=== PATIENT | male | born 1955 | race Caucasian/White ===

== ENCOUNTER 2017-07-17 09:45 | Emergency (ER) | payer SELFPAY ==
--- NOTE | 2017-07-17 11:35 | ER ---
Nurse's Notes [facility] Name: Fred Hardy Age: 61 yrs Sex: Male : 1955 Arrival Date: 07/17/2017 Time: 09:52 Bed Waiting Private MD: Diagnosis: ED Course: 07/17 09:52 Patient arrived in ED. sb2 10:06 Patient's name was called from ER lobby. No response. ph 10:40 Patient's name was called from ER lobby. No response. Unable to locate patient. Will ph disposition as left without being seen by a provider. Administered Medications: No medications were administered Outcome: 11:34 Patient left the ED. ph Signatures: Rhoda Moreno RN RN ph Saumya Boles sb2 Corrections: (The following items were deleted from the chart) 10:23 10:06 Method Of Arrival: Ambulatory ph ph
== END 2017-07-17 11:34 | disposition left against medical advice (07) ==
LOC: ER 09:45
DX: Z53.21 Procedure and treatment not carried out due to patient leaving prior to being seen by health care provider (principal)

== ENCOUNTER 2017-11-13 18:41 | Emergency (ER) | payer BC ==
[2017-11-13 19:32] LABS: Absolute Monocytes 0.9 K/uL (0.1-1.3); Absolute Neutrophil 9.7 K/uL (1.8-8.0); Basophils % 0.7 % (0-1.3); Eosinophils % 0.7 % (0-4.4); Hematocrit 25.8 % (39.6-49.0); Lymphocytes % 15.7 % (15.3-44.8); MCH 31.8 pg (27.0-35.0); MCV 94.9 fL (80-100); Monocytes % 7.1 % (3.3-12.3); RBC Red Blood Cell Count 2.72 M/uL (4.33-5.43)
[2017-11-13 19:33] LABS: Protime INR 1.29
[2017-11-13 19:49] LABS: ALT/SGPT 17 U/L (12-78); AST/SGOT 10 U/L (15-37); Albumin 2.1 g/dL (3.4-5.0); Alkaline Phosphatase 82 U/L (45-117); BUN Blood Urea Nitrogen 19 mg/dL (7-18); Bicarbonate 27 mmol/L (21-32); Bilirubin Direct 0.2 mg/dL (0-0.2); Bilirubin Total 0.5 mg/dL (0.2-1.0); CKMB Creatine Kinase MB < 1.0 ng/mL (0.3-3.6); Creatine Phosphokinase 34 U/L (39-308); Glucose Level 89 mg/dL (74-106); Magnesium 2.2 mg/dL (1.8-2.4); NT PRO-BNP 1406 pg/mL (<125); Potassium 3.3 mmol/L (3.5-5.1); Protein, Total 6.2 g/dL (6.4-8.2); Sodium Level 140 mmol/L (136-145); Troponin (Emerg Dept Use Only) 0.04 ng/mL (0.0-0.045)
[2017-11-13] MEDS ORDERED: ASPIRIN 81 MG CHEWABLE TABLET ONE (21:11)
[2017-11-13] MEDS ORDERED: LORazepam 2 MG/ML VIAL ONE (21:12)
[2017-11-13] MEDS ORDERED: POTASSIUM CL SA 10 MEQ TAB PO ONE (21:12)
[2017-11-13] MEDS ORDERED: PANTOPRAZOLE 40 MG INJ ONE (21:12)
--- NOTE | 2017-11-13 21:23 | RAD REPORT ---
EXAM DESCRIPTION: Hari Single View11/13/2017 7:49 pm CLINICAL HISTORY: Chest pain COMPARISON: 2016 FINDINGS: The lungs appear clear of acute infiltrate. The heart is mildly enlarged. Postsurgical ch anges involve the chest IMPRESSION: No acute abnormalities displayed
[2017-11-13 21:45] LABS: Arterial Blood Carboxyhemoglob 2.3 % (0-1.5); Blood O2 Saturation 92.5 % (92-98.5)
--- NOTE | 2017-11-13 22:01 | ER ---
Nurse's Notes [facility] Name: Fred Hardy Age: 62 yrs Sex: Male : 1955 Arrival Date: 11/13/2017 Time: 18:44 Bed 26 Private MD: Diagnosis: Chest pain. S/P CABG Presentation: 11/13 18:44 Presenting complaint: Patient states: Chest and shoulder pressure that started today at aj 1700, S/P CABG on 11/02. Patient discharged from [facility] today at 1500. Transition of care: patient was not received from another setting of care. Onset of symptoms was November 13, 2017. Risk Assessment: Do you want to hurt yourself or someone else? Patient reports no desire to harm self or others. Initial Sepsis Screen: Does the patient meet any 2 criteria? No. Patient's initial sepsis screen is negative. Does the patient have a suspected source of infection? No. Patient's initial sepsis screen is negative. Care prior to arrival: IV initiated. 18 GA, in the left antecubital area. 18:44 Method Of Arrival: EMS: [facility] 18:44 Acuity: JOSÉ MIGUEL 3 aj Triage Assessment: 18:55 General: Appears in no apparent distress. comfortable, Behavior is cooperative, aj anxious. Pain: Complains of pain in chest. Neuro: Level of Consciousness is awake, alert, obeys commands, Oriented to person, place, time, situation, Appropriate for age. Cardiovascular: Reports chest pain, shortness of breath, Capillary refill < 3 seconds in bilateral fingers Patient's skin is warm and dry. Respiratory: Airway is patent Respiratory effort is even, unlabored, Respiratory pattern is hyperventilation Breath sounds are clear bilaterally. the patient has mild shortness of breath. Derm: Skin is intact, is healthy with good turgor, Skin is pink, warm \\T\\ dry. normal, Bruising that is dark purple, on right upper thigh and right quadriceps. Historical: - Allergies: 18:55 PENICILLINS; aj 18:55 IV contrast; aj - Home Meds: 18:55 aspirin 81 mg Oral TbEC 1 tab once daily [Active]; buspirone 10 mg Oral tab 1 tab 2 aj times per day [Active]; clopidogrel 75 mg oral tab 1 tab once daily [Active]; docusate sodium 100 mg Oral cap 1 cap 2 times per day [Active]; ferrous sulfate 325 mg (65 mg iron) Oral TbEC [Active]; furosemide 40 mg Oral tab 1 tab once daily [Active]; potassium chloride 20 mEq Oral TbER 1 tab once daily [Active]; lisinopril 20 mg Oral tab 1 tab once daily [Active]; metoprolol tartrate 25 mg Oral tab 1 tab 2 times per day [Active]; pantoprazole 40 mg oral TbEC 1 tab once daily [Active]; Senokot 8.6 mg Oral tab 2 tabs once daily [Active]; simvastatin 20 mg Oral tab 1 tab once daily [Active]; Chantix Starting Month Box 0.5 mg (11)- 1 mg (42) oral DsPk [Active]; zolpidem 10 mg Oral tab 1 tab once daily [Active]; - PMHx: 18:55 Hypertension; Hyperlipidemia; aj - PSHx: 18:55 CABG; aj - Immunization history:: Adult Immunizations up to date. - Social history:: Smoking status: Patient/guardian denies using tobacco. - Ebola Screening: : Patient negative for fever greater than or equal to 101.5 degrees Fahrenheit, and additional compatible Ebola Virus Disease symptoms Patient denies exposure to infectious person Patient denies travel to an Ebola-affected area in the 21 days before illness onset No symptoms or risks identified at this time. Screenin:01 Abuse screen: Denies threats or abuse. Denies injuries from another. Nutritional aj screening: No deficits noted. Tuberculosis screening: No symptoms or risk factors identified. Fall Risk None identified. Assessment: 19:29 Reassessment: Patient appears in no apparent distress at this time. No changes from aj previously documented assessment. Patient and/or family updated on plan of care and expected duration. Pain level reassessed. Patient is alert, oriented x 3, equal unlabored respirations, skin warm/dry/pink. Patient is resting in bed with eyes closed. Patient stated that he was trying to sleep. Rated pain at 2/10. Family at bedside. 20:56 Reassessment: Patient is in lobby with family per patient request. Gilmar Benson and Dr keri Alvarado aware and told patient he could go to lobby. Patient not on monitors with IV in place. Patient made aware of risks of going to lobby with no monitoring. Patient states "I just have anxiety and I have got to get out of this room and walk around, but they told me I had to sit in a wheelchair." Lynnette Walsh notified of this nurses concern. 21:00 Pain: Pain does not radiate. Pain began suddenly. mg2 21:12 Reassessment: Patient returned to room and remains seated in wheelchair per patient aj request. Placed on school lunch monitor, BP cuff, and pulse oximeter. Lynnette Walsh speaking to patient's daughter on phone. Vital Signs: 18:55 BP 103 / 62; Pulse 82; Resp 20; Temp 97.7; Pulse Ox 98% on R/A; Weight 107.5 kg; Height aj 6 ft. 4 in. (193.04 cm); 19:15 BP 109 / 64; Pulse 73; Resp 20; Pulse Ox 100% on 2 lpm NC; aj 19:30 BP 99 / 60; Pulse 78; Resp 17; Pulse Ox 98% on R/A; aj 19:47 BP 114 / 66; Pulse 79; Resp 20; Pulse Ox 99% on R/A; aj 20:15 BP 108 / 66; Pulse 81; Resp 17; Pulse Ox 99% on R/A; aj 20:30 BP 122 / 67; Pulse 83; Resp 17; Pulse Ox 99% on R/A; aj 20:45 BP 110 / 69; Pulse 86; Resp 20; Pulse Ox 99% on R/A; aj 21:09 BP 116 / 76; Pulse 87; Resp 19; Pulse Ox 95% on R/A; aj 21:30 BP 110 / 78; Pulse 90; Resp 22; Pulse Ox 99% on R/A; aj 18:55 Body Mass Index 28.85 (107.50 kg, 193.04 cm) aj 19:30 Patient resting comfortably in bed with eyes closed. aj ED Course: 18:44 Patient arrived in ED. aj 18:47 Gilmar Benson PA is PHCP. cp 18:47 Gilmar Miranda MD is Attending Physician. cp 18:47 Triage completed. aj 18:55 Arm band placed on left wrist. Patient placed in an exam room, on a stretcher. aj 19:01 Patient has correct armband on for positive identification. Bed in low position. Side aj rails up X2. Adult w/ patient. cafeteria monitor on. Pulse ox on. NIBP on. 19:01 Maintain EMS IV. Gauge \\T\\ site: 18 to left AC. Patient maintains SpO2 saturation greater aj than 95% on room air. 19:27 Shandra Buchanan, RN is Primary Nurse. aj 19:50 XRAY Chest (1 view) In Process Unspecified. EDMS 20:11 Dami Alvarado MD is Attending Physician. cp 22:05 No provider procedures requiring assistance completed. mg2 22:17 IV discontinued, intact, bleeding controlled, No redness/swelling at site. Pressure mg2 dressing applied. Administered Medications: 21:21 Drug: ProTONIX 40 mg Route: IVP; Site: left antecubital; aj 22:01 Follow up: Response: No adverse reaction mg2 21:21 Drug: Aspirin Chewable Tablet 324 mg Route: PO; aj 22:01 Follow up: Response: No adverse reaction mg2 21:21 Drug: Ativan 0.5 mg Route: IVP; Site: left antecubital; aj 22:01 Follow up: Response: No adverse reaction mg2 21:21 Drug: Potassium Chloride 40 mEq Route: PO; aj 22:00 Follow up: Response: No adverse reaction mg2 Outcome: 22:00 Discharge ordered by . iesha 22:17 Discharged to home via wheelchair. mg2 22:17 Condition: stable 22:17 Discharge instructions given to patient, family, Instructed on discharge instructions, follow up and referral plans. medication usage, Demonstrated understanding of instructions, follow-up care, medications, Prescriptions given X 2. 22:18 Patient left the ED. mg2 Signatures: Dispatcher [employer] EDAZ Shandra Buchanan, RN Dami Lomeli MD MD pkl Page, Corey, PA PA cp Gardose, Michele, RN RN mg2
--- NOTE | 2017-11-13 22:01 | EDPHYS ---
Physician Documentation [facility] Name: Fred Hardy Age: 62 yrs Sex: Male : 1955 Arrival Date: 11/13/2017 Time: 18:44 Bed 26 Private MD: ED Physician Dami Alvarado HPI: 11/13 19:00 This 62 yrs old Male presents to ER via EMS with complaints of Chest Pain. cp 19:00 The patient or guardian reports chest pain that is located primarily in the anterior cp chest wall. 19:00 Onset: today, at 17:00. Associated signs and symptoms: Pertinent positives: shortness cp of breath, Pertinent negatives: cough, diaphoresis, dizziness, lower extremity pain, lower extremity swelling, syncope. Duration: The patient or guardian reports a single episode, that is now resolved. Patient reports recent quadruple bypass surgery on 11-02-2017 by photoengraving sketch maker at [facility]. Patient reports having episode of chest pain yesterday, being evaluated at [place] [facility] and transferred to [facility]. Patient reports he was released this afternoon. Historical: - Allergies: 18:55 PENICILLINS; aj 18:55 IV contrast; aj - Home Meds: 18:55 aspirin 81 mg Oral TbEC 1 tab once daily [Active]; buspirone 10 mg Oral tab 1 tab 2 aj times per day [Active]; clopidogrel 75 mg oral tab 1 tab once daily [Active]; docusate sodium 100 mg Oral cap 1 cap 2 times per day [Active]; ferrous sulfate 325 mg (65 mg iron) Oral TbEC [Active]; furosemide 40 mg Oral tab 1 tab once daily [Active]; potassium chloride 20 mEq Oral TbER 1 tab once daily [Active]; lisinopril 20 mg Oral tab 1 tab once daily [Active]; metoprolol tartrate 25 mg Oral tab 1 tab 2 times per day [Active]; pantoprazole 40 mg oral TbEC 1 tab once daily [Active]; Senokot 8.6 mg Oral tab 2 tabs once daily [Active]; simvastatin 20 mg Oral tab 1 tab once daily [Active]; Chantix Starting Month Box 0.5 mg (11)- 1 mg (42) oral DsPk [Active]; zolpidem 10 mg Oral tab 1 tab once daily [Active]; - PMHx: 18:55 Hypertension; Hyperlipidemia; aj - PSHx: 18:55 CABG; aj - Immunization history:: Adult Immunizations up to date. - Social history:: Smoking status: Patient/guardian denies using tobacco. - Ebola Screening: : Patient negative for fever greater than or equal to 101.5 degrees Fahrenheit, and additional compatible Ebola Virus Disease symptoms Patient denies exposure to infectious person Patient denies travel to an Ebola-affected area in the 21 days before illness onset No symptoms or risks identified at this time. ROS: 19:05 Constitutional: Negative for body aches, chills, fever, poor PO intake. cp 19:05 Eyes: Negative for injury, pain, redness, and discharge. cp 19:05 ENT: Negative for drainage from ear(s), ear pain, sore throat, difficulty swallowing, difficulty handling secretions. 19:05 Cardiovascular: Positive for chest pain, Negative for edema, palpitations. 19:05 Respiratory: Negative for cough, shortness of breath, wheezing. 19:05 Abdomen/GI: Negative for abdominal pain, nausea, vomiting, and diarrhea, constipation, black/tarry stool, rectal bleeding. 19:05 : Negative for urinary symptoms. 19:05 Skin: Negative for cellulitis, rash. 19:05 Neuro: Negative for altered mental status, headache, weakness. 19:05 All other systems are negative. Exam: 18:10 Constitutional: The patient appears in no acute distress, alert, awake, cp non-diaphoretic, non-toxic, well developed, well nourished. 18:10 Head/Face: Normocephalic, atraumatic. Eyes: Pupils equal round and reactive to light, cp extra-ocular motions intact. Lids and lashes normal. Conjunctiva and sclera are non-icteric and not injected. Cornea within normal limits. Periorbital areas with no swelling, redness, or edema. 18:10 ENT: External ear(s): are unremarkable, Nose: is normal, Mouth: Lips: moist, Oral mucosa: moist, Posterior pharynx: is normal, airway is patent, no erythema, no exudate. 18:10 Neck: ROM/movement: is normal, is supple, without pain, no range of motions limitations, no nuchal rigidity. 18:10 Chest/axilla: Palpation: is normal, no crepitus, no tenderness. 18:10 Cardiovascular: Rate: normal, Rhythm: regular, Pulses: Pulses are 2+ in right radial artery and left radial artery. Edema: is not appreciated. 18:10 Respiratory: the patient does not display signs of respiratory distress, Respirations: labored breathing, is not present, intercostal retractions, are absent, shallow respirations, are not present, splinting, is not noted, Breath sounds: decreased breath sounds, that are mild, are located in both bases, stridor, is not appreciated, wheezing: is not appreciated. 18:10 Abdomen/GI: Inspection: distension, is not seen, scar(s), Bowel sounds: active, all quadrants, Palpation: soft, in all quadrants, mild abdominal tenderness, in all quadrants. 18:10 Back: pain, is absent, ROM is normal. 18:10 Skin: cellulitis, is not appreciated, no rash present. 18:10 Neuro: Orientation: to person, place \T\ time. Mentation: lucid, able to follow commands, Cerebellar function: is grossly normal, Motor: moves all fours, strength is normal, Sensation: no obvious gross deficits. 18:45 ECG was reviewed by the Attending Physician. cp Vital Signs: 18:55 BP 103 / 62; Pulse 82; Resp 20; Temp 97.7; Pulse Ox 98% on R/A; Weight 107.5 kg; Height aj 6 ft. 4 in. (193.04 cm); 19:15 BP 109 / 64; Pulse 73; Resp 20; Pulse Ox 100% on 2 lpm NC; aj 19:30 BP 99 / 60; Pulse 78; Resp 17; Pulse Ox 98% on R/A; aj 19:47 BP 114 / 66; Pulse 79; Resp 20; Pulse Ox 99% on R/A; aj 20:15 BP 108 / 66; Pulse 81; Resp 17; Pulse Ox 99% on R/A; aj 20:30 BP 122 / 67; Pulse 83; Resp 17; Pulse Ox 99% on R/A; aj 20:45 BP 110 / 69; Pulse 86; Resp 20; Pulse Ox 99% on R/A; aj 21:09 BP 116 / 76; Pulse 87; Resp 19; Pulse Ox 95% on R/A; aj 21:30 BP 110 / 78; Pulse 90; Resp 22; Pulse Ox 99% on R/A; aj 18:55 Body Mass Index 28.85 (107.50 kg, 193.04 cm) aj 19:30 Patient resting comfortably in bed with eyes closed. aj MDM: 18:47 Patient medically screened. 19:30 Differential diagnosis: pneumonia pulmonary embolism, acute OR, pericarditis, cp esophagitis, GERD. 20:05 Physician consultation: DR Robins, cardiothoracic surgery \T\[facility], does not feel patient cp needs to be transferred at this time and is safe for f/u in clinic. 20:46 Data reviewed: vital signs, nurses notes, lab test result(s), EKG, radiologic studies, cp plain films. Test interpretation: by ED physician or midlevel provider: ECG, plain radiologic studies. 21:14 ED course: VSS. Pain resolved. Patient seen and evaluated by DR Alvarado who requests repeat cp EKG and troponin. Will discharge to home if repeat EKG and troponin level negative. 22:01 ED course: Patient feeling better. Discussed EKG, lab and X' rays with patient and iesha Raman ( [facility] ) No indication for transfer or admission.. 11/13 18:59 Order name: Basic Metabolic Panel; Complete Time: 19:52 11/13 20:44 Interpretation: Normal except: K 3.3; BUN 19; GFR 68; CA 7.7. 11/13 18:59 Order name: CBC with Diff; Complete Time: 19:52 11/13 19:53 Interpretation: Normal except: WBC 12.7; RBC 2.72; HGB 8.7; HCT 25.8; MCV 94.9; PLT cp 469; RDW 15.5; TD% 75.8; NEUT A 9.7. 11/13 18:59 Order name: Ckmb; Complete Time: 19:52 11/13 18:59 Order name: CPK; Complete Time: 19:52 11/13 20:45 Interpretation: CPK 34; Reviewed. 11/13 18:59 Order name: LFT's; Complete Time: 19:52 11/13 19:53 Interpretation: Normal except: AST 10; TP 6.2; ALB 2.1; GLOB 4.1; A/G 0.5. 11/13 18:59 Order name: Magnesium; Complete Time: 19:52 11/13 18:59 Order name: NT PRO-BNP; Complete Time: 19:52 cp 11 19:53 Interpretation: Abnormal: NT PRO-BNP 1406. 11/13 18:59 Order name: PT-INR; Complete Time: 19:52 cp 11 20:45 Interpretation: Abnormal: PT 15.3. cp / 18:59 Order name: Ptt, Activated; Complete Time: 19:52 11/13 18:59 Order name: Troponin (emerg Dept Use Only); Complete Time: 19:52 11/13 19:54 Interpretation: TROPED 0.04; Reviewed. 11/13 19:31 Order name: Lipase; Complete Time: 20:44 cp 11/13 20:45 Interpretation: Within normal limits: LIP 131. 11/13 19:31 Order name: LAB Add On 11/13 20:56 Order name: ABG; Complete Time: 21:57 11/13 21:11 Order name: Troponin I; Complete Time: 21:57 11/13 18:59 Order name: XRAY Chest (1 view); Complete Time: 21:57 cp 11/13 18:59 Order name: EKG; Complete Time: 18:59 cp 11/13 18:59 Order name: Cardiac monitoring; Complete Time: 19:27 cp 11/13 18:59 Order name: EKG - Nurse/Tech; Complete Time: 19:27 cp 11/13 18:59 Order name: IV Saline Lock; Complete Time: 19:27 11/13 18:59 Order name: Labs collected and sent; Complete Time: 19:28 11/13 18:59 Order name: O2 Per Protocol; Complete Time: 19:28 11/13 18:59 Order name: O2 Sat Monitoring; Complete Time: 19:28 11/13 21:11 Order name: EKG; Complete Time: 21:12 cp EC:45 Rate is 83 beats/min. Rhythm is regular. DC interval is normal. QRS interval is normal. cp QT interval is normal. T waves are Flattened in lead aVL. Interpreted by me. Reviewed by me. Administered Medications: 21:21 Drug: ProTONIX 40 mg Route: IVP; Site: left antecubital; aj 22:01 Follow up: Response: No adverse reaction mg2 21:21 Drug: Aspirin Chewable Tablet 324 mg Route: PO; aj 22:01 Follow up: Response: No adverse reaction mg2 21:21 Drug: Ativan 0.5 mg Route: IVP; Site: left antecubital; aj 22: Follow up: Response: No adverse reaction mg2 21:21 Drug: Potassium Chloride 40 mEq Route: PO; aj 22:00 Follow up: Response: No adverse reaction mg2 Disposition: 21:59 Co-signature as Attending Physician, Dami Alvarado MD. pkl Disposition: 11/13/17 22:00 Discharged to Home. Impression: Chest pain. S/P CABG. - Condition is Stable. - Prescriptions for Ativan 1 mg Oral Tablet - take 1 tablet by ORAL route every 8 hours As needed; 20 tablet. Tylenol- Codeine #3 300-30 mg Oral Tablet - take 1 tablet by ORAL route every 6 hours As needed; 30 tablet. - Medication Reconciliation Form, Thank You Letter, Antibiotic Education, Prescription Opioid Use form. - Follow up: Private Physician; When: 1 - 2 days; Reason: Re-evaluation by your physician. - Problem is new. - Symptoms have improved. Signatures: Dispatcher [employer] EDShandra Duque, RN RN Dami Lin MD MD pkl Gilmar Benson PA PA Ab Vaz RN RN mg2 Corrections: (The following items were deleted from the chart) 20:45 19:52 Normal except: K 3.3; BUN 19; GFR 68. cp cp 22:18 22:00 11/13/2017 22:00 Discharged to Home. Impression: Chest pain. S/P CABG. Condition mg2 is Stable. Forms are Medication Reconciliation Form, Thank You Letter, Antibiotic Education, Prescription Opioid Use. Follow up: Private Physician; When: 1 - 2 days; Reason: Re-evaluation by your physician. Problem is new. Symptoms have improved. pkl
--- OUTSIDE RECORDS SUMMARY | 2017-11-14 08:11 | XMS REPORT | Clinical Summary ---
:1955 Author Organization [facility] Address [address] [place] [address] Phone Care Team Providers Name Role Phone Unavailable Primary Care Provider Unavailable Allergies No Known Allergies Current Medications No known medications Active Problems Problem Noted Date CVA (cerebral vascular accident) ([facility]) 08/28/2015 Essential hypertension with goal blood pressure less than 140/90 08/28/2015 Cocaine abuse 08/28/2015 Tobacco abuse 08/28/2015 Left hemiparesis ([facility]) 08/27/2015 Family History Medical History Relation Name Comments Diabetes Father Hypertension Father Stroke Father Diabetes Mother Hypertension Mother Relation Name Status Comments Father Mother Social History Tobacco Use Types Packs/Day Years Used Date Current Every Day Smoker Cigarettes 0.5 Alcohol Use Drinks/Week oz/Week Comments No Sex Assigned at Date Recorded Not on file Last Filed Vital Signs Not on file Plan of Treatment Not on file Results Not on fileafter 11/12/2016
--- NOTE | 2017-11-14 12:10 | EKG ---
Test Date: 2017-11-13 Test Time: 21:52:01 Metal Stamping Machine Operator: MEASUREMENT RESULTS: Intervals: Rate: 84 FL: 160 QRSD: 76 QT: 372 QTc: 439 [place]: P: 43 FL: 160 QRS: 73 T: 76 INTERPRETIVE STATEMENTS: Normal sinus rhythm Nonspecific ST abnormality Abnormal ECG Compared to ECG 08/27/2015 14:44:11 ST (T wave) deviation now present Myocardial infarct finding no longer present Electronically Signed On 11-14-17 12:08:44 CDT by Lonny Ascencio
--- NOTE | 2017-11-14 12:12 | EKG ---
Test Date: 2017-11-13 Test Time: 18:39:07 Health Policy Analyst: MEASUREMENT RESULTS: Intervals: Rate: 83 NE: 158 QRSD: 84 QT: 398 QTc: 467 [place]: P: 50 NE: 158 QRS: 62 T: 65 INTERPRETIVE STATEMENTS: Normal sinus rhythm Normal ECG Compared to ECG 08/27/2015 14:44:11 Myocardial infarct finding no longer present Electronically Signed On 11-14-17 12:08:52 CDT by Lonny Ascencio
== END 2017-11-13 22:18 | disposition home or self-care (01) ==
LOC: ER 18:41
DX: R07.9 Chest pain, unspecified (principal); Z95.1 Presence of aortocoronary bypass graft; I10 Essential (primary) hypertension; E78.5 Hyperlipidemia, unspecified; Z79.82 Long term (current) use of aspirin; Z88.0 Allergy status to penicillin; Z91.041 Radiographic dye allergy status
CPT/HCPCS: 36415; 71045; 80048; 80076; 82550; 82553; 82805; 83690; 83735; 83880; 84484; 85025; 85610; 85730; 93005; 96374; 96375; 99285; C9113

== ENCOUNTER 2018-01-09 14:59 | Emergency (ER) | payer BC ==
--- OUTSIDE RECORDS SUMMARY | 2018-01-09 15:02 | XMS REPORT | Clinical Summary ---
:1955 Author Organization [facility] Address [address] [place], [place] [address] [address] Care Team Providers Name Role Phone Connor Primary Care Provider Allergies No Known Allergies Medications No known medications Active Problems Problem Noted Date CVA (cerebral vascular accident) 08/28/2015 Essential hypertension with goal blood pressure less than 140/90 08/28/2015 Cocaine abuse 08/28/2015 Tobacco abuse 08/28/2015 Left hemiparesis 08/27/2015 Family History Medical History Relation Name Comments Diabetes Father Hypertension Father Stroke Father Diabetes Mother Hypertension Mother Relation Name Status Comments Father Mother Social History Tobacco Use Types Packs/Day Years Used Date Current Every Day Smoker Cigarettes 0.5 Alcohol Use Drinks/Week oz/Week Comments No Sex Assigned at Date Recorded Not on file Job Start Date Occupation Industry Not on file Not on file Not on file Travel History Travel Start Travel End No recent travel history available. Last Filed Vital Signs Not on file Plan of Treatment Not on file Results Not on fileafter 01/08/2017 Insurance Payer Benefit Plan / Subscriber ID Type Phone Address Group BLUE CROSS/BLUE BCBS PPO POS EPO xxxxxxxxxxxx PPO [phone] [address] [place] [address] Advance Directives For more information, please contact:[address], [place] [phone] Code Status Date Activated Date Inactivated Comments Full Code 08/27/2015 10:05 PM 08/31/2015 1:59 PM This code status was determined by: Patient
[2018-01-09] MEDS ORDERED: ONDANSETRON 4 MG/2 ML VIAL ONE (15:58)
[2018-01-09 16:07] LABS: Absolute Lymphocytes (CBC) 1.5 K/uL (0.7-4.9); Absolute Monocytes 0.7 K/uL (0.1-1.3); Absolute Neutrophil 6.5 K/uL (1.8-8.0); Lymphocytes % 16.8 % (15.3-44.8); MCH 27.4 pg (27.0-35.0); MPV 8.1 fL (7.6-11.3); Monocytes % 7.8 % (3.3-12.3); RBC Red Blood Cell Count 4.05 M/uL (4.33-5.43)
[2018-01-09 16:11] LABS: Protime INR 1.28
[2018-01-09] MEDS ORDERED: NA CHLORIDE 0.9% 1,000 ML ONE (16:20)
[2018-01-09 16:25] LABS: ALT/SGPT 12 U/L (12-78); AST/SGOT 13 U/L (15-37); Albumin 2.9 g/dL (3.4-5.0); Alkaline Phosphatase 97 U/L (45-117); BUN Blood Urea Nitrogen 13 mg/dL (7-18); Bicarbonate 22 mmol/L (21-32); Bilirubin Direct 0.1 mg/dL (0-0.2); Bilirubin Total 0.4 mg/dL (0.2-1.0); Glucose Level 95 mg/dL (74-106); Lipase 89 U/L (73-393); Magnesium 1.9 mg/dL (1.8-2.4); NT PRO-BNP 403 pg/mL (<125); Potassium 3.6 mmol/L (3.5-5.1); Protein, Total 8.1 g/dL (6.4-8.2); Sodium Level 134 mmol/L (136-145); Troponin (Emerg Dept Use Only) < 0.02 ng/mL (0.0-0.045)
[2018-01-09] MEDS ORDERED: CLINDAMYCIN 600MG/D5W 600 MG/50 ML BAG IV ONE (17:13)
--- NOTE | 2018-01-09 17:29 | RAD REPORT ---
EXAM DESCRIPTION: Hari Single View01/09/2018 4:27 pm CLINICAL HISTORY: sob COMPARISON: 11/13/2017 FINDINGS: The lungs appear clear of acute infiltrate. The heart is mildly enlarged. Postsurgical changes involve the chest. IMPRESSION: No acute abnormalities displayed
--- NOTE | 2018-01-09 17:46 | P.CNS ---
Date of Consult: 01/09/18 Reason for Consult: ER consultation Requesting Physician: Nick Roberts Primary Care Provider: Dr. Solano; Cardiology-Dr. Castle([facility]); Cardiovascular surgery([facility]) Chief Complaint: Nausea, vomiting and cellulitis History of Present Illness: 62-year-old male presented to emergency room with nausea, vomiting and cellulitis to the sternal region. Patient reported nausea and vomiting over last several days. Patient is getting cardiac rehab. Today at cardiac rehab he was found to be tachycardic. Patient also reported increasing erythema and swelling to the sternal region. Patient had CABG x4 vessels done about 1-2 months ago. He has not followed up with his cardiovascular surgeon since that time. Warmth, erythema noted to the sternal region. In the ER patient evaluated. Patient appeared to be dehydrated with possible early sepsis. White count 8.9, pro calcitonin and lactic acid pending at this time. I was asked to evaluate the patient for possible need for admission for transfer to his cardiovascular surgeon. Patient reports history of hypertension, hyperlipidemia, pre diabetes, former tobacco use, and CAD with CABG x4 vessels recently. Patient also currently being evaluated by oncology for possible if protein abnormality. Patient reports some erythema to the sternal region from the prior scars. He comes and goes. This week there was more edema, swelling and mild exudate. Allergies No Known Allergies Allergy (Unverified 08/27/15 17:54) Home medications list reviewed: Yes - Past Medical/Surgical History Diabetic: Yes -: Pre diabetes -: Hypertension -: Hyperlipidemia -: CAD with prior CABG x4 vessel -: Former tobacco use -: CABG x4 vessels -: Hernia repair Psychosocial/ Personal History: Patient is single. He has 1 child. - Family History Father Family History: Reviewed- Non-Contributory - Social History Smoking Status: Current every day smoker Counseled patient to stop smoking for: less than 10 minutes Smoking therapy provided: Yes Patient receptive to therapy: Yes Alcohol use: No CD- Drugs: No Caffeine use: No Place of Residence: Home Review of Systems General: Weakness, As per HPI Eyes: Unremarkable ENT: Unremarkable Respiratory: Unremarkable Cardiovascular: Unremarkable Gastrointestinal: Unremarkable Genitourinary: Unremarkable Musculoskeletal: Unremarkable Integumentary: As per HPI Neurological: As per HPI Lymphatics: Unremarkable Physical Examination General: Alert, In no apparent distress, Oriented x3, Cooperative, Other (Mild tachycardia noted but improved with IV fluid hydration) HEENT: Atraumatic, Normocephalic, PERRLA, Other (Dry mucous membranes) Neck: Supple Respiratory: Clear to auscultation bilaterally, Normal air movement Cardiovascular: Other (Erythema, edema, mild fluctuance noted to the sternal region. There are some areas of fluctuance along the line of the scars from prior CABG. There is dried exudate noted to some areas. Area of erythema covers a large area of the upper chest.), Abnormal pulses (Sinus tachycardia) Gastrointestinal: Normal bowel sounds, Soft and benign, Non-distended, No tenderness, No masses, No rebound, No guarding Integumentary: Skin breakdown (Some exudate noted too scarred areas from sternal ), Erythema (To the sternal region), Warmth (2 sternal region), Other (As above) Neurological: Normal speech, Normal strength at 5/5 x4 extr, Normal tone, Normal affect Laboratory Data (last 24 hrs) 01/09/18 15:47: PT 15.1 H, INR 1.28 01/09/18 15:47: WBC 8.9, Hgb 11.1 L, Hct 34.0 L, Plt Count 381 01/09/18 15:47: Sodium 134 L, Potassium 3.6, BUN 13, Creatinine 1.00, Glucose 95 , Magnesium 1.9, Total Bilirubin 0.4, AST 13 L, ALT 12, Alkaline Phosphatase 97 , Lipase 89 Conclusions/Impression: Impression: Nausea, vomiting, tachycardia secondary to cellulitis with possible abscess/ seroma to sternal region with history of CABG x4 vessel complicated with possible early sepsis Hypertension Hyperlipidemia CAD with prior CABG Pre diabetes Former tobacco use Plan: Patient appears to have cellulitis to the sternal region. This is complicated with prior CABG x4 vessel probably 1-2 months ago. Early sepsis is likely. There are areas of dried exudate, erythema, and warmth. There are noted areas of fluctuance to the sternal region. Suspicious for seroma versus abscess. Patient with nausea and vomiting and tachycardia likely early sepsis. Pro calcitonin and lactic acid pending at this time. Case discussed at length with patient about the possible need for further intervention and IV antibiotic therapy. Patient may require irrigation and debridement. Further analysis will be required. MRSA is part of the differential. Case discussed at length with patient. Patient wishes to be transferred to his cardiovascular surgeon for further treatment. Case discussed at length with ER provider. ER provider will try to transfer patient to [facility] for continuity of care at the request of the patient. I agree with current plan. Patient will need to continue with his medications for hypertension, hyperlipidemia, and CAD. Please note patient is currently being evaluated by oncology for protein abnormality. Time Spent Managing Pts care (In Minutes): 55
--- NOTE | 2018-01-09 18:40 | ER ---
Nurse's Notes [facility] Name: Fred Hardy Age: 62 yrs Sex: Male : 1955 Arrival Date: 01/09/2018 Time: 15:04 Bed 15 Private MD: Diagnosis: Dehydration;Tachycardia, unspecified;Dyspnea, unspecified;Weakness Presentation: 01/09 15:07 Presenting complaint: Patient states: He went to cardiac rehab today and his heart rate aj1 was 131. Reports that he has been vomiting for the past 3 days, poor appetite, reports chronic shoulder left shoulder pain that is worse today than usual. Reports he has been having intermittent chest pains that last about 30 seconds for the past week along with shortness of breath. Denies fever, cough. Transition of care: patient was not received from another setting of care. Onset of symptoms was January 09, 2018. Risk Assessment: Do you want to hurt yourself or someone else? Patient reports no desire to harm self or others. Initial Sepsis Screen: Does the patient meet any 2 criteria? RR > 20 per min. HR > 90 bpm. Care prior to arrival: None. 15:07 Method Of Arrival: Ambulatory aj1 15:07 Acuity: JOSÉ MIGUEL 2 aj1 20:41 Initial Sepsis Screen: Does the patient have a suspected source of infection? Yes:. tl3 Triage Assessment: 15:13 General: Appears uncomfortable, Behavior is calm, cooperative. Pain: Complains of pain aj1 in anterior aspect of left shoulder and posterior aspect of left shoulder Pain currently is 5 out of 10 on a pain scale. Neuro: Level of Consciousness is awake, alert, obeys commands. Cardiovascular: Patient's skin is warm and dry. Respiratory: Airway is patent Respiratory effort is even, unlabored, Respiratory pattern is regular, symmetrical. Historical: - Allergies: 15:13 IV contrast; aj1 15:13 PENICILLINS; aj1 - Home Meds: 15:13 aspirin 81 mg Oral TbEC 1 tab once daily [Active]; buspirone 10 mg Oral tab 1 tab 2 aj1 times per day [Active]; Chantix Starting Month Box 0.5 mg (11)- 1 mg (42) Oral DsPk [Active]; clopidogrel 75 mg Oral tab 1 tab once daily [Active]; docusate sodium 100 mg Oral cap 1 cap 2 times per day [Active]; ferrous sulfate 325 mg (65 mg iron) Oral TbEC [Active]; furosemide 40 mg Oral tab 1 tab once daily [Active]; lisinopril 20 mg Oral tab 1 tab once daily [Active]; metoprolol tartrate 25 mg Oral tab 1 tab 2 times per day [Active]; pantoprazole 40 mg Oral TbEC 1 tab once daily [Active]; potassium chloride 20 mEq Oral TbER 1 tab once daily [Active]; Senokot 8.6 mg Oral tab 2 tabs once daily [Active]; simvastatin 20 mg Oral tab 1 tab once daily [Active]; zolpidem 10 mg Oral tab 1 tab once daily [Active]; - PMHx: 15:13 Hyperlipidemia; Hypertension; aj1 - PSHx: 15:13 quadruple bypass; Hernia repair; aj1 - Immunization history:: Flu vaccine is not up to date. - Social history:: Smoking status: Patient/guardian denies using tobacco. - Ebola Screening: : Patient denies travel to an Ebola-affected area in the 21 days before illness onset. Screenin:06 Abuse screen: Denies threats or abuse. Denies injuries from another. Nutritional hb screening: No deficits noted. Tuberculosis screening: No symptoms or risk factors identified. Fall Risk None identified. Assessment: 15:40 General: Appears in no apparent distress. Behavior is calm, cooperative. Pain: Denies hb pain. Neuro: Level of Consciousness is awake, alert, obeys commands, Oriented to person, place, time, situation. Cardiovascular: Heart tones S1 S2 present Capillary refill < 3 seconds Patient's skin is warm and dry. Rhythm is sinus tachycardia. Respiratory: Airway is patent Trachea midline Respiratory effort is even, unlabored, Respiratory pattern is regular, symmetrical, Breath sounds are clear bilaterally. GI: Reports nausea. : No signs and/or symptoms were reported regarding the genitourinary system. EENT: No signs and/or symptoms were reported regarding the EENT system. Derm: Skin is intact, is healthy with good turgor, Skin is pink, warm \T\ dry. Musculoskeletal: No signs and/or symptoms reported regarding the musculoskeletal system. 16:05 Reassessment: Pt dry heaving, PA Yamil notified, Zofran administered as ordered. at hb bedside. VSS. 17:00 Reassessment: Patient appears in no apparent distress at this time. No changes from hb previously documented assessment. Patient and/or family updated on plan of care and expected duration. Pain level reassessed. Patient is alert, oriented x 3, equal unlabored respirations, skin warm/dry/pink. 17:30 Reassessment: initiated transfer with [facility] for cellulitis/ continuity of ss care. Awaiting for call back from transfer center. 18:30 Reassessment: Patient appears in no apparent distress at this time. No changes from hb previously documented assessment. Patient and/or family updated on plan of care and expected duration. Pain level reassessed. Patient is alert, oriented x 3, equal unlabored respirations, skin warm/dry/pink. 20:37 Reassessment: Patient appears in no apparent distress at this time. No changes from tl3 previously documented assessment. Patient and/or family updated on plan of care and expected duration. Pain level reassessed. Patient is alert, oriented x 3, equal unlabored respirations, skin warm/dry/pink. awaiting ambulance for transport. Vital Signs: 15:13 BP 123 / 54; Pulse 124; Resp 24; Temp 97.6; Pulse Ox 93% on R/A; Weight 90.26 kg (R); aj1 Height 6 ft. 0 in. (182.88 cm) (R); 16:42 BP 110 / 78 Supine; Pulse 102; Resp 20; Pulse Ox 100% on 2 lpm NC; hb 16:49 BP 105 / 75 Supine; Pulse 105; Resp 26; Pulse Ox 93% on 2 lpm NC; mh5 16:50 BP 105 / 75 Sitting; Pulse 111; Resp 18; Pulse Ox 100% on 2 lpm NC; hb 16:51 BP 96 / 60 Sitting; Pulse 111; Resp 30; Pulse Ox 93% on 2 lpm NC; mh5 16:55 BP 98 / 77 Standing; Pulse 123; Resp 22; Pulse Ox 94% on 2 lpm NC; mh5 17:05 BP 98 / 77 Standing; Pulse 122; Resp 22; Pulse Ox 100% on 2 lpm NC; hb 18:00 BP 109 / 82; Pulse 98; Resp 22; Pulse Ox 96% on 2 lpm NC; hb 19:03 BP 110 / 77; Pulse 96; Resp 24; Pulse Ox 95% on 3 lpm NC; hb 20:37 BP 126 / 64; Pulse 102; Resp 16; Pulse Ox 100% on 2 lpm NC; tl3 15:13 Body Mass Index 26.99 (90.26 kg, 182.88 cm) aj1 ED Course: 15:04 Patient arrived in ED. sb2 15:11 Triage completed. aj1 15:13 Arm band placed on Patient placed in an exam room. aj1 15:19 Jannet Vasquez, IZABELLA is Primary Nurse. hb 15:20 Yamil Roberts PA is PHCP. jr8 15:20 Ulisses Hinton MD is Attending Physician. jr8 15:50 Inserted saline lock: 22 gauge in right wrist, using aseptic technique. Blood collected.hb 15:51 EKG done, by deployment technician. reviewed by Yamil QUIROS. dt2 16:06 Patient has correct armband on for positive identification. Placed in gown. Bed in low hb position. Call light in reach. Side rails up X 1. 16:28 XRAY Chest (1 view) In Process Unspecified. EDMS 20:37 No provider procedures requiring assistance completed. tl3 20:37 Patient transferred, IV remains in place. tl3 Administered Medications: 16:00 Drug: Zofran 4 mg Route: IVP; Site: right wrist; hb 16:21 Follow up: Response: No adverse reaction; Nausea is decreased hb 16:10 Drug: NS 0.9% 1000 ml Route: IV; Rate: 1000 ml; Site: right wrist; hb 20:39 Follow up: IV Status: Completed infusion; IV Intake: 1000ml tl3 18:15 Drug: Clindamycin 600 mg Route: IVPB; Infused Over: 30 mins; Site: right wrist; hb 20:38 Follow up: IV Status: Completed infusion; IV Intake: 50ml tl3 Intake: 20:38 IV: 50ml; Total: 50ml. tl3 20:39 IV: 1000ml; Total: 1050ml. tl3 Outcome: 18:39 ER care complete, transfer ordered by . rn 20:37 Transferred by ground EMS to [facility], Transfer form tl3 completed. 20:40 Condition: stable tl3 20:40 Instructed on the need for transfer, Demonstrated understanding of instructions, Report called to Isadora Ballard RN at [facility] 21:14 Patient left the ED. tl3 Signatures: Dispatcher [employer] Hermelinda Winchester, IZABELLA RN aj1 Ulisses Hinton MD MD rn Smirch, Shelby, RN RN ss Yamil Roberts PA PA jr8 Jannet Vasquez RN RN Radha Sharp [facility] Saumya Boles 2 Madeleine Mares RN RN tl3 Rossi Allison dt2 Corrections: (The following items were deleted from the chart) 17:11 17:08 Clindamycin 600 mg IVPB in right wrist over 30 mins hb hb 18:33 16:42 BP 110 / 78 Supine; Pulse 102bpm; Resp 20bpm; Pulse Ox 100% RA; hb hb 18:33 16:50 BP 105 / 75 Sitting; Pulse 111bpm; Resp 18bpm; Pulse Ox 100% RA; hb hb 18:33 17:05 BP 98 / 77 Standing; Pulse 122bpm; Resp 22bpm; Pulse Ox 100% RA; hb hb
--- NOTE | 2018-01-09 18:40 | EDPHYS ---
Physician Documentation [facility] Name: Fred Hardy Age: 62 yrs Sex: Male : 1955 Arrival Date: 01/09/2018 Time: 15:04 Bed 15 Private MD: ED Physician Ulisses Hinton HPI: 01/09 16:06 This 62 yrs old Male presents to ER via Ambulatory with complaints of jr8 Palpitations. 16:06 The patient presents with a history of heart racing. Onset: The symptoms/episode jr8 began/occurred acutely, today. Duration: The patient or guardian reports a single episode, that is still ongoing. Modifying factors: The symptoms are aggravated by nothing. The symptoms are alleviated by nothing. Associated signs and symptoms: Pertinent positives: SOB, vomiting. Severity of symptoms: At their worst the symptoms were moderate in the emergency department the symptoms are unchanged. The patient has not experienced similar symptoms in the past. The patient has not recently seen a physician. Stated that he has been vomiting for the past 3 days on/off. Denies diarrhea or fevers. Stated that while he was at cardiac rehab noticed that he was feeling differently. HR there was in the 130s. Historical: - Allergies: 15:13 IV contrast; aj1 15:13 PENICILLINS; aj1 - Home Meds: 15:13 aspirin 81 mg Oral TbEC 1 tab once daily [Active]; buspirone 10 mg Oral tab 1 tab 2 aj1 times per day [Active]; Chantix Starting Month Box 0.5 mg (11)- 1 mg (42) Oral DsPk [Active]; clopidogrel 75 mg Oral tab 1 tab once daily [Active]; docusate sodium 100 mg Oral cap 1 cap 2 times per day [Active]; ferrous sulfate 325 mg (65 mg iron) Oral TbEC [Active]; furosemide 40 mg Oral tab 1 tab once daily [Active]; lisinopril 20 mg Oral tab 1 tab once daily [Active]; metoprolol tartrate 25 mg Oral tab 1 tab 2 times per day [Active]; pantoprazole 40 mg Oral TbEC 1 tab once daily [Active]; potassium chloride 20 mEq Oral TbER 1 tab once daily [Active]; Senokot 8.6 mg Oral tab 2 tabs once daily [Active]; simvastatin 20 mg Oral tab 1 tab once daily [Active]; zolpidem 10 mg Oral tab 1 tab once daily [Active]; - PMHx: 15:13 Hyperlipidemia; Hypertension; aj1 - PSHx: 15:13 quadruple bypass; Hernia repair; aj1 - Immunization history:: Flu vaccine is not up to date. - Social history:: Smoking status: Patient/guardian denies using tobacco. - Ebola Screening: : Patient denies travel to an Ebola-affected area in the 21 days before illness onset. ROS: 16:06 Eyes: Negative for injury, pain, redness, and discharge, ENT: Negative for injury, jr8 pain, and discharge, Neck: Negative for injury, pain, and swelling, Back: Negative for injury and pain, MS/Extremity: Negative for injury and deformity, Skin: Negative for injury, rash, and discoloration, Neuro: Negative for headache, weakness, numbness, tingling, and seizure. 16:06 Cardiovascular: Positive for palpitations, Negative for chest pain. 16:06 Respiratory: Positive for dyspnea on exertion, shortness of breath, Negative for cough, hemoptysis, orthopnea, pleurisy, sputum production, wheezing. 16:06 Abdomen/GI: Positive for nausea and vomiting, Negative for abdominal pain, diarrhea, constipation, abdominal cramps, abdominal distension, anorexia, dysphagia, hematemesis, black/tarry stool, rectal pain, rectal bleeding, bowel incontinence, flatulence. Exam: 16:06 Eyes: Pupils equal round and reactive to light, extra-ocular motions intact. Lids and jr8 lashes normal. Conjunctiva and sclera are non-icteric and not injected. Cornea within normal limits. Periorbital areas with no swelling, redness, or edema. ENT: Nares patent. No nasal discharge, no septal abnormalities noted. Tympanic membranes are normal and external auditory canals are clear. Oropharynx with no redness, swelling, or masses, exudates, or evidence of obstruction, uvula midline. Mucous membranes moist. Neck: Trachea midline, no thyromegaly or masses palpated, and no cervical lymphadenopathy. Supple, full range of motion without nuchal rigidity, or vertebral point tenderness. No Meningismus. Respiratory: Lungs have equal breath sounds bilaterally, clear to auscultation and percussion. No rales, rhonchi or wheezes noted. No increased work of breathing, no retractions or nasal flaring. Abdomen/GI: Soft, non-tender, with normal bowel sounds. No distension or tympany. No guarding or rebound. No evidence of tenderness throughout. Back: No spinal tenderness. No costovertebral tenderness. Full range of motion. Skin: Warm, dry with normal turgor. Normal color with no rashes, no lesions MS/ Extremity: Pulses equal, no cyanosis. Neurovascular intact. Full, normal range of motion. Neuro: Awake and alert, GCS 15, oriented to person, place, time, and situation. Cranial nerves II-XII grossly intact. Motor strength 5/5 in all extremities. Sensory grossly intact. Cerebellar exam normal. Normal gait. 16:06 Chest/axilla: Inspection: cellulitis, CABG incision noted with surrounding cellulitis present . 16:06 Cardiovascular: Rate: tachycardic, Rhythm: regular, Pulses: Pulses are 2+ in right radial artery and left radial artery. Heart sounds: normal, normal S1and S2, no S3 or S4, no murmur, no rub, no gallop, Edema: is not appreciated, JVD: is not appreciated. Vital Signs: 15:13 BP 123 / 54; Pulse 124; Resp 24; Temp 97.6; Pulse Ox 93% on R/A; Weight 90.26 kg (R); aj1 Height 6 ft. 0 in. (182.88 cm) (R); 16:42 BP 110 / 78 Supine; Pulse 102; Resp 20; Pulse Ox 100% on 2 lpm NC; hb 16:49 BP 105 / 75 Supine; Pulse 105; Resp 26; Pulse Ox 93% on 2 lpm NC; mh5 16:50 BP 105 / 75 Sitting; Pulse 111; Resp 18; Pulse Ox 100% on 2 lpm NC; hb 16:51 BP 96 / 60 Sitting; Pulse 111; Resp 30; Pulse Ox 93% on 2 lpm NC; mh5 16:55 BP 98 / 77 Standing; Pulse 123; Resp 22; Pulse Ox 94% on 2 lpm NC; mh5 17:05 BP 98 / 77 Standing; Pulse 122; Resp 22; Pulse Ox 100% on 2 lpm NC; hb 18:00 BP 109 / 82; Pulse 98; Resp 22; Pulse Ox 96% on 2 lpm NC; hb 19:03 BP 110 / 77; Pulse 96; Resp 24; Pulse Ox 95% on 3 lpm NC; hb 20:37 BP 126 / 64; Pulse 102; Resp 16; Pulse Ox 100% on 2 lpm NC; tl3 15:13 Body Mass Index 26.99 (90.26 kg, 182.88 cm) aj1 MDM: 15:20 Patient medically screened. 17:28 Data reviewed: vital signs, nurses notes, lab test result(s), EKG, radiologic studies, 8 plain films. Data interpreted: Pulse oximetry: on room air is 100 %. Interpretation: normal. Counseling: I had a detailed discussion with the patient and/or guardian regarding: the historical points, exam findings, and any diagnostic results supporting the discharge/admit diagnosis, lab results, radiology results, the need for further work-up and treatment in the hospital. ED course: After discussing case with Dr. Allen for admission. Patient would rather go back to [facility] since he had his surgery there . 01/09 15:20 Order name: Basic Metabolic Panel; Complete Time: 16:28 01/09 15:20 Order name: CBC with Diff; Complete Time: 16:28 01/09 15:20 Order name: LFT's; Complete Time: 16:28 01/09 15:20 Order name: Magnesium; Complete Time: 16:28 01/09 15:20 Order name: NT PRO-BNP; Complete Time: 16:28 01/09 15:20 Order name: PT-INR; Complete Time: 16:28 01/09 15:20 Order name: Troponin (emerg Dept Use Only); Complete Time: 16:28 01/09 15:20 Order name: XRAY Chest (1 view); Complete Time: 17:32 01/09 15:20 Order name: Lipase; Complete Time: 16:28 01/09 16:50 Order name: Blood Culture Adult (2) 01/09 17:09 Order name: Procalcitonin; Complete Time: 12:58 01/09 17:09 Order name: Lactate; Complete Time: 18:16 01/09 15:20 Order name: EKG; Complete Time: 15:21 01/09 15:20 Order name: Cardiac monitoring; Complete Time: 16:04 01/09 15:20 Order name: EKG - Nurse/Tech; Complete Time: 16:04 01/09 15:20 Order name: IV Saline Lock; Complete Time: 16:04 01/09 15:20 Order name: Labs collected and sent; Complete Time: 16:04 01/09 15:20 Order name: O2 Per Protocol; Complete Time: 16:04 01/09 15:20 Order name: O2 Sat Monitoring; Complete Time: 16:04 01/09 16:50 Order name: Orthostatics; Complete Time: 17:04 Administered Medications: 16:00 Drug: Zofran 4 mg Route: IVP; Site: right wrist; hb 16:21 Follow up: Response: No adverse reaction; Nausea is decreased hb 16:10 Drug: NS 0.9% 1000 ml Route: IV; Rate: 1000 ml; Site: right wrist; hb 20:39 Follow up: IV Status: Completed infusion; IV Intake: 1000ml tl3 18:15 Drug: Clindamycin 600 mg Route: IVPB; Infused Over: 30 mins; Site: right wrist; hb 20:38 Follow up: IV Status: Completed infusion; IV Intake: 50ml tl3 Disposition: 18:36 Co-signature as Attending Physician, Ulisses Hinton MD I agree with the assessment and rn plan of care. Attestation: The patient's history, exam findings, diagnostics, and a summary of any interventions or procedures was reviewed in detail with Yamil QUIROS Pt accepted for transfer to [facility] for ECHO, V/Q scan, and further evaluation.. Disposition: 01/09/18 18:[address] [facility]. Diagnosis are Dehydration, Tachycardia, unspecified, Dyspnea, unspecified, Weakness. - Reason for transfer: Higher level of care. - Accepting physician is Dr. High. - Condition is Stable. - Problem is new. - Symptoms have improved. Signatures: Dispatcher [employer] [facility] Hermelinda Winters RN RN aj1 Ulisses Hinton MD MD rn Roszak, Josh, PA PA jr8 Jannet Vasquez RN RN hb Lowrey, Tammy RN RN tl3 Corrections: (The following items were deleted from the chart) 16:49 16:31 Chest For PE Angio+CT.RAD.BRZ ordered. EDMS EDMS 18:07 16:06 Eyes: Pupils equal round and reactive to light, extra-ocular motions intact. Lids jr8 and lashes normal. Conjunctiva and sclera are non-icteric and not injected. Cornea within normal limits. Periorbital areas with no swelling, redness, or edema. ENT: Nares patent. No nasal discharge, no septal abnormalities noted. Tympanic membranes are normal and external auditory canals are clear. Oropharynx with no redness, swelling, or masses, exudates, or evidence of obstruction, uvula midline. Mucous membranes moist. Neck: Trachea midline, no thyromegaly or masses palpated, and no cervical lymphadenopathy. Supple, full range of motion without nuchal rigidity, or vertebral point tenderness. No Meningismus. Respiratory: Lungs have equal breath sounds bilaterally, clear to auscultation and percussion. No rales, rhonchi or wheezes noted. No increased work of breathing, no retractions or nasal flaring. Abdomen/GI: Soft, non-tender, with normal bowel sounds. No distension or tympany. No guarding or rebound. No evidence of tenderness throughout. Back: No spinal tenderness. No costovertebral tenderness. Full range of motion. Skin: Warm, dry with normal turgor. Normal color with no rashes, no lesions MS/ Extremity: Pulses equal, no cyanosis. Neurovascular intact. Full, normal range of motion. Neuro: Awake and alert, GCS 15, oriented to person, place, time, and situation. Cranial nerves II-XII grossly intact. Motor strength 5/5 in all extremities. Sensory grossly intact. Cerebellar exam normal. Normal gait. jr8 21:14 18:39 01/09/2018 18:[address] [facility]. Diagnosis is Dehydration; tl3 Tachycardia, unspecified; Dyspnea, unspecified; Weakness. Reason for transfer: Higher level of care. Accepting physician is Dr. High. Condition is Stable. Problem is new. Symptoms have improved. rn
--- NOTE | 2018-01-09 22:17 | EKG ---
Test Date: 2018-01-09 Test Time: 15:41:15 Supervisor [employer]: AN[place]IETTA MEASUREMENT RESULTS: Intervals: Rate: 107 HI: 168 QRSD: 88 QT: 364 QTc: 485 [place]: P: 50 HI: 168 QRS: 87 T: 34 INTERPRETIVE STATEMENTS: Sinus tachycardia ST & T wave abnormality, consider anterior ischemia Abnormal ECG Compared to ECG 11/13/2017 21:52:01 Possible ischemia now present Sinus rhythm no longer present ST (T wave) deviation still present Electronically Signed On 01-09-18 22:16:40 SECURITY DIRECTOR by Rolan Aguila
== END 2018-01-09 21:14 | disposition short-term general hospital (02) ==
LOC: ER 14:59
DX: E86.0 Dehydration (principal); R00.0 Tachycardia, unspecified; R53.1 Weakness; I10 Essential (primary) hypertension; E78.5 Hyperlipidemia, unspecified; Z79.82 Long term (current) use of aspirin; Z88.0 Allergy status to penicillin; Z95.1 Presence of aortocoronary bypass graft; Z91.041 Radiographic dye allergy status
CPT/HCPCS: 36415; 71045; 80048; 80076; 83605; 83690; 83735; 83880; 84145; 84484; 85025; 85610; 87040; 93005; 96361; 96365; 96366; 96375; 99285; J2405; J7030

== ENCOUNTER 2018-01-14 14:43 | Emergency (ER) | payer BC ==
--- OUTSIDE RECORDS SUMMARY | 2018-01-14 14:45 | XMS REPORT | Clinical Summary ---
:1955 Author Organization [facility] Address [address] [place], [place] [address] [place] [address] Care Team Providers Name Role Phone Connor [...] Not on file Results Not on fileafter 01/13/2017 Insurance Payer Benefit Plan / Subscriber ID Type Phone Address Group BLUE CROSS/BLUE BCBS PPO POS EPO xxxxxxxxxxxx PPO [phone] [address] [place] [address] Advance Directives For more information, please contact:[address], [place] [phone] Code Status Date Activated Date Inactivated Comments Full Code 08/27/2015 10:05 PM 08/31/2015 1:59 PM This code status was determined by: Patient
--- NOTE | 2018-01-14 15:57 | EKG ---
Test Date: 2018-01-14 Test Time: 15:08:02 Processor Helper: MARLON MEASUREMENT RESULTS: Intervals: Rate: 117 NM: 164 QRSD: 86 QT: 328 QTc: 457 [place]: P: -5 NM: 164 QRS: -35 T: 7 INTERPRETIVE STATEMENTS: Sinus tachycardia Left axis deviation Abnormal ECG Compared to ECG 01/09/2018 15:41:15 Left-axis deviation now present ST (T wave) deviation no longer present Electronically Signed On 01-14-18 15:57:03 EMBOSSER OPERATOR by Rolan Aguila
--- NOTE | 2018-01-14 16:13 | ER ---
Nurse's Notes [facility] Name: Fred Hardy Age: 62 yrs Sex: Male : 1955 Arrival Date: 01/14/2018 Time: 14:44 Bed 5 Private MD: Willie Solano Diagnosis: Tachycardia, unspecified;Dyspnea, unspecified Presentation: 01/14 14:54 Presenting complaint: Patient states: was getting a stress test and did not exercise sv d/t his HR-150, sent here to the ER. Transition of care: patient was not received from another setting of care. Onset of symptoms was January 14, 2018. Care prior to arrival: None. 14:54 Method Of Arrival: Wheelchair sv 14:54 Acuity: JOSÉ MIGUEL 2 sv 15:15 Risk Assessment: Do you want to hurt yourself or someone else? Patient reports no hb desire to harm self or others. Initial Sepsis Screen: Does the patient meet any 2 criteria? HR > 90 bpm. Does the patient have a suspected source of infection? No. Patient's initial sepsis screen is negative. Historical: - Allergies: 14:55 IV contrast; sv 14:55 PENICILLINS; sv - Home Meds: 16:24 aspirin 81 mg Oral TbEC 1 tab once daily [Active]; buspirone 10 mg Oral tab 1 tab 2 hb times per day [Active]; Chantix Starting Month Box 0.5 mg (11)- 1 mg (42) Oral DsPk [Active]; clopidogrel 75 mg Oral tab 1 tab once daily [Active]; docusate sodium 100 mg Oral cap 1 cap 2 times per day [Active]; ferrous sulfate 325 mg (65 mg iron) Oral TbEC [Active]; furosemide 40 mg Oral tab 1 tab once daily [Active]; lisinopril 20 mg Oral tab 1 tab once daily [Active]; metoprolol tartrate 25 mg Oral tab 1 tab 2 times per day [Active]; pantoprazole 40 mg Oral TbEC 1 tab once daily [Active]; potassium chloride 20 mEq Oral TbER 1 tab once daily [Active]; Senokot 8.6 mg Oral tab 2 tabs once daily [Active]; simvastatin 20 mg Oral tab 1 tab once daily [Active]; zolpidem 10 mg Oral tab 1 tab once daily [Active]; - PMHx: 14:55 Hyperlipidemia; Hypertension; sv - PSHx: 14:55 quadruple bypass; Hernia repair; sv - Immunization history:: Adult Immunizations up to date. - Social history:: Smoking status: Patient/guardian denies using tobacco. - Ebola Screening: : No symptoms or risks identified at this time. - Family history:: not pertinent. Screenin:50 Abuse screen: Denies threats or abuse. Denies injuries from another. Nutritional hb screening: No deficits noted. Tuberculosis screening: No symptoms or risk factors identified. Fall Risk None identified. Assessment: 15:15 General: Appears in no apparent distress. Behavior is calm, cooperative. Pain: Denies hb pain. Neuro: Level of Consciousness is awake, alert, obeys commands, Oriented to person, place, time, situation. Cardiovascular: Heart tones S1 S2 present Capillary refill < 3 seconds Patient's skin is warm and dry. Rhythm is tachy. Respiratory: Airway is patent Trachea midline Respiratory effort is even, unlabored, Respiratory pattern is regular, symmetrical, Breath sounds are clear bilaterally. GI: No signs and/or symptoms were reported involving the gastrointestinal system. : No signs and/or symptoms were reported regarding the genitourinary system. EENT: No signs and/or symptoms were reported regarding the EENT system. Derm: No signs and/or symptoms reported regarding the dermatologic system. Skin is pink, warm \T\ dry. Musculoskeletal: No signs and/or symptoms reported regarding the musculoskeletal system. 16:00 Reassessment: Patient appears in no apparent distress at this time. Patient and/or hb family updated on plan of care and expected duration. Pain level reassessed. Patient is alert, oriented x 3, equal unlabored respirations, skin warm/dry/pink. 17:00 Reassessment: Patient appears in no apparent distress at this time. Patient and/or hb family updated on plan of care and expected duration. Pain level reassessed. Patient is alert, oriented x 3, equal unlabored respirations, skin warm/dry/pink. Vital Signs: 14:55 BP 150 / 113; Pulse 124; Resp 24; Temp 98.7; Pain 0/10; sv 15:45 BP 134 / 83; Pulse 121; Resp 20; Pulse Ox 96% on R/A; Pain 0/10; hb 16:45 BP 128 / 88; Pulse 106; Resp 16; Pulse Ox 95% on R/A; Pain 0/10; hb 16:57 Weight 90 kg (R); hb 17:14 BP 142 / 95; Pulse 103; Resp 15; Pulse Ox 97% on R/A; hb 18:02 BP 133 / 92; Pulse 92; Resp 16; Pulse Ox 91% ; bp ED Course: 14:44 Patient arrived in ED. sb2 14:45 Willie Solano MD is Private Physician. sb2 14:47 Nilay Pineda, IZABELLA is Primary Nurse. bp 14:55 Triage completed. sv 14:56 Gilmar Miranda MD is Attending Physician. samantha 14:56 Arm band placed on. sv 15:25 EKG done, by orthotics technician. tc 15:30 Patient has correct armband on for positive identification. Placed in gown. Bed in low hb position. Call light in reach. Side rails up X 1. 16:05 Inserted saline lock: 22 gauge in right antecubital area, using aseptic technique. hb Blood collected. 16:17 X-ray completed. Portable x-ray completed in exam room. Patient tolerated procedure jb2 well. 16:18 XRAY Chest (1 view) In Process Unspecified. EDMS 16:54 Urine collected: clean catch specimen, zan colored. dh3 18:11 No provider procedures requiring assistance completed. Patient transferred, IV remains ss in place. Patient maintains SpO2 saturation greater than 95% on room air. Administered Medications: 16:20 Drug: NS 0.9% 500 ml Route: IV; Rate: bolus; Site: right antecubital; hb 17:03 Follow up: Response: No adverse reaction; IV Status: Completed infusion hb 17:03 Drug: NS 0.9% 1000 ml Route: IV; Rate: 125 ml/hr; Site: right antecubital; hb 17:03 Drug: Lovenox 1 mg/kg Route: Sub-Q; Site: abdomen; hb 17:04 Drug: Lopressor 25 mg Route: PO; hb Outcome: 16:12 ER care complete, transfer ordered by . samantha 18:11 Transferred by ground EMS to [facility], Transfer form ss completed. X-rays sent w/ patient. 18:11 Condition: good 18:11 Instructed on the need for transfer. 18:12 Patient left the ED. ss Signatures: Dispatcher [employer] EDNicci Prater RN RN Gilmar Zambrano MD MD cha Buechter, Yovani jb2 Surekha Ureña, IZABELLA PAREKH Layla [place], [facility] Jannet Vasquez RN RN Nikolai, Tila [facility] Nilay Pineda RN RN bp Boles, Saumya sb2
--- NOTE | 2018-01-14 16:14 | EDPHYS ---
Physician Documentation [facility] Name: Fred Hardy Age: 62 yrs Sex: Male : 1955 Arrival Date: 01/14/2018 Time: 14:44 Bed 5 Private MD: Willie Solano ED Physician Gilmar Miranda HPI: 01/14 15:57 This 62 yrs old Male presents to ER via Wheelchair with complaints of samantha Abnormal EKG. 15:57 The patient presents with a history of heart racing. Context: The symptoms occur at samantha rest. Onset: The symptoms/episode began/occurred 2 day(s) ago. Duration: The patient or guardian reports a single episode, that is still ongoing. Modifying factors: The symptoms are aggravated by light activity, The symptoms are alleviated by nothing. Associated signs and symptoms: Pertinent positives: lightheadedness. Severity of symptoms: At their worst the symptoms were mild in the emergency department the symptoms are unchanged. The patient has not experienced similar symptoms in the past. Historical: - Allergies: 14:55 IV contrast; sv 14:55 PENICILLINS; sv - Home Meds: 16:24 aspirin 81 mg Oral TbEC 1 tab once daily [Active]; buspirone 10 mg Oral tab 1 tab 2 hb times per day [Active]; Chantix Starting Month Box 0.5 mg (11)- 1 mg (42) Oral DsPk [Active]; clopidogrel 75 mg Oral tab 1 tab once daily [Active]; docusate sodium 100 mg Oral cap 1 cap 2 times per day [Active]; ferrous sulfate 325 mg (65 mg iron) Oral TbEC [Active]; furosemide 40 mg Oral tab 1 tab once daily [Active]; lisinopril 20 mg Oral tab 1 tab once daily [Active]; metoprolol tartrate 25 mg Oral tab 1 tab 2 times per day [Active]; pantoprazole 40 mg Oral TbEC 1 tab once daily [Active]; potassium chloride 20 mEq Oral TbER 1 tab once daily [Active]; Senokot 8.6 mg Oral tab 2 tabs once daily [Active]; simvastatin 20 mg Oral tab 1 tab once daily [Active]; zolpidem 10 mg Oral tab 1 tab once daily [Active]; - PMHx: 14:55 Hyperlipidemia; Hypertension; sv - PSHx: 14:55 quadruple bypass; Hernia repair; sv - Immunization history:: Adult Immunizations up to date. - Social history:: Smoking status: Patient/guardian denies using tobacco. - Ebola Screening: : No symptoms or risks identified at this time. - Family history:: not pertinent. ROS: 15:57 Constitutional: Negative for fever, chills, and weight loss, Eyes: Negative for injury, samantha pain, redness, and discharge, ENT: Negative for injury, pain, and discharge, Neck: Negative for injury, pain, and swelling, Abdomen/GI: Negative for abdominal pain, nausea, vomiting, diarrhea, and constipation, Back: Negative for injury and pain, : Negative for injury, bleeding, discharge, and swelling, MS/Extremity: Negative for injury and deformity, Skin: Negative for injury, rash, and discoloration, Neuro: Negative for headache, weakness, numbness, tingling, and seizure, Psych: Negative for depression, anxiety, suicide ideation, homicidal ideation, and hallucinations, Allergy/Immunology: Negative for hives, rash, and allergies, Endocrine: Negative for neck swelling, polydipsia, polyuria, polyphagia, and marked weight changes, Hematologic/Lymphatic: Negative for swollen nodes, abnormal bleeding, and unusual bruising. 15:57 Cardiovascular: Positive for palpitations. 15:57 Respiratory: Positive for shortness of breath, at rest. Exam: 15:57 Constitutional: This is a well developed, well nourished patient who is awake, alert, samantha and in no acute distress. Head/Face: Normocephalic, atraumatic. Eyes: Pupils equal round and reactive to light, extra-ocular motions intact. Lids and lashes normal. Conjunctiva and sclera are non-icteric and not injected. Cornea within normal limits. Periorbital areas with no swelling, redness, or edema. ENT: Nares patent. No nasal discharge, no septal abnormalities noted. Tympanic membranes are normal and external auditory canals are clear. Oropharynx with no redness, swelling, or masses, exudates, or evidence of obstruction, uvula midline. Mucous membranes moist. Neck: Trachea midline, no thyromegaly or masses palpated, and no cervical lymphadenopathy. Supple, full range of motion without nuchal rigidity, or vertebral point tenderness. No Meningismus. Chest/axilla: Normal chest wall appearance and motion. Nontender with no deformity. No lesions are appreciated. Respiratory: Lungs have equal breath sounds bilaterally, clear to auscultation and percussion. No rales, rhonchi or wheezes noted. No increased work of breathing, no retractions or nasal flaring. Abdomen/GI: Soft, non-tender, with normal bowel sounds. No distension or tympany. No guarding or rebound. No evidence of tenderness throughout. Back: No spinal tenderness. No costovertebral tenderness. Full range of motion. Male : Normal genitalia with no discharge or lesions. Skin: Warm, dry with normal turgor. Normal color with no rashes, no lesions, and no evidence of cellulitis. MS/ Extremity: Pulses equal, no cyanosis. Neurovascular intact. Full, normal range of motion. Neuro: Awake and alert, GCS 15, oriented to person, place, time, and situation. Cranial nerves II-XII grossly intact. Motor strength 5/5 in all extremities. Sensory grossly intact. Cerebellar exam normal. Normal gait. Psych: Awake, alert, with orientation to person, place and time. Behavior, mood, and affect are within normal limits. 15:57 Cardiovascular: Rate: tachycardic, Rhythm: regular, Pulses: no pulse deficits are appreciated, Heart sounds: normal, Edema: is not appreciated, JVD: is not appreciated. Vital Signs: 14:55 BP 150 / 113; Pulse 124; Resp 24; Temp 98.7; Pain 0/10; sv 15:45 BP 134 / 83; Pulse 121; Resp 20; Pulse Ox 96% on R/A; Pain 0/10; hb 16:45 BP 128 / 88; Pulse 106; Resp 16; Pulse Ox 95% on R/A; Pain 0/10; hb 16:57 Weight 90 kg (R); hb 17:14 BP 142 / 95; Pulse 103; Resp 15; Pulse Ox 97% on R/A; hb 18:02 BP 133 / 92; Pulse 92; Resp 16; Pulse Ox 91% ; bp MDM: 14:57 Patient medically screened. [facility] 15:59 Data reviewed: vital signs, nurses notes, lab test result(s), EKG, radiologic studies, samantha plain films. 01/14 15:56 Order name: Basic Metabolic Panel; Complete Time: 16:53 [facility] 01/14 15:56 Order name: CBC with Diff; Complete Time: 16:36 [facility] 01/14 15:56 Order name: LFT's; Complete Time: 16:53 [facility] 01/14 15:56 Order name: Magnesium; Complete Time: 16:53 [facility] 01/14 15:56 Order name: NT PRO-BNP; Complete Time: 16:53 [facility] 01/14 15:56 Order name: PT-INR; Complete Time: 17:17 [facility] 01/14 15:56 Order name: Troponin (emerg Dept Use Only); Complete Time: 16:53 [facility] 01/14 15:56 Order name: XRAY Chest (1 view); Complete Time: 16:43 [facility] 01/14 15:56 Order name: Urine Culture [facility] 01/14 15:56 Order name: D-Dimer; Complete Time: 17:17 [facility] 01/14 14:56 Order name: EKG; Complete Time: 15:04 01/14 14:56 Order name: EKG - Nurse/Tech; Complete Time: 15:31 sv 01/14 15:56 Order name: Cardiac monitoring; Complete Time: 16:04 [facility] 01/14 15:56 Order name: IV Saline Lock; Complete Time: 16:04 [facility] 01/14 15:56 Order name: Labs collected and sent; Complete Time: 16:04 [facility] 01/14 15:56 Order name: O2 Per Protocol; Complete Time: 16:04 [facility] 01/14 15:56 Order name: O2 Sat Monitoring; Complete Time: 16:05 [facility] 01/14 15:56 Order name: Urine Dipstick-Ancillary (obtain specimen); Complete Time: 16:55 [facility] Administered Medications: 16:20 Drug: NS 0.9% 500 ml Route: IV; Rate: bolus; Site: right antecubital; hb 17:03 Follow up: Response: No adverse reaction; IV Status: Completed infusion hb 17:03 Drug: NS 0.9% 1000 ml Route: IV; Rate: 125 ml/hr; Site: right antecubital; hb 17:03 Drug: Lovenox 1 mg/kg Route: Sub-Q; Site: abdomen; hb 17:04 Drug: Lopressor 25 mg Route: PO; hb Disposition: 01/14/18 16:12 Transfer ordered to [facility]. Diagnosis are Tachycardia, unspecified, Dyspnea, unspecified. - Reason for transfer: Higher level of care. - Accepting physician is to [facility]. - Condition is Fair. - Problem is new. - Symptoms have improved. Signatures: Dispatcher [employer] Nicci Brizuela RN RN Gilmar Zambrano MD MD cha Smirch, Shelby, RN RN ss Baxter, Heather, RN RN Corrections: (The following items were deleted from the chart) 18:12 16:12 01/14/2018 16:12 Transfer ordered to [facility]. Diagnosis is Tachycardia, ss unspecified; Dyspnea, unspecified. Reason for transfer: Higher level of care. Accepting physician is to [facility]. Condition is Fair. Problem is new. Symptoms have improved. samantha
[2018-01-14] MEDS ORDERED: NA CHLORIDE 0.9% 1,000 ML ONE (16:21)
[2018-01-14 16:23] LABS: Absolute Monocytes 0.6 K/uL (0.1-1.3); Absolute Neutrophil 6.7 K/uL (1.8-8.0); Basophils % 1.1 % (0-1.3); Eosinophils % 0.8 % (0-4.4); Hematocrit 36.6 % (39.6-49.0); Lymphocytes % 11.7 % (15.3-44.8); MCH 27.3 pg (27.0-35.0); MCV 83.1 fL (80-100); MPV 7.9 fL (7.6-11.3); Monocytes % 6.7 % (3.3-12.3); RBC Red Blood Cell Count 4.41 M/uL (4.33-5.43)
[2018-01-14 16:35] LABS: Protime INR 1.24
--- NOTE | 2018-01-14 16:37 | RAD REPORT ---
EXAM DESCRIPTION: RAD - Chest Single View - 01/14/2018 4:21 pm CLINICAL HISTORY: Chest pain COMPARISON: January 09 TECHNIQUE: AP portable chest image was obtained 1606 hours . FINDINGS: Lungs are clear. Heart and vasculature are normal. No measurable pleural effusion and no p neumothorax. No acute bony abnormality seen. No acute aortic findings suspected. IMPRESSION: No acute cardiopulmonary process. No significant change from comparison.
[2018-01-14 16:51] LABS: ALT/SGPT 14 U/L (12-78); AST/SGOT 10 U/L (15-37); Albumin 2.9 g/dL (3.4-5.0); Alkaline Phosphatase 101 U/L (45-117); BUN Blood Urea Nitrogen 12 mg/dL (7-18); Bicarbonate 26 mmol/L (21-32); Bilirubin Direct 0.1 mg/dL (0-0.2); Bilirubin Total 0.3 mg/dL (0.2-1.0); Glucose Level 90 mg/dL (74-106); Magnesium 2.2 mg/dL (1.8-2.4); NT PRO-BNP 311 pg/mL (<125); Protein, Total 8.5 g/dL (6.4-8.2); Sodium Level 137 mmol/L (136-145); Troponin (Emerg Dept Use Only) < 0.02 ng/mL (0.0-0.045)
[2018-01-14] MEDS ORDERED: METOPROLOL TAR 25 MG TAB ONE (17:08)
[2018-01-14] MEDS ORDERED: ENOXAPARIN 100 MG/ML SYR SQ ONE (17:08)
== END 2018-01-14 18:12 | disposition short-term general hospital (02) ==
LOC: ER 14:43
DX: R00.0 Tachycardia, unspecified (principal); R06.00 Dyspnea, unspecified; R94.31 Abnormal electrocardiogram [ECG] [EKG]; E78.5 Hyperlipidemia, unspecified; I10 Essential (primary) hypertension; Z79.82 Long term (current) use of aspirin; Z79.899 Other long term (current) drug therapy; Z95.1 Presence of aortocoronary bypass graft
CPT/HCPCS: 36415; 71045; 80048; 80076; 83735; 83880; 84484; 85025; 85379; 85610; 87086; 87088; 93005; 96360; 96372; 99285; J1650; J7030

== ENCOUNTER 2018-08-15 15:57 | Emergency (ER) | payer BC ==
--- OUTSIDE RECORDS SUMMARY | 2018-08-15 16:00 | XMS REPORT | Clinical Summary ---
:1955 Author Organization [facility] Address [address] [place], [place] [address] [place] [address] Care Team Providers Name Role Phone Connor [...] Not on file Results Not on fileafter 08/14/2017 Insurance Payer Benefit Plan / Subscriber ID Type Phone Address Group BLUE CROSS/BLUE BCBS PPO POS EPO xxxxxxxxxxxx PPO [phone] [address] [place] [address] Advance Directives For more information, please contact:[address], [place] [phone] Code Status Date Activated Date Inactivated Comments Full Code 08/27/2015 10:05 PM 08/31/2015 1:59 PM This code status was determined by: Patient
--- OUTSIDE RECORDS SUMMARY | 2018-08-15 16:00 | XMS REPORT ---
:1955 [facility] Address [address] [place] [address] Care Team Providers Name Role Phone Unavailable Unavailable Unavailable Problems This patient has no known problems. Allergies, Adverse Reactions, Alerts This patient has no known allergies or adverse reactions. Medications This patient has no known medications. Encounters Start End Encounter Admission Attending Care Care Encounter Date/Time Date/Time Type Type Clinicians Facility Department ID 2018-06-02 Inpatient E [facility] MED [id number] 16:35:00 2018-06-21 2018-06-21 Outpatient [facility] [id number] 10:57:00 10:57:00
--- OUTSIDE RECORDS SUMMARY | 2018-08-15 16:00 | XMS REPORT | Continuity of Care Document ---
:1955 Author Organization Interface Problems Problem Status Onset Date Classification Date Comments Source Reported Medications Medication Details Route Status Patient Ordering Order Source Instructions Provider Date Allergies, Adverse Reactions, Alerts Substance Category Reaction Severity Reaction Status Date Comments Source type Reported Immunizations Immunization Date Given Site Status Last Updated Comments Source Results Order Results Value Reference Date Interpretation Comments Source Name Range Vital Signs Vital Sign Value Date Comments Source Encounters Location Location Encounter Encounter Reason Attending ADM DC Status Source Details Type Number For Provider Date Date Visit Outpatient [id number] SNOW 02/13 [facility] Outpatient [id number] SNOW 04/29 [facility] Outpatient [id number] SNOW 05/08 [facility] Procedures Procedure Code Date Perfomer Comments Source
[2018-08-15 16:33] LABS: Absolute Lymphocytes (CBC) 1.1 K/uL (0.7-4.9); Absolute Monocytes 0.5 K/uL (0.1-1.3); Basophils % 2.9 % (0-1.3); Eosinophils % 5.1 % (0-4.4); Hematocrit 32.4 % (39.6-49.0); MPV 8.1 fL (7.6-11.3); RBC Red Blood Cell Count 4.17 M/uL (4.33-5.43)
[2018-08-15 16:38] LABS: Protime INR 1.01
--- NOTE | 2018-08-15 16:48 | RAD REPORT ---
EXAM DESCRIPTION: RAD - Chest Single View - 08/15/2018 4:42 pm CLINICAL HISTORY: ABDOMINAL DISTENTION Chest pain. COMPARISON: Chest Single View dated 01/14/2018; Chest Single View dated 01/09/2018; Chest Single View dated 11/13/2017; Chest Single View dated 08/27/2015 FINDINGS: Portable technique limits examination quality. The lungs are grossly clear. The heart is normal in size. No displaced fractures. IMPRESSION: No acute intrathoracic process suspected.
[2018-08-15 16:52] LABS: ALT/SGPT 28 U/L (12-78); AST/SGOT 42 U/L (15-37); Albumin 3.1 g/dL (3.4-5.0); Alkaline Phosphatase 140 U/L (45-117); BUN Blood Urea Nitrogen 20 mg/dL (7-18); Bicarbonate 25 mmol/L (21-32); Bilirubin Direct 0.1 mg/dL (0-0.2); Bilirubin Total 0.3 mg/dL (0.2-1.0); Glucose Level 90 mg/dL (74-106); Magnesium 2.1 mg/dL (1.8-2.4); NT PRO-BNP 137 pg/mL (<125); Potassium 3.9 mmol/L (3.5-5.1); Protein, Total 7.1 g/dL (6.4-8.2); Sodium Level 140 mmol/L (136-145); Troponin (Emerg Dept Use Only) < 0.02 ng/mL (0.0-0.045)
--- NOTE | 2018-08-15 16:56 | RAD REPORT ---
EXAM DESCRIPTION: CT - Stone Protocol - 08/15/2018 4:49 pm CLINICAL HISTORY: Flank pain. ABD PAIN COMPARISON: No comparisons TECHNIQUE: Axial images were obtained without oral or IV contrast. Lack of contrast limits solid org an and vascular assessment. The [id number] spans the entirety of the system partially obscuring uppermost abdomen and lung bases. Coronal reformatted images were obtained and reviewed. All CT scans are performed using dose optimization technique as appropriate and may include automated exposure control or mA/KV adjustment according to patient size. FINDINGS: The lower lung sommers are clear. Small stones are present in the gallbladder. Imaged portions of the liver and spleen show no suspicious findings on non-contrast imaging. The panc reas and adrenal glands are normal. No pathologic lymphadenopathy in the abdomen or pelvis. No urinary tract stones or obstructive uropathy. No bowel obstruction, free air, free fluid or abscess. Normal appendix noted.Prominent stool in the c olon. Mild to moderate lower lumbar spondylosis. IMPRESSION: No urinary tract stones or obstructive uropathy. Cholelithiasis.
[2018-08-15] MEDS ORDERED: FENTANYL CITR 100 MCG/2 ML ONE ×2 (17:09→19:12)
[2018-08-15] MEDS ORDERED: ONDANSETRON 4 MG/2 ML VIAL ONE (17:09)
--- NOTE | 2018-08-15 18:29 | RAD REPORT ---
EXAM DESCRIPTION: US - Abdomen Exam Limited - 08/15/2018 6:22 pm CLINICAL HISTORY: ABD PAIN COMPARISON: <Comparisons> FINDINGS: The gallbladder demonstrates significant contraction which limits the quality of the study . A 7 mm stone is likely present in the gallbladder neck. No pericholecystic fluid or gallbladder wal l thickening. The common bile duct is normal measuring 3 mm. The liver demonstrates no findings of intrahepatic biliary dilatation. IMPRESSION: 7 mm stone is suspected in the gallbladder neck. The gallbladder is significantly contr acted, however, limiting full assessment.
--- NOTE | 2018-08-15 18:39 | ER ---
Nurse's Notes [facility] Name: Fred Hardy Age: 62 yrs Sex: Male : 1955 Arrival Date: 08/15/2018 Time: 15:59 Bed 13 Private MD: Willie Solano Diagnosis: Cholelithiasis;Cholecystitis Presentation: 08/15 15:59 Presenting complaint: EMS states: ABD pain, upper and lower, reports pain as sharp and sg stabbing but non radiating at this time, reports a pain level 10/10 that began this morning worsening prior to EMS arrival, denies Fever/Diarrhea/Vomiting, reports nausea as well, denies CP. Transition of care: patient was not received from another setting of care. Onset of symptoms was August 15, 2018. Risk Assessment: Do you want to hurt yourself or someone else? Patient reports no desire to harm self or others. Initial Sepsis Screen: Does the patient meet any 2 criteria? No. Patient's initial sepsis screen is negative. Does the patient have a suspected source of infection? No. Patient's initial sepsis screen is negative. Care prior to arrival: IV initiated. 20 GA, in the left antecubital area. 15:59 Method Of Arrival: EMS: [facility] sg 15:59 Acuity: JOSÉ MIGUEL 3 sg Historical: - Allergies: 16:01 IV contrast; sg 16:01 PENICILLINS; sg - Home Meds: 17:13 aspirin 81 mg Oral TbEC 1 tab once daily [Active]; buspirone 10 mg Oral tab 1 tab 2 sg times per day [Active]; simvastatin 20 mg Oral tab 1 tab once daily [Active]; trazodone Oral [Active]; Fluoxetine Oral [Active]; Lisinopril Oral [Active]; - PMHx: 16:01 Hyperlipidemia; Hypertension; sg - PSHx: 16:01 quadruple bypass; Hernia repair; sg - Immunization history:: Adult Immunizations not up to date. - Social history:: Smoking status: Patient uses tobacco products. - Ebola Screening: : Patient negative for fever greater than or equal to 101.5 degrees Fahrenheit, and additional compatible Ebola Virus Disease symptoms Patient denies exposure to infectious person Patient denies travel to an Ebola-affected area in the 21 days before illness onset No symptoms or risks identified at this time. Screenin:06 Abuse screen: Denies threats or abuse. Denies injuries from another. Nutritional sg screening: No deficits noted. Tuberculosis screening: No symptoms or risk factors identified. Never had TB. Fall Risk None identified. Assessment: 16:00 General: Appears in no apparent distress. well groomed, well developed, well nourished, sg Behavior is calm, cooperative, appropriate for age. Pain: Complains of pain in abdomen Quality of pain is described as aching, tender. Neuro: Level of Consciousness is awake, alert, obeys commands, Oriented to person, place, time, situation, Plate Worker Helper are equal bilaterally Moves all extremities. Full function Gait is steady, Speech is normal, Facial symmetry appears normal, Pupils are PERRLA, Denies weakness blurred vision dizziness, numbness headache. Cardiovascular: Capillary refill is brisk in bilateral fingers Patient's skin is warm and dry. Chest pain is denied. Respiratory: Airway is patent Respiratory effort is even, unlabored, Respiratory pattern is regular, symmetrical. GI: Bowel sounds present X 4 quads. Abd is soft X 4 quads Abdomen is tender to palpation in right upper quadrant, left upper quadrant, right lower quadrant and left lower quadrant. : No signs and/or symptoms were reported regarding the genitourinary system. EENT: No signs and/or symptoms were reported regarding the EENT system. Derm: Skin is pink, warm \T\ dry. Musculoskeletal: No signs and/or symptoms reported regarding the musculoskeletal system. 16:46 Reassessment: pt transported back from CT scan, reports having severe abd pain, sg Demetrius ELIGIBILITY ANALYST notified, awaiting new orders at this time. 18:25 Reassessment: Patient appears in no apparent distress at this time. Patient and/or sg family updated on plan of care and expected duration. Pain level reassessed. Patient is alert, oriented x 3, equal unlabored respirations, skin warm/dry/pink. awaiting radiology results at this time, pt stated understanding, no new orders received will continue to monitor. Vital Signs: 16:15 BP 119 / 76; Pulse 77; Resp 18; Temp 97.2; Pulse Ox 98% on R/A; Pain 10/10; sg 17:02 BP 112 / 72; Pulse 75; Resp 17; Pulse Ox 99% on R/A; Pain 10/10; sg 18:02 BP 112 / 70; Pulse 72; Resp 17; Pulse Ox 99% on R/A; Pain 0/10; sg 19:05 BP 110 / 70; Pulse 77; Resp 17 S; Pulse Ox 98% on R/A; Pain 3/10; sg [place] Coma Score: 18:02 Eye Response: spontaneous(4). Verbal Response: oriented(5). Motor Response: obeys sg commands(6). Total: 15. ED Course: 15:59 Patient arrived in ED. sg 15:59 Willie Solano MD is Private Physician. sg 16:00 Triage completed. sg 16:00 Arm band placed on. sg 16:00 Patient has correct armband on for positive identification. Placed in gown. Bed in low sg position. Side rails up X2. monitoring specialist on. Pulse ox on. NIBP on. Warm blanket given. Pillow given. Verbal reassurance given. Head of bed elevated. 16:01 Mila Saini FNP-C [facility]. snw 16:01 Gilmar Miranda MD is Attending Physician. snw 16:01 Tien Fitch RN is Primary Nurse. sg 16:25 Initial lab(s) drawn, by nv, sent to lab. Maintain EMS IV. Dressing intact. Site clean sg \T\ dry. Gauge \T\ site: 20 G LAC. 16:44 XRAY Chest (1 view) In Process Unspecified. EDMS 16:50 CT Stone Protocol In Process Unspecified. EDMS 17:00 Rectal exam and occult blood testing, negative for occult blood at this time per ERP sg S.Parveen ERICKSON. 18:21 Abdomen Exam Limited In Process Unspecified. EDMS 19:10 Patient transferred, IV remains in place. intact, bleeding controlled, No sg redness/swelling at site. Pressure dressing applied. Administered Medications: 17:01 Drug: fentaNYL (PF) 50 mcg Route: IVP; Site: left antecubital; sg 19:02 Drug: fentaNYL (PF) 50 mcg Route: IVP; Site: left antecubital; sg Outcome: 18:38 ER care complete, transfer ordered by . snw 18:40 Transferred Note: report called to IZABELLA Castillo sg 18:40 Condition: stable 18:40 Instructed on the need for transfer. 19:08 Patient left the ED. sg Signatures: Dispatcher [employer] Tien Denise, RN RN sg Mila Saini, ELIGIBILITY ANALYST-C ELIGIBILITY ANALYST-Csnw
--- NOTE | 2018-08-15 18:39 | EDPHYS ---
Physician Documentation [facility] Name: Fred Hardy Age: 62 yrs Sex: Male : 1955 Arrival Date: 08/15/2018 Time: 15:59 Bed 13 Private MD: Willie Solano ED Physician Gilmar Miranda HPI: 08/15 17:43 This 62 yrs old Male presents to ER via EMS with complaints of Abd Pain > 50 snw y/o. 17:43 The patient presents with abdominal pain in the upper abdomen. Onset: The snw symptoms/episode began/occurred suddenly, today, and became worse and became persistent. The symptoms do not radiate. Associated signs and symptoms: Pertinent positives: nausea. The symptoms are described as constant, shooting. Severity of pain: At its worst the pain was severe in the emergency department the pain is unchanged. The patient has not experienced similar symptoms in the past. Pt had quadruple bypass 7 mo ago, area became infected. Multiple surgeries, long-term antibiotics, 90# wt loss. Pt seeing ID MD at [facility]. Dr. Nghia Oneal.. Historical: - Allergies: 16:01 IV contrast; sg 16:01 PENICILLINS; sg - Home Meds: 17:13 aspirin 81 mg Oral TbEC 1 tab once daily [Active]; buspirone 10 mg Oral tab 1 tab 2 sg times per day [Active]; simvastatin 20 mg Oral tab 1 tab once daily [Active]; trazodone Oral [Active]; Fluoxetine Oral [Active]; Lisinopril Oral [Active]; - PMHx: 16:01 Hyperlipidemia; Hypertension; sg - PSHx: 16:01 quadruple bypass; Hernia repair; sg - Immunization history:: Adult Immunizations not up to date. - Social history:: Smoking status: Patient uses tobacco products. - Ebola Screening: : Patient negative for fever greater than or equal to 101.5 degrees Fahrenheit, and additional compatible Ebola Virus Disease symptoms Patient denies exposure to infectious person Patient denies travel to an Ebola-affected area in the 21 days before illness onset No symptoms or risks identified at this time. ROS: 17:45 Constitutional: Negative for fever, chills, and weight loss, Eyes: Negative for injury, snw pain, redness, and discharge, ENT: Negative for injury, pain, and discharge, Neck: Negative for injury, pain, and swelling, Cardiovascular: Negative for chest pain, palpitations, and edema, Respiratory: Negative for shortness of breath, cough, wheezing, and pleuritic chest pain, Back: Negative for injury and pain, : Negative for injury, bleeding, discharge, and swelling, MS/Extremity: Negative for injury and deformity, Skin: Negative for injury, rash, and discoloration, Neuro: Negative for headache, weakness, numbness, tingling, and seizure. 17:45 Abdomen/GI: Positive for abdominal pain, nausea, of the epigastric area and right upper quadrant. Exam: 17:41 Head/Face: Normocephalic, atraumatic. Eyes: Pupils equal round and reactive to light, snw extra-ocular motions intact. Lids and lashes normal. Conjunctiva and sclera are non-icteric and not injected. Cornea within normal limits. Periorbital areas with no swelling, redness, or edema. ENT: Nares patent. No nasal discharge, no septal abnormalities noted. Tympanic membranes are normal and external auditory canals are clear. Oropharynx with no redness, swelling, or masses, exudates, or evidence of obstruction, uvula midline. Mucous membranes moist. Neck: Trachea midline, no thyromegaly or masses palpated, and no cervical lymphadenopathy. Supple, full range of motion without nuchal rigidity, or vertebral point tenderness. No Meningismus. Chest/axilla: Normal chest wall appearance and motion. Nontender with no deformity. No lesions are appreciated. + midline chest incision and drain scars. No erythema, no evidence of infection Cardiovascular: Regular rate and rhythm with a normal S1 and S2. No gallops, murmurs, or rubs. Normal PMI, no JVD. No pulse deficits. Respiratory: Lungs have equal breath sounds bilaterally, clear to auscultation and percussion. No rales, rhonchi or wheezes noted. No increased work of breathing, no retractions or nasal flaring. Back: No spinal tenderness. No costovertebral tenderness. Full range of motion. Skin: Warm, dry with normal turgor. Normal color with no rashes, no lesions, and no evidence of cellulitis. MS/ Extremity: Pulses equal, no cyanosis. Neurovascular intact. Full, normal range of motion. Neuro: Awake and alert, GCS 15, oriented to person, place, time, and situation. Cranial nerves II-XII grossly intact. Motor strength 5/5 in all extremities. Sensory grossly intact. Cerebellar exam normal. Normal gait. Psych: Awake, alert, with orientation to person, place and time. Behavior, mood, and affect are within normal limits. 17:41 Constitutional: The patient appears alert, awake, anxious. 17:41 Abdomen/GI: Inspection: abdomen appears normal, Bowel sounds: normal, Palpation: moderate abdominal tenderness, in the epigastric area and right upper quadrant, Rectal exam: is unremarkable, Prostate: normal, rectal tone normal, Stool: guaiac negative, hemorrhoid(s), are not appreciated, the exam is chaperoned by the nurse. Vital Signs: 16:15 BP 119 / 76; Pulse 77; Resp 18; Temp 97.2; Pulse Ox 98% on R/A; Pain 10/10; sg 17:02 BP 112 / 72; Pulse 75; Resp 17; Pulse Ox 99% on R/A; Pain 10/10; sg 18:02 BP 112 / 70; Pulse 72; Resp 17; Pulse Ox 99% on R/A; Pain 0/10; sg 19:05 BP 110 / 70; Pulse 77; Resp 17 S; Pulse Ox 98% on R/A; Pain 3/10; sg [place] Coma Score: 18:02 Eye Response: spontaneous(4). Verbal Response: oriented(5). Motor Response: obeys sg commands(6). Total: 15. MDM: 16:05 Patient medically screened. snw 17:30 Data reviewed: vital signs, nurses notes. Data interpreted: Pulse oximetry: on room air snw is 99 %. Interpretation: normal. Counseling: I had a detailed discussion with the patient and/or guardian regarding: the historical points, exam findings, and any diagnostic results supporting the discharge/admit diagnosis, lab results, radiology results, the need to transfer to another facility, pt request. Physician consultation: Dr. Nghia Oneal was called at 17:31, was contacted at 17:31, regarding consult, patient's condition, Dr. Oneal is Mr. Hardy's ID MD. 18:36 Physician consultation: Dr. Gladys Land was called at 18:30, was contacted at 18:30, snw regarding regarding transfer, to [facility]. Dr. aLnd kindly accepts pt in transfer as he refuses care at any other facility. 08/15 16:06 Order name: Basic Metabolic Panel; Complete Time: 17:10 snw 08/15 16:06 Order name: CBC with Diff; Complete Time: 16:49 snw 08/15 16:06 Order name: LFT's; Complete Time: 17:10 snw 08/15 16:06 Order name: Magnesium; Complete Time: 17:10 snw 08/15 16:06 Order name: NT PRO-BNP; Complete Time: 17:10 snw 08/15 16:06 Order name: PT-INR; Complete Time: 16:49 snw 08/15 16:06 Order name: Troponin (emerg Dept Use Only); Complete Time: 17:10 snw 08/15 16:06 Order name: XRAY Chest (1 view); Complete Time: 16:50 snw 08/15 16:06 Order name: CT Stone Protocol; Complete Time: 17:10 snw 08/15 17:10 Order name: Guiac; Complete Time: 18:11 snw 08/15 17:45 Order name: Abdomen Exam Limited; Complete Time: 18:40 EDMS 08/15 16:06 Order name: EKG; Complete Time: 16:09 snw 08/15 16:06 Order name: Cardiac monitoring; Complete Time: 16:34 snw 08/15 16:06 Order name: EKG - Nurse/Tech; Complete Time: 16:34 snw 08/15 16:06 Order name: IV Saline Lock; Complete Time: 16:34 snw 08/15 16:06 Order name: Labs collected and sent; Complete Time: 16:34 snw 08/15 16:06 Order name: O2 Per Protocol; Complete Time: 16:34 snw 08/15 16:06 Order name: O2 Sat Monitoring; Complete Time: 16:35 snw 08/15 18:39 Order name: NPO; Complete Time: 19:01 snw Administered Medications: 17:01 Drug: fentaNYL (PF) 50 mcg Route: IVP; Site: left antecubital; sg 19:02 Drug: fentaNYL (PF) 50 mcg Route: IVP; Site: left antecubital; sg Disposition: 08/15/18 18:38 Transfer ordered to [facility]. Diagnosis are Cholelithiasis, Cholecystitis. - Reason for transfer: Higher level of care. - Accepting physician is Dr. Dinah Land. - Condition is Stable. - Problem is new. - Symptoms are unchanged. Addendum: 08/19/2018 09:55 Co-signature as Attending Physician, Gilmar Miranda MD I agree with the assessment and c jones plan of care. Signatures: Dispatcher [employer] EDWV Tien Fitch RN RN sg Anderson, Corey, MD MD cha Therrien, Shelly, ENTRY LEVEL PROJECT ENGINEER-C ENTRY LEVEL PROJECT ENGINEER-Csnw Corrections: (The following items were deleted from the chart) 08/15 18:17 17:58 Abdomen Limited+US.RAD.BRZ ordered. [facility] EDWV 19:08 18:38 08/15/2018 18:38 Transfer ordered to [facility]. sg Diagnosis is Cholelithiasis; Cholecystitis. Reason for transfer: Higher level of care. Accepting physician is Dr. Dinah Land. Condition is Stable. Problem is new. Symptoms are unchanged. snw
--- NOTE | 2018-08-16 08:04 | EKG ---
Test Date: 2018-08-15 Test Time: 16:28:20 Retail Product Demo Specialist: SHERIF MEASUREMENT RESULTS: Intervals: Rate: 74 OK: 164 QRSD: 86 QT: 388 QTc: 430 Webster: P: -17 OK: 164 QRS: 67 T: 45 INTERPRETIVE STATEMENTS: Normal sinus rhythm Normal ECG Compared to ECG 01/14/2018 15:08:02 Sinus tachycardia no longer present Left-axis deviation no longer present Electronically Signed On 08-16-18 08:03:18 CDT by Rolan Aguila
== END 2018-08-15 19:08 | disposition short-term general hospital (02) ==
LOC: ER 15:57
DX: K80.20 Calculus of gallbladder without cholecystitis without obstruction (principal); K81.9 Cholecystitis, unspecified; E78.5 Hyperlipidemia, unspecified; I10 Essential (primary) hypertension; Z72.0 Tobacco use; Z88.0 Allergy status to penicillin; Z91.041 Radiographic dye allergy status; Z79.82 Long term (current) use of aspirin; Z79.51 Long term (current) use of inhaled steroids
CPT/HCPCS: 36415; 71045; 74176; 76377; 76705; 80048; 80076; 82272; 83735; 83880; 84484; 85025; 85610; 93005; 96374; 99285; J2405; J3010

== ENCOUNTER 2018-09-24 23:01 | Emergency (ER) | payer BC ==
--- OUTSIDE RECORDS SUMMARY | 2018-09-24 23:03 | XMS REPORT | Clinical Summary ---
:1955 Author Organization [facility] Address [address] [place], [place] [address] [address] Care Team Providers Name Role Phone Connor [...] Not on file Results Not on fileafter 09/23/2017 Insurance Payer Benefit Plan / Subscriber ID Type Phone Address Group BLUE CROSS/BLUE BCBS PPO POS EPO xxxxxxxxxxxx PPO [phone] [address] [place] [address] Advance Directives For more information, please contact:[address], [place] [phone] Code Status Date Activated Date Inactivated Comments Full Code 08/27/2015 10:05 PM 08/31/2015 1:59 PM This code status was determined by: Patient
--- OUTSIDE RECORDS SUMMARY | 2018-09-24 23:12 | XMS REPORT | Summary of Care ---
:1955 Author Organization [facility] Cardiology [facility] Address [address] [place] [address]- Encounter HQ Encntr_alias(FIN) [id number] Date(s): 02/11/18 - 02/11/18 [facility] Cardiology [facility] [address] [place] [address] [phone] Attending Physician: Hector Ahuja MD Vital Signs No data available for this section Problem List Condition Effective Dates Status Health Status Informant CAD (coronary artery Active disease)(Confirmed) HLD (hyperlipidemia)(Confirmed) Active HTN (hypertension)(Confirmed) Active Allergies, Adverse Reactions, Alerts Substance Reaction Severity Status penicillins Active NKFA Active iodine1 contrast dye Active 1hives Medications No data available for this section Results No data available for this section Immunizations No data available for this section Procedures Procedure Date Related Diagnosis Body Site Status CABG x 4 - Coronary artery bypass 11/02/17 Completed grafts x 4 Repair of umbilical hernia 2016 Completed Social History Social History Type Response Substance Abuse Use: None. Alcohol Past Smoking Status Former smoker; Exposure to Tobacco Smoke None; Cigarette Smoking Last 365 Days No; Reg Smoking Cessation Counseling No; Stopped at age: 61; entered on: 08/16/18 Assessment and Plan No data available for this section
--- OUTSIDE RECORDS SUMMARY | 2018-09-24 23:12 | XMS REPORT | Summary of Care ---
:1955 Author Organization [facility] Cardiology [facility] Address [address] [place] [address]- Encounter HQ Encntr_alias(FIN) [id number] Date(s): 04/29/18 - 04/29/18 [facility] [address] [facility] [address] [place] [address] [phone] Attending Physician: Hector Ahuja MD Vital Signs No data available for this section Problem List No data available for this section Allergies, Adverse Reactions, Alerts Substance Reaction Severity Status penicillins Active penicillin1 Active iodine2 Active [id number] Medications No data available for this section Results No data available for this section Immunizations No data available for this section Procedures Procedure Date Related Diagnosis Body Site Status CABG - Coronary artery bypass graft 11/02/17 Completed CABG x 4 - Coronary artery bypass Completed grafts x 4 Repair of umbilical hernia Completed Social History Social History Type Response Alcohol Past Smoking Status Former smoker; Exposure to Tobacco Smoke None; Cigarette Smoking Last 365 Days No; Reg Smoking Cessation Counseling No entered on: 02/27/18 Assessment and Plan No data available for this section
--- OUTSIDE RECORDS SUMMARY | 2018-09-24 23:12 | XMS REPORT | Summary of Care ---
:1955 Author Organization [facility] Cardiology [facility] Address [address] [place] [address]- Encounter HQ Radhar_vikash(FIN) [id number] Date(s): 02/13/18 - 02/13/18 [facility] [address] [place] [address]- [phone] Discharge Disposition: Home or Self Care Attending Physician: Hector Ahuja MD Vital Signs Most recent to oldest [Reference Range]: 1 Height 185.42 cm (02/13/18 12:42 PM) Blood Pressure [90-140/60-90 mmHg] 120/82 mmHg (02/13/18 12:42 PM) Weight 85.455 kg (02/13/18 12:42 PM) Body Mass Index 24.86 m2 (02/13/18 12:42 PM) Problem List Condition Effective Dates Status Health Status Informant CAD (coronary artery Active disease)(Confirmed) HLD (hyperlipidemia)(Confirmed) Active HTN (hypertension)(Confirmed) Active Allergies, Adverse Reactions, Alerts Substance Reaction Severity Status penicillins Active NKFA Active iodine1 contrast dye Active 1hives Medications aspirin 81 mg tablet, enteric coated 162 mg=2 tab, PO, Daily, # 90 tab, 3 Refill(s) Start Date: 02/13/18 Stop Date: 02/21/18 Status: Discontinuedatorvastatin 80 mg oral tablet 80 mg=1 tab, PO, Bedtime, 0 Refill(s) Start Date: 02/13/18 Status: OrderedbusPIRone 10 mg oral tablet 10 mg=1 tab, PO, BID, 0 Refill(s) Start Date: 02/13/18 Status: Orderedclopidogrel 75 mg oral tablet 75 mg=1 tab, PO, Daily, 0 Refill(s) Start Date: 02/13/18 Status: OrderedDULoxetine 30 mg oral delayed release capsule 30 mg=1 cap, PO, Daily, # 30 cap, 0 Refill(s) Start Date: 02/13/18 Stop Date: 02/21/18 Status: Discontinuedmetoprolol succinate 25 mg oral capsule, extended release 25 mg=1 cap, PO, Daily, 0 Refill(s) Start Date: 02/13/18 Stop Date: 06/02/18 Status: Completedmidodrine 2.5 mg oral tablet 5 mg=2 tab, PO, Daily, # 180 tab, 0 Refill(s) Start Date: 02/13/18 Stop Date: 02/21/18 Status: Discontinuedpantoprazole 40 mg oral enteric coated tablet 40 mg=1 tab, PO, Daily, # 30 tab, 0 Refill(s) Start Date: 02/13/18 Stop Date: 02/21/18 Status: DiscontinuedSennosides Sennosides, 8.6 mg=, PO, Daily, Refill(s) 0 Start Date: 02/13/18 Stop Date: 02/21/18 Status: Discontinuedtramadol 50 mg oral tablet 50 mg=1 tab, PO, Q4H, PRN Pain, # 60 tab, 0 Refill(s) Start Date: 02/13/18 Stop Date: 02/21/18 Status: Discontinuedtrazodone 50 mg oral tablet 50 mg=1 tab, PO, TID, # 90 tab, 0 Refill(s) Start Date: 02/13/18 Stop Date: 02/21/18 Status: Discontinued Results No data available for this section Immunizations No data available for this section Procedures Procedure Date Related Diagnosis Body Site Status CABG x 4 - Coronary artery bypass 11/02/17 Completed grafts x 4 Repair of umbilical hernia 2017 Completed Social History Social History Type Response Substance Abuse Use: None. Alcohol Past Smoking Status Former smoker; Exposure to Tobacco Smoke None; Cigarette Smoking Last 365 Days No; Reg Smoking Cessation Counseling No; Stopped at age: 61; entered on: 08/16/18 Assessment and Plan No data available for this section
--- OUTSIDE RECORDS SUMMARY | 2018-09-24 23:13 | XMS REPORT | Summary of Care ---
:1955 Author Organization [facility] Address [address] [place] [id number]- Encounter [facility](FIN) [id number] Date(s): 02/13/18 - 02/21/[address] [address]- Encounter Diagnosis Infection following a procedure, other surgical site, initial encounter (Final) - 02/28/18 Unspecified severe protein-calorie malnutrition (Final) - Acute posthemorrhagic anemia (Final) - Osteomyelitis, unspecified (Final) - Presence of aortocoronary bypass graft (Final) - Atherosclerotic heart disease of [place] coronary artery without angina pectoris (Final) - Essential (primary) hypertension (Final) - Hyperlipidemia, unspecified (Final) - Personal history of nicotine dependence (Final) - Major depressive disorder, single episode, unspecified (Final) - Anxiety disorder, unspecified (Final) - Insomnia, unspecified (Final) - Ischemic cardiomyopathy (Final) - Constipation, unspecified (Final) - Radiographic dye allergy status (Final) - Discharge Disposition: Home Care with Home Health Attending Physician: Chi Hastings MD Admitting Physician: Chi Hastings MD Vital Signs Most recent to oldest 1 2 3 [Reference Range]: Height 185.42 cm (02/13/18 2:53 PM) Current Weight 89.003 kg 89.5 kg 89.6 kg (02/21/18 4:00 AM) (02/20/18 4:52 AM) (02/19/18 6:34 AM) Temperature Oral [96.4-99.1 98.3 DegF 97.7 DegF 98.3 DegF DegF] (02/21/18 10:48 AM) (02/21/18 7:47 AM) (02/21/18 4:00 AM) Blood Pressure 117/72 mmHg 134/86 mmHg 115/76 mmHg [90-140/60-90 mmHg] (02/21/18 10:48 AM) (02/21/18 7:47 AM) (02/21/18 4:00 AM ) Respiratory Rate [14-20 18 BRMIN 18 BRMIN 18 BRMIN BRMIN] (02/21/18 10:48 AM) (02/21/18 7:47 AM) (02/21/18 4:00 AM) Peripheral Pulse Rate 68 bpm 76 bpm 78 bpm [60-100 bpm] (02/21/18 10:48 AM) (02/21/18 7:47 AM) (02/21/18 4:00 AM) Weight 85 kg (02/13/18 2:53 PM) Body Mass Index 24.72 m2 (02/13/18 2:53 PM) Problem List Condition Effective Dates Status Health Status Informant CAD (coronary artery Active disease)(Confirmed) HLD (hyperlipidemia)(Confirmed) Active HTN (hypertension)(Confirmed) Active Allergies, Adverse Reactions, Alerts Substance Reaction Severity Status penicillins Active NKFA Active iodine1 contrast dye Active 1hives Medications acetaminophen 650 mg, 1 supp, Route: LA, Drug form: SUPP, Q4H, Dosing Weight 85, kg, PRN Pain 1-3/Temp > 100.4 F, Start date: 02/14/18 17:46:00 J2EE DEVELOPER, 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, Stop date: 03/16/18 17:45:00 J2EE DEVELOPER Notes: Max vcttqhisbqbzj=1123 mg/day (4 gm/day). (Same as: Tylenol) Start Date: 02/14/18 Stop Date: 02/15/18 Status: Discontinuedacetaminophen 650 mg, 2 tab, Route: PO, Drug form: TAB, Q4H, kg, PRN For Temp > 100.4 F, Start date: 02/13/18 14:53:00 J2EE DEVELOPER, 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, Stop date: 03/15/18 14:52: 00 J2EE DEVELOPER Notes: Do not exceed 4 gm/day. (Same as: Tylenol) Start Date: 02/13/18 Stop Date: 02/21/18 Status: Discontinuedacetaminophen-hydrocodone 325 mg-5 mg oral tablet 1 tab, Route: PO, Drug Form: TAB, Dosing Weight 85, kg, Q4H, PRN Pain Score 4-6 , Start date: 02/14/18 17:46:00 J2EE DEVELOPER, 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, Stop date: 03/16/18 17:45 :00 J2EE DEVELOPER Notes: (Same as: [place] 325/5) Do not exceed 4gm/day of acetaminophen. Start Date: 02/14/18 Stop Date: 02/21/18 Status: DiscontinuedANES flumazenil 0.2 mg, 2 mL, Route: IVP, Drug form: INJ, PRN, Dosing Weight 85, kg, PRN Benzodiazepine Reversal, Initial dose, Start date: 02/14/18 15:47:00 J2EE DEVELOPER, 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, Stop date: 03/16/18 15:46:00 J2EE DEVELOPER Notes: (Same as: Romazicon) Start Date: 02/14/18 Stop Date: 02/14/18 Status: DiscontinuedANES HYDROmorphone 0.5 mg, 0.25 mL, Route: IVP, Drug form: INJ, Q5Min, Dosing Weight 85, kg, PRN Pain Score 7-10, Startdate: 02/14/18 15:47:00 J2EE DEVELOPER, Duration: 4 doses or times, Stop date: Limited # of times Notes: Same as Dilaudid Start Date: 02/14/18 Stop Date: 02/14/18 Status: DiscontinuedANES ketOROLAC 30 mg, 1 mL, Route: IVP, Drug form: INJ, ONCE, Dosing Weight 85, kg, Start date : 02/14/18 15:47:00 J2EE DEVELOPER, 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/14/18 15:47:00 J2EE DEVELOPER Notes: (Same as:Toradol) IV bolus must be given >15 seconds. Give IM administration slowly and deeply into the muscle.Not for use > 4 days MEDICATION WASTE Product Size: 30 mgProduct Wasted: ___ mg Start Date: 02/14/18 Stop Date: 02/14/18 Status: DiscontinuedANES labetalol 10 mg, 2 mL, Route: IVP, Drug form: INJ, Q5Min, Dosing Weight 85, kg, PRN Elevated BP, Start date: 02/14/18 15:47:00 J2EE DEVELOPER, Duration: 5 doses or times, Stop date: Limited # of times Notes: (Same as: Normodyne, Trandate)Push over 2 minutes Give bolus over 2-3 minutes. Start Date: 02/14/18 Stop Date: 02/14/18 Status: DiscontinuedANES metoprolol 1 mg, 1 mL, Route: IVP, Drug form: INJ, Q5Min, Dosing Weight 85, kg, PRN Other - See Comment, Start date: 02/14/18 15:47:00 J2EE DEVELOPER, Duration: 5 doses or times, Stop date: Limited # of times Notes: (Same as: Lopressor)Push over 2 minutes Start Date: 02/14/18 Stop Date: 02/14/18 Status: DiscontinuedANES morphine Sulfate 4 mg, 1 mL, Route: IVP, Drug form: SOLN, Q10Min, Dosing Weight 85, kg, PRN Pain Score 7-10, Start date: 02/14/18 15:47:00 J2EE DEVELOPER, Duration: 3 doses or times, Stop date: Limited # of times Notes: (Same as:MORPhine Sulfate) Start Date: 02/14/18 Stop Date: 02/14/18 Status: DiscontinuedANES naloxone 0.4 mg, 1 mL, Route: IVP, Drug form: INJ, Q2MIN, Dosing Weight 85, kg, PRN Narcotic Reversal, Start date: 02/14/18 15:47:00 J2EE DEVELOPER, Duration: 8 doses or times , Stop date: Limited # of times Notes: Same as Narcan Start Date: 02/14/18 Stop Date: 02/14/18 Status: DiscontinuedANES ondansetron 4 mg, 2 mL, Route: IVP, Drug form: INJ, ONCE, Dosing Weight 85, kg, PRN Nausea & amp; Vomiting, Startdate: 02/14/18 15:47:00 J2EE DEVELOPER Notes: (Same as: Zofran) MEDICATION WASTE Product Size: 4 mgProduct Wasted: ___ mg Start Date: 02/14/18 Stop Date: 02/14/18 Status: DiscontinuedANES promethazine + Sodium Chloride 0.9% IV 50 mL 6.25 mg, 0.25 mL, Route: IVPB, ONCE, Dosing Weight 85, kg, PRN Nausea & Vomiting, Start date: 02/14/18 15:47:00 J2EE DEVELOPER Notes: Do not give IV push. (Same as: Phenergan) Start Date: 02/14/18 Stop Date: 02/14/18 Status: DiscontinuedAtivan 1 mg, 1 tab, Route: PO, Drug form: TAB, Bedtime, Dosing Weight 85, kg, PRN Sleep , Start date: 02/14/18 12:24:00 J2EE DEVELOPER, 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, Stop date: 03/16/18 12:23 :00 J2EE DEVELOPER Notes: (Same as: Ativan) Start Date: 02/14/18 Stop Date: 02/21/18 Status: Discontinuedatorvastatin 80 mg, 2 tab, Route: PO, Drug form: TAB, Bedtime, Dosing Weight 85, kg, Start date: 02/13/18 21:00:00 J2EE DEVELOPER, 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, Stop date: 03/14/18 21:00:00 J2EE DEVELOPER Notes: (Same as: Lipitor) Start Date: 02/13/18 Stop Date: 02/21/18 Status: Discontinuedatorvastatin 80 mg oral tablet 80 mg=1 tab, PO, Bedtime, # 30 tab, 0 Refill(s) Start Date: 02/13/18 Stop Date: 02/18/18 Status: DiscontinuedBD Normal Saline Flush 10 mL, Route: IV, Drug Form: INJ, PRN, PRN Line Flush, Start date: 02/19/18 8:04 :00 J2EE DEVELOPER, 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, Stop date: 03/21/18 8:03:00 J2EE DEVELOPER Notes: (Same as: BD Posiflush) Start Date: 02/19/18 Stop Date: 02/21/18 Status: DiscontinuedBD Normal Saline Flush 5 mL, Route: IV, Drug Form: INJ, PRN, PRN Line Flush, Start date: 02/19/18 8:04: 00 J2EE DEVELOPER, Duration: 30day, Stop date: 03/21/18 8:03:00 J2EE DEVELOPER Notes: (Same as: BD Posiflush) Start Date: 02/19/18 Stop Date: 02/21/18 Status: DiscontinuedBeneprotein 7 gm pkt 1 pkt, Route: PO, Drug Form: PWDR, Dosing Weight 85, kg, BID-Meals, Start date: 02/18/18 12:38:00 J2EE DEVELOPER, 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, Stop date: 03/20/18 8:00:00 J2EE DEVELOPER Notes: (Same as: Beneprotein) Start Date: 02/18/18 Stop Date: 02/21/18 Status: DiscontinuedbusPIRone 10 mg, 1 tab, Route: PO, Drug form: TAB, BID, Dosing Weight 85, kg, Start date: 02/13/18 17:00:00 J2EE DEVELOPER, 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, Stop date: 03/15/18 9:00:00 J2EE DEVELOPER Notes: (Same As: BuSpar) Start Date: 02/13/18 Stop Date: 02/21/18 Status: DiscontinuedbusPIRone 10 mg oral tablet 10 mg=1 tab, PO, BID, 0 Refill(s) Start Date: 02/13/18 Stop Date: 02/21/18 Status: Discontinueddexamethasone (ANES) Route: IV, Drug form: INJ, ONCE, 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/14/18 16:02:00 J2EE DEVELOPER Start Date: 02/14/18 Stop Date: 02/14/18 Status: CompletedDextrose 50% Syringe 25 gm, 50 mL, Route: IVP, Drug Form: INJ, kg, PRN, PRN Blood Glucose Results, Start date: 02/13/18 14:53:00 J2EE DEVELOPER, 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, Stop date: 03/15/18 14:52: 00 J2EE DEVELOPER Start Date: 02/13/18 Stop Date: 02/21/18 Status: DiscontinuedDextrose 50% Syringe 12.5 gm, 25 mL, Route: IVP, Drug Form: INJ, kg, PRN, PRN Blood Glucose Results, Start date: 02/13/1814:53:00 J2EE DEVELOPER, 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, Stop date: 03/15/18 14:52: 00 J2EE DEVELOPER Start Date: 02/13/18 Stop Date: 02/21/18 Status: DiscontinueddiphenhydrAMINE 25 mg, 1 cap, Route: PO, Drug form: CAP, Bedtime, Dosing Weight 85, kg, PRN Insomnia, Start date: 02/14/18 17:46:00 J2EE DEVELOPER, 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, Stop date: 17:45:00 J2EE DEVELOPER Notes: (Same as: Benadryl) Start Date: 02/14/18 Stop Date: 02/15/18 Status: Discontinueddocusate sodium 100 mg oral capsule 100 mg, 1 cap, Route: PO, Drug form: CAP, BID, Dosing Weight 85, kg, Start date : 02/15/18 9:00:00 J2EE DEVELOPER, 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, Stop date: 03/16/18 17:00:00 J2EE DEVELOPER Notes: (Same as: Colace) (Do Not Crush) Start Date: 02/15/18 Stop Date: 02/21/18 Status: Discontinueddocusate sodium 100 mg oral capsule 100 mg, 1 cap, Route: PO, Drug form: CAP, Bedtime, Dosing Weight 85, kg, Start date: 02/17/18 21:00:00 J2EE DEVELOPER, 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, Stop date: 03/18/18 21:00:00 J2EE DEVELOPER Notes: (Same as: Colace) (Do Not Crush) Start Date: 02/17/18 Stop Date: 02/19/18 Status: DiscontinuedDulcolax Laxative 5 mg, 1 tab, Route: PO, Drug form: ECTAB, Q24H, Dosing Weight 85, kg, PRN Constipation, Start date: 02/14/18 17:46:00 J2EE DEVELOPER, 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, Stop date: 17:45:00 J2EE DEVELOPER Notes: (Same As: Dulcolax, Correctol) (Do Not Crush) "Do Not Crush" Start Date: 02/14/18 Stop Date: 02/15/18 Status: DiscontinuedDULoxetine 30 mg, PO, Daily, 0 Refill(s) Start Date: 02/13/18 Stop Date: 06/02/18 Status: CompletedDULoxetine 30 mg, 1 cap, Route: PO, Drug form: DRC, Daily, Dosing Weight 85, kg, Start date : 02/14/18 9:00:00 J2EE DEVELOPER, 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, Stop date: 03/15/18 9:00:00 J2EE DEVELOPER Notes: (Same as: Cymbalta) (Do Not Crush) Start Date: 02/14/18 Stop Date: 02/21/18 Status: Discontinuedenoxaparin 40 mg, 0.4 mL, Route: SUB-Q, Drug form: INJ, [id number], Dosing Weight 85, kg, Start date: 02/15/18 9:00:00 J2EE DEVELOPER, 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, Stop date: 03/16/18 9:00:00 J2EE DEVELOPER Notes: (Same as: Lovenox) Start Date: 02/15/18 Stop Date: 02/21/18 Status: DiscontinuedePHEDrine (ANES) Route: IV, Drug form: INJ, ONCE, 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/14/18 16:07:00 J2EE DEVELOPER Start Date: 02/14/18 Stop Date: 02/14/18 Status: CompletedfentaNYL (ANES) Route: IV, Drug form: INJ, ONCE, 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/14/18 15:57:00 J2EE DEVELOPER Start Date: 02/14/18 Stop Date: 02/14/18 Status: Completedferrous sulfate 325 mg, 1 tab, Route: PO, Drug form: TAB, Daily, Dosing Weight 85, kg, Start date: 02/18/18 10:37:00CST, 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, Stop date: 03/20/18 9:00:00 J2EE DEVELOPER Notes: Give with food.iron elemental [id number] as ferrous sulfateDose=___mg elemental iron Start Date: 02/18/18 Stop Date: 02/21/18 Status: DiscontinuedFleet Enema 133 mL, Route: LA, Drug Form: CARLOZ, Dosing Weight 85, kg, ONCE, Start date: 11:47:00 J2EE DEVELOPER, 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/20/18 11:47:00 J2EE DEVELOPER, For Constipation > 12 years, Pediatric Dosing Start Date: 02/20/18 Stop Date: 02/20/18 Status: Completedglucagon 1 mg, Route: IM, Drug form: PDR/INJ, PRN, kg, PRN Blood Glucose Results, Start date: 02/13/18 14:53:00 J2EE DEVELOPER, 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, Stop date: 03/15/18 14:52:00 J2EE DEVELOPER Start Date: 02/13/18 Stop Date: 02/21/18 Status: Discontinuediron sulfate (ferrous sulfate) 325 mg oral tablet 325 mg=1 tab, PO, Daily, 0 Refill(s) Start Date: 02/21/18 Stop Date: 06/02/18 Status: Completedlidocaine (ANES) Route: IV, Drug form: INJ, ONCE, 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/14/18 15:57:00 J2EE DEVELOPER Start Date: 02/14/18 Stop Date: 02/14/18 Status: Completedlisinopril 5 mg, 1 tab, Route: PO, Drug form: TAB, Daily, Dosing Weight 85, kg, Start date : 02/20/18 9:18:00 J2EE DEVELOPER, 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, Stop date: 03/22/18 9:00:00 J2EE DEVELOPER Notes: (Same as: Prinivil, Zestril) Start Date: 02/20/18 Stop Date: 02/21/18 Status: Discontinuedlisinopril 5 mg oral tablet 5 mg=1 tab, PO, Daily, 0 Refill(s) Start Date: 02/21/18 Stop Date: 05/21/18 Status: Discontinuedmetoprolol succinate 25 mg oral capsule, extended release 25 mg=1 cap, PO, Daily, 0 Refill(s) Start Date: 02/13/18 Stop Date: 02/21/18 Status: Discontinuedmidazolam (ANES) Route: IV, Drug form: SOLN, ONCE, 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/14/18 15:57:00 J2EE DEVELOPER Start Date: 02/14/18 Stop Date: 02/14/18 Status: Completedmidodrine 2.5 mg oral tablet 2.5 mg=1 tab, PO, BID, 0 Refill(s) Start Date: 02/13/18 Stop Date: 02/18/18 Status: DiscontinuedMiraLax 17 gm, 1 pkt, Route: PO, Drug form: PWDR, Daily, Dosing Weight 85, kg, PRN Constipation, Start date:02/17/18 9:49:00 J2EE DEVELOPER, 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, Stop date: 9:48:00 J2EE DEVELOPER Notes: Dissolve in 8 oz of water or juice.(Same as: Miralax) Start Date: 02/17/18 Stop Date: 02/21/18 Status: Discontinuedmirtazapine 15 mg, 1 tab, Route: PO, Drug form: TAB, Bedtime, Dosing Weight 85, kg, Start date: 02/14/18 21:00:00 J2EE DEVELOPER, 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, Stop date: 03/15/18 21:00:00 J2EE DEVELOPER Notes: (Same as:Remeron) Start Date: 02/14/18 Stop Date: 02/21/18 Status: Discontinuedmirtazapine 15 mg oral tablet 15 mg=1 tab, PO, Bedtime, 0 Refill(s) Start Date: 02/21/18 Stop Date: 06/21/18 Status: Deletedmorphine 0.5 mg/mL preservative-free injectable solution 2 mg, 0.5 mL, Route: IVP, Drug form: SOLN, ONCE, Dosing Weight 85, kg, Start date: 02/15/18 7:38:00 J2EE DEVELOPER, 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/15/18 7:38:00 J2EE DEVELOPER Notes: (Same as:MORPhine Sulfate) Start Date: 02/15/18 Stop Date: 02/15/18 Status: Completedmorphine Sulfate 2 mg, 0.5 mL, Route: IVP, Drug form: SOLN, ONCE, Dosing Weight 85, kg, Start date: 02/15/18 9:35:00 J2EE DEVELOPER, 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/15/18 9:35:00 J2EE DEVELOPER Notes: (Same as:MORPhine Sulfate) Start Date: 02/15/18 Stop Date: 02/15/18 Status: Completedmultivitamin with minerals 1 tab, Route: PO, Drug Form: TAB, Dosing Weight 85, kg, Daily, Start date: 02/14 10:00:00 J2EE DEVELOPER, 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, Stop date: 03/16/18 9:00:00 J2EE DEVELOPER Notes: (Same as:Thera-M, Theragran-M)WASTE: F/P - Black; E - Municipal Trash Bin Give with food. Start Date: 02/14/18 Stop Date: 02/21/18 Status: DiscontinuedNS 1,000 mL 1,000 mL, Rate: 75 ml/hr, Infuse over: 13.3 hr, Route: IV, Dosing Weight 85 kg, Total Volume: 1,000,Start date: 02/13/18 16:01:00 J2EE DEVELOPER, 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, Stop date: 03/15/18 16:00:00 J2EE DEVELOPER, 2.1, m2 Start Date: 02/13/18 Stop Date: 02/18/18 Status: Discontinuedondansetron 4 mg, 1 tab, Route: SL, Drug form: TABDIS, Q6H, Dosing Weight 85, kg, PRN Nausea & Vomiting, Start date: 02/14/18 17:46:00 J2EE DEVELOPER, 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, Stop date: 03/16/18 17:45:00 J2EE DEVELOPER Notes: (Same as: Zofran ODT) Start Date: 02/14/18 Stop Date: 02/21/18 Status: Discontinuedondansetron 4 mg, 2 mL, Route: IVP, Drug form: INJ, Q8H, kg, PRN Nausea & Vomiting, Start date: 02/13/18 14:53:00 J2EE DEVELOPER, 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, Stop date: 03/15/18 14:52: 00 J2EE DEVELOPER Notes: (Same as: Zofran) MEDICATION WASTE Product Size: 4 mgProduct Wasted: ___ mg Start Date: 02/13/18 Stop Date: 02/18/18 Status: Discontinuedondansetron (ANES) Route: IV, Drug form: INJ, ONCE, 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/14/18 16:02:00 J2EE DEVELOPER Start Date: 02/14/18 Stop Date: 02/14/18 Status: Completedphenylephrine (ANES) Route: IV, Drug form: INJ, ONCE, 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/14/18 16:02:00 J2EE DEVELOPER Start Date: 02/14/18 Stop Date: 02/14/18 Status: CompletedPlavix 75 mg, 1 tab, Route: PO, Drug form: TAB, Daily, Dosing Weight 85, kg, Start date : 02/14/18 9:00:00 J2EE DEVELOPER, 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, Stop date: 03/15/18 9:00:00 J2EE DEVELOPER Notes: (Same As: Plavix) Start Date: 02/14/18 Stop Date: 02/21/18 Status: DiscontinuedPlavix 75 mg oral tablet 75 mg=1 tab, PO, Daily, # 90 tab, 1 Refill(s) Start Date: 02/13/18 Stop Date: 02/21/18 Status: Discontinuedpotassium chloride 20 mEq oral tablet, extended release 40 mEq, 2 tab, Route: PO, Drug form: ERTAB, ONCE, Dosing Weight 85, kg, Start date: 02/13/18 17:28:00 J2EE DEVELOPER, 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/13/18 17:28:00 J2EE DEVELOPER Notes: (Same as: K-Dur 20)"Do Not Crush" Give with food and full glass of waterFor patients unable to swallow tablet, dissolve in one half glass of water. Allow about 2 minutes for the tablets to disintegrate. Stir before giving to prepare slurry and administer.Please exclude Patients with feedingtube less than 14 [place] ([place]obhoff, J-tube etc) and pediatric and patients. Start Date: 02/13/18 Stop Date: 02/13/18 Status: Completedpropofol (ANES) Route: IV, Drug form: INJ, ONCE, 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/14/18 15:57:00 J2EE DEVELOPER Start Date: 02/14/18 Stop Date: 02/14/18 Status: CompletedRocephin + Sodium Chloride 0.9% IV 100 mL 1 gm, Route: IVPB, [id number], Dosing Weight 85, kg, Start date: 02/13/18 16:00:00 J2EE DEVELOPER, Duration: 7 day, 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/19/18 16:00:00 J2EE DEVELOPER, ABX Indication: Skin/ Soft Tissue Infection Notes: (Same As: Rocephin).Use with 100 mL NS and infuse over 30 min MEDICATION WASTE Product Size: 1000 mgProduct Wasted: ___ mg Start Date: 02/13/18 Stop Date: 02/19/18 Status: Completedrocuronium (ANES) Route: IV, Drug form: INJ, ONCE, 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/14/18 15:57:00 J2EE DEVELOPER Start Date: 02/14/18 Stop Date: 02/14/18 Status: CompletedSaline Flush 0.9% 10 ml, Route: IVP, Drug Form: INJ, Dosing Weight 85, kg, PRN, PRN Line Flush, Start date: 02/14/18 17:46:00 J2EE DEVELOPER, 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, Stop date: 03/16/18 17:45: 00 J2EE DEVELOPER Notes: (Same as: BD Posiflush) Start Date: 02/14/18 Stop Date: 02/15/18 Status: DiscontinuedSaline Flush 0.9% 10 mL, Route: IVP, Drug Form: INJ, Dosing Weight 85, kg, Q8H, Start date: 16:00:00 J2EE DEVELOPER, 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, Stop date: 03/17/18 8:00:00 J2EE DEVELOPER Notes: (Same as: BD Posiflush) Start Date: 02/15/18 Stop Date: 02/19/18 Status: Voided With ResultsSaline Flush 0.9% 10 mL, Route: IVP, Drug Form: INJ, Dosing Weight 85, kg, PRN, PRN Line Flush, Start date: 02/15/18 11:44:00 J2EE DEVELOPER, 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, Stop date: 03/17/18 11:43: 00 J2EE DEVELOPER Notes: (Same as: BD Posiflush) Start Date: 02/15/18 Stop Date: 02/19/18 Status: DeletedSodium Chloride 0.45% IV 1,000 mL 1,000 mL, Rate: 100 ml/hr, Infuse over: 10 hr, Route: IV, Dosing Weight 85 kg, Total Volume: 1,000, Start date: 02/14/18 17:46:00 J2EE DEVELOPER, 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, Stop date: 03/16/18 17:45:00 J2EE DEVELOPER, 2.1, m2 Start Date: 02/14/18 Stop Date: 02/15/18 Status: DiscontinuedSodium Chloride 0.9% (Bolus) IV 500 mL, 1500 ml/hr, Infuse Over: 20 minutes, Route: IV, 500, Drug form: INJ, ONCE, Dosing Weight 85 kg, Start date: 02/14/18 15:47:00 J2EE DEVELOPER, Stop date: 15:47:00 J2EE DEVELOPER Start Date: 02/14/18 Stop Date: 02/14/18 Status: DiscontinuedSodium Chloride 0.9% (titrate) 250 mL 250 mL, Rate: To prime line and flush remaining blood products., Dosing Weight 85, kg, Route: IV, Total Volume: 250, Priority: Routine, Start Date: 02/13/18 19 :24:00 J2EE DEVELOPER, 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, Stop date: 03/15/18 19:23:00 J2EE DEVELOPER, Replace Every: 24 hr Start Date: 02/13/18 Stop Date: 02/18/18 Status: DiscontinuedSodium Chloride 0.9% IV 25 mL, Route: IV, Start date: 02/19/18 8:04:00 J2EE DEVELOPER, 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, Stop date : 03/21/18 8:03:00 J2EE DEVELOPER, PRN Line Flush Start Date: 02/19/18 Stop Date: 02/21/18 Status: DiscontinuedSodium Chloride 0.9% IV (ANES) 1000 mL Route: IV, Total Volume: 1,000, Start date: 02/14/18 15:08:00 J2EE DEVELOPER, Stop date: 16:08:00 J2EE DEVELOPER Start Date: 02/14/18 Stop Date: 02/14/18 Status: Completedsuccinylcholine (ANES) Route: IV, Drug form: INJ, ONCE, 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/14/18 16:02:00 J2EE DEVELOPER Start Date: 02/14/18 Stop Date: 02/14/18 Status: Completedsugammadex (ANES) Route: IV, Drug form: SOLN, ONCE, 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/14/18 16:11:00 J2EE DEVELOPER Start Date: 02/14/18 Stop Date: 02/14/18 Status: Completedsulfamethoxazole-trimethoprim DS 800 mg-160 mg oral tablet 1 tab, PO, BID, # 14 tab, 0 Refill(s) Start Date: 02/13/18 Stop Date: 02/17/18 Status: Discontinuedthiamine 100 mg, 1 tab, Route: PO, Drug form: TAB, Daily, Dosing Weight 85, kg, Start date: 02/14/18 10:00:00CST, 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, Stop date: 03/16/18 9:00:00 J2EE DEVELOPER Notes: (Same As: Vitamin B1) Start Date: 02/14/18 Stop Date: 02/21/18 Status: DiscontinuedToprol-XL 25 mg oral tablet, extended release 25 mg, 1 tab, Route: PO, Drug form: ERTAB, Daily, Start date: 02/14/18 9:00:00 J2EE DEVELOPER, 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, Stop date: 03/15/18 9:00:00 J2EE DEVELOPER Notes: (Same as: Toprol XL) Do Not Crush Start Date: 02/14/18 Stop Date: 02/21/18 Status: Discontinuedtramadol 50 mg, PO, Q4-6H, PRN Pain, # 20 tab, 0 Refill(s) Start Date: 02/13/18 Stop Date: 02/21/18 Status: Discontinuedtramadol 50 mg oral tablet 50 mg=1 tab, PO, Q8H, PRN Pain, X 3 day, # 7 tab, 0 Refill(s) Start Date: 02/21/18 Stop Date: 02/24/18 Status: Completedtrazodone 50 mg oral tablet 100 mg=2 tab, PO, Bedtime, 0 Refill(s) Start Date: 02/13/18 Stop Date: 05/09/18 Status: Deletedtrazodone 50 mg oral tablet 100 mg, 2 tab, Route: PO, Drug form: TAB, Bedtime, Dosing Weight 85, kg, Start date: 02/13/18 21:00:00 J2EE DEVELOPER, 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, Stop date: 03/14/18 21:00:00 J2EE DEVELOPER Notes: (Same As: Alessandra) Start Date: 02/13/18 Stop Date: 02/21/18 Status: Discontinuedvancomycin 1.5 gm, 250 mL, Route: IVPB, Drug form: INJ, [id number], Dosing Weight 85, kg, Start date: 02/16/18 15:00:00 J2EE DEVELOPER, 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, Stop date: 03/18/18 5:00: 00 J2EE DEVELOPER, ABX Indication: Bone/Joint Infection Notes: TIME CRITICAL MEDICATIONSame as: Vancocin-NS (premixed)Infusion rate< 1000 mg: infuse over1 [id number] - 1500 mg: infuse over 1.5 [id number] - 2000 mg: infuse over 2 hours> 2001 mg: infuse over 2.5 hours Start Date: 02/16/18 Stop Date: 02/20/18 Status: Discontinuedvancomycin 1.25 gm, 250 mL, Route: IVPB, Drug form: INJ, Q12H, Dosing Weight 85, kg, Start date: 02/20/18 21:00:00 [employer]ELOPER, 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, Stop date: 03/22/18 9:00:00 [employer] DEVELOPER, ABX Indication: Bone/Joint Infection Notes: TIME CRITICAL MEDICATIONSame as: Vancocin-NS (premixed)Infusion rate< 1000 mg: infuse over1 [id number] - 1500 mg: infuse over 1.5 [id number] - 2000 mg: infuse over 2 hours> 2001 mg: infuse over 2.5 hours Start Date: 02/20/18 Stop Date: 02/21/18 Status: Discontinuedvancomycin (ANES) 1000 mg Route: IV, Drug form: INJ, Start date: 02/14/18 15:45:00 [employer] DEVELOPER, Stop date: 16:45:00 [employer] DEVELOPER Start Date: 02/14/18 Stop Date: 02/14/18 Status: Completedvancomycin + Sodium Chloride 0.9% IV 250 mL 1,000 mg, Route: IVPB, [id number], Dosing Weight 85, kg, Start date: 02/13/18 18:00 :00 [employer] DEVELOPER, Duration: 14 day, 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/27/18 6:00:00 [employer] DEVELOPER, ABX Indication: Other (specify in Comments) Notes: TIME CRITICAL MEDICATION(Same As: Vancocin)Infusion rate< 1000 mg: infuse over 1 [id number] - 1500 mg: infuse over 1.5 [id number] - 2000 mg: infuse over 2 hours> 2001 mg: infuse over 2.5 hoursFor adult patients only: Round to nearest 250 mg per Medical Staff approval MEDICATION WASTE Product Size: 1000 mgProduct Wasted: ___ mg Start Date: 02/13/18 Stop Date: 02/16/18 Status: Discontinuedvancomycin 1.25 g/250 mL-NaCl 0.9% intravenous solution 1.25 ri=604 mL, IVPB, Q12H, 0 Refill(s) Start Date: 02/21/18 Stop Date: 05/11/18 Status: Discontinuedzinc sulfate 220 mg, 1 cap, Route: PO, Drug form: CAP, Daily, Dosing Weight 85, kg, Start date: 02/18/18 13:30:00CST, Duration: 14 day, Stop date: 03/04/18 9:00:00 [employer] DEVELOPER Notes: (Zinc sulfate capsule) - 220 mg Zinc sulfate=50 mg elemental zinc Same as Zinc Sulfate Start Date: 02/18/18 Stop Date: 02/21/18 Status: Discontinued Results Most recent to oldest 1 2 3 [Reference Range]: Neutrophils # [1.5-8.1 4.5 K/CMM 4.6 K/CMM 4.2 K/CMM K/CMM] (02/21/18 6:27 AM) (02/20/18 4:35 AM) (02/18/18 4:29 AM) Lymphocytes # [1.0-5.5 1.4 K/CMM 1.3 K/CMM 1.6 K/CMM K/CMM] (02/21/18 6:27 AM) (02/20/18 4:35 AM) (02/18/18 4:29 AM) Monocytes # [0.0-0.8 K/CMM] 0.6 K/CMM 0.7 K/CMM 0.7 K/CMM (02/21/18 6:27 AM) (02/20/18 4:35 AM) (02/18/18 4:29 AM) Eosinophils # [0.0-0.5 0.3 K/CMM 0.3 K/CMM 0.3 K/CMM K/CMM] (02/21/18 6:27 AM) (02/20/18 4:35 AM) (02/18/18 4:29 AM) Basophils # [0.0-0.2 K/CMM] 0.1 K/CMM 0.1 K/CMM 0.1 K/CMM (02/21/18 6:27 AM) (02/20/18 4:35 AM) (02/17/18 5:52 AM) BNP [<=100 pg/mL] 81 pg/mL (02/13/18 4:30 PM) Vanco Tr TND 0500 0530 *NA* *NA* (02/20/18 4:35 AM) (02/16/18 6:00 AM) Vanco Tr 21.8 ug/ml 6.7 ug/ml *NA* *NA* (02/20/18 4:35 AM) (02/16/18 6:00 AM) MRSA by PCR Negative (02/16/18 5:42 PM) eGFR 104 mL/min/1.73m2 1 112 mL/min/1.73m2 2 114 mL/min/1.73m2 3 *NA* *NA* *NA* (02/21/18 6:27 AM) (02/20/18 4:35 AM) (02/18/18 4:29 AM) RBC product Product available 4 (02/13/18 7:24 PM) ABO/Rh A POS *Unknown* (02/14/18 3:55 AM) A/G Ratio [0.7-1.6] 0.5 0.6 *LOW* *LOW* (02/14/18 3:55 AM) (02/13/18 4:30 PM) Antibody Scrn Negative (02/14/18 3:55 AM) Albumin Lvl [3.5-5.0 g/dL] 2.1 g/dL 2.8 g/dL 2.9 g/dL *LOW* *LOW* *LOW* (02/20/18 4:35 AM) (02/14/18 3:55 AM) (02/13/18 4:30 PM) Alk Phos [39-136 unit/L] 92 unit/L 95 unit/L (02/14/18 3:55 AM) (02/13/18 4:30 PM) ALT [0-65 unit/L] 21 unit/L 18 unit/L (02/14/18 3:55 AM) (02/13/18 4:30 PM) AGAP [10.0-20.0 mEq/L] 12.7 mEq/L 11.6 mEq/L 11.4 mEq/L (02/21/18 6:27 AM) (02/20/18 4:35 AM) (02/18/18 4:29 AM) AST [0-37 unit/L] 15 unit/L 13 unit/L (02/14/18 3:55 AM) (02/13/18 4:30 PM) B/C Ratio [6-25] 14 10 (02/14/18 3:55 AM) (02/13/18 4:30 PM) Basophils [0.0-1.0 %] 1.0 % 1.0 % 0.7 % (02/21/18 6:27 AM) (02/20/18 4:35 AM) (02/18/18 4:29 AM) BUN [7-22 mg/dL] 9 mg/dL 9 mg/dL 8 mg/dL (02/21/18 6:27 AM) (02/20/18 4:35 AM) (02/18/18 4:29 AM) Calcium Lvl [8.5-10.5 8.2 mg/dL 7.8 mg/dL 7.6 mg/dL mg/dL] *LOW* *LOW* *LOW* (02/21/18 6:27 AM) (02/20/18 4:35 AM) (02/18/18 4:29 AM) Total CK [12-191 unit/L] 26 unit/L (02/13/18 4:30 PM) Chloride Lvl [95-109 mEq/L] 109 mEq/L 111 mEq/L 111 mEq/L (02/21/18 6:27 AM) *HI* *HI* (02/20/18 4:35 AM) (02/18/18 4:29 AM) CO2 [24-32 mEq/L] 26 mEq/L 25 mEq/L 25 mEq/L (02/21/18 6:27 AM) (02/20/18 4:35 AM) (02/18/18 4:29 AM) Creatinine Lvl [0.50-1.40 0.68 mg/dL 0.56 mg/dL 0.54 mg/dL mg/dL] (02/21/18 6:27 AM) (02/20/18 4:35 AM) (02/18/18 4:29 AM) CRP [<=2.9 mg/L] 48.5 mg/L *HI* (02/13/18 4:30 PM) D-Dimer 0.55 ug/mL FEU *NA* (02/13/18 4:30 PM) Eosinophils [0.0-4.0 %] 3.9 % 3.7 % 3.9 % (02/21/18 6:27 AM) (02/20/18 4:35 AM) (02/18/18 4:29 AM) Globulin [2.7-4.2 g/dL] 5.3 g/dL 4.7 g/dL *HI* *HI* (02/14/18 3:55 AM) (02/13/18 4:30 PM) Glucose Lvl [70-99 mg/dL] 79 mg/dL 89 mg/dL 85 mg/dL (02/21/18 6:27 AM) (02/20/18 4:35 AM) (02/18/18 4:29 AM) Hct [42.0-54.0 %] 29.3 % 28.6 % 27.5 % *LOW* *LOW* *LOW* (02/21/18 6:27 AM) (02/20/18 4:35 AM) (02/18/18 4:29 AM) Hgb [14.0-18.0 g/dL] 9.4 g/dL 9.0 g/dL 8.9 g/dL *LOW* *LOW* *LOW* (02/21/18 6:27 AM) (02/20/18 4:35 AM) (02/18/18 4:29 AM) INR [0.85-1.17] 1.04 (02/14/18 3:55 AM) Potassium Lvl [3.5-5.1 3.7 mEq/L 3.6 mEq/L 3.4 mEq/L mEq/L] (02/21/18 6:27 AM) (02/20/18 4:35 AM) *LOW* (02/18/18 4:29 AM) Lactic Acid Lvl [0.5-2.2 1.3 mMol/L 2.1 mMol/L mMol/L] (02/13/18 9:06 PM) (02/13/18 4:30 PM) Lymphocytes [20.0-40.0 %] 19.9 % 18.5 % 23.6 % *LOW* *LOW* (02/18/18 4:29 AM) (02/21/18 6:27 AM) (02/20/18 4:35 AM) MCH [27.0-31.0 pg] 25.7 pg 25.7 pg 26.1 pg *LOW* *LOW* *LOW* (02/21/18 6:27 AM) (02/20/18 4:35 AM) (02/18/18 4:29 AM) MCHC [32.0-36.0 g/dL] 32.0 g/dL 31.7 g/dL 32.4 g/dL (02/21/18 6:27 AM) *LOW* (02/18/18 4:29 AM) (02/20/18 4:35 AM) MCV [80.0-94.0 fL] 80.4 fL 81.1 fL 80.5 fL (02/21/18 6:27 AM) (02/20/18 4:35 AM) (02/18/18 4:29 AM) Monocytes [2.0-12.0 %] 8.8 % 9.8 % 10.1 % (02/21/18 6:27 AM) (02/20/18 4:35 AM) (02/18/18 4:29 AM) MPV [7.4-10.4 fL] 8.2 fL 7.8 fL 8.0 fL (02/21/18 6:27 AM) (02/20/18 4:35 AM) (02/18/18 4:29 AM) Sodium Lvl [135-145 mEq/L] 144 mEq/L 144 mEq/L 144 mEq/L (02/21/18 6:27 AM) (02/20/18 4:35 AM) (02/18/18 4:29 AM) Phosphorus [2.5-4.5 mg/dL] 2.9 mg/dL (02/20/18 4:35 AM) Platelet [133-450 K/CMM] 336 K/CMM 294 K/CMM 275 K/CMM (02/21/18 6:27 AM) (02/20/18 4:35 AM) (02/18/18 4:29 AM) Segs [45.0-75.0 %] 66.4 % 67.0 % 61.7 % (02/21/18 6:27 AM) (02/20/18 4:35 AM) (02/18/18 4:29 AM) Total Protein [6.4-8.4 8.1 g/dL 7.6 g/dL g/dL] (02/14/18 3:55 AM) (02/13/18 4:30 PM) PT [12.0-14.7 seconds] 13.4 seconds (02/14/18 3:55 AM) PTT [22.9-35.8 seconds] 38.4 seconds 35.4 seconds *HI* (02/14/18 3:55 AM) (02/15/18 4:11 PM) RBC [4.70-6.10 M/CMM] 3.65 M/CMM 3.53 M/CMM 3.42 M/CMM *LOW* *LOW* *LOW* (02/21/18 6:27 AM) (02/20/18 4:35 AM) (02/18/18 4:29 AM) RDW [11.5-14.5 %] 17.6 % 17.5 % 17.0 % *HI* *HI* *HI* (02/21/18 6:27 AM) (02/20/18 4:35 AM) (02/18/18 4:29 AM) Sed Rate [0-15 mm/hr] 60 mm/hr *HI* (02/13/18 9:06 PM) Bili Total [0.2-1.3 mg/dL] 0.2 mg/dL 0.4 mg/dL (02/14/18 3:55 AM) (02/13/18 4:30 PM) Troponin-I [0.00-0.40 <0.02 ng/mL ng/mL] (02/13/18 4:30 PM) UA Bili [Negative] Negative *NA* (02/13/18 7:00 PM) UA Blood [Negative] Negative (02/13/18 7:00 PM) UA Color [Yellow] Yellow *NA* (02/13/18 7:00 PM) UA Glucose [Negative] Negative *NA* (02/13/18 7:00 PM) UA Hyal Cast [0-2 /LPF] 4 /LPF *HI* (02/13/18 7:00 PM) UA Ketones Negative *NA* (02/13/18 7:00 PM) UA Leuk Est [Negative] Negative (02/13/18 7:00 PM) UA Mucus [None Seen /LPF] Many /LPF *ABN* (02/13/18 7:00 PM) UA Nitrite [Negative] Negative (02/13/18 7:00 PM) UA pH [5.0-8.0] 6.0 (02/13/18 7:00 PM) UA Protein [Negative] Negative (02/13/18 7:00 PM) UA Spec Grav [<=1.030] 1.013 (02/13/18 7:00 PM) UA Sq Epi [Few /LPF] Occasional /LPF *NA* (02/13/18 7:00 PM) UA Turbidity [Clear] Clear (02/13/18 7:00 PM) UA Urobilinogen [0.1-1.0 <=1.0 mg/dL mg/dL] *NA* (02/13/18 7:00 PM) UA WBC [0-5 /HPF] 1 /HPF (02/13/18 7:00 PM) WBC [3.7-10.4 K/CMM] 6.8 K/CMM 6.9 K/CMM 6.9 K/CMM (02/21/18 6:27 AM) (02/20/18 4:35 AM) (02/18/18 4:29 AM) 1Result Comment: The eGFR is calculated using the CKD-EPI formula. In most young , healthy individualsthe eGFR will be >90 mL/min/1.73m2. The eGFR declines with age. An eGFR of 60-89 may be normal insome populations, particularly the elderly, for whom the CKD-EPI formula has not been extensively validated. Use of the eGFR is not recommended in the following populations: Individuals with unstable creatinine concentrations, including patients and those with serious co-morbid conditions. Patients with extremes in muscle mass or diet. The data above are obtained from the National Kidney Disease Education Program ( NKDEP) which additionally recommends that when the eGFR is used in patients with extremes of body mass index for purposesof drug dosing, the eGFR should be multiplied by the estimated BMI.2Result Comment: The eGFR is calculated using the CKD-EPI formula. In most young, healthy individualsthe eGFR will be >90 mL/min/1.73m2. The eGFR declines with age. An eGFR of 60-89 may be normal insome populations, particularly the elderly, for whom the CKD-EPI formula has not been extensively validated. Use of the eGFR is not recommended in the following populations: Individuals with unstable creatinine concentrations, including patients and those with serious co-morbid conditions. Patients with extremes in muscle mass or diet. The data above are obtained from the National Kidney Disease Education Program ( NKDEP) which additionally recommends that when the eGFR is used in patients with extremes of body mass index for purposesof drug dosing, the eGFR should be multiplied by the estimated BMI.3Result Comment: The eGFR is calculated using the CKD-EPI formula. In most young, healthy individualsthe eGFR will be >90 mL/min/1.73m2. The eGFR declines with age. An eGFR of 60-89 may be normal insome populations, particularly the elderly, for whom the CKD-EPI formula has not been extensively validated. Use of the eGFR is not recommended in the following populations: Individuals with unstable creatinine concentrations, including patients and those with serious co-morbid conditions. Patients with extremes in muscle mass or diet. The data above are obtained from the National Kidney Disease Education Program ( NKDEP) which additionally recommends that when the eGFR is used in patients with extremes of body mass index for purposesof drug dosing, the eGFR should be multiplied by the estimated BMI.4Result Comment: 02/14/2018 04:40 [id number] Blood available, notified HOPE VALENTINA at 02/14/2018 04:40 by RAFA.Microbiology Reports TEST:Culture: Anaerobic STATUS:Auth (Verified) BODY SITE:Chest SOURCE:Abscess COLLECTED DATE/TIME:02/14/18 4:47 PMFINAL REPORTNo Anaerobes IsolatedTEST: Culture: Aspirate/Body Fluid/Tissue STATUS:Auth (Verified) BODY SITE:Chest SOURCE:Drainage COLLECTED DATE/TIME:02/14/18 4:47 PMFINAL REPORTNo GrowthSTAIN REPORT *Rare WBC's No Organisms SeenTEST:Culture: Anaerobic STATUS:Auth (Verified) BODY SITE:Chest SOURCE:Tissue COLLECTED DATE/TIME:02/14/18 4:40 PMFINAL REPORTNo Anaerobes IsolatedTEST: Culture: Aspirate/Body Fluid/Tissue STATUS:Auth (Verified) BODY SITE:Chest SOURCE:Tissue COLLECTED DATE/TIME:02/14/18 4:40 PMFINAL REPORTNo GrowthSTAIN REPORT *Rare WBC's No Organisms Seen Immunizations No data available for this section [...] 59; entered on: 08/16/18 Assessment and Plan Extracted from: Title: Clinical Document Author: Nghia Oneal MD Date: 02/21/18 INFECTIOUS DISEASES PROGRESS NOTE Attending: Milton Mcfarland MD Service: Internal Medicine Code status: Full Code Reason for Admission: SOB, TACHYCARDIA Working DRG: Isolation: No Isolation/Standard Precautions Consulting Physicians: Chicho Sullivan MD Office: Service: Thoracic/Cardiac Surgery, General Surgery Hector Ahuja MD Office: Service: Cardiology Nghia Oneal MD Office: Service: Infectious Disease HISTORY OF PRESENT ILLNESS 62-year-old male with past medical history of hypertemnsion, hyperlipidemia, multi-vessel CAD s/p CABG X 4 (at [facility]) who was admitted to [facility] on 02/13/2018 with serosanguinous drainage from his sternal suture line, shortness of breath, anorexia, tachycardia, requirimng multiple post surgery hospitalizations. He had developed in recent days prior to admission , increaded edema and erythema associated with his suture line. HOSPITAL COURSE Blood cultures were collected, CXR revealed no acute cardiopulmonary disease, CT chest revealed findings consistent with osteomyelitis. He was started on intravenous ceftriaxone and vancomycin. On the wound was debrided and wound vac applied by Dr Sullivan (at which time purulence was encountered). REVIEW OF SYSTEMS Constitutional: fever, chills, sweats, Weakness, Fatigue. Eye: No known recent visual problem, No icterus, No double vision, No visual disturbances. Nose/Mouth/Throat: No nasal congestion, No sore throat. Respiratory: shortness of breath, no cough, No sputum production, No hemoptysis. Cardiovascular: chest pain, No palpitations, no tachycardia.post op CASBG with suture line drainage and associated edema/erythema Gastrointestinal: no abdominal pain, no nausea, no Vomiting, no Diarrhea, no Gastroparesis Genitourinary: no CVA tenderness Hematology/Lymphatics: No bruising tendency, No bleeding tendency, No swollen lymph glands. Endocrine: No excessive thirst, No cold intolerance, No heat intolerance. Musculoskeletal: no peripheral vascular disease. leg abscess Integumentary: No rash, No pruritus, No abrasions, No breakdown. Neurologic: no headache, no numbness, weakness. PERFORMANCE MEASURES: 1. Influenza vaccine not needed, as vaccination already received 2. Pneumococcal vaccine already received. No vaccination needed. 3. Tobacco use negative. No counseling or intervention needed. 4. Body Mass Index: 24.72 m2 Counseling, nutritional evaluation not necessary 5. Care plan reviewed. The patient is full code, without advance directive, and wishes no changes. 6. Medications reviewed daily. PAST MEDICAL HISTORY Hypertension Hyperlipidemia Coronary artery disease PAST SURGICAL HISTORY CABG x 4 - Coronary artery bypass grafts x 4 FAMILY HISTORY Mother: Heart failure Brother: Cancer, Lung SOCIAL HISTORY Alcohol Details: Past Tobacco Details: Use: Former smoker. ALLERGIES Allergies: iodine, penicillins MEDICATIONS Scheduled Meds (16): 02/14/18 DULoxetine 30 mg PO Daily 02/13/18 atorvastatin 80 mg PO Bedtime 02/13/18 busPIRone 10 mg PO BID 02/18/18 clopidogrel (Plavix) 75 mg PO Daily 02/15/18 docusate (docusate sodium 100 mg oral capsule) 100 mg PO BID 02/15/18 enoxaparin 40 mg SUB-Q [id number] 02/18/18 ferrous sulfate 325 mg PO Daily 02/20/18 lisinopril 5 mg PO Daily 02/14/18 metoprolol (Toprol-XL 25 mg oral tablet, extended release) 25 mg PO Daily 02/14/18 mirtazapine 15 mg PO Bedtime 02/14/18 multivitamin with minerals 1 tab PO Daily 02/18/18 nutritional supplement (Beneprotein 7 gm pkt) 1 pkt PO BID-Meals 02/14/18 thiamine 100 mg PO Daily 02/13/18 trazodone (trazodone 50 mg oral tablet) 100 mg PO Bedtime 02/16/18 vancomycin 1.5 gm IVPB [id number] 166.67 ml/hr 02/18/18 zinc sulfate 220 mg PO Daily PHYSICAL EXAM Vitals Tmp(F) Pulse BP RR SpO2 FIO2 02/21 10:48 98.3 68 117/72 18 90 --- 02/21 07:47 97.7 76 134/86 18 94 --- 02/21 04:00 98.3 78 115/76 18 96 21% 02/21 00:00 98.0 73 102/65 18 95 21% 02/20 20:00 98.5 79 131/81 20 95 21% 24 Hr Tmax: 98.5F (36.94c) at 02/20 20:00 Vital Signs are the last 5 in the past 48 hours. General: awake and responsive to question Eye: Normal conjunctiva (No injection) HEENT: Normocephalic, atraumatic dry mucosa Neck: Supple, Non-tender, No carotid bruit, No lymphadenopathy, No thyromegaly. Respiratory: Lungs decreased breath sounds bases Cardiovascular: Distant, Normal rate, Regular rhythm, No murmur, No gallop Sternum stable wound vac operational Gastrointestinal: Soft, Non-tender, Distended, Normal bowel sounds, Genitourinary: No CVA tenderness Lymphatics: No lymphadenopathy neck, axilla, groin. Musculoskeletal Normal passive range of motion Integumentary: Warm, Dry, [place], No rash Neurologic: CN 2-12 intact, awake and alert [facility] BUN: 9 mg/dL (02/20/18) Hct: 28.6 % Low (02/20/18) Hgb: 9 g/dL Low (02/20/18) MCH: 25.7 pg Low (02/20/18) MCHC: 31.7 g/dL Low (02/20/18) MCV: 81.1 fL (02/20/18) MPV: 7.8 fL (02/20/18) Platelet: 294 K/CMM (02/20/18) RBC: 3.53 M/CMM Low (02/20/18) RDW: 17.5 % High (02/20/18) WBC: 6.9 K/CMM (02/20/18) WBC: 6.9 K/CMM (02/18/18) WBC: 6.9 K/CMM (02/18/18) WBC: 7.1 K/CMM (02/17/18) WBC: 9 K/CMM (02/16/18) WBC: 5.5 K/CMM (02/15/18) WBC: 8.9 K/CMM (02/14/18) WBC: 9 K/CMM (02/13/18) IMAGING CXR 02/13/2018 no acute cardiopulmonary disease CT CHEST 02/13/2018 findings consistent with osteomyelitis of the sternum MICROBIOLOGY BLOOD 02/13/2018 negative BODY FLUID (STERNAL WOUND) 02/14/2018 negative IMPRESSION Sternal wound Osteomyelitis sternum Hypertension CAD s/p CABG Hyperlipidemia RECOMMENDATIONS Intravenous vancomycin day 9, dosing adjusted Intravenous ceftriaxone day 9 Follow up blood cultures as well as wound cultures Wound care with wound vac Post op removal of infected sternal wires, debridement, wound vac per Dr Sullivan on 02/14/2018 Will need a prolonged courase of IV antibiotics (6 weeks), outpatient IV antibiotics can begin anytime CBC BMP ESR CRP LFTs Extracted from: Title: Discharge Summary * Author: Beth Jama MD Date: 02/21/18 Discharge Plan Discharge Summary Plan Discharge Status: improved. Extracted from: Title: Cardiology Consultation Author: Hector Ahuja MD Date: 02/14/18 [facility] Cardiology Elisha Hendrix Schutt, [place], [place] [address] [place] [address] Initial Cardiology Consultation Referring physician: Dr. Mcfarland CC: SOB, fatigue, tachycardia HPI: is a very pleasant man who is seen on 7E. He was admitted directly from clinic yesterday. His sister is not here with him today. He is actually from [place], [place]. He is single and has a brigida wn daughter that lives in [place]. He has 5 sisters and one brother that all live in the [facility] area. He works in [employer] and previously worked for [employer]. He has ana lly had a rough year. He has had progressive fatigue and dyspnea. He was diagnosed with severe multivessel coronary disease in the summer of this year. He also tells me that he had some kind of "hole in his heart". He underwent four-vessel CABG at the end of October 2017 at [facility]. He has failed to thrive since that time. His breathing is continued to decline. He has been admitted several times to other hospitals since his CABG. Apparently, workup has been relatively negative. He is concerned about his sternotomy being infected. It is not healing well. His energy levels are terrible. He bec omes breathless simply with talking. He is anorexic and has lost 70 pounds. He does have some discomfort in his chest with exertion. Blood pressures have been on the lower side. We directly admitted him and he has undergone CT Chest and CT Surgery evaluation. He has been found to have sternal wound infection and is being scheduled for the OR later today for wire removal. He is compliant with his cardiac program without apparent medication intolerance. He previously used tobacco products but quit in the summer 2017. Past Medical History: See problem list Surgical History:CABG x 4 - Coronary artery bypass grafts x 4 Family History: Mother: Heart failure Brother: Cancer, Lung Social History: Alcohol Details: Past Tobacco Details: Use: Former smoker. Tobacco smoke exposure: None. Did the Patient Smoke Cigarettes Anytime During the Last 365 Days? No. Cessation Counseling Provided? No. Review of Systems: all systems reviewed and negative except as mentioned in the HPI. Objective:Allergies: iodine, penicillins Home Meds: reviewed Vitals Tmp(F) Pulse BP RR SpO2 FIO2 02/14 08:05 97.5 84 112/72 18 94 --- 02/14 06:40 97.7 80 128/78 -- 95 --- 02/14 01:26 98.7 83 100/71 -- 98 --- 02/13 21:32 98.5 84 102/67 -- 97 --- 02/13 16:00 98 85 106/72 18 94 --- 24 Hr Tmax: 98.7F (37.06c) at 02/14 01:26 Vital Signs are the last 5 in the past 48 hours. GENERAL: Pleasant, becomes dyspneic with talking. EYES: Extra ocular movements are intact. There is no lid lag. Sclera is anicteric. ENT: Oropharynx is clear. Dentition is within normal limits. NECK: JVP <8 cm H20. No carotid bruits. HEART: Purulent drainage from sternotomy. The heart is distant. Borderline tachycardia. No overt murmurs. The PMI is nonpalpable. LUNGS: Coarse breath sounds. ABDOMEN: The abdomen is soft, nontender, and nondistended. The abdominal aorta is nonpalpable. EXTREMITIES: No clubbing, cyanosis, or edema. PULSES: Right radial pulse is significantly diminished. Left radial pulse 2+. NEUROLOGIC: The patient was oriented to person, place, and time. No overt neurologic deficits were detected. PSYCH: Normal judgment and insight, mood is appropriate. Scheduled Meds (10): 02/14/18 DULoxetine 30 mg PO Daily 02/13/18 atorvastatin 80 mg PO Bedtime 02/13/18 busPIRone 10 mg PO BID 02/13/18 cefTRIAXone + Sodium Chloride 0.9% IV 100 mL (Rocephin + Sodium Chloride 0.9% IV 100 mL) 1 gm IVPB [id number] 200 ml/hr 02/13/18 (Suspended) clopidogrel (Plavix) 75 mg PO Daily 02/14/18 metoprolol (Toprol-XL 25 mg oral tablet, extended release) 25 mg PO Daily 02/14/18 multivitamin with minerals 1 tab PO Daily 02/14/18 thiamine 100 mg PO Daily 02/13/18 trazodone (trazodone 50 mg oral tablet) 100 mg PO Bedtime 02/13/18 vancomycin + Sodium Chloride 0.9% IV 250 mL 1,000 mg IVPB [id number] 250 ml/hr Continuous Infusions (2): 02/13/18 Sodium Chloride 0.9% IV 1,000 mL (NS 1,000 mL) 1,000 mL 75 ml/hr 02/13/18 Sodium Chloride 0.9% IV 250 mL (Sodium Chloride 0.9% (titrate) 250 mL ) 250 mL To prime line and flush remaining blood products. I&O Record In Out Bal 02/14 24hr Tot 229 0 229 02/13 24hr Tot 440 0 440 Labs (Last four charted values) WBC 8.9 (FEB 14) 9.0 (FEB 13) Hgb L 11.9 (FEB 14) L 11.4 (FEB 13) Hct L 36.0 (FEB 14) L 35.5 (FEB 13) Plt 415 (FEB 14) 397 (FEB 13) Na 141 (FEB 14) 139 (FEB 13) K 3.9 (FEB 14) L 3.3 (FEB 13) CO2 25 (FEB 14) 26 (FEB 13) Cl 106 (FEB 14) 104 (FEB 13) Cr 0.88 (FEB 14) 1.01 (FEB 13) BUN 12 (FEB 14) 10 (FEB 13) Glucose Random 88 (FEB 14) 97 (FEB 13) Ca 8.8 (FEB 14) 8.7 (FEB 13) PT 13.4 (FEB 14) INR 1.04 (FEB 14) PTT 35.4 (FEB 14) Troponin <0.02 (FEB 13) Total CK 26 (FEB 13) CT Chest: reviewed Assessment: 1. Sternal wound infection 2. Malnourished/deconditioned status 3. History of four-vessel CABG on November 02, 2017. Performed at [facility]. 4. Hypertension 5. Hyperlipidemia 6. Extensive prior tobacco abuse Plan: Patient is tentatively being scheduled for sternal wire removal later today by Dr. Sullivan. Can hold clopidogrel for surgery. Otherwise, c/w home cardiac program. Will follow up echo. Thank you for involving me in the care of this very nice patient. Please call with any questions or concerns. Sincerely, Hector Ahuja M.D. Interventional Cardiology [email or web address] Extracted from: Title: History and Physical Author: Milton Mcfarland MD Date: 02/13/18 #Sternal wound infection #CAD s/p 4v CABG 10/2017 #SOB #Malnutrition #Deconditioning #HTN #HLD - start vanc, rocephin - blood cultures - CV surgery consult to assess wound - CT chest to assess lung parenchyma, assess for abscess/medistinitis - reportedly had recent V/Q which was negative for PE - will check D-dimer - request records from [facility] - Dr. Ahuja consulted - TTE ordered - resumehome meds - nutrition consult, PT/OT eval DVT prophylaxis: heparin Disposition:>2 midnights Local infection of wound(T14.8XXA) Ordered: Admit/Condition, 02/13/18 14:53:00 [employer] DEV[employer], Status: Inpatient, Telemetry Capable Location, Expected LOS: 2 Midnights, Milton Mcfarland MD, it Review/ Approve Yes, Isolation: No Isolation/Standard Precautions, Shortness of breath | Local infection of wound Shortness of breath(R06.02) Ordered: Admit/Condition, 02/13/18 14:53:00 [employer] DEVELOPER, Status: Inpatient, Telemetry Capable Location, Expected LOS: 2 Midnights, Milton Mcfarland MD, Admit Review/ Approve Yes, Isolation: No Isolation/Standard Precautions, Shortness of breath | Local infection of wound
--- OUTSIDE RECORDS SUMMARY | 2018-09-24 23:13 | XMS REPORT | Summary of Care ---
:1955 Author Organization 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) - Personal history of nicotine dependence (Final) - Family history of ischemic heart disease and other diseases of the circulatory system (Final) - Discharge Disposition: Acute Care Attending Physician: Brigido Medina MD Vital Signs Most recent to oldest 1 2 3 [Reference Range]: Height 185.42 cm (02/27/18 9:15 PM) Temperature Oral [96.4-99.1 98.0 DegF 98.0 DegF 97.9 DegF DegF] (02/28/18 2:15 AM) (02/28/18 1:27 AM) (02/27/18 11:30 PM) Blood Pressure 146/91 mmHg 131/89 mmHg 136/92 mmHg [90-140/60-90 mmHg] *HI* (02/28/18 1:45 AM) (02/28/18 1:27 AM) (02/28/18 2:15 AM) Respiratory Rate [14-20 15 BRMIN 11 BRMIN 13 BRMIN BRMIN] (02/28/18 2:15 AM) *LOW* *LOW* (02/28/18 1:45 AM) (02/28/18 1:27 AM) Peripheral Pulse Rate 77 bpm [60-100 bpm] (02/27/18 9:15 PM) Weight 83.182 kg (02/27/18 9:15 PM) Body Mass Index 24.19 m2 (02/27/18 9:15 PM) Problem List Condition Effective Dates Status Health Status Informant CAD (coronary artery Active disease)(Confirmed) HLD (hyperlipidemia)(Confirmed) Active HTN (hypertension)(Confirmed) Active Allergies, Adverse Reactions, Alerts Substance Reaction Severity Status penicillins Active NKFA Active iodine1 contrast dye Active 1hives Medications Benadryl 25 mg, 0.5 mL, Route: IVP, Drug form: INJ, ONCE, Dosing Weight 83.182, kg, Priority: STAT, 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, 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/28/18 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3 K/CMM (02/27/18 10:37 PM) Basophils # [0.0-0.2 K/CMM] 0.1 K/CMM (02/27/18 10:37 PM) UA Gran Cast [None Seen /LPF] 6-10 /LPF *ABN* (02/27/18 10:37 PM) proBNP [0-125 pg/mL] 2678 pg/mL *HI* (02/27/18 10:37 PM) eGFR 97 mL/min/1.73m2 1 *NA* (02/27/18 10:37 PM) Influ A [Negative] Negative (02/27/18 10:37 PM) Influ B [Negative] Negative (02/27/18 10:37 PM) AGAP [10.0-20.0 mEq/L] 12.6 mEq/L (02/27/18 10:37 PM) Basophils [0.0-1.0 %] 1.2 % *HI* (02/27/18 10:37 PM) BUN [7-22 mg/dL] 8 mg/dL (02/27/18 10:37 PM) Calcium Lvl [8.5-10.5 mg/dL] 8.1 mg/dL *LOW* (02/27/18 10:37 PM) Chloride Lvl [95-109 mEq/L] 108 mEq/L (02/27/18 10:37 PM) CO2 [24-32 mEq/L] 25 mEq/L (02/27/18 10:37 PM) Creatinine Lvl [0.50-1.40 mg/dL] 0.80 mg/dL (02/27/18 10:37 PM) Eosinophils [0.0-4.0 %] 4.0 % (02/27/18 10:37 PM) Glucose Lvl [70-99 mg/dL] 88 mg/dL (02/27/18 10:37 PM) Hct [42.0-54.0 %] 27.5 % *LOW* (02/27/18 10:37 PM) Hgb [14.0-18.0 g/dL] 9.0 g/dL *LOW* (02/27/18 10:37 PM) Potassium Lvl [3.5-5.1 mEq/L] 3.6 mEq/L (02/27/18 10:37 PM) Lymphocytes [20.0-40.0 %] 23.7 % (02/27/18 10:37 PM) MCH [27.0-31.0 pg] 25.4 pg *LOW* (02/27/18 10:37 PM) MCHC [32.0-36.0 g/dL] 32.5 g/dL (02/27/18 10:37 PM) MCV [80.0-94.0 fL] 78.1 fL *LOW* (02/27/18 10:37 PM) Microcyte [None Seen] 1+ *ABN* (02/27/18 10:37 PM) Monocytes [2.0-12.0 %] 8.8 % (02/27/18 10:37 PM) MPV [7.4-10.4 fL] 8.2 fL (02/27/18 10:37 PM) Sodium Lvl [135-145 mEq/L] 142 mEq/L (02/27/18 10:37 PM) Platelet [133-450 K/CMM] 400 K/CMM (02/27/18 10:37 PM) Segs [45.0-75.0 %] 62.3 % (02/27/18 10:37 PM) RBC [4.70-6.10 M/CMM] 3.53 M/CMM *LOW* (02/27/18 10:37 PM) RDW [11.5-14.5 %] 17.8 % *HI* (02/27/18 10:37 PM) Troponin-I [0.00-0.40 ng/mL] <0.02 ng/mL (02/27/18 10:37 PM) UA Amorph Atiya [None Seen /HPF] Occasional /HPF *NA* (02/27/18 10:37 PM) UA Bacteria [None Seen /HPF] Occasional /HPF *NA* (02/27/18 10:37 PM) UA Bili [Negative] Negative *NA* (02/27/18 10:37 PM) UA Blood [Negative] Negative (02/27/18 10:37 PM) UA Color [Yellow] Yellow *NA* (02/27/18 10:37 PM) UA Glucose [Negative] Negative *NA* (02/27/18 10:37 PM) UA Ketones [Negative] Negative *NA* (02/27/18 10:37 PM) UA Leuk Est [Negative] Negative (02/27/18 10:37 PM) UA Mucus [None Seen /LPF] Few /LPF *NA* (02/27/18 10:37 PM) UA Nitrite [Negative] Negative (02/27/18 10:37 PM) UA pH [5.0-8.0] 6.0 (02/27/18 10:37 PM) UA Protein [Negative] Negative (02/27/18 10:37 PM) UA RBC [0-2 /HPF] 1 /HPF (02/27/18 10:37 PM) UA Spec Grav [<=1.030] 1.009 (02/27/18 10:37 PM) UA Sq Epi [Few /LPF] Occasional /LPF *NA* (02/27/18 10:37 PM) UA Turbidity [Clear] Moderate *ABN* (02/27/18 10:37 PM) UA Urobilinogen [0.1-1.0 mg/dL] <=1.0 mg/dL *NA* (02/27/18 10:37 PM) UA WBC [0-5 /HPF] 1 /HPF (02/27/18 10:37 PM) WBC [3.7-10.4 K/CMM] 7.8 K/CMM (02/27/18 10:37 PM) 1Result Comment: The eGFR is calculated using [...] eGFR should be multiplied by the estimated BMI. Immunizations No data available for this section [...]
--- OUTSIDE RECORDS SUMMARY | 2018-09-24 23:13 | XMS REPORT | Summary of Care ---
:1955 Author Organization [facility] Address [address] [place] [phone]- Encounter HQ Anson_vikash(RICARDO) [id number] Date(s): 06/02/18 - 06/03/[address] [address]- Discharge Disposition: Home or Self Care Attending Physician: Timothy Kam DO Admitting Physician: Timothy Kam DO Vital Signs Most recent to oldest [Reference 1 2 3 Range]: Height 185.4 cm 185.42 cm (06/03/18 9:00 AM) (06/02/18 6:24 PM) Temperature Oral [96.4-99.1 98.2 DegF 97.8 DegF 98.1 DegF DegF] (06/03/18 3:45 PM) (06/03/18 1:45 PM) (06/03/18 7:15 AM) Blood Pressure [90-140/60-90 127/84 mmHg 137/80 mmHg 140/90 mmHg mmHg] (06/03/18 3:45 PM) (06/03/18 2:45 PM) (06/03/18 2:15 PM) Respiratory Rate [14-20 BRMIN] 18 BRMIN 16 BRMIN 16 BRMIN (06/03/18 3:45 PM) (06/03/18 2:45 PM) (06/03/18 2:15 PM) Peripheral Pulse Rate [60-100 64 bpm 69 bpm 64 bpm bpm] (06/03/18 3:45 PM) (06/03/18 2:45 PM) (06/03/18 2:15 PM) Weight 95.909 kg 96.108 kg 96.8 kg (06/03/18 9:00 AM) (06/02/18 6:24 PM) (06/02/18 3:36 PM) Body Mass Index 27.9 m2 27.95 m2 (06/03/18 9:00 AM) (06/02/18 6:24 PM) Problem List Condition Effective Dates Status Health Status Informant CAD (coronary artery Active disease)(Confirmed) HLD (hyperlipidemia)(Confirmed) Active HTN (hypertension)(Confirmed) Active Allergies, Adverse Reactions, Alerts Substance Reaction Severity Status penicillins Active penicillin1 Active iodine2 Active [id number] Medications acetaminophen 650 mg, 2 tab, Route: PO, Drug form: TAB, Q4H, Dosing Weight 96.8, kg, PRN Pain 1-3/Temp > 100.4 F, Start date: 06/02/18 17:10:00 CDT, 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, Stop date: 07/02/18 17:09:00 CDT Notes: Do not exceed 4 gm/day. (Same as: Tylenol) Start Date: 06/02/18 Stop Date: 06/03/18 Status: Discontinuedaspirin 81 mg tablet, enteric coated 81 mg=1 tab, PO, Daily Start Date: 06/02/18 Status: Orderedaspirin 81 mg tablet, enteric coated 81 mg, 1 tab, Route: PO, Drug form: ECTAB, Daily, Dosing Weight 96.108, kg, Start date: 06/03/18 9:00:00 CDT, 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, Stop date: 07/02/18 9:00:00 CDT Notes: Do not crush or chew.(Same As: Ecotrin) Start Date: 06/03/18 Stop Date: 06/03/18 Status: Discontinuedatorvastatin 80 mg, 2 tab, Route: PO, Drug form: TAB, Bedtime, Dosing Weight 96.108, kg, Start date: 06/03/18 21:00:00 CDT, 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, Stop date: 07/02/18 21:00: 00 CDT Notes: (Same as: Lipitor) Start Date: 06/03/18 Stop Date: 06/03/18 Status: CanceledbusPIRone 10 mg, 1 tab, Route: PO, Drug form: TAB, BID, Dosing Weight 96.108, kg, Start date: 06/03/18 9:00:00CDT, 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, Stop date: 07/02/18 17:00:00 CDT Notes: (Same As: BuSpar) Start Date: 06/03/18 Stop Date: 06/03/18 Status: Discontinuedcefepime + Sodium Chloride 0.9% IV 100 mL 1 gm, Route: IVPB, ABXQ8H, Dosing Weight 96.108, kg, (CrCl >/=50 ml/min), Start date: 06/02/18 19:00:00 CDT, Duration: 14 day, Stop date: 06/16/18 11:00: 00 CDT, ABX Indication: Bone/Joint Infection Notes: (Same As: Maxipime) MEDICATION WASTE Product Size: 1000 mgProduct Wasted: ___ mg Start Date: 06/02/18 Stop Date: 06/03/18 Status: Discontinuedclopidogrel 75 mg, 1 tab, Route: PO, Drug form: TAB, Daily, Dosing Weight 96.108, kg, Start date: 06/03/18 9:00:00 CDT, 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, Stop date: 07/02/18 9:00:00 CDT Notes: (Same As: Plavix) Start Date: 06/03/18 Stop Date: 06/03/18 Status: DiscontinuedColace 100 mg oral capsule 100 mg, 1 cap, Route: PO, Drug form: CAP, Daily, Dosing Weight 96.108, kg, Start date: 06/03/18 9:00:00 CDT, 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, Stop date: 07/02/18 9:00:00 CDT Notes: (Same as: Colace) (Do Not Crush) Start Date: 06/03/18 Stop Date: 06/03/18 Status: DiscontinuedColace 100 mg oral capsule 100 mg=1 cap, PO, Daily Start Date: 06/02/18 Status: OrderedDextrose 50% Syringe 25 gm, 50 mL, Route: IVP, Drug Form: INJ, Dosing Weight 96.8, kg, PRN, PRN Blood Glucose Results, Start date: 06/02/18 17:10:00 CDT, 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, Stop date: 07/02/18 17:09:00 CDT Start Date: 06/02/18 Stop Date: 06/03/18 Status: DiscontinuedDextrose 50% Syringe 12.5 gm, 25 mL, Route: IVP, Drug Form: INJ, Dosing Weight 96.8, kg, PRN, PRN Blood Glucose Results, Start date: 06/02/18 17:10:00 CDT, 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, Stop date: 07/02/18 17:09:00 CDT Start Date: 06/02/18 Stop Date: 06/03/18 Status: Discontinueddoxycycline + Sodium Chloride 0.9% IV 25 mL 500 mg, Route: INTRAPLEURAL, Drug form: PDR/INJ, ONCE, Dosing Weight 96.108, kg , Start date: 06/03/18 10:10:00 CDT, Stop date: 06/03/18 10:10:00 CDT Notes: (Same as: Vibramycin) Start Date: 06/03/18 Stop Date: 06/03/18 Status: Completeddoxycycline hyclate 100 mg oral tablet 100 mg=1 tab, PO, Q12H, X 14 day, # 28 tab, 0 Refill(s), Pharmacy: [facility] [id number] Start Date: 06/03/18 Stop Date: 06/17/18 Status: OrderedDULoxetine 30 mg, 1 cap, Route: PO, Drug form: DRC, Daily, Dosing Weight 96.108, kg, Start date: 06/03/18 9:00:00 CDT, 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, Stop date: 07/02/18 9:00:00 CDT Notes: (Same as: Cymbalta) (Do Not Crush) Start Date: 06/03/18 Stop Date: 06/03/18 Status: DiscontinuedDULoxetine 30 mg oral delayed release capsule 30 mg=1 cap, PO, Daily Start Date: 06/02/18 Status: Orderedglucagon 1 mg, Route: IM, Drug form: PDR/INJ, PRN, Dosing Weight 96.8, kg, PRN Blood Glucose Results, Start date: 06/02/18 17:10:00 CDT, 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, Stop date : 07/02/18 17:09:00 CDT Start Date: 06/02/18 Stop Date: 06/03/18 Status: Discontinuedheparin 5,000 unit, 1 mL, Route: SUB-Q, Drug form: INJ, Q12H, Dosing Weight 96.108, kg, Start date: 199:00:00 CDT, 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, Stop date: 07/02/18 21:00:00 CDT Notes: porcine heparin Start Date: 06/03/18 Stop Date: 06/03/18 Status: DiscontinuedhydrALAZINE 10 mg, 0.5 mL, Route: IVP, Drug form: INJ, Q4H, Dosing Weight 96.108, kg, PRN Other -See Comment, Start date: 06/02/18 21:32:00 CDT, 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, Stop date: 07/02/18 21:31:00 CDT, SBP>160 Notes: (Same as: Apresoline)Push over 5 minutes Start Date: 06/02/18 Stop Date: 06/03/18 Status: Discontinuedlisinopril 2.5 mg, 0.5 tab, Route: PO, Drug form: TAB, Daily, Dosing Weight 96.108, kg, Start date: 06/03/18 9:00:00 CDT, 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, Stop date: 07/02/18 9:00:00 CDT Notes: (Same as: Prinivil, Zestril) Start Date: 06/03/18 Stop Date: 06/03/18 Status: Discontinuedmelatonin 3 mg, 1 tab, Route: PO, Drug form: TAB, Bedtime, Dosing Weight 96.8, kg, PRN Insomnia, Start date: 06/02/18 17:10:00 CDT, 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, Stop date: 17:09:00 CDT Notes: (Same as: Melatonin) Start Date: 06/02/18 Stop Date: 06/02/18 Status: Discontinuedmeropenem + Sodium Chloride 0.9% IV 100 mL 500 mg, Route: IVPB, ABXQ8H, Dosing Weight 96.108, kg, Start date: 06/03/18 13: 00:00 CDT, 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, Stop date: 07/03/18 5:00:00 CDT, ABX Indication: Bone/Joint Infection Notes: Same as Merrem MEDICATION WASTE Product Size: 500 mgProduct Wasted: ___ mg Start Date: 06/03/18 Stop Date: 06/03/18 Status: Discontinuedmetoprolol extended release 25 mg, 1 tab, Route: PO, Drug form: ERTAB, Daily, Start date: 06/03/18 9:00:00 CDT, 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, Stop date: 07/02/18 9:00:00 CDT Notes: (Same as: Toprol XL) Do Not Crush Start Date: 06/03/18 Stop Date: 06/03/18 Status: DiscontinuedMetoprolol Succinate ER 25 mg oral tablet, extended release 25 mg=1 tab, PO, Daily Start Date: 06/02/18 Status: Orderedmidodrine 2.5 mg, 1 tab, Route: PO, Drug form: TAB, Daily, Dosing Weight 96.108, kg, Start date: 06/03/18 9:00:00 CDT, 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, Stop date: 07/02/18 9:00:00 CDT Notes: (Same as:Proamatine) Start Date: 06/03/18 Stop Date: 06/03/18 Status: Discontinuedmidodrine 2.5 mg oral tablet 2.5 mg=1 tab, PO, Daily Start Date: 06/02/18 Status: Orderedondansetron 4 mg, 2 mL, Route: IVP, Drug form: INJ, Q8H, Dosing Weight 96.8, kg, PRN Nausea & Vomiting, Start date: 06/02/18 17:10:00 CDT, 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, Stop date: 07/02/18 17:09:00 CDT Notes: (Same as: Janes) MEDICATION WASTE Product Size: 4 mgProduct Wasted: ___ mg Start Date: 06/02/18 Stop Date: 06/03/18 Status: Discontinuedtramadol 50 mg oral tablet 100 mg=2 tab, PO, Bedtime Start Date: 06/02/18 Status: Orderedtramadol 50 mg oral tablet 50 mg=1 tab, PO, After Lunch Start Date: 06/02/18 Status: Orderedtramadol 50 mg oral tablet 50 mg, 1 tab, Route: PO, Drug form: TAB, QAM, Dosing Weight 96.108, kg, Start date: 06/03/18 9:00:00CDT, 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, Stop date: 07/02/18 9:00:00 CDT Notes: Not to exceed 400mg/day. (Same As: Ultram) Start Date: 06/03/18 Stop Date: 06/03/18 Status: Discontinuedtramadol 50 mg oral tablet 100 mg, 2 tab, Route: PO, Drug form: TAB, Bedtime, Dosing Weight 96.108, kg, Start date: 06/02/18 23:45:00 CDT, 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, Stop date: 07/02/18 21:00: 00 CDT Notes: Not to exceed 400mg/day. (Same As: Román) Start Date: 06/02/18 Stop Date: 06/03/18 Status: Discontinuedtramadol 50 mg oral tablet 50 mg, 1 tab, Route: PO, Drug form: TAB, After Lunch, Dosing Weight 96.108, kg, Start date: 06/04/1911:30:00 CDT, 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, Stop date: 07/02/18 12:30: 00 CDT Notes: Not to exceed 400mg/day. (Same As: Cruzm) Start Date: 06/03/18 Stop Date: 06/03/18 Status: Discontinuedtrazodone 25 mg, 0.5 tab, Route: PO, Drug form: TAB, ONCE, Dosing Weight 96.108, kg, Start date: 06/02/18 21:19:00 CDT, Stop date: 06/02/18 21:19:00 CDT Notes: (Same As: Alessandra) Start Date: 06/02/18 Stop Date: 06/02/18 Status: Completedtrazodone 50 mg oral tablet 50 mg=1 tab, PO, Bedtime Start Date: 06/02/18 Status: Orderedtrazodone 50 mg oral tablet 50 mg, 1 tab, Route: PO, Drug form: TAB, Bedtime, Dosing Weight 96.108, kg, Start date: 06/03/18 21:00:00 CDT, 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, Stop date: 07/02/18 21:00: 00 CDT Notes: (Same As: Alessandra) Start Date: 06/03/18 Stop Date: 06/03/18 Status: Canceledvancomycin + Sodium Chloride 0.9% IV 250 mL 1,000 mg, Route: IVPB, [id number], Dosing Weight 96.108, kg, Start date: 06/02/18 19:00:00 CDT, Duration: 14 day, Stop date: 06/16/18 0:00:00 CDT, ABX Indication : Bone/Joint Infection Notes: TIME CRITICAL MEDICATION(Same As: Vancocin)Infusion rate< 1000 mg: infuse over 1 [id number] - 1500 mg: infuse over 1.5 [id number] - 2000 mg: infuse over 2 hours> 2001 mg: infuse over 2.5 hoursFor adult patients only: Round to nearest 250 mg per Medical Staff approval MEDICATION WASTE Product Size: 1000 mgProduct Wasted: ___ mg Start Date: 06/02/18 Stop Date: 06/03/18 Status: Discontinued Results ELECTROLYTES Most recent to oldest [Reference Range]: 1 2 Sodium Lvl [135-145 mEq/L] 144 mEq/L 145 mEq/L (06/03/18 5:50 AM) (06/02/18 3:59 PM) Potassium Lvl [3.5-5.1 mEq/L] 3.6 mEq/L 3.7 mEq/L (06/03/18 5:50 AM) (06/02/18 3:59 PM) Chloride Lvl [95-109 mEq/L] 113 mEq/L 113 mEq/L *HI* *HI* (06/03/18 5:50 AM) (06/02/18 3:59 PM) CO2 [24-32 mEq/L] 22 mEq/L 26 mEq/L *LOW* (06/02/18 3:59 PM) (06/03/18 5:50 AM) AGAP [10.0-20.0 mEq/L] 12.6 mEq/L 9.7 mEq/L (06/03/18 5:50 AM) *LOW* (06/02/18 3:59 PM) CHEM PANEL Most recent to oldest [Reference Range]: 1 2 Creatinine Lvl [0.50-1.40 mg/dL] 0.86 mg/dL 1.00 mg/dL (06/03/18 5:50 AM) (06/02/18 3:59 PM) eGFR 94 mL/min/1.73m2 1 82 mL/min/1.73m2 2 *NA* *NA* (06/03/18 5:50 AM) (06/02/18 3:59 PM) BUN [7-22 mg/dL] 10 mg/dL 11 mg/dL (06/03/18 5:50 AM) (06/02/18 3:59 PM) B/C Ratio [6-25] 11 (06/02/18 3:59 PM) Glucose Lvl [70-99 mg/dL] 89 mg/dL 98 mg/dL (06/03/18 5:50 AM) (06/02/18 3:59 PM) Total Protein [6.4-8.4 g/dL] 6.9 g/dL (06/02/18 3:59 PM) Albumin Lvl [3.5-5.0 g/dL] 2.7 g/dL *LOW* (06/02/18 3:59 PM) Globulin [2.7-4.2 g/dL] 4.2 g/dL (06/02/18 3:59 PM) A/G Ratio [0.7-1.6] 0.6 *LOW* (06/02/18 3:59 PM) Calcium Lvl [8.5-10.5 mg/dL] 7.7 mg/dL 8.2 mg/dL *LOW* *LOW* (06/03/18 5:50 AM) (06/02/18 3:59 PM) ALT [0-65 unit/L] 13 unit/L (06/02/18 3:59 PM) AST [0-37 unit/L] 6 unit/L (06/02/18 3:59 PM) Alk Phos [39-136 unit/L] 122 unit/L (06/02/18 3:59 PM) Bili Total [0.2-1.3 mg/dL] 0.1 mg/dL *LOW* (06/02/18 3:59 PM) 1Result Comment: The eGFR is calculated [...] eGFR should be multiplied by the estimated BMI.CARDIAC ENZYMES Most recent to oldest [Reference Range]: 1 2 Total CK [12-191 unit/L] 38 unit/L (06/02/18 3:59 PM) Troponin-I [0.00-0.40 ng/mL] <0.02 ng/mL (06/02/18 3:59 PM) BNP [<=100 pg/mL] 454 pg/mL *HI* (06/02/18 3:59 PM) HEMATOLOGY Most recent to oldest [Reference Range]: 1 2 WBC [3.7-10.4 K/CMM] 6.0 K/CMM (06/02/18 3:59 PM) RBC [4.70-6.10 M/CMM] 3.52 M/CMM *LOW* (06/02/18 3:59 PM) Hgb [14.0-18.0 g/dL] 8.8 g/dL *LOW* (06/02/18 3:59 PM) Hct [42.0-54.0 %] 28.6 % *LOW* (06/02/18 3:59 PM) MCV [80.0-94.0 fL] 81.3 fL (06/02/18 3:59 PM) MCH [27.0-31.0 pg] 25.1 pg *LOW* (06/02/18 3:59 PM) MCHC [32.0-36.0 g/dL] 30.8 g/dL *LOW* (06/02/18 3:59 PM) RDW [11.5-14.5 %] 18.6 % *HI* (06/02/18 3:59 PM) MPV [7.4-10.4 fL] 8.1 fL (06/02/18 3:59 PM) Platelet [133-450 K/CMM] 390 K/CMM (06/02/18 3:59 PM) Segs [45.0-75.0 %] 68.7 % (06/02/18 3:59 PM) Lymphocytes [20.0-40.0 %] 16.4 % *LOW* (06/02/18 3:59 PM) Monocytes [2.0-12.0 %] 10.1 % (06/02/18 3:59 PM) Eosinophils [0.0-4.0 %] 4.0 % (06/02/18 3:59 PM) Basophils [0.0-1.0 %] 0.8 % (06/02/18 3:59 PM) Neutrophils # [1.5-8.1 K/CMM] 4.1 K/CMM (06/02/18 3:59 PM) Lymphocytes # [1.0-5.5 K/CMM] 1.0 K/CMM (06/02/18 3:59 PM) Monocytes # [0.0-0.8 K/CMM] 0.6 K/CMM (06/02/18 3:59 PM) Eosinophils # [0.0-0.5 K/CMM] 0.2 K/CMM (06/02/18 3:59 PM) Anisocyte [None Seen] 1+ *ABN* (06/02/18 3:59 PM) Hypochrom [None Seen] 2+ (06/02/18 3:59 PM) Large Plt [None Seen] Moderate *ABN* (06/02/18 3:59 PM) PT [12.0-14.7 seconds] 13.3 seconds (06/02/18 3:59 PM) INR [0.85-1.17] 1.03 (06/02/18 3:59 PM) PTT [22.9-35.8 seconds] 31.9 seconds (06/02/18 3:59 PM) Microbiology Reports TEST:Culture: Anaerobic STATUS:Order in Progress BODY SITE:Chest SOURCE:Abscess COLLECTED DATE/TIME:06/03/18 10:00 AMPRELIMINARY REPORTNo Anaerobes Isolated After 2 DaysTEST:Culture: Aspirate/Body Fluid/Tissue STATUS:Order in Progress BODY SITE:Chest SOURCE:Aspirate COLLECTED DATE/TIME:06/03/18 10:00 AMPRELIMINARY REPORT48 Hour Report - No Growth, HoldingSTAIN REPORTNo Wbc'S Or Organisms Seen Immunizations No data available for [...] Reg Smoking Cessation Counseling No entered on: 05/09/18 Assessment and Plan Extracted from: Title: Clinical Document Author: Woody Rivera MD Date: 06/03/18 Progress Daily [facility] Completed: Jun, 10:51 by Woody Rivera MD RM: [id number], [id number] PATITO LUNA 62y (: 1955) M Attending: Timothy Kam DO Service: Internal Medicine Reason for Admission: CHEST PAIN Working DRG: Code status: Full Code Current diet: Isolation: No Isolation/Standard Precautions Allergies: iodine, penicillin, penicillins SUBJECTIVE See after placement of drian. 300+cc serosanguinous fluid withdrawn OBJECTIVE Afebrile Area over sternum flatter but still can express some fluid ASSESSMENT & EXAM PLAN & TREATMENT IR going to place some sclerosing agent Binder in chest. Await cultures but fluid did not look infected per IR DIAGNOSES & PROBLEMS Ready for Discharge (Yes/No)? Mcdowell still necessary (Yes/No): Line still necessary (Yes/No): 24hr Labs 06/03 0550 Glucose Lvl 89 BUN 10 Creatinine Lvl 0.86 Sodium Lvl 144 Potassium Lvl 3.6 Chloride Lvl 113 H CO2 22 L AGAP 12.6 Calcium Lvl 7.7 L eGFR 94 06/02 1559 Sodium Lvl 145 Potassium Lvl 3.7 Chloride Lvl 113 H CO2 26 AGAP 9.7 L Glucose Lvl 98 Creatinine Lvl 1.00 BUN 11 B/C Ratio 11 Total Protein 6.9 Albumin Lvl 2.7 L Globulin 4.2 A/G Ratio 0.6 L Calcium Lvl 8.2 L ALT 13 AST 6 Bili Total 0.1 L Alk Phos 122 eGFR 82 Total CK 38 Troponin-I <0.02 BNP 454 H WBC 6.0 RBC 3.52 L Hgb 8.8 L Hct 28.6 L MCV 81.3 MCH 25.1 L MCHC 30.8 L RDW 18.6 H Platelet 390 MPV 8.1 PT 13.3 INR 1.03 PTT 31.9 Segs 68.7 Monocytes 10.1 Lymphocytes 16.4 L Eosinophils 4.0 Basophils 0.8 Neutrophils # 4.1 Lymphocytes # 1.0 Monocytes # 0.6 Eosinophils # 0.2 Anisocyte 1+ Hypochrom 2+ Large Plt Moderate Vitals Tmp(F) Pulse BP RR SpO2 FIO2 06/03 07:15 98.1 77 151/81 17 93 --- 06/03 05:00 98.2 72 137/81 16 96 --- 06/03 01:00 97.6 68 159/86 16 97 --- 06/02 20:00 97.9 64 145/82 16 96 --- 06/02 18:47 98.2 85 173/80 16 98 --- 24 Hr Tmax: 98.2F (36.78c) at 06/03 05:00 Vital Signs are the last 5 in the past 48 hours. Date Wt(kg) Wt(lb) Ht(cm) Ht(in) Method 06/02 (initial) 96.11 211.44 Measured 06/02 185.42 73.00 Stated I&O Record In Out Bal 06/03 24hr Tot 19 0 19 06/02 24hr Tot 331 450 -119 Medications (24) Active Scheduled Meds (16): 06/03/18 DULoxetine 30 mg PO Daily 06/03/18 aspirin (aspirin 81 mg tablet, enteric coated) 81 mg PO Daily 06/03/18 atorvastatin 80 mg PO Bedtime 06/03/18 busPIRone 10 mg PO BID 06/02/18 cefepime + Sodium Chloride 0.9% IV 100 mL 1 gm IVPB [id number] 25 ml/hr 06/03/18 clopidogrel 75 mg PO Daily 06/03/18 docusate (Colace 100 mg oral capsule) 100 mg PO Daily 06/03/18 heparin 5,000 unit SUB-Q Q12H 06/03/18 lisinopril 2.5 mg PO Daily 06/03/18 metoprolol (metoprolol extended release) 25 mg PO Daily 06/03/18 midodrine 2.5 mg PO Daily 06/03/18 tramadol (tramadol 50 mg oral tablet) 50 mg PO After Lunch 06/02/18 tramadol (tramadol 50 mg oral tablet) 100 mg PO Bedtime 06/03/18 tramadol (tramadol 50 mg oral tablet) 50 mg PO QAM 06/03/18 trazodone (trazodone 50 mg oral tablet) 50 mg PO Bedtime 06/02/18 vancomycin + Sodium Chloride 0.9% IV 250 mL 1,000 mg IVPB [id number] 250 ml/hr Unscheduled Meds: None PRN Meds (6): 06/02/18 Dextrose 50% in Water IV (Dextrose 50% Syringe) 12.5 gm IVP PRN 06/02/18 Dextrose 50% in Water IV (Dextrose 50% Syringe) 25 gm IVP PRN 06/02/18 acetaminophen 650 mg PO Q4H 06/02/18 glucagon 1 mg IM PRN 06/02/18 hydrALAZINE 10 mg IVP Q4H 06/02/18 ondansetron 4 mg IVP Q8H One Time Meds (2): 06/03/18 (Ordered) doxycycline + Sodium Chloride 0.9% IV 25 mL 500 mg INTRAPLEURAL ONCE 0 ml/hr 06/02/18 (Completed) trazodone 25 mg PO ONCE Continuous Infusions: None Extracted from: Title: General Admission H&P * Author: Herman Lewis MD Date: Impression and Plan 1. 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 Consult interventional radiology for drainage. Continue IV antibiotics as per Dr. Oneal's recommendation. 2. CAD s/p CABG - continue Aspirin and Plavix. 3. Hypertension - adjust BP regimen necessary. I will order prn hydralazine. 4. Anemia of chronic disease - no transfusion for now. 5. DVT prophylaxis - I will order SC heparin.
--- OUTSIDE RECORDS SUMMARY | 2018-09-24 23:14 | XMS REPORT ---
:1955 [facility] Address [address] [place] [address] Care Team Providers Name Role Phone Unavailable Unavailable Unavailable Problems This patient has no known problems. Allergies, Adverse Reactions, Alerts This patient has no known allergies or adverse reactions. Medications This patient has no known medications. Encounters Start End Encounter Admission Attending Care Care Encounter Date/Time Date/Time Type Type Clinicians Facility Department ID 2018-06-02 Inpatient E [facility] MED [id number] 16:35:00 2018-08-16 2018-08-16 Outpatient E [facility] [id number] 01:28:00 01:28:00 2018-06-21 2018-06-21 Outpatient [facility] [id number] 10:57:00 10:57:00
--- OUTSIDE RECORDS SUMMARY | 2018-09-24 23:14 | XMS REPORT | Summary of Care ---
:1955 Author Organization [facility] Address [address], [place] [address]- Encounter HQ Anson_vikash(FIN) [id number] Date(s): 08/15/18 - 08/16/[address] Professional Services provided by [facility] [place] [address]- Discharge Disposition: Home or Self Care Attending Physician: Gldays Land MD Admitting Physician: Gladys Land MD Referring Physician: Gilmar Miranda MD Vital Signs Most recent to oldest 1 2 3 [Reference Range]: Height 185.42 cm 185.42 cm (08/16/18 2:46 AM) (08/15/18 8:17 PM) Temperature Oral [96.4-99.1 96.9 DegF 98.2 DegF 98.3 DegF DegF] (08/16/18 8:25 AM) (08/16/18 2:44 AM) (08/16/18 1:58 AM) Blood Pressure [90-140/60-90 95/60 mmHg 100/59 mmHg 114/75 mmHg mmHg] (08/16/18 11:55 AM) (08/16/18 8:25 AM) (08/16/18 2:44 AM) Respiratory Rate [14-20 BRMIN] 18 BRMIN 18 BRMIN 18 BRMIN (08/16/18 11:55 AM) (08/16/18 8:25 AM) (08/16/18 2:44 AM) Peripheral Pulse Rate [60-100 64 bpm 73 bpm 56 bpm bpm] (08/16/18 11:55 AM) (08/16/18 8:25 AM) *LOW* (08/16/18 2:44 AM) Weight 81.818 kg 81.818 kg (08/16/18 2:46 AM) (08/15/18 8:17 PM) Body Mass Index 23.8 m2 23.8 m2 (08/16/18 2:46 AM) (08/15/18 8:17 PM) Problem List Condition Effective Dates Status Health Status Informant CAD (coronary artery Active disease)(Confirmed) HLD (hyperlipidemia)(Confirmed) Active HTN (hypertension)(Confirmed) Active Allergies, Adverse Reactions, Alerts Substance Reaction Severity Status penicillins Active NKFA Active iodine1 contrast dye Active 1hives Medications Dextrose 50% Syringe 12.5 gm, 25 mL, Route: IVP, Drug Form: INJ, Dosing Weight 81.818, kg, PRN, PRN Blood Glucose Results, Start date: 08/16/18 3:13:00 CDT, 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, Stop date: 09/15/18 3:12:00 CDT Start Date: 08/16/18 Stop Date: 08/16/18 Status: DiscontinuedDextrose 50% Syringe 25 gm, 50 mL, Route: IVP, Drug Form: INJ, Dosing Weight 81.818, kg, PRN, PRN Blood Glucose Results, Start date: 08/16/18 3:13:00 CDT, 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, Stop date: 09/15/18 3:12:00 CDT Start Date: 08/16/18 Stop Date: 08/16/18 Status: Discontinueddocusate 100 mg, 1 cap, Route: PO, Drug form: CAP, BID, Dosing Weight 81.818, kg, Start date: 08/16/18 9:00:00 CDT, 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, Stop date: 09/14/18 17:00:00 CDT Notes: (Same as: Colace) (Do Not Crush) Start Date: 08/16/18 Stop Date: 08/16/18 Status: Discontinuedgabapentin 300 mg oral capsule 300 mg, 1 cap, Route: PO, Drug form: CAP, Q8H, Dosing Weight 81.818, kg, (CrCl & gt; 60 ml/min), Start date: 08/16/18 8:00:00 CDT, 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, Stop date: 09/15/18 0:00:00 CDT Notes: (Same as: Neurontin) Start Date: 08/16/18 Stop Date: 08/16/18 Status: Discontinuedglucagon 1 mg, Route: IM, Drug form: PDR/INJ, PRN, Dosing Weight 81.818, kg, PRN Blood Glucose Results, Startdate: 08/16/18 3:13:00 CDT, 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, Stop date: 09/15/18 3:12:00 CDT Start Date: 08/16/18 Stop Date: 08/16/18 Status: DiscontinuedIsolyte S PH 7.4 1,000 mL 1,000 mL, Rate: 125 ml/hr, Infuse over: 8 hr, Route: IV, Dosing Weight 81.818 kg , Total Volume: 1,000, Start date: 08/16/18 3:15:00 CDT, 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, Stop date: 09/15/18 3:14:00 CDT, 2.06, m2 Notes: (Same as: Isolyte S PH 7.4) Start Date: 08/16/18 Stop Date: 08/16/18 Status: DiscontinuedLovenox 40 mg, 0.4 mL, Route: SUB-Q, Drug form: INJ, [id number], Dosing Weight 81.818, kg , Start date: 08/16/18 4:00:00 CDT, 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, Stop date: 09/14/18 4:00: 00 CDT Notes: (Same as: Lovenox) Start Date: 08/16/18 Stop Date: 08/16/18 Status: Discontinuedmorphine Sulfate 4 mg, Route: IVP, ONCE, Dosing Weight 81.818, kg, Priority: STAT, Start date: 2:11:00 CDT, Stop date: 08/16/18 2:11:00 CDT Start Date: 08/16/18 Stop Date: 08/16/18 Status: Completedondansetron 4 mg, 2 mL, Route: IVP, Drug form: INJ, Q8H, Dosing Weight 81.818, kg, PRN Nausea & Vomiting, Start date: 08/16/18 3:13:00 CDT, 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, Stop date: 09/15/18 3:12:00 CDT Notes: (Same as: Zofran) MEDICATION WASTE Product Size: 4 mgProduct Wasted: _0__ mg Start Date: 08/16/18 Stop Date: 08/16/18 Status: Discontinuedtramadol 50 mg oral tablet 50 mg, 1 tab, Route: PO, Drug form: TAB, Q4H, Dosing Weight 81.818, kg, PRN Pain Score 6-10, Start date: 08/16/18 3:14:00 CDT, 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, Stop date: 09/15/18 3:13:00 CDT Notes: Not to exceed 400mg/day. (Same As: Ultram) Start Date: 08/16/18 Stop Date: 08/16/18 Status: DiscontinuedTylenol 1,000 mg, 2 tab, Route: PO, Drug form: TAB, Q6H, Dosing Weight 81.818, kg, Start date: 08/16/18 6:00:00 CDT, 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, Stop date: 09/15/18 0:00:00 CDT Notes: Max acetaminophen 4000 mg/day (4 gm/day). (Same as: Tylenol Extra Strength) Start Date: 08/16/18 Stop Date: 08/16/18 Status: DiscontinuedZofran 4 mg, Route: IVP, Drug form: INJ, ONCE, Dosing Weight 81.818, kg, Priority: STAT , Start date: 08/16/18 2:11:00 CDT, Stop date: 08/16/18 2:11:00 CDT Start Date: 08/16/18 Stop Date: 08/16/18 Status: Completed Results Most recent to oldest [Reference Range]: 1 2 CDC HIV 4th GEN [Negative] Negative *NA* (08/15/18 9:46 PM) Neutrophils # [1.5-8.1 K/CMM] 2.7 K/CMM 4.0 K/CMM (08/16/18 4:13 AM) (08/15/18 9:42 PM) Lymphocytes # [1.0-5.5 K/CMM] 1.3 K/CMM 1.3 K/CMM (08/16/18 4:13 AM) (08/15/18 9:42 PM) Monocytes # [0.0-0.8 K/CMM] 0.4 K/CMM 0.4 K/CMM (08/16/18 4:13 AM) (08/15/18 9:42 PM) Eosinophils # [0.0-0.5 K/CMM] 0.3 K/CMM 0.2 K/CMM (08/16/18 4:13 AM) (08/15/18 9:42 PM) Basophils # [0.0-0.2 K/CMM] 0.1 K/CMM 0.1 K/CMM (08/16/18 4:13 AM) (08/15/18 9:42 PM) Bili Indirect [0.0-1.0] Unable to Calculate *NA* (08/16/18 4:13 AM) Bili Indirect [0.0-1.0 mg/dL] 0.2 mg/dL (08/15/18 9:42 PM) eGFR 85 mL/min/1.73m2 1 68 mL/min/1.73m2 2 *NA* *NA* (08/16/18 4:13 AM) (08/15/18 9:42 PM) ABO/Rh A POS *Unknown* (08/15/18 9:44 PM) A/G Ratio [0.7-1.6] 0.8 0.8 (08/16/18 4:13 AM) (08/15/18 9:42 PM) Antibody Scrn Negative (08/15/18 9:44 PM) Albumin Lvl [3.5-5.0 g/dL] 3.0 g/dL 3.0 g/dL *LOW* *LOW* (08/16/18 4:13 AM) (08/15/18 9:42 PM) Alk Phos [39-136 unit/L] 214 unit/L 203 unit/L *HI* *HI* (08/16/18 4:13 AM) (08/15/18 9:42 PM) ALT [0-65 unit/L] 148 unit/L 109 unit/L *HI* *HI* (08/16/18 4:13 AM) (08/15/18 9:42 PM) AGAP [10.0-20.0 mEq/L] 11.2 mEq/L 12.9 mEq/L (08/16/18 4:13 AM) (08/15/18 9:42 PM) AST [0-37 unit/L] 207 unit/L 194 unit/L *HI* *HI* (08/16/18 4:13 AM) (08/15/18 9:42 PM) Basophils [0.0-1.0 %] 2.1 % 1.4 % *HI* *HI* (08/16/18 4:13 AM) (08/15/18 9:42 PM) BUN [7-22 mg/dL] 19 mg/dL 21 mg/dL (08/16/18:13 AM) (08/15/18 9:42 PM) Calcium Lvl [8.5-10.5 mg/dL] 9.0 mg/dL 8.6 mg/dL (08/16/18:13 AM) (08/15/18 9:42 PM) Chloride Lvl [95-109 mEq/L] 110 mEq/L 105 mEq/L *HI* (08/15/18 9:42 PM) (08/16/18 4:13 AM) CO2 [24-32 mEq/L] 24 mEq/L 25 mEq/L (08/16/18:13 AM) (08/15/18 9:42 PM) Creatinine Lvl [0.50-1.40 mg/dL] 0.96 mg/dL 1.16 mg/dL (08/16/18:13 AM) (08/15/18 9:42 PM) Bili Direct [0.0-0.3 mg/dL] <0.1 mg/dL 0.1 mg/dL (08/16/18 4:13 AM) (08/15/18 9:42 PM) Eosinophils [0.0-4.0 %] 6.2 % 3.5 % *HI* (08/15/18 9:42 PM) (08/16/18 4:13 AM) Globulin [2.7-4.2 g/dL] 3.9 g/dL 3.9 g/dL (08/16/18:13 AM) (08/15/18 9:42 PM) Glucose Lvl [70-99 mg/dL] 86 mg/dL 88 mg/dL (08/16/18 4:13 AM) (08/15/18 9:42 PM) Hct [42.0-54.0 %] 33.2 % 33.3 % *LOW* *LOW* (08/16/18 4:13 AM) (08/15/18 9:42 PM) Hgb [14.0-18.0 g/dL] 10.5 g/dL 10.4 g/dL *LOW* *LOW* (08/16/18 4:13 AM) (08/15/18 9:42 PM) INR [0.85-1.17] 1.05 (08/15/18 9:42 PM) Potassium Lvl [3.5-5.1 mEq/L] 4.2 mEq/L 3.9 mEq/L (08/16/18 4:13 AM) (08/15/18 9:42 PM) Lipase Lvl [73-393 unit/L] 165 unit/L (08/15/18 9:42 PM) Lymphocytes [20.0-40.0 %] 26.8 % 21.4 % (08/16/18 4:13 AM) (08/15/18 9:42 PM) MCH [27.0-31.0 pg] 24.5 pg 24.4 pg *LOW* *LOW* (08/16/18 4:13 AM) (08/15/18 9:42 PM) MCHC [32.0-36.0 g/dL] 31.5 g/dL 31.2 g/dL *LOW* *LOW* (08/16/18 4:13 AM) (08/15/18 9:42 PM) MCV [80.0-94.0 fL] 77.7 fL 78.2 fL *LOW* *LOW* (08/16/18 4:13 AM) (08/15/18 9:42 PM) Microcyte [None Seen] 1+ 1+ *ABN* *ABN* (08/16/18 4:13 AM) (08/15/18 9:42 PM) Monocytes [2.0-12.0 %] 8.7 % 7.3 % (08/16/18 4:13 AM) (08/15/18 9:42 PM) MPV [7.4-10.4 fL] 7.8 fL 8.0 fL (08/16/18 4:13 AM) (08/15/18 9:42 PM) Sodium Lvl [135-145 mEq/L] 141 mEq/L 139 mEq/L (08/16/18 4:13 AM) (08/15/18 9:42 PM) Platelet [133-450 K/CMM] 267 K/CMM 259 K/CMM (08/16/18 4:13 AM) (08/15/18 9:42 PM) Segs [45.0-75.0 %] 56.2 % 66.4 % (08/16/18:13 AM) (08/15/18 9:42 PM) Total Protein [6.4-8.4 g/dL] 6.9 g/dL 6.9 g/dL (08/16/18:13 AM) (08/15/18 9:42 PM) PT [12.0-14.7 seconds] 13.5 seconds (08/15/18 9:42 PM) PTT [22.9-35.8 seconds] 28.8 seconds (08/15/18 9:42 PM) RBC [4.70-6.10 M/CMM] 4.27 M/CMM 4.26 M/CMM *LOW* *LOW* (08/16/18:13 AM) (08/15/18 9:42 PM) RDW [11.5-14.5 %] 19.2 % 19.1 % *HI* *HI* (08/16/18:13 AM) (08/15/18 9:42 PM) Bili Total [0.2-1.3 mg/dL] 0.3 mg/dL 0.3 mg/dL (08/16/18 4:13 AM) (08/15/18 9:42 PM) Troponin-I [0.00-0.40 ng/mL] <0.02 ng/mL (08/15/18 9:42 PM) WBC [3.7-10.4 K/CMM] 4.7 K/CMM 6.0 K/CMM (08/16/18 4:13 AM) (08/15/18 9:42 PM) 1Result Comment: The eGFR is calculated [...] 08/16/18 Assessment and Plan Extracted from: Title: EGS History and Physical Author: Enrike Maya DO Date: Emergency General Surgery H&P Admission Surgeon: Gladys Land MD Date of Admission: 08/16/2018 03:01 Admission Diagnosis: Symptomatic Cholelithiasis Chief Complaint: "Abdominal pain" History of present Illness: Mr. Luna is a 62 year old male with a past medical history of CAD and HTN s/p CABG that presents with 1 day of abdominal pain and nausea. He reports no previous abdominal s ymptoms but he awoke morning, ate a bagel, and shortly after had increasing abdominal pain. He reports nothing made the pain better and even mild movement made the pain worse. He described the pain as a sharp stabbing pain in the upper abdominal quadrants with mild associated nausea. He denies any known sick contacts. He denies any diarrhea or constipation. Past Medical History: HTN, CAD with x5 surgeries for surgical site infection that required 6 months of home IV antibiotics Past Surgical History: CABG x 4 - Coronary artery bypass grafts x 4: 11/02/17 Repair of umbilical hernia: 2017 Allergies: iodine; NKFA; penicillins Medications: ASA and Plavix per EMR, multiple more per patient but unable to recall Family History: Mother: Heart failure Brother: Cancer, Lung Social History: Mr. Luna reports he quit smoking 10/2017 after his CABG. He denies alcohol or street drugs. ROS: General: Denies fever, fatigue, night sweats HEENT: Denies headache, ear pain, eye discharge, sore throat, tooth pain, visual changes Cardiovascular: Denies palpitations or chest pain Respiratory: Denies cough, wheezing, or shortness of breath Gastrointestinal: Reports abdominal pain and mild nausea Genitourinary: Denies difficulty or painful urinating, denies increased or decreased urine output Musculoskeletal: Denies arthralgias or myalgias, normal habitus Skin: Denies birthmarks, rashes, dryness, or itching Endocrine: Denies recent weight loss or gain Psychiatric: Denies mood changes or sleep problems Hematologic/Lymphatic: Denies bleeding, jaundice, or swollen gums Physical Exam Vital Signs: Vitals Tmp(F) Pulse BP RR SpO2 FIO2 08/16 02:44 98.2 56 114/75 18 98 --- 08/16 01:58 98.3 63 109/63 18 96 --- 08/15 20:17 97.5 64 114/70 19 97 --- 24 Hr Tmax: 98.3F (36.83c) at 08/16 01:58 Vital Signs are the last 5 in the past 48 hours. General Appearance: Well developed, well nourished, appropriate for age, no acute distress Skin: Integument intact without rashes or erythema HEENT: Normocephalic, pupils equal, neck without masses, trachea midline Heart: Normal rate, good capillary refill < 2 seconds, well healing midline sternotomy incision Lungs: Clear to auscultation bilaterally without wheezing or rales Abdomen: Soft, non-distended, without masses, mildly tender to palpation RUQ Genitourinary: Anatomy normal for age, patent anus Musculoskeletal: Limbs of equal length without deficit Neurologic: No focal deficit Pertinent Labs/Imaging Labs (Last four charted values) WBC 6.0 (AUG 15) Hgb L 10.4 (AUG 15) Hct L 33.3 (AUG 15) Plt 259 (AUG 15) Na 139 (AUG 15) K 3.9 (AUG 15) CO2 25 (AUG 15) Cl 105 (AUG 15) Cr 1.16 (AUG 15) BUN 21 (AUG 15) Glucose Random 88 (AUG 15) Ca 8.6 (AUG 15) PT 13.5 (AUG 15) INR 1.05 (AUG 15) PTT 28.8 (AUG 15) Troponin <0.02 (AUG 15) Imaging Studies (last 36 hours) Chest 1view DX 08/15/2018 21:44 Impression: No acute cardiopulmonary abnormality is observed. Stable platelike atelectasis and/or scarring in the left lung base. Assessment: Mr. Luna is a 62 year old male with a past medical history of HTN and CAD that presents with symptomatic cholelithiasis. Plan: -Admit for observation to [facility] -NPO -Hold [facility] -MMP -LVX Enrike Maya DO General Surgery PGY1 ATTENDING ATTESTATION: I have seen and examined the patient with the above provider (resident/fellow) . Futhermore, I concur with their findings and plan as noted above. Addendum by Gladys Land MD on Emergency General Surgery Faculty Addendum 08/16/2018 15:58 I have seen and examined the patient with the resident. I have reviewed the pertinent laboratory values and imaging studies. I agree with the assessment and plan as documented in the attached note and as detailed below: Symptomatic cholelithiasis -- I saw and examined the patient this am (~6:00 am). His symptoms and work-up are consistent with symptomatic cholelithiasis; his pain resolved. PO challenge. Recommend outpa tient surgery in next few weeks if no medical contraindications. Admitted to observation. Gladys Land MD
--- OUTSIDE RECORDS SUMMARY | 2018-09-24 23:14 | XMS REPORT | Summary of Care ---
:1955 Author Organization [facility] Address [address] [place] [id number]- Encounter HQ Radhar_vikash(FIN) [id number] Date(s): 05/09/18 - 05/21/18 [place] [address]- Discharge Disposition: Home or Self Care Attending Physician: Mimi Bernal MD Admitting Physician: Mimi Bernal MD Vital Signs Most recent to oldest 1 2 3 [Reference Range]: Height 185.42 cm (05/09/18 12:49 PM) Current Weight 89.004 kg 90.2 kg 88.4 kg (05/21/18 4:00 AM) (05/20/18 5:00 AM) (05/19/18 5:07 AM) Temperature Oral [96.4-99.1 98.3 DegF 97.8 DegF 98.0 DegF DegF] (05/21/18 7:44 AM) (05/21/18 4:00 AM) (05/21/18 12:00 AM) Blood Pressure [90-140/60-90 116/75 mmHg 102/67 mmHg 92/54 mmHg mmHg] (05/21/18 7:44 AM) (05/21/18 4:00 AM) (05/21/18 12:00 AM) Respiratory Rate [14-20 BRMIN] 18 BRMIN 18 BRMIN 18 BRMIN (05/21/18 7:44 AM) (05/21/18 4:00 AM) (05/21/18 12:00 AM) Peripheral Pulse Rate [60-100 74 bpm 71 bpm 71 bpm bpm] (05/21/18 7:44 AM) (05/21/18 4:00 AM) (05/21/18 12:00 AM) Weight 80.909 kg (05/09/18 12:49 PM) Body Mass Index 23.53 m2 (05/09/18 12:49 PM) Problem List No data available for this section Allergies, Adverse Reactions, Alerts Substance Reaction Severity Status penicillins Active penicillin1 Active iodine2 Active [id number] Medications acetaminophen 650 mg, 2 tab, Route: PO, Drug form: TAB, Q4H, Dosing Weight 80.909, kg, PRN For Temp > 100.4 F, Start date: 05/09/18 13:09:00 GIVER, 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, Stop date: 06/08/18 13:08:00 CDT Notes: Do not exceed 4 gm/day. (Same as: Tylenol) Start Date: 05/09/18 Stop Date: 05/21/18 Status: Discontinuedacetaminophen (ANES) Route: IV, Drug form: INJ, ONCE, Stop date: 05/13/18 9:05:00 CDT Start Date: 05/13/18 Stop Date: 05/13/18 Status: Completedacetaminophen (ANES) 10 mg Route: IV, Drug form: INJ, Start date: 05/17/18 10:17:00 CDT, Stop date: 11:17:00 CDT Start Date: 05/17/18 Stop Date: 05/17/18 Status: Completedalbumin human 5% intravenous solution 250 mL, Route: IV, Dosing Weight 80.909, kg, ONCE, NOW, Start date: 05/13/18 12: 52:00 CDT, Stop date: 05/13/18 12:52:00 CDT, Indication: Other see comments Start Date: 05/13/18 Stop Date: 05/13/18 Status: Completedalteplase 2 mg injection 1 mg, 1 mL, Route: IV Lock, Drug form: INJ, ONCE, Dosing Weight 80.909, kg, 1mg/ ml, Start date: 05/16/18 17:49:00 CDT, Stop date: 05/16/18 17:49:00 CDT, Occluded Central IV Catheter; Dosing Notes: "Syringe for catheter clearance or interventional radiology use.Reconstitute each vial of Cathflo Activase with 2.2 ml Sterile Water resulting in a 1 mg/ml solution. (Same as: Activase) MEDICATION WASTE Product Size: 2 mgProduct Wasted: ___ mg Start Date: 05/16/18 Stop Date: 05/16/18 Status: Completedalteplase 2 mg injection 1 mg, 1 mL, Route: INJ, Drug form: SOLN, ONCE, Dosing Weight 80.909, kg, Start date: 05/09/18 13:28:00 GIVER, Stop date: 05/09/18 13:28:00 GIVER, Occluded CVAD &lt ; 7 [place] Start Date: 05/09/18 Stop Date: 05/09/18 Status: Completedalteplase 2 mg injection 1 mg, 1 mL, Route: IV Lock, Drug form: INJ, ONCE, Dosing Weight 80.909, kg, 1mg/ ml, Start date: 05/16/18 17:48:00 CDT, Stop date: 05/16/18 17:48:00 CDT, Occluded Central IV Catheter; Dosing Notes: "Syringe for catheter clearance or interventional radiology use.Reconstitute each vial of Cathflo Activase with 2.2 ml Sterile Water resulting in a 1 mg/ml solution. (Same as: Activase) MEDICATION WASTE Product Size: 2 mgProduct Wasted: ___ mg Start Date: 05/16/18 Stop Date: 05/16/18 Status: CompletedANES acetaminophen 1,000 mg, 2 tab, Route: PO, Drug form: TAB, ONCE, Dosing Weight 80.909, kg, PRN Pain Score 1-3, Start date: 05/17/18 10:35:00 CDT Notes: Max acetaminophen 4000 mg/day (4 gm/day). (Same as: Tylenol Extra Strength) Start Date: 05/17/18 Stop Date: 05/21/18 Status: DiscontinuedANES albuterol 0.083% inhalation solution 2.49 mg, 3 mL, Route: NEB, Drug form: SOLN, PRN, Dosing Weight 80.909, kg, PRN Respiratory Pathway, Start date: 05/13/18 8:39:00 CDT, 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, Stop date: 06/12/18 8:38:00 CDT Notes: SEE RT DOCUMENTATION (Same as: Proventil) Start Date: 05/13/18 Stop Date: 05/13/18 Status: DiscontinuedANES dexamethasone 4 mg, 1 mL, Route: IVP, Drug form: INJ, ONCE, Dosing Weight 80.909, kg, PRN Nausea & Vomiting, Start date: 05/13/18 8:39:00 CDT Notes: Concentration: 4mg/ml Start Date: 05/13/18 Stop Date: 05/13/18 Status: DiscontinuedANES flumazenil 0.2 mg, 2 mL, Route: IVP, Drug form: INJ, PRN, Dosing Weight 80.909, kg, PRN Benzodiazepine Reversal, Initial dose, Start date: 05/13/18 8:39:00 CDT, 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, Stop date: 06/12/18 8:38:00 CDT Notes: (Same as: Romazicon) Start Date: 05/13/18 Stop Date: 05/13/18 Status: DiscontinuedANES flumazenil 0.2 mg, 2 mL, Route: IVP, Drug form: INJ, PRN, Dosing Weight 80.909, kg, PRN Benzodiazepine Reversal, Initial dose, Start date: 05/17/18 10:35:00 CDT, 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, Stop date: 06/16/18 10:34:00 CDT Notes: (Same as: Romazicon) Start Date: 05/17/18 Stop Date: 05/21/18 Status: DiscontinuedANES glycopyrrolate 0.2 mg, 1 mL, Route: IVP, Drug form: INJ, Q5Min, Dosing Weight 80.909, kg, PRN Bradycardia, Start date: 05/17/18 10:35:00 CDT, Duration: 3 doses or times, Stop date: Limited # of times Notes: (Same as: Aurora) Start Date: 05/17/18 Stop Date: 05/21/18 Status: DiscontinuedANES hydrALAZINE 10 mg, 0.5 mL, Route: IVP, Drug form: INJ, Q20Min, Dosing Weight 80.909, kg, PRN Elevated BP, Start date: 05/13/18 8:39:00 CDT, Duration: 2 doses or times, Stop date: Limited # of times Notes: (Same as: Apresoline)Push over 5 minutes Start Date: 05/13/18 Stop Date: 05/13/18 Status: DiscontinuedANES HYDROmorphone 0.5 mg, 0.25 mL, Route: IVP, Drug form: INJ, Q5Min, Dosing Weight 80.909, kg, PRN Pain Score 7-10, Start date: 05/13/18 8:39:00 CDT, Duration: 4 doses or times, Stop date: Limited # of times Notes: Same as Dilaudid Start Date: 05/13/18 Stop Date: 05/13/18 Status: DiscontinuedANES HYDROmorphone 0.5 mg, 0.25 mL, Route: IVP, Drug form: INJ, Q5Min, Dosing Weight 80.909, kg, PRN Pain Score 7-10, Start date: 05/17/18 10:35:00 CDT, Duration: 4 doses or times, Stop date: Limited # of times Notes: Same as Dilaudid Start Date: 05/17/18 Stop Date: 05/21/18 Status: DiscontinuedANES meperidine 12.5 mg, 0.5 mL, Route: IVP, Drug form: INJ, Q30Min, Dosing Weight 80.909, kg, PRN Other -See Comment, For shivering, Start date: 05/17/18 10:35:00 CDT, Duration: 2 doses or times, Stop date: Limited #of times Notes: (Same as: Demerol) "Use Precaution in Elderly, Seizure disorders, and Renal impairment" Start Date: 05/17/18 Stop Date: 05/21/18 Status: DiscontinuedANES morphine Sulfate 2 mg, 0.5 mL, Route: IVP, Drug form: SOLN, Q5Min, Dosing Weight 80.909, kg, PRN Pain Score 4-6, Start date: 05/13/18 8:39:00 CDT, Duration: 5 doses or times, Stop date: Limited # of times Notes: (Same as:MORPhine Sulfate) Start Date: 05/13/18 Stop Date: 05/13/18 Status: DiscontinuedANES morphine Sulfate 2 mg, 0.5 mL, Route: IVP, Drug form: SOLN, Q5Min, Dosing Weight 80.909, kg, PRN Pain Score 4-6, Start date: 05/17/18 10:35:00 CDT, Duration: 5 doses or times, Stop date: Limited # of times Notes: (Same as:MORPhine Sulfate) Start Date: 05/17/18 Stop Date: 05/21/18 Status: DiscontinuedANES naloxone 0.4 mg, 1 mL, Route: IVP, Drug form: INJ, Q2MIN, Dosing Weight 80.909, kg, PRN Narcotic Reversal, Start date: 05/13/18 8:39:00 CDT, Duration: 8 doses or times , Stop date: Limited # of times Notes: Same as Narcan Start Date: 05/13/18 Stop Date: 05/13/18 Status: DiscontinuedANES naloxone 0.4 mg, 1 mL, Route: IVP, Drug form: INJ, Q2MIN, Dosing Weight 80.909, kg, PRN Narcotic Reversal, Start date: 05/17/18 10:35:00 CDT, Duration: 8 doses or times , Stop date: Limited # of times Notes: Same as Narcan Start Date: 05/17/18 Stop Date: 05/21/18 Status: DiscontinuedANES ondansetron 4 mg, 2 mL, Route: IVP, Drug form: INJ, ONCE, Dosing Weight 80.909, kg, PRN Nausea & Vomiting, Start date: 05/13/18 8:39:00 CDT Notes: (Same as: Janes) MEDICATION WASTE Product Size: 4 mgProduct Wasted: ___ mg Start Date: 05/13/18 Stop Date: 05/13/18 Status: DiscontinuedANES ondansetron 4 mg, 2 mL, Route: IVP, Drug form: INJ, ONCE, Dosing Weight 80.909, kg, PRN Nausea & Vomiting, Start date: 05/17/18 10:35:00 CDT Notes: (Same as: Janes) MEDICATION WASTE Product Size: 4 mgProduct Wasted: ___ mg Start Date: 05/17/18 Stop Date: 05/21/18 Status: DiscontinuedANES promethazine + Sodium Chloride 0.9% IV 50 mL 6.25 mg, 0.25 mL, Route: IVPB, ONCE, Dosing Weight 80.909, kg, PRN Nausea & Vomiting, Start date: 05/17/18 10:35:00 CDT Notes: Do not give IV push. (Same as: Phenergan) Start Date: 05/17/18 Stop Date: 05/21/18 Status: Discontinuedatorvastatin 80 mg, 2 tab, Route: PO, Drug form: TAB, Bedtime, Dosing Weight 80.909, kg, Start date: 05/09/18 21:00:00 GIVER, 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, Stop date: 06/07/18 21:00: 00 CDT Notes: (Same as: Lipitor) Start Date: 05/09/18 Stop Date: 05/21/18 Status: DiscontinuedBD Normal Saline Flush 10 mL, Route: IV, Drug Form: INJ, Q8H, Start date: 05/09/18 16:00:00 GIVER, 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, Stop date: 06/08/18 8:00:00 CDT Notes: (Same as: BD Posiflush) Start Date: 05/09/18 Stop Date: 05/13/18 Status: DiscontinuedBD Normal Saline Flush 10 mL, Route: IV, Drug Form: INJ, PRN, PRN Line Flush, Start date: 05/09/18 13: 59:00 GIVER, 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, Stop date: 06/08/18 14:58:00 CDT Notes: (Same as: BD Posiflush) Start Date: 05/09/18 Stop Date: 05/21/18 Status: DiscontinuedBD Normal Saline Flush 5 mL, Route: IV, Drug Form: INJ, PRN, PRN Line Flush, Start date: 05/09/18 13:58 :00 GIVER, 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, Stop date: 06/08/18 14:57:00 CDT Notes: (Same as: BD Posiflush) Start Date: 05/09/18 Stop Date: 05/21/18 Status: DiscontinuedbusPIRone 10 mg, 1 tab, Route: PO, Drug form: TAB, BID, Dosing Weight 80.909, kg, Start date: 05/09/18 17:00:00 GIVER, 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, Stop date: 06/08/18 9:00:00 CDT Notes: (Same As: BuSpar) Start Date: 05/09/18 Stop Date: 05/21/18 Status: DiscontinuedCathflo Activase 2 mg injection 1 mg, 1 mL, Route: INJ, Drug form: SOLN, ONCE, Dosing Weight 80.909, kg, Start date: 05/09/18 13:28:00 GIVER, Stop date: 05/09/18 13:28:00 GIVER, Occluded CVAD &lt ; 7 [place] Start Date: 05/09/18 Stop Date: 05/09/18 Status: Completedcefepime (ANES) 1000 mg Route: IV, Drug form: INJ, Start date: 05/17/18 10:59:00 CDT, Stop date: 11:59:00 CDT Start Date: 05/17/18 Stop Date: 05/17/18 Status: Completedcefepime + Sodium Chloride 0.9% IV 100 mL 1 gm, Route: IVPB, [id number], Dosing Weight 80.909, kg, (CrCl 30 - 49 ml/min), Start date: 05/09/18 17:00:00 GIVER, Duration: 5 day, Stop date: 05/14/18 5:00:00 CDT, ABX Indication: Skin/Soft Tissue Infection Notes: (Same As: Maxipime) MEDICATION WASTE Product Size: 1000 mgProduct Wasted: ___ mg Start Date: 05/09/18 Stop Date: 05/14/18 Status: Completedcefepime + Sodium Chloride 0.9% IV 100 mL 1 gm, Route: IVPB, Q8H, Dosing Weight 80.909, kg, (CrCl >/=50 ml/min), Start date: 05/14/18 15:00:00 CDT, Duration: 7 day, Stop date: 05/21/18 8:00:00 CDT, ABX Indication: Bone/Joint Infection Notes: (Same As: Maxipime) MEDICATION WASTE Product Size: 1000 mgProduct Wasted: _0__ mg Start Date: 05/14/18 Stop Date: 05/21/18 Status: Pending CompletechlorproMAZINE 25 mg, 1 tab, Route: PO, Drug form: TAB, TID, Dosing Weight 80.909, kg, Start date: 05/14/18 18:30:00 CDT, Duration: 5 day, Stop date: 05/19/18 17:00:00 CDT Notes: (Same As: Thorazine) Start Date: 05/14/18 Stop Date: 05/18/18 Status: DiscontinuedchlorproMAZINE 25 mg, 1 tab, Route: PO, Drug form: TAB, ONCE, Dosing Weight 80.909, kg, Start date: 05/15/18 22:48:00 CDT, Stop date: 05/15/18 22:48:00 CDT Notes: (Same As: Thorazine) Start Date: 05/15/18 Stop Date: 05/15/18 Status: Completedclopidogrel 75 mg, 1 tab, Route: PO, Drug form: TAB, Daily, Dosing Weight 80.909, kg, Start date: 05/10/18 9:00:00 GIVER, 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, Stop date: 06/08/18 9:00:00 CDT Notes: (Same As: Plavix) Start Date: 05/10/18 Stop Date: 05/21/18 Status: DiscontinuedColace 100 mg oral capsule 100 mg, 1 cap, Route: PO, Drug form: CAP, BID, Dosing Weight 80.909, kg, Start date: 05/15/18 10:11:00 CDT, 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, Stop date: 06/14/18 9:00:00 CDT Notes: (Same as: Colace) (Do Not Crush) Start Date: 05/15/18 Stop Date: 05/21/18 Status: Discontinueddexamethasone (ANES) Route: IV, Drug form: INJ, ONCE, Stop date: 05/17/18 10:48:00 CDT Start Date: 05/17/18 Stop Date: 05/17/18 Status: CompletedDextrose 50% Syringe 12.5 gm, 25 mL, Route: IVP, Drug Form: INJ, Dosing Weight 80.909, kg, PRN, PRN Blood Glucose Results, Start date: 05/09/18 13:09:00 GIVER, 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, Stop date: 06/08/18 14:08:00 CDT Start Date: 05/09/18 Stop Date: 05/21/18 Status: DiscontinuedDextrose 50% Syringe 25 gm, 50 mL, Route: IVP, Drug Form: INJ, Dosing Weight 80.909, kg, PRN, PRN Blood Glucose Results, Start date: 05/09/18 13:09:00 GIVER, 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, Stop date: 06/08/18 14:08:00 CDT Start Date: 05/09/18 Stop Date: 05/21/18 Status: DiscontinuedDULoxetine 30 mg, 1 cap, Route: PO, Drug form: DRC, Daily, Dosing Weight 80.909, kg, Start date: 05/10/18 9:00:00 GIVER, 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, Stop date: 06/08/18 9:00:00 CDT Start Date: 05/10/18 Stop Date: 05/21/18 Status: DiscontinuedePHEDrine (ANES) Route: IV, Drug form: INJ, ONCE, Stop date: 05/13/18 8:08:00 CDT Start Date: 05/13/18 Stop Date: 05/13/18 Status: Completedesmolol (ANES) Route: IV, Drug form: INJ, ONCE, Stop date: 05/13/18 8:38:00 CDT Start Date: 05/13/18 Stop Date: 05/13/18 Status: CompletedfentaNYL (ANES) Route: IV, Drug form: INJ, ONCE, Stop date: 05/17/18 10:53:00 CDT Start Date: 05/17/18 Stop Date: 05/17/18 Status: CompletedfentaNYL (ANES) Route: IV, Drug form: INJ, ONCE, Stop date: 05/13/18 8:28:00 CDT Start Date: 05/13/18 Stop Date: 05/13/18 Status: CompletedfentaNYL - one time ICU bolus dose 25 microgram, 0.5 mL, Route: IVP, Drug form: INJ, ONCE, Dosing Weight 80.909, kg , Start date: 05/14/18 11:56:00 CDT, Stop date: 05/14/18 11:56:00 CDT Notes: (Same as: Sublimaze) Preservative free. Start Date: 05/14/18 Stop Date: 05/14/18 Status: Completedferrous sulfate 325 mg, 1 tab, Route: PO, Drug form: TAB, Daily, Dosing Weight 80.909, kg, Start date: 05/10/18 9:00:00 GIVER, 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, Stop date: 06/08/18 9:00:00 CDT Notes: Dose=___mg elemental iron Start Date: 05/10/18 Stop Date: 05/21/18 Status: DiscontinuedFleet Enema 133 mL, Route: OK, Drug Form: CARLOZ, Dosing Weight 80.909, kg, ONCE, Start date: 05/19/18 17:12:00 CDT, Stop date: 05/19/18 17:12:00 CDT Start Date: 05/19/18 Stop Date: 05/19/18 Status: Completedglucagon 1 mg, Route: IM, Drug form: PDR/INJ, PRN, Dosing Weight 80.909, kg, PRN Blood Glucose Results, Startdate: 05/09/18 13:09:00 GIVER, 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, Stop date: 06/08/18 14:08:00 CDT Start Date: 05/09/18 Stop Date: 05/21/18 Status: Discontinuedglycopyrrolate (ANES) Route: IV, Drug form: INJ, ONCE, Stop date: 05/17/18 11:39:00 CDT Start Date: 05/17/18 Stop Date: 05/17/18 Status: Completedheparin 5,000 unit, 1 mL, Route: SUB-Q, Drug form: INJ, Q12H, Dosing Weight 80.909, kg, Start date: 199:00:00 GIVER, 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, Stop date: 06/09/18 21:00:00 CDT Notes: porcine heparin Start Date: 05/11/18 Stop Date: 05/21/18 Status: DiscontinuedLactated Ringers Injection IV (ANES) 1000 mL Route: IV, Total Volume: 1,000, Start date: 05/13/18 7:09:00 CDT, Stop date: 01/21 8:09:00 CDT Start Date: 05/13/18 Stop Date: 05/13/18 Status: CompletedLactated Ringers Injection IV (ANES) 1000 mL Route: IV, Total Volume: 1,000, Start date: 05/17/18 9:30:00 CDT, Stop date: 10:30:00 CDT Start Date: 05/17/18 Stop Date: 05/17/18 Status: Completedlidocaine Route: INJ, Drug form: INJ, ONCALL, Start date: 05/14/18 0:00:00 CDT, Stop date : 05/14/18 2:00:00 CDT Notes: Preservative free. (Same as: Xylocaine MPF) Start Date: 05/14/18 Stop Date: 05/13/18 Status: Completedlidocaine (ANES) Route: IV, Drug form: INJ, ONCE, Stop date: 05/17/18 10:48:00 CDT Start Date: 05/17/18 Stop Date: 05/17/18 Status: Completedlidocaine (ANES) Route: IV, Drug form: INJ, ONCE, Stop date: 05/13/18 8:23:00 CDT Start Date: 05/13/18 Stop Date: 05/13/18 Status: Completedlisinopril 2.5 mg, 0.5 tab, Route: PO, Drug form: TAB, Daily, Dosing Weight 80.909, kg, Start date: 05/17/18 9:00:00 CDT, 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, Stop date: 06/15/18 9:00:00 CDT Notes: (Same as: Prinivil, Zestril) Start Date: 05/17/18 Stop Date: 05/21/18 Status: Discontinuedlisinopril 5 mg, 1 tab, Route: PO, Drug form: TAB, Daily, Dosing Weight 80.909, kg, Start date: 05/10/18 9:00:00 GIVER, 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, Stop date: 06/08/18 9:00:00 CDT Notes: (Same as: Prinivil, Zestril) Start Date: 05/10/18 Stop Date: 05/16/18 Status: Discontinuedlisinopril 5 mg oral tablet 2.5 mg=0.5 tab, PO, Daily, # 30 tab, 0 Refill(s), Pharmacy: [facility] [id number] Start Date: 05/21/18 Status: Orderedmetoclopramide 10 mg, Route: IVP, ONCE, Dosing Weight 80.909, kg, Start date: 05/15/18 12:13: 00 CDT, Stop date: 05/15/18 12:13:00 CDT Start Date: 05/15/18 Stop Date: 05/15/18 Status: Completedmidazolam (ANES) Route: IV, Drug form: SOLN, ONCE, Stop date: 05/17/18 10:43:00 CDT Start Date: 05/17/18 Stop Date: 05/17/18 Status: Completedmidazolam (ANES) Route: IV, Drug form: SOLN, ONCE, Stop date: 05/13/18 8:23:00 CDT Start Date: 05/13/18 Stop Date: 05/13/18 Status: Completedmirtazapine 15 mg, 1 tab, Route: PO, Drug form: TAB, Bedtime, Dosing Weight 80.909, kg, Start date: 05/09/18 21:00:00 GIVER, 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, Stop date: 06/07/18 21:00: 00 CDT Notes: (Same as:Remeron) Start Date: 05/09/18 Stop Date: 05/21/18 Status: Discontinuedmorphine Sulfate 1 mg, 0.25 mL, Route: IV, Drug form: SOLN, Q6H, Dosing Weight 80.909, kg, PRN Pain Score 6-10, Startdate: 05/09/18 13:09:00 GIVER, 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, Stop date: 06/08/18 13:08:00 CDT Notes: (Same as:MORPhine Sulfate) Start Date: 05/09/18 Stop Date: 05/15/18 Status: Discontinuedmorphine Sulfate 2 mg, 0.5 mL, Route: IVP, Drug form: SOLN, ONCE, Dosing Weight 80.909, kg, Start date: 05/13/18 17:48:00 CDT, Stop date: 05/13/18 17:48:00 CDT Notes: (Same as:MORPhine Sulfate) Start Date: 05/13/18 Stop Date: 05/13/18 Status: Completedmorphine Sulfate (ANES) Route: IV, Drug form: INJ, ONCE, Stop date: 05/13/18 10:36:00 CDT Start Date: 05/13/18 Stop Date: 05/13/18 Status: Completedmorphine Sulfate (ANES) Route: IV, Drug form: INJ, ONCE, Stop date: 05/17/18 11:39:00 CDT Start Date: 05/17/18 Stop Date: 05/17/18 Status: CompletedNarcan 0.2 mg, 0.5 mL, Route: IVP, Drug form: INJ, PRN, Dosing Weight 80.909, kg, PRN Narcotic Reversal, Start date: 05/17/18 14:11:00 CDT, 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, Stop date: 06/16/18 14:10:00 CDT Notes: Same as Narcan Start Date: 05/17/18 Stop Date: 05/21/18 Status: Discontinuedneostigmine (ANES) Route: IV, Drug form: INJ, ONCE, Stop date: 05/17/18 11:39:00 CDT Start Date: 05/17/18 Stop Date: 05/17/18 Status: CompletedNorco 5/325 oral tablet 2 tab, Route: PO, Drug Form: TAB, Dosing Weight 80.909, kg, Q4H, PRN Pain Score 6-10, Start date: 05/10/18 19:40:00 GIVER, 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, Stop date: 06/09/18 19:39:00 CDT Notes: (Same as: Powersite 325/5) Do not exceed 4gm/day of acetaminophen. Start Date: 05/10/18 Stop Date: 05/21/18 Status: DiscontinuedNorco 5/325 oral tablet 1 tab, Route: PO, Drug Form: TAB, Dosing Weight 80.909, kg, Q4H, PRN Pain Score 4-6, Start date: 05/10/18 19:40:00 GIVER, 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, Stop date: 06/09/18 19 :39:00 CDT Notes: (Same as: Powersite 325/5) Do not exceed 4gm/day of acetaminophen. Start Date: 05/10/18 Stop Date: 05/21/18 Status: Discontinuednormal saline 0.9% IV 1,000 mL 1,000 mL, Rate: 75 ml/hr, Infuse over: 13.3 hr, Route: IV, Dosing Weight 80.909 kg, Total Volume: 1,000, Start date: 05/13/18 20:21:00 CDT, 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, Stop date: 06/12/18 20:20:00 CDT, 2.05, m2 Start Date: 05/13/18 Stop Date: 05/15/18 Status: Discontinuedondansetron 4 mg, 1 tab, Route: SL, Drug form: TABDIS, Q8H, Dosing Weight 80.909, kg, PRN Nausea & Vomiting,Start date: 05/09/18 13:09:00 GIVER, 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, Stop date: 06/08/18 13:08:00 CDT Notes: (Same as: Zofran ODT) Start Date: 05/09/18 Stop Date: 05/21/18 Status: Discontinuedondansetron (ANES) Route: IV, Drug form: INJ, ONCE, Stop date: 05/17/18 11:39:00 CDT Start Date: 05/17/18 Stop Date: 05/17/18 Status: Completedphenylephrine (ANES) Route: IV, Drug form: INJ, ONCE, Stop date: 05/17/18 10:53:00 CDT Start Date: 05/17/18 Stop Date: 05/17/18 Status: Completedphenylephrine (ANES) Route: IV, Drug form: INJ, ONCE, Stop date: 05/13/18 8:18:00 CDT Start Date: 05/13/18 Stop Date: 05/13/18 Status: Completedphenylephrine (ANES) 100 microgram Route: IV, Drug form: INJ, Start date: 05/17/18 9:50:00 CDT, Stop date: 10:50:00 CDT Start Date: 05/17/18 Stop Date: 05/17/18 Status: Completedpropofol (ANES) Route: IV, Drug form: INJ, ONCE, Stop date: 05/17/18 10:48:00 CDT Start Date: 05/17/18 Stop Date: 05/17/18 Status: Completedpropofol (ANES) Route: IV, Drug form: INJ, ONCE, Stop date: 05/13/18 8:23:00 CDT Start Date: 05/13/18 Stop Date: 05/13/18 Status: CompletedReglan 10 mg, 2 mL, Route: IVP, Drug form: INJ, ONCE, Dosing Weight 80.909, kg, Start date: 05/14/18 16:45:00 CDT, Stop date: 05/14/18 16:45:00 CDT Notes: (Same as: Reglan) Start Date: 05/14/18 Stop Date: 05/14/18 Status: Completedrocuronium (ANES) Route: IV, Drug form: INJ, ONCE, Stop date: 05/17/18 10:48:00 CDT Start Date: 05/17/18 Stop Date: 05/17/18 Status: Completedrocuronium (ANES) Route: IV, Drug form: INJ, ONCE, Stop date: 05/13/18 8:23:00 CDT Start Date: 05/13/18 Stop Date: 05/13/18 Status: CompletedRomazicon 0.2 mg, 2 mL, Route: IV, Drug form: INJ, ONCE, Dosing Weight 80.909, kg, Start date: 05/17/18 14:01:00 CDT, Stop date: 05/17/18 14:01:00 CDT Notes: (Same as: Romazicon) Start Date: 05/17/18 Stop Date: 05/17/18 Status: OrderedSaline Flush 0.9% 10 mL, Route: IVP, Drug Form: INJ, Dosing Weight 80.909, kg, Q8H, Start date: 0:00:00 GIVER, 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, Stop date: 06/08/18 16:00:00 CDT Start Date: 05/10/18 Stop Date: 05/09/18 Status: DeletedSaline Flush 0.9% 10 mL, Route: IVP, Drug Form: INJ, Dosing Weight 80.909, kg, PRN, PRN Line Flush , Start date: 05/09/18 17:54:00 GIVER, 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, Stop date: 06/08/18 18:53 :00 CDT Start Date: 05/09/18 Stop Date: 05/09/18 Status: DeletedSodium Chloride 0.9% (titrate) 250 mL 250 mL, Rate: To prime line and flush remaining blood products., Dosing Weight 80.909, kg, Route: IV, Total Volume: 250, Priority: Routine, Start Date: 21:42:00 CDT, 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, Stop date: 06/12/18 21:41:00 CDT, Replace Every: 24 hr Start Date: 05/13/18 Stop Date: 05/15/18 Status: DiscontinuedSodium Chloride 0.9% IV 25 mL, Route: IV, Start date: 05/09/18 13:59:00 GIVER, 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, Stop date : 06/08/18 14:58:00 CDT, PRN Line Flush Start Date: 05/09/18 Stop Date: 05/21/18 Status: Discontinuedsuccinylcholine (ANES) Route: IV, Drug form: INJ, ONCE, Stop date: 05/17/18 10:43:00 CDT Start Date: 05/17/18 Stop Date: 05/17/18 Status: Completedsugammadex (ANES) Route: IV, Drug form: SOLN, ONCE, Stop date: 05/13/18 9:05:00 CDT Start Date: 05/13/18 Stop Date: 05/13/18 Status: CompletedToprol-XL 25 mg oral tablet, extended release 25 mg, 1 tab, Route: PO, Drug form: ERTAB, Daily, Start date: 05/10/18 9:00:00 GIVER, 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, Stop date: 06/08/18 9:00:00 CDT Start Date: 05/10/18 Stop Date: 05/21/18 Status: Discontinuedtramadol 50 mg oral tablet 100 mg=2 tab, PO, Bedtime, 0 Refill(s) Start Date: 05/09/18 Status: Orderedtrazodone 50 mg oral tablet 100 mg, 2 tab, Route: PO, Drug form: TAB, Bedtime, Dosing Weight 80.909, kg, Start date: 05/09/18 21:00:00 GIVER, 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, Stop date: 06/07/18 21:00: 00 CDT Notes: (Same As: Alessandra) Start Date: 05/09/18 Stop Date: 05/21/18 Status: Discontinuedvancomycin 1.5 gm, 250 mL, Route: IVPB, Drug form: INJ, [id number], Dosing Weight 80.909, kg, Start date: 05/11/1913:00:00 GIVER, 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, Stop date: 06/09/18 17:30: 00 CDT, ABX Indication: Bone/Joint Infection Notes: TIME CRITICAL MEDICATIONSame as: Vancocin-NS (premixed)Infusion rate< 1000 mg: infuse over1 [id number] - 1500 mg: infuse over 1.5 [id number] - 2000 mg: infuse over 2 hours> 2001 mg: infuse over 2.5 hours Start Date: 05/11/18 Stop Date: 05/15/18 Status: Discontinuedvancomycin + Sodium Chloride 0.9% IV 250 mL 1 gm, Route: IVPB, [id number], Dosing Weight 80.909, kg, Start date: 05/17/18 1:00: 00 CDT, Duration: 30day, Stop date: 06/15/18 1:00:00 CDT, ABX Indication: Bone/ Joint Infection Notes: TIME CRITICAL MEDICATION(Same As: Vancocin)Infusion rate< 1000 mg: infuse over 1 [id number] - 1500 mg: infuse over 1.5 [id number] - 2000 mg: infuse over 2 hours> 2001 mg: infuse over 2.5 hoursFor adult patients only: Round to nearest 250 mg per Medical Staff approval MEDICATION WASTE Product Size: 1000 mgProduct Wasted: ___ mg Start Date: 05/17/18 Stop Date: 05/20/18 Status: Discontinuedvancomycin + Sodium Chloride 0.9% IV 250 mL 1,000 mg, Route: IVPB, [id number], Dosing Weight 80.909, kg, Start date: 05/09/18 16:00:00 GIVER, Duration: 3 day, Stop date: 05/12/18 4:00:00 CDT, ABX Indication: Skin/Soft Tissue Infection Notes: For adult patients only: Round to nearest 250 mg per Medical Staff approval MEDICATION WASTE Product Size: 1000 mgProduct Wasted: ___ mg Start Date: 05/09/18 Stop Date: 05/11/18 Status: Discontinuedvancomycin + Sodium Chloride 0.9% IV 250 mL 1 gm, Route: IVPB, [id number], Dosing Weight 80.909, kg, Start date: 05/20/18 18:00 :00 CDT, 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, Stop date: 06/18/18 18:00:00 CDT, ABX Indication: Bone/Joint Infection Notes: TIME CRITICAL MEDICATION(Same As: Vancocin)Infusion rate< 1000 mg: infuse over 1 [id number] - 1500 mg: infuse over 1.5 [id number] - 2000 mg: infuse over 2 hours> 2001 mg: infuse over 2.5 hoursFor adult patients only: Round to nearest 250 mg per Medical Staff approval MEDICATION WASTE Product Size: 1000 mgProduct Wasted: ___ mg Start Date: 05/20/18 Stop Date: 05/21/18 Status: DiscontinuedXanax 0.25 mg oral tablet 0.25 mg, 1 tab, Route: PO, Drug form: TAB, TID, Dosing Weight 80.909, kg, PRN Anxiety, Start date: 05/09/18 16:24:00 GIVER, 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, Stop date: 16:23:00 CDT Notes: With food or milk(Same as: Xanax) Start Date: 05/09/18 Stop Date: 05/21/18 Status: Discontinued Results BLOOD BANK RESULTS Most recent to oldest 1 2 3 [Reference Range]: ABO/Rh A POS A POS *Unknown* *Unknown* (05/17/18 8:26 AM) (05/12/18 8:00 PM) Antibody Scrn Negative Negative (05/17/18 8:26 AM) (05/12/18 8:00 PM) RBC product Product available 1 Product available 2 Product available 3 (05/17/18 10:16 AM) (05/13/18 11:19 PM) (05/13/18 9:42 PM) 1Result Comment: 05/19/2018 00:30 [id number] Product was ordered for 05/17/18 surgery.2Result Comment: 05/13/2018 23:30 [id number] Blood available, notified Amber Harris at 05/13/2018 23:30 by REGIS.3Result Comment: 21:55 [id number] Blood available, notified Antonia Bay at 05/13/2018 21:55 by [email or web address] Most recent to oldest 1 2 3 [Reference Range]: Sodium Lvl [135-145 mEq/L] 143 mEq/L 144 mEq/L 143 mEq/L (05/21/18 6:30 AM) (05/20/18 1:11 AM) (05/19/18 5:50 AM) Potassium Lvl [3.5-5.1 4.3 mEq/L 4.1 mEq/L 3.9 mEq/L mEq/L] (05/21/18 6:30 AM) (05/20/18 1:11 AM) (05/19/18 5:50 AM) Chloride Lvl [95-109 mEq/L] 108 mEq/L 108 mEq/L 109 mEq/L (05/21/18 6:30 AM) (05/20/18 1:11 AM) (05/19/18 5:50 AM) CO2 [24-32 mEq/L] 29 mEq/L 31 mEq/L 28 mEq/L (05/21/18 6:30 AM) (05/20/18 1:11 AM) (05/19/18 5:50 AM) AGAP [10.0-20.0 mEq/L] 10.3 mEq/L 9.1 mEq/L 9.9 mEq/L (05/21/18 6:30 AM) *LOW* *LOW* (05/20/18 1:11 AM) (05/19/18 5:50 AM) CHEM PANEL Most recent to oldest 1 2 3 [Reference Range]: Creatinine Lvl [0.50-1.40 0.66 mg/dL 0.72 mg/dL 0.72 mg/dL mg/dL] (05/21/18 6:30 AM) (05/20/18 1:11 AM) (05/19/18 5:50 AM) eGFR 105 mL/min/1.73m2 1 102 mL/min/1.73m2 2 101 mL/min/1.73m2 3 *NA* *NA* *NA* (05/21/18 6:30 AM) (05/20/18 1:11 AM) (05/19/18 5:50 AM) BUN [7-22 mg/dL] 14 mg/dL 15 mg/dL 15 mg/dL (05/21/18 6:30 AM) (05/20/18 1:11 AM) (05/19/18 5:50 AM) B/C Ratio [6-25] (05/18/18 4:08 AM) (05/17/18 4:48 AM) (05/16/18 5:21 AM) Glucose Lvl [70-99 mg/dL] 79 mg/dL 96 mg/dL 121 mg/dL (05/21/18 6:30 AM) (05/20/18 1:11 AM) *HI* (05/19/18 5:50 AM) Total Protein [6.4-8.4 6.5 g/dL 5.9 g/dL 5.8 g/dL g/dL] (05/18/18 4:08 AM) *LOW* *LOW* (05/17/18 4:48 AM) (05/16/18 5:21 AM) Albumin Lvl [3.5-5.0 g/dL] 2.5 g/dL 2.5 g/dL 2.4 g/dL *LOW* *LOW* *LOW* (05/18/18 4:08 AM) (05/17/18 4:48 AM) (05/16/18 5:21 AM) Globulin [2.7-4.2 g/dL] 4.0 g/dL 3.4 g/dL 3.4 g/dL (05/18/18 4:08 AM) (05/17/18 4:48 AM) (05/16/18 5:21 AM) A/G Ratio [0.7-1.6] 0.6 0.7 0.7 *LOW* (05/17/18 4:48 AM) (05/16/18 5:21 AM) (05/18/18 4:08 AM) Calcium Lvl [8.5-10.5 8.3 mg/dL 8.3 mg/dL 7.9 mg/dL mg/dL] *LOW* *LOW* *LOW* (05/21/18 6:30 AM) (05/20/18 1:11 AM) (05/19/18 5:50 AM) Phosphorus [2.5-4.5 mg/dL] 3.3 mg/dL 3.2 mg/dL 3.0 mg/dL (05/19/18 5:50 AM) (05/17/18 4:48 AM) (05/16/18 5:21 AM) Magnesium Lvl [1.8-2.4 1.8 mg/dL 1.8 mg/dL 1.8 mg/dL mg/dL] (05/19/18 5:50 AM) (05/17/18 4:48 AM) (05/16/18 5:21 AM) ALT [0-65 unit/L] 12 unit/L 12 unit/L 11 unit/L (05/18/18 4:08 AM) (05/17/18 4:48 AM) (05/16/18 5:21 AM) AST [0-37 unit/L] 12 unit/L 8 unit/L 6 unit/L (05/18/18 4:08 AM) (05/17/18 4:48 AM) (05/16/18 5:21 AM) Alk Phos [39-136 unit/L] 71 unit/L 80 unit/L 75 unit/L (05/18/18 4:08 AM) (05/17/18 4:48 AM) (05/16/18 5:21 AM) Bili Total [0.2-1.3 mg/dL] 0.6 mg/dL 0.7 mg/dL 1.6 mg/dL (05/18/18 4:08 AM) (05/17/18 4:48 AM) *HI* (05/16/18 5:21 AM) Bili Direct [0.0-0.3 mg/dL] <0.1 mg/dL <0.1 mg/dL (05/12/18 4:58 AM) (05/11/18 4:50 AM) Bili Indirect [0.0-1.0] Unable to Calculate Unable to Calculate *NA* *NA* (05/12/18 4:58 AM) (05/11/18 4:50 AM) Lactic Acid Lvl [0.5-2.2 0.9 mMol/L mMol/L] (05/13/18 8:42 PM) Procalcitonin Lvl <0.05 ng/mL [0.00-0.10 ng/mL] (05/10/18 11:06 AM) 1Result Comment: The eGFR is calculated [...] recent to oldest [Reference Range]: 1 2 3 Total CK [12-191 unit/L] 33 unit/L 33 unit/L (05/20/18 12:35 PM) (05/20/18 7:45 AM) Troponin-I [0.00-0.40 ng/mL] <0.02 ng/mL <0.02 ng/mL (05/20/18 12:35 PM) (05/20/18 7:45 AM) PARATHYROID PROFILE Most recent to oldest [Reference Range]: 1 2 3 Ca Ion WB [1.05-1.25 mMol/L] 1.15 mMol/L 1.09 mMol/L (05/15/18 3:07 AM) (05/14/18 3:41 AM) Ca Norm WB [1.05-1.25 mMol/L] 1.15 mMol/L 1.11 mMol/L (05/15/18 3:07 AM) (05/14/18 3:41 AM) TOXICOLOGY Most recent to oldest 1 2 3 [Reference Range]: Vanco Tr TND unk 0030 unk *NA* *NA* *NA* (05/21/18 6:30 AM) (05/20/18 1:11 AM) (05/19/18 5:50 AM) Vanco Lvl 16.6 ug/ml *NA* (05/16/18 5:21 AM) Vanco Tr 12.8 ug/ml 7.3 ug/ml 21.8 ug/ml *NA* *NA* *NA* (05/21/18 6:30 AM) (05/20/18 1:11 AM) (05/19/18 5:50 AM) IMMUNOLOGY Most recent to oldest 1 2 3 [Reference Range]: CRP [<=2.9 mg/L] 12.4 mg/L 9.8 mg/L 8.7 mg/L *HI* *HI* *HI* (05/13/18 5:03 AM) (05/12/18 4:58 AM) (05/11/18 4:50 AM) HEMATOLOGY Most recent to oldest 1 2 3 [Reference Range]: WBC [3.7-10.4 K/CMM] 7.3 K/CMM 7.5 K/CMM 7.0 K/CMM (05/21/18 9:40 AM) (05/20/18 1:11 AM) (05/19/18 5:50 AM) RBC [4.70-6.10 M/CMM] 3.40 M/CMM 3.16 M/CMM 2.96 M/CMM *LOW* *LOW* *LOW* (05/21/18 9:40 AM) (05/20/18 1:11 AM) (05/19/18 5:50 AM) Hgb [14.0-18.0 g/dL] 8.8 g/dL 8.2 g/dL 7.8 g/dL *LOW* *LOW* *LOW* (05/21/18 9:40 AM) (05/20/18 1:11 AM) (05/19/18 5:50 AM) Hct [42.0-54.0 %] 27.3 % 25.8 % 24.2 % *LOW* *LOW* *LOW* (05/21/18 9:40 AM) (05/20/18 1:11 AM) (05/19/18 5:50 AM) MCV [80.0-94.0 fL] 80.1 fL 81.5 fL 81.7 fL (05/21/18 9:40 AM) (05/20/18 1:11 AM) (05/19/18 5:50 AM) MCH [27.0-31.0 pg] 25.8 pg 26.0 pg 26.3 pg *LOW* *LOW* *LOW* (05/21/18 9:40 AM) (05/20/18 1:11 AM) (05/19/18 5:50 AM) MCHC [32.0-36.0 g/dL] 32.2 g/dL 31.9 g/dL 32.2 g/dL (05/21/18 9:40 AM) *LOW* (05/19/18 5:50 AM) (05/20/18 1:11 AM) RDW [11.5-14.5 %] 19.0 % 18.6 % 18.4 % *HI* *HI* *HI* (05/21/18 9:40 AM) (05/20/18 1:11 AM) (05/19/18 5:50 AM) MPV [7.4-10.4 fL] 8.3 fL 8.0 fL 8.2 fL (05/21/18 9:40 AM) (05/20/18 1:11 AM) (05/19/18 5:50 AM) Platelet [133-450 K/CMM] 233 K/CMM 217 K/CMM 200 K/CMM (05/21/18 9:40 AM) (05/20/18 1:11 AM) (05/19/18 5:50 AM) Segs [45.0-75.0 %] 63.4 % 63.4 % 65.9 % (05/21/18 9:40 AM) (05/20/18 1:11 AM) (05/19/18 5:50 AM) Lymphocytes [20.0-40.0 %] 19.0 % 21.2 % 22.0 % *LOW* (05/20/18 1:11 AM) (05/19/18 5:50 AM) (05/21/18 9:40 AM) Monocytes [2.0-12.0 %] 8.8 % 9.1 % 6.9 % (05/21/18 9:40 AM) (05/20/18 1:11 AM) (05/19/18 5:50 AM) Eosinophils [0.0-4.0 %] 7.5 % 5.2 % 4.5 % *HI* *HI* *HI* (05/21/18 9:40 AM) (05/20/18 1:11 AM) (05/19/18 5:50 AM) Basophils [0.0-1.0 %] 1.3 % 1.1 % 0.7 % *HI* *HI* (05/19/18 5:50 AM) (05/21/18 9:40 AM) (05/20/18 1:11 AM) Neutrophils # [1.5-8.1 4.6 K/CMM 4.8 K/CMM 4.6 K/CMM K/CMM] (05/21/18 9:40 AM) (05/20/18 1:11 AM) (05/19/18 5:50 AM) Lymphocytes # [1.0-5.5 1.4 K/CMM 1.6 K/CMM 1.5 K/CMM K/CMM] (05/21/18 9:40 AM) (05/20/18 1:11 AM) (05/19/18 5:50 AM) Monocytes # [0.0-0.8 K/CMM] 0.6 K/CMM 0.7 K/CMM 0.5 K/CMM (05/21/18 9:40 AM) (05/20/18 1:11 AM) (05/19/18 5:50 AM) Eosinophils # [0.0-0.5 0.5 K/CMM 0.4 K/CMM 0.3 K/CMM K/CMM] (05/21/18 9:40 AM) (05/20/18 1:11 AM) (05/19/18 5:50 AM) Basophils # [0.0-0.2 K/CMM] 0.1 K/CMM 0.1 K/CMM 0.1 K/CMM (05/21/18 9:40 AM) (05/20/18 1:11 AM) (05/19/18 5:50 AM) Microcyte [None Seen] 1+ 1+ 1+ *ABN* *ABN* *ABN* (05/12/18 4:58 AM) (05/11/18 4:50 AM) (05/10/18 3:26 AM) Plt Morph Normal (05/09/18 2:34 PM) Sed Rate [0-15 mm/hr] 33 mm/hr 30 mm/hr 34 mm/hr *HI* *HI* *HI* (05/13/18 5:03 AM) (05/12/18 4:58 AM) (05/11/18 4:50 AM) PT [12.0-14.7 seconds] 11.9 seconds 14.5 seconds 13.9 seconds *LOW* (05/17/18 4:48 AM) (05/13/18 8:42 PM) (05/17/18 3:56 PM) INR [0.85-1.17] 0.89 1.15 1.09 (05/17/18 3:56 PM) (05/17/18 4:48 AM) (05/13/18 8:42 PM) PTT [22.9-35.8 seconds] 43.8 seconds 29.8 seconds 32.6 seconds *HI* (05/13/18 8:42 PM) (05/13/18 5:03 AM) (05/17/18 4:48 AM) Microbiology Reports TEST:Culture: Anaerobic STATUS:Auth (Verified) BODY SITE: SOURCE:Bone COLLECTED DATE/TIME:05/13/18 8:11 AMFINAL REPORTNo Anaerobes IsolatedTEST: Culture: Aspirate/Body Fluid/Tissue STATUS:Auth (Verified) BODY SITE: SOURCE:Bone COLLECTED DATE/TIME:05/13/18 8:11 AMFINAL REPORTNo GrowthSTAIN REPORT No Wbc'S Or Organisms SeenTEST:Culture: Wound/Abscess w/Gram Stain STATUS:Auth (Verified) BODY SITE:Chest SOURCE:Wound, Surgical COLLECTED DATE/TIME:05/10/18 5:28 PMFINAL REPORTGrowth In Subculture Broth Only : Staphylococcus Species, Not S. aureusSTAIN REPORTRare WBC's No Organisms Seen ORGANISM:Staphylococcus Species, Not S. aureus Immunizations No data available for this section [...] Clinical Document Author: Nghia Oneal MD Date: 05/21/18 INFECTIOUS DISEASES PROGRESS NOTE Attending: Faina Mccormick MD Service: Internal Medicine Code status: None Specified=FULL CODE Reason for Admission: STERNAL OSTEOMYELITIS Working DRG: Isolation: No Isolation/Standard Precautions Consulting Physicians: Woody Rivera MD Office: Service: Plastic Surgery Chicho Sullivan MD Office: Service: Thoracic/Cardiac Surgery, General Surgery Nghia Oneal MD Office: Service: Infectious Disease HISTORY OF PRESENT ILLNESS 62-year-old male with past medical history of hypertemnsion, hyperlipidemia, multi-vessel CAD s/p CABG X 4 (at [facility]) who was admitted to [facility] on 05/09/2017 with progressive sternal wound. He had been admitted from02/13/2018-02/21/2018 with osteomyelitis of the sternum. CXR at that time revealed no acute cardiopulmonary disease, CT chest revealed findings consistent with osteomyelitis. He was started on intravenous ceftriaxone and vancomycin. On 02/14/2018 the wound was debride d and wound vac applied by Dr Sullivan (at which time purulence was encountered) . He was discharged on intravenous antibiotics but required admnission to [facility] in early March when he refused to proceed w [facility] outpatiuent IV antibiotics. After three weeks on intravenous antibiotics at [facility], I re-evaluated him in my office and noted persistent infection. Repeat CT on 04/05/2018 revealed progressive osteomyelitis and he was placed back on intravenous antibiotics with which he was compliant over several weeks. He then failed to keep his appointment on 05/02/2018, failed to follow up [facility] surgery re-evaluation as he was instructed by me. Numerous phone calls were generated by my office in efforts to reach him, which for several days he ignored. Finally, on 05/09/2018 he responded, martha lundy into the office and it was noted that he had developed renewed scant amount of drainage from the suture line of his sternum. He thus was directed to the hospital. REVIEW OF SYSTEMS Constitutional: fever, chills, sweats, [...] ALLERGIES Allergies: iodine, penicillins MEDICATIONS Scheduled Meds (13): 05/10/18 DULoxetine 30 mg PO Daily 05/09/18 atorvastatin 80 mg PO Bedtime 05/09/18 busPIRone 10 mg PO BID 05/14/18 cefepime + Sodium Chloride 0.9% IV 100 mL 1 gm IVPB Q8H 25 ml/hr 05/10/18 (Suspended) clopidogrel 75 mg PO Daily 05/15/18 docusate (Colace 100 mg oral capsule) 100 mg PO BID 05/10/18 ferrous sulfate 325 mg PO Daily 05/17/18 (Suspended) heparin 5,000 unit SUB-Q Q12H 05/17/18 lisinopril 2.5 mg PO Daily 05/10/18 metoprolol (Toprol-XL 25 mg oral tablet, extended release) 25 mg PO Daily 05/09/18 mirtazapine 15 mg PO Bedtime 05/09/18 trazodone (trazodone 50 mg oral tablet) 100 mg PO Bedtime 05/17/18 vancomycin + Sodium Chloride 0.9% IV 250 mL 1 gm IVPB [id number] 250 ml/ hr PHYSICAL EXAM Vitals Tmp(F) Pulse BP RR SpO2 FIO2 05/21 07:44 98.3 74 116/75 18 98 --- 05/21 07:40 ---- --- ----- -- 98 21% 05/21 04:00 97.8 71 102/67 18 98 21% 05/21 00:00 98.0 71 92/54 18 97 21% 05/20 22:09 ---- --- ----- -- 97 21% 24 Hr Tmax: 98.3F (36.83c) at 05/21 07:44 Vital Signs are the last 5 in the past 48 hours. General: awake and responsive Eye: Normal conjunctiva (No injection) HEENT: Normocephalic, atraumatic dry mucosa Neck: Supple, Non-tender, No carotid bruit, No lymphadenopathy, No thyromegaly. Respiratory: Lungs decreased breath sounds bases Cardiovascular: Distant, Normal rate, Regular rhythm, No murmur, No gallop Sternum suture line nodular with surrounding erythema and with yellow crusts Gastrointestinal: Soft, Non-tender, Distended, Normal bowel sounds, Genitourinary: No CVA tenderness Lymphatics: No lymphadenopathy neck, axilla, groin. Musculoskeletal Normal passive range of motion Integumentary: Warm, Dry, [place], No rash Neurologic: CN 2-12 intact, awake and alert [facility] BUN: 15 mg/dL (05/19/18) Hct: 24.2 % Low (05/19/18) Hgb: 7.8 g/dL Low (05/19/18) MCH: 26.3 pg Low (05/19/18) MCHC: 32.2 g/dL (05/19/18) MCV: 81.7 fL (05/19/18) MPV: 8.2 fL (05/19/18) Platelet: 200 K/CMM (05/19/18) RBC: 2.96 M/CMM Low (05/19/18) RDW: 18.4 % High (05/19/18) WBC: 7 K/CMM (05/19/18) WBC: 8.7 K/CMM (05/18/18) WBC: 6.3 K/CMM (05/15/18) WBC: 6.3 K/CMM (05/14/18) WBC: 5.6 K/CMM (05/12/18) WBC: 5.4 K/CMM (05/11/18) WBC: 6.3 K/CMM (05/10/18) WBC: 6.7 K/CMM (05/09/18) WBC: 6.9 K/CMM (02/20/18) WBC: 6.9 K/CMM (02/18/18) WBC: 6.9 K/CMM (02/18/18) WBC: 7.1 K/CMM (02/17/18) WBC: 9 K/CMM (02/16/18) WBC: 5.5 K/CMM (02/15/18) WBC: 8.9 K/CMM (02/14/18) WBC: 9 K/CMM (02/13/18) IMAGING CXR 02/13/2018 no acute cardiopulmonary disease CT CHEST 02/13/2018 findings consistent with osteomyelitis of the sternum CT CHEST 04/05/2018 progressive osteomyelitis MICROBIOLOGY BLOOD 02/13/2018 utcmfbjd62/07/2018 negative BODY FLUID (STERNAL WOUND) 02/14/2018 negative 05/10/2018 negative IMPRESSION Sternal wound Osteomyelitis sternum Hypertension CAD s/p CABG Hyperlipidemia RECOMMENDATIONS Intravenous vancomycin day 13 Intravenous cefepime day 13 Post op removal of infected sternal wires, debridement, wound vac per Dr Sullivan on 02/14/2018 Post op surgical debridement per Dr Rivera/Nate 05/13/2018 and 05/17/2018 CBC BMP ESR CRP LFTs Disposition: Long discussion with Mr Luna regarding outpatient IV antibiotics which will work only if he is compliant (he had compliance issues last round). He adamantly agrees to make all appointment s, take all meds as instructed, to answer phone calls, be in close communication with my office. I advised that the alternatives would be a bad results and possibly even his demise. He expressed his understanding Extracted from: Title: History and Physical Author: Beth Jama MD Date: 05/09/18 Sternal osteomyelitiswith worsening skin cellulitisand pain. History of recentcardiac bypass surgery with a sternal wound infection. History of hypertension. History ofdepression History of hyperlipidemia Plan. Start IV antibiotics, start other home medications, will hold Lasix for now. We will follow-up withcardiovascular surgery andplastic surgery, will consult patient'sinfectious disease. Starth eart healthy diet for now, will do labs and the imagings. Discussed with patient and his and with Dr. Oneal. Sternal osteomyelitis(M86.9) Ordered: Admit/Condition, 05/09/18 13:14:00 GIVER, Status: Inpatient, Telemetry Capable Location, Expected LOS: 2 Midnights, Beth Jama MD, Admit MD Review/ Approve Yes, Isolation: No Isolation/Standard Precautions, Sternal osteomyelitis
--- OUTSIDE RECORDS SUMMARY | 2018-09-24 23:14 | XMS REPORT | Summary of Care ---
:1955 Author Organization [facility] Address [address] [place] [id number]- Encounter HQ Lucas(FIN) [phone] Date(s): 02/28/18 - 03/01/[address] [address]- Encounter Diagnosis Shortness of breath (Final) - Hypertensive heart disease with heart failure (Final) - 06/26/18 Unspecified severe protein-calorie malnutrition (Final) - Atelectasis (Final) - Infection following a procedure, other surgical site, initial encounter (Final) - Osteomyelitis, unspecified (Final) - Cellulitis of chest wall (Final) - Acute on chronic combined systolic (congestive) and diastolic (congestive) heart failure (Final) - Frequency of micturition (Final) - Atherosclerotic heart disease of [place] coronary artery without angina pectoris (Final) - Localized edema (Final) - Hyperlipidemia, unspecified (Final) - Ischemic cardiomyopathy (Final) - Personal history of nicotine dependence (Final) - Presence of aortocoronary bypass graft (Final) - Radiographic dye allergy status (Final) - Body mass index (BMI) 27.0-27.9, adult (Final) - Discharge Disposition: Home Care with Home Health Attending Physician: Jamie Rush MD Admitting Physician: Jamie Rush MD Vital Signs Most recent to oldest 1 2 3 [Reference Range]: Height 185.42 cm 185.42 cm (02/28/18 4:03 AM) (02/28/18 4:01 AM) Temperature Oral 98.0 DegF 98.1 DegF 98 DegF [96.4-99.1 DegF] (03/01/18 12:00 PM) (03/01/18 8:00 AM) (03/01/18 5:42 AM) Blood Pressure 125/81 mmHg 115/68 mmHg 103/78 mmHg [90-140/60-90 mmHg] (03/01/18 1:00 PM) (03/01/18 12:00 PM) (03/01/18 11:00 AM) Respiratory Rate [14-20 27 BRMIN 9 BRMIN 15 BRMIN BRMIN] *HI* *LOW* (02/28/18 6:00 AM) (02/28/18 8:00 AM) (02/28/18 7:00 AM) Weight 95.004 kg 95.4 kg (02/28/18 4:03 AM) (02/28/18 4:01 AM) Body Mass Index 27.63 m2 27.75 m2 (02/28/18 4:03 AM) (02/28/18 4:01 AM) Problem List Condition Effective Dates Status Health Status Informant CAD (coronary artery Active disease)(Confirmed) HLD (hyperlipidemia)(Confirmed) Active HTN (hypertension)(Confirmed) Active Allergies, Adverse Reactions, Alerts Substance Reaction Severity Status penicillins Active NKFA Active iodine1 contrast dye Active 1hives Medications atorvastatin 80 mg, 2 tab, Route: PO, Drug form: TAB, Bedtime, Dosing Weight 95.004, kg, Start date: 02/28/18 21:00:00 GROUNDMAN, 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, Stop date: 03/29/18 21:00: 00 GROUNDMAN Notes: (Same as: Lipitor) Start Date: 02/28/18 Stop Date: 03/01/18 Status: DiscontinuedBenadryl 50 mg, 1 mL, Route: IVP, Drug form: INJ, ONCE, Dosing Weight 83.182, kg, PRN Allergic reaction, Start date: 02/28/18 2:25:00 GROUNDMAN Notes: (Same as: Benadryl) Start Date: 02/28/18 Stop Date: 02/28/18 Status: CompletedBeneprotein 7 gm pkt 1 pkt, Route: PO, Drug Form: PWDR, Dosing Weight 95.004, kg, BID-Before Meals, Start date: 02/28/18 16:30:00 GROUNDMAN, 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, Stop date: 03/30/18 7:30: 00 GROUNDMAN Notes: (Same as: Beneprotein) Start Date: 02/28/18 Stop Date: 03/01/18 Status: DiscontinuedbusPIRone 10 mg, 1 tab, Route: PO, Drug form: TAB, BID, Dosing Weight 95.004, kg, Priority : NOW, Start date: 02/28/18 9:24:00 GROUNDMAN, 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, Stop date: 03/30/18 9 :00:00 GROUNDMAN Notes: (Same As: BuSpar) Start Date: 02/28/18 Stop Date: 03/01/18 Status: DiscontinuedcefTRIAXone + Sodium Chloride 0.9% IV 100 mL 2 gm, Route: IVPB, [id number], Dosing Weight 95.004, kg, Start date: 02/28/18 13:00 :00 GROUNDMAN, 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, Stop date: 03/29/18 13:00:00 GROUNDMAN, ABX Indication: Bone/Joint Infection Notes: (Same As: Rocephin).Use with 100 mL NS and infuse over 30 min MEDICATION WASTE Product Size: 2000 mgProduct Wasted: ___ mg Start Date: 02/28/18 Stop Date: 03/01/18 Status: Discontinuedclopidogrel 75 mg, 1 tab, Route: PO, Drug form: TAB, Daily, Dosing Weight 95.004, kg, Priority: NOW, Start date:02/28/18 9:24:00 GROUNDMAN, 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, Stop date: 9:00:00 GROUNDMAN Notes: (Same As: Plavix) Start Date: 02/28/18 Stop Date: 03/01/18 Status: Discontinueddexamethasone 7.5 mg, 1.88 mL, Route: IVP, Drug form: INJ, ONCE, Dosing Weight 83.182, kg, Start date: 02/28/18 3:59:00 GROUNDMAN, 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/28/18 3:59:00 GROUNDMAN Notes: Concentration: 4mg/ml Start Date: 02/28/18 Stop Date: 02/28/18 Status: CompletedDULoxetine 30 mg, 1 cap, Route: PO, Drug form: DRC, Daily, Dosing Weight 95.004, kg, Priority: NOW, Start date:02/28/18 9:24:00 GROUNDMAN, 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, Stop date: 9:00:00 GROUNDMAN Notes: (Same as: Cymbalta) (Do Not Crush) Start Date: 02/28/18 Stop Date: 03/01/18 Status: Discontinuedenoxaparin 40 mg, 0.4 mL, Route: SUB-Q, Drug form: INJ, Daily, Dosing Weight 83.182, kg, Start date: 02/28/18 9:00:00 GROUNDMAN, 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, Stop date: 03/29/18 9:00:00 GROUNDMAN Notes: (Same as: Lovenox) Start Date: 02/28/18 Stop Date: 03/01/18 Status: Discontinuedferrous sulfate 325 mg, 1 tab, Route: PO, Drug form: TAB, Daily, Dosing Weight 95.004, kg, Priority: NOW, Start date: 02/28/18 9:24:00 GROUNDMAN, 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, Stop date: 9:00:00 GROUNDMAN Notes: Give with food.iron elemental [id number] as ferrous sulfateDose=___mg elemental iron Start Date: 02/28/18 Stop Date: 03/01/18 Status: Discontinuedfurosemide 40 mg, 4 mL, Route: IVP, Drug form: INJ, Q12H, Dosing Weight 83.182, kg, Start date: 02/28/18 9:00:00 GROUNDMAN, 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, Stop date: 03/29/18 21:00:00 GROUNDMAN Notes: (Same as: Lasix) MEDICATION WASTE Product Size: 40 mgProduct Wasted: ___ mg Start Date: 02/28/18 Stop Date: 03/01/18 Status: Discontinuedfurosemide 20 mg oral tablet 20 mg=1 tab, PO, Daily, # 30 tab, 0 Refill(s), Pharmacy: [facility] [id number] Start Date: 03/01/18 Stop Date: 05/21/18 Status: DiscontinuedLasix 20 mg, 1 tab, Route: PO, Drug form: TAB, Daily, Dosing Weight 95.004, kg, Start date: 03/02/18 9:00:00 GROUNDMAN, 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, Stop date: 03/31/18 9:00:00 GROUNDMAN Notes: (Same as: Lasix) May cause GI upset. Give with food or milk. Start Date: 03/02/18 Stop Date: 03/01/18 Status: Canceledlisinopril 5 mg, 1 tab, Route: PO, Drug form: TAB, Daily, Dosing Weight 95.004, kg, Priority: NOW, Start date: 02/28/18 9:24:00 GROUNDMAN, 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, Stop date: 9:00:00 GROUNDMAN Notes: (Same as: Prinivil, Zestril) Start Date: 02/28/18 Stop Date: 03/01/18 Status: Discontinuedmetoprolol extended release 25 mg, 1 tab, Route: PO, Drug form: ERTAB, Daily, Priority: NOW, Start date: 9:24:00 GROUNDMAN, 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, Stop date: 03/30/18 9:00:00 GROUNDMAN Notes: (Same as: Toprol XL) Do Not Crush Start Date: 02/28/18 Stop Date: 03/01/18 Status: Discontinuedmirtazapine 15 mg, 1 tab, Route: PO, Drug form: TAB, Bedtime, Dosing Weight 95.004, kg, Start date: 02/28/18 21:00:00 GROUNDMAN, 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, Stop date: 03/29/18 21:00: 00 GROUNDMAN Notes: (Same as:Remeron) Start Date: 02/28/18 Stop Date: 03/01/18 Status: Discontinuedmultivitamin with minerals 1 tab, Route: PO, Drug Form: TAB, Dosing Weight 95.004, kg, Daily, Start date: 03/01/18 9:00:00 GROUNDMAN,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, Stop date: 03/30/18 9:00:00 GROUNDMAN Notes: (Same as:Thera-M, Theragran-M)WASTE: F/P - Black; E - Municipal Trash Bin Give with food. Start Date: 03/01/18 Stop Date: 03/01/18 Status: Discontinuedpotassium chloride 20 mEq, 1 tab, Route: PO, Drug form: ERTAB, ONCE, Dosing Weight 95.004, kg, Start date: 03/01/18 12:32:00 GROUNDMAN, Stop date: 03/01/18 12:32:00 GROUNDMAN Notes: (Same as: K-Dur 20)"Do Not Crush" Give with food and full glass of waterFor patients unable to swallow tablet, dissolve in one half glass of water. Allow about 2 minutes for the tablets to disintegrate. Stir before giving to prepare slurry and administer.Please exclude Patients with feedingtube less than 14 Czech (Dobhoff, J-tube etc) and pediatric and patients. Start Date: 03/01/18 Stop Date: 03/01/18 Status: Completedpotassium chloride 20 mEq, 1 tab, Route: PO, Drug form: ERTAB, ONCE, Dosing Weight 95.004, kg, Start date: 03/01/18 10:19:00 GROUNDMAN, Stop date: 03/01/18 10:19:00 GROUNDMAN Notes: (Same as: K-Dur 20)"Do Not Crush" Give with food and full glass of waterFor patients unable to swallow tablet, dissolve in one half glass of water. Allow about 2 minutes for the tablets to disintegrate. Stir before giving to prepare slurry and administer.Please exclude Patients with feedingtube less than 14 Czech (Dobhoff, J-tube etc) and pediatric and patients. Start Date: 03/01/18 Stop Date: 03/01/18 Status: CompletedRocephin 1 g injection 2 gm, IV, Q24H, X 14 day, # 14 ea, 0 Refill(s), other Start Date: 03/01/18 Stop Date: 03/15/18 Status: CompletedSaline Flush 0.9% 10 ml, Route: IVP, Drug Form: INJ, Dosing Weight 83.182, kg, PRN, PRN Line Flush , Start date: 02/28/18 2:24:00 GROUNDMAN, 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, Stop date: 03/30/18 2:23: 00 GROUNDMAN Notes: (Same as: BD Posiflush) Start Date: 02/28/18 Stop Date: 03/01/18 Status: DiscontinuedSaline Flush 0.9% 10 ml, Route: IVP, Drug Form: INJ, Dosing Weight 83.182, kg, Q12H, Start date: 02/28/18 9:00:00 GROUNDMAN,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, Stop date: 03/29/18 21:00:00 GROUNDMAN Notes: (Same as: BD Posiflush) Start Date: 02/28/18 Stop Date: 03/01/18 Status: Discontinuedtrazodone 50 mg oral tablet 150 mg, 3 tab, Route: PO, Drug form: TAB, Bedtime, Dosing Weight 95.004, kg, Start date: 02/28/18 21:00:00 GROUNDMAN, 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, Stop date: 03/29/18 21:00: 00 GROUNDMAN Notes: (Same As: Vikasyrel) Start Date: 02/28/18 Stop Date: 03/01/18 Status: Discontinuedvancomycin 1.25 gm, 250 mL, Route: IVPB, Drug form: INJ, Q12H, Dosing Weight 95.004, kg, Priority: NOW, Start date: 02/28/18 9:24:00 GROUNDMAN, 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, Stop date: 9:00:00 GROUNDMAN, ABX Indication: Skin/Soft Tissue Infection Notes: TIME CRITICAL MEDICATIONSame as: Vancocin-NS (premixed)Infusion rate< 1000 mg: infuse over1 [id number] - 1500 mg: infuse over 1.5 [id number] - 2000 mg: infuse over 2 hours> 2001 mg: infuse over 2.5 hours Start Date: 02/28/18 Stop Date: 03/01/18 Status: Discontinued Results Most recent to oldest [Reference Range]: 1 2 Neutrophils # [1.5-8.1 K/CMM] 8.1 K/CMM (03/01/18 4:47 AM) Lymphocytes # [1.0-5.5 K/CMM] 1.4 K/CMM (03/01/18 4:47 AM) Monocytes # [0.0-0.8 K/CMM] 0.8 K/CMM (03/01/18 4:47 AM) BNP [<=100 pg/mL] 288 pg/mL *HI* (03/01/18 4:47 AM) eGFR 97 mL/min/1.73m2 1 96 mL/min/1.73m2 2 *NA* *NA* (03/01/18 4:47 AM) (02/28/18 10:12 AM) A/G Ratio [0.7-1.6] 0.5 0.5 *LOW* *LOW* (03/01/18 4:47 AM) (02/28/18 10:12 AM) Albumin Lvl [3.5-5.0 g/dL] 2.3 g/dL 2.5 g/dL *LOW* *LOW* (03/01/18 4:47 AM) (02/28/18 10:12 AM) Alk Phos [39-136 unit/L] 100 unit/L 132 unit/L (03/01/18 4:47 AM) (02/28/18 10:12 AM) ALT [0-65 unit/L] 14 unit/L 20 unit/L (03/01/18 4:47 AM) (02/28/18 10:12 AM) AGAP [10.0-20.0 mEq/L] 10.3 mEq/L 13.8 mEq/L (03/01/18 4:47 AM) (02/28/18 10:12 AM) AST [0-37 unit/L] 9 unit/L 15 unit/L (03/01/18 4:47 AM) (02/28/18 10:12 AM) B/C Ratio [6-25] 17 7 (03/01/18 4:47 AM) (02/28/18 10:12 AM) Basophils [0.0-1.0 %] 0.4 % (03/01/18 4:47 AM) BUN [7-22 mg/dL] 14 mg/dL 6 mg/dL (03/01/18 4:47 AM) *LOW* (02/28/18 10:12 AM) Calcium Lvl [8.5-10.5 mg/dL] 8.3 mg/dL 8.8 mg/dL *LOW* (02/28/18 10:12 AM) (03/01/18 4:47 AM) Chloride Lvl [95-109 mEq/L] 107 mEq/L 108 mEq/L (03/01/18 4:47 AM) (02/28/18 10:12 AM) CO2 [24-32 mEq/L] 29 mEq/L 23 mEq/L (03/01/18 4:47 AM) *LOW* (02/28/18 10:12 AM) Creatinine Lvl [0.50-1.40 mg/dL] 0.81 mg/dL 0.83 mg/dL (03/01/18 4:47 AM) (02/28/18 10:12 AM) Globulin [2.7-4.2 g/dL] 4.4 g/dL 5.0 g/dL *HI* *HI* (03/01/18 4:47 AM) (02/28/18 10:12 AM) Glucose Lvl [70-99 mg/dL] 128 mg/dL 153 mg/dL *HI* *HI* (03/01/18 4:47 AM) (02/28/18 10:12 AM) Hct [42.0-54.0 %] 27.0 % *LOW* (03/01/18 4:47 AM) Hgb [14.0-18.0 g/dL] 8.8 g/dL *LOW* (03/01/18 4:47 AM) Potassium Lvl [3.5-5.1 mEq/L] 3.3 mEq/L 3.8 mEq/L *LOW* (02/28/18 10:12 AM) (03/01/18 4:47 AM) Lymphocytes [20.0-40.0 %] 13.4 % *LOW* (03/01/18 4:47 AM) MCH [27.0-31.0 pg] 25.8 pg *LOW* (03/01/18 4:47 AM) MCHC [32.0-36.0 g/dL] 32.7 g/dL (03/01/18 4:47 AM) MCV [80.0-94.0 fL] 78.7 fL *LOW* (03/01/18 4:47 AM) Magnesium Lvl [1.8-2.4 mg/dL] 2.2 mg/dL 2.1 mg/dL (03/01/18 4:47 AM) (02/28/18 10:12 AM) Microcyte [None Seen] 1+ *ABN* (03/01/18 4:47 AM) Monocytes [2.0-12.0 %] 7.9 % (03/01/18 4:47 AM) MPV [7.4-10.4 fL] 8.2 fL (03/01/18 4:47 AM) Sodium Lvl [135-145 mEq/L] 143 mEq/L 141 mEq/L (03/01/18 4:47 AM) (02/28/18 10:12 AM) Phosphorus [2.5-4.5 mg/dL] 3.3 mg/dL 2.9 mg/dL (03/01/18 4:47 AM) (02/28/18 10:12 AM) Platelet [133-450 K/CMM] 475 K/CMM *HI* (03/01/18 4:47 AM) Segs [45.0-75.0 %] 78.3 % *HI* (03/01/18 4:47 AM) Total Protein [6.4-8.4 g/dL] 6.7 g/dL 7.5 g/dL (03/01/18 4:47 AM) (02/28/18 10:12 AM) RBC [4.70-6.10 M/CMM] 3.42 M/CMM *LOW* (03/01/18 4:47 AM) RDW [11.5-14.5 %] 17.9 % *HI* (03/01/18 4:47 AM) Bili Total [0.2-1.3 mg/dL] 0.7 mg/dL 0.2 mg/dL (03/01/18 4:47 AM) (02/28/18 10:12 AM) Troponin-I [0.00-0.40 ng/mL] <0.02 ng/mL (02/28/18 10:12 AM) WBC [3.7-10.4 K/CMM] 10.3 K/CMM (03/01/18 4:47 AM) 1Result Comment: The eGFR is calculated [...] 08/16/18 Assessment and Plan Extracted from: Title: Cardiology Progress Author: Hector Ahuja MD Date: 03/01/18 [facility] Cardiology Elisha Hendrix Schutt, [place], [place] [address] [place] [address] Progress Note Cardiology Subjective: No acute events overnight. Sleeping very soundly this AM on my rounds. No reports of angina or breathing trouble. Objective:Vitals Tmp(F) Pulse BP RR SpO2 FIO2 03/01 10:00 ---- 70 109/62 -- 95 --- 03/01 09:00 ---- 68 103/69 -- 93 --- 03/01 08:00 98.1 70 ----- -- 94 --- 03/01 07:00 ---- 71 91/58 -- 92 --- 03/01 05:42 98 --- ----- -- --- --- 24 Hr Tmax: 98.2F (36.78c) at 02/28 22:35 Vital Signs are the last 5 in the past 48 hours. GENERAL: Pleasant, comfortable EYES: Extra ocular movements are intact. There is no lid lag. Sclera is anicteric. ENT: Oropharynx is clear. Dentition is within normal limits. NECK: JVP <8 cm H20. No carotid bruits. HEART: RRR. No overt murmurs. LUNGS: Coarse breath sounds. ABDOMEN: The abdomen is soft, nontender, and nondistended. The abdominal aorta is nonpalpable. EXTREMITIES: No clubbing, cyanosis, or edema. PULSES: Right radial pulse is significantly diminished. Left radial pulse 2+. NEUROLOGIC: The patient was oriented to person, place, and time. No overt neurologic deficits were detected. PSYCH: Normal judgment and insight, mood is appropriate. Scheduled Meds (16): 02/28/18 DULoxetine 30 mg PO Daily 02/28/18 atorvastatin 80 mg PO Bedtime 02/28/18 busPIRone 10 mg PO BID 02/28/18 cefTRIAXone + Sodium Chloride 0.9% IV 100 mL 2 gm IVPB [id number] 200 ml/ hr 02/28/18 clopidogrel 75 mg PO Daily 02/28/18 enoxaparin 40 mg SUB-Q Daily 02/28/18 ferrous sulfate 325 mg PO Daily 03/02/18 furosemide (Lasix) 20 mg PO Daily 02/28/18 lisinopril 5 mg PO Daily 02/28/18 metoprolol (metoprolol extended release) 25 mg PO Daily 02/28/18 mirtazapine 15 mg PO Bedtime 03/01/18 multivitamin with minerals 1 tab PO Daily 02/28/18 nutritional supplement (Beneprotein 7 gm pkt) 1 pkt PO BID-Before Meals 02/28/18 sodium chloride (Saline Flush 0.9%) 10 ml IVP Q12H 02/28/18 trazodone (trazodone 50 mg oral tablet) 150 mg PO Bedtime 02/28/18 vancomycin 1.25 gm IVPB Q12H 166.67 ml/hr Continuous Infusions: None I&O Record In Out Bal 03/01 24hr Tot [id number] 02/28 24hr Tot [id number] Labs (Last four charted values) WBC 10.3 (MAR 01) Hgb L 8.8 (MAR 01) Hct L 27.0 (MAR 01) Plt H 475 (MAR 01) Na 143 (MAR 01) 141 (FEB 28) K L 3.3 (MAR 01) 3.8 (FEB 28) CO2 29 (MAR 01) L 23 (FEB 28) Cl 107 (MAR 01) 108 (FEB 28) Cr 0.81 (MAR 01) 0.83 (FEB 28) BUN 14 (MAR 01) L 6 (FEB 28) Glucose Random H 128 (MAR 01) H 153 (FEB 28) Mg 2.2 (MAR 01) 2.1 (FEB 28) Phos 3.3 (MAR 01) 2.9 (FEB 28) Ca L 8.3 (MAR 01) 8.8 (FEB 28) Troponin <0.02 (FEB 28) Assessment: 1. Acute on chronic systolic and diastolic CHF 2. Hx of sternal wound infection (Fall 2017) - s/p sternal wire removal by Dr. Evan Sullivan in February 2018 3. Ischemic cardiomyopathy - EF 40-45% with apical hypokinesis 4. History of four-vessel CABG on November 02, 2017. Performed at [facility]. 5. Hypertension 6. Hyperlipidemia 7. Extensive prior tobacco abuse Plan: Mr. Luna is much improved. I think his presentation was due to volume overload from fluid and sodium in IV antibiotics. Will transition to PO Lasix. Follow up repeat CXR. If he can ambulate and is fee ling well, could be considered for discharge on PO Lasix from my standpoint. He would need to follow up in my Clinic in about 2-3 weeks time. Please call with any questions or concerns. Hector Ahuja M.D. Interventional Cardiology [email or web address] Extracted from: Title: Cardiology Consultation Author: Hector Ahuja MD Date: 02/28/18 [facility] Cardiology Elisha Hendrix Schutt, [place], [place] [address] [place] [address] Initial Cardiology Consultation Referring physician: Dr. Gage CC: SOB HPI: is a very pleasant man who is seen in the [facility]. His sister is not here with him today. He is actually from [place], [place]. He is single and has a grown daughter that lives in [place]. He jones s 5 sisters and one brother that all live in the [facility] area. He works in [employer] and previously worked for [employer]. He has really had a rough year. He has had progressiv e fatigue and dyspnea. He was diagnosed with severe multivessel coronary disease in the summer of this year. He also tells me that he had some kind of "hole in his heart". He underwent four-vessel CA BG at the end of October 2017 at [facility]. He failed to thrive since that time. His breathing is continued to decline. He has been admitted several times to other hospitals since his CABG with "negative" work-ups. 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 Dr. Sullivan debrided his sternum and removed his sternal wires. He was hospitaliz ed for about 10 days and was discharged home with IV abx. He felt much improved after sternal washout and removal of sternal wires. Over the last several days, he has had progressive SOB. His appetite has been good but he was quite breathless. His breathing became short at rest and he was eventually taken to local ED. He was found t o have evidence of volume overload with bilateral pleural effusions and pulmonary edema. He was started on IV Lasix and transferred here. This AM, he is feeling better. He denies any active chest pain o r breathing trouble. He specifically denies LE edema, syncope or palpitations. He is compliant with his cardiac program without apparent medication intolerance. He previously used tobacco products but quit in the summer 2017. Past Medical History: No qualifying data available Surgical History:CABG - Coronary artery bypass graft: 11/02/17 Repair of umbilical hernia CABG x 4 - Coronary artery bypass grafts x 4 Family History: Mother: Heart failure Brother: Cancer, Lung Social History: Alcohol Details: Past Tobacco Details: Use: Former smoker. Tobacco smoke exposure: None. Did the Patient Smoke Cigarettes Anytime During the Last 365 Days? No. Cessation Counseling Provided? No. Details: Use: Former smoker. Tobacco smoke exposure: None. Did the Patient Smoke Cigarettes Anytime During the Last 365 Days? No. Cessation Counseling Provided? No. Review of Systems: all systems reviewed and negative except as mentioned in the HPI. Objective:Allergies: iodine, penicillin, penicillins Home Meds: Vitals Tmp(F) Pulse BP RR SpO2 FIO2 02/28 16:00 97.6 --- ----- -- --- --- 02/28 15:02 ---- --- ----- -- 93 --- 02/28 14:00 ---- 82 126/85 -- 92 --- 02/28 12:00 98.0 83 128/92 -- 94 --- 02/28 10:00 ---- 81 145/94 -- 92 --- 24 Hr Tmax: 98.4F (36.89c) at 02/28 04:30 Vital Signs are the last 5 in the past 48 hours. GENERAL: Pleasant, comfortable EYES: Extra ocular movements are intact. There is no lid lag. Sclera is anicteric. ENT: Oropharynx is clear. Dentition is within normal limits. NECK: JVP <8 cm H20. No carotid bruits. HEART: RRR. No overt murmurs. LUNGS: Coarse breath sounds. ABDOMEN: The abdomen is soft, nontender, and nondistended. The abdominal aorta is nonpalpable. EXTREMITIES: No clubbing, cyanosis, or edema. PULSES: Right radial pulse is significantly diminished. Left radial pulse 2+. NEUROLOGIC: The patient was oriented to person, place, and time. No overt neurologic deficits were detected. PSYCH: Normal judgment and insight, mood is appropriate. Scheduled Meds (16): 02/28/18 DULoxetine 30 mg PO Daily 02/28/18 atorvastatin 80 mg PO Bedtime 02/28/18 busPIRone 10 mg PO BID 02/28/18 cefTRIAXone + Sodium Chloride 0.9% IV 100 mL 2 gm IVPB [id number] 200 ml/ hr 02/28/18 clopidogrel 75 mg PO Daily 02/28/18 enoxaparin 40 mg SUB-Q Daily 02/28/18 ferrous sulfate 325 mg PO Daily 02/28/18 furosemide 40 mg IVP Q12H 02/28/18 lisinopril 5 mg PO Daily 02/28/18 metoprolol (metoprolol extended release) 25 mg PO Daily 02/28/18 mirtazapine 15 mg PO Bedtime 03/01/18 multivitamin with minerals 1 tab PO Daily 02/28/18 nutritional supplement (Beneprotein 7 gm pkt) 1 pkt PO BID-Before Meals 02/28/18 sodium chloride (Saline Flush 0.9%) 10 ml IVP Q12H 02/28/18 trazodone (trazodone 50 mg oral tablet) 150 mg PO Bedtime 02/28/18 vancomycin 1.25 gm IVPB Q12H 166.67 ml/hr Continuous Infusions: None I&O Record In Out Bal 02/28 24hr Tot 364 0 364 02/27 24hr Tot 3 0 3 Labs (Last four charted values) Na 141 (FEB 28) K 3.8 (FEB 28) CO2 L 23 (FEB 28) Cl 108 (FEB 28) Cr 0.83 (FEB 28) BUN L 6 (FEB 28) Glucose Random H 153 (FEB 28) Mg 2.1 (FEB 28) Phos 2.9 (FEB 28) Ca 8.8 (FEB 28) Troponin <0.02 (FEB 28) ECG: reviewed CXR: reviewed CTA Chest: reviewed Assessment: 1. Acute on chronic systolic and diastolic CHF 2. Hx of sternal wound infection (Fall 2017) - s/p sternal wire removal by Dr. Evan Sullivan in February 2018 3. Ischemic cardiomyopathy - EF 40-45% with apical hypokinesis 4. History of four-vessel CABG on November 02, 2017. Performed at [facility]. 5. Hypertension 6. Hyperlipidemia 7. Extensive prior tobacco abuse Plan: - C/w IV diuresis overnight. - Ok to transfer to . - Repeat CXR in AM - Will follow with you. Thank you for involving me in the care of this very nice patient. Please call with any questions or concerns. Sincerely, Hector Ahuja M.D. Interventional Cardiology [email or web address] Extracted from: Title: [id number] Author: Concetta Gage MD Date: 02/28/18 Impression and Plan Recurrent shortness of breath, possible CHF exacerbation Possible exacerbation of CHF, versus possible pulmonary embolism Recent chest wall surgical site infection, status post wound VAC, on antibiotics History of coronary artery disease Admit to IMCU for now Patient being premedicated for CT scan Follow-up on CT scan results ID consultation for continued antibiotics secondary to wound infection Surgical assistance for wound VAC Cardiology consultation for possible CHF Trend cardiac enzymes Monitor daily weights, strict I's and O's Continue with Lasix at 40 mg IV push daily Follow-up on repeat chest x-ray post IV diuresis Incentive spirometry DVT prophylaxis Lovenox
--- OUTSIDE RECORDS SUMMARY | 2018-09-24 23:14 | XMS REPORT | Summary of Care ---
:1955 Author Organization [facility] Address [address] [place] [id number]- Encounter [facility] [place]([place]) [phone] Date(s): 06/21/18 - 06/21/[address] [address]- Discharge Disposition: Home or Self Care Attending Physician: Pepito Vasquez MD Referring Physician: Pepito Vasquez MD Vital Signs Most recent to oldest [Reference Range]: 1 Height 185.42 cm (06/19/18 5:53 AM) Weight 79.545 kg (06/19/18 5:53 AM) Body Mass Index 23.14 m2 (06/19/18 5:53 AM) Problem List Condition Effective Dates Status Health Status Informant CAD (coronary artery Active disease)(Confirmed) HLD (hyperlipidemia)(Confirmed) Active HTN (hypertension)(Confirmed) Active Allergies, Adverse Reactions, Alerts Substance Reaction Severity Status penicillins Active NKFA Active iodine1 contrast dye Active 1hives Medications doxycycline + Sodium Chloride 0.9% IV 25 mL 500 mg, Route: INTRAPLEURAL, Drug form: PDR/INJ, ONCE, Dosing Weight 79.545, kg , Start date: 06/21/18 13:35:00 CDT, Stop date: 06/21/18 13:35:00 CDT Notes: (Same as: Vibramycin) Start Date: 06/21/18 Stop Date: 06/21/18 Status: Ordered Results Microbiology Reports TEST:Culture: Anaerobic STATUS:Order in Progress BODY SITE:Chest SOURCE:Drainage COLLECTED DATE/TIME:06/21/18 3:00 PMPRELIMINARY REPORTCulture In ProgressTEST:Culture: Aspirate/Body Fluid/Tissue STATUS:Order in Progress BODY SITE:Chest SOURCE:Drainage COLLECTED DATE/TIME:06/21/18 3:00 PMPRELIMINARY REPORTNo Growth; Holding STAIN REPORTRare WBC's No Organisms Seen Immunizations No data [...] Reg Smoking Cessation Counseling No entered on: 06/20/18 Assessment and Plan No data available for this section
--- NOTE | 2018-09-25 13:26 | ER ---
Nurse's Notes [facility] Name: Fred Hardy Age: 62 yrs Sex: Male : 1955 Arrival Date: 09/24/2018 Time: 23:06 Bed External Waiting Private MD: Diagnosis: Presentation: 09/25 13:26 Note Pt stated he felt better and left the ED within 5 minutes of signing in to be seen enoch per registration staff Shivani Luna. ED Course: 09/24 23:06 Patient arrived in ED. ds1 Administered Medications: No medications were administered Outcome: 09/25 13:27 Patient left the ED. [email or web address] Signatures: Juilenne Acuña RN RN Shivani Segura
== END 2018-09-25 13:27 | disposition left against medical advice (07) ==
LOC: ER 23:01
DX: Z53.21 Procedure and treatment not carried out due to patient leaving prior to being seen by health care provider (principal)

== ENCOUNTER 2020-09-11 00:58 | Emergency (ER) | payer BC, OTHER ==
--- OUTSIDE RECORDS SUMMARY | 2020-09-11 01:11 | XMS REPORT | Continuity of Care Document ---
:1955 Author Organization [facility] t Address [address] [place] [address] Care Team Providers Name Role Phone Sharpless Primary Care Physician Arian Gallardo DO Attending Clinician Tin KNUTSON Attending Clinician Ivett Land Attending Clinician Willie Vasquez Attending Clinician Eddy Attending Clinician Bradley Bernal Attending Clinician Guilherme Ahuja Attending Clinician Bradley Oneal Attending Clinician Dre Rush Attending Clinician Dick Medina Attending Clinician Gia Hastings Attending Clinician Ivett Land Admitting Clinician Eddy Admitting Clinician Bradley Bernal Admitting Clinician Dre Rush Admitting Clinician Gia Hastings Admitting Clinician Problems Condition Condition Condition Status Onset Resolution Last Treating Co mments Source Name Details Category Date Date Treatment Clinician Date CHOLECYSTI Diagnosis Active 2018-08-17 Memoria TIS 6-13 09:57:00 l 00:00: [place] CHOLECYSTI 00 TIS Active 08/15/2018 [facility] ABDOMINAL Diagnosis Active 2018-08-16 Memoria PAIN 6-13 02:35:00 l 00:00: [place] ABDOMINAL 00 PAIN Active 08/15/2018 [facility] BLAYNE-SEROMA Diagnosis Active 2018-06-21 Memoria 4-16 10:59:00 l 00:00: [place] BLAYNE-SEROMA 00 Active 06/18/2018 [facility] CHEST PAIN Diagnosis Active 2018-06-03 Memoria 3-31 15:02:00 l CHEST 00:00: [place] PAIN 00 Active 06/02/2018 [facility] STERNAL Diagnosis Active 2018-05-19 Me moria OSTEOMYELI 3-07 06:57:00 l TIS STERNAL 00:00: [place] OSTEOMYELI 00 TIS Active 05/09/2018 [facility] M86.61 - Diagnosis Active 2018-04-08 M emoria OTHER 2-01 13:48:00 l CHRONIC M86.61 - 00:01: Marcia nn OSTEOMYELI OTHER 00 TIS, S CHRONIC OSTEOMYELI TIS, S Active 04/05/2018 [facility] SHORTNESS Diagnosis Active 2017-032018-02-28 Memoria OF BREATH 2- 03:46:00 l 00:00: [place] SHORTNESS 00 OF BREATH Active 02/27/2018 [facility] ACUTE Diagnosis Active 2017-032018-03-07 Mem oria EXACERBATI 2- 22:14:00 l ON OF ACUTE 00:00: [place] CONGESTIVE EXACERBATI 00 HEART F ON OF CONGESTIVE HEART F Active 02/27/2018 [facility] DIFFICULTY Diagnosis Active 2017-032018-02-27 Memoria BREATHING 2- 23:09:00 l 00:00: [place] DIFFICULTY 00 BREATHING Active [facility], Diagnosis Active 2017-2018-02-28 Mem oria TACHYCARDI 04-16 22:16:00 l A SOB, 00:00: [place] TACHYCARDI 00 A Active 02/13/2018 [facility] CVA CVA Disease Active [facility] ([facility]rebral ([facility]rebral [facility] - vascular vascular 00:00: Medica l accident) accident) 00 Cent [facility] Essential Essential Disease Active [facility] hypertensi hypertensi 6-25 Trena kes - on with on with 00:00: Medical goal blood goal blood 00 Ce nter pressure pressure less than less than 140/90 140/90 Cocaine Cocaine Disease Active [facility] abuse abuse 6[facility] 00 [place] Tobacco Tobacco Disease Active [facility] abuse abuse 6-25 [facility] 00 [place] Left Left Disease Active [facility] hemiparesi hemiparesi 6-24 [facility] - s s 00:00: Medical 00 [place] Other Problem 2018-10-24 Memor ia nonspecifi 11:25:49 l c abnormal Other Marcia nn finding of nonspecifi lung field c abnormal finding of lung field 10/24/2018 [facility] Infection Problem 2018-10-24 Me moria following 11:25:49 l a [place] procedure, Infection other following surgical a site, procedure, initial other encounter surgical site, initial encounter 10/24/2018 [facility] Localized Problem 2018-10-24 Me moria enlarged 11:25:49 l lymph [place] nodes Localized enlarged lymph nodes 10/24/2018 [facility] Other Problem 2018-10-24 Memor ia specified 11:25:49 l postproced Other Marcia nn ural specified states postproced ural states 10/24/2018 [facility] Presence Problem 2018-10-24 Mem oria of 11:25:49 l aortocoron Presence He rmann juana bypass of graft aortocoron juana bypass graft 10/24/2018 Bradley Oliveros [facility] Fluid Problem 2018-09-17 Memor ia overload, 12:21:37 l unspecifie Fluid Marcia nn d overload, unspecifie d 09/17/2018 [facility] Erythemato Problem 2018-09-17 M emoria us 12:21:37 l condition, Arsenio n unspecifie Erythemato d us condition, unspecifie d 09/17/2018 [facility] Allergy Problem 2018-09-17 Kuldeep teto status to 12:21:37 l penicillin Allergy Her fernandes status to penicillin 09/17/2018 [facility] Other long Problem 2018-09-17 M emoria term 12:21:37 l (current) Other Arsenio n drug intermediate manager therapy (current) drug therapy 09/17/2018 [facility] Family Problem 2018-09-17 Memor ia history of 12:21:37 l ischemic Family Arsenio n heart history of disease ischemic and other heart diseases disease of the and other irs agent diseases y system of the irs agent y system 09/17/2018 [facility] 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 09/18/2018 [facility] Acute Problem 2018-09-10 Memor ia posthemorr 14:31:25 l hagic Acute [place] anemia posthemorr hagic anemia 09/10/2018 [facility] Osteomyeli Problem 2018-09-18 M emoria tis, 14:04:56 l unspecifie Arsenio n d Osteomyeli tis, unspecifie d 09/18/2018 [facility] 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 Essential Problem 2018-09-10 Me moria (primary) 14:31:25 l hypertensi Arsenio n on Essential (primary) hypertensi on 09/10/2018 [facility] Hyperlipid Problem 2018-09-18 M emoria emia, 14:04:56 l unspecifie Arsenio n d Hyperlipid emia, unspecifie d 09/18/2018 [facility] Personal Problem 2018-09-18 Mem oria history of 14:04:56 l nicotine Personal Herm ladi dependence history of nicotine dependence 09/18/2018 Bradley Drew [facility] Major Problem 2018-09-10 Memor ia depressive 14:31:25 l disorder, Major Arsenio n single depressive episode, disorder, unspecifie single d episode, unspecifie d 09/10/2018 [facility] Anxiety Problem 2018-09-10 Kuldeep teto disorder, 14:31:25 l unspecifie Anxiety Her fernandes d disorder, unspecifie d 09/10/2018 [facility] Insomnia, Problem 2018-09-10 Me moria unspecifie 14:31:25 l d [place] Insomnia, unspecifie d 09/10/2018 [facility] Ischemic Problem 2018-09-18 Mem oria cardiomyop 14:04:56 l athy Ischemic Arsenio n cardiomyop athy 9 [facility] Constipati Problem 2018-09-10 M emoria on, 14:31:25 l unspecifie Arsenio n d Constipati on, unspecifie d 09/10/2018 [facility] Radiograph Problem 2018-09-18 M emoria ic dye 14:04:56 l allergy [place] status Radiograph ic dye allergy status [facility] Shortness Problem 2018-09-18 Me moria of breath 14:04:56 l [place] Shortness of breath 09/18/2018 Bradley Drew [facility] Atelectasi Problem 2018-09-18 M emoria s 14:04:56 l [place] Atelectasi s 09/18/2018 [facility] Cellulitis Problem 2018-09-18 M emoria of chest 14:04:56 l wall [place] Cellulitis of chest wall 9 [facility] Acute on Problem 2018-09-18 Mem oria chronic 14:04:56 l combined Acute on Herm ladi systolic chronic (congestiv combined e) and systolic diastolic (congestiv (congestiv e) and e) heart diastolic failure (congestiv e) heart failure 09/18/2018 [facility] Frequency Problem 2018-09-18 Me moria of 14:04:56 l micturitio Arsenio n n Frequency of micturitio n 09/18/2018 [facility] Localized Problem 2018-09-18 Me moria edema 14:04:56 l [place] Localized edema 09/18/2018 [facility] Body mass Problem 2018-09-18 Me moria index 14:04:56 l (BMI) Body [place] 27.0-27.9, mass index adult (BMI) 27.0-27.9, adult 09/18/2018 [facility] Coronary Problem Active 2018-10-24 Mem oria arterioscl 11:25:49 l erosis Coronary Arsenio n (disorder) arterioscl erosis (disorder) Active Problem 10/24/2018 [facility] Hyperlipid Problem Active 2018-10-24 M emoria emia 11:25:49 l (disorder) Arsenio n Hyperlipid emia (disorder) Active Problem 10/24/2018 [facility] Hypertensi Problem Active 2018-10-24 M emoria ve 11:25:49 l disorder, Se[place] systemic Hypertensi arterial ve (disorder) disorder, systemic arterial (disorder) Active Problem 10/24/2018 [facility] ILLNESS, Diagnosis Active 2018-05-19 M emoria UNSPECIFIE 06:57:00 l D ILLNESS, Arsenio n UNSPECIFIE D Active [facility] POSTPROC Diagnosis Active 2018-06-03 M emoria SEROMA OF 15:02:00 l SKIN, POSTPROC Arsenio n SUBCU SEROMA OF FOLLOWING SKIN, SUBCU FOLLOWING Active [facility] ACUTE Diagnosis Active 2018-08-17 Mem oria CHOLECYSTI 09:57:00 l TIS ACUTE [place] CHOLECYSTI TIS Active [facility] HEART Diagnosis Active 2018-03-07 Mem oria FAILURE, 22:14:00 l UNSPECIFIE HEART Marcia nn D FAILURE, UNSPECIFIE D Active [facility] History of Past Illness Condition Condition Condition Status Onset Resolution Last Treating Co mments Source Name Details Category Date Date Treatment Clinician Date Other Problem 2018-2018-10-24 2018-10-24 M emoria acute 2-06 11:25:49 11:25:49 l osteomyeli Other 06:03: Marcia nn tis, other acute 01 site osteomyeli tis, other site 04/10/2018 10/24/2018 [facility] Hypertensi Problem 2018-09-18 2018-09-18 Memoria ve heart 06-26 14:04:56 14:04:56 l disease 05:04: Seymour with heart Hypertensi 24 failure ve heart disease with heart failure 06/26/2018 09/18/2018 [facility] Allergies, Adverse Reactions, Alerts Allergy Allergy Status Severity Reaction(s) Onset Inactive Treating Comm ents Source Name Type Date Date Clinician penicill penicill Active Memori a ins ins l [place] penicill penicill Active Memori a in<sup>1 in<sup>1 l </sup> </sup> [place] iodine<s iodine<s Active Memori a up>2</montoya up>2</montoya l p> p> [place] NKFA NKFA Active Memoria l [place] Family History Family Member Diagnosis Comments Start Date Stop Date Source Natural father Diabetes [facility] Natural father Hypertension [facility] Natural father Stroke [facility] Natural mother Diabetes [facility] Natural mother Hypertension [facility] Social History Social Habit Start Date Stop Date Quantity Comments Source Sex Assigned At [facility] History of tobacco Cigarette Smoker [facility] Social History 2018-08-16 2018-08-16 [facility] ermladi 07:52:22 07:52:22 Cigarettes smoked 2015-08-28 2015-08-28 [facility] - current (pack per 00:00:00 00:00:00 [facility] day) - Reported Alcohol intake 2015-08-28 2015-08-28 Current [facility] 00:00:00 00:00:00 non-drinker of Medical Ce nter alcohol (finding) Smoking Status Start Date Stop Date Source Current every day smoker 2015-08-28 00:00:00 [facility] Medications Ordered Filled Start Stop Current Ordering Indication Dosage Frequency Signature Comments Components Source Medication Medication Date Date Medication? Clinician (SIG) Name Name Docusate No Notes: Memoria -14 (Same as: l 14:00: Colace) Se[place]our 00 (Do Not Crush) gabapentin No Notes: Memor ia 300 MG Oral 6-14 (Same as: l Capsule 13:00: Neurontin) Herm ladi 00 Tylenol No Notes: Max Kuldeep teto 6-14 acetaminop l 11:00: hen 4000 [place] 00 mg/day (4 gm/day). (Same as: Tylenol Extra Strength) Lovenox No Notes: Memoria 6-14 (Same as: l 09:00: Lovenox) [place] 00 Isolyte S No Notes: Memori a PH 7.4 -14 (Same as: l 1,000 mL 08:15: Isolyte S Herm ladi 00 PH 7.4) tramadol No Notes: Not Mem oria hydrochlori 08-16 to exceed l de 50 MG 08:14: 400mg/day. Her fernandes Oral Tablet 00 (Same As: Ultram) Ondansetron No Notes: Kuldeep teto -14 (Same as: l 08:13: Zofran) [place] 00 MEDICATION WASTE Product Size: 4 mg Product Wasted: _0__ mg Glucagon No 1 mg, Memoria 08-16 Route: IM, l 08:13: Drug form: [place] 00 PDR/INJ, PRN, Dosing Weight 81.818, kg, PRN Blood Glucose Results, Start date: 08/16/18 3:13:00 CDT, 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, Stop date: 09/15/18 3:12:00 CDT Dextrose 2018-0 No 12.5 gm, Memor ia 50% Syringe 08-16 25 mL, l 08:13: Route: [place] 00 IVP, Drug Form: INJ, Dosing Weight 81.818, kg, PRN, PRN Blood Glucose Results, Start date: 08/16/18 3:13:00 CDT, 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, Stop date: 09/15/18 3:12:00 CDT Zofran 2018-0 No 4 mg, Memoria 08-16 Route: l 07:11: IVP, Drug [place] 00 form: INJ, ONCE, Dosing Weight 81.818, kg, Priority: STAT, Start date: 08/16/18 2:11:00 CDT, Stop date: 08/16/18 2:11:00 CDT Morphine 2019-0 No 4 mg, Memoria 6-14 Route: l 07:11: IVP, ONCE, Se[place]our Dosing Weight 81.818, kg, Priority: STAT, Start date: 08/16/18 2:11:00 CDT, Stop date: 08/16/18 2:11:00 CDT Doxycycline Yes Notes: Kuldeep teto 06-21 (Same as: l 18:35: Vibramycin Seymour ) Trazodone No Notes: Memori a Hydrochlori 06-04 (Same As: l de 50 MG 02:00: Desyrel) Marcia nn Oral Tablet atorvastati No Notes: Kuldeep teto n 06-04 (Same as: l 02:00: Lipitor) [place] doxycycline Yes 100 mg = 1 Memoria hyclate 100 06-03 tab, PO, l MG Oral 20:58: Q12H, X 14 Herm ladi Tablet 00 day, # 28 tab, 0 Refill(s), Pharmacy: [place] [id number] meropenem No Notes: Memori a 06-03 Same as l 18:00: Merrem [place] MEDICATION WASTE Product Size: 500 mg Product Wasted: ___ mg tramadol No Notes: Not Mem oria hydrochlori 06-03 to exceed l de 50 MG 17:30: 400mg/day. Her fernandes Oral Tablet 00 (Same As: Ultram) Doxycycline No Notes: Kuldeep teto 06-03 (Same as: l 15:10: Vibramycin [place] ) tramadol No Notes: Not Mem oria hydrochlori 06-03 to exceed l de 50 MG 14:00: 400mg/day. Her fernandes Oral Tablet 00 (Same As: Ultram) Aspirin 81 No Notes: Do Me moria MG Enteric 06-03 not crush l Coated 14:00: or chew. [place] Tablet (Same As: Ecotrin) Midodrine No Notes: Memori a 06-03 (Same l 14:00: as:Proamat [place] 00 ine) metoprolol No Notes: Memor ia extended 06-03 (Same as: l release 14:00: Toprol XL) Herm ladi 00 Do Not Crush Lisinopril No Notes: Memor ia - (Same as: l 14:00: Prinivil, [place]our 00 Zestril) duloxetine No Notes: Memor ia - (Same as: l 14:00: Cymbalta) Se[place]our (Do Not Crush) Docusate No Notes: Memoria Sodium 100 06-03 (Same as: l MG Oral 14:00: Colace) Se[place]our Capsule 00 (Do Not [Colace] Crush) clopidogrel No Notes: Kuldeep teto 06-03 (Same As: l 14:00: Plavix) [place] heparin No Notes: Memoria 06-03 porcine l 14:00: heparin Se[place]our 00 Buspirone No Notes: Memori a 06-03 (Same As: l 14:00: BuSpar) [place] tramadol No Notes: Not Mem oria hydrochlori 06-03 to exceed l de 50 MG 04:45: 400mg/day. Her fernandes Oral Tablet 00 (Same As: Ultram) Hydralazine No Notes: Kuldeep teto 06-03 (Same as: l 02:32: Apresoline [place] ) Push over 5 minutes Trazodone No Notes: Memori a 06-03 (Same As: l 02:19: Desyrel) [place] 00 Vancomycin No 2001 mg: Me moria 4- infuse l 00:00: over 2.5 [place] 00 hours For adult patients only: Round to nearest 250 mg per Medical Staff approval MEDICATION WASTE Product Size: 1000 mg Product Wasted: ___ mg cefepime No Notes: Memoria 06-03 (Same As: l 00:00: Maxipime) [place] MEDICATION WASTE Product Size: 1000 mg Product Wasted: ___ mg Docusate Yes 100 mg = 1 Mem oria Sodium 100 3-31 cap, PO, l MG Oral 23:50: Daily [place] Capsule 00 [Colace] Aspirin 81 Yes 81 mg = 1 Me moria MG Enteric 3-31 tab, PO, l Coated 23:49: Daily [place] Tablet 00 midodrine Yes 2.5 mg = 1 Me moria 2.5 mg oral 3-31 tab, PO, l tablet 23:49: Daily Glucagon No 1 mg, Memoria 06-02 Route: IM, l 22:10: Drug form: [place] 00 PDR/INJ, PRN, Dosing Weight 96.8, kg, PRN Blood Glucose Results, Start date: 06/02/18 17:10:00 CDT, 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, Stop date: 07/02/18 17:09:00 CDT Dextrose No 25 gm, 50 Kuldeep teto 50% Syringe 3-31 mL, Route: l 22:10: IVP, Drug Form: INJ, Dosing Weight 96.8, kg, PRN, PRN Blood Glucose Results, Start date: 06/02/18 17:10:00 CDT, 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, Stop date: 07/02/18 17:09:00 CDT Acetaminoph No Notes: Do M emoria en 06-02 not exceed l 22:10: 4 gm/day. (Same as: Tylenol) Melatonin No Notes: Memori a - (Same as: l 22:10: Melatonin) Ondansetron No Notes: Kuldeep teto -31 (Same as: l 22:10: Zofran) MEDICATION WASTE Product Size: 4 mg Product Wasted: ___ mg Trazodone Yes 50 mg = 1 Mem oria Hydrochlori 3-31 tab, PO, l de 50 MG 22:08: Bedtime Arsenio n Oral Tablet 00 tramadol Yes 100 mg = 2 Mem oria hydrochlori 3-31 tab, PO, l de 50 MG 22:08: Bedtime Arsenio n Oral Tablet 00 Metoprolol Yes 25 mg = 1 Me moria Succinate 3-31 tab, PO, l ER 25 mg 22:06: Daily [place] oral 00 tablet, extended release DULoxetine Yes 30 mg = 1 Me moria 30 mg oral 3-31 cap, PO, l delayed 22:06: Daily [place] release 00 capsule lisinopril Yes 2.5 mg = Mem oria 5 mg oral 3-19 0.5 tab, l tablet 15:58: PO, Daily, Marcia # 30 tab, 0 Refill(s), Pharmacy: [place] [id number] Vancomycin No 2000 mg: Me moria 3-18 infuse l 23:00: over 2.5 hours For adult patients only: Round to nearest 250 mg per Medical Staff approval MEDICATION WASTE Product Size: 1000 mg Product Wasted: ___ mg Fleet Enema No 133 mL, Mem oria 3-17 Route: LA, l 22:12: Drug Form: CARLOZ, Dosing Weight 80.909, kg, ONCE, Start date: 05/19/18 17:12:00 CDT, Stop date: 05/19/18 17:12:00 CDT Naloxone No Notes: Memoria 3-15 Same as l 19:11: Narcan Romazicon Yes Notes: Memori a 3-15 (Same as: l 19:01: Romazicon) glycopyrrol No Route: IV, Memoria ate (ANES) 3-15 Drug form: l 16:39: INJ, ONCE, Stop date: 05/17/18 11:39:00 CDT neostigmine No Route: IV, Memoria (ANES) 3-15 Drug form: l 16:39: INJ, ONCE, Stop date: 05/17/18 11:39:00 CDT morphine No Route: IV, Mem oria Sulfate 3-15 Drug form: l (ANES) 16:39: INJ, ONCE, Marcia Stop date: 05/17/18 11:39:00 CDT ondansetron No Route: IV, Memoria (ANES) 3-15 Drug form: l 16:39: INJ, ONCE, Stop date: 05/17/18 11:39:00 CDT cefepime No Route: IV, Mem oria (ANES) 1000 3-15 Drug form: l mg 15:59: INJ, Start date: 05/17/18 10:59:00 CDT, Stop date: 05/17/18 11:59:00 CDT fentaNYL 2019-0 No Route: IV, Mem oria (ANES) 3-15 Drug form: l 15:53: INJ, ONCE, Stop date: 05/17/18 10:53:00 CDT phenylephri 2019-0 No Route: IV, Memoria ne (ANES) 3-15 Drug form: l 15:53: INJ, ONCE, Stop date: 05/17/18 10:53:00 CDT lidocaine 2019-0 No Route: IV, Me moria (ANES) 3-15 Drug form: l 15:48: INJ, ONCE, Stop date: 05/17/18 10:48:00 CDT dexamethaso 2019-0 No Route: IV, Memoria ne (ANES) 3-15 Drug form: l 15:48: INJ, ONCE, Stop date: 05/17/18 10:48:00 CDT rocuronium 2019-0 No Route: IV, M emoria (ANES) 3-15 Drug form: l 15:48: INJ, ONCE, Stop date: 05/17/18 10:48:00 CDT propofol 2019-0 No Route: IV, Mem oria (ANES) 3-15 Drug form: l 15:48: INJ, ONCE, Stop date: 05/17/18 10:48:00 CDT succinylcho 2018-0 No Route: IV, Memoria line (ANES) 3-15 Drug form: l 15:43: INJ, ONCE, Stop date: 05/17/18 10:43:00 CDT midazolam 2019-0 No Route: IV, Me moria (ANES) 3-15 Drug form: l 15:43: SOLN, ONCE, Stop date: 05/17/18 10:43:00 CDT Flumazenil 2018-0 No Notes: Memor ia 3-15 (Same as: l 15:35: Romazicon) Morphine 2019-0 No Notes: Memoria 3-15 (Same l 15:35: as:MORPhin e Sulfate) Hydromorpho 2018-0 No Notes: Kuldeep teto ne 3-15 Same as l 15:35: Dilaudid Acetaminoph No Notes: Max Memoria en 3-15 acetaminop l 15:35: hen 4000 [place] 00 mg/day (4 gm/day). (Same as: Tylenol Extra Strength) Promethazin No Notes: Do M emoria e 3-15 not give l 15:35: IV push. (Same as: Phenergan) Ondansetron No Notes: Kuldeep teto 3-15 (Same as: l 15:35: Zofran) MEDICATION WASTE Product Size: 4 mg Product Wasted: ___ mg Meperidine No Notes: Memor ia 3-15 (Same as: l 15:35: Demerol) "Use Precaution in Elderly, Seizure disorders, and Renal impairment " Glycopyrrol No Notes: Kuldeep teto ate 3-15 (Same as: l 15:35: Robinul) Naloxone No Notes: Memoria 3-15 Same as l 15:35: Narcan acetaminoph No Route: IV, Memoria en (ANES) 3-15 Drug form: l 10 mg 15:17: INJ, Start Arsenio n date: 05/17/18 10:17:00 CDT, Stop date: 05/17/18 11:17:00 CDT phenylephri No Route: IV, Memoria ne (ANES) 3-15 Drug form: l 100 14:50: INJ, Start [place] microgram 00 date: 05/17/18 9:50:00 CDT, Stop date: 05/17/18 10:50:00 CDT Lactated No Route: IV, Mem oria Ringers 3-15 Total l Injection 14:30: Volume: Marcia nn IV (ANES) 00 1,000, 1000 mL Start date: 05/17/18 9:30:00 CDT, Stop date: 05/17/18 10:30:00 CDT Lisinopril No Notes: Memor ia 3-15 (Same as: l 14:00: Prinivil, Zestril) Vancomycin No 2001 mg: Me moria 3-15 infuse l 06:00: over 2.5 [place] 00 hours For adult patients only: Round to nearest 250 mg per Medical Staff approval MEDICATION WASTE Product Size: 1000 mg Product Wasted: ___ mg alteplase 2 No Notes: Kuldeep teto mg 3-14 "Syringe l injection 22:49: for [place] 00 catheter clearance or interventi onal radiology use. Reconstitu te each vial of Cathflo Activase with 2.2 ml Sterile Water resulting in a 1 mg/ml solution. (Same as: Activase) MEDICATION WASTE Product Size: 2 mg Product Wasted: ___ mg alteplase 2 No Notes: Kuldeep teto mg 3-14 "Syringe l injection 22:48: for [place] 00 catheter clearance or interventi onal radiology use. Reconstitu te each vial of Cathflo Activase with 2.2 ml Sterile Water resulting in a 1 mg/ml solution. (Same as: Activase) MEDICATION WASTE Product Size: 2 mg Product Wasted: ___ mg Chlorpromaz No Notes: Kuldeep teto ine 3-14 (Same As: l 03:48: Thorazine) Metoclopram No 10 mg, Kuldeep teto thor 3-13 Route: l 17:13: IVP, ONCE, Dosing Weight 80.909, kg, Start date: 05/15/18 12:13:00 CDT, Stop date: 05/15/18 12:13:00 CDT Docusate No Notes: Memoria Sodium 100 3-13 (Same as: l MG Oral 15:11: Colace) (Do Not [Colace] Crush) Chlorpromaz No Notes: Kuldeep teto ine 3-12 (Same As: l 23:30: Thorazine) Reglan No Notes: Memoria 3-12 (Same as: l 21:45: Reglan) cefepime Yes Notes: Memoria 3-12 (Same As: l 20:00: Maxipime) MEDICATION WASTE Product Size: 1000 mg Product Wasted: _0__ mg Fentanyl No Notes: Memoria 3-12 (Same as: l 16:56: Sublimaze) [place] 00 Preservat bryan free. lidocaine No Notes: Memori a 3-12 Preservati l 05:00: ve free. [place] 00 (Same as: Xylocaine MPF) Sodium No 250 mL, Memoria Chloride 3-12 Rate: To l 0.9% 02:42: prime line [place] (titrate) 00 and flush 250 mL remaining blood products., Dosing Weight 80.909, kg, Route: IV, Total Volume: 250, Priority: Routine, Start Date: 05/13/18 21:42:00 CDT, 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, Stop date: 06/12/18 21:41:00 CDT, Replace Every: 24 hr normal No 1,000 mL, Memori a saline 0.9% 05-14 Rate: 75 l IV 1,000 mL 01:21: ml/hr, Herm ladi Infuse over: 13.3 hr, Route: IV, Dosing Weight 80.909 kg, Total Volume: 1,000, Start date: 05/13/18 20:21:00 CDT, 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, Stop date: 06/12/18 20:20:00 CDT, 2.05, m2 Morphine No Notes: Memoria 3-11 (Same l 22:48: as:MORPhin [place] 00 e Sulfate) albumin No 250 mL, Memoria human 5% 3-11 Route: IV, l intravenous 17:52: Dosing Herm ladi solution Weight 80.909, kg, ONCE, NOW, Start date: 05/13/18 12:52:00 CDT, Stop date: 05/13/18 12:52:00 CDT, Indication : Other see comments morphine No Route: IV, Mem oria Sulfate 3-11 Drug form: l (ANES) 15:36: INJ, ONCE, Marcia nn 00 Stop date: 05/13/18 10:36:00 CDT sugammadex No Route: IV, M emoria (ANES) 3-11 Drug form: l 14:05: SOLN, [place] 00 ONCE, Stop date: 05/13/18 9:05:00 CDT acetaminoph 2018- No Route: IV, Memoria en (ANES) 3-11 Drug form: l 14:05: INJ, ONCE, Stop date: 05/13/18 9:05:00 CDT Albuterol No Notes: SEE Me moria 0.83 MG/ML 3-11 RT l Inhalant 13:39: DOCUMENTAT Her fernandes Solution 00 ION (Same as: Proventil) Hydralazine No Notes: Kuldeep teto 3-11 (Same as: l 13:39: Apresoline ) Push over 5 minutes Hydromorpho No Notes: Kuldeep teto ne 3-11 Same as l 13:39: Dilaudid Morphine No Notes: Memoria 3-11 (Same l 13:39: as:MORPhin e Sulfate) Naloxone No Notes: Memoria 3-11 Same as l 13:39: Narcan Flumazenil No Notes: Memor ia 3-11 (Same as: l 13:39: Romazicon) Dexamethaso No Notes: Kuldeep teto ne 3-11 Concentrat l 13:39: ion: 4mg/ml Ondansetron No Notes: Kuldeep teto 3-11 (Same as: l 13:39: Zofran) MEDICATION WASTE Product Size: 4 mg Product Wasted: ___ mg esmolol No Route: IV, Kuldeep teto (ANES) 3-11 Drug form: l 13:38: INJ, ONCE, Stop date: 05/13/18 8:38:00 CDT fentaNYL No Route: IV, Mem oria (ANES) 3-11 Drug form: l 13:28: INJ, ONCE, Stop date: 05/13/18 8:28:00 CDT midazolam No Route: IV, Me moria (ANES) 3-11 Drug form: l 13:23: SOLN, ONCE, Stop date: 05/13/18 8:23:00 CDT rocuronium No Route: IV, M emoria (ANES) 05-13 Drug form: l 13:23: INJ, ONCE, Stop date: 05/13/18 8:23:00 CDT lidocaine No Route: IV, moria (ANES) 05-13 Drug form: l 13:23: INJ, ONCE, Stop date: 05/13/18 8:23:00 CDT propofol No Route: IV, Mem oria (ANES) 05-13 Drug form: l 13:23: INJ, ONCE, Stop date: 05/13/18 8:23:00 CDT phenylephri No Route: IV, Memoria ne (ANES) 05-13 Drug form: l 13:18: INJ, ONCE, Stop date: 05/13/18 8:18:00 CDT ePHEDrine No Route: IV, moria (ANES) 05-13 Drug form: l 13:08: INJ, ONCE, Stop date: 05/13/18 8:08:00 CDT Lactated No Route: IV, Mem oria Ringers 05-13 Total l Injection 12:09: Volume: Marcia nn IV (ANES) 00 1,000, 1000 mL Start date: 05/13/18 7:09:00 CDT, Stop date: 05/13/18 8:09:00 CDT Vancomycin No 2001 mg: moria 3- infuse l 20:00: over 2.5 00 hours heparin No Notes: Memoria - porcine l 15:00: heparin Acetaminoph No Notes: Kuldeep teto en 325 MG / 05-11 (Same as: l Hydrocodone 01:40: [place] Marcia nn Bitartrate 00 325/5) Do 5 MG Oral not exceed Tablet 4gm/day of [[place] acetaminop 5/325] hen. 24 HR No 25 mg, 1 Memoria Metoprolol 3-08 tab, l Tartrate 25 15:00: Route: PO, [place] MG Extended 00 Drug form: Release ERTAB, Tablet Daily, [Toprol] Start date: 05/10/18 9:00:00 HOT BOX CHECKER, 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, Stop date: 06/08/18 9:00:00 CDT ferrous No Notes: Memoria sulfate 3-08 Dose=___mg l 15:00: elemental iron duloxetine No 30 mg, 1 Mem oria 3-08 cap, l 15:00: Route: PO, Drug form: DRC, Daily, Dosing Weight 80.909, kg, Start date: 05/10/18 9:00:00 HOT BOX CHECKER, 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, Stop date: 06/08/18 9:00:00 CDT clopidogrel No Notes: Kuldeep teto 3-08 (Same As: l 15:00: Plavix) Lisinopril No Notes: Memor ia 3-08 (Same as: l 15:00: Prinivil, Zestril) Saline No 10 mL, Memoria Flush 0.9% 308 Route: l 06:00: IVP, Drug Form: INJ, Dosing Weight 80.909, kg, Q8H, Start date: 05/10/18 0:00:00 HOT BOX CHECKER, 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, Stop date: 06/08/18 16:00:00 CDT Mirtazapine No Notes: Kuldeep teto 3-08 (Same l 03:00: as:Remeron ) Trazodone No Notes: Memori a Hydrochlori 3-08 (Same As: l de 50 MG 03:00: Desyrel) Marcia nn Oral Tablet atorvastati No Notes: Kuldeep teto n 3-08 (Same as: l 03:00: Lipitor) Saline No 10 mL, Memoria Flush 0.9% 307 Route: l 23:54: IVP, Drug Form: INJ, Dosing Weight 80.909, kg, PRN, PRN Line Flush, Start date: 05/09/18 17:54:00 HOT BOX CHECKER, 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, Stop date: 06/08/18 18:53:00 CDT cefepime No Notes: Memoria 3-07 (Same As: l 23:00: Maxipime) MEDICATION WASTE Product Size: 1000 mg Product Wasted: ___ mg Buspirone No Notes: Memori a 3-07 (Same As: l 23:00: BuSpar) [place] Alprazolam No Notes: Memor ia 0.25 MG 05-09 With food l Oral Tablet 22:24: or milk Her fernandes [Xanax] 00 (Same as: Xanax) BD Normal No Notes: Memori a Saline - (Same as: l Flush 22:00: BD [place] 00 Posiflush) Vancomycin No Notes: For M emoria - adult l 22:00: patients [place] only: Round to nearest 250 mg per Medical Staff approval MEDICATION WASTE Product Size: 1000 mg Product Wasted: ___ mg Sodium No 25 mL, Memoria Chloride 05-09 Route: IV, l 0.9% IV 19:59: Start [place] date: 05/09/18 13:59:00 HOT BOX CHECKER, 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, Stop date: 06/08/18 14:58:00 CDT, PRN Line Flush BD Normal No Notes: Memori a Saline -07 (Same as: l Flush 19:59: BD Posiflush) BD Normal No Notes: Memori a Saline -07 (Same as: l Flush 19:58: BD [place] 00 Posiflush) tramadol Yes 100 mg = 2 Mem oria hydrochlori -07 tab, PO, l de 50 MG 19:54: Bedtime, 0 Her fernandes Oral Tablet 00 Refill(s) Cathflo No 1 mg, 1 Memoria Activase 2 3-07 mL, Route: l mg 19:28: INJ, Drug [place] injection form: SOLN, ONCE, Dosing Weight 80.909, kg, Start date: 05/09/18 13:28:00 HOT BOX CHECKER, Stop date: 05/09/18 13:28:00 HOT BOX CHECKER, [place] CVAD < 7 American alteplase 2 No 1 mg, 1 Mem oria mg 3-07 mL, Route: l injection 19:28: INJ, Drug Her fernandes form: SOLN, ONCE, Dosing Weight 80.909, kg, Start date: 05/09/18 13:28:00 HOT BOX CHECKER, Stop date: 05/09/18 13:28:00 HOT BOX CHECKER, [place] CVAD < 7 American Morphine No Notes: Memoria 3 (Same l 19:09: as:MORPhin [place] 00 e Sulfate) Acetaminoph No Notes: Do M emoria en 05-09 not exceed l 19:09: 4 gm/day. [place] (Same as: Tylenol) Ondansetron No Notes: Kuldeep teto 05-09 (Same as: l 19:09: Zofran [place] 00 ODT) Glucagon No 1 mg, Memoria 05-09 Route: IM, l 19:09: Drug form: [place] PDR/INJ, PRN, Dosing Weight 80.909, kg, PRN Blood Glucose Results, Start date: 05/09/18 13:09:00 HOT BOX CHECKER, 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, Stop date: 06/08/18 14:08:00 CDT Dextrose No 12.5 gm, Memor ia 50% Syringe 05-09 25 mL, l 19:09: Route: [place] 00 IVP, Drug Form: INJ, Dosing Weight 80.909, kg, PRN, PRN Blood Glucose Results, Start date: 05/09/18 13:09:00 HOT BOX CHECKER, 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, Stop date: 06/08/18 14:08:00 CDT Lasix 2017-03 No Notes: Memoria 2 (Same as: l 15:00: Lasix) [place] 00 May cause GI upset. Give with food or milk. Potassium 2017-03 No Notes: Memori a Chloride 2- (Same as: l 18:32: K-Dur 20) [place] 00 "Do Not Crush" Give with food and full glass of water For patients unable to swallow tablet, dissolve in one half glass of water. Allow about 2 minutes for the tablets to disintegra te. Stir before giving to prepare slurry and administer . Please exclude Patient s with feeding tube less than 14 American (Dobhoff, J-tube etc) and pediatric and patients. Rocephin 1 2017-03 No 2 gm, IV, Me moria g injection 05-02 Q24H, X 14 l 18:26: day, # 14 00 ea, 0 Refill(s), other Furosemide 2017-03 No 20 mg = 1 Me moria 20 MG Oral 2-28 tab, PO, l Tablet 18:26: Daily, # [place] 00 30 tab, 0 Refill(s), Pharmacy: [facility] [id number] Potassium 2017-03 No Notes: Memori a Chloride - (Same as: l 16:19: K-Dur 20) [place] 00 "Do Not Crush" Give with food and full glass of water For patients unable to swallow tablet, dissolve in one half glass of water. Allow about 2 minutes for the tablets to disintegra te. Stir before giving to prepare slurry and administer . Please exclude Patient s with feeding tube less than 14 American (Dobhoff, J-tube etc) and pediatric and patients. multivitami 2017-03 No Notes: Kuldeep teto n with 05-02 (Same l minerals 15:00: as:Thera-M Her fernandes 00 , Theragran- M) WASTE: F/P - Black; E - Municipal Trash Bin Give with food. atorvastati 2017-03 No Notes: Kuldeep teto n - (Same as: l 03:00: Lipitor) [place] Trazodone 2017-03 No Notes: Memori a Hydrochlori - (Same As: l de 50 MG 03:00: Desyrel) Marcia nn Oral Tablet 00 Mirtazapine 2017-03 No Notes: Kuldeep teto 2-28 (Same l 03:00: as:Remeron ) Beneprotein 2017-03 No Notes: Kuldeep teto 7 gm pkt - (Same as: l 22:30: Beneprotei [place] 00 n) Ceftriaxone 2017-03 No Notes: Kuldeep teto 2-27 (Same As: l 19:00: Rocephin). Use with 100 mL NS and infuse over 30 min MEDICATION WASTE Product Size: 2000 mg Product Wasted: ___ mg ferrous 2017-03 No Notes: Memoria sulfate - Give with l 15:24: food. iron elemental [id number] as ferrous sulfate Dose=___mg elemental iron duloxetine 2017-03 No Notes: Memor ia 2-27 (Same as: l 15:24: Cymbalta) [place] 00 (Do Not Crush) clopidogrel 2017-03 No Notes: Kuldeep teto 2-27 (Same As: l 15:24: Plavix) Buspirone 2017-03 No Notes: Memori a 2-27 (Same As: l 15:24: BuSpar) Vancomycin 2017-03 No 2001 mg: Me moria 2-27 infuse l 15:24: over 2.5 [place] 00 hours metoprolol 2017-03 No Notes: Memor ia extended 2-27 (Same as: l release 15:24: Toprol XL) Do Not Crush Lisinopril 2017-03 No Notes: Memor ia 2-27 (Same as: l 15:24: Prinivil, [place] 00 Zestril) Enoxaparin 2017-03 No Notes: Memor ia 2-27 (Same as: l 15:00: Lovenox) Saline 2017-03 No Notes: Memoria Flush 0.9% 2-27 (Same as: l 15:00: BD Posiflush) Furosemide 2017-03 No Notes: Memor ia 2-27 (Same as: l 15:00: Lasix) MEDICATION WASTE Product Size: 40 mg Product Wasted: ___ mg Dexamethaso 2017-03 No Notes: Kuldeep teto ne 2-27 Concentrat l 09:59: ion: [place] 00 4mg/ml Benadryl 2017-03 No Notes: Memoria 2-27 (Same as: l 08:25: Benadryl) Saline 2017-03 No Notes: Memoria Flush 0.9% 2-27 (Same as: l 08:24: BD Posiflush) Benadryl 2017-03 No Notes: Memoria 2-27 (Same as: l 06:45: Benadryl) Dexamethaso 2017-03 No 12 mg, 3 Me moria ne 2-27 mL, Route: l 06:45: IVP, Drug form: INJ, ONCE, Dosing Weight 83.182, kg, Priority: STAT, Start date: 02/28/18 0:45:00 HOT BOX CHECKER, 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/28/18 0:45:00 HOT BOX CHECKER tramadol 2017-03 No 50 mg = 1 Kuldeep teto hydrochlori 2-20 tab, PO, l de 50 MG 18:02: Q8H, PRN Marcia nn Oral Tablet 00 Pain, X 3 day, # 7 tab, 0 Refill(s) vancomycin 2017-03 No 1.25 gm = Me moria 1.25 g/250 2-20 250 mL, l mL-NaCl 17:58: IVPB, [place] 0.9% 00 Q12H, 0 intravenous Refill(s) solution Mirtazapine 2017-03 No 15 mg = 1 M emoria 15 MG Oral 2-20 tab, PO, l Tablet 17:58: Bedtime, 0 Marcia nn 00 Refill(s) lisinopril 2017-03 No 5 mg = 1 Mem oria 5 mg oral 2-20 tab, PO, l tablet 17:58: Daily, 0 [place] 00 Refill(s) ferrous 2017-03 No 325 mg = 1 Kuldeep teto sulfate 325 2-20 tab, PO, l MG Oral 17:58: Daily, 0 Arsenio n Tablet 00 Refill(s) Vancomycin 2017-03 No 2001 mg: Me moria 2-20 infuse l 03:00: over 2.5 [place] 00 hours [place] Enema 2017-03 No 12 years, Memoria 2-19 Pediatric l 17:47: Dosing [place] Lisinopril 2017-03 No Notes: Memor ia 2-19 (Same as: l 15:18: Prinivil, [place] Zestril) Sodium 2017-03 No 25 mL, Memoria Chloride 2-18 Route: IV, l 0.9% IV 14:04: Start [place] date: 02/19/18 8:04:00 HOT BOX CHECKER, 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, Stop date: 03/21/18 8:03:00 HOT BOX CHECKER, PRN Line Flush BD Normal 2017-03 No Notes: Memori a Saline 2-18 (Same as: l Flush 14:04: BD [place] Posiflush) Zinc 2017-03 No Notes: Memoria Sulfate 2-17 (Zinc l 19:30: sulfate [place] capsule) - 220 mg Zinc sulfate = 50 mg elemental zinc Same as Zinc Sulfate Beneprotein 2018-1 No Notes: Kuldeep teto 7 gm pkt 2-17 (Same as: l 18:38: Beneprotei [place] 00 n) ferrous 2017-03 No Notes: Memoria sulfate 2-17 Give with l 16:37: food. iron elemental [id number] as ferrous sulfate Dose=___mg elemental iron Docusate 2017-03 No Notes: Memoria Sodium 100 2-17 (Same as: l MG Oral 03:00: Colace) [place] Capsule 00 (Do Not Crush) Miralax 2017-03 No Notes: Memoria 2-16 Dissolve l 15:49: in 8 oz of [place] 00 water or juice. (Same as: Miralax) Vancomycin 2017-03 No 2001 mg: Me moria 2-15 infuse l 21:00: over 2.5 [place] 00 hours Saline 2017-03 No Notes: Memoria Flush 0.9% 2-14 (Same as: l 22:00: BD [place] Posiflush) Saline 2017-03 No Notes: Memoria Flush 0.9% 2-14 (Same as: l 17:44: BD [place] Posiflush) morphine 2017-03 No Notes: Memoria Sulfate 2-14 (Same l 15:35: as:MORPhin [place] 00 e Sulfate) Docusate 2017-03 No Notes: Memoria Sodium 100 2-14 (Same as: l MG Oral 15:00: Colace) [place] Capsule 00 (Do Not Crush) Enoxaparin 2017-03 No Notes: Memor ia 2-14 (Same as: l 15:00: Lovenox) [place] 00 morphine 2017-03 No Notes: Memoria 0.5 mg/mL 2-14 (Same l preservativ 13:38: as:MORPhin [place] e-free 00 e Sulfate) injectable solution Mirtazapine 2017-03 No Notes: Kuldeep teto 2-14 (Same l 03:00: as:Remeron [place] 00 ) Saline 2017-03 No Notes: Memoria Flush 0.9% 2-13 (Same as: l 23:46: BD [place] 00 Posiflush) Sodium 2017-03 No 1,000 mL, Memori a Chloride 2-13 Rate: 100 l 0.45% IV 23:46: ml/hr, [place] 1,000 mL 00 Infuse over: 10 hr, Route: IV, Dosing Weight 85 kg, Total Volume: 1,000, Start date: 02/14/18 17:46:00 HOT BOX CHECKER, 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, Stop date: 03/16/18 17:45:00 HOT BOX CHECKER, 2.1, m2 Dulcolax 2017-03 No Notes: Memoria Laxative 2-13 (Same As: l 23:46: Dulcolax, [place] 00 Correctol) (Do Not Crush) "Do Not Crush" Ondansetron 2017-03 No Notes: Kuldeep teto 2-13 (Same as: l 23:46: Zofran [place] 00 ODT) Diphenhydra 2017-03 No Notes: Kuldeep teto mine 2-13 (Same as: l 23:46: Benadryl) [place] 00 Acetaminoph 2017-03 No Notes: Max Memoria en 2-13 acetaminop l 23:46: hen = 4000 [place] 00 mg/day (4 gm/day). (Same as: Tylenol) Acetaminoph 2017-03 No Notes: Kuldeep teto en 325 MG / 2-13 (Same as: l Hydrocodone 23:46: [place] Marcia nn Bitartrate 00 325/5) Do 5 MG Oral not exceed Tablet 4gm/day of acetaminop hen. sugammadex 2017-03 No Route: IV, M emoria (ANES) 2-13 Drug form: l 22:11: SOLN, ONCE, 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/14/18 16:11:00 HOT BOX CHECKER ePHEDrine 2017-03 No Route: IV, Me moria (ANES) 2-13 Drug form: l 22:07: INJ, ONCE, 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/14/18 16:07:00 HOT BOX CHECKER succinylcho 2017-03 No Route: IV, Memoria line (ANES) 2-13 Drug form: l 22:02: INJ, ONCE, 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/14/18 16:02:00 HOT BOX CHECKER phenylephri 2017-03 No Route: IV, Memoria ne (ANES) 2-13 Drug form: l 22:02: INJ, ONCE, 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/14/18 16:02:00 HOT BOX CHECKER dexamethaso 2017-03 No Route: IV, Memoria ne (ANES) 2-13 Drug form: l 22:02: INJ, ONCE, 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/14/18 16:02:00 HOT BOX CHECKER ondansetron 2017-03 No Route: IV, Memoria (ANES) 2-13 Drug form: l 22:02: INJ, ONCE, 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/14/18 16:02:00 HOT BOX CHECKER fentaNYL 2017-03 No Route: IV, Mem oria (ANES) 2-13 Drug form: l 21:57: INJ, ONCE, 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/14/18 15:57:00 HOT BOX CHECKER lidocaine 2017-03 No Route: IV, Me moria (ANES) 2-13 Drug form: l 21:57: INJ, ONCE, 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/14/18 15:57:00 HOT BOX CHECKER propofol 2017-03 No Route: IV, Mem oria (ANES) 2-13 Drug form: l 21:57: INJ, ONCE, 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/14/18 15:57:00 HOT BOX CHECKER rocuronium 2017-03 No Route: IV, M emoria (ANES) 2-13 Drug form: l 21:57: INJ, ONCE, 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/14/18 15:57:00 HOT BOX CHECKER midazolam 2017-03 No Route: IV, Me moria (ANES) 2-13 Drug form: l 21:57: SOLN, ONCE, 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/14/18 15:57:00 HOT BOX CHECKER Promethazin 2017-03 No Notes: Do M emoria e 2-13 not give l 21:47: IV push. (Same as: Phenergan) Ondansetron 2017-03 No Notes: Kuldeep teto 2-13 (Same as: l 21:47: Zofran) MEDICATION WASTE Product Size: 4 mg Product Wasted: ___ mg Metoprolol 2017-03 No Notes: Memor ia 2-13 (Same as: l 21:47: Lopressor) Push over 2 minutes Ketorolac 2017-03 No 4 days Memor ia 2-13 l 21:47: MEDICATION WASTE Product Size: 30 mg Product Wasted: ___ mg Labetalol 2017-03 No Notes: Memori a 2-13 (Same as: l 21:47: Normodyne, [place] 00 Trandate) Push over 2 minutes Give bolus over 2-3 minutes. Sodium 2017-03 No 500 mL, Memoria Chloride 2-13 1500 l 0.9% 21:47: ml/hr, [place] (Bolus) IV 00 Infuse Over: 20 minutes, Route: IV, 500, Drug form: INJ, ONCE, Dosing Weight 85 kg, Start date: 02/14/18 15:47:00 HOT BOX CHECKER, 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/14/18 15:47:00 HOT BOX CHECKER Naloxone 2017-03 No Notes: Memoria 2-13 Same as l 21:47: Narcan [place] 00 Flumazenil 2017-03 No Notes: Memor ia 2-13 (Same as: l 21:47: Romazicon) Morphine 2017-03 No Notes: Memoria 2-13 (Same l 21:47: as:MORPhin [place] 00 e Sulfate) Hydromorpho 2017-03 No Notes: Kuldeep teto ne 2-13 Same as l 21:47: Dilaudid vancomycin 2017-03 No Route: IV, M emoria (ANES) 1000 2-13 Drug form: l mg 21:45: INJ, Start [place] 00 date: 02/14/18 15:45:00 HOT BOX CHECKER, 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/14/18 16:45:00 HOT BOX CHECKER Sodium 2017-03 No Route: IV, Memor ia Chloride 2-13 Total l 0.9% IV 21:08: Volume: [place] (ANES) 1000 00 1,000, mL Start date: 02/14/18 15:08:00 HOT BOX CHECKER, 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/14/18 16:08:00 HOT BOX CHECKER Ativan 2017-03 No Notes: Memoria 2-13 (Same as: l 18:24: Ativan) [place] Thiamine 2017-03 No Notes: Memoria 2-13 (Same As: l 16:00: Vitamin [place] B1) multivitami 2017-03 No Notes: Kuldeep teto n with 2-13 (Same l minerals 16:00: as:Thera-M Her fernandes 00 , Theragran- M) WASTE: F/P - Black; E - Municipal Trash Bin Give with food. 24 HR 2017-03 No Notes: Memoria Metoprolol 2-13 (Same as: l Tartrate 25 15:00: Toprol XL) [place] MG Extended 00 Do Not Release Crush Tablet [Toprol] duloxetine 2017-03 No Notes: Memor ia 2-13 (Same as: l 15:00: Cymbalta) [place] 00 (Do Not Crush) Plavix 2017-03 No Notes: Memoria 2-13 (Same As: l 15:00: Plavix) [place] 00 atorvastati 2017-03 No Notes: Kuldeep teto n 2-13 (Same as: l 03:00: Lipitor) [place] 00 Trazodone 2017-03 No Notes: Memori a Hydrochlori 2-13 (Same As: l de 50 MG 03:00: Desyrel) Marcia nn Oral Tablet 00 Sodium 2017-03 No 250 mL, Memoria Chloride 2-13 Rate: To l 0.9% 01:24: prime line [place] (titrate) 00 and flush 250 mL remaining blood products., Dosing Weight 85, kg, Route: IV, Total Volume: 250, Priority: Routine, Start Date: 02/13/18 19:24:00 HOT BOX CHECKER, 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, Stop date: 03/15/18 19:23:00 HOT BOX CHECKER, Replace Every: 24 hr Vancomycin 2017-03 No 2000 mg: Me moria 2-13 infuse l 00:00: over 2.5 [place] 00 hours For adult patients only: Round to nearest 250 mg per Medical Staff approval MEDICATION WASTE Product Size: 1000 mg Product Wasted: ___ mg potassium 2017-03 No Notes: Memori a chloride 20 2-12 (Same as: l mEq oral 23:28: K-Dur 20) Herm ladi tablet, 00 "Do Not extended Crush" release Give with food and full glass of water For patients unable to swallow tablet, dissolve in one half glass of water. Allow about 2 minutes for the tablets to disintegra te. Stir before giving to prepare slurry and administer . Please exclude Patient s with feeding tube less than 14 American (Dobhoff, J-tube etc) and pediatric and patients. Buspirone 2017-03 No Notes: Memori a 2-12 (Same As: l 23:00: BuSpar) [place] 00 NS 1,000 mL 2017-03 No 1,000 mL, M emoria 12 Rate: 75 l 22:01: ml/hr, [place] 00 Infuse over: 13.3 hr, Route: IV, Dosing Weight 85 kg, Total Volume: 1,000, Start date: 02/13/18 16:01:00 HOT BOX CHECKER, 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, Stop date: 03/15/18 16:00:00 HOT BOX CHECKER, 2.1, m2 Rocephin + 2017-03 No Notes: Memor ia Sodium 04-16 (Same As: l Chloride 22:00: Rocephin). Her fernandes 0.9% IV 100 00 Use with mL 100 mL NS and infuse over 30 min MEDICATION WASTE Product Size: 1000 mg Product Wasted: ___ mg clopidogrel 2017-03 No 75 mg = 1 M emoria 75 MG Oral 2-12 tab, PO, l Tablet 21:11: Daily, # [place] [Plavix] 00 90 tab, 1 Refill(s) duloxetine 2017-03 No 30 mg, PO, M emoria 2-12 Daily, 0 l 21:11: Refill(s) [place] 00 metoprolol 2017-03 No 25 mg = 1 Me moria succinate 2-12 cap, PO, l 25 mg oral 21:11: Daily, 0 Her fernandes capsule, 00 Refill(s) extended release Trazodone 2017-03 No 100 mg = 2 Me moria Hydrochlori 2-12 tab, PO, l de 50 MG 21:11: Bedtime, 0 Her fernandes Oral Tablet 00 Refill(s) atorvastati 2017-03 No 80 mg = 1 M emoria n 80 mg 2-12 tab, PO, l oral tablet 21:11: Bedtime, # [place] 00 30 tab, 0 Refill(s) busPIRone 2017-03 No 10 mg = 1 Mem oria 10 mg oral 2-12 tab, PO, l tablet 21:11: BID, 0 [place] 00 Refill(s) Sulfamethox 2017-03 No 1 tab, PO, Memoria azole 800 2-12 BID, # 14 l MG / 21:11: tab, 0 [place] Trimethopri 00 Refill(s) m 160 MG Oral Tablet Tramadol 2017-03 No 50 mg, PO, Mem oria 2-12 Q4-6H, PRN l 21:11: Pain, # 20 [place] 00 tab, 0 Refill(s) midodrine 2017-03 No 2.5 mg = 1 Me moria 2.5 mg oral 2-12 tab, PO, l tablet 21:11: BID, 0 [place] 00 Refill(s) Acetaminoph 2017-03 No Notes: Do M emoria en 12 not exceed l 20:53: 4 gm/day. [place] 00 (Same as: Tylenol) Ondansetron 2017-03 No Notes: Kuldeep teto 2-12 (Same as: l 20:53: Zofran) MEDICATION WASTE Product Size: 4 mg Product Wasted: ___ mg Glucagon 2017-03 No 1 mg, Memoria 12 Route: IM, l 20:53: Drug form: [place] 00 PDR/INJ, PRN, kg, PRN Blood Glucose Results, Start date: 02/13/18 14:53:00 HOT BOX CHECKER, 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, Stop date: 03/15/18 14:52:00 HOT BOX CHECKER Dextrose 2017-03 No 25 gm, 50 Kuldeep teto 50% Syringe 2-12 mL, Route: l 20:53: IVP, Drug Form: INJ, kg, PRN, PRN Blood Glucose Results, Start date: 02/13/18 14:53:00 HOT BOX CHECKER, 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, Stop date: 03/15/18 14:52:00 HOT BOX CHECKER DULoxetine 2017-03 No 30 mg = 1 Me moria 30 mg oral 2-12 cap, PO, l delayed 18:48: Daily, # Arsenio n release 00 30 cap, 0 capsule Refill(s) tramadol 2017-03 No 50 mg = 1 Kuldeep teto hydrochlori 2-12 tab, PO, l de 50 MG 18:48: Q4H, PRN Marcia nn Oral Tablet 00 Pain, # 60 tab, 0 Refill(s) pantoprazol 2017-03 No 40 mg = 1 M emoria e 40 mg 2-12 tab, PO, l oral 18:48: Daily, Dana Ahuja enteric 00 30 tab, 0 coated Refill(s) tablet clopidogrel 2017-03 Yes 75 mg = 1 M emoria 75 mg oral 2-12 tab, PO, l tablet 18:48: Daily, 0 [place] 00 Refill(s) Aspirin 81 2017-03 No 162 mg = 2 M emoria MG Enteric 2-12 tab, PO, l Coated 18:48: Daily, # [place] Tablet 00 90 tab, 3 Refill(s) metoprolol 2017-03 No 25 mg = 1 Me moria succinate 2-12 cap, PO, l 25 mg oral 18:48: Daily, 0 Her fernandes capsule, 00 Refill(s) extended release Sennosides 2017-03 No Sennosides M emoria 2-12 , 8.6 mg l 18:48: =, PO, [place] 00 Daily, Refill(s) 0 atorvastati 2017-03 Yes 80 mg = 1 M emoria n 80 mg 2-12 tab, PO, l oral tablet 18:48: Bedtime, 0 [place] 00 Refill(s) midodrine 2017-03 No 5 mg = 2 Kuldeep teto 2.5 mg oral 2-12 tab, PO, l tablet 18:48: Daily, # [place] 00 180 tab, 0 Refill(s) busPIRone 2017-03 Yes 10 mg = 1 [facility] 10 mg oral 2-12 tab, PO, l tablet 18:48: BID, 0 [place] 00 Refill(s) Trazodone 2017-03 No 50 mg = 1 [facility] Hydrochlori 2-12 tab, PO, l de 50 MG 18:48: TID, # 90 [facility] ladi Oral Tablet 00 tab, 0 Refill(s) Vital Signs Vital Name Observation Time Observation Value Comments Source Respitory Rate 2018-08-16 16:55:00 [facility] [place] Systolic (mm Hg) 2018-08-16 16:55:00 Kuldeep rial [place] Diastolic (mm Hg) 2018-08-16 16:55:00 [facility] [place] Heart Rate 2018-08-16 16:55:00 [facility] [place] Temperature Oral (F) 2018-08-16 13:25:[address] [facility] Respitory Rate 2018-08-16 13:25:00 [facility] [place] Systolic (mm Hg) 2018-08-16 13:25:00 Kuldeep rial [place] Diastolic (mm Hg) 2018-08-16 13:25:00 [facility] [place] Heart Rate 2018-08-16 13:25:00 [facility] [place] BMI Calculated 2018-08-16 07:46:00 [facility] [place] Height 2018-08-16 07:46:00 185.42 cm [facility] [place] Weight 2018-08-16 07:46:00 [facility] [place] Systolic (mm Hg) 2018-08-16 07:44:00 Kuldeep rial [place] Diastolic (mm Hg) 2018-08-16 07:44:00 [facility] [place] Heart Rate 2018-08-16 07:44:00 [facility] [place] Respitory Rate 2018-08-16 07:44:00 [facility] [place] Temperature Oral (F) 2018-08-16 07:44:00 98.2 F [facility] [place] Temperature Oral (F) 2018-08-16 06:58:00 98.3 F [facility] [place] Weight 2018-08-16 01:17:00 [facility] [place] Height 2018-08-16 01:17:00 185.42 cm [facility] [place] BMI Calculated 2018-08-16 01:17:00 [facility] [place] Height 2018-06-19 10:53:00 185.42 cm [facility] [place] BMI Calculated 2018-06-19 10:53:00 [facility] [place] Weight 2018-06-19 10:53:00 [facility] [place] Temperature Oral (F) 2018-06-03 20:45:00 98.2 F [facility] [place] Systolic (mm Hg) 2018-06-03 20:45:00 Kuldeep rial [place] Diastolic (mm Hg) 2018-06-03 20:45:00 [facility] [place] Respitory Rate 2018-06-03 20:45:00 [facility] [place] Heart Rate 2018-06-03 20:45:00 [facility] [place] Systolic (mm Hg) 2018-06-03 19:45:00 Kuldeep rial [place] Diastolic (mm Hg) 2018-06-03 19:45:00 [facility] [place] Respitory Rate 2018-06-03 19:45:00 [facility] [place] Heart Rate 2018-06-03 19:45:00 [facility] [place] Diastolic (mm Hg) 2018-06-03 19:15:00 [facility] [place] Respitory Rate 2018-06-03 19:15:00 [facility] [place] Heart Rate 2018-06-03 19:15:00 [facility] [facility] Systolic (mm Hg) 2018-06-03 19:15:00 Kuldeep [facility] Temperature Oral (F) 2018-06-03 18:45:00 97.8 F [facility] BMI Calculated 2018-06-03 14:00:00 [facility] Weight 2018-06-03 14:00:00 [facility] Height 2018-06-03 14:00:00 185.4 cm [facility] Temperature Oral (F) 2018-06-03 12:15:00 98.1 F [facility] BMI Calculated 2018-06-02 23:24:00 [facility] Weight 2018-06-02 23:24:00 [facility] Height 2018-06-02 23:24:00 185.42 cm [facility] Weight 2018-06-02 20:36:00 [facility] Respitory Rate 2018-05-21 12:44:00 [facility] Systolic (mm Hg) 2018-05-21 12:44:00 Kuldeep rial [facility] Diastolic (mm Hg) 2018-05-21 12:44:00 [facility] Temperature Oral (F) 2018-05-21 12:44:00 98.3 F [facility] Heart Rate 2018-05-21 12:44:00 [facility] Systolic (mm Hg) 2018-05-21 09:00:00 Kuldeep rial [facility] Diastolic (mm Hg) 2018-05-21 09:00:00 [facility] Heart Rate 2018-05-21 09:00:00 [facility] Respitory Rate 2018-05-21 09:00:00 [facility] Temperature Oral (F) 2018-05-21 09:00:00 97.8 F [facility] Systolic (mm Hg) 2018-05-21 05:00:00 Kuldeep rial [facility] Diastolic (mm Hg) 2018-05-21 05:00:00 [facility] Temperature Oral (F) 2018-05-21 05:00:00 98.0 F [facility] Respitory Rate 2018-05-21 05:00:00 [facility] Heart Rate 2018-05-21 05:00:00 [facility] Weight 2018-05-09 18:49:00 [facility] BMI Calculated 2018-05-09 18:49:00 [facility] Height 2018-05-09 18:49:00 185.42 cm [facility] Systolic (mm Hg) 2018-03-01 19:00:00 Kuldeep [facility] Diastolic (mm Hg) 2018-03-01 19:00:00 [facility] Systolic (mm Hg) 2018-03-01 18:00:00 Kuldeep rial [facility] Diastolic (mm Hg) 2018-03-01 18:00:00 [facility] Temperature Oral (F) 2018-03-01 18:00:00 98.0 F [facility] Systolic (mm Hg) 2018-03-01 17:00:00 Kuldeep [facility] Diastolic (mm Hg) 2018-03-01 17:00:00 [facility] Temperature Oral (F) 2018-03-01 14:00:00 98.1 F [facility] Temperature Oral (F) 2018-03-01 11:42:00 98 F [facility] Respitory Rate 2018-02-28 14:00:00 [facility] Respitory Rate 2018-02-28 13:00:00 [facility] Respitory Rate 2018-02-28 12:00:00 [facility] BMI Calculated 2018-02-28 10:03:00 [facility] Height 2018-02-28 10:03:00 185.42 cm [facility] Weight 2018-02-28 10:03:00 [facility] Weight 2018-02-28 10:01:00 [facility] BMI Calculated 2018-02-28 10:01:00 [facility] Height 2018-02-28 10:01:00 185.42 cm [facility] Temperature Oral (F) 2018-02-28 08:15:00 98.0 F [facility] Systolic (mm Hg) 2018-02-28 08:15:00 Kuldeep rial [facility] Diastolic (mm Hg) 2018-02-28 08:15:00 [facility] Respitory Rate 2018-02-28 08:15:00 [facility] Systolic (mm Hg) 2018-02-28 07:45:00 Kuldeep rial [facility] Diastolic (mm Hg) 2018-02-28 07:45:00 [facility] Respitory Rate 2018-02-28 07:45:00 [facility] Systolic (mm Hg) 2018-02-28 07:27:00 Kuldeep [facility] Diastolic (mm Hg) 2018-02-28 07:27:00 [facility] Temperature Oral (F) 2018-02-28 07:27:00 98.0 F [facility] Respitory Rate 2018-02-28 07:27:00 [facility] Temperature Oral (F) 2018-02-28 05:30:00 97.9 F [facility] Height 2018-02-28 03:15:00 185.42 cm [facility] Heart Rate 2018-02-28 03:15:00 [facility] BMI Calculated 2018-02-28 03:15:00 [facility] Weight 2018-02-28 03:15:00 [facility] Systolic (mm Hg) 2018-02-21 16:48:00 Kuldeep rial [facility] Diastolic (mm Hg) 2018-02-21 16:48:00 [facility] Temperature Oral (F) 2018-02-21 16:48:00 98.3 F [facility] Respitory Rate 2018-02-21 16:48:00 [facility] Heart Rate 2018-02-21 16:48:00 [facility] Heart Rate 2018-02-21 13:47:00 [facility] Temperature Oral (F) 2018-02-21 13:47:00 97.7 F [facility] Systolic (mm Hg) 2018-02-21 13:47:00 Kuldeep rial [facility] Diastolic (mm Hg) 2018-02-21 13:47:00 [facility] Respitory Rate 2018-02-21 13:47:00 [facility] Temperature Oral (F) 2018-02-21 10:00:00 98.3 F [facility] Systolic (mm Hg) 2018-02-21 10:00:00 Kuldeep rial [facility] Diastolic (mm Hg) 2018-02-21 10:00:00 [facility] Heart Rate 2018-02-21 10:00:00 [facility] Respitory Rate 2018-02-21 10:00:00 [facility] BMI Calculated 2018-02-13 20:53:00 [facility] Height 2018-02-13 20:53:00 185.42 cm [facility] Weight 2018-02-13 20:53:00 [facility] Height 2018-02-13 18:42:00 185.42 cm [facility] Weight 2018-02-13 18:42:00 [facility] BMI Calculated 2018-02-13 18:42:00 Carol al [facility] Systolic (mm Hg) 2018-02-13 18:42:00 Kuldeep christine [facility] Diastolic (mm Hg) 2018-02-13 18:42:00 [facility] Procedures Procedure Date / Time Performed Performing Clinician [facility] e CABG x 4 - Coronary 2017-11-02 05:00:00 [facility] artery bypass grafts x 4 CABG - Coronary artery 2017-11-02 05:00:00 Doc ial [facility] bypass graft Repair of umbilical 2016-03-05 00:00:00 [facility] hernia Encounters Start End Encounter Admission Attending Care Care Encounter Source Date/Time Date/Time Type Type Clinicians Facility Department ID 2018-06-02 Inpatient E [facility] MED [id number] Mem oria 16:35:00 l [facility] Mem[facility] l [facility] 2020-05-11 2020-05-11 Patient [facility] [id number] 00:00:00 00:00:00 Outreach Mahesh SCRUGGS [id number] [facility] [id number] PAVILLION [id number] [facility] 2020-01-19 2020-01-19 Telephone [facility] [id number] 00:00:00 00:00:00 Jd Fierro 350.1.13.10 [place] [id number] Professio [id number] [address] 2020-01-12 2020-01-12 Office [place] [id number] 12:41:56 13:52:29 Visit Jd Fierro 350.1.13.10 Emma 4.2.7.2.686 Professio [id number] [facility] 2018-08-15 2018-08-16 Outpatient ONEIL Land [facility] [id number] 20:10:48 13:24:00 Gladys 03 Shiow-2018-08-16 2018-08-16 Outpatient E [facility] [id number] HH 01:28:00 01:28:00 2018-06-21 2018-06-21 Outpatient Pedro, [facility] [id number] 10:57:00 16:41:00 Pepito Tapia 2018-06-21 2018-06-21 Outpatient [facility] [id number] Memoria 10:57:00 10:57:00 l [facility] Mark[place] l [facility] l 2018-06-02 2018-06-03 Outpatient Eddy, [facility] [id number] 15:34:00 18:50:00 Timothy 2018-05-09 2018-05-21 Outpatient Gabe, [facility] [id number] 12:05:00 12:09:00 Mimi 68 M 2018-05-08 2018-05-08 Outpatient [facility] [id number] 13:30:00 13:30:00 Hector Vanegas 2018-04-29 2018-04-29 Outpatient [facility] [id number] 10:30:00 10:30:00 Hecotr Vanegas 2018-04-05 2018-04-05 Outpatient Nghia Oneal [id number]. [id number] 1. [id number] 16:00:00 23:59:00 M [id number]. [id number] 3.615.30 5.30 2018-02-28 2018-03-01 Outpatient Jamie Rush [facility] [id number] 03:45:00 14:05:00 Dre 63 2018-02-27 2018-02-28 Outpatient [place], [id number] 21:10:00 02:14:00 Brigido Jennings 00 2018-02-13 2018-02-21 Outpatient Venkata [facility] [id number] 14:01:00 14:00:00 Chi Nielsen 2018-02-13 2018-02-13 Outpatient [facility] [id number] 12:30:00 23:59:59 Hector Vanegas 2018-02-11 2018-02-11 Outpatient [facility] [id number] 11:00:00 11:00:00 Hector Gene 00 Results Test Description Test Time Test Comments Results Result Comments Source CHEM PANEL 2018-08-16 <0.1 [facility] 09:13:00 CHEM PANEL 2018-08-16 6.9 [facility] 09:13:00 CHEM PANEL 2018-08-16 3.0 [facility] 09:13:00 CHEM PANEL 2018-08-16 3.9 [facility] 09:13:00 CHEM PANEL 2018-08-16 214 [facility] 09:13:00 CHEM PANEL 2018-08-16 0.3 [facility] 09:13:00 CHEM PANEL 2018-08-16 207 [facility] 09:13:00 CHEM PANEL 2018-08-16 09:13:00 Test Item Value Reference Range Interpretation Comme nts A/G Ratio (test code = A/G Ratio) 0.8 1 0.7-1.6 [facility]CHE[facility] YCVEA1975-38-93 09:13:29002Mwaqtvli HermannELECTROLYTES 2018-08-16 09:13:0011.2[facility] DidffflMTZPVLAQWAEM0978-25-75 09:13:0085[facility] ZpqctaxWLDMAQPEEDGD0999-61-46 09:13:000.96[facility] HermannELECTROLYTES 2018-08-16 09:13:004.2[facility] QurtxmkRPPYASETIUMO5630-26-64 09:13:25114Mqwrtguv PgomxouWDFNQOXRWQWK3117-36-42 09:13:68316Vhpztvts QsyjdnoKAKXJQHQJYJL7122-02-71 09:13:0024[facility] LxzqcobMHNIGOKENZKF2854-28-49 09:13:0019[facility] SQAYEMECVTXO8234-06-20 09:13:0086[facility] MvysbvsSYRVYXEJSKYS0932-39-81 09:13:00 9.0[facility] RgimcmpDXFDNFDQPH1127-26-01 09:13:001+ *ABN*(08/16/18 4:13 AM) [facility] CknpzlzALZENUUJRC2633-31-75 09:13:002.7[facility] HermannHEMATOLOGY 2018-08-16 09:13:001.3[facility] PlkarssJCTVYOELRZ2140-82-77 09:13:0056.2[facility] GndhredXHSOFICNMC3253-33-93 09:13:000.4[facility] XarwqxoXLFOVKKIFH0541-58-34 09:13:0026.8[facility] QabiylaTYYRPIGYNR0342-85-96 09:13:008.7[facility] SPXETKYMYA8787-04-45 09:13:002.1[facility] PifxfenBLEUNXIVEA2958-25-86 09:13:006.2 [facility] ZmyziwxQWYPOEEEGW2415-47-77 09:13:000.1[facility] HermannHEMATOLOGY 2018-08-16 09:13:000.3[facility] SjsjuubMMKSBISRQF7618-25-33 09:13:0077.7[facility] BhdvjlyDTRLLKFQCY7444-39-85 09:13:0010.5[facility] FhnqkulEJXMPOURXT4468-61-52 09:13:0033.2[facility] PunkbxxLIJVULKFUB9405-62-34 09:13:004.7[facility] QFROWKTNHE6886-59-80 09:13:004.27[facility] BkvuhqjSVNUVEPIOX4783-33-39 09:13:00 Test Item Value Reference Range Interpretation Comments MCH (test code = MCH) 24.5 pg 27.0-31.0 [facility] KsyafxyVXEOIFMQOD5765-95-20 09:13:52500Zlwqdpfm HermannHEMATOLOGY 2018-08-16 09:13:007.8[facility] XwwkdnySUEKDLYWRN6937-37-85 09:13:0031.5[facility] FhgfcqvHCTPPVXHIS2896-80-82 09:13:0019.2[facility] GxjcgglSXLHBKWPJG1077-64-22 02:46:00Negative *NA*(08/15/18 9:46 PM)[facility]annBLOOD BANK RESULTS 2018-08-16 02:44:00Negative (08/15/18 9:44 PM)[facility] HermannCARDIAC ENZYMES 2018-08-16 02:42:00<0.02[facility] HermannCHEM UMUWK3170-69-44 02:42:19737 [facility]annCHEM SFFGR0512-45-45 02:42:000.2[facility] HermannCHEM PANEL 2018-08-16 02:42:000.3[facility] HermannCHEM OOQGH7792-53-96 02:42:87221Arzlswmt HermannCHEM HPRYS5068-90-93 02:42:52994Shgfphnk HermannCHEM UYFPF9117-61-70 02:42:10082Fasayvzh HermannCHEM WGUCK0165-86-81 02:42:000.1[facility]annCHEM AXCVH9248-31-28 02:42:003.0[facility]annCHEM ABJUR8775-09-95 02:42:006.9 [facility]annCHE[facility] BLAQI1275-92-97 02:42:003.9[facility] HermannCHEM PANEL 2018-08-16 02:42:00 Test Item Value Reference Range Interpretation Comments A/G Ratio (test code = A/G Ratio) 0.8 1 0.7-1.6 [facility]CHE[facility] VTIHK2239-46-41 02:42:0068[facility] HermannCHEM PANEL 2018-08-16 02:42:003.9[facility]annCHEM YHZJI7454-05-96 02:42:63508Flpwcynl HermannCHEM NOXJS1193-46-00 02:42:008.6[facility] HermannCHEM XXIHF4847-53-72 02:42:0025[facility] HermannCHEM DZZYT1086-25-04 02:42:76748Ispsuhmx HermannCHEM FUYEO3106-26-19 02:42:001.16[facility] HermannCHEM XDBQY0098-42-91 02:42:0021 [facility]annCHEM AHFVC3575-50-05 02:42:0088[facility] HermannCHEM PANEL 2018-08-16 02:42:0012.9[facility] KuvjflnMIEZPCJOCW1581-95-25 02:42:0019.1[facility] YmmxfbpNUGZKDYEKX9540-32-62 02:42:008.0[facility] ZkripinAOBRQIEXYG8548-19-00 02:42:76661Usvhknpe IhcgwgjAHHARYCDKP6535-29-37 02:42:0031.2[facility] ACZBSYNUIO8301-33-16 02:42:0033.3[facility] HsmilneARNCWLEYRR4881-55-96 02:42:00 10.4[facility] UedjdgkPXXYJHXQZM2812-65-05 02:42:004.26[facility] HermannHEMATOLOGY 2018-08-16 02:42:0078.2[facility] BwpdjblHHXAFUYTVM3158-90-27 02:42:00 Test Item Value Reference Range Interpretation Comments MCH (test code = MCH) 24.4 pg 27.0-31.0 [facility] EpbgyquQGEBHCWOSH6794-80-42 02:42:006.0[facility] HermannHEMATOLOGY 2018-08-16 02:42:004.0[facility] DswwkkwKGOJZWAVWV5737-49-19 02:42:001.3[facility] UkmqzqvBSIOAXCEYI1903-64-93 02:42:001.4[facility] LspymwgZKUCMISEOW0433-04-74 02:42:003.5[facility] ZqthuhkBVHRJPXTGE1814-68-51 02:42:0021.4[facility] MDWLLRDVVV7768-28-77 02:42:007.3[facility] ApxtjriNYSWZUQZLE3343-76-06 02:42:000.1 [facility] JquecxeWOLVRRPXSW9831-42-04 02:42:001+ *ABN*(08/15/18 9:42 PM)[facility] JszezpuWNGXFNBIKN6087-67-66 02:42:000.4[facility] ZphhuvpPZCUYBOXGG3414-06-93 02:42:000.2[facility] OkjhhlpWWIFHKVCIX0150-92-28 02:42:0066.4[facility] QGZVEVORTQ0544-24-20 02:42:00 Test Item Value Reference Range Interpretation Comments PT (test code = PT) 13.5 s 12.0-14.7 [facility] HkckshhJEEXSDHHUP0978-20-97 02:42:00 Test Item Value Reference Range Interpretation Comments PTT (test code = PTT) 28.8 s 22.9-35.8 [facility] SvovquyDIVEGYKUOW9225-11-53 02:42:00 Test Item Value Reference Range Interpretation Comments INR (test code = INR) 1.05 1 0.85-1.17 [facility] YSZKW2588-26-64 10:50:007.7[facility] HermannCHEM PANEL 2018-06-03 10:50:003.6[facility] HermannCHEM JVVWX6202-78-14 10:50:83469Dkmvrgpa HermannCHEM YPCFK0448-99-82 10:50:77964Zbsaichn HermannCHEM HBROS3994-55-45 10:50:000.86[facility] HermannCHEM XXLZE3107-94-19 10:50:0094[facility] HermannCHEM MSUFA6654-38-44 10:50:0022[facility] HermannCHEM KQQEC2206-32-79 10:50:0089 [facility]annCHEM HRKJS7035-76-22 10:50:0010[facility] HermannCHEM PANEL 2018-06-03 10:50:0012.6[facility] HermannCARDIAC AMQBWNC3460-14-68 20:59:23694 [facility]annCARDIAC ZZCKZSS4183-66-60 20:59:00<0.02[facility] CARDIAC EWBNFVW7439-75-73 20:59:0038[facility] IljzrlzCQBVVUAJWYNO1919-32-47 20:59:009.7[facility] OpjcojjXUAWXUUEYTVN4046-69-37 20:59:00 Test Item Value Reference Range Interpretation Comments B/C Ratio (test code = B/C Ratio) 11 1 6-25 [facility] OthkmkzOXFPWULBGWZH2736-10-03 20:59:00 Test Item Value Reference Range Interpretation Comments A/G Ratio (test code = A/G Ratio) 0.6 1 0.7-1.6 [facility] NbmmkiwDUJIJCHQBDOH0577-36-04 20:59:004.2[facility] HermannELECTROLYTES 2018-06-02 20:59:002.7[facility] JbwbyklPNVCPOIEYUAP8168-76-32 20:59:0098[facility] MuzupljINKKPBDSTAQM6320-39-73 20:59:0026[facility] GvmjffmZTZIZJSLYVUL5127-39-51 20:59:0011[facility] JfximvoZYHDELZZYUWI2231-91-25 20:59:0082[facility] YPCPHTGQSAWR7420-99-38 20:59:006[facility] GuhyxctZURPABFSIXVZ2933-25-83 20:59:00 13[facility] EhujkyzEICHUXYMPVCW2201-81-54 20:59:001.00[facility] SUXXZHLWYOOO0946-20-03 20:59:000.1[facility] BaeeholJMPCJMDNLDCE5170-07-62 20:59:006.9[facility] PdensigUIZHOYWBHXST0529-34-86 20:59:008.2[facility] NAAECJMERZDQ9868-00-39 20:59:85370Mrufqgup GjgdddeFTFGWSUWMCLY6472-48-80 20:59:62290Bwozumim DpyinsqRBEVHFEZKSBO2034-70-67 20:59:10865Ddtdbbnp [facility] OFJSMFZEQFDS5163-93-74 20:59:003.7[facility] IzwqpjcYGSNIKHRIM5519-66-56 20:59:00 Test Item Value Reference Range Interpretation Comments PT (test code = PT) 13.3 s 12.0-14.7 [facility] XyiwamlKBYWFSHHJR8847-23-55 20:59:00 Test Item Value Reference Range Interpretation Comments INR (test code = INR) 1.03 1 0.85-1.17 [facility] HyccujkVCUDRQPCKH7812-76-66 20:59:00 Test Item Value Reference Range Interpretation Comments PTT (test code = PTT) 31.9 s 22.9-35.8 [facility] QhphuqmJMLRJETHMR4769-60-58 20:59:008.1[facility] HermannHEMATOLOGY 2018-06-02 20:59:0030.8[facility] AoduaopQCPUUTFKYL0458-92-49 20:59:0081.3[facility] YkzqluyXXWWWYYIOA6884-73-22 20:59:00 Test Item Value Reference Range Interpretation Comments MCH (test code = MCH) 25.1 pg 27.0-31.0 [facility] GemdmlzBKMMZKOHCG3262-02-87 20:59:0018.6[facility] HermannHEMATOLOGY 2018-06-02 20:59:003.52[facility] LeropzdILNVBWOTJU1600-90-77 20:59:008.8[facility] JcbjwoxOQOGOYEROL3422-56-33 20:59:006.0[facility] VyycpemNGQFVWLLCO1434-90-59 20:59:0028.6[facility] WviqwpfKWGQKUIPAP5134-48-44 20:59:51512Thiqczha [facility] GBSFWIGAGA3773-42-92 20:59:0010.1[facility] OircffvALPFDBQNJQ2824-51-64 20:59:00 16.4[facility] SvhadshADVHYSBTYP0582-07-65 20:59:001+ *ABN*(06/02/18 3:59 PM) [facility] GvwnjdrHAKKDBVKLA6798-85-18 20:59:000.2[facility] HermannHEMATOLOGY 2018-06-02 20:59:004.1[facility] YzyyhfiOZSZOMUKGE4626-13-89 20:59:000.8[facility] KtsewzwKVTRKBCUVK2485-09-31 20:59:004.0[facility] EkerussXCBFMWWLKC1811-40-86 20:59:0068.7[facility] NsdwqkbPGBPSFYAMH5992-28-00 20:59:002+ (06/02/18 3:59 PM) [facility] AiolubyYOVCQSOHLO8448-16-85 20:59:00Moderate *ABN*(06/02/18 3:59 PM) [facility] TqwtwxiXSHGEKTOWK8280-97-43 20:59:001.0[facility] HermannHEMATOLOGY 2018-06-02 20:59:000.6[facility] IccewdeHMSIPILWLB8010-35-71 14:40:26649Ebajjbut AngnlkfADLJWMKHIK1036-56-53 14:40:008.3[facility] HcdghkdQNOJHPFGGB8145-76-49 14:40:0032.2[facility] ZawbbxvXEICOLVQHA5903-67-71 14:40:0019.0[facility] QSBJMWHZEY6176-61-84 14:40:008.8[facility] KuwqhtsESFISOCZCT0769-56-27 14:40:00 3.40[facility] PvlzsznCKHWOJDWMH1575-72-99 14:40:0080.1[facility] HermannHEMATOLOGY 2018-05-21 14:40:00 Test Item Value Reference Range Interpretation Comments MCH (test code = MCH) 25.8 pg 27.0-31.0 [facility] TejmhfwDAROWRBEXF7221-38-86 14:40:0027.3[facility] HermannHEMATOLOGY 2018-05-21 14:40:007.3[facility] GblvknjDGODLWUWQB9236-04-22 14:40:001.3[facility] XdxchenYHYVEHLYFI4667-38-35 14:40:004.6[facility] EhmehqgOXJZLPATKA6704-10-33 14:40:007.5[facility] YrxsblqTQSSEZZGFV2137-32-31 14:40:008.8[facility] FIGRPATDCF0249-83-08 14:40:0063.4[facility] QtfvtpoRQEQWJVTBV8019-35-09 14:40:00 19.0[facility] GdzbklgXUXEYRAHPY8405-34-81 14:40:000.5[facility] HermannHEMATOLOGY 2018-05-21 14:40:000.1[facility] BefgiapHGLBIZBMKY0493-64-15 14:40:000.6[facility] EfmzphkJGPDKCNIAA9686-70-20 14:40:001.4[facility] HermannCHEM EUAYQ9376-07-17 11:30:008.3[facility] HermannCHEM YDLJO6695-07-52 11:30:004.3[facility] HermannCHEM PEJDE7129-77-66 11:30:53429Btwahydt HermannCHEM MTAQF5238-15-47 11:30:97155 [facility]annCHEM SVFIF3151-37-98 11:30:60827Mmhzhvur HermannCHEM PANEL 2018-05-21 11:30:000.66[facility] HermannCHEM CYMNZ8572-88-42 11:30:0029[facility] HermannCHEM JIMWL4176-31-52 11:30:0014[facility] HermannCHEM TGKPJ9551-76-17 11:30:0079[facility] HermannCHEM NXQKP9575-39-13 11:30:0010.3[facility] FVUPNFSXOX9184-08-42 11:30:0012.8[facility] HermannCARDIAC AXEVCHM9781-25-55 17:35:00<0.02[facility] HermannCARDIAC LEMPHTR5691-93-26 17:35:0033[facility] HermannCARDIAC RWJUVTV1653-68-45 12:45:00<0.02[facility] HermannCARDIAC ENZYMES 2018-05-20 12:45:0033[facility] JzaqlcmRMNMGTGPCOFI7498-14-40 06:11:009.1[facility] UvluinxZACQCLZDFDKE4294-70-99 06:11:46340Ylewituk TxiwfnrETTFZDAXIGVH2342-60-77 06:11:72425Qbeustrp NchjzaaDITFUZXINBWO6697-90-43 06:11:004.1[facility] WYRSKORBKRHH3757-75-53 06:11:0031[facility] XeqwbzuEVVBCUYDSPHX6424-23-55 06:11:00 15[facility] KvbglurJZFQLBJKQHZE6259-51-28 06:11:0096[facility] HermannELECTROLYTES 2018-05-20 06:11:000.72[facility] MrdejzeFPGLTXWRXAHZ8323-03-26 06:11:50740 [facility] VofrerrQXFGMPSTDYWF9720-62-01 06:11:008.3[facility] HermannHEMATOLOGY 2018-05-20 06:11:008.0[facility] OpywhskVDSUNOLJRP5705-36-69 06:11:19266Rcaknvmr WfgtecvFPOBOGAGRA7230-48-63 06:11:0018.6[facility] VkascsvWUDNWUFWMX4491-08-54 06:11:00 Test Item Value Reference Range Interpretation Comments MCH (test code = MCH) 26.0 pg 27.0-31.0 [facility] TysujduDSYRLUFJBN4096-31-24 06:11:0081.5[facility] HermannHEMATOLOGY 2018-05-20 06:11:0031.9[facility] QoragaiSXTBAEYOWJ7005-49-92 06:11:003.16[facility] KaofukwYUQFOMXFKZ0156-32-24 06:11:0025.8[facility] ZjsetcjZSEADLNPOK2121-34-29 06:11:008.2[facility] GnsghqvCIVNYVDYYP1548-39-73 06:11:007.5[facility] YSDCOOEBXI2432-48-12 06:11:000.7[facility] ItjfarmMTXYIPQYKO6641-57-01 06:11:000.1 [facility] MexdkowGLXHCKCCHA5716-41-45 06:11:000.4[facility]annHEMATOLOGY 2018-05-20 06:11:001.6[facility] IannyhkKNIZCCKOMD8299-25-50 06:11:004.8[facility] UckcxzdLVZKOXLVMK4511-55-36 06:11:001.1[facility] AwyalqnFUAHEVJWNS8516-63-01 06:11:005.2[facility] EkqttyvUOMWTTKGSZ0173-74-82 06:11:009.1[facility] BFEGKGYLEX2819-86-90 06:11:0021.2[facility] KmwurcrPCHVFOPFPT6160-18-16 06:11:00 63.4[facility] YyakwjgZSGNEWZGBM2069-21-05 06:11:00 Test Item Value Reference Range Interpretation Comments Daly GOMESD (test code = Daly Thompson 0030 1 TND) [facility] VddrogbVWYMWZGZJT3600-95-92 06:11:007.3[facility]annCHEM PANEL 2018-05-19 10:50:001.8[facility]annCHEM MOGEK2417-63-41 10:50:003.3[facility] LhqfqrhIJLDXXPRKZSU4576-02-62 10:50:009.9[facility] TfqhbleQCBPIJCDBWPD9859-02-13 10:50:007.9[facility] LpfaxxgLCFHUWKORKZE0367-65-98 10:50:71032Kidlibcb [place] TGSFCKSKZJRR2648-43-49 10:50:000.72[facility] UgmhfdtQVUSQOZNRWGR5801-28-77 10:50:95678Gjuiavga GzmmmyxXVXLNRGSWSNV2415-82-60 10:50:003.9[facility] NOXOQAVXITYJ1888-65-60 10:50:28604Jgvmmttf TkfwrnlNMTFEHJXZLSY9237-06-33 10:50:0015[facility] XgihwnrEKAVJTIBELVC8058-37-26 10:50:0028[facility] NIZDPVAFDJYK5947-94-94 10:50:30237Pxditpyl JvxkesbXDIREBZAYU1255-45-25 10:50:00 0.1[facility] QllirctUVWTHTTKOZ6128-27-50 10:50:004.6[facility]annHEMATOLOGY 2018-05-19 10:50:001.5[facility] KaaoqbuVBBZCXIFQN0300-89-32 10:50:0022.0[facility] UgzxituZYDJFMDLAI4398-49-51 10:50:006.9[facility] WfepgpsGSMGPPVXED9544-16-73 10:50:000.7[facility] SvncfvmCYFBDOSBXM3172-26-18 10:50:004.5[facility] OPVYCURSRK7504-86-96 10:50:000.5[facility] TctlkrxHSCBVZSRAC7109-60-80 10:50:000.3 [facility] UcrawbxXXIQPPRUSQ4618-03-13 10:50:0065.9[facility]annHEMATOLOGY 2018-05-19 10:50:00 Test Item Value Reference Range Interpretation Comments MCH (test code = MCH) 26.3 pg 27.0-31.0 [facility] DnsctwaELRXMLZUBC7057-36-57 10:50:0032.2[facility]annHEMATOLOGY 2018-05-19 10:50:0024.2[facility] WeyzanuIPZPWACHJL2749-88-73 10:50:0081.7[facility] BymubtyMLLSCXIWGA7579-00-50 10:50:73423Qagfnyre ElvehwjWWWANGFAIE2321-71-56 10:50:0018.4[facility] UdjpeyuMIWUJVSUCS7272-10-10 10:50:008.2[facility] GVDMDUKJVQ9864-80-37 10:50:002.96[facility] YkurekkVDLRTTVVXU4554-88-10 10:50:00 7.8[facility] SgfzgfdBCOSHJKBSA6476-37-78 10:50:007.0[facility] HermannTOXICOLOGY 2018-05-19 10:50:0021.8[facility]annCHEM XGVOD4571-58-61 09:08:000.6[facility]annCHEM NSFWR1071-92-20 09:08:006.5[facility]annCHEM XPROY2786-52-84 09:08:0071[facility]annCHEM ISYRP9170-98-07 09:08:0012[facility] QXMOH8692-77-10 09:08:0012[facility] RetargetlyannCHEM ZOLQD3671-17-65 09:08:002.5 [facility] FLIEH1999-46-25 09:08:00 Test Item Value Reference Range Interpretation Comments A/G Ratio (test code = A/G Ratio) 0.6 1 0.7-1.6 [facility]CHE[facility] GYZNY9972-84-50 09:08:004.0[facility] RetargetlyannCHEM PANEL 2018-05-18 09:08:00 Test Item Value Reference Range Interpretation Comments B/C Ratio (test code = B/C Ratio) 19 1 6-[address] [facility]KCTXZBOUFS5628-16-02 20:56:00 Test Item Value Reference Range Interpretation Comments INR (test code = INR) 0.89 1 0.85-1.17 [facility]TZKSBASCW3213-31-58 20:56:00 Test Item Value Reference Range Interpretation Comments PT (test code = PT) 11.9 s 12.0-14.[address] [facility] PNILHHG3940-79-91 15:16:00Product available 1(05/17/18 10:16 AM)[facility] HJQCQUX2846-97-29 13:26:00Negative (05/17/18 8:26 AM)[facility] [employer] XHNKQ3173-57-05 09:48:003.2[facility]CHE[facility] VJHLG3914-48-32 09:48:000.7[facility]argetlyannCHEM REQBJ5136-84-32 09:48:005.9 [facility] YNFBG4940-51-64 09:48:002.5[facility] RetargetlyannCHEM PANEL 2018-05-17 09:48:0080[facility] RetargetlyannCHEM JAPHC1858-72-38 09:48:0012[facility]annCHE[facility] BOPME2424-47-30 09:48:008[facility]annCHEM AXJIS5912-20-12 09:48:00 Test Item Value Reference Range Interpretation Comments A/G Ratio (test code = A/G Ratio) 0.7 1 0.7-1.6 [facility]CHE[facility] SPYTI9827-26-12 09:48:003.4[facility]annCHEM PANEL 2018-05-17 09:48:00 Test Item Value Reference Range Interpretation Comments B/C Ratio (test code = B/C Ratio) 14 1 -25 [facility]annCHEM ZDFBW1737-65-15 09:48:001.8[facility]annHEMATOLOGY 2018-05-17 09:48:00 Test Item Value Reference Range Interpretation Comments INR (test code = INR) 1.15 1 0.85-1.17 [facility] GjigiivFRQVIDBHGY6906-81-49 09:48:00 Test Item Value Reference Range Interpretation Comments PT (test code = PT) 14.5 s 12.0-14.7 [facility] KukiyeoVQYYZQDYYK2348-66-30 09:48:00 Test Item Value Reference Range Interpretation Comments PTT (test code = PTT) 43.8 s 22.9-35.8 [facility] BEYPA0546-73-88 10:21:006[facility]CHE[facility] PANEL 2018-05-16 10:21:00 Test Item Value Reference Range Interpretation Comments A/G Ratio (test code = A/G Ratio) 0.7 1 0.7-1.6 [facility] GLAAH0171-15-00 10:21:005.8[facility]annCHE[facility] PANEL 2018-05-16 10:21:003.4[facility]CHE[facility] WNBJG4489-82-21 10:21:00 Test Item Value Reference Range Interpretation Comments B/C Ratio (test code = B/C Ratio) 15 1 08-27 [facility] DNYDI0963-01-25 10:21:0011[facility]annCHE[facility] PANEL 2018-05-16 10:21:001.6[facility]annCHE[facility] ISLOR5283-94-51 10:21:002.4[facility]annCHE[facility] DXMQZ7410-00-95 10:21:0075[facility] HYCPP9860-97-95 10:21:001.8[facility]CHE[facility] WFQAR9779-75-37 10:21:003.0[facility] QYQEAYHWGI0721-90-45 10:21:0016.6[facility]annPARATHYROID RRWCQEW0667-67-17 08:07:001.15[facility]annPARATHYROID KUGULKL1675-31-60 08:07:001.15[facility]annPARATHYROID LXOVFRN0776-88-46 08:41:001.11[facility]annPARATHYROID PMMGFUN3529-86-93 08:41:001.09[facility]BL[facility] BANK WPRGQSW9023-82-37 04:19:00Product available 2(05/13/18 11:19 PM)[facility] RESULTS 2018-05-14 02:42:00Product available 3(05/13/18 9:42 PM)[facility]annCHE[facility] WGGYL7408-70-95 01:42:000.9[facility] LnpavgmGAXUHALOUH8156-69-02 01:42:00 Test Item Value Reference Range Interpretation Comments PT (test code = PT) 13.9 s 12.0-14.7 [facility] PxggkriVVPJJCMHRA0717-67-49 01:42:00 Test Item Value Reference Range Interpretation Comments INR (test code = INR) 1.09 1 0.85-1.17 [facility] McpguirZUJZIWQEXT1052-21-43 01:42:00 Test Item Value Reference Range Interpretation Comments PTT (test code = PTT) 29.8 s 22.9-35.8 [facility] PfoebopKYBZLYTZPX4205-97-76 10:03:0033[facility]annHEMATOLOGY 2018-05-13 10:03:00 Test Item Value Reference Range Interpretation Comments PTT (test code = PTT) 32.6 s 22.9-35.8 [facility]FjdnbcxJCFVEOCVLM8101-16-66 10:03:0012.4[facility] UFFLILO8183-43-52 01:00:00Negative (05/12/18 8:00 PM)[facility]annCHEM PANEL 2018-05-12 09:58:00<0.1[facility] VggqjnkBAQBUSJBBH5542-59-27 09:58:0030 [facility] XzyjpfnUBXWQCJZYT6342-42-36 09:58:001+ *ABN*(05/12/18 4:58 AM)[facility] DcxqtjzPHFTEYVICI1664-98-93 09:58:009.8[facility]annCHEM PTSDN3178-31-32 10:50:00<0.1[facility] GtcqkegJERQLDIZFY4096-34-09 10:50:0034[facility] EHRZQYURPU3039-23-36 10:50:001+ *ABN*(05/11/18 4:50 AM)[facility]annIMMUNOLOGY 2018-05-11 10:50:008.7[facility]annMEROPENEM:SUSC:PT:ISOLATE:ORDQN:ALFREDITO 2018-05-10 23:28:00Staphylococcus Species, Not S. aureusMemorial HermannCHEM OEMNS9821-20-03 17:06:00<0.05[facility] XxuqhjqDWIACBGQYD8850-39-56 09:26:001+ *ABN*(05/10/18 3:26 AM)[facility] BizdhyrEEDTKTGBWV2802-53-39 20:34:00Normal (05/09/18 2:34 PM)[facility]annCARDIAC KXPCWLN8213-44-81 10:47:01493Vybjzfkt [facility] CHEM CQUHF1682-32-38 10:47:003.3[facility]CHE[facility] ZUGFA0946-40-48 10:47:002.2 [facility]CHE[facility] DSECV7935-40-24 10:47:002.3[facility]annCHEM PANEL 2018-03-01 10:47:000.81[facility]annCHE[facility] YWQQG0743-97-99 10:47:0014[facility]annCHE[facility] PCDTT3298-31-03 10:47:009[facility]annCHE[facility] YIETM2784-67-59 10:47:0097[facility]annCHE[facility] KFION7611-72-05 10:47:13813Ptaeivel HermannCHEM XTWJF3966-53-39 10:47:003.3[facility]annCHE[facility] QEKVB9298-91-17 10:47:32209 [facility]CHE[facility] KNGIH9371-75-73 10:47:006.7[facility]annCHEM PANEL 2018-03-01 10:47:000.7[facility]annCHEM AGAWV5067-89-81 10:47:008.3[facility]annCHEM IROFY2622-14-33 10:47:0029[facility]annCHEM BBCFT1592-81-36 10:47:0014[facility]annCHEM VAXIM2220-64-81 10:47:58647Eayvtpdu HermannCHEM DGLWE9956-96-05 10:47:27924Ibwznujp HermannCHEM GAWVD0356-44-36 10:47:00 Test Item Value Reference Range Interpretation Comments B/C Ratio (test code = B/C Ratio) 17 1 6-25 [facility]CHE[facility] FNYHU4744-22-73 10:47:004.4[facility]annCHEM PANEL 2018-03-01 10:47:00 Test Item Value Reference Range Interpretation Comments A/G Ratio (test code = A/G Ratio) 0.5 1 0.7-1.6 [facility]CHE[facility] IJONB3436-58-59 10:47:0010.3[facility]annHEMATOLOGY 2018-03-01 10:47:001+ *ABN*(03/01/18 4:47 AM)[facility]annHEMATOLOGY 2018-03-01 10:47:001.4[facility] EnutpxlEGNIMMALUB6668-50-88 10:47:000.8[facility] KwqvjezSZLHDZPGVQ6903-56-80 10:47:0078.3[facility] VhzgxxsUNRBINERIK2029-96-05 10:47:000.4[facility] YjhrucuAICNMHPCFV5421-61-57 10:47:008.1[facility] SDWPFDQEOM8150-14-46 10:47:007.9[facility] EhiifphTLOMEEESYF4747-30-32 10:47:00 13.4[facility] MouwlngBCBOZRXOSH1535-66-75 10:47:0027.0[facility]annHEMATOLOGY 2018-03-01 10:47:0078.7[facility] ZanciqvUOMJFGWOYY4851-70-89 10:47:0032.7[facility] AftjvnjONXFFWHMRY9381-47-28 10:47:00 Test Item Value Reference Range Interpretation Comments MCH (test code = MCH) 25.8 pg 27.0-31.0 [facility] HdmfswcRHYKQMIIAQ6629-06-21 10:47:008.2[facility]annHEMATOLOGY 2018-03-01 10:47:16359Jltahbnj NkbowzjBYQQWGGRGM9317-89-36 10:47:0017.9[facility] RrvwshwKFEWWIURMA4019-68-41 10:47:003.42[facility] TwqyookUWMMNPEGDH4721-80-54 10:47:008.8[facility] UzsoufnOZNVSCUHGD7462-84-61 10:47:0010.3[facility] CARDIAC GLMBHOH7659-58-93 16:12:00<0.02[facility]annCHEM NVNZT5760-41-59 16:12:002.1[facility]annCHEM OUMVY0962-54-99 16:12:10120Ioeyswig HermannCHEM NZGUB5945-48-75 16:12:003.8[facility]annCHEM TLHJW8924-56-07 16:12:47807 [facility]annCHE[facility] MCLBP5307-98-31 16:12:05248Qxhvwhoy HermannCHEM PANEL 2018-02-28 16:12:0096[facility]annCHEM QYCYP8041-95-42 16:12:00 Test Item Value Reference Range Interpretation Comments B/C Ratio (test code = B/C Ratio) 7 1 6- [facility]annCHE[facility] CYUZN2779-31-51 16:12:0015[facility]annCHEM PANEL 2018-02-28 16:12:000.83[facility]annCHEM WWEUM8691-88-68 16:12:0020[facility]annCHE[facility] IGXSL0729-18-44 16:12:0013.8[facility]annCHEM IZFBA2926-00-20 16:12:002.5[facility]annCHEM MRYIN7759-09-05 16:12:75670Mvrirohg HermannCHEM XJCXN4218-58-58 16:12:006[facility]annCHEM PEEDP8276-24-46 16:12:0023[facility]annCHEM THNEN7414-94-18 16:12:008.8[facility]annCHEM MLIWT6415-23-54 16:12:000.2[facility]annCHEM KDMFK1792-51-18 16:12:007.5[facility]annCHEM JCLZN1959-84-42 16:12:005.0[facility]annCHEM HTITH5620-88-25 16:12:00 Test Item Value Reference Range Interpretation Comments A/G Ratio (test code = A/G Ratio) 0.5 1 0.7-1.6 [facility] HermannCHEM BJEGU3427-64-07 16:12:002.9[facility]annCARDIAC ENZYMES 2018-02-28 04:37:00<0.02[facility]annCARDIAC OZZKUVV0032-30-21 04:37:00 2678[facility] GttxjaqHJPQOEQFZNSN3154-85-32 04:37:0025[facility] MZYFDETGVBJI2573-66-27 04:37:008.1[facility] KqtdqjsFKDIDBAJFLMG0596-65-05 04:37:003.6[facility] JqxfxwmUUHOZBLPKOGD1702-51-67 04:37:72290Tzdtsuqg [facility] DNZOZBDVITYD3811-54-59 04:37:78227Brfdwwxk NeiajrtTYEWSLMAWLIA4799-75-24 04:37:000.80[facility] BomahiyCKZHSERPEQRQ6182-45-71 04:37:008[facility] JKJRVIABKVAQ6403-92-24 04:37:0088[facility] HcspeovQGDXDHIMOXTQ2485-23-13 04:37:00 97[facility] YserugrKSDYPEYDFWYB8897-54-16 04:37:0012.6[facility]annHEMATOLOGY 2018-02-28 04:37:007.8[facility] HlxgxwnGZPMDBOJLS3136-99-99 04:37:003.53[facility] UhdzziqWDWWPKJKDB9457-21-89 04:37:009.0[facility] QqyevqeCPIRGNVQMU7355-05-05 04:37:00 Test Item Value Reference Range Interpretation Comments MCH (test code = MCH) 25.4 pg 27.0-31.0 [facility] MuisgwgGSLJVXRHJZ1863-18-64 04:37:0027.5[facility]annHEMATOLOGY 2018-02-28 04:37:0078.1[facility] QdmeffkEXIQEKNJRW2895-91-13 04:37:61245Sikkopws MbkohakXTNWBGUMEC3265-04-80 04:37:0032.5[facility] JpmwiekJQFETFEFMP2008-58-41 04:37:008.2[facility] ZqmewqfRCWIXEFYIG2888-27-62 04:37:0017.8[facility] NWSUHURWFZ4390-77-77 04:37:001+ *ABN*(02/27/18 10:37 PM)[facility] RZFLMDLMAP6132-38-28 04:37:004.0[facility] AzkkkpfPIOBOYFMOG3938-22-24 04:37:004.8 [facility] NpylxjfDLJUALNLZO4809-64-53 04:37:001.2[facility]annHEMATOLOGY 2018-02-28 04:37:001.8[facility] KvwdldoDJZNFYJAVL9469-68-08 04:37:000.7[facility] YvxkeuxMMKWHXOAJQ3943-81-42 04:37:000.1[facility] EnnthmbUQHSCJPAJQ9879-18-09 04:37:000.3[facility] RookcseGGTZRFBNFC5900-97-70 04:37:0023.7[facility] RCNIFPLKGG5169-12-53 04:37:008.8[facility] OclfmggLMCMSOFASH2762-01-88 04:37:00 62.3[facility]annURINE AND BEULS9694-09-27 04:37:00Yellow *NA*(02/27/18 10:37 PM)[facility] SDCAD9587-30-24 04:37:00Moderate *ABN*(02/27/18 10:37 PM)[facility] BCREN8094-75-63 04:37:001[facility] URINE AND ERBWM5230-55-27 04:37:00Negative (02/27/18 10:37 PM)[facility] URINE AND VAETV9763-27-39 04:37:00Negative (02/27/18 10:37 PM)[facility] URINE AND ZIRTH6572-21-55 04:37:001[facility] IDAEX0789-46-18 04:37:00Negative (02/27/18 10:37 PM)[facility] PVQOP4934-81-49 04:37:00 Test Item Value Reference Range Interpretation Comments UA Spec Grav (test code = UA Spec 1.009 1 Grav) [facility] BPJCJ3738-46-86 04:37:00 Test Item Value Reference Range Interpretation Comments UA pH (test code = UA pH) 6.0 1 5.0-8.0 [facility] PTDTQ7869-00-22 04:37:00Negative *NA*(02/27/18 10:37 PM)[facility] KSRCX8019-61-24 04:37:00Negative (02/27/18 10:37 PM)[facility] DLDRP6689-10-12 04:37:00Negative *NA*(02/27/18 10:37 PM)[facility] XNOOL7419-75-87 04:37:00Negative *NA*(02/27/18 10:37 PM)[facility]annVIRAL - ULWGACAI7193-17-22 04:37:00 Negative (02/27/18 10:37 PM)[facility]annVIRAL - FMAXDBWA2294-74-88 04:37:00 Negative (02/27/18 10:37 PM)[facility] YqmzhdaIJFCDTPXQRDG1886-42-07 12:27:0012.7 [facility] WmkvvyvTOZWONPPUZVX0347-80-49 12:27:0079[facility] HermannELECTROLYTES 2018-02-21 12:27:003.7[facility] IowprakFBNVXBGUCHLB3073-69-08 12:27:78552Wpegooip EnorqbvZJSOWMUBGZAS1447-62-05 12:27:33109Zqphuqqq UucixuyIWAZMUEXEIDO2991-68-01 12:27:40812Fddtgcdk MmlxjdzBEOMWHPKKXEQ5314-85-39 12:27:000.68[facility] KYUTLONPXVXW0660-92-53 12:27:008.2[facility] ZfgtlxeOXGSTYXZTJWF6930-20-10 12:27:0026[facility] DhrfgmdGRQSZOEEYAXZ7529-76-67 12:27:009[facility] ZBCSSFORBY8849-39-49 12:27:008.2[facility] AtwvgwtGCYLZGRQSW6330-30-68 12:27:00 17.6[facility] CytofwxBOMQDVZIBU6893-43-52 12:27:97585Hacqqvbb HermannHEMATOLOGY 2018-02-21 12:27:0080.4[facility] EpknweuFOLVZQQJIT8409-67-96 12:27:00 Test Item Value Reference Range Interpretation Comments MCH (test code = MCH) 25.7 pg 27.0-31.0 [facility] LuehdkiITWWLFJVXR8552-64-15 12:27:0032.0[facility] HermannHEMATOLOGY 2018-02-21 12:27:003.65[facility] YxedfvxTNQOUSTVTA4957-27-83 12:27:006.8[facility] PjlrhhqNTMCWAVRYM6513-69-50 12:27:009.4[facility] OiufkquSEOIOMLZIL7751-40-00 12:27:0029.3[facility] ZpxyogvNJGRWMPVMW4201-74-71 12:27:001.4[facility] ARGSKWDGGQ1502-86-04 12:27:000.6[facility] UxeqjedFZICMYABXW8755-64-25 12:27:000.1 [facility] BimddplNBDOWQSWCT8976-68-80 12:27:004.5[facility] HermannHEMATOLOGY 2018-02-21 12:27:0019.9[facility] SygdcsnYQCOBELTVF8309-31-42 12:27:008.8[facility] XetkzqnSZHIWVCNHH0355-64-05 12:27:0066.4[facility] PozzohzKNRRDWUAYZ7098-59-91 12:27:000.3[facility] GfffcjsVMHGMBOPXC3707-62-21 12:27:001.0[facility] FPFOXYGBJU0069-68-70 12:27:003.9[facility] HermannCHEM DRSEN8597-40-80 10:35:007.8 [facility]annCHEM YSERG5134-25-18 10:35:18540Vnabnydw HermannCHEM PANEL 2018-02-20 10:35:000.56[facility]annCHEM ZVPAO8160-50-43 10:35:002.9[facility]annCHEM AIQIU9021-79-09 10:35:0089[facility]annCHEM MJAWH0770-07-11 10:35:0025[facility]annCHEM MVQDQ1624-22-87 10:35:009[facility]annCHEM WEDCX7024-47-17 10:35:002.1[facility]annCHEM XAQBH9318-47-04 10:35:39552 [facility]annCHE[facility] FCIFO6755-92-28 10:35:12702Hyjlpfys HermannCHEM PANEL 2018-02-20 10:35:003.6[facility]annCHEM EIAZU7870-42-16 10:35:0011.6[facility] LcljsskXKBZTSRJNW2643-71-84 10:35:009.0[facility] ZpaseezCGWNUHAQOO0850-68-66 10:35:003.53[facility] TdawdscEMIVGBVXXA8360-41-45 10:35:0081.1[facility] TWHHFMPOJB9817-08-02 10:35:0028.6[facility] LajktkdISLABGXXFL2842-03-52 10:35:00 6.9[facility] BntyvcuREHPLIHEAV4275-63-02 10:35:007.8[facility] HermannHEMATOLOGY 2018-02-20 10:35:67047Dnttxngu FyzjmsjGXWDCENARI3600-60-51 10:35:0017.5[facility] KdwyelhMIHACZFRYX9529-56-49 10:35:0031.7[facility] RontajqNTFUOEWZHR2985-24-42 10:35:00 Test Item Value Reference Range Interpretation Comments MCH (test code = MCH) 25.7 pg 27.0-31.0 [facility] RxmzelsXPXDVATMRY6379-43-49 10:35:0018.5[facility] HermannHEMATOLOGY 2018-02-20 10:35:0067.0[facility] PjnbihfPGIBRJKUDJ5701-14-79 10:35:009.8[facility] PtsgyxhCYQPSTHCGK8845-00-44 10:35:001.0[facility] CinlzriJOGNTVEWEJ9608-95-07 10:35:003.7[facility] YlzngmqEABSJHXXQO8028-91-70 10:35:000.7[facility] UCAVWEKGKW5060-46-40 10:35:001.3[facility] MrkgqzqGLFZLPFVGO1891-40-58 10:35:004.6 [facility] CxrunpsMSKUXKHHVZ0723-25-92 10:35:000.1[facility] HermannHEMATOLOGY 2018-02-20 10:35:000.3[facility] UnswzfoFDEELZMWIC6764-44-17 10:35:0021.8[facility] DchmulgSWJUSJHEUS3005-06-37 10:35:00 Test Item Value Reference Range Interpretation Comments Daly Thompson TND (test code = Daly Tr 0500 1 TND) [facility] FqzkttaXVCEWFPELHWK3389-64-77 10:29:0011.4[facility] HermannELECTROLYTES 2018-02-18 10:29:47266Igbkpcro RkazfxjHUWGBYHNSCNH0866-77-79 10:29:58461Bbbxjkrv EercpnwQSMZDDELPJKY3699-29-39 10:29:003.4[facility] NmmxwpaPEJNQRAMQRVZ4792-64-40 10:29:007.6[facility] OgnsogiGJPUZTJZTJAT5476-05-21 10:29:0085[facility] FMFHYFHUOUCI2127-07-11 10:29:67685Skfqtccb ZyttdpiYHGPHULEQSQO4240-87-13 10:29:000.54[facility] EsivrydCXVDETRDJUDY0637-91-33 10:29:008[facility] GEZBTSUAQBBE2458-46-32 10:29:0025[facility] LcmatsgKANUDBYUPW6207-64-23 10:29:00 275[facility] MbkjsloYHTMPUXLIE9571-01-15 10:29:0017.0[facility]annHEMATOLOGY 2018-02-18 10:29:0032.4[facility] KylmjhbSSYWTUGKJW0726-22-50 10:29:00 Test Item Value Reference Range Interpretation Comments MCH (test code = MCH) 26.1 pg 27.0-31.0 [facility] XsedglbUBJEOSSZLI2150-85-94 10:29:0080.5[facility] HermannHEMATOLOGY 2018-02-18 10:29:0027.5[facility] XnvfmdlBHLVGEBGTQ0311-46-88 10:29:003.42[facility] StldtynLUBXBPQHXP6980-19-20 10:29:008.9[facility] CqcwpqrMCKZOTYWIG9502-52-16 10:29:006.9[facility] AdawawgDUAQUFGPJQ9496-04-38 10:29:008.0[facility] NSORUQTPDU3994-39-41 10:29:000.7[facility] OlpefyiJXRLZUUCGF4333-05-83 10:29:001.6 [facility] QxwegcyECQYDXLMEL7121-81-11 10:29:000.3[facility] HermannHEMATOLOGY 2018-02-18 10:29:0023.6[facility] IdpthmfDHQRWIJTSC9644-80-21 10:29:0010.1[facility] ZfagnbzNUQBERYYNR8054-00-70 10:29:003.9[facility] EotwisuZHCKNTISYM8167-22-65 10:29:000.7[facility] JcoljqsGFSJQVBORE3144-01-40 10:29:004.2[facility] SDRKJUHXJP1251-06-97 10:29:0061.7[facility] CvriybvSSUMKUARZC6244-61-93 11:52:00 0.1[facility] HermannBACTERIAL - TGNZCSVU7724-35-19 23:42:00Negative (02/16/18 5:42 PM)[facility] QuqsmbkVPIVXRNJEW0484-89-40 12:00:00 Test Item Value Reference Range Interpretation Comments Daly Thompson TND (test code = Vanco Tr 0530 1 TND) [facility] CwuliycTOLGVFTOJI8888-36-06 12:00:006.7[facility] HermannHEMATOLOGY 2018-02-15 22:11:00 Test Item Value Reference Range Interpretation Comments PTT (test code = PTT) 38.4 s 22.9-35.8 [facility]annBLOOD BANK WKHNNKG1770-44-09 09:55:00Negative (02/14/18 3:55 AM) [facility]annCHEM VVTXT7207-39-09 09:55:00 Test Item Value Reference Range Interpretation Comments B/C Ratio (test code = B/C Ratio) 14 1 6-25 [facility]annCHEM BSOAD9858-03-71 09:55:005.3[facility] HermannCHEM PANEL 2018-02-14 09:55:00 Test Item Value Reference Range Interpretation Comments A/G Ratio (test code = A/G Ratio) 0.5 1 0.7-1.6 [facility]annCHEM DSKPB0404-23-12 09:55:002.8[facility] HermannCHEM PANEL 2018-02-14 09:55:0092[facility] HermannCHEM BPQZC1272-46-58 09:55:0021[facility] HermannCHEM WCVZQ0501-15-46 09:55:0015[facility] HermannCHEM HXCGS1082-39-15 09:55:008.1[facility] HermannCHEM JMBGI4357-12-11 09:55:000.2[facility] LYJWWODTWO3852-29-15 09:55:00 Test Item Value Reference Range Interpretation Comments PTT (test code = PTT) 35.4 s 22.9-35.8 [facility] CkrmfwfFIWBODTLYT0457-95-67 09:55:00 Test Item Value Reference Range Interpretation Comments PT (test code = PT) 13.4 s 12.0-14.7 [facility] BdjonxwZQJPZLPBEK6720-00-93 09:55:00 Test Item Value Reference Range Interpretation Comments INR (test code = INR) 1.04 1 0.85-1.17 [facility] HermannCHEM FPRJA2071-05-22 03:06:001.3[facility] HermannHEMATOLOGY 2018-02-14 03:06:0060[facility]annBLOOD BANK ARUPDJB6815-56-53 01:24:00 Product available 4(02/13/18 7:24 PM)[facility] RPKUN5913-08-02 01:00:004[facility]UR[facility] AND XEPAS5025-14-37 01:00:001[facility] URINE AND JUBJC5134-43-60 01:00:00Negative (02/13/18 7:00 PM)[facility] URINE AND ZWIIQ0212-85-76 01:00:00 Test Item Value Reference Range Interpretation Comments UA Spec Grav (test code = UA Spec 1.013 1 Grav) [facility] XNSGV0993-65-96 01:00:00 Test Item Value Reference Range Interpretation Comments UA pH (test code = UA pH) 6.0 1 5.0-8.0 [facility] PNJDT4744-17-05 01:00:00Negative (02/13/18 7:00 PM) [facility] TSQMN9110-46-57 01:00:00Negative (02/13/18 7:00 PM) [facility] GJMXR1432-87-76 01:00:00Negative *NA*(02/13/18 7:00 PM)[facility] LQBCD8835-11-07 01:00:00Negative *NA*(02/13/18 7:00 PM)[facility] WLXXE6981-76-59 01:00:00Negative (02/13/18 7:00 PM)[facility] ABIND8871-70-82 01:00:00Yellow *NA*(02/13/18 7:00 PM)[facility] CFGHJ9737-16-95 01:00:00Clear (02/13/18 7:00 PM) [facility]annCARDIAC DURFBGD8006-09-22 22:30:0026[facility]annCARDIAC VJWQNDL9067-93-15 22:30:0081[facility]annCARDIAC COPMVLS4545-12-00 22:30:00 <0.02[facility] HermannCHEM GULAS5924-62-39 22:30:002.1[facility] HermannCHEM MPPFP1167-99-22 22:30:00 Test Item Value Reference Range Interpretation Comments B/C Ratio (test code = B/C Ratio) 10 1 6-25 [facility]annCHEM QDVDT9124-40-12 22:30:004.7[facility] HermannCHEM PANEL 2018-02-13 22:30:00 Test Item Value Reference Range Interpretation Comments A/G Ratio (test code = A/G Ratio) 0.6 1 0.7-1.6 [facility]annCHEM NZXIG0049-72-54 22:30:007.6[facility] HermannCHEM PANEL 2018-02-13 22:30:000.4[facility] HermannCHEM RXKLR5824-96-31 22:30:0013[facility] HermannCHEM HTMDL0327-87-11 22:30:0095[facility] HermannCHEM IAIPE4114-08-18 22:30:0018[facility] HermannCHEM PKRRT3524-57-12 22:30:002.9[facility] BIVJIQXQIR4034-93-55 22:30:000.55[facility] ZmxophhXUSMSVVXRW3279-69-14 22:30:00 48.5[facility]
--- NOTE | 2020-09-11 02:59 | ER ---
Nurse's Notes [facility] Name: Fred Hardy Age: 64 yrs Sex: Male : 1955 Arrival Date: 09/11/2020 Time: 01:07 Bed 13 Private MD: Diagnosis: Presentation: 09/11 01:41 Ebola Screen: No symptoms or risks identified at this time. Risk Assessment: Do you ea want to hurt yourself or someone else? Patient reports no desire to harm self or others. Onset of symptoms was September 11, 2020. 01:41 Acuity: JOSÉ MIGUEL 3 ea 01:42 Chief complaint: Patient states: Reports having sores all over states it has been going ea on for a month. Reports right lower leg swelling that started about 6 weeks. 01:46 Coronavirus screen: At this time, the client does not indicate any symptoms associated ea with coronavirus-19. Initial Sepsis Screen: Does the patient meet any 2 criteria? No. Patient's initial sepsis screen is negative. Does the patient have a suspected source of infection? No. Patient's initial sepsis screen is negative. 01:46 Method Of Arrival: Ambulatory ea Historical: - Allergies: 01:51 IV contrast; jm8 01:51 PENICILLINS; jm8 - Home Meds: 01:51 aspirin 81 mg Oral TbEC 1 tab once daily [Active]; buspirone 10 mg Oral tab 1 tab 2 jm8 times per day [Active]; Chantix Starting Month Box 0.5 mg (11)- 1 mg (42) Oral DsPk [Active]; clopidogrel 75 mg Oral tab 1 tab once daily [Active]; docusate sodium 100 mg Oral cap 1 cap 2 times per day [Active]; ferrous sulfate 325 mg (65 mg iron) Oral TbEC [Active]; Fluoxetine Oral [Active]; simvastatin 20 mg Oral tab 1 tab once daily [Active]; pantoprazole 40 mg Oral TbEC 1 tab once daily [Active]; furosemide 40 mg Oral tab 1 tab once daily [Active]; lisinopril Oral [Active]; lisinopril 20 mg Oral tab 1 tab once daily [Active]; metoprolol tartrate 25 mg Oral tab 1 tab 2 times per day [Active]; potassium chloride 20 mEq Oral TbER 1 tab once daily [Active]; Senokot 8.6 mg Oral tab 2 tabs once daily [Active]; Trazodone Oral [Active]; zolpidem 10 mg Oral tab 1 tab once daily [Active]; - PMHx: 01:51 Hyperlipidemia; Hypertension; jm8 - PSHx: 01:51 None; 8 - Immunization history:: Adult Immunizations up to date. - Social history:: Smoking status: unknown. Screenin:40 Abuse screen: Denies threats or abuse. Nutritional screening: No deficits noted. ea Tuberculosis screening: No symptoms or risk factors identified. Fall Risk None identified. Vital Signs: 01:50 BP 140 / 101; Pulse 90; Resp 16; Temp 98.5; Pulse Ox 99% ; Weight 99.79 kg; Height 6 jm8 ft. (182.88 cm); 01:50 Body Mass Index 29.84 (99.79 kg, 182.88 cm) [facility] ED Course: 01:07 Patient arrived in ED. am4 01:41 Triage completed. ea 01:41 Patient has correct armband on for positive identification. Bed in low position. Call ea light in reach. 01:48 Jaspal Jones MD is Attending Physician. [facility] 01:53 Arm band placed on right wrist. Patient placed in an exam room, on a stretcher, on ea pulse oximetry. Administered Medications: No medications were administered Outcome: 02:58 Patient left the ED. 8 Signatures: Mary Ontiveros, RN Jaspal Gaona ea, MD MD [facility] Keara Sharp [facility] Demetrius Morataya RN RN [facility]
[2020-09-11 03:37] VITALS: BP 140/101; TEMP 98.5; O2SAT 99
== END 2020-09-11 02:58 | disposition left against medical advice (07) ==
LOC: ER 00:58
DX: Z53.21 Procedure and treatment not carried out due to patient leaving prior to being seen by health care provider (principal)
CPT/HCPCS: 99282

== ENCOUNTER 2021-11-20 16:35 | Emergency (ER) | payer OTHER ==
--- OUTSIDE RECORDS SUMMARY | 2021-11-20 16:47 | XMS REPORT | Continuity of Care Document ---
:1955 Author Organization [facility] t Address [address] [place] [place] [address] Care Team Providers Name Role Phone Verito Bailey MD Primary Care Physician [phone] PABLO ALLEN Attending Clinician Unavailable VERITO BAILEY Attending Clinician Unavailable Pablo Allen DO Attending Clinician LAB90 Attending Clinician Unavailable KEYONA SUAZO Attending Clinician Unavailable KEYONA SUAZO Attending Clinician Unavailable Doctor Unassigned, [place] Attending Clinician Unavailable JD HINES Attending Clinician Unavailable Mahesh Gallardo DO Attending Clinician LUCITA CARBAJAL Attending Clinician Unavailable Jd Hines MD Attending Clinician Care, Denny Primary Attending Clinician Unavailable Arsen Vora Attending Clinician ARSEN DIXON Attending Clinician Unavailable Sofia Gatica Attending Clinician [phone] Salome KNUTSON, Edin Ovalles Attending Clinician Gladys Land Attending Clinician Pepito Vasquez Attending Clinician Timothy Kam Attending Clinician Mimi Bernal Attending Clinician Hector Ahuja Attending Clinician Nghia Oneal Attending Clinician Jamie Rush Attending Clinician Brigido Medina Attending Clinician Chi Hastings Attending Clinician Gladys Land Admitting Clinician Timothy Kam Admitting Clinician Mimi Bernal Admitting Clinician Jamie Rush Admitting Clinician Chi Hastings Admitting Clinician Payers Payer Name Policy Type Policy Number Effective Date Expiration Date S ource [employer] MEDICARE 7 [id number] 2021 [id number] GOLD 00:00:00 [facility] 2021 HUMANA 3 [id number] 2021 00:00:00 MED[place]ID OF [place] [id number] 2021 00:00:00 [place] [facility] [id number] 2019 CARE 00:00:00 Problems Condition Condition Condition Status Onset Resolution Last Treating Co mments Source Name Details Category Date Date Treatment Clinician Date Mild major Mild major Disease Active Danette vega depression depression 3 Se ybold 00:00: 00 PTSD PTSD Disease Active Kaela (post-trau (post-trau 3 Se ybold matic matic 00:00: stress stress 00 disorder) disorder) History of History of Disease Active K silvia four four 3-01 Seybold vessel vessel 00:00: coronary coronary 00 artery artery bypass bypass graft graft Primary Primary Disease Active Kaela hypertensi hypertensi 3-01 Se ybold on on 00:00: 00 Chronic Chronic Disease Active Kaela pain due pain due 3- Seybol d to trauma to trauma 00:00: 00 History of History of Disease Active Danette vega TIAs TIAs 3- Seybold 00:00: 00 CHOLECYSTI CHOLECYST Diagnosis Active 2018-08-17 Memoria TIS ITIS 6-13 09:57:00 l Active 00:00: Seymour 08/15/2018 [facility] ABDOMINAL ABDOMINAL Diagnosis Active 2018-08-16 Memoria PAIN PAIN 6-13 02:35:00 l Active 00:00: Celina 08/15/2018 [facility] BLAYNE-SEROMA Diagnosis Active 2018-06-21 Memoria BLAYNE-SEROMA 4-16 10:59:00 l Active 00:00: Celina 06/18/2018 [facility] CHEST PAIN CHEST Diagnosis Active 2018-06-03 Memoria PAIN 3-31 15:02:00 l Active 00:00: Seymour 06/02/2018 [facility] STERNAL STERNAL Diagnosis Active 2018-05-19 Memoria OSTEOMYELI OSTEOMYELI 3-07 06:57:00 l TIS TIS Active 00:00: Arsenio n 05/09/2018 [facility] M86.61 - M86.61 - Diagnosis Active 2018-04-08 Memoria OTHER OTHER 2-01 13:48:00 l CHRONIC CHRONIC 00:01: [place] OSTEOMYELI OSTEOMYELI 00 TIS, S TIS, S Active 04/05/2018 [facility] ACUTE ACUTE Diagnosis Active 2017-032018-03-07 Mem oria EXACERBATI EXACERBATI 2- 22:14:00 l ON OF ON OF 00:00: [place]our CONGESTIVE CONGESTIVE 00 HEART F HEART F Active 02/27/2018 [facility] SHORTNESS Diagnosis Active 2017-032018-02-28 Memoria OF BREATH SHORTNESS 2- 03:46:00 l OF BREATH 00:00: Celina Active 00 02/27/2018 [facility] DIFFICULTY DIFFICULT Diagnosis Active 2017-032018-02-27 Memoria BREATHING Y 04-30 23:09:00 l BREATHING 00:00: [place]our Active 02[facility]27[facility]2018 [facility] SO[facility], SOB, Diagnosis Active 2017-032018-02-28 [facility] oria TACHYCARDI TACHYCARDI 04-16 22:16:00 l A A Active 00:00: [place]ina 02/13/2018 00 [facility] Dyspnea Dyspnea Disease Active 2017-03 Univers 1-12 ity of 00:00: [place] 00 [facility] Branch Other Other Disease Active 2017-03 Univers chest pain chest pain 1-08 it y of 00:00: [place] 00 Medical Branch Cellulitis Cellulitis Disease Active 2017-03 U nivers of chest of chest 1-07 ity of wall wall 00:00: [place] 00 Medical Branch Elevated Elevated Disease Active 2017-03 Unive rs total total 0-10 ity of protein protein 00:00: [place] 00 Medical Branch GELY GELY Disease Active Univers (obstructi (obstructi 9-17 it y of ve sleep ve sleep 00:00: [place] apnea) apnea) 00 Medical Branch Acute on Acute on Disease Active Unive rs chronic chronic 9-17 [place]y of diastolic diastolic [place] congest[place]ive 00 Me dical heart heart Branch failure failure Weakness Weakness Disease Active Unive rs 9-16 ity of 00:00: [place] 00 Medical Branch SOB SOB Disease Active Univers (shortness (shortness 9-10 it y of of breath[place] breath[place] Patent Patent Disease Active Univers foramen foramen 9-06 ity of ovale ovale 00:00: [place] 00 Medical Branch S/P CABG x S/P CABG x Disease Active U nivers 4 4 8-31 ity of 00:00: [place] 00 Medical Branch Coronary Coronary Disease Active Overview: Un jody artery artery 8-30 Added ity of disease of disease of 00:00: automatic [place] council council 00 ally from Medical artery of artery of request [facility] council council for heart with heart with surgery stable stable [id number] angina angina pectoris pectoris Coronary Coronary Disease Active Overview: Un jody artery artery 8-30 Formattin ity of disease of disease of 00:00: g of this [place] council council 00 note Medical artery of artery of might be Br anch council council different heart with heart with from the stable stable original. angina angina Added pectoris pectoris automatic ally from request for surgery [id number] Coronary Coronary Disease Active Overview: Un jody artery artery 8-24 Added ity of disease disease 00:00: automatic [place] involving involving 00 ally from M edical council council request Branch coronary coronary for artery of artery of surgery council council [id number] heart with heart with other form other form of angina of angina pectoris pectoris Coronary Coronary Disease Active Overview: Un joyd artery artery 8-24 Formattin ity of disease disease 00:00: g of this [place] involving involving 00 note Medi tenzin council council might be Branch coronary coronary different artery of artery of from the council council original. heart with heart with Added other form other form automatic of angina of angina ally from pectoris pectoris request for surgery [id number] Umbilical Umbilical Disease Active Overview: Univers hernia hernia 6-05 Formattin ity of without without 00:00: g of this [place] obstructio obstructio 00 note Me dical n and n and might be Branch without without different gangrene gangrene from the original. Added automatic ally from request for surgery [id number] Prediabete Prediabete Disease Active U nivers s s 4-16 ity of 00:00: [place] 00 Medical Branch Obesity Obesity Disease Active Univers (BMI (BMI 4-16 ity of 30.0-34.9) 30.0-34.9) [place] Dizziness Dizziness Disease Active Uni vers 4-10 ity of 00:00: [place] 00 Medical Branch Chest Chest Disease Active Univers tightness tightness 4-10 ity of 00:00: [place] 00 Medical Branch History of History of Disease Active U nivers CVA CVA 4-10 ity of (cerebrova (cerebrova 00:00: [place] scular scular 00 Medical accident) accident) Bran ch Hypertensi Hypertensi Disease Active U nivers on, on, 4-10 ity of unspecifie unspecifie [place] d type d type 00 Medical [place] Hyperlipid Hyperlipid Disease Active 2018-0 U nivers emia, emia, 4-10 ity of unspecifie unspecifie 00:[place] d 00 Medical hyperlipid hyperlipid Br anch emia type emia type Tobacco Tobacco Disease Active Univers use use 4-10 ity of disorder disorder 00:00: [place] 00 Medical Branch Sleep Sleep Disease Active Univers disorder disorder 4-10 ity of breathing breathing [place] 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 (dyspnea (dyspnea 4-10 ity of on on 00:00: [place] exertion) exertion) 00 Medi tenzin Branch CVA CVA Disease Active [facility] (cerebral (cerebral 6-25 [facility] vascular vascular 00:00: Medica l accident) accident) 00 Cent er Essential Essential Disease Active [facility] hypertensi hypertensi 6-25 Trena kes on with on with 00:00: Medical goal blood goal blood 00 Ce nter pressure pressure less than less than 140/90 140/90 Cocaine Cocaine Disease Active [facility] abuse abuse 6[facility]25 [facility] Tobacco Tobacco Disease Active [facility] abuse abuse 6-25 [facility] Left Left Disease Active [facility] hemiparesi hemiparesi 6-24 Trena kes s s 00:00: Medical 00 Center Other Other Problem 2018-10-24 Memor ia nonspecifi nonspecifi 11:25:49 l c abnormal c abnormal He rmann finding of finding of lung field lung field 9 [facility] Infection Infection Problem 2018-10-24 Memoria following following 11:25:49 l a a [place] procedure, procedure, other other surgical surgical site, site, initial initial encounter encounter 10/24/2018 [facility] Localized Localized Problem 2018-10-24 Memoria enlarged enlarged 11:25:49 l lymph lymph [place] nodes nodes 10/24/2018 [facility] Other Other Problem 2018-10-24 Memor ia specified specified 11:25:49 l postproced postproced He rmann ural ural states states 10/24/2018 [facility] Presence Presence Problem 2018-10-24 Memoria of of 11:25:49 l aortocoron aortocoron He rmann juana bypass juana bypass graft graft 10/24/2018 [facility] Fluid Fluid Problem 2018-09-17 Memor ia overload, overload, 12:21:37 l unspecifie unspecifie He rmann d d 09/17/2018 [facility] Erythemato Problem 2018-09-17 M emoria us Erythemato 12:21:37 l condition, us Arsenio freedman unspecifie condition, d unspecifie d 09/17/2018 [facility] Allergy Allergy Problem 2018-09-17 Me moria status to status to 12:21:37 l penicillin penicillin He rmann 9 [facility] Other long Other Problem 2018-09-17 M emoria term care home 12:21:37 l (current) (current) Sotero bledsoe drug drug therapy therapy 09/17/2018 [facility] Family Family Problem 2018-09-17 Kuldeep teto history of history of 12:21:37 l ischemic ischemic Arsenio freedman heart heart disease disease and other and other diseases diseases of the of the 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 09/17/2018 [facility] Shortness Shortness Problem 2018-09-18 Memoria of breath of breath 14:04:56 l 09/18/2018 Arsenio freedman Rajendra,[facility] Unspecifie Unspecifi Problem 2018-09-18 Memoria d severe ed severe 14:04:56 l protein-ca protein-ca He antonio geiger malnutriti malnutriti on on 09/18/2018 [facility] Atelectasi Atelectas Problem 2018-09-18 Memoria s is 14:04:56 l 09/18/2018 Arsenio freedman [facility] Osteomyeli Problem 2018-09-18 M emoria tis, Osteomyeli 14:04:56 l unspecifie Arsenio dumont n d unspecifie d 09/18/2018 [facility] Cellulitis Celluliti Problem 2018-09-18 Memoria of chest s of chest 14:04:56 l wall wall Seymour 09/18/2018 [facility] Acute on Acute on Problem 2018-09-18 Memoria chronic chronic 14:04:56 l combined combined Arsenio freedman systolic systolic (congestiv (congestiv e) and e) and diastolic diastolic (congestiv (congestiv e) heart e) heart failure failure 09/18/2018 [facility] Frequency Frequency Problem 2018-09-18 Memoria of of 14:04:56 l micturitio micturitio He antonio n n 09/18/2018 [facility] 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-18 Memoria rotic erotic 14:04:56 l heart heart Celina disease of disease of council council coronary coronary artery artery without without angina angina pectoris pectoris 09/18/2018 Bradley Drew [facility] Localized Localized Problem 2018-09-18 Memoria edema edema 14:04:56 l 09/18/2018 Arsenio freedman [facility] Hyperlipid Hyperlipi Problem 2018-09-18 Memoria emia, demia, 14:04:56 l unspecifie unspecifie He antonio d d 09/18/2018 [facility] Ischemic Ischemic Problem 2018-09-18 Memoria cardiomyop cardiomyop 14:04:56 l athy athy Seymour 09/18/2018 [facility] Personal Personal Problem 2018-09-18 Memoria history of history of 14:04:56 l nicotine nicotine Arsenio freedman dependence [facility] [place] Radiograph Radiograp Problem 2018-09-18 Memoria ic dye hic dye 14:04:56 l allergy allergy [place] status status 09/18/2018 [facility] [place] Body mass Body mass Problem 2018-09-18 Memoria index index 14:04:56 l (BMI) (BMI) Seymour 27.0-27.9, 27.0-27.9, adult adult 09/18/2018 [facility] Acute Acute Problem 2018-09-10 Kuldeep teto posthemorr posthemorr 14:31:25 l hagic hagic [place] anemia anemia 09/10/2018 [facility] Essential Essential Problem 2018-09-10 Memoria (primary) (primary) 14:31:25 l hypertensi hypertensi Cosme alvarez on on 09/10/2018 [facility] Major Major Problem 2018-09-10 Memor ia depressive depressive 14:31:25 l disorder, disorder, Herm ladi single single episode, episode, unspecifie unspecifie d d 09/10/2018 [facility] Anxiety Anxiety Problem 2018-09-10 Me moria disorder, disorder, 14:31:25 l unspecifie unspecifie He antonio d d 09/10/2018 [facility] Insomnia, Insomnia, Problem 2018-09-10 Memoria unspecifie unspecifie 14:31:25 l d d Seymour 09/10/2018 [facility] Constipati Constipat Problem 2018-09-10 Memoria on, ion, 14:31:25 l unspecifie unspecifie He rmladi d d 09/10/2018 [facility] Coronary Coronary Problem Active 2018-10-24 Memoria arterioscl arterioscl 11:25:49 l erosis erosis [place] (disorder) (disorder) Active Problem 10/24/2018 [facility] ILLNESS, ILLNESS, Diagnosis Active 2018-05-19 Memoria UNSPECIFIE UNSPECIFIE 06:57:00 l D D Active Seymour [facility] POSTPROC POSTPROC Diagnosis Active 2018-06-03 Memoria SEROMA OF SEROMA OF 15:02:00 l SKIN, SKIN, Se[place]our SUBCU SUBCU FOLLOWING FOLLOWING Active [facility] ACUTE ACUTE Diagnosis Active 2018-08-17 Mem oria CHOLECYSTI CHOLECYSTI 09:57:00 l TIS TIS Active Arsenio freedman [facility] HEART HEART Diagnosis Active 2018-03-07 Mem oria FAILURE, FAILURE, 22:14:00 l UNSPECIFIE UNSPECIFIE He antonio Randall Active [facility] History of Past Illness Condition Condition Condition Status Onset Resolution Last Treating Co mments Source Name Details Category Date Date Treatment Clinician Date Other Other Problem 2018-2018-10-24 2018-10-24 M emoria acute acute 2-06 11:25:49 11:25:49 l osteomyeli osteomyeli 06:03: He antonio tis, other tis, other 01 site site 04/10/2018 10/24/2018 [facility] Hypertensi Hypertens Problem 2019-2018-09-18 2018-09-18 Memoria ve heart bryan heart 06-26 14:04:56 14:04:56 l disease disease 05:04: Celina with heart with heart 24 failure failure 06/26/2018 09/18/2018 [facility] Allergies, Adverse Reactions, Alerts Allergy Allergy Status Severity Reaction(s) Onset Inactive Treating Comm ents Source Name Type Date Date Clinician Iodine Propensi Active Itching Kaela ty to 05-03 Seybold adverse 00:00: reaction 00 s Penicill Propensi Active anaphylax Abilio sey ins ty to 05-03 is Seybold adverse 00:00: reaction 00 s IODINE Drug Active Hives 2017-03 Univers AND Class 1-09 ity of IODIDE 00:00: [place] CONTAINI 00 Medical NG Branch PRODUCTS Iodine Propensi Active Hives 2017-03 Hives and Unive rs And ty to 109 whole ity of Iodide adverse 00:00: body rash [place] Containi reaction 00 after Medica l ng s contrast Branch Products for radiograp hic procedure s/ images PENICILL DRUG Active Anaphylaxis 2018-0 Uni vers IN INGREDI 4-10 ity of 00:00: [place] 00 Medical Branch Penicill Propensi Active Anaphylaxis 2018-0 U nivers in ty to 4-10 ity of adverse 00:00: [place] reaction 00 Medical s Branch Penicill Propensi Active Anaphylaxis 2018-0 U nivers in ty to 4-10 ity of adverse 00:00: [place] reaction 00 Medical s Branch penicill penicill Active Memori a ins ins l [place] iodine<s iodine<s Active Memori a up>1</montoya up>1</montoya l p> p> [place] penicill penicill Active Memori a in<sup>1 in<sup>1 l </sup> </sup> [place] Family History Family Member Diagnosis Comments Start Date Stop Date Source Natural mother Hypertension [facility] Natural mother Diabetes [facility] Natural father Diabetes [facility] Natural father Hypertension [facility] Natural father Stroke [facility] Social History Social Habit Start Date Stop Date Quantity Comments Source Exposure to Not sure University of SARS-CoV-2 (event) [facility] History of tobacco Cigarette Smoker [facility] History SDOH Kaela tavera Alcohol Frequency History SDOH Kaela Avila ld Alcohol Std Drinks History DOUGOH Kaela Avila ld Alcohol Binge Tobacco use and 2021-05-03 2021-05-03 Smokeless Kaela Se ybold exposure 00:00:00 00:00:00 tobacco non-user Alcohol Comment 2021-05-03 2021-05-03 rarely Kaela Se ybold 00:00:00 00:00:00 Education 2021-05-03 2021-05-03 15 Kaela Johnson 00:00:00 00:00:00 Cigarettes smoked 2021-05-03 2021-05-03 Kaela Martinfernjessica current (pack per 00:00:00 00:00:00 day) - Reported Cigarette 2021-05-03 2021-05-03 Kaela Johnson pack-years 00:00:00 00:00:00 Social History 2018-08-16 2018-08-16 Sonu mckeon 07:52:22 07:52:22 Alcohol intake 2015-08-28 2015-08-28 Current BETH Ybarra es 00:00:00 00:00:00 non-drinker of Medical Ce nter alcohol (finding) Sex [birth year] At [birth year] B[facility] Tolliver 00:00:00 [facility] Smoking Status Start Date Stop Date Source Current every day B[facility] Barrios [facility] Ex-smoker 2021-05-03 00:00:00 2021-05-03 00:00:00 Kaela echols Medications Ordered Filled Start Stop Current Ordering Indication Dosage Frequency Signature Comments Components Source Medication Medication Date Date Medication? Clinician (SIG) Name Name Lisinopril 2021- No 10mg Take 10 mg Kaela 10 MG oral 3-30 03-30 by mouth Seyb old Tablet 10:39: 00:00 daily 21 :00 Tramadol 2021- Yes [id number] 50mg QD Take 1 Vasile morrisey HCl 50 MG 3-30 tablet (50 Seyb old oral Tablet 00:00: mg total) 00 by mouth daily as needed for pain Lisinopril Yes 10mg Take 10 mg K elsey 10 MG oral 3-01 by mouth Seybo ld Tablet 14:00: daily 07 Escitalopra Yes [id number] 10mg Take 1 Kaela m Oxalate 3-01 tablet (10 Seyb old (Lexapro) 00:00: mg total) 10 MG oral 00 by mouth Tablet daily Aspirin 81 2021-0 Yes [id number] 81mg Take 1 Kaela MG oral 3-01 tablet (81 Seybol d Chewable 00:00: mg total) Tablet 00 by mouth daily Tramadol Yes [id number] 50mg Q24H Take 1 Ke lsey HCl 50 MG 3-01 tablet (50 Seyb old oral Tablet 00:00: mg total) 00 by mouth daily as needed for pain Escitalopra Yes [id number] 10mg Take 1 Kaela m Oxalate 3-01 tablet (10 Seyb old (Lexapro) 00:00: mg total) 10 MG oral 00 by mouth Tablet daily Aspirin 81 Yes [id number] 81mg Take 1 Kaela MG oral 3-01 tablet (81 Seybol d Chewable 00:00: mg total) Tablet 00 by mouth daily Tramadol 2021- No [id number] 50mg QD Take 1 K elsey HCl 50 MG 3-01 03-30 tablet (50 Sey bold oral Tablet 00:00: 00:00 mg total) 00 :00 by mouth daily as needed for pain lisinopriL 2019-03 Yes 10mg Take 10 mg U nivers 10 mg 1-09 by mouth ity of tablet 19:16: daily. [address] lisinopriL 2019-03 Yes 10mg Take 10 mg U nivers 10 mg 1-09 by mouth ity of tablet 19:16: daily. [address] lisinopriL 2019-03 Yes 10mg Take 10 mg U nivers 10 mg 1-09 by mouth ity of tablet 19:16: daily. [address] lisinopriL 2019-03 Yes 10mg Take 10 mg U nivers 10 mg 1-09 by mouth ity of tablet 19:16: daily. [address] lisinopriL 2019-03 Yes 10mg Take 10 mg U nivers 10 mg 1-09 by mouth ity of tablet 19:16: daily. [address] lisinopriL 2019-03 Yes 10mg Take 10 mg U nivers 10 mg 1-09 by mouth ity of tablet 13:16: daily. [address] atorvastati 2019-03 Yes [id number] 40mg Take 1 Univers n 40 mg 1-09 tablet by ity of tablet 00:00: mouth [place] 00 daily. [facility] aspirin 81 2019-03 Yes [id number] 81mg Take 1 Univers mg EC 1-09 tablet by ity of tablet 00:00: mouth [place] 00 daily. [facility] atorvastati 2019- Yes [id number] 40mg Take 1 Univers n 40 mg 1-09 tablet by ity of tablet 00:00: mouth [place] 00 daily. Medical Branch aspirin 81 2019-03 Yes [id number] 81mg Take 1 Univers mg EC 1-09 tablet by ity of tablet 00:00: mouth [place] 00 daily. Medical Branch atorvastati 2019- Yes [id number] 40mg Take 1 Univers n 40 mg 1-09 tablet by ity of tablet 00:00: mouth [place] 00 daily. Medical Branch aspirin 81 2019-03 Yes [id number] 81mg Take 1 Univers mg EC 1-09 tablet by ity of tablet 00:00: mouth [place] 00 daily. Medical Branch atorvastati 2019-03 Yes [id number] 40mg Take 1 Univers n 40 mg 1-09 tablet by ity of tablet 00:00: mouth [place] 00 daily. Medical Branch aspirin 81 2019-03 Yes [id number] 81mg Take 1 Univers mg EC 1-09 tablet by ity of tablet 00:00: mouth [place] 00 daily. Medical Branch atorvastati 2019-03 Yes [id number] 40mg Take 1 Univers n 40 mg 1-09 tablet by ity of tablet 00:00: mouth [place] 00 daily. Medical Branch aspirin 81 2019-03 Yes [id number] 81mg Take 1 Univers mg EC 1-09 tablet by ity of tablet 00:00: mouth [place] 00 daily. Medical Branch atorvastati 2019-03 Yes [id number] 40mg Take 1 Univers n 40 mg 1-09 tablet by ity of tablet 00:00: mouth [place] 00 daily. Medical Branch aspirin 81 2019-03 Yes [id number] 81mg Take 1 Univers mg EC 1-09 tablet by ity of tablet 00:00: mouth [place] 00 daily. Medical Branch metoprolol 2020-0 Yes [id number] 25mg Take 1 U nivers succinate 9-10 tablet by ity o f XL 25 mg 24 00:00: mouth [place] hr tablet 00 daily. Medical Branch traZODone 2020-0 Yes [id number] 50mg Take 1 Un jody 50 mg 9-10 tablet by ity of tablet 00:00: mouth at [place] 00 bedtime. Medical Branch cyclobenzap 2019-0 Yes [id number] 10mg Take 1 Univers rine 10 mg 9-10 tablet by ity of tablet 00:00: mouth 3 (three) Medical times Branch daily as needed for Muscle Spasms. naproxen 2020-0 Yes [id number] 500mg Take 1 U nivers 500 mg 9-10 tablet by ity of tablet 00:00: mouth 2 (two) Medical times Branch daily with meals. buPROPion 2020-0 Yes [id number] 150mg Take 1 U nivers SR 9-10 tablet by ity of (WELLBUTRIN 00:00: mouth 2 Oni as SR) 150 mg 00 (two) Medical SR tablet times Branch daily. metoprolol 2020-0 Yes [id number] 25mg Take 1 U nivers succinate 9-10 tablet by ity o f XL 25 mg 24 00:00: mouth [place] hr tablet 00 daily. Medical Branch traZODone 2020-0 Yes [id number] 50mg Take 1 Un jody 50 mg 9-10 tablet by ity of tablet 00:00: mouth at [place] 00 bedtime. Medical Branch cyclobenzap 2020-0 Yes [id number] 10mg Take 1 Univers rine 10 mg 9-10 tablet by ity of tablet 00:00: mouth 3 (three) Medical times Branch daily as needed for Muscle Spasms. naproxen 2020-0 Yes [id number] 500mg Take 1 U nivers 500 mg 9-10 tablet by ity of tablet 00:00: mouth 2 (two) Medical times Branch daily with meals. buPROPion 2020-0 Yes [id number] 150mg Take 1 U nivers SR 9-10 tablet by ity of (WELLBUTRIN 00:00: mouth 2 Oni as SR) 150 mg 00 (two) Medical SR tablet times Branch daily. metoprolol 2020-0 Yes [id number] 25mg Take 1 U nivers succinate 9-10 tablet by ity o f XL 25 mg 24 00:00: mouth [place] hr tablet 00 daily. Medical Branch traZODone 2020-0 Yes [id number] 50mg Take 1 Un jody 50 mg 9-10 tablet by ity of tablet 00:00: mouth at [place] 00 bedtime. Medical Branch cyclobenzap 2020-0 Yes [id number] 10mg Take 1 [facility] rine 10 mg 9-10 tablet by [facility] of tablet 00:00: mouth 3 (three) Medical times Branch daily as needed for Muscle Spasms. naproxen 2020-0 Yes [id number] 500mg Take 1 [facility] nivers 500 mg 9-10 tablet by ity of tablet 00:00: mouth 2 00 (two) Medical times Branch daily with meals. buPROPion 2020-0 Yes [id number] 150mg Take 1 U nivers SR 9-10 tablet by ity of (WELLBUTRIN 00:00: mouth 2 [place] SR) 150 mg 00 (two) Medical SR tablet times Branch daily. traZODone 2020-0 Yes [id number] 50mg Take 1 [facility] jody 50 mg 9-10 tablet by ity of tablet 00:00: mouth at [place] bedtime. Medical Branch cyclobenzap 2020-0 Yes [id number] 10mg Take 1 [facility] rine 10 mg 9-10 tablet by ity of tablet 00:00: mouth 3 [place] (three) Medical times Branch daily as needed for Muscle Spasms. traZODone 2020-0 Yes [id number] 50mg Take 1 Un jody 50 mg 9-10 tablet by ity of tablet 00:00: mouth at [place] [address] bedtime. Medical Branch cyclobenzap 2020-0 Yes [id number] 10mg Take 1 [facility] rine 10 mg 9-10 tablet by ity of tablet 00:00: mouth 3 [place] (three) Medical times Branch daily as needed for Muscle Spasms. traZODone 2020-0 Yes [id number] 50mg Take 1 Un jody 50 mg 9-10 tablet by ity of tablet 00:00: mouth at [place] bedtime. Medical Branch cyclobenzap 2020-0 Yes [id number] 10mg Take 1 [facility] rine 10 mg 9-10 tablet by ity of tablet 00:00: mouth 3 [place] (three) Medical times Branch daily as needed for Muscle Spasms. traZODone 2020-0 Yes [id number] 50mg Take 1 [facility] j[place] 50 mg 9-10 tablet by ity of tablet 00:00: mouth at [place] bedtime. Medical Branch cyclobenzap 2020-0 Yes [id number] 10mg Take 1 [facility] rine 10 mg 9-10 tablet by ity of tablet 00:00: mouth 3 [place] (three) Medical times Branch daily as needed for Muscle Spasms. traZODone 2020-0 Yes [id number] 50mg Take 1 [facility] j[facility] 50 mg 9-10 tablet by ity of tablet 00:00: mouth at [place] [address] bedtime. Medical Branch cyclobenzap 2020-0 Yes [id number] 10mg Take 1 [facility] rine 10 mg 9-10 tablet by ity of tablet 00:00: mouth 3 (three) Medical times Branch daily as needed for Muscle Spasms. traZODone 2020-0 Yes [id number] 50mg Take 1 [facility] j[place] 50 mg 9-10 tablet by ity of tablet 00:00: mouth at [place] bedtime. Medical Branch cyclobenzap 2020-0 Yes [id number] 10mg Take 1 [facility] rine 10 mg 9-10 tablet by ity of tablet 00:00: mouth 3 (three) Medical times Branch daily as needed for Muscle Spasms. metoprolol 2020-0 Yes [id number] 25mg Take 1 [facility] nivers succinate 9-10 tablet by ity o f XL 25 mg 24 00:00: mouth [place] hr tablet 00 daily. Medical Branch traZODone 2020-0 Yes [id number] 50mg Take 1 [facility] jody 50 mg 9-10 tablet by [facility] of tablet 00:00: mouth at [place] bedtime. Medical Branch cyclobenzap 2019-0 Yes [id number] 10mg Take 1 [facility] rine 10 mg 9-10 tablet by ity of tablet 00:00: mouth 3 (three) Medical times Branch daily as needed for Muscle Spasms. naproxen 2019-0 Yes [id number] 500mg Take 1 [facility] nivers 500 mg 9-10 tablet by ity of tablet 00:00: mouth 2 00 (two) Medical times Branch daily with meals. buPROPion 2020-0 Yes [id number] 150mg Take 1 [facility] nivers SR 9-10 tablet by ity of (WELLBUTRIN 00:00: mouth 2 [place] SR) 150 mg 00 (two) Medical SR tablet times Branch daily. metoprolol 2020-0 Yes [id number] 25mg Take 1 [facility] nivers succinate 9-10 tablet by ity o f XL 25 mg 24 00:00: mouth [place] hr tablet 00 daily. Medical Branch traZODone 2020-0 Yes [id number] 50mg Take 1 [facility] j[facility] 50 mg 9-10 tablet by ity of tablet 00:00: mouth at [place] bedtime. Medical Branch cyclobenzap 2020-0 Yes [id number] 10mg Take 1 [facility] rine 10 mg 9-10 tablet by ity of tablet 00:00: mouth 3 [place] 00 (three) Medical times Branch daily as needed for Muscle Spasms. naproxen 2019-0 Yes [id number] 500mg Take 1 [facility] nivers 500 mg 9-10 tablet by ity of tablet 00:00: mouth 2 [place] 00 (two) Medical times Branch daily with meals. buPROPion 2019-0 Yes [id number] 150mg Take 1 [facility] nivers SR 9-10 tablet by ity of (WELLBUTRIN 00:00: mouth 2 [place] SR) 150 mg 00 (two) Medical SR tablet times Branch daily. metoprolol 2019- No [id number] 25mg Take 1 [facility] succinate 9-10 11-09 tablet by it[facility] of XL 25 mg 24 00:00: 00:00 mouth [place] hr tablet 00 :00 daily. [facility] naproxen 2019- No [id number] 500mg Take 1 [facility] 500 mg 9-10 11-09 tablet by ity of tablet 00:00: 00:00 mouth 2 [place] 00 :00 (two) Medical times Branch daily with meals. buPROPion 2019-2019- No [id number] 150mg Take 1 [facility] SR 9-10 11-09 tablet by ity of (WELLBUTRIN 00:00: 00:00 mouth 2 [place] SR) 150 mg 00 :00 (two) Medical SR tablet times Branch daily. metoprolol 2019-2019- No [id number] 25mg Take 1 [facility] succinate 9-10 11-09 tablet by ity of XL 25 mg 24 00:00: 00:00 mouth [place] hr tablet 00 :00 daily. [facility] naproxen 2019- 2020- No [id number] 500mg Take 1 [facility] 500 mg 9-10 11-09 tablet by ity of tablet 00:00: 00:00 mouth 2 [place] 00 :00 (two) Medical times Branch daily with meals. buPROPion 2019-0 2020- No [id number] 150mg Take 1 [facility] SR 9-10 11-09 tablet by ity of (WELLBUTRIN 00:00: 00:00 mouth 2 [place] SR) 150 mg 00 :00 (two) Medical SR tablet times Branch daily. metoprolol 2019- 2020- No [id number] 25mg Take 1 [facility] succinate 9-10 11-09 tablet by ity of XL 25 mg 24 00:00: 00:00 mouth [place] hr tablet 00 :00 daily. [facility] naproxen 2020- No [id number] 500mg Take 1 [facility] 500 mg -12 13- tablet by ity of tablet 00:00: 00:00 mouth 2 [place] 00 :00 (two) Medical times Branch daily with meals. buPROPion 2020- No [id number] 150mg Take 1 [facility] SR -12 13- tablet by ity of (WELLBUTRIN 00:00: 00:00 mouth 2 [place] SR) 150 mg 00 :00 (two) Medical SR tablet times Branch daily. TRAZODONE 2018-03 Yes [id number] TAKE THREE [facility] 50 mg 1-18 TABLETS BY ity of tablet 00:00: MOUTH AT [place] [address] BEDTIME Medical Branch TRAZODONE 2018-03 Yes [id number] TAKE THREE [facility] 50 mg 1-18 TABLETS BY ity of tablet 00:00: MOUTH AT [place] 00 BEDTIME Medical Branch TRAZODONE 2018-03 2020- No [id number] TAKE THREE [facility] 50 mg 1-18 09-10 TABLETS BY ity of tablet 00:00: 00:00 MOUTH AT [place] 00 :00 BEDTIME Medical Branch TRAZODONE 2018-03 2020- No [id number] TAKE THREE [facility] 50 mg 1-18 09-10 TABLETS BY ity of tablet 00:00: 00:00 MOUTH AT [place] 00 :00 BEDTIME Medical Branch metoprolol Yes 25mg Take 1 Unive rs succinate 7-02 tablet by ity o f XL 25 mg 24 00:00: mouth [place] hr tablet 00 daily. Medical Branch metoprolol Yes 25mg Take 1 Unive rs succinate 7-02 tablet by ity o f XL 25 mg 24 00:00: mouth [place] hr tablet 00 daily. Medical Branch metoprolol 2020- No 25mg Take 1 [facility] ers succinate 7-02 09-10 tablet by ity of XL 25 mg 24 00:00: 00:00 mouth [place] hr tablet 00 :00 daily. [facility] metoprolol 2020- No 25mg Take 1 [facility] ers succinate 7-02 09-10 tablet by ity of XL 25 mg 24 00:00: 00:00 mouth [place] hr tablet 00 :00 daily. [facility] Docusate No Notes: Memoria 6-14 (Same as: l 14:00: Coleen) [place] 00 (Do Not Crush) gabapentin No Notes: Memor ia 300 MG Oral 14 (Same as: l Capsule 13:00: Neurontin) Herm ladi Tylenol No Notes: Max Kuldeep teto 6-14 acetaminop l 11:00: hen 4000 [place] 00 mg/day (4 gm/day). (Same as: Tylenol Extra Strength) Lovenox No Notes: Memoria -14 (Same as: l 09:00: Lovenox) [place] Isolyte S No Notes: Memori a PH 7.4 14 (Same as: l 1,000 mL 08:15: Isolyte S Herm ladi 00 PH 7.4) tramadol No Notes: Not Mem oria hydrochlori 08-16 to exceed l de 50 MG 08:14: 400mg/day. Her fernandes Oral Tablet 00 (Same As: Ultram) Ondansetron No Notes: Kuldeep teto 14 (Same as: l 08:13: Zofran) [place] 00 MEDICATION WASTE Product Size: 4 mg Product Wasted: _0__ mg Glucagon No 1 mg, Memoria 08-16 Route: IM, l 08:13: Drug form: [place] PDR/INJ, PRN, Dosing Weight 81.818, kg, PRN Blood Glucose Results, Start date: 08/16/18 3:13:00 CDT, 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, Stop date: 09/15/18 3:12:00 CDT Dextrose No 12.5 gm, Memor ia 50% Syringe 08-16 25 mL, l 08:13: Route: [place] IVP, Drug Form: INJ, Dosing Weight 81.818, kg, PRN, PRN Blood Glucose Results, Start date: 08/16/18 3:13:00 CDT, 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, Stop date: 09/15/18 3:12:00 CDT Zofran No 4 mg, Memoria 08-16 Route: l 07:11: IVP, Drug form: INJ, ONCE, Dosing Weight 81.818, kg, Priority: STAT, Start date: 08/16/18 2:11:00 CDT, Stop date: 08/16/18 2:11:00 CDT Morphine No 4 mg, Memoria 6-14 Route: l 07:11: IVP, ONCE, Dosing Weight 81.818, kg, Priority: STAT, Start date: 08/16/18 2:11:00 CDT, Stop date: 08/16/18 2:11:00 CDT Doxycycline Yes Notes: Kuldeep teto 06-21 (Same as: l 18:35: Vibramycin [place] 00 ) Trazodone No Notes: Memori a Hydrochlori 06-04 (Same As: l de 50 MG 02:00: Desyrel) Marcia nn Oral Tablet atorvastati No Notes: Kuldeep teto n 06-04 (Same as: l 02:00: Lipitor) [place] 00 doxycycline Yes 100 mg = 1 Memoria hyclate 100 06-03 tab, PO, l MG Oral 20:58: Q12H, X 14 Herm ladi Tablet 00 day, # 28 tab, 0 Refill(s), Pharmacy: [place] [id number] meropenem No Notes: Memori a 06-03 Same as l 18:00: Merrem [place] 00 MEDICATION WASTE Product Size: 500 mg Product Wasted: ___ mg tramadol No Notes: Not Mem oria hydrochlori 06-03 to exceed l de 50 MG 17:30: 400mg/day. Her fernandes Oral Tablet (Same As: Ultram) Doxycycline No Notes: Kuldeep teto 06-03 (Same as: l 15:10: Vibramycin [place] ) Aspirin 81 No Notes: Do Me moria MG Enteric 06-03 not crush l Coated 14:00: or chew. [place] Tablet (Same As: Ecotrin) Midodrine No Notes: Memori a 06-03 (Same l 14:00: as:Proamat [place] ine) metoprolol No Notes: Memor ia extended 06-03 (Same as: l release 14:00: Toprol XL) Herm ladi Do Not Crush Lisinopril No Notes: Memor ia 06-03 (Same as: l 14:00: Prinivil, [place] 00 Zestril) duloxetine No Notes: Memor ia - (Same as: l 14:00: Cymbalta) [place] (Do Not Crush) Docusate No Notes: Memoria Sodium 100 06-03 (Same as: l MG Oral 14:00: Colace) [place] Capsule 00 (Do Not [Colace] Crush) clopidogrel No Notes: Kuldeep teto 06-03 (Same As: l 14:00: Plavix) [place] 00 heparin No Notes: Memoria 06-03 porcine l 14:00: heparin Buspirone No Notes: Memori a 06-03 (Same As: l 14:00: BuSpar) tramadol No Notes: Not Mem oria hydrochlori 06-03 to exceed l de 50 MG 14:00: 400mg/day. Her fernandes Oral Tablet 00 (Same As: Ultram) tramadol No Notes: Not Mem oria hydrochlori 06-03 to exceed l de 50 MG 04:45: 400mg/day. Her fernandes Oral Tablet 00 (Same As: Ultram) Hydralazine No Notes: Kuldeep teto 06-03 (Same as: l 02:32: Apresoline ) Push over 5 minutes Trazodone No Notes: Memori a 06-03 (Same As: l 02:19: Desyrel) Vancomycin No 2001 mg: Me moria 06-03 infuse l 00:00: over 2.5 [place] hours For adult patients only: Round to nearest 250 mg per Medical Staff approval MEDICATION WASTE Product Size: 1000 mg Product Wasted: ___ mg cefepime No Notes: Memoria 4 (Same As: l 00:00: Maxipime) MEDICATION WASTE Product Size: 1000 mg Product Wasted: ___ mg Docusate Yes 100 mg = 1 Mem oria Sodium 100 3-31 cap, PO, l MG Oral 23:50: Daily [place] Capsule 00 [Colace] Aspirin 81 Yes 81 mg = 1 Me moria MG Enteric 3-31 tab, PO, l Coated 23:49: Daily [place] Tablet 00 midodrine Yes 2.5 mg = 1 Me moria 2.5 mg oral 3-31 tab, PO, l tablet 23:49: Daily [place] Glucagon No 1 mg, Memoria 06-02 Route: IM, l 22:10: Drug form: [place] 00 PDR/INJ, PRN, Dosing Weight 96.8, kg, [...] 06-02 not exceed l 22:10: 4 gm/day. [place] 00 (Same as: Tylenol) Melatonin No Notes: Memori a - (Same as: l 22:10: Melatonin) Ondansetron No Notes: Kuldeep teto 31 (Same as: l 22:10: Zofran) MEDICATION WASTE [...] PO, l ER 25 mg 22:06: Daily [place] oral 00 tablet, extended release DULoxetine Yes 30 mg = 1 Me moria 30 mg oral 3-31 cap, PO, l delayed 22:06: Daily [place] release 00 capsule lisinopril Yes 2.5 mg = Mem oria 5 mg oral 19 0.5 tab, l tablet 15:58: PO, Daily, # 30 tab, 0 Refill(s), Pharmacy: [place] [id number] Vancomycin No 2000 mg: Me moria 3-18 infuse l 23:00: over 2.5 hours For adult patients only: Round to nearest 250 mg per Medical Staff approval MEDICATION WASTE Product Size: 1000 mg Product Wasted: ___ mg Fleet Enema No 133 mL, Mem oria 3-17 Route: OH, l 22:12: Drug Form: CARLOZ, Dosing Weight [...] ONCE, Stop date: 05/17/18 11:39:00 CDT morphine 2018- No Route: IV, Mem oria Sulfate 3-15 Drug form: l (ANES) 16:39: INJ, ONCE, Marcia nn Stop date: 05/17/18 11:39:00 CDT ondansetron No [...] ONCE, Stop date: 05/17/18 10:48:00 CDT dexamethaso 2018-0 No Route: IV, Memoria ne (ANES) 3-15 Drug form: l 15:48: INJ, ONCE, Stop date: 05/17/18 10:48:00 CDT rocuronium 2018-0 No Route: IV, M emoria (ANES) 3-15 Drug form: l 15:48: INJ, ONCE, Stop date: 05/17/18 10:48:00 CDT propofol 2019-0 No Route: IV, Mem oria (ANES) 3-15 Drug form: l 15:48: INJ, ONCE, Stop date: 05/17/18 10:48:00 CDT succinylcho 2019-0 No Route: IV, Memoria line (ANES) 3-15 Drug form: l 15:43: INJ, ONCE, Stop date: 05/17/18 10:43:00 CDT midazolam 2019-0 No Route: IV, Me moria (ANES) 3-15 Drug form: l 15:43: SOLN, 00 ONCE, Stop date: 05/17/18 10:43:00 CDT Flumazenil 2019-0 No Notes: Memor ia 3-15 (Same as: l 15:35: Romazicon) Morphine 2019-0 No Notes: Memoria 3-15 (Same l 15:35: as:MORPhin e Sulfate) Hydromorpho 2019-0 No Notes: Kuldeep teto ne 3-15 Same as l 15:35: Dilaudid [place] 00 Acetaminoph No Notes: Max Memoria en 3-15 acetaminop l 15:35: hen 4000 [place] mg/day (4 gm/day). (Same as: Tylenol Extra Strength) Promethazin No Notes: Do M emoria e 3-15 not give l 15:35: IV push. [place] 00 (Same as: Phenergan) Ondansetron No Notes: Kuldeep teto 3-15 (Same as: l 15:35: Zofran) MEDICATION WASTE Product Size: 4 mg Product Wasted: ___ mg Meperidine No Notes: Memor ia 3-15 (Same as: l 15:35: Demerol) "Use Precaution in Elderly, Seizure disorders, and Renal impairment " Glycopyrrol No Notes: Kuldeep tteo ate 3-15 (Same as: l 15:35: Robinul) Naloxone No Notes: Memoria 3-15 Same as l 15:35: Narcan [place] 00 acetaminoph No Route: IV, Memoria en (ANES) 3-15 Drug form: l 10 mg 15:17: INJ, Start Arsenio n date: 05/17/18 10:17:00 CDT, Stop date: 05/17/18 11:17:00 CDT phenylephri No Route: IV, Memoria ne (ANES) 3-15 Drug form: l 100 14:50: INJ, Start [place] microgram 00 date: 05/17/18 9:50:00 CDT, Stop date: 05/17/18 10:50:00 CDT Lactated No Route: IV, Mem oria Ringers 3-15 Total l Injection 14:30: Volume: Marcia nn IV (ANES) 00 1,000, 1000 mL Start date: 05/17/18 9:30:00 CDT, Stop date: 05/17/18 10:30:00 CDT Lisinopril No Notes: Memor ia 3-15 (Same as: l 14:00: Prinivil, [place] 00 Zestril) Vancomycin No 2001 mg: Me moria 3-15 infuse l 06:00: over 2.5 hours For adult patients only: Round to nearest 250 mg per Medical Staff approval MEDICATION WASTE Product Size: 1000 mg Product Wasted: ___ mg alteplase 2 No Notes: Kuldeep teto mg 3-14 "Syringe l injection 22:49: for catheter clearance or interventi onal radiology use. Reconstitu te each vial of Cathflo Activase with 2.2 ml Sterile Water resulting in a 1 mg/ml solution. (Same as: Activase) MEDICATION WASTE Product Size: 2 mg Product Wasted: ___ mg alteplase 2 No Notes: Kuldeep teto mg 3-14 "Syringe l injection 22:48: for catheter clearance or interventi onal radiology use. [...] Memoria 3-12 (Same As: l 20:00: Maxipime) [place] 00 MEDICATION WASTE Product Size: 1000 mg Product Wasted: _0__ mg Fentanyl No Notes: Memoria 3-12 (Same as: l 16:56: Sublimaze) [place] 00 Preservati ve free. lidocaine No Notes: Memori a 3-12 Preservati l 05:00: ve free. [place] (Same as: Xylocaine MPF) Sodium No 250 mL, Memoria Chloride -12 Rate: To l 0.9% 02:42: prime line [place] (titrate) 00 and flush 250 mL remaining [...] Notes: Memoria 3-11 (Same l 22:48: as:MORPhin [place] 00 e Sulfate) albumin No 250 mL, Memoria human 5% 05-13 Route: IV, l intravenous 17:52: Dosing Herm ladi solution 00 Weight 80.909, kg, ONCE, NOW, Start date: 05/13/18 12:52:00 CDT, Stop date: 05/13/18 12:52:00 CDT, Indication : Other see comments morphine No Route: IV, Mem oria Sulfate 05-13 Drug form: l (ANES) 15:36: INJ, ONCE, Marcia nn 00 Stop date: 05/13/18 10:36:00 CDT sugammadex No Route: IV, M emoria (ANES) 3-11 Drug form: l 14:05: SOLN, [place] 00 ONCE, Stop date: 05/13/18 9:05:00 CDT acetaminoph No Route: IV, Memoria en (ANES) 3- Drug form: l 14:05: INJ, ONCE, [place] 00 Stop date: 05/13/18 9:05:00 CDT Albuterol No Notes: SEE Me moria 0.83 MG/ML 3- RT l Inhalant 13:39: DOCUMENTAT Her fernandes Solution 00 ION (Same as: Proventil) Hydralazine No Notes: Kuldeep teto 3-11 (Same as: l 13:39: Apresoline ) Push over 5 minutes Hydromorpho No Notes: Kuldeep teto ne 3- Same as l 13:39: Dilaudid Morphine No Notes: Memoria 3-11 (Same l 13:39: as:MORPhin e Sulfate) Naloxone No Notes: Memoria 3-11 Same as l 13:39: Narcan Flumazenil No Notes: Memor ia - (Same as: l 13:39: Romazicon) Dexamethaso No Notes: Kuldeep teto ne 3- Concentrat l 13:39: ion: 4mg/ml Ondansetron No Notes: Kudleep teto 3-11 (Same as: l 13:39: Zofran) MEDICATION WASTE Product Size: 4 mg Product Wasted: ___ mg esmolol No Route: IV, Kuldeep teto (ANES) 3-11 Drug form: l 13:38: INJ, ONCE, Stop date: 05/13/18 8:38:00 CDT fentaNYL No Route: IV, Mem oria (ANES) 3-11 Drug form: l 13:28: INJ, ONCE, [place] Stop date: 05/13/18 8:28:00 CDT midazolam No Route: IV, Me moria (ANES) 3-11 Drug form: l 13:23: SOLN, [place] 00 ONCE, Stop date: 05/13/18 8:23:00 CDT rocuronium 2018-0 No Route: IV, [place] emoria (ANES) 05-13 Drug form: l 13:23: [...] 05/13/18 8:09:00 CDT Vancomycin No 2001 mg: Me moria 3- infuse l 20:00: over 2.5 hours heparin 2018-0 No Notes: Memoria 3-09 porcine l 15:00: heparin Acetaminoph No Notes: Kuldeep teto en 325 MG / 3- (Same as: l Hydrocodone 01:40: [place] Marcia nn Bitartrate 00 325/5) Do 5 MG Oral not exceed Tablet 4gm/day of [[place] acetaminop 5/325] hen. 24 HR 0 No 25 mg, 1 Memoria Metoprolol 3-08 tab, l Tartrate 25 15:00: Route: PO, [place] MG Extended Drug form: Release ERTAB, Tablet Daily, [Toprol] Start date: 05/10/18 9:00:00 OVERHEAD CLEANER, 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, Stop date: 06/08/18 9:00:00 CDT ferrous No Notes: Memoria sulfate 3-08 Dose=___mg l 15:00: elemental iron duloxetine No 30 mg, 1 Mem oria 3-08 cap, l 15:00: Route: PO, Drug form: DRC, Daily, Dosing Weight 80.909, kg, Start date: 05/10/18 9:00:00 OVERHEAD CLEANER, 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, Stop date: 06/08/18 9:00:00 CDT clopidogrel No Notes: Kuldeep teto 3-08 (Same As: l 15:00: Plavix) Lisinopril No Notes: Memor ia 3-08 (Same as: l 15:00: Prinivil, Zestril) Saline No 10 mL, Memoria Flush 0.9% 08 Route: l 06:00: IVP, Drug Form: INJ, Dosing Weight 80.909, kg, Q8H, Start date: 05/10/18 0:00:00 OVERHEAD CLEANER, 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, Stop date: 06/08/18 16:00:00 [...] PRN Line Flush, Start date: 05/09/18 17:54:00 OVERHEAD CLEANER, 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, Stop date: 06/08/18 18:53:00 CDT cefepime 2019-0 No Notes: Memoria 3-07 (Same As: l 23:00: Maxipime) [place] MEDICATION WASTE Product Size: 1000 mg Product Wasted: ___ mg Buspirone No Notes: Memori a 3-07 (Same As: l 23:00: BuSpar) [place] Alprazolam No Notes: Memor ia 0.25 MG 05-09 With food l Oral Tablet 22:24: or milk Her fernandes [Xanax] 00 (Same as: Xanax) BD Normal No Notes: Memori a Saline 05-09 (Same as: l Flush 22:00: BD [place] 00 Posiflush) Vancomycin No Notes: For [place] cleaning 05-09 adult l 22:00: patients [place] 00 only: Round to nearest 250 mg per Medical Staff approval MEDICATION WASTE Product Size: 1000 mg Product Wasted: ___ mg Sodium No 25 mL, Memoria Chloride 05-09 Route: IV, l 0.9% IV 19:59: Start [place] date: 05/09/18 13:59:00 OVERHEAD CLEANER, 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, Stop date: 06/08/18 14:58:00 CDT, PRN Line Flush BD Normal No Notes: Memori a Saline 05-09 (Same as: l Flush 19:59: BD [place] 00 Posiflush) BD Normal No Notes: Memori a Saline 05-09 (Same as: l Flush 19:58: BD Posiflush) tramadol Yes 100 mg = 2 Mem oria hydrochlori -07 tab, PO, l de 50 MG 19:54: Bedtime, 0 Her fernandes Oral Tablet 00 Refill(s) Cathflo No 1 mg, 1 Memoria Activase 2 3-07 mL, Route: l mg 19:28: INJ, Drug [place] injection form: SOLN, ONCE, Dosing Weight 80.909, kg, Start date: 05/09/18 13:28:00 OVERHEAD CLEANER, Stop date: 05/09/18 13:28:00 OVERHEAD CLEANER, [place] CVAD < 7 [place] alteplase 2 No 1 mg, 1 Mem oria mg 3-07 mL, Route: l injection 19:28: INJ, Drug Her fernandes form: SOLN, ONCE, Dosing Weight 80.909, kg, Start date: 05/09/18 13:28:00 OVERHEAD CLEANER, Stop date: 05/09/18 13:28:00 OVERHEAD CLEANER, [place] CVAD < 7 [place] Morphine No Notes: Memoria 05-09 (Same l 19:09: as:MORPhin [place] 00 e Sulfate) Acetaminoph No Notes: Do M emoria en 05-09 not exceed l 19:09: 4 gm/day. [place] (Same as: Tylenol) Ondansetron No Notes: Kuldeep teto 05-09 (Same as: l 19:09: Zofran [place] 00 ODT) Glucagon No 1 mg, Memoria 05-09 Route: IM, l 19:09: Drug form: [place] PDR/INJ, PRN, Dosing Weight 80.909, kg, PRN Blood Glucose Results, Start date: 05/09/18 13:09:00 OVERHEAD CLEANER, 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, Stop date: 06/08/18 14:08:00 CDT Dextrose No 12.5 gm, Memor ia 50% Syringe 05-09 25 mL, l 19:09: Route: [place] 00 IVP, Drug Form: INJ, Dosing Weight 80.909, kg, PRN, PRN Blood Glucose Results, Start date: 05/09/18 13:09:00 OVERHEAD CLEANER, 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, Stop date: 06/08/18 14:08:00 CDT TRAMADOL 50 2019- Yes [id number] TAKE ONE [facility] mg tablet 3-07 TABLET BY ity o f 00:00: MOUTH FOUR 00 TIMES A Medical DAY Branch TRAMADOL 50 2018- Yes [id number] TAKE ONE [facility] mg tablet 3-07 TABLET BY ity o f 00:00: MOUTH FOUR 00 TIMES A Medical DAY Branch TRAMADOL 50 2020- No [id number] TAKE ONE [facility] mg tablet -09 10- TABLET BY ity of 00:00: 00:00 MOUTH FOUR [place] 00 :00 TIMES A Medical DAY Branch TRAMADOL 50 2018- 2020- No [id number] TAKE ONE [facility] mg tablet 3-07 09-10 TABLET BY ity of 00:00: 00:00 MOUTH FOUR [place] 00 :00 TIMES A Medical DAY Branch midodrine Yes 2.5mg Take 1 [facility] rs 2.5 mg 2-08 tablet by ity of tablet 00:00: mouth 2 [place] 00 (two) Medical times Branch daily. midodrine Yes 2.5mg Take 1 [facility] rs 2.5 mg 2-08 tablet by ity of tablet 00:00: mouth 2 00 (two) Medical times Branch daily. midodrine 2019- No 2.5mg Take 1 [facility] ers 2.5 mg 2-08 09-10 tablet by ity of tablet 00:00: 00:00 mouth 2 [place] 00 :00 (two) Medical times Branch daily. midodrine 2019- No 2.5mg Take 1 Univ ers 2.5 mg 2-08 09-10 tablet by ity of tablet 00:00: 00:00 mouth 2 [place] 00 :00 (two) Medical times Branch daily. Lasix 2017-03 No Notes: Memoria 2-29 (Same as: l 15:00: Lasix) July cause GI upset. Give with food or milk. Potassium 2017-03 No Notes: Memori a Chloride 2-28 (Same as: l 18:32: K-Dur 20) "Do Not Crush" Give with food and full glass of water For patients unable to swallow tablet, dissolve in one half glass of water. Allow about 2 minutes for the tablets to disintegra te. Stir before giving to prepare slurry and administer . Please exclude Patient s with feeding tube less than 14 [place] (Dobhoff, J-tube etc) and pediatric and patients. Rocephin 1 2017-03 No 2 gm, IV, Me moria g injection 2-28 Q24H, X 14 l 18:26: day, # 14 00 ea, 0 Refill(s), other Furosemide 2017-03 No 20 mg = 1 Me moria 20 MG Oral 2-28 tab, PO, l Tablet 18:26: Daily, # 00 30 tab, 0 Refill(s), Pharmacy: [place] [id number] Potassium 2017-03 No Notes: Memori a Chloride 2-28 (Same as: l 16:19: K-Dur 20) "Do Not Crush" Give with food and full glass of water For patients unable to swallow tablet, dissolve in one half glass of water. Allow about 2 minutes for the tablets to disintegra te. Stir before giving to prepare slurry and administer . Please exclude Patient s with feeding tube less than 14 [place] (Dobhoff, J-tube etc) and pediatric and patients. multivitami 2017-03 No Notes: Kuldeep teto n with 05-02 (Same l minerals 15:00: as:Thera-M Her fernandes 00 , Theragran- M) WASTE: F/P - Black; E - Municipal Trash Bin Give with food. atorvastati 2017-03 No Notes: Kuldeep teto n - (Same as: l 03:00: Lipitor) Trazodone 2017-03 No Notes: Memori a Hydrochlori 05-02 (Same As: l de 50 MG 03:00: Desyrel) Marcia Oral Tablet Mirtazapine 2017-03 No Notes: Kuldeep teto 05-02 (Same l 03:00: as:Remeron Celina 00 ) Beneprotein 2017-03 No Notes: Kuldeep teto 7 gm pkt 05-01 (Same as: l 22:30: Beneprotei n) Ceftriaxone 2017-03 No Notes: Kuldeep teto - (Same As: l 19:00: Rocephin). Use with 100 mL NS and infuse over 30 min MEDICATION WASTE Product Size: 2000 mg Product Wasted: ___ mg ferrous 2017-03 No Notes: Memoria sulfate 05-01 Give with l 15:24: food. iron elemental [id number] as ferrous sulfate Dose=___mg elemental iron duloxetine 2017-03 No Notes: Memor ia 2- (Same as: l 15:24: Cymbalta) (Do Not Crush) clopidogrel 2017-03 No Notes: Kuldeep teto - (Same As: l 15:24: Plavix) Buspirone 2017-03 No Notes: Memori a - (Same As: l 15:24: BuSpar) [place] 00 Vancomycin 2017-03 No 2001 mg: Me moria 2- infuse l 15:24: over 2.5 [place] 00 hours metoprolol 2017-03 No Notes: Memor ia extended 2-27 (Same as: l release 15:24: Toprol XL) Do Not Crush Lisinopril 2017-03 No Notes: Memor ia 2-27 (Same as: l 15:24: Prinivil, Zestril) Enoxaparin 2017-03 No Notes: Memor ia 2-27 (Same as: l 15:00: Lovenox) Saline 2017-03 No Notes: Memoria Flush 0.9% 2-27 (Same as: l 15:00: BD Posiflush) Furosemide 2017-03 No Notes: Memor ia 2-27 (Same as: l 15:00: Lasix) MEDICATION WASTE Product Size: 40 mg Product Wasted: ___ mg Dexamethaso 2017-03 No Notes: Kuldeep teto ne 2-27 Concentrat l 09:59: ion: [place] 00 4mg/ml Benadryl 2017-03 No Notes: Memoria [...] kg, Priority: STAT, Start date: 02/28/18 0:45:00 OVERHEAD CLE[employer]ER, 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/28/18 0:45:00 OVERHEAD CLE[employer]ER tramadol 2017-03 No 50 mg = 1 Kuldeep teto hydrochlori 2-20 tab, PO, l de 50 MG 18:02: Q8H, PRN Marcia nn Oral Tablet 00 Pain, X 3 day, # 7 tab, 0 Refill(s) vancomycin 2017-03 No 1.25 gm = Me moria 1.25 g/250 2-20 250 mL, l mL-NaCl 17:58: IVPB, [place] 0.9% 00 Q12H, 0 intravenous Refill(s) solution [...] moria 2-20 infuse l 03:00: over 2.5 [place] 00 hours [place] Enema 2017-03 No 12 years, Memoria 2-19 Pediatric l 17:47: Dosing [place] Lisinopril 2017-03 No Notes: Memor ia 2-19 (Same as: l 15:18: Prinivil, [place] 00 Zestril) Sodium 2017-03 No 25 mL, Memoria Chloride 2-18 Route: IV, l 0.9% IV 14:04: Start [place] date: 02/19/18 8:04:00 OVERHEAD CLE[employer]ER, 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, Stop date: 03/21/18 8:03:00 OVERHEAD CLEANER, PRN Line Flush BD Normal 2017-03 No Notes: Memori a Saline 2-18 (Same as: l Flush 14:04: BD [place] 00 Posiflush) Zinc 2017-03 No Notes: Memoria Sulfate 2-17 (Zinc l 19:30: sulfate [place] capsule) - 220 mg Zinc sulfate = 50 mg elemental zinc Same as Zinc Sulfate Beneprotein 2017-03 No Notes: Kuldeep teto 7 gm pkt 2-17 (Same as: l 18:38: Beneprotei [place] n) ferrous 2017-03 No Notes: Memoria sulfate 2-17 Give with l 16:37: food. iron elemental 89mt=249bs as ferrous sulfate Dose=___mg elemental iron Docusate 2017-03 No Notes: Memoria Sodium 100 2-17 (Same as: l MG Oral 03:00: Colace) [place] Capsule 00 (Do Not Crush) Miralax 2017-03 No Notes: Memoria 2-16 Dissolve l 15:49: in 8 oz of [place] 00 water or juice. (Same as: Miralax) Vancomycin 2017-03 No 2001 mg: Me moria 2-15 infuse l 21:00: over 2.5 [place] 00 hours Saline 2017-03 No Notes: Memoria Flush 0.9% 2-14 (Same as: l 22:00: BD [place] 00 Posiflush) Saline 2017-03 No Notes: [facility]oria Flush 0.9% 2-14 (Same as: l 17:44: BD [place] 00 Posiflush) morphine 2017-03 No Notes: Memoria Sulfate [...] mg/mL 2-14 (Same l preservativ 13:38: as:MORPhin [place] e-free 00 e Sulfate) injectable solution Mirtazapine 2017-03 No Notes: Kuldeep teto 2-14 (Same l 03:00: as:Remeron [place] 00 ) Saline 2017-03 No Notes: Memoria Flush 0.9% 2-13 (Same as: l 23:46: BD [place] 00 Posiflush) Sodium 2017-03 No 1,000 mL, Memori a Chloride 2-13 Rate: 100 l 0.45% IV 23:46: ml/hr, [place] 1,000 mL 00 Infuse over: 10 hr, Route: IV, Dosing Weight 85 kg, Total Volume: 1,000, Start date: 02/14/18 17:46:00 OVERHEAD CLE[employer]ER, 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, Stop date: 03/16/18 17:45:00 OVERHEAD CLEANER, 2.1, m2 Dulcolax 2017-03 No Notes: Memoria Laxative 2-13 (Same As: l 23:46: Dulcolax, [place] 00 Correctol) (Do Not Crush) "Do Not Crush" Ondansetron 2017-03 No Notes: Kuldeep teto 2-13 (Same as: l 23:46: Zofran ODT) Diphenhydra 2017-03 No Notes: Kuldeep teto mine 2-13 (Same as: l 23:46: Benadryl) Acetaminoph 2017-03 No Notes: Max Memoria en 2-13 acetaminop l 23:46: hen = 4000 [place] mg/day (4 gm/day). (Same as: Tylenol) Acetaminoph 2017-03 No Notes: Kuldeep teto en 325 MG / 2-13 (Same as: l Hydrocodone 23:46: [place] Marcia nn Bitartrate 00 325/5) Do 5 MG Oral not exceed Tablet 4gm/day of acetaminop hen. sugammadex 2017-03 No Route: IV, M emoria (ANES) 2-13 Drug form: l 22:11: SOLN, ONCE, 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/14/18 16:11:00 OVERHEAD CLE[employer]ER ePHEDrine 2017-03 No Route: IV, Me moria (ANES) 2-13 Drug form: l 22:07: INJ, ONCE, 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/14/18 16:07:00 OVERHEAD CLE[employer]ER succinylcho 2017-03 No Route: IV, Memoria line (ANES) 2-13 Drug form: l 22:02: INJ, ONCE, 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/14/18 16:02:00 OVERHEAD CLE[employer]ER phenylephri 2017-03 No Route: IV, Memoria ne (ANES) 2-13 Drug form: l 22:02: INJ, ONCE, 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/14/18 16:02:00 OVERHEAD CLEANER dexamethaso 2017-03 No Route: IV, Memoria ne (ANES) 2-13 Drug form: l 22:02: INJ, ONCE, 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/14/18 16:02:00 OVERHEAD CLE[employer]ER ondansetron 2017-03 No Route: IV, Memoria (ANES) 2-13 Drug form: l 22:02: INJ, ONCE, 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/14/18 16:02:00 OVERHEAD CLE[employer]ER fentaNYL 2017-03 No Route: IV, Mem oria (ANES) 2-13 Drug form: l 21:57: INJ, ONCE, [place] 00 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/14/18 15:57:00 OVERHEAD CLE[employer]ER lidocaine 2017-03 No Route: IV, Me moria (ANES) 2-13 Drug form: l 21:57: INJ, ONCE, [place] 00 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/14/18 15:57:00 OVERHEAD CLE[employer]ER propofol 2017-03 No Route: IV, Mem oria (ANES) 2-13 Drug form: l 21:57: INJ, ONCE, [place] 00 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/14/18 15:57:00 OVERHEAD CLE[employer]ER rocuronium 2017-03 No Route: IV, M emoria (ANES) 2-13 Drug form: l 21:57: INJ, ONCE, 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/14/18 15:57:00 OVERHEAD CLE[employer]ER midazolam 2017-03 No Route: IV, Me moria (ANES) 2-13 Drug form: l 21:57: SOLN, [place] 00 ONCE, 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/14/18 15:57:00 OVERHEAD CLE[employer]ER Promethazin 2017-03 No Notes: Do M emoria e 2-13 not give l 21:47: IV push. [place] 00 (Same as: Phenergan) Ondansetron 2017-03 No Notes: Kuldeep teto 2-13 (Same as: l 21:47: Zofran) [place] 00 MEDICATION WASTE Product Size: 4 mg Product Wasted: ___ mg Metoprolol 2017-03 No Notes: Memor ia 2-13 (Same as: l 21:47: Lopressor) [place] Push over 2 minutes Ketorolac 2017-03 No 4 days Memor ia 2-13 l 21:47: MEDICATION [place] 00 WASTE Product Size: 30 mg Product Wasted: ___ mg Labetalol 2017-03 No Notes: Memori a 2-13 (Same as: l 21:47: Normodyne, [place] 00 Trandate) Push over 2 minutes Give bolus over 2-3 minutes. Sodium 2017-03 No 500 mL, Memoria Chloride 2-13 1500 l 0.9% 21:47: ml/hr, [place] (Bolus) IV 00 Infuse Over: 20 minutes, Route: IV, 500, Drug form: INJ, ONCE, Dosing Weight 85 kg, Start date: 02/14/18 15:47:00 OVERHEAD CLE[employer]ER, 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/14/18 15:47:00 OVERHEAD CLEANER Naloxone 2017-03 No Notes: Memoria 2-13 Same as l 21:47: Narcan [place] 00 Flumazenil 2017-03 No Notes: Memor ia 2-13 (Same as: l 21:47: Romazicon) [place] 00 Morphine 2017-03 No Notes: Memoria 2-13 (Same l 21:47: as:MORPhin e Sulfate) Hydromorpho 2017-03 No Notes: Kuldeep teto ne 2-13 Same as l 21:47: Dilaudid vancomycin 2017-03 No Route: IV, M emoria (ANES) 1000 2-13 Drug form: l mg 21:45: INJ, Start date: 02/14/18 15:45:00 OVERHEAD CLEANER, 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/14/18 16:45:00 OVERHEAD CLEANER Sodium 2017-03 No Route: IV, Memor ia Chloride 2-13 Total l 0.9% IV 21:08: Volume: [place] (ANES) 1000 00 1,000, mL Start date: 02/14/18 15:08:00 OVERHEAD CLEANER, 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/14/18 16:08:00 OVERHEAD CLEANER Ativan 2017-03 No Notes: Memoria 2-13 (Same as: l 18:24: Ativan) [place] Thiamine 2017-03 No Notes: Memoria 2-13 (Same As: l 16:00: Vitamin [place] 00 B1) multivitami 2017-03 No Notes: Kuldeep teto n with 2-13 (Same l minerals 16:00: as:Thera-M Her fernandes 00 , Theragran- M) WASTE: F/P - Black; E - Municipal Trash Bin Give with food. 24 HR 2017-03 No Notes: Memoria Metoprolol 2-13 (Same as: l Tartrate 25 15:00: Toprol XL) Semyour MG Extended 00 Do Not Release Crush Tablet [Toprol] duloxetine 2017-03 No Notes: Memor ia 2-13 (Same as: l 15:00: Cymbalta) [place] 00 (Do Not Crush) Plavix 2017-03 No Notes: Memoria 2-13 (Same As: l 15:00: Plavix) [place] 00 atorvastati 2017-03 No Notes: Kuldeep teto n 2-13 (Same as: l 03:00: Lipitor) [place] Trazodone 2017-03 No Notes: Memori a Hydrochlori 2-13 (Same As: l de 50 MG 03:00: Desyrel) Marcia nn Oral Tablet 00 Sodium 2017-03 No 250 mL, Memoria Chloride 2-13 Rate: To l 0.9% 01:24: prime line [place] (titrate) 00 and flush 250 mL remaining blood products., Dosing Weight 85, kg, Route: IV, Total Volume: 250, Priority: Routine, Start Date: 02/13/18 19:24:00 OVERHEAD CLEANER, 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, Stop date: 03/15/18 19:23:00 OVERHEAD CLEANER, Replace Every: 24 hr Vancomycin 2017-03 No 2000 mg: Me moria 2-13 infuse l 00:00: over 2.5 [place] 00 hours For adult patients only: Round [...] s with feeding tube less than 14 [place] (Dobhoff, J-tube etc) and pediatric and patients. Buspirone 2017-03 No Notes: Memori a 2-12 (Same As: l 23:00: BuSpar) [place] NS 1,000 mL 2017-03 No 1,000 mL, M emoria 2-12 Rate: 75 l 22:01: ml/hr, [place] 00 Infuse over: 13.3 hr, Route: IV, Dosing Weight 85 kg, Total Volume: 1,000, Start date: 02/13/18 16:01:00 OVERHEAD CLEANER, 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, Stop date: 03/15/18 16:00:00 OVERHEAD CLEANER, 2.1, m2 Rocephin + 2017-03 No Notes: Memor ia Sodium 12 (Same As: l Chloride 22:00: Rocephin). Her fernandes 0.9% IV 100 00 Use with mL 100 mL NS and infuse over 30 min MEDICATION WASTE Product Size: 1000 mg Product Wasted: ___ mg clopidogrel 2017-03 No 75 mg = 1 M emoria 75 MG Oral 2-12 tab, PO, l Tablet 21:11: Daily, # [place] [Plavix] 00 90 tab, 1 Refill(s) duloxetine 2017-03 No 30 mg, PO, M emoria 2-12 Daily, 0 l 21:11: Refill(s) [place] 00 metoprolol 2017-03 No 25 mg = [...] PO, l oral tablet 21:11: Bedtime, # [place] 00 30 tab, 0 Refill(s) busPIRone 2017-03 No 10 mg = 1 Mem oria 10 mg oral 2-12 tab, PO, l tablet 21:11: BID, 0 [place] 00 Refill(s) Sulfamethox 2017-03 No 1 tab, PO, Memoria azole 800 2-12 BID, # 14 l MG / 21:11: tab, 0 [place] Trimethopri 00 Refill(s) m 160 MG Oral Tablet Tramadol 2017-03 No 50 mg, PO, Mem oria 2-12 Q4-6H, PRN l 21:11: Pain, # 20 [place] 00 tab, 0 Refill(s) midodrine 2017-03 No 2.5 mg = 1 Me moria 2.5 mg oral 2-12 tab, PO, l tablet 21:11: BID, 0 [place] 00 Refill(s) Acetaminoph 2017-03 No Notes: Do M emoria en 2-12 not exceed l 20:53: 4 gm/day. (Same as: Tylenol) Ondansetron 2017-03 No Notes: Kuldeep teto -12 (Same as: l 20:53: Zofran) MEDICATION WASTE Product Size: 4 mg Product Wasted: ___ mg Glucagon 2017-03 No 1 mg, Memoria 12 Route: IM, l 20:53: Drug form: [place] 00 PDR/INJ, PRN, kg, PRN Blood Glucose Results, Start date: 02/13/18 14:53:00 OVERHEAD CLEANER, 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, Stop date: 03/15/18 14:52:00 OVERHEAD CLEANER Dextrose 2017-03 No 25 gm, 50 Kuldeep teto 50% Syringe 2-12 mL, Route: l 20:53: IVP, Drug Form: INJ, kg, PRN, PRN Blood Glucose Results, Start date: 02/13/18 14:53:00 OVERHEAD CLEANER, 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, Stop date: 03/15/18 14:52:00 OVERHEAD CLEANER DULoxetine 2017-03 No 30 mg = 1 [...] 2-12 tab, PO, l oral 18:48: Daily, # [place] enteric 00 30 tab, 0 coated Refill(s) tablet clopidogrel 2017-03 Yes 75 mg = 1 M emoria 75 mg oral 2-12 tab, PO, l tablet 18:48: Daily, 0 [place] 00 Refill(s) Aspirin 81 2017-03 No 162 mg = 2 M emoria MG Enteric 2-12 tab, PO, l Coated 18:48: Daily, # [place] Tablet 00 90 tab, 3 Refill(s) metoprolol [...] PO, l oral tablet 18:48: Bedtime, 0 [place] 00 Refill(s) midodrine 2017-03 No 5 mg = 2 Kuldeep teto 2.5 mg oral 2-12 tab, PO, l tablet 18:48: Daily, # [place] 00 180 tab, 0 Refill(s) busPIRone 2017-03 Yes 10 mg = 1 Mem oria 10 mg oral 2-12 tab, PO, l tablet 18:48: BID, 0 [place] 00 Refill(s) Trazodone 2017-03 No 50 mg = 1 Mem oria Hydrochlori 2-12 tab, PO, l de 50 MG 18:48: TID, # 90 Herm ladi Oral Tablet 00 tab, 0 Refill(s) clopidogrel 2017-03 Yes [id number] 75mg Take 1 [facility] 75 mg 1-14 07 tablet by ity of tablet 00:00: mouth [place] 00 daily. [facility] clopidogrel 2017-03 Yes [id number] 75mg Take 1 [facility] 75 mg 1-14 07 tablet by ity of tablet 00:00: mouth [place] 00 daily. [facility] clopidogrel 2017-03 2020- No [id number] 75mg Take 1 [facility] 75 mg 1-14 09-10 tablet by ity of tablet 00:00: 00:00 mouth [place] 00 :00 daily. [facility] clopidogrel 2017-03 2020- No [id number] 75mg Take 1 [facility] 75 mg 1-14 09-10 tablet by ity of tablet 00:00: 00:00 mouth [place] 00 :00 daily. [facility] DULoxetine 2017-03 Yes [id number] 30mg Take 1 [facility] 30 mg 0-22 capsule by ity of capsule 00:00: mouth [place] 00 daily. [facility] busPIRone 2017-03 Yes [id number] 10mg Take 1 Un jody 10 mg 0-22 tablet by ity of tablet 00:00: mouth 2 [place] 00 (two) Medical times Branch daily. DULoxetine 2017-03 Yes [id number] 30mg Take 1 [facility] 30 mg 0-22 capsule by ity of capsule 00:00: mouth [place] 00 daily. [facility] busPIRone 2017-03 Yes [id number] 10mg Take 1 Un jody 10 mg 0-22 tablet by ity of tablet 00:00: mouth 2 [place] 00 (two) Medical times Branch daily. DULoxetine 2017-03- No [id number] 30mg Take 1 [facility] 30 mg 0-22 09-10 capsule by ity of capsule 00:00: 00:00 mouth [place] 00 :00 daily. [facility] busPIRone 2017-03 2020- No [id number] 10mg Take 1 U nivers 10 mg 0-22 09-10 tablet by ity of tablet 00:00: 00:00 mouth 2 [place] 00 :00 (two) Medical times Branch daily. DULoxetine 2017-03- No [id number] 30mg Take 1 [facility] 30 mg 0-22 09-10 capsule by ity of capsule 00:00: 00:00 mouth [place] 00 :00 daily. [facility] busPIRone 2017-03- No [id number] 10mg Take 1 U nivers 10 mg 0-22 09-10 tablet by ity of tablet 00:00: 00:00 mouth 2 [place] 00 :00 (two) Medical times Branch daily. pantoprazol 2018-0 Yes 40mg Take 1 Univ ers e 40 mg EC 9-08 tablet by ity of tablet 00:00: mouth [place] 00 daily. [facility] pantoprazol 2018-0 Yes 40mg Take 1 Univ ers e 40 mg EC 9-08 tablet by ity of tablet 00:00: mouth [place] 00 daily. [facility] pantoprazol 2018-0 Yes 40mg Take 1 Univ ers e 40 mg EC 9-08 tablet by ity of tablet 00:00: mouth [place] 00 daily. [facility] sennosides 2018-0 Yes 8.6mg Take 1 Univ ers 8.6 mg 9-08 tablet by ity of tablet 00:00: mouth [place] 00 daily. [facility] pantoprazol 2018-0 Yes 40mg Take 1 Univ ers e 40 mg EC 9-08 tablet by ity of tablet 00:00: mouth [place] 00 daily. [facility] sennosides 2018-0 Yes 8.6mg Take 1 Univ ers 8.6 mg 9-08 tablet by ity of tablet 00:00: mouth [place] 00 daily. [facility] pantoprazol 2018- Yes 40mg Take 1 Univ ers e 40 mg EC 9-08 tablet by ity of tablet 00:00: mouth [place] 00 daily. [facility] pantoprazol 2018 Yes 40mg Take 1 Univ ers e 40 mg EC 9-08 tablet by ity of tablet 00:00: mouth [place] 00 daily. [facility] pantoprazol 2017- Yes 40mg Take 1 Univ ers e 40 mg EC 9-08 tablet by ity of tablet 00:00: mouth [place] 00 daily. [facility] pantoprazol 2017- 2020- No 40mg Take 1 Uni vers e 40 mg EC 9-08 11-09 tablet by ity of tablet 00:00: 00:00 mouth [place] 00 :00 daily. [facility] pantoprazol 2017- 2020- No 40mg Take 1 Uni vers e 40 mg EC 9-08 11-09 tablet by ity of tablet 00:00: 00:00 mouth [place] 00 :00 daily. [facility] pantoprazol 2017- 2020- No 40mg Take 1 Uni vers e 40 mg EC -08 11-09 tablet by ity of tablet 00:00: 00:00 mouth [place] 00 :00 daily. Medical Branch sennosides 2018-0 2020- No 8.6mg Take 1 Uni vers 8.6 mg 9-08 09-10 tablet by ity of tablet 00:00: 00:00 mouth [place] 00 :00 daily. Medical Branch sennosides 2018-0 2020- No 8.6mg Take 1 Uni vers 8.6 mg 9-08 09-10 tablet by ity of tablet 00:00: 00:00 mouth [place] 00 :00 daily. [facility] Vital Signs Vital Name Observation Time Observation Value Comments Source Systolic blood 2021-06-01 15:26:00 136 mm[Hg] Kaela Johnson pressure Diastolic blood 2021-06-01 15:26:00 90 mm[Hg] Nellie Johnson pressure Heart rate 2021-06-01 15:26:00 82 /min Kaela echols Body temperature 2021-06-01 15:26:00 36 Aretha Kaycee Johnson Respiratory rate 2021-06-01 15:26:00 16 /min Kaycee Johnson Body height 2021-06-01 15:26:00 177.8 cm Kaela echols Body weight 2021-06-01 15:26:00 101.152 kg Kaela tenorioboliang BMI 2021-06-01 15:26:00 32.00 kg/m2 Kaela tenorioboliang Systolic blood 2021-05-03 19:49:00 130 mm[Hg] Kaela Martinybjessica pressure Diastolic blood 2021-05-03 19:49:00 78 mm[Hg] Kelse y Seybold pressure Heart rate 2021-05-03 19:49:00 109 /min Kaela tenorioboliang Body temperature 2021-05-03 19:49:00 36.67 Aretha Kaycee tenorio Seybjessica Respiratory rate 2021-05-03 19:49:00 21 /min Kaycee Johnson Body height 2021-05-03 19:49:00 177.8 cm Kaela tenorioboliang Body weight 2021-05-03 19:49:00 102.059 kg Kaela tenorioboliang BMI 2021-05-03 19:49:00 32.28 kg/m2 Kaela tenorioboliang Systolic blood 2020-01-12 19:23:00 145 mm[Hg] [facility] Diastolic blood 2020-01-12 19:23:00 93 mm[Hg] [facility] Heart rate 2020-01-12 19:12:00 91 /min Universi ty [facility] Respiratory rate 2020-01-12 19:12:00 17 /min [facility] 2020-01-12 19:12:00 180.3 cm Universi ty [facility] Body weight 2020-01-12 19:12:00 108.5 kg Universi [facility] [place] [facility] BMI 2020-01-12 19:12:00 33.36 kg/m2 [facility] Oxygen saturation in 2020-01-12 19:12:00 92 /min [facility] Arterial blood by [facility] Pulse oximetry Branch Systolic blood 2020-01-12 19:23:00 145 mm[Hg] Univer sity of pressure [facility] Diastolic blood 2020-01-12 19:23:00 93 mm[Hg] Unive rsity of pressure [facility] Heart rate 2020-01-12 19:12:00 91 /min Universi ty [facility] Respiratory rate 2020-01-12 19:12:00 17 /min [facility] height 2020-01-12 19:12:00 180.3 cm Universi ty [facility] Body weight 2020-01-12 19:12:00 108.5 kg Universi ty [facility] BMI 2020-01-12 19:12:00 33.36 kg/m2 Universi ty [facility] Oxygen saturation in 2020-01-12 19:12:00 92 /min University Arterial blood by [facility] Pulse oximetry Branch Oxygen saturation in 2019-11-13 19:01:00 96 /min University Arterial blood by [facility] Pulse oximetry Branch Systolic blood 2019-11-13 19:01:00 131 mm[Hg] Univer sity of pressure [facility] Diastolic blood 2019-11-13 19:01:00 73 mm[Hg] Unive rsity of pressure [facility] Heart rate 2019-11-13 19:01:00 79 [facility] [place] [facility] Body temperature 2019-11-13 19:01:[address] [facility] Res[facility] rate 2019-11-13 19:01:00 24 /min [facility] Body height 2019-11-13 19:01:00 180.3 cm [facility] [place] [facility] Body weight 2019-11-13 19:01:00 109[facility]317 [facility] [place] [facility] BMI 2019-11-13 19:01:00 33.61 kg/m2 [facility] Respitory Rate 2018-08-16 16:55:00 Memori al [place] Systolic (mm Hg) 2018-08-16 16:55:00 Kuldeep rial [place] Diastolic (mm Hg) 2018-08-16 16:55:00 Mem orial [place] Heart Rate 2018-08-16 16:55:00 [facility] [place] Temperature Oral (F) 2018-08-16 13:25:00 96.9 F [facility] [place] Respitory Rate 2018-08-16 13:25:00 Memori al [place] Systolic (mm Hg) 2018-08-16 13:25:00 Kuldeep rial [place] Diastolic (mm Hg) 2018-08-16 13:25:00 Mem orial [place] Heart Rate 2018-08-16 13:25:00 [facility] [place] BMI Calculated 2018-08-16 07:46:00 Memori al [place] Height 2018-08-16 07:46:00 185.42 cm [facility] [place] Weight 2018-08-16 07:46:00 [facility] [place] Systolic (mm Hg) 2018-08-16 07:44:00 Kuldeep rial [place] Diastolic (mm Hg) 2018-08-16 07:44:00 Mem orial [place] Heart Rate 2018-08-16 07:44:00 [facility] [place] Respitory Rate 2018-08-16 07:44:00 Memori al [place] Temperature Oral (F) 2018-08-16 07:44:00 98.2 F [facility] [place] Temperature Oral (F) 2018-08-16 06:58:00 98.3 F [facility] [place] Weight 2018-08-16 01:17:00 [facility] [place] Height 2018-08-16 01:17:00 185.42 cm [facility] [place] BMI Calculated 2018-08-16 01:17:00 Memori al [place] Height 2018-06-19 10:53:00 185.42 cm [facility] [place] BMI Calculated 2018-06-19 10:53:00 Memori al [place] Weight 2018-06-19 10:53:00 [facility] [place] Temperature Oral (F) 2018-06-03 20:45:00 98.2 F [facility] [place] Systolic (mm Hg) 2018-06-03 20:45:00 Kuldeep rial [place] Diastolic (mm Hg) 2018-06-03 20:45:00 Mem orial [place] Respitory Rate 2018-06-03 20:45:00 Memori al [place] Heart Rate 2018-06-03 20:45:00 [facility] [place] Systolic (mm Hg) 2018-06-03 19:45:00 Kuldeep rial [place] Diastolic (mm Hg) 2018-06-03 19:45:00 Mem orial [place] Respitory Rate 2018-06-03 19:45:00 Memori al [place] Heart Rate 2018-06-03 19:45:00 [facility] [place] Systolic (mm Hg) 2018-06-03 19:15:00 Kuldeep rial [place] Diastolic (mm Hg) 2018-06-03 19:15:00 Mem orial [place] Respitory Rate 2018-06-03 19:15:00 Memori al [place] Heart Rate 2018-06-03 19:15:00 [facility] [place] Temperature Oral (F) 2018-06-03 18:45:00 97.8 F [facility] [place] BMI Calculated 2018-06-03 14:00:00 Memori al [place] Weight 2018-06-03 14:00:00 [facility] [place] Height 2018-06-03 14:00:00 185.4 cm [facility] [place] Temperature Oral (F) 2018-06-03 12:15:00 98.1 F [facility] [place] BMI Calculated 2018-06-02 23:24:00 Memori al [place] Weight 2018-06-02 23:24:00 [facility] [place] Height 2018-06-02 23:24:00 185.42 cm [facility] [place] Weight 2018-06-02 20:36:00 [facility] [place] Respitory Rate 2018-05-21 12:44:00 Memori al [place] Systolic (mm Hg) 2018-05-21 12:44:00 Kuldeep rial [place] Diastolic (mm Hg) 2018-05-21 12:44:00 Mem orial [place] Temperature Oral (F) 2018-05-21 12:44:00 98.3 F [facility] [place] Heart Rate 2018-05-21 12:44:00 [facility] [place] Systolic (mm Hg) 2018-05-21 09:00:00 Kuldeep rial [place] Diastolic (mm Hg) 2018-05-21 09:00:00 Mem orial [place] Heart Rate 2018-05-21 09:00:00 [facility] [place] Respitory Rate 2018-05-21 09:00:00 Memori al [place] Temperature Oral (F) 2018-05-21 09:00:00 97.8 F [facility] [place] Systolic (mm Hg) 2018-05-21 05:00:00 Kuldeep rial [place] Diastolic (mm Hg) 2018-05-21 05:00:00 Mem orial [place] Temperature Oral (F) 2018-05-21 05:00:00 98.0 F [facility] [place] Respitory Rate 2018-05-21 05:00:00 Memori al [place] Heart Rate 2018-05-21 05:00:00 [facility] [place] Weight 2018-05-09 18:49:00 [facility] [place] BMI Calculated 2018-05-09 18:49:00 Memori al [place] Height 2018-05-09 18:49:00 185.42 cm [facility] [place] Systolic (mm Hg) 2018-03-01 19:00:00 Kuldeep rial [place] Diastolic (mm Hg) 2018-03-01 19:00:00 Mem orial [place] Systolic (mm Hg) 2018-03-01 18:00:00 Kuldeep rial [place] Diastolic (mm Hg) 2018-03-01 18:00:00 Mem orial [place] Temperature Oral (F) 2018-03-01 18:00:00 98.0 F [facility] [place] Diastolic (mm Hg) 2018-03-01 17:00:00 Mem orial [place] Systolic (mm Hg) 2018-03-01 17:00:00 Kuldeep rial [place] Temperature Oral (F) 2018-03-01 14:00:00 98.1 F [facility] [place] Temperature Oral (F) 2018-03-01 11:42:00 98 F [facility] Respitory Rate 2018-02-28 14:00:00 [facility] Respitory Rate 2018-02-28 13:00:00 [facility] Respitory Rate 2018-02-28 12:00:00 [facility] BMI Calculated 2018-02-28 10:03:00 [facility] Height 2018-02-28 10:03:00 185.42 cm [facility] Weight 2018-02-28 10:03:00 [facility] Weight 2018-02-28 10:01:00 [facility] BMI Calculated 2018-02-28 10:01:00 [facility] Height 2018-02-28 10:01:00 185.42 cm [facility] Temperature Oral (F) 2018-02-28 08:15:00 98.0 F [facility] Systolic (mm Hg) 2018-02-28 08:15:00 [facility]uldeep [facility] [place] Diastolic (mm Hg) 2018-02-28 08:15:00 [facility] Respitory Rate 2018-02-28 08:15:00 [facility] Systolic (mm Hg) 2018-02-28 07:45:00 Kuldeep [facility] [place] Diastolic (mm Hg) 2018-02-28 07:45:00 [facility] Respitory Rate 2018-02-28 07:45:00 [facility] Systolic (mm Hg) 2018-02-28 07:27:00 [facility]uldeep [facility] [place] Diastolic (mm Hg) 2018-02-28 07:27:00 [facility] Temperature Oral (F) 2018-02-28 07:27:00 98.0 F [facility] Respitory Rate 2018-02-28 07:27:00 [facility] Temperature Oral (F) 2018-02-28 05:30:00 97.9 F [facility] Height 2018-02-28 03:15:00 185.42 cm [facility] Heart Rate 2018-02-28 03:15:00 [facility] BMI Calculated 2018-02-28 03:15:00 [facility] Weight 2018-02-28 03:15:00 [facility] Systolic (mm Hg) 2018-02-21 16:48:00 Kuldeep rial [facility] Diastolic (mm Hg) 2018-02-21 16:48:00 [facility] Temperature Oral (F) 2018-02-21 16:48:00 98.3 F [facility] Respitory Rate 2018-02-21 16:48:00 [facility] Heart Rate 2018-02-21 16:48:00 [facility] Heart Rate 2018-02-21 13:47:00 [facility] Temperature Oral (F) 2018-02-21 13:47:00 97.7 F [facility] Systolic (mm Hg) 2018-02-21 13:47:00 Kuldeep rial [facility] Diastolic (mm Hg) 2018-02-21 13:47:00 Mem [facility] Respitory Rate 2018-02-21 13:47:00 [facility] Temperature Oral (F) 2018-02-21 10:00:00 98.3 F [facility] Systolic (mm Hg) 2018-02-21 10:00:00 Kuldeep rial [facility] Diastolic (mm Hg) 2018-02-21 10:00:00 Mem o[facility] Heart Rate 2018-02-21 10:00:00 [facility] Respitory Rate 2018-02-21 10:00:00 [facility] BMI Calculated 2018-02-13 20:53:00 [facility] Height 2018-02-13 20:53:00 185.42 cm [facility] Weight 2018-02-13 20:53:00 [facility] Height 2018-02-13 18:42:00 185.42 cm Sonu Ahuja Weight 2018-02-13 18:42:00 Sonu Ahuja BMI Calculated 2018-02-13 18:42:00 Carol montoya [facility] Systolic (mm Hg) 2018-02-13 18:42:00 Kuldeep king [facility] Diastolic (mm Hg) 2018-02-13 18:42:00 Mem o[facility] Procedures Procedure Date / Time Performing Clinician Source Performed EXTERNAL PROVIDER - ADC 2020-11-03 05:01:00 Doctor Unassigned, [facility] REFERRAL [facility] AGREEMENTS AUTHORIZATIONS 2019-11-11 05:01:00 Doctor Unassigned, [facility] AND IRREVOCABLE [facility] ASSIGNMENTS (FORM 2001) CABG x 4 - Coronary 2017-11-02 05:00:00 Sonu Ahuja artery bypass grafts x 4 CABG - Coronary artery 2017-11-02 05:00:00 Doc vasquez [facility] bypass graft Repair of umbilical 2016-03-05 00:00:00 Sonu Ahuja hernia Encounters Start End Encounter Admission Attending Care Care Encounter Source Date/Time Date/Time Type Type Clinicians Facility Department ID 2018-06-02 Inpatient E [facility] [id number] Mem oria 16:35:00 l Cel[facility] l [facility] 2021-06-17 2021-06-17 Outpatient KAELA ALLEN [id number] Kaela 00:00:00 00:00:00 PABLO randall 2021-06-13 2021-06-13 Outpatient KAELA BAILEY [id number] Kaela 00:00:00 00:00:00 VERITO randall 2021-06-01 2021-06-01 Office Garfield Allen 1.2.840.114 [id number] Kaela 11:00:00 11:15:00 Visit Pablo Méndez 350.1.13.13 Se schaffer 1Reema2.7.2.686 [id number] 2021-05-31 2021-05-31 Outpatient KAELA ALLEN [id number] Kaela 10:30:00 10:30:00 PABLO randall 2021-05-04 2021-05-04 Outpatient LAB90 KAELA BRICE [id number] Kaeal 09:45:00 09:45:00 Seybol d 2021-05-04 2021-05-04 Outpatient KAELA ALLEN KAELA [id number] Kaela 00:00:00 00:00:00 PABLO Seybol d 2021-05-03 2021-05-03 Office Garfield Allen 1.2.840.114 [id number] Kaela 14:15:00 15:00:00 Visit Pablo Dev 350.1.13.13 Se schaffer 1.2.7.2.686 [id number] 2021-05-03 2021-05-03 Outpatient KAELA ALLEN KAELA [id number] Kaela 00:00:00 00:00:00 PABLO Martinybol tonia 2021-01-13 2021-01-13 Outpatient R KEYONA SUAZO [facility] [id number] Univers 15:00:00 15:00:00 KEYONA SUAZO [id number] i ty [facility] 2021-01-13 2021-01-13 Outpatient R KEYONA SUAZO [facility] [id number] Univers 15:00:00 15:00:00 KEYONA SUAZO i ty [facility] 2020-11-03 2020-11-03 Orders Doctor TERRY 1.2.840.114 [id number] Univers 00:00:00 00:00:00 Only Unassigned, EMMA 350.1.13.10 [place]y of [place] [facility] 4.2.7.2.686 Oni as [id number] [address] 2020-07-12 2020-07-12 Outpatient R TIN [facility] [id number] Univers 13:00:00 13:00:00 JD [id number] ity o [facility] 2020-07-12 2020-07-12 [facility] [id number] Univers 13:00:00 13:00:00 JD ity o [facility] 2020-05-11 2020-05-11 [facility] 1.2.840.114 [id number] 00:00:00 00:00:00 Outreach [facility] 350.1.13.10 [facility] 4.2.7.2.686 PAVILLION [id number] 2020-05-11 2020-05-11 Patient [facility] 1.2.840.114 [id number] Univers 00:00:00 00:00:00 Outreach Mahesh PRIMARY 350.1.13.10 i ty of [facility] [place] [id number] In dical [address] [place] 2020-02-06 2020-02-06 Outpatient Sue RAVEN [facility] [id number] Univers 13:00:00 13:00:00 [facility] [id number] [facility] 2020-02-06 2020-02-06 Outpatient [facility] [id number] Univers 13:00:00 13:00:00 [facility] 2020-01-19 2020-01-19 Telephone [facility] [id number] Univers 00:00:00 00:00:00 Jd Fierro 350.1.13.10 it[place] of [place] [id number] In dical [place] [address] [place] [address] 2020-01-19 2020-01-19 Telephone [facility] [id number] 00:00:00 00:00:00 Jd Fierro 350.1.13.10 [place] 4.2.7.2.686 Professio [id number] [address] 2020-01-14 2020-01-14 Outpatient R TIN, [facility] [id number] Univers 11:40:00 11:40:00 JD [id number] joceliney o f [facility] 2020-01-14 2020-01-14 [facility] [id number] Univers 11:40:00 11:40:00 JD smith o f [facility] 2020-01-12 2020-01-12 [facility] 1.2.840.114 [id number] Univers 12:41:56 13:52:29 Visit Jd Fierro 350.1.13.10 [place] [id number] In dical [address] 2020-01-12 2020-01-12 Office [facility] 1.2.840.114 [id number] 12:41:56 13:52:29 Visit Jd Knowleston 350.1.13.10 [place] 4.2.7.2.686 Professio [id number] [address] 2020-01-12 2020-01-12 [facility] [id number] Univers 13:00:00 13:00:00 JD [id number] ity o f [facility] 2020-01-12 2020-01-12 [facility] [id number] Univers 13:00:00 13:00:00 JD cary o [facility] 2019-11-13 2019-11-13 Office Care, Denny Daniel DAVIDSON 1.2.840 .114 [id number] Univers 13:03:27 14:10:15 Visit Arsen Dixon [facility] 350.1.13.10 [place] [id number] [address] 2019-11-13 2019-11-13 Telephone Arsen Dixon YESSIRHONDA 1.2.840.114 [id number] Univers 00:00:00 00:00:00 [facility] 350.1.13.10 it y of [place] [id number] [address] 2019-11-11 2019-11-11 Outpatient R [facility] [id number] Univers 10:30:00 10:30:00 ity of [facility] 2019-11-11 2019-11-11 Outpatient R ARSEN DIXON [facility] [id number] Univers 10:30:00 10:30:00 ity of [facility] 2019-11-11 2019-11-11 Orders Doctor STEWART 1.2.840.114 [id number] Univers 00:00:00 00:00:00 Only Unassigned, EMMA 350.1.13.10 ity of [place] [facility] 4.2.7.2.686 Oni as [phone] [facility] 009 Branch 2019-05-27 2019-05-27 Telephone TERRY Roa 1.2.840.114 [id number] Univers 00:00:00 00:00:00 Sofia CARTER 350.1.13.10 it y of [facility] [place] [id number] [facility] 037 Branch 2019-03-28 2019-03-28 Telephone HUMPHREY Mcmahon 1.2.840.114 [id number] Univers 00:00:00 00:00:00 Edin Larson [facility] 350.1.13.10 ity of [facility] [place].2.[place] [id number] [facility] 059 Branch 2018-08-16 2018-08-16 Observatio nullFlavo [facility] 3477 [id number] Memoria 01:10:48 18:24:00 jasmina Ahuja 03 [facility] 2018-08-15 2018-08-16 Outpatient Emery [facility] [id number] 20:10:48 13:24:00 Gladys [facility]ogesh [facility] 2018-08-16 2018-08-16 Outpatient E [facility] A[facility]AN [id number] [facility] 01:28:00 01:28:00 2018-06-21 2018-06-21 Bedded nullFlavo [facility] [id number] Memoria 15:57:00 21:41:00 Outpatient sue Ahuja 02 [facility] 2018-06-21 2018-06-21 Outpatient Pedro [facility] [id number] 10:57:00 16:41:00 Pepito Tapia 2018-06-21 2018-06-21 Outpatient [facility] [id number] Memoria 10:57:00 10:57:00 [facility] 2018-06-02 2018-06-03 Inpatient nullFlavo [facility] [id number] Memoria 20:34:00 23:50:00 sue Ahuja 01 [facility] 2018-06-02 2018-06-03 Outpatient Eddy [facility] [id number] 15:34:00 18:50:00 Timothy 2018-05-09 2018-05-21 Inpatient nullFlavo [facility] [id number] Memoria 18:05:00 17:09:00 r [facility] 66 l [facility] 2018-05-09 2018-05-21 Outpatient Gabe [facility] [id number] 12:05:00 12:09:00 Olaorogerpo 68 M 2018-05-08 2018-05-08 Ambulatory nullFlavo [facility] [id number] Memoria 19:30:00 19:30:00 Pre-Reg r Cardiology 03 l [facility] 2018-05-08 2018-05-08 Outpatient MHIE IE [id number] Memoria 13:30:00 13:30:00 03 l Celina 2018-05-08 2018-05-08 Outpatient Seymour [facility] [id number] 13:30:00 13:30:00 Hector Vanegas 03 2018-04-29 2018-04-29 Ambulatory nullFlavo [facility] [id number] Memoria 16:30:00 16:30:00 Pre-Reg r Cardiology 02 l [facility] 2018-04-29 2018-04-29 Outpatient MHIE IE [id number] Memoria 10:30:00 10:30:00 02 l [facility] 2018-04-29 2018-04-29 Outpatient Seymour, [facility] [id number] 10:30:00 10:30:00 Hector Vanegas 2018-04-05 2018-04-06 Outpt Diag nullFlavo [facility] [id number] Memoria 22:00:00 05:59:00 Services r Outpatient 00 l [facility] 2018-04-05 2018-04-05 Outpatient Nghai Oneal 2.16.840. 2.16.840. 1. [id number] 16:00:00 23:59:00 M [id number] 3.615.30 5.30 2018-02-28 2018-03-01 Inpatient nullFlavo [facility] 22917 [id number] Memoria 09:45:00 20:05:00 r Seymour 63 l [facility] 2018-02-28 2018-03-01 Outpatient Jamie Rush [facility] [id number] 03:45:00 14:05:00 A 63 2018-02-28 2018-02-28 Emergency nullFlavo [facility] [id number] Memoria 03:10:00 08:14:00 r Seymour 00 l [facility] 2018-02-27 2018-02-28 Outpatient Adam GLENDA [facility] [id number] 21:10:00 02:14:00 rBigido Jennings 2018-02-13 2018-02-21 Inpatient nullFlavo [facility] 06420 [id number] Memoria 20:01:00 20:00:00 r Celina 46 l [facility] 2018-02-13 2018-02-21 Outpatient Venkata [facility] [id number] 14:01:00 14:00:00 Chi 46 Gia 2018-02-13 2018-02-14 Outpatient nullFlavo [facility] [id number] Memoria 18:30:00 05:59:59 r Cardiology 01 [facility] 2018-02-13 2018-02-13 Outpatient Seymour [facility] [id number] 12:30:00 23:59:59 Hector Gene 2018-02-13 2018-02-13 Outpatient IE IE [id number] Memoria 12:30:00 12:30:00 01 [facility] 2018-02-11 2018-02-11 Ambulatory nullFlavo [facility] [id number] Memoria 17:00:00 17:00:00 Pre-Reg r Cardiology 00 l [facility] 2018-02-11 2018-02-11 Outpatient [employer] [id number] 11:00:00 11:00:00 Hector Gene 00 Results Test Description Test Time Test Comments Results Result Comments Source CHEM PANEL 2018-08-16 09:13:00 Test Item Value Reference Range Interpretation Comme nts Bili Indirect (test Unable to Calculate See_Comment [Automated message] The code = Bili Indirect) system which generated this result transmit garrett reference range: <=1.0. T he reference range was not u sed to interpret this result as normal/abnormal . [facility] [id number] 09:13:00 Test Item Value Reference Range Interpretation Comments Bili Direct (test code no gt See_Comment [Aut omated message] The = Bili Direct) system which generated this result tra nsmitted reference range : <=0.3. The reference r ondina was not used to int erpret this result as cassie l/abnormal. [facility]2019-06-14 09:13:00 Test Item Value Reference Range Interpretation Comments Total Protein (test code = Total 6.9 6.4-8.4 Protein) [facility]2019-06-14 09:13:00 Test Item Value Reference Range Interpretation Comments Albumin Lvl (test code = Albumin Lvl) 3.0 3.5-5.0 [facility]2019-06-14 09:13:00 Test Item Value Reference Range Interpretation Comments Globulin (test code = Globulin) 3.9 2.7-4.2 [facility]2019-06-14 09:13:00 Test Item Value Reference Range Interpretation Comments Alk Phos (test code = Alk Phos) 214 39-136 [facility]2019-06-14 09:13:00 Test Item Value Reference Range Interpretation Comments Bili Total (test code = Bili Total) 0.3 0.2-1.3 [facility]2019-06-14 09:13:00 Test Item Value Reference Range Interpretation Comments AST (test code = AST) 207 See_Comment [Auto mated message] The system which ge nerated this result transmit garrett reference range : <=37. The reference range was not used to interpr et this result as cassie l/abnormal. [facility]2019-06-14 09:13:00 Test Item Value Reference Range Interpretation Comments A/G Ratio (test code = A/G Ratio) 0.8 1 0.7-1.6 [facility]2019-06-14 09:13:00 Test Item Value Reference Range Interpretation Comments ALT (test code = ALT) 148 See_Comment [Auto mated message] The system which ge nerated this result transmit garrett reference range : <=65. The reference range was not used to interpr et this result as cassie l/abnormal. [facility]jvuxskIFJMAAXJYNWW9268-76-33 09:13:00 Test Item Value Reference Range Interpretation Comments AGAP (test code = AGAP) 11.2 10.0-20.0 [place] [id number] 09:13:00 Test Item Value Reference Range Interpretation Comments eGFR (test code = eGFR) 85 [place] 420189-06-14 09:13:00 Test Item Value Reference Range Interpretation Comments Creatinine Lvl (test code = Creatinine 0.96 0.50-1.40 Lvl) [facility] HospitalHinyqqiNTJEOFDIVXRB2300-08-62 09:13:00 Test Item Value Reference Range Interpretation Comments Potassium Lvl (test code = Potassium 4.2 3.5-5.1 Lvl) [facility] HospitalSjsfuicPIANERCELLMX9666-67-35 09:13:00 Test Item Value Reference Range Interpretation Comments Sodium Lvl (test code = Sodium Lvl) 141 135-145 [facility] HospitalKgsqaipVNGMETFRMKEB9726-16-46 09:13:00 Test Item Value Reference Range Interpretation Comments Chloride Lvl (test code = Chloride Lvl) 110 95-109 [facility] HospitalSozdbhuNEBLCASPLNEW1213-37-83 09:13:00 Test Item Value Reference Range Interpretation Comments CO2 (test code = CO2) 24 24-32 [facility] HospitalAqcyrefQQJZDOGYVOIN2918-44-49 09:13:00 Test Item Value Reference Range Interpretation Comments BUN (test code = BUN) 19 7-22 [facility] HospitalBnelqjqUEZVXSZBHDTW9442-37-21 09:13:00 Test Item Value Reference Range Interpretation Comments Glucose Lvl (test code = Glucose Lvl) 86 70-99 [facility] HospitalPgnxatnXAISAGMNUGZN8699-05-32 09:13:00 Test Item Value Reference Range Interpretation Comments Calcium Lvl (test code = Calcium Lvl) 9.0 8.5-10.5 [facility] StationAnavumnEPDTZGYJKP0923-64-64 09:13:00 Test Item Value Reference Range Interpretation Comments Microcyte (test code = 1+ *ABN*(08/16/18 Microcyte) 4:13 AM) [facility] StationUaedetmTFGCKHEZFD8399-15-40 09:13:00 Test Item Value Reference Range Interpretation Comments Neutrophils # (test code = Neutrophils 2.7 1.5-8.1 #) [facility] StationPbbppiqBVKBWJGXJG5646-96-44 09:13:00 Test Item Value Reference Range Interpretation Comments Lymphocytes # (test code = Lymphocytes 1.3 1.0-5.5 #) [facility] StationTtyyhlqZWDHUILEDC8279-85-25 09:13:00 Test Item Value Reference Range Interpretation Comments Segs (test code = Segs) 56.2 45.0-75.0 [facility] StationPzvcuawJWPQIBZACD6696-38-38 09:13:00 Test Item Value Reference Range Interpretation Comments Monocytes # (test code 0.4 See_Comment [Aut omated message] The = Monocytes #) system which generated this result tra nsmitted reference range : <=0.8. The reference r ondina was not used to int erpret this result as normal/abnormal . [facility] StationDbhcxtdVXUFLODSYA5458-88-05 09:13:00 Test Item Value Reference Range Interpretation Comments Lymphocytes (test code = Lymphocytes) 26.8 20.0-40.0 [facility] StationCdkuhexJLXODAFQDS1518-67-36 09:13:00 Test Item Value Reference Range Interpretation Comments Monocytes (test code = Monocytes) 8.7 2.0-12.0 [facility] StationQewdznxXTEQGVPCMP3376-55-17 09:13:00 Test Item Value Reference Range Interpretation Comments Basophils (test code = 2.1 See_Comment [Aut omated message] The Basophils) system which ge nerated this result tra nsmitted reference range : <=1.0. The reference r ondina was not used to int erpret this result as normal/abnormal . [facility] StationSgbhuhkJBZGZZIWPC2450-74-25 09:13:00 Test Item Value Reference Range Interpretation Comments Eosinophils (test code = 6.2 See_Comment [A utomated message] The Eosinophils) system which ge nerated this result tra nsmitted reference range : <=4.0. The reference r ondina was not used to int erpret this result as normal/abnormal . [facility] StationTnlktkzGWLRKJHRUG3649-64-02 09:13:00 Test Item Value Reference Range Interpretation Comments Basophils # (test code 0.1 See_Comment [Aut omated message] The = Basophils #) system which generated this result tra nsmitted reference range : <=0.2. The reference r ondina was not used to int erpret this result as normal/abnormal . [facility] StationAaosrmaIZWIAJMIUD1754-96-83 09:13:00 Test Item Value Reference Range Interpretation Comments Eosinophils # (test code 0.3 See_Comment [A utomated message] The = Eosinophils #) system whic h generated this result tra nsmitted reference range : <=0.5. The reference r ondina was not used to int erpret this result as normal/abnormal . [facility] StationGwnyojeLWGDKVCTHD7591-75-70 09:13:00 Test Item Value Reference Range Interpretation Comments MCV (test code = MCV) 77.7 80.0-94.0 [facility]XcvsbvaRPLNBDYADY1999-25-29 09:13:00 Test Item Value Reference Range Interpretation Comments Hgb (test code = Hgb) 10.5 14.0-18.0 [facility]borTcwzlwrDMEOLZTNDF7568-42-08 09:13:00 Test Item Value Reference Range Interpretation Comments Hct (test code = Hct) 33.2 42.0-54.0 [facility]borPowcsikQTJHICCMTE4664-00-04 09:13:00 Test Item Value Reference Range Interpretation Comments WBC (test code = WBC) 4.7 3.7-10.4 [facility] StationIhjrfilLBWRIIYGSP6066-91-83 09:13:00 Test Item Value Reference Range Interpretation Comments RBC (test code = RBC) 4.27 4.70-6.10 [facility] StationJbkluzjXNHVLIWHSE1112-32-21 09:13:00 Test Item Value Reference Range Interpretation Comments MCH (test code = MCH) 24.5 pg 27.0-31.0 [facility]borRbviwshHDFMUGRWVH6179-44-78 09:13:00 Test Item Value Reference Range Interpretation Comments Platelet (test code = Platelet) 267 133-450 [facility] NpxktotULDZYHICAD8087-45-90 09:13:00 Test Item Value Reference Range Interpretation Comments MPV (test code = MPV) 7.8 7.4-10.4 [facility] StationNfdvgovKIOXJHSHLW9292-84-50 09:13:00 Test Item Value Reference Range Interpretation Comments MCHC (test code = MCHC) 31.5 32.0-36.0 [facility] StationBosxkhvPLAERZTVTL5180-64-36 09:13:00 Test Item Value Reference Range Interpretation Comments RDW (test code = RDW) 19.2 11.5-14.5 [facility] RockLgvuebnCOGDSYEVQD4746-90-53 02:46:00 Test Item Value Reference Range Interpretation Comments [facility] HIV 4th GEN (test Negative *NA*(08/15/18 code = CDC HIV 4th 9:46 PM) GEN) [facility] [employer] SKCJAOV2839-63-00 02:44:00 Test Item Value Reference Range Interpretation Comments ABO/Rh (test code = ABO/Rh) A POS [facility] [employer] ZBEFOPC6795-16-58 02:44:00 Test Item Value Reference Range Interpretation Comments Antibody Scrn (test Negative (08/15/18 9:44 code = Antibody Scrn) PM) [facility] RockCARDIAC JFVQQJS7070-89-25 02:42:00 Test Item Value Reference Range Interpretation Comments Troponin-I (test code no gt See_Comment [Auto mated message] The = Troponin-I) system which g enerated this result transmit garrett reference range : <=0.40. The reference r ondina was not used to interpr et this result as cassie l/abnormal. [facility] [id number] 02:42:00 Test Item Value Reference Range Interpretation Comments Lipase Lvl (test code = Lipase Lvl) 165 73-393 [facility] [id number] 02:42:00 Test Item Value Reference Range Interpretation Comments Bili Indirect (test 0.2 See_Comment [Automa garrett message] The code = Bili Indirect) system which generated this result tra nsmitted reference range : <=1.0. The reference r ondina was not used to int erpret this result as normal/abnormal . [facility] [id number] 02:42:00 Test Item Value Reference Range Interpretation Comments Bili Total (test code = Bili Total) 0.3 0.2-1.3 [facility] [id number] 02:42:00 Test Item Value Reference Range Interpretation Comments Alk Phos (test code = Alk Phos) 203 39-136 [facility] [id number] 02:42:00 Test Item Value Reference Range Interpretation Comments AST (test code = AST) 194 See_Comment [Auto mated message] The system which ge nerated this result transmit garrett reference range : <=37. The reference range was not used to interpr et this result as cassie l/abnormal. [facility] [employer] [id number] 02:42:00 Test Item Value Reference Range Interpretation Comments ALT (test code = ALT) 109 See_Comment [Auto mated message] The system which ge nerated this result transmit garrett reference range : <=65. The reference range was not used to interpr et this result as cassie l/abnormal. [facility] [employer] PJATB6736-03-19 02:42:00 Test Item Value Reference Range Interpretation Comments Bili Direct (test code 0.1 See_Comment [Aut omated message] The = Bili Direct) system which generated this result tra nsmitted reference range : <=0.3. The reference r ondina was not used to int erpret this result as cassie l/abnormal. [facility]2019-06-14 02:42:00 Test Item Value Reference Range Interpretation Comments Albumin Lvl (test code = Albumin Lvl) 3.0 3.5-5.0 [facility]2019-06-14 02:42:00 Test Item Value Reference Range Interpretation Comments Total Protein (test code = Total 6.9 6.4-8.4 Protein) [facility]2019-06-14 02:42:00 Test Item Value Reference Range Interpretation Comments Globulin (test code = Globulin) 3.9 2.7-4.2 [facility]2019-06-14 02:42:00 Test Item Value Reference Range Interpretation Comments A/G Ratio (test code = A/G Ratio) 0.8 1 0.7-1.6 [facility]2019-06-14 02:42:00 Test Item Value Reference Range Interpretation Comments eGFR (test code = eGFR) 68 [facility]2019-06-14 02:42:00 Test Item Value Reference Range Interpretation Comments Potassium Lvl (test code = Potassium 3.9 3.5-5.1 Lvl) [facility]2019-06-14 02:42:00 Test Item Value Reference Range Interpretation Comments Sodium Lvl (test code = Sodium Lvl) 139 135-145 [facility]2019-06-14 02:42:00 Test Item Value Reference Range Interpretation Comments Calcium Lvl (test code = Calcium Lvl) 8.6 8.5-10.5 [facility]2019-06-14 02:42:00 Test Item Value Reference Range Interpretation Comments CO2 (test code = CO2) 25 24-32 [facility]2019-06-14 02:42:00 Test Item Value Reference Range Interpretation Comments Chloride Lvl (test code = Chloride Lvl) 105 95-109 [facility]2019-06-14 02:42:00 Test Item Value Reference Range Interpretation Comments Creatinine Lvl (test code = Creatinine 1.16 0.50-1.40 Lvl) [facility]2019-06-14 02:42:00 Test Item Value Reference Range Interpretation Comments BUN (test code = BUN) 21 7-22 [facility]2019-06-14 02:42:00 Test Item Value Reference Range Interpretation Comments Glucose Lvl (test code = Glucose Lvl) 88 70-99 [facility]2019-06-14 02:42:00 Test Item Value Reference Range Interpretation Comments AGAP (test code = AGAP) 12.9 10.0-20.0 [facility] StationLljwjbmLHNVGNPTEL6453-26-88 02:42:00 Test Item Value Reference Range Interpretation Comments RDW (test code = RDW) 19.1 11.5-14.5 [facility] StationAdqkocfSBSRVPOVUU5695-99-95 02:42:00 Test Item Value Reference Range Interpretation Comments MPV (test code = MPV) 8.0 7.4-10.4 [facility] StationCqnpzvgZFIILAJNGT1254-98-30 02:42:00 Test Item Value Reference Range Interpretation Comments Platelet (test code = Platelet) 259 133-450 [facility] StationPanhjktSWTBZCJRNY3026-72-64 02:42:00 Test Item Value Reference Range Interpretation Comments MCHC (test code = MCHC) 31.2 32.0-36.0 [facility] StationLytyqavQIMRFUPGFP2727-04-71 02:42:00 Test Item Value Reference Range Interpretation Comments Hct (test code = Hct) 33.3 42.0-54.0 [facility] StationQiuklfqHBYOTYQPTO6688-77-23 02:42:00 Test Item Value Reference Range Interpretation Comments Hgb (test code = Hgb) 10.4 14.0-18.0 [facility] StationNcpxzaiYKVULOBIDE8586-09-13 02:42:00 Test Item Value Reference Range Interpretation Comments RBC (test code = RBC) 4.26 4.70-6.10 [facility] StationDgubznoNMCDXGCZNP5070-74-01 02:42:00 Test Item Value Reference Range Interpretation Comments MCV (test code = MCV) 78.2 80.0-94.0 [facility] StationCepewwdACYVAMHSME8058-62-79 02:42:00 Test Item Value Reference Range Interpretation Comments MCH (test code = MCH) 24.4 pg 27.0-31.0 [facility] StationKexthfsOTPPURLRWT5078-23-65 02:42:00 Test Item Value Reference Range Interpretation Comments WBC (test code = WBC) 6.0 3.7-10.4 [facility] StationXpyzqvaJEYORMCAYU2515-44-72 02:42:00 Test Item Value Reference Range Interpretation Comments Neutrophils # (test code = Neutrophils 4.0 1.5-8.1 #) [facility] StationStvtyxpIORWHMEBBW4171-72-69 02:42:00 Test Item Value Reference Range Interpretation Comments Lymphocytes # (test code = Lymphocytes 1.3 1.0-5.5 #) [facility] StationBwuzkpaQLOCUHXCWV4545-68-89 02:42:00 Test Item Value Reference Range Interpretation Comments Basophils (test code = 1.4 See_Comment [Aut omated message] The Basophils) system which ge nerated this result tra nsmitted reference range : <=1.0. The reference r ondina was not used to int erpret this result as normal/abnormal . [facility] StationBuncktxRYTSAEQDUH3864-83-44 02:42:00 Test Item Value Reference Range Interpretation Comments Eosinophils (test code = 3.5 See_Comment [A utomated message] The Eosinophils) system which ge nerated this result tra nsmitted reference range : <=4.0. The reference r ondina was not used to int erpret this result as normal/abnormal . [facility] StationXrbihinOKRBSWGGEV1134-76-81 02:42:00 Test Item Value Reference Range Interpretation Comments Lymphocytes (test code = Lymphocytes) 21.4 20.0-40.0 [facility] StationUhkgfbpCWEHHIUIYZ3975-85-17 02:42:00 Test Item Value Reference Range Interpretation Comments Monocytes (test code = Monocytes) 7.3 2.0-12.0 [facility] StationOiuurnbIHNZYEGSYJ6543-39-47 02:42:00 Test Item Value Reference Range Interpretation Comments Basophils # (test code 0.1 See_Comment [Aut omated message] The = Basophils #) system which generated this result tra nsmitted reference range : <=0.2. The reference r ondina was not used to int erpret this result as normal/abnormal . [facility] StationTqwjricOZCNWNBXRR5626-39-43 02:42:00 Test Item Value Reference Range Interpretation Comments Microcyte (test code = 1+ *ABN*(08/15/18 Microcyte) 9:42 PM) [facility] StationJcshwrjEOHVERQUSU1569-13-20 02:42:00 Test Item Value Reference Range Interpretation Comments Monocytes # (test code 0.4 See_Comment [Aut omated message] The = Monocytes #) system which generated this result tra nsmitted reference range : <=0.8. The reference r ondina was not used to int erpret this result as normal/abnormal . [facility] StationLebrwuzGFTFCIFKRY1697-39-04 02:42:00 Test Item Value Reference Range Interpretation Comments Eosinophils # (test code 0.2 See_Comment [A utomated message] The = Eosinophils #) system whic h generated this result tra nsmitted reference range : <=0.5. The reference r ondina was not used to int erpret this result as normal/abnormal . [facility] StationVlbpwyqHDHQSODAQD8822-64-25 02:42:00 Test Item Value Reference Range Interpretation Comments Segs (test code = Segs) 66.4 45.0-75.0 [facility] StationJulznbcQGTBUTGCPJ0530-74-64 02:42:00 Test Item Value Reference Range Interpretation Comments PT (test code = PT) 13.5 s 12.0-14.7 [facility] StationGidgcqwYMTCIMMCNN5812-92-10 02:42:00 Test Item Value Reference Range Interpretation Comments PTT (test code = PTT) 28.8 s 22.9-35.8 [facility] StationRyqhvdoUIAJMHSSIZ7118-42-58 02:42:00 Test Item Value Reference Range Interpretation Comments INR (test code = INR) 1.05 1 0.85-1.17 [facility] RockCulture: Otkimdfbl3733-57-27 20:00:00 Test Item Value Reference Range Interpretation Comments Culture: Anaerobic (test Culture In Progress code = Culture: Anaerobic) [facility] RockAventones Stain Wdywqp2144-74-87 20:00:00 Test Item Value Reference Range Interpretation Comments Gram Stain Report Rare WBC's No Organisms (test code = Gram Seen Stain Report) [facility] RockCulture: Aspirate/Body Fluid/Ohatzw0658-81-04 20:00:00 Test Item Value Reference Range Interpretation Comments Culture: Aspirate/Body No Growth; Holding Fluid/Tissue (test code = Culture: Aspirate/Body Fluid/Tissue) [facility] RockCulture: Buasqjcgu7473-82-64 15:00:00 Test Item Value Reference Range Interpretation Comments Culture: Anaerobic No Anaerobes Isolated (test code = Culture: After 2 Days Anaerobic) [facility] RockGram Stain Ylfenq5303-17-38 15:00:00 Test Item Value Reference Range Interpretation Comments Gram Stain Report No Wbc'S Or Organisms (test code = Gram Seen Stain Report) [facility] RockCulture: Aspirate/Body Fluid/Dkolqd3325-85-01 15:00:00 Test Item Value Reference Range Interpretation Comments Culture: 48 Hour Report - No Aspirate/Body Growth, Holding Fluid/Tissue (test code = Culture: Aspirate/Body Fluid/Tissue) [facility]2019-04-01 10:50:00 Test Item Value Reference Range Interpretation Comments Calcium Lvl (test code = Calcium Lvl) 7.7 8.5-10.5 [facility]2019-04-01 10:50:00 Test Item Value Reference Range Interpretation Comments Potassium Lvl (test code = Potassium 3.6 3.5-5.1 Lvl) [facility]2019-04-01 10:50:00 Test Item Value Reference Range Interpretation Comments Chloride Lvl (test code = Chloride Lvl) 113 95-109 [facility]2019-04-01 10:50:00 Test Item Value Reference Range Interpretation Comments Sodium Lvl (test code = Sodium Lvl) 144 135-145 [facility]2019-04-01 10:50:00 Test Item Value Reference Range Interpretation Comments Creatinine Lvl (test code = Creatinine 0.86 0.50-1.40 Lvl) [facility]2019-04-01 10:50:00 Test Item Value Reference Range Interpretation Comments eGFR (test code = eGFR) 94 [facility]2019-04-01 10:50:00 Test Item Value Reference Range Interpretation Comments CO2 (test code = CO2) 22 24-32 [facility]2019-04-01 10:50:00 Test Item Value Reference Range Interpretation Comments Glucose Lvl (test code = Glucose Lvl) 89 70-99 [facility]2019-04-01 10:50:00 Test Item Value Reference Range Interpretation Comments BUN (test code = BUN) 10 7-22 [facility]2019-04-01 10:50:00 Test Item Value Reference Range Interpretation Comments AGAP (test code = AGAP) 12.6 10.0-20.0 [facility] RockCARDIAC NXHOWQG0789-14-59 20:59:00 Test Item Value Reference Range Interpretation Comments BNP (test code = BNP) 454 [facility] RockCARTAY[facility] WQEGGQJ6600-42-46 20:59:00 Test Item Value Reference Range Interpretation Comments Troponin-I (test code no gt See_Comment [Auto mated message] The = Troponin-I) system which g enerated this result transmit garrett reference range : <=0.40. The reference r ondina was not used to interpr et this result as cassie l/abnormal. [facility] QKMKVOU7478-26-72 20:59:00 Test Item Value Reference Range Interpretation Comments Total CK (test code = Total CK) 38 12-191 [facility]GyiuzejWGHJCFOMUPNV1983-44-05 20:59:00 Test Item Value Reference Range Interpretation Comments AGAP (test code = AGAP) 9.7 10.0-20.0 [facility] HospitalGmqurobQSPLGURIQXNK8821-53-77 20:59:00 Test Item Value Reference Range Interpretation Comments B/C Ratio (test code = B/C Ratio) 11 1 6-25 [facility] HospitalLspgmuuXFSSKKAAPMQA8496-07-65 20:59:00 Test Item Value Reference Range Interpretation Comments A/G Ratio (test code = A/G Ratio) 0.6 1 0.7-1.6 [facility] HospitalEhpuwhvWMGWGIWIHZGI5170-14-46 20:59:00 Test Item Value Reference Range Interpretation Comments Globulin (test code = Globulin) 4.2 2.7-4.2 [facility] HospitalLdsxnseBWZTXTFATCDB5847-03-01 20:59:00 Test Item Value Reference Range Interpretation Comments Albumin Lvl (test code = Albumin Lvl) 2.7 3.5-5.0 [facility] HospitalNdlskyaDRXIHFWJNKJI1211-05-14 20:59:00 Test Item Value Reference Range Interpretation Comments Glucose Lvl (test code = Glucose Lvl) 98 70-99 [facility] HospitalHjntlphANWAJIWPHOIR1384-60-41 20:59:00 Test Item Value Reference Range Interpretation Comments CO2 (test code = CO2) 26 24-32 [facility] HospitalUcscnyxAXYWWQTICKLY7605-37-35 20:59:00 Test Item Value Reference Range Interpretation Comments BUN (test code = BUN) 11 7-22 [facility] HospitalEqqyckcBDTXTHLQNIRL0107-31-62 20:59:00 Test Item Value Reference Range Interpretation Comments eGFR (test code = eGFR) 82 [facility] HospitalEobqdxfDTFBCITOJEUL1836-15-60 20:59:00 Test Item Value Reference Range Interpretation Comments AST (test code = AST) 6 See_Comment [Auto mated message] The system which ge nerated this result transmit garrett reference range : <=37. The reference range was not used to interpr et this result as cassie l/abnormal. [facility] HospitalGkiayvhREALCOWKGHPW4319-02-98 20:59:00 Test Item Value Reference Range Interpretation Comments ALT (test code = ALT) 13 See_Comment [Auto mated message] The system which ge nerated this result transmit garrett reference range : <=65. The reference range was not used to interpr et this result as cassie l/abnormal. [facility] HospitalVpcqqalIYYIBOIDKQKP7981-60-11 20:59:00 Test Item Value Reference Range Interpretation Comments Creatinine Lvl (test code = Creatinine 1.00 0.50-1.40 Lvl) [facility] HospitalQunsoziPCHPRYFQGJNT1997-89-19 20:59:00 Test Item Value Reference Range Interpretation Comments Bili Total (test code = Bili Total) 0.1 0.2-1.3 [facility] HospitalCedctpsVDUFJLIUZIMT0243-81-60 20:59:00 Test Item Value Reference Range Interpretation Comments Total Protein (test code = Total 6.9 6.4-8.4 Protein) [facility] HospitalBoxwwfmBVTFNJTLUEZU7926-93-40 20:59:00 Test Item Value Reference Range Interpretation Comments Calcium Lvl (test code = Calcium Lvl) 8.2 8.5-10.5 [facility] HospitalRofqswvMXVMSAXWLOAH7348-96-61 20:59:00 Test Item Value Reference Range Interpretation Comments Alk Phos (test code = Alk Phos) 122 39-136 [facility] HospitalRahpvboWSSILWTZQUEV9409-25-48 20:59:00 Test Item Value Reference Range Interpretation Comments Sodium Lvl (test code = Sodium Lvl) 145 135-145 [facility] HospitalHskznnrURNXMESXTBLC9629-78-11 20:59:00 Test Item Value Reference Range Interpretation Comments Chloride Lvl (test code = Chloride Lvl) 113 95-109 [facility] HospitalThfsyvwJBXXSFSJQPSZ4166-05-25 20:59:00 Test Item Value Reference Range Interpretation Comments Potassium Lvl (test code = Potassium 3.7 3.5-5.1 Lvl) [facility] RockAcydguyKULKGOESJJ5040-73-53 20:59:00 Test Item Value Reference Range Interpretation Comments PT (test code = PT) 13.3 s 12.0-14.7 [facility] StationQaninkhUMSFQWDQAK2273-08-49 20:59:00 Test Item Value Reference Range Interpretation Comments INR (test code = INR) 1.03 1 0.85-1.17 [facility] StationIkgwxztVSVGQWKSGX7109-51-63 20:59:00 Test Item Value Reference Range Interpretation Comments PTT (test code = PTT) 31.9 s 22.9-35.8 [facility] StationKwhqkkkPXDJXAGLWO0354-24-24 20:59:00 Test Item Value Reference Range Interpretation Comments MPV (test code = MPV) 8.1 7.4-10.4 [facility] StationExqmillNXHTOJUQLO1134-58-69 20:59:00 Test Item Value Reference Range Interpretation Comments MCHC (test code = MCHC) 30.8 32.0-36.0 [facility] StationFkkgizfSQFOCCLROI6841-55-98 20:59:00 Test Item Value Reference Range Interpretation Comments MCV (test code = MCV) 81.3 80.0-94.0 [facility] StationVmwescjQNQUOSBUGV8043-88-60 20:59:00 Test Item Value Reference Range Interpretation Comments MCH (test code = MCH) 25.1 pg 27.0-31.0 [facility] StationQgyuowrIRIBKTBCBF9163-07-90 20:59:00 Test Item Value Reference Range Interpretation Comments RDW (test code = RDW) 18.6 11.5-14.5 [facility] StationRkiacffRIHOXECPIL3404-16-80 20:59:00 Test Item Value Reference Range Interpretation Comments RBC (test code = RBC) 3.52 4.70-6.10 [facility] StationUhntlsxKJTFYFUQQX1631-45-78 20:59:00 Test Item Value Reference Range Interpretation Comments Hgb (test code = Hgb) 8.8 14.0-18.0 [facility] StationCeceejaRNIXWYPCCT6783-22-20 20:59:00 Test Item Value Reference Range Interpretation Comments WBC (test code = WBC) 6.0 3.7-10.4 [facility] StationMxrmgvgEKXDYDIFER9364-59-16 20:59:00 Test Item Value Reference Range Interpretation Comments Hct (test code = Hct) 28.6 42.0-54.0 [facility] StationMpxursrFGPPBXKLPZ6005-55-10 20:59:00 Test Item Value Reference Range Interpretation Comments Platelet (test code = Platelet) 390 133-450 [facility] StationXtbvmtvUVOLKAKBRT3876-33-93 20:59:00 Test Item Value Reference Range Interpretation Comments Monocytes (test code = Monocytes) 10.1 2.0-12.0 [facility] StationWqcnyouRKVBEVYIDJ6267-13-72 20:59:00 Test Item Value Reference Range Interpretation Comments Lymphocytes (test code = Lymphocytes) 16.4 20.0-40.0 [facility] StationWymcadjKOQSLICBXL7889-09-52 20:59:00 Test Item Value Reference Range Interpretation Comments Anisocyte (test code = 1+ *ABN*(06/02/18 Anisocyte) 3:59 PM) [facility] StationNboqmhaRXYLZLLNON0205-27-98 20:59:00 Test Item Value Reference Range Interpretation Comments Eosinophils # (test code 0.2 See_Comment [A utomated message] The = Eosinophils #) system wh h generated this result tra nsmitted reference range : <=0.5. The reference r ondina was not used to int erpret this result as normal/abnormal . [facility] StationDnpfpusSXKVPGUBTA8468-30-29 20:59:00 Test Item Value Reference Range Interpretation Comments Neutrophils # (test code = Neutrophils 4.1 1.5-8.1 #) [facility] StationGcdlgnlAWDUSZHBOJ1706-82-73 20:59:00 Test Item Value Reference Range Interpretation Comments Basophils (test code = 0.8 See_Comment [Aut omated message] The Basophils) system which ge nerated this result tra nsmitted reference range : <=1.0. The reference r ondina was not used to int erpret this result as normal/abnormal . [facility] StationIvvcpebMZVJGHRVEC4284-69-80 20:59:00 Test Item Value Reference Range Interpretation Comments Eosinophils (test code = 4.0 See_Comment [A utomated message] The Eosinophils) system which ge nerated this result tra nsmitted reference range : <=4.0. The reference r ondina was not used to int erpret this result as normal/abnormal . [facility] StationEdkvwqvHMVGMFKNRW8049-19-76 20:59:00 Test Item Value Reference Range Interpretation Comments Segs (test code = Segs) 68.7 45.0-75.0 [facility] StationEibhsuiLSSZNUDVLA6737-04-38 20:59:00 Test Item Value Reference Range Interpretation Comments Hypochrom (test code = 2+ (06/02/18 3:59 PM) Hypochrom) [facility] StationOtokjlrQZTTOSNNZD4163-63-18 20:59:00 Test Item Value Reference Range Interpretation Comments Large Plt (test code Moderate *ABN*(06/02/18 = Large Plt) 3:59 PM) [facility] StationVcswbbaVTOFKSERVF6340-36-86 20:59:00 Test Item Value Reference Range Interpretation Comments Lymphocytes # (test code = Lymphocytes 1.0 1.0-5.5 #) [facility] StationWtngyxcIZIKGVRMGC2503-82-73 20:59:00 Test Item Value Reference Range Interpretation Comments Monocytes # (test code 0.6 See_Comment [Aut omated message] The = Monocytes #) system which generated this result tra nsmitted reference range : <=0.8. The reference r ondina was not used to int erpret this result as normal/abnormal . [facility] StationHwsqewpNWRRRPUSWD0477-84-68 14:40:00 Test Item Value Reference Range Interpretation Comments Platelet (test code = Platelet) 233 133-450 [facility] StationTzrlqvnUSLDZEIEMC8074-55-95 14:40:00 Test Item Value Reference Range Interpretation Comments MPV (test code = MPV) 8.3 7.4-10.4 [facility] StationGaszcipZNSHZLSVNR0251-93-33 14:40:00 Test Item Value Reference Range Interpretation Comments MCHC (test code = MCHC) 32.2 32.0-36.0 [facility] StationRxbenxiSYMMJSOKTK5819-82-21 14:40:00 Test Item Value Reference Range Interpretation Comments RDW (test code = RDW) 19.0 11.5-14.5 [facility] StationQvkdartUQWAYZHABL8952-19-32 14:40:00 Test Item Value Reference Range Interpretation Comments Hgb (test code = Hgb) 8.8 14.0-18.0 [facility] StationSrpzzukUVLVYEZJHE1596-25-30 14:40:00 Test Item Value Reference Range Interpretation Comments RBC (test code = RBC) 3.40 4.70-6.10 [facility] StationTpfyyjrSTSBSGNPCC6006-48-24 14:40:00 Test Item Value Reference Range Interpretation Comments MCV (test code = MCV) 80.1 80.0-94.0 [facility] StationQjarhtlGIUSAMAFZT1972-40-86 14:40:00 Test Item Value Reference Range Interpretation Comments MCH (test code = MCH) 25.8 pg 27.0-31.0 [facility] StationQxbirbiXBHURKEPCV7881-34-34 14:40:00 Test Item Value Reference Range Interpretation Comments Hct (test code = Hct) 27.3 42.0-54.0 [facility] StationLzdobazKRRFVKSKZZ4861-07-99 14:40:00 Test Item Value Reference Range Interpretation Comments WBC (test code = WBC) 7.3 3.7-10.4 [facility] StationRsuolreDLBIAJTKXD2427-33-73 14:40:00 Test Item Value Reference Range Interpretation Comments Basophils (test code = 1.3 See_Comment [Aut omated message] The Basophils) system which ge nerated this result tra nsmitted reference range : <=1.0. The reference r ondina was not used to int erpret this result as normal/abnormal . [facility] StationQfawnifJSTOYWVZXS4345-54-82 14:40:00 Test Item Value Reference Range Interpretation Comments Neutrophils # (test code = Neutrophils 4.6 1.5-8.1 #) [facility] StationHpgkzmzXYBYUELDCD5837-12-19 14:40:00 Test Item Value Reference Range Interpretation Comments Eosinophils (test code = 7.5 See_Comment [A utomated message] The Eosinophils) system which ge nerated this result tra nsmitted reference range : <=4.0. The reference r ondina was not used to int erpret this result as normal/abnormal . [facility] StationOiskuyhMTADIOVYKQ4710-24-30 14:40:00 Test Item Value Reference Range Interpretation Comments Monocytes (test code = Monocytes) 8.8 2.0-12.0 [facility] StationIxhblkcCBWQDUEKGC9749-82-17 14:40:00 Test Item Value Reference Range Interpretation Comments Segs (test code = Segs) 63.4 45.0-75.0 [facility] StationIxaoughTQWWRHXFHN8661-51-25 14:40:00 Test Item Value Reference Range Interpretation Comments Lymphocytes (test code = Lymphocytes) 19.0 20.0-40.0 [facility] StationTqufnvlORZMYVFMVH2628-31-06 14:40:00 Test Item Value Reference Range Interpretation Comments Eosinophils # (test code 0.5 See_Comment [A utomated message] The = Eosinophils #) system whic h generated this result tra nsmitted reference range : <=0.5. The reference r ondina was not used to int erpret this result as normal/abnormal . [place] 445409-03-19 14:40:00 Test Item Value Reference Range Interpretation Comments Basophils # (test code 0.1 See_Comment [Aut omated message] The = Basophils #) system which generated this result tra nsmitted reference range : <=0.2. The reference r ondina was not used to int erpret this result as normal/abnormal . [facility] StationWdnbbcmUPFXCCYTMC5824-78-22 14:40:00 Test Item Value Reference Range Interpretation Comments Monocytes # (test code 0.6 See_Comment [Aut omated message] The = Monocytes #) system which generated this result tra nsmitted reference range : <=0.8. The reference r ondina was not used to int erpret this result as normal/abnormal . [facility] StationDmneyhcWAHAHUETMX1159-02-71 14:40:00 Test Item Value Reference Range Interpretation Comments Lymphocytes # (test code = Lymphocytes 1.4 1.0-5.5 #) [facility]2019-03-19 11:30:00 Test Item Value Reference Range Interpretation Comments Calcium Lvl (test code = Calcium Lvl) 8.3 8.5-10.5 [place] [id number] 11:30:00 Test Item Value Reference Range Interpretation Comments Potassium Lvl (test code = Potassium 4.3 3.5-5.1 Lvl) [facility]2019-03-19 11:30:00 Test Item Value Reference Range Interpretation Comments Sodium Lvl (test code = Sodium Lvl) 143 135-145 [facility]2019-03-19 11:30:00 Test Item Value Reference Range Interpretation Comments Chloride Lvl (test code = Chloride Lvl) 108 95-109 [facility]2019-03-19 11:30:00 Test Item Value Reference Range Interpretation Comments eGFR (test code = eGFR) 105 [facility]2019-03-19 11:30:00 Test Item Value Reference Range Interpretation Comments Creatinine Lvl (test code = Creatinine 0.66 0.50-1.40 Lvl) [facility]2019-03-19 11:30:00 Test Item Value Reference Range Interpretation Comments CO2 (test code = CO2) 29 24-32 [facility]2019-03-19 11:30:00 Test Item Value Reference Range Interpretation Comments BUN (test code = BUN) 14 7-22 [facility] CallYourPriceCHEM [id number] 11:30:00 Test Item Value Reference Range Interpretation Comments Glucose Lvl (test code = Glucose Lvl) 79 70-99 [facility] [employer]YourPriceCHEM [id number] 11:30:00 Test Item Value Reference Range Interpretation Comments AGAP (test code = AGAP) 10.3 10.0-20.0 [facility] CampusEmpqswrXGJSRRPYYC2669-92-70 11:30:00 Test Item Value Reference Range Interpretation Comments Vanco Tr TND (test code = Vanco Tr TND) unk [facility] CampusNqhbsqxKBYDDBXLKL7331-49-81 11:30:00 Test Item Value Reference Range Interpretation Comments Vanco Tr (test code = Vanco Tr) 12.8 [facility] [employer]annCARahoyDocAC [id number] 17:35:00 Test Item Value Reference Range Interpretation Comments Troponin-I (test code no gt See_Comment [Auto mated message] The = Troponin-I) system which g enerated this result transmit garrett reference range : <=0.40. The reference r ondina was not used to interpr et this result as cassie l/abnormal. [facility] CallYourPriceCARahoyDocAC [id number] 17:35:00 Test Item Value Reference Range Interpretation Comments Total CK (test code = Total CK) 33 -191 [facility] [employer]AC SOJRLQL1051-58-50 12:45:00 Test Item Value Reference Range Interpretation Comments Troponin-I (test code no gt See_Comment [Auto mated message] The = Troponin-I) system which g enerated this result transmit garrett reference range : <=0.40. The reference r ondina was not used to interpr et this result as cassie l/abnormal. [facility] [employer]annCARDIAC [id number] 12:45:00 Test Item Value Reference Range Interpretation Comments Total CK (test code = Total CK) 33 12-191 [facility] SnvudhvZDWRRBDAPSRC2387-36-85 06:11:00 Test Item Value Reference Range Interpretation Comments AGAP (test code = AGAP) 9.1 10.0-20.0 [facility] FcqazyySHTQSHQMWDMX0987-42-27 06:11:00 Test Item Value Reference Range Interpretation Comments Sodium Lvl (test code = Sodium Lvl) 144 135-145 [facility] HospitalYicvvxvBYMWXXCOOOSW3986-63-53 06:11:00 Test Item Value Reference Range Interpretation Comments Chloride Lvl (test code = Chloride Lvl) 108 95-109 [facility] HospitalZkofdqzEFWDEKOZMRSN3118-77-93 06:11:00 Test Item Value Reference Range Interpretation Comments Potassium Lvl (test code = Potassium 4.1 3.5-5.1 Lvl) [facility] HospitalImcrgemBJQRSQCPLCPR6165-55-76 06:11:00 Test Item Value Reference Range Interpretation Comments CO2 (test code = CO2) 31 24-32 [facility] HospitalPwmmtflKRUYLIBGNVTV5871-79-01 06:11:00 Test Item Value Reference Range Interpretation Comments BUN (test code = BUN) 15 7-22 [facility] HospitalLxljrefCPXEQOLMKDES6458-70-51 06:11:00 Test Item Value Reference Range Interpretation Comments Glucose Lvl (test code = Glucose Lvl) 96 70-99 [facility] HospitalOoggaurGHQYDXHHIXRR4303-18-22 06:11:00 Test Item Value Reference Range Interpretation Comments Creatinine Lvl (test code = Creatinine 0.72 0.50-1.40 Lvl) [facility] HospitalInkqjkrQFOXSYFBQVDA1479-37-31 06:11:00 Test Item Value Reference Range Interpretation Comments eGFR (test code = eGFR) 102 [facility] HospitalAgencydNNPAXZYECMZZ8310-66-13 06:11:00 Test Item Value Reference Range Interpretation Comments Calcium Lvl (test code = Calcium Lvl) 8.3 8.5-10.5 [facility] StationOaremmgBLMZPTYJZG6668-70-26 06:11:00 Test Item Value Reference Range Interpretation Comments MPV (test code = MPV) 8.0 7.4-10.4 [facility] StationUaudumhBIQAUUVUEZ9781-76-58 06:11:00 Test Item Value Reference Range Interpretation Comments Platelet (test code = Platelet) 217 133-450 [facility] StationKokyujvVIHUWPTMRA5484-76-95 06:11:00 Test Item Value Reference Range Interpretation Comments RDW (test code = RDW) 18.6 11.5-14.5 [facility] StationAkqofnkDPNQFDCKRI5511-85-59 06:11:00 Test Item Value Reference Range Interpretation Comments MCH (test code = MCH) 26.0 pg 27.0-31.0 [facility] StationCueevgmNTDOUXSTYM1583-76-64 06:11:00 Test Item Value Reference Range Interpretation Comments MCV (test code = MCV) 81.5 80.0-94.0 [facility] StationBydjhqtHORTGKTZMK5452-40-39 06:11:00 Test Item Value Reference Range Interpretation Comments MCHC (test code = MCHC) 31.9 32.0-36.0 [facility] StationDpjxzjrTNMHZTOEOF6910-18-34 06:11:00 Test Item Value Reference Range Interpretation Comments RBC (test code = RBC) 3.16 4.70-6.10 [facility] StationNsrjqyaEXONOEXCXF6549-69-65 06:11:00 Test Item Value Reference Range Interpretation Comments Hct (test code = Hct) 25.8 42.0-54.0 [facility] StationOngsffaWEOGOVABJQ8696-55-47 06:11:00 Test Item Value Reference Range Interpretation Comments Hgb (test code = Hgb) 8.2 14.0-18.0 [facility] StationMowatmxTZXQMNMCXZ5276-23-10 06:11:00 Test Item Value Reference Range Interpretation Comments WBC (test code = WBC) 7.5 3.7-10.4 [facility] StationRxbmfqaVYHEKWRIGJ9621-03-31 06:11:00 Test Item Value Reference Range Interpretation Comments Monocytes # (test code 0.7 See_Comment [Aut omated message] The = Monocytes #) system which generated this result tra nsmitted reference range : <=0.8. The reference r ondina was not used to int erpret this result as normal/abnormal . [facility] StationFxldnltPTBKQUJGVI1198-06-92 06:11:00 Test Item Value Reference Range Interpretation Comments Basophils # (test code 0.1 See_Comment [Aut omated message] The = Basophils #) system which generated this result tra nsmitted reference range : <=0.2. The reference r ondina was not used to int erpret this result as normal/abnormal . [facility] StationPsdxqosYWKYJZGHII8002-25-59 06:11:00 Test Item Value Reference Range Interpretation Comments Eosinophils # (test code 0.4 See_Comment [A utomated message] The = Eosinophils #) system whic h generated this result tra nsmitted reference range : <=0.5. The reference r ondina was not used to int erpret this result as normal/abnormal . [facility] StationFgfmjdjOZRZSIEQGL1764-50-30 06:11:00 Test Item Value Reference Range Interpretation Comments Lymphocytes # (test code = Lymphocytes 1.6 1.0-5.5 #) [facility] StationNvpnxiyYRVLVMXKJG7674-72-32 06:11:00 Test Item Value Reference Range Interpretation Comments Neutrophils # (test code = Neutrophils 4.8 1.5-8.1 #) [facility] StationHnbuxdeMOPZNPLBJJ8332-28-57 06:11:00 Test Item Value Reference Range Interpretation Comments Basophils (test code = 1.1 See_Comment [Aut omated message] The Basophils) system which ge nerated this result tra nsmitted reference range : <=1.0. The reference r ondina was not used to int erpret this result as normal/abnormal . [facility] StationLuznbfpMCORATDJDD2211-42-70 06:11:00 Test Item Value Reference Range Interpretation Comments Eosinophils (test code = 5.2 See_Comment [A utomated message] The Eosinophils) system which ge nerated this result tra nsmitted reference range : <=4.0. The reference r ondina was not used to int erpret this result as normal/abnormal . [facility] StationHawumgdKSDKMQXDMX4087-50-83 06:11:00 Test Item Value Reference Range Interpretation Comments Monocytes (test code = Monocytes) 9.1 2.0-12.0 [facility] StationHtsinaaLAGTQXUKQW3820-21-84 06:11:00 Test Item Value Reference Range Interpretation Comments Lymphocytes (test code = Lymphocytes) 21.2 20.0-40.0 [facility] StationVsfiqijNWETKBHKXA1209-67-08 06:11:00 Test Item Value Reference Range Interpretation Comments Segs (test code = Segs) 63.4 45.0-75.0 [place] [id number] 06:11:00 Test Item Value Reference Range Interpretation Comments Vanco Tr TND (test code = Vanco Tr 0030 1 TND) [place] [id number] 06:11:00 Test Item Value Reference Range Interpretation Comments Vanco Tr (test code = Vanco Tr) 7.3 [facility]2019-03-17 10:50:00 Test Item Value Reference Range Interpretation Comments Magnesium Lvl (test code = Magnesium 1.8 1.8-2.4 Lvl) [facility]2019-03-17 10:50:00 Test Item Value Reference Range Interpretation Comments Phosphorus (test code = Phosphorus) 3.3 2.5-4.5 [facility] HospitalFmnlaulFNLDAAZJNBWQ4397-99-03 10:50:00 Test Item Value Reference Range Interpretation Comments AGAP (test code = AGAP) 9.9 10.0-20.0 [facility] HospitalAfiisweAAKJQNZYZYIR8878-33-76 10:50:00 Test Item Value Reference Range Interpretation Comments Calcium Lvl (test code = Calcium Lvl) 7.9 8.5-10.5 [facility] HospitalYfxswfsORYUJZYIXEPL2960-09-54 10:50:00 Test Item Value Reference Range Interpretation Comments eGFR (test code = eGFR) 101 [facility] HospitalRioucghJAOZZNKAAWJO0329-34-80 10:50:00 Test Item Value Reference Range Interpretation Comments Creatinine Lvl (test code = Creatinine 0.72 0.50-1.40 Lvl) [facility] HospitalKzkvmmpTEDBAEHSSLUN8037-38-86 10:50:00 Test Item Value Reference Range Interpretation Comments Sodium Lvl (test code = Sodium Lvl) 143 135-145 [facility] HospitalBnqgdfaDZGCRDDSAFRT5986-90-70 10:50:00 Test Item Value Reference Range Interpretation Comments Potassium Lvl (test code = Potassium 3.9 3.5-5.1 Lvl) [facility] HospitalCcsdzfzVGNVBWPCEIAB1166-44-12 10:50:00 Test Item Value Reference Range Interpretation Comments Chloride Lvl (test code = Chloride Lvl) 109 95-109 [facility] HospitalIvumldwRNAJVSZSIKYI0204-28-79 10:50:00 Test Item Value Reference Range Interpretation Comments BUN (test code = BUN) 15 7-22 [facility] HospitalFfvqpxdJHLXJZPAIHUK5257-99-54 10:50:00 Test Item Value Reference Range Interpretation Comments CO2 (test code = CO2) 28 24-32 [facility] HospitalGhcaiuzHJDJIYMUSVPA0173-27-41 10:50:00 Test Item Value Reference Range Interpretation Comments Glucose Lvl (test code = Glucose Lvl) 121 70-99 [facility] StationQqnkirfKTMRHBSBWP5403-07-33 10:50:00 Test Item Value Reference Range Interpretation Comments Basophils # (test code 0.1 See_Comment [Aut omated message] The = Basophils #) system which generated this result tra nsmitted reference range : <=0.2. The reference r ondina was not used to int erpret this result as normal/abnormal . [facility] StationHpsugicYLGOGPOOGX3825-71-00 10:50:00 Test Item Value Reference Range Interpretation Comments Neutrophils # (test code = Neutrophils 4.6 1.5-8.1 #) [facility] StationEckzmslTDQUACGBFJ0741-47-30 10:50:00 Test Item Value Reference Range Interpretation Comments Lymphocytes # (test code = Lymphocytes 1.5 1.0-5.5 #) [facility] StationXtswouvQNHLYMFUBP8385-67-74 10:50:00 Test Item Value Reference Range Interpretation Comments Lymphocytes (test code = Lymphocytes) 22.0 20.0-40.0 [facility] StationHhlxvawFYBURPKPWS9746-67-66 10:50:00 Test Item Value Reference Range Interpretation Comments Monocytes (test code = Monocytes) 6.9 2.0-12.0 [facility] StationGgjhldlWJQDSOSSTO1959-31-05 10:50:00 Test Item Value Reference Range Interpretation Comments Basophils (test code = 0.7 See_Comment [Aut omated message] The Basophils) system which ge nerated this result tra nsmitted reference range : <=1.0. The reference r ondina was not used to int erpret this result as normal/abnormal . [facility] StationEmazdxqJGDCOHTOCN5563-74-01 10:50:00 Test Item Value Reference Range Interpretation Comments Eosinophils (test code = 4.5 See_Comment [A utomated message] The Eosinophils) system which ge nerated this result tra nsmitted reference range : <=4.0. The reference r ondina was not used to int erpret this result as normal/abnormal . [facility] StationHwklizuXQWDSTCPSN1927-52-55 10:50:00 Test Item Value Reference Range Interpretation Comments Monocytes # (test code 0.5 See_Comment [Aut omated message] The = Monocytes #) system which generated this result tra nsmitted reference range : <=0.8. The reference r ondina was not used to int erpret this result as normal/abnormal . [facility] StationElzeitrEXZVXPVEMY4137-63-72 10:50:00 Test Item Value Reference Range Interpretation Comments Eosinophils # (test code 0.3 See_Comment [A utomated message] The = Eosinophils #) system whic h generated this result tra nsmitted reference range : <=0.5. The reference r ondina was not used to int erpret this result as normal/abnormal . [facility] StationIxfalkuWHRANVPGYD8612-80-78 10:50:00 Test Item Value Reference Range Interpretation Comments Segs (test code = Segs) 65.9 45.0-75.0 [facility] StationMblekhkVWYWRJGMZJ5864-14-03 10:50:00 Test Item Value Reference Range Interpretation Comments MCH (test code = MCH) 26.3 pg 27.0-31.0 [facility] StationRavwybcWWLXAKDLXH5428-70-79 10:50:00 Test Item Value Reference Range Interpretation Comments MCHC (test code = MCHC) 32.2 32.0-36.0 [facility] StationAcpzysoUWKENARZKS2860-91-42 10:50:00 Test Item Value Reference Range Interpretation Comments Hct (test code = Hct) 24.2 42.0-54.0 [facility] StationZmaorvkOKOORXHHWG9341-65-13 10:50:00 Test Item Value Reference Range Interpretation Comments MCV (test code = MCV) 81.7 80.0-94.0 [facility] StationEvxfvwsPCYZBJVVHE4002-58-98 10:50:00 Test Item Value Reference Range Interpretation Comments Platelet (test code = Platelet) 200 133-450 [facility] StationZkadomeGFRTCEXYWM2885-87-96 10:50:00 Test Item Value Reference Range Interpretation Comments RDW (test code = RDW) 18.4 11.5-14.5 [facility] StationDiealosBMWXAXBOJG5145-30-97 10:50:00 Test Item Value Reference Range Interpretation Comments MPV (test code = MPV) 8.2 7.4-10.4 [facility] StationScfmlnkVGBTDHTYNT6813-44-51 10:50:00 Test Item Value Reference Range Interpretation Comments RBC (test code = RBC) 2.96 4.70-6.10 [facility] StationVklvvkoCKMMTSKUBZ9562-49-00 10:50:00 Test Item Value Reference Range Interpretation Comments Hgb (test code = Hgb) 7.8 14.0-18.0 [facility] StationXedsxbjSGLSOZVRGK2754-08-92 10:50:00 Test Item Value Reference Range Interpretation Comments WBC (test code = WBC) 7.0 3.7-10.4 [facility]KwrohgjTRIAGDVMDS1687-15-36 10:50:00 Test Item Value Reference Range Interpretation Comments Vanco Tr (test code = Vanco Tr) 21.8 [facility] RockQtlagreEPUOQNGMBX8188-04-18 10:50:00 Test Item Value Reference Range Interpretation Comments Vanco Tr TND (test code = Vanco Tr TND) unk [facility]2019-03-16 09:08:00 Test Item Value Reference Range Interpretation Comments Bili Total (test code = Bili Total) 0.6 0.2-1.3 [facility]2019-03-16 09:08:00 Test Item Value Reference Range Interpretation Comments Total Protein (test code = Total 6.5 6.4-8.4 Protein) [facility]2019-03-16 09:08:00 Test Item Value Reference Range Interpretation Comments Alk Phos (test code = Alk Phos) 71 39-136 [place] 991199-03-16 09:08:00 Test Item Value Reference Range Interpretation Comments ALT (test code = ALT) 12 See_Comment [Auto mated message] The system which ge nerated this result transmit garrett reference range : <=65. The reference range was not used to interpr et this result as cassie l/abnormal. [facility]2019-03-16 09:08:00 Test Item Value Reference Range Interpretation Comments AST (test code = AST) 12 See_Comment [Auto mated message] The system which ge nerated this result transmit garrett reference range : <=37. The reference range was not used to interpr et this result as cassie l/abnormal. [facility]2019-03-16 09:08:00 Test Item Value Reference Range Interpretation Comments Albumin Lvl (test code = Albumin Lvl) 2.5 3.5-5.0 [facility]2019-03-16 09:08:00 Test Item Value Reference Range Interpretation Comments A/G Ratio (test code = A/G Ratio) 0.6 1 0.7-1.6 [facility]2019-03-16 09:08:00 Test Item Value Reference Range Interpretation Comments Globulin (test code = Globulin) 4.0 2.7-4.2 [facility]2019-03-16 09:08:00 Test Item Value Reference Range Interpretation Comments B/C Ratio (test code = B/C Ratio) 19 1 6-25 [facility] StationQtnukqxKVSNACVDEL3826-05-21 20:56:00 Test Item Value Reference Range Interpretation Comments INR (test code = INR) 0.89 1 0.85-1.17 [facility] StationOlvmrdfNPULCJZLHL0402-16-75 20:56:00 Test Item Value Reference Range Interpretation Comments PT (test code = PT) 11.9 s 12.0-14.7 [facility] RockCell>Point YAFTVRV7095-68-95 15:16:00 Test Item Value Reference Range Interpretation Comments RBC product (test code Product available = RBC product) 1(05/17/18 10:16 AM) [facility] Campusv[facility] SOZUDTC4619-87-12 13:26:00 Test Item Value Reference Range Interpretation Comments Antibody Scrn (test Negative (05/17/18 8:26 code = Antibody Scrn) AM) [facility] CampusMycoTechnology OEYDZHV3277-06-80 13:26:00 Test Item Value Reference Range Interpretation Comments ABO/Rh (test code = ABO/Rh) A POS [facility] [employer] [id number] 09:48:00 Test Item Value Reference Range Interpretation Comments Phosphorus (test code = Phosphorus) 3.2 2.5-4.5 [facility] [employer] ABGCF1883-10-17 09:48:00 Test Item Value Reference Range Interpretation Comments Bili Total (test code = Bili Total) 0.7 0.2-1.3 [facility] [employer] LNQSG2469-52-07 09:48:00 Test Item Value Reference Range Interpretation Comments Total Protein (test code = Total 5.9 6.4-8.4 Protein) [facility] [employer] EFPMX5355-51-03 09:48:00 Test Item Value Reference Range Interpretation Comments Albumin Lvl (test code = Albumin Lvl) 2.5 3.5-5.0 [facility] [employer] [id number] 09:48:00 Test Item Value Reference Range Interpretation Comments Alk Phos (test code = Alk Phos) 80 39-136 [facility] [employer] UOGJR5803-78-01 09:48:00 Test Item Value Reference Range Interpretation Comments ALT (test code = ALT) 12 See_Comment [Auto mated message] The system which ge nerated this result transmit garrett reference range : <=65. The reference range was not used to interpr et this result as cassie l/abnormal. [facility] [employer] LQQIO7943-55-42 09:48:00 Test Item Value Reference Range Interpretation Comments AST (test code = AST) 8 See_Comment [Auto mated message] The system which ge nerated this result transmit garrett reference range : <=37. The reference range was not used to interpr et this result as cassie l/abnormal. [facility]2019-03-15 09:48:00 Test Item Value Reference Range Interpretation Comments A/G Ratio (test code = A/G Ratio) 0.7 1 0.7-1.6 [facility]2019-03-15 09:48:00 Test Item Value Reference Range Interpretation Comments Globulin (test code = Globulin) 3.4 2.7-4.2 [facility]2019-03-15 09:48:00 Test Item Value Reference Range Interpretation Comments B/C Ratio (test code = B/C Ratio) 14 1 6-25 [facility]2019-03-15 09:48:00 Test Item Value Reference Range Interpretation Comments Magnesium Lvl (test code = Magnesium 1.8 1.8-2.4 Lvl) [facility] StationFlckhfrQYMOOIOJXI4392-61-34 09:48:00 Test Item Value Reference Range Interpretation Comments INR (test code = INR) 1.15 1 0.85-1.17 [facility] StationOdnysiyZGHLUFMSUY3253-00-87 09:48:00 Test Item Value Reference Range Interpretation Comments PT (test code = PT) 14.5 s 12.0-14.7 [facility] StationXtqwlatECYGBAYQPP6269-84-76 09:48:00 Test Item Value Reference Range Interpretation Comments PTT (test code = PTT) 43.8 s 22.9-35.8 [facility]2019-03-14 10:21:00 Test Item Value Reference Range Interpretation Comments AST (test code = AST) 6 See_Comment [Auto mated message] The system which ge nerated this result transmit garrett reference range : <=37. The reference range was not used to interpr et this result as cassie l/abnormal. [facility]2019-03-14 10:21:00 Test Item Value Reference Range Interpretation Comments A/G Ratio (test code = A/G Ratio) 0.7 1 0.7-1.6 [facility]2019-03-14 10:21:00 Test Item Value Reference Range Interpretation Comments Total Protein (test code = Total 5.8 6.4-8.4 Protein) [facility]2019-03-14 10:21:00 Test Item Value Reference Range Interpretation Comments Globulin (test code = Globulin) 3.4 2.7-4.2 [facility]2019-03-14 10:21:00 Test Item Value Reference Range Interpretation Comments B/C Ratio (test code = B/C Ratio) 15 1 6-25 [facility]2019-03-14 10:21:00 Test Item Value Reference Range Interpretation Comments ALT (test code = ALT) 11 See_Comment [Auto mated message] The system which ge nerated this result transmit garrett reference range : <=65. The reference range was not used to interpr et this result as cassie l/abnormal. [facility]2019-03-14 10:21:00 Test Item Value Reference Range Interpretation Comments Bili Total (test code = Bili Total) 1.6 0.2-1.3 [facility]2019-03-14 10:21:00 Test Item Value Reference Range Interpretation Comments Albumin Lvl (test code = Albumin Lvl) 2.4 3.5-5.0 [facility]2019-03-14 10:21:00 Test Item Value Reference Range Interpretation Comments Alk Phos (test code = Alk Phos) 75 39-136 [facility]2019-03-14 10:21:00 Test Item Value Reference Range Interpretation Comments Magnesium Lvl (test code = Magnesium 1.8 1.8-2.4 Lvl) [facility]2019-03-14 10:21:00 Test Item Value Reference Range Interpretation Comments Phosphorus (test code = Phosphorus) 3.0 2.5-4.5 [facility] RockHraiccaXXQWOJXHUM5945-73-29 10:21:00 Test Item Value Reference Range Interpretation Comments Vanco Lvl (test code = Vanco Lvl) 16.6 [facility] RockPARATHYROID [id number] 08:07:00 Test Item Value Reference Range Interpretation Comments Ca Norm WB (test code = Ca Norm WB) 1.15 1.05-1.25 [facility] ClubROID [id number] 08:07:00 Test Item Value Reference Range Interpretation Comments Ca Ion WB (test code = Ca Ion WB) 1.15 1.05-1.25 [facility]2019-03-12 08:41:00 Test Item Value Reference Range Interpretation Comments Ca Norm WB (test code = Ca Norm WB) 1.11 1.05-1.25 [facility] RockPARATHYROID [id number] 08:41:00 Test Item Value Reference Range Interpretation Comments Ca Ion WB (test code = Ca Ion WB) 1.09 1.05-1.25 [facility] BANK [id number] 04:19:00 Test Item Value Reference Range Interpretation Comments RBC product (test code Product available = RBC product) 2(05/13/18 11:19 PM) [facility] BANK [id number] 02:42:00 Test Item Value Reference Range Interpretation Comments RBC product (test code Product available = RBC product) 3(05/13/18 9:42 PM) [facility] RockCHEM [id number] 01:42:00 Test Item Value Reference Range Interpretation Comments Lactic Acid Lvl (test code = Lactic 0.9 0.5-2.2 Acid Lvl) [facility] StationPbkrmyoJERRAYGRJL1400-12-01 01:42:00 Test Item Value Reference Range Interpretation Comments PT (test code = PT) 13.9 s 12.0-14.7 [facility] StationQidwrooJIBKWNMVYI2692-70-55 01:42:00 Test Item Value Reference Range Interpretation Comments INR (test code = INR) 1.09 1 0.85-1.17 [facility] StationCqcpxhnOGDNGOFECD2158-32-03 01:42:00 Test Item Value Reference Range Interpretation Comments PTT (test code = PTT) 29.8 s 22.9-35.8 [facility] RockCulture: [id number] 13:11:00 Test Item Value Reference Range Interpretation Comments Culture: Anaerobic No Anaerobes Isolated (test code = Culture: Anaerobic) [facility] RockGram Stain Iucqzs0310-01-23 13:11:00 Test Item Value Reference Range Interpretation Comments Gram Stain Report No Wbc'S Or Organisms (test code = Gram Seen Stain Report) [facility] RockCulture: Aspirate/Body Fluid/Fdrjuh8501-77-67 13:11:00 Test Item Value Reference Range Interpretation Comments Culture: Aspirate/Body Fluid/Tissue No Growth (test code = Culture: Aspirate/Body Fluid/Tissue) [facility]AxapwsaHFOTFSMDPZ0346-68-08 10:03:00 Test Item Value Reference Range Interpretation Comments Sed Rate (test code = 33 See_Comment [Auto mated message] The Sed Rate) system which ge nerated this result transmit garrett reference range : <=15. The reference range was not used to interpr et this result as cassie l/abnormal. [facility] RockUpjevbjXEUSOBAMYO8820-57-70 10:03:00 Test Item Value Reference Range Interpretation Comments PTT (test code = PTT) 32.6 s 22.9-35.8 [facility] RockGrswjxzCBCLCGPWXI4056-85-76 10:03:00 Test Item Value Reference Range Interpretation Comments C-REACTIVE PROTEIN (test code = 12.4 C-REACTIVE PROTEIN) [facility]MycoTechnology [id number] 01:00:00 Test Item Value Reference Range Interpretation Comments Antibody Scrn (test Negative (05/12/18 8:00 code = Antibody Scrn) PM) [facility] CampusMy[facility] [id number] 01:00:00 Test Item Value Reference Range Interpretation Comments ABO/Rh (test code = ABO/Rh) A POS [facility] [employer] [id number] 09:58:00 Test Item Value Reference Range Interpretation Comments Bili Direct (test code no gt See_Comment [Aut omated message] The = Bili Direct) system which generated this result tra nsmitted reference range : <=0.3. The reference r ondina was not used to int erpret this result as cassie l/abnormal. [facility] CampusAs It Is [id number] 09:58:00 Test Item Value Reference Range Interpretation Comments Bili Indirect Unable to See_Comment [Automated (test code = Bili Calculate message] T he system Indirect) which generated this result transmitted reference range : <=1.0. The reference range was not used to interpret this result as normal/abnormal . [facility] RockDdsxwmnCYNGNLUXKS7113-10-66 09:58:00 Test Item Value Reference Range Interpretation Comments Sed Rate (test code = 30 See_Comment [Auto mated message] The Sed Rate) system which ge nerated this result transmit garrett reference range : <=15. The reference range was not used to interpr et this result as cassie l/abnormal. [facility] RockWufxfawHBCAMJZBOM4476-92-79 09:58:00 Test Item Value Reference Range Interpretation Comments Microcyte (test code = 1+ *ABN*(05/12/18 Microcyte) 4:58 AM) [facility]WjgqtopPEYMDIIZSQ8577-26-39 09:58:00 Test Item Value Reference Range Interpretation Comments C-REACTIVE PROTEIN (test code = 9.8 C-REACTIVE PROTEIN) [facility]2019-03-09 10:50:00 Test Item Value Reference Range Interpretation Comments Bili Indirect Unable to See_Comment [Automated (test code = Bili Calculate message] T he system Indirect) which generated this result transmitted reference range : <=1.0. The reference range was not used to interpret this result as normal/abnormal . [facility]2019-03-09 10:50:00 Test Item Value Reference Range Interpretation Comments Bili Direct (test code no gt See_Comment [Aut omated message] The = Bili Direct) system which generated this result tra nsmitted reference range : <=0.3. The reference r ondina was not used to int erpret this result as cassie l/abnormal. [facility] StationXjrusgmTBGETXXQSK7872-71-29 10:50:00 Test Item Value Reference Range Interpretation Comments Sed Rate (test code = 34 See_Comment [Auto mated message] The Sed Rate) system which ge nerated this result transmit garrett reference range : <=15. The reference range was not used to interpr et this result as cassie l/abnormal. [facility] StationSqzccsuBVGVPRFRKE5604-48-63 10:50:00 Test Item Value Reference Range Interpretation Comments Microcyte (test code = 1+ *ABN*(05/11/18 4:50 Microcyte) AM) [facility] CenterCyksjxmCRWQELPSAP5213-39-51 10:50:00 Test Item Value Reference Range Interpretation Comments C-REACTIVE PROTEIN (test code = 8.7 C-REACTIVE PROTEIN) Sonu BautistaNEM:SUSC:PT:ISOLATE:ORDQN:[id number] 23:28:00 Test Item Value Reference Range Interpretation Comments Gram Stain Report Rare WBC's No Organisms (test code = Gram Seen Stain Report) [facility] SoteroannMEROPENEM:SUSC:PT:ISOLATE:ORDQN:[id number] 23:28:00 Test Item Value Reference Range Interpretation Comments Culture: Growth In Subculture Broth Wound/Abscess Only : Staphylococcus w/Gram Stain (test Species, Not S. aureus code = Culture: Wound/Abscess w/Gram Stain) Sonu KellyOPENEM:SUSC:PT:ISOLATE:ORDQN:[id number] 23:28:00 Test Item Value Reference Range Interpretation Comments Staphylococcus Species, Staphylococcus Not S. aureus (test Species, Not S. aureus code = Staphylococcus Species, Not S. aureus) [facility] [id number] 17:06:00 Test Item Value Reference Range Interpretation Comments Procalcitonin Lvl (test no gt See_Comment [Au tomated message] code = Procalcitonin Lvl) Th e system which generated this result transmitted ref erence range: <=0.10. The reference range was not used to interpr et this result as normal/abnormal . [facility] ArborYzsybakCZLIKDECLJ3464-46-38 09:26:00 Test Item Value Reference Range Interpretation Comments Microcyte (test code = 1+ *ABN*(05/10/18 3:26 Microcyte) AM) [id number] 20:34:00 Test Item Value Reference Range Interpretation Comments Plt Morph (test code = Normal (05/09/18 2:34 PM) Plt Morph) [facility] RockCARDIAC [id number] 10:47:00 Test Item Value Reference Range Interpretation Comments BNP (test code = BNP) 288 [facility] [id number] 10:47:00 Test Item Value Reference Range Interpretation Comments Phosphorus (test code = Phosphorus) 3.3 2.5-4.5 [facility] [id number] 10:47:00 Test Item Value Reference Range Interpretation Comments Magnesium Lvl (test code = Magnesium 2.2 1.8-2.4 Lvl) [facility] [id number] 10:47:00 Test Item Value Reference Range Interpretation Comments Albumin Lvl (test code = Albumin Lvl) 2.3 3.5-5.0 [facility] [id number] 10:47:00 Test Item Value Reference Range Interpretation Comments Creatinine Lvl (test code = Creatinine 0.81 0.50-1.40 Lvl) [facility] [id number] 10:47:00 Test Item Value Reference Range Interpretation Comments ALT (test code = ALT) 14 See_Comment [Auto mated message] The system which ge nerated this result transmit garrett reference range : <=65. The reference range was not used to interpr et this result as cassie l/abnormal. [facility]2018-12-28 10:47:00 Test Item Value Reference Range Interpretation Comments AST (test code = AST) 9 See_Comment [Auto mated message] The system which ge nerated this result transmit garrett reference range : <=37. The reference range was not used to interpr et this result as cassie l/abnormal. [facility]2018-12-28 10:47:00 Test Item Value Reference Range Interpretation Comments eGFR (test code = eGFR) 97 [facility]2018-12-28 10:47:00 Test Item Value Reference Range Interpretation Comments Sodium Lvl (test code = Sodium Lvl) 143 135-145 [facility]2018-12-28 10:47:00 Test Item Value Reference Range Interpretation Comments Potassium Lvl (test code = Potassium 3.3 3.5-5.1 Lvl) [facility]2018-12-28 10:47:00 Test Item Value Reference Range Interpretation Comments Chloride Lvl (test code = Chloride Lvl) 107 95-109 [facility]2018-12-28 10:47:00 Test Item Value Reference Range Interpretation Comments Total Protein (test code = Total 6.7 6.4-8.4 Protein) [facility]2018-12-28 10:47:00 Test Item Value Reference Range Interpretation Comments Bili Total (test code = Bili Total) 0.7 0.2-1.3 [facility]2018-12-28 10:47:00 Test Item Value Reference Range Interpretation Comments Calcium Lvl (test code = Calcium Lvl) 8.3 8.5-10.5 [facility]2018-12-28 10:47:00 Test Item Value Reference Range Interpretation Comments CO2 (test code = CO2) 29 24-32 [facility]2018-12-28 10:47:00 Test Item Value Reference Range Interpretation Comments BUN (test code = BUN) 14 7-22 [facility]2018-12-28 10:47:00 Test Item Value Reference Range Interpretation Comments Glucose Lvl (test code = Glucose Lvl) 128 70-99 [facility]2018-12-28 10:47:00 Test Item Value Reference Range Interpretation Comments Alk Phos (test code = Alk Phos) 100 39-136 [facility]2018-12-28 10:47:00 Test Item Value Reference Range Interpretation Comments B/C Ratio (test code = B/C Ratio) 17 1 6-25 [facility]2018-12-28 10:47:00 Test Item Value Reference Range Interpretation Comments Globulin (test code = Globulin) 4.4 2.7-4.2 [facility]2018-12-28 10:47:00 Test Item Value Reference Range Interpretation Comments A/G Ratio (test code = A/G Ratio) 0.5 1 0.7-1.6 [facility]2018-12-28 10:47:00 Test Item Value Reference Range Interpretation Comments AGAP (test code = AGAP) 10.3 10.0-20.0 [facility] StationMpxkuqaINWTTSSMSX0111-27-27 10:47:00 Test Item Value Reference Range Interpretation Comments Microcyte (test code = 1+ *ABN*(03/01/18 Microcyte) 4:47 AM) [facility] StationSwabrzuEDGMSDYSKB2813-08-19 10:47:00 Test Item Value Reference Range Interpretation Comments Lymphocytes # (test code = Lymphocytes 1.4 1.0-5.5 #) [facility] StationCeflghlMWQOBLOANI9287-54-70 10:47:00 Test Item Value Reference Range Interpretation Comments Monocytes # (test code 0.8 See_Comment [Aut omated message] The = Monocytes #) system which generated this result tra nsmitted reference range : <=0.8. The reference r ondina was not used to int erpret this result as normal/abnormal . [facility] StationRuphysjKZFDMOCDKX4664-42-45 10:47:00 Test Item Value Reference Range Interpretation Comments Segs (test code = Segs) 78.3 45.0-75.0 [facility] StationKhxqgijYKLOUFHRIY6334-37-67 10:47:00 Test Item Value Reference Range Interpretation Comments Basophils (test code = 0.4 See_Comment [Aut omated message] The Basophils) system which ge nerated this result tra nsmitted reference range : <=1.0. The reference r ondina was not used to int erpret this result as normal/abnormal . [facility] StationPizuequTVTTPXGNSJ7169-02-10 10:47:00 Test Item Value Reference Range Interpretation Comments Neutrophils # (test code = Neutrophils 8.1 1.5-8.1 #) [facility] StationFumijtdAPVDBTGZBD3886-98-27 10:47:00 Test Item Value Reference Range Interpretation Comments Monocytes (test code = Monocytes) 7.9 2.0-12.0 [facility] StationWabqbgzUREPWNSFPM9927-59-27 10:47:00 Test Item Value Reference Range Interpretation Comments Lymphocytes (test code = Lymphocytes) 13.4 20.0-40.0 [facility] StationQcvqqkjGDAWMOJOPB8415-15-67 10:47:00 Test Item Value Reference Range Interpretation Comments Hct (test code = Hct) 27.0 42.0-54.0 [facility] StationUuonkizUBGZPBZOTO0211-17-82 10:47:00 Test Item Value Reference Range Interpretation Comments MCV (test code = MCV) 78.7 80.0-94.0 [facility] StationRivzczuKUSKEAZRVM3555-86-45 10:47:00 Test Item Value Reference Range Interpretation Comments MCHC (test code = MCHC) 32.7 32.0-36.0 [facility] StationHisyvxfYFDMLPMHGE2740-24-24 10:47:00 Test Item Value Reference Range Interpretation Comments MCH (test code = MCH) 25.8 pg 27.0-31.0 [facility] StationLbiuhnaESSHSLLFRS0031-92-56 10:47:00 Test Item Value Reference Range Interpretation Comments MPV (test code = MPV) 8.2 7.4-10.4 [facility] StationElxkkjcRGYGXFNWPG0793-87-08 10:47:00 Test Item Value Reference Range Interpretation Comments Platelet (test code = Platelet) 475 133-450 [facility] StationDecdvejJPINLGNSIQ3001-18-90 10:47:00 Test Item Value Reference Range Interpretation Comments RDW (test code = RDW) 17.9 11.5-14.5 [facility] StationBpumywkJFZHMJOYPV7471-02-17 10:47:00 Test Item Value Reference Range Interpretation Comments RBC (test code = RBC) 3.42 4.70-6.10 [facility] StationNbdkrusNIDDGIGMMI4830-45-97 10:47:00 Test Item Value Reference Range Interpretation Comments Hgb (test code = Hgb) 8.8 14.0-18.0 [facility] StationLimqkulTUIISWBTKD1236-04-36 10:47:00 Test Item Value Reference Range Interpretation Comments WBC (test code = WBC) 10.3 3.7-10.4 [facility] RockCARDIAC [id number] 16:12:00 Test Item Value Reference Range Interpretation Comments Troponin-I (test code no gt See_Comment [Auto mated message] The = Troponin-I) system which g enerated this result transmit garrett reference range : <=0.40. The reference r ondina was not used to interpr et this result as cassie l/abnormal. [facility]2018-12-27 16:12:00 Test Item Value Reference Range Interpretation Comments Magnesium Lvl (test code = Magnesium 2.1 1.8-2.4 Lvl) [facility]2018-12-27 16:12:00 Test Item Value Reference Range Interpretation Comments Alk Phos (test code = Alk Phos) 132 39-136 [facility]2018-12-27 16:12:00 Test Item Value Reference Range Interpretation Comments Potassium Lvl (test code = Potassium 3.8 3.5-5.1 Lvl) [facility]2018-12-27 16:12:00 Test Item Value Reference Range Interpretation Comments Chloride Lvl (test code = Chloride Lvl) 108 95-109 [facility]2018-12-27 16:12:00 Test Item Value Reference Range Interpretation Comments Sodium Lvl (test code = Sodium Lvl) 141 135-145 [facility]2018-12-27 16:12:00 Test Item Value Reference Range Interpretation Comments eGFR (test code = eGFR) 96 [facility]2018-12-27 16:12:00 Test Item Value Reference Range Interpretation Comments B/C Ratio (test code = B/C Ratio) 7 1 6-25 [facility]2018-12-27 16:12:00 Test Item Value Reference Range Interpretation Comments AST (test code = AST) 15 See_Comment [Auto mated message] The system which ge nerated this result transmit garrett reference range : <=37. The reference range was not used to interpr et this result as cassie l/abnormal. [facility]2018-12-27 16:12:00 Test Item Value Reference Range Interpretation Comments Creatinine Lvl (test code = Creatinine 0.83 0.50-1.40 Lvl) [facility]2018-12-27 16:12:00 Test Item Value Reference Range Interpretation Comments ALT (test code = ALT) 20 See_Comment [Auto mated message] The system which ge nerated this result transmit garrett reference range : <=65. The reference range was not used to interpr et this result as cassie l/abnormal. [facility]2018-12-27 16:12:00 Test Item Value Reference Range Interpretation Comments AGAP (test code = AGAP) 13.8 10.0-20.0 [facility]2018-12-27 16:12:00 Test Item Value Reference Range Interpretation Comments Albumin Lvl (test code = Albumin Lvl) 2.5 3.5-5.0 [facility]2018-12-27 16:12:00 Test Item Value Reference Range Interpretation Comments Glucose Lvl (test code = Glucose Lvl) 153 70-99 [facility]2018-12-27 16:12:00 Test Item Value Reference Range Interpretation Comments BUN (test code = BUN) 6 7-22 [facility]2018-12-27 16:12:00 Test Item Value Reference Range Interpretation Comments CO2 (test code = CO2) 23 24-32 [facility]2018-12-27 16:12:00 Test Item Value Reference Range Interpretation Comments Calcium Lvl (test code = Calcium Lvl) 8.8 8.5-10.5 [facility]2018-12-27 16:12:00 Test Item Value Reference Range Interpretation Comments Bili Total (test code = Bili Total) 0.2 0.2-1.3 [facility]2018-12-27 16:12:00 Test Item Value Reference Range Interpretation Comments Total Protein (test code = Total 7.5 6.4-8.4 Protein) [facility]2018-12-27 16:12:00 Test Item Value Reference Range Interpretation Comments Globulin (test code = Globulin) 5.0 2.7-4.2 [facility]2018-12-27 16:12:00 Test Item Value Reference Range Interpretation Comments A/G Ratio (test code = A/G Ratio) 0.5 1 0.7-1.6 [facility]2018-12-27 16:12:00 Test Item Value Reference Range Interpretation Comments Phosphorus (test code = Phosphorus) 2.9 2.5-4.5 [facility] RockCARFitwall SNMQCCH2421-18-26 04:37:00 Test Item Value Reference Range Interpretation Comments Troponin-I (test code no gt See_Comment [Auto mated message] The = Troponin-I) system which g enerated this result transmit garrett reference range : <=0.40. The reference r ondina was not used to interpr et this result as cassie l/abnormal. [facility] Round RockLiveWire Mobile [id number] 04:37:00 Test Item Value Reference Range Interpretation Comments proBNP (test code = 2678 See_Comment [Automa garrett message] The proBNP) system which ge nerated this result tra nsmitted reference range : <=125. The reference r ondina was not used to int erpret this result as cassie l/abnormal. [facility] CampusZmxuzhqNXNFOZQJBULU8142-90-19 04:37:00 Test Item Value Reference Range Interpretation Comments CO2 (test code = CO2) 25 24-32 [facility]NvjiaftUBKUWCZEVVBZ1734-08-63 04:37:00 Test Item Value Reference Range Interpretation Comments Calcium Lvl (test code = Calcium Lvl) 8.1 8.5-10.5 [facility]PcgbnxtZKAZLMLZLNKQ7252-52-09 04:37:00 Test Item Value Reference Range Interpretation Comments Potassium Lvl (test code = Potassium 3.6 3.5-5.1 Lvl) [facility] CenterBocotzyFWSOSYXKYKZW7403-41-13 04:37:00 Test Item Value Reference Range Interpretation Comments Chloride Lvl (test code = Chloride Lvl) 108 95-109 [facility] CenterMtssxelDSSEAFGSZRXW6456-99-10 04:37:00 Test Item Value Reference Range Interpretation Comments Sodium Lvl (test code = Sodium Lvl) 142 135-145 [facility] CenterXjklfsyUZWRJWMIXIRN3105-82-22 04:37:00 Test Item Value Reference Range Interpretation Comments Creatinine Lvl (test code = Creatinine 0.80 0.50-1.40 Lvl) [facility] HospitalZotztmjMRXPBAZONKLQ0225-52-78 04:37:00 Test Item Value Reference Range Interpretation Comments BUN (test code = BUN) 8 7-22 [facility] CenterNufjdbeQJUTADUKMSFZ9811-41-55 04:37:00 Test Item Value Reference Range Interpretation Comments Glucose Lvl (test code = Glucose Lvl) 88 70-99 [facility] HospitalAbhfgbyHSCFZIGRSFGI5712-16-43 04:37:00 Test Item Value Reference Range Interpretation Comments eGFR (test code = eGFR) 97 [facility] HospitalIwdbybkDWVPFQCEVBYI4376-26-82 04:37:00 Test Item Value Reference Range Interpretation Comments AGAP (test code = AGAP) 12.6 10.0-20.0 [facility] StationQpjfnviZKOYVJCITM3781-23-24 04:37:00 Test Item Value Reference Range Interpretation Comments WBC (test code = WBC) 7.8 3.7-10.4 [facility] StationBqbwnulRXBLWDIIVN4242-35-77 04:37:00 Test Item Value Reference Range Interpretation Comments RBC (test code = RBC) 3.53 4.70-6.10 [facility] StationMghufefOGMKEZIYVG0678-88-56 04:37:00 Test Item Value Reference Range Interpretation Comments Hgb (test code = Hgb) 9.0 14.0-18.0 [facility] StationXjlthjmVIQHSBOKIY0816-79-32 04:37:00 Test Item Value Reference Range Interpretation Comments MCH (test code = MCH) 25.4 pg 27.0-31.0 [facility] StationAlwpmftXRVHMDALYE6176-07-46 04:37:00 Test Item Value Reference Range Interpretation Comments Hct (test code = Hct) 27.5 42.0-54.0 [facility] StationAxekxtwZWBKTXGMTB9907-11-59 04:37:00 Test Item Value Reference Range Interpretation Comments MCV (test code = MCV) 78.1 80.0-94.0 [facility] StationTutghboIOZYLZCVEK9366-23-18 04:37:00 Test Item Value Reference Range Interpretation Comments Platelet (test code = Platelet) 400 133-450 [facility] StationUcrrbswJAEIQFVYGG2933-92-45 04:37:00 Test Item Value Reference Range Interpretation Comments MCHC (test code = MCHC) 32.5 32.0-36.0 [facility] StationIehgkidZYVVOPOZLH5666-56-94 04:37:00 Test Item Value Reference Range Interpretation Comments MPV (test code = MPV) 8.2 7.4-10.4 [facility] StationUqckkglAZVNEOAERQ9802-44-31 04:37:00 Test Item Value Reference Range Interpretation Comments RDW (test code = RDW) 17.8 11.5-14.5 [facility] StationCvvxhjqZAASYRBWBY6911-06-47 04:37:00 Test Item Value Reference Range Interpretation Comments Microcyte (test code = 1+ *ABN*(02/27/18 Microcyte) 10:37 PM) [facility] StationWecwzbsCGCBSEDFTP7413-57-19 04:37:00 Test Item Value Reference Range Interpretation Comments Eosinophils (test code = 4.0 See_Comment [A utomated message] The Eosinophils) system which ge nerated this result tra nsmitted reference range : <=4.0. The reference r ondina was not used to int erpret this result as normal/abnormal . [facility] StationTbzbdqbJKEMFQCIWJ8233-59-74 04:37:00 Test Item Value Reference Range Interpretation Comments Neutrophils # (test code = Neutrophils 4.8 1.5-8.1 #) [facility] StationOhsgmczOUVXBKYSXM0398-54-42 04:37:00 Test Item Value Reference Range Interpretation Comments Basophils (test code = 1.2 See_Comment [Aut omated message] The Basophils) system which ge nerated this result tra nsmitted reference range : <=1.0. The reference r ondina was not used to int erpret this result as normal/abnormal . [facility] StationEghpmnpJWIEZPJJCD7800-88-14 04:37:00 Test Item Value Reference Range Interpretation Comments Lymphocytes # (test code = Lymphocytes 1.8 1.0-5.5 #) [facility] StationYzlubstRCXBPKQBON6895-71-29 04:37:00 Test Item Value Reference Range Interpretation Comments Monocytes # (test code 0.7 See_Comment [Aut omated message] The = Monocytes #) system which generated this result tra nsmitted reference range : <=0.8. The reference r ondina was not used to int erpret this result as normal/abnormal . [facility] StationQwnpdnvOBASKBZZVG1339-78-88 04:37:00 Test Item Value Reference Range Interpretation Comments Basophils # (test code 0.1 See_Comment [Aut omated message] The = Basophils #) system which generated this result tra nsmitted reference range : <=0.2. The reference r ondina was not used to int erpret this result as normal/abnormal . [facility] StationOyjhqssDEKKEHGGTG9592-89-16 04:37:00 Test Item Value Reference Range Interpretation Comments Eosinophils # (test code 0.3 See_Comment [A utomated message] The = Eosinophils #) system whic h generated this result tra nsmitted reference range : <=0.5. The reference r ondina was not used to int erpret this result as normal/abnormal . [facility] StationNbjtorzYEPMOFLQEK1768-18-80 04:37:00 Test Item Value Reference Range Interpretation Comments Lymphocytes (test code = Lymphocytes) 23.7 20.0-40.0 [facility] StationXfprmwsYGQEMZWWHG5972-14-24 04:37:00 Test Item Value Reference Range Interpretation Comments Monocytes (test code = Monocytes) 8.8 2.0-12.0 [facility] StationCnwqwaxEWZRQINFVQ2455-20-65 04:37:00 Test Item Value Reference Range Interpretation Comments Segs (test code = Segs) 62.3 45.0-75.0 [facility] [id number] 04:37:00 Test Item Value Reference Range Interpretation Comments UA Gran Cast (test code = UA Gran 6-10 /LPF Cast) [facility] [id number] 04:37:00 Test Item Value Reference Range Interpretation Comments UA Color (test code = Yellow *NA*(02/27/18 UA Color) 10:37 PM) [facility] [id number] 04:37:00 Test Item Value Reference Range Interpretation Comments UA Turbidity (test code Moderate = UA Turbidity) *ABN*(02/27/18 10:37 PM) [facility] [id number] 04:37:00 Test Item Value Reference Range Interpretation Comments UA Amorph Atiya (test code = Occasional /HPF UA Amorph Atiya) [facility] [id number] 04:37:00 Test Item Value Reference Range Interpretation Comments UA Bacteria (test code = UA Occasional /HPF Bacteria) [facility] [id number] 04:37:00 Test Item Value Reference Range Interpretation Comments UA Mucus (test code = UA Mucus) Few /LPF [facility] [id number] 04:37:00 Test Item Value Reference Range Interpretation Comments UA RBC (test code = 1 See_Comment [Automa garrett message] The UA RBC) system which ge nerated this result transmit garrett reference range : <=2. The reference range was not used to interpr et this result as cassie l/abnormal. [facility] [id number] 04:37:00 Test Item Value Reference Range Interpretation Comments UA Leuk Est (test Negative (02/27/18 10:37 code = UA Leuk Est) PM) [facility] [id number] 04:37:00 Test Item Value Reference Range Interpretation Comments UA Nitrite (test code Negative (02/27/18 = UA Nitrite) 10:37 PM) [facility] [id number] 04:37:00 Test Item Value Reference Range Interpretation Comments UA WBC (test code = 1 See_Comment [Automa garrett message] The UA WBC) system which ge nerated this result transmit garrett reference range : <=5. The reference range was not used to interpr et this result as cassie l/abnormal. [facility] [id number] 04:37:00 Test Item Value Reference Range Interpretation Comments UA Sq Epi (test code = UA Sq Occasional /LPF Epi) [facility] [id number] 04:37:00 Test Item Value Reference Range Interpretation Comments UA Protein (test code Negative (02/27/18 = UA Protein) 10:37 PM) [facility] [id number] 04:37:00 Test Item Value Reference Range Interpretation Comments UA Spec Grav (test code = UA Spec 1.009 1 Grav) [facility] [id number] 04:37:00 Test Item Value Reference Range Interpretation Comments UA pH (test code = UA pH) 6.0 1 5.0-8.0 [facility] [id number] 04:37:00 Test Item Value Reference Range Interpretation Comments UA Ketones (test code Negative *NA*(02/27/18 = UA Ketones) 10:37 PM) [facility] [id number] 04:37:00 Test Item Value Reference Range Interpretation Comments UA Urobilinogen (test code = UA <=1.0 mg/dL 0.1-1.0 Urobilinogen) [facility] [id number] 04:37:00 Test Item Value Reference Range Interpretation Comments UA Blood (test code = Negative (02/27/18 10:37 UA Blood) PM) [facility] [id number] 04:37:00 Test Item Value Reference Range Interpretation Comments UA Glucose (test code Negative *NA*(02/27/18 = UA Glucose) 10:37 PM) [facility] [id number] 04:37:00 Test Item Value Reference Range Interpretation Comments UA Bili (test code = Negative *NA*(02/27/18 UA Bili) 10:37 PM) [facility] - [id number] 04:37:00 Test Item Value Reference Range Interpretation Comments Influ A (test code = Negative (02/27/18 10:37 Influ A) PM) [facility] [id number] 04:37:00 Test Item Value Reference Range Interpretation Comments Influ B (test code = Negative (02/27/18 10:37 Influ B) PM) [facility]HfhtlphXZZDYQRYVPCG8714-40-50 12:27:00 Test Item Value Reference Range Interpretation Comments AGAP (test code = AGAP) 12.7 10.0-20.0 [facility] HospitalGbezfffMFWVCBBZOXDS8135-30-58 12:27:00 Test Item Value Reference Range Interpretation Comments Glucose Lvl (test code = Glucose Lvl) 79 70-99 [facility] HospitalNatwaegVMEHUKYQFSJM3199-91-58 12:27:00 Test Item Value Reference Range Interpretation Comments Potassium Lvl (test code = Potassium 3.7 3.5-5.1 Lvl) [facility] HospitalOkbfpxnRPYYBGQBQGTD1656-66-97 12:27:00 Test Item Value Reference Range Interpretation Comments Sodium Lvl (test code = Sodium Lvl) 144 135-145 [facility] HospitalMpnytxzQMNMRUQCLHCR6970-91-17 12:27:00 Test Item Value Reference Range Interpretation Comments Chloride Lvl (test code = Chloride Lvl) 109 95-109 [facility] HospitalDostfdzLVTTDAUUMNRD5210-87-88 12:27:00 Test Item Value Reference Range Interpretation Comments eGFR (test code = eGFR) 104 [facility] HospitalYnzewoyGABWFKGFXAHX2023-42-74 12:27:00 Test Item Value Reference Range Interpretation Comments Creatinine Lvl (test code = Creatinine 0.68 0.50-1.40 Lvl) [facility] HospitalZpnlmprXTCDXZDOPKMJ8724-22-04 12:27:00 Test Item Value Reference Range Interpretation Comments Calcium Lvl (test code = Calcium Lvl) 8.2 8.5-10.5 [facility] HospitalRudpwdvSAHJGNEOCZEX6358-01-52 12:27:00 Test Item Value Reference Range Interpretation Comments CO2 (test code = CO2) 26 24-32 [facility]MdyatbpVWMSFMWQXKDJ1320-56-07 12:27:00 Test Item Value Reference Range Interpretation Comments BUN (test code = BUN) 9 7-22 [facility]JrndjosQJPBIUFEKK7163-58-76 12:27:00 Test Item Value Reference Range Interpretation Comments MPV (test code = MPV) 8.2 7.4-10.4 [facility] StationHdkhbyhOJBNMTDXSA9373-68-82 12:27:00 Test Item Value Reference Range Interpretation Comments RDW (test code = RDW) 17.6 11.5-14.5 [facility] StationZudxhqqYPVADBDVWC5866-36-25 12:27:00 Test Item Value Reference Range Interpretation Comments Platelet (test code = Platelet) 336 133-450 [facility] StationRmnakuiOTAFJONDJZ0686-99-28 12:27:00 Test Item Value Reference Range Interpretation Comments MCV (test code = MCV) 80.4 80.0-94.0 [facility] StationHiugszcKDSOFEEBJK3743-11-33 12:27:00 Test Item Value Reference Range Interpretation Comments MCH (test code = MCH) 25.7 pg 27.0-31.0 [facility] StationKxuhagyUFAZIUGMGH3735-93-34 12:27:00 Test Item Value Reference Range Interpretation Comments MCHC (test code = MCHC) 32.0 32.0-36.0 [facility] StationYafgrjkFUTAIUESTX2010-39-10 12:27:00 Test Item Value Reference Range Interpretation Comments RBC (test code = RBC) 3.65 4.70-6.10 [facility] StationYvkdhzpMUQSAIXPBY5975-49-60 12:27:00 Test Item Value Reference Range Interpretation Comments WBC (test code = WBC) 6.8 3.7-10.4 [facility] StationVmxqzdrKZUYHRDOQH5838-96-09 12:27:00 Test Item Value Reference Range Interpretation Comments Hgb (test code = Hgb) 9.4 14.0-18.0 [facility] StationHbhwzjtLIWVUDUCHU7333-91-03 12:27:00 Test Item Value Reference Range Interpretation Comments Hct (test code = Hct) 29.3 42.0-54.0 [facility] StationKrpmkdmCLIXHTVUVK8802-03-60 12:27:00 Test Item Value Reference Range Interpretation Comments Lymphocytes # (test code = Lymphocytes 1.4 1.0-5.5 #) [facility] StationEesljqoMCXWQGIVFL7946-57-84 12:27:00 Test Item Value Reference Range Interpretation Comments Monocytes # (test code 0.6 See_Comment [Aut omated message] The = Monocytes #) system which generated this result tra nsmitted reference range : <=0.8. The reference r ondina was not used to int erpret this result as normal/abnormal . [facility] StationDkdgvvnUZBJITUTRF4146-27-45 12:27:00 Test Item Value Reference Range Interpretation Comments Basophils # (test code 0.1 See_Comment [Aut omated message] The = Basophils #) system which generated this result tra nsmitted reference range : <=0.2. The reference r ondina was not used to int erpret this result as normal/abnormal . [facility] StationYffynapOXENEVOHUS2663-40-80 12:27:00 Test Item Value Reference Range Interpretation Comments Neutrophils # (test code = Neutrophils 4.5 1.5-8.1 #) [facility] StationDerhxdsGBJFPBWHXB4338-75-76 12:27:00 Test Item Value Reference Range Interpretation Comments Lymphocytes (test code = Lymphocytes) 19.9 20.0-40.0 [facility] StationPejsnxtEZUHBDTPRV1388-34-56 12:27:00 Test Item Value Reference Range Interpretation Comments Monocytes (test code = Monocytes) 8.8 2.0-12.0 [facility] StationOgcwksbOQZRQWPFTG6721-81-88 12:27:00 Test Item Value Reference Range Interpretation Comments Segs (test code = Segs) 66.4 45.0-75.0 [facility] StationLtfpledWJAYHELOPJ3548-13-67 12:27:00 Test Item Value Reference Range Interpretation Comments Eosinophils # (test code 0.3 See_Comment [A utomated message] The = Eosinophils #) system whic h generated this result tra nsmitted reference range : <=0.5. The reference r ondina was not used to int erpret this result as normal/abnormal . [facility] StationXezhqwhTEJWSOMPCY2560-54-80 12:27:00 Test Item Value Reference Range Interpretation Comments Basophils (test code = 1.0 See_Comment [Aut omated message] The Basophils) system which ge nerated this result tra nsmitted reference range : <=1.0. The reference r ondina was not used to int erpret this result as normal/abnormal . [facility] StationWdlzxrsMXMZVKLYGB3520-81-60 12:27:00 Test Item Value Reference Range Interpretation Comments Eosinophils (test code = 3.9 See_Comment [A utomated message] The Eosinophils) system which ge nerated this result tra nsmitted reference range : <=4.0. The reference r ondina was not used to int erpret this result as normal/abnormal . [facility]2018-12-19 10:35:00 Test Item Value Reference Range Interpretation Comments Calcium Lvl (test code = Calcium Lvl) 7.8 8.5-10.5 [facility]2018-12-19 10:35:00 Test Item Value Reference Range Interpretation Comments eGFR (test code = eGFR) 112 [facility]2018-12-19 10:35:00 Test Item Value Reference Range Interpretation Comments Creatinine Lvl (test code = Creatinine 0.56 0.50-1.40 Lvl) [facility]2018-12-19 10:35:00 Test Item Value Reference Range Interpretation Comments Phosphorus (test code = Phosphorus) 2.9 2.5-4.5 [facility]2018-12-19 10:35:00 Test Item Value Reference Range Interpretation Comments Glucose Lvl (test code = Glucose Lvl) 89 70-99 [facility]2018-12-19 10:35:00 Test Item Value Reference Range Interpretation Comments CO2 (test code = CO2) 25 24-32 [facility]2018-12-19 10:35:00 Test Item Value Reference Range Interpretation Comments BUN (test code = BUN) 9 7-22 [facility]2018-12-19 10:35:00 Test Item Value Reference Range Interpretation Comments Albumin Lvl (test code = Albumin Lvl) 2.1 3.5-5.0 [facility]2018-12-19 10:35:00 Test Item Value Reference Range Interpretation Comments Chloride Lvl (test code = Chloride Lvl) 111 95-109 [facility]2018-12-19 10:35:00 Test Item Value Reference Range Interpretation Comments Sodium Lvl (test code = Sodium Lvl) 144 135-145 [facility]2018-12-19 10:35:00 Test Item Value Reference Range Interpretation Comments Potassium Lvl (test code = Potassium 3.6 3.5-5.1 Lvl) [facility]2018-12-19 10:35:00 Test Item Value Reference Range Interpretation Comments AGAP (test code = AGAP) 11.6 10.0-20.0 [facility] StationXrynkxkVIKAGYRHUF1940-76-11 10:35:00 Test Item Value Reference Range Interpretation Comments Hgb (test code = Hgb) 9.0 14.0-18.0 [facility] StationOzegewiUTHCWCJADM2539-79-42 10:35:00 Test Item Value Reference Range Interpretation Comments RBC (test code = RBC) 3.53 4.70-6.10 [facility] StationGacznfdUVBNNEVBRT4589-43-14 10:35:00 Test Item Value Reference Range Interpretation Comments MCV (test code = MCV) 81.1 80.0-94.0 [facility] StationRuilyhnSKXJIGFQEA7125-26-17 10:35:00 Test Item Value Reference Range Interpretation Comments Hct (test code = Hct) 28.6 42.0-54.0 [facility] StationUqpseinDHPDHRFHOF6122-62-94 10:35:00 Test Item Value Reference Range Interpretation Comments WBC (test code = WBC) 6.9 3.7-10.4 [facility] StationAkonjdqAHKUHAIXFF0319-99-13 10:35:00 Test Item Value Reference Range Interpretation Comments MPV (test code = MPV) 7.8 7.4-10.4 [facility] StationBxljejhALMVMBTRDS6436-70-98 10:35:00 Test Item Value Reference Range Interpretation Comments Platelet (test code = Platelet) 294 133-450 [facility] StationXzvvtwhQCNJPEZFDH6931-73-07 10:35:00 Test Item Value Reference Range Interpretation Comments RDW (test code = RDW) 17.5 11.5-14.5 [facility] StationSlnizylOYJNORCFWJ2147-10-82 10:35:00 Test Item Value Reference Range Interpretation Comments MCHC (test code = MCHC) 31.7 32.0-36.0 [facility] StationIjhexaaHPMAAYPLOE8044-14-25 10:35:00 Test Item Value Reference Range Interpretation Comments MCH (test code = MCH) 25.7 pg 27.0-31.0 [facility] StationCksmqswQVKENMAXCB5896-81-35 10:35:00 Test Item Value Reference Range Interpretation Comments Lymphocytes (test code = Lymphocytes) 18.5 20.0-40.0 [facility] StationSjskafpDQMCUKOANJ7038-02-46 10:35:00 Test Item Value Reference Range Interpretation Comments Segs (test code = Segs) 67.0 45.0-75.0 [facility] StationBskvblaDMWOFPCYXQ7641-87-01 10:35:00 Test Item Value Reference Range Interpretation Comments Monocytes (test code = Monocytes) 9.8 2.0-12.0 [facility] StationXjiivcuOTECVRTLFM3415-16-43 10:35:00 Test Item Value Reference Range Interpretation Comments Basophils (test code = 1.0 See_Comment [Aut omated message] The Basophils) system which ge nerated this result tra nsmitted reference range : <=1.0. The reference r ondina was not used to int erpret this result as normal/abnormal . [facility] StationKzfyfuuLFYNMGLDDN3481-89-74 10:35:00 Test Item Value Reference Range Interpretation Comments Eosinophils (test code = 3.7 See_Comment [A utomated message] The Eosinophils) system which ge nerated this result tra nsmitted reference range : <=4.0. The reference r ondina was not used to int erpret this result as normal/abnormal . [facility] StationFabfbajMACIEVYMIB9871-47-62 10:35:00 Test Item Value Reference Range Interpretation Comments Monocytes # (test code 0.7 See_Comment [Aut omated message] The = Monocytes #) system which generated this result tra nsmitted reference range : <=0.8. The reference r ondina was not used to int erpret this result as normal/abnormal . [facility] StationLterysfHWIJTAKALU4263-37-12 10:35:00 Test Item Value Reference Range Interpretation Comments Lymphocytes # (test code = Lymphocytes 1.3 1.0-5.5 #) [facility] StationFpoeqjpVCYOFOSFOS9191-87-43 10:35:00 Test Item Value Reference Range Interpretation Comments Neutrophils # (test code = Neutrophils 4.6 1.5-8.1 #) [facility] StationQpvewdvEXMRFOFDFS0084-75-83 10:35:00 Test Item Value Reference Range Interpretation Comments Basophils # (test code 0.1 See_Comment [Aut omated message] The = Basophils #) system which generated this result tra nsmitted reference range : <=0.2. The reference r ondina was not used to int erpret this result as normal/abnormal . [facility] StationTodwzdsPZUWSWFOEE1552-55-15 10:35:00 Test Item Value Reference Range Interpretation Comments Eosinophils # (test code 0.3 See_Comment [A utomated message] The = Eosinophils #) system whic h generated this result tra nsmitted reference range : <=0.5. The reference r ondina was not used to int erpret this result as normal/abnormal . [place] [id number] 10:35:00 Test Item Value Reference Range Interpretation Comments Vanco Tr (test code = Vanco Tr) 21.8 [place] [id number] 10:35:00 Test Item Value Reference Range Interpretation Comments Vanco Tr TND (test code = Vanco Tr 0500 1 TND) [facility]XjzuyfkNTVLYRORONNU9833-50-72 10:29:00 Test Item Value Reference Range Interpretation Comments AGAP (test code = AGAP) 11.4 10.0-20.0 [facility] HospitalHpoiupgTIJIKSDNWMGM5008-93-78 10:29:00 Test Item Value Reference Range Interpretation Comments Chloride Lvl (test code = Chloride Lvl) 111 95-109 [facility] HospitalNfhdvzdNNBQMRFCJZDS1625-42-21 10:29:00 Test Item Value Reference Range Interpretation Comments Sodium Lvl (test code = Sodium Lvl) 144 135-145 [facility] HospitalOvcyontYEZYUJAJRXEN2325-76-10 10:29:00 Test Item Value Reference Range Interpretation Comments Potassium Lvl (test code = Potassium 3.4 3.5-5.1 Lvl) [facility]ps[facility]ZHVFSIKUMVEV2455[facility] 10:29:00 Test Item Value Reference Range Interpretation Comments Calcium Lvl (test code = Calcium Lvl) 7.6 8.5-10.5 [facility] HospitalGtmvgxrJRLSWNGSJNLP3798-07-06 10:29:00 Test Item Value Reference Range Interpretation Comments Glucose Lvl (test code = Glucose Lvl) 85 70-99 [facility] HospitalIwfctgoWVKGYYIFQLFL9021-48-63 10:29:00 Test Item Value Reference Range Interpretation Comments eGFR (test code = eGFR) 114 [facility] HospitalLoowdtdIPDJDQJXAQQG6191-80-25 10:29:00 Test Item Value Reference Range Interpretation Comments Creatinine Lvl (test code = Creatinine 0.54 0.50-1.40 Lvl) [facility] HospitalKoolhksSYJJUVMNJXLJ2026-20-69 10:29:00 Test Item Value Reference Range Interpretation Comments BUN (test code = BUN) 8 7-22 [facility] HospitalEhxogqaXWNGFWOWBZXR4192-31-47 10:29:00 Test Item Value Reference Range Interpretation Comments CO2 (test code = CO2) 25 24-32 [facility]KgefpurMABXPSPBCX2507-71-32 10:29:00 Test Item Value Reference Range Interpretation Comments Platelet (test code = Platelet) 275 133-450 [facility]borUvomzhfLHDNYRIESD8630-32-55 10:29:00 Test Item Value Reference Range Interpretation Comments RDW (test code = RDW) 17.0 11.5-14.5 [facility] StationKnvhdvdPQEBNKWBNG2957-20-73 10:29:00 Test Item Value Reference Range Interpretation Comments MCHC (test code = MCHC) 32.4 32.0-36.0 [facility]ZwojhodMEIILCSPWJ1683-41-95 10:29:00 Test Item Value Reference Range Interpretation Comments MCH (test code = MCH) 26.1 pg 27.0-31.0 [facility] StationYcuwjdhOEJKNWTJNU4921-88-72 10:29:00 Test Item Value Reference Range Interpretation Comments MCV (test code = MCV) 80.5 80.0-94.0 [facility] StationEhpqgljCTZNXSTBLR1253-63-05 10:29:00 Test Item Value Reference Range Interpretation Comments Hct (test code = Hct) 27.5 42.0-54.0 [facility] StationCpcvncmBLVKSVZCLG1889-59-77 10:29:00 Test Item Value Reference Range Interpretation Comments RBC (test code = RBC) 3.42 4.70-6.10 [facility] StationIkwcehvFNWYGUBUZV5433-25-23 10:29:00 Test Item Value Reference Range Interpretation Comments Hgb (test code = Hgb) 8.9 14.0-18.0 [facility] StationQhqazjyCHLFBTPHYX7866-01-63 10:29:00 Test Item Value Reference Range Interpretation Comments WBC (test code = WBC) 6.9 3.7-10.4 [facility] StationOhdhndmSGTTYQAKIM5505-11-30 10:29:00 Test Item Value Reference Range Interpretation Comments MPV (test code = MPV) 8.0 7.4-10.4 [facility] StationBdgfhxmYTBAMTPTLB0872-39-32 10:29:00 Test Item Value Reference Range Interpretation Comments Monocytes # (test code 0.7 See_Comment [Aut omated message] The = Monocytes #) system which generated this result tra nsmitted reference range : <=0.8. The reference r ondina was not used to int erpret this result as normal/abnormal . [facility] StationHirzxvaEWJCQSCMAM2092-05-72 10:29:00 Test Item Value Reference Range Interpretation Comments Lymphocytes # (test code = Lymphocytes 1.6 1.0-5.5 #) [facility] Stati[id number] 10:29:00 Test Item Value Reference Range Interpretation Comments Eosinophils # (test code 0.3 See_Comment [A utomated message] The = Eosinophils #) system [facility] h generated this result tra nsmitted reference range : <=0.5. The reference r ondina was not used to int erpret this result as normal/abnormal . [facility] StationWwsrrfeGOQVNTIIYC6840-68-17 10:29:00 Test Item Value Reference Range Interpretation Comments Lymphocytes (test code = Lymphocytes) 23.6 20.0-40.0 [facility] StationXpsnzimQNAVLDOGNK9835-14-69 10:29:00 Test Item Value Reference Range Interpretation Comments Monocytes (test code = Monocytes) 10.1 2.0-12.0 [facility] StationFhavdlzEYJYOIHJTI1280-84-73 10:29:00 Test Item Value Reference Range Interpretation Comments Eosinophils (test code = 3.9 See_Comment [A utomated message] The Eosinophils) system which ge nerated this result tra nsmitted reference range : <=4.0. The reference r ondina was not used to int erpret this result as normal/abnormal . [facility] StationSlbwjzsLCDVRZRGEV1700-84-47 10:29:00 Test Item Value Reference Range Interpretation Comments Basophils (test code = 0.7 See_Comment [Aut omated message] The Basophils) system which ge nerated this result tra nsmitted reference range : <=1.0. The reference r ondina was not used to int erpret this result as normal/abnormal . [facility] StationDvkrnedNGJUGNSCVN6568-13-53 10:29:00 Test Item Value Reference Range Interpretation Comments Neutrophils # (test code = Neutrophils 4.2 1.5-8.1 #) [facility] StationIwlgkthKXTCSKKYLD0162-51-79 10:29:00 Test Item Value Reference Range Interpretation Comments Segs (test code = Segs) 61.7 45.0-75.0 [facility] StationVtsguewZZKNZDUYQM6083-45-56 11:52:00 Test Item Value Reference Range Interpretation Comments Basophils # (test code 0.1 See_Comment [Aut omated message] The = Basophils #) system which generated this result tra nsmitted reference range : <=0.2. The reference r ondina was not used to int erpret this result as normal/abnormal . [facility] CampusannBACTERIAL - [id number] 23:42:00 Test Item Value Reference Range Interpretation Comments MRSA by PCR (test Negative (02/16/18 5:42 code = MRSA by PCR) PM) [facility] RockVkstmtfQHEOLRPQVP6462-36-68 12:00:00 Test Item Value Reference Range Interpretation Comments Vanco Tr TND (test code = Vanco Tr 0530 1 TND) [facility] RockEdbscmmOGARENCJHS5071-55-34 12:00:00 Test Item Value Reference Range Interpretation Comments Vanco Tr (test code = Vanco Tr) 6.7 [facility] RockFespulsUMEBECXBMI4210-90-71 22:11:00 Test Item Value Reference Range Interpretation Comments PTT (test code = PTT) 38.4 s 22.9-35.8 [facility] CampusannCulture: Yakalbbcp2742-59-41 22:47:00 Test Item Value Reference Range Interpretation Comments Culture: Anaerobic No Anaerobes Isolated (test code = Culture: Anaerobic) [facility] RockGram Stain [id number] 22:47:00 Test Item Value Reference Range Interpretation Comments Gram Stain Report Rare WBC's No Organisms (test code = Gram Seen Stain Report) [facility]annCulture: Aspirate/Body Fluid/[id number] 22:47:00 Test Item Value Reference Range Interpretation Comments Culture: Aspirate/Body Fluid/Tissue No Growth (test code = Culture: Aspirate/Body Fluid/Tissue) [facility]annCulture: Kscodaxpf6547-01-72 22:40:00 Test Item Value Reference Range Interpretation Comments Culture: Anaerobic No Anaerobes Isolated (test code = Culture: Anaerobic) [facility] CampusannGram Stain [id number] 22:40:00 Test Item Value Reference Range Interpretation Comments Gram Stain Report Rare WBC's No Organisms (test code = Gram Seen Stain Report) [facility]annCulture: Aspirate/Body Fluid/[id number] 22:40:00 Test Item Value Reference Range Interpretation Comments Culture: Aspirate/Body Fluid/Tissue No Growth (test code = Culture: Aspirate/Body Fluid/Tissue) [facility] CampusMycoTechnology [id number] 09:55:00 Test Item Value Reference Range Interpretation Comments Antibody Scrn (test Negative (02/14/18 code = Antibody Scrn) 3:55 AM) [facility] [employer] [id number] 09:55:00 Test Item Value Reference Range Interpretation Comments ABO/Rh (test code = ABO/Rh) A POS [facility] [employer] [id number] 09:55:00 Test Item Value Reference Range Interpretation Comments B/C Ratio (test code = B/C Ratio) 14 1 6-25 [facility] [employer] [id number] 09:55:00 Test Item Value Reference Range Interpretation Comments Globulin (test code = Globulin) 5.3 2.7-4.2 [facility] [employer] [id number] 09:55:00 Test Item Value Reference Range Interpretation Comments A/G Ratio (test code = A/G Ratio) 0.5 1 0.7-1.6 [facility] [employer] [id number] 09:55:00 Test Item Value Reference Range Interpretation Comments Albumin Lvl (test code = Albumin Lvl) 2.8 3.5-5.0 [facility] [employer] [id number] 09:55:00 Test Item Value Reference Range Interpretation Comments Alk Phos (test code = Alk Phos) 92 39-136 [facility] [employer] [id number] 09:55:00 Test Item Value Reference Range Interpretation Comments ALT (test code = ALT) 21 See_Comment [Auto mated message] The system which ge nerated this result transmit garrett reference range : <=65. The reference range was not used to interpr et this result as cassie l/abnormal. [facility] [employer] [id number] 09:55:00 Test Item Value Reference Range Interpretation Comments AST (test code = AST) 15 See_Comment [Auto mated message] The system which ge nerated this result transmit garrett reference range : <=37. The reference range was not used to interpr et this result as cassie l/abnormal. [facility] [employer] [id number] 09:55:00 Test Item Value Reference Range Interpretation Comments Total Protein (test code = Total 8.1 6.4-8.4 Protein) [facility] HermAtrium [id number] 09:55:00 Test Item Value Reference Range Interpretation Comments Bili Total (test code = Bili Total) 0.2 0.2-1.3 [facility] StationXwjceeaYNDPAAYVOR1903-07-83 09:55:00 Test Item Value Reference Range Interpretation Comments PTT (test code = PTT) 35.4 s 22.9-35.8 [facility] StationDvwlrlePCDRRFFVIA4150-37-25 09:55:00 Test Item Value Reference Range Interpretation Comments PT (test code = PT) 13.4 s 12.0-14.7 [facility] StationLuitktwMJHJVYYFQR7497-85-98 09:55:00 Test Item Value Reference Range Interpretation Comments INR (test code = INR) 1.04 1 0.85-1.17 [facility]2018-12-13 03:06:00 Test Item Value Reference Range Interpretation Comments Lactic Acid Lvl (test code = Lactic 1.3 0.5-2.2 Acid Lvl) [facility] StationQucqlnxWZCWCHQMQJ8173-04-16 03:06:00 Test Item Value Reference Range Interpretation Comments Sed Rate (test code = 60 See_Comment [Auto mated message] The Sed Rate) system which ge nerated this result transmit garrett reference range : <=15. The reference range was not used to interpr et this result as cassie l/abnormal. [facility]ANK [id number] 01:24:00 Test Item Value Reference Range Interpretation Comments RBC product (test code Product available = RBC product) 4(02/13/18 7:24 PM) [facility] [id number] 01:00:00 Test Item Value Reference Range Interpretation Comments UA Hyal Cast (test 4 See_Comment [Automat ed message] The code = UA Hyal Cast) system which generated this result transmit garrett reference range : <=2. The reference range was not used to interpr et this result as cassie l/abnormal. [facility] AND [id number] 01:00:00 Test Item Value Reference Range Interpretation Comments UA Mucus (test code = UA Mucus) Many /LPF [facility] AND [id number] 01:00:00 Test Item Value Reference Range Interpretation Comments UA WBC (test code = 1 See_Comment [Automa garrett message] The UA WBC) system which ge nerated this result transmit garrett reference range : <=5. The reference range was not used to interpr et this result as cassie l/abnormal. [facility] AND [id number] 01:00:00 Test Item Value Reference Range Interpretation Comments UA Protein (test code Negative (02/13/18 7:00 = UA Protein) PM) [facility] [id number] 01:00:00 Test Item Value Reference Range Interpretation Comments UA Spec Grav (test code = UA Spec 1.013 1 Grav) [facility] [id number] 01:00:00 Test Item Value Reference Range Interpretation Comments UA pH (test code = UA pH) 6.0 1 5.0-8.0 [facility] AND [id number] 01:00:00 Test Item Value Reference Range Interpretation Comments UA Nitrite (test code Negative (02/13/18 7:00 = UA Nitrite) PM) [facility] [id number] 01:00:00 Test Item Value Reference Range Interpretation Comments UA Blood (test code = Negative (02/13/18 7:00 UA Blood) PM) [facility] AND [id number] 01:00:00 Test Item Value Reference Range Interpretation Comments UA Bili (test code = Negative *NA*(02/13/18 UA Bili) 7:00 PM) [facility] [id number] 01:00:00 Test Item Value Reference Range Interpretation Comments UA Ketones (test code = UA Ketones) Negative [facility] [id number] 01:00:00 Test Item Value Reference Range Interpretation Comments UA Glucose (test code Negative *NA*(02/13/18 = UA Glucose) 7:00 PM) [facility] [id number] 01:00:00 Test Item Value Reference Range Interpretation Comments UA Sq Epi (test code = UA Sq Occasional /LPF Epi) [facility] [id number] 01:00:00 Test Item Value Reference Range Interpretation Comments UA Leuk Est (test Negative (02/13/18 7:00 code = UA Leuk Est) PM) [facility] AND [id number] 01:00:00 Test Item Value Reference Range Interpretation Comments UA Urobilinogen (test code = UA <=1.0 mg/dL 0.1-1.0 Urobilinogen) [facility] [id number] 01:00:00 Test Item Value Reference Range Interpretation Comments UA Color (test code = Yellow *NA*(02/13/18 UA Color) 7:00 PM) [facility] [id number] 01:00:00 Test Item Value Reference Range Interpretation Comments UA Turbidity (test code = Clear (02/13/18 7:00 UA Turbidity) PM) [facility] [id number] 22:30:00 Test Item Value Reference Range Interpretation Comments D-Dimer (test code = D-Dimer) 0.55 [facility] OnxkrtcFQPASTZDSH1720-93-85 22:30:00 Test Item Value Reference Range Interpretation Comments C-REACTIVE PROTEIN (test code = 48.5 C-REACTIVE PROTEIN) [facility]annCARDIAC [id number] 22:30:00 Test Item Value Reference Range Interpretation Comments Total CK (test code = Total CK) 26 12-191 [facility]annCARD[facility]AC [id number] 22:30:00 Test Item Value Reference Range Interpretation Comments BNP (test code = BNP) 81 [facility]annC[facility] [id number] 22:30:00 Test Item Value Reference Range Interpretation Comments Troponin-I (test code no gt See_Comment [Auto mated message] The = Troponin-I) system which g enerated this result transmit garrett reference range : <=0.40. The reference r ondina was not used to interpr et this result as cassie l/abnormal. [facility] [employer]CHEM [id number] 22:30:00 Test Item Value Reference Range Interpretation Comments Lactic Acid Lvl (test code = Lactic 2.1 0.5-2.2 Acid Lvl) [facility]annCHE[facility] [id number] 22:30:00 Test Item Value Reference Range Interpretation Comments B/C Ratio (test code = B/C Ratio) 10 1 6-25 [facility] [employer]ann[facility] [id number] 22:30:00 Test Item Value Reference Range Interpretation Comments Globulin (test code = Globulin) 4.7 2.7-4.2 [facility]annCHE[facility] [id number] 22:30:00 Test Item Value Reference Range Interpretation Comments A/G Ratio (test code = A/G Ratio) 0.6 1 0.7-1.6 [facility]2018-12-12 22:30:00 Test Item Value Reference Range Interpretation Comments Total Protein (test code = Total 7.6 6.4-8.4 Protein) [facility]2018-12-12 22:30:00 Test Item Value Reference Range Interpretation Comments Bili Total (test code = Bili Total) 0.4 0.2-1.3 [facility]2018-12-12 22:30:00 Test Item Value Reference Range Interpretation Comments AST (test code = AST) 13 See_Comment [Auto mated message] The system which ge nerated this result transmit garrett reference range : <=37. The reference range was not used to interpr et this result as cassie l/abnormal. [facility]2018-12-12 22:30:00 Test Item Value Reference Range Interpretation Comments Alk Phos (test code = Alk Phos) 95 39-136 [facility]2018-12-12 22:30:00 Test Item Value Reference Range Interpretation Comments ALT (test code = ALT) 18 See_Comment [Auto mated message] The system which ge nerated this result transmit garrett reference range : <=65. The reference range was not used to interpr et this result as cassie l/abnormal. [place] [id number] 22:30:00 Test Item Value Reference Range Interpretation Comments Albumin Lvl (test code = Albumin Lvl) 2.9 3.5-5.0 [facility]
[2021-11-20 17:11] LABS: Absolute Lymphocytes (CBC) 1.4 K/uL (0.7-4.9); Hematocrit 45.5 % (39.6-49.0); Lymphocytes % 21.9 % (15.3-44.8); MCV 91.9 fL (80-100); MPV 8.7 fL (7.6-11.3); RBC Red Blood Cell Count 4.95 M/uL (4.33-5.43)
[2021-11-20 17:31] LABS: Potassium 3.6 mmol/L (3.5-5.1); Troponin High Sensitivity 9.9 pg/mL (<58.9)
--- NOTE | 2021-11-20 17:54 | RAD REPORT ---
EXAM DESCRIPTION: RAD - Chest Single View - 11/20/2021 5:25 pm CLINICAL HISTORY: DYSPNEA COMPARISON: Portable 08/15/2018 TECHNIQUE: AP portable chest image was obtained 11/20/2021 5:25 pm . FINDINGS: Lungs are clear. Interstitial pattern matches comparison. Heart and vasculature are normal . No measurable pleural effusion and no pneumothorax. No acute bony abnormality seen. No acute aortic findings suspected. IMPRESSION: No acute cardiopulmonary process. No significant change from comparison study.
--- NOTE | 2021-11-20 18:29 | ER ---
Nurse's Notes [facility] Name: Fred Hardy Age: 66 yrs Sex: Male : 1955 Arrival Date: 11/20/2021 Time: 16:38 Bed 19 Private MD: Diagnosis: Dyspnea Presentation: 11/20 16:42 Chief complaint: Patient states: "patient states being SOB and feeling weak and tired. em6 NSR BP systolic 190's. no chest pain patient just states "feeling lost.". Coronavirus screen: At this time, the client does not indicate any symptoms associated with coronavirus-19. Ebola Screen: Patient negative for fever greater than or equal to 101.5 degrees Fahrenheit, and additional compatible Ebola Virus Disease symptoms. Initial Sepsis Screen: Does the patient meet any 2 criteria? No. Patient's initial sepsis screen is negative. Does the patient have a suspected source of infection? No. Patient's initial sepsis screen is negative. Risk Assessment: Do you want to hurt yourself or someone else? Patient reports no desire to harm self or others. Onset of symptoms was November 20, 2021. 16:42 Method Of Arrival: EMS: [facility] em6 16:42 Acuity: JOSÉ MIGUEL 3 em6 Triage Assessment: 16:45 General: Appears in no apparent distress. Behavior is calm, cooperative. Pain: Denies em6 pain. Historical: - Allergies: 16:46 IV contrast; em6 16:46 PENICILLINS; em6 - PMHx: 16:46 Hyperlipidemia; Hypertension; em6 - Immunization history:: Adult Immunizations unknown. - Social history:: Smoking status: unknown. Screenin:45 Abuse screen: Denies threats or abuse. Nutritional screening: No deficits noted. em6 Tuberculosis screening: No symptoms or risk factors identified. Fall Risk IV access (20 points). Total Kee Fall Scale indicates No Risk (0-24 pts). Assessment: 16:42 General: Appears in no apparent distress. Behavior is calm, cooperative. Pain: Denies em6 pain. Neuro: Britt Agitation-Sedation Scale (RASS): 0 - Alert and Calm Level of Consciousness is awake, alert, obeys commands, Oriented to person, place, time, situation. Cardiovascular: Heart tones present Patient's skin is warm and dry. Rhythm is sinus rhythm. Respiratory: Reports shortness of breath Airway is patent Respiratory effort is even, unlabored, Respiratory pattern is regular, symmetrical, Breath sounds are clear bilaterally. GI: : No signs and/or symptoms were reported regarding the genitourinary system. EENT: No signs and/or symptoms were reported regarding the EENT system. Derm: No signs and/or symptoms reported regarding the dermatologic system. Musculoskeletal: Circulation, motion, and sensation intact. Range of motion: intact in all extremities. 17:51 Reassessment: Patient appears in no apparent distress at this time. No changes from em6 previously documented assessment. Patient is alert, oriented x 3, equal unlabored respirations, skin warm/dry/pink. Vital Signs: 16:42 BP 153 / 98; Pulse 81; Resp 18; Temp 98.2; Pulse Ox 95% on R/A; Weight 95.71 kg; Height em6 5 ft. 11 in. (180.34 cm); Pain 0/10; 18:39 BP 159 / 99; Pulse 76; Resp 17; Pulse Ox 100% on R/A; em6 16:42 Body Mass Index 29.43 (95.71 kg, 180.34 cm) em6 ED Course: 16:38 Patient arrived in ED. kb 16:38 Nayeli Méndez FNP-C is PHCP. kb 16:38 Joel Shah DO is Attending Physician. kb 16:45 Triage completed. em6 16:45 Arm band placed on. em6 16:46 Patient has correct armband on for positive identification. Bed in low position. Call em6 light in reach. Side rails up X2. monitoring analyst on. Pulse ox on. NIBP on. Warm blanket given. 17:02 COVID-19 SARS RT PCR (Document "Date of Onset" if Symptomatic) Sent. em6 18:40 No provider procedures requiring assistance completed. IV discontinued, intact, em6 bleeding controlled, No redness/swelling at site. Pressure dressing applied. Administered Medications: No medications were administered Medication: 18:40 VIS not applicable for this client. em6 Outcome: 18:29 Discharge ordered by . kb 18:40 Discharged to home ambulatory, with significant other. em6 18:40 Condition: stable 18:40 Discharge instructions given to patient, significant other, Instructed on discharge instructions, follow up and referral plans. Demonstrated understanding of instructions, follow-up care. 18:40 Patient left the ED. em6 Signatures: Nayeli Méndez, CATIEC GEORGINA-Yun Ramirez, RN RN em6
--- NOTE | 2021-11-20 18:29 | EDPHYS ---
Physician Documentation [facility] [place] Name: Fred Hardy Age: 66 yrs Sex: Male : 1955 Arrival Date: 11/20/2021 Time: 16:38 Bed 19 Private MD: ED Physician Joel Shah HPI: 11/20 23:41 This 66 yrs old Male presents to ER via EMS with complaints of Shortness Of Breath. kb 23:41 The patient has shortness of breath at rest. Onset: The symptoms/episode began/occurred kb this morning. Duration: The symptoms are continuous. The patient's shortness of breath is aggravated by nothing, is alleviated by nothing. Associated signs and symptoms: The patient has no apparent associated signs or symptoms, Pertinent negatives: chest pain, non-productive cough, productive cough. Severity of symptoms: At their worst the symptoms were mild in the emergency department the symptoms are unchanged. The patient has not experienced similar symptoms in the past. The patient has not recently seen a physician. Pt reports shortness of breath that started this morning. States he had a couple of instances of confusion this morning such as he needed to go to the restroom but walked into the kitchen. Pt awake, alert and oriented at this time. . Historical: - Allergies: 16:46 IV contrast; em6 16:46 PENICILLINS; em6 - PMHx: 16:46 Hyperlipidemia; Hypertension; em6 - Immunization history:: Adult Immunizations unknown. - Social history:: Smoking status: unknown. ROS: 23:40 Constitutional: Negative for fever, chills, and weight loss. kb 23:40 Respiratory: Positive for shortness of breath, Negative for cough, dyspnea on exertion, hemoptysis, orthopnea, pleurisy, sputum production, wheezing. 23:40 All other systems are negative. Exam: 17:03 Constitutional: This is a well developed, well nourished patient who is awake, alert, kb and in no acute distress. Head/Face: Normocephalic, atraumatic. ENT: Moist Mucous membranes Cardiovascular: Regular rate and rhythm with a normal S1 and S2. No gallops, murmurs, or rubs. No pulse deficits. Respiratory: Respirations even and unlabored. No increased work of breathing. Talking in full sentences Abdomen/GI: Soft, non-tender. No distention Skin: Warm, dry with normal turgor. Normal color. MS/ Extremity: Pulses equal, no cyanosis. Neurovascular intact. Full, normal range of motion. Neuro: Awake and alert, GCS 15, oriented to person, place, time, and situation. Moves all extremities. Normal gait. Psych: Awake, alert, with orientation to person, place and time. Behavior, mood, and affect are within normal limits. 17:03 ECG was reviewed by the Attending Physician. Vital Signs: 16:42 BP 153 / 98; Pulse 81; Resp 18; Temp 98.2; Pulse Ox 95% on R/A; Weight 95.71 kg; Height em6 5 ft. 11 in. (180.34 cm); Pain 0/10; 18:39 BP 159 / 99; Pulse 76; Resp 17; Pulse Ox 100% on R/A; em6 16:42 Body Mass Index 29.43 (95.71 kg, 180.34 cm) em6 MDM: 16:38 Patient medically screened. kb 23:39 Data reviewed: vital signs, nurses notes. Data interpreted: Pulse oximetry: on room air kb is 100 %. Interpretation: normal. Counseling: I had a detailed discussion with the patient and/or guardian regarding: the historical points, exam findings, and any diagnostic results supporting the discharge/admit diagnosis, lab results, radiology results, the need for outpatient follow up, a family practitioner, to return to the emergency department if symptoms worsen or persist or if there are any questions or concerns that arise at home. ED course: Pt nontoxic in appearance. Resp even and unlabored, lungs clear throughout, O2 sat maintained above 96% on room air. Pt educated on diagnostic results and he wants to go home. Educated to return for worsening symptoms or new symptoms including chest pain. . 11/20 16:39 Order name: Basic Metabolic Panel; Complete Time: 17:32 kb 11/20 16:39 Order name: CBC with Diff; Complete Time: 17:16 kb 11/20 16:39 Order name: D-Dimer; Complete Time: 17:21 kb 11/20 16:39 Order name: Magnesium; Complete Time: 17:32 kb 11/20 16:39 Order name: NT PRO-BNP; Complete Time: 17:32 kb 11/20 16:39 Order name: Troponin HS; Complete Time: 17:32 kb 11/20 16:39 Order name: XRAY Chest (1 view) kb 11/20 16:39 Order name: EKG; Complete Time: 16:40 kb 11/20 16:39 Order name: Cardiac monitoring; Complete Time: 17:02 kb 11/20 16:39 Order name: EKG - Nurse/Tech; Complete Time: 17:02 kb 11/20 16:39 Order name: IV Saline Lock; Complete Time: 17:02 kb 11/20 16:39 Order name: Labs collected and sent; Complete Time: 17:02 kb 11/20 16:39 Order name: COVID-19 SARS RT PCR (Document "Date of Onset" if Symptomatic); Complete kb Time: 17:27 11/20 17:55 Order name: RAD; Complete Time: 18:02 EDMS 11/20 16:39 Order name: O2 Per Protocol; Complete Time: 17:02 kb 11/20 16:39 Order name: O2 Sat Monitoring; Complete Time: 17:02 kb EC:03 Rate is 82 beats/min. Rhythm is regular. QRS [place] is Normal. [place] interval is normal at kb 146 msec. QRS interval is normal at 88 msec. QT interval is normal at 443 msec. Administered Medications: No medications were administered Disposition: 17:25 Co-signature as Attending Physician, Joel Shah DO I was immediately available onsite ms3 in the emergency department for consultation in the care of the patient. Disposition Summary: 11/20/21 18:29 Discharge Ordered Location: Home kb Condition: Stable kb Diagnosis - Dyspnea kb Followup: kb - With: Emergency Department - When: As needed - Reason: Worsening of condition Followup: kb - With: Private Physician - When: 2 - 3 days - Reason: Recheck today's complaints, Continuance of care, Re-evaluation by your physician Discharge Instructions: - Discharge Summary Sheet kb - Shortness of Breath, Adult, [id number] kb - Panic Attack, [id number] kb Forms: - Medication Reconciliation Form kb - Thank You Letter kb - Antibiotic Education kb - Prescription Opioid Use kb Signatures: Dispatcher [employer] EDMS Nayeli Méndez, MOLD HOLDER-C GEORGINA-Joel Sharp DO DO ms3 Yun Sharp, RN RN em6
[2021-11-22 03:52] VITALS: TEMP 98.2
[2021-11-22 03:54] VITALS: BP 159/99; O2SAT 100
--- NOTE | 2021-11-23 06:40 | EKG ---
Test Date: 2021-11-20 Test Time: 16:54:16 Foundation Relations Manager: MEASUREMENT RESULTS: Intervals: Rate: 82 SD: 146 QRSD: 88 QT: 380 QTc: 443 [place]: P: -2 SD: 146 QRS: 58 T: 49 INTERPRETIVE STATEMENTS: Normal sinus rhythm Minimal voltage criteria for LVH, may be normal variant Inferior infarct, age undetermined Abnormal ECG Compared to ECG 08/15/2018 16:28:20 Left ventricular hypertrophy now present Myocardial infarct finding now present Electronically Signed On 11-23-21 06:32:33 CDT by Lonny Ascencio
== END 2021-11-20 18:40 | disposition home or self-care (01) ==
LOC: ER 16:35
DX: R06.00 Dyspnea, unspecified (principal); Z20.822 Contact with and (suspected) exposure to COVID-19
CPT/HCPCS: 93005; 85025; 80048; 36415; 83735; 85379; 84484; 83880; 71045; 99284; U0003

== ENCOUNTER 2022-08-31 13:01 | Emergency (ER) | payer OTHER ==
--- OUTSIDE RECORDS SUMMARY | 2022-08-31 13:26 | XMS REPORT | Continuity of Care Document ---
:1955 Author Organization [facility] t Address [address] [place] [address] Care Team Providers Name Role Phone Sharpless Primary Care Physician Jamal Red Attending Clinician Unavailable PABLO ALLEN Attending Clinician Unavailable VERITO BAILEY Attending Clinician Unavailable Pablo Allen DO Attending Clinician LAB90 Attending Clinician Unavailable KEYONA SUAZO Attending Clinician Unavailable KEYONA SUAZO Attending Clinician Unavailable Doctor Unassigned, [place] Attending Clinician Unavailable JD HINES Attending Clinician Unavailable Sami RUSSO Mahesheva Don Attending Clinician LUCITA CARBAJAL Attending Clinician Unavailable Tin KNUTOSN, Jd Attending Clinician Denny Del Real Primary Attending Clinician Unavailable Amrik ERICKSON, Arsen Attending Clinician ARSEN DIXON Attending Clinician Unavailable Sofia Gatica Attending Clinician [phone] Salome KNUTSON, Edin Ovalles Attending Clinician Gladys Land Attending Clinician Pepito Vasquez Attending Clinician Timothy Kam Attending Clinician Mimi Bernal Attending Clinician Hector Ahuja Attending Clinician Nghia Oneal Attending Clinician Jamie Rush Attending Clinician Brigido Medina Attending Clinician Chi Hastings Attending Clinician Jamal Red Admitting Clinician Unavailable Tyler Morocho Admitting Clinician Unavailable Gladys Land Admitting Clinician Timothy Kam Admitting Clinician Mimi Bernal Admitting Clinician Jamie Rush Admitting Clinician Chi Hastings Admitting Clinician Payers Payer Name Policy Type Policy Number Effective Date Expiration Date Eva FERREIRA MA DUAL 7 [id number] 2022 COMPLETE CAP(HMO 00:00:00 D-SNP OA) HU[employer] MEDICARE 7 [id number] 2021 [id number] GOLD 00:00:00 PLUS 2021 HUMANA 3 [id number] 2021 00:00:00 MEDICAID OF [place] [id number] 2021 00:00:00 [place] [facility]IMARY [id number] 2019 CARE 00:00:00 Problems Condition Condition Condition Status Onset Resolution Last Treating Co mments Source Name Details Category Date Date Treatment Clinician Date Mild major Mild major Disease Active Danette silvia depression depression 3-30 Se ybold 00:00: 00 PTSD PTSD Disease Active Kaela (post-trau (post-trau 3 Se ybold matic matic 00:00: stress stress 00 disorder) disorder) History of History of Disease Active Danette silvia four four 3 Seybold vessel vessel 00:00: coronary coronary 00 artery artery bypass bypass graft graft Primary Primary Disease Active Kaela hypertensi hypertensi 3- Se ybold on on 00:00: 00 Chronic Chronic Disease Active Kaela pain due pain due 3 Seybol d to trauma to trauma 00:00: 00 History of History of Disease Active Danette nabeelalcides TIAs TIAs 3- Seybold 00:00: 00 CHOLECYSTI Diagnosis Active 2018-08-17 Memoria TIS CHOLECYSTI 6-13 09:57:00 l TIS Active 00:00: Arsenio freedman 08/15/2018 00 [facility] ABDOMINAL ABDOMINAL Diagnosis Active 2018-08-16 Memoria PAIN PAIN 6-13 02:35:00 l Active 00:00: [place] 08/15/2018 00 [facility] BLAYNE-SEROMA BLAYNE-SEROMA Diagnosis Active 2018-06-21 Memoria Active 4-16 10:59:00 l 06/18/2018 00:00: Arsenio freedman [address] CHEST PAIN CHEST Diagnosis Active 2018-06-03 Memoria PAIN 3-31 15:02:00 l Active 00:00: [place] 06/02/[address] [facility] STERNAL STERNAL Diagnosis Active 2018-05-19 Memoria OSTEOMYELI OSTEOMYELI 3-07 06:57:00 l TIS TIS 00:00: [place] Active 00 05/09/[address] [facility] M86.61 - M86.61 - Diagnosis Active 2018-04-08 Memoria OTHER OTHER 2- 13:48:00 l CHRONIC CHRONIC 00:01: [place] OSTEOMYELI OSTEOMYELI 00 TIS, S TIS, S Active 04/05/2018 OPID [facility] ACUTE ACUTE Diagnosis Active 2017-032018-03-07 Mem oria EXACERBATI EXACERBATI 04-30 22:14:00 l ON OF ON OF 00:00: [place] CONGESTIVE CONGESTIVE 00 HEART F HEART F Active 02/27/[address] [facility] SHORTNESS SHORTNESS Diagnosis Active 2017-032018-02-28 Memoria OF BREATH OF BREATH 04-30 03:46:00 l Active 00:00: Arsenio n [address] DIFFICULTY DIFFICULT Diagnosis Active 2017-032018-02-27 Memoria BREATHING Y 04-30 23:09:00 l BREATHING 00:00: [place] Active 02/27/2018 [place] [facility] SOB, SOB, Diagnosis Active 2017-032018-02-28 Mem oria TACHYCARDI TACHYCARDI 04-16 22:16:00 l A A Active 00:00: [place] 02/13/[address] [place] [address] Dyspnea Dyspnea Disease Active 2017-03 Univers 1-12 ity of 00:00: [place] [address] Medical Branch Other Other Disease Active 2017-03 Univers chest pain chest pain 1-08 it y of 00:00: [place] [address] Medical Branch Cellulitis Cellulitis Disease Active 2017-03 U nivers of chest of chest 1-07 ity of wall wall 00:00: [place] [address] Medical Branch Elevated Elevated Disease Active 2017-03 Unive rs total total 0-10 ity of protein protein 00:00: [place] [address] Medical Branch GELY EGLY Disease Active Univers (obstructi (obstructi 9-17 it y of ve sleep ve sleep 00:00: [place] apnea) apnea) 00 Medical Branch Acute on Acute on Disease Active Unive rs chronic chronic 9-17 [place] of diastolic diastolic [place] congest[place]ive 00 Me dical heart heart Branch failure failure Weakness Weakness Disease Active Unive rs 9-16 ity of 00:00: [place] [address] Medical Branch SOB SOB Disease Active Univers (shortness (shortness 9-10 it y of of breath[place] of breath[place] [facility] [place] Patent Patent Disease Active Univers foramen foramen 9-06 ity of ovale ovale 00:00: [place] 00 Medical Branch S/P CABG x S/P CABG x Disease Active U nivers 4 4 8-31 ity of 00:00: [place] 00 Medical Branch Coronary Coronary Disease Active Overview: Un jody artery artery 8-30 Added ity of disease of disease of 00:00: automatic [place] 00 ally from Medical artery of artery of request [facility] [place] for heart with heart with surgery stable stable [id number] angina angina pectoris pectoris Coronary Coronary Disease Active Overview: Un jody artery artery 8-30 Formattin ity of disease of disease of 00:00: g of this [place] 00 note Medical artery of artery of might be Br anch [place] different heart with heart with from the stable stable original. angina angina Added pectoris pectoris automatic ally from request for surgery [id number] Coronary Coronary Disease Active Overview: Un jody artery artery 8-24 Added ity of disease disease 00:00: automatic [place] involving involving 00 ally from M edical [place] request Branch coronary coronary for artery of artery of surgery [place] [id number] heart with heart with other form other form of angina of angina pectoris pectoris Coronary Coronary Disease Active Overview: Un jody artery artery 8-24 Formattin ity of disease disease 00:00: g of this [place] involving involving 00 note Medi tenzin [place] might be Branch coronary coronary different artery of artery of from the [place] original. heart with heart with Added other form other form automatic of angina of angina ally from pectoris pectoris request for surgery [id number] Umbilical Umbilical Disease Active Overview: Univers hernia hernia 6-05 Formattin ity of without without 00:00: g of this [place] obstructio obstructio 00 note Me dical n and n and might be Branch without without different gangrene gangrene from the original. Added automatic ally from request for surgery [id number] Prediabete Prediabete Disease Active U nivers s s 4-16 ity of 00:00: [place] 00 Medical Branch Obesity Obesity Disease Active Univers (BMI (BMI 4-16 ity of 30.0-34.9) 30.0-34.9) [place]: [place] Dizziness Dizziness Disease Active Uni vers 4-10 ity of 00:00: [place] 00 Medical Branch Chest Chest Disease Active Univers tightness tightness 4-10 ity of 00:00: [place] 00 Medical Branch History of History of Disease Active U nivers CVA CVA 4-10 ity of (cerebrova (cerebrova 00:00: [place] scular scular 00 Medical accident) accident) Bran ch Hypertensi Hypertensi Disease Active U nivers on, on, 4-10 ity of unspecifie unspecifie 00:[place] d type d type 00 Medical [facility] Hyperlipid Hyperlipid Disease Active U nivers emia, emia, 4-10 ity of unspecifie unspecifie 00:00[place] d d 00 Medical hyperlipid hyperlipid Br anch emia type emia type Tobacco Tobacco Disease Active Univers use use 4-10 ity of disorder disorder 00:00: [place] 00 Medical Branch Sleep Sleep Disease Active Univers disorder disorder 4-10 ity of breathing breathing 00:00[place] 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 (dyspnea (dyspnea 4-10 ity of on on 00:00: [place] exertion) exertion) 00 [facility] tenzin Branch CVA CVA Disease Active [facility] [...] finding of lung field lung field 9 [facility] Infection Infection Problem 2018-10-24 Memoria following following 11:25:49 l a a [place] procedure, procedure, other other surgical surgical site, site, initial initial encounter encounter 10/24/2018 [facility] Localized Localized Problem 2018-10-24 Memoria enlarged enlarged 11:25:49 l lymph lymph [place] nodes nodes 10/24/2018 [facility] Other Other Problem 2018-10-24 Memor ia specified specified 11:25:49 l postproced postproced He rmann ural ural states states 10/24/2018 [facility] Presence Presence Problem 2018-10-24 Memoria of of 11:25:49 l aortocoron aortocoron He rmann juana bypass juana bypass graft graft 10/24/2018 Bradley Drew [facility] Fluid Fluid Problem 2018-09-17 Memor ia overload, overload, 12:21:37 l unspecifie unspecifie He rmann d d 09/17/2018 [facility] Erythemato Erythemat Problem 2018-09-17 Memoria us ous 12:21:37 l condition, condition, He rmann unspecifie unspecifie d d 09/17/2018 [facility] Allergy Allergy Problem 2018-09-17 Me moria status to status to 12:21:37 l penicillin penicillin He rmann 09/17/2018 [facility] Other long Other Problem 2018-09-17 M emoria term intermediate 12:21:37 l (current) (current) Herm ladi drug drug therapy therapy 09/17/2018 [facility] Family Family Problem 2018-09-17 Kuldeep teto history of history of 12:21:37 l ischemic ischemic Arsenio freedman heart heart disease disease and other and other diseases diseases of the of the director payer director payer y system y system 09/17/2018 [facility] Shortness Shortness Problem 2018-09-18 Memoria of breath of breath 14:04:56 l 09/18/[address] [facility] Unspecifie Unspecifi Problem 2018-09-18 Memoria d severe ed severe 14:04:56 l protein-ca protein-ca He rmladi fely geiger malnutriti malnutriti on on 09/18/[address] [facility] Atelectasi Atelectas Problem 2018-09-18 Memoria s is 14:04:56 l 09/18/[address] [facility] Osteomyeli Osteomyel Problem 2018-09-18 Memoria tis, itis, 14:04:56 l unspecifie unspecifie He rmann d d 09/18/[address] [facility] Cellulitis Celluliti Problem 2018-09-18 Memoria of chest s of chest 14:04:56 l wall wall [place] 09/18/[address] [facility] Acute on Acute on Problem 2018-09-18 Memoria chronic chronic 14:04:56 l combined combined Arsenio n systolic systolic (congestiv (congestiv e) and e) and diastolic diastolic (congestiv (congestiv e) heart e) heart failure failure 09/18/[address] [facility] Frequency Frequency Problem 2018-09-18 Memoria of of 14:04:56 l micturitio micturitio He rmann n n 09/18/[address] [facility] 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-18 Memoria rotic erotic 14:04:56 l heart heart [place] disease of disease of [place] coronary coronary artery artery without without angina angina pectoris pectoris 09/18/2018 Bradley Oliveros [facility] Localized Localized Problem 2018-09-18 Memoria edema edema 14:04:56 l 09/18/[address] [facility] Hyperlipid Hyperlipi Problem 2018-09-18 Memoria emia, demia, 14:04:56 l unspecifie unspecifie He rmann d d 09/18/[address] [facility] Ischemic Ischemic Problem 2018-09-18 Memoria cardiomyop cardiomyop 14:04:56 l athy athy [place] 09/18/[address] [facility] Personal Personal Problem 2018-09-18 Memoria history of history of 14:04:56 l nicotine nicotine Arsenio n dependence dependence 09/18/2018 Bradley Oliveros [facility] Radiograph Radiograp Problem 2018-09-18 Memoria ic dye hic dye 14:04:56 l allergy allergy [place] status status 09/18/2018 Bradley Oliveros [facility] Body mass Body mass Problem 2018-09-18 Memoria index index 14:04:56 l (BMI) (BMI) [place] 27.0-27.9, 27.0-27.9, adult adult 09/18/[address] [facility] Acute Acute Problem 2018-09-10 Memor ia posthemorr posthemorr 14:31:25 l pranay pires [place] anemia anemia 09/10/[address] [facility] Essential Problem 2018-09-10 Me moria (primary) Essential 14:31:25 l hypertensi (primary) Her fernandes on hypertensi on 09/10/[address] [facility] Major Major Problem 2018-09-10 Memor ia depressive depressive 14:31:25 l disorder, disorder, Herm ladi single single episode, episode, unspecifie unspecifie d d 09/10/[address] [facility] Anxiety Anxiety Problem 2018-09-10 Me moria disorder, disorder, 14:31:25 l unspecifie unspecifie He rmann d d 09/10/[address] [facility] Insomnia, Insomnia, Problem 2018-09-10 Memoria unspecifie unspecifie 14:31:25 l d d [place] 09/10/[address] [facility] Constipati Constipat Problem 2018-09-10 Memoria on, ion, 14:31:25 l unspecifie unspecifie He rmann d d 09/10/[address] [facility] Coronary Coronary Problem Active 2018-10-24 Memoria arterioscl arterioscl 11:25:49 l erosis erosis [place] (disorder) (disorder) Active Problem 10/24/2018 [facility], [facility] ILLNESS, ILLNESS, Diagnosis Active 2018-05-19 Memoria UNSPECIFIE UNSPECIFIE 06:57:00 l D D Active Seymour [facility] POSTPROC POSTPROC Diagnosis Active 2018-06-03 Memoria SEROMA OF SEROMA OF 15:02:00 l SKIN, SKIN, [place] SUBCU SUBCU FOLLOWING FOLLOWING Active [facility] ACUTE ACUTE Diagnosis Active 2018-08-17 Mem oria CHOLECYSTI CHOLECYSTI 09:57:00 l TIS TIS [place] Active [facility] HEART HEART Diagnosis Active 2018-03-07 Mem oria FAILURE, FAILURE, 22:14:00 l UNSPECIFIE UNSPECIFIE He rmann D D Active [facility] History of Past Illness Condition Condition Condition Status Onset Resolution Last Treating Co mments Source Name Details Category Date Date Treatment Clinician Date Other Other Problem 2018-2018-10-24 2018-10-24 M emoria acute acute 2-06 11:25:49 11:25:49 l osteomyeli osteomyeli 06:03: He antonio tis, other tis, other 01 site site 04/10/2018 10/24/2018 ZAHRA [facility] Hypertensi Hypertens Problem 2018-0 2018-09-18 2018-09-18 Memoria ve heart shelia heart 06-26 14:04:56 14:04:56 l disease disease 05:04: [place] with heart with heart 24 failure failure 06/26/2018 09/18/[address] [facility] Allergies, Adverse Reactions, Alerts Allergy Allergy Status Severity Reaction(s) Onset Inactive Treating Comm ents Source Name Type Date Date Clinician Penicill DA Active [facility] ins 06-24 Clear 00:00: [place] 00 [facility] iodine DA Active [facility] 06-24 Clear 00:00: [place] 00 [facility] Iodine Propensi Active Itching Kaela ty to 3 Seybold adverse 00:00: reaction 00 s Penicill Propensi Active anaphylax Abilio sey ins ty to 05-03 is [place] adverse 00:00: reaction 00 s IODINE Drug Active Hives 2017-03 Univers AND Class 1-09 ity of IODIDE 00:00: [place] CONTAINI 00 Medical NG Branch PRODUCTS Iodine Propensi Active Hives 2017-03 Hives and Unive rs And ty to 1-09 whole ity of Iodide adverse 00:00: body [...] p> [place] NKFA NKFA Active Memoria l [place] Family History Family Member Diagnosis Comments Start Date Stop Date Source Natural father Stroke [facility] Natural father Diabetes [facility] Natural father Hypertension [facility] Natural mother Diabetes [facility] Natural mother Hypertension [facility] Social History Social Habit Start Date Stop Date Quantity Comments Source History SDOH Kaela tavera Alcohol Frequency History SDOH Kaela taevra Alcohol Std Drinks History SDOH Kaela Avila ld Alcohol Binge History of tobacco Cigarette Smoker [facility] Exposure to Not sure University of SARS-CoV-2 (event) [facility] [place] Tobacco use and 2021-05-03 2021-05-03 Smokeless Kaela Martin ybold exposure 00:00:00 00:00:00 tobacco non-user Alcohol Comment 2021-05-03 2021-05-03 rarely Kaela ybjessica 00:00:00 00:00:00 Education 2021-05-03 2021-05-03 15 Kaela Johnson 00:00:00 00:00:00 Cigarette 2021-05-03 2021-05-03 Kaela Johnson pack-years 00:00:00 00:00:00 Social History 2018-08-16 2018-08-[address] [facility] Cintia mike 07:52:22 07:52:22 Alcohol intake 2015-08-28 2015-08-28 Current [facility] 00:00:00 00:00:00 non-drinker of Medical Ce nter alcohol (finding) Cigarettes smoked 2015-08-27 2015-08-27 [facility] current (pack per 00:00:00 00:00:00 [facility] ) - Reported Sex Ass[birth year] At [birth year] [facility] 00:00:00 00:00:00 [facility] Smoking Status Start Date Stop Date Source Ex-smoker 2021-05-03 00:00:00 2021-05-03 00:00:00 Kaela echols Smokes tobacco daily 2015-08-27 00:00:00 [facility] Medications Ordered Filled Start Stop Current Ordering Indication Dosage Frequency Signature Comments Components Source Medication Medication Date Date Medication? Clinician (SIG) Name Name Lisinopril 2021- No 10mg Take 10 mg Kaela 10 MG oral 3-30 03-30 by mouth Seyb old Tablet 10:39: 00:00 daily 21 :00 Tramadol 2021-0 Yes [id number] 50mg QD Take 1 Ke lsey HCl 50 MG 3-30 tablet (50 Seyb old oral Tablet 00:00: mg total) 00 by mouth daily as needed for pain Lisinopril 2021-0 Yes 10mg Take 10 mg K elsey 10 MG oral 3-01 by mouth Seybo ld Tablet 14:00: daily 07 Escitalopra 0 Yes [id number] 10mg Take 1 Kaela m Oxalate 3-01 tablet (10 Seyb old (Lexapro) 00:00: mg total) 10 MG oral 00 by mouth Tablet daily Aspirin 81 0 Yes [id number] 81mg Take 1 Kaela MG oral 3-01 tablet (81 Seybol d Chewable 00:00: mg total) Tablet 00 by mouth daily Tramadol 2021-0 Yes [id number] 50mg Q24H Take 1 Ke lsey HCl 50 MG 3-01 tablet (50 Seyb old oral Tablet 00:00: mg total) 00 by mouth daily as needed for pain Escitalopra Yes [id number] 10mg Take 1 Kaela m Oxalate 3-01 tablet (10 Seyb old (Lexapro) 00:00: mg total) 10 MG oral 00 by mouth Tablet daily Aspirin 81 0 Yes [id number] 81mg Take 1 Kaela MG oral 3-01 tablet (81 Seybol d Chewable 00:00: mg total) Tablet 00 by mouth daily Tramadol 2021- No [id number] 50mg QD Take 1 K elsey HCl 50 MG 3-01 03-30 tablet (50 Sey bold oral Tablet 00:00: 00:00 mg total) 00 :00 by mouth daily as needed for pain lisinopriL 2019-03 Yes 10mg Take 10 mg U nivers 10 mg 1-09 by mouth ity of tablet 19:16: daily. [address] lisinopriL 2019-03 Yes 10mg Take 10 mg U nivers 10 mg 1-09 by mouth ity of tablet 19:16: daily. [address] lisinopriL 2019-03 Yes 10mg Take 10 mg U nivers 10 mg 1-09 by mouth ity of tablet 19:16: daily. [place] [address] Medical Branch lisinopriL 2019- Yes 10mg Take 10 mg U nivers 10 mg 1-09 by mouth ity of tablet 19:16: daily. [place] [address] Medical Branch lisinopriL 2019- Yes 10mg Take 10 mg U nivers 10 mg 1-09 by mouth ity of tablet 19:16: daily. [place] [address] Medical Branch lisinopriL 2019- Yes 10mg Take 10 mg U nivers 10 mg 1-09 by mouth ity of tablet 13:16: daily. [place] [address] Medical Branch atorvastati 2019-03 Yes [id number] 40mg Take 1 Univers n 40 mg 1-09 tablet by ity of tablet 00:00: mouth [place] 00 daily. Medical Branch aspirin 81 2019-03 Yes [id number] 81mg Take 1 Univers mg EC 1-09 tablet by ity of tablet 00:00: mouth [place] 00 daily. Medical Branch atorvastati 2019-03 Yes [id number] 40mg Take 1 Univers n 40 mg 1-09 tablet by ity of tablet 00:00: mouth [place] 00 daily. Medical Branch aspirin 81 2019-03 Yes [id number] 81mg Take 1 Univers mg EC 1-09 tablet by ity of tablet 00:00: mouth [place] 00 daily. Medical Branch atorvastati 2019-03 Yes [id number] 40mg Take 1 Univers n 40 mg 1-09 tablet by ity of tablet 00:00: mouth [place] 00 daily. Medical Branch aspirin 81 2019-03 Yes [id number] 81mg Take 1 Univers mg EC 1-09 tablet by ity of tablet 00:00: mouth [place] 00 daily. Medical Branch atorvastati 2019-03 Yes [id number] 40mg Take 1 Univers n 40 mg 1-09 tablet by ity of tablet 00:00: mouth [place] 00 daily. Medical Branch aspirin 81 2019-03 Yes [id number] 81mg Take 1 Univers mg EC 1-09 tablet by ity of tablet 00:00: mouth [place] 00 daily. Medical Branch atorvastati 2019-03 Yes [id number] 40mg Take 1 Univers n 40 mg 1-09 tablet by ity of tablet 00:00: mouth [place] 00 daily. Medical Branch aspirin 81 2019-03 Yes [id number] 81mg Take 1 Univers mg EC 1-09 tablet by ity of tablet 00:00: mouth [place] 00 daily. Medical Branch atorvastati 2020-1 Yes [id number] 40mg Take 1 Univers n 40 mg 1-09 tablet by ity of tablet 00:00: mouth [place] 00 daily. Medical Branch aspirin 81 2020-1 Yes [id number] 81mg Take 1 Univers mg EC 1-09 tablet by ity of tablet 00:00: mouth [place] 00 daily. Medical Branch metoprolol 2020-0 Yes [id number] 25mg Take 1 U nivers succinate 9-10 tablet by ity o f XL 25 mg 24 00:00: mouth [place] hr tablet 00 daily. Medical Branch traZODone 2020-0 Yes [id number] 50mg Take 1 Un jody 50 mg 9-10 tablet by ity of tablet 00:00: mouth at [place] 00 bedtime. Medical Branch cyclobenzap 2019-0 Yes [id number] 10mg Take 1 Univers rine 10 mg 9-10 tablet by ity of tablet 00:00: mouth 3 (three) Medical times Branch daily as needed for Muscle Spasms. naproxen 2020-0 Yes [id number] 500mg Take 1 U nivers 500 mg 9-10 tablet by ity of tablet 00:00: mouth 2 (two) Medical times Branch daily with meals. buPROPion 2020-0 Yes [id number] 150mg Take 1 U nivers SR 9-10 tablet by ity of (WELLBUTRIN 00:00: mouth 2 Oni as SR) 150 mg 00 (two) Medical SR tablet times Branch daily. metoprolol 2020-0 Yes [id number] 25mg Take 1 U nivers succinate 9-10 tablet by ity o f XL 25 mg 24 00:00: mouth [place] hr tablet 00 daily. Medical Branch traZODone 2020-0 Yes [id number] 50mg Take 1 Un jody 50 mg 9-10 tablet by ity of tablet 00:00: mouth at [place] 00 bedtime. Medical Branch cyclobenzap 2020-0 Yes [id number] 10mg Take 1 Univers rine 10 mg 9-10 tablet by ity of tablet 00:00: mouth 3 00 (three) Medical times Branch daily as needed for Muscle Spasms. naproxen 2020-0 Yes [id number] 500mg Take 1 U nivers 500 mg 9-10 tablet by ity of tablet 00:00: mouth 2 00 (two) Medical times Branch daily with meals. buPROPion 2020-0 Yes [id number] 150mg Take 1 U nivers SR 9-10 tablet by ity of (WELLBUTRIN 00:00: mouth 2 Oni as SR) 150 mg 00 (two) Medical SR tablet times Branch daily. metoprolol 2020-0 Yes [id number] 25mg Take 1 U nivers succinate 9-10 tablet by ity o f XL 25 mg 24 00:00: mouth [place] hr tablet 00 daily. Medical Branch traZODone 2020-0 Yes [id number] 50mg Take 1 Un jody 50 mg 9-10 tablet by ity of tablet 00:00: mouth at [place] 00 bedtime. Medical Branch cyclobenzap 2020-0 Yes [id number] 10mg Take 1 Univers rine 10 mg 9-10 tablet by ity of tablet 00:00: mouth 3 [place] 00 (three) Medical times Branch daily as needed for Muscle Spasms. naproxen 2020-0 Yes [id number] 500mg Take 1 U nivers 500 mg 9-10 tablet by ity of tablet 00:00: mouth 2 [place] 00 (two) Medical times Branch daily with meals. buPROPion 2020-0 Yes [id number] 150mg Take 1 U nivers SR 9-10 tablet by ity of (WELLBUTRIN 00:00: mouth 2 Oni as SR) 150 mg 00 (two) Medical SR tablet times Branch daily. traZODone 2020-0 Yes [id number] 50mg Take 1 Un jody 50 mg 9-10 tablet by ity of tablet 00:00: mouth at [place] 00 bedtime. Medical Branch cyclobenzap 2020-0 Yes [id number] 10mg Take 1 [facility] rine 10 mg 9-10 tablet by ity of tablet 00:00: mouth 3 [place] (three) Medical times Branch daily as needed for Muscle Spasms. traZODone 2020-0 Yes [id number] 50mg Take 1 [facility] 50 mg 9-10 tablet by ity of tablet 00:00: mouth at [place] 00 bedtime. Medical Branch cyclobenzap 2020-0 Yes [id number] 10mg Take 1 [facility] rine 10 mg 9-10 tablet by ity of tablet 00:00: mouth 3 [place] 00 (three) Medical times Branch daily as needed for Muscle Spasms. traZODone 2020-0 Yes [id number] 50mg Take 1 [facility] [place] 50 mg 9-10 tablet by ity of tablet 00:00: mouth at [place] [address] bedtime. Medical Branch cyclobenzap 2020-0 Yes [id number] 10mg Take 1 [facility] rine 10 mg 9-10 tablet by ity of tablet 00:00: mouth 3 [place] (three) Medical times [place] daily as needed for Muscle Spasms. traZODone 2020-0 Yes [id number] 50mg Take 1 Un j[facility] 50 mg 9-10 tablet by ity of tablet 00:00: mouth at [place] 00 bedtime. Medical Branch cyclobenzap 2020-0 Yes [id number] 10mg Take 1 [facility] rine 10 mg 9-10 tablet by ity of tablet 00:00: mouth 3 [place] (three) Medical times [place] daily as needed for Muscle Spasms. traZODone 2020-0 Yes [id number] 50mg Take 1 [facility] [place] 50 mg 9-10 tablet by ity of tablet 00:00: mouth at [place] [address] bedtime. Medical Branch cyclobenzap 2020-0 Yes [id number] 10mg Take 1 [facility] rine 10 mg 9-10 tablet by ity of tablet 00:00: mouth 3 [place] (three) Medical times [place] daily as needed for Muscle Spasms. traZODone 2020-0 Yes [id number] 50mg Take 1 [facility] [place] 50 mg 9-10 tablet by ity of tablet 00:00: mouth at [place] [address] bedtime. Medical Branch cyclobenzap 2020-0 Yes [id number] 10mg Take 1 [facility] rine 10 mg 9-10 tablet by ity of tablet 00:00: mouth 3 [place] (three) Medical times [place] daily as needed for Muscle Spasms. metoprolol 2020-0 Yes [id number] 25mg Take 1 [facility] nivers succinate 9-10 tablet by ity o f XL 25 mg 24 00:00: mouth [place] hr tablet 00 daily. Medical Branch traZODone 2020-0 Yes [id number] 50mg Take 1 [facility] j[facility] 50 mg 9-10 tablet by ity of tablet 00:00: mouth at [place] [address] bedtime. Medical [facility] cyclobenzap 2020-0 Yes [id number] 10mg Take 1 [facility] rine 10 mg 9-10 tablet by ity of tablet 00:00: mouth 3 [place] 00 (three) Medical times Branch daily as needed for Muscle Spasms. naproxen 2020-0 Yes [id number] 500mg Take 1 [facility] nivers 500 mg 9-10 tablet by ity of tablet 00:00: mouth 2 [place] 00 (two) Medical times Branch daily with meals. buPROPion 2020-0 Yes [id number] 150mg Take 1 U nivers SR 9-10 tablet by ity of (WELLBUTRIN 00:00: mouth 2 [place] SR) 150 mg 00 (two) Medical SR tablet times Branch daily. metoprolol 2019-0 Yes [id number] 25mg Take 1 [facility] nivers succinate 9-10 tablet by ity o f XL 25 mg 24 00:00: mouth [place] hr tablet 00 daily. Medical Branch traZODone 2019-0 Yes [id number] 50mg Take 1 [facility] 50 mg 9-10 tablet by ity of tablet 00:00: mouth at [place] 00 bedtime. Medical [facility] cyclobenzap 2019-0 Yes [id number] 10mg Take 1 [facility] rine 10 mg 9-10 tablet by ity of tablet 00:00: mouth 3 [place] 00 (three) Medical times Branch daily as needed for Muscle Spasms. naproxen 2019-0 Yes [id number] 500mg Take 1 [facility] nivers 500 mg 9-10 tablet by ity of tablet 00:00: mouth 2 [place] 00 (two) Medical times Branch daily with meals. buPROPion 2019-0 Yes [id number] 150mg Take 1 [facility] nivers SR 9-10 tablet by ity of (WELLBUTRIN 00:00: mouth 2 [place] SR) 150 mg 00 (two) Medical SR tablet times Branch daily. metoprolol 2020- No [id number] 25mg Take 1 [facility] succinate 9-10 11-09 tablet by ity of XL 25 mg 24 00:00: 00:00 mouth [place] hr tablet 00 :00 daily. [facility] naproxen 0 2020- No [id number] 500mg Take 1 [facility] 500 mg 9-10 11-09 tablet by ity of tablet 00:00: 00:00 mouth 2 [place] 00 :00 (two) Medical times Branch daily with meals. buPROPion 2019-0 2020- No [id number] 150mg Take 1 [facility] SR 9-10 11-09 tablet by ity of (WELLBUTRIN 00:00: 00:00 mouth 2 [place] SR) 150 mg 00 :00 (two) Medical SR tablet times Branch daily. metoprolol 2020- No [id number] 25mg Take 1 [facility] succinate 9-10 11-09 tablet by ity of XL 25 mg 24 00:00: 00:00 mouth [place] hr tablet 00 :00 daily. [facility] naproxen 2019- No [id number] 500mg Take 1 [facility] 500 mg 9-10 11-09 tablet by ity of tablet 00:00: 00:00 mouth 2 [place] 00 :00 (two) Medical times Branch daily with meals. buPROPion 2019- No [id number] 150mg Take 1 [facility] SR 9-10 11-09 tablet by ity of (WELLBUTRIN 00:00: 00:00 mouth 2 [place] SR) 150 mg 00 :00 (two) Medical SR tablet times Branch daily. metoprolol 2020- No [id number] 25mg Take 1 [facility] succinate 9-10 11- tablet by ity of XL 25 mg 24 00:00: 00:00 mouth [place] hr tablet 00 :00 daily. [facility] naproxen 2019- No [id number] 500mg Take 1 [facility] 500 mg 9-10 - tablet by ity of tablet 00:00: 00:00 mouth 2 [place] 00 :00 (two) Medical times Branch daily with meals. buPROPion 2019- No [id number] 150mg Take 1 [facility] SR 9-10 11-09 tablet by ity of (WELLBUTRIN 00:00: 00:00 mouth 2 [place] SR) 150 mg 00 :00 (two) Medical SR tablet times Branch daily. TRAZODONE 2018-03 Yes [id number] TAKE THREE [facility] 50 mg 1-18 TABLETS BY ity of tablet 00:00: MOUTH AT [address] Branch TRAZODONE 2018-03 Yes [id number] TAKE THREE [facility] 50 mg 1-18 TABLETS BY ity of tablet 00:00: [facility] AT [place] [facility] 2018-03 2020- No [id number] TAKE THREE [facility] 50 mg 1-18 09-10 TABLETS BY ity of tablet 00:00: 00:00 MOUTH AT [place] 00 :[facility] TRAZ[facility]ONE 2018-03 2020- No [id number] TAKE THREE [facility] 50 mg 1-18 09-10 TABLETS BY ity of tablet 00:00: 00:00 MOUTH AT [place] 00 :[facility] metoprolol Yes 25mg Take 1 [...] No 25mg Take 1 [facility] ers succinate 7- 09-10 tablet by ity of XL 25 mg 24 00:00: 00:00 mouth [place] hr tablet 00 :00 daily. [facility] metoprolol 2020- No 25mg Take 1 [facility] ers succinate 7- 09-10 tablet by ity of XL 25 mg 24 00:00: 00:00 mouth [place] hr tablet 00 :00 daily. [facility] Docusate No Notes: [facility] 6-14 (Same as: l 14:00: Colace) [place] (Do Not Crush) Docusate No Notes: [facility] 6-14 (Same as: l 14:00: Colace) [place] (Do Not Crush) Docusate No Notes: [facility] 6-14 (Same as: l 14:00: Colace) [place] (Do Not Crush) gabapentin No Notes: Memor ia 300 MG Oral 6-14 (Same as: l Capsule 13:00: Neurontin) [facility] lad[place] gabapentin No Notes: Memor ia 300 MG Oral 6-14 (Same as: l Capsule 13:00: Neurontin) [facility] gabapentin No Notes: Memor ia 300 MG Oral 6-14 (Same as: l Capsule 13:00: Neurontin) [facility] Tylenol No Notes: Max Kuldeep teto 6-14 acetaminop l 11:00: hen 4000 [place] 00 mg/day (4 gm/day). (Same as: Tylenol Extra Strength) Tylenol No Notes: Max Kuldeep teto 6-14 acetaminop l 11:00: hen 4000 [place] 00 mg/day (4 gm/day). (Same as: Tylenol Extra Strength) Tylenol No Notes: Max Kuldeep teto 6-14 acetaminop l 11:00: hen 4000 [place] 00 mg/day (4 gm/day). (Same as: Tylenol Extra Strength) Lovenox No Notes: [facility] 6-14 (Same as: l 09:00: Lovenox) Lovenox No Notes: [facility] 6-14 (Same as: l 09:00: Lovenox) Lovenox No Notes: [facility] 6-14 (Same as: l 09:00: Lovenox) Isolyte S No Notes: Memori a PH 7.4 6-14 (Same as: l 1,000 mL 08:15: Isolyte S [facility] lad[place] 00 PH 7.4) Isolyte S No Notes: Memori a PH 7.4 6-14 (Same as: l 1,000 mL 08:15: Isolyte S [facility] lad[place] 00 PH 7.4) Isolyte S No Notes: Memori a PH 7.4 6-14 (Same as: l 1,000 mL 08:15: Isolyte S Herm lad[facility] 00 PH 7.4) tramadol No Notes: Not Mem oria hydrochlori -14 to exceed l de 50 MG 08:14: 400mg/day. [place] Oral Tablet 00 (Same As: Ultram) tramadol No Notes: Not Mem oria hydrochlori 6-14 to exceed l de 50 MG 08:14: 400mg/day. [place] Oral Tablet 00 (Same As: Ultram) tramadol No Notes: Not Mem oria hydrochlori 6-14 to exceed l de 50 MG 08:14: 400mg/day. [place] Oral Tablet 00 (Same As: Ultram) Ondansetron No Notes: Kuldeep teto -14 (Same as: l 08:13: Zofran) MEDICATION WASTE Product Size: 4 mg Product Wasted: _0__ mg Glucagon No 1 mg, [facility]oria 08-16 Route: IM, l 08:13: Drug form: PDR/INJ, PRN, Dosing Weight 81.818, kg, PRN Blood Glucose Results, Start date: 08/16/18 3:13:00 CDT, 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, Stop date: 09/15/18 3:12:00 CDT Dextrose 2019-0 No 12.5 gm, Memor ia 50% Syringe 6-14 25 mL, l 08:13: Route: [place] 00 IVP, Drug Form: INJ, Dosing Weight 81.818, kg, PRN, PRN Blood Glucose Results, Start date: 08/16/18 3:13:00 CDT, 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, Stop date: 09/15/18 3:12:00 CDT Ondansetron 2019-0 No Notes: Kuldeep teto 6-14 (Same as: l 08:13: Janes) [place] 00 MEDICATION WASTE Product Size: 4 mg Product Wasted: _0__ mg Glucagon 2019-0 No 1 mg, Memoria 6-14 Route: IM, l 08:13: Drug form: [place] 00 PDR/INJ, PRN, Dosing Weight 81.818, kg, PRN Blood Glucose Results, Start date: 08/16/18 3:13:00 CDT, 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, Stop date: 09/15/18 3:12:00 CDT Dextrose 2019-0 No 12.5 gm, Memor ia 50% Syringe 6-14 25 mL, l 08:13: Route: [place] 00 IVP, Drug Form: INJ, Dosing Weight 81.818, kg, PRN, PRN Blood Glucose Results, Start date: 08/16/18 3:13:00 CDT, 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, Stop date: 09/15/18 3:12:00 CDT Ondansetron 2019-0 No Notes: Kuldeep teto 6-14 (Same as: l 08:13: Janes) [place] 00 MEDICATION WASTE Product Size: 4 mg Product Wasted: _0__ mg Glucagon 2019-0 No 1 mg, Memoria 6-14 Route: IM, l 08:13: Drug form: [place] 00 PDR/INJ, PRN, Dosing Weight 81.818, kg, PRN Blood Glucose Results, Start date: 08/16/18 3:13:00 CDT, 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, Stop date: 09/15/18 3:12:00 CDT Dextrose 2019-0 No 12.5 gm, Memor ia 50% Syringe 6-14 25 mL, l 08:13: Route: [place] 00 IVP, Drug Form: INJ, Dosing Weight 81.818, kg, PRN, PRN Blood Glucose Results, Start date: 08/16/18 3:13:00 CDT, 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, Stop date: 09/15/18 3:12:00 CDT Zofran 2019-0 No 4 mg, [facility] 6-14 Route: l 07:11: IVP, Drug [place] 00 form: INJ, ONCE, Dosing Weight 81.818, kg, Priority: STAT, Start date: 08/16/18 2:11:00 CDT, Stop date: 08/16/18 2:11:00 CDT Morphine 2019-0 No 4 mg, [facility] 6-14 Route: l 07:11: IVP, ONCE, [place] 00 Dosing Weight 81.818, kg, Priority: STAT, Start date: 08/16/18 2:11:00 CDT, Stop date: 08/16/18 2:11:00 CDT Zofran 2019-0 No 4 mg, [facility] 6-14 Route: l 07:11: IVP, Drug [place] 00 form: INJ, ONCE, Dosing Weight 81.818, kg, Priority: STAT, Start date: 08/16/18 2:11:00 CDT, Stop date: 08/16/18 2:11:00 CDT Morphine 2019-0 No 4 mg, [facility] 6-14 Route: l 07:11: IVP, ONCE, [place] 00 Dosing Weight 81.818, kg, Priority: STAT, Start date: 08/16/18 2:11:00 CDT, Stop date: 08/16/18 2:11:00 CDT Zofran 2019-0 No 4 mg, [facility] 6-14 Route: l 07:11: IVP, Drug [place] 00 form: INJ, ONCE, Dosing Weight 81.818, kg, Priority: STAT, Start date: 08/16/18 2:11:00 CDT, Stop date: 08/16/18 2:11:00 CDT Morphine 2019-0 No 4 mg, [facility] 6-14 Route: l 07:11: IVP, ONCE, [place] 00 Dosing Weight 81.818, kg, Priority: STAT, Start date: 08/16/18 2:11:00 CDT, Stop date: 08/16/18 2:11:00 CDT Doxycycline Yes Notes: Kuldeep teto 4-19 (Same as: l 18:35: Vibramycin [place] ) Doxycycline Yes Notes: Kuldeep teto 4-19 (Same as: l 18:35: Vibramycin [place] ) Doxycycline Yes Notes: Kuldeep teto 4-19 (Same as: l 18:35: Vibramycin [place] ) Trazodone No Notes: Memori a Hydrochlori 4-02 (Same As: l de 50 MG 02:00: Desyrel) [place] nn Oral Tablet atorvastati No Notes: Kuldeep etto n 4-02 (Same as: l 02:00: Lipitor) [place] Trazodone No Notes: Memori a Hydrochlori 4-02 (Same As: l de 50 MG 02:00: Desyrel) [place] nn Oral Tablet atorvastati No Notes: Kuldepe teto n 4-02 (Same as: l 02:00: Lipitor) [place] Trazodone No Notes: Memori a Hydrochlori 4-02 (Same As: l de 50 MG 02:00: Desyrel) [place] nn Oral Tablet 00 atorvastati No Notes: Kuldeep teto n 4-02 (Same as: l 02:00: Lipitor) [place] doxycycline Yes 100 mg = 1 [facility] hyclate 100 4-01 tab, PO, l MG Oral 20:58: Q12H, X 14 [facility] lad[facility] Tablet 00 day, # 28 tab, 0 Refill(s), Pharmacy: [place] [id number] doxycycline Yes 100 mg = 1 [facility] hyclate 100 4-01 tab, PO, l MG Oral 20:58: Q12H, X 14 [facility] lad[place] Tablet 00 day, # 28 tab, 0 Refill(s), Pharmacy: [place] [id number] doxycycline Yes 100 mg = 1 [facility] hyclate 100 4-01 tab, PO, l MG Oral 20:58: Q12H, X 14 [facility] lad[place] Tablet 00 day, # 28 tab, 0 Refill(s), Pharmacy: [place] [id number] meropenem No Notes: Memori a 06-03 Same as l 18:00: Merrem [place] 00 MEDICATION WASTE Product Size: 500 mg Product Wasted: ___ mg meropenem No Notes: Memori a 06-03 Same as l 18:00: Merrem [place] 00 MEDICATION WASTE Product Size: 500 mg Product Wasted: ___ mg meropenem No Notes: Memori a 06-03 Same as l 18:00: Merrem [place] MEDICATION WASTE Product Size: 500 mg Product [...] As: Ultram) Doxycycline No Notes: Kuldeep teto - (Same as: l 15:10: Vibramycin [place] 00 ) Doxycycline No Notes: Kuldeep teto 06-03 (Same as: l 15:10: Vibramycin [place] 00 ) Doxycycline No Notes: Kuldeep teto 06-03 (Same as: l 15:10: Vibramycin [place] 00 ) duloxetine No Notes: Memor ia - (Same as: l 14:00: Cymbalta) [place] 00 (Do Not Crush) Docusate No Notes: [facility] Sodium 100 - (Same as: l MG Oral 14:00: Colace) [place] Capsule 00 (Do Not [Colace] Crush) clopidogrel No Notes: Kuldeep teto - (Same As: l 14:00: Plavix) [place] 00 heparin No Notes: [facility]oria 4- porcine l 14:00: heparin [place] 00 Buspirone No Notes: Memori a 06-03 (Same As: l 14:00: BuSpar) [place] 00 tramadol 2018- No Notes: Not Mem oria hydrochlori 4- to exceed l de 50 MG 14:00: 400mg/day. [place] Oral Tablet 00 (Same As: Ultram) Aspirin 81 No Notes: Do Me moria MG Enteric 4- not crush l Coated 14:00: or chew. [place] Tablet 00 (Same As: Ecotrin) Midodrine No Notes: Memori a 4- (Same l 14:00: as:Proamat [place] 00 ine) metoprolol No Notes: Memor ia extended 4- (Same as: l release 14:00: Toprol XL) [place] lad[place] Do Not Crush Lisinopril No Notes: Memor ia 4- (Same as: l 14:00: Prinivil, [place] 00 Zestril) duloxetine No Notes: Memor ia 4- (Same as: l 14:00: Cymbalta) [place] 00 (Do Not Crush) Docusate No Notes: [facility] Sodium 100 4- (Same as: l MG Oral 14:00: Colace) [place] Capsule 00 (Do Not [Colace] Crush) clopidogrel No Notes: Kuldeep teto 4- (Same As: l 14:00: Plavix) [place] 00 heparin No Notes: [facility] 4- porcine l 14:00: heparin [place] 00 Buspirone No Notes: Memori a 4- (Same As: l 14:00: BuSpar) [place] 00 tramadol No Notes: Not Mem oria hydrochlori 4- to exceed l de 50 MG 14:00: 400mg/day. [place] Oral Tablet 00 (Same As: Ultram) Aspirin 81 No Notes: Do Me moria MG Enteric 4- not crush l Coated 14:00: or chew. [place] Tablet 00 (Same As: Ecotrin) Midodrine No Notes: Memori a 4-01 (Same l 14:00: as:Proamat [place] 00 ine) metoprolol No Notes: Memor ia extended 4- (Same as: l release 14:00: Toprol XL) [place] 00 Do Not Crush Lisinopril No Notes: Memor ia 4- (Same as: l 14:00: Prinivil, [place] 00 Zestril) tramadol No Notes: Not Mem oria hydrochlori - to exceed l de 50 MG 14:00: 400mg/day. [place] Oral Tablet 00 (Same As: Ultram) Aspirin 81 No Notes: Do Me moria MG Enteric - not crush l Coated 14:00: or chew. [place] Tablet 00 (Same As: Ecotrin) Midodrine No Notes: Memori a 4- (Same l 14:00: as:Proamat [place] 00 ine) metoprolol No Notes: Memor ia extended - (Same as: l release 14:00: Toprol XL) [place] 00 Do Not Crush Lisinopril No Notes: Memor ia 4- (Same as: l 14:00: Prinivil, [place] 00 Zestril) duloxetine No Notes: Memor ia 4- (Same as: l 14:00: Cymbalta) [place] 00 (Do Not Crush) Docusate No Notes: [facility] Sodium 100 - (Same as: l MG Oral 14:00: Colace) [place] Capsule 00 (Do Not [Colace] Crush) clopidogrel No Notes: Kuldeep teto 4- (Same As: l 14:00: Plavix) [place] 00 heparin No Notes: [facility] 4-01 porcine l 14:00: heparin [place] 00 Buspirone No Notes: Memori a 4-01 (Same As: l 14:00: BuSpar) [place] 00 tramadol No Notes: Not Mem oria hydrochlori 4- to exceed l de 50 MG 04:45: 400mg/day. [place] Oral Tablet 00 (Same As: Ultram) tramadol No Notes: Not Mem oria hydrochlori 4- to exceed l de 50 MG 04:45: 400mg/day. [place] Oral Tablet 00 (Same As: Ultram) tramadol No Notes: Not Mem oria hydrochlori 06-03 to exceed l de 50 MG 04:45: 400mg/day. [place] Oral Tablet 00 (Same As: Ultram) Hydralazine No Notes: Kuldeep teto - (Same as: l 02:32: Apresoline [place] 00 ) Push over 5 minutes Hydralazine No Notes: Kuldeep teto 4- (Same as: l 02:32: Apresoline [place] 00 ) Push over 5 minutes Hydralazine No Notes: Kuldeep teto 4- (Same as: l 02:32: Apresoline [place] 00 ) Push over 5 minutes Trazodone No Notes: Memori a 06-03 (Same As: l 02:19: Desyrel) [place] Trazodone No Notes: Memori a 06-03 (Same As: l 02:19: Desyrel) [place] Trazodone No Notes: Memori a 06-03 (Same As: l 02:19: Desyrel) [place] Vancomycin No 2000 mg: Me moria 4- infuse l 00:00: over 2.5 [place] 00 hours For adult patients only: Round to nearest 250 mg per Medical Staff approval MEDICATION WASTE Product Size: 1000 mg Product Wasted: ___ mg cefepime No Notes: [facility] 06-03 (Same As: l 00:00: Maxipime) [place] 00 MEDICATION WASTE Product Size: 1000 mg Product Wasted: ___ mg Vancomycin No 2001 mg: Me moria 4-01 infuse l 00:00: over 2.5 [place] 00 hours For adult patients only: Round to nearest 250 mg per Medical Staff approval MEDICATION WASTE Product Size: 1000 mg Product Wasted: ___ mg cefepime No Notes: [facility] 06-03 (Same As: l 00:00: Maxipime) [place] 00 MEDICATION WASTE Product Size: 1000 mg Product Wasted: ___ mg Vancomycin No 2000 mg: Me moria 4-01 infuse l 00:00: over 2.5 [place] 00 hours For adult patients only: Round to nearest 250 mg per Medical Staff approval MEDICATION WASTE Product Size: 1000 mg Product Wasted: ___ mg cefepime No Notes: [facility] 4-01 (Same As: l 00:00: Maxipime) MEDICATION WASTE Product Size: 1000 mg Product Wasted: ___ mg Docusate Yes 100 mg = 1 [facility] oria Sodium 100 3-31 cap, PO, l MG Oral 23:50: Daily [place] Capsule [Colace] Docusate Yes 100 mg = 1 [facility] Sodium 100 3-31 cap, PO, l MG Oral 23:50: Daily [place] Capsule [Colace] Docusate Yes 100 mg = 1 [facility] Sodium 100 3-31 cap, PO, l MG Oral 23:50: Daily [place] Capsule [Colace] Aspirin 81 Yes 81 mg = 1 Me moria MG Enteric 3-31 tab, PO, l Coated 23:49: Daily [place] Tablet midodrine Yes 2.5 mg = 1 Me moria 2.5 mg oral 3-31 tab, PO, l tablet 23:49: Daily [place] Aspirin 81 Yes 81 mg = 1 Me moria MG Enteric 3-31 tab, PO, l Coated 23:49: Daily [place] Tablet midodrine Yes 2.5 mg = 1 Me moria 2.5 mg oral 3-31 tab, PO, l tablet 23:49: Daily [place] Aspirin 81 0 Yes 81 mg = 1 Me moria MG Enteric 3-31 tab, PO, l Coated 23:49: Daily [place] Tablet midodrine 0 Yes 2.5 mg = 1 Me moria 2.5 mg oral 3-31 tab, PO, l tablet 23:49: Daily Glucagon 2018-0 No 1 mg, [facility] 3-31 Route: IM, l 22:10: Drug form: PDR/INJ, PRN, Dosing Weight 96.8, kg, PRN Blood Glucose Results, Start date: 06/02/18 17:10:00 CDT, 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, Stop date: 07/02/18 17:09:00 CDT Dextrose 0 No 25 gm, 50 Kuldeep teto 50% Syringe 3-31 mL, Route: l 22:10: IVP, Drug Form: INJ, Dosing Weight 96.8, kg, PRN, PRN Blood Glucose Results, Start date: 06/02/18 17:10:00 CDT, 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, Stop date: 07/02/18 17:09:00 CDT Acetaminoph No Notes: Do M emoria en 06-02 not exceed l 22:10: 4 gm/day. [place] 00 (Same as: Tylenol) Melatonin No Notes: Memori a 3- (Same as: l 22:10: Melatonin) Ondansetron No Notes: Kuldeep teto 3- (Same as: l 22:10: Zofran) MEDICATION WASTE Product Size: 4 mg Product Wasted: ___ mg Glucagon No 1 mg, [facility]oria 06-02 Route: IM, l 22:10: Drug form: [place] PDR/INJ, PRN, Dosing Weight 96.8, kg, PRN [...] 06-02 not exceed l 22:10: 4 gm/day. [place] 00 (Same as: Tylenol) Melatonin No Notes: Memori a 3-31 (Same as: l 22:10: Melatonin) Ondansetron No Notes: Kuldeep teto 3-31 (Same as: l 22:10: Zofran) [place] 00 MEDICATION WASTE Product Size: 4 mg Product Wasted: ___ mg Glucagon No 1 mg, Memoria 06-02 Route: IM, l 22:10: Drug form: PDR/INJ, PRN, Dosing Weight 96.8, [...] as: Tylenol) Melatonin No Notes: Memori a 06-02 (Same as: l 22:10: Melatonin) Ondansetron No Notes: Kuldeep teto 31 (Same as: l 22:10: Zofran) MEDICATION WASTE Product Size: 4 mg Product Wasted: ___ mg Trazodone Yes 50 mg = 1 Mem oria Hydrochlori 3-31 tab, PO, l de 50 MG 22:08: Bedtime [place] n Oral Tablet tramadol Yes 100 mg = 2 Mem oria hydrochlori 3-31 tab, PO, l de 50 MG 22:08: Bedtime [place] Oral Tablet Trazodone Yes 50 mg = 1 [facility] o[facility] Hydrochlori 3-31 tab, PO, l de 50 MG 22:08: Bedtime [place] Oral Tablet 00 tramadol Yes 100 mg = 2 Mem oria hydrochlori 3-31 tab, PO, l de 50 MG 22:08: Bedtime [place] Oral Tablet Trazodone Yes 50 mg = 1 [facility] o[facility] Hydrochlori 3-31 tab, PO, l de 50 MG 22:08: Bedtime [place] Oral Tablet tramadol 2019- Yes 100 mg = 2 Mem oria hydrochlori 3-31 tab, PO, l de 50 MG 22:08: Bedtime [place] n Oral Tablet 00 Metoprolol 2019- Yes 25 mg = 1 Me moria Succinate 3-31 tab, PO, l ER 25 mg 22:06: Daily [place] oral 00 tablet, extended release DULoxetine 2019- Yes 30 mg = 1 Me moria 30 mg oral 3-31 cap, PO, l delayed 22:06: Daily [place] release 00 capsule Metoprolol 2019-0 Yes 25 mg = 1 Me moria Succinate 3-31 tab, PO, l ER 25 mg 22:06: Daily [place] oral 00 tablet, extended release DULoxetine 2019- Yes 30 mg = 1 Me moria 30 mg oral 3-31 cap, PO, l delayed 22:06: Daily [place] release 00 capsule Metoprolol 2018-0 Yes 25 mg = 1 Me moria Succinate 3-31 tab, PO, l ER 25 mg 22:06: Daily [place] oral 00 tablet, extended release DULoxetine Yes 30 mg = 1 Me moria 30 mg oral 3-31 cap, PO, l delayed 22:06: Daily [place] release 00 capsule lisinopril Yes 2.5 mg = Mem oria 5 mg oral 3-19 0.5 tab, l tablet 15:58: PO, Daily, Marcia nn 00 # 30 tab, 0 Refill(s), Pharmacy: [place] [id number] lisinopril 2018- Yes 2.5 mg = Mem oria 5 mg oral 3-19 0.5 tab, l tablet 15:58: PO, Daily, Marcia nn 00 # 30 tab, 0 Refill(s), Pharmacy: [place] [id number] lisinopril 2018- Yes 2.5 mg = Mem oria 5 mg oral 3-19 0.5 tab, l tablet 15:58: PO, Daily, Marcia nn 00 # 30 tab, 0 Refill(s), Pharmacy: [place] [id number] Vancomycin 2018-0 No 2001 mg: Me moria 3-18 infuse l 23:00: over 2.5 [place] 00 hours For adult patients only: Round to nearest 250 mg per Medical Staff approval MEDICATION WASTE Product Size: 1000 mg Product Wasted: ___ mg Vancomycin 2019- No 2001 mg: Me moria 3-18 infuse l 23:00: over 2.5 [place] 00 hours For adult patients only: Round to nearest 250 mg per Medical Staff approval MEDICATION WASTE Product Size: 1000 mg Product Wasted: ___ mg Vancomycin 2019- No 2001 mg: Me moria 3-18 infuse l 23:00: over 2.5 [place] 00 hours For adult patients only: Round to nearest 250 mg per Medical Staff approval MEDICATION WASTE Product Size: 1000 mg Product Wasted: ___ mg Fleet Enema No 133 mL, Mem oria 3-17 Route: MO, l 22:12: Drug Form: [place] 00 CARLOZ, Dosing Weight 80.909, kg, ONCE, Start date: 05/19/18 17:12:00 CDT, Stop date: 05/19/18 17:12:00 CDT Fleet Enema No 133 mL, Mem oria 3-17 Route: MO, l 22:12: Drug Form: [place] 00 CARLOZ, Dosing Weight 80.909, kg, ONCE, Start date: 05/19/18 17:12:00 CDT, Stop date: 05/19/18 17:12:00 CDT Fleet Enema No 133 mL, Mem oria 3-17 Route: MO, l 22:12: Drug Form: [place] 00 CARLOZ, Dosing Weight 80.909, kg, ONCE, Start date: 05/19/18 17:12:00 CDT, Stop date: 05/19/18 17:12:00 CDT Naloxone No Notes: [facility] 3-15 Same as l 19:11: Narcan [place] Naloxone No Notes: [facility] 3-15 Same as l 19:11: Narcan [place] Naloxone No Notes: [facility] 3-15 Same as l 19:11: Narcan [place] Romazicon Yes Notes: Memori a 3-15 (Same as: l 19:01: Romazicon) [place] Romazicon Yes Notes: Memori a 3-15 (Same as: l 19:01: Romazicon) [place] Romazicon 2019-0 Yes Notes: Memori a 3-15 (Same as: l 19:01: Romazicon) glycopyrrol 2019-0 No Route: IV, Memoria ate (ANES) 3-15 Drug form: l 16:39: INJ, ONCE, [place] 00 Stop date: 05/17/18 11:39:00 CDT neostigmine 2019-0 No Route: IV, [facility] (ANES) 3-15 Drug form: l 16:39: INJ, ONCE, Stop date: 05/17/18 11:39:00 CDT morphine 2019-0 No Route: IV, Mem oria Sulfate 3-15 Drug form: l (ANES) 16:39: INJ, ONCE, Marcia nn Stop date: 05/17/18 11:39:00 CDT ondansetron 2019-0 No Route: IV, [facility] (ANES) 3-15 Drug form: l 16:39: INJ, ONCE, Stop date: 05/17/18 11:39:00 CDT glycopyrrol 2019-0 No Route: IV, Memoria ate (ANES) 3-15 Drug form: l 16:39: INJ, ONCE, Stop date: 05/17/18 11:39:00 CDT neostigmine 2019-0 No Route: IV, [facility] (ANES) 3-15 Drug form: l 16:39: INJ, ONCE, Stop date: 05/17/18 11:39:00 CDT morphine 2019-0 No Route: IV, Mem oria Sulfate 3-15 Drug form: l (ANES) 16:39: INJ, ONCE, Marcia nn Stop date: 05/17/18 11:39:00 CDT ondansetron 2019-0 No Route: IV, Memoria (ANES) 3-15 Drug form: l 16:39: INJ, ONCE, Stop date: 05/17/18 11:39:00 CDT glycopyrrol 2019-0 No Route: IV, Memoria ate (ANES) 3-15 Drug form: l 16:39: INJ, ONCE, Stop date: 05/17/18 11:39:00 CDT neostigmine 2019-0 No Route: IV, Memoria (ANES) 3-15 Drug form: l 16:39: INJ, ONCE, Stop date: 05/17/18 11:39:00 CDT morphine 2019-0 No Route: IV, Mem oria Sulfate 3-15 Drug form: l (ANES) 16:39: INJ, ONCE, Stop date: 05/17/18 11:39:00 CDT ondansetron 2019-0 No Route: IV, Memoria (ANES) 3-15 Drug form: l 16:39: INJ, ONCE, Stop date: 05/17/18 11:39:00 CDT cefepime 2019-0 No Route: IV, Mem oria (ANES) 1000 3-15 Drug form: l mg 15:59: INJ, Start date: 05/17/18 10:59:00 CDT, Stop date: 05/17/18 11:59:00 CDT cefepime 2019-0 No Route: IV, Mem oria (ANES) 1000 3-15 Drug form: l mg 15:59: INJ, date: 05/17/18 10:59:00 CDT, Stop date: 05/17/18 11:59:00 CDT cefepime [id number] No Route: IV, Mem oria (ANES) 1000 [...] INJ, ONCE, Stop date: 05/17/18 10:53:00 CDT fentaNYL 2019-0 No Route: IV, Mem oria (ANES) 3-15 Drug form: l 15:53: INJ, ONCE Stop date: 05/17/18 10:53:00 CDT phenylephri 2019-0 No Route: IV, Memoria ne (ANES) 3-15 Drug form: l 15:53: INJ, ONCE, Stop date: 05/17/18 10:53:00 CDT fentaNYL 2019-0 No Route: IV, Mem [...] INJ, ONCE, Stop date: 05/17/18 10:48:00 CDT lidocaine 2019-0 No Route: IV, Me [...] INJ, ONCE, Stop date: 05/17/18 10:48:00 CDT lidocaine 2019-0 No Route: IV, Me [...] (ANES) 3-15 Drug form: l 15:43: SOLN, [place] ONCE, Stop date: 05/17/18 10:43:00 CDT succinylcho 2019-0 No Route: IV, Memoria line (ANES) 3-15 Drug form: l 15:43: INJ, ONCE, Stop date: 05/17/18 10:43:00 CDT midazolam 2019-0 No Route: IV, Me moria (ANES) 3-15 Drug form: l 15:43: SOLN, [place] ONCE, Stop date: 05/17/18 10:43:00 CDT succinylcho 2019-0 No Route: IV, Memoria line (ANES) 3-15 Drug form: l 15:43: INJ, ONCE, Stop date: 05/17/18 10:43:00 CDT midazolam 2019-0 No Route: IV, Me moria (ANES) 3-15 Drug form: l 15:43: SOLN, [place] 00 ONCE, Stop date: 05/17/18 10:43:00 CDT Flumazenil No Notes: Memor ia 3-15 (Same as: l 15:35: Romazicon) Morphine No Notes: Memoria 3-15 (Same l 15:35: as:MORPhin [place] 00 e Sulfate) Hydromorpho No Notes: Kuldeep teto ne 3-15 Same as l 15:35: Dilaudid [place] 00 Acetaminoph No Notes: Max Memoria en 3-15 acetaminop l 15:35: hen 4000 [place] 00 mg/day (4 gm/day). (Same as: Tylenol Extra Strength) Promethazin No Notes: Do M emoria e 3-15 not give l 15:35: IV push. [place] 00 (Same as: Phenergan) Ondansetron No Notes: [...] Memoria 3-15 Same as l 15:35: Narcan Flumazenil No Notes: Memor ia 3-15 (Same as: l 15:35: Romazicon) Morphine No Notes: Memoria 3-15 (Same l 15:35: as:MORPhin [place] 00 e Sulfate) Hydromorpho No Notes: Kuldeep teto ne 3-15 Same as l 15:35: Dilaudid [place] 00 Acetaminoph No Notes: Max Memoria en 3-15 acetaminop l 15:35: hen 4000 [place] 00 mg/day (4 gm/day). (Same as: Tylenol Extra Strength) Promethazin No Notes: Do M emoria e 3-15 not give l 15:35: IV push. [place] 00 (Same as: Phenergan) Ondansetron No Notes: Kuldeep tteo 3-15 (Same as: l 15:35: Zofran) [place] 00 MEDICATION WASTE Product Size: 4 mg Product Wasted: ___ mg Meperidine No Notes: Memor ia 3-15 (Same as: l 15:35: Demerol) "Use Precaution in Elderly, Seizure disorders, and Renal impairment " Glycopyrrol No Notes: Kuldeep teto ate 3-15 (Same as: l 15:35: Robinul) [place] 00 Naloxone No Notes: Memoria 3-15 Same as l 15:35: Narcan Flumazenil No Notes: Memor ia 3-15 (Same as: l 15:35: Romazicon) Morphine No Notes: Memoria 3-15 (Same l 15:35: as:MORPhin [place] 00 e Sulfate) Hydromorpho No Notes: Kuldeep teto ne 3-15 Same as l 15:35: Dilaudid Acetaminoph No Notes: Max Memoria en 3-15 acetaminop l 15:35: hen 4000 [place] 00 mg/day (4 gm/day). (Same as: Tylenol Extra Strength) Promethazin No Notes: Do M emoria e 3-15 not give l 15:35: IV push. [place] 00 (Same as: Phenergan) Ondansetron No Notes: Kuldeep teto 3-15 (Same as: l 15:35: Zofran) MEDICATION WASTE Product Size: 4 mg Product Wasted: ___ mg Meperidine No Notes: Memor ia 3-15 (Same as: l 15:35: Demerol) [place] 00 "Use Precaution in Elderly, Seizure disorders, and Renal impairment " Glycopyrrol No Notes: Kuldeep teto ate 3-15 (Same as: l 15:35: Robinul) [place] 00 Naloxone 2018- No Notes: Memoria 3-15 Same as l 15:35: Narcan [place] acetaminoph No Route: IV, Memoria en (ANES) 3-15 Drug form: l 10 mg 15:17: INJ, Start Arsenio n date: 05/17/18 10:17:00 CDT, Stop date: 05/17/18 11:17:00 CDT acetaminoph No Route: IV, Memoria en (ANES) 3-15 Drug form: l 10 mg 15:17: INJ, Start Arsenio n date: 05/17/18 10:17:00 CDT, Stop date: 05/17/18 11:17:00 CDT acetaminoph No Route: IV, Memoria en (ANES) 3-15 Drug form: l 10 mg 15:17: INJ, Start Arsenio n date: 05/17/18 10:17:00 CDT, Stop date: 05/17/18 11:17:00 CDT phenylephri No Route: IV, Memoria ne (ANES) 3-15 Drug form: l 100 14:50: INJ, Start [place] microgram date: 05/17/18 9:50:00 CDT, Stop date: 05/17/18 10:50:00 CDT phenylephri No Route: IV, Memoria ne (ANES) 3-15 Drug form: l 100 14:50: INJ, Start [place] microgram date: 05/17/18 9:50:00 CDT, Stop date: 05/17/18 10:50:00 CDT phenylephri No Route: IV, Memoria ne (ANES) 3-15 Drug form: l 100 14:50: INJ, Start [place] microgram date: 05/17/18 9:50:00 CDT, Stop date: 05/17/18 10:50:00 CDT Lactated No Route: IV, Mem oria Ringers 3-15 Total l Injection 14:30: Volume: Marcia nn IV (ANES) 00 1,000, 1000 mL Start date: 05/17/18 9:30:00 CDT, Stop date: 05/17/18 10:30:00 CDT Lactated 0 No Route: IV, Mem oria Ringers 3-15 Total l Injection 14:30: Volume: Marcia nn IV (ANES) 00 1,000, 1000 mL Start date: 05/17/18 9:30:00 CDT, Stop date: 05/17/18 10:30:00 CDT Lactated 0 No Route: IV, Mem oria Ringers 3-15 Total l Injection 14:30: Volume: Marcia nn IV (ANES) 00 1,000, 1000 mL Start date: 05/17/18 9:30:00 CDT, Stop date: 05/17/18 10:30:00 CDT Lisinopril No Notes: Memor ia 3-15 (Same as: l 14:00: Prinivil, [place] 00 Zestril) Lisinopril No Notes: Memor ia 3-15 (Same as: l 14:00: Prinivil, [place] 00 Zestril) Lisinopril 0 No Notes: Memor ia 3-15 (Same as: l 14:00: Prinivil, [place] 00 Zestril) Vancomycin 2018- No 2000 mg: Me moria 3-15 infuse l 06:00: over 2.5 [place] 00 hours For adult patients only: Round to nearest 250 mg per Medical Staff approval MEDICATION WASTE Product Size: 1000 mg Product Wasted: ___ mg Vancomycin 2018- No 2000 mg: Me moria 3-15 infuse l 06:00: over 2.5 [place] 00 hours For adult patients only: Round to nearest 250 mg per Medical Staff approval MEDICATION WASTE Product Size: 1000 mg Product Wasted: ___ mg Vancomycin 2018-0 No 2000 mg: Me moria 3-15 infuse l 06:00: over 2.5 [place] 00 hours For adult patients only: Round to nearest 250 mg per Medical Staff approval MEDICATION WASTE Product Size: 1000 mg Product Wasted: ___ mg alteplase 2 2018- No Notes: Kuldeep teto mg 3-14 "Syringe l injection 22:49: for [place] 00 catheter clearance or interventi onal radiology [...] mg 3-14 "Syringe l injection 22:49: for [place] 00 catheter clearance or interventi onal radiology [...] mg 3-14 "Syringe l injection 22:48: for [place] 00 catheter clearance or interventi onal radiology use. Reconstitu te each vial of Cathflo Activase with 2.2 ml Sterile Water resulting in a 1 mg/ml solution. (Same as: Activase) MEDICATION WASTE Product Size: 2 mg Product Wasted: ___ mg alteplase 2 No Notes: Kuldeep teto mg 3-14 "Syringe l injection 22:48: for [place] 00 catheter clearance or interventi onal radiology use. Reconstitu te each vial of Cathflo Activase with 2.2 ml Sterile Water resulting in a 1 mg/ml solution. (Same as: Activase) MEDICATION WASTE Product Size: 2 mg Product Wasted: ___ mg Chlorpromaz No Notes: Kuldeep teto ine 3-14 (Same As: l 03:48: Thorazine) Chlorpromaz No Notes: Kuldeep teto ine 3-14 (Same As: l 03:48: Thorazine) Chlorpromaz No Notes: Kuldeep teto ine 3-14 (Same As: l 03:48: Thorazine) Metoclopram No 10 mg, Kuldeep teto thor 3-13 Route: l 17:13: IVP, ONCE, [place] 00 Dosing Weight 80.909, kg, Start date: 05/15/18 12:13:00 CDT, Stop date: 05/15/18 12:13:00 CDT Metoclopram No 10 mg, Kuldeep teto thor 3-13 Route: l 17:13: IVP, ONCE, Dosing Weight 80.909, kg, Start date: 05/15/18 12:13:00 CDT, Stop date: 05/15/18 12:13:00 CDT Metoclopram No 10 mg, Kuldeep teto thor 3-13 Route: l 17:13: IVP, ONCE, Dosing Weight 80.909, kg, Start date: 05/15/18 12:13:00 CDT, Stop date: 05/15/18 12:13:00 CDT Docusate No Notes: Memoria Sodium 100 3-13 (Same as: l MG Oral 15:11: Colace) [place] Capsule 00 (Do Not [Colace] Crush) Docusate No Notes: Memoria Sodium 100 3-13 (Same as: l MG Oral 15:11: Colace) [place] Capsule 00 (Do Not [Colace] Crush) Docusate No Notes: Memoria Sodium 100 3-13 (Same as: l MG Oral 15:11: Colace) [place] Capsule 00 (Do Not [Colace] Crush) Chlorpromaz No Notes: Kuldeep teto ine 3-12 (Same As: l 23:30: Thorazine) Chlorpromaz 2018- No Notes: Kuldeep teto ine 3-12 (Same As: l 23:30: Thorazine) Chlorpromaz No Notes: Kuldeep teto ine 3-12 (Same As: l 23:30: Thorazine) Reglan No Notes: Memoria 3-12 (Same as: l 21:45: Reglan) Reglan No Notes: Memoria 3-12 (Same as: l 21:45: Reglan) Reglan No Notes: Memoria 3-12 (Same as: l 21:45: Reglan) cefepime Yes Notes: Memoria 3-12 (Same As: l 20:00: Maxipime) MEDICATION WASTE Product Size: 1000 mg Product Wasted: _0__ mg cefepime Yes Notes: Memoria 3-12 (Same As: l 20:00: Maxipime) MEDICATION WASTE Product Size: 1000 mg Product Wasted: _0__ mg cefepime 2018- Yes Notes: Memoria 3-12 (Same As: l 20:00: Maxipime) MEDICATION WASTE Product Size: 1000 mg Product Wasted: _0__ mg Fentanyl 2018- No Notes: Memoria 3-12 (Same as: l 16:56: Sublimaze) Preservati ve free. Fentanyl No Notes: Memoria 3-12 (Same as: l 16:56: Sublimaze) Preservati ve free. Fentanyl 2018- No Notes: Memoria 3-12 (Same as: l 16:56: Sublimaze) Preservati ve free. lidocaine No Notes: Memori a 3-12 Preservati l 05:00: ve free. (Same as: Xylocaine MPF) lidocaine No Notes: Memori a 3-12 Preservati l 05:00: ve free. (Same as: Xylocaine MPF) lidocaine 2019-0 No Notes: Memori a 3-12 Preservati l 05:00: ve free. [place] 00 (Same as: Xylocaine MPF) Sodium 2019-0 No 250 mL, Memoria Chloride 3-12 Rate: To l 0.9% 02:42: prime line [place] (titrate) 00 and flush 250 mL remaining blood products., Dosing Weight 80.909, kg, Route: IV, Total Volume: 250, Priority: Routine, Start Date: 05/13/18 21:42:00 CDT, 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, Stop date: 06/12/18 21:41:00 CDT, Replace Every: 24 hr Sodium 2019-0 No 250 mL, Memoria Chloride 3-12 Rate: To l 0.9% 02:42: prime line [place] (titrate) 00 and flush 250 mL remaining blood products., Dosing Weight 80.909, kg, Route: IV, Total Volume: 250, Priority: Routine, Start Date: 05/13/18 21:42:00 CDT, 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, Stop date: 06/12/18 21:41:00 CDT, Replace Every: 24 hr Sodium 2019-0 No 250 mL, Memoria Chloride 3-12 Rate: To l 0.9% 02:42: prime line [place] (titrate) 00 and flush 250 mL remaining blood products., Dosing Weight 80.909, kg, Route: IV, Total Volume: 250, Priority: Routine, Start Date: 05/13/18 21:42:00 CDT, 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, Stop date: 06/12/18 21:41:00 CDT, Replace Every: 24 hr normal 2019-0 No 1,000 mL, Memori a saline 0.9% 3-12 Rate: 75 l IV 1,000 mL 01:21: ml/hr, Herm ladi 00 Infuse over: 13.3 hr, Route: IV, Dosing Weight 80.909 kg, Total Volume: 1,000, Start date: 05/13/18 20:21:00 CDT, 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, Stop date: 06/12/18 20:20:00 CDT, 2.05, m2 normal 2019-0 No 1,000 mL, Memori a saline 0.9% 3-12 Rate: 75 l IV 1,000 mL 01:21: ml/hr, Herm ladi 00 Infuse over: 13.3 hr, Route: IV, Dosing Weight 80.909 kg, Total Volume: 1,000, Start date: 05/13/18 20:21:00 CDT, 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, Stop date: 06/12/18 20:20:00 CDT, 2.05, m2 normal No 1,000 mL, Memori a saline 0.9% 3-12 Rate: 75 l IV 1,000 mL 01:21: ml/hr, Herm ladi 00 Infuse over: 13.3 hr, Route: IV, Dosing Weight 80.909 kg, Total Volume: 1,000, Start date: 05/13/18 20:21:00 CDT, 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, Stop date: 06/12/18 20:20:00 CDT, 2.05, m2 Morphine 2018- No Notes: Memoria 3-11 (Same l 22:48: as:MORPhin [place] 00 e Sulfate) Morphine No Notes: Memoria 3-11 (Same l 22:48: as:MORPhin [place] 00 e Sulfate) Morphine No Notes: Memoria 3-11 (Same l 22:48: as:MORPhin [place] 00 e Sulfate) albumin No 250 mL, Memoria human 5% 3-11 Route: IV, l intravenous 17:52: Dosing Herm ladi solution 00 Weight 80.909, kg, ONCE, NOW, Start date: 05/13/18 12:52:00 CDT, Stop date: 05/13/18 12:52:00 CDT, Indication : Other see comments albumin No 250 mL, Memoria human 5% 3-11 Route: IV, l intravenous 17:52: Dosing Herm ladi solution 00 Weight 80.909, kg, ONCE, NOW, Start date: 05/13/18 12:52:00 CDT, Stop date: 05/13/18 12:52:00 CDT, Indication : Other see comments albumin No 250 mL, Memoria human 5% 3-11 Route: IV, l intravenous 17:52: Dosing Herm ladi solution 00 Weight 80.909, kg, ONCE, NOW, Start date: 05/13/18 12:52:00 CDT, Stop date: 05/13/18 12:52:00 CDT, Indication : Other see comments morphine 20190 No Route: IV, Mem oria Sulfate 3-11 Drug form: l (ANES) 15:36: INJ, ONCE, Marcia nn Stop date: 05/13/18 10:36:00 CDT morphine 2019-0 No Route: IV, Mem oria Sulfate 3-11 Drug form: l (ANES) 15:36: INJ, ONCE, [place] nn Stop date: 05/13/18 10:36:00 CDT morphine 2018-0 No Route: IV, Mem oria Sulfate 3-11 Drug form: l (ANES) 15:36: INJ, ONCE, [place] nn Stop date: 05/13/18 10:36:00 CDT sugammadex 2019-0 No Route: IV, M emoria (ANES) 3-11 Drug form: l 14:05: SOLN, [place] ONCE, Stop date: 05/13/18 9:05:00 CDT acetaminoph 0 No Route: IV, Memoria en (ANES) 3-11 Drug form: l 14:05: INJ, ONCE, [place] Stop date: 05/13/18 9:05:00 CDT sugammadex 2018-0 No Route: IV, M emoria (ANES) 3-11 Drug form: l 14:05: SOLN, [place] 00 ONCE, Stop date: 05/13/18 9:05:00 CDT acetaminoph 0 No Route: IV, Memoria en (ANES) 3-11 Drug form: l 14:05: INJ, ONCE, [place] 00 Stop date: 05/13/18 9:05:00 CDT sugammadex 2018-0 No Route: IV, M emoria (ANES) 3-11 Drug form: l 14:05: SOLN, [place] 00 ONCE, Stop date: 05/13/18 9:05:00 CDT acetaminoph 2018-0 No Route: IV, Memoria en (ANES) 3-11 Drug form: l 14:05: INJ, ONCE, [place] 00 Stop date: 05/13/18 9:05:00 CDT Albuterol 2019-0 No Notes: SEE Me moria 0.83 MG/ML 3-11 RT l Inhalant 13:39: DOCUMENTAT Her fernandes Solution 00 ION (Same as: Proventil) Hydralazine 2019- No Notes: Kuldeep teto 3-11 (Same as: l 13:39: Apresoline [place] 00 ) Push over 5 minutes Hydromorpho 2018- No Notes: Kuldeep teto ne 3-11 Same as l 13:39: Dilaudid [place] 00 Morphine 2019-0 No Notes: Memoria 3-11 (Same l 13:39: as:MORPhin [place] 00 e Sulfate) Naloxone 2018- No Notes: Memoria 3-11 Same as l 13:39: Narcan [place] 00 Flumazenil 2019- No Notes: Memor ia 3-11 (Same as: l 13:39: Romazicon) [place] Dexamethaso 2018- No Notes: Kuldeep teto ne 3-11 Concentrat l 13:39: ion: [place] 00 4mg/ml Ondansetron 2019- No Notes: Kuldeep teto 3-11 (Same as: l 13:39: Zofran) [place] 00 MEDICATION WASTE Product Size: 4 mg Product Wasted: ___ mg Albuterol 2019- No Notes: SEE Me moria 0.83 MG/ML 3-11 RT l Inhalant 13:39: DOCUMENTAT Her [place] Solution 00 ION (Same as: Proventil) Hydralazine 2019- No Notes: Kuldeep teto 3-11 (Same as: l 13:39: Apresoline [place] 00 ) Push over 5 minutes Hydromorpho 2019- No Notes: Kuldeep teto ne 3-11 Same as l 13:39: Dilaudid [place] 00 Morphine 2019-0 No Notes: Memoria 3-11 (Same l 13:39: as:MORPhin [place] 00 e Sulfate) Naloxone 2019-0 No Notes: Memoria 3-11 Same as l 13:39: Narcan [place] 00 Flumazenil 2019-0 No Notes: Memor ia 3-11 (Same as: l 13:39: Romazicon) [place] 00 Dexamethaso 2018- No Notes: Kuldeep teto ne 3-11 Concentrat l 13:39: ion: [place] 00 4mg/ml Ondansetron 2019-0 No Notes: Kuldeep teto 3-11 (Same as: l 13:39: Zofran) MEDICATION WASTE Product Size: 4 mg Product Wasted: ___ mg Albuterol No Notes: SEE Me moria 0.83 [...] teto ne 3-11 Concentrat l 13:39: ion: [place] 00 4mg/ml Ondansetron No Notes: Kuldeep teto 3-11 (Same as: l 13:39: Zofran) MEDICATION WASTE Product Size: 4 mg Product Wasted: ___ mg esmolol No Route: IV, Kuldeep teto (ANES) 3-11 Drug form: l 13:38: INJ, ONCE, [place] Stop date: 05/13/18 8:38:00 CDT esmolol No Route: IV, Kuldeep teto (ANES) 3-11 Drug form: l 13:38: INJ, ONCE, [place] Stop date: 05/13/18 8:38:00 CDT esmolol No Route: IV, Kuldeep teto (ANES) 3-11 Drug form: l 13:38: INJ, ONCE, [place] Stop date: 05/13/18 8:38:00 CDT fentaNYL No Route: IV, Mem oria (ANES) 3-11 Drug form: l 13:28: INJ, ONCE, [place] 00 Stop date: 05/13/18 8:28:00 CDT fentaNYL 2019-0 No Route: IV, Mem oria (ANES) 3-11 Drug form: l 13:28: INJ, ONCE, Stop date: 05/13/18 8:28:00 CDT fentaNYL 2019-0 No Route: IV, Mem oria (ANES) 3-11 Drug form: l 13:28: INJ, ONCE, Stop date: 05/13/18 8:28:00 CDT midazolam 2019-0 No Route: IV, Me moria (ANES) 3-11 Drug form: l 13:23: SOLN, [place] ONCE, Stop date: 05/13/18 8:23:00 CDT rocuronium 2019-0 No Route: IV, M emoria (ANES) 3-11 Drug form: l 13:23: INJ, ONCE, Stop date: 05/13/18 8:23:00 CDT lidocaine 2019-0 No Route: IV, Me moria (ANES) 3-11 Drug form: l 13:23: INJ, ONCE, Stop date: 05/13/18 8:23:00 CDT propofol 2019-0 No Route: IV, Mem oria (ANES) 3-11 Drug form: l 13:23: INJ, ONCE, Stop date: 05/13/18 8:23:00 CDT midazolam 2019-0 No Route: IV, Me moria (ANES) 3-11 Drug form: l 13:23: SOLN, [place] 00 ONCE, Stop date: 05/13/18 8:23:00 CDT rocuronium 2019-0 No Route: IV, M emoria (ANES) 3-11 Drug form: l 13:23: INJ, ONCE, Stop date: 05/13/18 8:23:00 CDT lidocaine 2019-0 No Route: IV, Me moria (ANES) 3-11 Drug form: l 13:23: INJ, ONCE, Stop date: 05/13/18 8:23:00 CDT propofol 2019-0 No Route: IV, Mem oria (ANES) 3-11 Drug form: l 13:23: INJ, ONCE, Stop date: 05/13/18 8:23:00 CDT midazolam 2019-0 No Route: IV, Me moria (ANES) 3-11 Drug form: l 13:23: SOLN, 00 ONCE, Stop date: 05/13/18 8:23:00 CDT rocuronium 2019-0 No Route: IV, M emoria (ANES) 3-11 Drug form: l 13:23: INJ, ONCE, Stop date: 05/13/18 8:23:00 CDT lidocaine 2019-0 No Route: IV, Me moria (ANES) 3-11 Drug form: l 13:23: INJ, ONCE, Stop date: 05/13/18 8:23:00 CDT propofol 2019-0 No Route: IV, Mem oria (ANES) 3- Drug form: l 13:23: INJ, ONCE, Stop date: 05/13/18 8:23:00 CDT phenylephri 2019-0 No Route: IV, Memoria ne (ANES) 3-11 Drug form: l 13:18: INJ, ONCE, Stop date: 05/13/18 8:18:00 CDT phenylephri 2019-0 No Route: IV, Memoria ne (ANES) 3-11 Drug form: l 13:18: INJ, ONCE, Stop date: 05/13/18 8:18:00 CDT phenylephri 2019-0 No Route: IV, Memoria ne (ANES) 3-11 Drug form: l 13:18: INJ, ONCE, Stop date: 05/13/18 8:18:00 CDT ePHEDrine 2019-0 No Route: IV, Me moria (ANES) 3-11 Drug form: l 13:08: INJ, ONCE, Stop date: 05/13/18 8:08:00 CDT ePHEDrine 2019-0 No Route: IV, Me moria (ANES) 3-11 Drug form: l 13:08: INJ, ONCE, Stop date: 05/13/18 8:08:00 CDT ePHEDrine 2019-0 No Route: IV, Me moria (ANES) 3-11 Drug form: l 13:08: INJ, ONCE, [place] 00 Stop date: 05/13/18 8:08:00 CDT Lactated No Route: IV, Mem oria Ringers 3-11 Total l Injection 12:09: Volume: Marcia nn IV (ANES) 00 1,000, 1000 mL Start date: 05/13/18 7:09:00 CDT, Stop date: 05/13/18 8:09:00 CDT Lactated No Route: IV, Mem oria Ringers 3-11 Total l Injection 12:09: Volume: Marcia nn IV (ANES) 00 1,000, 1000 mL Start date: 05/13/18 7:09:00 CDT, Stop date: 05/13/18 8:09:00 CDT Lactated No Route: IV, Mem oria Ringers 3-11 Total l Injection 12:09: Volume: Marcia nn IV (ANES) 00 1,000, 1000 mL Start date: 05/13/18 7:09:00 CDT, Stop date: 05/13/18 8:09:00 CDT Vancomycin 2018- No 2001 mg: Me moria 3-09 infuse l 20:00: over 2.5 [place] 00 hours Vancomycin 2018- No 2001 mg: Me moria 3-09 infuse l 20:00: over 2.5 [place] 00 hours Vancomycin 2018- No 2001 mg: Me moria 3-09 infuse l 20:00: over 2.5 [place] 00 hours heparin 2018- No Notes: Memoria 3-09 porcine l 15:00: heparin [place] 00 heparin No Notes: Memoria 3-09 porcine l 15:00: heparin [place] 00 heparin 2018- No Notes: Memoria 3-09 porcine l 15:00: heparin [place] 00 Acetaminoph No Notes: Kuldeep teto en 325 MG / 05-11 (Same as: l Hydrocodone 01:40: [place] Marcia nn Bitartrate 00 325/5) Do 5 MG Oral not exceed Tablet 4gm/day of [[place] acetaminop 5/325] hen. Acetaminoph No Notes: Kuldeep teto en 325 MG / 05-11 (Same as: l Hydrocodone 01:40: [place] Marcia nn Bitartrate 00 325/5) Do 5 MG Oral not exceed Tablet 4gm/day of [[place] acetaminop 5/325] hen. Acetaminoph No Notes: Kuldeep teto en 325 MG / 3-09 (Same as: l Hydrocodone 01:40: [place] Marcia nn Bitartrate 00 325/5) Do 5 MG Oral not exceed Tablet 4gm/day of [[place] acetaminop 5/325] hen. 24 HR No 25 mg, 1 Memoria Metoprolol 3-08 tab, l Tartrate 25 15:00: Route: PO, [place] MG Extended 00 Drug form: Release ERTAB, Tablet Daily, [Toprol] Start date: 05/10/18 9:00:00 [employer], 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, Stop date: 06/08/18 9:00:00 CDT ferrous No Notes: Memoria sulfate 3-08 Dose=___mg l 15:00: elemental [place] iron duloxetine No 30 mg, 1 Mem oria 3-08 cap, l 15:00: Route: PO, [place] 00 Drug form: DRC, Daily, Dosing Weight 80.909, kg, Start date: 05/10/18 9:00:00 [employer], 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, Stop date: 06/08/18 9:00:00 CDT clopidogrel 0 No Notes: Kuldeep teto 3-08 (Same As: l 15:00: Plavix) [place] 00 Lisinopril No Notes: Memor ia 3-08 (Same as: l 15:00: Prinivil, [place] 00 Zestril) 24 HR No 25 mg, 1 Memoria Metoprolol 3-08 tab, l Tartrate 25 15:00: Route: PO, [place] MG Extended 00 Drug form: Release ERTAB, Tablet Daily, [Toprol] Start date: 05/10/18 9:00:00 [employer], 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, Stop date: 06/08/18 9:00:00 CDT ferrous No Notes: Memoria sulfate 3-08 Dose=___mg l 15:00: elemental [place] iron duloxetine 0 No 30 mg, 1 Mem oria 3-08 cap, l 15:00: Route: PO, [place] 00 Drug form: DRC, Daily, Dosing Weight 80.909, kg, Start date: 05/10/18 9:00:00 [employer], 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, Stop date: 06/08/18 9:00:00 CDT clopidogrel 2018-0 No Notes: Kuldeep teto 3-08 (Same As: l 15:00: Plavix) Lisinopril 2018-0 No Notes: Memor ia 3-08 (Same as: l 15:00: Prinivil, [place] 00 Zestril) 24 HR 0 No 25 mg, 1 [facility] Metoprolol 3-08 tab, l Tartrate 25 15:00: Route: PO, [place] MG Extended 00 Drug form: Release ERTAB, Tablet Daily, [Toprol] Start date: 05/10/18 9:00:00 [employer], 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, Stop date: 06/08/18 9:00:00 CDT ferrous 2019-0 No Notes: Memoria sulfate 3-08 Dose=___mg l 15:00: elemental [place] 00 iron duloxetine 0 No 30 mg, 1 Mem oria 3-08 cap, l 15:00: Route: PO, [place] 00 Drug form: DRC, Daily, Dosing Weight 80.909, kg, Start date: 05/10/18 9:00:00 [employer], 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, Stop date: 06/08/18 9:00:00 CDT clopidogrel 2018-0 No Notes: Kuldeep teto 3-08 (Same As: l 15:00: Plavix) Lisinopril 2018-0 No Notes: Memor ia 3-08 (Same as: l 15:00: Prinivil, [place] 00 Zestril) Saline 0 No 10 mL, [facility]oria Flush 0.9% 3-08 Route: l 06:00: IVP, Drug Form: INJ, Dosing Weight 80.909, kg, Q8H, Start date: 05/10/18 0:00:00 [employer], 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, Stop date: 06/08/18 16:00:00 CDT Saline 20190 No 10 mL, [facility] Flush 0.9% 3-08 Route: l 06:00: IVP, Drug [place] Form: INJ, Dosing Weight 80.909, kg, Q8H, Start date: 05/10/18 0:00:00 [employer], 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, Stop date: 06/08/18 16:00:00 CDT Saline No 10 mL, [facility] Flush 0.9% 3-08 Route: l 06:00: IVP, Drug [place] 00 Form: INJ, Dosing Weight 80.909, kg, Q8H, Start date: 05/10/18 0:00:00 [employer], 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, Stop date: 06/08/18 16:00:00 CDT Mirtazapine No Notes: Kuldeep teto 3-08 (Same l 03:00: as:Remeron [place] ) Trazodone No Notes: Memori a Hydrochlori 3-08 (Same As: l de 50 MG 03:00: Desyrel) Marcia nn Oral Tablet atorvastati No Notes: Kuldeep teto n 3-08 (Same as: l 03:00: Lipitor) [place] Mirtazapine No Notes: Kuldeep teto 3-08 (Same l 03:00: as:Remeron [place] ) Trazodone No Notes: Memori a Hydrochlori 3-08 (Same As: l de 50 MG 03:00: Desyrel) Marcia nn Oral Tablet atorvastati No Notes: Kuldeep teto n 3-08 (Same as: l 03:00: Lipitor) [place] Mirtazapine No Notes: Kuldeep teto 3-08 (Same l 03:00: as:Remeron [place] ) Trazodone No Notes: Memori a Hydrochlori 3-08 (Same As: l de 50 MG 03:00: Desyrel) Marcia nn Oral Tablet atorvastati No Notes: Kuldeep teto n 3-08 (Same as: l 03:00: Lipitor) [place] Saline No 10 mL, [facility] Flush 0.9% 3-07 Route: l 23:54: IVP, Drug [place] 00 Form: INJ, Dosing Weight 80.909, kg, PRN, PRN Line Flush, Start date: 05/09/18 17:54:00 [employer]OR REPRESENTATIVES, 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, Stop date: 06/08/18 18:53:00 CDT Saline 2018-0 No 10 mL, [facility] Flush 0.9% 3-07 Route: l 23:54: IVP, Drug [place] 00 Form: INJ, Dosing Weight 80.909, kg, PRN, PRN Line Flush, Start date: 05/09/18 17:54:00 [employer]OR REPRESENTATIVES, 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, Stop date: 06/08/18 18:53:00 CDT Saline 2018- No 10 mL, Memoria Flush 0.9% 3- Route: l 23:54: IVP, Drug [place] 00 Form: INJ, Dosing Weight 80.909, kg, PRN, PRN Line Flush, Start date: 05/09/18 17:54:00 [employer]OR REPRESENTATIVES, 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, Stop date: 06/08/18 18:53:00 CDT cefepime No Notes: Memoria 3-07 (Same As: l 23:00: Maxipime) 00 MEDICATION WASTE Product Size: 1000 mg Product Wasted: ___ mg Buspirone No Notes: Memori a 3-07 (Same As: l 23:00: BuSpar) cefepime No Notes: [facility]oria 3-07 (Same As: l 23:00: Maxipime) [place] 00 MEDICATION WASTE Product Size: 1000 mg Product Wasted: ___ mg Buspirone No Notes: Memori a 3-07 (Same As: l 23:00: BuSpar) cefepime No Notes: [facility]oria 3-07 (Same As: l 23:00: Maxipime) [place] 00 MEDICATION WASTE Product Size: 1000 mg Product Wasted: ___ mg Buspirone No Notes: Memori a 3-07 (Same As: l 23:00: BuSpar) Alprazolam No Notes: Memor ia 0.25 MG -07 With food l Oral Tablet 22:24: or milk Her fernandes [Xanax] 00 (Same as: Xanax) Alprazolam No Notes: Memor ia 0.25 MG 3-07 With food l Oral Tablet 22:24: or milk Her fernandes [Xanax] 00 (Same as: Xanax) Alprazolam No Notes: Memor ia 0.25 MG 3-07 With food l Oral Tablet 22:24: or milk Her fernandes [Xanax] 00 (Same as: Xanax) BD Normal No Notes: Memori a Saline 3-07 (Same as: l Flush 22:00: BD [place] Posiflush) Vancomycin No Notes: For Bradley freitasria 3-07 adult l 22:00: patients [place] 00 only: Round to nearest 250 mg per Medical Staff approval MEDICATION WASTE Product Size: 1000 mg Product Wasted: ___ mg BD Normal No Notes: Memori a Saline -07 (Same as: l Flush 22:00: BD [place] Posiflush) Vancomycin No Notes: For Bradley freitasria 3-07 adult l 22:00: patients [place] 00 only: Round to nearest 250 mg per Medical Staff approval MEDICATION WASTE Product Size: 1000 mg Product Wasted: ___ mg BD Normal No Notes: Memori a Saline 3-07 (Same as: l Flush 22:00: BD [place] Posiflush) Vancomycin No Notes: For Bradley freitasria 3-07 adult l 22:00: patients [place] 00 only: Round to nearest 250 mg per Medical Staff approval MEDICATION WASTE Product Size: 1000 mg Product Wasted: ___ mg Sodium No 25 mL, [facility] Chloride 05-09 Route: IV, l 0.9% IV 19:59: Start [place] date: 05/09/18 13:59:00 [employer]OR REPRESENTATIVES, 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, Stop date: 06/08/18 14:58:00 CDT, PRN Line Flush BD Normal No Notes: Memori a Saline 3-07 (Same as: l Flush 19:59: BD [place] Posiflush) Sodium No 25 mL, [facility] Chloride 3-07 Route: IV, l 0.9% IV 19:59: Start [place] 00 date: 05/09/18 13:59:00 VENDOR REPRESENTATIVES, 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, Stop date: 06/08/18 14:58:00 CDT, PRN Line Flush BD Normal No Notes: Memori a Saline 3-07 (Same as: l Flush 19:59: BD [place] 00 Posiflush) Sodium No 25 mL, [facility] Chloride 3-07 Route: IV, l 0.9% IV 19:59: Start [place] 00 date: 05/09/18 13:59:00 VENDOR REPRESENTATIVES, 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, Stop date: 06/08/18 14:58:00 CDT, PRN Line Flush BD Normal No Notes: Memori a Saline 3-07 (Same as: l Flush 19:59: BD [place] 00 Posiflush) BD Normal No Notes: Memori a Saline 3-07 (Same as: l Flush 19:58: BD [place] 00 Posiflush) BD Normal No Notes: Memori a Saline 3-07 (Same as: l Flush 19:58: BD [place] 00 Posiflush) BD Normal No Notes: Memori a Saline 3-07 (Same as: l Flush 19:58: BD [place] 00 Posiflush) tramadol Yes 100 mg = 2 Mem oria hydrochlori 3-07 tab, PO, l de 50 MG 19:54: Bedtime, 0 Her fernandes Oral Tablet 00 Refill(s) tramadol Yes 100 mg = 2 Mem oria hydrochlori 3-07 tab, PO, l de 50 MG 19:54: Bedtime, 0 Her fernandes Oral Tablet 00 Refill(s) tramadol Yes 100 mg = 2 Mem oria hydrochlori 3-07 tab, PO, l de 50 MG 19:54: Bedtime, 0 Her fernandes Oral Tablet 00 Refill(s) Cathflo No 1 mg, 1 Memoria Activase 2 3-07 mL, Route: l mg 19:28: INJ, Drug [place] injection 00 form: SOLN, ONCE, Dosing Weight 80.909, kg, Start date: 05/09/18 13:28:00 VENDOR REPRESENTATIVES, Stop date: 05/09/18 13:28:00 VENDOR REPRESENTATIVES, [place] CVAD < 7 [place] alteplase 2 2019-0 No 1 mg, 1 Mem oria mg 3-07 mL, Route: l injection 19:28: INJ, Drug [place] 00 form: SOLN, ONCE, Dosing Weight 80.909, kg, Start date: 05/09/18 13:28:00 VENDOR REPRESENTATIVES, Stop date: 05/09/18 13:28:00 VENDOR REPRESENTATIVES, [place] CVAD < 7 [place] Cathflo 2019-0 No 1 mg, 1 [facility] Activase 2 3-07 mL, Route: l mg 19:28: INJ, Drug [place] injection 00 form: SOLN, ONCE, Dosing Weight 80.909, kg, Start date: 05/09/18 13:28:00 VENDOR REPRESENTATIVES, Stop date: 05/09/18 13:28:00 VENDOR REPRESENTATIVES, [place] CVAD < 7 [place] alteplase 2 2019-0 No 1 mg, 1 Mem oria mg 3-07 mL, Route: l injection 19:28: INJ, Drug [place] 00 form: SOLN, ONCE, Dosing Weight 80.909, kg, Start date: 05/09/18 13:28:00 VENDOR REPRESENTATIVES, Stop date: 05/09/18 13:28:00 VENDOR REPRESENTATIVES, [place] CVAD < 7 [place] Cathflo 2019-0 No 1 mg, 1 [facility] Activase 2 3-07 mL, Route: l mg 19:28: INJ, Drug [place] injection 00 form: SOLN, ONCE, Dosing Weight 80.909, kg, Start date: 05/09/18 13:28:00 VENDOR REPRESENTATIVES, Stop date: 05/09/18 13:28:00 VENDOR REPRESENTATIVES, [place] CVAD < 7 [place] alteplase 2 2019-0 No 1 mg, 1 Mem oria mg 3-07 mL, Route: l injection 19:28: INJ, Drug [place] 00 form: SOLN, ONCE, Dosing Weight 80.909, kg, Start date: 05/09/18 13:28:00 VENDOR REPRESENTATIVES, Stop date: 05/09/18 13:28:00 VENDOR REPRESENTATIVES, [place] CVAD < 7 [place] Morphine 2019-0 No Notes: [facility]oria 3-07 (Same l 19:09: as:MORPhin [place] 00 e Sulfate) Acetaminoph 2019-0 No Notes: Do Bradley emoria en 3-07 not exceed l 19:09: 4 gm/day. [place] 00 (Same as: Tylenol) Ondansetron 2018-0 No Notes: Kuldeep teto 3-07 (Same as: l 19:09: Zofran [place] 00 ODT) Glucagon 2019-0 No 1 mg, Memoria 3-07 Route: IM, l 19:09: Drug form: [place] 00 PDR/INJ, PRN, Dosing Weight 80.909, kg, PRN Blood Glucose Results, Start date: 05/09/18 13:09:00 VENDOR REPRESENTATIVES, 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, Stop date: 06/08/18 14:08:00 CDT Dextrose 2019-0 No 12.5 gm, Memor ia 50% Syringe 3-07 25 mL, l 19:09: Route: [place] 00 IVP, Drug Form: INJ, Dosing Weight 80.909, kg, PRN, PRN Blood Glucose Results, Start date: 05/09/18 13:09:00 VENDOR REPRESENTATIVES, 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, Stop date: 06/08/18 14:08:00 CDT Morphine 2019-0 No Notes: [facility] 3-07 (Same l 19:09: as:MORPhin [place] 00 e Sulfate) Acetaminoph No Notes: Do Bradley landersa en 3- not exceed l 19:09: 4 gm/day. [place] 00 (Same as: Tylenol) Ondansetron 2018- No Notes: Kuldeep teto 3-07 (Same as: l 19:09: Zofran [place] 00 ODT) Glucagon 2019-0 No 1 mg, Memoria 3-07 Route: IM, l 19:09: Drug form: [place] 00 PDR/INJ, PRN, Dosing Weight 80.909, kg, PRN Blood Glucose Results, Start date: 05/09/18 13:09:00 VENDOR REPRESENTATIVES, 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, Stop date: 06/08/18 14:08:00 CDT Dextrose 2019-0 No 12.5 gm, Memor ia 50% Syringe 3-07 25 mL, l 19:09: Route: [place] 00 IVP, Drug Form: INJ, Dosing Weight 80.909, kg, PRN, PRN Blood Glucose Results, Start date: 05/09/18 13:09:00 VENDOR REPRESENTATIVES, 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, Stop date: 06/08/18 14:08:00 CDT Morphine 2018-0 No Notes: [facility] - (Same l 19:09: as:MORPhin e Sulfate) Acetaminoph No Notes: Do M emoria en 05-09 not exceed l 19:09: 4 gm/day. [place] 00 (Same as: Tylenol) Ondansetron No Notes: Kuldeep teto 05-09 (Same as: l 19:09: Zofran ODT) Glucagon No 1 mg, Memoria 05-09 Route: IM, l 19:09: Drug form: [place] 00 PDR/INJ, PRN, Dosing Weight 80.909, kg, PRN Blood Glucose Results, Start date: 05/09/18 13:09:00 VENDOR REPRESENTATIVES, 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, Stop date: 06/08/18 14:08:00 CDT Dextrose No 12.5 gm, Memor ia 50% Syringe 05-09 25 mL, l 19:09: Route: [place] 00 IVP, Drug Form: INJ, Dosing Weight 80.909, kg, PRN, PRN Blood Glucose Results, Start date: 05/09/18 13:09:00 VENDOR REPRESENTATIVES, 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, Stop date: 06/08/18 14:08:00 CDT TRAMADOL 50 2018-0 Yes [id number] TAKE ONE [facility] mg tablet 3- TABLET BY [facility] o f 00:00: MOUTH FOUR 00 TIMES A [facility] DAY [facility] TRAMADOL 50 2018- Yes [id number] TAKE ONE [facility] mg tablet 3- TABLET BY [facility]y o f 00:00: MOUTH FOUR 00 TIMES A [facility] DAY [facility] TRAMADOL 50 2018-0 2020- No [id number] TAKE ONE [facility] mg tablet 05-09- TABLET BY ity of 00:00: 00:00 MOUTH FOUR 00 :00 TIMES A Medical DAY [facility] TRAMADOL 50 2018-0 2020- No [id number] TAKE ONE [facility] mg tablet 05-09- TABLET BY ity of 00:00: 00:00 MOUTH FOUR 00 :00 TIMES A Medical DAY Branch midodrine 2018-0 Yes 2.5mg Take 1 [facility] rs 2.5 mg 2-08 tablet by [facility] of tablet 00:00: mouth 2 00 (two) Medical times Branch daily. midodrine Yes 2.5mg Take 1 [facility] rs 2.5 mg 2-08 tablet by [facility] of tablet 00:00: mouth 2 [place] 00 (two) Medical times Branch daily. midodrine 2020- No 2.5mg Take 1 [facility] ers 2.5 mg 2-08 09-10 tablet by ity of tablet 00:00: 00:00 mouth 2 [place] 00 :00 (two) Medical times Branch daily. midodrine 2020- No 2.5mg Take 1 Univ ers 2.5 mg 2-08 09-10 tablet by ity of tablet 00:00: 00:00 mouth 2 [place] 00 :00 (two) Medical times Branch daily. Lasix 2017-03 No Notes: [facility] 2-29 (Same as: l 15:00: Lasix) May [place] 00 cause GI upset. Give with food or milk. Lasix 2017-03 No Notes: [facility] 2-29 (Same as: l 15:00: Lasix) May [place] 00 cause GI upset. Give with food or milk. Lasix 2017-03 No Notes: [facility] 2-29 (Same as: l 15:00: Lasix) May [place] 00 cause GI upset. Give with food or milk. Potassium 2017-03 No Notes: Memori a Chloride 2-28 (Same as: l 18:32: K-Dur 20) [place] 00 "Do Not Crush" Give with food and full glass of water For patients unable to swallow tablet, dissolve in one half glass of water. Allow about 2 minutes for the tablets to disintegra te. Stir before giving to prepare slurry and administer . Please exclude Patient s with feeding tube less than 14 [place] (Dobhoff, J-tube etc) and pediatric and patients. Potassium 2017-03 No Notes: Memori a Chloride 2-28 (Same as: l 18:32: K-Dur 20) [place] 00 "Do Not Crush" Give with food and full glass of water For patients unable to swallow tablet, dissolve in one half glass of water. Allow about 2 minutes for the tablets to disintegra te. Stir before giving to prepare slurry and administer . Please exclude Patient s with feeding tube less than 14 [place] (Dobhoff, J-tube etc) and pediatric and patients. Potassium 2017-03 No Notes: Memori a Chloride 2-28 (Same as: l 18:32: K-Dur 20) [place] 00 "Do Not Crush" Give with food and full glass of water For patients unable to swallow tablet, dissolve in one half glass of water. Allow about 2 minutes for the tablets to disintegra te. Stir before giving to prepare slurry and administer . Please exclude Patient s with feeding tube less than 14 [place] (Dobhoff, J-tube etc) and pediatric and patients. Rocephin 1 2017-03 No 2 gm, IV, Me moria g injection 2-28 Q24H, X 14 l 18:26: day, # 14 [place] 00 ea, 0 Refill(s), other Furosemide 2017-03 No 20 mg = 1 Me moria 20 MG Oral 2-28 tab, PO, l Tablet 18:26: Daily, # [place] 00 30 tab, 0 Refill(s), Pharmacy: [facility] [id number] Rocephin 1 2017-03 No 2 gm, IV, Me moria g injection 2-28 Q24H, X 14 l 18:26: day, # 14 [place] 00 ea, 0 Refill(s), other Furosemide 2017-03 No 20 mg = 1 Me moria 20 MG Oral 2-28 tab, PO, l Tablet 18:26: Daily, # [place] 00 30 tab, 0 Refill(s), Pharmacy: [facility] [id number] Rocephin 1 2017-03 No 2 gm, IV, Me moria g injection 2-28 Q24H, X 14 l 18:26: day, # 14 [place] 00 ea, 0 Refill(s), other Furosemide 2017-03 No 20 mg = 1 Me moria 20 MG Oral 2-28 tab, PO, l Tablet 18:26: Daily, # [place] 00 30 tab, 0 Refill(s), Pharmacy: [facility] [id number] Potassium 2017-03 No Notes: Memori a Chloride 2-28 (Same as: l 16:19: K-Dur 20) [place] 00 "Do Not Crush" Give with food and full glass of water For patients unable to swallow tablet, dissolve in one half glass of water. Allow about 2 minutes for the tablets to disintegra te. Stir before giving to prepare slurry and administer . Please exclude Patient s with feeding tube less than 14 [place] (Dobhoff, J-tube etc) and pediatric and patients. Potassium 2017-03 No Notes: Memori a Chloride 2-28 (Same as: l 16:19: K-Dur 20) [place] 00 "Do Not Crush" Give with food and full glass of water For patients unable to swallow tablet, dissolve in one half glass of water. Allow about 2 minutes for the tablets to disintegra te. Stir before giving to prepare slurry and administer . Please exclude Patient s with feeding tube less than 14 [place] (Dobhoff, J-tube etc) and pediatric and patients. Potassium 2017-03 No Notes: Memori a Chloride 2-28 (Same as: l 16:19: K-Dur 20) [place] 00 "Do Not Crush" Give with food and full glass of water For patients unable to swallow tablet, dissolve in one half glass of water. Allow about 2 minutes for the tablets to disintegra te. Stir before giving to prepare slurry and administer . Please exclude Patient s with feeding tube less than 14 [place] (Dobhoff, J-tube etc) and pediatric and patients. multivitami 2017-03 No Notes: Kuldeep teto n with 2-28 (Same l minerals 15:00: as:Thera-M [place] f[place]and[place] 00 , Theragran- M) WASTE: F/P - Black; E - Municipal Trash Bin Give with food. multivitami 2017-03 No Notes: Kuldeep teto n with 2-28 (Same l minerals 15:00: as:Thera-M [place] 00 , Theragran- M) WASTE: F/P - Black; E - Municipal Trash Bin Give with food. multivitami 2017-03 No Notes: Kuldeep teto n with 2-28 (Same l minerals 15:00: as:Thera-M [place] 00 , Theragran- M) WASTE: F/P - Black; E - Municipal Trash Bin Give with food. atorvastati 2017-03 No Notes: Kuldeep teto n 2-28 (Same as: l 03:00: Lipitor) [place] 00 Trazodone 2017-03 No Notes: Memori a Hydrochlori 2-28 (Same As: l de 50 MG 03:00: Desyrel) Marcia nn Oral Tablet 00 Mirtazapine 2017-03 No Notes: Kuldeep teto 2-28 (Same l 03:00: as:Remeron [place] 00 ) atorvastati 2017-03 No Notes: Kuldeep teto n 2-28 (Same as: l 03:00: Lipitor) [place] Trazodone 2017-03 No Notes: Memori a Hydrochlori 2-28 (Same As: l de 50 MG 03:00: Desyrel) Marcia nn Oral Tablet 00 Mirtazapine 2017-03 No Notes: Kuldeep teto 2-28 (Same l 03:00: as:Remeron [place] 00 ) atorvastati 2017-03 No Notes: Kuldeep teto n 2-28 (Same as: l 03:00: Lipitor) [place] Trazodone 2017-03 No Notes: Memori a Hydrochlori 2-28 (Same As: l de 50 MG 03:00: Desyrel) Marcia nn Oral Tablet 00 Mirtazapine 2017-03 No Notes: Kuldeep teto 2-28 (Same l 03:00: as:Remeron [place] ) Beneprotein 2017-03 No Notes: Kuldeep teto 7 gm pkt 2-27 (Same as: l 22:30: Beneprotei [place] 00 n) Beneprotein 2017-03 No Notes: Kuldeep teto 7 gm pkt 2-27 (Same as: l 22:30: Beneprotei [place] 00 n) Beneprotein 2017-03 No Notes: Kuldeep teto 7 gm pkt 2-27 (Same as: l 22:30: Beneprotei [place] 00 n) Ceftriaxone 2017-03 No Notes: Kuldeep teto 2-27 (Same As: l 19:00: Rocephin). Use with 100 mL NS and infuse over 30 min MEDICATION WASTE Product Size: 2000 mg Product Wasted: ___ mg Ceftriaxone 2017-03 No Notes: Kuldeep teto 2-27 (Same As: l 19:00: Rocephin). [place] 00 Use with 100 mL NS and infuse over 30 min MEDICATION WASTE Product Size: 2000 mg Product Wasted: ___ mg Ceftriaxone 2017-03 No Notes: Kuldeep teto 2-27 (Same As: l 19:00: Rocephin). Use with 100 mL NS and infuse over 30 min MEDICATION WASTE Product Size: 2000 mg Product Wasted: ___ mg ferrous 2017-03 No Notes: Memoria sulfate 2-27 Give with l 15:24: food. iron [place] 00 elemental [id number] as ferrous sulfate Dose=___mg elemental iron duloxetine 2017-03 No Notes: Memor ia 2-27 (Same as: l 15:24: Cymbalta) [place] (Do Not Crush) clopidogrel 2017-03 No Notes: Kuldeep teto 2-27 (Same As: l 15:24: Plavix) [place] Buspirone 2017-03 No Notes: Memori a 2-27 (Same As: l 15:24: BuSpar) [place] Vancomycin 2017-03 No 2001 mg: Me moria 2-27 infuse l 15:24: over 2.5 [place] 00 hours metoprolol 2017-03 No Notes: Memor ia extended 2-27 (Same as: l release 15:24: Toprol XL) Herm ladi Do Not Crush Lisinopril 2017-03 No Notes: Memor ia 2-27 (Same as: l 15:24: Prinivil, [place] 00 Zestril) ferrous 2017-03 No Notes: Memoria sulfate 2-27 Give with l 15:24: food. iron [place] 00 elemental [id number] as ferrous sulfate Dose=___mg elemental iron duloxetine 2017-03 No Notes: Memor ia 2-27 (Same as: l 15:24: Cymbalta) [place] (Do Not Crush) clopidogrel 2017-03 No Notes: Kuldeep teto 2-27 (Same As: l 15:24: Plavix) [place] Buspirone 2017-03 No Notes: Memori a 2-27 (Same As: l 15:24: BuSpar) [place] Vancomycin 2017-03 No 2001 mg: Me moria 2-27 infuse l 15:24: over 2.5 [place] 00 hours metoprolol 2017-03 No Notes: Memor ia extended 2-27 (Same as: l release 15:24: Toprol XL) Herm ladi 00 Do Not Crush Lisinopril 2017-03 No Notes: Memor ia 2-27 (Same as: l 15:24: Prinivil, [place] 00 Zestril) ferrous 2017-03 No Notes: Memoria sulfate 2-27 Give with l 15:24: food. iron elemental [id number] as ferrous sulfate Dose=___mg elemental iron duloxetine 2017-03 No Notes: Memor ia 2-27 (Same as: l 15:24: Cymbalta) [place] 00 (Do Not Crush) clopidogrel 2017-03 No Notes: Kuldeep teto 2-27 (Same As: l 15:24: Plavix) [place] 00 Buspirone 2017-03 No Notes: Memori a 2-27 (Same As: l 15:24: BuSpar) Vancomycin 2017-03 No 2001 mg: Me moria 2-27 infuse l 15:24: over 2.5 [place] 00 hours metoprolol 2017-03 No Notes: Memor ia extended 2- (Same as: l release 15:24: Toprol XL) Do Not Crush Lisinopril 2017-03 No Notes: Memor ia 2-27 (Same as: l 15:24: Prinivil, [place] Zestril) Enoxaparin 2017-03 No Notes: Memor ia 2-27 (Same as: l 15:00: Lovenox) [place] 00 Saline 2017-03 No Notes: [facility] Flush 0.9% 2-27 (Same as: l 15:00: BD [place] 00 Posiflush) Furosemide 2017-03 No Notes: Memor ia 2-27 (Same as: l 15:00: Lasix) [place] MEDICATION WASTE Product Size: 40 mg Product Wasted: ___ mg Enoxaparin 2017-03 No Notes: Memor ia 2-27 (Same as: l 15:00: Lovenox) [place] 00 Saline 2017-03 No Notes: [facility] Flush 0.9% 2-27 (Same as: l 15:00: BD [place] Posiflush) Furosemide 2017-03 No Notes: Memor ia 2-27 (Same as: l 15:00: Lasix) [place] 00 MEDICATION WASTE Product Size: 40 mg Product Wasted: ___ mg Enoxaparin 2017-03 No Notes: Memor ia 2-27 (Same as: l 15:00: Lovenox) [place] Saline 2017-03 No Notes: [facility] Flush 0.9% 2-27 (Same as: l 15:00: BD [place] 00 Posiflush) Furosemide 2017-03 No Notes: Memor ia 2-27 (Same as: l 15:00: Lasix) MEDICATION WASTE Product Size: 40 mg Product Wasted: ___ mg Dexamethaso 2017-03 No Notes: Kuldeep teto ne 2-27 Concentrat l 09:59: ion: [place] 00 4mg/ml Dexamethaso 2017-03 No Notes: Kuldeep teto ne 2-27 Concentrat l 09:59: ion: [place] 00 4mg/ml Dexamethaso 2017-03 No Notes: Kuldeep teto ne 2-27 Concentrat l 09:59: ion: [place] 00 4mg/ml Benadryl 2017-03 No Notes: Memoria 2-27 (Same as: l 08:25: Benadryl) [place] 00 Benadryl 2017-03 No Notes: [facility] 2-27 (Same as: l 08:25: Benadryl) [place] 00 Benadryl 2017-03 No Notes: Memoria 2-27 (Same as: l 08:25: Benadryl) [place] 00 Saline 2017-03 No Notes: [facility] Flush 0.9% 2-27 (Same as: l 08:24: BD [place] 00 Posiflush) Saline 2017-03 No Notes: [facility] Flush 0.9% 2-27 (Same as: l 08:24: BD [place] 00 Posiflush) Saline 2017-03 No Notes: Mem[facility] Flush 0.9% 2-27 (Same as: l 08:24: BD [place] 00 Posiflush) Benadryl 2017-03 No Notes: Memoria 2-27 (Same as: l 06:45: Benadryl) Dexamethaso 2017-03 No 12 mg, 3 Me moria ne 2-27 mL, Route: l 06:45: IVP, Drug form: INJ, ONCE, Dosing Weight 83.182, kg, Priority: STAT, Start date: 02/28/18 0:45:00 VENDOR REPRESENTATIVES, 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/28/18 0:45:00 VENDOR REPRESENTATIVES Benadryl 2017-03 No Notes: [facility] 2-27 (Same as: l 06:45: Benadryl) [place] Dexamethaso 2017-03 No 12 mg, 3 Me moria ne 2-27 mL, Route: l 06:45: IVP, Drug [place] 00 form: INJ, ONCE, Dosing Weight 83.182, kg, Priority: STAT, Start date: 02/28/18 0:45:00 VENDOR REPRESENTATIVES, 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/28/18 0:45:00 VENDOR REPRESENTATIVES Benadryl 2017-03 No Notes: Mem[facility] 2-27 (Same as: l 06:45: Benadryl) [place] Dexamethaso 2017-03 No 12 mg, 3 Me moria ne 2-27 mL, Route: l 06:45: IVP, Drug [place] 00 form: INJ, ONCE, Dosing Weight 83.182, kg, Priority: STAT, Start date: 02/28/18 0:45:00 VENDOR REPRESENTATIVES, 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/28/18 0:45:00 VENDOR REPRESENTATIVES tramadol 2017-03 No 50 mg = 1 Kuldeep teto hydrochlori 2-20 tab, PO, l de 50 MG 18:02: Q8H, PRN Marcia nn Oral Tablet 00 Pain, X 3 day, # 7 tab, 0 Refill(s) tramadol 2017-03 No 50 mg = 1 Kuldeep teto hydrochlori 2-20 tab, PO, l de 50 MG 18:02: Q8H, PRN [place]cia nn Oral Tablet 00 Pain, X 3 day, # 7 tab, 0 Refill(s) tramadol 2017-03 No 50 mg = 1 Kuldeep teto hydrochlori 2-20 tab, PO, l de 50 MG 18:02: Q8H, PRN [place]cia nn Oral Tablet 00 Pain, X 3 day, # 7 tab, 0 Refill(s) vancomycin 2017-03 No 1.25 gm = Me moria 1.25 g/250 2-20 250 mL, l mL-NaCl 17:58: IVPB, [place] 0.9% 00 Q12H, 0 intravenous Refill(s) solution [...] Daily, 0 Arsenio n Tablet 00 Refill(s) vancomycin 2017-03 No 1.25 gm = Me moria 1.25 g/250 2-20 250 mL, l mL-NaCl 17:58: IVPB, [place] 0.9% 00 Q12H, 0 intravenous Refill(s) solution Mirtazapine 2017-03 No 15 mg = 1 M emoria 15 MG Oral 2-20 tab, PO, l Tablet 17:58: Bedtime, 0 Marcia nn 00 Refill(s) lisinopril 2017-03 No 5 mg = 1 Mem oria 5 mg oral 2-20 tab, PO, l tablet 17:58: Daily, 0 [place] 00 Refill(s) ferrous 2017-03 No 325 mg = 1 Kuldeep teto sulfate 325 2-20 tab, PO, l MG Oral 17:58: Daily, 0 Arsenio n Tablet 00 Refill(s) vancomycin 2017-03 No 1.25 gm = Me moria 1.25 g/250 2-20 250 mL, l mL-NaCl 17:58: IVPB, [place] 0.9% 00 Q12H, 0 intravenous Refill(s) solution [...] l 03:00: over 2.5 [place] 00 hours Vancomycin 2017-03 No 2000 mg: Me moria 2-20 infuse l 03:00: over 2.5 [place] 00 hours Vancomycin 2017- No 2001 mg: Me moria 2-20 infuse l 03:00: over 2.5 [place] 00 hours Fleet Enema 2017-03 No 12 years, Memoria 2-19 Pediatric l 17:47: Dosing [place] 00 Fleet Enema 2017- No 12 years, Memoria 2-19 Pediatric l 17:47: Dosing [place] 00 Fleet Enema 2017- No 12 years, Memoria 2-19 Pediatric l 17:47: Dosing [place] 00 Lisinopril 2017-03 No Notes: Memor ia 2-19 (Same as: l 15:18: Prinivil, [place] 00 Zestril) Lisinopril 2017-03 No Notes: Memor ia 2-19 (Same as: l 15:18: Prinivil, [place] 00 Zestril) Lisinopril 2017-03 No Notes: Memor ia 2-19 (Same as: l 15:18: Prinivil, [place] 00 Zestril) Sodium 2017-03 No 25 mL, [facility] Chloride 2-18 Route: IV, l 0.9% IV 14:04: Start date: 02/19/18 8:04:00 [employer], 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, Stop date: 03/21/18 8:03:00 [employer], PRN Line Flush BD Normal 2017-03 No Notes: [facility]ori a Saline 2-18 (Same as: l Flush 14:04: BD [place] Posiflush) Sodium 2017-03 No 25 mL, [facility] Chloride 2-18 Route: IV, l 0.9% IV 14:04: Start date: 02/19/18 8:04:00 [employer], 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, Stop date: 03/21/18 8:03:00 [employer], PRN Line Flush BD Normal 2017-03 No Notes: [facility] a Saline 2-18 (Same as: l Flush 14:04: BD [place] 00 Posiflush) Sodium 2017-03 No 25 mL, [facility] Chloride 2-18 Route: IV, l 0.9% IV 14:04: Start date: 02/19/18 8:04:00 [employer], 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, Stop date: 03/21/18 8:03:00 [employer], PRN Line Flush BD Normal 2017-03 No Notes: [facility]ori a Saline -18 (Same as: l Flush 14:04: BD [place] 00 Posiflush) Zinc 2017-03 No Notes: [facility] Sulfate 2-17 (Zinc l 19:30: sulfate [place] 00 capsule) - 220 mg Zinc sulfate = 50 mg elemental zinc Same as Zinc Sulfate Zinc 2017-03 No Notes: [facility] Sulfate 2-17 (Zinc l 19:30: sulfate [place] 00 capsule) - 220 mg Zinc sulfate = 50 mg elemental zinc Same as Zinc Sulfate Zinc 2017-03 No Notes: [facility] Sulfate 2-17 (Zinc l 19:30: sulfate [place] 00 capsule) - 220 mg Zinc sulfate = 50 mg elemental zinc Same as Zinc Sulfate Beneprotein 2017-03 No Notes: Kuldeep teto 7 gm pkt 2-17 (Same as: l 18:38: Beneprotei [place] 00 n) Beneprotein 2017-03 No Notes: Kuldeep teto 7 gm pkt 2-17 (Same as: l 18:38: Beneprotei [place] 00 n) Beneprotein 2017-03 No Notes: Kuldeep teto 7 gm pkt 2-17 (Same as: l 18:38: Beneprotei [place] 00 n) ferrous 2017-03 No Notes: Memoria sulfate 2-17 Give with l 16:37: food. iron [place] 00 elemental 28mg=255qh as ferrous sulfate Dose=___mg elemental iron ferrous 2017-03 No Notes: Memoria sulfate 2-17 Give with l 16:37: food. iron [place] 00 elemental [id number]=[id number] as ferrous sulfate Dose=___mg elemental iron ferrous 2017-03 No Notes: Memoria sulfate 2-17 Give with l 16:37: food. iron [place] 00 elemental [id number]=[id number] as ferrous sulfate Dose=___mg elemental iron Docusate 2017-03 No Notes: Memoria Sodium 100 2-17 (Same as: l MG Oral 03:00: Colace) [place] Capsule 00 (Do Not Crush) Docusate 2017-03 No Notes: Memoria Sodium 100 2-17 (Same as: l MG Oral 03:00: Colace) [place] Capsule 00 (Do Not Crush) Docusate 2017-03 No Notes: Memoria Sodium 100 2-17 (Same as: l MG Oral 03:00: Colace) [place] Capsule 00 (Do Not Crush) Miralax 2017-03 No Notes: Memoria 2-16 Dissolve l 15:49: in 8 oz of [place] 00 water or juice. (Same as: Miralax) Miralax 2017-03 No Notes: Memoria 2-16 Dissolve l 15:49: in 8 oz of [place] 00 water or juice. (Same as: Miralax) Miralax 2017-03 No Notes: Memoria 2-16 Dissolve l 15:49: in 8 oz of [place] 00 water or juice. (Same as: Miralax) Vancomycin 2017-03 No 2000 mg: Me moria 2-15 infuse l 21:00: over 2.5 [place] 00 hours Vancomycin 2017-03 No 2000 mg: Me moria 2-15 infuse l 21:00: over 2.5 [place] 00 hours Vancomycin 2017-03 No 2000 mg: Me moria 2-15 infuse l 21:00: over 2.5 [place] 00 hours Saline 2017-03 No Notes: Memoria Flush 0.9% 2-14 (Same as: l 22:00: BD [place] 00 Posiflush) Saline 2017-03 No Notes: Memoria Flush 0.9% 2-14 (Same as: l 22:00: BD [place] 00 Posiflush) Saline 2017-03 No Notes: Memoria Flush 0.9% 2-14 (Same as: l 22:00: BD [place] 00 Posiflush) Saline 2017-03 No Notes: Memoria Flush 0.9% 2-14 (Same as: l 17:44: BD [place] 00 Posiflush) Saline 2017-03 No Notes: Memoria Flush 0.9% 2-14 (Same as: l 17:44: BD [place] 00 Posiflush) Saline 2017-03 No Notes: Memoria Flush 0.9% 2-14 (Same as: l 17:44: BD [place] 00 Posiflush) morphine 2017-03 No Notes: Memoria Sulfate 2-14 (Same l 15:35: as:MORPhin [place] 00 e Sulfate) morphine 2017-03 No Notes: Memoria Sulfate 2-14 (Same l 15:35: as:MORPhin [place] 00 e Sulfate) morphine 2017-03 No Notes: Memoria Sulfate 2-14 (Same l 15:35: as:MORPhin [place] 00 e Sulfate) Docusate 2017-03 No Notes: Memoria Sodium 100 2-14 (Same as: l MG Oral 15:00: Colace) [place] Capsule 00 (Do Not Crush) Enoxaparin 2017-03 No Notes: Memor ia 2-14 (Same as: l 15:00: Lovenox) [place] 00 Docusate 2017-03 No Notes: Memoria Sodium 100 2-14 (Same as: l MG Oral 15:00: Colace) [place] Capsule 00 (Do Not Crush) Enoxaparin 2017-03 No Notes: Memor ia 2-14 (Same as: l 15:00: Lovenox) [place] 00 Docusate 2017-03 No Notes: Memoria Sodium 100 2-14 (Same as: l MG Oral 15:00: Colace) [place] Capsule 00 (Do Not Crush) Enoxaparin 2017-03 No Notes: Memor ia 2-14 (Same as: l 15:00: Lovenox) [place] 00 morphine 2017-03 No Notes: Memoria 0.5 mg/mL 2-14 (Same l preservativ 13:38: as:MORPhin [place] e-free 00 e Sulfate) injectable solution morphine 2017-03 No Notes: Memoria 0.5 mg/mL 2-14 (Same l preservativ 13:38: as:MORPhin [place] e-free 00 e Sulfate) injectable solution morphine 2017-03 No Notes: Memoria 0.5 mg/mL 2-14 (Same l preservativ 13:38: as:MORPhin [place] e-free 00 e Sulfate) injectable solution Mirtazapine 2017-03 No Notes: Kuldeep teto 2-14 (Same l 03:00: as:Remeron [place] 00 ) Mirtazapine 2017-03 No Notes: Kuldeep teto 2-14 (Same l 03:00: as:Remeron [place] 00 ) Mirtazapine 2017-03 No Notes: Kuldeep teto 2-14 (Same l 03:00: as:Remeron [place] 00 ) Saline 2017-03 No Notes: Memoria Flush 0.9% 2-13 (Same as: l 23:46: BD [place] 00 Posiflush) Sodium 2017-03 No 1,000 mL, Memori a Chloride 2-13 Rate: 100 l 0.45% IV 23:46: ml/hr, [place] 1,000 mL 00 Infuse over: 10 hr, Route: IV, Dosing Weight 85 kg, Total Volume: 1,000, Start date: 02/14/18 17:46:00 [employer]PRES[employer], 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, Stop date: 03/16/18 17:45:00 VEND[employer] REPRESENTATIVES, 2.1, m2 Dulcolax 2017-03 No Notes: [facility] Laxative 2-13 (Same As: l 23:46: Dulcolax, [place] 00 Correctol) (Do Not Crush) "Do Not Crush" Ondansetron 2017-03 No Notes: Kuldeep teto 2-13 (Same as: l 23:46: Zofran [place] 00 ODT) Diphenhydra 2017-03 No Notes: Kuldeep teto mine 2-13 (Same as: l 23:46: Benadryl) [place] 00 Acetaminoph 2017-03 No Notes: Max Memoria en 2-13 acetaminop l 23:46: hen = 4000 [place] 00 mg/day (4 gm/day). (Same as: Tylenol) Acetaminoph 2017-03 No Notes: Kuldeep teto en 325 MG / 2-13 (Same as: l Hydrocodone 23:46: [place]cia nn Bitartrate 00 325/5) Do 5 MG Oral not exceed Tablet 4gm/day of acetaminop hen. Saline 2017-03 No Notes: Memoria Flush 0.9% 2-13 (Same as: l 23:46: BD [place] 00 Posiflush) Sodium 2017-03 No 1,000 mL, Memori a Chloride 2-13 Rate: 100 l 0.45% IV 23:46: ml/hr, [place] 1,000 mL 00 Infuse over: 10 hr, Route: IV, Dosing Weight 85 kg, Total Volume: 1,000, Start date: 02/14/18 17:46:00 [employer]PRES[employer], 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, Stop date: 03/16/18 17:45:00 VEND[employer] REPRESENTATIVES, 2.1, m2 Dulcolax 2017-03 No Notes: [facility] Laxative 2-13 (Same As: l 23:46: Dulcolax, [place] 00 Correctol) (Do Not Crush) "Do Not Crush" Ondansetron 2017-03 No Notes: Kuldeep teto 2-13 (Same as: l 23:46: Zofran [place] 00 ODT) Diphenhydra 2017-03 No Notes: Kuldeep teto mine 2-13 (Same as: l 23:46: Benadryl) [place] 00 Acetaminoph 2017-03 No Notes: Max Memoria en 2-13 acetaminop l 23:46: hen = 4000 [place] 00 mg/day (4 gm/day). (Same as: Tylenol) Acetaminoph 2017-03 No Notes: Kuldeep teto en 325 MG / 2-13 (Same as: l Hydrocodone 23:46: [place]cia nn Bitartrate 00 325/5) Do 5 MG Oral not exceed Tablet 4gm/day of acetaminop hen. Saline 2017-03 No Notes: Memoria Flush 0.9% 2-13 (Same as: l 23:46: BD [place] 00 Posiflush) Sodium 2017-03 No 1,000 mL, Memori a Chloride 2-13 Rate: 100 l 0.45% IV 23:46: ml/hr, [place] 1,000 mL 00 Infuse over: 10 hr, Route: IV, Dosing Weight 85 kg, Total Volume: 1,000, Start date: 02/14/18 17:46:00 [employer] REPRESENT[employer]ES, 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, Stop date: 03/16/18 17:45:00 VENDOR REPRESENTATIVES, 2.1, m2 Dulcolax 2017-03 No Notes: [facility] Laxative 2-13 (Same As: l 23:46: Dulcolax, [place] 00 Correctol) (Do Not Crush) "Do Not Crush" Ondansetron 2017-03 No Notes: Kuldeep teto 2-13 (Same as: l 23:46: Zofran [place] 00 ODT) Diphenhydra 2017-03 No Notes: Kuldeep teto mine 2-13 (Same as: l 23:46: Benadryl) [place] 00 Acetaminoph 2017-03 No Notes: Max Memoria en 2-13 acetaminop l 23:46: hen = 4000 [place] 00 mg/day (4 gm/day). (Same as: Tylenol) Acetaminoph 2017-03 No Notes: Kuldeep teto en 325 MG / 2-13 (Same as: l Hydrocodone 23:46: [place]cia nn Bitartrate 00 325/5) Do 5 MG Oral not exceed Tablet 4gm/day of acetaminop hen. sugammadex 2017-03 No Route: IV, M emoria (ANES) 2-13 Drug form: l 22:11: SOLN, [place] 00 ONCE, 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/14/18 16:11:00 [employer]PRESENT[employer]ES sugammadex 2017-03 No Route: IV, M emoria (ANES) 2-13 Drug form: l 22:11: SOLN, [place] ONCE, 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/14/18 16:11:00 [employer]PRESENT[employer]ES sugammadex 2017-03 No Route: IV, M emoria (ANES) 2-13 Drug form: l 22:11: SOLN, [place] ONCE, 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/14/18 16:11:00 [employer] REPRESENT[employer]ES ePHEDrine 2017-03 No Route: IV, Me moria (ANES) 2-13 Drug form: l 22:07: INJ, ONCE, [place] 00 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/14/18 16:07:00 V[employer] REPRESENTATIVES ePHEDrine 2017-03 No Route: IV, Me moria (ANES) 2-13 Drug form: l 22:07: INJ, ONCE, [place] 00 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/14/18 16:07:00 V[employer]OR REPRESENTATIVES ePHEDrine 2017-03 No Route: IV, Me moria (ANES) 2-13 Drug form: l 22:07: INJ, ONCE, [place] 00 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/14/18 16:07:00 V[employer] REPRESENT[employer]IVES succinylcho 2017-03 No Route: IV, Memoria line (ANES) 2-13 Drug form: l 22:02: INJ, ONCE, [place] 00 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/14/18 16:02:00 [employer]PRES[employer]ES phenylephri 2017-03 No Route: IV, Memoria ne (ANES) 2-13 Drug form: l 22:02: INJ, ONCE, [place] 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/14/18 16:02:00 [employer] REPRESENT[employer]IVES dexamethaso 2017-03 No Route: IV, Memoria ne (ANES) 2-13 Drug form: l 22:02: INJ, ONCE, 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/14/18 16:02:00 V[employer] REPRESENT[employer]IVES ondansetron 2018 No Route: IV, Memoria (ANES) 2-13 Drug form: l 22:02: INJ, ONCE, 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/14/18 16:02:00 V[employer]OR REPRESENTATIVES succinylcho 2017-03 No Route: IV, Memoria line (ANES) 2-13 Drug form: l 22:02: INJ, ONCE, 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/14/18 16:02:00 [employer] REPRESENT[employer]IVES phenylephri 2017-03 No Route: IV, Memoria ne (ANES) 2-13 Drug form: l 22:02: INJ, ONCE, 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/14/18 16:02:00 V[employer] REPRESENTATIVES dexamethaso 2017-03 No Route: IV, Memoria ne (ANES) 2-13 Drug form: l 22:02: INJ, ONCE, 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/14/18 16:02:00 V[employer]OR REPRESENT[employer]IVES ondansetron 2017-03 No Route: IV, Memoria (ANES) 2-13 Drug form: l 22:02: INJ, ONCE, 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/14/18 16:02:00 V[employer]OR REPRESENTATIVES succinylcho 2017-03 No Route: IV, Memoria line (ANES) 2-13 Drug form: l 22:02: INJ, ONCE, 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/14/18 16:02:00 V[employer]OR REPRESENTATIVES phenylephri 2017-03 No Route: IV, Memoria ne (ANES) 2-13 Drug form: l 22:02: INJ, ONCE, 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/14/18 16:02:00 V[employer]OR REPRESENTATIVES dexamethaso 2017-03 No Route: IV, Memoria ne (ANES) 2-13 Drug form: l 22:02: INJ, ONCE, 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/14/18 16:02:00 V[employer]OR REPRESENTATIVES ondansetron 2017-03 No Route: IV, Memoria (ANES) 2-13 Drug form: l 22:02: INJ, ONCE, 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/14/18 16:02:00 VENDOR REPRESENTATIVES fentaNYL 2018- No Route: IV, Mem oria (ANES) 2-13 Drug form: l 21:57: INJ, ONCE, [place] 00 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/14/18 15:57:00 [employer]PRESENT[employer]IVES lidocaine 2017-03 No Route: IV, Me moria (ANES) 2-13 Drug form: l 21:57: INJ, ONCE, [place] 00 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/14/18 15:57:00 V[employer]OR REPRESENT[employer]IVES propofol 2017-03 No Route: IV, Mem oria (ANES) 2-13 Drug form: l 21:57: INJ, ONCE, 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/14/18 15:57:00 [employer] REPRESENTATIVES rocuronium 2017-03 No Route: IV, M emoria (ANES) 2-13 Drug form: l 21:57: INJ, ONCE, 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/14/18 15:57:00 [employer] REPRESENT[employer]IVES midazolam 2017-03 No Route: IV, Me moria (ANES) 2-13 Drug form: l 21:57: SOLN, ONCE, 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/14/18 15:57:00 VENDOR REPRESENTATIVES fentaNYL 2017-03 No Route: IV, Mem oria (ANES) 2-13 Drug form: l 21:57: INJ, ONCE, 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/14/18 15:57:00 V[employer] REPRESENTATIVES lidocaine 2017-03 No Route: IV, Me moria (ANES) 2-13 Drug form: l 21:57: INJ, ONCE, 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/14/18 15:57:00 V[employer]OR REPRESENTATIVES propofol 2017-03 No Route: IV, Mem oria (ANES) 2-13 Drug form: l 21:57: INJ, ONCE, 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/14/18 15:57:00 V[employer]OR REPRESENTATIVES rocuronium 2017-03 No Route: IV, M emoria (ANES) 2-13 Drug form: l 21:57: INJ, ONCE, 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/14/18 15:57:00 VENDOR REPRESENTATIVES midazolam 2017-03 No Route: IV, Me moria (ANES) 2-13 Drug form: l 21:57: SOLN, [place] 00 ONCE, 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/14/18 15:57:00 VENDOR REPRESENTATIVES fentaNYL 2017-03 No Route: IV, Mem oria (ANES) 2-13 Drug form: l 21:57: INJ, ONCE, [place] 00 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/14/18 15:57:00 VENDOR REPRESENTATIVES lidocaine 2017-03 No Route: IV, Me moria (ANES) 2-13 Drug form: l 21:57: INJ, ONCE, [place] 00 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/14/18 15:57:00 VENDOR REPRESENTATIVES propofol 2017-03 No Route: IV, Mem oria (ANES) 2-13 Drug form: l 21:57: INJ, ONCE, [place] 00 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/14/18 15:57:00 VENDOR REPRESENTATIVES rocuronium 2017-03 No Route: IV, M emoria (ANES) 2-13 Drug form: l 21:57: INJ, ONCE, [place] 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/14/18 15:57:00 V[employer]OR REPRESENTATIVES midazolam 2017-03 No Route: IV, Me moria (ANES) 2-13 Drug form: l 21:57: SOLN, [place] 00 ONCE, 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/14/18 15:57:00 [employer]OR REPRESENTATIVES Promethazin 2017-03 No Notes: Do M emoria e 2-13 not give l 21:47: IV push. [place] 00 (Same as: Phenergan) Ondansetron 2017-03 No Notes: Kuldeep teto 2-13 (Same as: l 21:47: Zofran) [place] 00 MEDICATION WASTE Product Size: 4 mg Product Wasted: ___ mg Metoprolol 2017-03 No Notes: Memor ia 2-13 (Same as: l 21:47: Lopressor) [place] 00 Push over 2 minutes Ketorolac 2017-03 No 4 days Memor ia 2-13 l 21:47: MEDICATION [place] 00 WASTE Product Size: 30 mg Product Wasted: ___ mg Labetalol 2017-03 No Notes: Memori a 2-13 (Same as: l 21:47: Normodyne, [place] 00 Trandate) Push over 2 minutes Give bolus over 2-3 minutes. Sodium 2018 No 500 mL, Memoria Chloride 2-13 1500 l 0.9% 21:47: ml/hr, [place] (Bolus) IV 00 Infuse Over: 20 minutes, Route: IV, 500, Drug form: INJ, ONCE, Dosing Weight 85 kg, Start date: 02/14/18 15:47:00 [employer] REPRESENT[employer]IVES, 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/14/18 15:47:00 V[employer]OR REPRESENTATIVES Naloxone 2017-03 No Notes: Memoria 2-13 Same as l 21:47: Narcan [place] Flumazenil 2017-03 No Notes: Memor ia 2-13 (Same as: l 21:47: Romazicon) [place] 00 Morphine 2017-03 No Notes: Memoria 2-13 (Same l 21:47: as:MORPhin [place] 00 e Sulfate) Hydromorpho 2017-03 No Notes: Kuldeep teto ne 2-13 Same as l 21:47: Dilaudid [place] 00 Promethazin 2017-03 No Notes: Do M emoria e 2-13 not give l 21:47: IV push. [place] 00 (Same as: Phenergan) Ondansetron 2017-03 No Notes: Kuldeep teto 2-13 (Same as: l 21:47: Zofran) [place] 00 MEDICATION WASTE Product Size: 4 mg Product Wasted: ___ mg Metoprolol 2017-03 No Notes: Memor ia 2-13 (Same as: l 21:47: Lopressor) [place] 00 Push over 2 minutes Ketorolac 2017-03 No 4 days Memor ia 2-13 l 21:47: MEDICATION [place] 00 WASTE Product Size: 30 mg Product Wasted: ___ mg Labetalol 2017-03 No Notes: Memori a 2-13 (Same as: l 21:47: Normodyne, [place] 00 Trandate) Push over 2 minutes Give bolus over 2-3 minutes. Sodium 2017-03 No 500 mL, [facility] Chloride 2-13 1500 l 0.9% 21:47: ml/hr, [place] (Bolus) IV 00 Infuse Over: 20 minutes, Route: IV, 500, Drug form: INJ, ONCE, Dosing Weight 85 kg, Start date: 02/14/18 15:47:00 [employer] REPRESENTATIVES, 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/14/18 15:47:00 VENDOR REPRESENTATIVES Naloxone 2017-03 No Notes: Memoria 2-13 Same as l 21:47: Narcan [place] Flumazenil 2017-03 No Notes: Memor ia 2-13 (Same as: l 21:47: Romazicon) [place] 00 Morphine 2017-03 No Notes: Memoria 2-13 (Same l 21:47: as:MORPhin [place] 00 e Sulfate) Hydromorpho 2017-03 No Notes: Kuldeep teto ne 2-13 Same as l 21:47: Dilaudid [place] 00 Promethazin 2017-03 No Notes: Do M emoria e 2-13 not give l 21:47: IV push. [place] 00 (Same as: Phenergan) Ondansetron 2017-03 No Notes: Kuldeep teto 2-13 (Same as: l 21:47: Zofran) [place] 00 MEDICATION WASTE Product Size: 4 mg Product Wasted: ___ mg Metoprolol 2017-03 No Notes: Memor ia 2-13 (Same as: l 21:47: Lopressor) [place] 00 Push over 2 minutes Ketorolac 2017-03 No 4 days Memor ia 2-13 l 21:47: MEDICATION [place] WASTE Product Size: 30 mg Product Wasted: ___ mg Labetalol 2017-03 No Notes: Memori a 2-13 (Same as: l 21:47: Normodyne, [place] 00 Trandate) Push over 2 minutes Give bolus over 2-3 minutes. Sodium 2017-03 No 500 mL, [facility] Chloride 2-13 1500 l 0.9% 21:47: ml/hr, [place] (Bolus) IV 00 Infuse Over: 20 minutes, Route: IV, 500, Drug form: INJ, ONCE, Dosing Weight 85 kg, Start date: 02/14/18 15:47:00 [employer] REPRESENTATIVES, 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/14/18 15:47:00 VENDOR REPRESENTATIVES Naloxone 2017-03 No Notes: Memoria 2-13 Same as l 21:47: Narcan [place] 00 Flumazenil 2017-03 No Notes: Memor ia 2-13 (Same as: l 21:47: Romazicon) [place] 00 Morphine 2017-03 No Notes: Memoria 2-13 (Same l 21:47: as:MORPhin [place] 00 e Sulfate) Hydromorpho 2017-03 No Notes: Kuldeep teto ne 2-13 Same as l 21:47: Dilaudid [place] 00 vancomycin 2017-03 No Route: IV, M emoria (ANES) 1000 2-13 Drug form: l mg 21:45: INJ, Start date: 02/14/18 15:45:00 [employer] REPRESENTATIVES, 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/14/18 16:45:00 V[employer]OR REPRESENTATIVES vancomycin 2017-03 No Route: IV, [place] emoria (ANES) 1000 2 Drug form: l mg 21:45: INJ, Start date: 02/14/18 15:45:00 V[employer] REPRESENTATIVES, 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/14/18 16:45:00 VENDOR REPRESENTATIVES vancomycin 2017-03 No Route: IV, [place] freitasria (ANES) 1000 04-17 Drug form: l mg 21:45: INJ, Start date: 02/14/18 15:45:00 V[employer] REPRESENTATIVES, 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/14/18 16:45:00 VENDOR REPRESENTATIVES Sodium 2017-03 No Route: IV, Memor ia Chloride 2-13 Total l 0.9% IV 21:08: Volume: [place] (ANES) 1000 00 1,000, mL Start date: 02/14/18 15:08:00 V[employer] REPRESENTATIVES, 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/14/18 16:08:00 VENDOR REPRESENTATIVES Sodium 2017-03 No Route: IV, Memor ia Chloride 2-13 Total l 0.9% IV 21:08: Volume: [place] (ANES) 1000 00 1,000, mL Start date: 02/14/18 15:08:00 V[employer]OR REPRESENTATIVES, 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/14/18 16:08:00 VENDOR REPRESENTATIVES Sodium 2017-03 No Route: IV, Memor ia Chloride 2-13 Total l 0.9% IV 21:08: Volume: [place] (ANES) 1000 00 1,000, mL Start date: 02/14/18 15:08:00 V[employer]OR REPRESENTATIVES, 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/14/18 16:08:00 VENDOR REPRESENTATIVES Ativan 2017-03 No Notes: Memoria 2-13 (Same as: l 18:24: Ativan) [place] Ativan 2017-03 No Notes: Memoria 2-13 (Same as: l 18:24: Ativan) [place] 00 Ativan 2017-03 No Notes: Memoria 2-13 (Same as: l 18:24: Ativan) [place] 00 Thiamine 2017-03 No Notes: Memoria 2-13 (Same As: l 16:00: Vitamin [place] 00 B1) multivitami 2017-03 No Notes: Kuldeep teto n with 2-13 (Same l minerals 16:00: as:Thera-M [place] f[place]and[place] 00 , Theragran- M) WASTE: F/P - Black; E - Municipal Trash Bin Give with food. Thiamine 2017-03 No Notes: Memoria 2-13 (Same As: l 16:00: Vitamin [place] 00 B1) multivitami 2017-03 No Notes: Kuldeep teto n with 2-13 (Same l minerals 16:00: as:Thera-M [place] 00 , Theragran- M) WASTE: F/P - Black; E - Municipal Trash Bin Give with food. Thiamine 2017-03 No Notes: Memoria 2-13 (Same As: l 16:00: Vitamin [place] 00 B1) multivitami 2017-03 No Notes: Kuldeep teto n with 2-13 (Same l minerals 16:00: as:Thera-M [place] 00 , Theragran- M) WASTE: F/P - Black; E - Municipal Trash Bin Give with food. 24 HR 2017-03 No Notes: Memoria Metoprolol 2-13 (Same as: l Tartrate 25 15:00: Toprol XL) [place] MG Extended 00 Do Not Release Crush Tablet [Toprol] duloxetine 2017-03 No Notes: Memor ia 2-13 (Same as: l 15:00: Cymbalta) [place] 00 (Do Not Crush) Plavix 2017-03 No Notes: Memoria 2-13 (Same As: l 15:00: Plavix) [place] 00 24 HR 2017-03 No Notes: Memoria Metoprolol 2-13 (Same as: l Tartrate 25 15:00: Toprol XL) [place] MG Extended 00 Do Not Release Crush Tablet [Toprol] duloxetine 2017-03 No Notes: Memor ia 2-13 (Same as: l 15:00: Cymbalta) [place] 00 (Do Not Crush) Plavix 2017-03 No Notes: Memoria 2-13 (Same As: l 15:00: Plavix) [place] 00 24 HR 2017-03 No Notes: Memoria Metoprolol 2-13 (Same as: l Tartrate 25 15:00: Toprol XL) [place] MG Extended 00 Do Not Release Crush Tablet [Toprol] duloxetine 2017-03 No Notes: Memor ia 2-13 (Same as: l 15:00: Cymbalta) [place] (Do Not Crush) Plavix 2017-03 No Notes: Memoria 2-13 (Same As: l 15:00: Plavix) [place] atorvastati 2017-03 No Notes: Kuldeep teto n 2-13 (Same as: l 03:00: Lipitor) [place] Trazodone 2017-03 No Notes: Memori a Hydrochlori 2-13 (Same As: l de 50 MG 03:00: Desyrel) [place] nn Oral Tablet 00 atorvastati 2017-03 No Notes: Kuldeep teto n 2-13 (Same as: l 03:00: Lipitor) [place] Trazodone 2017-03 No Notes: Memori a Hydrochlori 2-13 (Same As: l de 50 MG 03:00: Desyrel) [place] nn Oral Tablet 00 atorvastati 2017-03 No Notes: Kuldeep teto n 2-13 (Same as: l 03:00: Lipitor) [place] Trazodone 2017-03 No Notes: Memori a Hydrochlori 2-13 (Same As: l de 50 MG 03:00: Desyrel) [place] nn Oral Tablet 00 Sodium 2017-03 No 250 mL, Memoria Chloride 2-13 Rate: To l 0.9% 01:24: prime line [place] (titrate) 00 and flush 250 mL remaining blood products., Dosing Weight 85, kg, Route: IV, Total Volume: 250, Priority: Routine, Start Date: 02/13/18 19:24:00 [employer] REPRESENTATIVES, 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, Stop date: 03/15/18 19:23:00 VENDOR REPRESENTATIVES, Replace Every: 24 hr Sodium 2017-03 No 250 mL, Memoria Chloride 2-13 Rate: To l 0.9% 01:24: prime line [place] (titrate) 00 and flush 250 mL remaining blood products., Dosing Weight 85, kg, Route: IV, Total Volume: 250, Priority: Routine, Start Date: 02/13/18 19:24:00 VENDOR REPRESENTATIVES, 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, Stop date: 03/15/18 19:23:00 VENDOR REPRESENTATIVES, Replace Every: 24 hr Sodium 2017-03 No 250 mL, Memoria Chloride 2-13 Rate: To l 0.9% 01:24: prime line [place] (titrate) 00 and flush 250 mL remaining blood products., Dosing Weight 85, kg, Route: IV, Total Volume: 250, Priority: Routine, Start Date: 02/13/18 19:24:00 VENDOR REPRESENTATIVES, Duration: 30 day, Stop date: 03/15/18 19:23:00 VENDOR REPRESENTATIVES, Replace Every: 24 hr Vancomycin 2017- No 2000 mg: Me moria 2-13 infuse l 00:00: over 2.5 [place] 00 hours For adult patients only: Round to nearest 250 mg per Medical Staff approval MEDICATION WASTE Product Size: 1000 mg Product Wasted: ___ mg Vancomycin 2017- No 2000 mg: Me moria 2-13 infuse l 00:00: over 2.5 [place] 00 hours For adult patients only: Round to nearest 250 mg per Medical Staff approval MEDICATION WASTE Product Size: 1000 mg Product Wasted: ___ mg Vancomycin 2017- No 2000 mg: Me moria 2-13 infuse l 00:00: over 2.5 [place] 00 hours For adult patients only: Round to nearest 250 mg per Medical Staff approval MEDICATION WASTE Product Size: 1000 mg Product Wasted: ___ mg potassium 2018- No Notes: Memori a chloride 20 2-12 [...] s with feeding tube less than 14 [place] (Dobhoff, J-tube etc) and pediatric and patients. potassium 2017- No Notes: Memori a chloride 20 2-12 [...] s with feeding tube less than 14 [place] (Dobhoff, J-tube etc) and pediatric and patients. potassium 2017-03 No Notes: Memori a chloride 20 2-12 (Same as: l mEq oral 23:28: K-Dur 20) Herm ladi , 00 "Do Not extended Crush" release Give with food and full glass of water For patients unable to swallow tablet, dissolve in one half glass of water. Allow about 2 minutes for the tablets to disintegra te. Stir before giving to prepare slurry and administer . Please exclude Patient s with feeding tube less than 14 [place] (Dobhoff, J-tube etc) and pediatric and patients. Buspirone 2017-03 No Notes: Memori a 2-12 (Same As: l 23:00: BuSpar) Buspirone 2017-03 No Notes: Memori a 2-12 (Same As: l 23:00: BuSpar) Buspirone 2017-03 No Notes: Memori a 2-12 (Same As: l 23:00: BuSpar) 00 NS 1,000 mL 2017-03 No 1,000 mL, M emoria 212 Rate: 75 l 22:01: ml/hr, [place] 00 Infuse over: 13.3 hr, Route: IV, Dosing Weight 85 kg, Total Volume: 1,000, Start date: 02/13/18 16:01:00 [employer], Duration: 30 day, Stop date: 03/15/18 16:00:00 [employer], 2.1, m2 NS 1,000 mL 2017-03 No 1,000 mL, M emoria 212 Rate: 75 l 22:01: ml/hr, [place] 00 Infuse over: 13.3 hr, Route: IV, Dosing Weight 85 kg, Total Volume: 1,000, Start date: 02/13/18 16:01:00 [employer], Duration: 30 day, Stop date: 03/15/18 16:00:00 [employer], 2.1, m2 NS 1,000 mL 2017-03 No 1,000 mL, M emoria 212 Rate: 75 l 22:01: ml/hr, [place] 00 Infuse over: 13.3 hr, Route: IV, Dosing Weight 85 kg, Total Volume: 1,000, Start date: 02/13/18 16:01:00 [employer], Duration: 30 day, Stop date: 03/15/18 16:00:00 [employer], 2.1, m2 Rocephin + 2017-03 No Notes: Memor ia Sodium 2-12 (Same As: l Chloride 22:00: Rocephin). Her fernandes 0.9% IV 100 00 Use with mL 100 mL NS and infuse over 30 min MEDICATION WASTE Product Size: 1000 mg Product Wasted: ___ mg Rocephin + 2017-03 No Notes: Memor ia Sodium 2-12 (Same As: l Chloride 22:00: Rocephin). Her fernandes 0.9% IV 100 00 Use with mL 100 mL NS and infuse over 30 min MEDICATION WASTE Product Size: 1000 mg Product Wasted: ___ mg Rocephin + 2017-03 No Notes: Memor ia Sodium 2-12 (Same As: l Chloride 22:00: Rocephin). Her [...] emoria 2-12 Daily, 0 l 21:11: Refill(s) [place] 00 metoprolol 2017-03 No 25 mg = [...] tab, PO, l tablet 21:11: BID, 0 [place] 00 Refill(s) Sulfamethox 2017-03 No 1 tab, PO, Memoria azole 800 2-12 BID, # 14 l MG / 21:11: tab, 0 [place] Trimethopri 00 Refill(s) m 160 MG Oral Tablet Tramadol 2017-03 No 50 mg, PO, Mem oria 2-12 Q4-6H, PRN l 21:11: Pain, # 20 [place] 00 tab, 0 Refill(s) midodrine 2017-03 No 2.5 mg = 1 Me moria 2.5 mg oral 2-12 tab, PO, l tablet 21:11: BID, 0 [place] 00 Refill(s) clopidogrel 2017-03 No 75 mg = 1 [...] PO, l oral tablet 21:11: Bedtime, # [place] 00 30 tab, 0 Refill(s) busPIRone 2017-03 No 10 mg = 1 Mem oria 10 mg oral 2-12 tab, PO, l tablet 21:11: BID, 0 [place] 00 Refill(s) Sulfamethox 2017-03 No 1 tab, PO, Memoria azole 800 2-12 BID, # 14 l MG / 21:11: tab, 0 [place] Trimethopri 00 Refill(s) m 160 MG Oral Tablet Tramadol 2017-03 No 50 mg, PO, Mem oria 2-12 Q4-6H, PRN l 21:11: Pain, # 20 [place] 00 tab, 0 Refill(s) midodrine 2017-03 No 2.5 mg = 1 Me moria 2.5 mg oral 2-12 tab, PO, l tablet 21:11: BID, 0 [place] 00 Refill(s) clopidogrel 2017-03 No 75 mg = 1 M emoria 75 MG Oral 2-12 tab, PO, l Tablet 21:11: Daily, # [place] [Plavix] 00 90 tab, 1 Refill(s) duloxetine 2017-03 No 30 mg, PO, M emoria 2-12 Daily, 0 l 21:11: Refill(s) [place] 00 metoprolol 2017-03 No 25 mg = [...] PO, l oral tablet 21:11: Bedtime, # [place] 00 30 tab, 0 Refill(s) busPIRone 2017-03 No 10 mg = 1 Mem oria 10 mg oral 2-12 tab, PO, l tablet 21:11: BID, 0 [place] 00 Refill(s) Sulfamethox 2017-03 No 1 tab, PO, Memoria azole 800 2-12 BID, # 14 l MG / 21:11: tab, 0 [place] Trimethopri 00 Refill(s) m 160 MG Oral Tablet Tramadol 2017-03 No 50 mg, PO, Mem oria 2-12 Q4-6H, PRN l 21:11: Pain, # 20 [place] 00 tab, 0 Refill(s) midodrine 2017-03 No 2.5 mg = 1 Me moria 2.5 mg oral 2-12 tab, PO, l tablet 21:11: BID, 0 [place] 00 Refill(s) Acetaminoph 2017-03 No Notes: Do M emoria en 2-12 not exceed l 20:53: 4 gm/day. [place] 00 (Same as: Tylenol) Ondansetron 2017-03 No Notes: Kuldeep teto 2-12 (Same as: l 20:53: Zofran) [place] 00 MEDICATION WASTE Product Size: 4 mg Product Wasted: ___ mg Glucagon 2018- No 1 mg, Memoria 2-12 Route: IM, l 20:53: Drug form: [place] PDR/INJ, PRN, kg, PRN Blood Glucose Results, Start date: 02/13/18 14:53:00 VENDOR REPRESENTATIVES, Duration: 30 day, Stop date: 03/15/18 14:52:00 VENDOR REPRESENTATIVES Dextrose 2017-03 No 25 gm, 50 Kuldeep teto 50% Syringe 2-12 mL, Route: l 20:53: IVP, Drug Form: INJ, kg, PRN, PRN Blood Glucose Results, Start date: 02/13/18 14:53:00 VENDOR REPRESENTATIVES, Duration: 30 day, Stop date: 03/15/18 14:52:00 VENDOR REPRESENTATIVES Acetaminoph 2017-03 No Notes: Do M emoria en 2-12 not exceed l 20:53: 4 gm/day. [place] 00 (Same as: Tylenol) Ondansetron 2017-03 No Notes: Kuldeep teto 2-12 (Same as: l 20:53: Zofran) MEDICATION WASTE Product Size: 4 mg Product Wasted: ___ mg Glucagon 2017-03 No 1 mg, Memoria 2-12 Route: IM, l 20:53: Drug form: [place] 00 PDR/INJ, PRN, kg, PRN Blood Glucose Results, Start date: 02/13/18 14:53:00 VENDOR REPRESENTATIVES, Duration: 30 day, Stop date: 03/15/18 14:52:00 VENDOR REPRESENTATIVES Dextrose 2017-03 No 25 gm, 50 Kuldeep teto 50% Syringe 2-12 mL, Route: l 20:53: IVP, Drug Form: INJ, kg, PRN, PRN Blood Glucose Results, Start date: 02/13/18 14:53:00 VENDOR REPRESENTATIVES, Duration: 30 day, Stop date: 03/15/18 14:52:00 VENDOR REPRESENTATIVES Acetaminoph 2017-03 No Notes: Do M emoria en 2-12 not exceed l 20:53: 4 gm/day. [place] (Same as: Tylenol) Ondansetron 2017-03 No Notes: Kuldeep teto 2-12 (Same as: l 20:53: Zofran) MEDICATION WASTE Product Size: 4 mg Product Wasted: ___ mg Glucagon 2017-03 No 1 mg, Memoria 2-12 Route: IM, l 20:53: Drug form: [place] 00 PDR/INJ, PRN, kg, PRN Blood Glucose Results, Start date: 02/13/18 14:53:00 VENDOR REPRESENTATIVES, Duration: 30 day, Stop date: 03/15/18 14:52:00 VENDOR REPRESENTATIVES Dextrose 2017-03 No 25 gm, 50 Kuldeep teto 50% Syringe 2-12 mL, Route: l 20:53: IVP, Drug Form: INJ, kg, PRN, PRN Blood Glucose Results, Start date: 02/13/18 14:53:00 VENDOR REPRESENTATIVES, Duration: 30 day, Stop date: 03/15/18 14:52:00 VENDOR REPRESENTATIVES DULoxetine 2017-03 No 30 mg = 1 [...] tab, PO, l oral 18:48: Daily, # [place] enteric 00 30 tab, 0 coated Refill(s) tablet clopidogrel 2017-03 Yes 75 mg = 1 M emoria 75 mg oral 2-12 tab, PO, l tablet 18:48: Daily, 0 [place] 00 Refill(s) Aspirin 81 2017-03 No 162 [...] PO, l oral tablet 18:48: Bedtime, 0 [place] 00 Refill(s) midodrine 2017-03 No 5 mg = 2 Kuldeep teto 2.5 mg oral 2-12 tab, PO, l tablet 18:48: Daily, # [place] 00 180 tab, 0 Refill(s) busPIRone 2017-03 Yes 10 mg = 1 Mem oria 10 mg oral 2-12 tab, PO, l tablet 18:48: BID, 0 [place] 00 Refill(s) Trazodone 2017-03 No 50 mg = 1 Mem oria Hydrochlori 2-12 tab, PO, l de 50 MG 18:48: TID, # 90 Herm ladi Oral Tablet 00 tab, 0 Refill(s) DULoxetine 2017-03 No 30 mg = 1 [...] tab, PO, l oral 18:48: Daily, # [place] enteric 00 30 tab, 0 coated Refill(s) tablet clopidogrel 2017-03 Yes 75 mg = 1 M emoria 75 mg oral 2-12 tab, PO, l tablet 18:48: Daily, 0 [place] 00 Refill(s) Aspirin 81 2017-03 No 162 mg = 2 M emoria MG Enteric 2-12 tab, PO, l Coated 18:48: Daily, # [place] Tablet 00 90 tab, 3 Refill(s) metoprolol 2017-03 No 25 mg = 1 Me moria succinate 2-12 cap, PO, l 25 mg oral 18:48: Daily, 0 Her fernandes capsule, 00 Refill(s) extended release Sennosides 2017-03 No Sennosides M emoria 2-12 , 8.6 mg l 18:48: =, PO, [place] 00 Daily, Refill(s) 0 atorvastati 2017-03 Yes 80 mg = 1 M emoria n 80 mg 2-12 tab, PO, l oral tablet 18:48: Bedtime, 0 [place] 00 Refill(s) midodrine 2017-03 No 5 mg = 2 Kuldeep teto 2.5 mg oral 2-12 tab, PO, l tablet 18:48: Daily, # [place] 00 180 tab, 0 Refill(s) busPIRone 2017-03 Yes 10 mg = 1 Mem oria 10 mg oral 2-12 tab, PO, l tablet 18:48: BID, 0 [place] 00 Refill(s) Trazodone 2017-03 No 50 mg = 1 Mem oria Hydrochlori 2-12 tab, PO, l de 50 MG 18:48: TID, # 90 Herm ladi Oral Tablet 00 tab, 0 Refill(s) DULoxetine 2017-03 No 30 mg = 1 [...] tab, PO, l oral 18:48: Daily, # [place] enteric 00 30 tab, 0 coated Refill(s) tablet clopidogrel 2017-03 Yes 75 mg = 1 M emoria 75 mg oral 2-12 tab, PO, l tablet 18:48: Daily, 0 [place] 00 Refill(s) Aspirin 81 2017-03 No 162 [...] , 8.6 mg l 18:48: =, PO, [place] 00 Daily, Refill(s) 0 atorvastati 2017-03 Yes 80 mg = 1 M emoria n 80 mg 2-12 tab, PO, l oral tablet 18:48: Bedtime, 0 [place] 00 Refill(s) midodrine 2017-03 No 5 mg = 2 Kuldeep teto 2.5 mg oral 2-12 tab, PO, l tablet 18:48: Daily, # [place] 00 180 tab, 0 Refill(s) busPIRone 2017-03 Yes 10 mg = 1 Mem oria 10 mg oral 2-12 tab, PO, l tablet 18:48: BID, 0 [place] 00 Refill(s) Trazodone 2017-03 No 50 mg = 1 Mem [facility] Hydrochlori 2-12 tab, PO, l de 50 MG 18:48: TID, # 90 Herm ladi Oral Tablet 00 tab, 0 Refill(s) clopidogrel 2017-03 Yes [id number] 75mg Take 1 Univers 75 mg 1-14 07 tablet by ity of tablet 00:00: mouth [place] 00 daily. [facility] clopidogrel 2017-03 Yes [id number] 75mg Take 1 Univers 75 mg 1-14 07 tablet by ity of tablet 00:00: mouth [place] 00 daily. [facility] clopidogrel 2017-03 2020- No [id number] 75mg Take 1 Univers 75 mg 1-14 09-10 tablet by ity of tablet 00:00: 00:00 mouth [place] 00 :00 daily. [facility] clopidogrel 2017-03 2020- No [id number] 75mg Take 1 Univers 75 mg 1-14 09-10 tablet by ity of tablet 00:00: 00:00 mouth [place] 00 :00 daily. [facility] DULoxetine 2017-03 Yes [id number] 30mg Take 1 Univers 30 mg 0-22 capsule by ity of capsule 00:00: mouth [place] 00 daily. [facility] busPIRone 2017-03 Yes [id number] 10mg Take 1 Un jody 10 mg 0-22 tablet by ity of tablet 00:00: mouth 2 [place] 00 (two) Medical times Branch daily. DULoxetine 2017-03 Yes [id number] 30mg Take 1 Univers 30 mg 0-22 capsule by ity of capsule 00:00: mouth [place] 00 daily. [facility] busPIRone 2017-03 Yes [id number] 10mg Take 1 Un jody 10 mg 0-22 tablet by ity of tablet 00:00: mouth 2 [place] 00 (two) Medical times Branch daily. DULoxetine 2017-03- No [id number] 30mg Take 1 Univers 30 mg 0-22 09-10 capsule by ity of capsule 00:00: 00:00 mouth [place] 00 :00 daily. [facility] busPIRone 2017-03- No [id number] 10mg Take 1 U nivers 10 mg 0-22 09-10 tablet by ity of tablet 00:00: 00:00 mouth 2 [place] 00 :00 (two) Medical times Branch daily. DULoxetine 2017-03- No [id number] 30mg Take 1 Univers 30 mg 0-22 09-10 capsule by ity of capsule 00:00: 00:00 mouth [place] 00 :00 daily. [facility] busPIRone 2017-03- No [id number] 10mg Take 1 U nivers 10 mg 0-22 09-10 tablet by ity of tablet 00:00: 00:00 mouth 2 [place] 00 :00 (two) Medical times Branch daily. pantoprazol 2018-0 Yes 40mg Take 1 Univ ers e 40 mg EC 9-08 tablet by ity of tablet 00:00: mouth [place] 00 daily. [facility] pantoprazol Yes 40mg Take 1 Univ ers e 40 mg EC 9-08 tablet by ity of tablet 00:00: mouth [place] 00 daily. [facility] pantoprazol 0 Yes 40mg Take 1 Univ ers e 40 mg EC 9-08 tablet by ity of tablet 00:00: mouth [place] 00 daily. [facility] sennosides 2018- Yes 8.6mg Take 1 Univ ers 8.6 mg 9-08 tablet by ity of tablet 00:00: mouth [place] 00 daily. [facility] pantoprazol 0 Yes 40mg Take 1 Univ ers e 40 mg EC 9-08 tablet by ity of tablet 00:00: mouth [place] 00 daily. [facility] sennosides 2017- Yes 8.6mg Take 1 Univ ers 8.6 mg 9-08 tablet by ity of tablet 00:00: mouth [place] 00 daily. [facility] pantoprazol 2018- Yes 40mg Take 1 Univ ers e 40 mg EC 9-08 tablet by ity of tablet 00:00: mouth [place] 00 daily. [facility] pantoprazol Yes 40mg Take 1 Univ ers e 40 mg EC 9-08 tablet by ity of tablet 00:00: mouth [place] 00 daily. [facility] Branch pantoprazol 2017- Yes 40mg Take 1 Univ ers e 40 mg EC 9-08 tablet by ity of tablet 00:00: mouth [place] 00 daily. [facility] Branch pantoprazol 2017- 2020- No 40mg Take 1 Uni vers e 40 mg EC 9-08 11-09 tablet by ity of tablet 00:00: 00:00 mouth [place] 00 :00 daily. [facility] Branch pantoprazol 2017- 2020- No 40mg Take 1 Uni vers e 40 mg EC 9-08 11-09 tablet by ity of tablet 00:00: 00:00 mouth [place] 00 :00 daily. [facility] pantoprazol 2017- 2020- No 40mg Take 1 Uni vers e 40 mg EC -08 -09 tablet by ity of tablet 00:00: 00:00 mouth [place] 00 :00 daily. [facility] Branch sennosides 2018- 2020- No 8.6mg Take 1 Uni vers 8.6 mg 9-08 09-10 tablet by ity of tablet 00:00: 00:00 mouth [place] 00 :00 daily. [facility] sennosides 2017- 2020- No 8.6mg Take 1 Uni vers 8.6 mg 9-08 09-10 tablet by ity of tablet 00:00: 00:00 mouth [place] 00 :00 daily. [facility] Branch Vital Signs Vital Name Observation Time Observation Value Comments Source Diastolic blood 2021-06-01 15:26:00 90 mm[Hg] Nellie Johnson pressure Heart rate 2021-06-01 15:26:00 82 /min Kaela echols Body temperature 2021-06-01 15:26:00 36 Aretha Kaycee jona Raymondjessica Respiratory rate 2021-06-01 15:26:00 16 /min Kaycee Johnson Body height 2021-06-01 15:26:00 177.8 cm Kaela echols Body weight 2021-06-01 15:26:00 101.152 kg Kaela de la cruzliang BMI 2021-06-01 15:26:00 32.00 kg/m2 Kaela tenorioboliang Systolic blood 2021-06-01 15:26:00 136 mm[Hg] Kaela Martinybjessica pressure Systolic blood 2021-05-03 19:49:00 130 mm[Hg] Kaela Martinybold pressure Diastolic blood 2021-05-03 19:49:00 78 mm[Hg] [...] 2020-01-12 19:23:00 145 mm[Hg] [facility] Diastolic blood 2020-01-12 19:23:00 93 mm[Hg] [facility]ive [facility] Heart rate 2020-01-12 19:12:00 91 /min Universi ty [facility] [place] [facility] Respiratory rate 2020-01-12 19:12:00 17 /min [facility] height 2020-01-12 19:12:00 180.3 cm Universi ty [facility] [place] [facility] Body weight 2020-01-12 19:12:00 108.5 kg Universi ty [facility] [place] [facility] BMI 2020-01-12 19:12:00 33.36 kg/m2 Universi ty [facility] [place] [facility] Oxygen saturation in 2020-01-12 19:12:00 92 /min [facility] Arterial blood by [facility] Pulse oximetry Branch Systolic blood 2020-01-12 19:23:00 145 mm[Hg] Univer sity of pressure [facility] [place] Diastolic blood 2020-01-12 19:23:00 93 mm[Hg] Unive rsity of pressure [facility] [place] Heart rate 2020-01-12 19:12:00 91 /min Universi ty [facility] [place] [facility] Respiratory rate 2020-01-12 19:12:00 17 /min [facility] Body height 2020-01-12 19:12:00 180.3 cm Universi ty [facility] [place] [facility] Body weight 2020-01-12 19:12:00 108.5 kg Universi ty [facility] [place] [facility] BMI 2020-01-12 19:12:00 33.36 kg/m2 Universi ty [facility] [place] [facility] Oxygen saturation in 2020-01-12 19:12:00 92 /min University of Arterial blood by [facility] Pulse oximetry Branch Oxygen saturation in 2019-11-13 19:01:00 96 /min University Arterial blood by [facility] Pulse oximetry Branch Systolic blood 2019-11-13 19:01:00 131 mm[Hg] Univer sity of pressure [facility] [place] Diastolic blood 2019-11-13 19:01:00 73 mm[Hg] Unive rsity of pressure [facility] [place] Heart rate 2019-11-13 19:01:00 79 /min [facility] [place] [facility] [place] [facility] Body temperature 2019-11-13 19:01:00 36.17 Aretha [facility] Respiratory rate 2019-11-13 19:01:00 24 /min [facility] Body height 2019-11-13 19:01:00 180.3 cm [facility] [place] [facility] [place] [facility] Body weight 2019-11-13 19:01:00 109.317 kg Universi ty [facility] [place] [facility] BMI 2019-11-13 19:01:00 33.61 kg/m2 [facility] [place] [facility] Respitory Rate 2018-08-16 16:55:00 Memori al [place] Systolic (mm Hg) 2018-08-16 16:55:00 Kuldeep rial [place] Diastolic (mm Hg) 2018-08-16 16:55:00 Mem orial [place] Heart Rate 2018-08-16 16:55:00 [facility] [place] Temperature Oral (F) 2018-08-16 13:25:00 96.9 F [facility] [place] Respitory Rate 2018-08-16 13:25:00 Memori al [place] Systolic (mm Hg) 2018-08-16 13:25:00 Kuldeep rial [place] Diastolic (mm Hg) 2018-08-16 13:25:00 Mem orial [place] Heart Rate 2018-08-16 13:25:00 [facility] [place] BMI Calculated 2018-08-16 07:46:00 Memori al [place] Height 2018-08-16 07:46:00 185.42 cm [facility] [place] Weight 2018-08-16 07:46:00 [facility] [place] Systolic (mm Hg) 2018-08-16 07:44:00 Kuldeep rial [place] Diastolic (mm Hg) 2018-08-16 07:44:00 Mem orial [place] Heart Rate 2018-08-16 07:44:00 [facility] [place] Respitory Rate 2018-08-16 07:44:00 Memori al [place] Temperature Oral (F) 2018-08-16 07:44:00 98.2 F [facility] [place] Temperature Oral (F) 2018-08-16 06:58:00 98.3 F [facility] [place] Weight 2018-08-16 01:17:00 [facility] [place] Height 2018-08-16 01:17:00 185.42 cm [facility] [place] BMI Calculated 2018-08-16 01:17:00 Memori al [place] Height 2018-06-19 10:53:00 185.42 cm [facility] [place] BMI Calculated 2018-06-19 10:53:00 Memori al [place] Weight 2018-06-19 10:53:00 [facility] [place] Temperature Oral (F) 2018-06-03 20:45:00 98.2 F [facility] [place] Systolic (mm Hg) 2018-06-03 20:45:00 Kuldeep rial [place] Diastolic (mm Hg) 2018-06-03 20:45:00 Mem orial [place] Respitory Rate 2018-06-03 20:45:00 Memori al [place] Heart Rate 2018-06-03 20:45:00 [facility] [place] Systolic (mm Hg) 2018-06-03 19:45:00 Kuldeep rial [place] Diastolic (mm Hg) 2018-06-03 19:45:00 Mem orial [place] Respitory Rate 2018-06-03 19:45:00 Memori al [place] Heart Rate 2018-06-03 19:45:00 [facility] [place] Systolic (mm Hg) 2018-06-03 19:15:00 Kuldeep rial [place] Diastolic (mm Hg) 2018-06-03 19:15:00 Mem orial [place] Respitory Rate 2018-06-03 19:15:00 Memori al [place] Heart Rate 2018-06-03 19:15:00 [facility] [place] Temperature Oral (F) 2018-06-03 18:45:00 97.8 F [facility] [place] BMI Calculated 2018-06-03 14:00:00 Mem[facility] al [place] Weight 2018-06-03 14:00:00 [facility] [place] Height 2018-06-03 14:00:00 185.4 cm [facility] [place] Temperature Oral (F) 2018-06-03 12:15:00 98.1 F [facility] [place] BMI Calculated 2018-06-02 23:24:00 Memori al [place] Weight 2018-06-02 23:24:00 [facility] [place] Height 2018-06-02 23:24:00 185.42 cm [facility] [place] Weight 2018-06-02 20:36:00 [facility] [place] Respitory Rate 2018-05-21 12:44:00 Memori al [place] Systolic (mm Hg) 2018-05-21 12:44:00 Kuldeep rial [place] Diastolic (mm Hg) 2018-05-21 12:44:00 Mem orial [place] Temperature Oral (F) 2018-05-21 12:44:00 98.3 F [facility] [place] Heart Rate 2018-05-21 12:44:00 [facility] [place] Systolic (mm Hg) 2018-05-21 09:00:00 Kuldeep rial [place] Diastolic (mm Hg) 2018-05-21 09:00:00 Mem orial [place] Heart Rate 2018-05-21 09:00:00 [facility] [place] Respitory Rate 2018-05-21 09:00:00 Memori al [place] Temperature Oral (F) 2018-05-21 09:00:00 97.8 F [facility] [place] Systolic (mm Hg) 2018-05-21 05:00:00 Kuldeep rial [place] Diastolic (mm Hg) 2018-05-21 05:00:00 Mem orial [place] Temperature Oral (F) 2018-05-21 05:00:00 98.0 F [facility] [place] Respitory Rate 2018-05-21 05:00:00 Memori al [place] Heart Rate 2018-05-21 05:00:00 [facility] [place] Weight 2018-05-09 18:49:00 [facility] [place] BMI Calculated 2018-05-09 18:49:00 [facility] [place] Height 2018-05-09 18:49:00 185.42 cm [facility] [place] Systolic (mm Hg) 2018-03-01 19:00:00 Kuldeep rial [place] Diastolic (mm Hg) 2018-03-01 19:00:00 Mem orial [place] Systolic (mm Hg) 2018-03-01 18:00:00 Kuldeep rial [place] Diastolic (mm Hg) 2018-03-01 18:00:00 Mem orial [place] Temperature Oral (F) 2018-03-01 18:00:00 98.0 F [facility] [place] Systolic (mm Hg) 2018-03-01 17:00:00 Kuldeep rial [place] Diastolic (mm Hg) 2018-03-01 17:00:00 Mem orial [place] Temperature Oral (F) 2018-03-01 14:00:00 98.1 F [facility] [place] Temperature Oral (F) 2018-03-01 11:42:00 98 F [facility] [place] Respitory Rate 2018-02-28 14:00:00 [facility] [place] Respitory Rate 2018-02-28 13:00:00 [facility] [place] Respitory Rate 2018-02-28 12:00:00 [facility] [place] BMI Calculated 2018-02-28 10:03:00 [facility] [place] Height 2018-02-28 10:03:00 185.42 cm [facility] [place] Weight 2018-02-28 10:03:00 [facility] [place] BMI Calculated 2018-02-28 10:01:00 [facility] [place] Height 2018-02-28 10:01:00 185.42 cm [facility] [place] Weight 2018-02-28 10:01:00 [facility] [place] Temperature Oral (F) 2018-02-28 08:15:00 98.0 F [facility] [place] Systolic (mm Hg) 2018-02-28 08:15:00 Kuldeep rial [place] Diastolic (mm Hg) 2018-02-28 08:15:00 Mem orial [place] Respitory Rate 2018-02-28 08:15:00 Memori al [place] Systolic (mm Hg) 2018-02-28 07:45:00 Kuldeep rial [place] Diastolic (mm Hg) 2018-02-28 07:45:00 Mem orial [place] Respitory Rate 2018-02-28 07:45:00 Memori [facility] [place] Systolic (mm Hg) 2018-02-28 07:27:00 Kuldeep rial [place] Diastolic (mm Hg) 2018-02-28 07:27:00 Mem orial [place] Temperature Oral (F) 2018-02-28 07:27:00 98.0 F [facility] [place] Respitory Rate 2018-02-28 07:27:00 Memori al [place] Temperature Oral (F) 2018-02-28 05:30:00 97.9 F [facility] [place] Height 2018-02-28 03:15:00 185.42 cm [facility] [place] Heart Rate 2018-02-28 03:15:00 [facility] [place] BMI Calculated 2018-02-28 03:15:00 Memori al [place] Weight 2018-02-28 03:15:00 [facility] [place] Systolic (mm Hg) 2018-02-21 16:48:00 Kuldeep rial [place] Diastolic (mm Hg) 2018-02-21 16:48:00 Mem orial [place] Temperature Oral (F) 2018-02-21 16:48:00 98.3 F [facility] [place] Respitory Rate 2018-02-21 16:48:00 Memori al [place] Heart Rate 2018-02-21 16:48:00 [facility] [place] Heart Rate 2018-02-21 13:47:00 [facility] [place] Temperature Oral (F) 2018-02-21 13:47:00 97.7 F [facility] [place] Systolic (mm Hg) 2018-02-21 13:47:00 Kuldeep rial [place] Diastolic (mm Hg) 2018-02-21 13:47:00 Mem orial [place] Respitory Rate 2018-02-21 13:47:00 [facility]ori [facility] [place] Temperature Oral (F) 2018-02-21 10:00:00 98.3 F [facility] [place] Systolic (mm Hg) 2018-02-21 10:00:00 Kuldeep rial [place] Diastolic (mm Hg) 2018-02-21 10:00:00 Mem orial [place] Heart Rate 2018-02-21 10:00:00 [facility] [place] Respitory Rate 2018-02-21 10:00:00 [facility] [place] BMI Calculated 2018-02-13 20:53:00 [facility] [place] Height 2018-02-13 20:53:00 185.42 cm [facility] [place] Weight 2018-02-13 20:53:00 [facility] [place] Height 2018-02-13 18:42:00 [facility]42 [facility] 2018-02-13 18:42:[address] [facility] [place] BMI Calculated 2018-02-13 18:42:00 Patriciomaria luisa montoya [place] Systolic (mm Hg) 2018-02-13 18:42:00 Kuldeepjudith king [place] Diastolic (mm Hg) 2018-02-13 18:42:00 Mem orial [place] Procedures Procedure Date / Time Performing Clinician Source Performed [id number] 2022-06-24 00:00:00 NGUCH.08 [facility] [id number] 2022-06-24 00:00:00 NGUCH.08 [facility] [id number] 2022-06-24 00:00:00 NGUCH.08 [facility] [id number] 2022-06-24 00:00:00 NGUCH.08 [facility] [id number] 2022-06-24 00:00:00 NGUCH.08 [facility] [id number] 2022-06-24 00:00:00 NGUCH.08 [facility] EXTERNAL PROVIDER - ADC 2020-11-03 05:01:00 Doctor Unassigned, [facility] REFERRAL [facility] AGREEMENTS AUTHORIZATIONS 2019-11-11 05:01:00 Doctor Unassigned, [facility] AND IRREVOCABLE [facility] ASSIGNMENTS (FORM 2001) CABG x 4 - Coronary 2017-11-02 05:00:[address] [facility] [place] artery bypass grafts x 4 CABG - Coronary artery 2017-11-02 05:00:00 Doc vasquez [place] bypass graft Repair of umbilical 2016-03-05 00:00:00 [facility] En[facility] Start End Encounter Admission Attending Care Care Encounter Source Date/Time Date/Time Type Type Clinicians Facility Department ID 2018-06-02 Inpatient E [facility] [id number] Mem [facility] 16:35:[address] [place] [facility] 2022-06-24 2022-06-25 Inpatient EM NICHOLAS Red INTE.02 [id number] [facility] 02:18:00 11:01:[address] 2022-06-24 2022-06-24 Outpatient ELSA Red LABO [id number] [facility] 06:25:00 06:25:00 Jamal 77 [facility] 2022-05-11 2022-05-11 Outpatient MARIELKIMBERLEY KAELA BRICE [id number] Kaela 00:00:00 00:00:00 PABLO Seybol d 2021-06-17 2021-06-17 Outpatient TOSHIA KAELA BRICE [id number] Kaela 00:00:00 00:00:00 PABLO Seybol d 2021-06-13 2021-06-13 Outpatient KAELA BAILEY [id number] Kaela 00:00:00 00:00:00 VERITO Seybol d 2021-06-01 2021-06-01 Office Garfield Allen [id number] Kaela 11:00:00 11:15:00 Visit Pablo Méndez [id number] Se ybold [id number] 2021-05-31 2021-05-31 Outpatient KAEAL ALLEN [id number] Kaela 10:30:00 10:30:00 PABLO Seybol d 2021-05-04 2021-05-04 Outpatient LAB90 KAELA BRICE [id number] Kaela 09:45:00 09:45:00 Seybol d 2021-05-04 2021-05-04 Outpatient TOSHIA KAELA BRICE [id number] Kaela 00:00:00 00:00:00 PABLO Seybol d 2021-05-03 2021-05-03 Office Garfield Allen [id number] Kaela 14:15:00 15:00:00 Visit Pablo Méndez [id number] Se ybold [id number] 2021-05-03 2021-05-03 Outpatient KAELA ALLEN [id number] Kaela 00:00:00 00:00:00 PABLO Seybol d 2021-01-13 2021-01-13 Outpatient R KEYONA SUAZO [facility] 10 [id number] Univers 15:00:00 15:00:00 KEYONA SUAZO i [facility] 2020-11-03 2020-11-03 Orders Doctor TERRY [id number] Univers 00:00:00 00:00:00 Only Unassigned, [facility] [id number] [facility] [id number] Oni as [id number] [facility] [address] [place] [address] 2020-07-12 2020-07-12 [facility] [id number] Univers 13:00:00 13:00:00 JD smith o f [facility] 2020-05-11 2020-05-11 [facility] [id number] Univers 00:00:00 00:00:00 Outreach Mahesh PRIMARY [id number] i ty of [facility] [id number] [id number] [facility] [address] 2020-05-11 2020-05-11 Patient [facility] [id number] 00:00:00 00:00:00 Outreach Mahesh PRIMARY [id number] [facility] [id number] PAVILLION [id number] 2020-02-06 2020-02-06 Outpatient R [facility] [id number] Univers 13:00:00 13:00:00 LUCITA smith [facility] 2020-01-19 2020-01-19 [facility] 1.2.483.684 [id number] Univers 00:00:00 00:00:00 Jd Fierro 350.1.13.10 ity [facility] [place] [phone] [place] dicnv nal 059 [facility] 2020-01-19 2020-01-19 [facility] 1.2.463.780 [id number] 00:00:00 00:00:00 Jd Fierro 350.1.13.10 [place] 4.2.7.2.686 Professio [phone] nal [address] [place] [address] 2020-01-14 2020-01-14 Outpatient R [facility] [id number] Univers 11:40:00 11:40:00 JD smith o f [facility] [place] 2020-01-12 2020-01-12 Office [facility] 1.2.840.114 [id number] Univers 12:41:56 13:52:29 Visit Jd Fierro 350.1.13.10 ity of [place] [phone] Ga dical [address] 2020-01-12 2020-01-12 Office [facility] 1.2.840.114 [id number] 12:41:56 13:52:29 Visit Jd Knowleston 350.1.13.10 [place] 4.2.7.2.686 Professio [phone] [address] 2020-01-12 2020-01-12 Outpatient R [facility] [id number] Univers 13:00:00 13:00:00 JD jocelinealcides ta [facility] [place] 2019-11-13 2019-11-13 Office Care, Denny DAVIDSON 1.2.840 .114 [id number] Univers 13:03:27 14:10:15 Visit Arsen Dixon [facility] 350.1.13.10 ity of [facility] [place].2.[place].2.[place] [phone] [address] 2019-11-13 2019-11-13 Telephone Arsen Dixon 1.2.840.114 [id number] Univers 00:00:00 00:00:00 [facility] 350.1.13.10 it y [place] [phone] [facility] [address] 2019-11-11 2019-11-11 Outpatient R ARSEN DIXON [facility] [id number] Univers 10:30:00 10:30:00 ity of [facility] [place] 2019-11-11 2019-11-11 Orders Doctor STEWART 1.2.840.114 [id number] Univers 00:00:00 00:00:00 Only Unassigned, EMMA 350.1.13.10 ity of [place] [facility] 4.2.7.2.686 Oni as [phone] [facility] [address] 2019-05-27 2019-05-27 Telephone TERRY Roa 1.2.840.114 [id number] Univers 00:00:00 00:00:00 Sofia CARTER 350.1.13.10 it y of [facility] [place].2.[place] [phone] [facility] [address] 2019-03-28 2019-03-28 Telephone HUMPHREY Mcmahon 1.2.840.114 [id number] Univers 00:00:00 00:00:00 Edin Larson [facility] 350.1.13.10 ity of [facility] [place].2.[place] [phone] [facility] [address] 2018-08-16 2018-08-16 Observatio [facility] [id number] Memoria 01:10:48 18:24:00 jasmina Ahuaj 03 [facility] 2018-08-16 2018-08-16 Observatio nullFlavo [facility] [id number] Memoria 01:10:48 18:24:00 jasmina Ahuja [address] [place] [address] 2018-08-15 2018-08-16 Outpatient Emery [facility] [id number] 20:10:48 13:24:00 Gladys Yogesh MandujanoKeys 2018-08-16 2018-08-16 Outpatient E [facility] [id number] [facility] 01:28:00 01:28:00 2018-06-21 2018-06-21 [address] [facility] [id number] Memoria 15:57:00 21:41:00 Outpatient r Seymour 02 [facility] 2018-06-21 2018-06-21 [address] [facility] [id number] Memoria 15:57:00 21:41:00 Outpatient r Seymour Hui l [facility] 2018-06-21 2018-06-21 Outpatient Pedro [facility] [id number] 10:57:00 16:41:00 Pepito Tapia 2018-06-21 2018-06-21 Outpatient [facility] [id number] Memoria 10:57:00 10:57:00 [facility] 2018-06-03 Inpatient nullFlavo [facility] [id number] Memoria 20:34:00 23:50:00 r Seymour 01 l [facility] 2018-06-02 2018-06-03 Inpatient [facility]Fl[facility] [id number] Memoria 20:34:00 23:50:00 r Seymour 01 l [facility] 2018-06-02 2018-06-03 Outpatient Eddy [facility] [id number] 15:34:00 18:50:00 Timothy 2018-05-09 2018-05-21 Inpatient [facility] [id number] Memoria 18:05:00 17:09:00 r Seymour 66 [facility] 2018-05-09 2018-05-21 Inpatient nullFlavo [facility] [id number] Memoria 18:05:00 17:09:00 r Seymour 66 [facility] 2018-05-09 2018-05-21 Outpatient Gigiivett [facility] [id number] 12:05:00 12:09:00 Olaosuzanna 68 M 2018-05-08 2018-05-08 [place] [id number] Memoria 19:30:00 19:30:00 Pre-Reg r Cardiology 03 [facility] 2018-05-08 2018-05-08 [place] [id number] Memoria 19:30:00 19:30:00 Pre-Reg r Cardiology 03 [facility] 2018-05-08 2018-05-08 Outpatient [place] [id number] Memoria 13:30:00 13:30:00 03 [facility] 2018-05-08 2018-05-08 Outpatient Seymour [facility] [id number] 13:30:00 13:30:00 Hectorracquel Vanegas 03 2018-04-29 2018-04-29 [place] [id number] Memoria 16:30:00 16:30:00 Pre-Reg r Cardiology 02 [facility] 2018-04-29 2018-04-29 [place] [id number] Memoria 16:30:00 16:30:00 Pre-Reg r Cardiology 02 [facility] 2018-04-29 2018-04-29 Outpatient MHIE IE [id number] Memoria 10:30:00 10:30:00 02 [facility] 2018-04-29 2018-04-29 Outpatient Seymour [facility] [id number] 10:30:00 10:30:00 Hector Vanegas 2018-04-05 2018-04-06 Outpt Diag nullFlavo [facility] [id number] Memoria 22:00:00 05:59:00 Services r Outpatient 00 l [facility] 2018-04-05 2018-04-06 Outpt Diag nullFlavo [facility] [id number] Memoria 22:00:00 05:59:00 Services r Outpatient 00 l [facility] 2018-04-05 2018-04-05 Outpatient Nghia Oneal 2.16.840. 2.16.840. 1. [id number] 16:00:00 23:59:00 M [id number]. [id number] 00 3.615.30 5.30 2018-02-28 2018-03-01 Inpatient [facility] [id number] Memoria 09:45:00 20:05:00 r Seymour 61 [facility] 2018-02-28 2018-03-01 Inpatient [facility]Fl[facility] [id number] Memoria 09:45:00 20:05:00 r [place] 61 [facility] 2018-02-28 2018-03-01 Outpatient Jamie Rush [facility] [id number] 03:45:00 14:05:00 A 63 2018-02-28 2018-02-28 Emergency [facility]Fl[facility] [id number] Memoria 03:10:00 08:14:00 r Seymour 00 [facility] 2018-02-28 2018-02-28 Emergency nullFlavo [facility] [id number] Memoria 03:10:00 08:14:00 r [place] 00 [facility] 2018-02-27 2018-02-28 Outpatient JACKIE Medina [facility] [id number] 21:10:00 02:14:00 Brigido Jennings 2018-02-13 2018-02-21 Inpatient [facility]Fl[facility] [id number] Memoria 20:01:00 20:00:00 r [place] 46 [facility] 2018-02-13 2018-02-21 Inpatient nullFlavo [facility] [id number] Memoria 20:01:00 20:00:00 r [place] 46 [facility] 2018-02-13 2018-02-21 Outpatient Venkata [facility] [id number] 14:01:00 14:00:00 Chi Camilla Nielsen 2018-02-13 2018-02-14 Outpatient nullFlavo [facility] [id number] Memoria 18:30:00 05:59:59 r Cardiology 01 [facility] 2018-02-13 2018-02-14 Outpatient nullFlavo [facility] [id number] Memoria 18:30:00 05:59:59 r Cardiology 01 [facility] 2018-02-13 2018-02-13 [facility] [id number] 12:30:00 23:59:59 Hector Guilherme 2018-02-13 2018-02-13 Outpatient [facility] [id number] Memoria 12:30:00 12:30:00 01 [facility] 2018-02-11 2018-02-11 Ambulatory nullFlavo [facility] [id number] Memoria 17:00:00 17:00:00 Pre-Reg r Cardiology 00 [facility] 2018-02-11 2018-02-11 Ambulatory nullFlavo [facility] [id number] Memoria 17:00:00 17:00:00 Pre-Reg r Cardiology 00 [facility] 2018-02-11 2018-02-11 Outpatient Seymour [facility] [id number] 11:00:00 11:00:00 Hector Gene 00 Results Test Description Test Time Test Comments Results Result Comments Source GLUCOSE BEDSIDE TESTING 2022-06-24 21:02:00 Test Item Value Reference Range Interpretation Comme nts GLUCOSE BEDSIDE TESTING (test code = GLUBED) 97 mg/dL 70-110 N GLYCOSYLATED HEMOGLOBIN (HA1C)2022-06-24 07:19:00 Test Item Value Reference Range Interpretation Comments GLYCOSYLATED HEMOGLOBIN (HA1C) 5.3 % A1C 0.0-5.7 N (test code = GLYHGB) LIPID PROFILE (CORONARY RISK)2022-06-24 07:17:00 Test Item Value Reference Range Interpretation Comments TRIGLYCERIDES (test 51 MG/DL 0-150 N code = TRIG) CHOLESTEROL (test 136 MG/DL 133-200 N code = CHOL) CHOLESTEROL/HDL 2.89 RATIO See_Comment RISK ASSOCIA GARRETT WITH RATIO (test code = CHOL/HDL RATIOS: RISK CHOLHDL) MALE FEMALE1/2 AVERAGE 3.43 3.27AVERAG E 4.97 4.442X AVERAGE 9.55 7.053X AVERAGE 23.39 11.04 NOTE THAT THE REFERENCE VALUE IS RELATED TO RISK LEVELS ASRECOMMENDED B Y THE [facility]ATIONAL [facility], L[facility]G, [facility]OD [facility] . [Automated mess age] The system which mobiManage nerated this result tra nsmitted reference range : 0-. The reference range was not used to interpr et this result as normal/abnormal . HDL CHOLESTEROL 47 MG/DL 40-59 N (test code = HDL) NON-HDL CHOLESTEROL 89 mg/dL <130 (test code = NHDL) LIPOPROTEIN LDL 82 MG/DL 0-129 N <100 OPTIMAL 100 - 129 (test code = LDL) NEAR OPTIM AL/ABOVE [id number] - 15 9 [id number] - 189 HIGH>OR= 190 VE RY HIGHNOTE THAT G UIDELINES ARE PROVIDED BY NATIONAL CHOLESTEROLEDUC ATION PROGRAM ADULT T REATMENT PANEL III LDL/HDL (test code 1.74 Ratio See_Comment N [Automat ed message] The = LDL/HDL) system which mobiManage nerated this result tra nsmitted reference range : 1.48-3.22 Avg. The reference range was not used to interpr et this result as normal/abnormal . BASIC METABOLIC [id number] 05:35:00 Test Item Value Reference Range Interpretation Comments SODIUM (test code 136 mmol/L 134-147 N = NA) POTASSIUM (test 4.3 mmol/L 3.4-5.0 N code = K) CHLORIDE (test 108 mmol/L 100-108 N code = CL) CARBON DIOXIDE 27 mmol/L 21-32 N (test code = CO2) ANION GAP (test 1.0 GAP calc 4.0-15.0 L code = GAP) GLUCOSE (test code 132 MG/DL 70-110 H = GLU) BLOOD UREA 22 MG/DL 7-18 H NITROGEN (test code = BUN) GLOMERULAR >=60 max >60 The Glomerular FILTRATION RATE estimate estGFR Filtratio n Rate is a (test code = GFR) calculated parameterbased on serum Creatinin e, patient age and sex. GFR valuesless than 60 mL/min/1.73 square meters are alta cative ofChronic Kidne y Disease. Values less than 15 mL/min/1.73squa re meters indicate Kidney failure. The calculation for GFR is based on the CK D-EPI (2020) calculat ion. This formulais race indifferent and is the recommended formula for GFR by the National Kidney Foundation for Adults.The GFR will not calculate i f the sex is unknown or if thepatient's ag e is <18 years. CREATININE (test 1.1 MG/DL 0.8-1.3 N code = CREAT) CALCIUM (test code 8.2 MG/DL 8.5-10.1 L = CA) CBC W/AUTO [id number] 05:34:00 Test Item Value Reference Range Interpretation Comments WHITE BLOOD CELL 9.9 K/mm3 3.5-11.0 N (test code = WBC) RED BLOOD CELL (test 4.69 M/mm3 4.70-6.10 L code = RBC) HEMOGLOBIN (test code 14.7 G/DL 12.3-15.9 N = HGB) HEMATOCRIT (test code 43.5 % 35.8-46.7 N = HCT) MEAN CELL VOLUME 92.8 Fl 86.3-98.9 N (test code = MCV) MEAN CELL HGB (test 31.3 pg 28.9-34.4 N code = MCH) MEAN CELL HGB 33.8 G/DL 32.1-34.5 N CONCETRATION (test code = MCHC) RED CELL DISTRIBUTION 12.8 SD 11.5-14.5 N WIDTH (test code = RDW) PLATELET COUNT (test 216 K/mm3 150-450 N code = PLT) MEAN PLATELET VOLUME 10.00 fL 7.0-9.6 H (test code = MPV) NEUTROPHIL % (test 93.4 % 40-76 H code = NT%) IMMATURE GRANULOCYTE 0.3 % 0.0-5.0 N % (test code = IG%) LYMPHOCYTE % (test 4.1 % 20.5-51.1 L code = LY%) MONOCYTE % (test code 1.5 % 1.7-9.3 L = MO%) EOSINOPHIL % (test 0.1 % 0.0-6.0 N code = EO%) BASOPHIL % (test code 0.6 % 0.0-2.0 N = BA%) NUCLEATED RBC % (test 0.0 /100WBC% 0.0-1.0 N code = NRBC%) NEUTROPHIL # (test 9.2 K/mm3 1.8-7.6 H code = NT#) IMMATURE GRANULOCYTE 0.03 x10 3/uL 0.00-0.03 N # (test code = IG#) LYMPHOCYTE # (test 0.4 K/mm3 0.6-3.0 L code = LY#) MONOCYTE # (test code 0.2 K/mm3 0.2-1.5 N = MO#) EOSINOPHIL # (test 0.0 K/mm3 0.0-0.4 N code = EO#) BASOPHIL # (test code 0.1 K/mm3 0.0-0.2 N = BA#) NUCLEATED RBC # (test 0.0 K/mm3 0.00-0.01 N code = NRBC#) MANUAL DIFF REQUIRED NO DIFF/SCN CRITERIA SLIDE R WAQASW (test code = MDIFF) CONSISTA NT WITH AUTO DIFFERENTI AL. COAGULATION TIME [id number] 02:25:00 Test Item Value Reference Range Interpretation Comments COAGULATION TIME ACTIVATED (test code 267 SEC 74-125 H = ACT) - XR CHEST 1 [id number] 01:41:00 [facility] 1955 Sex: M Name: PATITO LUNA [facility] : 1955 Age/S: 66 / M [id number] [address] [place] Unit #: [id number] Loc: [place] [address] Phys: Sydney De Leon MD Acct: [id number] Dis Date: Status: REG ER PHONE #: [phone] Exam Date: 06/24/2022138 FAX #: Reason: chest pain EXAMS: CPT: [id number] XR CHEST 1 V 37170 Fluoro Time: DAP (Gy m2): Air Kerma (mGy): AP Portable Chest Location Code M12 HISTORY: chest painFINDINGS: The left lung base and costophrenic angle are not fully included in the fucmi-cv-ilhs. Mild atelectatic changes are present in the left lower lobe. Right lung is clear. There is no pneumothorax. Cardiac silhouette and mediastinum appear within normal limits. IMPRESSION: Mild left basilar sub segmental atelectasis. Limited study. at 0141 Reported and signed by: Janet Queen M.D. CC: Sydney De Leon MD PAGE 1 Signed Report Name: PATITO LUNA [facility] : 1955 Age/S: 66 / M [id number] [address] [place] Unit #: [id number] Loc: [place] [address] Phys: Sydney De Leon MD Acct: [id number] Dis Date: Status:REG ER PHONE #: [phone] Exam Date: 06/24/2022138 FAX #: Reason: chest pain EXAMS: CPT: [id number] XR CHEST 1 V 38728 Fluoro Time: DAP (Gy m2): Air Kerma (mGy): (Continued) Technologist: Alice Posada, RT(R)(CT) Trnscb Date/Time: 06/24/2022 (014) [email or web address] Orig Print D/T: S: 06/24/2022 (014) PAGE 2 Signed ReportTROP-I HIGH [id number] 01:38:00 Test Item Value Reference Range Interpretation Comments TROP-I HIGH 5.9 ng/L 0-78 N CAUTION: Units of the SENSITIVITY (test current te st methodology code = TROPIHS) (ng/L) diffe rfrom the prior test meth odology (ng/mL) by a fa ctor of 1000. 99t h Percentile Uppe r Reference Limit (URL):Fem ales: 54 ng/LMales: 79 n g/L In order to distin guish acute elevations of h igh sensitivitytrop onin from other clinical conditions, the FourthUnive rsal Definition of M yocardial Infarction stressesclinica l assessment and the demonstration o f a rise and/orfall in s erial troponin result s above the URL. Results fr om different metho dologies should not be c omparedto one another as quantitative re sults and URLs may varyby method. Completed by Nursing: [id number] 01:38:00 Test Item Value Reference Range Interpretation Comments D-DIMER (test 261 ng/mLFEU 215-500 N THROMBOSIS AND /OR PULMONARY code = EMBOLISM AND TH E CLINICAL DDIMER) CUT-OFF VALUE F OR EXCLUSION (500 ng/mL FEU) OF THESE CONDITIONSIS VA LIDATED BY THE MANUFACTURE R OF THE METHOD. A NEGAT SHELIA D-DIMER RESULT WHEN COM BINED WITH A CLINICALASSESSM ENT OF LOW PRETEST PROBABI LITY HAS BEEN SHOWN TO HAVEA HIGH NEGATIVE PREDICTIVE VALU E OF DVT OR PE. D-DIMER KRYSTAL UES >500 ng/mL FEU ARE N OT DIAGNOSTIC FOR DVT, PEor D IC WITHOUT OTHER CONFIRMAT ORY TESTS AND APPROPRIATECLIN ICAL EUALUATIONS. BASIC METABOLIC [id number] 01:38:00 Test Item Value Reference Range Interpretation Comments SODIUM (test code = 138 mmol/L 134-147 N NA) POTASSIUM (test 4.4 mmol/L 3.4-5.0 N code = K) CHLORIDE (test code 105 mmol/L 100-108 N = CL) CARBON DIOXIDE 31 mmol/L 21-32 N (test code = CO2) ANION GAP (test 2.0 GAP calc 4.0-15.0 L code = GAP) GLUCOSE (test code 122 MG/DL 70-110 H = GLU) BLOOD UREA NITROGEN 27 MG/DL 7-18 H (test code = BUN) GLOMERULAR 48 estGFR >60 L The Glomerular FILTRATION RATE Filtration R ate is a (test code = GFR) calculated parameterbased on serum Creatinin e, patient age and sex. GFR valuesless than 60 mL/min/1.73 squ are meters are alta cative ofChronic Kidne y Disease. Values less than 15 mL/min/1.73squa re meters indicate Kidney failure. The calculation for GFR is based on the CK D-EPI (2020) calculat ion. This formulais race indifferent and is the recommended for nadja for GFRby the N ational Kidney Foundati on for Adults.The GFR will not calculate i f the sex is unknown or if thepatient's ag e is <18 years. CREATININE (test 1.6 MG/DL 0.8-1.3 H code = CREAT) CALCIUM (test code 9.0 MG/DL 8.5-10.1 N = CA) Completed by Nursing: NOCREATINE KINASE (CK)2022-06-24 01:38:00 Test Item Value Reference Range Interpretation Comments CREATINE KINASE (CK) (test code = 58 Unit/L 26-192 N CK) Completed by Nursing: NONT PRO-BRAIN NATRIURETIC [id number] 01:38:00 Test Item Value Reference Range Interpretation Comments NT PRO-BRAIN NATRIURETIC PEPTI 127 PG/ML 0-100 H (test code = PROBNP) Completed by Nursing: NOCBC W/O [id number] 01:19:00 Test Item Value Reference Range Interpretation Comments WHITE BLOOD CELL (test code = WBC) 9.5 K/mm3 3.5-11.0 N RED BLOOD CELL (test code = RBC) 5.09 M/mm3 4.70-6.10 N HEMOGLOBIN (test code = HGB) 16.0 G/DL 12.3-15.9 H HEMATOCRIT (test code = HCT) 47.9 % 35.8-46.7 H MEAN CELL VOLUME (test code = MCV) 94.1 Fl 86.3-98.9 N MEAN CELL HGB (test code = MCH) 31.4 pg 28.9-34.4 N MEAN CELL HGB CONCETRATION (test 33.4 G/DL 32.1-34.5 N code = MCHC) RED CELL DISTRIBUTION WIDTH (test 12.6 SD 11.5-14.5 N code = RDW) PLATELET COUNT (test code = PLT) 237 K/mm3 150-450 N MEAN PLATELET VOLUME (test code = 9.90 fL 7.0-9.6 H MPV) [id number] 09:13:00 Test Item Value Reference Range Interpretation Comments Bili Indirect Unable to See_Comment [Automated (test code = Bili Calculate message] T he system Indirect) which generated this result transmitted reference range : <=1.0. The reference range was not used to interpret this result as normal/abnormal . [facility]2019-06-14 09:13:00 Test Item Value Reference Range Interpretation Comments Bili Direct (test code no gt See_Comment [Aut omated message] The = Bili Direct) system which generated this result tra nsmitted reference range : <=0.3. The reference r ondina was not used to int erpret this result as cassie l/abnormal. [facility]2019-06-14 09:13:00 Test Item Value Reference Range Interpretation Comments Total Protein (test code = Total 6.9 6.4-8.4 Protein) [facility]2019-06-14 09:13:00 Test Item Value Reference Range Interpretation Comments Albumin Lvl (test code = Albumin Lvl) 3.0 3.5-5.0 [facility]2019-06-14 09:13:00 Test Item Value Reference Range Interpretation Comments Globulin (test code = Globulin) 3.9 2.7-4.2 [facility]2019-06-14 09:13:00 Test Item Value Reference Range Interpretation Comments Alk Phos (test code = Alk Phos) 214 39-136 [facility]2019-06-14 09:13:00 Test Item Value Reference Range Interpretation Comments Bili Total (test code = Bili Total) 0.3 0.2-1.3 [place] [id number] 09:13:00 Test Item Value Reference Range Interpretation Comments AST (test code = AST) 207 See_Comment [Auto mated message] The system which ge nerated this result transmit garrett reference range : <=37. The reference range was not used to interpr et this result as cassie l/abnormal. [facility]2019-06-14 09:13:00 Test Item Value Reference Range Interpretation Comments A/G Ratio (test code = A/G Ratio) 0.8 1 0.7-1.6 [facility]2019-06-14 09:13:00 Test Item Value Reference Range Interpretation Comments ALT (test code = ALT) 148 See_Comment [Auto mated message] The system which ge nerated this result transmit garrett reference range : <=65. The reference range was not used to interpr et this result as cassie l/abnormal. [facility] Hos[id number] 09:13:00 Test Item Value Reference Range Interpretation Comments AGAP (test code = AGAP) 11.2 10.0-20.0 [facility] HospitalInzfozdLSOYZZDHMGKZ6797-54-26 09:13:00 Test Item Value Reference Range Interpretation Comments eGFR (test code = eGFR) 85 [facility] HospitalZqldzffUZCHYHNUCHLG7747-85-99 09:13:00 Test Item Value Reference Range Interpretation Comments Creatinine Lvl (test code = Creatinine 0.96 0.50-1.40 Lvl) [facility] HospitalSclonzqTVSNSSNVPLAF4191-89-77 09:13:00 Test Item Value Reference Range Interpretation Comments Potassium Lvl (test code = Potassium 4.2 3.5-5.1 Lvl) [facility] HospitalYobhqknWDBPNGFZALSJ5678-85-73 09:13:00 Test Item Value Reference Range Interpretation Comments Sodium Lvl (test code = Sodium Lvl) 141 135-145 [facility] HospitalYcpaznvCZJOITTYANMY4819-63-49 09:13:00 Test Item Value Reference Range Interpretation Comments Chloride Lvl (test code = Chloride Lvl) 110 95-109 [facility] HospitalZmazhgnFKKOBGHHYIHY6019-33-97 09:13:00 Test Item Value Reference Range Interpretation Comments CO2 (test code = CO2) 24 24-32 [facility] HospitalZyelxhdUPGCKRJURGSD3433-76-02 09:13:00 Test Item Value Reference Range Interpretation Comments BUN (test code = BUN) 19 7-22 [facility] HospitalZqywqknJFJLUBIZPMUN7392-33-44 09:13:00 Test Item Value Reference Range Interpretation Comments Glucose Lvl (test code = Glucose Lvl) 86 70-99 [facility] HospitalGglxrogIJTBWNDNYUNY2567-81-49 09:13:00 Test Item Value Reference Range Interpretation Comments Calcium Lvl (test code = Calcium Lvl) 9.0 8.5-10.5 [facility]NcthrkvLCZRPIMZEU7814-54-19 09:13:00 Test Item Value Reference Range Interpretation Comments Microcyte (test code = 1+ *ABN*(08/16/18 Microcyte) 4:13 AM) [facility] HospitalFczdmdjRTQZVBKPXY7159-97-49 09:13:00 Test Item Value Reference Range Interpretation Comments Neutrophils # (test code = Neutrophils 2.7 1.5-8.1 #) [facility] HospitalLnbjxcuLHUVLTXTBH7214-40-85 09:13:00 Test Item Value Reference Range Interpretation Comments Lymphocytes # (test code = Lymphocytes 1.3 1.0-5.5 #) [facility] HospitalBtmhqguIBNSAXXAOK2363-10-18 09:13:00 Test Item Value Reference Range Interpretation Comments Segs (test code = Segs) 56.2 45.0-75.0 [facility] HospitalMorhtvjZJSTSWJQYX1689-82-51 09:13:00 Test Item Value Reference Range Interpretation Comments Monocytes # (test code 0.4 See_Comment [Aut omated message] The = Monocytes #) system which generated this result tra nsmitted reference range : <=0.8. The reference r ondina was not used to int erpret this result as normal/abnormal . [facility] HospitalMaxqsqrDJVGPRJACS3197-61-37 09:13:00 Test Item Value Reference Range Interpretation Comments Lymphocytes (test code = Lymphocytes) 26.8 20.0-40.0 [facility] HospitalHjfwoymBOJOIYACDG4817-41-34 09:13:00 Test Item Value Reference Range Interpretation Comments Monocytes (test code = Monocytes) 8.7 2.0-12.0 [facility] HospitalQszlqljWTUWSFDOMR1861-83-53 09:13:00 Test Item Value Reference Range Interpretation Comments Basophils (test code = 2.1 See_Comment [Aut omated message] The Basophils) system which ge nerated this result tra nsmitted reference range : <=1.0. The reference r ondina was not used to int erpret this result as normal/abnormal . [facility] HospitalOspmginZGARHBLNAJ2513-53-69 09:13:00 Test Item Value Reference Range Interpretation Comments Eosinophils (test code = 6.2 See_Comment [A utomated message] The Eosinophils) system which ge nerated this result tra nsmitted reference range : <=4.0. The reference r ondina was not used to int erpret this result as normal/abnormal . [facility] HospitalLedaevvKYPAHJSJFP5483-62-82 09:13:00 Test Item Value Reference Range Interpretation Comments Basophils # (test code 0.1 See_Comment [Aut omated message] The = Basophils #) system which generated this result tra nsmitted reference range : <=0.2. The reference r ondina was not used to int erpret this result as normal/abnormal . [facility] HospitalSefepqcRWVUHXUKNV2840-78-90 09:13:00 Test Item Value Reference Range Interpretation Comments Eosinophils # (test code 0.3 See_Comment [A utomated message] The = Eosinophils #) system whic h generated this result tra nsmitted reference range : <=0.5. The reference r ondina was not used to int erpret this result as normal/abnormal . [facility] HospitalYtewpmuDZRYYQFMOV6988-11-66 09:13:00 Test Item Value Reference Range Interpretation Comments MCV (test code = MCV) 77.7 80.0-94.0 [facility] HospitalIfafafyGGBUCNZJFR8884-75-63 09:13:00 Test Item Value Reference Range Interpretation Comments Hgb (test code = Hgb) 10.5 14.0-18.0 [facility] HospitalUfnkhawTLHPMCTPIF6233-21-71 09:13:00 Test Item Value Reference Range Interpretation Comments Hct (test code = Hct) 33.2 42.0-54.0 [facility] HospitalUiyfhmtBPYHUDNTEY7813-34-24 09:13:00 Test Item Value Reference Range Interpretation Comments WBC (test code = WBC) 4.7 3.7-10.4 [facility] HospitalQngfqtqHAIYOYZDVG5364-14-15 09:13:00 Test Item Value Reference Range Interpretation Comments RBC (test code = RBC) 4.27 4.70-6.10 [facility] HospitalBrlrfymKWBTDIPOPH4988-42-63 09:13:00 Test Item Value Reference Range Interpretation Comments MCH (test code = MCH) 24.5 pg 27.0-31.0 [facility] HospitalSyihsrbBOTLVXBYOT8994-33-08 09:13:00 Test Item Value Reference Range Interpretation Comments Platelet (test code = Platelet) 267 133-450 [facility] HospitalYmecvjzDNLETWTHRO0643-84-48 09:13:00 Test Item Value Reference Range Interpretation Comments MPV (test code = MPV) 7.8 7.4-10.4 [facility] HospitalBtuuhyfVKGTMFQBBE0348-42-85 09:13:00 Test Item Value Reference Range Interpretation Comments MCHC (test code = MCHC) 31.5 32.0-36.0 [facility] HospitalGolmjgwGEOHNTTKLO8102-56-58 09:13:00 Test Item Value Reference Range Interpretation Comments RDW (test code = RDW) 19.2 11.5-14.5 [facility]2019-06-14 09:13:00 Test Item Value Reference Range Interpretation Comments Bili Indirect Unable to See_Comment [Automated (test code = Bili Calculate message] T he system Indirect) which generated this result transmitted reference range : <=1.0. The reference range was not used to interpret this result as normal/abnormal . [facility]2019-06-14 09:13:00 Test Item Value Reference Range Interpretation Comments Bili Direct (test code no gt See_Comment [Aut omated message] The = Bili Direct) system which generated this result tra nsmitted reference range : <=0.3. The reference r ondina was not used to int erpret this result as cassie l/abnormal. [facility]2019-06-14 09:13:00 Test Item Value Reference Range Interpretation Comments Total Protein (test code = Total 6.9 6.4-8.4 Protein) [facility]2019-06-14 09:13:00 Test Item Value Reference Range Interpretation Comments Albumin Lvl (test code = Albumin Lvl) 3.0 3.5-5.0 [facility]2019-06-14 09:13:00 Test Item Value Reference Range Interpretation Comments Globulin (test code = Globulin) 3.9 2.7-4.2 [facility]2019-06-14 09:13:00 Test Item Value Reference Range Interpretation Comments Alk Phos (test code = Alk Phos) 214 39-136 [facility]2019-06-14 09:13:00 Test Item Value Reference Range Interpretation Comments Bili Total (test code = Bili Total) 0.3 0.2-1.3 [facility]2019-06-14 09:13:00 Test Item Value Reference Range Interpretation Comments AST (test code = AST) 207 See_Comment [Auto mated message] The system which ge nerated this result transmit garrett reference range : <=37. The reference range was not used to interpr et this result as cassie l/abnormal. [facility] [employer] System ([place] [id number] 09:13:00 Test Item Value Reference Range Interpretation Comments A/G Ratio (test code = A/G Ratio) 0.8 1 0.7-1.6 [facility] System [place] [id number] 09:13:00 Test Item Value Reference Range Interpretation Comments ALT (test code = ALT) 148 See_Comment [Auto mated message] The system which ge nerated this result transmit garrett reference range : <=65. The reference range was not used to interpr et this result as cassie l/abnormal. [facility]LmxoywpCLSJGBJFWSYY6948-21-43 09:13:00 Test Item Value Reference Range Interpretation Comments AGAP (test code = AGAP) 11.2 10.0-20.0 [facility] HospitalJvqmjpoZJXIGPUAVIJS8973-82-67 09:13:00 Test Item Value Reference Range Interpretation Comments eGFR (test code = eGFR) 85 [facility] HospitalDqkxfvjVGMKRFDFNYWJ5529-55-35 09:13:00 Test Item Value Reference Range Interpretation Comments Creatinine Lvl (test code = Creatinine 0.96 0.50-1.40 Lvl) [facility] HospitalJujciuuUOGNGMKPNXAF0051-11-99 09:13:00 Test Item Value Reference Range Interpretation Comments Potassium Lvl (test code = Potassium 4.2 3.5-5.1 Lvl) [facility] HospitalJnbntwbOVRXDUHFMWYZ3266-66-73 09:13:00 Test Item Value Reference Range Interpretation Comments Sodium Lvl (test code = Sodium Lvl) 141 135-145 [facility] HospitalPnogzpxHNNPBWQUTWAV2327-06-02 09:13:00 Test Item Value Reference Range Interpretation Comments Chloride Lvl (test code = Chloride Lvl) 110 95-109 [facility] HospitalNcdkhxqBLJVTMMGHFGT2751-41-56 09:13:00 Test Item Value Reference Range Interpretation Comments CO2 (test code = CO2) 24 24-32 [facility] HospitalUqtdxvzCGFKBRENLOOJ5047-85-34 09:13:00 Test Item Value Reference Range Interpretation Comments BUN (test code = BUN) 19 7-22 [facility] HospitalHvryiqqTABLMTIPBBPA6083-00-91 09:13:00 Test Item Value Reference Range Interpretation Comments Glucose Lvl (test code = Glucose Lvl) 86 70-99 [facility] HospitalYqeejctWJNFPQZYKEJI5324-88-28 09:13:00 Test Item Value Reference Range Interpretation Comments Calcium Lvl (test code = Calcium Lvl) 9.0 8.5-10.5 [facility] HospitalMfeokroUZOOWZGGEO8960-41-01 09:13:00 Test Item Value Reference Range Interpretation Comments Microcyte (test code = 1+ *ABN*(08/16/18 Microcyte) 4:13 AM) [facility] HospitalArecnecSMVQYBPPTP7934-93-07 09:13:00 Test Item Value Reference Range Interpretation Comments Neutrophils # (test code = Neutrophils 2.7 1.5-8.1 #) [facility] HospitalKzoohhoELTCIGKEVO6681-31-19 09:13:00 Test Item Value Reference Range Interpretation Comments Lymphocytes # (test code = Lymphocytes 1.3 1.0-5.5 #) [facility] HospitalTkjuipkWVPSIKUNIQ9866-93-26 09:13:00 Test Item Value Reference Range Interpretation Comments Segs (test code = Segs) 56.2 45.0-75.0 [facility] HospitalEvvcekvEQGIQCTJVE9395-20-45 09:13:00 Test Item Value Reference Range Interpretation Comments Monocytes # (test code 0.4 See_Comment [Aut omated message] The = Monocytes #) system which generated this result tra nsmitted reference range : <=0.8. The reference r ondina was not used to int erpret this result as normal/abnormal . [facility] HospitalLyowesdBTOVLIPFIF6601-60-31 09:13:00 Test Item Value Reference Range Interpretation Comments Lymphocytes (test code = Lymphocytes) 26.8 20.0-40.0 [facility] HospitalRahhbwmZZIYFTXKDP7297-80-38 09:13:00 Test Item Value Reference Range Interpretation Comments Monocytes (test code = Monocytes) 8.7 2.0-12.0 [facility] HospitalKgtpfjjHBSHNMKWVM1509-15-61 09:13:00 Test Item Value Reference Range Interpretation Comments Basophils (test code = 2.1 See_Comment [Aut omated message] The Basophils) system which ge nerated this result tra nsmitted reference range : <=1.0. The reference r ondina was not used to int erpret this result as normal/abnormal . [facility] HospitalEvqcrvnPXGDLIFUHH7833-27-91 09:13:00 Test Item Value Reference Range Interpretation Comments Eosinophils (test code = 6.2 See_Comment [A utomated message] The Eosinophils) system which ge nerated this result tra nsmitted reference range : <=4.0. The reference r ondina was not used to int erpret this result as normal/abnormal . [facility] HospitalBqoehiiCMUUGJYVQI6263-30-36 09:13:00 Test Item Value Reference Range Interpretation Comments Basophils # (test code 0.1 See_Comment [Aut omated message] The = Basophils #) system which generated this result tra nsmitted reference range : <=0.2. The reference r ondina was not used to int erpret this result as normal/abnormal . [facility] HospitalCptnsltJUIHGTZLQS6800-71-33 09:13:00 Test Item Value Reference Range Interpretation Comments Eosinophils # (test code 0.3 See_Comment [A utomated message] The = Eosinophils #) system whic h generated this result tra nsmitted reference range : <=0.5. The reference r ondina was not used to int erpret this result as normal/abnormal . [facility] HospitalWcscelsAZDSCVHUEE2190-38-88 09:13:00 Test Item Value Reference Range Interpretation Comments MCV (test code = MCV) 77.7 80.0-94.0 [facility] HospitalAghbmyvUKGGAGUFUY4515-60-22 09:13:00 Test Item Value Reference Range Interpretation Comments Hgb (test code = Hgb) 10.5 14.0-18.0 [facility] HospitalRbbduvmNQINRFOJLO7810-84-39 09:13:00 Test Item Value Reference Range Interpretation Comments Hct (test code = Hct) 33.2 42.0-54.0 [facility] HospitalLrnipdcCMHCTDHTDL5356-85-19 09:13:00 Test Item Value Reference Range Interpretation Comments WBC (test code = WBC) 4.7 3.7-10.4 [facility] HospitalOayrvazDDVNXEGOJZ0494-45-32 09:13:00 Test Item Value Reference Range Interpretation Comments RBC (test code = RBC) 4.27 4.70-6.10 [facility] HospitalPqemqrkVSAZSOQNYE6661-48-54 09:13:00 Test Item Value Reference Range Interpretation Comments MCH (test code = MCH) 24.5 pg 27.0-31.0 [facility] HospitalNcojinsSCUJCZVIVA9867-10-75 09:13:00 Test Item Value Reference Range Interpretation Comments Platelet (test code = Platelet) 267 133-450 [facility] HospitalBbqrhjkNYAHEMRMVR7708-54-14 09:13:00 Test Item Value Reference Range Interpretation Comments MPV (test code = MPV) 7.8 7.4-10.4 [facility] HospitalKcdwtfcNIAUIBRBAD5702-63-83 09:13:00 Test Item Value Reference Range Interpretation Comments MCHC (test code = MCHC) 31.5 32.0-36.0 [facility] HospitalYgllhbgNERLNZPQRK2405-01-55 09:13:00 Test Item Value Reference Range Interpretation Comments RDW (test code = RDW) 19.2 11.5-14.5 [facility]2019-06-14 09:13:00 Test Item Value Reference Range Interpretation Comments Bili Indirect Unable to See_Comment [Automated (test code = Bili Calculate message] T he system Indirect) which generated this result transmitted reference range : <=1.0. The reference range was not used to interpret this result as normal/abnormal . [facility]2019-06-14 09:13:00 Test Item Value Reference Range Interpretation Comments Bili Direct (test code no gt See_Comment [Aut omated message] The = Bili Direct) system which generated this result tra nsmitted reference range : <=0.3. The reference r ondina was not used to int erpret this result as cassie l/abnormal. [facility]2019-06-14 09:13:00 Test Item Value Reference Range Interpretation Comments Total Protein (test code = Total 6.9 6.4-8.4 Protein) [facility]2019-06-14 09:13:00 Test Item Value Reference Range Interpretation Comments Albumin Lvl (test code = Albumin Lvl) 3.0 3.5-5.0 [facility]2019-06-14 09:13:00 Test Item Value Reference Range Interpretation Comments Globulin (test code = Globulin) 3.9 2.7-4.2 [facility]2019-06-14 09:13:00 Test Item Value Reference Range Interpretation Comments Alk Phos (test code = Alk Phos) 214 39-136 [facility]2019-06-14 09:13:00 Test Item Value Reference Range Interpretation Comments Bili Total (test code = Bili Total) 0.3 0.2-1.3 [place] 969579-06-14 09:13:00 Test Item Value Reference Range Interpretation Comments AST (test code = AST) 207 See_Comment [Auto mated message] The system which ge nerated this result transmit garrett reference range : <=37. The reference range was not used to interpr et this result as cassie l/abnormal. [facility] ([place] [id number] 09:13:00 Test Item Value Reference Range Interpretation Comments A/G Ratio (test code = A/G Ratio) 0.8 1 0.7-1.6 [facility] ([place] [id number] 09:13:00 Test Item Value Reference Range Interpretation Comments ALT (test code = ALT) 148 See_Comment [Auto mated message] The system which ge nerated this result transmit garrett reference range : <=65. The reference range was not used to interpr et this result as cassie l/abnormal. [facility] HospitalZykgbmuYILZIKXMVLUO3407-66-89 09:13:00 Test Item Value Reference Range Interpretation Comments AGAP (test code = AGAP) 11.2 10.0-20.0 [facility] HospitalChcziabCVRYFXZJMCWK2585-24-81 09:13:00 Test Item Value Reference Range Interpretation Comments eGFR (test code = eGFR) 85 [facility] HospitalRftafsyQQDAWFHOKYJQ8713-60-11 09:13:00 Test Item Value Reference Range Interpretation Comments Creatinine Lvl (test code = Creatinine 0.96 0.50-1.40 Lvl) [facility] HospitalYpkgzlhFWJZYNBWTFRK0737-81-37 09:13:00 Test Item Value Reference Range Interpretation Comments Potassium Lvl (test code = Potassium 4.2 3.5-5.1 Lvl) [facility] HospitalLzoyubiFXIULMCGQHPB2928-20-33 09:13:00 Test Item Value Reference Range Interpretation Comments Sodium Lvl (test code = Sodium Lvl) 141 135-145 [facility] HospitalDuscpzkZYFXSURFMNVZ1756-70-16 09:13:00 Test Item Value Reference Range Interpretation Comments Chloride Lvl (test code = Chloride Lvl) 110 95-109 [facility] HospitalPcftpdjVCLFSNZKPNPF4404-13-80 09:13:00 Test Item Value Reference Range Interpretation Comments CO2 (test code = CO2) 24 24-32 [facility] HospitalBxetipfKTWEKZVPHVAF2505-89-72 09:13:00 Test Item Value Reference Range Interpretation Comments BUN (test code = BUN) 19 7-22 [facility] HospitalNxmrxvkITKZIEBXEPNT7699-87-08 09:13:00 Test Item Value Reference Range Interpretation Comments Glucose Lvl (test code = Glucose Lvl) 86 70-99 [facility]GokmrwiICSJPIECJRIX7818-24-70 09:13:00 Test Item Value Reference Range Interpretation Comments Calcium Lvl (test code = Calcium Lvl) 9.0 8.5-10.5 [facility] HospitalRxuccjcRFNZIKCFNT0988-87-29 09:13:00 Test Item Value Reference Range Interpretation Comments Microcyte (test code = 1+ *ABN*(08/16/18 Microcyte) 4:13 AM) [facility] HospitalIlgyzpmUCJZGYLFTK0018-19-30 09:13:00 Test Item Value Reference Range Interpretation Comments Neutrophils # (test code = Neutrophils 2.7 1.5-8.1 #) [facility] HospitalJwedyfzXMYESFXZJZ9933-28-32 09:13:00 Test Item Value Reference Range Interpretation Comments Lymphocytes # (test code = Lymphocytes 1.3 1.0-5.5 #) [facility] HospitalQedxbnrDFYOTLKZQP8441-56-99 09:13:00 Test Item Value Reference Range Interpretation Comments Segs (test code = Segs) 56.2 45.0-75.0 [facility] HospitalHtiujrhBQFMPBITHH9548-19-81 09:13:00 Test Item Value Reference Range Interpretation Comments Monocytes # (test code 0.4 See_Comment [Aut omated message] The = Monocytes #) system which generated this result tra nsmitted reference range : <=0.8. The reference r ondina was not used to int erpret this result as normal/abnormal . [facility] HospitalBvvdvgwJHOCRRZDGX9339-80-45 09:13:00 Test Item Value Reference Range Interpretation Comments Lymphocytes (test code = Lymphocytes) 26.8 20.0-40.0 [facility] HospitalYyxdgiiNUPELPAEBN4183-68-60 09:13:00 Test Item Value Reference Range Interpretation Comments Monocytes (test code = Monocytes) 8.7 2.0-12.0 [facility] HospitalKvwidcxBWPWSHOVJF2080-87-26 09:13:00 Test Item Value Reference Range Interpretation Comments Basophils (test code = 2.1 See_Comment [Aut omated message] The Basophils) system which ge nerated this result tra nsmitted reference range : <=1.0. The reference r ondina was not used to int erpret this result as normal/abnormal . [facility] HospitalLlsnwtlCMRCAWIBCW3737-91-77 09:13:00 Test Item Value Reference Range Interpretation Comments Eosinophils (test code = 6.2 See_Comment [A utomated message] The Eosinophils) system which ge nerated this result tra nsmitted reference range : <=4.0. The reference r ondina was not used to int erpret this result as normal/abnormal . [facility] HospitalTbfztptYSQFPHHWZU5136-69-83 09:13:00 Test Item Value Reference Range Interpretation Comments Basophils # (test code 0.1 See_Comment [Aut omated message] The = Basophils #) system which generated this result tra nsmitted reference range : <=0.2. The reference r ondina was not used to int erpret this result as normal/abnormal . [facility] HospitalHusvfxsCGVYJWIBBM1317-46-58 09:13:00 Test Item Value Reference Range Interpretation Comments Eosinophils # (test code 0.3 See_Comment [A utomated message] The = Eosinophils #) system whic h generated this result tra nsmitted reference range : <=0.5. The reference r ondina was not used to int erpret this result as normal/abnormal . [facility] HospitalJoixzcpALEBQVMHST4320-54-02 09:13:00 Test Item Value Reference Range Interpretation Comments MCV (test code = MCV) 77.7 80.0-94.0 [facility] HospitalRlsixfkXCSZQZZEJI6374-87-82 09:13:00 Test Item Value Reference Range Interpretation Comments Hgb (test code = Hgb) 10.5 14.0-18.0 [facility] HospitalHwuqyzqAVMMUQZDRZ2646-45-05 09:13:00 Test Item Value Reference Range Interpretation Comments Hct (test code = Hct) 33.2 42.0-54.0 [facility] HospitalLkykxtdYPTRDYMKKR9294-52-20 09:13:00 Test Item Value Reference Range Interpretation Comments WBC (test code = WBC) 4.7 3.7-10.4 [facility] HospitalTtkllztYCBYTJKCQS0441-23-93 09:13:00 Test Item Value Reference Range Interpretation Comments RBC (test code = RBC) 4.27 4.70-6.10 [facility] HospitalKnsgcbpMYMOZGCKXA3985-16-87 09:13:00 Test Item Value Reference Range Interpretation Comments MCH (test code = MCH) 24.5 pg 27.0-31.0 [facility] HospitalPbxwzvgWBGKNKPRDL9003-28-29 09:13:00 Test Item Value Reference Range Interpretation Comments Platelet (test code = Platelet) 267 133-450 [facility] HospitalFnohnvjOTKJLVFZBC4279-69-21 09:13:00 Test Item Value Reference Range Interpretation Comments MPV (test code = MPV) 7.8 7.4-10.4 [facility] FrxgvfwLWHXSZXVLO4904-49-77 09:13:00 Test Item Value Reference Range Interpretation Comments MCHC (test code = MCHC) 31.5 32.0-36.0 [facility] IlrbhmrRVWTMYSQTH7478-23-86 09:13:00 Test Item Value Reference Range Interpretation Comments RDW (test code = RDW) 19.2 11.5-14.5 [facility] PsaavldZXOZLWBMSO9012-96-53 02:46:00 Test Item Value Reference Range Interpretation Comments [facility] HIV 4th GEN (test Negative *NA*(08/15/18 code = CDC HIV 4th 9:46 PM) GEN) [facility]landsUgbdefiPDQJLVYHHP6202-56-78 02:46:00 Test Item Value Reference Range Interpretation Comments [facility] HIV 4th GEN (test Negative *NA*(08/15/18 code = CDC HIV 4th 9:46 PM) GEN) [facility]landsKfiwrggNFVYFAEADX2135-77-50 02:46:00 Test Item Value Reference Range Interpretation Comments [facility] HIV 4th GEN (test Negative *NA*(08/15/18 code = CDC HIV 4th 9:46 PM) GEN) [facility] [employer] [id number] 02:44:00 Test Item Value Reference Range Interpretation Comments ABO/Rh (test code = ABO/Rh) A POS [facility] [employer] DYPUEEJ0198-67-71 02:44:00 Test Item Value Reference Range Interpretation Comments Antibody Scrn (test Negative (08/15/18 9:44 code = Antibody Scrn) PM) [facility] [employer] KMZKINV7851-29-99 02:44:00 Test Item Value Reference Range Interpretation Comments ABO/Rh (test code = ABO/Rh) A POS [facility] [employer] [id number] 02:44:00 Test Item Value Reference Range Interpretation Comments Antibody Scrn (test Negative (08/15/18 9:44 code = Antibody Scrn) PM) [facility] [employer] IBORWEZ6165-85-70 02:44:00 Test Item Value Reference Range Interpretation Comments ABO/Rh (test code = ABO/Rh) A POS [facility] [employer] BANK [id number] 02:44:00 Test Item Value Reference Range Interpretation Comments Antibody Scrn (test Negative (08/15/18 9:44 code = Antibody Scrn) PM) [facility] COLJULM1396-11-69 02:42:00 Test Item Value Reference Range Interpretation Comments Troponin-I (test code no gt See_Comment [Auto mated message] The = Troponin-I) system which g enerated this result transmit garrett reference range : <=0.40. The reference r ondina was not used to interpr et this result as cassie l/abnormal. [facility] [id number] 02:42:00 Test Item Value Reference Range Interpretation Comments Lipase Lvl (test code = Lipase Lvl) 165 73-393 [facility] [id number] 02:42:00 Test Item Value Reference Range Interpretation Comments Bili Indirect (test 0.2 See_Comment [Automa garrett message] The code = Bili Indirect) system which generated this result tra nsmitted reference range : <=1.0. The reference r ondina was not used to int erpret this result as normal/abnormal . [facility] [id number] 02:42:00 Test Item Value Reference Range Interpretation Comments Bili Total (test code = Bili Total) 0.3 0.2-1.3 [facility] [id number] 02:42:00 Test Item Value Reference Range Interpretation Comments Alk Phos (test code = Alk Phos) 203 39-136 [facility] [id number] 02:42:00 Test Item Value Reference Range Interpretation Comments AST (test code = AST) 194 See_Comment [Auto mated message] The system which ge nerated this result transmit garrett reference range : <=37. The reference range was not used to interpr et this result as cassie l/abnormal. [facility] [employer] [id number] 02:42:00 Test Item Value Reference Range Interpretation Comments ALT (test code = ALT) 109 See_Comment [Auto mated message] The system which ge nerated this result transmit garrett reference range : <=65. The reference range was not used to interpr et this result as cassie l/abnormal. [facility] [employer] [id number] 02:42:00 Test Item Value Reference Range Interpretation Comments Bili Direct (test code 0.1 See_Comment [Aut omated message] The = Bili Direct) system which generated this result tra nsmitted reference range : <=0.3. The reference r ondina was not used to int erpret this result as cassie l/abnormal. [facility]2019-06-14 02:42:00 Test Item Value Reference Range Interpretation Comments Albumin Lvl (test code = Albumin Lvl) 3.0 3.5-5.0 [facility]2019-06-14 02:42:00 Test Item Value Reference Range Interpretation Comments Total Protein (test code = Total 6.9 6.4-8.4 Protein) [facility]2019-06-14 02:42:00 Test Item Value Reference Range Interpretation Comments Globulin (test code = Globulin) 3.9 2.7-4.2 [facility]2019-06-14 02:42:00 Test Item Value Reference Range Interpretation Comments A/G Ratio (test code = A/G Ratio) 0.8 1 0.7-1.6 [facility]2019-06-14 02:42:00 Test Item Value Reference Range Interpretation Comments eGFR (test code = eGFR) 68 [facility]2019-06-14 02:42:00 Test Item Value Reference Range Interpretation Comments Potassium Lvl (test code = Potassium 3.9 3.5-5.1 Lvl) [facility]2019-06-14 02:42:00 Test Item Value Reference Range Interpretation Comments Sodium Lvl (test code = Sodium Lvl) 139 135-145 [facility]2019-06-14 02:42:00 Test Item Value Reference Range Interpretation Comments Calcium Lvl (test code = Calcium Lvl) 8.6 8.5-10.5 [facility]2019-06-14 02:42:00 Test Item Value Reference Range Interpretation Comments CO2 (test code = CO2) 25 24-32 [facility]2019-06-14 02:42:00 Test Item Value Reference Range Interpretation Comments Chloride Lvl (test code = Chloride Lvl) 105 95-109 [facility]2019-06-14 02:42:00 Test Item Value Reference Range Interpretation Comments Creatinine Lvl (test code = Creatinine 1.16 0.50-1.40 Lvl) [facility]2019-06-14 02:42:00 Test Item Value Reference Range Interpretation Comments BUN (test code = BUN) 21 7-22 [facility]2019-06-14 02:42:00 Test Item Value Reference Range Interpretation Comments Glucose Lvl (test code = Glucose Lvl) 88 70-99 [facility]2019-06-14 02:42:00 Test Item Value Reference Range Interpretation Comments AGAP (test code = AGAP) 12.9 10.0-20.0 [facility]AyvafddEMBXSAPABV3595-68-16 02:42:00 Test Item Value Reference Range Interpretation Comments RDW (test code = RDW) 19.1 11.5-14.5 [facility] HospitalSckctucONAIFTWFKX8131-27-48 02:42:00 Test Item Value Reference Range Interpretation Comments MPV (test code = MPV) 8.0 7.4-10.4 [facility] HospitalIwhpkalOTLHYNXZHL5358-10-92 02:42:00 Test Item Value Reference Range Interpretation Comments Platelet (test code = Platelet) 259 133-450 [facility] HospitalYfmqaazYVABWOCFIK0969-35-90 02:42:00 Test Item Value Reference Range Interpretation Comments MCHC (test code = MCHC) 31.2 32.0-36.0 [facility] HospitalGrylfbgICFDMFGGJQ9921-78-26 02:42:00 Test Item Value Reference Range Interpretation Comments Hct (test code = Hct) 33.3 42.0-54.0 [facility] HospitalTdrwfqbRQVIDUQIFH9178-33-68 02:42:00 Test Item Value Reference Range Interpretation Comments Hgb (test code = Hgb) 10.4 14.0-18.0 [facility] HospitalAfnbdphUOJGHPBCYU5562-64-12 02:42:00 Test Item Value Reference Range Interpretation Comments RBC (test code = RBC) 4.26 4.70-6.10 [facility] HospitalIdvdamzGGLMLCMMLY2414-75-25 02:42:00 Test Item Value Reference Range Interpretation Comments MCV (test code = MCV) 78.2 80.0-94.0 [facility] HospitalCzcbvguFQZWKLDUFJ9156-97-63 02:42:00 Test Item Value Reference Range Interpretation Comments MCH (test code = MCH) 24.4 pg 27.0-31.0 [facility] HospitalKzrdmwsVUDGXYIZVE8577-13-74 02:42:00 Test Item Value Reference Range Interpretation Comments WBC (test code = WBC) 6.0 3.7-10.4 [facility] HospitalZjlkqldMTHETCVTZN8884-61-52 02:42:00 Test Item Value Reference Range Interpretation Comments Neutrophils # (test code = Neutrophils 4.0 1.5-8.1 #) [facility] HospitalCmbxuryXBNIMVITJV8171-70-55 02:42:00 Test Item Value Reference Range Interpretation Comments Lymphocytes # (test code = Lymphocytes 1.3 1.0-5.5 #) [facility] HospitalBdiaqnbERFTMBVHJY4549-56-08 02:42:00 Test Item Value Reference Range Interpretation Comments Basophils (test code = 1.4 See_Comment [Aut omated message] The Basophils) system which ge nerated this result tra nsmitted reference range : <=1.0. The reference r ondina was not used to int erpret this result as normal/abnormal . [facility] HospitalStoipgcNKWZMSADQW3128-20-35 02:42:00 Test Item Value Reference Range Interpretation Comments Eosinophils (test code = 3.5 See_Comment [A utomated message] The Eosinophils) system which ge nerated this result tra nsmitted reference range : <=4.0. The reference r ondina was not used to int erpret this result as normal/abnormal . [facility] HospitalFazkmhuWGCKQZCNXP2154-94-37 02:42:00 Test Item Value Reference Range Interpretation Comments Lymphocytes (test code = Lymphocytes) 21.4 20.0-40.0 [facility] HospitalGbtkztrCAHLXPCJNY8648-77-59 02:42:00 Test Item Value Reference Range Interpretation Comments Monocytes (test code = Monocytes) 7.3 2.0-12.0 [facility] HospitalPozriekPQLNVMLFNI6466-57-33 02:42:00 Test Item Value Reference Range Interpretation Comments Basophils # (test code 0.1 See_Comment [Aut omated message] The = Basophils #) system which generated this result tra nsmitted reference range : <=0.2. The reference r ondina was not used to int erpret this result as normal/abnormal . [facility] HospitalBfupkqoPCMLWNEHUZ9798-32-03 02:42:00 Test Item Value Reference Range Interpretation Comments Microcyte (test code = 1+ *ABN*(08/15/18 Microcyte) 9:42 PM) [facility] HospitalUnhfmpuMSLRIBUARV5501-25-51 02:42:00 Test Item Value Reference Range Interpretation Comments Monocytes # (test code 0.4 See_Comment [Aut omated message] The = Monocytes #) system which generated this result tra nsmitted reference range : <=0.8. The reference r ondina was not used to int erpret this result as normal/abnormal . [facility]YlecpytQTPYCICEDH9877-63-02 02:42:00 Test Item Value Reference Range Interpretation Comments Eosinophils # (test code 0.2 See_Comment [A utomated message] The = Eosinophils #) system whic h generated this result tra nsmitted reference range : <=0.5. The reference r ondina was not used to int erpret this result as normal/abnormal . [facility] CenterNqmkyrxNYERWLZJDV2912-79-81 02:42:00 Test Item Value Reference Range Interpretation Comments Segs (test code = Segs) 66.4 45.0-75.0 [facility] HospitalXwlqjflRCCBSRSCQT9775-37-31 02:42:00 Test Item Value Reference Range Interpretation Comments PT (test code = PT) 13.5 s 12.0-14.7 [facility] HospitalVwdapaeDOXWXXIXPT1510-02-94 02:42:00 Test Item Value Reference Range Interpretation Comments PTT (test code = PTT) 28.8 s 22.9-35.8 [facility] CenterAayanzvYZSYGQYCFE6806-64-44 02:42:00 Test Item Value Reference Range Interpretation Comments INR (test code = INR) 1.05 1 0.85-1.17 [facility] MPQCZQB4680-86-68 02:42:00 Test Item Value Reference Range Interpretation Comments Troponin-I (test code no gt See_Comment [Auto mated message] The = Troponin-I) system which g enerated this result transmit garrett reference range : <=0.40. The reference r ondina was not used to interpr et this result as cassie l/abnormal. [facility] [employer] ([place] [id number] 02:42:00 Test Item Value Reference Range Interpretation Comments Lipase Lvl (test code = Lipase Lvl) 165 73-393 [facility] [id number] 02:42:00 Test Item Value Reference Range Interpretation Comments Bili Indirect (test 0.2 See_Comment [Automa garrett message] The code = Bili Indirect) system which generated this result tra nsmitted reference range : <=1.0. The reference r ondina was not used to int erpret this result as normal/abnormal . [facility]2019-06-14 02:42:00 Test Item Value Reference Range Interpretation Comments Bili Total (test code = Bili Total) 0.3 0.2-1.3 [facility]2019-06-14 02:42:00 Test Item Value Reference Range Interpretation Comments Alk Phos (test code = Alk Phos) 203 39-136 [facility]2019-06-14 02:42:00 Test Item Value Reference Range Interpretation Comments AST (test code = AST) 194 See_Comment [Auto mated message] The system which ge nerated this result transmit garrett reference range : <=37. The reference range was not used to interpr et this result as cassie l/abnormal. [facility]2019-06-14 02:42:00 Test Item Value Reference Range Interpretation Comments ALT (test code = ALT) 109 See_Comment [Auto mated message] The system which ge nerated this result transmit garrett reference range : <=65. The reference range was not used to interpr et this result as cassie l/abnormal. [facility]2019-06-14 02:42:00 Test Item Value Reference Range Interpretation Comments Bili Direct (test code 0.1 See_Comment [Aut omated message] The = Bili Direct) system which generated this result tra nsmitted reference range : <=0.3. The reference r ondina was not used to int erpret this result as cassie l/abnormal. [facility]2019-06-14 02:42:00 Test Item Value Reference Range Interpretation Comments Albumin Lvl (test code = Albumin Lvl) 3.0 3.5-5.0 [place] 969579-06-14 02:42:00 Test Item Value Reference Range Interpretation Comments Total Protein (test code = Total 6.9 6.4-8.4 Protein) [facility]2019-06-14 02:42:00 Test Item Value Reference Range Interpretation Comments Globulin (test code = Globulin) 3.9 2.7-4.2 [place] 969579-06-14 02:42:00 Test Item Value Reference Range Interpretation Comments A/G Ratio (test code = A/G Ratio) 0.8 1 0.7-1.6 [facility]2019-06-14 02:42:00 Test Item Value Reference Range Interpretation Comments eGFR (test code = eGFR) 68 [facility]2019-06-14 02:42:00 Test Item Value Reference Range Interpretation Comments Potassium Lvl (test code = Potassium 3.9 3.5-5.1 Lvl) [facility]2019-06-14 02:42:00 Test Item Value Reference Range Interpretation Comments Sodium Lvl (test code = Sodium Lvl) 139 135-145 [facility]2019-06-14 02:42:00 Test Item Value Reference Range Interpretation Comments Calcium Lvl (test code = Calcium Lvl) 8.6 8.5-10.5 [facility]2019-06-14 02:42:00 Test Item Value Reference Range Interpretation Comments CO2 (test code = CO2) 25 24-32 [facility]2019-06-14 02:42:00 Test Item Value Reference Range Interpretation Comments Chloride Lvl (test code = Chloride Lvl) 105 95-109 [facility]2019-06-14 02:42:00 Test Item Value Reference Range Interpretation Comments Creatinine Lvl (test code = Creatinine 1.16 0.50-1.40 Lvl) [facility]2019-06-14 02:42:00 Test Item Value Reference Range Interpretation Comments BUN (test code = BUN) 21 7-22 [place] 969579-06-14 02:42:00 Test Item Value Reference Range Interpretation Comments Glucose Lvl (test code = Glucose Lvl) 88 70-99 [facility]2019-06-14 02:42:00 Test Item Value Reference Range Interpretation Comments AGAP (test code = AGAP) 12.9 10.0-20.0 [facility] HospitalVvzwombRHJKIIGXRY6068-72-01 02:42:00 Test Item Value Reference Range Interpretation Comments RDW (test code = RDW) 19.1 11.5-14.5 [facility] HospitalJsonyquXBSYQUAESQ2561-21-24 02:42:00 Test Item Value Reference Range Interpretation Comments MPV (test code = MPV) 8.0 7.4-10.4 [facility] HospitalGcukiujMPHSGWIRWJ1696-54-95 02:42:00 Test Item Value Reference Range Interpretation Comments Platelet (test code = Platelet) 259 133-450 [facility] HospitalUvdkvpbLWNPRPPMVQ0391-59-37 02:42:00 Test Item Value Reference Range Interpretation Comments MCHC (test code = MCHC) 31.2 32.0-36.0 [facility] HospitalVwdbxamZBNOUYROXF3008-61-50 02:42:00 Test Item Value Reference Range Interpretation Comments Hct (test code = Hct) 33.3 42.0-54.0 [facility] HospitalEcdswkeTLRUHECXJE7159-18-28 02:42:00 Test Item Value Reference Range Interpretation Comments Hgb (test code = Hgb) 10.4 14.0-18.0 [facility] HospitalLvnufafQUYHUMGJWE6942-53-14 02:42:00 Test Item Value Reference Range Interpretation Comments RBC (test code = RBC) 4.26 4.70-6.10 [facility] HospitalVgcqharYNJSFOZAFU7475-85-88 02:42:00 Test Item Value Reference Range Interpretation Comments MCV (test code = MCV) 78.2 80.0-94.0 [facility] HospitalRxpiahoRNUJDYMWLW3362-15-00 02:42:00 Test Item Value Reference Range Interpretation Comments MCH (test code = MCH) 24.4 pg 27.0-31.0 [facility] HospitalBjxbfpbQTDWGIOZPC0761-82-54 02:42:00 Test Item Value Reference Range Interpretation Comments WBC (test code = WBC) 6.0 3.7-10.4 [facility] HospitalFxiloudTCRLROZVDV0358-26-41 02:42:00 Test Item Value Reference Range Interpretation Comments Neutrophils # (test code = Neutrophils 4.0 1.5-8.1 #) [facility] HospitalYshsfuaEQCFLNASCI8859-68-60 02:42:00 Test Item Value Reference Range Interpretation Comments Lymphocytes # (test code = Lymphocytes 1.3 1.0-5.5 #) [facility] HospitalLwkdlaoELFAEUUZUU8033-41-47 02:42:00 Test Item Value Reference Range Interpretation Comments Basophils (test code = 1.4 See_Comment [Aut omated message] The Basophils) system which ge nerated this result tra nsmitted reference range : <=1.0. The reference r ondina was not used to int erpret this result as normal/abnormal . [facility] HospitalAuvdevsSZLAFMOMRS1459-90-99 02:42:00 Test Item Value Reference Range Interpretation Comments Eosinophils (test code = 3.5 See_Comment [A utomated message] The Eosinophils) system which ge nerated this result tra nsmitted reference range : <=4.0. The reference r ondina was not used to int erpret this result as normal/abnormal . [facility] HospitalCcqkpxoATJNSLKRBF1100-62-64 02:42:00 Test Item Value Reference Range Interpretation Comments Lymphocytes (test code = Lymphocytes) 21.4 20.0-40.0 [facility] HospitalFilfzyoNIZLUXCXCC4365-45-47 02:42:00 Test Item Value Reference Range Interpretation Comments Monocytes (test code = Monocytes) 7.3 2.0-12.0 [facility] HospitalUpzwcjlMZXXPALECT5840-58-34 02:42:00 Test Item Value Reference Range Interpretation Comments Basophils # (test code 0.1 See_Comment [Aut omated message] The = Basophils #) system which generated this result tra nsmitted reference range : <=0.2. The reference r ondina was not used to int erpret this result as normal/abnormal . [facility] HospitalHjlwseaNKNQVXCXDU6225-95-86 02:42:00 Test Item Value Reference Range Interpretation Comments Microcyte (test code = 1+ *ABN*(08/15/18 Microcyte) 9:42 PM) [facility] HospitalSqrwyvdVBZRSLCTSW4248-00-83 02:42:00 Test Item Value Reference Range Interpretation Comments Monocytes # (test code 0.4 See_Comment [Aut omated message] The = Monocytes #) system which generated this result tra nsmitted reference range : <=0.8. The reference r ondina was not used to int erpret this result as normal/abnormal . [facility] HospitalUyffnyrSPFGILRUFA3048-27-30 02:42:00 Test Item Value Reference Range Interpretation Comments Eosinophils # (test code 0.2 See_Comment [A utomated message] The = Eosinophils #) system whic h generated this result tra nsmitted reference range : <=0.5. The reference r ondina was not used to int erpret this result as normal/abnormal . [facility] HospitalPlglqlfUUPRBNLSES3964-31-87 02:42:00 Test Item Value Reference Range Interpretation Comments Segs (test code = Segs) 66.4 45.0-75.0 [facility] HospitalIawjeqxAFDVUPDNJN5041-06-59 02:42:00 Test Item Value Reference Range Interpretation Comments PT (test code = PT) 13.5 s 12.0-14.7 [facility] HospitalDqwryojURFIWVZBZE4231-74-15 02:42:00 Test Item Value Reference Range Interpretation Comments PTT (test code = PTT) 28.8 s 22.9-35.8 [facility] CenterAvowliuAJUFDIXACM4930-73-38 02:42:00 Test Item Value Reference Range Interpretation Comments INR (test code = INR) 1.05 1 0.85-1.17 [facility]ARD[facility] [id number] 02:42:00 Test Item Value Reference Range Interpretation Comments Troponin-I (test code no gt See_Comment [Auto mated message] The = Troponin-I) system which g enerated this result transmit garrett reference range : <=0.40. The reference r ondina was not used to interpr et this result as cassie l/abnormal. [facility]2019-06-14 02:42:00 Test Item Value Reference Range Interpretation Comments Lipase Lvl (test code = Lipase Lvl) 165 73-393 [facility]2019-06-14 02:42:00 Test Item Value Reference Range Interpretation Comments Bili Indirect (test 0.2 See_Comment [Automa garrett message] The code = Bili Indirect) system which generated this result tra nsmitted reference range : <=1.0. The reference r ondina was not used to int erpret this result as normal/abnormal . [facility]2019-06-14 02:42:00 Test Item Value Reference Range Interpretation Comments Bili Total (test code = Bili Total) 0.3 0.2-1.3 [facility]2019-06-14 02:42:00 Test Item Value Reference Range Interpretation Comments Alk Phos (test code = Alk Phos) 203 39-136 [facility]2019-06-14 02:42:00 Test Item Value Reference Range Interpretation Comments AST (test code = AST) 194 See_Comment [Auto mated message] The system which ge nerated this result transmit garrett reference range : <=37. The reference range was not used to interpr et this result as cassie l/abnormal. [facility]2019-06-14 02:42:00 Test Item Value Reference Range Interpretation Comments ALT (test code = ALT) 109 See_Comment [Auto mated message] The system which ge nerated this result transmit garrett reference range : <=65. The reference range was not used to interpr et this result as cassie l/abnormal. [facility]2019-06-14 02:42:00 Test Item Value Reference Range Interpretation Comments Bili Direct (test code 0.1 See_Comment [Aut omated message] The = Bili Direct) system which generated this result tra nsmitted reference range : <=0.3. The reference r ondina was not used to int erpret this result as cassie l/abnormal. [facility]2019-06-14 02:42:00 Test Item Value Reference Range Interpretation Comments Albumin Lvl (test code = Albumin Lvl) 3.0 3.5-5.0 [facility]2019-06-14 02:42:00 Test Item Value Reference Range Interpretation Comments Total Protein (test code = Total 6.9 6.4-8.4 Protein) [facility]2019-06-14 02:42:00 Test Item Value Reference Range Interpretation Comments Globulin (test code = Globulin) 3.9 2.7-4.2 [facility]2019-06-14 02:42:00 Test Item Value Reference Range Interpretation Comments A/G Ratio (test code = A/G Ratio) 0.8 1 0.7-1.6 [facility]2019-06-14 02:42:00 Test Item Value Reference Range Interpretation Comments eGFR (test code = eGFR) 68 [facility]2019-06-14 02:42:00 Test Item Value Reference Range Interpretation Comments Potassium Lvl (test code = Potassium 3.9 3.5-5.1 Lvl) [facility]2019-06-14 02:42:00 Test Item Value Reference Range Interpretation Comments Sodium Lvl (test code = Sodium Lvl) 139 135-145 [facility]2019-06-14 02:42:00 Test Item Value Reference Range Interpretation Comments Calcium Lvl (test code = Calcium Lvl) 8.6 8.5-10.5 [facility]2019-06-14 02:42:00 Test Item Value Reference Range Interpretation Comments CO2 (test code = CO2) 25 24-32 [facility]2019-06-14 02:42:00 Test Item Value Reference Range Interpretation Comments Chloride Lvl (test code = Chloride Lvl) 105 95-109 [facility]2019-06-14 02:42:00 Test Item Value Reference Range Interpretation Comments Creatinine Lvl (test code = Creatinine 1.16 0.50-1.40 Lvl) [facility]2019-06-14 02:42:00 Test Item Value Reference Range Interpretation Comments BUN (test code = BUN) 21 7-22 [facility]2019-06-14 02:42:00 Test Item Value Reference Range Interpretation Comments Glucose Lvl (test code = Glucose Lvl) 88 70-99 [facility]2019-06-14 02:42:00 Test Item Value Reference Range Interpretation Comments AGAP (test code = AGAP) 12.9 10.0-20.0 [facility] HospitalWgbddgaECCDIZRMRK6209-58-79 02:42:00 Test Item Value Reference Range Interpretation Comments RDW (test code = RDW) 19.1 11.5-14.5 [facility] HospitalCnxssakJAFMXOJDPF8224-36-83 02:42:00 Test Item Value Reference Range Interpretation Comments MPV (test code = MPV) 8.0 7.4-10.4 [facility] HospitalUipwuocLZEJDFKSHS8902-23-77 02:42:00 Test Item Value Reference Range Interpretation Comments Platelet (test code = Platelet) 259 133-450 [facility] HospitalYjwegabVEMNHLCPBS9408-84-30 02:42:00 Test Item Value Reference Range Interpretation Comments MCHC (test code = MCHC) 31.2 32.0-36.0 [facility] HospitalViprodeNPMVUJMKYA3641-97-47 02:42:00 Test Item Value Reference Range Interpretation Comments Hct (test code = Hct) 33.3 42.0-54.0 [facility] HospitalQcnnalvUUTTCQPYYE8774-38-42 02:42:00 Test Item Value Reference Range Interpretation Comments Hgb (test code = Hgb) 10.4 14.0-18.0 [facility] HospitalGmhuzikSQJLMUUGED9158-17-80 02:42:00 Test Item Value Reference Range Interpretation Comments RBC (test code = RBC) 4.26 4.70-6.10 [facility] HospitalHlspzojRGEEVGYSKB6007-41-98 02:42:00 Test Item Value Reference Range Interpretation Comments MCV (test code = MCV) 78.2 80.0-94.0 [facility] HospitalQtmbbbbOYHTRWWNES1369-74-42 02:42:00 Test Item Value Reference Range Interpretation Comments MCH (test code = MCH) 24.4 pg 27.0-31.0 [facility] HospitalWsgxxytLBTMCCEBZE5416-77-90 02:42:00 Test Item Value Reference Range Interpretation Comments WBC (test code = WBC) 6.0 3.7-10.4 [facility] HospitalRyegeamUDPVCMPDVW5231-11-33 02:42:00 Test Item Value Reference Range Interpretation Comments Neutrophils # (test code = Neutrophils 4.0 1.5-8.1 #) [facility] HospitalQsvwbrrHWGSRFPGSV8467-41-19 02:42:00 Test Item Value Reference Range Interpretation Comments Lymphocytes # (test code = Lymphocytes 1.3 1.0-5.5 #) [facility] HospitalEhjlejxMTBARCWNXK8220-62-48 02:42:00 Test Item Value Reference Range Interpretation Comments Basophils (test code = 1.4 See_Comment [Aut omated message] The Basophils) system which ge nerated this result tra nsmitted reference range : <=1.0. The reference r ondina was not used to int erpret this result as normal/abnormal . [facility] HospitalWwwjdqqAPUKORPJMA0618-04-32 02:42:00 Test Item Value Reference Range Interpretation Comments Eosinophils (test code = 3.5 See_Comment [A utomated message] The Eosinophils) system which ge nerated this result tra nsmitted reference range : <=4.0. The reference r ondina was not used to int erpret this result as normal/abnormal . [facility]CsadrifRWIZHYKJDJ9748-[facility]-14 02:42:00 Test Item Value Reference Range Interpretation Comments Lymphocytes (test code = Lymphocytes) 21.4 20.0-40.0 [facility] HospitalHrbejwnRWAZWQQSDW3244-01-54 02:42:00 Test Item Value Reference Range Interpretation Comments Monocytes (test code = Monocytes) 7.3 2.0-12.0 [facility] HospitalIvdwuptBHLJXSJKEE2990-81-36 02:42:00 Test Item Value Reference Range Interpretation Comments Basophils # (test code 0.1 See_Comment [Aut omated message] The = Basophils #) system which generated this result tra nsmitted reference range : <=0.2. The reference r ondina was not used to int erpret this result as normal/abnormal . [facility] HospitalAwsntvjRXUJIDKPID8780-00-42 02:42:00 Test Item Value Reference Range Interpretation Comments Microcyte (test code = 1+ *ABN*(08/15/18 Microcyte) 9:42 PM) [facility] HospitalMueoujtJULOPLPPUP1625-08-83 02:42:00 Test Item Value Reference Range Interpretation Comments Monocytes # (test code 0.4 See_Comment [Aut omated message] The = Monocytes #) system which generated this result tra nsmitted reference range : <=0.8. The reference r ondina was not used to int erpret this result as normal/abnormal . [facility] HospitalUsotzrbGHDJKHCNGV3267-76-22 02:42:00 Test Item Value Reference Range Interpretation Comments Eosinophils # (test code 0.2 See_Comment [A utomated message] The = Eosinophils #) system whic h generated this result tra nsmitted reference range : <=0.5. The reference r ondina was not used to int erpret this result as normal/abnormal . [facility] HospitalCckcyggMKUCEVXQOM6278-31-02 02:42:00 Test Item Value Reference Range Interpretation Comments Segs (test code = Segs) 66.4 45.0-75.0 [facility] HospitalMsjkhcmTHXBWXVXBH7445-43-09 02:42:00 Test Item Value Reference Range Interpretation Comments PT (test code = PT) 13.5 s 12.0-14.7 [facility] HospitalAhshnzrQAOPIBDKSZ4153-32-46 02:42:00 Test Item Value Reference Range Interpretation Comments PTT (test code = PTT) 28.8 s 22.9-35.8 [facility] HospitalNgydpxpDCJYBBIIOM6917-30-01 02:42:00 Test Item Value Reference Range Interpretation Comments INR (test code = INR) 1.05 1 0.85-1.17 [facility] Gixhwgwgw1644-04-72 20:00:00 Test Item Value Reference Range Interpretation Comments Culture: Anaerobic (test Culture In Progress code = Culture: Anaerobic) [facility]lands[facility]ram Stain Fxefdu8041-50-17 20:00:00 Test Item Value Reference Range Interpretation Comments Gram Stain Report Rare WBC's No Organisms (test code = Gram Seen Stain Report) [facility]lands[facility]: Aspirate/Body Fluid/Xlrkew1486-55-69 20:00:00 Test Item Value Reference Range Interpretation Comments Culture: Aspirate/Body No Growth; Holding Fluid/Tissue (test code = Culture: Aspirate/Body Fluid/Tissue) [facility]lands[facility]: Hpaoqjjba5272-59-58 20:00:00 Test Item Value Reference Range Interpretation Comments Culture: Anaerobic (test Culture In Progress code = Culture: Anaerobic) [facility] Iitbfe5907-70-19 20:00:00 Test Item Value Reference Range Interpretation Comments Gram Stain Report Rare WBC's No Organisms (test code = Gram Seen Stain Report) [facility]Culture[facility] Aspirate/Body Fluid/Hxcwac7543-65-98 20:00:00 Test Item Value Reference Range Interpretation Comments Culture: Aspirate/Body No Growth; Holding Fluid/Tissue (test code = Culture: Aspirate/Body Fluid/Tissue) [facility]Culture: Oxwhmwskl1017-91-73 20:00:00 Test Item Value Reference Range Interpretation Comments Culture: Anaerobic (test Culture In Progress code = Culture: Anaerobic) [facility]landsGram [facility] Mqldow5160-61-35 20:00:00 Test Item Value Reference Range Interpretation Comments Gram Stain Report Rare WBC's No Organisms (test code = Gram Seen Stain Report) [facility]lands[facility]: Aspirate/Body Fluid/Qmalxz8422-17-26 20:00:00 Test Item Value Reference Range Interpretation Comments Culture: Aspirate/Body No Growth; Holding Fluid/Tissue (test code = Culture: Aspirate/Body Fluid/Tissue) [facility]Culture: Mlolhcgok4539-49-40 15:00:00 Test Item Value Reference Range Interpretation Comments Culture: Anaerobic No Anaerobes Isolated (test code = Culture: After 2 Days Anaerobic) [facility]landsGram Stain Mdupdx2988-19-54 15:00:00 Test Item Value Reference Range Interpretation Comments Gram Stain Report No Wbc'S Or Organisms (test code = Gram Seen Stain Report) [facility]Culture: Aspirate/Body Fluid/Glltuo7026-56-99 15:00:00 Test Item Value Reference Range Interpretation Comments Culture: 48 Hour Report - No Aspirate/Body Growth, Holding Fluid/Tissue (test code = Culture: Aspirate/Body Fluid/Tissue) [facility]Culture: Toqymrbzw9677-36-44 15:00:00 Test Item Value Reference Range Interpretation Comments Culture: Anaerobic No Anaerobes Isolated (test code = Culture: After 2 Days Anaerobic) [facility]annG[facility] Bksgsk8063-88-70 15:00:00 Test Item Value Reference Range Interpretation Comments Gram Stain Report No Wbc'S Or Organisms (test code = Gram Seen Stain Report) [facility]: Aspirate/Body Fluid/Ktgwbp4472-62-55 15:00:00 Test Item Value Reference Range Interpretation Comments Culture: 48 Hour Report - No Aspirate/Body Growth, Holding Fluid/Tissue (test code = Culture: Aspirate/Body Fluid/Tissue) [facility]lands[facility]: Xjsztdgjn4641-15-27 15:00:00 Test Item Value Reference Range Interpretation Comments Culture: Anaerobic No Anaerobes Isolated (test code = Culture: After 2 Days Anaerobic) [facility]landsGram Stain Nrgcvr7913-65-01 15:00:00 Test Item Value Reference Range Interpretation Comments Gram Stain Report No Wbc'S Or Organisms (test code = Gram Seen Stain Report) [facility]lands[facility]: Aspirate/Body Fluid/Dfblbw0430-08-06 15:00:00 Test Item Value Reference Range Interpretation Comments Culture: 48 Hour Report - No Aspirate/Body Growth, Holding Fluid/Tissue (test code = Culture: Aspirate/Body Fluid/Tissue) [facility]2019-04-01 10:50:00 Test Item Value Reference Range Interpretation Comments Calcium Lvl (test code = Calcium Lvl) 7.7 8.5-10.5 [facility]2019-04-01 10:50:00 Test Item Value Reference Range Interpretation Comments Potassium Lvl (test code = Potassium 3.6 3.5-5.1 Lvl) [facility]2019-04-01 10:50:00 Test Item Value Reference Range Interpretation Comments Chloride Lvl (test code = Chloride Lvl) 113 95-109 [facility]2019-04-01 10:50:00 Test Item Value Reference Range Interpretation Comments Sodium Lvl (test code = Sodium Lvl) 144 135-145 [facility]2019-04-01 10:50:00 Test Item Value Reference Range Interpretation Comments Creatinine Lvl (test code = Creatinine 0.86 0.50-1.40 Lvl) [facility]2019-04-01 10:50:00 Test Item Value Reference Range Interpretation Comments eGFR (test code = eGFR) 94 [facility]2019-04-01 10:50:00 Test Item Value Reference Range Interpretation Comments CO2 (test code = CO2) 22 24-32 [facility]2019-04-01 10:50:00 Test Item Value Reference Range Interpretation Comments Glucose Lvl (test code = Glucose Lvl) 89 70-99 [facility]2019-04-01 10:50:00 Test Item Value Reference Range Interpretation Comments BUN (test code = BUN) 10 7-22 [facility]2019-04-01 10:50:00 Test Item Value Reference Range Interpretation Comments AGAP (test code = AGAP) 12.6 10.0-20.0 [facility]2019-04-01 10:50:00 Test Item Value Reference Range Interpretation Comments Calcium Lvl (test code = Calcium Lvl) 7.7 8.5-10.5 [facility]2019-04-01 10:50:00 Test Item Value Reference Range Interpretation Comments Potassium Lvl (test code = Potassium 3.6 3.5-5.1 Lvl) [facility]2019-04-01 10:50:00 Test Item Value Reference Range Interpretation Comments Chloride Lvl (test code = Chloride Lvl) 113 95-109 [facility]2019-04-01 10:50:00 Test Item Value Reference Range Interpretation Comments Sodium Lvl (test code = Sodium Lvl) 144 135-145 [facility]2019-04-01 10:50:00 Test Item Value Reference Range Interpretation Comments Creatinine Lvl (test code = Creatinine 0.86 0.50-1.40 Lvl) [facility]2019-04-01 10:50:00 Test Item Value Reference Range Interpretation Comments eGFR (test code = eGFR) 94 [facility]2019-04-01 10:50:00 Test Item Value Reference Range Interpretation Comments CO2 (test code = CO2) 22 24-32 [facility]2019-04-01 10:50:00 Test Item Value Reference Range Interpretation Comments Glucose Lvl (test code = Glucose Lvl) 89 70-99 [facility]2019-04-01 10:50:00 Test Item Value Reference Range Interpretation Comments BUN (test code = BUN) 10 7- [facility]2019-04-01 10:50:00 Test Item Value Reference Range Interpretation Comments AGAP (test code = AGAP) 12.6 10.0-20.0 [facility]2019-04-01 10:50:00 Test Item Value Reference Range Interpretation Comments Calcium Lvl (test code = Calcium Lvl) 7.7 8.5-10.5 [facility]2019-04-01 10:50:00 Test Item Value Reference Range Interpretation Comments Potassium Lvl (test code = Potassium 3.6 3.5-5.1 Lvl) [facility]2019-04-01 10:50:00 Test Item Value Reference Range Interpretation Comments Chloride Lvl (test code = Chloride Lvl) 113 95-109 [facility]2019-04-01 10:50:00 Test Item Value Reference Range Interpretation Comments Sodium Lvl (test code = Sodium Lvl) 144 135-145 [facility]2019-04-01 10:50:00 Test Item Value Reference Range Interpretation Comments Creatinine Lvl (test code = Creatinine 0.86 0.50-1.40 Lvl) [facility]2019-04-01 10:50:00 Test Item Value Reference Range Interpretation Comments eGFR (test code = eGFR) 94 [facility]2019-04-01 10:50:00 Test Item Value Reference Range Interpretation Comments CO2 (test code = CO2) 22 24-32 [facility]2019-04-01 10:50:00 Test Item Value Reference Range Interpretation Comments Glucose Lvl (test code = Glucose Lvl) 89 70-99 [facility]2019-04-01 10:50:00 Test Item Value Reference Range Interpretation Comments BUN (test code = BUN) 10 7-22 [facility]2019-04-01 10:50:00 Test Item Value Reference Range Interpretation Comments AGAP (test code = AGAP) 12.6 10.0-20.0 [facility]landsDigby TXXIJHD2258-11-89 20:59:00 Test Item Value Reference Range Interpretation Comments BNP (test code = BNP) 454 [facility] TBLKXRH8905-19-83 20:59:00 Test Item Value Reference Range Interpretation Comments Troponin-I (test code no gt See_Comment [Auto mated message] The = Troponin-I) system which g enerated this result transmit garrett reference range : <=0.40. The reference r ondina was not used to interpr et this result as cassie l/abnormal. [facility] URWTJLK8815[facility]34 20:59:00 Test Item Value Reference Range Interpretation Comments Total CK (test code = Total CK) 38 12-191 [facility] HospitalKlmsqwmGKDOXQUFVWZN6115-67-43 20:59:00 Test Item Value Reference Range Interpretation Comments AGAP (test code = AGAP) 9.7 10.0-20.0 [facility] HospitalJufgryvULEAFQCKDCAG4128-12-99 20:59:00 Test Item Value Reference Range Interpretation Comments B/C Ratio (test code = B/C Ratio) 11 1 6-25 [facility] HospitalAmatqoiOADLCRHBJHAB2975-66-13 20:59:00 Test Item Value Reference Range Interpretation Comments A/G Ratio (test code = A/G Ratio) 0.6 1 0.7-1.6 [facility] HospitalSnsizchPZJJXUZQSTDD8858-76-10 20:59:00 Test Item Value Reference Range Interpretation Comments Globulin (test code = Globulin) 4.2 2.7-4.2 [facility] HospitalOhyktwhRZSGYKTHAHCW8986-58-60 20:59:00 Test Item Value Reference Range Interpretation Comments Albumin Lvl (test code = Albumin Lvl) 2.7 3.5-5.0 [facility] HospitalZbjnlkkZFVIXWOWSXIR6626-68-68 20:59:00 Test Item Value Reference Range Interpretation Comments Glucose Lvl (test code = Glucose Lvl) 98 70-99 [facility] HospitalGezmckwBGQPDJKEEHQF2732-19-28 20:59:00 Test Item Value Reference Range Interpretation Comments CO2 (test code = CO2) 26 24-32 [facility] HospitalQsbrgzkBSZNISANBSMJ4611-33-80 20:59:00 Test Item Value Reference Range Interpretation Comments BUN (test code = BUN) 11 7-22 [facility] HospitalLrpfiguGPEPEBYSZFYY7646-92-18 20:59:00 Test Item Value Reference Range Interpretation Comments eGFR (test code = eGFR) 82 [facility] HospitalBnewpqqTGNIFIMPMBKA5384-61-72 20:59:00 Test Item Value Reference Range Interpretation Comments AST (test code = AST) 6 See_Comment [Auto mated message] The system which ge nerated this result transmit garrett reference range : <=37. The reference range was not used to interpr et this result as cassie l/abnormal. [facility] HospitalPupsisfQIITHCVVNKBC1325-08-29 20:59:00 Test Item Value Reference Range Interpretation Comments ALT (test code = ALT) 13 See_Comment [Auto mated message] The system which ge nerated this result transmit garrett reference range : <=65. The reference range was not used to interpr et this result as cassie l/abnormal. [facility] HospitalUaizzieYDBFMFXQXUVE3958-34-71 20:59:00 Test Item Value Reference Range Interpretation Comments Creatinine Lvl (test code = Creatinine 1.00 0.50-1.40 Lvl) [facility] HospitalGogygogQEDRPUMGLHZB9957-86-60 20:59:00 Test Item Value Reference Range Interpretation Comments Bili Total (test code = Bili Total) 0.1 0.2-1.3 [facility] HospitalPsxrtxqBZSODFKWVQQG9641-91-07 20:59:00 Test Item Value Reference Range Interpretation Comments Total Protein (test code = Total 6.9 6.4-8.4 Protein) [facility] HospitalVeryclnJIJMWFFJURHJ6255-76-76 20:59:00 Test Item Value Reference Range Interpretation Comments Calcium Lvl (test code = Calcium Lvl) 8.2 8.5-10.5 [facility] HospitalGjlwnodTWCEQZZVCAIM8795-63-01 20:59:00 Test Item Value Reference Range Interpretation Comments Alk Phos (test code = Alk Phos) 122 39-136 [facility] HospitalOdntbqjMXAOIBCIUOMF2512-10-31 20:59:00 Test Item Value Reference Range Interpretation Comments Sodium Lvl (test code = Sodium Lvl) 145 135-145 [facility] HospitalVvfamjjSJMCNSYBQLMZ3592-67-03 20:59:00 Test Item Value Reference Range Interpretation Comments Chloride Lvl (test code = Chloride Lvl) 113 95-109 [facility] HospitalXcjtcmnVBSTCPCLRCGX0893-18-63 20:59:00 Test Item Value Reference Range Interpretation Comments Potassium Lvl (test code = Potassium 3.7 3.5-5.1 Lvl) [facility] HospitalUqsyxmhBUPEZMZIAQ0972-03-21 20:59:00 Test Item Value Reference Range Interpretation Comments PT (test code = PT) 13.3 s 12.0-14.7 [facility] HospitalVtrqkjgUDUTVJURGU9897-74-75 20:59:00 Test Item Value Reference Range Interpretation Comments INR (test code = INR) 1.03 1 0.85-1.17 [facility] HospitalHcftffgBFCNGHPTQO7860-83-17 20:59:00 Test Item Value Reference Range Interpretation Comments PTT (test code = PTT) 31.9 s 22.9-35.8 [facility] HospitalWyxwehyROEWZMGIIH8462-00-04 20:59:00 Test Item Value Reference Range Interpretation Comments MPV (test code = MPV) 8.1 7.4-10.4 [facility] HospitalHhgpvzdEYWJGDZKPC4440-22-65 20:59:00 Test Item Value Reference Range Interpretation Comments MCHC (test code = MCHC) 30.8 32.0-36.0 [facility] HospitalEgnzrefASJQBAIBFY9458-19-98 20:59:00 Test Item Value Reference Range Interpretation Comments MCV (test code = MCV) 81.3 80.0-94.0 [facility] HospitalHcnxflpQNZWXSCPAO7490-98-90 20:59:00 Test Item Value Reference Range Interpretation Comments MCH (test code = MCH) 25.1 pg 27.0-31.0 [facility] HospitalUkhoxydKYHFIRWDKH4029-10-58 20:59:00 Test Item Value Reference Range Interpretation Comments RDW (test code = RDW) 18.6 11.5-14.5 [facility] HospitalTjqafplCNDMVCKHTQ3009-69-69 20:59:00 Test Item Value Reference Range Interpretation Comments RBC (test code = RBC) 3.52 4.70-6.10 [facility] HospitalEnhgdhxRYZJFVYEMC4779-07-65 20:59:00 Test Item Value Reference Range Interpretation Comments Hgb (test code = Hgb) 8.8 14.0-18.0 [facility] HospitalJpwqercTLBHMGMLJQ8294-77-56 20:59:00 Test Item Value Reference Range Interpretation Comments WBC (test code = WBC) 6.0 3.7-10.4 [facility] HospitalYmgoncxSNETWPPHVC1136-72-63 20:59:00 Test Item Value Reference Range Interpretation Comments Hct (test code = Hct) 28.6 42.0-54.0 [facility] HospitalFfwpzjwRJEUEZVOKB0409-08-69 20:59:00 Test Item Value Reference Range Interpretation Comments Platelet (test code = Platelet) 390 133-450 [facility] HospitalPrdtnxxTPRQYWLEPN2392-89-42 20:59:00 Test Item Value Reference Range Interpretation Comments Monocytes (test code = Monocytes) 10.1 2.0-12.0 [facility] HospitalXitlgecPMZGJSREHI6417-88-54 20:59:00 Test Item Value Reference Range Interpretation Comments Lymphocytes (test code = Lymphocytes) 16.4 20.0-40.0 [facility] HospitalKhsbyxwAOQJNSZOBV0144-38-23 20:59:00 Test Item Value Reference Range Interpretation Comments Anisocyte (test code = 1+ *ABN*(06/02/18 Anisocyte) 3:59 PM) [facility] HospitalAzjdgtbGHIKVRTDQP0764-70-66 20:59:00 Test Item Value Reference Range Interpretation Comments Eosinophils # (test code 0.2 See_Comment [A utomated message] The = Eosinophils #) system [facility] generated this result tra nsmitted reference range : <=0.5. The reference r ondina was not used to int erpret this result as normal/abnormal . [facility] HospitalQvbueaoUMJWTBULUN2134-09-97 20:59:00 Test Item Value Reference Range Interpretation Comments Neutrophils # (test code = Neutrophils 4.1 1.5-8.1 #) [facility] HospitalGdllebbYAHTTFAMNF3987-43-29 20:59:00 Test Item Value Reference Range Interpretation Comments Basophils (test code = 0.8 See_Comment [Aut omated message] The Basophils) system which ge nerated this result tra nsmitted reference range : <=1.0. The reference r ondina was not used to int erpret this result as normal/abnormal . [facility] HospitalZpabyipSGNUQUXNIR4096-97-21 20:59:00 Test Item Value Reference Range Interpretation Comments Eosinophils (test code = 4.0 See_Comment [A utomated message] The Eosinophils) system which ge nerated this result tra nsmitted reference range : <=4.0. The reference r ondina was not used to int erpret this result as normal/abnormal . [facility] HospitalOmploziCXHCVPSPBX3495-54-41 20:59:00 Test Item Value Reference Range Interpretation Comments Segs (test code = Segs) 68.7 45.0-75.0 [facility] HospitalOhsmneeBEQWMZBRBA7663-82-25 20:59:00 Test Item Value Reference Range Interpretation Comments Hypochrom (test code = 2+ (06/02/18 3:59 PM) Hypochrom) [facility] HospitalJkwqcypDVRAXANKMP2437-22-46 20:59:00 Test Item Value Reference Range Interpretation Comments Large Plt (test code Moderate *ABN*(06/02/18 = Large Plt) 3:59 PM) [facility] HospitalGpcslixERDCCVCFUD5498-95-41 20:59:00 Test Item Value Reference Range Interpretation Comments Lymphocytes # (test code = Lymphocytes 1.0 1.0-5.5 #) [facility]landsOcewihsWIPIHDRYJD4379-61-22 20:59:00 Test Item Value Reference Range Interpretation Comments Monocytes # (test code 0.6 See_Comment [Aut omated message] The = Monocytes #) system which generated this result tra nsmitted reference range : <=0.8. The reference r ondina was not used to int erpret this result as normal/abnormal . [facility] HospitalBloglovinCARiLogonAC CNVLGFY7092-77-30 20:59:00 Test Item Value Reference Range Interpretation Comments BNP (test code = BNP) 454 [facility] NKNZOWD0187-99-37 20:59:00 Test Item Value Reference Range Interpretation Comments Troponin-I (test code no gt See_Comment [Auto mated message] The = Troponin-I) system which g enerated this result transmit garrett reference range : <=0.40. The reference r ondina was not used to interpr et this result as cassie l/abnormal. [facility]landsDigby DWZAZYR9020-78-05 20:59:00 Test Item Value Reference Range Interpretation Comments Total CK (test code = Total CK) 38 12-191 [facility] HospitalVqkpsxmCIEUDZWBJLHD8396-10-12 20:59:00 Test Item Value Reference Range Interpretation Comments AGAP (test code = AGAP) 9.7 10.0-20.0 [facility] HospitalUshbhhyVJPGVIKCMAHE1981-55-84 20:59:00 Test Item Value Reference Range Interpretation Comments B/C Ratio (test code = B/C Ratio) 11 1 6-25 [facility] HospitalStnannhQBOQZKBXRDNN5677-82-92 20:59:00 Test Item Value Reference Range Interpretation Comments A/G Ratio (test code = A/G Ratio) 0.6 1 0.7-1.6 [facility] HospitalTbatuhaLMNNJYHEXQMK6789-69-88 20:59:00 Test Item Value Reference Range Interpretation Comments Globulin (test code = Globulin) 4.2 2.7-4.2 [facility] HospitalIvwvqywZGMQADRFESMX4892-51-29 20:59:00 Test Item Value Reference Range Interpretation Comments Albumin Lvl (test code = Albumin Lvl) 2.7 3.5-5.0 [facility] HospitalGdipevkZCTZDFHGTALN3034-29-00 20:59:00 Test Item Value Reference Range Interpretation Comments Glucose Lvl (test code = Glucose Lvl) 98 70-99 [facility] HospitalJodiqffLXUFEDHPVAPD2080-02-66 20:59:00 Test Item Value Reference Range Interpretation Comments CO2 (test code = CO2) 26 24-32 [facility] HospitalWmypzylXNJEYMBDKMHB3893-50-62 20:59:00 Test Item Value Reference Range Interpretation Comments BUN (test code = BUN) 11 7-22 [facility] HospitalNtseqgdEIGZSOZERKVP7374-28-05 20:59:00 Test Item Value Reference Range Interpretation Comments eGFR (test code = eGFR) 82 [facility] HospitalBozoghdJUBRZVZIVXZD5256-32-71 20:59:00 Test Item Value Reference Range Interpretation Comments AST (test code = AST) 6 See_Comment [Auto mated message] The system which ge nerated this result transmit garrett reference range : <=37. The reference range was not used to interpr et this result as cassie l/abnormal. [facility] HospitalIohvipuAQLWHAEPHNLR6746-64-94 20:59:00 Test Item Value Reference Range Interpretation Comments ALT (test code = ALT) 13 See_Comment [Auto mated message] The system which ge nerated this result transmit garrett reference range : <=65. The reference range was not used to interpr et this result as cassie l/abnormal. [facility] HospitalLbjjvkuSSIOMTRONHDQ4922-33-51 20:59:00 Test Item Value Reference Range Interpretation Comments Creatinine Lvl (test code = Creatinine 1.00 0.50-1.40 Lvl) [facility] HospitalYkojptiDKRTHVGZJDDV6066-14-33 20:59:00 Test Item Value Reference Range Interpretation Comments Bili Total (test code = Bili Total) 0.1 0.2-1.3 [facility] [facility]QcedtszBBHOKOTIDJBE2452-08-35 20:59:00 Test Item Value Reference Range Interpretation Comments Total Protein (test code = Total 6.9 6.4-8.4 Protein) [facility]MyffuieTQNBKVPMCXUT8847-98-48 20:59:00 Test Item Value Reference Range Interpretation Comments Calcium Lvl (test code = Calcium Lvl) 8.2 8.5-10.5 [facility] HospitalPdgaigeUDIIDDCYZPQA0598-17-28 20:59:00 Test Item Value Reference Range Interpretation Comments Alk Phos (test code = Alk Phos) 122 39-136 [facility] HospitalNrjadljJGDZNCPLMQYP3198-43-81 20:59:00 Test Item Value Reference Range Interpretation Comments Sodium Lvl (test code = Sodium Lvl) 145 135-145 [facility] HospitalDsqdxscLQEGCPOVSIVE3295-82-86 20:59:00 Test Item Value Reference Range Interpretation Comments Chloride Lvl (test code = Chloride Lvl) 113 95-109 [facility] HospitalBwnsqguXOOJKMNWXQUH7257-47-93 20:59:00 Test Item Value Reference Range Interpretation Comments Potassium Lvl (test code = Potassium 3.7 3.5-5.1 Lvl) [facility] HospitalHvugdgyKBRUOGZYRD7863-06-57 20:59:00 Test Item Value Reference Range Interpretation Comments PT (test code = PT) 13.3 s 12.0-14.7 [facility] HospitalYrkbccrUKLBKSPXYP1259-43-50 20:59:00 Test Item Value Reference Range Interpretation Comments INR (test code = INR) 1.03 1 0.85-1.17 [facility] HospitalKkcxzmbPWGVXKLRMJ7588-84-93 20:59:00 Test Item Value Reference Range Interpretation Comments PTT (test code = PTT) 31.9 s 22.9-35.8 [facility] HospitalWqygqklWDYJRUETXV5667-40-96 20:59:00 Test Item Value Reference Range Interpretation Comments MPV (test code = MPV) 8.1 7.4-10.4 [facility] HospitalLzspokrUCAMFHEAAM5696-30-59 20:59:00 Test Item Value Reference Range Interpretation Comments MCHC (test code = MCHC) 30.8 32.0-36.0 [facility] HospitalXrqcfruRPQVTQKVHN6399-82-30 20:59:00 Test Item Value Reference Range Interpretation Comments MCV (test code = MCV) 81.3 80.0-94.0 [facility] HospitalAsruxsfVAIKSUVLHT1956-58-36 20:59:00 Test Item Value Reference Range Interpretation Comments MCH (test code = MCH) 25.1 pg 27.0-31.0 [facility] HospitalIboohmrRNVVYDVHLT4933-08-49 20:59:00 Test Item Value Reference Range Interpretation Comments RDW (test code = RDW) 18.6 11.5-14.5 [facility] HospitalGegquayODHNTNINXA8151-41-51 20:59:00 Test Item Value Reference Range Interpretation Comments RBC (test code = RBC) 3.52 4.70-6.10 [facility] HospitalXgwnzozVKWPNCRJQE2256-88-74 20:59:00 Test Item Value Reference Range Interpretation Comments Hgb (test code = Hgb) 8.8 14.0-18.0 [facility] HospitalSyylaqiBOFITCXJHY3053-81-75 20:59:00 Test Item Value Reference Range Interpretation Comments WBC (test code = WBC) 6.0 3.7-10.4 [facility] HospitalAzijspiXVBWDISBJJ5836-25-35 20:59:00 Test Item Value Reference Range Interpretation Comments Hct (test code = Hct) 28.6 42.0-54.0 [facility] HospitalCekmeznDYIULYGDVG0350-58-59 20:59:00 Test Item Value Reference Range Interpretation Comments Platelet (test code = Platelet) 390 133-450 [facility] HospitalIyfqkthQQZYOUGVCW6650-78-34 20:59:00 Test Item Value Reference Range Interpretation Comments Monocytes (test code = Monocytes) 10.1 2.0-12.0 [facility] HospitalPzmkkcwFZEHIMMCMV8746-62-51 20:59:00 Test Item Value Reference Range Interpretation Comments Lymphocytes (test code = Lymphocytes) 16.4 20.0-40.0 [facility] HospitalHubxgilFGUPRCMUXR1658-91-24 20:59:00 Test Item Value Reference Range Interpretation Comments Anisocyte (test code = 1+ *ABN*(06/02/18 Anisocyte) 3:59 PM) [facility] HospitalPnjjtauZPRMUUWUUK2580-25-71 20:59:00 Test Item Value Reference Range Interpretation Comments Eosinophils # (test code 0.2 See_Comment [A utomated message] The = Eosinophils #) system whic h generated this result tra nsmitted reference range : <=0.5. The reference r ondina was not used to int erpret this result as normal/abnormal . [facility] HospitalYgmbqriYFNFDTLHMC4834-68-46 20:59:00 Test Item Value Reference Range Interpretation Comments Neutrophils # (test code = Neutrophils 4.1 1.5-8.1 #) [facility] HospitalXhunelnDUWEOKDEPE6525-52-64 20:59:00 Test Item Value Reference Range Interpretation Comments Basophils (test code = 0.8 See_Comment [Aut omated message] The Basophils) system which ge nerated this result tra nsmitted reference range : <=1.0. The reference r ondina was not used to int erpret this result as normal/abnormal . [facility] HospitalLkcafwvVVRKENHEYB0655-12-84 20:59:00 Test Item Value Reference Range Interpretation Comments Eosinophils (test code = 4.0 See_Comment [A utomated message] The Eosinophils) system which ge nerated this result tra nsmitted reference range : <=4.0. The reference r ondina was not used to int erpret this result as normal/abnormal . [facility] HospitalFqgsandZSGEJOSGSU6544-02-72 20:59:00 Test Item Value Reference Range Interpretation Comments Segs (test code = Segs) 68.7 45.0-75.0 [facility] HospitalAcocdpnQIPYAFVCYE9722-51-36 20:59:00 Test Item Value Reference Range Interpretation Comments Hypochrom (test code = 2+ (06/02/18 3:59 PM) Hypochrom) [facility] HospitalZwwuwrwGRHUGCOXNZ3140-37-22 20:59:00 Test Item Value Reference Range Interpretation Comments Large Plt (test code Moderate *ABN*(06/02/18 = Large Plt) 3:59 PM) [facility] HospitalZsruremYNNVKUZRDR3671-07-53 20:59:00 Test Item Value Reference Range Interpretation Comments Lymphocytes # (test code = Lymphocytes 1.0 1.0-5.5 #) [facility] HospitalLcnngucQGPASGONDI7910-26-90 20:59:00 Test Item Value Reference Range Interpretation Comments Monocytes # (test code 0.6 See_Comment [Aut omated message] The = Monocytes #) system which generated this result tra nsmitted reference range : <=0.8. The reference r ondina was not used to int erpret this result as normal/abnormal . [facility] MHQHRRM9880-56-67 20:59:00 Test Item Value Reference Range Interpretation Comments BNP (test code = BNP) 454 [facility] UXYRFWR5528-02-65 20:59:00 Test Item Value Reference Range Interpretation Comments Troponin-I (test code no gt See_Comment [Auto mated message] The = Troponin-I) system which g enerated this result transmit garrett reference range : <=0.40. The reference r ondina was not used to interpr et this result as cassie l/abnormal. [facility] BYLXWJM2305-91-97 20:59:00 Test Item Value Reference Range Interpretation Comments Total CK (test code = Total CK) 38 12-191 [facility]MgatnpnHUHKSEMUGYQO0193-72-92 20:59:00 Test Item Value Reference Range Interpretation Comments AGAP (test code = AGAP) 9.7 10.0-20.0 [facility] HospitalZurwwfqBBAINHXUTMZU3492-06-67 20:59:00 Test Item Value Reference Range Interpretation Comments B/C Ratio (test code = B/C Ratio) 11 1 6-25 [facility] HospitalNvioafmRDCPNOPEIMJX8948-83-40 20:59:00 Test Item Value Reference Range Interpretation Comments A/G Ratio (test code = A/G Ratio) 0.6 1 0.7-1.6 [facility] HospitalStpodyhESVLRAEHGJTG5484-84-69 20:59:00 Test Item Value Reference Range Interpretation Comments Globulin (test code = Globulin) 4.2 2.7-4.2 [facility] HospitalBhrovjxLCPVAKVPILZT6354-45-79 20:59:00 Test Item Value Reference Range Interpretation Comments Albumin Lvl (test code = Albumin Lvl) 2.7 3.5-5.0 [facility] HospitalInhfzfdNAVFHOFIMGPK2032-93-28 20:59:00 Test Item Value Reference Range Interpretation Comments Glucose Lvl (test code = Glucose Lvl) 98 70-99 [facility] HospitalOokbxltLSZUKOIXZTFG7485-85-24 20:59:00 Test Item Value Reference Range Interpretation Comments CO2 (test code = CO2) 26 24-32 [facility] HospitalQeczsxuYJTLVGBHJGWT1552-05-80 20:59:00 Test Item Value Reference Range Interpretation Comments BUN (test code = BUN) 11 7-22 [facility] HospitalIkdtobsOZBSNSBNDWMZ1687-65-83 20:59:00 Test Item Value Reference Range Interpretation Comments eGFR (test code = eGFR) 82 [facility] HospitalBxmvlbbZILGOMZXHURV4624-51-39 20:59:00 Test Item Value Reference Range Interpretation Comments AST (test code = AST) 6 See_Comment [Auto mated message] The system which ge nerated this result transmit garrett reference range : <=37. The reference range was not used to interpr et this result as cassie l/abnormal. [facility] HospitalXdfkaatBTVDDUDLMNAQ3621-44-96 20:59:00 Test Item Value Reference Range Interpretation Comments ALT (test code = ALT) 13 See_Comment [Auto mated message] The system which ge nerated this result transmit garrett reference range : <=65. The reference range was not used to interpr et this result as cassie l/abnormal. [facility] HospitalMvxgovoBZGWQDRIYWDW1538-23-92 20:59:00 Test Item Value Reference Range Interpretation Comments Creatinine Lvl (test code = Creatinine 1.00 0.50-1.40 Lvl) [facility] HospitalVcnwtktRFYYROSILAZB3054-95-69 20:59:00 Test Item Value Reference Range Interpretation Comments Bili Total (test code = Bili Total) 0.1 0.2-1.3 [facility] HospitalOjhdytoRJLCMZABCHQR9368-37-83 20:59:00 Test Item Value Reference Range Interpretation Comments Total Protein (test code = Total 6.9 6.4-8.4 Protein) [facility] HospitalDjzmfqrYXETPXCNSVST3700-34-83 20:59:00 Test Item Value Reference Range Interpretation Comments Calcium Lvl (test code = Calcium Lvl) 8.2 8.5-10.5 [facility] HospitalFhjsbcsPRDVZMHGWPWZ7571-64-43 20:59:00 Test Item Value Reference Range Interpretation Comments Alk Phos (test code = Alk Phos) 122 39-136 [facility] HospitalHmyusthYBMDOMURWYJI4128-06-39 20:59:00 Test Item Value Reference Range Interpretation Comments Sodium Lvl (test code = Sodium Lvl) 145 135-145 [facility] HospitalPsikkukSZIIVSFHZZZC3281-49-17 20:59:00 Test Item Value Reference Range Interpretation Comments Chloride Lvl (test code = Chloride Lvl) 113 95-109 [facility] HospitalOhljcmcSMOTZEDDJYSO7731-33-23 20:59:00 Test Item Value Reference Range Interpretation Comments Potassium Lvl (test code = Potassium 3.7 3.5-5.1 Lvl) [facility] HospitalCfhnvhlSQMYIPIGNK7843-01-35 20:59:00 Test Item Value Reference Range Interpretation Comments PT (test code = PT) 13.3 s 12.0-14.7 [facility] HospitalPhjfrciATXAECLHOH5744-82-93 20:59:00 Test Item Value Reference Range Interpretation Comments INR (test code = INR) 1.03 1 0.85-1.17 [facility] HospitalMcthnxlTCCFWDOSTH0647-02-79 20:59:00 Test Item Value Reference Range Interpretation Comments PTT (test code = PTT) 31.9 s 22.9-35.8 [facility] HospitalLnyjyesASBWQQXLRX2526-47-91 20:59:00 Test Item Value Reference Range Interpretation Comments MPV (test code = MPV) 8.1 7.4-10.4 [facility] HospitalYcgbsorYYMTTUUJNB9564-01-87 20:59:00 Test Item Value Reference Range Interpretation Comments MCHC (test code = MCHC) 30.8 32.0-36.0 [facility] HospitalOdugxvcTKWPFPSIHR1683-27-13 20:59:00 Test Item Value Reference Range Interpretation Comments MCV (test code = MCV) 81.3 80.0-94.0 [facility] HospitalTrzucltMCPQZSBZCB7050-00-54 20:59:00 Test Item Value Reference Range Interpretation Comments MCH (test code = MCH) 25.1 pg 27.0-31.0 [facility] HospitalLygkgabFQIICUWCIZ6679-51-92 20:59:00 Test Item Value Reference Range Interpretation Comments RDW (test code = RDW) 18.6 11.5-14.5 [facility] HospitalPghazptYUVGHVDINU8560-24-68 20:59:00 Test Item Value Reference Range Interpretation Comments RBC (test code = RBC) 3.52 4.70-6.10 [facility] HospitalJlnlyzbCXOVEAUNGH8814-36-34 20:59:00 Test Item Value Reference Range Interpretation Comments Hgb (test code = Hgb) 8.8 14.0-18.0 [facility] HospitalBvzbcykIFIDXCOMZQ0554-03-97 20:59:00 Test Item Value Reference Range Interpretation Comments WBC (test code = WBC) 6.0 3.7-10.4 [facility] HospitalZvarznzBJGYTYHZDK0378-24-20 20:59:00 Test Item Value Reference Range Interpretation Comments Hct (test code = Hct) 28.6 42.0-54.0 [facility] HospitalZzhnlxtMCBVVXKQYT2543-57-86 20:59:00 Test Item Value Reference Range Interpretation Comments Platelet (test code = Platelet) 390 133-450 [facility] HospitalOikwonmTMPAETVNYH2083-21-55 20:59:00 Test Item Value Reference Range Interpretation Comments Monocytes (test code = Monocytes) 10.1 2.0-12.0 [facility] HospitalXlzzatcOEOAJWOTVV5869-96-80 20:59:00 Test Item Value Reference Range Interpretation Comments Lymphocytes (test code = Lymphocytes) 16.4 20.0-40.0 [facility] HospitalLxiwytcZJDJDQBCOQ8577-63-44 20:59:00 Test Item Value Reference Range Interpretation Comments Anisocyte (test code = 1+ *ABN*(06/02/18 Anisocyte) 3:59 PM) [facility] HospitalNwlrqrzGIZKOOZSRC2065-19-98 20:59:00 Test Item Value Reference Range Interpretation Comments Eosinophils # (test code 0.2 See_Comment [A utomated message] The = Eosinophils #) system whic h generated this result tra nsmitted reference range : <=0.5. The reference r ondina was not used to int erpret this result as normal/abnormal . [facility] HospitalHbcprhjMPSBQWPEMN3102-10-62 20:59:00 Test Item Value Reference Range Interpretation Comments Neutrophils # (test code = Neutrophils 4.1 1.5-8.1 #) [facility] HospitalKzftjezQBNRLKCOOO4040-23-49 20:59:00 Test Item Value Reference Range Interpretation Comments Basophils (test code = 0.8 See_Comment [Aut omated message] The Basophils) system which ge nerated this result tra nsmitted reference range : <=1.0. The reference r ondina was not used to int erpret this result as normal/abnormal . [facility] HospitalYvohvtlBVFYCBDWUR9828-04-71 20:59:00 Test Item Value Reference Range Interpretation Comments Eosinophils (test code = 4.0 See_Comment [A utomated message] The Eosinophils) system which ge nerated this result tra nsmitted reference range : <=4.0. The reference r ondina was not used to int erpret this result as normal/abnormal . [facility] HospitalZzeiwqgJSNZWNVFMU4960-80-56 20:59:00 Test Item Value Reference Range Interpretation Comments Segs (test code = Segs) 68.7 45.0-75.0 [facility] HospitalSjoloosFCPXUOQCGY1273-25-49 20:59:00 Test Item Value Reference Range Interpretation Comments Hypochrom (test code = 2+ (06/02/18 3:59 PM) Hypochrom) [facility] HospitalXpfmxenQNULZQQFRS5916-56-17 20:59:00 Test Item Value Reference Range Interpretation Comments Large Plt (test code Moderate *ABN*(06/02/18 = Large Plt) 3:59 PM) [facility] HospitalGfnzugaACEEPKPISX6998-22-77 20:59:00 Test Item Value Reference Range Interpretation Comments Lymphocytes # (test code = Lymphocytes 1.0 1.0-5.5 #) [facility] HospitalWkdhdxsAEZVEMFCBG5917-64-91 20:59:00 Test Item Value Reference Range Interpretation Comments Monocytes # (test code 0.6 See_Comment [Aut omated message] The = Monocytes #) system which generated this result tra nsmitted reference range : <=0.8. The reference r ondina was not used to int erpret this result as normal/abnormal . [facility] HospitalAnnxpieIVIBPVHLCU2233-92-12 14:40:00 Test Item Value Reference Range Interpretation Comments Platelet (test code = Platelet) 233 133-450 [facility] HospitalZclfaqiGZMOMVBISN2133-36-17 14:40:00 Test Item Value Reference Range Interpretation Comments MPV (test code = MPV) 8.3 7.4-10.4 [facility] HospitalIksmijcYDRONNYRUD6243-99-15 14:40:00 Test Item Value Reference Range Interpretation Comments MCHC (test code = MCHC) 32.2 32.0-36.0 [facility] HospitalAfxpyqkRJQBREIQJK6142-25-30 14:40:00 Test Item Value Reference Range Interpretation Comments RDW (test code = RDW) 19.0 11.5-14.5 [facility] HospitalZpqslcvFZBHNMRJCC1083-34-04 14:40:00 Test Item Value Reference Range Interpretation Comments Hgb (test code = Hgb) 8.8 14.0-18.0 [facility] HospitalChekuhvLMWNWWYDZP4983-24-02 14:40:00 Test Item Value Reference Range Interpretation Comments RBC (test code = RBC) 3.40 4.70-6.10 [facility] HospitalAwiwucjDJKKHSKNQM5266-22-46 14:40:00 Test Item Value Reference Range Interpretation Comments MCV (test code = MCV) 80.1 80.0-94.0 [facility] HospitalXjsmlyhPXPRVCAZXY0507-38-57 14:40:00 Test Item Value Reference Range Interpretation Comments MCH (test code = MCH) 25.8 pg 27.0-31.0 [facility] HospitalWfhdvfmHLCGJZSVUT4144-55-90 14:40:00 Test Item Value Reference Range Interpretation Comments Hct (test code = Hct) 27.3 42.0-54.0 [facility] HospitalVxwbnlbURJBVCFPPO6086-53-45 14:40:00 Test Item Value Reference Range Interpretation Comments WBC (test code = WBC) 7.3 3.7-10.4 [facility] HospitalQhsjjspYZZDUPQTMG0192-92-84 14:40:00 Test Item Value Reference Range Interpretation Comments Basophils (test code = 1.3 See_Comment [Aut omated message] The Basophils) system which ge nerated this result tra nsmitted reference range : <=1.0. The reference r ondina was not used to int erpret this result as normal/abnormal . [place] 098479-03-19 14:40:00 Test Item Value Reference Range Interpretation Comments Neutrophils # (test code = Neutrophils 4.6 1.5-8.1 #) [facility] HospitalMwfxgfpRWBPTYDOXB5571-10-37 14:40:00 Test Item Value Reference Range Interpretation Comments Eosinophils (test code = 7.5 See_Comment [A utomated message] The Eosinophils) system which ge nerated this result tra nsmitted reference range : <=4.0. The reference r ondina was not used to int erpret this result as normal/abnormal . [facility] HospitalSkvbgfeGMEWIMGMQS6460-67-68 14:40:00 Test Item Value Reference Range Interpretation Comments Monocytes (test code = Monocytes) 8.8 2.0-12.0 [facility] HospitalKpoqspzYIIMRWWESG4405-42-44 14:40:00 Test Item Value Reference Range Interpretation Comments Segs (test code = Segs) 63.4 45.0-75.0 [facility] HospitalWwpuzjkYQPVJZUBCR6857-56-51 14:40:00 Test Item Value Reference Range Interpretation Comments Lymphocytes (test code = Lymphocytes) 19.0 20.0-40.0 [facility] HospitalTgxasvySMRBQEQXXP3271-60-76 14:40:00 Test Item Value Reference Range Interpretation Comments Eosinophils # (test code 0.5 See_Comment [A utomated message] The = Eosinophils #) system whic h generated this result tra nsmitted reference range : <=0.5. The reference r ondina was not used to int erpret this result as normal/abnormal . [facility] HospitalAybjytbRZGKREQFTJ9318-84-27 14:40:00 Test Item Value Reference Range Interpretation Comments Basophils # (test code 0.1 See_Comment [Aut omated message] The = Basophils #) system which generated this result tra nsmitted reference range : <=0.2. The reference r ondina was not used to int erpret this result as normal/abnormal . [facility] HospitalWunkwlpZDIKIHNNEH0546-54-30 14:40:00 Test Item Value Reference Range Interpretation Comments Monocytes # (test code 0.6 See_Comment [Aut omated message] The = Monocytes #) system which generated this result tra nsmitted reference range : <=0.8. The reference r ondina was not used to int erpret this result as normal/abnormal . [facility] HospitalMxktqddMTTVNFTFFP6270-45-64 14:40:00 Test Item Value Reference Range Interpretation Comments Lymphocytes # (test code = Lymphocytes 1.4 1.0-5.5 #) [facility] HospitalBajsmpwRZXTMDBYRV0060-45-97 14:40:00 Test Item Value Reference Range Interpretation Comments Platelet (test code = Platelet) 233 133-450 [facility] HospitalYxpyfolDHLVCEIOSM6471-37-20 14:40:00 Test Item Value Reference Range Interpretation Comments MPV (test code = MPV) 8.3 7.4-10.4 [facility] HospitalJvszrxeCDFYPZMKYR8556-93-78 14:40:00 Test Item Value Reference Range Interpretation Comments MCHC (test code = MCHC) 32.2 32.0-36.0 [facility] HospitalVcdhwvsMAJNHZFOYN0554-50-81 14:40:00 Test Item Value Reference Range Interpretation Comments RDW (test code = RDW) 19.0 11.5-14.5 [facility] HospitalTxigodcYLUBABCKML4122-54-72 14:40:00 Test Item Value Reference Range Interpretation Comments Hgb (test code = Hgb) 8.8 14.0-18.0 [facility] HospitalOwdmzqdHNZCWVJBNQ8733-39-33 14:40:00 Test Item Value Reference Range Interpretation Comments RBC (test code = RBC) 3.40 4.70-6.10 [facility] HospitalKafxrmxAFHFWPNOVJ1619-86-37 14:40:00 Test Item Value Reference Range Interpretation Comments MCV (test code = MCV) 80.1 80.0-94.0 [facility] HospitalNzpzhuuSHNNIUGOYT1333-39-16 14:40:00 Test Item Value Reference Range Interpretation Comments MCH (test code = MCH) 25.8 pg 27.0-31.0 [facility] HospitalRzbcosoGWERPUZZLR3015-89-43 14:40:00 Test Item Value Reference Range Interpretation Comments Hct (test code = Hct) 27.3 42.0-54.0 [facility] HospitalLghytuuLHIXRXUEOL4104-34-59 14:40:00 Test Item Value Reference Range Interpretation Comments WBC (test code = WBC) 7.3 3.7-10.4 [facility] HospitalOnuwdtjZQHXIEFNPL6584-20-14 14:40:00 Test Item Value Reference Range Interpretation Comments Basophils (test code = 1.3 See_Comment [Aut omated message] The Basophils) system which ge nerated this result tra nsmitted reference range : <=1.0. The reference r ondina was not used to int erpret this result as normal/abnormal . [facility] HospitalYadvbobLGVBCJUXFW8572-01-93 14:40:00 Test Item Value Reference Range Interpretation Comments Neutrophils # (test code = Neutrophils 4.6 1.5-8.1 #) [facility] HospitalSsxaljrCLXFRBEMCT5034-57-00 14:40:00 Test Item Value Reference Range Interpretation Comments Eosinophils (test code = 7.5 See_Comment [A utomated message] The Eosinophils) system which ge nerated this result tra nsmitted reference range : <=4.0. The reference r ondina was not used to int erpret this result as normal/abnormal . [facility] HospitalDubpprnUCNLZNZARK2375-06-02 14:40:00 Test Item Value Reference Range Interpretation Comments Monocytes (test code = Monocytes) 8.8 2.0-12.0 [facility] HospitalHnkbyjyFYCOAJDNHE4008-22-19 14:40:00 Test Item Value Reference Range Interpretation Comments Segs (test code = Segs) 63.4 45.0-75.0 [facility] HospitalQlclegzEVTKCTTJBD7823-13-05 14:40:00 Test Item Value Reference Range Interpretation Comments Lymphocytes (test code = Lymphocytes) 19.0 20.0-40.0 [facility] HospitalVylcfyfQJSPXCBZXV1104-77-24 14:40:00 Test Item Value Reference Range Interpretation Comments Eosinophils # (test code 0.5 See_Comment [A utomated message] The = Eosinophils #) system whic h generated this result tra nsmitted reference range : <=0.5. The reference r ondina was not used to int erpret this result as normal/abnormal . [facility] HospitalSlsmnlnPTYPTZSHSD3809-10-83 14:40:00 Test Item Value Reference Range Interpretation Comments Basophils # (test code 0.1 See_Comment [Aut omated message] The = Basophils #) system which generated this result tra nsmitted reference range : <=0.2. The reference r ondina was not used to int erpret this result as normal/abnormal . [facility] HospitalGbqmyvwSBLQNJXGCR5927-96-82 14:40:00 Test Item Value Reference Range Interpretation Comments Monocytes # (test code 0.6 See_Comment [Aut omated message] The = Monocytes #) system which generated this result tra nsmitted reference range : <=0.8. The reference r ondina was not used to int erpret this result as normal/abnormal . [facility] HospitalNlvelftSJADWQKXQY4994-62-72 14:40:00 Test Item Value Reference Range Interpretation Comments Lymphocytes # (test code = Lymphocytes 1.4 1.0-5.5 #) [facility] HospitalRawdjxoUQWTRHWNSF7374-80-83 14:40:00 Test Item Value Reference Range Interpretation Comments Platelet (test code = Platelet) 233 133-450 [facility] HospitalCkgbkmgQXRWTKLHTJ6908-63-33 14:40:00 Test Item Value Reference Range Interpretation Comments MPV (test code = MPV) 8.3 7.4-10.4 [facility] HospitalZsyhaqjHDGNZUKNCZ0821-15-34 14:40:00 Test Item Value Reference Range Interpretation Comments MCHC (test code = MCHC) 32.2 32.0-36.0 [facility] HospitalPtnuvnpNOAYBJUPOP3002-95-47 14:40:00 Test Item Value Reference Range Interpretation Comments RDW (test code = RDW) 19.0 11.5-14.5 [facility] HospitalArakcmpVCRKKPNHIL0459-74-05 14:40:00 Test Item Value Reference Range Interpretation Comments Hgb (test code = Hgb) 8.8 14.0-18.0 [facility] HospitalOxkursyKKTDEGQFDB5642-64-11 14:40:00 Test Item Value Reference Range Interpretation Comments RBC (test code = RBC) 3.40 4.70-6.10 [facility] HospitalRrwrhmiTIKPWAXXJI1422-16-56 14:40:00 Test Item Value Reference Range Interpretation Comments MCV (test code = MCV) 80.1 80.0-94.0 [place] 098479-03-19 14:40:00 Test Item Value Reference Range Interpretation Comments MCH (test code = MCH) 25.8 pg 27.0-31.0 [facility] HospitalAyvukxaDNWKPJOYVN4168-30-10 14:40:00 Test Item Value Reference Range Interpretation Comments Hct (test code = Hct) 27.3 42.0-54.0 [facility] HospitalCuzgyuuFERDDAQQXH6149-69-98 14:40:00 Test Item Value Reference Range Interpretation Comments WBC (test code = WBC) 7.3 3.7-10.4 [facility] HospitalQwtifyxIZNPLPRQCT0005-73-86 14:40:00 Test Item Value Reference Range Interpretation Comments Basophils (test code = 1.3 See_Comment [Aut omated message] The Basophils) system which ge nerated this result tra nsmitted reference range : <=1.0. The reference r ondina was not used to int erpret this result as normal/abnormal . [facility] HospitalOcyedreCSHCMUFJRN3372-96-94 14:40:00 Test Item Value Reference Range Interpretation Comments Neutrophils # (test code = Neutrophils 4.6 1.5-8.1 #) [facility] HospitalUcmerlhIHVEOZTWRX0397-03-93 14:40:00 Test Item Value Reference Range Interpretation Comments Eosinophils (test code = 7.5 See_Comment [A utomated message] The Eosinophils) system which ge nerated this result tra nsmitted reference range : <=4.0. The reference r ondina was not used to int erpret this result as normal/abnormal . [facility] HospitalMrloonkQYXUEMCRZG8517-01-03 14:40:00 Test Item Value Reference Range Interpretation Comments Monocytes (test code = Monocytes) 8.8 2.0-12.0 [facility] HospitalMcoxhagQYEHYCFMDY6424-42-14 14:40:00 Test Item Value Reference Range Interpretation Comments Segs (test code = Segs) 63.4 45.0-75.0 [facility] HospitalYmjrcibDBBWRHUPOM2610-11-03 14:40:00 Test Item Value Reference Range Interpretation Comments Lymphocytes (test code = Lymphocytes) 19.0 20.0-40.0 [facility] HospitalNhqvsoeNSMPWUFJFF8150-23-73 14:40:00 Test Item Value Reference Range Interpretation Comments Eosinophils # (test code 0.5 See_Comment [A utomated message] The = Eosinophils #) system wh h generated this result tra nsmitted reference range : <=0.5. The reference r ondina was not used to int erpret this result as normal/abnormal . [facility] HospitalHjtinpgWGPMVHODTT3688-79-65 14:40:00 Test Item Value Reference Range Interpretation Comments Basophils # (test code 0.1 See_Comment [Aut omated message] The = Basophils #) system which generated this result tra nsmitted reference range : <=0.2. The reference r ondina was not used to int erpret this result as normal/abnormal . [facility] HospitalIxgpstoYDWFAHGVNQ0154-62-18 14:40:00 Test Item Value Reference Range Interpretation Comments Monocytes # (test code 0.6 See_Comment [Aut omated message] The = Monocytes #) system which generated this result tra nsmitted reference range : <=0.8. The reference r ondina was not used to int erpret this result as normal/abnormal . [facility]VRAKKQHWNZ9031-[facility] 14:40:00 Test Item Value Reference Range Interpretation Comments Lymphocytes # (test code = Lymphocytes 1.4 1.0-5.5 #) [facility]2019-03-19 11:30:00 Test Item Value Reference Range Interpretation Comments Calcium Lvl (test code = Calcium Lvl) 8.3 8.5-10.5 [facility]2019-03-19 11:30:00 Test Item Value Reference Range Interpretation Comments Potassium Lvl (test code = Potassium 4.3 3.5-5.1 Lvl) [facility]2019-03-19 11:30:00 Test Item Value Reference Range Interpretation Comments Sodium Lvl (test code = Sodium Lvl) 143 135-145 [facility]2019-03-19 11:30:00 Test Item Value Reference Range Interpretation Comments Chloride Lvl (test code = Chloride Lvl) 108 95-109 [facility]2019-03-19 11:30:00 Test Item Value Reference Range Interpretation Comments eGFR (test code = eGFR) 105 [facility]2019-03-19 11:30:00 Test Item Value Reference Range Interpretation Comments Creatinine Lvl (test code = Creatinine 0.66 0.50-1.40 Lvl) [facility]2019-03-19 11:30:00 Test Item Value Reference Range Interpretation Comments CO2 (test code = CO2) 29 24-32 [facility]2019-03-19 11:30:00 Test Item Value Reference Range Interpretation Comments BUN (test code = BUN) 14 7-22 [facility]2019-03-19 11:30:00 Test Item Value Reference Range Interpretation Comments Glucose Lvl (test code = Glucose Lvl) 79 70-99 [facility]2019-03-19 11:30:00 Test Item Value Reference Range Interpretation Comments AGAP (test code = AGAP) 10.3 10.0-20.0 [facility]ocwhuzYNHAAEMEZY2818-57-15 11:30:00 Test Item Value Reference Range Interpretation Comments Vanco Tr TND (test code = Vanco Tr TND) unk [place] [id number] 11:30:00 Test Item Value Reference Range Interpretation Comments Vanco Tr (test code = Vanco Tr) 12.8 [facility]2019-03-19 11:30:00 Test Item Value Reference Range Interpretation Comments Calcium Lvl (test code = Calcium Lvl) 8.3 8.5-10.5 [facility]2019-03-19 11:30:00 Test Item Value Reference Range Interpretation Comments Potassium Lvl (test code = Potassium 4.3 3.5-5.1 Lvl) [facility]2019-03-19 11:30:00 Test Item Value Reference Range Interpretation Comments Sodium Lvl (test code = Sodium Lvl) 143 135-145 [facility]2019-03-19 11:30:00 Test Item Value Reference Range Interpretation Comments Chloride Lvl (test code = Chloride Lvl) 108 95-109 [facility]2019-03-19 11:30:00 Test Item Value Reference Range Interpretation Comments eGFR (test code = eGFR) 105 [facility]2019-03-19 11:30:00 Test Item Value Reference Range Interpretation Comments Creatinine Lvl (test code = Creatinine 0.66 0.50-1.40 Lvl) [facility]2019-03-19 11:30:00 Test Item Value Reference Range Interpretation Comments CO2 (test code = CO2) 29 24-32 [facility]2019-03-19 11:30:00 Test Item Value Reference Range Interpretation Comments BUN (test code = BUN) 14 7-22 [facility]2019-03-19 11:30:00 Test Item Value Reference Range Interpretation Comments Glucose Lvl (test code = Glucose Lvl) 79 70-99 [facility]2019-03-19 11:30:00 Test Item Value Reference Range Interpretation Comments AGAP (test code = AGAP) 10.3 10.0-20.0 [place] [id number] 11:30:00 Test Item Value Reference Range Interpretation Comments Vanco Tr TND (test code = Vanco Tr TND) unk [place] [address]2019-03-19 11:30:00 Test Item Value Reference Range Interpretation Comments Vanco Tr (test code = Vanco Tr) 12.8 [facility] OMIOK6295-13-05 11:30:00 Test Item Value Reference Range Interpretation Comments Calcium Lvl (test code = Calcium Lvl) 8.3 8.5-10.5 [facility]annCHE[facility] [id number] 11:30:00 Test Item Value Reference Range Interpretation Comments Potassium Lvl (test code = Potassium 4.3 3.5-5.1 Lvl) [facility] XYVVK0701-99-36 11:30:00 Test Item Value Reference Range Interpretation Comments Sodium Lvl (test code = Sodium Lvl) 143 135-145 [facility] [id number] 11:30:00 Test Item Value Reference Range Interpretation Comments Chloride Lvl (test code = Chloride Lvl) 108 95-109 [facility] NGXHI7814-54-92 11:30:00 Test Item Value Reference Range Interpretation Comments eGFR (test code = eGFR) 105 [facility] XVAUZ4815-62-26 11:30:00 Test Item Value Reference Range Interpretation Comments Creatinine Lvl (test code = Creatinine 0.66 0.50-1.40 Lvl) [facility] FGIIT4359-49-19 11:30:00 Test Item Value Reference Range Interpretation Comments CO2 (test code = CO2) 29 24-32 [facility] WHKRI8823-24-23 11:30:00 Test Item Value Reference Range Interpretation Comments BUN (test code = BUN) 14 7-22 [facility] [id number] 11:30:00 Test Item Value Reference Range Interpretation Comments Glucose Lvl (test code = Glucose Lvl) 79 70-99 [facility] [id number] 11:30:00 Test Item Value Reference Range Interpretation Comments AGAP (test code = AGAP) 10.3 10.0-20.0 [facility] HospitalTecfenxTNHOMSUGUW0948-42-99 11:30:00 Test Item Value Reference Range Interpretation Comments Vanco Tr TND (test code = Vanco Tr TND) unk [facility] HospitalVnuirjhZQXSFOKZWE1193-79-97 11:30:00 Test Item Value Reference Range Interpretation Comments Vanco Tr (test code = Vanco Tr) 12.8 [facility]annCARDIAC GIBFYNR8953-17-58 17:35:00 Test Item Value Reference Range Interpretation Comments Troponin-I (test code no gt See_Comment [Auto mated message] The = Troponin-I) system which g enerated this result transmit garrett reference range : <=0.40. The reference r ondina was not used to interpr et this result as cassie l/abnormal. [facility] Tekmi2019-03-18 17:35:00 Test Item Value Reference Range Interpretation Comments Total CK (test code = Total CK) [address] [facility] Tekmi2019-03-18 17:35:00 Test Item Value Reference Range Interpretation Comments Troponin-I (test code no gt See_Comment [Auto mated message] The = Troponin-I) system which g enerated this result transmit garrett reference range : <=0.40. The reference r ondina was not used to interpr et this result as cassie l/abnormal. [facility] Tekmi2019-03-18 17:35:00 Test Item Value Reference Range Interpretation Comments Total CK (test code = Total CK) 33 [facility] 17:35:00 Test Item Value Reference Range Interpretation Comments Troponin-I (test code no gt See_Comment [Auto mated message] The = Troponin-I) system which g enerated this result transmit garrett reference range : <=0.40. The reference r ondina was not used to interpr et this result as cassie l/abnormal. [facility] Tekmi2019-03-18 17:35:00 Test Item Value Reference Range Interpretation Comments Total CK (test code = Total CK) [address] [facility] Tekmi2019-03-18 12:45:00 Test Item Value Reference Range Interpretation Comments Troponin-I (test code no gt See_Comment [Auto mated message] The = Troponin-I) system which g enerated this result transmit garrett reference range : <=0.40. The reference r ondina was not used to interpr et this result as cassie l/abnormal. [facility] Tekmi2019-03-18 12:45:00 Test Item Value Reference Range Interpretation Comments Total CK (test code = Total CK) [address] [facility] Tekmi2019-03-18 12:45:00 Test Item Value Reference Range Interpretation Comments Troponin-I (test code no gt See_Comment [Auto mated message] The = Troponin-I) system which g enerated this result transmit garrett reference range : <=0.40. The reference r ondina was not used to interpr et this result as cassie l/abnormal. [facility] HospitalMed[facility] [id number] 12:45:00 Test Item Value Reference Range Interpretation Comments Total CK (test code = Total CK) 33 [address] [facility] VDDREAZ3259-76-34 12:45:00 Test Item Value Reference Range Interpretation Comments Troponin-I (test code no gt See_Comment [Auto mated message] The = Troponin-I) system which g enerated this result transmit garrett reference range : <=0.40. The reference r ondina was not used to interpr et this result as cassie l/abnormal. [facility] HospitalZenbox DNYXFBQ3842-64-08 12:45:00 Test Item Value Reference Range Interpretation Comments Total CK (test code = Total CK) 33 12-191 [facility] HospitalPouqjuhFLNUGUWGNCEE0048-04-11 06:11:00 Test Item Value Reference Range Interpretation Comments AGAP (test code = AGAP) 9.1 10.0-20.0 [facility] HospitalRfllwqyOMQRJLVQKFEJ0651-57-82 06:11:00 Test Item Value Reference Range Interpretation Comments Sodium Lvl (test code = Sodium Lvl) 144 135-145 [facility] HospitalNfebvlhZXTKXHOEJWGZ8614-82-15 06:11:00 Test Item Value Reference Range Interpretation Comments Chloride Lvl (test code = Chloride Lvl) 108 95-109 [facility] HospitalLypdlmiTRPVOBCAELHI3512-51-90 06:11:00 Test Item Value Reference Range Interpretation Comments Potassium Lvl (test code = Potassium 4.1 3.5-5.1 Lvl) [facility] HospitalCusqhwuNORIYXJJYXAN1186-07-20 06:11:00 Test Item Value Reference Range Interpretation Comments CO2 (test code = CO2) 31 24-32 [facility] HospitalNfaljyhXWIJBABZXTXN3771-79-35 06:11:00 Test Item Value Reference Range Interpretation Comments BUN (test code = BUN) 15 7-22 [facility] HospitalWylciisJALQUIRIJYZL1220-60-28 06:11:00 Test Item Value Reference Range Interpretation Comments Glucose Lvl (test code = Glucose Lvl) 96 70-99 [facility]FxptdncTDYFIYFTVZUJ2063-82-98 06:11:00 Test Item Value Reference Range Interpretation Comments Creatinine Lvl (test code = Creatinine 0.72 0.50-1.40 Lvl) [facility] HospitalNsymbppLEIWMHCWDMQD3362-09-37 06:11:00 Test Item Value Reference Range Interpretation Comments eGFR (test code = eGFR) 102 [facility] HospitalUycldnvRGGWIOLCZJIY5637-11-09 06:11:00 Test Item Value Reference Range Interpretation Comments Calcium Lvl (test code = Calcium Lvl) 8.3 8.5-10.5 [facility] HospitalPdmfjhxIBOLUQIMHO9061-53-71 06:11:00 Test Item Value Reference Range Interpretation Comments MPV (test code = MPV) 8.0 7.4-10.4 [facility] HospitalUfnpgkuUWIKYQRLNB6827-28-08 06:11:00 Test Item Value Reference Range Interpretation Comments Platelet (test code = Platelet) 217 133-450 [facility] HospitalWxwetjeINJGLMMMSY3039-20-50 06:11:00 Test Item Value Reference Range Interpretation Comments RDW (test code = RDW) 18.6 11.5-14.5 [facility] HospitalWoxgwcjSSJJZGMLYW6900-64-14 06:11:00 Test Item Value Reference Range Interpretation Comments MCH (test code = MCH) 26.0 pg 27.0-31.0 [facility] HospitalEndcmnbXRHSRPGWQH3106-20-10 06:11:00 Test Item Value Reference Range Interpretation Comments MCV (test code = MCV) 81.5 80.0-94.0 [facility] HospitalYdezrbgZCUTQMNLIF2923-06-02 06:11:00 Test Item Value Reference Range Interpretation Comments MCHC (test code = MCHC) 31.9 32.0-36.0 [facility] HospitalGfwfqrmCZVNYNDXRH2162-88-67 06:11:00 Test Item Value Reference Range Interpretation Comments RBC (test code = RBC) 3.16 4.70-6.10 [facility] HospitalGqevzpsEIPMXVWFFB3817-89-46 06:11:00 Test Item Value Reference Range Interpretation Comments Hct (test code = Hct) 25.8 42.0-54.0 [facility] HospitalFkxkbiqLCKOIGDZPP7070-04-31 06:11:00 Test Item Value Reference Range Interpretation Comments Hgb (test code = Hgb) 8.2 14.0-18.0 [facility] HospitalBoskxipQIEYMZGZER5604-66-76 06:11:00 Test Item Value Reference Range Interpretation Comments WBC (test code = WBC) 7.5 3.7-10.4 [facility] HospitalSdkqlvnWECNMHOHNQ7645-82-89 06:11:00 Test Item Value Reference Range Interpretation Comments Monocytes # (test code 0.7 See_Comment [Aut omated message] The = Monocytes #) system which generated this result tra nsmitted reference range : <=0.8. The reference r ondina was not used to int erpret this result as normal/abnormal . [facility] HospitalTmxywaoLNRZDYIIWI5120-37-52 06:11:00 Test Item Value Reference Range Interpretation Comments Basophils # (test code 0.1 See_Comment [Aut omated message] The = Basophils #) system which generated this result tra nsmitted reference range : <=0.2. The reference r ondina was not used to int erpret this result as normal/abnormal . [facility] HospitalIowbuojDFMNECBHFE5229-64-27 06:11:00 Test Item Value Reference Range Interpretation Comments Eosinophils # (test code 0.4 See_Comment [A utomated message] The = Eosinophils #) system whic h generated this result tra nsmitted reference range : <=0.5. The reference r ondina was not used to int erpret this result as normal/abnormal . [facility] HospitalTjufvohIFWOUPYKBC5120-70-31 06:11:00 Test Item Value Reference Range Interpretation Comments Lymphocytes # (test code = Lymphocytes 1.6 1.0-5.5 #) [facility] HospitalDjdtrjbMAOVHOUBPU5391-70-83 06:11:00 Test Item Value Reference Range Interpretation Comments Neutrophils # (test code = Neutrophils 4.8 1.5-8.1 #) [facility] HospitalXdexgueFJZIHQIFPL1195-80-68 06:11:00 Test Item Value Reference Range Interpretation Comments Basophils (test code = 1.1 See_Comment [Aut omated message] The Basophils) system which ge nerated this result tra nsmitted reference range : <=1.0. The reference r ondina was not used to int erpret this result as normal/abnormal . [facility] HospitalFngcimjNNGBERJPSM0969-89-69 06:11:00 Test Item Value Reference Range Interpretation Comments Eosinophils (test code = 5.2 See_Comment [A utomated message] The Eosinophils) system which ge nerated this result tra nsmitted reference range : <=4.0. The reference r ondina was not used to int erpret this result as normal/abnormal . [facility] HospitalLxhybynXHIAJKFPKM9812-27-99 06:11:00 Test Item Value Reference Range Interpretation Comments Monocytes (test code = Monocytes) 9.1 2.0-12.0 [facility] HospitalGzhidopDKHADSOCLQ7698-29-59 06:11:00 Test Item Value Reference Range Interpretation Comments Lymphocytes (test code = Lymphocytes) 21.2 20.0-40.0 [facility] HospitalZefloaxPUUOLRJORZ6427-42-71 06:11:00 Test Item Value Reference Range Interpretation Comments Segs (test code = Segs) 63.4 45.0-75.0 [place] [address]2019-03-18 06:11:00 Test Item Value Reference Range Interpretation Comments Vanco Tr TND (test code = Vanco Tr 0030 1 TND) [place] [address]2019-03-18 06:11:00 Test Item Value Reference Range Interpretation Comments Vanco Tr (test code = Vanco Tr) 7.3 [facility] HospitalYlsvodeQUVYMNHAUJDU8803-36-97 06:11:00 Test Item Value Reference Range Interpretation Comments AGAP (test code = AGAP) 9.1 10.0-20.0 [facility] HospitalYeuwnkgIHXNKIPONPEU0699-65-05 06:11:00 Test Item Value Reference Range Interpretation Comments Sodium Lvl (test code = Sodium Lvl) 144 135-145 [facility] HospitalSwerahnQJKWHMFFLQUS3564-06-83 06:11:00 Test Item Value Reference Range Interpretation Comments Chloride Lvl (test code = Chloride Lvl) 108 95-109 [facility] HospitalXnvvksyKLTYPHKSYFQJ3135-97-49 06:11:00 Test Item Value Reference Range Interpretation Comments Potassium Lvl (test code = Potassium 4.1 3.5-5.1 Lvl) [facility] HospitalJnjsuvtIDKMGEMEQRKI4591-79-44 06:11:00 Test Item Value Reference Range Interpretation Comments CO2 (test code = CO2) 31 24-32 [facility] HospitalVlejkooFYUQJPWJQSIH7193-70-66 06:11:00 Test Item Value Reference Range Interpretation Comments BUN (test code = BUN) 15 7-22 [facility] HospitalQopiyoiFQYFRYXTWXUW9019-21-18 06:11:00 Test Item Value Reference Range Interpretation Comments Glucose Lvl (test code = Glucose Lvl) 96 70-99 [facility] HospitalTtoeylqQFKYZWEIPWUV9908-62-62 06:11:00 Test Item Value Reference Range Interpretation Comments Creatinine Lvl (test code = Creatinine 0.72 0.50-1.40 Lvl) [facility] HospitalJqaluycNODHNJYUSAFC5293-90-26 06:11:00 Test Item Value Reference Range Interpretation Comments eGFR (test code = eGFR) 102 [facility] HospitalSiqvgicOIBZTKYKWRUX8942-46-36 06:11:00 Test Item Value Reference Range Interpretation Comments Calcium Lvl (test code = Calcium Lvl) 8.3 8.5-10.5 [facility] HospitalCoewujmYIGRXQVDHR1569-61-58 06:11:00 Test Item Value Reference Range Interpretation Comments MPV (test code = MPV) 8.0 7.4-10.4 [facility] HospitalViilfuqBRCSXUCOAN9809-46-99 06:11:00 Test Item Value Reference Range Interpretation Comments Platelet (test code = Platelet) 217 133-450 [facility] HospitalFyjwryjTLEXUGOEHD6569-96-48 06:11:00 Test Item Value Reference Range Interpretation Comments RDW (test code = RDW) 18.6 11.5-14.5 [facility] HospitalFzrojohPXQDBMENFW3053-75-88 06:11:00 Test Item Value Reference Range Interpretation Comments MCH (test code = MCH) 26.0 pg 27.0-31.0 [facility] HospitalBkavzboJTPJXRQPRQ0407-04-88 06:11:00 Test Item Value Reference Range Interpretation Comments MCV (test code = MCV) 81.5 80.0-94.0 [facility] HospitalFkivrgbSNPIARFHVW3497-21-77 06:11:00 Test Item Value Reference Range Interpretation Comments MCHC (test code = MCHC) 31.9 32.0-36.0 [facility] HospitalHgfeyquUPSHRIASFU4966-47-95 06:11:00 Test Item Value Reference Range Interpretation Comments RBC (test code = RBC) 3.16 4.70-6.10 [facility] HospitalHsjkfgyWFJNJTCMSY6995-84-88 06:11:00 Test Item Value Reference Range Interpretation Comments Hct (test code = Hct) 25.8 42.0-54.0 [facility] HospitalVigactbZNINUONIKT4026-73-18 06:11:00 Test Item Value Reference Range Interpretation Comments Hgb (test code = Hgb) 8.2 14.0-18.0 [facility] HospitalCsfibfyYDEAVHXSUY9679-82-93 06:11:00 Test Item Value Reference Range Interpretation Comments WBC (test code = WBC) 7.5 3.7-10.4 [facility] HospitalPvtvkjaAWDPKYOKKC4613-15-42 06:11:00 Test Item Value Reference Range Interpretation Comments Monocytes # (test code 0.7 See_Comment [Aut omated message] The = Monocytes #) system which generated this result tra nsmitted reference range : <=0.8. The reference r ondina was not used to int erpret this result as normal/abnormal . [facility] HospitalAlzsxfhCSGXGBPCKH4868-18-00 06:11:00 Test Item Value Reference Range Interpretation Comments Basophils # (test code 0.1 See_Comment [Aut omated message] The = Basophils #) system which generated this result tra nsmitted reference range : <=0.2. The reference r ondina was not used to int erpret this result as normal/abnormal . [facility] HospitalKiqgaewCRZHVRJMGP7959-37-85 06:11:00 Test Item Value Reference Range Interpretation Comments Eosinophils # (test code 0.4 See_Comment [A utomated message] The = Eosinophils #) system whic h generated this result tra nsmitted reference range : <=0.5. The reference r ondina was not used to int erpret this result as normal/abnormal . [facility]KgqkaphBIKTIWMMLC4596-54-17 06:11:00 Test Item Value Reference Range Interpretation Comments Lymphocytes # (test code = Lymphocytes 1.6 1.0-5.5 #) [facility] HospitalOvgarohLPUXATCRPN6581-89-83 06:11:00 Test Item Value Reference Range Interpretation Comments Neutrophils # (test code = Neutrophils 4.8 1.5-8.1 #) [facility] HospitalBogtzjqAVSBIMAOAN3885-40-85 06:11:00 Test Item Value Reference Range Interpretation Comments Basophils (test code = 1.1 See_Comment [Aut omated message] The Basophils) system which ge nerated this result tra nsmitted reference range : <=1.0. The reference r ondina was not used to int erpret this result as normal/abnormal . [facility] HospitalNloquxzCGYIMGDNQM0518-18-08 06:11:00 Test Item Value Reference Range Interpretation Comments Eosinophils (test code = 5.2 See_Comment [A utomated message] The Eosinophils) system which ge nerated this result tra nsmitted reference range : <=4.0. The reference r ondina was not used to int erpret this result as normal/abnormal . [facility] HospitalAlscysmKGQFKMBJBC7323-92-29 06:11:00 Test Item Value Reference Range Interpretation Comments Monocytes (test code = Monocytes) 9.1 2.0-12.0 [facility] HospitalLlgohxzKKLSFUTQJT6612-88-94 06:11:00 Test Item Value Reference Range Interpretation Comments Lymphocytes (test code = Lymphocytes) 21.2 20.0-40.0 [facility] HospitalOhtkrlfUXUSMETGAG1505-78-54 06:11:00 Test Item Value Reference Range Interpretation Comments Segs (test code = Segs) 63.4 45.0-75.0 [place] [id number] 06:11:00 Test Item Value Reference Range Interpretation Comments Vanco Tr TND (test code = Vanco Tr 0030 1 TND) [place] [id number] 06:11:00 Test Item Value Reference Range Interpretation Comments Vanco Tr (test code = Vanco Tr) 7.3 [facility] HospitalIojynksQTPIBIUWBMOY3001-03-55 06:11:00 Test Item Value Reference Range Interpretation Comments AGAP (test code = AGAP) 9.1 10.0-20.0 [facility] HospitalDlqazegYEAXEZXJADCQ0981-64-78 06:11:00 Test Item Value Reference Range Interpretation Comments Sodium Lvl (test code = Sodium Lvl) 144 135-145 [facility] HospitalRohrdtzEJFFWBWFHXML9363-42-93 06:11:00 Test Item Value Reference Range Interpretation Comments Chloride Lvl (test code = Chloride Lvl) 108 95-109 [facility] HospitalImfoopgICFELIXWWXPJ8251-54-75 06:11:00 Test Item Value Reference Range Interpretation Comments Potassium Lvl (test code = Potassium 4.1 3.5-5.1 Lvl) [facility] HospitalAqvkrqqYEESMVHHCSTK0943-16-19 06:11:00 Test Item Value Reference Range Interpretation Comments CO2 (test code = CO2) 31 24-32 [facility] HospitalGlhcaqxEVPPMGEYRGTW8937-48-44 06:11:00 Test Item Value Reference Range Interpretation Comments BUN (test code = BUN) 15 7-22 [facility] HospitalBfgnamqWYZLBNDYCLUC0717-60-87 06:11:00 Test Item Value Reference Range Interpretation Comments Glucose Lvl (test code = Glucose Lvl) 96 70-99 [facility] HospitalRshmnqyGRXKANLJXVBI0293-44-07 06:11:00 Test Item Value Reference Range Interpretation Comments Creatinine Lvl (test code = Creatinine 0.72 0.50-1.40 Lvl) [facility] HospitalWekskmxBLTPKLEQONVL4475-36-13 06:11:00 Test Item Value Reference Range Interpretation Comments eGFR (test code = eGFR) 102 [facility] HospitalEjhpfklAHXJYINCPBLO8329-94-99 06:11:00 Test Item Value Reference Range Interpretation Comments Calcium Lvl (test code = Calcium Lvl) 8.3 8.5-10.5 [facility] HospitalShsgsarMHRRSECOBQ1889-74-58 06:11:00 Test Item Value Reference Range Interpretation Comments MPV (test code = MPV) 8.0 7.4-10.4 [facility] HospitalHigquhwUYBJIILQAX9266-54-18 06:11:00 Test Item Value Reference Range Interpretation Comments Platelet (test code = Platelet) 217 133-450 [facility] HospitalUflfvleCANZWIZTTC9894-11-41 06:11:00 Test Item Value Reference Range Interpretation Comments RDW (test code = RDW) 18.6 11.5-14.5 [facility] HospitalUyfjijoCLNOSPYLOQ1762-21-99 06:11:00 Test Item Value Reference Range Interpretation Comments MCH (test code = MCH) 26.0 pg 27.0-31.0 [facility] HospitalCfxrmawSJMXKJQZEP0736-76-71 06:11:00 Test Item Value Reference Range Interpretation Comments MCV (test code = MCV) 81.5 80.0-94.0 [facility] HospitalQevsxqqTJISFSEZDB1025-96-21 06:11:00 Test Item Value Reference Range Interpretation Comments MCHC (test code = MCHC) 31.9 32.0-36.0 [facility] HospitalEnsyuaeCVDPOSCKNI1188-60-86 06:11:00 Test Item Value Reference Range Interpretation Comments RBC (test code = RBC) 3.16 4.70-6.10 [facility] HospitalOlmrtdtSYNNLRSMVN9231-22-08 06:11:00 Test Item Value Reference Range Interpretation Comments Hct (test code = Hct) 25.8 42.0-54.0 [facility] HospitalBgraxasIRJKISHQGP1591-66-63 06:11:00 Test Item Value Reference Range Interpretation Comments Hgb (test code = Hgb) 8.2 14.0-18.0 [facility] HospitalIlufbizEMVLQFCAUC6078-38-59 06:11:00 Test Item Value Reference Range Interpretation Comments WBC (test code = WBC) 7.5 3.7-10.4 [facility] HospitalIfzgjxnEEGOXEEHNV4445-44-00 06:11:00 Test Item Value Reference Range Interpretation Comments Monocytes # (test code 0.7 See_Comment [Aut omated message] The = Monocytes #) system which generated this result tra nsmitted reference range : <=0.8. The reference r ondina was not used to int erpret this result as normal/abnormal . [facility] HospitalJchmwwqJEZVQOADQI5478-76-93 06:11:00 Test Item Value Reference Range Interpretation Comments Basophils # (test code 0.1 See_Comment [Aut omated message] The = Basophils #) system which generated this result tra nsmitted reference range : <=0.2. The reference r ondina was not used to int erpret this result as normal/abnormal . [facility] HospitalCornarfPVRSMQDUMV2796-23-89 06:11:00 Test Item Value Reference Range Interpretation Comments Eosinophils # (test code 0.4 See_Comment [A utomated message] The = Eosinophils #) system whic h generated this result tra nsmitted reference range : <=0.5. The reference r ondina was not used to int erpret this result as normal/abnormal . [facility] HospitalKiccwgtMFXLEYCPYJ4745-02-28 06:11:00 Test Item Value Reference Range Interpretation Comments Lymphocytes # (test code = Lymphocytes 1.6 1.0-5.5 #) [facility] HospitalBgtjerdCTBYJLMPVY4184-97-49 06:11:00 Test Item Value Reference Range Interpretation Comments Neutrophils # (test code = Neutrophils 4.8 1.5-8.1 #) [facility] HospitalDcekvaeJIWXZFWLUO9206-72-35 06:11:00 Test Item Value Reference Range Interpretation Comments Basophils (test code = 1.1 See_Comment [Aut omated message] The Basophils) system which ge nerated this result tra nsmitted reference range : <=1.0. The reference r ondina was not used to int erpret this result as normal/abnormal . [facility] HospitalOhcvpwnNVPNTAMVGS6291-87-49 06:11:00 Test Item Value Reference Range Interpretation Comments Eosinophils (test code = 5.2 See_Comment [A utomated message] The Eosinophils) system which ge nerated this result tra nsmitted reference range : <=4.0. The reference r ondina was not used to int erpret this result as normal/abnormal . [facility] HospitalCjzraerSRWTVFJVXV5768-86-05 06:11:00 Test Item Value Reference Range Interpretation Comments Monocytes (test code = Monocytes) 9.1 2.0-12.0 [facility] HospitalTjxlyosSIOBKTAGKS0575-87-65 06:11:00 Test Item Value Reference Range Interpretation Comments Lymphocytes (test code = Lymphocytes) 21.2 20.0-40.0 [facility] HospitalPhkuipeCZTPHZDPNL3809-93-18 06:11:00 Test Item Value Reference Range Interpretation Comments Segs (test code = Segs) 63.4 45.0-75.0 [place] [address]2019-03-18 06:11:00 Test Item Value Reference Range Interpretation Comments Vanco Tr TND (test code = Vanco Tr 0030 1 TND) [place] [address]2019-03-18 06:11:00 Test Item Value Reference Range Interpretation Comments Vanco Tr (test code = Vanco Tr) 7.3 [facility]2019-03-17 10:50:00 Test Item Value Reference Range Interpretation Comments Magnesium Lvl (test code = Magnesium 1.8 1.8-2.4 Lvl) [facility]2019-03-17 10:50:00 Test Item Value Reference Range Interpretation Comments Phosphorus (test code = Phosphorus) 3.3 2.5-4.5 [facility] HospitalSuhecfrRSMPUWPQXJKW1822-31-62 10:50:00 Test Item Value Reference Range Interpretation Comments AGAP (test code = AGAP) 9.9 10.0-20.0 [facility] HospitalWqzvlqbFMNCFVJQORLY6802-33-49 10:50:00 Test Item Value Reference Range Interpretation Comments Calcium Lvl (test code = Calcium Lvl) 7.9 8.5-10.5 [facility] HospitalSrgfczsCGMLRKDFMIHT2596-22-23 10:50:00 Test Item Value Reference Range Interpretation Comments eGFR (test code = eGFR) 101 [facility] HospitalGeiyodxPQDVMDONMITU5585-28-34 10:50:00 Test Item Value Reference Range Interpretation Comments Creatinine Lvl (test code = Creatinine 0.72 0.50-1.40 Lvl) [facility] HospitalYwxsupfPIPBHMXTMXLJ1236-62-18 10:50:00 Test Item Value Reference Range Interpretation Comments Sodium Lvl (test code = Sodium Lvl) 143 135-145 [facility] HospitalMuuvcijOODFCPLPWTJD1844-77-49 10:50:00 Test Item Value Reference Range Interpretation Comments Potassium Lvl (test code = Potassium 3.9 3.5-5.1 Lvl) [facility] HospitalTfqbmabKGZFXDKUYTEN9114-92-20 10:50:00 Test Item Value Reference Range Interpretation Comments Chloride Lvl (test code = Chloride Lvl) 109 95-109 [facility] HospitalTupjseiZQWSPKIBEHMF7093-20-39 10:50:00 Test Item Value Reference Range Interpretation Comments BUN (test code = BUN) 15 7-22 [facility] HospitalDxouimhDBGQRPMMVLSX9063-71-28 10:50:00 Test Item Value Reference Range Interpretation Comments CO2 (test code = CO2) 28 24-32 [facility] HospitalAqwtwpfYCEEALDZUGID5917-70-65 10:50:00 Test Item Value Reference Range Interpretation Comments Glucose Lvl (test code = Glucose Lvl) 121 70-99 [facility] HospitalYfljilwLSXLSZDNBV4505-82-26 10:50:00 Test Item Value Reference Range Interpretation Comments Basophils # (test code 0.1 See_Comment [Aut omated message] The = Basophils #) system which generated this result tra nsmitted reference range : <=0.2. The reference r ondina was not used to int erpret this result as normal/abnormal . [facility] HospitalXqzsfqhCQONOUZICH7942-80-32 10:50:00 Test Item Value Reference Range Interpretation Comments Neutrophils # (test code = Neutrophils 4.6 1.5-8.1 #) [facility] HospitalMrapiycRBVBFWAYGQ5675-67-33 10:50:00 Test Item Value Reference Range Interpretation Comments Lymphocytes # (test code = Lymphocytes 1.5 1.0-5.5 #) [facility] HospitalFqhxmwkGZLYUXYKRC2080-69-76 10:50:00 Test Item Value Reference Range Interpretation Comments Lymphocytes (test code = Lymphocytes) 22.0 20.0-40.0 [facility] HospitalKohxhffTLKZAADDMP0030-89-23 10:50:00 Test Item Value Reference Range Interpretation Comments Monocytes (test code = Monocytes) 6.9 2.0-12.0 [facility] HospitalXlyvjeyHFTLYZOWWJ1166-01-89 10:50:00 Test Item Value Reference Range Interpretation Comments Basophils (test code = 0.7 See_Comment [Aut omated message] The Basophils) system which ge nerated this result tra nsmitted reference range : <=1.0. The reference r ondina was not used to int erpret this result as normal/abnormal . [facility] HospitalKnjhocsEMECAYLTPJ8510-31-29 10:50:00 Test Item Value Reference Range Interpretation Comments Eosinophils (test code = 4.5 See_Comment [A utomated message] The Eosinophils) system which ge nerated this result tra nsmitted reference range : <=4.0. The reference r ondina was not used to int erpret this result as normal/abnormal . [facility] HospitalZgygfdvHAOCYXRHXQ7703-41-17 10:50:00 Test Item Value Reference Range Interpretation Comments Monocytes # (test code 0.5 See_Comment [Aut omated message] The = Monocytes #) system which generated this result tra nsmitted reference range : <=0.8. The reference r ondina was not used to int erpret this result as normal/abnormal . [facility] HospitalLmlzigeIENQZZZRCB4978-94-68 10:50:00 Test Item Value Reference Range Interpretation Comments Eosinophils # (test code 0.3 See_Comment [A utomated message] The = Eosinophils #) system whic h generated this result tra nsmitted reference range : <=0.5. The reference r ondina was not used to int erpret this result as normal/abnormal . [facility] HospitalPqiryqhLXDOCHCZYQ1798-27-96 10:50:00 Test Item Value Reference Range Interpretation Comments Segs (test code = Segs) 65.9 45.0-75.0 [facility] HospitalSoisqnuTYOLQAJEVC4706-11-34 10:50:00 Test Item Value Reference Range Interpretation Comments MCH (test code = MCH) 26.3 pg 27.0-31.0 [facility] HospitalSesrxvxEDUWULUNZL3056-20-17 10:50:00 Test Item Value Reference Range Interpretation Comments MCHC (test code = MCHC) 32.2 32.0-36.0 [facility] HospitalKgfzuafVXTEXHKWLE4115-71-88 10:50:00 Test Item Value Reference Range Interpretation Comments Hct (test code = Hct) 24.2 42.0-54.0 [facility] HospitalJaieidjRQICKRYOBO6746-77-55 10:50:00 Test Item Value Reference Range Interpretation Comments MCV (test code = MCV) 81.7 80.0-94.0 [facility] HospitalTofbhifZMOARUAGPN5129-29-10 10:50:00 Test Item Value Reference Range Interpretation Comments Platelet (test code = Platelet) 200 133-450 [facility] HospitalHsvveogGIJSCNXEQR9574-10-34 10:50:00 Test Item Value Reference Range Interpretation Comments RDW (test code = RDW) 18.4 11.5-14.5 [facility] HospitalXgaqyguABPXVOWVLG9292-05-04 10:50:00 Test Item Value Reference Range Interpretation Comments MPV (test code = MPV) 8.2 7.4-10.4 [facility] HospitalGeywzywAPZDBXABGF9113-75-73 10:50:00 Test Item Value Reference Range Interpretation Comments RBC (test code = RBC) 2.96 4.70-6.10 [facility] HospitalRlspbzeOHKFQNLKXE0119-63-06 10:50:00 Test Item Value Reference Range Interpretation Comments Hgb (test code = Hgb) 7.8 14.0-18.0 [facility] HospitalOiciqteQNAZPSGNEB4663-23-21 10:50:00 Test Item Value Reference Range Interpretation Comments WBC (test code = WBC) 7.0 3.7-10.4 [facility]QskzuzrWBSMYXQCQI0939-80-13 10:50:00 Test Item Value Reference Range Interpretation Comments Vanco Tr (test code = Vanco Tr) 21.8 [facility] CenterYbmtecuHMGGGTMVQY0503-10-07 10:50:00 Test Item Value Reference Range Interpretation Comments Vanco Tr TND (test code = Vanco Tr TND) unk [facility]2019-03-17 10:50:00 Test Item Value Reference Range Interpretation Comments Magnesium Lvl (test code = Magnesium 1.8 1.8-2.4 Lvl) [facility]CHE[facility] RWXCP8451-97-17 10:50:00 Test Item Value Reference Range Interpretation Comments Phosphorus (test code = Phosphorus) 3.3 2.5-4.5 [facility] HospitalAjearxuYWZDMNCLNDGH7492-55-54 10:50:00 Test Item Value Reference Range Interpretation Comments AGAP (test code = AGAP) 9.9 10.0-20.0 [facility] HospitalYfyuncpTGEPDUGIOLTP4298-32-48 10:50:00 Test Item Value Reference Range Interpretation Comments Calcium Lvl (test code = Calcium Lvl) 7.9 8.5-10.5 [facility] HospitalWgikvstNQPBDRBZVWZB9499-79-91 10:50:00 Test Item Value Reference Range Interpretation Comments eGFR (test code = eGFR) 101 [facility] HospitalXwldeljKBCIQCMIYPZF1592-49-79 10:50:00 Test Item Value Reference Range Interpretation Comments Creatinine Lvl (test code = Creatinine 0.72 0.50-1.40 Lvl) [facility] HospitalMqznzslMPOOGPZOKMWP2243-66-76 10:50:00 Test Item Value Reference Range Interpretation Comments Sodium Lvl (test code = Sodium Lvl) 143 135-145 [facility] HospitalUfzxwuwYEZOUPATRZCJ5122-07-72 10:50:00 Test Item Value Reference Range Interpretation Comments Potassium Lvl (test code = Potassium 3.9 3.5-5.1 Lvl) [facility] HospitalOvtmrwpEEZXQMDMYGBR1726-70-23 10:50:00 Test Item Value Reference Range Interpretation Comments Chloride Lvl (test code = Chloride Lvl) 109 95-109 [facility] HospitalVebwlblSQCTBQDJAUKS7520-80-95 10:50:00 Test Item Value Reference Range Interpretation Comments BUN (test code = BUN) 15 7-22 [facility] HospitalUkcxunqENFDWLEPSCHK5039-46-71 10:50:00 Test Item Value Reference Range Interpretation Comments CO2 (test code = CO2) 28 24-32 [facility] HospitalFhevizxIGYQKGDBLQZD7475-57-63 10:50:00 Test Item Value Reference Range Interpretation Comments Glucose Lvl (test code = Glucose Lvl) 121 70-99 [facility] HospitalBbrduorIHXARZPWUN4057-76-69 10:50:00 Test Item Value Reference Range Interpretation Comments Basophils # (test code 0.1 See_Comment [Aut omated message] The = Basophils #) system which generated this result tra nsmitted reference range : <=0.2. The reference r ondina was not used to int erpret this result as normal/abnormal . [facility] HospitalApjxbilJLQQZSSBIS7514-45-75 10:50:00 Test Item Value Reference Range Interpretation Comments Neutrophils # (test code = Neutrophils 4.6 1.5-8.1 #) [facility] HospitalPpujxrzOLQXPGAYTB0051-51-46 10:50:00 Test Item Value Reference Range Interpretation Comments Lymphocytes # (test code = Lymphocytes 1.5 1.0-5.5 #) [facility] HospitalEeljmnlHXGNYRPISJ4183-32-86 10:50:00 Test Item Value Reference Range Interpretation Comments Lymphocytes (test code = Lymphocytes) 22.0 20.0-40.0 [facility] HospitalGjevtvnPRFBGLTKMK4008-16-59 10:50:00 Test Item Value Reference Range Interpretation Comments Monocytes (test code = Monocytes) 6.9 2.0-12.0 [facility] HospitalMxyceuaITTIQUMARH7654-73-65 10:50:00 Test Item Value Reference Range Interpretation Comments Basophils (test code = 0.7 See_Comment [Aut omated message] The Basophils) system which ge nerated this result tra nsmitted reference range : <=1.0. The reference r ondina was not used to int erpret this result as normal/abnormal . [facility] HospitalPasfwjaSBCKPVQUNJ9643-68-36 10:50:00 Test Item Value Reference Range Interpretation Comments Eosinophils (test code = 4.5 See_Comment [A utomated message] The Eosinophils) system which ge nerated this result tra nsmitted reference range : <=4.0. The reference r ondina was not used to int erpret this result as normal/abnormal . [facility] HospitalGxzziliBAMKAIULTH4575-54-27 10:50:00 Test Item Value Reference Range Interpretation Comments Monocytes # (test code 0.5 See_Comment [Aut omated message] The = Monocytes #) system which generated this result tra nsmitted reference range : <=0.8. The reference r ondina was not used to int erpret this result as normal/abnormal . [facility] HospitalBmehmusHVTKKTDVNY8643-42-51 10:50:00 Test Item Value Reference Range Interpretation Comments Eosinophils # (test code 0.3 See_Comment [A utomated message] The = Eosinophils #) system whic h generated this result tra nsmitted reference range : <=0.5. The reference r ondina was not used to int erpret this result as normal/abnormal . [facility] HospitalYkgygyqJKEZIRIWTP9580-44-79 10:50:00 Test Item Value Reference Range Interpretation Comments Segs (test code = Segs) 65.9 45.0-75.0 [facility] HospitalJprajyyGGIAAZYPOF1516-42-04 10:50:00 Test Item Value Reference Range Interpretation Comments MCH (test code = MCH) 26.3 pg 27.0-31.0 [facility] HospitalZcsnpigFSEIDAEWRM5801-06-26 10:50:00 Test Item Value Reference Range Interpretation Comments MCHC (test code = MCHC) 32.2 32.0-36.0 [facility] HospitalWyvgkraORYZACFXUD4081-85-33 10:50:00 Test Item Value Reference Range Interpretation Comments Hct (test code = Hct) 24.2 42.0-54.0 [facility]YtmhcznTKYAUJPOOE6145-71-12 10:50:00 Test Item Value Reference Range Interpretation Comments MCV (test code = MCV) 81.7 80.0-94.0 [facility]SldgagrBDDVPUPPOS1685-87-32 10:50:00 Test Item Value Reference Range Interpretation Comments Platelet (test code = Platelet) 200 133-450 [facility]ErxlrnuBOQELHEBIW0845-96-32 10:50:00 Test Item Value Reference Range Interpretation Comments RDW (test code = RDW) 18.4 11.5-14.5 [facility]PvupqafTHZZZUTATM3307-57-51 10:50:00 Test Item Value Reference Range Interpretation Comments MPV (test code = MPV) 8.2 7.4-10.4 [facility] CenterTmjxocdCNRSUSHCMQ7710-47-91 10:50:00 Test Item Value Reference Range Interpretation Comments RBC (test code = RBC) 2.96 4.70-6.10 [facility] CenterHxyjllaCMCSVKNYXH5342-68-84 10:50:00 Test Item Value Reference Range Interpretation Comments Hgb (test code = Hgb) 7.8 14.0-18.0 [facility] HospitalXyjchykTUVPFSVLNC3925-02-02 10:50:00 Test Item Value Reference Range Interpretation Comments WBC (test code = WBC) 7.0 3.7-10.4 [facility]MowhmwgXBIDYLEIEA6494-51-74 10:50:00 Test Item Value Reference Range Interpretation Comments Vanco Tr (test code = Vanco Tr) 21.8 [facility] CenterArdwiinPHHUSJCXAS4103-52-22 10:50:00 Test Item Value Reference Range Interpretation Comments Vanco Tr TND (test code = Vanco Tr TND) unk [facility]landsCHEM NDLPJ1442-36-02 10:50:00 Test Item Value Reference Range Interpretation Comments Magnesium Lvl (test code = Magnesium 1.8 1.8-2.4 Lvl) [facility]CHE[facility] FMGPY3888-57-58 10:50:00 Test Item Value Reference Range Interpretation Comments Phosphorus (test code = Phosphorus) 3.3 2.5-4.5 [facility] HospitalEzyffehLMMMUGJXFGCD6884-36-87 10:50:00 Test Item Value Reference Range Interpretation Comments AGAP (test code = AGAP) 9.9 10.0-20.0 [facility] HospitalUqktdqpYLDXDKLQJNMZ3116-99-25 10:50:00 Test Item Value Reference Range Interpretation Comments Calcium Lvl (test code = Calcium Lvl) 7.9 8.5-10.5 [facility] HospitalWxcgxvoKCSWIGEUDVOR5910-80-71 10:50:00 Test Item Value Reference Range Interpretation Comments eGFR (test code = eGFR) 101 [facility] HospitalMunehydLELEMIOVALGC1685-30-54 10:50:00 Test Item Value Reference Range Interpretation Comments Creatinine Lvl (test code = Creatinine 0.72 0.50-1.40 Lvl) [facility] HospitalYibnfmiQWRTLMVRSXVQ5299-50-75 10:50:00 Test Item Value Reference Range Interpretation Comments Sodium Lvl (test code = Sodium Lvl) 143 135-145 [facility] HospitalUrchjmuBXRIARQNWWNP7902-34-86 10:50:00 Test Item Value Reference Range Interpretation Comments Potassium Lvl (test code = Potassium 3.9 3.5-5.1 Lvl) [facility] HospitalHppetiwVRSBERPZYPAK7542-72-89 10:50:00 Test Item Value Reference Range Interpretation Comments Chloride Lvl (test code = Chloride Lvl) 109 95-109 [facility] HospitalVtpbfvbVOUDLZJCACAB3566-89-58 10:50:00 Test Item Value Reference Range Interpretation Comments BUN (test code = BUN) 15 7-22 [facility] HospitalKrstbusMONEGIQCFUZO1461-38-82 10:50:00 Test Item Value Reference Range Interpretation Comments CO2 (test code = CO2) 28 24-32 [facility] HospitalYgnqpqnIRNVPKPQOZVI4761-59-53 10:50:00 Test Item Value Reference Range Interpretation Comments Glucose Lvl (test code = Glucose Lvl) 121 70-99 [facility]PenbttkBGGCWJEHCU0176-45-48 10:50:00 Test Item Value Reference Range Interpretation Comments Basophils # (test code 0.1 See_Comment [Aut omated message] The = Basophils #) system which generated this result tra nsmitted reference range : <=0.2. The reference r ondina was not used to int erpret this result as normal/abnormal . [facility]MfxwdpjGMYPGZDPZE8856-33-89 10:50:00 Test Item Value Reference Range Interpretation Comments Neutrophils # (test code = Neutrophils 4.6 1.5-8.1 #) [facility] HospitalQdcvzypDEQIKTSIVD3998-85-52 10:50:00 Test Item Value Reference Range Interpretation Comments Lymphocytes # (test code = Lymphocytes 1.5 1.0-5.5 #) [facility] HospitalVbpikflRGHWJKCVFP5903-75-97 10:50:00 Test Item Value Reference Range Interpretation Comments Lymphocytes (test code = Lymphocytes) 22.0 20.0-40.0 [facility] HospitalSlyyfqmCJOASDAVYX2499-37-07 10:50:00 Test Item Value Reference Range Interpretation Comments Monocytes (test code = Monocytes) 6.9 2.0-12.0 [facility] HospitalHltyndgOKNCXRNOJW3453-31-21 10:50:00 Test Item Value Reference Range Interpretation Comments Basophils (test code = 0.7 See_Comment [Aut omated message] The Basophils) system which ge nerated this result tra nsmitted reference range : <=1.0. The reference r ondina was not used to int erpret this result as normal/abnormal . [facility] HospitalLelldjzHWSCHFVDMZ6869-62-26 10:50:00 Test Item Value Reference Range Interpretation Comments Eosinophils (test code = 4.5 See_Comment [A utomated message] The Eosinophils) system which ge nerated this result tra nsmitted reference range : <=4.0. The reference r ondina was not used to int erpret this result as normal/abnormal . [facility] HospitalHpwjwapOELHIGJXGC3612-21-13 10:50:00 Test Item Value Reference Range Interpretation Comments Monocytes # (test code 0.5 See_Comment [Aut omated message] The = Monocytes #) system which generated this result tra nsmitted reference range : <=0.8. The reference r ondina was not used to int erpret this result as normal/abnormal . [facility] HospitalEzhwlzaUHGGDMLHZH6754-15-47 10:50:00 Test Item Value Reference Range Interpretation Comments Eosinophils # (test code 0.3 See_Comment [A utomated message] The = Eosinophils #) system whic h generated this result tra nsmitted reference range : <=0.5. The reference r ondina was not used to int erpret this result as normal/abnormal . [facility] HospitalKstwyuiMDLSKKUMOQ9243-81-60 10:50:00 Test Item Value Reference Range Interpretation Comments Segs (test code = Segs) 65.9 45.0-75.0 [facility] HospitalKytpnbuUQGPNTSOLE5685-32-46 10:50:00 Test Item Value Reference Range Interpretation Comments MCH (test code = MCH) 26.3 pg 27.0-31.0 [facility]PcwjtaqMQZNFYYEDY6712-14-75 10:50:00 Test Item Value Reference Range Interpretation Comments MCHC (test code = MCHC) 32.2 32.0-36.0 [facility]landsRburbbaVWZKDIFLHC6412-33-36 10:50:00 Test Item Value Reference Range Interpretation Comments Hct (test code = Hct) 24.2 42.0-54.0 [facility]landsScqxdrjTULSLNYUKL1859-37-55 10:50:00 Test Item Value Reference Range Interpretation Comments MCV (test code = MCV) 81.7 80.0-94.0 [facility]landsJsowefaDAEUPPCYJB4724-24-66 10:50:00 Test Item Value Reference Range Interpretation Comments Platelet (test code = Platelet) 200 133-450 [facility] HospitalCvmlbodELDQNNHNRA9458-33-66 10:50:00 Test Item Value Reference Range Interpretation Comments RDW (test code = RDW) 18.4 11.5-14.5 [facility] HospitalKmcrbimTDZKTQBXUK9846-17-64 10:50:00 Test Item Value Reference Range Interpretation Comments MPV (test code = MPV) 8.2 7.4-10.4 [facility]MdocvtvPPNBPQDTZU1585-42-81 10:50:00 Test Item Value Reference Range Interpretation Comments RBC (test code = RBC) 2.96 4.70-6.10 [facility]landsYtyewsaINSDMRJRUZ5338-86-62 10:50:00 Test Item Value Reference Range Interpretation Comments Hgb (test code = Hgb) 7.8 14.0-18.0 [facility] HospitalQbtrzpoGBIFNQVKAP0115-49-92 10:50:00 Test Item Value Reference Range Interpretation Comments WBC (test code = WBC) 7.0 3.7-10.4 [facility]PRSPSFRDXE1634-65-43 10:50:00 Test Item Value Reference Range Interpretation Comments Vanco Tr (test code = Vanco Tr) 21.8 [facility]landsJoojczmMEUASBIPBD0180-92-93 10:50:00 Test Item Value Reference Range Interpretation Comments Vanco Tr TND (test code = Vanco Tr TND) unk [facility]2019-03-16 09:08:00 Test Item Value Reference Range Interpretation Comments Bili Total (test code = Bili Total) 0.6 0.2-1.3 [facility]2019-03-16 09:08:00 Test Item Value Reference Range Interpretation Comments Total Protein (test code = Total 6.5 6.4-8.4 Protein) [facility]2019-03-16 09:08:00 Test Item Value Reference Range Interpretation Comments Alk Phos (test code = Alk Phos) 71 39-136 [facility]2019-03-16 09:08:00 Test Item Value Reference Range Interpretation Comments ALT (test code = ALT) 12 See_Comment [Auto mated message] The system which ge nerated this result transmit garrett reference range : <=65. The reference range was not used to interpr et this result as cassie l/abnormal. [facility]2019-03-16 09:08:00 Test Item Value Reference Range Interpretation Comments AST (test code = AST) 12 See_Comment [Auto mated message] The system which ge nerated this result transmit garrett reference range : <=37. The reference range was not used to interpr et this result as cassie l/abnormal. [facility]2019-03-16 09:08:00 Test Item Value Reference Range Interpretation Comments Albumin Lvl (test code = Albumin Lvl) 2.5 3.5-5.0 [facility]2019-03-16 09:08:00 Test Item Value Reference Range Interpretation Comments A/G Ratio (test code = A/G Ratio) 0.6 1 0.7-1.6 [facility]2019-03-16 09:08:00 Test Item Value Reference Range Interpretation Comments Globulin (test code = Globulin) 4.0 2.7-4.2 [facility]2019-03-16 09:08:00 Test Item Value Reference Range Interpretation Comments B/C Ratio (test code = B/C Ratio) 19 1 6-25 [facility]2019-03-16 09:08:00 Test Item Value Reference Range Interpretation Comments Bili Total (test code = Bili Total) 0.6 0.2-1.3 [facility]2019-03-16 09:08:00 Test Item Value Reference Range Interpretation Comments Total Protein (test code = Total 6.5 6.4-8.4 Protein) [place] 969579-03-16 09:08:00 Test Item Value Reference Range Interpretation Comments Alk Phos (test code = Alk Phos) 71 39-136 [facility]2019-03-16 09:08:00 Test Item Value Reference Range Interpretation Comments ALT (test code = ALT) 12 See_Comment [Auto mated message] The system which ge nerated this result transmit garrett reference range : <=65. The reference range was not used to interpr et this result as cassie l/abnormal. [facility]2019-03-16 09:08:00 Test Item Value Reference Range Interpretation Comments AST (test code = AST) 12 See_Comment [Auto mated message] The system which ge nerated this result transmit garrett reference range : <=37. The reference range was not used to interpr et this result as cassie l/abnormal. [place] 969579-03-16 09:08:00 Test Item Value Reference Range Interpretation Comments Albumin Lvl (test code = Albumin Lvl) 2.5 3.5-5.0 [facility]2019-03-16 09:08:00 Test Item Value Reference Range Interpretation Comments A/G Ratio (test code = A/G Ratio) 0.6 1 0.7-1.6 [facility]2019-03-16 09:08:00 Test Item Value Reference Range Interpretation Comments Globulin (test code = Globulin) 4.0 2.7-4.2 [facility]2019-03-16 09:08:00 Test Item Value Reference Range Interpretation Comments B/C Ratio (test code = B/C Ratio) 19 1 6-25 [facility]2019-03-16 09:08:00 Test Item Value Reference Range Interpretation Comments Bili Total (test code = Bili Total) 0.6 0.2-1.3 [place] 969579-03-16 09:08:00 Test Item Value Reference Range Interpretation Comments Total Protein (test code = Total 6.5 6.4-8.4 Protein) [place] 969579-03-16 09:08:00 Test Item Value Reference Range Interpretation Comments Alk Phos (test code = Alk Phos) 71 39-136 [facility]2019-03-16 09:08:00 Test Item Value Reference Range Interpretation Comments ALT (test code = ALT) 12 See_Comment [Auto mated message] The system which ge nerated this result transmit garrett reference range : <=65. The reference range was not used to interpr et this result as cassie l/abnormal. [facility]2019-03-16 09:08:00 Test Item Value Reference Range Interpretation Comments AST (test code = AST) 12 See_Comment [Auto mated message] The system which ge nerated this result transmit garrett reference range : <=37. The reference range was not used to interpr et this result as cassie l/abnormal. [place] 969579-03-16 09:08:00 Test Item Value Reference Range Interpretation Comments Albumin Lvl (test code = Albumin Lvl) 2.5 3.5-5.0 [place] 969579-03-16 09:08:00 Test Item Value Reference Range Interpretation Comments A/G Ratio (test code = A/G Ratio) 0.6 1 0.7-1.6 [place] 969579-03-16 09:08:00 Test Item Value Reference Range Interpretation Comments Globulin (test code = Globulin) 4.0 2.7-4.2 [place] 969579-03-16 09:08:00 Test Item Value Reference Range Interpretation Comments B/C Ratio (test code = B/C Ratio) 19 1 6-25 [place] 098479-03-15 20:56:00 Test Item Value Reference Range Interpretation Comments INR (test code = INR) 0.89 1 0.85-1.17 [facility] HospitalKgzgcbaOIDPSVYUGV6216-76-89 20:56:00 Test Item Value Reference Range Interpretation Comments PT (test code = PT) 11.9 s 12.0-14.7 [place] [address]-03-15 20:56:00 Test Item Value Reference Range Interpretation Comments INR (test code = INR) 0.89 1 0.85-1.17 [place] 098479-03-15 20:56:00 Test Item Value Reference Range Interpretation Comments PT (test code = PT) 11.9 s 12.0-14.7 [place] 098479-03-15 20:56:00 Test Item Value Reference Range Interpretation Comments INR (test code = INR) 0.89 1 0.85-1.17 [facility]landsWcvwatxTAGGGEIKFW3041-00-20 20:56:00 Test Item Value Reference Range Interpretation Comments PT (test code = PT) 11.9 s 12.0-14.7 [facility] [id number] 15:16:00 Test Item Value Reference Range Interpretation Comments RBC product (test code Product available = RBC product) 1(05/17/18 10:16 AM) [facility] [id number] 15:16:00 Test Item Value Reference Range Interpretation Comments RBC product (test code Product available = RBC product) 1(05/17/18 10:16 AM) [facility] [id number] 15:16:00 Test Item Value Reference Range Interpretation Comments RBC product (test code Product available = RBC product) 1(05/17/18 10:16 AM) [facility] [employer] [id number] 13:26:00 Test Item Value Reference Range Interpretation Comments Antibody Scrn (test Negative (05/17/18 8:26 code = Antibody Scrn) AM) [facility] [id number] 13:26:00 Test Item Value Reference Range Interpretation Comments ABO/Rh (test code = ABO/Rh) A POS [facility] [employer] BANK [id number] 13:26:00 Test Item Value Reference Range Interpretation Comments Antibody Scrn (test Negative (05/17/18 8:26 code = Antibody Scrn) AM) [facility] [id number] 13:26:00 Test Item Value Reference Range Interpretation Comments ABO/Rh (test code = ABO/Rh) A POS [facility] [employer] BANK [id number] 13:26:00 Test Item Value Reference Range Interpretation Comments Antibody Scrn (test Negative (05/17/18 8:26 code = Antibody Scrn) AM) [facility] BANK [id number] 13:26:00 Test Item Value Reference Range Interpretation Comments ABO/Rh (test code = ABO/Rh) A POS [facility] [employer] [id number] 09:48:00 Test Item Value Reference Range Interpretation Comments Phosphorus (test code = Phosphorus) 3.2 2.5-4.[address] [id number] 09:48:00 Test Item Value Reference Range Interpretation Comments Bili Total (test code = Bili Total) 0.7 0.2-1.3 [place] 969579-03-15 09:48:00 Test Item Value Reference Range Interpretation Comments Total Protein (test code = Total 5.9 6.4-8.4 Protein) [facility]2019-03-15 09:48:00 Test Item Value Reference Range Interpretation Comments Albumin Lvl (test code = Albumin Lvl) 2.5 3.5-5.0 [place] [address]-03-15 09:48:00 Test Item Value Reference Range Interpretation Comments Alk Phos (test code = Alk Phos) 80 39-136 [facility]2019-03-15 09:48:00 Test Item Value Reference Range Interpretation Comments ALT (test code = ALT) 12 See_Comment [Auto mated message] The system which ge nerated this result transmit garrett reference range : <=65. The reference range was not used to interpr et this result as cassie l/abnormal. [facility]2019-03-15 09:48:00 Test Item Value Reference Range Interpretation Comments AST (test code = AST) 8 See_Comment [Auto mated message] The system which ge nerated this result transmit garrett reference range : <=37. The reference range was not used to interpr et this result as cassie l/abnormal. [place] 969579-03-15 09:48:00 Test Item Value Reference Range Interpretation Comments A/G Ratio (test code = A/G Ratio) 0.7 1 0.7-1.6 [place] 969579-03-15 09:48:00 Test Item Value Reference Range Interpretation Comments Globulin (test code = Globulin) 3.4 2.7-4.2 [facility]2019-03-15 09:48:00 Test Item Value Reference Range Interpretation Comments B/C Ratio (test code = B/C Ratio) 14 1 6-25 [place] 969579-03-15 09:48:00 Test Item Value Reference Range Interpretation Comments Magnesium Lvl (test code = Magnesium 1.8 1.8-2.4 Lvl) [facility] HospitalFzjbxwoSNWKVJVCUL8804-78-34 09:48:00 Test Item Value Reference Range Interpretation Comments INR (test code = INR) 1.15 1 0.85-1.17 [place] 098479-03-15 09:48:00 Test Item Value Reference Range Interpretation Comments PT (test code = PT) 14.5 s 12.0-14.7 [place] [address]-03-15 09:48:00 Test Item Value Reference Range Interpretation Comments PTT (test code = PTT) 43.8 s 22.9-35.8 [place] [address]-03-15 09:48:00 Test Item Value Reference Range Interpretation Comments Phosphorus (test code = Phosphorus) 3.2 2.5-4.5 [place] [address]-03-15 09:48:00 Test Item Value Reference Range Interpretation Comments Bili Total (test code = Bili Total) 0.7 0.2-1.3 [place] [address]-03-15 09:48:00 Test Item Value Reference Range Interpretation Comments Total Protein (test code = Total 5.9 6.4-8.4 Protein) [place] 969579-03-15 09:48:00 Test Item Value Reference Range Interpretation Comments Albumin Lvl (test code = Albumin Lvl) 2.5 3.5-5.0 [place] 969579-03-15 09:48:00 Test Item Value Reference Range Interpretation Comments Alk Phos (test code = Alk Phos) 80 39-136 [facility]2019-03-15 09:48:00 Test Item Value Reference Range Interpretation Comments ALT (test code = ALT) 12 See_Comment [Auto mated message] The system which ge nerated this result transmit garrett reference range : <=65. The reference range was not used to interpr et this result as cassie l/abnormal. [facility]2019-03-15 09:48:00 Test Item Value Reference Range Interpretation Comments AST (test code = AST) 8 See_Comment [Auto mated message] The system which ge nerated this result transmit garrett reference range : <=37. The reference range was not used to interpr et this result as cassie l/abnormal. [place] 969579-03-15 09:48:00 Test Item Value Reference Range Interpretation Comments A/G Ratio (test code = A/G Ratio) 0.7 1 0.7-1.6 [facility]2019-03-15 09:48:00 Test Item Value Reference Range Interpretation Comments Globulin (test code = Globulin) 3.4 2.7-4.2 [facility]2019-03-15 09:48:00 Test Item Value Reference Range Interpretation Comments B/C Ratio (test code = B/C Ratio) 14 1 6-25 [place] 969579-03-15 09:48:00 Test Item Value Reference Range Interpretation Comments Magnesium Lvl (test code = Magnesium 1.8 1.8-2.4 Lvl) [facility] HospitalUdgcrvqPBCAGHPXXG3363-58-14 09:48:00 Test Item Value Reference Range Interpretation Comments INR (test code = INR) 1.15 1 0.85-1.17 [facility] HospitalMlpssbnLCLCGNMWJM6732-43-75 09:48:00 Test Item Value Reference Range Interpretation Comments PT (test code = PT) 14.5 s 12.0-14.7 [place] 098479-03-15 09:48:00 Test Item Value Reference Range Interpretation Comments PTT (test code = PTT) 43.8 s 22.9-35.8 [facility]2019-03-15 09:48:00 Test Item Value Reference Range Interpretation Comments Phosphorus (test code = Phosphorus) 3.2 2.5-4.5 [facility]2019-03-15 09:48:00 Test Item Value Reference Range Interpretation Comments Bili Total (test code = Bili Total) 0.7 0.2-1.3 [facility]2019-03-15 09:48:00 Test Item Value Reference Range Interpretation Comments Total Protein (test code = Total 5.9 6.4-8.4 Protein) [facility]2019-03-15 09:48:00 Test Item Value Reference Range Interpretation Comments Albumin Lvl (test code = Albumin Lvl) 2.5 3.5-5.0 [facility]2019-03-15 09:48:00 Test Item Value Reference Range Interpretation Comments Alk Phos (test code = Alk Phos) 80 39-136 [facility]2019-03-15 09:48:00 Test Item Value Reference Range Interpretation Comments ALT (test code = ALT) 12 See_Comment [Auto mated message] The system which ge nerated this result transmit garrett reference range : <=65. The reference range was not used to interpr et this result as cassie l/abnormal. [facility]2019-03-15 09:48:00 Test Item Value Reference Range Interpretation Comments AST (test code = AST) 8 See_Comment [Auto mated message] The system which ge nerated this result transmit garrett reference range : <=37. The reference range was not used to interpr et this result as cassie l/abnormal. [facility]2019-03-15 09:48:00 Test Item Value Reference Range Interpretation Comments A/G Ratio (test code = A/G Ratio) 0.7 1 0.7-1.6 [place] 969579-03-15 09:48:00 Test Item Value Reference Range Interpretation Comments Globulin (test code = Globulin) 3.4 2.7-4.2 [facility]2019-03-15 09:48:00 Test Item Value Reference Range Interpretation Comments B/C Ratio (test code = B/C Ratio) 14 1 6-25 [place] 969579-03-15 09:48:00 Test Item Value Reference Range Interpretation Comments Magnesium Lvl (test code = Magnesium 1.8 1.8-2.4 Lvl) [facility] HospitalQcbatkqWNOYFOOLSG8741-17-27 09:48:00 Test Item Value Reference Range Interpretation Comments INR (test code = INR) 1.15 1 0.85-1.17 [facility] HospitalJltncoiFZUZLQUTPP1621-37-37 09:48:00 Test Item Value Reference Range Interpretation Comments PT (test code = PT) 14.5 s 12.0-14.7 [place] 098479-03-15 09:48:00 Test Item Value Reference Range Interpretation Comments PTT (test code = PTT) 43.8 s 22.9-35.8 [facility]2019-03-14 10:21:00 Test Item Value Reference Range Interpretation Comments AST (test code = AST) 6 See_Comment [Auto mated message] The system which ge nerated this result transmit garrett reference range : <=37. The reference range was not used to interpr et this result as cassie l/abnormal. [facility]2019-03-14 10:21:00 Test Item Value Reference Range Interpretation Comments A/G Ratio (test code = A/G Ratio) 0.7 1 0.7-1.6 [facility]2019-03-14 10:21:00 Test Item Value Reference Range Interpretation Comments Total Protein (test code = Total 5.8 6.4-8.4 Protein) [facility]2019-03-14 10:21:00 Test Item Value Reference Range Interpretation Comments Globulin (test code = Globulin) 3.4 2.7-4.2 [facility]2019-03-14 10:21:00 Test Item Value Reference Range Interpretation Comments B/C Ratio (test code = B/C Ratio) 15 1 6-25 [facility]2019-03-14 10:21:00 Test Item Value Reference Range Interpretation Comments ALT (test code = ALT) 11 See_Comment [Auto mated message] The system which ge nerated this result transmit garrett reference range : <=65. The reference range was not used to interpr et this result as cassie l/abnormal. [facility]2019-03-14 10:21:00 Test Item Value Reference Range Interpretation Comments Bili Total (test code = Bili Total) 1.6 0.2-1.3 [facility]2019-03-14 10:21:00 Test Item Value Reference Range Interpretation Comments Albumin Lvl (test code = Albumin Lvl) 2.4 3.5-5.0 [facility]2019-03-14 10:21:00 Test Item Value Reference Range Interpretation Comments Alk Phos (test code = Alk Phos) 75 39-136 [facility]2019-03-14 10:21:00 Test Item Value Reference Range Interpretation Comments Magnesium Lvl (test code = Magnesium 1.8 1.8-2.4 Lvl) [facility]2019-03-14 10:21:00 Test Item Value Reference Range Interpretation Comments Phosphorus (test code = Phosphorus) 3.0 2.5-4.5 [id number] 10:21:00 Test Item Value Reference Range Interpretation Comments Vanco Lvl (test code = Vanco Lvl) 16.6 [facility]2019-03-14 10:21:00 Test Item Value Reference Range Interpretation Comments AST (test code = AST) 6 See_Comment [Auto mated message] The system which ge nerated this result transmit garrett reference range : <=37. The reference range was not used to interpr et this result as cassie l/abnormal. [facility]2019-03-14 10:21:00 Test Item Value Reference Range Interpretation Comments A/G Ratio (test code = A/G Ratio) 0.7 1 0.7-1.6 [facility]2019-03-14 10:21:00 Test Item Value Reference Range Interpretation Comments Total Protein (test code = Total 5.8 6.4-8.4 Protein) [facility]2019-03-14 10:21:00 Test Item Value Reference Range Interpretation Comments Globulin (test code = Globulin) 3.4 2.7-4.2 [facility]2019-03-14 10:21:00 Test Item Value Reference Range Interpretation Comments B/C Ratio (test code = B/C Ratio) 15 1 6-25 [facility]2019-03-14 10:21:00 Test Item Value Reference Range Interpretation Comments ALT (test code = ALT) 11 See_Comment [Auto mated message] The system which ge nerated this result transmit garrett reference range : <=65. The reference range was not used to interpr et this result as cassie l/abnormal. [facility]2019-03-14 10:21:00 Test Item Value Reference Range Interpretation Comments Bili Total (test code = Bili Total) 1.6 0.2-1.3 [facility]2019-03-14 10:21:00 Test Item Value Reference Range Interpretation Comments Albumin Lvl (test code = Albumin Lvl) 2.4 3.5-5.0 [facility]2019-03-14 10:21:00 Test Item Value Reference Range Interpretation Comments Alk Phos (test code = Alk Phos) 75 39-136 [facility]2019-03-14 10:21:00 Test Item Value Reference Range Interpretation Comments Magnesium Lvl (test code = Magnesium 1.8 1.8-2.4 Lvl) [facility]2019-03-14 10:21:00 Test Item Value Reference Range Interpretation Comments Phosphorus (test code = Phosphorus) 3.0 2.5-4.5 [id number] 10:21:00 Test Item Value Reference Range Interpretation Comments Vanco Lvl (test code = Vanco Lvl) 16.6 [facility] Computer System ([place] [id number] 10:21:00 Test Item Value Reference Range Interpretation Comments AST (test code = AST) 6 See_Comment [Auto mated message] The system which ge nerated this result transmit garrett reference range : <=37. The reference range was not used to interpr et this result as cassie l/abnormal. [facility] ([place] [id number] 10:21:00 Test Item Value Reference Range Interpretation Comments A/G Ratio (test code = A/G Ratio) 0.7 1 0.7-1.6 [facility]2019-03-14 10:21:00 Test Item Value Reference Range Interpretation Comments Total Protein (test code = Total 5.8 6.4-8.4 Protein) [facility]2019-03-14 10:21:00 Test Item Value Reference Range Interpretation Comments Globulin (test code = Globulin) 3.4 2.7-4.2 [facility] [id number] 10:21:00 Test Item Value Reference Range Interpretation Comments B/C Ratio (test code = B/C Ratio) 15 1 6-25 [facility] [id number] 10:21:00 Test Item Value Reference Range Interpretation Comments ALT (test code = ALT) 11 See_Comment [Auto mated message] The system which ge nerated this result transmit garrett reference range : <=65. The reference range was not used to interpr et this result as cassie l/abnormal. [facility] [id number] 10:21:00 Test Item Value Reference Range Interpretation Comments Bili Total (test code = Bili Total) 1.6 0.2-1.3 [facility] [id number] 10:21:00 Test Item Value Reference Range Interpretation Comments Albumin Lvl (test code = Albumin Lvl) 2.4 3.5-5.0 [facility] [id number] 10:21:00 Test Item Value Reference Range Interpretation Comments Alk Phos (test code = Alk Phos) 75 39-136 [facility] ([place] [id number] 10:21:00 Test Item Value Reference Range Interpretation Comments Magnesium Lvl (test code = Magnesium 1.8 1.8-2.4 Lvl) [facility]CHE[facility] [id number] 10:21:00 Test Item Value Reference Range Interpretation Comments Phosphorus (test code = Phosphorus) 3.0 2.5-4.5 [facility] Hospit[id number] 10:21:00 Test Item Value Reference Range Interpretation Comments Vanco Lvl (test code = Vanco Lvl) 16.6 [facility]annPARATHYROID [id number] 08:07:00 Test Item Value Reference Range Interpretation Comments Ca Norm WB (test code = Ca Norm WB) 1.15 1.05-1.25 [facility]annPARATHYROID [id number] 08:07:00 Test Item Value Reference Range Interpretation Comments Ca Ion WB (test code = Ca Ion WB) 1.15 1.05-1.25 [facility]annPARATHYROID [id number] 08:07:00 Test Item Value Reference Range Interpretation Comments Ca Norm WB (test code = Ca Norm WB) 1.15 1.05-1.25 [facility]annPARATHYROID [id number] 08:07:00 Test Item Value Reference Range Interpretation Comments Ca Ion WB (test code = Ca Ion WB) 1.15 1.05-1.25 [facility]annPARATHYROID [id number] 08:07:00 Test Item Value Reference Range Interpretation Comments Ca Norm WB (test code = Ca Norm WB) 1.15 1.05-1.25 [facility]annPARATHYROID [id number] 08:07:00 Test Item Value Reference Range Interpretation Comments Ca Ion WB (test code = Ca Ion WB) 1.15 1.05-1.25 [facility]annPARATHYROID [id number] 08:41:00 Test Item Value Reference Range Interpretation Comments Ca Norm WB (test code = Ca Norm WB) 1.11 1.05-1.25 [facility]annPARATHYROID [id number] 08:41:00 Test Item Value Reference Range Interpretation Comments Ca Ion WB (test code = Ca Ion WB) 1.09 1.05-1.25 [facility] [id number] 08:41:00 Test Item Value Reference Range Interpretation Comments Ca Norm WB (test code = Ca Norm WB) 1.11 1.05-1.25 [facility] [id number] 08:41:00 Test Item Value Reference Range Interpretation Comments Ca Ion WB (test code = Ca Ion WB) 1.09 1.05-1.25 [facility] [id number] 08:41:00 Test Item Value Reference Range Interpretation Comments Ca Norm WB (test code = Ca Norm WB) 1.11 1.05-1.25 [facility] [id number] 08:41:00 Test Item Value Reference Range Interpretation Comments Ca Ion WB (test code = Ca Ion WB) 1.09 1.05-1.25 [facility] [id number] 04:19:00 Test Item Value Reference Range Interpretation Comments RBC product (test code Product available = RBC product) 2(05/13/18 11:19 PM) [facility] [id number] 04:19:00 Test Item Value Reference Range Interpretation Comments RBC product (test code Product available = RBC product) 2(05/13/18 11:19 PM) [facility] [id number] 04:19:00 Test Item Value Reference Range Interpretation Comments RBC product (test code Product available = RBC product) 2(05/13/18 11:19 PM) [facility] [id number] 02:42:00 Test Item Value Reference Range Interpretation Comments RBC product (test code Product available = RBC product) 3(05/13/18 9:42 PM) [facility] [id number] 02:42:00 Test Item Value Reference Range Interpretation Comments RBC product (test code Product available = RBC product) 3(05/13/18 9:42 PM) [facility] [id number] 02:42:00 Test Item Value Reference Range Interpretation Comments RBC product (test code Product available = RBC product) 3(05/13/18 9:42 PM) [facility] [id number] 01:42:00 Test Item Value Reference Range Interpretation Comments Lactic Acid Lvl (test code = Lactic 0.9 0.5-2.2 Acid Lvl) [facility] [id number] 01:42:00 Test Item Value Reference Range Interpretation Comments PT (test code = PT) 13.9 s 12.0-14.7 [facility] H[id number] 01:42:00 Test Item Value Reference Range Interpretation Comments INR (test code = INR) 1.09 1 0.85-1.17 [facility] H[id number] 01:42:00 Test Item Value Reference Range Interpretation Comments PTT (test code = PTT) 29.8 s 22.9-35.8 [facility]2019-03-12 01:42:00 Test Item Value Reference Range Interpretation Comments Lactic Acid Lvl (test code = Lactic 0.9 0.5-2.2 Acid Lvl) [facility] [id number] 01:42:00 Test Item Value Reference Range Interpretation Comments PT (test code = PT) 13.9 s 12.0-14.7 [facility] H[id number] 01:42:00 Test Item Value Reference Range Interpretation Comments INR (test code = INR) 1.09 1 0.85-1.17 [facility] H[id number] 01:42:00 Test Item Value Reference Range Interpretation Comments PTT (test code = PTT) 29.8 s 22.9-35.8 [facility]2019-03-12 01:42:00 Test Item Value Reference Range Interpretation Comments Lactic Acid Lvl (test code = Lactic 0.9 0.5-2.2 Acid Lvl) [facility] Hospit[id number] 01:42:00 Test Item Value Reference Range Interpretation Comments PT (test code = PT) 13.9 s 12.0-14.7 [facility] H[id number] 01:42:00 Test Item Value Reference Range Interpretation Comments INR (test code = INR) 1.09 1 0.85-1.17 [facility] Hos[id number] 01:42:00 Test Item Value Reference Range Interpretation Comments PTT (test code = PTT) 29.8 s 22.9-35.8 [facility]: [id number] 13:11:00 Test Item Value Reference Range Interpretation Comments Culture: Anaerobic No Anaerobes Isolated (test code = Culture: Anaerobic) [facility] Stain [id number] 13:11:00 Test Item Value Reference Range Interpretation Comments Gram Stain Report No Wbc'S Or Organisms (test code = Gram Seen Stain Report) [facility] Fl[facility]/[id number] 13:11:00 Test Item Value Reference Range Interpretation Comments Culture: Aspirate/Body Fluid/Tissue No Growth (test code = Culture: Aspirate/Body Fluid/Tissue) [facility] [id number] 13:11:00 Test Item Value Reference Range Interpretation Comments Culture: Anaerobic No Anaerobes Isolated (test code = Culture: Anaerobic) [facility] Stain [id number] 13:11:00 Test Item Value Reference Range Interpretation Comments Gram Stain Report No Wbc'S Or Organisms (test code = Gram Seen Stain Report) [facility]irate/Body Fluid/[id number] 13:11:00 Test Item Value Reference Range Interpretation Comments Culture: Aspirate/Body Fluid/Tissue No Growth (test code = Culture: Aspirate/Body Fluid/Tissue) [facility]: [id number] 13:11:00 Test Item Value Reference Range Interpretation Comments Culture: Anaerobic No Anaerobes Isolated (test code = Culture: Anaerobic) [facility] Stain [id number] 13:11:00 Test Item Value Reference Range Interpretation Comments Gram Stain Report No Wbc'S Or Organisms (test code = Gram Seen Stain Report) [facility]irate/Body Fluid/Gewquu9929-12-27 13:11:00 Test Item Value Reference Range Interpretation Comments Culture: Aspirate/Body Fluid/Tissue No Growth (test code = Culture: Aspirate/Body Fluid/Tissue) [facility] Ho[id number] 10:03:00 Test Item Value Reference Range Interpretation Comments Sed Rate (test code = 33 See_Comment [Auto mated message] The Sed Rate) system which ge nerated this result transmit garrett reference range : <=15. The reference range was not used to interpr et this result as cassie l/abnormal. [facility] HospitalGqkcsgrZFUSHMTGGQ6387-95-15 10:03:00 Test Item Value Reference Range Interpretation Comments PTT (test code = PTT) 32.6 s 22.9-35.8 [id number] 10:03:00 Test Item Value Reference Range Interpretation Comments C-REACTIVE PROTEIN (test code = 12.4 C-REACTIVE PROTEIN) [facility] Hospit[id number] 10:03:00 Test Item Value Reference Range Interpretation Comments Sed Rate (test code = 33 See_Comment [Auto mated message] The Sed Rate) system which ge nerated this result transmit garrett reference range : <=15. The reference range was not used to interpr et this result as cassie l/abnormal. [facility] HospitalXcwmupwVHIKMMNXBJ7577-41-69 10:03:00 Test Item Value Reference Range Interpretation Comments PTT (test code = PTT) 32.6 s 22.9-35.8 [facility] CenterJwatysoEKCTGAJYAR7716-18-94 10:03:00 Test Item Value Reference Range Interpretation Comments C-REACTIVE PROTEIN (test code = 12.4 C-REACTIVE PROTEIN) [facility] HospitalYpdgrvqKGRHFKFISI1892-16-60 10:03:00 Test Item Value Reference Range Interpretation Comments Sed Rate (test code = 33 See_Comment [Auto mated message] The Sed Rate) system which ge nerated this result transmit garrett reference range : <=15. The reference range was not used to interpr et this result as cassie l/abnormal. [facility] HospitalFoodfztCGDTIRJIVG2623-33-14 10:03:00 Test Item Value Reference Range Interpretation Comments PTT (test code = PTT) 32.6 s 22.9-35.8 [facility] CenterDclgjkyWNDWWGTZTM2005-73-19 10:03:00 Test Item Value Reference Range Interpretation Comments C-REACTIVE PROTEIN (test code = 12.4 C-REACTIVE PROTEIN) [facility] [id number] 01:00:00 Test Item Value Reference Range Interpretation Comments Antibody Scrn (test Negative (05/12/18 8:00 code = Antibody Scrn) PM) [facility] [id number] 01:00:00 Test Item Value Reference Range Interpretation Comments ABO/Rh (test code = ABO/Rh) A POS [facility] [employer] [id number] 01:00:00 Test Item Value Reference Range Interpretation Comments Antibody Scrn (test Negative (05/12/18 8:00 code = Antibody Scrn) PM) [facility] [employer] [id number] 01:00:00 Test Item Value Reference Range Interpretation Comments ABO/Rh (test code = ABO/Rh) A POS [facility] [id number] 01:00:00 Test Item Value Reference Range Interpretation Comments Antibody Scrn (test Negative (05/12/18 8:00 code = Antibody Scrn) PM) [facility] [id number] 01:00:00 Test Item Value Reference Range Interpretation Comments ABO/Rh (test code = ABO/Rh) A POS [facility] [employer] [id number] 09:58:00 Test Item Value Reference Range Interpretation Comments Bili Direct (test code no gt See_Comment [Aut omated message] The = Bili Direct) system which generated this result tra nsmitted reference range : <=0.3. The reference r ondina was not used to int erpret this result as cassie l/abnormal. [facility] [employer] [id number] 09:58:00 Test Item Value Reference Range Interpretation Comments Bili Indirect Unable to See_Comment [Automated (test code = Bili Calculate message] T he system Indirect) which generated this result transmitted reference range : <=1.0. The reference range was not used to interpret this result as normal/abnormal . [facility] HospitalDlqeemlINAZJBKWPI1896-10-52 09:58:00 Test Item Value Reference Range Interpretation Comments Sed Rate (test code = 30 See_Comment [Auto mated message] The Sed Rate) system which ge nerated this result transmit garrett reference range : <=15. The reference range was not used to interpr et this result as cassie l/abnormal. [facility] GugowkgTEFCNQPHJZ5768-45-07 09:58:00 Test Item Value Reference Range Interpretation Comments Microcyte (test code = 1+ *ABN*(05/12/18 Microcyte) 4:58 AM) [facility] HospitalXjthiycPPGOIDJCSK0467-35-04 09:58:00 Test Item Value Reference Range Interpretation Comments C-REACTIVE PROTEIN (test code = 9.8 C-REACTIVE PROTEIN) [facility] [employer] [id number] 09:58:00 Test Item Value Reference Range Interpretation Comments Bili Direct (test code no gt See_Comment [Aut omated message] The = Bili Direct) system which generated this result tra nsmitted reference range : <=0.3. The reference r ondina was not used to int erpret this result as cassie l/abnormal. [facility]2019-03-10 09:58:00 Test Item Value Reference Range Interpretation Comments Bili Indirect Unable to See_Comment [Automated (test code = Bili Calculate message] T he system Indirect) which generated this result transmitted reference range : <=1.0. The reference range was not used to interpret this result as normal/abnormal . [facility] Hospit[id number] 09:58:00 Test Item Value Reference Range Interpretation Comments Sed Rate (test code = 30 See_Comment [Auto mated message] The Sed Rate) system which ge nerated this result transmit garrett reference range : <=15. The reference range was not used to interpr et this result as cassie l/abnormal. [facility] Ho[id number] 09:58:00 Test Item Value Reference Range Interpretation Comments Microcyte (test code = 1+ *ABN*(05/12/18 Microcyte) 4:58 AM) [id number] 09:58:00 Test Item Value Reference Range Interpretation Comments C-REACTIVE PROTEIN (test code = 9.8 C-REACTIVE PROTEIN) [facility]2019-03-10 09:58:00 Test Item Value Reference Range Interpretation Comments Bili Direct (test code no gt See_Comment [Aut omated message] The = Bili Direct) system which generated this result tra nsmitted reference range : <=0.3. The reference r ondina was not used to int erpret this result as cassie l/abnormal. [facility]2019-03-10 09:58:00 Test Item Value Reference Range Interpretation Comments Bili Indirect Unable to See_Comment [Automated (test code = Bili Calculate message] T he system Indirect) which generated this result transmitted reference range : <=1.0. The reference range was not used to interpret this result as normal/abnormal . [facility] HospitalWrsslprDFETVZNNLQ0599-62-30 09:58:00 Test Item Value Reference Range Interpretation Comments Sed Rate (test code = 30 See_Comment [Auto mated message] The Sed Rate) system which ge nerated this result transmit garrett reference range : <=15. The reference range was not used to interpr et this result as cassie l/abnormal. [facility] HospitalLgnnkobNTLGODGKVF0931-04-09 09:58:00 Test Item Value Reference Range Interpretation Comments Microcyte (test code = 1+ *ABN*(05/12/18 Microcyte) 4:58 AM) [facility] CenterPatbxqpJRTPZJYSDK2050-55-10 09:58:00 Test Item Value Reference Range Interpretation Comments C-REACTIVE PROTEIN (test code = 9.8 C-REACTIVE PROTEIN) [facility]2019-03-09 10:50:00 Test Item Value Reference Range Interpretation Comments Bili Indirect Unable to See_Comment [Automated (test code = Bili Calculate message] T he system Indirect) which generated this result transmitted reference range : <=1.0. The reference range was not used to interpret this result as normal/abnormal . [facility]2019-03-09 10:50:00 Test Item Value Reference Range Interpretation Comments Bili Direct (test code no gt See_Comment [Aut omated message] The = Bili Direct) system which generated this result tra nsmitted reference range : <=0.3. The reference r onidna was not used to int erpret this result as cassie l/abnormal. [facility] HospitalZdiumocTGXCSHXASA9591-40-31 10:50:00 Test Item Value Reference Range Interpretation Comments Sed Rate (test code = 34 See_Comment [Auto mated message] The Sed Rate) system which ge nerated this result transmit garrett reference range : <=15. The reference range was not used to interpr et this result as cassie l/abnormal. [facility] HospitalKehplnnUCVVXOTNUB0182-23-48 10:50:00 Test Item Value Reference Range Interpretation Comments Microcyte (test code = 1+ *ABN*(05/11/18 4:50 Microcyte) AM) [facility] CenterRnuvlhxLIGSRQICVN1808-65-33 10:50:00 Test Item Value Reference Range Interpretation Comments C-REACTIVE PROTEIN (test code = 8.7 C-REACTIVE PROTEIN) [facility]2019-03-09 10:50:00 Test Item Value Reference Range Interpretation Comments Bili Indirect Unable to See_Comment [Automated (test code = Bili Calculate message] T he system Indirect) which generated this result transmitted reference range : <=1.0. The reference range was not used to interpret this result as normal/abnormal . [facility]2019-03-09 10:50:00 Test Item Value Reference Range Interpretation Comments Bili Direct (test code no gt See_Comment [Aut omated message] The = Bili Direct) system which generated this result tra nsmitted reference range : <=0.3. The reference r ondina was not used to int erpret this result as cassie l/abnormal. [facility] HospitalPtmhimcLBELVSFWJC3503-57-72 10:50:00 Test Item Value Reference Range Interpretation Comments Sed Rate (test code = 34 See_Comment [Auto mated message] The Sed Rate) system which ge nerated this result transmit garrett reference range : <=15. The reference range was not used to interpr et this result as cassie l/abnormal. [facility] HospitalZbajslqCAONQZRUKK4707-27-56 10:50:00 Test Item Value Reference Range Interpretation Comments Microcyte (test code = 1+ *ABN*(05/11/18 4:50 Microcyte) AM) [facility]landsAmhpzowKFSSXOSRQI8282-19-09 10:50:00 Test Item Value Reference Range Interpretation Comments C-REACTIVE PROTEIN (test code = 8.7 C-REACTIVE PROTEIN) [facility]2019-03-09 10:50:00 Test Item Value Reference Range Interpretation Comments Bili Indirect Unable to See_Comment [Automated (test code = Bili Calculate message] T he system Indirect) which generated this result transmitted reference range : <=1.0. The reference range was not used to interpret this result as normal/abnormal . [facility]2019-03-09 10:50:00 Test Item Value Reference Range Interpretation Comments Bili Direct (test code no gt See_Comment [Aut omated message] The = Bili Direct) system which generated this result tra nsmitted reference range : <=0.3. The reference r ondina was not used to int erpret this result as cassie l/abnormal. [facility] HospitalMgdvfmbISWLDSXZCQ7078-90-97 10:50:00 Test Item Value Reference Range Interpretation Comments Sed Rate (test code = 34 See_Comment [Auto mated message] The Sed Rate) system which ge nerated this result transmit garrett reference range : <=15. The reference range was not used to interpr et this result as cassie l/abnormal. [facility] HospitalOzcefnhCJWJEVICLT5970-27-77 10:50:00 Test Item Value Reference Range Interpretation Comments Microcyte (test code = 1+ *ABN*(05/11/18 4:50 Microcyte) AM) [facility] HospitalMcsexckKLOOVUKZEO7423-45-28 10:50:00 Test Item Value Reference Range Interpretation Comments C-REACTIVE PROTEIN (test code = 8.7 C-REACTIVE PROTEIN) [facility]annMEROPENEM:SUSC:PT:ISOLATE:ORDQN:[id number] 23:28:00 Test Item Value Reference Range Interpretation Comments Gram Stain Report Rare WBC's No Organisms (test code = Gram Seen Stain Report) [facility]annMEROPENEM:SUSC:PT:ISOLATE:ORDQN:[id number] 23:28:00 Test Item Value Reference Range Interpretation Comments Culture: Growth In Subculture Broth Wound/Abscess Only : Staphylococcus w/Gram Stain (test Species, Not S. aureus code = Culture: Wound/Abscess w/Gram Stain) [facility]annMEROPENEM:SUSC:PT:ISOLATE:ORDQN:[id number] 23:28:00 Test Item Value Reference Range Interpretation Comments Staphylococcus Species, Staphylococcus Not S. aureus (test Species, Not S. aureus code = Staphylococcus Species, Not S. aureus) [facility]annMEROPENEM:SUSC:PT:ISOLATE:ORDQN:[id number] 23:28:00 Test Item Value Reference Range Interpretation Comments Gram Stain Report Rare WBC's No Organisms (test code = Gram Seen Stain Report) [facility]annMEROPENEM:SUSC:PT:ISOLATE:ORDQN:[id number] 23:28:00 Test Item Value Reference Range Interpretation Comments Culture: Growth In Subculture Broth Wound/Abscess Only : Staphylococcus w/Gram Stain (test Species, Not S. aureus code = Culture: Wound/Abscess w/Gram Stain) [facility]annMEROPENEM:SUSC:PT:ISOLATE:ORDQN:[id number] 23:28:00 Test Item Value Reference Range Interpretation Comments Staphylococcus Species, Staphylococcus Not S. aureus (test Species, Not S. aureus code = Staphylococcus Species, Not S. aureus) [facility]:PT:ISOLATE:ORDQN:[id number] 23:28:00 Test Item Value Reference Range Interpretation Comments Gram Stain Report Rare WBC's No Organisms (test code = Gram Seen Stain Report) [facility]PT:ISOLATE:ORDQN:[id number] 23:28:00 Test Item Value Reference Range Interpretation Comments Culture: Growth In Subculture Broth Wound/Abscess Only : Staphylococcus w/Gram Stain (test Species, Not S. aureus code = Culture: Wound/Abscess w/Gram Stain) [facility]PT:ISOLATE:ORDQN:[id number] 23:28:00 Test Item Value Reference Range Interpretation Comments Staphylococcus Species, Staphylococcus Not S. aureus (test Species, Not S. aureus code = Staphylococcus Species, Not S. aureus) [facility]2019-03-08 17:06:00 Test Item Value Reference Range Interpretation Comments Procalcitonin Lvl (test no gt See_Comment [Au tomated message] code = Procalcitonin Lvl) Th e system which generated this result transmitted ref erence range: <=0.10. The reference range was not used to interpr et this result as normal/abnormal . [facility]2019-03-08 17:06:00 Test Item Value Reference Range Interpretation Comments Procalcitonin Lvl (test no gt See_Comment [Au tomated message] code = Procalcitonin Lvl) Th e system which generated this result transmitted ref erence range: <=0.10. The reference range was not used to interpr et this result as normal/abnormal . [facility]2019-03-08 17:06:00 Test Item Value Reference Range Interpretation Comments Procalcitonin Lvl (test no gt See_Comment [Au tomated message] code = Procalcitonin Lvl) Th e system which generated this result transmitted ref erence range: <=0.10. The reference range was not used to interpr et this result as normal/abnormal . [facility]ZkncssbJHMZIVEYMW0802-[facility]-20 09:26:00 Test Item Value Reference Range Interpretation Comments Microcyte (test code = 1+ *ABN*(05/10/18 3:26 Microcyte) AM) [facility] HospitalAhuekuvBMLJBSYMGT6043-17-14 09:26:00 Test Item Value Reference Range Interpretation Comments Microcyte (test code = 1+ *ABN*(05/10/18 3:26 Microcyte) AM) [facility] HospitalOdqamllBDZCLYXRWU5176-44-03 09:26:00 Test Item Value Reference Range Interpretation Comments Microcyte (test code = 1+ *ABN*(05/10/18 3:26 Microcyte) AM) [facility] HospitalPtgzggeSBHSXPJYFV5816-19-71 20:34:00 Test Item Value Reference Range Interpretation Comments Plt Morph (test code = Normal (05/09/18 2:34 PM) Plt Morph) [facility] HospitalNfypzpoZJBVTWKWHI1652-21-24 20:34:00 Test Item Value Reference Range Interpretation Comments Plt Morph (test code = Normal (05/09/18 2:34 PM) Plt Morph) [facility] HospitalXchidnoJQBSYMFWDS4853-83-22 20:34:00 Test Item Value Reference Range Interpretation Comments Plt Morph (test code = Normal (05/09/18 2:34 PM) Plt Morph) [facility]ARD[facility] [id number] 10:47:00 Test Item Value Reference Range Interpretation Comments BNP (test code = BNP) 288 [facility] [id number] 10:47:00 Test Item Value Reference Range Interpretation Comments Phosphorus (test code = Phosphorus) 3.3 2.5-4.5 [facility]2018-12-28 10:47:00 Test Item Value Reference Range Interpretation Comments Magnesium Lvl (test code = Magnesium 2.2 1.8-2.4 Lvl) [facility]2018-12-28 10:47:00 Test Item Value Reference Range Interpretation Comments Albumin Lvl (test code = Albumin Lvl) 2.3 3.5-5.0 [facility] [id number] 10:47:00 Test Item Value Reference Range Interpretation Comments Creatinine Lvl (test code = Creatinine 0.81 0.50-1.40 Lvl) [facility] [id number] 10:47:00 Test Item Value Reference Range Interpretation Comments ALT (test code = ALT) 14 See_Comment [Auto mated message] The system which ge nerated this result transmit garrett reference range : <=65. The reference range was not used to interpr et this result as cassie l/abnormal. [facility]2018-12-28 10:47:00 Test Item Value Reference Range Interpretation Comments AST (test code = AST) 9 See_Comment [Auto mated message] The system which ge nerated this result transmit garrett reference range : <=37. The reference range was not used to interpr et this result as cassie l/abnormal. [facility]2018-12-28 10:47:00 Test Item Value Reference Range Interpretation Comments eGFR (test code = eGFR) 97 [facility]2018-12-28 10:47:00 Test Item Value Reference Range Interpretation Comments Sodium Lvl (test code = Sodium Lvl) 143 135-145 [facility]2018-12-28 10:47:00 Test Item Value Reference Range Interpretation Comments Potassium Lvl (test code = Potassium 3.3 3.5-5.1 Lvl) [facility]2018-12-28 10:47:00 Test Item Value Reference Range Interpretation Comments Chloride Lvl (test code = Chloride Lvl) 107 95-109 [facility]2018-12-28 10:47:00 Test Item Value Reference Range Interpretation Comments Total Protein (test code = Total 6.7 6.4-8.4 Protein) [facility]2018-12-28 10:47:00 Test Item Value Reference Range Interpretation Comments Bili Total (test code = Bili Total) 0.7 0.2-1.3 [facility]2018-12-28 10:47:00 Test Item Value Reference Range Interpretation Comments Calcium Lvl (test code = Calcium Lvl) 8.3 8.5-10.5 [facility]2018-12-28 10:47:00 Test Item Value Reference Range Interpretation Comments CO2 (test code = CO2) 29 24-32 [facility]2018-12-28 10:47:00 Test Item Value Reference Range Interpretation Comments BUN (test code = BUN) 14 7-22 [facility]2018-12-28 10:47:00 Test Item Value Reference Range Interpretation Comments Glucose Lvl (test code = Glucose Lvl) 128 70-99 [facility]2018-12-28 10:47:00 Test Item Value Reference Range Interpretation Comments Alk Phos (test code = Alk Phos) 100 39-136 [facility]2018-12-28 10:47:00 Test Item Value Reference Range Interpretation Comments B/C Ratio (test code = B/C Ratio) 17 1 6-25 [facility]2018-12-28 10:47:00 Test Item Value Reference Range Interpretation Comments Globulin (test code = Globulin) 4.4 2.7-4.2 [facility]2018-12-28 10:47:00 Test Item Value Reference Range Interpretation Comments A/G Ratio (test code = A/G Ratio) 0.5 1 0.7-1.6 [facility]2018-12-28 10:47:00 Test Item Value Reference Range Interpretation Comments AGAP (test code = AGAP) 10.3 10.0-20.0 [facility] H[id number] 10:47:00 Test Item Value Reference Range Interpretation Comments Microcyte (test code = 1+ *ABN*(03/01/18 Microcyte) 4:47 AM) [facility] HospitalKocwdbeNLBGRTWOAS0213-28-47 10:47:00 Test Item Value Reference Range Interpretation Comments Lymphocytes # (test code = Lymphocytes 1.4 1.0-5.5 #) [facility] HospitalNvjrpjhBNXVSLKKFP6351-46-43 10:47:00 Test Item Value Reference Range Interpretation Comments Monocytes # (test code 0.8 See_Comment [Aut omated message] The = Monocytes #) system which generated this result tra nsmitted reference range : <=0.8. The reference r ondina was not used to int erpret this result as normal/abnormal . [facility] HospitalAmrbfmrTQOWIMLCJD4228-83-29 10:47:00 Test Item Value Reference Range Interpretation Comments Segs (test code = Segs) 78.3 45.0-75.0 [facility] HospitalWjekmbtLKIUTXDXHV3436-65-56 10:47:00 Test Item Value Reference Range Interpretation Comments Basophils (test code = 0.4 See_Comment [Aut omated message] The Basophils) system which ge nerated this result tra nsmitted reference range : <=1.0. The reference r ondina was not used to int erpret this result as normal/abnormal . [facility] HospitalMuyhhunWBDDSUYJKG7833-24-57 10:47:00 Test Item Value Reference Range Interpretation Comments Neutrophils # (test code = Neutrophils 8.1 1.5-8.1 #) [facility] HospitalXxuwxrxTDTZIJWURQ9622-18-72 10:47:00 Test Item Value Reference Range Interpretation Comments Monocytes (test code = Monocytes) 7.9 2.0-12.0 [facility]OfvwmxzSKLBVUPALY4863-52-02 10:47:00 Test Item Value Reference Range Interpretation Comments Lymphocytes (test code = Lymphocytes) 13.4 20.0-40.0 [facility] HospitalBsasftjPWUSIBCHNM3508-69-21 10:47:00 Test Item Value Reference Range Interpretation Comments Hct (test code = Hct) 27.0 42.0-54.0 [facility] HospitalBzstcxoTVGSMNXUEA6968-59-67 10:47:00 Test Item Value Reference Range Interpretation Comments MCV (test code = MCV) 78.7 80.0-94.0 [facility] HospitalWtghjmtGKPUAANDLW7489-97-34 10:47:00 Test Item Value Reference Range Interpretation Comments MCHC (test code = MCHC) 32.7 32.0-36.0 [facility] HospitalBkjkepwKBLNFACKPM6993-91-53 10:47:00 Test Item Value Reference Range Interpretation Comments MCH (test code = MCH) 25.8 pg 27.0-31.0 [facility] HospitalWfkqrcqHTFSRMYZVE1069-62-73 10:47:00 Test Item Value Reference Range Interpretation Comments MPV (test code = MPV) 8.2 7.4-10.4 [facility] HospitalUjofueaJKOPHUXWAI7408-09-51 10:47:00 Test Item Value Reference Range Interpretation Comments Platelet (test code = Platelet) 475 133-450 [facility]landsVvvpkxqWJZVYOCZFF8116-39-42 10:47:00 Test Item Value Reference Range Interpretation Comments RDW (test code = RDW) 17.9 11.5-14.5 [facility] HospitalNcfpcrhIWXCNVQJLZ5484-92-65 10:47:00 Test Item Value Reference Range Interpretation Comments RBC (test code = RBC) 3.42 4.70-6.10 [facility] HospitalWctljbzNVHUANLOUQ7951-29-21 10:47:00 Test Item Value Reference Range Interpretation Comments Hgb (test code = Hgb) 8.8 14.0-18.0 [facility] HospitalFqlussoBKSWKOXTSZ7321-91-42 10:47:00 Test Item Value Reference Range Interpretation Comments WBC (test code = WBC) 10.3 3.7-10.4 [facility]annCARD[facility]AC [id number] 10:47:00 Test Item Value Reference Range Interpretation Comments BNP (test code = BNP) 288 [facility]annCHEM [id number] 10:47:00 Test Item Value Reference Range Interpretation Comments Phosphorus (test code = Phosphorus) 3.3 2.5-4.5 [facility]2018-12-28 10:47:00 Test Item Value Reference Range Interpretation Comments Magnesium Lvl (test code = Magnesium 2.2 1.8-2.4 Lvl) [facility]2018-12-28 10:47:00 Test Item Value Reference Range Interpretation Comments Albumin Lvl (test code = Albumin Lvl) 2.3 3.5-5.0 [facility]2018-12-28 10:47:00 Test Item Value Reference Range Interpretation Comments Creatinine Lvl (test code = Creatinine 0.81 0.50-1.40 Lvl) [facility]2018-12-28 10:47:00 Test Item Value Reference Range Interpretation Comments ALT (test code = ALT) 14 See_Comment [Auto mated message] The system which ge nerated this result transmit garrett reference range : <=65. The reference range was not used to interpr et this result as cassie l/abnormal. [facility]2018-12-28 10:47:00 Test Item Value Reference Range Interpretation Comments AST (test code = AST) 9 See_Comment [Auto mated message] The system which ge nerated this result transmit garrett reference range : <=37. The reference range was not used to interpr et this result as cassie l/abnormal. [facility]2018-12-28 10:47:00 Test Item Value Reference Range Interpretation Comments eGFR (test code = eGFR) 97 [facility]2018-12-28 10:47:00 Test Item Value Reference Range Interpretation Comments Sodium Lvl (test code = Sodium Lvl) 143 135-145 [facility]2018-12-28 10:47:00 Test Item Value Reference Range Interpretation Comments Potassium Lvl (test code = Potassium 3.3 3.5-5.1 Lvl) [facility]2018-12-28 10:47:00 Test Item Value Reference Range Interpretation Comments Chloride Lvl (test code = Chloride Lvl) 107 95-109 [facility]2018-12-28 10:47:00 Test Item Value Reference Range Interpretation Comments Total Protein (test code = Total 6.7 6.4-8.4 Protein) [facility]2018-12-28 10:47:00 Test Item Value Reference Range Interpretation Comments Bili Total (test code = Bili Total) 0.7 0.2-1.3 [facility]2018-12-28 10:47:00 Test Item Value Reference Range Interpretation Comments Calcium Lvl (test code = Calcium Lvl) 8.3 8.5-10.5 [facility]2018-12-28 10:47:00 Test Item Value Reference Range Interpretation Comments CO2 (test code = CO2) 29 24-32 [facility]2018-12-28 10:47:00 Test Item Value Reference Range Interpretation Comments BUN (test code = BUN) 14 7-22 [facility]2018-12-28 10:47:00 Test Item Value Reference Range Interpretation Comments Glucose Lvl (test code = Glucose Lvl) 128 70-99 [facility]2018-12-28 10:47:00 Test Item Value Reference Range Interpretation Comments Alk Phos (test code = Alk Phos) 100 39-136 [facility]2018-12-28 10:47:00 Test Item Value Reference Range Interpretation Comments B/C Ratio (test code = B/C Ratio) 17 1 6-25 [facility]2018-12-28 10:47:00 Test Item Value Reference Range Interpretation Comments Globulin (test code = Globulin) 4.4 2.7-4.2 [facility]2018-12-28 10:47:00 Test Item Value Reference Range Interpretation Comments A/G Ratio (test code = A/G Ratio) 0.5 1 0.7-1.6 [facility]2018-12-28 10:47:00 Test Item Value Reference Range Interpretation Comments AGAP (test code = AGAP) 10.3 10.0-20.0 [facility] HospitalQdjcfegCRPTHATPWE7556-23-98 10:47:00 Test Item Value Reference Range Interpretation Comments Microcyte (test code = 1+ *ABN*(03/01/18 Microcyte) 4:47 AM) [facility] HospitalAbyswdkYFOJHIVIEY2250-27-44 10:47:00 Test Item Value Reference Range Interpretation Comments Lymphocytes # (test code = Lymphocytes 1.4 1.0-5.5 #) [facility] HospitalXbptorfHZYQFMHUDC5557-24-69 10:47:00 Test Item Value Reference Range Interpretation Comments Monocytes # (test code 0.8 See_Comment [Aut omated message] The = Monocytes #) system which generated this result tra nsmitted reference range : <=0.8. The reference r ondina was not used to int erpret this result as normal/abnormal . [facility] HospitalWbblkveVZFQZLHHSL2833-25-81 10:47:00 Test Item Value Reference Range Interpretation Comments Segs (test code = Segs) 78.3 45.0-75.0 [facility] HospitalVltmtuqLSUNZJPSVT4508-98-93 10:47:00 Test Item Value Reference Range Interpretation Comments Basophils (test code = 0.4 See_Comment [Aut omated message] The Basophils) system which ge nerated this result tra nsmitted reference range : <=1.0. The reference r ondina was not used to int erpret this result as normal/abnormal . [facility] HospitalJevdiwwVTPNKUZKKI1888-20-59 10:47:00 Test Item Value Reference Range Interpretation Comments Neutrophils # (test code = Neutrophils 8.1 1.5-8.1 #) [facility] HospitalKsvckasLPJSULUAST4495-01-94 10:47:00 Test Item Value Reference Range Interpretation Comments Monocytes (test code = Monocytes) 7.9 2.0-12.0 [facility] HospitalMuyyagmHUXYSUAERR5531-44-18 10:47:00 Test Item Value Reference Range Interpretation Comments Lymphocytes (test code = Lymphocytes) 13.4 20.0-40.0 [facility] HospitalDhjzdqzVSKECSEEJG2480-64-13 10:47:00 Test Item Value Reference Range Interpretation Comments Hct (test code = Hct) 27.0 42.0-54.0 [facility] HospitalDvinretQHXXSAUKHL2739-65-18 10:47:00 Test Item Value Reference Range Interpretation Comments MCV (test code = MCV) 78.7 80.0-94.0 [facility] HospitalFouzdrtIBYIQEOBXY0874-15-29 10:47:00 Test Item Value Reference Range Interpretation Comments MCHC (test code = MCHC) 32.7 32.0-36.0 [facility] HospitalChaxjjlQAYTUUCTCF3909-24-70 10:47:00 Test Item Value Reference Range Interpretation Comments MCH (test code = MCH) 25.8 pg 27.0-31.0 [facility] HospitalAitfzenAKUJFOPZVT3351-02-44 10:47:00 Test Item Value Reference Range Interpretation Comments MPV (test code = MPV) 8.2 7.4-10.4 [facility] HospitalBfhfhipWTPGEPCERL7974-26-80 10:47:00 Test Item Value Reference Range Interpretation Comments Platelet (test code = Platelet) 475 133-450 [facility]landsHkngdxyRQOXWCDYGA9901-85-81 10:47:00 Test Item Value Reference Range Interpretation Comments RDW (test code = RDW) 17.9 11.5-14.5 [facility]OajfxgmAZHRSTASAJ0700-90-40 10:47:00 Test Item Value Reference Range Interpretation Comments RBC (test code = RBC) 3.42 4.70-6.10 [facility]landsHgwowwqASMZIOEMTX7737-61-84 10:47:00 Test Item Value Reference Range Interpretation Comments Hgb (test code = Hgb) 8.8 14.0-18.0 [facility] CenterKturarvHOWGVRMQLZ6073-73-52 10:47:00 Test Item Value Reference Range Interpretation Comments WBC (test code = WBC) 10.3 3.7-10.4 [facility]landsCARDIAC SNCFSZH6091-32-77 10:47:00 Test Item Value Reference Range Interpretation Comments BNP (test code = BNP) 288 [facility]landsCHE[facility] LNBHV8989-18-90 10:47:00 Test Item Value Reference Range Interpretation Comments Phosphorus (test code = Phosphorus) 3.3 2.5-4.5 [facility]landsCHE[facility] YYFCP0489-58-94 10:47:00 Test Item Value Reference Range Interpretation Comments Magnesium Lvl (test code = Magnesium 2.2 1.8-2.4 Lvl) [facility] [id number] 10:47:00 Test Item Value Reference Range Interpretation Comments Albumin Lvl (test code = Albumin Lvl) 2.3 3.5-5.0 [facility]landsCHEM [id number] 10:47:00 Test Item Value Reference Range Interpretation Comments Creatinine Lvl (test code = Creatinine 0.81 0.50-1.40 Lvl) [facility] [id number] 10:47:00 Test Item Value Reference Range Interpretation Comments ALT (test code = ALT) 14 See_Comment [Auto mated message] The system which ge nerated this result transmit garrett reference range : <=65. The reference range was not used to interpr et this result as cassie l/abnormal. [facility]2018-12-28 10:47:00 Test Item Value Reference Range Interpretation Comments AST (test code = AST) 9 See_Comment [Auto mated message] The system which ge nerated this result transmit garrett reference range : <=37. The reference range was not used to interpr et this result as cassie l/abnormal. [facility]2018-12-28 10:47:00 Test Item Value Reference Range Interpretation Comments eGFR (test code = eGFR) 97 [facility]2018-12-28 10:47:00 Test Item Value Reference Range Interpretation Comments Sodium Lvl (test code = Sodium Lvl) 143 135-145 [facility]2018-12-28 10:47:00 Test Item Value Reference Range Interpretation Comments Potassium Lvl (test code = Potassium 3.3 3.5-5.1 Lvl) [facility]2018-12-28 10:47:00 Test Item Value Reference Range Interpretation Comments Chloride Lvl (test code = Chloride Lvl) 107 95-109 [facility]2018-12-28 10:47:00 Test Item Value Reference Range Interpretation Comments Total Protein (test code = Total 6.7 6.4-8.4 Protein) [facility]2018-12-28 10:47:00 Test Item Value Reference Range Interpretation Comments Bili Total (test code = Bili Total) 0.7 0.2-1.3 [facility]2018-12-28 10:47:00 Test Item Value Reference Range Interpretation Comments Calcium Lvl (test code = Calcium Lvl) 8.3 8.5-10.5 [facility]2018-12-28 10:47:00 Test Item Value Reference Range Interpretation Comments CO2 (test code = CO2) 29 24-32 [facility]2018-12-28 10:47:00 Test Item Value Reference Range Interpretation Comments BUN (test code = BUN) 14 7-22 [facility]2018-12-28 10:47:00 Test Item Value Reference Range Interpretation Comments Glucose Lvl (test code = Glucose Lvl) 128 70-99 [facility]2018-12-28 10:47:00 Test Item Value Reference Range Interpretation Comments Alk Phos (test code = Alk Phos) 100 39-136 [facility]2018-12-28 10:47:00 Test Item Value Reference Range Interpretation Comments B/C Ratio (test code = B/C Ratio) 17 1 6-25 [facility]2018-12-28 10:47:00 Test Item Value Reference Range Interpretation Comments Globulin (test code = Globulin) 4.4 2.7-4.2 [facility]2018-12-28 10:47:00 Test Item Value Reference Range Interpretation Comments A/G Ratio (test code = A/G Ratio) 0.5 1 0.7-1.6 [facility]2018-12-28 10:47:00 Test Item Value Reference Range Interpretation Comments AGAP (test code = AGAP) 10.3 10.0-20.0 [facility] HospitalTjtxucaEPPNRFCDIT4973-89-97 10:47:00 Test Item Value Reference Range Interpretation Comments Microcyte (test code = 1+ *ABN*(03/01/18 Microcyte) 4:47 AM) [facility] HospitalGxdpppyEGNVGSVWQQ9946-61-74 10:47:00 Test Item Value Reference Range Interpretation Comments Lymphocytes # (test code = Lymphocytes 1.4 1.0-5.5 #) [facility] HospitalWktomohNJMCOZONOS0549-77-61 10:47:00 Test Item Value Reference Range Interpretation Comments Monocytes # (test code 0.8 See_Comment [Aut omated message] The = Monocytes #) system which generated this result tra nsmitted reference range : <=0.8. The reference r ondina was not used to int erpret this result as normal/abnormal . [facility] HospitalWwqaxpeTKPCIXKVRA3030-21-47 10:47:00 Test Item Value Reference Range Interpretation Comments Segs (test code = Segs) 78.3 45.0-75.0 [facility] HospitalPfgydoiGDOKWSGSQU2117-50-39 10:47:00 Test Item Value Reference Range Interpretation Comments Basophils (test code = 0.4 See_Comment [Aut omated message] The Basophils) system which ge nerated this result tra nsmitted reference range : <=1.0. The reference r ondina was not used to int erpret this result as normal/abnormal . [facility] HospitalYniqcawIODLCDCPRD3195-59-95 10:47:00 Test Item Value Reference Range Interpretation Comments Neutrophils # (test code = Neutrophils 8.1 1.5-8.1 #) [facility] HospitalLcnoehaPNEKMHXRUC3435-05-39 10:47:00 Test Item Value Reference Range Interpretation Comments Monocytes (test code = Monocytes) 7.9 2.0-12.0 [facility] HospitalXpctfcfYFWGEFQXWV5759-29-68 10:47:00 Test Item Value Reference Range Interpretation Comments Lymphocytes (test code = Lymphocytes) 13.4 20.0-40.0 [facility] HospitalXkpigkdTUSIYGFQEO0510-42-31 10:47:00 Test Item Value Reference Range Interpretation Comments Hct (test code = Hct) 27.0 42.0-54.0 [facility] HospitalMwlhfhnKGYZMGTHPB3286-59-35 10:47:00 Test Item Value Reference Range Interpretation Comments MCV (test code = MCV) 78.7 80.0-94.0 [facility] HospitalPzcxjzyOYLXDNIUEW0613-43-03 10:47:00 Test Item Value Reference Range Interpretation Comments MCHC (test code = MCHC) 32.7 32.0-36.0 [facility] HospitalNisdhazQVZWJUHVCA5596-56-84 10:47:00 Test Item Value Reference Range Interpretation Comments MCH (test code = MCH) 25.8 pg 27.0-31.0 [id number] 10:47:00 Test Item Value Reference Range Interpretation Comments MPV (test code = MPV) 8.2 7.4-10.4 [facility] H[id number] 10:47:00 Test Item Value Reference Range Interpretation Comments Platelet (test code = Platelet) 475 133-450 [facility] HospitalXomfabpYRSLWIORRM2615-98-86 10:47:00 Test Item Value Reference Range Interpretation Comments RDW (test code = RDW) 17.9 11.5-14.5 [facility] H[id number] 10:47:00 Test Item Value Reference Range Interpretation Comments RBC (test code = RBC) 3.42 4.70-6.10 [facility] HospitalNhyelwmXCCUUNCKEL7094-94-68 10:47:00 Test Item Value Reference Range Interpretation Comments Hgb (test code = Hgb) 8.8 14.0-18.0 [facility] HospitalWelzbczEKVOLBRMGS6209-86-03 10:47:00 Test Item Value Reference Range Interpretation Comments WBC (test code = WBC) 10.3 3.7-10.4 [facility] [id number] 16:12:00 Test Item Value Reference Range Interpretation Comments Troponin-I (test code no gt See_Comment [Auto mated message] The = Troponin-I) system which g enerated this result transmit garrett reference range : <=0.40. The reference r ondina was not used to interpr et this result as cassie l/abnormal. [facility]2018-12-27 16:12:00 Test Item Value Reference Range Interpretation Comments Magnesium Lvl (test code = Magnesium 2.1 1.8-2.4 Lvl) [facility]2018-12-27 16:12:00 Test Item Value Reference Range Interpretation Comments Alk Phos (test code = Alk Phos) 132 39-136 [facility]2018-12-27 16:12:00 Test Item Value Reference Range Interpretation Comments Potassium Lvl (test code = Potassium 3.8 3.5-5.1 Lvl) [facility]2018-12-27 16:12:00 Test Item Value Reference Range Interpretation Comments Chloride Lvl (test code = Chloride Lvl) 108 95-109 [facility]2018-12-27 16:12:00 Test Item Value Reference Range Interpretation Comments Sodium Lvl (test code = Sodium Lvl) 141 135-145 [facility]2018-12-27 16:12:00 Test Item Value Reference Range Interpretation Comments eGFR (test code = eGFR) 96 [facility]2018-12-27 16:12:00 Test Item Value Reference Range Interpretation Comments B/C Ratio (test code = B/C Ratio) 7 1 6-25 [facility]2018-12-27 16:12:00 Test Item Value Reference Range Interpretation Comments AST (test code = AST) 15 See_Comment [Auto mated message] The system which ge nerated this result transmit garrett reference range : <=37. The reference range was not used to interpr et this result as cassie l/abnormal. [facility]2018-12-27 16:12:00 Test Item Value Reference Range Interpretation Comments Creatinine Lvl (test code = Creatinine 0.83 0.50-1.40 Lvl) [facility]2018-12-27 16:12:00 Test Item Value Reference Range Interpretation Comments ALT (test code = ALT) 20 See_Comment [Auto mated message] The system which ge nerated this result transmit garrett reference range : <=65. The reference range was not used to interpr et this result as cassie l/abnormal. [facility] [employer] [id number] 16:12:00 Test Item Value Reference Range Interpretation Comments AGAP (test code = AGAP) 13.8 10.0-20.0 [facility] [id number] 16:12:00 Test Item Value Reference Range Interpretation Comments Albumin Lvl (test code = Albumin Lvl) 2.5 3.5-5.0 [facility] [id number] 16:12:00 Test Item Value Reference Range Interpretation Comments Glucose Lvl (test code = Glucose Lvl) 153 70-[address] [facility] [employer] [id number] 16:12:00 Test Item Value Reference Range Interpretation Comments BUN (test code = BUN) 6 7-22 [facility] [id number] 16:12:00 Test Item Value Reference Range Interpretation Comments CO2 (test code = CO2) 23 24-[address] [facility] [employer] [id number] 16:12:00 Test Item Value Reference Range Interpretation Comments Calcium Lvl (test code = Calcium Lvl) 8.8 8.5-10.[address] [facility] [employer] [id number] 16:12:00 Test Item Value Reference Range Interpretation Comments Bili Total (test code = Bili Total) 0.2 0.2-1.3 [facility] [id number] 16:12:00 Test Item Value Reference Range Interpretation Comments Total Protein (test code = Total 7.5 6.4-8.4 Protein) [facility] [id number] 16:12:00 Test Item Value Reference Range Interpretation Comments Globulin (test code = Globulin) 5.0 2.7-4.[address] [facility] [employer] [id number] 16:12:00 Test Item Value Reference Range Interpretation Comments A/G Ratio (test code = A/G Ratio) 0.5 1 0.7-1.6 [facility] [id number] 16:12:00 Test Item Value Reference Range Interpretation Comments Phosphorus (test code = Phosphorus) 2.9 2.5-4.5 [facility] [id number] 16:12:00 Test Item Value Reference Range Interpretation Comments Troponin-I (test code no gt See_Comment [Auto mated message] The = Troponin-I) system which g enerated this result transmit garrett reference range : <=0.40. The reference r ondina was not used to interpr et this result as cassie l/abnormal. [facility] [employer] [facility] [id number] 16:12:00 Test Item Value Reference Range Interpretation Comments Magnesium Lvl (test code = Magnesium 2.1 1.8-2.4 Lvl) [facility] [id number] 16:12:00 Test Item Value Reference Range Interpretation Comments Alk Phos (test code = Alk Phos) 132 39-136 [facility] [id number] 16:12:00 Test Item Value Reference Range Interpretation Comments Potassium Lvl (test code = Potassium 3.8 3.5-5.1 Lvl) [facility] [id number] 16:12:00 Test Item Value Reference Range Interpretation Comments Chloride Lvl (test code = Chloride Lvl) 108 95-109 [facility] [id number] 16:12:00 Test Item Value Reference Range Interpretation Comments Sodium Lvl (test code = Sodium Lvl) 141 135-145 [facility] [id number] 16:12:00 Test Item Value Reference Range Interpretation Comments eGFR (test code = eGFR) 96 [facility]2018-12-27 16:12:00 Test Item Value Reference Range Interpretation Comments B/C Ratio (test code = B/C Ratio) 7 1 6-25 [facility]2018-12-27 16:12:00 Test Item Value Reference Range Interpretation Comments AST (test code = AST) 15 See_Comment [Auto mated message] The system which ge nerated this result transmit garrett reference range : <=37. The reference range was not used to interpr et this result as cassie l/abnormal. [facility] [id number] 16:12:00 Test Item Value Reference Range Interpretation Comments Creatinine Lvl (test code = Creatinine 0.83 0.50-1.40 Lvl) [facility]2018-12-27 16:12:00 Test Item Value Reference Range Interpretation Comments ALT (test code = ALT) 20 See_Comment [Auto mated message] The system which ge nerated this result transmit garrett reference range : <=65. The reference range was not used to interpr et this result as cassie l/abnormal. [facility] [employer] [id number] 16:12:00 Test Item Value Reference Range Interpretation Comments AGAP (test code = AGAP) 13.8 10.0-20.[address] [facility] [employer] [id number] 16:12:00 Test Item Value Reference Range Interpretation Comments Albumin Lvl (test code = Albumin Lvl) 2.5 3.5-5.[address] [facility] [employer] [id number] 16:12:00 Test Item Value Reference Range Interpretation Comments Glucose Lvl (test code = Glucose Lvl) 153 70-[address] [facility] [employer] [id number] 16:12:00 Test Item Value Reference Range Interpretation Comments BUN (test code = BUN) 6 7-[address] [facility] [employer] [id number] 16:12:00 Test Item Value Reference Range Interpretation Comments CO2 (test code = CO2) 23 24-32 [facility] [id number] 16:12:00 Test Item Value Reference Range Interpretation Comments Calcium Lvl (test code = Calcium Lvl) 8.8 8.5-10.[address] [facility] [employer] [id number] 16:12:00 Test Item Value Reference Range Interpretation Comments Bili Total (test code = Bili Total) 0.2 0.2-1.[address] [facility] [employer] [id number] 16:12:00 Test Item Value Reference Range Interpretation Comments Total Protein (test code = Total 7.5 6.4-8.4 Protein) [facility] [id number] 16:12:00 Test Item Value Reference Range Interpretation Comments Globulin (test code = Globulin) 5.0 2.7-4.[address] [facility] [employer] [id number] 16:12:00 Test Item Value Reference Range Interpretation Comments A/G Ratio (test code = A/G Ratio) 0.5 1 0.7-1.[address] [facility] [employer] [id number] 16:12:00 Test Item Value Reference Range Interpretation Comments Phosphorus (test code = Phosphorus) 2.9 2.5-4.5 [facility] [id number] 16:12:00 Test Item Value Reference Range Interpretation Comments Troponin-I (test code no gt See_Comment [Auto mated message] The = Troponin-I) system which g enerated this result transmit garrett reference range : <=0.40. The reference r ondina was not used to interpr et this result as cassie l/abnormal. [facility] [employer] [facility] ([place] [id number] 16:12:00 Test Item Value Reference Range Interpretation Comments Magnesium Lvl (test code = Magnesium 2.1 1.8-2.4 Lvl) [facility]2018-12-27 16:12:00 Test Item Value Reference Range Interpretation Comments Alk Phos (test code = Alk Phos) 132 39-136 [facility]2018-12-27 16:12:00 Test Item Value Reference Range Interpretation Comments Potassium Lvl (test code = Potassium 3.8 3.5-5.1 Lvl) [facility]2018-12-27 16:12:00 Test Item Value Reference Range Interpretation Comments Chloride Lvl (test code = Chloride Lvl) 108 95-109 [facility]2018-12-27 16:12:00 Test Item Value Reference Range Interpretation Comments Sodium Lvl (test code = Sodium Lvl) 141 135-145 [facility]2018-12-27 16:12:00 Test Item Value Reference Range Interpretation Comments eGFR (test code = eGFR) 96 [facility]2018-12-27 16:12:00 Test Item Value Reference Range Interpretation Comments B/C Ratio (test code = B/C Ratio) 7 1 6-25 [facility]2018-12-27 16:12:00 Test Item Value Reference Range Interpretation Comments AST (test code = AST) 15 See_Comment [Auto mated message] The system which ge nerated this result transmit garrett reference range : <=37. The reference range was not used to interpr et this result as cassie l/abnormal. [facility]2018-12-27 16:12:00 Test Item Value Reference Range Interpretation Comments Creatinine Lvl (test code = Creatinine 0.83 0.50-1.40 Lvl) [facility]2018-12-27 16:12:00 Test Item Value Reference Range Interpretation Comments ALT (test code = ALT) 20 See_Comment [Auto mated message] The system which ge nerated this result transmit garrett reference range : <=65. The reference range was not used to interpr et this result as cassie l/abnormal. [facility]2018-12-27 16:12:00 Test Item Value Reference Range Interpretation Comments AGAP (test code = AGAP) 13.8 10.0-20.0 [facility]2018-12-27 16:12:00 Test Item Value Reference Range Interpretation Comments Albumin Lvl (test code = Albumin Lvl) 2.5 3.5-5.0 [facility]2018-12-27 16:12:00 Test Item Value Reference Range Interpretation Comments Glucose Lvl (test code = Glucose Lvl) 153 70-99 [facility]2018-12-27 16:12:00 Test Item Value Reference Range Interpretation Comments BUN (test code = BUN) 6 7-22 [facility]2018-12-27 16:12:00 Test Item Value Reference Range Interpretation Comments CO2 (test code = CO2) 23 24-32 [facility]2018-12-27 16:12:00 Test Item Value Reference Range Interpretation Comments Calcium Lvl (test code = Calcium Lvl) 8.8 8.5-10.5 [facility]2018-12-27 16:12:00 Test Item Value Reference Range Interpretation Comments Bili Total (test code = Bili Total) 0.2 0.2-1.3 [facility]2018-12-27 16:12:00 Test Item Value Reference Range Interpretation Comments Total Protein (test code = Total 7.5 6.4-8.4 Protein) [facility]2018-12-27 16:12:00 Test Item Value Reference Range Interpretation Comments Globulin (test code = Globulin) 5.0 2.7-4.2 [facility]2018-12-27 16:12:00 Test Item Value Reference Range Interpretation Comments A/G Ratio (test code = A/G Ratio) 0.5 1 0.7-1.6 [facility]2018-12-27 16:12:00 Test Item Value Reference Range Interpretation Comments Phosphorus (test code = Phosphorus) 2.9 2.5-4.5 [facility] [id number] 04:37:00 Test Item Value Reference Range Interpretation Comments Troponin-I (test code no gt See_Comment [Auto mated message] The = Troponin-I) system which g enerated this result transmit garrett reference range : <=0.40. The reference r ondina was not used to interpr et this result as cassie l/abnormal. [facility] HospitalBloglovinCARDIAC [id number] 04:37:00 Test Item Value Reference Range Interpretation Comments proBNP (test code = 2678 See_Comment [Automa garrett message] The proBNP) system which ge nerated this result tra nsmitted reference range : <=125. The reference r ondina was not used to int erpret this result as cassie l/abnormal. [facility] [id number] 04:37:00 Test Item Value Reference Range Interpretation Comments CO2 (test code = CO2) 25 24-32 [facility] Hos[id number] 04:37:00 Test Item Value Reference Range Interpretation Comments Calcium Lvl (test code = Calcium Lvl) 8.1 8.5-10.5 [facility] Hosp[id number] 04:37:00 Test Item Value Reference Range Interpretation Comments Potassium Lvl (test code = Potassium 3.6 3.5-5.1 Lvl) [facility] Hos[id number] 04:37:00 Test Item Value Reference Range Interpretation Comments Chloride Lvl (test code = Chloride Lvl) 108 95-109 [facility] HospitalYhxttbwAFMNECMOHGSX6951-18-34 04:37:00 Test Item Value Reference Range Interpretation Comments Sodium Lvl (test code = Sodium Lvl) 142 135-145 [facility] HospitalDnlyorlPLHYOEHWNFFB0560-21-77 04:37:00 Test Item Value Reference Range Interpretation Comments Creatinine Lvl (test code = Creatinine 0.80 0.50-1.40 Lvl) [facility] HospitalYpbrtuaPKSUBSWBNSDB4155-05-09 04:37:00 Test Item Value Reference Range Interpretation Comments BUN (test code = BUN) 8 7-22 [facility] HospitalHvgsndtGTYMUPHWGGCF6078-09-01 04:37:00 Test Item Value Reference Range Interpretation Comments Glucose Lvl (test code = Glucose Lvl) 88 70-99 [facility]IjdlrdvIBEHXHCJDUUZ7427-76-19 04:37:00 Test Item Value Reference Range Interpretation Comments eGFR (test code = eGFR) 97 [facility] HospitalKhizktfQSAHWAUGGLUH8893-95-83 04:37:00 Test Item Value Reference Range Interpretation Comments AGAP (test code = AGAP) 12.6 10.0-20.0 [facility]HjrwowdGVQBQVPHGQ3455-05-63 04:37:00 Test Item Value Reference Range Interpretation Comments WBC (test code = WBC) 7.8 3.7-10.4 [facility] HospitalPkpcppcKBYDHRJFGJ3582-79-88 04:37:00 Test Item Value Reference Range Interpretation Comments RBC (test code = RBC) 3.53 4.70-6.10 [facility] HospitalXeuimnaVHYAEIKHVN5361-64-75 04:37:00 Test Item Value Reference Range Interpretation Comments Hgb (test code = Hgb) 9.0 14.0-18.0 [facility] HospitalSdfaoslAMSPNNMTWH7769-75-26 04:37:00 Test Item Value Reference Range Interpretation Comments MCH (test code = MCH) 25.4 pg 27.0-31.0 [facility] HospitalAthqndsPOIIFJGJMG4341-75-11 04:37:00 Test Item Value Reference Range Interpretation Comments Hct (test code = Hct) 27.5 42.0-54.0 [facility] HospitalMzshlivNUAPLWURUP6470-94-04 04:37:00 Test Item Value Reference Range Interpretation Comments MCV (test code = MCV) 78.1 80.0-94.0 [facility] HospitalQynqyjbMHQQSMDPKL7641-96-64 04:37:00 Test Item Value Reference Range Interpretation Comments Platelet (test code = Platelet) 400 133-450 [facility] HospitalRmbfbrkQHYJWLOLBA5128-85-84 04:37:00 Test Item Value Reference Range Interpretation Comments MCHC (test code = MCHC) 32.5 32.0-36.0 [facility] HospitalKqwslzxMHALXIKQWJ3466-65-06 04:37:00 Test Item Value Reference Range Interpretation Comments MPV (test code = MPV) 8.2 7.4-10.4 [facility] HospitalKlwfucpYNQNAPMYIK2812-57-62 04:37:00 Test Item Value Reference Range Interpretation Comments RDW (test code = RDW) 17.8 11.5-14.5 [facility] HospitalNvlyrrqVXGVEKCZAG2699-22-29 04:37:00 Test Item Value Reference Range Interpretation Comments Microcyte (test code = 1+ *ABN*(02/27/18 Microcyte) 10:37 PM) [facility] Hospit[id number] 04:37:00 Test Item Value Reference Range Interpretation Comments Eosinophils (test code = 4.0 See_Comment [A utomated message] The Eosinophils) system which ge nerated this result tra nsmitted reference range : <=4.0. The reference r ondina was not used to int erpret this result as normal/abnormal . [facility] HospitalIjbxfjzDXYNBELCKP8175-78-69 04:37:00 Test Item Value Reference Range Interpretation Comments Neutrophils # (test code = Neutrophils 4.8 1.5-8.1 #) [facility] HospitalWxgryrtNVQWWHQCSJ8864-11-78 04:37:00 Test Item Value Reference Range Interpretation Comments Basophils (test code = 1.2 See_Comment [Aut omated message] The Basophils) system which ge nerated this result tra nsmitted reference range : <=1.0. The reference r ondina was not used to int erpret this result as normal/abnormal . [facility] HospitalKxtlwtePPSWPBVKXV4548-35-63 04:37:00 Test Item Value Reference Range Interpretation Comments Lymphocytes # (test code = Lymphocytes 1.8 1.0-5.5 #) [facility] HospitalZyxtetuOSXXYFYIFV1316-22-00 04:37:00 Test Item Value Reference Range Interpretation Comments Monocytes # (test code 0.7 See_Comment [Aut omated message] The = Monocytes #) system which generated this result tra nsmitted reference range : <=0.8. The reference r ondina was not used to int erpret this result as normal/abnormal . [facility] HospitalBssrqlwPUHOPPSWDG0743-07-87 04:37:00 Test Item Value Reference Range Interpretation Comments Basophils # (test code 0.1 See_Comment [Aut omated message] The = Basophils #) system which generated this result tra nsmitted reference range : <=0.2. The reference r ondina was not used to int erpret this result as normal/abnormal . [facility] HospitalOzhjffkXSGPAQRFNT6396-97-89 04:37:00 Test Item Value Reference Range Interpretation Comments Eosinophils # (test code 0.3 See_Comment [A utomated message] The = Eosinophils #) system whic h generated this result tra nsmitted reference range : <=0.5. The reference r ondina was not used to int erpret this result as normal/abnormal . [facility]QwtukzsVIOBVWSBIS2219-68-08 04:37:00 Test Item Value Reference Range Interpretation Comments Lymphocytes (test code = Lymphocytes) 23.7 20.0-40.0 [facility] HospitalPwpapvdFHUYAZZUYA7782-55-65 04:37:00 Test Item Value Reference Range Interpretation Comments Monocytes (test code = Monocytes) 8.8 2.0-12.0 [facility] HospitalPpfpahcHITYRCOBIC5209-50-26 04:37:00 Test Item Value Reference Range Interpretation Comments Segs (test code = Segs) 62.3 45.0-75.0 [facility] AND [id number] 04:37:00 Test Item Value Reference Range Interpretation Comments UA Gran Cast (test code = UA Gran 6-10 /LPF Cast) [facility] AND [id number] 04:37:00 Test Item Value Reference Range Interpretation Comments UA Color (test code = Yellow *NA*(02/27/18 UA Color) 10:37 PM) [facility] AND [id number] 04:37:00 Test Item Value Reference Range Interpretation Comments UA Turbidity (test code Moderate = UA Turbidity) *ABN*(02/27/18 10:37 PM) [facility] AND [id number] 04:37:00 Test Item Value Reference Range Interpretation Comments UA Amorph Atiya (test code = Occasional /HPF UA Amorph Atiya) [facility] AND [id number] 04:37:00 Test Item Value Reference Range Interpretation Comments UA Bacteria (test code = UA Occasional /HPF Bacteria) [facility] AND [id number] 04:37:00 Test Item Value Reference Range Interpretation Comments UA Mucus (test code = UA Mucus) Few /LPF [facility] AND [id number] 04:37:00 Test Item Value Reference Range Interpretation Comments UA RBC (test code = 1 See_Comment [Automa garrett message] The UA RBC) system which ge nerated this result transmit garrett reference range : <=2. The reference range was not used to interpr et this result as cassie l/abnormal. [facility] AND [id number] 04:37:00 Test Item Value Reference Range Interpretation Comments UA Leuk Est (test Negative (02/27/18 10:37 code = UA Leuk Est) PM) [facility] AND [id number] 04:37:00 Test Item Value Reference Range Interpretation Comments UA Nitrite (test code Negative (02/27/18 = UA Nitrite) 10:37 PM) [facility] AND [id number] 04:37:00 Test Item Value Reference Range Interpretation Comments UA WBC (test code = 1 See_Comment [Automa garrett message] The UA WBC) system which ge nerated this result transmit garrett reference range : <=5. The reference range was not used to interpr et this result as cassie l/abnormal. [facility] AND [id number] 04:37:00 Test Item Value Reference Range Interpretation Comments UA Sq Epi (test code = UA Sq Occasional /LPF Epi) [facility] AND [id number] 04:37:00 Test Item Value Reference Range Interpretation Comments UA Protein (test code Negative (02/27/18 = UA Protein) 10:37 PM) [facility] AND [id number] 04:37:00 Test Item Value Reference Range Interpretation Comments UA Spec Grav (test code = UA Spec 1.009 1 Grav) [facility] AND [id number] 04:37:00 Test Item Value Reference Range Interpretation Comments UA pH (test code = UA pH) 6.0 1 5.0-8.0 [facility] AND [id number] 04:37:00 Test Item Value Reference Range Interpretation Comments UA Ketones (test code Negative *NA*(02/27/18 = UA Ketones) 10:37 PM) [facility] [facility] AND [id number] 04:37:00 Test Item Value Reference Range Interpretation Comments UA Urobilinogen (test code = UA <=1.0 mg/dL 0.1-1.0 Urobilinogen) [facility] AND [id number] 04:37:00 Test Item Value Reference Range Interpretation Comments UA Blood (test code = Negative (02/27/18 10:37 UA Blood) PM) [facility] AND [id number] 04:37:00 Test Item Value Reference Range Interpretation Comments UA Glucose (test code Negative *NA*(02/27/18 = UA Glucose) 10:37 PM) [facility] [id number] 04:37:00 Test Item Value Reference Range Interpretation Comments UA Bili (test code = Negative *NA*(02/27/18 UA Bili) 10:37 PM) [facility] [id number] 04:37:00 Test Item Value Reference Range Interpretation Comments Influ A (test code = Negative (02/27/18 10:37 Influ A) PM) [facility] [id number] 04:37:00 Test Item Value Reference Range Interpretation Comments Influ B (test code = Negative (02/27/18 10:37 Influ B) PM) [facility] [id number] 04:37:00 Test Item Value Reference Range Interpretation Comments Troponin-I (test code no gt See_Comment [Auto mated message] The = Troponin-I) system which g enerated this result transmit garrett reference range : <=0.40. The reference r ondina was not used to interpr et this result as cassie l/abnormal. [facility] [id number] 04:37:00 Test Item Value Reference Range Interpretation Comments proBNP (test code = 2678 See_Comment [Automa garrett message] The proBNP) system which ge nerated this result tra nsmitted reference range : <=125. The reference r ondina was not used to int erpret this result as cassie l/abnormal. [facility]yanyklSLEMDBLAYNEP6914-94-54 04:37:00 Test Item Value Reference Range Interpretation Comments CO2 (test code = CO2) 25 24-32 [facility]MnlhswoJKBAJZJKFNLH0671-29-09 04:37:00 Test Item Value Reference Range Interpretation Comments Calcium Lvl (test code = Calcium Lvl) 8.1 8.5-10.5 [facility] HospitalYbhdygwILXKUNVJHSQV0568-02-05 04:37:00 Test Item Value Reference Range Interpretation Comments Potassium Lvl (test code = Potassium 3.6 3.5-5.1 Lvl) [facility] HospitalBnkllegGLLEVWTUUNPU5953-33-61 04:37:00 Test Item Value Reference Range Interpretation Comments Chloride Lvl (test code = Chloride Lvl) 108 95-109 [facility] HospitalJuqsszbYWNZPYLFVEBU0975-13-40 04:37:00 Test Item Value Reference Range Interpretation Comments Sodium Lvl (test code = Sodium Lvl) 142 135-145 [facility]ZsdhnwlSWPUNTZRYZHT3966-86-83 04:37:00 Test Item Value Reference Range Interpretation Comments Creatinine Lvl (test code = Creatinine 0.80 0.50-1.40 Lvl) [facility] HospitalZpsmfouHFAOBWCHMJWE5216-29-41 04:37:00 Test Item Value Reference Range Interpretation Comments BUN (test code = BUN) 8 7-22 [facility] HospitalDyvepowLOXZABBDJHRF3936-72-72 04:37:00 Test Item Value Reference Range Interpretation Comments Glucose Lvl (test code = Glucose Lvl) 88 70-99 [facility] HospitalWyudralLLPQHTPBQATZ0129-09-99 04:37:00 Test Item Value Reference Range Interpretation Comments eGFR (test code = eGFR) 97 [facility] HospitalQtlwlkjBJTBATZATUMR8874-08-51 04:37:00 Test Item Value Reference Range Interpretation Comments AGAP (test code = AGAP) 12.6 10.0-20.0 [facility] HospitalUsdngtiUNEKYJZGUE3047-29-44 04:37:00 Test Item Value Reference Range Interpretation Comments WBC (test code = WBC) 7.8 3.7-10.4 [facility] HospitalXqyslwwCVOGZRGKSM5895-05-87 04:37:00 Test Item Value Reference Range Interpretation Comments RBC (test code = RBC) 3.53 4.70-6.10 [facility] HospitalWchlqqdYSDZHDFORN5417-69-41 04:37:00 Test Item Value Reference Range Interpretation Comments Hgb (test code = Hgb) 9.0 14.0-18.0 [facility] HospitalCqzyeceQQQRRFDSDW8454-98-11 04:37:00 Test Item Value Reference Range Interpretation Comments MCH (test code = MCH) 25.4 pg 27.0-31.0 [facility] HospitalNiysunhQPEMKANCCG4884-21-21 04:37:00 Test Item Value Reference Range Interpretation Comments Hct (test code = Hct) 27.5 42.0-54.0 [facility] HospitalLromjebSQQXNBWPXE9965-03-02 04:37:00 Test Item Value Reference Range Interpretation Comments MCV (test code = MCV) 78.1 80.0-94.0 [facility] HospitalDcruhtiOSBEZEFJYG8775-92-13 04:37:00 Test Item Value Reference Range Interpretation Comments Platelet (test code = Platelet) 400 133-450 [facility] HospitalYlmsrkjDSNKOAKBWY0024-85-09 04:37:00 Test Item Value Reference Range Interpretation Comments MCHC (test code = MCHC) 32.5 32.0-36.0 [facility] HospitalZdjhmtcYXHRFRSYCR4673-96-61 04:37:00 Test Item Value Reference Range Interpretation Comments MPV (test code = MPV) 8.2 7.4-10.4 [facility] HospitalVbjhjebCVEKNENOVO6067-33-69 04:37:00 Test Item Value Reference Range Interpretation Comments RDW (test code = RDW) 17.8 11.5-14.5 [facility] HospitalPjbzajuHJXLAFHRUH1114-15-13 04:37:00 Test Item Value Reference Range Interpretation Comments Microcyte (test code = 1+ *ABN*(02/27/18 Microcyte) 10:37 PM) [facility] HospitalNbempdjDTUSOKYFCQ0687-37-12 04:37:00 Test Item Value Reference Range Interpretation Comments Eosinophils (test code = 4.0 See_Comment [A utomated message] The Eosinophils) system which ge nerated this result tra nsmitted reference range : <=4.0. The reference r ondina was not used to int erpret this result as normal/abnormal . [facility] HospitalCfzypuuAIVYWXUZLM3887-86-97 04:37:00 Test Item Value Reference Range Interpretation Comments Neutrophils # (test code = Neutrophils 4.8 1.5-8.1 #) [facility] HospitalYiwgwxyWSMUPNYRNT1515-05-00 04:37:00 Test Item Value Reference Range Interpretation Comments Basophils (test code = 1.2 See_Comment [Aut omated message] The Basophils) system which ge nerated this result tra nsmitted reference range : <=1.0. The reference r ondina was not used to int erpret this result as normal/abnormal . [facility] HospitalOwsqkssZFUGDIXDSR0911-03-38 04:37:00 Test Item Value Reference Range Interpretation Comments Lymphocytes # (test code = Lymphocytes 1.8 1.0-5.5 #) [facility] HospitalIjdxhvuIFWETWUGUM0875-29-50 04:37:00 Test Item Value Reference Range Interpretation Comments Monocytes # (test code 0.7 See_Comment [Aut omated message] The = Monocytes #) system which generated this result tra nsmitted reference range : <=0.8. The reference r ondina was not used to int erpret this result as normal/abnormal . [facility] HospitalCkryenuRGXFSZMQDK2544-15-08 04:37:00 Test Item Value Reference Range Interpretation Comments Basophils # (test code 0.1 See_Comment [Aut omated message] The = Basophils #) system which generated this result tra nsmitted reference range : <=0.2. The reference r ondina was not used to int erpret this result as normal/abnormal . [facility] HospitalYgsskvcQXSDKFJZBD1665-74-35 04:37:00 Test Item Value Reference Range Interpretation Comments Eosinophils # (test code 0.3 See_Comment [A utomated message] The = Eosinophils #) system whic h generated this result tra nsmitted reference range : <=0.5. The reference r ondina was not used to int erpret this result as normal/abnormal . [facility] HospitalVsunbbzMPCEJSGONB5976-32-61 04:37:00 Test Item Value Reference Range Interpretation Comments Lymphocytes (test code = Lymphocytes) 23.7 20.0-40.0 [facility] HospitalFolcxyfTTITIAMTOX5239-40-20 04:37:00 Test Item Value Reference Range Interpretation Comments Monocytes (test code = Monocytes) 8.8 2.0-12.0 [facility] HospitalCpnzsktUDYFIVCRUE9081-46-50 04:37:00 Test Item Value Reference Range Interpretation Comments Segs (test code = Segs) 62.3 45.0-75.0 [facility] AND [id number] 04:37:00 Test Item Value Reference Range Interpretation Comments UA Gran Cast (test code = UA Gran 6-10 /LPF Cast) [facility] AND [id number] 04:37:00 Test Item Value Reference Range Interpretation Comments UA Color (test code = Yellow *NA*(02/27/18 UA Color) 10:37 PM) [facility] AND [id number] 04:37:00 Test Item Value Reference Range Interpretation Comments UA Turbidity (test code Moderate = UA Turbidity) *ABN*(02/27/18 10:37 PM) [facility] AND [id number] 04:37:00 Test Item Value Reference Range Interpretation Comments UA Amorph Atiya (test code = Occasional /HPF UA Amorph Atiya) [facility] AND [id number] 04:37:00 Test Item Value Reference Range Interpretation Comments UA Bacteria (test code = UA Occasional /HPF Bacteria) [facility] AND [id number] 04:37:00 Test Item Value Reference Range Interpretation Comments UA Mucus (test code = UA Mucus) Few /LPF [facility] AND [id number] 04:37:00 Test Item Value Reference Range Interpretation Comments UA RBC (test code = 1 See_Comment [Automa garrett message] The UA RBC) system which ge nerated this result transmit garrett reference range : <=2. The reference range was not used to interpr et this result as cassie l/abnormal. [facility] AND [id number] 04:37:00 Test Item Value Reference Range Interpretation Comments UA Leuk Est (test Negative (02/27/18 10:37 code = UA Leuk Est) PM) [facility] AND [id number] 04:37:00 Test Item Value Reference Range Interpretation Comments UA Nitrite (test code Negative (02/27/18 = UA Nitrite) 10:37 PM) [facility] AND [id number] 04:37:00 Test Item Value Reference Range Interpretation Comments UA WBC (test code = 1 See_Comment [Automa garrett message] The UA WBC) system which ge nerated this result transmit garrett reference range : <=5. The reference range was not used to interpr et this result as cassie l/abnormal. [facility] AND [id number] 04:37:00 Test Item Value Reference Range Interpretation Comments UA Sq Epi (test code = UA Sq Occasional /LPF Epi) [facility] AND [id number] 04:37:00 Test Item Value Reference Range Interpretation Comments UA Protein (test code Negative (02/27/18 = UA Protein) 10:37 PM) [facility] AND [id number] 04:37:00 Test Item Value Reference Range Interpretation Comments UA Spec Grav (test code = UA Spec 1.009 1 Grav) [facility] AND [id number] 04:37:00 Test Item Value Reference Range Interpretation Comments UA pH (test code = UA pH) 6.0 1 5.0-8.0 [facility] AND [id number] 04:37:00 Test Item Value Reference Range Interpretation Comments UA Ketones (test code Negative *NA*(02/27/18 = UA Ketones) 10:37 PM) [facility] AND [id number] 04:37:00 Test Item Value Reference Range Interpretation Comments UA Urobilinogen (test code = UA <=1.0 mg/dL 0.1-1.0 Urobilinogen) [facility] [id number] 04:37:00 Test Item Value Reference Range Interpretation Comments UA Blood (test code = Negative (02/27/18 10:37 UA Blood) PM) [facility] [id number] 04:37:00 Test Item Value Reference Range Interpretation Comments UA Glucose (test code Negative *NA*(02/27/18 = UA Glucose) 10:37 PM) [facility] AND [id number] 04:37:00 Test Item Value Reference Range Interpretation Comments UA Bili (test code = Negative *NA*(02/27/18 UA Bili) 10:37 PM) [facility] [id number] 04:37:00 Test Item Value Reference Range Interpretation Comments Influ A (test code = Negative (02/27/18 10:37 Influ A) PM) [facility] [id number] 04:37:00 Test Item Value Reference Range Interpretation Comments Influ B (test code = Negative (02/27/18 10:37 Influ B) PM) [facility] NQHLDYY3569-45-00 04:37:00 Test Item Value Reference Range Interpretation Comments Troponin-I (test code no gt See_Comment [Auto mated message] The = Troponin-I) system which g enerated this result transmit garrett reference range : <=0.40. The reference r ondina was not used to interpr et this result as cassie l/abnormal. [facility] VHYNJFT1986-05-78 04:37:00 Test Item Value Reference Range Interpretation Comments proBNP (test code = 2678 See_Comment [Automa garrett message] The proBNP) system which ge nerated this result tra nsmitted reference range : <=125. The reference r ondina was not used to int erpret this result as cassie l/abnormal. [facility] FfvaovdVBAGOKYPWQNM4297-85-32 04:37:00 Test Item Value Reference Range Interpretation Comments CO2 (test code = CO2) 24-32 [facility] HospitalHqoiexlIZDVZYCYIQLZ6804-57-09 04:37:00 Test Item Value Reference Range Interpretation Comments Calcium Lvl (test code = Calcium Lvl) 8.1 8.5-10.5 [facility] HospitalTfpfxawXIDONKVVYCZO0039-10-18 04:37:00 Test Item Value Reference Range Interpretation Comments Potassium Lvl (test code = Potassium 3.6 3.5-5.1 Lvl) [facility] HospitalWkjswldRCRCRVIDWTMW8608-87-43 04:37:00 Test Item Value Reference Range Interpretation Comments Chloride Lvl (test code = Chloride Lvl) 108 95-109 [facility] HospitalSzcqckdULBROHEKQFCG1689-60-65 04:37:00 Test Item Value Reference Range Interpretation Comments Sodium Lvl (test code = Sodium Lvl) 142 135-145 [facility] HospitalCgwakbbPQVRBOQULPTL9282-00-25 04:37:00 Test Item Value Reference Range Interpretation Comments Creatinine Lvl (test code = Creatinine 0.80 0.50-1.40 Lvl) [facility] HospitalJjqnhudPJSLQGWKZPIB3175-58-33 04:37:00 Test Item Value Reference Range Interpretation Comments BUN (test code = BUN) 8 7-22 [facility] HospitalYuwnujuHBPOWYCWVOKO0782-30-52 04:37:00 Test Item Value Reference Range Interpretation Comments Glucose Lvl (test code = Glucose Lvl) 88 70-99 [facility] HospitalEggecdmFUWFOWWQSVAO6438-96-51 04:37:00 Test Item Value Reference Range Interpretation Comments eGFR (test code = eGFR) 97 [facility] HospitalEejcekrKAEHSIHXUIQV4013-44-99 04:37:00 Test Item Value Reference Range Interpretation Comments AGAP (test code = AGAP) 12.6 10.0-20.0 [facility] HospitalZvjrrbzALVZXUWJTF7116-59-97 04:37:00 Test Item Value Reference Range Interpretation Comments WBC (test code = WBC) 7.8 3.7-10.4 [facility] HospitalIpbtxbiRHSKVKINHX9732-15-21 04:37:00 Test Item Value Reference Range Interpretation Comments RBC (test code = RBC) 3.53 4.70-6.10 [facility] HospitalOunnhvuTSMEFSXFHC5042-74-05 04:37:00 Test Item Value Reference Range Interpretation Comments Hgb (test code = Hgb) 9.0 14.0-18.0 [facility] HospitalSsrteleQSLTSZHLWU7191-08-35 04:37:00 Test Item Value Reference Range Interpretation Comments MCH (test code = MCH) 25.4 pg 27.0-31.0 [facility] HospitalMcrppmxPPXJQUDEEQ7583-73-17 04:37:00 Test Item Value Reference Range Interpretation Comments Hct (test code = Hct) 27.5 42.0-54.0 [facility] HospitalWstgjmwRPMRZCWPDB3911-15-54 04:37:00 Test Item Value Reference Range Interpretation Comments MCV (test code = MCV) 78.1 80.0-94.0 [facility] HospitalLkibtllLHEAMIVXPC8904-03-37 04:37:00 Test Item Value Reference Range Interpretation Comments Platelet (test code = Platelet) 400 133-450 [facility] HospitalSnfnmjmEKCWNLCZKF8075-63-31 04:37:00 Test Item Value Reference Range Interpretation Comments MCHC (test code = MCHC) 32.5 32.0-36.0 [facility] HospitalGnzoajvUJVODTVCKM9145-10-82 04:37:00 Test Item Value Reference Range Interpretation Comments MPV (test code = MPV) 8.2 7.4-10.4 [facility] HospitalKuslvxgZYJBJIWPRL5898-79-00 04:37:00 Test Item Value Reference Range Interpretation Comments RDW (test code = RDW) 17.8 11.5-14.5 [facility] HospitalNhyuomtKNPICWBHIM4433-77-12 04:37:00 Test Item Value Reference Range Interpretation Comments Microcyte (test code = 1+ *ABN*(02/27/18 Microcyte) 10:37 PM) [facility] HospitalPtbclzuWRUATEYIOQ9728-13-19 04:37:00 Test Item Value Reference Range Interpretation Comments Eosinophils (test code = 4.0 See_Comment [A utomated message] The Eosinophils) system which ge nerated this result tra nsmitted reference range : <=4.0. The reference r ondina was not used to int erpret this result as normal/abnormal . [facility] HospitalCbnexznMJBQVWCUMU7490-20-54 04:37:00 Test Item Value Reference Range Interpretation Comments Neutrophils # (test code = Neutrophils 4.8 1.5-8.1 #) [facility] HospitalEkrwhoxNQOSZSNCYQ9282-41-79 04:37:00 Test Item Value Reference Range Interpretation Comments Basophils (test code = 1.2 See_Comment [Aut omated message] The Basophils) system which ge nerated this result tra nsmitted reference range : <=1.0. The reference r ondina was not used to int erpret this result as normal/abnormal . [facility] HospitalJbxquwwUAQCGZROKM3015-01-78 04:37:00 Test Item Value Reference Range Interpretation Comments Lymphocytes # (test code = Lymphocytes 1.8 1.0-5.5 #) [facility] HospitalNhdhgfuROXHNQSASO6387-85-66 04:37:00 Test Item Value Reference Range Interpretation Comments Monocytes # (test code 0.7 See_Comment [Aut omated message] The = Monocytes #) system which generated this result tra nsmitted reference range : <=0.8. The reference r ondina was not used to int erpret this result as normal/abnormal . [facility] HospitalQnzlczxCCCFPROOUF7289-51-03 04:37:00 Test Item Value Reference Range Interpretation Comments Basophils # (test code 0.1 See_Comment [Aut omated message] The = Basophils #) system which generated this result tra nsmitted reference range : <=0.2. The reference r ondina was not used to int erpret this result as normal/abnormal . [facility] HospitalFyqtlxfZMLGJNYTJT9329-04-30 04:37:00 Test Item Value Reference Range Interpretation Comments Eosinophils # (test code 0.3 See_Comment [A utomated message] The = Eosinophils #) system whic h generated this result tra nsmitted reference range : <=0.5. The reference r ondina was not used to int erpret this result as normal/abnormal . [facility] HospitalDkcnhpjEVHLUTDQBO0908-52-90 04:37:00 Test Item Value Reference Range Interpretation Comments Lymphocytes (test code = Lymphocytes) 23.7 20.0-40.0 [facility] HospitalHllhmecSZVYDDSPYU8057-32-78 04:37:00 Test Item Value Reference Range Interpretation Comments Monocytes (test code = Monocytes) 8.8 2.0-12.0 [facility] HospitalOdgdnaxMSFBYJNTCL2649-43-81 04:37:00 Test Item Value Reference Range Interpretation Comments Segs (test code = Segs) 62.3 45.0-75.0 [facility] AND [id number] 04:37:00 Test Item Value Reference Range Interpretation Comments UA Gran Cast (test code = UA Gran 6-10 /LPF Cast) [facility] AND [id number] 04:37:00 Test Item Value Reference Range Interpretation Comments UA Color (test code = Yellow *NA*(02/27/18 UA Color) 10:37 PM) [facility] AND [id number] 04:37:00 Test Item Value Reference Range Interpretation Comments UA Turbidity (test code Moderate = UA Turbidity) *ABN*(02/27/18 10:37 PM) [facility] AND [id number] 04:37:00 Test Item Value Reference Range Interpretation Comments UA Amorph Atiya (test code = Occasional /HPF UA Amorph Atiya) [facility] AND [id number] 04:37:00 Test Item Value Reference Range Interpretation Comments UA Bacteria (test code = UA Occasional /HPF Bacteria) [facility] AND [id number] 04:37:00 Test Item Value Reference Range Interpretation Comments UA Mucus (test code = UA Mucus) Few /LPF [facility] AND [id number] 04:37:00 Test Item Value Reference Range Interpretation Comments UA RBC (test code = 1 See_Comment [Automa garrett message] The UA RBC) system which ge nerated this result transmit garrett reference range : <=2. The reference range was not used to interpr et this result as cassie l/abnormal. [facility] AND [id number] 04:37:00 Test Item Value Reference Range Interpretation Comments UA Leuk Est (test Negative (02/27/18 10:37 code = UA Leuk Est) PM) [facility] AND [id number] 04:37:00 Test Item Value Reference Range Interpretation Comments UA Nitrite (test code Negative (02/27/18 = UA Nitrite) 10:37 PM) [facility] AND [id number] 04:37:00 Test Item Value Reference Range Interpretation Comments UA WBC (test code = 1 See_Comment [Automa garrett message] The UA WBC) system which ge nerated this result transmit garrett reference range : <=5. The reference range was not used to interpr et this result as cassie l/abnormal. [facility] AND [id number] 04:37:00 Test Item Value Reference Range Interpretation Comments UA Sq Epi (test code = UA Sq Occasional /LPF Epi) [facility] AND [id number] 04:37:00 Test Item Value Reference Range Interpretation Comments UA Protein (test code Negative (02/27/18 = UA Protein) 10:37 PM) [facility] AND [id number] 04:37:00 Test Item Value Reference Range Interpretation Comments UA Spec Grav (test code = UA Spec 1.009 1 Grav) [facility] AND [id number] 04:37:00 Test Item Value Reference Range Interpretation Comments UA pH (test code = UA pH) 6.0 1 5.0-8.0 [facility] AND [id number] 04:37:00 Test Item Value Reference Range Interpretation Comments UA Ketones (test code Negative *NA*(02/27/18 = UA Ketones) 10:37 PM) [facility] AND [id number] 04:37:00 Test Item Value Reference Range Interpretation Comments UA Urobilinogen (test code = UA <=1.0 mg/dL 0.1-1.0 Urobilinogen) [facility] AND [id number] 04:37:00 Test Item Value Reference Range Interpretation Comments UA Blood (test code = Negative (02/27/18 10:37 UA Blood) PM) [facility] AND [id number] 04:37:00 Test Item Value Reference Range Interpretation Comments UA Glucose (test code Negative *NA*(02/27/18 = UA Glucose) 10:37 PM) [facility] AND [id number] 04:37:00 Test Item Value Reference Range Interpretation Comments UA Bili (test code = Negative *NA*(02/27/18 UA Bili) 10:37 PM) [facility] [id number] 04:37:00 Test Item Value Reference Range Interpretation Comments Influ A (test code = Negative (02/27/18 10:37 Influ A) PM) [facility] [id number] 04:37:00 Test Item Value Reference Range Interpretation Comments Influ B (test code = Negative (02/27/18 10:37 Influ B) PM) [facility] HospitalPxgxolmILTMQZOKGRNB5100-57-02 12:27:00 Test Item Value Reference Range Interpretation Comments AGAP (test code = AGAP) 12.7 10.0-20.0 [facility] HospitalQanepeiAMXTSFPPNNIZ9739-39-38 12:27:00 Test Item Value Reference Range Interpretation Comments Glucose Lvl (test code = Glucose Lvl) 79 70-99 [facility] HospitalQjhboukXLPJOZFSISKB3737-54-18 12:27:00 Test Item Value Reference Range Interpretation Comments Potassium Lvl (test code = Potassium 3.7 3.5-5.1 Lvl) [facility]HgdmryiWUJDFSYYOSLF6128-00-40 12:27:00 Test Item Value Reference Range Interpretation Comments Sodium Lvl (test code = Sodium Lvl) 144 135-145 [facility] HospitalOwylavwMUAJWGMNRUEO8604-33-27 12:27:00 Test Item Value Reference Range Interpretation Comments Chloride Lvl (test code = Chloride Lvl) 109 95-109 [facility] HospitalOrocvpyKOPQUVNFNGOM1101-02-44 12:27:00 Test Item Value Reference Range Interpretation Comments eGFR (test code = eGFR) 104 [facility] HospitalFzruqwiVIZLVQGJJOWJ1828-92-55 12:27:00 Test Item Value Reference Range Interpretation Comments Creatinine Lvl (test code = Creatinine 0.68 0.50-1.40 Lvl) [facility] HospitalCdtvcveZSTLCLVSZISD9925-61-44 12:27:00 Test Item Value Reference Range Interpretation Comments Calcium Lvl (test code = Calcium Lvl) 8.2 8.5-10.5 [facility] HospitalMggrdsrRRHNITQPBEEJ8843-24-01 12:27:00 Test Item Value Reference Range Interpretation Comments CO2 (test code = CO2) 26 24-32 [facility] HospitalGwzcxfiRGMIEIBBVGEV7295-39-17 12:27:00 Test Item Value Reference Range Interpretation Comments BUN (test code = BUN) 9 7-22 [facility] HospitalCtygbciWIMVBFCXJX7724-41-59 12:27:00 Test Item Value Reference Range Interpretation Comments MPV (test code = MPV) 8.2 7.4-10.4 [facility] HospitalPifamflZSWLSEJQZX1939-39-34 12:27:00 Test Item Value Reference Range Interpretation Comments RDW (test code = RDW) 17.6 11.5-14.5 [facility] HospitalBxvsbhcUPERAAGKZF0620-91-14 12:27:00 Test Item Value Reference Range Interpretation Comments Platelet (test code = Platelet) 336 133-450 [facility] HospitalBtdvqqiMXDCHJOJOB6304-34-96 12:27:00 Test Item Value Reference Range Interpretation Comments MCV (test code = MCV) 80.4 80.0-94.0 [facility] HospitalPbqhweoUCYZNULRSM3594-43-07 12:27:00 Test Item Value Reference Range Interpretation Comments MCH (test code = MCH) 25.7 pg 27.0-31.0 [facility] HospitalXgypcvzCASSNQXDPT6343-97-92 12:27:00 Test Item Value Reference Range Interpretation Comments MCHC (test code = MCHC) 32.0 32.0-36.0 [facility] HospitalCccuuxgSJXLTZMNSJ7199-75-27 12:27:00 Test Item Value Reference Range Interpretation Comments RBC (test code = RBC) 3.65 4.70-6.10 [facility] HospitalMkhxreyWUPPOXKMTF7292-38-65 12:27:00 Test Item Value Reference Range Interpretation Comments WBC (test code = WBC) 6.8 3.7-10.4 [facility] HospitalMqrtyfzKULMZWBKPH4784-40-28 12:27:00 Test Item Value Reference Range Interpretation Comments Hgb (test code = Hgb) 9.4 14.0-18.0 [facility] HospitalQbhvgxpMICXLJQOAZ1235-54-97 12:27:00 Test Item Value Reference Range Interpretation Comments Hct (test code = Hct) 29.3 42.0-54.0 [facility] HospitalSmpisfiVHTFMXGDLX9050-52-97 12:27:00 Test Item Value Reference Range Interpretation Comments Lymphocytes # (test code = Lymphocytes 1.4 1.0-5.5 #) [facility] HospitalXerqzzgFQHCPYRPTS4842-78-64 12:27:00 Test Item Value Reference Range Interpretation Comments Monocytes # (test code 0.6 See_Comment [Aut omated message] The = Monocytes #) system which generated this result tra nsmitted reference range : <=0.8. The reference r ondina was not used to int erpret this result as normal/abnormal . [facility] HospitalKvdrxapMPJHVDKXUF0801-60-41 12:27:00 Test Item Value Reference Range Interpretation Comments Basophils # (test code 0.1 See_Comment [Aut omated message] The = Basophils #) system which generated this result tra nsmitted reference range : <=0.2. The reference r ondina was not used to int erpret this result as normal/abnormal . [facility] HospitalArakgogLWGWHFTKAX9171-21-46 12:27:00 Test Item Value Reference Range Interpretation Comments Neutrophils # (test code = Neutrophils 4.5 1.5-8.1 #) [facility] HospitalSwvpfmfSZPWJKNNPL5393-49-37 12:27:00 Test Item Value Reference Range Interpretation Comments Lymphocytes (test code = Lymphocytes) 19.9 20.0-40.0 [facility] HospitalIbwvnbzBONSGGDHIG9924-06-42 12:27:00 Test Item Value Reference Range Interpretation Comments Monocytes (test code = Monocytes) 8.8 2.0-12.0 [facility] HospitalAljtgfgGVBAHAOVLG7044-56-11 12:27:00 Test Item Value Reference Range Interpretation Comments Segs (test code = Segs) 66.4 45.0-75.0 [facility] HospitalDmyvtdwNZURPICZYX6027-27-70 12:27:00 Test Item Value Reference Range Interpretation Comments Eosinophils # (test code 0.3 See_Comment [A utomated message] The = Eosinophils #) system whic h generated this result tra nsmitted reference range : <=0.5. The reference r ondina was not used to int erpret this result as normal/abnormal . [facility] HospitalTnhuibxVXQYTQOOMI0437-80-67 12:27:00 Test Item Value Reference Range Interpretation Comments Basophils (test code = 1.0 See_Comment [Aut omated message] The Basophils) system which ge nerated this result tra nsmitted reference range : <=1.0. The reference r ondina was not used to int erpret this result as normal/abnormal . [facility] HospitalOgjcgxhZFFTQNXVSV9064-68-61 12:27:00 Test Item Value Reference Range Interpretation Comments Eosinophils (test code = 3.9 See_Comment [A utomated message] The Eosinophils) system which ge nerated this result tra nsmitted reference range : <=4.0. The reference r ondina was not used to int erpret this result as normal/abnormal . [facility] HospitalCoryhloCJFOEXXFWKFW2032-15-79 12:27:00 Test Item Value Reference Range Interpretation Comments AGAP (test code = AGAP) 12.7 10.0-20.0 [facility] HospitalNhfqrsoIXNFKNJHUGGF9867-51-51 12:27:00 Test Item Value Reference Range Interpretation Comments Glucose Lvl (test code = Glucose Lvl) 79 70-99 [facility] HospitalJjzsxiuVETZHMHEGGUZ9652-53-94 12:27:00 Test Item Value Reference Range Interpretation Comments Potassium Lvl (test code = Potassium 3.7 3.5-5.1 Lvl) [facility] HospitalFgntialJEFZLPYDORGZ9357-90-30 12:27:00 Test Item Value Reference Range Interpretation Comments Sodium Lvl (test code = Sodium Lvl) 144 135-145 [facility] HospitalPusgkfjBFWUAYVXSCWC2170-39-62 12:27:00 Test Item Value Reference Range Interpretation Comments Chloride Lvl (test code = Chloride Lvl) 109 95-109 [facility] HospitalRncmntmXTXLLESOKYGS6472-68-52 12:27:00 Test Item Value Reference Range Interpretation Comments eGFR (test code = eGFR) 104 [facility] HospitalNrmcynkGETAQEIPEEVG1151-28-25 12:27:00 Test Item Value Reference Range Interpretation Comments Creatinine Lvl (test code = Creatinine 0.68 0.50-1.40 Lvl) [facility] HospitalSobgpafRURBKJOCLRVN6193-93-72 12:27:00 Test Item Value Reference Range Interpretation Comments Calcium Lvl (test code = Calcium Lvl) 8.2 8.5-10.5 [facility] HospitalRrtojnwEDFQSZEHDIGN1004-79-62 12:27:00 Test Item Value Reference Range Interpretation Comments CO2 (test code = CO2) 26 24-32 [facility] HospitalLljjzjhOUYJMBHWRYYP2106-57-83 12:27:00 Test Item Value Reference Range Interpretation Comments BUN (test code = BUN) 9 7-22 [facility] HospitalAiostwyUJOSZBWJQQ7581-93-82 12:27:00 Test Item Value Reference Range Interpretation Comments MPV (test code = MPV) 8.2 7.4-10.4 [facility] HospitalCpnexdnXMAIJMRMYL2836-74-04 12:27:00 Test Item Value Reference Range Interpretation Comments RDW (test code = RDW) 17.6 11.5-14.5 [facility] HospitalCtvnmweKYSWPNJOSB4398-24-60 12:27:00 Test Item Value Reference Range Interpretation Comments Platelet (test code = Platelet) 336 133-450 [facility] HospitalLojwknoGAJNDFGAAI7141-08-84 12:27:00 Test Item Value Reference Range Interpretation Comments MCV (test code = MCV) 80.4 80.0-94.0 [facility] HospitalCunzmxcTRNRGSQUXY7641-17-86 12:27:00 Test Item Value Reference Range Interpretation Comments MCH (test code = MCH) 25.7 pg 27.0-31.0 [facility] HospitalEvjusbxFAIBOODEBT3066-24-01 12:27:00 Test Item Value Reference Range Interpretation Comments MCHC (test code = MCHC) 32.0 32.0-36.0 [facility] HospitalSachzglZFBXSKFDUT4138-28-03 12:27:00 Test Item Value Reference Range Interpretation Comments RBC (test code = RBC) 3.65 4.70-6.10 [facility] HospitalCauwwncPGXXJTVXMS3635-77-00 12:27:00 Test Item Value Reference Range Interpretation Comments WBC (test code = WBC) 6.8 3.7-10.4 [facility] HospitalDtlkxboUIXKVRNPYB8480-26-50 12:27:00 Test Item Value Reference Range Interpretation Comments Hgb (test code = Hgb) 9.4 14.0-18.0 [facility] HospitalMejeauhPJBVEIMGCS4183-44-31 12:27:00 Test Item Value Reference Range Interpretation Comments Hct (test code = Hct) 29.3 42.0-54.0 [facility] HospitalIjitfjrVJKVFINKUB9897-80-18 12:27:00 Test Item Value Reference Range Interpretation Comments Lymphocytes # (test code = Lymphocytes 1.4 1.0-5.5 #) [facility] HospitalJaykaxqPSBHESEAHW6901-98-69 12:27:00 Test Item Value Reference Range Interpretation Comments Monocytes # (test code 0.6 See_Comment [Aut omated message] The = Monocytes #) system which generated this result tra nsmitted reference range : <=0.8. The reference r ondina was not used to int erpret this result as normal/abnormal . [facility] HospitalNzmeduvHIFXNJWBOJ1593-90-71 12:27:00 Test Item Value Reference Range Interpretation Comments Basophils # (test code 0.1 See_Comment [Aut omated message] The = Basophils #) system which generated this result tra nsmitted reference range : <=0.2. The reference r ondina was not used to int erpret this result as normal/abnormal . [facility] HospitalUqchkdqBVHLSKXUOE0280-51-56 12:27:00 Test Item Value Reference Range Interpretation Comments Neutrophils # (test code = Neutrophils 4.5 1.5-8.1 #) [facility] HospitalXbosiowBNONGVVUHH8192-17-23 12:27:00 Test Item Value Reference Range Interpretation Comments Lymphocytes (test code = Lymphocytes) 19.9 20.0-40.0 [facility] HospitalHajyaghDAPPJAUVCC1280-59-77 12:27:00 Test Item Value Reference Range Interpretation Comments Monocytes (test code = Monocytes) 8.8 2.0-12.0 [facility] HospitalAmjgwmqJEZUNPVPDY1916-61-71 12:27:00 Test Item Value Reference Range Interpretation Comments Segs (test code = Segs) 66.4 45.0-75.0 [facility] HospitalAcwhfgpRMFYSSKVUE7683-70-70 12:27:00 Test Item Value Reference Range Interpretation Comments Eosinophils # (test code 0.3 See_Comment [A utomated message] The = Eosinophils #) system whic h generated this result tra nsmitted reference range : <=0.5. The reference r ondina was not used to int erpret this result as normal/abnormal . [facility] HospitalUaklmrtFQQDUGNDBC5323-23-23 12:27:00 Test Item Value Reference Range Interpretation Comments Basophils (test code = 1.0 See_Comment [Aut omated message] The Basophils) system which ge nerated this result tra nsmitted reference range : <=1.0. The reference r ondina was not used to int erpret this result as normal/abnormal . [facility] HospitalAgrpbdlKATXGIIUUQ4923-94-41 12:27:00 Test Item Value Reference Range Interpretation Comments Eosinophils (test code = 3.9 See_Comment [A utomated message] The Eosinophils) system which ge nerated this result tra nsmitted reference range : <=4.0. The reference r ondina was not used to int erpret this result as normal/abnormal . [facility] HospitalTuayjkwDSPTALHUOCHQ3039-02-73 12:27:00 Test Item Value Reference Range Interpretation Comments AGAP (test code = AGAP) 12.7 10.0-20.0 [facility] HospitalDqluiuaBEWDEZRLQMAK5040-95-03 12:27:00 Test Item Value Reference Range Interpretation Comments Glucose Lvl (test code = Glucose Lvl) 79 70-99 [facility] HospitalZpqkdmjFLSPVTTEHNRN7410-46-34 12:27:00 Test Item Value Reference Range Interpretation Comments Potassium Lvl (test code = Potassium 3.7 3.5-5.1 Lvl) [facility] HospitalOfxjlhoTUMKVBDAPDBL4409-16-94 12:27:00 Test Item Value Reference Range Interpretation Comments Sodium Lvl (test code = Sodium Lvl) 144 135-145 [facility] HospitalIdyrbpsKXUGOWWZBCLW0595-96-30 12:27:00 Test Item Value Reference Range Interpretation Comments Chloride Lvl (test code = Chloride Lvl) 109 95-109 [facility] HospitalAaskzcrDFIOTZTPWLUI6496-20-83 12:27:00 Test Item Value Reference Range Interpretation Comments eGFR (test code = eGFR) 104 [facility] HospitalSddfbglYLZLCMOBGOVB2899-30-69 12:27:00 Test Item Value Reference Range Interpretation Comments Creatinine Lvl (test code = Creatinine 0.68 0.50-1.40 Lvl) [facility] HospitalDsmqiilLUAGBTMZNFXZ7197-59-91 12:27:00 Test Item Value Reference Range Interpretation Comments Calcium Lvl (test code = Calcium Lvl) 8.2 8.5-10.5 [facility] HospitalQltkcbdFLFEFDGOVXVB3518-80-01 12:27:00 Test Item Value Reference Range Interpretation Comments CO2 (test code = CO2) 26 24-32 [facility] HospitalSqgrduqRNBBEAWIHYXS1012-65-34 12:27:00 Test Item Value Reference Range Interpretation Comments BUN (test code = BUN) 9 7-22 [facility] HospitalUqisoawIRRDRPWLAI4438-54-12 12:27:00 Test Item Value Reference Range Interpretation Comments MPV (test code = MPV) 8.2 7.4-10.4 [facility] HospitalCxcuvauTDBUAWHBXE9595-32-61 12:27:00 Test Item Value Reference Range Interpretation Comments RDW (test code = RDW) 17.6 11.5-14.5 [facility] HospitalWpsgxljLSYJOGMMRJ7493-64-40 12:27:00 Test Item Value Reference Range Interpretation Comments Platelet (test code = Platelet) 336 133-450 [facility] HospitalLbhchieBEZGAERRZA0038-71-13 12:27:00 Test Item Value Reference Range Interpretation Comments MCV (test code = MCV) 80.4 80.0-94.0 [facility] HospitalVbtohgdIDSXCCIOBY7280-25-96 12:27:00 Test Item Value Reference Range Interpretation Comments MCH (test code = MCH) 25.7 pg 27.0-31.0 [facility] HospitalThwjtltLGALIWGLKI2721-16-09 12:27:00 Test Item Value Reference Range Interpretation Comments MCHC (test code = MCHC) 32.0 32.0-36.0 [facility] HospitalCjxqbmwGMHBGXVDOK6966-36-93 12:27:00 Test Item Value Reference Range Interpretation Comments RBC (test code = RBC) 3.65 4.70-6.10 [facility] HospitalUtcbwitMCQPOYTWTM7923-35-56 12:27:00 Test Item Value Reference Range Interpretation Comments WBC (test code = WBC) 6.8 3.7-10.4 [facility] HospitalImqpivtBADWXQENKA2669-60-19 12:27:00 Test Item Value Reference Range Interpretation Comments Hgb (test code = Hgb) 9.4 14.0-18.0 [facility] HospitalFqggqxbCCWCJNOXBL9531-01-51 12:27:00 Test Item Value Reference Range Interpretation Comments Hct (test code = Hct) 29.3 42.0-54.0 [facility] HospitalWvfrndcNJEYHGKRXB7432-83-04 12:27:00 Test Item Value Reference Range Interpretation Comments Lymphocytes # (test code = Lymphocytes 1.4 1.0-5.5 #) [facility] HospitalKtmrnrzIRMCJTNPLV3038-15-76 12:27:00 Test Item Value Reference Range Interpretation Comments Monocytes # (test code 0.6 See_Comment [Aut omated message] The = Monocytes #) system which generated this result tra nsmitted reference range : <=0.8. The reference r ondina was not used to int erpret this result as normal/abnormal . [facility] HospitalTaijyygYGJMSWLCKC4118-11-33 12:27:00 Test Item Value Reference Range Interpretation Comments Basophils # (test code 0.1 See_Comment [Aut omated message] The = Basophils #) system which generated this result tra nsmitted reference range : <=0.2. The reference r ondina was not used to int erpret this result as normal/abnormal . [facility] HospitalHaijpxnGSDKUAUFHD4785-14-87 12:27:00 Test Item Value Reference Range Interpretation Comments Neutrophils # (test code = Neutrophils 4.5 1.5-8.1 #) [facility] HospitalUgnjgvfQEYMVACYPY7607-21-32 12:27:00 Test Item Value Reference Range Interpretation Comments Lymphocytes (test code = Lymphocytes) 19.9 20.0-40.0 [facility] HospitalPfgqxevUBYYCMQTHF4502-07-50 12:27:00 Test Item Value Reference Range Interpretation Comments Monocytes (test code = Monocytes) 8.8 2.0-12.0 [facility] HospitalEbkzojdATFLPWSRAN4325-42-88 12:27:00 Test Item Value Reference Range Interpretation Comments Segs (test code = Segs) 66.4 45.0-75.0 [facility] HospitalBipnvsgAWQBCZLZDS2141-36-34 12:27:00 Test Item Value Reference Range Interpretation Comments Eosinophils # (test code 0.3 See_Comment [A utomated message] The = Eosinophils #) system whic h generated this result tra nsmitted reference range : <=0.5. The reference r ondina was not used to int erpret this result as normal/abnormal . [facility] HospitalEebqxkiTWCXTWQCPB1528-54-86 12:27:00 Test Item Value Reference Range Interpretation Comments Basophils (test code = 1.0 See_Comment [Aut omated message] The Basophils) system which ge nerated this result tra nsmitted reference range : <=1.0. The reference r ondina was not used to int erpret this result as normal/abnormal . [facility] HospitalVfiigjgKKKEMMWMSI0663-80-14 12:27:00 Test Item Value Reference Range Interpretation Comments Eosinophils (test code = 3.9 See_Comment [A utomated message] The Eosinophils) system which ge nerated this result tra nsmitted reference range : <=4.0. The reference r ondina was not used to int erpret this result as normal/abnormal . [facility]2018-12-19 10:35:00 Test Item Value Reference Range Interpretation Comments Calcium Lvl (test code = Calcium Lvl) 7.8 8.5-10.5 [facility]2018-12-19 10:35:00 Test Item Value Reference Range Interpretation Comments eGFR (test code = eGFR) 112 [facility]2018-12-19 10:35:00 Test Item Value Reference Range Interpretation Comments Creatinine Lvl (test code = Creatinine 0.56 0.50-1.40 Lvl) [facility]2018-12-19 10:35:00 Test Item Value Reference Range Interpretation Comments Phosphorus (test code = Phosphorus) 2.9 2.5-4.5 [facility]2018-12-19 10:35:00 Test Item Value Reference Range Interpretation Comments Glucose Lvl (test code = Glucose Lvl) 89 70-99 [facility]2018-12-19 10:35:00 Test Item Value Reference Range Interpretation Comments CO2 (test code = CO2) 25 24-32 [facility]2018-12-19 10:35:00 Test Item Value Reference Range Interpretation Comments BUN (test code = BUN) 9 7-22 [facility]2018-12-19 10:35:00 Test Item Value Reference Range Interpretation Comments Albumin Lvl (test code = Albumin Lvl) 2.1 3.5-5.0 [facility]2018-12-19 10:35:00 Test Item Value Reference Range Interpretation Comments Chloride Lvl (test code = Chloride Lvl) 111 95-109 [place] 969578-12-19 10:35:00 Test Item Value Reference Range Interpretation Comments Sodium Lvl (test code = Sodium Lvl) 144 135-145 [facility]2018-12-19 10:35:00 Test Item Value Reference Range Interpretation Comments Potassium Lvl (test code = Potassium 3.6 3.5-5.1 Lvl) [facility]2018-12-19 10:35:00 Test Item Value Reference Range Interpretation Comments AGAP (test code = AGAP) 11.6 10.0-20.0 [facility] HospitalQlynqonZAEPELHPNG5866-08-54 10:35:00 Test Item Value Reference Range Interpretation Comments Hgb (test code = Hgb) 9.0 14.0-18.0 [facility] HospitalFivleegJPJABJDFHT8160-82-04 10:35:00 Test Item Value Reference Range Interpretation Comments RBC (test code = RBC) 3.53 4.70-6.10 [facility] HospitalZxntjveUJPVXLCVDW4717-53-93 10:35:00 Test Item Value Reference Range Interpretation Comments MCV (test code = MCV) 81.1 80.0-94.0 [facility] HospitalFjurmefHUSNHZUWFT2568-95-46 10:35:00 Test Item Value Reference Range Interpretation Comments Hct (test code = Hct) 28.6 42.0-54.0 [facility] HospitalQndqgozZOHWPNKMTL1036-76-09 10:35:00 Test Item Value Reference Range Interpretation Comments WBC (test code = WBC) 6.9 3.7-10.4 [facility] HospitalYvbvrqbRBOJJTVFZD7055-55-25 10:35:00 Test Item Value Reference Range Interpretation Comments MPV (test code = MPV) 7.8 7.4-10.4 [facility] HospitalUbhofboHUQZGBLVMS2203-88-96 10:35:00 Test Item Value Reference Range Interpretation Comments Platelet (test code = Platelet) 294 133-450 [facility] HospitalCqnezzcSPPUCNZITC1095-98-42 10:35:00 Test Item Value Reference Range Interpretation Comments RDW (test code = RDW) 17.5 11.5-14.5 [facility] HospitalFcacqcoSVUSBLKRGD0405-31-67 10:35:00 Test Item Value Reference Range Interpretation Comments MCHC (test code = MCHC) 31.7 32.0-36.0 [facility] HospitalSfqrwohXSNOHEOOIC4717-03-62 10:35:00 Test Item Value Reference Range Interpretation Comments MCH (test code = MCH) 25.7 pg 27.0-31.0 [facility] HospitalFofhjmqSMEYSJQWIE9923-20-35 10:35:00 Test Item Value Reference Range Interpretation Comments Lymphocytes (test code = Lymphocytes) 18.5 20.0-40.0 [facility] HospitalCetpfryDIPWKDDCLA5171-92-79 10:35:00 Test Item Value Reference Range Interpretation Comments Segs (test code = Segs) 67.0 45.0-75.0 [facility] HospitalMmlrizbJEHHRKKXQS0144-38-56 10:35:00 Test Item Value Reference Range Interpretation Comments Monocytes (test code = Monocytes) 9.8 2.0-12.0 [facility] HospitalBnukqhvFBAJEOKWHF0151-01-35 10:35:00 Test Item Value Reference Range Interpretation Comments Basophils (test code = 1.0 See_Comment [Aut omated message] The Basophils) system which ge nerated this result tra nsmitted reference range : <=1.0. The reference r ondina was not used to int erpret this result as normal/abnormal . [facility] HospitalTosziwfWWAXTPYTOP2300-46-00 10:35:00 Test Item Value Reference Range Interpretation Comments Eosinophils (test code = 3.7 See_Comment [A utomated message] The Eosinophils) system which ge nerated this result tra nsmitted reference range : <=4.0. The reference r ondina was not used to int erpret this result as normal/abnormal . [facility] HospitalBvqcgmvFMMXWWNMJD5546-87-64 10:35:00 Test Item Value Reference Range Interpretation Comments Monocytes # (test code 0.7 See_Comment [Aut omated message] The = Monocytes #) system which generated this result tra nsmitted reference range : <=0.8. The reference r ondina was not used to int erpret this result as normal/abnormal . [facility] HospitalQvzqcprRMULGRUPZW5180-48-32 10:35:00 Test Item Value Reference Range Interpretation Comments Lymphocytes # (test code = Lymphocytes 1.3 1.0-5.5 #) [facility] HospitalYggqiaiVICRMBESRD7526-46-09 10:35:00 Test Item Value Reference Range Interpretation Comments Neutrophils # (test code = Neutrophils 4.6 1.5-8.1 #) [facility] HospitalMthposyAMZRKIKVCY0675-95-81 10:35:00 Test Item Value Reference Range Interpretation Comments Basophils # (test code 0.1 See_Comment [Aut omated message] The = Basophils #) system which generated this result tra nsmitted reference range : <=0.2. The reference r ondina was not used to int erpret this result as normal/abnormal . [facility] HospitalVueksxeDCMEUNUGEV0605-68-69 10:35:00 Test Item Value Reference Range Interpretation Comments Eosinophils # (test code 0.3 See_Comment [A utomated message] The = Eosinophils #) system whic h generated this result tra nsmitted reference range : <=0.5. The reference r ondina was not used to int erpret this result as normal/abnormal . [place] [address]2018-12-19 10:35:00 Test Item Value Reference Range Interpretation Comments Vanco Tr (test code = Vanco Tr) 21.8 [place] [address]2018-12-19 10:35:00 Test Item Value Reference Range Interpretation Comments Vanco Tr TND (test code = Vanco Tr 0500 1 TND) [facility]2018-12-19 10:35:00 Test Item Value Reference Range Interpretation Comments Calcium Lvl (test code = Calcium Lvl) 7.8 8.5-10.5 [facility]2018-12-19 10:35:00 Test Item Value Reference Range Interpretation Comments eGFR (test code = eGFR) 112 [facility]2018-12-19 10:35:00 Test Item Value Reference Range Interpretation Comments Creatinine Lvl (test code = Creatinine 0.56 0.50-1.40 Lvl) [facility]2018-12-19 10:35:00 Test Item Value Reference Range Interpretation Comments Phosphorus (test code = Phosphorus) 2.9 2.5-4.5 [facility]2018-12-19 10:35:00 Test Item Value Reference Range Interpretation Comments Glucose Lvl (test code = Glucose Lvl) 89 70-99 [facility]2018-12-19 10:35:00 Test Item Value Reference Range Interpretation Comments CO2 (test code = CO2) 25 24-32 [facility]2018-12-19 10:35:00 Test Item Value Reference Range Interpretation Comments BUN (test code = BUN) 9 7-22 [facility]2018-12-19 10:35:00 Test Item Value Reference Range Interpretation Comments Albumin Lvl (test code = Albumin Lvl) 2.1 3.5-5.0 [facility]2018-12-19 10:35:00 Test Item Value Reference Range Interpretation Comments Chloride Lvl (test code = Chloride Lvl) 111 95-109 [facility]2018-12-19 10:35:00 Test Item Value Reference Range Interpretation Comments Sodium Lvl (test code = Sodium Lvl) 144 135-145 [facility]2018-12-19 10:35:00 Test Item Value Reference Range Interpretation Comments Potassium Lvl (test code = Potassium 3.6 3.5-5.1 Lvl) [facility]2018-12-19 10:35:00 Test Item Value Reference Range Interpretation Comments AGAP (test code = AGAP) 11.6 10.0-20.0 [facility] HospitalOljjwzfUDPNYYDSBE1078-84-91 10:35:00 Test Item Value Reference Range Interpretation Comments Hgb (test code = Hgb) 9.0 14.0-18.0 [facility] HospitalKggaxsyBJRADLNRRU2268-49-79 10:35:00 Test Item Value Reference Range Interpretation Comments RBC (test code = RBC) 3.53 4.70-6.10 [facility] HospitalUoggwbxYQMANUTLOO9289-89-73 10:35:00 Test Item Value Reference Range Interpretation Comments MCV (test code = MCV) 81.1 80.0-94.0 [facility] HospitalAeegfukBVNDRYRAUB9834-40-98 10:35:00 Test Item Value Reference Range Interpretation Comments Hct (test code = Hct) 28.6 42.0-54.0 [facility] HospitalMymkgndOWWQSMOYNB5338-57-59 10:35:00 Test Item Value Reference Range Interpretation Comments WBC (test code = WBC) 6.9 3.7-10.4 [facility] HospitalSslxesuHWXDITOCXJ5850-96-70 10:35:00 Test Item Value Reference Range Interpretation Comments MPV (test code = MPV) 7.8 7.4-10.4 [facility] HospitalFvdxlloRNWBVSYDPJ8563-10-90 10:35:00 Test Item Value Reference Range Interpretation Comments Platelet (test code = Platelet) 294 133-450 [facility] HospitalIeqrytxEMRDIQVTLA9816-81-28 10:35:00 Test Item Value Reference Range Interpretation Comments RDW (test code = RDW) 17.5 11.5-14.5 [facility] HospitalAjrwbbrCHLDEOMRKU2234-06-98 10:35:00 Test Item Value Reference Range Interpretation Comments MCHC (test code = MCHC) 31.7 32.0-36.0 [facility] HospitalAqyjcsiKAJUOTLQVB9457-25-92 10:35:00 Test Item Value Reference Range Interpretation Comments MCH (test code = MCH) 25.7 pg 27.0-31.0 [facility] HospitalSpecsdeFDVTICCXRC6494-72-09 10:35:00 Test Item Value Reference Range Interpretation Comments Lymphocytes (test code = Lymphocytes) 18.5 20.0-40.0 [facility] HospitalPkllnakVSNDFDCEHS1089-75-58 10:35:00 Test Item Value Reference Range Interpretation Comments Segs (test code = Segs) 67.0 45.0-75.0 [facility] HospitalIkwfpyrTJIPXHUCEA6893-95-18 10:35:00 Test Item Value Reference Range Interpretation Comments Monocytes (test code = Monocytes) 9.8 2.0-12.0 [facility] HospitalZvqpywiFRDDGJOSFV3034-37-32 10:35:00 Test Item Value Reference Range Interpretation Comments Basophils (test code = 1.0 See_Comment [Aut omated message] The Basophils) system which ge nerated this result tra nsmitted reference range : <=1.0. The reference r ondina was not used to int erpret this result as normal/abnormal . [facility] HospitalQqlacqgDTPXOQKDFI7980-61-41 10:35:00 Test Item Value Reference Range Interpretation Comments Eosinophils (test code = 3.7 See_Comment [A utomated message] The Eosinophils) system which ge nerated this result tra nsmitted reference range : <=4.0. The reference r ondina was not used to int erpret this result as normal/abnormal . [facility] HospitalMtnfuwyDUNKXCNERN3285-79-41 10:35:00 Test Item Value Reference Range Interpretation Comments Monocytes # (test code 0.7 See_Comment [Aut omated message] The = Monocytes #) system which generated this result tra nsmitted reference range : <=0.8. The reference r ondina was not used to int erpret this result as normal/abnormal . [facility] HospitalZkvwoyaCFFLXRKERP9572-62-37 10:35:00 Test Item Value Reference Range Interpretation Comments Lymphocytes # (test code = Lymphocytes 1.3 1.0-5.5 #) [facility] HospitalZgybhjaNJLZNWIQZP2257-66-31 10:35:00 Test Item Value Reference Range Interpretation Comments Neutrophils # (test code = Neutrophils 4.6 1.5-8.1 #) [facility] HospitalAkvknanETQEOCYZNF2840-81-02 10:35:00 Test Item Value Reference Range Interpretation Comments Basophils # (test code 0.1 See_Comment [Aut omated message] The = Basophils #) system which generated this result tra nsmitted reference range : <=0.2. The reference r ondina was not used to int erpret this result as normal/abnormal . [facility] HospitalFjysdefLCWVOKZXZS4302-99-44 10:35:00 Test Item Value Reference Range Interpretation Comments Eosinophils # (test code 0.3 See_Comment [A utomated message] The = Eosinophils #) system whic h generated this result tra nsmitted reference range : <=0.5. The reference r ondina was not used to int erpret this result as normal/abnormal . [place] [address]2018-12-19 10:35:00 Test Item Value Reference Range Interpretation Comments Vanco Tr (test code = Vanco Tr) 21.8 [place] [address]2018-12-19 10:35:00 Test Item Value Reference Range Interpretation Comments Vanco Tr TND (test code = Vanco Tr 0500 1 TND) [facility]2018-12-19 10:35:00 Test Item Value Reference Range Interpretation Comments Calcium Lvl (test code = Calcium Lvl) 7.8 8.5-10.5 [facility]2018-12-19 10:35:00 Test Item Value Reference Range Interpretation Comments eGFR (test code = eGFR) 112 [facility]2018-12-19 10:35:00 Test Item Value Reference Range Interpretation Comments Creatinine Lvl (test code = Creatinine 0.56 0.50-1.40 Lvl) [facility]2018-12-19 10:35:00 Test Item Value Reference Range Interpretation Comments Phosphorus (test code = Phosphorus) 2.9 2.5-4.5 [facility]2018-12-19 10:35:00 Test Item Value Reference Range Interpretation Comments Glucose Lvl (test code = Glucose Lvl) 89 70-99 [facility]2018-12-19 10:35:00 Test Item Value Reference Range Interpretation Comments CO2 (test code = CO2) 25 24-32 [facility]2018-12-19 10:35:00 Test Item Value Reference Range Interpretation Comments BUN (test code = BUN) 9 7-22 [facility]2018-12-19 10:35:00 Test Item Value Reference Range Interpretation Comments Albumin Lvl (test code = Albumin Lvl) 2.1 3.5-5.0 [facility]2018-12-19 10:35:00 Test Item Value Reference Range Interpretation Comments Chloride Lvl (test code = Chloride Lvl) 111 95-109 [facility]2018-12-19 10:35:00 Test Item Value Reference Range Interpretation Comments Sodium Lvl (test code = Sodium Lvl) 144 135-145 [facility]2018-12-19 10:35:00 Test Item Value Reference Range Interpretation Comments Potassium Lvl (test code = Potassium 3.6 3.5-5.1 Lvl) [facility]2018-12-19 10:35:00 Test Item Value Reference Range Interpretation Comments AGAP (test code = AGAP) 11.6 10.0-20.0 [place] [address]98478-12-19 10:35:00 Test Item Value Reference Range Interpretation Comments Hgb (test code = Hgb) 9.0 14.0-18.0 [place] [address]98478-12-19 10:35:00 Test Item Value Reference Range Interpretation Comments RBC (test code = RBC) 3.53 4.70-6.10 [place] [address]98478-12-19 10:35:00 Test Item Value Reference Range Interpretation Comments MCV (test code = MCV) 81.1 80.0-94.0 [place] [address]-12-19 10:35:00 Test Item Value Reference Range Interpretation Comments Hct (test code = Hct) 28.6 42.0-54.0 [place] 098478-12-19 10:35:00 Test Item Value Reference Range Interpretation Comments WBC (test code = WBC) 6.9 3.7-10.4 [place] [address]478-12-19 10:35:00 Test Item Value Reference Range Interpretation Comments MPV (test code = MPV) 7.8 7.4-10.4 [facility] HospitalYgmlpsvHCGHYGYIKU3732-50-68 10:35:00 Test Item Value Reference Range Interpretation Comments Platelet (test code = Platelet) 294 133-450 [facility] HospitalGovzdyxEOVZGVLCHT2504-17-23 10:35:00 Test Item Value Reference Range Interpretation Comments RDW (test code = RDW) 17.5 11.5-14.5 [facility] HospitalUhnkoyfNZSBFFHVSY5764-96-13 10:35:00 Test Item Value Reference Range Interpretation Comments MCHC (test code = MCHC) 31.7 32.0-36.0 [facility] HospitalQlstjedPNVVMDFDOC6261-80-09 10:35:00 Test Item Value Reference Range Interpretation Comments MCH (test code = MCH) 25.7 pg 27.0-31.0 [facility] HospitalTteemdxPKFGNJKNNA2853-95-04 10:35:00 Test Item Value Reference Range Interpretation Comments Lymphocytes (test code = Lymphocytes) 18.5 20.0-40.0 [facility] HospitalJmqzxyjHOMXICEBRT0508-49-05 10:35:00 Test Item Value Reference Range Interpretation Comments Segs (test code = Segs) 67.0 45.0-75.0 [facility] HospitalBgkafvsMNTYRIEXZZ3139-30-68 10:35:00 Test Item Value Reference Range Interpretation Comments Monocytes (test code = Monocytes) 9.8 2.0-12.0 [facility] HospitalBnpibzsJZBVFFOJWZ7728-36-92 10:35:00 Test Item Value Reference Range Interpretation Comments Basophils (test code = 1.0 See_Comment [Aut omated message] The Basophils) system which ge nerated this result tra nsmitted reference range : <=1.0. The reference r ondina was not used to int erpret this result as normal/abnormal . [facility] HospitalPkgsewjGVBHVQFLPA6702-72-14 10:35:00 Test Item Value Reference Range Interpretation Comments Eosinophils (test code = 3.7 See_Comment [A utomated message] The Eosinophils) system which ge nerated this result tra nsmitted reference range : <=4.0. The reference r ondina was not used to int erpret this result as normal/abnormal . [facility] HospitalEhodsjbSQGFVGKKNP9526-42-61 10:35:00 Test Item Value Reference Range Interpretation Comments Monocytes # (test code 0.7 See_Comment [Aut omated message] The = Monocytes #) system which generated this result tra nsmitted reference range : <=0.8. The reference r ondina was not used to int erpret this result as normal/abnormal . [facility] HospitalHpavicaIVXUIXBPWY7269-21-31 10:35:00 Test Item Value Reference Range Interpretation Comments Lymphocytes # (test code = Lymphocytes 1.3 1.0-5.5 #) [facility] HospitalHtlcayrCMGXYETNRG9663-44-42 10:35:00 Test Item Value Reference Range Interpretation Comments Neutrophils # (test code = Neutrophils 4.6 1.5-8.1 #) [facility] HospitalShsdthrKQJVSHLKIJ1638-77-23 10:35:00 Test Item Value Reference Range Interpretation Comments Basophils # (test code 0.1 See_Comment [Aut omated message] The = Basophils #) system which generated this result tra nsmitted reference range : <=0.2. The reference r ondina was not used to int erpret this result as normal/abnormal . [facility] HospitalUdvcyukUIFYPNLGHK2821-00-09 10:35:00 Test Item Value Reference Range Interpretation Comments Eosinophils # (test code 0.3 See_Comment [A utomated message] The = Eosinophils #) system whic h generated this result tra nsmitted reference range : <=0.5. The reference r ondina was not used to int erpret this result as normal/abnormal . [place] [address]-12-19 10:35:00 Test Item Value Reference Range Interpretation Comments Vanco Tr (test code = Vanco Tr) 21.8 [place] [address]-12-19 10:35:00 Test Item Value Reference Range Interpretation Comments Vanco Tr TND (test code = Vanco Tr 0500 1 TND) [facility]VmgifiuZBYBCCHHLNRJ9235-81-11 10:29:00 Test Item Value Reference Range Interpretation Comments AGAP (test code = AGAP) 11.4 10.0-20.0 [facility] HospitalEutvcknXBCUYZUPVARS4310-90-71 10:29:00 Test Item Value Reference Range Interpretation Comments Chloride Lvl (test code = Chloride Lvl) 111 95-109 [facility] HospitalGrohpbkQJJMHCVVUPNY2913-32-26 10:29:00 Test Item Value Reference Range Interpretation Comments Sodium Lvl (test code = Sodium Lvl) 144 135-145 [facility] HospitalRckjpiyXJLPMCBSLBRV7357-01-27 10:29:00 Test Item Value Reference Range Interpretation Comments Potassium Lvl (test code = Potassium 3.4 3.5-5.1 Lvl) [facility] HospitalRgegdcxNOXIIUKLEPXF8526-76-83 10:29:00 Test Item Value Reference Range Interpretation Comments Calcium Lvl (test code = Calcium Lvl) 7.6 8.5-10.5 [facility] HospitalRkxwuazLOJYPLHWXWUA4337-08-10 10:29:00 Test Item Value Reference Range Interpretation Comments Glucose Lvl (test code = Glucose Lvl) 85 70-99 [facility] HospitalHqnuabsLRSMMKEGUHRC7014-66-23 10:29:00 Test Item Value Reference Range Interpretation Comments eGFR (test code = eGFR) 114 [facility] HospitalEwldwqmEVELVKMRUMUV2181-66-82 10:29:00 Test Item Value Reference Range Interpretation Comments Creatinine Lvl (test code = Creatinine 0.54 0.50-1.40 Lvl) [facility] HospitalWtoybeuXKYHKUROWKCM8689-66-76 10:29:00 Test Item Value Reference Range Interpretation Comments BUN (test code = BUN) 8 7-22 [facility] HospitalPuggkeaULIJIDHOEQUH0999-72-45 10:29:00 Test Item Value Reference Range Interpretation Comments CO2 (test code = CO2) 25 24-32 [facility] HospitalJeeguiwGWIXCGOHYD6695-43-41 10:29:00 Test Item Value Reference Range Interpretation Comments Platelet (test code = Platelet) 275 133-450 [facility] HospitalBeeodupIFIENNHSQW6213-03-18 10:29:00 Test Item Value Reference Range Interpretation Comments RDW (test code = RDW) 17.0 11.5-14.5 [facility] HospitalQhdfqjiRLRNHCJTSK3602-37-15 10:29:00 Test Item Value Reference Range Interpretation Comments MCHC (test code = MCHC) 32.4 32.0-36.0 [facility] HospitalCdmyjibHSCWTPVNYV9238-63-15 10:29:00 Test Item Value Reference Range Interpretation Comments MCH (test code = MCH) 26.1 pg 27.0-31.0 [facility] HospitalTcubfgaOHJLDBHKHE5482-75-07 10:29:00 Test Item Value Reference Range Interpretation Comments MCV (test code = MCV) 80.5 80.0-94.0 [facility] HospitalJsewdptSZINWBMZOO2697-68-56 10:29:00 Test Item Value Reference Range Interpretation Comments Hct (test code = Hct) 27.5 42.0-54.0 [facility] HospitalJsnrbocSMZSZRRYJN2291-30-68 10:29:00 Test Item Value Reference Range Interpretation Comments RBC (test code = RBC) 3.42 4.70-6.10 [facility] HospitalIcwylyjYADZYGHVAS4368-18-67 10:29:00 Test Item Value Reference Range Interpretation Comments Hgb (test code = Hgb) 8.9 14.0-18.0 [facility] HospitalRllurplGKDSLYDUOY4791-79-33 10:29:00 Test Item Value Reference Range Interpretation Comments WBC (test code = WBC) 6.9 3.7-10.4 [facility] HospitalGeatletTQZBDTJOCC8726-11-59 10:29:00 Test Item Value Reference Range Interpretation Comments MPV (test code = MPV) 8.0 7.4-10.4 [facility] HospitalPdtewnaAYBKNLFNQQ0816-51-21 10:29:00 Test Item Value Reference Range Interpretation Comments Monocytes # (test code 0.7 See_Comment [Aut omated message] The = Monocytes #) system which generated this result tra nsmitted reference range : <=0.8. The reference r ondina was not used to int erpret this result as normal/abnormal . [facility] HospitalFntnmhhFSLAQSZKRJ4858-56-02 10:29:00 Test Item Value Reference Range Interpretation Comments Lymphocytes # (test code = Lymphocytes 1.6 1.0-5.5 #) [facility] HospitalFkodrafSIFUJQJPYY1999-61-59 10:29:00 Test Item Value Reference Range Interpretation Comments Eosinophils # (test code 0.3 See_Comment [A utomated message] The = Eosinophils #) system ic h generated this result tra nsmitted reference range : <=0.5. The reference r ondina was not used to int erpret this result as normal/abnormal . [facility] HospitalApzhytjCDBNEMJGQF9069-16-50 10:29:00 Test Item Value Reference Range Interpretation Comments Lymphocytes (test code = Lymphocytes) 23.6 20.0-40.0 [facility] HospitalXdiksacSXWTWJQWCS2056-59-16 10:29:00 Test Item Value Reference Range Interpretation Comments Monocytes (test code = Monocytes) 10.1 2.0-12.0 [facility] HospitalErujtwyECKTMWTNYN8297-73-72 10:29:00 Test Item Value Reference Range Interpretation Comments Eosinophils (test code = 3.9 See_Comment [A utomated message] The Eosinophils) system which ge nerated this result tra nsmitted reference range : <=4.0. The reference r ondina was not used to int erpret this result as normal/abnormal . [facility] HospitalTlmniwsTRFTAUVSAI7822-07-60 10:29:00 Test Item Value Reference Range Interpretation Comments Basophils (test code = 0.7 See_Comment [Aut omated message] The Basophils) system which ge nerated this result tra nsmitted reference range : <=1.0. The reference r ondina was not used to int erpret this result as normal/abnormal . [facility] HospitalMvngzaiHWZWQHDGBB3777-06-08 10:29:00 Test Item Value Reference Range Interpretation Comments Neutrophils # (test code = Neutrophils 4.2 1.5-8.1 #) [facility] HospitalCikgkuiKKXNQCKVUQ2492-93-49 10:29:00 Test Item Value Reference Range Interpretation Comments Segs (test code = Segs) 61.7 45.0-75.0 [facility] HospitalAsdtxagDSQICSOUWGXC6394-10-84 10:29:00 Test Item Value Reference Range Interpretation Comments AGAP (test code = AGAP) 11.4 10.0-20.0 [facility] HospitalWboicciITLKCGUFXULU3676-88-47 10:29:00 Test Item Value Reference Range Interpretation Comments Chloride Lvl (test code = Chloride Lvl) 111 95-109 [facility] HospitalOwfdcczRJQLCWCQLWNM6426-51-64 10:29:00 Test Item Value Reference Range Interpretation Comments Sodium Lvl (test code = Sodium Lvl) 144 135-145 [facility] HospitalYhwmgmoTJDUUNGSNXPL4691-11-07 10:29:00 Test Item Value Reference Range Interpretation Comments Potassium Lvl (test code = Potassium 3.4 3.5-5.1 Lvl) [facility] HospitalPsowtylYENLZRMIECOT8937-80-87 10:29:00 Test Item Value Reference Range Interpretation Comments Calcium Lvl (test code = Calcium Lvl) 7.6 8.5-10.5 [facility] HospitalVvnwtbdKBPTWGOIOVKN0204-58-82 10:29:00 Test Item Value Reference Range Interpretation Comments Glucose Lvl (test code = Glucose Lvl) 85 70-99 [facility] HospitalSyyumutGYXLNJQCVYXP1594-10-68 10:29:00 Test Item Value Reference Range Interpretation Comments eGFR (test code = eGFR) 114 [facility] HospitalDivpotxFTRLHUPZJPFG4578-55-09 10:29:00 Test Item Value Reference Range Interpretation Comments Creatinine Lvl (test code = Creatinine 0.54 0.50-1.40 Lvl) [facility] HospitalJikgomcOOGXOGHRABOJ4617-54-73 10:29:00 Test Item Value Reference Range Interpretation Comments BUN (test code = BUN) 8 7-22 [facility] HospitalYyramweMGIRXRAWUCLJ0558-69-71 10:29:00 Test Item Value Reference Range Interpretation Comments CO2 (test code = CO2) 25 24-32 [facility] HospitalSyqhkayINMOMIJMEH0954-03-08 10:29:00 Test Item Value Reference Range Interpretation Comments Platelet (test code = Platelet) 275 133-450 [facility] HospitalAksijylMYTTGBAIKI6038-20-78 10:29:00 Test Item Value Reference Range Interpretation Comments RDW (test code = RDW) 17.0 11.5-14.5 [facility] HospitalDjkmpbpWLBXNWYEWE8078-25-59 10:29:00 Test Item Value Reference Range Interpretation Comments MCHC (test code = MCHC) 32.4 32.0-36.0 [facility] HospitalPpivkgpQRNAPGMSPB7336-21-20 10:29:00 Test Item Value Reference Range Interpretation Comments MCH (test code = MCH) 26.1 pg 27.0-31.0 [facility] HospitalPggswqqKYRZURSGHZ7612-19-57 10:29:00 Test Item Value Reference Range Interpretation Comments MCV (test code = MCV) 80.5 80.0-94.0 [facility] HospitalLfwczcwQJSVUUMNZZ7866-90-12 10:29:00 Test Item Value Reference Range Interpretation Comments Hct (test code = Hct) 27.5 42.0-54.0 [facility] HospitalRyalicrSVDEDIURYX8145-00-19 10:29:00 Test Item Value Reference Range Interpretation Comments RBC (test code = RBC) 3.42 4.70-6.10 [facility] HospitalEnhcvunRWVFSTKVRE0670-47-44 10:29:00 Test Item Value Reference Range Interpretation Comments Hgb (test code = Hgb) 8.9 14.0-18.0 [facility] HospitalEacxoaiNUYUEFNJJB6123-29-00 10:29:00 Test Item Value Reference Range Interpretation Comments WBC (test code = WBC) 6.9 3.7-10.4 [facility] HospitalJxewyjlFXLHOJUXDZ3789-06-74 10:29:00 Test Item Value Reference Range Interpretation Comments MPV (test code = MPV) 8.0 7.4-10.4 [facility] HospitalUtvgwbcDZHSIALGKD6101-82-83 10:29:00 Test Item Value Reference Range Interpretation Comments Monocytes # (test code 0.7 See_Comment [Aut omated message] The = Monocytes #) system which generated this result tra nsmitted reference range : <=0.8. The reference r ondina was not used to int erpret this result as normal/abnormal . [facility] HospitalSszloahARLQEKKDIB6639-96-04 10:29:00 Test Item Value Reference Range Interpretation Comments Lymphocytes # (test code = Lymphocytes 1.6 1.0-5.5 #) [facility] HospitalUxsnblbNULJBEHITK9653-16-55 10:29:00 Test Item Value Reference Range Interpretation Comments Eosinophils # (test code 0.3 See_Comment [A utomated message] The = Eosinophils #) system whic h generated this result tra nsmitted reference range : <=0.5. The reference r ondina was not used to int erpret this result as normal/abnormal . [facility] HospitalOipikapKGHHWRYMUB4875-75-57 10:29:00 Test Item Value Reference Range Interpretation Comments Lymphocytes (test code = Lymphocytes) 23.6 20.0-40.0 [facility] HospitalAoipotiWKUZDZEZFH4566-42-91 10:29:00 Test Item Value Reference Range Interpretation Comments Monocytes (test code = Monocytes) 10.1 2.0-12.0 [facility] HospitalYcpawkdLBKZWCDIDZ4169-46-57 10:29:00 Test Item Value Reference Range Interpretation Comments Eosinophils (test code = 3.9 See_Comment [A utomated message] The Eosinophils) system which ge nerated this result tra nsmitted reference range : <=4.0. The reference r ondina was not used to int erpret this result as normal/abnormal . [facility] HospitalLgtvndfPYTHMLPKQL0888-04-17 10:29:00 Test Item Value Reference Range Interpretation Comments Basophils (test code = 0.7 See_Comment [Aut omated message] The Basophils) system which ge nerated this result tra nsmitted reference range : <=1.0. The reference r ondina was not used to int erpret this result as normal/abnormal . [facility] HospitalQbtabrnWADSTLASWH3981-55-65 10:29:00 Test Item Value Reference Range Interpretation Comments Neutrophils # (test code = Neutrophils 4.2 1.5-8.1 #) [facility] HospitalPxoeshnYDXVVJRGAF2269-84-55 10:29:00 Test Item Value Reference Range Interpretation Comments Segs (test code = Segs) 61.7 45.0-75.0 [facility]KeqwzxgZMPPZZAHSEJA4853-93-32 10:29:00 Test Item Value Reference Range Interpretation Comments AGAP (test code = AGAP) 11.4 10.0-20.0 [facility] HospitalShbdppsRFXJWAUEHSPV0287-49-17 10:29:00 Test Item Value Reference Range Interpretation Comments Chloride Lvl (test code = Chloride Lvl) 111 95-109 [facility] HospitalPzvwiapRBVBYJGTUGXG7249-67-28 10:29:00 Test Item Value Reference Range Interpretation Comments Sodium Lvl (test code = Sodium Lvl) 144 135-145 [facility] HospitalXfryutfAMPBSGKRFEXW1829-52-27 10:29:00 Test Item Value Reference Range Interpretation Comments Potassium Lvl (test code = Potassium 3.4 3.5-5.1 Lvl) [facility] HospitalIjuqugzSRGRHHNHSWQB9628-62-03 10:29:00 Test Item Value Reference Range Interpretation Comments Calcium Lvl (test code = Calcium Lvl) 7.6 8.5-10.5 [facility] HospitalKorfpbiJKVDOOQMNQCE8844-59-96 10:29:00 Test Item Value Reference Range Interpretation Comments Glucose Lvl (test code = Glucose Lvl) 85 70-99 [facility] HospitalJjvvhwbIUHQJAFHLALM5371-45-51 10:29:00 Test Item Value Reference Range Interpretation Comments eGFR (test code = eGFR) 114 [facility] HospitalRmeizzgBOIAQBYWWCZU6900-63-48 10:29:00 Test Item Value Reference Range Interpretation Comments Creatinine Lvl (test code = Creatinine 0.54 0.50-1.40 Lvl) [facility] HospitalVasxkncFSUDRYFPODGG9404-69-19 10:29:00 Test Item Value Reference Range Interpretation Comments BUN (test code = BUN) 8 7-22 [facility] HospitalMezkvlvZREVPHXPRFZT8725-31-45 10:29:00 Test Item Value Reference Range Interpretation Comments CO2 (test code = CO2) 25 24-32 [facility] HospitalOthsnreTVKTKMCJLW8449-70-14 10:29:00 Test Item Value Reference Range Interpretation Comments Platelet (test code = Platelet) 275 133-450 [facility] HospitalOofaoorYSFGGDCTPY6178-73-42 10:29:00 Test Item Value Reference Range Interpretation Comments RDW (test code = RDW) 17.0 11.5-14.5 [facility] HospitalUxiajqbNTHEWXBSXZ9502-12-04 10:29:00 Test Item Value Reference Range Interpretation Comments MCHC (test code = MCHC) 32.4 32.0-36.0 [facility] HospitalDmuilmaJTBDXVWPPM3571-79-58 10:29:00 Test Item Value Reference Range Interpretation Comments MCH (test code = MCH) 26.1 pg 27.0-31.0 [facility] HospitalOwctqbeTKOSKGVKKR8132-29-48 10:29:00 Test Item Value Reference Range Interpretation Comments MCV (test code = MCV) 80.5 80.0-94.0 [facility] HospitalHwarljtEMEQKYWKMZ1520-79-12 10:29:00 Test Item Value Reference Range Interpretation Comments Hct (test code = Hct) 27.5 42.0-54.0 [facility] HospitalErkopiaFPRWYAKPRP2661-15-55 10:29:00 Test Item Value Reference Range Interpretation Comments RBC (test code = RBC) 3.42 4.70-6.10 [facility] HospitalAgltixuHPYWNLRSMH4369-99-39 10:29:00 Test Item Value Reference Range Interpretation Comments Hgb (test code = Hgb) 8.9 14.0-18.0 [facility] HospitalWcnjhupGDYUWHPSTS9313-28-71 10:29:00 Test Item Value Reference Range Interpretation Comments WBC (test code = WBC) 6.9 3.7-10.4 [facility] HospitalHayuwrdWJYQYMFLLL4794-46-93 10:29:00 Test Item Value Reference Range Interpretation Comments MPV (test code = MPV) 8.0 7.4-10.4 [facility] HospitalZhvdwffFOGPOQJSSS3180-10-50 10:29:00 Test Item Value Reference Range Interpretation Comments Monocytes # (test code 0.7 See_Comment [Aut omated message] The = Monocytes #) system which generated this result tra nsmitted reference range : <=0.8. The reference r ondina was not used to int erpret this result as normal/abnormal . [facility] HospitalElgtsmfZZUSFBBZOJ0819-81-38 10:29:00 Test Item Value Reference Range Interpretation Comments Lymphocytes # (test code = Lymphocytes 1.6 1.0-5.5 #) [facility] HospitalWcacycmUFQJIGOMJT1034-34-51 10:29:00 Test Item Value Reference Range Interpretation Comments Eosinophils # (test code 0.3 See_Comment [A utomated message] The = Eosinophils #) system whic h generated this result tra nsmitted reference range : <=0.5. The reference r ondina was not used to int erpret this result as normal/abnormal . [facility] HospitalWsmvbepKYIQBIPZGS3589-63-99 10:29:00 Test Item Value Reference Range Interpretation Comments Lymphocytes (test code = Lymphocytes) 23.6 20.0-40.0 [facility] HospitalKnaepakFXASFFKEYW9141-72-81 10:29:00 Test Item Value Reference Range Interpretation Comments Monocytes (test code = Monocytes) 10.1 2.0-12.0 [facility] HospitalVkpyhctBAOTGRLVUU2000-11-13 10:29:00 Test Item Value Reference Range Interpretation Comments Eosinophils (test code = 3.9 See_Comment [A utomated message] The Eosinophils) system which ge nerated this result tra nsmitted reference range : <=4.0. The reference r ondina was not used to int erpret this result as normal/abnormal . [facility] HospitalYjpvdotMYPQYAABHB3151-53-57 10:29:00 Test Item Value Reference Range Interpretation Comments Basophils (test code = 0.7 See_Comment [Aut omated message] The Basophils) system which ge nerated this result tra nsmitted reference range : <=1.0. The reference r ondina was not used to int erpret this result as normal/abnormal . [facility] HospitalJgdrqlvZNFWIPWWJU2506-75-15 10:29:00 Test Item Value Reference Range Interpretation Comments Neutrophils # (test code = Neutrophils 4.2 1.5-8.1 #) [facility] HospitalOdabzcyUNZGTMWBVY4662-32-11 10:29:00 Test Item Value Reference Range Interpretation Comments Segs (test code = Segs) 61.7 45.0-75.0 [place] 098478-12-16 11:52:00 Test Item Value Reference Range Interpretation Comments Basophils # (test code 0.1 See_Comment [Aut omated message] The = Basophils #) system which generated this result tra nsmitted reference range : <=0.2. The reference r ondina was not used to int erpret this result as normal/abnormal . [facility] HospitalJyrpveyMEIFUNDBWB6842-40-35 11:52:00 Test Item Value Reference Range Interpretation Comments Basophils # (test code 0.1 See_Comment [Aut omated message] The = Basophils #) system which generated this result tra nsmitted reference range : <=0.2. The reference r ondina was not used to int erpret this result as normal/abnormal . [facility]zlhqthTLEMRWWHXK0041-25-[facility] 11:52:00 Test Item Value Reference Range Interpretation Comments Basophils # (test code 0.1 See_Comment [Aut omated message] The = Basophils #) system which generated this result tra nsmitted reference range : <=0.2. The reference r ondina was not used to int erpret this result as normal/abnormal . [facility]BA[facility] - [id number] 23:42:00 Test Item Value Reference Range Interpretation Comments MRSA by PCR (test Negative (02/16/18 5:42 code = MRSA by PCR) PM) [facility]BA[facility] - [id number] 23:42:00 Test Item Value Reference Range Interpretation Comments MRSA by PCR (test Negative (02/16/18 5:42 code = MRSA by PCR) PM) [facility]BA[facility] - [id number] 23:42:00 Test Item Value Reference Range Interpretation Comments MRSA by PCR (test Negative (02/16/18 5:42 code = MRSA by PCR) PM) [facility]UrbqncxWVKYHFYSAP6481-79-49 12:00:00 Test Item Value Reference Range Interpretation Comments Vanco Tr TND (test code = Vanco Tr 0530 1 TND) [facility]JreoueiWHXXHUDNIF2487-10-67 12:00:00 Test Item Value Reference Range Interpretation Comments Vanco Tr (test code = Vanco Tr) 6.7 [facility]landsUefsjbuTWRVXQKHPG5124-89-86 12:00:00 Test Item Value Reference Range Interpretation Comments Vanco Tr TND (test code = Vanco Tr 0530 1 TND) [facility]NncjphcQQQWQNWLOW1313-84-07 12:00:00 Test Item Value Reference Range Interpretation Comments Vanco Tr (test code = Vanco Tr) 6.7 [facility]landsPlcrbhtFDBWCPEKKL7503-76-41 12:00:00 Test Item Value Reference Range Interpretation Comments Vanco Tr TND (test code = Vanco Tr 0530 1 TND) [facility] CenterOxxvkjnCVAUSQNFSD9624-41-32 12:00:00 Test Item Value Reference Range Interpretation Comments Vanco Tr (test code = Vanco Tr) 6.7 [facility] HospitalHixikbgHWWDEEERUI7222-79-65 22:11:00 Test Item Value Reference Range Interpretation Comments PTT (test code = PTT) 38.4 s 22.9-35.8 [facility]HqnklgvHHFJZPTQKI1345-34-88 22:11:00 Test Item Value Reference Range Interpretation Comments PTT (test code = PTT) 38.4 s 22.9-35.8 [facility] CenterFnjiyroDBDCUSZLWV8342-10-78 22:11:00 Test Item Value Reference Range Interpretation Comments PTT (test code = PTT) 38.4 s 22.9-35.8 [facility] Nazpogwhl4025-66-42 22:47:00 Test Item Value Reference Range Interpretation Comments Culture: Anaerobic No Anaerobes Isolated (test code = Culture: Anaerobic) [facility] Stain Qdffbj0939-21-81 22:47:00 Test Item Value Reference Range Interpretation Comments Gram Stain Report Rare WBC's No Organisms (test code = Gram Seen Stain Report) [facility] Aspirate/Body Fluid/Zyoipx7462-20-25 22:47:00 Test Item Value Reference Range Interpretation Comments Culture: Aspirate/Body Fluid/Tissue No Growth (test code = Culture: Aspirate/Body Fluid/Tissue) [facility] Cypztrdwr0075-20-60 22:47:00 Test Item Value Reference Range Interpretation Comments Culture: Anaerobic No Anaerobes Isolated (test code = Culture: Anaerobic) [facility] Stain Jyttdo6924-80-85 22:47:00 Test Item Value Reference Range Interpretation Comments Gram Stain Report Rare WBC's No Organisms (test code = Gram Seen Stain Report) [facility] Aspirate/Body Fluid/Neuxhm8075-19-51 22:47:00 Test Item Value Reference Range Interpretation Comments Culture: Aspirate/Body Fluid/Tissue No Growth (test code = Culture: Aspirate/Body Fluid/Tissue) [facility]: Evkhlusae9616-19-48 22:47:00 Test Item Value Reference Range Interpretation Comments Culture: Anaerobic No Anaerobes Isolated (test code = Culture: Anaerobic) [facility] Stain Qecyhv7727-86-02 22:47:00 Test Item Value Reference Range Interpretation Comments Gram Stain Report Rare WBC's No Organisms (test code = Gram Seen Stain Report) [facility] Aspirate/Body Fluid/Vlnvjf5969-58-88 22:47:00 Test Item Value Reference Range Interpretation Comments Culture: Aspirate/Body Fluid/Tissue No Growth (test code = Culture: Aspirate/Body Fluid/Tissue) [facility]landsCulture: Iivjvoeqr0594-87-70 22:40:00 Test Item Value Reference Range Interpretation Comments Culture: Anaerobic No Anaerobes Isolated (test code = Culture: Anaerobic) [facility] Stain Zrwqlr6578-12-62 22:40:00 Test Item Value Reference Range Interpretation Comments Gram Stain Report Rare WBC's No Organisms (test code = Gram Seen Stain Report) [facility] Aspirate/Body Fluid/Jxtlby2705-91-60 22:40:00 Test Item Value Reference Range Interpretation Comments Culture: Aspirate/Body Fluid/Tissue No Growth (test code = Culture: Aspirate/Body Fluid/Tissue) [facility] Buiycdwbh7940-82-68 22:40:00 Test Item Value Reference Range Interpretation Comments Culture: Anaerobic No Anaerobes Isolated (test code = Culture: Anaerobic) [facility] Stain Wphtfy8827-75-28 22:40:00 Test Item Value Reference Range Interpretation Comments Gram Stain Report Rare WBC's No Organisms (test code = Gram Seen Stain Report) [facility] Aspirate/Body Fluid/Nnmknz6648-34-16 22:40:00 Test Item Value Reference Range Interpretation Comments Culture: Aspirate/Body Fluid/Tissue No Growth (test code = Culture: Aspirate/Body Fluid/Tissue) [facility]: Bierjqzew9788-76-41 22:40:00 Test Item Value Reference Range Interpretation Comments Culture: Anaerobic No Anaerobes Isolated (test code = Culture: Anaerobic) [facility] Stain Hddyyi1991-59-92 22:40:00 Test Item Value Reference Range Interpretation Comments Gram Stain Report Rare WBC's No Organisms (test code = Gram Seen Stain Report) [facility] Aspirate/Body Fluid/Myanok6548-93-97 22:40:00 Test Item Value Reference Range Interpretation Comments Culture: Aspirate/Body Fluid/Tissue No Growth (test code = Culture: Aspirate/Body Fluid/Tissue) [facility] [id number] 09:55:00 Test Item Value Reference Range Interpretation Comments Antibody Scrn (test Negative (02/14/18 code = Antibody Scrn) 3:55 AM) [facility] [id number] 09:55:00 Test Item Value Reference Range Interpretation Comments ABO/Rh (test code = ABO/Rh) A POS [facility] [id number] 09:55:00 Test Item Value Reference Range Interpretation Comments B/C Ratio (test code = B/C Ratio) 14 1 6-25 [facility]landsTransfer [facility] [employer] ([place] [id number] 09:55:00 Test Item Value Reference Range Interpretation Comments Globulin (test code = Globulin) 5.3 2.7-4.2 [facility] [id number] 09:55:00 Test Item Value Reference Range Interpretation Comments A/G Ratio (test code = A/G Ratio) 0.5 1 0.7-1.6 [facility] ([place] [id number] 09:55:00 Test Item Value Reference Range Interpretation Comments Albumin Lvl (test code = Albumin Lvl) 2.8 3.5-5.0 [facility] [id number] 09:55:00 Test Item Value Reference Range Interpretation Comments Alk Phos (test code = Alk Phos) 92 39-136 [facility] TLJOD0976-17-40 09:55:00 Test Item Value Reference Range Interpretation Comments ALT (test code = ALT) 21 See_Comment [Auto mated message] The system which ge nerated this result transmit garrett reference range : <=65. The reference range was not used to interpr et this result as cassie l/abnormal. [facility] MKSGU5929-48-33 09:55:00 Test Item Value Reference Range Interpretation Comments AST (test code = AST) 15 See_Comment [Auto mated message] The system which ge nerated this result transmit garrett reference range : <=37. The reference range was not used to interpr et this result as cassie l/abnormal. [facility] ([place] [id number] 09:55:00 Test Item Value Reference Range Interpretation Comments Total Protein (test code = Total 8.1 6.4-8.4 Protein) [facility] ([place] [id number] 09:55:00 Test Item Value Reference Range Interpretation Comments Bili Total (test code = Bili Total) 0.2 0.2-1.3 [facility]landsEfipobzMFEGHSZQNE3659-64-31 09:55:00 Test Item Value Reference Range Interpretation Comments PTT (test code = PTT) 35.4 s 22.9-35.8 [facility] HospitalWlmqsifJXRUVMHGMU9814-38-86 09:55:00 Test Item Value Reference Range Interpretation Comments PT (test code = PT) 13.4 s 12.0-14.7 [facility] HospitalInqqaerNJZSCXEXDM1652-71-71 09:55:00 Test Item Value Reference Range Interpretation Comments INR (test code = INR) 1.04 1 0.85-1.17 [facility]landsSolulink [id number] 09:55:00 Test Item Value Reference Range Interpretation Comments Antibody Scrn (test Negative (02/14/18 code = Antibody Scrn) 3:55 AM) [facility]landsSol[facility] [id number] 09:55:00 Test Item Value Reference Range Interpretation Comments ABO/Rh (test code = ABO/Rh) A POS [facility] [employer] ([place] [id number] 09:55:00 Test Item Value Reference Range Interpretation Comments B/C Ratio (test code = B/C Ratio) 14 1 6-25 [facility] ([place] [id number] 09:55:00 Test Item Value Reference Range Interpretation Comments Globulin (test code = Globulin) 5.3 2.7-4.2 [facility] ([place] [id number] 09:55:00 Test Item Value Reference Range Interpretation Comments A/G Ratio (test code = A/G Ratio) 0.5 1 0.7-1.6 [facility] ([place] [id number] 09:55:00 Test Item Value Reference Range Interpretation Comments Albumin Lvl (test code = Albumin Lvl) 2.8 3.5-5.0 [facility] ([place] [id number] 09:55:00 Test Item Value Reference Range Interpretation Comments Alk Phos (test code = Alk Phos) 92 39-136 [facility]landsTransfer [facility] Computer System ([place]) [id number] 09:55:00 Test Item Value Reference Range Interpretation Comments ALT (test code = ALT) 21 See_Comment [Auto mated message] The system which ge nerated this result transmit garrett reference range : <=65. The reference range was not used to interpr et this result as cassie l/abnormal. [employer]2018-12-13 09:55:00 Test Item Value Reference Range Interpretation Comments AST (test code = AST) 15 See_Comment [Auto mated message] The system which ge nerated this result transmit garrett reference range : <=37. The reference range was not used to interpr et this result as cassie l/abnormal. [employer] [id number] 09:55:00 Test Item Value Reference Range Interpretation Comments Total Protein (test code = Total 8.1 6.4-8.4 Protein) [employer] [id number] 09:55:00 Test Item Value Reference Range Interpretation Comments Bili Total (test code = Bili Total) 0.2 0.2-1.3 InfluitiveDnygudyWCFWHGMBCN3557-66-13 09:55:00 Test Item Value Reference Range Interpretation Comments PTT (test code = PTT) 35.4 s 22.9-35.[address] [facility] EkhwimpTVDZPEFBYJ6427-96-40 09:55:00 Test Item Value Reference Range Interpretation Comments PT (test code = PT) 13.4 s 12.0-14.[address] [facility] GcgeyloTLDYEQBREI6182-94-32 09:55:00 Test Item Value Reference Range Interpretation Comments INR (test code = INR) 1.04 1 0.85-1.17 [employer] [id number] 09:55:00 Test Item Value Reference Range Interpretation Comments Antibody Scrn (test Negative (02/14/18 code = Antibody Scrn) 3:55 AM) [employer] [id number] 09:55:00 Test Item Value Reference Range Interpretation Comments ABO/Rh (test code = ABO/Rh) A POS [employer]2018-12-13 09:55:00 Test Item Value Reference Range Interpretation Comments B/C Ratio (test code = B/C Ratio) 14 1 6-25 [employer]2018-12-13 09:55:00 Test Item Value Reference Range Interpretation Comments Globulin (test code = Globulin) 5.3 2.7-4.2 [employer]2018-12-13 09:55:00 Test Item Value Reference Range Interpretation Comments A/G Ratio (test code = A/G Ratio) 0.5 1 0.7-1.[address]12-13 09:55:00 Test Item Value Reference Range Interpretation Comments Albumin Lvl (test code = Albumin Lvl) 2.8 3.5-5.0 [place] [address]-12-13 09:55:00 Test Item Value Reference Range Interpretation Comments Alk Phos (test code = Alk Phos) 92 39-136 [place] 969578-12-13 09:55:00 Test Item Value Reference Range Interpretation Comments ALT (test code = ALT) 21 See_Comment [Auto mated message] The system which ge nerated this result transmit garrett reference range : <=65. The reference range was not used to interpr et this result as cassie l/abnormal. [place] [address]-12-13 09:55:00 Test Item Value Reference Range Interpretation Comments AST (test code = AST) 15 See_Comment [Auto mated message] The system which ge nerated this result transmit garrett reference range : <=37. The reference range was not used to interpr et this result as cassie l/abnormal. [place] [id number] 09:55:00 Test Item Value Reference Range Interpretation Comments Total Protein (test code = Total 8.1 6.4-8.4 Protein) [place] 969578-12-13 09:55:00 Test Item Value Reference Range Interpretation Comments Bili Total (test code = Bili Total) 0.2 0.2-1.3 [place] [address]-12-13 09:55:00 Test Item Value Reference Range Interpretation Comments PTT (test code = PTT) 35.4 s 22.9-35.8 [place] [address]-12-13 09:55:00 Test Item Value Reference Range Interpretation Comments PT (test code = PT) 13.4 s 12.0-14.[address]12-13 09:55:00 Test Item Value Reference Range Interpretation Comments INR (test code = INR) 1.04 1 0.85-1.[address]12-13 03:06:00 Test Item Value Reference Range Interpretation Comments Lactic Acid Lvl (test code = Lactic 1.3 0.5-2.2 Acid Lvl) [address]12-13 03:06:00 Test Item Value Reference Range Interpretation Comments Sed Rate (test code = 60 See_Comment [Auto mated message] The Sed Rate) system which ge nerated this result transmit garrett reference range : <=15. The reference range was not used to interpr et this result as cassie l/abnormal. [facility] [id number] 03:06:00 Test Item Value Reference Range Interpretation Comments Lactic Acid Lvl (test code = Lactic 1.3 0.5-2.2 Acid Lvl) [facility] HospitalRbkdcoqKSBDJDAUWR1047-68-52 03:06:00 Test Item Value Reference Range Interpretation Comments Sed Rate (test code = 60 See_Comment [Auto mated message] The Sed Rate) system which ge nerated this result transmit garrett reference range : <=15. The reference range was not used to interpr et this result as cassie l/abnormal. [facility] [id number] 03:06:00 Test Item Value Reference Range Interpretation Comments Lactic Acid Lvl (test code = Lactic 1.3 0.5-2.2 Acid Lvl) [facility] HospitalYtjncvnBXZWOZJTVJ4153-68-45 03:06:00 Test Item Value Reference Range Interpretation Comments Sed Rate (test code = 60 See_Comment [Auto mated message] The Sed Rate) system which ge nerated this result transmit garrett reference range : <=15. The reference range was not used to interpr et this result as cassie l/abnormal. [facility] [id number] 01:24:00 Test Item Value Reference Range Interpretation Comments RBC product (test code Product available = RBC product) 4(02/13/18 7:24 PM) [facility] BANK [id number] 01:24:00 Test Item Value Reference Range Interpretation Comments RBC product (test code Product available = RBC product) 4(02/13/18 7:24 PM) [facility] BANK [id number] 01:24:00 Test Item Value Reference Range Interpretation Comments RBC product (test code Product available = RBC product) 4(02/13/18 7:24 PM) [facility] AND [id number] 01:00:00 Test Item Value Reference Range Interpretation Comments UA Hyal Cast (test 4 See_Comment [Automat ed message] The code = UA Hyal Cast) system which generated this result transmit garrett reference range : <=2. The reference range was not used to interpr et this result as cassie l/abnormal. [facility] AND [id number] 01:00:00 Test Item Value Reference Range Interpretation Comments UA Mucus (test code = UA Mucus) Many /LPF [facility] AND [id number] 01:00:00 Test Item Value Reference Range Interpretation Comments UA WBC (test code = 1 See_Comment [Automa garrett message] The UA WBC) system which ge nerated this result transmit garrett reference range : <=5. The reference range was not used to interpr et this result as cassie l/abnormal. [facility] AND [id number] 01:00:00 Test Item Value Reference Range Interpretation Comments UA Protein (test code Negative (02/13/18 7:00 = UA Protein) PM) [facility] AND [id number] 01:00:00 Test Item Value Reference Range Interpretation Comments UA Spec Grav (test code = UA Spec 1.013 1 Grav) [facility] AND [id number] 01:00:00 Test Item Value Reference Range Interpretation Comments UA pH (test code = UA pH) 6.0 1 5.0-8.0 [facility] AND [id number] 01:00:00 Test Item Value Reference Range Interpretation Comments UA Nitrite (test code Negative (02/13/18 7:00 = UA Nitrite) PM) [facility] AND [id number] 01:00:00 Test Item Value Reference Range Interpretation Comments UA Blood (test code = Negative (02/13/18 7:00 UA Blood) PM) [facility] AND [id number] 01:00:00 Test Item Value Reference Range Interpretation Comments UA Bili (test code = Negative *NA*(02/13/18 UA Bili) 7:00 PM) [facility] AND [id number] 01:00:00 Test Item Value Reference Range Interpretation Comments UA Ketones (test code = UA Ketones) Negative [facility] AND [id number] 01:00:00 Test Item Value Reference Range Interpretation Comments UA Glucose (test code Negative *NA*(02/13/18 = UA Glucose) 7:00 PM) [facility] AND [id number] 01:00:00 Test Item Value Reference Range Interpretation Comments UA Sq Epi (test code = UA Sq Occasional /LPF Epi) [facility] AND [id number] 01:00:00 Test Item Value Reference Range Interpretation Comments UA Leuk Est (test Negative (02/13/18 7:00 code = UA Leuk Est) PM) [facility] AND [id number] 01:00:00 Test Item Value Reference Range Interpretation Comments UA Urobilinogen (test code = UA <=1.0 mg/dL 0.1-1.0 Urobilinogen) [facility] AND [id number] 01:00:00 Test Item Value Reference Range Interpretation Comments UA Color (test code = Yellow *NA*(02/13/18 UA Color) 7:00 PM) [facility] AND [id number] 01:00:00 Test Item Value Reference Range Interpretation Comments UA Turbidity (test code = Clear (02/13/18 7:00 UA Turbidity) PM) [facility] AND [id number] 01:00:00 Test Item Value Reference Range Interpretation Comments UA Hyal Cast (test 4 See_Comment [Automat ed message] The code = UA Hyal Cast) system which generated this result transmit garrett reference range : <=2. The reference range was not used to interpr et this result as cassie l/abnormal. [facility] AND [id number] 01:00:00 Test Item Value Reference Range Interpretation Comments UA Mucus (test code = UA Mucus) Many /LPF [facility] AND [id number] 01:00:00 Test Item Value Reference Range Interpretation Comments UA WBC (test code = 1 See_Comment [Automa garrett message] The UA WBC) system which ge nerated this result transmit garrett reference range : <=5. The reference range was not used to interpr et this result as cassie l/abnormal. [facility] AND [id number] 01:00:00 Test Item Value Reference Range Interpretation Comments UA Protein (test code Negative (02/13/18 7:00 = UA Protein) PM) [facility] AND [id number] 01:00:00 Test Item Value Reference Range Interpretation Comments UA Spec Grav (test code = UA Spec 1.013 1 Grav) [facility] AND [id number] 01:00:00 Test Item Value Reference Range Interpretation Comments UA pH (test code = UA pH) 6.0 1 5.0-8.0 [facility] AND [id number] 01:00:00 Test Item Value Reference Range Interpretation Comments UA Nitrite (test code Negative (02/13/18 7:00 = UA Nitrite) PM) [facility] AND [id number] 01:00:00 Test Item Value Reference Range Interpretation Comments UA Blood (test code = Negative (02/13/18 7:00 UA Blood) PM) [facility] AND [id number] 01:00:00 Test Item Value Reference Range Interpretation Comments UA Bili (test code = Negative *NA*(02/13/18 UA Bili) 7:00 PM) [facility] AND [id number] 01:00:00 Test Item Value Reference Range Interpretation Comments UA Ketones (test code = UA Ketones) Negative [facility] AND [id number] 01:00:00 Test Item Value Reference Range Interpretation Comments UA Glucose (test code Negative *NA*(02/13/18 = UA Glucose) 7:00 PM) [facility] AND [id number] 01:00:00 Test Item Value Reference Range Interpretation Comments UA Sq Epi (test code = UA Sq Occasional /LPF Epi) [facility] AND [id number] 01:00:00 Test Item Value Reference Range Interpretation Comments UA Leuk Est (test Negative (02/13/18 7:00 code = UA Leuk Est) PM) [facility] AND [id number] 01:00:00 Test Item Value Reference Range Interpretation Comments UA Urobilinogen (test code = UA <=1.0 mg/dL 0.1-1.0 Urobilinogen) [facility] AND [id number] 01:00:00 Test Item Value Reference Range Interpretation Comments UA Color (test code = Yellow *NA*(02/13/18 UA Color) 7:00 PM) [facility] AND [id number] 01:00:00 Test Item Value Reference Range Interpretation Comments UA Turbidity (test code = Clear (02/13/18 7:00 UA Turbidity) PM) [facility] AND [id number] 01:00:00 Test Item Value Reference Range Interpretation Comments UA Hyal Cast (test 4 See_Comment [Automat ed message] The code = UA Hyal Cast) system which generated this result transmit garrett reference range : <=2. The reference range was not used to interpr et this result as cassie l/abnormal. [facility] AND [id number] 01:00:00 Test Item Value Reference Range Interpretation Comments UA Mucus (test code = UA Mucus) Many /LPF [facility] AND [id number] 01:00:00 Test Item Value Reference Range Interpretation Comments UA WBC (test code = 1 See_Comment [Automa garrett message] The UA WBC) system which ge nerated this result transmit garrett reference range : <=5. The reference range was not used to interpr et this result as cassie l/abnormal. [facility] AND [id number] 01:00:00 Test Item Value Reference Range Interpretation Comments UA Protein (test code Negative (02/13/18 7:00 = UA Protein) PM) [facility] AND [id number] 01:00:00 Test Item Value Reference Range Interpretation Comments UA Spec Grav (test code = UA Spec 1.013 1 Grav) [facility] AND [id number] 01:00:00 Test Item Value Reference Range Interpretation Comments UA pH (test code = UA pH) 6.0 1 5.0-8.0 [facility] AND [id number] 01:00:00 Test Item Value Reference Range Interpretation Comments UA Nitrite (test code Negative (02/13/18 7:00 = UA Nitrite) PM) [facility] AND [id number] 01:00:00 Test Item Value Reference Range Interpretation Comments UA Blood (test code = Negative (02/13/18 7:00 UA Blood) PM) [facility] AND [id number] 01:00:00 Test Item Value Reference Range Interpretation Comments UA Bili (test code = Negative *NA*(02/13/18 UA Bili) 7:00 PM) [facility] AND [id number] 01:00:00 Test Item Value Reference Range Interpretation Comments UA Ketones (test code = UA Ketones) Negative [facility] AND [id number] 01:00:00 Test Item Value Reference Range Interpretation Comments UA Glucose (test code Negative *NA*(02/13/18 = UA Glucose) 7:00 PM) [facility] AND [id number] 01:00:00 Test Item Value Reference Range Interpretation Comments UA Sq Epi (test code = UA Sq Occasional /LPF Epi) [facility] AND [id number] 01:00:00 Test Item Value Reference Range Interpretation Comments UA Leuk Est (test Negative (02/13/18 7:00 code = UA Leuk Est) PM) [facility] AND [id number] 01:00:00 Test Item Value Reference Range Interpretation Comments UA Urobilinogen (test code = UA <=1.0 mg/dL 0.1-1.0 Urobilinogen) [facility] AND [id number] 01:00:00 Test Item Value Reference Range Interpretation Comments UA Color (test code = Yellow *NA*(02/13/18 UA Color) 7:00 PM) [facility] AND [id number] 01:00:00 Test Item Value Reference Range Interpretation Comments UA Turbidity (test code = Clear (02/13/18 7:00 UA Turbidity) PM) [facility] [id number] 22:30:00 Test Item Value Reference Range Interpretation Comments Total CK (test code = Total CK) 26 12-191 [facility] [id number] 22:30:00 Test Item Value Reference Range Interpretation Comments BNP (test code = BNP) 81 [facility] [id number] 22:30:00 Test Item Value Reference Range Interpretation Comments Troponin-I (test code no gt See_Comment [Auto mated message] The = Troponin-I) system which g enerated this result transmit garrett reference range : <=0.40. The reference r ondina was not used to interpr et this result as cassie l/abnormal. [facility] [employer] [id number] 22:30:00 Test Item Value Reference Range Interpretation Comments Lactic Acid Lvl (test code = Lactic 2.1 0.5-2.2 Acid Lvl) [facility]2018-12-12 22:30:00 Test Item Value Reference Range Interpretation Comments B/C Ratio (test code = B/C Ratio) 10 1 6-25 [place] [id number] 22:30:00 Test Item Value Reference Range Interpretation Comments Globulin (test code = Globulin) 4.7 2.7-4.2 [facility]2018-12-12 22:30:00 Test Item Value Reference Range Interpretation Comments A/G Ratio (test code = A/G Ratio) 0.6 1 0.7-1.6 [facility]2018-12-12 22:30:00 Test Item Value Reference Range Interpretation Comments Total Protein (test code = Total 7.6 6.4-8.4 Protein) [facility]2018-12-12 22:30:00 Test Item Value Reference Range Interpretation Comments Bili Total (test code = Bili Total) 0.4 0.2-1.3 [facility]2018-12-12 22:30:00 Test Item Value Reference Range Interpretation Comments AST (test code = AST) 13 See_Comment [Auto mated message] The system which ge nerated this result transmit garrett reference range : <=37. The reference range was not used to interpr et this result as cassie l/abnormal. [facility]2018-12-12 22:30:00 Test Item Value Reference Range Interpretation Comments Alk Phos (test code = Alk Phos) 95 39-136 [facility]2018-12-12 22:30:00 Test Item Value Reference Range Interpretation Comments ALT (test code = ALT) 18 See_Comment [Auto mated message] The system which ge nerated this result transmit garrett reference range : <=65. The reference range was not used to interpr et this result as cassie l/abnormal. [facility]2018-12-12 22:30:00 Test Item Value Reference Range Interpretation Comments Albumin Lvl (test code = Albumin Lvl) 2.9 3.5-5.0 [id number] 22:30:00 Test Item Value Reference Range Interpretation Comments D-Dimer (test code = D-Dimer) 0.55 [id number] 22:30:00 Test Item Value Reference Range Interpretation Comments C-REACTIVE PROTEIN (test code = 48.5 C-REACTIVE PROTEIN) [facility] [employer]2018-12-12 22:30:00 Test Item Value Reference Range Interpretation Comments Total CK (test code = Total CK) 26 12-191 [facility] [id number] 22:30:00 Test Item Value Reference Range Interpretation Comments BNP (test code = BNP) 81 [facility] [id number] 22:30:00 Test Item Value Reference Range Interpretation Comments Troponin-I (test code no gt See_Comment [Auto mated message] The = Troponin-I) system which g enerated this result transmit garrett reference range : <=0.40. The reference r ondina was not used to interpr et this result as cassie l/abnormal. [facility] [employer]2018-12-12 22:30:00 Test Item Value Reference Range Interpretation Comments Lactic Acid Lvl (test code = Lactic 2.1 0.5-2.2 Acid Lvl) [facility] [employer]2018-12-12 22:30:00 Test Item Value Reference Range Interpretation Comments B/C Ratio (test code = B/C Ratio) 10 1 6-[address] [facility] [employer]2018-12-12 22:30:00 Test Item Value Reference Range Interpretation Comments Globulin (test code = Globulin) 4.7 2.7-4.[address] [facility] [employer]2018-12-12 22:30:00 Test Item Value Reference Range Interpretation Comments A/G Ratio (test code = A/G Ratio) 0.6 1 0.7-1.[address] [facility] [employer]2018-12-12 22:30:00 Test Item Value Reference Range Interpretation Comments Total Protein (test code = Total 7.6 6.4-8.4 Protein) [facility] [employer]2018-12-12 22:30:00 Test Item Value Reference Range Interpretation Comments Bili Total (test code = Bili Total) 0.4 0.2-1.[address] [facility] [employer]2018-12-12 22:30:00 Test Item Value Reference Range Interpretation Comments AST (test code = AST) 13 See_Comment [Auto mated message] The system which ge nerated this result transmit garrett reference range : <=37. The reference range was not used to interpr et this result as cassie l/abnormal. [employer] [id number] 22:30:00 Test Item Value Reference Range Interpretation Comments Alk Phos (test code = Alk Phos) 95 39-[address] [facility] [employer] [id number] 22:30:00 Test Item Value Reference Range Interpretation Comments ALT (test code = ALT) 18 See_Comment [Auto mated message] The system which ge nerated this result transmit garrett reference range : <=65. The reference range was not used to interpr et this result as cassie l/abnormal. [employer] [id number] 22:30:00 Test Item Value Reference Range Interpretation Comments Albumin Lvl (test code = Albumin Lvl) 2.9 3.5-5.[address] [facility] [id number] 22:30:00 Test Item Value Reference Range Interpretation Comments D-Dimer (test code = D-Dimer) 0.[address] [facility] [id number] 22:30:00 Test Item Value Reference Range Interpretation Comments C-REACTIVE PROTEIN (test code = 48.5 C-REACTIVE PROTEIN) [facility] [employer] [id number] 22:30:00 Test Item Value Reference Range Interpretation Comments Total CK (test code = Total CK) 26 12-[address] [facility] [employer] [id number] 22:30:00 Test Item Value Reference Range Interpretation Comments BNP (test code = BNP) [address] [facility] [employer]2018-12-12 22:30:00 Test Item Value Reference Range Interpretation Comments Troponin-I (test code no gt See_Comment [Auto mated message] The = Troponin-I) system which g enerated this result transmit garrett reference range : <=0.40. The reference r ondina was not used to interpr et this result as cassie l/abnormal. [employer] [id number] 22:30:00 Test Item Value Reference Range Interpretation Comments Lactic Acid Lvl (test code = Lactic 2.1 0.5-2.2 Acid Lvl) [facility] [employer]2018-12-12 22:30:00 Test Item Value Reference Range Interpretation Comments B/C Ratio (test code = B/C Ratio) 10 1 6-[address] [facility] [employer] [id number] 22:30:00 Test Item Value Reference Range Interpretation Comments Globulin (test code = Globulin) 4.7 2.7-4.2 [facility]2018-12-12 22:30:00 Test Item Value Reference Range Interpretation Comments A/G Ratio (test code = A/G Ratio) 0.6 1 0.7-1.6 [facility]2018-12-12 22:30:00 Test Item Value Reference Range Interpretation Comments Total Protein (test code = Total 7.6 6.4-8.4 Protein) [facility]2018-12-12 22:30:00 Test Item Value Reference Range Interpretation Comments Bili Total (test code = Bili Total) 0.4 0.2-1.3 [facility]2018-12-12 22:30:00 Test Item Value Reference Range Interpretation Comments AST (test code = AST) 13 See_Comment [Auto mated message] The system which ge nerated this result transmit garrett reference range : <=37. The reference range was not used to interpr et this result as cassie l/abnormal. [facility]2018-12-12 22:30:00 Test Item Value Reference Range Interpretation Comments Alk Phos (test code = Alk Phos) 95 39-136 [facility]2018-12-12 22:30:00 Test Item Value Reference Range Interpretation Comments ALT (test code = ALT) 18 See_Comment [Auto mated message] The system which ge nerated this result transmit garrett reference range : <=65. The reference range was not used to interpr et this result as cassie l/abnormal. [facility]2018-12-12 22:30:00 Test Item Value Reference Range Interpretation Comments Albumin Lvl (test code = Albumin Lvl) 2.9 3.5-5.0 [id number] 22:30:00 Test Item Value Reference Range Interpretation Comments D-Dimer (test code = D-Dimer) 0.55 [id number] 22:30:00 Test Item Value Reference Range Interpretation Comments C-REACTIVE PROTEIN (test code = 48.5 C-REACTIVE PROTEIN) [facility] Notes Date/Time Note Provider Source 2022-06-25 [facility] 11:01:00-00:00 [facility] Cardiology Progress Note REPORT#:[id number] REPORT STATUS: Signed DATE:06/25/22 TIME:1101 PATIENT: PATITO LUNA UNIT #: [id number] ROOM/BED: 306-1 : 57 AGE: 66 SEX: M ATTEND: Yumiko Red MD ADM AUTHOR: Neno Augustin MD * ALL edits or amendments must be made on the [employer]/computer document * Subjective HPI: 66-year-old gentleman with significant PMH PSH and comorbidties including premature CAD s/p CABG x 4 in 2018 who experienced severe cp / angina sob diaphoresis upper epigastric pain. H e states his symptoms started around 5 PM and he woke up and drenched with sweat. This incident occurred again at 11 PM. He also complains of moderate, achy, sharp epigastric pain. He states this sensation is similar to his cardiac issues. Serial EKG's suggested acute STEMI involving the inferior distribution. Code STEMI was activated Free Text Subj Notes Free Text Subj Notes: NO recurrent angina Objective General VS/I O: 24 hour I O ending at 0700: 06/25 0700 06/24 1900 Intake Total 1250.00 450.00 Output Total 400 300 Balance 850.00 150.00 Intake, IV 1200.00 200.00 Intake, Oral 50 250 Number 0 Bowel Movements Number Voids 3 Output, Stool 0 Output, Urine 400 300 Vital Signs: Date Time Temp Pulse Resp B/P B/P Pulse O2 O2 F low FiO2 Mean Ox Delivery Rate 06/25 0900 79 96 06/25 0800 60 119/62 85 95 06/25 0747 36.5 06/25 0705 94 Room air 06/25 0700 63 139/64 92 97 06/25 0600 58 135/68 96 95 06/25 0530 68 119/63 85 93 06/25 0400 36.8 06/25 0400 72 125/67 90 94 06/25 0330 72 101/58 74 93 06/25 0300 65 137/60 87 94 06/25 0200 76 89/56 66 94 06/25 0100 79 116/59 80 92 06/25 0000 36.8 80 14 120/66 84 06/25 0000 80 120/66 86 94 06/24 2300 90 109/57 78 93 06/24 2200 93 83/52 63 95 06/24 2130 89 101/54 73 95 06/24 2100 82 129/58 84 93 06/25 1999 36.4 84 15 104/52 69 96 06/25 1999 84 104/52 75 91 06/24 1944 97 Room air 21 06/24 1915 94 105/56 73 93 06/24 1820 37.2 15 06/24 1800 93 114/65 83 93 06/24 1700 100 127/82 97 93 06/24 1600 90 116/71 89 93 06/24 1402 65 16 115/59 83 95 06/24 1300 85 18 99/56 75 96 06/24 1201 101 29 125/103 111 97 PATIENT WEIGHT: Weight (lb): Weight (oz): Weight (kg): 77.273 Medications: Active Meds + DC'd Last 24 Hrs Atorvastatin Calcium (LIPITOR) 80 MG DAILY 1700 PO Sodium Chloride (0.9% Sodium Chloride) 1,000 ML .Q10H IV Aspirin (ECOTRIN) 81 MG DAILY PO Carvedilol (COREG) 6.25 MG Q12HR PO Clopidogrel Bisulfate (Plavix) 75 MG DAILY PO Isosorbide Mononitrate (IMDUR) 60 MG DAILY PO Mupirocin (BACTROBAN NASAL-ADULT ICU/ISSA MRSA PATIENTS) 1 APPLIC 0900,1700 NASAL Physical Exam General appearance: alert, awake, oriented, no a cute distress, pleasant, conversational, mental status normal, no respira tory distress Head/Eyes: atraumatic, EOMI, normocephalic, PERR LA ENT: moist mucosal membranes Neck: carotid bruit, JVD present, full range of motion, non-tender Cardiovascular: CV assessment: abnormal S1/S2, ectopy, gallop, S3 present, S4 present Murmur assessment: I/ HSM Respiratory: crackles, rales, shortness of breat h Abdomen: no distention, no mass/organomegaly, no pulsatile mass, no rebound Lower extremity: LE assessment: edema, abnormal peripheral pulse Neuro/HOSPITAL MEDICINE DIRECTOR: alert, oriented X 3, normal speech, n o motor deficits Diagnosis, Assessment Plan Consultants: cardiology Free Text DxA P Notes Free Text DxA P Notes: ASSESSMENT: Acute STEMI - inferior distribution - s/p succes sful primary PCI with PTCA of [place] RCA and DEStenting of the SVG to the RPDA Acute on chronic systolic and diastolic congesti ve heart failure - HFrEF 45% Coronary atherosclerotic disease - s/p CABG x 4 in 2018 Ischemic cardiomyopathy Metabolic syndrome with HHD dyslipdemia insulin resistance PLAN: Otimize cardiac medical management s/p successfu l primary PCI with PTCA of [place] RCA and DEStenting of the SVG to the RPDA Continue DAPT Discharge planning Staged PCI of the LAD can be pusued subsequently pending clinical course as outpatient Electronically Signed by Neno Augustin MD on at 1103 RPT #: [id number] END OF REPORT 2022-06-25 [facility] 09:54:00-00:00 [facility] ([facility]) Hospitalist Discharge Summary REPORT#:[id number] REPORT STATUS: Signed DATE:06/25/22 TIME:953 PATIENT: PATITO LUNA UNIT #: [id number] ROOM/BED: [place] [id number] : 57 AGE: 66 SEX: M ATTEND: Yumiko Red MD ADM AUTHOR: Jamal Red MD * ALL edits or amendments must be made on the el [employer]/computer document * General Information Discharge date: 06/25/22 Discharge diagnosis: Acute STEMI (ST elevation myocardial infarction) Status post [facility] , S/p PCI PCI with PTCA of [place] RCA and DEStenti ng of the SVG to the RPDA by Dr Augustin on 06/24/22 CAD with quadrupple CABG 2018 Acute on chronic systolic and diastolic congesti ve heart failure Ischemic cardiomyopathy Coronary atherosclerotic disease - s/p CABG x 4 in 2018 Metabolic syndrome with HHD dyslipdemia insulin resistance JOAN(acute kidney injury) Hospital course: 66-year-old male with history of CAD with quadru ple bypass 2018 who presented to the ED with diaphoresis and upper epi gastric pain/chest discomfort. Patient reports that his neighbour had noticed a bout 2 days ago that he wasn't looking well and mentioned to him. But his sympt oms started around 5 PM yesterday when he woke up and drenched with sweat. This inciden t occurred again at 11 PM. He also complains of moderate, achy, sharp epigastr ic pain. He states this sensation is similar to his cardiac issues. Denies any fever, chills, shortness of breath, nausea or vomiting. Brought in by EMS with concerns for STEMI. Serial EKG's suggested acute STEMI involving the inferior distribution. Code STEMI was activated and he was taken to the [facility] and Dr. Augustin perfomed heart cath with PCI with PTCA of [place] RCA and DEStenting of the SVG to the RPDA by Dr Augustin on 06/24/22 Patient was monitored on telemetry and continued on our antiplatelet therapy with pain medications and home medicatio ns titrated. Patient responded well to treatment and is being discharged home today in a stable condition with and advised to follow-up with PC P in 1 week and also with cardiology in 1 to 2 weeks Consultants: cardiology Med Rec Med Rec Discharge meds: Start taking the following new medications: CLOPIDOGREL (PLAVIX) 75 MG TAB 75 MILLIGRAM ORAL DAILY. Qty = 30 No Refills ASPIRIN (ASPIRIN) 81 MG TAB.CHEW 81 MILLIGRAM ORAL DAILY. Qty = 30 No Refills CARVEDILOL (COREG) 6.25 MG TAB 6.25 MILLIGRAM ORAL TWICE DAILY WITH MEALS. Qty = 60 No Refills ATORVASTATIN (LIPITOR) 80 MG TAB 80 MILLIGRAM ORAL DAILY. Qty = 30 No Refills ISOSORBIDE MONONITRATE SR (IMDUR) 60 MG TAB.SR.2 4H 60 MILLIGRAM ORAL DAILY. Qty = 30 No Refills Objective VS/I O Last Documented: Result Date Time Pulse Ox 96 06/25 0900 Pulse 79 06/25 0900 B/P 119/62 06/25 0800 B/P Mean 85 06/25 0800 Temp 97.7 06/25 0747 O2 Delivery Room air 06/25 0705 Resp 14 06/25 0000 FiO2 21 06/24 1944 O2 Flow Rate 1 06/24 1100 24 hour I O ending at 0700: 06/25 0700 06/24 1900 Intake Total 1250.00 450.00 Output Total 400 300 Balance 850.00 150.00 Intake, IV 1200.00 200.00 Intake, Oral 50 250 Number 0 Bowel Movements Number Voids 3 Output, Stool 0 Output, Urine 400 300 General appearance: alert, awake Head/Eyes: atraumatic, normocephalic, PERRL ENT: moist mucosal membranes Neck: full range of motion, no JVD Cardiovascular: normal capillary refill, normal heart sounds, regular rate rhythm, no heave, no murmur Respiratory: aerating well, clear to auscultatio n, symmetric expansion, no distress Abdomen: non-tender, normal bowel sounds, soft, no distention Genitourinary: no bladder distention Musculoskeletal: normal inspection, no CVA tende rness Neuro/HOSPITAL MEDICINE DIRECTOR: alert, oriented X 3, CNII-XII intact, no motor deficits, no sensory deficits Skin: dry, intact, normal color, normal temperat ure, no rash, access site to right grion intact. Pressure dressing C/D/I. Psychiatry: normal affect, normal mood Discharge Instructions PCP Discharge to: Home/Self Care Additional Discharge Routines: PCP Follow-Up, Co nsultant Follow-Up Diet: Diabetic, Cardiac Discharge management: greater than 30 mins Follow-up Appointments PCP follow-up: PCP: Tyler Morocho Jr, MD PCP follow up timeframe: In 1-2 weeks Attending Physician: Attending Physician: Jamal Red MD Consulting provider 1: Provider 1: Neno Augustin MD Specialty: CardiologyInterventional Consult follow up timeframe: In 1-2 weeks Electronically Signed by Jamal Red MD on at 1231 RPT #: [id number] END OF REPORT 2022-06-24 [facility] 15:01:00-00:00 [facility] ([facility] Cardiology Progress Note REPORT#:[id number] REPORT STATUS: Signed DATE:06/24/22 TIME:1501 PATIENT: PATITO LUNA UNIT #: [id number] ROOM/BED: [facility] : 57 AGE: 66 SEX: M ATTEND: Yumiko Red MD ADM AUTHOR: Neno Augustin MD * ALL edits or amendments must be made on the el ectronic/computer document * Subjective HPI: 66-year-old gentleman with significant PMH PSH and comorbidties including premature CAD s/p CABG x 4 in 2018 who experienced severe cp / angina sob diaphoresis upper epigastric pain. H e states his symptoms started around 5 PM and he woke up and drenched with sweat. This incident occurred again at 11 PM. He also complains of moderate, achy, sharp epigastric pain. He states this sensation is similar to his cardiac issues. Serial EKG's suggested acute STEMI involving the inferior distribution. Code STEMI was activated Free Text Subj Notes Free Text Subj Notes: Feeling better Less cp angina Objective General VS/I O: 24 hour I O ending at 0700: 06/24 0700 06/23 1900 Intake Total 1300.00 Output Total Balance 1300.00 Intake, IV 1300.00 Patient 77.273 kg Weight Weight Estimated Measurement Method Vital Signs: Date Time Temp Pulse Resp B/P B/P Pulse O2 O2 F low FiO2 Mean Ox Delivery Rate 06/24 1402 65 16 115/59 83 95 06/24 1300 85 18 99/56 75 96 06/24 1201 101 29 125/103 111 97 06/24 1100 36.4 Nasal 1 cannula 06/24 1100 65 16 105/58 76 95 06/24 1000 61 11 86/49 65 96 06/24 0942 98 Nasal 2 28 cannula 06/24 0900 81 28 156/83 115 98 06/24 0800 64 14 146/87 110 97 06/24 0700 36.1 Nasal 2 cannula 06/24 0700 72 34 146/91 111 97 06/24 0630 66 11 167/96 125 98 06/24 0615 69 13 150/90 113 98 06/24 0600 63 14 153/88 115 99 06/24 0545 64 10 133/74 93 98 06/24 0531 64 13 131/71 96 97 06/24 0509 65 12 119/73 91 96 06/24 0445 66 11 112/66 84 06/24 0430 83 12 113/70 84 06/24 0415 82 13 116/72 89 06/24 0406 96 Nasal 2 28 cannula 06/24 0400 Nasal 2 cannula 06/24 0400 71 11 123/68 89 06/24 0345 80 15 128/63 88 06/24 0337 36.3 06/24 0330 84 33 152/79 106 06/24 0315 69 16 162/96 122 06/24 0130 70 19 168/90 116 98 Nasal 2 cannula 06/24 0125 Nasal 2 cannula 06/24 0123 98 Nasal 2 cannula 06/24 0111 36.7 85 20 177/98 124 97 Room air PATIENT WEIGHT: Weight (lb): Weight (oz): Weight (kg): 77.273 Medications: Active Meds + DC'd Last 24 Hrs Atorvastatin Calcium (LIPITOR) 80 MG DAILY 1700 PO Aspirin (ECOTRIN) 81 MG DAILY PO Carvedilol (COREG) 6.25 MG Q12HR PO Clopidogrel Bisulfate (Plavix) 75 MG DAILY PO Isosorbide Mononitrate (IMDUR) 60 MG DAILY PO Mupirocin (BACTROBAN NASAL-ADULT ICU/ISSA MRSA PATIENTS) 1 APPLIC 0900,1700 NASAL Ticagrelor (BRILINTA) 0 .STK-MED ONE .ROUTE (DC) Iopamidol (ISOVUE-300) 0 .STK-MED ONE .ROUTE (DC ) Diphenhydramine HCl (BENADRYL) 0 .STK-MED ONE .R OUTE (DC) Famotidine (PEPCID) 0 .STK-MED ONE .ROUTE (DC) Methylprednisolone Sodium Succinate (Solu-MEDROL ) 0 .STK-MED ONE .ROUTE (DC) Heparin Sodium (Porcine) (HEPARIN SODIUM) 0 .STK -MED ONE .ROUTE (DC) Heparin Sodium (Porcine) (HEPARIN 1,000 UNITS/NS 500 ML) 1,500 ML .STK-MED ONE IV (DC) Iopamidol (ISOVUE-300) 0 .STK-MED ONE .ROUTE (DC ) Lidocaine HCl (lidocaine HCL) 0 .STK-MED ONE .RO [place] (DC) Midazolam HCl (VERSED) 0 .STK-MED ONE .ROUTE (DC ) Nitroglycerin/Dextrose (NITROGLYCERIN 100 MCG/ML DRIP) 250 ML .STK-MED ONE IV (DC) Fentanyl Citrate (SUBLIMAZE) 0 .STK-MED ONE .ROU TE (DC) Aspirin (ASPIRIN CHEWABLE) 324 MG X1ED STA PO (D C) Physical Exam General appearance: alert, a wake, oriented, conversational, mental status normal Head/Eyes: atraumatic, EOMI, normocephalic, PERR LA ENT: moist mucosal membranes Neck: carotid bruit, JVD present, full range of motion, non-tender Cardiovascular: CV assessment: abnormal S1/S2, ectopy, gallop, S3 present, S4 present Murmur assessment: I/ HSM Respiratory: crackles, rales, shortness of breat h Abdomen: no distention, no mass/organomegaly, no pulsatile mass, no rebound Lower extremity: LE assessment: edema, abnormal peripheral pulse Neuro/HOSPITAL MEDICINE DIRECTOR: alert, oriented X 3, normal speech, n o motor deficits Results Findings/Data: Laboratory Tests 06/24 06/24 06/24 06/24 0650 0650 0444 0111 Chemistry Sodium (134 - 147 mmol/L) 136 138 Potassium (3.4 - 5.0 mmol/L) 4.3 4.4 Chloride (100 - 108 mmol/L) 108 105 Carbon Dioxide (21 - 32 mmol/L) 27 31 Anion Gap (4.0 - 15.0 GAP calc) 1.0 L 2.0 L BUN (7 - 18 MG/DL) 22 H 27 H Creatinine (0.8 - 1.3 MG/DL) 1.1 1.6 H Glomerular Filtr Rate (>60 estGFR) >=60 max est imate 48 L Glucose (70 - 110 MG/DL) 132 H 122 H Hemoglobin A1c (0.0 - 5.7 % A1C) 5.3 Calcium (8.5 - 10.1 MG/DL) 8.2 L 9.0 Total Creatine Kinase (26 - 192 58 Unit/L) Troponin I High Sens (0 - 78 ng/L) 5.9 NT-Pro-B Natriuret Pep (0 - 100 PG/ML) 127 H Triglycerides (0 - 150 MG/DL) 51 Cholesterol (133 - 200 MG/DL) 136 LDL Cholesterol Measurd (0 - 129 82 MG/DL) Non-HDL Cholesterol (<130 mg/dL) 89 HDL Cholesterol (40 - 59 MG/DL) 47 LDL/HDL Ratio (1.48 - 3.22 Avg Ratio) 1.74 Cholesterol/HDL Ratio (0 RATIO) 2.89 Laboratory Tests 06/24 06/24 0217 0111 Coagulation Activated Coag Time (74 - 125 SEC) 267 H D-Dimer (215 - 500 ng/mLFEU) 261 Laboratory Tests 06/24 06/24 0444 0111 Hematology WBC (3.5 - 11.0 K/mm3) 9.9 9.5 RBC (4.70 - 6.10 M/mm3) 4.69 L 5.09 Hgb (12.3 - 15.9 G/DL) 14.7 16.0 H Hct (35.8 - 46.7 %) 43.5 47.9 H MCV (86.3 - 98.9 Fl) 92.8 94.1 MCH (28.9 - 34.4 pg) 31.3 31.4 MCHC (32.1 - 34.5 G/DL) 33.8 33.4 RDW (11.5 - 14.5 SD) 12.8 12.6 Plt Count (150 - 450 K/mm3) 216 237 MPV (7.0 - 9.6 fL) 10.00 H 9.90 H Neut % (Auto) (40 - 76 %) 93.4 H Lymph % (Auto) (20.5 - 51.1 %) 4.1 L Alcorn % (Auto) (1.7 - 9.3 %) 1.5 L Eos % (Auto) (0.0 - 6.0 %) 0.1 Baso % (Auto) (0.0 - 2.0 %) 0.6 Neut # (Auto) (1.8 - 7.6 K/mm3) 9.2 H Lymph # (Auto) (0.6 - 3.0 K/mm3) 0.4 L Alcorn # (Auto) (0.2 - 1.5 K/mm3) 0.2 Eos # (Auto) (0.0 - 0.4 K/mm3) 0.0 Baso # (Auto) (0.0 - 0.2 K/mm3) 0.1 Abs Immat Gran (auto) (0.00 - 0.03 x10 3/uL) 0. 03 Add Manual Diff (CRITERIA DIFF/SCN) NO Immature Gran % (0.0 - 5.0 %) 0.3 Nucleated RBC % (0.0 - 1.0 /100WBC%) 0.0 Radiology data: Recent Impressions: RADIOLOGY - XR CHEST 1 V 06/24 134 Report Impression - Status: SIGNED Entered: 06/24/2022143 IMPRESSION: Mild left basilar subsegmental atelectasis. Limi garrett study. Impression By: [email or web address] - Bradley Tapia Diagnosis, Assessment Plan Consultants: cardiology Free Text DxA P Notes Free Text DxA P Notes: ASSESSMENT: Acute STEMI - inferior distribution - s/p succes sful primary PCI with PTCA of [place] RCA and DEStenting of the SVG to the RPDA Acute on chronic systolic and diastolic congesti ve heart failure - HFrEF 45% Coronary atherosclerotic disease - s/p CABG x 4 in 2018 Ischemic cardiomyopathy Metabolic syndrome with HHD dyslipdemia insulin resistance PLAN: Otimize cardiac medical management s/p successfu l primary PCI with PTCA of [place] RCA and DEStenting of the SVG to the RPDA Electronically Signed by Neno Augustin MD on at 1101 RPT #: [id number] END OF REPORT 2022-06-24 [facility] 08:43:00-00:00 [facility] ([facility]) Pulmonary Consultation Note REPORT#:[id number] REPORT STATUS: Signed DATE:06/24/22 TIME:08 PATIENT: PATITO LUNA UNIT #: [id number] ROOM/BED: [place] [id number] : 57 AGE: 66 SEX: M ATTEND: Yumiko Red MD ADM AUTHOR: Arnie Candelario MD * ALL edits or amendments must be made on the el [employer]/computer document * History of Present Illness HPI HPI: 66-year-old with history of coronary disease sta tus post CABG in 2018 Presented with chest pain, EKG showed STEMI, STEMI code activated, status post cardiac cath w ith PCI In the ICU overnight, accept able hemodynamic profile, minimal oxygen requirement No chest pain No fever or chills History - Adult longitudinal Additional medical history: Coronary artery disease Additional surgical history: CABG Additional family history: Not contributory to this problem Smoking status for patients 13 years old or olde r: Unknown,if ever smoked Medications: Current Hospital Medications: Antihistamine Drugs Sig/Jenniffer Start time Last Medication Dose Route Stop Time Status Admin Diphenhydramine HCl 0 .STK-MED ONE 06/24 0149 D C (BENADRYL) .ROUTE Blood Formation,Coagulation Sig/Jenniffer Start time Last Medication Dose Route Stop Time Status Admin Clopidogrel Bisulfate 75 MG DAILY 06/24 899 AC (Plavix) PO 07/24 08 Ticagrelor 0 .STK-MED ONE 06/24 0243 DC (BRILINTA) .ROUTE Heparin Sodium 0 .STK-MED ONE 06/24 145 DC (Porcine) .ROUTE (HEPARIN SODIUM) Heparin Sodium 1,500 ML .STK-MED ONE 06/24 145 DC (Porcine) IV (HEPARIN 1,000 UNITS/ NS 500 ML) Cardiovascular Drugs Sig/Jenniffer Start time Last Medication Dose Route Stop Time Status Admin Atorvastatin Calcium 80 MG DAILY 1700 06/24 170 0 AC (LIPITOR) PO 07/24 165 Carvedilol 6.25 MG Q12HR 06/24 899 AC (COREG) PO 07/24 0859 Isosorbide 60 MG DAILY 06/24 899 AC Mononitrate PO 07/24 08 (IMDUR) Lidocaine HCl 0 .STK-MED ONE 06/24 145 DC (lidocaine HCL) .ROUTE Nitroglycerin/ 250 ML .STK-MED ONE 06/24 145 D C Dextrose IV (NITROGLYCERIN 100 MCG/ML DRIP) Central Nervous System Agents Sig/Jenniffer Start time Last Medication Dose Route Stop Time Status Admin Aspirin 81 MG DAILY 06/24 899 AC (ECOTRIN) PO 07/24 0859 Midazolam HCl 0 .STK-MED ONE 06/24 145 DC (VERSED) .ROUTE Fentanyl Citrate 0 .STK-MED ONE 06/24 0145 DC (SUBLIMAZE) .ROUTE Aspirin 324 MG X1ED STA 06/24 0110 DC 06/24 (ASPIRIN CHEWABLE) PO 06/24 0111 0118 Diagnostic Agents Sig/Jenniffer Start time Last Medication Dose Route Stop Time Status Admin Iopamidol 0 .STK-MED ONE 06/24 0233 DC (ISOVUE-300) .ROUTE Iopamidol 0 .STK-MED ONE 06/24 145 DC (ISOVUE-300) .ROUTE Gastrointestinal Drugs Sig/Jenniffer Start time Last Medication Dose Route Stop Time Status Admin Famotidine 0 .STK-MED ONE 06/24 148 DC (PEPCID) .ROUTE Hormones And Synthetic Substit Sig/Jenniffer Start time Last Medication Dose Route Stop Time Status Admin Methylprednisolone 0 .STK-MED ONE 04/22 0149 D C Sodium Succinate .ROUTE (Solu-MEDROL) Skin And Mucous Membrane Agent Sig/Jenniffer Start time Last Medication Dose Route Stop Time Status Admin Mupirocin 1 APPLIC 0900,1700 06/24 0900 AC (BACTROBAN NASAL- NASAL 06/28 1701 ADULT ICU/ISSA MRSA PATIENTS) Allergies: Coded Allergies: Penicillins (Severe, SWELLING 06/24/22) iodine (Severe, SWELLING 06/24/22) Review of Systems All systems rev neg: except as marked Objective Physical Exam Vitals: Last Documented: Result Date Time Pulse Ox 98 06/24 629 B/P 167/96 06/24 0630 B/P Mean 125 06/24 0630 Pulse 66 06/24 0630 Resp 11 06/24 06 FiO2 28 06/24 0406 O2 Delivery Nasal cannula 06/24 040 O2 Flow Rate 2 06/24 0406 Temp 36.3 06/24 0337 Vascular pulse assessment: palpated: R dorsalis pedis, L dorsalis pedis, R radial, L radial. Results Results: x-ray personally reviewed Free Text Obj Notes Free Text Obj Notes: General appearance: alert, awake, oriented Head/Eyes: atraumatic, normocephalic, PERRLA Neck: full range of motion, non-tender, normal t hyroid Cardiovascular: normal heart sounds, normal S1/S 2, regular rate rhythm Respiratory/chest: aerating well, clear to auscu ltation, symmetric expansion Abdomen: soft, non-tender, normal bowel sounds Genitourinary: no bladder distention, no flank p ain Extremities: No edema, moves all, normal capilla ry refill, no calf tenderness Musculoskeletal: full range of motion, normal in spection, painless range of motion, straight leg raise neg Skin: dry, intact, normal color Diagnosis, Assessment Plan Diagnosis, Assessment Plan Problem List/A P: 1. STEMI (ST elevation myocardial infarction) 2. Acute on chronic diastolic CHF (congestive h eart failure) 3. Metabolic syndrome 4. JOAN (acute kidney injury) Consultants: cardiology Free Text DxA P Notes Free Text DxA P Notes: Status post PCI Acceptable hemodynamic profile On coronary artery disease regimen Transfer to telemetry Discharge planning Electronically Signed by Arnie Candelario MD on 06/04 04/27 at 0844 RPT #: [id number] END OF REPORT 2022-06-24 [facility] 04:48:00-00:00 [facility] ([facility]) Hospitalist History Physical REPORT#:[id number] REPORT STATUS: Signed DATE:06/24/22 TIME:447 PATIENT: PATITO LUNA UNIT #: [id number] ROOM/BED: [place] [id number] : 57 AGE: 66 SEX: M ATTEND: Yumiko Red MD ADM AUTHOR: Anisha Pendleton I APRNNP * ALL edits or amendments must be made on the el [employer]/computer document * Anisha Pendleton I 06/24/22447: History of Present Illness HPI Chief complaint: s/p Heart Cath PCP: PCP: Tyler Morocho Jr, MD HPI: Patito Luna is a 66-year-old male with history of CAD with quadruple bypass 2018 who presented to the ED with diaphoresis an d upper epigastric pain/chest discomfort. Patient reports that his neighbour had noticed about 2 days ago that he wasn't looking well and mentioned to him. But his symptoms started around 5 PM yesterday when he woke up and drenched with s weat. This incident occurred again at 11 PM. He also complains of mod erate, achy, sharp epigastric pain. He states this sensation is similar to his cardiac issues. Denies any fever, chills, shortness of breath, nausea or vomiting. Brought in by EMS with concerns for STEMI. Serial EKG's suggested acute STEMI involving the inferior distribution. Code STEMI was activated and he was taken to the [facility] and Dr. Augustin perfomed heart cath with PCI with PTCA of [place] RCA and DEStenting of the SVG to the RPDA by Dr Augustin on 06/24/22 Informant/historian: patient History Social History Smoking status for patients 13 years old or olde r: Unknown,if ever smoked Medication/Allergy-Vaccine Hx Allergies: Coded Allergies: Penicillins (Severe, SWELLING 06/24/22) iodine (Severe, SWELLING 06/24/22) Review of Systems Musculoskeletal: Reports: other (generalized weakness). All systems rev neg: except as noted OBJECTIVE VS/I O: Vital Signs Date Temp Pulse Resp B/P B/P Mean Pulse Ox FiO 2 06/24 97.3-98.0 64-85 10-33 112-177/63-98 84-12 4 96-98 28 Last Documented: Result Date Time Pulse Ox 98 06/24 0545 B/P 133/74 06/24 0545 B/P Mean 93 06/24 0545 Pulse 64 06/24 0545 Resp 10 06/24 0545 FiO2 28 06/24 0406 O2 Delivery Nasal cannula 06/24 0406 O2 Flow Rate 2 06/24 0406 Temp 97.3 06/24 0337 24 hour I O ending at 0700: 06/24 0700 06/23 1900 Intake Total Output Total Balance Patient 77.273 kg Weight Weight Estimated Measurement Method Patient Weight and BMI Weight (kg): 77.273 BMI: 23.1 Medications: Active Meds + DC'd Last 24 Hrs Atorvastatin Calcium (LIPITOR) 80 MG DAILY 1700 PO Aspirin (ECOTRIN) 81 MG DAILY PO Carvedilol (COREG) 6.25 MG Q12HR PO Clopidogrel Bisulfate (Plavix) 75 MG DAILY PO Isosorbide Mononitrate (IMDUR) 60 MG DAILY PO Mupirocin (BACTROBAN NASAL-ADULT ICU/ISSA MRSA PATIENTS) 1 APPLIC 0900,1700 NASAL Ticagrelor (BRILINTA) 0 .STK-MED ONE .ROUTE (DC ) Iopamidol (ISOVUE-300) 0 .STK-MED ONE .ROUTE (DC ) Diphenhydramine HCl (BENADRYL) 0 .STK-MED ONE .R OUTE (DC) Famotidine (PEPCID) 0 .STK-MED ONE .ROUTE (DC) Methylprednisolone Sodium Succinate (Solu-MEDROL ) 0 .STK-MED ONE .ROUTE (DC) Heparin Sodium (Porcine) (HEPARIN SODIUM) 0 .STK -MED ONE .ROUTE (DC) Heparin Sodium (Porcine) (HEPARIN 1,000 UNITS/NS 500 ML) 1,500 ML .STK-MED ONE IV (DC) Iopamidol (ISOVUE-300) 0 .STK-MED ONE .ROUTE (DC ) Lidocaine HCl (lidocaine HCL) 0 .STK-MED ONE .R OUTE (DC) Midazolam HCl (VERSED) 0 .STK-MED ONE .ROUTE (DC ) Nitroglycerin/Dextrose (NITROGLYCERIN 100 MCG/ML DRIP) 250 ML .STK-MED ONE IV (DC) Fentanyl Citrate (SUBLIMAZE) 0 .STK-MED ONE .ROU TE (DC) Aspirin (ASPIRIN CHEWABLE) 324 MG X1ED STA PO (D C) General appearance: alert, awake, oriented, no a cute distress, no respiratory distress Head/Eyes: atraumatic, normocephalic, PERRL ENT: moist mucosal membranes Neck: full range of motion, no JVD Cardiovascular: normal capillary refill, normal heart sounds, regular rate rhythm, no heave, no murmur Respiratory: aerating well, clear to auscultatio n, symmetric expansion, no distress Abdomen: non-tender, normal bowel sounds, soft, no distention Genitourinary: no bladder distention Vascular pulse assessment: palpated: R dorsalis pedis, L dorsalis pedis, R radial, L radial. Musculoskeletal: normal inspection, no CVA tende rness Neuro/HOSPITAL MEDICINE DIRECTOR: alert, oriented X 3, CNII-XII intact, no motor deficits, no sensory deficits Skin: dry, intact, normal color, normal temperat ure, no rash, access site to right grion intact. Pressure dressing C/D/I. Psychiatry: normal affect, normal mood Results Findings/Data: Laboratory Tests: 06/24 06/24 06/24 0444 0217 0111 Chemistry Sodium (134 - 147 mmol/L) 136 138 Potassium (3.4 - 5.0 mmol/L) 4.3 4.4 Chloride (100 - 108 mmol/L) 108 105 Carbon Dioxide (21 - 32 mmol/L) 27 31 Anion Gap (4.0 - 15.0 GAP calc) 1.0 L 2.0 L BUN (7 - 18 MG/DL) 22 H 27 H Creatinine (0.8 - 1.3 MG/DL) 1.1 1.6 H Glomerular Filtr Rate (>60 estGFR) >=60 max es timate 48 L Glucose (70 - 110 MG/DL) 132 H 122 H Calcium (8.5 - 10.1 MG/DL) 8.2 L 9.0 Total Creatine Kinase (26 - 192 Unit/L) 58 Troponin I High Sens (0 - 78 ng/L) 5.9 NT-Pro-B Natriuret Pep (0 - 100 PG/ML) 127 H Coagulation Activated Coag Time (74 - 125 SEC) 267 H D-Dimer (215 - 500 ng/mLFEU) 261 Hematology WBC (3.5 - 11.0 K/mm3) 9.9 9.5 RBC (4.70 - 6.10 M/mm3) 4.69 L 5.09 Hgb (12.3 - 15.9 G/DL) 14.7 16.0 H Hct (35.8 - 46.7 %) 43.5 47.9 H MCV (86.3 - 98.9 Fl) 92.8 94.1 MCH (28.9 - 34.4 pg) 31.3 31.4 MCHC (32.1 - 34.5 G/DL) 33.8 33.4 RDW (11.5 - 14.5 SD) 12.8 12.6 Plt Count (150 - 450 K/mm3) 216 237 MPV (7.0 - 9.6 fL) 10.00 H 9.90 H Neut % (Auto) (40 - 76 %) 93.4 H Lymph % (Auto) (20.5 - 51.1 %) 4.1 L Alcorn % (Auto) (1.7 - 9.3 %) 1.5 L Eos % (Auto) (0.0 - 6.0 %) 0.1 Baso % (Auto) (0.0 - 2.0 %) 0.6 Neut # (Auto) (1.8 - 7.6 K/mm3) 9.2 H Lymph # (Auto) (0.6 - 3.0 K/mm3) 0.4 L Alcorn # (Auto) (0.2 - 1.5 K/mm3) 0.2 Eos # (Auto) (0.0 - 0.4 K/mm3) 0.0 Baso # (Auto) (0.0 - 0.2 K/mm3) 0.1 Abs Immat Gran (auto) (0.00 - 0.03 x10 3/uL) 0. 03 Add Manual Diff (CRITERIA DIFF/SCN) NO Immature Gran % (0.0 - 5.0 %) 0.3 Nucleated RBC % (0.0 - 1.0 /100WBC%) 0.0 Laboratory Tests 06/24/22 0444: [Embedded Image Not Available] 06/24/22 0111: [Embedded Image Not Available] Radiology data: Recent Impressions: RADIOLOGY - XR CHEST 1 V 06/24 134 Report Impression - Status: SIGNED Entered: 06/24/2022143 IMPRESSION: Mild left basilar subsegmental atelectasis. Pierre garrett study. Impression By: Angel - Bradley Tapia Results: labs reviewed, vital signs reviewed, vi monique signs stable Diagnosis, Assessment Plan Problem List/A P: 1. STEMI (ST elevation myocardial infarction) 2. Status post left heart catheterization by pe rcutaneous approach 3. Acute on chronic diastolic CHF (congestive h eart failure) 4. Metabolic syndrome 5. JOAN (acute kidney injury) Free Text A P: Acute STEMI (ST elevation myocardial infarction) Status post left heart catheterization by percut aneous approach Hx of CAD with quadrupple CABG 2018 - PCI with PTCA of [place] RC A and DEStenting of the SVG to the RPDA by Dr Augustin on 06/24/22 - monitor under continuous telemetry - start DAPT with ASA + Plavix per cardiology. s tart statin, and BB. Add low dose Imdur due to refractory atypical chest/back pain. -obtain echo - Cardiology following -Telemetry monitoring Acute on chronic systolic and diastolic congesti ve heart failure Ischemic cardiomyopathy - HFrEF 45% - further managment same as above - optimize cardiac medical management Coronary atherosclerotic disease - s/p CABG x 4 in 2017 - DEStenting of the SVG to the RPDA by Dr Augustin on 06/24/22 - DAPT with ASA + Plavix Metabolic syndrome with HHD dyslipdemia insulin resistance - borderline elevated glucose level - check A1C and lipid panel at AM - resume statin - lifestyle modification JOAN (acute kidney injury) (HCC) - admitted with Cr 1.6, BUN 27, EGFR 28, improvi ng - Likely due to prerenal state; cardiorenal, hyp oxia, hypoperfusion. - continue 1L NS at 100cc/h - avoid nephrotoxin where possible - monitor renal function with daily labs - renally dose meds DVT prophylaxis: SCDs, Plavix + ASA GI prophylaxis: pepcid Disposition Anticipated: Home with family suppor t vs rehab Time Spent on Patient Care, Coordination and Cou nselin min. Code Status: Full code. Anisha Asamah, [employer] Consultants: cardiology Plan discussed with: patient Time spent: Time spent on patient care (minutes): 45 Code status: full code Jamal Red 06/24/22 1741: Attestations Physician Attestation Agree w/findings plan: Appreciate note from FREIGHT HUSTLER Agree with the history and physical findings Lab works noted Imaging noted as well Findings were discussed with the DAMION and Staff Electronically Signed by Anisha Pendleton n 06/24/22 at 0753 Electronically Signed by Jamal Red MD on at 1742 RPT #: [id number] END OF REPORT 2022-06-24 [facility] 03:02:00-00:00 [facility] ([facility]) Cardiology Consultation REPORT#:[id number] REPORT STATUS: Signed DATE:06/24/22 TIME:0302 PATIENT: PATITO LUNA UNIT #: [id number] ROOM/BED: [place] [id number] : 57 AGE: 66 SEX: M ATTEND: Yumiko Red MD ADM AUTHOR: Neno Augustin MD * ALL edits or amendments must be made on the [employer]/computer document * History of Present Illness HPI HPI: 66-year-old gentleman with significant PMH PSH and comorbidties including premature CAD s/p CABG x 4 in 2018 who experienced severe cp / angina sob diaphoresis upper epigastric pain. H e states his symptoms started around 5 PM and he woke up and drenched with sweat. This incident occurred again at 11 PM. He also complains of moderate, achy, sharp epigastric pain. He states this sensation is similar to his cardiac issues. Serial EKG's suggested acute STEMI involving the inferior distribution. Code STEMI was activated History - Adult longitudinal Smoking status for patients 13 years old or olde r: Unknown,if ever smoked Allergies: Coded Allergies: Penicillins (Severe, SWELLING 06/24/22) iodine (Severe, SWELLING 06/24/22) Review of Systems Constitutional: fatigue, generalized weakness, malaise. Skin: diaphoresis, ecchymosis, itching, swelling. Allergy/Immun: allergic reaction, hives, rhinorrhea, sneezing. Eyes: Denies: redness, discharge, visual loss/blurred, itching, diplopia, eye pain, photophobia, swelling. ENT: nasal congestion, sinus problem, sore throat. Respiratory: Reports: FRIEDMAN (dyspnea on exertion), non producti ve cough, SOB. Cardiovascular: Reports: chest pain, dyspnea on exertion, edema, orthopnea, parox noctural dyspnea, unstable angina. GI: Reports: abdominal pain, GERD. : Denies: dysuria, flank pain, frequency, hematuria, nocturia, penile discharge, penile lesion, testicular pa in, testicular swelling, urgency, urinary retention. Musculoskeletal: arthritis, joint pain. Heme: petechiae. Endocrine: Denies: cold intolerance, heat intolerance, poly dipsia, polyphagia, polyuria, weight gain, weight loss. Neuro: Denies: confusion, seizure, slurred speech, sync ope, unable to speak. Psych: anxiety, stress. Objective General VS/I O: Vital Signs: Date Time Temp Pulse Resp B/P B/P Pulse O2 O2 F low FiO2 Mean Ox Delivery Rate 06/24 0130 70 19 168/90 116 98 Nasal 2 cannula 06/24 0125 Nasal 2 cannula 06/24 0123 98 Nasal 2 cannula 06/24 0111 36.7 85 20 177/98 124 97 Room air 24 hour I O ending at 0700: 06/24 0700 06/23 1900 Intake Total Output Total Balance Patient 77.273 kg Weight Weight Estimated Measurement Method PATIENT WEIGHT: Weight (lb): Weight (oz): Weight (kg): 77.273 Physical Exam General appearance: alert, a wake, oriented, conversational, mental status normal Head/Eyes: atraumatic, EOMI, normocephalic, PERR LA ENT: moist mucosal membranes Neck: carotid bruit, JVD present, full range of motion, non-tender Cardiovascular: CV assessment: abnormal S1/S2, ectopy, gallop, S3 present, S4 present Murmur assessment: I/ HSM Respiratory: crackles, rales, shortness of breat h Abdomen: no distention, no mass/organomegaly, no pulsatile mass, no rebound Lower extremity: LE assessment: edema, abnormal peripheral pulse Neuro/HOSPITAL MEDICINE DIRECTOR: alert, oriented X 3, normal speech, n o motor deficits Results Findings/Data: Laboratory Tests 06/24 011 Chemistry Sodium (134 - 147 mmol/L) 138 Potassium (3.4 - 5.0 mmol/L) 4.4 Chloride (100 - 108 mmol/L) 105 Carbon Dioxide (21 - 32 mmol/L) 31 Anion Gap (4.0 - 15.0 GAP calc) 2.0 L BUN (7 - 18 MG/DL) 27 H Creatinine (0.8 - 1.3 MG/DL) 1.6 H Glomerular Filtr Rate (>60 estGFR) 48 L Glucose (70 - 110 MG/DL) 122 H Calcium (8.5 - 10.1 MG/DL) 9.0 Total Creatine Kinase (26 - 192 Unit/L) 58 Troponin I High Sens (0 - 78 ng/L) 5.9 NT-Pro-B Natriuret Pep (0 - 100 PG/ML) 127 H Laboratory Tests 06/247 0111 Coagulation Activated Coag Time (74 - 125 SEC) 267 H D-Dimer (215 - 500 ng/mLFEU) 261 Laboratory Tests 06/24 110 Hematology WBC (3.5 - 11.0 K/mm3) 9.5 RBC (4.70 - 6.10 M/mm3) 5.09 Hgb (12.3 - 15.9 G/DL) 16.0 H Hct (35.8 - 46.7 %) 47.9 H MCV (86.3 - 98.9 Fl) 94.1 MCH (28.9 - 34.4 pg) 31.4 MCHC (32.1 - 34.5 G/DL) 33.4 RDW (11.5 - 14.5 SD) 12.6 Plt Count (150 - 450 K/mm3) 237 MPV (7.0 - 9.6 fL) 9.90 H Radiology Data: Recent Impressions: RADIOLOGY - XR CHEST 1 V 06/24 134 Report Impression - Status: SIGNED Entered: 06/24/2022143 IMPRESSION: Mild left basilar subsegmental atelectasis. Pierre garrett study. Impression By: Angel - Bradley Tapia Diagnosis, Assessment Plan Free Text DxA P Notes Free Text DxA P Notes: ASSESSMENT: Acute STEMI - inferior distribution - s/p succes sful primary PCI with PTCA of [place] RCA and DEStenting of the SVG to the RPDA Acute on chronic systolic and diastolic congesti ve heart failure - HFrEF 45% Coronary atherosclerotic disease - s/p CABG x 4 in 2018 Ischemic cardiomyopathy Metabolic syndrome with HHD dyslipdemia insulin resistance PLAN: s/p successful primary PCI w ith PTCA of [place] RCA and DEStenting of the SVG to the RPDA optimize cardiac medical management Electronically Signed by Neno Augustin MD on at 1058 RPT #: [id number] END OF REPORT 2022-06-24 [facility] 02:57:00-00:00 [facility] ([facility]) DT Operative Note REPORT#:[id number] REPORT STATUS: Signed DATE:06/24/22 TIME:256 PATIENT: PATITO LUNA UNIT #: [id number] ROOM/BED: [place] [id number] : 57 AGE: 66 SEX: M ATTEND: Yumiko Red MD ADM AUTHOR: Neno Augustin MD * ALL edits or amendments must be made on the el [employer]/computer document * Operative Report Operative Note Note: Procedure Date: 06/24/2022 Procedures performed: 1. Left heart / cardiac catheterization, selecti ve diagnostic coronary angiograms, and left ventriculogram, LEF T INTERNAL MAMMARY ARTERY (JOHNSON) graft and SAPHENOUS VEIN BYPASS GRAFT (SVG) angiograms 2. Percutaneous coronary revascularization of th e [place] RIGHT POSTERIOR DESCENDING ARTERY (RPDA)) di stribution by primary PTCA and drug-eluting stenting of the distal portion of the SVG to the RPDA across the distal anastomosis into the mid RPDA using a 2.5 x 18 mm Xience stent Indication: Acute inferior STEMI with known significant CAD s/p CABG x 4 in 2018 with progressive unstable angina Procedure details: Following informed consent and detailed discussi on of procedural risks and benefits with the patient that preceded time-out session as per protocal then followed by adequate moderate sedation induction and local anesthesia administration, diagnostic cardiac catheterizati on with selective coronary angiograms, bypass graft angiograms, and left ventriculogram performed via the right femoral arterial approach through a 5 Fr sheath using 5 Fr JL4 and XB3.5 guding catheters were successfully obtained. Following diagnostic angiogr ams, decision was made to proceed with percutaneous coronary revascularization of the [place] RIGHT C ORONARY ARTERY distribution. The proximal to mid portions of the previously o cclude RCA was successfully crossed using a 0.014" Whisp er wire. Serial PTCA was performed using a 2.5 x 15 mm Emerge balloon. After yin w was restored, the distal RCA was also noted to be occluded at the distal anastomosis of the SVG to the RPDA. Attention was then turned to SVG to the RPDA. T he Whisper wire was then redirected to successfully crossed the distal anastomos is into the RPDA. Follolwing predilatation perfomed using the 2.5 x 15 mm Emerge balloon, a 2.5 x 18 mm Xience stent was successfully deployed covering the dista l anastomosis spanning from the distal SVG into the mid RPDA. Follow-up angiograms demo nstrated an excellent angiographic results and no residual marcy nosis within the stented segment. KASIE 3 flow was restored from KASIE 1 flow The procedure was completed with no complication and minimal blood loss (EBL < 5 ml) afterwhich the catheter and the arterial she ah were removed with satisfactory hemostasis achi eved using AngioSeal vascular closure device before the patient, who tolerated w ell the procedure, was discharged from the [facility] in stable condition. Results: I. Diagnostic angiography demonstrated moderate to severe diifuse coronary calcification with significant [place] three vess el coronary artery and bypass grafts atherosclerotic disease in a right domina nt coronary distribution 1. LMCA -- 20-30% scattered plaques 2. LAD -- diffusely diseased with scattered more focal 70-95% stenoses throughout extending beyond the bypass graft dis monique anastomosis. 3. LCX -- 100% total chronic occlusion in the pr oximal portion. All obtuse marginal branches (OMB) were small in ca liber with diffuse disease was diffuse disease in The SVG bypass to a proximal OMB was patent but the [place] OMB was atretic with diffuse disease beyond the distal a nastomosis. In addition, The JOHNSON bypass appeared to jocelyn ch to another OMB was patent but the [place] OMB was also atretic and subtottally occluded beyond the distal anastomosis. 4 RCA -- 100% chronic total occlusion in the dis monique portion. The SVG bypass to the RIGHT POSTERIOR DESCENDING ARTERY (RPDA) was patent with subtotal occlusion at the distal anastomosis. II. Left ventriculography Left ventriculogram demonstrated mild left vent ricular systolic dysfunction. Estimated LVEF was 45%. LVEDP was 18-20 mmHg. III. Percutaneous coronary intervention and dillan scularization: Primary percutaneous coronary revascularization of the RIGHT CORONARY ARTERY proximal and mid distributio n was performed using a 2.5 x 15 mm Emerge balloon. Primary percutaneous coronary revascularization of the RIGHT POSTERIOR DESCENDING ARTERY (RPDA) dis tribution was successfully achieved by primary PTCA followed by drug-eluting stenting of the distal portion of the SVG to the RPDA across the distal anastomosi s into the mid RPDA using a 2.5 x 18 mm Xience stent with excellent angiographic results as described above. KASIE 3 flow was successfully restored from KASIE 2 flow. The result was discussed and presented i n details with the patient and family. All questions and concerns were addressed satisf actorily. Electronically Signed by Neno Augustin MD on at 1104 RPT #: [id number] END OF REPORT 2022-06-24 [facility] 01:25:00-00:00 [facility] ([facility]) EMERGENCY PROVIDER REPORT REPORT#:[id number] REPORT STATUS: Signed DATE:06/24/22 TIME:012 PATIENT: PATITO LUNA UNIT #: [id number] ROOM/BED: [place] [id number] : 57 AGE: 66 SEX: M PCP PHYS: Horace Morocho Jr, MD SERVICE AUTHOR: Sydney De Leon MD * ALL edits or amendments must be made on the el [employer]/computer document * HPI-Chest Pain 40 and Over Free Text HPI Notes Free Text HPI Notes 66-year-old male with histor y of quadruple bypass presents with diaphoresis and upper epigastric pain/chest discomfort. He states his symptoms started around 5 PM and he woke up and drenched with sweat. This incident occurred again at 11 PM. He also complains of moderate, achy, sharp epigastric pain. He states this sensation is similar to his cardiac issues. Denies any fever, chills, shortness of breath, nausea or vomiting. Brought in by EMS with concerns for STEMI General Confirmed Patient Yes Initial Greet Date/Time 06/24/22108 Presentation Chief Complaint Chest pain, Diaphoresis, Shortne ss of breath Sudden in Onset? Yes Onset Occurred Today, Hours ago Symptom Duration Since onset, Waxes and wanes, L asting hours Progression since Onset Gradually worsening )( Migration/Movement None Risk-Chest Pain 40 and Over Risk Stratification )( Coronary Artery Disease Risk factors reviewed, Hyperlipidemia, Hypertension )( Thoracic Aortic Dissection Risk factors revie wed, Hypertension )( Pulmonary Embolism Risk factors reviewed )( AMI-Aspirin Aspirin Last 24 Hrs 324 mg, By EMS )( HEART for MACE )( HEART for MACE Response Value History Mod index of suspicion [address]-depression 2 Age Age 45 - 65 1 Risk Factors for CAD 3+ CAD risk factors 2 Troponin < or = to NL troponin 0 Total 6 Review of Systems ROS Statements All systems rev neg except as marked. Basic Review of Systems Basic ROS EYES: No redness, ENT: No sore throat, : No dysuria/frequency, HEM: No bleeding/bruising Focused Review of Systems Neurologic Reports: Numbness (L arm), Tingling. Past Medical History - Adult Stated Complaint CHEST PAIN Allergies Coded Allergies: Penicillins (Severe, SWELLING 06/24/22) iodine (Severe, SWELLING 06/24/22) Calculated Suicide Risk (nurs) No risk Smoking status for patients 13 years old or olde r: Unknown,if ever smoked Physical Exam Vital Signs Vital Signs First Documented: Result Date Time Pulse Ox 97 06/24 110 B/P 177/98 06/24 110 B/P Mean 124 06/24 110 O2 Delivery Room air 06/24 110 Temp 36.7 06/24 110 Pulse 85 06/24 110 Resp 20 06/24 110 O2 Flow Rate 2 06/24 122 Last Documented: Result Date Time Pulse Ox 98 06/240 B/P 168/90 06/24 129 B/P Mean 116 06/24 129 O2 Delivery Nasal cannula 06/24 129 O2 Flow Rate 2 06/24 129 Pulse 70 06/24 129 Resp 19 06/24 129 Temp 36.7 06/24 110 Review of Vital Signs Unavailable Focused PE General/Const General/Const Awake, Alert Distress/Hydration Distress mild. Resp/Chest Respiratory/Chest Atraumatic, Breath sounds NL, Breath sounds = bilat, No respiratory distress Cardiovascular Cardiovascular Heart rate NL, Regular rhythm, H eart sounds NL Abdomen/GI Abdomen/GI Atraumatic, Soft, Non-tender Interpretation Diagnostics Lab Results Interpretation Results Laboratory Tests 06/24/22 0111: [Embedded Image Not Available] Laboratory Tests: 06/24 06/24 0217 0111 Chemistry Sodium (134 - 147 mmol/L) 138 Potassium (3.4 - 5.0 mmol/L) 4.4 Chloride (100 - 108 mmol/L) 105 Carbon Dioxide (21 - 32 mmol/L) 31 Anion Gap (4.0 - 15.0 GAP calc) 2.0 L BUN (7 - 18 MG/DL) 27 H Creatinine (0.8 - 1.3 MG/DL) 1.6 H Glomerular Filtr Rate (>60 estGFR) 48 L Glucose (70 - 110 MG/DL) 122 H Calcium (8.5 - 10.1 MG/DL) 9.0 Total Creatine Kinase (26 - 192 Unit/L) 58 Troponin I High Sens (0 - 78 ng/L) 5.9 NT-Pro-B Natriuret Pep (0 - 100 PG/ML) 127 H Coagulation Activated Coag Time (74 - 125 SEC) 267 H D-Dimer (215 - 500 ng/mLFEU) 261 Hematology WBC (3.5 - 11.0 K/mm3) 9.5 RBC (4.70 - 6.10 M/mm3) 5.09 Hgb (12.3 - 15.9 G/DL) 16.0 H Hct (35.8 - 46.7 %) 47.9 H MCV (86.3 - 98.9 Fl) 94.1 MCH (28.9 - 34.4 pg) 31.4 MCHC (32.1 - 34.5 G/DL) 33.4 RDW (11.5 - 14.5 SD) 12.6 Plt Count (150 - 450 K/mm3) 237 MPV (7.0 - 9.6 fL) 9.90 H Recent Impressions: RADIOLOGY - XR CHEST 1 V 06/24 134 Report Impression - Status: SIGNED Entered: 06/24/2022143 IMPRESSION: Mild left basilar subsegmental atelectasis. Limi garrett study. Impression By: [email or web address] Bradley Salinas Lab Imaging Statement Laboratory radiographic studies reviewed and con sidered in the medical decision-making. ECG #1 Interpretation Date 06/24/22 Time 0107 Interpreted by and reviewed by me, Independently interpreted Rate 69 ECG Q-T-ST - AR STEMI inferior wall, ST depressi on - lat Re-Evaluation MDM Free Text MDM Notes Free Text MDM Notes Code STEMI activated Differential diagnosis: NSTE AR, STEMI, pneumonia, angina, ACS, costochondritis, asthma exacerbation, pulmonary embolism, GERD/ga stritis Final diagnoses: STEMI Comorbidities/restratification: Quadruple bypass , hypertension, CAD --Acuity of presenting problems: Acute severe ch est pain History obtained from independent source: EMS External records reviewed: EKG Discussion of management/consultants: -- Discussed [facility] with hospitalist and they agree and will admit patient -- Discussed case with Parmjiti cliff: They agree with management plan and will see patient-spoke to sap administrator and will present for cardiac catheterization Independent interpretation of studies by Dr. De Leon: EKG independently reviewed and interpreted Diagnostic testing/prescription medication consi dered (not performed): None Social determinants of health that affect care: None Shared decision making: Disc ussion with patient on work-up and disposition based on presenting symptoms/complaints. Admitted to [facility] ICU after catheterization ED Course Medication(s) Ordered Medication(s) Ordered: Antihistamine Drugs Sig/Jenniffer Start time Last Medication Dose Route Stop Time Status Admin Diphenhydramine HCl 0 .STK-MED ONE 06/24 0149 D C .ROUTE Blood Formation,Coagulation Sig/Jenniffer Start time Last Medication Dose Route Stop Time Status Admin Heparin Sodium 0 .STK-MED ONE 06/24 145 DC (Porcine) .ROUTE Heparin Sodium 1,500 ML .STK-MED ONE 06/24 145 DC (Porcine) IV Cardiovascular Drugs Sig/Jenniffer Start time Last Medication Dose Route Stop Time Status Admin Lidocaine HCl 0 .STK-MED ONE 06/24 145 DC .ROUTE Nitroglycerin/ 250 ML .STK-MED ONE 06/24 014 D C Dextrose IV Central Nervous System Agents Sig/Jenniffer Start time Last Medication Dose Route Stop Time Status Admin Midazolam HCl 0 .STK-MED ONE 06/24 014 DC .ROUTE Fentanyl Citrate 0 .STK-MED ONE 06/24 014 DC .ROUTE Aspirin 324 MG X1ED STA 06/24 0110 DC / PO 06/24 011 0118 Diagnostic Agents Sig/Jenniffer Start time Last Medication Dose Route Stop Time Status Admin Iopamidol 0 .STK-MED ONE 06/24 145 DC .ROUTE Gastrointestinal Drugs Sig/Jenniffer Start time Last Medication Dose Route Stop Time Status Admin Famotidine 0 .STK-MED ONE 06/24 148 DC .ROUTE Hormones And Synthetic Substit Sig/Jenniffer Start time Last Medication Dose Route Stop Time Status Admin Methylprednisolone 0 .STK-MED ONE 06/24 148 DC Sodium Succinate .ROUTE Skin And Mucous Membrane Agent Sig/Jenniffer Start time Last Medication Dose Route Stop Time Status Admin Mupirocin 1 APPLIC 0900,1700 06/24 0900 AC NASAL 06/28 170 Patient Discharge Departure Vital Signs/Condition Vital Signs First Documented: Result Date Time Pulse Ox 97 06/24 0111 B/P 177/98 06/24 0111 B/P Mean 124 06/24 0111 O2 Delivery Room air 06/24 011 Temp 36.7 06/24 0111 Pulse 85 06/24 0111 Resp 20 06/24 0111 O2 Flow Rate 2 06/24 0123 Last Documented: Result Date Time Pulse Ox 98 06/24 0130 B/P 168/90 06/24 0130 B/P Mean 116 06/24 0130 O2 Delivery Nasal cannula 06/24 0130 O2 Flow Rate 2 06/24 0130 Pulse 70 06/24 0130 Resp 19 06/24 0130 Temp 36.7 06/24 0111 All vital signs available at the time of this en try have been reviewed. Clinical Impression Clinical Impression Primary Impression: STEMI (ST elevation myocardi al infarction) Disposition Decision Admit Admit Physician Name Jamal Red MD Admit Physician Hospitalist Request Time 213 Request Date 06/24/22 )( Admission Accepts Yes )( Accepted Time 213 )( Accepted Date 06/24/22 Call Information will see patient Discharge/Care Plan Admit Note I have spoken with the patie nt and/or caregivers. I have explained the patient's condition, diagnoses and william atment plan based on the information available to me at this time. I have answered the patient's and/ or caregiver's questions and addressed any concerns. The patient and/or careg jody have as good an understanding of the patient 's diagnosis, condition and treatment plan as can be expected at this point. The patient has been stabilized within the capability of the emergency department. The patient wi ll be transported for further care and management or will be moved to an observation or inpatient service. I have communicated with the staff or medical p ractitioner taking over this patient's care. at 0410 RPT #: [id number] END OF REPORT 2018-08-15 EXAM: XR CHEST AP 1 VIEW RAMIRO velasquez [facility] 21:33:00-00:00 DATE: 08/15/2018 2137 hours CDT C enter INDICATION: - chest pain COMPARISON: 1606 hours TECHNIQUE: Chest AP -- 1 View FINDINGS: Cardiac silhouette size is normal. Central pulmonary vascularity is within normal l imits. Mediastinal and hilar contours are normal. No airspace consolidation, pleural effusion, or pneumothorax present. Unchanged platelike atelectasis and/or scarring in the left lung base noted. Skeletal structures demonstrate no acute finding s. Surgical clips project over the lower chest abou t the midline. Diffuse osteopenia noted. IMPRESSION: No acute cardiopulmonary abnormality is observed . Stable platelike atelectasis and/or scarring in the left lung base. 2018-08-15 EXAM: US ABDOMEN LIMITED RAMIRO velasquez [facility] 21:33:00-00:00 DATE: 08/15/2018 2212 hours Cente r INDICATION: - epigastric/RUQ pain, hx of gallsto daly ADDITIONAL INFORMATION: None. COMPARISON: None. TECHNIQUE: Multiplanar mireya elma and color Doppler ultrasound of the right upper quadrant. Study quality is optimal. UT SECTION: Body FINDINGS: Liver: Craniocaudal length: 17 cm. Echogenicity: Increased Surface: Normal. Mass (size and location): None. Main portal vein: Caliber: 1 cm. Flow: Hepatopetal. Bile ducts: Common bile duct diameter: 0.32 cm. Intrahepatic ducts: Normal. Gallbladder: Well-distended Gallstones: Impacted gallstone in the gallbladde r neck region. Gallbladder sludge: None. Gallbladder wall: 0.18 cm. There is trace edema in the gallbladder wall. Polyps/masses: None. Pericholecystic fluid: None. Sonographic Napier sign: Absent. Pancreas: Partially obscured. No focal lesions. Spleen: Size: 13.28 x 3.85 x 4.15 cm. Mass or focal lesion (size and location): None. Right kidney: Size: 11.71 x 5.39 x 5.11 cm. Cortical thickness: Normal. Hydronephrosis: None. Echogenicity: Normal. Calculi: None. Cysts/Masses: None. Free fluid: None. Other: None. IMPRESSION: 1. Impacted gallstone in the gallbladder neck region. No evidence of cholecystitis. If clinical suspicion of acute cholecystitis remains high then a HIDA scan may be helpful for further evaluation. 2. Hepatosteatosis. 2018-06-21 PROCEDURE: [facility] 12:01:00-00:00 1. US-guided placement of 10 -Turkmen percutaneous drainage catheter in anterior chest wall fluid collection. 2. Doxycycline sclerotherapy of anterior chest w all seroma. 3. Removal of previously placed anterior chest w all drain. DATE OF PROCEDURE: 06/21/2018 INDICATION: 62-year-old male status post coronary artery bypass graft at outside hospital October 2017. 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 The patient had surgical debridemen t with surgical drains place d in early May 2018. The drains were recently removed. The patient presents with anterior chest wall fluid collection concerning for seroma. Anterior chest wall drain and d oxycycline sclerotherapy was performed on 06/03/2018. The patient is here for drain evaluation. PHYSICIANS: Dr. Pepito Vasquez , the attending physician, was present for the procedure and its imaging. MEDICATIONS: Moderate sedati on was achieved with fentanyl IV and Versed IV administered by the radiology nurse under the supervision of Dr. Vasquez. Sedation time was 30 minutes, monitored all times by radiology nursing staff. TECHNIQUE AND FINDINGS: Informed written consent was obtained. The patient was then brought to the procedure suite, placed in the supine position, and a timeout was performed. Ultrasound images demonstrated a small amount of f luid remaining in the seroma with several loculations. The patient was then prepped and draped in standard sterile fashion. Maximal sterile barrier precautions were used. Lidocaine 1% was infiltrated in to the subcutaneous soft tis sues for local anesthesia. Under ultrasound guidance, a 5-Turkmen 19-gauge sheath needle was advanced into the fluid collection. A small amount of serosanguineous fluid was re moved. A 0.035 inch short Am maxim wire was advanced. The tract was dilated with 8 and 10-Turkmen dilators. A 10-Turkmen locking loop catheter was advanced over the wire, locking loop formed in the fluid c ollection. A total of approx imately 70 mL of serosanguineous fluid was aspirated, with a sample sent for analysis. The catheter was secured to the skin with 2-0 Prolene suture. A sterile dressing was ap plied. A bag was attached fo r gravity drainage. The patient appeared to tolerate the procedure well. IMPRESSION: Ultrasound-guided placement of 10-Turkmen percutaneous drainage catheter in anterior chest wall fluid collection. Removal of approximately 70 mL of serosanguineous fluid, with a sample sent for analysis. PLAN: 1. Cannot perform sclerother apy with Betadine as the patient has an iodine allergy. We will proceed with doxycycline sclerotherapy as discussed with Dr. Rivera (500 mg in 25 mL, dwell time of 1 hour). 2. Previously placed percuta neous drainage catheter will be removed following one hour of doxycycline sclerotherapy. 3. ENEDINA bulb was placed onto the drain for negativ e pressure. 2018-06-03 PROCEDURE: CT-guided placeme nt of 10-Turkmen percutaneous drainage catheter in anterior chest wall fluid collection. [facility] [place] 08:58:00-00:00 DATE OF PROCEDURE: 06/03/2018 INDICATION: 62-year-old male status post coronary artery bypass graft at outside hospital October 2017. 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 The patient had surgical debridemen t with surgical drains place d in early May 2018. The drains were recently removed. The patient presents with anterior chest wall fluid collection concerning for seroma. PHYSICIANS: Dr. Pepito Vasquez , the attending physician, was present for the procedure and its imaging. MEDICATIONS: Moderate sedati on was achieved with fentanyl IV and Versed IV administered by the radiology nurse under the supervision of Dr. Vasquez. Sedation time was 30 minutes, monitored all times by radiology nursing staff. AEC, mA/Kv adjustment by pat ient size, and/or iterative reconstructive technique were used, per departmental dose-optimization program. TECHNIQUE AND FINDINGS: Informed written consent was obtained. The patient was then brought to the procedure suite, placed in the supine position, and a timeout was performed. Preliminary CT images were obtained with a grid ma rker in place. A safe needle entry pathway was determined. The skin was marked. The patient was then prepped and draped in standard sterile fashion. Maximal sterile barrier precautions were used. Lidoca ine 1% was infiltrated into the subcutaneous soft tissues for local anesthesia. Under CT guidance, a 5-Turkmen 19-gauge sheath needle was advanced into the fluid collection. A small amount of serosanguin eous fluid was removed. A 0. 035 inch short Amplatz wire was advanced. The tract was dilated with 8 and 10-Turkmen dilators. A 10-Turkmen locking loop catheter was advanced over the wire, locking loop form ed in the fluid collection. A total of approximately 300 mL of serosanguineous fluid was aspirated, with a sample sent for analysis. The catheter was secured to the skin with 2-0 Prolene suture. A steri le dressing was applied. A b ag was attached for gravity drainage. The patient appeared to tolerate the procedure well. IMPRESSION: CT-guided placement of 10-Fr ench percutaneous drainage catheter in anterior chest wall fluid collection. Removal of approximately 300 mL of serosanguineous fluid, with a sample sent for analysis. PLAN: Cannot perform sclerotherapy with Betadine as the patient has an iodine allergy. We will proceed with doxycycline sclerotherapy as discussed with Dr. Rivera (500 mg in 25 mL, dwell time of 1 hour). 2018-06-02 EXAM: Chest wo contrast CT [facility] 16:34:00-00:00 DATE: 06/02/2018 16:34 CDT. INDICATION: Chest wall seroma. COMPARISON: CT chest without contrast on 019. TECHNIQUE: Volumetric CT acq uisition of the chest without intravenous contrast. Axial, coronal and sagittal reconstructions. AEC, mA/kV adjustment by pat ient size, and/or iterative reconstruction technique were used, per departmental dose-optimization program. IV contrast: None. DLP: 273 mGy-cm. FINDINGS: Lines and Tubes: Left PICC. Lower Neck: The visible port ions of the lower neck and thyroid are unremarkable. Heart and Great Vessels: The heart size is normal. There is no pericardial effusion. Post-CABG changes are again seen. Lymph Nodes: There is no med iastinal or axillary lymphadenopathy. Evaluation for hilar lymphadenopathy is limited without intravenous contrast. Lungs: The trachea and major bronchi are patent. Small bilateral pleural effusions, right more than left. No focal consolidation or pneumothorax is identified. Upper Abdomen: The visible portions are unremark able. Bones/soft tissues: Interval development of a large, ovoid fluid collection about the midline anterior chest which abuts the sternum. It measures 19.0 cm craniocaudal by 3.7 cm AP by 10.4 cm transverse (sagittal image 99, axial im age 19). There is minimal enhancement along the periphery. The internal fluid is of low attenuation. No significant internal complexity is identified. The degree of sclerosis, pos tsurgical, and destructive change about the sternum is overall similar to 04/05/2018. The remaining visible bones are unremarkable. IMPRESSION: 1. Since 04/05/2018, there h as been interval development of a large, ovoid fluid collection about the anterior chest wall at midline which abuts the sternum. It measures 19.0 x 3.7 x 10.4 cm and demonst rates minimal rim enhancemen t. Findings could represent a seroma, phlegmonous change, or early abscess formation. Further evaluation can be obtained with a US if clinically warranted. 2. Unchanged, markedly irreg ular appearance of the sternum is again concerning for osteomyelitis. Further evaluation can be obtained with a chest MRI if clinically warranted. 3. Since 04/05/2018, there h as been interval development of small BILATERAL pleural effusions, right more than left. 2018-06-02 EXAMINATION: Chest, 2 view, frontal and lateral [facility] 15:55:00-00:00 HISTORY: Shortness of breath; possible presterna l abscess FINDINGS: Frontal and latera l views of the chest are submitted for interpretation without comparison. There is a left-sided periph erally inserted central catheter which terminates near the superior cavoatrial junction. The heart size is normal for There are no pleural effusions or pneumothorax. There is minimal discoid atelectasis within the left lower lung. The lungs are otherwise clear. There is possible anterior soft tissue swelling. Surgical clips project within the inferior anterior mediastinum. IMPRESSION: 1. Minimal discoid atelectas is within the left lower lung with otherwise clear lungs. 2. Possible anterior soft tissue swelling. 3. Left-sided PICC in place, terminating near the superior cavoatrial junction. 2018-05-21 EXAM: Chest 1view DX [facility] 03:00:00-00:00 HISTORY: - Post sternal I\\T\\D w/ ENEDINA COMPARISON: 05/20/2018 IMPRESSION: During overlies the midline. The cardiac silhouette is nonenlarged for portable technique. There are linear atelectatic changes in the lungs. No dense consolidation or effusion. There appears to be a skinfold on the left witho ut definitive pneumothorax. 2018-05-20 EXAM: Chest 1view DX [facility] 07:39:00-00:00 DATE: 05/20/2018 7:39 CDT. INDICATION: Chest pain. COMPARISON: 05/19/2018. TECHNIQUE: AP chest. FINDINGS: Lines, Tubes and Hardware: * Left PICC. * Bilateral mediastinal drains. Lungs and Pleura: * No pneumothorax is identified. * Linear atelectasis about the left lower lobe a nd decrease in the interim. * Mild blunting of the left costophrenic angle. Heart and Mediastinum: The cardiomediastinal laura houette is unchanged. Bones: No acute skeletal abnormality is identifi ed. IMPRESSION: 1. Small LEFT pleural effusion. 2. Decreasing left lower lobe atelectasis. 2018-05-19 Frontal chest radiograph [facility] 03:00:00-00:00 INDICATION: Sternal wound debridement COMPARISON: 05/18/2018 FINDINGS: Heart/mediastinum: normal size no masses LUNGS: Left lower lobe atele ctasis is mildly increased. There is no definite effusion. Support lines/tubes: Unchanged Bone structures: no acute changes Upper Abdomen: unremarkable Impression: Increased left lower lobe atelectasis 2018-05-18 Frontal chest radiograph [facility] 03:00:00-00:00 INDICATION: Sternal wound debridement COMPARISON: 05/17/2018 FINDINGS: Heart/mediastinum: Heart is normal size. LUNGS: Left lower lobe atele ctasis is mildly improved. There may be a trace left effusion. Support lines/tubes: Left PICC line and sternal drains are stable. Bone structures: no acute changes Upper Abdomen: unremarkable Impression: Improved left lower lobe atelectasis 2018-05-17 EXAM: AP CHEST X-RAY [facility] 15:27:00-00:00 DATE: 05/17/2018 15:27 CDT . ORDERING PHYSICIAN: Paige Anand CLINICAL INDICATION: - Post I\\T\\D of chest; TECHNIQUE: SINGLE FRONTAL VIEW OF THE CHEST COMPARISON: 05/16/2017 chest x-ray FINDINGS: Left arm PICC line is in place overlying the upper SVC. There are bilateral paramedian drains overlying the mediastinum. There is linear atelectasis in left lower lobe. This slight blunting of the costophrenic sulci bila terally.. Heart and mediastinal contours are normal.There is no acute bony abnormality. IMPRESSION: No pneumothorax identified status post chest graciela n the Small pleural effusions and left basal atelectas is 2018-05-17 EXAMINATION: Facialseries [facility] 15:27:00-00:00 Indication:62 years Male - s/p fall at midnight COMPARISON: None. FINDINGS:4 views of the face are submitted for interpretation. There is no fracture or dislocation. The bones are well-mineralized. There appears to be opacity in the right maxillary sinus, without defi nite air-fluid level. Mild/m oderate mid cervical degenerative changes are noted. There is leftward nasal septal deviation and spurring, likely nontraumatic. IMPRESSION: 1. Slight density is noted i n the right maxillary sinus, so that opacification cannot be excluded, without evidence of air-fluid level or displaced fracture. If there is further clinical concern, consider face or sinus CT. 2018-05-16 Study: Chest 1view DX 05/16/2018 3:[address] [facility] 03:00:00-00:00 Clinical Indication:62 years Male dyspnea - eval uate for lung sommers ; Comparison: Yesterday Findings: Low lung volumes m ay limit evaluation and accentuates pulmonary vasculature. Left PICC catheter tip overlies the atrial caval junction. Heart size is within normal limits. Interval streaky opa [place] in the left lung base, probably due to subsegmental atelectasis. There is no evidence of pneumothorax, effusion, or mercedes consolidation. No acute osseus pathology. Impression: Interval left basilar subsegmental atelectasis w ith low lung volumes. 2018-05-15 Frontal chest radiograph [facility] 03:00:00-00:00 INDICATION: Dyspnea COMPARISON: 05/14/2018 FINDINGS: Heart/mediastinum: normal size no masses LUNGS: There is improving left basal atelectasis . There is no effusion. Support lines/tubes: Left PICC line is stable. Bone structures: no acute changes Upper Abdomen: unremarkable Impression: Improving left basal atelectasis 2018-05-14 Frontal chest radiograph [facility] 03:00:00-00:00 INDICATION: Sternal wound debridement COMPARISON: 05/13/2018 FINDINGS: Heart/mediastinum: normal size no masses LUNGS: Platelike atelectasis is again seen in the lower left lung field. There is no effusion or consolidation. Support lines/tubes: Left PICC line is stable Bone structures: no acute changes Upper Abdomen: unremarkable Impression: No interval change 2018-05-13 EXAM: XR CHEST 1 VIEW [facility] 03:00:00-00:00 DATE: 05/13/2018 3:00 CDT INDICATION: pre op testing - evaluate lung field s COMPARISON: 05/09/2018 TECHNIQUE: Frontal chest radiograph FINDINGS/IMPRESSION: Platelike atelectasis is again seen in the left lower lung. The lungs are otherwise clear. A left-sided PICC line remains in place. There is no new abnormality. 2018-05-09 CLINICAL HISTORY: Line Place ment - Chest 1 view for Picc line placement [facility] 17:53:00-00:00 AGE: 62 years GENDER: Male TECHNIQUE: Single AP, portable chest radiograph, 1 view. COMPARISON: 03/01/2018 FINDINGS: Rotated exam. The cardiomediastinal silhouette demonstrates no rmal heart size. No focal airspace or interst itial opacities are seen. No pleural effusions. No pneumothorax. LeftPICC line with its tip in the cavoatrial katiuska ction. No significant osseous abnormalities are identif ied. IMPRESSION: Left PICC line with its tip in the cavoatrial ju nction. No acute cardiopulmonary disease. 2018-04-05 Indication: Lung nodules. Osteomyelitis [facility] 15:20:00-00:00 COMPARISON: Radiograph 03/01 and computed tomography scan 02/28/2018 and 02/13/2018 [facility] Contrast: None Radiation dose: DLP 579 mGy/cm TECHNIQUE: Helical acquisiti on of the chest was obtained from the lung apices to the diaphragm. Axial, sagittal and coronal images MPR were interpreted. This exam was performed according to our departme nt dose optimization [facility], which includes automated exposure control, adjustment of the mA and/or kV according to patient size and/or use of iterative reconstruction technique. FINDINGS: HEART: Postoperative changes again seen from coronary artery bypass graft with removal of the sternal wires. There is minor pericardial thickening is unchanged. There is no pericardial effusion. LUNGS: A trace left pleural effusion is present. There is minor atelectasis in the posterior sulcus bilaterally. Scarring is again seen within the lingula. There are calcified granulomas. No active infiltrates or suspicious masses are seen. Mediastinal vessels: Grossly unremarkable Airway: Unremarkable Esophagus: Unremarkable Adenopathy: There are a few prominent precarinal lymph nodes. There is some prominence of the axillary lymph nodes as well. These are probably reactive related to the inflammatory changes of the sternum. Upper abdominal organs: No acute findings Bone structures: Soft tissue induration is identified of the sternotomy. There is osteolytic change of the sternotomy which is progressed in the interval. There is no focal chest wall abscess identified. IMPRESSION: 1. Sternal wound infection w ith progressive osteomyelitis of the sternum compared to the prior exam. There is no soft tissue abscess appreciated. Mild reactive adenopathy is seen within the mediastinum and axillary regions. 2. Postoperative changes fro m coronary artery bypass graft. There is stable mild pericardial thickening could represent reactive pericarditis. 2018-03-01 EXAM: PA AND LATERAL CHEST X RAY [facility] 07:19:00-00:00 DATE:- 03/01/2018 7:19 [employer] . ORDERING PHYSICIAN: Hector Ahuja MD CLINICAL INDICATION: - follow up film; TECHNIQUE: PA and lateral views of chest COMPARISON: 02/28/2018 chest x-ray, chest CT of 02/28/2018 FINDINGS: Left arm PICC line tip remains in good position. The lungs are well inflated. There are linear opacities in the left lower lobe. There is blunting of the posterior costophrenic sulci bilateral ly.. Heart size and mediasti nal contours are normal. There is no acute bony abnormality. Osteopenic, kyphotic thoracic spine with multiple chronic compression deformities is again noted. IMPRESSION: Stable bilateral pleural effusions Linear atelectasis or scarring in the lingula 2018-02-28 EXAM: [facility] 02:26:00-00:00 CT chest angiogram with contrast. INDICATION: Shortness of breath. TECHNIQUE: Helical acquisiti on of the chest was obtained from the lung apices to the diaphragm following intravenous contrast Omnipaque 300 90 cc using the pulmonary embolism protocol. Axial, sagittal a nd coronal images MPR were i nterpreted. Three-dimensional rotational MIP images of the pulmonary vessels were created. This exam was performed according to our department dose optimization protocol, [facility] ch includes automated exposu re control, adjustment of the mA and/or kV according to patient size and/or use of iterative reconstruction technique. DLP 726 mGy/cm COMPARISON: 02/13/2018 FINDINGS: Pulmonary arteries: Normal c ontrast opacification without evidence for pulmonary embolism. Thoracic aorta: Normal caliber without evidence for obvious dissection Heart: There is postoperativ e change from coronary artery bypass graft. Heart is normal in size and appearance otherwise. Mediastinum: There is no yaneli nopathy. The sternal wires been removed in the interval. There is a calcified tubular structure in the anterior mediastinum possibly a severely calcified bypass graft. Tracheobronchial tree: Unremarkable Lungs: There are moderate bi lateral effusions. Atelectasis is present within the lower lobes and lingula. Esophagus: Unremarkable Upper abdomen: No acute findings Bones: No acute findings IMPRESSION: 1. No evidence for pulmonary embolism. 2. Moderate bilateral pleura l effusions with lingular and lower lobe atelectasis. 3. Postoperative changes fro m coronary artery bypass graft with interval removal of the sternal wires. 2018-02-28 Indication: Dyspnea [facility] 02:24:00-00:00 COMPARISON: 02/27/2018 Findings/impression: Portabl e chest radiograph demonstrates prominent heart size although is stable. Lungs are clear. Left PICC line is stable. 2018-02-27 Clinical Indication: - dyspn ea 'gurgling', on abx for osteomyelitis to sternum, on IV vanco; shortness of breath, back pain. [facility] 21:24:00-00:00 Comparison: Prior radiograph dated 02/15/2018. FINDINGS: The portable AP single view radiograph provided for review. Left arm PICC line with its tip terminating in the region of superior vena cava. The exam demonstrates limite d decreased lung volumes without dense airspace consolidation, large pleural effusion or detectable pneumothorax. Near-complete resolution of left basilar atelectasis. The heart size and pulmonary vasculature are nor mal. The trachea is midline. There are no clinically significant osseous abno rmalities noted. IMPRESSION: No chest radiographic evidence of acute cardiopu lmonary disease. SL: NANCY 2018-02-15 HISTORY: Line Placement - Chest 1 view for line placement [facility] 11:36:00-00:00 TECHNIQUE: Single AP view of the chest at 11:43. COMPARISON: Study dated 02/14/2018. FINDINGS/IMPRESSION: Evaluat ion is somewhat limited secondary to exclusion of the right costophrenic angle. 1. Interval placement of lef t PICC with the catheter tip projecting over the SVC. 2. Linear airspace opacities are again seen at the left lung base which are favored to represent atelectasis. There is no focal consolidation, pleural effusion, or evidence of pneumothorax. [id number] 2018-02-14 EXAM: [facility] 17:46:00-00:00 Chest x-ray, 1 view(s). CLINICAL HX: post op - evaluate for lung sommers. Known infect ion. Age: 62 years. Gender: Male. COMPARISON: Chest x-ray: Yesterday. IMPRESSION: 1. Support apparatus: Interval removal of sterno jose wires. 2. Mild left basilar, retroc ardiac airspace opacity which may represent atelectasis or atypical infectious process/pneumonia. 3. No pneumothorax. 2018-02-13 CLINICAL HISTORY: Shortness of Breath - sternal wound infection [facility] 16:35:00-00:00 AGE: 62 years GENDER: Male TECHNIQUE: Noncontrast CT of the chest was performed. Multiplanar reconstructions were reviewed. Please note lack of IV contrast limits evaluation of solid organ pathology and lymphadenopathy. AEC, mA / kV adjustment by patient siz e, and/or iterative reconstructive technique were used, per departmental dose-optimization program. DLP: 474.2 mGy-cm COMPARISON: Chest radiograph 02/13/2018 FINDINGS: Postoperative changes from m edian sternotomy and coronary artery bypass graft with vascular stent in the anterior mediastinum. There is no significant osseous bridging between sternotomy fracture line. Mild cortical irregularity a nd indistinctness of the sternum at the level of the 3rd rib is noted. In addition, mild cortical indistinctness is noted in the manubrium at the sternomanubrial junction. Fi ndings raise the question of acute osteomyelitis. Alternatively, this may represent subchondral cyst formation and reactive marrow change from nonunion of median sternotomy and resultant abnormal motion , particularly if sternotomy was performed remotely.Moderate inflammatory change in the anterior mediastinum without discrete CT evidence of loculated fluid collection on this noncontrast examination. Limited views of the upper abdomen are unremarka ble. Scarring in the lingular. Ca lcified granuloma in the left upper lobe. No pleural effusions. No suspicious pulmonary nodules or masses are identified. The visualized osseous structures are unremarkab le. IMPRESSION: No significant osseous bridg ing between the sternum at the sternotomy site. There is mild cortical irregularity and indistinctness of the sternum at the level of the 3rd rib. Mild cortical indistinctnes s is also noted in the manub rium at the sternomanubrial junction. A component of this erosive change may be secondary to sternal nonunion, pseudoarthrosis and intraosseous cyst formation. Given underlyi ng inflammatory change in th e anterior mediastinum, superimposed acute osteomyelitis cannot be entirely excluded. Consider further evaluation with pre and postcontrast magnetic resonance imaging or three-phase bone scan for further characterization. No discrete CT evidence of a nterior mediastinal abscess on this noncontrast examination. 2018-02-13 HISTORY: shortness of breath - evaluate for lung sommers [facility] 15:59:00-00:00 TECHNIQUE: Single AP view of the chest at 16:32. COMPARISON: None available. FINDINGS/IMPRESSION: Changes from prior sternotomy are seen. No radiographic evidence of acute cardiopulmonary disease. [id number]
[2022-08-31 13:40] LABS: Hematocrit 47.6 % (39.6-49.0); Lymphocytes % 16.8 % (15.3-44.8); MCV 94.3 fL (80-100); MPV 8.7 fL (7.6-11.3); RBC Red Blood Cell Count 5.05 M/uL (4.33-5.43)
[2022-08-31 13:46] LABS: Protime INR 0.82
[2022-08-31 14:01] LABS: Albumin 3.4 g/dL (3.4-5.0); Bilirubin Direct 0.1 mg/dL (0-0.2); Bilirubin Indirect, Calculated 0.4 mg/dL (0.2-0.8); Bilirubin Total 0.5 mg/dL (0.2-1.0); Potassium 4.1 mEq/L (3.5-5.1); Protein, Total 7.4 g/dL (6.4-8.2); Troponin High Sensitivity 5.5 pg/mL (<58.9)
--- NOTE | 2022-08-31 14:31 | RAD REPORT ---
EXAM DESCRIPTION: US - Upper Ext Artery Bilateral - 08/31/2022 2:01 pm CLINICAL HISTORY: arms COMPARISON: Extremity [facility]ous [facility] dated 10/25/2020 TECHNIQUE: Bilateral upper extremity arterial Doppler examination was performed with jhoana lerner FINDINGS: [id number] atherosclerotic calcific plaque most pronounced along the radial arteries bilaterall y. Triphasic waveforms are seen throughout both upper extremity arterial systems to the level of the bra chial arteries. Biphasic to monophasic flow seen along the right ulnar and radial arteries. Triphasic to biphasic yin w seen along the left ulnar and radial arteries. IMPRESSION: Mild peripheral vascular disease along the distal upper extremities, worse on the right.
--- NOTE | 2022-08-31 14:58 | RAD REPORT ---
EXAM DESCRIPTION: CT - Chest Abd Pelvis Wo Con - 08/31/2022 2:04 pm CLINICAL HISTORY: Blood pressure discrepancy between the upper extremities. DISSECTION COMPARISON: [facility] Protocol dated 08/15/2018 TECHNIQUE: Thin axial CT images of the chest, abdomen, pelvis, performed without IV contrast. Multip lanar reformats were generated and reviewed. All CT scans are performed using dose optimization technique as appropriate and may include automated exposure control or mA/KV adjustment according to patient size. FINDINGS: Aorta is normal in caliber throughout. Normal three-vessel arch configuration. Mild athero sclerotic calcifications at the aortic annulus, arch, and throughout the abdominal aorta. No hyperatt enuating mural hematoma or aneurysmal dilation. Left lingular atelectasis. 4 millimeter calcified granuloma in the left lingula may be new since 2019 .Mild reticular peripheral opacities in the anterior right basal lower lobe and right middle lobe. Th benson are likely related to atelectasis, possibly mild bronchiolitis.No pleural or pericardial effusion .No intrathoracic adenopathy. Sequelae of prior median sternotomy and probable CABG. The liver, spleen, pancreas, adrenal glands and kidneys are within normal limits. Small calcified st ones present dependently in the gallbladder neck. No bowel obstruction, free air, free fluid or abscess. Nonspecific fluid filling within small-bowel l oops in the left flank, may relate to mild enteritis or diarrheal state Normal appendix. No patholog ic lymphadenopathy in the abdomen or pelvis. No worrisome osseous finding. IMPRESSION: No acute or suspicious abnormalities of the aorta on noncontrast CT. Mild reticular peripheral opacities in the right basal lower lobe and right middle lobe, may relate t o atelectasis or mild bronchiolitis. Cholelithiasis. Nonspecific fluid filling within small bowel loops in the left flank, may relate to mild enteritis or diarrheal state.
--- NOTE | 2022-08-31 15:37 | RAD REPORT ---
EXAM DESCRIPTION: Erint Single View08/31/2022 2:13 pm CLINICAL HISTORY: CHEST PAIN COMPARISON: Chest Single View dated 11/20/2021; Chest Single View dated 08/15/2018; Chest Single View dated 01/14/2018; Chest Single View dated 01/09/2018 TECHNIQUE: Portable AP view of the chest. FINDINGS: The lungs are clear. Stable left basilar atelectasis. No pneumothorax or effusion. The ca rdiomediastinal contours are unremarkable. IMPRESSION: No acute cardiopulmonary process.
--- NOTE | 2022-08-31 15:46 | EDPHYS ---
Physician Documentation [facility] Name: Fred Hardy Age: 66 yrs Sex: Male : 1955 Arrival Date: 08/31/2022 Time: 13:01 Bed 8 Private MD: ED Physician Ulisses Hinton HPI: 08/31 14:18 This 66 yrs old Male presents to ER via Ambulatory with complaints of BLOOD PRESSURE rn ISSUE. 14:18 The patient has elevated blood pressure and discovered this at home. Onset: The rn symptoms/episode began/occurred at an unknown time. Modifying factors:. Severity of symptoms: At its worst the blood pressure was moderate. The patient has not experienced similar symptoms in the past. Pt told to come here by his PCP after he called them and told them he was getting 2 different BP readings in his arms. Pt denies chest pain. REports intermittent sob. No cough. No fever. NO abd pain. BP here equal bilaterally. . Historical: - Allergies: 13:19 IV contrast; nj1 13:19 PENICILLINS; nj1 - PMHx: 13:19 Hyperlipidemia; Hypertension; Myocardial infarction; Transient cerebral ischemia; nj1 Coronary atherosclerosis; - PSHx: 13:19 Coronary artery bypass graft; Coronary Angioplasty; Umbilical hernia repair; nj1 - Immunization history:: Client reports having NOT received the Covid vaccine. - Social history:: Smoking status: Patient/guardian denies using tobacco, the patient reports quitting approximately 5 years ago. - Family history:: not pertinent. - Hospitalizations: : No recent hospitalization is reported. ROS: 14:18 Constitutional: Negative for fever, chills, and weight loss, Neck: Negative for injury, rn pain, and swelling, Cardiovascular: Negative for chest pain, palpitations, and edema, Respiratory: Negative for cough, wheezing, and pleuritic chest pain, Abdomen/GI: Negative for abdominal pain, nausea, vomiting, diarrhea, and constipation, Back: Negative for injury and pain, MS/Extremity: Negative for injury and deformity, Skin: Negative for injury, rash, and discoloration, Neuro: Negative for headache, weakness, numbness, tingling, and seizure. Exam: 14:18 Constitutional: This is a well developed, well nourished patient who is awake, alert, rn and in no acute distress. Sitting comfortably with legs crossed Head/Face: Normocephalic, atraumatic. Neck: Trachea midline, no masses palpated, and no cervical lymphadenopathy. Supple, full range of motion without nuchal rigidity, or vertebral point tenderness. No Meningismus. Cardiovascular: Regular rate and rhythm. No pulse deficits. Respiratory: No increased work of breathing, no retractions or nasal flaring. Abdomen/GI: Soft, non-tender Skin: Warm, dry MS/ Extremity: Pulses equal, no cyanosis. Neuro: Awake and alert, GCS 15, oriented to person, place, time, and situation. Cranial nerves II-XII grossly intact. Motor strength 5/5 in all extremities. Sensory grossly intact. Cerebellar exam normal. Normal gait. 14:23 ECG was reviewed by the Attending Physician. rn Vital Signs: 13:11 BP 135 / 87 RA; Pulse 73; Resp 18; Temp 98.1(O); Pulse Ox 97% on R/A; Weight 88.9 kg; nj1 Height 6 ft. 0 in. ; Pain 1/10; 14:33 BP 114 / 80; Pulse 63; Resp 16; Pulse Ox 96% on R/A; iw 15:13 BP 100 / 80; Pulse 63; Resp 16; Pulse Ox 98% on R/A; iw 13:11 Body Mass Index 26.58 (88.90 kg, 182.88 cm) nj1 13:11 Pain Scale: Adult nj1 MDM: 13:06 Patient medically screened. rn 15:43 Differential diagnosis: hypertensive crisis, aortic dissection, PAD, AMI. Data rn reviewed: vital signs, nurses notes, lab test result(s), radiologic studies, CT scan, plain films, and as a result, I will discharge patient. Counseling: I had a detailed discussion with the patient and/or guardian regarding: the historical points, exam findings, and any diagnostic results supporting the discharge/admit diagnosis, lab results, radiology results, the need for outpatient follow up, to return to the emergency department if symptoms worsen or persist or if there are any questions or concerns that arise at home. Special discussion: I discussed with the patient/guardian in detail that at this point there is no indication for admission to the hospital. It is understood, however, that if the symptoms persist or worsen the patient needs to return immediately for re-evaluation. ED course: CT CAP neg for acute aortic problems, stable vitals, neg trop, will dc home with return precautions. Pt reports cough and possible interstitial process on CT chest, will dc home with abx. . 08/31 13:19 Order name: Basic Metabolic Panel; Complete Time: 14:16 rn 08/31 13:19 Order name: CBC with Diff; Complete Time: 14:16 rn 08/31 13:19 Order name: LFT's; Complete Time: 14:16 rn 08/31 13:19 Order name: NT PRO-BNP; Complete Time: 14:16 rn 08/31 13:19 Order name: PT-INR; Complete Time: 14:16 rn 08/31 13:19 Order name: Troponin HS; Complete Time: 14:16 rn 08/31 13:19 Order name: XRAY Chest (1 view); Complete Time: 15:39 rn 08/31 13:19 Order name: CT Chest Abdomen Pelvis W/O Contrast; Complete Time: 15:37 rn 08/31 13:29 Order name: Upper Ext Artery Bilateral; Complete Time: 14:48 EDMS 08/31 13:19 Order name: EKG; Complete Time: 13:19 rn 08/31 13:19 Order name: Cardiac monitoring; Complete Time: 13:35 rn 08/31 13:19 Order name: EKG - Nurse/Tech; Complete Time: 13:35 rn 08/31 13:19 Order name: IV Saline Lock; Complete Time: 13:35 rn 08/31 13:19 Order name: Labs collected and sent; Complete Time: 13:35 rn 08/31 13:19 Order name: O2 Per Protocol; Complete Time: 13:35 rn 08/31 13:19 Order name: O2 Sat Monitoring; Complete Time: 13:35 rn EC:23 Rate is 63 beats/min. Rhythm is regular. QRS [place] is Normal. OR interval is normal. QRS rn interval is normal. QT interval is normal. No Q waves. T waves are Normal. No ST changes noted. Clinical impression: NSR w/ Non-specific ST/T Changes. Interpreted by me. Reviewed by me. Administered Medications: No medications were administered Disposition Summary: 08/31/22 15:45 Discharge Ordered Location: Home rn Problem: new rn Symptoms: have improved rn Condition: Stable rn Diagnosis - Essential (primary) hypertension rn - Cough rn - Peripheral vascular disease, unspecified rn Followup: rn - With: Private Physician - When: As needed - Reason: Recheck today's complaints, Re-evaluation by your physician Discharge Instructions: - Discharge Summary Sheet rn - Hypertension, Adult rn - How to Take Your Blood Pressure, [place] rn - Managing Your Hypertension rn Forms: - Medication Reconciliation Form rn - Thank You Letter rn - Antibiotic patent prosecution attorney - Prescription Opioid Use rn - [email or web address] rn Prescriptions: - Zithromax Z-Elio 250 mg Oral Tablet - take 1 tablet by ORAL route as directed for 5 days Day 1 - take two (2) tablets rn one time. Day 2, 3, 4 , 5 take one (1) tablet once daily.; 6 tablet; Refills: 0, Product Selection Permitted Signatures: Dispatcher [employer] Ulisses Goode MD MD rn Jaco, Norma, RN RN nj1 Corrections: (The following items were deleted from the chart) 13:29 13:19 Lower Extremity Arterial Bilat+[email or web address].RAD.BRZ ordered. EDPR EDMS
--- NOTE | 2022-08-31 15:46 | ER ---
Nurse's Notes [facility] Name: Fred Hardy Age: 66 yrs Sex: Male : 1955 Arrival Date: 08/31/2022 Time: 13:01 Bed 8 Private MD: Diagnosis: Essential (primary) hypertension;Cough;Peripheral vascular disease, unspecified Presentation: 08/31 13:11 Chief complaint: Chief complaint: Patient states: Blood pressure readings nj1 discrepancies, left arm lower than right arm. Today, right arm reading was lower to left one. Coronavirus screen: Vaccine status: Patient reports being unvaccinated. Ebola Screen: Patient denies travel to an Ebola-affected area in the 21 days before illness onset. Initial Sepsis Screen: Does the patient meet any 2 criteria? No. Patient's initial sepsis screen is negative. Does the patient have a suspected source of infection? No. Patient's initial sepsis screen is negative. Risk Assessment: Do you want to hurt yourself or someone else? Patient reports no desire to harm self or others. Onset of symptoms was August 21, 2022. 13:11 Method Of Arrival: Ambulatory nj1 13:11 Acuity: JOSÉ MIGUEL 3 nj1 Historical: - Allergies: 13:19 IV contrast; nj1 13:19 PENICILLINS; nj1 - PMHx: 13:19 Hyperlipidemia; Hypertension; Myocardial infarction; Transient cerebral ischemia; nj1 Coronary atherosclerosis; - PSHx: 13:19 Coronary artery bypass graft; Coronary Angioplasty; Umbilical hernia repair; nj1 - Immunization history:: Client reports having NOT received the Covid vaccine. - Social history:: Smoking status: Patient/guardian denies using tobacco, the patient reports quitting approximately 5 years ago. - Family history:: not pertinent. - Hospitalizations: : No recent hospitalization is reported. Screenin:35 [facility] ED Fall Risk Assessment (Adult) Score/Fall Risk Level 0 - 2 = Low Risk. Abuse iw screen: Denies threats or abuse. Denies injuries from another. Nutritional screening: No deficits noted. Tuberculosis screening: No symptoms or risk factors identified. Assessment: 13:34 General: Appears in no apparent distress. Behavior is calm, cooperative. Pain: Denies iw pain. Neuro: Level of Consciousness is awake, alert, obeys commands. Cardiovascular: Reports palpitations, shortness of breath, Capillary refill < 3 seconds in bilateral fingers Patient's skin is warm and dry. Respiratory: Reports shortness of breath Respiratory effort is even, unlabored, Respiratory pattern is regular. Derm: Skin is intact, is healthy with good turgor. 14:33 Reassessment: Patient appears in no apparent distress at this time. Patient and/or iw family updated on plan of care and expected duration. Pain level reassessed. Patient is alert, oriented x 3, equal unlabored respirations, skin warm/dry/pink. 15:38 Reassessment: Patient appears in no apparent distress at this time. Patient and/or iw family updated on plan of care and expected duration. Pain level reassessed. Patient is alert, oriented x 3, equal unlabored respirations, skin warm/dry/pink. Vital Signs: 13:11 BP 135 / 87 RA; Pulse 73; Resp 18; Temp 98.1(O); Pulse Ox 97% on R/A; Weight 88.9 kg; nj1 Height 6 ft. 0 in. ; Pain 1/10; 14:33 BP 114 / 80; Pulse 63; Resp 16; Pulse Ox 96% on R/A; iw 15:13 BP 100 / 80; Pulse 63; Resp 16; Pulse Ox 98% on R/A; iw 13:11 Body Mass Index 26.58 (88.90 kg, 182.88 cm) nj1 13:11 Pain Scale: Adult nj ED Course: 13:05 Patient arrived in ED. im 13:06 Ulisses Hinton MD is Attending Physician. rn 13:18 Triage completed. nj1 13:20 Arm band placed on right wrist. nj1 13:35 Initial lab(s) drawn, by wa, sent to lab. Inserted saline lock: 20 gauge in right iw forearm, using aseptic technique. Blood collected. 13:42 Danielle Reddy, RN is Primary Nurse. iw 14:03 Upper Ext Artery Bilateral In Process Unspecified. EDMS 14:06 CT Chest Abdomen Pelvis W/O Contrast In Process Unspecified. EDMS 14:15 XRAY Chest (1 view) In Process Unspecified. EDMS 16:01 Patient has correct armband on for positive identification. iw 16:01 No provider procedures requiring assistance completed. IV discontinued, intact, iw bleeding controlled, No redness/swelling at site. Pressure dressing applied. Administered Medications: No medications were administered Medication: 13:35 VIS not applicable for this client. iw Outcome: 15:45 Discharge ordered by . rn 16:01 Discharged to home ambulatory. iw 16:01 Condition: good 16:01 Discharge instructions given to patient, Instructed on discharge instructions, follow up and referral plans. medication usage, Demonstrated understanding of instructions, follow-up care, medications, Prescriptions given X 1. 16:01 Patient left the ED. iw Signatures: Dispatcher [employer] EDMS Danielle Reddy RN RN Ulisses Hinton MD MD rn Calderon, Audri, RN RN aa5 Cassie Monterroso RN RN nj1 Christine Deluna Corrections: (The following items were deleted from the chart) 13:42 13:23 Arleth Peck, RN is Primary Nurse. aa5 aa5
[2022-08-31 16:06] VITALS: TEMP 98.1
[2022-08-31 16:10] VITALS: BP 100/80; O2SAT 98
--- NOTE | 2022-09-01 08:50 | EKG ---
Test Date: 2022-08-31 Test Time: 13:30:38 [employer]: [employer]AL[place] MEASUREMENT RESULTS: Intervals: Rate: 63 ND: 184 QRSD: 78 QT: 404 QTc: 413 [place]: P: 46 ND: 184 QRS: 62 T: 60 INTERPRETIVE STATEMENTS: Normal sinus rhythm with sinus arrhythmia Inferior infarct, age undetermined Abnormal ECG Compared to ECG 11/20/2021 16:54:16 Left ventricular hypertrophy no longer present Myocardial infarct finding still present Electronically Signed On 09-01-22 08:47:56 CDT by Nishant Perez
== END 2022-08-31 16:01 | disposition home or self-care (01) ==
LOC: ER 13:01
DX: I10 Essential (primary) hypertension (principal); R05.9 Cough, unspecified; I73.9 Peripheral vascular disease, unspecified; I25.2 Old myocardial infarction; Z95.1 Presence of aortocoronary bypass graft; Z88.0 Allergy status to penicillin; Z91.041 Radiographic dye allergy status
CPT/HCPCS: 36415; 71045; 71250; 74176; 80048; 80076; 83880; 84484; 85025; 85610; 93005; 93930; 99284

== ENCOUNTER 2022-10-19 19:53 | Emergency (ER) | payer OTHER ==
--- OUTSIDE RECORDS SUMMARY | 2022-10-19 20:21 | XMS REPORT | Continuity of Care Document ---
:1955 Author Organization [facility] t Address [address] [facility] [address] [place] [address] Care Team Providers Name Role Phone Sharpless Primary Care Physician Jamal Red Attending Clinician Unavailable PABLO ALLEN Attending Clinician Unavailable VERITO BAILEY Attending Clinician Unavailable Pablo Allen DO Attending Clinician LAB90 Attending Clinician Unavailable KEYONA SUAZO Attending Clinician Unavailable KEYONA SUAZO Attending Clinician Unavailable Doctor Unassigned, [place] Attending Clinician Unavailable JD HINES Attending Clinician Unavailable Sami RUSSO Mahesheva Don Attending Clinician LUCITA CARBAJAL Attending Clinician Unavailable Tin KNUTSON, Jd Attending Clinician Denny Del Real Primary Attending Clinician Unavailable Amrik ERICKSON, Arsen Attending Clinician ARSEN DIXON Attending Clinician Unavailable Sofia Gatica Attending Clinician [phone] Salome KNUTSON, Edin Ovalles Attending Clinician [...] Expiration Date Eva FERREIRA MA DUAL 7 [id number] 2022 COMPLETE CAP(HMO 00:00:00 D-SNP OA) HU[employer] MEDICARE 7 [id number] 2021 [id number] GOLD 00:00:00 PLUS 2021 HUMANA 3 [id number] 2021 00:00:00 MEDICAID OF [place] [id number] 2021 00:00:00 [place] [facility] [id number] 2019 CARE 00:00:00 Problems Condition Condition Condition [...] TIS Active 00:00: Arsenio freedman 08/15/2018 00 [facility] ABDOMINAL ABDOMINAL Diagnosis Active 2018-08-16 Memoria PAIN PAIN 6-13 02:35:00 l Active 00:00: [place] 08/15/2018 00 [facility] BLAYNE-SEROMA BLAYNE-SEROMA Diagnosis Active 2018-06-21 Memoria Active 4-16 10:59:00 l 06/18/2018 00:00: Arsenio freedman [address] CHEST PAIN CHEST Diagnosis Active 2018-06-03 Memoria PAIN 3-31 15:02:00 l Active 00:00: [place] 06/02/2018 00 [facility] STERNAL STERNAL Diagnosis Active 2018-05-19 Memoria OSTEOMYELI OSTEOMYELI 3-07 06:57:00 l TIS TIS 00:00: [place] Active 00 05/09/2018 [facility] M86.61 - M86.61 - Diagnosis Active 2018-04-08 Memoria OTHER OTHER 2- 13:48:00 l CHRONIC CHRONIC 00:01: [place] OSTEOMYELI OSTEOMYELI 00 TIS, S TIS, S Active 04/05/2018 [facility] ACUTE ACUTE Diagnosis Active 2017-032018-03-07 Mem oria EXACERBATI EXACERBATI 04-30 22:14:00 l ON OF ON OF 00:00: [place] CONGESTIVE CONGESTIVE 00 HEART F HEART F Active 02/27/2018 [facility] SHORTNESS SHORTNESS Diagnosis Active 2017-032018-02-28 Memoria OF BREATH OF BREATH 04-30 03:46:00 l Active 00:00: Arsenio n [address] DIFFICULTY DIFFICULT Diagnosis Active 2017-032018-02-27 Memoria BREATHING Y 04-30 23:09:00 l BREATHING 00:00: [place] Active 02/27/2018 [facility] SOB, SOB, Diagnosis Active 2017-032018-02-28 Mem oria TACHYCARDI TACHYCARDI 04-16 22:16:00 l A A Active 00:00: Seymour 02/13/[address] [place] [address] Dyspnea Dyspnea Disease Active 2017-03 Univers 1-12 ity of 00:00: [place] [address] Medical Branch Other Other Disease Active 2017-03 Univers chest pain chest pain 1-08 it y of 00:00: [place] [address] Medical Branch Cellulitis Cellulitis Disease Active 2017-03 U nivers of chest of chest 1-07 ity of wall wall 00:00: [place] [address] Medical Branch Elevated Elevated Disease Active 2017-03 Unive rs total total 0-10 ity of protein protein 00:00: [place] [address] Medical Branch GELY GELY Disease Active Univers (obstructi (obstructi 9-17 it y of ve sleep ve sleep 00:00: [place] apnea) apnea) 00 Medical Branch Acute on Acute on Disease Active Unive rs chronic chronic 9-17 [place] of diastolic diastolic [place] congest[place] congestive 00 Me dical heart heart Branch failure failure Weakness Weakness Disease Active Unive rs 9-16 ity of 00:00: [place] [address] Medical Branch SOB SOB Disease Active Univers [...] disease of disease of 00:00: automatic [place] wiyot wiyot 00 ally from Medical artery of artery of request [facility] wiyot wiyot for heart with heart with surgery stable stable [id number] 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 angina angina Added pectoris pectoris automatic ally from request for surgery [id number] Coronary Coronary Disease Active Overview: Un jody artery artery 8-24 Added ity of disease disease 00:00: automatic [place] involving involving 00 ally from M edical wiyot wiyot request Branch coronary coronary for artery of artery of surgery wiyot wiyot [id number] heart with heart with other form other form of angina of angina pectoris pectoris Coronary Coronary Disease Active Overview: Un jody artery artery 8-24 Formattin ity of disease disease 00:00: g of this [place] involving involving 00 note Medi tenzin wiyot wiyot might be Branch coronary coronary different artery of artery of from the wiyot wiyot original. heart with heart with Added other form other form automatic of angina of angina ally from pectoris pectoris request for surgery [id number] Umbilical Umbilical Disease Active Overview: Univers hernia hernia 6-05 Formattin ity of without without 00:00: g of this [place] obstructio obstructio 00 note Me dical n and n and might be Branch without without different gangrene gangrene from the original. Added automatic ally from request for surgery [id number] Prediabete Prediabete Disease Active U nivers s [...] use 4-10 ity of disorder disorder 00:00: [place] 00 Medical Branch Sleep Sleep Disease Active Univers disorder disorder 4-10 it[place] of breathing breathing 00:[place] 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 (dyspnea (dyspnea 4-10 ity of on on 00:00: [place] exertion) exertion) 00 [facility] tenzin Branch CVA CVA Disease Active [facility] [...] of lung field lung field 9 [facility] Infection Infection Problem 2018-10-24 Memoria following following 11:25:49 l a a [place] procedure, procedure, other other surgical surgical site, site, initial initial encounter encounter 10/24/2018 [facility] Localized Localized Problem 2018-10-24 Memoria enlarged enlarged 11:25:49 l lymph lymph [place] nodes nodes 10/24/2018 [facility] Other Other Problem 2018-10-24 Memor ia specified specified 11:25:49 l postproced postproced He rmann ural ural states states 10/24/2018 [facility] Presence Presence Problem 2018-10-24 Memoria of of 11:25:49 l aortocoron aortocoron He rmann juana bypass juana bypass graft graft 10/24/2018 Bradley Drew [facility] Fluid Fluid Problem 2018-09-17 Memor ia overload, overload, 12:21:37 l unspecifie unspecifie He rmann d d 09/17/2018 [facility] Erythemato Erythemat Problem 2018-09-17 Memoria us ous 12:21:37 l condition, condition, He rmann unspecifie unspecifie d d 09/17/2018 [facility] Allergy Allergy Problem 2018-09-17 Me moria status to status to 12:21:37 l penicillin penicillin He rmann 09/17/2018 [facility] 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) (current) Herm ladi drug drug therapy therapy 09/17/2018 [facility] Family Family Problem 2018-09-17 Kuldeep teto history of history of 12:21:37 l ischemic ischemic Arsenio freedman heart heart disease disease and other and other diseases diseases 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 09/17/2018 [facility] Shortness Shortness Problem 2018-09-18 Memoria of breath of breath 14:04:56 l 09/18/2018 Arsenio freedman [facility] Unspecifie Unspecifi Problem 2018-09-18 Memoria d severe ed severe 14:04:56 l protein-ca protein-ca He rmladi fely geiger malnutriti malnutriti on on 09/18/2018 [facility] Atelectasi Atelectas Problem 2018-09-18 Memoria s is 14:04:56 l 09/18/2018 Arsenio freedman [facility] Osteomyeli Osteomyel Problem 2018-09-18 Memoria tis, itis, 14:04:56 l unspecifie unspecifie He rmann d d 09/18/2018 [facility] Cellulitis Celluliti Problem 2018-09-18 Memoria of chest s of chest 14:04:56 l wall wall [place] 09/18/2018 [facility] Acute on Acute on Problem 2018-09-18 Memoria chronic chronic 14:04:56 l combined combined Arsenio n systolic systolic (congestiv (congestiv e) and e) and diastolic diastolic (congestiv (congestiv e) heart e) heart failure failure 09/18/2018 [facility] Frequency Frequency Problem 2018-09-18 Memoria of of 14:04:56 l micturitio micturitio He rmann n n 09/18/2018 [facility] 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-18 Memoria rotic erotic 14:04:56 l heart heart [place] disease of disease of wiyot wiyot coronary coronary artery artery without without angina angina pectoris pectoris 09/18/2018 Bradley Oliveros [facility] Localized Localized Problem 2018-09-18 Memoria edema edema 14:04:56 l 09/18/2018 Arsenio freedman [facility] Hyperlipid Hyperlipi Problem 2018-09-18 Memoria emia, demia, 14:04:56 l unspecifie unspecifie He rmann d d 09/18/2018 [facility] Ischemic Ischemic Problem 2018-09-18 Memoria cardiomyop cardiomyop 14:04:56 l athy athy [place] 09/18/2018 [facility] Personal Personal Problem 2018-09-18 Memoria history of history of 14:04:56 l nicotine nicotine Arsenio n dependence dependence 09/18/2018 Bradley Oliveros [facility] Radiograph Radiograp Problem 2018-09-18 Memoria ic dye hic dye 14:04:56 l allergy allergy [place] status status 09/18/2018 Bradley Oliveros [facility] Body mass Body mass Problem 2018-09-18 Memoria index index 14:04:56 l (BMI) (BMI) [place] 27.0-27.9, 27.0-27.9, adult adult 09/18/2018 [facility] Acute Acute Problem 2018-09-10 Memor ia posthemorr posthemorr 14:31:25 l pranay pires [place] anemia anemia 09/10/2018 [facility] Essential Problem 2018-09-10 Me moria (primary) Essential 14:31:25 l hypertensi (primary) Her fernandes on hypertensi on 09/10/2018 [facility] Major Major Problem 2018-09-10 Memor ia depressive depressive 14:31:25 l disorder, disorder, Herm ladi single single episode, episode, unspecifie unspecifie d d 09/10/2018 [facility] Anxiety Anxiety Problem 2018-09-10 Me moria disorder, disorder, 14:31:25 l unspecifie unspecifie He rmann d d 09/10/2018 [facility] Insomnia, Insomnia, Problem 2018-09-10 Memoria unspecifie unspecifie 14:31:25 l d d Seymour 09/10/2018 [facility] Constipati Constipat Problem 2018-09-10 Memoria on, ion, 14:31:25 l unspecifie unspecifie He rmann d d 09/10/2018 [facility] Coronary Coronary Problem Active 2018-10-24 Memoria arterioscl arterioscl 11:25:49 l erosis erosis [place] (disorder) (disorder) Active Problem 10/24/2018 [facility], [facility] ILLNESS, ILLNESS, Diagnosis Active 2018-05-19 Memoria UNSPECIFIE UNSPECIFIE 06:57:00 l D D Active Seymour [facility] POSTPROC POSTPROC Diagnosis Active 2018-06-03 Memoria SEROMA OF SEROMA OF 15:02:00 l SKIN, SKIN, [place]our SUBCU SUBCU FOLLOWING FOLLOWING Active [facility] ACUTE ACUTE Diagnosis Active 2018-08-17 Mem oria CHOLECYSTI CHOLECYSTI 09:57:00 l TIS TIS [place] Active [facility] HEART HEART Diagnosis Active 2018-03-07 Mem oria FAILURE, FAILURE, 22:14:00 l UNSPECIFIE UNSPECIFIE He rmann D D Active [facility] History of Past Illness Condition Condition Condition Status Onset Resolution Last Treating Co mments Source Name Details Category Date Date Treatment Clinician Date Other Other Problem 2018-2018-10-24 2018-10-24 M emoria acute acute 2-06 11:25:49 11:25:49 l osteomyeli osteomyeli 06:03: He antonio tis, other tis, other 01 site site 04/10/2018 10/24/2018 [facility] Hypertensi Hypertens Problem 2018-0 2018-09-18 2018-09-18 Memoria ve heart shelia heart 06-26 14:04:56 14:04:56 l disease disease 05:04: [place] with heart with heart 24 failure failure 06/26/2018 09/18/2018 [facility] Allergies, Adverse Reactions, Alerts Allergy Allergy Status Severity Reaction(s) Onset Inactive Treating Comm ents Source Name Type Date Date Clinician Penicill DA Active [facility] ins 06-24 Clear 00:00: Merrill 00 [facility] iodine DA Active [facility] 06-24 Clear 00:00: [place] 00 [facility] Iodine Propensi Active Itching Kaela ty [...] penicill Active Memori a ins ins l [place] penicill penicill Active Memori a in<sup>1 in<sup>1 l </sup> </sup> [place] iodine<s iodine<s Active Memori a up>2</montoya up>2</montoya l p> p> [place] NKFA NKFA Active Memoria l [place] Family History Family Member Diagnosis Comments Start Date Stop Date Source Natural father Stroke [facility] Natural father Diabetes [facility] Natural father Hypertension [facility] Natural mother Diabetes [facility] Natural mother Hypertension [facility] Social History Social Habit Start Date Stop Date Quantity Comments Source History of tobacco Cigarette Smoker [facility] Exposure to Not sure University of SARS-CoV-2 (event) [place] [facility] History SDOH Kaela Raymondo ld Alcohol Frequency History SDOH Kaela Seybo ld Alcohol Std Drinks History SDOH Kaela Seybo ld Alcohol Binge Tobacco use and 2021-05-03 2021-05-03 Smokeless Kaela Se ybold exposure 00:00:00 00:00:00 tobacco non-user Alcohol Comment 2021-05-03 2021-05-03 rarely Kaela Se ybold 00:00:00 00:00:00 Education 2021-05-03 2021-05-03 15 Kaela Johnson 00:00:00 00:00:00 Cigarette 2021-05-03 2021-05-03 Kaela Seybjessica pack-years 00:00:00 00:00:00 Social History 2018-08-16 2018-08-16 [facility] Cintia youssefladi 07:52:22 07:52:22 Alcohol intake 2015-08-28 2015-08-28 Current [facility] 00:00:00 00:00:00 non-drinker of Medical Ce nter alcohol (finding) Cigarettes smoked 2015-08-27 2015-08-27 [facility] current (pack per 00:00:00 00:00:00 Medical Center ) - Reported Sex [birth year] [facility] 00:00:00 00:00:00 [facility] Smoking Status Start Date Stop Date Source Ex-smoker 2021-05-03 00:00:00 2021-05-03 00:00:00 Kaela echols Smokes tobacco daily 2015-08-27 00:00:00 [facility] Medications Ordered Filled Start Stop Current Ordering Indication Dosage Frequency Signature Comments Components Source Medication Medication Date Date Medication? Clinician (SIG) Name Name Lisinopril 2021- No 10mg Take 10 mg Kaela 10 MG oral 3-30 03-30 by mouth Seyb old Tablet 10:39: 00:00 daily 21 :00 Tramadol 2021-0 Yes [id number] 50mg QD Take 1 Ke lsey HCl 50 MG 3-30 tablet (50 Seyb old oral Tablet 00:00: mg total) 00 by mouth daily as needed for pain Lisinopril 2021-0 Yes 10mg Take 10 mg K elsey 10 MG oral 3-01 by mouth Seybo ld Tablet 14:00: daily 07 Escitalopra 0 Yes [id number] 10mg Take 1 Kaela m Oxalate 3-01 tablet (10 Seyb old (Lexapro) 00:00: mg total) 10 MG oral 00 by mouth Tablet daily Aspirin 81 0 Yes [id number] 81mg Take 1 Kaela MG oral 3-01 tablet (81 Seybol d Chewable 00:00: mg total) Tablet 00 by mouth daily Tramadol 2021-0 Yes [id number] 50mg Q24H Take 1 Ke lsey HCl 50 MG 3-01 tablet (50 Seyb old oral Tablet 00:00: mg total) 00 by mouth daily as needed for pain Escitalopra Yes [id number] 10mg Take 1 Kaela m Oxalate 3-01 tablet (10 Seyb old (Lexapro) 00:00: mg total) 10 MG oral 00 by mouth Tablet daily Aspirin 81 0 Yes [id number] 81mg Take 1 Kaela MG oral 3-01 tablet (81 Seybol d Chewable 00:00: mg total) Tablet 00 by mouth daily Tramadol 2021- No [id number] 50mg QD Take 1 K elsey HCl 50 MG 3-01 03-30 tablet (50 Sey bold oral Tablet 00:00: 00:00 mg total) 00 :00 by mouth daily as needed for pain lisinopriL 2019-03 Yes 10mg Take 10 mg U nivers 10 mg 1-09 by mouth ity of tablet 19:16: daily. [address] lisinopriL 2019-03 Yes 10mg Take 10 mg U nivers 10 mg 1-09 by mouth ity of tablet 19:16: daily. [address] lisinopriL 2019-03 Yes 10mg Take 10 mg U nivers 10 mg 1-09 by mouth ity of tablet 19:16: daily. [place] [address] Medical Branch lisinopriL 2019- Yes 10mg Take 10 mg U nivers 10 mg 1-09 by mouth ity of tablet 19:16: daily. [place] [address] Medical Branch lisinopriL 2019- Yes 10mg Take 10 mg U nivers 10 mg 1-09 by mouth ity of tablet 19:16: daily. [place] [address] Medical Branch lisinopriL 2019- Yes 10mg Take 10 mg U nivers 10 mg 1-09 by mouth ity of tablet 13:16: daily. [place] [address] Medical Branch atorvastati 2019-03 Yes [id number] 40mg Take 1 Univers n 40 mg 1-09 tablet by ity of tablet 00:00: mouth [place] 00 daily. Medical Branch aspirin 81 2019-03 Yes [id number] 81mg Take 1 Univers mg EC 1-09 tablet by ity of tablet 00:00: mouth [place] 00 daily. Medical Branch atorvastati 2019-03 Yes [id number] 40mg Take 1 Univers n 40 mg 1-09 tablet by ity of tablet 00:00: mouth [place] 00 daily. Medical Branch aspirin 81 2019-03 Yes [id number] 81mg Take 1 Univers mg EC 1-09 tablet by ity of tablet 00:00: mouth [place] 00 daily. Medical Branch atorvastati 2019-03 Yes [id number] 40mg Take 1 Univers n 40 mg 1-09 tablet by ity of tablet 00:00: mouth [place] 00 daily. Medical Branch aspirin 81 2019-03 Yes [id number] 81mg Take 1 Univers mg EC 1-09 tablet by ity of tablet 00:00: mouth [place] 00 daily. Medical Branch atorvastati 2019-03 Yes [id number] 40mg Take 1 Univers n 40 mg 1-09 tablet by ity of tablet 00:00: mouth [place] 00 daily. Medical Branch aspirin 81 2019-03 Yes [id number] 81mg Take 1 Univers mg EC 1-09 tablet by ity of tablet 00:00: mouth [place] 00 daily. Medical Branch atorvastati 2019-03 Yes [id number] 40mg Take 1 Univers n 40 mg 1-09 tablet by ity of tablet 00:00: mouth [place] 00 daily. Medical Branch aspirin 81 2019-03 Yes [id number] 81mg Take 1 Univers mg EC 1-09 tablet by ity of tablet 00:00: mouth [place] 00 daily. Medical Branch atorvastati 2020-1 Yes [id number] 40mg Take 1 Univers n 40 mg 1-09 tablet by ity of tablet 00:00: mouth [place] 00 daily. Medical Branch aspirin 81 2020-1 Yes [id number] 81mg Take 1 Univers mg EC 1-09 tablet by ity of tablet 00:00: mouth [place] 00 daily. Medical Branch metoprolol 2020-0 Yes [id number] 25mg Take 1 U nivers succinate 9-10 tablet by ity o f XL 25 mg 24 00:00: mouth [place] hr tablet 00 daily. Medical Branch traZODone 2020-0 Yes [id number] 50mg Take 1 Un jody 50 mg 9-10 tablet by ity of tablet 00:00: mouth at [place] 00 bedtime. Medical Branch cyclobenzap 2019-0 Yes [id number] 10mg Take 1 Univers rine 10 mg 9-10 tablet by ity of tablet 00:00: mouth 3 (three) Medical times Branch daily as needed for Muscle Spasms. naproxen 2020-0 Yes [id number] 500mg Take 1 U nivers 500 mg 9-10 tablet by ity of tablet 00:00: mouth 2 (two) Medical times Branch daily with meals. buPROPion 2020-0 Yes [id number] 150mg Take 1 U nivers SR 9-10 tablet by ity of (WELLBUTRIN 00:00: mouth 2 Oni as SR) 150 mg 00 (two) Medical SR tablet times Branch daily. metoprolol 2020-0 Yes [id number] 25mg Take 1 U nivers succinate 9-10 tablet by ity o f XL 25 mg 24 00:00: mouth [place] hr tablet 00 daily. Medical Branch traZODone 2020-0 Yes [id number] 50mg Take 1 Un jody 50 mg 9-10 tablet by ity of tablet 00:00: mouth at [place] 00 bedtime. Medical Branch cyclobenzap 2020-0 Yes [id number] 10mg Take 1 Univers rine 10 mg 9-10 tablet by ity of tablet 00:00: mouth 3 00 (three) Medical times Branch daily as needed for Muscle Spasms. naproxen 2020-0 Yes [id number] 500mg Take 1 U nivers 500 mg 9-10 tablet by ity of tablet 00:00: mouth 2 00 (two) Medical times Branch daily with meals. buPROPion 2020-0 Yes [id number] 150mg Take 1 U nivers SR 9-10 tablet by ity of (WELLBUTRIN 00:00: mouth 2 Oni as SR) 150 mg 00 (two) Medical SR tablet times Branch daily. metoprolol 2020-0 Yes [id number] 25mg Take 1 U nivers succinate 9-10 tablet by ity o f XL 25 mg 24 00:00: mouth [place] hr tablet 00 daily. Medical Branch traZODone 2020-0 Yes [id number] 50mg Take 1 Un jody 50 mg 9-10 tablet by ity of tablet 00:00: mouth at [place] 00 bedtime. Medical Branch cyclobenzap 2020-0 Yes [id number] 10mg Take 1 Univers rine 10 mg 9-10 tablet by ity of tablet 00:00: mouth 3 [place] 00 (three) Medical times Branch daily as needed for Muscle Spasms. naproxen 2020-0 Yes [id number] 500mg Take 1 U nivers 500 mg 9-10 tablet by ity of tablet 00:00: mouth 2 [place] 00 (two) Medical times Branch daily with meals. buPROPion 2020-0 Yes [id number] 150mg Take 1 U nivers SR 9-10 tablet by ity of (WELLBUTRIN 00:00: mouth 2 Oni as SR) 150 mg 00 (two) Medical SR tablet times Branch daily. traZODone 2020-0 Yes [id number] 50mg Take 1 Un jody 50 mg 9-10 tablet by ity of tablet 00:00: mouth at [place] 00 bedtime. Medical Branch cyclobenzap 2020-0 Yes [id number] 10mg Take 1 Univers rine 10 mg 9-10 tablet by ity of tablet 00:00: mouth 3 [place] (three) Medical times Branch daily as needed for Muscle Spasms. traZODone 2020-0 Yes [id number] 50mg Take 1 Un jody 50 mg 9-10 tablet by ity of tablet 00:00: mouth at [place] 00 bedtime. Medical Branch cyclobenzap 2020-0 Yes [id number] 10mg Take 1 Univers rine 10 mg 9-10 tablet by ity of tablet 00:00: mouth 3 [place] 00 (three) Medical times Branch daily as needed for Muscle Spasms. traZODone 2020-0 Yes [id number] 50mg Take 1 Un jody 50 mg 9-10 tablet by ity of tablet 00:00: mouth at [place] [address] bedtime. Medical Branch cyclobenzap 2020-0 Yes [id number] 10mg Take 1 Univers rine 10 mg 9-10 tablet by ity of tablet 00:00: mouth 3 [place] (three) Medical times [place] daily as needed for Muscle Spasms. traZODone 2020-0 Yes [id number] 50mg Take 1 Un jody 50 mg 9-10 tablet by ity of tablet 00:00: mouth at [place] 00 bedtime. Medical Branch cyclobenzap 2020-0 Yes [id number] 10mg Take 1 Univers rine 10 mg 9-10 tablet by ity of tablet 00:00: mouth 3 [place] (three) Medical times [place] daily as needed for Muscle Spasms. traZODone 2020-0 Yes [id number] 50mg Take 1 Un jody 50 mg 9-10 tablet by ity of tablet 00:00: mouth at [place] [address] bedtime. Medical Branch cyclobenzap 2020-0 Yes [id number] 10mg Take 1 Univers rine 10 mg 9-10 tablet by ity of tablet 00:00: mouth 3 [place] (three) Medical times [place] daily as needed for Muscle Spasms. traZODone 2020-0 Yes [id number] 50mg Take 1 Un jody 50 mg 9-10 tablet by ity of tablet 00:00: mouth at [place] [address] bedtime. Medical Branch cyclobenzap 2020-0 Yes [id number] 10mg Take 1 Univers rine 10 mg 9-10 tablet by ity of tablet 00:00: mouth 3 [place] (three) Medical times [place] daily as needed for Muscle Spasms. metoprolol 2020-0 Yes [id number] 25mg Take 1 U nivers succinate 9-10 tablet by ity o f XL 25 mg 24 00:00: mouth [place] hr tablet 00 daily. Medical Branch traZODone 2020-0 Yes [id number] 50mg Take 1 Un jody 50 mg 9-10 tablet by ity of tablet 00:00: mouth at [place] [address] bedtime. Medical Branch cyclobenzap 2020-0 Yes [id number] 10mg Take 1 Univers rine 10 mg 9-10 tablet by ity of tablet 00:00: mouth 3 [place] 00 (three) Medical times Branch daily as needed for Muscle Spasms. naproxen 2020-0 Yes [id number] 500mg Take 1 U nivers 500 mg 9-10 tablet by ity of tablet 00:00: mouth 2 [place] 00 (two) Medical times Branch daily with meals. buPROPion 2020-0 Yes [id number] 150mg Take 1 U nivers SR 9-10 tablet by ity of (WELLBUTRIN 00:00: mouth 2 Oni as SR) 150 mg 00 (two) Medical SR tablet times Branch daily. metoprolol 2019-0 Yes [id number] 25mg Take 1 U nivers succinate 9-10 tablet by ity o f XL 25 mg 24 00:00: mouth [place] hr tablet 00 daily. Medical Branch traZODone 2019-0 Yes [id number] 50mg Take 1 Un jody 50 mg 9-10 tablet by ity of tablet 00:00: mouth at [place] 00 bedtime. Medical Branch cyclobenzap 2019-0 Yes [id number] 10mg Take 1 [facility] rine 10 mg 9-10 tablet by ity of tablet 00:00: mouth 3 [place] 00 (three) Medical times Branch daily as needed for Muscle Spasms. naproxen 2019-0 Yes [id number] 500mg Take 1 U nivers 500 mg 9-10 tablet by ity of tablet 00:00: mouth 2 [place] 00 (two) Medical times Branch daily with meals. buPROPion 2019-0 Yes [id number] 150mg Take 1 U nivers SR 9-10 tablet by ity of (WELLBUTRIN 00:00: mouth 2 [place] SR) 150 mg 00 (two) Medical SR tablet times Branch daily. metoprolol 2020- No [id number] 25mg Take 1 [facility] succinate 9-10 11-09 tablet by ity of XL 25 mg 24 00:00: 00:[place] tablet 00 :00 daily. [facility] naproxen 0 2020- No [id number] 500mg Take 1 [facility] 500 mg 9-10 11-09 tablet by ity of tablet 00:00: 00:00 mouth 2 [place] 00 :00 (two) Medical times Branch daily with meals. buPROPion 2019-0 2020- No [id number] 150mg Take 1 [facility] SR 9-10 11-09 tablet by ity of (WELLBUTRIN 00:00: 00:00 mouth 2 [place] SR) 150 mg 00 :00 (two) Medical SR tablet times Branch daily. metoprolol 2020- No [id number] 25mg Take 1 [facility] succinate 9-10 11-09 tablet by ity of XL 25 mg 24 00:00: 00:[place] tablet 00 :00 daily. [facility] naproxen 2019- No [id number] 500mg Take 1 [facility] 500 mg 9-10 11-09 tablet by ity of tablet 00:00: 00:00 mouth 2 [place] 00 :00 (two) Medical times Branch daily with meals. buPROPion 2019- No [id number] 150mg Take 1 [facility] SR 9-10 11-09 tablet by ity of (WELLBUTRIN 00:00: 00:00 mouth 2 [place] SR) 150 mg 00 :00 (two) Medical SR tablet times Branch daily. metoprolol 2020- No [id number] 25mg Take 1 [facility] succinate 9-10 11- tablet by ity of XL 25 mg 24 00:00: 00:[place] tablet 00 :00 daily. [facility] naproxen 2019- No [id number] 500mg Take 1 [facility] 500 mg 9-10 - tablet by ity of tablet 00:00: 00:00 mouth 2 [place] 00 :00 (two) Medical times Branch daily with meals. buPROPion 2019- No [id number] 150mg Take 1 [facility] SR 9-10 11-09 tablet by ity of (WELLBUTRIN 00:00: 00:00 mouth 2 [place] SR) 150 mg 00 :00 (two) Medical SR tablet times Branch daily. TRAZODONE 2018-03 Yes [id number] TAKE THREE [facility] 50 mg 1-18 TABLETS BY ity of tablet 00:00: MOUTH AT [address] Branch TRAZODONE 2018-03 Yes [id number] TAKE THREE [facility] 50 mg 1-18 TABLETS BY ity of tablet 00:00: [facility] [place] [facility] 2018-03 2020- No [id number] TAKE THREE [facility] 50 mg 1-18 09-10 TABLETS BY ity of tablet 00:00: 00:00 MOUTH AT [place] 00 [facility] TRA[facility] 2018-03 2020- No [id number] TAKE THREE [facility] 50 mg 1-18 09-10 TABLETS BY ity of tablet 00:00: 00:00 MOUTH AT [place] [facility] metoprolol Yes 25mg Take 1 [...] 6-14 (Same as: l 14:00: Colace) [place] 00 (Do Not Crush) Docusate No Notes: [facility] 6-14 (Same as: l 14:00: Colace) [place] 00 (Do Not Crush) Docusate No Notes: [facility] 6-14 (Same as: l 14:00: Colace) [place] 00 (Do Not Crush) Docusate No Notes: [facility] 6-14 (Same as: l 14:00: Colace) [place] 00 (Do Not Crush) gabapentin No Notes: [...] teto 6-14 acetaminop l 11:00: hen 4000 [place] 00 mg/day (4 gm/day). (Same as: Tylenol Extra Strength) Tylenol No Notes: Max Kuldeep teto 6-14 acetaminop l 11:00: hen 4000 [place] 00 mg/day (4 gm/day). (Same as: Tylenol Extra Strength) Tylenol No Notes: Max Kuldeep teto 6-14 acetaminop l 11:00: hen 4000 [place] 00 mg/day (4 gm/day). (Same as: Tylenol Extra Strength) Lovenox No Notes: [facility] 6-14 (Same as: l 09:00: Lovenox) [place] Lovenox No Notes: [facility] 6-14 (Same as: l 09:00: Lovenox) [place] Lovenox No Notes: [facility] 6-14 (Same as: l 09:00: Lovenox) [place] Lovenox No Notes: [facility] 6-14 (Same as: l 09:00: Lovenox) [place] Isolyte S No Notes: Memori a PH [...] Oral Tablet 00 (Same As: Ultram) tramadol 2019-0 No Notes: Not Mem oria hydrochlori 6-14 to exceed l de 50 MG 08:14: 400mg/day. Her [place]and[place] Oral Tablet 00 (Same As: Ultram) tramadol 2018- No Notes: Not [facility] o[facility] hydrochlori 6-14 to exceed l de 50 MG 08:14: 400mg/day. [place] Oral Tablet 00 (Same As: Ultram) Ondansetron 2018-0 No Notes: Kuldeep teto 6-14 (Same as: l 08:13: Zofran) [place] 00 MEDICATION WASTE Product Size: 4 mg Product Wasted: _0__ mg Glucagon 2019-0 No 1 mg, [facility] 614 Route: IM, l 08:13: Drug form: [place] 00 PDR/INJ, PRN, Dosing Weight 81.818, kg, PRN Blood Glucose Results, Start date: 08/16/18 3:13:00 CDT, Duration: 30 day, Stop date: 09/15/18 3:12:00 CDT Dextrose 2019-0 No 12.5 gm, [facility] ia 50% Syringe 6-14 25 mL, l 08:13: Route: [place] 00 IVP, Drug Form: INJ, Dosing Weight 81.818, kg, PRN, PRN Blood Glucose Results, Start date: 08/16/18 3:13:00 CDT, Duration: 30 day, Stop date: 09/15/18 3:12:00 CDT Ondansetron No Notes: Kuldeep teto -14 (Same as: l 08:13: Janes) [place] 00 MEDICATION WASTE Product Size: 4 mg Product Wasted: _0__ mg Glucagon 2019-0 No 1 mg, [facility] 614 Route: IM, l 08:13: Drug form: [place] 00 PDR/INJ, PRN, Dosing Weight 81.818, kg, PRN Blood Glucose Results, Start date: 08/16/18 3:13:00 CDT, Duration: 30 day, Stop date: 09/15/18 3:12:00 CDT Dextrose 2019-0 No 12.5 gm, [facility] ia 50% Syringe 6-14 25 mL, l 08:13: Route: [place] 00 IVP, Drug Form: INJ, Dosing Weight 81.818, kg, PRN, PRN Blood Glucose Results, Start date: 08/16/18 3:13:00 CDT, Duration: 30 day, Stop date: 09/15/18 3:12:00 CDT Ondansetron 2019-0 No Notes: Kuldeep teto 6-14 (Same as: l 08:13: Lienan) [place] 00 MEDICATION WASTE Product Size: 4 mg Product Wasted: _0__ mg Glucagon 2019-0 No 1 mg, [facility] 6-14 Route: IM, l 08:13: Drug form: [place] PDR/INJ, PRN, Dosing Weight 81.818, kg, PRN Blood Glucose Results, Start date: 08/16/18 3:13:00 CDT, Duration: 30 day, Stop date: 09/15/18 3:12:00 CDT Dextrose 2019-0 No 12.5 gm, [facility] 50% Syringe 6-14 25 mL, l 08:13: Route: [place] IVP, Drug Form: INJ, Dosing Weight 81.818, kg, PRN, PRN Blood Glucose Results, Start date: 08/16/18 3:13:00 CDT, Duration: 30 day, Stop date: 09/15/18 3:12:00 CDT Ondansetron 2019-0 No Notes: Kuldeep teto 6-14 (Same as: l 08:13: Janes) [place] MEDICATION WASTE Product Size: 4 mg Product Wasted: _0__ mg Glucagon 2019-0 No 1 mg, [facility] 6-14 Route: IM, l 08:13: Drug form: [place] 00 PDR/INJ, PRN, Dosing Weight 81.818, kg, PRN Blood Glucose Results, Start date: 08/16/18 3:13:00 CDT, Duration: 30 day, Stop date: 09/15/18 3:12:00 CDT Dextrose 2019-0 No 12.5 gm, [facility] ia 50% Syringe 6-14 25 mL, l 08:13: Route: [place] 00 IVP, Drug Form: INJ, Dosing Weight 81.818, kg, PRN, PRN Blood Glucose Results, Start date: 08/16/18 3:13:00 CDT, Duration: 30 day, Stop date: 09/15/18 3:12:00 CDT Zofran 2019-0 No 4 mg, [facility] 6-14 Route: l 07:11: IVP, Drug [place] 00 form: INJ, ONCE, Dosing Weight 81.818, kg, Priority: STAT, Start date: 08/16/18 2:11:00 CDT, Stop date: 08/16/18 2:11:00 CDT Morphine 2019-0 No 4 mg, [facility] 6-14 Route: l 07:11: IVP, ONCE, [place] 00 Dosing Weight 81.818, kg, Priority: STAT, Start date: 08/16/18 2:11:00 CDT, Stop date: 08/16/18 2:11:00 CDT Zofran 2019-0 No 4 mg, [facility] 6-14 Route: l 07:11: IVP, Drug [place] form: INJ, ONCE, Dosing Weight 81.818, kg, Priority: STAT, Start date: 08/16/18 2:11:00 CDT, Stop date: 08/16/18 2:11:00 CDT Morphine 2019-0 No 4 mg, [facility] 6-14 Route: l 07:11: IVP, ONCE, [place] 00 Dosing Weight 81.818, kg, Priority: STAT, Start date: 08/16/18 2:11:00 CDT, Stop date: 08/16/18 2:11:00 CDT Zofran 2019-0 No 4 mg, [facility] 6-14 Route: l 07:11: IVP, Drug [place] 00 form: INJ, ONCE, Dosing Weight 81.818, kg, Priority: STAT, Start date: 08/16/18 2:11:00 CDT, Stop date: 08/16/18 2:11:00 CDT Morphine 2019-0 No 4 mg, [facility] 6-14 Route: l 07:11: IVP, ONCE, [place] 00 Dosing Weight 81.818, kg, Priority: STAT, Start date: 08/16/18 2:11:00 CDT, Stop date: 08/16/18 2:11:00 CDT Zofran 2019-0 No 4 mg, [facility] 6-14 Route: l 07:11: IVP, Drug form: INJ, ONCE, Dosing Weight 81.818, kg, Priority: STAT, Start date: 08/16/18 2:11:00 CDT, Stop date: 08/16/18 2:11:00 CDT Morphine No 4 mg, [facility] 14 Route: l 07:11: IVP, ONCE, Dosing Weight 81.818, kg, Priority: STAT, Start date: 08/16/18 2:11:00 CDT, Stop date: 08/16/18 2:11:00 CDT Doxycycline Yes Notes: Kuldeep teto 4-19 (Same as: l 18:35: Vibramycin [place] 00 ) Doxycycline Yes Notes: Kuldeep teto 4-19 (Same as: l 18:35: Vibramycin [place] 00 ) Doxycycline Yes Notes: Kuldeep teto 4-19 (Same as: l 18:35: Vibramycin [place] 00 ) Doxycycline Yes Notes: Kuldeep teto 4-19 (Same as: l 18:35: Vibramycin [place] ) Trazodone No Notes: Memori a Hydrochlori 4-02 (Same As: l de 50 MG 02:00: Desyrel) [place] nn Oral Tablet atorvastati No Notes: Kuldeep teto n 4-02 [...] 00 atorvastati No Notes: Kuldeep teto n 06-04 (Same as: l 02:00: Lipitor) [place] doxycycline Yes 100 mg = 1 [facility] hyclate 100 4-01 tab, PO, l MG Oral 20:58: Q12H, X 14 Herm ladi Tablet 00 day, # 28 tab, 0 Refill(s), Pharmacy: [facility] [id number] doxycycline Yes 100 mg = 1 [facility] hyclate 100 4-01 tab, PO, l MG Oral 20:58: Q12H, X 14 [place] Tablet 00 day, # 28 tab, 0 Refill(s), Pharmacy: [facility] [id number] doxycycline Yes 100 mg = 1 [facility] hyclate 100 - tab, PO, l MG Oral 20:58: Q12H, X 14 [place] lad[place] Tablet 00 day, # 28 tab, 0 Refill(s), Pharmacy: [facility] [id number] doxycycline Yes 100 mg = 1 [facility] hyclate 100 06-03 tab, PO, l MG Oral 20:58: Q12H, X 14 [place] lad[place] Tablet 00 day, # 28 tab, 0 Refill(s), Pharmacy: [facility] [id number] meropenem No Notes: Memori a 06-03 Same as l 18:00: Merrem [place] MEDICATION WASTE Product Size: 500 mg Product Wasted: ___ mg meropenem No Notes: Memori a 06-03 Same as l 18:00: Merrem [place] 00 MEDICATION WASTE Product Size: 500 mg Product Wasted: ___ mg meropenem No Notes: Memori a 06-03 Same as l 18:00: Merrem [place] 00 MEDICATION WASTE Product Size: 500 mg Product Wasted: ___ mg meropenem No Notes: Memori a 06-03 Same as l 18:00: Merrem [place] 00 MEDICATION WASTE Product Size: 500 mg Product Wasted: ___ mg tramadol No Notes: Not Mem oria hydrochlori 06-03 to exceed l de 50 MG 17:30: 400mg/day. Her [place] Oral Tablet (Same As: Ultram) tramadol No Notes: Not [facility] hydrochlori 4- to exceed l de 50 MG 17:30: 400mg/day. [place] Oral Tablet 00 (Same As: Ultram) tramadol No Notes: Not Mem [facility] hydrochlori 4- to exceed l de 50 MG 17:30: 400mg/day. [place] Oral Tablet 00 (Same As: Ultram) tramadol No Notes: Not [facility] hydrochlori 4- to exceed l de 50 MG 17:30: 400mg/day. [place] Oral Tablet 00 (Same As: Ultram) Doxycycline No Notes: Kuldeep teto 4- (Same as: l 15:10: Vibramycin [place] 00 ) Doxycycline No Notes: Kuldeep teto 4- (Same as: l 15:10: Vibramycin [place] 00 ) Doxycycline No Notes: Kuldeep teto 4- (Same as: l 15:10: Vibramycin [place] 00 ) Doxycycline No Notes: Kuldeep teto 4- (Same as: l 15:10: Vibramycin [place] 00 ) duloxetine No Notes: Memor ia - (Same as: l 14:00: Cymbalta) [place] 00 (Do Not Crush) Docusate No Notes: [facility] Sodium 100 - (Same as: l MG Oral 14:00: Colace) [place] Capsule 00 (Do Not [Colace] Crush) clopidogrel No Notes: Kuldeep teto 4- (Same As: l 14:00: Plavix) [place] 00 heparin No Notes: [facility] 4-01 porcine l 14:00: heparin [place] 00 Buspirone No Notes: Memori a 4- (Same As: l 14:00: BuSpar) [place] 00 tramadol No Notes: Not Mem oria hydrochlori - to exceed l de 50 MG 14:00: 400mg/day. Her [place] Oral Tablet 00 (Same As: Ultram) Aspirin 81 No Notes: Do Me moria MG Enteric 4- not crush l Coated 14:00: or chew. [place] Tablet 00 (Same As: Ecotrin) Midodrine No Notes: Memori a 4- (Same l 14:00: as:Proamat [place] 00 ine) metoprolol No Notes: Memor ia extended 4- (Same as: l release 14:00: Toprol XL) [place] 00 Do Not Crush Lisinopril No Notes: Memor ia 4- (Same as: l 14:00: Prinivil, [place] 00 Zestril) duloxetine No Notes: Memor ia 4- (Same as: l 14:00: Cymbalta) [place] 00 (Do Not Crush) Docusate No Notes: [facility] Sodium 100 4- (Same as: l MG Oral 14:00: Colace) [place] Capsule 00 (Do Not [Colace] Crush) clopidogrel No Notes: Kuldeep teto 4- (Same As: l 14:00: Plavix) [place] 00 heparin No Notes: [facility] 4- porcine l 14:00: heparin [place] 00 Buspirone No Notes: Memori a 4- (Same As: l 14:00: BuSpar) [place] 00 tramadol No Notes: Not Mem oria hydrochlori 06-03 to exceed l de 50 MG 14:00: 400mg/day. [place] Oral Tablet 00 (Same As: Ultram) Aspirin 81 No Notes: Do Me moria MG Enteric - not crush l Coated 14:00: or chew. [place] Tablet 00 (Same As: Ecotrin) Midodrine No Notes: Memori a 4- (Same l 14:00: as:Proamat [place] 00 ine) metoprolol No Notes: [facility]or ia extended 4- (Same as: l release 14:00: Toprol XL) [place] 00 Do Not Crush Lisinopril No Notes: Memor ia 4-01 (Same as: l 14:00: Prinivil, [place] 00 Zestril) duloxetine No Notes: Memor ia 4-01 (Same as: l 14:00: Cymbalta) [place] 00 (Do Not Crush) Docusate No Notes: [facility] Sodium 100 4- (Same as: l MG Oral 14:00: Colace) [place] Capsule 00 (Do Not [Colace] Crush) clopidogrel No Notes: Kuldeep teto 4- (Same As: l 14:00: Plavix) [place] 00 heparin No Notes: [facility] 4-01 porcine l 14:00: heparin [place] 00 Buspirone No Notes: Memori a 4- (Same As: l 14:00: BuSpar) [place] 00 [...] [facility]ori a 4- (Same l 14:00: as:Proamat [place] 00 ine) metoprolol No Notes: [facility]or ia extended 4- (Same as: l release 14:00: Toprol XL) [place] 00 Do Not Crush Lisinopril No Notes: Memor ia 4- (Same as: l 14:00: Prinivil, [place] 00 Zestril) tramadol No Notes: Not Mem oria hydrochlori 4- to exceed l de 50 MG 14:00: 400mg/day. [place] Oral Tablet 00 (Same As: Ultram) Aspirin 81 No Notes: Do Me moria MG Enteric 4- not crush l Coated 14:00: or chew. [place] Tablet 00 (Same As: Ecotrin) Midodrine No Notes: Memori a 4-01 (Same l 14:00: as:Proamat [place] 00 ine) metoprolol No Notes: Memor ia extended 4-01 (Same as: l release 14:00: Toprol XL) [place] 00 Do Not Crush Lisinopril No Notes: Memor ia 4-01 (Same as: l 14:00: Prinivil, [place] 00 Zestril) duloxetine No Notes: Memor ia 4-01 (Same as: l 14:00: Cymbalta) [place] 00 (Do Not Crush) Docusate No Notes: [facility] Sodium 100 4- (Same as: l MG Oral 14:00: Colace) [place] Capsule 00 (Do Not [Colace] Crush) clopidogrel No Notes: Kuldeep teto 4-01 (Same As: l 14:00: Plavix) [place] 00 heparin No Notes: [facility] 4-01 porcine l 14:00: heparin [place] 00 Buspirone No Notes: Memori a 4-01 (Same As: l 14:00: BuSpar) [place] 00 tramadol No Notes: Not Mem oria [...] tramadol No Notes: Not Mem oria hydrochlori 4-01 to exceed l de 50 MG 04:45: 400mg/day. [place] Oral Tablet 00 (Same As: Ultram) Hydralazine No Notes: Kuldeep teto 4-01 (Same as: l 02:32: Apresoline [place] 00 ) Push over 5 minutes Hydralazine No Notes: Kuldeep teto 4-01 (Same as: l 02:32: Apresoline [place] 00 ) Push over 5 minutes Hydralazine No Notes: Kuldeep teto 4-01 (Same as: l 02:32: Apresoline [place] 00 ) Push over 5 minutes Hydralazine No Notes: Kuldeep teto 4-01 (Same as: l 02:32: Apresoline [place] 00 ) Push over 5 minutes Trazodone No Notes: Memori a 4-01 (Same As: l 02:19: Desyrel) [place] 00 Trazodone 2018-0 No Notes: Memori a 06-03 (Same As: l 02:19: Desyrel) [place] 00 Trazodone 2018-0 No Notes: Memori a 06-03 (Same As: l 02:19: Desyrel) [place] 00 Trazodone 2018-0 No Notes: Memori a 06-03 (Same As: l 02:19: Desyrel) [place] 00 Vancomycin 0 No 2001 mg: Me moria 4- infuse l 00:00: over 2.5 [place] 00 hours For adult patients only: Round to nearest 250 mg per Medical Staff approval MEDICATION WASTE Product Size: 1000 mg Product Wasted: ___ mg cefepime 2018-0 No Notes: [facility] 06-03 (Same As: l 00:00: Maxipime) [place] 00 MEDICATION WASTE Product Size: 1000 mg Product Wasted: ___ mg Vancomycin 2018-0 No 2001 mg: Me moria 4- infuse l 00:00: over 2.5 [place] 00 hours For adult patients only: Round to nearest 250 mg per Medical Staff approval MEDICATION WASTE Product Size: 1000 mg Product Wasted: ___ mg cefepime 2018-0 No Notes: [facility] 06-03 (Same As: l 00:00: Maxipime) [place] 00 MEDICATION WASTE Product Size: 1000 mg Product Wasted: ___ mg Vancomycin 2019-0 No 2001 mg: Me moria 4- infuse l 00:00: over 2.5 [place] 00 hours For adult patients only: Round to nearest 250 mg per Medical Staff approval MEDICATION WASTE Product Size: 1000 mg Product Wasted: ___ mg cefepime 2018-0 No Notes: [facility] 06-03 (Same As: l 00:00: Maxipime) [place] 00 MEDICATION WASTE Product Size: 1000 mg Product Wasted: ___ mg Vancomycin 2019-0 No 2001 mg: Me moria 4- infuse l 00:00: over 2.5 [place] 00 hours For adult patients only: Round to nearest 250 mg per Medical Staff approval MEDICATION WASTE Product Size: 1000 mg Product Wasted: ___ mg cefepime No Notes: [facility] 4-01 (Same As: l 00:00: Maxipime) [place] MEDICATION WASTE Product Size: 1000 mg Product Wasted: ___ mg Docusate Yes 100 mg = 1 Mem oria Sodium 100 3-31 cap, PO, l MG Oral 23:50: Daily [place] Capsule 00 [Colace] Docusate Yes 100 mg = 1 [facility] o[facility] Sodium 100 3-31 cap, PO, l MG Oral 23:50: Daily [place] Capsule 00 [Colace] Docusate Yes 100 mg = 1 [...] 3-31 tab, PO, l tablet 23:49: Daily [place] Aspirin 81 Yes 81 mg = 1 Me moria MG Enteric 3-31 tab, PO, l Coated 23:49: Daily [place] Tablet midodrine Yes 2.5 mg = 1 Me moria 2.5 mg oral 3-31 tab, PO, l tablet 23:49: Daily [place] Aspirin 81 Yes 81 mg = 1 Me moria MG Enteric 3-31 tab, PO, l Coated 23:49: Daily [place] Tablet midodrine Yes 2.5 mg = 1 Me moria 2.5 mg oral 3-31 tab, PO, l tablet 23:49: Daily [place] 00 Aspirin 81 0 Yes 81 mg = 1 Me moria MG Enteric 3-31 tab, PO, l Coated 23:49: Daily [place] Tablet midodrine Yes 2.5 mg = 1 Me moria 2.5 mg oral 3-31 tab, PO, l tablet 23:49: Daily [place] 00 Glucagon 0 No 1 mg, Mem[facility] 06-02 Route: IM, l 22:10: Drug form: [place] 00 PDR/INJ, PRN, Dosing Weight 96.8, kg, PRN Blood Glucose Results, Start date: 06/02/18 17:10:00 CDT, Duration: 30 day, Stop date: 07/02/18 17:09:00 CDT Dextrose 2018-0 No 25 gm, 50 Kuldeep teto 50% [...] 22:10: Melatonin) Ondansetron No Notes: Kuldeep teto 06-02 (Same as: l 22:10: Zofran) MEDICATION WASTE Product Size: 4 mg Product Wasted: ___ mg Glucagon No 1 mg, [facility] 06-02 Route: IM, l 22:10: Drug form: PDR/INJ, PRN, Dosing Weight 96.8, kg, PRN Blood Glucose Results, Start date: 06/02/18 17:10:00 CDT, Duration: 30 day, Stop date: 07/02/18 17:09:00 CDT Dextrose 2018-0 No 25 gm, 50 Kuldeep teto 50% [...] teto 3-31 (Same as: l 22:10: Zofran) MEDICATION WASTE Product Size: 4 mg Product Wasted: ___ mg Glucagon No 1 mg, Memoria 06-02 Route: IM, l 22:10: Drug form: [place] PDR/INJ, PRN, Dosing Weight 96.8, kg, PRN Blood Glucose Results, Start date: 06/02/18 17:10:00 CDT, Duration: 30 day, Stop date: 07/02/18 17:09:00 CDT Dextrose 2018-0 No 25 gm, 50 Kuldeep teto 50% Syringe 3-31 mL, Route: l 22:10: IVP, Drug Form: INJ, Dosing Weight 96.8, kg, PRN, PRN Blood Glucose Results, Start date: 06/02/18 17:10:00 CDT, Duration: 30 day, Stop date: 07/02/18 17:09:00 CDT Acetaminoph No Notes: Do [place] cleaning en 06-02 not exceed l 22:10: 4 gm/day. (Same as: Tylenol) Melatonin No Notes: Memori a 3-31 (Same as: l 22:10: Melatonin) Ondansetron No Notes: Kuldeep teto 3-31 (Same as: l 22:10: Zofran) MEDICATION WASTE Product Size: 4 mg Product Wasted: ___ mg Glucagon No 1 mg, Memoria 331 Route: IM, l 22:10: Drug form: [place] PDR/INJ, PRN, Dosing Weight 96.8, kg, PRN Blood Glucose Results, Start date: 06/02/18 17:10:00 CDT, Duration: 30 day, Stop date: 07/02/18 17:09:00 CDT Dextrose 2018-0 No 25 gm, 50 Kuldeep teto 50% [...] 22:10: Melatonin) Ondansetron No Notes: Kuldeep teto 06-02 (Same as: l 22:10: Zofran) MEDICATION WASTE [...] Bedtime Arsenio n Oral Tablet 00 Metoprolol 2019-0 Yes 25 mg = 1 Me moria Succinate 3-31 tab, PO, l ER 25 mg 22:06: Daily [place] oral 00 tablet, extended release DULoxetine 2019-0 Yes 30 mg = 1 Me moria 30 mg oral 3-31 cap, PO, l delayed 22:06: Daily [place] release 00 capsule Metoprolol 2019-0 Yes 25 mg = 1 Me moria Succinate 3-31 tab, PO, l ER 25 mg 22:06: Daily [place] oral 00 tablet, extended release DULoxetine 2019-0 Yes 30 mg = 1 Me moria 30 mg oral 3-31 cap, PO, l delayed 22:06: Daily [place] release 00 capsule Metoprolol 2019-0 Yes 25 mg = 1 Me moria Succinate 3-31 tab, PO, l ER 25 mg 22:06: Daily [place] oral 00 tablet, extended release DULoxetine 2019-0 Yes 30 mg = 1 Me moria 30 mg oral 3-31 cap, PO, l delayed 22:06: Daily [place] release 00 capsule Metoprolol 2019-0 Yes 25 mg = 1 Me moria Succinate 3-31 tab, PO, l ER 25 mg 22:06: Daily [place] oral 00 tablet, extended release DULoxetine 2019-0 Yes 30 mg = 1 Me moria 30 mg oral 3-31 cap, PO, l delayed 22:06: Daily [place] release 00 capsule lisinopril 2019-0 Yes 2.5 mg = Mem oria 5 mg oral 3-19 0.5 tab, l tablet 15:58: PO, Daily, Marcia nn 00 # 30 tab, 0 Refill(s), Pharmacy: [facility] [id number] lisinopril 2019-0 Yes 2.5 mg = Mem oria 5 mg oral 3-19 0.5 tab, l tablet 15:58: PO, Daily, Marcia nn 00 # 30 tab, 0 Refill(s), Pharmacy: [facility] [id number] lisinopril 2019-0 Yes 2.5 mg = Mem oria 5 mg oral 3-19 0.5 tab, l tablet 15:58: PO, Daily, Marcia nn 00 # 30 tab, 0 Refill(s), Pharmacy: [facility] [id number] lisinopril 2019-0 Yes 2.5 mg = Mem oria 5 mg oral 3-19 0.5 tab, l tablet 15:58: PO, Daily, Marcia nn 00 # 30 tab, 0 Refill(s), Pharmacy: [facility] [id number] Vancomycin 2018-0 No 2000 mg: Me moria 3-18 infuse l 23:00: over 2.5 [place] 00 hours For adult patients only: Round to nearest 250 mg per Medical Staff approval MEDICATION WASTE Product Size: 1000 mg Product Wasted: ___ mg Vancomycin 2019-0 No 2000 mg: Me moria 3-18 infuse l 23:00: over 2.5 [place] 00 hours For adult patients only: Round to nearest 250 mg per Medical Staff approval MEDICATION WASTE Product Size: 1000 mg Product Wasted: ___ mg Vancomycin 2019-0 No 2000 mg: Me moria 3-18 infuse l 23:00: over 2.5 [place] 00 hours For adult patients only: Round to nearest 250 mg per Medical Staff approval MEDICATION WASTE Product Size: 1000 mg Product Wasted: ___ mg Vancomycin 2019-0 No 2000 mg: Me moria 3-18 infuse l 23:00: over 2.5 [place] 00 hours For adult patients only: Round to nearest 250 mg per Medical Staff approval MEDICATION WASTE Product Size: 1000 mg Product Wasted: ___ mg Fleet Enema 2019-0 No 133 mL, Mem oria 3-17 Route: [place], l 22:12: Drug Form: [place] 00 CARLOZ, Dosing Weight 80.909, kg, ONCE, Start date: 05/19/18 17:12:00 CDT, Stop date: 05/19/18 17:12:00 CDT Fleet Enema 2019-0 No 133 mL, Mem oria 3-17 Route: [place], l 22:12: Drug Form: [place] 00 CARLOZ, Dosing Weight 80.909, kg, ONCE, Start date: 05/19/18 17:12:00 CDT, Stop date: 05/19/18 17:12:00 CDT Fleet Enema 2019-0 No 133 mL, Mem oria 3-17 Route: [place], l 22:12: Drug Form: [place] 00 CARLOZ, Dosing Weight 80.909, kg, ONCE, Start date: 05/19/18 17:12:00 CDT, Stop date: 05/19/18 17:12:00 CDT Fleet Enema No 133 mL, Mem oria 3-17 Route: [place], l 22:12: Drug Form: [place] CARLOZ, Dosing Weight 80.909, kg, ONCE, Start date: 05/19/18 17:12:00 CDT, Stop date: 05/19/18 17:12:00 CDT Naloxone No Notes: [facility] 3-15 Same as l 19:11: Narcan [place] Naloxone No Notes: [facility] 3-15 Same as l 19:11: Narcan Naloxone No Notes: [facility]oria 3-15 Same as l 19:11: Narcan [place] Naloxone No Notes: [facility]oria 3-15 Same as l 19:11: Narcan Romazicon Yes Notes: Memori a 3-15 (Same as: l 19:01: Romazicon) Romazicon Yes Notes: Memori a 3-15 (Same as: l 19:01: Romazicon) Romazicon Yes Notes: Memori a 3-15 (Same as: l 19:01: Romazicon) Romazicon Yes Notes: Memori a 3-15 (Same as: l 19:01: Romazicon) glycopyrrol No Route: IV, Memoria ate (ANES) 3-15 Drug form: l 16:39: INJ, ONCE, [place] Stop date: 05/17/18 11:39:00 CDT neostigmine No Route: IV, Memoria (ANES) 3-15 Drug form: l 16:39: INJ, ONCE, [place] Stop date: 05/17/18 11:39:00 CDT morphine No Route: IV, Mem oria Sulfate 3-15 Drug form: l (ANES) 16:39: INJ, ONCE, Marcia nn Stop date: 05/17/18 11:39:00 CDT ondansetron No Route: IV, Memoria (ANES) 3-15 Drug form: l 16:39: INJ, ONCE, [place] 00 Stop date: 05/17/18 11:39:00 CDT glycopyrrol 2019-0 No Route: IV, Memoria ate (ANES) 3-15 Drug form: l 16:39: INJ, ONCE, [place] 00 Stop date: 05/17/18 11:39:00 CDT neostigmine [...] 3-15 Drug form: l 16:39: INJ, ONCE, [place] 00 Stop date: 05/17/18 11:39:00 CDT glycopyrrol 2019-0 No Route: IV, Memoria ate (ANES) 3-15 Drug form: l 16:39: INJ, ONCE, [place] 00 Stop date: 05/17/18 11:39:00 CDT neostigmine [...] INJ, ONCE Stop date: 05/17/18 10:53:00 CDT fentaNYL 2019-0 [...] 3-15 Drug form: l 15:48: INJ, ONCE, [place] 00 Stop date: 05/17/18 10:48:00 CDT propofol 2019-0 No Route: IV, Mem oria (ANES) 3-15 Drug form: l 15:48: INJ, ONCE, [place] Stop date: 05/17/18 10:48:00 CDT succinylcho 2019-0 No Route: IV, Memoria line (ANES) 3-15 Drug form: l 15:43: INJ, ONCE, [place] Stop date: 05/17/18 10:43:00 CDT midazolam 2019-0 No Route: IV, Me moria (ANES) 3-15 Drug form: l 15:43: SOLN, [place] 00 ONCE, Stop date: 05/17/18 10:43:00 CDT succinylcho 2019-0 No Route: IV, Memoria line (ANES) 3-15 Drug form: l 15:43: INJ, ONCE, [place] Stop date: 05/17/18 10:43:00 CDT midazolam 2019-0 No Route: IV, Me moria (ANES) 3-15 Drug form: l 15:43: SOLN, [place] 00 ONCE, Stop date: 05/17/18 10:43:00 CDT succinylcho 2019-0 No Route: IV, Memoria line (ANES) 3-15 Drug form: l 15:43: INJ, ONCE, [place] Stop date: 05/17/18 10:43:00 CDT midazolam 2019-0 No Route: IV, Me moria (ANES) 3-15 Drug form: l 15:43: SOLN, [place] 00 ONCE, Stop date: 05/17/18 10:43:00 CDT succinylcho 2019-0 No Route: IV, Memoria line (ANES) 3-15 Drug form: l 15:43: INJ, ONCE, [place] Stop date: 05/17/18 10:43:00 CDT midazolam 2019-0 No Route: IV, Me moria (ANES) 3-15 Drug form: l 15:43: SOLN, [place] 00 ONCE, Stop date: 05/17/18 10:43:00 CDT Flumazenil No Notes: Memor ia 3-15 (Same as: l 15:35: Romazicon) Morphine No Notes: Memoria 3-15 (Same l 15:35: as:MORPhin [place] 00 e Sulfate) Hydromorpho No Notes: Kuldeep teto ne 3-15 Same as l 15:35: Dilaudid [place] Acetaminoph No Notes: Max Memoria en 3-15 acetaminop l 15:35: hen 4000 [place] 00 mg/day (4 gm/day). (Same as: Tylenol [...] ne 3-15 Same as l 15:35: Dilaudid [place] Acetaminoph No Notes: Max Memoria en 3-15 acetaminop l 15:35: hen 4000 [place] 00 mg/day (4 gm/day). (Same as: Tylenol Extra Strength) Promethazin No Notes: Do M emoria e 3-15 not give l 15:35: IV push. [place] 00 (Same as: Phenergan) Ondansetron No Notes: Kuldeep teto 3-15 (Same as: l 15:35: Zofran) [place] 00 MEDICATION WASTE Product Size: [...] Notes: Memoria 3-15 (Same l 15:35: as:MORPhin [place] 00 e Sulfate) Hydromorpho No Notes: Kuldeep teto ne 3-15 Same as l 15:35: Dilaudid [place] 00 Acetaminoph No Notes: Max Memoria en 3-15 acetaminop l 15:35: hen 4000 [place] 00 mg/day (4 gm/day). (Same as: Tylenol Extra Strength) Promethazin No Notes: Do M emoria e 3-15 not give l 15:35: IV push. [place] 00 (Same as: Phenergan) Ondansetron No Notes: Kuldeep etto 3-15 (Same as: l 15:35: Zofran) [place] 00 MEDICATION WASTE Product Size: 4 mg Product Wasted: ___ mg Meperidine No Notes: Memor ia 3-15 (Same as: l 15:35: Demerol) "Use Precaution in Elderly, Seizure disorders, and Renal impairment " Glycopyrrol No Notes: Kuldeep teto ate 3-15 (Same as: l 15:35: Robinul) [place] 00 Naloxone No Notes: Memoria 3-15 Same as l 15:35: Narcan Flumazenil No Notes: Memor ia 3-15 (Same as: l 15:35: Romazicon) Morphine No Notes: Memoria 3-15 (Same l 15:35: as:MORPhin e Sulfate) Hydromorpho No Notes: Kuldeep teto ne 3-15 Same as l 15:35: Dilaudid Acetaminoph No Notes: Max Memoria en 3-15 acetaminop l 15:35: hen 4000 [place] 00 mg/day (4 gm/day). (Same as: Tylenol [...] 10 mg 15:17: INJ, Start Arsenio n 00 date: 05/17/18 10:17:00 CDT, Stop date: 05/17/18 11:17:00 CDT acetaminoph 2019-0 No Route: IV, Memoria en (ANES) 3-15 Drug form: l 10 mg 15:17: INJ, Start Arsenio n 00 date: 05/17/18 10:17:00 CDT, Stop date: 05/17/18 11:17:00 CDT phenylephri 2019-0 No Route: IV, Memoria ne (ANES) 3-15 Drug form: l 100 14:50: INJ, Start [place] microgram date: 05/17/18 9:50:00 CDT, Stop date: 05/17/18 10:50:00 CDT phenylephri 2018-0 No Route: IV, Memoria ne (ANES) 3-15 Drug form: l 100 14:50: INJ, Start [place] microgram date: 05/17/18 9:50:00 CDT, Stop date: 05/17/18 10:50:00 CDT phenylephri 2018-0 No Route: IV, Memoria ne (ANES) 3-15 Drug form: l 100 14:50: INJ, Start [place] microgram 00 date: 05/17/18 9:50:00 CDT, Stop date: 05/17/18 10:50:00 CDT phenylephri 2018-0 No Route: IV, Memoria ne (ANES) 3-15 Drug form: l 100 14:50: INJ, Start [place] microgram 00 date: 05/17/18 9:50:00 CDT, Stop date: 05/17/18 10:50:00 CDT Lactated 2018-0 No Route: IV, Mem oria Ringers 3-15 Total l Injection 14:30: Volume: Marcia nn IV (ANES) 00 1,000, 1000 mL Start date: 05/17/18 9:30:00 CDT, Stop date: 05/17/18 10:30:00 CDT Lactated 2018-0 No Route: IV, Mem oria Ringers 3-15 Total l Injection 14:30: Volume: Marcia nn IV (ANES) 00 1,000, 1000 mL Start date: 05/17/18 9:30:00 CDT, Stop date: 05/17/18 10:30:00 CDT Lactated 2018-0 No Route: IV, Mem oria Ringers 3-15 Total l Injection 14:30: Volume: Marcia nn IV (ANES) 00 1,000, 1000 mL Start date: 05/17/18 9:30:00 CDT, Stop date: 05/17/18 10:30:00 CDT Lactated 2018-0 No Route: IV, Mem oria Ringers 3-15 Total l Injection 14:30: Volume: Marcia nn IV (ANES) 00 1,000, 1000 mL Start date: 05/17/18 9:30:00 CDT, Stop date: 05/17/18 10:30:00 CDT Lisinopril 2018-0 No Notes: Memor ia 3-15 (Same as: l 14:00: Prinivil, [place] 00 Zestril) Lisinopril 2018-0 No Notes: Memor ia 3-15 (Same as: l 14:00: Prinivil, [place] 00 Zestril) Lisinopril 2018-0 No Notes: Memor ia 3-15 (Same as: l 14:00: Prinivil, [place] 00 Zestril) Lisinopril 2018-0 No Notes: Memor ia 3-15 (Same as: l 14:00: Prinivil, [place] 00 Zestril) Vancomycin 2018-0 No 2000 mg: Me moria 3-15 infuse l 06:00: over 2.5 [place] 00 hours For adult patients only: Round to nearest 250 mg per Medical Staff approval MEDICATION WASTE Product Size: 1000 mg Product Wasted: ___ mg Vancomycin 2019-0 No 2001 mg: Me moria 3-15 infuse l 06:00: over 2.5 [place] 00 hours For adult patients only: Round to nearest 250 mg per Medical Staff approval MEDICATION WASTE Product Size: 1000 mg Product Wasted: ___ mg Vancomycin 2019-0 No 2001 mg: Me moria 3-15 infuse l 06:00: over 2.5 [place] 00 hours For adult patients only: Round to nearest 250 mg per Medical Staff approval MEDICATION WASTE Product Size: 1000 mg Product Wasted: ___ mg Vancomycin No 2001 mg: Me moria 3-15 infuse l 06:00: over 2.5 [place] 00 hours For adult patients only: Round to nearest 250 mg per Medical Staff approval MEDICATION WASTE Product Size: 1000 mg Product Wasted: ___ mg alteplase 2 No Notes: Kuldeep teto mg 3-14 "Syringe l injection 22:49: for [place] 00 catheter clearance or interventi onal radiology [...] mg 3-14 "Syringe l injection 22:49: for [place] 00 catheter clearance or interventi onal radiology use. Reconstitu te each vial of Cathflo Activase with 2.2 ml Sterile Water resulting in a 1 mg/ml solution. (Same as: Activase) MEDICATION WASTE Product Size: 2 mg Product Wasted: ___ mg alteplase 2 No Notes: Kuldeep teto mg 3-14 "Syringe l injection 22:48: for [place] 00 catheter clearance or interventi onal radiology [...] CDT, Stop date: 05/15/18 12:13:00 CDT Metoclopram 2018-0 No 10 mg, Kuldeep teto thor 3-13 Route: l 17:13: IVP, ONCE, [place] Dosing Weight 80.909, kg, Start date: 05/15/18 12:13:00 CDT, Stop date: 05/15/18 12:13:00 CDT Metoclopram 0 No 10 mg, Kuldeep teto thor 3-13 Route: l 17:13: IVP, ONCE, [place] 00 Dosing Weight 80.909, kg, Start date: 05/15/18 12:13:00 CDT, Stop date: 05/15/18 12:13:00 CDT Metoclopram 0 No 10 mg, Kuldeep teto thor 3-13 Route: l 17:13: IVP, ONCE, Dosing Weight 80.909, kg, Start date: 05/15/18 12:13:00 CDT, Stop date: 05/15/18 12:13:00 CDT Docusate No Notes: Memoria Sodium 100 3-13 (Same as: l MG Oral 15:11: Colace) [place] Capsule 00 (Do Not [Colace] Crush) Docusate No Notes: Memoria Sodium 100 3-13 (Same as: l MG Oral 15:11: Colace) [place] Capsule 00 (Do Not [Colace] Crush) Docusate No Notes: Memoria Sodium 100 3-13 (Same as: l MG Oral 15:11: Colace) [place] Capsule 00 (Do Not [Colace] Crush) Docusate No Notes: Memoria Sodium 100 3-13 (Same as: l MG Oral 15:11: Colace) [place] Capsule 00 (Do Not [Colace] Crush) Chlorpromaz No Notes: Kuldeep teto ine 3-12 (Same As: l 23:30: Thorazine) [place] Chlorpromaz No Notes: Kuldeep teto ine 3-12 (Same As: l 23:30: Thorazine) [place] Chlorpromaz 2019-0 No Notes: Kuldeep teto ine 3-12 (Same As: l 23:30: Thorazine) Chlorpromaz 2019- No Notes: Kuldeep teto ine 3-12 (Same As: l 23:30: Thorazine) [place] 00 Reglan No Notes: Memoria 3-12 (Same as: l 21:45: Reglan) [place] 00 Reglan No Notes: Memoria 3-12 (Same as: l 21:45: Reglan) [place] 00 Reglan No Notes: Memoria 3-12 (Same as: l 21:45: Reglan) [place] 00 Reglan No Notes: Memoria 3-12 (Same as: l 21:45: Reglan) cefepime Yes Notes: Memoria 3-12 (Same As: l 20:00: Maxipime) [place] 00 MEDICATION WASTE Product Size: 1000 mg Product Wasted: _0__ mg cefepime 2019 Yes Notes: Memoria 3-12 (Same As: l 20:00: Maxipime) [place] 00 MEDICATION WASTE Product Size: 1000 mg Product Wasted: _0__ mg cefepime 2018- Yes Notes: Memoria 3-12 (Same As: l 20:00: Maxipime) [place] 00 MEDICATION WASTE Product Size: 1000 mg Product Wasted: _0__ mg cefepime Yes Notes: Memoria 3-12 (Same As: l 20:00: Maxipime) [place] 00 MEDICATION WASTE Product Size: 1000 mg Product Wasted: _0__ mg Fentanyl 2018- No Notes: Memoria 3-12 (Same as: l 16:56: Sublimaze) Preservati ve free. Fentanyl 2019- No Notes: Memoria 3-12 (Same as: l 16:56: Sublimaze) Preservat shelia free. Fentanyl 2018- No Notes: Memoria 3-12 (Same as: l 16:56: Sublimaze) [place] 00 Preservati ve free. Fentanyl 2019- No Notes: Memoria 3-12 (Same as: l 16:56: Sublimaze) [place] 00 Preservati ve free. lidocaine 2019-0 No Notes: Memori a 3-12 Preservati l 05:00: ve free. [place] 00 (Same as: Xylocaine MPF) lidocaine 2019-0 No Notes: Memori a 3-12 Preservati l 05:00: ve free. [place] 00 (Same as: Xylocaine MPF) lidocaine 2019-0 No Notes: Memori a 3-12 Preservati l 05:00: ve free. [place] 00 (Same as: Xylocaine MPF) lidocaine 2019-0 No Notes: Memori a 3-12 Preservati l 05:00: ve free. [place] 00 (Same as: Xylocaine MPF) Sodium 2019-0 [...] Rate: To l 0.9% 02:42: prime line [place] (titrate) 00 and flush 250 mL remaining blood products., Dosing Weight 80.909, kg, Route: IV, Total Volume: 250, Priority: Routine, Start Date: 05/13/18 21:42:00 CDT, Duration: 30 day, Stop date: 06/12/18 21:41:00 CDT, Replace Every: 24 hr Sodium 2019-0 No 250 mL, Memoria Chloride 3-12 Rate: To l 0.9% 02:42: prime line [place] (titrate) 00 and flush 250 mL remaining [...] Notes: Memoria 3-11 (Same l 22:48: as:MORPhin [place] 00 e Sulfate) Morphine No Notes: Memoria 3-11 (Same l 22:48: as:MORPhin [place] 00 e Sulfate) Morphine No Notes: Memoria 3-11 (Same l 22:48: as:MORPhin [place] 00 e Sulfate) Morphine No Notes: Memoria 3-11 (Same l 22:48: as:MORPhin [place] 00 e Sulfate) albumin No 250 mL, [...] (ANES) 3-11 Drug form: l 14:05: SOLN, [place] ONCE, Stop date: 05/13/18 9:05:00 CDT acetaminoph 2019-0 No Route: IV, Memoria en (ANES) 3-11 Drug form: l 14:05: INJ, ONCE, [place] Stop date: 05/13/18 9:05:00 CDT sugammadex 2019-0 No Route: IV, M emoria (ANES) 3-11 Drug form: l 14:05: SOLN, [place] 00 ONCE, Stop date: 05/13/18 9:05:00 CDT acetaminoph 2019-0 No Route: IV, Memoria en (ANES) 3-11 Drug form: l 14:05: INJ, ONCE, [place] 00 Stop date: 05/13/18 9:05:00 CDT sugammadex 2019-0 No Route: IV, M emoria (ANES) 3-11 Drug form: l 14:05: SOLN, [place] 00 ONCE, Stop date: 05/13/18 9:05:00 CDT acetaminoph 2019-0 No Route: IV, Memoria en (ANES) 3-11 Drug form: l 14:05: INJ, ONCE, [place] Stop date: 05/13/18 9:05:00 CDT sugammadex 2019-0 No Route: IV, M emoria (ANES) 3- Drug form: l 14:05: SOLN, [place] 00 ONCE, Stop date: 05/13/18 9:05:00 CDT acetaminoph No Route: IV, Shahrzad en (ANES) 3- Drug form: l 14:05: INJ, ONCE, [place] 00 Stop date: 05/13/18 9:05:00 CDT Albuterol No Notes: SEE Me moria 0.83 MG/ML 3-11 RT l Inhalant 13:39: DOCUMENTAT Her fernandes Solution 00 ION (Same as: Proventil) Hydralazine No Notes: Kuldeep teto 3-11 (Same as: l 13:39: Apresoline [place] 00 ) Push over 5 minutes Hydromorpho No Notes: Kuldeep teto ne 3-11 Same as l 13:39: Dilaudid [place] 00 Morphine 2018- No Notes: Memoria 3-11 (Same l 13:39: as:MORPhin [place] 00 e Sulfate) Naloxone No Notes: Memoria 3-11 Same as l 13:39: Narcan [place] 00 Flumazenil No Notes: Memor ia 3-11 (Same as: l 13:39: Romazicon) Dexamethaso No Notes: Kuldeep tteo ne 3-11 Concentrat l 13:39: ion: [place] 00 4mg/ml Ondansetron No Notes: Kuldeep teto 3-11 (Same as: l 13:39: Zofran) [place] 00 MEDICATION WASTE Product Size: 4 mg Product Wasted: ___ mg Albuterol 2019- No Notes: SEE Me moria 0.83 MG/ML 3-11 RT l Inhalant 13:39: DOCUMENTAT Her f[place]and[place] Solution 00 ION (Same as: Proventil) Hydralazine No Notes: Kuldeep teto 3-11 (Same as: l 13:39: Apresoline [place] 00 ) Push over 5 minutes Hydromorpho No Notes: Kuldeep teto ne 3-11 Same as l 13:39: Dilaudid [place] 00 Morphine 2018- No Notes: Memoria 3-11 (Same l 13:39: as:MORPhin [place] 00 e Sulfate) Naloxone 2019-0 No Notes: Memoria 3-11 Same as l 13:39: Narcan [place] 00 Flumazenil 2019- No Notes: Memor ia 3-11 (Same as: l 13:39: Romazicon) [place] Dexamethaso 2018- No Notes: Kuldeep teto ne 3-11 Concentrat l 13:39: ion: [place] 00 4mg/ml Ondansetron 2019-0 No Notes: Kuldeep teto 3-11 (Same as: l 13:39: Zofran) [place] 00 MEDICATION WASTE Product Size: 4 mg Product Wasted: ___ mg Albuterol 2019- No Notes: SEE Me moria 0.83 MG/ML 3-11 RT l Inhalant 13:39: DOCUMENTAT Her f[place]and[place] Solution 00 ION (Same as: Proventil) Hydralazine 2018- No Notes: Kuldeep teto 3-11 (Same as: l 13:39: Apresoline [place] 00 ) Push over 5 minutes Hydromorpho 2018- No Notes: Kuldeep teto ne 3-11 Same as l 13:39: Dilaudid [place] 00 Morphine 2019-0 No Notes: Memoria 3-11 (Same l 13:39: as:MORPhin [place] 00 e Sulfate) Naloxone 2018-0 No Notes: Memoria 3-11 Same as l 13:39: Narcan [place] 00 Flumazenil 2018- No Notes: Memor ia 3-11 (Same as: l 13:39: Romazicon) [place] Dexamethaso 2019- No Notes: Kuldeep teto ne 3-11 Concentrat l 13:39: ion: [place] 00 4mg/ml Ondansetron 2019-0 No Notes: Kuldeep teto 3-11 (Same as: l 13:39: Zofran) [place] 00 MEDICATION WASTE Product Size: 4 mg Product Wasted: ___ mg Albuterol 2019-0 No Notes: SEE Me moria 0.83 MG/ML 3-11 RT l Inhalant 13:39: DOCUMENTAT Her fernand[place] Solution 00 ION (Same as: Proventil) Hydralazine 2019-0 No Notes: Kuldeep teto 3-11 (Same [...] INJ, ONCE, Stop date: 05/13/18 8:38:00 CDT esmolol No Route: IV, Kuldeep teto (ANES) 3-11 Drug form: l 13:38: INJ, ONCE, Stop date: 05/13/18 8:38:00 CDT esmolol No Route: IV, Kuldeep teto (ANES) 3-11 Drug form: l 13:38: INJ, ONCE, Stop date: 05/13/18 8:38:00 CDT esmolol No Route: IV, Kuldeep teto (ANES) 3-11 Drug form: l 13:38: INJ, ONCE, Stop date: 05/13/18 8:38:00 CDT fentaNYL No Route: IV, Mem oria (ANES) 3-11 Drug form: l 13:28: INJ, ONCE, Stop date: 05/13/18 8:28:00 CDT fentaNYL No Route: IV, Mem oria [...] 3-11 Drug form: l 13:23: SOLN, [place] ONCE, Stop date: 05/13/18 8:23:00 CDT rocuronium [...] 3-11 Drug form: l 13:23: SOLN, [place] ONCE, Stop date: 05/13/18 8:23:00 CDT rocuronium [...] 8:23:00 CDT rocuronium 2019-0 No Route: IV, Bradley emoria (ANES) 3-11 Drug form: l 13:23: INJ, ONCE, [place] 00 Stop date: 05/13/18 8:23:00 CDT lidocaine 2019-0 No Route: IV, Me moria (ANES) 3-11 Drug form: l 13:23: INJ, ONCE, Stop date: 05/13/18 8:23:00 CDT propofol 2019-0 No Route: IV, Mem oria (ANES) 3-11 Drug form: l 13:23: INJ, ONCE, Stop date: 05/13/18 8:23:00 CDT midazolam 2019-0 No Route: IV, Me moria (ANES) 3-11 Drug form: l 13:23: SOLN, [place] ONCE, Stop date: 05/13/18 8:23:00 CDT rocuronium 2019-0 No Route: IV, M emoria (ANES) 3-11 Drug form: l 13:23: INJ, ONCE, Stop date: 05/13/18 8:23:00 CDT lidocaine 2019-0 No Route: IV, Me moria (ANES) 3-11 Drug form: l 13:23: INJ, ONCE, Stop date: 05/13/18 8:23:00 CDT propofol 2019-0 No Route: IV, Mem oria (ANES) 3-11 Drug form: l 13:23: INJ, ONCE, [place] 00 Stop date: 05/13/18 8:23:00 CDT phenylephri 2019-0 No Route: IV, Memoria ne (ANES) 3-11 Drug form: l 13:18: INJ, ONCE, [place] 00 Stop date: 05/13/18 8:18:00 CDT phenylephri 2019-0 No Route: IV, Memoria ne (ANES) 3-11 Drug form: l 13:18: INJ, ONCE, [place] 00 Stop date: 05/13/18 8:18:00 CDT phenylephri 2019-0 [...] ONCE, Stop date: 05/13/18 8:08:00 CDT Lactated 2019-0 No Route: IV, Mem oria Ringers 3-11 Total l Injection 12:09: Volume: Marcia nn IV (ANES) 00 1,000, 1000 mL Start date: 05/13/18 7:09:00 CDT, Stop date: 05/13/18 8:09:00 CDT Lactated 2019-0 No Route: IV, Mem oria Ringers 3-11 Total l Injection 12:09: Volume: Marcia nn IV (ANES) 00 1,000, 1000 mL Start date: 05/13/18 7:09:00 CDT, Stop date: 05/13/18 8:09:00 CDT Lactated 2019-0 No Route: IV, Mem oria Ringers 3-11 [...] moria 3- infuse l 20:00: over 2.5 [place] 00 hours Vancomycin No 2001 mg: Me moria 3- infuse l 20:00: over 2.5 [place] 00 hours Vancomycin No 2001 mg: Me moria 3- infuse l 20:00: over 2.5 [place] 00 hours Vancomycin No 2001 mg: Me moria 3 infuse l 20:00: over 2.5 [place] 00 hours heparin No Notes: Memoria 3-09 porcine l 15:00: heparin [place] 00 heparin No Notes: Memoria 3-09 porcine l 15:00: heparin [place] 00 heparin No Notes: Memoria 3-09 porcine l 15:00: heparin [place] 00 heparin No Notes: Memoria 3-09 porcine l 15:00: heparin [place] 00 Acetaminoph No Notes: Kuldeep teto en 325 MG / 05-11 (Same as: l Hydrocodone 01:40: [place] Marcia nn Bitartrate 00 325/5) Do 5 MG Oral not exceed Tablet 4gm/day of [[place] acetaminop 5/325] hen. Acetaminoph No Notes: Kuldeep teto en 325 MG / 05-11 (Same as: l Hydrocodone 01:40: [place] Marcia nn Bitartrate 00 325/5) Do 5 MG Oral not exceed Tablet 4gm/day of [[place] acetaminop 5/325] hen. Acetaminoph No Notes: Kuldeep teto en 325 MG / 05-11 (Same as: l Hydrocodone 01:40: [place] Marcia nn Bitartrate 00 325/5) Do 5 MG Oral not exceed Tablet 4gm/day of [[place] acetaminop 5/325] hen. Acetaminoph No Notes: Kuldeep teto en 325 MG / 3-09 (Same as: l Hydrocodone 01:40: [place] Marcia nn Bitartrate 00 325/5) Do 5 MG Oral not exceed Tablet 4gm/day of [[place] acetaminop 5/325] hen. 24 HR No 25 mg, 1 Memoria Metoprolol 3-08 tab, l Tartrate 25 15:00: Route: PO, [place] MG Extended 00 Drug form: Release ERTAB, Tablet Daily, [Toprol] Start date: 05/10/18 9:00:00 HOUSE MANAGER, Duration: 30 day, Stop date: 06/08/18 9:00:00 CDT ferrous No Notes: Memoria sulfate 3-08 Dose=___mg l 15:00: elemental [place] 00 iron duloxetine No 30 mg, 1 Mem oria 3-08 cap, l 15:00: Route: PO, [place] 00 Drug form: DRC, Daily, Dosing Weight 80.909, kg, Start date: 05/10/18 9:00:00 HOUSE MANAGER, Duration: 30 day, Stop date: 06/08/18 9:00:00 CDT clopidogrel No Notes: Kuldeep teto 3-08 (Same As: l 15:00: Plavix) [place] 00 Lisinopril No Notes: Memor ia 3-08 (Same as: l 15:00: Prinivil, [place] 00 Zestril) 24 HR No 25 mg, 1 Memoria Metoprolol 3-08 tab, l Tartrate 25 15:00: Route: PO, [place] MG Extended 00 Drug form: Release ERTAB, Tablet Daily, [Toprol] Start date: 05/10/18 9:00:00 HOUSE MANAGER, Duration: 30 day, Stop date: 06/08/18 9:00:00 CDT ferrous No Notes: Memoria sulfate 3-08 Dose=___mg l 15:00: elemental [place] 00 iron duloxetine No 30 mg, 1 Mem oria 3-08 cap, l 15:00: Route: PO, [place] 00 Drug form: DRC, Daily, Dosing Weight 80.909, kg, Start date: 05/10/18 9:00:00 HOUSE MANAGER, Duration: 30 day, Stop date: 06/08/18 9:00:00 CDT clopidogrel 2018-0 No Notes: Kuldeep teto 3-08 (Same As: l 15:00: Plavix) Lisinopril 2018-0 No Notes: Memor ia 3-08 (Same as: l 15:00: Prinivil, [place] 00 Zestril) 24 HR No 25 mg, 1 Memoria Metoprolol 3-08 tab, l Tartrate 25 15:00: Route: PO, [place] MG Extended 00 Drug form: Release ERTAB, Tablet Daily, [Toprol] Start date: 05/10/18 9:00:00 HOUSE MANAGER, Duration: 30 day, Stop date: 06/08/18 9:00:00 CDT ferrous 2018-0 No Notes: Memoria sulfate 3-08 Dose=___mg l 15:00: elemental [place] iron duloxetine 0 No 30 mg, 1 Mem oria 3-08 cap, l 15:00: Route: PO, [place] 00 Drug form: DRC, Daily, Dosing Weight 80.909, kg, Start date: 05/10/18 9:00:00 HOUSE MANAGER, Duration: 30 day, Stop date: 06/08/18 9:00:00 CDT clopidogrel 2018-0 No Notes: Kuldeep teto 3-08 (Same As: l 15:00: Plavix) Lisinopril 2018-0 No Notes: Memor ia 3-08 (Same as: l 15:00: Prinivil, [place] 00 Zestril) 24 HR No 25 mg, 1 Memoria Metoprolol 3-08 tab, l Tartrate 25 15:00: Route: PO, [place] MG Extended 00 Drug form: Release ERTAB, Tablet Daily, [Toprol] Start date: 05/10/18 9:00:00 HOUSE MANAGER, Duration: 30 day, Stop date: 06/08/18 9:00:00 CDT ferrous 2019-0 No Notes: Memoria sulfate 3-08 Dose=___mg l 15:00: elemental [place] 00 iron duloxetine 2018-0 No 30 mg, 1 Mem oria 3-08 cap, l 15:00: Route: PO, [place] 00 Drug form: DRC, Daily, Dosing Weight 80.909, kg, Start date: 05/10/18 9:00:00 HOUSE MANAGER, Duration: 30 day, Stop date: 06/08/18 9:00:00 CDT clopidogrel 2019-0 No Notes: Kuldeep teto 3-08 (Same As: l 15:00: Plavix) [place] 00 Lisinopril 2018-0 No Notes: Memor ia 3-08 (Same as: l 15:00: Prinivil, [place] 00 Zestril) Saline 2018-0 No 10 mL, Memoria Flush 0.9% 3-08 Route: l 06:00: IVP, Drug Form: INJ, Dosing Weight 80.909, kg, Q8H, Start date: 05/10/18 0:00:00 HOUSE MANAGER, Duration: 30 day, Stop date: 06/08/18 16:00:00 CDT Saline 2018-0 No 10 mL, Memoria Flush 0.9% 3-08 Route: l 06:00: IVP, Drug Form: INJ, Dosing Weight 80.909, kg, Q8H, Start date: 05/10/18 0:00:00 HOUSE MANAGER, Duration: 30 day, Stop date: 06/08/18 16:00:00 CDT Saline 2018-0 No 10 mL, Memoria Flush 0.9% 3-08 Route: l 06:00: IVP, Drug Form: INJ, Dosing Weight 80.909, kg, Q8H, Start date: 05/10/18 0:00:00 HOUSE MANAGER, Duration: 30 day, Stop date: 06/08/18 16:00:00 CDT Saline 2018-0 No 10 mL, Memoria Flush 0.9% 3-08 Route: l 06:00: IVP, Drug Form: INJ, Dosing Weight 80.909, kg, Q8H, Start date: 05/10/18 0:00:00 HOUSE MANAGER, Duration: 30 day, Stop date: 06/08/18 16:00:00 CDT Mirtazapine 2018-0 No Notes: Kuldeep teto 3-08 (Same l 03:00: as:Remeron Seymour 00 ) Trazodone No Notes: Memori a Hydrochlori 3-08 (Same As: l de 50 MG 03:00: Desyrel) Marcia nn Oral Tablet atorvastati No Notes: Kuldeep teto n 3-08 (Same as: l 03:00: Lipitor) [place] Mirtazapine No Notes: Kuldeep teto 3-08 (Same l 03:00: as:Remeron [place] 00 ) Trazodone No Notes: Memori a Hydrochlori 3-08 (Same As: l de 50 MG 03:00: Desyrel) Marcia nn Oral Tablet atorvastati No Notes: Kuldeep teto n 3-08 (Same as: l 03:00: Lipitor) [place] Mirtazapine No Notes: Kuldeep teto 3-08 (Same l 03:00: as:Remeron [place] 00 ) Trazodone No Notes: Memori a Hydrochlori 3-08 (Same As: l de 50 MG 03:00: Desyrel) Marcia nn Oral Tablet atorvastati No Notes: Kuldeep teto n 3-08 (Same as: l 03:00: Lipitor) [place] Mirtazapine No Notes: Kuldeep teto 3-08 (Same l 03:00: as:Remeron ) Trazodone No Notes: Memori a Hydrochlori 3-08 (Same As: l de 50 MG 03:00: Desyrel) Marcia nn Oral Tablet atorvastati No Notes: Kuldeep teto n 3-08 (Same as: l 03:00: Lipitor) Saline No 10 mL, Memoria Flush 0.9% 3-07 Route: l 23:54: IVP, Drug Form: INJ, Dosing Weight 80.909, kg, PRN, PRN Line Flush, Start date: 05/09/18 17:54:00 HOUSE MANAGER, Duration: 30 day, Stop date: 06/08/18 18:53:00 CDT Saline No 10 mL, Memoria Flush 0.9% 3-07 Route: l 23:54: IVP, Drug Se[place] 00 Form: INJ, Dosing Weight 80.909, kg, PRN, PRN Line Flush, Start date: 05/09/18 17:54:00 HOUSE MANAGER, Duration: 30 day, Stop date: 06/08/18 18:53:00 CDT Saline 2018-0 No 10 mL, Memoria Flush 0.9% 3-07 Route: l 23:54: IVP, Drug Seymour 00 Form: INJ, Dosing Weight 80.909, kg, PRN, PRN Line Flush, Start date: 05/09/18 17:54:00 HOUSE MANAGER, Duration: 30 day, Stop date: 06/08/18 18:53:00 CDT Saline 2018-0 No 10 mL, Memoria Flush 0.9% 3- Route: l 23:54: IVP, Drug Seymour 00 Form: INJ, Dosing Weight 80.909, kg, PRN, PRN Line Flush, Start date: 05/09/18 17:54:00 HOUSE MANAGER, Duration: 30 day, Stop date: 06/08/18 18:53:00 CDT cefepime No Notes: Memoria 3-07 (Same As: l 23:00: Maxipime) [place] 00 MEDICATION WASTE Product Size: 1000 mg Product Wasted: ___ mg Buspirone No Notes: Memori a 3-07 (Same As: l 23:00: BuSpar) Seymour 00 cefepime No Notes: Memoria 3-07 (Same As: l 23:00: Maxipime) [place] 00 MEDICATION WASTE Product Size: 1000 mg Product Wasted: ___ mg Buspirone 2018- No Notes: Memori a 3-07 (Same As: l 23:00: BuSpar) Seymour cefepime No Notes: Memoria 3-07 (Same As: l 23:00: Maxipime) Seymour 00 MEDICATION WASTE Product Size: 1000 mg Product Wasted: ___ mg Buspirone 2018-0 No Notes: Memori a 3-07 (Same As: l 23:00: BuSpar) [place] 00 cefepime No Notes: Memoria 3-07 (Same As: l 23:00: Maxipime) [place] 00 MEDICATION WASTE Product Size: 1000 mg Product Wasted: ___ mg Buspirone No Notes: Memori a 3-07 (Same As: l 23:00: BuSpar) [place] 00 Alprazolam No Notes: Memor ia 0.25 MG [...] 3-07 (Same as: l Flush 22:00: BD [place] Posiflush) Vancomycin No Notes: For M emoria 3-07 adult l 22:00: patients [place] 00 only: Round to nearest 250 mg per Medical Staff approval MEDICATION WASTE Product Size: 1000 mg Product Wasted: ___ mg BD Normal No Notes: Memori a Saline 3-07 (Same as: l Flush 22:00: BD [place] Posiflush) Vancomycin No Notes: For M emoria 3-07 adult l 22:00: patients [place] 00 only: Round to nearest 250 mg per Medical Staff approval MEDICATION WASTE Product Size: 1000 mg Product Wasted: ___ mg BD Normal No Notes: Memori a Saline 3-07 (Same as: l Flush 22:00: BD [place] Posiflush) Vancomycin No Notes: For M emoria 3-07 adult l 22:00: patients [place] 00 only: Round to nearest 250 mg per Medical Staff approval MEDICATION WASTE Product Size: 1000 mg Product Wasted: ___ mg BD Normal No Notes: Memori a Saline 3-07 (Same as: l Flush 22:00: BD [place] Posiflush) Vancomycin No Notes: For Bradley cleaning 3 adult l 22:00: patients [place] 00 only: Round to nearest 250 mg per Medical Staff approval MEDICATION WASTE Product Size: 1000 mg Product Wasted: ___ mg Sodium No 25 mL, Memoria Chloride 3-07 Route: IV, l 0.9% IV 19:59: Start [place] 00 date: 05/09/18 13:59:00 HOUSE MANAGER, Duration: 30 day, Stop date: 06/08/18 14:58:00 CDT, PRN Line Flush BD Normal No Notes: Memori a Saline 3-07 (Same as: l Flush 19:59: BD [place] 00 Posiflush) Sodium No 25 mL, [facility] Chloride 3-07 Route: IV, l 0.9% IV 19:59: Start date: 05/09/18 13:59:00 HOUSE MANAGER, Duration: 30 day, Stop date: 06/08/18 14:58:00 CDT, PRN Line Flush BD Normal No Notes: Memori a Saline 3-07 (Same as: l Flush 19:59: BD [place] 00 Posiflush) Sodium No 25 mL, [facility] Chloride 3-07 Route: IV, l 0.9% IV 19:59: Start [place] 00 date: 05/09/18 13:59:00 HOUSE MANAGER, Duration: 30 day, Stop date: 06/08/18 14:58:00 CDT, PRN Line Flush BD Normal No Notes: Memori a Saline 3-07 (Same as: l Flush 19:59: BD [place] Posiflush) Sodium No 25 mL, [facility] Chloride 3-07 Route: IV, l 0.9% IV 19:59: Start [place] 00 date: 05/09/18 13:59:00 HOUSE MANAGER, Duration: 30 day, Stop date: 06/08/18 14:58:00 CDT, PRN Line Flush BD Normal No Notes: Memori a Saline 3-07 (Same as: l Flush 19:59: BD [place] 00 Posiflush) BD Normal No Notes: Memori a Saline 3-07 (Same as: l Flush 19:58: BD [place] 00 Posiflush) BD Normal No Notes: Memori a Saline 3-07 (Same as: l Flush 19:58: BD [place] 00 Posiflush) BD Normal No Notes: [facility]ori a Saline 3-07 (Same as: l Flush 19:58: BD [place] 00 Posiflush) BD Normal No Notes: Memori a Saline 3-07 (Same as: l Flush 19:58: BD [place] 00 Posiflush) tramadol Yes 100 mg = [...] mL, Route: l mg 19:28: INJ, Drug [place] injection 00 form: SOLN, ONCE, Dosing Weight 80.909, kg, Start date: 05/09/18 13:28:00 HOUSE MANAGER, Stop date: 05/09/18 13:28:00 HOUSE MANAGER, [place] CVAD < 7 [place] alteplase 2 No 1 mg, 1 Mem oria mg 3-07 mL, Route: l injection 19:28: INJ, Drug Her fernandes 00 form: SOLN, ONCE, Dosing Weight 80.909, kg, Start date: 05/09/18 13:28:00 HOUSE MANAGER, Stop date: 05/09/18 13:28:00 HOUSE MANAGER, [place] CVAD < 7 [place] Cathflo 2019-0 No 1 mg, 1 Memoria Activase 2 3-07 mL, Route: l mg 19:28: INJ, Drug [place] injection 00 form: SOLN, ONCE, Dosing Weight 80.909, kg, Start date: 05/09/18 13:28:00 HOUSE MANAGER, Stop date: 05/09/18 13:28:00 HOUSE MANAGER, [place] CVAD < 7 [place] alteplase 2 2019-0 No 1 mg, 1 Mem oria mg 3-07 mL, Route: l injection 19:28: INJ, Drug Her fernand[place] 00 form: SOLN, ONCE, Dosing Weight 80.909, kg, Start date: 05/09/18 13:28:00 HOUSE MANAGER, Stop date: 05/09/18 13:28:00 HOUSE MANAGER, [place] CVAD < 7 [place] Cathflo 2019-0 No 1 mg, 1 [facility] Activase 2 3-07 mL, Route: l mg 19:28: INJ, Drug [place] injection 00 form: SOLN, ONCE, Dosing Weight 80.909, kg, Start date: 05/09/18 13:28:00 HOUSE MANAGER, Stop date: 05/09/18 13:28:00 HOUSE MANAGER, [place] CVAD < 7 [place] alteplase 2 2019-0 No 1 mg, 1 Mem oria mg 3-07 mL, Route: l injection 19:28: INJ, Drug Her fernandes 00 form: SOLN, ONCE, Dosing Weight 80.909, kg, Start date: 05/09/18 13:28:00 HOUSE MANAGER, Stop date: 05/09/18 13:28:00 HOUSE MANAGER, [place] CVAD < 7 [place] Cathflo 2019-0 No 1 mg, 1 [facility] Activase 2 3-07 mL, Route: l mg 19:28: INJ, Drug [place] injection 00 form: SOLN, ONCE, Dosing Weight 80.909, kg, Start date: 05/09/18 13:28:00 HOUSE MANAGER, Stop date: 05/09/18 13:28:00 HOUSE MANAGER, [place] CVAD < 7 [place] alteplase 2 2019-0 No 1 mg, 1 Mem oria mg 3-07 mL, Route: l injection 19:28: INJ, Drug Her fernand[place] 00 form: SOLN, ONCE, Dosing Weight 80.909, kg, Start date: 05/09/18 13:28:00 HOUSE MANAGER, Stop date: 05/09/18 13:28:00 HOUSE MANAGER, [place] CVAD < 7 [place] Morphine 2019-0 No Notes: Memoria 3-07 (Same l 19:09: as:MORPhin [place] 00 e Sulfate) Acetaminoph No Notes: Do M emoria en 3-07 not exceed l 19:09: 4 gm/day. [place] 00 (Same as: Tylenol) Ondansetron No Notes: Kuldeep teto 3-07 (Same as: l 19:09: Zofran [place] 00 ODT) Glucagon No 1 mg, Memoria 3-07 Route: IM, l 19:09: Drug form: [place] 00 PDR/INJ, PRN, Dosing Weight 80.909, kg, PRN Blood Glucose Results, Start date: 05/09/18 13:09:00 HOUSE MANAGER, Duration: 30 day, Stop date: 06/08/18 14:08:00 CDT Dextrose 2019- No 12.5 gm, Memor ia 50% Syringe 3-07 25 mL, l 19:09: Route: [place] 00 IVP, Drug Form: INJ, Dosing Weight 80.909, kg, PRN, PRN Blood Glucose Results, Start date: 05/09/18 13:09:00 HOUSE MANAGER, Duration: 30 day, Stop date: 06/08/18 14:08:00 CDT Morphine 2018-0 No Notes: [facility] 3-07 (Same l 19:09: as:MORPhin [place] 00 e Sulfate) Acetaminoph No Notes: Do M emoria en 3-07 not exceed l 19:09: 4 gm/day. [place] 00 (Same as: Tylenol) Ondansetron 2018-0 No Notes: Kuldeep teto 3-07 (Same as: l 19:09: Zofran [place] 00 ODT) Morphine 2018-0 No Notes: [facility]oria 3-07 (Same l 19:09: as:MORPhin [place] 00 e Sulfate) Acetaminoph 0 No Notes: Do M emoria en 3-07 not exceed l 19:09: 4 gm/day. [place] 00 (Same as: Tylenol) Ondansetron 0 No Notes: Kuldeep teto 3-07 (Same as: l 19:09: Zofran [place] 00 ODT) Glucagon 2019-0 No 1 mg, Memoria 3- Route: IM, l 19:09: Drug form: [place] 00 PDR/INJ, PRN, Dosing Weight 80.909, kg, PRN Blood Glucose Results, Start date: 05/09/18 13:09:00 HOUSE MANAGER, Duration: 30 day, Stop date: 06/08/18 14:08:00 CDT Dextrose 2018-0 No 12.5 gm, Memor ia 50% Syringe 3-07 25 mL, l 19:09: Route: [place] 00 IVP, Drug Form: INJ, Dosing Weight 80.909, kg, PRN, PRN Blood Glucose Results, Start date: 05/09/18 13:09:00 HOUSE MANAGER, Duration: 30 day, Stop date: 06/08/18 14:08:00 CDT Glucagon 2018-0 No 1 mg, Memoria 05-09 Route: IM, l 19:09: Drug form: [place] 00 PDR/INJ, PRN, Dosing Weight 80.909, kg, PRN Blood Glucose Results, Start date: 05/09/18 13:09:00 HOUSE MANAGER, Duration: 30 day, Stop date: 06/08/18 14:08:00 CDT Dextrose 2019-0 No 12.5 gm, Memor ia 50% Syringe 3-07 25 mL, l 19:09: Route: [place] 00 IVP, Drug Form: INJ, Dosing Weight 80.909, kg, PRN, PRN Blood Glucose Results, Start date: 05/09/18 13:09:00 HOUSE MANAGER, Duration: 30 day, Stop date: 06/08/18 14:08:00 CDT Morphine 2018-0 No Notes: [facility] 3-07 (Same l 19:09: as:MORPhin [place] 00 e Sulfate) Acetaminoph No Notes: Do M emoria en - not exceed l 19:09: 4 gm/day. [place] 00 (Same as: Tylenol) Ondansetron 0 No Notes: Kuldeep teto 3-07 (Same as: l 19:09: Janes Ahuja ODT) Glucagon 2019-0 No 1 mg, Memoria 3-07 Route: IM, l 19:09: Drug form: [place] 00 PDR/INJ, PRN, Dosing Weight 80.909, kg, PRN Blood Glucose Results, Start date: 05/09/18 13:09:00 HOUSE MANAGER, Duration: 30 day, Stop date: 06/08/18 14:08:00 CDT Dextrose 2019-0 No 12.5 gm, Memor ia 50% Syringe 05-09 25 mL, l 19:09: Route: [place] 00 IVP, Drug Form: INJ, Dosing Weight 80.909, kg, PRN, PRN Blood Glucose Results, Start date: 05/09/18 13:09:00 HOUSE MANAGER, Duration: 30 day, Stop date: 06/08/18 14:08:00 CDT TRAMADOL 50 2019-0 Yes [id number] TAKE ONE [facility] mg tablet 3-07 TABLET BY ity o f 00:00: MOUTH FOUR 00 TIMES A Medical DAY Branch TRAMADOL 50 2019-0 Yes [id number] TAKE ONE [facility] mg tablet 3-07 TABLET BY ity o f 00:00: MOUTH FOUR 00 TIMES A Medical DAY Branch TRAMADOL 50 2019-0 2020- No [id number] TAKE ONE [facility] mg tablet 3-09 10-10 TABLET BY ity of 00:00: 00:00 MOUTH FOUR 00 :00 TIMES A Medical DAY Branch TRAMADOL 50 2019-0 2020- No [id number] TAKE ONE [facility] mg tablet 3-09 10-10 TABLET BY ity of 00:00: 00:00 MOUTH FOUR [place] 00 :00 TIMES A Medical DAY Branch midodrine 2019-0 Yes 2.5mg Take 1 Un[facility] rs 2.5 mg 2-08 tablet by ity of tablet 00:00: mouth 2 00 (two) Medical times Branch daily. midodrine 2019-0 Yes 2.5mg Take 1 [facility] rs 2.5 mg 2-08 tablet by ity of tablet 00:00: mouth 2 00 (two) Medical times Branch daily. midodrine 2019-0 2020- No 2.5mg Take 1 Univ ers 2.5 mg 2-08 09-10 tablet by ity of tablet 00:00: 00:00 mouth 2 [place] 00 :00 (two) Medical times Branch daily. midodrine 2020- No 2.5mg Take 1 Univ ers 2.5 mg 04-12 09-10 tablet by ity of tablet 00:00: 00:00 mouth 2 [place] 00 :00 (two) Medical times Branch daily. Lasix 2017-03 No Notes: Memoria 2-29 (Same as: l 15:00: Lasix) May [place] 00 cause GI upset. Give with food or milk. Lasix 2017-03 No Notes: Memoria 2-29 (Same as: l 15:00: Lasix) May [place] 00 cause GI upset. Give with food or milk. Lasix 2017-03 No Notes: Memoria 2-29 (Same as: l 15:00: Lasix) May [place] 00 cause GI upset. Give with food or milk. Lasix 2017-03 No Notes: Memoria 2-29 (Same as: l 15:00: Lasix) May [place] 00 cause GI upset. Give with food [...] s with feeding tube less than 14 [place] (Dobhoff, J-tube etc) and pediatric and patients. Potassium 2017-03 No Notes: Memori a Chloride 2-28 (Same as: l 18:32: K-Dur 20) [place] 00 "Do Not Crush" Give with food and full glass of water For patients unable to swallow tablet, dissolve in one half glass of water. Allow about 2 minutes for the tablets to disintegra te. Stir before giving to prepare slurry and administer . Please exclude Patient s with feeding tube less than 14 [place] (Dobhoff, J-tube etc) and pediatric and patients. Potassium 2017-03 No Notes: Memori a Chloride 2-28 (Same as: l 18:32: K-Dur 20) [place] 00 "Do Not Crush" Give with food and full glass of water For patients unable to swallow tablet, dissolve in one half glass of water. Allow about 2 minutes for the tablets to disintegra te. Stir before giving to prepare slurry and administer . Please exclude Patient s with feeding tube less than 14 [place] (Dobhoff, J-tube etc) and pediatric and patients. Potassium 2017- No Notes: Memori a Chloride 2-28 (Same as: l 18:32: K-Dur 20) [place] 00 "Do Not Crush" Give with food and full glass of water For patients unable to swallow tablet, dissolve in one half glass of water. Allow about 2 minutes for the tablets to disintegra te. Stir before giving to prepare slurry and administer . Please exclude Patient s with feeding tube less than 14 [place] (Dobhoff, J-tube etc) and pediatric and patients. Rocephin 1 2017-03 No 2 gm, IV, Me moria g injection 2-28 Q24H, X 14 l 18:26: day, # 14 [place] 00 ea, 0 Refill(s), other Furosemide 2017-03 No 20 mg = 1 Me moria 20 MG Oral 2-28 tab, PO, l Tablet 18:26: Daily, # [place] 00 30 tab, 0 Refill(s), Pharmacy: [facility] [id number] Rocephin 1 2017-03 No 2 gm, IV, Me moria g injection 2-28 Q24H, X 14 l 18:26: day, # 14 [place] 00 ea, 0 Refill(s), other Furosemide 2017-03 No 20 mg = 1 Me moria 20 MG Oral 2-28 tab, PO, l Tablet 18:26: Daily, # [place] 00 30 tab, 0 Refill(s), Pharmacy: [facility] [id number] Rocephin 1 2017-03 No 2 gm, IV, Me moria g injection 2-28 Q24H, X 14 l 18:26: day, # 14 [place] 00 ea, 0 Refill(s), other Furosemide 2017-03 No 20 mg = 1 Me moria 20 MG Oral 2-28 tab, PO, l Tablet 18:26: Daily, # [place] 00 30 tab, 0 Refill(s), Pharmacy: [facility] [id number] Rocephin 1 2017-03 No 2 gm, IV, Me moria g injection 2-28 Q24H, X 14 l 18:26: day, # 14 [place] 00 ea, 0 Refill(s), other Furosemide 2017-03 No 20 mg = 1 Me moria 20 MG Oral 2-28 tab, PO, l Tablet 18:26: Daily, # [place] 00 30 tab, 0 Refill(s), Pharmacy: [facility] [id number] Potassium 2017-03 No Notes: Memori a Chloride [...] s with feeding tube less than 14 [place] (Dobhoff, J-tube etc) and pediatric and patients. Potassium 2017-03 No Notes: Memori a Chloride 2-28 (Same as: l 16:19: K-Dur 20) [place] 00 "Do Not Crush" Give with food and full glass of water For patients unable to swallow tablet, dissolve in one half glass of water. Allow about 2 minutes for the tablets to disintegra te. Stir before giving to prepare slurry and administer . Please exclude Patient s with feeding tube less than 14 [place] (Dobhoff, J-tube etc) and pediatric and patients. Potassium 2017-03 No Notes: Memori a Chloride 2-28 (Same as: l 16:19: K-Dur 20) [place] 00 "Do Not Crush" Give with food and full glass of water For patients unable to swallow tablet, dissolve in one half glass of water. Allow about 2 minutes for the tablets to disintegra te. Stir before giving to prepare slurry and administer . Please exclude Patient s with feeding tube less than 14 [place] (Dobhoff, J-tube etc) and pediatric and patients. Potassium 2017-03 No Notes: Memori a Chloride 2-28 (Same as: l 16:19: K-Dur 20) [place] 00 "Do Not Crush" Give with food and full glass of water For patients unable to swallow tablet, dissolve in one half glass of water. Allow about 2 minutes for the tablets to disintegra te. Stir before giving to prepare slurry and administer . Please exclude Patient s with feeding tube less than 14 [place] (Dobhoff, J-tube etc) and pediatric and patients. [...] Kuldeep teto 2-28 (Same l 03:00: as:Remeron [place] ) atorvastati 2017-03 No Notes: Kuldeep teto n 2-28 (Same as: l 03:00: Lipitor) [place] Trazodone 2017-03 No Notes: Memori a Hydrochlori 2-28 (Same As: l de 50 MG 03:00: Desyrel) Marcia nn Oral Tablet 00 Mirtazapine 2017-03 No Notes: Kuldeep teto 2-28 (Same l 03:00: as:Remeron [place] ) atorvastati 2017-03 No Notes: Kuldeep teto n 2-28 (Same as: l 03:00: Lipitor) [place] Trazodone 2017-03 No Notes: Memori a Hydrochlori 2-28 (Same As: l de 50 MG 03:00: Desyrel) Marcia nn Oral Tablet 00 Mirtazapine 2017-03 No Notes: Kuldeep teto 2-28 (Same l 03:00: as:Remeron [place] 00 ) atorvastati 2017-03 No Notes: Kuldeep teto n 2-28 (Same as: l 03:00: Lipitor) [place] Trazodone 2017-03 No Notes: Memori a Hydrochlori 2-28 (Same As: l de 50 MG 03:00: Desyrel) Marcia nn Oral Tablet 00 Mirtazapine 2017-03 No Notes: Kuldeep teto 2-28 (Same l 03:00: as:Remeron [place] 00 ) Beneprotein 2017-03 No Notes: Kuldeep teto 7 gm pkt 2-27 (Same as: l 22:30: Beneprotei [place] 00 n) Beneprotein 2017-03 No Notes: Kuldeep teto 7 gm pkt 2-27 (Same as: l 22:30: Beneprotei [place] 00 n) Beneprotein 2017-03 No Notes: Kuldeep teto 7 gm pkt 2-27 (Same as: l 22:30: Beneprotei [place] 00 n) Beneprotein 2017-03 No Notes: Kuldeep teto 7 gm pkt 2-27 (Same as: l 22:30: Beneprotei [place] 00 n) Ceftriaxone 2017-03 No Notes: Kuldeep teto 2-27 (Same As: l 19:00: Rocephin). [place] 00 Use with 100 mL NS and infuse over 30 min MEDICATION WASTE Product Size: 2000 mg Product Wasted: ___ mg Ceftriaxone 2017-03 No Notes: Kuldeep teto 2-27 (Same As: l 19:00: Rocephin). [place] 00 Use with 100 mL NS and infuse over 30 min MEDICATION WASTE Product Size: 2000 mg Product Wasted: ___ mg Ceftriaxone 2017-03 No Notes: Kuldeep teto 2-27 (Same As: l 19:00: Rocephin). [place] Use with 100 mL NS and infuse over 30 min MEDICATION WASTE Product Size: 2000 mg Product Wasted: ___ mg Ceftriaxone 2017-03 No Notes: Kuldeep teto 2-27 (Same As: l 19:00: Rocephin). [place] Use with 100 mL NS and infuse over 30 min MEDICATION WASTE Product Size: 2000 mg Product Wasted: ___ mg ferrous 2017-03 No Notes: Memoria sulfate 2-27 Give with l 15:24: food. iron [place] 00 elemental [id number] as ferrous sulfate Dose=___mg elemental iron duloxetine 2017-03 No Notes: Memor ia 2-27 (Same as: l 15:24: Cymbalta) [place] (Do Not Crush) clopidogrel 2017-03 No Notes: Kuldeep teto 2-27 (Same As: l 15:24: Plavix) [place] Buspirone 2017-03 No Notes: Memori a 2-27 (Same As: l 15:24: BuSpar) [place] Vancomycin 2017-03 No 2001 mg: Me moria 2-27 infuse l 15:24: over 2.5 [place] 00 hours metoprolol 2017-03 No Notes: Memor ia extended 2-27 (Same as: l release 15:24: Toprol XL) Herm ladi Do Not Crush Lisinopril 2017-03 No Notes: Memor ia 2-27 (Same as: l 15:24: Prinivil, [place] 00 Zestril) ferrous 2017-03 No Notes: Memoria sulfate 2-27 Give with l 15:24: food. iron [place] 00 elemental [id number] as ferrous sulfate Dose=___mg elemental iron duloxetine 2017-03 No Notes: Memor ia 2-27 (Same as: l 15:24: Cymbalta) [place] (Do Not Crush) clopidogrel 2017-03 No Notes: Kuldeep teto 2-27 (Same As: l 15:24: Plavix) [place] Buspirone 2017-03 No Notes: Memori a 2-27 (Same As: l 15:24: BuSpar) [place] Vancomycin 2017-03 No 2001 mg: Me moria 2-27 infuse l 15:24: over 2.5 [place] 00 hours metoprolol 2017-03 No Notes: Memor ia extended 2-27 (Same as: l release 15:24: Toprol XL) Herm ladi 00 Do Not Crush Lisinopril 2017-03 No Notes: Memor ia 2-27 (Same as: l 15:24: Prinivil, [place] 00 Zestril) ferrous 2017-03 No Notes: Memoria sulfate 2-27 Give with l 15:24: food. iron [place] 00 elemental [id number] as ferrous sulfate Dose=___mg elemental iron duloxetine 2017-03 No Notes: Memor ia 2-27 (Same as: l 15:24: Cymbalta) [place] 00 (Do Not Crush) clopidogrel 2017-03 No Notes: Kuldeep teto 2-27 (Same As: l 15:24: Plavix) [place] 00 Buspirone 2017-03 No Notes: Memori a 2-27 (Same As: l 15:24: BuSpar) [place] 00 Vancomycin 2017-03 No 2001 mg: Me moria 2-27 infuse l 15:24: over 2.5 [place] 00 hours metoprolol 2017-03 No Notes: Memor ia extended 2- (Same as: l release 15:24: Toprol XL) Herm ladi 00 Do Not Crush Lisinopril 2017-03 No Notes: Memor ia 2-27 (Same as: l 15:24: Prinivil, [place] 00 Zestril) ferrous 2017-03 No Notes: Memoria sulfate 2-27 Give with l 15:24: food. iron elemental [id number] as ferrous sulfate Dose=___mg elemental iron duloxetine 2017-03 No Notes: Memor ia 2-27 (Same as: l 15:24: Cymbalta) [place] 00 (Do Not Crush) clopidogrel 2017-03 No Notes: Kuldeep teto 2-27 (Same As: l 15:24: Plavix) [place] 00 Buspirone 2017-03 No Notes: Memori a 2-27 (Same As: l 15:24: BuSpar) [place] 00 Vancomycin 2017-03 No 2001 mg: Me moria 2-27 infuse l 15:24: over 2.5 [place] 00 hours metoprolol 2017-03 No Notes: Memor ia extended 2-27 (Same as: l release 15:24: Toprol XL) Herm ladi 00 Do Not Crush Lisinopril 2017-03 No Notes: Memor ia 2-27 (Same as: l 15:24: Prinivil, [place] 00 Zestril) Enoxaparin 2017-03 No Notes: Memor ia 2-27 (Same as: l 15:00: Lovenox) [place] Saline 2017-03 No Notes: Memoria Flush 0.9% 2-27 (Same as: l 15:00: BD [place] Posiflush) Furosemide 2017-03 No Notes: Memor ia 2-27 (Same as: l 15:00: Lasix) [place] 00 MEDICATION WASTE Product Size: 40 mg Product Wasted: ___ mg Enoxaparin 2017-03 No Notes: Memor ia 2-27 (Same as: l 15:00: Lovenox) [place] Saline 2017-03 No Notes: Memoria Flush 0.9% 2-27 (Same as: l 15:00: BD [place] Posiflush) Furosemide 2017-03 No Notes: Memor ia 2-27 (Same as: l 15:00: Lasix) [place] 00 MEDICATION WASTE Product Size: 40 mg Product Wasted: ___ mg Enoxaparin 2017-03 No Notes: Memor ia 2-27 (Same as: l 15:00: Lovenox) [place] 00 Saline 2017-03 No Notes: Memoria Flush 0.9% 2-27 (Same as: l 15:00: BD [place] Posiflush) Furosemide 2017-03 No Notes: Memor ia 2-27 (Same as: l 15:00: Lasix) [place] 00 MEDICATION WASTE Product Size: 40 mg Product Wasted: ___ mg Enoxaparin 2017-03 No Notes: Memor ia 2-27 (Same as: l 15:00: Lovenox) [place] Saline 2017-03 No Notes: Memoria Flush 0.9% 2-27 (Same as: l 15:00: BD [place] Posiflush) Furosemide 2017-03 No Notes: Memor ia 2-27 (Same as: l 15:00: Lasix) [place] 00 MEDICATION WASTE Product Size: 40 mg Product Wasted: ___ mg Dexamethaso 2017-03 No Notes: Kuldeep teto ne 2- Concentrat l 09:59: ion: [place] 4mg/ml Dexamethaso 2017-03 No Notes: Kuldeep teto ne 2-27 Concentrat l 09:59: ion: [place] 00 4mg/ml Dexamethaso 2017-03 No Notes: Kuldeep teto ne 2-27 Concentrat l 09:59: ion: [place] 00 4mg/ml Dexamethaso 2017-03 No Notes: Kuldeep teto ne 2-27 Concentrat l 09:59: ion: [place] 00 4mg/ml Benadryl 2017-03 No Notes: Memoria 2-27 (Same as: l 08:25: Benadryl) [place] 00 Benadryl 2017-03 No Notes: Memoria 2-27 (Same as: l 08:25: Benadryl) [place] 00 Benadryl 2017-03 No Notes: Memoria 2-27 (Same as: l 08:25: Benadryl) [place] 00 Benadryl 2017-03 No Notes: Memoria 2-27 (Same as: l 08:25: Benadryl) [place] 00 Saline 2017-03 No Notes: Memoria Flush 0.9% 2-27 (Same as: l 08:24: BD [place] 00 Posiflush) Saline 2017-03 No Notes: Memoria Flush 0.9% 2-27 (Same as: l 08:24: BD [place] 00 Posiflush) Saline 2017-03 No Notes: Memoria Flush 0.9% 2-27 (Same as: l 08:24: BD [place] 00 Posiflush) Saline 2017-03 No Notes: Memoria Flush 0.9% 2-27 (Same as: l 08:24: BD [place] Posiflush) Benadryl 2017-03 No Notes: Memoria 2-27 (Same as: l 06:45: Benadryl) Dexamethaso 2017-03 No 12 mg, 3 Me moria ne 2-27 mL, Route: l 06:45: IVP, Drug form: INJ, ONCE, Dosing Weight 83.182, kg, Priority: STAT, Start date: 02/28/18 0:45:00 HOUSE MANAGER, 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/28/18 0:45:00 HOUSE MANAGER Benadryl 2017-03 No Notes: Memoria 2-27 (Same as: l 06:45: Benadryl) [place] 00 Dexamethaso 2017-03 No 12 mg, 3 Me moria ne 2-27 mL, Route: l 06:45: IVP, Drug [place] 00 form: INJ, ONCE, Dosing Weight 83.182, kg, Priority: STAT, Start date: 02/28/18 0:45:00 HOUSE MANAGER, 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/28/18 0:45:00 HOUSE MANAGER Benadryl 2017-03 No Notes: Memoria 2-27 (Same as: l 06:45: Benadryl) [place] 00 Dexamethaso 2017-03 No 12 mg, 3 Me moria ne 2-27 mL, Route: l 06:45: IVP, Drug [place] 00 form: INJ, ONCE, Dosing Weight 83.182, kg, Priority: STAT, Start date: 02/28/18 0:45:00 HOUSE MANAGER, 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/28/18 0:45:00 HOUSE MANAGER Benadryl 2017-03 No Notes: Memoria 2-27 (Same as: l 06:45: Benadryl) [place] 00 Dexamethaso 2017-03 No 12 mg, 3 Me moria ne 2-27 mL, Route: l 06:45: IVP, Drug [place] 00 form: INJ, ONCE, Dosing Weight 83.182, kg, Priority: STAT, Start date: 02/28/18 0:45:00 HOUSE MANAGER, 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/28/18 0:45:00 HOUSE MANAGER tramadol 2017-03 No 50 mg = 1 [...] l de 50 MG 18:02: Q8H, PRN Amrcia nn Oral Tablet 00 Pain, X 3 day, # 7 tab, 0 Refill(s) vancomycin 2017-03 No 1.25 gm = Me moria 1.25 g/250 2-20 250 mL, l mL-NaCl 17:58: IVPB, [place] 0.9% 00 Q12H, 0 intravenous Refill(s) solution [...] tab, PO, l tablet 17:58: Daily, 0 [place] 00 Refill(s) ferrous 2017-03 No 325 mg [...] tab, PO, l tablet 17:58: Daily, 0 [place] 00 Refill(s) ferrous 2017-03 No 325 mg = 1 Kuldeep teto sulfate 325 2-20 tab, PO, l MG Oral 17:58: Daily, 0 Arsenio n Tablet 00 Refill(s) Vancomycin 2017-03 No 2001 mg: Me moria 2-20 infuse l 03:00: over 2.5 [place] 00 hours Vancomycin 2017-03 No 2001 mg: Me moria 2-20 infuse l 03:00: over 2.5 [place] 00 hours Vancomycin 2017-03 No 2001 mg: Me moria 2-20 infuse l 03:00: over 2.5 [place] 00 hours Vancomycin 2017-03 No 2001 mg: Me moria 2-20 infuse l 03:00: over 2.5 [place] 00 hours Fleet Enema 2017-03 No 12 years, Memoria 2-19 Pediatric l 17:47: Dosing [place] 00 Fleet Enema 2017-03 No 12 years, Memoria 2-19 Pediatric l 17:47: Dosing [place] 00 Fleet Enema 2017-03 No 14 years, Memoria 2-19 Pediatric l 17:47: Dosing [place] 00 Fleet Enema 2017-03 No 14 years, Memoria 2-19 Pediatric l 17:47: Dosing [place] 00 Lisinopril 2017-03 No Notes: Memor ia 2-19 (Same as: l 15:18: Prinivil, [place] 00 Zestril) Lisinopril 2017-03 No Notes: Memor ia 2-19 (Same as: l 15:18: Prinivil, [place] 00 Zestril) Lisinopril 2017-03 No Notes: Memor ia 2-19 (Same as: l 15:18: Prinivil, [place] 00 Zestril) Lisinopril 2017-03 No Notes: Memor ia 2-19 (Same as: l 15:18: Prinivil, [place] 00 Zestril) Sodium 2017-03 No 25 mL, Memoria Chloride 2-18 Route: IV, l 0.9% IV 14:04: Start date: 02/19/18 8:04:00 HOUSE MANAGER, Duration: 30 day, Stop date: 03/21/18 8:03:00 HOUSE MANAGER, PRN Line Flush BD Normal 2017-03 No Notes: Memori a Saline 2-18 (Same as: l Flush 14:04: BD [place] 00 Posiflush) Sodium 2017-03 No 25 mL, Memoria Chloride 2-18 Route: IV, l 0.9% IV 14:04: Start date: 02/19/18 8:04:00 HOUSE MANAGER, Duration: 30 day, Stop date: 03/21/18 8:03:00 HOUSE MANAGER, PRN Line Flush BD Normal 2017-03 No Notes: Memori a Saline 2-18 (Same as: l Flush 14:04: BD [place] 00 Posiflush) Sodium 2017-03 No 25 mL, Memoria Chloride 2-18 Route: IV, l 0.9% IV 14:04: Start date: 02/19/18 8:04:00 HOUSE MANAGER, Duration: 30 day, Stop date: 03/21/18 8:03:00 HOUSE MANAGER, PRN Line Flush BD Normal 2017-03 No Notes: Memori a Saline 2-18 (Same as: l Flush 14:04: BD [place] 00 Posiflush) Sodium 2017-03 No 25 mL, Memoria Chloride 2-18 Route: IV, l 0.9% IV 14:04: Start date: 02/19/18 8:04:00 HOUSE MANAGER, Duration: 30 day, Stop date: 03/21/18 8:03:00 HOUSE MANAGER, PRN Line Flush BD Normal 2017-03 No [...] Memoria Sulfate 2-17 (Zinc l 19:30: sulfate [place] 00 capsule) - 220 mg Zinc sulfate = 50 mg elemental zinc Same as Zinc Sulfate Beneprotein 2017-03 No Notes: Kuldeep teto 7 gm pkt 2-17 (Same as: l 18:38: Beneprotei [place] 00 n) Beneprotein 2017-03 No Notes: Kuldeep teto 7 gm pkt 2-17 (Same as: l 18:38: Beneprotei [place] 00 n) Beneprotein 2017-03 No Notes: Kuldeep teto 7 gm pkt 2-17 (Same as: l 18:38: Beneprotei [place] 00 n) Beneprotein 2017-03 No Notes: Kuldeep teto 7 gm pkt 2-17 (Same as: l 18:38: Beneprotei [place] 00 n) ferrous 2017-03 No Notes: Memoria sulfate 2-17 Give with l 16:37: food. iron [place] 00 elemental [id number] as ferrous sulfate Dose=___mg elemental iron ferrous 2017-03 No Notes: Memoria sulfate 2-17 Give with l 16:37: food. iron [place] 00 elemental [id number] as ferrous sulfate Dose=___mg elemental iron ferrous 2017-03 No Notes: Memoria sulfate 2-17 Give with l 16:37: food. iron [place] 00 elemental [id number] as ferrous sulfate Dose=___mg elemental iron ferrous 2017-03 No Notes: Memoria sulfate 2-17 Give with l 16:37: food. iron [place] 00 elemental [id number] as ferrous sulfate Dose=___mg elemental iron Docusate 2017-03 No Notes: Memoria Sodium 100 2-17 (Same as: l MG Oral 03:00: Colace) [place] Capsule 00 (Do Not Crush) Docusate 2017-03 No Notes: Memoria Sodium 100 2-17 (Same as: l MG Oral 03:00: Colace) [place] Capsule 00 (Do Not Crush) Docusate 2017-03 No Notes: Memoria Sodium 100 2-17 (Same as: l MG Oral 03:00: Colace) [place] Capsule 00 (Do Not Crush) Docusate 2017-03 No Notes: Memoria Sodium 100 2-17 (Same as: l MG Oral 03:00: Colace) [place] Capsule 00 (Do Not Crush) Miralax 2017-03 No Notes: Memoria 2-16 Dissolve l 15:49: in 8 oz of [place] 00 water or juice. (Same as: Miralax) Miralax 2017-03 No Notes: Memoria 2-16 Dissolve l 15:49: in 8 oz of [place] 00 water or juice. (Same as: Miralax) Miralax 2017-03 No Notes: Memoria 2-16 Dissolve l 15:49: in 8 oz of [place] 00 water or juice. (Same as: Miralax) Miralax 2017-03 No Notes: Memoria 2-16 Dissolve l 15:49: in 8 oz of [place] 00 water or juice. (Same as: Miralax) Vancomycin 2017-03 No 2001 mg: Me moria 2-15 infuse l 21:00: over 2.5 [place] 00 hours Vancomycin 2017-03 No 2001 mg: Me moria 2-15 infuse l 21:00: over 2.5 [place] 00 hours Vancomycin 2017-03 No 2001 mg: Me moria 2-15 infuse l 21:00: over 2.5 [place] 00 hours Vancomycin 2017-03 No 2001 mg: Me moria 2-15 infuse l 21:00: over 2.5 [place] 00 hours Saline 2017-03 No Notes: Memoria Flush 0.9% 2-14 (Same as: l 22:00: BD [place] 00 Posiflush) Saline 2017-03 No Notes: Memoria Flush 0.9% 2-14 (Same as: l 22:00: BD [place] 00 Posiflush) Saline 2017-03 No Notes: Memoria Flush 0.9% 2-14 (Same as: l 22:00: BD [place] 00 Posiflush) Saline 2017-03 No Notes: Memoria Flush 0.9% 2-14 (Same as: l 22:00: BD [place] 00 Posiflush) Saline 2017-03 No Notes: Memoria Flush 0.9% 2-14 (Same as: l 17:44: BD [place] 00 Posiflush) Saline 2017-03 No Notes: Memoria Flush 0.9% 2-14 (Same as: l 17:44: BD [place] 00 Posiflush) Saline 2017-03 No Notes: Memoria Flush 0.9% 2-14 (Same as: l 17:44: BD [place] 00 Posiflush) Saline 2017-03 No Notes: Memoria Flush 0.9% 2-14 (Same as: l 17:44: BD [place] 00 Posiflush) morphine 2017-03 No Notes: Memoria Sulfate 2-14 (Same l 15:35: as:MORPhin [place] 00 e Sulfate) morphine 2017-03 No Notes: [facility] Sulfate 2-14 (Same l 15:35: as:MORPhin [place] 00 e Sulfate) morphine 2017-03 No Notes: [facility]oria Sulfate 2-14 (Same l 15:35: as:MORPhin [place] 00 e Sulfate) morphine 2017-03 No Notes: [facility]oria Sulfate 2-14 (Same l 15:35: as:MORPhin [place] 00 e Sulfate) Docusate 2017-03 No Notes: Memoria Sodium 100 2-14 (Same as: l MG Oral 15:00: Colace) [place] Capsule 00 (Do Not Crush) Enoxaparin 2017-03 No Notes: Memor ia 2-14 (Same as: l 15:00: Lovenox) [place] 00 Docusate 2017-03 No Notes: Memoria Sodium 100 2-14 (Same as: l MG Oral 15:00: Colace) [place] Capsule 00 (Do Not Crush) Enoxaparin 2017-03 No Notes: Memor ia 2-14 (Same as: l 15:00: Lovenox) [place] 00 Docusate 2017-03 No Notes: Memoria Sodium 100 2-14 (Same as: l MG Oral 15:00: Colace) [place] Capsule 00 (Do Not Crush) Enoxaparin 2017-03 No Notes: Memor ia 2-14 (Same as: l 15:00: Lovenox) [place] 00 Docusate 2017-03 No Notes: Memoria Sodium 100 2-14 (Same as: l MG Oral 15:00: Colace) [place] Capsule 00 (Do Not Crush) Enoxaparin 2017-03 No Notes: Memor ia 2-14 (Same as: l 15:00: Lovenox) [place] morphine 2017-03 No Notes: Memoria 0.5 mg/mL 2-14 (Same l preservativ 13:38: as:MORPhin [place] e-free 00 e Sulfate) injectable solution morphine 2017-03 No Notes: Memoria 0.5 mg/mL 2-14 (Same l preservativ 13:38: as:MORPhin [place] e-free 00 e Sulfate) injectable solution morphine 2017-03 No Notes: Memoria 0.5 mg/mL 2-14 (Same l preservativ 13:38: as:MORPhin [place] e-free 00 e Sulfate) injectable solution morphine 2017-03 No Notes: Memoria 0.5 mg/mL 2-14 (Same l preservativ 13:38: as:MORPhin [place] e-free 00 e Sulfate) injectable solution Mirtazapine 2017-03 No Notes: Kuledep teto 2-14 (Same l 03:00: as:Remeron [place] 00 ) Mirtazapine 2017-03 No Notes: Kuldeep teto 2-14 (Same l 03:00: as:Remeron [place] ) Mirtazapine 2017-03 No Notes: Kuldeep teto 2-14 (Same l 03:00: as:Remeron [place] 00 ) Mirtazapine 2017-03 No Notes: Kuldeep teto 2-14 (Same l 03:00: as:Remeron [place] 00 ) Saline 2017-03 No Notes: Memoria Flush 0.9% 2-13 (Same as: l 23:46: BD [place] Posiflush) Sodium 2017-03 No 1,000 mL, Memori a Chloride 2-13 Rate: 100 l 0.45% IV 23:46: ml/hr, [place] 1,000 mL 00 Infuse over: 10 hr, Route: IV, Dosing Weight 85 kg, Total Volume: 1,000, Start date: 02/14/18 17:46:00 HOUSE MANAGER, Duration: 30 day, Stop date: 03/16/18 17:45:00 HOUSE MANAGER, 2.1, m2 Dulcolax 2017-03 No Notes: Memoria Laxative 2-13 (Same As: l 23:46: Dulcolax, [place] 00 Correctol) (Do Not Crush) "Do Not Crush" Ondansetron 2017-03 No Notes: Kuldepe teto 2-13 (Same as: l 23:46: Zofran [place] 00 ODT) Diphenhydra 2017-03 No Notes: Kuldeep teto mine 2-13 (Same as: l 23:46: Benadryl) [place] 00 Acetaminoph 2017-03 No Notes: Max Memoria en 2-13 acetaminop l 23:46: hen = 4000 [place] 00 mg/day (4 gm/day). (Same as: Tylenol) Acetaminoph 2017-03 No Notes: Kuldeep teto en 325 MG / 2-13 (Same as: l Hydrocodone 23:46: [place] Marcia nn Bitartrate 00 325/5) Do 5 MG Oral not exceed Tablet 4gm/day of acetaminop hen. Saline 2017-03 No Notes: Memoria Flush 0.9% 2-13 (Same as: l 23:46: BD [place] 00 Posiflush) Sodium 2017-03 No 1,000 mL, Memori a Chloride 2-13 Rate: 100 l 0.45% IV 23:46: ml/hr, [place] 1,000 mL 00 Infuse over: 10 hr, Route: IV, Dosing Weight 85 kg, Total Volume: 1,000, Start date: 02/14/18 17:46:00 HOUSE MANAGER, Duration: 30 day, Stop date: 03/16/18 17:45:00 HOUSE MANAGER, 2.1, m2 Dulcolax 2017-03 No Notes: Mem[facility] Laxative 2-13 (Same As: l 23:46: Dulcolax, [place] 00 Correctol) (Do Not Crush) "Do Not Crush" Ondansetron 2017-03 No Notes: Kuldeep teto 2-13 (Same as: l 23:46: Zofran [place] 00 ODT) Diphenhydra 2017-03 No Notes: Kuldeep teto mine 2-13 (Same as: l 23:46: Benadryl) [place] 00 Acetaminoph 2017-03 No Notes: Max Memoria en 2-13 acetaminop l 23:46: hen = 4000 [place] 00 mg/day (4 gm/day). (Same as: Tylenol) Acetaminoph 2017-03 No Notes: Kuldeep teto en 325 MG / 2-13 (Same as: l Hydrocodone 23:46: [place] Marcia nn Bitartrate 00 325/5) Do 5 MG Oral not exceed Tablet 4gm/day of acetaminop hen. Saline 2017-03 No Notes: Memoria Flush 0.9% 2-13 (Same as: l 23:46: BD [place] 00 Posiflush) Sodium 2017-03 No 1,000 mL, Memori a Chloride 2-13 Rate: 100 l 0.45% IV 23:46: ml/hr, [place] 1,000 mL 00 Infuse over: 10 hr, Route: IV, Dosing Weight 85 kg, Total Volume: 1,000, Start date: 02/14/18 17:46:00 HOUSE MANAGER, Duration: 30 day, Stop date: 03/16/18 17:45:00 HOUSE MANAGER, 2.1, m2 Dulcolax 2017-03 No Notes: [facility]oria Laxative 2-13 (Same As: l 23:46: Dulcolax, [place] 00 Correctol) (Do Not Crush) "Do Not Crush" Ondansetron 2017-03 No Notes: Kuldeep teto 2-13 (Same as: l 23:46: Zofran [place] 00 ODT) Diphenhydra 2017-03 No Notes: Kuldeep teto mine 2-13 (Same as: l 23:46: Benadryl) [place] 00 Acetaminoph 2017-03 No Notes: Max Memoria en 2-13 acetaminop l 23:46: hen = 4000 [place] 00 mg/day (4 gm/day). (Same as: Tylenol) Acetaminoph 2017-03 No Notes: Kuldeep teto en 325 MG / 2-13 (Same as: l Hydrocodone 23:46: [place] Marcia nn Bitartrate 00 325/5) Do 5 MG Oral not exceed Tablet 4gm/day of acetaminop hen. Saline 2017-03 No Notes: Memoria Flush 0.9% 2-13 (Same as: l 23:46: BD [place] 00 Posiflush) Sodium 2017-03 No 1,000 mL, Memori a Chloride 2-13 Rate: 100 l 0.45% IV 23:46: ml/hr, [place] 1,000 mL 00 Infuse over: 10 hr, Route: IV, Dosing Weight 85 kg, Total Volume: 1,000, Start date: 02/14/18 17:46:00 HOUSE MANAGER, Duration: 30 day, Stop date: 03/16/18 17:45:00 HOUSE MANAGER, 2.1, m2 Dulcolax 2017-03 No Notes: Memoria Laxative 2-13 (Same As: l 23:46: Dulcolax, [place] 00 Correctol) (Do Not Crush) "Do Not Crush" Ondansetron 2017-03 No Notes: Kuldeep teto 2-13 (Same as: l 23:46: Zofran [place] 00 ODT) Diphenhydra 2017-03 No Notes: Kuldeep teto mine 2-13 (Same as: l 23:46: Benadryl) [place] 00 Acetaminoph 2017-03 No Notes: Max Memoria en 2-13 acetaminop l 23:46: hen = 4000 [place] 00 mg/day (4 gm/day). (Same as: Tylenol) Acetaminoph 2017-03 No Notes: Kuldeep teto en 325 MG / 2-13 (Same as: l Hydrocodone 23:46: [place] Marcia nn Bitartrate 00 325/5) Do 5 MG Oral not exceed Tablet 4gm/day of acetaminop hen. sugammadex 2017-03 No Route: IV, M emoria (ANES) 2-13 Drug form: l 22:11: SOLN, [place] 00 ONCE, 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/14/18 16:11:00 HOUSE MANAGER sugammadex 2017-03 No Route: IV, M emoria (ANES) 2-13 Drug form: l 22:11: SOLN, [place] 00 ONCE, 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/14/18 16:11:00 HOUSE MANAGER sugammadex 2017- No Route: IV, M emoria (ANES) 2-13 Drug form: l 22:11: SOLN, [place] 00 ONCE, 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/14/18 16:11:00 HOUSE MANAGER sugammadex 2017-03 No Route: IV, M emoria (ANES) 2-13 Drug form: l 22:11: SOLN, [place] ONCE, 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/14/18 16:11:00 HOUSE MANAGER ePHEDrine 2017-03 No Route: IV, Me moria (ANES) 2-13 Drug form: l 22:07: INJ, ONCE, 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/14/18 16:07:00 HOUSE MANAGER ePHEDrine 2017-03 No Route: IV, Me moria (ANES) 2-13 Drug form: l 22:07: INJ, ONCE, 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/14/18 16:07:00 HOUSE MANAGER ePHEDrine 2017-03 No Route: IV, Me moria (ANES) 2-13 Drug form: l 22:07: INJ, ONCE, 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/14/18 16:07:00 HOUSE MANAGER ePHEDrine 2017-03 No Route: IV, Me moria (ANES) 2-13 Drug form: l 22:07: INJ, ONCE, 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/14/18 16:07:00 HOUSE MANAGER succinylcho 2017-03 No Route: IV, Memoria line (ANES) 2-13 Drug form: l 22:02: INJ, ONCE, 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/14/18 16:02:00 HOUSE MANAGER phenylephri 2017-03 No Route: IV, Memoria ne (ANES) 2-13 Drug form: l 22:02: INJ, ONCE, 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/14/18 16:02:00 HOUSE MANAGER dexamethaso 2017-03 No Route: IV, Memoria ne (ANES) 2-13 Drug form: l 22:02: INJ, ONCE, 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/14/18 16:02:00 HOUSE MANAGER ondansetron 2017-03 No Route: IV, Memoria (ANES) 2-13 Drug form: l 22:02: INJ, ONCE, 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/14/18 16:02:00 HOUSE MANAGER succinylcho 2018- No Route: IV, Memoria line (ANES) 2-13 Drug form: l 22:02: INJ, ONCE, 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/14/18 16:02:00 HOUSE MANAGER phenylephri 2018- No Route: IV, Memoria ne (ANES) 2-13 Drug form: l 22:02: INJ, ONCE, 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/14/18 16:02:00 HOUSE MANAGER dexamethaso 2018- No Route: IV, Memoria ne (ANES) 2-13 Drug form: l 22:02: INJ, ONCE, 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/14/18 16:02:00 HOUSE MANAGER ondansetron 2018- No Route: IV, Memoria (ANES) 2-13 Drug form: l 22:02: INJ, ONCE, 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/14/18 16:02:00 HOUSE MANAGER succinylcho 2018 No Route: IV, Memoria line (ANES) 2-13 Drug form: l 22:02: INJ, ONCE, 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/14/18 16:02:00 HOUSE MANAGER phenylephri 2018- No Route: IV, Memoria ne (ANES) 2-13 Drug form: l 22:02: INJ, ONCE, 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/14/18 16:02:00 HOUSE MANAGER dexamethaso 2018- No Route: IV, Memoria ne (ANES) 2-13 Drug form: l 22:02: INJ, ONCE, 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/14/18 16:02:00 HOUSE MANAGER ondansetron 2018 No Route: IV, Memoria (ANES) 2-13 Drug form: l 22:02: INJ, ONCE, 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/14/18 16:02:00 HOUSE MANAGER succinylcho 2018- No Route: IV, Memoria line (ANES) 2-13 Drug form: l 22:02: INJ, ONCE, 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/14/18 16:02:00 HOUSE MANAGER phenylephri 2018- No Route: IV, Memoria ne (ANES) 2-13 Drug form: l 22:02: INJ, ONCE, 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/14/18 16:02:00 HOUSE MANAGER dexamethaso 2017-03 No Route: IV, Memoria ne (ANES) 2-13 Drug form: l 22:02: INJ, ONCE, 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/14/18 16:02:00 HOUSE MANAGER ondansetron 2017-03 No Route: IV, Memoria (ANES) 2-13 Drug form: l 22:02: INJ, ONCE, 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/14/18 16:02:00 HOUSE MANAGER fentaNYL 2017-03 No Route: IV, Mem oria (ANES) 2-13 Drug form: l 21:57: INJ, ONCE, 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/14/18 15:57:00 HOUSE MANAGER lidocaine 2017-03 No Route: IV, Me moria (ANES) 2-13 Drug form: l 21:57: INJ, ONCE, 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/14/18 15:57:00 HOUSE MANAGER propofol 2017-03 No Route: IV, Mem oria (ANES) 2-13 Drug form: l 21:57: INJ, ONCE, 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/14/18 15:57:00 HOUSE MANAGER rocuronium 2017-03 No Route: IV, M emoria (ANES) 2-13 Drug form: l 21:57: INJ, ONCE, 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/14/18 15:57:00 HOUSE MANAGER midazolam 2017-03 No Route: IV, Me moria (ANES) 2-13 Drug form: l 21:57: SOLN, 00 ONCE, 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/14/18 15:57:00 HOUSE MANAGER fentaNYL 2017-03 No Route: IV, Mem oria (ANES) 2-13 Drug form: l 21:57: INJ, ONCE, 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/14/18 15:57:00 HOUSE MANAGER lidocaine 2017-03 No Route: IV, Me moria (ANES) 2-13 Drug form: l 21:57: INJ, ONCE, 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/14/18 15:57:00 HOUSE MANAGER propofol 2017-03 No Route: IV, Mem oria (ANES) 2-13 Drug form: l 21:57: INJ, ONCE, 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/14/18 15:57:00 HOUSE MANAGER rocuronium 2018 No Route: IV, M emoria (ANES) 2-13 Drug form: l 21:57: INJ, ONCE, [place] 00 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/14/18 15:57:00 HOUSE MANAGER midazolam 2017-03 No Route: IV, Me moria (ANES) 2-13 Drug form: l 21:57: SOLN, [place] ONCE, 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/14/18 15:57:00 HOUSE MANAGER fentaNYL 2017-03 No Route: IV, Mem oria (ANES) 2-13 Drug form: l 21:57: INJ, ONCE, 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/14/18 15:57:00 HOUSE MANAGER lidocaine 2017-03 No Route: IV, Me moria (ANES) 2-13 Drug form: l 21:57: INJ, ONCE, 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/14/18 15:57:00 HOUSE MANAGER propofol 2017-03 No Route: IV, Mem oria (ANES) 2-13 Drug form: l 21:57: INJ, ONCE, 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/14/18 15:57:00 HOUSE MANAGER rocuronium 2017-03 No Route: IV, M emoria (ANES) 2-13 Drug form: l 21:57: INJ, ONCE, 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/14/18 15:57:00 HOUSE MANAGER midazolam 2017-03 No Route: IV, Me moria (ANES) 2-13 Drug form: l 21:57: SOLN, [place] 00 ONCE, 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/14/18 15:57:00 HOUSE MANAGER fentaNYL 2017-03 No Route: IV, Mem oria (ANES) 2-13 Drug form: l 21:57: INJ, ONCE, 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/14/18 15:57:00 HOUSE MANAGER lidocaine 2017-03 No Route: IV, Me moria (ANES) 2-13 Drug form: l 21:57: INJ, ONCE, [place] 00 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/14/18 15:57:00 HOUSE MANAGER propofol 2017-03 No Route: IV, Mem oria (ANES) 2-13 Drug form: l 21:57: INJ, ONCE, [place] 00 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/14/18 15:57:00 HOUSE MANAGER rocuronium 2017-03 No Route: IV, M emoria (ANES) 2-13 Drug form: l 21:57: INJ, ONCE, [place] 00 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/14/18 15:57:00 HOUSE MANAGER midazolam 2017-03 No Route: IV, Me moria (ANES) 2-13 Drug form: l 21:57: SOLN, [place] 00 ONCE, 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/14/18 15:57:00 HOUSE MANAGER Promethazin 2017-03 No Notes: Do M emoria e 2-13 not give l 21:47: IV push. [place] 00 (Same as: Phenergan) Ondansetron 2017-03 No Notes: Kuldeep teto 2-13 (Same as: l 21:47: Zofran) [place] 00 MEDICATION WASTE Product Size: 4 mg Product Wasted: ___ mg Metoprolol 2017-03 No Notes: Memor ia 2-13 (Same as: l 21:47: Lopressor) Push over 2 minutes Ketorolac 2017-03 No 4 days Memor ia 2-13 l 21:47: MEDICATION [place] 00 WASTE Product Size: 30 mg Product [...] Weight 85 kg, Start date: 02/14/18 15:47:00 HOUSE MANAGER, 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/14/18 15:47:00 HOUSE MANAGER Naloxone 2017-03 No Notes: Memoria 2-13 Same as l 21:47: Narcan [place] 00 Flumazenil 2017-03 No Notes: Memor ia 2-13 (Same as: l 21:47: Romazicon) [place] 00 Morphine 2017-03 No Notes: Memoria 2-13 (Same l 21:47: as:MORPhin [place] 00 e Sulfate) Hydromorpho 2017-03 No Notes: Kuldeep teto ne 2-13 Same as l 21:47: Dilaudid [place] Promethazin 2017-03 No Notes: Do M emoria e 2-13 not give l 21:47: IV push. [place] 00 (Same as: Phenergan) Ondansetron 2017-03 No Notes: Kuldeep teto 2-13 (Same as: l 21:47: Zofran) [place] 00 MEDICATION WASTE Product Size: 4 mg Product Wasted: ___ mg Metoprolol 2017-03 No Notes: Memor ia 2-13 (Same as: l 21:47: Lopressor) [place] 00 Push over 2 minutes Ketorolac 2017-03 No 4 days Memor ia 2-13 l 21:47: MEDICATION [place] 00 WASTE Product Size: 30 mg Product Wasted: ___ mg Labetalol 2017-03 No Notes: Memori a 2-13 (Same as: l 21:47: Normodyne, [place] 00 Trandate) Push over 2 minutes Give bolus over 2-3 minutes. Sodium 2017-03 No 500 mL, Memoria Chloride 2-13 1500 l 0.9% 21:47: ml/hr, [place] (Bolus) IV 00 Infuse Over: 20 minutes, Route: IV, 500, Drug form: INJ, ONCE, Dosing Weight 85 kg, Start date: 02/14/18 15:47:00 HOUSE MANAGER, 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/14/18 15:47:00 HOUSE MANAGER Naloxone 2017-03 No Notes: Memoria 2-13 Same as l 21:47: Narcan [place] 00 Flumazenil 2017-03 No Notes: Memor ia 2-13 (Same as: l 21:47: Romazicon) [place] 00 Morphine 2017-03 No Notes: Memoria 2-13 (Same l 21:47: as:MORPhin [place] 00 e Sulfate) Hydromorpho 2017-03 No Notes: [...] days Memor ia 2-13 l 21:47: MEDICATION [place] 00 WASTE Product Size: 30 mg Product Wasted: ___ mg Labetalol 2017-03 No Notes: Memori a 2-13 (Same as: l 21:47: Normodyne, [place] 00 Trandate) Push over 2 minutes Give bolus over 2-3 minutes. Sodium 2017-03 No 500 mL, Memoria Chloride 2-13 1500 l 0.9% 21:47: ml/hr, [place] (Bolus) IV 00 Infuse Over: 20 minutes, Route: IV, 500, Drug form: INJ, ONCE, Dosing Weight 85 kg, Start date: 02/14/18 15:47:00 HOUSE MANAGER, 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/14/18 15:47:00 HOUSE MANAGER Naloxone 2017-03 No Notes: Memoria 2-13 Same as l 21:47: Narcan [place] 00 Flumazenil 2017-03 No Notes: Memor ia 2-13 (Same as: l 21:47: Romazicon) [place] Morphine 2017-03 No Notes: Memoria 2-13 (Same l 21:47: as:MORPhin [place] 00 e Sulfate) Hydromorpho 2017-03 No Notes: Kuldeep teto ne 2-13 Same as l 21:47: Dilaudid [place] Promethazin 2017-03 No Notes: Do M emoria [...] days Memor ia 2-13 l 21:47: MEDICATION [place] 00 WASTE Product Size: 30 mg Product Wasted: ___ mg Labetalol 2017-03 No Notes: Memori a 2-13 (Same as: l 21:47: Normodyne, [place] 00 Trandate) Push over 2 minutes Give bolus over 2-3 minutes. Sodium 2017-03 No 500 mL, Memoria Chloride 2-13 1500 l 0.9% 21:47: ml/hr, [place] (Bolus) IV 00 Infuse Over: 20 minutes, Route: IV, 500, Drug form: INJ, ONCE, Dosing Weight 85 kg, Start date: 02/14/18 15:47:00 HOUSE MANAGER, 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/14/18 15:47:00 HOUSE MANAGER Naloxone 2017-03 No Notes: Memoria 2-13 Same as l 21:47: Narcan Flumazenil 2017-03 No Notes: Memor ia 2-13 (Same as: l 21:47: Romazicon) [place] 00 Morphine 2017-03 No Notes: Memoria 2-13 (Same l 21:47: as:MORPhin [place] e Sulfate) Hydromorpho 2017-03 No Notes: Kuldeep teto ne 2-13 Same as l 21:47: Dilaudid vancomycin 2017-03 No Route: IV, M emoria (ANES) 1000 2-13 Drug form: l mg 21:45: INJ, Start date: 02/14/18 15:45:00 HOUSE MANAGER, 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/14/18 16:45:00 HOUSE MANAGER vancomycin 2017-03 No Route: IV, M emoria (ANES) 1000 2-13 Drug form: l mg 21:45: INJ, Start date: 02/14/18 15:45:00 HOUSE MANAGER, 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/14/18 16:45:00 HOUSE MANAGER vancomycin 2017-03 No Route: IV, M emoria (ANES) 1000 2-13 Drug form: l mg 21:45: INJ, Start date: 02/14/18 15:45:00 HOUSE MANAGER, 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/14/18 16:45:00 HOUSE MANAGER vancomycin 2017-03 No Route: IV, M emoria (ANES) 1000 2-13 Drug form: l mg 21:45: INJ, Start 00 date: 02/14/18 15:45:00 HOUSE MANAGER, 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/14/18 16:45:00 HOUSE MANAGER Sodium 2017-03 No Route: IV, Memor ia Chloride 2-13 Total l 0.9% IV 21:08: Volume: [place] (ANES) 1000 00 1,000, mL Start date: 02/14/18 15:08:00 HOUSE MANAGER, 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/14/18 16:08:00 HOUSE MANAGER Sodium 2017-03 No Route: IV, Memor ia Chloride 2-13 Total l 0.9% IV 21:08: Volume: [place] (ANES) 1000 00 1,000, mL Start date: 02/14/18 15:08:00 HOUSE MANAGER, 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/14/18 16:08:00 HOUSE MANAGER Sodium 2017-03 No Route: IV, [facility] Chloride 2-13 Total l 0.9% IV 21:08: Volume: [place] (ANES) 1000 00 1,000, mL Start date: 02/14/18 15:08:00 HOUSE MANAGER, 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/14/18 16:08:00 HOUSE MANAGER Sodium 2017-03 No Route: IV, [facility] Chloride 2-13 Total l 0.9% IV 21:08: Volume: [place] (ANES) 1000 00 1,000, mL Start date: 02/14/18 15:08:00 HOUSE MANAGER, 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/14/18 16:08:00 HOUSE MANAGER Ativan 2017-03 No Notes: [facility] 2-13 (Same as: l 18:24: Ativan) [place] Ativan 2017-03 No Notes: [facility] 2-13 (Same as: l 18:24: Ativan) [place] Ativan 2017-03 No Notes: [facility] 2-13 (Same as: l 18:24: Ativan) [place] Ativan 2017-03 No Notes: [facility] 2-13 (Same as: l 18:24: Ativan) [place] 00 Thiamine 2017-03 No Notes: [facility] 2-13 (Same As: l 16:00: Vitamin [place] 00 B1) multivitami 2017-03 No Notes: Kuldeep teto n with 2-13 (Same l minerals 16:00: as:Thera-M Her fernandes 00 , Theragran- M) WASTE: F/P - Black; E - Municipal Trash Bin Give with food. Thiamine 2017-03 No Notes: [facility] 2-13 (Same As: l 16:00: Vitamin [place] 00 B1) multivitami 2017-03 No Notes: Kuldeep teto n with 2-13 (Same l minerals 16:00: as:Thera-Bradley Dale fernandes 00 , Theragran- M) WASTE: F/P - Black; E - Municipal Trash Bin Give with food. Thiamine 2017-03 No Notes: [facility] 2-13 (Same As: l 16:00: Vitamin [place] 00 B1) multivitami 2017-03 No Notes: Kuldeep teto n with 2-13 (Same l minerals 16:00: as:Thera-Bradley Dale fernandes 00 , Theragran- M) WASTE: F/P - Black; E - Municipal Trash Bin Give with food. Thiamine 2017-03 No Notes: [facility] 2-13 (Same As: l 16:00: Vitamin [place] 00 B1) multivitami 2017-03 No Notes: Kuldeep teto n with 2-13 (Same l minerals 16:00: as:Thera-Bradley Her fernandes 00 , Theragran- M) WASTE: F/P - Black; E - Municipal Trash Bin Give with food. 24 HR 2017-03 No Notes: [facility] Metoprolol 2-13 (Same as: l Tartrate 25 15:00: Toprol XL) [place] MG Extended 00 Do Not Release Crush Tablet [Toprol] duloxetine 2017-03 No Notes: [facility] 2-13 (Same as: l 15:00: Cymbalta) [place] 00 (Do Not Crush) Plavix 2017-03 No Notes: [facility] 2-13 (Same As: l 15:00: Plavix) [place] 00 24 HR 2017-03 No Notes: [facility] [...] as: l Tartrate 25 15:00: Toprol XL) [place] MG Extended 00 Do Not Release Crush Tablet [Toprol] duloxetine 2017-03 No Notes: [facility] 2-13 (Same as: l 15:00: Cymbalta) [place] 00 (Do Not Crush) Plavix 2017-03 No Notes: [facility] 2-13 (Same As: l 15:00: Plavix) [place] 00 24 HR 2017-03 No Notes: [facility] Metoprolol 2-13 (Same as: l Tartrate 25 15:00: Toprol XL) [place] MG Extended 00 Do Not Release Crush Tablet [Toprol] duloxetine 2017-03 No Notes: [facility] 2-13 (Same as: l 15:00: Cymbalta) [place] 00 (Do Not Crush) Plavix 2017-03 No Notes: [facility] 2-13 (Same As: l 15:00: Plavix) [place] 00 atorvastati 2017-03 No Notes: Kuldeep teto n 2-13 (Same as: l 03:00: Lipitor) [place] 00 Trazodone 2017-03 No Notes: [facility]ori a Hydrochlori 2-13 (Same As: l de 50 MG 03:00: Desyrel) Marcia nn Oral Tablet 00 atorvastati 2017-03 No Notes: Kuldeep teto n 2-13 (Same as: l 03:00: Lipitor) [place] 00 Trazodone 2017-03 No Notes: [facility] a Hydrochlori 2-13 (Same As: l de 50 MG 03:00: Desyrel) Marcia nn Oral Tablet 00 atorvastati 2017-03 No Notes: Kuldeep teto n 2-13 (Same as: l 03:00: Lipitor) [place] 00 Trazodone 2017-03 No Notes: Memori a Hydrochlori 2-13 (Same As: l de 50 MG 03:00: Desyrel) Marcia nn Oral Tablet 00 atorvastati 2017-03 No Notes: Kuldeep teto n 2-13 (Same as: l 03:00: Lipitor) [place] 00 Trazodone 2017-03 No Notes: Memori a Hydrochlori 2-13 (Same As: l de 50 MG 03:00: Desyrel) [place]cia nn Oral Tablet 00 Sodium 2017-03 No 250 mL, Memoria Chloride 2-13 Rate: To l 0.9% 01:24: prime line [place] (titrate) 00 and flush 250 mL remaining blood products., Dosing Weight 85, kg, Route: IV, Total Volume: 250, Priority: Routine, Start Date: 02/13/18 19:24:00 HOUSE MANAGER, Duration: 30 day, Stop date: 03/15/18 19:23:00 HOUSE MANAGER, Replace Every: 24 hr Sodium 2017-03 No 250 mL, [facility] Chloride 2-13 Rate: To l 0.9% 01:24: prime line [place] (titrate) 00 and flush 250 mL remaining blood products., Dosing Weight 85, kg, Route: IV, Total Volume: 250, Priority: Routine, Start Date: 02/13/18 19:24:00 HOUSE MANAGER, Duration: 30 day, Stop date: 03/15/18 19:23:00 HOUSE MANAGER, Replace Every: 24 hr Sodium 2017-03 No 250 mL, [facility] Chloride 2-13 Rate: To l 0.9% 01:24: prime line [place] (titrate) 00 and flush 250 mL remaining blood products., Dosing Weight 85, kg, Route: IV, Total Volume: 250, Priority: Routine, Start Date: 02/13/18 19:24:00 HOUSE MANAGER, Duration: 30 day, Stop date: 03/15/18 19:23:00 HOUSE MANAGER, Replace Every: 24 hr Sodium 2017-03 No 250 mL, [facility] Chloride 2-13 Rate: To l 0.9% 01:24: prime line [place] (titrate) 00 and flush 250 mL remaining blood products., Dosing Weight 85, kg, Route: IV, Total Volume: 250, Priority: Routine, Start Date: 02/13/18 19:24:00 HOUSE MANAGER, Duration: 30 day, Stop date: 03/15/18 19:23:00 HOUSE MANAGER, Replace Every: 24 hr Vancomycin 2017-03 No 2001 mg: Me moria 2-13 infuse l 00:00: over 2.5 [place] 00 hours For adult patients only: Round to nearest 250 mg per Medical Staff approval MEDICATION WASTE Product Size: 1000 mg Product Wasted: ___ mg Vancomycin 2017- No 2001 mg: moria 2-13 infuse l 00:00: over 2.5 [place] 00 hours For adult patients only: Round to nearest 250 mg per Medical Staff approval MEDICATION WASTE Product Size: 1000 mg Product Wasted: ___ mg Vancomycin 2017- No 2001 mg: moria 2-13 infuse l 00:00: over 2.5 [place] 00 hours For adult patients only: Round to nearest 250 mg per Medical Staff approval MEDICATION WASTE Product Size: 1000 mg Product Wasted: ___ mg Vancomycin 2018- No 2001 mg: moria 2-13 infuse l 00:00: over 2.5 [...] s with feeding tube less than 14 [place] (Dobhoff, J-tube etc) and pediatric and patients. [...] s with feeding tube less than 14 [place] (Dobhoff, J-tube etc) and pediatric and patients. [...] s with feeding tube less than 14 [place] (Dobhoff, J-tube etc) and pediatric and patients. [...] s with feeding tube less than 14 [place] (Dobhoff, J-tube etc) and pediatric and patients. Buspirone 2017-03 No Notes: Memori a 2-12 (Same As: l 23:00: BuSpar) Buspirone 2017-03 No Notes: Memori a 2-12 (Same As: l 23:00: BuSpar) Buspirone 2017-03 No Notes: Memori a 2-12 (Same As: l 23:00: BuSpar) [place] 00 Buspirone 2017-03 No Notes: Memori a 2-12 (Same As: l 23:00: BuSpar) [place] 00 NS 1,000 mL 2017-03 No 1,000 mL, M emoria 212 Rate: 75 l 22:01: ml/hr, [place] 00 Infuse over: 13.3 hr, Route: IV, Dosing Weight 85 kg, Total Volume: 1,000, Start date: 02/13/18 16:01:00 HOUSE MANAGER, Duration: 30 day, Stop date: 03/15/18 16:00:00 HOUSE MANAGER, 2.1, m2 NS 1,000 mL 2017-03 No 1,000 mL, M emoria 212 Rate: 75 l 22:01: ml/hr, [place] 00 Infuse over: 13.3 hr, Route: IV, Dosing Weight 85 kg, Total Volume: 1,000, Start date: 02/13/18 16:01:00 HOUSE MANAGER, Duration: 30 day, Stop date: 03/15/18 16:00:00 HOUSE MANAGER, 2.1, m2 NS 1,000 mL 2018-1 No 1,000 mL, M emoria 2-12 Rate: 75 l 22:01: ml/hr, [place] Infuse over: 13.3 hr, Route: IV, Dosing Weight 85 kg, Total Volume: 1,000, Start date: 02/13/18 16:01:00 HOUSE MANAGER, Duration: 30 day, Stop date: 03/15/18 16:00:00 HOUSE MANAGER, 2.1, m2 NS 1,000 mL 2017-03 No 1,000 mL, Bradley freitasria 2-12 Rate: 75 l 22:01: ml/hr, [place] Infuse over: 13.3 hr, Route: IV, Dosing Weight 85 kg, Total Volume: 1,000, Start date: 02/13/18 16:01:00 HOUSE MANAGER, Duration: 30 day, Stop date: 03/15/18 16:00:00 HOUSE MANAGER, 2.1, m2 Rocephin + 2017-03 No Notes: [...] emoria 2-12 Daily, 0 l 21:11: Refill(s) [place] 00 metoprolol 2017-03 No 25 mg = [...] tab, PO, l tablet 21:11: BID, 0 [place] 00 Refill(s) Sulfamethox 2017-03 No 1 tab, PO, Memoria azole 800 2-12 BID, # 14 l MG / 21:11: tab, 0 [place] Trimethopri 00 Refill(s) m 160 MG Oral Tablet Tramadol 2017-03 No 50 mg, PO, Mem oria 2-12 Q4-6H, PRN l 21:11: Pain, # 20 [place] 00 tab, 0 Refill(s) midodrine 2017-03 No 2.5 mg = 1 Me moria 2.5 mg oral 2-12 tab, PO, l tablet 21:11: BID, 0 [place] 00 Refill(s) clopidogrel 2017-03 No 75 mg [...] PO, l oral tablet 21:11: Bedtime, # [place] 00 30 tab, 0 Refill(s) busPIRone 2017-03 [...] tab, PO, l tablet 21:11: BID, 0 [place] 00 Refill(s) clopidogrel 2017-03 No 75 mg = 1 M emoria 75 MG Oral 2-12 tab, PO, l Tablet 21:11: Daily, # [place] [Plavix] 00 90 tab, 1 Refill(s) duloxetine 2017-03 No 30 mg, PO, M emoria 2-12 Daily, 0 l 21:11: Refill(s) [place] 00 metoprolol 2017-03 No 25 mg = [...] tab, PO, l tablet 21:11: BID, 0 [place] 00 Refill(s) Sulfamethox 2017-03 No 1 tab, PO, Memoria azole 800 2-12 BID, # 14 l MG / 21:11: tab, 0 [place] Trimethopri 00 Refill(s) m 160 MG Oral Tablet Tramadol 2017-03 No 50 mg, PO, Mem oria 2-12 Q4-6H, PRN l 21:11: Pain, # 20 [place] 00 tab, 0 Refill(s) midodrine 2017-03 No 2.5 mg = 1 Me moria 2.5 mg oral 2-12 tab, PO, l tablet 21:11: BID, 0 [place] 00 Refill(s) clopidogrel 2017-03 No 75 mg [...] 14 l MG / 21:11: tab, 0 [place] Trimethopri 00 Refill(s) m 160 MG Oral Tablet Tramadol 2017-03 No 50 mg, PO, Mem oria 2-12 Q4-6H, PRN l 21:11: Pain, # 20 [place] 00 tab, 0 Refill(s) midodrine 2017-03 No 2.5 mg = 1 Me moria 2.5 mg oral 2-12 tab, PO, l tablet 21:11: BID, 0 [place] 00 Refill(s) Acetaminoph 2017-03 No Notes: Do M emoria en 2-12 not exceed l 20:53: 4 gm/day. [place] 00 (Same as: Tylenol) Ondansetron 2017-03 No Notes: Kuldeep teto 2-12 (Same as: l 20:53: Zofran) [place] 00 MEDICATION WASTE Product Size: 4 mg Product Wasted: ___ mg Glucagon 2017-03 No 1 mg, Memoria 12 Route: IM, l 20:53: Drug form: [place] 00 PDR/INJ, PRN, kg, PRN Blood Glucose Results, Start date: 02/13/18 14:53:00 HOUSE MANAGER, Duration: 30 day, Stop date: 03/15/18 14:52:00 HOUSE MANAGER Dextrose 2017-03 No 25 gm, 50 Kuldeep teto 50% Syringe 2-12 mL, Route: l 20:53: IVP, Drug Form: INJ, kg, PRN, PRN Blood Glucose Results, Start date: 02/13/18 14:53:00 HOUSE MANAGER, Duration: 30 day, Stop date: 03/15/18 14:52:00 HOUSE MANAGER Acetaminoph 2017-03 No Notes: Do M emoria en 12 not exceed l 20:53: 4 gm/day. [place] 00 (Same as: Tylenol) Ondansetron 2017-03 No Notes: Kuldeep teto 2-12 (Same as: l 20:53: Zofran) MEDICATION WASTE Product Size: 4 mg Product Wasted: ___ mg Glucagon 2017-03 No 1 mg, Memoria 212 Route: IM, l 20:53: Drug form: [place] 00 PDR/INJ, PRN, kg, PRN Blood Glucose Results, Start date: 02/13/18 14:53:00 HOUSE MANAGER, Duration: 30 day, Stop date: 03/15/18 14:52:00 HOUSE MANAGER Dextrose 2017-03 No 25 gm, 50 Kuldeep teto 50% Syringe 2-12 mL, Route: l 20:53: IVP, Drug Form: INJ, kg, PRN, PRN Blood Glucose Results, Start date: 02/13/18 14:53:00 HOUSE MANAGER, Duration: 30 day, Stop date: 03/15/18 14:52:00 HOUSE MANAGER Acetaminoph 2017-03 No Notes: Do M emoria en 212 not exceed l 20:53: 4 gm/day. [place] 00 (Same as: Tylenol) Ondansetron 2017-03 No Notes: Kuldeep teto 2-12 (Same as: l 20:53: Zofran) MEDICATION WASTE Product Size: 4 mg Product Wasted: ___ mg Glucagon 2017-03 No 1 mg, Memoria 212 Route: IM, l 20:53: Drug form: [place] 00 PDR/INJ, PRN, kg, PRN Blood Glucose Results, Start date: 02/13/18 14:53:00 HOUSE MANAGER, Duration: 30 day, Stop date: 03/15/18 14:52:00 HOUSE MANAGER Dextrose 2017-03 No 25 gm, 50 Kuldeep teto 50% Syringe 2-12 mL, Route: l 20:53: IVP, Drug Form: INJ, kg, PRN, PRN Blood Glucose Results, Start date: 02/13/18 14:53:00 HOUSE MANAGER, Duration: 30 day, Stop date: 03/15/18 14:52:00 HOUSE MANAGER Acetaminoph 2017-03 No Notes: Do M emoria en 12 not exceed l 20:53: 4 gm/day. [place] 00 (Same as: Tylenol) Ondansetron 2017-03 No Notes: Kuldeep teto 2-12 (Same as: l 20:53: Zofran) MEDICATION WASTE Product Size: 4 mg Product Wasted: ___ mg Glucagon 2017-03 No 1 mg, Memoria 2-12 Route: IM, l 20:53: Drug form: [place] 00 PDR/INJ, PRN, kg, PRN Blood Glucose Results, Start date: 02/13/18 14:53:00 HOUSE MANAGER, Duration: 30 day, Stop date: 03/15/18 14:52:00 HOUSE MANAGER Dextrose 2017-03 No 25 gm, 50 Kludeep teto 50% Syringe 2-12 mL, Route: l 20:53: IVP, Drug [place] 00 Form: INJ, kg, PRN, PRN Blood Glucose Results, Start date: 02/13/18 14:53:00 HOUSE MANAGER, Duration: 30 day, Stop date: 03/15/18 14:52:00 HOUSE MANAGER DULoxetine 2017-03 No 30 mg = 1 Me moria 30 mg oral 2-12 cap, PO, l delayed 18:48: Daily, # Arsenio n release 00 30 cap, 0 capsule Refill(s) tramadol 2017-03 No 50 mg = 1 Kuldeep etto hydrochlori 2-12 tab, PO, l de 50 [...] tab, PO, l tablet 18:48: Daily, 0 [place] 00 Refill(s) Aspirin 81 2017-03 No 162 [...] tab, PO, l tablet 18:48: Daily, # [place] 00 180 tab, 0 Refill(s) busPIRone 2017-03 Yes 10 mg = 1 Mem oria 10 mg oral 2-12 tab, PO, l tablet 18:48: BID, 0 [place] 00 Refill(s) Trazodone 2017-03 No 50 mg [...] tab, PO, l oral 18:48: Daily, # [place] enteric 00 30 tab, 0 coated Refill(s) [...] , 8.6 mg l 18:48: =, PO, [place] 00 Daily, Refill(s) 0 atorvastati 2017-03 Yes 80 mg = 1 M emoria n 80 mg 2-12 tab, PO, l oral tablet 18:48: Bedtime, 0 [place] 00 Refill(s) midodrine 2017-03 No 5 mg = 2 Kuldeep teto 2.5 mg oral 2-12 tab, PO, l tablet 18:48: Daily, # [place] 00 180 tab, 0 Refill(s) busPIRone 2017-03 [...] tab, PO, l oral 18:48: Daily, # [place] enteric 00 30 tab, 0 coated Refill(s) tablet clopidogrel 2017-03 Yes 75 mg = 1 M emoria 75 mg oral 2-12 tab, PO, l tablet 18:48: Daily, 0 [place] 00 Refill(s) Aspirin 81 2017-03 No 162 mg = 2 M emoria MG Enteric 2-12 tab, PO, l Coated 18:48: Daily, # [place] Tablet 00 90 tab, 3 Refill(s) metoprolol 2017-03 No 25 mg = 1 Me moria succinate 2-12 cap, PO, l 25 mg oral 18:48: Daily, 0 Her fernandes capsule, 00 Refill(s) extended release Sennosides 2017-03 No Sennosides M emoria 2-12 , 8.6 mg l 18:48: =, PO, [place] 00 Daily, Refill(s) 0 atorvastati 2017-03 Yes 80 mg = 1 M emoria n 80 mg 2-12 tab, PO, l oral tablet 18:48: Bedtime, 0 [place] 00 Refill(s) midodrine 2017-03 No 5 mg = 2 Kuldeep teto 2.5 mg oral 2-12 tab, PO, l tablet 18:48: Daily, # [place] 00 180 tab, 0 Refill(s) busPIRone 2017-03 Yes 10 mg = 1 Mem oria 10 mg oral 2-12 tab, PO, l tablet 18:48: BID, 0 [place] 00 Refill(s) Trazodone 2017-03 No 50 mg [...] tab, PO, l oral 18:48: Daily, # [place] enteric 00 30 tab, 0 coated Refill(s) tablet clopidogrel 2017-03 Yes 75 mg = 1 M emoria 75 mg oral 2-12 tab, PO, l tablet 18:48: Daily, 0 [place] 00 Refill(s) Aspirin 81 2017-03 No 162 [...] , 8.6 mg l 18:48: =, PO, [place] 00 Daily, Refill(s) 0 atorvastati 2017-03 Yes [...] tab, PO, l tablet 18:48: BID, 0 [place] 00 Refill(s) Trazodone 2017-03 No 50 mg = 1 Mem oria Hydrochlori 2-12 tab, PO, l de 50 MG 18:48: TID, # 90 Herm ladi Oral Tablet 00 tab, 0 Refill(s) clopidogrel 2017-03 Yes [id number] 75mg Take 1 [facility] 75 mg 1-14 07 tablet by ity of tablet 00:00: mouth [place] 00 daily. [facility] clopidogrel 2017-03 Yes [id number] 75mg Take 1 [facility] 75 mg 1-14 07 tablet by ity of tablet 00:00: mouth [place] 00 daily. [facility] clopidogrel 2017-03 2020- No [id number] 75mg Take 1 [facility] 75 mg 1-14 09-10 tablet by ity of tablet 00:00: 00:00 mouth [place] 00 :00 daily. [facility] clopidogrel 2017-03 2020- No [id number] 75mg Take 1 [facility] 75 mg 1-14 09-10 tablet by ity of tablet 00:00: 00:00 mouth [place] 00 :00 daily. [facility] DULoxetine 2017-03 Yes [id number] 30mg Take 1 [facility] 30 mg 0-22 capsule by ity of capsule 00:00: mouth [place] 00 daily. [facility] busPIRone 2017-03 Yes [id number] 10mg Take 1 Un jody 10 mg 0-22 tablet by ity of tablet 00:00: mouth 2 [place] 00 (two) Medical times Branch daily. DULoxetine 2017-03 Yes [id number] 30mg Take 1 [facility] 30 mg 0-22 capsule by ity of capsule 00:00: mouth [place] 00 daily. [facility] busPIRone 2017-03 Yes [id number] 10mg Take 1 Un jody 10 mg 0-22 tablet by ity of tablet 00:00: mouth 2 [place] 00 (two) Medical times Branch daily. DULoxetine 2017-03 2020- No [id number] 30mg Take 1 [facility] 30 mg 0-22 09-10 capsule by ity of capsule 00:00: 00:00 mouth [place] 00 :00 daily. [facility] busPIRone 2017-03 2020- No [id number] 10mg Take 1 U nivers 10 mg 0-22 09-10 tablet by ity of tablet 00:00: 00:00 mouth 2 [place] 00 :00 (two) Medical times Branch daily. DULoxetine 2017-03- No [id number] 30mg Take 1 [facility] 30 mg 0-22 09-10 capsule by ity of capsule 00:00: 00:00 mouth [place] 00 :00 daily. [facility] busPIRone 2017-03- No [id number] 10mg Take 1 U nivers 10 mg [...] mouth [place] 00 daily. [facility] pantoprazol 2019- No 40mg Take 1 Uni vers e 40 mg EC 11-10 tablet by ity of tablet 00:00: 00:00 mouth [place] 00 :00 daily. [facility] pantoprazol 2019- No 40mg Take 1 Uni vers e 40 mg EC 11-10 tablet by ity of tablet 00:00: 00:00 mouth [place] 00 :00 daily. [facility] pantoprazol 2019- No 40mg Take 1 Uni vers e 40 mg EC 11-10 tablet by ity of tablet 00:00: 00:00 mouth [place] 00 :00 daily. [facility] sennosides 2020- No 8.6mg Take 1 Uni vers 8.6 mg 11-10-10 tablet by ity of tablet 00:00: 00:00 mouth [place] 00 :00 daily. [facility] sennosides 2019- No 8.6mg Take 1 Uni vers 8.6 mg 11-1010 tablet by ity of tablet 00:00: 00:00 mouth [place] 00 :00 daily. [facility] Vital Signs Vital Name Observation Time Observation Value Comments Source Systolic blood 2021-06-01 15:26:00 136 mm[Hg] Kaela Martinybjessica pressure Diastolic blood 2021-06-01 15:26:00 90 mm[Hg] Nellie mcgrath Seybjessica pressure Heart rate 2021-06-01 15:26:00 82 /min Kaela echols Body temperature 2021-06-01 15:26:00 36 Aretha Kaycee jona Seybold Respiratory rate 2021-06-01 15:26:00 16 /min Kaycee Raymondold Body height 2021-06-01 15:26:00 177.8 cm Kaela echols Body weight 2021-06-01 15:26:00 101.152 kg Kaela echols BMI 2021-06-01 15:26:00 32.00 kg/m2 Kaela echols Systolic blood 2021-05-03 19:49:00 130 mm[Hg] Kaela Johnson pressure Diastolic blood 2021-05-03 19:49:00 78 mm[Hg] Kelse y Seybold pressure Heart rate 2021-05-03 19:49:00 109 /min Kaela echols Body temperature 2021-05-03 19:49:00 36.67 Aretha Kaycee Johnson Respiratory rate 2021-05-03 19:49:00 21 /min Kaycee Johnson Body height 2021-05-03 19:49:00 177.8 cm Kaela echols Body weight 2021-05-03 19:49:00 102.059 kg Kaela echols BMI 2021-05-03 19:49:00 32.28 kg/m2 Kaela echols Systolic blood 2020-01-12 19:23:00 145 mm[Hg] Univer sity of pressure [facility] Diastolic blood 2020-01-12 19:23:00 93 mm[Hg] [facility] Heart rate 2020-01-12 19:12:00 91 /min [facility] Respiratory rate 2020-01-12 19:12:00 17 /min [facility] ers[facility] Body height 2020-01-12 19:12:00 180.3 cm [facility] [place] [facility] Body weight 2020-01-12 19:12:00 108.5 kg [facility] BMI 2020-01-12 19:12:00 33.36 kg/m2 [facility] Oxygen saturation in 2020-01-12 19:12:00 92 /min [facility] of Arterial blood by [facility] Pulse oximetry Branch Systolic blood 2020-01-12 19:23:00 145 mm[Hg] Univer sity of pressure [facility] Diastolic blood 2020-01-12 19:23:00 93 mm[Hg] [facility]ive rsity of [facility] Heart rate 2020-01-12 19:12:00 91 /min Universi ty of [facility] Respiratory rate 2020-01-12 19:12:00 17 /min Univ ersity of [facility] Body height 2020-01-12 19:12:00 180.3 cm [facility] Body weight 2020-01-12 19:12:00 108.5 kg [facility] BMI 2020-01-12 19:12:00 33.36 kg/m2 [facility] Oxygen saturation in 2020-01-12 19:12:00 92 /min [facility] Arterial blood by [facility] Pulse oximetry Branch Oxygen saturation in 2019-11-13 19:01:00 96 /min [facility] Arterial blood by [facility] Pulse oximetry Branch Systolic blood 2019-11-13 19:01:00 131 mm[Hg] Univer sity of [facility] Diastolic blood 2019-11-13 19:01:00 73 mm[Hg] Unive rsity of [facility] Heart rate 2019-11-13 19:01:00 79 /[facility] 2019-11-13 19:01:00 36.17 Aretha [facility] 2019-11-13 19:01:00 24 /min [facility] [place] [facility] Body height 2019-11-13 19:01:00 180.3 cm [facility] Body weight 2019-11-13 19:01:00 109.317 kg [facility] BMI 2019-11-13 19:01:00 33.61 kg/m2 [facility] Respitory Rate 2018-08-16 16:55:00 Memori al [place] Systolic (mm Hg) 2018-08-16 16:55:00 Kuldeep rial [place] Diastolic (mm Hg) 2018-08-16 16:55:00 Mem orial [place] Heart Rate 2018-08-16 16:55:00 [facility] [place] Temperature Oral (F) 2018-08-16 13:25:00 96.9 F [facility] [place] Respitory Rate 2018-08-16 13:25:00 Memori al [place] Systolic (mm Hg) 2018-08-16 13:25:00 Kuldeep rial [place] Diastolic (mm Hg) 2018-08-16 13:25:00 Mem orial [place] Heart Rate 2018-08-16 13:25:00 [facility] [place] BMI Calculated 2018-08-16 07:46:00 Memori al [place] Height 2018-08-16 07:46:00 185.42 cm [facility] [place] Weight 2018-08-16 07:46:00 [facility] [place] Systolic (mm Hg) 2018-08-16 07:44:00 Kuldeep rial [place] Diastolic (mm Hg) 2018-08-16 07:44:00 Mem orial [place] Heart Rate 2018-08-16 07:44:00 [facility] [place] Respitory Rate 2018-08-16 07:44:00 Memori al [place] Temperature Oral (F) 2018-08-16 07:44:00 98.2 F [facility] [place] Temperature Oral (F) 2018-08-16 06:58:00 98.3 F [facility] [place] Weight 2018-08-16 01:17:00 [facility] [place] Height 2018-08-16 01:17:00 185.42 cm [facility] [place] BMI Calculated 2018-08-16 01:17:00 Memori al [place] Height 2018-06-19 10:53:00 185.42 cm [facility] [place] BMI Calculated 2018-06-19 10:53:00 Memori al [place] Weight 2018-06-19 10:53:00 [facility] [place] Temperature Oral (F) 2018-06-03 20:45:00 98.2 F [facility] [place] Systolic (mm Hg) 2018-06-03 20:45:00 Kuldeep rial [place] Diastolic (mm Hg) 2018-06-03 20:45:00 Mem orial [place] Respitory Rate 2018-06-03 20:45:00 Memori al [place] Heart Rate 2018-06-03 20:45:00 [facility] [place] Systolic (mm Hg) 2018-06-03 19:45:00 Kuldeep rial [place] Diastolic (mm Hg) 2018-06-03 19:45:00 Mem orial [place] Respitory Rate 2018-06-03 19:45:00 Memori al [place] Heart Rate 2018-06-03 19:45:00 [facility] [place] Systolic (mm Hg) 2018-06-03 19:15:00 Kuldeep rial [place] Diastolic (mm Hg) 2018-06-03 19:15:00 Mem orial [place] Respitory Rate 2018-06-03 19:15:00 Memori al [place] Heart Rate 2018-06-03 19:15:00 [facility] [place] Temperature Oral (F) 2018-06-03 18:45:00 97.8 F [facility] [place] BMI Calculated 2018-06-03 14:00:00 Memori al [place] Weight 2018-06-03 14:00:00 [facility] [place] Height 2018-06-03 14:00:00 185.4 cm [facility] [place] Temperature Oral (F) 2018-06-03 12:15:00 98.1 F [facility] [place] BMI Calculated 2018-06-02 23:24:00 Memori al [place] Weight 2018-06-02 23:24:00 [facility] [place] Height 2018-06-02 23:24:00 185.42 cm [facility] [place] Weight 2018-06-02 20:36:00 [facility] [place] Respitory Rate 2018-05-21 12:44:00 Memori al [place] Systolic (mm Hg) 2018-05-21 12:44:00 Kuldeep rial [place] Diastolic (mm Hg) 2018-05-21 12:44:00 Mem orial [place] Temperature Oral (F) 2018-05-21 12:44:00 98.3 F [facility] [place] Heart Rate 2018-05-21 12:44:00 [facility] [place] Systolic (mm Hg) 2018-05-21 09:00:00 Kuldeep rial [place] Diastolic (mm Hg) 2018-05-21 09:00:00 Mem orial [place] Heart Rate 2018-05-21 09:00:00 [facility] [place] Respitory Rate 2018-05-21 09:00:00 Memori al [place] Temperature Oral (F) 2018-05-21 09:00:00 97.8 F [facility] [place] Systolic (mm Hg) 2018-05-21 05:00:00 Kuldeep rial [place] Diastolic (mm Hg) 2018-05-21 05:00:00 Mem orial [place] Temperature Oral (F) 2018-05-21 05:00:00 98.0 F [facility] [place] Respitory Rate 2018-05-21 05:00:00 Memori al [place] Heart Rate 2018-05-21 05:00:00 [facility] [place] Weight 2018-05-09 18:49:00 [facility] [place] BMI Calculated 2018-05-09 18:49:00 Memori al [place] Height 2018-05-09 18:49:00 185.42 cm [facility] [place] Systolic (mm Hg) 2018-03-01 19:00:00 Kuldeep rial [place] Diastolic (mm Hg) 2018-03-01 19:00:00 Mem orial [place] Systolic (mm Hg) 2018-03-01 18:00:00 Kuldeep rial [place] Diastolic (mm Hg) 2018-03-01 18:00:00 Mem orial [place] Temperature Oral (F) 2018-03-01 18:00:00 98.0 F [facility] [place] Systolic (mm Hg) 2018-03-01 17:00:00 Kuldeep rial [place] Diastolic (mm Hg) 2018-03-01 17:00:00 Mem orial [place] Temperature Oral (F) 2018-03-01 14:00:00 98.1 F [facility] [place] Temperature Oral (F) 2018-03-01 11:42:00 98 F [facility] [place] Respitory Rate 2018-02-28 14:00:00 Memori al [place] Respitory Rate 2018-02-28 13:00:00 Memori al [place] Respitory Rate 2018-02-28 12:00:00 Mem[facility] al [place] BMI Calculated 2018-02-28 10:03:00 Mem[facility] al [place] Height 2018-02-28 10:03:00 185.42 cm [facility] [place] Weight 2018-02-28 10:03:00 [facility] [place] BMI Calculated 2018-02-28 10:01:00 Memori al [place] Height 2018-02-28 10:01:00 185.42 cm [facility] [place] Weight 2018-02-28 10:01:00 [facility] [place] Temperature Oral (F) 2018-02-28 08:15:00 98.0 F [facility] [place] Systolic (mm Hg) 2018-02-28 08:15:00 Kuldeep rial [place] Diastolic (mm Hg) 2018-02-28 08:15:00 Mem orial [place] Respitory Rate 2018-02-28 08:15:00 Memori al [place] Systolic (mm Hg) 2018-02-28 07:45:00 Kuldeep rial [place] Diastolic (mm Hg) 2018-02-28 07:45:00 Mem orial [place] Respitory Rate 2018-02-28 07:45:00 Memori al [place] Systolic (mm Hg) 2018-02-28 07:27:00 Kuldeep rial [place] Diastolic (mm Hg) 2018-02-28 07:27:00 Mem orial [place] Temperature Oral (F) 2018-02-28 07:27:00 98.0 F [facility] [place] Respitory Rate 2018-02-28 07:27:00 Memori al [place] Temperature Oral (F) 2018-02-28 05:30:00 97.9 F [facility] [place] Height 2018-02-28 03:15:00 185.42 cm [facility] [place] Heart Rate 2018-02-28 03:15:00 [facility] [place] BMI Calculated 2018-02-28 03:15:00 Memori al [place] Weight 2018-02-28 03:15:00 [facility] [place] Systolic (mm Hg) 2018-02-21 16:48:00 Kuldeep rial [place] Diastolic (mm Hg) 2018-02-21 16:48:00 Mem orial [place] Temperature Oral (F) 2018-02-21 16:48:00 98.3 F [facility] [place] Respitory Rate 2018-02-21 16:48:00 Memori al [place] Heart Rate 2018-02-21 16:48:00 [facility] [place] Heart Rate 2018-02-21 13:47:00 [facility] [place] Temperature Oral (F) 2018-02-21 13:47:00 97.7 F [facility] Systolic (mm Hg) 2018-02-21 13:47:00 [facility] Diastolic (mm Hg) 2018-02-21 13:47:00 [facility] Respitory Rate 2018-02-21 13:47:00 [facility] Temperature Oral (F) 2018-02-21 10:00:00 98.3 F [facility] Systolic (mm Hg) 2018-02-21 10:00:00 [facility] Diastolic (mm Hg) 2018-02-21 10:00:00 [facility] Heart Rate 2018-02-21 10:00:00 [facility] Respitory Rate 2018-02-21 10:00:00 [facility] BMI Calculated 2018-02-13 20:53:00 [facility] Height 2018-02-13 20:53:00 185.42 cm [facility] Weight 2018-02-13 20:53:00 [facility] Height 2018-02-13 18:42:00 185.42 cm [facility] Weight 2018-02-13 18:42:00 [facility] BMI Calculated 2018-02-13 18:42:00 [facility] Systolic (mm Hg) 2018-02-13 18:42:00 [facility]uldeep [facility] Diastolic (mm Hg) 2018-02-13 18:42:00 [facility] Procedures Procedure Date / Time Performing Clinician Source Performed [id number] 2022-06-24 00:00:00 [facility].[email or web address] [facility] [id number] 2022-06-24 00:00:00 [email or web address] [facility] [id number] 2022-06-24 00:00:00 [facility] [facility] [id number] 2022-06-24 00:00:00 NGUCH.08 [facility] [id number] 2022-06-24 00:00:00 NGUCH.08 [facility] [id number] 2022-06-24 00:00:00 NGUCH.08 [facility] EXTERNAL PROVIDER - ADC 2020-11-03 05:01:00 Doctor Unassigned, [place] [facility] REFERRAL [facility] AGREEMENTS AUTHORIZATIONS 2019-11-11 05:01:00 Doctor Unassigned, [facility] AND IRREVOCABLE [facility] ASSIGNMENTS (FORM 2001) CABG x 4 - Coronary 2017-11-02 05:00:00 [facility] artery bypass grafts x 4 CABG - Coronary artery 2017-11-02 05:00:00 Doc vasquez Seymour bypass graft Repair of umbilical 2016-03-05 00:00:00 [facility] hernia Encounters Start End Encounter Admission Attending Care Care Encounter Source Date/Time Date/Time Type Type Clinicians Facility Department ID 2018-06-02 Inpatient E [facility] MED [id number] [facility] oria 16:35:00 l [facility] 2022-06-24 2022-06-25 Inpatient EM NICHOLAS Red INTE.02 [id number] [facility] 02:18:00 11:01:00 Jamal 55 [facility] 2022-06-24 2022-06-24 Outpatient ELSA Red LABO [id number] [facility] 06:25:00 06:25:00 Jamal 77 [facility] 2022-05-11 2022-05-11 Outpatient KAELA ALLEN [id number] Kaela 00:00:00 00:00:00 PABLO Seybol d 2021-06-17 2021-06-17 Outpatient KAELA ALLEN [id number] Kaela 00:00:00 00:00:00 PABLO Seybol d 2021-06-13 2021-06-13 Outpatient LEO KAELA BRICE [id number] [place]ael[place] 00:00:00 00:00:00 VERITO Seybol d 2021-06-01 2021-06-01 Office Garfield Allen 1.2.840.114 [id number] [place] 11:00:00 11:15:00 Visit Pablo Méndez 350.1.13.13 Se ybold 1.2.7.2.686 [id number] 2021-05-31 2021-05-31 Outpatient TOSHIA KAELA BRICE [id number] [place]ael[place] 10:30:00 10:30:00 PABLO Seybol d 2021-05-04 2021-05-04 Outpatient LAB90 KAELA BRICE [id number] Kaela 09:45:00 09:45:00 Seybol d 2021-05-04 2021-05-04 Outpatient TOSHIA KAELA BRICE [id number] [place]aela 00:00:00 00:00:00 PABLO Seybol d 2021-05-03 2021-05-03 Office Garfield Allen 1.2.840.114 [id number] [place]aela 14:15:00 15:00:00 Visit Pablo Méndez 350.1.13.13 Se ybold 1.2.7.2.686 [id number] 2021-05-03 2021-05-03 Outpatient TOSHIA KAELA BRICE [id number] [place]ael[place] 00:00:00 00:00:00 PABLO Seybol d 2021-01-13 2021-01-13 Outpatient R KEYONA SUAZO [facility] [id number] Univers 15:00:00 15:00:00 KEYONA SUAZO i [facility] 2020-11-03 2020-11-03 Orders Doctor STEWART 1.2.840.114 [id number] Univers 00:00:00 00:00:00 Only Unassigned, EMMA 350.1.13.10 ity of [place] [facility] 4.2.7.2.686 Oni as [phone] [address] 2020-07-12 2020-07-12 [facility] [id number] Univers 13:00:00 13:00:00 JD [facility]ides [facility] 2020-05-11 2020-05-11 [facility] 1.2.840.114 [id number] 00:00:00 00:00:00 Outreach Mahesh PRIMARY 350.1.13.10 [facility] 4.2.7.2.686 PAVILLION [id number] 2020-05-11 2020-05-11 [facility] 1.2.840.114 [id number] Univers 00:00:00 00:00:00 Outreach Mahesh PRIMARY 350.1.13.10 i ty of [place] [id number] [address] 2020-02-06 2020-02-06 [facility] [id number] Univers 13:00:00 13:00:00 LUCITA smith [facility] 2020-01-19 2020-01-19 Telephone [facility] 1.2.270.576 [id number] 00:00:00 00:00:00 Jd Fierro 350.1.13.10 [place] 4.2.7.2.686 Professio [phone] [address] 2020-01-19 2020-01-19 [facility] 1.2.768.750 [id number] Univers 00:00:00 00:00:00 Jd Fierro 350.1.13.10 [place] [phone] Wy dic[address] 2020-01-14 2020-01-14 Outpatient [facility] [id number] Univers 11:40:00 11:40:00 [facility] 2020-01-12 2020-01-12 Office [facility] 1.2.840.114 [id number] 12:41:56 13:52:29 Visit Jd Fierro 350.1.13.10 [place] 4.2.7.2.686 Professio [phone] [address] 2020-01-12 2020-01-12 Office [facility] 1.2.840.114 [id number] Univers 12:41:56 13:52:29 Visit Jd Fierro 350.1.13.10 [place] [phone] Wy dical [address] 2020-01-12 2020-01-12 [facility] [id number] Univers 13:00:00 13:00:00 JD [facility] 2019-11-13 2019-11-13 Office Care, Denny Primary LETY 1.2.840 .114 [id number] Univers 13:03:27 14:10:15 Visit Arsen Dixon [facility] 350.1.13.10 ity of [facility] 4.2.7.2.[place] [phone] [facility] - [address] [place] [address] 2019-11-13 2019-11-13 Telephone Arsen Dixon LETY 1.2.840.114 [id number] Univers 00:00:00 00:00:00 [facility] 350.1.13.10 it y of [place] [phone] [facility] [address] 2019-11-11 2019-11-11 Outpatient R ARSEN DIXON [facility] [id number] Univers 10:30:00 10:30:00 [facility] 2019-11-11 2019-11-11 Orders Doctor STEWART 1.2.840.114 [id number] Univers 00:00:00 00:00:00 Only Unassigned, EMMA 350.1.13.10 ity of [place] [facility] 4.2.7.2.686 Oni as [phone] [facility] 009 Branch 2019-05-27 2019-05-27 Telephone TERRY Roa 1.2.840.114 [id number] Univers 00:00:00 00:00:00 Sofia CARTER 350.1.13.10 it y of [facility] [place].2.[place] [id number] [facility] 037 Branch 2019-03-28 2019-03-28 Telephone HUMPHREY Mcmahon 1.2.840.114 [id number] Univers 00:00:00 00:00:00 [facility] 350.1.13.10 [facility] 4.2.7.2.686 Alec velasquez [phone] [place] [id number] [place] 2018-08-16 2018-08-16 Observatio nullFlavo [facility] [id number] Memoria 01:10:48 18:24:00 n r Seymour 03 [facility] 2018-08-16 2018-08-16 Observatio nullFlavo [facility] 3477 [id number] Memoria 01:10:48 18:24:00 n r Seymour 03 [facility] 2018-08-15 2018-08-16 Outpatient Emery [facility] [id number] 20:10:48 13:24:00 Gladys Yogesh Root 2018-08-16 2018-08-16 Outpatient E [facility] [id number] [facility] 01:28:00 01:28:00 2018-06-21 2018-06-21 Bedded nullFlavo [facility] [id number] Memoria 15:57:00 21:41:00 Outpatient r [place] 02 [facility] 2018-06-21 2018-06-21 Bedded nullFlavo [facility] [id number] Memoria 15:57:00 21:41:00 Outpatient r Seymour 02 [facility] 2018-06-21 2018-06-21 Outpatient Pedro [facility] [id number] 10:57:00 16:41:00 Pepito Tapia 2018-06-21 2018-06-21 Outpatient [facility] [id number] Memoria 10:57:00 10:57:00 [facility] 2018-06-02 2018-06-03 Inpatient nullFlavo [facility] [id number] Memoria 20:34:00 23:50:00 r Roselle 01 [facility] 2018-06-02 2018-06-03 Inpatient nullFlavo [facility] [id number] Memoria 20:34:00 23:50:00 r Seymour 01 [facility] 2018-06-02 2018-06-03 Outpatient Eddy [facility] [id number] 15:34:00 18:50:00 Timothy 2018-05-09 2018-05-21 Inpatient nullFlavo [facility] [id number] Memoria 18:05:00 17:09:00 r Seymour 66 [facility] 2018-05-09 2018-05-21 Inpatient nullFlavo [facility] [id number] Memoria 18:05:00 17:09:00 r Seymour 66 [facility] 2018-05-09 2018-05-21 Outpatient Gabe [facility] [id number] 12:05:00 12:09:00 Olaoluwapo 66 M 2018-05-08 2018-05-08 [place] [id number] Memoria 19:30:00 19:30:00 Pre-Reg r Cardiology 03 [facility] 2018-05-08 2018-05-08 [place] [id number] Memoria 19:30:00 19:30:00 Pre-Reg r Cardiology 03 [facility] 2018-05-08 2018-05-08 Outpatient MHIE [place] [id number] Memoria 13:30:00 13:30:00 03 [facility] 2018-05-08 2018-05-08 Outpatient Seymour [facility] [id number] 13:30:00 13:30:00 Hectorracquel Vanegas 03 2018-04-29 2018-04-29 Ambulatory nullFlavo [facility] [id number] Memoria 16:30:00 16:30:00 Pre-Reg r Cardiology 02 [facility] 2018-04-29 2018-04-29 [place] [id number] Memoria 16:30:00 16:30:00 Pre-Reg r Cardiology 02 [facility] 2018-04-29 2018-04-29 Outpatient MHIE MHIE [id number] Memoria 10:30:00 10:30:00 02 [facility] 2018-04-29 2018-04-29 [id number] 10:30:00 10:30:00 Hector Vanegas 02 2018-04-05 2018-04-06 Outpt Diag nullFlavo [facility] [id number] Memoria 22:00:00 05:59:00 Services r Outpatient 00 [facility] 2018-04-05 2018-04-06 Outpt Diag nullFlavo [facility] [id number] Memoria 22:00:00 05:59:00 Services r Outpatient 00 l [facility] 2018-04-05 2018-04-05 Outpatient Nghia Oneal 2.16.840. 2.16.840. 1. [id number] 16:00:00 23:59:00 M [id number]. [id number] 00 3.615.30 5.30 2018-02-28 2018-03-01 Inpatient nullFlavo [facility] [id number] Memoria 09:45:00 20:05:00 r Roselle 61 l [facility] 2018-02-28 2018-03-01 Inpatient nullFlavo [facility] [id number] Memoria 09:45:00 20:05:00 r Roselle 63 l [facility] 2018-02-28 2018-03-01 Outpatient Victor Manuel Jamie Ayala [facility] [id number] 03:45:00 14:05:00 A 63 2018-02-28 2018-02-28 Emergency nullFlavo [facility] [id number] Memoria 03:10:00 08:14:00 r Roselle 00 l [facility] 2018-02-28 2018-02-28 Emergency nullFlavo [facility] [id number] Memoria 03:10:00 08:14:00 r Seymour 00 l [facility] 2018-02-27 2018-02-28 Outpatient JACKIE Medina [facility] [id number] 21:10:00 02:14:00 Brigido Lyle 2018-02-13 2018-02-21 Inpatient nullFlavo [facility] [id number] Memoria 20:01:00 20:00:00 r Roselle 46 [facility] 2018-02-13 2018-02-21 Inpatient nullFlavo [facility] [id number] Memoria 20:01:00 20:00:00 r Roselle 46 [facility] 2018-02-13 2018-02-21 Outpatient Venkata [facility] [id number] 14:01:00 14:00:00 Chi Camilla Gia 2018-02-13 2018-02-14 Outpatient nullFlavo [facility] [id number] Memoria 18:30:00 05:59:59 r Cardiology 01 [facility] 2018-02-13 2018-02-14 Outpatient nullFlavo [facility] [id number] Memoria 18:30:00 05:59:59 r Cardiology 01 [facility] 2018-02-13 2018-02-13 Outpatient Seymour [facility] [id number] 12:30:00 23:59:59 Hector Gene 2018-02-13 2018-02-13 Outpatient RAMYA [facility] [id number] Memoria 12:30:00 12:30:00 01 [facility] 2018-02-11 2018-02-11 Ambulatory nullFlavo [facility] [id number] Memoria 17:00:00 17:00:00 Pre-Reg r Cardiology 00 [facility] 2018-02-11 2018-02-11 Ambulatory nullFlavo [facility] [id number] Memoria 17:00:00 17:00:00 Pre-Reg r Cardiology 00 [facility] 2018-02-11 2018-02-11 Outpatient Roselle, [facility] [id number] 11:00:00 11:00:00 Hector Gene Results Test Description Test Time Test Comments [...] . [Automated mess age] The system which [employer] nerated this result tra nsmitted reference range : 0-. The reference range was not used to interpr et this result as normal/abnormal . HDL CHOLESTEROL 47 MG/DL 40-59 N (test code = HDL) NON-HDL CHOLESTEROL 89 mg/dL <130 (test code = NHDL) LIPOPROTEIN LDL 82 MG/DL 0-129 N <100 OPTIMAL 100 - 129 (test code = LDL) NEAR OPTIM AL/ABOVE DAOMCHA733 - 15 9 RRWFPMOVKJ566 - 189 HIGH>OR= 190 VE RY HIGHNOTE THAT G UIDELINES ARE PROVIDED BY NATIONAL CHOLESTEROLEDUC ATION PROGRAM ADULT T REATMENT PANEL III LDL/HDL (test code 1.74 Ratio See_Comment N [Automat ed message] The = LDL/HDL) system which [employer] nerated this result tra nsmitted reference range : 1.48-3.22 Avg. The reference range was not used to interpr et this result as normal/abnormal . BASIC METABOLIC [id number] 05:35:00 Test Item Value Reference Range Interpretation [...] MG/DL 8.5-10.1 L = CA) CBC W/AUTO [id number] 05:34:00 Test Item Value Reference Range Interpretation [...] MANUAL DIFF REQUIRED NO DIFF/SCN CRITERIA SLIDE Sue JONES (test code = MDIFF) CONSISTA NT WITH AUTO DIFFERENTI AL. COAGULATION TIME [id number] 02:25:00 Test Item Value Reference Range Interpretation Comments COAGULATION TIME ACTIVATED (test code 267 SEC 74-125 H = ACT) - XR CHEST 1 [id number] 01:41:00 [facility] : 1955 Sex: M Name: PATITO LUNA [facility] : 1955 Age/S: 66 / M [address] Unit #: [id number] Loc: [place] [address] Phys: Sydney De Leon MD Acct: [id number] Dis Date: Status: REG ER PHONE #: [phone] Exam Date: 06/24/2022 0139 FAX #: Reason: chest pain EXAMS: CPT: [id number] XR CHEST 1 V 63562 Fluoro Time: DAP (Gy m2): Air Kerma (mGy): AP Portable Chest Location Code M12 HISTORY: chest pain F INDINGS: The left lung base and costophrenic angle are not fully included in the cnkjo-lt-yhwi. Mild atelectatic changes are present in the left lower lobe. Right lung is clear. There is no pneumothorax. Cardiac silhouette and mediastinum appear within normal limits. IMPRESSION: Mild left basilar subs egmental atelectasis. Limited study. at 0141 Reported and signed by: Janet Queen M.D. CC: Sydney De Leon MD PAGE 1 Signed Report Name: PATITO LUNA [facility] : 1955 Age/S: 66 / M [address] Unit #:[id number] Loc: [place] [address] Phys: Sydney De Leon MD Acct: [id number] Dis Date: Status: REG ER PHONE #: [phone] Exam Date: 06/24/2022 0139 FAX #: Reason: chest pain EXAMS: CPT: [id number] XR CHEST 1 V 60461 Fluoro Time: DAP (Gy m2): Air Kerma (mGy): (Continued) Technologist: Alice Posada, RT(R)(CT) Trnscb Date/Time: 06/24/2022 (140) DelaneyMA50 Orig Print D/T: S: 06/24/2022 (143) PAGE 2 Signed ReportTROP-I HIGH [id number] 01:38:00 Test Item Value Reference Range Interpretation [...] URLs may varyby method. Completed by Nursing: [id number]-[id number] 01:38:00 Test Item Value Reference Range Interpretation [...] TESTS AND APPROPRIATECLIN ICAL EUALUATIONS. BASIC METABOLIC [id number] 01:38:00 Test Item Value Reference Range Interpretation [...] the recommended for nadja for GFRby the [facility] on for Adults.The GFR will [...] CK) Completed by Nursing: NONT PRO-BRAIN NATRIURETIC [id number] 01:38:00 Test Item Value Reference Range Interpretation Comments NT PRO-BRAIN NATRIURETIC PEPTI 127 PG/ML 0-100 H (test code = PROBNP) Completed by Nursing: NOCBC W/O [id number] 01:19:00 Test Item Value Reference Range Interpretation [...] code = 9.90 fL 7.0-9.6 H MPV) CHEM [id number] 09:13:00 Test Item Value Reference Range Interpretation Comments Bili Indirect Unable to See_Comment [Automated (test code = Bili Calculate message] T he system Indirect) which generated this result transmitted reference range : <=1.0. The reference range was not used to interpret this result as normal/abnormal . [facility]2019-06-14 09:13:00 Test Item Value Reference Range Interpretation Comments Bili Direct (test code no gt See_Comment [Aut omated message] The = Bili Direct) system which generated this result tra nsmitted reference range : <=0.3. The reference r ondina was not used to int erpret this result as cassie l/abnormal. [facility]2019-06-14 09:13:00 Test Item Value Reference Range Interpretation Comments Total Protein (test code = Total 6.9 6.4-8.4 Protein) [facility]2019-06-14 09:13:00 Test Item Value Reference Range Interpretation Comments Albumin Lvl (test code = Albumin Lvl) 3.0 3.5-5.0 [facility]2019-06-14 09:13:00 Test Item Value Reference Range Interpretation Comments Globulin (test code = Globulin) 3.9 2.7-4.2 [facility]2019-06-14 09:13:00 Test Item Value Reference Range Interpretation Comments Alk Phos (test code = Alk Phos) 214 39-136 [facility]2019-06-14 09:13:00 Test Item Value Reference Range Interpretation Comments Bili Total (test code = Bili Total) 0.3 0.2-1.3 [place] [id number] 09:13:00 Test Item Value Reference Range Interpretation Comments AST (test code = AST) 207 See_Comment [Auto mated message] The system which ge nerated this result transmit garrett reference range : <=37. The reference range was not used to interpr et this result as cassie l/abnormal. [facility]RQEGW4704-49-64 09:13:00 Test Item Value Reference Range Interpretation Comments A/G Ratio (test code = A/G Ratio) 0.8 1 0.7-1.6 [facility]2019-06-14 09:13:00 Test Item Value Reference Range Interpretation Comments ALT (test code = ALT) 148 See_Comment [Auto mated message] The system which ge nerated this result transmit garrett reference range : <=65. The reference range was not used to interpr et this result as cassie l/abnormal. [facility]algliwHHQSPYULDHIR0896-82-41 09:13:00 Test Item Value Reference Range Interpretation Comments AGAP (test code = AGAP) 11.2 10.0-20.0 [facility]aBlkngchQMQZPKSFXBAQ5115-12-98 09:13:00 Test Item Value Reference Range Interpretation Comments eGFR (test code = eGFR) 85 [facility]aGtvgauuCHKTRFLGFEZP6349-91-70 09:13:00 Test Item Value Reference Range Interpretation Comments Creatinine Lvl (test code = Creatinine 0.96 0.50-1.40 Lvl) [facility]aDqlcmaeNOEMNQCBUXVF7930-61-12 09:13:00 Test Item Value Reference Range Interpretation Comments Potassium Lvl (test code = Potassium 4.2 3.5-5.1 Lvl) [facility]aLgkynfxZTVLMLGEBPFD7441-74-57 09:13:00 Test Item Value Reference Range Interpretation Comments Sodium Lvl (test code = Sodium Lvl) 141 135-145 [facility]aCyhhhpvJXMTAPGAOALO3475-45-26 09:13:00 Test Item Value Reference Range Interpretation Comments Chloride Lvl (test code = Chloride Lvl) 110 95-109 [facility]aUbtjxooFRDLUDFENJUV8378-76-47 09:13:00 Test Item Value Reference Range Interpretation Comments CO2 (test code = CO2) 24 24-32 [facility]aDisqnupLYYTVCLYHERH5922-89-12 09:13:00 Test Item Value Reference Range Interpretation Comments BUN (test code = BUN) 19 7-22 [facility]aPrqexvlPMSDQHIIEYTN9946-23-06 09:13:00 Test Item Value Reference Range Interpretation Comments Glucose Lvl (test code = Glucose Lvl) 86 70-99 [facility]aHbbhrmnFVUKIDTQIMBR0791-86-04 09:13:00 Test Item Value Reference Range Interpretation Comments Calcium Lvl (test code = Calcium Lvl) 9.0 8.5-10.5 [facility]tfdivcZFCAUTPZYY3946-06-14 09:13:00 Test Item Value Reference Range Interpretation Comments Microcyte (test code = 1+ *ABN*(08/16/18 Microcyte) 4:13 AM) [facility] CenterSshxzyaDBTNMTWOOO6891-23-22 09:13:00 Test Item Value Reference Range Interpretation Comments Neutrophils # (test code = Neutrophils 2.7 1.5-8.1 #) [facility] CenterCemgzlyKUCUILDARI8474-48-23 09:13:00 Test Item Value Reference Range Interpretation Comments Lymphocytes # (test code = Lymphocytes 1.3 1.0-5.5 #) [facility] CenterOaiggntUIFJOFLDOL7263-51-09 09:13:00 Test Item Value Reference Range Interpretation Comments Segs (test code = Segs) 56.2 45.0-75.0 [facility] CenterXuyaqwxNCQUMTQGTW5426-80-25 09:13:00 Test Item Value Reference Range Interpretation Comments Monocytes # (test code 0.4 See_Comment [Aut omated message] The = Monocytes #) system which generated this result tra nsmitted reference range : <=0.8. The reference r ondina was not used to int erpret this result as normal/abnormal . [facility] CenterYvhysduCHIREIJDPY1511-72-99 09:13:00 Test Item Value Reference Range Interpretation Comments Lymphocytes (test code = Lymphocytes) 26.8 20.0-40.0 [facility] CenterKziwyhoGLJMTZASFC2872-16-29 09:13:00 Test Item Value Reference Range Interpretation Comments Monocytes (test code = Monocytes) 8.7 2.0-12.0 [facility] CenterYlxesaiVUJXEEDJRK1326-44-52 09:13:00 Test Item Value Reference Range Interpretation Comments Basophils (test code = 2.1 See_Comment [Aut omated message] The Basophils) system which ge nerated this result tra nsmitted reference range : <=1.0. The reference r ondina was not used to int erpret this result as normal/abnormal . [facility] CenterGyipiqlRGYQQLHGIV7840-57-43 09:13:00 Test Item Value Reference Range Interpretation Comments Eosinophils (test code = 6.2 See_Comment [A utomated message] The Eosinophils) system which ge nerated this result tra nsmitted reference range : <=4.0. The reference r ondina was not used to int erpret this result as normal/abnormal . [facility] CenterDicdtsvOVMOYNJUHF5572-87-26 09:13:00 Test Item Value Reference Range Interpretation Comments Basophils # (test code 0.1 See_Comment [Aut omated message] The = Basophils #) system which generated this result tra nsmitted reference range : <=0.2. The reference r ondina was not used to int erpret this result as normal/abnormal . [facility] CenterRisoesuLWTVXFQGEM1634-73-40 09:13:00 Test Item Value Reference Range Interpretation Comments Eosinophils # (test code 0.3 See_Comment [A utomated message] The = Eosinophils #) system whic h generated this result tra nsmitted reference range : <=0.5. The reference r ondina was not used to int erpret this result as normal/abnormal . [facility] CenterDwakyaxQTGVLXZTBH0363-13-83 09:13:00 Test Item Value Reference Range Interpretation Comments MCV (test code = MCV) 77.7 80.0-94.0 [facility] CenterXoohbzcDDXNUIHRIF9164-70-50 09:13:00 Test Item Value Reference Range Interpretation Comments Hgb (test code = Hgb) 10.5 14.0-18.0 [facility] CenterNyrzbdjAECDURKSLS5627-99-24 09:13:00 Test Item Value Reference Range Interpretation Comments Hct (test code = Hct) 33.2 42.0-54.0 [facility] CenterQweuitzEEANYKHNUU3732-73-09 09:13:00 Test Item Value Reference Range Interpretation Comments WBC (test code = WBC) 4.7 3.7-10.4 [facility] CenterZggkxnpPCGPKBPQOE8826-53-97 09:13:00 Test Item Value Reference Range Interpretation Comments RBC (test code = RBC) 4.27 4.70-6.10 [facility] CenterQundnlpMZJAMULYXV1366-54-21 09:13:00 Test Item Value Reference Range Interpretation Comments MCH (test code = MCH) 24.5 pg 27.0-31.0 [facility] CenterQbuhdebNTSQAZBDQI6101-37-74 09:13:00 Test Item Value Reference Range Interpretation Comments Platelet (test code = Platelet) 267 133-450 [facility] CenterQtjyokmRTKWKQWYHL5530-86-73 09:13:00 Test Item Value Reference Range Interpretation Comments MPV (test code = MPV) 7.8 7.4-10.4 [facility] CenterXrmlzalUUIBLEVKQX0043-09-85 09:13:00 Test Item Value Reference Range Interpretation Comments MCHC (test code = MCHC) 31.5 32.0-36.0 [facility] CenterSdfmobiPKRFSDRYRW2340-74-98 09:13:00 Test Item Value Reference Range Interpretation Comments RDW (test code = RDW) 19.2 11.5-14.5 [facility]2019-06-14 09:13:00 Test Item Value Reference Range Interpretation Comments Bili Indirect Unable to See_Comment [Automated (test code = Bili Calculate message] T he system Indirect) which generated this result transmitted reference range : <=1.0. The reference range was not used to interpret this result as normal/abnormal . [facility]2019-06-14 09:13:00 Test Item Value Reference Range Interpretation Comments Bili Direct (test code no gt See_Comment [Aut omated message] The = Bili Direct) system which generated this result tra nsmitted reference range : <=0.3. The reference r ondina was not used to int erpret this result as cassie l/abnormal. [facility]2019-06-14 09:13:00 Test Item Value Reference Range Interpretation Comments Total Protein (test code = Total 6.9 6.4-8.4 Protein) [facility]2019-06-14 09:13:00 Test Item Value Reference Range Interpretation Comments Albumin Lvl (test code = Albumin Lvl) 3.0 3.5-5.0 [facility]2019-06-14 09:13:00 Test Item Value Reference Range Interpretation Comments Globulin (test code = Globulin) 3.9 2.7-4.2 [facility]2019-06-14 09:13:00 Test Item Value Reference Range Interpretation Comments Alk Phos (test code = Alk Phos) 214 39-136 [facility]2019-06-14 09:13:00 Test Item Value Reference Range Interpretation Comments Bili Total (test code = Bili Total) 0.3 0.2-1.3 [facility]2019-06-14 09:13:00 Test Item Value Reference Range Interpretation Comments AST (test code = AST) 207 See_Comment [Auto mated message] The system which ge nerated this result transmit garrett reference range : <=37. The reference range was not used to interpr et this result as cassie l/abnormal. [facility]2019-06-14 09:13:00 Test Item Value Reference Range Interpretation Comments A/G Ratio (test code = A/G Ratio) 0.8 1 0.7-1.6 [facility]2019-06-14 09:13:00 Test Item Value Reference Range Interpretation Comments ALT (test code = ALT) 148 See_Comment [Auto mated message] The system which ge nerated this result transmit garrett reference range : <=65. The reference range was not used to interpr et this result as cassie l/abnormal. [facility]yxRSNGTNXMWESD2568-79-29 09:13:00 Test Item Value Reference Range Interpretation Comments AGAP (test code = AGAP) 11.2 10.0-20.0 [facility]aRmciqcdTMISBCTFMBUD8823-25-90 09:13:00 Test Item Value Reference Range Interpretation Comments eGFR (test code = eGFR) 85 [facility]aSyssybiGTHBYTZMVCAH8477-49-75 09:13:00 Test Item Value Reference Range Interpretation Comments Creatinine Lvl (test code = Creatinine 0.96 0.50-1.40 Lvl) [facility]aEkxevknKWPEZWEAUBNP0172-11-20 09:13:00 Test Item Value Reference Range Interpretation Comments Potassium Lvl (test code = Potassium 4.2 3.5-5.1 Lvl) [facility]aGxoxfonTYFAHOYXUWYX2043-35-27 09:13:00 Test Item Value Reference Range Interpretation Comments Sodium Lvl (test code = Sodium Lvl) 141 135-145 [facility]aKmpzeyaXFVQRVWKGLZW3883-93-73 09:13:00 Test Item Value Reference Range Interpretation Comments Chloride Lvl (test code = Chloride Lvl) 110 95-109 [facility]aEmsrcehHTAQHIAWRABG7594-87-28 09:13:00 Test Item Value Reference Range Interpretation Comments CO2 (test code = CO2) 24 24-32 [facility]aXheyfvmEURCGLAPNWGR0918-20-94 09:13:00 Test Item Value Reference Range Interpretation Comments BUN (test code = BUN) 19 7-22 [facility]aCcedtruLOUBWULURKAL0370-35-86 09:13:00 Test Item Value Reference Range Interpretation Comments Glucose Lvl (test code = Glucose Lvl) 86 70-99 [facility]aDwspdvqJAGYCJAEVYOC2542-96-66 09:13:00 Test Item Value Reference Range Interpretation Comments Calcium Lvl (test code = Calcium Lvl) 9.0 8.5-10.5 [facility]HcfyktxKCBGVYIWWE3249-46-93 09:13:00 Test Item Value Reference Range Interpretation Comments Microcyte (test code = 1+ *ABN*(08/16/18 Microcyte) 4:13 AM) [facility] CenterHncfymkQLHDTBVBHJ7513-03-01 09:13:00 Test Item Value Reference Range Interpretation Comments Neutrophils # (test code = Neutrophils 2.7 1.5-8.1 #) [facility] CenterYdcerxhFYTVTJNFNU3196-28-60 09:13:00 Test Item Value Reference Range Interpretation Comments Lymphocytes # (test code = Lymphocytes 1.3 1.0-5.5 #) [facility] CenterAiveexiLQLXSZQBWJ1037-00-10 09:13:00 Test Item Value Reference Range Interpretation Comments Segs (test code = Segs) 56.2 45.0-75.0 [facility] CenterBihrkslIWCJGAJVGE5464-82-31 09:13:00 Test Item Value Reference Range Interpretation Comments Monocytes # (test code 0.4 See_Comment [Aut omated message] The = Monocytes #) system which generated this result tra nsmitted reference range : <=0.8. The reference r ondina was not used to int erpret this result as normal/abnormal . [facility] CenterVkvtgbbVOEVYZCBYX9660-40-66 09:13:00 Test Item Value Reference Range Interpretation Comments Lymphocytes (test code = Lymphocytes) 26.8 20.0-40.0 [facility] CenterTjbkberNRZZGOZHAD3900-82-16 09:13:00 Test Item Value Reference Range Interpretation Comments Monocytes (test code = Monocytes) 8.7 2.0-12.0 [facility] CenterUcbrentNRQZAOZVVW4941-12-23 09:13:00 Test Item Value Reference Range Interpretation Comments Basophils (test code = 2.1 See_Comment [Aut omated message] The Basophils) system which ge nerated this result tra nsmitted reference range : <=1.0. The reference r ondina was not used to int erpret this result as normal/abnormal . [facility] CenterDfmtdqjINPEYYKFWZ8086-73-16 09:13:00 Test Item Value Reference Range Interpretation Comments Eosinophils (test code = 6.2 See_Comment [A utomated message] The Eosinophils) system which ge nerated this result tra nsmitted reference range : <=4.0. The reference r ondina was not used to int erpret this result as normal/abnormal . [facility] CenterNjltsriOSQYZZHCWV3765-83-84 09:13:00 Test Item Value Reference Range Interpretation Comments Basophils # (test code 0.1 See_Comment [Aut omated message] The = Basophils #) system which generated this result tra nsmitted reference range : <=0.2. The reference r ondina was not used to int erpret this result as normal/abnormal . [facility] CenterKqgoflwVKWUPPGGMY6126-93-97 09:13:00 Test Item Value Reference Range Interpretation Comments Eosinophils # (test code 0.3 See_Comment [A utomated message] The = Eosinophils #) system whic h generated this result tra nsmitted reference range : <=0.5. The reference r ondina was not used to int erpret this result as normal/abnormal . [facility] CenterRwdmlwoIPTQEFZKOY4742-26-61 09:13:00 Test Item Value Reference Range Interpretation Comments MCV (test code = MCV) 77.7 80.0-94.0 [facility] CenterEwgtixpFXUYPHVSUC7656-17-77 09:13:00 Test Item Value Reference Range Interpretation Comments Hgb (test code = Hgb) 10.5 14.0-18.0 [facility] CenterDlabfcaDIEIARAFRK6441-22-35 09:13:00 Test Item Value Reference Range Interpretation Comments Hct (test code = Hct) 33.2 42.0-54.0 [facility] CenterOpysuenYCMFQQJHFR0891-64-53 09:13:00 Test Item Value Reference Range Interpretation Comments WBC (test code = WBC) 4.7 3.7-10.4 [facility] CenterPfcyyavYDBRPFLPJF0588-35-96 09:13:00 Test Item Value Reference Range Interpretation Comments RBC (test code = RBC) 4.27 4.70-6.10 [facility] CenterDxiciqyZGJVCBLGWE2518-31-89 09:13:00 Test Item Value Reference Range Interpretation Comments MCH (test code = MCH) 24.5 pg 27.0-31.0 [facility] CenterQiuhmljEDCPGBDIZE5662-93-16 09:13:00 Test Item Value Reference Range Interpretation Comments Platelet (test code = Platelet) 267 133-450 [facility] CenterJssvetiVVUPVTDYYW6268-32-63 09:13:00 Test Item Value Reference Range Interpretation Comments MPV (test code = MPV) 7.8 7.4-10.4 [facility] CenterCmcigbaLLGUOMJGJC2258-70-71 09:13:00 Test Item Value Reference Range Interpretation Comments MCHC (test code = MCHC) 31.5 32.0-36.0 [facility] CenterAfjjoqrPRAFOXHUHU0912-36-67 09:13:00 Test Item Value Reference Range Interpretation Comments RDW (test code = RDW) 19.2 11.5-14.5 [facility]2019-06-14 09:13:00 Test Item Value Reference Range Interpretation Comments Bili Indirect Unable to See_Comment [Automated (test code = Bili Calculate message] T he system Indirect) which generated this result transmitted reference range : <=1.0. The reference range was not used to interpret this result as normal/abnormal . [facility]2019-06-14 09:13:00 Test Item Value Reference Range Interpretation Comments Bili Direct (test code no gt See_Comment [Aut omated message] The = Bili Direct) system which generated this result tra nsmitted reference range : <=0.3. The reference r ondina was not used to int erpret this result as cassie l/abnormal. [facility]2019-06-14 09:13:00 Test Item Value Reference Range Interpretation Comments Total Protein (test code = Total 6.9 6.4-8.4 Protein) [facility]2019-06-14 09:13:00 Test Item Value Reference Range Interpretation Comments Albumin Lvl (test code = Albumin Lvl) 3.0 3.5-5.0 [facility]2019-06-14 09:13:00 Test Item Value Reference Range Interpretation Comments Globulin (test code = Globulin) 3.9 2.7-4.2 [facility]2019-06-14 09:13:00 Test Item Value Reference Range Interpretation Comments Alk Phos (test code = Alk Phos) 214 39-136 [facility]2019-06-14 09:13:00 Test Item Value Reference Range Interpretation Comments Bili Total (test code = Bili Total) 0.3 0.2-1.3 [place]1749-06-14 09:13:00 Test Item Value Reference Range Interpretation Comments AST (test code = AST) 207 See_Comment [Auto mated message] The system which ge nerated this result transmit garrett reference range : <=37. The reference range was not used to interpr et this result as cassie l/abnormal. [place]1749-06-14 09:13:00 Test Item Value Reference Range Interpretation Comments A/G Ratio (test code = A/G Ratio) 0.8 1 0.7-1.6 [facility]2019-06-14 09:13:00 Test Item Value Reference Range Interpretation Comments ALT (test code = ALT) 148 See_Comment [Auto mated message] The system which ge nerated this result transmit garrett reference range : <=65. The reference range was not used to interpr et this result as cassie l/abnormal. [facility]aPmukxjgHPJSHCNFMPKD1938-22-42 09:13:00 Test Item Value Reference Range Interpretation Comments AGAP (test code = AGAP) 11.2 10.0-20.0 [facility]aRfacejqQACTLJKSYXCA1166-25-55 09:13:00 Test Item Value Reference Range Interpretation Comments eGFR (test code = eGFR) 85 [facility]aZfbxswnZNFYQCGTSQXU7102-70-60 09:13:00 Test Item Value Reference Range Interpretation Comments Creatinine Lvl (test code = Creatinine 0.96 0.50-1.40 Lvl) [facility]aTwlmepnZBDVPTBCWEIR2496-40-71 09:13:00 Test Item Value Reference Range Interpretation Comments Potassium Lvl (test code = Potassium 4.2 3.5-5.1 Lvl) [facility]aHusxtflRDLISEXSLQJS8137-96-68 09:13:00 Test Item Value Reference Range Interpretation Comments Sodium Lvl (test code = Sodium Lvl) 141 135-145 [facility]aSpymiiiEMIQCRHCYWUA9975-97-38 09:13:00 Test Item Value Reference Range Interpretation Comments Chloride Lvl (test code = Chloride Lvl) 110 95-109 [facility]aWafybnwNHJYEVUNFXAB9950-32-44 09:13:00 Test Item Value Reference Range Interpretation Comments CO2 (test code = CO2) 24 24-32 [facility]aVghrydiIGGCXXWCQAMV8336-46-13 09:13:00 Test Item Value Reference Range Interpretation Comments BUN (test code = BUN) 19 7-22 [facility]aZgeyabwCTIHZRRSIWAO1458-91-61 09:13:00 Test Item Value Reference Range Interpretation Comments Glucose Lvl (test code = Glucose Lvl) 86 70-99 [facility]aXlujshyWFXWDFNGFIJH4064-66-99 09:13:00 Test Item Value Reference Range Interpretation Comments Calcium Lvl (test code = Calcium Lvl) 9.0 8.5-10.5 [facility]AakiayjKCRVJLLZZN8936-18-47 09:13:00 Test Item Value Reference Range Interpretation Comments Microcyte (test code = 1+ *ABN*(08/16/18 Microcyte) 4:13 AM) [facility] CenterYuhrxcaGGIJOAVKPE4501-79-84 09:13:00 Test Item Value Reference Range Interpretation Comments Neutrophils # (test code = Neutrophils 2.7 1.5-8.1 #) [facility] CenterIdcxkthJJPSKHQAYF5566-76-23 09:13:00 Test Item Value Reference Range Interpretation Comments Lymphocytes # (test code = Lymphocytes 1.3 1.0-5.5 #) [facility] CenterLpkdafeGQUJHOOSMY5096-86-59 09:13:00 Test Item Value Reference Range Interpretation Comments Segs (test code = Segs) 56.2 45.0-75.0 [facility] CenterJnczgtdVTHPJLJKVO4660-34-60 09:13:00 Test Item Value Reference Range Interpretation Comments Monocytes # (test code 0.4 See_Comment [Aut omated message] The = Monocytes #) system which generated this result tra nsmitted reference range : <=0.8. The reference r ondina was not used to int erpret this result as normal/abnormal . [facility] CenterGerowwuAKVWUBRIGM3896-73-68 09:13:00 Test Item Value Reference Range Interpretation Comments Lymphocytes (test code = Lymphocytes) 26.8 20.0-40.0 [facility] CenterEwlabxhADPXKGKBGW9249-29-39 09:13:00 Test Item Value Reference Range Interpretation Comments Monocytes (test code = Monocytes) 8.7 2.0-12.0 [facility] CenterKwlurbaNUSYBHUGEZ3881-58-44 09:13:00 Test Item Value Reference Range Interpretation Comments Basophils (test code = 2.1 See_Comment [Aut omated message] The Basophils) system which ge nerated this result tra nsmitted reference range : <=1.0. The reference r ondina was not used to int erpret this result as normal/abnormal . [facility] CenterPiwgusjDMAHWEQTFD3933-29-54 09:13:00 Test Item Value Reference Range Interpretation Comments Eosinophils (test code = 6.2 See_Comment [A utomated message] The Eosinophils) system which ge nerated this result tra nsmitted reference range : <=4.0. The reference r ondina was not used to int erpret this result as normal/abnormal . [facility] CenterMuczppnNIQVQJLZIU8719-47-01 09:13:00 Test Item Value Reference Range Interpretation Comments Basophils # (test code 0.1 See_Comment [Aut omated message] The = Basophils #) system which generated this result tra nsmitted reference range : <=0.2. The reference r ondina was not used to int erpret this result as normal/abnormal . [facility] CenterGbzfjknJFZFPQPAAR5331-91-79 09:13:00 Test Item Value Reference Range Interpretation Comments Eosinophils # (test code 0.3 See_Comment [A utomated message] The = Eosinophils #) system whic h generated this result tra nsmitted reference range : <=0.5. The reference r ondina was not used to int erpret this result as normal/abnormal . [facility] CenterEggeyhdYYLBXVCGFY2615-19-53 09:13:00 Test Item Value Reference Range Interpretation Comments MCV (test code = MCV) 77.7 80.0-94.0 [facility] CenterPnekvqjNYEBFZYDMG6004-26-35 09:13:00 Test Item Value Reference Range Interpretation Comments Hgb (test code = Hgb) 10.5 14.0-18.0 [facility] CenterDympqoeRSQJHAEKET4479-84-66 09:13:00 Test Item Value Reference Range Interpretation Comments Hct (test code = Hct) 33.2 42.0-54.0 [facility] CenterFfkbescGXWJXLHERR4476-25-86 09:13:00 Test Item Value Reference Range Interpretation Comments WBC (test code = WBC) 4.7 3.7-10.4 [facility] CenterVdtruhzGTMUDDNPEM2021-17-56 09:13:00 Test Item Value Reference Range Interpretation Comments RBC (test code = RBC) 4.27 4.70-6.10 [facility] CenterXrisnotAJUYWHRQLM2381-05-35 09:13:00 Test Item Value Reference Range Interpretation Comments MCH (test code = MCH) 24.5 pg 27.0-31.0 [facility] CenterCbwdkwiCNZKYACXJM2302-47-59 09:13:00 Test Item Value Reference Range Interpretation Comments Platelet (test code = Platelet) 267 133-450 [facility] CenterJaojlofNQUDCVDRRV7634-61-04 09:13:00 Test Item Value Reference Range Interpretation Comments MPV (test code = MPV) 7.8 7.4-10.4 [facility] CenterZztofopOIVQJSFBMU3671-96-58 09:13:00 Test Item Value Reference Range Interpretation Comments MCHC (test code = MCHC) 31.5 32.0-36.0 [facility] CenterPnhsfwyPSWWQUEUMN7522-12-52 09:13:00 Test Item Value Reference Range Interpretation Comments RDW (test code = RDW) 19.2 11.5-14.5 [facility]2019-06-14 09:13:00 Test Item Value Reference Range Interpretation Comments Bili Indirect Unable to See_Comment [Automated (test code = Bili Calculate message] T he system Indirect) which generated this result transmitted reference range : <=1.0. The reference range was not used to interpret this result as normal/abnormal . [facility]2019-06-14 09:13:00 Test Item Value Reference Range Interpretation Comments Bili Direct (test code no gt See_Comment [Aut omated message] The = Bili Direct) system which generated this result tra nsmitted reference range : <=0.3. The reference r ondina was not used to int erpret this result as cassie l/abnormal. [facility]2019-06-14 09:13:00 Test Item Value Reference Range Interpretation Comments Total Protein (test code = Total 6.9 6.4-8.4 Protein) [facility]2019-06-14 09:13:00 Test Item Value Reference Range Interpretation Comments Albumin Lvl (test code = Albumin Lvl) 3.0 3.5-5.0 [facility]2019-06-14 09:13:00 Test Item Value Reference Range Interpretation Comments Globulin (test code = Globulin) 3.9 2.7-4.2 [facility]2019-06-14 09:13:00 Test Item Value Reference Range Interpretation Comments Alk Phos (test code = Alk Phos) 214 39-136 [facility]2019-06-14 09:13:00 Test Item Value Reference Range Interpretation Comments Bili Total (test code = Bili Total) 0.3 0.2-1.3 [place] 751749-06-14 09:13:00 Test Item Value Reference Range Interpretation Comments AST (test code = AST) 207 See_Comment [Auto mated message] The system which ge nerated this result transmit garrett reference range : <=37. The reference range was not used to interpr et this result as cassie l/abnormal. [facility]2019-06-14 09:13:00 Test Item Value Reference Range Interpretation Comments A/G Ratio (test code = A/G Ratio) 0.8 1 0.7-1.6 [facility]CHEM NKUTK2189-60-21 09:13:00 Test Item Value Reference Range Interpretation Comments ALT (test code = ALT) 148 See_Comment [Auto mated message] The system which ge nerated this result transmit garrett reference range : <=65. The reference range was not used to interpr et this result as cassie l/abnormal. [facility]aLwjejxyEBNHGWSBDWRK9497-81-89 09:13:00 Test Item Value Reference Range Interpretation Comments AGAP (test code = AGAP) 11.2 10.0-20.0 [facility]aMiezlnkIITRECDUYWKA7570-84-14 09:13:00 Test Item Value Reference Range Interpretation Comments eGFR (test code = eGFR) 85 [facility]aUgpkitoVYXHXXCKMMJQ0286-35-17 09:13:00 Test Item Value Reference Range Interpretation Comments Creatinine Lvl (test code = Creatinine 0.96 0.50-1.40 Lvl) [facility]aEekyoapYIVQWAQHBMJG0942-53-78 09:13:00 Test Item Value Reference Range Interpretation Comments Potassium Lvl (test code = Potassium 4.2 3.5-5.1 Lvl) [facility]aUtsyxymKGJHRZGWPJTU8189-98-50 09:13:00 Test Item Value Reference Range Interpretation Comments Sodium Lvl (test code = Sodium Lvl) 141 135-145 [facility]aYollmutWQIYAVZHOUNK4715-25-23 09:13:00 Test Item Value Reference Range Interpretation Comments Chloride Lvl (test code = Chloride Lvl) 110 95-109 [facility]aCltezbdPDOJCCZKAFGI0011-29-74 09:13:00 Test Item Value Reference Range Interpretation Comments CO2 (test code = CO2) 24 24-32 [facility]aClxjljqVEVBAIQGQNVN0996-01-12 09:13:00 Test Item Value Reference Range Interpretation Comments BUN (test code = BUN) 19 7-22 [facility]aLkzvtkqNCALUJDXERKX0277-75-66 09:13:00 Test Item Value Reference Range Interpretation Comments Glucose Lvl (test code = Glucose Lvl) 86 70-99 [facility]aOdkbofbYASSLPMZZDSP8152-88-24 09:13:00 Test Item Value Reference Range Interpretation Comments Calcium Lvl (test code = Calcium Lvl) 9.0 8.5-10.5 [facility] HospitalZjhwbfgLKVCAKRGQL8066-03-02 09:13:00 Test Item Value Reference Range Interpretation Comments Microcyte (test code = 1+ *ABN*(08/16/18 Microcyte) 4:13 AM) [facility] CenterKissqpxQZPXODKMTA1424-08-10 09:13:00 Test Item Value Reference Range Interpretation Comments Neutrophils # (test code = Neutrophils 2.7 1.5-8.1 #) [facility] CenterSzwramoLOAIIPIBCC7528-56-35 09:13:00 Test Item Value Reference Range Interpretation Comments Lymphocytes # (test code = Lymphocytes 1.3 1.0-5.5 #) [facility] CenterWnydeygPOFGYZFKWE0521-19-21 09:13:00 Test Item Value Reference Range Interpretation Comments Segs (test code = Segs) 56.2 45.0-75.0 [facility] CenterTnxwsmsDHRYLZGOBO9351-02-37 09:13:00 Test Item Value Reference Range Interpretation Comments Monocytes # (test code 0.4 See_Comment [Aut omated message] The = Monocytes #) system which generated this result tra nsmitted reference range : <=0.8. The reference r ondina was not used to int erpret this result as normal/abnormal . [facility] CenterQkrbvywFCIEDWTTNI6716-27-00 09:13:00 Test Item Value Reference Range Interpretation Comments Lymphocytes (test code = Lymphocytes) 26.8 20.0-40.0 [facility] CenterOiravsaBCHWKEIPVG7078-67-69 09:13:00 Test Item Value Reference Range Interpretation Comments Monocytes (test code = Monocytes) 8.7 2.0-12.0 [facility] CenterDdavslvTCPYVGGCYS5534-95-80 09:13:00 Test Item Value Reference Range Interpretation Comments Basophils (test code = 2.1 See_Comment [Aut omated message] The Basophils) system which ge nerated this result tra nsmitted reference range : <=1.0. The reference r ondina was not used to int erpret this result as normal/abnormal . [facility] CenterEfxincvDBSYCHZWOX3121-61-53 09:13:00 Test Item Value Reference Range Interpretation Comments Eosinophils (test code = 6.2 See_Comment [A utomated message] The Eosinophils) system which ge nerated this result tra nsmitted reference range : <=4.0. The reference r ondina was not used to int erpret this result as normal/abnormal . [facility] CenterGyzqucuEJEBYCIHPE7236-45-69 09:13:00 Test Item Value Reference Range Interpretation Comments Basophils # (test code 0.1 See_Comment [Aut omated message] The = Basophils #) system which generated this result tra nsmitted reference range : <=0.2. The reference r ondina was not used to int erpret this result as normal/abnormal . [facility] CenterTurgwqaNNDQJRUYEE0735-11-42 09:13:00 Test Item Value Reference Range Interpretation Comments Eosinophils # (test code 0.3 See_Comment [A utomated message] The = Eosinophils #) system whic h generated this result tra nsmitted reference range : <=0.5. The reference r ondina was not used to int erpret this result as normal/abnormal . [facility] CenterIszrwjcJPQHMRTEPV8613-04-83 09:13:00 Test Item Value Reference Range Interpretation Comments MCV (test code = MCV) 77.7 80.0-94.0 [facility]QpyhjboIEBNAVCPSA7554-63-48 09:13:00 Test Item Value Reference Range Interpretation Comments Hgb (test code = Hgb) 10.5 14.0-18.0 [facility] CenterMfyakjaPJQXOZMQLT2709-10-92 09:13:00 Test Item Value Reference Range Interpretation Comments Hct (test code = Hct) 33.2 42.0-54.0 [facility] CenterRgwcjbjDIEOXZEUBF9911-96-86 09:13:00 Test Item Value Reference Range Interpretation Comments WBC (test code = WBC) 4.7 3.7-10.4 [facility] CenterAsvxjitOAQSKIBNGT9571-13-41 09:13:00 Test Item Value Reference Range Interpretation Comments RBC (test code = RBC) 4.27 4.70-6.10 [facility] CenterDaqtxqvBOJLKOFJSR1088-54-80 09:13:00 Test Item Value Reference Range Interpretation Comments MCH (test code = MCH) 24.5 pg 27.0-31.0 [facility] CenterEdqenscUTJISHMCMB1067-71-57 09:13:00 Test Item Value Reference Range Interpretation Comments Platelet (test code = Platelet) 267 133-450 [facility] CenterAtupdqoUACEYUNSON2220-81-87 09:13:00 Test Item Value Reference Range Interpretation Comments MPV (test code = MPV) 7.8 7.4-10.4 [facility] CenterPtqgoswRWLAJWJZFV5989-59-30 09:13:00 Test Item Value Reference Range Interpretation Comments MCHC (test code = MCHC) 31.5 32.0-36.0 [facility]mxEISCIVTLZC7363-77-06 09:13:00 Test Item Value Reference Range Interpretation Comments RDW (test code = RDW) 19.2 11.5-14.5 [facility] OabytveEZNNCQMKHW9484-58-86 02:46:00 Test Item Value Reference Range Interpretation Comments [facility] HIV 4th GEN (test Negative *NA*(08/15/18 code = CDC HIV 4th 9:46 PM) GEN) [facility] XqdvqfsISJTLBFZNA9144-78-53 02:46:00 Test Item Value Reference Range Interpretation Comments [facility] HIV 4th GEN (test Negative *NA*(08/15/18 code = CDC HIV 4th 9:46 PM) GEN) [facility] HqpogwgEFWEQXAQJS1241-41-82 02:46:00 Test Item Value Reference Range Interpretation Comments [facility] HIV 4th GEN (test Negative *NA*(08/15/18 code = CDC HIV 4th 9:46 PM) GEN) [facility] LtehtqmZTOZEYVYGR5320-06-47 02:46:00 Test Item Value Reference Range Interpretation Comments [facility] HIV 4th GEN (test Negative *NA*(08/15/18 code = CDC HIV 4th 9:46 PM) GEN) [employer] [id number] 02:44:00 Test Item Value Reference Range Interpretation Comments ABO/Rh (test code = ABO/Rh) A POS [facility] [id number] 02:44:00 Test Item Value Reference Range Interpretation Comments Antibody Scrn (test Negative (08/15/18 9:44 code = Antibody Scrn) PM) [facility] [id number] 02:44:00 Test Item Value Reference Range Interpretation Comments ABO/Rh (test code = ABO/Rh) A [facility] [id number] 02:44:00 Test Item Value Reference Range Interpretation Comments Antibody Scrn (test Negative (08/15/18 9:44 code = Antibody Scrn) PM) [facility] [id number] 02:44:00 Test Item Value Reference Range Interpretation Comments ABO/Rh (test code = ABO/Rh) A POS [facility] [id number] 02:44:00 Test Item Value Reference Range Interpretation Comments Antibody Scrn (test Negative (08/15/18 9:44 code = Antibody Scrn) PM) [facility] [id number] 02:44:00 Test Item Value Reference Range Interpretation Comments ABO/Rh (test code = ABO/Rh) A POS [facility] [employer] [id number] 02:44:00 Test Item Value Reference Range Interpretation Comments Antibody Scrn (test Negative (08/15/18 9:44 code = Antibody Scrn) PM) [facility]ARD[facility] [id number] 02:42:00 Test Item Value Reference Range Interpretation Comments Troponin-I (test code no gt See_Comment [Auto mated message] The = Troponin-I) system which g enerated this result transmit garrett reference range : <=0.40. The reference r ondina was not used to interpr et this result as cassie l/abnormal. [facility] [employer] [place] [id number] 02:42:00 Test Item Value Reference Range Interpretation Comments Lipase Lvl (test code = Lipase Lvl) 165 73-393 [facility] [employer] [place] [id number] 02:42:00 Test Item Value Reference Range Interpretation Comments Bili Indirect (test 0.2 See_Comment [Automa garrett message] The code = Bili Indirect) system which generated this result tra nsmitted reference range : <=1.0. The reference r ondina was not used to int erpret this result as normal/abnormal . [facility] [employer]2019-06-14 02:42:00 Test Item Value Reference Range Interpretation Comments Bili Total (test code = Bili Total) 0.3 0.2-1.3 [facility] [employer] [place] [id number] 02:42:00 Test Item Value Reference Range Interpretation Comments Alk Phos (test code = Alk Phos) 203 39-136 [facility] [employer] [place] [id number] 02:42:00 Test Item Value Reference Range Interpretation Comments AST (test code = AST) 194 See_Comment [Auto mated message] The system which ge nerated this result transmit garrett reference range : <=37. The reference range was not used to interpr et this result as cassie l/abnormal. [facility] [employer]2019-06-14 02:42:00 Test Item Value Reference Range Interpretation Comments ALT (test code = ALT) 109 See_Comment [Auto mated message] The system which ge nerated this result transmit garrett reference range : <=65. The reference range was not used to interpr et this result as cassie l/abnormal. [facility]2019-06-14 02:42:00 Test Item Value Reference Range Interpretation Comments Bili Direct (test code 0.1 See_Comment [Aut omated message] The = Bili Direct) system which generated this result tra nsmitted reference range : <=0.3. The reference r ondina was not used to int erpret this result as cassie l/abnormal. [facility]2019-06-14 02:42:00 Test Item Value Reference Range Interpretation Comments Albumin Lvl (test code = Albumin Lvl) 3.0 3.5-5.0 [facility]2019-06-14 02:42:00 Test Item Value Reference Range Interpretation Comments Total Protein (test code = Total 6.9 6.4-8.4 Protein) [facility]2019-06-14 02:42:00 Test Item Value Reference Range Interpretation Comments Globulin (test code = Globulin) 3.9 2.7-4.2 [facility]2019-06-14 02:42:00 Test Item Value Reference Range Interpretation Comments A/G Ratio (test code = A/G Ratio) 0.8 1 0.7-1.6 [facility]2019-06-14 02:42:00 Test Item Value Reference Range Interpretation Comments eGFR (test code = eGFR) 68 [facility]2019-06-14 02:42:00 Test Item Value Reference Range Interpretation Comments Potassium Lvl (test code = Potassium 3.9 3.5-5.1 Lvl) [facility]2019-06-14 02:42:00 Test Item Value Reference Range Interpretation Comments Sodium Lvl (test code = Sodium Lvl) 139 135-145 [facility]2019-06-14 02:42:00 Test Item Value Reference Range Interpretation Comments Calcium Lvl (test code = Calcium Lvl) 8.6 8.5-10.5 [facility]2019-06-14 02:42:00 Test Item Value Reference Range Interpretation Comments CO2 (test code = CO2) 25 24-32 [facility]2019-06-14 02:42:00 Test Item Value Reference Range Interpretation Comments Chloride Lvl (test code = Chloride Lvl) 105 95-109 [facility]2019-06-14 02:42:00 Test Item Value Reference Range Interpretation Comments Creatinine Lvl (test code = Creatinine 1.16 0.50-1.40 Lvl) [facility]2019-06-14 02:42:00 Test Item Value Reference Range Interpretation Comments BUN (test code = BUN) 21 7-22 [facility]2019-06-14 02:42:00 Test Item Value Reference Range Interpretation Comments Glucose Lvl (test code = Glucose Lvl) 88 70-99 [facility]2019-06-14 02:42:00 Test Item Value Reference Range Interpretation Comments AGAP (test code = AGAP) 12.9 10.0-20.0 [facility] CenterZdkrdisOAZHDFMSON8385-17-78 02:42:00 Test Item Value Reference Range Interpretation Comments RDW (test code = RDW) 19.1 11.5-14.5 [facility] CenterYwgxgvxFRHTJDMDZX0917-62-86 02:42:00 Test Item Value Reference Range Interpretation Comments MPV (test code = MPV) 8.0 7.4-10.4 [facility] CenterWcxwvqgGJPCBJXCZJ7704-47-54 02:42:00 Test Item Value Reference Range Interpretation Comments Platelet (test code = Platelet) 259 133-450 [facility] CenterIdenisaGXRRXFGFQR8806-79-88 02:42:00 Test Item Value Reference Range Interpretation Comments MCHC (test code = MCHC) 31.2 32.0-36.0 [facility] CenterPcrskqkUXLYUQLTUC7733-13-34 02:42:00 Test Item Value Reference Range Interpretation Comments Hct (test code = Hct) 33.3 42.0-54.0 [facility] CenterNcdgdmlIUHLWRBTBN8121-45-87 02:42:00 Test Item Value Reference Range Interpretation Comments Hgb (test code = Hgb) 10.4 14.0-18.0 [facility] CenterXopwjuyBYLRJZGSWZ9232-99-70 02:42:00 Test Item Value Reference Range Interpretation Comments RBC (test code = RBC) 4.26 4.70-6.10 [facility] CenterGsbekehIXIDWEOCSW9510-91-35 02:42:00 Test Item Value Reference Range Interpretation Comments MCV (test code = MCV) 78.2 80.0-94.0 [facility] CenterMfmkmqqVCPTFEEAZD3770-39-71 02:42:00 Test Item Value Reference Range Interpretation Comments MCH (test code = MCH) 24.4 pg 27.0-31.0 [facility] CenterTtqajmbHGQDDLDJTI0843-89-83 02:42:00 Test Item Value Reference Range Interpretation Comments WBC (test code = WBC) 6.0 3.7-10.4 [facility] CenterLhtwcgcRMDXNRYXLZ8308-61-47 02:42:00 Test Item Value Reference Range Interpretation Comments Neutrophils # (test code = Neutrophils 4.0 1.5-8.1 #) [facility] CenterKsmivddBHWLUBSZIH8828-69-08 02:42:00 Test Item Value Reference Range Interpretation Comments Lymphocytes # (test code = Lymphocytes 1.3 1.0-5.5 #) [facility] CenterXuirkhcTWSMPCOTWG9359-64-51 02:42:00 Test Item Value Reference Range Interpretation Comments Basophils (test code = 1.4 See_Comment [Aut omated message] The Basophils) system which ge nerated this result tra nsmitted reference range : <=1.0. The reference r ondina was not used to int erpret this result as normal/abnormal . [facility] CenterPefegbdXBHRNFZAQN3468-82-90 02:42:00 Test Item Value Reference Range Interpretation Comments Eosinophils (test code = 3.5 See_Comment [A utomated message] The Eosinophils) system which ge nerated this result tra nsmitted reference range : <=4.0. The reference r ondina was not used to int erpret this result as normal/abnormal . [facility] CenterHifedasIJQWXNNEOU6554-79-31 02:42:00 Test Item Value Reference Range Interpretation Comments Lymphocytes (test code = Lymphocytes) 21.4 20.0-40.0 [facility] CenterLknvnffLJGARIGHCT0773-06-09 02:42:00 Test Item Value Reference Range Interpretation Comments Monocytes (test code = Monocytes) 7.3 2.0-12.0 [facility] CenterBdiaghfXEUISIDHAE7613-24-03 02:42:00 Test Item Value Reference Range Interpretation Comments Basophils # (test code 0.1 See_Comment [Aut omated message] The = Basophils #) system which generated this result tra nsmitted reference range : <=0.2. The reference r ondina was not used to int erpret this result as normal/abnormal . [facility] CenterKvgyzmdPQOADQYJVS1952-42-57 02:42:00 Test Item Value Reference Range Interpretation Comments Microcyte (test code = 1+ *ABN*(08/15/18 Microcyte) 9:42 PM) [facility] CenterYygnmyvNPIOBKGWQA5059-49-86 02:42:00 Test Item Value Reference Range Interpretation Comments Monocytes # (test code 0.4 See_Comment [Aut omated message] The = Monocytes #) system which generated this result tra nsmitted reference range : <=0.8. The reference r ondina was not used to int erpret this result as normal/abnormal . [facility] CenterJelwlgiUASMBGMTBS3461-51-92 02:42:00 Test Item Value Reference Range Interpretation Comments Eosinophils # (test code 0.2 See_Comment [A utomated message] The = Eosinophils #) system whic h generated this result tra nsmitted reference range : <=0.5. The reference r ondina was not used to int erpret this result as normal/abnormal . [facility] CenterFcduejbMWYEMQWEZP7814-56-65 02:42:00 Test Item Value Reference Range Interpretation Comments Segs (test code = Segs) 66.4 45.0-75.0 [facility] CenterGrnrnpeZIKNXPJQAK5656-18-99 02:42:00 Test Item Value Reference Range Interpretation Comments PT (test code = PT) 13.5 s 12.0-14.7 [facility] CenterBloxcwcVUSMSGVNNF5473-11-30 02:42:00 Test Item Value Reference Range Interpretation Comments PTT (test code = PTT) 28.8 s 22.9-35.8 [facility] CenterUgciyxkRNVJTLXIHT3781-48-31 02:42:00 Test Item Value Reference Range Interpretation Comments INR (test code = INR) 1.05 1 0.85-1.17 [facility] ZYAYXCG8819-36-23 02:42:00 Test Item Value Reference Range Interpretation Comments Troponin-I (test code no gt See_Comment [Auto mated message] The = Troponin-I) system which g enerated this result transmit garrett reference range : <=0.40. The reference r ondina was not used to interpr et this result as cassie l/abnormal. [facility] HospitalConcept In[facility] [id number] 02:42:00 Test Item Value Reference Range Interpretation Comments Lipase Lvl (test code = Lipase Lvl) 165 73-393 [place] 751749-06-14 02:42:00 Test Item Value Reference Range Interpretation Comments Bili Indirect (test 0.2 See_Comment [Automa garrett message] The code = Bili Indirect) system which generated this result tra nsmitted reference range : <=1.0. The reference r ondina was not used to int erpret this result as normal/abnormal . [facility]2019-06-14 02:42:00 Test Item Value Reference Range Interpretation Comments Bili Total (test code = Bili Total) 0.3 0.2-1.3 [facility]2019-06-14 02:42:00 Test Item Value Reference Range Interpretation Comments Alk Phos (test code = Alk Phos) 203 39-136 [facility]2019-06-14 02:42:00 Test Item Value Reference Range Interpretation Comments AST (test code = AST) 194 See_Comment [Auto mated message] The system which ge nerated this result transmit garrett reference range : <=37. The reference range was not used to interpr et this result as cassie l/abnormal. [facility]2019-06-14 02:42:00 Test Item Value Reference Range Interpretation Comments ALT (test code = ALT) 109 See_Comment [Auto mated message] The system which ge nerated this result transmit garrett reference range : <=65. The reference range was not used to interpr et this result as cassie l/abnormal. [facility]2019-06-14 02:42:00 Test Item Value Reference Range Interpretation Comments Bili Direct (test code 0.1 See_Comment [Aut omated message] The = Bili Direct) system which generated this result tra nsmitted reference range : <=0.3. The reference r ondina was not used to int erpret this result as cassie l/abnormal. [facility]2019-06-14 02:42:00 Test Item Value Reference Range Interpretation Comments Albumin Lvl (test code = Albumin Lvl) 3.0 3.5-5.0 [place] 751749-06-14 02:42:00 Test Item Value Reference Range Interpretation Comments Total Protein (test code = Total 6.9 6.4-8.4 Protein) [facility]2019-06-14 02:42:00 Test Item Value Reference Range Interpretation Comments Globulin (test code = Globulin) 3.9 2.7-4.2 [facility]2019-06-14 02:42:00 Test Item Value Reference Range Interpretation Comments A/G Ratio (test code = A/G Ratio) 0.8 1 0.7-1.6 [facility]2019-06-14 02:42:00 Test Item Value Reference Range Interpretation Comments eGFR (test code = eGFR) 68 [facility]2019-06-14 02:42:00 Test Item Value Reference Range Interpretation Comments Potassium Lvl (test code = Potassium 3.9 3.5-5.1 Lvl) [facility]2019-06-14 02:42:00 Test Item Value Reference Range Interpretation Comments Sodium Lvl (test code = Sodium Lvl) 139 135-145 [facility]2019-06-14 02:42:00 Test Item Value Reference Range Interpretation Comments Calcium Lvl (test code = Calcium Lvl) 8.6 8.5-10.5 [facility]2019-06-14 02:42:00 Test Item Value Reference Range Interpretation Comments CO2 (test code = CO2) 25 24-32 [facility]2019-06-14 02:42:00 Test Item Value Reference Range Interpretation Comments Chloride Lvl (test code = Chloride Lvl) 105 95-109 [facility]2019-06-14 02:42:00 Test Item Value Reference Range Interpretation Comments Creatinine Lvl (test code = Creatinine 1.16 0.50-1.40 Lvl) [facility]2019-06-14 02:42:00 Test Item Value Reference Range Interpretation Comments BUN (test code = BUN) 21 7-22 [facility]2019-06-14 02:42:00 Test Item Value Reference Range Interpretation Comments Glucose Lvl (test code = Glucose Lvl) 88 70-99 [facility]2019-06-14 02:42:00 Test Item Value Reference Range Interpretation Comments AGAP (test code = AGAP) 12.9 10.0-20.0 [facility] CenterIbwwcyxSLEUVKDKLF4819-54-36 02:42:00 Test Item Value Reference Range Interpretation Comments RDW (test code = RDW) 19.1 11.5-14.5 [facility] CenterSqmbzelETZNMAQRGV9236-82-64 02:42:00 Test Item Value Reference Range Interpretation Comments MPV (test code = MPV) 8.0 7.4-10.4 [facility] CenterFnpzifuPNRGONEITE3828-41-70 02:42:00 Test Item Value Reference Range Interpretation Comments Platelet (test code = Platelet) 259 133-450 [facility] CenterRzayibyEENZUJHMMD6792-48-47 02:42:00 Test Item Value Reference Range Interpretation Comments MCHC (test code = MCHC) 31.2 32.0-36.0 [facility] CenterXmeaqgiYWUAMPTFFM4395-17-49 02:42:00 Test Item Value Reference Range Interpretation Comments Hct (test code = Hct) 33.3 42.0-54.0 [facility] CenterZthcmrnVJWULBFMXJ0997-90-14 02:42:00 Test Item Value Reference Range Interpretation Comments Hgb (test code = Hgb) 10.4 14.0-18.0 [facility] CenterDjsupyeRAMREIRAJD8551-91-50 02:42:00 Test Item Value Reference Range Interpretation Comments RBC (test code = RBC) 4.26 4.70-6.10 [facility] CenterEujlowoHIHHHJGWVR0084-59-77 02:42:00 Test Item Value Reference Range Interpretation Comments MCV (test code = MCV) 78.2 80.0-94.0 [facility] CenterFesepshKNEXVJZERT0753-60-20 02:42:00 Test Item Value Reference Range Interpretation Comments MCH (test code = MCH) 24.4 pg 27.0-31.0 [facility] CenterWenggriAXZHNVVIQV8653-92-02 02:42:00 Test Item Value Reference Range Interpretation Comments WBC (test code = WBC) 6.0 3.7-10.4 [facility] CenterGhcwvfxQSREYUSTAW9038-27-39 02:42:00 Test Item Value Reference Range Interpretation Comments Neutrophils # (test code = Neutrophils 4.0 1.5-8.1 #) [facility] CenterBhyzacoGTQPBVCJUH8815-42-91 02:42:00 Test Item Value Reference Range Interpretation Comments Lymphocytes # (test code = Lymphocytes 1.3 1.0-5.5 #) [facility] CenterQsyojddZUVVCHTPMX6222-50-70 02:42:00 Test Item Value Reference Range Interpretation Comments Basophils (test code = 1.4 See_Comment [Aut omated message] The Basophils) system which ge nerated this result tra nsmitted reference range : <=1.0. The reference r ondina was not used to int erpret this result as normal/abnormal . [facility] CenterVfqcsynLTXSNTRZUJ6124-90-13 02:42:00 Test Item Value Reference Range Interpretation Comments Eosinophils (test code = 3.5 See_Comment [A utomated message] The Eosinophils) system which ge nerated this result tra nsmitted reference range : <=4.0. The reference r ondina was not used to int erpret this result as normal/abnormal . [facility] CenterLdzuuliAAYZRHDSEF6493-08-79 02:42:00 Test Item Value Reference Range Interpretation Comments Lymphocytes (test code = Lymphocytes) 21.4 20.0-40.0 [facility] CenterLkkbxlbSPARLKUBCW5965-90-32 02:42:00 Test Item Value Reference Range Interpretation Comments Monocytes (test code = Monocytes) 7.3 2.0-12.0 [facility] CenterJwimfjwIXNXABHYSO7987-26-33 02:42:00 Test Item Value Reference Range Interpretation Comments Basophils # (test code 0.1 See_Comment [Aut omated message] The = Basophils #) system which generated this result tra nsmitted reference range : <=0.2. The reference r ondina was not used to int erpret this result as normal/abnormal . [facility] CenterXgrmemgJXXEYQFUNH8099-40-93 02:42:00 Test Item Value Reference Range Interpretation Comments Microcyte (test code = 1+ *ABN*(08/15/18 Microcyte) 9:42 PM) [facility] CenterGzpvutgSEEUSITDJZ5293-13-78 02:42:00 Test Item Value Reference Range Interpretation Comments Monocytes # (test code 0.4 See_Comment [Aut omated message] The = Monocytes #) system which generated this result tra nsmitted reference range : <=0.8. The reference r ondina was not used to int erpret this result as normal/abnormal . [facility] CenterHdzfnreTBZSLKRAPS0398-90-37 02:42:00 Test Item Value Reference Range Interpretation Comments Eosinophils # (test code 0.2 See_Comment [A utomated message] The = Eosinophils #) system whic h generated this result tra nsmitted reference range : <=0.5. The reference r ondina was not used to int erpret this result as normal/abnormal . [facility] CenterWtzfrxkYQPOAUWGNW1650-25-84 02:42:00 Test Item Value Reference Range Interpretation Comments Segs (test code = Segs) 66.4 45.0-75.0 [facility]LrhlanzUGTQAZEJMH6864-26-99 02:42:00 Test Item Value Reference Range Interpretation Comments PT (test code = PT) 13.5 s 12.0-14.7 [facility]LlxiuodFRBIOWETJL4055-65-76 02:42:00 Test Item Value Reference Range Interpretation Comments PTT (test code = PTT) 28.8 s 22.9-35.8 [facility] HospitalVnsauixETAFUNGUTD2992-65-24 02:42:00 Test Item Value Reference Range Interpretation Comments INR (test code = INR) 1.05 1 0.85-1.17 [facility] PFNFVVR3792-06-74 02:42:00 Test Item Value Reference Range Interpretation Comments Troponin-I (test code no gt See_Comment [Auto mated message] The = Troponin-I) system which g enerated this result transmit garrett reference range : <=0.40. The reference r ondina was not used to interpr et this result as cassie l/abnormal. [facility] HospitalConcept [facility] [id number] 02:42:00 Test Item Value Reference Range Interpretation Comments Lipase Lvl (test code = Lipase Lvl) 165 73-393 [facility]2019-06-14 02:42:00 Test Item Value Reference Range Interpretation Comments Bili Indirect (test 0.2 See_Comment [Automa garrett message] The code = Bili Indirect) system which generated this result tra nsmitted reference range : <=1.0. The reference r ondina was not used to int erpret this result as normal/abnormal . [facility] HospitalCon[facility] [id number] 02:42:00 Test Item Value Reference Range Interpretation Comments Bili Total (test code = Bili Total) 0.3 0.2-1.3 [facility]2019-06-14 02:42:00 Test Item Value Reference Range Interpretation Comments Alk Phos (test code = Alk Phos) 203 39-136 [facility]2019-06-14 02:42:00 Test Item Value Reference Range Interpretation Comments AST (test code = AST) 194 See_Comment [Auto mated message] The system which ge nerated this result transmit garrett reference range : <=37. The reference range was not used to interpr et this result as cassie l/abnormal. [facility] [facility]2019-06-14 02:42:00 Test Item Value Reference Range Interpretation Comments ALT (test code = ALT) 109 See_Comment [Auto mated message] The system which ge nerated this result transmit garrett reference range : <=65. The reference range was not used to interpr et this result as cassie l/abnormal. [facility]2019-06-14 02:42:00 Test Item Value Reference Range Interpretation Comments Bili Direct (test code 0.1 See_Comment [Aut omated message] The = Bili Direct) system which generated this result tra nsmitted reference range : <=0.3. The reference r ondina was not used to int erpret this result as cassie l/abnormal. [facility]2019-06-14 02:42:00 Test Item Value Reference Range Interpretation Comments Albumin Lvl (test code = Albumin Lvl) 3.0 3.5-5.0 [facility]2019-06-14 02:42:00 Test Item Value Reference Range Interpretation Comments Total Protein (test code = Total 6.9 6.4-8.4 Protein) [facility]2019-06-14 02:42:00 Test Item Value Reference Range Interpretation Comments Globulin (test code = Globulin) 3.9 2.7-4.2 [facility]2019-06-14 02:42:00 Test Item Value Reference Range Interpretation Comments A/G Ratio (test code = A/G Ratio) 0.8 1 0.7-1.6 [facility]2019-06-14 02:42:00 Test Item Value Reference Range Interpretation Comments eGFR (test code = eGFR) 68 [facility]2019-06-14 02:42:00 Test Item Value Reference Range Interpretation Comments Potassium Lvl (test code = Potassium 3.9 3.5-5.1 Lvl) [facility]2019-06-14 02:42:00 Test Item Value Reference Range Interpretation Comments Sodium Lvl (test code = Sodium Lvl) 139 135-145 [facility]2019-06-14 02:42:00 Test Item Value Reference Range Interpretation Comments Calcium Lvl (test code = Calcium Lvl) 8.6 8.5-10.5 [facility]2019-06-14 02:42:00 Test Item Value Reference Range Interpretation Comments CO2 (test code = CO2) 25 24-32 [facility]2019-06-14 02:42:00 Test Item Value Reference Range Interpretation Comments Chloride Lvl (test code = Chloride Lvl) 105 95-109 [facility]2019-06-14 02:42:00 Test Item Value Reference Range Interpretation Comments Creatinine Lvl (test code = Creatinine 1.16 0.50-1.40 Lvl) [facility]2019-06-14 02:42:00 Test Item Value Reference Range Interpretation Comments BUN (test code = BUN) 21 7-22 [facility]2019-06-14 02:42:00 Test Item Value Reference Range Interpretation Comments Glucose Lvl (test code = Glucose Lvl) 88 70-99 [facility]2019-06-14 02:42:00 Test Item Value Reference Range Interpretation Comments AGAP (test code = AGAP) 12.9 10.0-20.0 [facility]AezbutvNJZCHHWZAT0903-42-51 02:42:00 Test Item Value Reference Range Interpretation Comments RDW (test code = RDW) 19.1 11.5-14.5 [facility] CenterNhtxiauGHDMOOSLJC9774-12-20 02:42:00 Test Item Value Reference Range Interpretation Comments MPV (test code = MPV) 8.0 7.4-10.4 [facility] CenterGpcqfqcGJMQXHDMYX8027-30-56 02:42:00 Test Item Value Reference Range Interpretation Comments Platelet (test code = Platelet) 259 133-450 [facility] CenterPdaznjeKTPFODLGVY1742-93-10 02:42:00 Test Item Value Reference Range Interpretation Comments MCHC (test code = MCHC) 31.2 32.0-36.0 [facility] CenterSfynzvlLZAFILXJUO2302-93-14 02:42:00 Test Item Value Reference Range Interpretation Comments Hct (test code = Hct) 33.3 42.0-54.0 [facility] CenterVwizjfkVCJKXADLYR2080-73-98 02:42:00 Test Item Value Reference Range Interpretation Comments Hgb (test code = Hgb) 10.4 14.0-18.0 [facility] CenterGzmoesbZHVEWODGRT8756-98-22 02:42:00 Test Item Value Reference Range Interpretation Comments RBC (test code = RBC) 4.26 4.70-6.10 [facility] CenterRjnpjrdANVMKDQNEB5223-50-57 02:42:00 Test Item Value Reference Range Interpretation Comments MCV (test code = MCV) 78.2 80.0-94.0 [facility] CenterHirztpfXMZSPOTCBU3314-14-40 02:42:00 Test Item Value Reference Range Interpretation Comments MCH (test code = MCH) 24.4 pg 27.0-31.0 [facility] CenterZahixvtITKUGXUENA5637-35-16 02:42:00 Test Item Value Reference Range Interpretation Comments WBC (test code = WBC) 6.0 3.7-10.4 [facility] CenterXkefrwzWWYHLGKUZH2261-50-74 02:42:00 Test Item Value Reference Range Interpretation Comments Neutrophils # (test code = Neutrophils 4.0 1.5-8.1 #) [facility] CenterQposxbfSIMFHTZKXT6938-97-36 02:42:00 Test Item Value Reference Range Interpretation Comments Lymphocytes # (test code = Lymphocytes 1.3 1.0-5.5 #) [facility] CenterSojumjaHNVSTWXMYP0592-47-59 02:42:00 Test Item Value Reference Range Interpretation Comments Basophils (test code = 1.4 See_Comment [Aut omated message] The Basophils) system which ge nerated this result tra nsmitted reference range : <=1.0. The reference r ondina was not used to int erpret this result as normal/abnormal . [facility] CenterXqeshqdRYHQTTMJAV1440-43-60 02:42:00 Test Item Value Reference Range Interpretation Comments Eosinophils (test code = 3.5 See_Comment [A utomated message] The Eosinophils) system which ge nerated this result tra nsmitted reference range : <=4.0. The reference r ondina was not used to int erpret this result as normal/abnormal . [facility] CenterJbravgzUISSHTCVVX5244-05-10 02:42:00 Test Item Value Reference Range Interpretation Comments Lymphocytes (test code = Lymphocytes) 21.4 20.0-40.0 [facility] CenterBbbcdugFWBHCAEFOK9951-92-26 02:42:00 Test Item Value Reference Range Interpretation Comments Monocytes (test code = Monocytes) 7.3 2.0-12.0 [facility] CenterLsxmtnoNIIJNDYEJQ2283-99-29 02:42:00 Test Item Value Reference Range Interpretation Comments Basophils # (test code 0.1 See_Comment [Aut omated message] The = Basophils #) system which generated this result tra nsmitted reference range : <=0.2. The reference r ondina was not used to int erpret this result as normal/abnormal . [facility] CenterPqqexieXNZCORIAJM6689-18-74 02:42:00 Test Item Value Reference Range Interpretation Comments Microcyte (test code = 1+ *ABN*(08/15/18 Microcyte) 9:42 PM) [facility] CenterFpgyyilSNSOANKBFR7610-79-99 02:42:00 Test Item Value Reference Range Interpretation Comments Monocytes # (test code 0.4 See_Comment [Aut omated message] The = Monocytes #) system which generated this result tra nsmitted reference range : <=0.8. The reference r ondina was not used to int erpret this result as normal/abnormal . [facility] CenterItmpcpnKAFREMLEEE5232-65-24 02:42:00 Test Item Value Reference Range Interpretation Comments Eosinophils # (test code 0.2 See_Comment [A utomated message] The = Eosinophils #) system whic h generated this result tra nsmitted reference range : <=0.5. The reference r ondina was not used to int erpret this result as normal/abnormal . [facility] CenterTawgluqKLIIBREGSG5688-15-64 02:42:00 Test Item Value Reference Range Interpretation Comments Segs (test code = Segs) 66.4 45.0-75.0 [facility] CenterBdkflyzCJCTDLMBXV8143-70-78 02:42:00 Test Item Value Reference Range Interpretation Comments PT (test code = PT) 13.5 s 12.0-14.7 [facility] CenterJqlxoqwNNISSOIZNQ6480-87-99 02:42:00 Test Item Value Reference Range Interpretation Comments PTT (test code = PTT) 28.8 s 22.9-35.8 [facility] CenterCgzybxkVPKIMWIYTL7718-42-43 02:42:00 Test Item Value Reference Range Interpretation Comments INR (test code = INR) 1.05 1 0.85-1.17 [facility]ARD[facility] SDFBQRR0258-09-26 02:42:00 Test Item Value Reference Range Interpretation Comments Troponin-I (test code no gt See_Comment [Auto mated message] The = Troponin-I) system which g enerated this result transmit garrett reference range : <=0.40. The reference r ondina was not used to interpr et this result as cassie l/abnormal. [facility]2019-06-14 02:42:00 Test Item Value Reference Range Interpretation Comments Lipase Lvl (test code = Lipase Lvl) 165 73-393 [facility]2019-06-14 02:42:00 Test Item Value Reference Range Interpretation Comments Bili Indirect (test 0.2 See_Comment [Automa garrett message] The code = Bili Indirect) system which generated this result tra nsmitted reference range : <=1.0. The reference r ondina was not used to int erpret this result as normal/abnormal . [facility]2019-06-14 02:42:00 Test Item Value Reference Range Interpretation Comments Bili Total (test code = Bili Total) 0.3 0.2-1.3 [facility]2019-06-14 02:42:00 Test Item Value Reference Range Interpretation Comments Alk Phos (test code = Alk Phos) 203 39-136 [facility]2019-06-14 02:42:00 Test Item Value Reference Range Interpretation Comments AST (test code = AST) 194 See_Comment [Auto mated message] The system which ge nerated this result transmit garrett reference range : <=37. The reference range was not used to interpr et this result as cassie l/abnormal. [facility]2019-06-14 02:42:00 Test Item Value Reference Range Interpretation Comments ALT (test code = ALT) 109 See_Comment [Auto mated message] The system which ge nerated this result transmit garrett reference range : <=65. The reference range was not used to interpr et this result as cassie l/abnormal. [facility]2019-06-14 02:42:00 Test Item Value Reference Range Interpretation Comments Bili Direct (test code 0.1 See_Comment [Aut omated message] The = Bili Direct) system which generated this result tra nsmitted reference range : <=0.3. The reference r ondina was not used to int erpret this result as cassie l/abnormal. [place]1749-06-14 02:42:00 Test Item Value Reference Range Interpretation Comments Albumin Lvl (test code = Albumin Lvl) 3.0 3.5-5.0 [facility]2019-06-14 02:42:00 Test Item Value Reference Range Interpretation Comments Total Protein (test code = Total 6.9 6.4-8.4 Protein) [facility]2019-06-14 02:42:00 Test Item Value Reference Range Interpretation Comments Globulin (test code = Globulin) 3.9 2.7-4.2 [facility]2019-06-14 02:42:00 Test Item Value Reference Range Interpretation Comments A/G Ratio (test code = A/G Ratio) 0.8 1 0.7-1.6 [facility]2019-06-14 02:42:00 Test Item Value Reference Range Interpretation Comments eGFR (test code = eGFR) 68 [facility]2019-06-14 02:42:00 Test Item Value Reference Range Interpretation Comments Potassium Lvl (test code = Potassium 3.9 3.5-5.1 Lvl) [facility]2019-06-14 02:42:00 Test Item Value Reference Range Interpretation Comments Sodium Lvl (test code = Sodium Lvl) 139 135-145 [facility]2019-06-14 02:42:00 Test Item Value Reference Range Interpretation Comments Calcium Lvl (test code = Calcium Lvl) 8.6 8.5-10.5 [facility]2019-06-14 02:42:00 Test Item Value Reference Range Interpretation Comments CO2 (test code = CO2) 25 24-32 [facility]2019-06-14 02:42:00 Test Item Value Reference Range Interpretation Comments Chloride Lvl (test code = Chloride Lvl) 105 95-109 [facility]2019-06-14 02:42:00 Test Item Value Reference Range Interpretation Comments Creatinine Lvl (test code = Creatinine 1.16 0.50-1.40 Lvl) [facility]2019-06-14 02:42:00 Test Item Value Reference Range Interpretation Comments BUN (test code = BUN) 21 7-22 [facility]2019-06-14 02:42:00 Test Item Value Reference Range Interpretation Comments Glucose Lvl (test code = Glucose Lvl) 88 70-99 [facility]2019-06-14 02:42:00 Test Item Value Reference Range Interpretation Comments AGAP (test code = AGAP) 12.9 10.0-20.0 [facility] CenterYyyzzzdFYFGLUSYHI9946-07-24 02:42:00 Test Item Value Reference Range Interpretation Comments RDW (test code = RDW) 19.1 11.5-14.5 [facility] CenterOprrpuoECDTPDWYDP4190-68-88 02:42:00 Test Item Value Reference Range Interpretation Comments MPV (test code = MPV) 8.0 7.4-10.4 [facility] CenterByhirxlTQXEKOVYMI7410-04-43 02:42:00 Test Item Value Reference Range Interpretation Comments Platelet (test code = Platelet) 259 133-450 [facility] CenterCjzfqpoLUAILFFDNX9874-27-26 02:42:00 Test Item Value Reference Range Interpretation Comments MCHC (test code = MCHC) 31.2 32.0-36.0 [facility] CenterIcgaakvSKKTURUKBO0497-14-78 02:42:00 Test Item Value Reference Range Interpretation Comments Hct (test code = Hct) 33.3 42.0-54.0 [facility] CenterSrbyotuMBZKZCXTNX3927-06-22 02:42:00 Test Item Value Reference Range Interpretation Comments Hgb (test code = Hgb) 10.4 14.0-18.0 [facility] CenterLanmxetRISZTPFBFL0323-19-62 02:42:00 Test Item Value Reference Range Interpretation Comments RBC (test code = RBC) 4.26 4.70-6.10 [facility] CenterLycsoqaWYGPBEWKVF9838-76-87 02:42:00 Test Item Value Reference Range Interpretation Comments MCV (test code = MCV) 78.2 80.0-94.0 [facility] CenterZonfsxfYJVRJTTTOI3298-14-96 02:42:00 Test Item Value Reference Range Interpretation Comments MCH (test code = MCH) 24.4 pg 27.0-31.0 [facility] CenterQbbdhbkVUELCMGKVB4236-88-58 02:42:00 Test Item Value Reference Range Interpretation Comments WBC (test code = WBC) 6.0 3.7-10.4 [facility] CenterKnlzgqoYMWCUTSYJM8571-34-23 02:42:00 Test Item Value Reference Range Interpretation Comments Neutrophils # (test code = Neutrophils 4.0 1.5-8.1 #) [facility] CenterEchlvaxXUDZLMGYEG2412-73-41 02:42:00 Test Item Value Reference Range Interpretation Comments Lymphocytes # (test code = Lymphocytes 1.3 1.0-5.5 #) [facility] CenterLgrdmdrHGVTCSQARA5381-57-79 02:42:00 Test Item Value Reference Range Interpretation Comments Basophils (test code = 1.4 See_Comment [Aut omated message] The Basophils) system which ge nerated this result tra nsmitted reference range : <=1.0. The reference r ondina was not used to int erpret this result as normal/abnormal . [facility] CenterPnpucfqEADADJXFIN0294-53-97 02:42:00 Test Item Value Reference Range Interpretation Comments Eosinophils (test code = 3.5 See_Comment [A utomated message] The Eosinophils) system which ge nerated this result tra nsmitted reference range : <=4.0. The reference r ondina was not used to int erpret this result as normal/abnormal . [facility] CenterYucvmxsEWXGBZFAWA7997-31-06 02:42:00 Test Item Value Reference Range Interpretation Comments Lymphocytes (test code = Lymphocytes) 21.4 20.0-40.0 [facility] CenterGpjpycvVJMDOCRQMB6070-40-44 02:42:00 Test Item Value Reference Range Interpretation Comments Monocytes (test code = Monocytes) 7.3 2.0-12.0 [facility] CenterKoulerwYJMFLCWZMD2196-11-90 02:42:00 Test Item Value Reference Range Interpretation Comments Basophils # (test code 0.1 See_Comment [Aut omated message] The = Basophils #) system which generated this result tra nsmitted reference range : <=0.2. The reference r ondina was not used to int erpret this result as normal/abnormal . [facility] CenterEzwdozbLZIZRYKSEK2536-83-05 02:42:00 Test Item Value Reference Range Interpretation Comments Microcyte (test code = 1+ *ABN*(08/15/18 Microcyte) 9:42 PM) [facility] CenterGnvipqnLHUQTLPYWK7149-33-30 02:42:00 Test Item Value Reference Range Interpretation Comments Monocytes # (test code 0.4 See_Comment [Aut omated message] The = Monocytes #) system which generated this result tra nsmitted reference range : <=0.8. The reference r ondina was not used to int erpret this result as normal/abnormal . [facility] CenterSbgbbxwQORQBXJQKN7498-88-43 02:42:00 Test Item Value Reference Range Interpretation Comments Eosinophils # (test code 0.2 See_Comment [A utomated message] The = Eosinophils #) system whic h generated this result tra nsmitted reference range : <=0.5. The reference r ondina was not used to int erpret this result as normal/abnormal . [facility] CenterVcfxqymSRVHAYIYCT7558-31-64 02:42:00 Test Item Value Reference Range Interpretation Comments Segs (test code = Segs) 66.4 45.0-75.0 [facility] CenterTrpwyaeSZOKGYNMPY8975-43-32 02:42:00 Test Item Value Reference Range Interpretation Comments PT (test code = PT) 13.5 s 12.0-14.7 [facility]EscgafdHFGKRQNARW5801-79-31 02:42:00 Test Item Value Reference Range Interpretation Comments PTT (test code = PTT) 28.8 s 22.9-35.8 [facility] CenterGkozcgqASJEBPHOZZ3900-79-06 02:42:00 Test Item Value Reference Range Interpretation Comments INR (test code = INR) 1.05 1 0.85-1.17 [facility]Culture: Trhhcsbmc7458-91-12 20:00:00 Test Item Value Reference Range Interpretation Comments Culture: Anaerobic (test Culture In Progress code = Culture: Anaerobic) [facility] Stain Fohaup9783-15-29 20:00:00 Test Item Value Reference Range Interpretation Comments Gram Stain Report Rare WBC's No Organisms (test code = Gram Seen Stain Report) [facility]Culture: Aspirate/Body Fluid/Nvdilr6583-65-45 20:00:00 Test Item Value Reference Range Interpretation Comments Culture: Aspirate/Body No Growth; Holding Fluid/Tissue (test code = Culture: Aspirate/Body Fluid/Tissue) [facility] HospitalCulture: Yvvnovihh3595-05-77 20:00:00 Test Item Value Reference Range Interpretation Comments Culture: Anaerobic (test Culture In Progress code = Culture: Anaerobic) [facility] Stain Ntgryg0084-89-11 20:00:00 Test Item Value Reference Range Interpretation Comments Gram Stain Report Rare WBC's No Organisms (test code = Gram Seen Stain Report) [facility]ir[facility]/Body Fluid/Grmfky7946-01-67 20:00:00 Test Item Value Reference Range Interpretation Comments Culture: Aspirate/Body No Growth; Holding Fluid/Tissue (test code = Culture: Aspirate/Body Fluid/Tissue) [facility] HospitalCulture: Axcqjikoq1625-78-56 20:00:00 Test Item Value Reference Range Interpretation Comments Culture: Anaerobic (test Culture In Progress code = Culture: Anaerobic) [facility]annGram Stain Csgyjq5585-47-89 20:00:00 Test Item Value Reference Range Interpretation Comments Gram Stain Report Rare WBC's No Organisms (test code = Gram Seen Stain Report) [facility]annCulture: Aspirate/Body Fluid/Gzgbev7972-59-28 20:00:00 Test Item Value Reference Range Interpretation Comments Culture: Aspirate/Body No Growth; Holding Fluid/Tissue (test code = Culture: Aspirate/Body Fluid/Tissue) [facility]annCulture: Varxoemlr0123-97-16 20:00:00 Test Item Value Reference Range Interpretation Comments Culture: Anaerobic (test Culture In Progress code = Culture: Anaerobic) [facility] HospitalG[facility] Stain Ptliyf8082-09-61 20:00:00 Test Item Value Reference Range Interpretation Comments Gram Stain Report Rare WBC's No Organisms (test code = Gram Seen Stain Report) [facility]annlture: Aspirate/Body Fluid/Dqirdp4576-18-89 20:00:00 Test Item Value Reference Range Interpretation Comments Culture: Aspirate/Body No Growth; Holding Fluid/Tissue (test code = Culture: Aspirate/Body Fluid/Tissue) [facility]annCulture: Lgfvxyztf8935-09-72 15:00:00 Test Item Value Reference Range Interpretation Comments Culture: Anaerobic No Anaerobes Isolated (test code = Culture: After 2 Days Anaerobic) [facility] Stain Ljuagl6175-43-86 15:00:00 Test Item Value Reference Range Interpretation Comments Gram Stain Report No Wbc'S Or Organisms (test code = Gram Seen Stain Report) [facility]annCulture: Aspirate/Body Fluid/Gjqhoi5868-69-08 15:00:00 Test Item Value Reference Range Interpretation Comments Culture: 48 Hour Report - No Aspirate/Body Growth, Holding Fluid/Tissue (test code = Culture: Aspirate/Body Fluid/Tissue) [facility]Culture: Jydgscutd4632-02-21 15:00:00 Test Item Value Reference Range Interpretation Comments Culture: Anaerobic No Anaerobes Isolated (test code = Culture: After 2 Days Anaerobic) [facility] HospitalG[facility] Stain Wgubas5528-75-06 15:00:00 Test Item Value Reference Range Interpretation Comments Gram Stain Report No Wbc'S Or Organisms (test code = Gram Seen Stain Report) [facility]annCulture: Aspirate/Body Fluid/Xzfshy3965-47-14 15:00:00 Test Item Value Reference Range Interpretation Comments Culture: 48 Hour Report - No Aspirate/Body Growth, Holding Fluid/Tissue (test code = Culture: Aspirate/Body Fluid/Tissue) [facility] Ypnjvvxyv6697-89-99 15:00:00 Test Item Value Reference Range Interpretation Comments Culture: Anaerobic No Anaerobes Isolated (test code = Culture: After 2 Days Anaerobic) [facility] HospitalGram Stain Juxoad2007-41-27 15:00:00 Test Item Value Reference Range Interpretation Comments Gram Stain Report No Wbc'S Or Organisms (test code = Gram Seen Stain Report) [facility]: Aspirate/Body Fluid/Skiysl4100-04-64 15:00:00 Test Item Value Reference Range Interpretation Comments Culture: 48 Hour Report - No Aspirate/Body Growth, Holding Fluid/Tissue (test code = Culture: Aspirate/Body Fluid/Tissue) [facility]: Anbdoqydy2215-08-33 15:00:00 Test Item Value Reference Range Interpretation Comments Culture: Anaerobic No Anaerobes Isolated (test code = Culture: After 2 Days Anaerobic) [facility] Stain Wrloxb1680-92-76 15:00:00 Test Item Value Reference Range Interpretation Comments Gram Stain Report No Wbc'S Or Organisms (test code = Gram Seen Stain Report) [facility]: Aspirate/Body Fluid/Mswesm0825-43-53 15:00:00 Test Item Value Reference Range Interpretation Comments Culture: 48 Hour Report - No Aspirate/Body Growth, Holding Fluid/Tissue (test code = Culture: Aspirate/Body Fluid/Tissue) [facility] HospitalConcept Inbox [id number] 10:50:00 Test Item Value Reference Range Interpretation Comments Calcium Lvl (test code = Calcium Lvl) 7.7 8.5-10.5 [facility]annCon[facility] Inbox [id number] 10:50:00 Test Item Value Reference Range Interpretation Comments Potassium Lvl (test code = Potassium 3.6 3.5-5.1 Lvl) [facility] HospitalCon[facility] Inbox [id number] 10:50:00 Test Item Value Reference Range Interpretation Comments Chloride Lvl (test code = Chloride Lvl) 113 95-109 [facility] HospitalConcept Inbox [id number] 10:50:00 Test Item Value Reference Range Interpretation Comments Sodium Lvl (test code = Sodium Lvl) 144 135-145 [facility]2019-04-01 10:50:00 Test Item Value Reference Range Interpretation Comments Creatinine Lvl (test code = Creatinine 0.86 0.50-1.40 Lvl) [facility]2019-04-01 10:50:00 Test Item Value Reference Range Interpretation Comments eGFR (test code = eGFR) 94 [facility]2019-04-01 10:50:00 Test Item Value Reference Range Interpretation Comments CO2 (test code = CO2) 22 24-32 [facility]2019-04-01 10:50:00 Test Item Value Reference Range Interpretation Comments Glucose Lvl (test code = Glucose Lvl) 89 70-99 [facility]2019-04-01 10:50:00 Test Item Value Reference Range Interpretation Comments BUN (test code = BUN) 10 7- [facility]2019-04-01 10:50:00 Test Item Value Reference Range Interpretation Comments AGAP (test code = AGAP) 12.6 10.0-20.0 [facility]2019-04-01 10:50:00 Test Item Value Reference Range Interpretation Comments Calcium Lvl (test code = Calcium Lvl) 7.7 8.5-10.5 [facility]2019-04-01 10:50:00 Test Item Value Reference Range Interpretation Comments Potassium Lvl (test code = Potassium 3.6 3.5-5.1 Lvl) [facility]2019-04-01 10:50:00 Test Item Value Reference Range Interpretation Comments Chloride Lvl (test code = Chloride Lvl) 113 95-109 [facility]2019-04-01 10:50:00 Test Item Value Reference Range Interpretation Comments Sodium Lvl (test code = Sodium Lvl) 144 135-145 [facility]2019-04-01 10:50:00 Test Item Value Reference Range Interpretation Comments Creatinine Lvl (test code = Creatinine 0.86 0.50-1.40 Lvl) [facility]2019-04-01 10:50:00 Test Item Value Reference Range Interpretation Comments eGFR (test code = eGFR) 94 [facility]2019-04-01 10:50:00 Test Item Value Reference Range Interpretation Comments CO2 (test code = CO2) 22 -32 [facility]2019-04-01 10:50:00 Test Item Value Reference Range Interpretation Comments Glucose Lvl (test code = Glucose Lvl) 89 70 [facility]2019-04-01 10:50:00 Test Item Value Reference Range Interpretation Comments BUN (test code = BUN) 10 09-23 [facility]2019-04-01 10:50:00 Test Item Value Reference Range Interpretation Comments AGAP (test code = AGAP) 12.6 10.0-20.0 [facility]2019-04-01 10:50:00 Test Item Value Reference Range Interpretation Comments Calcium Lvl (test code = Calcium Lvl) 7.7 8.5-10.5 [facility]2019-04-01 10:50:00 Test Item Value Reference Range Interpretation Comments Potassium Lvl (test code = Potassium 3.6 3.5-5.1 Lvl) [facility]2019-04-01 10:50:00 Test Item Value Reference Range Interpretation Comments Chloride Lvl (test code = Chloride Lvl) 113 95-109 [facility]2019-04-01 10:50:00 Test Item Value Reference Range Interpretation Comments Sodium Lvl (test code = Sodium Lvl) 144 135-145 [facility]2019-04-01 10:50:00 Test Item Value Reference Range Interpretation Comments Creatinine Lvl (test code = Creatinine 0.86 0.50-1.40 Lvl) [facility]2019-04-01 10:50:00 Test Item Value Reference Range Interpretation Comments eGFR (test code = eGFR) 94 [facility]2019-04-01 10:50:00 Test Item Value Reference Range Interpretation Comments CO2 (test code = CO2) - [facility]2019-04-01 10:50:00 Test Item Value Reference Range Interpretation Comments Glucose Lvl (test code = Glucose Lvl) 89 [facility]2019-04-01 10:50:00 Test Item Value Reference Range Interpretation Comments BUN (test code = BUN) 10 09-23 [facility]2019-04-01 10:50:00 Test Item Value Reference Range Interpretation Comments AGAP (test code = AGAP) 12.6 10.0-20.0 [facility]2019-04-01 10:50:00 Test Item Value Reference Range Interpretation Comments Calcium Lvl (test code = Calcium Lvl) 7.7 8.5-10.5 [facility]2019-04-01 10:50:00 Test Item Value Reference Range Interpretation Comments Potassium Lvl (test code = Potassium 3.6 3.5-5.1 Lvl) [facility]2019-04-01 10:50:00 Test Item Value Reference Range Interpretation Comments Chloride Lvl (test code = Chloride Lvl) 113 95-109 [facility]2019-04-01 10:50:00 Test Item Value Reference Range Interpretation Comments Sodium Lvl (test code = Sodium Lvl) 144 135-145 [facility]2019-04-01 10:50:00 Test Item Value Reference Range Interpretation Comments Creatinine Lvl (test code = Creatinine 0.86 0.50-1.40 Lvl) [facility]2019-04-01 10:50:00 Test Item Value Reference Range Interpretation Comments eGFR (test code = eGFR) 94 [facility]2019-04-01 10:50:00 Test Item Value Reference Range Interpretation Comments CO2 (test code = CO2) 22 24-32 [facility]2019-04-01 10:50:00 Test Item Value Reference Range Interpretation Comments Glucose Lvl (test code = Glucose Lvl) 89 70-99 [facility]2019-04-01 10:50:00 Test Item Value Reference Range Interpretation Comments BUN (test code = BUN) 10 7-22 [facility]2019-04-01 10:50:00 Test Item Value Reference Range Interpretation Comments AGAP (test code = AGAP) 12.6 10.0-20.0 [facility]QuuCARTrifactaAC EOULZWE3884-64-79 20:59:00 Test Item Value Reference Range Interpretation Comments BNP (test code = BNP) [address] [facility] UVMSLTW0494-35-75 20:59:00 Test Item Value Reference Range Interpretation Comments Troponin-I (test code no gt See_Comment [Auto mated message] The = Troponin-I) system which g enerated this result transmit garrett reference range : <=0.40. The reference r ondina was not used to interpr et this result as cassie l/abnormal. [facility] CenterannCARDIAC CUQXGTT7648-23-63 20:59:00 Test Item Value Reference Range Interpretation Comments Total CK (test code = Total CK) 38 12-191 [facility] CenterTrbfgjbIVRGNMSVBGBN9634-19-72 20:59:00 Test Item Value Reference Range Interpretation Comments AGAP (test code = AGAP) 9.7 10.0-20.0 [facility] CenterQlovbagLTINALTWQGWC2192-68-39 20:59:00 Test Item Value Reference Range Interpretation Comments B/C Ratio (test code = B/C Ratio) 11 1 6-25 [facility]RssbjqcRRUQLQIDSQXL3112-32-49 20:59:00 Test Item Value Reference Range Interpretation Comments A/G Ratio (test code = A/G Ratio) 0.6 1 0.7-1.6 [facility]aXznwybaACKQFGOQLYGG6436-23-81 20:59:00 Test Item Value Reference Range Interpretation Comments Globulin (test code = Globulin) 4.2 2.7-4.2 [facility]aBabhqfsGFGGQIYKTGNE3742-97-75 20:59:00 Test Item Value Reference Range Interpretation Comments Albumin Lvl (test code = Albumin Lvl) 2.7 3.5-5.0 [facility]aSkbfnnyRWUBJWJEZCQI7116-58-95 20:59:00 Test Item Value Reference Range Interpretation Comments Glucose Lvl (test code = Glucose Lvl) 98 70-99 [facility]aIssezadTXUIMARBXTKM5764-09-04 20:59:00 Test Item Value Reference Range Interpretation Comments CO2 (test code = CO2) 26 24-32 [facility] CenterYoilqpaYUEPDMWXGUDC3667-91-45 20:59:00 Test Item Value Reference Range Interpretation Comments BUN (test code = BUN) 11 7-22 [facility]aUlfmzisEXNVYQURZZNM1183-61-61 20:59:00 Test Item Value Reference Range Interpretation Comments eGFR (test code = eGFR) 82 [facility]aYdzdwsfEKIFHNIKMPAV0222-86-44 20:59:00 Test Item Value Reference Range Interpretation Comments AST (test code = AST) 6 See_Comment [Auto mated message] The system which ge nerated this result transmit garrett reference range : <=37. The reference range was not used to interpr et this result as cassie l/abnormal. [facility]aDgwzoqtNIWZLVRAGXYW9103-76-08 20:59:00 Test Item Value Reference Range Interpretation Comments ALT (test code = ALT) 13 See_Comment [Auto mated message] The system which ge nerated this result transmit garrett reference range : <=65. The reference range was not used to interpr et this result as cassie l/abnormal. [facility]aKppujfxDAOSQVJCFOZD1854-43-04 20:59:00 Test Item Value Reference Range Interpretation Comments Creatinine Lvl (test code = Creatinine 1.00 0.50-1.40 Lvl) [facility]aNmysvjrFGAPOBWVSBWL6059-32-51 20:59:00 Test Item Value Reference Range Interpretation Comments Bili Total (test code = Bili Total) 0.1 0.2-1.3 [facility]aCvhgkwkYAIHFSRFAQFB4751-99-45 20:59:00 Test Item Value Reference Range Interpretation Comments Total Protein (test code = Total 6.9 6.4-8.4 Protein) [facility]penaIuxjqutEOJJBSPDRHGV4894-64-08 20:59:00 Test Item Value Reference Range Interpretation Comments Calcium Lvl (test code = Calcium Lvl) 8.2 8.5-10.5 [facility]aDbzmxjfXKBNLTREOESK3652-24-81 20:59:00 Test Item Value Reference Range Interpretation Comments Alk Phos (test code = Alk Phos) 122 39-136 [facility]aLfcjawyACRRIGNIFTLL9120-25-30 20:59:00 Test Item Value Reference Range Interpretation Comments Sodium Lvl (test code = Sodium Lvl) 145 135-145 [facility]aXbfsyjgYGYKCMQOMHAU5646-73-67 20:59:00 Test Item Value Reference Range Interpretation Comments Chloride Lvl (test code = Chloride Lvl) 113 95-109 [facility]aPwxoavxPZFMXZQOPPTV4925-35-91 20:59:00 Test Item Value Reference Range Interpretation Comments Potassium Lvl (test code = Potassium 3.7 3.5-5.1 Lvl) [facility]JxxvukwEXDCGCSDHQ9792-26-73 20:59:00 Test Item Value Reference Range Interpretation Comments PT (test code = PT) 13.3 s 12.0-14.7 [facility] CenterRszuoncJJBFHEWYEX2447-48-50 20:59:00 Test Item Value Reference Range Interpretation Comments INR (test code = INR) 1.03 1 0.85-1.17 [facility] CenterIupjiaeUQDLFQSJIF2802-78-98 20:59:00 Test Item Value Reference Range Interpretation Comments PTT (test code = PTT) 31.9 s 22.9-35.8 [facility] CenterPvbjzngNHDANFSEZE8027-31-32 20:59:00 Test Item Value Reference Range Interpretation Comments MPV (test code = MPV) 8.1 7.4-10.4 [facility] CenterWdnluvoKSAMJHGKQO4938-06-25 20:59:00 Test Item Value Reference Range Interpretation Comments MCHC (test code = MCHC) 30.8 32.0-36.0 [facility] CenterVntwmdtTQJOVXCRKW6339-76-63 20:59:00 Test Item Value Reference Range Interpretation Comments MCV (test code = MCV) 81.3 80.0-94.0 [facility] CenterMkhkucvWFTRSRAHMH4368-84-68 20:59:00 Test Item Value Reference Range Interpretation Comments MCH (test code = MCH) 25.1 pg 27.0-31.0 [facility] CenterJetherqCDLBUVIFMA6186-80-33 20:59:00 Test Item Value Reference Range Interpretation Comments RDW (test code = RDW) 18.6 11.5-14.5 [facility] CenterPaalmqzSPYADNDRYK0872-71-18 20:59:00 Test Item Value Reference Range Interpretation Comments RBC (test code = RBC) 3.52 4.70-6.10 [facility] CenterTwltcweUNWXKBTLRA1153-65-13 20:59:00 Test Item Value Reference Range Interpretation Comments Hgb (test code = Hgb) 8.8 14.0-18.0 [facility] CenterRyvwlxcNJRZMNIAZS2696-54-63 20:59:00 Test Item Value Reference Range Interpretation Comments WBC (test code = WBC) 6.0 3.7-10.4 [facility] CenterGteetxiVYLPVAPOCY8820-47-23 20:59:00 Test Item Value Reference Range Interpretation Comments Hct (test code = Hct) 28.6 42.0-54.0 [facility] CenterKtqpnxsSUWDAKYKBO0604-83-73 20:59:00 Test Item Value Reference Range Interpretation Comments Platelet (test code = Platelet) 390 133-450 [facility] CenterJmwygsqTCISWTTXAZ4380-73-04 20:59:00 Test Item Value Reference Range Interpretation Comments Monocytes (test code = Monocytes) 10.1 2.0-12.0 [facility] CenterZdtujnbTPEWWSQKQX2244-79-54 20:59:00 Test Item Value Reference Range Interpretation Comments Lymphocytes (test code = Lymphocytes) 16.4 20.0-40.0 [facility] CenterErvdykdNKNMTZXWTX8159-01-37 20:59:00 Test Item Value Reference Range Interpretation Comments Anisocyte (test code = 1+ *ABN*(06/02/18 Anisocyte) 3:59 PM) [facility] CenterNwlkrchKBIODGDMNY5138-06-01 20:59:00 Test Item Value Reference Range Interpretation Comments Eosinophils # (test code 0.2 See_Comment [A utomated message] The = Eosinophils #) system whic h generated this result tra nsmitted reference range : <=0.5. The reference r ondina was not used to int erpret this result as normal/abnormal . [facility] CenterSznvzvlLTUQQPCYIF0377-51-07 20:59:00 Test Item Value Reference Range Interpretation Comments Neutrophils # (test code = Neutrophils 4.1 1.5-8.1 #) [facility] CenterBlrzxhgKEAPMICXID6460-25-39 20:59:00 Test Item Value Reference Range Interpretation Comments Basophils (test code = 0.8 See_Comment [Aut omated message] The Basophils) system which ge nerated this result tra nsmitted reference range : <=1.0. The reference r ondina was not used to int erpret this result as normal/abnormal . [facility] CenterMhhfwapBWUTTDNRMA8066-31-61 20:59:00 Test Item Value Reference Range Interpretation Comments Eosinophils (test code = 4.0 See_Comment [A utomated message] The Eosinophils) system which ge nerated this result tra nsmitted reference range : <=4.0. The reference r ondina was not used to int erpret this result as normal/abnormal . [facility] CenterTaeppnbOWWEGAJSUC2064-27-49 20:59:00 Test Item Value Reference Range Interpretation Comments Segs (test code = Segs) 68.7 45.0-75.0 [facility] CenterEsgytklIHBASDWGDF6267-32-41 20:59:00 Test Item Value Reference Range Interpretation Comments Hypochrom (test code = 2+ (06/02/18 3:59 PM) Hypochrom) [facility] CenterPvttipaAMZWYKULTG5789-18-83 20:59:00 Test Item Value Reference Range Interpretation Comments Large Plt (test code Moderate *ABN*(06/02/18 = Large Plt) 3:59 PM) [facility] CenterCpoibogHXVIBBCBKJ8563-49-50 20:59:00 Test Item Value Reference Range Interpretation Comments Lymphocytes # (test code = Lymphocytes 1.0 1.0-5.5 #) [facility] HospitalArbrvwlXDDGJJEDCV5621-38-11 20:59:00 Test Item Value Reference Range Interpretation Comments Monocytes # (test code 0.6 See_Comment [Aut omated message] The = Monocytes #) system which generated this result tra nsmitted reference range : <=0.8. The reference r ondina was not used to int erpret this result as normal/abnormal . [facility] HospitalCARTrifactaAC FPLFOXB7418-35-54 20:59:00 Test Item Value Reference Range Interpretation Comments BNP (test code = BNP) 454 [facility] GXGAVMP9825-42-16 20:59:00 Test Item Value Reference Range Interpretation Comments Troponin-I (test code no gt See_Comment [Auto mated message] The = Troponin-I) system which g enerated this result transmit garrett reference range : <=0.40. The reference r ondina was not used to interpr et this result as cassie l/abnormal. [facility] HospitalPulpWorks SLDNNRO4149-24-69 20:59:00 Test Item Value Reference Range Interpretation Comments Total CK (test code = Total CK) 38 12-191 [facility]aStxbjynAQEREZPRVWRF9322-03-32 20:59:00 Test Item Value Reference Range Interpretation Comments AGAP (test code = AGAP) 9.7 10.0-20.0 [facility]aCnjupzoLNCZTHTWGKZZ7360-37-14 20:59:00 Test Item Value Reference Range Interpretation Comments B/C Ratio (test code = B/C Ratio) 11 1 6-25 [facility]aJeblxlbQJRNJKWTXGEY5981-74-02 20:59:00 Test Item Value Reference Range Interpretation Comments A/G Ratio (test code = A/G Ratio) 0.6 1 0.7-1.6 [facility]aAsknaqqLOCFRBWFLFUM9178-09-31 20:59:00 Test Item Value Reference Range Interpretation Comments Globulin (test code = Globulin) 4.2 2.7-4.2 [facility]aMjaxmqeOUBJKKPEIPJG7799-74-14 20:59:00 Test Item Value Reference Range Interpretation Comments Albumin Lvl (test code = Albumin Lvl) 2.7 3.5-5.0 [facility]aXcrnydeWXYXNYUJPICJ1078-88-45 20:59:00 Test Item Value Reference Range Interpretation Comments Glucose Lvl (test code = Glucose Lvl) 98 70-99 [facility]aBskunldPEROJFTTCBSA3008-72-02 20:59:00 Test Item Value Reference Range Interpretation Comments CO2 (test code = CO2) 26 24-32 [facility]aAmbrbckCSUXVMHRGTLT2968-51-92 20:59:00 Test Item Value Reference Range Interpretation Comments BUN (test code = BUN) 11 7-22 [facility]aNvkjmdpCDCNRWKOKNYB3154-33-53 20:59:00 Test Item Value Reference Range Interpretation Comments eGFR (test code = eGFR) 82 [facility]aDmfjvtzFTXKCUJNMAGF8788-18-68 20:59:00 Test Item Value Reference Range Interpretation Comments AST (test code = AST) 6 See_Comment [Auto mated message] The system which ge nerated this result transmit garrett reference range : <=37. The reference range was not used to interpr et this result as cassie l/abnormal. [facility]penaLaycgewSBTLOMQKLPJY2728-06-39 20:59:00 Test Item Value Reference Range Interpretation Comments ALT (test code = ALT) 13 See_Comment [Auto mated message] The system which ge nerated this result transmit garrett reference range : <=65. The reference range was not used to interpr et this result as cassie l/abnormal. [facility]aQeqqdigEKZUEWQPAWCL8919-60-68 20:59:00 Test Item Value Reference Range Interpretation Comments Creatinine Lvl (test code = Creatinine 1.00 0.50-1.40 Lvl) [facility]aQlqbnrwWCEJHRFWPUEA5391-62-77 20:59:00 Test Item Value Reference Range Interpretation Comments Bili Total (test code = Bili Total) 0.1 0.2-1.3 [facility]aKjquggoMQAZVCDCCHXZ6742-43-80 20:59:00 Test Item Value Reference Range Interpretation Comments Total Protein (test code = Total 6.9 6.4-8.4 Protein) [facility]aBcmsqoyOSAMISSGDCIV8040-56-24 20:59:00 Test Item Value Reference Range Interpretation Comments Calcium Lvl (test code = Calcium Lvl) 8.2 8.5-10.5 [facility]aBkcqgwvOTZXCGUMCEFP0303-15-40 20:59:00 Test Item Value Reference Range Interpretation Comments Alk Phos (test code = Alk Phos) 122 39-136 [facility]aWecevxhCJWFCQVBFFXT9807-06-04 20:59:00 Test Item Value Reference Range Interpretation Comments Sodium Lvl (test code = Sodium Lvl) 145 135-145 [facility]penaLdoskmhUUGDHADPYYKP3957-95-64 20:59:00 Test Item Value Reference Range Interpretation Comments Chloride Lvl (test code = Chloride Lvl) 113 95-109 [facility]aLmtqylpPFNXEGXTUIQO7955-61-23 20:59:00 Test Item Value Reference Range Interpretation Comments Potassium Lvl (test code = Potassium 3.7 3.5-5.1 Lvl) [facility] CenterCucdvhxFQYRNQFCCY5566-44-58 20:59:00 Test Item Value Reference Range Interpretation Comments PT (test code = PT) 13.3 s 12.0-14.7 [facility] CenterGucturcRNHHNGQNXM1415-50-53 20:59:00 Test Item Value Reference Range Interpretation Comments INR (test code = INR) 1.03 1 0.85-1.17 [facility] CenterBsyjqkoKSCMIOQKEK0306-91-58 20:59:00 Test Item Value Reference Range Interpretation Comments PTT (test code = PTT) 31.9 s 22.9-35.8 [facility] CenterIybyzsxPTMZILQLWM8682-72-45 20:59:00 Test Item Value Reference Range Interpretation Comments MPV (test code = MPV) 8.1 7.4-10.4 [facility] CenterEmuisgvFFIJXOZRRX1986-15-65 20:59:00 Test Item Value Reference Range Interpretation Comments MCHC (test code = MCHC) 30.8 32.0-36.0 [facility] CenterErodfpyXYHPPVDING1229-34-81 20:59:00 Test Item Value Reference Range Interpretation Comments MCV (test code = MCV) 81.3 80.0-94.0 [facility] CenterZjvmwypNPPPHDILGV8303-66-47 20:59:00 Test Item Value Reference Range Interpretation Comments MCH (test code = MCH) 25.1 pg 27.0-31.0 [facility] CenterCteqglxYGBYZSODRA1166-35-56 20:59:00 Test Item Value Reference Range Interpretation Comments RDW (test code = RDW) 18.6 11.5-14.5 [facility] CenterLdckhtxSFQKEBTPFH9636-51-79 20:59:00 Test Item Value Reference Range Interpretation Comments RBC (test code = RBC) 3.52 4.70-6.10 [facility] CenterJqqsbyzVDIKDDCBFE2262-67-94 20:59:00 Test Item Value Reference Range Interpretation Comments Hgb (test code = Hgb) 8.8 14.0-18.0 [facility] CenterIufgcjnXMTCCFAPSC0265-61-82 20:59:00 Test Item Value Reference Range Interpretation Comments WBC (test code = WBC) 6.0 3.7-10.4 [facility] CenterQwylgqmKYODDTGUQT9331-41-31 20:59:00 Test Item Value Reference Range Interpretation Comments Hct (test code = Hct) 28.6 42.0-54.0 [facility] CenterZkjdnbeXNIVWFJISI8651-82-87 20:59:00 Test Item Value Reference Range Interpretation Comments Platelet (test code = Platelet) 390 133-450 [facility] CenterTmjlqqsKJCKEFNJPY3033-84-20 20:59:00 Test Item Value Reference Range Interpretation Comments Monocytes (test code = Monocytes) 10.1 2.0-12.0 [facility] CenterUcosotrQFEMTBVLKQ2141-99-82 20:59:00 Test Item Value Reference Range Interpretation Comments Lymphocytes (test code = Lymphocytes) 16.4 20.0-40.0 [facility] CenterRfkkoleWNPNCYZZZU9973-34-78 20:59:00 Test Item Value Reference Range Interpretation Comments Anisocyte (test code = 1+ *ABN*(06/02/18 Anisocyte) 3:59 PM) [facility] CenterFkhyfssKQRISRDAOD8931-62-60 20:59:00 Test Item Value Reference Range Interpretation Comments Eosinophils # (test code 0.2 See_Comment [A utomated message] The = Eosinophils #) system whic h generated this result tra nsmitted reference range : <=0.5. The reference r ondina was not used to int erpret this result as normal/abnormal . [facility] CenterQcxvhqaKJJZWSWBTJ9915-01-71 20:59:00 Test Item Value Reference Range Interpretation Comments Neutrophils # (test code = Neutrophils 4.1 1.5-8.1 #) [facility] CenterMkoqeitRBUCMIBEJA3840-57-49 20:59:00 Test Item Value Reference Range Interpretation Comments Basophils (test code = 0.8 See_Comment [Aut omated message] The Basophils) system which ge nerated this result tra nsmitted reference range : <=1.0. The reference r ondina was not used to int erpret this result as normal/abnormal . [facility] CenterLbqliapOWJJSESUVL9865-73-47 20:59:00 Test Item Value Reference Range Interpretation Comments Eosinophils (test code = 4.0 See_Comment [A utomated message] The Eosinophils) system which ge nerated this result tra nsmitted reference range : <=4.0. The reference r ondina was not used to int erpret this result as normal/abnormal . [facility] CenterRqjfmqkDEPAYZQMXZ7276-67-92 20:59:00 Test Item Value Reference Range Interpretation Comments Segs (test code = Segs) 68.7 45.0-75.0 [facility] CenterGhqtkrrWRJOXGIOLO2383-64-47 20:59:00 Test Item Value Reference Range Interpretation Comments Hypochrom (test code = 2+ (06/02/18 3:59 PM) Hypochrom) [facility] CenterQlpeyjnDIULOHZHCD8577-35-03 20:59:00 Test Item Value Reference Range Interpretation Comments Large Plt (test code Moderate *ABN*(06/02/18 = Large Plt) 3:59 PM) [facility] CenterJszdbzaFKWIJMNMRJ6944-70-14 20:59:00 Test Item Value Reference Range Interpretation Comments Lymphocytes # (test code = Lymphocytes 1.0 1.0-5.5 #) [facility] CenterFhyitfkZLJRJDXIAR8856-05-47 20:59:00 Test Item Value Reference Range Interpretation Comments Monocytes # (test code 0.6 See_Comment [Aut omated message] The = Monocytes #) system which generated this result tra nsmitted reference range : <=0.8. The reference r ondina was not used to int erpret this result as normal/abnormal . [facility] HospitalVys[facility] OQTFKDO0445-11-68 20:59:00 Test Item Value Reference Range Interpretation Comments BNP (test code = BNP) 454 [facility] HospitalCARBazinga FXLLKGF3917-59-23 20:59:00 Test Item Value Reference Range Interpretation Comments Troponin-I (test code no gt See_Comment [Auto mated message] The = Troponin-I) system which g enerated this result transmit garrett reference range : <=0.40. The reference r ondina was not used to interpr et this result as cassie l/abnormal. [facility] HospitalBloom StudioSOU[facility] PYGVYKX1959-41-00 20:59:00 Test Item Value Reference Range Interpretation Comments Total CK (test code = Total CK) 38 12-191 [facility] CenterFqieofvTYMFIOJGFUPK2381-46-41 20:59:00 Test Item Value Reference Range Interpretation Comments AGAP (test code = AGAP) 9.7 10.0-20.0 [facility]aMooosqsUFQKNGSIJGWK1036-92-43 20:59:00 Test Item Value Reference Range Interpretation Comments B/C Ratio (test code = B/C Ratio) 11 1 6-25 [facility]aArubeihQJBCREAYOYHO1833-98-51 20:59:00 Test Item Value Reference Range Interpretation Comments A/G Ratio (test code = A/G Ratio) 0.6 1 0.7-1.6 [facility]aHsnxcthJNMGJWYPPHGS1734-85-25 20:59:00 Test Item Value Reference Range Interpretation Comments Globulin (test code = Globulin) 4.2 2.7-4.2 [facility]aLhxffvtJADBSGYLQWOR7501-72-25 20:59:00 Test Item Value Reference Range Interpretation Comments Albumin Lvl (test code = Albumin Lvl) 2.7 3.5-5.0 [facility]penaIzqbtnxGAAYPUMTDTOD2786-60-82 20:59:00 Test Item Value Reference Range Interpretation Comments Glucose Lvl (test code = Glucose Lvl) 98 70-99 [facility]penaLebrqiaQPCVLYYLDXKB1000-78-05 20:59:00 Test Item Value Reference Range Interpretation Comments CO2 (test code = CO2) 26 24-32 [facility]aVsbvjyfQDPLHXJEFGMS0377-78-47 20:59:00 Test Item Value Reference Range Interpretation Comments BUN (test code = BUN) 11 7-22 [facility]aPbhgxaaWTFSSJLCNBWF0047-69-01 20:59:00 Test Item Value Reference Range Interpretation Comments eGFR (test code = eGFR) 82 [facility]aHebeufbZZPMZKKVCRXR9933-30-42 20:59:00 Test Item Value Reference Range Interpretation Comments AST (test code = AST) 6 See_Comment [Auto mated message] The system which ge nerated this result transmit garrett reference range : <=37. The reference range was not used to interpr et this result as cassie l/abnormal. [facility]aPswryojRHMDACJNJCFX9873-27-22 20:59:00 Test Item Value Reference Range Interpretation Comments ALT (test code = ALT) 13 See_Comment [Auto mated message] The system which ge nerated this result transmit garrett reference range : <=65. The reference range was not used to interpr et this result as cassie l/abnormal. [facility]penaQqpjhagLIESBSOSCMLH8197-22-45 20:59:00 Test Item Value Reference Range Interpretation Comments Creatinine Lvl (test code = Creatinine 1.00 0.50-1.40 Lvl) [facility]aXeryqjxMNEHXDAZPXNZ7146-97-92 20:59:00 Test Item Value Reference Range Interpretation Comments Bili Total (test code = Bili Total) 0.1 0.2-1.3 [facility]aJjjdgdfVXECAUUIMCNL3729-32-00 20:59:00 Test Item Value Reference Range Interpretation Comments Total Protein (test code = Total 6.9 6.4-8.4 Protein) [facility]aOferjnsXBJLNWULRBOP0736-01-11 20:59:00 Test Item Value Reference Range Interpretation Comments Calcium Lvl (test code = Calcium Lvl) 8.2 8.5-10.5 [facility]aPvtjjqzXGOBTLIAZMDF3476-91-47 20:59:00 Test Item Value Reference Range Interpretation Comments Alk Phos (test code = Alk Phos) 122 39-136 [facility]penaWbyibruSBJFQSABKLJM0227-62-62 20:59:00 Test Item Value Reference Range Interpretation Comments Sodium Lvl (test code = Sodium Lvl) 145 135-145 [facility]penaUrbhfyiDQOEEOMHIUCG0435-96-77 20:59:00 Test Item Value Reference Range Interpretation Comments Chloride Lvl (test code = Chloride Lvl) 113 95-109 [facility]penaGrkpjcdDMKRZRQCXXLP9358-33-97 20:59:00 Test Item Value Reference Range Interpretation Comments Potassium Lvl (test code = Potassium 3.7 3.5-5.1 Lvl) [facility] CenterHahdlkeZTRRDTGNSR4379-59-11 20:59:00 Test Item Value Reference Range Interpretation Comments PT (test code = PT) 13.3 s 12.0-14.7 [facility] CenterVopydnuJHQBDOMHHR7446-24-51 20:59:00 Test Item Value Reference Range Interpretation Comments INR (test code = INR) 1.03 1 0.85-1.17 [facility] CenterWdbodboRSNDIDZJMS3454-41-53 20:59:00 Test Item Value Reference Range Interpretation Comments PTT (test code = PTT) 31.9 s 22.9-35.8 [facility] CenterSzdgnxwILQLSDNAJF3567-03-14 20:59:00 Test Item Value Reference Range Interpretation Comments MPV (test code = MPV) 8.1 7.4-10.4 [place] [address]-03-31 20:59:00 Test Item Value Reference Range Interpretation Comments MCHC (test code = MCHC) 30.8 32.0-36.0 [facility] CenterMwcjqxjOOLGMARFVG9480-67-26 20:59:00 Test Item Value Reference Range Interpretation Comments MCV (test code = MCV) 81.3 80.0-94.0 [facility] CenterJaqbfwpTFXNNCROYB4158-87-02 20:59:00 Test Item Value Reference Range Interpretation Comments MCH (test code = MCH) 25.1 pg 27.0-31.0 [facility] CenterFdxqmohNESLLMGQAB4109-47-17 20:59:00 Test Item Value Reference Range Interpretation Comments RDW (test code = RDW) 18.6 11.5-14.5 [facility] CenterHdzejtqPJRDXCXXDM6767-76-51 20:59:00 Test Item Value Reference Range Interpretation Comments RBC (test code = RBC) 3.52 4.70-6.10 [facility] CenterBudyzisBAPBUBIYDL0459-04-81 20:59:00 Test Item Value Reference Range Interpretation Comments Hgb (test code = Hgb) 8.8 14.0-18.0 [facility] CenterIssyxafTHYCAAFEKM4320-67-77 20:59:00 Test Item Value Reference Range Interpretation Comments WBC (test code = WBC) 6.0 3.7-10.4 [facility] CenterEvebuxeQEEWFODWVS9222-39-54 20:59:00 Test Item Value Reference Range Interpretation Comments Hct (test code = Hct) 28.6 42.0-54.0 [facility] CenterAepakblVRYOWVTILF4926-68-90 20:59:00 Test Item Value Reference Range Interpretation Comments Platelet (test code = Platelet) 390 133-450 [facility] CenterJwamyjeSCCJTUGAPE3168-52-50 20:59:00 Test Item Value Reference Range Interpretation Comments Monocytes (test code = Monocytes) 10.1 2.0-12.0 [facility] CenterRmezvmtTJAGJAYRNJ5992-35-53 20:59:00 Test Item Value Reference Range Interpretation Comments Lymphocytes (test code = Lymphocytes) 16.4 20.0-40.0 [facility] CenterHjbpgemLKATBOCMQO6012-22-32 20:59:00 Test Item Value Reference Range Interpretation Comments Anisocyte (test code = 1+ *ABN*(06/02/18 Anisocyte) 3:59 PM) [facility] CenterGeqdavkDGCCGRFHEL1346-65-40 20:59:00 Test Item Value Reference Range Interpretation Comments Eosinophils # (test code 0.2 See_Comment [A utomated message] The = Eosinophils #) system ic h generated this result tra nsmitted reference range : <=0.5. The reference r ondina was not used to int erpret this result as normal/abnormal . [facility] CenterMbqkxmyXVEEYYZEAL8344-46-59 20:59:00 Test Item Value Reference Range Interpretation Comments Neutrophils # (test code = Neutrophils 4.1 1.5-8.1 #) [facility] CenterIeawqxdNZHWNTVMMG6938-49-78 20:59:00 Test Item Value Reference Range Interpretation Comments Basophils (test code = 0.8 See_Comment [Aut omated message] The Basophils) system which ge nerated this result tra nsmitted reference range : <=1.0. The reference r ondina was not used to int erpret this result as normal/abnormal . [facility] CenterUmbrlcxNPFZWYYWPH6054-29-07 20:59:00 Test Item Value Reference Range Interpretation Comments Eosinophils (test code = 4.0 See_Comment [A utomated message] The Eosinophils) system which ge nerated this result tra nsmitted reference range : <=4.0. The reference r ondina was not used to int erpret this result as normal/abnormal . [facility] CenterCvubsftWSMQTIPUYI0723-20-86 20:59:00 Test Item Value Reference Range Interpretation Comments Segs (test code = Segs) 68.7 45.0-75.0 [facility] CenterSzvlujpFOGYSSQIBA3759-42-84 20:59:00 Test Item Value Reference Range Interpretation Comments Hypochrom (test code = 2+ (06/02/18 3:59 PM) Hypochrom) [facility] CenterIfhrclsFMCCHRSCYM2634-41-84 20:59:00 Test Item Value Reference Range Interpretation Comments Large Plt (test code Moderate *ABN*(06/02/18 = Large Plt) 3:59 PM) [facility] CenterCblehxqNOVSNYEEYP9861-84-19 20:59:00 Test Item Value Reference Range Interpretation Comments Lymphocytes # (test code = Lymphocytes 1.0 1.0-5.5 #) [facility] CenterDzrzgczEAKXOVTCZA5027-17-06 20:59:00 Test Item Value Reference Range Interpretation Comments Monocytes # (test code 0.6 See_Comment [Aut omated message] The = Monocytes #) system which generated this result tra nsmitted reference range : <=0.8. The reference r ondina was not used to int erpret this result as normal/abnormal . [facility] CenterQuuCARDIAC MVOTKQK9028-83-17 20:59:00 Test Item Value Reference Range Interpretation Comments BNP (test code = BNP) 454 [facility] YTSEAFS6905-22-35 20:59:00 Test Item Value Reference Range Interpretation Comments Troponin-I (test code no gt See_Comment [Auto mated message] The = Troponin-I) system which g enerated this result transmit garrett reference range : <=0.40. The reference r ondina was not used to interpr et this result as cassie l/abnormal. [facility] CenterLingohub HKMUQUD2079-38-39 20:59:00 Test Item Value Reference Range Interpretation Comments Total CK (test code = Total CK) 38 12-191 [facility]aTybeivvWTMXRDVNEGHB4005-47-88 20:59:00 Test Item Value Reference Range Interpretation Comments AGAP (test code = AGAP) 9.7 10.0-20.0 [facility]RepkuyhFSBTCQIOYFHM8456-87-12 20:59:00 Test Item Value Reference Range Interpretation Comments B/C Ratio (test code = B/C Ratio) 11 1 6-25 [facility] CampusQvvjhhtSVFFFIVBXVXG9260-35-45 20:59:00 Test Item Value Reference Range Interpretation Comments A/G Ratio (test code = A/G Ratio) 0.6 1 0.7-1.6 [facility] CampusPuhbbcqERLLAGOWSDFY7221-23-42 20:59:00 Test Item Value Reference Range Interpretation Comments Globulin (test code = Globulin) 4.2 2.7-4.2 [facility] CampusCcvjhkhHPHETQIBBTTA5599-19-78 20:59:00 Test Item Value Reference Range Interpretation Comments Albumin Lvl (test code = Albumin Lvl) 2.7 3.5-5.0 [facility] CampusKygebjnTLPQJBSFPBTL9445-10-65 20:59:00 Test Item Value Reference Range Interpretation Comments Glucose Lvl (test code = Glucose Lvl) 98 70-99 [facility] CampusAblazwdWFYKQQJZWKYY5538-00-12 20:59:00 Test Item Value Reference Range Interpretation Comments CO2 (test code = CO2) 26 24-32 [facility] CampusKlvhexjEKAHVXGPYKZD7905-99-44 20:59:00 Test Item Value Reference Range Interpretation Comments BUN (test code = BUN) 11 7-22 [facility]aLgjfjkmHJRUKJWUKBQB4532-99-59 20:59:00 Test Item Value Reference Range Interpretation Comments eGFR (test code = eGFR) 82 [facility]aHjivuijPFHDNKHLKJNH1962-25-99 20:59:00 Test Item Value Reference Range Interpretation Comments AST (test code = AST) 6 See_Comment [Auto mated message] The system which ge nerated this result transmit garrett reference range : <=37. The reference range was not used to interpr et this result as cassie l/abnormal. [facility]penaIyhguguACZPAPWVAOTI4236-68-75 20:59:00 Test Item Value Reference Range Interpretation Comments ALT (test code = ALT) 13 See_Comment [Auto mated message] The system which ge nerated this result transmit garrett reference range : <=65. The reference range was not used to interpr et this result as cassie l/abnormal. [facility]aDmwzcnvPWJOCWUYDDTQ7302-29-11 20:59:00 Test Item Value Reference Range Interpretation Comments Creatinine Lvl (test code = Creatinine 1.00 0.50-1.40 Lvl) [facility]aNzjenvoVDYHQDDQMJRR2549-34-22 20:59:00 Test Item Value Reference Range Interpretation Comments Bili Total (test code = Bili Total) 0.1 0.2-1.3 [facility]aChgezjyDOJPCPYBJXWJ4598-39-80 20:59:00 Test Item Value Reference Range Interpretation Comments Total Protein (test code = Total 6.9 6.4-8.4 Protein) [facility]aAvkdoxxEIGPUQTIGMHI2333-43-97 20:59:00 Test Item Value Reference Range Interpretation Comments Calcium Lvl (test code = Calcium Lvl) 8.2 8.5-10.5 [facility]aAragtflJSVYACBAJJIP8412-32-03 20:59:00 Test Item Value Reference Range Interpretation Comments Alk Phos (test code = Alk Phos) 122 39-136 [facility]aTplrmazZQSWCLLHYQPC0569-14-28 20:59:00 Test Item Value Reference Range Interpretation Comments Sodium Lvl (test code = Sodium Lvl) 145 135-145 [facility]aFuyjcgcVKCPWGKXRFLB4739-25-80 20:59:00 Test Item Value Reference Range Interpretation Comments Chloride Lvl (test code = Chloride Lvl) 113 95-109 [facility]aOnltxwnZUISAMKLLCRO5166-65-65 20:59:00 Test Item Value Reference Range Interpretation Comments Potassium Lvl (test code = Potassium 3.7 3.5-5.1 Lvl) [facility] CenterNaxkxbmUGRKIMWBZX7217-76-90 20:59:00 Test Item Value Reference Range Interpretation Comments PT (test code = PT) 13.3 s 12.0-14.7 [facility] CenterXrfltpeQMXHWPEXSL9360-10-70 20:59:00 Test Item Value Reference Range Interpretation Comments INR (test code = INR) 1.03 1 0.85-1.17 [facility] CenterYvluadkWAYERRDEQY5782-25-06 20:59:00 Test Item Value Reference Range Interpretation Comments PTT (test code = PTT) 31.9 s 22.9-35.8 [facility] CenterHccywhvIBMBVAGVRW2545-24-84 20:59:00 Test Item Value Reference Range Interpretation Comments MPV (test code = MPV) 8.1 7.4-10.4 [facility] CenterXueigxiRDXCOQEPQG2243-35-33 20:59:00 Test Item Value Reference Range Interpretation Comments MCHC (test code = MCHC) 30.8 32.0-36.0 [facility] CenterQjftkmfKPPWMIJNIN0650-39-13 20:59:00 Test Item Value Reference Range Interpretation Comments MCV (test code = MCV) 81.3 80.0-94.0 [facility] CenterBnqdqczPABZOBARFX6424-64-34 20:59:00 Test Item Value Reference Range Interpretation Comments MCH (test code = MCH) 25.1 pg 27.0-31.0 [facility] CenterKzklbbiUHUHHDZTRE8625-48-59 20:59:00 Test Item Value Reference Range Interpretation Comments RDW (test code = RDW) 18.6 11.5-14.5 [facility] CenterTescwbiBNPTQQCPXU8658-24-77 20:59:00 Test Item Value Reference Range Interpretation Comments RBC (test code = RBC) 3.52 4.70-6.10 [facility] CenterNdsjpqbVNOWOJYVNS5225-66-16 20:59:00 Test Item Value Reference Range Interpretation Comments Hgb (test code = Hgb) 8.8 14.0-18.0 [facility] CenterXxfxsodQGPNLVHASE8519-91-65 20:59:00 Test Item Value Reference Range Interpretation Comments WBC (test code = WBC) 6.0 3.7-10.4 [place] 539439-03-31 20:59:00 Test Item Value Reference Range Interpretation Comments Hct (test code = Hct) 28.6 42.0-54.0 [facility] CenterPioafunBOMIBIYIEN1748-64-45 20:59:00 Test Item Value Reference Range Interpretation Comments Platelet (test code = Platelet) 390 133-450 [place] 539439-03-31 20:59:00 Test Item Value Reference Range Interpretation Comments Monocytes (test code = Monocytes) 10.1 2.0-12.0 [facility] CenterLirwnmiNQSFLIPXUA7829-80-69 20:59:00 Test Item Value Reference Range Interpretation Comments Lymphocytes (test code = Lymphocytes) 16.4 20.0-40.0 [facility] CenterBtbhlmrYKMPSUVPEC6015-92-27 20:59:00 Test Item Value Reference Range Interpretation Comments Anisocyte (test code = 1+ *ABN*(06/02/18 Anisocyte) 3:59 PM) [facility] CenterMmyqiqzJSFOSNRIQF8252-70-19 20:59:00 Test Item Value Reference Range Interpretation Comments Eosinophils # (test code 0.2 See_Comment [A utomated message] The = Eosinophils #) system [facility] h generated this result tra nsmitted reference range : <=0.5. The reference r ondina was not used to int erpret this result as normal/abnormal . [facility] CenterQlaqtggJNGEVDDGDP7443-04-67 20:59:00 Test Item Value Reference Range Interpretation Comments Neutrophils # (test code = Neutrophils 4.1 1.5-8.1 #) [facility] CenterDsgdtufHHKALMCAAC4235-22-96 20:59:00 Test Item Value Reference Range Interpretation Comments Basophils (test code = 0.8 See_Comment [Aut omated message] The Basophils) system which ge nerated this result tra nsmitted reference range : <=1.0. The reference r ondina was not used to int erpret this result as normal/abnormal . [facility] CenterRcrzbnhQHNLFMUUIB2160-91-31 20:59:00 Test Item Value Reference Range Interpretation Comments Eosinophils (test code = 4.0 See_Comment [A utomated message] The Eosinophils) system which ge nerated this result tra nsmitted reference range : <=4.0. The reference r ondina was not used to int erpret this result as normal/abnormal . [facility] CenterVysofbmRMUXOQDOSN6852-84-55 20:59:00 Test Item Value Reference Range Interpretation Comments Segs (test code = Segs) 68.7 45.0-75.0 [facility] CenterJlkrvqyULKSRUVHYJ3305-36-77 20:59:00 Test Item Value Reference Range Interpretation Comments Hypochrom (test code = 2+ (06/02/18 3:59 PM) Hypochrom) [facility] CenterVpxemrvOFPNOWNYAZ8584-43-83 20:59:00 Test Item Value Reference Range Interpretation Comments Large Plt (test code Moderate *ABN*(06/02/18 = Large Plt) 3:59 PM) [facility] CenterRqegnswKTZXPULDTU4706-80-63 20:59:00 Test Item Value Reference Range Interpretation Comments Lymphocytes # (test code = Lymphocytes 1.0 1.0-5.5 #) [facility] CenterOkvlpegFMFZHSSHWW9044-09-28 20:59:00 Test Item Value Reference Range Interpretation Comments Monocytes # (test code 0.6 See_Comment [Aut omated message] The = Monocytes #) system which generated this result tra nsmitted reference range : <=0.8. The reference r ondina was not used to int erpret this result as normal/abnormal . [facility] CenterVeqfwacDLGFBSFCIO0454-60-51 14:40:00 Test Item Value Reference Range Interpretation Comments Platelet (test code = Platelet) 233 133-450 [facility] CenterMeodmtsPLKVXAIUQS0834-07-29 14:40:00 Test Item Value Reference Range Interpretation Comments MPV (test code = MPV) 8.3 7.4-10.4 [facility] CenterEqtaqjqVOVRLKIOPP4262-24-02 14:40:00 Test Item Value Reference Range Interpretation Comments MCHC (test code = MCHC) 32.2 32.0-36.0 [facility] CenterNdvodbeUUCFAYZOJU1486-58-27 14:40:00 Test Item Value Reference Range Interpretation Comments RDW (test code = RDW) 19.0 11.5-14.5 [facility] CenterZwkvobcKOOCQPSLLK3726-40-28 14:40:00 Test Item Value Reference Range Interpretation Comments Hgb (test code = Hgb) 8.8 14.0-18.0 [facility] CenterVhpzbakKOWPLXKPBI0218-17-76 14:40:00 Test Item Value Reference Range Interpretation Comments RBC (test code = RBC) 3.40 4.70-6.10 [facility] CenterYbzgbxfIQIQCVPHGT2252-96-28 14:40:00 Test Item Value Reference Range Interpretation Comments MCV (test code = MCV) 80.1 80.0-94.0 [facility] CenterJyttmhqCZKPQZIFKG6991-12-95 14:40:00 Test Item Value Reference Range Interpretation Comments MCH (test code = MCH) 25.8 pg 27.0-31.0 [facility] CenterBlrpvdqLXNYQGDSFA2886-72-26 14:40:00 Test Item Value Reference Range Interpretation Comments Hct (test code = Hct) 27.3 42.0-54.0 [facility] CenterZykexwoMWDYMVKMKZ8638-38-59 14:40:00 Test Item Value Reference Range Interpretation Comments WBC (test code = WBC) 7.3 3.7-10.4 [facility] CenterVhkqbsbKDXMNMLQUQ8221-79-01 14:40:00 Test Item Value Reference Range Interpretation Comments Basophils (test code = 1.3 See_Comment [Aut omated message] The Basophils) system which ge nerated this result tra nsmitted reference range : <=1.0. The reference r ondina was not used to int erpret this result as normal/abnormal . [facility] CenterJmneekfYXMOKNFEFR3568-11-44 14:40:00 Test Item Value Reference Range Interpretation Comments Neutrophils # (test code = Neutrophils 4.6 1.5-8.1 #) [facility] CenterPnseikfOYBFCXMWXS6168-01-51 14:40:00 Test Item Value Reference Range Interpretation Comments Eosinophils (test code = 7.5 See_Comment [A utomated message] The Eosinophils) system which ge nerated this result tra nsmitted reference range : <=4.0. The reference r ondina was not used to int erpret this result as normal/abnormal . [facility] CenterIekkqefPGTUUTFHDV5046-58-92 14:40:00 Test Item Value Reference Range Interpretation Comments Monocytes (test code = Monocytes) 8.8 2.0-12.0 [facility] CenterOxusedyIDFLQUBXVO8588-21-75 14:40:00 Test Item Value Reference Range Interpretation Comments Segs (test code = Segs) 63.4 45.0-75.0 [facility] CenterYwaqirgFTBWGQGMOA4770-38-82 14:40:00 Test Item Value Reference Range Interpretation Comments Lymphocytes (test code = Lymphocytes) 19.0 20.0-40.0 [facility] CenterYwzzemzNGRGFPVZSK8213-66-23 14:40:00 Test Item Value Reference Range Interpretation Comments Eosinophils # (test code 0.5 See_Comment [A utomated message] The = Eosinophils #) system whic h generated this result tra nsmitted reference range : <=0.5. The reference r ondina was not used to int erpret this result as normal/abnormal . [facility] CenterQtdjednTKCXJBAAII6046-04-35 14:40:00 Test Item Value Reference Range Interpretation Comments Basophils # (test code 0.1 See_Comment [Aut omated message] The = Basophils #) system which generated this result tra nsmitted reference range : <=0.2. The reference r ondina was not used to int erpret this result as normal/abnormal . [facility] CenterXpteffwFDUPJLPAAM6433-53-19 14:40:00 Test Item Value Reference Range Interpretation Comments Monocytes # (test code 0.6 See_Comment [Aut omated message] The = Monocytes #) system which generated this result tra nsmitted reference range : <=0.8. The reference r ondina was not used to int erpret this result as normal/abnormal . [facility] CenterAwokpuwBEDHVUMSEU3051-52-83 14:40:00 Test Item Value Reference Range Interpretation Comments Lymphocytes # (test code = Lymphocytes 1.4 1.0-5.5 #) [facility] CenterNnhzvmoESYOAQTETS7315-95-00 14:40:00 Test Item Value Reference Range Interpretation Comments Platelet (test code = Platelet) 233 133-450 [facility] CenterAhmbwcfLCJPKOIFVB6867-71-66 14:40:00 Test Item Value Reference Range Interpretation Comments MPV (test code = MPV) 8.3 7.4-10.4 [facility] CenterUdgavymPVRPAGPZMR9422-65-36 14:40:00 Test Item Value Reference Range Interpretation Comments MCHC (test code = MCHC) 32.2 32.0-36.0 [facility] CenterTkshocdCVLVWLQCIC7346-87-23 14:40:00 Test Item Value Reference Range Interpretation Comments RDW (test code = RDW) 19.0 11.5-14.5 [facility] CenterUykuxjiUBUYCMFZLR9980-39-14 14:40:00 Test Item Value Reference Range Interpretation Comments Hgb (test code = Hgb) 8.8 14.0-18.0 [facility] CenterMwljopqRUBRMPKYTZ2660-06-83 14:40:00 Test Item Value Reference Range Interpretation Comments RBC (test code = RBC) 3.40 4.70-6.10 [facility] CenterYmwbxqnWDXZGYCHLW6839-24-07 14:40:00 Test Item Value Reference Range Interpretation Comments MCV (test code = MCV) 80.1 80.0-94.0 [facility] CenterWkhlsarOJRZXDGZZK8650-26-80 14:40:00 Test Item Value Reference Range Interpretation Comments MCH (test code = MCH) 25.8 pg 27.0-31.0 [facility] CenterXjtpvbqBEGEPXERMO1955-91-71 14:40:00 Test Item Value Reference Range Interpretation Comments Hct (test code = Hct) 27.3 42.0-54.0 [facility]IxhlasvXGOBLVFIVM7153-15-06 14:40:00 Test Item Value Reference Range Interpretation Comments WBC (test code = WBC) 7.3 3.7-10.4 [facility] CenterQazeswvCFLFQBYSQV7052-38-39 14:40:00 Test Item Value Reference Range Interpretation Comments Basophils (test code = 1.3 See_Comment [Aut omated message] The Basophils) system which ge nerated this result tra nsmitted reference range : <=1.0. The reference r ondina was not used to int erpret this result as normal/abnormal . [facility] CenterTetfxryQIOPJMKHWQ3929-41-73 14:40:00 Test Item Value Reference Range Interpretation Comments Neutrophils # (test code = Neutrophils 4.6 1.5-8.1 #) [facility] CenterFbtvptiLQNGCPTXIQ8314-61-79 14:40:00 Test Item Value Reference Range Interpretation Comments Eosinophils (test code = 7.5 See_Comment [A utomated message] The Eosinophils) system which ge nerated this result tra nsmitted reference range : <=4.0. The reference r ondina was not used to int erpret this result as normal/abnormal . [facility] CenterRgipvygQCCINYMYQR7024-19-29 14:40:00 Test Item Value Reference Range Interpretation Comments Monocytes (test code = Monocytes) 8.8 2.0-12.0 [facility] CenterYwpdrfnAZUDCZNGWK6854-22-43 14:40:00 Test Item Value Reference Range Interpretation Comments Segs (test code = Segs) 63.4 45.0-75.0 [facility] CenterYkvrgabQCCBLKJBWR7234-28-19 14:40:00 Test Item Value Reference Range Interpretation Comments Lymphocytes (test code = Lymphocytes) 19.0 20.0-40.0 [facility] CenterRtocdfjOJSSLXMPUB0524-59-65 14:40:00 Test Item Value Reference Range Interpretation Comments Eosinophils # (test code 0.5 See_Comment [A utomated message] The = Eosinophils #) system whic h generated this result tra nsmitted reference range : <=0.5. The reference r ondina was not used to int erpret this result as normal/abnormal . [facility] CenterSpzveqpDDOTHNOQKB1804-82-32 14:40:00 Test Item Value Reference Range Interpretation Comments Basophils # (test code 0.1 See_Comment [Aut omated message] The = Basophils #) system which generated this result tra nsmitted reference range : <=0.2. The reference r ondina was not used to int erpret this result as normal/abnormal . [facility] CenterCafccsnZYEBTLWAVT0013-98-35 14:40:00 Test Item Value Reference Range Interpretation Comments Monocytes # (test code 0.6 See_Comment [Aut omated message] The = Monocytes #) system which generated this result tra nsmitted reference range : <=0.8. The reference r ondina was not used to int erpret this result as normal/abnormal . [facility] CenterNaitqtiKJUOWCIFWB7701-66-89 14:40:00 Test Item Value Reference Range Interpretation Comments Lymphocytes # (test code = Lymphocytes 1.4 1.0-5.5 #) [facility] CenterVpbslsaGCHEGWUWDV4507-40-83 14:40:00 Test Item Value Reference Range Interpretation Comments Platelet (test code = Platelet) 233 133-450 [facility] CenterRkafxjlVQWYUTGYSP4715-38-26 14:40:00 Test Item Value Reference Range Interpretation Comments MPV (test code = MPV) 8.3 7.4-10.4 [facility] CenterDgcrlliOZCCEIAPLJ5610-90-31 14:40:00 Test Item Value Reference Range Interpretation Comments MCHC (test code = MCHC) 32.2 32.0-36.0 [facility] CenterCmpawfgACLZRZAKWM0010-60-53 14:40:00 Test Item Value Reference Range Interpretation Comments RDW (test code = RDW) 19.0 11.5-14.5 [facility] CenterRtttweqVWWKJOVSXF4578-72-08 14:40:00 Test Item Value Reference Range Interpretation Comments Hgb (test code = Hgb) 8.8 14.0-18.0 [facility] CenterTmfvrlgIUZJBDVWZC2027-94-86 14:40:00 Test Item Value Reference Range Interpretation Comments RBC (test code = RBC) 3.40 4.70-6.10 [facility] CenterFrctjmuNMSOOXQEIU3940-25-21 14:40:00 Test Item Value Reference Range Interpretation Comments MCV (test code = MCV) 80.1 80.0-94.0 [facility] CenterAnmjmbiLBTFAWXHNF6612-52-27 14:40:00 Test Item Value Reference Range Interpretation Comments MCH (test code = MCH) 25.8 pg 27.0-31.0 [facility] CenterDsbxridUHBRIEFCQG7597-01-76 14:40:00 Test Item Value Reference Range Interpretation Comments Hct (test code = Hct) 27.3 42.0-54.0 [facility] CenterXedkrrmEJSISBSENB5353-71-34 14:40:00 Test Item Value Reference Range Interpretation Comments WBC (test code = WBC) 7.3 3.7-10.4 [facility] CenterWjcceimWNFVQKPWFF4477-61-28 14:40:00 Test Item Value Reference Range Interpretation Comments Basophils (test code = 1.3 See_Comment [Aut omated message] The Basophils) system which ge nerated this result tra nsmitted reference range : <=1.0. The reference r ondina was not used to int erpret this result as normal/abnormal . [facility] CenterUqhxjumJMCERUEYDS6996-95-14 14:40:00 Test Item Value Reference Range Interpretation Comments Neutrophils # (test code = Neutrophils 4.6 1.5-8.1 #) [facility] CenterFzzpxteLIENBBAOQF7239-08-63 14:40:00 Test Item Value Reference Range Interpretation Comments Eosinophils (test code = 7.5 See_Comment [A utomated message] The Eosinophils) system which ge nerated this result tra nsmitted reference range : <=4.0. The reference r ondina was not used to int erpret this result as normal/abnormal . [facility] CenterJnmxoebPABBGPIGHF0509-04-44 14:40:00 Test Item Value Reference Range Interpretation Comments Monocytes (test code = Monocytes) 8.8 2.0-12.0 [facility] CenterZfwoblkASAOKUNQRA1647-86-10 14:40:00 Test Item Value Reference Range Interpretation Comments Segs (test code = Segs) 63.4 45.0-75.0 [facility] CenterTccddssJGATEECPMO6885-63-03 14:40:00 Test Item Value Reference Range Interpretation Comments Lymphocytes (test code = Lymphocytes) 19.0 20.0-40.0 [facility] CenterUuvhmrnXYDMIXEZFC1221-46-34 14:40:00 Test Item Value Reference Range Interpretation Comments Eosinophils # (test code 0.5 See_Comment [A utomated message] The = Eosinophils #) system whic h generated this result tra nsmitted reference range : <=0.5. The reference r ondina was not used to int erpret this result as normal/abnormal . [facility] CenterChjivhpIYJPKSFFZO0904-67-79 14:40:00 Test Item Value Reference Range Interpretation Comments Basophils # (test code 0.1 See_Comment [Aut omated message] The = Basophils #) system which generated this result tra nsmitted reference range : <=0.2. The reference r ondina was not used to int erpret this result as normal/abnormal . [facility] CenterZmacajtHGMCVQHBHO5937-20-66 14:40:00 Test Item Value Reference Range Interpretation Comments Monocytes # (test code 0.6 See_Comment [Aut omated message] The = Monocytes #) system which generated this result tra nsmitted reference range : <=0.8. The reference r ondina was not used to int erpret this result as normal/abnormal . [facility] CenterItmcjhcCBEYBLMTFA9015-45-81 14:40:00 Test Item Value Reference Range Interpretation Comments Lymphocytes # (test code = Lymphocytes 1.4 1.0-5.5 #) [facility] CenterVidxuwdLIFSTLNIZR3453-03-25 14:40:00 Test Item Value Reference Range Interpretation Comments Platelet (test code = Platelet) 233 133-450 [facility] CenterSxnpevoBIWNREGMMV3869-50-71 14:40:00 Test Item Value Reference Range Interpretation Comments MPV (test code = MPV) 8.3 7.4-10.4 [facility] CenterDwytqqnESWHOAFSKW3982-28-93 14:40:00 Test Item Value Reference Range Interpretation Comments MCHC (test code = MCHC) 32.2 32.0-36.0 [facility] CenterJaylpnyPYLBZIHWYZ6400-39-89 14:40:00 Test Item Value Reference Range Interpretation Comments RDW (test code = RDW) 19.0 11.5-14.5 [facility] CenterKjzfdocRKWIXDKURC9423-61-43 14:40:00 Test Item Value Reference Range Interpretation Comments Hgb (test code = Hgb) 8.8 14.0-18.0 [facility] CenterTzvksdgWZRPLCIVWL4854-37-14 14:40:00 Test Item Value Reference Range Interpretation Comments RBC (test code = RBC) 3.40 4.70-6.10 [facility] CenterPgzddiePSJTNWCQTG6838-50-08 14:40:00 Test Item Value Reference Range Interpretation Comments MCV (test code = MCV) 80.1 80.0-94.0 [facility] CenterMfmuhxpUKZSMQQSMG8337-23-56 14:40:00 Test Item Value Reference Range Interpretation Comments MCH (test code = MCH) 25.8 pg 27.0-31.0 [facility] CenterFagogylRSZACXJBRL9262-93-42 14:40:00 Test Item Value Reference Range Interpretation Comments Hct (test code = Hct) 27.3 42.0-54.0 [facility] CenterAnkoiyrXXWTGXJWNC8165-50-30 14:40:00 Test Item Value Reference Range Interpretation Comments WBC (test code = WBC) 7.3 3.7-10.4 [facility] CenterOcyutuySCTMPLRNGR6823-31-14 14:40:00 Test Item Value Reference Range Interpretation Comments Basophils (test code = 1.3 See_Comment [Aut omated message] The Basophils) system which ge nerated this result tra nsmitted reference range : <=1.0. The reference r ondina was not used to int erpret this result as normal/abnormal . [facility] CenterTaiinjqWRWWTZJXMV1992-26-27 14:40:00 Test Item Value Reference Range Interpretation Comments Neutrophils # (test code = Neutrophils 4.6 1.5-8.1 #) [facility] CenterSrphyapPMIRWEGCXQ7867-09-19 14:40:00 Test Item Value Reference Range Interpretation Comments Eosinophils (test code = 7.5 See_Comment [A utomated message] The Eosinophils) system which ge nerated this result tra nsmitted reference range : <=4.0. The reference r ondina was not used to int erpret this result as normal/abnormal . [facility] CenterErjgnlgQXWJESTUMZ1005-05-20 14:40:00 Test Item Value Reference Range Interpretation Comments Monocytes (test code = Monocytes) 8.8 2.0-12.0 [facility] CenterGzsdjdpEBDJHINFOB5191-26-68 14:40:00 Test Item Value Reference Range Interpretation Comments Segs (test code = Segs) 63.4 45.0-75.0 [facility] CenterMtavoknBRLHTWGADJ0891-43-40 14:40:00 Test Item Value Reference Range Interpretation Comments Lymphocytes (test code = Lymphocytes) 19.0 20.0-40.0 [facility] CenterLwsecpcACXSUSYZIM4198-63-61 14:40:00 Test Item Value Reference Range Interpretation Comments Eosinophils # (test code 0.5 See_Comment [A utomated message] The = Eosinophils #) system whic h generated this result tra nsmitted reference range : <=0.5. The reference r ondina was not used to int erpret this result as normal/abnormal . [facility] CenterBblgbnmUKEVSJDTXB2686-71-33 14:40:00 Test Item Value Reference Range Interpretation Comments Basophils # (test code 0.1 See_Comment [Aut omated message] The = Basophils #) system which generated this result tra nsmitted reference range : <=0.2. The reference r ondina was not used to int erpret this result as normal/abnormal . [facility] CenterKcyhcnfGUYZEHWXRK8045-24-84 14:40:00 Test Item Value Reference Range Interpretation Comments Monocytes # (test code 0.6 See_Comment [Aut omated message] The = Monocytes #) system which generated this result tra nsmitted reference range : <=0.8. The reference r ondina was not used to int erpret this result as normal/abnormal . [facility] CenterCobprqsDGFJUSGSAR3591-87-32 14:40:00 Test Item Value Reference Range Interpretation Comments Lymphocytes # (test code = Lymphocytes 1.4 1.0-5.5 #) [facility]2019-03-19 11:30:00 Test Item Value Reference Range Interpretation Comments Calcium Lvl (test code = Calcium Lvl) 8.3 8.5-10.5 [facility]2019-03-19 11:30:00 Test Item Value Reference Range Interpretation Comments Potassium Lvl (test code = Potassium 4.3 3.5-5.1 Lvl) [facility]2019-03-19 11:30:00 Test Item Value Reference Range Interpretation Comments Sodium Lvl (test code = Sodium Lvl) 143 135-145 [facility]2019-03-19 11:30:00 Test Item Value Reference Range Interpretation Comments Chloride Lvl (test code = Chloride Lvl) 108 95-109 [facility]2019-03-19 11:30:00 Test Item Value Reference Range Interpretation Comments eGFR (test code = eGFR) 105 [facility]2019-03-19 11:30:00 Test Item Value Reference Range Interpretation Comments Creatinine Lvl (test code = Creatinine 0.66 0.50-1.40 Lvl) [facility]2019-03-19 11:30:00 Test Item Value Reference Range Interpretation Comments CO2 (test code = CO2) 29 24-32 [facility]2019-03-19 11:30:00 Test Item Value Reference Range Interpretation Comments BUN (test code = BUN) 14 7-22 [facility]2019-03-19 11:30:00 Test Item Value Reference Range Interpretation Comments Glucose Lvl (test code = Glucose Lvl) 79 70-99 [facility]2019-03-19 11:30:00 Test Item Value Reference Range Interpretation Comments AGAP (test code = AGAP) 10.3 10.0-20.0 [place] 19651019-03-19 11:30:00 Test Item Value Reference Range Interpretation Comments Vanco Tr TND (test code = Vanco Tr TND) unk [place] 19651019-03-19 11:30:00 Test Item Value Reference Range Interpretation Comments Vanco Tr (test code = Vanco Tr) 12.8 [facility]2019-03-19 11:30:00 Test Item Value Reference Range Interpretation Comments Calcium Lvl (test code = Calcium Lvl) 8.3 8.5-10.5 [facility]2019-03-19 11:30:00 Test Item Value Reference Range Interpretation Comments Potassium Lvl (test code = Potassium 4.3 3.5-5.1 Lvl) [facility]2019-03-19 11:30:00 Test Item Value Reference Range Interpretation Comments Sodium Lvl (test code = Sodium Lvl) 143 135-145 [facility]2019-03-19 11:30:00 Test Item Value Reference Range Interpretation Comments Chloride Lvl (test code = Chloride Lvl) 108 95-109 [facility]2019-03-19 11:30:00 Test Item Value Reference Range Interpretation Comments eGFR (test code = eGFR) 105 [facility]2019-03-19 11:30:00 Test Item Value Reference Range Interpretation Comments Creatinine Lvl (test code = Creatinine 0.66 0.50-1.40 Lvl) [facility]2019-03-19 11:30:00 Test Item Value Reference Range Interpretation Comments CO2 (test code = CO2) 29 24-32 [facility]2019-03-19 11:30:00 Test Item Value Reference Range Interpretation Comments BUN (test code = BUN) 14 7-22 [facility]2019-03-19 11:30:00 Test Item Value Reference Range Interpretation Comments Glucose Lvl (test code = Glucose Lvl) 79 70-99 [facility]2019-03-19 11:30:00 Test Item Value Reference Range Interpretation Comments AGAP (test code = AGAP) 10.3 10.0-20.0 [place] 19651019-03-19 11:30:00 Test Item Value Reference Range Interpretation Comments Vanco Tr TND (test code = Vanco Tr TND) unk [place] 19651019-03-19 11:30:00 Test Item Value Reference Range Interpretation Comments Vanco Tr (test code = Vanco Tr) 12.8 [facility]2019-03-19 11:30:00 Test Item Value Reference Range Interpretation Comments Calcium Lvl (test code = Calcium Lvl) 8.3 8.5-10.5 [facility]2019-03-19 11:30:00 Test Item Value Reference Range Interpretation Comments Potassium Lvl (test code = Potassium 4.3 3.5-5.1 Lvl) [facility]2019-03-19 11:30:00 Test Item Value Reference Range Interpretation Comments Sodium Lvl (test code = Sodium Lvl) 143 135-145 [facility]2019-03-19 11:30:00 Test Item Value Reference Range Interpretation Comments Chloride Lvl (test code = Chloride Lvl) 108 95-109 [facility]2019-03-19 11:30:00 Test Item Value Reference Range Interpretation Comments eGFR (test code = eGFR) 105 [facility]2019-03-19 11:30:00 Test Item Value Reference Range Interpretation Comments Creatinine Lvl (test code = Creatinine 0.66 0.50-1.40 Lvl) [facility]2019-03-19 11:30:00 Test Item Value Reference Range Interpretation Comments CO2 (test code = CO2) 29 -32 [facility]2019-03-19 11:30:00 Test Item Value Reference Range Interpretation Comments BUN (test code = BUN) 14 7-22 [facility]2019-03-19 11:30:00 Test Item Value Reference Range Interpretation Comments Glucose Lvl (test code = Glucose Lvl) 79 70-99 [facility]2019-03-19 11:30:00 Test Item Value Reference Range Interpretation Comments AGAP (test code = AGAP) 10.3 10.0-20.0 [place] 19651019-03-19 11:30:00 Test Item Value Reference Range Interpretation Comments Vanco Tr TND (test code = Vanco Tr TND) unk [place] 19651019-03-19 11:30:00 Test Item Value Reference Range Interpretation Comments Vanco Tr (test code = Vanco Tr) 12.8 [facility]2019-03-19 11:30:00 Test Item Value Reference Range Interpretation Comments Calcium Lvl (test code = Calcium Lvl) 8.3 8.5-10.5 [facility]2019-03-19 11:30:00 Test Item Value Reference Range Interpretation Comments Potassium Lvl (test code = Potassium 4.3 3.5-5.1 Lvl) [facility]2019-03-19 11:30:00 Test Item Value Reference Range Interpretation Comments Sodium Lvl (test code = Sodium Lvl) 143 135-145 [facility]2019-03-19 11:30:00 Test Item Value Reference Range Interpretation Comments Chloride Lvl (test code = Chloride Lvl) 108 95-109 [facility]2019-03-19 11:30:00 Test Item Value Reference Range Interpretation Comments eGFR (test code = eGFR) 105 [facility]2019-03-19 11:30:00 Test Item Value Reference Range Interpretation Comments Creatinine Lvl (test code = Creatinine 0.66 0.50-1.40 Lvl) [facility]2019-03-19 11:30:00 Test Item Value Reference Range Interpretation Comments CO2 (test code = CO2) 29 -32 [facility] [id number] 11:30:00 Test Item Value Reference Range Interpretation Comments BUN (test code = BUN) 14 7-22 [facility] [employer] LtdannCHEM [id number] 11:30:00 Test Item Value Reference Range Interpretation Comments Glucose Lvl (test code = Glucose Lvl) 79 70-99 [facility] USJRW3519-89-19 11:30:00 Test Item Value Reference Range Interpretation Comments AGAP (test code = AGAP) 10.3 10.0-20.0 [facility] CenterTtmcocsATGYQSHHYM3429-93-56 11:30:00 Test Item Value Reference Range Interpretation Comments Vanco Tr TND (test code = Vanco Tr TND) unk [facility] CenterCfarwouQPCAKVNRPZ1228-60-65 11:30:00 Test Item Value Reference Range Interpretation Comments Vanco Tr (test code = Vanco Tr) 12.8 [facility] [employer]2019-03-18 17:35:00 Test Item Value Reference Range Interpretation Comments Troponin-I (test code no gt See_Comment [Auto mated message] The = Troponin-I) system which g enerated this result transmit garrett reference range : <=0.40. The reference r ondina was not used to interpr et this result as cassie l/abnormal. [facility] [email or web address] [id number] 17:35:00 Test Item Value Reference Range Interpretation Comments Total CK (test code = Total CK) 33 191 [facility] [email or web address] [id number] 17:35:00 Test Item Value Reference Range Interpretation Comments Troponin-I (test code no gt See_Comment [Auto mated message] The = Troponin-I) system which g enerated this result transmit garrett reference range : <=0.40. The reference r ondina was not used to interpr et this result as cassie l/abnormal. [facility] [email or web address] [id number] 17:35:00 Test Item Value Reference Range Interpretation Comments Total CK (test code = Total CK) 33 191 [facility] [email or web address] [id number] 17:35:00 Test Item Value Reference Range Interpretation Comments Troponin-I (test code no gt See_Comment [Auto mated message] The = Troponin-I) system which g enerated this result transmit garrett reference range : <=0.40. The reference r ondina was not used to interpr et this result as cassie l/abnormal. [facility] [email or web address] [id number] 17:35:00 Test Item Value Reference Range Interpretation Comments Total CK (test code = Total CK) [facility] [id number] 17:35:00 Test Item Value Reference Range Interpretation Comments Troponin-I (test code no gt See_Comment [Auto mated message] The = Troponin-I) system which g enerated this result transmit garrett reference range : <=0.40. The reference r ondina was not used to interpr et this result as cassie l/abnormal. [facility] [employer]2019-03-18 17:35:00 Test Item Value Reference Range Interpretation Comments Total CK (test code = Total CK) [facility] 12:45:00 Test Item Value Reference Range Interpretation Comments Troponin-I (test code no gt See_Comment [Auto mated message] The = Troponin-I) system which g enerated this result transmit garrett reference range : <=0.40. The reference r ondina was not used to interpr et this result as cassie l/abnormal. [facility] [employer]2019-03-18 12:45:00 Test Item Value Reference Range Interpretation Comments Total CK (test code = Total CK) [facility]esh[facility] 12:45:00 Test Item Value Reference Range Interpretation Comments Troponin-I (test code no gt See_Comment [Auto mated message] The = Troponin-I) system which g enerated this result transmit garrett reference range : <=0.40. The reference r ondina was not used to interpr et this result as cassie l/abnormal. [facility] [email or web address] [id number] 12:45:00 Test Item Value Reference Range Interpretation Comments Total CK (test code = Total CK) [facility] [id number] 12:45:00 Test Item Value Reference Range Interpretation Comments Troponin-I (test code no gt See_Comment [Auto mated message] The = Troponin-I) system which g enerated this result transmit garrett reference range : <=0.40. The reference r ondina was not used to interpr et this result as cassie l/abnormal. [facility] [id number] 12:45:00 Test Item Value Reference Range Interpretation Comments Total CK (test code = Total CK) 33 12-191 [facility] [id number] 12:45:00 Test Item Value Reference Range Interpretation Comments Troponin-I (test code no gt See_Comment [Auto mated message] The = Troponin-I) system which g enerated this result transmit garrett reference range : <=0.40. The reference r ondina was not used to interpr et this result as cassie l/abnormal. [facility] [id number] 12:45:00 Test Item Value Reference Range Interpretation Comments Total CK (test code = Total CK) 33 12-191 [facility] CenterUkgmpdgBCJRVOZQHL5921-72-52 06:11:00 Test Item Value Reference Range Interpretation Comments Platelet (test code = Platelet) 217 133-450 [facility] CenterYbjvxccWAPQODIATE8474-64-24 06:11:00 Test Item Value Reference Range Interpretation Comments RDW (test code = RDW) 18.6 11.5-14.5 [facility] CenterLjcyjyzMGDMLSVILA7329-21-08 06:11:00 Test Item Value Reference Range Interpretation Comments MCH (test code = MCH) 26.0 pg 27.0-31.0 [facility] CenterWkpwdguCKVFMDVHTP6328-98-78 06:11:00 Test Item Value Reference Range Interpretation Comments MCV (test code = MCV) 81.5 80.0-94.0 [facility] CenterLrpwgwjGMDOIOIGER8734-13-30 06:11:00 Test Item Value Reference Range Interpretation Comments MCHC (test code = MCHC) 31.9 32.0-36.0 [facility] CenterCikmsswVXZEYVQDMO4234-67-97 06:11:00 Test Item Value Reference Range Interpretation Comments RBC (test code = RBC) 3.16 4.70-6.10 [facility] CenterQwtsnkmWDJBCHGEEB4191-43-31 06:11:00 Test Item Value Reference Range Interpretation Comments Hct (test code = Hct) 25.8 42.0-54.0 [facility] CenterBrbicjxPTTHGZYWQE1651-13-85 06:11:00 Test Item Value Reference Range Interpretation Comments Hgb (test code = Hgb) 8.2 14.0-18.0 [facility] CenterNtpuytgXVSWAZFBVQ1297-67-73 06:11:00 Test Item Value Reference Range Interpretation Comments WBC (test code = WBC) 7.5 3.7-10.4 [facility] CenterNpqrtxaYLPBTBBSAM3598-55-77 06:11:00 Test Item Value Reference Range Interpretation Comments Monocytes # (test code 0.7 See_Comment [Aut omated message] The = Monocytes #) system which generated this result tra nsmitted reference range : <=0.8. The reference r ondina was not used to int erpret this result as normal/abnormal . [facility] CenterUumnurrQFBOFKJLTJ3761-14-80 06:11:00 Test Item Value Reference Range Interpretation Comments Basophils # (test code 0.1 See_Comment [Aut omated message] The = Basophils #) system which generated this result tra nsmitted reference range : <=0.2. The reference r ondina was not used to int erpret this result as normal/abnormal . [facility] CenterCjemnrgBJBZDRDIJC5151-49-11 06:11:00 Test Item Value Reference Range Interpretation Comments Eosinophils # (test code 0.4 See_Comment [A utomated message] The = Eosinophils #) system whic h generated this result tra nsmitted reference range : <=0.5. The reference r ondina was not used to int erpret this result as normal/abnormal . [facility] CenterGqqhsbhSPMOGGWLDP5402-00-12 06:11:00 Test Item Value Reference Range Interpretation Comments Lymphocytes # (test code = Lymphocytes 1.6 1.0-5.5 #) [facility] CenterCjlzkwxMZPMBNGNSX4845-47-79 06:11:00 Test Item Value Reference Range Interpretation Comments Neutrophils # (test code = Neutrophils 4.8 1.5-8.1 #) [facility] CenterMssrkasOFTQJMCJYG4656-97-56 06:11:00 Test Item Value Reference Range Interpretation Comments Basophils (test code = 1.1 See_Comment [Aut omated message] The Basophils) system which ge nerated this result tra nsmitted reference range : <=1.0. The reference r ondina was not used to int erpret this result as normal/abnormal . [facility] CenterLsvzxubSJGIHSBYLZ0667-28-05 06:11:00 Test Item Value Reference Range Interpretation Comments Eosinophils (test code = 5.2 See_Comment [A utomated message] The Eosinophils) system which ge nerated this result tra nsmitted reference range : <=4.0. The reference r ondina was not used to int erpret this result as normal/abnormal . [facility] CenterChrvvqzQDMHUKPUOM4940-60-52 06:11:00 Test Item Value Reference Range Interpretation Comments Monocytes (test code = Monocytes) 9.1 2.0-12.0 [facility] CenterXhiufhfGVEXFDFQTD6436-79-48 06:11:00 Test Item Value Reference Range Interpretation Comments Lymphocytes (test code = Lymphocytes) 21.2 20.0-40.0 [facility] CenterPmqxwypLCGJMQWBLE4035-13-36 06:11:00 Test Item Value Reference Range Interpretation Comments Segs (test code = Segs) 63.4 45.0-75.0 [place] 19651019-03-18 06:11:00 Test Item Value Reference Range Interpretation Comments Vanco Tr TND (test code = Vanco Tr 0030 1 TND) [place] 19651019-03-18 06:11:00 Test Item Value Reference Range Interpretation Comments Vanco Tr (test code = Vanco Tr) 7.3 [facility]DvmlbkqOCULAAIBFMDN2012-25-68 06:11:00 Test Item Value Reference Range Interpretation Comments AGAP (test code = AGAP) 9.1 10.0-20.0 [facility]aYcqlgdrKFIWKIXYNISU6814-09-35 06:11:00 Test Item Value Reference Range Interpretation Comments Sodium Lvl (test code = Sodium Lvl) 144 135-145 [facility]aKunumgcGSCKDOEXRAPA7317-14-15 06:11:00 Test Item Value Reference Range Interpretation Comments Chloride Lvl (test code = Chloride Lvl) 108 95-109 [facility]aWxhbaziNJXJROOEBDRF4039-70-93 06:11:00 Test Item Value Reference Range Interpretation Comments Potassium Lvl (test code = Potassium 4.1 3.5-5.1 Lvl) [facility]aNuawikbMMRXSQMHGBEP5352-38-47 06:11:00 Test Item Value Reference Range Interpretation Comments CO2 (test code = CO2) 31 24-32 [facility]aPzvrrsdQJBFNMXAFPCG2159-02-36 06:11:00 Test Item Value Reference Range Interpretation Comments BUN (test code = BUN) 15 7-22 [facility]aGwtsqlkNMOWVHXREOLS0534-30-13 06:11:00 Test Item Value Reference Range Interpretation Comments Glucose Lvl (test code = Glucose Lvl) 96 70-99 [facility]aQvzbfhzYAJKHRJVSCJO9498-12-11 06:11:00 Test Item Value Reference Range Interpretation Comments Creatinine Lvl (test code = Creatinine 0.72 0.50-1.40 Lvl) [facility]aCfznkkjGLOFABLQMTKK8723-75-48 06:11:00 Test Item Value Reference Range Interpretation Comments eGFR (test code = eGFR) 102 [facility]aTxlkijgEFNVGZEYJMRH7446-87-64 06:11:00 Test Item Value Reference Range Interpretation Comments Calcium Lvl (test code = Calcium Lvl) 8.3 8.5-10.5 [facility] CenterXcgiajmFMVQAENDFE0255-02-58 06:11:00 Test Item Value Reference Range Interpretation Comments MPV (test code = MPV) 8.0 7.4-10.4 [facility] CenterTvqwicyDDEKNUKAKS9723-19-96 06:11:00 Test Item Value Reference Range Interpretation Comments Platelet (test code = Platelet) 217 133-450 [facility] CenterVezcugwBPAKPXKIWE3109-15-54 06:11:00 Test Item Value Reference Range Interpretation Comments RDW (test code = RDW) 18.6 11.5-14.5 [facility] CenterFldqalpRWRIYTJHOA6264-51-26 06:11:00 Test Item Value Reference Range Interpretation Comments MCH (test code = MCH) 26.0 pg 27.0-31.0 [facility] CenterPdrhwgeQQICDBJRAL8730-82-86 06:11:00 Test Item Value Reference Range Interpretation Comments MCV (test code = MCV) 81.5 80.0-94.0 [facility] CenterUcalcnrMPYDCIFRSI4613-23-47 06:11:00 Test Item Value Reference Range Interpretation Comments MCHC (test code = MCHC) 31.9 32.0-36.0 [facility] CenterCnizdigJSXNBEKISX7703-76-98 06:11:00 Test Item Value Reference Range Interpretation Comments RBC (test code = RBC) 3.16 4.70-6.10 [facility] CenterNmionlyHMZFUAHAAB2775-72-85 06:11:00 Test Item Value Reference Range Interpretation Comments Hct (test code = Hct) 25.8 42.0-54.0 [facility] CenterXbxelcvVDXIMEQGIA9174-68-11 06:11:00 Test Item Value Reference Range Interpretation Comments Hgb (test code = Hgb) 8.2 14.0-18.0 [facility] CenterJfufxyxUHITKLWSJK8701-87-36 06:11:00 Test Item Value Reference Range Interpretation Comments WBC (test code = WBC) 7.5 3.7-10.4 [facility] CenterIjmftidUQLORGOBZQ2830-64-07 06:11:00 Test Item Value Reference Range Interpretation Comments Monocytes # (test code 0.7 See_Comment [Aut omated message] The = Monocytes #) system which generated this result tra nsmitted reference range : <=0.8. The reference r ondina was not used to int erpret this result as normal/abnormal . [facility] CenterKicveekLRMUQUIQRS2491-51-92 06:11:00 Test Item Value Reference Range Interpretation Comments Basophils # (test code 0.1 See_Comment [Aut omated message] The = Basophils #) system which generated this result tra nsmitted reference range : <=0.2. The reference r ondina was not used to int erpret this result as normal/abnormal . [facility] CenterFhuzernNGBQOTUSLL5624-94-43 06:11:00 Test Item Value Reference Range Interpretation Comments Eosinophils # (test code 0.4 See_Comment [A utomated message] The = Eosinophils #) system whic h generated this result tra nsmitted reference range : <=0.5. The reference r ondina was not used to int erpret this result as normal/abnormal . [facility] CenterWaalkfsLTFZTVLKWP5540-70-47 06:11:00 Test Item Value Reference Range Interpretation Comments Lymphocytes # (test code = Lymphocytes 1.6 1.0-5.5 #) [facility] CenterMozeavvLOSMYNMYIF1126-93-02 06:11:00 Test Item Value Reference Range Interpretation Comments Neutrophils # (test code = Neutrophils 4.8 1.5-8.1 #) [facility] CenterUufrlhqILXSRLGPFU0103-91-07 06:11:00 Test Item Value Reference Range Interpretation Comments Basophils (test code = 1.1 See_Comment [Aut omated message] The Basophils) system which ge nerated this result tra nsmitted reference range : <=1.0. The reference r ondina was not used to int erpret this result as normal/abnormal . [facility] CenterLgyrwwhHZLIFTXDGK6765-90-31 06:11:00 Test Item Value Reference Range Interpretation Comments Eosinophils (test code = 5.2 See_Comment [A utomated message] The Eosinophils) system which ge nerated this result tra nsmitted reference range : <=4.0. The reference r ondina was not used to int erpret this result as normal/abnormal . [facility] CenterFajalapGBWHHFMUEJ8647-16-83 06:11:00 Test Item Value Reference Range Interpretation Comments Monocytes (test code = Monocytes) 9.1 2.0-12.0 [facility] CenterCkxhfopFAQUKYEXMG2104-48-38 06:11:00 Test Item Value Reference Range Interpretation Comments Lymphocytes (test code = Lymphocytes) 21.2 20.0-40.0 [facility] CenterHyhschgLMMOGRTAIX8167-54-72 06:11:00 Test Item Value Reference Range Interpretation Comments Segs (test code = Segs) 63.4 45.0-75.0 [place] 19651019-03-18 06:11:00 Test Item Value Reference Range Interpretation Comments Vanco Tr TND (test code = Vanco Tr 0030 1 TND) [place] 19651019-03-18 06:11:00 Test Item Value Reference Range Interpretation Comments Vanco Tr (test code = Vanco Tr) 7.3 [facility]aBughckgOWREGPEOEQYK4324-69-49 06:11:00 Test Item Value Reference Range Interpretation Comments AGAP (test code = AGAP) 9.1 10.0-20.0 [facility]aYvfkbqdQGNLMZGXPQFG5495-65-96 06:11:00 Test Item Value Reference Range Interpretation Comments Sodium Lvl (test code = Sodium Lvl) 144 135-145 [facility]penaHfojtmlCHBSYQBFNAXZ4075-76-05 06:11:00 Test Item Value Reference Range Interpretation Comments Chloride Lvl (test code = Chloride Lvl) 108 95-109 [facility]aEjhgafnHNBTQCCZTWUQ9880-85-13 06:11:00 Test Item Value Reference Range Interpretation Comments Potassium Lvl (test code = Potassium 4.1 3.5-5.1 Lvl) [facility]aCmtflwlCGHARSCGWQZM8126-32-39 06:11:00 Test Item Value Reference Range Interpretation Comments CO2 (test code = CO2) 31 24-32 [facility]aXwpgqroJRBWUCYFGYIE8507-87-64 06:11:00 Test Item Value Reference Range Interpretation Comments BUN (test code = BUN) 15 7-22 [facility]penaWmlcrtwHGMVBLDTONNM3907-29-36 06:11:00 Test Item Value Reference Range Interpretation Comments Glucose Lvl (test code = Glucose Lvl) 96 70-99 [facility]penaSzjtwoqNMALFUFATZST6997-55-23 06:11:00 Test Item Value Reference Range Interpretation Comments Creatinine Lvl (test code = Creatinine 0.72 0.50-1.40 Lvl) [facility]penaItrsyfeJFCJONWIPXXM7571-81-35 06:11:00 Test Item Value Reference Range Interpretation Comments eGFR (test code = eGFR) 102 [facility]penaBvrdzvjSNMQDVGYWSYG3414-82-61 06:11:00 Test Item Value Reference Range Interpretation Comments Calcium Lvl (test code = Calcium Lvl) 8.3 8.5-10.5 [facility] CenterUcjfhtrWCJFNGZFDX6526-12-47 06:11:00 Test Item Value Reference Range Interpretation Comments MPV (test code = MPV) 8.0 7.4-10.4 [facility] CenterYzixnutLBGXRHXIWF2384-16-67 06:11:00 Test Item Value Reference Range Interpretation Comments Platelet (test code = Platelet) 217 133-450 [facility] CenterDgajhpxQPDBOHVWRU0934-08-81 06:11:00 Test Item Value Reference Range Interpretation Comments RDW (test code = RDW) 18.6 11.5-14.5 [facility] CenterIkorfikVUWFNXKODJ1492-02-43 06:11:00 Test Item Value Reference Range Interpretation Comments MCH (test code = MCH) 26.0 pg 27.0-31.0 [facility] CenterQyxmcjbFERUKVOFMD9317-24-09 06:11:00 Test Item Value Reference Range Interpretation Comments MCV (test code = MCV) 81.5 80.0-94.0 [facility] CenterEwuffzuVKJDMCVTIC7769-51-42 06:11:00 Test Item Value Reference Range Interpretation Comments MCHC (test code = MCHC) 31.9 32.0-36.0 [facility] CenterGbozymnFSDLTOTTMZ4920-72-27 06:11:00 Test Item Value Reference Range Interpretation Comments RBC (test code = RBC) 3.16 4.70-6.10 [facility] CenterOljsamqFBNVLWESIP3382-13-84 06:11:00 Test Item Value Reference Range Interpretation Comments Hct (test code = Hct) 25.8 42.0-54.0 [facility] CenterNhfkilnPHWLOCGIFC0889-46-32 06:11:00 Test Item Value Reference Range Interpretation Comments Hgb (test code = Hgb) 8.2 14.0-18.0 [facility] CenterFkvitynQMGFLNKCOW8807-60-61 06:11:00 Test Item Value Reference Range Interpretation Comments WBC (test code = WBC) 7.5 3.7-10.4 [facility] CenterTbgfauuBFEPHGPESL4976-06-58 06:11:00 Test Item Value Reference Range Interpretation Comments Monocytes # (test code 0.7 See_Comment [Aut omated message] The = Monocytes #) system which generated this result tra nsmitted reference range : <=0.8. The reference r ondina was not used to int erpret this result as normal/abnormal . [facility] CenterFmncmsmBZIPYLPUUH3369-82-93 06:11:00 Test Item Value Reference Range Interpretation Comments Basophils # (test code 0.1 See_Comment [Aut omated message] The = Basophils #) system which generated this result tra nsmitted reference range : <=0.2. The reference r ondina was not used to int erpret this result as normal/abnormal . [facility] CenterEeuqhgmPJFNRJKXLE0521-07-98 06:11:00 Test Item Value Reference Range Interpretation Comments Eosinophils # (test code 0.4 See_Comment [A utomated message] The = Eosinophils #) system whic h generated this result tra nsmitted reference range : <=0.5. The reference r ondina was not used to int erpret this result as normal/abnormal . [facility] CenterDaswlkgGZKGTFINHJ7950-93-32 06:11:00 Test Item Value Reference Range Interpretation Comments Lymphocytes # (test code = Lymphocytes 1.6 1.0-5.5 #) [facility] CenterUnwzrsqZOPGICBTEY8988-60-18 06:11:00 Test Item Value Reference Range Interpretation Comments Neutrophils # (test code = Neutrophils 4.8 1.5-8.1 #) [facility] CenterVoaotkmUFXCAUJWTU1380-26-36 06:11:00 Test Item Value Reference Range Interpretation Comments Basophils (test code = 1.1 See_Comment [Aut omated message] The Basophils) system which ge nerated this result tra nsmitted reference range : <=1.0. The reference r ondina was not used to int erpret this result as normal/abnormal . [facility] CenterOqgyedaQRPYUZEFFT5752-59-56 06:11:00 Test Item Value Reference Range Interpretation Comments Eosinophils (test code = 5.2 See_Comment [A utomated message] The Eosinophils) system which ge nerated this result tra nsmitted reference range : <=4.0. The reference r ondina was not used to int erpret this result as normal/abnormal . [facility] CenterGcsssxnJEZJJBGJVH1376-89-15 06:11:00 Test Item Value Reference Range Interpretation Comments Monocytes (test code = Monocytes) 9.1 2.0-12.0 [facility] CenterPtotjxeUUHRDKBAYB6353-88-04 06:11:00 Test Item Value Reference Range Interpretation Comments Lymphocytes (test code = Lymphocytes) 21.2 20.0-40.0 [facility] CenterXaadqqoZSFGUNGHKY6292-13-69 06:11:00 Test Item Value Reference Range Interpretation Comments Segs (test code = Segs) 63.4 45.0-75.0 [place] 19651019-03-18 06:11:00 Test Item Value Reference Range Interpretation Comments Vanco Tr TND (test code = Vanco Tr 0030 1 TND) [place] 19651019-03-18 06:11:00 Test Item Value Reference Range Interpretation Comments Vanco Tr (test code = Vanco Tr) 7.3 [facility]aFxgqsxqRLLVIVZMFXYC8465-63-16 06:11:00 Test Item Value Reference Range Interpretation Comments AGAP (test code = AGAP) 9.1 10.0-20.0 [facility]aSulwavuEHSMGVHHTCCJ3336-94-45 06:11:00 Test Item Value Reference Range Interpretation Comments Sodium Lvl (test code = Sodium Lvl) 144 135-145 [facility]aMfvrqriFUJWRHQWGRZO5528-60-72 06:11:00 Test Item Value Reference Range Interpretation Comments Chloride Lvl (test code = Chloride Lvl) 108 95-109 [facility]penaDriadytFKRFXQIRIZWR6422-40-35 06:11:00 Test Item Value Reference Range Interpretation Comments Potassium Lvl (test code = Potassium 4.1 3.5-5.1 Lvl) [facility]penaNizvgurPBNSOILCAUMR9409-00-30 06:11:00 Test Item Value Reference Range Interpretation Comments CO2 (test code = CO2) 31 24-32 [facility]aFfjsqenHYGPAUSSGIQT6087-43-80 06:11:00 Test Item Value Reference Range Interpretation Comments BUN (test code = BUN) 15 7-22 [facility]aGegjqjjZOLXJRSUZAMS1329-38-34 06:11:00 Test Item Value Reference Range Interpretation Comments Glucose Lvl (test code = Glucose Lvl) 96 70-99 [facility]aVzqqmlgSIKVKCJXJBIP6478-82-09 06:11:00 Test Item Value Reference Range Interpretation Comments Creatinine Lvl (test code = Creatinine 0.72 0.50-1.40 Lvl) [facility]aUbbtsfaHWUXIGIWCYGE0442-54-41 06:11:00 Test Item Value Reference Range Interpretation Comments eGFR (test code = eGFR) 102 [facility]penaHymshkgNSKUDWOJRPPM4067-91-41 06:11:00 Test Item Value Reference Range Interpretation Comments Calcium Lvl (test code = Calcium Lvl) 8.3 8.5-10.5 [facility] CenterMvewkaqEHYOVZQPUW1660-67-00 06:11:00 Test Item Value Reference Range Interpretation Comments MPV (test code = MPV) 8.0 7.4-10.4 [facility] CenterRkizmmsPCPGFTKDPK9954-40-76 06:11:00 Test Item Value Reference Range Interpretation Comments Platelet (test code = Platelet) 217 133-450 [facility] CenterCexxfhvOWGQSBGOYC8421-64-35 06:11:00 Test Item Value Reference Range Interpretation Comments RDW (test code = RDW) 18.6 11.5-14.5 [facility] CenterYmzokxpIUUBLQSWUZ0465-97-28 06:11:00 Test Item Value Reference Range Interpretation Comments MCH (test code = MCH) 26.0 pg 27.0-31.0 [facility] CenterNanihcuKATOZBUCFG2762-31-20 06:11:00 Test Item Value Reference Range Interpretation Comments MCV (test code = MCV) 81.5 80.0-94.0 [facility] CenterFtbqweoXTKBCHWBLX4000-05-67 06:11:00 Test Item Value Reference Range Interpretation Comments MCHC (test code = MCHC) 31.9 32.0-36.0 [facility] CenterEremetwQTVRCXWRSG6256-55-25 06:11:00 Test Item Value Reference Range Interpretation Comments RBC (test code = RBC) 3.16 4.70-6.10 [facility] CenterWqgbyidSKXEXOTSQR5624-10-29 06:11:00 Test Item Value Reference Range Interpretation Comments Hct (test code = Hct) 25.8 42.0-54.0 [facility] CenterHedfdrrBSRKUHXOTS2849-86-37 06:11:00 Test Item Value Reference Range Interpretation Comments Hgb (test code = Hgb) 8.2 14.0-18.0 [facility] CenterJeivtdpMOEGNIYHOB1772-69-17 06:11:00 Test Item Value Reference Range Interpretation Comments WBC (test code = WBC) 7.5 3.7-10.4 [facility] CenterFybhxfuPPMHKWIWVP6682-40-79 06:11:00 Test Item Value Reference Range Interpretation Comments Monocytes # (test code 0.7 See_Comment [Aut omated message] The = Monocytes #) system which generated this result tra nsmitted reference range : <=0.8. The reference r ondina was not used to int erpret this result as normal/abnormal . [facility] CenterUbvsyokSQJKFMKYHQ2674-28-22 06:11:00 Test Item Value Reference Range Interpretation Comments Basophils # (test code 0.1 See_Comment [Aut omated message] The = Basophils #) system which generated this result tra nsmitted reference range : <=0.2. The reference r ondina was not used to int erpret this result as normal/abnormal . [facility] CenterMomnbjsYZBSYUMIIB5396-38-38 06:11:00 Test Item Value Reference Range Interpretation Comments Eosinophils # (test code 0.4 See_Comment [A utomated message] The = Eosinophils #) system whic h generated this result tra nsmitted reference range : <=0.5. The reference r ondina was not used to int erpret this result as normal/abnormal . [facility] CenterJgsrjsePMTATZNBZR0884-92-38 06:11:00 Test Item Value Reference Range Interpretation Comments Lymphocytes # (test code = Lymphocytes 1.6 1.0-5.5 #) [facility] CenterNuttvipSCAWHODGFP0680-47-58 06:11:00 Test Item Value Reference Range Interpretation Comments Neutrophils # (test code = Neutrophils 4.8 1.5-8.1 #) [facility] CenterCourbvmTWDWHBKBQT6806-45-85 06:11:00 Test Item Value Reference Range Interpretation Comments Basophils (test code = 1.1 See_Comment [Aut omated message] The Basophils) system which ge nerated this result tra nsmitted reference range : <=1.0. The reference r ondina was not used to int erpret this result as normal/abnormal . [facility] CenterVnfmyeoWMRCOQRKJD5123-41-99 06:11:00 Test Item Value Reference Range Interpretation Comments Eosinophils (test code = 5.2 See_Comment [A utomated message] The Eosinophils) system which ge nerated this result tra nsmitted reference range : <=4.0. The reference r ondina was not used to int erpret this result as normal/abnormal . [facility] CenterGigtsqcXRBHYDVBRR8961-85-95 06:11:00 Test Item Value Reference Range Interpretation Comments Monocytes (test code = Monocytes) 9.1 2.0-12.0 [facility] CenterHhkkrxzSZEIICWQNC4749-71-23 06:11:00 Test Item Value Reference Range Interpretation Comments Lymphocytes (test code = Lymphocytes) 21.2 20.0-40.0 [facility] CenterKfkrbnrZBVVNAJGZQ3455-46-39 06:11:00 Test Item Value Reference Range Interpretation Comments Segs (test code = Segs) 63.4 45.0-75.0 [place] 19651019-03-18 06:11:00 Test Item Value Reference Range Interpretation Comments Vanco Tr TND (test code = Vanco Tr 0030 1 TND) [place] 19651019-03-18 06:11:00 Test Item Value Reference Range Interpretation Comments Vanco Tr (test code = Vanco Tr) 7.3 [facility]aWbzfaptQDAISQLJPXDI6658-86-13 06:11:00 Test Item Value Reference Range Interpretation Comments AGAP (test code = AGAP) 9.1 10.0-20.0 [facility]aXozxtycPKQKJXGIKOPX3699-86-63 06:11:00 Test Item Value Reference Range Interpretation Comments Sodium Lvl (test code = Sodium Lvl) 144 135-145 [facility]penaJlkjevbTTIKNTBBJBVS1817-89-30 06:11:00 Test Item Value Reference Range Interpretation Comments Chloride Lvl (test code = Chloride Lvl) 108 95-109 [facility]aNsjcrqpQTAXHMKWKPUL7040-14-19 06:11:00 Test Item Value Reference Range Interpretation Comments Potassium Lvl (test code = Potassium 4.1 3.5-5.1 Lvl) [facility]aPscbxlwLBFCSQWZOYPX7229-70-90 06:11:00 Test Item Value Reference Range Interpretation Comments CO2 (test code = CO2) 31 24-32 [facility]aDqqmkefAUDHXFSJHNCT1831-62-74 06:11:00 Test Item Value Reference Range Interpretation Comments BUN (test code = BUN) 15 7-22 [facility]aQcriylwBRRWDVKXSVNP2806-34-07 06:11:00 Test Item Value Reference Range Interpretation Comments Glucose Lvl (test code = Glucose Lvl) 96 70-99 [facility]penaDugljbiWTCUBVZNKSYU3999-17-33 06:11:00 Test Item Value Reference Range Interpretation Comments Creatinine Lvl (test code = Creatinine 0.72 0.50-1.40 Lvl) [facility]aScpqdvsGKHDTZOXFDXV1837-10-84 06:11:00 Test Item Value Reference Range Interpretation Comments eGFR (test code = eGFR) 102 [facility]penaKjzfgniFIKHUFPVQEHV5882-70-44 06:11:00 Test Item Value Reference Range Interpretation Comments Calcium Lvl (test code = Calcium Lvl) 8.3 8.5-10.5 [facility]LorliaaRVCLEVECCT5710-76-01 06:11:00 Test Item Value Reference Range Interpretation Comments MPV (test code = MPV) 8.0 7.4-10.4 [facility]2019-03-17 10:50:00 Test Item Value Reference Range Interpretation Comments Magnesium Lvl (test code = Magnesium 1.8 1.8-2.4 Lvl) [facility]2019-03-17 10:50:00 Test Item Value Reference Range Interpretation Comments Phosphorus (test code = Phosphorus) 3.3 2.5-4.5 [facility]DunggcsTISSWDMSZDRD5820-71-45 10:50:00 Test Item Value Reference Range Interpretation Comments AGAP (test code = AGAP) 9.9 10.0-20.0 [facility]aIavlsnhWJJYPQMCEGZE7639-56-70 10:50:00 Test Item Value Reference Range Interpretation Comments Calcium Lvl (test code = Calcium Lvl) 7.9 8.5-10.5 [facility]aJidckmeKQADCFTWTOQY8368-16-74 10:50:00 Test Item Value Reference Range Interpretation Comments eGFR (test code = eGFR) 101 [facility]aPhegzdlFVNVKAOUGTMA8248-19-50 10:50:00 Test Item Value Reference Range Interpretation Comments Creatinine Lvl (test code = Creatinine 0.72 0.50-1.40 Lvl) [facility]aHtuxtkfCRZPXYYHYWNL6252-50-24 10:50:00 Test Item Value Reference Range Interpretation Comments Sodium Lvl (test code = Sodium Lvl) 143 135-145 [facility]aBvskuecHQZTHKCXYUDI6859-78-35 10:50:00 Test Item Value Reference Range Interpretation Comments Potassium Lvl (test code = Potassium 3.9 3.5-5.1 Lvl) [facility]aClkurxpIOOUKUQNKPIH0059-34-80 10:50:00 Test Item Value Reference Range Interpretation Comments Chloride Lvl (test code = Chloride Lvl) 109 95-109 [facility]aHsalihiPLVFZEYBFYNB4419-67-03 10:50:00 Test Item Value Reference Range Interpretation Comments BUN (test code = BUN) 15 7-22 [facility]aJmemupgAZNWCLJHPAUU0539-63-65 10:50:00 Test Item Value Reference Range Interpretation Comments CO2 (test code = CO2) 28 24-32 [facility]aLrszszgECHVECKULBGU1305-86-93 10:50:00 Test Item Value Reference Range Interpretation Comments Glucose Lvl (test code = Glucose Lvl) 121 70-99 [facility] CenterXrguzqsAMZDVLGSEW2282-77-32 10:50:00 Test Item Value Reference Range Interpretation Comments Basophils # (test code 0.1 See_Comment [Aut omated message] The = Basophils #) system which generated this result tra nsmitted reference range : <=0.2. The reference r ondina was not used to int erpret this result as normal/abnormal . [facility] CenterBcmwsxsVGBOJQDFKZ9340-19-71 10:50:00 Test Item Value Reference Range Interpretation Comments Neutrophils # (test code = Neutrophils 4.6 1.5-8.1 #) [facility] CenterDaxbuqkTTXFGNGBDJ9628-19-70 10:50:00 Test Item Value Reference Range Interpretation Comments Lymphocytes # (test code = Lymphocytes 1.5 1.0-5.5 #) [facility] CenterLzvyvreLZTFELMUVG5685-72-66 10:50:00 Test Item Value Reference Range Interpretation Comments Lymphocytes (test code = Lymphocytes) 22.0 20.0-40.0 [facility] CenterSfsryjvPJZDJYNOGD9535-47-52 10:50:00 Test Item Value Reference Range Interpretation Comments Monocytes (test code = Monocytes) 6.9 2.0-12.0 [facility] CenterQmmmwjoJAJLQXHFSP6083-11-75 10:50:00 Test Item Value Reference Range Interpretation Comments Basophils (test code = 0.7 See_Comment [Aut omated message] The Basophils) system which ge nerated this result tra nsmitted reference range : <=1.0. The reference r ondina was not used to int erpret this result as normal/abnormal . [facility] CenterYlatfzpZNDSUFAGVX3341-92-14 10:50:00 Test Item Value Reference Range Interpretation Comments Eosinophils (test code = 4.5 See_Comment [A utomated message] The Eosinophils) system which ge nerated this result tra nsmitted reference range : <=4.0. The reference r ondina was not used to int erpret this result as normal/abnormal . [facility] CenterGqjadvdEWTIRFMRGF2640-77-35 10:50:00 Test Item Value Reference Range Interpretation Comments Monocytes # (test code 0.5 See_Comment [Aut omated message] The = Monocytes #) system which generated this result tra nsmitted reference range : <=0.8. The reference r ondina was not used to int erpret this result as normal/abnormal . [facility] CenterTnwjakcVNNLWKSHPF9774-97-94 10:50:00 Test Item Value Reference Range Interpretation Comments Eosinophils # (test code 0.3 See_Comment [A utomated message] The = Eosinophils #) system whic h generated this result tra nsmitted reference range : <=0.5. The reference r ondina was not used to int erpret this result as normal/abnormal . [facility] CenterLigoqgdXRZMCVZRYY8268-67-58 10:50:00 Test Item Value Reference Range Interpretation Comments Segs (test code = Segs) 65.9 45.0-75.0 [facility] CenterJiqwuegSGWKVFBMVS5520-41-84 10:50:00 Test Item Value Reference Range Interpretation Comments MCH (test code = MCH) 26.3 pg 27.0-31.0 [facility] CenterPfojeflPNQFYLTPWZ8450-29-17 10:50:00 Test Item Value Reference Range Interpretation Comments MCHC (test code = MCHC) 32.2 32.0-36.0 [facility] CenterSqifvwsODWNQKXJTA2755-02-88 10:50:00 Test Item Value Reference Range Interpretation Comments Hct (test code = Hct) 24.2 42.0-54.0 [facility] CenterBrgdkblLXPLNYNRSN2679-46-83 10:50:00 Test Item Value Reference Range Interpretation Comments MCV (test code = MCV) 81.7 80.0-94.0 [facility] CenterFetvjyoBVGKXJXTQC4910-23-92 10:50:00 Test Item Value Reference Range Interpretation Comments Platelet (test code = Platelet) 200 133-450 [facility] CenterKtvejnsPMPSRXEDFG0938-93-38 10:50:00 Test Item Value Reference Range Interpretation Comments RDW (test code = RDW) 18.4 11.5-14.5 [facility] CenterJhojwreSPYCRFWSBH3793-87-46 10:50:00 Test Item Value Reference Range Interpretation Comments MPV (test code = MPV) 8.2 7.4-10.4 [facility] CenterAtcqahgVEVFFOBEYI1193-63-01 10:50:00 Test Item Value Reference Range Interpretation Comments RBC (test code = RBC) 2.96 4.70-6.10 [facility] CenterUvqpjbtDNZXHWPMFG6321-72-38 10:50:00 Test Item Value Reference Range Interpretation Comments Hgb (test code = Hgb) 7.8 14.0-18.0 [facility] CenterNxnlzgyDQFKATYKCP1742-94-49 10:50:00 Test Item Value Reference Range Interpretation Comments WBC (test code = WBC) 7.0 3.7-10.4 [place] 19651019-03-17 10:50:00 Test Item Value Reference Range Interpretation Comments Vanco Tr (test code = Vanco Tr) 21.8 [place] 19651019-03-17 10:50:00 Test Item Value Reference Range Interpretation Comments Vanco Tr TND (test code = Vanco Tr TND) [facility] KHROO6218-39-39 10:50:00 Test Item Value Reference Range Interpretation Comments Magnesium Lvl (test code = Magnesium 1.8 1.8-2.4 Lvl) [facility]CHE[facility] IBJMC2462-98-72 10:50:00 Test Item Value Reference Range Interpretation Comments Phosphorus (test code = Phosphorus) 3.3 2.5-4.5 [facility]penaIwiughhAOAQLLTWZWJM7442-33-85 10:50:00 Test Item Value Reference Range Interpretation Comments AGAP (test code = AGAP) 9.9 10.0-20.0 [facility]aHfrifssZLRGFAHNCSIY8000-28-19 10:50:00 Test Item Value Reference Range Interpretation Comments Calcium Lvl (test code = Calcium Lvl) 7.9 8.5-10.5 [facility]aSpkxeplXUNMRWFLYGMB3366-08-55 10:50:00 Test Item Value Reference Range Interpretation Comments eGFR (test code = eGFR) 101 [facility]aHgfshzrAEZJDXPYBPFE0244-26-35 10:50:00 Test Item Value Reference Range Interpretation Comments Creatinine Lvl (test code = Creatinine 0.72 0.50-1.40 Lvl) [facility]aGvnezyqOFTJYAGLDXFE3717-14-68 10:50:00 Test Item Value Reference Range Interpretation Comments Sodium Lvl (test code = Sodium Lvl) 143 135-145 [facility]aPplzzzeEPDRXCWEEITO0947-82-23 10:50:00 Test Item Value Reference Range Interpretation Comments Potassium Lvl (test code = Potassium 3.9 3.5-5.1 Lvl) [facility]aBwwojbuUBDXHSDCWGYR7591-06-07 10:50:00 Test Item Value Reference Range Interpretation Comments Chloride Lvl (test code = Chloride Lvl) 109 95-109 [facility]aVaaaxcxXWDLPXOHDULV8660-84-51 10:50:00 Test Item Value Reference Range Interpretation Comments BUN (test code = BUN) 15 7-22 [facility]aBmbaelzBENJDOQPTUWS1258-57-46 10:50:00 Test Item Value Reference Range Interpretation Comments CO2 (test code = CO2) 28 24-32 [facility]penaZgdremhYFDYQLQKCABC1006-27-38 10:50:00 Test Item Value Reference Range Interpretation Comments Glucose Lvl (test code = Glucose Lvl) 121 70-99 [facility] CenterSqwbryoDDVLHGEYPE5049-10-69 10:50:00 Test Item Value Reference Range Interpretation Comments Basophils # (test code 0.1 See_Comment [Aut omated message] The = Basophils #) system which generated this result tra nsmitted reference range : <=0.2. The reference r ondina was not used to int erpret this result as normal/abnormal . [facility] CenterOliurqxJIZPOCNSIH9702-12-42 10:50:00 Test Item Value Reference Range Interpretation Comments Neutrophils # (test code = Neutrophils 4.6 1.5-8.1 #) [facility] CenterIalxijcMIRTUIPKNM3511-42-64 10:50:00 Test Item Value Reference Range Interpretation Comments Lymphocytes # (test code = Lymphocytes 1.5 1.0-5.5 #) [facility] CenterNntmncwYABUHQYKXF2940-34-86 10:50:00 Test Item Value Reference Range Interpretation Comments Lymphocytes (test code = Lymphocytes) 22.0 20.0-40.0 [facility] CenterYeedcxyEWQRFDYTTD8769-22-94 10:50:00 Test Item Value Reference Range Interpretation Comments Monocytes (test code = Monocytes) 6.9 2.0-12.0 [facility] CenterXsbzcqsNSDJWZONEQ2135-67-45 10:50:00 Test Item Value Reference Range Interpretation Comments Basophils (test code = 0.7 See_Comment [Aut omated message] The Basophils) system which ge nerated this result tra nsmitted reference range : <=1.0. The reference r ondina was not used to int erpret this result as normal/abnormal . [facility] CenterCjmnvtoYKJPJCECRQ9523-22-11 10:50:00 Test Item Value Reference Range Interpretation Comments Eosinophils (test code = 4.5 See_Comment [A utomated message] The Eosinophils) system which ge nerated this result tra nsmitted reference range : <=4.0. The reference r ondina was not used to int erpret this result as normal/abnormal . [facility] CenterPekerrkJUANJVXHWJ3458-50-00 10:50:00 Test Item Value Reference Range Interpretation Comments Monocytes # (test code 0.5 See_Comment [Aut omated message] The = Monocytes #) system which generated this result tra nsmitted reference range : <=0.8. The reference r ondina was not used to int erpret this result as normal/abnormal . [facility] CenterHhkokqbFHKHNZKXCV3102-31-39 10:50:00 Test Item Value Reference Range Interpretation Comments Eosinophils # (test code 0.3 See_Comment [A utomated message] The = Eosinophils #) system whic h generated this result tra nsmitted reference range : <=0.5. The reference r ondina was not used to int erpret this result as normal/abnormal . [facility] CenterEjcnbrlYNWZNFORRW0192-86-94 10:50:00 Test Item Value Reference Range Interpretation Comments Segs (test code = Segs) 65.9 45.0-75.0 [facility] CenterFzgmsumXTABHSOZZZ0428-68-42 10:50:00 Test Item Value Reference Range Interpretation Comments MCH (test code = MCH) 26.3 pg 27.0-31.0 [facility] CenterAkmxujyIPQPOMKAYR3099-54-12 10:50:00 Test Item Value Reference Range Interpretation Comments MCHC (test code = MCHC) 32.2 32.0-36.0 [facility] CenterKqdsiksDPCPJLBSUD4541-94-15 10:50:00 Test Item Value Reference Range Interpretation Comments Hct (test code = Hct) 24.2 42.0-54.0 [facility] CenterOxoqxxyKQATMQGHJC0285-37-38 10:50:00 Test Item Value Reference Range Interpretation Comments MCV (test code = MCV) 81.7 80.0-94.0 [facility]VurqpjvKYTKLVPPXF6127-22-87 10:50:00 Test Item Value Reference Range Interpretation Comments Platelet (test code = Platelet) 200 133-450 [facility] CenterBdbuzoeKSFQMDSLFN7764-91-23 10:50:00 Test Item Value Reference Range Interpretation Comments RDW (test code = RDW) 18.4 11.5-14.5 [facility] CenterVcmpndjKHYPUHSJXJ9209-18-35 10:50:00 Test Item Value Reference Range Interpretation Comments MPV (test code = MPV) 8.2 7.4-10.4 [facility] CenterDpilsdoEGKGCSEKAB7033-70-21 10:50:00 Test Item Value Reference Range Interpretation Comments RBC (test code = RBC) 2.96 4.70-6.10 [facility] CenterAcxrfhxXTINANDGGG9461-20-01 10:50:00 Test Item Value Reference Range Interpretation Comments Hgb (test code = Hgb) 7.8 14.0-18.0 [facility] HospitalKapzlsxAPPGWAMBJK1661-03-05 10:50:00 Test Item Value Reference Range Interpretation Comments WBC (test code = WBC) 7.0 3.7-10.4 [facility] HospitalFfkgimlPGPYAKGMFW2208-87-81 10:50:00 Test Item Value Reference Range Interpretation Comments Vanco Tr (test code = Vanco Tr) 21.8 [facility] HospitalUyrctmkOACJIMMREM8235-08-62 10:50:00 Test Item Value Reference Range Interpretation Comments Vanco Tr TND (test code = Vanco Tr TND) [facility]annCHEM YFEAM7804-84-61 10:50:00 Test Item Value Reference Range Interpretation Comments Magnesium Lvl (test code = Magnesium 1.8 1.8-2.4 Lvl) [facility]annCHEM QBWDK4818-33-71 10:50:00 Test Item Value Reference Range Interpretation Comments Phosphorus (test code = Phosphorus) 3.3 2.5-4.5 [facility] CenterYhwymstTCTJSLUEKFEZ4954-33-53 10:50:00 Test Item Value Reference Range Interpretation Comments AGAP (test code = AGAP) 9.9 10.0-20.0 [facility] CenterAxmifnsTWIGAEJMTPXJ3528-06-25 10:50:00 Test Item Value Reference Range Interpretation Comments Calcium Lvl (test code = Calcium Lvl) 7.9 8.5-10.5 [facility]aXevqvaoPFAGDPOVGHAM5865-37-60 10:50:00 Test Item Value Reference Range Interpretation Comments eGFR (test code = eGFR) 101 [facility]aFvprgcgNFXZUQVJYEMU0047-60-63 10:50:00 Test Item Value Reference Range Interpretation Comments Creatinine Lvl (test code = Creatinine 0.72 0.50-1.40 Lvl) [facility]aEeovfizMDNNPGRMNYXL5848-77-26 10:50:00 Test Item Value Reference Range Interpretation Comments Sodium Lvl (test code = Sodium Lvl) 143 135-145 [facility]penaJaatnohYLUYSODUAAVX2619-68-94 10:50:00 Test Item Value Reference Range Interpretation Comments Potassium Lvl (test code = Potassium 3.9 3.5-5.1 Lvl) [facility]aVywihpfHSVZEYHTJMKN5923-30-04 10:50:00 Test Item Value Reference Range Interpretation Comments Chloride Lvl (test code = Chloride Lvl) 109 95-109 [facility]aXugtnorOVBTSNFKREOK0580-48-64 10:50:00 Test Item Value Reference Range Interpretation Comments BUN (test code = BUN) 15 7-22 [facility]aFfcbuaiCOLRZWHHKKMW1294-99-30 10:50:00 Test Item Value Reference Range Interpretation Comments CO2 (test code = CO2) 28 24-32 [facility]aHnuqbwcYNLVLHJETXNE5574-84-82 10:50:00 Test Item Value Reference Range Interpretation Comments Glucose Lvl (test code = Glucose Lvl) 121 70-99 [facility] CenterAudalgiMTQMSVINNZ9438-66-31 10:50:00 Test Item Value Reference Range Interpretation Comments Basophils # (test code 0.1 See_Comment [Aut omated message] The = Basophils #) system which generated this result tra nsmitted reference range : <=0.2. The reference r ondina was not used to int erpret this result as normal/abnormal . [facility] CenterDkvmicpCLHDWPSBIV8778-53-29 10:50:00 Test Item Value Reference Range Interpretation Comments Neutrophils # (test code = Neutrophils 4.6 1.5-8.1 #) [facility] CenterFbvzwgwEEMYGTJINN8779-93-65 10:50:00 Test Item Value Reference Range Interpretation Comments Lymphocytes # (test code = Lymphocytes 1.5 1.0-5.5 #) [facility] CenterYqndolyKRIDBRSTDZ3731-30-19 10:50:00 Test Item Value Reference Range Interpretation Comments Lymphocytes (test code = Lymphocytes) 22.0 20.0-40.0 [facility] CenterUcoktksIWMAXMVMCP0925-65-61 10:50:00 Test Item Value Reference Range Interpretation Comments Monocytes (test code = Monocytes) 6.9 2.0-12.0 [facility] CenterDbcluqsSQMCPMDEXJ3038-80-92 10:50:00 Test Item Value Reference Range Interpretation Comments Basophils (test code = 0.7 See_Comment [Aut omated message] The Basophils) system which ge nerated this result tra nsmitted reference range : <=1.0. The reference r ondina was not used to int erpret this result as normal/abnormal . [facility] CenterAaioeoxSILOYKGLJX5623-08-88 10:50:00 Test Item Value Reference Range Interpretation Comments Eosinophils (test code = 4.5 See_Comment [A utomated message] The Eosinophils) system which ge nerated this result tra nsmitted reference range : <=4.0. The reference r ondina was not used to int erpret this result as normal/abnormal . [facility] CenterGdiwxcjJHUUTOMRBS0631-13-64 10:50:00 Test Item Value Reference Range Interpretation Comments Monocytes # (test code 0.5 See_Comment [Aut omated message] The = Monocytes #) system which generated this result tra nsmitted reference range : <=0.8. The reference r ondina was not used to int erpret this result as normal/abnormal . [facility] CenterVzbshtjOTOZKQNVKC5576-16-43 10:50:00 Test Item Value Reference Range Interpretation Comments Eosinophils # (test code 0.3 See_Comment [A utomated message] The = Eosinophils #) system whic h generated this result tra nsmitted reference range : <=0.5. The reference r ondina was not used to int erpret this result as normal/abnormal . [facility] CenterZfafbndDZJLBNABAH1669-83-77 10:50:00 Test Item Value Reference Range Interpretation Comments Segs (test code = Segs) 65.9 45.0-75.0 [facility] CenterDskrhnyITEFZAKDBA7035-22-90 10:50:00 Test Item Value Reference Range Interpretation Comments MCH (test code = MCH) 26.3 pg 27.0-31.0 [facility] CenterOzghjewLSFFKQIRAA1889-65-65 10:50:00 Test Item Value Reference Range Interpretation Comments MCHC (test code = MCHC) 32.2 32.0-36.0 [facility] CenterOjnjpiiZIKUITQXNQ1416-00-74 10:50:00 Test Item Value Reference Range Interpretation Comments Hct (test code = Hct) 24.2 42.0-54.0 [facility] CenterYvbypqyPAPDHAMTWX1663-04-72 10:50:00 Test Item Value Reference Range Interpretation Comments MCV (test code = MCV) 81.7 80.0-94.0 [facility] CenterSvtjfdxRANZOJAFWZ7718-83-98 10:50:00 Test Item Value Reference Range Interpretation Comments Platelet (test code = Platelet) 200 133-450 [facility] CenterAdeavdmFOFYXCLUKW5002-24-52 10:50:00 Test Item Value Reference Range Interpretation Comments RDW (test code = RDW) 18.4 11.5-14.5 [facility] CenterVgtcbgrLVKVTXCGCB3215-14-53 10:50:00 Test Item Value Reference Range Interpretation Comments MPV (test code = MPV) 8.2 7.4-10.4 [facility] CenterDpcfdraQILMYJGWWV6441-85-36 10:50:00 Test Item Value Reference Range Interpretation Comments RBC (test code = RBC) 2.96 4.70-6.10 [facility] CenterYrwtfyxLBWSPPWQGV7376-17-92 10:50:00 Test Item Value Reference Range Interpretation Comments Hgb (test code = Hgb) 7.8 14.0-18.0 [facility] CenterKpeqznzFRMSTXJTJR2532-67-25 10:50:00 Test Item Value Reference Range Interpretation Comments WBC (test code = WBC) 7.0 3.7-10.4 [facility]PswargeXKCDKOMRRH5701-69-23 10:50:00 Test Item Value Reference Range Interpretation Comments Vanco Tr (test code = Vanco Tr) 21.8 [facility] HospitalLnzypdjCUWKAPRUEO6190-17-67 10:50:00 Test Item Value Reference Range Interpretation Comments Vanco Tr TND (test code = Vanco Tr TND) unk [facility]2019-03-17 10:50:00 Test Item Value Reference Range Interpretation Comments Magnesium Lvl (test code = Magnesium 1.8 1.8-2.4 Lvl) [facility]2019-03-17 10:50:00 Test Item Value Reference Range Interpretation Comments Phosphorus (test code = Phosphorus) 3.3 2.5-4.5 [facility]aMtoasxzHAGEWPRYCHJY2671-40-92 10:50:00 Test Item Value Reference Range Interpretation Comments AGAP (test code = AGAP) 9.9 10.0-20.0 [facility]aGtbuupwUVXJIYEBWXBT6922-59-34 10:50:00 Test Item Value Reference Range Interpretation Comments Calcium Lvl (test code = Calcium Lvl) 7.9 8.5-10.5 [facility]aKsdnrivDWEHJXMZXQGZ7321-99-30 10:50:00 Test Item Value Reference Range Interpretation Comments eGFR (test code = eGFR) 101 [facility]aNsdvvyaRJGNWFBMOTQF0335-28-18 10:50:00 Test Item Value Reference Range Interpretation Comments Creatinine Lvl (test code = Creatinine 0.72 0.50-1.40 Lvl) [facility]aBaisaodRYYARRNKUGWA3236-59-01 10:50:00 Test Item Value Reference Range Interpretation Comments Sodium Lvl (test code = Sodium Lvl) 143 135-145 [facility]aEiqpdhiAPMNUBXHMESI4630-44-82 10:50:00 Test Item Value Reference Range Interpretation Comments Potassium Lvl (test code = Potassium 3.9 3.5-5.1 Lvl) [facility]aEpxhvurKQUGQCHDSQLN7776-45-89 10:50:00 Test Item Value Reference Range Interpretation Comments Chloride Lvl (test code = Chloride Lvl) 109 95-109 [facility]aWmwoytiEBZXRPGMRYTK6434-08-86 10:50:00 Test Item Value Reference Range Interpretation Comments BUN (test code = BUN) 15 7-22 [facility]aAckxnbrHRQRNUTFOLWR5598-31-20 10:50:00 Test Item Value Reference Range Interpretation Comments CO2 (test code = CO2) 28 24-32 [facility]penaVjrkbekBWDXLRWKSVRP0831-80-59 10:50:00 Test Item Value Reference Range Interpretation Comments Glucose Lvl (test code = Glucose Lvl) 121 70-99 [facility] CenterIhnoxdkBBTMJNREMI3710-44-64 10:50:00 Test Item Value Reference Range Interpretation Comments Basophils # (test code 0.1 See_Comment [Aut omated message] The = Basophils #) system which generated this result tra nsmitted reference range : <=0.2. The reference r ondina was not used to int erpret this result as normal/abnormal . [facility] CenterWdxlccuCTSNPCAQIO5629-80-25 10:50:00 Test Item Value Reference Range Interpretation Comments Neutrophils # (test code = Neutrophils 4.6 1.5-8.1 #) [facility] CenterCuhsrucIVLESSMRXF8971-11-30 10:50:00 Test Item Value Reference Range Interpretation Comments Lymphocytes # (test code = Lymphocytes 1.5 1.0-5.5 #) [facility] CenterUcswawdZUMFWSATMI8642-73-41 10:50:00 Test Item Value Reference Range Interpretation Comments Lymphocytes (test code = Lymphocytes) 22.0 20.0-40.0 [facility] CenterVzzeftsIPOQDGGXWY9889-48-25 10:50:00 Test Item Value Reference Range Interpretation Comments Monocytes (test code = Monocytes) 6.9 2.0-12.0 [facility] CenterPemekevOGIZQMIETO9506-92-56 10:50:00 Test Item Value Reference Range Interpretation Comments Basophils (test code = 0.7 See_Comment [Aut omated message] The Basophils) system which ge nerated this result tra nsmitted reference range : <=1.0. The reference r ondina was not used to int erpret this result as normal/abnormal . [facility] CenterCcmvnhbOJUHWJIDBJ1301-64-10 10:50:00 Test Item Value Reference Range Interpretation Comments Eosinophils (test code = 4.5 See_Comment [A utomated message] The Eosinophils) system which ge nerated this result tra nsmitted reference range : <=4.0. The reference r ondina was not used to int erpret this result as normal/abnormal . [facility] CenterPxfoewcYNNRIKNSCX6306-47-55 10:50:00 Test Item Value Reference Range Interpretation Comments Monocytes # (test code 0.5 See_Comment [Aut omated message] The = Monocytes #) system which generated this result tra nsmitted reference range : <=0.8. The reference r ondina was not used to int erpret this result as normal/abnormal . [facility]xbwlrjSIOXQSXSJS7941-86-22 10:50:00 Test Item Value Reference Range Interpretation Comments Eosinophils # (test code 0.3 See_Comment [A utomated message] The = Eosinophils #) system [facility] generated this result tra nsmitted reference range : <=0.5. The reference r ondina was not used to int erpret this result as normal/abnormal . [facility] CenterIplikudAHWJPODHWO1172-16-47 10:50:00 Test Item Value Reference Range Interpretation Comments Segs (test code = Segs) 65.9 45.0-75.0 [facility] CenterMquuthkNWKKRWOYRB1716-82-35 10:50:00 Test Item Value Reference Range Interpretation Comments MCH (test code = MCH) 26.3 pg 27.0-31.0 [facility] CenterPhyxqhnDWCKLIZYFL5066-82-81 10:50:00 Test Item Value Reference Range Interpretation Comments MCHC (test code = MCHC) 32.2 32.0-36.0 [facility] CenterMtyizioLRNOBQMZAN3970-93-40 10:50:00 Test Item Value Reference Range Interpretation Comments Hct (test code = Hct) 24.2 42.0-54.0 [facility] CenterWknffwmXWDFFQRAUL8721-79-77 10:50:00 Test Item Value Reference Range Interpretation Comments MCV (test code = MCV) 81.7 80.0-94.0 [facility] CenterEbokuxsWKEOTVHHCG4551-89-35 10:50:00 Test Item Value Reference Range Interpretation Comments Platelet (test code = Platelet) 200 133-450 [facility] CenterMchanaoKEMNZQIHGY7449-44-15 10:50:00 Test Item Value Reference Range Interpretation Comments RDW (test code = RDW) 18.4 11.5-14.5 [facility] CenterXzrezvpNOSSLFGBQN5621-12-08 10:50:00 Test Item Value Reference Range Interpretation Comments MPV (test code = MPV) 8.2 7.4-10.4 [facility] CenterLdohjgsCWCJSKICOQ6148-98-58 10:50:00 Test Item Value Reference Range Interpretation Comments RBC (test code = RBC) 2.96 4.70-6.10 [facility] CenterKoeckciIBRFFJLLTH7521-10-30 10:50:00 Test Item Value Reference Range Interpretation Comments Hgb (test code = Hgb) 7.8 14.0-18.0 [facility] CenterTyxohaaOCDAFWSZHB2335-44-79 10:50:00 Test Item Value Reference Range Interpretation Comments WBC (test code = WBC) 7.0 3.7-10.4 [facility]jhmofzMLJNISHZXL2261-61-71 10:50:00 Test Item Value Reference Range Interpretation Comments Vanco Tr (test code = Vanco Tr) 21.8 [facility]SS2927-65-50 10:50:00 Test Item Value Reference Range Interpretation Comments Vanco Tr TND (test code = Vanco Tr TND) unk [facility]2019-03-16 09:08:00 Test Item Value Reference Range Interpretation Comments Bili Total (test code = Bili Total) 0.6 0.2-1.3 [facility]2019-03-16 09:08:00 Test Item Value Reference Range Interpretation Comments Total Protein (test code = Total 6.5 6.4-8.4 Protein) [facility]2019-03-16 09:08:00 Test Item Value Reference Range Interpretation Comments Alk Phos (test code = Alk Phos) 71 39-136 [facility]2019-03-16 09:08:00 Test Item Value Reference Range Interpretation Comments ALT (test code = ALT) 12 See_Comment [Auto mated message] The system which ge nerated this result transmit garrett reference range : <=65. The reference range was not used to interpr et this result as cassie l/abnormal. [facility]2019-03-16 09:08:00 Test Item Value Reference Range Interpretation Comments AST (test code = AST) 12 See_Comment [Auto mated message] The system which ge nerated this result transmit garrett reference range : <=37. The reference range was not used to interpr et this result as cassie l/abnormal. [facility]2019-03-16 09:08:00 Test Item Value Reference Range Interpretation Comments Albumin Lvl (test code = Albumin Lvl) 2.5 3.5-5.0 [facility]2019-03-16 09:08:00 Test Item Value Reference Range Interpretation Comments A/G Ratio (test code = A/G Ratio) 0.6 1 0.7-1.6 [facility]2019-03-16 09:08:00 Test Item Value Reference Range Interpretation Comments Globulin (test code = Globulin) 4.0 2.7-4.2 [place] [id number] 09:08:00 Test Item Value Reference Range Interpretation Comments B/C Ratio (test code = B/C Ratio) 19 1 6-25 [place] 751749-03-16 09:08:00 Test Item Value Reference Range Interpretation Comments Bili Total (test code = Bili Total) 0.6 0.2-1.3 [place] 751749-03-16 09:08:00 Test Item Value Reference Range Interpretation Comments Total Protein (test code = Total 6.5 6.4-8.4 Protein) [facility]2019-03-16 09:08:00 Test Item Value Reference Range Interpretation Comments Alk Phos (test code = Alk Phos) 71 39-136 [facility]2019-03-16 09:08:00 Test Item Value Reference Range Interpretation Comments ALT (test code = ALT) 12 See_Comment [Auto mated message] The system which ge nerated this result transmit garrett reference range : <=65. The reference range was not used to interpr et this result as cassie l/abnormal. [facility]2019-03-16 09:08:00 Test Item Value Reference Range Interpretation Comments AST (test code = AST) 12 See_Comment [Auto mated message] The system which ge nerated this result transmit garrett reference range : <=37. The reference range was not used to interpr et this result as cassie l/abnormal. [facility]2019-03-16 09:08:00 Test Item Value Reference Range Interpretation Comments Albumin Lvl (test code = Albumin Lvl) 2.5 3.5-5.0 [facility]2019-03-16 09:08:00 Test Item Value Reference Range Interpretation Comments A/G Ratio (test code = A/G Ratio) 0.6 1 0.7-1.6 [facility]2019-03-16 09:08:00 Test Item Value Reference Range Interpretation Comments Globulin (test code = Globulin) 4.0 2.7-4.2 [facility]2019-03-16 09:08:00 Test Item Value Reference Range Interpretation Comments B/C Ratio (test code = B/C Ratio) 19 1 6-25 [facility]2019-03-16 09:08:00 Test Item Value Reference Range Interpretation Comments Bili Total (test code = Bili Total) 0.6 0.2-1.3 [facility]2019-03-16 09:08:00 Test Item Value Reference Range Interpretation Comments Total Protein (test code = Total 6.5 6.4-8.4 Protein) [place] 751749-03-16 09:08:00 Test Item Value Reference Range Interpretation Comments Alk Phos (test code = Alk Phos) 71 39-136 [facility] [id number] 09:08:00 Test Item Value Reference Range Interpretation Comments ALT (test code = ALT) 12 See_Comment [Auto mated message] The system which ge nerated this result transmit garrett reference range : <=65. The reference range was not used to interpr et this result as cassie l/abnormal. [facility] [id number] 09:08:00 Test Item Value Reference Range Interpretation Comments AST (test code = AST) 12 See_Comment [Auto mated message] The system which ge nerated this result transmit garrett reference range : <=37. The reference range was not used to interpr et this result as cassie l/abnormal. [facility] [id number] 09:08:00 Test Item Value Reference Range Interpretation Comments Albumin Lvl (test code = Albumin Lvl) 2.5 3.5-5.0 [facility] [id number] 09:08:00 Test Item Value Reference Range Interpretation Comments A/G Ratio (test code = A/G Ratio) 0.6 1 0.7-1.6 [facility] [id number] 09:08:00 Test Item Value Reference Range Interpretation Comments Globulin (test code = Globulin) 4.0 2.7-4.2 [facility] [id number] 09:08:00 Test Item Value Reference Range Interpretation Comments B/C Ratio (test code = B/C Ratio) 19 1 6-25 [facility] [id number] 09:08:00 Test Item Value Reference Range Interpretation Comments Bili Total (test code = Bili Total) 0.6 0.2-1.3 [facility] [id number] 09:08:00 Test Item Value Reference Range Interpretation Comments Total Protein (test code = Total 6.5 6.4-8.4 Protein) [facility] [id number] 09:08:00 Test Item Value Reference Range Interpretation Comments Alk Phos (test code = Alk Phos) 71 39-136 [facility] [id number] 09:08:00 Test Item Value Reference Range Interpretation Comments ALT (test code = ALT) 12 See_Comment [Auto mated message] The system which ge nerated this result transmit garrett reference range : <=65. The reference range was not used to interpr et this result as cassie l/abnormal. [facility]2019-03-16 09:08:00 Test Item Value Reference Range Interpretation Comments AST (test code = AST) 12 See_Comment [Auto mated message] The system which ge nerated this result transmit garrett reference range : <=37. The reference range was not used to interpr et this result as cassie l/abnormal. [facility]2019-03-16 09:08:00 Test Item Value Reference Range Interpretation Comments Albumin Lvl (test code = Albumin Lvl) 2.5 3.5-5.0 [place] 751749-03-16 09:08:00 Test Item Value Reference Range Interpretation Comments A/G Ratio (test code = A/G Ratio) 0.6 1 0.7-1.6 [place]1749-03-16 09:08:00 Test Item Value Reference Range Interpretation Comments Globulin (test code = Globulin) 4.0 2.7-4.2 [place] 751749-03-16 09:08:00 Test Item Value Reference Range Interpretation Comments B/C Ratio (test code = B/C Ratio) 19 1 6-25 [facility] CenterSslgigbCVIMAZOBKO3420-11-20 20:56:00 Test Item Value Reference Range Interpretation Comments INR (test code = INR) 0.89 1 0.85-1.17 [facility] CenterOtnlpgcYCOHPKQEDT1890-52-15 20:56:00 Test Item Value Reference Range Interpretation Comments PT (test code = PT) 11.9 s 12.0-14.7 [place] [id number] 20:56:00 Test Item Value Reference Range Interpretation Comments INR (test code = INR) 0.89 1 0.85-1.17 [place] [id number] 20:56:00 Test Item Value Reference Range Interpretation Comments PT (test code = PT) 11.9 s 12.0-14.7 [place] [id number] 20:56:00 Test Item Value Reference Range Interpretation Comments INR (test code = INR) 0.89 1 0.85-1.17 [facility] CenterJipdrvkKCVQTAJVIX9732-29-29 20:56:00 Test Item Value Reference Range Interpretation Comments PT (test code = PT) 11.9 s 12.0-14.7 [facility] CenterResnnboNAATGYPOOO6258-22-83 20:56:00 Test Item Value Reference Range Interpretation Comments INR (test code = INR) 0.89 1 0.85-1.17 [facility] CenterZslxoibPZHJBHOGMF1738-85-44 20:56:00 Test Item Value Reference Range Interpretation Comments PT (test code = PT) 11.9 s 12.0-14.7 [facility] [id number] 15:16:00 Test Item Value Reference Range Interpretation Comments RBC product (test code Product available = RBC product) 1(05/17/18 10:16 AM) [facility] [id number] 15:16:00 Test Item Value Reference Range Interpretation Comments RBC product (test code Product available = RBC product) 1(05/17/18 10:16 AM) [facility] [id number] 15:16:00 Test Item Value Reference Range Interpretation Comments RBC product (test code Product available = RBC product) 1(05/17/18 10:16 AM) [facility] BANK [id number] 15:16:00 Test Item Value Reference Range Interpretation Comments RBC product (test code Product available = RBC product) 1(05/17/18 10:16 AM) [facility] [id number] 13:26:00 Test Item Value Reference Range Interpretation Comments Antibody Scrn (test Negative (05/17/18 8:26 code = Antibody Scrn) AM) [facility] BANK [id number] 13:26:00 Test Item Value Reference Range Interpretation Comments ABO/Rh (test code = ABO/Rh) A POS [facility] BANK [id number] 13:26:00 Test Item Value Reference Range Interpretation Comments Antibody Scrn (test Negative (05/17/18 8:26 code = Antibody Scrn) AM) [facility] BANK [id number] 13:26:00 Test Item Value Reference Range Interpretation Comments ABO/Rh (test code = ABO/Rh) A POS [facility] BANK [id number] 13:26:00 Test Item Value Reference Range Interpretation Comments Antibody Scrn (test Negative (05/17/18 8:26 code = Antibody Scrn) AM) [facility] [employer] [id number] 13:26:00 Test Item Value Reference Range Interpretation Comments ABO/Rh (test code = ABO/Rh) A POS [facility] [employer] [id number] 13:26:00 Test Item Value Reference Range Interpretation Comments Antibody Scrn (test Negative (05/17/18 8:26 code = Antibody Scrn) AM) [facility] [employer] [id number] 13:26:00 Test Item Value Reference Range Interpretation Comments ABO/Rh (test code = ABO/Rh) A POS [facility] [employer] [place] [id number] 09:48:00 Test Item Value Reference Range Interpretation Comments Phosphorus (test code = Phosphorus) 3.2 2.5-4.5 [facility] [employer] [place] [id number] 09:48:00 Test Item Value Reference Range Interpretation Comments Bili Total (test code = Bili Total) 0.7 0.2-1.3 [facility] [employer] [place] [id number] 09:48:00 Test Item Value Reference Range Interpretation Comments Total Protein (test code = Total 5.9 6.4-8.4 Protein) [facility] [employer] [place] [id number] 09:48:00 Test Item Value Reference Range Interpretation Comments Albumin Lvl (test code = Albumin Lvl) 2.5 3.5-5.0 [facility] [employer] [place] [id number] 09:48:00 Test Item Value Reference Range Interpretation Comments Alk Phos (test code = Alk Phos) 80 39-136 [facility] [employer] [place] [id number] 09:48:00 Test Item Value Reference Range Interpretation Comments ALT (test code = ALT) 12 See_Comment [Auto mated message] The system which ge nerated this result transmit garrett reference range : <=65. The reference range was not used to interpr et this result as cassie l/abnormal. [employer] [id number] 09:48:00 Test Item Value Reference Range Interpretation Comments AST (test code = AST) 8 See_Comment [Auto mated message] The system which ge nerated this result transmit garrett reference range : <=37. The reference range was not used to interpr et this result as cassie l/abnormal. [facility]2019-03-15 09:48:00 Test Item Value Reference Range Interpretation Comments A/G Ratio (test code = A/G Ratio) 0.7 1 0.7-1.6 [facility]2019-03-15 09:48:00 Test Item Value Reference Range Interpretation Comments Globulin (test code = Globulin) 3.4 2.7-4.2 [facility]2019-03-15 09:48:00 Test Item Value Reference Range Interpretation Comments B/C Ratio (test code = B/C Ratio) 14 1 6-25 [facility]2019-03-15 09:48:00 Test Item Value Reference Range Interpretation Comments Magnesium Lvl (test code = Magnesium 1.8 1.8-2.4 Lvl) [facility] [id number] 09:48:00 Test Item Value Reference Range Interpretation Comments INR (test code = INR) 1.15 1 0.85-1.17 [facility] C[id number] 09:48:00 Test Item Value Reference Range Interpretation Comments PT (test code = PT) 14.5 s 12.0-14.7 [facility] CenterYedqumfCFIOFOWTOB7247-03-20 09:48:00 Test Item Value Reference Range Interpretation Comments PTT (test code = PTT) 43.8 s 22.9-35.8 [facility]2019-03-15 09:48:00 Test Item Value Reference Range Interpretation Comments Phosphorus (test code = Phosphorus) 3.2 2.5-4.5 [facility]2019-03-15 09:48:00 Test Item Value Reference Range Interpretation Comments Bili Total (test code = Bili Total) 0.7 0.2-1.3 [facility]2019-03-15 09:48:00 Test Item Value Reference Range Interpretation Comments Total Protein (test code = Total 5.9 6.4-8.4 Protein) [facility]2019-03-15 09:48:00 Test Item Value Reference Range Interpretation Comments Albumin Lvl (test code = Albumin Lvl) 2.5 3.5-5.0 [facility]2019-03-15 09:48:00 Test Item Value Reference Range Interpretation Comments Alk Phos (test code = Alk Phos) 80 39-136 [facility]2019-03-15 09:48:00 Test Item Value Reference Range Interpretation Comments ALT (test code = ALT) 12 See_Comment [Auto mated message] The system which ge nerated this result transmit garrett reference range : <=65. The reference range was not used to interpr et this result as cassie l/abnormal. [facility]2019-03-15 09:48:00 Test Item Value Reference Range Interpretation Comments AST (test code = AST) 8 See_Comment [Auto mated message] The system which ge nerated this result transmit garrett reference range : <=37. The reference range was not used to interpr et this result as cassie l/abnormal. [place] 751749-03-15 09:48:00 Test Item Value Reference Range Interpretation Comments A/G Ratio (test code = A/G Ratio) 0.7 1 0.7-1.6 [place] 751749-03-15 09:48:00 Test Item Value Reference Range Interpretation Comments Globulin (test code = Globulin) 3.4 2.7-4.2 [place] 751749-03-15 09:48:00 Test Item Value Reference Range Interpretation Comments B/C Ratio (test code = B/C Ratio) 14 1 6-25 [place] 751749-03-15 09:48:00 Test Item Value Reference Range Interpretation Comments Magnesium Lvl (test code = Magnesium 1.8 1.8-2.4 Lvl) [facility] [id number] 09:48:00 Test Item Value Reference Range Interpretation Comments INR (test code = INR) 1.15 1 0.85-1.17 [place] [address]-03-15 09:48:00 Test Item Value Reference Range Interpretation Comments PT (test code = PT) 14.5 s 12.0-14.7 [place] 539439-03-15 09:48:00 Test Item Value Reference Range Interpretation Comments PTT (test code = PTT) 43.8 s 22.9-35.8 [place] 751749-03-15 09:48:00 Test Item Value Reference Range Interpretation Comments Phosphorus (test code = Phosphorus) 3.2 2.5-4.5 [facility]2019-03-15 09:48:00 Test Item Value Reference Range Interpretation Comments Bili Total (test code = Bili Total) 0.7 0.2-1.3 [facility]2019-03-15 09:48:00 Test Item Value Reference Range Interpretation Comments Total Protein (test code = Total 5.9 6.4-8.4 Protein) [facility]2019-03-15 09:48:00 Test Item Value Reference Range Interpretation Comments Albumin Lvl (test code = Albumin Lvl) 2.5 3.5-5.0 [facility]2019-03-15 09:48:00 Test Item Value Reference Range Interpretation Comments Alk Phos (test code = Alk Phos) 80 39-136 [facility]2019-03-15 09:48:00 Test Item Value Reference Range Interpretation Comments ALT (test code = ALT) 12 See_Comment [Auto mated message] The system which ge nerated this result transmit garrett reference range : <=65. The reference range was not used to interpr et this result as cassie l/abnormal. [facility]2019-03-15 09:48:00 Test Item Value Reference Range Interpretation Comments AST (test code = AST) 8 See_Comment [Auto mated message] The system which ge nerated this result transmit garrett reference range : <=37. The reference range was not used to interpr et this result as cassie l/abnormal. [facility]2019-03-15 09:48:00 Test Item Value Reference Range Interpretation Comments A/G Ratio (test code = A/G Ratio) 0.7 1 0.7-1.6 [facility]2019-03-15 09:48:00 Test Item Value Reference Range Interpretation Comments Globulin (test code = Globulin) 3.4 2.7-4.2 [facility]2019-03-15 09:48:00 Test Item Value Reference Range Interpretation Comments B/C Ratio (test code = B/C Ratio) 14 1 6-25 [place] 751749-03-15 09:48:00 Test Item Value Reference Range Interpretation Comments Magnesium Lvl (test code = Magnesium 1.8 1.8-2.4 Lvl) [place] 539439-03-15 09:48:00 Test Item Value Reference Range Interpretation Comments INR (test code = INR) 1.15 1 0.85-1.17 [place] 539439-03-15 09:48:00 Test Item Value Reference Range Interpretation Comments PT (test code = PT) 14.5 s 12.0-14.7 [place] [address]-03-15 09:48:00 Test Item Value Reference Range Interpretation Comments PTT (test code = PTT) 43.8 s 22.9-35.8 [place] [address]-03-15 09:48:00 Test Item Value Reference Range Interpretation Comments Phosphorus (test code = Phosphorus) 3.2 2.5-4.5 [place] 751749-03-15 09:48:00 Test Item Value Reference Range Interpretation Comments Bili Total (test code = Bili Total) 0.7 0.2-1.3 [place] 751749-03-15 09:48:00 Test Item Value Reference Range Interpretation Comments Total Protein (test code = Total 5.9 6.4-8.4 Protein) [place] 751749-03-15 09:48:00 Test Item Value Reference Range Interpretation Comments Albumin Lvl (test code = Albumin Lvl) 2.5 3.5-5.0 [place] 751749-03-15 09:48:00 Test Item Value Reference Range Interpretation Comments Alk Phos (test code = Alk Phos) 80 39-136 [facility]2019-03-15 09:48:00 Test Item Value Reference Range Interpretation Comments ALT (test code = ALT) 12 See_Comment [Auto mated message] The system which ge nerated this result transmit garrett reference range : <=65. The reference range was not used to interpr et this result as cassie l/abnormal. [place] 751749-03-15 09:48:00 Test Item Value Reference Range Interpretation Comments AST (test code = AST) 8 See_Comment [Auto mated message] The system which ge nerated this result transmit garrett reference range : <=37. The reference range was not used to interpr et this result as cassie l/abnormal. [place] 751749-03-15 09:48:00 Test Item Value Reference Range Interpretation Comments A/G Ratio (test code = A/G Ratio) 0.7 1 0.7-1.6 [facility]2019-03-15 09:48:00 Test Item Value Reference Range Interpretation Comments Globulin (test code = Globulin) 3.4 2.7-4.2 [facility]2019-03-15 09:48:00 Test Item Value Reference Range Interpretation Comments B/C Ratio (test code = B/C Ratio) 14 1 6-25 [facility]2019-03-15 09:48:00 Test Item Value Reference Range Interpretation Comments Magnesium Lvl (test code = Magnesium 1.8 1.8-2.4 Lvl) [facility] [id number] 09:48:00 Test Item Value Reference Range Interpretation Comments INR (test code = INR) 1.15 1 0.85-1.17 [facility] CenterGszoqhqRGKNKTXHSZ0597-97-21 09:48:00 Test Item Value Reference Range Interpretation Comments PT (test code = PT) 14.5 s 12.0-14.7 [facility] CenterYkcexocBAFMNRUALA5211-60-16 09:48:00 Test Item Value Reference Range Interpretation Comments PTT (test code = PTT) 43.8 s 22.9-35.8 [facility]2019-03-14 10:21:00 Test Item Value Reference Range Interpretation Comments AST (test code = AST) 6 See_Comment [Auto mated message] The system which ge nerated this result transmit garrett reference range : <=37. The reference range was not used to interpr et this result as cassie l/abnormal. [facility]2019-03-14 10:21:00 Test Item Value Reference Range Interpretation Comments A/G Ratio (test code = A/G Ratio) 0.7 1 0.7-1.6 [facility]2019-03-14 10:21:00 Test Item Value Reference Range Interpretation Comments Total Protein (test code = Total 5.8 6.4-8.4 Protein) [facility]2019-03-14 10:21:00 Test Item Value Reference Range Interpretation Comments Globulin (test code = Globulin) 3.4 2.7-4.2 [facility]2019-03-14 10:21:00 Test Item Value Reference Range Interpretation Comments B/C Ratio (test code = B/C Ratio) 15 1 6-25 [facility]2019-03-14 10:21:00 Test Item Value Reference Range Interpretation Comments ALT (test code = ALT) 11 See_Comment [Auto mated message] The system which ge nerated this result transmit garrett reference range : <=65. The reference range was not used to interpr et this result as cassie l/abnormal. [facility]2019-03-14 10:21:00 Test Item Value Reference Range Interpretation Comments Bili Total (test code = Bili Total) 1.6 0.2-1.3 [facility]2019-03-14 10:21:00 Test Item Value Reference Range Interpretation Comments Albumin Lvl (test code = Albumin Lvl) 2.4 3.5-5.0 [facility]2019-03-14 10:21:00 Test Item Value Reference Range Interpretation Comments Alk Phos (test code = Alk Phos) 75 39-136 [facility]2019-03-14 10:21:00 Test Item Value Reference Range Interpretation Comments Magnesium Lvl (test code = Magnesium 1.8 1.8-2.4 Lvl) [facility]2019-03-14 10:21:00 Test Item Value Reference Range Interpretation Comments Phosphorus (test code = Phosphorus) 3.0 2.5-4.5 [id number] 10:21:00 Test Item Value Reference Range Interpretation Comments Vanco Lvl (test code = Vanco Lvl) 16.6 [facility]2019-03-14 10:21:00 Test Item Value Reference Range Interpretation Comments AST (test code = AST) 6 See_Comment [Auto mated message] The system which ge nerated this result transmit garrett reference range : <=37. The reference range was not used to interpr et this result as cassie l/abnormal. [facility]2019-03-14 10:21:00 Test Item Value Reference Range Interpretation Comments A/G Ratio (test code = A/G Ratio) 0.7 1 0.7-1.6 [facility]2019-03-14 10:21:00 Test Item Value Reference Range Interpretation Comments Total Protein (test code = Total 5.8 6.4-8.4 Protein) [facility]2019-03-14 10:21:00 Test Item Value Reference Range Interpretation Comments Globulin (test code = Globulin) 3.4 2.7-4.2 [facility]2019-03-14 10:21:00 Test Item Value Reference Range Interpretation Comments B/C Ratio (test code = B/C Ratio) 15 1 6-25 [facility]2019-03-14 10:21:00 Test Item Value Reference Range Interpretation Comments ALT (test code = ALT) 11 See_Comment [Auto mated message] The system which ge nerated this result transmit garrett reference range : <=65. The reference range was not used to interpr et this result as cassie l/abnormal. [facility]2019-03-14 10:21:00 Test Item Value Reference Range Interpretation Comments Bili Total (test code = Bili Total) 1.6 0.2-1.3 [facility]2019-03-14 10:21:00 Test Item Value Reference Range Interpretation Comments Albumin Lvl (test code = Albumin Lvl) 2.4 3.5-5.0 [facility]2019-03-14 10:21:00 Test Item Value Reference Range Interpretation Comments Alk Phos (test code = Alk Phos) 75 39-136 [facility]2019-03-14 10:21:00 Test Item Value Reference Range Interpretation Comments Magnesium Lvl (test code = Magnesium 1.8 1.8-2.4 Lvl) [facility]2019-03-14 10:21:00 Test Item Value Reference Range Interpretation Comments Phosphorus (test code = Phosphorus) 3.0 2.5-4.5 [facility] H[id number] 10:21:00 Test Item Value Reference Range Interpretation Comments Vanco Lvl (test code = Vanco Lvl) 16.6 [facility]2019-03-14 10:21:00 Test Item Value Reference Range Interpretation Comments AST (test code = AST) 6 See_Comment [Auto mated message] The system which ge nerated this result transmit garrett reference range : <=37. The reference range was not used to interpr et this result as cassie l/abnormal. [facility]2019-03-14 10:21:00 Test Item Value Reference Range Interpretation Comments A/G Ratio (test code = A/G Ratio) 0.7 1 0.7-1.6 [facility]2019-03-14 10:21:00 Test Item Value Reference Range Interpretation Comments Total Protein (test code = Total 5.8 6.4-8.4 Protein) [facility]2019-03-14 10:21:00 Test Item Value Reference Range Interpretation Comments Globulin (test code = Globulin) 3.4 2.7-4.2 [facility]2019-03-14 10:21:00 Test Item Value Reference Range Interpretation Comments B/C Ratio (test code = B/C Ratio) 15 1 6-25 [facility]2019-03-14 10:21:00 Test Item Value Reference Range Interpretation Comments ALT (test code = ALT) 11 See_Comment [Auto mated message] The system which ge nerated this result transmit garrett reference range : <=65. The reference range was not used to interpr et this result as cassie l/abnormal. [facility]2019-03-14 10:21:00 Test Item Value Reference Range Interpretation Comments Bili Total (test code = Bili Total) 1.6 0.2-1.3 [facility]2019-03-14 10:21:00 Test Item Value Reference Range Interpretation Comments Albumin Lvl (test code = Albumin Lvl) 2.4 3.5-5.0 [facility]2019-03-14 10:21:00 Test Item Value Reference Range Interpretation Comments Alk Phos (test code = Alk Phos) 75 39-136 [facility]2019-03-14 10:21:00 Test Item Value Reference Range Interpretation Comments Magnesium Lvl (test code = Magnesium 1.8 1.8-2.4 Lvl) [facility]2019-03-14 10:21:00 Test Item Value Reference Range Interpretation Comments Phosphorus (test code = Phosphorus) 3.0 2.5-4.5 [facility] H[id number] 10:21:00 Test Item Value Reference Range Interpretation Comments Vanco Lvl (test code = Vanco Lvl) 16.6 [facility]2019-03-14 10:21:00 Test Item Value Reference Range Interpretation Comments AST (test code = AST) 6 See_Comment [Auto mated message] The system which ge nerated this result transmit garrett reference range : <=37. The reference range was not used to interpr et this result as cassie l/abnormal. [facility]2019-03-14 10:21:00 Test Item Value Reference Range Interpretation Comments A/G Ratio (test code = A/G Ratio) 0.7 1 0.7-1.6 [facility]2019-03-14 10:21:00 Test Item Value Reference Range Interpretation Comments Total Protein (test code = Total 5.8 6.4-8.4 Protein) [facility]2019-03-14 10:21:00 Test Item Value Reference Range Interpretation Comments Globulin (test code = Globulin) 3.4 2.7-4.2 [facility]2019-03-14 10:21:00 Test Item Value Reference Range Interpretation Comments B/C Ratio (test code = B/C Ratio) 15 1 6-25 [facility]2019-03-14 10:21:00 Test Item Value Reference Range Interpretation Comments ALT (test code = ALT) 11 See_Comment [Auto mated message] The system which ge nerated this result transmit garrett reference range : <=65. The reference range was not used to interpr et this result as cassie l/abnormal. [facility]2019-03-14 10:21:00 Test Item Value Reference Range Interpretation Comments Bili Total (test code = Bili Total) 1.6 0.2-1.3 [facility]2019-03-14 10:21:00 Test Item Value Reference Range Interpretation Comments Albumin Lvl (test code = Albumin Lvl) 2.4 3.5-5.0 [facility]2019-03-14 10:21:00 Test Item Value Reference Range Interpretation Comments Alk Phos (test code = Alk Phos) 75 39-136 [facility]2019-03-14 10:21:00 Test Item Value Reference Range Interpretation Comments Magnesium Lvl (test code = Magnesium 1.8 1.8-2.4 Lvl) [facility]2019-03-14 10:21:00 Test Item Value Reference Range Interpretation Comments Phosphorus (test code = Phosphorus) 3.0 2.5-4.5 [id number] 10:21:00 Test Item Value Reference Range Interpretation Comments Vanco Lvl (test code = Vanco Lvl) 16.6 [facility] CenterannPARATHYROID [id number] 08:07:00 Test Item Value Reference Range Interpretation Comments Ca Norm WB (test code = Ca Norm WB) 1.15 1.05-1.25 [facility] HermannPARATHYROID [id number] 08:07:00 Test Item Value Reference Range Interpretation Comments Ca Ion WB (test code = Ca Ion WB) 1.15 1.05-1.25 [facility] HermannPARATHYROID [id number] 08:07:00 Test Item Value Reference Range Interpretation Comments Ca Norm WB (test code = Ca Norm WB) 1.15 1.05-1.25 [facility] CenterannPARATHYROID [id number] 08:07:00 Test Item Value Reference Range Interpretation Comments Ca Ion WB (test code = Ca Ion WB) 1.15 1.05-1.25 [facility] HermannPARATHYROID [id number] 08:07:00 Test Item Value Reference Range Interpretation Comments Ca Norm WB (test code = Ca Norm WB) 1.15 1.05-1.25 [facility] HermannPARATHYROID [id number] 08:07:00 Test Item Value Reference Range Interpretation Comments Ca Ion WB (test code = Ca Ion WB) 1.15 1.05-1.25 [facility] CenterannPARATHYROID [id number] 08:07:00 Test Item Value Reference Range Interpretation Comments Ca Norm WB (test code = Ca Norm WB) 1.15 1.05-1.25 [facility] CenterannPARATHYROID [id number] 08:07:00 Test Item Value Reference Range Interpretation Comments Ca Ion WB (test code = Ca Ion WB) 1.15 1.05-1.25 [facility] CenterannPARATHYROID [id number] 08:41:00 Test Item Value Reference Range Interpretation Comments Ca Norm WB (test code = Ca Norm WB) 1.11 1.05-1.25 [facility] CenterannPARATHYROID [id number] 08:41:00 Test Item Value Reference Range Interpretation Comments Ca Ion WB (test code = Ca Ion WB) 1.09 1.05-1.25 [facility] [id number] 08:41:00 Test Item Value Reference Range Interpretation Comments Ca Norm WB (test code = Ca Norm WB) 1.11 1.05-1.25 [facility] [id number] 08:41:00 Test Item Value Reference Range Interpretation Comments Ca Ion WB (test code = Ca Ion WB) 1.09 1.05-1.25 [facility] [id number] 08:41:00 Test Item Value Reference Range Interpretation Comments Ca Norm WB (test code = Ca Norm WB) 1.11 1.05-1.25 [facility] [id number] 08:41:00 Test Item Value Reference Range Interpretation Comments Ca Ion WB (test code = Ca Ion WB) 1.09 1.05-1.25 [facility] [id number] 08:41:00 Test Item Value Reference Range Interpretation Comments Ca Norm WB (test code = Ca Norm WB) 1.11 1.05-1.25 [facility] [id number] 08:41:00 Test Item Value Reference Range Interpretation Comments Ca Ion WB (test code = Ca Ion WB) 1.09 1.05-1.25 [facility] [id number] 04:19:00 Test Item Value Reference Range Interpretation Comments RBC product (test code Product available = RBC product) 2(05/13/18 11:19 PM) [facility] BANK [id number] 04:19:00 Test Item Value Reference Range Interpretation Comments RBC product (test code Product available = RBC product) 2(05/13/18 11:19 PM) [facility] [id number] 04:19:00 Test Item Value Reference Range Interpretation Comments RBC product (test code Product available = RBC product) 2(05/13/18 11:19 PM) [facility] BANK [id number] 04:19:00 Test Item Value Reference Range Interpretation Comments RBC product (test code Product available = RBC product) 2(05/13/18 11:19 PM) [facility] BANK [id number] 02:42:00 Test Item Value Reference Range Interpretation Comments RBC product (test code Product available = RBC product) 3(05/13/18 9:42 PM) [facility] BANK [id number] 02:42:00 Test Item Value Reference Range Interpretation Comments RBC product (test code Product available = RBC product) 3(05/13/18 9:42 PM) [facility] [id number] 02:42:00 Test Item Value Reference Range Interpretation Comments RBC product (test code Product available = RBC product) 3(05/13/18 9:42 PM) [facility] [id number] 02:42:00 Test Item Value Reference Range Interpretation Comments RBC product (test code Product available = RBC product) 3(05/13/18 9:42 PM) [facility] [id number] 01:42:00 Test Item Value Reference Range Interpretation Comments Lactic Acid Lvl (test code = Lactic 0.9 0.5-2.2 Acid Lvl) [facility] CenterIcttldcYOUHTCBYJR8901-53-42 01:42:00 Test Item Value Reference Range Interpretation Comments PT (test code = PT) 13.9 s 12.0-14.7 [facility] [id number] 01:42:00 Test Item Value Reference Range Interpretation Comments INR (test code = INR) 1.09 1 0.85-1.17 [facility] CenterRzmrgpjOZUDVMSCNU7735-93-26 01:42:00 Test Item Value Reference Range Interpretation Comments PTT (test code = PTT) 29.8 s 22.9-35.8 [facility] [id number] 01:42:00 Test Item Value Reference Range Interpretation Comments Lactic Acid Lvl (test code = Lactic 0.9 0.5-2.2 Acid Lvl) [facility] C[id number] 01:42:00 Test Item Value Reference Range Interpretation Comments PT (test code = PT) 13.9 s 12.0-14.7 [facility] CenterQihuskiOHIFOURCWI8598-49-43 01:42:00 Test Item Value Reference Range Interpretation Comments INR (test code = INR) 1.09 1 0.85-1.17 [facility] [id number] 01:42:00 Test Item Value Reference Range Interpretation Comments PTT (test code = PTT) 29.8 s 22.9-35.8 [facility]2019-03-12 01:42:00 Test Item Value Reference Range Interpretation Comments Lactic Acid Lvl (test code = Lactic 0.9 0.5-2.2 Acid Lvl) [facility] C[id number] 01:42:00 Test Item Value Reference Range Interpretation Comments PT (test code = PT) 13.9 s 12.0-14.7 [facility] CenterZxtyfrwMTTDCTJUNQ6378-89-54 01:42:00 Test Item Value Reference Range Interpretation Comments INR (test code = INR) 1.09 1 0.85-1.17 [facility] CenterWjnqueyRVBHZLPWJQ8870-55-58 01:42:00 Test Item Value Reference Range Interpretation Comments PTT (test code = PTT) 29.8 s 22.9-35.8 [facility] [id number] 01:42:00 Test Item Value Reference Range Interpretation Comments Lactic Acid Lvl (test code = Lactic 0.9 0.5-2.2 Acid Lvl) [facility] CenterPoyvtizURAVGBAMQN0980-27-19 01:42:00 Test Item Value Reference Range Interpretation Comments PT (test code = PT) 13.9 s 12.0-14.7 [facility] CenterZbbgtktFHTCKSDTSO1582-00-84 01:42:00 Test Item Value Reference Range Interpretation Comments INR (test code = INR) 1.09 1 0.85-1.17 [facility] Cent[id number] 01:42:00 Test Item Value Reference Range Interpretation Comments PTT (test code = PTT) 29.8 s 22.9-35.8 [facility] HospitalCulture: [id number] 13:11:00 Test Item Value Reference Range Interpretation Comments Culture: Anaerobic No Anaerobes Isolated (test code = Culture: Anaerobic) [facility] HospitalGram Stain [id number] 13:11:00 Test Item Value Reference Range Interpretation Comments Gram Stain Report No Wbc'S Or Organisms (test code = Gram Seen Stain Report) [facility] Fluid/Clajfl4947-14-21 13:11:00 Test Item Value Reference Range Interpretation Comments Culture: Aspirate/Body Fluid/Tissue No Growth (test code = Culture: Aspirate/Body Fluid/Tissue) [facility] [id number] 13:11:00 Test Item Value Reference Range Interpretation Comments Culture: Anaerobic No Anaerobes Isolated (test code = Culture: Anaerobic) [facility] Stain [id number] 13:11:00 Test Item Value Reference Range Interpretation Comments Gram Stain Report No Wbc'S Or Organisms (test code = Gram Seen Stain Report) [facility] Fluid/[id number] 13:11:00 Test Item Value Reference Range Interpretation Comments Culture: Aspirate/Body Fluid/Tissue No Growth (test code = Culture: Aspirate/Body Fluid/Tissue) [facility]: Dtlrniyvq6361-20-41 13:11:00 Test Item Value Reference Range Interpretation Comments Culture: Anaerobic No Anaerobes Isolated (test code = Culture: Anaerobic) [facility] Stain [id number] 13:11:00 Test Item Value Reference Range Interpretation Comments Gram Stain Report No Wbc'S Or Organisms (test code = Gram Seen Stain Report) [facility]irate/Body Fluid/[id number] 13:11:00 Test Item Value Reference Range Interpretation Comments Culture: Aspirate/Body Fluid/Tissue No Growth (test code = Culture: Aspirate/Body Fluid/Tissue) [facility]: [id number] 13:11:00 Test Item Value Reference Range Interpretation Comments Culture: Anaerobic No Anaerobes Isolated (test code = Culture: Anaerobic) [facility] Stain [id number] 13:11:00 Test Item Value Reference Range Interpretation Comments Gram Stain Report No Wbc'S Or Organisms (test code = Gram Seen Stain Report) [facility]irate/Body Fluid/[id number] 13:11:00 Test Item Value Reference Range Interpretation Comments Culture: Aspirate/Body Fluid/Tissue No Growth (test code = Culture: Aspirate/Body Fluid/Tissue) [facility] CenterDvcnxxgOMPZEDACFA5008-95-78 10:03:00 Test Item Value Reference Range Interpretation Comments Sed Rate (test code = 33 See_Comment [Auto mated message] The Sed Rate) system which ge nerated this result transmit garrett reference range : <=15. The reference range was not used to interpr et this result as cassie l/abnormal. [facility] CenterEuismoxTDWAZVCHMB6136-72-60 10:03:00 Test Item Value Reference Range Interpretation Comments PTT (test code = PTT) 32.6 s 22.9-35.8 [facility]fcQPNXRLXTEJ0649-99-68 10:03:00 Test Item Value Reference Range Interpretation Comments C-REACTIVE PROTEIN (test code = 12.4 C-REACTIVE PROTEIN) [facility] CenterHrlctdiOFXRIGJTFY6661-76-75 10:03:00 Test Item Value Reference Range Interpretation Comments Sed Rate (test code = 33 See_Comment [Auto mated message] The Sed Rate) system which ge nerated this result transmit garrett reference range : <=15. The reference range was not used to interpr et this result as cassie l/abnormal. [facility] Cent[id number] 10:03:00 Test Item Value Reference Range Interpretation Comments PTT (test code = PTT) 32.6 s 22.9-35.8 [facility]HzobaqdWPBMPSWANN7093-49-02 10:03:00 Test Item Value Reference Range Interpretation Comments C-REACTIVE PROTEIN (test code = 12.4 C-REACTIVE PROTEIN) [facility] CenterFceobwxOEJKSDBPZB1400-13-80 10:03:00 Test Item Value Reference Range Interpretation Comments Sed Rate (test code = 33 See_Comment [Auto mated message] The Sed Rate) system which ge nerated this result transmit garrett reference range : <=15. The reference range was not used to interpr et this result as cassie l/abnormal. [facility] CenterKnfbhytBHAEPUVAGV8831-72-22 10:03:00 Test Item Value Reference Range Interpretation Comments PTT (test code = PTT) 32.6 s 22.9-35.8 [facility]AwzhzoxJUBIVOVCIB0873-51-05 10:03:00 Test Item Value Reference Range Interpretation Comments C-REACTIVE PROTEIN (test code = 12.4 C-REACTIVE PROTEIN) [facility] CenterSgwaihtXOVCIHVIJV3658-84-30 10:03:00 Test Item Value Reference Range Interpretation Comments Sed Rate (test code = 33 See_Comment [Auto mated message] The Sed Rate) system which ge nerated this result transmit garrett reference range : <=15. The reference range was not used to interpr et this result as cassie l/abnormal. [facility] CenterIyhuyitQSKANCIEQT2441-64-64 10:03:00 Test Item Value Reference Range Interpretation Comments PTT (test code = PTT) 32.6 s 22.9-35.8 [facility] HospitalCbjheotTJPPRTTKVD7772-35-18 10:03:00 Test Item Value Reference Range Interpretation Comments C-REACTIVE PROTEIN (test code = 12.4 C-REACTIVE PROTEIN) [facility] [id number] 01:00:00 Test Item Value Reference Range Interpretation Comments Antibody Scrn (test Negative (05/12/18 8:00 code = Antibody Scrn) PM) [facility] [employer] [id number] 01:00:00 Test Item Value Reference Range Interpretation Comments ABO/Rh (test code = ABO/Rh) A POS [facility] [employer] [id number] 01:00:00 Test Item Value Reference Range Interpretation Comments Antibody Scrn (test Negative (05/12/18 8:00 code = Antibody Scrn) PM) [facility] [id number] 01:00:00 Test Item Value Reference Range Interpretation Comments ABO/Rh (test code = ABO/Rh) A POS [facility] [employer] [id number] 01:00:00 Test Item Value Reference Range Interpretation Comments Antibody Scrn (test Negative (05/12/18 8:00 code = Antibody Scrn) PM) [facility] [employer] [id number] 01:00:00 Test Item Value Reference Range Interpretation Comments ABO/Rh (test code = ABO/Rh) A POS [facility] [employer] [id number] 01:00:00 Test Item Value Reference Range Interpretation Comments Antibody Scrn (test Negative (05/12/18 8:00 code = Antibody Scrn) PM) [facility] [employer] [id number] 01:00:00 Test Item Value Reference Range Interpretation Comments ABO/Rh (test code = ABO/Rh) A POS [facility] [employer] [place] [id number] 09:58:00 Test Item Value Reference Range Interpretation Comments Bili Direct (test code no gt See_Comment [Aut omated message] The = Bili Direct) system which generated this result tra nsmitted reference range : <=0.3. The reference r ondina was not used to int erpret this result as cassie l/abnormal. [employer] [id number] 09:58:00 Test Item Value Reference Range Interpretation Comments Bili Indirect Unable to See_Comment [Automated (test code = Bili Calculate message] T he system Indirect) which generated this result transmitted reference range : <=1.0. The reference range was not used to interpret this result as normal/abnormal . [facility] Cent[id number] 09:58:00 Test Item Value Reference Range Interpretation Comments Sed Rate (test code = 30 See_Comment [Auto mated message] The Sed Rate) system which ge nerated this result transmit garrett reference range : <=15. The reference range was not used to interpr et this result as cassie l/abnormal. [facility] CenterCeqeforFGTESZHVSC9389-02-17 09:58:00 Test Item Value Reference Range Interpretation Comments Microcyte (test code = 1+ *ABN*(05/12/18 Microcyte) 4:58 AM) [id number] 09:58:00 Test Item Value Reference Range Interpretation Comments C-REACTIVE PROTEIN (test code = 9.8 C-REACTIVE PROTEIN) [facility]2019-03-10 09:58:00 Test Item Value Reference Range Interpretation Comments Bili Direct (test code no gt See_Comment [Aut omated message] The = Bili Direct) system which generated this result tra nsmitted reference range : <=0.3. The reference r ondina was not used to int erpret this result as cassie l/abnormal. [facility]2019-03-10 09:58:00 Test Item Value Reference Range Interpretation Comments Bili Indirect Unable to See_Comment [Automated (test code = Bili Calculate message] T system Indirect) which generated this result transmitted reference range : <=1.0. The reference range was not used to interpret this result as normal/abnormal . [facility]GqtvccdBIAACATIVZ9123-91-02 09:58:00 Test Item Value Reference Range Interpretation Comments Sed Rate (test code = 30 See_Comment [Auto mated message] The Sed Rate) system which ge nerated this result transmit garrett reference range : <=15. The reference range was not used to interpr et this result as cassie l/abnormal. [facility] CenterRhwxgqzWSHTLKFOSA9315-03-59 09:58:00 Test Item Value Reference Range Interpretation Comments Microcyte (test code = 1+ *ABN*(05/12/18 Microcyte) 4:58 AM) [place] [id number] 09:58:00 Test Item Value Reference Range Interpretation Comments C-REACTIVE PROTEIN (test code = 9.8 C-REACTIVE PROTEIN) [facility]2019-03-10 09:58:00 Test Item Value Reference Range Interpretation Comments Bili Direct (test code no gt See_Comment [Aut omated message] The = Bili Direct) system which generated this result tra nsmitted reference range : <=0.3. The reference r ondina was not used to int erpret this result as cassie l/abnormal. [facility]2019-03-10 09:58:00 Test Item Value Reference Range Interpretation Comments Bili Indirect Unable to See_Comment [Automated (test code = Bili Calculate message] T he system Indirect) which generated this result transmitted reference range : <=1.0. The reference range was not used to interpret this result as normal/abnormal . [facility] CenterNujlygxOBXNQTIPEJ7512-76-75 09:58:00 Test Item Value Reference Range Interpretation Comments Sed Rate (test code = 30 See_Comment [Auto mated message] The Sed Rate) system which ge nerated this result transmit garrett reference range : <=15. The reference range was not used to interpr et this result as cassie l/abnormal. [facility] CenterUzqwriaTKDHIADGPF4981-25-39 09:58:00 Test Item Value Reference Range Interpretation Comments Microcyte (test code = 1+ *ABN*(05/12/18 Microcyte) 4:58 AM) [facility] 09:58:00 Test Item Value Reference Range Interpretation Comments C-REACTIVE PROTEIN (test code = 9.8 C-REACTIVE PROTEIN) [facility]2019-03-10 09:58:00 Test Item Value Reference Range Interpretation Comments Bili Direct (test code no gt See_Comment [Aut omated message] The = Bili Direct) system which generated this result tra nsmitted reference range : <=0.3. The reference r ondina was not used to int erpret this result as cassie l/abnormal. [facility]2019-03-10 09:58:00 Test Item Value Reference Range Interpretation Comments Bili Indirect Unable to See_Comment [Automated (test code = Bili Calculate message] T he system Indirect) which generated this result transmitted reference range : <=1.0. The reference range was not used to interpret this result as normal/abnormal . [facility] CenterFojjjrpNOPINUVVZO8228-24-44 09:58:00 Test Item Value Reference Range Interpretation Comments Sed Rate (test code = 30 See_Comment [Auto mated message] The Sed Rate) system which ge nerated this result transmit garrett reference range : <=15. The reference range was not used to interpr et this result as cassie l/abnormal. [facility] CenterLoojhggQRJUWZMQWJ9577-63-20 09:58:00 Test Item Value Reference Range Interpretation Comments Microcyte (test code = 1+ *ABN*(05/12/18 Microcyte) 4:58 AM) [facility]QsrwhubCSFGAQCPIM9591-93-43 09:58:00 Test Item Value Reference Range Interpretation Comments C-REACTIVE PROTEIN (test code = 9.8 C-REACTIVE PROTEIN) [facility]2019-03-09 10:50:00 Test Item Value Reference Range Interpretation Comments Bili Indirect Unable to See_Comment [Automated (test code = Bili Calculate message] T he system Indirect) which generated this result transmitted reference range : <=1.0. The reference range was not used to interpret this result as normal/abnormal . [facility]2019-03-09 10:50:00 Test Item Value Reference Range Interpretation Comments Bili Direct (test code no gt See_Comment [Aut omated message] The = Bili Direct) system which generated this result tra nsmitted reference range : <=0.3. The reference r ondina was not used to int erpret this result as cassie l/abnormal. [facility] CenterTlwkeyvXTCTBAMDMB6718-08-93 10:50:00 Test Item Value Reference Range Interpretation Comments Sed Rate (test code = 34 See_Comment [Auto mated message] The Sed Rate) system which ge nerated this result transmit garrett reference range : <=15. The reference range was not used to interpr et this result as cassie l/abnormal. [facility] CenterOcbpxreDJJGADPAGT1759-75-63 10:50:00 Test Item Value Reference Range Interpretation Comments Microcyte (test code = 1+ *ABN*(05/11/18 4:50 Microcyte) AM) [facility]zgxmmzCPKPVODUTM9807-78-23 10:50:00 Test Item Value Reference Range Interpretation Comments C-REACTIVE PROTEIN (test code = 8.7 C-REACTIVE PROTEIN) [facility]2019-03-09 10:50:00 Test Item Value Reference Range Interpretation Comments Bili Indirect Unable to See_Comment [Automated (test code = Bili Calculate message] T he system Indirect) which generated this result transmitted reference range : <=1.0. The reference range was not used to interpret this result as normal/abnormal . [facility]2019-03-09 10:50:00 Test Item Value Reference Range Interpretation Comments Bili Direct (test code no gt See_Comment [Aut omated message] The = Bili Direct) system which generated this result tra nsmitted reference range : <=0.3. The reference r ondina was not used to int erpret this result as cassie l/abnormal. [facility] CenterFgqwkieWTCRDSCNOJ0032-35-81 10:50:00 Test Item Value Reference Range Interpretation Comments Sed Rate (test code = 34 See_Comment [Auto mated message] The Sed Rate) system which ge nerated this result transmit garrett reference range : <=15. The reference range was not used to interpr et this result as cassie l/abnormal. [facility] CenterZwywlijWYYCZHZFPP8511-82-38 10:50:00 Test Item Value Reference Range Interpretation Comments Microcyte (test code = 1+ *ABN*(05/11/18 4:50 Microcyte) AM) [facility] HospitalBmusilbIUVVLKVHNC4488-47-01 10:50:00 Test Item Value Reference Range Interpretation Comments C-REACTIVE PROTEIN (test code = 8.7 C-REACTIVE PROTEIN) [facility]2019-03-09 10:50:00 Test Item Value Reference Range Interpretation Comments Bili Indirect Unable to See_Comment [Automated (test code = Bili Calculate message] T he system Indirect) which generated this result transmitted reference range : <=1.0. The reference range was not used to interpret this result as normal/abnormal . [facility]2019-03-09 10:50:00 Test Item Value Reference Range Interpretation Comments Bili Direct (test code no gt See_Comment [Aut omated message] The = Bili Direct) system which generated this result tra nsmitted reference range : <=0.3. The reference r ondina was not used to int erpret this result as cassie l/abnormal. [facility] CenterDztrichRTZEHXDZYB7167-70-21 10:50:00 Test Item Value Reference Range Interpretation Comments Sed Rate (test code = 34 See_Comment [Auto mated message] The Sed Rate) system which ge nerated this result transmit garrett reference range : <=15. The reference range was not used to interpr et this result as cassie l/abnormal. [facility] CenterTjzeqrbANGZBEGMQK6147-64-89 10:50:00 Test Item Value Reference Range Interpretation Comments Microcyte (test code = 1+ *ABN*(05/11/18 4:50 Microcyte) AM) [facility]peahqwRGQPAGVRUW1086-49-47 10:50:00 Test Item Value Reference Range Interpretation Comments C-REACTIVE PROTEIN (test code = 8.7 C-REACTIVE PROTEIN) [facility] [id number] 10:50:00 Test Item Value Reference Range Interpretation Comments Bili Indirect Unable to See_Comment [Automated (test code = Bili Calculate message] T he system Indirect) which generated this result transmitted reference range : <=1.0. The reference range was not used to interpret this result as normal/abnormal . [facility]2019-03-09 10:50:00 Test Item Value Reference Range Interpretation Comments Bili Direct (test code no gt See_Comment [Aut omated message] The = Bili Direct) system which generated this result tra nsmitted reference range : <=0.3. The reference r ondina was not used to int erpret this result as cassie l/abnormal. [facility] CenterUudnicoZHIAYGSAZT7875-25-98 10:50:00 Test Item Value Reference Range Interpretation Comments Sed Rate (test code = 34 See_Comment [Auto mated message] The Sed Rate) system which ge nerated this result transmit garrett reference range : <=15. The reference range was not used to interpr et this result as cassie l/abnormal. [facility] CenterEvkynqcPFOYDVXAMO3022-54-88 10:50:00 Test Item Value Reference Range Interpretation Comments Microcyte (test code = 1+ *ABN*(05/11/18 4:50 Microcyte) AM) [facility]AfjxwpnXNXFMDAJVX2704-70-38 10:50:00 Test Item Value Reference Range Interpretation Comments C-REACTIVE PROTEIN (test code = 8.7 C-REACTIVE PROTEIN) [facility] HospitalJASBIR:SUSC:PT:ISOLATE:ORDQN:[id number] 23:28:00 Test Item Value Reference Range Interpretation Comments Gram Stain Report Rare WBC's No Organisms (test code = Gram Seen Stain Report) Sonu BeyannMEROPENEM:SUSC:PT:ISOLATE:ORDQN:[id number] 23:28:00 Test Item Value Reference Range Interpretation Comments Culture: Growth In Subculture Broth Wound/Abscess Only : Staphylococcus w/Gram Stain (test Species, Not S. aureus code = Culture: Wound/Abscess w/Gram Stain) [facility] SoteroannMEROPENEM:SUSC:PT:ISOLATE:ORDQN:[id number] 23:28:00 Test Item Value Reference Range Interpretation Comments Staphylococcus Species, Staphylococcus Not S. aureus (test Species, Not S. aureus code = Staphylococcus Species, Not S. aureus) Sonu BeyannMEROPENEM:SUSC:PT:ISOLATE:ORDQN:[id number] 23:28:00 Test Item Value Reference Range Interpretation Comments Gram Stain Report Rare WBC's No Organisms (test code = Gram Seen Stain Report) Sonu eByannMEROPENEM:SUSC:PT:ISOLATE:ORDQN:[id number] 23:28:00 Test Item Value Reference Range Interpretation Comments Culture: Growth In Subculture Broth Wound/Abscess Only : Staphylococcus w/Gram Stain (test Species, Not S. aureus code = Culture: Wound/Abscess w/Gram Stain) [facility] SoteroannMEROPENEM:SUSC:PT:ISOLATE:ORDQN:[id number] 23:28:00 Test Item Value Reference Range Interpretation Comments Staphylococcus Species, Staphylococcus Not S. aureus (test Species, Not S. aureus code = Staphylococcus Species, Not S. aureus) Sonu BeyannMEROPENEM:SUSC:PT:ISOLATE:ORDQN:[id number] 23:28:00 Test Item Value Reference Range Interpretation Comments Gram Stain Report Rare WBC's No Organisms (test code = Gram Seen Stain Report) [facility] SoteroannMEROPENEM:SUSC:PT:ISOLATE:ORDQN:[id number] 23:28:00 Test Item Value Reference Range Interpretation Comments Culture: Growth In Subculture Broth Wound/Abscess Only : Staphylococcus w/Gram Stain (test Species, Not S. aureus code = Culture: Wound/Abscess w/Gram Stain) Sonu BautistaNEM:SUSC:PT:ISOLATE:ORDQN:[id number] 23:28:00 Test Item Value Reference Range Interpretation Comments Staphylococcus Species, Staphylococcus Not S. aureus (test Species, Not S. aureus code = Staphylococcus Species, Not S. aureus) Sonu BeyMimaNEM:SUSC:PT:ISOLATE:ORDQN:[id number] 23:28:00 Test Item Value Reference Range Interpretation Comments Gram Stain Report Rare WBC's No Organisms (test code = Gram Seen Stain Report) oSnu SoteroYuly:SUSC:PT:ISOLATE:ORDQN:[id number] 23:28:00 Test Item Value Reference Range Interpretation Comments Culture: Growth In Subculture Broth Wound/Abscess Only : Staphylococcus w/Gram Stain (test Species, Not S. aureus code = Culture: Wound/Abscess w/Gram Stain) Sonu SoteroYuly:ODALYSC:PT:ISOLATE:ORDQN:[id number] 23:28:00 Test Item Value Reference Range Interpretation Comments Staphylococcus Species, Staphylococcus Not S. aureus (test Species, Not S. aureus code = Staphylococcus Species, Not S. aureus) [facility] [id number] 17:06:00 Test Item Value Reference Range Interpretation Comments Procalcitonin Lvl (test no gt See_Comment [Au tomated message] code = Procalcitonin Lvl) Th e system which generated this result transmitted ref erence range: <=0.10. The reference range was not used to interpr et this result as normal/abnormal . [facility] [id number] 17:06:00 Test Item Value Reference Range Interpretation Comments Procalcitonin Lvl (test no gt See_Comment [Au tomated message] code = Procalcitonin Lvl) Th e system which generated this result transmitted ref erence range: <=0.10. The reference range was not used to interpr et this result as normal/abnormal . [facility] [id number] 17:06:00 Test Item Value Reference Range Interpretation Comments Procalcitonin Lvl (test no gt See_Comment [Au tomated message] code = Procalcitonin Lvl) Th e system which generated this result transmitted ref erence range: <=0.10. The reference range was not used to interpr et this result as normal/abnormal . [facility]2019-03-08 17:06:00 Test Item Value Reference Range Interpretation Comments Procalcitonin Lvl (test no gt See_Comment [Au tomated message] code = Procalcitonin Lvl) Th e system which generated this result transmitted ref erence range: <=0.10. The reference range was not used to interpr et this result as normal/abnormal . [facility] CenterMrbsutbHEDKRVAQLH7556-67-06 09:26:00 Test Item Value Reference Range Interpretation Comments Microcyte (test code = 1+ *ABN*(05/10/18 3:26 Microcyte) AM) [facility] CenterQcyhmbjEDIQAVTXRB5402-63-25 09:26:00 Test Item Value Reference Range Interpretation Comments Microcyte (test code = 1+ *ABN*(05/10/18 3:26 Microcyte) AM) [facility] CenterBwrjpbmXFMYSHTOAZ9597-66-14 09:26:00 Test Item Value Reference Range Interpretation Comments Microcyte (test code = 1+ *ABN*(05/10/18 3:26 Microcyte) AM) [facility] CenterMpsacxaYQLARLRJFK0388-77-57 09:26:00 Test Item Value Reference Range Interpretation Comments Microcyte (test code = 1+ *ABN*(05/10/18 3:26 Microcyte) AM) [facility] CenterRnjooyxKSRFELTJSP5490-38-58 20:34:00 Test Item Value Reference Range Interpretation Comments Plt Morph (test code = Normal (05/09/18 2:34 PM) Plt Morph) [facility] CenterWhjugmiYEJSPCALHS4863-33-69 20:34:00 Test Item Value Reference Range Interpretation Comments Plt Morph (test code = Normal (05/09/18 2:34 PM) Plt Morph) [facility] CenterLallrtnNUHOIVIZJZ0868-92-02 20:34:00 Test Item Value Reference Range Interpretation Comments Plt Morph (test code = Normal (05/09/18 2:34 PM) Plt Morph) [facility] CenterHgmsbbjZKZQHGZSTW1731-80-08 20:34:00 Test Item Value Reference Range Interpretation Comments Plt Morph (test code = Normal (05/09/18 2:34 PM) Plt Morph) [facility] HospitalCARDIMARSHFIELD MED[facility] CENTERDBBCDHL1488-29-65 10:47:00 Test Item Value Reference Range Interpretation Comments BNP (test code = BNP) 288 [facility]2018-12-28 10:47:00 Test Item Value Reference Range Interpretation Comments Phosphorus (test code = Phosphorus) 3.3 2.5-4.5 [facility]2018-12-28 10:47:00 Test Item Value Reference Range Interpretation Comments Magnesium Lvl (test code = Magnesium 2.2 1.8-2.4 Lvl) [facility]2018-12-28 10:47:00 Test Item Value Reference Range Interpretation Comments Albumin Lvl (test code = Albumin Lvl) 2.3 3.5-5.0 [facility]2018-12-28 10:47:00 Test Item Value Reference Range Interpretation Comments Creatinine Lvl (test code = Creatinine 0.81 0.50-1.40 Lvl) [facility]2018-12-28 10:47:00 Test Item Value Reference Range Interpretation Comments ALT (test code = ALT) 14 See_Comment [Auto mated message] The system which ge nerated this result transmit garrett reference range : <=65. The reference range was not used to interpr et this result as cassie l/abnormal. [facility]2018-12-28 10:47:00 Test Item Value Reference Range Interpretation Comments AST (test code = AST) 9 See_Comment [Auto mated message] The system which ge nerated this result transmit garrett reference range : <=37. The reference range was not used to interpr et this result as cassie l/abnormal. [facility]2018-12-28 10:47:00 Test Item Value Reference Range Interpretation Comments eGFR (test code = eGFR) 97 [facility]2018-12-28 10:47:00 Test Item Value Reference Range Interpretation Comments Sodium Lvl (test code = Sodium Lvl) 143 135-145 [facility]2018-12-28 10:47:00 Test Item Value Reference Range Interpretation Comments Potassium Lvl (test code = Potassium 3.3 3.5-5.1 Lvl) [facility]2018-12-28 10:47:00 Test Item Value Reference Range Interpretation Comments Chloride Lvl (test code = Chloride Lvl) 107 95-109 [facility]2018-12-28 10:47:00 Test Item Value Reference Range Interpretation Comments Total Protein (test code = Total 6.7 6.4-8.4 Protein) [facility]2018-12-28 10:47:00 Test Item Value Reference Range Interpretation Comments Bili Total (test code = Bili Total) 0.7 0.2-1.3 [facility]2018-12-28 10:47:00 Test Item Value Reference Range Interpretation Comments Calcium Lvl (test code = Calcium Lvl) 8.3 8.5-10.5 [facility]2018-12-28 10:47:00 Test Item Value Reference Range Interpretation Comments CO2 (test code = CO2) 29 24-32 [facility]2018-12-28 10:47:00 Test Item Value Reference Range Interpretation Comments BUN (test code = BUN) 14 7-22 [facility]2018-12-28 10:47:00 Test Item Value Reference Range Interpretation Comments Glucose Lvl (test code = Glucose Lvl) 128 70-99 [facility]2018-12-28 10:47:00 Test Item Value Reference Range Interpretation Comments Alk Phos (test code = Alk Phos) 100 39-136 [facility]2018-12-28 10:47:00 Test Item Value Reference Range Interpretation Comments B/C Ratio (test code = B/C Ratio) 17 1 6-25 [facility]2018-12-28 10:47:00 Test Item Value Reference Range Interpretation Comments Globulin (test code = Globulin) 4.4 2.7-4.2 [facility]2018-12-28 10:47:00 Test Item Value Reference Range Interpretation Comments A/G Ratio (test code = A/G Ratio) 0.5 1 0.7-1.6 [facility]2018-12-28 10:47:00 Test Item Value Reference Range Interpretation Comments AGAP (test code = AGAP) 10.3 10.0-20.0 [facility] CenterMkmrnvaNMZAKVWUSE7135-73-04 10:47:00 Test Item Value Reference Range Interpretation Comments Microcyte (test code = 1+ *ABN*(03/01/18 Microcyte) 4:47 AM) [facility] CenterYmgoyqdNYHFYRYJMT4466-86-11 10:47:00 Test Item Value Reference Range Interpretation Comments Lymphocytes # (test code = Lymphocytes 1.4 1.0-5.5 #) [facility] CenterMftnntbEWLKDKHLDJ1339-87-42 10:47:00 Test Item Value Reference Range Interpretation Comments Monocytes # (test code 0.8 See_Comment [Aut omated message] The = Monocytes #) system which generated this result tra nsmitted reference range : <=0.8. The reference r ondina was not used to int erpret this result as normal/abnormal . [facility] CenterZdiqpshGOQXXMYICN4354-03-67 10:47:00 Test Item Value Reference Range Interpretation Comments Segs (test code = Segs) 78.3 45.0-75.0 [facility] CenterRapmazmFFAUZSNSIH5679-03-87 10:47:00 Test Item Value Reference Range Interpretation Comments Basophils (test code = 0.4 See_Comment [Aut omated message] The Basophils) system which ge nerated this result tra nsmitted reference range : <=1.0. The reference r ondina was not used to int erpret this result as normal/abnormal . [facility] CenterRcokosiLCMLBGKFPY5753-62-25 10:47:00 Test Item Value Reference Range Interpretation Comments Neutrophils # (test code = Neutrophils 8.1 1.5-8.1 #) [facility] CenterMazqlyeLASBOABVZU8787-02-94 10:47:00 Test Item Value Reference Range Interpretation Comments Monocytes (test code = Monocytes) 7.9 2.0-12.0 [facility] CenterRvtbzmnWCKXXGBRSK7371-31-84 10:47:00 Test Item Value Reference Range Interpretation Comments Lymphocytes (test code = Lymphocytes) 13.4 20.0-40.0 [facility] CenterSibsjawBMPUCRGSDR5158-25-33 10:47:00 Test Item Value Reference Range Interpretation Comments Hct (test code = Hct) 27.0 42.0-54.0 [facility] CenterDfcizsqZYHQUOLFTL4368-31-53 10:47:00 Test Item Value Reference Range Interpretation Comments MCV (test code = MCV) 78.7 80.0-94.0 [facility] CenterPrimkrrVYXPUVXWOH4283-84-80 10:47:00 Test Item Value Reference Range Interpretation Comments MCHC (test code = MCHC) 32.7 32.0-36.0 [facility] CenterKtnzdhoHWGZHSOBEV8455-12-17 10:47:00 Test Item Value Reference Range Interpretation Comments MCH (test code = MCH) 25.8 pg 27.0-31.0 [facility] CenterJcsprfjDMGYEQEART8527-48-08 10:47:00 Test Item Value Reference Range Interpretation Comments MPV (test code = MPV) 8.2 7.4-10.4 [facility]CvlslbcOJLUITNKPI4053-04-90 10:47:00 Test Item Value Reference Range Interpretation Comments Platelet (test code = Platelet) 475 133-450 [facility] HospitalJhhduziTIRUDPSDYR4964-51-59 10:47:00 Test Item Value Reference Range Interpretation Comments RDW (test code = RDW) 17.9 11.5-14.5 [facility] HospitalCyzqqyoFDLXXWSNWP5676-18-65 10:47:00 Test Item Value Reference Range Interpretation Comments RBC (test code = RBC) 3.42 4.70-6.10 [facility] HospitalHtwnhbeEIVJEDTASD7135-91-60 10:47:00 Test Item Value Reference Range Interpretation Comments Hgb (test code = Hgb) 8.8 14.0-18.0 [facility] HospitalIgymdbgIRALFJCXGT3740-62-21 10:47:00 Test Item Value Reference Range Interpretation Comments WBC (test code = WBC) 10.3 3.7-10.4 [facility]CARDIAC [id number] 10:47:00 Test Item Value Reference Range Interpretation Comments BNP (test code = BNP) 288 [facility] HospitalCHEM [id number] 10:47:00 Test Item Value Reference Range Interpretation Comments Phosphorus (test code = Phosphorus) 3.3 2.5-4.5 [facility] HospitalCHEM [id number] 10:47:00 Test Item Value Reference Range Interpretation Comments Magnesium Lvl (test code = Magnesium 2.2 1.8-2.4 Lvl) [facility] [id number] 10:47:00 Test Item Value Reference Range Interpretation Comments Albumin Lvl (test code = Albumin Lvl) 2.3 3.5-5.0 [facility] [id number] 10:47:00 Test Item Value Reference Range Interpretation Comments Creatinine Lvl (test code = Creatinine 0.81 0.50-1.40 Lvl) [facility] [id number] 10:47:00 Test Item Value Reference Range Interpretation Comments ALT (test code = ALT) 14 See_Comment [Auto mated message] The system which ge nerated this result transmit garrett reference range : <=65. The reference range was not used to interpr et this result as cassie l/abnormal. [facility]2018-12-28 10:47:00 Test Item Value Reference Range Interpretation Comments AST (test code = AST) 9 See_Comment [Auto mated message] The system which ge nerated this result transmit garrett reference range : <=37. The reference range was not used to interpr et this result as cassie l/abnormal. [facility]2018-12-28 10:47:00 Test Item Value Reference Range Interpretation Comments eGFR (test code = eGFR) 97 [facility]2018-12-28 10:47:00 Test Item Value Reference Range Interpretation Comments Sodium Lvl (test code = Sodium Lvl) 143 135-145 [facility]2018-12-28 10:47:00 Test Item Value Reference Range Interpretation Comments Potassium Lvl (test code = Potassium 3.3 3.5-5.1 Lvl) [facility]2018-12-28 10:47:00 Test Item Value Reference Range Interpretation Comments Chloride Lvl (test code = Chloride Lvl) 107 95-109 [facility]2018-12-28 10:47:00 Test Item Value Reference Range Interpretation Comments Total Protein (test code = Total 6.7 6.4-8.4 Protein) [facility]2018-12-28 10:47:00 Test Item Value Reference Range Interpretation Comments Bili Total (test code = Bili Total) 0.7 0.2-1.3 [facility]2018-12-28 10:47:00 Test Item Value Reference Range Interpretation Comments Calcium Lvl (test code = Calcium Lvl) 8.3 8.5-10.5 [facility]2018-12-28 10:47:00 Test Item Value Reference Range Interpretation Comments CO2 (test code = CO2) 29 24-32 [facility]2018-12-28 10:47:00 Test Item Value Reference Range Interpretation Comments BUN (test code = BUN) 14 7-22 [facility]2018-12-28 10:47:00 Test Item Value Reference Range Interpretation Comments Glucose Lvl (test code = Glucose Lvl) 128 70-99 [facility]2018-12-28 10:47:00 Test Item Value Reference Range Interpretation Comments Alk Phos (test code = Alk Phos) 100 39-136 [facility]2018-12-28 10:47:00 Test Item Value Reference Range Interpretation Comments B/C Ratio (test code = B/C Ratio) 17 1 6-25 [facility]2018-12-28 10:47:00 Test Item Value Reference Range Interpretation Comments Globulin (test code = Globulin) 4.4 2.7-4.2 [facility]2018-12-28 10:47:00 Test Item Value Reference Range Interpretation Comments A/G Ratio (test code = A/G Ratio) 0.5 1 0.7-1.6 [facility]2018-12-28 10:47:00 Test Item Value Reference Range Interpretation Comments AGAP (test code = AGAP) 10.3 10.0-20.0 [facility]kwdkviLXOIKQXCBI4484-46-15 10:47:00 Test Item Value Reference Range Interpretation Comments Microcyte (test code = 1+ *ABN*(03/01/18 Microcyte) 4:47 AM) [facility] CenterYjelcfoVSAKGIMOGB9572-17-55 10:47:00 Test Item Value Reference Range Interpretation Comments Lymphocytes # (test code = Lymphocytes 1.4 1.0-5.5 #) [facility] CenterHoyikglQOTZRNOGDG2156-49-53 10:47:00 Test Item Value Reference Range Interpretation Comments Monocytes # (test code 0.8 See_Comment [Aut omated message] The = Monocytes #) system which generated this result tra nsmitted reference range : <=0.8. The reference r ondina was not used to int erpret this result as normal/abnormal . [facility] CenterSdbvmyyDPCLTEFNSF7719-33-13 10:47:00 Test Item Value Reference Range Interpretation Comments Segs (test code = Segs) 78.3 45.0-75.0 [facility] CenterWepmbpzAPDOSVSAUR0845-60-34 10:47:00 Test Item Value Reference Range Interpretation Comments Basophils (test code = 0.4 See_Comment [Aut omated message] The Basophils) system which ge nerated this result tra nsmitted reference range : <=1.0. The reference r ondina was not used to int erpret this result as normal/abnormal . [facility] CenterGflwtqwDHLZKUBJKX7277-06-10 10:47:00 Test Item Value Reference Range Interpretation Comments Neutrophils # (test code = Neutrophils 8.1 1.5-8.1 #) [facility] CenterYjhssfcBNYCBFOTAV2434-59-44 10:47:00 Test Item Value Reference Range Interpretation Comments Monocytes (test code = Monocytes) 7.9 2.0-12.0 [facility] CenterPgbzcvpHGWAIBTMEI8298-74-40 10:47:00 Test Item Value Reference Range Interpretation Comments Lymphocytes (test code = Lymphocytes) 13.4 20.0-40.0 [facility] CenterIetiokqFRVWTTZTET4583-74-93 10:47:00 Test Item Value Reference Range Interpretation Comments Hct (test code = Hct) 27.0 42.0-54.0 [facility] CenterZdcuvsmWGBECMCMTJ0713-69-28 10:47:00 Test Item Value Reference Range Interpretation Comments MCV (test code = MCV) 78.7 80.0-94.0 [facility] CenterAerddnbHCNHXSRONV8145-84-70 10:47:00 Test Item Value Reference Range Interpretation Comments MCHC (test code = MCHC) 32.7 32.0-36.0 [facility] CenterScyhrflRWVIZCCEHR6746-75-49 10:47:00 Test Item Value Reference Range Interpretation Comments MCH (test code = MCH) 25.8 pg 27.0-31.0 [facility] CenterIbpbsnjIKXOLHTCCQ0555-17-97 10:47:00 Test Item Value Reference Range Interpretation Comments MPV (test code = MPV) 8.2 7.4-10.4 [facility] CenterGigkpdrLBFRXFEDSW9819-67-67 10:47:00 Test Item Value Reference Range Interpretation Comments Platelet (test code = Platelet) 475 133-450 [facility] CenterNiaikmuAWAJFXOUKH0637-74-91 10:47:00 Test Item Value Reference Range Interpretation Comments RDW (test code = RDW) 17.9 11.5-14.5 [facility] CenterOrcyyozCILRODJESP6465-81-78 10:47:00 Test Item Value Reference Range Interpretation Comments RBC (test code = RBC) 3.42 4.70-6.10 [facility] CenterQwlkuapSXXOICHWLV7890-99-29 10:47:00 Test Item Value Reference Range Interpretation Comments Hgb (test code = Hgb) 8.8 14.0-18.0 [facility] CenterIrzrpfeTFWWSVKIJG2417-43-33 10:47:00 Test Item Value Reference Range Interpretation Comments WBC (test code = WBC) 10.3 3.7-10.4 [facility] [id number] 10:47:00 Test Item Value Reference Range Interpretation Comments BNP (test code = BNP) 288 [facility]2018-12-28 10:47:00 Test Item Value Reference Range Interpretation Comments Phosphorus (test code = Phosphorus) 3.3 2.5-4.5 [facility]2018-12-28 10:47:00 Test Item Value Reference Range Interpretation Comments Magnesium Lvl (test code = Magnesium 2.2 1.8-2.4 Lvl) [facility]2018-12-28 10:47:00 Test Item Value Reference Range Interpretation Comments Albumin Lvl (test code = Albumin Lvl) 2.3 3.5-5.0 [facility]2018-12-28 10:47:00 Test Item Value Reference Range Interpretation Comments Creatinine Lvl (test code = Creatinine 0.81 0.50-1.40 Lvl) [facility]2018-12-28 10:47:00 Test Item Value Reference Range Interpretation Comments ALT (test code = ALT) 14 See_Comment [Auto mated message] The system which ge nerated this result transmit garrett reference range : <=65. The reference range was not used to interpr et this result as cassie l/abnormal. [facility]2018-12-28 10:47:00 Test Item Value Reference Range Interpretation Comments AST (test code = AST) 9 See_Comment [Auto mated message] The system which ge nerated this result transmit garrett reference range : <=37. The reference range was not used to interpr et this result as cassie l/abnormal. [facility]2018-12-28 10:47:00 Test Item Value Reference Range Interpretation Comments eGFR (test code = eGFR) 97 [facility]2018-12-28 10:47:00 Test Item Value Reference Range Interpretation Comments Sodium Lvl (test code = Sodium Lvl) 143 135-145 [facility]2018-12-28 10:47:00 Test Item Value Reference Range Interpretation Comments Potassium Lvl (test code = Potassium 3.3 3.5-5.1 Lvl) [facility]2018-12-28 10:47:00 Test Item Value Reference Range Interpretation Comments Chloride Lvl (test code = Chloride Lvl) 107 95-109 [facility]2018-12-28 10:47:00 Test Item Value Reference Range Interpretation Comments Total Protein (test code = Total 6.7 6.4-8.4 Protein) [facility]2018-12-28 10:47:00 Test Item Value Reference Range Interpretation Comments Bili Total (test code = Bili Total) 0.7 0.2-1.3 [facility]2018-12-28 10:47:00 Test Item Value Reference Range Interpretation Comments Calcium Lvl (test code = Calcium Lvl) 8.3 8.5-10.5 [facility]2018-12-28 10:47:00 Test Item Value Reference Range Interpretation Comments CO2 (test code = CO2) 29 24-32 [facility]2018-12-28 10:47:00 Test Item Value Reference Range Interpretation Comments BUN (test code = BUN) 14 7-22 [facility]2018-12-28 10:47:00 Test Item Value Reference Range Interpretation Comments Glucose Lvl (test code = Glucose Lvl) 128 70-99 [facility]2018-12-28 10:47:00 Test Item Value Reference Range Interpretation Comments Alk Phos (test code = Alk Phos) 100 39-136 [facility]2018-12-28 10:47:00 Test Item Value Reference Range Interpretation Comments B/C Ratio (test code = B/C Ratio) 17 1 6-25 [facility]2018-12-28 10:47:00 Test Item Value Reference Range Interpretation Comments Globulin (test code = Globulin) 4.4 2.7-4.2 [facility]2018-12-28 10:47:00 Test Item Value Reference Range Interpretation Comments A/G Ratio (test code = A/G Ratio) 0.5 1 0.7-1.6 [facility]2018-12-28 10:47:00 Test Item Value Reference Range Interpretation Comments AGAP (test code = AGAP) 10.3 10.0-20.0 [id number] 10:47:00 Test Item Value Reference Range Interpretation Comments Microcyte (test code = 1+ *ABN*(03/01/18 Microcyte) 4:47 AM) [facility] CenterLhgnnjfPVLDNESGET0460-06-53 10:47:00 Test Item Value Reference Range Interpretation Comments Lymphocytes # (test code = Lymphocytes 1.4 1.0-5.5 #) [facility] CenterDderfzlAJYKZOAZAT3015-39-38 10:47:00 Test Item Value Reference Range Interpretation Comments Monocytes # (test code 0.8 See_Comment [Aut omated message] The = Monocytes #) system which generated this result tra nsmitted reference range : <=0.8. The reference r ondina was not used to int erpret this result as normal/abnormal . [facility] CenterTfayldoQJBTAPOROI6141-01-60 10:47:00 Test Item Value Reference Range Interpretation Comments Segs (test code = Segs) 78.3 45.0-75.0 [facility] CenterSitkkoyKOIKRGLARB3658-44-67 10:47:00 Test Item Value Reference Range Interpretation Comments Basophils (test code = 0.4 See_Comment [Aut omated message] The Basophils) system which ge nerated this result tra nsmitted reference range : <=1.0. The reference r ondina was not used to int erpret this result as normal/abnormal . [facility] CenterHcdxrswVOQDXYXVMF0496-02-14 10:47:00 Test Item Value Reference Range Interpretation Comments Neutrophils # (test code = Neutrophils 8.1 1.5-8.1 #) [facility] CenterJmpualhHWSZUTKLYC7067-75-04 10:47:00 Test Item Value Reference Range Interpretation Comments Monocytes (test code = Monocytes) 7.9 2.0-12.0 [facility] CenterHvmufuuOCPXCDHJVB8668-95-71 10:47:00 Test Item Value Reference Range Interpretation Comments Lymphocytes (test code = Lymphocytes) 13.4 20.0-40.0 [facility] CenterOndoihjQUKFUDQKVA0218-07-14 10:47:00 Test Item Value Reference Range Interpretation Comments Hct (test code = Hct) 27.0 42.0-54.0 [facility] CenterQksvshrGXYGYEDMXW8931-05-51 10:47:00 Test Item Value Reference Range Interpretation Comments MCV (test code = MCV) 78.7 80.0-94.0 [facility] CenterInshoycCOKIWQSQSS3392-40-97 10:47:00 Test Item Value Reference Range Interpretation Comments MCHC (test code = MCHC) 32.7 32.0-36.0 [facility] CenterWkrpirmXMXHEYBSDD6838-10-65 10:47:00 Test Item Value Reference Range Interpretation Comments MCH (test code = MCH) 25.8 pg 27.0-31.0 [facility] HospitalWramrzqIMJSTCDTCF2779-60-14 10:47:00 Test Item Value Reference Range Interpretation Comments MPV (test code = MPV) 8.2 7.4-10.4 [facility] HospitalGmrwljjKEKZMMQLBA1684-24-34 10:47:00 Test Item Value Reference Range Interpretation Comments Platelet (test code = Platelet) 475 133-450 [facility] HospitalIvpnzsuPHQQXLZXAU9210-59-12 10:47:00 Test Item Value Reference Range Interpretation Comments RDW (test code = RDW) 17.9 11.5-14.5 [facility] CenterKmzgbyoVHBGCCQNVI1487-45-36 10:47:00 Test Item Value Reference Range Interpretation Comments RBC (test code = RBC) 3.42 4.70-6.10 [facility] HospitalHntkuhnFEJGURYDVI2574-08-65 10:47:00 Test Item Value Reference Range Interpretation Comments Hgb (test code = Hgb) 8.8 14.0-18.0 [facility] HospitalMsalefcCUTHUYOFTD3569-54-32 10:47:00 Test Item Value Reference Range Interpretation Comments WBC (test code = WBC) 10.3 3.7-10.4 [facility] UNPVOQF0671-65-02 10:47:00 Test Item Value Reference Range Interpretation Comments BNP (test code = BNP) 288 [facility] [id number] 10:47:00 Test Item Value Reference Range Interpretation Comments Phosphorus (test code = Phosphorus) 3.3 2.5-4.5 [facility] HospitalCHEM [id number] 10:47:00 Test Item Value Reference Range Interpretation Comments Magnesium Lvl (test code = Magnesium 2.2 1.8-2.4 Lvl) [facility] [id number] 10:47:00 Test Item Value Reference Range Interpretation Comments Albumin Lvl (test code = Albumin Lvl) 2.3 3.5-5.0 [facility] [id number] 10:47:00 Test Item Value Reference Range Interpretation Comments Creatinine Lvl (test code = Creatinine 0.81 0.50-1.40 Lvl) [facility] [id number] 10:47:00 Test Item Value Reference Range Interpretation Comments ALT (test code = ALT) 14 See_Comment [Auto mated message] The system which ge nerated this result transmit garrett reference range : <=65. The reference range was not used to interpr et this result as cassie l/abnormal. [facility]2018-12-28 10:47:00 Test Item Value Reference Range Interpretation Comments AST (test code = AST) 9 See_Comment [Auto mated message] The system which ge nerated this result transmit garrett reference range : <=37. The reference range was not used to interpr et this result as cassie l/abnormal. [facility]2018-12-28 10:47:00 Test Item Value Reference Range Interpretation Comments eGFR (test code = eGFR) 97 [facility]2018-12-28 10:47:00 Test Item Value Reference Range Interpretation Comments Sodium Lvl (test code = Sodium Lvl) 143 135-145 [facility]2018-12-28 10:47:00 Test Item Value Reference Range Interpretation Comments Potassium Lvl (test code = Potassium 3.3 3.5-5.1 Lvl) [facility]2018-12-28 10:47:00 Test Item Value Reference Range Interpretation Comments Chloride Lvl (test code = Chloride Lvl) 107 95-109 [facility]2018-12-28 10:47:00 Test Item Value Reference Range Interpretation Comments Total Protein (test code = Total 6.7 6.4-8.4 Protein) [facility]2018-12-28 10:47:00 Test Item Value Reference Range Interpretation Comments Bili Total (test code = Bili Total) 0.7 0.2-1.3 [facility]2018-12-28 10:47:00 Test Item Value Reference Range Interpretation Comments Calcium Lvl (test code = Calcium Lvl) 8.3 8.5-10.5 [facility]2018-12-28 10:47:00 Test Item Value Reference Range Interpretation Comments CO2 (test code = CO2) 29 -32 [facility]2018-12-28 10:47:00 Test Item Value Reference Range Interpretation Comments BUN (test code = BUN) 14 7-22 [facility]2018-12-28 10:47:00 Test Item Value Reference Range Interpretation Comments Glucose Lvl (test code = Glucose Lvl) 128 70-99 [facility]2018-12-28 10:47:00 Test Item Value Reference Range Interpretation Comments Alk Phos (test code = Alk Phos) 100 39-136 [facility]2018-12-28 10:47:00 Test Item Value Reference Range Interpretation Comments B/C Ratio (test code = B/C Ratio) 17 1 6-25 [facility]2018-12-28 10:47:00 Test Item Value Reference Range Interpretation Comments Globulin (test code = Globulin) 4.4 2.7-4.2 [facility]2018-12-28 10:47:00 Test Item Value Reference Range Interpretation Comments A/G Ratio (test code = A/G Ratio) 0.5 1 0.7-1.6 [facility]2018-12-28 10:47:00 Test Item Value Reference Range Interpretation Comments AGAP (test code = AGAP) 10.3 10.0-20.0 [facility] CenterKkbjpiyDKGOGSKZMI1232-12-61 10:47:00 Test Item Value Reference Range Interpretation Comments Microcyte (test code = 1+ *ABN*(03/01/18 Microcyte) 4:47 AM) [facility] CenterJtzvycuVJXSZKGLOR8404-22-83 10:47:00 Test Item Value Reference Range Interpretation Comments Lymphocytes # (test code = Lymphocytes 1.4 1.0-5.5 #) [facility] CenterSuvwieePTEKVSMQSX6816-41-99 10:47:00 Test Item Value Reference Range Interpretation Comments Monocytes # (test code 0.8 See_Comment [Aut omated message] The = Monocytes #) system which generated this result tra nsmitted reference range : <=0.8. The reference r ondina was not used to int erpret this result as normal/abnormal . [facility] CenterFuzkeefETPIQJICWX7723-64-65 10:47:00 Test Item Value Reference Range Interpretation Comments Segs (test code = Segs) 78.3 45.0-75.0 [facility] CenterPtywbvzGUACWZHJKY5405-73-76 10:47:00 Test Item Value Reference Range Interpretation Comments Basophils (test code = 0.4 See_Comment [Aut omated message] The Basophils) system which ge nerated this result tra nsmitted reference range : <=1.0. The reference r ondina was not used to int erpret this result as normal/abnormal . [facility] CenterHhjnnbmLAIWHACPBG2457-32-16 10:47:00 Test Item Value Reference Range Interpretation Comments Neutrophils # (test code = Neutrophils 8.1 1.5-8.1 #) [facility] CenterHfmvdveMZAIRAMHZX8224-80-75 10:47:00 Test Item Value Reference Range Interpretation Comments Monocytes (test code = Monocytes) 7.9 2.0-12.0 [facility] CenterIephjrgPXWFVQJKSV9725-54-02 10:47:00 Test Item Value Reference Range Interpretation Comments Lymphocytes (test code = Lymphocytes) 13.4 20.0-40.0 [facility] CenterTljejqeAQMMQRREQG3069-10-50 10:47:00 Test Item Value Reference Range Interpretation Comments Hct (test code = Hct) 27.0 42.0-54.0 [facility] CenterLeyisihYNGEORHOFT1289-86-78 10:47:00 Test Item Value Reference Range Interpretation Comments MCV (test code = MCV) 78.7 80.0-94.0 [facility] CenterIdgmtdiILCDEXAUJZ9166-22-37 10:47:00 Test Item Value Reference Range Interpretation Comments MCHC (test code = MCHC) 32.7 32.0-36.0 [facility] CenterNvtycghGOSXYIVZZP1916-23-82 10:47:00 Test Item Value Reference Range Interpretation Comments MCH (test code = MCH) 25.8 pg 27.0-31.0 [facility] CenterWhvizfnZHRUPNGTXU4941-59-00 10:47:00 Test Item Value Reference Range Interpretation Comments MPV (test code = MPV) 8.2 7.4-10.4 [facility] CenterFhkdphlWXVQCTYIMM1671-84-55 10:47:00 Test Item Value Reference Range Interpretation Comments Platelet (test code = Platelet) 558 280-450 [facility] CenterBzjmuanRBJQBQICVL3706-01-63 10:47:00 Test Item Value Reference Range Interpretation Comments RDW (test code = RDW) 17.9 11.5-14.5 [facility] CenterIzmymbuMEPMDXLNTM6842-54-55 10:47:00 Test Item Value Reference Range Interpretation Comments RBC (test code = RBC) 3.42 4.70-6.10 [facility] CenterImkclnuEFBKBUIALY4074-17-21 10:47:00 Test Item Value Reference Range Interpretation Comments Hgb (test code = Hgb) 8.8 14.0-18.0 [facility] HospitalPqaltzpWWLSDCMULW3873-20-43 10:47:00 Test Item Value Reference Range Interpretation Comments WBC (test code = WBC) 10.3 3.7-10.4 [facility] HospitalCARD[facility]AC [id number] 16:12:00 Test Item Value Reference Range Interpretation Comments Troponin-I (test code no gt See_Comment [Auto mated message] The = Troponin-I) system which g enerated this result transmit garrett reference range : <=0.40. The reference r ondina was not used to interpr et this result as cassie l/abnormal. [facility] [id number] 16:12:00 Test Item Value Reference Range Interpretation Comments Magnesium Lvl (test code = Magnesium 2.1 1.8-2.4 Lvl) [facility]2018-12-27 16:12:00 Test Item Value Reference Range Interpretation Comments Alk Phos (test code = Alk Phos) 132 39-136 [facility]2018-12-27 16:12:00 Test Item Value Reference Range Interpretation Comments Potassium Lvl (test code = Potassium 3.8 3.5-5.1 Lvl) [facility] [id number] 16:12:00 Test Item Value Reference Range Interpretation Comments Chloride Lvl (test code = Chloride Lvl) 108 95-109 [facility]2018-12-27 16:12:00 Test Item Value Reference Range Interpretation Comments Sodium Lvl (test code = Sodium Lvl) 141 135-145 [facility]2018-12-27 16:12:00 Test Item Value Reference Range Interpretation Comments eGFR (test code = eGFR) 96 [facility]2018-12-27 16:12:00 Test Item Value Reference Range Interpretation Comments B/C Ratio (test code = B/C Ratio) 7 1 6-25 [facility]2018-12-27 16:12:00 Test Item Value Reference Range Interpretation Comments AST (test code = AST) 15 See_Comment [Auto mated message] The system which ge nerated this result transmit garrett reference range : <=37. The reference range was not used to interpr et this result as cassie l/abnormal. [facility] HospitalConcept Inbox [id number] 16:12:00 Test Item Value Reference Range Interpretation Comments Creatinine Lvl (test code = Creatinine 0.83 0.50-1.40 Lvl) [facility]2018-12-27 16:12:00 Test Item Value Reference Range Interpretation Comments ALT (test code = ALT) 20 See_Comment [Auto mated message] The system which ge nerated this result transmit garrett reference range : <=65. The reference range was not used to interpr et this result as cassie l/abnormal. [facility]2018-12-27 16:12:00 Test Item Value Reference Range Interpretation Comments AGAP (test code = AGAP) 13.8 10.0-20.0 [place] [id number] 16:12:00 Test Item Value Reference Range Interpretation Comments Albumin Lvl (test code = Albumin Lvl) 2.5 3.5-5.0 [place] [id number] 16:12:00 Test Item Value Reference Range Interpretation Comments Glucose Lvl (test code = Glucose Lvl) 153 70-99 [facility]2018-12-27 16:12:00 Test Item Value Reference Range Interpretation Comments BUN (test code = BUN) 6 7-22 [place] [id number] 16:12:00 Test Item Value Reference Range Interpretation Comments CO2 (test code = CO2) 23 24-32 [facility]2018-12-27 16:12:00 Test Item Value Reference Range Interpretation Comments Calcium Lvl (test code = Calcium Lvl) 8.8 8.5-10.5 [facility]2018-12-27 16:12:00 Test Item Value Reference Range Interpretation Comments Bili Total (test code = Bili Total) 0.2 0.2-1.3 [facility]2018-12-27 16:12:00 Test Item Value Reference Range Interpretation Comments Total Protein (test code = Total 7.5 6.4-8.4 Protein) [facility]2018-12-27 16:12:00 Test Item Value Reference Range Interpretation Comments Globulin (test code = Globulin) 5.0 2.7-4.2 [place] [id number] 16:12:00 Test Item Value Reference Range Interpretation Comments A/G Ratio (test code = A/G Ratio) 0.5 1 0.7-1.6 [facility] [id number] 16:12:00 Test Item Value Reference Range Interpretation Comments Phosphorus (test code = Phosphorus) 2.9 2.5-4.5 [facility] [id number] 16:12:00 Test Item Value Reference Range Interpretation Comments Troponin-I (test code no gt See_Comment [Auto mated message] The = Troponin-I) system which g enerated this result transmit garrett reference range : <=0.40. The reference r ondina was not used to interpr et this result as cassie l/abnormal. [facility] IPM [place] [id number] 16:12:00 Test Item Value Reference Range Interpretation Comments Magnesium Lvl (test code = Magnesium 2.1 1.8-2.4 Lvl) [facility] [id number] 16:12:00 Test Item Value Reference Range Interpretation Comments Alk Phos (test code = Alk Phos) 132 39-136 [facility] [id number] 16:12:00 Test Item Value Reference Range Interpretation Comments Potassium Lvl (test code = Potassium 3.8 3.5-5.1 Lvl) [facility] [id number] 16:12:00 Test Item Value Reference Range Interpretation Comments Chloride Lvl (test code = Chloride Lvl) 108 95-109 [facility] [id number] 16:12:00 Test Item Value Reference Range Interpretation Comments Sodium Lvl (test code = Sodium Lvl) 141 135-145 [facility] [id number] 16:12:00 Test Item Value Reference Range Interpretation Comments eGFR (test code = eGFR) 96 [facility] [id number] 16:12:00 Test Item Value Reference Range Interpretation Comments B/C Ratio (test code = B/C Ratio) 7 1 6-25 [facility] [id number] 16:12:00 Test Item Value Reference Range Interpretation Comments AST (test code = AST) 15 See_Comment [Auto mated message] The system which ge nerated this result transmit garrett reference range : <=37. The reference range was not used to interpr et this result as cassie l/abnormal. [facility] IP[facility] [place] [id number] 16:12:00 Test Item Value Reference Range Interpretation Comments Creatinine Lvl (test code = Creatinine 0.83 0.50-1.40 Lvl) [facility]2018-12-27 16:12:00 Test Item Value Reference Range Interpretation Comments ALT (test code = ALT) 20 See_Comment [Auto mated message] The system which ge nerated this result transmit garrett reference range : <=65. The reference range was not used to interpr et this result as cassie l/abnormal. [facility]2018-12-27 16:12:00 Test Item Value Reference Range Interpretation Comments AGAP (test code = AGAP) 13.8 10.0-20.0 [facility]2018-12-27 16:12:00 Test Item Value Reference Range Interpretation Comments Albumin Lvl (test code = Albumin Lvl) 2.5 3.5-5.0 [facility]2018-12-27 16:12:00 Test Item Value Reference Range Interpretation Comments Glucose Lvl (test code = Glucose Lvl) 153 70-99 [facility]2018-12-27 16:12:00 Test Item Value Reference Range Interpretation Comments BUN (test code = BUN) 6 7-22 [facility]2018-12-27 16:12:00 Test Item Value Reference Range Interpretation Comments CO2 (test code = CO2) 23 24-32 [facility]2018-12-27 16:12:00 Test Item Value Reference Range Interpretation Comments Calcium Lvl (test code = Calcium Lvl) 8.8 8.5-10.5 [facility]2018-12-27 16:12:00 Test Item Value Reference Range Interpretation Comments Bili Total (test code = Bili Total) 0.2 0.2-1.3 [facility]2018-12-27 16:12:00 Test Item Value Reference Range Interpretation Comments Total Protein (test code = Total 7.5 6.4-8.4 Protein) [facility]2018-12-27 16:12:00 Test Item Value Reference Range Interpretation Comments Globulin (test code = Globulin) 5.0 2.7-4.2 [facility]2018-12-27 16:12:00 Test Item Value Reference Range Interpretation Comments A/G Ratio (test code = A/G Ratio) 0.5 1 0.7-1.6 [facility] [id number] 16:12:00 Test Item Value Reference Range Interpretation Comments Phosphorus (test code = Phosphorus) 2.9 2.5-4.5 [facility] [id number] 16:12:00 Test Item Value Reference Range Interpretation Comments Troponin-I (test code no gt See_Comment [Auto mated message] The = Troponin-I) system which g enerated this result transmit garrett reference range : <=0.40. The reference r ondina was not used to interpr et this result as cassie l/abnormal. [facility] [id number] 16:12:00 Test Item Value Reference Range Interpretation Comments Magnesium Lvl (test code = Magnesium 2.1 1.8-2.4 Lvl) [facility]2018-12-27 16:12:00 Test Item Value Reference Range Interpretation Comments Alk Phos (test code = Alk Phos) 132 39-136 [facility] [id number] 16:12:00 Test Item Value Reference Range Interpretation Comments Potassium Lvl (test code = Potassium 3.8 3.5-5.1 Lvl) [facility] [id number] 16:12:00 Test Item Value Reference Range Interpretation Comments Chloride Lvl (test code = Chloride Lvl) 108 95-109 [facility] [id number] 16:12:00 Test Item Value Reference Range Interpretation Comments Sodium Lvl (test code = Sodium Lvl) 141 135-145 [facility] [id number] 16:12:00 Test Item Value Reference Range Interpretation Comments eGFR (test code = eGFR) 96 [facility] [id number] 16:12:00 Test Item Value Reference Range Interpretation Comments B/C Ratio (test code = B/C Ratio) 7 1 6-25 [facility] [id number] 16:12:00 Test Item Value Reference Range Interpretation Comments AST (test code = AST) 15 See_Comment [Auto mated message] The system which ge nerated this result transmit garrett reference range : <=37. The reference range was not used to interpr et this result as cassie l/abnormal. [facility] [id number] 16:12:00 Test Item Value Reference Range Interpretation Comments Creatinine Lvl (test code = Creatinine 0.83 0.50-1.40 Lvl) [facility]2018-12-27 16:12:00 Test Item Value Reference Range Interpretation Comments ALT (test code = ALT) 20 See_Comment [Auto mated message] The system which ge nerated this result transmit garrett reference range : <=65. The reference range was not used to interpr et this result as cassie l/abnormal. [facility]2018-12-27 16:12:00 Test Item Value Reference Range Interpretation Comments AGAP (test code = AGAP) 13.8 10.0-20.0 [place] [id number] 16:12:00 Test Item Value Reference Range Interpretation Comments Albumin Lvl (test code = Albumin Lvl) 2.5 3.5-5.0 [facility]2018-12-27 16:12:00 Test Item Value Reference Range Interpretation Comments Glucose Lvl (test code = Glucose Lvl) 153 70-99 [facility]2018-12-27 16:12:00 Test Item Value Reference Range Interpretation Comments BUN (test code = BUN) 6 7-22 [facility]2018-12-27 16:12:00 Test Item Value Reference Range Interpretation Comments CO2 (test code = CO2) 23 24-32 [facility]2018-12-27 16:12:00 Test Item Value Reference Range Interpretation Comments Calcium Lvl (test code = Calcium Lvl) 8.8 8.5-10.5 [facility]2018-12-27 16:12:00 Test Item Value Reference Range Interpretation Comments Bili Total (test code = Bili Total) 0.2 0.2-1.3 [facility]2018-12-27 16:12:00 Test Item Value Reference Range Interpretation Comments Total Protein (test code = Total 7.5 6.4-8.4 Protein) [facility]2018-12-27 16:12:00 Test Item Value Reference Range Interpretation Comments Globulin (test code = Globulin) 5.0 2.7-4.2 [place] [id number] 16:12:00 Test Item Value Reference Range Interpretation Comments A/G Ratio (test code = A/G Ratio) 0.5 1 0.7-1.6 [facility] [id number] 16:12:00 Test Item Value Reference Range Interpretation Comments Phosphorus (test code = Phosphorus) 2.9 2.5-4.5 [facility] [id number] 16:12:00 Test Item Value Reference Range Interpretation Comments Troponin-I (test code no gt See_Comment [Auto mated message] The = Troponin-I) system which g enerated this result transmit garrett reference range : <=0.40. The reference r ondina was not used to interpr et this result as cassie l/abnormal. [facility] [place] [place] [id number] 16:12:00 Test Item Value Reference Range Interpretation Comments Magnesium Lvl (test code = Magnesium 2.1 1.8-2.4 Lvl) [facility] [id number] 16:12:00 Test Item Value Reference Range Interpretation Comments Alk Phos (test code = Alk Phos) 132 39-136 [facility] [id number] 16:12:00 Test Item Value Reference Range Interpretation Comments Potassium Lvl (test code = Potassium 3.8 3.5-5.1 Lvl) [facility] [place] [id number] 16:12:00 Test Item Value Reference Range Interpretation Comments Chloride Lvl (test code = Chloride Lvl) 108 95-109 [facility] [id number] 16:12:00 Test Item Value Reference Range Interpretation Comments Sodium Lvl (test code = Sodium Lvl) 141 135-145 [facility] [id number] 16:12:00 Test Item Value Reference Range Interpretation Comments eGFR (test code = eGFR) 96 [facility] [id number] 16:12:00 Test Item Value Reference Range Interpretation Comments B/C Ratio (test code = B/C Ratio) 7 1 6-25 [facility] [id number] 16:12:00 Test Item Value Reference Range Interpretation Comments AST (test code = AST) 15 See_Comment [Auto mated message] The system which ge nerated this result transmit garrett reference range : <=37. The reference range was not used to interpr et this result as cassie l/abnormal. [facility] [place] [id number] 16:12:00 Test Item Value Reference Range Interpretation Comments Creatinine Lvl (test code = Creatinine 0.83 0.50-1.40 Lvl) [facility]2018-12-27 16:12:00 Test Item Value Reference Range Interpretation Comments ALT (test code = ALT) 20 See_Comment [Auto mated message] The system which ge nerated this result transmit garrett reference range : <=65. The reference range was not used to interpr et this result as cassie l/abnormal. [facility]2018-12-27 16:12:00 Test Item Value Reference Range Interpretation Comments AGAP (test code = AGAP) 13.8 10.0-20.0 [facility]2018-12-27 16:12:00 Test Item Value Reference Range Interpretation Comments Albumin Lvl (test code = Albumin Lvl) 2.5 3.5-5.0 [facility]2018-12-27 16:12:00 Test Item Value Reference Range Interpretation Comments Glucose Lvl (test code = Glucose Lvl) 153 70-99 [facility]2018-12-27 16:12:00 Test Item Value Reference Range Interpretation Comments BUN (test code = BUN) 6 7-22 [facility]2018-12-27 16:12:00 Test Item Value Reference Range Interpretation Comments CO2 (test code = CO2) 23 24-32 [facility]2018-12-27 16:12:00 Test Item Value Reference Range Interpretation Comments Calcium Lvl (test code = Calcium Lvl) 8.8 8.5-10.5 [facility]2018-12-27 16:12:00 Test Item Value Reference Range Interpretation Comments Bili Total (test code = Bili Total) 0.2 0.2-1.3 [facility]2018-12-27 16:12:00 Test Item Value Reference Range Interpretation Comments Total Protein (test code = Total 7.5 6.4-8.4 Protein) [facility]2018-12-27 16:12:00 Test Item Value Reference Range Interpretation Comments Globulin (test code = Globulin) 5.0 2.7-4.2 [facility]2018-12-27 16:12:00 Test Item Value Reference Range Interpretation Comments A/G Ratio (test code = A/G Ratio) 0.5 1 0.7-1.6 [facility] CenterQuuCHEM [id number] 16:12:00 Test Item Value Reference Range Interpretation Comments Phosphorus (test code = Phosphorus) 2.9 2.5-4.5 [facility] CenterannCARD[facility]AC [id number] 04:37:00 Test Item Value Reference Range Interpretation Comments Troponin-I (test code no gt See_Comment [Auto mated message] The = Troponin-I) system which g enerated this result transmit garrett reference range : <=0.40. The reference r ondina was not used to interpr et this result as cassie l/abnormal. [facility] CenterLingohubAC [id number] 04:37:00 Test Item Value Reference Range Interpretation Comments proBNP (test code = 2678 See_Comment [Automa garrett message] The proBNP) system which ge nerated this result tra nsmitted reference range : <=125. The reference r ondina was not used to int erpret this result as cassie l/abnormal. [facility] [id number] 04:37:00 Test Item Value Reference Range Interpretation Comments CO2 (test code = CO2) 25 24-32 [facility] [id number] 04:37:00 Test Item Value Reference Range Interpretation Comments Calcium Lvl (test code = Calcium Lvl) 8.1 8.5-10.5 [facility] [id number] 04:37:00 Test Item Value Reference Range Interpretation Comments Potassium Lvl (test code = Potassium 3.6 3.5-5.1 Lvl) [facility] Ce[id number] 04:37:00 Test Item Value Reference Range Interpretation Comments Chloride Lvl (test code = Chloride Lvl) 108 95-109 [facility] Center[id number] 04:37:00 Test Item Value Reference Range Interpretation Comments Sodium Lvl (test code = Sodium Lvl) 142 135-145 [facility] Cen[id number] 04:37:00 Test Item Value Reference Range Interpretation Comments Creatinine Lvl (test code = Creatinine 0.80 0.50-1.40 Lvl) [facility] CenterBrlachkRRKODQAMLTJE4052-91-28 04:37:00 Test Item Value Reference Range Interpretation Comments BUN (test code = BUN) 8 7-22 [facility]a[id number] 04:37:00 Test Item Value Reference Range Interpretation Comments Glucose Lvl (test code = Glucose Lvl) 88 70-99 [facility]aDbztfpzIUMAGLEJONYS0001-86-13 04:37:00 Test Item Value Reference Range Interpretation Comments eGFR (test code = eGFR) 97 [facility]penaRgfzspvFCLQSGFXWOOL5236-09-38 04:37:00 Test Item Value Reference Range Interpretation Comments AGAP (test code = AGAP) 12.6 10.0-20.0 [facility] CenterXrpztctZXXXRWNXNA4957-48-42 04:37:00 Test Item Value Reference Range Interpretation Comments WBC (test code = WBC) 7.8 3.7-10.4 [facility] CenterKinbrbgOIWSHDYSLZ1683-55-53 04:37:00 Test Item Value Reference Range Interpretation Comments RBC (test code = RBC) 3.53 4.70-6.10 [facility] CenterYhsuwfzXRDGXFMEJT5094-89-43 04:37:00 Test Item Value Reference Range Interpretation Comments Hgb (test code = Hgb) 9.0 14.0-18.0 [facility] CenterWaawxbzGNSCSUIUAV9982-66-44 04:37:00 Test Item Value Reference Range Interpretation Comments MCH (test code = MCH) 25.4 pg 27.0-31.0 [facility] CenterJohcyznMQSLOKXEIK5840-24-87 04:37:00 Test Item Value Reference Range Interpretation Comments Hct (test code = Hct) 27.5 42.0-54.0 [facility] CenterTsvnataYJKFMHTIJL0483-71-05 04:37:00 Test Item Value Reference Range Interpretation Comments MCV (test code = MCV) 78.1 80.0-94.0 [facility] CenterVcyguytQYTNLTPRQN3690-18-38 04:37:00 Test Item Value Reference Range Interpretation Comments Platelet (test code = Platelet) 400 133-450 [facility] CenterWxvuymwQVMBWQCXAU1324-71-81 04:37:00 Test Item Value Reference Range Interpretation Comments MCHC (test code = MCHC) 32.5 32.0-36.0 [facility] CenterDusniusTBLMRUVCRU0229-59-69 04:37:00 Test Item Value Reference Range Interpretation Comments MPV (test code = MPV) 8.2 7.4-10.4 [facility] CenterVofxoomGWWMFDXVHR7090-00-31 04:37:00 Test Item Value Reference Range Interpretation Comments RDW (test code = RDW) 17.8 11.5-14.5 [facility] CenterDeupxsxLWUCYEYRSI7500-20-82 04:37:00 Test Item Value Reference Range Interpretation Comments Microcyte (test code = 1+ *ABN*(02/27/18 Microcyte) 10:37 PM) [facility] CenterWfgpvtpORWCAAUGUD6576-78-03 04:37:00 Test Item Value Reference Range Interpretation Comments Eosinophils (test code = 4.0 See_Comment [A utomated message] The Eosinophils) system which ge nerated this result tra nsmitted reference range : <=4.0. The reference r ondina was not used to int erpret this result as normal/abnormal . [facility] CenterPpwizriMUDRDYJCAP2184-53-10 04:37:00 Test Item Value Reference Range Interpretation Comments Neutrophils # (test code = Neutrophils 4.8 1.5-8.1 #) [facility] CenterUrkgnmiDYRNEAWVFX2765-57-90 04:37:00 Test Item Value Reference Range Interpretation Comments Basophils (test code = 1.2 See_Comment [Aut omated message] The Basophils) system which ge nerated this result tra nsmitted reference range : <=1.0. The reference r ondina was not used to int erpret this result as normal/abnormal . [facility] CenterPffnnewGRHGAXPLWE0495-00-00 04:37:00 Test Item Value Reference Range Interpretation Comments Lymphocytes # (test code = Lymphocytes 1.8 1.0-5.5 #) [facility] CenterAbcnumoQKHRUJAKZB6479-99-08 04:37:00 Test Item Value Reference Range Interpretation Comments Monocytes # (test code 0.7 See_Comment [Aut omated message] The = Monocytes #) system which generated this result tra nsmitted reference range : <=0.8. The reference r ondina was not used to int erpret this result as normal/abnormal . [facility] CenterQgqbcfxNUCQWYXISJ7817-80-30 04:37:00 Test Item Value Reference Range Interpretation Comments Basophils # (test code 0.1 See_Comment [Aut omated message] The = Basophils #) system which generated this result tra nsmitted reference range : <=0.2. The reference r ondina was not used to int erpret this result as normal/abnormal . [facility] CenterAcahouhACUEHDQPNN4251-75-00 04:37:00 Test Item Value Reference Range Interpretation Comments Eosinophils # (test code 0.3 See_Comment [A utomated message] The = Eosinophils #) system whic h generated this result tra nsmitted reference range : <=0.5. The reference r ondina was not used to int erpret this result as normal/abnormal . [facility] CenterQkmhsvtCSZNLADNKD8457-28-63 04:37:00 Test Item Value Reference Range Interpretation Comments Lymphocytes (test code = Lymphocytes) 23.7 20.0-40.0 [facility] CenterDmpoawqBGFVVURVSC6009-32-84 04:37:00 Test Item Value Reference Range Interpretation Comments Monocytes (test code = Monocytes) 8.8 2.0-12.0 [facility] CenterMmuoymuIYEKNHBHJI6416-56-32 04:37:00 Test Item Value Reference Range Interpretation Comments Segs (test code = Segs) 62.3 45.0-75.0 [facility] AND [id number] 04:37:00 Test Item Value Reference Range Interpretation Comments UA Gran Cast (test code = UA Gran 6-10 /LPF Cast) [facility] AND [id number] 04:37:00 Test Item Value Reference Range Interpretation Comments UA Color (test code = Yellow *NA*(02/27/18 UA Color) 10:37 PM) [facility] AND [id number] 04:37:00 Test Item Value Reference Range Interpretation Comments UA Turbidity (test code Moderate = UA Turbidity) *ABN*(02/27/18 10:37 PM) [facility] AND [id number] 04:37:00 Test Item Value Reference Range Interpretation Comments UA Amorph Atiya (test code = Occasional /HPF UA Amorph Atiya) [facility] AND [id number] 04:37:00 Test Item Value Reference Range Interpretation Comments UA Bacteria (test code = UA Occasional /HPF Bacteria) [facility] AND [id number] 04:37:00 Test Item Value Reference Range Interpretation Comments UA Mucus (test code = UA Mucus) Few /LPF [facility] AND [id number] 04:37:00 Test Item Value Reference Range Interpretation Comments UA RBC (test code = 1 See_Comment [Automa garrett message] The UA RBC) system which ge nerated this result transmit garrett reference range : <=2. The reference range was not used to interpr et this result as cassie l/abnormal. [facility] AND [id number] 04:37:00 Test Item Value Reference Range Interpretation Comments UA Leuk Est (test Negative (02/27/18 10:37 code = UA Leuk Est) PM) [facility] AND [id number] 04:37:00 Test Item Value Reference Range Interpretation Comments UA Nitrite (test code Negative (02/27/18 = UA Nitrite) 10:37 PM) [facility] AND [id number] 04:37:00 Test Item Value Reference Range Interpretation Comments UA WBC (test code = 1 See_Comment [Automa garrett message] The UA WBC) system which ge nerated this result transmit garrett reference range : <=5. The reference range was not used to interpr et this result as cassie l/abnormal. [facility] AND [id number] 04:37:00 Test Item Value Reference Range Interpretation Comments UA Sq Epi (test code = UA Sq Occasional /LPF Epi) [facility] AND [id number] 04:37:00 Test Item Value Reference Range Interpretation Comments UA Protein (test code Negative (02/27/18 = UA Protein) 10:37 PM) [facility] AND [id number] 04:37:00 Test Item Value Reference Range Interpretation Comments UA Spec Grav (test code = UA Spec 1.009 1 Grav) [facility] AND [id number] 04:37:00 Test Item Value Reference Range Interpretation Comments UA pH (test code = UA pH) 6.0 1 5.0-8.0 [facility] AND [id number] 04:37:00 Test Item Value Reference Range Interpretation Comments UA Ketones (test code Negative *NA*(02/27/18 = UA Ketones) 10:37 PM) [facility] AND [id number] 04:37:00 Test Item Value Reference Range Interpretation Comments UA Urobilinogen (test code = UA <=1.0 mg/dL 0.1-1.0 Urobilinogen) [facility] AND [id number] 04:37:00 Test Item Value Reference Range Interpretation Comments UA Blood (test code = Negative (02/27/18 10:37 UA Blood) PM) [facility]URINE AND [id number] 04:37:00 Test Item Value Reference Range Interpretation Comments UA Glucose (test code Negative *NA*(02/27/18 = UA Glucose) 10:37 PM) [facility]ero[facility]URINE AND [id number] 04:37:00 Test Item Value Reference Range Interpretation Comments UA Bili (test code = Negative *NA*(02/27/18 UA Bili) 10:37 PM) [facility] [id number] 04:37:00 Test Item Value Reference Range Interpretation Comments Influ A (test code = Negative (02/27/18 10:37 Influ A) PM) [facility] [id number] 04:37:00 Test Item Value Reference Range Interpretation Comments Influ B (test code = Negative (02/27/18 10:37 Influ B) PM) [facility] CenterannCARDIAC [id number] 04:37:00 Test Item Value Reference Range Interpretation Comments Troponin-I (test code no gt See_Comment [Auto mated message] The = Troponin-I) system which g enerated this result transmit garrett reference range : <=0.40. The reference r ondina was not used to interpr et this result as cassie l/abnormal. [facility] CenterannCARDIAC [id number] 04:37:00 Test Item Value Reference Range Interpretation Comments proBNP (test code = 2678 See_Comment [Automa garrett message] The proBNP) system which ge nerated this result tra nsmitted reference range : <=125. The reference r ondina was not used to int erpret this result as cassie l/abnormal. [facility] EbzivrpKIXJLSTTNBWX6131-53-52 04:37:00 Test Item Value Reference Range Interpretation Comments CO2 (test code = CO2) 25 24-32 [facility]XsemmusNQVFHSWKIFWS4734-48-40 04:37:00 Test Item Value Reference Range Interpretation Comments Calcium Lvl (test code = Calcium Lvl) 8.1 8.5-10.5 [facility] CenterYavuoxsIAZPAUTOJAAA3813-94-62 04:37:00 Test Item Value Reference Range Interpretation Comments Potassium Lvl (test code = Potassium 3.6 3.5-5.1 Lvl) [facility] CenterSdxtilcFEZRSBZVHOUQ8201-48-18 04:37:00 Test Item Value Reference Range Interpretation Comments Chloride Lvl (test code = Chloride Lvl) 108 95-109 [facility]aEvchnxjCSPFNOYIUOOO3879-33-20 04:37:00 Test Item Value Reference Range Interpretation Comments Sodium Lvl (test code = Sodium Lvl) 142 135-145 [facility]aHafkdxgTRLZAPHHNVZC0125-71-89 04:37:00 Test Item Value Reference Range Interpretation Comments Creatinine Lvl (test code = Creatinine 0.80 0.50-1.40 Lvl) [facility]penaGpxicutPAJLPXRWNLFW0179-77-32 04:37:00 Test Item Value Reference Range Interpretation Comments BUN (test code = BUN) 8 7-22 [facility]penaKygguflTLSWLBCLEEIA1802-70-02 04:37:00 Test Item Value Reference Range Interpretation Comments Glucose Lvl (test code = Glucose Lvl) 88 70-99 [facility]aMzwddumICIAOJKATQPH1138-46-03 04:37:00 Test Item Value Reference Range Interpretation Comments eGFR (test code = eGFR) 97 [facility]penaJhrtpabWBERPOZQNXBT7435-95-42 04:37:00 Test Item Value Reference Range Interpretation Comments AGAP (test code = AGAP) 12.6 10.0-20.0 [facility] CenterEotsysnEVRDEDQQXH3130-85-36 04:37:00 Test Item Value Reference Range Interpretation Comments WBC (test code = WBC) 7.8 3.7-10.4 [facility] CenterUqoogzzIGLRFILMDA3775-85-66 04:37:00 Test Item Value Reference Range Interpretation Comments RBC (test code = RBC) 3.53 4.70-6.10 [facility] CenterKwyblvnPMAABETSKE1087-41-36 04:37:00 Test Item Value Reference Range Interpretation Comments Hgb (test code = Hgb) 9.0 14.0-18.0 [facility] CenterAnkjojxFEFBQJVRWO1272-19-47 04:37:00 Test Item Value Reference Range Interpretation Comments MCH (test code = MCH) 25.4 pg 27.0-31.0 [facility] CenterAmxqqssXRVELQZDDK3359-17-08 04:37:00 Test Item Value Reference Range Interpretation Comments Hct (test code = Hct) 27.5 42.0-54.0 [facility] CenterYllbrwmXJPPQFDBEY2961-60-38 04:37:00 Test Item Value Reference Range Interpretation Comments MCV (test code = MCV) 78.1 80.0-94.0 [facility] CenterHggwrihCWNPRNHUCA3269-58-13 04:37:00 Test Item Value Reference Range Interpretation Comments Platelet (test code = Platelet) 400 133-450 [facility] CenterDwiijzjDGNVCSKKKS1407-97-73 04:37:00 Test Item Value Reference Range Interpretation Comments MCHC (test code = MCHC) 32.5 32.0-36.0 [facility] CenterKagufhyGQLHPEJRQM2613-60-18 04:37:00 Test Item Value Reference Range Interpretation Comments MPV (test code = MPV) 8.2 7.4-10.4 [facility] CenterDfqrftbXRPSIPUVWD5545-10-87 04:37:00 Test Item Value Reference Range Interpretation Comments RDW (test code = RDW) 17.8 11.5-14.5 [facility] CenterMvwbwbkTQFIRVRNCD9741-25-39 04:37:00 Test Item Value Reference Range Interpretation Comments Microcyte (test code = 1+ *ABN*(02/27/18 Microcyte) 10:37 PM) [place] 539438-12-27 04:37:00 Test Item Value Reference Range Interpretation Comments Eosinophils (test code = 4.0 See_Comment [A utomated message] The Eosinophils) system which ge nerated this result tra nsmitted reference range : <=4.0. The reference r ondina was not used to int erpret this result as normal/abnormal . [facility] CenterLduoyhnUMMLGALHIB3884-64-49 04:37:00 Test Item Value Reference Range Interpretation Comments Neutrophils # (test code = Neutrophils 4.8 1.5-8.1 #) [facility] CenterBvtamheYUSELWKWEB3615-06-00 04:37:00 Test Item Value Reference Range Interpretation Comments Basophils (test code = 1.2 See_Comment [Aut omated message] The Basophils) system which ge nerated this result tra nsmitted reference range : <=1.0. The reference r ondina was not used to int erpret this result as normal/abnormal . [facility] CenterExwjphaKELQQYBQZB2088-20-93 04:37:00 Test Item Value Reference Range Interpretation Comments Lymphocytes # (test code = Lymphocytes 1.8 1.0-5.5 #) [facility] CenterYerlsxiVDDCLOEQTA1629-94-46 04:37:00 Test Item Value Reference Range Interpretation Comments Monocytes # (test code 0.7 See_Comment [Aut omated message] The = Monocytes #) system which generated this result tra nsmitted reference range : <=0.8. The reference r ondina was not used to int erpret this result as normal/abnormal . [facility] CenterFemxdvlZHAELCDQXH1975-34-74 04:37:00 Test Item Value Reference Range Interpretation Comments Basophils # (test code 0.1 See_Comment [Aut omated message] The = Basophils #) system which generated this result tra nsmitted reference range : <=0.2. The reference r ondina was not used to int erpret this result as normal/abnormal . [facility] CenterBdmcwztDRPVNGLRVN4541-25-19 04:37:00 Test Item Value Reference Range Interpretation Comments Eosinophils # (test code 0.3 See_Comment [A utomated message] The = Eosinophils #) system whic h generated this result tra nsmitted reference range : <=0.5. The reference r ondina was not used to int erpret this result as normal/abnormal . [facility] CenterGarjebxWIBBEQCCYK9957-03-74 04:37:00 Test Item Value Reference Range Interpretation Comments Lymphocytes (test code = Lymphocytes) 23.7 20.0-40.0 [facility] CenterJkchevzQFUPSEBQSI7713-13-90 04:37:00 Test Item Value Reference Range Interpretation Comments Monocytes (test code = Monocytes) 8.8 2.0-12.0 [facility] CenterWvvtqvzEAEALACRBL1475-19-00 04:37:00 Test Item Value Reference Range Interpretation Comments Segs (test code = Segs) 62.3 45.0-75.0 [facility] AND [id number] 04:37:00 Test Item Value Reference Range Interpretation Comments UA Gran Cast (test code = UA Gran 6-10 /LPF Cast) [facility] AND [id number] 04:37:00 Test Item Value Reference Range Interpretation Comments UA Color (test code = Yellow *NA*(02/27/18 UA Color) 10:37 PM) [facility] AND [id number] 04:37:00 Test Item Value Reference Range Interpretation Comments UA Turbidity (test code Moderate = UA Turbidity) *ABN*(02/27/18 10:37 PM) [facility] AND [id number] 04:37:00 Test Item Value Reference Range Interpretation Comments UA Amorph Atiya (test code = Occasional /HPF UA Amorph Atiya) [facility] AND [id number] 04:37:00 Test Item Value Reference Range Interpretation Comments UA Bacteria (test code = UA Occasional /HPF Bacteria) [facility] AND [id number] 04:37:00 Test Item Value Reference Range Interpretation Comments UA Mucus (test code = UA Mucus) Few /LPF [facility] AND [id number] 04:37:00 Test Item Value Reference Range Interpretation Comments UA RBC (test code = 1 See_Comment [Automa garrett message] The UA RBC) system which ge nerated this result transmit garrett reference range : <=2. The reference range was not used to interpr et this result as cassie l/abnormal. [facility] AND [id number] 04:37:00 Test Item Value Reference Range Interpretation Comments UA Leuk Est (test Negative (02/27/18 10:37 code = UA Leuk Est) PM) [facility] AND [id number] 04:37:00 Test Item Value Reference Range Interpretation Comments UA Nitrite (test code Negative (02/27/18 = UA Nitrite) 10:37 PM) [facility] AND [id number] 04:37:00 Test Item Value Reference Range Interpretation Comments UA WBC (test code = 1 See_Comment [Automa garrett message] The UA WBC) system which ge nerated this result transmit garrett reference range : <=5. The reference range was not used to interpr et this result as cassie l/abnormal. [facility] AND [id number] 04:37:00 Test Item Value Reference Range Interpretation Comments UA Sq Epi (test code = UA Sq Occasional /LPF Epi) [facility] AND [id number] 04:37:00 Test Item Value Reference Range Interpretation Comments UA Protein (test code Negative (02/27/18 = UA Protein) 10:37 PM) [facility] AND [id number] 04:37:00 Test Item Value Reference Range Interpretation Comments UA Spec Grav (test code = UA Spec 1.009 1 Grav) [facility] AND [id number] 04:37:00 Test Item Value Reference Range Interpretation Comments UA pH (test code = UA pH) 6.0 1 5.0-8.0 [facility] AND [id number] 04:37:00 Test Item Value Reference Range Interpretation Comments UA Ketones (test code Negative *NA*(02/27/18 = UA Ketones) 10:37 PM) [facility] [id number] 04:37:00 Test Item Value Reference Range Interpretation Comments UA Urobilinogen (test code = UA <=1.0 mg/dL 0.1-1.0 Urobilinogen) [facility] AND [id number] 04:37:00 Test Item Value Reference Range Interpretation Comments UA Blood (test code = Negative (02/27/18 10:37 UA Blood) PM) [facility] AND [id number] 04:37:00 Test Item Value Reference Range Interpretation Comments UA Glucose (test code Negative *NA*(02/27/18 = UA Glucose) 10:37 PM) [facility] AND [id number] 04:37:00 Test Item Value Reference Range Interpretation Comments UA Bili (test code = Negative *NA*(02/27/18 UA Bili) 10:37 PM) [facility] - [id number] 04:37:00 Test Item Value Reference Range Interpretation Comments Influ A (test code = Negative (02/27/18 10:37 Influ A) PM) [facility]annV[facility] - [id number] 04:37:00 Test Item Value Reference Range Interpretation Comments Influ B (test code = Negative (02/27/18 10:37 Influ B) PM) [facility] CenterannCARDIAC UHGVKRI9614-70-36 04:37:00 Test Item Value Reference Range Interpretation Comments Troponin-I (test code no gt See_Comment [Auto mated message] The = Troponin-I) system which g enerated this result transmit garrett reference range : <=0.40. The reference r ondina was not used to interpr et this result as cassie l/abnormal. [facility] CenterannCARDIAC [id number] 04:37:00 Test Item Value Reference Range Interpretation Comments proBNP (test code = 2678 See_Comment [Automa garrett message] The proBNP) system which ge nerated this result tra nsmitted reference range : <=125. The reference r ondina was not used to int erpret this result as cassie l/abnormal. [facility]aIppfoznJLEGWPEOFYIU7484-60-76 04:37:00 Test Item Value Reference Range Interpretation Comments CO2 (test code = CO2) 25 24-32 [facility]aEtvjznhQWVICKKIIERK2614-61-83 04:37:00 Test Item Value Reference Range Interpretation Comments Calcium Lvl (test code = Calcium Lvl) 8.1 8.5-10.5 [facility]penaZvflvwzKGRUQBKXNQEP5060-64-29 04:37:00 Test Item Value Reference Range Interpretation Comments Potassium Lvl (test code = Potassium 3.6 3.5-5.1 Lvl) [facility]aAeliryyTWGJFXFMBIPA7039-34-57 04:37:00 Test Item Value Reference Range Interpretation Comments Chloride Lvl (test code = Chloride Lvl) 108 95-109 [facility] AlpenaFrudbakOIXWVNXNLYZD9507-71-32 04:37:00 Test Item Value Reference Range Interpretation Comments Sodium Lvl (test code = Sodium Lvl) 142 135-145 [facility]penaNjiacrmXNKQBASKKTGU4803-36-93 04:37:00 Test Item Value Reference Range Interpretation Comments Creatinine Lvl (test code = Creatinine 0.80 0.50-1.40 Lvl) [facility]penaVjcqkprFZUWYAXYOHGY5553-34-58 04:37:00 Test Item Value Reference Range Interpretation Comments BUN (test code = BUN) 8 7-22 [facility] AlpenaOtavhpyHQFAXDWJTMQJ4578-61-78 04:37:00 Test Item Value Reference Range Interpretation Comments Glucose Lvl (test code = Glucose Lvl) 88 70-99 [facility]penaArbqvbcKWEHSSSRDLRE2217-29-54 04:37:00 Test Item Value Reference Range Interpretation Comments eGFR (test code = eGFR) 97 [facility]penaEryccyoFKZJCFZFATJN2092-03-87 04:37:00 Test Item Value Reference Range Interpretation Comments AGAP (test code = AGAP) 12.6 10.0-20.0 [facility] CenterYxzeujmDKHSFVDWJC6189-70-10 04:37:00 Test Item Value Reference Range Interpretation Comments WBC (test code = WBC) 7.8 3.7-10.4 [facility] CenterVqpobddXTWPYTHKMC9854-69-59 04:37:00 Test Item Value Reference Range Interpretation Comments RBC (test code = RBC) 3.53 4.70-6.10 [facility] CenterGbebbbqJCXNWXCMLF9689-70-84 04:37:00 Test Item Value Reference Range Interpretation Comments Hgb (test code = Hgb) 9.0 14.0-18.0 [facility] CenterRwyclctTUSQTFXXDA0359-39-92 04:37:00 Test Item Value Reference Range Interpretation Comments MCH (test code = MCH) 25.4 pg 27.0-31.0 [facility] CenterIjuqzcsZOUZIKYHEA1459-70-47 04:37:00 Test Item Value Reference Range Interpretation Comments Hct (test code = Hct) 27.5 42.0-54.0 [facility] CenterUvippuwQIHZVZZOXI2435-45-73 04:37:00 Test Item Value Reference Range Interpretation Comments MCV (test code = MCV) 78.1 80.0-94.0 [facility] CenterDfhumjiQXHHDCXQYK1652-88-87 04:37:00 Test Item Value Reference Range Interpretation Comments Platelet (test code = Platelet) 400 133-450 [facility] CenterNijplldXGTPEGDVUA0799-78-16 04:37:00 Test Item Value Reference Range Interpretation Comments MCHC (test code = MCHC) 32.5 32.0-36.0 [facility] CenterQjbjjxgJKCREHLVTE0969-47-50 04:37:00 Test Item Value Reference Range Interpretation Comments MPV (test code = MPV) 8.2 7.4-10.4 [facility] CenterSzuvmxgZSJNJJKZFK3262-36-42 04:37:00 Test Item Value Reference Range Interpretation Comments RDW (test code = RDW) 17.8 11.5-14.5 [facility] CenterOicqotkWKNCKWSKPL8640-19-16 04:37:00 Test Item Value Reference Range Interpretation Comments Microcyte (test code = 1+ *ABN*(02/27/18 Microcyte) 10:37 PM) [facility] CenterBrurodgQVCVOVIMGZ8197-20-08 04:37:00 Test Item Value Reference Range Interpretation Comments Eosinophils (test code = 4.0 See_Comment [A utomated message] The Eosinophils) system which ge nerated this result tra nsmitted reference range : <=4.0. The reference r ondina was not used to int erpret this result as normal/abnormal . [facility] CenterWbgakgnALFXTMBVPI9503-24-01 04:37:00 Test Item Value Reference Range Interpretation Comments Neutrophils # (test code = Neutrophils 4.8 1.5-8.1 #) [facility] CenterQholjbyETQZJSTMFQ7469-50-26 04:37:00 Test Item Value Reference Range Interpretation Comments Basophils (test code = 1.2 See_Comment [Aut omated message] The Basophils) system which ge nerated this result tra nsmitted reference range : <=1.0. The reference r ondina was not used to int erpret this result as normal/abnormal . [facility] CenterWyobfnjBNKOVPQHGW4612-49-06 04:37:00 Test Item Value Reference Range Interpretation Comments Lymphocytes # (test code = Lymphocytes 1.8 1.0-5.5 #) [facility] CenterFfbcohuRNNSWBPLPT4729-87-23 04:37:00 Test Item Value Reference Range Interpretation Comments Monocytes # (test code 0.7 See_Comment [Aut omated message] The = Monocytes #) system which generated this result tra nsmitted reference range : <=0.8. The reference r ondina was not used to int erpret this result as normal/abnormal . [facility] CenterKvkmqoqCEDLBOEVKM0066-54-53 04:37:00 Test Item Value Reference Range Interpretation Comments Basophils # (test code 0.1 See_Comment [Aut omated message] The = Basophils #) system which generated this result tra nsmitted reference range : <=0.2. The reference r ondina was not used to int erpret this result as normal/abnormal . [facility] CenterZownxfcCXLCRMWDTI3700-41-78 04:37:00 Test Item Value Reference Range Interpretation Comments Eosinophils # (test code 0.3 See_Comment [A utomated message] The = Eosinophils #) system whic h generated this result tra nsmitted reference range : <=0.5. The reference r ondina was not used to int erpret this result as normal/abnormal . [facility] CenterAfarggxHDRRJRAIRZ1819-63-23 04:37:00 Test Item Value Reference Range Interpretation Comments Lymphocytes (test code = Lymphocytes) 23.7 20.0-40.0 [facility] CenterTufehfmSBWEWDSVUZ1714-44-43 04:37:00 Test Item Value Reference Range Interpretation Comments Monocytes (test code = Monocytes) 8.8 2.0-12.0 [facility] CenterAtfvvrkGWXEZNZXIJ1137-96-04 04:37:00 Test Item Value Reference Range Interpretation Comments Segs (test code = Segs) 62.3 45.0-75.0 [facility] AND [id number] 04:37:00 Test Item Value Reference Range Interpretation Comments UA Gran Cast (test code = UA Gran 6-10 /LPF Cast) [facility] AND [id number] 04:37:00 Test Item Value Reference Range Interpretation Comments UA Color (test code = Yellow *NA*(02/27/18 UA Color) 10:37 PM) [facility] AND [id number] 04:37:00 Test Item Value Reference Range Interpretation Comments UA Turbidity (test code Moderate = UA Turbidity) *ABN*(02/27/18 10:37 PM) [facility] AND [id number] 04:37:00 Test Item Value Reference Range Interpretation Comments UA Amorph Atiya (test code = Occasional /HPF UA Amorph Atiya) [facility] AND [id number] 04:37:00 Test Item Value Reference Range Interpretation Comments UA Bacteria (test code = UA Occasional /HPF Bacteria) [facility] AND [id number] 04:37:00 Test Item Value Reference Range Interpretation Comments UA Mucus (test code = UA Mucus) Few /LPF [facility] AND [id number] 04:37:00 Test Item Value Reference Range Interpretation Comments UA RBC (test code = 1 See_Comment [Automa garrett message] The UA RBC) system which ge nerated this result transmit garrett reference range : <=2. The reference range was not used to interpr et this result as cassie l/abnormal. [facility] AND [id number] 04:37:00 Test Item Value Reference Range Interpretation Comments UA Leuk Est (test Negative (02/27/18 10:37 code = UA Leuk Est) PM) [facility] AND [id number] 04:37:00 Test Item Value Reference Range Interpretation Comments UA Nitrite (test code Negative (02/27/18 = UA Nitrite) 10:37 PM) [facility] AND [id number] 04:37:00 Test Item Value Reference Range Interpretation Comments UA WBC (test code = 1 See_Comment [Automa garrett message] The UA WBC) system which ge nerated this result transmit garrett reference range : <=5. The reference range was not used to interpr et this result as cassie l/abnormal. [facility] AND [id number] 04:37:00 Test Item Value Reference Range Interpretation Comments UA Sq Epi (test code = UA Sq Occasional /LPF Epi) [facility] AND [id number] 04:37:00 Test Item Value Reference Range Interpretation Comments UA Protein (test code Negative (02/27/18 = UA Protein) 10:37 PM) [facility] [id number] 04:37:00 Test Item Value Reference Range Interpretation Comments UA Spec Grav (test code = UA Spec 1.009 1 Grav) [facility] [id number] 04:37:00 Test Item Value Reference Range Interpretation Comments UA pH (test code = UA pH) 6.0 1 5.0-8.0 [facility] [id number] 04:37:00 Test Item Value Reference Range Interpretation Comments UA Ketones (test code Negative *NA*(02/27/18 = UA Ketones) 10:37 PM) [facility] [id number] 04:37:00 Test Item Value Reference Range Interpretation Comments UA Urobilinogen (test code = UA <=1.0 mg/dL 0.1-1.0 Urobilinogen) [facility] [id number] 04:37:00 Test Item Value Reference Range Interpretation Comments UA Blood (test code = Negative (02/27/18 10:37 UA Blood) PM) [facility] [id number] 04:37:00 Test Item Value Reference Range Interpretation Comments UA Glucose (test code Negative *NA*(02/27/18 = UA Glucose) 10:37 PM) [facility] [id number] 04:37:00 Test Item Value Reference Range Interpretation Comments UA Bili (test code = Negative *NA*(02/27/18 UA Bili) 10:37 PM) [facility] - [id number] 04:37:00 Test Item Value Reference Range Interpretation Comments Influ A (test code = Negative (02/27/18 10:37 Influ A) PM) [facility] - [id number] 04:37:00 Test Item Value Reference Range Interpretation Comments Influ B (test code = Negative (02/27/18 10:37 Influ B) PM) [facility]CARDI[facility] [id number] 04:37:00 Test Item Value Reference Range Interpretation Comments Troponin-I (test code no gt See_Comment [Auto mated message] The = Troponin-I) system which g enerated this result transmit garrett reference range : <=0.40. The reference r ondina was not used to interpr et this result as cassie l/abnormal. [facility]annCARD[facility]AC [id number] 04:37:00 Test Item Value Reference Range Interpretation Comments proBNP (test code = 2678 See_Comment [Automa garrett message] The proBNP) system which ge nerated this result tra nsmitted reference range : <=125. The reference r ondina was not used to int erpret this result as cassie l/abnormal. [facility] RuwauheJEMCCBIUQLAS0600-46-93 04:37:00 Test Item Value Reference Range Interpretation Comments CO2 (test code = CO2) 25 24-32 [facility] CenterJisjkowVDMKWUNLPYYL9933-56-17 04:37:00 Test Item Value Reference Range Interpretation Comments Calcium Lvl (test code = Calcium Lvl) 8.1 8.5-10.5 [facility] CenterAuskxftIFKSJOHIGHNH3444-28-62 04:37:00 Test Item Value Reference Range Interpretation Comments Potassium Lvl (test code = Potassium 3.6 3.5-5.1 Lvl) [facility] CenterRtcvkadWTFHMYVMQOFC5004-72-05 04:37:00 Test Item Value Reference Range Interpretation Comments Chloride Lvl (test code = Chloride Lvl) 108 95-109 [facility] CenterQctkkvwZQTXGOEHZXHQ0597-14-27 04:37:00 Test Item Value Reference Range Interpretation Comments Sodium Lvl (test code = Sodium Lvl) 142 135-145 [facility] CenterHdosdgmTIQBQCHUEYWE6764-39-21 04:37:00 Test Item Value Reference Range Interpretation Comments Creatinine Lvl (test code = Creatinine 0.80 0.50-1.40 Lvl) [facility] CenterKnofuouJETLDLWBDYDB9990-17-84 04:37:00 Test Item Value Reference Range Interpretation Comments BUN (test code = BUN) 8 7-22 [facility] CenterIxhfhkxNIOAUOTAJDBF7607-55-05 04:37:00 Test Item Value Reference Range Interpretation Comments Glucose Lvl (test code = Glucose Lvl) 88 70-99 [facility] CenterUdtuctwNFANTBQLXYRT1646-91-81 04:37:00 Test Item Value Reference Range Interpretation Comments eGFR (test code = eGFR) 97 [facility] CenterGtvwvogYXYUMRRZMFCZ1836-54-99 04:37:00 Test Item Value Reference Range Interpretation Comments AGAP (test code = AGAP) 12.6 10.0-20.0 [facility] CenterIetkzhlNFDNZRZBSQ1270-40-17 04:37:00 Test Item Value Reference Range Interpretation Comments WBC (test code = WBC) 7.8 3.7-10.4 [facility] CenterGcppsuvRQJTBCLLLT9741-32-28 04:37:00 Test Item Value Reference Range Interpretation Comments RBC (test code = RBC) 3.53 4.70-6.10 [facility] CenterTjzngihQONCNTXHOG2432-93-22 04:37:00 Test Item Value Reference Range Interpretation Comments Hgb (test code = Hgb) 9.0 14.0-18.0 [facility]RvoebfuZETOJYBSNP0203-36-68 04:37:00 Test Item Value Reference Range Interpretation Comments MCH (test code = MCH) 25.4 pg 27.0-31.0 [facility] CenterWdtvxqwQUPABDSFGU8232-56-41 04:37:00 Test Item Value Reference Range Interpretation Comments Hct (test code = Hct) 27.5 42.0-54.0 [facility] CenterQifeghnXVSKBXNSRU2124-89-95 04:37:00 Test Item Value Reference Range Interpretation Comments MCV (test code = MCV) 78.1 80.0-94.0 [facility] CenterZtrzzksCYUCTBHFZU7452-39-04 04:37:00 Test Item Value Reference Range Interpretation Comments Platelet (test code = Platelet) 400 133-450 [facility] CenterMatuknwJWTDFYUORB3786-84-76 04:37:00 Test Item Value Reference Range Interpretation Comments MCHC (test code = MCHC) 32.5 32.0-36.0 [facility] CenterVzrodbtEFKCEHLZCP0348-63-13 04:37:00 Test Item Value Reference Range Interpretation Comments MPV (test code = MPV) 8.2 7.4-10.4 [facility] CenterTzrzrmeQUNHHLWRCC3539-35-63 04:37:00 Test Item Value Reference Range Interpretation Comments RDW (test code = RDW) 17.8 11.5-14.5 [facility] CenterUdxgcebDDLZZKELWK0555-57-35 04:37:00 Test Item Value Reference Range Interpretation Comments Microcyte (test code = 1+ *ABN*(02/27/18 Microcyte) 10:37 PM) [facility] CenterFdraeloDMOSQABADE1684-86-09 04:37:00 Test Item Value Reference Range Interpretation Comments Eosinophils (test code = 4.0 See_Comment [A utomated message] The Eosinophils) system which ge nerated this result tra nsmitted reference range : <=4.0. The reference r ondina was not used to int erpret this result as normal/abnormal . [facility] CenterMewzazqCLOUHGTIBC4674-56-24 04:37:00 Test Item Value Reference Range Interpretation Comments Neutrophils # (test code = Neutrophils 4.8 1.5-8.1 #) [facility] CenterBzsbzpiMLKZYZNNXQ3041-68-96 04:37:00 Test Item Value Reference Range Interpretation Comments Basophils (test code = 1.2 See_Comment [Aut omated message] The Basophils) system which ge nerated this result tra nsmitted reference range : <=1.0. The reference r ondina was not used to int erpret this result as normal/abnormal . [facility] CenterXllicfvOYOUQVTRCJ6738-88-66 04:37:00 Test Item Value Reference Range Interpretation Comments Lymphocytes # (test code = Lymphocytes 1.8 1.0-5.5 #) [facility] CenterJhjejncUITFPWIYRM8841-09-83 04:37:00 Test Item Value Reference Range Interpretation Comments Monocytes # (test code 0.7 See_Comment [Aut omated message] The = Monocytes #) system which generated this result tra nsmitted reference range : <=0.8. The reference r ondina was not used to int erpret this result as normal/abnormal . [facility] CenterIpjzpjgVOBGHOOFBB2699-88-03 04:37:00 Test Item Value Reference Range Interpretation Comments Basophils # (test code 0.1 See_Comment [Aut omated message] The = Basophils #) system which generated this result tra nsmitted reference range : <=0.2. The reference r ondina was not used to int erpret this result as normal/abnormal . [facility] CenterQarglxrOMTWECHDWP8249-54-64 04:37:00 Test Item Value Reference Range Interpretation Comments Eosinophils # (test code 0.3 See_Comment [A utomated message] The = Eosinophils #) system whic h generated this result tra nsmitted reference range : <=0.5. The reference r ondina was not used to int erpret this result as normal/abnormal . [facility] CenterGrjmyqmYUVSVBEDHU2297-48-51 04:37:00 Test Item Value Reference Range Interpretation Comments Lymphocytes (test code = Lymphocytes) 23.7 20.0-40.0 [facility] CenterBrrpzshDUPXYQFMKD3078-59-21 04:37:00 Test Item Value Reference Range Interpretation Comments Monocytes (test code = Monocytes) 8.8 2.0-12.0 [facility] CenterOybvlhwTSLXALREZL1737-20-91 04:37:00 Test Item Value Reference Range Interpretation Comments Segs (test code = Segs) 62.3 45.0-75.0 [facility] AND [id number] 04:37:00 Test Item Value Reference Range Interpretation Comments UA Gran Cast (test code = UA Gran 6-10 /LPF Cast) [facility] AND [id number] 04:37:00 Test Item Value Reference Range Interpretation Comments UA Color (test code = Yellow *NA*(02/27/18 UA Color) 10:37 PM) [facility] AND [id number] 04:37:00 Test Item Value Reference Range Interpretation Comments UA Turbidity (test code Moderate = UA Turbidity) *ABN*(02/27/18 10:37 PM) [facility] AND [id number] 04:37:00 Test Item Value Reference Range Interpretation Comments UA Amorph Atiya (test code = Occasional /HPF UA Amorph Atiya) [facility] AND [id number] 04:37:00 Test Item Value Reference Range Interpretation Comments UA Bacteria (test code = UA Occasional /HPF Bacteria) [facility] AND [id number] 04:37:00 Test Item Value Reference Range Interpretation Comments UA Mucus (test code = UA Mucus) Few /LPF [facility] AND [id number] 04:37:00 Test Item Value Reference Range Interpretation Comments UA RBC (test code = 1 See_Comment [Automa garrett message] The UA RBC) system which ge nerated this result transmit garrett reference range : <=2. The reference range was not used to interpr et this result as cassie l/abnormal. [facility] AND [id number] 04:37:00 Test Item Value Reference Range Interpretation Comments UA Leuk Est (test Negative (02/27/18 10:37 code = UA Leuk Est) PM) [facility] AND [id number] 04:37:00 Test Item Value Reference Range Interpretation Comments UA Nitrite (test code Negative (02/27/18 = UA Nitrite) 10:37 PM) [facility] AND [id number] 04:37:00 Test Item Value Reference Range Interpretation Comments UA WBC (test code = 1 See_Comment [Automa garrett message] The UA WBC) system which ge nerated this result transmit garrett reference range : <=5. The reference range was not used to interpr et this result as cassie l/abnormal. [facility] AND [id number] 04:37:00 Test Item Value Reference Range Interpretation Comments UA Sq Epi (test code = UA Sq Occasional /LPF Epi) [facility] AND [id number] 04:37:00 Test Item Value Reference Range Interpretation Comments UA Protein (test code Negative (02/27/18 = UA Protein) 10:37 PM) [facility] AND [id number] 04:37:00 Test Item Value Reference Range Interpretation Comments UA Spec Grav (test code = UA Spec 1.009 1 Grav) [facility] AND [id number] 04:37:00 Test Item Value Reference Range Interpretation Comments UA pH (test code = UA pH) 6.0 1 5.0-8.0 [facility] AND [id number] 04:37:00 Test Item Value Reference Range Interpretation Comments UA Ketones (test code Negative *NA*(02/27/18 = UA Ketones) 10:37 PM) [facility] AND [id number] 04:37:00 Test Item Value Reference Range Interpretation Comments UA Urobilinogen (test code = UA <=1.0 mg/dL 0.1-1.0 Urobilinogen) [facility] AND [id number] 04:37:00 Test Item Value Reference Range Interpretation Comments UA Blood (test code = Negative (02/27/18 10:37 UA Blood) PM) [facility] AND [id number] 04:37:00 Test Item Value Reference Range Interpretation Comments UA Glucose (test code Negative *NA*(02/27/18 = UA Glucose) 10:37 PM) [facility] AND [id number] 04:37:00 Test Item Value Reference Range Interpretation Comments UA Bili (test code = Negative *NA*(02/27/18 UA Bili) 10:37 PM) [facility]XEWV[facility]6775[facility] 04:37:00 Test Item Value Reference Range Interpretation Comments Influ A (test code = Negative (02/27/18 10:37 Influ A) PM) [facility] [id number] 04:37:00 Test Item Value Reference Range Interpretation Comments Influ B (test code = Negative (02/27/18 10:37 Influ B) PM) [facility]qavqxqLKZPXFQWCCXY6135-19-93 12:27:00 Test Item Value Reference Range Interpretation Comments AGAP (test code = AGAP) 12.7 10.0-20.0 [facility]aZpktvdrNZTPZIQMYIJX4604-63-34 12:27:00 Test Item Value Reference Range Interpretation Comments Glucose Lvl (test code = Glucose Lvl) 79 70-99 [facility]aYqlidejIJPRTYDNOCYO9859-09-30 12:27:00 Test Item Value Reference Range Interpretation Comments Potassium Lvl (test code = Potassium 3.7 3.5-5.1 Lvl) [facility]aPjlrlniQJLJOUABDPRA1741-86-65 12:27:00 Test Item Value Reference Range Interpretation Comments Sodium Lvl (test code = Sodium Lvl) 144 135-145 [facility]aQqpyvdyVVUAOEGPYPEY5409-44-24 12:27:00 Test Item Value Reference Range Interpretation Comments Chloride Lvl (test code = Chloride Lvl) 109 95-109 [facility]penaIwayiwdOQURHXWKDAYT5687-97-58 12:27:00 Test Item Value Reference Range Interpretation Comments eGFR (test code = eGFR) 104 [facility]aIwusgdaYFDQILXGWIHA0427-44-66 12:27:00 Test Item Value Reference Range Interpretation Comments Creatinine Lvl (test code = Creatinine 0.68 0.50-1.40 Lvl) [facility]aUllpwywYOYRCMRCSKZB8039-09-52 12:27:00 Test Item Value Reference Range Interpretation Comments Calcium Lvl (test code = Calcium Lvl) 8.2 8.5-10.5 [facility]aCgcybxzRUTCMMMELHNJ7470-16-03 12:27:00 Test Item Value Reference Range Interpretation Comments CO2 (test code = CO2) 26 24-32 [facility]aRnkgrrlCPXKQAQSCRAW6098-80-58 12:27:00 Test Item Value Reference Range Interpretation Comments BUN (test code = BUN) 9 7-22 [facility] CenterKgcpubgARDDLAEOGK0239-69-61 12:27:00 Test Item Value Reference Range Interpretation Comments MPV (test code = MPV) 8.2 7.4-10.4 [facility] CenterDyrephaLVEGOOYASI1985-17-05 12:27:00 Test Item Value Reference Range Interpretation Comments RDW (test code = RDW) 17.6 11.5-14.5 [facility] CenterXxvvjzqTTDNGAPXWN8416-78-41 12:27:00 Test Item Value Reference Range Interpretation Comments Platelet (test code = Platelet) 336 133-450 [facility] CenterGkursikRTUTUPFQTQ5698-46-54 12:27:00 Test Item Value Reference Range Interpretation Comments MCV (test code = MCV) 80.4 80.0-94.0 [facility] CenterRudzpohSDMXMXMOIZ1019-71-86 12:27:00 Test Item Value Reference Range Interpretation Comments MCH (test code = MCH) 25.7 pg 27.0-31.0 [facility] CenterPcwpkaaNJBMNXDUCT0131-37-94 12:27:00 Test Item Value Reference Range Interpretation Comments MCHC (test code = MCHC) 32.0 32.0-36.0 [facility] CenterGarskftQTRBKSCRDQ5635-30-35 12:27:00 Test Item Value Reference Range Interpretation Comments RBC (test code = RBC) 3.65 4.70-6.10 [facility] CenterXbbkhojQGWIAEYJYC6545-77-03 12:27:00 Test Item Value Reference Range Interpretation Comments WBC (test code = WBC) 6.8 3.7-10.4 [facility] CenterDnbrzcfGFICCQSWWV3514-89-45 12:27:00 Test Item Value Reference Range Interpretation Comments Hgb (test code = Hgb) 9.4 14.0-18.0 [facility] CenterDdmlhrzUOUPSYBCPY4409-39-67 12:27:00 Test Item Value Reference Range Interpretation Comments Hct (test code = Hct) 29.3 42.0-54.0 [facility] CenterAqzaxdxKMXQYKLCAC6007-58-93 12:27:00 Test Item Value Reference Range Interpretation Comments Lymphocytes # (test code = Lymphocytes 1.4 1.0-5.5 #) [facility] CenterXqdcmzeUJYVODJAYE3333-63-95 12:27:00 Test Item Value Reference Range Interpretation Comments Monocytes # (test code 0.6 See_Comment [Aut omated message] The = Monocytes #) system which generated this result tra nsmitted reference range : <=0.8. The reference r ondina was not used to int erpret this result as normal/abnormal . [facility] CenterYzjinytHWCLGZOMOF0432-41-76 12:27:00 Test Item Value Reference Range Interpretation Comments Basophils # (test code 0.1 See_Comment [Aut omated message] The = Basophils #) system which generated this result tra nsmitted reference range : <=0.2. The reference r ondina was not used to int erpret this result as normal/abnormal . [facility] CenterKtpddjeXWMERBZRZG2618-25-63 12:27:00 Test Item Value Reference Range Interpretation Comments Neutrophils # (test code = Neutrophils 4.5 1.5-8.1 #) [facility] CenterVrcbouwKSLDLKALHZ3129-00-83 12:27:00 Test Item Value Reference Range Interpretation Comments Lymphocytes (test code = Lymphocytes) 19.9 20.0-40.0 [facility] CenterKkdrzyyYUPDVEJDYV4721-83-28 12:27:00 Test Item Value Reference Range Interpretation Comments Monocytes (test code = Monocytes) 8.8 2.0-12.0 [facility] CenterWrsvomtFYAZICSQWE2000-27-16 12:27:00 Test Item Value Reference Range Interpretation Comments Segs (test code = Segs) 66.4 45.0-75.0 [facility] CenterXdpootpXXDFXTKVMR8749-13-04 12:27:00 Test Item Value Reference Range Interpretation Comments Eosinophils # (test code 0.3 See_Comment [A utomated message] The = Eosinophils #) system whic h generated this result tra nsmitted reference range : <=0.5. The reference r ondina was not used to int erpret this result as normal/abnormal . [facility] CenterUyaszpuCJFWXYIRIG3919-47-16 12:27:00 Test Item Value Reference Range Interpretation Comments Basophils (test code = 1.0 See_Comment [Aut omated message] The Basophils) system which ge nerated this result tra nsmitted reference range : <=1.0. The reference r ondina was not used to int erpret this result as normal/abnormal . [facility] CenterSupkezoJKJBPFEQXU8629-85-81 12:27:00 Test Item Value Reference Range Interpretation Comments Eosinophils (test code = 3.9 See_Comment [A utomated message] The Eosinophils) system which ge nerated this result tra nsmitted reference range : <=4.0. The reference r ondina was not used to int erpret this result as normal/abnormal . [facility]aOijffteLGXOBZWAKSUR5103-96-51 12:27:00 Test Item Value Reference Range Interpretation Comments AGAP (test code = AGAP) 12.7 10.0-20.0 [facility]aPheyyczPRNCHUPOYGFB3637-63-26 12:27:00 Test Item Value Reference Range Interpretation Comments Glucose Lvl (test code = Glucose Lvl) 79 70-99 [facility]aFpfmamkVQURDADVXLAC8860-83-02 12:27:00 Test Item Value Reference Range Interpretation Comments Potassium Lvl (test code = Potassium 3.7 3.5-5.1 Lvl) [facility]penaSmrncsbXAUIRALKEHNN9883-95-87 12:27:00 Test Item Value Reference Range Interpretation Comments Sodium Lvl (test code = Sodium Lvl) 144 135-145 [facility] AlpenaIkmvmreBAKFCLHNUWQH9162-09-15 12:27:00 Test Item Value Reference Range Interpretation Comments Chloride Lvl (test code = Chloride Lvl) 109 95-109 [facility] AlpenaIvfrtgzCZNBEFFIERNM3080-47-07 12:27:00 Test Item Value Reference Range Interpretation Comments eGFR (test code = eGFR) 104 [facility] AlpenaSqentdcKUKLYIRUAWZT5838-53-82 12:27:00 Test Item Value Reference Range Interpretation Comments Creatinine Lvl (test code = Creatinine 0.68 0.50-1.40 Lvl) [facility]penaDcapztxQTMNPUFULSUL6406-81-56 12:27:00 Test Item Value Reference Range Interpretation Comments Calcium Lvl (test code = Calcium Lvl) 8.2 8.5-10.5 [facility] AlpenaZnieogdQWYDXQMEGENF1207-84-40 12:27:00 Test Item Value Reference Range Interpretation Comments CO2 (test code = CO2) 26 24-32 [facility] AlpenaIaktregTRMLUPEGGGLP6931-79-38 12:27:00 Test Item Value Reference Range Interpretation Comments BUN (test code = BUN) 9 7-22 [facility] CenterXolslrqRWMCUQXOJN6459-90-55 12:27:00 Test Item Value Reference Range Interpretation Comments MPV (test code = MPV) 8.2 7.4-10.4 [facility] CenterSmzvdfiMNNCZVWTXL6415-58-83 12:27:00 Test Item Value Reference Range Interpretation Comments RDW (test code = RDW) 17.6 11.5-14.5 [facility] CenterUzyqvewXWLHEFWARO0140-98-97 12:27:00 Test Item Value Reference Range Interpretation Comments Platelet (test code = Platelet) 336 232-450 [facility] CenterLroxeczLJJSATMCBR0771-99-37 12:27:00 Test Item Value Reference Range Interpretation Comments MCV (test code = MCV) 80.4 80.0-94.0 [place] 539438-12-20 12:27:00 Test Item Value Reference Range Interpretation Comments MCH (test code = MCH) 25.7 pg 27.0-31.0 [facility] CenterIcbejvqAMJUEMIPTU2605-39-18 12:27:00 Test Item Value Reference Range Interpretation Comments MCHC (test code = MCHC) 32.0 32.0-36.0 [facility] CenterOmrsnomZDQLOGRVYU1539-34-27 12:27:00 Test Item Value Reference Range Interpretation Comments RBC (test code = RBC) 3.65 4.70-6.10 [facility] CenterHrfurypCIMQGSOYEA7801-12-24 12:27:00 Test Item Value Reference Range Interpretation Comments WBC (test code = WBC) 6.8 3.7-10.4 [facility] CenterPfrjdehEXTPRKDAOP3253-35-27 12:27:00 Test Item Value Reference Range Interpretation Comments Hgb (test code = Hgb) 9.4 14.0-18.0 [facility] CenterGiusjuhUKZTPWMLPF5657-31-16 12:27:00 Test Item Value Reference Range Interpretation Comments Hct (test code = Hct) 29.3 42.0-54.0 [facility] CenterSrloiejVQXLLEEZFL2884-51-50 12:27:00 Test Item Value Reference Range Interpretation Comments Lymphocytes # (test code = Lymphocytes 1.4 1.0-5.5 #) [facility] CenterDyptavmZNHQJSIXSU8296-25-74 12:27:00 Test Item Value Reference Range Interpretation Comments Monocytes # (test code 0.6 See_Comment [Aut omated message] The = Monocytes #) system which generated this result tra nsmitted reference range : <=0.8. The reference r ondina was not used to int erpret this result as normal/abnormal . [facility] CenterJzdpflwWYNDXVFPCZ6243-71-10 12:27:00 Test Item Value Reference Range Interpretation Comments Basophils # (test code 0.1 See_Comment [Aut omated message] The = Basophils #) system which generated this result tra nsmitted reference range : <=0.2. The reference r ondina was not used to int erpret this result as normal/abnormal . [facility] CenterCieuiypKTUZWOSXPC9178-83-20 12:27:00 Test Item Value Reference Range Interpretation Comments Neutrophils # (test code = Neutrophils 4.5 1.5-8.1 #) [facility] CenterCbpyhgkRIHQTJGJMW7835-83-41 12:27:00 Test Item Value Reference Range Interpretation Comments Lymphocytes (test code = Lymphocytes) 19.9 20.0-40.0 [facility] CenterDbmbbgwRGAZZFNYLO2899-60-33 12:27:00 Test Item Value Reference Range Interpretation Comments Monocytes (test code = Monocytes) 8.8 2.0-12.0 [facility] CenterYdyqcnjZKHBLLTLOT9083-87-30 12:27:00 Test Item Value Reference Range Interpretation Comments Segs (test code = Segs) 66.4 45.0-75.0 [facility] CenterIqpxxmsYRSLADZNPD7825-89-77 12:27:00 Test Item Value Reference Range Interpretation Comments Eosinophils # (test code 0.3 See_Comment [A utomated message] The = Eosinophils #) system wh h generated this result tra nsmitted reference range : <=0.5. The reference r ondina was not used to int erpret this result as normal/abnormal . [facility] CenterXohdkncVJAPSJTCSI9118-57-00 12:27:00 Test Item Value Reference Range Interpretation Comments Basophils (test code = 1.0 See_Comment [Aut omated message] The Basophils) system which ge nerated this result tra nsmitted reference range : <=1.0. The reference r ondina was not used to int erpret this result as normal/abnormal . [facility] CenterCibduioJJDNKTTSSM4840-89-84 12:27:00 Test Item Value Reference Range Interpretation Comments Eosinophils (test code = 3.9 See_Comment [A utomated message] The Eosinophils) system which ge nerated this result tra nsmitted reference range : <=4.0. The reference r ondina was not used to int erpret this result as normal/abnormal . [facility]penaBiqwpirVXIPYGOHXTOT3119-68-58 12:27:00 Test Item Value Reference Range Interpretation Comments AGAP (test code = AGAP) 12.7 10.0-20.0 [facility]penaOoybqjeODLUCNXHNBYJ3620-51-70 12:27:00 Test Item Value Reference Range Interpretation Comments Glucose Lvl (test code = Glucose Lvl) 79 70-99 [facility] AlpenaRistmruZTRSJGJQAVHJ0828-27-12 12:27:00 Test Item Value Reference Range Interpretation Comments Potassium Lvl (test code = Potassium 3.7 3.5-5.1 Lvl) [facility]penaFpveosrIZPREYHRYHUW2461-07-55 12:27:00 Test Item Value Reference Range Interpretation Comments Sodium Lvl (test code = Sodium Lvl) 144 135-145 [facility] AlpenaMbujeczHFOTIOQQTYFP1328-32-24 12:27:00 Test Item Value Reference Range Interpretation Comments Chloride Lvl (test code = Chloride Lvl) 109 95-109 [facility] AlpenaYycilqvUPPGBGNISEEN1580-61-52 12:27:00 Test Item Value Reference Range Interpretation Comments eGFR (test code = eGFR) 104 [facility]penaCdzmcajVEWKVHJGVVPF1666-37-45 12:27:00 Test Item Value Reference Range Interpretation Comments Creatinine Lvl (test code = Creatinine 0.68 0.50-1.40 Lvl) [facility]penaApuhmzcKYAHWHCNQLXU9692-66-66 12:27:00 Test Item Value Reference Range Interpretation Comments Calcium Lvl (test code = Calcium Lvl) 8.2 8.5-10.5 [facility] AlpenaVdojoppEFPDOKCSNKQT6142-03-98 12:27:00 Test Item Value Reference Range Interpretation Comments CO2 (test code = CO2) 26 24-32 [facility] AlpenaIzcllhuSGBKFBBYUEBP9916-54-09 12:27:00 Test Item Value Reference Range Interpretation Comments BUN (test code = BUN) 9 7-22 [facility] CenterAcbkmagWWUSTPFGXD0895-00-16 12:27:00 Test Item Value Reference Range Interpretation Comments MPV (test code = MPV) 8.2 7.4-10.4 [facility] CenterZixkgojNBHBZWJOYB0434-79-71 12:27:00 Test Item Value Reference Range Interpretation Comments RDW (test code = RDW) 17.6 11.5-14.5 [facility] CenterTpbtngnUODXWBMJDM5220-76-97 12:27:00 Test Item Value Reference Range Interpretation Comments Platelet (test code = Platelet) 336 133-450 [facility] CenterIrcdqufUWRLNPPDBU8726-87-78 12:27:00 Test Item Value Reference Range Interpretation Comments MCV (test code = MCV) 80.4 80.0-94.0 [facility] CenterNciotbfRRPQOUKDSB2529-64-67 12:27:00 Test Item Value Reference Range Interpretation Comments MCH (test code = MCH) 25.7 pg 27.0-31.0 [facility] CenterZynxzzcQGNMTWIGHT8808-04-41 12:27:00 Test Item Value Reference Range Interpretation Comments MCHC (test code = MCHC) 32.0 32.0-36.0 [facility] CenterJzxboupSIVRBCEJNO7307-89-30 12:27:00 Test Item Value Reference Range Interpretation Comments RBC (test code = RBC) 3.65 4.70-6.10 [facility] CenterLuphjnyTEYIITGHZW0773-91-85 12:27:00 Test Item Value Reference Range Interpretation Comments WBC (test code = WBC) 6.8 3.7-10.4 [facility] CenterSwrgikdZGVLVNJOGG1475-60-63 12:27:00 Test Item Value Reference Range Interpretation Comments Hgb (test code = Hgb) 9.4 14.0-18.0 [place] [id number] 12:27:00 Test Item Value Reference Range Interpretation Comments Hct (test code = Hct) 29.3 42.0-54.0 [facility] CenterLffymfkXOIHCTIHSS6363-92-88 12:27:00 Test Item Value Reference Range Interpretation Comments Lymphocytes # (test code = Lymphocytes 1.4 1.0-5.5 #) [facility] CenterEucpnkiDGGRFRGJIK8363-42-32 12:27:00 Test Item Value Reference Range Interpretation Comments Monocytes # (test code 0.6 See_Comment [Aut omated message] The = Monocytes #) system which generated this result tra nsmitted reference range : <=0.8. The reference r ondina was not used to int erpret this result as normal/abnormal . [facility] CenterXdpdyexUJQBGTSEAV1649-98-93 12:27:00 Test Item Value Reference Range Interpretation Comments Basophils # (test code 0.1 See_Comment [Aut omated message] The = Basophils #) system which generated this result tra nsmitted reference range : <=0.2. The reference r ondina was not used to int erpret this result as normal/abnormal . [facility]HhzixscJYIBHJSEEZ7786-36-45 12:27:00 Test Item Value Reference Range Interpretation Comments Neutrophils # (test code = Neutrophils 4.5 1.5-8.1 #) [facility] CenterAxibvdtKQAAHNXYTR5404-71-21 12:27:00 Test Item Value Reference Range Interpretation Comments Lymphocytes (test code = Lymphocytes) 19.9 20.0-40.0 [facility] CenterWhfnubxKQHMPDMNDT2236-61-66 12:27:00 Test Item Value Reference Range Interpretation Comments Monocytes (test code = Monocytes) 8.8 2.0-12.0 [facility] CenterCiwcbduAMITOBLMMM8929-29-15 12:27:00 Test Item Value Reference Range Interpretation Comments Segs (test code = Segs) 66.4 45.0-75.0 [facility] CenterTvtdmzfCYNWIEQKOU9057-38-68 12:27:00 Test Item Value Reference Range Interpretation Comments Eosinophils # (test code 0.3 See_Comment [A utomated message] The = Eosinophils #) system whic h generated this result tra nsmitted reference range : <=0.5. The reference r ondina was not used to int erpret this result as normal/abnormal . [facility] CenterNnqsaknYFPLBFXWDO8350-41-71 12:27:00 Test Item Value Reference Range Interpretation Comments Basophils (test code = 1.0 See_Comment [Aut omated message] The Basophils) system which ge nerated this result tra nsmitted reference range : <=1.0. The reference r ondina was not used to int erpret this result as normal/abnormal . [facility] CenterPxwaaekLBTUCZROOL4330-60-01 12:27:00 Test Item Value Reference Range Interpretation Comments Eosinophils (test code = 3.9 See_Comment [A utomated message] The Eosinophils) system which ge nerated this result tra nsmitted reference range : <=4.0. The reference r ondina was not used to int erpret this result as normal/abnormal . [facility]pdzobeNGRUQYOBKECO5438-27-97 12:27:00 Test Item Value Reference Range Interpretation Comments AGAP (test code = AGAP) 12.7 10.0-20.0 [facility]aArsponqXSFMZNABPGFS3144-21-29 12:27:00 Test Item Value Reference Range Interpretation Comments Glucose Lvl (test code = Glucose Lvl) 79 70-99 [facility]aDvhvazyPHXPHCUUDQDU4982-47-77 12:27:00 Test Item Value Reference Range Interpretation Comments Potassium Lvl (test code = Potassium 3.7 3.5-5.1 Lvl) [facility]aOthwcjlIKEQCLIKTFFY7009-60-54 12:27:00 Test Item Value Reference Range Interpretation Comments Sodium Lvl (test code = Sodium Lvl) 144 135-145 [facility]aKmtxydmXKWYBFQKDKVP7308-35-49 12:27:00 Test Item Value Reference Range Interpretation Comments Chloride Lvl (test code = Chloride Lvl) 109 95-109 [facility]aNhmvbybDXDXNJYQNTLX5975-03-94 12:27:00 Test Item Value Reference Range Interpretation Comments eGFR (test code = eGFR) 104 [facility]aOdqrgzcSQMJXZXEZAAH1671-17-04 12:27:00 Test Item Value Reference Range Interpretation Comments Creatinine Lvl (test code = Creatinine 0.68 0.50-1.40 Lvl) [facility]aAsookqhDIRBQTALWVQZ5317-70-85 12:27:00 Test Item Value Reference Range Interpretation Comments Calcium Lvl (test code = Calcium Lvl) 8.2 8.5-10.5 [facility]aWyozoheFZCJDZRTBDGD9811-98-21 12:27:00 Test Item Value Reference Range Interpretation Comments CO2 (test code = CO2) 26 24-32 [facility]aCdevweoYWXCSBAVLSDW7784-76-75 12:27:00 Test Item Value Reference Range Interpretation Comments BUN (test code = BUN) 9 7-22 [facility] CenterWhodnkkYVILNBXVQP5139-01-35 12:27:00 Test Item Value Reference Range Interpretation Comments MPV (test code = MPV) 8.2 7.4-10.4 [facility] CenterEkrgderOQMMRUUJAT4558-81-54 12:27:00 Test Item Value Reference Range Interpretation Comments RDW (test code = RDW) 17.6 11.5-14.5 [facility] CenterSvxjlyyHNYGYVSANC8911-29-15 12:27:00 Test Item Value Reference Range Interpretation Comments Platelet (test code = Platelet) 336 133-450 [facility] CenterEzknbdzRCBZXXAJYY4259-43-94 12:27:00 Test Item Value Reference Range Interpretation Comments MCV (test code = MCV) 80.4 80.0-94.0 [facility] CenterCenrapwGDZJELUDHS4719-60-39 12:27:00 Test Item Value Reference Range Interpretation Comments MCH (test code = MCH) 25.7 pg 27.0-31.0 [facility] CenterBwhicoyWGUKEYCAIG6217-87-83 12:27:00 Test Item Value Reference Range Interpretation Comments MCHC (test code = MCHC) 32.0 32.0-36.0 [facility] CenterLjnxaqxLROOMWWRCF2176-10-60 12:27:00 Test Item Value Reference Range Interpretation Comments RBC (test code = RBC) 3.65 4.70-6.10 [facility] CenterIogffiwFSHBBSZTFY7724-73-94 12:27:00 Test Item Value Reference Range Interpretation Comments WBC (test code = WBC) 6.8 3.7-10.4 [facility] CenterHolqwxrLMIUDLQBSJ3871-52-24 12:27:00 Test Item Value Reference Range Interpretation Comments Hgb (test code = Hgb) 9.4 14.0-18.0 [facility] CenterNsjdenbVGOOWEAIKO0243-45-93 12:27:00 Test Item Value Reference Range Interpretation Comments Hct (test code = Hct) 29.3 42.0-54.0 [facility] CenterBekjtcrLMUMYQTIXZ0029-67-13 12:27:00 Test Item Value Reference Range Interpretation Comments Lymphocytes # (test code = Lymphocytes 1.4 1.0-5.5 #) [facility] CenterSufqdfjKGAXSFDJFK1433-39-09 12:27:00 Test Item Value Reference Range Interpretation Comments Monocytes # (test code 0.6 See_Comment [Aut omated message] The = Monocytes #) system which generated this result tra nsmitted reference range : <=0.8. The reference r ondina was not used to int erpret this result as normal/abnormal . [facility] CenterAtnoocgBONMCXMBWQ2753-26-00 12:27:00 Test Item Value Reference Range Interpretation Comments Basophils # (test code 0.1 See_Comment [Aut omated message] The = Basophils #) system which generated this result tra nsmitted reference range : <=0.2. The reference r ondina was not used to int erpret this result as normal/abnormal . [facility] CenterQjastqvXBOOXKQNCS1307-31-42 12:27:00 Test Item Value Reference Range Interpretation Comments Neutrophils # (test code = Neutrophils 4.5 1.5-8.1 #) [facility] CenterGligyoyABYDGVUNFW7815-18-79 12:27:00 Test Item Value Reference Range Interpretation Comments Lymphocytes (test code = Lymphocytes) 19.9 20.0-40.0 [facility] CenterUvtqydmLOYPZTKSQV6532-31-90 12:27:00 Test Item Value Reference Range Interpretation Comments Monocytes (test code = Monocytes) 8.8 2.0-12.0 [facility] CenterQunhauyCQRUEFSOLP1672-41-57 12:27:00 Test Item Value Reference Range Interpretation Comments Segs (test code = Segs) 66.4 45.0-75.0 [facility] CenterOmbztpiEYBOPUEMZI7518-63-14 12:27:00 Test Item Value Reference Range Interpretation Comments Eosinophils # (test code 0.3 See_Comment [A utomated message] The = Eosinophils #) system whic h generated this result tra nsmitted reference range : <=0.5. The reference r ondina was not used to int erpret this result as normal/abnormal . [facility] CenterDhhbodkOOYFATUQDH5211-75-33 12:27:00 Test Item Value Reference Range Interpretation Comments Basophils (test code = 1.0 See_Comment [Aut omated message] The Basophils) system which ge nerated this result tra nsmitted reference range : <=1.0. The reference r ondina was not used to int erpret this result as normal/abnormal . [facility] CenterEloavirOTEMTXJVKH8123-09-71 12:27:00 Test Item Value Reference Range Interpretation Comments Eosinophils (test code = 3.9 See_Comment [A utomated message] The Eosinophils) system which ge nerated this result tra nsmitted reference range : <=4.0. The reference r ondina was not used to int erpret this result as normal/abnormal . [facility]2018-12-19 10:35:00 Test Item Value Reference Range Interpretation Comments Calcium Lvl (test code = Calcium Lvl) 7.8 8.5-10.5 [facility]2018-12-19 10:35:00 Test Item Value Reference Range Interpretation Comments eGFR (test code = eGFR) 112 [facility]2018-12-19 10:35:00 Test Item Value Reference Range Interpretation Comments Creatinine Lvl (test code = Creatinine 0.56 0.50-1.40 Lvl) [place] 751748-12-19 10:35:00 Test Item Value Reference Range Interpretation Comments Phosphorus (test code = Phosphorus) 2.9 2.5-4.5 [facility]2018-12-19 10:35:00 Test Item Value Reference Range Interpretation Comments Glucose Lvl (test code = Glucose Lvl) 89 70-99 [facility]2018-12-19 10:35:00 Test Item Value Reference Range Interpretation Comments CO2 (test code = CO2) 25 24-32 [facility]2018-12-19 10:35:00 Test Item Value Reference Range Interpretation Comments BUN (test code = BUN) 9 7-22 [facility]2018-12-19 10:35:00 Test Item Value Reference Range Interpretation Comments Albumin Lvl (test code = Albumin Lvl) 2.1 3.5-5.0 [facility]2018-12-19 10:35:00 Test Item Value Reference Range Interpretation Comments Chloride Lvl (test code = Chloride Lvl) 111 95-109 [facility]2018-12-19 10:35:00 Test Item Value Reference Range Interpretation Comments Sodium Lvl (test code = Sodium Lvl) 144 135-145 [facility]2018-12-19 10:35:00 Test Item Value Reference Range Interpretation Comments Potassium Lvl (test code = Potassium 3.6 3.5-5.1 Lvl) [facility]2018-12-19 10:35:00 Test Item Value Reference Range Interpretation Comments AGAP (test code = AGAP) 11.6 10.0-20.0 [facility] CenterEgzceswUDHWJSDNOK2556-32-01 10:35:00 Test Item Value Reference Range Interpretation Comments Hgb (test code = Hgb) 9.0 14.0-18.0 [facility] CenterDjscfzqXEWJDLDRUZ4125-96-46 10:35:00 Test Item Value Reference Range Interpretation Comments RBC (test code = RBC) 3.53 4.70-6.10 [facility] CenterLgeodgjROVKRWSXIG3023-23-60 10:35:00 Test Item Value Reference Range Interpretation Comments MCV (test code = MCV) 81.1 80.0-94.0 [facility] CenterTtxclacSIBPUTROBX6519-84-21 10:35:00 Test Item Value Reference Range Interpretation Comments Hct (test code = Hct) 28.6 42.0-54.0 [facility] CenterHhlhzesGRKOLVWTPL7627-48-32 10:35:00 Test Item Value Reference Range Interpretation Comments WBC (test code = WBC) 6.9 3.7-10.4 [facility] CenterEcdisxmTCDPXVCUQF2935-70-58 10:35:00 Test Item Value Reference Range Interpretation Comments MPV (test code = MPV) 7.8 7.4-10.4 [facility] CenterIirfwldGVUXDPVBYH5304-78-42 10:35:00 Test Item Value Reference Range Interpretation Comments Platelet (test code = Platelet) 294 133-450 [facility] CenterVzaxkllVPYFERWTFP5161-88-93 10:35:00 Test Item Value Reference Range Interpretation Comments RDW (test code = RDW) 17.5 11.5-14.5 [facility] CenterQgtspsnOQTDBMBUTA7982-50-37 10:35:00 Test Item Value Reference Range Interpretation Comments MCHC (test code = MCHC) 31.7 32.0-36.0 [facility] CenterNobacdaBCHNPEIDGM4456-62-82 10:35:00 Test Item Value Reference Range Interpretation Comments MCH (test code = MCH) 25.7 pg 27.0-31.0 [facility] CenterEycmnrdQXZLFAIJMG6111-94-55 10:35:00 Test Item Value Reference Range Interpretation Comments Lymphocytes (test code = Lymphocytes) 18.5 20.0-40.0 [facility] CenterHrtdsgcGKXOQHQVFK2531-80-29 10:35:00 Test Item Value Reference Range Interpretation Comments Segs (test code = Segs) 67.0 45.0-75.0 [facility] CenterUjuxcgqMKXGKYWCZT5333-23-60 10:35:00 Test Item Value Reference Range Interpretation Comments Monocytes (test code = Monocytes) 9.8 2.0-12.0 [facility] CenterWhennypHZCYCBDNIR1222-14-19 10:35:00 Test Item Value Reference Range Interpretation Comments Basophils (test code = 1.0 See_Comment [Aut omated message] The Basophils) system which ge nerated this result tra nsmitted reference range : <=1.0. The reference r ondina was not used to int erpret this result as normal/abnormal . [facility] CenterUukiqkoVZPIHHRXAH4366-13-32 10:35:00 Test Item Value Reference Range Interpretation Comments Eosinophils (test code = 3.7 See_Comment [A utomated message] The Eosinophils) system which ge nerated this result tra nsmitted reference range : <=4.0. The reference r ondina was not used to int erpret this result as normal/abnormal . [facility] CenterXghuisrXARMTQJZXJ1920-00-75 10:35:00 Test Item Value Reference Range Interpretation Comments Monocytes # (test code 0.7 See_Comment [Aut omated message] The = Monocytes #) system which generated this result tra nsmitted reference range : <=0.8. The reference r ondina was not used to int erpret this result as normal/abnormal . [place] 539438-12-19 10:35:00 Test Item Value Reference Range Interpretation Comments Lymphocytes # (test code = Lymphocytes 1.3 1.0-5.5 #) [facility] CenterDlgreotMDXUXPJKUT0559-05-59 10:35:00 Test Item Value Reference Range Interpretation Comments Neutrophils # (test code = Neutrophils 4.6 1.5-8.1 #) [facility] CenterNfggeckPFVDVCOXRG3539-34-30 10:35:00 Test Item Value Reference Range Interpretation Comments Basophils # (test code 0.1 See_Comment [Aut omated message] The = Basophils #) system which generated this result tra nsmitted reference range : <=0.2. The reference r ondina was not used to int erpret this result as normal/abnormal . [facility] CenterOjrcifeXJEBUVLZYA8606-61-58 10:35:00 Test Item Value Reference Range Interpretation Comments Eosinophils # (test code 0.3 See_Comment [A utomated message] The = Eosinophils #) system whic h generated this result tra nsmitted reference range : <=0.5. The reference r ondina was not used to int erpret this result as normal/abnormal . [place] 19651018-12-19 10:35:00 Test Item Value Reference Range Interpretation Comments Vanco Tr (test code = Vanco Tr) 21.8 [place] 19651018-12-19 10:35:00 Test Item Value Reference Range Interpretation Comments Vanco Tr TND (test code = Vanco Tr 0500 1 TND) [facility]2018-12-19 10:35:00 Test Item Value Reference Range Interpretation Comments Calcium Lvl (test code = Calcium Lvl) 7.8 8.5-10.5 [facility]2018-12-19 10:35:00 Test Item Value Reference Range Interpretation Comments eGFR (test code = eGFR) 112 [facility]2018-12-19 10:35:00 Test Item Value Reference Range Interpretation Comments Creatinine Lvl (test code = Creatinine 0.56 0.50-1.40 Lvl) [facility]2018-12-19 10:35:00 Test Item Value Reference Range Interpretation Comments Phosphorus (test code = Phosphorus) 2.9 2.5-4.5 [facility]2018-12-19 10:35:00 Test Item Value Reference Range Interpretation Comments Glucose Lvl (test code = Glucose Lvl) 89 70-99 [facility]2018-12-19 10:35:00 Test Item Value Reference Range Interpretation Comments CO2 (test code = CO2) 25 24-32 [facility]2018-12-19 10:35:00 Test Item Value Reference Range Interpretation Comments BUN (test code = BUN) 9 7-22 [facility]2018-12-19 10:35:00 Test Item Value Reference Range Interpretation Comments Albumin Lvl (test code = Albumin Lvl) 2.1 3.5-5.0 [facility]2018-12-19 10:35:00 Test Item Value Reference Range Interpretation Comments Chloride Lvl (test code = Chloride Lvl) 111 95-109 [facility]2018-12-19 10:35:00 Test Item Value Reference Range Interpretation Comments Sodium Lvl (test code = Sodium Lvl) 144 135-145 [facility]2018-12-19 10:35:00 Test Item Value Reference Range Interpretation Comments Potassium Lvl (test code = Potassium 3.6 3.5-5.1 Lvl) [facility]2018-12-19 10:35:00 Test Item Value Reference Range Interpretation Comments AGAP (test code = AGAP) 11.6 10.0-20.0 [facility] CenterAmxooqrXCKIMWCHDD1289-28-47 10:35:00 Test Item Value Reference Range Interpretation Comments Hgb (test code = Hgb) 9.0 14.0-18.0 [facility] CenterAomiggmMIRHSQPQEC9281-57-93 10:35:00 Test Item Value Reference Range Interpretation Comments RBC (test code = RBC) 3.53 4.70-6.10 [facility] CenterCjaithyCECYEZAJBL4281-28-11 10:35:00 Test Item Value Reference Range Interpretation Comments MCV (test code = MCV) 81.1 80.0-94.0 [facility] CenterBgcofryDUXKCZABPY6140-74-24 10:35:00 Test Item Value Reference Range Interpretation Comments Hct (test code = Hct) 28.6 42.0-54.0 [facility] CenterIjxqhmaTMJVGCZCGV8447-29-17 10:35:00 Test Item Value Reference Range Interpretation Comments WBC (test code = WBC) 6.9 3.7-10.4 [facility] CenterQnztcodWGIHLSIWYA4170-61-85 10:35:00 Test Item Value Reference Range Interpretation Comments MPV (test code = MPV) 7.8 7.4-10.4 [facility] CenterFwgejoiIPZVFIBMPH3397-43-31 10:35:00 Test Item Value Reference Range Interpretation Comments Platelet (test code = Platelet) 294 133-450 [facility] CenterIpkqopaJXUSDLZUDU1969-75-55 10:35:00 Test Item Value Reference Range Interpretation Comments RDW (test code = RDW) 17.5 11.5-14.5 [facility] CenterHsalvuaSQRZCGOVNL8871-06-05 10:35:00 Test Item Value Reference Range Interpretation Comments MCHC (test code = MCHC) 31.7 32.0-36.0 [facility] CenterHdypjvuQASOEGEKUS8827-84-05 10:35:00 Test Item Value Reference Range Interpretation Comments MCH (test code = MCH) 25.7 pg 27.0-31.0 [facility] CenterJsjlsiiHSAUCJTWGP3460-20-44 10:35:00 Test Item Value Reference Range Interpretation Comments Lymphocytes (test code = Lymphocytes) 18.5 20.0-40.0 [facility] CenterPcwtnqlJNKPZMOXTK8657-07-43 10:35:00 Test Item Value Reference Range Interpretation Comments Segs (test code = Segs) 67.0 45.0-75.0 [facility] CenterEjefiplIRFNFCDRZL3264-37-54 10:35:00 Test Item Value Reference Range Interpretation Comments Monocytes (test code = Monocytes) 9.8 2.0-12.0 [facility] CenterCuwdprnHEAUDFCZPS8016-56-45 10:35:00 Test Item Value Reference Range Interpretation Comments Basophils (test code = 1.0 See_Comment [Aut omated message] The Basophils) system which ge nerated this result tra nsmitted reference range : <=1.0. The reference r ondina was not used to int erpret this result as normal/abnormal . [facility] CenterCmctjkrFRKDWWPPJM3043-95-15 10:35:00 Test Item Value Reference Range Interpretation Comments Eosinophils (test code = 3.7 See_Comment [A utomated message] The Eosinophils) system which ge nerated this result tra nsmitted reference range : <=4.0. The reference r ondina was not used to int erpret this result as normal/abnormal . [facility] CenterBzrrnvyLUUNJGUCQJ9944-50-47 10:35:00 Test Item Value Reference Range Interpretation Comments Monocytes # (test code 0.7 See_Comment [Aut omated message] The = Monocytes #) system which generated this result tra nsmitted reference range : <=0.8. The reference r ondina was not used to int erpret this result as normal/abnormal . [facility] CenterTexzzyfFYBWGHQTGC9868-85-99 10:35:00 Test Item Value Reference Range Interpretation Comments Lymphocytes # (test code = Lymphocytes 1.3 1.0-5.5 #) [facility] CenterDsikflvVCYKYVKZTA1881-65-38 10:35:00 Test Item Value Reference Range Interpretation Comments Neutrophils # (test code = Neutrophils 4.6 1.5-8.1 #) [facility] CenterYndnafjQGHDOYPFUF7913-70-39 10:35:00 Test Item Value Reference Range Interpretation Comments Basophils # (test code 0.1 See_Comment [Aut omated message] The = Basophils #) system which generated this result tra nsmitted reference range : <=0.2. The reference r ondina was not used to int erpret this result as normal/abnormal . [facility] CenterIkfqjmfVOIBPMHWBA4073-62-59 10:35:00 Test Item Value Reference Range Interpretation Comments Eosinophils # (test code 0.3 See_Comment [A utomated message] The = Eosinophils #) system whic h generated this result tra nsmitted reference range : <=0.5. The reference r ondina was not used to int erpret this result as normal/abnormal . [place] 19651018-12-19 10:35:00 Test Item Value Reference Range Interpretation Comments Vanco Tr (test code = Vanco Tr) 21.8 [facility]SQDWFZKOUO8566[facility]-43 10:35:00 Test Item Value Reference Range Interpretation Comments Vanco Tr TND (test code = Vanco Tr 0500 1 TND) [facility]2018-12-19 10:35:00 Test Item Value Reference Range Interpretation Comments Calcium Lvl (test code = Calcium Lvl) 7.8 8.5-10.5 [facility]2018-12-19 10:35:00 Test Item Value Reference Range Interpretation Comments eGFR (test code = eGFR) 112 [facility]2018-12-19 10:35:00 Test Item Value Reference Range Interpretation Comments Creatinine Lvl (test code = Creatinine 0.56 0.50-1.40 Lvl) [facility]2018-12-19 10:35:00 Test Item Value Reference Range Interpretation Comments Phosphorus (test code = Phosphorus) 2.9 2.5-4.5 [facility]2018-12-19 10:35:00 Test Item Value Reference Range Interpretation Comments Glucose Lvl (test code = Glucose Lvl) 89 70-99 [facility]2018-12-19 10:35:00 Test Item Value Reference Range Interpretation Comments CO2 (test code = CO2) 25 24-32 [facility]2018-12-19 10:35:00 Test Item Value Reference Range Interpretation Comments BUN (test code = BUN) 9 7-22 [facility]2018-12-19 10:35:00 Test Item Value Reference Range Interpretation Comments Albumin Lvl (test code = Albumin Lvl) 2.1 3.5-5.0 [facility]2018-12-19 10:35:00 Test Item Value Reference Range Interpretation Comments Chloride Lvl (test code = Chloride Lvl) 111 95-109 [facility]2018-12-19 10:35:00 Test Item Value Reference Range Interpretation Comments Sodium Lvl (test code = Sodium Lvl) 144 135-145 [facility]2018-12-19 10:35:00 Test Item Value Reference Range Interpretation Comments Potassium Lvl (test code = Potassium 3.6 3.5-5.1 Lvl) [facility]2018-12-19 10:35:00 Test Item Value Reference Range Interpretation Comments AGAP (test code = AGAP) 11.6 10.0-20.0 [facility] CenterLevawkgYTABVPVEPX4805-19-25 10:35:00 Test Item Value Reference Range Interpretation Comments Hgb (test code = Hgb) 9.0 14.0-18.0 [facility] CenterTphmofrOOAKGLJKTI7076-81-45 10:35:00 Test Item Value Reference Range Interpretation Comments RBC (test code = RBC) 3.53 4.70-6.10 [facility] CenterImrausdOULUACNVIV5476-22-77 10:35:00 Test Item Value Reference Range Interpretation Comments MCV (test code = MCV) 81.1 80.0-94.0 [address]12-19 10:35:00 Test Item Value Reference Range Interpretation Comments Hct (test code = Hct) 28.6 42.0-54.0 [facility] CenterAmnlgzuWWISFSFAAM3253-68-21 10:35:00 Test Item Value Reference Range Interpretation Comments WBC (test code = WBC) 6.9 3.7-10.4 [facility] CenterGnqiwzdDEHFLDFGIX7531-59-22 10:35:00 Test Item Value Reference Range Interpretation Comments MPV (test code = MPV) 7.8 7.4-10.4 [facility] CenterWpfqjldGUILTBOLKM0498-38-72 10:35:00 Test Item Value Reference Range Interpretation Comments Platelet (test code = Platelet) 294 133-450 [facility] CenterFaeoebfSLAOSLTDLH4711-89-05 10:35:00 Test Item Value Reference Range Interpretation Comments RDW (test code = RDW) 17.5 11.5-14.5 [facility]QqeyfjeELXIFEQVVJ8837-87-24 10:35:00 Test Item Value Reference Range Interpretation Comments MCHC (test code = MCHC) 31.7 32.0-36.0 [facility] CenterEzecnsrMXXWDNCDNV8127-00-32 10:35:00 Test Item Value Reference Range Interpretation Comments MCH (test code = MCH) 25.7 pg 27.0-31.0 [facility] CenterPdnbyxzRCVPBECWIU9972-21-50 10:35:00 Test Item Value Reference Range Interpretation Comments Lymphocytes (test code = Lymphocytes) 18.5 20.0-40.0 [facility] CenterGsscbyyNNRCRUYAOL3039-96-11 10:35:00 Test Item Value Reference Range Interpretation Comments Segs (test code = Segs) 67.0 45.0-75.0 [facility] CenterRazabsgGUXNHZWCEK0517-61-81 10:35:00 Test Item Value Reference Range Interpretation Comments Monocytes (test code = Monocytes) 9.8 2.0-12.0 [facility] CenterPqxnvznVPMNAXYRZR9329-26-12 10:35:00 Test Item Value Reference Range Interpretation Comments Basophils (test code = 1.0 See_Comment [Aut omated message] The Basophils) system which ge nerated this result tra nsmitted reference range : <=1.0. The reference r ondina was not used to int erpret this result as normal/abnormal . [facility] CenterJlqbdzzNRRUQTGIBA2705-58-44 10:35:00 Test Item Value Reference Range Interpretation Comments Eosinophils (test code = 3.7 See_Comment [A utomated message] The Eosinophils) system which ge nerated this result tra nsmitted reference range : <=4.0. The reference r ondina was not used to int erpret this result as normal/abnormal . [facility] CenterSukdetdOKBLOXJKYF4366-98-03 10:35:00 Test Item Value Reference Range Interpretation Comments Monocytes # (test code 0.7 See_Comment [Aut omated message] The = Monocytes #) system which generated this result tra nsmitted reference range : <=0.8. The reference r ondina was not used to int erpret this result as normal/abnormal . [facility] CenterJhctczxIRHQBXIOEL7033-06-78 10:35:00 Test Item Value Reference Range Interpretation Comments Lymphocytes # (test code = Lymphocytes 1.3 1.0-5.5 #) [facility] CenterVnfvlyaRBRJTPAZHM5074-81-07 10:35:00 Test Item Value Reference Range Interpretation Comments Neutrophils # (test code = Neutrophils 4.6 1.5-8.1 #) [facility] CenterDkwowdpEYVRWTQRMT6194-90-18 10:35:00 Test Item Value Reference Range Interpretation Comments Basophils # (test code 0.1 See_Comment [Aut omated message] The = Basophils #) system which generated this result tra nsmitted reference range : <=0.2. The reference r ondina was not used to int erpret this result as normal/abnormal . [facility] CenterQexjrviKACCPVDMJU1312-93-49 10:35:00 Test Item Value Reference Range Interpretation Comments Eosinophils # (test code 0.3 See_Comment [A utomated message] The = Eosinophils #) system whic h generated this result tra nsmitted reference range : <=0.5. The reference r ondina was not used to int erpret this result as normal/abnormal . [facility]VzhpjawASUDQKDVGR5639-25-41 10:35:00 Test Item Value Reference Range Interpretation Comments Vanco Tr (test code = Vanco Tr) 21.8 [place] 19651018-12-19 10:35:00 Test Item Value Reference Range Interpretation Comments Vanco Tr TND (test code = Vanco Tr 0500 1 TND) [facility]2018-12-19 10:35:00 Test Item Value Reference Range Interpretation Comments Calcium Lvl (test code = Calcium Lvl) 7.8 8.5-10.5 [facility]2018-12-19 10:35:00 Test Item Value Reference Range Interpretation Comments eGFR (test code = eGFR) 112 [facility]2018-12-19 10:35:00 Test Item Value Reference Range Interpretation Comments Creatinine Lvl (test code = Creatinine 0.56 0.50-1.40 Lvl) [facility]2018-12-19 10:35:00 Test Item Value Reference Range Interpretation Comments Phosphorus (test code = Phosphorus) 2.9 2.5-4.5 [facility]2018-12-19 10:35:00 Test Item Value Reference Range Interpretation Comments Glucose Lvl (test code = Glucose Lvl) 89 70-99 [facility]2018-12-19 10:35:00 Test Item Value Reference Range Interpretation Comments CO2 (test code = CO2) 25 24-32 [facility]2018-12-19 10:35:00 Test Item Value Reference Range Interpretation Comments BUN (test code = BUN) 9 7-22 [facility]2018-12-19 10:35:00 Test Item Value Reference Range Interpretation Comments Albumin Lvl (test code = Albumin Lvl) 2.1 3.5-5.0 [facility]2018-12-19 10:35:00 Test Item Value Reference Range Interpretation Comments Chloride Lvl (test code = Chloride Lvl) 111 95-109 [facility]2018-12-19 10:35:00 Test Item Value Reference Range Interpretation Comments Sodium Lvl (test code = Sodium Lvl) 144 135-145 [facility]2018-12-19 10:35:00 Test Item Value Reference Range Interpretation Comments Potassium Lvl (test code = Potassium 3.6 3.5-5.1 Lvl) [facility]2018-12-19 10:35:00 Test Item Value Reference Range Interpretation Comments AGAP (test code = AGAP) 11.6 10.0-20.0 [facility] CenterRegljdeKXLYSFWAWZ9282-67-97 10:35:00 Test Item Value Reference Range Interpretation Comments Hgb (test code = Hgb) 9.0 14.0-18.0 [facility] CenterVkgbpzsRLQEQHOPSP8765-15-64 10:35:00 Test Item Value Reference Range Interpretation Comments RBC (test code = RBC) 3.53 4.70-6.10 [facility] CenterKdovmkrPEHLKFTRQT8796-00-78 10:35:00 Test Item Value Reference Range Interpretation Comments MCV (test code = MCV) 81.1 80.0-94.0 [facility] CenterXlkvgzdGRMBYLUVYW9695-04-56 10:35:00 Test Item Value Reference Range Interpretation Comments Hct (test code = Hct) 28.6 42.0-54.0 [facility] CenterSrnilbgTZFHDGPTDW5013-99-52 10:35:00 Test Item Value Reference Range Interpretation Comments WBC (test code = WBC) 6.9 3.7-10.4 [facility] CenterEhbltrmLKAHABKACY5206-94-08 10:35:00 Test Item Value Reference Range Interpretation Comments MPV (test code = MPV) 7.8 7.4-10.4 [facility] CenterLdwmoimQTNVPXFJEM9182-93-04 10:35:00 Test Item Value Reference Range Interpretation Comments Platelet (test code = Platelet) 294 133-450 [facility] CenterZdedbsuSOULEATQMV5066-63-30 10:35:00 Test Item Value Reference Range Interpretation Comments RDW (test code = RDW) 17.5 11.5-14.5 [facility] CenterZjeglvsABHXZTPAPM9791-22-05 10:35:00 Test Item Value Reference Range Interpretation Comments MCHC (test code = MCHC) 31.7 32.0-36.0 [facility] CenterHpaphguJRCNHXMYNF6037-37-31 10:35:00 Test Item Value Reference Range Interpretation Comments MCH (test code = MCH) 25.7 pg 27.0-31.0 [facility] CenterWkdxiiwTTOGMAYPHY7255-91-03 10:35:00 Test Item Value Reference Range Interpretation Comments Lymphocytes (test code = Lymphocytes) 18.5 20.0-40.0 [facility] CenterDtcfalhBPYMMBSDZN5369-30-49 10:35:00 Test Item Value Reference Range Interpretation Comments Segs (test code = Segs) 67.0 45.0-75.0 [facility] CenterPqkhnwoDXHDUJATQL1383-99-39 10:35:00 Test Item Value Reference Range Interpretation Comments Monocytes (test code = Monocytes) 9.8 2.0-12.0 [facility] CenterImhhorcDATBZCTDGF6882-84-46 10:35:00 Test Item Value Reference Range Interpretation Comments Basophils (test code = 1.0 See_Comment [Aut omated message] The Basophils) system which ge nerated this result tra nsmitted reference range : <=1.0. The reference r ondina was not used to int erpret this result as normal/abnormal . [facility] CenterPzrjuppSTXUJIDQZT5741-65-12 10:35:00 Test Item Value Reference Range Interpretation Comments Eosinophils (test code = 3.7 See_Comment [A utomated message] The Eosinophils) system which ge nerated this result tra nsmitted reference range : <=4.0. The reference r ondina was not used to int erpret this result as normal/abnormal . [facility] CenterEzemasaZUDKHRCRRS9384-72-99 10:35:00 Test Item Value Reference Range Interpretation Comments Monocytes # (test code 0.7 See_Comment [Aut omated message] The = Monocytes #) system which generated this result tra nsmitted reference range : <=0.8. The reference r ondina was not used to int erpret this result as normal/abnormal . [facility] CenterPshqcjyEQCOGHYRIM2244-99-42 10:35:00 Test Item Value Reference Range Interpretation Comments Lymphocytes # (test code = Lymphocytes 1.3 1.0-5.5 #) [facility] CenterEtzjekqMNRPBLBDGA3864-24-83 10:35:00 Test Item Value Reference Range Interpretation Comments Neutrophils # (test code = Neutrophils 4.6 1.5-8.1 #) [facility] CenterWlgqlksZMTEDLJPDI2358-28-38 10:35:00 Test Item Value Reference Range Interpretation Comments Basophils # (test code 0.1 See_Comment [Aut omated message] The = Basophils #) system which generated this result tra nsmitted reference range : <=0.2. The reference r ondina was not used to int erpret this result as normal/abnormal . [facility] CenterAhkivmiRRLHDDYGLN7056-71-70 10:35:00 Test Item Value Reference Range Interpretation Comments Eosinophils # (test code 0.3 See_Comment [A utomated message] The = Eosinophils #) system whic h generated this result tra nsmitted reference range : <=0.5. The reference r ondina was not used to int erpret this result as normal/abnormal . [facility]VhsaasgVAJSATBHZI2977-40-81 10:35:00 Test Item Value Reference Range Interpretation Comments Vanco Tr (test code = Vanco Tr) 21.8 [facility]DhmjxluHNLWAZWSGV8713-77-23 10:35:00 Test Item Value Reference Range Interpretation Comments Michaelo Tr TND (test code = Vanco Tr 0500 1 TND) [facility]SoaemhvRUBAKFDFEQYI1066-23-53 10:29:00 Test Item Value Reference Range Interpretation Comments AGAP (test code = AGAP) 11.4 10.0-20.0 [facility]aBvjfticYNNNYRIRWBUV5497-53-43 10:29:00 Test Item Value Reference Range Interpretation Comments Chloride Lvl (test code = Chloride Lvl) 111 95-109 [facility]aCdqnnymJYHGQRZBNCGG3248-81-44 10:29:00 Test Item Value Reference Range Interpretation Comments Sodium Lvl (test code = Sodium Lvl) 144 135-145 [facility]aUwbasyrQOCCIYDMCKRY1536-59-81 10:29:00 Test Item Value Reference Range Interpretation Comments Potassium Lvl (test code = Potassium 3.4 3.5-5.1 Lvl) [facility]aErvpwffYIKJIGFCBPNK2146-36-49 10:29:00 Test Item Value Reference Range Interpretation Comments Calcium Lvl (test code = Calcium Lvl) 7.6 8.5-10.5 [facility]aOfajnstLLVNPCNQGHGZ6741-38-27 10:29:00 Test Item Value Reference Range Interpretation Comments Glucose Lvl (test code = Glucose Lvl) 85 70-99 [facility]aOeaoajxVQESUSRWPGUK5366-79-23 10:29:00 Test Item Value Reference Range Interpretation Comments eGFR (test code = eGFR) 114 [facility]aOffwlanLFHBJQUAGUOB6101-46-53 10:29:00 Test Item Value Reference Range Interpretation Comments Creatinine Lvl (test code = Creatinine 0.54 0.50-1.40 Lvl) [facility]aKkehoxjTBFVQTKVZSWA9165-59-93 10:29:00 Test Item Value Reference Range Interpretation Comments BUN (test code = BUN) 8 7-22 [facility]aGcqapxaDSBOEMJWCUUM0777-84-55 10:29:00 Test Item Value Reference Range Interpretation Comments CO2 (test code = CO2) 25 24-32 [facility] CenterAmjctdfFLADIBYLGQ6701-02-63 10:29:00 Test Item Value Reference Range Interpretation Comments Platelet (test code = Platelet) 275 133-450 [facility] CenterCpvynebJBFCLKQSNQ6328-15-32 10:29:00 Test Item Value Reference Range Interpretation Comments RDW (test code = RDW) 17.0 11.5-14.5 [facility] CenterMapcrjnJZVZSGATKT8333-38-08 10:29:00 Test Item Value Reference Range Interpretation Comments MCHC (test code = MCHC) 32.4 32.0-36.0 [facility] CenterDmdkyxiVPMPUEPWTJ1705-96-92 10:29:00 Test Item Value Reference Range Interpretation Comments MCH (test code = MCH) 26.1 pg 27.0-31.0 [facility] CenterEsmzkrwEVESCYWWUG6353-42-30 10:29:00 Test Item Value Reference Range Interpretation Comments MCV (test code = MCV) 80.5 80.0-94.0 [facility] CenterZwervljLKUPCDGKHK4911-83-27 10:29:00 Test Item Value Reference Range Interpretation Comments Hct (test code = Hct) 27.5 42.0-54.0 [facility] CenterDhrskwsKKFCWJLAOU0598-82-77 10:29:00 Test Item Value Reference Range Interpretation Comments RBC (test code = RBC) 3.42 4.70-6.10 [facility] CenterGzqqlqaMTMBMJIKHL1972-26-64 10:29:00 Test Item Value Reference Range Interpretation Comments Hgb (test code = Hgb) 8.9 14.0-18.0 [facility] CenterAmjwvnkKRLJDMUFIS5078-13-50 10:29:00 Test Item Value Reference Range Interpretation Comments WBC (test code = WBC) 6.9 3.7-10.4 [facility] CenterGfyhlrvPQANKJTFRN1058-36-56 10:29:00 Test Item Value Reference Range Interpretation Comments MPV (test code = MPV) 8.0 7.4-10.4 [facility] CenterFwpofxgBEJCNQSXFN9363-96-91 10:29:00 Test Item Value Reference Range Interpretation Comments Monocytes # (test code 0.7 See_Comment [Aut omated message] The = Monocytes #) system which generated this result tra nsmitted reference range : <=0.8. The reference r ondina was not used to int erpret this result as normal/abnormal . [facility] CenterIesyqgsVWIAYLQESG2209-86-22 10:29:00 Test Item Value Reference Range Interpretation Comments Lymphocytes # (test code = Lymphocytes 1.6 1.0-5.5 #) [facility] CenterQgksdjjIVBUHLDCJB5349-89-33 10:29:00 Test Item Value Reference Range Interpretation Comments Eosinophils # (test code 0.3 See_Comment [A utomated message] The = Eosinophils #) system whic h generated this result tra nsmitted reference range : <=0.5. The reference r ondina was not used to int erpret this result as normal/abnormal . [facility] CenterGtcavygMDAMKKVCWE7040-41-06 10:29:00 Test Item Value Reference Range Interpretation Comments Lymphocytes (test code = Lymphocytes) 23.6 20.0-40.0 [facility] CenterYadcsbtOFRJXALKDC1961-52-87 10:29:00 Test Item Value Reference Range Interpretation Comments Monocytes (test code = Monocytes) 10.1 2.0-12.0 [facility] CenterRnkpkqhDWIDKXAVHZ7030-63-36 10:29:00 Test Item Value Reference Range Interpretation Comments Eosinophils (test code = 3.9 See_Comment [A utomated message] The Eosinophils) system which ge nerated this result tra nsmitted reference range : <=4.0. The reference r ondina was not used to int erpret this result as normal/abnormal . [facility] CenterLqbhfreHRVGSNWTPT4822-28-16 10:29:00 Test Item Value Reference Range Interpretation Comments Basophils (test code = 0.7 See_Comment [Aut omated message] The Basophils) system which ge nerated this result tra nsmitted reference range : <=1.0. The reference r ondina was not used to int erpret this result as normal/abnormal . [facility] CenterWpgitmtOBNTAKIJLX3759-75-42 10:29:00 Test Item Value Reference Range Interpretation Comments Neutrophils # (test code = Neutrophils 4.2 1.5-8.1 #) [facility] CenterGrdbmdyXNSLSFKPWL4037-74-40 10:29:00 Test Item Value Reference Range Interpretation Comments Segs (test code = Segs) 61.7 45.0-75.0 [facility]aSnliegzXATJISCZNXBO1787-26-89 10:29:00 Test Item Value Reference Range Interpretation Comments AGAP (test code = AGAP) 11.4 10.0-20.0 [facility]aNcndwqmZUISJEXPVJHR0472-74-01 10:29:00 Test Item Value Reference Range Interpretation Comments Chloride Lvl (test code = Chloride Lvl) 111 95-109 [facility]aVehsbvpUSZSZVOEVPHL7577-23-31 10:29:00 Test Item Value Reference Range Interpretation Comments Sodium Lvl (test code = Sodium Lvl) 144 135-145 [facility]aKwjhqsdNXAFPATGPOUP4920-13-25 10:29:00 Test Item Value Reference Range Interpretation Comments Potassium Lvl (test code = Potassium 3.4 3.5-5.1 Lvl) [facility]aPukmsliCEFZOBGZKFDN0097 10:29:00 Test Item Value Reference Range Interpretation Comments Calcium Lvl (test code = Calcium Lvl) 7.6 8.5-10.5 [facility]aYzqgbuzQNYEIBGNVTNT0990-06-85 10:29:00 Test Item Value Reference Range Interpretation Comments Glucose Lvl (test code = Glucose Lvl) 85 70-99 [facility]aGpugwmdHCXWVLHPVFAM5565-13-36 10:29:00 Test Item Value Reference Range Interpretation Comments eGFR (test code = eGFR) 114 [facility]penaHtuplcmBRCMMTORLPSR5553-29-10 10:29:00 Test Item Value Reference Range Interpretation Comments Creatinine Lvl (test code = Creatinine 0.54 0.50-1.40 Lvl) [facility]aYjueomlMHCLPTYNLLSG1209-84-63 10:29:00 Test Item Value Reference Range Interpretation Comments BUN (test code = BUN) 8 7-22 [facility]aXlngqppDATTMXNTPYSX7099-19-09 10:29:00 Test Item Value Reference Range Interpretation Comments CO2 (test code = CO2) 25 24-32 [facility] CenterZajbgddMIPASDKSTG6563-50-06 10:29:00 Test Item Value Reference Range Interpretation Comments Platelet (test code = Platelet) 275 133-450 [facility] CenterNzelzdySKDVBGAVVY9593-76-63 10:29:00 Test Item Value Reference Range Interpretation Comments RDW (test code = RDW) 17.0 11.5-14.5 [facility] CenterEiucholLEZBGXMYVY3334-47-48 10:29:00 Test Item Value Reference Range Interpretation Comments MCHC (test code = MCHC) 32.4 32.0-36.0 [facility] CenterCtctmzzOFQUSEJRTR4429-35-15 10:29:00 Test Item Value Reference Range Interpretation Comments MCH (test code = MCH) 26.1 pg 27.0-31.0 [facility] CenterXecmtktDKLGAPXUVR3207-32-06 10:29:00 Test Item Value Reference Range Interpretation Comments MCV (test code = MCV) 80.5 80.0-94.0 [facility] CenterHfibffcQGEYXHTFQN3501-00-34 10:29:00 Test Item Value Reference Range Interpretation Comments Hct (test code = Hct) 27.5 42.0-54.0 [facility] CenterYzotwneKYHXAPFBJB0843-45-49 10:29:00 Test Item Value Reference Range Interpretation Comments RBC (test code = RBC) 3.42 4.70-6.10 [facility] CenterXtpqvtwKGUALKLHYY5864-79-89 10:29:00 Test Item Value Reference Range Interpretation Comments Hgb (test code = Hgb) 8.9 14.0-18.0 [facility] CenterXyvlzvtGMIJZXZHPN5083-78-47 10:29:00 Test Item Value Reference Range Interpretation Comments WBC (test code = WBC) 6.9 3.7-10.4 [facility] CenterLpnjrysREPQXEOYRM8164-90-88 10:29:00 Test Item Value Reference Range Interpretation Comments MPV (test code = MPV) 8.0 7.4-10.4 [facility] CenterTzkxxqaNKKKNWJCZV9595-99-23 10:29:00 Test Item Value Reference Range Interpretation Comments Monocytes # (test code 0.7 See_Comment [Aut omated message] The = Monocytes #) system which generated this result tra nsmitted reference range : <=0.8. The reference r ondina was not used to int erpret this result as normal/abnormal . [facility] CenterHhvezzpWCFCAFQZQM7689-41-99 10:29:00 Test Item Value Reference Range Interpretation Comments Lymphocytes # (test code = Lymphocytes 1.6 1.0-5.5 #) [facility] CenterOhiztgpEFBVNPPKBJ0582-47-78 10:29:00 Test Item Value Reference Range Interpretation Comments Eosinophils # (test code 0.3 See_Comment [A utomated message] The = Eosinophils #) system whic h generated this result tra nsmitted reference range : <=0.5. The reference r ondina was not used to int erpret this result as normal/abnormal . [facility] CenterAwouttySMEMRDOWSM3796-75-98 10:29:00 Test Item Value Reference Range Interpretation Comments Lymphocytes (test code = Lymphocytes) 23.6 20.0-40.0 [facility] CenterYbrrlpjHRQRMMHITV9907-43-41 10:29:00 Test Item Value Reference Range Interpretation Comments Monocytes (test code = Monocytes) 10.1 2.0-12.0 [facility] CenterGsamsziMCNNBIKQKH7657-27-60 10:29:00 Test Item Value Reference Range Interpretation Comments Eosinophils (test code = 3.9 See_Comment [A utomated message] The Eosinophils) system which ge nerated this result tra nsmitted reference range : <=4.0. The reference r ondina was not used to int erpret this result as normal/abnormal . [facility] CenterGrcrzhdGZWUPTMLYK5498-20-73 10:29:00 Test Item Value Reference Range Interpretation Comments Basophils (test code = 0.7 See_Comment [Aut omated message] The Basophils) system which ge nerated this result tra nsmitted reference range : <=1.0. The reference r ondina was not used to int erpret this result as normal/abnormal . [facility] CenterUhgbnzaUEMLUEOPDX7695-32-25 10:29:00 Test Item Value Reference Range Interpretation Comments Neutrophils # (test code = Neutrophils 4.2 1.5-8.1 #) [facility] CenterXckcecuFMZOYFRIQB6548-43-49 10:29:00 Test Item Value Reference Range Interpretation Comments Segs (test code = Segs) 61.7 45.0-75.0 [facility]penaZpyfnfvRPFHSWRTCVGS2629-54-43 10:29:00 Test Item Value Reference Range Interpretation Comments AGAP (test code = AGAP) 11.4 10.0-20.0 [facility]penaWujefdiMIHMKAHRATWU6523-72-77 10:29:00 Test Item Value Reference Range Interpretation Comments Chloride Lvl (test code = Chloride Lvl) 111 95-109 [facility]aZkemrjqGXYTIMDLZFGY2877-78-45 10:29:00 Test Item Value Reference Range Interpretation Comments Sodium Lvl (test code = Sodium Lvl) 144 135-145 [facility]aTmqmxwjHCYSMAJFFZLK1896-04-08 10:29:00 Test Item Value Reference Range Interpretation Comments Potassium Lvl (test code = Potassium 3.4 3.5-5.1 Lvl) [facility]aUpmwazwGDMNYNDKVPPN0370-62-70 10:29:00 Test Item Value Reference Range Interpretation Comments Calcium Lvl (test code = Calcium Lvl) 7.6 8.5-10.5 [facility]aErazuwsSZSTRVRTTDEG6886-74-97 10:29:00 Test Item Value Reference Range Interpretation Comments Glucose Lvl (test code = Glucose Lvl) 85 70-99 [facility]aJrowqwzVVXLUZZJXSAF4442-27-24 10:29:00 Test Item Value Reference Range Interpretation Comments eGFR (test code = eGFR) 114 [facility]penaVnayzczISFCPCIHBYLL2950-90-57 10:29:00 Test Item Value Reference Range Interpretation Comments Creatinine Lvl (test code = Creatinine 0.54 0.50-1.40 Lvl) [facility]aAlueeecDVQKIPXMOVMT9762-28-88 10:29:00 Test Item Value Reference Range Interpretation Comments BUN (test code = BUN) 8 7-22 [facility]aTxtcuzoPVBOQRUPAMLP4893-70-97 10:29:00 Test Item Value Reference Range Interpretation Comments CO2 (test code = CO2) 25 24-32 [facility] CenterKboanguLQPMIYCWVA7722-77-39 10:29:00 Test Item Value Reference Range Interpretation Comments Platelet (test code = Platelet) 275 133-450 [facility] CenterRdloxydRKGVKNOKAZ0481-98-18 10:29:00 Test Item Value Reference Range Interpretation Comments RDW (test code = RDW) 17.0 11.5-14.5 [facility] CenterNazdaxzALNCABHWVZ3047-43-46 10:29:00 Test Item Value Reference Range Interpretation Comments MCHC (test code = MCHC) 32.4 32.0-36.0 [facility] CenterXhnbnldRFAMRWZUZN6811-33-04 10:29:00 Test Item Value Reference Range Interpretation Comments MCH (test code = MCH) 26.1 pg 27.0-31.0 [facility] CenterRouzlwbLWQTWREXNG4234-16-39 10:29:00 Test Item Value Reference Range Interpretation Comments MCV (test code = MCV) 80.5 80.0-94.0 [facility] CenterBjbxpodHTEKZSFXZO8506-69-94 10:29:00 Test Item Value Reference Range Interpretation Comments Hct (test code = Hct) 27.5 42.0-54.0 [facility] CenterYeqkharVILBSUDIYX0055-79-36 10:29:00 Test Item Value Reference Range Interpretation Comments RBC (test code = RBC) 3.42 4.70-6.10 [facility]KctmvwhYHJMWWKZLO2566-56-73 10:29:00 Test Item Value Reference Range Interpretation Comments Hgb (test code = Hgb) 8.9 14.0-18.0 [facility] CenterIhrjzakNCTUBDSKCF6690-50-26 10:29:00 Test Item Value Reference Range Interpretation Comments WBC (test code = WBC) 6.9 3.7-10.4 [facility] CenterSjdhtayXLGPYDDZWD5897-60-24 10:29:00 Test Item Value Reference Range Interpretation Comments MPV (test code = MPV) 8.0 7.4-10.4 [facility] CenterUidqhvhGSCPHVRAAM8464-73-17 10:29:00 Test Item Value Reference Range Interpretation Comments Monocytes # (test code 0.7 See_Comment [Aut omated message] The = Monocytes #) system which generated this result tra nsmitted reference range : <=0.8. The reference r ondina was not used to int erpret this result as normal/abnormal . [facility] CenterEfjvdllSLPWUZWCVH2786-50-02 10:29:00 Test Item Value Reference Range Interpretation Comments Lymphocytes # (test code = Lymphocytes 1.6 1.0-5.5 #) [facility] CenterKljwafqMMGCNQVPGM3000-36-86 10:29:00 Test Item Value Reference Range Interpretation Comments Eosinophils # (test code 0.3 See_Comment [A utomated message] The = Eosinophils #) system [facility] h generated this result tra nsmitted reference range : <=0.5. The reference r ondina was not used to int erpret this result as normal/abnormal . [facility] CenterUgfnkhlAHFIAWJTSE2305-98-00 10:29:00 Test Item Value Reference Range Interpretation Comments Lymphocytes (test code = Lymphocytes) 23.6 20.0-40.0 [facility] CenterOjrpvriTTHNXEKEFQ5241-07-86 10:29:00 Test Item Value Reference Range Interpretation Comments Monocytes (test code = Monocytes) 10.1 2.0-12.0 [facility] CenterPgbbhuzLRYSSUEJMD9918-84-38 10:29:00 Test Item Value Reference Range Interpretation Comments Eosinophils (test code = 3.9 See_Comment [A utomated message] The Eosinophils) system which ge nerated this result tra nsmitted reference range : <=4.0. The reference r ondina was not used to int erpret this result as normal/abnormal . [facility] CenterGilfbmaVQKCLRQNVP0979-39-78 10:29:00 Test Item Value Reference Range Interpretation Comments Basophils (test code = 0.7 See_Comment [Aut omated message] The Basophils) system which ge nerated this result tra nsmitted reference range : <=1.0. The reference r nodina was not used to int erpret this result as normal/abnormal . [facility] CenterKptblmsKWFXMQDQUX3269-95-97 10:29:00 Test Item Value Reference Range Interpretation Comments Neutrophils # (test code = Neutrophils 4.2 1.5-8.1 #) [facility] CenterBhrbfgzPOYDEMQBKS9195-06-50 10:29:00 Test Item Value Reference Range Interpretation Comments Segs (test code = Segs) 61.7 45.0-75.0 [facility]kolBHDTVQAPKKPM8184-97-79 10:29:00 Test Item Value Reference Range Interpretation Comments AGAP (test code = AGAP) 11.4 10.0-20.0 [facility]aNsbydhdWCZGJSWSQXCS0434-88-97 10:29:00 Test Item Value Reference Range Interpretation Comments Chloride Lvl (test code = Chloride Lvl) 111 95-109 [facility]aQuonghtUBLRXWTCIJVK7936-85-04 10:29:00 Test Item Value Reference Range Interpretation Comments Sodium Lvl (test code = Sodium Lvl) 144 135-145 [facility]aIsqvjiqGNVLWUXCNJKA4447-24-80 10:29:00 Test Item Value Reference Range Interpretation Comments Potassium Lvl (test code = Potassium 3.4 3.5-5.1 Lvl) [facility]aZgvqrekVJWDNWWOTZIB9484-59-85 10:29:00 Test Item Value Reference Range Interpretation Comments Calcium Lvl (test code = Calcium Lvl) 7.6 8.5-10.5 [facility]aHsqhtmgWIXPLABWTSRJ4919-90-20 10:29:00 Test Item Value Reference Range Interpretation Comments Glucose Lvl (test code = Glucose Lvl) 85 70-99 [facility]aPscsoemTYFGLNJJYXMI4953-68-68 10:29:00 Test Item Value Reference Range Interpretation Comments eGFR (test code = eGFR) 114 [facility]aDhgacwhCNYXXOUBPDXG9912-52-25 10:29:00 Test Item Value Reference Range Interpretation Comments Creatinine Lvl (test code = Creatinine 0.54 0.50-1.40 Lvl) [facility]aMcubzbvFJEVPPJCJYLK9690-90-30 10:29:00 Test Item Value Reference Range Interpretation Comments BUN (test code = BUN) 8 7-22 [facility]aMqjbkryFXMBHZGJDVTN1354-35-78 10:29:00 Test Item Value Reference Range Interpretation Comments CO2 (test code = CO2) 25 24-32 [facility] CenterFyzxomsFJSPKRWXXX4759-49-23 10:29:00 Test Item Value Reference Range Interpretation Comments Platelet (test code = Platelet) 275 133-450 [facility] CenterFsoazsoYEFJQBHWFS3986-90-20 10:29:00 Test Item Value Reference Range Interpretation Comments RDW (test code = RDW) 17.0 11.5-14.5 [facility] CenterSvhtbodEEAUEKLPJK0869-68-39 10:29:00 Test Item Value Reference Range Interpretation Comments MCHC (test code = MCHC) 32.4 32.0-36.0 [facility] CenterFmwlkzyYNYGBTUKRF1196-12-26 10:29:00 Test Item Value Reference Range Interpretation Comments MCH (test code = MCH) 26.1 pg 27.0-31.0 [facility] CenterYxctympPJSBCGAQVZ4150-20-67 10:29:00 Test Item Value Reference Range Interpretation Comments MCV (test code = MCV) 80.5 80.0-94.0 [facility] CenterPzqrbfwAOBLSDHFBJ0137-14-14 10:29:00 Test Item Value Reference Range Interpretation Comments Hct (test code = Hct) 27.5 42.0-54.0 [facility] CenterMbzxhheVHVGLNZWNK2060-66-76 10:29:00 Test Item Value Reference Range Interpretation Comments RBC (test code = RBC) 3.42 4.70-6.10 [facility] CenterPcybzvkJBVJQUOENC7160-62-20 10:29:00 Test Item Value Reference Range Interpretation Comments Hgb (test code = Hgb) 8.9 14.0-18.0 [facility] CenterLjddsmcZGKGSSAREH8535-74-64 10:29:00 Test Item Value Reference Range Interpretation Comments WBC (test code = WBC) 6.9 3.7-10.4 [facility] CenterXyonzpxVQCBEWAXAO9331-06-95 10:29:00 Test Item Value Reference Range Interpretation Comments MPV (test code = MPV) 8.0 7.4-10.4 [facility] CenterDhskoirSIMAILWVDG5210-35-54 10:29:00 Test Item Value Reference Range Interpretation Comments Monocytes # (test code 0.7 See_Comment [Aut omated message] The = Monocytes #) system which generated this result tra nsmitted reference range : <=0.8. The reference r ondina was not used to int erpret this result as normal/abnormal . [facility] CenterDerxakgWXDXSBLEZM4994-34-66 10:29:00 Test Item Value Reference Range Interpretation Comments Lymphocytes # (test code = Lymphocytes 1.6 1.0-5.5 #) [facility] CenterZfvyrurTJNTIJAJRH1548-26-84 10:29:00 Test Item Value Reference Range Interpretation Comments Eosinophils # (test code 0.3 See_Comment [A utomated message] The = Eosinophils #) system wh h generated this result tra nsmitted reference range : <=0.5. The reference r ondina was not used to int erpret this result as normal/abnormal . [facility] CenterLvkmsenTJGSTROGHB3846-32-51 10:29:00 Test Item Value Reference Range Interpretation Comments Lymphocytes (test code = Lymphocytes) 23.6 20.0-40.0 [facility] CenterWzflzejZPSPJAGBOK6890-62-59 10:29:00 Test Item Value Reference Range Interpretation Comments Monocytes (test code = Monocytes) 10.1 2.0-12.0 [facility] CenterHtnaffhYXGDPXZGGM2896-13-28 10:29:00 Test Item Value Reference Range Interpretation Comments Eosinophils (test code = 3.9 See_Comment [A utomated message] The Eosinophils) system which ge nerated this result tra nsmitted reference range : <=4.0. The reference r ondina was not used to int erpret this result as normal/abnormal . [facility] CenterIuratnyLBHHBJQUVR0850-15-27 10:29:00 Test Item Value Reference Range Interpretation Comments Basophils (test code = 0.7 See_Comment [Aut omated message] The Basophils) system which ge nerated this result tra nsmitted reference range : <=1.0. The reference r ondina was not used to int erpret this result as normal/abnormal . [facility] CenterWwxdfysHFTMDNPFQG8506-67-92 10:29:00 Test Item Value Reference Range Interpretation Comments Neutrophils # (test code = Neutrophils 4.2 1.5-8.1 #) [facility] CenterRdoheuvUGTQONOVHL6871-73-04 10:29:00 Test Item Value Reference Range Interpretation Comments Segs (test code = Segs) 61.7 45.0-75.0 [facility] CenterYkewakpKAFNZFVRQG4801-03-07 11:52:00 Test Item Value Reference Range Interpretation Comments Basophils # (test code 0.1 See_Comment [Aut omated message] The = Basophils #) system which generated this result tra nsmitted reference range : <=0.2. The reference r ondina was not used to int erpret this result as normal/abnormal . [facility] CenterVwozwojUUVZBOIONW9673-07-61 11:52:00 Test Item Value Reference Range Interpretation Comments Basophils # (test code 0.1 See_Comment [Aut omated message] The = Basophils #) system which generated this result tra nsmitted reference range : <=0.2. The reference r ondina was not used to int erpret this result as normal/abnormal . [facility] CenterHyrevylWIBYRXMKAU6274-82-31 11:52:00 Test Item Value Reference Range Interpretation Comments Basophils # (test code 0.1 See_Comment [Aut omated message] The = Basophils #) system which generated this result tra nsmitted reference range : <=0.2. The reference r ondina was not used to int erpret this result as normal/abnormal . [facility] CenterNelobpkLYFZBBFDIU7021-54-87 11:52:00 Test Item Value Reference Range Interpretation Comments Basophils # (test code 0.1 See_Comment [Aut omated message] The = Basophils #) system which generated this result tra nsmitted reference range : <=0.2. The reference r ondina was not used to int erpret this result as normal/abnormal . [facility]annBACTERIAL - BUJGUYMO8079-39-82 23:42:00 Test Item Value Reference Range Interpretation Comments MRSA by PCR (test Negative (02/16/18 5:42 code = MRSA by PCR) PM) [facility]BACT[facility] - [id number] 23:42:00 Test Item Value Reference Range Interpretation Comments MRSA by PCR (test Negative (02/16/18 5:42 code = MRSA by PCR) PM) [facility] CenterannBACTERIAL - IYXYCGLQ7697-57-13 23:42:00 Test Item Value Reference Range Interpretation Comments MRSA by PCR (test Negative (02/16/18 5:42 code = MRSA by PCR) PM) [facility] CenterannBACTERIAL - [id number] 23:42:00 Test Item Value Reference Range Interpretation Comments MRSA by PCR (test Negative (02/16/18 5:42 code = MRSA by PCR) PM) [facility]YsojxysMDIXTSCVCR0457-97-96 12:00:00 Test Item Value Reference Range Interpretation Comments Vanco Tr TND (test code = Vanco Tr 0530 1 TND) [facility] HospitalTijiujtOBYBNFOEPC2363-48-83 12:00:00 Test Item Value Reference Range Interpretation Comments Vanco Tr (test code = Vanco Tr) 6.7 [facility] CenterQffypxfMFKOLHLRCR6705-45-13 12:00:00 Test Item Value Reference Range Interpretation Comments Vanco Tr TND (test code = Vanco Tr 0530 1 TND) [facility] HospitalZtkrakjCVCDRKSYNX3843-24-58 12:00:00 Test Item Value Reference Range Interpretation Comments Vanco Tr (test code = Vanco Tr) 6.7 [facility] HospitalAttsudzLRFKNGQLZC5757-39-46 12:00:00 Test Item Value Reference Range Interpretation Comments Vanco Tr TND (test code = Vanco Tr 0530 1 TND) [facility] HospitalImgcicoDJTMXHHVZH8346-94-38 12:00:00 Test Item Value Reference Range Interpretation Comments Vanco Tr (test code = Vanco Tr) 6.7 [facility] HospitalJtqcxvtVXEDYFJAFQ1554-37-69 12:00:00 Test Item Value Reference Range Interpretation Comments Vanco Tr TND (test code = Vanco Tr 0530 1 TND) [facility]KzgqvteNYRXORNWZM1911-41-23 12:00:00 Test Item Value Reference Range Interpretation Comments Vanco Tr (test code = Vanco Tr) 6.7 [facility] HospitalVgmfxonPWSKRMTVEG9621-57-68 22:11:00 Test Item Value Reference Range Interpretation Comments PTT (test code = PTT) 38.4 s 22.9-35.8 [facility] HospitalOqezcrmOHUWYIRIEE3796-63-13 22:11:00 Test Item Value Reference Range Interpretation Comments PTT (test code = PTT) 38.4 s 22.9-35.8 [facility] HospitalEgrstbsQHTUNYFZGQ7359-73-11 22:11:00 Test Item Value Reference Range Interpretation Comments PTT (test code = PTT) 38.4 s 22.9-35.8 [facility] HospitalBwbaxvvPIYUKFGFKA0483-27-27 22:11:00 Test Item Value Reference Range Interpretation Comments PTT (test code = PTT) 38.4 s 22.9-35.8 [facility] HospitalCulture: Rfkzjeisk9566-69-00 22:47:00 Test Item Value Reference Range Interpretation Comments Culture: Anaerobic No Anaerobes Isolated (test code = Culture: Anaerobic) [facility] HospitalGram Stain Svbdrn9106-90-07 22:47:00 Test Item Value Reference Range Interpretation Comments Gram Stain Report Rare WBC's No Organisms (test code = Gram Seen Stain Report) [facility] Aspirate/Body Fluid/Zktthx1492-67-93 22:47:00 Test Item Value Reference Range Interpretation Comments Culture: Aspirate/Body Fluid/Tissue No Growth (test code = Culture: Aspirate/Body Fluid/Tissue) [facility] HospitalCulture: Tfmwejqvz8417-25-92 22:47:00 Test Item Value Reference Range Interpretation Comments Culture: Anaerobic No Anaerobes Isolated (test code = Culture: Anaerobic) [facility] Stain Gceuff7522-19-06 22:47:00 Test Item Value Reference Range Interpretation Comments Gram Stain Report Rare WBC's No Organisms (test code = Gram Seen Stain Report) [facility]annlture: Aspirate/Body Fluid/Quwczw5913-35-47 22:47:00 Test Item Value Reference Range Interpretation Comments Culture: Aspirate/Body Fluid/Tissue No Growth (test code = Culture: Aspirate/Body Fluid/Tissue) [facility] Xkhuuytrx4085-24-06 22:47:00 Test Item Value Reference Range Interpretation Comments Culture: Anaerobic No Anaerobes Isolated (test code = Culture: Anaerobic) [facility] Stain Xbsrzw2126-96-15 22:47:00 Test Item Value Reference Range Interpretation Comments Gram Stain Report Rare WBC's No Organisms (test code = Gram Seen Stain Report) [facility]: Aspirate/Body Fluid/Daownj3608-61-94 22:47:00 Test Item Value Reference Range Interpretation Comments Culture: Aspirate/Body Fluid/Tissue No Growth (test code = Culture: Aspirate/Body Fluid/Tissue) [facility] HospitalCulture: Bgadazrxf6502-54-06 22:47:00 Test Item Value Reference Range Interpretation Comments Culture: Anaerobic No Anaerobes Isolated (test code = Culture: Anaerobic) [facility] Stain Yvydei3708-38-46 22:47:00 Test Item Value Reference Range Interpretation Comments Gram Stain Report Rare WBC's No Organisms (test code = Gram Seen Stain Report) [facility] Aspirate/Body Fluid/Dtvmio4339-61-31 22:47:00 Test Item Value Reference Range Interpretation Comments Culture: Aspirate/Body Fluid/Tissue No Growth (test code = Culture: Aspirate/Body Fluid/Tissue) [facility]: Yqerbuanj4181-63-35 22:40:00 Test Item Value Reference Range Interpretation Comments Culture: Anaerobic No Anaerobes Isolated (test code = Culture: Anaerobic) [facility] CenterannGram Stain Sgwlvz2467-63-49 22:40:00 Test Item Value Reference Range Interpretation Comments Gram Stain Report Rare WBC's No Organisms (test code = Gram Seen Stain Report) [facility]annCulture: Aspirate/Body Fluid/Ukcegf8165-61-19 22:40:00 Test Item Value Reference Range Interpretation Comments Culture: Aspirate/Body Fluid/Tissue No Growth (test code = Culture: Aspirate/Body Fluid/Tissue) [facility] CenterannCulture: Mjzelnbou8613-29-74 22:40:00 Test Item Value Reference Range Interpretation Comments Culture: Anaerobic No Anaerobes Isolated (test code = Culture: Anaerobic) [facility] HospitalG[facility] Stain Hknrfj7028-23-42 22:40:00 Test Item Value Reference Range Interpretation Comments Gram Stain Report Rare WBC's No Organisms (test code = Gram Seen Stain Report) [facility]: Aspirate/Body Fluid/Vcfifj5276-80-50 22:40:00 Test Item Value Reference Range Interpretation Comments Culture: Aspirate/Body Fluid/Tissue No Growth (test code = Culture: Aspirate/Body Fluid/Tissue) [facility] HospitalCulture: Unveaqwur6936-38-69 22:40:00 Test Item Value Reference Range Interpretation Comments Culture: Anaerobic No Anaerobes Isolated (test code = Culture: Anaerobic) [facility] Stain Notzho9714-87-18 22:40:00 Test Item Value Reference Range Interpretation Comments Gram Stain Report Rare WBC's No Organisms (test code = Gram Seen Stain Report) [facility] HospitalCulture: Aspirate/Body Fluid/Bragmi6895-27-15 22:40:00 Test Item Value Reference Range Interpretation Comments Culture: Aspirate/Body Fluid/Tissue No Growth (test code = Culture: Aspirate/Body Fluid/Tissue) [facility]annCulture: Iiuefiwyy2428-64-31 22:40:00 Test Item Value Reference Range Interpretation Comments Culture: Anaerobic No Anaerobes Isolated (test code = Culture: Anaerobic) [facility] HospitalG[facility] Stain Ipbunz7014-24-66 22:40:00 Test Item Value Reference Range Interpretation Comments Gram Stain Report Rare WBC's No Organisms (test code = Gram Seen Stain Report) [facility] Aspirate/Body Fluid/Grnqyc5787-59-42 22:40:00 Test Item Value Reference Range Interpretation Comments Culture: Aspirate/Body Fluid/Tissue No Growth (test code = Culture: Aspirate/Body Fluid/Tissue) [facility] [employer] [id number] 09:55:00 Test Item Value Reference Range Interpretation Comments Antibody Scrn (test Negative (02/14/18 code = Antibody Scrn) 3:55 AM) [facility] [employer] [id number] 09:55:00 Test Item Value Reference Range Interpretation Comments ABO/Rh (test code = ABO/Rh) A POS [facility] [place] [id number] 09:55:00 Test Item Value Reference Range Interpretation Comments B/C Ratio (test code = B/C Ratio) 14 1 6-25 [facility] [employer] [place] [id number] 09:55:00 Test Item Value Reference Range Interpretation Comments Globulin (test code = Globulin) 5.3 2.7-4.2 [facility] [employer] [place] [id number] 09:55:00 Test Item Value Reference Range Interpretation Comments A/G Ratio (test code = A/G Ratio) 0.5 1 0.7-1.6 [facility] [place] [id number] 09:55:00 Test Item Value Reference Range Interpretation Comments Albumin Lvl (test code = Albumin Lvl) 2.8 3.5-5.0 [facility] [employer] [place] [id number] 09:55:00 Test Item Value Reference Range Interpretation Comments Alk Phos (test code = Alk Phos) 92 39-136 [facility] [employer] [place] [id number] 09:55:00 Test Item Value Reference Range Interpretation Comments ALT (test code = ALT) 21 See_Comment [Auto mated message] The system which ge nerated this result transmit garrett reference range : <=65. The reference range was not used to interpr et this result as cassie l/abnormal. [facility] [employer] [place] [id number] 09:55:00 Test Item Value Reference Range Interpretation Comments AST (test code = AST) 15 See_Comment [Auto mated message] The system which ge nerated this result transmit garrett reference range : <=37. The reference range was not used to interpr et this result as casise l/abnormal. [facility] [place] [id number] 09:55:00 Test Item Value Reference Range Interpretation Comments Total Protein (test code = Total 8.1 6.4-8.4 Protein) [facility] [employer] [place] [id number] 09:55:00 Test Item Value Reference Range Interpretation Comments Bili Total (test code = Bili Total) 0.2 0.2-1.3 [facility] CenterPbkperlQACAFRLGYR1561-80-31 09:55:00 Test Item Value Reference Range Interpretation Comments PTT (test code = PTT) 35.4 s 22.9-35.8 [facility] BhydjyqTRABKUNZJZ8372-77-60 09:55:00 Test Item Value Reference Range Interpretation Comments PT (test code = PT) 13.4 s 12.0-14.7 [facility] DoavasaHVWXFIPTXT1603-67-61 09:55:00 Test Item Value Reference Range Interpretation Comments INR (test code = INR) 1.04 1 0.85-1.17 [facility] [employer] [id number] 09:55:00 Test Item Value Reference Range Interpretation Comments Antibody Scrn (test Negative (02/14/18 code = Antibody Scrn) 3:55 AM) [facility] [employer] [id number] 09:55:00 Test Item Value Reference Range Interpretation Comments ABO/Rh (test code = ABO/Rh) A POS [facility] [employer] [place] [id number] 09:55:00 Test Item Value Reference Range Interpretation Comments B/C Ratio (test code = B/C Ratio) 14 1 6-25 [facility] [employer] [place] [id number] 09:55:00 Test Item Value Reference Range Interpretation Comments Globulin (test code = Globulin) 5.3 2.7-4.2 [facility] [employer] [place] [id number] 09:55:00 Test Item Value Reference Range Interpretation Comments A/G Ratio (test code = A/G Ratio) 0.5 1 0.7-1.6 [facility] [place] [id number] 09:55:00 Test Item Value Reference Range Interpretation Comments Albumin Lvl (test code = Albumin Lvl) 2.8 3.5-5.0 [facility] [place] [id number] 09:55:00 Test Item Value Reference Range Interpretation Comments Alk Phos (test code = Alk Phos) 92 39-136 [facility] [employer] [place] [id number] 09:55:00 Test Item Value Reference Range Interpretation Comments ALT (test code = ALT) 21 See_Comment [Auto mated message] The system which ge nerated this result transmit garrett reference range : <=65. The reference range was not used to interpr et this result as cassie l/abnormal. [facility] [employer] [place] [id number] 09:55:00 Test Item Value Reference Range Interpretation Comments AST (test code = AST) 15 See_Comment [Auto mated message] The system which ge nerated this result transmit garrett reference range : <=37. The reference range was not used to interpr et this result as cassie l/abnormal. [facility] [employer] [place] [id number] 09:55:00 Test Item Value Reference Range Interpretation Comments Total Protein (test code = Total 8.1 6.4-8.4 Protein) [facility] [employer] [place] [id number] 09:55:00 Test Item Value Reference Range Interpretation Comments Bili Total (test code = Bili Total) 0.2 0.2-1.3 [facility] CenterLxsibphQPEJAQNIPB6337-00-18 09:55:00 Test Item Value Reference Range Interpretation Comments PTT (test code = PTT) 35.4 s 22.9-35.8 [facility] CenterZugkqmuRFRPVYLQCH7033-53-82 09:55:00 Test Item Value Reference Range Interpretation Comments PT (test code = PT) 13.4 s 12.0-14.7 [facility] CenterIajuhmfEVPDHJFEPP9096-54-51 09:55:00 Test Item Value Reference Range Interpretation Comments INR (test code = INR) 1.04 1 0.85-1.17 [facility] [employer] [id number] 09:55:00 Test Item Value Reference Range Interpretation Comments Antibody Scrn (test Negative (02/14/18 code = Antibody Scrn) 3:55 AM) [facility] [employer] [id number] 09:55:00 Test Item Value Reference Range Interpretation Comments ABO/Rh (test code = ABO/Rh) A POS [facility] [employer] [place] [id number] 09:55:00 Test Item Value Reference Range Interpretation Comments B/C Ratio (test code = B/C Ratio) 14 1 6-25 [facility] [employer] [place] [id number] 09:55:00 Test Item Value Reference Range Interpretation Comments Globulin (test code = Globulin) 5.3 2.7-4.2 [facility]2018-12-13 09:55:00 Test Item Value Reference Range Interpretation Comments A/G Ratio (test code = A/G Ratio) 0.5 1 0.7-1.6 [facility]2018-12-13 09:55:00 Test Item Value Reference Range Interpretation Comments Albumin Lvl (test code = Albumin Lvl) 2.8 3.5-5.0 [facility]2018-12-13 09:55:00 Test Item Value Reference Range Interpretation Comments Alk Phos (test code = Alk Phos) 92 39-136 [facility]2018-12-13 09:55:00 Test Item Value Reference Range Interpretation Comments ALT (test code = ALT) 21 See_Comment [Auto mated message] The system which ge nerated this result transmit garrett reference range : <=65. The reference range was not used to interpr et this result as cassie l/abnormal. [facility]2018-12-13 09:55:00 Test Item Value Reference Range Interpretation Comments AST (test code = AST) 15 See_Comment [Auto mated message] The system which ge nerated this result transmit garrett reference range : <=37. The reference range was not used to interpr et this result as cassie l/abnormal. [facility]2018-12-13 09:55:00 Test Item Value Reference Range Interpretation Comments Total Protein (test code = Total 8.1 6.4-8.4 Protein) [facility]2018-12-13 09:55:00 Test Item Value Reference Range Interpretation Comments Bili Total (test code = Bili Total) 0.2 0.2-1.3 [id number] 09:55:00 Test Item Value Reference Range Interpretation Comments PTT (test code = PTT) 35.4 s 22.9-35.8 [facility] [id number] 09:55:00 Test Item Value Reference Range Interpretation Comments PT (test code = PT) 13.4 s 12.0-14.7 [facility] [id number] 09:55:00 Test Item Value Reference Range Interpretation Comments INR (test code = INR) 1.04 1 0.85-1.17 [facility] [facility] [place] [id number] 09:55:00 Test Item Value Reference Range Interpretation Comments Antibody Scrn (test Negative (02/14/18 code = Antibody Scrn) 3:55 AM) [facility] [employer] [id number] 09:55:00 Test Item Value Reference Range Interpretation Comments ABO/Rh (test code = ABO/Rh) A POS [facility] [place] [id number] 09:55:00 Test Item Value Reference Range Interpretation Comments B/C Ratio (test code = B/C Ratio) 14 1 6-25 [facility] [place] [id number] 09:55:00 Test Item Value Reference Range Interpretation Comments Globulin (test code = Globulin) 5.3 2.7-4.2 [facility] [place] [id number] 09:55:00 Test Item Value Reference Range Interpretation Comments A/G Ratio (test code = A/G Ratio) 0.5 1 0.7-1.6 [facility] [place] [id number] 09:55:00 Test Item Value Reference Range Interpretation Comments Albumin Lvl (test code = Albumin Lvl) 2.8 3.5-5.0 [facility] [place] [id number] 09:55:00 Test Item Value Reference Range Interpretation Comments Alk Phos (test code = Alk Phos) 92 39-136 [facility] [place] [id number] 09:55:00 Test Item Value Reference Range Interpretation Comments ALT (test code = ALT) 21 See_Comment [Auto mated message] The system which ge nerated this result transmit garrett reference range : <=65. The reference range was not used to interpr et this result as cassie l/abnormal. [facility] [place] [id number] 09:55:00 Test Item Value Reference Range Interpretation Comments AST (test code = AST) 15 See_Comment [Auto mated message] The system which ge nerated this result transmit garrett reference range : <=37. The reference range was not used to interpr et this result as cassie l/abnormal. [facility] [place] [id number] 09:55:00 Test Item Value Reference Range Interpretation Comments Total Protein (test code = Total 8.1 6.4-8.4 Protein) [facility] [place] [id number] 09:55:00 Test Item Value Reference Range Interpretation Comments Bili Total (test code = Bili Total) 0.2 0.2-1.3 [facility] [id number] 09:55:00 Test Item Value Reference Range Interpretation Comments PTT (test code = PTT) 35.4 s 22.9-35.8 [place] [id number] 09:55:00 Test Item Value Reference Range Interpretation Comments PT (test code = PT) 13.4 s 12.0-14.7 [facility] CenterPikxjpeDKJYKVMGZL4880-07-93 09:55:00 Test Item Value Reference Range Interpretation Comments INR (test code = INR) 1.04 1 0.85-1.17 [facility]2018-12-13 03:06:00 Test Item Value Reference Range Interpretation Comments Lactic Acid Lvl (test code = Lactic 1.3 0.5-2.2 Acid Lvl) [facility] [id number] 03:06:00 Test Item Value Reference Range Interpretation Comments Sed Rate (test code = 60 See_Comment [Auto mated message] The Sed Rate) system which ge nerated this result transmit garrett reference range : <=15. The reference range was not used to interpr et this result as cassie l/abnormal. [facility]2018-12-13 03:06:00 Test Item Value Reference Range Interpretation Comments Lactic Acid Lvl (test code = Lactic 1.3 0.5-2.2 Acid Lvl) [facility] [id number] 03:06:00 Test Item Value Reference Range Interpretation Comments Sed Rate (test code = 60 See_Comment [Auto mated message] The Sed Rate) system which ge nerated this result transmit garrett reference range : <=15. The reference range was not used to interpr et this result as cassie l/abnormal. [facility]2018-12-13 03:06:00 Test Item Value Reference Range Interpretation Comments Lactic Acid Lvl (test code = Lactic 1.3 0.5-2.2 Acid Lvl) [facility] [id number] 03:06:00 Test Item Value Reference Range Interpretation Comments Sed Rate (test code = 60 See_Comment [Auto mated message] The Sed Rate) system which ge nerated this result transmit garrett reference range : <=15. The reference range was not used to interpr et this result as cassie l/abnormal. [facility] [id number] 03:06:00 Test Item Value Reference Range Interpretation Comments Lactic Acid Lvl (test code = Lactic 1.3 0.5-2.2 Acid Lvl) [facility] [id number] 03:06:00 Test Item Value Reference Range Interpretation Comments Sed Rate (test code = 60 See_Comment [Auto mated message] The Sed Rate) system which ge nerated this result transmit garrett reference range : <=15. The reference range was not used to interpr et this result as cassie l/abnormal. [facility] BANK [id number] 01:24:00 Test Item Value Reference Range Interpretation Comments RBC product (test code Product available = RBC product) 4(02/13/18 7:24 PM) [facility] BANK [id number] 01:24:00 Test Item Value Reference Range Interpretation Comments RBC product (test code Product available = RBC product) 4(02/13/18 7:24 PM) [facility] BANK [id number] 01:24:00 Test Item Value Reference Range Interpretation Comments RBC product (test code Product available = RBC product) 4(02/13/18 7:24 PM) [facility] BANK [id number] 01:24:00 Test Item Value Reference Range Interpretation Comments RBC product (test code Product available = RBC product) 4(02/13/18 7:24 PM) [facility] AND [id number] 01:00:00 Test Item Value Reference Range Interpretation Comments UA Hyal Cast (test 4 See_Comment [Automat ed message] The code = UA Hyal Cast) system which generated this result transmit garrett reference range : <=2. The reference range was not used to interpr et this result as cassie l/abnormal. [facility] [id number] 01:00:00 Test Item Value Reference Range Interpretation Comments UA Mucus (test code = UA Mucus) Many /LPF [facility] AND [id number] 01:00:00 Test Item Value Reference Range Interpretation Comments UA WBC (test code = 1 See_Comment [Automa garrett message] The UA WBC) system which ge nerated this result transmit garrett reference range : <=5. The reference range was not used to interpr et this result as cassie l/abnormal. [facility] AND [id number] 01:00:00 Test Item Value Reference Range Interpretation Comments UA Protein (test code Negative (02/13/18 7:00 = UA Protein) PM) [facility] AND [id number] 01:00:00 Test Item Value Reference Range Interpretation Comments UA Spec Grav (test code = UA Spec 1.013 1 Grav) [facility] AND [id number] 01:00:00 Test Item Value Reference Range Interpretation Comments UA pH (test code = UA pH) 6.0 1 5.0-8.0 [facility] AND [id number] 01:00:00 Test Item Value Reference Range Interpretation Comments UA Nitrite (test code Negative (02/13/18 7:00 = UA Nitrite) PM) [facility] AND [id number] 01:00:00 Test Item Value Reference Range Interpretation Comments UA Blood (test code = Negative (02/13/18 7:00 UA Blood) PM) [facility] AND [id number] 01:00:00 Test Item Value Reference Range Interpretation Comments UA Bili (test code = Negative *NA*(02/13/18 UA Bili) 7:00 PM) [facility] AND [id number] 01:00:00 Test Item Value Reference Range Interpretation Comments UA Ketones (test code = UA Ketones) Negative [facility] AND [id number] 01:00:00 Test Item Value Reference Range Interpretation Comments UA Glucose (test code Negative *NA*(02/13/18 = UA Glucose) 7:00 PM) [facility] AND [id number] 01:00:00 Test Item Value Reference Range Interpretation Comments UA Sq Epi (test code = UA Sq Occasional /LPF Epi) [facility] AND [id number] 01:00:00 Test Item Value Reference Range Interpretation Comments UA Leuk Est (test Negative (02/13/18 7:00 code = UA Leuk Est) PM) [facility] AND [id number] 01:00:00 Test Item Value Reference Range Interpretation Comments UA Urobilinogen (test code = UA <=1.0 mg/dL 0.1-1.0 Urobilinogen) [facility] AND [id number] 01:00:00 Test Item Value Reference Range Interpretation Comments UA Color (test code = Yellow *NA*(02/13/18 UA Color) 7:00 PM) [facility] AND [id number] 01:00:00 Test Item Value Reference Range Interpretation Comments UA Turbidity (test code = Clear (02/13/18 7:00 UA Turbidity) PM) [facility] AND [id number] 01:00:00 Test Item Value Reference Range Interpretation Comments UA Hyal Cast (test 4 See_Comment [Automat ed message] The code = UA Hyal Cast) system which generated this result transmit garrett reference range : <=2. The reference range was not used to interpr et this result as cassie l/abnormal. [facility] AND [id number] 01:00:00 Test Item Value Reference Range Interpretation Comments UA Mucus (test code = UA Mucus) Many /LPF [facility] AND [id number] 01:00:00 Test Item Value Reference Range Interpretation Comments UA WBC (test code = 1 See_Comment [Automa garrett message] The UA WBC) system which ge nerated this result transmit garrett reference range : <=5. The reference range was not used to interpr et this result as cassie l/abnormal. [facility] AND [id number] 01:00:00 Test Item Value Reference Range Interpretation Comments UA Protein (test code Negative (02/13/18 7:00 = UA Protein) PM) [facility] AND [id number] 01:00:00 Test Item Value Reference Range Interpretation Comments UA Spec Grav (test code = UA Spec 1.013 1 Grav) [facility] AND [id number] 01:00:00 Test Item Value Reference Range Interpretation Comments UA pH (test code = UA pH) 6.0 1 5.0-8.0 [facility] AND [id number] 01:00:00 Test Item Value Reference Range Interpretation Comments UA Nitrite (test code Negative (02/13/18 7:00 = UA Nitrite) PM) [facility] AND [id number] 01:00:00 Test Item Value Reference Range Interpretation Comments UA Blood (test code = Negative (02/13/18 7:00 UA Blood) PM) [facility] AND [id number] 01:00:00 Test Item Value Reference Range Interpretation Comments UA Bili (test code = Negative *NA*(02/13/18 UA Bili) 7:00 PM) [facility] AND [id number] 01:00:00 Test Item Value Reference Range Interpretation Comments UA Ketones (test code = UA Ketones) Negative [facility] AND [id number] 01:00:00 Test Item Value Reference Range Interpretation Comments UA Glucose (test code Negative *NA*(02/13/18 = UA Glucose) 7:00 PM) [facility] AND [id number] 01:00:00 Test Item Value Reference Range Interpretation Comments UA Sq Epi (test code = UA Sq Occasional /LPF Epi) [facility] AND [id number] 01:00:00 Test Item Value Reference Range Interpretation Comments UA Leuk Est (test Negative (02/13/18 7:00 code = UA Leuk Est) PM) [facility] AND [id number] 01:00:00 Test Item Value Reference Range Interpretation Comments UA Urobilinogen (test code = UA <=1.0 mg/dL 0.1-1.0 Urobilinogen) [facility] AND [id number] 01:00:00 Test Item Value Reference Range Interpretation Comments UA Color (test code = Yellow *NA*(02/13/18 UA Color) 7:00 PM) [facility] AND [id number] 01:00:00 Test Item Value Reference Range Interpretation Comments UA Turbidity (test code = Clear (02/13/18 7:00 UA Turbidity) PM) [facility] AND [id number] 01:00:00 Test Item Value Reference Range Interpretation Comments UA Hyal Cast (test 4 See_Comment [Automat ed message] The code = UA Hyal Cast) system which generated this result transmit garrett reference range : <=2. The reference range was not used to interpr et this result as cassie l/abnormal. [facility] AND [id number] 01:00:00 Test Item Value Reference Range Interpretation Comments UA Mucus (test code = UA Mucus) Many /LPF [facility] AND [id number] 01:00:00 Test Item Value Reference Range Interpretation Comments UA WBC (test code = 1 See_Comment [Automa garrett message] The UA WBC) system which ge nerated this result transmit garrett reference range : <=5. The reference range was not used to interpr et this result as cassie l/abnormal. [facility] AND [id number] 01:00:00 Test Item Value Reference Range Interpretation Comments UA Protein (test code Negative (02/13/18 7:00 = UA Protein) PM) [facility] AND [id number] 01:00:00 Test Item Value Reference Range Interpretation Comments UA Spec Grav (test code = UA Spec 1.013 1 Grav) [facility] AND [id number] 01:00:00 Test Item Value Reference Range Interpretation Comments UA pH (test code = UA pH) 6.0 1 5.0-8.0 [facility] AND [id number] 01:00:00 Test Item Value Reference Range Interpretation Comments UA Nitrite (test code Negative (02/13/18 7:00 = UA Nitrite) PM) [facility] AND [id number] 01:00:00 Test Item Value Reference Range Interpretation Comments UA Blood (test code = Negative (02/13/18 7:00 UA Blood) PM) [facility] AND [id number] 01:00:00 Test Item Value Reference Range Interpretation Comments UA Bili (test code = Negative *NA*(02/13/18 UA Bili) 7:00 PM) [facility] AND [id number] 01:00:00 Test Item Value Reference Range Interpretation Comments UA Ketones (test code = UA Ketones) Negative [facility] AND [id number] 01:00:00 Test Item Value Reference Range Interpretation Comments UA Glucose (test code Negative *NA*(02/13/18 = UA Glucose) 7:00 PM) [facility] AND [id number] 01:00:00 Test Item Value Reference Range Interpretation Comments UA Sq Epi (test code = UA Sq Occasional /LPF Epi) [facility] AND [id number] 01:00:00 Test Item Value Reference Range Interpretation Comments UA Leuk Est (test Negative (02/13/18 7:00 code = UA Leuk Est) PM) [facility] AND [id number] 01:00:00 Test Item Value Reference Range Interpretation Comments UA Urobilinogen (test code = UA <=1.0 mg/dL 0.1-1.0 Urobilinogen) [facility] AND [id number] 01:00:00 Test Item Value Reference Range Interpretation Comments UA Color (test code = Yellow *NA*(02/13/18 UA Color) 7:00 PM) [facility] AND [id number] 01:00:00 Test Item Value Reference Range Interpretation Comments UA Turbidity (test code = Clear (02/13/18 7:00 UA Turbidity) PM) [facility] AND [id number] 01:00:00 Test Item Value Reference Range Interpretation Comments UA Hyal Cast (test 4 See_Comment [Automat ed message] The code = UA Hyal Cast) system which generated this result transmit garrett reference range : <=2. The reference range was not used to interpr et this result as cassie l/abnormal. [facility] AND [id number] 01:00:00 Test Item Value Reference Range Interpretation Comments UA Mucus (test code = UA Mucus) Many /LPF [facility] AND [id number] 01:00:00 Test Item Value Reference Range Interpretation Comments UA WBC (test code = 1 See_Comment [Automa garrett message] The UA WBC) system which ge nerated this result transmit garrett reference range : <=5. The reference range was not used to interpr et this result as cassie l/abnormal. [facility] AND [id number] 01:00:00 Test Item Value Reference Range Interpretation Comments UA Protein (test code Negative (02/13/18 7:00 = UA Protein) PM) [facility] AND [id number] 01:00:00 Test Item Value Reference Range Interpretation Comments UA Spec Grav (test code = UA Spec 1.013 1 Grav) [facility] AND [id number] 01:00:00 Test Item Value Reference Range Interpretation Comments UA pH (test code = UA pH) 6.0 1 5.0-8.0 [facility] AND [id number] 01:00:00 Test Item Value Reference Range Interpretation Comments UA Nitrite (test code Negative (02/13/18 7:00 = [facility]A Nitrite) PM) [facility] [id number] 01:00:00 Test Item Value Reference Range Interpretation Comments UA Blood (test code = Negative (02/13/18 7:00 UA Blood) PM) [facility] [id number] 01:00:00 Test Item Value Reference Range Interpretation Comments UA Bili (test code = Negative *NA*(02/13/18 UA Bili) 7:00 PM) [facility] [id number] 01:00:00 Test Item Value Reference Range Interpretation Comments UA Ketones (test code = UA Ketones) Negative [facility] [id number] 01:00:00 Test Item Value Reference Range Interpretation Comments UA Glucose (test code Negative *NA*(02/13/18 = UA Glucose) 7:00 PM) [facility] [id number] 01:00:00 Test Item Value Reference Range Interpretation Comments UA Sq Epi (test code = UA Sq Occasional /LPF Epi) [facility] AND [id number] 01:00:00 Test Item Value Reference Range Interpretation Comments UA Leuk Est (test Negative (02/13/18 7:00 code = UA Leuk Est) PM) [facility] AND [id number] 01:00:00 Test Item Value Reference Range Interpretation Comments UA Urobilinogen (test code = UA <=1.0 mg/dL 0.1-1.0 Urobilinogen) [facility] [id number] 01:00:00 Test Item Value Reference Range Interpretation Comments UA Color (test code = Yellow *NA*(02/13/18 UA Color) 7:00 PM) [facility] [id number] 01:00:00 Test Item Value Reference Range Interpretation Comments UA Turbidity (test code = Clear (02/13/18 7:00 UA Turbidity) PM) [facility] [id number] 22:30:00 Test Item Value Reference Range Interpretation Comments Total CK (test code = Total CK) 26 -191 [facility]ann[facility] [id number] 22:30:00 Test Item Value Reference Range Interpretation Comments BNP (test code = BNP) 81 [facility] CenterQuuCARTrifactaAC [id number] 22:30:00 Test Item Value Reference Range Interpretation Comments Troponin-I (test code no gt See_Comment [Auto mated message] The = Troponin-I) system which g enerated this result transmit garrett reference range : <=0.40. The reference r ondina was not used to interpr et this result as cassie l/abnormal. [facility] [place]2018-12-12 22:30:00 Test Item Value Reference Range Interpretation Comments Lactic Acid Lvl (test code = Lactic 2.1 0.5-2.2 Acid Lvl) [facility] [place] [place] [id number] 22:30:00 Test Item Value Reference Range Interpretation Comments B/C Ratio (test code = B/C Ratio) 10 1 6-25 [facility] [id number] 22:30:00 Test Item Value Reference Range Interpretation Comments Globulin (test code = Globulin) 4.7 2.7-4.2 [facility] [place] [id number] 22:30:00 Test Item Value Reference Range Interpretation Comments A/G Ratio (test code = A/G Ratio) 0.6 1 0.7-1.6 [facility] [place] [place] [id number] 22:30:00 Test Item Value Reference Range Interpretation Comments Total Protein (test code = Total 7.6 6.4-8.4 Protein) [facility] [place] [id number] 22:30:00 Test Item Value Reference Range Interpretation Comments Bili Total (test code = Bili Total) 0.4 0.2-1.3 [facility] [place] [place] [id number] 22:30:00 Test Item Value Reference Range Interpretation Comments AST (test code = AST) 13 See_Comment [Auto mated message] The system which ge nerated this result transmit garrett reference range : <=37. The reference range was not used to interpr et this result as cassie l/abnormal. [facility] [place]2018-12-12 22:30:00 Test Item Value Reference Range Interpretation Comments Alk Phos (test code = Alk Phos) 95 39-136 [facility] [place]2018-12-12 22:30:00 Test Item Value Reference Range Interpretation Comments ALT (test code = ALT) 18 See_Comment [Auto mated message] The system which ge nerated this result transmit garrett reference range : <=65. The reference range was not used to interpr et this result as cassie l/abnormal. [facility] [place] [id number] 22:30:00 Test Item Value Reference Range Interpretation Comments Albumin Lvl (test code = Albumin Lvl) 2.9 3.5-5.0 [facility] [id number] 22:30:00 Test Item Value Reference Range Interpretation Comments D-Dimer (test code = D-Dimer) 0.55 [facility] [id number] 22:30:00 Test Item Value Reference Range Interpretation Comments C-REACTIVE PROTEIN (test code = 48.5 C-REACTIVE PROTEIN) [facility] C[id number] 22:30:00 Test Item Value Reference Range Interpretation Comments Total CK (test code = Total CK) 26 12-191 [facility] CenterWeesh2018-12-12 22:30:00 Test Item Value Reference Range Interpretation Comments BNP (test code = BNP) 81 [facility] CenterWeesh2018-12-12 22:30:00 Test Item Value Reference Range Interpretation Comments Troponin-I (test code no gt See_Comment [Auto mated message] The = Troponin-I) system which g enerated this result transmit garrett reference range : <=0.40. The reference r ondina was not used to interpr et this result as cassie l/abnormal. [facility] [place]2018-12-12 22:30:00 Test Item Value Reference Range Interpretation Comments Lactic Acid Lvl (test code = Lactic 2.1 0.5-2.2 Acid Lvl) [facility] [place]2018-12-12 22:30:00 Test Item Value Reference Range Interpretation Comments B/C Ratio (test code = B/C Ratio) 10 1 6-25 [facility] [place]2018-12-12 22:30:00 Test Item Value Reference Range Interpretation Comments Globulin (test code = Globulin) 4.7 2.7-4.2 [facility] [place] [place] [id number] 22:30:00 Test Item Value Reference Range Interpretation Comments A/G Ratio (test code = A/G Ratio) 0.6 1 0.7-1.6 [facility]2018-12-12 22:30:00 Test Item Value Reference Range Interpretation Comments Total Protein (test code = Total 7.6 6.4-8.4 Protein) [facility]2018-12-12 22:30:00 Test Item Value Reference Range Interpretation Comments Bili Total (test code = Bili Total) 0.4 0.2-1.3 [facility]2018-12-12 22:30:00 Test Item Value Reference Range Interpretation Comments AST (test code = AST) 13 See_Comment [Auto mated message] The system which ge nerated this result transmit garrett reference range : <=37. The reference range was not used to interpr et this result as cassie l/abnormal. [facility]2018-12-12 22:30:00 Test Item Value Reference Range Interpretation Comments Alk Phos (test code = Alk Phos) 95 39-136 [facility]2018-12-12 22:30:00 Test Item Value Reference Range Interpretation Comments ALT (test code = ALT) 18 See_Comment [Auto mated message] The system which ge nerated this result transmit garrett reference range : <=65. The reference range was not used to interpr et this result as cassie l/abnormal. [facility]2018-12-12 22:30:00 Test Item Value Reference Range Interpretation Comments Albumin Lvl (test code = Albumin Lvl) 2.9 3.5-5.0 [id number] 22:30:00 Test Item Value Reference Range Interpretation Comments D-Dimer (test code = D-Dimer) 0.55 [facility] Hos[id number] 22:30:00 Test Item Value Reference Range Interpretation Comments C-REACTIVE PROTEIN (test code = 48.5 C-REACTIVE PROTEIN) [facility] [id number] 22:30:00 Test Item Value Reference Range Interpretation Comments Total CK (test code = Total CK) 26 12-191 [facility] [id number] 22:30:00 Test Item Value Reference Range Interpretation Comments BNP (test code = BNP) 81 [facility] [id number] 22:30:00 Test Item Value Reference Range Interpretation Comments Troponin-I (test code no gt See_Comment [Auto mated message] The = Troponin-I) system which g enerated this result transmit garrett reference range : <=0.40. The reference r ondina was not used to interpr et this result as cassie l/abnormal. [address]12-12 22:30:00 Test Item Value Reference Range Interpretation Comments Lactic Acid Lvl (test code = Lactic 2.1 0.5-2.2 Acid Lvl) [place] [id number] 22:30:00 Test Item Value Reference Range Interpretation Comments B/C Ratio (test code = B/C Ratio) 10 1 6-25 [place] [address]-12-12 22:30:00 Test Item Value Reference Range Interpretation Comments Globulin (test code = Globulin) 4.7 2.7-4.2 [place] [id number] 22:30:00 Test Item Value Reference Range Interpretation Comments A/G Ratio (test code = A/G Ratio) 0.6 1 0.7-1.[address]12-12 22:30:00 Test Item Value Reference Range Interpretation Comments Total Protein (test code = Total 7.6 6.4-8.4 Protein) [place] 751748-12-12 22:30:00 Test Item Value Reference Range Interpretation Comments Bili Total (test code = Bili Total) 0.4 0.2-1.[address]12-12 22:30:00 Test Item Value Reference Range Interpretation Comments AST (test code = AST) 13 See_Comment [Auto mated message] The system which ge nerated this result transmit garrett reference range : <=37. The reference range was not used to interpr et this result as cassie l/abnormal. [place] 751748-12-12 22:30:00 Test Item Value Reference Range Interpretation Comments Alk Phos (test code = Alk Phos) 95 39-136 [place] [address]-12-12 22:30:00 Test Item Value Reference Range Interpretation Comments ALT (test code = ALT) 18 See_Comment [Auto mated message] The system which ge nerated this result transmit garrett reference range : <=65. The reference range was not used to interpr et this result as cassie l/abnormal. [facility] [place] [id number] 22:30:00 Test Item Value Reference Range Interpretation Comments Albumin Lvl (test code = Albumin Lvl) 2.9 3.5-5.0 [facility] HospitalYipjhpjDVATRSBOIG9810-46-81 22:30:00 Test Item Value Reference Range Interpretation Comments D-Dimer (test code = D-Dimer) 0.55 [facility]CqdifseMYJOGNVWFE1073-36-10 22:30:00 Test Item Value Reference Range Interpretation Comments C-REACTIVE PROTEIN (test code = 48.5 C-REACTIVE PROTEIN) [facility] CenterannCARTrifactaAC [id number] 22:30:00 Test Item Value Reference Range Interpretation Comments Total CK (test code = Total CK) 26 12-191 [facility] HospitalBloom StudioSOUTHERN [facility] [id number] 22:30:00 Test Item Value Reference Range Interpretation Comments BNP (test code = BNP) 81 [facility] [id number] 22:30:00 Test Item Value Reference Range Interpretation Comments Troponin-I (test code no gt See_Comment [Auto mated message] The = Troponin-I) system which g enerated this result transmit garrett reference range : <=0.40. The reference r ondina was not used to interpr et this result as cassie l/abnormal. [facility] [place] [id number] 22:30:00 Test Item Value Reference Range Interpretation Comments Lactic Acid Lvl (test code = Lactic 2.1 0.5-2.2 Acid Lvl) [facility] Center[facility] [id number] 22:30:00 Test Item Value Reference Range Interpretation Comments B/C Ratio (test code = B/C Ratio) 10 1 6-25 [facility] Center[facility] [id number] 22:30:00 Test Item Value Reference Range Interpretation Comments Globulin (test code = Globulin) 4.7 2.7-4.2 [facility] [place] [id number] 22:30:00 Test Item Value Reference Range Interpretation Comments A/G Ratio (test code = A/G Ratio) 0.6 1 0.7-1.6 [facility] Center[facility] [id number] 22:30:00 Test Item Value Reference Range Interpretation Comments Total Protein (test code = Total 7.6 6.4-8.4 Protein) [facility]2018-12-12 22:30:00 Test Item Value Reference Range Interpretation Comments Bili Total (test code = Bili Total) 0.4 0.2-1.3 [facility]2018-12-12 22:30:00 Test Item Value Reference Range Interpretation Comments AST (test code = AST) 13 See_Comment [Auto mated message] The system which ge nerated this result transmit garrett reference range : <=37. The reference range was not used to interpr et this result as cassie l/abnormal. [facility]2018-12-12 22:30:00 Test Item Value Reference Range Interpretation Comments Alk Phos (test code = Alk Phos) 95 39-136 [facility]2018-12-12 22:30:00 Test Item Value Reference Range Interpretation Comments ALT (test code = ALT) 18 See_Comment [Auto mated message] The system which ge nerated this result transmit garrett reference range : <=65. The reference range was not used to interpr et this result as cassie l/abnormal. [facility]2018-12-12 22:30:00 Test Item Value Reference Range Interpretation Comments Albumin Lvl (test code = Albumin Lvl) 2.9 3.5-5.0 [facility] H[id number] 22:30:00 Test Item Value Reference Range Interpretation Comments D-Dimer (test code = D-Dimer) 0.55 [facility] HospitalQlyeevvWCHEJJOEPQ3518-01-54 22:30:00 Test Item Value Reference Range Interpretation Comments C-REACTIVE PROTEIN (test code = 48.5 C-REACTIVE PROTEIN) [facility] Notes Date/Time Note Provider Source 2022-06-25 [facility] 11:01:00-00:00 [facility] ([facility]) Cardiology Progress Note REPORT#:[id number] REPORT STATUS: Signed DATE:06/25/22 TIME:110 PATIENT: PATITO LUNA UNIT #: [id number] ROOM/BED: 306-1 : 57 AGE: 66 SEX: [...] 95 06/24 2100 82 129/58 84 93 06/24 2000 36.4 84 15 104/52 69 96 06/25 [...] extremity: LE assessment: edema, abnormal peripheral pulse Neuro/STORE CUSTODIAN: alert, oriented X 3, normal speech, n o motor deficits Diagnosis, Assessment Plan Consultants: cardiology Free Text DxA P Notes Free Text DxA P Notes: ASSESSMENT: Acute STEMI - inferior distribution - s/p succes sful primary PCI with PTCA of wiyot RCA and DEStenting of the SVG to the RPDA Acute on chronic systolic and diastolic congesti ve heart failure - HFrEF 45% Coronary atherosclerotic disease - s/p CABG x 4 in 2018 Ischemic cardiomyopathy Metabolic syndrome with HHD dyslipdemia insulin resistance PLAN: Otimize cardiac medical management s/p successfu l primary PCI with PTCA of wiyot RCA and DEStenting of the SVG to the RPDA Continue DAPT Discharge planning Staged PCI of the LAD can be pusued subsequently pending clinical course as outpatient Electronically Signed by Neno Augustin MD on at 1103 RPT #: [id number] END OF REPORT 2022-06-25 [facility] 09:54:00-00:00 [facility] ([facility]) Hospitalist Discharge Summary REPORT#:[id number] REPORT STATUS: Signed DATE:06/25/22 TIME:953 PATIENT: PATITO LUNA UNIT #: [id number] ROOM/BED: [place] [address] : 57 AGE: 66 SEX: M ATTEND: Yumiko Red MD ADM AUTHOR: Jamal Red MD * ALL edits or amendments must be made on the el [employer]/computer document * General Information Discharge date: 06/25/22 Discharge diagnosis: Acute STEMI (ST elevation myocardial infarction) Status post C , S/p PCI PCI with PTCA of wiyot RCA and DEStenti ng of the SVG [...] activated and he was taken to the powerhouse laborer and Dr. Augustin perfomed heart cath with PCI with PTCA of wiyot RCA and DEStenting of the SVG to the RPDA by Dr Augustin on 06/24/22 Patient was monitored on telemetry and continued on our antiplatelet therapy with pain medications and home medicatio ns titrated. Patient responded well to treatment and is being discharged home today in a stable condition with and advised to follow-up with LIBBY Salgado in 1 week and also with cardiology [...] Musculoskeletal: normal inspection, no CVA tende rness Neuro/STORE CUSTODIAN: alert, oriented X 3, CNII-XII intact, no [...] 1-2 weeks Attending Physician: Attending Physician: Jamal Rde MD Consulting provider 1: Provider 1: Neno Augustin MD Specialty: CardiologyInterventional Consult follow up timeframe: In 1-2 weeks Electronically Signed by Jamal Red MD on at 1231 RPT #: [id number] END OF REPORT 2022-06-24 [facility] 15:01:00-00:00 [facility] ([facility] Cardiology Progress Note REPORT#:[id number] REPORT STATUS: Signed DATE:06/24/22 TIME:1501 PATIENT: PATITO LUNA UNIT #: [id number] ROOM/BED: [place] [address] : 57 AGE: 66 SEX: M ATTEND: Yumiko Red MD ADM AUTHOR: Neno Augustin MD * ALL edits or amendments must be made on the [employer] document * Subjective HPI: 66-year-old gentleman with significant PMH PSH and comorbidties including premature CAD s/p CABG x 4 in 2018 who experienced severe cp / angina sob diaphoresis upper epigastric pain. H e states his symptoms started around 5 PM and he woke up and drenched with sweat. This incident occurred again at 11 PM. He also complains of mo derate, achy, sharp epigastric pain. He states this [...] HCl (lidocaine HCL) 0 .STK-MED ONE .RO DION (DC) Midazolam HCl (VERSED) 0 .STK-MED ONE [...] extremity: LE assessment: edema, abnormal peripheral pulse Neuro/STORE CUSTODIAN: alert, oriented X 3, normal speech, n [...] (Auto) (20.5 - 51.1 %) 4.1 L Lea % (Auto) (1.7 - 9.3 %) 1.5 L Eos % (Auto) (0.0 - 6.0 %) 0.1 Baso % (Auto) (0.0 - 2.0 %) 0.6 Neut # (Auto) (1.8 - 7.6 K/mm3) 9.2 H Lymph # (Auto) (0.6 - 3.0 K/mm3) 0.4 L Lea # (Auto) (0.2 - 1.5 K/mm3) 0.2 [...] Impressions: RADIOLOGY - XR CHEST 1 V 06/245 Report Impression - Status: SIGNED Entered: 06/24/2022 014 IMPRESSION: Mild left basilar subsegmental atelectasis. Limi garrett study. Impression By: Angel - Bradley Tapia Diagnosis, Assessment Plan Consultants: cardiology Free Text DxA P Notes Free Text DxA P Notes: ASSESSMENT: Acute STEMI - inferior distribution - s/p succes sful primary PCI with PTCA of wiyot RCA and DEStenting of the SVG to the RPDA Acute on chronic systolic and diastolic congesti ve heart failure - HFrEF 45% Coronary atherosclerotic disease - s/p CABG x 4 in 2018 Ischemic cardiomyopathy Metabolic syndrome with HHD dyslipdemia insulin resistance PLAN: Otimize cardiac medical management s/p successfu l primary PCI with PTCA of wiyot RCA and DEStenting of the SVG to the DA Electronically Signed by Neno Augustin MD on at 1101 RPT #: [id number] END OF REPORT 2022-06-24 [facility] 08:43:00-00:00 [facility] ([facility]) Pulmonary Consultation Note REPORT#:[id number] REPORT STATUS: Signed DATE:06/24/22 TIME:08 PATIENT: PATITO LUNA UNIT #: [id number] ROOM/BED: [place] [id number] : 57 AGE: 66 SEX: M ATTEND: Yumiko Red MD ADM AUTHOR: Arnie Candelario MD * ALL edits or amendments must be made on the el [employer]/computer document * History of Present Illness HPI [...] Admin Clopidogrel Bisulfate 75 MG DAILY 06/24 0900 AC (Plavix) PO 07/24 0859 Ticagrelor 0 .STK-MED ONE 06/24 0243 DC [...] 07/24 165 Carvedilol 6.25 MG Q12HR 06/24 0900 AC (COREG) PO 07/24 0859 Isosorbide 60 MG DAILY 06/24 0900 AC Mononitrate PO 07/24 08 (IMDUR) Lidocaine HCl 0 .STK-MED ONE 06/24 014 DC (lidocaine HCL) .ROUTE Nitroglycerin/ 250 ML .STK-MED ONE 06/24 014 D C Dextrose IV (NITROGLYCERIN 100 MCG/ML DRIP) Central Nervous System Agents Sig/Jenniffer Start time Last Medication Dose Route Stop Time Status Admin Aspirin 81 MG DAILY 06/24 09 AC (ECOTRIN) PO 07/24 08 Midazolam HCl 0 .STK-MED ONE 06/24 014 DC (VERSED) .ROUTE Fentanyl Citrate 0 .STK-MED ONE 06/24 0145 DC (SUBLIMAZE) .ROUTE Aspirin 324 MG X1ED STA 06/24 0110 DC 06/24 (ASPIRIN CHEWABLE) PO 06/24 011 0118 Diagnostic Agents Sig/Jenniffer Start time Last Medication Dose Route Stop Time Status Admin Iopamidol 0 .STK-MED ONE 06/24 0233 DC (ISOVUE-300) .ROUTE Iopamidol 0 .STK-MED ONE 06/24 014 DC (ISOVUE-300) .ROUTE Gastrointestinal Drugs Sig/Jenniffer Start time Last Medication Dose Route Stop Time Status Admin Famotidine 0 .STK-MED ONE 06/24 014 DC (PEPCID) .ROUTE Hormones And Synthetic Substit Sig/Jenniffer Start time Last Medication Dose Route Stop Time Status Admin Methylprednisolone 0 .STK-MED ONE 06/24 014 DC Sodium Succinate .ROUTE (Solu-MEDROL) Skin And Mucous Membrane Agent Sig/Jenniffer Start time Last Medication Dose Route Stop Time Status Admin Mupirocin 1 APPLIC 0900,1700 06/24 0900 AC (BACTROBAN NASAL- NASAL 06/28 1701 ADULT ICU/ISAS MRSA PATIENTS) Allergies: Coded Allergies: Penicillins (Severe, SWELLING 06/24/22) iodine (Severe, SWELLING 06/24/22) Review of Systems All systems rev neg: except as marked Objective Physical Exam Vitals: Last Documented: Result Date Time Pulse Ox 98 06/24 629 B/P 167/96 06/24 629 B/P Mean 125 06/24 629 Pulse 66 06/24 629 Resp 11 06/24 629 FiO2 28 06/24 405 O2 Delivery Nasal cannula 06/24 405 O2 Flow Rate 2 06/24 405 Temp 36.3 06/24 0337 Vascular pulse assessment: [...] on 06/04 04/27 at 0844 RPT #: [id number] END OF REPORT 2022-06-24 [facility] 04:48:00-00:00 [facility] ([facility]) Hospitalist History Physical REPORT#:[id number] REPORT STATUS: Signed DATE:06/24/22 TIME:447 PATIENT: PATITO LUNA UNIT #: [id number] ROOM/BED: [place] [address] : 57 AGE: 66 SEX: M ATTEND: Yumiko Red MD ADM AUTHOR: Anisha Pendleton I APRNNP * ALL edits or amendments must be made on the [employer]/computer document * Anisha Pendleton I 06/24/22 0448: History of Present Illness HPI Chief complaint: [...] activated and he was taken to the powerhouse laborer and Dr. Augustin perfomed heart cath with PCI with PTCA of wiyot RCA and DEStenting of the SVG to [...] Pulse Resp B/P B/P Mean Pulse Ox FiO2 06/24 97.3-98.0 64-85 10-33 112-177/63-98 84-12 4 96-98 28 Last Documented: Result Date Time Pulse Ox 98 06/24 0545 B/P 133/74 06/24 0545 B/P Mean 93 / 0545 Pulse 64 06/24 0545 Resp 10 [...] HCl (lidocaine HCL) 0 .STK-MED ONE .RO DION (DC) Midazolam HCl (VERSED) 0 .STK-MED ONE [...] Musculoskeletal: normal inspection, no CVA tende rness Neuro/STORE CUSTODIAN: alert, oriented X 3, CNII-XII intact, no [...] (Auto) (20.5 - 51.1 %) 4.1 L Lea % (Auto) (1.7 - 9.3 %) 1.5 L Eos % (Auto) (0.0 - 6.0 %) 0.1 Baso % (Auto) (0.0 - 2.0 %) 0.6 Neut # (Auto) (1.8 - 7.6 K/mm3) 9.2 H Lymph # (Auto) (0.6 - 3.0 K/mm3) 0.4 L Lea # (Auto) (0.2 - 1.5 K/mm3) 0.2 Eos # (Auto) (0.0 - 0.4 K/mm3) 0.0 Baso # (Auto) (0.0 - 0.2 K/mm3) 0.1 Abs Immat Gran (auto) (0.00 - 0.03 x10 3/uL) 0 .03 Add Manual Diff (CRITERIA DIFF/SCN) NO Immature Gran % (0.0 - 5.0 %) 0.3 Nucleated RBC % (0.0 - 1.0 /100WBC%) 0.0 Laboratory Tests 06/24/22 0444: [Embedded Image Not Available] 06/24/22 0111: [Embedded Image Not Available] Radiology data: Recent Impressions: RADIOLOGY - XR CHEST 1 V 06/24 134 Report Impression - Status: SIGNED Entered: 06/24/2022143 IMPRESSION: Mild left basilar subsegmental atelectasis. Pierre tucker study. Impression By: Angel - Bradley Tapia [...] CABG 2018 - PCI with PTCA of wiyot RC A and DEStenting of the SVG [...] - s/p CABG x 4 in 2018 - DEStenting of the SVG to the [...] nselin min. Code Status: Full code. Anisha Pendleton APRN Consultants: cardiology Plan discussed with: patient Time spent: Time spent on patient care (minutes): 45 Code status: full code Jamal Red 06/24/22 1741: Attestations Physician Attestation Agree w/findings plan: Appreciate note from RESIDENT DIRECTOR Agree with the history and physical findings Lab works noted Imaging noted as well Findings were discussed with the DAMION and Staff Electronically Signed by Anisha Pendleton o n 06/24/22 at 0753 Electronically Signed by Jamal Red MD on at 1742 [facility] #: [id number] END OF REPORT 2022-06-24 [facility] 03:02:00-00:00 [facility] ([facility]) Cardiology Consultation REPORT#:[id number] REPORT STATUS: Signed DATE:06/24/22 TIME:0302 PATIENT: PATITO LUNA UNIT #: [id number] ROOM/BED: [place] [address] : 57 AGE: 66 SEX: M ATTEND: Yumiko Red MD ADM AUTHOR: Neno Augustin MD * ALL edits or amendments must be made on the [employer]/computer document * History of Present Illness HPI [...] 168/90 116 98 Nasal 2 cannula 06/24 012 Nasal 2 cannula 06/24 012 98 Nasal 2 cannula 06/24 011 36.7 85 20 177/98 124 97 Room [...] extremity: LE assessment: edema, abnormal peripheral pulse Neuro/STORE CUSTODIAN: alert, oriented X 3, normal speech, n o motor deficits Results Findings/Data: Laboratory Tests 06/24 110 Chemistry Sodium (134 - 147 mmol/L) 138 [...] - 100 PG/ML) 127 H Laboratory Tests 06/24 06/24 0217 0111 Coagulation Activated Coag Time (74 - 125 SEC) 267 H D-Dimer (215 - 500 ng/mLFEU) 261 Laboratory Tests 06/24 0111 Hematology WBC (3.5 - 11.0 K/mm3) 9.5 [...] 06/24/2022143 IMPRESSION: Mild left basilar subsegmental atelectasis. [place] ited study. Impression By: [email or web address] - Bradley Tapia Diagnosis, Assessment Plan Free Text DxA P Notes Free Text DxA P Notes: ASSESSMENT: Acute STEMI - inferior distribution - s/p succes sful primary PCI with PTCA of wiyot RCA and DEStenting of the SVG to the RPDA Acute on chronic systolic and diastolic congesti ve heart failure - HFrEF 45% Coronary atherosclerotic disease - s/p CABG x 4 in 2018 Ischemic cardiomyopathy Metabolic syndrome with HHD dyslipdemia insulin resistance PLAN: s/p successful primary PCI w ith PTCA of wiyot RCA and DEStenting of the SVG to the RPDA optimize cardiac medical management Electronically Signed by Neno Augustin MD on at 1058 RPT #: [id number] END OF REPORT 2022-06-24 [facility] 02:57:00-00:00 [facility] ([facility]) DT Operative Note REPORT#:[id number] REPORT STATUS: Signed DATE:06/24/22 TIME:256 PATIENT: PATITO LUNA UNIT #: [id number] ROOM/BED: [place] [address] : 57 AGE: 66 SEX: M ATTEND: Yumiko Red MD ADM AUTHOR: Neno Augustin MD * ALL edits or amendments must be made on the el [employer]/computer document * Operative Report Operative Note Note: Procedure Date: 06/24/2022 Procedures performed: 1. Left heart / cardiac catheterization, selecti ve diagnostic coronary angiograms, and left ventriculogram, LEF T INTERNAL MAMMARY ARTERY (JOHNSON) graft and SAPHENOUS VEIN BYPASS GRAFT (SVG) angiograms 2. Percutaneous coronary revascularization of th e wiyot RIGHT POSTERIOR DESCENDING ARTERY (RPDA)) di stribution [...] proceed with percutaneous coronary revascularization of the wiyot RIGHT C ORONARY ARTERY distribution. The proximal [...] ell the procedure, was discharged from the powerhouse laborer in stable condition. Results: I. Diagnostic angiography demonstrated moderate to severe diifuse coronary calcification with significant wiyot three vess el coronary artery and bypass [...] a proximal OMB was patent but the wiyot OMB was atretic with diffuse disease beyond the distal a nastomosis. In addition, The JOHNSON bypass appeared to jocelyn ch to another OMB was patent but the wiyot OMB was also atretic and subtottally occluded [...] Augustin MD on at 1104 RPT #: [id number] END OF REPORT 2022-06-24 [facility] 01:25:00-00:00 [facility] ([facility]) EMERGENCY PROVIDER REPORT REPORT#:[id number] REPORT STATUS: Signed DATE:06/24/22 TIME:012 PATIENT: PATITO LUNA UNIT #: [id number] ROOM/BED: [place] [address] : 57 AGE: 66 SEX: M PCP PHYS: Horace Morocho Jr, MD SERVICE AUTHOR: Sydney De Leon MD * ALL edits or amendments must be made on the [employer]/computer document * HPI-Chest Pain 40 and Over [...] General Confirmed Patient Yes Initial Greet Date/Time 06/24/22 0109 Presentation Chief Complaint Chest pain, Diaphoresis, Shortne [...] Temp 36.7 06/24 110 Pulse 85 06/24 011 Resp 20 06/24 110 O2 Flow Rate 2 06/24 0123 Last Documented: Result Date Time Pulse Ox 98 06/24 0130 B/P 168/90 06/240 B/P Mean 116 06/24 013 O2 Delivery Nasal cannula 06/24 129 O2 [...] Diagnostics Lab Results Interpretation Results Laboratory Tests 06/24/22110: [Embedded Image Not Available] Laboratory Tests: 06/24 Chemistry Sodium (134 - 147 mmol/L) 138 [...] RADIOLOGY - XR CHEST 1 V 06/24 0135 Report Impression - Status: SIGNED Entered: 06/24/2022 0144 IMPRESSION: Mild left basilar subsegmental atelectasis. Limi garrett study. Impression By: Angel - Bradley Tapia Lab Imaging Statement Laboratory radiographic studies reviewed and con sidered in the medical decision-making. ECG #1 Interpretation Date 06/24/22 Time 0107 Interpreted by and reviewed by me, Independently interpreted Rate 69 ECG Q-T-ST - NE STEMI inferior wall, ST depressi on - lat Re-Evaluation MDM Free Text MDM Notes Free Text MDM Notes Code STEMI activated Differential diagnosis: NSTE NE, STEMI, pneumonia, angina, ACS, costochondritis, asthma exacerbation, pulmonary embolism, GERD/ga stritis Final diagnoses: STEMI Comorbidities/restratification: Quadruple bypass , hypertension, CAD --Acuity of presenting problems: Acute severe ch est pain History obtained from independent source: EMS External records reviewed: EKG Discussion of management/consultants: -- Discussed management of [facility] patient with hospitalist and they agree and will admit patient -- Discussed case with Gurpreet coronado: They agree with management plan and will see patient-spoke to pot operator and will present for cardiac catheterization Independent interpretation of studies by Dr. De Leon: EKG independently reviewed and interpreted Diagnostic testing/prescription medication consi dered (not performed): None Social determinants of health that affect care: None Shared decision making: Disc ussion with patient on work-up and disposition based on presenting symptoms/complaints. Admitted to [facility] ICU after catheterization ED Course Medication(s) Ordered Medication(s) Ordered: Antihistamine Drugs Sig/Jenniffer Start time Last Medication Dose Route Stop Time Status Admin Diphenhydramine HCl 0 .STK-MED ONE 06/24 0149 D C .ROUTE Blood Formation,Coagulation Sig/Jenniffer Start time Last Medication Dose Route Stop Time Status Admin Heparin Sodium 0 .STK-MED ONE 06/24 014 DC (Porcine) .ROUTE Heparin Sodium 1,500 ML .STK-MED ONE 06/24 014 6 DC (Porcine) IV Cardiovascular Drugs Sig/Jenniffer Start time Last Medication Dose Route Stop Time Status Admin Lidocaine HCl 0 .STK-MED ONE 06/24 145 DC .ROUTE Nitroglycerin/ 250 ML .STK-MED ONE 06/24 0146 D C Dextrose IV Central Nervous System Agents Sig/Jenniffer Start time Last Medication Dose Route Stop Time Status Admin Midazolam HCl 0 .STK-MED ONE 06/24 014 DC .ROUTE Fentanyl Citrate 0 .STK-MED ONE 06/24 0145 DC .ROUTE Aspirin 324 MG X1ED STA 06/24 0110 DC 06/24 PO 06/24 110 0118 Diagnostic Agents Sig/Jenniffer Start time Last Medication Dose Route Stop Time Status Admin Iopamidol 0 .STK-MED ONE 06/24 014 DC .ROUTE Gastrointestinal Drugs Sig/Jenniffer Start time Last Medication Dose Route Stop Time Status Admin Famotidine 0 .STK-MED ONE 06/24 014 DC .ROUTE Hormones And Synthetic Substit Sig/Jenniffer [...] Room air 06/24 011 Temp 36.7 06/24 011 Pulse 85 06/24 0111 Resp 20 06/24 011 O2 Flow Rate 2 06/24 0123 Last Documented: Result Date Time Pulse Ox 98 06/24 0130 B/P 168/90 06/24 0130 B/P Mean 116 06/24 0130 O2 Delivery Nasal cannula 06/24 013 O2 Flow Rate 2 06/24 013 Pulse 70 06/24 0130 Resp 19 06/24 [...] this patient's care. at 0410 RPT #: [id number] END OF REPORT 2018-08-15 EXAM: XR CHEST AP 1 VIEW RAMIRO velasquez [facility] 21:33:00-00:00 DATE: 08/15/2018 2137 hours CDT C [...] 2018-08-15 EXAM: US ABDOMEN LIMITED RAMIRO velasquez [facility] 21:33:00-00:00 DATE: 08/15/2018 2212 hours Cente r [...] be helpful for further evaluation. 2. Hepatosteatosis. 2018-08-15 EXAM: XR CHEST AP 1 VIEW RAMIRO velasquez [facility] 21:33:00-00:00 DATE: 08/15/2018 2137 hours CDT C [...] 2018-08-15 EXAM: US ABDOMEN LIMITED RAMIRO velasquez [facility] 21:33:00-00:00 DATE: 08/15/2018 2212 hours Cente r [...] for further evaluation. 2. Hepatosteatosis. 2018-06-21 PROCEDURE: [facility] 12:01:00-00:00 1. US-guided placement of 10 -[place] percutaneous drainage catheter in anterior chest wall [...] for local anesthesia. Under ultrasound guidance, a 5-[place] 19-gauge sheath needle was advanced into the fluid collection. A small amount of serosanguineous fluid was re moved. A 0.035 inch short Am maxim wire was advanced. The tract was dilated with 8 and 10-[place] dilators. A 10-[place] locking loop catheter was advanced over the [...] the procedure well. IMPRESSION: Ultrasound-guided placement of 10-[place] percutaneous drainage catheter in anterior chest wall [...] onto the drain for negativ e pressure. 2018-06-21 PROCEDURE: [facility] 12:01:00-00:00 1. US-guided placement of 10 -[place] percutaneous drainage catheter in anterior chest wall [...] for local anesthesia. Under ultrasound guidance, a 5-[place] 19-gauge sheath needle was advanced into the fluid collection. A small amount of serosanguineous fluid was re moved. A 0.035 inch short Am maxim wire was advanced. The tract was dilated with 8 and 10-[place] dilators. A 10-[place] locking loop catheter was advanced over the [...] the procedure well. IMPRESSION: Ultrasound-guided placement of 10-[place] percutaneous drainage catheter in anterior chest wall [...] pressure. 2018-06-03 PROCEDURE: CT-guided placeme nt of 10-[place] percutaneous drainage catheter in anterior chest wall fluid collection. [facility] 08:58:00-00:00 DATE OF PROCEDURE: 06/03/2018 INDICATION: 62-year-old [...] for local anesthesia. Under CT guidance, a 5-[place] 19-gauge sheath needle was advanced into the fluid collection. A small amount of serosanguin eous fluid was removed. A 0. 035 inch short Amplatz wire was advanced. The tract was dilated with 8 and 10-[place] dilators. A 10-[place] locking loop catheter was advanced over the [...] 25 mL, dwell time of 1 hour). 2018-06-03 PROCEDURE: CT-guided placeme nt of 10-[place] percutaneous drainage catheter in anterior chest wall fluid collection. [facility] 08:58:00-00:00 DATE OF PROCEDURE: 06/03/2018 INDICATION: 62-year-old [...] for local anesthesia. Under CT guidance, a 5-[place] 19-gauge sheath needle was advanced into the fluid collection. A small amount of serosanguin eous fluid was removed. A 0. 035 inch short Amplatz wire was advanced. The tract was dilated with 8 and 10-[place] dilators. A 10-[place] locking loop catheter was advanced over the [...] hour). 2018-06-02 EXAM: Chest wo contrast CT [facility] 16:34:00-00:00 DATE: 06/02/2018 16:34 CDT. INDICATION: Chest [...] pleural effusions, right more than left. 2018-06-02 EXAM: Chest wo contrast CT [facility] 16:34:00-00:00 DATE: 06/02/2018 16:34 CDT. INDICATION: Chest [...] EXAMINATION: Chest, 2 view, frontal and lateral [facility] 15:55:00-00:00 HISTORY: Shortness of breath; possible [...] place, terminating near the superior cavoatrial junction. 2018-06-02 EXAMINATION: Chest, 2 view, frontal and lateral [facility] 15:55:00-00:00 HISTORY: Shortness of breath; possible [...] superior cavoatrial junction. 2018-05-21 EXAM: Chest [facility] 03:00:00-00:00 HISTORY: - Post sternal I\\T\\D w/ ENEDINA COMPARISON: 05/20/2018 IMPRESSION: During overlies the midline. The cardiac silhouette is nonenlarged for portable technique. There are linear atelectatic changes in the lungs. No dense consolidation or effusion. There appears to be a skinfold on the left witho ut definitive pneumothorax. 2018-05-21 EXAM: Chest 1view DX [facility] 03:00:00-00:00 HISTORY: - Post sternal I\\T\\D w/ ENEDINA COMPARISON: 05/20/2018 IMPRESSION: During overlies the midline. The cardiac silhouette is nonenlarged for portable technique. There are linear atelectatic changes in the lungs. No dense consolidation or effusion. There appears to be a skinfold on the left witho ut definitive pneumothorax. 2018-05-20 EXAM: Chest [address] [place] [address] 07:39:00-00:00 DATE: 05/20/2018 7:39 CDT. INDICATION: Chest [...] effusion. 2. Decreasing left lower lobe atelectasis. 2018-05-20 EXAM: Chest 1view DX [facility] 07:39:00-00:00 DATE: 05/20/2018 7:39 CDT. INDICATION: [...] lower lobe atelectasis. 2018-05-[address] [facility] 03:00:00-00:00 INDICATION: Sternal wound debridement COMPARISON: 05/18/2018 FINDINGS: Heart/mediastinum: normal size no masses LUNGS: Left lower lobe atele ctasis is mildly increased. There is no definite effusion. Support lines/tubes: Unchanged Bone structures: no acute changes Upper Abdomen: unremarkable Impression: Increased left lower lobe atelectasis 2018-05-[address] [facility] 03:00:00-00:00 INDICATION: Sternal wound debridement COMPARISON: 05/18/2018 FINDINGS: Heart/mediastinum: normal size no masses LUNGS: Left lower lobe atele ctasis is mildly increased. There is no definite effusion. Support lines/tubes: Unchanged Bone structures: no acute changes Upper Abdomen: unremarkable Impression: Increased left lower lobe atelectasis 2018-05-[address] [facility] 03:00:00-00:00 INDICATION: Sternal wound debridement COMPARISON: 05/17/2018 FINDINGS: Heart/mediastinum: Heart is normal size. LUNGS: Left lower lobe atele ctasis is mildly improved. There may be a trace left effusion. Support lines/tubes: Left PICC line and sternal drains are stable. Bone structures: no acute changes Upper Abdomen: unremarkable Impression: Improved left lower lobe atelectasis 2018-05-[address] [facility] 03:00:00-00:00 INDICATION: Sternal wound debridement COMPARISON: 05/17/2018 FINDINGS: Heart/mediastinum: Heart is normal size. LUNGS: Left lower lobe atele ctasis is mildly improved. There may be a trace left effusion. Support lines/tubes: Left PICC line and sternal drains are stable. Bone structures: no acute changes Upper Abdomen: unremarkable Impression: Improved left lower lobe atelectasis 2018-05-17 EXAM: AP CHEST X-RAY [facility] 15:27:00-00:00 DATE: 05/17/2018 15:27 CDT . [...] left basal atelectas is 2018-05-17 EXAMINATION: [facility] 15:27:00-00:00 Indication:62 years Male - s/p fall [...] clinical concern, consider face or sinus CT. 2018-05-17 EXAM: AP CHEST X-RAY [facility] 15:27:00-00:00 DATE: 05/17/2018 15:27 CDT . [...] left basal atelectas is 2018-05-17 EXAMINATION: [facility]ial[facility] 15:27:00-00:00 Indication:62 years Male - s/p fall [...] Study: Chest 1view DX 05/16/2018 3:00 CDT [facility] 03:00:00-00:00 Clinical Indication:62 years Male dyspnea [...] subsegmental atelectasis w ith low lung volumes. 2018-05-16 Study: Chest 1view DX 05/16/2018 3:00 CDT [facility] 03:00:00-00:00 Clinical Indication:62 years Male dyspnea [...] low lung volumes. 2018-05-[address] [facility] 03:00:00-00:00 INDICATION: Dyspnea COMPARISON: 05/14/2018 FINDINGS: Heart/mediastinum: normal size no masses LUNGS: There is improving left basal atelectasis . There is no effusion. Support lines/tubes: Left PICC line is stable. Bone structures: no acute changes Upper Abdomen: unremarkable Impression: Improving left basal atelectasis 2018-05-[address] [facility] 03:00:00-00:00 INDICATION: Dyspnea COMPARISON: 05/14/2018 FINDINGS: Heart/mediastinum: normal size no masses LUNGS: There is improving left basal atelectasis . There is no effusion. Support lines/tubes: Left PICC line is stable. Bone structures: no acute changes Upper Abdomen: unremarkable Impression: Improving left basal atelectasis 2018-05-[address] [facility] 03:00:00-00:00 INDICATION: Sternal wound debridement COMPARISON: 05/13/2018 FINDINGS: Heart/mediastinum: normal size no masses LUNGS: Platelike atelectasis is again seen in the lower left lung field. There is no effusion or consolidation. Support lines/tubes: Left PICC line is stable Bone structures: no acute changes Upper Abdomen: unremarkable Impression: No interval change 2018-05-[address] [facility] 03:00:00-00:00 INDICATION: Sternal wound debridement COMPARISON: 05/13/2018 FINDINGS: Heart/mediastinum: normal size no masses LUNGS: Platelike atelectasis is again seen in the lower left lung field. There is no effusion or consolidation. Support lines/tubes: Left PICC line is stable Bone structures: no acute changes Upper Abdomen: unremarkable Impression: No interval change 2018-05-13 EXAM: XR CHEST 1 VIEW [facility] 03:00:00-00:00 DATE: 05/13/2018 3:00 CDT INDICATION: pre op testing - evaluate lung field s COMPARISON: 05/09/2018 TECHNIQUE: Frontal chest radiograph FINDINGS/IMPRESSION: Platelike atelectasis is again seen in the left lower lung. The lungs are otherwise clear. A left-sided PICC line remains in place. There is no new abnormality. 2018-05-13 EXAM: XR CHEST 1 VIEW [facility] 03:00:00-00:00 DATE: 05/13/2018 3:00 CDT INDICATION: pre op testing - evaluate lung field s COMPARISON: 05/09/2018 TECHNIQUE: Frontal chest radiograph FINDINGS/IMPRESSION: Platelike atelectasis is again seen in the left lower lung. The lungs are otherwise clear. A left-sided PICC line remains in place. There is no new abnormality. 2018-05-09 CLINICAL HISTORY: Line Place ment - Chest 1 view for Picc line placement [facility] 17:53:00-00:00 AGE: 62 years GENDER: Male [...] cavoatrial ju nction. No acute cardiopulmonary disease. 2018-05-09 CLINICAL HISTORY: Line Place ment - Chest 1 view for Picc line placement [facility] 17:53:00-00:00 AGE: 62 years GENDER: Male [...] cardiopulmonary disease. 2018-04-05 Indication: Lung nodules. Osteomyelitis [facility] 15:20:00-00:00 COMPARISON: Radiograph 03/01 and computed tomography scan 02/28/2018 and 02/13/2018 City Contrast: None Radiation dose: DLP 579 mGy/cm TECHNIQUE: Helical acquisiti on of the chest was obtained from the lung apices to the diaphragm. Axial, sagittal and coronal images MPR were interpreted. This exam was performed according to our departme nt dose optimization protoco l, which includes automated exposure control, adjustment of [...] mild pericardial thickening could represent reactive pericarditis. 2018-04-05 Indication: Lung nodules. Osteomyelitis [facility] 15:20:00-00:00 COMPARISON: Radiograph 03/01 and computed tomography scan 02/28/2018 and 02/13/2018 City Contrast: None Radiation dose: DLP 579 mGy/cm TECHNIQUE: Helical acquisiti on of the chest was obtained from the lung apices to the diaphragm. Axial, sagittal and coronal images MPR were interpreted. 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 ORDERING PHYSICIAN: Hector Ahuja MD CLINICAL [...] or scarring in the lingula 2018-02-28 EXAM: [facility] 02:26:00-00:00 CT chest angiogram with contrast. [...] according to our department dose optimization protocol, whi ch includes automated exposu re control, adjustment [...] interval removal of the sternal wires. 2018-02-28 EXAM: [facility] 02:26:00-00:00 CT chest angiogram with contrast. [...] according to our department dose optimization protocol, [facility] ch includes automated exposu re control, adjustment [...] of the sternal wires. 2018-02-28 Indication: Dyspnea [facility] 02:24:00-00:00 COMPARISON: 02/27/2018 Findings/impression: Portabl e chest radiograph demonstrates prominent heart size although is stable. Lungs are clear. Left PICC line is stable. 2018-02-28 Indication: Dyspnea [facility] 02:24:00-00:00 COMPARISON: 02/27/2018 Findings/impression: Portabl e chest radiograph demonstrates prominent heart size although is stable. Lungs are clear. Left PICC line is stable. 2018-02-27 Clinical Indication: - dyspn ea 'gurgling', on abx for osteomyelitis to sternum, on IV vanco; shortness of breath, back pain. [facility] 21:24:00-00:00 Comparison: Prior radiograph dated 02/15/2018. FINDINGS: [...] of acute cardiopu lmonary disease. SL: NANCY 2018-02-27 Clinical Indication: - dyspn ea 'gurgling', on abx for osteomyelitis to sternum, on IV vanco; shortness of breath, back pain. [facility] 21:24:00-00:00 Comparison: Prior radiograph dated 02/15/2018. FINDINGS: [...] - Chest 1 view for line placement [facility] 11:36:00-00:00 TECHNIQUE: Single AP view of [...] consolidation, pleural effusion, or evidence of pneumothorax. [id number] 2018-02-15 HISTORY: Line Placement - Chest 1 view for line placement [facility] 11:36:00-00:00 TECHNIQUE: Single AP view of [...] consolidation, pleural effusion, or evidence of pneumothorax. [id number] 2018-02-14 EXAM: [facility] 17:46:00-00:00 Chest x-ray, 1 view(s). CLINICAL HX: post op - evaluate for lung sommers. Known infect ion. Age: 62 years. Gender: Male. COMPARISON: Chest x-ray: Yesterday. IMPRESSION: 1. Support apparatus: Interval removal of sterno jose wires. 2. Mild left basilar, retroc ardiac airspace opacity which may represent atelectasis or atypical infectious process/pneumonia. 3. No pneumothorax. 2018-02-14 EXAM: [facility] 17:46:00-00:00 Chest x-ray, 1 view(s). CLINICAL [...] Shortness of Breath - sternal wound infection [facility] 16:35:00-00:00 AGE: 62 years GENDER: Male [...] mediastinal abscess on this noncontrast examination. 2018-02-13 CLINICAL HISTORY: Shortness of Breath - sternal wound infection [facility] 16:35:00-00:00 AGE: 62 years GENDER: Male [...] of breath - evaluate for lung sommers [facility] 15:59:00-00:00 TECHNIQUE: Single AP view of the chest at 16:32. COMPARISON: None available. FINDINGS/IMPRESSION: Changes from prior sternotomy are seen. No radiographic evidence of acute cardiopulmonary disease. [id number] 2018-02-13 HISTORY: shortness of breath - evaluate for lung sommers [facility] 15:59:00-00:00 TECHNIQUE: Single AP view of the chest at 16:32. COMPARISON: None available. FINDINGS/IMPRESSION: Changes from prior sternotomy are seen. No radiographic evidence of acute cardiopulmonary disease. [id number]
[2022-10-19] MEDS ORDERED: LEVALBUTEROL 1.25 MG/3 ML NEB ONE (20:47)
--- NOTE | 2022-10-19 20:47 | RAD REPORT ---
EXAM DESCRIPTION: RAD - Chest Single View - 10/19/2022 8:34 pm CLINICAL HISTORY: CHEST PAIN COMPARISON: Chest Single View dated 08/31/2022; Chest Single View dated 11/20/2021; Chest Single View dated 08/15/2018; Chest Single View dated 01/14/2018 FINDINGS: Lines: None. Lungs: No evidence of edema or pneumonia. Minimal linear scarring at the left lung base. Pleural: No significant pleural effusions or pneumothorax. Cardiac: The heart size is within normal limits. Mediastinum: Within normal limits. Bones: No acute fractures. Other: None IMPRESSION: No acute cardiopulmonary disease.
[2022-10-19 20:51] LABS: Absolute Lymphocytes (CBC) 1.4 K/uL (0.7-4.9); Hematocrit 43.2 % (39.6-49.0); Lymphocytes % 22.9 % (15.3-44.8); MCV 93.3 fL (80-100); MPV 8.4 fL (7.6-11.3); Platelets 203 thou/uL (152-406); RBC Red Blood Cell Count 4.63 M/uL (4.33-5.43)
[2022-10-19 21:04] LABS: ALT/SGPT 20 U/L (16-61); AST/SGOT 12 U/L (15-37); Albumin 3.1 g/dL (3.4-5.0); Alkaline Phosphatase 83 U/L (45-117); BUN Blood Urea Nitrogen 14 mg/dL (7-18); Bicarbonate 25 mEq/L (21-32); Bilirubin Total 0.2 mg/dL (0.2-1.0); Glomerular Filtration Rate 86 ml/min (=/>90); Glucose Level 121 mg/dL (74-106); Magnesium 1.8 mg/dL (1.6-2.4); NT PRO-BNP 183 pg/mL (<125); Potassium 3.4 mEq/L (3.5-5.1); Protein, Total 6.6 g/dL (6.4-8.2); Sodium Level 140 mEq/L (136-145); Troponin High Sensitivity 7.2 pg/mL (<58.9)
[2022-10-19 21:31] LABS: Bilirubin Direct < 0.1 mg/dL (0-0.2); Bilirubin Indirect, Calculated ND mg/dL (0.2-0.8)
--- NOTE | 2022-10-20 01:29 | ER ---
Nurse's Notes [facility] Name: Fred Hardy Age: 66 yrs Sex: Male : 1955 Arrival Date: 10/19/2022 Time: 19:53 Bed 13 Private MD: Diagnosis: Chest pain, unspecified Presentation: 10/19 20:01 Chief complaint: Patient states: chest pain and shortness of breath onset today. Pt cm10 states that the pain is across his chest and describes it as a tightness. Pt states that the pain started in his left arm. Coronavirus screen: Vaccine status: Patient reports being unvaccinated. Ebola Screen: Patient denies travel to an Ebola-affected area in the 21 days before illness onset. No symptoms or risks identified at this time. Initial Sepsis Screen: Does the patient meet any 2 criteria? No. Patient's initial sepsis screen is negative. Does the patient have a suspected source of infection? No. Patient's initial sepsis screen is negative. Risk Assessment: Do you want to hurt yourself or someone else? Patient reports no desire to harm self or others. Onset of symptoms was October 19, 2022. 20:01 Method Of Arrival: Ambulatory cm10 20:01 Acuity: JOSÉ MIGUEL 2 cm10 Triage Assessment: 20:30 General: Appears uncomfortable, Behavior is calm, cooperative. Pain: Complains of pain ll3 in chest. Cardiovascular: Patient's skin is warm and dry. Chest pain is described as vague, quality is pressure, is located in anterior chest wall began suddenly, episodes are continuous. Respiratory: Reports shortness of breath Respiratory effort is even, unlabored, Respiratory pattern is regular, symmetrical. Derm: Skin is pink, warm \T\ dry. Historical: - Allergies: 20:05 IV contrast; cm10 20:05 PENICILLINS; cm10 - PMHx: 20:05 coronary atherosclerosis; Hyperlipidemia; Hypertension; Myocardial infarction; cm10 Transient cerebral ischemia; - PSHx: 20:05 Coronary Angioplasty; Coronary artery bypass graft; umbilical hernia repair; cm10 - Immunization history:: Adult Immunizations unknown. - Social history:: Smoking status: Patient/guardian denies using tobacco, the patient reports quitting approximately 5 years ago. Screenin:31 [facility] ED Fall Risk Assessment (Adult) History of falling in the last 3 months, ll3 including since admission No falls in past 3 months (0 pts) Confusion or Disorientation No (0 pts) Intoxicated or Sedated No (0 pts) Impaired Gait No (0 pts) Mobility Assist Device Used No (0 pt) Altered Elimination No (0 pt) Score/Fall Risk Level 0 - 2 = Low Risk Oriented to surroundings, Maintained a safe environment, Educated pt \T\ family on fall prevention, incl call for assistance when getting out of bed. Abuse screen: Denies threats or abuse. Denies injuries from another. Nutritional screening: No deficits noted. Tuberculosis screening: No symptoms or risk factors identified. Assessment: 20:30 General: See triage assessment. ll3 23:48 Reassessment: No changes from previously documented assessment. Patient and/or family ll3 updated on plan of care and expected duration. Pain level reassessed. Patient is alert, oriented x 3, equal unlabored respirations, skin warm/dry/pink. 10/20 01:00 Reassessment: Patient appears in no apparent distress at this time. Patient and/or pf1 family updated on plan of care and expected duration. Pain level reassessed. Patient is alert, oriented x 3, equal unlabored respirations, skin warm/dry/pink. Patient states feeling better. Patient states symptoms have improved. Vital Signs: 10/19 20:01 BP 138 / 84; Pulse 65; Resp 26; Temp 97.9; Pulse Ox 97% ; Weight 88 kg; Height 6 ft. 0 cm10 in. ; Pain 5/10; 21:30 BP 124 / 68; Pulse 64; Resp 18; Pulse Ox 96% on R/A; ll3 22:30 BP 129 / 84; Pulse 72; Resp 22; Pulse Ox 97% on R/A; ll3 23:30 BP 141 / 88; Pulse 65; Resp 20; Pulse Ox 97% on R/A; ll3 10/20 00:30 BP 137 / 86; Pulse 71; Resp 16; Pulse Ox 97% on R/A; Pain 0/10; pf1 01:00 BP 132 / 86; Pulse 58; Resp 16; Pulse Ox 97% on R/A; Pain 0/10; pf1 10/19 20:01 Body Mass Index 26.31 (88.00 kg, 182.88 cm) cm10 10/19 20:01 Pain Scale: Adult cm10 10/20 00:30 Pain Scale: Adult pf1 01:00 Pain Scale: Adult pf1 ED Course: 10/19 19:57 Patient arrived in ED. cc5 20:05 Triage completed. cm10 20:06 Arm band placed on Patient placed in an exam room, on a stretcher. cm10 20:10 Feliberto Max MD is Attending Physician. kdr 20:36 XRAY Chest (1 view) In Process Unspecified. EDMS 20:45 Flu Sent. ll3 20:45 COVID-19 SARS RT PCR Sent. ll3 21:31 Patient has correct armband on for positive identification. Bed in low position. Call ll3 light in reach. Side rails up X 1. Adult w/ patient. Client placed on continuous cardiac and pulse oximetry monitoring. NIBP monitoring applied. 23:47 No provider procedures requiring assistance completed. Patient maintains SpO2 ll3 saturation greater than 95% on room air. 10/20 01:28 Feliberto Max MD is Referral Physician. kdr 01:30 IV discontinued, intact, bleeding controlled, No redness/swelling at site. Pressure pf1 dressing applied. 01:36 Provided Education on: follow up education. pf1 Administered Medications: 10/19 20:49 Drug: Levalbuterol Inhalation 1.25 mg Route: Inhalation; ll3 10/20 00:21 Follow up: Response: No adverse reaction; No change in condition ll3 Medication: 10/19 23:47 VIS not applicable for this client. ll3 Outcome: 10/20 01:28 Discharge ordered by . kdr 01:35 Discharged to home ambulatory. pf1 01:35 Condition: improved 01:35 Discharge instructions given to patient, Instructed on discharge instructions, follow up and referral plans. Demonstrated understanding of instructions, follow-up care. 01:36 Patient left the ED. pf1 Signatures: Dispatcher [employer] EDCO Feliberto Max MD MD kdr Komal Rendon RN RN ll3 Paula Iqbal RN RN pf1 Lisa Hassan cc5 Lisa Sharp, RN RN cm10
--- NOTE | 2022-10-20 01:29 | EDPHYS ---
Physician Documentation [facility] Name: Fred Hardy Age: 66 yrs Sex: Male : 1955 Arrival Date: 10/19/2022 Time: 19:53 Bed 13 Private MD: ED Physician Feliberto Max HPI: 10/19 20:27 This 66 yrs old Male presents to ER via Ambulatory with complaints of Chest Pain, kdr Breathing Difficulty. 20:27 Patient presents to the ED by POV complaining of chest pain, difficulty breathing and kdr general malaise and body aches. This has been going on for few days. Patient tried to get his sister bring him but she was not available. Patient was able to drive himself to the hospital. Patient appears generally uncomfortable. He states that the discomfort he has today is similar to when he has had prior cardiac issues. Patient has a history of coronary stents as well as quadruple bypass. Patient otherwise is alert and oriented and appropriate. Onset: The symptoms/episode began/occurred gradually, 3 day(s) ago. Severity of symptoms: At their worst the symptoms were mild moderate just prior to arrival, in the emergency department the symptoms are unchanged. The patient has not experienced similar symptoms in the past. The patient has not recently seen a physician. Historical: - Allergies: 20:05 IV contrast; cm10 20:05 PENICILLINS; cm10 - PMHx: 20:05 coronary atherosclerosis; Hyperlipidemia; Hypertension; Myocardial infarction; cm10 Transient cerebral ischemia; - PSHx: 20:05 Coronary Angioplasty; Coronary artery bypass graft; umbilical hernia repair; cm10 - Immunization history:: Adult Immunizations unknown. - Social history:: Smoking status: Patient/guardian denies using tobacco, the patient reports quitting approximately 5 years ago. ROS: 20:27 Constitutional: Negative for fever, chills, and weight loss, Eyes: Negative for injury, kdr pain, redness, and discharge, ENT: Negative for injury, pain, and discharge, Neck: Negative for injury, pain, and swelling, Respiratory: Negative for shortness of breath, cough, wheezing, and pleuritic chest pain, Abdomen/GI: Negative for abdominal pain, nausea, vomiting, diarrhea, and constipation, Back: Negative for injury and pain, : Negative for injury, bleeding, discharge, and swelling, MS/Extremity: Negative for injury and deformity, Skin: Negative for injury, rash, and discoloration, Neuro: Negative for headache, weakness, numbness, tingling, and seizure activity. Psych: Negative for depression, anxiety, suicide ideation, homicidal ideation, and hallucinations, Allergy/Immunology: Negative for hives, rash, and allergies, Endocrine: Negative for neck swelling, polydipsia, polyuria, polyphagia, and marked weight changes, Hematologic/Lymphatic: Negative for swollen nodes, abnormal bleeding, and unusual bruising. 20:27 Cardiovascular: Positive for chest pain, of the , Negative for edema, orthopnea, palpitations, paroxysmal nocturnal dyspnea. Exam: 20:27 Constitutional: This is a well developed, well nourished patient who is awake, alert, kdr and in mild distress. Head/Face: Normocephalic, atraumatic. Eyes: Pupils equal round and reactive to light, extra-ocular motions intact. Lids and lashes normal. Conjunctiva and sclera are non-icteric and not injected. Cornea within normal limits. Periorbital areas with no swelling, redness, or edema. Neck: Trachea midline, no thyromegaly or masses palpated, and no cervical lymphadenopathy. Supple, full range of motion without nuchal rigidity, or vertebral point tenderness. No Meningismus. Chest/axilla: Normal chest wall appearance and motion. Nontender with no deformity. No lesions are appreciated. Cardiovascular: Regular rate and rhythm with a normal S1 and S2. No gallops, murmurs, or rubs. Normal PMI, no JVD. No pulse deficits. Respiratory: Lungs have equal breath sounds bilaterally, clear to auscultation and percussion. No rales, rhonchi or wheezes noted. No increased work of breathing, no retractions or nasal flaring. Abdomen/GI: Soft, non-tender, with normal bowel sounds. No distension or tympany. No guarding or rebound. No evidence of tenderness throughout. Back: No spinal tenderness. No costovertebral tenderness. Full range of motion. Skin: Warm, dry with normal turgor. Normal color with no rashes, no lesions, and no evidence of cellulitis. MS/ Extremity: Pulses equal, no cyanosis. Neurovascular intact. Full, normal range of motion. Neuro: Awake and alert, GCS 15, oriented to person, place, time, and situation. Cranial nerves II-XII grossly intact. Motor strength 5/5 in all extremities. Sensory grossly intact. Cerebellar exam normal. Normal gait. Psych: Awake, alert, with orientation to person, place and time. Behavior, mood, and affect are within normal limits. Vital Signs: 20:01 BP 138 / 84; Pulse 65; Resp 26; Temp 97.9; Pulse Ox 97% ; Weight 88 kg; Height 6 ft. 0 cm10 in. ; Pain 5/10; 21:30 BP 124 / 68; Pulse 64; Resp 18; Pulse Ox 96% on R/A; ll3 22:30 BP 129 / 84; Pulse 72; Resp 22; Pulse Ox 97% on R/A; ll3 23:30 BP 141 / 88; Pulse 65; Resp 20; Pulse Ox 97% on R/A; ll3 08 00:30 BP 137 / 86; Pulse 71; Resp 16; Pulse Ox 97% on R/A; Pain 0/10; pf1 01:00 BP 132 / 86; Pulse 58; Resp 16; Pulse Ox 97% on R/A; Pain 0/10; pf1 08 20:01 Body Mass Index 26.31 (88.00 kg, 182.88 cm) cm10 10/19 20:01 Pain Scale: Adult cm10 10/20 00:30 Pain Scale: Adult pf1 01:00 Pain Scale: Adult pf1 MDM: 01:28 Patient medically screened. kdr 04:12 Data reviewed: vital signs, nurses notes. [facility] 10/19 20:12 Order name: Basic Metabolic Panel; Complete Time: 21:39 [facility] 10/19 20:12 Order name: CBC with Diff; Complete Time: 21:39 [facility] 10/19 20:12 Order name: LFT's; Complete Time: 21:39 [facility] 10/19 20:12 Order name: Magnesium; Complete Time: 21:39 [facility] 10/19 20:12 Order name: NT PRO-BNP; Complete Time: 21:39 [facility] 10/19 20:12 Order name: Troponin HS; Complete Time: 21:39 [facility] 10/19 20:33 Order name: COVID-19 SARS RT PCR; Complete Time: 21:39 rv1 10/19 20:33 Order name: Flu; Complete Time: 22:34 rv1 10/20 00:10 Order name: Troponin High Sensitivity; Complete Time: 01:22 3 10/19 20:12 Order name: XRAY Chest (1 view); Complete Time: 20:57 [facility] 10/19 20:12 Order name: EKG; Complete Time: 20:12 [facility] 10/19 20:12 Order name: Cardiac monitoring; Complete Time: 20:44 [facility] 10/19 20:12 Order name: EKG - Nurse/Tech; Complete Time: 20:28 [facility] 10/19 20:12 Order name: IV Saline Lock; Complete Time: 20:44 [facility] 10/19 20:12 Order name: Labs collected and sent; Complete Time: 20:44 [facility] 10/19 20:12 Order name: O2 Per Protocol; Complete Time: 20:44 [facility] 10/19 20:12 Order name: O2 Sat Monitoring; Complete Time: 20:44 [facility] 10/19 21:42 Order name: Repeat Cardiac Enzymes at: 3 hrs from first draw; Complete Time: 00:40 kdr Administered Medications: 10/19 20:49 Drug: Levalbuterol Inhalation 1.25 mg Route: Inhalation; [facility] 10/20 00:21 Follow up: Response: No adverse reaction; No change in condition [facility] Disposition Summary: 10/20/22 01:28 Discharge Ordered Location: Home kdr Problem: an acute exacerbation kdr Symptoms: have improved kdr Condition: Stable kdr Diagnosis - Chest pain, unspecified kdr Followup: kdr - With: Feliberto Max MD - When: 2 - 3 days - Reason: If symptoms return, Further diagnostic work-up, Recheck today's complaints, Continuance of care, Re-evaluation by your physician Discharge Instructions: - Discharge Summary Sheet kdr - Nonspecific Chest Pain, Adult, [id number] kdr Forms: - Medication Reconciliation Form kdr - Thank You Letter kdr - Patient Portal Instructions kdr - Leadership Thank You Letter kdr Signatures: Dispatcher [employer] Feliberto Rey MD MD kdr Komal Rendon RN RN ll3 Lisa Sharp RN RN cm10
[2022-10-20 01:57] VITALS: TEMP 97.9
[2022-10-20 02:00] VITALS: O2SAT 97
[2022-10-20 02:06] VITALS: BP 132/86
--- NOTE | 2022-10-20 13:56 | EKG ---
Test Date: 2022-10-19 Test Time: 20:05:14 Kettle Worker: RV MEASUREMENT RESULTS: Intervals: Rate: 67 VT: 190 QRSD: 76 QT: 390 QTc: 412 [place]: P: 56 VT: 190 QRS: 73 T: 79 INTERPRETIVE STATEMENTS: Sinus rhythm Normal ECG Compared to ECG 08/31/2022 13:30:38 Sinus arrhythmia no longer present Myocardial infarct finding no longer present Electronically Signed On 10-20-22 13:55:11 CDT by Nishant Perez
== END 2022-10-20 01:36 | disposition home or self-care (01) ==
LOC: ER 19:53
DX: R07.89 Other chest pain (principal); I10 Essential (primary) hypertension; I25.2 Old myocardial infarction; Z95.1 Presence of aortocoronary bypass graft; Z95.818 Presence of other cardiac implants and grafts; Z88.0 Allergy status to penicillin; Z91.041 Radiographic dye allergy status; Z20.822 Contact with and (suspected) exposure to COVID-19
CPT/HCPCS: 93005; 85025; 80048; 36415; 83735; 80076; 84484 ×2; 83880; 87635; 87804 ×2; 71045; 99285; J7614

== ENCOUNTER 2022-12-21 19:56 | Observation (INO) | payer OTHER ==
[2022-12-21 20:38] LABS: Absolute Lymphocytes (CBC) 1.7 K/uL (0.7-4.9); Hematocrit 43.5 % (39.6-49.0); Lymphocytes % 24.1 % (15.3-44.8); MCV 94.7 fL (80-100); MPV 8.7 fL (7.6-11.3); Platelets 182 thou/uL (152-406); RBC Red Blood Cell Count 4.59 M/uL (4.33-5.43)
[2022-12-21] MEDS ORDERED: DIAZEPAM 10 MG/2 ML INJ SYRINGE ONE (20:47)
[2022-12-21] MEDS ORDERED: ASPIRIN 81 MG CHEWABLE TABLET ONE (20:47)
[2022-12-21 21:00] LABS: Potassium 3.7 mEq/L (3.5-5.1); Troponin High Sensitivity 6.2 pg/mL (<58.9)
[2022-12-21] MEDS ORDERED: DIPHENHYDRAMINE 50 MG/ML VIAL ONE (21:04)
--- OUTSIDE RECORDS SUMMARY | 2022-12-21 21:26 | XMS REPORT | Continuity of Care Document ---
:1955 Author Organization [facility] t Address [address] [facility] [address] [place] [address] Care Team Providers Name Role Phone Sharpless Primary Care Physician Jamal Red Attending Clinician Unavailable PABLO ALLEN Attending Clinician Unavailable VERITO BAILEY Attending Clinician Unavailable Pablo Allen DO Attending Clinician LAB90 Attending Clinician Unavailable KEYONA SUAZO Attending Clinician Unavailable KEYONA SUAZO Attending Clinician Unavailable Doctor Unassigned, [place] Attending Clinician Unavailable JD HINES Attending Clinician Unavailable Mahesh Gallardo DO Attending Clinician LUCITA CARBAJAL Attending Clinician Unavailable Tin KNUTSON, Michellengjun Attending Clinician Care, Denny Primary Attending Clinician Unavailable Amrik ERICKSON, Arsen Attending Clinician ARSEN DIXON Attending Clinician Unavailable Crispin SOW Sofia Lois Attending Clinician [phone] Salome KNUTSON, Edin Ovalles Attending Clinician [...] Policy Number Effective Date Expiration Date S fredy FERREIRA MA DUAL 7 [id number] 2022 COMPLETE CAP(HMO 00:00:00 D-SNP OA) [employer] MEDICARE 7 [id number] 2021 [id number] GOLD 00:00:00 PLUS 2021 HUMANA 3 [id number] 2021 00:00:00 MEDICAID OF [place] [id number] 2021 00:00:00 [place] PRIMARY [id number] 2019 CARE 00:00:00 Problems Condition Condition Condition Status Onset Resolution Last Treating Co mments Source Name Details Category Date Date Treatment Clinician Date Mild major Mild major Disease Active Danette silvia depression depression [address] ybold 00:00: 00 PTSD PTSD Disease Active Kaela (post-trau (post-trau 3 Se ybold matic matic 00:00: stress stress 00 disorder) disorder) History of History of Disease Active Danette silvia four four 3 Seybold vessel vessel 00:00: coronary coronary 00 artery artery bypass bypass graft graft Primary Primary Disease Active Kaela hypertensi hypertensi 3 Se ybold on on 00:00: 00 Chronic Chronic Disease Active Kaela pain due pain due 05-03 Seybol d to trauma to trauma 00:00: 00 History of History of Disease Active Dnaette silvia TIAs TIAs 3 Seybold 00:00: 00 CHOLECYSTI CHOLECYST Diagnosis Active 2018-08-17 Memoria TIS ITIS 6-13 09:57:00 l Active 00:00: [place] 08/15/2018 00 [facility] ABDOMINAL Diagnosis Active 2018-08-16 Memoria PAIN ABDOMINAL 6-13 02:35:00 l PAIN 00:00: [place] Active 00 08/15/2018 [facility] BLAYNE-SEROMA BLAYNE-SEROMA Diagnosis Active 2018-06-21 Memoria Active 4-16 10:59:00 l 06/18/2018 00:00: Arsenio freedman [address] CHEST PAIN CHEST Diagnosis Active 2018-06-03 Memoria PAIN 3-31 15:02:00 l Active 00:00: [place] 06/02/2018 [facility] [place] STERNAL STERNAL Diagnosis Active 2018-05-19 Memoria OSTEOMYELI OSTEOMYELI 3-07 06:57:00 l TIS TIS Active 00:00: Arsenio freedman 05/09/2018 00 [facility] [place] M86.61 - M86.61 - Diagnosis Active 2018-04-08 Memoria OTHER OTHER 2-01 13:48:00 l CHRONIC CHRONIC 00:01: [place] OSTEOMYELI OSTEOMYELI 00 TIS, S TIS, S Active 04/05/2018 [facility] ACUTE ACUTE Diagnosis Active 2017-032018-03-07 Mem oria EXACERBATI EXACERBATI 04-30 22:14:00 l ON OF ON OF 00:00: [place] CONGESTIVE CONGESTIVE 00 HEART F HEART F Active 02/27/2018 [facility] [place] SHORTNESS SHORTNESS Diagnosis Active 2017-032018-02-28 Memoria OF BREATH OF BREATH 04-30 03:46:00 l Active 00:00: Arsenio n [address] DIFFICULTY DIFFICULT Diagnosis Active 2017-032018-02-27 Memoria BREATHING Y 04-30 23:09:00 l BREATHING 00:00: [place] Active 02/27/2018 [facility] SOB, SOB, Diagnosis Active 2017-032018-02-28 Mem oria TACHYCARDI TACHYCARDI 04-16 22:16:00 l A A Active 00:00: [place] 02/13/2018 00 [facility] [place] Dyspnea Dyspnea Disease Active 2017-03 Univers 1-12 ity of 00:00: [place] [address] [facility] Other Other Disease Active 2017-03 Univers chest pain chest pain 1-08 it y of 00:00: [place] [address] [facility] Cellulitis Cellulitis Disease Active 2017-03 U nivers of chest of chest 1-07 ity of wall wall 00:00: [place] [address] [facility] Branch Elevated Elevated Disease Active 2017-03 Unive rs total total 0-10 ity of protein protein 00:00: [place] [facility] GELY GELY Disease Active Univers (obstructi (obstructi 9-17 it y of ve sleep ve sleep 00:00: [place] apnea) apnea) 00 Medical Branch Acute on Acute on Disease Active Unive rs chronic chronic 9-17 ity of diastolic diastolic 00:00[place] congest[place] congestive 00 Me dical heart heart Branch failure failure Weakness Weakness Disease Active Unive rs 9-16 ity of 00:00: [place] [address] [facility] SOB SOB Disease Active Univers (shortness (shortness 9-10 it y of of breath[place] of breath[place] 00:[place] [facility] [place] Patent Patent Disease Active Univers foramen foramen 9-06 ity of ovale ovale 00:00: [place] [address] [facility] Branch S/P CABG x S/P CABG x Disease Active U nivers 4 4 8-31 ity of 00:00: [place] 00 [facility] Branch Coronary Coronary Disease Active Overview: Un jody artery artery 8-30 Added ity of disease of disease of 00:00: automatic [place] seminole seminole 00 ally from Medical artery of artery of request [facility] for heart with heart with surgery stable stable [id number] angina angina pectoris pectoris Coronary Coronary Disease Active Overview: Un jody artery artery 8-30 Formattin ity of disease of disease of 00:00: g of this [place] seminole seminole 00 note Medical artery of artery of might be Br anch seminole seminole different heart with heart with from the stable stable original. angina angina Added pectoris pectoris automatic ally from request for surgery [id number] Coronary Coronary Disease Active Overview: Un jody artery artery 8-24 Added ity of disease disease 00:00: automatic [place] involving involving 00 ally from M edical seminole seminole request Branch coronary coronary for artery of artery of surgery seminole seminole [id number] heart with heart with other form other form of angina of angina pectoris pectoris Coronary Coronary Disease Active Overview: Un jody artery artery 8-24 Formattin ity of disease disease 00:00: g of this [place] involving involving 00 note Medi tenzin seminole seminole might be Branch coronary coronary different artery of artery of from the seminole seminole original. heart with heart with Added other form other form automatic of angina of angina ally from pectoris pectoris request for surgery [id number] Umbilical Umbilical Disease Active Overview: Univers hernia hernia 6-05 Formattin ity of without without 00:00: g of this [place] obstructio obstructio 00 note Me dical n and n and might be Branch without without different gangrene gangrene from the original. Added automatic ally from request for surgery [id number] Prediabete Prediabete Disease Active U nivers s [...] on on 00:00: [place] exertion) exertion) 00 [facility] Branch CVA CVA Disease Active [facility] [...] of finding of lung field lung field 10/24/2018 [facility] Infection Infection Problem 2018-10-24 Memoria following following 11:25:49 l a a [place] procedure, procedure, other other surgical surgical site, site, initial initial encounter encounter 10/24/2018 [facility] [place] Localized Localized Problem 2018-10-24 Memoria enlarged enlarged 11:25:49 l lymph lymph [place] nodes nodes 10/24/2018 [facility] Other Other Problem 2018-10-24 Memor ia specified specified 11:25:49 l postproced postproced He antonio ural ural states states 10/24/2018 [facility] Presence Presence Problem 2018-10-24 Memoria of of 11:25:49 l aortocoron aortocoron He rmann juana bypass juana bypass graft graft 10/24/2018 Bradley Drew [facility] [place] Fluid Fluid Problem 2018-09-17 Memor ia overload, overload, 12:21:37 l unspecifie unspecifie He rmann d d 09/17/2018 [facility] Erythemato Erythemat Problem 2018-09-17 Memoria us ous 12:21:37 l condition, condition, He rmann unspecifie unspecifie d d 09/17/2018 [facility] Allergy Allergy Problem 2018-09-17 Me moria status to status to 12:21:37 l penicillin penicillin He rmann 09/17/2018 [facility] Other long Other Problem 2018-09-17 M emoria term assisted 12:21:37 l (current) (current) Herm ladi drug drug therapy therapy 09/17/2018 [facility] Family Family Problem 2018-09-17 Kuldeep teto history of history of 12:21:37 l ischemic ischemic Arsenio freedman heart heart disease disease and other and other diseases 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 09/17/2018 [facility] Shortness Shortness Problem 2018-09-18 Memoria of breath of breath 14:04:56 l 09/18/2018 Arsenio freedman [facility] Unspecifie Unspecifi Problem 2018-09-18 Memoria d severe ed severe 14:04:56 l protein-ca protein-ca He antonio fely fely malnutriti malnutriti on on 09/18/2018 [facility] [place] Atelectasi Atelectas Problem 2018-09-18 Memoria s is 14:04:56 l 09/18/2018 Arsenio freedman [facility] [place] Osteomyeli Osteomyel Problem 2018-09-18 Memoria tis, itis, 14:04:56 l unspecifie unspecifie He rmann d d 09/18/2018 [facility] [place] Cellulitis Problem 2018-09-18 M emoria of chest Cellulitis 14:04:56 l wall of chest [place] wall 09/18/2018 [facility] [place] Acute on Acute on Problem 2018-09-18 Memoria chronic chronic 14:04:56 l combined combined Arsenio n systolic systolic (congestiv (congestiv e) and e) and diastolic diastolic (congestiv (congestiv e) heart e) heart failure failure 09/18/2018 [facility] [place] Frequency Frequency Problem 2018-09-18 Memoria of of 14:04:56 l micturitio micturitio He rmann n n 09/18/2018 [facility] [place] 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-18 Memoria rotic erotic 14:04:56 l heart heart [place] disease of disease of seminole seminole coronary coronary artery artery without without angina angina pectoris pectoris 09/18/2018 Bradley Drew [facility] Localized Localized Problem 2018-09-18 Memoria edema edema 14:04:56 l 09/18/2018 Arsenio freedman [facility] [place] Hyperlipid Hyperlipi Problem 2018-09-18 Memoria emia, demia, 14:04:56 l unspecifie unspecifie He rmann d d 09/18/2018 [facility] [place] Ischemic Ischemic Problem 2018-09-18 Memoria cardiomyop cardiomyop 14:04:56 l athy athy [place] 09/18/2018 [facility] [place] Personal Personal Problem 2018-09-18 Memoria history of history of 14:04:56 l nicotine nicotine Arsenio n dependence dependence 9 Bradley Drew [facility] Radiograph Radiograp Problem 2018-09-18 Memoria ic dye hic dye 14:04:56 l allergy allergy [place] status status 09/18/2018 Bradley Oliveros [facility] Body mass Body mass Problem 2018-09-18 Memoria index index 14:04:56 l (BMI) (BMI) [place] 27.0-27.9, 27.0-27.9, adult adult 09/18/2018 [facility] [place] Acute Acute Problem 2018-09-10 Memor ia posthemorr posthemorr 14:31:25 l hagic hagic [place] anemia anemia 09/10/2018 [facility] [place] Essential Essential Problem 2018-09-10 Memoria (primary) (primary) 14:31:25 l hypertensi hypertensi He rmann on on 09/10/2018 [facility] [place] Major Major Problem 2018-09-10 Memor ia depressive depressive 14:31:25 l disorder, disorder, Herm ladi single single episode, episode, unspecifie unspecifie d d 09/10/2018 [facility] [place] Anxiety Anxiety Problem 2018-09-10 Me moria disorder, disorder, 14:31:25 l unspecifie unspecifie He rmann d d 09/10/2018 [facility] [place] Insomnia, Insomnia, Problem 2018-09-10 Memoria unspecifie unspecifie 14:31:25 l d d [place] 09/10/2018 [facility] [place] Constipati Constipat Problem 2018-09-10 Memoria on, ion, 14:31:25 l unspecifie unspecifie He rmann d d 09/10/2018 [facility] [place] Coronary Coronary Problem Active 2018-10-24 Memoria arterioscl arterioscl 11:25:49 l erosis erosis [place] (disorder) (disorder) Active Problem 10/24/2018 [facility], [facility] [place] ILLNESS, ILLNESS, Diagnosis Active 2018-05-19 Memoria UNSPECIFIE UNSPECIFIE 06:57:00 l D D Active [place] [facility] [place] POSTPROC POSTPROC Diagnosis Active 2018-06-03 Memoria SEROMA OF SEROMA OF 15:02:00 l SKIN, SKIN, [place] SUBCU SUBCU FOLLOWING FOLLOWING Active [facility] [place] ACUTE ACUTE Diagnosis Active 2018-08-17 Me moria CHOLECYSTI CHOLECYSTI 09:57:00 l TIS TIS Active Arsenio freedman [facility] HEART HEART Diagnosis Active 2018-03-07 Mem oria FAILURE, FAILURE, 22:14:00 l UNSPECIFIE UNSPECIFIE He rmann D D Active [facility] [place] History of Past Illness Condition Condition Condition Status Onset Resolution Last Treating Co mments Source Name Details Category Date Date Treatment Clinician Date Other Other Problem 2018-2018-10-24 2018-10-24 M emoria acute acute 2-06 11:25:49 11:25:49 l osteomyeli osteomyeli 06:03: He antonio tis, other tis, other 01 site site 04/10/2018 10/24/2018 ZAHRA [facility] Hypertensi Hypertens Problem 2018-0 2018-09-18 2018-09-18 Memoria ve heart shelia heart 06-26 14:04:56 14:04:56 l disease disease 05:04: [place] with heart with heart 24 failure failure 06/26/2018 09/18/2018 [facility] [place] [place] Allergies, Adverse Reactions, Alerts Allergy Allergy Status Severity Reaction(s) Onset Inactive Treating Comm ents Source Name Type Date Date Clinician Penicill DA Active SV SWELLING 0 [facility] ins 06-24 Clear 00:00: [place] 00 [facility] iodine DA Active [facility] SWELL[facility] 06-24 Clear 00:00: [place] 00 [facility] Iodine Propensi Active Itching Kaela ty to [...] penicill Active Memori a ins ins l [place] penicill penicill Active Memori a in<sup>1 in<sup>1 l </sup> </sup> [place] iodine<s iodine<s Active Memori a up>2</montoya up>2</montoya l p> p> [place] NKFA NKFA Active Memoria l [place] Family History Family Member Diagnosis Comments Start Date Stop Date Source Natural father Stroke [facility] Natural father Diabetes [facility] Natural father Hypertension [facility] Natural mother Diabetes [facility] Natural mother Hypertension [facility] Social History Social Habit Start Date Stop Date Quantity Comments Source History of tobacco Cigarette Smoker [facility] use [facility] History SDOH Kaela Raymondo ld Alcohol Frequency History SDOH Kaela tavera Alcohol Std Drinks History SDOH Kaela Raymondo ld Alcohol Binge Exposure to Not sure [facility] of SARS-CoV-2 (event) [facility] Tobacco use and 2021-05-03 2021-05-03 Smokeless Kaela Se ybold exposure 00:00:00 00:00:00 tobacco non-user Alcohol Comment 2021-05-03 2021-05-03 rarely Kaela Se ybjessica 00:00:00 00:00:00 Education 2021-05-03 2021-05-03 15 Kaela Johnson 00:00:00 00:00:00 Cigarette 2021-05-03 2021-05-03 Kaela Johnson pack-years 00:00:00 00:00:00 Social History 2018-08-16 2018-08-16 [facility] 07:52:22 07:52:22 Alcohol intake 2015-08-28 2015-08-28 Current [facility] 00:00:00 00:00:00 non-drinker of Medical Ce nter alcohol (finding) Cigarettes smoked 2015-08-27 2015-08-27 [facility] current (pack per 00:00:00 00:00:00 [facility] day) - Reported Sex Ass[birth year] At [birth year] [facility] 00:00:00 00:00:00 [facility] Smoking Status Start Date Stop Date Source Ex-smoker 2021-05-03 00:00:00 2021-05-03 00:00:00 Kaela echols Smokes tobacco daily 2015-08-27 00:00:00 [facility] Medications Ordered Filled Start Stop Current Ordering Indication Dosage Frequency Signature Comments Components Source Medication Medication Date Date Medication? Clinician (SIG) Name Name Lisinopril 2021- No 10mg Take 10 mg Kaela 10 MG oral 3-30 03-30 by mouth Seyb old Tablet 10:39: 00:00 daily 21 :00 Tramadol 0 Yes [id number] 50mg QD Take 1 Ke lsey HCl 50 MG 3-30 tablet (50 Seyb old oral Tablet 00:00: mg total) 00 by mouth daily as needed for pain Lisinopril Yes 10mg Take 10 mg K elsey 10 MG oral 3-01 by mouth Seybo ld Tablet 14:00: daily 07 Escitalopra 0 Yes [id number] 10mg Take 1 Kaela m Oxalate 3-01 tablet (10 Seyb old (Lexapro) 00:00: mg total) 10 MG oral 00 by mouth Tablet daily Aspirin 81 0 Yes [id number] 81mg Take 1 Kaela MG oral 3-01 tablet (81 Seybol d Chewable 00:00: mg total) Tablet 00 by mouth daily Tramadol Yes [id number] 50mg Q24H Take 1 Ke lsey HCl 50 MG 3-01 tablet (50 Seyb old oral Tablet 00:00: mg total) 00 by mouth daily as needed for pain Escitalopra Yes [id number] 10mg Take 1 Kaela m Oxalate 3-01 tablet (10 Seyb old (Lexapro) 00:00: mg total) 10 MG oral 00 by mouth Tablet daily Aspirin 81 0 Yes [id number] 81mg Take 1 Kaela MG oral 3-01 tablet (81 Seybol d Chewable 00:00: mg total) Tablet 00 by mouth daily Tramadol 0 202- No [id number] 50mg QD Take 1 K elsey HCl 50 MG 3-01 03-30 tablet (50 Sey bold oral Tablet 00:00: 00:00 mg total) 00 :00 by mouth daily as needed for pain lisinopriL 2019-03 Yes 10mg Take 10 mg U nivers 10 mg 1-09 by mouth ity of tablet 19:16: daily. [address] lisinopriL 2019-03 Yes 10mg Take 10 mg U nivers 10 mg 1-09 by mouth ity of tablet 19:16: daily. [address] lisinopriL 2019-03 Yes 10mg Take 10 mg U nivers 10 mg 1-09 by mouth ity of tablet 19:16: daily. [address] lisinopriL 2020-1 Yes 10mg Take 10 mg U nivers 10 mg 1-09 by mouth ity of tablet 19:16: daily. [place] [address] [facility] Branch lisinopriL 2019- Yes 10mg Take 10 mg U nivers 10 mg 1-09 by mouth ity of tablet 19:16: daily. [place] [address] [facility] Branch lisinopriL 2019-03 Yes 10mg Take 10 mg U nivers 10 mg 1-09 by mouth ity of tablet 13:16: daily. [place] [address] [facility] Branch atorvastati 2019-03 Yes [id number] 40mg Take 1 Univers n 40 mg 1-09 tablet by ity of tablet 00:00: mouth [place] 00 daily. Medical Branch aspirin 81 2019-03 Yes [id number] 81mg Take 1 Univers mg EC 1-09 tablet by ity of tablet 00:00: mouth [place] 00 daily. Medical Branch atorvastati 2019-03 Yes [id number] 40mg Take 1 Univers n 40 mg 1-09 tablet by ity of tablet 00:00: mouth [place] 00 daily. Medical Branch aspirin 81 2019-03 Yes [id number] 81mg Take 1 Univers mg EC 1-09 tablet by ity of tablet 00:00: mouth [place] 00 daily. Medical Branch atorvastati 2019-03 Yes [id number] 40mg Take 1 Univers n 40 mg 1-09 tablet by ity of tablet 00:00: mouth [place] 00 daily. Medical Branch aspirin 81 2019-03 Yes [id number] 81mg Take 1 Univers mg EC 1-09 tablet by ity of tablet 00:00: mouth [place] 00 daily. Medical Branch atorvastati 2019- Yes [id number] 40mg Take 1 Univers n 40 mg 1-09 tablet by ity of tablet 00:00: mouth [place] 00 daily. Medical Branch aspirin 81 2019-03 Yes [id number] 81mg Take 1 Univers mg EC 1-09 tablet by ity of tablet 00:00: mouth [place] 00 daily. Medical Branch atorvastati 2019-03 Yes [id number] 40mg Take 1 Univers n 40 mg 1-09 tablet by ity of tablet 00:00: mouth [place] 00 daily. Medical Branch aspirin 81 2019-03 Yes [id number] 81mg Take 1 Univers mg EC 1-09 tablet by ity of tablet 00:00: mouth [place] 00 daily. Medical Branch atorvastati 2019-03 Yes [id number] 40mg Take 1 Univers n 40 mg 1-09 tablet by ity of tablet 00:00: mouth [place] 00 daily. Medical Branch aspirin 81 2020-1 Yes [id number] 81mg Take 1 Univers mg EC 1-09 tablet by ity of tablet 00:00: mouth [place] 00 daily. Medical Branch metoprolol 2020-0 Yes [id number] 25mg Take 1 U nivers succinate 9-10 tablet by ity o f XL 25 mg 24 00:00: mouth [place] hr tablet 00 daily. Medical Branch traZODone 2020-0 Yes [id number] 50mg Take 1 Un jody 50 mg 9-10 tablet by ity of tablet 00:00: mouth at [place] 00 bedtime. Medical Branch cyclobenzap 2020-0 Yes [id number] 10mg Take 1 Univers rine 10 mg 9-10 tablet by ity of tablet 00:00: mouth 3 00 (three) Medical times Branch daily as needed for Muscle Spasms. naproxen 2020-0 Yes [id number] 500mg Take 1 U nivers 500 mg 9-10 tablet by ity of tablet 00:00: mouth 2 (two) Medical times Branch daily with meals. buPROPion 2020-0 Yes [id number] 150mg Take 1 U nivers SR 9-10 tablet by ity of (WELLBUTRIN 00:00: mouth 2 Oni as SR) 150 mg 00 (two) Medical SR tablet times Branch daily. metoprolol 2020-0 Yes [id number] 25mg Take 1 U nivers succinate 9-10 tablet by ity o f XL 25 mg 24 00:00: mouth [place] hr tablet 00 daily. Medical Branch traZODone 2020-0 Yes [id number] 50mg Take 1 Un jody 50 mg 9-10 tablet by ity of tablet 00:00: mouth at [place] 00 bedtime. Medical Branch cyclobenzap 2020-0 Yes [id number] 10mg Take 1 Univers rine 10 mg 9-10 tablet by ity of tablet 00:00: mouth 3 (three) Medical times Branch daily as needed for Muscle Spasms. naproxen 2020-0 Yes [id number] 500mg Take 1 U nivers 500 mg 9-10 tablet by ity of tablet 00:00: mouth 2 [place] 00 (two) Medical times Branch daily with meals. buPROPion 2020-0 Yes [id number] 150mg Take 1 U nivers SR 9-10 tablet by ity of (WELLBUTRIN 00:00: mouth 2 Oni as SR) 150 mg 00 (two) Medical SR tablet times Branch daily. metoprolol 2020-0 Yes [id number] 25mg Take 1 U nivers succinate 9-10 tablet by ity o f XL 25 mg 24 00:00: mouth [place] hr tablet 00 daily. Medical Branch traZODone 2020-0 Yes [id number] 50mg Take 1 Un jody 50 mg 9-10 tablet by ity of tablet 00:00: mouth at [place] 00 bedtime. Medical Branch cyclobenzap 2020-0 Yes [id number] 10mg Take 1 Univers rine 10 mg 9-10 tablet by ity of tablet 00:00: mouth 3 [place] 00 (three) Medical times Branch daily as needed for Muscle Spasms. naproxen 2019-0 Yes [id number] 500mg Take 1 U nivers 500 mg 9-10 tablet by ity of tablet 00:00: mouth 2 [place] 00 (two) Medical times Branch daily with meals. buPROPion 2020-0 Yes [id number] 150mg Take 1 U nivers SR 9-10 tablet by ity of (WELLBUTRIN 00:00: mouth 2 Oni as SR) 150 mg 00 (two) Medical SR tablet times Branch daily. traZODone 2020-0 Yes [id number] 50mg Take 1 Un jody 50 mg 9-10 tablet by ity of tablet 00:00: mouth at [place] 00 bedtime. Medical Branch cyclobenzap 2019-0 Yes [id number] 10mg Take 1 Univers rine 10 mg 9-10 tablet by ity of tablet 00:00: mouth 3 [place] 00 (three) Medical times Branch daily as needed for Muscle Spasms. traZODone 2020-0 Yes [id number] 50mg Take 1 Un jody 50 mg 9-10 tablet by ity of tablet 00:00: mouth at [place] 00 bedtime. Medical Branch cyclobenzap 2020-0 Yes [id number] 10mg Take 1 Univers rine 10 mg 9-10 tablet by ity of tablet 00:00: mouth 3 [place] 00 (three) Medical times Branch daily as needed for Muscle Spasms. traZODone 2020-0 Yes [id number] 50mg Take 1 Un jody 50 mg 9-10 tablet by ity of tablet 00:00: mouth at [place] 00 bedtime. Medical Branch cyclobenzap 2020-0 Yes [id number] 10mg Take 1 Univers rine 10 mg 9-10 tablet by ity of tablet 00:00: mouth 3 [place] (three) Medical times Branch daily as needed for Muscle Spasms. traZODone 2020-0 Yes [id number] 50mg Take 1 Un jody 50 mg 9-10 tablet by ity of tablet 00:00: mouth at [place] 00 bedtime. Medical Branch cyclobenzap 2020-0 Yes [id number] 10mg Take 1 Univers rine 10 mg 9-10 tablet by ity of tablet 00:00: mouth 3 [place] (three) Medical times Branch daily as needed for Muscle Spasms. traZODone 2020-0 Yes [id number] 50mg Take 1 Un jody 50 mg 9-10 tablet by ity of tablet 00:00: mouth at [place] 00 bedtime. Medical Branch cyclobenzap 2020-0 Yes [id number] 10mg Take 1 Univers rine 10 mg 9-10 tablet by ity of tablet 00:00: mouth 3 [place] (three) Medical times Branch daily as needed for Muscle Spasms. traZODone 2020-0 Yes [id number] 50mg Take 1 Un jody 50 mg 9-10 tablet by ity of tablet 00:00: mouth at [place] 00 bedtime. Medical Branch cyclobenzap 2020-0 Yes [id number] 10mg Take 1 [facility] rine 10 mg 9-10 tablet by ity of tablet 00:00: mouth 3 [place] (three) Medical times Branch daily as needed for Muscle Spasms. metoprolol 2020-0 Yes [id number] 25mg Take 1 U nivers succinate 9-10 tablet by ity o f XL 25 mg 24 00:00: mouth [place] hr tablet 00 daily. Medical Branch traZODone 2020-0 Yes [id number] 50mg Take 1 Un jody 50 mg 9-10 tablet by ity of tablet 00:00: mouth at [place] 00 bedtime. Medical Branch cyclobenzap 2020-0 Yes [id number] 10mg Take 1 [facility] rine 10 mg 9-10 tablet by ity of tablet 00:00: mouth 3 [place] 00 (three) Medical times Branch daily as needed for Muscle Spasms. naproxen 2020-0 Yes [id number] 500mg Take 1 U nivers 500 mg 9-10 tablet by ity of tablet 00:00: mouth 2 [place] (two) Medical times Branch daily with meals. buPROPion 2020-0 Yes [id number] 150mg Take 1 U nivers SR 9-10 tablet by ity of (WELLBUTRIN 00:00: mouth 2 [place] SR) 150 mg 00 (two) Medical SR tablet times Branch daily. metoprolol 2019-0 Yes [id number] 25mg Take 1 U nivers succinate 9-10 tablet by ity o f XL 25 mg 24 00:00: mouth [place] hr tablet 00 daily. Medical Branch traZODone 2019-0 Yes [id number] 50mg Take 1 Un jody 50 mg 9-10 tablet by ity of tablet 00:00: mouth at [place] 00 bedtime. Medical Branch cyclobenzap 2019-0 Yes [id number] 10mg Take 1 [facility] rine 10 mg 9-10 tablet by ity of tablet 00:00: mouth 3 [place] 00 (three) Medical times Branch daily as needed for Muscle Spasms. naproxen 2019-0 Yes [id number] 500mg Take 1 U nivers 500 mg 9-10 tablet by ity of tablet 00:00: mouth 2 [place] 00 (two) Medical times Branch daily with meals. buPROPion 2019-0 Yes [id number] 150mg Take 1 U nivers SR 9-10 tablet by ity of (WELLBUTRIN 00:00: mouth 2 [place] SR) 150 mg 00 (two) Medical SR tablet times Branch daily. metoprolol 2020- No [id number] 25mg Take 1 [facility] succinate 9-10 11-09 tablet by ity of XL 25 mg 24 00:00: 00:00 mouth [place] hr tablet 00 :00 daily. Medical [facility] naproxen 2019-0 2020- No [id number] 500mg Take 1 [facility] 500 mg 9-10 11-09 tablet by ity of tablet 00:00: 00:00 mouth 2 [place] 00 :00 (two) Medical times Branch daily with meals. buPROPion 2019-0 2020- No [id number] 150mg Take 1 [facility] SR 9-10 11-09 tablet by ity of (WELLBUTRIN 00:00: 00:00 mouth 2 [place] SR) 150 mg 00 :00 (two) Medical SR tablet times Branch daily. metoprolol 2019-0 2020- No [id number] 25mg Take 1 [facility] succinate 9-10 11-09 tablet by ity of XL 25 mg 24 00:00: 00:00 mouth [place] hr tablet 00 :00 daily. Medical [facility] naproxen 2019- No [id number] 500mg Take 1 [facility] 500 mg 9-10 11-09 tablet by ity of tablet 00:00: 00:00 mouth 2 [place] 00 :00 (two) Medical times Branch daily with meals. buPROPion 2019- No [id number] 150mg Take 1 [facility] SR 9-10 11-09 tablet by ity of (WELLBUTRIN 00:00: 00:00 mouth 2 [place] SR) 150 mg 00 :00 (two) Medical SR tablet times Branch daily. metoprolol 2019- No [id number] 25mg Take 1 [facility] succinate 9-10 11- tablet by ity of XL 25 mg 24 00:00: 00:00 mouth [place] hr tablet 00 :00 daily. [facility] naproxen 2019- No [id number] 500mg Take 1 [facility] 500 mg 9-12 13- tablet by ity of tablet 00:00: 00:00 mouth 2 [place] 00 :00 (two) Medical times Branch daily with meals. buPROPion 2019- No [id number] 150mg Take 1 [facility] SR 9-10 11-09 tablet by ity of (WELLBUTRIN 00:00: 00:00 mouth 2 [place] SR) 150 mg 00 :00 (two) Medical SR tablet times Branch daily. TRAZODONE 2018-03 Yes [id number] TAKE THREE [facility] 50 mg 1-18 TABLETS BY ity of tablet 00:00: MOUTH AT [place] 00 [facility] TRAZODONE 2018-03 Yes [id number] TAKE THREE [facility] 50 mg 1-18 TABLETS BY ity of tablet 00:00: MOUTH AT [place] 00 [facility] TRAZODONE 2018-03 2020- No [id number] TAKE THREE [facility] 50 mg 1-18 09-10 TABLETS BY ity of tablet 00:00: 00:00 MOUTH AT [place] 00 :00 [facility] TRAZODONE 2018-03 2020- No [id number] TAKE THREE [facility] 50 mg 1-18 09-10 TABLETS BY ity of tablet 00:00: 00:00 MOUTH AT [place] 00 :00 [facility] metoprolol Yes 25mg Take 1 Unive rs succinate 7-02 tablet by ity o f XL 25 mg 24 00:00: mouth [place] hr tablet 00 daily. Medical Branch metoprolol Yes 25mg Take 1 Unive rs succinate 7- tablet by ity o f XL 25 mg 24 00:00: mouth [place] hr tablet 00 daily. Medical Branch metoprolol 2020- No 25mg Take 1 Univ ers succinate 7- 09-10 tablet by ity of XL 25 mg 24 00:00: 00:00 mouth [place] hr tablet 00 :00 daily. Medical Branch metoprolol 2019- No 25mg Take 1 Univ ers succinate 7- 09-10 tablet by ity of XL 25 mg 24 00:00: 00:00 mouth [place] hr tablet 00 :00 daily. Medical [facility] Docusate No Notes: [facility] 6-14 (Same as: l 14:00: Colace) [place] 00 (Do Not Crush) Docusate No Notes: Memoria 6-14 (Same as: l 14:00: Colace) [place] 00 (Do Not Crush) Docusate No Notes: Memoria 6-14 (Same as: l 14:00: Colace) [place] 00 (Do Not Crush) Docusate No Notes: Memoria 6-14 (Same as: l 14:00: Colace) [place] 00 (Do Not Crush) Docusate No Notes: [...] teto 6-14 acetaminop l 11:00: hen 4000 [place] 00 mg/day (4 gm/day). (Same as: Tylenol Extra Strength) Tylenol No Notes: Max Kuldeep teto 6-14 acetaminop l 11:00: hen 4000 [place] 00 mg/day (4 gm/day). (Same as: Tylenol Extra Strength) Tylenol No Notes: Max Kuldeep teto 6-14 acetaminop l 11:00: hen 4000 [place] 00 mg/day (4 gm/day). (Same as: Tylenol Extra Strength) Lovenox No Notes: Memoria 6-14 (Same as: l 09:00: Lovenox) [place] Lovenox No Notes: [facility]oria 6-14 (Same as: l 09:00: Lovenox) [place] Lovenox No Notes: [facility] 6-14 (Same as: l 09:00: Lovenox) [place] Lovenox No Notes: [facility] 6-14 (Same as: l 09:00: Lovenox) [place] Lovenox No Notes: Memoria 6-14 (Same as: l 09:00: Lovenox) [place] 00 Isolyte S No Notes: Memori a [...] 08-16 Route: IM, l 08:13: Drug form: [place] 00 PDR/INJ, PRN, Dosing Weight 81.818, kg, PRN Blood Glucose Results, Start date: 08/16/18 3:13:00 CDT, Duration: 30 day, Stop date: 09/15/18 3:12:00 CDT Dextrose No 12.5 gm, Memor ia 50% Syringe 08-16 25 mL, l 08:13: Route: [place] 00 [...] Syringe 6-14 25 mL, l 08:13: Route: [place] 00 IVP, Drug Form: INJ, Dosing Weight 81.818, kg, PRN, PRN Blood Glucose Results, Start date: 08/16/18 3:13:00 CDT, Duration: 30 day, Stop date: 09/15/18 3:12:00 CDT Ondansetron 2019-0 No Notes: Kuldeep teto 6-14 (Same as: l 08:13: Janes) [place] MEDICATION WASTE Product Size: 4 mg Product Wasted: _0__ mg Glucagon 2019-0 No 1 mg, Memoria 6-14 Route: IM, l 08:13: Drug form: [place] 00 PDR/INJ, PRN, Dosing Weight 81.818, kg, [...] 6-14 Route: IM, l 08:13: Drug form: [place] 00 PDR/INJ, PRN, Dosing Weight 81.818, kg, [...] Memoria 6-14 Route: l 07:11: IVP, ONCE, [place] 00 Dosing Weight 81.818, kg, Priority: STAT, Start date: 08/16/18 2:11:00 CDT, Stop date: 08/16/18 2:11:00 CDT Zofran 2019-0 No 4 mg, Memoria 6-14 Route: l 07:11: IVP, Drug [place] 00 form: INJ, ONCE, Dosing Weight 81.818, kg, Priority: STAT, Start date: 08/16/18 2:11:00 CDT, Stop date: 08/16/18 2:11:00 CDT Morphine 2019-0 No 4 mg, Memoria 6-14 Route: l 07:11: IVP, ONCE, [place] 00 Dosing Weight 81.818, kg, Priority: STAT, [...] teto 4-19 (Same as: l 18:35: Vibramycin [place] ) Doxycycline Yes Notes: Kuldeep teto 4-19 [...] Oral Tablet 00 atorvastati No Notes: Kuldeep tteo n 4-02 (Same as: l 02:00: Lipitor) [place] Trazodone No Notes: Memori a Hydrochlori 4-02 (Same As: l de 50 MG 02:00: Desyrel) [place] nn Oral Tablet 00 atorvastati No Notes: Kuldeep teto n 4-02 (Same as: l 02:00: Lipitor) Trazodone No Notes: Memori a Hydrochlori 4-02 (Same As: l de 50 MG 02:00: Desyrel) [place] nn Oral Tablet atorvastati No Notes: Kuldeep teto n 4-02 (Same as: l 02:00: Lipitor) Trazodone No Notes: Memori a Hydrochlori 4-02 (Same As: l de 50 MG 02:00: Desyrel) [place] nn Oral Tablet atorvastati No Notes: Kuldeep teto n 4-02 (Same as: l 02:00: Lipitor) Trazodone No Notes: Memori a Hydrochlori 4-02 (Same As: l de 50 MG 02:00: Desyrel) [place] nn Oral Tablet atorvastati No Notes: Kuldeep teto n 4-02 (Same as: l 02:00: Lipitor) doxycycline Yes 100 mg = 1 Memoria hyclate 100 4-01 tab, PO, l MG Oral 20:58: Q12H, X 14 Herm ladi Tablet 00 day, # 28 tab, 0 Refill(s), Pharmacy: [facility] [id number] doxycycline Yes 100 mg = 1 Memoria hyclate 100 4-01 tab, PO, l MG Oral 20:58: Q12H, X 14 [place] ladi Tablet 00 day, # 28 tab, 0 Refill(s), Pharmacy: [facility] [place] [id number] doxycycline Yes 100 mg = 1 Memoria hyclate 100 4-01 tab, PO, l MG Oral 20:58: Q12H, X 14 Herm ladi Tablet 00 day, # 28 tab, 0 Refill(s), Pharmacy: [place] [id number] doxycycline Yes 100 mg = 1 Memoria hyclate 100 4-01 tab, PO, l MG Oral 20:58: Q12H, X 14 Herm ladi Tablet 00 day, # 28 tab, 0 Refill(s), Pharmacy: [facility] [place] [id number] doxycycline Yes 100 mg = 1 Memoria hyclate 100 4-01 tab, PO, l MG Oral 20:58: Q12H, X 14 Herm ladi Tablet 00 day, # 28 tab, 0 Refill(s), Pharmacy: [facility] [id number] meropenem No Notes: Memori a 06-03 Same as l 18:00: Merrem [place] 00 MEDICATION WASTE Product Size: 500 mg Product Wasted: ___ mg meropenem No Notes: Memori a 06-03 Same as l 18:00: Merrem [place] 00 MEDICATION WASTE Product Size: 500 mg Product Wasted: ___ mg meropenem No Notes: Memori a 06-03 Same as l 18:00: Merrem [place] 00 MEDICATION WASTE Product Size: 500 mg Product Wasted: ___ mg meropenem No Notes: Memori a 06-03 Same as l 18:00: Merrem [place] 00 MEDICATION WASTE Product Size: 500 mg Product Wasted: ___ mg meropenem No Notes: Memori a 06-03 Same as l 18:00: Merrem [place] 00 MEDICATION WASTE Product Size: 500 mg [...] teto - (Same as: l 15:10: Vibramycin [place] 00 ) Doxycycline No Notes: Kuldeep teto 4- (Same as: l 15:10: Vibramycin [place] 00 ) Doxycycline No Notes: Kuldeep teto 4- (Same as: l 15:10: Vibramycin [place] 00 ) Doxycycline No Notes: Kuldeep teto 4- (Same as: l 15:10: Vibramycin [place] ) Doxycycline No Notes: Kuldeep teto 4- (Same as: l 15:10: Vibramycin [place] 00 ) duloxetine No Notes: Memor ia 06-03 (Same as: l 14:00: Cymbalta) [place] 00 (Do Not Crush) Docusate No Notes: Memoria Sodium 100 06-03 (Same as: l MG Oral 14:00: Colace) [place] Capsule 00 (Do Not [Colace] Crush) clopidogrel No Notes: Kuldeep teto 06-03 (Same As: l 14:00: Plavix) [place] 00 heparin No Notes: Memoria - porcine l 14:00: heparin [place] Buspirone No Notes: Memori a - (Same As: l 14:00: BuSpar) [place] tramadol No Notes: Not Mem oria hydrochlori 06-03 to exceed l de 50 MG 14:00: 400mg/day. Her [place] Oral Tablet 00 (Same As: Ultram) Aspirin 81 No Notes: Do Me moria MG Enteric 06-03 not crush l Coated 14:00: or chew. [place] Tablet 00 (Same As: Ecotrin) Midodrine No Notes: Memori a - (Same l 14:00: as:Proamat [place] 00 ine) metoprolol No Notes: Memor ia extended 06-03 (Same as: l release 14:00: Toprol XL) Herm ladi Do Not Crush Lisinopril No Notes: Memor ia - (Same as: l 14:00: Prinivil, [place] 00 Zestril) duloxetine No Notes: Memor ia 4- (Same as: l 14:00: Cymbalta) [place] 00 (Do Not Crush) Docusate No Notes: Memoria Sodium 100 4-01 (Same as: l MG Oral 14:00: Colace) [place] Capsule 00 (Do Not [Colace] Crush) clopidogrel No Notes: Kuldeep teto 4-01 (Same As: l 14:00: Plavix) [place] 00 heparin No Notes: Memoria 4-01 porcine l 14:00: heparin [place] Buspirone No Notes: Memori a 4-01 (Same As: l 14:00: BuSpar) [place] 00 tramadol No Notes: Not Mem oria hydrochlori 4- to exceed l de 50 MG 14:00: 400mg/day. [place] Oral Tablet 00 (Same As: Ultram) Aspirin 81 No Notes: Do Me moria MG Enteric 4- not crush l Coated 14:00: or chew. [place] Tablet 00 (Same As: Ecotrin) Midodrine No Notes: Memori a 4-01 (Same l 14:00: as:Proamat [place] 00 ine) metoprolol No Notes: Memor ia extended 4-01 (Same as: l release 14:00: Toprol XL) Herm ladi Do Not Crush Lisinopril No Notes: Memor ia 4-01 (Same as: l 14:00: Prinivil, [place] 00 Zestril) duloxetine No Notes: Memor ia 4-01 (Same as: l 14:00: Cymbalta) [place] 00 (Do Not Crush) Docusate No Notes: Memoria Sodium 100 4-01 (Same as: l MG Oral 14:00: Colace) [place] Capsule 00 (Do Not [Colace] Crush) clopidogrel No Notes: Kuldeep teto 4-01 (Same As: l 14:00: Plavix) [place] 00 heparin No Notes: Memoria 4-01 porcine l 14:00: heparin [place] 00 Buspirone No Notes: Memori a 4-01 (Same As: l 14:00: BuSpar) [place] 00 tramadol No Notes: Not Mem oria hydrochlori 4- to exceed l de 50 MG 14:00: 400mg/day. [place] Oral Tablet 00 (Same As: Ultram) Aspirin 81 No Notes: Do Me moria MG Enteric 4- not crush l Coated 14:00: or chew. [place] Tablet 00 (Same As: Ecotrin) Midodrine No Notes: Memori a 4- (Same l 14:00: as:Proamat [place] 00 ine) metoprolol No Notes: Memor ia extended 4- (Same as: l release 14:00: Toprol XL) [place] 00 Do Not Crush Lisinopril No Notes: Memor ia 4- (Same as: l 14:00: Prinivil, [place] 00 Zestril) duloxetine No Notes: Memor ia 4- (Same as: l 14:00: Cymbalta) [place] 00 (Do Not Crush) Docusate No Notes: Memoria Sodium 100 4- (Same as: l MG Oral 14:00: Colace) [place] Capsule 00 (Do Not [Colace] Crush) clopidogrel No Notes: Kuldeep teto 4- (Same As: l 14:00: Plavix) [place] 00 heparin 2018- No Notes: Memoria 4- porcine l 14:00: heparin [place] 00 Buspirone No Notes: Memori a 4- (Same As: l 14:00: BuSpar) [place] 00 tramadol No Notes: Not Mem oria hydrochlori 4- to exceed l de 50 MG 14:00: 400mg/day. [place] Oral Tablet 00 (Same As: Ultram) Aspirin 81 No Notes: Do Me moria MG Enteric 4- not crush l Coated 14:00: or chew. [place] Tablet 00 (Same As: Ecotrin) Midodrine No Notes: Memori a 4-01 (Same l 14:00: as:Proamat [place] 00 ine) metoprolol No Notes: Memor ia extended 4- (Same as: l release 14:00: Toprol XL) [place] 00 Do Not Crush Lisinopril No Notes: Memor ia 4- (Same as: l 14:00: Prinivil, [place] 00 Zestril) tramadol No Notes: Not Mem oria hydrochlori 4- to exceed l de 50 MG 14:00: 400mg/day. [place] Oral Tablet 00 (Same As: Ultram) Aspirin 81 No Notes: Do Me moria MG Enteric 4- not crush l Coated 14:00: or chew. [place] Tablet 00 (Same As: Ecotrin) Midodrine No Notes: Memori a 4- (Same l 14:00: as:Proamat [place] 00 ine) metoprolol No Notes: Memor ia extended 06-03 (Same as: l release 14:00: Toprol XL) [place] 00 Do Not Crush Lisinopril No Notes: Memor ia 4- (Same as: l 14:00: Prinivil, [place] 00 Zestril) duloxetine No Notes: Memor ia 4- (Same as: l 14:00: Cymbalta) [place] 00 (Do Not Crush) Docusate No Notes: Memoria Sodium 100 - (Same as: l MG Oral 14:00: Colace) [place] Capsule 00 (Do Not [Colace] Crush) clopidogrel No Notes: Kuldeep teto 4- (Same As: l 14:00: Plavix) [place] 00 heparin No Notes: Memoria 4- porcine l 14:00: heparin [place] 00 Buspirone No Notes: Memori a 4- [...] teto 4-01 (Same as: l 02:32: Apresoline [place] 00 ) Push over 5 minutes Hydralazine No Notes: Kuldeep teto 4-01 (Same as: l 02:32: Apresoline [place] 00 ) Push over 5 minutes Hydralazine No Notes: Kuldeep teto 4-01 (Same as: l 02:32: Apresoline [place] 00 ) Push over 5 minutes Hydralazine No Notes: Kuldeep teto 4-01 (Same as: l 02:32: Apresoline [place] 00 ) Push over 5 minutes Trazodone No Notes: Memori a 4-01 (Same As: l 02:19: Desyrel) [place] Trazodone No Notes: Memori a 4-01 (Same As: l 02:19: Desyrel) [place] Trazodone No Notes: Memori a 4-01 (Same As: l 02:19: Desyrel) [place] Trazodone No Notes: Memori a 4-01 (Same As: l 02:19: Desyrel) [place] Trazodone No Notes: Memori a 4-01 (Same As: l 02:19: Desyrel) [place] Vancomycin No 2001 mg: Me moria 4- infuse l 00:00: over 2.5 [place] 00 hours For adult patients only: Round to nearest 250 mg per Medical Staff approval MEDICATION WASTE Product Size: 1000 mg Product Wasted: ___ mg cefepime 2019-0 No Notes: Memoria 06-03 (Same As: l 00:00: Maxipime) [place] 00 MEDICATION WASTE Product Size: 1000 mg Product Wasted: ___ mg Vancomycin 2019-0 No 2000 mg: moria 4 infuse l 00:00: over 2.5 [place] 00 hours For adult patients only: Round to nearest 250 mg per Medical Staff approval MEDICATION WASTE Product Size: 1000 mg Product Wasted: ___ mg cefepime 2018-0 No Notes: Memoria 06-03 (Same As: l 00:00: Maxipime) [place] 00 MEDICATION WASTE Product Size: 1000 mg Product Wasted: ___ mg Vancomycin 2019-0 No 2000 mg: moria 06-03 infuse l 00:00: over 2.5 [place] 00 hours For adult patients only: Round to nearest 250 mg per Medical Staff approval MEDICATION WASTE Product Size: 1000 mg Product Wasted: ___ mg cefepime 2018-0 No Notes: Memoria 06-03 (Same As: l 00:00: Maxipime) [place] 00 MEDICATION WASTE Product Size: 1000 mg Product Wasted: ___ mg Vancomycin 2019-0 No 2001 mg: moria 06-03 infuse l 00:00: over 2.5 [place] 00 hours For adult patients only: Round to nearest 250 mg per Medical Staff approval MEDICATION WASTE Product Size: 1000 mg Product Wasted: ___ mg cefepime 2018-0 No Notes: Memoria 06-03 (Same As: l 00:00: Maxipime) [place] 00 MEDICATION WASTE Product Size: 1000 mg Product Wasted: ___ mg Vancomycin 2019-0 No 2000 mg: moria 4 infuse l 00:00: over 2.5 [place] 00 hours For adult patients only: Round to nearest 250 mg per Medical Staff approval MEDICATION WASTE Product Size: 1000 mg Product Wasted: ___ mg cefepime 2018-0 No Notes: Memoria 06-03 (Same As: l 00:00: Maxipime) [place] 00 MEDICATION WASTE Product Size: 1000 mg Product Wasted: ___ mg Docusate Yes 100 mg = 1 Mem oria Sodium 100 3-31 cap, PO, l MG Oral 23:50: Daily [place] Capsule 00 [Colace] Docusate Yes 100 mg = 1 Mem oria Sodium 100 3-31 cap, PO, l MG Oral 23:50: Daily [place] Capsule 00 [Colace] Docusate Yes 100 mg = 1 Mem oria Sodium 100 3-31 cap, PO, l MG Oral 23:50: Daily [place] Capsule 00 [Colace] Docusate Yes 100 mg = 1 Mem oria Sodium 100 3-31 cap, PO, l MG Oral 23:50: Daily [place] Capsule 00 [Colace] Docusate Yes 100 mg = 1 Mem oria Sodium 100 3-31 cap, PO, l MG Oral 23:50: Daily [place] Capsule [Colace] Aspirin 81 Yes 81 mg = 1 Me moria MG Enteric 3-31 tab, PO, l Coated 23:49: Daily [place] Tablet midodrine Yes 2.5 mg = 1 Me moria 2.5 mg oral 3-31 tab, PO, l tablet 23:49: Daily [place] Aspirin 81 Yes 81 mg = 1 [...] 3-31 tab, PO, l tablet 23:49: Daily [place] Aspirin 81 Yes 81 mg = 1 Me moria MG Enteric 3-31 tab, PO, l Coated 23:49: Daily [place] Tablet midodrine Yes 2.5 mg = 1 Me moria 2.5 mg oral 3-31 tab, PO, l tablet 23:49: Daily [place] Aspirin 81 Yes 81 mg = 1 Me moria MG Enteric 3-31 tab, PO, l Coated 23:49: Daily [place] Tablet 00 midodrine Yes 2.5 mg = 1 Me moria 2.5 mg oral 3-31 tab, PO, l tablet 23:49: Daily Glucagon No 1 mg, Memoria 3-31 Route: IM, l 22:10: Drug form: [place] [...] M emoria en - not exceed l 22:10: 4 gm/day. (Same [...] 06-02 not exceed l 22:10: 4 gm/day. [place] 00 (Same as: Tylenol) Melatonin No Notes: [...] 06-02 not exceed l 22:10: 4 gm/day. [place] (Same as: Tylenol) Melatonin No Notes: Memori a 3-31 (Same as: l 22:10: Melatonin) Ondansetron No Notes: Kuldeep teto 3-31 (Same as: l 22:10: Zofran) MEDICATION WASTE Product Size: 4 mg Product Wasted: ___ mg Glucagon No 1 mg, Memoria 3 Route: IM, l 22:10: Drug form: [place] [...] 06-02 not exceed l 22:10: 4 gm/day. [place] 00 (Same as: Tylenol) Melatonin No Notes: [...] 06-02 not exceed l 22:10: 4 gm/day. [place] 00 (Same as: Tylenol) Melatonin No Notes: Memori a 3-31 (Same as: l 22:10: Melatonin) Ondansetron No Notes: Kuldeep teto 3-31 (Same as: l 22:10: Janes) [place] MEDICATION WASTE Product Size: 4 mg Product Wasted: ___ mg Trazodone 2019- Yes 50 mg = 1 Mem oria [...] 22:08: Bedtime Arsenio n Oral Tablet Trazodone 2019 Yes 50 mg = 1 Mem oria [...] 22:08: Bedtime [place] n Oral Tablet Trazodone 0 Yes 50 mg = 1 Mem oria [...] 3-31 cap, PO, l delayed 22:06: Daily [place] release 00 capsule Metoprolol 2019-0 Yes 25 mg = 1 Me moria Succinate 3-31 tab, PO, l ER 25 mg 22:06: Daily [place] oral 00 tablet, extended release DULoxetine 2019-0 [...] 22:06: Daily [place] release 00 capsule lisinopril 2019-0 Yes 2.5 mg = Mem oria 5 mg oral 3-19 0.5 tab, l tablet 15:58: PO, Daily, Marcia nn 00 # 30 tab, 0 Refill(s), Pharmacy: [facility] [id number] lisinopril 2019-0 Yes 2.5 mg = Mem oria 5 mg oral 3-19 0.5 tab, l tablet 15:58: PO, Daily, [place] nn 00 # 30 tab, 0 Refill(s), Pharmacy: [place] [id number] lisinopril 2019-0 Yes 2.5 mg = Mem oria 5 mg oral 3-19 0.5 tab, l tablet 15:58: PO, Daily, [place]cia nn 00 # 30 tab, 0 Refill(s), Pharmacy: [place] [id number] lisinopril 2018-0 Yes 2.5 mg = Mem oria 5 mg oral 3-19 0.5 tab, l tablet 15:58: PO, Daily, [place]cia nn 00 # 30 tab, 0 Refill(s), Pharmacy: [facility] [id number] lisinopril 2019-0 Yes 2.5 mg = Mem oria 5 mg oral 3-19 0.5 tab, l tablet 15:58: PO, Daily, Marcia nn 00 # 30 tab, 0 Refill(s), Pharmacy: [facility] [id number] Vancomycin 2018-0 No 2000 mg: Me moria 3-18 infuse l 23:00: over 2.5 [place] 00 hours For adult patients only: Round to nearest 250 mg per Medical Staff approval MEDICATION WASTE Product Size: 1000 mg Product Wasted: ___ mg Vancomycin 2019-0 No 2001 mg: Me moria 3-18 infuse l 23:00: over 2.5 [place] 00 hours For adult patients only: Round to nearest 250 mg per Medical Staff approval MEDICATION WASTE Product Size: 1000 mg Product Wasted: ___ mg Vancomycin 2019-0 No 2001 mg: Me moria 3-18 infuse l 23:00: over 2.5 [place] 00 hours For adult patients only: Round to nearest 250 mg per Medical Staff approval MEDICATION WASTE Product Size: 1000 mg Product Wasted: ___ mg Vancomycin 2019-0 No 2001 mg: Me moria 3-18 infuse l 23:00: over 2.5 [place] 00 hours For adult patients only: Round to nearest 250 mg per Medical Staff approval MEDICATION WASTE Product Size: 1000 mg Product Wasted: ___ mg Vancomycin 2019-0 No 2001 mg: Me moria 3-18 infuse l 23:00: over 2.5 [place] 00 hours For adult patients only: Round to nearest 250 mg per Medical Staff approval MEDICATION WASTE Product Size: 1000 mg Product Wasted: ___ mg Fleet Enema 2019-0 No 133 mL, Mem oria 3-17 Route: CA, l 22:12: Drug Form: [place] 00 CARLOZ, Dosing Weight 80.909, kg, ONCE, Start date: 05/19/18 17:12:00 CDT, Stop date: 05/19/18 17:12:00 CDT Fleet Enema 0 No 133 mL, Mem oria 3-17 Route: CA, l 22:12: Drug Form: [place] 00 CARLOZ, Dosing Weight 80.909, kg, ONCE, Start date: 05/19/18 17:12:00 CDT, Stop date: 05/19/18 17:12:00 CDT Fleet Enema 2018-0 No 133 mL, Mem oria 3-17 Route: CA, l 22:12: Drug Form: [place] 00 CARLOZ, Dosing Weight 80.909, kg, ONCE, Start date: 05/19/18 17:12:00 CDT, Stop date: 05/19/18 17:12:00 CDT Fleet Enema 2018-0 No 133 mL, Mem oria 3-17 Route: CA, l 22:12: Drug Form: [place] 00 CARLOZ, Dosing Weight 80.909, kg, ONCE, Start date: 05/19/18 17:12:00 CDT, Stop date: 05/19/18 17:12:00 CDT Fleet Enema 0 No 133 mL, Mem oria 3-17 Route: CA, l 22:12: Drug Form: [place] 00 CARLOZ, Dosing Weight 80.909, kg, ONCE, Start date: 05/19/18 17:12:00 CDT, Stop date: 05/19/18 17:12:00 CDT Naloxone 2019-0 No Notes: Memoria 3-15 Same as l 19:11: Narcan [place] 00 Naloxone 0 No Notes: Memoria 3-15 Same as l 19:11: Narcan [place] 00 Naloxone 2018-0 No Notes: Memoria 3-15 Same as l 19:11: Narcan [place] 00 Naloxone 2018-0 No Notes: Memoria 3-15 Same as l 19:11: Narcan [place] 00 Naloxone 2019-0 No Notes: Memoria 3-15 Same as l 19:11: Narcan [place] 00 Romazicon 2018-0 Yes Notes: Memori a 3-15 (Same as: l 19:01: Romazicon) [place] Romazicon Yes Notes: Memori a 3-15 (Same as: l 19:01: Romazicon) [place] Romazicon 2018-0 Yes Notes: Memori a 3-15 (Same as: l 19:01: Romazicon) Romazicon [id number] Yes Notes: Memori a 3-15 (Same as: l 19:01: Romazicon) Romazicon [id number] Yes Notes: Memori a 3-15 (Same as: l 19:01: Romazicon) glycopyrrol [id number] No Route: IV, Memoria ate (ANES) 3-15 Drug form: l 16:39: INJ, ONCE, [place] 00 Stop date: 05/17/18 11:39:00 CDT neostigmine 2019-0 No Route: IV, Memoria (ANES) 3-15 Drug form: l 16:39: INJ, ONCE, Stop date: 05/17/18 11:39:00 CDT morphine 2019-0 No Route: IV, Mem oria Sulfate 3-15 Drug form: l (ANES) 16:39: INJ, ONCE, Marcia nn Stop date: 05/17/18 11:39:00 CDT ondansetron [id number] No Route: IV, Memoria (ANES) 3-15 Drug form: l 16:39: INJ, ONCE, Stop date: 05/17/18 11:39:00 CDT glycopyrrol 2019-0 No Route: IV, Memoria ate (ANES) 3-15 Drug form: l 16:39: INJ, ONCE, Stop date: 05/17/18 11:39:00 CDT neostigmine 2019-0 No Route: IV, Memoria (ANES) 3-15 Drug form: l 16:39: INJ, ONCE, [place] 00 Stop date: 05/17/18 11:39:00 CDT morphine 2019-0 [...] 3-15 Drug form: l 16:39: INJ, ONCE, [place] 00 Stop date: 05/17/18 11:39:00 CDT neostigmine 2019-0 No Route: IV, Memoria (ANES) 3-15 Drug form: l 16:39: INJ, ONCE, [place] 00 Stop date: 05/17/18 11:39:00 CDT morphine 2019-0 [...] Marcia Stop date: 05/17/18 11:39:00 CDT ondansetron 2019-0 No Route: IV, Memoria (ANES) 3-15 Drug form: l 16:39: INJ, ONCE, [place] 00 Stop date: 05/17/18 11:39:00 CDT glycopyrrol 2019-0 No Route: IV, Memoria ate (ANES) 3-15 Drug form: l 16:39: INJ, ONCE, [place] 00 Stop date: 05/17/18 11:39:00 CDT neostigmine 2019-0 No Route: IV, Memoria (ANES) 3-15 Drug form: l 16:39: INJ, ONCE, [place] 00 Stop date: 05/17/18 11:39:00 CDT morphine 2019-0 No Route: IV, Mem oria Sulfate 3-15 Drug form: l (ANES) 16:39: INJ, ONCE, Stop date: 05/17/18 11:39:00 CDT ondansetron No Route: IV, Memoria (ANES) 3-15 Drug form: l 16:39: INJ, ONCE, Stop date: 05/17/18 11:39:00 CDT cefepime No Route: IV, Mem oria (ANES) 1000 3-15 Drug form: l mg 15:59: INJ, Start date: 05/17/18 10:59:00 CDT, Stop date: 05/17/18 11:59:00 CDT cefepime No Route: IV, Mem oria (ANES) 1000 3-15 Drug form: l mg 15:59: INJ, Start date: 05/17/18 10:59:00 CDT, Stop date: 05/17/18 11:59:00 CDT cefepime No Route: IV, Mem oria (ANES) 1000 3-15 Drug form: l mg 15:59: INJ, Start date: 05/17/18 10:59:00 CDT, Stop date: 05/17/18 11:59:00 CDT cefepime No Route: IV, Mem oria (ANES) 1000 3-15 Drug form: l mg 15:59: INJ, Start date: 05/17/18 10:59:00 CDT, Stop date: 05/17/18 11:59:00 CDT cefepime No Route: IV, Mem oria (ANES) 1000 3-15 Drug form: l mg 15:59: INJ, Start date: 05/17/18 10:59:00 CDT, Stop date: 05/17/18 11:59:00 CDT fentaNYL 2018-0 No Route: IV, Mem oria (ANES) 3-15 Drug form: l 15:53: INJ, ONCE, Stop date: 05/17/18 10:53:00 CDT phenylephri No Route: IV, Memoria ne [...] 3-15 Drug form: l 15:43: INJ, ONCE, [place] Stop date: 05/17/18 10:43:00 CDT midazolam 2019-0 No Route: IV, Me moria (ANES) 3-15 Drug form: l 15:43: SOLN, [place] 00 ONCE, Stop date: 05/17/18 10:43:00 CDT succinylcho 2019-0 No Route: IV, Memoria line (ANES) 3-15 Drug form: l 15:43: INJ, ONCE, [place] 00 Stop date: 05/17/18 10:43:00 CDT midazolam 2019-0 No Route: IV, Me moria (ANES) 3-15 Drug form: l 15:43: SOLN, [place] ONCE, Stop date: 05/17/18 10:43:00 CDT succinylcho 2019-0 No Route: IV, Memoria line (ANES) 3-15 Drug form: l 15:43: INJ, ONCE, [place] 00 Stop date: 05/17/18 10:43:00 CDT midazolam 2019-0 No Route: IV, Me moria (ANES) 3-15 Drug form: l 15:43: SOLN, [place] ONCE, Stop date: 05/17/18 10:43:00 CDT succinylcho 2019-0 No Route: IV, Memoria line (ANES) 3-15 Drug form: l 15:43: INJ, ONCE, [place] 00 Stop date: 05/17/18 10:43:00 CDT midazolam 2019-0 No Route: IV, Me moria (ANES) 3-15 Drug form: l 15:43: SOLN, [place] 00 ONCE, Stop date: 05/17/18 10:43:00 CDT Flumazenil 2019-0 No Notes: Memor ia 3-15 (Same as: l 15:35: Romazicon) [place] 00 Morphine 2019-0 No Notes: Memoria 3-15 (Same l 15:35: as:MORPhin [place] 00 e Sulfate) Hydromorpho No Notes: Kuldeep teto ne 3-15 Same as l 15:35: Dilaudid [place] 00 Acetaminoph No Notes: Max Memoria en 3-15 acetaminop l 15:35: hen 4000 [place] 00 mg/day (4 gm/day). (Same as: Tylenol Extra Strength) Promethazin No Notes: Do M emoria e 3-15 not give l 15:35: IV push. [place] 00 (Same as: Phenergan) Ondansetron No Notes: Kuldeep teto 3-15 (Same as: l 15:35: Zofran) [place] MEDICATION WASTE Product Size: 4 mg Product Wasted: ___ mg Meperidine No Notes: Memor ia 3-15 (Same as: l 15:35: Demerol) [place] 00 "Use Precaution in Elderly, Seizure disorders, and Renal impairment " Glycopyrrol No Notes: Kuldeep teto ate 3-15 (Same as: l 15:35: Robinul) [place] 00 Naloxone No Notes: Memoria 3-15 Same as l 15:35: Narcan [place] Flumazenil No Notes: Memor ia 3-15 (Same as: l 15:35: Romazicon) [place] 00 Morphine No Notes: Memoria 3-15 (Same l [...] 3-15 (Same as: l 15:35: Zofran) [place] MEDICATION WASTE Product Size: 4 mg Product Wasted: ___ mg Meperidine No Notes: Memor ia 3-15 (Same as: l 15:35: Demerol) "Use Precaution in Elderly, Seizure disorders, and Renal impairment " Glycopyrrol No Notes: Kuldeep teto ate 3-15 (Same as: l 15:35: Robinul) [place] 00 Naloxone No Notes: Memoria 3-15 Same as l 15:35: Narcan [place] 00 Flumazenil No Notes: Memor ia 3-15 (Same as: l 15:35: Romazicon) [place] 00 Morphine No Notes: Memoria 3-15 (Same l 15:35: as:MORPhin [place] 00 e Sulfate) Hydromorpho No Notes: Kuldeep teto ne 3-15 Same as l 15:35: Dilaudid Acetaminoph No Notes: Max Memoria en 3-15 acetaminop l 15:35: hen 4000 [place] 00 mg/day (4 gm/day). (Same as: Tylenol [...] ate 3-15 (Same as: l 15:35: Robinul) [place] 00 Naloxone No Notes: Memoria 3-15 Same as l 15:35: Narcan [place] 00 Flumazenil No Notes: Memor ia 3-15 (Same as: l 15:35: Romazicon) [place] 00 Morphine No Notes: Memoria 3-15 (Same l 15:35: as:MORPhin [place] 00 e Sulfate) Hydromorpho No Notes: Kuldeep teto ne 3-15 Same as l 15:35: Dilaudid [place] 00 Acetaminoph No Notes: Max Memoria en 3-15 acetaminop l 15:35: hen 4000 [place] 00 mg/day (4 gm/day). (Same as: Tylenol Extra Strength) Promethazin No Notes: Do M emoria e 3-15 not give l 15:35: IV push. [place] (Same as: Phenergan) Ondansetron No Notes: Kuldeep teto 3-15 (Same as: l 15:35: Zofran) [place] 00 MEDICATION WASTE Product Size: 4 mg Product Wasted: ___ mg Meperidine No Notes: Memor ia 3-15 (Same as: l 15:35: Demerol) "Use Precaution in Elderly, Seizure disorders, and Renal impairment " Glycopyrrol No Notes: Kuldeep teto ate 3-15 (Same as: l 15:35: Robinul) [place] 00 Naloxone No Notes: Memoria 3-15 Same as l 15:35: Narcan Flumazenil No Notes: Memor ia 3-15 (Same as: l 15:35: Romazicon) Morphine No Notes: Memoria 3-15 (Same l 15:35: as:MORPhin [place] 00 e Sulfate) Hydromorpho No Notes: Kuldeep teto ne 3-15 Same as l 15:35: Dilaudid [place] 00 Acetaminoph No Notes: Max Memoria en 3-15 acetaminop l 15:35: hen 4000 [place] 00 mg/day (4 gm/day). (Same as: Tylenol Extra Strength) Promethazin No Notes: Do M emoria e 3-15 not give l 15:35: IV push. [place] 00 (Same as: Phenergan) Ondansetron No Notes: Kuldeep teto 3-15 (Same as: l 15:35: Zofran) [place] 00 MEDICATION WASTE Product Size: 4 mg [...] Drug form: l 100 14:50: INJ, Start [place] microgram date: 05/17/18 9:50:00 CDT, Stop date: 05/17/18 10:50:00 CDT phenylephri 2019-0 No Route: IV, Memoria ne (ANES) 3-15 Drug form: l 100 14:50: INJ, Start [place] microgram 00 date: 05/17/18 9:50:00 CDT, Stop date: 05/17/18 10:50:00 CDT phenylephri 2019-0 No Route: IV, Memoria ne (ANES) 3-15 Drug form: l 100 14:50: INJ, Start [place] microgram 00 date: 05/17/18 9:50:00 CDT, Stop date: 05/17/18 10:50:00 CDT phenylephri 2019-0 No Route: IV, Memoria ne (ANES) 3-15 Drug form: l 100 14:50: INJ, Start [place] microgram 00 date: 05/17/18 9:50:00 CDT, Stop date: 05/17/18 10:50:00 CDT phenylephri 2019-0 No Route: IV, Memoria ne (ANES) 3-15 Drug form: l 100 14:50: INJ, Start [place] microgram 00 date: 05/17/18 9:50:00 CDT, Stop [...] CDT, Stop date: 05/17/18 10:30:00 CDT Lactated No Route: IV, Mem oria Ringers 3-15 Total l Injection 14:30: Volume: Marcia nn IV (ANES) 00 1,000, 1000 mL Start date: 05/17/18 9:30:00 CDT, Stop date: 05/17/18 10:30:00 CDT Lactated No Route: IV, Mem oria Ringers 3-15 Total l Injection 14:30: Volume: Marcia nn IV (ANES) 00 1,000, 1000 mL Start date: 05/17/18 9:30:00 CDT, Stop date: 05/17/18 10:30:00 CDT Lisinopril No Notes: Memor ia 3-15 (Same as: l 14:00: Prinivil, [place] 00 Zestril) Lisinopril No Notes: Memor ia 3-15 (Same as: l 14:00: Prinivil, [place] 00 Zestril) Lisinopril No Notes: Memor ia 3-15 (Same as: l 14:00: Prinivil, [place] 00 Zestril) Lisinopril No Notes: Memor ia 3-15 (Same as: l 14:00: Prinivil, [place] 00 Zestril) Lisinopril No Notes: Memor ia 3-15 (Same as: l 14:00: Prinivil, [place] 00 Zestril) Vancomycin No 2000 mg: Me moria 3-15 infuse [...] Vancomycin 2019-0 No 2000 mg: Me moria 3-15 infuse l 06:00: over 2.5 [place] 00 hours For adult patients only: Round to nearest 250 mg per Medical Staff approval MEDICATION WASTE Product Size: 1000 mg Product Wasted: ___ mg Vancomycin 2018- No 2001 mg: Me moria 3-15 infuse l 06:00: over 2.5 [place] 00 hours For adult patients only: Round to nearest 250 mg per Medical Staff approval MEDICATION WASTE Product Size: 1000 mg Product Wasted: ___ mg Vancomycin 2018- No 2001 mg: Me moria 3-15 infuse [...] mg 3-14 "Syringe l injection 22:49: for [place] 00 catheter clearance or interventi onal radiology [...] mg 3-14 "Syringe l injection 22:49: for [place] 00 catheter clearance or interventi onal radiology use. Reconstitu te each vial of Cathflo Activase with 2.2 ml Sterile Water resulting in a 1 mg/ml solution. (Same as: Activase) MEDICATION WASTE Product Size: 2 mg Product Wasted: ___ mg alteplase 2 No Notes: Kuldeep teto mg 3-14 "Syringe l injection 22:48: for [place] 00 catheter clearance or interventi onal radiology [...] mg 3-14 "Syringe l injection 22:48: for [place] 00 catheter clearance or interventi onal radiology [...] 3-13 Route: l 17:13: IVP, ONCE, [place] 00 Dosing Weight 80.909, kg, Start date: 05/15/18 12:13:00 CDT, Stop date: 05/15/18 12:13:00 CDT Metoclopram No 10 mg, Kuldeep teto thor 3-13 Route: l 17:13: IVP, ONCE, [place] 00 Dosing Weight 80.909, kg, Start date: 05/15/18 12:13:00 CDT, Stop date: 05/15/18 12:13:00 CDT Docusate No Notes: Memoria Sodium 100 3-13 (Same as: l MG Oral 15:11: Colace) [place] Capsule 00 (Do Not [Colace] Crush) Docusate No Notes: Memoria Sodium 100 3-13 (Same as: l MG Oral 15:11: Colace) [place] Capsule 00 (Do Not [Colace] Crush) Docusate No Notes: Memoria Sodium 100 3-13 (Same as: l MG Oral 15:11: Colace) [place] Capsule 00 (Do Not [Colace] Crush) Docusate No Notes: Memoria Sodium 100 3-13 (Same as: l MG Oral 15:11: Colace) [place] Capsule 00 (Do Not [Colace] Crush) Docusate No Notes: Memoria Sodium 100 3-13 (Same as: l MG Oral 15:11: Colace) [place] Capsule 00 (Do Not [Colace] Crush) Chlorpromaz No Notes: Kuldeep teto ine 3-12 (Same As: l 23:30: Thorazine) [place] Chlorpromaz No Notes: Kuldeep teto ine 3-12 (Same As: l 23:30: Thorazine) [place] Chlorpromaz No Notes: Kuldeep teto ine 3-12 (Same As: l 23:30: Thorazine) [place] Chlorpromaz No Notes: Kuldeep teto ine 3-12 (Same As: l 23:30: Thorazine) [place] Chlorpromaz No Notes: Kuldeep teto ine 3-12 (Same As: l 23:30: Thorazine) [place] Reglan No Notes: Memoria 3-12 (Same as: l 21:45: Reglan) [place] 00 Reglan No Notes: Memoria 3-12 (Same as: l 21:45: Reglan) [place] 00 Reglan No Notes: Memoria 3-12 (Same as: l 21:45: Reglan) [place] 00 Reglan No Notes: Memoria 3-12 (Same as: l 21:45: Reglan) [place] 00 Reglan No Notes: Memoria 3-12 (Same as: l 21:45: Reglan) [place] 00 cefepime Yes Notes: Memoria 3-12 (Same As: l 20:00: Maxipime) [place] 00 MEDICATION WASTE Product Size: 1000 mg Product Wasted: _0__ mg cefepime Yes Notes: Memoria 3-12 (Same As: l 20:00: Maxipime) [place] 00 MEDICATION WASTE Product Size: 1000 mg Product Wasted: _0__ mg cefepime 2018- Yes Notes: Memoria 3-12 (Same As: l 20:00: Maxipime) [place] 00 MEDICATION WASTE Product Size: 1000 mg Product Wasted: _0__ mg cefepime 2018-0 Yes Notes: Memoria 3-12 (Same As: l 20:00: Maxipime) [place] 00 MEDICATION WASTE Product Size: 1000 mg Product Wasted: _0__ mg cefepime 2018-0 Yes Notes: Memoria 3-12 (Same As: l 20:00: Maxipime) [place] 00 MEDICATION WASTE Product Size: 1000 mg Product Wasted: _0__ mg Fentanyl 2019-0 No Notes: Memoria 3-12 (Same as: l 16:56: Sublimaze) [place] Preservati ve free. Fentanyl 2019- No Notes: Memoria 3-12 (Same as: l 16:56: Sublimaze) [place] Preservati ve free. Fentanyl 2019 No Notes: Memoria 3-12 (Same as: l 16:56: Sublimaze) [place] 00 Preservati ve free. Fentanyl 2019-0 No Notes: Memoria 3-12 (Same as: l 16:56: Sublimaze) [place] 00 Preservati ve free. Fentanyl 2019-0 No Notes: Memoria 3-12 (Same as: l 16:56: Sublimaze) [place] 00 Preservati ve free. lidocaine 2019-0 No Notes: Memori a 3-12 Preservati l 05:00: ve free. [place] 00 (Same as: Xylocaine MPF) lidocaine 2019-0 No Notes: Memori a 3-12 Preservati l 05:00: ve free. [place] 00 (Same as: Xylocaine MPF) lidocaine 20190 No Notes: Memori a 3-12 Preservati l 05:00: ve free. [place] 00 (Same as: Xylocaine MPF) lidocaine 0 No Notes: Memori a 3-12 Preservati l 05:00: ve free. [place] 00 (Same as: Xylocaine MPF) lidocaine 20190 No Notes: Memori a 3-12 Preservati l 05:00: ve free. [place] 00 (Same as: Xylocaine MPF) Sodium 2019-0 No 250 mL, Memoria Chloride 3-12 Rate: To l 0.9% 02:42: prime line [place] (titrate) 00 and flush 250 mL remaining [...] Rate: To l 0.9% 02:42: prime line [place] (titrate) 00 and flush 250 mL remaining [...] date: 06/12/18 20:20:00 CDT, 2.05, m2 Morphine 2019-0 No Notes: Memoria 3-11 (Same l 22:48: as:MORPhin [place] 00 e Sulfate) Morphine 2018-0 No Notes: Memoria 3-11 (Same l 22:48: as:MORPhin [place] 00 e Sulfate) Morphine 2019-0 No Notes: Memoria 3-11 (Same l 22:48: as:MORPhin [place] 00 e Sulfate) Morphine 2018-0 No Notes: Memoria 3-11 (Same l 22:48: as:MORPhin [place] 00 e Sulfate) Morphine 2018-0 No Notes: Memoria 3-11 (Same l 22:48: as:MORPhin [place] 00 e Sulfate) albumin 2019-0 No 250 mL, Memoria human 5% 3-11 [...] nn 00 Stop date: 05/13/18 10:36:00 CDT morphine 2018-0 No Route: IV, Mem oria Sulfate 3-11 Drug form: l (ANES) 15:36: INJ, ONCE, [place] nn 00 Stop date: 05/13/18 10:36:00 CDT morphine 2019-0 [...] 3-11 Drug form: l 14:05: SOLN, [place] ONCE, Stop date: 05/13/18 9:05:00 CDT acetaminoph 2019-0 No Route: IV, Memoria en (ANES) 3-11 Drug form: l 14:05: INJ, ONCE, [place] Stop date: 05/13/18 9:05:00 CDT sugammadex 2019-0 No Route: IV, M emoria (ANES) 3-11 Drug form: l 14:05: SOLN, [place] ONCE, Stop date: 05/13/18 9:05:00 CDT acetaminoph [...] 3-11 Drug form: l 14:05: INJ, ONCE, [place] Stop date: 05/13/18 9:05:00 CDT sugammadex 2019-0 No Route: IV, M emoria (ANES) 3-11 Drug form: l 14:05: SOLN, [place] 00 ONCE, Stop date: 05/13/18 9:05:00 CDT acetaminoph No Route: IV, Memoria en (ANES) 3-11 Drug form: l 14:05: INJ, ONCE, [place] 00 Stop date: 05/13/18 9:05:00 CDT sugammadex No Route: IV, M emoria (ANES) 3-11 Drug form: l 14:05: SOLN, [place] 00 ONCE, Stop date: 05/13/18 9:05:00 CDT acetaminoph No Route: IV, Memoria en (ANES) 3-11 Drug form: l 14:05: INJ, ONCE, [place] 00 Stop date: 05/13/18 9:05:00 CDT Albuterol No Notes: SEE Me moria 0.83 MG/ML 3-11 RT l Inhalant 13:39: DOCUMENTAT Her fernandes Solution 00 ION (Same as: Proventil) Hydralazine No Notes: Kuldeep teto 3-11 (Same as: l 13:39: Apresoline ) Push over 5 minutes Hydromorpho No Notes: Kuldeep teto ne 3-11 Same as l 13:39: Dilaudid Morphine 2018- No Notes: Memoria 3-11 (Same l 13:39: as:MORPhin e Sulfate) Naloxone No Notes: Memoria 3-11 Same as l 13:39: Narcan Flumazenil No Notes: Memor ia 3-11 (Same as: l 13:39: Romazicon) Dexamethaso 2018- No Notes: Kuldeep teto ne 3-11 Concentrat l 13:39: ion: [place] 00 4mg/ml Ondansetron 2018- No Notes: Kuldeep teto 3-11 (Same as: l 13:39: Zofran) MEDICATION WASTE Product Size: 4 mg Product Wasted: ___ mg Albuterol 2018- No Notes: SEE Me moria 0.83 MG/ML 3-11 RT l Inhalant 13:39: DOCUMENTAT Her f[place]and[place] Solution 00 ION (Same as: Proventil) Hydralazine No Notes: Kuldeep teto 3-11 (Same as: l 13:39: Apresoline [place] 00 ) Push over 5 minutes Hydromorpho 2018- No Notes: Kuldeep teto ne 3-11 Same as l 13:39: Dilaudid [place] 00 Morphine 2018- No Notes: Memoria 3-11 (Same l 13:39: as:MORPhin [place] 00 e Sulfate) Naloxone 2018- No Notes: Memoria 3-11 Same as l 13:39: Narcan [place] 00 Flumazenil 2018- No Notes: Memor ia 3-11 (Same as: l 13:39: Romazicon) [place] Dexamethaso 2018- No Notes: Kuldeep teto ne 3-11 Concentrat l 13:39: ion: [place] 00 4mg/ml Ondansetron 2018- No Notes: Kuldeep teto 3-11 (Same as: l 13:39: Zofran) [place] 00 MEDICATION WASTE Product Size: 4 mg Product Wasted: ___ mg Albuterol 2018- No Notes: SEE Me moria 0.83 MG/ML 3-11 RT l Inhalant 13:39: DOCUMENTAT Her f[place] Solution 00 ION (Same as: Proventil) Hydralazine 2018- No Notes: Kuldeep teto 3-11 (Same as: l 13:39: Apresoline [place] 00 ) Push over 5 minutes Hydromorpho No Notes: Kuldeep teto ne 3-11 Same as l 13:39: Dilaudid [place] 00 Morphine 2018- No Notes: Memoria 3-11 (Same l 13:39: as:MORPhin [place] 00 e Sulfate) Naloxone 2018- No Notes: Memoria 3-11 Same as l 13:39: Narcan [place] 00 Flumazenil 2018- No Notes: Memor ia 3-11 (Same as: l 13:39: Romazicon) [place] Dexamethaso 2018- No Notes: Kuldeep teto ne 3-11 Concentrat l 13:39: ion: [place] 00 4mg/ml Ondansetron 2018- No Notes: Kuldeep teto 3-11 (Same as: l 13:39: Zofran) [place] 00 MEDICATION WASTE Product Size: 4 mg Product Wasted: ___ mg Albuterol 2019- No Notes: SEE Me moria 0.83 MG/ML 3-11 RT l Inhalant 13:39: DOCUMENTAT Her [place] Solution 00 ION (Same as: Proventil) Hydralazine 2018- No Notes: Kuldeep teto 3-11 (Same as: l 13:39: Apresoline [place] 00 ) Push over 5 minutes Hydromorpho 2018- No Notes: Kuldeep teto ne 3-11 Same as l 13:39: Dilaudid [place] 00 Morphine 2018- No Notes: Memoria 3-11 (Same l 13:39: as:MORPhin [place] 00 e Sulfate) Naloxone 2018- No Notes: Memoria 3-11 Same as l 13:39: Narcan [place] 00 Flumazenil 2018- No Notes: Memor ia 3-11 (Same as: l 13:39: Romazicon) [place] Dexamethaso 2018- No Notes: Kuldeep teto ne 3-11 Concentrat l 13:39: ion: [place] 00 4mg/ml Ondansetron 2018- No Notes: Kuldeep teot 3-11 (Same as: l 13:39: Zofran) [place] MEDICATION WASTE Product Size: 4 mg Product Wasted: ___ mg Albuterol 2019- No Notes: SEE Me moria 0.83 MG/ML 3-11 RT l Inhalant 13:39: DOCUMENTAT Her fernandes Solution 00 ION (Same as: Proventil) Hydralazine 2018- No Notes: Kuldeep teto 3-11 (Same as: l 13:39: Apresoline [place] 00 ) Push over 5 minutes Hydromorpho 2018- No Notes: Kuldeep teto ne 3-11 Same as l 13:39: Dilaudid [place] 00 Morphine 2018- No Notes: Memoria 3-11 (Same l 13:39: as:MORPhin [place] 00 e Sulfate) Naloxone 2018- No Notes: Memoria 3-11 Same as l 13:39: Narcan [place] 00 Flumazenil 2018- No Notes: Memor ia 3-11 (Same as: l 13:39: Romazicon) [place] 00 Dexamethaso 2018- No Notes: Kuldeep teto ne 3-11 Concentrat l 13:39: ion: 4mg/ml Ondansetron No Notes: Kuldeep teto 3-11 (Same as: l 13:39: Zofran) MEDICATION WASTE Product Size: 4 mg Product Wasted: ___ mg esmolol No Route: IV, Kuldeep teto (ANES) 3-11 Drug form: l 13:38: INJ, ONCE, Stop date: 05/13/18 8:38:00 CDT esmolol 0 No Route: IV, Kuldeep teto (ANES) 3-11 Drug form: l 13:38: INJ, ONCE, Stop date: 05/13/18 8:38:00 CDT esmolol 0 No Route: IV, Kuldeep teto (ANES) 3-11 Drug form: l 13:38: INJ, ONCE, Stop date: 05/13/18 8:38:00 CDT esmolol 0 No Route: IV, Kuldeep teto (ANES) 3-11 Drug form: l 13:38: INJ, ONCE, Stop date: 05/13/18 8:38:00 CDT esmolol 0 No Route: IV, Kuldeep teto (ANES) 3-11 Drug form: l 13:38: INJ, ONCE, Stop date: 05/13/18 8:38:00 CDT fentaNYL 20190 No Route: IV, Mem oria (ANES) 3-11 [...] Drug form: l 13:28: INJ, ONCE, [place] 00 Stop date: 05/13/18 8:28:00 CDT fentaNYL 2019-0 No Route: IV, Mem oria (ANES) 3-11 Drug form: l 13:28: INJ, ONCE, [place] 00 Stop date: 05/13/18 8:28:00 CDT midazolam 2019-0 No Route: IV, Me moria (ANES) 3-11 Drug form: l 13:23: SOLN, [place] ONCE, Stop date: 05/13/18 8:23:00 CDT rocuronium 2019-0 No Route: IV, M emoria (ANES) 3-11 Drug form: l 13:23: INJ, ONCE, [place] 00 Stop date: 05/13/18 8:23:00 CDT lidocaine 2019-0 No Route: IV, Me moria (ANES) 3-11 Drug form: l 13:23: INJ, ONCE, [place] 00 Stop date: 05/13/18 8:23:00 CDT propofol 2019-0 No Route: IV, Mem oria (ANES) 3-11 Drug form: l 13:23: INJ, ONCE, [place] 00 Stop date: 05/13/18 8:23:00 CDT midazolam 2019-0 No Route: IV, Me moria (ANES) 3-11 Drug form: l 13:23: SOLN, [place] 00 ONCE, Stop date: 05/13/18 8:23:00 CDT rocuronium 2019-0 No Route: IV, M emoria (ANES) 3-11 Drug form: l 13:23: INJ, ONCE, [place] 00 Stop date: 05/13/18 8:23:00 CDT lidocaine 2019-0 No Route: IV, Me moria (ANES) 3-11 Drug form: l 13:23: INJ, ONCE, [place] Stop date: 05/13/18 8:23:00 CDT propofol 2019-0 No Route: IV, Mem oria (ANES) 3-11 Drug form: l 13:23: INJ, ONCE, [place] 00 Stop date: 05/13/18 8:23:00 CDT midazolam 2019-0 No Route: IV, Me moria (ANES) 3-11 Drug form: l 13:23: SOLN, [place] 00 ONCE, Stop date: 05/13/18 8:23:00 CDT rocuronium 2019-0 No Route: IV, M emoria (ANES) 3-11 Drug form: l 13:23: INJ, ONCE, [place] 00 Stop date: 05/13/18 8:23:00 CDT lidocaine 2019-0 No Route: IV, Me moria (ANES) 3-11 Drug form: l 13:23: INJ, ONCE, Stop date: 05/13/18 8:23:00 CDT propofol 2019-0 No Route: IV, Mem oria (ANES) 3-11 Drug form: l 13:23: INJ, ONCE, [place] 00 Stop date: 05/13/18 8:23:00 CDT midazolam 2019-0 No Route: IV, Me moria (ANES) 3-11 Drug form: l 13:23: SOLN, [place] ONCE, Stop date: 05/13/18 8:23:00 CDT rocuronium 2019-0 No Route: IV, M emoria (ANES) 3-11 Drug form: l 13:23: INJ, ONCE, Stop date: 05/13/18 8:23:00 CDT lidocaine 2019-0 No Route: IV, Me moria (ANES) 3-11 Drug form: l 13:23: INJ, ONCE, [place] 00 Stop date: 05/13/18 8:23:00 CDT propofol 2019-0 No Route: IV, Mem oria (ANES) 3-11 Drug form: l 13:23: INJ, ONCE, Stop date: 05/13/18 8:23:00 CDT midazolam 2019-0 No Route: IV, Me moria (ANES) 3-11 Drug form: l 13:23: SOLN, [place] ONCE, Stop date: 05/13/18 8:23:00 CDT rocuronium 2019-0 No Route: IV, M emoria (ANES) 3-11 Drug form: l 13:23: INJ, ONCE, [place] 00 Stop date: 05/13/18 8:23:00 CDT lidocaine 2019-0 No Route: IV, Me moria (ANES) 3-11 Drug form: l 13:23: INJ, ONCE, Stop date: 05/13/18 8:23:00 CDT propofol 2019-0 No Route: IV, Mem oria (ANES) 3- Drug form: l 13:23: INJ, ONCE, Stop date: 05/13/18 8:23:00 CDT phenylephri 2019-0 No Route: IV, Memoria ne (ANES) 3- Drug form: l 13:18: INJ, ONCE, Stop date: 05/13/18 8:18:00 CDT phenylephri 2019-0 No Route: IV, Memoria ne (ANES) 3- Drug form: l 13:18: INJ, ONCE, Stop date: 05/13/18 8:18:00 CDT phenylephri 2019-0 No Route: IV, Memoria ne (ANES) 3- Drug form: l 13:18: INJ, ONCE, Stop date: 05/13/18 8:18:00 CDT phenylephri 2019-0 No Route: IV, Memoria ne (ANES) 3- Drug form: l 13:18: INJ, ONCE, Stop date: 05/13/18 8:18:00 CDT phenylephri 2019-0 No Route: IV, Memoria ne (ANES) 3- Drug form: l 13:18: INJ, ONCE, Stop [...] CDT, Stop date: 05/13/18 8:09:00 CDT Vancomycin 2019-0 No 2000 mg: Me moria 3- infuse l 20:00: over 2.5 [place] 00 hours Vancomycin 2019-0 No 2000 mg: Me moria 3-09 infuse l 20:00: over 2.5 [place] 00 hours Vancomycin No 2001 mg: Me moria 3-09 infuse l 20:00: over 2.5 [place] 00 hours Vancomycin No 2001 mg: Me moria 3-09 infuse l 20:00: over 2.5 [place] 00 hours Vancomycin No 2001 mg: Me moria 3-09 infuse l 20:00: over 2.5 [place] 00 hours heparin No Notes: Memoria 3-09 porcine l 15:00: heparin [place] 00 heparin No Notes: Memoria 3-09 porcine l 15:00: heparin [place] 00 heparin No Notes: Memoria 3-09 porcine l 15:00: heparin [place] 00 heparin No Notes: Memoria 3-09 porcine l 15:00: heparin [place] 00 heparin No Notes: Memoria 3-09 porcine l 15:00: heparin [place] 00 Acetaminoph No Notes: Kuldeep teto en 325 MG / 05-11 (Same as: l Hydrocodone 01:40: [place] Marcia nn Bitartrate 00 325/5) Do 5 MG Oral not exceed Tablet 4gm/day of [[place] acetaminop 5/325] hen. Acetaminoph No Notes: Ukldeep teto en 325 MG / 05-11 (Same as: l Hydrocodone 01:40: [place] Marcia nn Bitartrate 00 325/5) Do 5 MG Oral not exceed Tablet 4gm/day of [[place] acetaminop 5/325] hen. Acetaminoph No Notes: Kuldeep teto en 325 MG / 05-11 (Same as: l Hydrocodone 01:40: [place] Marcia nn Bitartrate 00 325/5) Do 5 MG Oral not exceed Tablet 4gm/day of [[place] acetaminop 5/325] hen. Acetaminoph No Notes: Kuldeep teto en 325 MG / 05-11 (Same as: l Hydrocodone 01:40: [place] Marcia nn Bitartrate 00 325/5) Do 5 MG Oral not exceed Tablet 4gm/day of [[place] acetaminop 5/325] hen. Acetaminoph No Notes: Kuldeep teto en 325 MG / 05-11 (Same as: l Hydrocodone 01:40: [place] Marcia nn Bitartrate 00 325/5) Do 5 MG Oral not exceed Tablet 4gm/day of [[place] acetaminop 5/325] hen. 24 HR 2018-0 No 25 mg, 1 Memoria Metoprolol 3-08 tab, l Tartrate 25 15:00: Route: PO, [place] MG Extended 00 Drug form: Release ERTAB, Tablet Daily, [Toprol] Start date: 05/10/18 9:00:00 [employer], Duration: 30 day, Stop date: 06/08/18 9:00:00 CDT ferrous 2018-0 No Notes: Memoria sulfate 3-08 Dose=___mg l 15:00: elemental [place] 00 iron duloxetine 2018-0 No 30 mg, 1 Mem oria 3-08 cap, l 15:00: Route: PO, [place] 00 Drug form: DRC, Daily, Dosing Weight 80.909, kg, Start date: 05/10/18 9:00:00 [employer], Duration: 30 day, Stop date: 06/08/18 9:00:00 CDT clopidogrel 2018-0 No Notes: Kuldeep teto 3-08 (Same As: l 15:00: Plavix) [place] 00 Lisinopril 2018-0 No Notes: Memor ia 3-08 (Same as: l 15:00: Prinivil, [place] 00 Zestril) 24 HR No 25 mg, 1 [facility] Metoprolol 3-08 tab, l Tartrate 25 15:00: Route: PO, [place] MG Extended 00 Drug form: Release ERTAB, Tablet Daily, [Toprol] Start date: 05/10/18 9:00:00 [employer], Duration: 30 day, Stop date: 06/08/18 9:00:00 CDT ferrous 2019-0 No Notes: [facility] sulfate 3-08 Dose=___mg l 15:00: elemental [place] 00 iron duloxetine 2018-0 No 30 mg, 1 Mem oria 3-08 cap, l 15:00: Route: PO, [place] 00 Drug form: DRC, Daily, Dosing Weight 80.909, kg, Start date: 05/10/18 9:00:00 [employer], Duration: 30 day, Stop date: 06/08/18 9:00:00 CDT clopidogrel 2019-0 No Notes: Kuldeep teto 3-08 (Same As: l 15:00: Plavix) [place] 00 Lisinopril 0 No Notes: Memor ia 3-08 (Same as: l 15:00: Prinivil, [place] 00 Zestril) 24 HR No 25 mg, 1 [facility] Metoprolol 3-08 tab, l Tartrate 25 15:00: Route: PO, [place] MG Extended 00 Drug form: Release ERTAB, Tablet Daily, [Toprol] Start date: 05/10/18 9:00:00 [employer], Duration: 30 day, Stop date: 06/08/18 9:00:00 CDT ferrous 2018-0 No Notes: [facility] sulfate 3-08 Dose=___mg l 15:00: elemental [place] 00 iron duloxetine No 30 mg, 1 Mem oria 3-08 cap, l 15:00: Route: PO, [place] 00 Drug form: DRC, Daily, Dosing Weight 80.909, kg, Start date: 05/10/18 9:00:00 [employer], Duration: 30 day, Stop date: 06/08/18 9:00:00 CDT clopidogrel 0 No Notes: Kuldeep teto 3-08 (Same As: l 15:00: Plavix) [place] Lisinopril 0 No Notes: Memor ia 3-08 (Same as: l 15:00: Prinivil, [place] 00 Zestril) 24 HR No 25 mg, 1 [facility] Metoprolol 3-08 tab, l Tartrate 25 15:00: Route: PO, [place] MG Extended 00 Drug form: Release ERTAB, Tablet Daily, [Toprol] Start date: 05/10/18 9:00:00 [employer], Duration: 30 day, Stop date: 06/08/18 9:00:00 CDT ferrous 2018-0 No Notes: [facility] sulfate 3-08 Dose=___mg l 15:00: elemental [place] 00 iron duloxetine 0 No 30 mg, 1 Mem oria 3-08 cap, l 15:00: Route: PO, [place] 00 Drug form: DRC, Daily, Dosing Weight 80.909, kg, Start date: 05/10/18 9:00:00 [employer], Duration: 30 day, Stop date: 06/08/18 9:00:00 CDT clopidogrel 2018-0 No Notes: Kuldeep teto 3-08 (Same As: l 15:00: Plavix) [place] 00 Lisinopril 0 No Notes: Memor ia 3-08 (Same as: l 15:00: Prinivil, [place] 00 Zestril) 24 HR 0 No 25 mg, 1 [facility] Metoprolol 3-08 tab, l Tartrate 25 15:00: Route: PO, [place] MG Extended 00 Drug form: Release ERTAB, Tablet Daily, [Toprol] Start date: 05/10/18 9:00:00 [employer], Duration: 30 day, Stop date: 06/08/18 9:00:00 CDT ferrous 2018-0 No Notes: [facility] sulfate 3-08 Dose=___mg l 15:00: elemental [place] 00 iron duloxetine No 30 mg, 1 Mem oria 3-08 cap, l 15:00: Route: PO, [place] 00 Drug form: DRC, Daily, Dosing Weight 80.909, kg, Start date: 05/10/18 9:00:00 [employer], Duration: 30 day, Stop date: 06/08/18 9:00:00 CDT clopidogrel 2018-0 No Notes: Kuldeep teto 3-08 (Same As: l 15:00: Plavix) [place] 00 Lisinopril No Notes: Memor ia 3-08 (Same as: l 15:00: Prinivil, [place] 00 Zestril) Saline 0 No 10 mL, [facility] Flush 0.9% 3-08 Route: l 06:00: IVP, Drug Form: INJ, Dosing Weight 80.909, kg, Q8H, Start date: 05/10/18 0:00:00 [employer], Duration: 30 day, Stop date: 06/08/18 16:00:00 CDT Saline 2018-0 No 10 mL, [facility] Flush 0.9% 3-08 Route: l 06:00: IVP, Drug [place] 00 Form: INJ, Dosing Weight 80.909, kg, Q8H, Start date: 05/10/18 0:00:00 [employer], Duration: 30 day, Stop date: 06/08/18 16:00:00 CDT Saline 2019-0 No 10 mL, [facility] Flush 0.9% 3-08 Route: l 06:00: IVP, Drug [place] 00 Form: INJ, Dosing Weight 80.909, kg, Q8H, Start date: 05/10/18 0:00:00 [employer], Duration: 30 day, Stop date: 06/08/18 16:00:00 CDT Saline 2019-0 No 10 mL, [facility] Flush 0.9% 3-08 Route: l 06:00: IVP, Drug [place] 00 Form: INJ, Dosing Weight 80.909, kg, Q8H, Start date: 05/10/18 0:00:00 [employer], Duration: 30 day, Stop date: 06/08/18 16:00:00 CDT Saline 2018-0 No 10 mL, [facility] Flush 0.9% 3-08 Route: l 06:00: IVP, Drug [place] 00 Form: INJ, Dosing Weight 80.909, kg, Q8H, Start date: 05/10/18 0:00:00 [employer], Duration: 30 day, Stop date: 06/08/18 16:00:00 CDT Mirtazapine No Notes: Kuldeep teto 3-08 (Same l 03:00: as:Remeron [place] ) Trazodone No Notes: Memori a Hydrochlori 3-08 (Same As: l de 50 MG 03:00: Desyrel) Marcia nn Oral Tablet atorvastati No Notes: Kuldeep teto n 3-08 (Same as: l 03:00: Lipitor) [place] Mirtazapine No Notes: Kuldeep teto 3-08 (Same l 03:00: as:Remeron [place] ) Trazodone No Notes: [facility] a Hydrochlori 3-08 (Same As: l de 50 MG 03:00: Desyrel) [place] nn Oral Tablet atorvastati No Notes: Kuldeep teto n 3-08 (Same as: l 03:00: Lipitor) [place] Mirtazapine No Notes: Kuldeep teto 3-08 (Same l 03:00: as:Remeron [place] ) Trazodone No Notes: Memori a Hydrochlori [...] n 3-08 (Same as: l 03:00: Lipitor) [place] Saline No 10 mL, [facility] Flush 0.9% 3-07 Route: l 23:54: IVP, Drug [place] Form: INJ, Dosing Weight 80.909, kg, PRN, PRN Line Flush, Start date: 05/09/18 17:54:00 [employer], Duration: 30 day, Stop date: 06/08/18 18:53:00 CDT Saline No 10 mL, [facility] Flush 0.9% 3-07 Route: l 23:54: IVP, Drug [place] 00 Form: INJ, Dosing Weight 80.909, kg, PRN, PRN Line Flush, Start date: 05/09/18 17:54:00 [employer], Duration: 30 day, Stop date: 06/08/18 18:53:00 CDT Saline No 10 mL, [facility] Flush 0.9% 3-07 Route: l 23:54: IVP, Drug [place] 00 Form: INJ, Dosing Weight 80.909, kg, PRN, PRN Line Flush, Start date: 05/09/18 17:54:00 [employer], Duration: 30 day, Stop date: 06/08/18 18:53:00 CDT Saline 2018-0 No 10 mL, [facility] Flush 0.9% 3- Route: l 23:54: IVP, Drug [place] 00 Form: INJ, Dosing Weight 80.909, kg, PRN, PRN Line Flush, Start date: 05/09/18 17:54:00 [employer], Duration: 30 day, Stop date: 06/08/18 18:53:00 CDT Saline 2018-0 No 10 mL, [facility] Flush 0.9% 05-09 Route: l 23:54: IVP, Drug [place] 00 Form: INJ, Dosing Weight 80.909, kg, PRN, PRN Line Flush, Start date: 05/09/18 17:54:00 [employer], Duration: 30 day, Stop date: 06/08/18 18:53:00 CDT cefepime 0 No Notes: [facility] 3-07 (Same As: l 23:00: Maxipime) [place] 00 MEDICATION WASTE Product Size: 1000 mg Product Wasted: ___ mg Buspirone 2018-0 No Notes: Memori a 3-07 (Same As: l 23:00: BuSpar) [place] cefepime No Notes: [facility] 3-07 (Same As: l 23:00: Maxipime) [place] 00 MEDICATION WASTE Product Size: 1000 mg Product Wasted: ___ mg Buspirone 2018-0 No Notes: Memori a 3-07 (Same As: l 23:00: BuSpar) [place] cefepime No Notes: [facility] 3-07 (Same As: l 23:00: Maxipime) [place] 00 MEDICATION WASTE Product Size: 1000 mg Product Wasted: ___ mg Buspirone 2018-0 No Notes: Memori a 3-07 (Same As: l 23:00: BuSpar) [place] cefepime 2019-0 No Notes: [facility] 3-07 (Same [...] 3-07 (Same as: l Flush 22:00: BD Posiflush) Vancomycin No Notes: For M emoria 3-07 adult l 22:00: patients [place] 00 only: Round to nearest 250 mg per Medical Staff approval MEDICATION WASTE Product Size: 1000 mg Product Wasted: ___ mg BD Normal No Notes: Memori a Saline 3-07 (Same as: l Flush 22:00: BD [place] Posiflush) Vancomycin No Notes: For Bradley cleaning 3-07 adult l 22:00: patients [place] 00 only: Round to nearest 250 mg per Medical Staff approval MEDICATION WASTE Product Size: 1000 mg Product Wasted: ___ mg BD Normal No Notes: [facility]ori a Saline 3-07 (Same as: l Flush 22:00: BD [place] Posiflush) Vancomycin No Notes: For Braldey cleaning 3-07 adult l 22:00: patients [place] 00 only: Round to nearest 250 mg per Medical Staff approval MEDICATION WASTE Product Size: 1000 mg Product Wasted: ___ mg BD Normal No Notes: [facility]ori a Saline 3-07 (Same as: l Flush 22:00: BD [place] Posiflush) Vancomycin No Notes: For Bradley cleaning 3-07 adult l 22:00: patients [place] 00 only: Round to nearest 250 mg per Medical Staff approval MEDICATION WASTE Product Size: 1000 mg Product Wasted: ___ mg BD Normal No Notes: [facility]ori a Saline 3-07 (Same as: l Flush 22:00: BD [place] Posiflush) Vancomycin No Notes: For [place] cleaning 3-07 adult l 22:00: patients [place] 00 only: Round to nearest 250 mg per Medical Staff approval MEDICATION WASTE Product Size: 1000 mg Product Wasted: ___ mg Sodium 2018- No 25 mL, [facility] Chloride 3- Route: IV, l 0.9% IV 19:59: Start date: 05/09/18 13:59:00 [employer], Duration: 30 day, Stop date: 06/08/18 14:58:00 CDT, PRN Line Flush BD Normal No Notes: [facility]ori a Saline 3-07 (Same as: l Flush 19:59: BD [place] Posiflush) Sodium No 25 mL, [facility] Chloride 3-07 Route: IV, l 0.9% IV 19:59: Start date: 05/09/18 13:59:00 [employer], Duration: 30 day, Stop date: 06/08/18 14:58:00 CDT, PRN Line Flush BD Normal No Notes: [facility] a Saline 3-07 (Same as: l Flush 19:59: BD [place] 00 Posiflush) Sodium 2019-0 No 25 mL, [facility] Chloride 3-07 Route: IV, l 0.9% IV 19:59: Start [place] 00 date: 05/09/18 13:59:00 [employer], Duration: 30 day, Stop date: 06/08/18 14:58:00 CDT, PRN Line Flush BD Normal No Notes: [facility] a Saline 3-07 (Same as: l Flush 19:59: BD [place] 00 Posiflush) Sodium 2019-0 No 25 mL, [facility] Chloride 3-07 Route: IV, l 0.9% IV 19:59: Start [place] 00 date: 05/09/18 13:59:00 [employer], Duration: 30 day, Stop date: 06/08/18 14:58:00 CDT, PRN Line Flush BD Normal No Notes: [facility] a Saline 3-07 (Same as: l Flush 19:59: BD [place] 00 Posiflush) Sodium 2019-0 No 25 mL, [facility] Chloride 3-07 Route: IV, l 0.9% IV 19:59: Start [place] 00 date: 05/09/18 13:59:00 [employer], Duration: 30 day, Stop date: 06/08/18 14:58:00 CDT, PRN Line Flush BD Normal No Notes: Memori a Saline 3-07 (Same as: l Flush 19:59: BD [place] 00 Posiflush) BD Normal No Notes: [facility] a Saline 3-07 (Same as: l Flush 19:58: BD [place] 00 Posiflush) BD Normal 2018-0 No Notes: [facility] a Saline 3-07 (Same as: l Flush 19:58: BD [place] 00 Posiflush) BD Normal No Notes: [facility] a Saline 3-07 (Same as: l Flush 19:58: BD [place] 00 Posiflush) BD Normal No Notes: [facility] a Saline 3-07 (Same as: l Flush 19:58: BD [place] 00 Posiflush) BD Normal 2019-0 No Notes: [facility]ori a Saline 3-07 (Same as: l Flush 19:58: BD [place] 00 Posiflush) tramadol 2019-0 Yes 100 mg = 2 Mem oria hydrochlori 3-07 tab, PO, l de 50 MG 19:54: Bedtime, 0 Her [place] Oral Tablet 00 Refill(s) tramadol 2019-0 Yes 100 mg = 2 Mem oria hydrochlori 3-07 tab, PO, l de 50 MG 19:54: Bedtime, 0 Her [place] Oral Tablet 00 Refill(s) tramadol 2019-0 Yes 100 mg = 2 Mem o[facility] hydrochlori 3-07 tab, PO, l de 50 MG 19:54: Bedtime, 0 Her [place] Oral Tablet 00 Refill(s) tramadol 2019-0 Yes 100 mg = 2 [facility] o[facility] hydrochlori 3-07 tab, PO, l de 50 MG 19:54: Bedtime, 0 Her [place] Oral Tablet 00 Refill(s) tramadol 2018-0 Yes 100 mg = 2 Mem o[facility] hydrochlori 3-07 tab, PO, l de 50 MG 19:54: Bedtime, 0 Her [place] Oral Tablet 00 Refill(s) Cathflo 2019-0 No 1 mg, 1 [facility] Activase 2 3-07 mL, Route: l mg 19:28: INJ, Drug [place] injection 00 form: SOLN, ONCE, Dosing Weight 80.909, kg, Start date: 05/09/18 13:28:00 [employer], Stop date: 05/09/18 13:28:00 [employer] RO[employer], Occluded CVAD < 7 [place] alteplase 2 2019-0 No 1 mg, 1 Mem oria mg 3-07 mL, Route: l injection 19:28: INJ, Drug [place] 00 form: SOLN, ONCE, Dosing Weight 80.909, kg, Start date: 05/09/18 13:28:00 [employer], Stop date: 05/09/18 13:28:00 [employer] RO[employer], Occluded CVAD < 7 [place] Cathflo 2019-0 No 1 mg, 1 [facility] Activase 2 3-07 mL, Route: l mg 19:28: INJ, Drug [place] injection 00 form: SOLN, ONCE, Dosing Weight 80.909, kg, Start date: 05/09/18 13:28:00 [employer], Stop date: 05/09/18 13:28:00 [employer] RO[employer], Occluded CVAD < 7 [place] alteplase 2 2019-0 No 1 mg, 1 Mem oria mg 3-07 mL, Route: l injection 19:28: INJ, Drug Her [place] 00 form: SOLN, ONCE, Dosing Weight 80.909, kg, Start date: 05/09/18 13:28:00 [employer] RO[employer], Stop date: 05/09/18 13:28:00 [employer] RO[employer], Occluded CVAD < 7 [place] Cathflo 2019-0 No 1 mg, 1 [facility] Activase 2 3-07 mL, Route: l mg 19:28: INJ, Drug [place] injection 00 form: SOLN, ONCE, Dosing Weight 80.909, kg, Start date: 05/09/18 13:28:00 [employer] RO[employer], Stop date: 05/09/18 13:28:00 [employer] RO[employer], Occluded CVAD < 7 [place] alteplase 2 2019-0 No 1 mg, 1 Mem oria mg 3-07 mL, Route: l injection 19:28: INJ, Drug Her [place] 00 form: SOLN, ONCE, Dosing Weight 80.909, kg, Start date: 05/09/18 13:28:00 [employer], Stop date: 05/09/18 13:28:00 [employer]NA RO[employer], Occluded CVAD < 7 [place] Cathflo 2019-0 No 1 mg, 1 [facility] Activase 2 3-07 mL, Route: l mg 19:28: INJ, Drug [place] injection 00 form: SOLN, ONCE, Dosing Weight 80.909, kg, Start date: 05/09/18 13:28:00 [employer], Stop date: 05/09/18 13:28:00 [employer] RO[employer], [place]ccluded CVAD < 7 [place] alteplase 2 2019-0 No 1 mg, 1 Mem oria mg 3-07 mL, Route: l injection 19:28: INJ, Drug [place] 00 form: SOLN, ONCE, Dosing Weight 80.909, kg, Start date: 05/09/18 13:28:00 [employer] RO[employer], Stop date: 05/09/18 13:28:00 [employer]NA RO[employer], Occluded CVAD < 7 [place] Cathflo 2019-0 No 1 mg, 1 [facility] Activase 2 3-07 mL, Route: l mg 19:28: INJ, Drug [place] injection 00 form: SOLN, ONCE, Dosing Weight 80.909, kg, Start date: 05/09/18 13:28:00 [employer] RO[employer], Stop date: 05/09/18 13:28:00 [employer]NA RO[employer], Occluded CVAD < 7 [place] alteplase 2 2019-0 No 1 mg, 1 Mem oria mg 3-07 mL, Route: l injection 19:28: INJ, Drug [place] 00 form: SOLN, ONCE, Dosing Weight 80.909, kg, Start date: 05/09/18 13:28:00 [employer] RO[employer], Stop date: 05/09/18 13:28:00 [employer]NA RO[employer] C[employer], Occluded CVAD < 7 [place] Morphine 2018-0 No Notes: [facility] 3-07 (Same l 19:09: as:MORPhin [place] 00 e Sulfate) Acetaminoph No Notes: Do M emoria en 3-07 not exceed l 19:09: 4 gm/day. [place] 00 (Same as: Tylenol) Ondansetron No Notes: Kuldeep teto 3-07 (Same as: l 19:09: Zofran [place] 00 ODT) Glucagon 2018-0 No 1 mg, [facility]oria 3-07 Route: IM, l 19:09: Drug form: [place] 00 PDR/INJ, PRN, Dosing Weight 80.909, kg, PRN Blood Glucose Results, Start date: 05/09/18 13:09:00 [employer], Duration: 30 day, Stop date: 06/08/18 14:08:00 CDT Dextrose 2019-0 No 12.5 gm, [facility]or ia 50% Syringe 07 25 mL, l 19:09: Route: [place] 00 IVP, Drug Form: INJ, Dosing Weight 80.909, kg, PRN, PRN Blood Glucose Results, Start date: 05/09/18 13:09:00 [employer] RO[employer], Duration: 30 day, Stop date: 06/08/18 14:08:00 CDT Morphine 2018-0 No Notes: [facility] 3-07 (Same l 19:09: as:MORPhin [place] 00 e Sulfate) Acetaminoph No Notes: Do M emoria en 3-07 not exceed l 19:09: 4 gm/day. [place] 00 (Same as: Tylenol) Ondansetron No Notes: Kuldeep teto 3-07 (Same as: l 19:09: Zofran [place] 00 ODT) Morphine 2018-0 No Notes: [facility]oria - (Same l 19:09: as:MORPhin [place] 00 e Sulfate) Acetaminoph No Notes: Do M zenaria en 05-09 not exceed l 19:09: 4 gm/day. [place] 00 (Same as: Tylenol) Ondansetron No Notes: Kuldeep teto 3- (Same as: l 19:09: Zofran [place] 00 ODT) Glucagon 0 No 1 mg, Memoria 05-09 Route: IM, l 19:09: Drug form: [place] 00 PDR/INJ, PRN, Dosing Weight 80.909, kg, PRN Blood Glucose Results, Start date: 05/09/18 13:09:00 [employer], Duration: 30 day, Stop date: 06/08/18 14:08:00 CDT Dextrose 2018-0 No 12.5 gm, [facility] ia 50% Syringe 3- 25 mL, l 19:09: Route: [place] 00 IVP, Drug Form: INJ, Dosing Weight 80.909, kg, PRN, PRN Blood Glucose Results, Start date: 05/09/18 13:09:00 [employer] RO[employer], Duration: 30 day, Stop date: 06/08/18 14:08:00 CDT Glucagon 0 No 1 mg, [facility] 05-09 Route: IM, l 19:09: Drug form: [place] 00 PDR/INJ, PRN, Dosing Weight 80.909, kg, PRN Blood Glucose Results, Start date: 05/09/18 13:09:00 [employer] RO[employer], Duration: 30 day, Stop date: 06/08/18 14:08:00 CDT Dextrose 2018-0 No 12.5 gm, [facility] 50% Syringe 3-07 25 mL, l 19:09: Route: [place] 00 IVP, Drug Form: INJ, Dosing Weight 80.909, kg, PRN, PRN Blood Glucose Results, Start date: 05/09/18 13:09:00 [employer] RO[employer], Duration: 30 day, Stop date: 06/08/18 14:08:00 CDT Morphine 2018-0 No Notes: [facility] 3-07 (Same l 19:09: as:MORPhin [place] 00 e Sulfate) Acetaminoph No Notes: Do M emoria en 3- not exceed l 19:09: 4 gm/day. [place] 00 (Same as: Tylenol) Ondansetron 2018- No Notes: Kuldeep teto 3-07 (Same as: l 19:09: Zofran [place] 00 ODT) Glucagon 2019-0 No 1 mg, Memoria 307 Route: IM, l 19:09: Drug form: [place] 00 PDR/INJ, PRN, Dosing Weight 80.909, kg, PRN Blood Glucose Results, Start date: 05/09/18 13:09:00 [employer] RO[employer], Duration: 30 day, Stop date: 06/08/18 14:08:00 CDT Dextrose 2018-0 No 12.5 gm, [facility] ia 50% Syringe 3- 25 mL, l 19:09: Route: [place] 00 IVP, Drug Form: INJ, Dosing Weight 80.909, kg, PRN, PRN Blood Glucose Results, Start date: 05/09/18 13:09:00 [employer] RO[employer], Duration: 30 day, Stop date: 06/08/18 14:08:00 CDT Morphine 2018-0 No Notes: [facility] 3-07 (Same l 19:09: as:MORPhin [place] 00 e Sulfate) Acetaminoph No Notes: Do M emoria en - not exceed l 19:09: 4 gm/day. [place] 00 (Same as: Tylenol) Ondansetron No Notes: Kuldeep teto 3-07 (Same as: l 19:09: Zofran [place] 00 ODT) Glucagon 2019-0 No 1 mg, Memoria 307 Route: IM, l 19:09: Drug form: [place] 00 PDR/INJ, PRN, Dosing Weight 80.909, kg, PRN Blood Glucose Results, Start date: 05/09/18 13:09:00 [employer] RO[employer], Duration: 30 day, Stop date: 06/08/18 14:08:00 CDT Dextrose 2019-0 No 12.5 gm, [facility] ia 50% Syringe 3-07 25 mL, l 19:09: Route: [place] 00 IVP, Drug Form: INJ, Dosing Weight 80.909, kg, PRN, PRN Blood Glucose Results, Start date: 05/09/18 13:09:00 [employer]NA RO[employer], Duration: 30 day, Stop date: 06/08/18 14:08:00 CDT TRAMADOL 50 2019-0 Yes [id number] TAKE ONE [facility] mg tablet 3-07 TABLET BY ity o f 00:00: MOUTH FOUR [place] 00 TIMES A Medical DAY Branch TRAMADOL 50 2019-0 Yes [id number] TAKE ONE [facility] mg tablet 3-07 TABLET BY ity o f 00:00: MOUTH FOUR [place] 00 TIMES A Medical DAY Branch TRAMADOL 50 2018-0 2020- No [id number] TAKE ONE [facility] mg tablet 3-09 10-10 TABLET BY ity of 00:00: 00:00 MOUTH FOUR [place] 00 :00 TIMES A Medical DAY Branch TRAMADOL 50 2018-0 2020- No [id number] TAKE ONE [facility] mg tablet 3- 09-10 TABLET BY ity of 00:00: 00:00 MOUTH FOUR [place] 00 :00 TIMES A Medical DAY Branch midodrine 2019-0 Yes 2.5mg Take 1 [facility] rs 2.5 mg 2-08 tablet by ity of tablet 00:00: mouth 2 00 (two) Medical times Branch daily. midodrine 2019-0 Yes 2.5mg Take 1 [facility] rs 2.5 mg 2-08 tablet by ity of tablet 00:00: mouth 2 [place] 00 (two) Medical times Branch daily. midodrine 2018-0 2020- No 2.5mg Take 1 Univ ers 2.5 mg 2-08 09-10 tablet by ity of tablet 00:00: 00:00 mouth 2 [place] 00 :00 (two) Medical times Branch daily. midodrine 2018-0 2020- No 2.5mg Take 1 Univ ers 2.5 mg 2-08 09-10 tablet by ity of tablet 00:00: 00:00 mouth 2 [place] 00 :00 (two) Medical times Branch daily. Lasix 2017-03 No Notes: [facility] 2-29 (Same as: l 15:00: Lasix) July cause GI upset. Give with food or milk. Lasix 2017-03 No Notes: [facility] 2-29 (Same as: l 15:00: Lasix) July cause GI upset. Give with food or milk. Lasix 2017-03 No Notes: [facility] 2-29 (Same as: l 15:00: Lasix) May [place] 00 cause GI upset. Give with food or milk. Lasix 2017-03 No Notes: [facility] 2-29 (Same as: l 15:00: Lasix) May [place] 00 cause GI upset. Give with food or milk. Lasix 2017-03 No Notes: [facility] 2-29 (Same as: l 15:00: Lasix) May [place] 00 cause GI upset. Give with food [...] s with feeding tube less than 14 [place] (Dobhoff, J-tube etc) and pediatric and patients. Potassium 2017-03 No Notes: Memori a Chloride 2-28 (Same as: l 18:32: K-Dur 20) [place] 00 "Do Not Crush" Give with food and full glass of water For patients unable to swallow tablet, dissolve in one half glass of water. Allow about 2 minutes for the tablets to disintegra te. Stir before giving to prepare slurry and administer . Please exclude Patient s with feeding tube less than 14 [place] (Dobhoff, J-tube etc) and pediatric and patients. [...] s with feeding tube less than 14 [place] (Dobhoff, J-tube etc) and pediatric and patients. Potassium 2017-03 No Notes: Memori a Chloride 2-28 (Same as: l 18:32: K-Dur 20) [place] 00 "Do Not Crush" Give with food and full glass of water For patients unable to swallow tablet, dissolve in one half glass of water. Allow about 2 minutes for the tablets to disintegra te. Stir before giving to prepare slurry and administer . Please exclude Patient s with feeding tube less than 14 [place] (Dobhoff, J-tube etc) and pediatric and patients. Potassium 2017-1 No Notes: Memori a Chloride 2-28 (Same as: l 18:32: K-Dur 20) [place] 00 "Do Not Crush" Give with food and full glass of water For patients unable to swallow tablet, dissolve in one half glass of water. Allow about 2 minutes for the tablets to disintegra te. Stir before giving to prepare slurry and administer . Please exclude Patient s with feeding tube less than 14 [place] (Dobhoff, J-tube etc) and pediatric and patients. Rocephin 1 2017-03 No 2 gm, IV, Me moria g injection 2-28 Q24H, X 14 l 18:26: day, # 14 [place] 00 ea, 0 Refill(s), other Furosemide 2017-03 No 20 mg = 1 Me moria 20 MG Oral 2-28 tab, PO, l Tablet 18:26: Daily, # [place] 00 30 tab, 0 Refill(s), Pharmacy: [facility] [id number] Rocephin 1 2017-03 No 2 gm, IV, Me moria g injection 2-28 Q24H, X 14 l 18:26: day, # 14 [place] 00 ea, 0 Refill(s), other Furosemide 2017-03 No 20 mg = 1 Me moria 20 MG Oral 2-28 tab, PO, l Tablet 18:26: Daily, # [place] 00 30 tab, 0 Refill(s), Pharmacy: [facility] [id number] Rocephin 2017-03 No 2 gm, IV, Me moria g injection 2-28 Q24H, X 14 l 18:26: day, # 14 [place] 00 ea, 0 Refill(s), other Furosemide 2017-03 No 20 mg = 1 Me moria 20 MG Oral 2-28 tab, PO, l Tablet 18:26: Daily, # [place] 00 30 tab, 0 Refill(s), Pharmacy: [facility] [id number] Rocephin 1 2017-03 No 2 gm, IV, Me moria g injection 2-28 Q24H, X 14 l 18:26: day, # 14 [place] 00 ea, 0 Refill(s), other Furosemide 2017-03 No 20 mg = 1 Me moria 20 MG Oral 2-28 tab, PO, l Tablet 18:26: Daily, # [place] 00 30 tab, 0 Refill(s), Pharmacy: [facility] [id number] Rocephin 1 2017-03 No 2 gm, IV, Me moria g injection 2-28 Q24H, X 14 l 18:26: day, # 14 [place] 00 ea, 0 Refill(s), other Furosemide 2017-03 No 20 mg = 1 Me moria 20 MG Oral 2-28 tab, PO, l Tablet 18:26: Daily, # [place] 00 30 tab, 0 Refill(s), Pharmacy: [facility] [id number] Potassium 2017-03 No Notes: Memori a Chloride 2-28 (Same as: l 16:19: K-Dur 20) [place] 00 "Do Not Crush" Give with food and full glass of water For patients unable to swallow tablet, dissolve in one half glass of water. Allow about 2 minutes for the tablets to disintegra te. Stir before giving to prepare slurry and administer . Please exclude Patient s with feeding tube less than 14 [place] (Dobhoff, J-tube etc) and pediatric and patients. [...] s with feeding tube less than 14 [place] (Dobhoff, J-tube etc) and pediatric and patients. Potassium 2017-03 No Notes: Memori a Chloride 2-28 (Same as: l 16:19: K-Dur 20) [place] 00 "Do Not Crush" Give with food and full glass of water For patients unable to swallow tablet, dissolve in one half glass of water. Allow about 2 minutes for the tablets to disintegra te. Stir before giving to prepare slurry and administer . Please exclude Patient s with feeding tube less than 14 [place] (Dobhoff, J-tube etc) and pediatric and patients. [...] s with feeding tube less than 14 [place] (Dobhoff, J-tube etc) and pediatric and patients. Potassium 2018- No Notes: Memori a Chloride 2-28 (Same as: l 16:19: K-Dur 20) [place] 00 "Do Not Crush" Give with food and full glass of water For patients unable to swallow tablet, dissolve in one half glass of water. Allow about 2 minutes for the tablets to disintegra te. Stir before giving to prepare slurry and administer . Please exclude Patient s with feeding tube less than 14 [place] (Dobhoff, J-tube etc) and pediatric and patients. multivitami 2017-03 No Notes: Kuldeep teto n with 2-28 (Same l minerals 15:00: as:Thera-M Her fernandes 00 , Theragran- M) WASTE: F/P - Black; E - Municipal Trash Bin Give with food. multivitami 2017-03 No Notes: Kuldeep teto n with 2-28 (Same l minerals 15:00: as:Thera-Bradley [place] fernandes 00 , Theragran- M) [...] n 2-28 (Same as: l 03:00: Lipitor) [place] 00 Trazodone 2017-03 No Notes: Memori a Hydrochlori 2-28 (Same As: l de 50 MG 03:00: Desyrel) Marcia nn Oral Tablet 00 Mirtazapine 2017-03 No Notes: Kuldeep teto 2-28 (Same l 03:00: as:ero ) atorvastati 2017-03 No Notes: Kuldeep teto n 2-28 (Same as: l 03:00: Lipitor) Trazodone 2017-03 No Notes: Memori a Hydrochlori 2-28 (Same As: l de 50 MG 03:00: Desyrel) [place] nn Oral Tablet Mirtazapine 2017-03 No Notes: Kuldeep teto 2-28 (Same l 03:00: as:ero ) atorvastati 2017-03 No Notes: Kuldeep teto n 2-28 (Same as: l 03:00: Lipitor) [place] 00 Trazodone 2017-03 No Notes: Memori a Hydrochlori 2-28 (Same As: l de 50 MG 03:00: Desyrel) [place] nn Oral Tablet Mirtazapine 2017-03 No Notes: Kuldeep teto 2-28 (Same l 03:00: as:ero ) atorvastati 2017-03 No Notes: Kuldeep teto n 2-28 (Same as: l 03:00: Lipitor) Trazodone 2017-03 No Notes: Memori a Hydrochlori 2-28 (Same As: l de 50 MG 03:00: Desyrel) [place] nn Oral Tablet Mirtazapine 2017-03 No Notes: Kuldeep teto 2-28 (Same l 03:00: as:ero ) atorvastati 2017-03 No Notes: Kuldeep teto n 2-28 (Same as: l 03:00: Lipitor) Trazodone 2017-03 No Notes: Memori a Hydrochlori 2-28 (Same As: l de 50 MG 03:00: Desyrel) [place] nn Oral Tablet 00 Mirtazapine 2018-1 No Notes: Kuldeep teto 2-28 (Same l 03:00: as:Remeron [place] 00 ) Beneprotein 2017-03 No Notes: Kuldeep teto 7 gm pkt 2-27 (Same as: l 22:30: Beneprotei [place] 00 n) Beneprotein 2017-03 No Notes: Kuldeep teto 7 gm pkt 2-27 (Same as: l 22:30: Beneprotei [place] 00 n) Beneprotein 2017-03 No Notes: Kuldeep teto 7 gm pkt 2-27 (Same as: l 22:30: Beneprotei [place] 00 n) Beneprotein 2017-03 No Notes: Kuldeep teot 7 gm pkt 2-27 (Same as: l 22:30: Beneprotei [place] 00 n) Beneprotein 2017-03 No Notes: Kuldeep teto 7 gm pkt 2-27 (Same as: l 22:30: Beneprotei [place] 00 n) Ceftriaxone 2017-03 No Notes: Kuldeep teto 2-27 (Same As: l 19:00: Rocephin). [place] 00 Use with 100 mL NS and infuse over 30 min MEDICATION WASTE Product Size: 2000 mg Product Wasted: ___ mg Ceftriaxone 2017-03 No Notes: Kuldeep teto 2-27 (Same As: l 19:00: Rocephin). [place] 00 Use with 100 mL NS and infuse over 30 min MEDICATION WASTE Product Size: 2000 mg Product Wasted: ___ mg Ceftriaxone 2017-03 No Notes: Kuldeep teto 2-27 (Same As: l 19:00: Rocephin). [place] 00 Use with 100 mL NS and infuse over 30 min MEDICATION WASTE Product Size: 2000 mg Product Wasted: ___ mg Ceftriaxone 2017-03 No Notes: Kuldeep teto 2-27 (Same As: l 19:00: Rocephin). [place] 00 Use with 100 mL NS and infuse over 30 min MEDICATION WASTE Product Size: 2000 mg Product Wasted: ___ mg Ceftriaxone 2017-03 No Notes: Kuldeep teto 2-27 (Same As: l 19:00: Rocephin). [place] 00 Use with 100 mL NS and infuse over 30 min MEDICATION WASTE Product Size: 2000 mg Product Wasted: ___ mg ferrous 2017-03 No Notes: Memoria sulfate 2-27 Give with l 15:24: food. iron [place] 00 elemental [id number] as ferrous sulfate Dose=___mg elemental iron duloxetine 2017-03 No Notes: Memor ia 2-27 (Same as: l 15:24: Cymbalta) [place] 00 (Do Not Crush) clopidogrel 2017-03 No Notes: Kuldeep teto 2-27 (Same As: l 15:24: Plavix) [place] 00 Buspirone 2017-03 No Notes: Memori a 2-27 (Same As: l 15:24: BuSpar) [place] 00 Vancomycin 2017-03 No 2001 mg: Me moria 2-27 infuse l 15:24: over 2.5 [place] 00 hours metoprolol 2017-03 No Notes: Memor ia extended 2-27 (Same as: l release 15:24: Toprol XL) Herm ladi 00 Do Not Crush Lisinopril 2017-03 No Notes: Memor ia 2-27 (Same as: l 15:24: Prinivil, [place] 00 Zestril) ferrous 2017-03 No Notes: Memoria sulfate 2-27 Give with l 15:24: food. iron elemental [id number] as ferrous sulfate Dose=___mg elemental iron duloxetine 2017-03 No Notes: Memor ia 2-27 (Same as: l 15:24: Cymbalta) [place] 00 (Do Not Crush) clopidogrel 2017-03 No Notes: Kuldeep teto 2-27 (Same As: l 15:24: Plavix) [place] 00 Buspirone 2017-03 No Notes: Memori a 2-27 (Same As: l 15:24: BuSpar) [place] 00 Vancomycin 2017-03 No 2001 mg: Me moria 2-27 infuse l 15:24: over 2.5 [place] 00 hours metoprolol 2017-03 No Notes: Memor ia extended 2-27 (Same as: l release 15:24: Toprol XL) [place] 00 Do Not Crush Lisinopril 2017-03 No Notes: Memor ia 2-27 (Same as: l 15:24: Prinivil, [place] 00 Zestril) ferrous 2017-03 No Notes: Memoria sulfate 2-27 Give with l 15:24: food. iron [place] elemental [id number] as ferrous sulfate Dose=___mg elemental iron duloxetine 2017-03 No Notes: Memor ia 2-27 (Same as: l 15:24: Cymbalta) [place] 00 (Do Not Crush) clopidogrel 2017-03 No Notes: Kuldeep teto 2-27 (Same As: l 15:24: Plavix) [place] 00 Buspirone 2017-03 No Notes: Memori a 2-27 (Same As: l 15:24: BuSpar) [place] 00 Vancomycin 2017-03 No 2001 mg: Me [...] 2-27 Give with l 15:24: food. iron [place] 00 elemental [id number] as ferrous sulfate Dose=___mg elemental iron duloxetine 2017-03 No Notes: Memor ia 2-27 (Same as: l 15:24: Cymbalta) [place] 00 (Do Not Crush) clopidogrel 2017-03 No Notes: Kuldeep teto 2-27 (Same As: l 15:24: Plavix) [place] 00 Buspirone 2017-03 No Notes: Memori a 2-27 (Same As: l 15:24: BuSpar) [place] 00 Vancomycin 2017-03 No 2001 mg: Me [...] l 15:24: food. iron [place] 00 elemental [id number] as ferrous sulfate Dose=___mg elemental iron duloxetine 2017-03 No Notes: Memor ia 2-27 (Same as: l 15:24: Cymbalta) (Do Not Crush) clopidogrel 2017-03 No Notes: Kuldeep teto 2-27 (Same As: l 15:24: Plavix) Buspirone 2017-03 No Notes: Memori a 2-27 (Same As: l 15:24: BuSpar) Vancomycin 2017-03 No 2001 mg: Me moria 2-27 infuse l 15:24: over 2.5 hours metoprolol 2017-03 No Notes: Memor ia [...] ia 2-27 (Same as: l 15:00: Lovenox) [place] 00 Saline 2017-03 No Notes: [facility]oria Flush [...] 0.9% 2-27 (Same as: l 15:00: BD [place] 00 Posiflush) Furosemide 2017-03 No Notes: Memor ia 2-27 (Same as: l 15:00: Lasix) [place] 00 MEDICATION WASTE Product Size: 40 mg Product Wasted: ___ mg Enoxaparin 2017-03 No Notes: Memor ia 2-27 (Same as: l 15:00: Lovenox) [place] 00 Saline 2017-03 No Notes: [facility] Flush 0.9% 2-27 (Same as: l 15:00: BD [place] 00 Posiflush) Furosemide 2017-03 No Notes: Memor ia 2-27 (Same as: l 15:00: Lasix) [place] 00 MEDICATION WASTE Product Size: 40 mg Product Wasted: ___ mg Enoxaparin 2017-03 No Notes: Memor ia 2- (Same as: l 15:00: Lovenox) [place] 00 Saline 2017-03 No Notes: [facility] Flush 0.9% 2-27 (Same as: l 15:00: BD [place] 00 Posiflush) Furosemide 2017-03 No Notes: Memor ia 2- (Same as: l 15:00: Lasix) [place] MEDICATION WASTE Product Size: 40 mg Product Wasted: ___ mg Dexamethaso 2017-03 No Notes: Kuldeep teto ne 05-01 Concentrat l 09:59: ion: [place] 00 4mg/ml Dexamethaso 2017-03 No Notes: Kuldeep teto ne 05-01 Concentrat l 09:59: ion: [place] 00 4mg/ml Dexamethaso 2017-03 No Notes: Kuldeep teto ne 05-01 Concentrat l 09:59: ion: [place] 00 4mg/ml Dexamethaso 2017-03 No Notes: Kuldeep teto ne 05-01 Concentrat l 09:59: ion: [place] 00 4mg/ml Dexamethaso 2017-03 No Notes: Kuldeep teto ne 05-01 Concentrat l 09:59: ion: [place] 00 4mg/ml Benadryl 2017-03 No Notes: [facility]oria 2-27 (Same as: l 08:25: Benadryl) [place] 00 Benadryl 2017-03 No Notes: [facility]oria 2-27 (Same as: l 08:25: Benadryl) [place] 00 Benadryl 2017-03 No Notes: [facility]oria 2-27 (Same as: l 08:25: Benadryl) [place] 00 Benadryl 2017-03 No Notes: [facility]oria 2-27 (Same as: l 08:25: Benadryl) [place] 00 Benadryl 2017-03 No Notes: [facility]oria 2-27 (Same as: l 08:25: Benadryl) [place] 00 Saline 2017-03 No Notes: [facility] Flush 0.9% 2-27 (Same as: l 08:24: BD [place] 00 Posiflush) Saline 2017-03 No Notes: [facility] Flush 0.9% 2-27 (Same as: l 08:24: BD [place] 00 Posiflush) Saline 2017-03 No Notes: [facility] Flush 0.9% 2-27 (Same as: l 08:24: BD [place] 00 Posiflush) Saline 2017-03 No Notes: [facility] Flush 0.9% 2-27 (Same as: l 08:24: BD [place] 00 Posiflush) Saline 2017-03 No Notes: [facility] Flush 0.9% 2-27 (Same as: l 08:24: BD [place] 00 Posiflush) Benadryl 2017-03 No Notes: Memoria 2-27 (Same as: l 06:45: Benadryl) [place] 00 Dexamethaso 2017-03 No 12 mg, 3 Me moria ne 2-27 mL, Route: l 06:45: IVP, Drug [place] 00 form: INJ, ONCE, Dosing Weight 83.182, kg, Priority: STAT, Start date: 02/28/18 0:45:00 [employer], 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/28/18 0:45:00 [employer] Benadryl 2017-03 No Notes: Memoria 2-27 (Same as: l 06:45: Benadryl) [place] Dexamethaso 2017-03 No 12 mg, 3 Me moria ne 2-27 mL, Route: l 06:45: IVP, Drug [place] 00 form: INJ, ONCE, Dosing Weight 83.182, kg, Priority: STAT, Start date: 02/28/18 0:45:00 [employer], 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/28/18 0:45:00 [employer] Benadryl 2017-03 No Notes: Memoria 2-27 (Same as: l 06:45: Benadryl) [place] Dexamethaso 2017-03 No 12 mg, 3 Me moria ne 2-27 mL, Route: l 06:45: IVP, Drug [place] 00 form: INJ, ONCE, Dosing Weight 83.182, kg, Priority: STAT, Start date: 02/28/18 0:45:00 [employer], 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/28/18 0:45:00 [employer] Benadryl 2017-03 No Notes: Memoria 2-27 (Same as: l 06:45: Benadryl) [place] Dexamethaso 2017-03 No 12 mg, 3 Me moria ne 2-27 mL, Route: l 06:45: IVP, Drug [place] 00 form: INJ, ONCE, Dosing Weight 83.182, kg, Priority: STAT, Start date: 02/28/18 0:45:00 [employer], 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/28/18 0:45:00 [employer] Benadryl 2017-03 No Notes: Memoria 2-27 (Same as: l 06:45: Benadryl) [place] Dexamethaso 2017-03 No 12 mg, 3 Me moria ne 2-27 mL, Route: l 06:45: IVP, Drug [place] 00 form: INJ, ONCE, Dosing Weight 83.182, kg, Priority: STAT, Start date: 02/28/18 0:45:00 [employer], 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/28/18 0:45:00 [employer] tramadol 2017-03 No 50 mg = 1 [...] tab, PO, l tablet 17:58: Daily, 0 [place] 00 Refill(s) ferrous 2017-03 No 325 mg [...] tab, PO, l tablet 17:58: Daily, 0 [place] 00 Refill(s) ferrous 2017-03 No 325 mg [...] tab, PO, l tablet 17:58: Daily, 0 [place] 00 Refill(s) ferrous 2017-03 No 325 mg = 1 Kuldeep teto sulfate 325 2-20 tab, PO, l MG Oral 17:58: Daily, 0 Arsenio n Tablet 00 Refill(s) vancomycin 2017-03 No 1.25 gm = Me moria 1.25 g/250 2-20 250 mL, l mL-NaCl 17:58: IVPB, [place] 0.9% 00 Q12H, 0 intravenous Refill(s) solution [...] tab, PO, l tablet 17:58: Daily, 0 [place] 00 Refill(s) ferrous 2017-03 No 325 mg [...] moria 2-20 infuse l 03:00: over 2.5 [place] 00 hours Vancomycin 2017-03 No 2001 mg: Me moria 2-20 infuse l 03:00: over 2.5 [place] 00 hours Vancomycin 2017-03 No 2001 mg: Me moria 2-20 infuse l 03:00: over 2.5 [place] 00 hours Fleet Enema 2017-03 No 12 years, Memoria 2-19 Pediatric l 17:47: Dosing [place] 00 Fleet Enema 2017-03 No 12 years, Memoria 2-19 Pediatric l 17:47: Dosing [place] 00 Fleet Enema 2017-03 No 12 years, Memoria 2-19 Pediatric l 17:47: Dosing [place] 00 Fleet Enema 2017-03 No 12 years, Memoria 2-19 Pediatric l 17:47: Dosing [place] 00 Fleet Enema 2017-03 No 12 years, Memoria 2-19 Pediatric l 17:47: Dosing [place] 00 Lisinopril 2017-03 No Notes: Memor ia 2-19 (Same as: l 15:18: Prinivil, [place] 00 Zestril) Lisinopril 2017-03 No Notes: Memor ia 2-19 (Same as: l 15:18: Prinivil, [place] 00 Zestril) Lisinopril 2017-03 No Notes: Memor ia 2-19 (Same as: l 15:18: Prinivil, [place] 00 Zestril) Lisinopril 2017-03 No Notes: Memor ia 2-19 (Same as: l 15:18: Prinivil, [place] 00 Zestril) Lisinopril 2017-03 No Notes: Memor ia 2-19 (Same as: l 15:18: Prinivil, [place] 00 Zestril) Sodium 2017-03 No 25 mL, Memoria Chloride 2-18 Route: IV, l 0.9% IV 14:04: Start date: 02/19/18 8:04:00 [employer], Duration: 30 day, Stop date: 03/21/18 8:03:00 [employer], PRN Line Flush BD Normal 2017-03 No Notes: Memori a Saline 2-18 (Same as: l Flush 14:04: BD [place] 00 Posiflush) Sodium 2017-03 No 25 mL, [facility] Chloride 2-18 Route: IV, l 0.9% IV 14:04: Start date: 02/19/18 8:04:00 [employer], Duration: 30 day, Stop date: 03/21/18 8:03:00 [employer], PRN Line Flush BD Normal 2017-03 No Notes: Memori a Saline 2-18 (Same as: l Flush 14:04: BD [place] 00 Posiflush) Sodium 2017-03 No 25 mL, [facility] Chloride 2-18 Route: IV, l 0.9% IV 14:04: Start date: 02/19/18 8:04:00 [employer], Duration: 30 day, Stop date: 03/21/18 8:03:00 [employer], PRN Line Flush BD Normal 2017-03 No Notes: Memori a Saline 2-18 (Same as: l Flush 14:04: BD [place] 00 Posiflush) Sodium 2017-03 No 25 mL, [facility] Chloride 2-18 Route: IV, l 0.9% IV 14:04: Start date: 02/19/18 8:04:00 [employer], Duration: 30 day, Stop date: 03/21/18 8:03:00 [employer], PRN Line Flush BD Normal 2017-03 No Notes: Memori a Saline 2-18 (Same as: l Flush 14:04: BD [place] Posiflush) Sodium 2017-03 No 25 mL, [facility] Chloride 2-18 Route: IV, l 0.9% IV 14:04: Start date: 02/19/18 8:04:00 [employer], Duration: 30 day, Stop date: 03/21/18 8:03:00 [employer], PRN Line Flush BD Normal 2017-03 No Notes: Memori a Saline 2-18 (Same as: l Flush 14:04: BD [place] 00 Posiflush) Zinc 2017-03 No Notes: [facility] Sulfate 2-17 (Zinc l 19:30: sulfate [place] 00 capsule) - 220 mg Zinc sulfate = 50 mg elemental zinc Same as Zinc Sulfate Zinc 2017-03 No Notes: [facility] Sulfate 2-17 (Zinc l 19:30: sulfate [place] capsule) - 220 mg Zinc sulfate = 50 mg elemental zinc Same as Zinc Sulfate Zinc 2017-03 No Notes: [facility] Sulfate 2-17 (Zinc l 19:30: sulfate [place] capsule) - 220 mg Zinc sulfate = [...] pkt 2-17 (Same as: l 18:38: Beneprotei [place] 00 n) Beneprotein 2017-03 No Notes: Kuldeep teto 7 gm pkt 2-17 (Same as: l 18:38: Beneprotei [place] 00 n) Beneprotein 2017-03 No Notes: Kuldeep teto 7 gm pkt 2-17 (Same as: l 18:38: Beneprotei [place] 00 n) Beneprotein 2017-03 No Notes: Kuldeep teto 7 gm pkt 2-17 (Same as: l 18:38: Beneprotei [place] 00 n) Beneprotein 2017-03 No Notes: Kuldeep teto 7 gm pkt 2-17 (Same as: l 18:38: Beneprotei [place] 00 n) ferrous 2017-03 No Notes: Memoria sulfate 2-17 Give with l 16:37: food. iron [place] 00 elemental [id number] as ferrous sulfate Dose=___mg elemental iron ferrous 2017-03 No Notes: Memoria sulfate 2-17 Give with l 16:37: food. iron [place] 00 elemental [id number] as ferrous sulfate Dose=___mg elemental iron ferrous 2017-03 No Notes: Memoria sulfate 2-17 Give with l 16:37: food. iron [place] 00 elemental [id number] as ferrous sulfate Dose=___mg elemental iron ferrous 2017-03 No Notes: Memoria sulfate 2-17 Give with l 16:37: food. iron [place] 00 elemental [id number] as ferrous sulfate Dose=___mg elemental iron ferrous 2017-03 No Notes: Memoria sulfate 2-17 Give with l 16:37: food. iron [place] 00 elemental [id number] as ferrous sulfate Dose=___mg elemental iron Docusate 2017-03 No Notes: Memoria Sodium 100 2-17 (Same as: l MG Oral 03:00: Colace) [place] Capsule 00 (Do Not Crush) Docusate 2017-03 No Notes: [facility] Sodium 100 2-17 (Same as: l MG Oral 03:00: Colace) [place] Capsule 00 (Do Not Crush) Docusate 2017-03 No Notes: [facility] Sodium 100 2-17 (Same as: l MG Oral 03:00: Colace) [place] Capsule 00 (Do Not Crush) Docusate 2017-03 No Notes: [facility] Sodium 100 2-17 (Same as: l MG Oral 03:00: Colace) [place] Capsule 00 (Do Not Crush) Docusate 2017-03 No Notes: [facility] Sodium 100 2-17 (Same as: l MG Oral 03:00: Colace) [place] Capsule 00 (Do Not Crush) Miralax 2017-03 No Notes: Memoria 2-16 Dissolve l 15:49: in 8 oz of [place] 00 water or juice. (Same as: Miralax) Miralax 2017-03 No Notes: Memoria 2-16 Dissolve l 15:49: in 8 oz of [place] 00 water or juice. (Same as: Miralax) [...] moria 2-15 infuse l 21:00: over 2.5 [place] 00 hours Vancomycin 2017-03 No 2001 mg: Me moria 2-15 infuse l 21:00: over 2.5 [place] 00 hours Vancomycin 2017-03 No 2001 mg: Me moria 2-15 infuse l 21:00: over 2.5 [place] 00 hours Saline 2017-03 No Notes: [facility] Flush 0.9% 2-14 (Same as: l 22:00: BD [place] 00 Posiflush) Saline 2017-03 No Notes: [facility] Flush 0.9% 2-14 (Same as: l 22:00: BD [place] 00 Posiflush) Saline 2017-03 No Notes: [facility] Flush 0.9% 2-14 (Same as: l 22:00: BD [place] 00 Posiflush) Saline 2017-03 No Notes: [facility] Flush 0.9% 2-14 (Same as: l 22:00: BD [place] 00 Posiflush) Saline 2017-03 No Notes: [facility] Flush 0.9% 2-14 (Same as: l 22:00: BD [place] 00 Posiflush) Saline 2017-03 No Notes: [facility] Flush 0.9% 2-14 (Same as: l 17:44: BD [place] 00 Posiflush) Saline 2017-03 No Notes: [facility]oria Flush 0.9% 2-14 (Same as: l 17:44: BD [place] 00 Posiflush) Saline 2017-03 No Notes: [facility] Flush 0.9% 2-14 (Same as: l 17:44: BD [place] 00 Posiflush) Saline 2017-03 No Notes: [facility]oria Flush 0.9% 2-14 (Same as: l 17:44: BD [place] 00 Posiflush) Saline 2017-03 No Notes: [facility] Flush 0.9% 2-14 (Same as: l 17:44: BD [place] 00 Posiflush) morphine 2017-03 No Notes: [facility]oria Sulfate 2-14 (Same l 15:35: as:MORPhin [place] 00 e Sulfate) morphine 2017-03 No Notes: [facility] Sulfate 2-14 (Same l 15:35: as:MORPhin [place] 00 e Sulfate) morphine 2017-03 No Notes: [facility] Sulfate 2-14 (Same l 15:35: as:MORPhin [place] 00 e Sulfate) morphine 2017-03 No Notes: [facility] Sulfate 2-14 (Same l 15:35: as:MORPhin [place] 00 e Sulfate) morphine 2017-03 No Notes: [facility] Sulfate 2-14 (Same l 15:35: as:MORPhin [place] 00 e Sulfate) Docusate 2017-03 No Notes: [facility]oria Sodium 100 2-14 (Same as: l MG Oral 15:00: Colace) [place] Capsule 00 (Do Not Crush) Enoxaparin 2017-03 No Notes: Memor ia 2-14 (Same as: l 15:00: Lovenox) [place] 00 Docusate 2017-03 No Notes: [facility]oria Sodium 100 2-14 (Same as: l MG Oral 15:00: Colace) [place] Capsule 00 (Do Not Crush) Enoxaparin 2017-03 No Notes: Memor ia 2-14 (Same as: l 15:00: Lovenox) [place] 00 Docusate 2017-03 No Notes: Memoria Sodium 100 2-14 (Same as: l MG Oral 15:00: Colace) [place] Capsule 00 (Do Not Crush) Enoxaparin 2017-03 No Notes: Memor ia 2-14 (Same as: l 15:00: Lovenox) [place] 00 Docusate 2017-03 No Notes: Memoria Sodium 100 2-14 (Same as: l MG Oral 15:00: Colace) [place] Capsule 00 (Do Not Crush) Enoxaparin 2017-03 No Notes: Memor ia 2-14 (Same as: l 15:00: Lovenox) [place] 00 Docusate 2017-03 No Notes: [facility]oria Sodium 100 2-14 (Same as: l MG Oral 15:00: Colace) [place] Capsule 00 (Do Not Crush) Enoxaparin 2017-03 No Notes: Memor ia 2-14 (Same as: l 15:00: Lovenox) [place] 00 morphine 2017-03 No Notes: Memoria 0.5 mg/mL 2-14 (Same l preservativ 13:38: as:MORPhin [place] e-free 00 e Sulfate) injectable solution morphine 2017-03 No Notes: [facility]oria 0.5 mg/mL 2-14 (Same l preservativ 13:38: as:MORPhin [place] e-free 00 e Sulfate) injectable solution morphine 2017-03 No Notes: [facility] 0.5 mg/mL 2-14 (Same l preservativ 13:38: as:MORPhin [place] e-free 00 e Sulfate) injectable solution morphine 2017-03 No Notes: [facility] 0.5 mg/mL 2-14 (Same l preservativ 13:38: as:MORPhin [place] e-free 00 e Sulfate) injectable solution morphine 2017-03 No Notes: [facility] 0.5 mg/mL 2-14 (Same l preservativ 13:38: as:MORPhin [place] e-free 00 e Sulfate) injectable solution Mirtazapine 2017-03 No Notes: Kuldeep teto 2-14 (Same l 03:00: as:Remeron [place] 00 ) Mirtazapine 2017-03 No Notes: Kuldeep teto 2-14 (Same l 03:00: as:Remeron [place] 00 ) Mirtazapine 2017-03 No Notes: Kuldeep teto 2-14 (Same l 03:00: as:Remeron [place] 00 ) Mirtazapine 2017-03 No Notes: Kuldeep [...] Total Volume: 1,000, Start date: 02/14/18 17:46:00 [employer], Duration: 30 day, Stop date: 03/16/18 17:45:00 [employer], 2.1, m2 Dulcolax 2017-03 No Notes: Memoria [...] / 2-13 (Same as: l Hydrocodone 23:46: [place] Marcia nn Bitartrate 00 325/5) Do 5 MG Oral not exceed Tablet 4gm/day of acetaminop hen. Saline 2017-03 No Notes: [facility]oria Flush 0.9% 2-13 (Same as: l 23:46: BD [place] 00 Posiflush) Sodium 2017-03 No 1,000 mL, Memori a Chloride 2-13 Rate: 100 l 0.45% IV 23:46: ml/hr, [place] 1,000 mL 00 Infuse over: 10 hr, Route: IV, Dosing Weight 85 kg, Total Volume: 1,000, Start date: 02/14/18 17:46:00 [employer], Duration: 30 day, Stop date: 03/16/18 17:45:00 [employer], 2.1, m2 Dulcolax 2017-03 No Notes: [facility] Laxative 2-13 (Same As: l 23:46: Dulcolax, [place] 00 Correctol) (Do Not Crush) "Do Not Crush" Ondansetron 2017-03 No Notes: Kuldeep teto 2-13 (Same as: l 23:46: Zofran [place] 00 ODT) Diphenhydra 2017-03 No Notes: Kuldeep teto mine 2-13 (Same as: l 23:46: Benadryl) [place] 00 Acetaminoph 2017-03 No Notes: Max Memoria en 2-13 acetaminop l 23:46: hen = 4000 [place] 00 mg/day (4 gm/day). (Same as: Tylenol) Acetaminoph 2017-03 No Notes: Kuldeep teto en 325 MG / 2-13 (Same as: l Hydrocodone 23:46: [place] nn Bitartrate 00 325/5) Do 5 MG Oral not exceed Tablet 4gm/day of acetaminop hen. Saline 2017-03 No Notes: Mem[facility] Flush 0.9% 2-13 (Same as: l 23:46: BD [place] 00 Posiflush) Sodium 2017-03 No 1,000 mL, Memori a Chloride 2-13 Rate: 100 l 0.45% IV 23:46: ml/hr, [place] 1,000 mL 00 Infuse over: 10 hr, Route: IV, Dosing Weight 85 kg, Total Volume: 1,000, Start date: 02/14/18 17:46:00 [employer], Duration: 30 day, Stop date: 03/16/18 17:45:00 [employer], 2.1, m2 Dulcolax 2017-03 No Notes: Memoria [...] 2-13 acetaminop l 23:46: hen = 4000 [place] 00 mg/day (4 gm/day). (Same as: Tylenol) Acetaminoph 2017-03 No Notes: Kuldeep teto en 325 MG / 2-13 (Same as: l Hydrocodone 23:46: [place] nn Bitartrate 00 325/5) Do 5 MG Oral not exceed Tablet 4gm/day of acetaminop hen. Saline 2017-03 No Notes: [facility] Flush 0.9% 2-13 (Same as: l 23:46: BD [place] 00 Posiflush) Sodium 2017-03 No 1,000 mL, Memori a Chloride 2-13 Rate: 100 l 0.45% IV 23:46: ml/hr, [place] 1,000 mL 00 Infuse over: 10 hr, Route: IV, Dosing Weight 85 kg, Total Volume: 1,000, Start date: 02/14/18 17:46:00 [employer], Duration: 30 day, Stop date: 03/16/18 17:45:00 [employer], 2.1, m2 Dulcolax 2017-03 No Notes: [facility] Laxative 2-13 (Same As: l 23:46: Dulcolax, [place] 00 Correctol) (Do Not Crush) "Do Not Crush" Ondansetron 2017-03 No Notes: Kuldeep teto 2-13 (Same as: l 23:46: Zofran [place] 00 ODT) Diphenhydra 2017-03 No Notes: Kuldeep teto mine 2-13 (Same as: l 23:46: Benadryl) [place] 00 Acetaminoph 2017-03 No Notes: Max [facility] en 2-13 acetaminop l 23:46: hen = 4000 [place] 00 mg/day (4 gm/day). (Same as: Tylenol) Acetaminoph 2017-03 No Notes: Kuldeep teto en 325 MG / 2-13 (Same as: l Hydrocodone 23:46: [place] nn Bitartrate 00 325/5) Do 5 MG Oral not exceed Tablet 4gm/day of acetaminop hen. Saline 2017-03 No Notes: [facility] Flush 0.9% 2-13 (Same as: l 23:46: BD [place] 00 Posiflush) Sodium 2017-03 No 1,000 mL, Memori a Chloride 2-13 Rate: 100 l 0.45% IV 23:46: ml/hr, [place] 1,000 mL 00 Infuse over: 10 hr, Route: IV, Dosing Weight 85 kg, Total Volume: 1,000, Start date: 02/14/18 17:46:00 [employer], Duration: 30 day, Stop date: 03/16/18 17:45:00 [employer], 2.1, m2 Dulcolax 2017-03 No Notes: Memoria Laxative 2-13 (Same As: l 23:46: Dulcolax, [place] 00 Correctol) (Do Not Crush) "Do Not Crush" Ondansetron 2017-03 No Notes: Kuldeep teto 2-13 (Same as: l 23:46: Zofran [place] 00 ODT) Diphenhydra 2017-03 No Notes: Kuldeep teto mine 2-13 (Same as: l 23:46: Benadryl) [place] 00 Acetaminoph 2017-03 No Notes: Max Memoria en 2-13 acetaminop l 23:46: hen = 4000 [place] 00 mg/day (4 gm/day). (Same as: Tylenol) Acetaminoph 2017-03 No Notes: Kuldeep teto en 325 MG / 2-13 (Same as: l Hydrocodone 23:46: [place] Marcia nn Bitartrate 00 325/5) Do 5 MG Oral not exceed Tablet 4gm/day of acetaminop hen. sugammadex 2017-03 No Route: IV, M emoria (ANES) 2-13 Drug form: l 22:11: SOLN, [place] 00 ONCE, 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/14/18 16:11:00 [employer] sugammadex 2017-03 No Route: IV, M emoria (ANES) 2-13 Drug form: l 22:11: SOLN, [place] 00 ONCE, 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/14/18 16:11:00 [employer] sugammadex 2017-03 No Route: IV, M emoria (ANES) 2-13 Drug form: l 22:11: SOLN, [place] 00 ONCE, 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/14/18 16:11:00 [employer] sugammadex 2017-03 No Route: IV, M emoria (ANES) 2-13 Drug form: l 22:11: SOLN, [place] 00 ONCE, 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/14/18 16:11:00 [employer] sugammadex 2017-03 No Route: IV, M emoria (ANES) 2-13 Drug form: l 22:11: SOLN, [place] 00 ONCE, 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/14/18 16:11:00 [employer] ePHEDrine 2017-03 No Route: IV, Me moria (ANES) 2-13 Drug form: l 22:07: INJ, ONCE, 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/14/18 16:07:00 [employer] ePHEDrine 2017-03 No Route: IV, Me moria (ANES) 2-13 Drug form: l 22:07: INJ, ONCE, 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/14/18 16:07:00 [employer] ePHEDrine 2017-03 No Route: IV, Me moria (ANES) 2-13 Drug form: l 22:07: INJ, ONCE, 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/14/18 16:07:00 [employer] ePHEDrine 2017-03 No Route: IV, Me moria (ANES) 2-13 Drug form: l 22:07: INJ, ONCE, 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/14/18 16:07:00 [employer] ePHEDrine 2017-03 No Route: IV, Me moria (ANES) 2-13 Drug form: l 22:07: INJ, ONCE, 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/14/18 16:07:00 [employer] succinylcho 2017-03 No Route: IV, Memoria line (ANES) 2-13 Drug form: l 22:02: INJ, ONCE, 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/14/18 16:02:00 [employer] phenylephri 2017-03 No Route: IV, Memoria ne (ANES) 2-13 Drug form: l 22:02: INJ, ONCE, 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/14/18 16:02:00 [employer] dexamethaso 2017-03 No Route: IV, Memoria ne (ANES) 2-13 Drug form: l 22:02: INJ, ONCE, 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/14/18 16:02:00 [employer] [employer] ondansetron 2017-03 No Route: IV, Memoria (ANES) 2-13 Drug form: l 22:02: INJ, ONCE, 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/14/18 16:02:00 [employer] succinylcho 2017-03 No Route: IV, Memoria line (ANES) 2-13 Drug form: l 22:02: INJ, ONCE, 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/14/18 16:02:00 [employer] phenylephri 2018- No Route: IV, Memoria ne (ANES) 2-13 Drug form: l 22:02: INJ, ONCE, 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/14/18 16:02:00 [employer] dexamethaso 2018- No Route: IV, Memoria ne (ANES) 2-13 Drug form: l 22:02: INJ, ONCE, 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/14/18 16:02:00 [employer] ondansetron 2018- No Route: IV, Memoria (ANES) 2-13 Drug form: l 22:02: INJ, ONCE, 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/14/18 16:02:00 [employer] succinylcho 2018- No Route: IV, Memoria line (ANES) 2-13 Drug form: l 22:02: INJ, ONCE, 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/14/18 16:02:00 [employer] phenylephri 2018- No Route: IV, Memoria ne (ANES) 2-13 Drug form: l 22:02: INJ, ONCE, 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/14/18 16:02:00 [employer] dexamethaso 2017-03 No Route: IV, Memoria ne (ANES) 2-13 Drug form: l 22:02: INJ, ONCE, 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/14/18 16:02:00 [employer] ondansetron 2018 No Route: IV, Memoria (ANES) 2-13 Drug form: l 22:02: INJ, ONCE, 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/14/18 16:02:00 [employer] succinylcho 2017-03 No Route: IV, Memoria line (ANES) 2-13 Drug form: l 22:02: INJ, ONCE, 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/14/18 16:02:00 [employer] phenylephri 2018- No Route: IV, Memoria ne (ANES) 2-13 Drug form: l 22:02: INJ, ONCE, 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/14/18 16:02:00 [employer] dexamethaso 2018- No Route: IV, Memoria ne (ANES) 2-13 Drug form: l 22:02: INJ, ONCE, 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/14/18 16:02:00 [employer] ondansetron 2017-03 No Route: IV, Memoria (ANES) 2-13 Drug form: l 22:02: INJ, ONCE, 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/14/18 16:02:00 [employer] succinylcho 2017-03 No Route: IV, Memoria line (ANES) 2-13 Drug form: l 22:02: INJ, ONCE, 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/14/18 16:02:00 [employer] phenylephri 2017-03 No Route: IV, Memoria ne (ANES) 2-13 Drug form: l 22:02: INJ, ONCE, 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/14/18 16:02:00 [employer] dexamethaso 2017-03 No Route: IV, Memoria ne (ANES) 2-13 Drug form: l 22:02: INJ, ONCE, 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/14/18 16:02:00 [employer] ondansetron 2017-03 No Route: IV, Memoria (ANES) 2-13 Drug form: l 22:02: INJ, ONCE, 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/14/18 16:02:00 [employer] fentaNYL 2017-03 No Route: IV, Mem oria (ANES) 2-13 Drug form: l 21:57: INJ, ONCE, 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/14/18 15:57:00 [employer] lidocaine 2017-03 No Route: IV, Me moria (ANES) 2-13 Drug form: l 21:57: INJ, ONCE, 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/14/18 15:57:00 [employer] propofol 2017-03 No Route: IV, Mem oria (ANES) 2-13 Drug form: l 21:57: INJ, ONCE, 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/14/18 15:57:00 [employer] rocuronium 2017- No Route: IV, M emoria (ANES) 2-13 Drug form: l 21:57: INJ, ONCE, 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/14/18 15:57:00 [employer] midazolam 2017-03 No Route: IV, Me moria (ANES) 2-13 Drug form: l 21:57: SOLN, 00 ONCE, 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/14/18 15:57:00 [employer] fentaNYL 2017-03 No Route: IV, Mem oria (ANES) 2-13 Drug form: l 21:57: INJ, ONCE, [place] 00 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/14/18 15:57:00 [employer] lidocaine 2017-03 No Route: IV, Me moria (ANES) 2-13 Drug form: l 21:57: INJ, ONCE, [place] 00 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/14/18 15:57:00 [employer] propofol 2017-03 No Route: IV, Mem oria (ANES) 2-13 Drug form: l 21:57: INJ, ONCE, [place] 00 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/14/18 15:57:00 [employer] rocuronium 2017-03 No Route: IV, M emoria (ANES) 2-13 Drug form: l 21:57: INJ, ONCE, [place] 00 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/14/18 15:57:00 [employer] midazolam 2017-03 No Route: IV, Me moria (ANES) 2-13 Drug form: l 21:57: SOLN, [place] ONCE, Stop date: 02/14/18 15:57:00 [employer] fentaNYL 2017-03 No Route: IV, Mem oria (ANES) 2-13 Drug form: l 21:57: INJ, ONCE, [place] 00 Stop date: 02/14/18 15:57:00 [employer] lidocaine 2017-03 No Route: IV, Me moria (ANES) 2-13 Drug form: l 21:57: INJ, ONCE, [place] 00 Stop date: 02/14/18 15:57:00 [employer] propofol 2017-03 No Route: IV, Mem oria (ANES) 2-13 Drug form: l 21:57: INJ, ONCE, [place] 00 Stop date: 02/14/18 15:57:00 [employer] rocuronium 2017-03 No Route: IV, M emoria (ANES) 2-13 Drug form: l 21:57: INJ, ONCE, [place] 00 Stop date: 02/14/18 15:57:00 [employer] midazolam 2017-03 No Route: IV, Me moria (ANES) 2-13 Drug form: l 21:57: SOLN, [place] 00 ONCE, Stop date: 02/14/18 15:57:00 [employer] fentaNYL 2017-03 No Route: IV, Mem oria (ANES) 2-13 Drug form: l 21:57: INJ, ONCE, [place] 00 Stop date: 02/14/18 15:57:00 [employer] lidocaine 2017-03 No Route: IV, Me moria (ANES) 2-13 Drug form: l 21:57: INJ, ONCE, Stop date: 02/14/18 15:57:00 [employer] propofol 2017-03 No Route: IV, Mem oria (ANES) 2-13 Drug form: l 21:57: INJ, ONCE, Stop date: 02/14/18 15:57:00 [employer] rocuronium 2017-03 No Route: IV, M emoria (ANES) 2-13 Drug form: l 21:57: INJ, ONCE, Stop date: 02/14/18 15:57:00 [employer] midazolam 2017-03 No Route: IV, Me moria (ANES) 2-13 Drug form: l 21:57: SOLN, ONCE, Stop date: 02/14/18 15:57:00 [employer] fentaNYL 2017-03 No Route: IV, Mem oria (ANES) 2-13 Drug form: l 21:57: INJ, ONCE, Stop date: 02/14/18 15:57:00 [employer] lidocaine 2017-03 No Route: IV, Me moria (ANES) 2-13 Drug form: l 21:57: INJ, ONCE, Stop date: 02/14/18 15:57:00 [employer] propofol 2017-03 No Route: IV, Mem oria (ANES) 2-13 Drug form: l 21:57: INJ, ONCE, Stop date: 02/14/18 15:57:00 [employer] rocuronium 2017-03 No Route: IV, M emoria (ANES) 2-13 Drug form: l 21:57: INJ, ONCE, Stop date: 02/14/18 15:57:00 [employer] midazolam 2017-03 No Route: IV, Me moria (ANES) 2-13 Drug form: l 21:57: SOLN, [place] ONCE, Stop date: 02/14/18 15:57:00 [employer] Promethazin 2017-03 No Notes: Do M emoria e 2-13 not give l 21:47: IV push. [place] 00 (Same as: Phenergan) Ondansetron 2017-03 No Notes: Kuldeep teto 2-13 (Same as: l 21:47: Zofran) [place] 00 MEDICATION WASTE Product Size: 4 mg Product Wasted: ___ mg Metoprolol 2017-03 No Notes: Memor ia 2-13 (Same as: l 21:47: Lopressor) [place] 00 Push over 2 minutes Ketorolac 2017-03 No 4 days Memor ia 2-13 l 21:47: MEDICATION [place] 00 WASTE Product Size: 30 mg Product Wasted: ___ mg Labetalol 2017-03 No Notes: Memori a 2-13 (Same as: l 21:47: Normodyne, [place] 00 Trandate) Push over 2 minutes Give bolus over 2-3 minutes. Sodium 2017-03 No 500 mL, Memoria Chloride 2-13 1500 l 0.9% 21:47: ml/hr, [place] (Bolus) IV 00 Infuse Over: 20 minutes, Route: IV, 500, Drug form: INJ, ONCE, Dosing Weight 85 kg, Start date: 02/14/18 15:47:00 [employer], Stop date: 02/14/18 15:47:00 [employer] Naloxone 2017-03 No Notes: Memoria 2-13 Same as l 21:47: Narcan [place] Flumazenil 2017-03 No Notes: Memor ia 2-13 (Same as: l 21:47: Romazicon) [place] 00 Morphine 2017-03 No Notes: Memoria 2-13 (Same l 21:47: as:MORPhin [place] 00 e Sulfate) Hydromorpho 2017-03 No Notes: Kuldeep teto ne 2-13 Same as l 21:47: Dilaudid [place] Promethazin 2017-03 No Notes: Do M emoria e 2-13 not give l 21:47: IV push. [place] 00 (Same as: Phenergan) Ondansetron 2017-03 No Notes: Kuldeep teto 2-13 (Same as: l 21:47: Zofran) [place] 00 MEDICATION WASTE Product Size: 4 mg Product Wasted: ___ mg Metoprolol 2017-03 No Notes: Memor ia 2-13 (Same as: l 21:47: Lopressor) [place] Push over 2 minutes Ketorolac 2017-03 No 4 days Memor ia 2-13 l 21:47: MEDICATION [place] 00 WASTE Product Size: 30 mg Product [...] Weight 85 kg, Start date: 02/14/18 15:47:00 [employer], Stop date: 02/14/18 15:47:00 [employer] Naloxone 2017-03 No Notes: Memoria 2-13 Same as l 21:47: Narcan [place] 00 Flumazenil 2017-03 No Notes: Memor ia 2-13 (Same as: l 21:47: Romazicon) [place] 00 Morphine 2017-03 No Notes: Memoria 2-13 (Same l 21:47: as:MORPhin [place] e Sulfate) Hydromorpho 2017-03 No Notes: Kuldeep teto ne 2-13 Same as l 21:47: Dilaudid [place] 00 Promethazin 2017-03 No Notes: Do M emoria e 2-13 not give l 21:47: IV push. [place] 00 (Same as: Phenergan) Ondansetron 2017-03 No [...] Chloride 2-13 1500 l 0.9% 21:47: ml/hr, [place] (Bolus) IV 00 Infuse Over: 20 minutes, Route: IV, 500, Drug form: INJ, ONCE, Dosing Weight 85 kg, Start date: 02/14/18 15:47:00 [employer], Stop date: 02/14/18 15:47:00 [employer] Naloxone 2017-03 No Notes: Memoria 2-13 Same as l 21:47: Narcan [place] 00 Flumazenil 2017-03 No Notes: Memor ia 2-13 (Same as: l 21:47: Romazicon) [place] 00 Morphine 2017-03 No Notes: Memoria 2-13 (Same l 21:47: as:MORPhin [place] 00 e Sulfate) Hydromorpho 2017-03 No Notes: Kuldeep teto ne 2-13 Same as l 21:47: Dilaudid [place] 00 Promethazin 2017-03 No Notes: Do M emoria e 2-13 not give l 21:47: IV push. [place] 00 (Same as: Phenergan) Ondansetron 2017-03 No Notes: Kuldeep teto 2-13 (Same as: l 21:47: Zofran) [place] 00 MEDICATION WASTE Product Size: 4 mg Product Wasted: ___ mg Metoprolol 2017-03 No Notes: Memor ia 2-13 (Same as: l 21:47: Lopressor) [place] Push over 2 minutes Ketorolac 2017-03 No 4 days Memor ia 2-13 l 21:47: MEDICATION [place] WASTE Product Size: 30 mg Product Wasted: ___ mg Labetalol 2017-03 No Notes: Memori a 2-13 (Same as: l 21:47: Normodyne, [place] 00 Trandate) Push over 2 minutes Give bolus over 2-3 minutes. Sodium 2017-03 No 500 mL, Memoria Chloride 2-13 1500 l 0.9% 21:47: ml/hr, [place] (Bolus) IV 00 Infuse Over: 20 minutes, Route: IV, 500, Drug form: INJ, ONCE, Dosing Weight 85 kg, Start date: 02/14/18 15:47:00 [employer], Stop date: 02/14/18 15:47:00 [employer] Naloxone 2017-03 No Notes: Memoria 2-13 Same as l 21:47: Narcan [place] 00 Flumazenil 2017-03 No Notes: Memor ia 2-13 (Same as: l 21:47: Romazicon) [place] Morphine 2017-03 No Notes: Memoria 2-13 (Same l 21:47: as:MORPhin [place] 00 e Sulfate) Hydromorpho 2017-03 No Notes: Kuldeep teto ne 2-13 Same as l 21:47: Dilaudid [place] 00 Promethazin 2017-03 No Notes: Do M emoria e 2-13 not give l 21:47: IV push. [place] 00 (Same as: Phenergan) Ondansetron 2017-03 No Notes: Kuldeep teto 2-13 (Same as: l 21:47: Zofran) [place] 00 MEDICATION WASTE Product Size: 4 mg Product Wasted: ___ mg Metoprolol 2017-03 No Notes: Memor ia 2-13 (Same as: l 21:47: Lopressor) [place] 00 Push over 2 minutes Ketorolac 2017-03 [...] Weight 85 kg, Start date: 02/14/18 15:47:00 [employer], Stop date: 02/14/18 15:47:00 [employer] Naloxone 2017-03 No Notes: Memoria 2-13 Same as l 21:47: Narcan [place] Flumazenil 2017-03 No Notes: Memor ia 2-13 (Same as: l 21:47: Romazicon) Morphine 2017-03 No Notes: Memoria 2-13 (Same l 21:47: as:MORPhin e Sulfate) Hydromorpho 2017-03 No Notes: Kuldeep teto ne 2- Same as l 21:47: Dilaudid vancomycin 2017-03 No Route: IV, M emoria (ANES) 1000 2 Drug form: l mg 21:45: INJ, Start date: 02/14/18 15:45:00 [employer], Stop date: 02/14/18 16:45:00 [employer] vancomycin 2017-03 No Route: IV, M emoria (ANES) 1000 2 Drug form: l mg 21:45: INJ, Start date: 02/14/18 15:45:00 [employer], Stop date: 02/14/18 16:45:00 [employer] vancomycin 2017-03 No Route: IV, Bradley emoria (ANES) 1000 04-17 Drug form: l mg 21:45: INJ, Start date: 02/14/18 15:45:00 [employer], Stop date: 02/14/18 16:45:00 [employer] vancomycin 2017-03 No Route: IV, M emoria (ANES) 1000 04-17 Drug form: l mg 21:45: INJ, Start date: 02/14/18 15:45:00 [employer], Stop date: 02/14/18 16:45:00 [employer] vancomycin 2017-03 No Route: IV, M emoria (ANES) 1000 04-17 Drug form: l mg 21:45: INJ, Start date: 02/14/18 15:45:00 [employer], Stop date: 02/14/18 16:45:00 [employer] Sodium 2017-03 No Route: IV, Memor ia Chloride 2-13 Total l 0.9% IV 21:08: Volume: [place] (ANES) 1000 00 1,000, mL Start date: 02/14/18 15:08:00 [employer], Stop date: 02/14/18 16:08:00 [employer] Sodium 2017-03 No Route: IV, Memor ia Chloride 2-13 Total l 0.9% IV 21:08: Volume: [place] (ANES) 1000 00 1,000, mL Start date: 02/14/18 15:08:00 [employer], Stop date: 02/14/18 16:08:00 [employer] Sodium 2017-03 No Route: IV, Memor ia Chloride 2-13 Total l 0.9% IV 21:08: Volume: [place] (ANES) 1000 00 1,000, mL Start date: 02/14/18 15:08:00 [employer], Stop date: 02/14/18 16:08:00 [employer] Sodium 2017-03 No Route: IV, Memor ia Chloride 2-13 Total l 0.9% IV 21:08: Volume: [place] (ANES) 1000 00 1,000, mL Start date: 02/14/18 15:08:00 [employer], Stop date: 02/14/18 16:08:00 [employer] Sodium 2017-03 No Route: IV, Memor ia Chloride 2-13 Total l 0.9% IV 21:08: Volume: [place] (ANES) 1000 00 1,000, mL Start date: 02/14/18 15:08:00 [employer], Stop date: 02/14/18 16:08:00 [employer] Ativan 2017-03 No Notes: Memoria 2-13 (Same as: l 18:24: Ativan) [place] 00 Ativan 2017-03 No Notes: Memoria 2-13 (Same as: l 18:24: Ativan) [place] Ativan 2017-03 No Notes: Memoria 2-13 (Same as: l 18:24: Ativan) [place] Ativan 2017-03 No Notes: Memoria 2-13 (Same as: l 18:24: Ativan) [place] Ativan 2017-03 No Notes: Memoria 2-13 (Same as: l 18:24: Ativan) [place] Thiamine 2017-03 No Notes: Memoria 2-13 (Same As: l 16:00: Vitamin [place] B1) multivitami 2017-03 No Notes: Kuldeep teto [...] Memoria 2-13 (Same As: l 16:00: Vitamin [place] 00 B1) multivitami 2017-03 No Notes: Kuldeep teto n with 2-13 (Same l minerals 16:00: as:Thera-Bradley Dale fernandes 00 , Theragran- M) WASTE: F/P - Black; E - Municipal Trash Bin Give with food. Thiamine 2017-03 No Notes: Memoria 2-13 (Same As: l 16:00: Vitamin [place] 00 B1) multivitami 2017-03 No Notes: Kuldeep teto n with 2-13 (Same l minerals 16:00: as:Thera-Bradley [place] fernandes 00 , Theragran- M) WASTE: F/P - Black; E - Municipal Trash Bin Give with food. 24 HR 2017-03 No Notes: Memoria Metoprolol 2-13 (Same as: l Tartrate 25 15:00: Toprol XL) [place] MG Extended 00 Do Not Release Crush Tablet [Toprol] duloxetine 2017-03 No Notes: Memor ia 2-13 (Same as: l 15:00: Cymbalta) [place] 00 (Do Not Crush) Plavix 2017-03 No Notes: Memoria 2-13 (Same As: l 15:00: Plavix) [place] 00 24 HR 2017-03 No Notes: Memoria Metoprolol 2-13 (Same as: l Tartrate 25 15:00: Toprol XL) [place] MG Extended 00 Do Not Release Crush Tablet [Toprol] duloxetine 2017-03 No Notes: Memor ia 2-13 (Same as: l 15:00: Cymbalta) [place] 00 (Do Not Crush) Plavix 2017-03 No Notes: Memoria 2-13 (Same As: l 15:00: Plavix) [place] 00 24 HR 2017-03 No Notes: Memoria [...] as: l Tartrate 25 15:00: Toprol XL) [place] MG Extended 00 Do Not Release Crush Tablet [Toprol] duloxetine 2017-03 No Notes: Memor ia 2-13 (Same as: l 15:00: Cymbalta) [place] 00 (Do Not Crush) Plavix 2017-03 No Notes: Memoria 2-13 (Same As: l 15:00: Plavix) [place] 00 24 HR 2017-03 No Notes: Memoria Metoprolol 2-13 (Same as: l Tartrate 25 15:00: Toprol XL) [place] MG Extended 00 Do Not Release Crush Tablet [Toprol] duloxetine 2017-03 No Notes: Memor ia 2-13 (Same as: l 15:00: Cymbalta) [place] 00 (Do Not Crush) Plavix 2017-03 No Notes: Memoria 2-13 (Same As: l 15:00: Plavix) [place] 00 atorvastati 2017-03 No Notes: Kuldeep teto n 2-13 (Same as: l 03:00: Lipitor) [place] 00 Trazodone 2017-03 No Notes: Memori a Hydrochlori 2-13 (Same As: l de 50 MG 03:00: Desyrel) [place] nn Oral Tablet 00 atorvastati 2017-03 No Notes: Kuldeep teto n 2-13 (Same as: l 03:00: Lipitor) [place] 00 Trazodone 2017-03 No Notes: Memori a Hydrochlori 2-13 (Same As: l de 50 MG 03:00: Desyrel) [place] nn Oral Tablet 00 atorvastati 2017-03 No Notes: Kuldeep teto n 2-13 (Same as: l 03:00: Lipitor) [place] Trazodone 2017-03 No Notes: Memori a Hydrochlori 2-13 (Same As: l de 50 MG 03:00: Desyrel) [place] nn Oral Tablet 00 atorvastati 2017-03 No Notes: Kuldeep teto n 2-13 (Same as: l 03:00: Lipitor) [place] Trazodone 2017-03 No Notes: Memori a Hydrochlori [...] Rate: To l 0.9% 01:24: prime line [place] (titrate) 00 and flush 250 mL remaining blood products., Dosing Weight 85, kg, Route: IV, Total Volume: 250, Priority: Routine, Start Date: 02/13/18 19:24:00 [employer], Duration: 30 day, Stop date: 03/15/18 19:23:00 [employer], Replace Every: 24 hr Sodium 2017-03 No 250 mL, Memoria Chloride 2-13 Rate: To l 0.9% 01:24: prime line [place] (titrate) 00 and flush 250 mL remaining blood products., Dosing Weight 85, kg, Route: IV, Total Volume: 250, Priority: Routine, Start Date: 02/13/18 19:24:00 [employer], Duration: 30 day, Stop date: 03/15/18 19:23:00 [employer], Replace Every: 24 hr Sodium 2017-03 No 250 mL, Memoria Chloride 2-13 Rate: To l 0.9% 01:24: prime line [place] (titrate) 00 and flush 250 mL remaining blood products., Dosing Weight 85, kg, Route: IV, Total Volume: 250, Priority: Routine, Start Date: 02/13/18 19:24:00 [employer], Duration: 30 day, Stop date: 03/15/18 19:23:00 [employer], Replace Every: 24 hr Sodium 2018-1 No 250 mL, Memoria Chloride 2-13 Rate: To l 0.9% 01:24: prime line [place] (titrate) 00 and flush 250 mL remaining blood products., Dosing Weight 85, kg, Route: IV, Total Volume: 250, Priority: Routine, Start Date: 02/13/18 19:24:00 [employer], Duration: 30 day, Stop date: 03/15/18 19:23:00 [employer], Replace Every: 24 hr Sodium 2017- No 250 mL, Memoria Chloride 2-13 Rate: To l 0.9% 01:24: prime line [place] (titrate) 00 and flush 250 mL remaining blood products., Dosing Weight 85, kg, Route: IV, Total Volume: 250, Priority: Routine, Start Date: 02/13/18 19:24:00 [employer], Duration: 30 day, Stop date: 03/15/18 19:23:00 [employer], Replace Every: 24 hr Vancomycin 2017- No 2000 mg: Me moria 2-13 infuse l 00:00: over 2.5 [place] 00 hours For adult patients only: Round [...] Vancomycin 2018- No 2000 mg: Me moria 2-13 infuse l 00:00: over 2.5 [place] 00 hours For adult patients only: Round to nearest 250 mg per Medical Staff approval MEDICATION WASTE Product Size: 1000 mg Product Wasted: ___ mg Vancomycin 2018- No 2000 mg: Me moria 2-13 infuse [...] s with feeding tube less than 14 [place] (Dobhoff, J-tube etc) and pediatric and patients. [...] s with feeding tube less than 14 [place] (Dobhoff, J-tube etc) and pediatric and patients. [...] s with feeding tube less than 14 [place] (Dobhoff, J-tube etc) and pediatric and patients. [...] s with feeding tube less than 14 [place] (Dobhoff, J-tube etc) and pediatric and patients. [...] s with feeding tube less than 14 [place] (Dobhoff, J-tube etc) and pediatric and patients. Buspirone 2017-03 No Notes: Memori a 2-12 (Same As: l 23:00: BuSpar) [place] Buspirone 2017-03 No Notes: Memori a 2-12 (Same As: l 23:00: BuSpar) [place] Buspirone 2017-03 No Notes: Memori a 2-12 (Same As: l 23:00: BuSpar) [place] Buspirone 2017-03 No Notes: Memori a 2-12 (Same As: l 23:00: BuSpar) [place] Buspirone 2017-03 No Notes: Memori a 2-12 (Same As: l 23:00: BuSpar) [place] 00 NS 1,000 mL 2017-03 No 1,000 mL, M emoria 04-16 Rate: 75 l 22:01: ml/hr, [place] 00 Infuse over: 13.3 hr, Route: IV, Dosing Weight 85 kg, Total Volume: 1,000, Start date: 02/13/18 16:01:00 [employer], Duration: 30 day, Stop date: 03/15/18 16:00:00 [employer], 2.1, m2 NS 1,000 mL 2017-03 No 1,000 mL, M emoria 12 Rate: 75 l 22:01: ml/hr, [place] 00 Infuse over: 13.3 hr, Route: IV, Dosing Weight 85 kg, Total Volume: 1,000, Start date: 02/13/18 16:01:00 [employer], Duration: 30 day, Stop date: 03/15/18 16:00:00 [employer], 2.1, m2 NS 1,000 mL 2017-03 No 1,000 mL, M emoria 2-12 Rate: 75 l 22:01: ml/hr, [place] 00 Infuse over: 13.3 hr, Route: IV, Dosing Weight 85 kg, Total Volume: 1,000, Start date: 02/13/18 16:01:00 [employer], Duration: 30 day, Stop date: 03/15/18 16:00:00 [employer], 2.1, m2 NS 1,000 mL 2017-03 No 1,000 mL, M emoria 2-12 Rate: 75 l 22:01: ml/hr, [place] 00 Infuse over: 13.3 hr, Route: IV, Dosing Weight 85 kg, Total Volume: 1,000, Start date: 02/13/18 16:01:00 [employer], Duration: 30 day, Stop date: 03/15/18 16:00:00 [employer], 2.1, m2 NS 1,000 mL 2017-03 No 1,000 mL, M emoria 2-12 Rate: 75 l 22:01: ml/hr, [place] 00 Infuse over: 13.3 hr, Route: IV, Dosing Weight 85 kg, Total Volume: 1,000, Start date: 02/13/18 16:01:00 [employer], Duration: 30 day, Stop date: 03/15/18 16:00:00 [employer], 2.1, m2 Rocephin + 2017-03 No Notes: [...] tab, PO, l tablet 21:11: BID, 0 [place] 00 Refill(s) clopidogrel 2017-03 No 75 mg = 1 M emoria 75 MG Oral 2-12 tab, PO, l Tablet 21:11: Daily, # [place] [Plavix] 00 90 tab, 1 Refill(s) duloxetine [...] tab, PO, l tablet 21:11: BID, 0 [place] 00 Refill(s) Sulfamethox 2017-03 No 1 tab, [...] tab, PO, l tablet 21:11: BID, 0 [place] 00 Refill(s) clopidogrel 2017-03 No 75 mg = 1 M emoria 75 MG Oral 2-12 tab, PO, l Tablet 21:11: Daily, # [place] [Plavix] 00 90 tab, 1 Refill(s) duloxetine 2017-03 No 30 mg, PO, M emoria 2-12 Daily, 0 l 21:11: Refill(s) [place] 00 metoprolol 2017-03 No 25 mg = 1 Me moria succinate 2-12 cap, PO, l 25 mg oral 21:11: Daily, 0 Her fernandes capsule, 00 Refill(s) extended release clopidogrel 2017-03 No 75 mg = 1 [...] tab, PO, l tablet 21:11: BID, 0 [place] 00 Refill(s) Sulfamethox 2017-03 No 1 tab, PO, Memoria azole 800 2-12 BID, # 14 l MG / 21:11: tab, 0 [place] Trimethopri 00 Refill(s) m 160 MG Oral Tablet Tramadol 2017-03 No 50 mg, PO, Mem oria 2-12 Q4-6H, PRN l 21:11: Pain, # 20 [place] 00 tab, 0 Refill(s) Trazodone 2017-03 No 100 mg = 2 Me moria Hydrochlori 2-12 tab, PO, l de 50 MG 21:11: Bedtime, 0 Her fernandes Oral Tablet 00 Refill(s) midodrine 2017-03 No 2.5 mg = 1 Me moria 2.5 mg oral 2-12 tab, PO, l tablet 21:11: BID, 0 [place] 00 Refill(s) atorvastati 2017-03 No 80 mg = 1 M emoria n 80 mg 2-12 tab, PO, l oral tablet 21:11: Bedtime, # [place] 00 30 tab, 0 Refill(s) busPIRone 2017-03 No 10 mg = 1 Mem oria 10 mg oral 2-12 tab, PO, l tablet 21:11: BID, 0 [place] 00 Refill(s) Sulfamethox 2017-03 No 1 tab, PO, Memoria azole 800 2-12 BID, # 14 l MG / 21:11: tab, 0 [place] Trimethopri 00 Refill(s) m 160 MG Oral Tablet Tramadol 2017-03 No 50 mg, PO, Mem oria 2-12 Q4-6H, PRN l 21:11: Pain, # 20 [place] 00 tab, 0 Refill(s) midodrine 2017-03 No 2.5 mg = 1 Me moria 2.5 mg oral 2-12 tab, PO, l tablet 21:11: BID, 0 [place] 00 Refill(s) clopidogrel 2017-03 No 75 mg = 1 M emoria 75 MG Oral 2-12 tab, PO, l Tablet 21:11: Daily, # [place] [Plavix] 00 90 tab, 1 Refill(s) duloxetine [...] PO, l oral tablet 21:11: Bedtime, # [place] 00 30 tab, 0 Refill(s) busPIRone 2017-03 No 10 mg = 1 Mem oria 10 mg oral 2-12 tab, PO, l tablet 21:11: BID, 0 [place] 00 Refill(s) Sulfamethox 2017-03 No 1 tab, PO, Memoria azole 800 2-12 BID, # 14 l MG / 21:11: tab, 0 [place] Trimethopri 00 Refill(s) m 160 MG Oral [...] 2-12 Route: IM, l 20:53: Drug form: PDR/INJ, PRN, kg, PRN Blood Glucose Results, Start date: 02/13/18 14:53:00 [employer], Duration: 30 day, Stop date: 03/15/18 14:52:00 [employer] Dextrose 2017-03 No 25 gm, 50 Kuldeep teto 50% Syringe 2-12 mL, Route: l 20:53: IVP, Drug Form: INJ, kg, PRN, PRN Blood Glucose Results, Start date: 02/13/18 14:53:00 [employer], Duration: 30 day, Stop date: 03/15/18 14:52:00 [employer] Acetaminoph 2017-03 No Notes: Do M emoria [...] Blood Glucose Results, Start date: 02/13/18 14:53:00 [employer], Duration: 30 day, Stop date: 03/15/18 14:52:00 [employer] Dextrose 2017-03 No 25 gm, 50 Kuldeep teto 50% Syringe 2-12 mL, Route: l 20:53: IVP, Drug Form: INJ, kg, PRN, PRN Blood Glucose Results, Start date: 02/13/18 14:53:00 [employer], Duration: 30 day, Stop date: 03/15/18 14:52:00 [employer] Acetaminoph 2017-03 No Notes: Do M emoria en 04-16 not exceed l 20:53: 4 gm/day. [place] 00 (Same as: Tylenol) Ondansetron 2017-03 No Notes: Kuldeep teto -12 (Same as: l 20:53: Zofran) MEDICATION WASTE Product Size: 4 mg Product Wasted: ___ mg Glucagon 2017-03 No 1 mg, Memoria 12 Route: IM, l 20:53: Drug form: [place] 00 PDR/INJ, PRN, kg, PRN Blood Glucose Results, Start date: 02/13/18 14:53:00 [employer], Duration: 30 day, Stop date: 03/15/18 14:52:00 [employer] Dextrose 2017-03 No 25 gm, 50 Kuldeep teto 50% Syringe 2-12 mL, Route: l 20:53: IVP, Drug Form: INJ, kg, PRN, PRN Blood Glucose Results, Start date: 02/13/18 14:53:00 [employer], Duration: 30 day, Stop date: 03/15/18 14:52:00 [employer] Acetaminoph 2017-03 No Notes: Do M emoria en 2-12 not exceed l 20:53: 4 gm/day. (Same as: Tylenol) Ondansetron 2017-03 No Notes: Kuldeep teto 2-12 (Same as: l 20:53: Zofran) MEDICATION WASTE Product Size: 4 mg Product Wasted: ___ mg Glucagon 2017-03 No 1 mg, Memoria 2-12 Route: IM, l 20:53: Drug form: [place] PDR/INJ, PRN, kg, PRN Blood Glucose Results, Start date: 02/13/18 14:53:00 [employer]NA [employer], Duration: 30 day, Stop date: 03/15/18 14:52:00 [employer] Dextrose 2017-03 No 25 gm, 50 Kuldeep teto 50% Syringe 2-12 mL, Route: l 20:53: IVP, Drug Form: INJ, kg, PRN, PRN Blood Glucose Results, Start date: 02/13/18 14:53:00 [employer]NA RO[employer] C[employer]TER, Duration: 30 day, Stop date: 03/15/18 14:52:00 [employer] Acetaminoph 2017-03 No Notes: Do M emoria en 12 not exceed l 20:53: 4 gm/day. (Same as: Tylenol) Ondansetron 2017-03 No Notes: Kuldeep teto 2-12 (Same as: l 20:53: Zofran) MEDICATION WASTE Product Size: 4 mg Product Wasted: ___ mg Glucagon 2017-03 No 1 mg, Memoria 12 Route: IM, l 20:53: Drug form: [place] PDR/INJ, PRN, kg, PRN Blood Glucose Results, Start date: 02/13/18 14:53:00 [employer]NA RO[employer] C[employer]TER, Duration: 30 day, Stop date: 03/15/18 14:52:00 [employer] Dextrose 2017-03 No 25 gm, 50 Kuldeep teto 50% Syringe 2-12 mL, Route: l 20:53: IVP, Drug Form: INJ, kg, PRN, PRN Blood Glucose Results, Start date: 02/13/18 14:53:00 [employer]NA RO[employer] C[employer]TER, Duration: 30 day, Stop date: 03/15/18 14:52:00 [employer]NA RO[employer] DULoxetine 2018-1 No 30 mg = 1 Me moria [...] tab, PO, l oral 18:48: Daily, # [place] enteric 00 30 tab, 0 coated Refill(s) [...] , 8.6 mg l 18:48: =, PO, [place] 00 Daily, Refill(s) 0 atorvastati 2017-03 Yes 80 mg = 1 M emoria n 80 mg 2-12 tab, PO, l oral tablet 18:48: Bedtime, 0 [place] 00 Refill(s) midodrine 2017-03 No 5 mg = 2 Kuldeep teto 2.5 mg oral 2-12 tab, PO, l tablet 18:48: Daily, # [place] 00 180 tab, 0 Refill(s) busPIRone 2017-03 Yes 10 mg = 1 Mem oria 10 mg oral 2-12 tab, PO, l tablet 18:48: BID, 0 [place] 00 Refill(s) Trazodone 2017-03 No 50 mg [...] tab, PO, l tablet 18:48: Daily, 0 [place] 00 Refill(s) Aspirin 81 2017-03 No 162 mg = 2 M emoria MG Enteric 2-12 tab, PO, l Coated 18:48: Daily, # [place] Tablet 00 90 tab, 3 Refill(s) metoprolol 2017-03 No 25 mg = 1 Me moria succinate 2-12 cap, PO, l 25 mg oral 18:48: Daily, 0 Her fernandes capsule, 00 Refill(s) extended release Sennosides 2017-03 No Sennosides M emoria 2-12 , 8.6 mg l 18:48: =, PO, [place] 00 Daily, Refill(s) 0 atorvastati 2017-03 Yes 80 mg = 1 M emoria n 80 mg 2-12 tab, PO, l oral tablet 18:48: Bedtime, 0 [place] 00 Refill(s) midodrine 2017-03 No 5 mg = 2 Kuldeep teto 2.5 mg oral 2-12 tab, PO, l tablet 18:48: Daily, # [place] 00 180 tab, 0 Refill(s) busPIRone 2017-03 Yes 10 mg = 1 Mem oria 10 mg oral 2-12 tab, PO, l tablet 18:48: BID, 0 [place] 00 Refill(s) Trazodone 2017-03 No 50 mg [...] PO, l oral tablet 18:48: Bedtime, 0 [place] 00 Refill(s) midodrine 2017-03 No 5 mg = 2 Kuldeep teto 2.5 mg oral 2-12 tab, PO, l tablet 18:48: Daily, # [place] 00 180 tab, 0 Refill(s) busPIRone 2017-03 Yes 10 mg = 1 Mem oria 10 mg oral 2-12 tab, PO, l tablet 18:48: BID, 0 [place] 00 Refill(s) Trazodone 2017-03 No 50 mg [...] tab, PO, l oral 18:48: Daily, # [place] enteric 00 30 tab, 0 coated Refill(s) tablet clopidogrel 2017-03 Yes 75 mg = 1 M emoria 75 mg oral 2-12 tab, PO, l tablet 18:48: Daily, 0 [place] 00 Refill(s) Aspirin 81 2017-03 No 162 mg = 2 M emoria MG Enteric 2-12 tab, PO, l Coated 18:48: Daily, # [place] Tablet 00 90 tab, 3 Refill(s) metoprolol 2017-03 No 25 mg = 1 Me moria succinate 2-12 cap, PO, l 25 mg oral 18:48: Daily, 0 Her fernandes capsule, 00 Refill(s) extended release Sennosides 2017-03 No Sennosides M emoria 2-12 , 8.6 mg l 18:48: =, PO, [place] 00 Daily, Refill(s) 0 atorvastati 2017-03 Yes 80 mg = 1 M emoria n 80 mg 2-12 tab, PO, l oral tablet 18:48: Bedtime, 0 [place] 00 Refill(s) midodrine 2017-03 No 5 mg = 2 Kuldeep teto 2.5 mg oral 2-12 tab, PO, l tablet 18:48: Daily, # [place] 00 180 tab, 0 Refill(s) busPIRone 2017-03 Yes 10 mg = 1 Mem oria 10 mg oral 2-12 tab, PO, l tablet 18:48: BID, 0 [place] 00 Refill(s) Trazodone 2017-03 No 50 mg = 1 Mem oria Hydrochlori 2-12 tab, PO, l de 50 MG 18:48: TID, # 90 Herm ladi Oral Tablet 00 tab, 0 Refill(s) clopidogrel 2017-03 Yes [id number] 75mg Take 1 Univers 75 mg 1-14 07 tablet by ity of tablet 00:00: mouth [place] 00 daily. [facility] clopidogrel 2017-03 Yes [id number] 75mg Take 1 Univers 75 mg 1-14 07 tablet by ity of tablet 00:00: mouth [place] 00 daily. [facility] clopidogrel 2017-03 2020- No [id number] 75mg Take 1 Univers 75 mg 1-14 09-10 tablet by ity of tablet 00:00: 00:00 mouth [place] 00 :00 daily. [facility] clopidogrel 2017-03- No [id number] 75mg Take 1 Univers 75 mg 1-14 09-10 tablet by ity of tablet 00:00: 00:00 mouth [place] 00 :00 daily. [facility] DULoxetine 2017-03 Yes [id number] 30mg Take 1 Univers 30 mg 0-22 capsule by ity of capsule 00:00: mouth [place] 00 daily. [facility] busPIRone 2017-03 Yes [id number] 10mg Take 1 Un jody 10 mg 0-22 tablet by ity of tablet 00:00: mouth 2 [place] 00 (two) Medical times Branch daily. DULoxetine 2017-03 Yes [id number] 30mg Take 1 Univers 30 mg 0-22 capsule by ity of capsule 00:00: mouth [place] 00 daily. [facility] busPIRone 2017-03 Yes [id number] 10mg Take 1 Un jody 10 mg 0-22 tablet by ity of tablet 00:00: mouth 2 [place] 00 (two) Medical times Branch daily. DULoxetine 2017-03 2020- No [id number] 30mg Take 1 Univers 30 mg 0-22 09-10 capsule by ity of capsule 00:00: 00:00 mouth [place] 00 :00 daily. [facility] busPIRone 2017-03 2020- No [id number] 10mg Take 1 U nivers 10 mg 0-22 09-10 tablet by ity of tablet 00:00: 00:00 mouth 2 [place] 00 :00 (two) Medical times Branch daily. DULoxetine 2017-03 2020- No [id number] 30mg Take 1 Univers 30 mg 0-22 09-10 capsule by ity of capsule 00:00: 00:00 mouth [place] 00 :00 daily. [facility] busPIRone 2017- 2020- No [id number] 10mg Take 1 U nivers 10 mg 0-22 09-10 tablet by ity of tablet 00:00: 00:00 mouth 2 [place] 00 :00 (two) Medical times Branch daily. pantoprazol 2018-0 Yes 40mg Take 1 Univ ers e 40 mg EC 9-08 tablet by ity of tablet 00:00: mouth [place] 00 daily. [facility] pantoprazol 2017-0 Yes 40mg Take 1 Univ ers e 40 mg EC 9-08 tablet by ity of tablet 00:00: mouth [place] 00 daily. [facility] pantoprazol 2017-0 Yes 40mg Take 1 Univ ers e 40 mg EC 9-08 tablet by ity of tablet 00:00: mouth [place] 00 daily. Medical Branch sennosides 2018-0 Yes 8.6mg Take 1 Univ ers 8.6 mg 9-08 tablet by ity of tablet 00:00: mouth [place] 00 daily. [facility] pantoprazol 2017-0 Yes 40mg Take 1 Univ ers e 40 mg EC 9-08 tablet by ity of tablet 00:00: mouth [place] 00 daily. Medical Branch sennosides 2018-0 Yes 8.6mg Take 1 Univ ers 8.6 mg 9-08 tablet by ity of tablet 00:00: mouth [place] 00 daily. [facility] Branch pantoprazol 2017-0 Yes 40mg Take 1 Univ ers e [...] mouth [place] 00 daily. [facility] pantoprazol 2017- 2020- No 40mg Take 1 Uni vers e 40 mg EC 9-08 11-09 tablet by ity of tablet 00:00: 00:00 mouth [place] 00 :00 daily. Medical Branch pantoprazol 2017- 2020- No 40mg Take [...] 8.6mg Take 1 Uni vers 8.6 mg 11-10 tablet by ity of tablet 00:00: 00:00 mouth [place] 00 :00 daily. Medical Branch sennosides 2019- No 8.6mg Take 1 Uni vers 8.6 mg 11-10 tablet by ity of tablet 00:00: 00:00 mouth [place] 00 :00 daily. [facility] Vital Signs Vital Name Observation Time Observation Value Comments Source BMI 2021-06-01 15:26:00 32.00 kg/m2 Kaela S eybold Systolic blood 2021-06-01 15:26:00 136 mm[Hg] Kaela Seybold pressure Diastolic blood 2021-06-01 15:26:00 90 mm[Hg] Kelse y Seybold pressure Heart rate 2021-06-01 15:26:00 82 /min Kaela S eybold Body temperature 2021-06-01 15:26:00 36 Aretha Kaycee ey Seybold Respiratory rate 2021-06-01 15:26:00 16 /min Kaycee ey Seybold Body height 2021-06-01 15:26:00 177.8 cm Kaela S eybold Body weight 2021-06-01 15:26:00 101.152 kg Kaela S eybold Systolic blood 2021-05-03 19:49:00 130 mm[Hg] Kaela Seybold pressure Diastolic blood 2021-05-03 19:49:00 78 mm[Hg] Kelse y Seybold pressure Heart rate 2021-05-03 19:49:00 109 /min Kaela S eybold Body temperature 2021-05-03 19:49:00 36.67 Aretha Kaycee ey Seybold Respiratory rate 2021-05-03 19:49:00 21 /min Kaycee ey Seybold Body height 2021-05-03 19:49:00 177.8 cm Kaela S eybold Body weight 2021-05-03 19:49:00 102.059 kg Kaela echols BMI 2021-05-03 19:49:00 32.28 kg/m2 Kaela echols Systolic blood 2020-01-12 19:23:00 145 mm[Hg] Univer sity of pressure [place] [facility] Diastolic blood 2020-01-12 19:23:00 93 mm[Hg] Unive rsity of pressure [place] [facility] Heart rate 2020-01-12 19:12:00 91 /min [facility] [place] [facility] Respiratory rate 2020-01-12 19:12:00 17 /min Univ ersity of [place] [facility] Body height 2020-01-12 19:12:00 180.3 cm [facility] [place] [facility] Body weight 2020-01-12 19:12:00 108.5 kg [facility] [place] [facility] BMI 2020-01-12 19:12:00 33.36 kg/m2 [facility] [place] [facility] Oxygen saturation in 2020-01-12 19:12:00 92 /min University of Arterial blood by [facility] Pulse oximetry Branch Systolic blood 2020-01-12 19:23:00 145 mm[Hg] Univer sity of pressure [place] [facility] Diastolic blood 2020-01-12 19:23:00 93 mm[Hg] Unive rsity of pressure [place] [facility] Heart rate 2020-01-12 19:12:00 91 /min [facility] [place] [facility] Respiratory rate 2020-01-12 19:12:00 17 /min Univ ersity of [place] [facility] Body height 2020-01-12 19:12:00 180.3 cm [facility] [place] [facility] Body weight 2020-01-12 19:12:00 108.5 kg [facility] [place] [facility] BMI 2020-01-12 19:12:00 33.36 kg/m2 [facility] [place] [facility] Oxygen saturation in 2020-01-12 19:12:00 92 /min University of Arterial blood by [facility] Pulse oximetry Branch Oxygen saturation in 2019-11-13 19:01:00 96 /min University of Arterial blood by [facility] tenzin Pulse oximetry Branch Systolic blood 2019-11-13 19:01:00 131 mm[Hg] Univer sity of pressure [place] [facility] Diastolic blood 2019-11-13 19:01:00 73 mm[Hg] Unive rsity of pressure [place] [facility] Heart rate 2019-11-13 19:01:00 79 /min [facility] Body temperature 2019-11-13 19:01:00 36.17 Aretha [facility] Respiratory rate 2019-11-13 19:01:00 24 /min [facility] Body height 2019-11-13 19:01:00 180.3 cm [facility] Body weight 2019-11-13 19:01:00 109.317 kg [facility] BMI 2019-11-13 19:01:00 33.61 kg/m2 [facility] Respitory Rate 2018-08-16 16:55:00 Memori al [place] Systolic (mm Hg) 2018-08-16 16:55:00 Kuldeep rial [place] Diastolic (mm Hg) 2018-08-16 16:55:00 Mem orial [place] Heart Rate 2018-08-16 16:55:00 [facility] [place] Temperature Oral (F) 2018-08-16 13:25:00 96.9 F [facility] [place] Respitory Rate 2018-08-16 13:25:00 Memori al [place] Systolic (mm Hg) 2018-08-16 13:25:00 Kuldeep rial [place] Diastolic (mm Hg) 2018-08-16 13:25:00 Mem orial [place] Heart Rate 2018-08-16 13:25:00 [facility] [place] BMI Calculated 2018-08-16 07:46:00 Memori al [place] Height 2018-08-16 07:46:00 185.42 cm [facility] [place] Weight 2018-08-16 07:46:00 [facility] [place] Systolic (mm Hg) 2018-08-16 07:44:00 Kuldeep rial [place] Diastolic (mm Hg) 2018-08-16 07:44:00 Mem orial [place] Heart Rate 2018-08-16 07:44:00 [facility] [place] Respitory Rate 2018-08-16 07:44:00 Memori al [place] Temperature Oral (F) 2018-08-16 07:44:00 98.2 F [facility] [place] Temperature Oral (F) 2018-08-16 06:58:00 98.3 F [facility] [place] Weight 2018-08-16 01:17:00 [facility] [place] Height 2018-08-16 01:17:00 185.42 cm [facility] [place] BMI Calculated 2018-08-16 01:17:00 Memori al [place] Height 2018-06-19 10:53:00 185.42 cm [facility] [place] BMI Calculated 2018-06-19 10:53:00 Memori al [place] Weight 2018-06-19 10:53:00 [facility] [place] Temperature Oral (F) 2018-06-03 20:45:00 98.2 F [facility] [place] Systolic (mm Hg) 2018-06-03 20:45:00 Kuldeep rial [place] Diastolic (mm Hg) 2018-06-03 20:45:00 Mem orial [place] Respitory Rate 2018-06-03 20:45:00 Memori al [place] Heart Rate 2018-06-03 20:45:00 [facility] [place] Systolic (mm Hg) 2018-06-03 19:45:00 Kuldeep rial [place] Diastolic (mm Hg) 2018-06-03 19:45:00 Mem orial [place] Respitory Rate 2018-06-03 19:45:00 Memori al [place] Heart Rate 2018-06-03 19:45:00 [facility] [place] Systolic (mm Hg) 2018-06-03 19:15:00 Kuldeep rial [place] Diastolic (mm Hg) 2018-06-03 19:15:00 Mem orial [place] Respitory Rate 2018-06-03 19:15:00 Memori al [place] Heart Rate 2018-06-03 19:15:00 [facility] [place] Temperature Oral (F) 2018-06-03 18:45:00 97.8 F [facility] [place] BMI Calculated 2018-06-03 14:00:00 Memori al [place] Weight 2018-06-03 14:00:00 [facility] [place] Height 2018-06-03 14:00:00 185.4 cm [facility] [place] Temperature Oral (F) 2018-06-03 12:15:00 98.1 F [facility] [place] BMI Calculated 2018-06-02 23:24:00 Memori al [place] Weight 2018-06-02 23:24:00 [facility] [place] Height 2018-06-02 23:24:00 185.42 cm [facility] [place] Weight 2018-06-02 20:36:00 [facility] [place] Respitory Rate 2018-05-21 12:44:00 Memori al [place] Systolic (mm Hg) 2018-05-21 12:44:00 Kuldeep rial [place] Diastolic (mm Hg) 2018-05-21 12:44:00 Mem orial [place] Temperature Oral (F) 2018-05-21 12:44:00 98.3 F [facility] [place] Heart Rate 2018-05-21 12:44:00 [facility] [place] Systolic (mm Hg) 2018-05-21 09:00:00 Kuldeep rial [place] Diastolic (mm Hg) 2018-05-21 09:00:00 Mem orial [place] Heart Rate 2018-05-21 09:00:00 [facility] [place] Respitory Rate 2018-05-21 09:00:00 Memori al [place] Temperature Oral (F) 2018-05-21 09:00:00 97.8 F [facility] [place] Systolic (mm Hg) 2018-05-21 05:00:00 Kuldeep rial [place] Diastolic (mm Hg) 2018-05-21 05:00:00 Mem orial [place] Temperature Oral (F) 2018-05-21 05:00:00 98.0 F [facility] [place] Respitory Rate 2018-05-21 05:00:00 Memori al [place] Heart Rate 2018-05-21 05:00:00 [facility] [place] Weight 2018-05-09 18:49:00 [facility] [place] BMI Calculated 2018-05-09 18:49:00 Memori al [place] Height 2018-05-09 18:49:00 185.42 cm [facility] [place] Systolic (mm Hg) 2018-03-01 19:00:00 Kuldeep rial [place] Diastolic (mm Hg) 2018-03-01 19:00:00 Mem orial [place] Systolic (mm Hg) 2018-03-01 18:00:00 Kuldeep rial [place] Diastolic (mm Hg) 2018-03-01 18:00:00 Mem orial [place] Temperature Oral (F) 2018-03-01 18:00:00 98.0 F [facility] [place] Systolic (mm Hg) 2018-03-01 17:00:00 Kuldeep rial [place] Diastolic (mm Hg) 2018-03-01 17:00:00 Mem orial [place] Temperature Oral (F) 2018-03-01 14:00:00 98.1 F [facility] [place] Temperature Oral (F) 2018-03-01 11:42:00 98 F [facility] [place] Respitory Rate 2018-02-28 14:00:00 Memori al [place] Respitory Rate 2018-02-28 13:00:00 Memori al [place] Respitory Rate 2018-02-28 12:00:00 Memori al [place] BMI Calculated 2018-02-28 10:03:00 Memori al [place] Height 2018-02-28 10:03:00 185.42 cm [facility] [place] Weight 2018-02-28 10:03:00 [facility] [place] BMI Calculated 2018-02-28 10:01:00 Memori al [place] Height 2018-02-28 10:01:00 185.42 cm [facility] [place] Weight 2018-02-28 10:01:00 [facility] [place] Temperature Oral (F) 2018-02-28 08:15:00 98.0 F [facility] [place] Systolic (mm Hg) 2018-02-28 08:15:00 Kuldeep rial [place] Diastolic (mm Hg) 2018-02-28 08:15:00 Mem orial [place] Respitory Rate 2018-02-28 08:15:00 Memori al [place] Systolic (mm Hg) 2018-02-28 07:45:00 Kuldeep rial [place] Diastolic (mm Hg) 2018-02-28 07:45:00 Mem orial [place] Respitory Rate 2018-02-28 07:45:00 Memori al [place] Systolic (mm Hg) 2018-02-28 07:27:00 Kuldeep rial [place] Diastolic (mm Hg) 2018-02-28 07:27:00 Mem orial [place] Temperature Oral (F) 2018-02-28 07:27:00 98.0 F [facility] [place] Respitory Rate 2018-02-28 07:27:00 Memori al [place] Temperature Oral (F) 2018-02-28 05:30:00 97.9 F [facility] [place] Height 2018-02-28 03:15:00 185.42 cm [facility] [place] Heart Rate 2018-02-28 03:15:00 [facility] [place] BMI Calculated 2018-02-28 03:15:00 Memori al [place] Weight 2018-02-28 03:15:00 [facility] [place] Systolic (mm Hg) 2018-02-21 16:48:00 Kuldeep rial [place] Diastolic (mm Hg) 2018-02-21 16:48:00 Mem orial [place] Temperature Oral (F) 2018-02-21 16:48:00 98.3 F [facility] [place] Respitory Rate 2018-02-21 16:48:00 Memori al [place] Heart Rate 2018-02-21 16:48:00 [facility] [place] Heart Rate 2018-02-21 13:47:00 [facility] [place] Temperature Oral (F) 2018-02-21 13:47:00 97.7 F [facility] [place] Systolic (mm Hg) 2018-02-21 13:47:00 Kuldeep rial [place] Diastolic (mm Hg) 2018-02-21 13:47:00 Mem orial [place] Respitory Rate 2018-02-21 13:47:00 Memori al [place] Temperature Oral (F) 2018-02-21 10:00:00 98.3 F [facility] [place] Systolic (mm Hg) 2018-02-21 10:00:00 Kuldeep rial [place] Diastolic (mm Hg) 2018-02-21 10:00:00 Mem orial [place] Heart Rate 2018-02-21 10:00:00 [facility] [place] Respitory Rate 2018-02-21 10:00:00 Memori al [place] BMI Calculated 2018-02-13 20:53:00 Memori al [place] Height 2018-02-13 20:53:00 185.42 cm [facility] [place] Weight 2018-02-13 20:53:00 [facility] [place] Height 2018-02-13 18:42:00 185.42 cm [facility] [place] Weight 2018-02-13 18:42:00 [facility] [place] BMI Calculated 2018-02-13 18:42:00 Memori al [place] Systolic (mm Hg) 2018-02-13 18:42:00 Kuldeep rial [place] Diastolic (mm Hg) 2018-02-13 18:42:00 Mem orial [place] Procedures Procedure Date / Time Performing Clinician Source Performed [id number] 2022-06-24 00:00:00 NGUCH.08 [facility] [id number] 2022-06-24 00:00:00 NGUCH.08 [facility] [id number] 2022-06-24 00:00:00 NGUCH.08 [facility] [id number] 2022-06-24 00:00:00 NGUCH.08 [facility] [id number] 2022-06-24 00:00:00 NGUCH.08 [facility] [id number] 2022-06-24 00:00:00 NGUCH.08 [facility] EXTERNAL PROVIDER - ADC 2020-11-03 05:01:00 Doctor Unassigned, [facility] REFERRAL [place] [facility] AGREEMENTS AUTHORIZATIONS 2019-11-11 05:01:00 Doctor Unassigned, [facility] AND IRREVOCABLE [place] [facility] ASSIGNMENTS (FORM 2001) CABG x 4 - Coronary 2017-11-02 05:00:00 [facility] [place] artery bypass grafts x 4 CABG - Coronary artery 2017-11-02 05:00:00 Doc vasquez [place] bypass graft Repair of umbilical 2016-03-05 00:00:00 [facility] [place] hernia Encounters Start End Encounter Admission Attending Care Care Encounter Source Date/Time Date/Time Type Type Clinicians Facility Department ID 2018-06-02 Inpatient E [facility] [id number] Mem oria 16:35:[address] [facility] 2022-06-24 2022-06-25 Inpatient EM NICHOLAS Red INTE.02 [id number] [facility] 02:18:00 11:01:00 Jamal 55 [facility] [place] 2022-06-24 2022-06-24 Outpatient VERNON Red LABO [id number] [facility] 06:25:00 06:25:00 Jamal 77 [facility] 2022-05-11 2022-05-11 Outpatient KAELA ALLEN [id number] Kaela 00:00:00 00:00:00 PABLO randall 2021-06-17 2021-06-17 Outpatient KAELA ALLEN [id number] Kaela 00:00:00 00:00:00 PABLO Raymondol tonia 2021-06-13 2021-06-13 Outpatient KAELA BAILEY [id number] Kaela 00:00:00 00:00:00 VERITO Raymondol tonia 2021-06-01 2021-06-01 Office Garfield Allen [id number] Kaela 11:00:00 11:15:00 Visit Pablo Méndez [id number] Se schaffer 1.2.7.2.686 [id number] 2021-05-31 2021-05-31 Outpatient KAELA ALLEN KAELA [id number] Kaela 10:30:00 10:30:00 PABLO Seybol d 2021-05-04 2021-05-04 Outpatient LAB90 KAELA KAELA [id number] Kaela 09:45:00 09:45:00 Seybol d 2021-05-04 2021-05-04 Outpatient KAELA ALLEN KAELA [id number] Kaela 00:00:00 00:00:00 PABLO Seybol d 2021-05-03 2021-05-03 Office Garfield Allen [id number] Kaela 14:15:00 15:00:00 Visit Pablo Méndez [id number] Se shcaffer 1.2.7.2.686 [id number] 2021-05-03 2021-05-03 Outpatient TOSHIA KAELA KAELA [id number] Kaela 00:00:00 00:00:00 PABLO Seybol tonia 2021-01-13 2021-01-13 Outpatient R KEYONA SUAZO [facility] 10 [id number] Univers 15:00:00 15:00:00 KEYONA SUAZO i ty of [facility] 2020-11-03 2020-11-03 Orders Doctor TERRY [id number] Univers 00:00:00 00:00:00 Only Unassigned, EMMA [id number] ity of [place] [facility] 4.2.7.2.686 Oni as [id number] [place] [address] Branch 2020-07-12 2020-07-12 Outpatient R TIN [facility] [id number] Univers 13:00:00 13:00:00 JD smith o f [facility] 2020-05-11 2020-05-11 Patient Sami [facility] [id number] Univers 00:00:00 00:00:00 Outreach Mahesh PRIMARY [id number] i ty of [facility] 4.2.7.2.686 [place] OLIVARES [id number] [address] 2020-05-112020-05-11 Patient [facility] 1.2.840.114 [id number] 00:00:00 00:00:00 Outreach Mahesh PRIMARY [id number] [facility] 4.2.7.2.686 PAVSUNILON [id number] 2020-02-06 2020-02-06 [facility] [id number] Univers 13:00:00 13:00:00 LUCITA smith [facility] 2020-01-19 2020-01-19 Telephone [facility] [id number] Univers 00:00:00 00:00:00 Jd Fierro [id number] ity [place] [id number] [address] 2020-01-19 2020-01-19 Telephone [facility] [id number] 00:00:00 00:00:00 Jd Fierro 350.1.13.10 [place] 4.2.7.2.[address] Professio [id number] 2020-01-14 2020-01-14 [facility] [id number] Univers 11:40:00 11:40:00 JD smith o f [facility] 2020-01-12 2020-01-12 Office [facility] [id number] Univers 12:41:56 13:52:29 Visit Jd Fierro 350.1.13.10 [place] [id number] [address] 2020-01-12 2020-01-12 Office [facility] [id number] 12:41:56 13:52:29 Visit Jd Fierro 350.1.13.10 [place] 4.2.7.2.686 Professio [id number] [address] 2020-01-12 2020-01-12 [facility] [id number] Univers 13:00:00 13:00:00 JD smith o f [facility] 2019-11-13 2019-11-13 Office Care, Denny Primary BRAZRHONDA 1.2.840 .114 [id number] Univers 13:03:27 14:10:15 Visit Arsen Dixon [facility] 350.1.13.10 ity [place] [id number] [facility] [address] NAJMA 2019-11-13 2019-11-13 Telephone Arsen Dixon LETY 1.2.840.114 [id number] Univers 00:00:00 00:00:00 [facility] 350.1.13.10 [place] y [place] [id number] [facility] 362 Branch 2019-11-11 2019-11-11 Outpatient R ARSEN DIXON [facility] [id number] Univers 10:30:00 10:30:00 ity of [facility] 2019-11-11 2019-11-11 Orders Doctor STEWART 1.2.840.114 [id number] Univers 00:00:00 00:00:00 Only Unassigned, EMMA 350.1.13.10 [facility]y [facility] [place] [facility] 4.2.7.2.[id number] [facility] 009 Branch 2019-05-27 2019-05-27 Telephone TERRY Roa 1.2.840.114 [id number] Univers 00:00:00 00:00:00 Sofia EMMA 350.1.13.10 it y of [facility] [place].2.[address] [place] [id number] [facility] 037 Branch 2019-03-28 2019-03-28 Telephone HUMPHREY Mcmahon 1.2.840.114 [id number] Univers 00:00:00 00:00:00 Edin [facility] [id number] [id number] [place] [id number] [facility] [address] 2018-08-16 2018-08-16 Observatio nullFlavo [facility] [id number] Memoria 01:10:48 18:24:00 jasmina Ahuja 03 l [facility] 2018-08-16 2018-08-16 Observatio nullFlavo [facility] [id number] Memoria 01:10:48 18:24:00 n r [place] 03 [facility] 2018-08-15 2018-08-16 Outpatient Emery, [facility] [id number] 20:10:48 13:24:00 Gladysisabella Roto 2018-08-16 2018-08-16 Outpatient E [facility] [id number] [facility] 01:28:00 01:28:00 2018-06-21 2018-06-21 Bedded [facility]Flavo [facility] [id number] Memoria 15:57:00 21:41:00 Outpatient r [place] 02 [facility] 2018-06-21 2018-06-21 Bedded nullFlavo [facility] [id number] Memoria 15:57:00 21:41:00 Outpatient r Seym[place] 02 [facility] 2018-06-21 2018-06-21 Outpatient Pedro [facility] [id number] 10:57:00 16:41:00 Pepito Tapia 2018-06-21 2018-06-21 Outpatient [facility] [id number] Memoria 10:57:00 10:57:00 [facility]-02 2018-06-03 Inpatient nullFlavo [facility] [id number] Memoria 20:34:00 23:50:00 r Seym[place] 01 [facility] 2018-06-02 2018-06-03 [facility] [id number] Memoria 20:34:00 23:50:00 r Seymour 01 [facility] 2018-06-02 2018-06-03 Outpatient Eddy, [facility] [id number] 15:34:00 18:50:00 Timothy 2018-05-09 2018-05-21 [facility] [id number] Memoria 18:05:00 17:09:00 r Seymour 68 l [facility] 2018-05-09 2018-05-21 [facility] [id number] Memoria 18:05:00 17:09:00 lizzie Ahuja 66 [facility] 2018-05-09 2018-05-21 Outpatient Gabe [facility] [id number] 12:05:00 12:09:00 Mimi 68 M 2018-05-08 2018-05-08 [place] [id number] Memoria 19:30:00 19:30:00 Pre-Reg r Cardiology 03 [facility] 2018-05-08 2018-05-08 Ambulatory [facility] [id number] Memoria 19:30:00 19:30:00 Pre-Reg r Cardiology 03 [facility] 2018-05-08 2018-05-08 Outpatient MHIE [place] [id number] Memoria 13:30:00 13:30:00 03 rebeca BeySeymour 2018-05-08 2018-05-08 [facility] [id number] 13:30:00 13:30:00 Hector Vanegas 2018-04-29 2018-04-29 [place] [id number] Memoria 16:30:00 16:30:00 Pre-Reg r Cardiology 02 [facility] 2018-04-29 2018-04-29 [place] [id number] Memoria 16:30:00 16:30:00 Pre-Reg r Cardiology 02 [facility] 2018-04-29 2018-04-29 Outpatient MHIE IE [id number] Memoria 10:30:00 10:30:00 02 [facility] 2018-04-29 2018-04-29 [facility] [id number] 10:30:00 10:30:00 Hector Vanegas 2018-04-05 2018-04-06 Outpt Diag [facility] [id number] Memoria 22:00:00 05:59:00 Services r Outpatient 00 [facility] 2018-04-05 2018-04-06 Outpt Diag nullFlavo [facility] [id number] Memoria 22:00:00 05:59:00 Services r Outpatient 00 [facility] 2018-04-05 2018-04-05 Outpatient Nghia Oneal [id number]. [id number] 16:00:00 23:59:00 [id number] 5.30 2018-02-28 2018-03-01 [facility] [id number] Memoria 09:45:00 20:05:00 r [place] 63 l [facility] 2018-02-28 2018-03-01 [facility] [id number] Memoria 09:45:00 20:05:00 r [place] 63 l [facility] 2018-02-28 2018-03-01 Outpatient Pe, Jamie Jamie [facility] [id number] 03:45:00 14:05:00 A 63 2018-02-28 2018-02-28 [facility] [id number] Memoria 03:10:00 08:14:00 r [place] 00 l [facility] 2018-02-28 2018-02-28 [facility] [id number] Memoria 03:10:00 08:14:00 r [place] 00 l [facility] 2018-02-27 2018-02-[address] [id number] 21:10:00 02:14:00 Brigido Jennings 2018-02-13 2018-02-21 [facility] [id number] Memoria 20:01:00 20:00:00 r Seymour 48 l [facility] 2018-02-13 2018-02-21 [facility] [id number] Memoria 20:01:00 20:00:00 r Seymour 48 l [facility] 2018-02-13 2018-02-21 Outpatient Venkata [facility] [id number] 14:01:00 14:00:00 Chi 48 Gia 2018-02-13 2018-02-14 Outpatient nullFlavo [facility] [id number] Memoria 18:30:00 05:59:59 r Cardiology 01 [facility] 2018-02-13 2018-02-14 Outpatient nullFlavo [facility] [id number] Memoria 18:30:00 05:59:59 r Cardiology 01 [facility] 2018-02-13 2018-02-13 Outpatient Seymour [facility] [id number] 12:30:00 23:59:59 Hector Gene 2018-02-13 2018-02-13 Outpatient [facility] [id number] Memoria 12:30:00 12:30:00 01 rebeca Ahuja 2018-02-11 2018-02-11 Ambulatory [facility]Flavo [facility] [id number] Memoria 17:00:00 17:00:00 Pre-Reg r Cardiology 00 [facility] 2018-02-11 2018-02-11 Ambulatory nullFlavo [facility] [id number] Memoria 17:00:00 17:00:00 Pre-Reg r Cardiology 00 [facility] 2018-02-11 2018-02-11 Outpatient [place], [facility] [id number] 11:00:00 11:00:00 Hector Gene 00 Results Test [...] . [Automated mess age] The system which ge nerated this result tra nsmitted reference range : 0-. The reference range was not used to interpr et this result as normal/abnormal . HDL CHOLESTEROL 47 MG/DL 40-59 N (test code = HDL) NON-HDL CHOLESTEROL 89 mg/dL <130 (test code = NHDL) LIPOPROTEIN LDL 82 MG/DL 0-129 N <100 OPTIMAL 100 - 129 (test code = LDL) NEAR OPTIM AL/ABOVE [id number] - 15 9 VEAUAUVZXD669 - 189 HIGH>OR= 190 VE RY HIGHNOTE THAT G UIDELINES ARE PROVIDED BY NATIONAL CHOLESTEROLEDUC ATION PROGRAM ADULT T REATMENT PANEL III LDL/HDL (test code 1.74 Ratio See_Comment N [Automat ed message] The = LDL/HDL) system which ge nerated this result tra nsmitted reference range : 1.48-3.22 Avg. The reference range was not used to interpr et this result as normal/abnormal . BASIC METABOLIC [id number] 05:35:00 Test Item Value Reference Range Interpretation [...] MG/DL 8.5-10.1 L = CA) CBC W/AUTO [id number] 05:34:00 Test Item Value Reference Range Interpretation [...] NT WITH AUTO DIFFERENTI AL. COAGULATION TIME [id number] 02:25:00 Test Item Value Reference Range Interpretation Comments COAGULATION TIME ACTIVATED (test code 267 SEC 74-125 H = ACT) - XR CHEST 1 [id number] 01:41:00 [facility] 1955 Sex: M Name: PATITO HARDY [facility] : 1955 Age/S: 66 / M [id number] [place] Unit #: [id number] Loc: [place] [address] Phys: Sydney De Leon MD Acct: [id number] Dis Date: Status: REG ER PHONE #: [phone] Exam Date: 06/24/2022138 FAX #: Reason: chest pain EXAMS: CPT: [id number] XR CHEST 1 V 71636 Fluoro Time: DAP (Gy m2): Air Kerma (mGy): AP Portable Chest Location Code M12 HISTORY: chest pain FINDINGS: The left lung base and costophrenic angle are not fully included in the gbiit-je-ybju. Mild atelectatic changes are present in the left lower lobe. Right lung is clear. There is no pneumothorax. Cardiac silhouette and mediastinum appear within normal limits. IMPRESSION: Mild left basilar montoya bsegmental atelectasis. Limited study. at 0141 Reported and signed by: Janet Queen M.D. CC: Sydney De Leon MD PAGE 1 Signed Report Name: PATITO HARDY : 1955 Age/S: 66 / M [id number] [place] Unit #: [id number] Loc: [place] [address] Phys: Sydney De Leon MD Acct: [id number] Dis Date: Status: REG ER PHONE #: [phone] Exam Date: 06/24/2022 0139 FAX #: Reason: chest pain EXAMS: CPT: [id number] XR CHEST 1 V 65221 Fluoro Time: DAP (Gy m2): Air Kerma (mGy): (Continued) Technologist: Alice Posada, RT(R)(CT) Trnscb Date/Time: 06/24/2022 (140) DelaneyMA50 Orig Print D/T: S: 06/24/2022 (014) PAGE 2 Signed ReportCREATINE KINASE (CK)2022-06-24 01:38:00 Test Item Value Reference Range Interpretation Comments CREATINE KINASE (CK) (test code = 58 Unit/L 26-192 N CK) Completed by Nursing: NONT PRO-BRAIN NATRIURETIC [id number] 01:38:00 Test Item Value Reference Range Interpretation Comments NT PRO-BRAIN NATRIURETIC PEPTI 127 PG/ML 0-100 H (test code = PROBNP) Completed by Nursing: NOTROP-I HIGH [id number] 01:38:00 Test Item Value Reference Range Interpretation [...] clinical conditions, the FourthUnive rsal Definition of Bradley haskinsal Infarction stressesclinica l assessment and the demonstration o f a rise and/orfall in s erial troponin result s above the URL. Results fr om different metho dologies should not be c omparedto one another as quantitative re sults and URLs may varyby method. Completed by Nursing: [id number] 01:38:00 Test Item Value Reference Range Interpretation [...] TESTS AND APPROPRIATECLIN ICAL EUALUATIONS. BASIC METABOLIC [id number] 01:38:00 Test Item Value Reference Range Interpretation [...] 8.5-10.1 N = CA) Completed by Nursing: GRAEME W/O [id number] 01:19:00 Test Item Value Reference Range Interpretation [...] = 9.90 fL 7.0-9.6 H MPV) CHEM [id number] 09:13:00 Test Item Value Reference Range Interpretation Comments Bili Indirect (test code Unable to Calculate <=1.0 = Bili Indirect) [facility] [employer] [id number] 09:13:00 Test Item Value Reference Range Interpretation Comments Bili Direct (test code = Bili Direct) no gt <=0.3 [facility] [employer] [id number] 09:13:00 Test Item Value Reference Range Interpretation Comments Total Protein (test code = Total 6.9 6.4-8.4 Protein) [facility] [employer] [id number] 09:13:00 Test Item Value Reference Range Interpretation Comments Albumin Lvl (test code = Albumin Lvl) 3.0 3.5-5.0 [facility] [employer] [id number] 09:13:00 Test Item Value Reference Range Interpretation Comments Globulin (test code = Globulin) 3.9 2.7-4.2 [facility]2019-06-14 09:13:00 Test Item Value Reference Range Interpretation Comments Alk Phos (test code = Alk Phos) 214 39-136 [facility]2019-06-14 09:13:00 Test Item Value Reference Range Interpretation Comments Bili Total (test code = Bili Total) 0.3 0.2-1.3 [facility]2019-06-14 09:13:00 Test Item Value Reference Range Interpretation Comments AST (test code = AST) 207 <=37 [facility]2019-06-14 09:13:00 Test Item Value Reference Range Interpretation Comments A/G Ratio (test code = A/G Ratio) 0.8 1 0.7-1.6 [facility]2019-06-14 09:13:00 Test Item Value Reference Range Interpretation Comments ALT (test code = ALT) 148 <=65 [facility]evUFDYFKIOBGEU1213-24-36 09:13:00 Test Item Value Reference Range Interpretation Comments AGAP (test code = AGAP) 11.2 10.0-20.0 [facility]WbgrcxlUAMKKMUNCVTG3596-43-49 09:13:00 Test Item Value Reference Range Interpretation Comments eGFR (test code = eGFR) 85 [facility]BbczhtjYLFMGVHUFLGD3783-46-54 09:13:00 Test Item Value Reference Range Interpretation Comments Creatinine Lvl (test code = Creatinine 0.96 0.50-1.40 Lvl) [facility]OlmiwvpRJGIPNOXJGUV9220-95-14 09:13:00 Test Item Value Reference Range Interpretation Comments Potassium Lvl (test code = Potassium 4.2 3.5-5.1 Lvl) [facility]GgvlvafMDTKVSKPLKTK7945-48-43 09:13:00 Test Item Value Reference Range Interpretation Comments Sodium Lvl (test code = Sodium Lvl) 141 135-145 [facility]VirhfdyBWSSKGVXLSYP0690-73-68 09:13:00 Test Item Value Reference Range Interpretation Comments Chloride Lvl (test code = Chloride Lvl) 110 95-109 [facility]RfnydkgOVCYPZEZTUPZ1121-14-51 09:13:00 Test Item Value Reference Range Interpretation Comments CO2 (test code = CO2) 24 24-32 [facility]EhflchdTWCACPFFIFXY0401-36-36 09:13:00 Test Item Value Reference Range Interpretation Comments BUN (test code = BUN) 19 7-22 [facility] MichiganBsikgmhAEKOACAGKSAC4648-70-75 09:13:00 Test Item Value Reference Range Interpretation Comments Glucose Lvl (test code = Glucose Lvl) 86 70-99 [facility]PjjszeyGXUTJTGZAPPN1923-54-08 09:13:00 Test Item Value Reference Range Interpretation Comments Calcium Lvl (test code = Calcium Lvl) 9.0 8.5-10.5 [facility] CenterGowxgzyEGMJJNXHFQ3112-03-05 09:13:00 Test Item Value Reference Range Interpretation Comments Microcyte (test code = 1+ *ABN*(08/16/18 Microcyte) 4:13 AM) [facility] CenterPqmdxkzQCFLAWQSUD4985-24-45 09:13:00 Test Item Value Reference Range Interpretation Comments Neutrophils # (test code = Neutrophils 2.7 1.5-8.1 #) [facility] CenterPididhbNGOZRXVVQD5684-28-33 09:13:00 Test Item Value Reference Range Interpretation Comments Lymphocytes # (test code = Lymphocytes 1.3 1.0-5.5 #) [facility] CenterHvghkbwHPCTQWFINS4378-11-32 09:13:00 Test Item Value Reference Range Interpretation Comments Segs (test code = Segs) 56.2 45.0-75.0 [facility] CenterUnxqotmWVKOCRVVJD4678-87-98 09:13:00 Test Item Value Reference Range Interpretation Comments Monocytes # (test code = Monocytes #) 0.4 <=0.8 [facility] CenterOrhmsxhIFNYVUMHEG6264-96-25 09:13:00 Test Item Value Reference Range Interpretation Comments Lymphocytes (test code = Lymphocytes) 26.8 20.0-40.0 [facility] CenterZdhtdnxWDCJWTMOUP4172-08-87 09:13:00 Test Item Value Reference Range Interpretation Comments Monocytes (test code = Monocytes) 8.7 2.0-12.0 [facility] CenterCtlxqmlRCFKIJMECO0755-50-37 09:13:00 Test Item Value Reference Range Interpretation Comments Basophils (test code = Basophils) 2.1 <=1.0 [facility] CenterGotbosxICBCTPSYHK2319-89-08 09:13:00 Test Item Value Reference Range Interpretation Comments Eosinophils (test code = Eosinophils) 6.2 <=4.0 [facility] CenterMoexhquZRWFTCUMOF1823-79-69 09:13:00 Test Item Value Reference Range Interpretation Comments Basophils # (test code = Basophils #) 0.1 <=0.2 [facility] CenterYiendkqQMXLGOAXXA9328-52-16 09:13:00 Test Item Value Reference Range Interpretation Comments Eosinophils # (test code = Eosinophils 0.3 <=0.5 #) [facility] CenterOzqzwmaYIOXDHIKDM7261-74-76 09:13:00 Test Item Value Reference Range Interpretation Comments MCV (test code = MCV) 77.7 80.0-94.0 [facility] CenterPjwqrplWMOKMJZWXQ6649-31-51 09:13:00 Test Item Value Reference Range Interpretation Comments Hgb (test code = Hgb) 10.5 14.0-18.0 [facility] CenterRzqfzunLJXLWUVEEF9610-07-52 09:13:00 Test Item Value Reference Range Interpretation Comments Hct (test code = Hct) 33.2 42.0-54.0 [facility] CenterFvgplfaWMZVTWCPLE5884-01-27 09:13:00 Test Item Value Reference Range Interpretation Comments WBC (test code = WBC) 4.7 3.7-10.4 [facility] CenterKhrhjdtQBQPLLIVXP2755-66-70 09:13:00 Test Item Value Reference Range Interpretation Comments RBC (test code = RBC) 4.27 4.70-6.10 [facility] CenterXmpmjqeWJVYQWIPDT3137-61-83 09:13:00 Test Item Value Reference Range Interpretation Comments MCH (test code = MCH) 24.5 pg 27.0-31.0 [facility] CenterUyuauxoXQLDEZRPRF6121-46-68 09:13:00 Test Item Value Reference Range Interpretation Comments Platelet (test code = Platelet) 267 133-450 [facility] CenterQvohiitDHYXZVAHUK0359-67-73 09:13:00 Test Item Value Reference Range Interpretation Comments MPV (test code = MPV) 7.8 7.4-10.4 [facility] CenterTsdlpxjBTGFQXWKWW1727-47-00 09:13:00 Test Item Value Reference Range Interpretation Comments MCHC (test code = MCHC) 31.5 32.0-36.0 [facility] CenterVinyyyhWFQVHBFPSL9383-85-53 09:13:00 Test Item Value Reference Range Interpretation Comments RDW (test code = RDW) 19.2 11.5-14.5 [facility]2019-06-14 09:13:00 Test Item Value Reference Range Interpretation Comments Bili Indirect Unable to See_Comment [Automated (test code = Bili Calculate message] T he system Indirect) which generated this result transmitted reference range : <=1.0. The reference range was not used to interpret this result as normal/abnormal . [facility]2019-06-14 09:13:00 Test Item Value Reference Range Interpretation Comments Bili Direct (test code no gt See_Comment [Aut omated message] The = Bili Direct) system which generated this result tra nsmitted reference range : <=0.3. The reference r ondina was not used to int erpret this result as cassie l/abnormal. [facility]2019-06-14 09:13:00 Test Item Value Reference Range Interpretation Comments Total Protein (test code = Total 6.9 6.4-8.4 Protein) [facility]2019-06-14 09:13:00 Test Item Value Reference Range Interpretation Comments Albumin Lvl (test code = Albumin Lvl) 3.0 3.5-5.0 [facility]2019-06-14 09:13:00 Test Item Value Reference Range Interpretation Comments Globulin (test code = Globulin) 3.9 2.7-4.2 [facility]2019-06-14 09:13:00 Test Item Value Reference Range Interpretation Comments Alk Phos (test code = Alk Phos) 214 39-136 [facility]2019-06-14 09:13:00 Test Item Value Reference Range Interpretation Comments Bili Total (test code = Bili Total) 0.3 0.2-1.3 [facility]2019-06-14 09:13:00 Test Item Value Reference Range Interpretation Comments AST (test code = AST) 207 See_Comment [Auto mated message] The system which ge nerated this result transmit garrett reference range : <=37. The reference range was not used to interpr et this result as cassie l/abnormal. [facility]2019-06-14 09:13:00 Test Item Value Reference Range Interpretation Comments A/G Ratio (test code = A/G Ratio) 0.8 1 0.7-1.6 [place] 416249-06-14 09:13:00 Test Item Value Reference Range Interpretation Comments ALT (test code = ALT) 148 See_Comment [Auto mated message] The system which ge nerated this result transmit garrett reference range : <=65. The reference range was not used to interpr et this result as cassie l/abnormal. [facility]DuztxrpVKTFBXIXZUSX6781-83-05 09:13:00 Test Item Value Reference Range Interpretation Comments AGAP (test code = AGAP) 11.2 10.0-20.0 [facility]BvghyueGAZRQLFPDEQH5643-75-79 09:13:00 Test Item Value Reference Range Interpretation Comments eGFR (test code = eGFR) 85 [facility]LdejtaqCJCEQZCWBGMB0751-85-03 09:13:00 Test Item Value Reference Range Interpretation Comments Creatinine Lvl (test code = Creatinine 0.96 0.50-1.40 Lvl) [facility]PgiqidkRGTDZIPIKBRY8840-19-17 09:13:00 Test Item Value Reference Range Interpretation Comments Potassium Lvl (test code = Potassium 4.2 3.5-5.1 Lvl) [facility]KwnzecqHKBINVKPXUNQ0244-59-27 09:13:00 Test Item Value Reference Range Interpretation Comments Sodium Lvl (test code = Sodium Lvl) 141 135-145 [facility]GyoazpeZNUTIFDNUTRS4566-75-08 09:13:00 Test Item Value Reference Range Interpretation Comments Chloride Lvl (test code = Chloride Lvl) 110 95-109 [facility]OczhbwsSILAQOTGRVRE5675-24-04 09:13:00 Test Item Value Reference Range Interpretation Comments CO2 (test code = CO2) 24 24-32 [facility]JlurarwFQAQQSECGWMY9061-98-11 09:13:00 Test Item Value Reference Range Interpretation Comments BUN (test code = BUN) 19 7-22 [facility]KnemlvuTTHZLLJOCILR3489-76-92 09:13:00 Test Item Value Reference Range Interpretation Comments Glucose Lvl (test code = Glucose Lvl) 86 70-99 [facility]FywbivwAWRTEKNNBBET0383-66-21 09:13:00 Test Item Value Reference Range Interpretation Comments Calcium Lvl (test code = Calcium Lvl) 9.0 8.5-10.5 [facility] CenterNmjyksyBFSZLFAEUA7769-40-57 09:13:00 Test Item Value Reference Range Interpretation Comments Microcyte (test code = 1+ *ABN*(08/16/18 Microcyte) 4:13 AM) [facility] CenterEywhkcsQHXVGTASWA8416-72-96 09:13:00 Test Item Value Reference Range Interpretation Comments Neutrophils # (test code = Neutrophils 2.7 1.5-8.1 #) [facility] CenterYcdzpkuKTLESWSBON3344-56-83 09:13:00 Test Item Value Reference Range Interpretation Comments Lymphocytes # (test code = Lymphocytes 1.3 1.0-5.5 #) [facility] CenterXkonkgaZIJGTQLRYG2769-95-94 09:13:00 Test Item Value Reference Range Interpretation Comments Segs (test code = Segs) 56.2 45.0-75.0 [facility] CenterIaekgjcXATXNLGJVB2239-76-12 09:13:00 Test Item Value Reference Range Interpretation Comments Monocytes # (test code 0.4 See_Comment [Aut omated message] The = Monocytes #) system which generated this result tra nsmitted reference range : <=0.8. The reference r ondina was not used to int erpret this result as normal/abnormal . [facility] CenterNtctihrKUWWMJYCMJ8556-17-97 09:13:00 Test Item Value Reference Range Interpretation Comments Lymphocytes (test code = Lymphocytes) 26.8 20.0-40.0 [facility] CenterQjahyxrKSWDSYFIFU7639-60-81 09:13:00 Test Item Value Reference Range Interpretation Comments Monocytes (test code = Monocytes) 8.7 2.0-12.0 [facility] CenterZnfpbinNHWHHVARJF2205-37-05 09:13:00 Test Item Value Reference Range Interpretation Comments Basophils (test code = 2.1 See_Comment [Aut omated message] The Basophils) system which ge nerated this result tra nsmitted reference range : <=1.0. The reference r ondina was not used to int erpret this result as normal/abnormal . [facility] CenterOzghyiaDUBCXZVKND0005-62-37 09:13:00 Test Item Value Reference Range Interpretation Comments Eosinophils (test code = 6.2 See_Comment [A utomated message] The Eosinophils) system which ge nerated this result tra nsmitted reference range : <=4.0. The reference r ondina was not used to int erpret this result as normal/abnormal . [facility] CenterWpjtdglKILNAFXKLG6872-76-25 09:13:00 Test Item Value Reference Range Interpretation Comments Basophils # (test code 0.1 See_Comment [Aut omated message] The = Basophils #) system which generated this result tra nsmitted reference range : <=0.2. The reference r ondina was not used to int erpret this result as normal/abnormal . [facility] CenterDxhpcyqXEZYFFRZDE5887-17-70 09:13:00 Test Item Value Reference Range Interpretation Comments Eosinophils # (test code 0.3 See_Comment [A utomated message] The = Eosinophils #) system whic h generated this result tra nsmitted reference range : <=0.5. The reference r ondina was not used to int erpret this result as normal/abnormal . [facility] CenterMfrtsqoMPDNRBGDUJ2927-83-94 09:13:00 Test Item Value Reference Range Interpretation Comments MCV (test code = MCV) 77.7 80.0-94.0 [facility] CenterYjxdhxcDGEAXCMFIJ1796-99-46 09:13:00 Test Item Value Reference Range Interpretation Comments Hgb (test code = Hgb) 10.5 14.0-18.0 [facility] CenterWsixkgoYVDXONXMOV7148-28-22 09:13:00 Test Item Value Reference Range Interpretation Comments Hct (test code = Hct) 33.2 42.0-54.0 [facility] CenterTzmvpsxDJGTZUJWNN1551-27-58 09:13:00 Test Item Value Reference Range Interpretation Comments WBC (test code = WBC) 4.7 3.7-10.4 [facility] CenterDjrxaabEXUAVUUSVX9744-18-21 09:13:00 Test Item Value Reference Range Interpretation Comments RBC (test code = RBC) 4.27 4.70-6.10 [facility] CenterUcznjyjINRGHKZNBE4729-08-82 09:13:00 Test Item Value Reference Range Interpretation Comments MCH (test code = MCH) 24.5 pg 27.0-31.0 [facility] CenterAcpefqyQFEYSHFCRR2598-39-12 09:13:00 Test Item Value Reference Range Interpretation Comments Platelet (test code = Platelet) 267 133-450 [facility] [facility]xv[facility]kukNXMDEAXYXK0092[facility]24-23 09:13:00 Test Item Value Reference Range Interpretation Comments MPV (test code = MPV) 7.8 7.4-10.4 [facility] CenterQilowgvOIPQPWTDWQ5851-01-98 09:13:00 Test Item Value Reference Range Interpretation Comments MCHC (test code = MCHC) 31.5 32.0-36.0 [facility] CenterRofnsckNHNEMPQRPK9719-62-95 09:13:00 Test Item Value Reference Range Interpretation Comments RDW (test code = RDW) 19.2 11.5-14.5 [facility]2019-06-14 09:13:00 Test Item Value Reference Range Interpretation Comments Bili Indirect Unable to See_Comment [Automated (test code = Bili Calculate message] T he system Indirect) which generated this result transmitted reference range : <=1.0. The reference range was not used to interpret this result as normal/abnormal . [facility]2019-06-14 09:13:00 Test Item Value Reference Range Interpretation Comments Bili Direct (test code no gt See_Comment [Aut omated message] The = Bili Direct) system which generated this result tra nsmitted reference range : <=0.3. The reference r ondina was not used to int erpret this result as cassie l/abnormal. [facility]2019-06-14 09:13:00 Test Item Value Reference Range Interpretation Comments Total Protein (test code = Total 6.9 6.4-8.4 Protein) [facility]2019-06-14 09:13:00 Test Item Value Reference Range Interpretation Comments Albumin Lvl (test code = Albumin Lvl) 3.0 3.5-5.0 [facility]2019-06-14 09:13:00 Test Item Value Reference Range Interpretation Comments Globulin (test code = Globulin) 3.9 2.7-4.2 [facility]2019-06-14 09:13:00 Test Item Value Reference Range Interpretation Comments Alk Phos (test code = Alk Phos) 214 39-136 [facility]2019-06-14 09:13:00 Test Item Value Reference Range Interpretation Comments Bili Total (test code = Bili Total) 0.3 0.2-1.3 [place] 416249-06-14 09:13:00 Test Item Value Reference Range Interpretation Comments AST (test code = AST) 207 See_Comment [Auto mated message] The system which ge nerated this result transmit garrett reference range : <=37. The reference range was not used to interpr et this result as cassie l/abnormal. [facility]2019-06-14 09:13:00 Test Item Value Reference Range Interpretation Comments A/G Ratio (test code = A/G Ratio) 0.8 1 0.7-1.6 [place] 416249-06-14 09:13:00 Test Item Value Reference Range Interpretation Comments ALT (test code = ALT) 148 See_Comment [Auto mated message] The system which ge nerated this result transmit garrett reference range : <=65. The reference range was not used to interpr et this result as cassie l/abnormal. [facility]ueAVJHYIGMOLGP9207-45-22 09:13:00 Test Item Value Reference Range Interpretation Comments AGAP (test code = AGAP) 11.2 10.0-20.0 [facility]PxcoadyFFRTEWVZRTCB2454-14-21 09:13:00 Test Item Value Reference Range Interpretation Comments eGFR (test code = eGFR) 85 [facility]VdulyhvPKHVDFQMPVDF5611-12-74 09:13:00 Test Item Value Reference Range Interpretation Comments Creatinine Lvl (test code = Creatinine 0.96 0.50-1.40 Lvl) [facility]BnjilbmUFMXDKLBAYUC0051-64-29 09:13:00 Test Item Value Reference Range Interpretation Comments Potassium Lvl (test code = Potassium 4.2 3.5-5.1 Lvl) [facility] MichiganXnzzlelOTMYWAWKRKPR5099-46-08 09:13:00 Test Item Value Reference Range Interpretation Comments Sodium Lvl (test code = Sodium Lvl) 141 135-145 [facility]WgeesddAZUGIWVJRGVK5172-90-21 09:13:00 Test Item Value Reference Range Interpretation Comments Chloride Lvl (test code = Chloride Lvl) 110 95-109 [facility]VynnfqqMQNUYOYQBCPX5179-22-09 09:13:00 Test Item Value Reference Range Interpretation Comments CO2 (test code = CO2) 24 24-32 [facility] MichiganSufgcgmDYIHGAGJHCVI4928-97-73 09:13:00 Test Item Value Reference Range Interpretation Comments BUN (test code = BUN) 19 7-22 [facility]VjyapjyXNWHZOGADPXZ9712-30-69 09:13:00 Test Item Value Reference Range Interpretation Comments Glucose Lvl (test code = Glucose Lvl) 86 70-99 [facility]XywjrdaZLCRRSUSOZDH0509-52-55 09:13:00 Test Item Value Reference Range Interpretation Comments Calcium Lvl (test code = Calcium Lvl) 9.0 8.5-10.5 [facility] HospitalTxotejmVYVHJDDMJE8920-14-70 09:13:00 Test Item Value Reference Range Interpretation Comments Microcyte (test code = 1+ *ABN*(08/16/18 Microcyte) 4:13 AM) [facility] CenterWttgwqySFRHNNKUVH3204-12-24 09:13:00 Test Item Value Reference Range Interpretation Comments Neutrophils # (test code = Neutrophils 2.7 1.5-8.1 #) [facility] CenterDkqtmfkSPQPGOZTCY2709-28-35 09:13:00 Test Item Value Reference Range Interpretation Comments Lymphocytes # (test code = Lymphocytes 1.3 1.0-5.5 #) [facility] CenterIllypcpRNFSAMQWPF9366-13-52 09:13:00 Test Item Value Reference Range Interpretation Comments Segs (test code = Segs) 56.2 45.0-75.0 [facility] CenterIhzccfrLZMNSRNIMS4661-41-63 09:13:00 Test Item Value Reference Range Interpretation Comments Monocytes # (test code 0.4 See_Comment [Aut omated message] The = Monocytes #) system which generated this result tra nsmitted reference range : <=0.8. The reference r ondina was not used to int erpret this result as normal/abnormal . [facility] CenterAmeyvfyVLHUXQMZFV6811-06-71 09:13:00 Test Item Value Reference Range Interpretation Comments Lymphocytes (test code = Lymphocytes) 26.8 20.0-40.0 [facility] CenterZsnrqdnNGDUARJFUW0722-38-89 09:13:00 Test Item Value Reference Range Interpretation Comments Monocytes (test code = Monocytes) 8.7 2.0-12.0 [facility] CenterLzextkcVXDZSPEFDH4553-22-89 09:13:00 Test Item Value Reference Range Interpretation Comments Basophils (test code = 2.1 See_Comment [Aut omated message] The Basophils) system which ge nerated this result tra nsmitted reference range : <=1.0. The reference r ondina was not used to int erpret this result as normal/abnormal . [facility] CenterBcbdyldANYGHCRYCA1491-52-84 09:13:00 Test Item Value Reference Range Interpretation Comments Eosinophils (test code = 6.2 See_Comment [A utomated message] The Eosinophils) system which ge nerated this result tra nsmitted reference range : <=4.0. The reference r ondina was not used to int erpret this result as normal/abnormal . [facility] CenterMprgmjoDEMPHDHVBO5042-87-78 09:13:00 Test Item Value Reference Range Interpretation Comments Basophils # (test code 0.1 See_Comment [Aut omated message] The = Basophils #) system which generated this result tra nsmitted reference range : <=0.2. The reference r ondina was not used to int erpret this result as normal/abnormal . [facility] CenterYbjicalRVYESEMJVB4026-19-90 09:13:00 Test Item Value Reference Range Interpretation Comments Eosinophils # (test code 0.3 See_Comment [A utomated message] The = Eosinophils #) system whic h generated this result tra nsmitted reference range : <=0.5. The reference r ondina was not used to int erpret this result as normal/abnormal . [facility] CenterCxvrpnvZJBSUBPBMU1833-75-63 09:13:00 Test Item Value Reference Range Interpretation Comments MCV (test code = MCV) 77.7 80.0-94.0 [facility] CenterDmyxdisJPGMHGYIAD9342-56-13 09:13:00 Test Item Value Reference Range Interpretation Comments Hgb (test code = Hgb) 10.5 14.0-18.0 [facility] CenterYtrvgagNZKHOLVXPH3513-06-99 09:13:00 Test Item Value Reference Range Interpretation Comments Hct (test code = Hct) 33.2 42.0-54.0 [facility] CenterTvolbieGHJIUKVXIK1246-68-27 09:13:00 Test Item Value Reference Range Interpretation Comments WBC (test code = WBC) 4.7 3.7-10.4 [facility] CenterOwbawisGUGNSVZEIN1537-14-06 09:13:00 Test Item Value Reference Range Interpretation Comments RBC (test code = RBC) 4.27 4.70-6.10 [facility] CenterFwwjurjRJTYZEYKYP3460-12-39 09:13:00 Test Item Value Reference Range Interpretation Comments MCH (test code = MCH) 24.5 pg 27.0-31.0 [facility] CenterWoqsqjmAWXUGGZEUB2030-95-58 09:13:00 Test Item Value Reference Range Interpretation Comments Platelet (test code = Platelet) 267 133-450 [facility] CenterUyqnrwtXJQDRWTGJI1643-12-13 09:13:00 Test Item Value Reference Range Interpretation Comments MPV (test code = MPV) 7.8 7.4-10.4 [facility] CenterBogdliwDUALHUCGJO2204-94-76 09:13:00 Test Item Value Reference Range Interpretation Comments MCHC (test code = MCHC) 31.5 32.0-36.0 [facility] CenterEespwmfHNYXSWCYQY0479-75-60 09:13:00 Test Item Value Reference Range Interpretation Comments RDW (test code = RDW) 19.2 11.5-14.5 [facility]2019-06-14 09:13:00 Test Item Value Reference Range Interpretation Comments Bili Indirect Unable to See_Comment [Automated (test code = Bili Calculate message] T he system Indirect) which generated this result transmitted reference range : <=1.0. The reference range was not used to interpret this result as normal/abnormal . [facility]2019-06-14 09:13:00 Test Item Value Reference Range Interpretation Comments Bili Direct (test code no gt See_Comment [Aut omated message] The = Bili Direct) system which generated this result tra nsmitted reference range : <=0.3. The reference r ondina was not used to int erpret this result as cassie l/abnormal. [facility]2019-06-14 09:13:00 Test Item Value Reference Range Interpretation Comments Total Protein (test code = Total 6.9 6.4-8.4 Protein) [facility]2019-06-14 09:13:00 Test Item Value Reference Range Interpretation Comments Albumin Lvl (test code = Albumin Lvl) 3.0 3.5-5.0 [facility]2019-06-14 09:13:00 Test Item Value Reference Range Interpretation Comments Globulin (test code = Globulin) 3.9 2.7-4.2 [facility]2019-06-14 09:13:00 Test Item Value Reference Range Interpretation Comments Alk Phos (test code = Alk Phos) 214 39-136 [place] 416249-06-14 09:13:00 Test Item Value Reference Range Interpretation Comments Bili Total (test code = Bili Total) 0.3 0.2-1.3 [place] 416249-06-14 09:13:00 Test Item Value Reference Range Interpretation Comments AST (test code = AST) 207 See_Comment [Auto mated message] The system which ge nerated this result transmit garrett reference range : <=37. The reference range was not used to interpr et this result as cassie l/abnormal. [facility]2019-06-14 09:13:00 Test Item Value Reference Range Interpretation Comments A/G Ratio (test code = A/G Ratio) 0.8 1 0.7-1.6 [facility] MKZMF9802-29-99 09:13:00 Test Item Value Reference Range Interpretation Comments ALT (test code = ALT) 148 See_Comment [Auto mated message] The system which ge nerated this result transmit garrett reference range : <=65. The reference range was not used to interpr et this result as cassie l/abnormal. [facility]CkzzmagYIKRQIQMZSHN6999-43-63 09:13:00 Test Item Value Reference Range Interpretation Comments AGAP (test code = AGAP) 11.2 10.0-20.0 [facility]KairsdkLXLKQRDTZZSM4872-15-15 09:13:00 Test Item Value Reference Range Interpretation Comments eGFR (test code = eGFR) 85 [facility]VosbdlvTZLQSBRHJYNG0016-64-84 09:13:00 Test Item Value Reference Range Interpretation Comments Creatinine Lvl (test code = Creatinine 0.96 0.50-1.40 Lvl) [facility]CeyzwhjTKILPPHVWBTX3090-00-62 09:13:00 Test Item Value Reference Range Interpretation Comments Potassium Lvl (test code = Potassium 4.2 3.5-5.1 Lvl) [facility]SxkkldwHMVUUFFXZHBL0417-88-36 09:13:00 Test Item Value Reference Range Interpretation Comments Sodium Lvl (test code = Sodium Lvl) 141 135-145 [facility]VfjybciNTUVCAPHUAOT4210-26-84 09:13:00 Test Item Value Reference Range Interpretation Comments Chloride Lvl (test code = Chloride Lvl) 110 95-109 [facility]AqgrrsyTSUPAZNRBMAW2899-40-01 09:13:00 Test Item Value Reference Range Interpretation Comments CO2 (test code = CO2) 24 24-32 [facility]SnczgynLNWYEGGNDBOK2137-54-32 09:13:00 Test Item Value Reference Range Interpretation Comments BUN (test code = BUN) 19 7-22 [facility]UeobwzoKMXEKGILHZGM7791-32-05 09:13:00 Test Item Value Reference Range Interpretation Comments Glucose Lvl (test code = Glucose Lvl) 86 70-99 [facility]QoozuubDBDDTGKWXSOJ3044-07-73 09:13:00 Test Item Value Reference Range Interpretation Comments Calcium Lvl (test code = Calcium Lvl) 9.0 8.5-10.5 [facility] CenterNjvenhnMVOMRRXZJL4814-56-83 09:13:00 Test Item Value Reference Range Interpretation Comments Microcyte (test code = 1+ *ABN*(08/16/18 Microcyte) 4:13 AM) [facility] CenterGfxpedbZRERJWBKLU8314-64-80 09:13:00 Test Item Value Reference Range Interpretation Comments Neutrophils # (test code = Neutrophils 2.7 1.5-8.1 #) [facility] CenterGkpftjqETTYQSJQEQ6509-87-91 09:13:00 Test Item Value Reference Range Interpretation Comments Lymphocytes # (test code = Lymphocytes 1.3 1.0-5.5 #) [facility] CenterCwsfpgzHCZKNKJKVR4015-84-84 09:13:00 Test Item Value Reference Range Interpretation Comments Segs (test code = Segs) 56.2 45.0-75.0 [facility] CenterNxobdjyZZHNSZTMKC3212-57-08 09:13:00 Test Item Value Reference Range Interpretation Comments Monocytes # (test code 0.4 See_Comment [Aut omated message] The = Monocytes #) system which generated this result tra nsmitted reference range : <=0.8. The reference r ondina was not used to int erpret this result as normal/abnormal . [facility] CenterAzqkwrwSZZRZWZGJZ1977-38-10 09:13:00 Test Item Value Reference Range Interpretation Comments Lymphocytes (test code = Lymphocytes) 26.8 20.0-40.0 [facility] CenterCwwictqYVHLAPOGBR3298-00-57 09:13:00 Test Item Value Reference Range Interpretation Comments Monocytes (test code = Monocytes) 8.7 2.0-12.0 [facility] CenterHfkzijuOVKOOWHZVQ6025-23-09 09:13:00 Test Item Value Reference Range Interpretation Comments Basophils (test code = 2.1 See_Comment [Aut omated message] The Basophils) system which ge nerated this result tra nsmitted reference range : <=1.0. The reference r ondina was not used to int erpret this result as normal/abnormal . [facility] CenterHernghgQZTWWSMGSZ7597-48-95 09:13:00 Test Item Value Reference Range Interpretation Comments Eosinophils (test code = 6.2 See_Comment [A utomated message] The Eosinophils) system which ge nerated this result tra nsmitted reference range : <=4.0. The reference r ondina was not used to int erpret this result as normal/abnormal . [facility] CenterSkcnxdaQHDTDZIJOG8285-63-28 09:13:00 Test Item Value Reference Range Interpretation Comments Basophils # (test code 0.1 See_Comment [Aut omated message] The = Basophils #) system which generated this result tra nsmitted reference range : <=0.2. The reference r ondina was not used to int erpret this result as normal/abnormal . [facility] CenterJgqyiehUSOYTPMVSI3706-94-23 09:13:00 Test Item Value Reference Range Interpretation Comments Eosinophils # (test code 0.3 See_Comment [A utomated message] The = Eosinophils #) system whic h generated this result tra nsmitted reference range : <=0.5. The reference r ondina was not used to int erpret this result as normal/abnormal . [facility] CenterMijjacsRUJNTJXYVE5256-64-46 09:13:00 Test Item Value Reference Range Interpretation Comments MCV (test code = MCV) 77.7 80.0-94.0 [facility] CenterExewdnfAIRMOBRTCA4962-37-73 09:13:00 Test Item Value Reference Range Interpretation Comments Hgb (test code = Hgb) 10.5 14.0-18.0 [facility] CenterUmfabmgPNYXBIHREY3949-23-00 09:13:00 Test Item Value Reference Range Interpretation Comments Hct (test code = Hct) 33.2 42.0-54.0 [facility] CenterSqnprguUVUQYJUQHA7315-23-70 09:13:00 Test Item Value Reference Range Interpretation Comments WBC (test code = WBC) 4.7 3.7-10.4 [facility] CenterSvkujbiMKRJQRXVFT6644-20-16 09:13:00 Test Item Value Reference Range Interpretation Comments RBC (test code = RBC) 4.27 4.70-6.10 [facility] CenterUljrwfsJAHABCJLAQ2365-69-77 09:13:00 Test Item Value Reference Range Interpretation Comments MCH (test code = MCH) 24.5 pg 27.0-31.0 [facility] CenterGkjpmzwLQBSTCDDWO0734-13-60 09:13:00 Test Item Value Reference Range Interpretation Comments Platelet (test code = Platelet) 267 133-450 [facility] CenterOdlhuetUKJUKMSUUF8848-13-15 09:13:00 Test Item Value Reference Range Interpretation Comments MPV (test code = MPV) 7.8 7.4-10.4 [facility] CenterFliyuxjTMIAJUSKYI9151-00-32 09:13:00 Test Item Value Reference Range Interpretation Comments MCHC (test code = MCHC) 31.5 32.0-36.0 [facility] CenterRetyzknKPYDEMUQWE8238-42-70 09:13:00 Test Item Value Reference Range Interpretation Comments RDW (test code = RDW) 19.2 11.5-14.5 [facility]2019-06-14 09:13:00 Test Item Value Reference Range Interpretation Comments Bili Indirect Unable to See_Comment [Automated (test code = Bili Calculate message] T he system Indirect) which generated this result transmitted reference range : <=1.0. The reference range was not used to interpret this result as normal/abnormal . [facility]2019-06-14 09:13:00 Test Item Value Reference Range Interpretation Comments Bili Direct (test code no gt See_Comment [Aut omated message] The = Bili Direct) system which generated this result tra nsmitted reference range : <=0.3. The reference r ondina was not used to int erpret this result as cassie l/abnormal. [facility]2019-06-14 09:13:00 Test Item Value Reference Range Interpretation Comments Total Protein (test code = Total 6.9 6.4-8.4 Protein) [facility]2019-06-14 09:13:00 Test Item Value Reference Range Interpretation Comments Albumin Lvl (test code = Albumin Lvl) 3.0 3.5-5.0 [facility]2019-06-14 09:13:00 Test Item Value Reference Range Interpretation Comments Globulin (test code = Globulin) 3.9 2.7-4.2 [facility]2019-06-14 09:13:00 Test Item Value Reference Range Interpretation Comments Alk Phos (test code = Alk Phos) 214 39-136 [facility]2019-06-14 09:13:00 Test Item Value Reference Range Interpretation Comments Bili Total (test code = Bili Total) 0.3 0.2-1.3 [facility]2019-06-14 09:13:00 Test Item Value Reference Range Interpretation Comments AST (test code = AST) 207 See_Comment [Auto mated message] The system which ge nerated this result transmit garrett reference range : <=37. The reference range was not used to interpr et this result as cassie l/abnormal. [facility] ZXLAI1052-38-77 09:13:00 Test Item Value Reference Range Interpretation Comments A/G Ratio (test code = A/G Ratio) 0.8 1 0.7-1.6 [facility] GXQDU2265-27-47 09:13:00 Test Item Value Reference Range Interpretation Comments ALT (test code = ALT) 148 See_Comment [Auto mated message] The system which ge nerated this result transmit garrett reference range : <=65. The reference range was not used to interpr et this result as cassie l/abnormal. [facility]OjrfprjFXONNCLBIFUE4249-61-99 09:13:00 Test Item Value Reference Range Interpretation Comments AGAP (test code = AGAP) 11.2 10.0-20.0 [facility] MichiganHuyqbhuCSOHKUUWNMKY2322-88-79 09:13:00 Test Item Value Reference Range Interpretation Comments eGFR (test code = eGFR) 85 [facility] MichiganDsbdudaIEGCALJOASRB0498-21-84 09:13:00 Test Item Value Reference Range Interpretation Comments Creatinine Lvl (test code = Creatinine 0.96 0.50-1.40 Lvl) [facility] MichiganMdljlssYYIAZEKVMVCT1180-12-27 09:13:00 Test Item Value Reference Range Interpretation Comments Potassium Lvl (test code = Potassium 4.2 3.5-5.1 Lvl) [facility] MichiganOffghizDPIYYKTWCHIY3359-10-86 09:13:00 Test Item Value Reference Range Interpretation Comments Sodium Lvl (test code = Sodium Lvl) 141 135-145 [facility] MichiganChlxaaoDWSUBCZNUSRE1166-16-60 09:13:00 Test Item Value Reference Range Interpretation Comments Chloride Lvl (test code = Chloride Lvl) 110 95-109 [facility]KzpnbnbARULBGMHLYJQ3609-34-27 09:13:00 Test Item Value Reference Range Interpretation Comments CO2 (test code = CO2) 24 24-32 [facility] MichiganBzafqkaECFFNXVIEPDZ0747-18-33 09:13:00 Test Item Value Reference Range Interpretation Comments BUN (test code = BUN) 19 7-22 [facility] MichiganSunxrxdAIBPALRRVAYM7363-63-86 09:13:00 Test Item Value Reference Range Interpretation Comments Glucose Lvl (test code = Glucose Lvl) 86 70-99 [facility] MichiganSbqhzoiUKGXVARTDMUW1656-87-87 09:13:00 Test Item Value Reference Range Interpretation Comments Calcium Lvl (test code = Calcium Lvl) 9.0 8.5-10.5 [facility] CenterZkwvwysAYBZBUHJYI4610-89-35 09:13:00 Test Item Value Reference Range Interpretation Comments Microcyte (test code = 1+ *ABN*(08/16/18 Microcyte) 4:13 AM) [facility] CenterVlqfgjxISEQLEZGMP2425-48-63 09:13:00 Test Item Value Reference Range Interpretation Comments Neutrophils # (test code = Neutrophils 2.7 1.5-8.1 #) [facility] CenterNhjkuncYRYPUUFVWQ5723-82-31 09:13:00 Test Item Value Reference Range Interpretation Comments Lymphocytes # (test code = Lymphocytes 1.3 1.0-5.5 #) [facility] CenterSepsznjYCNTCELKNF6332-65-38 09:13:00 Test Item Value Reference Range Interpretation Comments Segs (test code = Segs) 56.2 45.0-75.0 [facility] CenterSuglftxRKCFOKMIGG4003-57-70 09:13:00 Test Item Value Reference Range Interpretation Comments Monocytes # (test code 0.4 See_Comment [Aut omated message] The = Monocytes #) system which generated this result tra nsmitted reference range : <=0.8. The reference r ondina was not used to int erpret this result as normal/abnormal . [facility] CenterQhctenhFUTAQLOJGX7343-78-85 09:13:00 Test Item Value Reference Range Interpretation Comments Lymphocytes (test code = Lymphocytes) 26.8 20.0-40.0 [facility] CenterDjebbzhLWDRIJNHGN3587-07-34 09:13:00 Test Item Value Reference Range Interpretation Comments Monocytes (test code = Monocytes) 8.7 2.0-12.0 [facility] CenterKqvxvvlWIIDYUOHCN8440-05-08 09:13:00 Test Item Value Reference Range Interpretation Comments Basophils (test code = 2.1 See_Comment [Aut omated message] The Basophils) system which ge nerated this result tra nsmitted reference range : <=1.0. The reference r ondina was not used to int erpret this result as normal/abnormal . [facility] CenterXfbybcbKOOWKEDRDO2844-41-25 09:13:00 Test Item Value Reference Range Interpretation Comments Eosinophils (test code = 6.2 See_Comment [A utomated message] The Eosinophils) system which ge nerated this result tra nsmitted reference range : <=4.0. The reference r ondina was not used to int erpret this result as normal/abnormal . [facility] CenterVycpnnvMKBDXPMPJM1400-00-67 09:13:00 Test Item Value Reference Range Interpretation Comments Basophils # (test code 0.1 See_Comment [Aut omated message] The = Basophils #) system which generated this result tra nsmitted reference range : <=0.2. The reference r ondina was not used to int erpret this result as normal/abnormal . [facility] CenterQcodqafFMCJKXRRIC1054-40-76 09:13:00 Test Item Value Reference Range Interpretation Comments Eosinophils # (test code 0.3 See_Comment [A utomated message] The = Eosinophils #) system whic h generated this result tra nsmitted reference range : <=0.5. The reference r ondina was not used to int erpret this result as normal/abnormal . [facility] CenterRldolbrLQTHCYMBRF3851-26-44 09:13:00 Test Item Value Reference Range Interpretation Comments MCV (test code = MCV) 77.7 80.0-94.0 [facility] CenterByvvwlrQGXPNJZHDP5893-90-35 09:13:00 Test Item Value Reference Range Interpretation Comments Hgb (test code = Hgb) 10.5 14.0-18.0 [facility] CenterMlbnaiyVTUSQRZUWB1529-92-76 09:13:00 Test Item Value Reference Range Interpretation Comments Hct (test code = Hct) 33.2 42.0-54.0 [facility] CenterJzuvroeGLLYGSBVCD1509-00-05 09:13:00 Test Item Value Reference Range Interpretation Comments WBC (test code = WBC) 4.7 3.7-10.4 [facility] CenterKjgyofbAFOJHSBJVG9131-18-56 09:13:00 Test Item Value Reference Range Interpretation Comments RBC (test code = RBC) 4.27 4.70-6.10 [facility] CenterGjvcewmANGCWVUUUQ1319-02-79 09:13:00 Test Item Value Reference Range Interpretation Comments MCH (test code = MCH) 24.5 pg 27.0-31.0 [facility] CenterFqrlcaaZAZHAJIYDK0230-41-24 09:13:00 Test Item Value Reference Range Interpretation Comments Platelet (test code = Platelet) 267 133-450 [facility] CenterMlyzraqDEXBRUKXTQ6491-76-52 09:13:00 Test Item Value Reference Range Interpretation Comments MPV (test code = MPV) 7.8 7.4-10.4 [facility] AevnpwhKZILFNDYNF1005-53-97 09:13:00 Test Item Value Reference Range Interpretation Comments MCHC (test code = MCHC) 31.5 32.0-36.0 [facility] EwsbiawYEYTMDZAAI4220-63-19 09:13:00 Test Item Value Reference Range Interpretation Comments RDW (test code = RDW) 19.2 11.5-14.5 [facility] HrfzhjkTJWPLLJXDE1649-23-16 02:46:00 Test Item Value Reference Range Interpretation Comments [facility] HIV 4th GEN (test Negative *NA*(08/15/18 code = CDC HIV 4th 9:46 PM) GEN) [facility] PsrwkcvVSBAFNJRPU2858-91-26 02:46:00 Test Item Value Reference Range Interpretation Comments [facility] HIV 4th GEN (test Negative *NA*(08/15/18 code = CDC HIV 4th 9:46 PM) GEN) [facility]GutcezkTQBOUBNSNM6991-73-48 02:46:00 Test Item Value Reference Range Interpretation Comments [facility] HIV 4th GEN (test Negative *NA*(08/15/18 code = CDC HIV 4th 9:46 PM) GEN) [facility] XsuknowQHKWNSKOEO5428-49-38 02:46:00 Test Item Value Reference Range Interpretation Comments [facility] HIV 4th GEN (test Negative *NA*(08/15/18 code = CDC HIV 4th 9:46 PM) GEN) [facility] ExadoykRITUVZNYMK1690-45-53 02:46:00 Test Item Value Reference Range Interpretation Comments [facility] HIV 4th GEN (test Negative *NA*(08/15/18 code = CDC HIV 4th 9:46 PM) GEN) [facility] DSI MET-TECH [id number] 02:44:00 Test Item Value Reference Range Interpretation Comments ABO/Rh (test code = ABO/Rh) A POS [facility] [employer] [place] [facility] [id number] 02:44:00 Test Item Value Reference Range Interpretation Comments Antibody Scrn (test Negative (08/15/18 9:44 code = Antibody Scrn) PM) [facility] [employer] [place] [facility] [id number] 02:44:00 Test Item Value Reference Range Interpretation Comments ABO/Rh (test code = ABO/Rh) A POS [employer] [facility] [id number] 02:44:00 Test Item Value Reference Range Interpretation Comments Antibody Scrn (test Negative (08/15/18 9:44 code = Antibody Scrn) PM) [facility] [place] [facility] [id number] 02:44:00 Test Item Value Reference Range Interpretation Comments ABO/Rh (test code = ABO/Rh) A POS [facility] [place] [facility] [id number] 02:44:00 Test Item Value Reference Range Interpretation Comments Antibody Scrn (test Negative (08/15/18 9:44 code = Antibody Scrn) PM) [facility] [place] [facility] [id number] 02:44:00 Test Item Value Reference Range Interpretation Comments ABO/Rh (test code = ABO/Rh) A POS [facility] [place] [facility] [id number] 02:44:00 Test Item Value Reference Range Interpretation Comments Antibody Scrn (test Negative (08/15/18 9:44 code = Antibody Scrn) PM) [facility] [place] [facility] [id number] 02:44:00 Test Item Value Reference Range Interpretation Comments ABO/Rh (test code = ABO/Rh) A POS [facility] [place] [facility] [id number] 02:44:00 Test Item Value Reference Range Interpretation Comments Antibody Scrn (test Negative (08/15/18 9:44 code = Antibody Scrn) PM) [facility] PhloronolCARDIAC [id number] 02:42:00 Test Item Value Reference Range Interpretation Comments Troponin-I (test code = Troponin-I) no gt <=0.40 [facility] [employer] [id number] 02:42:00 Test Item Value Reference Range Interpretation Comments Lipase Lvl (test code = Lipase Lvl) 165 73-393 [facility] [employer] [id number] 02:42:00 Test Item Value Reference Range Interpretation Comments Bili Indirect (test code = Bili 0.2 <=1.0 Indirect) [facility] [employer] [id number] 02:42:00 Test Item Value Reference Range Interpretation Comments Bili Total (test code = Bili Total) 0.3 0.2-1.3 [facility] [employer] [id number] 02:42:00 Test Item Value Reference Range Interpretation Comments Alk Phos (test code = Alk Phos) 203 39-136 [facility] [employer] [id number] 02:42:00 Test Item Value Reference Range Interpretation Comments AST (test code = AST) 194 <=37 [facility]2019-06-14 02:42:00 Test Item Value Reference Range Interpretation Comments ALT (test code = ALT) 109 <=65 [facility]2019-06-14 02:42:00 Test Item Value Reference Range Interpretation Comments Bili Direct (test code = Bili Direct) 0.[address]3 [facility]2019-06-14 02:42:00 Test Item Value Reference Range Interpretation Comments Albumin Lvl (test code = Albumin Lvl) 3.0 3.5-5.0 [facility]2019-06-14 02:42:00 Test Item Value Reference Range Interpretation Comments Total Protein (test code = Total 6.9 6.4-8.4 Protein) [facility]2019-06-14 02:42:00 Test Item Value Reference Range Interpretation Comments Globulin (test code = Globulin) 3.9 2.7-4.2 [facility]2019-06-14 02:42:00 Test Item Value Reference Range Interpretation Comments A/G Ratio (test code = A/G Ratio) 0.8 1 0.7-1.6 [facility]2019-06-14 02:42:00 Test Item Value Reference Range Interpretation Comments eGFR (test code = eGFR) 68 [facility]2019-06-14 02:42:00 Test Item Value Reference Range Interpretation Comments Potassium Lvl (test code = Potassium 3.9 3.5-5.1 Lvl) [facility]2019-06-14 02:42:00 Test Item Value Reference Range Interpretation Comments Sodium Lvl (test code = Sodium Lvl) 139 135-145 [facility]2019-06-14 02:42:00 Test Item Value Reference Range Interpretation Comments Calcium Lvl (test code = Calcium Lvl) 8.6 8.5-10.5 [facility]2019-06-14 02:42:00 Test Item Value Reference Range Interpretation Comments CO2 (test code = CO2) 25 24-32 [facility]2019-06-14 02:42:00 Test Item Value Reference Range Interpretation Comments Chloride Lvl (test code = Chloride Lvl) 105 95-109 [facility]2019-06-14 02:42:00 Test Item Value Reference Range Interpretation Comments Creatinine Lvl (test code = Creatinine 1.16 0.50-1.40 Lvl) [facility]2019-06-14 02:42:00 Test Item Value Reference Range Interpretation Comments BUN (test code = BUN) 21 7-22 [facility]2019-06-14 02:42:00 Test Item Value Reference Range Interpretation Comments Glucose Lvl (test code = Glucose Lvl) 88 70-99 [facility]2019-06-14 02:42:00 Test Item Value Reference Range Interpretation Comments AGAP (test code = AGAP) 12.9 10.0-20.0 [facility] CenterNmhyfomYYSAOZDFNW5901-54-54 02:42:00 Test Item Value Reference Range Interpretation Comments RDW (test code = RDW) 19.1 11.5-14.5 [facility] CenterBbtjpqyCOJFRWSUIU4332-96-85 02:42:00 Test Item Value Reference Range Interpretation Comments MPV (test code = MPV) 8.0 7.4-10.4 [facility] CenterYlvjazzIIIPNBOSQQ6584-99-10 02:42:00 Test Item Value Reference Range Interpretation Comments Platelet (test code = Platelet) 259 133-450 [facility] CenterEylefzbACZPFJQYSV0355-23-60 02:42:00 Test Item Value Reference Range Interpretation Comments MCHC (test code = MCHC) 31.2 32.0-36.0 [facility] CenterFypornpOBFRXQEYFR1465-89-32 02:42:00 Test Item Value Reference Range Interpretation Comments Hct (test code = Hct) 33.3 42.0-54.0 [facility] CenterFlxptvsHUSNYULBCD4154-31-24 02:42:00 Test Item Value Reference Range Interpretation Comments Hgb (test code = Hgb) 10.4 14.0-18.0 [facility] CenterBcirgqiBNBUVQDYWL7596-86-95 02:42:00 Test Item Value Reference Range Interpretation Comments RBC (test code = RBC) 4.26 4.70-6.10 [facility] CenterUkvftwrQSZIIARACG7592-89-74 02:42:00 Test Item Value Reference Range Interpretation Comments MCV (test code = MCV) 78.2 80.0-94.0 [facility] CenterOlsmvkaXEZFULCATI6241-19-77 02:42:00 Test Item Value Reference Range Interpretation Comments MCH (test code = MCH) 24.4 pg 27.0-31.0 [facility] CenterXcoeafeUBKWMBJDBQ6200-49-37 02:42:00 Test Item Value Reference Range Interpretation Comments WBC (test code = WBC) 6.0 3.7-10.4 [facility] CenterBziioncJCBRLLEECC7510-38-22 02:42:00 Test Item Value Reference Range Interpretation Comments Neutrophils # (test code = Neutrophils 4.0 1.5-8.1 #) [facility] CenterRebelroCSWLQGZFWI8182-76-66 02:42:00 Test Item Value Reference Range Interpretation Comments Lymphocytes # (test code = Lymphocytes 1.3 1.0-5.5 #) [facility] CenterRwgsyunROJOIONCVV9778-08-13 02:42:00 Test Item Value Reference Range Interpretation Comments Basophils (test code = Basophils) 1.4 <=1.0 [facility] CenterNwgdhahUOISSMYLZH4126-65-08 02:42:00 Test Item Value Reference Range Interpretation Comments Eosinophils (test code = Eosinophils) 3.5 <=4.0 [facility] CenterLimmoqtARIWYMQOGK4984-31-96 02:42:00 Test Item Value Reference Range Interpretation Comments Lymphocytes (test code = Lymphocytes) 21.4 20.0-40.0 [facility] CenterGsyaqmtCHNNAKOSSY4779-31-68 02:42:00 Test Item Value Reference Range Interpretation Comments Monocytes (test code = Monocytes) 7.3 2.0-12.0 [facility] CenterNhssjfjOTGFLHZJGH3802-72-61 02:42:00 Test Item Value Reference Range Interpretation Comments Basophils # (test code = Basophils #) 0.1 <=0.2 [facility] CenterSubbeesHKQENHXUSG8726-96-25 02:42:00 Test Item Value Reference Range Interpretation Comments Microcyte (test code = 1+ *ABN*(08/15/18 Microcyte) 9:42 PM) [facility] CenterPjpmhlcTRELJPVKDT2506-32-88 02:42:00 Test Item Value Reference Range Interpretation Comments Monocytes # (test code = Monocytes #) 0.4 <=0.8 [facility] CenterKxcexaiRGSBYWLIQN2938-89-70 02:42:00 Test Item Value Reference Range Interpretation Comments Eosinophils # (test code = Eosinophils 0.2 <=0.5 #) [facility] CenterMqfavokYFURUXEDLA0896-69-77 02:42:00 Test Item Value Reference Range Interpretation Comments Segs (test code = Segs) 66.4 45.0-75.0 [facility]ul[facility]haTVNREQCNYE0533-91-52 02:42:00 Test Item Value Reference Range Interpretation Comments PT (test code = PT) 13.5 s 12.0-14.7 [facility]IzecxxtVNBQUIIBGE5390-60-06 02:42:00 Test Item Value Reference Range Interpretation Comments PTT (test code = PTT) 28.8 s 22.9-35.8 [facility]ZyzhlhqTQUYUIJQSA2864-58-54 02:42:00 Test Item Value Reference Range Interpretation Comments INR (test code = INR) 1.05 1 0.85-1.17 [facility] [id number] 02:42:00 Test Item Value Reference Range Interpretation Comments Troponin-I (test code no gt See_Comment [Auto mated message] The = Troponin-I) system which g enerated this result transmit garrett reference range : <=0.40. The reference r ondina was not used to interpr et this result as cassie l/abnormal. [facility] MQWNX1382-14-91 02:42:00 Test Item Value Reference Range Interpretation Comments Lipase Lvl (test code = Lipase Lvl) 165 73-393 [facility] HospitalSynt[facility] Medical FAJBH4684-62-05 02:42:00 Test Item Value Reference Range Interpretation Comments Bili Indirect (test 0.2 See_Comment [Automa garrett message] The code = Bili Indirect) system which generated this result tra nsmitted reference range : <=1.0. The reference r ondina was not used to int erpret this result as normal/abnormal . [facility] [id number] 02:42:00 Test Item Value Reference Range Interpretation Comments Bili Total (test code = Bili Total) 0.3 0.2-1.3 [facility]2019-06-14 02:42:00 Test Item Value Reference Range Interpretation Comments Alk Phos (test code = Alk Phos) 203 39-136 [facility] [id number] 02:42:00 Test Item Value Reference Range Interpretation Comments AST (test code = AST) 194 See_Comment [Auto mated message] The system which ge nerated this result transmit garrett reference range : <=37. The reference range was not used to interpr et this result as cassie l/abnormal. [facility] [id number] 02:42:00 Test Item Value Reference Range Interpretation Comments ALT (test code = ALT) 109 See_Comment [Auto mated message] The system which ge nerated this result transmit garrett reference range : <=65. The reference range was not used to interpr et this result as cassie l/abnormal. [facility]2019-06-14 02:42:00 Test Item Value Reference Range Interpretation Comments Bili Direct (test code 0.1 See_Comment [Aut omated message] The = Bili Direct) system which generated this result tra nsmitted reference range : <=0.3. The reference r ondina was not used to int erpret this result as cassie l/abnormal. [facility]2019-06-14 02:42:00 Test Item Value Reference Range Interpretation Comments Albumin Lvl (test code = Albumin Lvl) 3.0 3.5-5.0 [facility]2019-06-14 02:42:00 Test Item Value Reference Range Interpretation Comments Total Protein (test code = Total 6.9 6.4-8.4 Protein) [facility]2019-06-14 02:42:00 Test Item Value Reference Range Interpretation Comments Globulin (test code = Globulin) 3.9 2.7-4.2 [facility]2019-06-14 02:42:00 Test Item Value Reference Range Interpretation Comments A/G Ratio (test code = A/G Ratio) 0.8 1 0.7-1.6 [facility]2019-06-14 02:42:00 Test Item Value Reference Range Interpretation Comments eGFR (test code = eGFR) 68 [facility]2019-06-14 02:42:00 Test Item Value Reference Range Interpretation Comments Potassium Lvl (test code = Potassium 3.9 3.5-5.1 Lvl) [facility]2019-06-14 02:42:00 Test Item Value Reference Range Interpretation Comments Sodium Lvl (test code = Sodium Lvl) 139 135-145 [facility]2019-06-14 02:42:00 Test Item Value Reference Range Interpretation Comments Calcium Lvl (test code = Calcium Lvl) 8.6 8.5-10.5 [facility]2019-06-14 02:42:00 Test Item Value Reference Range Interpretation Comments CO2 (test code = CO2) 25 24-32 [facility]2019-06-14 02:42:00 Test Item Value Reference Range Interpretation Comments Chloride Lvl (test code = Chloride Lvl) 105 95-109 [facility]2019-06-14 02:42:00 Test Item Value Reference Range Interpretation Comments Creatinine Lvl (test code = Creatinine 1.16 0.50-1.40 Lvl) [facility]2019-06-14 02:42:00 Test Item Value Reference Range Interpretation Comments BUN (test code = BUN) 21 7-22 [facility]2019-06-14 02:42:00 Test Item Value Reference Range Interpretation Comments Glucose Lvl (test code = Glucose Lvl) 88 70-99 [facility]2019-06-14 02:42:00 Test Item Value Reference Range Interpretation Comments AGAP (test code = AGAP) 12.9 10.0-20.0 [facility] CenterMvgfmsaVXMVLZCTLQ3585-14-95 02:42:00 Test Item Value Reference Range Interpretation Comments RDW (test code = RDW) 19.1 11.5-14.5 [facility] CenterGltyfrsCBXJJRIRSS7374-34-52 02:42:00 Test Item Value Reference Range Interpretation Comments MPV (test code = MPV) 8.0 7.4-10.4 [facility] CenterKcoerrcXEARLNFQHS5651-16-62 02:42:00 Test Item Value Reference Range Interpretation Comments Platelet (test code = Platelet) 259 133-450 [facility] CenterWnejjcoITJTMBNGOO9276-51-12 02:42:00 Test Item Value Reference Range Interpretation Comments MCHC (test code = MCHC) 31.2 32.0-36.0 [facility] CenterEkiylhoSELWCABOVS2577-08-31 02:42:00 Test Item Value Reference Range Interpretation Comments Hct (test code = Hct) 33.3 42.0-54.0 [facility] CenterWuqvyvjEFSKAHVJVR2080-97-42 02:42:00 Test Item Value Reference Range Interpretation Comments Hgb (test code = Hgb) 10.4 14.0-18.0 [facility] CenterZfinimuPWGMWSPFJO7594-99-74 02:42:00 Test Item Value Reference Range Interpretation Comments RBC (test code = RBC) 4.26 4.70-6.10 [facility] CenterGcoyoybVCDZBKDJSV7799-45-06 02:42:00 Test Item Value Reference Range Interpretation Comments MCV (test code = MCV) 78.2 80.0-94.0 [facility] CenterJgqjmghHKIZRYCGWD6835-52-86 02:42:00 Test Item Value Reference Range Interpretation Comments MCH (test code = MCH) 24.4 pg 27.0-31.0 [facility] CenterYwzhthwEHGYYJOCNT6704-22-78 02:42:00 Test Item Value Reference Range Interpretation Comments WBC (test code = WBC) 6.0 3.7-10.4 [facility] CenterKihlulzWCOCXDTDEZ4633-09-80 02:42:00 Test Item Value Reference Range Interpretation Comments Neutrophils # (test code = Neutrophils 4.0 1.5-8.1 #) [facility] CenterMxvermeDXLKQCJIBS8004-53-02 02:42:00 Test Item Value Reference Range Interpretation Comments Lymphocytes # (test code = Lymphocytes 1.3 1.0-5.5 #) [facility] CenterYxvopkmXWQAQFNZKP2313-48-26 02:42:00 Test Item Value Reference Range Interpretation Comments Basophils (test code = 1.4 See_Comment [Aut omated message] The Basophils) system which ge nerated this result tra nsmitted reference range : <=1.0. The reference r ondina was not used to int erpret this result as normal/abnormal . [facility] CenterIdvuvihPNIYJRNQMN4276-27-92 02:42:00 Test Item Value Reference Range Interpretation Comments Eosinophils (test code = 3.5 See_Comment [A utomated message] The Eosinophils) system which ge nerated this result tra nsmitted reference range : <=4.0. The reference r ondina was not used to int erpret this result as normal/abnormal . [facility] CenterQsjxzziAHEKWCEFQB1812-77-87 02:42:00 Test Item Value Reference Range Interpretation Comments Lymphocytes (test code = Lymphocytes) 21.4 20.0-40.0 [facility] CenterLqxdxydMOBHRMJYCT9589-52-70 02:42:00 Test Item Value Reference Range Interpretation Comments Monocytes (test code = Monocytes) 7.3 2.0-12.0 [facility] CenterLvutajfQABTHTVNXA9886-89-56 02:42:00 Test Item Value Reference Range Interpretation Comments Basophils # (test code 0.1 See_Comment [Aut omated message] The = Basophils #) system which generated this result tra nsmitted reference range : <=0.2. The reference r ondina was not used to int erpret this result as normal/abnormal . [facility] CenterOfezmcoZYPPHZQNEC1539-88-59 02:42:00 Test Item Value Reference Range Interpretation Comments Microcyte (test code = 1+ *ABN*(08/15/18 Microcyte) 9:42 PM) [facility] CenterVndayfzBNYQFOZROS7913-32-35 02:42:00 Test Item Value Reference Range Interpretation Comments Monocytes # (test code 0.4 See_Comment [Aut omated message] The = Monocytes #) system which generated this result tra nsmitted reference range : <=0.8. The reference r ondina was not used to int erpret this result as normal/abnormal . [facility] CenterJwkenpqTGHQMBTQRO0289-65-26 02:42:00 Test Item Value Reference Range Interpretation Comments Eosinophils # (test code 0.2 See_Comment [A utomated message] The = Eosinophils #) system whic h generated this result tra nsmitted reference range : <=0.5. The reference r ondina was not used to int erpret this result as normal/abnormal . [facility] CenterNqrhruwDYBQEYLCOJ9254-04-05 02:42:00 Test Item Value Reference Range Interpretation Comments Segs (test code = Segs) 66.4 45.0-75.0 [facility] CenterTkykabaNNESPRHWBR4764-06-58 02:42:00 Test Item Value Reference Range Interpretation Comments PT (test code = PT) 13.5 s 12.0-14.7 [facility] CenterTqqcwdaXAKQHKUTRE2604-19-25 02:42:00 Test Item Value Reference Range Interpretation Comments PTT (test code = PTT) 28.8 s 22.9-35.8 [facility] CenterPfkuwlmMDQUENFUUA5433-09-64 02:42:00 Test Item Value Reference Range Interpretation Comments INR (test code = INR) 1.05 1 0.85-1.17 [facility] [id number] 02:42:00 Test Item Value Reference Range Interpretation Comments Troponin-I (test code no gt See_Comment [Auto mated message] The = Troponin-I) system which g enerated this result transmit garrett reference range : <=0.40. The reference r ondina was not used to interpr et this result as cassie l/abnormal. [facility] HospitalCHEM [id number] 02:42:00 Test Item Value Reference Range Interpretation Comments Lipase Lvl (test code = Lipase Lvl) 165 73-393 [facility]2019-06-14 02:42:00 Test Item Value Reference Range Interpretation Comments Bili Indirect (test 0.2 See_Comment [Automa garrett message] The code = Bili Indirect) system which generated this result tra nsmitted reference range : <=1.0. The reference r ondina was not used to int erpret this result as normal/abnormal . [facility]2019-06-14 02:42:00 Test Item Value Reference Range Interpretation Comments Bili Total (test code = Bili Total) 0.3 0.2-1.3 [facility]2019-06-14 02:42:00 Test Item Value Reference Range Interpretation Comments Alk Phos (test code = Alk Phos) 203 39-136 [facility]2019-06-14 02:42:00 Test Item Value Reference Range Interpretation Comments AST (test code = AST) 194 See_Comment [Auto mated message] The system which ge nerated this result transmit garrett reference range : <=37. The reference range was not used to interpr et this result as cassie l/abnormal. [facility]2019-06-14 02:42:00 Test Item Value Reference Range Interpretation Comments ALT (test code = ALT) 109 See_Comment [Auto mated message] The system which ge nerated this result transmit garrett reference range : <=65. The reference range was not used to interpr et this result as cassie l/abnormal. [facility]2019-06-14 02:42:00 Test Item Value Reference Range Interpretation Comments Bili Direct (test code 0.1 See_Comment [Aut omated message] The = Bili Direct) system which generated this result tra nsmitted reference range : <=0.3. The reference r ondina was not used to int erpret this result as cassie l/abnormal. [facility]2019-06-14 02:42:00 Test Item Value Reference Range Interpretation Comments Albumin Lvl (test code = Albumin Lvl) 3.0 3.5-5.0 [facility]2019-06-14 02:42:00 Test Item Value Reference Range Interpretation Comments Total Protein (test code = Total 6.9 6.4-8.4 Protein) [facility]2019-06-14 02:42:00 Test Item Value Reference Range Interpretation Comments Globulin (test code = Globulin) 3.9 2.7-4.2 [facility]2019-06-14 02:42:00 Test Item Value Reference Range Interpretation Comments A/G Ratio (test code = A/G Ratio) 0.8 1 0.7-1.6 [facility]2019-06-14 02:42:00 Test Item Value Reference Range Interpretation Comments eGFR (test code = eGFR) 68 [facility]2019-06-14 02:42:00 Test Item Value Reference Range Interpretation Comments Potassium Lvl (test code = Potassium 3.9 3.5-5.1 Lvl) [facility]2019-06-14 02:42:00 Test Item Value Reference Range Interpretation Comments Sodium Lvl (test code = Sodium Lvl) 139 135-145 [facility]2019-06-14 02:42:00 Test Item Value Reference Range Interpretation Comments Calcium Lvl (test code = Calcium Lvl) 8.6 8.5-10.5 [facility]2019-06-14 02:42:00 Test Item Value Reference Range Interpretation Comments CO2 (test code = CO2) 25 24-32 [facility]2019-06-14 02:42:00 Test Item Value Reference Range Interpretation Comments Chloride Lvl (test code = Chloride Lvl) 105 95-109 [facility]2019-06-14 02:42:00 Test Item Value Reference Range Interpretation Comments Creatinine Lvl (test code = Creatinine 1.16 0.50-1.40 Lvl) [facility]2019-06-14 02:42:00 Test Item Value Reference Range Interpretation Comments BUN (test code = BUN) 21 7-22 [facility]2019-06-14 02:42:00 Test Item Value Reference Range Interpretation Comments Glucose Lvl (test code = Glucose Lvl) 88 70-99 [facility]2019-06-14 02:42:00 Test Item Value Reference Range Interpretation Comments AGAP (test code = AGAP) 12.9 10.0-20.0 [facility] CenterIpavooaHASECGPXHO0107-38-66 02:42:00 Test Item Value Reference Range Interpretation Comments RDW (test code = RDW) 19.1 11.5-14.5 [facility] CenterFmrhgakVACMLGNSIP9557-09-53 02:42:00 Test Item Value Reference Range Interpretation Comments MPV (test code = MPV) 8.0 7.4-10.4 [facility] CenterIlcdcmiSECARXXOWM6991-99-20 02:42:00 Test Item Value Reference Range Interpretation Comments Platelet (test code = Platelet) 259 133-450 [facility] CenterTcrcsetWRGKFJBFOS7475-21-47 02:42:00 Test Item Value Reference Range Interpretation Comments MCHC (test code = MCHC) 31.2 32.0-36.0 [facility] CenterUkrsgwoWUECDSZMQY0349-07-33 02:42:00 Test Item Value Reference Range Interpretation Comments Hct (test code = Hct) 33.3 42.0-54.0 [facility] CenterDbfnsufMFGLFDFNGE0951-09-09 02:42:00 Test Item Value Reference Range Interpretation Comments Hgb (test code = Hgb) 10.4 14.0-18.0 [facility] CenterTinnnjmIDKCYDXYJG2229-08-98 02:42:00 Test Item Value Reference Range Interpretation Comments RBC (test code = RBC) 4.26 4.70-6.10 [facility] CenterIhugpxuZMGELPTZLT6778-64-51 02:42:00 Test Item Value Reference Range Interpretation Comments MCV (test code = MCV) 78.2 80.0-94.0 [facility] CenterEdjltkaGPOFXHPSZQ2209-97-74 02:42:00 Test Item Value Reference Range Interpretation Comments MCH (test code = MCH) 24.4 pg 27.0-31.0 [facility] CenterIkslefzRKMMIHMOZQ5214-42-38 02:42:00 Test Item Value Reference Range Interpretation Comments WBC (test code = WBC) 6.0 3.7-10.4 [facility] CenterXfbvaraWSBBILMQGU3659-18-76 02:42:00 Test Item Value Reference Range Interpretation Comments Neutrophils # (test code = Neutrophils 4.0 1.5-8.1 #) [facility] CenterBvxfqguQKTBAWTDGC8659-47-42 02:42:00 Test Item Value Reference Range Interpretation Comments Lymphocytes # (test code = Lymphocytes 1.3 1.0-5.5 #) [facility] CenterTdbuupkZJITPONNQD0527-44-86 02:42:00 Test Item Value Reference Range Interpretation Comments Basophils (test code = 1.4 See_Comment [Aut omated message] The Basophils) system which ge nerated this result tra nsmitted reference range : <=1.0. The reference r ondina was not used to int erpret this result as normal/abnormal . [facility] CenterMozboofHMTDKZIJTJ4339-73-74 02:42:00 Test Item Value Reference Range Interpretation Comments Eosinophils (test code = 3.5 See_Comment [A utomated message] The Eosinophils) system which ge nerated this result tra nsmitted reference range : <=4.0. The reference r ondina was not used to int erpret this result as normal/abnormal . [facility] CenterTzmtxydFNJZJFZSMY8500-76-52 02:42:00 Test Item Value Reference Range Interpretation Comments Lymphocytes (test code = Lymphocytes) 21.4 20.0-40.0 [facility] CenterRnlrglgROIJSZMXXC3812-74-17 02:42:00 Test Item Value Reference Range Interpretation Comments Monocytes (test code = Monocytes) 7.3 2.0-12.0 [facility] CenterMlmziftOZIUQPJNSJ2704-58-00 02:42:00 Test Item Value Reference Range Interpretation Comments Basophils # (test code 0.1 See_Comment [Aut omated message] The = Basophils #) system which generated this result tra nsmitted reference range : <=0.2. The reference r ondina was not used to int erpret this result as normal/abnormal . [facility] CenterXmgizddWWBHHHZDLN6543-97-82 02:42:00 Test Item Value Reference Range Interpretation Comments Microcyte (test code = 1+ *ABN*(08/15/18 Microcyte) 9:42 PM) [facility] CenterXxclacfBAEQHLJPTX8471-36-40 02:42:00 Test Item Value Reference Range Interpretation Comments Monocytes # (test code 0.4 See_Comment [Aut omated message] The = Monocytes #) system which generated this result tra nsmitted reference range : <=0.8. The reference r ondina was not used to int erpret this result as normal/abnormal . [facility] CenterYenqroqJILEDMWIMZ5485-19-08 02:42:00 Test Item Value Reference Range Interpretation Comments Eosinophils # (test code 0.2 See_Comment [A utomated message] The = Eosinophils #) system whic h generated this result tra nsmitted reference range : <=0.5. The reference r ondina was not used to int erpret this result as normal/abnormal . [facility]MvkjcefFBHXVWPQZU1881-86-77 02:42:00 Test Item Value Reference Range Interpretation Comments Segs (test code = Segs) 66.4 45.0-75.0 [facility]SrvlsanBFIKHBDERL7891-55-03 02:42:00 Test Item Value Reference Range Interpretation Comments PT (test code = PT) 13.5 s 12.0-14.7 [facility]RbsdlxyPJRDSPEPSL0653-49-48 02:42:00 Test Item Value Reference Range Interpretation Comments PTT (test code = PTT) 28.8 s 22.9-35.8 [facility] MichiganLqqgppzWLYNEVHCOC9259-07-25 02:42:00 Test Item Value Reference Range Interpretation Comments INR (test code = INR) 1.05 1 0.85-1.17 [facility] HospitalCARDI [id number] 02:42:00 Test Item Value Reference Range Interpretation Comments Troponin-I (test code no gt See_Comment [Auto mated message] The = Troponin-I) system which g enerated this result transmit garrett reference range : <=0.40. The reference r ondina was not used to interpr et this result as cassie l/abnormal. [facility] [id number] 02:42:00 Test Item Value Reference Range Interpretation Comments Lipase Lvl (test code = Lipase Lvl) 165 73-393 [facility] HospitalSyntilla Medical [id number] 02:42:00 Test Item Value Reference Range Interpretation Comments Bili Indirect (test 0.2 See_Comment [Automa garrett message] The code = Bili Indirect) system which generated this result tra nsmitted reference range : <=1.0. The reference r ondina was not used to int erpret this result as normal/abnormal . [facility] [id number] 02:42:00 Test Item Value Reference Range Interpretation Comments Bili Total (test code = Bili Total) 0.3 0.2-1.3 [facility] HospitalSynt[facility] [id number] 02:42:00 Test Item Value Reference Range Interpretation Comments Alk Phos (test code = Alk Phos) 203 39-136 [facility] [id number] 02:42:00 Test Item Value Reference Range Interpretation Comments AST (test code = AST) 194 See_Comment [Auto mated message] The system which ge nerated this result transmit garrett reference range : <=37. The reference range was not used to interpr et this result as cassie l/abnormal. [facility]2019-06-14 02:42:00 Test Item Value Reference Range Interpretation Comments ALT (test code = ALT) 109 See_Comment [Auto mated message] The system which ge nerated this result transmit garrett reference range : <=65. The reference range was not used to interpr et this result as cassie l/abnormal. [facility]2019-06-14 02:42:00 Test Item Value Reference Range Interpretation Comments Bili Direct (test code 0.1 See_Comment [Aut omated message] The = Bili Direct) system which generated this result tra nsmitted reference range : <=0.3. The reference r ondina was not used to int erpret this result as cassie l/abnormal. [facility]2019-06-14 02:42:00 Test Item Value Reference Range Interpretation Comments Albumin Lvl (test code = Albumin Lvl) 3.0 3.5-5.0 [facility]2019-06-14 02:42:00 Test Item Value Reference Range Interpretation Comments Total Protein (test code = Total 6.9 6.4-8.4 Protein) [facility]2019-06-14 02:42:00 Test Item Value Reference Range Interpretation Comments Globulin (test code = Globulin) 3.9 2.7-4.2 [facility]2019-06-14 02:42:00 Test Item Value Reference Range Interpretation Comments A/G Ratio (test code = A/G Ratio) 0.8 1 0.7-1.6 [facility]2019-06-14 02:42:00 Test Item Value Reference Range Interpretation Comments eGFR (test code = eGFR) 68 [facility]2019-06-14 02:42:00 Test Item Value Reference Range Interpretation Comments Potassium Lvl (test code = Potassium 3.9 3.5-5.1 Lvl) [place]249-06-14 02:42:00 Test Item Value Reference Range Interpretation Comments Sodium Lvl (test code = Sodium Lvl) 139 135-145 [facility]2019-06-14 02:42:00 Test Item Value Reference Range Interpretation Comments Calcium Lvl (test code = Calcium Lvl) 8.6 8.5-10.5 [facility]2019-06-14 02:42:00 Test Item Value Reference Range Interpretation Comments CO2 (test code = CO2) 25 24-32 [facility]2019-06-14 02:42:00 Test Item Value Reference Range Interpretation Comments Chloride Lvl (test code = Chloride Lvl) 105 95-109 [facility]2019-06-14 02:42:00 Test Item Value Reference Range Interpretation Comments Creatinine Lvl (test code = Creatinine 1.16 0.50-1.40 Lvl) [facility]2019-06-14 02:42:00 Test Item Value Reference Range Interpretation Comments BUN (test code = BUN) 21 7-22 [facility]2019-06-14 02:42:00 Test Item Value Reference Range Interpretation Comments Glucose Lvl (test code = Glucose Lvl) 88 70-99 [facility]2019-06-14 02:42:00 Test Item Value Reference Range Interpretation Comments AGAP (test code = AGAP) 12.9 10.0-20.0 [facility] CenterGvgqcrtXOWXIWRXCE4254-51-09 02:42:00 Test Item Value Reference Range Interpretation Comments RDW (test code = RDW) 19.1 11.5-14.5 [facility] CenterYnwccnuQBNJDFIDMK4989-95-30 02:42:00 Test Item Value Reference Range Interpretation Comments MPV (test code = MPV) 8.0 7.4-10.4 [facility] CenterIogpgrqORXAEKNQMD9524-11-52 02:42:00 Test Item Value Reference Range Interpretation Comments Platelet (test code = Platelet) 259 133-450 [facility] CenterAnyukhgHSWICBPYPH1256-28-42 02:42:00 Test Item Value Reference Range Interpretation Comments MCHC (test code = MCHC) 31.2 32.0-36.0 [facility] CenterBjawojdIIWKAADALE6997-91-30 02:42:00 Test Item Value Reference Range Interpretation Comments Hct (test code = Hct) 33.3 42.0-54.0 [facility] CenterIgijmkjCZXJKPKNRY2377-52-42 02:42:00 Test Item Value Reference Range Interpretation Comments Hgb (test code = Hgb) 10.4 14.0-18.0 [facility] CenterImaxzuhEWQAOHTSHY0787-76-86 02:42:00 Test Item Value Reference Range Interpretation Comments RBC (test code = RBC) 4.26 4.70-6.10 [facility] CenterKsulrvtVGEZNAVIVX6325-18-71 02:42:00 Test Item Value Reference Range Interpretation Comments MCV (test code = MCV) 78.2 80.0-94.0 [facility] CenterPjkydqjHTPSBAMSSR5561-92-96 02:42:00 Test Item Value Reference Range Interpretation Comments MCH (test code = MCH) 24.4 pg 27.0-31.0 [facility] CenterOzvxqfwZMBLUCREJE3640-66-82 02:42:00 Test Item Value Reference Range Interpretation Comments WBC (test code = WBC) 6.0 3.7-10.4 [facility] CenterQbkcjakWMWEENOMGZ7879-36-18 02:42:00 Test Item Value Reference Range Interpretation Comments Neutrophils # (test code = Neutrophils 4.0 1.5-8.1 #) [facility] CenterGyziyeeEMXMYZJTTU8326-28-16 02:42:00 Test Item Value Reference Range Interpretation Comments Lymphocytes # (test code = Lymphocytes 1.3 1.0-5.5 #) [facility] CenterIwodhrqHGHGGJXJQK3306-80-71 02:42:00 Test Item Value Reference Range Interpretation Comments Basophils (test code = 1.4 See_Comment [Aut omated message] The Basophils) system which ge nerated this result tra nsmitted reference range : <=1.0. The reference r ondina was not used to int erpret this result as normal/abnormal . [facility] CenterEmjubaqYQWXIAAXST6428-35-88 02:42:00 Test Item Value Reference Range Interpretation Comments Eosinophils (test code = 3.5 See_Comment [A utomated message] The Eosinophils) system which ge nerated this result tra nsmitted reference range : <=4.0. The reference r ondina was not used to int erpret this result as normal/abnormal . [facility] CenterJfntihbCWBKKAZBMD6337-41-28 02:42:00 Test Item Value Reference Range Interpretation Comments Lymphocytes (test code = Lymphocytes) 21.4 20.0-40.0 [facility] CenterObxyuwwXPBWCYNPNN4590-92-13 02:42:00 Test Item Value Reference Range Interpretation Comments Monocytes (test code = Monocytes) 7.3 2.0-12.0 [facility] CenterOgzyjneLEAGSWHTOH2587-59-98 02:42:00 Test Item Value Reference Range Interpretation Comments Basophils # (test code 0.1 See_Comment [Aut omated message] The = Basophils #) system which generated this result tra nsmitted reference range : <=0.2. The reference r ondina was not used to int erpret this result as normal/abnormal . [facility] CenterHknvczhNPTQQPTGNR3166-10-78 02:42:00 Test Item Value Reference Range Interpretation Comments Microcyte (test code = 1+ *ABN*(08/15/18 Microcyte) 9:42 PM) [facility] CenterFqlcwskXTATGOMAMA4703-46-99 02:42:00 Test Item Value Reference Range Interpretation Comments Monocytes # (test code 0.4 See_Comment [Aut omated message] The = Monocytes #) system which generated this result tra nsmitted reference range : <=0.8. The reference r ondina was not used to int erpret this result as normal/abnormal . [facility] CenterSetqtfdHEROWLYTUN1598-33-06 02:42:00 Test Item Value Reference Range Interpretation Comments Eosinophils # (test code 0.2 See_Comment [A utomated message] The = Eosinophils #) system whic h generated this result tra nsmitted reference range : <=0.5. The reference r ondina was not used to int erpret this result as normal/abnormal . [facility] CenterBuhyezvNAQNRSVKLC4836-91-24 02:42:00 Test Item Value Reference Range Interpretation Comments Segs (test code = Segs) 66.4 45.0-75.0 [facility] CenterQhwxdbuCTQXAFVBCW8039-16-76 02:42:00 Test Item Value Reference Range Interpretation Comments PT (test code = PT) 13.5 s 12.0-14.7 [facility] HospitalJdtrbszZAOHBLKKGR8520-06-26 02:42:00 Test Item Value Reference Range Interpretation Comments PTT (test code = PTT) 28.8 s 22.9-35.8 [facility]OernrxzCTNJOWJLXF1763-63-60 02:42:00 Test Item Value Reference Range Interpretation Comments INR (test code = INR) 1.05 1 0.85-1.17 [facility] HospitalCARD[facility] [id number] 02:42:00 Test Item Value Reference Range Interpretation Comments Troponin-I (test code no gt See_Comment [Auto mated message] The = Troponin-I) system which g enerated this result transmit garrett reference range : <=0.40. The reference r ondina was not used to interpr et this result as cassie l/abnormal. [facility]2019-06-14 02:42:00 Test Item Value Reference Range Interpretation Comments Lipase Lvl (test code = Lipase Lvl) 165 73-393 [facility]2019-06-14 02:42:00 Test Item Value Reference Range Interpretation Comments Bili Indirect (test 0.2 See_Comment [Automa garrett message] The code = Bili Indirect) system which generated this result tra nsmitted reference range : <=1.0. The reference r ondina was not used to int erpret this result as normal/abnormal . [facility]2019-06-14 02:42:00 Test Item Value Reference Range Interpretation Comments Bili Total (test code = Bili Total) 0.3 0.2-1.3 [facility]2019-06-14 02:42:00 Test Item Value Reference Range Interpretation Comments Alk Phos (test code = Alk Phos) 203 39-136 [facility]2019-06-14 02:42:00 Test Item Value Reference Range Interpretation Comments AST (test code = AST) 194 See_Comment [Auto mated message] The system which ge nerated this result transmit garrett reference range : <=37. The reference range was not used to interpr et this result as cassie l/abnormal. [place] 416249-06-14 02:42:00 Test Item Value Reference Range Interpretation Comments ALT (test code = ALT) 109 See_Comment [Auto mated message] The system which ge nerated this result transmit garrett reference range : <=65. The reference range was not used to interpr et this result as cassie l/abnormal. [place] 416249-06-14 02:42:00 Test Item Value Reference Range Interpretation Comments Bili Direct (test code 0.1 See_Comment [Aut omated message] The = Bili Direct) system which generated this result tra nsmitted reference range : <=0.3. The reference r ondina was not used to int erpret this result as cassie l/abnormal. [place] 416249-06-14 02:42:00 Test Item Value Reference Range Interpretation Comments Albumin Lvl (test code = Albumin Lvl) 3.0 3.5-5.0 [facility]2019-06-14 02:42:00 Test Item Value Reference Range Interpretation Comments Total Protein (test code = Total 6.9 6.4-8.4 Protein) [facility]2019-06-14 02:42:00 Test Item Value Reference Range Interpretation Comments Globulin (test code = Globulin) 3.9 2.7-4.2 [facility]2019-06-14 02:42:00 Test Item Value Reference Range Interpretation Comments A/G Ratio (test code = A/G Ratio) 0.8 1 0.7-1.6 [facility]2019-06-14 02:42:00 Test Item Value Reference Range Interpretation Comments eGFR (test code = eGFR) 68 [facility]2019-06-14 02:42:00 Test Item Value Reference Range Interpretation Comments Potassium Lvl (test code = Potassium 3.9 3.5-5.1 Lvl) [facility]2019-06-14 02:42:00 Test Item Value Reference Range Interpretation Comments Sodium Lvl (test code = Sodium Lvl) 139 135-145 [facility]2019-06-14 02:42:00 Test Item Value Reference Range Interpretation Comments Calcium Lvl (test code = Calcium Lvl) 8.6 8.5-10.5 [facility]2019-06-14 02:42:00 Test Item Value Reference Range Interpretation Comments CO2 (test code = CO2) 25 24-32 [facility]2019-06-14 02:42:00 Test Item Value Reference Range Interpretation Comments Chloride Lvl (test code = Chloride Lvl) 105 95-109 [facility]2019-06-14 02:42:00 Test Item Value Reference Range Interpretation Comments Creatinine Lvl (test code = Creatinine 1.16 0.50-1.40 Lvl) [facility]2019-06-14 02:42:00 Test Item Value Reference Range Interpretation Comments BUN (test code = BUN) 21 7-22 [facility]2019-06-14 02:42:00 Test Item Value Reference Range Interpretation Comments Glucose Lvl (test code = Glucose Lvl) 88 70-99 [facility]2019-06-14 02:42:00 Test Item Value Reference Range Interpretation Comments AGAP (test code = AGAP) 12.9 10.0-20.0 [facility] [id number] 02:42:00 Test Item Value Reference Range Interpretation Comments RDW (test code = RDW) 19.1 11.5-14.5 [facility] CenterFhykqzpOACVQTLSQM4104-11-75 02:42:00 Test Item Value Reference Range Interpretation Comments MPV (test code = MPV) 8.0 7.4-10.4 [facility] CenterVfbostkNURAMWCYQO0361-92-57 02:42:00 Test Item Value Reference Range Interpretation Comments Platelet (test code = Platelet) 259 133-450 [facility] CenterVbcguqqQYPOWUKZQD5113-97-24 02:42:00 Test Item Value Reference Range Interpretation Comments MCHC (test code = MCHC) 31.2 32.0-36.0 [facility] CenterUuotihoTYIRASMJSI3014-83-53 02:42:00 Test Item Value Reference Range Interpretation Comments Hct (test code = Hct) 33.3 42.0-54.0 [facility] CenterUxjdnshJPEYXILEID5286-77-68 02:42:00 Test Item Value Reference Range Interpretation Comments Hgb (test code = Hgb) 10.4 14.0-18.0 [facility] CenterPmwxeydWRGATOPDKE8894-21-28 02:42:00 Test Item Value Reference Range Interpretation Comments RBC (test code = RBC) 4.26 4.70-6.10 [facility] CenterFyxywqfNIBQJRRUIE6636-47-19 02:42:00 Test Item Value Reference Range Interpretation Comments MCV (test code = MCV) 78.2 80.0-94.0 [facility] CenterSdzqnutQUCPZLEJTW8495-79-59 02:42:00 Test Item Value Reference Range Interpretation Comments MCH (test code = MCH) 24.4 pg 27.0-31.0 [facility] CenterOwxpgwgKGQLNOXXIK1223-43-86 02:42:00 Test Item Value Reference Range Interpretation Comments WBC (test code = WBC) 6.0 3.7-10.4 [facility] CenterXmydistVVBHBOOAZC8281-08-63 02:42:00 Test Item Value Reference Range Interpretation Comments Neutrophils # (test code = Neutrophils 4.0 1.5-8.1 #) [facility] CenterBrqaishEGZAJNCXCE7727-66-20 02:42:00 Test Item Value Reference Range Interpretation Comments Lymphocytes # (test code = Lymphocytes 1.3 1.0-5.5 #) [facility] CenterPswoeknHXXMRDFVXD3863-84-20 02:42:00 Test Item Value Reference Range Interpretation Comments Basophils (test code = 1.4 See_Comment [Aut omated message] The Basophils) system which ge nerated this result tra nsmitted reference range : <=1.0. The reference r ondina was not used to int erpret this result as normal/abnormal . [facility] CenterDwpqwjyADXBVVSYDQ7480-48-82 02:42:00 Test Item Value Reference Range Interpretation Comments Eosinophils (test code = 3.5 See_Comment [A utomated message] The Eosinophils) system which ge nerated this result tra nsmitted reference range : <=4.0. The reference r ondina was not used to int erpret this result as normal/abnormal . [facility] CenterZbjtqqaIHVLGIBLKA2382-82-39 02:42:00 Test Item Value Reference Range Interpretation Comments Lymphocytes (test code = Lymphocytes) 21.4 20.0-40.0 [facility] CenterIruwegvULSBIWCDAK4197-05-79 02:42:00 Test Item Value Reference Range Interpretation Comments Monocytes (test code = Monocytes) 7.3 2.0-12.0 [facility] CenterVmrridtGJBMDIXVFU8705-81-92 02:42:00 Test Item Value Reference Range Interpretation Comments Basophils # (test code 0.1 See_Comment [Aut omated message] The = Basophils #) system which generated this result tra nsmitted reference range : <=0.2. The reference r ondina was not used to int erpret this result as normal/abnormal . [facility] CenterPxqcpszLBIHYEGXAQ7934-93-79 02:42:00 Test Item Value Reference Range Interpretation Comments Microcyte (test code = 1+ *ABN*(08/15/18 Microcyte) 9:42 PM) [facility] CenterFskwkrqVWIBDIZMQH1947-13-72 02:42:00 Test Item Value Reference Range Interpretation Comments Monocytes # (test code 0.4 See_Comment [Aut omated message] The = Monocytes #) system which generated this result tra nsmitted reference range : <=0.8. The reference r ondina was not used to int erpret this result as normal/abnormal . [facility] CenterDglopiwNFGVYEHQYC0143-15-67 02:42:00 Test Item Value Reference Range Interpretation Comments Eosinophils # (test code 0.2 See_Comment [A utomated message] The = Eosinophils #) system whic h generated this result tra nsmitted reference range : <=0.5. The reference r ondina was not used to int erpret this result as normal/abnormal . [facility] CenterPegerqeBMGZFUFFXR7612-86-88 02:42:00 Test Item Value Reference Range Interpretation Comments Segs (test code = Segs) 66.4 45.0-75.0 [facility] CenterKsjhwnqRHCYKOCVYV9772-36-21 02:42:00 Test Item Value Reference Range Interpretation Comments PT (test code = PT) 13.5 s 12.0-14.7 [facility] CenterQpexlxfREBKDHZAMO1573-03-84 02:42:00 Test Item Value Reference Range Interpretation Comments PTT (test code = PTT) 28.8 s 22.9-35.8 [facility] CenterMekvnbrYYZOVQAXUS6052-11-07 02:42:00 Test Item Value Reference Range Interpretation Comments INR (test code = INR) 1.05 1 0.85-1.17 [facility] [id number] 20:00:00 Test Item Value Reference Range Interpretation Comments Culture: Anaerobic (test Culture In Progress code = Culture: Anaerobic) [facility] Gfoyyc4964-42-57 20:00:00 Test Item Value Reference Range Interpretation Comments Gram Stain Report Rare WBC's No Organisms (test code = Gram Seen Stain Report) [facility] HospitalCulture: Aspirate/Body Fluid/Owzkzy1097-50-22 20:00:00 Test Item Value Reference Range Interpretation Comments Culture: Aspirate/Body No Growth; Holding Fluid/Tissue (test code = Culture: Aspirate/Body Fluid/Tissue) [facility] Hoapqegjq3575-76-31 20:00:00 Test Item Value Reference Range Interpretation Comments Culture: Anaerobic (test Culture In Progress code = Culture: Anaerobic) [facility] Yvraml4361-72-58 20:00:00 Test Item Value Reference Range Interpretation Comments Gram Stain Report Rare WBC's No Organisms (test code = Gram Seen Stain Report) [facility]Culture: Aspirate/Body Fluid/Eipjtv6140-01-62 20:00:00 Test Item Value Reference Range Interpretation Comments Culture: Aspirate/Body No Growth; Holding Fluid/Tissue (test code = Culture: Aspirate/Body Fluid/Tissue) [facility] Senftpzmp8860-69-94 20:00:00 Test Item Value Reference Range Interpretation Comments Culture: Anaerobic (test Culture In Progress code = Culture: Anaerobic) [facility]annGram [facility] Fboqso6922-69-46 20:00:00 Test Item Value Reference Range Interpretation Comments Gram Stain Report Rare WBC's No Organisms (test code = Gram Seen Stain Report) [facility]Culture: Aspirate/Body Fluid/Cmldco6584-95-30 20:00:00 Test Item Value Reference Range Interpretation Comments Culture: Aspirate/Body No Growth; Holding Fluid/Tissue (test code = Culture: Aspirate/Body Fluid/Tissue) [facility]Culture: Bzunnngmh2510-15-75 20:00:00 Test Item Value Reference Range Interpretation Comments Culture: Anaerobic (test Culture In Progress code = Culture: Anaerobic) [facility] Qckmpw6937-64-26 20:00:00 Test Item Value Reference Range Interpretation Comments Gram Stain Report Rare WBC's No Organisms (test code = Gram Seen Stain Report) [facility] HospitalCulture: Aspirate/Body Fluid/Ccwcqb1465-71-83 20:00:00 Test Item Value Reference Range Interpretation Comments Culture: Aspirate/Body No Growth; Holding Fluid/Tissue (test code = Culture: Aspirate/Body Fluid/Tissue) [facility] HospitalCulture: Rcrefkxqq4508-25-07 20:00:00 Test Item Value Reference Range Interpretation Comments Culture: Anaerobic (test Culture In Progress code = Culture: Anaerobic) [facility] HospitalG[facility] Bwyyeo1352-80-43 20:00:00 Test Item Value Reference Range Interpretation Comments Gram Stain Report Rare WBC's No Organisms (test code = Gram Seen Stain Report) [facility] Aspirate/Body Fluid/Ecdbmx1365-47-11 20:00:00 Test Item Value Reference Range Interpretation Comments Culture: Aspirate/Body No Growth; Holding Fluid/Tissue (test code = Culture: Aspirate/Body Fluid/Tissue) [facility] HospitalCulture: Lbdzjxxqr6137-03-61 15:00:00 Test Item Value Reference Range Interpretation Comments Culture: Anaerobic No Anaerobes Isolated (test code = Culture: After 2 Days Anaerobic) [facility] HospitalannGram Stain Gibhxi8413-84-01 15:00:00 Test Item Value Reference Range Interpretation Comments Gram Stain Report No Wbc'S Or Organisms (test code = Gram Seen Stain Report) [facility] Aspirate/Body Fluid/Njomfc7081-54-65 15:00:00 Test Item Value Reference Range Interpretation Comments Culture: 48 Hour Report - No Aspirate/Body Growth, Holding Fluid/Tissue (test code = Culture: Aspirate/Body Fluid/Tissue) [facility] Dmptqepag1683-05-77 15:00:00 Test Item Value Reference Range Interpretation Comments Culture: Anaerobic No Anaerobes Isolated (test code = Culture: After 2 Days Anaerobic) [facility] Mbywou1104-50-15 15:00:00 Test Item Value Reference Range Interpretation Comments Gram Stain Report No Wbc'S Or Organisms (test code = Gram Seen Stain Report) [facility]: Aspirate/Body Fluid/[id number] 15:00:00 Test Item Value Reference Range Interpretation Comments Culture: 48 Hour Report - No Aspirate/Body Growth, Holding Fluid/Tissue (test code = Culture: Aspirate/Body Fluid/Tissue) [facility]: Lrtpvfadb1709-16-61 15:00:00 Test Item Value Reference Range Interpretation Comments Culture: Anaerobic No Anaerobes Isolated (test code = Culture: After 2 Days Anaerobic) [facility] HospitalG[facility] Ailuii0039-14-25 15:00:00 Test Item Value Reference Range Interpretation Comments Gram Stain Report No Wbc'S Or Organisms (test code = Gram Seen Stain Report) [facility]: Aspirate/Body Fluid/Uinwbm6384-28-45 15:00:00 Test Item Value Reference Range Interpretation Comments Culture: 48 Hour Report - No Aspirate/Body Growth, Holding Fluid/Tissue (test code = Culture: Aspirate/Body Fluid/Tissue) [facility]: Efvltbuxn4937-44-28 15:00:00 Test Item Value Reference Range Interpretation Comments Culture: Anaerobic No Anaerobes Isolated (test code = Culture: After 2 Days Anaerobic) [facility] HospitalG[facility] Owiswg3958-21-25 15:00:00 Test Item Value Reference Range Interpretation Comments Gram Stain Report No Wbc'S Or Organisms (test code = Gram Seen Stain Report) [facility] Aspirate/Body Fluid/[id number] 15:00:00 Test Item Value Reference Range Interpretation Comments Culture: 48 Hour Report - No Aspirate/Body Growth, Holding Fluid/Tissue (test code = Culture: Aspirate/Body Fluid/Tissue) [facility] HospitalCulture: Rajxlggdo5131-98-75 15:00:00 Test Item Value Reference Range Interpretation Comments Culture: Anaerobic No Anaerobes Isolated (test code = Culture: After 2 Days Anaerobic) [facility] Stain Cntwpe2462-15-64 15:00:00 Test Item Value Reference Range Interpretation Comments Gram Stain Report No Wbc'S Or Organisms (test code = Gram Seen Stain Report) [facility] HospitalCulture: Aspirate/Body Fluid/Wqjwgi5970-65-08 15:00:00 Test Item Value Reference Range Interpretation Comments Culture: 48 Hour Report - No Aspirate/Body Growth, Holding Fluid/Tissue (test code = Culture: Aspirate/Body Fluid/Tissue) [facility]2019-04-01 10:50:00 Test Item Value Reference Range Interpretation Comments Calcium Lvl (test code = Calcium Lvl) 7.7 8.5-10.5 [facility]2019-04-01 10:50:00 Test Item Value Reference Range Interpretation Comments Potassium Lvl (test code = Potassium 3.6 3.5-5.1 Lvl) [facility]2019-04-01 10:50:00 Test Item Value Reference Range Interpretation Comments Chloride Lvl (test code = Chloride Lvl) 113 95-109 [facility]2019-04-01 10:50:00 Test Item Value Reference Range Interpretation Comments Sodium Lvl (test code = Sodium Lvl) 144 135-145 [facility]2019-04-01 10:50:00 Test Item Value Reference Range Interpretation Comments Creatinine Lvl (test code = Creatinine 0.86 0.50-1.40 Lvl) [facility]2019-04-01 10:50:00 Test Item Value Reference Range Interpretation Comments eGFR (test code = eGFR) 94 [facility]2019-04-01 10:50:00 Test Item Value Reference Range Interpretation Comments CO2 (test code = CO2) 22 24-32 [facility]2019-04-01 10:50:00 Test Item Value Reference Range Interpretation Comments Glucose Lvl (test code = Glucose Lvl) 89 70-99 [facility]2019-04-01 10:50:00 Test Item Value Reference Range Interpretation Comments BUN (test code = BUN) 10 7-22 [facility]2019-04-01 10:50:00 Test Item Value Reference Range Interpretation Comments AGAP (test code = AGAP) 12.6 10.0-20.0 [facility]2019-04-01 10:50:00 Test Item Value Reference Range Interpretation Comments Calcium Lvl (test code = Calcium Lvl) 7.7 8.5-10.5 [facility]2019-04-01 10:50:00 Test Item Value Reference Range Interpretation Comments Potassium Lvl (test code = Potassium 3.6 3.5-5.1 Lvl) [facility]2019-04-01 10:50:00 Test Item Value Reference Range Interpretation Comments Chloride Lvl (test code = Chloride Lvl) 113 95-109 [facility]2019-04-01 10:50:00 Test Item Value Reference Range Interpretation Comments Sodium Lvl (test code = Sodium Lvl) 144 135-145 [facility]2019-04-01 10:50:00 Test Item Value Reference Range Interpretation Comments Creatinine Lvl (test code = Creatinine 0.86 0.50-1.40 Lvl) [facility]2019-04-01 10:50:00 Test Item Value Reference Range Interpretation Comments eGFR (test code = eGFR) 94 [facility]2019-04-01 10:50:00 Test Item Value Reference Range Interpretation Comments CO2 (test code = CO2) 22 24-32 [facility]2019-04-01 10:50:00 Test Item Value Reference Range Interpretation Comments Glucose Lvl (test code = Glucose Lvl) 89 70-99 [facility]2019-04-01 10:50:00 Test Item Value Reference Range Interpretation Comments BUN (test code = BUN) 10 7-22 [facility]2019-04-01 10:50:00 Test Item Value Reference Range Interpretation Comments AGAP (test code = AGAP) 12.6 10.0-20.0 [facility]2019-04-01 10:50:00 Test Item Value Reference Range Interpretation Comments Calcium Lvl (test code = Calcium Lvl) 7.7 8.5-10.5 [facility]2019-04-01 10:50:00 Test Item Value Reference Range Interpretation Comments Potassium Lvl (test code = Potassium 3.6 3.5-5.1 Lvl) [facility]2019-04-01 10:50:00 Test Item Value Reference Range Interpretation Comments Chloride Lvl (test code = Chloride Lvl) 113 95-109 [facility]2019-04-01 10:50:00 Test Item Value Reference Range Interpretation Comments Sodium Lvl (test code = Sodium Lvl) 144 135-145 [facility]2019-04-01 10:50:00 Test Item Value Reference Range Interpretation Comments Creatinine Lvl (test code = Creatinine 0.86 0.50-1.40 Lvl) [facility]2019-04-01 10:50:00 Test Item Value Reference Range Interpretation Comments eGFR (test code = eGFR) 94 [facility]2019-04-01 10:50:00 Test Item Value Reference Range Interpretation Comments CO2 (test code = CO2) 22 24-32 [facility]2019-04-01 10:50:00 Test Item Value Reference Range Interpretation Comments Glucose Lvl (test code = Glucose Lvl) 89 70-99 [facility]2019-04-01 10:50:00 Test Item Value Reference Range Interpretation Comments BUN (test code = BUN) 10 7-22 [facility]2019-04-01 10:50:00 Test Item Value Reference Range Interpretation Comments AGAP (test code = AGAP) 12.6 10.0-20.0 [facility]2019-04-01 10:50:00 Test Item Value Reference Range Interpretation Comments Calcium Lvl (test code = Calcium Lvl) 7.7 8.5-10.5 [facility]2019-04-01 10:50:00 Test Item Value Reference Range Interpretation Comments Potassium Lvl (test code = Potassium 3.6 3.5-5.1 Lvl) [facility]2019-04-01 10:50:00 Test Item Value Reference Range Interpretation Comments Chloride Lvl (test code = Chloride Lvl) 113 95-109 [facility]2019-04-01 10:50:00 Test Item Value Reference Range Interpretation Comments Sodium Lvl (test code = Sodium Lvl) 144 135-145 [facility]2019-04-01 10:50:00 Test Item Value Reference Range Interpretation Comments Creatinine Lvl (test code = Creatinine 0.86 0.50-1.40 Lvl) [facility]2019-04-01 10:50:00 Test Item Value Reference Range Interpretation Comments eGFR (test code = eGFR) 94 [facility]2019-04-01 10:50:00 Test Item Value Reference Range Interpretation Comments CO2 (test code = CO2) - [facility]2019-04-01 10:50:00 Test Item Value Reference Range Interpretation Comments Glucose Lvl (test code = Glucose Lvl) 89 70-99 [facility]2019-04-01 10:50:00 Test Item Value Reference Range Interpretation Comments BUN (test code = BUN) 10 - [facility]2019-04-01 10:50:00 Test Item Value Reference Range Interpretation Comments AGAP (test code = AGAP) 12.6 10.0-20.0 [facility]2019-04-01 10:50:00 Test Item Value Reference Range Interpretation Comments Calcium Lvl (test code = Calcium Lvl) 7.7 8.5-10.5 [facility]2019-04-01 10:50:00 Test Item Value Reference Range Interpretation Comments Potassium Lvl (test code = Potassium 3.6 3.5-5.1 Lvl) [facility]2019-04-01 10:50:00 Test Item Value Reference Range Interpretation Comments Chloride Lvl (test code = Chloride Lvl) 113 95-109 [facility]2019-04-01 10:50:00 Test Item Value Reference Range Interpretation Comments Sodium Lvl (test code = Sodium Lvl) 144 135-145 [facility]2019-04-01 10:50:00 Test Item Value Reference Range Interpretation Comments Creatinine Lvl (test code = Creatinine 0.86 0.50-1.40 Lvl) [facility]2019-04-01 10:50:00 Test Item Value Reference Range Interpretation Comments eGFR (test code = eGFR) 94 [facility]2019-04-01 10:50:00 Test Item Value Reference Range Interpretation Comments CO2 (test code = CO2) - [facility]2019-04-01 10:50:00 Test Item Value Reference Range Interpretation Comments Glucose Lvl (test code = Glucose Lvl) 89 70-99 [facility]2019-04-01 10:50:00 Test Item Value Reference Range Interpretation Comments BUN (test code = BUN) 10 7-22 [facility]2019-04-01 10:50:00 Test Item Value Reference Range Interpretation Comments AGAP (test code = AGAP) 12.6 10.0-20.0 [facility] CenterFcfswpjLBJJVRYQPH4783-75-35 20:59:00 Test Item Value Reference Range Interpretation Comments MCHC (test code = MCHC) 30.8 32.0-36.0 [facility] CenterMxxteyvWKEPRBZXBI9365-50-56 20:59:00 Test Item Value Reference Range Interpretation Comments MCV (test code = MCV) 81.3 80.0-94.0 [facility] CenterPovysclEKIKYOHQWP4400-11-39 20:59:00 Test Item Value Reference Range Interpretation Comments MCH (test code = MCH) 25.1 pg 27.0-31.0 [facility] CenterKumblvxJKQKOOWABA1242-02-36 20:59:00 Test Item Value Reference Range Interpretation Comments RDW (test code = RDW) 18.6 11.5-14.5 [facility] CenterPfnjcovJYWLKWEVLQ6067-23-93 20:59:00 Test Item Value Reference Range Interpretation Comments RBC (test code = RBC) 3.52 4.70-6.10 [facility] CenterGubbaufTXUOQTCLUO2225-34-25 20:59:00 Test Item Value Reference Range Interpretation Comments Hgb (test code = Hgb) 8.8 14.0-18.0 [facility] CenterGpsivriOHJRWCJXVG9093-36-81 20:59:00 Test Item Value Reference Range Interpretation Comments WBC (test code = WBC) 6.0 3.7-10.4 [facility] CenterGoigfspJVZLJLTIYJ2204-41-19 20:59:00 Test Item Value Reference Range Interpretation Comments Hct (test code = Hct) 28.6 42.0-54.0 [facility] CenterElqqrtrRNMFASLNUR6085-34-21 20:59:00 Test Item Value Reference Range Interpretation Comments Platelet (test code = Platelet) 390 133-450 [facility] CenterJhzyyhmAMZBGTROSO9302-07-04 20:59:00 Test Item Value Reference Range Interpretation Comments Monocytes (test code = Monocytes) 10.1 2.0-12.0 [facility] CenterFkmkbrtHSRCTFXKHX2347-33-79 20:59:00 Test Item Value Reference Range Interpretation Comments Lymphocytes (test code = Lymphocytes) 16.4 20.0-40.0 [facility] CenterKqqyhkjARNWEXGYMJ2428-27-80 20:59:00 Test Item Value Reference Range Interpretation Comments Anisocyte (test code = 1+ *ABN*(06/02/18 Anisocyte) 3:59 PM) [facility] CenterNtsuvpaVQWBDVNRRL8831-40-63 20:59:00 Test Item Value Reference Range Interpretation Comments Eosinophils # (test code 0.2 See_Comment [A utomated message] The = Eosinophils #) system whic h generated this result tra nsmitted reference range : <=0.5. The reference r ondina was not used to int erpret this result as normal/abnormal . [facility] CenterHxpffhxFNHBIFQFBK4362-31-86 20:59:00 Test Item Value Reference Range Interpretation Comments Neutrophils # (test code = Neutrophils 4.1 1.5-8.1 #) [facility] CenterJmzrsnqVSYSZYNNKZ0090-96-40 20:59:00 Test Item Value Reference Range Interpretation Comments Basophils (test code = 0.8 See_Comment [Aut omated message] The Basophils) system which ge nerated this result tra nsmitted reference range : <=1.0. The reference r ondina was not used to int erpret this result as normal/abnormal . [facility] CenterLsjauctQSHEXTUOWB2354-80-25 20:59:00 Test Item Value Reference Range Interpretation Comments Eosinophils (test code = 4.0 See_Comment [A utomated message] The Eosinophils) system which ge nerated this result tra nsmitted reference range : <=4.0. The reference r ondina was not used to int erpret this result as normal/abnormal . [facility] CenterFeewkarTDQCCUXQGA5855-60-66 20:59:00 Test Item Value Reference Range Interpretation Comments Segs (test code = Segs) 68.7 45.0-75.0 [facility] CenterZuhrjunIBWMXZXEGU4645-56-89 20:59:00 Test Item Value Reference Range Interpretation Comments Hypochrom (test code = 2+ (06/02/18 3:59 PM) Hypochrom) [facility] CenterBkqmtdjPXYXFYMMBH8961-89-40 20:59:00 Test Item Value Reference Range Interpretation Comments Large Plt (test code Moderate *ABN*(06/02/18 = Large Plt) 3:59 PM) [facility]QxefcnrSCHAVYWSGS7054-87-88 20:59:00 Test Item Value Reference Range Interpretation Comments Lymphocytes # (test code = Lymphocytes 1.0 1.0-5.5 #) [facility] MichiganRmkhseoHFOPASMFHP5636-03-28 20:59:00 Test Item Value Reference Range Interpretation Comments Monocytes # (test code 0.6 See_Comment [Aut omated message] The = Monocytes #) system which generated this result tra nsmitted reference range : <=0.8. The reference r ondina was not used to int erpret this result as normal/abnormal . [facility]CARVinspiAC WKEFSBO2645-56-76 20:59:00 Test Item Value Reference Range Interpretation Comments BNP (test code = BNP) 454 [facility] PPDRMRS6538-36-93 20:59:00 Test Item Value Reference Range Interpretation Comments Troponin-I (test code no gt See_Comment [Auto mated message] The = Troponin-I) system which g enerated this result transmit garrett reference range : <=0.40. The reference r ondina was not used to interpr et this result as cassie l/abnormal. [facility] OUNKBQX8459-35-28 20:59:00 Test Item Value Reference Range Interpretation Comments Total CK (test code = Total CK) 38 12-191 [facility]VcsbnzqAPIBUHWDCLOX3545-76-89 20:59:00 Test Item Value Reference Range Interpretation Comments AGAP (test code = AGAP) 9.7 10.0-20.0 [facility] MichiganVecypbpAIGKDQPRKXNW7910-23-06 20:59:00 Test Item Value Reference Range Interpretation Comments B/C Ratio (test code = B/C Ratio) 11 1 6-25 [facility] MichiganMuhlnkiLEXLIVGXWKNN7051-24-00 20:59:00 Test Item Value Reference Range Interpretation Comments A/G Ratio (test code = A/G Ratio) 0.6 1 0.7-1.6 [facility] CampusQielmthUARCSUUEAGMV1031-47-19 20:59:00 Test Item Value Reference Range Interpretation Comments Globulin (test code = Globulin) 4.2 2.7-4.2 [facility] CampusYwwpltyTPPJXLEMOHYJ2634-12-46 20:59:00 Test Item Value Reference Range Interpretation Comments Albumin Lvl (test code = Albumin Lvl) 2.7 3.5-5.0 [facility]UrifqdmABBFFLZHVZCR4428-01-05 20:59:00 Test Item Value Reference Range Interpretation Comments Glucose Lvl (test code = Glucose Lvl) 98 70-99 [facility] MichiganBezkeskOSKWZCYXPDJR3882-57-53 20:59:00 Test Item Value Reference Range Interpretation Comments CO2 (test code = CO2) 26 24-32 [facility] MichiganWjvntjxELSOXLPWJCFE6724-32-74 20:59:00 Test Item Value Reference Range Interpretation Comments BUN (test code = BUN) 11 7-22 [facility]EtzwchxMOEQJDMBKUJI1162-27-70 20:59:00 Test Item Value Reference Range Interpretation Comments eGFR (test code = eGFR) 82 [facility]XsdoezoWKRPFYJMAWTU8152-49-44 20:59:00 Test Item Value Reference Range Interpretation Comments AST (test code = AST) 6 See_Comment [Auto mated message] The system which ge nerated this result transmit garrett reference range : <=37. The reference range was not used to interpr et this result as cassie l/abnormal. [facility] MichiganQfjdkdjEIONSQOOWFPB1530-33-41 20:59:00 Test Item Value Reference Range Interpretation Comments ALT (test code = ALT) 13 See_Comment [Auto mated message] The system which ge nerated this result transmit garrett reference range : <=65. The reference range was not used to interpr et this result as cassie l/abnormal. [facility] MichiganHayhhpzNINDEKOZKLWR0570-39-64 20:59:00 Test Item Value Reference Range Interpretation Comments Creatinine Lvl (test code = Creatinine 1.00 0.50-1.40 Lvl) [facility] MichiganIbdnvleFKSLQMUPCIHB8509-86-72 20:59:00 Test Item Value Reference Range Interpretation Comments Bili Total (test code = Bili Total) 0.1 0.2-1.3 [facility]PzsxaavNAYAASDOGIQA2788-70-38 20:59:00 Test Item Value Reference Range Interpretation Comments Total Protein (test code = Total 6.9 6.4-8.4 Protein) [facility] MichiganAxsadyvEKOGAWDKCDZP2283-82-30 20:59:00 Test Item Value Reference Range Interpretation Comments Calcium Lvl (test code = Calcium Lvl) 8.2 8.5-10.5 [facility] MichiganBnavhslJPICHVPUHHBX1969-75-40 20:59:00 Test Item Value Reference Range Interpretation Comments Alk Phos (test code = Alk Phos) 122 39-136 [facility] MichiganLvfmopeHIPVASNWSIFW7102-81-79 20:59:00 Test Item Value Reference Range Interpretation Comments Sodium Lvl (test code = Sodium Lvl) 145 135-145 [facility]QqccwbtSJSAVCWRAVDA7668-55-37 20:59:00 Test Item Value Reference Range Interpretation Comments Chloride Lvl (test code = Chloride Lvl) 113 95-109 [facility] MichiganIyonyntFTKPCWBPJWMK4575-51-36 20:59:00 Test Item Value Reference Range Interpretation Comments Potassium Lvl (test code = Potassium 3.7 3.5-5.1 Lvl) [facility] CenterQvsjehfOVJZPGNNBO3153-87-45 20:59:00 Test Item Value Reference Range Interpretation Comments PT (test code = PT) 13.3 s 12.0-14.7 [facility] CenterQjxqwdgCZUMIGDMDT5439-92-58 20:59:00 Test Item Value Reference Range Interpretation Comments INR (test code = INR) 1.03 1 0.85-1.17 [facility] CenterXzjqzjaCUAWFXUHRO9515-37-08 20:59:00 Test Item Value Reference Range Interpretation Comments PTT (test code = PTT) 31.9 s 22.9-35.8 [facility] CenterFpmxrgzKKVSSFRWDU4578-43-72 20:59:00 Test Item Value Reference Range Interpretation Comments MPV (test code = MPV) 8.1 7.4-10.4 [facility] CenterMqjgtxmGBDWWMZLPS7637-54-33 20:59:00 Test Item Value Reference Range Interpretation Comments MCHC (test code = MCHC) 30.8 32.0-36.0 [facility] CenterHqtkskdSOKIVEXOCE8358-49-61 20:59:00 Test Item Value Reference Range Interpretation Comments MCV (test code = MCV) 81.3 80.0-94.0 [facility] CenterMtgilohIUCAJPOREP5643-63-77 20:59:00 Test Item Value Reference Range Interpretation Comments MCH (test code = MCH) 25.1 pg 27.0-31.0 [facility] CenterXuuanyfSNKQEZOPVJ3081-85-80 20:59:00 Test Item Value Reference Range Interpretation Comments RDW (test code = RDW) 18.6 11.5-14.5 [facility] CenterRsowiacULCYKKLTJM8201-40-43 20:59:00 Test Item Value Reference Range Interpretation Comments RBC (test code = RBC) 3.52 4.70-6.10 [facility] CenterTyyebxpAADARKDJUU5742-12-16 20:59:00 Test Item Value Reference Range Interpretation Comments Hgb (test code = Hgb) 8.8 14.0-18.0 [facility] CenterBxgdjgvXXAVVTXDJU1519-87-43 20:59:00 Test Item Value Reference Range Interpretation Comments WBC (test code = WBC) 6.0 3.7-10.4 [facility] CenterRtwfgrtMTZBUSDPEJ5487-15-93 20:59:00 Test Item Value Reference Range Interpretation Comments Hct (test code = Hct) 28.6 42.0-54.0 [facility] CenterPouzbbzLEFZBZIUWV2567-32-85 20:59:00 Test Item Value Reference Range Interpretation Comments Platelet (test code = Platelet) 390 133-450 [facility] CenterQefcrzxBXCNXPVYBV7600-94-55 20:59:00 Test Item Value Reference Range Interpretation Comments Monocytes (test code = Monocytes) 10.1 2.0-12.0 [facility] CenterYerqbceYRFLIQPVUG2908-17-78 20:59:00 Test Item Value Reference Range Interpretation Comments Lymphocytes (test code = Lymphocytes) 16.4 20.0-40.0 [facility] CenterBpxpunaXIXMIIIGDM2026-08-43 20:59:00 Test Item Value Reference Range Interpretation Comments Anisocyte (test code = 1+ *ABN*(06/02/18 Anisocyte) 3:59 PM) [facility] CenterKpxgdjbTLRKUBNKVU3482-66-38 20:59:00 Test Item Value Reference Range Interpretation Comments Eosinophils # (test code 0.2 See_Comment [A utomated message] The = Eosinophils #) system [facility] generated this result tra nsmitted reference range : <=0.5. The reference r ondina was not used to int erpret this result as normal/abnormal . [facility] CenterDjaxytcYEYNXANXEV2098-03-22 20:59:00 Test Item Value Reference Range Interpretation Comments Neutrophils # (test code = Neutrophils 4.1 1.5-8.1 #) [facility] CenterPxlmdktZPPLCHGMBR8470-86-11 20:59:00 Test Item Value Reference Range Interpretation Comments Basophils (test code = 0.8 See_Comment [Aut omated message] The Basophils) system which ge nerated this result tra nsmitted reference range : <=1.0. The reference r ondina was not used to int erpret this result as normal/abnormal . [facility]CnegkmeTOWOQCGMHA1863-05-50 20:59:00 Test Item Value Reference Range Interpretation Comments Eosinophils (test code = 4.0 See_Comment [A utomated message] The Eosinophils) system which ge nerated this result tra nsmitted reference range : <=4.0. The reference r ondina was not used to int erpret this result as normal/abnormal . [facility] MichiganWzmydmkKQEXVYPSZM7345-46-88 20:59:00 Test Item Value Reference Range Interpretation Comments Segs (test code = Segs) 68.7 45.0-75.0 [facility] CenterNecngooSRAJOPUOYI1135-64-30 20:59:00 Test Item Value Reference Range Interpretation Comments Hypochrom (test code = 2+ (06/02/18 3:59 PM) Hypochrom) [facility] CenterMogvvwzJWYHQEYLPW6286-25-65 20:59:00 Test Item Value Reference Range Interpretation Comments Large Plt (test code Moderate *ABN*(06/02/18 = Large Plt) 3:59 PM) [facility] CenterLvtlfpdKUAPEOBXXF0236-66-64 20:59:00 Test Item Value Reference Range Interpretation Comments Lymphocytes # (test code = Lymphocytes 1.0 1.0-5.5 #) [facility] MichiganTdnmmxpWVKKNYQTHE3767-20-90 20:59:00 Test Item Value Reference Range Interpretation Comments Monocytes # (test code 0.6 See_Comment [Aut omated message] The = Monocytes #) system which generated this result tra nsmitted reference range : <=0.8. The reference r ondina was not used to int erpret this result as normal/abnormal . [facility] HospitalCARDIAC ATJPTZO2464-44-19 20:59:00 Test Item Value Reference Range Interpretation Comments BNP (test code = BNP) 454 [facility] HospitalCARAC GLHMIXH1378-99-91 20:59:00 Test Item Value Reference Range Interpretation Comments Troponin-I (test code = Troponin-I) no gt <=0.40 [facility] HospitalCARAC DBPSOXC9165-94-20 20:59:00 Test Item Value Reference Range Interpretation Comments Total CK (test code = Total CK) 38 12-191 [facility]LoawjdmDKJGEDHYTCAA5771-13-91 20:59:00 Test Item Value Reference Range Interpretation Comments AGAP (test code = AGAP) 9.7 10.0-20.0 [facility]YirkrlmHRGTOXGCNGAV9305-59-52 20:59:00 Test Item Value Reference Range Interpretation Comments B/C Ratio (test code = B/C Ratio) 11 1 6-25 [facility] MichiganVdmgnlpFPQMMPITTRAW5867-68-45 20:59:00 Test Item Value Reference Range Interpretation Comments A/G Ratio (test code = A/G Ratio) 0.6 1 0.7-1.6 [facility] MichiganMouiamuESDXCQRLBFUB0189-13-92 20:59:00 Test Item Value Reference Range Interpretation Comments Globulin (test code = Globulin) 4.2 2.7-4.2 [facility] MichiganJdepfrrYANCIMAODRGW1899-41-19 20:59:00 Test Item Value Reference Range Interpretation Comments Albumin Lvl (test code = Albumin Lvl) 2.7 3.5-5.0 [facility] MichiganYlszftsYABRRXQMHBJY4913-38-47 20:59:00 Test Item Value Reference Range Interpretation Comments Glucose Lvl (test code = Glucose Lvl) 98 70-99 [facility] MichiganEiuiiwgQKXEAFIRXBTV5937-01-81 20:59:00 Test Item Value Reference Range Interpretation Comments CO2 (test code = CO2) 26 24-32 [facility] MichiganBdxztknYFHNRHEJEKTG5410-04-97 20:59:00 Test Item Value Reference Range Interpretation Comments BUN (test code = BUN) 11 7-22 [facility] MichiganPkvuqtcDMPKMIRUKRGJ7269-96-35 20:59:00 Test Item Value Reference Range Interpretation Comments eGFR (test code = eGFR) 82 [facility] MichiganVrmueyxFVCQXIBLKPEM5423-18-44 20:59:00 Test Item Value Reference Range Interpretation Comments AST (test code = AST) 6 <=37 [facility] MichiganRowvijcDZCBLJHMNFXR5242-37-95 20:59:00 Test Item Value Reference Range Interpretation Comments ALT (test code = ALT) 13 <=65 [facility]YzbwajySUQBDAYGOASV6593-28-52 20:59:00 Test Item Value Reference Range Interpretation Comments Creatinine Lvl (test code = Creatinine 1.00 0.50-1.40 Lvl) [facility]XwyjcerJMFBFPXTUPAI8906-12-79 20:59:00 Test Item Value Reference Range Interpretation Comments Bili Total (test code = Bili Total) 0.1 0.2-1.3 [facility] MichiganTxwcrebUIICLTHRYVST3624-28-04 20:59:00 Test Item Value Reference Range Interpretation Comments Total Protein (test code = Total 6.9 6.4-8.4 Protein) [facility] MichiganZczwchtCOKUQUZUSOEY8814-63-24 20:59:00 Test Item Value Reference Range Interpretation Comments Calcium Lvl (test code = Calcium Lvl) 8.2 8.5-10.5 [facility] MichiganWyetyawTVCLJUPTNYWX8763-19-33 20:59:00 Test Item Value Reference Range Interpretation Comments Alk Phos (test code = Alk Phos) 122 39-136 [facility] MichiganDpbioteGIMJNPQQDFRJ7446-38-13 20:59:00 Test Item Value Reference Range Interpretation Comments Sodium Lvl (test code = Sodium Lvl) 145 135-145 [facility] MichiganNfmhucvKCYHVXOEIWYO6509-00-69 20:59:00 Test Item Value Reference Range Interpretation Comments Chloride Lvl (test code = Chloride Lvl) 113 95-109 [facility] MichiganYqslwgbMLOKEXIHQOHZ4413-43-68 20:59:00 Test Item Value Reference Range Interpretation Comments Potassium Lvl (test code = Potassium 3.7 3.5-5.1 Lvl) [facility] CenterNgcaxssSWDTONRKVA4529-37-80 20:59:00 Test Item Value Reference Range Interpretation Comments PT (test code = PT) 13.3 s 12.0-14.7 [facility] CenterSaxpkdnHSQURIETNV8609-13-10 20:59:00 Test Item Value Reference Range Interpretation Comments INR (test code = INR) 1.03 1 0.85-1.17 [facility] CenterGxilmuuCITYFHEFYG1787-35-61 20:59:00 Test Item Value Reference Range Interpretation Comments PTT (test code = PTT) 31.9 s 22.9-35.8 [facility] CenterHidgdnrGNBCEJIWBV1203-56-62 20:59:00 Test Item Value Reference Range Interpretation Comments MPV (test code = MPV) 8.1 7.4-10.4 [facility] CenterTnknjbdSEPPFBKIEV9924-68-13 20:59:00 Test Item Value Reference Range Interpretation Comments MCHC (test code = MCHC) 30.8 32.0-36.0 [facility] CenterFavvyjkXMGKXXPGQG1901-05-65 20:59:00 Test Item Value Reference Range Interpretation Comments MCV (test code = MCV) 81.3 80.0-94.0 [facility] CenterAohqhoeSGCJPHAQPV7903-09-39 20:59:00 Test Item Value Reference Range Interpretation Comments MCH (test code = MCH) 25.1 pg 27.0-31.0 [facility] CenterNfggmsgSQFUEDKOYS9500-23-70 20:59:00 Test Item Value Reference Range Interpretation Comments RDW (test code = RDW) 18.6 11.5-14.5 [facility] CenterEbhyrerVHCZQYBQGR2060-82-65 20:59:00 Test Item Value Reference Range Interpretation Comments RBC (test code = RBC) 3.52 4.70-6.10 [facility] CenterIjhqahuHLPDHCZQUJ0318-52-66 20:59:00 Test Item Value Reference Range Interpretation Comments Hgb (test code = Hgb) 8.8 14.0-18.0 [facility] CenterGosncmbCBYKQVOEVY3504-76-97 20:59:00 Test Item Value Reference Range Interpretation Comments WBC (test code = WBC) 6.0 3.7-10.4 [facility] CenterShanwgeGMXFWGRZYJ7392-66-36 20:59:00 Test Item Value Reference Range Interpretation Comments Hct (test code = Hct) 28.6 42.0-54.0 [facility] CenterYhlzkbvJXXVOYMEDF1253-22-99 20:59:00 Test Item Value Reference Range Interpretation Comments Platelet (test code = Platelet) 390 133-450 [facility] CenterGxbatkhOXALEKVCHA6907-18-95 20:59:00 Test Item Value Reference Range Interpretation Comments Monocytes (test code = Monocytes) 10.1 2.0-12.0 [facility] CenterIwualviKXVUSASTVS6765-87-01 20:59:00 Test Item Value Reference Range Interpretation Comments Lymphocytes (test code = Lymphocytes) 16.4 20.0-40.0 [facility] CenterWecojqdWNBDIQUVMI4286-32-73 20:59:00 Test Item Value Reference Range Interpretation Comments Anisocyte (test code = 1+ *ABN*(06/02/18 Anisocyte) 3:59 PM) [facility] CenterUsrhsumNLOSXKHFDU1694-94-69 20:59:00 Test Item Value Reference Range Interpretation Comments Eosinophils # (test code = Eosinophils 0.2 <=0.5 #) [facility] CenterAnurgqrZNRKIBCAJP0690-10-86 20:59:00 Test Item Value Reference Range Interpretation Comments Neutrophils # (test code = Neutrophils 4.1 1.5-8.1 #) [facility] CenterYmcelzpVSZOVVMWFR0447-19-43 20:59:00 Test Item Value Reference Range Interpretation Comments Basophils (test code = Basophils) 0.8 <=1.0 [facility] CenterXvljnufZCNICBBUQQ2963-65-50 20:59:00 Test Item Value Reference Range Interpretation Comments Eosinophils (test code = Eosinophils) 4.0 <=4.0 [facility] CenterCdkxgunLGBGGUMONX0992-43-34 20:59:00 Test Item Value Reference Range Interpretation Comments Segs (test code = Segs) 68.7 45.0-75.0 [facility] CenterCqhpgudILFSPJGSEN0046-17-27 20:59:00 Test Item Value Reference Range Interpretation Comments Hypochrom (test code = 2+ (06/02/18 3:59 PM) Hypochrom) [facility] CenterDauzwtfPAGPNCAUCK7203-28-35 20:59:00 Test Item Value Reference Range Interpretation Comments Large Plt (test code Moderate *ABN*(06/02/18 = Large Plt) 3:59 PM) [facility] CenterTrqtymmXOQWDCBUDN8805-01-72 20:59:00 Test Item Value Reference Range Interpretation Comments Lymphocytes # (test code = Lymphocytes 1.0 1.0-5.5 #) [facility] CenterZgymfhbJDXITQIYJH4319-23-55 20:59:00 Test Item Value Reference Range Interpretation Comments Monocytes # (test code = Monocytes #) 0.6 <=0.8 [facility] ICMPNOR1455-87-95 20:59:00 Test Item Value Reference Range Interpretation Comments BNP (test code = BNP) 454 [facility] RPLMLXR0522-09-81 20:59:00 Test Item Value Reference Range Interpretation Comments Troponin-I (test code no gt See_Comment [Auto mated message] The = Troponin-I) system which g enerated this result transmit garrett reference range : <=0.40. The reference r ondina was not used to interpr et this result as cassie l/abnormal. [facility] NHTATFU2495-18-68 20:59:00 Test Item Value Reference Range Interpretation Comments Total CK (test code = Total CK) 38 12-191 [facility] MichiganArjuanmNVGCVDIGSGMB6100-42-80 20:59:00 Test Item Value Reference Range Interpretation Comments AGAP (test code = AGAP) 9.7 10.0-20.0 [facility] MichiganOektkrlIZDNMGVXJWGI5182-81-94 20:59:00 Test Item Value Reference Range Interpretation Comments B/C Ratio (test code = B/C Ratio) 11 1 6-25 [facility] MichiganCfkutxzVSUIYPMNQXAY3582-40-89 20:59:00 Test Item Value Reference Range Interpretation Comments A/G Ratio (test code = A/G Ratio) 0.6 1 0.7-1.6 [facility] MichiganJjcbdpkRTCQEFQKSYBQ1024-15-37 20:59:00 Test Item Value Reference Range Interpretation Comments Globulin (test code = Globulin) 4.2 2.7-4.2 [facility] MichiganSqlnloqBNXANJUONRAS9940-61-40 20:59:00 Test Item Value Reference Range Interpretation Comments Albumin Lvl (test code = Albumin Lvl) 2.7 3.5-5.0 [facility] MichiganVmnpbheULYQSOWVELIU5999-53-22 20:59:00 Test Item Value Reference Range Interpretation Comments Glucose Lvl (test code = Glucose Lvl) 98 70-99 [facility]QncowlkNUXMRMZRZNQQ6064-11-00 20:59:00 Test Item Value Reference Range Interpretation Comments CO2 (test code = CO2) 26 24-32 [facility] MichiganCocepcoCSXHUCQSZCJI9463-36-14 20:59:00 Test Item Value Reference Range Interpretation Comments BUN (test code = BUN) 11 7-22 [facility] MichiganEmoouplNMEGNFSZNZIY2204-68-98 20:59:00 Test Item Value Reference Range Interpretation Comments eGFR (test code = eGFR) 82 [facility] MichiganUqwmlueHEGAJICCHIIZ0727-31-09 20:59:00 Test Item Value Reference Range Interpretation Comments AST (test code = AST) 6 See_Comment [Auto mated message] The system which ge nerated this result transmit garrett reference range : <=37. The reference range was not used to interpr et this result as cassie l/abnormal. [facility] MichiganPafvfhtVUIDMJJHMBOQ4410-07-70 20:59:00 Test Item Value Reference Range Interpretation Comments ALT (test code = ALT) 13 See_Comment [Auto mated message] The system which ge nerated this result transmit garrett reference range : <=65. The reference range was not used to interpr et this result as cassie l/abnormal. [facility] MichiganAqinaydESVBJJFRRGNW8529-29-58 20:59:00 Test Item Value Reference Range Interpretation Comments Creatinine Lvl (test code = Creatinine 1.00 0.50-1.40 Lvl) [facility] MichiganRvwcciyZZCKDMEWVRUR4368-63-50 20:59:00 Test Item Value Reference Range Interpretation Comments Bili Total (test code = Bili Total) 0.1 0.2-1.3 [facility] MichiganSpkfbdjSFKMOKHNPSIU2193-13-01 20:59:00 Test Item Value Reference Range Interpretation Comments Total Protein (test code = Total 6.9 6.4-8.4 Protein) [facility] MichiganCfnqineHSYTSZBLCWVA9242-38-71 20:59:00 Test Item Value Reference Range Interpretation Comments Calcium Lvl (test code = Calcium Lvl) 8.2 8.5-10.5 [facility] MichiganDsgdvxaPNWVQQTEMDJV1418-46-60 20:59:00 Test Item Value Reference Range Interpretation Comments Alk Phos (test code = Alk Phos) 122 39-136 [facility] [place]mfRTIBKBETKQRY8898-41-59 20:59:00 Test Item Value Reference Range Interpretation Comments Sodium Lvl (test code = Sodium Lvl) 145 135-145 [facility]KdexxqaUHLDHMBHTZPU2941-73-11 20:59:00 Test Item Value Reference Range Interpretation Comments Chloride Lvl (test code = Chloride Lvl) 113 95-109 [facility] MichiganKcdsqixEMXVEHRIUFJQ0049-56-33 20:59:00 Test Item Value Reference Range Interpretation Comments Potassium Lvl (test code = Potassium 3.7 3.5-5.1 Lvl) [facility] CenterQsdparxMDDMHVORFE0894-70-76 20:59:00 Test Item Value Reference Range Interpretation Comments PT (test code = PT) 13.3 s 12.0-14.7 [facility] CenterLhdehfaEJCOQHYORN0699-89-55 20:59:00 Test Item Value Reference Range Interpretation Comments INR (test code = INR) 1.03 1 0.85-1.17 [facility] CenterSiibakyNLQSCMENXI6032-81-87 20:59:00 Test Item Value Reference Range Interpretation Comments PTT (test code = PTT) 31.9 s 22.9-35.8 [facility] CenterRknphxgNTEYVJIEAS7303-73-01 20:59:00 Test Item Value Reference Range Interpretation Comments MPV (test code = MPV) 8.1 7.4-10.4 [facility] CenterMycsmwnDVLCANEFFQ1319-37-24 20:59:00 Test Item Value Reference Range Interpretation Comments MCHC (test code = MCHC) 30.8 32.0-36.0 [facility] CenterOxdjzvuGTXGRBGBLQ3945-05-15 20:59:00 Test Item Value Reference Range Interpretation Comments MCV (test code = MCV) 81.3 80.0-94.0 [facility] CenterXjmspupRVHLQKSSRO7598-51-87 20:59:00 Test Item Value Reference Range Interpretation Comments MCH (test code = MCH) 25.1 pg 27.0-31.0 [facility] CenterQdcevpmWDBATJGUNO9653-76-55 20:59:00 Test Item Value Reference Range Interpretation Comments RDW (test code = RDW) 18.6 11.5-14.5 [facility] CenterMttpjsePXYVIJFLCY4245-50-11 20:59:00 Test Item Value Reference Range Interpretation Comments RBC (test code = RBC) 3.52 4.70-6.10 [facility] CenterOsmczqrGSOPIJLSBA7939-64-21 20:59:00 Test Item Value Reference Range Interpretation Comments Hgb (test code = Hgb) 8.8 14.0-18.0 [facility] CenterVsvzsdgNPBKNKIIUX7834-41-07 20:59:00 Test Item Value Reference Range Interpretation Comments WBC (test code = WBC) 6.0 3.7-10.4 [facility] CenterCaukimrFWFPHGEGPG0339-34-06 20:59:00 Test Item Value Reference Range Interpretation Comments Hct (test code = Hct) 28.6 42.0-54.0 [facility] CenterBtelfaeFERURXWSFQ3837-25-62 20:59:00 Test Item Value Reference Range Interpretation Comments Platelet (test code = Platelet) 390 133-450 [facility] CenterByuwbfrACUITTXIRG3549-22-42 20:59:00 Test Item Value Reference Range Interpretation Comments Monocytes (test code = Monocytes) 10.1 2.0-12.0 [facility] CenterRrkzsgsUSZHZKAZRD2509-06-50 20:59:00 Test Item Value Reference Range Interpretation Comments Lymphocytes (test code = Lymphocytes) 16.4 20.0-40.0 [facility] CenterFxiugsqPTBYKGQEEU4511-66-46 20:59:00 Test Item Value Reference Range Interpretation Comments Anisocyte (test code = 1+ *ABN*(06/02/18 Anisocyte) 3:59 PM) [facility] CenterFwdnxhtRJNGBVCLRC3426-80-58 20:59:00 Test Item Value Reference Range Interpretation Comments Eosinophils # (test code 0.2 See_Comment [A utomated message] The = Eosinophils #) system [facility] h generated this result tra nsmitted reference range : <=0.5. The reference r ondina was not used to int erpret this result as normal/abnormal . [facility] CenterXxwfdwuDSODULWZGA6409-03-93 20:59:00 Test Item Value Reference Range Interpretation Comments Neutrophils # (test code = Neutrophils 4.1 1.5-8.1 #) [facility] CenterRlfignmPGFUHTHYET8159-82-61 20:59:00 Test Item Value Reference Range Interpretation Comments Basophils (test code = 0.8 See_Comment [Aut omated message] The Basophils) system which ge nerated this result tra nsmitted reference range : <=1.0. The reference r ondina was not used to int erpret this result as normal/abnormal . [facility] CenterZshqxpqGMDRKZTOSK9436-45-32 20:59:00 Test Item Value Reference Range Interpretation Comments Eosinophils (test code = 4.0 See_Comment [A utomated message] The Eosinophils) system which ge nerated this result tra nsmitted reference range : <=4.0. The reference r ondina was not used to int erpret this result as normal/abnormal . [facility] CenterKxevdyhGNIQULQIPJ9301-22-51 20:59:00 Test Item Value Reference Range Interpretation Comments Segs (test code = Segs) 68.7 45.0-75.0 [facility] CenterPkhdcyxFUNGGFBONQ5043-73-53 20:59:00 Test Item Value Reference Range Interpretation Comments Hypochrom (test code = 2+ (06/02/18 3:59 PM) Hypochrom) [facility] CenterErngfilLTKIXKFYSA2838-15-22 20:59:00 Test Item Value Reference Range Interpretation Comments Large Plt (test code Moderate *ABN*(06/02/18 = Large Plt) 3:59 PM) [facility] CenterAhkcnbfSRBDZSMLOO8873-10-41 20:59:00 Test Item Value Reference Range Interpretation Comments Lymphocytes # (test code = Lymphocytes 1.0 1.0-5.5 #) [facility] CenterXqwdzjhLCVLZSYGBV1177-84-06 20:59:00 Test Item Value Reference Range Interpretation Comments Monocytes # (test code 0.6 See_Comment [Aut omated message] The = Monocytes #) system which generated this result tra nsmitted reference range : <=0.8. The reference r ondina was not used to int erpret this result as normal/abnormal . [facility]CARD[facility] URJIQDY0106-00-38 20:59:00 Test Item Value Reference Range Interpretation Comments BNP (test code = BNP) 454 [facility] OCZODUI8666-06-16 20:59:00 Test Item Value Reference Range Interpretation Comments Troponin-I (test code no gt See_Comment [Auto mated message] The = Troponin-I) system which g enerated this result transmit garrett reference range : <=0.40. The reference r ondina was not used to interpr et this result as cassie l/abnormal. [facility] ZBDZGBO2744-84-79 20:59:00 Test Item Value Reference Range Interpretation Comments Total CK (test code = Total CK) 38 12-191 [facility] MichiganKiudjdxNKGUFXAJTIFP8570-58-59 20:59:00 Test Item Value Reference Range Interpretation Comments AGAP (test code = AGAP) 9.7 10.0-20.0 [facility] MichiganZbhkfgmPLVPWEYWFSKY2372-51-14 20:59:00 Test Item Value Reference Range Interpretation Comments B/C Ratio (test code = B/C Ratio) 11 1 6-25 [facility] MichiganSrnnwphKYLBGRFALKBM0553-45-56 20:59:00 Test Item Value Reference Range Interpretation Comments A/G Ratio (test code = A/G Ratio) 0.6 1 0.7-1.6 [facility] MichiganItonxxtSLVVUDITTQJL4986-52-09 20:59:00 Test Item Value Reference Range Interpretation Comments Globulin (test code = Globulin) 4.2 2.7-4.2 [facility] MichiganOjzgsfySQAEBBICLXHC3433-32-03 20:59:00 Test Item Value Reference Range Interpretation Comments Albumin Lvl (test code = Albumin Lvl) 2.7 3.5-5.0 [facility] MichiganKdfexniFHYLSBRNAXYS6443-54-91 20:59:00 Test Item Value Reference Range Interpretation Comments Glucose Lvl (test code = Glucose Lvl) 98 70-99 [facility] MichiganUemypwxDWTXYEYVTUBW7451-90-71 20:59:00 Test Item Value Reference Range Interpretation Comments CO2 (test code = CO2) 26 24-32 [facility] MichiganOrqurmiOWZKPUOFEJRX5679-36-91 20:59:00 Test Item Value Reference Range Interpretation Comments BUN (test code = BUN) 11 7-22 [facility] MichiganDjliihtERZKAOXGIDKC0608-96-08 20:59:00 Test Item Value Reference Range Interpretation Comments eGFR (test code = eGFR) 82 [facility] MichiganYplzbanQLUTJCDBYOVS6665-99-77 20:59:00 Test Item Value Reference Range Interpretation Comments AST (test code = AST) 6 See_Comment [Auto mated message] The system which ge nerated this result transmit garrett reference range : <=37. The reference range was not used to interpr et this result as cassie l/abnormal. [facility] MichiganWbbqsquIFQVBLXVNVWU3626-10-45 20:59:00 Test Item Value Reference Range Interpretation Comments ALT (test code = ALT) 13 See_Comment [Auto mated message] The system which ge nerated this result transmit garrett reference range : <=65. The reference range was not used to interpr et this result as cassie l/abnormal. [facility] MichiganJaksguyVMCDSOOPNLCL4695-11-94 20:59:00 Test Item Value Reference Range Interpretation Comments Creatinine Lvl (test code = Creatinine 1.00 0.50-1.40 Lvl) [facility] MichiganMwoxfufWTNUNUNGFTSC0587-62-49 20:59:00 Test Item Value Reference Range Interpretation Comments Bili Total (test code = Bili Total) 0.1 0.2-1.3 [facility] MichiganJwqwjutAZOLVVKDVZUZ9315-63-33 20:59:00 Test Item Value Reference Range Interpretation Comments Total Protein (test code = Total 6.9 6.4-8.4 Protein) [facility] MichiganMohdhemLCIYOZCIGPGR2922-06-49 20:59:00 Test Item Value Reference Range Interpretation Comments Calcium Lvl (test code = Calcium Lvl) 8.2 8.5-10.5 [facility]SbdxufuBQXFTJGRAPDO1468-71-29 20:59:00 Test Item Value Reference Range Interpretation Comments Alk Phos (test code = Alk Phos) 122 39-136 [facility] MichiganYndnumjHPACZZZPOTIO6278-64-32 20:59:00 Test Item Value Reference Range Interpretation Comments Sodium Lvl (test code = Sodium Lvl) 145 135-145 [facility] MichiganRxbtvrmXSJMPTUHZXTN0157-88-89 20:59:00 Test Item Value Reference Range Interpretation Comments Chloride Lvl (test code = Chloride Lvl) 113 95-109 [facility] MichiganDsnizkcZKXURWXYDIMA3242-16-94 20:59:00 Test Item Value Reference Range Interpretation Comments Potassium Lvl (test code = Potassium 3.7 3.5-5.1 Lvl) [facility] HospitalFgmqutsLLYEWTSKJK1118-79-85 20:59:00 Test Item Value Reference Range Interpretation Comments PT (test code = PT) 13.3 s 12.0-14.7 [facility] CenterOwceovsOHNDIKXARX7829-52-96 20:59:00 Test Item Value Reference Range Interpretation Comments INR (test code = INR) 1.03 1 0.85-1.17 [facility] CenterSkwieruUDSRJHHHKI3998-02-46 20:59:00 Test Item Value Reference Range Interpretation Comments PTT (test code = PTT) 31.9 s 22.9-35.8 [facility] CenterIrtduhiQQOIQELNOU1247-09-41 20:59:00 Test Item Value Reference Range Interpretation Comments MPV (test code = MPV) 8.1 7.4-10.4 [facility] CenterKflplesLEAHOOPLJA1059-18-54 20:59:00 Test Item Value Reference Range Interpretation Comments MCHC (test code = MCHC) 30.8 32.0-36.0 [facility] CenterBjqvtkpNKPZLQMZTU5455-85-77 20:59:00 Test Item Value Reference Range Interpretation Comments MCV (test code = MCV) 81.3 80.0-94.0 [facility] CenterZwenfenYEXJTRNHOC4121-07-87 20:59:00 Test Item Value Reference Range Interpretation Comments MCH (test code = MCH) 25.1 pg 27.0-31.0 [facility] CenterBfbteceVJXBZFBOJW8493-05-04 20:59:00 Test Item Value Reference Range Interpretation Comments RDW (test code = RDW) 18.6 11.5-14.5 [facility] CenterBresmbiHWZFQGZKQU1610-95-37 20:59:00 Test Item Value Reference Range Interpretation Comments RBC (test code = RBC) 3.52 4.70-6.10 [facility] CenterQiedjspKTAKKJSZAW0734-58-28 20:59:00 Test Item Value Reference Range Interpretation Comments Hgb (test code = Hgb) 8.8 14.0-18.0 [facility] CenterAvjasajRLWIWSQQXV7573-97-73 20:59:00 Test Item Value Reference Range Interpretation Comments WBC (test code = WBC) 6.0 3.7-10.4 [facility] CenterAtvrtksYEMGBMDFNV4870-51-86 20:59:00 Test Item Value Reference Range Interpretation Comments Hct (test code = Hct) 28.6 42.0-54.0 [facility] CenterLbmpqkmNGQBZPNNKD7048-19-49 20:59:00 Test Item Value Reference Range Interpretation Comments Platelet (test code = Platelet) 390 133-450 [facility] CenterYhyucfnQRZJEDARYZ5578-48-51 20:59:00 Test Item Value Reference Range Interpretation Comments Monocytes (test code = Monocytes) 10.1 2.0-12.0 [facility] CenterYzykievUFQSOXWODR0763-90-66 20:59:00 Test Item Value Reference Range Interpretation Comments Lymphocytes (test code = Lymphocytes) 16.4 20.0-40.0 [facility] CenterXtjzodpUCJBLOHPGV9916-59-93 20:59:00 Test Item Value Reference Range Interpretation Comments Anisocyte (test code = 1+ *ABN*(06/02/18 Anisocyte) 3:59 PM) [facility] CenterOpcbsamCOHJBHTQQE5810-58-62 20:59:00 Test Item Value Reference Range Interpretation Comments Eosinophils # (test code 0.2 See_Comment [A utomated message] The = Eosinophils #) system [facility] h generated this result tra nsmitted reference range : <=0.5. The reference r ondina was not used to int erpret this result as normal/abnormal . [facility] CenterRtwcqedGEGOKHWQWZ5004-09-24 20:59:00 Test Item Value Reference Range Interpretation Comments Neutrophils # (test code = Neutrophils 4.1 1.5-8.1 #) [facility] CenterQnbudrfXQUZGXLHEI7422-94-72 20:59:00 Test Item Value Reference Range Interpretation Comments Basophils (test code = 0.8 See_Comment [Aut omated message] The Basophils) system which ge nerated this result tra nsmitted reference range : <=1.0. The reference r ondina was not used to int erpret this result as normal/abnormal . [facility] CenterSqnpovbKBWOUINZTT0166-50-47 20:59:00 Test Item Value Reference Range Interpretation Comments Eosinophils (test code = 4.0 See_Comment [A utomated message] The Eosinophils) system which ge nerated this result tra nsmitted reference range : <=4.0. The reference r ondina was not used to int erpret this result as normal/abnormal . [facility] CenterSnqverkVVIYUMRSFP7501-72-11 20:59:00 Test Item Value Reference Range Interpretation Comments Segs (test code = Segs) 68.7 45.0-75.0 [facility] CenterTtmdvygCCJXVMNERT2596-06-21 20:59:00 Test Item Value Reference Range Interpretation Comments Hypochrom (test code = 2+ (06/02/18 3:59 PM) Hypochrom) [facility] CenterGvxkzlnNSLIOJHCFV8566-01-69 20:59:00 Test Item Value Reference Range Interpretation Comments Large Plt (test code Moderate *ABN*(06/02/18 = Large Plt) 3:59 PM) [facility] CenterMbozitxLRYGIKSACU3724-20-80 20:59:00 Test Item Value Reference Range Interpretation Comments Lymphocytes # (test code = Lymphocytes 1.0 1.0-5.5 #) [facility] CenterDbgljwdWEMJNHNKEV9064-99-37 20:59:00 Test Item Value Reference Range Interpretation Comments Monocytes # (test code 0.6 See_Comment [Aut omated message] The = Monocytes #) system which generated this result tra nsmitted reference range : <=0.8. The reference r ondina was not used to int erpret this result as normal/abnormal . [facility] HospitalNitroSellWESTERN [facility]OS[facility] YONFIQQ0150-85-96 20:59:00 Test Item Value Reference Range Interpretation Comments BNP (test code = BNP) 454 [facility] IZFJQRR6416-42-97 20:59:00 Test Item Value Reference Range Interpretation Comments Troponin-I (test code no gt See_Comment [Auto mated message] The = Troponin-I) system which g enerated this result transmit garrett reference range : <=0.40. The reference r ondina was not used to interpr et this result as cassie l/abnormal. [facility] WPUEINE9452-25-14 20:59:00 Test Item Value Reference Range Interpretation Comments Total CK (test code = Total CK) 38 12-191 [facility] MichiganScneaovIAQBXCACEHWO9480-69-72 20:59:00 Test Item Value Reference Range Interpretation Comments AGAP (test code = AGAP) 9.7 10.0-20.0 [facility] CampusCrqetwoKMUZFDFCKNXC9923-74-08 20:59:00 Test Item Value Reference Range Interpretation Comments B/C Ratio (test code = B/C Ratio) 11 1 6-25 [facility] MichiganMnbnjkuRTOMIBJMPTVU7610-98-26 20:59:00 Test Item Value Reference Range Interpretation Comments A/G Ratio (test code = A/G Ratio) 0.6 1 0.7-1.6 [facility] CampusHcqezhyWAZRRYPTRZST0703-04-53 20:59:00 Test Item Value Reference Range Interpretation Comments Globulin (test code = Globulin) 4.2 2.7-4.2 [facility] MichiganCiahpzpRPTHHSFRTRQQ4810-34-50 20:59:00 Test Item Value Reference Range Interpretation Comments Albumin Lvl (test code = Albumin Lvl) 2.7 3.5-5.0 [facility] MichiganRlzmnnpPPMMZFACOSGI5146-27-96 20:59:00 Test Item Value Reference Range Interpretation Comments Glucose Lvl (test code = Glucose Lvl) 98 70-99 [facility] MichiganNdorkzyQPUPBAAOUTZX6227-32-23 20:59:00 Test Item Value Reference Range Interpretation Comments CO2 (test code = CO2) 26 24-32 [facility] MichiganTfcdgjvZLBVRPRCLZIB2194-77-21 20:59:00 Test Item Value Reference Range Interpretation Comments BUN (test code = BUN) 11 7-22 [facility] MichiganYofevdxKPOVCNYDERCF6736-60-10 20:59:00 Test Item Value Reference Range Interpretation Comments eGFR (test code = eGFR) 82 [facility] MichiganVaabucoVPWFIBQWVSGU8965-93-70 20:59:00 Test Item Value Reference Range Interpretation Comments AST (test code = AST) 6 See_Comment [Auto mated message] The system which ge nerated this result transmit garrett reference range : <=37. The reference range was not used to interpr et this result as cassie l/abnormal. [facility] MichiganUbetoygFAVFPCXCZTAM4471-14-99 20:59:00 Test Item Value Reference Range Interpretation Comments ALT (test code = ALT) 13 See_Comment [Auto mated message] The system which ge nerated this result transmit garrett reference range : <=65. The reference range was not used to interpr et this result as cassie l/abnormal. [facility] MichiganQufhiqaWEISBHXTHXRX3824-08-90 20:59:00 Test Item Value Reference Range Interpretation Comments Creatinine Lvl (test code = Creatinine 1.00 0.50-1.40 Lvl) [facility] MichiganAgqrhhbCYKCBHZOTBIC3103-19-19 20:59:00 Test Item Value Reference Range Interpretation Comments Bili Total (test code = Bili Total) 0.1 0.2-1.3 [facility] MichiganKzrrugaCVPSUDCDTDGR1369-00-71 20:59:00 Test Item Value Reference Range Interpretation Comments Total Protein (test code = Total 6.9 6.4-8.4 Protein) [facility] MichiganWvifpvpKKQYIEBKRUCB6019-81-97 20:59:00 Test Item Value Reference Range Interpretation Comments Calcium Lvl (test code = Calcium Lvl) 8.2 8.5-10.5 [facility] MichiganSxdyfruNAYICBRPAWJU0845-83-52 20:59:00 Test Item Value Reference Range Interpretation Comments Alk Phos (test code = Alk Phos) 122 39-136 [facility] MichiganLiiosudOHPVVANONXCY3943-30-18 20:59:00 Test Item Value Reference Range Interpretation Comments Sodium Lvl (test code = Sodium Lvl) 145 135-145 [facility] MichiganQpmkdsoLSVWUUNDIHOB1202-75-79 20:59:00 Test Item Value Reference Range Interpretation Comments Chloride Lvl (test code = Chloride Lvl) 113 95-109 [facility] MichiganAykxlecANABPTOOZOKS1189-08-79 20:59:00 Test Item Value Reference Range Interpretation Comments Potassium Lvl (test code = Potassium 3.7 3.5-5.1 Lvl) [facility] CenterBgyrozeKCZCOQKURF3379-03-60 20:59:00 Test Item Value Reference Range Interpretation Comments PT (test code = PT) 13.3 s 12.0-14.7 [facility] CenterGutoyotSOLCCHECKQ9387-19-59 20:59:00 Test Item Value Reference Range Interpretation Comments INR (test code = INR) 1.03 1 0.85-1.17 [facility] CenterCxfypijCXKDJZXGGM3404-48-25 20:59:00 Test Item Value Reference Range Interpretation Comments PTT (test code = PTT) 31.9 s 22.9-35.8 [facility] CenterDdjuuhhVWYQBNYAOD1664-25-84 20:59:00 Test Item Value Reference Range Interpretation Comments MPV (test code = MPV) 8.1 7.4-10.4 [facility] CenterKytabwnSHIVCTYNBY6534-26-75 14:40:00 Test Item Value Reference Range Interpretation Comments Platelet (test code = Platelet) 233 133-450 [facility] CenterHlzobtuDGUYZKBQSH4887-14-45 14:40:00 Test Item Value Reference Range Interpretation Comments MPV (test code = MPV) 8.3 7.4-10.4 [facility] CenterAgomhsmMJVWRVFLBK7398-04-56 14:40:00 Test Item Value Reference Range Interpretation Comments MCHC (test code = MCHC) 32.2 32.0-36.0 [facility] CenterEaaiggxTNRTFDDDZN2705-11-82 14:40:00 Test Item Value Reference Range Interpretation Comments RDW (test code = RDW) 19.0 11.5-14.5 [facility] CenterLrmabjbDTKTAPWZHL3681-79-22 14:40:00 Test Item Value Reference Range Interpretation Comments Hgb (test code = Hgb) 8.8 14.0-18.0 [facility] CenterHtichbeTULENMGJNC1853-90-55 14:40:00 Test Item Value Reference Range Interpretation Comments RBC (test code = RBC) 3.40 4.70-6.10 [facility] CenterPxpymfeMJLEZNCKGW5803-42-43 14:40:00 Test Item Value Reference Range Interpretation Comments MCV (test code = MCV) 80.1 80.0-94.0 [facility] CenterGgijsdrBMWZZLDSVM3309-78-92 14:40:00 Test Item Value Reference Range Interpretation Comments MCH (test code = MCH) 25.8 pg 27.0-31.0 [facility] CenterCsxayrhDSSJJYPYJL4787-80-01 14:40:00 Test Item Value Reference Range Interpretation Comments Hct (test code = Hct) 27.3 42.0-54.0 [facility] CenterRagwpmtLGTOSPRNWZ3843-57-85 14:40:00 Test Item Value Reference Range Interpretation Comments WBC (test code = WBC) 7.3 3.7-10.4 [facility] CenterKxcrapbIMMKOWUQCB6375-06-47 14:40:00 Test Item Value Reference Range Interpretation Comments Basophils (test code = 1.3 See_Comment [Aut omated message] The Basophils) system which ge nerated this result tra nsmitted reference range : <=1.0. The reference r ondina was not used to int erpret this result as normal/abnormal . [facility] CenterFtentzzNTDBPVHLKF0618-58-72 14:40:00 Test Item Value Reference Range Interpretation Comments Neutrophils # (test code = Neutrophils 4.6 1.5-8.1 #) [facility] CenterTyisoafNPGXQPHMFM2063-15-42 14:40:00 Test Item Value Reference Range Interpretation Comments Eosinophils (test code = 7.5 See_Comment [A utomated message] The Eosinophils) system which ge nerated this result tra nsmitted reference range : <=4.0. The reference r ondina was not used to int erpret this result as normal/abnormal . [facility] CenterNfnuwkmSWBUIUMRRE7257-09-55 14:40:00 Test Item Value Reference Range Interpretation Comments Monocytes (test code = Monocytes) 8.8 2.0-12.0 [facility] CenterXntuubfEJPRGWWKHU6215-86-45 14:40:00 Test Item Value Reference Range Interpretation Comments Segs (test code = Segs) 63.4 45.0-75.0 [facility] CenterMaixhgoZIQYDMJEMS9293-02-27 14:40:00 Test Item Value Reference Range Interpretation Comments Lymphocytes (test code = Lymphocytes) 19.0 20.0-40.0 [facility] CenterDllqcueABNFNHGEMR0992-21-60 14:40:00 Test Item Value Reference Range Interpretation Comments Eosinophils # (test code 0.5 See_Comment [A utomated message] The = Eosinophils #) system whic h generated this result tra nsmitted reference range : <=0.5. The reference r ondina was not used to int erpret this result as normal/abnormal . [facility] CenterBqlnoubSHHJWMUBAU7315-81-07 14:40:00 Test Item Value Reference Range Interpretation Comments Basophils # (test code 0.1 See_Comment [Aut omated message] The = Basophils #) system which generated this result tra nsmitted reference range : <=0.2. The reference r ondina was not used to int erpret this result as normal/abnormal . [facility] CenterRyyjwhlACVOTMXPRT0114-31-43 14:40:00 Test Item Value Reference Range Interpretation Comments Monocytes # (test code 0.6 See_Comment [Aut omated message] The = Monocytes #) system which generated this result tra nsmitted reference range : <=0.8. The reference r ondina was not used to int erpret this result as normal/abnormal . [facility] CenterTnjyrqiSYESBDEIYI2501-34-47 14:40:00 Test Item Value Reference Range Interpretation Comments Lymphocytes # (test code = Lymphocytes 1.4 1.0-5.5 #) [facility] CenterYylomreVSCLLFRDCA7987-87-40 14:40:00 Test Item Value Reference Range Interpretation Comments Platelet (test code = Platelet) 233 133-450 [facility] CenterOernnikXGNLBOBOMP2932-72-73 14:40:00 Test Item Value Reference Range Interpretation Comments MPV (test code = MPV) 8.3 7.4-10.4 [facility] CenterZuqwypzJSMBVWNCDX8742-81-31 14:40:00 Test Item Value Reference Range Interpretation Comments MCHC (test code = MCHC) 32.2 32.0-36.0 [facility] CenterTytthvcSTRMMKLPJH3424-17-48 14:40:00 Test Item Value Reference Range Interpretation Comments RDW (test code = RDW) 19.0 11.5-14.5 [facility] CenterCmzaxlhIQBNFBVAZU6035-41-38 14:40:00 Test Item Value Reference Range Interpretation Comments Hgb (test code = Hgb) 8.8 14.0-18.0 [facility] CenterNnhwdkcQOANHEZGSV7059-04-96 14:40:00 Test Item Value Reference Range Interpretation Comments RBC (test code = RBC) 3.40 4.70-6.10 [facility] CenterYmdxzqdTGDNEHLADJ2956-23-18 14:40:00 Test Item Value Reference Range Interpretation Comments MCV (test code = MCV) 80.1 80.0-94.0 [facility] CenterNxzjladTJEXAVVNFP3867-36-43 14:40:00 Test Item Value Reference Range Interpretation Comments MCH (test code = MCH) 25.8 pg 27.0-31.0 [facility] CenterHxbiigrQGZXIHSRID9887-68-76 14:40:00 Test Item Value Reference Range Interpretation Comments Hct (test code = Hct) 27.3 42.0-54.0 [facility] CenterDmhknziCNRZWCIEKD1047-96-61 14:40:00 Test Item Value Reference Range Interpretation Comments WBC (test code = WBC) 7.3 3.7-10.4 [facility] CenterMzkrqjtCIHCLAZINS1903-78-85 14:40:00 Test Item Value Reference Range Interpretation Comments Basophils (test code = 1.3 See_Comment [Aut omated message] The Basophils) system which ge nerated this result tra nsmitted reference range : <=1.0. The reference r ondina was not used to int erpret this result as normal/abnormal . [facility] CenterJijemnkLFZJBXOAJW4281-35-43 14:40:00 Test Item Value Reference Range Interpretation Comments Neutrophils # (test code = Neutrophils 4.6 1.5-8.1 #) [facility] CenterXkpwssmZQMOIKGFOW6604-98-77 14:40:00 Test Item Value Reference Range Interpretation Comments Eosinophils (test code = 7.5 See_Comment [A utomated message] The Eosinophils) system which ge nerated this result tra nsmitted reference range : <=4.0. The reference r ondina was not used to int erpret this result as normal/abnormal . [facility] CenterGimigkxFAJGQGMTGS5769-14-29 14:40:00 Test Item Value Reference Range Interpretation Comments Monocytes (test code = Monocytes) 8.8 2.0-12.0 [facility] CenterPdwsuwiNJRKAXCOGJ3436-47-14 14:40:00 Test Item Value Reference Range Interpretation Comments Segs (test code = Segs) 63.4 45.0-75.0 [facility] CenterHflhrwzZZNNFOBXSM0772-04-86 14:40:00 Test Item Value Reference Range Interpretation Comments Lymphocytes (test code = Lymphocytes) 19.0 20.0-40.0 [facility] CenterNhlyksrRKLCGHUNBJ6759-83-36 14:40:00 Test Item Value Reference Range Interpretation Comments Eosinophils # (test code 0.5 See_Comment [A utomated message] The = Eosinophils #) system whic h generated this result tra nsmitted reference range : <=0.5. The reference r ondina was not used to int erpret this result as normal/abnormal . [facility] CenterXflefajPDLSPNTJPP7594-25-92 14:40:00 Test Item Value Reference Range Interpretation Comments Basophils # (test code 0.1 See_Comment [Aut omated message] The = Basophils #) system which generated this result tra nsmitted reference range : <=0.2. The reference r ondina was not used to int erpret this result as normal/abnormal . [facility] CenterUfnutocWXJLTIQUDT4203-88-07 14:40:00 Test Item Value Reference Range Interpretation Comments Monocytes # (test code 0.6 See_Comment [Aut omated message] The = Monocytes #) system which generated this result tra nsmitted reference range : <=0.8. The reference r ondina was not used to int erpret this result as normal/abnormal . [facility] CenterPdvbkujKNKVKPATFC8223-79-91 14:40:00 Test Item Value Reference Range Interpretation Comments Lymphocytes # (test code = Lymphocytes 1.4 1.0-5.5 #) [facility] CenterXegpyoqCCOOMLMAFX8961-36-45 14:40:00 Test Item Value Reference Range Interpretation Comments Platelet (test code = Platelet) 233 133-450 [facility] CenterXiouzxpVWZDISUNYJ1523-52-25 14:40:00 Test Item Value Reference Range Interpretation Comments MPV (test code = MPV) 8.3 7.4-10.4 [facility] CenterAdujbroKXWPPQESKQ5091-07-46 14:40:00 Test Item Value Reference Range Interpretation Comments MCHC (test code = MCHC) 32.2 32.0-36.0 [facility] CenterYazpupqDPPJBCLWEB5283-95-36 14:40:00 Test Item Value Reference Range Interpretation Comments RDW (test code = RDW) 19.0 11.5-14.5 [facility] CenterWqtkjphVDWBGWUWII0133-40-93 14:40:00 Test Item Value Reference Range Interpretation Comments Hgb (test code = Hgb) 8.8 14.0-18.0 [facility] CenterPsaxhqzVCSWTVUJKF4525-76-48 14:40:00 Test Item Value Reference Range Interpretation Comments RBC (test code = RBC) 3.40 4.70-6.10 [facility] CenterLxabvfxKBTFDTJPLQ6170-91-31 14:40:00 Test Item Value Reference Range Interpretation Comments MCV (test code = MCV) 80.1 80.0-94.0 [facility] CenterHorxwpnSTDJBXFGFD8747-20-11 14:40:00 Test Item Value Reference Range Interpretation Comments MCH (test code = MCH) 25.8 pg 27.0-31.0 [facility] CenterCloruygDRVGEZPQLE9247-21-96 14:40:00 Test Item Value Reference Range Interpretation Comments Hct (test code = Hct) 27.3 42.0-54.0 [facility] CenterTzundinNIVKTTHQIW1186-30-72 14:40:00 Test Item Value Reference Range Interpretation Comments WBC (test code = WBC) 7.3 3.7-10.4 [facility] CenterEiaduthXEKLINJWIF8527-18-67 14:40:00 Test Item Value Reference Range Interpretation Comments Basophils (test code = 1.3 See_Comment [Aut omated message] The Basophils) system which ge nerated this result tra nsmitted reference range : <=1.0. The reference r ondina was not used to int erpret this result as normal/abnormal . [facility] CenterZutngizZYHSEQQXOA8974-54-93 14:40:00 Test Item Value Reference Range Interpretation Comments Neutrophils # (test code = Neutrophils 4.6 1.5-8.1 #) [facility] CenterIncbifrTJWSVYSVXG9408-77-26 14:40:00 Test Item Value Reference Range Interpretation Comments Eosinophils (test code = 7.5 See_Comment [A utomated message] The Eosinophils) system which ge nerated this result tra nsmitted reference range : <=4.0. The reference r ondina was not used to int erpret this result as normal/abnormal . [facility] CenterEwajofaAHIJFEEDES1328-53-46 14:40:00 Test Item Value Reference Range Interpretation Comments Monocytes (test code = Monocytes) 8.8 2.0-12.0 [facility] CenterFdsjwavDLKQPOPOBG4959-46-98 14:40:00 Test Item Value Reference Range Interpretation Comments Segs (test code = Segs) 63.4 45.0-75.0 [facility] CenterIzwkghwKSIPBEDTDU2233-28-42 14:40:00 Test Item Value Reference Range Interpretation Comments Lymphocytes (test code = Lymphocytes) 19.0 20.0-40.0 [facility] CenterBylmliuAOGDTDFQXM8675-11-42 14:40:00 Test Item Value Reference Range Interpretation Comments Eosinophils # (test code 0.5 See_Comment [A utomated message] The = Eosinophils #) system whic h generated this result tra nsmitted reference range : <=0.5. The reference r ondina was not used to int erpret this result as normal/abnormal . [facility] CenterNtgslekXURMNEJIBM2144-53-94 14:40:00 Test Item Value Reference Range Interpretation Comments Basophils # (test code 0.1 See_Comment [Aut omated message] The = Basophils #) system which generated this result tra nsmitted reference range : <=0.2. The reference r ondina was not used to int erpret this result as normal/abnormal . [facility] CenterQzauzbhDCASRHZMFX0889-97-85 14:40:00 Test Item Value Reference Range Interpretation Comments Monocytes # (test code 0.6 See_Comment [Aut omated message] The = Monocytes #) system which generated this result tra nsmitted reference range : <=0.8. The reference r ondina was not used to int erpret this result as normal/abnormal . [facility] CenterHfutnvbQXOCMYQEWP1702-00-53 14:40:00 Test Item Value Reference Range Interpretation Comments Lymphocytes # (test code = Lymphocytes 1.4 1.0-5.5 #) [facility] CenterEmvzhweOZFDUNHGOY2599-33-29 14:40:00 Test Item Value Reference Range Interpretation Comments Platelet (test code = Platelet) 233 133-450 [facility] CenterZedgqjsWDCTJABMFP7011-01-74 14:40:00 Test Item Value Reference Range Interpretation Comments MPV (test code = MPV) 8.3 7.4-10.4 [facility] CenterVojfcyoGRXETZKOUI8883-07-69 14:40:00 Test Item Value Reference Range Interpretation Comments MCHC (test code = MCHC) 32.2 32.0-36.0 [facility] CenterCbsihofOWDANANRQA8933-14-30 14:40:00 Test Item Value Reference Range Interpretation Comments RDW (test code = RDW) 19.0 11.5-14.5 [facility] CenterCbpccchWESKKVGTUJ0692-73-54 14:40:00 Test Item Value Reference Range Interpretation Comments Hgb (test code = Hgb) 8.8 14.0-18.0 [facility] CenterVpkkghmWDJCLUCUCH2102-27-82 14:40:00 Test Item Value Reference Range Interpretation Comments RBC (test code = RBC) 3.40 4.70-6.10 [facility] CenterSlcortiFREWMKOGWG0624-93-24 14:40:00 Test Item Value Reference Range Interpretation Comments MCV (test code = MCV) 80.1 80.0-94.0 [facility] CenterAbxrsqjKTQYMFCEMG1818-35-97 14:40:00 Test Item Value Reference Range Interpretation Comments MCH (test code = MCH) 25.8 pg 27.0-31.0 [facility] CenterNvjsdevMLNJBZMDTB3688-12-65 14:40:00 Test Item Value Reference Range Interpretation Comments Hct (test code = Hct) 27.3 42.0-54.0 [facility] CenterFnhtdbrDOYAZYBVGF1923-36-59 14:40:00 Test Item Value Reference Range Interpretation Comments WBC (test code = WBC) 7.3 3.7-10.4 [facility] CenterNwwymobHQJCLHTXYZ8645-50-60 14:40:00 Test Item Value Reference Range Interpretation Comments Basophils (test code = 1.3 See_Comment [Aut omated message] The Basophils) system which ge nerated this result tra nsmitted reference range : <=1.0. The reference r ondina was not used to int erpret this result as normal/abnormal . [facility] CenterEmpddgaOMNFOFIHUH4224-35-29 14:40:00 Test Item Value Reference Range Interpretation Comments Neutrophils # (test code = Neutrophils 4.6 1.5-8.1 #) [facility] CenterBngaedhWIVAQNEUQD7290-26-22 14:40:00 Test Item Value Reference Range Interpretation Comments Eosinophils (test code = 7.5 See_Comment [A utomated message] The Eosinophils) system which ge nerated this result tra nsmitted reference range : <=4.0. The reference r ondina was not used to int erpret this result as normal/abnormal . [facility] CenterJejgpslSXEBMXCXUB4994-22-71 14:40:00 Test Item Value Reference Range Interpretation Comments Monocytes (test code = Monocytes) 8.8 2.0-12.0 [facility] CenterSgtwxxyILIFSSRRFU5268-08-68 14:40:00 Test Item Value Reference Range Interpretation Comments Segs (test code = Segs) 63.4 45.0-75.0 [facility] CenterVgzhwkjEBVDBLTKQH2289-07-47 14:40:00 Test Item Value Reference Range Interpretation Comments Lymphocytes (test code = Lymphocytes) 19.0 20.0-40.0 [facility] CenterCnktheoMVWFHBLJLX1353-04-06 14:40:00 Test Item Value Reference Range Interpretation Comments Eosinophils # (test code 0.5 See_Comment [A utomated message] The = Eosinophils #) system whic h generated this result tra nsmitted reference range : <=0.5. The reference r ondina was not used to int erpret this result as normal/abnormal . [facility] CenterAnmkryxWSIUYTQBZJ7348-74-05 14:40:00 Test Item Value Reference Range Interpretation Comments Basophils # (test code 0.1 See_Comment [Aut omated message] The = Basophils #) system which generated this result tra nsmitted reference range : <=0.2. The reference r ondina was not used to int erpret this result as normal/abnormal . [facility] CenterNxeklnlCHDSOXMIQZ8674-36-66 14:40:00 Test Item Value Reference Range Interpretation Comments Monocytes # (test code 0.6 See_Comment [Aut omated message] The = Monocytes #) system which generated this result tra nsmitted reference range : <=0.8. The reference r ondina was not used to int erpret this result as normal/abnormal . [facility] CenterSkbduffEOTLIGLOEI0797-36-63 14:40:00 Test Item Value Reference Range Interpretation Comments Lymphocytes # (test code = Lymphocytes 1.4 1.0-5.5 #) [facility] CenterUqzvffeLANNIBYMRZ6487-72-98 14:40:00 Test Item Value Reference Range Interpretation Comments Platelet (test code = Platelet) 233 133-450 [facility] CenterBpcnfxqZPUYOKSUMM5819-04-81 14:40:00 Test Item Value Reference Range Interpretation Comments MPV (test code = MPV) 8.3 7.4-10.4 [facility] CenterNhzldqlLRDUEHZJVP3426-50-30 14:40:00 Test Item Value Reference Range Interpretation Comments MCHC (test code = MCHC) 32.2 32.0-36.0 [facility] CenterGbxhuefLUTHQNNDKI4156-92-59 14:40:00 Test Item Value Reference Range Interpretation Comments RDW (test code = RDW) 19.0 11.5-14.5 [facility] CenterEyifxwrKWNDYMCYMB7312-34-42 14:40:00 Test Item Value Reference Range Interpretation Comments Hgb (test code = Hgb) 8.8 14.0-18.0 [facility] CenterNlerznoMEOGQYULIR6374-23-72 14:40:00 Test Item Value Reference Range Interpretation Comments RBC (test code = RBC) 3.40 4.70-6.10 [facility] CenterMdgpeusZZNOERASWG7980-30-01 14:40:00 Test Item Value Reference Range Interpretation Comments MCV (test code = MCV) 80.1 80.0-94.0 [facility] CenterThrbcwzRNDLBWIEKC1499-53-07 14:40:00 Test Item Value Reference Range Interpretation Comments MCH (test code = MCH) 25.8 pg 27.0-31.0 [facility] CenterLebwyfyZQJJSCCFSE9235-82-47 14:40:00 Test Item Value Reference Range Interpretation Comments Hct (test code = Hct) 27.3 42.0-54.0 [facility] CenterGbydoxuSSIISSPIEX8496-63-61 14:40:00 Test Item Value Reference Range Interpretation Comments WBC (test code = WBC) 7.3 3.7-10.4 [facility] CenterIwlgaxbBVZQLGNDQR4453-28-80 14:40:00 Test Item Value Reference Range Interpretation Comments Basophils (test code = Basophils) 1.3 <=1.0 [facility] CenterFofxfslPPFKMKDOTU9901-38-80 14:40:00 Test Item Value Reference Range Interpretation Comments Neutrophils # (test code = Neutrophils 4.6 1.5-8.1 #) [facility] CenterVjozisfRKWYJNBASC0717-22-52 14:40:00 Test Item Value Reference Range Interpretation Comments Eosinophils (test code = Eosinophils) 7.5 <=4.0 [facility] CenterRfjnszxUZQEUFQRAG1865-84-98 14:40:00 Test Item Value Reference Range Interpretation Comments Monocytes (test code = Monocytes) 8.8 2.0-12.0 [place] [id number] 14:40:00 Test Item Value Reference Range Interpretation Comments Segs (test code = Segs) 63.4 45.0-75.0 [facility] CenterRrcvxdvPVUCJLMSPY7065-75-82 14:40:00 Test Item Value Reference Range Interpretation Comments Lymphocytes (test code = Lymphocytes) 19.0 20.0-40.0 [place] [id number] 14:40:00 Test Item Value Reference Range Interpretation Comments Eosinophils # (test code = Eosinophils 0.5 <=0.5 #) [facility] CenterXccixayMNFHCIUKQP3388-63-53 14:40:00 Test Item Value Reference Range Interpretation Comments Basophils # (test code = Basophils #) 0.1 <=0.2 [place] [id number] 14:40:00 Test Item Value Reference Range Interpretation Comments Monocytes # (test code = Monocytes #) 0.6 <=0.8 [place] [id number] 14:40:00 Test Item Value Reference Range Interpretation Comments Lymphocytes # (test code = Lymphocytes 1.4 1.0-5.5 #) [facility]2019-03-19 11:30:00 Test Item Value Reference Range Interpretation Comments Calcium Lvl (test code = Calcium Lvl) 8.3 8.5-10.5 [facility]2019-03-19 11:30:00 Test Item Value Reference Range Interpretation Comments Potassium Lvl (test code = Potassium 4.3 3.5-5.1 Lvl) [facility]2019-03-19 11:30:00 Test Item Value Reference Range Interpretation Comments Sodium Lvl (test code = Sodium Lvl) 143 135-145 [facility]2019-03-19 11:30:00 Test Item Value Reference Range Interpretation Comments Chloride Lvl (test code = Chloride Lvl) 108 95-109 [facility]2019-03-19 11:30:00 Test Item Value Reference Range Interpretation Comments eGFR (test code = eGFR) 105 [facility]2019-03-19 11:30:00 Test Item Value Reference Range Interpretation Comments Creatinine Lvl (test code = Creatinine 0.66 0.50-1.40 Lvl) [facility]2019-03-19 11:30:00 Test Item Value Reference Range Interpretation Comments CO2 (test code = CO2) 29 -32 [facility]2019-03-19 11:30:00 Test Item Value Reference Range Interpretation Comments BUN (test code = BUN) 14 7-22 [facility]2019-03-19 11:30:00 Test Item Value Reference Range Interpretation Comments Glucose Lvl (test code = Glucose Lvl) 79 70-99 [facility]2019-03-19 11:30:00 Test Item Value Reference Range Interpretation Comments AGAP (test code = AGAP) 10.3 10.0-20.0 [place] [id number] 11:30:00 Test Item Value Reference Range Interpretation Comments Vanco Tr TND (test code = Vanco Tr TND) unk [place] [id number] 11:30:00 Test Item Value Reference Range Interpretation Comments Vanco Tr (test code = Vanco Tr) 12.8 [facility]2019-03-19 11:30:00 Test Item Value Reference Range Interpretation Comments Calcium Lvl (test code = Calcium Lvl) 8.3 8.5-10.5 [facility]2019-03-19 11:30:00 Test Item Value Reference Range Interpretation Comments Potassium Lvl (test code = Potassium 4.3 3.5-5.1 Lvl) [facility]2019-03-19 11:30:00 Test Item Value Reference Range Interpretation Comments Sodium Lvl (test code = Sodium Lvl) 143 135-145 [facility]2019-03-19 11:30:00 Test Item Value Reference Range Interpretation Comments Chloride Lvl (test code = Chloride Lvl) 108 95-109 [facility]2019-03-19 11:30:00 Test Item Value Reference Range Interpretation Comments eGFR (test code = eGFR) 105 [facility]2019-03-19 11:30:00 Test Item Value Reference Range Interpretation Comments Creatinine Lvl (test code = Creatinine 0.66 0.50-1.40 Lvl) [facility]2019-03-19 11:30:00 Test Item Value Reference Range Interpretation Comments CO2 (test code = CO2) 29 24-32 [facility]2019-03-19 11:30:00 Test Item Value Reference Range Interpretation Comments BUN (test code = BUN) 14 - [facility]2019-03-19 11:30:00 Test Item Value Reference Range Interpretation Comments Glucose Lvl (test code = Glucose Lvl) 79 70-99 [facility]2019-03-19 11:30:00 Test Item Value Reference Range Interpretation Comments AGAP (test code = AGAP) 10.3 10.0-20.0 [place] [id number] 11:30:00 Test Item Value Reference Range Interpretation Comments Vanco Tr TND (test code = Vanco Tr TND) unk [place] [id number] 11:30:00 Test Item Value Reference Range Interpretation Comments Vanco Tr (test code = Vanco Tr) 12.8 [facility]2019-03-19 11:30:00 Test Item Value Reference Range Interpretation Comments Calcium Lvl (test code = Calcium Lvl) 8.3 8.5-10.5 [facility]2019-03-19 11:30:00 Test Item Value Reference Range Interpretation Comments Potassium Lvl (test code = Potassium 4.3 3.5-5.1 Lvl) [facility]2019-03-19 11:30:00 Test Item Value Reference Range Interpretation Comments Sodium Lvl (test code = Sodium Lvl) 143 135-145 [facility]2019-03-19 11:30:00 Test Item Value Reference Range Interpretation Comments Chloride Lvl (test code = Chloride Lvl) 108 95-109 [facility]2019-03-19 11:30:00 Test Item Value Reference Range Interpretation Comments eGFR (test code = eGFR) 105 [facility]2019-03-19 11:30:00 Test Item Value Reference Range Interpretation Comments Creatinine Lvl (test code = Creatinine 0.66 0.50-1.40 [address]vl) [facility]2019-03-19 11:30:00 Test Item Value Reference Range Interpretation Comments CO2 (test code = CO2) 29 24-32 [facility]2019-03-19 11:30:00 Test Item Value Reference Range Interpretation Comments BUN (test code = BUN) 14 - [facility]2019-03-19 11:30:00 Test Item Value Reference Range Interpretation Comments Glucose Lvl (test code = Glucose Lvl) 79 70-99 [facility]2019-03-19 11:30:00 Test Item Value Reference Range Interpretation Comments AGAP (test code = AGAP) 10.3 10.0-20.0 [place] [id number] 11:30:00 Test Item Value Reference Range Interpretation Comments Vanco Tr TND (test code = Vanco Tr TND) unk [place] [id number] 11:30:00 Test Item Value Reference Range Interpretation Comments Vanco Tr (test code = Vanco Tr) 12.8 [facility]2019-03-19 11:30:00 Test Item Value Reference Range Interpretation Comments Calcium Lvl (test code = Calcium Lvl) 8.3 8.5-10.5 [facility]2019-03-19 11:30:00 Test Item Value Reference Range Interpretation Comments Potassium Lvl (test code = Potassium 4.3 3.5-5.1 Lvl) [facility]2019-03-19 11:30:00 Test Item Value Reference Range Interpretation Comments Sodium Lvl (test code = Sodium Lvl) 143 135-145 [facility]2019-03-19 11:30:00 Test Item Value Reference Range Interpretation Comments Chloride Lvl (test code = Chloride Lvl) 108 95-109 [facility]2019-03-19 11:30:00 Test Item Value Reference Range Interpretation Comments eGFR (test code = eGFR) 105 [facility]2019-03-19 11:30:00 Test Item Value Reference Range Interpretation Comments Creatinine Lvl (test code = Creatinine 0.66 0.50-1.40 Lvl) [facility]2019-03-19 11:30:00 Test Item Value Reference Range Interpretation Comments CO2 (test code = CO2) 29 24-32 [facility]2019-03-19 11:30:00 Test Item Value Reference Range Interpretation Comments BUN (test code = BUN) 14 7-22 [facility]2019-03-19 11:30:00 Test Item Value Reference Range Interpretation Comments Glucose Lvl (test code = Glucose Lvl) 79 70-99 [facility]2019-03-19 11:30:00 Test Item Value Reference Range Interpretation Comments AGAP (test code = AGAP) 10.3 10.0-20.0 [place] [id number] 11:30:00 Test Item Value Reference Range Interpretation Comments Vanco Tr TND (test code = Vanco Tr TND) unk [place] [id number] 11:30:00 Test Item Value Reference Range Interpretation Comments Vanco Tr (test code = Vanco Tr) 12.8 [facility]2019-03-19 11:30:00 Test Item Value Reference Range Interpretation Comments Calcium Lvl (test code = Calcium Lvl) 8.3 8.5-10.5 [facility]2019-03-19 11:30:00 Test Item Value Reference Range Interpretation Comments Potassium Lvl (test code = Potassium 4.3 3.5-5.1 Lvl) [facility]2019-03-19 11:30:00 Test Item Value Reference Range Interpretation Comments Sodium Lvl (test code = Sodium Lvl) 143 135-145 [facility]2019-03-19 11:30:00 Test Item Value Reference Range Interpretation Comments Chloride Lvl (test code = Chloride Lvl) 108 95-109 [facility]2019-03-19 11:30:00 Test Item Value Reference Range Interpretation Comments eGFR (test code = eGFR) 105 [facility]2019-03-19 11:30:00 Test Item Value Reference Range Interpretation Comments Creatinine Lvl (test code = Creatinine 0.66 0.50-1.40 Lvl) [facility]2019-03-19 11:30:00 Test Item Value Reference Range Interpretation Comments CO2 (test code = CO2) 29 24-32 [facility]2019-03-19 11:30:00 Test Item Value Reference Range Interpretation Comments BUN (test code = BUN) 14 7-22 [facility]2019-03-19 11:30:00 Test Item Value Reference Range Interpretation Comments Glucose Lvl (test code = Glucose Lvl) 79 70-99 [facility]2019-03-19 11:30:00 Test Item Value Reference Range Interpretation Comments AGAP (test code = AGAP) 10.3 10.0-20.0 [facility]QqjdntgEKZXEGOYVB6730-28-62 11:30:00 Test Item Value Reference Range Interpretation Comments Vanco Tr TND (test code = Vanco Tr TND) unk [facility] HospitalJnsbtdrZQZXKVSEAB5451-42-26 11:30:00 Test Item Value Reference Range Interpretation Comments Vanco Tr (test code = Vanco Tr) 12.8 [facility] [employer] [id number] 17:35:00 Test Item Value Reference Range Interpretation Comments Troponin-I (test code no gt See_Comment [Auto mated message] The = Troponin-I) system which g enerated this result transmit garrett reference range : <=0.40. The reference r ondina was not used to interpr et this result as cassie l/abnormal. [facility] [employer] [id number] 17:35:00 Test Item Value Reference Range Interpretation Comments Total CK (test code = Total CK) 33 [facility] [employer]2019-03-18 17:35:00 Test Item Value Reference Range Interpretation Comments Troponin-I (test code no gt See_Comment [Auto mated message] The = Troponin-I) system which g enerated this result transmit garrett reference range : <=0.40. The reference r ondina was not used to interpr et this result as cassie l/abnormal. [facility] [employer]2019-03-18 17:35:00 Test Item Value Reference Range Interpretation Comments Total CK (test code = Total CK) 33 [facility] [employer]2019-03-18 17:35:00 Test Item Value Reference Range Interpretation Comments Troponin-I (test code no gt See_Comment [Auto mated message] The = Troponin-I) system which g enerated this result transmit garrett reference range : <=0.40. The reference r ondina was not used to interpr et this result as cassie l/abnormal. [facility] [employer] [id number] 17:35:00 Test Item Value Reference Range Interpretation Comments Total CK (test code = Total CK) 33 191 [facility] [employer] [id number] 17:35:00 Test Item Value Reference Range Interpretation Comments Troponin-I (test code no gt See_Comment [Auto mated message] The = Troponin-I) system which g enerated this result transmit garrett reference range : <=0.40. The reference r ondina was not used to interpr et this result as cassie l/abnormal. [employer] [id number] 17:35:00 Test Item Value Reference Range Interpretation Comments Total CK (test code = Total CK) 33 [facility] [employer] [id number] 17:35:00 Test Item Value Reference Range Interpretation Comments Troponin-I (test code = Troponin-I) no gt <=0.40 [facility] [employer] [id number] 17:35:00 Test Item Value Reference Range Interpretation Comments Total CK (test code = Total CK) 33 [facility] [employer]2019-03-18 12:45:00 Test Item Value Reference Range Interpretation Comments Troponin-I (test code no gt See_Comment [Auto mated message] The = Troponin-I) system which g enerated this result transmit garrett reference range : <=0.40. The reference r ondina was not used to interpr et this result as cassie l/abnormal. [facility] [employer]2019-03-18 12:45:00 Test Item Value Reference Range Interpretation Comments Total CK (test code = Total CK) 33 [facility] [employer]2019-03-18 12:45:00 Test Item Value Reference Range Interpretation Comments Troponin-I (test code no gt See_Comment [Auto mated message] The = Troponin-I) system which g enerated this result transmit garrett reference range : <=0.40. The reference r ondina was not used to interpr et this result as cassie l/abnormal. [facility] [employer]2019-03-18 12:45:00 Test Item Value Reference Range Interpretation Comments Total CK (test code = Total CK) 33 [facility] [employer] [id number] 12:45:00 Test Item Value Reference Range Interpretation Comments Troponin-I (test code no gt See_Comment [Auto mated message] The = Troponin-I) system which g enerated this result transmit garrett reference range : <=0.40. The reference r ondina was not used to interpr et this result as cassie l/abnormal. [employer]2019-03-18 12:45:00 Test Item Value Reference Range Interpretation Comments Total CK (test code = Total CK) 33 [facility] [id number] 12:45:00 Test Item Value Reference Range Interpretation Comments Troponin-I (test code no gt See_Comment [Auto mated message] The = Troponin-I) system which g enerated this result transmit garrett reference range : <=0.40. The reference r ondina was not used to interpr et this result as cassie l/abnormal. [facility] 12:45:00 Test Item Value Reference Range Interpretation Comments Total CK (test code = Total CK) 33 [facility] HospitalForce Impact TechnologiesWE[facility] [id number] 12:45:00 Test Item Value Reference Range Interpretation Comments Troponin-I (test code = Troponin-I) no gt <=0.40 [facility] HospitalForce Impact TechnologiesWESTERN [facility] HOS[facility] [id number] 12:45:00 Test Item Value Reference Range Interpretation Comments Total CK (test code = Total CK) 33 [facility] HospitalSafrhdbWUWYVJILOOZL0330-87-45 06:11:00 Test Item Value Reference Range Interpretation Comments AGAP (test code = AGAP) 9.1 10.0-20.0 [facility] HospitalCpczcucXITNVLTPPUTY9619-24-22 06:11:00 Test Item Value Reference Range Interpretation Comments Sodium Lvl (test code = Sodium Lvl) 144 135-145 [facility] HospitalKckvxdlBNFHZIXTDRUW2020-33-01 06:11:00 Test Item Value Reference Range Interpretation Comments Chloride Lvl (test code = Chloride Lvl) 108 95-109 [facility] HospitalIlakuekKSBDIRXJQMFZ4158-46-11 06:11:00 Test Item Value Reference Range Interpretation Comments Potassium Lvl (test code = Potassium 4.1 3.5-5.1 Lvl) [facility] HospitalHjhdymwFDQOUOOYZFRI4602-87-62 06:11:00 Test Item Value Reference Range Interpretation Comments CO2 (test code = CO2) 31 24-32 [facility] CampusCwyosxqVVCOMXUBMUQX4312-47-78 06:11:00 Test Item Value Reference Range Interpretation Comments BUN (test code = BUN) 15 7-22 [facility] CampusRrrxeobVCQCZWHZTRGI5444-66-89 06:11:00 Test Item Value Reference Range Interpretation Comments Glucose Lvl (test code = Glucose Lvl) 96 70-99 [facility]JgpduyyULFOIREJROSI4312-59-10 06:11:00 Test Item Value Reference Range Interpretation Comments Creatinine Lvl (test code = Creatinine 0.72 0.50-1.40 Lvl) [facility]JykvproSZCZBDNOXFCD2350-29-62 06:11:00 Test Item Value Reference Range Interpretation Comments eGFR (test code = eGFR) 102 [facility]NcugqyxSDCXEERTQMYD1015-79-36 06:11:00 Test Item Value Reference Range Interpretation Comments Calcium Lvl (test code = Calcium Lvl) 8.3 8.5-10.5 [facility] CenterMtrbfhdQFJZVIQTWM9135-43-61 06:11:00 Test Item Value Reference Range Interpretation Comments MPV (test code = MPV) 8.0 7.4-10.4 [facility] CenterEaonhsxENMNPIAMZY5934-60-84 06:11:00 Test Item Value Reference Range Interpretation Comments Platelet (test code = Platelet) 217 133-450 [facility] CenterEpynelsBNTHLCEEQM6011-68-75 06:11:00 Test Item Value Reference Range Interpretation Comments RDW (test code = RDW) 18.6 11.5-14.5 [facility] CenterLzxoielEKNWHSRQMT6472-58-85 06:11:00 Test Item Value Reference Range Interpretation Comments MCH (test code = MCH) 26.0 pg 27.0-31.0 [facility] CenterLqalyewHYWVEQQJFC1142-89-53 06:11:00 Test Item Value Reference Range Interpretation Comments MCV (test code = MCV) 81.5 80.0-94.0 [facility] CenterFfrtiibXVJDAYTMKQ0973-23-92 06:11:00 Test Item Value Reference Range Interpretation Comments MCHC (test code = MCHC) 31.9 32.0-36.0 [facility] CenterCgltbfzPJWTTMIUJT6529-87-67 06:11:00 Test Item Value Reference Range Interpretation Comments RBC (test code = RBC) 3.16 4.70-6.10 [facility] CenterEcvxbecSXQPLFAPUY6925-28-00 06:11:00 Test Item Value Reference Range Interpretation Comments Hct (test code = Hct) 25.8 42.0-54.0 [facility] CenterLpjvuuaXSMEZXAQOM9000-28-64 06:11:00 Test Item Value Reference Range Interpretation Comments Hgb (test code = Hgb) 8.2 14.0-18.0 [facility] CenterOxxxnmfBKERCHWMHO3549-38-92 06:11:00 Test Item Value Reference Range Interpretation Comments WBC (test code = WBC) 7.5 3.7-10.4 [facility] CenterJgyrzcwUUFFQUCRDB2292-56-71 06:11:00 Test Item Value Reference Range Interpretation Comments Monocytes # (test code 0.7 See_Comment [Aut omated message] The = Monocytes #) system which generated this result tra nsmitted reference range : <=0.8. The reference r ondina was not used to int erpret this result as normal/abnormal . [facility] CenterCotygifGAVYLJNFAB3441-54-77 06:11:00 Test Item Value Reference Range Interpretation Comments Basophils # (test code 0.1 See_Comment [Aut omated message] The = Basophils #) system which generated this result tra nsmitted reference range : <=0.2. The reference r ondina was not used to int erpret this result as normal/abnormal . [facility] CenterOovibuaBDAPXKFMZB4325-71-50 06:11:00 Test Item Value Reference Range Interpretation Comments Eosinophils # (test code 0.4 See_Comment [A utomated message] The = Eosinophils #) system whic h generated this result tra nsmitted reference range : <=0.5. The reference r ondina was not used to int erpret this result as normal/abnormal . [facility] CenterNyktpluFBWZSMDLMN6587-99-10 06:11:00 Test Item Value Reference Range Interpretation Comments Lymphocytes # (test code = Lymphocytes 1.6 1.0-5.5 #) [facility] CenterFkiorhzYCYLTDUDYQ0303-11-39 06:11:00 Test Item Value Reference Range Interpretation Comments Neutrophils # (test code = Neutrophils 4.8 1.5-8.1 #) [facility] CenterZitcsnlFWKFBZTVJY2944-25-33 06:11:00 Test Item Value Reference Range Interpretation Comments Basophils (test code = 1.1 See_Comment [Aut omated message] The Basophils) system which ge nerated this result tra nsmitted reference range : <=1.0. The reference r ondina was not used to int erpret this result as normal/abnormal . [facility] CenterYtqrztkSTHDQHAPXQ0457-15-62 06:11:00 Test Item Value Reference Range Interpretation Comments Eosinophils (test code = 5.2 See_Comment [A utomated message] The Eosinophils) system which ge nerated this result tra nsmitted reference range : <=4.0. The reference r ondina was not used to int erpret this result as normal/abnormal . [facility] CenterUhubxrmPCVAWUIFVY6210-64-11 06:11:00 Test Item Value Reference Range Interpretation Comments Monocytes (test code = Monocytes) 9.1 2.0-12.0 [facility] CenterXkasuqkRYZCVUDZXX5309-23-35 06:11:00 Test Item Value Reference Range Interpretation Comments Lymphocytes (test code = Lymphocytes) 21.2 20.0-40.0 [facility] CenterIishsiqWPZSECAPXM6910-62-47 06:11:00 Test Item Value Reference Range Interpretation Comments Segs (test code = Segs) 63.4 45.0-75.0 [place] [id number] 06:11:00 Test Item Value Reference Range Interpretation Comments Vanco Tr TND (test code = Vanco Tr 0030 1 TND) [place] [id number] 06:11:00 Test Item Value Reference Range Interpretation Comments Vanco Tr (test code = Vanco Tr) 7.3 [facility]SmngxmePMFYAJLZVUYM9320-12-99 06:11:00 Test Item Value Reference Range Interpretation Comments AGAP (test code = AGAP) 9.1 10.0-20.0 [facility]MlgpbqdHWBWTVHDPMDO0281-10-45 06:11:00 Test Item Value Reference Range Interpretation Comments Sodium Lvl (test code = Sodium Lvl) 144 135-145 [facility]VgbfbscFCZFYWFILQGU3432-69-34 06:11:00 Test Item Value Reference Range Interpretation Comments Chloride Lvl (test code = Chloride Lvl) 108 95-109 [facility] MichiganHugcwnaMOWCCNAJKSKL5178-93-45 06:11:00 Test Item Value Reference Range Interpretation Comments Potassium Lvl (test code = Potassium 4.1 3.5-5.1 Lvl) [facility]JqsgczmISRWPGBFBVXU5754-06-22 06:11:00 Test Item Value Reference Range Interpretation Comments CO2 (test code = CO2) 31 24-32 [facility] MichiganWfbqzsdFUADYUDZWPMU4176-57-32 06:11:00 Test Item Value Reference Range Interpretation Comments BUN (test code = BUN) 15 7-22 [facility] MichiganBbuytqaXETABNINDOGS2641-79-66 06:11:00 Test Item Value Reference Range Interpretation Comments Glucose Lvl (test code = Glucose Lvl) 96 70-99 [facility] MichiganHzmrjipJMNGFKNEESSY8149-01-24 06:11:00 Test Item Value Reference Range Interpretation Comments Creatinine Lvl (test code = Creatinine 0.72 0.50-1.40 Lvl) [facility] MichiganDlinyiuJNJJLFUREQIL1291-76-15 06:11:00 Test Item Value Reference Range Interpretation Comments eGFR (test code = eGFR) 102 [facility] MichiganQtkfekyPLBMRDTIVCAV6718-96-08 06:11:00 Test Item Value Reference Range Interpretation Comments Calcium Lvl (test code = Calcium Lvl) 8.3 8.5-10.5 [facility] CenterAxrtvxjDVZEURJLBM2600-48-24 06:11:00 Test Item Value Reference Range Interpretation Comments MPV (test code = MPV) 8.0 7.4-10.4 [facility] CenterJyfbwqtVVBXBUNOCE3620-03-40 06:11:00 Test Item Value Reference Range Interpretation Comments Platelet (test code = Platelet) 217 133-450 [facility] CenterPhrdghvAJQJWGGHWE5415-61-99 06:11:00 Test Item Value Reference Range Interpretation Comments RDW (test code = RDW) 18.6 11.5-14.5 [facility] CenterLauviomMEUYWOHFBR8282-63-83 06:11:00 Test Item Value Reference Range Interpretation Comments MCH (test code = MCH) 26.0 pg 27.0-31.0 [facility] CenterYkmannnVUNQQPXVVV6469-54-26 06:11:00 Test Item Value Reference Range Interpretation Comments MCV (test code = MCV) 81.5 80.0-94.0 [facility] CenterJggqglpARVSSJCEGB7159-00-22 06:11:00 Test Item Value Reference Range Interpretation Comments MCHC (test code = MCHC) 31.9 32.0-36.0 [facility] CenterJlltxidJVTYQLSOVP9796-99-57 06:11:00 Test Item Value Reference Range Interpretation Comments RBC (test code = RBC) 3.16 4.70-6.10 [facility] CenterOsscpljCMWJFKWEBP7316-04-59 06:11:00 Test Item Value Reference Range Interpretation Comments Hct (test code = Hct) 25.8 42.0-54.0 [facility] CenterGyzsxzrAYRCETZOQH8694-61-03 06:11:00 Test Item Value Reference Range Interpretation Comments Hgb (test code = Hgb) 8.2 14.0-18.0 [place] [id number] 06:11:00 Test Item Value Reference Range Interpretation Comments WBC (test code = WBC) 7.5 3.7-10.4 [facility] CenterNhvvnjfWNEYPPKWYG7170-69-51 06:11:00 Test Item Value Reference Range Interpretation Comments Monocytes # (test code 0.7 See_Comment [Aut omated message] The = Monocytes #) system which generated this result tra nsmitted reference range : <=0.8. The reference r ondina was not used to int erpret this result as normal/abnormal . [facility] CenterSpsaupnVPSHCHRMAZ6313-61-16 06:11:00 Test Item Value Reference Range Interpretation Comments Basophils # (test code 0.1 See_Comment [Aut omated message] The = Basophils #) system which generated this result tra nsmitted reference range : <=0.2. The reference r ondina was not used to int erpret this result as normal/abnormal . [facility] CenterQgvjzjkOYTPIEAMNS8784-96-55 06:11:00 Test Item Value Reference Range Interpretation Comments Eosinophils # (test code 0.4 See_Comment [A utomated message] The = Eosinophils #) system whic h generated this result tra nsmitted reference range : <=0.5. The reference r ondina was not used to int erpret this result as normal/abnormal . [facility] CenterPiwiertJTLEOUQKPV9286-94-27 06:11:00 Test Item Value Reference Range Interpretation Comments Lymphocytes # (test code = Lymphocytes 1.6 1.0-5.5 #) [facility] CenterGoajthtFDJKKVPPPX7070-33-74 06:11:00 Test Item Value Reference Range Interpretation Comments Neutrophils # (test code = Neutrophils 4.8 1.5-8.1 #) [facility] CenterJgfpjqtQJQDHJPSWW6766-83-55 06:11:00 Test Item Value Reference Range Interpretation Comments Basophils (test code = 1.1 See_Comment [Aut omated message] The Basophils) system which ge nerated this result tra nsmitted reference range : <=1.0. The reference r ondina was not used to int erpret this result as normal/abnormal . [facility] CenterCmoixmzAKRQVXFNMY1110-77-96 06:11:00 Test Item Value Reference Range Interpretation Comments Eosinophils (test code = 5.2 See_Comment [A utomated message] The Eosinophils) system which ge nerated this result tra nsmitted reference range : <=4.0. The reference r ondina was not used to int erpret this result as normal/abnormal . [facility] CenterYtdhzhpHRIQGJCLSV0709-53-97 06:11:00 Test Item Value Reference Range Interpretation Comments Monocytes (test code = Monocytes) 9.1 2.0-12.0 [facility] CenterHidqgeoZUWUQSRGVA3629-20-37 06:11:00 Test Item Value Reference Range Interpretation Comments Lymphocytes (test code = Lymphocytes) 21.2 20.0-40.0 [facility] CenterIkjgizmEUDKHAMWMZ4278-66-21 06:11:00 Test Item Value Reference Range Interpretation Comments Segs (test code = Segs) 63.4 45.0-75.0 [place] [id number] 06:11:00 Test Item Value Reference Range Interpretation Comments Vanco Tr TND (test code = Vanco Tr 0030 1 TND) [place] [id number] 06:11:00 Test Item Value Reference Range Interpretation Comments Vanco Tr (test code = Vanco Tr) 7.3 [facility]HwfatwtLTZPWOBMQCXN9649-05-96 06:11:00 Test Item Value Reference Range Interpretation Comments AGAP (test code = AGAP) 9.1 10.0-20.0 [facility]MynzglrHWGPUDAUEUOI9417-57-44 06:11:00 Test Item Value Reference Range Interpretation Comments Sodium Lvl (test code = Sodium Lvl) 144 135-145 [facility]VytdowpFRHADKOXYXOU9700-11-99 06:11:00 Test Item Value Reference Range Interpretation Comments Chloride Lvl (test code = Chloride Lvl) 108 95-109 [facility]GxmahrrVGPXIZQWPITR0746-88-47 06:11:00 Test Item Value Reference Range Interpretation Comments Potassium Lvl (test code = Potassium 4.1 3.5-5.1 Lvl) [facility] MichiganTytouunQSKBGTTQKJZH8731-88-58 06:11:00 Test Item Value Reference Range Interpretation Comments CO2 (test code = CO2) 31 24-32 [facility]JjljluiWGVWUTMHYENP7293-79-01 06:11:00 Test Item Value Reference Range Interpretation Comments BUN (test code = BUN) 15 7-22 [facility]PenfzysEAXWXORHRQWI0264-49-51 06:11:00 Test Item Value Reference Range Interpretation Comments Glucose Lvl (test code = Glucose Lvl) 96 70-99 [facility]MveeyxyFGOQZRSFOMEV6814-35-10 06:11:00 Test Item Value Reference Range Interpretation Comments Creatinine Lvl (test code = Creatinine 0.72 0.50-1.40 Lvl) [facility]WohdyafLUUBGSQYDOGI2834-67-96 06:11:00 Test Item Value Reference Range Interpretation Comments eGFR (test code = eGFR) 102 [facility]ItlgdczQXAHAPGVONAE0045-86-68 06:11:00 Test Item Value Reference Range Interpretation Comments Calcium Lvl (test code = Calcium Lvl) 8.3 8.5-10.5 [facility] CenterCwiwcgdJCDSCITXVU4327-02-77 06:11:00 Test Item Value Reference Range Interpretation Comments MPV (test code = MPV) 8.0 7.4-10.4 [facility] CenterWnvnzzsBJXEACFDZU0153-30-18 06:11:00 Test Item Value Reference Range Interpretation Comments Platelet (test code = Platelet) 217 133-450 [facility] CenterVruhccxRCIPRMVLYE7076-79-33 06:11:00 Test Item Value Reference Range Interpretation Comments RDW (test code = RDW) 18.6 11.5-14.5 [facility] CenterMlupytgJICAUPAEIW4512-66-44 06:11:00 Test Item Value Reference Range Interpretation Comments MCH (test code = MCH) 26.0 pg 27.0-31.0 [facility] CenterZeunrtaBWEOAQMIUZ9552-52-94 06:11:00 Test Item Value Reference Range Interpretation Comments MCV (test code = MCV) 81.5 80.0-94.0 [facility] CenterYsjaqmlHVMMGZZTYT0426-76-78 06:11:00 Test Item Value Reference Range Interpretation Comments MCHC (test code = MCHC) 31.9 32.0-36.0 [facility] CenterCewswsqLSHUEQYPJF1459-86-77 06:11:00 Test Item Value Reference Range Interpretation Comments RBC (test code = RBC) 3.16 4.70-6.10 [facility] CenterGegptmhXTNGWVWJGM0482-69-63 06:11:00 Test Item Value Reference Range Interpretation Comments Hct (test code = Hct) 25.8 42.0-54.0 [facility] CenterQgdllkhQRUHMNSCEQ2254-59-20 06:11:00 Test Item Value Reference Range Interpretation Comments Hgb (test code = Hgb) 8.2 14.0-18.0 [facility] CenterOwjpejiOWRFGCPLKQ2932-42-39 06:11:00 Test Item Value Reference Range Interpretation Comments WBC (test code = WBC) 7.5 3.7-10.4 [facility] CenterWgdeazzOULMFKUZWG5968-79-60 06:11:00 Test Item Value Reference Range Interpretation Comments Monocytes # (test code 0.7 See_Comment [Aut omated message] The = Monocytes #) system which generated this result tra nsmitted reference range : <=0.8. The reference r ondina was not used to int erpret this result as normal/abnormal . [facility] CenterSdtwtoyDOWVOALJDS6846-14-52 06:11:00 Test Item Value Reference Range Interpretation Comments Basophils # (test code 0.1 See_Comment [Aut omated message] The = Basophils #) system which generated this result tra nsmitted reference range : <=0.2. The reference r ondina was not used to int erpret this result as normal/abnormal . [facility] CenterHxobmusBUPBIXQEWO3095-73-05 06:11:00 Test Item Value Reference Range Interpretation Comments Eosinophils # (test code 0.4 See_Comment [A utomated message] The = Eosinophils #) system whic h generated this result tra nsmitted reference range : <=0.5. The reference r ondina was not used to int erpret this result as normal/abnormal . [facility] CenterPjzyxjwRQUDSZPKMJ4926-45-30 06:11:00 Test Item Value Reference Range Interpretation Comments Lymphocytes # (test code = Lymphocytes 1.6 1.0-5.5 #) [facility] CenterAsyqsirPJHFNSUXXE6204-52-60 06:11:00 Test Item Value Reference Range Interpretation Comments Neutrophils # (test code = Neutrophils 4.8 1.5-8.1 #) [facility] CenterAxjnlhoNRBSVVHZET0025-79-81 06:11:00 Test Item Value Reference Range Interpretation Comments Basophils (test code = 1.1 See_Comment [Aut omated message] The Basophils) system which ge nerated this result tra nsmitted reference range : <=1.0. The reference r ondina was not used to int erpret this result as normal/abnormal . [facility] CenterZceowroALAWPVXIRU7542-10-02 06:11:00 Test Item Value Reference Range Interpretation Comments Eosinophils (test code = 5.2 See_Comment [A utomated message] The Eosinophils) system which ge nerated this result tra nsmitted reference range : <=4.0. The reference r ondina was not used to int erpret this result as normal/abnormal . [facility] CenterOfsnbolPILRICKXRC6871-36-34 06:11:00 Test Item Value Reference Range Interpretation Comments Monocytes (test code = Monocytes) 9.1 2.0-12.0 [facility] CenterNhepaoqWWIXLLOVYE2292-53-47 06:11:00 Test Item Value Reference Range Interpretation Comments Lymphocytes (test code = Lymphocytes) 21.2 20.0-40.0 [facility] CenterTcqhayaVESHJEIAED5615-13-03 06:11:00 Test Item Value Reference Range Interpretation Comments Segs (test code = Segs) 63.4 45.0-75.0 [place] [id number] 06:11:00 Test Item Value Reference Range Interpretation Comments Vanco Tr TND (test code = Vanco Tr 0030 1 TND) [place] [id number] 06:11:00 Test Item Value Reference Range Interpretation Comments Vanco Tr (test code = Vanco Tr) 7.3 [facility]XmkrebrWCURCKMRKKKT1731-41-31 06:11:00 Test Item Value Reference Range Interpretation Comments AGAP (test code = AGAP) 9.1 10.0-20.0 [facility]BjlqbzsZWWGVNMUFQGB9508-90-51 06:11:00 Test Item Value Reference Range Interpretation Comments Sodium Lvl (test code = Sodium Lvl) 144 135-145 [facility]LgfjodyHVYFHWGTYAAX9161-92-74 06:11:00 Test Item Value Reference Range Interpretation Comments Chloride Lvl (test code = Chloride Lvl) 108 95-109 [facility]HjuqvepDHNIHRSKLVDN5878-29-75 06:11:00 Test Item Value Reference Range Interpretation Comments Potassium Lvl (test code = Potassium 4.1 3.5-5.1 Lvl) [facility]AmdscqaCAGRLIGALYCC0473-88-77 06:11:00 Test Item Value Reference Range Interpretation Comments CO2 (test code = CO2) 31 24-32 [facility]EcejefkFSWEGOYSJJDA0515-18-74 06:11:00 Test Item Value Reference Range Interpretation Comments BUN (test code = BUN) 15 7-22 [facility]SoipjkxKNVYJOWFRBVK0732-12-11 06:11:00 Test Item Value Reference Range Interpretation Comments Glucose Lvl (test code = Glucose Lvl) 96 70-99 [facility]RrrgkarSMZJQUZJLPVA0533-59-88 06:11:00 Test Item Value Reference Range Interpretation Comments Creatinine Lvl (test code = Creatinine 0.72 0.50-1.40 Lvl) [facility]MujvpyxAWPGUHKATJWF8682-06-38 06:11:00 Test Item Value Reference Range Interpretation Comments eGFR (test code = eGFR) 102 [facility]FpsomzwLGIJAXFWJTBH0108-34-85 06:11:00 Test Item Value Reference Range Interpretation Comments Calcium Lvl (test code = Calcium Lvl) 8.3 8.5-10.5 [facility] CenterDigwdewGBEJGDPUKQ5014-70-02 06:11:00 Test Item Value Reference Range Interpretation Comments MPV (test code = MPV) 8.0 7.4-10.4 [facility] CenterEjaawhxXWMPUTMWLT8155-91-64 06:11:00 Test Item Value Reference Range Interpretation Comments Platelet (test code = Platelet) 217 133-450 [facility] CenterDzzxzpvOWKBIZFROA9190-44-24 06:11:00 Test Item Value Reference Range Interpretation Comments RDW (test code = RDW) 18.6 11.5-14.5 [facility] CenterIuzwdgiWVOMYXLCAX6579-39-01 06:11:00 Test Item Value Reference Range Interpretation Comments MCH (test code = MCH) 26.0 pg 27.0-31.0 [facility] CenterByiwbcuUYRAPYKTPA6339-12-26 06:11:00 Test Item Value Reference Range Interpretation Comments MCV (test code = MCV) 81.5 80.0-94.0 [facility] CenterVaqstalKWAYZLYAMR3608-02-50 06:11:00 Test Item Value Reference Range Interpretation Comments MCHC (test code = MCHC) 31.9 32.0-36.0 [facility] CenterRbkcryjKFVRYEOJRG6490-57-22 06:11:00 Test Item Value Reference Range Interpretation Comments RBC (test code = RBC) 3.16 4.70-6.10 [facility] CenterFsphaxtZJCBKQBGNB0264-35-16 06:11:00 Test Item Value Reference Range Interpretation Comments Hct (test code = Hct) 25.8 42.0-54.0 [facility] CenterKrtfsqoETZBNVRNJI4394-00-20 06:11:00 Test Item Value Reference Range Interpretation Comments Hgb (test code = Hgb) 8.2 14.0-18.0 [facility] CenterZekfaxfMZRLAYPTAB5289-81-73 06:11:00 Test Item Value Reference Range Interpretation Comments WBC (test code = WBC) 7.5 3.7-10.4 [facility] CenterFuyebicABCQUEQUZX7004-25-34 06:11:00 Test Item Value Reference Range Interpretation Comments Monocytes # (test code 0.7 See_Comment [Aut omated message] The = Monocytes #) system which generated this result tra nsmitted reference range : <=0.8. The reference r ondina was not used to int erpret this result as normal/abnormal . [facility] CenterGzgdjpaNNELKJIIZI1727-38-65 06:11:00 Test Item Value Reference Range Interpretation Comments Basophils # (test code 0.1 See_Comment [Aut omated message] The = Basophils #) system which generated this result tra nsmitted reference range : <=0.2. The reference r ondina was not used to int erpret this result as normal/abnormal . [facility] CenterSibcohpKGWGKIFBRW5259-69-06 06:11:00 Test Item Value Reference Range Interpretation Comments Eosinophils # (test code 0.4 See_Comment [A utomated message] The = Eosinophils #) system whic h generated this result tra nsmitted reference range : <=0.5. The reference r ondina was not used to int erpret this result as normal/abnormal . [facility] CenterFkncrdsPKUFPRRTXA7606-37-17 06:11:00 Test Item Value Reference Range Interpretation Comments Lymphocytes # (test code = Lymphocytes 1.6 1.0-5.5 #) [facility] CenterYwqioyoUCFYDIXSEB7299-10-53 06:11:00 Test Item Value Reference Range Interpretation Comments Neutrophils # (test code = Neutrophils 4.8 1.5-8.1 #) [facility] CenterMcfldvtJZLECVISBS0386-64-95 06:11:00 Test Item Value Reference Range Interpretation Comments Basophils (test code = 1.1 See_Comment [Aut omated message] The Basophils) system which ge nerated this result tra nsmitted reference range : <=1.0. The reference r ondina was not used to int erpret this result as normal/abnormal . [facility] CenterLqsamdrYBDSBHNAMA4573-89-30 06:11:00 Test Item Value Reference Range Interpretation Comments Eosinophils (test code = 5.2 See_Comment [A utomated message] The Eosinophils) system which ge nerated this result tra nsmitted reference range : <=4.0. The reference r ondina was not used to int erpret this result as normal/abnormal . [facility] CenterBcedpsqBSXPZZHBYU2554-03-91 06:11:00 Test Item Value Reference Range Interpretation Comments Monocytes (test code = Monocytes) 9.1 2.0-12.0 [facility] CenterSfqnbwkHVDPSPWZNB7899-88-15 06:11:00 Test Item Value Reference Range Interpretation Comments Lymphocytes (test code = Lymphocytes) 21.2 20.0-40.0 [facility] CenterMdnpyjzIKGENWNGPG0039-62-84 06:11:00 Test Item Value Reference Range Interpretation Comments Segs (test code = Segs) 63.4 45.0-75.0 [place] [id number] 06:11:00 Test Item Value Reference Range Interpretation Comments Vanco Tr TND (test code = Vanco Tr 0030 1 TND) [place] [id number] 06:11:00 Test Item Value Reference Range Interpretation Comments Vanco Tr (test code = Vanco Tr) 7.3 [facility]HbvkhmsELIBGPTTJOHL9721-45-60 06:11:00 Test Item Value Reference Range Interpretation Comments AGAP (test code = AGAP) 9.1 10.0-20.0 [facility]EbhwarnPUNKCDZNFKTB2039-24-78 06:11:00 Test Item Value Reference Range Interpretation Comments Sodium Lvl (test code = Sodium Lvl) 144 135-145 [facility]UfkdcrwTHKJFCTLESRO9076-55-72 06:11:00 Test Item Value Reference Range Interpretation Comments Chloride Lvl (test code = Chloride Lvl) 108 95-109 [facility]BipdpidUEIOPMXKGUUC5263-76-52 06:11:00 Test Item Value Reference Range Interpretation Comments Potassium Lvl (test code = Potassium 4.1 3.5-5.1 Lvl) [facility]ZcnyaqpCKGKFLSDAQNL7677-79-74 06:11:00 Test Item Value Reference Range Interpretation Comments CO2 (test code = CO2) 31 24-32 [facility]AgmgzvyPBLOVGNGZUYT5756-71-43 06:11:00 Test Item Value Reference Range Interpretation Comments BUN (test code = BUN) 15 7-22 [facility]UhalhsrVSOXWOEPCEVC0887-05-79 06:11:00 Test Item Value Reference Range Interpretation Comments Glucose Lvl (test code = Glucose Lvl) 96 70-99 [facility]GjqetrgYEBMEORTMWKU7031-12-44 06:11:00 Test Item Value Reference Range Interpretation Comments Creatinine Lvl (test code = Creatinine 0.72 0.50-1.40 Lvl) [facility]MdkytgpZZQWKWEZILRB3106-59-31 06:11:00 Test Item Value Reference Range Interpretation Comments eGFR (test code = eGFR) 102 [facility]CjhuofxNVTNPHNHNHJE4575-24-48 06:11:00 Test Item Value Reference Range Interpretation Comments Calcium Lvl (test code = Calcium Lvl) 8.3 8.5-10.5 [facility] CenterObxsiasZZIIXMGFRC1944-30-42 06:11:00 Test Item Value Reference Range Interpretation Comments MPV (test code = MPV) 8.0 7.4-10.4 [facility] CenterXogmjjsWRTLPTUZDO1231-44-64 06:11:00 Test Item Value Reference Range Interpretation Comments Platelet (test code = Platelet) 217 133-450 [facility] CenterDjicgplQDQWZCGGBO9266-22-51 06:11:00 Test Item Value Reference Range Interpretation Comments RDW (test code = RDW) 18.6 11.5-14.5 [facility] CenterQelueyyDQPKEZGAUO2994-13-44 06:11:00 Test Item Value Reference Range Interpretation Comments MCH (test code = MCH) 26.0 pg 27.0-31.0 [facility] CenterCulmgwbUXYEYQQZPY3952-76-54 06:11:00 Test Item Value Reference Range Interpretation Comments MCV (test code = MCV) 81.5 80.0-94.0 [facility] CenterPbkyjoaYHVITWNBXI7049-96-19 06:11:00 Test Item Value Reference Range Interpretation Comments MCHC (test code = MCHC) 31.9 32.0-36.0 [facility] CenterImdkwvsVUKRLYACNQ4861-67-16 06:11:00 Test Item Value Reference Range Interpretation Comments RBC (test code = RBC) 3.16 4.70-6.10 [facility] CenterLoxzbkkYTLMZOGXZC9502-39-81 06:11:00 Test Item Value Reference Range Interpretation Comments Hct (test code = Hct) 25.8 42.0-54.0 [facility] CenterCfufbatNSHSRRDAMJ5466-12-67 06:11:00 Test Item Value Reference Range Interpretation Comments Hgb (test code = Hgb) 8.2 14.0-18.0 [facility] CenterFfqynqeJJCISLNVTU0497-07-67 06:11:00 Test Item Value Reference Range Interpretation Comments WBC (test code = WBC) 7.5 3.7-10.4 [facility] CenterMuyoydzKONUKZQOWE9248-35-29 06:11:00 Test Item Value Reference Range Interpretation Comments Monocytes # (test code = Monocytes #) 0.7 <=0.8 [facility] CenterSabcqkpVVHNEBQYOP2162-41-45 06:11:00 Test Item Value Reference Range Interpretation Comments Basophils # (test code = Basophils #) 0.1 <=0.2 [facility] CenterJnejabbYWKSQSLVNW9371-69-77 06:11:00 Test Item Value Reference Range Interpretation Comments Eosinophils # (test code = Eosinophils 0.4 <=0.5 #) [facility] CenterCltyfhpNSMHBFQDXE1831-91-27 06:11:00 Test Item Value Reference Range Interpretation Comments Lymphocytes # (test code = Lymphocytes 1.6 1.0-5.5 #) [facility] CenterLnqwfxdGZTMBGKDRI6699-20-15 06:11:00 Test Item Value Reference Range Interpretation Comments Neutrophils # (test code = Neutrophils 4.8 1.5-8.1 #) [facility] CenterMmqrqfrOXZYNQWAGI5777-02-67 06:11:00 Test Item Value Reference Range Interpretation Comments Basophils (test code = Basophils) 1.1 <=1.0 [facility] CenterIjjcmjtFRVYIGEZZC4996-57-46 06:11:00 Test Item Value Reference Range Interpretation Comments Eosinophils (test code = Eosinophils) 5.2 <=4.0 [facility] CenterJgwayzrSAFWRTDSTQ0319-51-81 06:11:00 Test Item Value Reference Range Interpretation Comments Monocytes (test code = Monocytes) 9.1 2.0-12.0 [facility] CenterCczykroXAJEAGLOZB5016-85-26 06:11:00 Test Item Value Reference Range Interpretation Comments Lymphocytes (test code = Lymphocytes) 21.2 20.0-40.0 [facility] CenterVsuuygxWNVNRNHHZL0342-88-97 06:11:00 Test Item Value Reference Range Interpretation Comments Segs (test code = Segs) 63.4 45.0-75.0 [place] [id number] 06:11:00 Test Item Value Reference Range Interpretation Comments Vanco Tr TND (test code = Vanco Tr 0030 1 TND) [place] [id number] 06:11:00 Test Item Value Reference Range Interpretation Comments Vanco Tr (test code = Vanco Tr) 7.3 [facility] LDZIB2365-45-89 10:50:00 Test Item Value Reference Range Interpretation Comments Magnesium Lvl (test code = Magnesium 1.8 1.8-2.4 Lvl) [facility]2019-03-17 10:50:00 Test Item Value Reference Range Interpretation Comments Phosphorus (test code = Phosphorus) 3.3 2.5-4.5 [facility]MggmxavSZBCJTKUZVCG3894-50-68 10:50:00 Test Item Value Reference Range Interpretation Comments AGAP (test code = AGAP) 9.9 10.0-20.0 [facility]FwwduczKFPDNZPCWTPO0467-55-74 10:50:00 Test Item Value Reference Range Interpretation Comments Calcium Lvl (test code = Calcium Lvl) 7.9 8.5-10.5 [facility]MgbrzyaJUWTCJOPQCVV6857-96-37 10:50:00 Test Item Value Reference Range Interpretation Comments eGFR (test code = eGFR) 101 [facility]LrujpzpXXHQPIIVYVKZ0435-14-51 10:50:00 Test Item Value Reference Range Interpretation Comments Creatinine Lvl (test code = Creatinine 0.72 0.50-1.40 Lvl) [facility]JftfmvwSFSESFTVTXPS4249-77-60 10:50:00 Test Item Value Reference Range Interpretation Comments Sodium Lvl (test code = Sodium Lvl) 143 135-145 [facility]LjtblsqSOTQGZUVKWUI9144-05-76 10:50:00 Test Item Value Reference Range Interpretation Comments Potassium Lvl (test code = Potassium 3.9 3.5-5.1 Lvl) [facility]WkfnkteLEIZEMHODFMP2502-86-37 10:50:00 Test Item Value Reference Range Interpretation Comments Chloride Lvl (test code = Chloride Lvl) 109 95-109 [facility]AmphrvlUEJYPTYHIOFK9815-08-45 10:50:00 Test Item Value Reference Range Interpretation Comments BUN (test code = BUN) 15 7-22 [facility]MzfbvqxSJCOJMOVIDDT5455-75-32 10:50:00 Test Item Value Reference Range Interpretation Comments CO2 (test code = CO2) 28 24-32 [facility]DczplojZDIXRHDFNHYV9189-03-38 10:50:00 Test Item Value Reference Range Interpretation Comments Glucose Lvl (test code = Glucose Lvl) 121 70-99 [facility] CenterJocrutyPKAIGZEJXJ5569-60-19 10:50:00 Test Item Value Reference Range Interpretation Comments Basophils # (test code 0.1 See_Comment [Aut omated message] The = Basophils #) system which generated this result tra nsmitted reference range : <=0.2. The reference r ondina was not used to int erpret this result as normal/abnormal . [facility] CenterOrbmhtxMPWWLBZDDV7126-38-40 10:50:00 Test Item Value Reference Range Interpretation Comments Neutrophils # (test code = Neutrophils 4.6 1.5-8.1 #) [facility] CenterShxidivPESEEPBDCS1399-37-89 10:50:00 Test Item Value Reference Range Interpretation Comments Lymphocytes # (test code = Lymphocytes 1.5 1.0-5.5 #) [facility] CenterHiqmarxRWRZWCXLWR2375-44-62 10:50:00 Test Item Value Reference Range Interpretation Comments Lymphocytes (test code = Lymphocytes) 22.0 20.0-40.0 [facility] CenterIhlinnrWHPJCYBZVO5998-47-54 10:50:00 Test Item Value Reference Range Interpretation Comments Monocytes (test code = Monocytes) 6.9 2.0-12.0 [facility] CenterWfdzfqtZWKFQXFISK7204-15-99 10:50:00 Test Item Value Reference Range Interpretation Comments Basophils (test code = 0.7 See_Comment [Aut omated message] The Basophils) system which ge nerated this result tra nsmitted reference range : <=1.0. The reference r ondina was not used to int erpret this result as normal/abnormal . [facility] CenterYyuodjcQFCMVWSYUF2808-46-73 10:50:00 Test Item Value Reference Range Interpretation Comments Eosinophils (test code = 4.5 See_Comment [A utomated message] The Eosinophils) system which ge nerated this result tra nsmitted reference range : <=4.0. The reference r ondina was not used to int erpret this result as normal/abnormal . [facility] CenterEhjsvvzGVWIUAJSXP9096-13-25 10:50:00 Test Item Value Reference Range Interpretation Comments Monocytes # (test code 0.5 See_Comment [Aut omated message] The = Monocytes #) system which generated this result tra nsmitted reference range : <=0.8. The reference r ondina was not used to int erpret this result as normal/abnormal . [facility] CenterWyapamhXJFSWOKPMG1491-54-30 10:50:00 Test Item Value Reference Range Interpretation Comments Eosinophils # (test code 0.3 See_Comment [A utomated message] The = Eosinophils #) system whic h generated this result tra nsmitted reference range : <=0.5. The reference r ondina was not used to int erpret this result as normal/abnormal . [facility] CenterMwmjvgdWMRQFAMTPY9291-07-86 10:50:00 Test Item Value Reference Range Interpretation Comments Segs (test code = Segs) 65.9 45.0-75.0 [facility] CenterGhwlnecMKLZZWVDTC0458-36-00 10:50:00 Test Item Value Reference Range Interpretation Comments MCH (test code = MCH) 26.3 pg 27.0-31.0 [facility] CenterXzrtpdzVZNCIZHDMP6328-70-35 10:50:00 Test Item Value Reference Range Interpretation Comments MCHC (test code = MCHC) 32.2 32.0-36.0 [facility] CenterSsmckpbVRRYJYHMGM7692-41-00 10:50:00 Test Item Value Reference Range Interpretation Comments Hct (test code = Hct) 24.2 42.0-54.0 [facility] CenterOfgfijpUALSVBZWCR5209-39-44 10:50:00 Test Item Value Reference Range Interpretation Comments MCV (test code = MCV) 81.7 80.0-94.0 [facility] CenterWtlyvrsJRVELFSZCH7636-45-29 10:50:00 Test Item Value Reference Range Interpretation Comments Platelet (test code = Platelet) 200 133-450 [facility] CenterMmcezzuWBMOOTAFFY8731-15-14 10:50:00 Test Item Value Reference Range Interpretation Comments RDW (test code = RDW) 18.4 11.5-14.5 [facility] [facility] CenterGgnqbzeSQGFZEOXLQ7041-13-17 10:50:00 Test Item Value Reference Range Interpretation Comments MPV (test code = MPV) 8.2 7.4-10.4 [facility] CenterEixydryBKTYOCZYMS6834-69-22 10:50:00 Test Item Value Reference Range Interpretation Comments RBC (test code = RBC) 2.96 4.70-6.10 [facility] CenterUlpipnjCYIIFPCKSZ9517-90-49 10:50:00 Test Item Value Reference Range Interpretation Comments Hgb (test code = Hgb) 7.8 14.0-18.0 [facility] CenterDkqeynfBYJGBHZVZK7893-21-14 10:50:00 Test Item Value Reference Range Interpretation Comments WBC (test code = WBC) 7.0 3.7-10.4 [facility]XtljqwiZMGOLFNNME8934-22-96 10:50:00 Test Item Value Reference Range Interpretation Comments Vanco Tr (test code = Vanco Tr) 21.8 [facility] HospitalBfrhmbaWIZRDNALHB1491-66-41 10:50:00 Test Item Value Reference Range Interpretation Comments Vanco Tr TND (test code = Vanco Tr TND) unk [facility] HospitalSyntilla Medical ZZNNC8285-99-21 10:50:00 Test Item Value Reference Range Interpretation Comments Magnesium Lvl (test code = Magnesium 1.8 1.8-2.4 Lvl) [facility] HospitalSyn[facility] QJFPC4357-66-39 10:50:00 Test Item Value Reference Range Interpretation Comments Phosphorus (test code = Phosphorus) 3.3 2.5-4.5 [facility]XmlloolMMECIHATBTBI7347-30-02 10:50:00 Test Item Value Reference Range Interpretation Comments AGAP (test code = AGAP) 9.9 10.0-20.0 [facility] MichiganHwfnojgMZSOTQDSXWXR0147-17-39 10:50:00 Test Item Value Reference Range Interpretation Comments Calcium Lvl (test code = Calcium Lvl) 7.9 8.5-10.5 [facility] MichiganSiwzmvdTHASWUAAEMPI8975-04-28 10:50:00 Test Item Value Reference Range Interpretation Comments eGFR (test code = eGFR) 101 [facility] MichiganTwgjjhaUABAWYIHCVYD0741-75-08 10:50:00 Test Item Value Reference Range Interpretation Comments Creatinine Lvl (test code = Creatinine 0.72 0.50-1.40 Lvl) [facility] MichiganJwelqcjEMHOWTROVNCP9492-44-29 10:50:00 Test Item Value Reference Range Interpretation Comments Sodium Lvl (test code = Sodium Lvl) 143 135-145 [facility] MichiganYscmgduMLLNZSFHJQHV6712-37-96 10:50:00 Test Item Value Reference Range Interpretation Comments Potassium Lvl (test code = Potassium 3.9 3.5-5.1 Lvl) [facility]PpbewsoXDRDQJUMTIJL8321-44-84 10:50:00 Test Item Value Reference Range Interpretation Comments Chloride Lvl (test code = Chloride Lvl) 109 95-109 [facility] MichiganNbaefphLBBIPGUUKXJR3122-68-85 10:50:00 Test Item Value Reference Range Interpretation Comments BUN (test code = BUN) 15 7-22 [facility] MichiganAlmyayyXBYOPKRQHIOY0929-65-37 10:50:00 Test Item Value Reference Range Interpretation Comments CO2 (test code = CO2) 28 24-32 [facility] MichiganBrhogzrKDPQFKIZSZKS3101-16-79 10:50:00 Test Item Value Reference Range Interpretation Comments Glucose Lvl (test code = Glucose Lvl) 121 70-99 [facility] CenterYvwqcniTWCDOPYPXK4033-60-01 10:50:00 Test Item Value Reference Range Interpretation Comments Basophils # (test code 0.1 See_Comment [Aut omated message] The = Basophils #) system which generated this result tra nsmitted reference range : <=0.2. The reference r ondina was not used to int erpret this result as normal/abnormal . [facility] CenterAzubaevMKTZUONHVQ8538-01-10 10:50:00 Test Item Value Reference Range Interpretation Comments Neutrophils # (test code = Neutrophils 4.6 1.5-8.1 #) [facility] CenterPonafpwCAJWWJBJJO9652-20-35 10:50:00 Test Item Value Reference Range Interpretation Comments Lymphocytes # (test code = Lymphocytes 1.5 1.0-5.5 #) [facility] CenterPhxrnxjWJVJSNLPYZ2712-08-39 10:50:00 Test Item Value Reference Range Interpretation Comments Lymphocytes (test code = Lymphocytes) 22.0 20.0-40.0 [facility] CenterEcveyglVMYWXEDCXB0863-03-81 10:50:00 Test Item Value Reference Range Interpretation Comments Monocytes (test code = Monocytes) 6.9 2.0-12.0 [facility] CenterNnpkzexYCZXTQFGQR1704-70-95 10:50:00 Test Item Value Reference Range Interpretation Comments Basophils (test code = 0.7 See_Comment [Aut omated message] The Basophils) system which ge nerated this result tra nsmitted reference range : <=1.0. The reference r ondina was not used to int erpret this result as normal/abnormal . [facility] CenterIrnefopDIIHDTFLFF7069-54-32 10:50:00 Test Item Value Reference Range Interpretation Comments Eosinophils (test code = 4.5 See_Comment [A utomated message] The Eosinophils) system which ge nerated this result tra nsmitted reference range : <=4.0. The reference r ondina was not used to int erpret this result as normal/abnormal . [facility] CenterGllpoxgZHBMWBQJZQ9622-19-72 10:50:00 Test Item Value Reference Range Interpretation Comments Monocytes # (test code 0.5 See_Comment [Aut omated message] The = Monocytes #) system which generated this result tra nsmitted reference range : <=0.8. The reference r ondina was not used to int erpret this result as normal/abnormal . [facility] CenterAdbtxiwAXEAZDOECS2307-00-40 10:50:00 Test Item Value Reference Range Interpretation Comments Eosinophils # (test code 0.3 See_Comment [A utomated message] The = Eosinophils #) system whic h generated this result tra nsmitted reference range : <=0.5. The reference r ondina was not used to int erpret this result as normal/abnormal . [facility] CenterExnvoiyKKNFSXHDAC4052-45-36 10:50:00 Test Item Value Reference Range Interpretation Comments Segs (test code = Segs) 65.9 45.0-75.0 [facility] CenterItgocqbNSBCDPTUGD9186-99-22 10:50:00 Test Item Value Reference Range Interpretation Comments MCH (test code = MCH) 26.3 pg 27.0-31.0 [facility] CenterAvrmfjlUADOFQHRIY9602-17-00 10:50:00 Test Item Value Reference Range Interpretation Comments MCHC (test code = MCHC) 32.2 32.0-36.0 [facility] CenterVoxomjfYYSSCANFPQ6985-53-48 10:50:00 Test Item Value Reference Range Interpretation Comments Hct (test code = Hct) 24.2 42.0-54.0 [facility] CenterUxzqusfQZCQHGLFWT7116-05-66 10:50:00 Test Item Value Reference Range Interpretation Comments MCV (test code = MCV) 81.7 80.0-94.0 [facility] CenterYpjjrgwXMASCRMRGK9475-95-83 10:50:00 Test Item Value Reference Range Interpretation Comments Platelet (test code = Platelet) 200 133-450 [facility] CenterGflndibUVYKWWJSDC1799-19-57 10:50:00 Test Item Value Reference Range Interpretation Comments RDW (test code = RDW) 18.4 11.5-14.5 [facility] CenterCyxkhrqZRHOAQRDVL9736-90-58 10:50:00 Test Item Value Reference Range Interpretation Comments MPV (test code = MPV) 8.2 7.4-10.4 [facility] CenterEqyzhohEDXDSVABZM6349-62-98 10:50:00 Test Item Value Reference Range Interpretation Comments RBC (test code = RBC) 2.96 4.70-6.10 [facility] CenterNvplotnNWEKHNTHEP1469-04-55 10:50:00 Test Item Value Reference Range Interpretation Comments Hgb (test code = Hgb) 7.8 14.0-18.0 [facility] CenterLnfewkfAIVCBRFYXQ8580-81-31 10:50:00 Test Item Value Reference Range Interpretation Comments WBC (test code = WBC) 7.0 3.7-10.4 [place] [id number] 10:50:00 Test Item Value Reference Range Interpretation Comments Vanco Tr (test code = Vanco Tr) 21.8 [place] [id number] 10:50:00 Test Item Value Reference Range Interpretation Comments Vanco Tr TND (test code = Vanco Tr TND) unk [facility]2019-03-17 10:50:00 Test Item Value Reference Range Interpretation Comments Magnesium Lvl (test code = Magnesium 1.8 1.8-2.4 Lvl) [facility]2019-03-17 10:50:00 Test Item Value Reference Range Interpretation Comments Phosphorus (test code = Phosphorus) 3.3 2.5-4.5 [facility]IgmofcuTWAQXYJCJSLI6100-88-33 10:50:00 Test Item Value Reference Range Interpretation Comments AGAP (test code = AGAP) 9.9 10.0-20.0 [facility]KgjhaanJGZQDPVERECO7940-23-24 10:50:00 Test Item Value Reference Range Interpretation Comments Calcium Lvl (test code = Calcium Lvl) 7.9 8.5-10.5 [facility] MichiganDgbdqcrSBJDPVKPBAPI8899-94-35 10:50:00 Test Item Value Reference Range Interpretation Comments eGFR (test code = eGFR) 101 [facility]XkikvbgGOGBFDTABTPM8248-28-60 10:50:00 Test Item Value Reference Range Interpretation Comments Creatinine Lvl (test code = Creatinine 0.72 0.50-1.40 Lvl) [facility] MichiganTwwolooWQZTEBNSYDGX1482-38-13 10:50:00 Test Item Value Reference Range Interpretation Comments Sodium Lvl (test code = Sodium Lvl) 143 135-145 [facility] MichiganBabzgiuNVIPPOLCDKPM6087-76-24 10:50:00 Test Item Value Reference Range Interpretation Comments Potassium Lvl (test code = Potassium 3.9 3.5-5.1 Lvl) [facility] MichiganQaayzeaIITPEUEWKLGC1613-73-85 10:50:00 Test Item Value Reference Range Interpretation Comments Chloride Lvl (test code = Chloride Lvl) 109 95-109 [facility] MichiganJfemvbmULJVEDFKCQWF8100-81-56 10:50:00 Test Item Value Reference Range Interpretation Comments BUN (test code = BUN) 15 7-22 [facility] MichiganVamhnobBPVCWNZAXCNX2392-56-66 10:50:00 Test Item Value Reference Range Interpretation Comments CO2 (test code = CO2) 28 24-32 [facility] MichiganTitwmemJRHDUHLSOCVJ5990-68-64 10:50:00 Test Item Value Reference Range Interpretation Comments Glucose Lvl (test code = Glucose Lvl) 121 70-99 [facility] CenterCngwspgKLMTYVCSNN9703-60-95 10:50:00 Test Item Value Reference Range Interpretation Comments Basophils # (test code 0.1 See_Comment [Aut omated message] The = Basophils #) system which generated this result tra nsmitted reference range : <=0.2. The reference r ondina was not used to int erpret this result as normal/abnormal . [facility] CenterNwqsxjfMQKATHTYFD0585-03-73 10:50:00 Test Item Value Reference Range Interpretation Comments Neutrophils # (test code = Neutrophils 4.6 1.5-8.1 #) [facility] CenterPjnoxmcORUSPUZWGC8715-66-70 10:50:00 Test Item Value Reference Range Interpretation Comments Lymphocytes # (test code = Lymphocytes 1.5 1.0-5.5 #) [facility] CenterDnqwedyJGEZQRSBSM9714-95-12 10:50:00 Test Item Value Reference Range Interpretation Comments Lymphocytes (test code = Lymphocytes) 22.0 20.0-40.0 [facility] CenterRqzaxdfYUFGXVAZVX5147-07-22 10:50:00 Test Item Value Reference Range Interpretation Comments Monocytes (test code = Monocytes) 6.9 2.0-12.0 [facility] CenterNlpeuwtBATCKMFQYS5082-26-16 10:50:00 Test Item Value Reference Range Interpretation Comments Basophils (test code = 0.7 See_Comment [Aut omated message] The Basophils) system which ge nerated this result tra nsmitted reference range : <=1.0. The reference r ondina was not used to int erpret this result as normal/abnormal . [facility] CenterWhiqhbhZARINNLZXM8063-09-53 10:50:00 Test Item Value Reference Range Interpretation Comments Eosinophils (test code = 4.5 See_Comment [A utomated message] The Eosinophils) system which ge nerated this result tra nsmitted reference range : <=4.0. The reference r ondina was not used to int erpret this result as normal/abnormal . [facility] CenterDzsvvfmHQGFRNKQIH8680-78-87 10:50:00 Test Item Value Reference Range Interpretation Comments Monocytes # (test code 0.5 See_Comment [Aut omated message] The = Monocytes #) system which generated this result tra nsmitted reference range : <=0.8. The reference r ondina was not used to int erpret this result as normal/abnormal . [facility] CenterKrsduxjFWDCYHHABL1131-23-16 10:50:00 Test Item Value Reference Range Interpretation Comments Eosinophils # (test code 0.3 See_Comment [A utomated message] The = Eosinophils #) system whic h generated this result tra nsmitted reference range : <=0.5. The reference r ondina was not used to int erpret this result as normal/abnormal . [facility] CenterPsafcaxTEWREHMLVK3257-88-18 10:50:00 Test Item Value Reference Range Interpretation Comments Segs (test code = Segs) 65.9 45.0-75.0 [facility] CenterZnibbxiNVHVDYOTUF7212-32-72 10:50:00 Test Item Value Reference Range Interpretation Comments MCH (test code = MCH) 26.3 pg 27.0-31.0 [facility] CenterBxypbwxFBQCDRQPOA7446-19-93 10:50:00 Test Item Value Reference Range Interpretation Comments MCHC (test code = MCHC) 32.2 32.0-36.0 [facility] CenterZfdremiAUWAWBZYMD4361-35-68 10:50:00 Test Item Value Reference Range Interpretation Comments Hct (test code = Hct) 24.2 42.0-54.0 [facility] CenterJtrcrdzMRPLVEOXLX9314-41-82 10:50:00 Test Item Value Reference Range Interpretation Comments MCV (test code = MCV) 81.7 80.0-94.0 [facility] CenterOzfjipeIVKVFIRLTZ2734-61-73 10:50:00 Test Item Value Reference Range Interpretation Comments Platelet (test code = Platelet) 200 133-450 [facility] CenterQeaqspaJKWDRYGJWY6172-37-41 10:50:00 Test Item Value Reference Range Interpretation Comments RDW (test code = RDW) 18.4 11.5-14.5 [facility] CenterKllvgnfSPXHQSCMGC0723-35-54 10:50:00 Test Item Value Reference Range Interpretation Comments MPV (test code = MPV) 8.2 7.4-10.4 [facility] CenterUkzabqrSJCOOMSIFL2776-61-90 10:50:00 Test Item Value Reference Range Interpretation Comments RBC (test code = RBC) 2.96 4.70-6.10 [facility] CenterQqvqokcYWTHBCYCAM3700-66-75 10:50:00 Test Item Value Reference Range Interpretation Comments Hgb (test code = Hgb) 7.8 14.0-18.0 [facility] CenterUbkrkhtAEVLBAPEMY7770-01-98 10:50:00 Test Item Value Reference Range Interpretation Comments WBC (test code = WBC) 7.0 3.7-10.4 [place] [id number] 10:50:00 Test Item Value Reference Range Interpretation Comments Vanco Tr (test code = Vanco Tr) 21.8 [place] [id number] 10:50:00 Test Item Value Reference Range Interpretation Comments Vanco Tr TND (test code = Vanco Tr TND) unk [facility]2019-03-17 10:50:00 Test Item Value Reference Range Interpretation Comments Magnesium Lvl (test code = Magnesium 1.8 1.8-2.4 Lvl) [facility] HospitalCHEM COGUO5922-90-54 10:50:00 Test Item Value Reference Range Interpretation Comments Phosphorus (test code = Phosphorus) 3.3 2.5-4.5 [facility]MzzeknlQSLVQSSEZXGS7536-72-26 10:50:00 Test Item Value Reference Range Interpretation Comments AGAP (test code = AGAP) 9.9 10.0-20.0 [facility] MichiganIatyqnhRFIYFQKBWYJR0407-86-40 10:50:00 Test Item Value Reference Range Interpretation Comments Calcium Lvl (test code = Calcium Lvl) 7.9 8.5-10.5 [facility]YwuxzxsAJTWPMFXZFKG6614-39-03 10:50:00 Test Item Value Reference Range Interpretation Comments eGFR (test code = eGFR) 101 [facility] MichiganXsujtrdRXLSZZOFJYFL0109-40-84 10:50:00 Test Item Value Reference Range Interpretation Comments Creatinine Lvl (test code = Creatinine 0.72 0.50-1.40 Lvl) [facility] MichiganJthjoubRAUESUBGRXRM3989-11-00 10:50:00 Test Item Value Reference Range Interpretation Comments Sodium Lvl (test code = Sodium Lvl) 143 135-145 [facility] MichiganUptdnfsVDTHKUIGNHEB0882-98-85 10:50:00 Test Item Value Reference Range Interpretation Comments Potassium Lvl (test code = Potassium 3.9 3.5-5.1 Lvl) [facility] MichiganFmrdjwvUXAHALGOOTUI6749-09-70 10:50:00 Test Item Value Reference Range Interpretation Comments Chloride Lvl (test code = Chloride Lvl) 109 95-109 [facility] MichiganTgawpfrIPMOVFHAZPNJ4613-21-25 10:50:00 Test Item Value Reference Range Interpretation Comments BUN (test code = BUN) 15 7-22 [facility] MichiganDulwzqeGYZBFBUVCOHZ7106-61-86 10:50:00 Test Item Value Reference Range Interpretation Comments CO2 (test code = CO2) 28 24-32 [facility] MichiganNukphioGGFAHTRUGFVA8103-97-89 10:50:00 Test Item Value Reference Range Interpretation Comments Glucose Lvl (test code = Glucose Lvl) 121 70-99 [facility] CenterDwmzlywZTXWLJFKRT1279-81-92 10:50:00 Test Item Value Reference Range Interpretation Comments Basophils # (test code 0.1 See_Comment [Aut omated message] The = Basophils #) system which generated this result tra nsmitted reference range : <=0.2. The reference r ondina was not used to int erpret this result as normal/abnormal . [facility] CenterPozlqmbMSBPFRYXLU2193-67-97 10:50:00 Test Item Value Reference Range Interpretation Comments Neutrophils # (test code = Neutrophils 4.6 1.5-8.1 #) [facility] CenterVulcatsEECFVMEZMV3136-31-79 10:50:00 Test Item Value Reference Range Interpretation Comments Lymphocytes # (test code = Lymphocytes 1.5 1.0-5.5 #) [facility] CenterFodgjtzMWHXFKPPKJ2911-30-38 10:50:00 Test Item Value Reference Range Interpretation Comments Lymphocytes (test code = Lymphocytes) 22.0 20.0-40.0 [facility] CenterCpnampfFZOYGRGKAO9683-02-65 10:50:00 Test Item Value Reference Range Interpretation Comments Monocytes (test code = Monocytes) 6.9 2.0-12.0 [facility] CenterUktvncqXVWJKYBIMD6027-98-52 10:50:00 Test Item Value Reference Range Interpretation Comments Basophils (test code = 0.7 See_Comment [Aut omated message] The Basophils) system which ge nerated this result tra nsmitted reference range : <=1.0. The reference r ondina was not used to int erpret this result as normal/abnormal . [facility] CenterWwgbgpxUOZEIIPXHG2782-74-97 10:50:00 Test Item Value Reference Range Interpretation Comments Eosinophils (test code = 4.5 See_Comment [A utomated message] The Eosinophils) system which ge nerated this result tra nsmitted reference range : <=4.0. The reference r ondina was not used to int erpret this result as normal/abnormal . [facility] CenterPveowjbWJSQILRNBN5201-00-00 10:50:00 Test Item Value Reference Range Interpretation Comments Monocytes # (test code 0.5 See_Comment [Aut omated message] The = Monocytes #) system which generated this result tra nsmitted reference range : <=0.8. The reference r ondina was not used to int erpret this result as normal/abnormal . [facility] CenterKpamwknNTYKMKAQDT3320-09-33 10:50:00 Test Item Value Reference Range Interpretation Comments Eosinophils # (test code 0.3 See_Comment [A utomated message] The = Eosinophils #) system whic h generated this result tra nsmitted reference range : <=0.5. The reference r ondina was not used to int erpret this result as normal/abnormal . [facility] CenterFrznjkjVLZGKGVMFM7907-98-95 10:50:00 Test Item Value Reference Range Interpretation Comments Segs (test code = Segs) 65.9 45.0-75.0 [facility] CenterMrazgamQGIDCGMVQV0041-17-52 10:50:00 Test Item Value Reference Range Interpretation Comments MCH (test code = MCH) 26.3 pg 27.0-31.0 [facility] CenterGlegzbhTIOUTJBEDL9200-54-80 10:50:00 Test Item Value Reference Range Interpretation Comments MCHC (test code = MCHC) 32.2 32.0-36.0 [facility] CenterHxdhqiaFECGBUYVLX2484-96-97 10:50:00 Test Item Value Reference Range Interpretation Comments Hct (test code = Hct) 24.2 42.0-54.0 [facility] CenterPsjxltsNWSZLMHJJC9450-98-89 10:50:00 Test Item Value Reference Range Interpretation Comments MCV (test code = MCV) 81.7 80.0-94.0 [facility]JqzdfknYOHXEWIXUE8373-88-16 10:50:00 Test Item Value Reference Range Interpretation Comments Platelet (test code = Platelet) 200 133-450 [facility] CenterXgayawyWGDDHNRJRS9412-09-08 10:50:00 Test Item Value Reference Range Interpretation Comments RDW (test code = RDW) 18.4 11.5-14.5 [facility] CenterZqcjnozKZIJIAUMIF1072-04-68 10:50:00 Test Item Value Reference Range Interpretation Comments MPV (test code = MPV) 8.2 7.4-10.4 [facility] CenterCgzmvqfNWKNAWZMXW0520-05-23 10:50:00 Test Item Value Reference Range Interpretation Comments RBC (test code = RBC) 2.96 4.70-6.10 [facility] CenterTjkftwlWFPAGNUIIJ9508-12-73 10:50:00 Test Item Value Reference Range Interpretation Comments Hgb (test code = Hgb) 7.8 14.0-18.0 [facility]DxnlddvWJPDDCIKNX3182-03-47 10:50:00 Test Item Value Reference Range Interpretation Comments WBC (test code = WBC) 7.0 3.7-10.4 [facility] HospitalXknkaiyFVWOIERGZJ5740-16-31 10:50:00 Test Item Value Reference Range Interpretation Comments Vanco Tr (test code = Vanco Tr) 21.8 [facility] HospitalPrzowlyKQVXBVVEQY7277-33-42 10:50:00 Test Item Value Reference Range Interpretation Comments Vanco Tr TND (test code = Vanco Tr TND) [facility]annCHEM BAOGZ3518-39-73 10:50:00 Test Item Value Reference Range Interpretation Comments Magnesium Lvl (test code = Magnesium 1.8 1.8-2.4 Lvl) [facility] HospitalannCHEM QAIKN3667-26-01 10:50:00 Test Item Value Reference Range Interpretation Comments Phosphorus (test code = Phosphorus) 3.3 2.5-4.5 [facility]XfegdjgOGEPBHTSSEWY2864-51-72 10:50:00 Test Item Value Reference Range Interpretation Comments AGAP (test code = AGAP) 9.9 10.0-20.0 [facility]wallLssogagEXKRFVVBUVNS5677-60-26 10:50:00 Test Item Value Reference Range Interpretation Comments Calcium Lvl (test code = Calcium Lvl) 7.9 8.5-10.5 [facility]MayoyhaEHSHLHYRFMQH1628-91-91 10:50:00 Test Item Value Reference Range Interpretation Comments eGFR (test code = eGFR) 101 [facility]CihhqarWOFZNTXPDVZQ5193-49-80 10:50:00 Test Item Value Reference Range Interpretation Comments Creatinine Lvl (test code = Creatinine 0.72 0.50-1.40 Lvl) [facility] MichiganVhqihsbKDICCGGIDQEL1936-87-81 10:50:00 Test Item Value Reference Range Interpretation Comments Sodium Lvl (test code = Sodium Lvl) 143 135-145 [facility] MichiganHnkytmaWXGIEBXMTZIV0440-83-82 10:50:00 Test Item Value Reference Range Interpretation Comments Potassium Lvl (test code = Potassium 3.9 3.5-5.1 Lvl) [facility]VqaasxwGGICOFCWNCAZ6093-88-53 10:50:00 Test Item Value Reference Range Interpretation Comments Chloride Lvl (test code = Chloride Lvl) 109 95-109 [facility]QgnscsxKBCKYMMTFPUX2232-17-12 10:50:00 Test Item Value Reference Range Interpretation Comments BUN (test code = BUN) 15 7-22 [facility]KqgbjsgVGBBWKGRJJHW1902-18-68 10:50:00 Test Item Value Reference Range Interpretation Comments CO2 (test code = CO2) 28 24-32 [facility] MichiganAyucbiyDNFAFRSCJNOR4898-69-48 10:50:00 Test Item Value Reference Range Interpretation Comments Glucose Lvl (test code = Glucose Lvl) 121 70-99 [facility] CenterNyfuvjeVKASFUPXDJ1739-99-76 10:50:00 Test Item Value Reference Range Interpretation Comments Basophils # (test code = Basophils #) 0.1 <=0.2 [facility] CenterEdyokgcOZUJPTQFFE4282-82-60 10:50:00 Test Item Value Reference Range Interpretation Comments Neutrophils # (test code = Neutrophils 4.6 1.5-8.1 #) [facility] CenterAcwlfhjLFNDQGVWDA9231-35-20 10:50:00 Test Item Value Reference Range Interpretation Comments Lymphocytes # (test code = Lymphocytes 1.5 1.0-5.5 #) [facility] CenterJtahkviEUQDRSKEWD6609-94-53 10:50:00 Test Item Value Reference Range Interpretation Comments Lymphocytes (test code = Lymphocytes) 22.0 20.0-40.0 [facility] CenterArgenylOEMBFRYXAD2053-31-75 10:50:00 Test Item Value Reference Range Interpretation Comments Monocytes (test code = Monocytes) 6.9 2.0-12.0 [facility] CenterQbyopwzKVMCKFOELN3482-94-62 10:50:00 Test Item Value Reference Range Interpretation Comments Basophils (test code = Basophils) 0.7 <=1.0 [facility] CenterDsnlljiHBXXCMKJWH8561-35-49 10:50:00 Test Item Value Reference Range Interpretation Comments Eosinophils (test code = Eosinophils) 4.5 <=4.0 [facility] CenterFfhrrxcSYFSQFTXQO5818-08-82 10:50:00 Test Item Value Reference Range Interpretation Comments Monocytes # (test code = Monocytes #) 0.5 <=0.8 [facility] CenterIrlwmykOTDNJRUGLC3994-46-32 10:50:00 Test Item Value Reference Range Interpretation Comments Eosinophils # (test code = Eosinophils 0.3 <=0.5 #) [facility] CenterYggxshaWLYBCWDTFR1041-14-57 10:50:00 Test Item Value Reference Range Interpretation Comments Segs (test code = Segs) 65.9 45.0-75.0 [facility] CenterNqlferjSIOEUVNCXI6501-61-85 10:50:00 Test Item Value Reference Range Interpretation Comments MCH (test code = MCH) 26.3 pg 27.0-31.0 [facility] CenterWofdakgVHSBQEMPEX5004-11-96 10:50:00 Test Item Value Reference Range Interpretation Comments MCHC (test code = MCHC) 32.2 32.0-36.0 [facility] CenterDkiobzbMYLLXCDVPB4197-71-17 10:50:00 Test Item Value Reference Range Interpretation Comments Hct (test code = Hct) 24.2 42.0-54.0 [facility] CenterOksehcuPXJSMIQKPJ6418-07-67 10:50:00 Test Item Value Reference Range Interpretation Comments MCV (test code = MCV) 81.7 80.0-94.0 [facility] CenterAxttuwbZKFTNVEOJK4006-84-57 10:50:00 Test Item Value Reference Range Interpretation Comments Platelet (test code = Platelet) 200 133-450 [facility] CenterVofjijrVUZGMXSFAF1743-83-51 10:50:00 Test Item Value Reference Range Interpretation Comments RDW (test code = RDW) 18.4 11.5-14.5 [facility] CenterRhoqqbzLHZZMPHFDM3520-78-58 10:50:00 Test Item Value Reference Range Interpretation Comments MPV (test code = MPV) 8.2 7.4-10.4 [facility] CenterIwslbklBNKFKUMNHG4591-04-58 10:50:00 Test Item Value Reference Range Interpretation Comments RBC (test code = RBC) 2.96 4.70-6.10 [facility] CenterWmzumgvFYFUUNIEVZ1325-05-16 10:50:00 Test Item Value Reference Range Interpretation Comments Hgb (test code = Hgb) 7.8 14.0-18.0 [facility] CenterEdfaenvUVRUOPZQPX0201-28-22 10:50:00 Test Item Value Reference Range Interpretation Comments WBC (test code = WBC) 7.0 3.7-10.4 [place] [id number] 10:50:00 Test Item Value Reference Range Interpretation Comments Vanco Tr (test code = Vanco Tr) 21.8 [place] [id number] 10:50:00 Test Item Value Reference Range Interpretation Comments Vanco Tr TND (test code = Vanco Tr TND) unk [facility]2019-03-16 09:08:00 Test Item Value Reference Range Interpretation Comments Bili Total (test code = Bili Total) 0.6 0.2-1.3 [facility]2019-03-16 09:08:00 Test Item Value Reference Range Interpretation Comments Total Protein (test code = Total 6.5 6.4-8.4 Protein) [facility]2019-03-16 09:08:00 Test Item Value Reference Range Interpretation Comments Alk Phos (test code = Alk Phos) 71 39-136 [facility]2019-03-16 09:08:00 Test Item Value Reference Range Interpretation Comments ALT (test code = ALT) 12 See_Comment [Auto mated message] The system which ge nerated this result transmit garrett reference range : <=65. The reference range was not used to interpr et this result as cassie l/abnormal. [facility]2019-03-16 09:08:00 Test Item Value Reference Range Interpretation Comments AST (test code = AST) 12 See_Comment [Auto mated message] The system which ge nerated this result transmit garrett reference range : <=37. The reference range was not used to interpr et this result as cassie l/abnormal. [facility]2019-03-16 09:08:00 Test Item Value Reference Range Interpretation Comments Albumin Lvl (test code = Albumin Lvl) 2.5 3.5-5.0 [place] 416249-03-16 09:08:00 Test Item Value Reference Range Interpretation Comments A/G Ratio (test code = A/G Ratio) 0.6 1 0.7-1.6 [place] 416249-03-16 09:08:00 Test Item Value Reference Range Interpretation Comments Globulin (test code = Globulin) 4.0 2.7-4.2 [place] 416249-03-16 09:08:00 Test Item Value Reference Range Interpretation Comments B/C Ratio (test code = B/C Ratio) 19 1 6-25 [place] 416249-03-16 09:08:00 Test Item Value Reference Range Interpretation Comments Bili Total (test code = Bili Total) 0.6 0.2-1.3 [place] 416249-03-16 09:08:00 Test Item Value Reference Range Interpretation Comments Total Protein (test code = Total 6.5 6.4-8.4 Protein) [place] 416249-03-16 09:08:00 Test Item Value Reference Range Interpretation Comments Alk Phos (test code = Alk Phos) 71 39-136 [place] 416249-03-16 09:08:00 Test Item Value Reference Range Interpretation Comments ALT (test code = ALT) 12 See_Comment [Auto mated message] The system which ge nerated this result transmit garrett reference range : <=65. The reference range was not used to interpr et this result as cassie l/abnormal. [facility]2019-03-16 09:08:00 Test Item Value Reference Range Interpretation Comments AST (test code = AST) 12 See_Comment [Auto mated message] The system which ge nerated this result transmit garrett reference range : <=37. The reference range was not used to interpr et this result as cassie l/abnormal. [place] 416249-03-16 09:08:00 Test Item Value Reference Range Interpretation Comments Albumin Lvl (test code = Albumin Lvl) 2.5 3.5-5.0 [place] 416249-03-16 09:08:00 Test Item Value Reference Range Interpretation Comments A/G Ratio (test code = A/G Ratio) 0.6 1 0.7-1.6 [facility]2019-03-16 09:08:00 Test Item Value Reference Range Interpretation Comments Globulin (test code = Globulin) 4.0 2.7-4.2 [facility]2019-03-16 09:08:00 Test Item Value Reference Range Interpretation Comments B/C Ratio (test code = B/C Ratio) 19 1 6-25 [facility]2019-03-16 09:08:00 Test Item Value Reference Range Interpretation Comments Bili Total (test code = Bili Total) 0.6 0.2-1.3 [facility]2019-03-16 09:08:00 Test Item Value Reference Range Interpretation Comments Total Protein (test code = Total 6.5 6.4-8.4 Protein) [facility]2019-03-16 09:08:00 Test Item Value Reference Range Interpretation Comments Alk Phos (test code = Alk Phos) 71 39-136 [facility]2019-03-16 09:08:00 Test Item Value Reference Range Interpretation Comments ALT (test code = ALT) 12 See_Comment [Auto mated message] The system which ge nerated this result transmit garrett reference range : <=65. The reference range was not used to interpr et this result as cassie l/abnormal. [facility]2019-03-16 09:08:00 Test Item Value Reference Range Interpretation Comments AST (test code = AST) 12 See_Comment [Auto mated message] The system which ge nerated this result transmit garrett reference range : <=37. The reference range was not used to interpr et this result as cassie l/abnormal. [facility]2019-03-16 09:08:00 Test Item Value Reference Range Interpretation Comments Albumin Lvl (test code = Albumin Lvl) 2.5 3.5-5.0 [facility]2019-03-16 09:08:00 Test Item Value Reference Range Interpretation Comments A/G Ratio (test code = A/G Ratio) 0.6 1 0.7-1.6 [place] 416249-03-16 09:08:00 Test Item Value Reference Range Interpretation Comments Globulin (test code = Globulin) 4.0 2.7-4.2 [facility]2019-03-16 09:08:00 Test Item Value Reference Range Interpretation Comments B/C Ratio (test code = B/C Ratio) 19 1 6-25 [facility]2019-03-16 09:08:00 Test Item Value Reference Range Interpretation Comments Bili Total (test code = Bili Total) 0.6 0.2-1.3 [facility]2019-03-16 09:08:00 Test Item Value Reference Range Interpretation Comments Total Protein (test code = Total 6.5 6.4-8.4 Protein) [facility]2019-03-16 09:08:00 Test Item Value Reference Range Interpretation Comments Alk Phos (test code = Alk Phos) 71 39-136 [facility]2019-03-16 09:08:00 Test Item Value Reference Range Interpretation Comments ALT (test code = ALT) 12 See_Comment [Auto mated message] The system which ge nerated this result transmit garrett reference range : <=65. The reference range was not used to interpr et this result as cassie l/abnormal. [facility]2019-03-16 09:08:00 Test Item Value Reference Range Interpretation Comments AST (test code = AST) 12 See_Comment [Auto mated message] The system which ge nerated this result transmit garrett reference range : <=37. The reference range was not used to interpr et this result as cassie l/abnormal. [facility]2019-03-16 09:08:00 Test Item Value Reference Range Interpretation Comments Albumin Lvl (test code = Albumin Lvl) 2.5 3.5-5.0 [place] 416249-03-16 09:08:00 Test Item Value Reference Range Interpretation Comments A/G Ratio (test code = A/G Ratio) 0.6 1 0.7-1.6 [facility]2019-03-16 09:08:00 Test Item Value Reference Range Interpretation Comments Globulin (test code = Globulin) 4.0 2.7-4.2 [place] 416249-03-16 09:08:00 Test Item Value Reference Range Interpretation Comments B/C Ratio (test code = B/C Ratio) 19 1 6-25 [facility]2019-03-16 09:08:00 Test Item Value Reference Range Interpretation Comments Bili Total (test code = Bili Total) 0.6 0.2-1.3 [facility]2019-03-16 09:08:00 Test Item Value Reference Range Interpretation Comments Total Protein (test code = Total 6.5 6.4-8.4 Protein) [facility]2019-03-16 09:08:00 Test Item Value Reference Range Interpretation Comments Alk Phos (test code = Alk Phos) 71 39-136 [facility]2019-03-16 09:08:00 Test Item Value Reference Range Interpretation Comments ALT (test code = ALT) 12 <=65 [facility]2019-03-16 09:08:00 Test Item Value Reference Range Interpretation Comments AST (test code = AST) 12 <=37 [facility]2019-03-16 09:08:00 Test Item Value Reference Range Interpretation Comments Albumin Lvl (test code = Albumin Lvl) 2.5 3.5-5.0 [facility]2019-03-16 09:08:00 Test Item Value Reference Range Interpretation Comments A/G Ratio (test code = A/G Ratio) 0.6 1 0.7-1.6 [facility]2019-03-16 09:08:00 Test Item Value Reference Range Interpretation Comments Globulin (test code = Globulin) 4.0 2.7-4.2 [facility]2019-03-16 09:08:00 Test Item Value Reference Range Interpretation Comments B/C Ratio (test code = B/C Ratio) 19 1 -25 [facility] CenterQvjnindFLVNRRGAQY4751-93-89 20:56:00 Test Item Value Reference Range Interpretation Comments INR (test code = INR) 0.89 1 0.85-1.17 [facility] CenterBueqcdcPXFXZFAXNT0048-22-73 20:56:00 Test Item Value Reference Range Interpretation Comments PT (test code = PT) 11.9 s 12.0-14.7 [facility] CenterAosjkczLKPBQARHGI4513-70-34 20:56:00 Test Item Value Reference Range Interpretation Comments INR (test code = INR) 0.89 1 0.85-1.17 [place] [id number] 20:56:00 Test Item Value Reference Range Interpretation Comments PT (test code = PT) 11.9 s 12.0-14.7 [facility] CenterSvlthprKBEQXNNTJG1132-48-48 20:56:00 Test Item Value Reference Range Interpretation Comments INR (test code = INR) 0.89 1 0.85-1.17 [facility] CenterYmyxdslSVMBDYCQLZ7721-91-23 20:56:00 Test Item Value Reference Range Interpretation Comments PT (test code = PT) 11.9 s 12.0-14.7 [facility] CenterQytbqcuTPFRQDVUDJ4639-96-85 20:56:00 Test Item Value Reference Range Interpretation Comments INR (test code = INR) 0.89 1 0.85-1.17 [facility] CenterJymrhwmWTPEOAXMHP1949-99-47 20:56:00 Test Item Value Reference Range Interpretation Comments PT (test code = PT) 11.9 s 12.0-14.7 [facility] CenterKlfrhqbXAXGIIWASR4369-54-45 20:56:00 Test Item Value Reference Range Interpretation Comments INR (test code = INR) 0.89 1 0.85-1.17 [facility] CenterPnwnbgqUINMYXVURK6845-27-37 20:56:00 Test Item Value Reference Range Interpretation Comments PT (test code = PT) 11.9 s 12.0-14.7 [facility] [id number] 15:16:00 Test Item Value Reference Range Interpretation Comments RBC product (test code Product available = RBC product) 1(05/17/18 10:16 AM) [facility] [id number] 15:16:00 Test Item Value Reference Range Interpretation Comments RBC product (test code Product available = RBC product) 1(05/17/18 10:16 AM) [facility] [id number] 15:16:00 Test Item Value Reference Range Interpretation Comments RBC product (test code Product available = RBC product) 1(05/17/18 10:16 AM) [facility] [id number] 15:16:00 Test Item Value Reference Range Interpretation Comments RBC product (test code Product available = RBC product) 1(05/17/18 10:16 AM) [facility] [id number] 15:16:00 Test Item Value Reference Range Interpretation Comments RBC product (test code Product available = RBC product) 1(05/17/18 10:16 AM) [facility] [id number] 13:26:00 Test Item Value Reference Range Interpretation Comments Antibody Scrn (test Negative (05/17/18 8:26 code = Antibody Scrn) AM) [facility] [id number] 13:26:00 Test Item Value Reference Range Interpretation Comments ABO/Rh (test code = ABO/Rh) [facility] [id number] 13:26:00 Test Item Value Reference Range Interpretation Comments Antibody Scrn (test Negative (05/17/18 8:26 code = Antibody Scrn) AM) [facility] [id number] 13:26:00 Test Item Value Reference Range Interpretation Comments ABO/Rh (test code = ABO/Rh) [facility] [id number] 13:26:00 Test Item Value Reference Range Interpretation Comments Antibody Scrn (test Negative (05/17/18 8:26 code = Antibody Scrn) AM) [facility] [id number] 13:26:00 Test Item Value Reference Range Interpretation Comments ABO/Rh (test code = ABO/Rh) A [facility] [id number] 13:26:00 Test Item Value Reference Range Interpretation Comments Antibody Scrn (test Negative (05/17/18 8:26 code = Antibody Scrn) AM) [facility] [id number] 13:26:00 Test Item Value Reference Range Interpretation Comments ABO/Rh (test code = ABO/Rh) [facility] [id number] 13:26:00 Test Item Value Reference Range Interpretation Comments Antibody Scrn (test Negative (05/17/18 8:26 code = Antibody Scrn) AM) [facility] [id number] 13:26:00 Test Item Value Reference Range Interpretation Comments ABO/Rh (test code = ABO/Rh) A [facility] [employer] [id number] 09:48:00 Test Item Value Reference Range Interpretation Comments Phosphorus (test code = Phosphorus) 3.2 2.5-4.5 [facility] [employer] [id number] 09:48:00 Test Item Value Reference Range Interpretation Comments Bili Total (test code = Bili Total) 0.7 0.2-1.3 [facility]2019-03-15 09:48:00 Test Item Value Reference Range Interpretation Comments Total Protein (test code = Total 5.9 6.4-8.4 Protein) [facility]2019-03-15 09:48:00 Test Item Value Reference Range Interpretation Comments Albumin Lvl (test code = Albumin Lvl) 2.5 3.5-5.0 [facility]2019-03-15 09:48:00 Test Item Value Reference Range Interpretation Comments Alk Phos (test code = Alk Phos) 80 39-136 [facility]2019-03-15 09:48:00 Test Item Value Reference Range Interpretation Comments ALT (test code = ALT) 12 See_Comment [Auto mated message] The system which ge nerated this result transmit garrett reference range : <=65. The reference range was not used to interpr et this result as cassie l/abnormal. [facility]2019-03-15 09:48:00 Test Item Value Reference Range Interpretation Comments AST (test code = AST) 8 See_Comment [Auto mated message] The system which ge nerated this result transmit garrett reference range : <=37. The reference range was not used to interpr et this result as cassie l/abnormal. [facility]2019-03-15 09:48:00 Test Item Value Reference Range Interpretation Comments A/G Ratio (test code = A/G Ratio) 0.7 1 0.7-1.6 [facility]2019-03-15 09:48:00 Test Item Value Reference Range Interpretation Comments Globulin (test code = Globulin) 3.4 2.7-4.2 [facility]2019-03-15 09:48:00 Test Item Value Reference Range Interpretation Comments B/C Ratio (test code = B/C Ratio) 14 1 6-25 [place] 416249-03-15 09:48:00 Test Item Value Reference Range Interpretation Comments Magnesium Lvl (test code = Magnesium 1.8 1.8-2.4 Lvl) [facility] [id number] 09:48:00 Test Item Value Reference Range Interpretation Comments INR (test code = INR) 1.15 1 0.85-1.17 [place] [id number] 09:48:00 Test Item Value Reference Range Interpretation Comments PT (test code = PT) 14.5 s 12.0-14.7 [place] [address]-03-15 09:48:00 Test Item Value Reference Range Interpretation Comments PTT (test code = PTT) 43.8 s 22.9-35.8 [place] 416249-03-15 09:48:00 Test Item Value Reference Range Interpretation Comments Phosphorus (test code = Phosphorus) 3.2 2.5-4.5 [place] 416249-03-15 09:48:00 Test Item Value Reference Range Interpretation Comments Bili Total (test code = Bili Total) 0.7 0.2-1.3 [place] [address]-03-15 09:48:00 Test Item Value Reference Range Interpretation Comments Total Protein (test code = Total 5.9 6.4-8.4 Protein) [place] 416249-03-15 09:48:00 Test Item Value Reference Range Interpretation Comments Albumin Lvl (test code = Albumin Lvl) 2.5 3.5-5.0 [place] 416249-03-15 09:48:00 Test Item Value Reference Range Interpretation Comments Alk Phos (test code = Alk Phos) 80 39-136 [place] 416249-03-15 09:48:00 Test Item Value Reference Range Interpretation Comments ALT (test code = ALT) 12 See_Comment [Auto mated message] The system which ge nerated this result transmit garrett reference range : <=65. The reference range was not used to interpr et this result as cassie l/abnormal. [place] 416249-03-15 09:48:00 Test Item Value Reference Range Interpretation Comments AST (test code = AST) 8 See_Comment [Auto mated message] The system which ge nerated this result transmit garrett reference range : <=37. The reference range was not used to interpr et this result as cassie l/abnormal. [place] 416249-03-15 09:48:00 Test Item Value Reference Range Interpretation Comments A/G Ratio (test code = A/G Ratio) 0.7 1 0.7-1.6 [facility]2019-03-15 09:48:00 Test Item Value Reference Range Interpretation Comments Globulin (test code = Globulin) 3.4 2.7-4.2 [facility]2019-03-15 09:48:00 Test Item Value Reference Range Interpretation Comments B/C Ratio (test code = B/C Ratio) 14 1 6-25 [facility]2019-03-15 09:48:00 Test Item Value Reference Range Interpretation Comments Magnesium Lvl (test code = Magnesium 1.8 1.8-2.4 Lvl) [facility] C[id number] 09:48:00 Test Item Value Reference Range Interpretation Comments INR (test code = INR) 1.15 1 0.85-1.17 [facility] CenterBrrojonBJCZVOKVGD3401-58-06 09:48:00 Test Item Value Reference Range Interpretation Comments PT (test code = PT) 14.5 s 12.0-14.7 [facility] CenterUyqwqpgZYXDFXTUPQ2795-56-45 09:48:00 Test Item Value Reference Range Interpretation Comments PTT (test code = PTT) 43.8 s 22.9-35.8 [facility]2019-03-15 09:48:00 Test Item Value Reference Range Interpretation Comments Phosphorus (test code = Phosphorus) 3.2 2.5-4.5 [facility]2019-03-15 09:48:00 Test Item Value Reference Range Interpretation Comments Bili Total (test code = Bili Total) 0.7 0.2-1.3 [facility]2019-03-15 09:48:00 Test Item Value Reference Range Interpretation Comments Total Protein (test code = Total 5.9 6.4-8.4 Protein) [facility]2019-03-15 09:48:00 Test Item Value Reference Range Interpretation Comments Albumin Lvl (test code = Albumin Lvl) 2.5 3.5-5.0 [facility]2019-03-15 09:48:00 Test Item Value Reference Range Interpretation Comments Alk Phos (test code = Alk Phos) 80 39-136 [facility]2019-03-15 09:48:00 Test Item Value Reference Range Interpretation Comments ALT (test code = ALT) 12 See_Comment [Auto mated message] The system which ge nerated this result transmit garrett reference range : <=65. The reference range was not used to interpr et this result as cassie l/abnormal. [facility]2019-03-15 09:48:00 Test Item Value Reference Range Interpretation Comments AST (test code = AST) 8 See_Comment [Auto mated message] The system which ge nerated this result transmit garrett reference range : <=37. The reference range was not used to interpr et this result as cassie l/abnormal. [facility]2019-03-15 09:48:00 Test Item Value Reference Range Interpretation Comments A/G Ratio (test code = A/G Ratio) 0.7 1 0.7-1.6 [place] 416249-03-15 09:48:00 Test Item Value Reference Range Interpretation Comments Globulin (test code = Globulin) 3.4 2.7-4.2 [facility]2019-03-15 09:48:00 Test Item Value Reference Range Interpretation Comments B/C Ratio (test code = B/C Ratio) 14 1 6-25 [place] 416249-03-15 09:48:00 Test Item Value Reference Range Interpretation Comments Magnesium Lvl (test code = Magnesium 1.8 1.8-2.4 Lvl) [facility] [id number] 09:48:00 Test Item Value Reference Range Interpretation Comments INR (test code = INR) 1.15 1 0.85-1.17 [place] [id number] 09:48:00 Test Item Value Reference Range Interpretation Comments PT (test code = PT) 14.5 s 12.0-14.7 [place] 706799-03-15 09:48:00 Test Item Value Reference Range Interpretation Comments PTT (test code = PTT) 43.8 s 22.9-35.8 [facility]2019-03-15 09:48:00 Test Item Value Reference Range Interpretation Comments Phosphorus (test code = Phosphorus) 3.2 2.5-4.5 [place] 416249-03-15 09:48:00 Test Item Value Reference Range Interpretation Comments Bili Total (test code = Bili Total) 0.7 0.2-1.3 [place] 416249-03-15 09:48:00 Test Item Value Reference Range Interpretation Comments Total Protein (test code = Total 5.9 6.4-8.4 Protein) [facility]2019-03-15 09:48:00 Test Item Value Reference Range Interpretation Comments Albumin Lvl (test code = Albumin Lvl) 2.5 3.5-5.0 [facility]2019-03-15 09:48:00 Test Item Value Reference Range Interpretation Comments Alk Phos (test code = Alk Phos) 80 39-136 [facility]2019-03-15 09:48:00 Test Item Value Reference Range Interpretation Comments ALT (test code = ALT) 12 See_Comment [Auto mated message] The system which ge nerated this result transmit garrett reference range : <=65. The reference range was not used to interpr et this result as cassie l/abnormal. [place] 416249-03-15 09:48:00 Test Item Value Reference Range Interpretation Comments AST (test code = AST) 8 See_Comment [Auto mated message] The system which ge nerated this result transmit garrett reference range : <=37. The reference range was not used to interpr et this result as cassie l/abnormal. [place] 416249-03-15 09:48:00 Test Item Value Reference Range Interpretation Comments A/G Ratio (test code = A/G Ratio) 0.7 1 0.7-1.6 [place] 416249-03-15 09:48:00 Test Item Value Reference Range Interpretation Comments Globulin (test code = Globulin) 3.4 2.7-4.2 [place] 416249-03-15 09:48:00 Test Item Value Reference Range Interpretation Comments B/C Ratio (test code = B/C Ratio) 14 1 6-25 [place] [address]-03-15 09:48:00 Test Item Value Reference Range Interpretation Comments Magnesium Lvl (test code = Magnesium 1.8 1.8-2.4 Lvl) [facility] [id number] 09:48:00 Test Item Value Reference Range Interpretation Comments INR (test code = INR) 1.15 1 0.85-1.17 [place] 706799-03-15 09:48:00 Test Item Value Reference Range Interpretation Comments PT (test code = PT) 14.5 s 12.0-14.7 [facility]XzsdzbsTPCRDCAFUU0122-79-11 09:48:00 Test Item Value Reference Range Interpretation Comments PTT (test code = PTT) 43.8 s 22.9-35.8 [facility]2019-03-15 09:48:00 Test Item Value Reference Range Interpretation Comments Phosphorus (test code = Phosphorus) 3.2 2.5-4.5 [facility]2019-03-15 09:48:00 Test Item Value Reference Range Interpretation Comments Bili Total (test code = Bili Total) 0.7 0.2-1.3 [facility]2019-03-15 09:48:00 Test Item Value Reference Range Interpretation Comments Total Protein (test code = Total 5.9 6.4-8.4 Protein) [facility]2019-03-15 09:48:00 Test Item Value Reference Range Interpretation Comments Albumin Lvl (test code = Albumin Lvl) 2.5 3.5-5.0 [facility]2019-03-15 09:48:00 Test Item Value Reference Range Interpretation Comments Alk Phos (test code = Alk Phos) 80 39-136 [facility]2019-03-15 09:48:00 Test Item Value Reference Range Interpretation Comments ALT (test code = ALT) 12 <=65 [facility]2019-03-15 09:48:00 Test Item Value Reference Range Interpretation Comments AST (test code = AST) [address] <=37 [facility]2019-03-15 09:48:00 Test Item Value Reference Range Interpretation Comments A/G Ratio (test code = A/G Ratio) 0.7 1 0.7-1.6 [facility]2019-03-15 09:48:00 Test Item Value Reference Range Interpretation Comments Globulin (test code = Globulin) 3.4 2.7-4.2 [facility]2019-03-15 09:48:00 Test Item Value Reference Range Interpretation Comments B/C Ratio (test code = B/C Ratio) 14 1 6-25 [facility]2019-03-15 09:48:00 Test Item Value Reference Range Interpretation Comments Magnesium Lvl (test code = Magnesium 1.8 1.8-2.4 Lvl) [facility] CenterLmmzqyzEPBFUTNIYB7971-07-78 09:48:00 Test Item Value Reference Range Interpretation Comments INR (test code = INR) 1.15 1 0.85-1.17 [facility] CenterZhyebnkQZJYIUOYGQ5157-80-53 09:48:00 Test Item Value Reference Range Interpretation Comments PT (test code = PT) 14.5 s 12.0-14.7 [facility] CenterAuitqbbQBFOQHTNDE9128-70-39 09:48:00 Test Item Value Reference Range Interpretation Comments PTT (test code = PTT) 43.8 s 22.9-35.8 [facility]2019-03-14 10:21:00 Test Item Value Reference Range Interpretation Comments AST (test code = AST) 6 See_Comment [Auto mated message] The system which ge nerated this result transmit garrett reference range : <=37. The reference range was not used to interpr et this result as cassie l/abnormal. [facility]2019-03-14 10:21:00 Test Item Value Reference Range Interpretation Comments A/G Ratio (test code = A/G Ratio) 0.7 1 0.7-1.6 [facility]2019-03-14 10:21:00 Test Item Value Reference Range Interpretation Comments Total Protein (test code = Total 5.8 6.4-8.4 Protein) [facility]2019-03-14 10:21:00 Test Item Value Reference Range Interpretation Comments Globulin (test code = Globulin) 3.4 2.7-4.2 [facility]2019-03-14 10:21:00 Test Item Value Reference Range Interpretation Comments B/C Ratio (test code = B/C Ratio) 15 1 6-25 [place] 416249-03-14 10:21:00 Test Item Value Reference Range Interpretation Comments ALT (test code = ALT) 11 See_Comment [Auto mated message] The system which ge nerated this result transmit garrett reference range : <=65. The reference range was not used to interpr et this result as cassie l/abnormal. [facility]2019-03-14 10:21:00 Test Item Value Reference Range Interpretation Comments Bili Total (test code = Bili Total) 1.6 0.2-1.3 [place] 416249-03-14 10:21:00 Test Item Value Reference Range Interpretation Comments Albumin Lvl (test code = Albumin Lvl) 2.4 3.5-5.0 [facility]2019-03-14 10:21:00 Test Item Value Reference Range Interpretation Comments Alk Phos (test code = Alk Phos) 75 39-136 [facility]2019-03-14 10:21:00 Test Item Value Reference Range Interpretation Comments Magnesium Lvl (test code = Magnesium 1.8 1.8-2.4 Lvl) [facility]2019-03-14 10:21:00 Test Item Value Reference Range Interpretation Comments Phosphorus (test code = Phosphorus) 3.0 2.5-4.5 [facility] H[id number] 10:21:00 Test Item Value Reference Range Interpretation Comments Vanco Lvl (test code = Vanco Lvl) 16.6 [facility]2019-03-14 10:21:00 Test Item Value Reference Range Interpretation Comments AST (test code = AST) 6 See_Comment [Auto mated message] The system which ge nerated this result transmit garrett reference range : <=37. The reference range was not used to interpr et this result as cassie l/abnormal. [facility]2019-03-14 10:21:00 Test Item Value Reference Range Interpretation Comments A/G Ratio (test code = A/G Ratio) 0.7 1 0.7-1.6 [facility]2019-03-14 10:21:00 Test Item Value Reference Range Interpretation Comments Total Protein (test code = Total 5.8 6.4-8.4 Protein) [facility]2019-03-14 10:21:00 Test Item Value Reference Range Interpretation Comments Globulin (test code = Globulin) 3.4 2.7-4.2 [facility]2019-03-14 10:21:00 Test Item Value Reference Range Interpretation Comments B/C Ratio (test code = B/C Ratio) 15 1 6-25 [facility]2019-03-14 10:21:00 Test Item Value Reference Range Interpretation Comments ALT (test code = ALT) 11 See_Comment [Auto mated message] The system which ge nerated this result transmit garrett reference range : <=65. The reference range was not used to interpr et this result as cassie l/abnormal. [facility] [id number] 10:21:00 Test Item Value Reference Range Interpretation Comments Bili Total (test code = Bili Total) 1.6 0.2-1.3 [facility]2019-03-14 10:21:00 Test Item Value Reference Range Interpretation Comments Albumin Lvl (test code = Albumin Lvl) 2.4 3.5-5.0 [facility]2019-03-14 10:21:00 Test Item Value Reference Range Interpretation Comments Alk Phos (test code = Alk Phos) 75 39-136 [facility]2019-03-14 10:21:00 Test Item Value Reference Range Interpretation Comments Magnesium Lvl (test code = Magnesium 1.8 1.8-2.4 Lvl) [facility]2019-03-14 10:21:00 Test Item Value Reference Range Interpretation Comments Phosphorus (test code = Phosphorus) 3.0 2.5-4.5 [facility] Hosp[id number] 10:21:00 Test Item Value Reference Range Interpretation Comments Vanco Lvl (test code = Vanco Lvl) 16.6 [facility]2019-03-14 10:21:00 Test Item Value Reference Range Interpretation Comments AST (test code = AST) 6 See_Comment [Auto mated message] The system which ge nerated this result transmit garrett reference range : <=37. The reference range was not used to interpr et this result as cassie l/abnormal. [facility]2019-03-14 10:21:00 Test Item Value Reference Range Interpretation Comments A/G Ratio (test code = A/G Ratio) 0.7 1 0.7-1.6 [facility]2019-03-14 10:21:00 Test Item Value Reference Range Interpretation Comments Total Protein (test code = Total 5.8 6.4-8.4 Protein) [facility]2019-03-14 10:21:00 Test Item Value Reference Range Interpretation Comments Globulin (test code = Globulin) 3.4 2.7-4.2 [facility]2019-03-14 10:21:00 Test Item Value Reference Range Interpretation Comments B/C Ratio (test code = B/C Ratio) 15 1 6-25 [facility]2019-03-14 10:21:00 Test Item Value Reference Range Interpretation Comments ALT (test code = ALT) 11 See_Comment [Auto mated message] The system which ge nerated this result transmit garrett reference range : <=65. The reference range was not used to interpr et this result as cassie l/abnormal. [facility]2019-03-14 10:21:00 Test Item Value Reference Range Interpretation Comments Bili Total (test code = Bili Total) 1.6 0.2-1.3 [facility]2019-03-14 10:21:00 Test Item Value Reference Range Interpretation Comments Albumin Lvl (test code = Albumin Lvl) 2.4 3.5-5.0 [facility]2019-03-14 10:21:00 Test Item Value Reference Range Interpretation Comments Alk Phos (test code = Alk Phos) 75 39-136 [facility]2019-03-14 10:21:00 Test Item Value Reference Range Interpretation Comments Magnesium Lvl (test code = Magnesium 1.8 1.8-2.4 Lvl) [facility]2019-03-14 10:21:00 Test Item Value Reference Range Interpretation Comments Phosphorus (test code = Phosphorus) 3.0 2.5-4.5 [facility] H[id number] 10:21:00 Test Item Value Reference Range Interpretation Comments Vanco Lvl (test code = Vanco Lvl) 16.6 [facility]2019-03-14 10:21:00 Test Item Value Reference Range Interpretation Comments AST (test code = AST) 6 See_Comment [Auto mated message] The system which ge nerated this result transmit garrett reference range : <=37. The reference range was not used to interpr et this result as cassie l/abnormal. [facility]2019-03-14 10:21:00 Test Item Value Reference Range Interpretation Comments A/G Ratio (test code = A/G Ratio) 0.7 1 0.7-1.6 [facility]2019-03-14 10:21:00 Test Item Value Reference Range Interpretation Comments Total Protein (test code = Total 5.8 6.4-8.4 Protein) [facility]2019-03-14 10:21:00 Test Item Value Reference Range Interpretation Comments Globulin (test code = Globulin) 3.4 2.7-4.2 [facility]2019-03-14 10:21:00 Test Item Value Reference Range Interpretation Comments B/C Ratio (test code = B/C Ratio) 15 1 6-25 [facility]2019-03-14 10:21:00 Test Item Value Reference Range Interpretation Comments ALT (test code = ALT) 11 See_Comment [Auto mated message] The system which ge nerated this result transmit garrett reference range : <=65. The reference range was not used to interpr et this result as cassie l/abnormal. [facility]2019-03-14 10:21:00 Test Item Value Reference Range Interpretation Comments Bili Total (test code = Bili Total) 1.6 0.2-1.3 [facility]2019-03-14 10:21:00 Test Item Value Reference Range Interpretation Comments Albumin Lvl (test code = Albumin Lvl) 2.4 3.5-5.0 [facility]2019-03-14 10:21:00 Test Item Value Reference Range Interpretation Comments Alk Phos (test code = Alk Phos) 75 39-136 [facility]2019-03-14 10:21:00 Test Item Value Reference Range Interpretation Comments Magnesium Lvl (test code = Magnesium 1.8 1.8-2.4 Lvl) [facility]2019-03-14 10:21:00 Test Item Value Reference Range Interpretation Comments Phosphorus (test code = Phosphorus) 3.0 2.5-4.5 [facility] HospitalWldaoonQPIDBSZRON0174-07-58 10:21:00 Test Item Value Reference Range Interpretation Comments Vanco Lvl (test code = Vanco Lvl) 16.6 [facility]2019-03-14 10:21:00 Test Item Value Reference Range Interpretation Comments AST (test code = AST) 6 <=37 [facility]2019-03-14 10:21:00 Test Item Value Reference Range Interpretation Comments A/G Ratio (test code = A/G Ratio) 0.7 1 0.7-1.6 [facility]2019-03-14 10:21:00 Test Item Value Reference Range Interpretation Comments Total Protein (test code = Total 5.8 6.4-8.4 Protein) [facility]2019-03-14 10:21:00 Test Item Value Reference Range Interpretation Comments Globulin (test code = Globulin) 3.4 2.7-4.2 [facility]2019-03-14 10:21:00 Test Item Value Reference Range Interpretation Comments B/C Ratio (test code = B/C Ratio) 15 1 6-25 [facility]2019-03-14 10:21:00 Test Item Value Reference Range Interpretation Comments ALT (test code = ALT) 11 <=65 [facility]2019-03-14 10:21:00 Test Item Value Reference Range Interpretation Comments Bili Total (test code = Bili Total) 1.6 0.2-1.3 [facility]2019-03-14 10:21:00 Test Item Value Reference Range Interpretation Comments Albumin Lvl (test code = Albumin Lvl) 2.4 3.5-5.0 [facility]2019-03-14 10:21:00 Test Item Value Reference Range Interpretation Comments Alk Phos (test code = Alk Phos) 75 39-136 [facility]2019-03-14 10:21:00 Test Item Value Reference Range Interpretation Comments Magnesium Lvl (test code = Magnesium 1.8 1.8-2.4 Lvl) [facility]2019-03-14 10:21:00 Test Item Value Reference Range Interpretation Comments Phosphorus (test code = Phosphorus) 3.0 2.5-4.5 [facility] H[id number] 10:21:00 Test Item Value Reference Range Interpretation Comments Vanco Lvl (test code = Vanco Lvl) 16.6 [facility]annPAR[facility]YRO[facility] [id number] 08:07:00 Test Item Value Reference Range Interpretation Comments Ca Norm WB (test code = Ca Norm WB) 1.15 1.05-1.25 [facility] HospitalannPARATHYROID [id number] 08:07:00 Test Item Value Reference Range Interpretation Comments Ca Ion WB (test code = Ca Ion WB) 1.15 1.05-1.25 [facility] [id number] 08:07:00 Test Item Value Reference Range Interpretation Comments Ca Norm WB (test code = Ca Norm WB) 1.15 1.05-1.25 [facility]annPH[facility]ITALATHYROID [id number] 08:07:00 Test Item Value Reference Range Interpretation Comments Ca Ion WB (test code = Ca Ion WB) 1.15 1.05-1.25 [facility] HospitalATHYMUSC [facility] [id number] 08:07:00 Test Item Value Reference Range Interpretation Comments Ca Norm WB (test code = Ca Norm WB) 1.15 1.05-1.25 [facility]annPHO[facility] HOSPITALATHYROID [id number] 08:07:00 Test Item Value Reference Range Interpretation Comments Ca Ion WB (test code = Ca Ion WB) 1.15 1.05-1.25 [facility]annPH[facility]PITALATHYMUSC [facility] MEDICAL [id number] 08:07:00 Test Item Value Reference Range Interpretation Comments Ca Norm WB (test code = Ca Norm WB) 1.15 1.05-1.25 [facility]annPHOEN[facility]OSPITALATHYMUSC [facility] MAR[facility] MEDICAL [id number] 08:07:00 Test Item Value Reference Range Interpretation Comments Ca Ion WB (test code = Ca Ion WB) 1.15 1.05-1.25 [facility]ATHYMUSC [facility] MED[facility] [id number] 08:07:00 Test Item Value Reference Range Interpretation Comments Ca Norm WB (test code = Ca Norm WB) 1.15 1.05-1.25 [facility]ATHYMUSC [facility] MEDICAL [id number] 08:07:00 Test Item Value Reference Range Interpretation Comments Ca Ion WB (test code = Ca Ion WB) 1.15 1.05-1.25 [facility] HospitalATHYMUSC [facility] MEDICAL [id number] 08:41:00 Test Item Value Reference Range Interpretation Comments Ca Norm WB (test code = Ca Norm WB) 1.11 1.05-1.25 [facility]annPHOEN[facility] MEM[facility] HOSPITALATHYMUSC [facility] MAR[facility] MEDICAL [id number] 08:41:00 Test Item Value Reference Range Interpretation Comments Ca Ion WB (test code = Ca Ion WB) 1.09 1.05-1.25 [facility]ATHYMUSC [facility] MEDICAL [id number] 08:41:00 Test Item Value Reference Range Interpretation Comments Ca Norm WB (test code = Ca Norm WB) 1.11 1.05-1.25 [facility] HospitalATHYROID [id number] 08:41:00 Test Item Value Reference Range Interpretation Comments Ca Ion WB (test code = Ca Ion WB) 1.09 1.05-1.25 [facility] [id number] 08:41:00 Test Item Value Reference Range Interpretation Comments Ca Norm WB (test code = Ca Norm WB) 1.11 1.05-1.25 [facility] [id number] 08:41:00 Test Item Value Reference Range Interpretation Comments Ca Ion WB (test code = Ca Ion WB) 1.09 1.05-1.25 [facility] HospitalannPHOEN[facility] MEMOR[facility] HOSPITALATHYROID [id number] 08:41:00 Test Item Value Reference Range Interpretation Comments Ca Norm WB (test code = Ca Norm WB) 1.11 1.05-1.25 [facility]2019-03-12 08:41:00 Test Item Value Reference Range Interpretation Comments Ca Ion WB (test code = Ca Ion WB) 1.09 1.05-1.25 [facility] [id number] 08:41:00 Test Item Value Reference Range Interpretation Comments Ca Norm WB (test code = Ca Norm WB) 1.11 1.05-1.25 [facility]2019-03-12 08:41:00 Test Item Value Reference Range Interpretation Comments Ca Ion WB (test code = Ca Ion WB) 1.09 1.05-1.25 [facility] [id number] 04:19:00 Test Item Value Reference Range Interpretation Comments RBC product (test code Product available = RBC product) 2(05/13/18 11:19 PM) [facility] [id number] 04:19:00 Test Item Value Reference Range Interpretation Comments RBC product (test code Product available = RBC product) 2(05/13/18 11:19 PM) [facility] [id number] 04:19:00 Test Item Value Reference Range Interpretation Comments RBC product (test code Product available = RBC product) 2(05/13/18 11:19 PM) [facility] B[facility] [id number] 04:19:00 Test Item Value Reference Range Interpretation Comments RBC product (test code Product available = RBC product) 2(05/13/18 11:19 PM) [facility] [id number] 04:19:00 Test Item Value Reference Range Interpretation Comments RBC product (test code Product available = RBC product) 2(05/13/18 11:19 PM) [facility] [id number] 02:42:00 Test Item Value Reference Range Interpretation Comments RBC product (test code Product available = RBC product) 3(05/13/18 9:42 PM) [facility] [id number] 02:42:00 Test Item Value Reference Range Interpretation Comments RBC product (test code Product available = RBC product) 3(05/13/18 9:42 PM) [facility] [id number] 02:42:00 Test Item Value Reference Range Interpretation Comments RBC product (test code Product available = RBC product) 3(05/13/18 9:42 PM) [facility] [id number] 02:42:00 Test Item Value Reference Range Interpretation Comments RBC product (test code Product available = RBC product) 3(05/13/18 9:42 PM) [facility] [id number] 02:42:00 Test Item Value Reference Range Interpretation Comments RBC product (test code Product available = RBC product) 3(05/13/18 9:42 PM) [facility] [id number] 01:42:00 Test Item Value Reference Range Interpretation Comments Lactic Acid Lvl (test code = Lactic 0.9 0.5-2.2 Acid Lvl) [facility] [id number] 01:42:00 Test Item Value Reference Range Interpretation Comments PT (test code = PT) 13.9 s 12.0-14.7 [facility] CenterBetgerlSUNBBAZZYL3651-70-22 01:42:00 Test Item Value Reference Range Interpretation Comments INR (test code = INR) 1.09 1 0.85-1.17 [facility] CenterUommtocDVAHFNTZKS0189-18-72 01:42:00 Test Item Value Reference Range Interpretation Comments PTT (test code = PTT) 29.8 s 22.9-35.8 [facility] [id number] 01:42:00 Test Item Value Reference Range Interpretation Comments Lactic Acid Lvl (test code = Lactic 0.9 0.5-2.2 Acid Lvl) [facility] CenterEmnjtvzUMCHQICIXC0440-09-46 01:42:00 Test Item Value Reference Range Interpretation Comments PT (test code = PT) 13.9 s 12.0-14.7 [facility] CenterCalzjesCCLBDPQFXO1298-59-49 01:42:00 Test Item Value Reference Range Interpretation Comments INR (test code = INR) 1.09 1 0.85-1.17 [facility] CenterFddsfdqHJDOVXOWAX6011-34-17 01:42:00 Test Item Value Reference Range Interpretation Comments PTT (test code = PTT) 29.8 s 22.9-35.8 [facility]2019-03-12 01:42:00 Test Item Value Reference Range Interpretation Comments Lactic Acid Lvl (test code = Lactic 0.9 0.5-2.2 Acid Lvl) [facility] CenterNsdqtaqOVPPISVDOC9523-53-80 01:42:00 Test Item Value Reference Range Interpretation Comments PT (test code = PT) 13.9 s 12.0-14.7 [facility] CenterKvdlzeeSCVGTRTIHU3124-21-98 01:42:00 Test Item Value Reference Range Interpretation Comments INR (test code = INR) 1.09 1 0.85-1.17 [facility] CenterZnnzcwpACIBZGRZNC5726-42-93 01:42:00 Test Item Value Reference Range Interpretation Comments PTT (test code = PTT) 29.8 s 22.9-35.8 [facility]2019-03-12 01:42:00 Test Item Value Reference Range Interpretation Comments Lactic Acid Lvl (test code = Lactic 0.9 0.5-2.2 Acid Lvl) [facility] CenterJtpwwzxWLFBMKPZEH6305-01-16 01:42:00 Test Item Value Reference Range Interpretation Comments PT (test code = PT) 13.9 s 12.0-14.7 [facility] CenterVhbielhCTTUJOSCQV8458-03-61 01:42:00 Test Item Value Reference Range Interpretation Comments INR (test code = INR) 1.09 1 0.85-1.17 [place] [id number] 01:42:00 Test Item Value Reference Range Interpretation Comments PTT (test code = PTT) 29.8 s 22.9-35.8 [facility]2019-03-12 01:42:00 Test Item Value Reference Range Interpretation Comments Lactic Acid Lvl (test code = Lactic 0.9 0.5-2.2 Acid Lvl) [facility] CenterZtbqpyzVMNIIXUYXN8798-16-13 01:42:00 Test Item Value Reference Range Interpretation Comments PT (test code = PT) 13.9 s 12.0-14.7 [facility] CenterNurewhiYHLRETIPMA9242-87-14 01:42:00 Test Item Value Reference Range Interpretation Comments INR (test code = INR) 1.09 1 0.85-1.17 [facility] CenterItyywfyXJAYMZQFSM9471-46-67 01:42:00 Test Item Value Reference Range Interpretation Comments PTT (test code = PTT) 29.8 s 22.9-35.8 [facility]: Addlyrswb9292-89-25 13:11:00 Test Item Value Reference Range Interpretation Comments Culture: Anaerobic No Anaerobes Isolated (test code = Culture: Anaerobic) [facility] Stain Gngiep5246-17-77 13:11:00 Test Item Value Reference Range Interpretation Comments Gram Stain Report No Wbc'S Or Organisms (test code = Gram Seen Stain Report) [facility] Fluid/Zzcizs7500-66-50 13:11:00 Test Item Value Reference Range Interpretation Comments Culture: Aspirate/Body Fluid/Tissue No Growth (test code = Culture: Aspirate/Body Fluid/Tissue) [facility] Mznihkdod5154-73-84 13:11:00 Test Item Value Reference Range Interpretation Comments Culture: Anaerobic No Anaerobes Isolated (test code = Culture: Anaerobic) [facility] Stain Jqsdyf1741-28-60 13:11:00 Test Item Value Reference Range Interpretation Comments Gram Stain Report No Wbc'S Or Organisms (test code = Gram Seen Stain Report) [facility]/Body Fluid/Xurbqf3860-05-99 13:11:00 Test Item Value Reference Range Interpretation Comments Culture: Aspirate/Body Fluid/Tissue No Growth (test code = Culture: Aspirate/Body Fluid/Tissue) [facility] Gezqvlqcj8212-00-26 13:11:00 Test Item Value Reference Range Interpretation Comments Culture: Anaerobic No Anaerobes Isolated (test code = Culture: Anaerobic) [facility] Stain Zyrbug6597-70-29 13:11:00 Test Item Value Reference Range Interpretation Comments Gram Stain Report No Wbc'S Or Organisms (test code = Gram Seen Stain Report) [facility]/Body Fluid/Xpxpqz8093-60-04 13:11:00 Test Item Value Reference Range Interpretation Comments Culture: Aspirate/Body Fluid/Tissue No Growth (test code = Culture: Aspirate/Body Fluid/Tissue) [facility] Ipjedsgbw7204-64-99 13:11:00 Test Item Value Reference Range Interpretation Comments Culture: Anaerobic No Anaerobes Isolated (test code = Culture: Anaerobic) [facility] Hclqsu8658-60-91 13:11:00 Test Item Value Reference Range Interpretation Comments Gram Stain Report No Wbc'S Or Organisms (test code = Gram Seen Stain Report) [facility]: Aspirate/Body Fluid/Kgjsjd9176-87-03 13:11:00 Test Item Value Reference Range Interpretation Comments Culture: Aspirate/Body Fluid/Tissue No Growth (test code = Culture: Aspirate/Body Fluid/Tissue) [facility]: Skqzarvcl6538-48-19 13:11:00 Test Item Value Reference Range Interpretation Comments Culture: Anaerobic No Anaerobes Isolated (test code = Culture: Anaerobic) [facility] Stain Vizmeh5639-42-01 13:11:00 Test Item Value Reference Range Interpretation Comments Gram Stain Report No Wbc'S Or Organisms (test code = Gram Seen Stain Report) [facility]: Aspirate/Body Fluid/Wkwhze2380-46-53 13:11:00 Test Item Value Reference Range Interpretation Comments Culture: Aspirate/Body Fluid/Tissue No Growth (test code = Culture: Aspirate/Body Fluid/Tissue) [facility] CenterCruwbsaVKVRLRYDBI1986-77-95 10:03:00 Test Item Value Reference Range Interpretation Comments Sed Rate (test code = 33 See_Comment [Auto mated message] The Sed Rate) system which ge nerated this result transmit garrett reference range : <=15. The reference range was not used to interpr et this result as cassie l/abnormal. [facility] CenterOjlunmhAMUWXYMWCY9438-86-21 10:03:00 Test Item Value Reference Range Interpretation Comments PTT (test code = PTT) 32.6 s 22.9-35.8 [facility] HospitalVinlxxaLSPMNSRSRH9399-85-40 10:03:00 Test Item Value Reference Range Interpretation Comments C-REACTIVE PROTEIN (test code = 12.4 C-REACTIVE PROTEIN) [facility] CenterRwizypdQQGXDADBTW9879-46-60 10:03:00 Test Item Value Reference Range Interpretation Comments Sed Rate (test code = 33 See_Comment [Auto mated message] The Sed Rate) system which ge nerated this result transmit garrett reference range : <=15. The reference range was not used to interpr et this result as cassie l/abnormal. [facility] CenterUxxdiifCDRJCWKIHC4914-90-07 10:03:00 Test Item Value Reference Range Interpretation Comments PTT (test code = PTT) 32.6 s 22.9-35.8 [facility] CampusBnkepydVVDMOIRIGH3516-82-01 10:03:00 Test Item Value Reference Range Interpretation Comments C-REACTIVE PROTEIN (test code = 12.4 C-REACTIVE PROTEIN) [facility] CenterJuttlywJHLMMTWICN7160-14-89 10:03:00 Test Item Value Reference Range Interpretation Comments Sed Rate (test code = 33 See_Comment [Auto mated message] The Sed Rate) system which ge nerated this result transmit garrett reference range : <=15. The reference range was not used to interpr et this result as cassie l/abnormal. [facility] CenterYagehcfJCICHLRNBU4033-97-86 10:03:00 Test Item Value Reference Range Interpretation Comments PTT (test code = PTT) 32.6 s 22.9-35.8 [facility] CampusZjpxksoGVTDYNICMJ1186-22-91 10:03:00 Test Item Value Reference Range Interpretation Comments C-REACTIVE PROTEIN (test code = 12.4 C-REACTIVE PROTEIN) [facility] CenterTjyvtehFCQDLPHYOE0303-75-34 10:03:00 Test Item Value Reference Range Interpretation Comments Sed Rate (test code = 33 See_Comment [Auto mated message] The Sed Rate) system which ge nerated this result transmit garrett reference range : <=15. The reference range was not used to interpr et this result as cassie l/abnormal. [facility] CenterNdgjotpVOLZZSEAUR1847-28-04 10:03:00 Test Item Value Reference Range Interpretation Comments PTT (test code = PTT) 32.6 s 22.9-35.8 [facility] CampusWlzycsrVDNCOVXKVV6112-55-97 10:03:00 Test Item Value Reference Range Interpretation Comments C-REACTIVE PROTEIN (test code = 12.4 C-REACTIVE PROTEIN) [facility] CenterUzlqqvgHONGZKAEWL7966-18-51 10:03:00 Test Item Value Reference Range Interpretation Comments Sed Rate (test code = Sed Rate) 33 <=15 [facility] XbydllnIINIMDBCTC4782-98-13 10:03:00 Test Item Value Reference Range Interpretation Comments PTT (test code = PTT) 32.6 s 22.9-35.8 [facility] HospitalMwelzuhKFWLCEZHHS8492-58-03 10:03:00 Test Item Value Reference Range Interpretation Comments C-REACTIVE PROTEIN (test code = 12.4 C-REACTIVE PROTEIN) [facility] [id number] 01:00:00 Test Item Value Reference Range Interpretation Comments Antibody Scrn (test Negative (05/12/18 8:00 code = Antibody Scrn) PM) [facility] CTNFIPX9487-03-02 01:00:00 Test Item Value Reference Range Interpretation Comments ABO/Rh (test code = ABO/Rh) [facility] [id number] 01:00:00 Test Item Value Reference Range Interpretation Comments Antibody Scrn (test Negative (05/12/18 8:00 code = Antibody Scrn) PM) [facility] [id number] 01:00:00 Test Item Value Reference Range Interpretation Comments ABO/Rh (test code = ABO/Rh) A POS [facility] [employer] [id number] 01:00:00 Test Item Value Reference Range Interpretation Comments Antibody Scrn (test Negative (05/12/18 8:00 code = Antibody Scrn) PM) [facility] [id number] 01:00:00 Test Item Value Reference Range Interpretation Comments ABO/Rh (test code = ABO/Rh) A POS [facility] [id number] 01:00:00 Test Item Value Reference Range Interpretation Comments Antibody Scrn (test Negative (05/12/18 8:00 code = Antibody Scrn) PM) [facility] [id number] 01:00:00 Test Item Value Reference Range Interpretation Comments ABO/Rh (test code = ABO/Rh) A POS [facility] [id number] 01:00:00 Test Item Value Reference Range Interpretation Comments Antibody Scrn (test Negative (05/12/18 8:00 code = Antibody Scrn) PM) [facility] [id number] 01:00:00 Test Item Value Reference Range Interpretation Comments ABO/Rh (test code = ABO/Rh) A POS [facility]2019-03-10 09:58:00 Test Item Value Reference Range Interpretation Comments Bili Direct (test code no gt See_Comment [Aut omated message] The = Bili Direct) system which generated this result tra nsmitted reference range : <=0.3. The reference r ondina was not used to int erpret this result as cassie l/abnormal. [facility]2019-03-10 09:58:00 Test Item Value Reference Range Interpretation Comments Bili Indirect Unable to See_Comment [Automated (test code = Bili Calculate message] T he system Indirect) which generated this result transmitted reference range : <=1.0. The reference range was not used to interpret this result as normal/abnormal . [facility] CenterLkwxxciZCENXFGTAQ5020-15-96 09:58:00 Test Item Value Reference Range Interpretation Comments Sed Rate (test code = 30 See_Comment [Auto mated message] The Sed Rate) system which ge nerated this result transmit garrett reference range : <=15. The reference range was not used to interpr et this result as cassie l/abnormal. [facility] CenterFuyqluvECXEHBDIBX2325-94-41 09:58:00 Test Item Value Reference Range Interpretation Comments Microcyte (test code = 1+ *ABN*(05/12/18 Microcyte) 4:58 AM) [facility] HospitalSwrsqfcETKBUQDHJT5774-35-81 09:58:00 Test Item Value Reference Range Interpretation Comments C-REACTIVE PROTEIN (test code = 9.8 C-REACTIVE PROTEIN) [facility]2019-03-10 09:58:00 Test Item Value Reference Range Interpretation Comments Bili Direct (test code no gt See_Comment [Aut omated message] The = Bili Direct) system which generated this result tra nsmitted reference range : <=0.3. The reference r ondina was not used to int erpret this result as cassie l/abnormal. [facility]2019-03-10 09:58:00 Test Item Value Reference Range Interpretation Comments Bili Indirect Unable to See_Comment [Automated (test code = Bili Calculate message] T he system Indirect) which generated this result transmitted reference range : <=1.0. The reference range was not used to interpret this result as normal/abnormal . [facility] CenterSbzzfezSMPYUGYDPF3804-37-06 09:58:00 Test Item Value Reference Range Interpretation Comments Sed Rate (test code = 30 See_Comment [Auto mated message] The Sed Rate) system which ge nerated this result transmit garrett reference range : <=15. The reference range was not used to interpr et this result as cassie l/abnormal. [facility] CenterUljpkelWDUYFAQQUE2620-06-89 09:58:00 Test Item Value Reference Range Interpretation Comments Microcyte (test code = 1+ *ABN*(05/12/18 Microcyte) 4:58 AM) [facility] CampusCuqpkmvSWVSVYFBQY8602-07-05 09:58:00 Test Item Value Reference Range Interpretation Comments C-REACTIVE PROTEIN (test code = 9.8 C-REACTIVE PROTEIN) [facility]2019-03-10 09:58:00 Test Item Value Reference Range Interpretation Comments Bili Direct (test code no gt See_Comment [Aut omated message] The = Bili Direct) system which generated this result tra nsmitted reference range : <=0.3. The reference r ondina was not used to int erpret this result as cassie l/abnormal. [facility]2019-03-10 09:58:00 Test Item Value Reference Range Interpretation Comments Bili Indirect Unable to See_Comment [Automated (test code = Bili Calculate message] T he system Indirect) which generated this result transmitted reference range : <=1.0. The reference range was not used to interpret this result as normal/abnormal . [facility] CenterIywujdxBUCSYITIWO3175-99-26 09:58:00 Test Item Value Reference Range Interpretation Comments Sed Rate (test code = 30 See_Comment [Auto mated message] The Sed Rate) system which ge nerated this result transmit garrett reference range : <=15. The reference range was not used to interpr et this result as cassie l/abnormal. [facility] CenterFrgavfdMZNVZDWYMW4204-56-28 09:58:00 Test Item Value Reference Range Interpretation Comments Microcyte (test code = 1+ *ABN*(05/12/18 Microcyte) 4:58 AM) [facility] CampusTqulxlsNMMLDANNEB3894-85-64 09:58:00 Test Item Value Reference Range Interpretation Comments C-REACTIVE PROTEIN (test code = 9.8 C-REACTIVE PROTEIN) [facility]2019-03-10 09:58:00 Test Item Value Reference Range Interpretation Comments Bili Direct (test code no gt See_Comment [Aut omated message] The = Bili Direct) system which generated this result tra nsmitted reference range : <=0.3. The reference r ondina was not used to int erpret this result as cassie l/abnormal. [facility]2019-03-10 09:58:00 Test Item Value Reference Range Interpretation Comments Bili Indirect Unable to See_Comment [Automated (test code = Bili Calculate message] T he system Indirect) which generated this result transmitted reference range : <=1.0. The reference range was not used to interpret this result as normal/abnormal . [facility] CenterQbsvfyjNSSNSAJBGC2716-76-46 09:58:00 Test Item Value Reference Range Interpretation Comments Sed Rate (test code = 30 See_Comment [Auto mated message] The Sed Rate) system which ge nerated this result transmit garrett reference range : <=15. The reference range was not used to interpr et this result as cassie l/abnormal. [facility] CenterSgfygktFWVEYNECOM0914-79-85 09:58:00 Test Item Value Reference Range Interpretation Comments Microcyte (test code = 1+ *ABN*(05/12/18 Microcyte) 4:58 AM) [facility] CampusGkkkqhxTNWZLJEZCT9261-61-09 09:58:00 Test Item Value Reference Range Interpretation Comments C-REACTIVE PROTEIN (test code = 9.8 C-REACTIVE PROTEIN) [facility]2019-03-10 09:58:00 Test Item Value Reference Range Interpretation Comments Bili Direct (test code = Bili Direct) no gt <=0.3 [facility]2019-03-10 09:58:00 Test Item Value Reference Range Interpretation Comments Bili Indirect (test code Unable to Calculate <=1.0 = Bili Indirect) [facility] CenterEjerrvlIFRRAWRJJA5688-07-55 09:58:00 Test Item Value Reference Range Interpretation Comments Sed Rate (test code = Sed Rate) 30 <=15 [facility] CenterPuxkqynYLXVKANBNB7162-30-12 09:58:00 Test Item Value Reference Range Interpretation Comments Microcyte (test code = 1+ *ABN*(05/12/18 Microcyte) 4:58 AM) [facility] CampusElppghhDCPKTCNUNZ6947-00-45 09:58:00 Test Item Value Reference Range Interpretation Comments C-REACTIVE PROTEIN (test code = 9.8 C-REACTIVE PROTEIN) [facility]2019-03-09 10:50:00 Test Item Value Reference Range Interpretation Comments Bili Indirect Unable to See_Comment [Automated (test code = Bili Calculate message] T he system Indirect) which generated this result transmitted reference range : <=1.0. The reference range was not used to interpret this result as normal/abnormal . [facility]2019-03-09 10:50:00 Test Item Value Reference Range Interpretation Comments Bili Direct (test code no gt See_Comment [Aut omated message] The = Bili Direct) system which generated this result tra nsmitted reference range : <=0.3. The reference r ondina was not used to int erpret this result as cassie l/abnormal. [facility] CenterFlyskarBYYEUYUNMG9349-79-90 10:50:00 Test Item Value Reference Range Interpretation Comments Sed Rate (test code = 34 See_Comment [Auto mated message] The Sed Rate) system which ge nerated this result transmit garrett reference range : <=15. The reference range was not used to interpr et this result as cassie l/abnormal. [facility] CenterPaunrguRQATNZNLHQ1927-71-08 10:50:00 Test Item Value Reference Range Interpretation Comments Microcyte (test code = 1+ *ABN*(05/11/18 4:50 Microcyte) AM) [facility] CampusYhlysijZNAFMZVHWU7152-81-56 10:50:00 Test Item Value Reference Range Interpretation Comments C-REACTIVE PROTEIN (test code = 8.7 C-REACTIVE PROTEIN) [facility]2019-03-09 10:50:00 Test Item Value Reference Range Interpretation Comments Bili Indirect Unable to See_Comment [Automated (test code = Bili Calculate message] T he system Indirect) which generated this result transmitted reference range : <=1.0. The reference range was not used to interpret this result as normal/abnormal . [facility]2019-03-09 10:50:00 Test Item Value Reference Range Interpretation Comments Bili Direct (test code no gt See_Comment [Aut omated message] The = Bili Direct) system which generated this result tra nsmitted reference range : <=0.3. The reference r ondina was not used to int erpret this result as cassie l/abnormal. [facility] CenterVzsowdmYLZGBOSOEP0490-62-40 10:50:00 Test Item Value Reference Range Interpretation Comments Sed Rate (test code = 34 See_Comment [Auto mated message] The Sed Rate) system which ge nerated this result transmit garrett reference range : <=15. The reference range was not used to interpr et this result as cassie l/abnormal. [facility] CenterWyslabdXSTFEHJSEP6874-33-25 10:50:00 Test Item Value Reference Range Interpretation Comments Microcyte (test code = 1+ *ABN*(05/11/18 4:50 Microcyte) AM) [facility] CampusTemlstgGFEMWYBQOR6976-31-42 10:50:00 Test Item Value Reference Range Interpretation Comments C-REACTIVE PROTEIN (test code = 8.7 C-REACTIVE PROTEIN) [facility]2019-03-09 10:50:00 Test Item Value Reference Range Interpretation Comments Bili Indirect Unable to See_Comment [Automated (test code = Bili Calculate message] T he system Indirect) which generated this result transmitted reference range : <=1.0. The reference range was not used to interpret this result as normal/abnormal . [facility]2019-03-09 10:50:00 Test Item Value Reference Range Interpretation Comments Bili Direct (test code no gt See_Comment [Aut omated message] The = Bili Direct) system which generated this result tra nsmitted reference range : <=0.3. The reference r ondina was not used to int erpret this result as cassie l/abnormal. [facility] CenterItsrqrmNBOMOCXKDU8871-94-92 10:50:00 Test Item Value Reference Range Interpretation Comments Sed Rate (test code = 34 See_Comment [Auto mated message] The Sed Rate) system which ge nerated this result transmit garrett reference range : <=15. The reference range was not used to interpr et this result as cassie l/abnormal. [facility] CenterJbmzhdyOATYTZDGPK9074-49-88 10:50:00 Test Item Value Reference Range Interpretation Comments Microcyte (test code = 1+ *ABN*(05/11/18 4:50 Microcyte) AM) [facility] CampusTgjpfopSLNZYBRFSD2575-96-76 10:50:00 Test Item Value Reference Range Interpretation Comments C-REACTIVE PROTEIN (test code = 8.7 C-REACTIVE PROTEIN) [facility]2019-03-09 10:50:00 Test Item Value Reference Range Interpretation Comments Bili Indirect Unable to See_Comment [Automated (test code = Bili Calculate message] T he system Indirect) which generated this result transmitted reference range : <=1.0. The reference range was not used to interpret this result as normal/abnormal . [facility]2019-03-09 10:50:00 Test Item Value Reference Range Interpretation Comments Bili Direct (test code no gt See_Comment [Aut omated message] The = Bili Direct) system which generated this result tra nsmitted reference range : <=0.3. The reference r ondina was not used to int erpret this result as cassie l/abnormal. [facility] [id number] 10:50:00 Test Item Value Reference Range Interpretation Comments Sed Rate (test code = 34 See_Comment [Auto mated message] The Sed Rate) system which ge nerated this result transmit garrett reference range : <=15. The reference range was not used to interpr et this result as cassie l/abnormal. [facility] Cent[id number] 10:50:00 Test Item Value Reference Range Interpretation Comments Microcyte (test code = 1+ *ABN*(05/11/18 4:50 Microcyte) AM) [id number] 10:50:00 Test Item Value Reference Range Interpretation Comments C-REACTIVE PROTEIN (test code = 8.7 C-REACTIVE PROTEIN) [facility]2019-03-09 10:50:00 Test Item Value Reference Range Interpretation Comments Bili Indirect (test code Unable to Calculate <=1.0 = Bili Indirect) [facility]2019-03-09 10:50:00 Test Item Value Reference Range Interpretation Comments Bili Direct (test code = Bili Direct) no gt <=0.3 [facility] CenterDhfvmzlWKNDTXMSCJ7886-27-26 10:50:00 Test Item Value Reference Range Interpretation Comments Sed Rate (test code = Sed Rate) 34 <=15 [facility] CenterQizseqsLBQXEOANDL2419-05-16 10:50:00 Test Item Value Reference Range Interpretation Comments Microcyte (test code = 1+ *ABN*(05/11/18 4:50 Microcyte) AM) [facility] C[id number] 10:50:00 Test Item Value Reference Range Interpretation Comments C-REACTIVE PROTEIN (test code = 8.7 C-REACTIVE PROTEIN) [facility] SoteroannMEROPENEM:SUSC:PT:ISOLATE:ORDQN:[id number] 23:28:00 Test Item Value Reference Range Interpretation Comments Gram Stain Report Rare WBC's No Organisms (test code = Gram Seen Stain Report) [facility] SoteroannMEROPENEM:SUSC:PT:ISOLATE:ORDQN:[id number] 23:28:00 Test Item Value Reference Range Interpretation Comments Culture: Growth In Subculture Broth Wound/Abscess Only : Staphylococcus w/Gram Stain (test Species, Not S. aureus code = Culture: Wound/Abscess w/Gram Stain) [facility] SoteroannMEROPENEM:SUSC:PT:ISOLATE:ORDQN:[id number] 23:28:00 Test Item Value Reference Range Interpretation Comments Staphylococcus Species, Staphylococcus Not S. aureus (test Species, Not S. aureus code = Staphylococcus Species, Not S. aureus) [facility] SoteroannMEROPENEM:SUSC:PT:ISOLATE:ORDQN:[id number] 23:28:00 Test Item Value Reference Range Interpretation Comments Gram Stain Report Rare WBC's No Organisms (test code = Gram Seen Stain Report) [facility] HermannMEROPENEM:SUSC:PT:ISOLATE:ORDQN:[id number] 23:28:00 Test Item Value Reference Range Interpretation Comments Culture: Growth In Subculture Broth Wound/Abscess Only : Staphylococcus w/Gram Stain (test Species, Not S. aureus code = Culture: Wound/Abscess w/Gram Stain) [facility] SoteroannMEROPENEM:SUSC:PT:ISOLATE:ORDQN:[id number] 23:28:00 Test Item Value Reference Range Interpretation Comments Staphylococcus Species, Staphylococcus Not S. aureus (test Species, Not S. aureus code = Staphylococcus Species, Not S. aureus) [facility] HermannMEROPENEM:SUSC:PT:ISOLATE:ORDQN:[id number] 23:28:00 Test Item Value Reference Range Interpretation Comments Gram Stain Report Rare WBC's No Organisms (test code = Gram Seen Stain Report) [facility] SoteroannMEROPENEM:SUSC:PT:ISOLATE:ORDQN:[id number] 23:28:00 Test Item Value Reference Range Interpretation Comments Culture: Growth In Subculture Broth Wound/Abscess Only : Staphylococcus w/Gram Stain (test Species, Not S. aureus code = Culture: Wound/Abscess w/Gram Stain) [facility] HermannMEROPENEM:SUSC:PT:ISOLATE:ORDQN:[id number] 23:28:00 Test Item Value Reference Range Interpretation Comments Staphylococcus Species, Staphylococcus Not S. aureus (test Species, Not S. aureus code = Staphylococcus Species, Not S. aureus) [facility]annMEROPENEM:SUSC:PT:ISOLATE:ORDQN:[id number] 23:28:00 Test Item Value Reference Range Interpretation Comments Gram Stain Report Rare WBC's No Organisms (test code = Gram Seen Stain Report) [facility] HospitalannMEROPENEM:SUSC:PT:ISOLATE:ORDQN:[id number] 23:28:00 Test Item Value Reference Range Interpretation Comments Culture: Growth In Subculture Broth Wound/Abscess Only : Staphylococcus w/Gram Stain (test Species, Not S. aureus code = Culture: Wound/Abscess w/Gram Stain) [facility]annMEROPENEM:SUSC:PT:ISOLATE:ORDQN:[id number] 23:28:00 Test Item Value Reference Range Interpretation Comments Staphylococcus Species, Staphylococcus Not S. aureus (test Species, Not S. aureus code = Staphylococcus Species, Not S. aureus) [facility]annMEROPENEM:SUSC:PT:ISOLATE:ORDQN:[id number] 23:28:00 Test Item Value Reference Range Interpretation Comments Gram Stain Report Rare WBC's No Organisms (test code = Gram Seen Stain Report) [facility]annMEROPENEM:SUSC:PT:ISOLATE:ORDQN:[id number] 23:28:00 Test Item Value Reference Range Interpretation Comments Culture: Growth In Subculture Broth Wound/Abscess Only : Staphylococcus w/Gram Stain (test Species, Not S. aureus code = Culture: Wound/Abscess w/Gram Stain) [facility]annMEROPENEM:SUSC:PT:ISOLATE:ORDQN:[id number] 23:28:00 Test Item Value Reference Range Interpretation Comments Staphylococcus Species, Staphylococcus Not S. aureus (test Species, Not S. aureus code = Staphylococcus Species, Not S. aureus) [facility]2019-03-08 17:06:00 Test Item Value Reference Range Interpretation Comments Procalcitonin Lvl (test no gt See_Comment [Au tomated message] code = Procalcitonin Lvl) Th e system which generated this result transmitted ref erence range: <=0.10. The reference range was not used to interpr et this result as normal/abnormal . [facility]2019-03-08 17:06:00 Test Item Value Reference Range Interpretation Comments Procalcitonin Lvl (test no gt See_Comment [Au tomated message] code = Procalcitonin Lvl) Th e system which generated this result transmitted ref erence range: <=0.10. The reference range was not used to interpr et this result as normal/abnormal . [place] [id number] 17:06:00 Test Item Value Reference Range Interpretation Comments Procalcitonin Lvl (test no gt See_Comment [Au tomated message] code = Procalcitonin Lvl) Th e system which generated this result transmitted ref erence range: <=0.10. The reference range was not used to interpr et this result as normal/abnormal . [facility]2019-03-08 17:06:00 Test Item Value Reference Range Interpretation Comments Procalcitonin Lvl (test no gt See_Comment [Au tomated message] code = Procalcitonin Lvl) Th e system which generated this result transmitted ref erence range: <=0.10. The reference range was not used to interpr et this result as normal/abnormal . [facility]2019-03-08 17:06:00 Test Item Value Reference Range Interpretation Comments Procalcitonin Lvl (test code = no gt <=0.10 Procalcitonin Lvl) [facility] CenterZhefaqtCNAXMIUBUZ6572-08-27 09:26:00 Test Item Value Reference Range Interpretation Comments Microcyte (test code = 1+ *ABN*(05/10/18 3:26 Microcyte) AM) [facility] CenterJihebwjQHGYFWRPML0921-39-27 09:26:00 Test Item Value Reference Range Interpretation Comments Microcyte (test code = 1+ *ABN*(05/10/18 3:26 Microcyte) AM) [facility] Cent[id number] 09:26:00 Test Item Value Reference Range Interpretation Comments Microcyte (test code = 1+ *ABN*(05/10/18 3:26 Microcyte) AM) [facility] C[id number] 09:26:00 Test Item Value Reference Range Interpretation Comments Microcyte (test code = 1+ *ABN*(05/10/18 3:26 Microcyte) AM) [facility] CenterAtzkuaxOKDHAQIOWD0336-68-80 09:26:00 Test Item Value Reference Range Interpretation Comments Microcyte (test code = 1+ *ABN*(05/10/18 3:26 Microcyte) AM) [facility] [id number] 20:34:00 Test Item Value Reference Range Interpretation Comments Plt Morph (test code = Normal (05/09/18 2:34 PM) Plt Morph) [facility] CenterXwnvcciZRGNGDJHCX8508-48-30 20:34:00 Test Item Value Reference Range Interpretation Comments Plt Morph (test code = Normal (05/09/18 2:34 PM) Plt Morph) [facility] [id number] 20:34:00 Test Item Value Reference Range Interpretation Comments Plt Morph (test code = Normal (05/09/18 2:34 PM) Plt Morph) [facility] CenterAyuoltwGGNGVCYGEK0769-28-06 20:34:00 Test Item Value Reference Range Interpretation Comments Plt Morph (test code = Normal (05/09/18 2:34 PM) Plt Morph) [facility] CenterTsebaoaCFHDLFTGGT5580-04-78 20:34:00 Test Item Value Reference Range Interpretation Comments Plt Morph (test code = Normal (05/09/18 2:34 PM) Plt Morph) [facility]CARD[facility] [id number] 10:47:00 Test Item Value Reference Range Interpretation Comments BNP (test code = BNP) [address] [facility] [id number] 10:47:00 Test Item Value Reference Range Interpretation Comments Phosphorus (test code = Phosphorus) 3.3 2.5-4.5 [facility] HospitalCHEM [id number] 10:47:00 Test Item Value Reference Range Interpretation Comments Magnesium Lvl (test code = Magnesium 2.2 1.8-2.4 Lvl) [facility] HospitalCHEM [id number] 10:47:00 Test Item Value Reference Range Interpretation Comments Albumin Lvl (test code = Albumin Lvl) 2.3 3.5-5.0 [facility]2018-12-28 10:47:00 Test Item Value Reference Range Interpretation Comments Creatinine Lvl (test code = Creatinine 0.81 0.50-1.40 Lvl) [facility]2018-12-28 10:47:00 Test Item Value Reference Range Interpretation Comments ALT (test code = ALT) 14 See_Comment [Auto mated message] The system which ge nerated this result transmit garrett reference range : <=65. The reference range was not used to interpr et this result as cassie l/abnormal. [facility]2018-12-28 10:47:00 Test Item Value Reference Range Interpretation Comments AST (test code = AST) 9 See_Comment [Auto mated message] The system which ge nerated this result transmit garrett reference range : <=37. The reference range was not used to interpr et this result as cassie l/abnormal. [facility]2018-12-28 10:47:00 Test Item Value Reference Range Interpretation Comments eGFR (test code = eGFR) 97 [facility]2018-12-28 10:47:00 Test Item Value Reference Range Interpretation Comments Sodium Lvl (test code = Sodium Lvl) 143 135-145 [facility]2018-12-28 10:47:00 Test Item Value Reference Range Interpretation Comments Potassium Lvl (test code = Potassium 3.3 3.5-5.1 Lvl) [facility]2018-12-28 10:47:00 Test Item Value Reference Range Interpretation Comments Chloride Lvl (test code = Chloride Lvl) 107 95-109 [facility]2018-12-28 10:47:00 Test Item Value Reference Range Interpretation Comments Total Protein (test code = Total 6.7 6.4-8.4 Protein) [facility]2018-12-28 10:47:00 Test Item Value Reference Range Interpretation Comments Bili Total (test code = Bili Total) 0.7 0.2-1.3 [place] 416248-12-28 10:47:00 Test Item Value Reference Range Interpretation Comments Calcium Lvl (test code = Calcium Lvl) 8.3 8.5-10.5 [facility]2018-12-28 10:47:00 Test Item Value Reference Range Interpretation Comments CO2 (test code = CO2) 29 24-32 [facility]2018-12-28 10:47:00 Test Item Value Reference Range Interpretation Comments BUN (test code = BUN) 14 7-22 [facility]2018-12-28 10:47:00 Test Item Value Reference Range Interpretation Comments Glucose Lvl (test code = Glucose Lvl) 128 70-99 [facility]2018-12-28 10:47:00 Test Item Value Reference Range Interpretation Comments Alk Phos (test code = Alk Phos) 100 39-136 [facility]2018-12-28 10:47:00 Test Item Value Reference Range Interpretation Comments B/C Ratio (test code = B/C Ratio) 17 1 6-25 [facility]2018-12-28 10:47:00 Test Item Value Reference Range Interpretation Comments Globulin (test code = Globulin) 4.4 2.7-4.2 [facility]2018-12-28 10:47:00 Test Item Value Reference Range Interpretation Comments A/G Ratio (test code = A/G Ratio) 0.5 1 0.7-1.6 [facility]2018-12-28 10:47:00 Test Item Value Reference Range Interpretation Comments AGAP (test code = AGAP) 10.3 10.0-20.0 [facility] Cent[id number] 10:47:00 Test Item Value Reference Range Interpretation Comments Microcyte (test code = 1+ *ABN*(03/01/18 Microcyte) 4:47 AM) [facility] Cent[id number] 10:47:00 Test Item Value Reference Range Interpretation Comments Lymphocytes # (test code = Lymphocytes 1.4 1.0-5.5 #) [facility] CenterSkksbkxJBRXSCNVQD9944-48-08 10:47:00 Test Item Value Reference Range Interpretation Comments Monocytes # (test code 0.8 See_Comment [Aut omated message] The = Monocytes #) system which generated this result tra nsmitted reference range : <=0.8. The reference r ondina was not used to int erpret this result as normal/abnormal . [facility] CenterDiffgvqAAJOVBWJEH8020-11-68 10:47:00 Test Item Value Reference Range Interpretation Comments Segs (test code = Segs) 78.3 45.0-75.0 [facility] CenterBtdtogaHXNDIWMSOZ9712-90-61 10:47:00 Test Item Value Reference Range Interpretation Comments Basophils (test code = 0.4 See_Comment [Aut omated message] The Basophils) system which ge nerated this result tra nsmitted reference range : <=1.0. The reference r ondina was not used to int erpret this result as normal/abnormal . [facility] CenterVuehbiwABMKRVVETT0060-22-35 10:47:00 Test Item Value Reference Range Interpretation Comments Neutrophils # (test code = Neutrophils 8.1 1.5-8.1 #) [facility] CenterJcepiizYXGACZUPBS0481-10-61 10:47:00 Test Item Value Reference Range Interpretation Comments Monocytes (test code = Monocytes) 7.9 2.0-12.0 [facility] CenterWshajflTEWTDXIZUV0751-16-94 10:47:00 Test Item Value Reference Range Interpretation Comments Lymphocytes (test code = Lymphocytes) 13.4 20.0-40.0 [facility] CenterOxseaneELZRDWPKKD1816-44-17 10:47:00 Test Item Value Reference Range Interpretation Comments Hct (test code = Hct) 27.0 42.0-54.0 [facility] CenterFcdtmloKDJIRAOXKE7538-99-14 10:47:00 Test Item Value Reference Range Interpretation Comments MCV (test code = MCV) 78.7 80.0-94.0 [facility] CenterOcsdbldQJAIOJGCLV7488-93-29 10:47:00 Test Item Value Reference Range Interpretation Comments MCHC (test code = MCHC) 32.7 32.0-36.0 [facility] CenterJejdzwtPZMFZDSBTA9410-67-80 10:47:00 Test Item Value Reference Range Interpretation Comments MCH (test code = MCH) 25.8 pg 27.0-31.0 [facility] CenterClxbrvkQPUPEBHNPT1491-11-87 10:47:00 Test Item Value Reference Range Interpretation Comments MPV (test code = MPV) 8.2 7.4-10.4 [facility] CenterZagmadaAKCFCUXQIS5417-46-37 10:47:00 Test Item Value Reference Range Interpretation Comments Platelet (test code = Platelet) 475 133-450 [facility] CenterKgarbrjQTNEWUGVGT9126-05-08 10:47:00 Test Item Value Reference Range Interpretation Comments RDW (test code = RDW) 17.9 11.5-14.5 [facility] CenterEkrdgjbJEVYGZWSOA7593-34-90 10:47:00 Test Item Value Reference Range Interpretation Comments RBC (test code = RBC) 3.42 4.70-6.10 [facility]rjsdmlPZEJXLVAHM5006-14-24 10:47:00 Test Item Value Reference Range Interpretation Comments Hgb (test code = Hgb) 8.8 14.0-18.0 [facility]LesxvycRGHSUWFJPE8319-91-68 10:47:00 Test Item Value Reference Range Interpretation Comments WBC (test code = WBC) 10.3 3.7-10.4 [facility] HospitalCARDIAC UXSUWRO2265-65-29 10:47:00 Test Item Value Reference Range Interpretation Comments BNP (test code = BNP) 288 [facility]2018-12-28 10:47:00 Test Item Value Reference Range Interpretation Comments Phosphorus (test code = Phosphorus) 3.3 2.5-4.5 [facility]2018-12-28 10:47:00 Test Item Value Reference Range Interpretation Comments Magnesium Lvl (test code = Magnesium 2.2 1.8-2.4 Lvl) [facility]2018-12-28 10:47:00 Test Item Value Reference Range Interpretation Comments Albumin Lvl (test code = Albumin Lvl) 2.3 3.5-5.0 [facility]2018-12-28 10:47:00 Test Item Value Reference Range Interpretation Comments Creatinine Lvl (test code = Creatinine 0.81 0.50-1.40 Lvl) [facility]2018-12-28 10:47:00 Test Item Value Reference Range Interpretation Comments ALT (test code = ALT) 14 See_Comment [Auto mated message] The system which ge nerated this result transmit garrett reference range : <=65. The reference range was not used to interpr et this result as cassie l/abnormal. [facility]2018-12-28 10:47:00 Test Item Value Reference Range Interpretation Comments AST (test code = AST) 9 See_Comment [Auto mated message] The system which ge nerated this result transmit garrett reference range : <=37. The reference range was not used to interpr et this result as cassie l/abnormal. [facility]2018-12-28 10:47:00 Test Item Value Reference Range Interpretation Comments eGFR (test code = eGFR) 97 [facility]2018-12-28 10:47:00 Test Item Value Reference Range Interpretation Comments Sodium Lvl (test code = Sodium Lvl) 143 135-145 [facility]2018-12-28 10:47:00 Test Item Value Reference Range Interpretation Comments Potassium Lvl (test code = Potassium 3.3 3.5-5.1 Lvl) [facility]2018-12-28 10:47:00 Test Item Value Reference Range Interpretation Comments Chloride Lvl (test code = Chloride Lvl) 107 95-109 [facility]2018-12-28 10:47:00 Test Item Value Reference Range Interpretation Comments Total Protein (test code = Total 6.7 6.4-8.4 Protein) [facility]2018-12-28 10:47:00 Test Item Value Reference Range Interpretation Comments Bili Total (test code = Bili Total) 0.7 0.2-1.3 [facility]2018-12-28 10:47:00 Test Item Value Reference Range Interpretation Comments Calcium Lvl (test code = Calcium Lvl) 8.3 8.5-10.5 [facility]2018-12-28 10:47:00 Test Item Value Reference Range Interpretation Comments CO2 (test code = CO2) 29 24-32 [facility]2018-12-28 10:47:00 Test Item Value Reference Range Interpretation Comments BUN (test code = BUN) 14 7-22 [facility]2018-12-28 10:47:00 Test Item Value Reference Range Interpretation Comments Glucose Lvl (test code = Glucose Lvl) 128 70-99 [facility]2018-12-28 10:47:00 Test Item Value Reference Range Interpretation Comments Alk Phos (test code = Alk Phos) 100 39-136 [facility]2018-12-28 10:47:00 Test Item Value Reference Range Interpretation Comments B/C Ratio (test code = B/C Ratio) 17 1 6-25 [facility]2018-12-28 10:47:00 Test Item Value Reference Range Interpretation Comments Globulin (test code = Globulin) 4.4 2.7-4.2 [facility]2018-12-28 10:47:00 Test Item Value Reference Range Interpretation Comments A/G Ratio (test code = A/G Ratio) 0.5 1 0.7-1.6 [facility]2018-12-28 10:47:00 Test Item Value Reference Range Interpretation Comments AGAP (test code = AGAP) 10.3 10.0-20.0 [facility] CenterApzpsedXCLKJOFAWC3669-94-10 10:47:00 Test Item Value Reference Range Interpretation Comments Microcyte (test code = 1+ *ABN*(03/01/18 Microcyte) 4:47 AM) [facility] CenterPhuabioPEMKBWNHYH3375-47-45 10:47:00 Test Item Value Reference Range Interpretation Comments Lymphocytes # (test code = Lymphocytes 1.4 1.0-5.5 #) [facility] CenterThhopzdVGKJGKDTZG7764-89-53 10:47:00 Test Item Value Reference Range Interpretation Comments Monocytes # (test code 0.8 See_Comment [Aut omated message] The = Monocytes #) system which generated this result tra nsmitted reference range : <=0.8. The reference r ondina was not used to int erpret this result as normal/abnormal . [facility] CenterNuvziyiSMWWDVXSSQ6962-46-47 10:47:00 Test Item Value Reference Range Interpretation Comments Segs (test code = Segs) 78.3 45.0-75.0 [facility] CenterFkhphumLYCHPYDYHV0744-41-36 10:47:00 Test Item Value Reference Range Interpretation Comments Basophils (test code = 0.4 See_Comment [Aut omated message] The Basophils) system which ge nerated this result tra nsmitted reference range : <=1.0. The reference r ondina was not used to int erpret this result as normal/abnormal . [facility] CenterOfulsnaDCZUUOJUKC3037-97-30 10:47:00 Test Item Value Reference Range Interpretation Comments Neutrophils # (test code = Neutrophils 8.1 1.5-8.1 #) [facility] CenterJgekrdqSBYLQQAZRJ0397-79-26 10:47:00 Test Item Value Reference Range Interpretation Comments Monocytes (test code = Monocytes) 7.9 2.0-12.0 [facility] CenterJglucroKVWYBOOQDF4427-66-40 10:47:00 Test Item Value Reference Range Interpretation Comments Lymphocytes (test code = Lymphocytes) 13.4 20.0-40.0 [facility] CenterSuwphnaJZFDQNEZNX7473-34-91 10:47:00 Test Item Value Reference Range Interpretation Comments Hct (test code = Hct) 27.0 42.0-54.0 [facility] HospitalOnwjixtCPKLKWYARO5709-09-54 10:47:00 Test Item Value Reference Range Interpretation Comments MCV (test code = MCV) 78.7 80.0-94.0 [facility]SyzftdtURXNFMAMMC3175-68-06 10:47:00 Test Item Value Reference Range Interpretation Comments MCHC (test code = MCHC) 32.7 32.0-36.0 [facility]IcxolwmSPENOXATND4864-30-65 10:47:00 Test Item Value Reference Range Interpretation Comments MCH (test code = MCH) 25.8 pg 27.0-31.0 [facility] MichiganMjruwnrXDYSDOVEKE6096-80-09 10:47:00 Test Item Value Reference Range Interpretation Comments MPV (test code = MPV) 8.2 7.4-10.4 [facility]LV[facility]IDWA3201-41-46 10:47:00 Test Item Value Reference Range Interpretation Comments Platelet (test code = Platelet) 475 133-450 [facility]FdodhqhBZFJAMMSTH5669-65-04 10:47:00 Test Item Value Reference Range Interpretation Comments RDW (test code = RDW) 17.9 11.5-14.5 [facility]BglcykdNQGIAEIHYJ0885-02-04 10:47:00 Test Item Value Reference Range Interpretation Comments RBC (test code = RBC) 3.42 4.70-6.10 [facility]NcpizgaEPFQCYQGOY2010-08-09 10:47:00 Test Item Value Reference Range Interpretation Comments Hgb (test code = Hgb) 8.8 14.0-18.0 [facility]GktttfzDKJPITZNDR9323-55-59 10:47:00 Test Item Value Reference Range Interpretation Comments WBC (test code = WBC) 10.3 3.7-10.4 [facility] PYODQBJ0732-04-25 10:47:00 Test Item Value Reference Range Interpretation Comments BNP (test code = BNP) 288 [facility] HospitalCHEM PBNQY0805-36-64 10:47:00 Test Item Value Reference Range Interpretation Comments Phosphorus (test code = Phosphorus) 3.3 2.5-4.5 [facility] HospitalCHE[facility] [id number] 10:47:00 Test Item Value Reference Range Interpretation Comments Magnesium Lvl (test code = Magnesium 2.2 1.8-2.4 Lvl) [facility]2018-12-28 10:47:00 Test Item Value Reference Range Interpretation Comments Albumin Lvl (test code = Albumin Lvl) 2.3 3.5-5.0 [facility]2018-12-28 10:47:00 Test Item Value Reference Range Interpretation Comments Creatinine Lvl (test code = Creatinine 0.81 0.50-1.40 Lvl) [facility]2018-12-28 10:47:00 Test Item Value Reference Range Interpretation Comments ALT (test code = ALT) 14 See_Comment [Auto mated message] The system which ge nerated this result transmit garrett reference range : <=65. The reference range was not used to interpr et this result as cassie l/abnormal. [facility]2018-12-28 10:47:00 Test Item Value Reference Range Interpretation Comments AST (test code = AST) 9 See_Comment [Auto mated message] The system which ge nerated this result transmit garrett reference range : <=37. The reference range was not used to interpr et this result as cassie l/abnormal. [facility]2018-12-28 10:47:00 Test Item Value Reference Range Interpretation Comments eGFR (test code = eGFR) 97 [facility]2018-12-28 10:47:00 Test Item Value Reference Range Interpretation Comments Sodium Lvl (test code = Sodium Lvl) 143 135-145 [facility]2018-12-28 10:47:00 Test Item Value Reference Range Interpretation Comments Potassium Lvl (test code = Potassium 3.3 3.5-5.1 Lvl) [facility]2018-12-28 10:47:00 Test Item Value Reference Range Interpretation Comments Chloride Lvl (test code = Chloride Lvl) 107 95-109 [facility]2018-12-28 10:47:00 Test Item Value Reference Range Interpretation Comments Total Protein (test code = Total 6.7 6.4-8.4 Protein) [facility]2018-12-28 10:47:00 Test Item Value Reference Range Interpretation Comments Bili Total (test code = Bili Total) 0.7 0.2-1.3 [place] 416248-12-28 10:47:00 Test Item Value Reference Range Interpretation Comments Calcium Lvl (test code = Calcium Lvl) 8.3 8.5-10.5 [facility]2018-12-28 10:47:00 Test Item Value Reference Range Interpretation Comments CO2 (test code = CO2) 29 24-32 [facility]2018-12-28 10:47:00 Test Item Value Reference Range Interpretation Comments BUN (test code = BUN) 14 7-22 [facility]2018-12-28 10:47:00 Test Item Value Reference Range Interpretation Comments Glucose Lvl (test code = Glucose Lvl) 128 70-99 [facility]2018-12-28 10:47:00 Test Item Value Reference Range Interpretation Comments Alk Phos (test code = Alk Phos) 100 39-136 [facility]2018-12-28 10:47:00 Test Item Value Reference Range Interpretation Comments B/C Ratio (test code = B/C Ratio) 17 1 6-25 [facility]2018-12-28 10:47:00 Test Item Value Reference Range Interpretation Comments Globulin (test code = Globulin) 4.4 2.7-4.2 [facility]2018-12-28 10:47:00 Test Item Value Reference Range Interpretation Comments A/G Ratio (test code = A/G Ratio) 0.5 1 0.7-1.6 [facility]2018-12-28 10:47:00 Test Item Value Reference Range Interpretation Comments AGAP (test code = AGAP) 10.3 10.0-20.0 [facility] CenterCpxajxdPEGQHJHPFI1021-64-10 10:47:00 Test Item Value Reference Range Interpretation Comments Microcyte (test code = 1+ *ABN*(03/01/18 Microcyte) 4:47 AM) [facility] CenterEyfodddHYRKRRZNMM5707-02-75 10:47:00 Test Item Value Reference Range Interpretation Comments Lymphocytes # (test code = Lymphocytes 1.4 1.0-5.5 #) [facility] CenterPnmwzrcNNSXTXMKAA6513-23-57 10:47:00 Test Item Value Reference Range Interpretation Comments Monocytes # (test code 0.8 See_Comment [Aut omated message] The = Monocytes #) system which generated this result tra nsmitted reference range : <=0.8. The reference r ondina was not used to int erpret this result as normal/abnormal . [facility] CenterUfhktfbVDQOOILTVD0640-21-63 10:47:00 Test Item Value Reference Range Interpretation Comments Segs (test code = Segs) 78.3 45.0-75.0 [facility] CenterBncvuzcDJFMBCELDU3354-49-48 10:47:00 Test Item Value Reference Range Interpretation Comments Basophils (test code = 0.4 See_Comment [Aut omated message] The Basophils) system which ge nerated this result tra nsmitted reference range : <=1.0. The reference r ondina was not used to int erpret this result as normal/abnormal . [facility] CenterDrjwbakWDFNEOPHPZ2549-25-04 10:47:00 Test Item Value Reference Range Interpretation Comments Neutrophils # (test code = Neutrophils 8.1 1.5-8.1 #) [facility] CenterHwsiazcTODLZILEJO8376-84-03 10:47:00 Test Item Value Reference Range Interpretation Comments Monocytes (test code = Monocytes) 7.9 2.0-12.0 [facility] CenterBslrymnVMTRRKASSU1406-95-49 10:47:00 Test Item Value Reference Range Interpretation Comments Lymphocytes (test code = Lymphocytes) 13.4 20.0-40.0 [facility] CenterHnhqwbjWEUXRCHQFR6971-30-07 10:47:00 Test Item Value Reference Range Interpretation Comments Hct (test code = Hct) 27.0 42.0-54.0 [facility] CenterMgmtewaZJZPOEVFIP5504-58-48 10:47:00 Test Item Value Reference Range Interpretation Comments MCV (test code = MCV) 78.7 80.0-94.0 [facility] CenterJmkeyywWAXOOWAFWF4609-78-57 10:47:00 Test Item Value Reference Range Interpretation Comments MCHC (test code = MCHC) 32.7 32.0-36.0 [facility] CenterHbuhjetAVQTOLUGWQ5932-49-22 10:47:00 Test Item Value Reference Range Interpretation Comments MCH (test code = MCH) 25.8 pg 27.0-31.0 [facility] CenterTxtlluiHUYHIIFOTK5786-74-73 10:47:00 Test Item Value Reference Range Interpretation Comments MPV (test code = MPV) 8.2 7.4-10.4 [facility] CenterGxokpdeFSKZQLMBYI2550-25-30 10:47:00 Test Item Value Reference Range Interpretation Comments Platelet (test code = Platelet) 475 133-450 [facility] CenterWdiszthOZWIPRMNPL8064-71-76 10:47:00 Test Item Value Reference Range Interpretation Comments RDW (test code = RDW) 17.9 11.5-14.5 [facility] CenterXxwuhigDXTAEKJDFI0133-30-76 10:47:00 Test Item Value Reference Range Interpretation Comments RBC (test code = RBC) 3.42 4.70-6.10 [facility]FvrwqwfQPIIHLSKWJ5659-16-63 10:47:00 Test Item Value Reference Range Interpretation Comments Hgb (test code = Hgb) 8.8 14.0-18.0 [facility]BslxavyXNNMWDHTFK0775-29-87 10:47:00 Test Item Value Reference Range Interpretation Comments WBC (test code = WBC) 10.3 3.7-10.4 [facility] BRCWGLB0016-13-62 10:47:00 Test Item Value Reference Range Interpretation Comments BNP (test code = BNP) 288 [facility]2018-12-28 10:47:00 Test Item Value Reference Range Interpretation Comments Phosphorus (test code = Phosphorus) 3.3 2.5-4.5 [facility]2018-12-28 10:47:00 Test Item Value Reference Range Interpretation Comments Magnesium Lvl (test code = Magnesium 2.2 1.8-2.4 Lvl) [facility]2018-12-28 10:47:00 Test Item Value Reference Range Interpretation Comments Albumin Lvl (test code = Albumin Lvl) 2.3 3.5-5.0 [facility]2018-12-28 10:47:00 Test Item Value Reference Range Interpretation Comments Creatinine Lvl (test code = Creatinine 0.81 0.50-1.40 Lvl) [facility]2018-12-28 10:47:00 Test Item Value Reference Range Interpretation Comments ALT (test code = ALT) 14 See_Comment [Auto mated message] The system which ge nerated this result transmit garrett reference range : <=65. The reference range was not used to interpr et this result as cassie l/abnormal. [facility]2018-12-28 10:47:00 Test Item Value Reference Range Interpretation Comments AST (test code = AST) 9 See_Comment [Auto mated message] The system which ge nerated this result transmit garrett reference range : <=37. The reference range was not used to interpr et this result as cassie l/abnormal. [facility]2018-12-28 10:47:00 Test Item Value Reference Range Interpretation Comments eGFR (test code = eGFR) 97 [facility]2018-12-28 10:47:00 Test Item Value Reference Range Interpretation Comments Sodium Lvl (test code = Sodium Lvl) 143 135-145 [facility]2018-12-28 10:47:00 Test Item Value Reference Range Interpretation Comments Potassium Lvl (test code = Potassium 3.3 3.5-5.1 Lvl) [facility]2018-12-28 10:47:00 Test Item Value Reference Range Interpretation Comments Chloride Lvl (test code = Chloride Lvl) 107 95-109 [facility]2018-12-28 10:47:00 Test Item Value Reference Range Interpretation Comments Total Protein (test code = Total 6.7 6.4-8.4 Protein) [facility]2018-12-28 10:47:00 Test Item Value Reference Range Interpretation Comments Bili Total (test code = Bili Total) 0.7 0.2-1.3 [facility]2018-12-28 10:47:00 Test Item Value Reference Range Interpretation Comments Calcium Lvl (test code = Calcium Lvl) 8.3 8.5-10.5 [facility]2018-12-28 10:47:00 Test Item Value Reference Range Interpretation Comments CO2 (test code = CO2) 29 24-32 [facility]2018-12-28 10:47:00 Test Item Value Reference Range Interpretation Comments BUN (test code = BUN) 14 7-22 [facility]2018-12-28 10:47:00 Test Item Value Reference Range Interpretation Comments Glucose Lvl (test code = Glucose Lvl) 128 70-99 [facility]2018-12-28 10:47:00 Test Item Value Reference Range Interpretation Comments Alk Phos (test code = Alk Phos) 100 39-136 [facility]2018-12-28 10:47:00 Test Item Value Reference Range Interpretation Comments B/C Ratio (test code = B/C Ratio) 17 1 6-25 [facility]2018-12-28 10:47:00 Test Item Value Reference Range Interpretation Comments Globulin (test code = Globulin) 4.4 2.7-4.2 [facility]2018-12-28 10:47:00 Test Item Value Reference Range Interpretation Comments A/G Ratio (test code = A/G Ratio) 0.5 1 0.7-1.6 [facility]2018-12-28 10:47:00 Test Item Value Reference Range Interpretation Comments AGAP (test code = AGAP) 10.3 10.0-20.0 [facility] CenterFydcxpoMAHJJADADD2175-66-54 10:47:00 Test Item Value Reference Range Interpretation Comments Microcyte (test code = 1+ *ABN*(03/01/18 Microcyte) 4:47 AM) [facility] CenterGzxtkzaFXNNEUPLWY3617-65-75 10:47:00 Test Item Value Reference Range Interpretation Comments Lymphocytes # (test code = Lymphocytes 1.4 1.0-5.5 #) [facility] CenterOdobutcKTDTVPEPMW2650-86-48 10:47:00 Test Item Value Reference Range Interpretation Comments Monocytes # (test code 0.8 See_Comment [Aut omated message] The = Monocytes #) system which generated this result tra nsmitted reference range : <=0.8. The reference r ondina was not used to int erpret this result as normal/abnormal . [facility] CenterFpelcksGJBSHFGIOI7138-76-66 10:47:00 Test Item Value Reference Range Interpretation Comments Segs (test code = Segs) 78.3 45.0-75.0 [facility] CenterEfanespIUEUGHQNFD4707-01-90 10:47:00 Test Item Value Reference Range Interpretation Comments Basophils (test code = 0.4 See_Comment [Aut omated message] The Basophils) system which ge nerated this result tra nsmitted reference range : <=1.0. The reference r ondina was not used to int erpret this result as normal/abnormal . [facility] CenterScteqggEMIBPWOBYI7166-89-44 10:47:00 Test Item Value Reference Range Interpretation Comments Neutrophils # (test code = Neutrophils 8.1 1.5-8.1 #) [facility] CenterPlqdinwXVHTAVOYZI8519-50-18 10:47:00 Test Item Value Reference Range Interpretation Comments Monocytes (test code = Monocytes) 7.9 2.0-12.0 [facility] CenterImsmjnqQGQSMYDBPE0364-19-75 10:47:00 Test Item Value Reference Range Interpretation Comments Lymphocytes (test code = Lymphocytes) 13.4 20.0-40.0 [facility] HospitalMysktvsNYYHFEHURB1225-57-10 10:47:00 Test Item Value Reference Range Interpretation Comments Hct (test code = Hct) 27.0 42.0-54.0 [facility] HospitalBdjsuweAOCQBAITBD5012-45-52 10:47:00 Test Item Value Reference Range Interpretation Comments MCV (test code = MCV) 78.7 80.0-94.0 [facility] HospitalIpzdsqwBMRUCTIMGL9986-64-14 10:47:00 Test Item Value Reference Range Interpretation Comments MCHC (test code = MCHC) 32.7 32.0-36.0 [facility] HospitalXkypuqcRGYQIGGFNU3197-40-11 10:47:00 Test Item Value Reference Range Interpretation Comments MCH (test code = MCH) 25.8 pg 27.0-31.0 [facility]JlimqlbKPASZMDDXZ9694-35-38 10:47:00 Test Item Value Reference Range Interpretation Comments MPV (test code = MPV) 8.2 7.4-10.4 [facility] HospitalUckeivqTTIAIJMYEV1883-76-32 10:47:00 Test Item Value Reference Range Interpretation Comments Platelet (test code = Platelet) 475 133450 [facility]SvxyglmBUNVWYEJYO1384-55-68 10:47:00 Test Item Value Reference Range Interpretation Comments RDW (test code = RDW) 17.9 11.5-14.5 [facility] HospitalWawmfhyVZWEDZCOJJ0233-83-09 10:47:00 Test Item Value Reference Range Interpretation Comments RBC (test code = RBC) 3.42 4.70-6.10 [facility] HospitalSjdnkjnGDRMASYVMK5098-31-76 10:47:00 Test Item Value Reference Range Interpretation Comments Hgb (test code = Hgb) 8.8 14.0-18.0 [facility] HospitalUeufklwWAZIRNNGRL9484-93-68 10:47:00 Test Item Value Reference Range Interpretation Comments WBC (test code = WBC) 10.3 3.7-10.4 [facility] HospitalCARDIAC IPLANLH4882-92-67 10:47:00 Test Item Value Reference Range Interpretation Comments BNP (test code = BNP) 288 [facility]annCHE[facility] SZIYR5753-35-00 10:47:00 Test Item Value Reference Range Interpretation Comments Phosphorus (test code = Phosphorus) 3.3 2.5-4.5 [facility]2018-12-28 10:47:00 Test Item Value Reference Range Interpretation Comments Magnesium Lvl (test code = Magnesium 2.2 1.8-2.4 Lvl) [facility]2018-12-28 10:47:00 Test Item Value Reference Range Interpretation Comments Albumin Lvl (test code = Albumin Lvl) 2.3 3.5-5.0 [facility]2018-12-28 10:47:00 Test Item Value Reference Range Interpretation Comments Creatinine Lvl (test code = Creatinine 0.81 0.50-1.40 Lvl) [facility]2018-12-28 10:47:00 Test Item Value Reference Range Interpretation Comments ALT (test code = ALT) 14 <=65 [facility]2018-12-28 10:47:00 Test Item Value Reference Range Interpretation Comments AST (test code = AST) 9 <=37 [facility]2018-12-28 10:47:00 Test Item Value Reference Range Interpretation Comments eGFR (test code = eGFR) 97 [facility]2018-12-28 10:47:00 Test Item Value Reference Range Interpretation Comments Sodium Lvl (test code = Sodium Lvl) 143 135-145 [facility]2018-12-28 10:47:00 Test Item Value Reference Range Interpretation Comments Potassium Lvl (test code = Potassium 3.3 3.5-5.1 Lvl) [facility]2018-12-28 10:47:00 Test Item Value Reference Range Interpretation Comments Chloride Lvl (test code = Chloride Lvl) 107 95-109 [facility]2018-12-28 10:47:00 Test Item Value Reference Range Interpretation Comments Total Protein (test code = Total 6.7 6.4-8.4 Protein) [facility]2018-12-28 10:47:00 Test Item Value Reference Range Interpretation Comments Bili Total (test code = Bili Total) 0.7 0.2-1.3 [facility]2018-12-28 10:47:00 Test Item Value Reference Range Interpretation Comments Calcium Lvl (test code = Calcium Lvl) 8.3 8.5-10.5 [facility]2018-12-28 10:47:00 Test Item Value Reference Range Interpretation Comments CO2 (test code = CO2) 29 24-32 [facility]2018-12-28 10:47:00 Test Item Value Reference Range Interpretation Comments BUN (test code = BUN) 14 7-22 [facility]2018-12-28 10:47:00 Test Item Value Reference Range Interpretation Comments Glucose Lvl (test code = Glucose Lvl) 128 70-99 [facility]2018-12-28 10:47:00 Test Item Value Reference Range Interpretation Comments Alk Phos (test code = Alk Phos) 100 39-136 [facility]2018-12-28 10:47:00 Test Item Value Reference Range Interpretation Comments B/C Ratio (test code = B/C Ratio) 17 1 6-25 [facility]2018-12-28 10:47:00 Test Item Value Reference Range Interpretation Comments Globulin (test code = Globulin) 4.4 2.7-4.2 [facility]2018-12-28 10:47:00 Test Item Value Reference Range Interpretation Comments A/G Ratio (test code = A/G Ratio) 0.5 1 0.7-1.6 [facility]2018-12-28 10:47:00 Test Item Value Reference Range Interpretation Comments AGAP (test code = AGAP) 10.3 10.0-20.0 [facility] CenterQcspbhpYJYWTQXKND4102-37-47 10:47:00 Test Item Value Reference Range Interpretation Comments Microcyte (test code = 1+ *ABN*(03/01/18 Microcyte) 4:47 AM) [facility] CenterUlpztekWMJOYZNQFP1150-38-78 10:47:00 Test Item Value Reference Range Interpretation Comments Lymphocytes # (test code = Lymphocytes 1.4 1.0-5.5 #) [facility] CenterRybabduMTZVJRGLCB0628-82-94 10:47:00 Test Item Value Reference Range Interpretation Comments Monocytes # (test code = Monocytes #) 0.8 <=0.8 [facility] CenterDnvutemYLGCONWOAX1874-23-41 10:47:00 Test Item Value Reference Range Interpretation Comments Segs (test code = Segs) 78.3 45.0-75.0 [facility] CenterReqrwarDHCKZVPMZG0766-34-98 10:47:00 Test Item Value Reference Range Interpretation Comments Basophils (test code = Basophils) 0.4 <=1.0 [facility] CenterUaryzkgLUMIRZVYIT1080-81-94 10:47:00 Test Item Value Reference Range Interpretation Comments Neutrophils # (test code = Neutrophils 8.1 1.5-8.1 #) [facility] CenterYxcruorYUKJIJQXDS5713-89-97 10:47:00 Test Item Value Reference Range Interpretation Comments Monocytes (test code = Monocytes) 7.9 2.0-12.0 [facility] CenterGekagurOEJPYWXASC5336-20-75 10:47:00 Test Item Value Reference Range Interpretation Comments Lymphocytes (test code = Lymphocytes) 13.4 20.0-40.0 [facility] CenterKfcdnrrHWFRYVVQCT6171-64-93 10:47:00 Test Item Value Reference Range Interpretation Comments Hct (test code = Hct) 27.0 42.0-54.0 [facility] CenterCfvpgrmPQBGMMZXWD1717-59-07 10:47:00 Test Item Value Reference Range Interpretation Comments MCV (test code = MCV) 78.7 80.0-94.0 [facility] CenterJzcfaxuJJYKWJATOF0587-60-30 10:47:00 Test Item Value Reference Range Interpretation Comments MCHC (test code = MCHC) 32.7 32.0-36.0 [facility] CenterWytykwwZRAMHXSRHJ6384-00-44 10:47:00 Test Item Value Reference Range Interpretation Comments MCH (test code = MCH) 25.8 pg 27.0-31.0 [facility] CenterUhkaidxWOVJPUEPSX0525-55-43 10:47:00 Test Item Value Reference Range Interpretation Comments MPV (test code = MPV) 8.2 7.4-10.4 [facility] CenterQfiflwoVZYHQARPPU4660-71-23 10:47:00 Test Item Value Reference Range Interpretation Comments Platelet (test code = Platelet) 475 133450 [facility] CenterHbxmuioJVFOMRBJXL9471-89-64 10:47:00 Test Item Value Reference Range Interpretation Comments RDW (test code = RDW) 17.9 11.5-14.5 [facility] CenterZwakgnoTOEBMATCMV8704-58-43 10:47:00 Test Item Value Reference Range Interpretation Comments RBC (test code = RBC) 3.42 4.70-6.10 [facility] CenterTtjzrlgCHWKSHUWHF6125-86-47 10:47:00 Test Item Value Reference Range Interpretation Comments Hgb (test code = Hgb) 8.8 14.0-18.0 [facility] CenterJvvqvzaTVQUJZLDTF8785-69-08 10:47:00 Test Item Value Reference Range Interpretation Comments WBC (test code = WBC) 10.3 3.7-10.4 [facility] AJXILLW2546-70-46 16:12:00 Test Item Value Reference Range Interpretation Comments Troponin-I (test code no gt See_Comment [Auto mated message] The = Troponin-I) system which g enerated this result transmit garrett reference range : <=0.40. The reference r ondina was not used to interpr et this result as cassie l/abnormal. [facility]Share[facility] [id number] 16:12:00 Test Item Value Reference Range Interpretation Comments Magnesium Lvl (test code = Magnesium 2.1 1.8-2.4 Lvl) [facility]2018-12-27 16:12:00 Test Item Value Reference Range Interpretation Comments Alk Phos (test code = Alk Phos) 132 39-136 [facility]2018-12-27 16:12:00 Test Item Value Reference Range Interpretation Comments Potassium Lvl (test code = Potassium 3.8 3.5-5.1 Lvl) [facility] [id number] 16:12:00 Test Item Value Reference Range Interpretation Comments Chloride Lvl (test code = Chloride Lvl) 108 95-109 [facility]2018-12-27 16:12:00 Test Item Value Reference Range Interpretation Comments Sodium Lvl (test code = Sodium Lvl) 141 135-145 [facility]2018-12-27 16:12:00 Test Item Value Reference Range Interpretation Comments eGFR (test code = eGFR) 96 [facility] [id number] 16:12:00 Test Item Value Reference Range Interpretation Comments B/C Ratio (test code = B/C Ratio) 7 1 6-25 [facility] [id number] 16:12:00 Test Item Value Reference Range Interpretation Comments AST (test code = AST) 15 See_Comment [Auto mated message] The system which ge nerated this result transmit garrett reference range : <=37. The reference range was not used to interpr et this result as cassie l/abnormal. [facility] [id number] 16:12:00 Test Item Value Reference Range Interpretation Comments Creatinine Lvl (test code = Creatinine 0.83 0.50-1.40 Lvl) [facility]2018-12-27 16:12:00 Test Item Value Reference Range Interpretation Comments ALT (test code = ALT) 20 See_Comment [Auto mated message] The system which ge nerated this result transmit garrett reference range : <=65. The reference range was not used to interpr et this result as cassie l/abnormal. [facility]2018-12-27 16:12:00 Test Item Value Reference Range Interpretation Comments AGAP (test code = AGAP) 13.8 10.0-20.0 [place] [id number] 16:12:00 Test Item Value Reference Range Interpretation Comments Albumin Lvl (test code = Albumin Lvl) 2.5 3.5-5.0 [facility]2018-12-27 16:12:00 Test Item Value Reference Range Interpretation Comments Glucose Lvl (test code = Glucose Lvl) 153 70-99 [facility]2018-12-27 16:12:00 Test Item Value Reference Range Interpretation Comments BUN (test code = BUN) 6 7-22 [facility]2018-12-27 16:12:00 Test Item Value Reference Range Interpretation Comments CO2 (test code = CO2) 23 24-32 [facility]2018-12-27 16:12:00 Test Item Value Reference Range Interpretation Comments Calcium Lvl (test code = Calcium Lvl) 8.8 8.5-10.5 [facility]2018-12-27 16:12:00 Test Item Value Reference Range Interpretation Comments Bili Total (test code = Bili Total) 0.2 0.2-1.3 [facility]2018-12-27 16:12:00 Test Item Value Reference Range Interpretation Comments Total Protein (test code = Total 7.5 6.4-8.4 Protein) [facility]2018-12-27 16:12:00 Test Item Value Reference Range Interpretation Comments Globulin (test code = Globulin) 5.0 2.7-4.2 [place] [id number] 16:12:00 Test Item Value Reference Range Interpretation Comments A/G Ratio (test code = A/G Ratio) 0.5 1 0.7-1.6 [place] [id number] 16:12:00 Test Item Value Reference Range Interpretation Comments Phosphorus (test code = Phosphorus) 2.9 2.5-4.5 [facility] [id number] 16:12:00 Test Item Value Reference Range Interpretation Comments Troponin-I (test code no gt See_Comment [Auto mated message] The = Troponin-I) system which g enerated this result transmit garrett reference range : <=0.40. The reference r ondina was not used to interpr et this result as cassie l/abnormal. [facility] [id number] 16:12:00 Test Item Value Reference Range Interpretation Comments Magnesium Lvl (test code = Magnesium 2.1 1.8-2.4 Lvl) [facility]2018-12-27 16:12:00 Test Item Value Reference Range Interpretation Comments Alk Phos (test code = Alk Phos) 132 39-136 [facility]2018-12-27 16:12:00 Test Item Value Reference Range Interpretation Comments Potassium Lvl (test code = Potassium 3.8 3.5-5.1 Lvl) [facility] [id number] 16:12:00 Test Item Value Reference Range Interpretation Comments Chloride Lvl (test code = Chloride Lvl) 108 95-109 [facility] [id number] 16:12:00 Test Item Value Reference Range Interpretation Comments Sodium Lvl (test code = Sodium Lvl) 141 135-145 [facility]2018-12-27 16:12:00 Test Item Value Reference Range Interpretation Comments eGFR (test code = eGFR) 96 [facility]2018-12-27 16:12:00 Test Item Value Reference Range Interpretation Comments B/C Ratio (test code = B/C Ratio) 7 1 6-25 [facility] [id number] 16:12:00 Test Item Value Reference Range Interpretation Comments AST (test code = AST) 15 See_Comment [Auto mated message] The system which ge nerated this result transmit garrett reference range : <=37. The reference range was not used to interpr et this result as cassie l/abnormal. [facility] [id number] 16:12:00 Test Item Value Reference Range Interpretation Comments Creatinine Lvl (test code = Creatinine 0.83 0.50-1.40 Lvl) [facility]2018-12-27 16:12:00 Test Item Value Reference Range Interpretation Comments ALT (test code = ALT) 20 See_Comment [Auto mated message] The system which ge nerated this result transmit garrett reference range : <=65. The reference range was not used to interpr et this result as cassie l/abnormal. [facility]2018-12-27 16:12:00 Test Item Value Reference Range Interpretation Comments AGAP (test code = AGAP) 13.8 10.0-20.0 [facility]2018-12-27 16:12:00 Test Item Value Reference Range Interpretation Comments Albumin Lvl (test code = Albumin Lvl) 2.5 3.5-5.0 [facility]2018-12-27 16:12:00 Test Item Value Reference Range Interpretation Comments Glucose Lvl (test code = Glucose Lvl) 153 70-99 [facility]2018-12-27 16:12:00 Test Item Value Reference Range Interpretation Comments BUN (test code = BUN) 6 7-22 [facility]2018-12-27 16:12:00 Test Item Value Reference Range Interpretation Comments CO2 (test code = CO2) 23 24-32 [facility]2018-12-27 16:12:00 Test Item Value Reference Range Interpretation Comments Calcium Lvl (test code = Calcium Lvl) 8.8 8.5-10.5 [facility]2018-12-27 16:12:00 Test Item Value Reference Range Interpretation Comments Bili Total (test code = Bili Total) 0.2 0.2-1.3 [facility]2018-12-27 16:12:00 Test Item Value Reference Range Interpretation Comments Total Protein (test code = Total 7.5 6.4-8.4 Protein) [facility]2018-12-27 16:12:00 Test Item Value Reference Range Interpretation Comments Globulin (test code = Globulin) 5.0 2.7-4.2 [facility]2018-12-27 16:12:00 Test Item Value Reference Range Interpretation Comments A/G Ratio (test code = A/G Ratio) 0.5 1 0.7-1.6 [place] [id number] 16:12:00 Test Item Value Reference Range Interpretation Comments Phosphorus (test code = Phosphorus) 2.9 2.5-4.5 [facility] [id number] 16:12:00 Test Item Value Reference Range Interpretation Comments Troponin-I (test code no gt See_Comment [Auto mated message] The = Troponin-I) system which g enerated this result transmit garrett reference range : <=0.40. The reference r ondina was not used to interpr et this result as cassie l/abnormal. [facility] [id number] 16:12:00 Test Item Value Reference Range Interpretation Comments Magnesium Lvl (test code = Magnesium 2.1 1.8-2.4 Lvl) [facility]2018-12-27 16:12:00 Test Item Value Reference Range Interpretation Comments Alk Phos (test code = Alk Phos) 132 39-136 [facility]2018-12-27 16:12:00 Test Item Value Reference Range Interpretation Comments Potassium Lvl (test code = Potassium 3.8 3.5-5.1 Lvl) [facility]2018-12-27 16:12:00 Test Item Value Reference Range Interpretation Comments Chloride Lvl (test code = Chloride Lvl) 108 95-109 [facility]2018-12-27 16:12:00 Test Item Value Reference Range Interpretation Comments Sodium Lvl (test code = Sodium Lvl) 141 135-145 [facility]2018-12-27 16:12:00 Test Item Value Reference Range Interpretation Comments eGFR (test code = eGFR) 96 [facility]2018-12-27 16:12:00 Test Item Value Reference Range Interpretation Comments B/C Ratio (test code = B/C Ratio) 7 1 6-25 [facility]2018-12-27 16:12:00 Test Item Value Reference Range Interpretation Comments AST (test code = AST) 15 See_Comment [Auto mated message] The system which ge nerated this result transmit garrett reference range : <=37. The reference range was not used to interpr et this result as cassie l/abnormal. [facility] [id number] 16:12:00 Test Item Value Reference Range Interpretation Comments Creatinine Lvl (test code = Creatinine 0.83 0.50-1.40 Lvl) [facility]2018-12-27 16:12:00 Test Item Value Reference Range Interpretation Comments ALT (test code = ALT) 20 See_Comment [Auto mated message] The system which ge nerated this result transmit garrett reference range : <=65. The reference range was not used to interpr et this result as cassie l/abnormal. [facility]2018-12-27 16:12:00 Test Item Value Reference Range Interpretation Comments AGAP (test code = AGAP) 13.8 10.0-20.0 [place] [id number] 16:12:00 Test Item Value Reference Range Interpretation Comments Albumin Lvl (test code = Albumin Lvl) 2.5 3.5-5.0 [facility]2018-12-27 16:12:00 Test Item Value Reference Range Interpretation Comments Glucose Lvl (test code = Glucose Lvl) 153 70-99 [facility]2018-12-27 16:12:00 Test Item Value Reference Range Interpretation Comments BUN (test code = BUN) 6 7-22 [facility]2018-12-27 16:12:00 Test Item Value Reference Range Interpretation Comments CO2 (test code = CO2) 23 24-32 [facility]2018-12-27 16:12:00 Test Item Value Reference Range Interpretation Comments Calcium Lvl (test code = Calcium Lvl) 8.8 8.5-10.5 [facility]2018-12-27 16:12:00 Test Item Value Reference Range Interpretation Comments Bili Total (test code = Bili Total) 0.2 0.2-1.3 [facility]2018-12-27 16:12:00 Test Item Value Reference Range Interpretation Comments Total Protein (test code = Total 7.5 6.4-8.4 Protein) [facility]2018-12-27 16:12:00 Test Item Value Reference Range Interpretation Comments Globulin (test code = Globulin) 5.0 2.7-4.2 [facility]2018-12-27 16:12:00 Test Item Value Reference Range Interpretation Comments A/G Ratio (test code = A/G Ratio) 0.5 1 0.7-1.6 [place] [id number] 16:12:00 Test Item Value Reference Range Interpretation Comments Phosphorus (test code = Phosphorus) 2.9 2.5-4.5 [facility] [id number] 16:12:00 Test Item Value Reference Range Interpretation Comments Troponin-I (test code no gt See_Comment [Auto mated message] The = Troponin-I) system which g enerated this result transmit garrett reference range : <=0.40. The reference r ondina was not used to interpr et this result as cassie l/abnormal. [facility] [id number] 16:12:00 Test Item Value Reference Range Interpretation Comments Magnesium Lvl (test code = Magnesium 2.1 1.8-2.4 Lvl) [facility] [id number] 16:12:00 Test Item Value Reference Range Interpretation Comments Alk Phos (test code = Alk Phos) 132 39-136 [facility] [id number] 16:12:00 Test Item Value Reference Range Interpretation Comments Potassium Lvl (test code = Potassium 3.8 3.5-5.1 Lvl) [facility] [id number] 16:12:00 Test Item Value Reference Range Interpretation Comments Chloride Lvl (test code = Chloride Lvl) 108 95-109 [facility] [id number] 16:12:00 Test Item Value Reference Range Interpretation Comments Sodium Lvl (test code = Sodium Lvl) 141 135-145 [facility] [id number] 16:12:00 Test Item Value Reference Range Interpretation Comments eGFR (test code = eGFR) 96 [facility] [id number] 16:12:00 Test Item Value Reference Range Interpretation Comments B/C Ratio (test code = B/C Ratio) 7 1 6-25 [facility] [id number] 16:12:00 Test Item Value Reference Range Interpretation Comments AST (test code = AST) 15 See_Comment [Auto mated message] The system which ge nerated this result transmit garrett reference range : <=37. The reference range was not used to interpr et this result as cassie l/abnormal. [facility] [id number] 16:12:00 Test Item Value Reference Range Interpretation Comments Creatinine Lvl (test code = Creatinine 0.83 0.50-1.40 Lvl) [facility]2018-12-27 16:12:00 Test Item Value Reference Range Interpretation Comments ALT (test code = ALT) 20 See_Comment [Auto mated message] The system which ge nerated this result transmit garrett reference range : <=65. The reference range was not used to interpr et this result as cassie l/abnormal. [facility]2018-12-27 16:12:00 Test Item Value Reference Range Interpretation Comments AGAP (test code = AGAP) 13.8 10.0-20.0 [facility]2018-12-27 16:12:00 Test Item Value Reference Range Interpretation Comments Albumin Lvl (test code = Albumin Lvl) 2.5 3.5-5.0 [facility]2018-12-27 16:12:00 Test Item Value Reference Range Interpretation Comments Glucose Lvl (test code = Glucose Lvl) 153 70-99 [facility]2018-12-27 16:12:00 Test Item Value Reference Range Interpretation Comments BUN (test code = BUN) 6 7-22 [facility]2018-12-27 16:12:00 Test Item Value Reference Range Interpretation Comments CO2 (test code = CO2) 23 24-32 [facility]2018-12-27 16:12:00 Test Item Value Reference Range Interpretation Comments Calcium Lvl (test code = Calcium Lvl) 8.8 8.5-10.5 [facility]2018-12-27 16:12:00 Test Item Value Reference Range Interpretation Comments Bili Total (test code = Bili Total) 0.2 0.2-1.3 [facility]2018-12-27 16:12:00 Test Item Value Reference Range Interpretation Comments Total Protein (test code = Total 7.5 6.4-8.4 Protein) [facility]2018-12-27 16:12:00 Test Item Value Reference Range Interpretation Comments Globulin (test code = Globulin) 5.0 2.7-4.2 [facility]2018-12-27 16:12:00 Test Item Value Reference Range Interpretation Comments A/G Ratio (test code = A/G Ratio) 0.5 1 0.7-1.6 [facility]2018-12-27 16:12:00 Test Item Value Reference Range Interpretation Comments Phosphorus (test code = Phosphorus) 2.9 2.5-4.5 [facility] [id number] 16:12:00 Test Item Value Reference Range Interpretation Comments Troponin-I (test code = Troponin-I) no gt <=0.40 [facility]2018-12-27 16:12:00 Test Item Value Reference Range Interpretation Comments Magnesium Lvl (test code = Magnesium 2.1 1.8-2.4 Lvl) [facility]2018-12-27 16:12:00 Test Item Value Reference Range Interpretation Comments Alk Phos (test code = Alk Phos) 132 39-136 [facility]2018-12-27 16:12:00 Test Item Value Reference Range Interpretation Comments Potassium Lvl (test code = Potassium 3.8 3.5-5.1 Lvl) [facility]2018-12-27 16:12:00 Test Item Value Reference Range Interpretation Comments Chloride Lvl (test code = Chloride Lvl) 108 95-109 [facility]2018-12-27 16:12:00 Test Item Value Reference Range Interpretation Comments Sodium Lvl (test code = Sodium Lvl) 141 135-145 [facility]2018-12-27 16:12:00 Test Item Value Reference Range Interpretation Comments eGFR (test code = eGFR) 96 [facility]2018-12-27 16:12:00 Test Item Value Reference Range Interpretation Comments B/C Ratio (test code = B/C Ratio) 7 1 6-25 [facility]2018-12-27 16:12:00 Test Item Value Reference Range Interpretation Comments AST (test code = AST) 15 <=37 [facility]2018-12-27 16:12:00 Test Item Value Reference Range Interpretation Comments Creatinine Lvl (test code = Creatinine 0.83 0.50-1.40 Lvl) [facility]2018-12-27 16:12:00 Test Item Value Reference Range Interpretation Comments ALT (test code = ALT) 20 <=65 [facility]2018-12-27 16:12:00 Test Item Value Reference Range Interpretation Comments AGAP (test code = AGAP) 13.8 10.0-20.0 [facility]2018-12-27 16:12:00 Test Item Value Reference Range Interpretation Comments Albumin Lvl (test code = Albumin Lvl) 2.5 3.5-5.0 [facility]2018-12-27 16:12:00 Test Item Value Reference Range Interpretation Comments Glucose Lvl (test code = Glucose Lvl) 153 70-99 [facility]2018-12-27 16:12:00 Test Item Value Reference Range Interpretation Comments BUN (test code = BUN) 6 7-22 [facility]2018-12-27 16:12:00 Test Item Value Reference Range Interpretation Comments CO2 (test code = CO2) 23 24-32 [facility]2018-12-27 16:12:00 Test Item Value Reference Range Interpretation Comments Calcium Lvl (test code = Calcium Lvl) 8.8 8.5-10.5 [facility]2018-12-27 16:12:00 Test Item Value Reference Range Interpretation Comments Bili Total (test code = Bili Total) 0.2 0.2-1.3 [facility]2018-12-27 16:12:00 Test Item Value Reference Range Interpretation Comments Total Protein (test code = Total 7.5 6.4-8.4 Protein) [facility]2018-12-27 16:12:00 Test Item Value Reference Range Interpretation Comments Globulin (test code = Globulin) 5.0 2.7-4.2 [facility]2018-12-27 16:12:00 Test Item Value Reference Range Interpretation Comments A/G Ratio (test code = A/G Ratio) 0.5 1 0.7-1.6 [facility] [id number] 16:12:00 Test Item Value Reference Range Interpretation Comments Phosphorus (test code = Phosphorus) 2.9 2.5-4.5 [facility] [id number] 04:37:00 Test Item Value Reference Range Interpretation Comments Troponin-I (test code no gt See_Comment [Auto mated message] The = Troponin-I) system which g enerated this result transmit garrett reference range : <=0.40. The reference r ondina was not used to interpr et this result as cassie l/abnormal. [facility] [id number] 04:37:00 Test Item Value Reference Range Interpretation Comments proBNP (test code = 2678 See_Comment [Automa garrett message] The proBNP) system which ge nerated this result tra nsmitted reference range : <=125. The reference r ondina was not used to int erpret this result as cassie l/abnormal. [id number] 04:37:00 Test Item Value Reference Range Interpretation Comments CO2 (test code = CO2) 25 24-32 [facility][id number] 04:37:00 Test Item Value Reference Range Interpretation Comments Calcium Lvl (test code = Calcium Lvl) 8.1 8.5-10.5 [id number] 04:37:00 Test Item Value Reference Range Interpretation Comments Potassium Lvl (test code = Potassium 3.6 3.5-5.1 Lvl) [id number] 04:37:00 Test Item Value Reference Range Interpretation Comments Chloride Lvl (test code = Chloride Lvl) 108 95-109 [id number] 04:37:00 Test Item Value Reference Range Interpretation Comments Sodium Lvl (test code = Sodium Lvl) 142 135-145 [facility]IcztieaQHHVKXJQXHGW2445-12-78 04:37:00 Test Item Value Reference Range Interpretation Comments Creatinine Lvl (test code = Creatinine 0.80 0.50-1.40 Lvl) [facility] MichiganLshecqdABPPUPNARFUZ5597-53-91 04:37:00 Test Item Value Reference Range Interpretation Comments BUN (test code = BUN) 8 7-22 [facility][id number] 04:37:00 Test Item Value Reference Range Interpretation Comments Glucose Lvl (test code = Glucose Lvl) 88 70-99 [id number] 04:37:00 Test Item Value Reference Range Interpretation Comments eGFR (test code = eGFR) 97 [facility]AjfibkbZWHHNUHKXGKL3921-22-73 04:37:00 Test Item Value Reference Range Interpretation Comments AGAP (test code = AGAP) 12.6 10.0-20.0 [facility] HospitalZvebjttGVMXSVBAXD4649-43-79 04:37:00 Test Item Value Reference Range Interpretation Comments WBC (test code = WBC) 7.8 3.7-10.4 [facility] [id number] 04:37:00 Test Item Value Reference Range Interpretation Comments RBC (test code = RBC) 3.53 4.70-6.10 [facility] CenterDlambzgKZNETNBVIF2619-04-32 04:37:00 Test Item Value Reference Range Interpretation Comments Hgb (test code = Hgb) 9.0 14.0-18.0 [facility] CenterWenpiyyRXAKBWSPYV7020-41-96 04:37:00 Test Item Value Reference Range Interpretation Comments MCH (test code = MCH) 25.4 pg 27.0-31.0 [facility] CenterRaqfyvnZJORZUVAXN5288-97-75 04:37:00 Test Item Value Reference Range Interpretation Comments Hct (test code = Hct) 27.5 42.0-54.0 [facility] CenterIsswwfjFFLPUNSFJD0966-66-59 04:37:00 Test Item Value Reference Range Interpretation Comments MCV (test code = MCV) 78.1 80.0-94.0 [facility] CenterKyjlkjuCPOCFBPTYP1700-76-60 04:37:00 Test Item Value Reference Range Interpretation Comments Platelet (test code = Platelet) 400 133-450 [facility] C[id number] 04:37:00 Test Item Value Reference Range Interpretation Comments MCHC (test code = MCHC) 32.5 32.0-36.0 [facility] CenterJhbmrgqEEOXFWMKDC6589-98-48 04:37:00 Test Item Value Reference Range Interpretation Comments MPV (test code = MPV) 8.2 7.4-10.4 [facility] [id number] 04:37:00 Test Item Value Reference Range Interpretation Comments RDW (test code = RDW) 17.8 11.5-14.5 [facility] CenterRkfahfiEOCKODAXSF7707-42-69 04:37:00 Test Item Value Reference Range Interpretation Comments Microcyte (test code = 1+ *ABN*(02/27/18 Microcyte) 10:37 PM) [facility] CenterOykqgudUIFQIWXLUL3124-53-92 04:37:00 Test Item Value Reference Range Interpretation Comments Eosinophils (test code = 4.0 See_Comment [A utomated message] The Eosinophils) system which ge nerated this result tra nsmitted reference range : <=4.0. The reference r ondina was not used to int erpret this result as normal/abnormal . [facility] CenterIjxorwpNEGPXJXRCH2695-67-07 04:37:00 Test Item Value Reference Range Interpretation Comments Neutrophils # (test code = Neutrophils 4.8 1.5-8.1 #) [facility] CenterWsoeuoxZXWXDXQFXY5364-93-28 04:37:00 Test Item Value Reference Range Interpretation Comments Basophils (test code = 1.2 See_Comment [Aut omated message] The Basophils) system which ge nerated this result tra nsmitted reference range : <=1.0. The reference r ondina was not used to int erpret this result as normal/abnormal . [facility] CenterFfvwoxkQMREVNHUHN7635-02-45 04:37:00 Test Item Value Reference Range Interpretation Comments Lymphocytes # (test code = Lymphocytes 1.8 1.0-5.5 #) [facility] CenterNuffkltJVAEUXEXTN3766-62-79 04:37:00 Test Item Value Reference Range Interpretation Comments Monocytes # (test code 0.7 See_Comment [Aut omated message] The = Monocytes #) system which generated this result tra nsmitted reference range : <=0.8. The reference r ondina was not used to int erpret this result as normal/abnormal . [facility] CenterFgybamoFFHRHRNREI6632-68-11 04:37:00 Test Item Value Reference Range Interpretation Comments Basophils # (test code 0.1 See_Comment [Aut omated message] The = Basophils #) system which generated this result tra nsmitted reference range : <=0.2. The reference r ondina was not used to int erpret this result as normal/abnormal . [facility] CenterUktxzjvQQKUJBBOIX3226-84-89 04:37:00 Test Item Value Reference Range Interpretation Comments Eosinophils # (test code 0.3 See_Comment [A utomated message] The = Eosinophils #) system whic h generated this result tra nsmitted reference range : <=0.5. The reference r ondina was not used to int erpret this result as normal/abnormal . [facility] CenterEijpbzvTCQQTIMKZA6030-11-96 04:37:00 Test Item Value Reference Range Interpretation Comments Lymphocytes (test code = Lymphocytes) 23.7 20.0-40.0 [facility] CenterCiybhomTCYBUXUPFI4988-47-61 04:37:00 Test Item Value Reference Range Interpretation Comments Monocytes (test code = Monocytes) 8.8 2.0-12.0 [facility] HospitalPdsguewPREKXZNJLU7603-52-48 04:37:00 Test Item Value Reference Range Interpretation Comments Segs (test code = Segs) 62.3 45.0-75.0 [facility] AND [id number] 04:37:00 Test Item Value Reference Range Interpretation Comments UA Gran Cast (test code = UA Gran 6-10 /LPF Cast) [facility] AND [id number] 04:37:00 Test Item Value Reference Range Interpretation Comments UA Color (test code = Yellow *NA*(02/27/18 UA Color) 10:37 PM) [facility] AND [id number] 04:37:00 Test Item Value Reference Range Interpretation Comments UA Turbidity (test code Moderate = UA Turbidity) *ABN*(02/27/18 10:37 PM) [facility] AND [id number] 04:37:00 Test Item Value Reference Range Interpretation Comments UA Amorph Atiya (test code = Occasional /HPF UA Amorph Atiya) [facility] AND [id number] 04:37:00 Test Item Value Reference Range Interpretation Comments UA Bacteria (test code = UA Occasional /HPF Bacteria) [facility] AND [id number] 04:37:00 Test Item Value Reference Range Interpretation Comments UA Mucus (test code = UA Mucus) Few /LPF [facility] AND [id number] 04:37:00 Test Item Value Reference Range Interpretation Comments UA RBC (test code = 1 See_Comment [Automa garrett message] The UA RBC) system which ge nerated this result transmit garrett reference range : <=2. The reference range was not used to interpr et this result as cassie l/abnormal. [facility] AND [id number] 04:37:00 Test Item Value Reference Range Interpretation Comments UA Leuk Est (test Negative (02/27/18 10:37 code = UA Leuk Est) PM) [facility] AND [id number] 04:37:00 Test Item Value Reference Range Interpretation Comments UA Nitrite (test code Negative (02/27/18 = UA Nitrite) 10:37 PM) [facility] AND [id number] 04:37:00 Test Item Value Reference Range Interpretation Comments UA WBC (test code = 1 See_Comment [Automa garrett message] The UA WBC) system which ge nerated this result transmit garrett reference range : <=5. The reference range was not used to interpr et this result as cassie l/abnormal. [facility]ann[facility] AND [id number] 04:37:00 Test Item Value Reference Range Interpretation Comments UA Sq Epi (test code = UA Sq Occasional /LPF Epi) [facility]annHU[facility] AND [id number] 04:37:00 Test Item Value Reference Range Interpretation Comments UA Protein (test code Negative (02/27/18 = UA Protein) 10:37 PM) [facility] [id number] 04:37:00 Test Item Value Reference Range Interpretation Comments UA Spec Grav (test code = UA Spec 1.009 1 Grav) [facility]ann[facility] AND [id number] 04:37:00 Test Item Value Reference Range Interpretation Comments UA pH (test code = UA pH) 6.0 1 5.0-8.0 [facility]annHU[facility] AND [id number] 04:37:00 Test Item Value Reference Range Interpretation Comments UA Ketones (test code Negative *NA*(02/27/18 = UA Ketones) 10:37 PM) [facility]annHU[facility] AND [id number] 04:37:00 Test Item Value Reference Range Interpretation Comments UA Urobilinogen (test code = UA <=1.0 mg/dL 0.1-1.0 Urobilinogen) [facility]annHU[facility] AND [id number] 04:37:00 Test Item Value Reference Range Interpretation Comments UA Blood (test code = Negative (02/27/18 10:37 UA Blood) PM) [facility]annHU[facility] AND [id number] 04:37:00 Test Item Value Reference Range Interpretation Comments UA Glucose (test code Negative *NA*(02/27/18 = UA Glucose) 10:37 PM) [facility]annHU[facility] AND [id number] 04:37:00 Test Item Value Reference Range Interpretation Comments UA Bili (test code = Negative *NA*(02/27/18 UA Bili) 10:37 PM) [facility] HospitalannVIRAL - [id number] 04:37:00 Test Item Value Reference Range Interpretation Comments Influ A (test code = Negative (02/27/18 10:37 Influ A) PM) [facility] HospitalannVIRAL - [id number] 04:37:00 Test Item Value Reference Range Interpretation Comments Influ B (test code = Negative (02/27/18 10:37 Influ B) PM) [facility] HospitalannCARDIAC [id number] 04:37:00 Test Item Value Reference Range Interpretation Comments Troponin-I (test code no gt See_Comment [Auto mated message] The = Troponin-I) system which g enerated this result transmit garrett reference range : <=0.40. The reference r ondina was not used to interpr et this result as cassie l/abnormal. [facility] HospitalannCARDIAC [id number] 04:37:00 Test Item Value Reference Range Interpretation Comments proBNP (test code = 2678 See_Comment [Automa garrett message] The proBNP) system which ge nerated this result tra nsmitted reference range : <=125. The reference r ondina was not used to int erpret this result as cassie l/abnormal. [facility] YtccqeqAXMHSUJSUCHX8069-79-41 04:37:00 Test Item Value Reference Range Interpretation Comments CO2 (test code = CO2) 25 24-32 [facility] HospitalBlgsfqvWAYJSVTEJBMG9850-66-15 04:37:00 Test Item Value Reference Range Interpretation Comments Calcium Lvl (test code = Calcium Lvl) 8.1 8.5-10.5 [facility] HospitalEiatwveNCABAXHUEFSS3509-32-56 04:37:00 Test Item Value Reference Range Interpretation Comments Potassium Lvl (test code = Potassium 3.6 3.5-5.1 Lvl) [facility] HospitalHoigmrmYOWGNEHLCPVP9859-28-95 04:37:00 Test Item Value Reference Range Interpretation Comments Chloride Lvl (test code = Chloride Lvl) 108 95-109 [facility] HospitalFzrqtncSJHKQKBMSKJA3606-48-05 04:37:00 Test Item Value Reference Range Interpretation Comments Sodium Lvl (test code = Sodium Lvl) 142 135-145 [facility] HospitalRbaphsePLXLWBVCRREN2599-47-50 04:37:00 Test Item Value Reference Range Interpretation Comments Creatinine Lvl (test code = Creatinine 0.80 0.50-1.40 Lvl) [facility] HospitalHmwrewbPSNMNLYHOFKF3674-19-04 04:37:00 Test Item Value Reference Range Interpretation Comments BUN (test code = BUN) 8 7-22 [facility]GijusjqDFMVHYFVMXPZ7085-89-83 04:37:00 Test Item Value Reference Range Interpretation Comments Glucose Lvl (test code = Glucose Lvl) 88 70-99 [facility]KtjhgznRRJGYOKSZNLY0450-23-31 04:37:00 Test Item Value Reference Range Interpretation Comments eGFR (test code = eGFR) 97 [facility] MichiganBlosheoPVIPIRRRLUHZ7909-95-59 04:37:00 Test Item Value Reference Range Interpretation Comments AGAP (test code = AGAP) 12.6 10.0-20.0 [facility] CenterMcdkuoeVASSKINKOI6561-27-26 04:37:00 Test Item Value Reference Range Interpretation Comments WBC (test code = WBC) 7.8 3.7-10.4 [facility] CenterCgzkrnkZDUWWAJAUT6926-21-60 04:37:00 Test Item Value Reference Range Interpretation Comments RBC (test code = RBC) 3.53 4.70-6.10 [facility] CenterFeoupgfPJQVKUZOOR9886-06-49 04:37:00 Test Item Value Reference Range Interpretation Comments Hgb (test code = Hgb) 9.0 14.0-18.0 [facility] CenterNougzqyYFCETYHFML1805-10-83 04:37:00 Test Item Value Reference Range Interpretation Comments MCH (test code = MCH) 25.4 pg 27.0-31.0 [facility] CenterAebdcmtRWBCAEEWOX4650-13-32 04:37:00 Test Item Value Reference Range Interpretation Comments Hct (test code = Hct) 27.5 42.0-54.0 [facility] CenterJvnowhgIURFXWRTZF1199-10-89 04:37:00 Test Item Value Reference Range Interpretation Comments MCV (test code = MCV) 78.1 80.0-94.0 [facility] CenterQyvczpcMFZCIMUYOX0632-35-53 04:37:00 Test Item Value Reference Range Interpretation Comments Platelet (test code = Platelet) 400 133-450 [facility] CenterBcfsycqBZMNHQZBAD3270-30-62 04:37:00 Test Item Value Reference Range Interpretation Comments MCHC (test code = MCHC) 32.5 32.0-36.0 [facility] CenterHylpeddUXGOQFKLSR8749-98-79 04:37:00 Test Item Value Reference Range Interpretation Comments MPV (test code = MPV) 8.2 7.4-10.4 [facility] CenterXjdlbtqNUSXPVRKKJ7042-87-04 04:37:00 Test Item Value Reference Range Interpretation Comments RDW (test code = RDW) 17.8 11.5-14.5 [facility] CenterKrqaamzERGANZSDTS6929-53-52 04:37:00 Test Item Value Reference Range Interpretation Comments Microcyte (test code = 1+ *ABN*(02/27/18 Microcyte) 10:37 PM) [facility] CenterRtugjhjBIAYEAACDE0577-54-16 04:37:00 Test Item Value Reference Range Interpretation Comments Eosinophils (test code = 4.0 See_Comment [A utomated message] The Eosinophils) system which ge nerated this result tra nsmitted reference range : <=4.0. The reference r ondina was not used to int erpret this result as normal/abnormal . [facility] CenterUxltvlkOGDAGSZJNQ8632-43-54 04:37:00 Test Item Value Reference Range Interpretation Comments Neutrophils # (test code = Neutrophils 4.8 1.5-8.1 #) [facility] CenterDzgbomnEACTQWYKWA2865-04-38 04:37:00 Test Item Value Reference Range Interpretation Comments Basophils (test code = 1.2 See_Comment [Aut omated message] The Basophils) system which ge nerated this result tra nsmitted reference range : <=1.0. The reference r ondina was not used to int erpret this result as normal/abnormal . [facility] CenterWsaaprtIJDZRVBYMW6521-46-67 04:37:00 Test Item Value Reference Range Interpretation Comments Lymphocytes # (test code = Lymphocytes 1.8 1.0-5.5 #) [facility] CenterCkkmtopUHWYQKJIAP7446-19-24 04:37:00 Test Item Value Reference Range Interpretation Comments Monocytes # (test code 0.7 See_Comment [Aut omated message] The = Monocytes #) system which generated this result tra nsmitted reference range : <=0.8. The reference r ondina was not used to int erpret this result as normal/abnormal . [facility] CenterCntsqkeYXFFSNSJAZ3300-72-68 04:37:00 Test Item Value Reference Range Interpretation Comments Basophils # (test code 0.1 See_Comment [Aut omated message] The = Basophils #) system which generated this result tra nsmitted reference range : <=0.2. The reference r ondina was not used to int erpret this result as normal/abnormal . [facility] CenterKikbcprEVEWMPICQF5441-41-03 04:37:00 Test Item Value Reference Range Interpretation Comments Eosinophils # (test code 0.3 See_Comment [A utomated message] The = Eosinophils #) system whic h generated this result tra nsmitted reference range : <=0.5. The reference r ondina was not used to int erpret this result as normal/abnormal . [facility] CenterLvdtaivRKRBWAJCCV7905-62-93 04:37:00 Test Item Value Reference Range Interpretation Comments Lymphocytes (test code = Lymphocytes) 23.7 20.0-40.0 [facility] CenterQfymrjiUUMHRHHDOA8634-78-34 04:37:00 Test Item Value Reference Range Interpretation Comments Monocytes (test code = Monocytes) 8.8 2.0-12.0 [facility] CenterEzlxjwmLFFOGKPRRL5410-74-83 04:37:00 Test Item Value Reference Range Interpretation Comments Segs (test code = Segs) 62.3 45.0-75.0 [facility] AND [id number] 04:37:00 Test Item Value Reference Range Interpretation Comments UA Gran Cast (test code = UA Gran 6-10 /LPF Cast) [facility] AND [id number] 04:37:00 Test Item Value Reference Range Interpretation Comments UA Color (test code = Yellow *NA*(02/27/18 UA Color) 10:37 PM) [facility] AND [id number] 04:37:00 Test Item Value Reference Range Interpretation Comments UA Turbidity (test code Moderate = UA Turbidity) *ABN*(02/27/18 10:37 PM) [facility] AND [id number] 04:37:00 Test Item Value Reference Range Interpretation Comments UA Amorph Atiya (test code = Occasional /HPF UA Amorph Atiya) [facility] AND [id number] 04:37:00 Test Item Value Reference Range Interpretation Comments UA Bacteria (test code = UA Occasional /HPF Bacteria) [facility] AND [id number] 04:37:00 Test Item Value Reference Range Interpretation Comments UA Mucus (test code = UA Mucus) Few /LPF [facility] AND [id number] 04:37:00 Test Item Value Reference Range Interpretation Comments UA RBC (test code = 1 See_Comment [Automa garrett message] The UA RBC) system which ge nerated this result transmit garrett reference range : <=2. The reference range was not used to interpr et this result as cassie l/abnormal. [facility] AND [id number] 04:37:00 Test Item Value Reference Range Interpretation Comments UA Leuk Est (test Negative (02/27/18 10:37 code = UA Leuk Est) PM) [facility] AND [id number] 04:37:00 Test Item Value Reference Range Interpretation Comments UA Nitrite (test code Negative (02/27/18 = UA Nitrite) 10:37 PM) [facility] AND [id number] 04:37:00 Test Item Value Reference Range Interpretation Comments UA WBC (test code = 1 See_Comment [Automa garrett message] The UA WBC) system which ge nerated this result transmit garrett reference range : <=5. The reference range was not used to interpr et this result as cassie l/abnormal. [facility] AND [id number] 04:37:00 Test Item Value Reference Range Interpretation Comments UA Sq Epi (test code = UA Sq Occasional /LPF Epi) [facility] AND [id number] 04:37:00 Test Item Value Reference Range Interpretation Comments UA Protein (test code Negative (02/27/18 = UA Protein) 10:37 PM) [facility] AND [id number] 04:37:00 Test Item Value Reference Range Interpretation Comments UA Spec Grav (test code = UA Spec 1.009 1 Grav) [facility] AND [id number] 04:37:00 Test Item Value Reference Range Interpretation Comments UA pH (test code = UA pH) 6.0 1 5.0-8.0 [facility] AND [id number] 04:37:00 Test Item Value Reference Range Interpretation Comments UA Ketones (test code Negative *NA*(02/27/18 = UA Ketones) 10:37 PM) [facility] AND [id number] 04:37:00 Test Item Value Reference Range Interpretation Comments UA Urobilinogen (test code = UA <=1.0 mg/dL 0.1-1.0 Urobilinogen) [facility] AND [id number] 04:37:00 Test Item Value Reference Range Interpretation Comments UA Blood (test code = Negative (02/27/18 10:37 UA Blood) PM) [facility] [id number] 04:37:00 Test Item Value Reference Range Interpretation Comments UA Glucose (test code Negative *NA*(02/27/18 = UA Glucose) 10:37 PM) [facility] [id number] 04:37:00 Test Item Value Reference Range Interpretation Comments UA Bili (test code = Negative *NA*(02/27/18 UA Bili) 10:37 PM) [facility]VIR[facility] - [id number] 04:37:00 Test Item Value Reference Range Interpretation Comments Influ A (test code = Negative (02/27/18 10:37 Influ A) PM) [facility] SoteroannVIRAL - [id number] 04:37:00 Test Item Value Reference Range Interpretation Comments Influ B (test code = Negative (02/27/18 10:37 Influ B) PM) [facility] SeymourCARDIAC [id number] 04:37:00 Test Item Value Reference Range Interpretation Comments Troponin-I (test code no gt See_Comment [Auto mated message] The = Troponin-I) system which g enerated this result transmit garrett reference range : <=0.40. The reference r ondina was not used to interpr et this result as cassie l/abnormal. [facility] SoteroannCARDIAC [id number] 04:37:00 Test Item Value Reference Range Interpretation Comments proBNP (test code = 2678 See_Comment [Automa garrett message] The proBNP) system which ge nerated this result tra nsmitted reference range : <=125. The reference r ondina was not used to int erpret this result as cassie l/abnormal. [facility] HfrqypjSBXHYGDQXROB7116-15-55 04:37:00 Test Item Value Reference Range Interpretation Comments CO2 (test code = CO2) 25 24-32 [facility] CfwsmohRBJJBPRQEIHP1164-53-30 04:37:00 Test Item Value Reference Range Interpretation Comments Calcium Lvl (test code = Calcium Lvl) 8.1 8.5-10.5 [facility] YqlnptxMYONRYSDMIWZ3224-05-18 04:37:00 Test Item Value Reference Range Interpretation Comments Potassium Lvl (test code = Potassium 3.6 3.5-5.1 Lvl) [facility] HospitalGtgtgldJNUVHKLRDZDQ6490-11-85 04:37:00 Test Item Value Reference Range Interpretation Comments Chloride Lvl (test code = Chloride Lvl) 108 95-109 [facility]DuqfetlCCJENNPCHXRD0508-70-46 04:37:00 Test Item Value Reference Range Interpretation Comments Sodium Lvl (test code = Sodium Lvl) 142 135-145 [facility] MichiganRxigvejXZIRGJEBYJKA2416-47-25 04:37:00 Test Item Value Reference Range Interpretation Comments Creatinine Lvl (test code = Creatinine 0.80 0.50-1.40 Lvl) [facility] MichiganLnxspniCIXGAWBJESZU5162-89-79 04:37:00 Test Item Value Reference Range Interpretation Comments BUN (test code = BUN) 8 7-22 [facility] MichiganIgwlmxjISKAHJAFELHJ7481-23-89 04:37:00 Test Item Value Reference Range Interpretation Comments Glucose Lvl (test code = Glucose Lvl) 88 70-99 [facility] MichiganHkzywcwJYSRUNNZOELG9232-11-01 04:37:00 Test Item Value Reference Range Interpretation Comments eGFR (test code = eGFR) 97 [facility] MichiganEbveoqoIGWQUIRKRNBD9758-78-59 04:37:00 Test Item Value Reference Range Interpretation Comments AGAP (test code = AGAP) 12.6 10.0-20.0 [facility] CenterGgfoisaGCVZFBGTWD9633-16-83 04:37:00 Test Item Value Reference Range Interpretation Comments WBC (test code = WBC) 7.8 3.7-10.4 [facility] CenterBvshbeoPPJGGAHMTI8906-22-20 04:37:00 Test Item Value Reference Range Interpretation Comments RBC (test code = RBC) 3.53 4.70-6.10 [facility] CenterJepowupUDLHRPHLBX8456-61-59 04:37:00 Test Item Value Reference Range Interpretation Comments Hgb (test code = Hgb) 9.0 14.0-18.0 [facility] CenterFuplawdOWUWILMKXC3712-21-42 04:37:00 Test Item Value Reference Range Interpretation Comments MCH (test code = MCH) 25.4 pg 27.0-31.0 [facility] CenterBcpndqlFINDBIRAKC2683-65-96 04:37:00 Test Item Value Reference Range Interpretation Comments Hct (test code = Hct) 27.5 42.0-54.0 [facility] CenterJcvgcdvFLFRCPQPIB4962-27-17 04:37:00 Test Item Value Reference Range Interpretation Comments MCV (test code = MCV) 78.1 80.0-94.0 [place] [id number] 04:37:00 Test Item Value Reference Range Interpretation Comments Platelet (test code = Platelet) 400 133-450 [facility] CenterWrqywdlJZCDZBHAGO4491-39-81 04:37:00 Test Item Value Reference Range Interpretation Comments MCHC (test code = MCHC) 32.5 32.0-36.0 [facility] CenterLlboxlaSDFWQGNCWQ5800-06-88 04:37:00 Test Item Value Reference Range Interpretation Comments MPV (test code = MPV) 8.2 7.4-10.4 [facility] CenterIwuegjlKNNDLIGJSE4594-76-56 04:37:00 Test Item Value Reference Range Interpretation Comments RDW (test code = RDW) 17.8 11.5-14.5 [facility] CenterKddlzviNJTQEALLTH1559-75-18 04:37:00 Test Item Value Reference Range Interpretation Comments Microcyte (test code = 1+ *ABN*(02/27/18 Microcyte) 10:37 PM) [facility] CenterGrdcvqbMYBXUJXKVR0171-28-05 04:37:00 Test Item Value Reference Range Interpretation Comments Eosinophils (test code = 4.0 See_Comment [A utomated message] The Eosinophils) system which ge nerated this result tra nsmitted reference range : <=4.0. The reference r ondina was not used to int erpret this result as normal/abnormal . [facility] CenterCyltbakABFPRLMXJE6283-13-63 04:37:00 Test Item Value Reference Range Interpretation Comments Neutrophils # (test code = Neutrophils 4.8 1.5-8.1 #) [facility] CenterThhelpmTECGNUEOOW7157-21-41 04:37:00 Test Item Value Reference Range Interpretation Comments Basophils (test code = 1.2 See_Comment [Aut omated message] The Basophils) system which ge nerated this result tra nsmitted reference range : <=1.0. The reference r ondina was not used to int erpret this result as normal/abnormal . [facility] CenterVahbpieYRHSAOCVJY4714-53-37 04:37:00 Test Item Value Reference Range Interpretation Comments Lymphocytes # (test code = Lymphocytes 1.8 1.0-5.5 #) [facility] CenterKsmxpjmFRTIARYLMB9088-95-82 04:37:00 Test Item Value Reference Range Interpretation Comments Monocytes # (test code 0.7 See_Comment [Aut omated message] The = Monocytes #) system which generated this result tra nsmitted reference range : <=0.8. The reference r ondina was not used to int erpret this result as normal/abnormal . [facility] CenterPkxrlfgHLFYZHHQIU8115-01-61 04:37:00 Test Item Value Reference Range Interpretation Comments Basophils # (test code 0.1 See_Comment [Aut omated message] The = Basophils #) system which generated this result tra nsmitted reference range : <=0.2. The reference r ondina was not used to int erpret this result as normal/abnormal . [facility] CenterVytfhkxVEPRPHZTPN1899-22-56 04:37:00 Test Item Value Reference Range Interpretation Comments Eosinophils # (test code 0.3 See_Comment [A utomated message] The = Eosinophils #) system whic h generated this result tra nsmitted reference range : <=0.5. The reference r ondina was not used to int erpret this result as normal/abnormal . [facility] CenterKdtdwqlYNMQJOEESV6336-09-25 04:37:00 Test Item Value Reference Range Interpretation Comments Lymphocytes (test code = Lymphocytes) 23.7 20.0-40.0 [facility] CenterNfjbicgVDANKKYXUK4782-54-24 04:37:00 Test Item Value Reference Range Interpretation Comments Monocytes (test code = Monocytes) 8.8 2.0-12.0 [facility] CenterNsneezwOJZUBNNVJR7665-97-20 04:37:00 Test Item Value Reference Range Interpretation Comments Segs (test code = Segs) 62.3 45.0-75.0 [facility] AND [id number] 04:37:00 Test Item Value Reference Range Interpretation Comments UA Gran Cast (test code = UA Gran 6-10 /LPF Cast) [facility] AND [id number] 04:37:00 Test Item Value Reference Range Interpretation Comments UA Color (test code = Yellow *NA*(02/27/18 UA Color) 10:37 PM) [facility] AND [id number] 04:37:00 Test Item Value Reference Range Interpretation Comments UA Turbidity (test code Moderate = UA Turbidity) *ABN*(02/27/18 10:37 PM) [facility] AND [id number] 04:37:00 Test Item Value Reference Range Interpretation Comments UA Amorph Atiya (test code = Occasional /HPF UA Amorph Atiya) [facility] AND [id number] 04:37:00 Test Item Value Reference Range Interpretation Comments UA Bacteria (test code = UA Occasional /HPF Bacteria) [facility] [id number] 04:37:00 Test Item Value Reference Range Interpretation Comments UA Mucus (test code = UA Mucus) Few /LPF [facility] [id number] 04:37:00 Test Item Value Reference Range Interpretation Comments UA RBC (test code = 1 See_Comment [Automa garrett message] The UA RBC) system which ge nerated this result transmit garrett reference range : <=2. The reference range was not used to interpr et this result as cassie l/abnormal. [facility] [id number] 04:37:00 Test Item Value Reference Range Interpretation Comments UA Leuk Est (test Negative (02/27/18 10:37 code = UA Leuk Est) PM) [facility] AND [id number] 04:37:00 Test Item Value Reference Range Interpretation Comments UA Nitrite (test code Negative (02/27/18 = UA Nitrite) 10:37 PM) [facility] AND [id number] 04:37:00 Test Item Value Reference Range Interpretation Comments UA WBC (test code = 1 See_Comment [Automa garrett message] The UA WBC) system which ge nerated this result transmit garrett reference range : <=5. The reference range was not used to interpr et this result as cassie l/abnormal. [facility] AND [id number] 04:37:00 Test Item Value Reference Range Interpretation Comments UA Sq Epi (test code = UA Sq Occasional /LPF Epi) [facility] AND [id number] 04:37:00 Test Item Value Reference Range Interpretation Comments UA Protein (test code Negative (02/27/18 = UA Protein) 10:37 PM) [facility] [id number] 04:37:00 Test Item Value Reference Range Interpretation Comments UA Spec Grav (test code = UA Spec 1.009 1 Grav) [facility] AND [id number] 04:37:00 Test Item Value Reference Range Interpretation Comments UA pH (test code = UA pH) 6.0 1 5.0-8.0 [facility] AND [id number] 04:37:00 Test Item Value Reference Range Interpretation Comments UA Ketones (test code Negative *NA*(02/27/18 = UA Ketones) 10:37 PM) [facility] AND [id number] 04:37:00 Test Item Value Reference Range Interpretation Comments UA Urobilinogen (test code = UA <=1.0 mg/dL 0.1-1.0 Urobilinogen) [facility] AND [id number] 04:37:00 Test Item Value Reference Range Interpretation Comments UA Blood (test code = Negative (02/27/18 10:37 UA Blood) PM) [facility] AND [id number] 04:37:00 Test Item Value Reference Range Interpretation Comments UA Glucose (test code Negative *NA*(02/27/18 = UA Glucose) 10:37 PM) [facility] AND [id number] 04:37:00 Test Item Value Reference Range Interpretation Comments UA Bili (test code = Negative *NA*(02/27/18 UA Bili) 10:37 PM) [facility]ann[facility] - [id number] 04:37:00 Test Item Value Reference Range Interpretation Comments Influ A (test code = Negative (02/27/18 10:37 Influ A) PM) [facility] - [id number] 04:37:00 Test Item Value Reference Range Interpretation Comments Influ B (test code = Negative (02/27/18 10:37 Influ B) PM) [facility]annCARD[facility]AC [id number] 04:37:00 Test Item Value Reference Range Interpretation Comments Troponin-I (test code no gt See_Comment [Auto mated message] The = Troponin-I) system which g enerated this result transmit garrett reference range : <=0.40. The reference r ondina was not used to interpr et this result as cassie l/abnormal. [facility]annC[facility] [id number] 04:37:00 Test Item Value Reference Range Interpretation Comments proBNP (test code = 2678 See_Comment [Automa garrett message] The proBNP) system which ge nerated this result tra nsmitted reference range : <=125. The reference r ondina was not used to int erpret this result as cassie l/abnormal. [facility] HcewbtjUIZIAQOBNGVU0697-37-56 04:37:00 Test Item Value Reference Range Interpretation Comments CO2 (test code = CO2) 25 24-32 [facility]HqjujdoSTAEBUHZACMV6286-08-03 04:37:00 Test Item Value Reference Range Interpretation Comments Calcium Lvl (test code = Calcium Lvl) 8.1 8.5-10.5 [facility] MichiganVbnyzxrZGKASDYJVKNC0529-75-79 04:37:00 Test Item Value Reference Range Interpretation Comments Potassium Lvl (test code = Potassium 3.6 3.5-5.1 Lvl) [facility] MichiganWdymvuyHVESGOJUPEYS2103-56-99 04:37:00 Test Item Value Reference Range Interpretation Comments Chloride Lvl (test code = Chloride Lvl) 108 95-109 [facility] MichiganYyvuydhAFWDILFMXOPN7490-26-88 04:37:00 Test Item Value Reference Range Interpretation Comments Sodium Lvl (test code = Sodium Lvl) 142 135-145 [facility] MichiganLybjvkcGDHAQDEBDGRG9251-26-23 04:37:00 Test Item Value Reference Range Interpretation Comments Creatinine Lvl (test code = Creatinine 0.80 0.50-1.40 Lvl) [facility] MichiganJnwkpkzEMSXCUKQWTGV8988-65-73 04:37:00 Test Item Value Reference Range Interpretation Comments BUN (test code = BUN) 8 7-22 [facility] MichiganEqwiujbMFZVPARWZPTU1182-02-51 04:37:00 Test Item Value Reference Range Interpretation Comments Glucose Lvl (test code = Glucose Lvl) 88 70-99 [facility] MichiganEktrbpaXNZZAOZGOVCC2281-36-01 04:37:00 Test Item Value Reference Range Interpretation Comments eGFR (test code = eGFR) 97 [facility] MichiganYniqtpqVVUMAXKDHTNH8886-21-76 04:37:00 Test Item Value Reference Range Interpretation Comments AGAP (test code = AGAP) 12.6 10.0-20.0 [facility] CenterCcxqqbvIQGXIUDZBB9738-63-82 04:37:00 Test Item Value Reference Range Interpretation Comments WBC (test code = WBC) 7.8 3.7-10.4 [facility] CenterRylhggmHYKXSANRCB4226-11-89 04:37:00 Test Item Value Reference Range Interpretation Comments RBC (test code = RBC) 3.53 4.70-6.10 [facility] CenterCuwvymqFJYNQSMLRC6383-02-91 04:37:00 Test Item Value Reference Range Interpretation Comments Hgb (test code = Hgb) 9.0 14.0-18.0 [facility] CenterMkkjzmfYGQRYFBJWU8072-45-72 04:37:00 Test Item Value Reference Range Interpretation Comments MCH (test code = MCH) 25.4 pg 27.0-31.0 [facility] CenterSqdrlkpRBSCRJLDCA3905-67-36 04:37:00 Test Item Value Reference Range Interpretation Comments Hct (test code = Hct) 27.5 42.0-54.0 [facility] CenterYfnkzpqVORMFSYHNF8570-51-02 04:37:00 Test Item Value Reference Range Interpretation Comments MCV (test code = MCV) 78.1 80.0-94.0 [facility] CenterJhjzcmwWPXFDFDXGD0462-44-56 04:37:00 Test Item Value Reference Range Interpretation Comments Platelet (test code = Platelet) 400 133-450 [facility] CenterIscelaoBKXNUQSWSW7888-31-55 04:37:00 Test Item Value Reference Range Interpretation Comments MCHC (test code = MCHC) 32.5 32.0-36.0 [facility] CenterQfuqsloFMFVQYCLFH3331-56-38 04:37:00 Test Item Value Reference Range Interpretation Comments MPV (test code = MPV) 8.2 7.4-10.4 [facility] CenterCliicwhFNKPZXZIHZ4642-94-54 04:37:00 Test Item Value Reference Range Interpretation Comments RDW (test code = RDW) 17.8 11.5-14.5 [facility] CenterAmkjyawKKFBIJZGCG4099-39-54 04:37:00 Test Item Value Reference Range Interpretation Comments Microcyte (test code = 1+ *ABN*(02/27/18 Microcyte) 10:37 PM) [facility] CenterEcapvzqKYQEMPRWKL9882-17-70 04:37:00 Test Item Value Reference Range Interpretation Comments Eosinophils (test code = 4.0 See_Comment [A utomated message] The Eosinophils) system which ge nerated this result tra nsmitted reference range : <=4.0. The reference r ondina was not used to int erpret this result as normal/abnormal . [facility] CenterAiccehaSBTSEZJLAD9028-41-87 04:37:00 Test Item Value Reference Range Interpretation Comments Neutrophils # (test code = Neutrophils 4.8 1.5-8.1 #) [facility] CenterBksaipyDTAHQVAUOA8656-09-87 04:37:00 Test Item Value Reference Range Interpretation Comments Basophils (test code = 1.2 See_Comment [Aut omated message] The Basophils) system which ge nerated this result tra nsmitted reference range : <=1.0. The reference r ondina was not used to int erpret this result as normal/abnormal . [facility] CenterMpuodhgUYPLMCCPKA8770-05-68 04:37:00 Test Item Value Reference Range Interpretation Comments Lymphocytes # (test code = Lymphocytes 1.8 1.0-5.5 #) [facility] CenterVixvwzmGNILENTBJB0497-76-79 04:37:00 Test Item Value Reference Range Interpretation Comments Monocytes # (test code 0.7 See_Comment [Aut omated message] The = Monocytes #) system which generated this result tra nsmitted reference range : <=0.8. The reference r ondina was not used to int erpret this result as normal/abnormal . [facility] CenterPrienoyCFGFEESCTR6001-49-65 04:37:00 Test Item Value Reference Range Interpretation Comments Basophils # (test code 0.1 See_Comment [Aut omated message] The = Basophils #) system which generated this result tra nsmitted reference range : <=0.2. The reference r ondina was not used to int erpret this result as normal/abnormal . [facility] CenterNgcorvbGTWTJMYNCG3436-70-18 04:37:00 Test Item Value Reference Range Interpretation Comments Eosinophils # (test code 0.3 See_Comment [A utomated message] The = Eosinophils #) system whic h generated this result tra nsmitted reference range : <=0.5. The reference r ondina was not used to int erpret this result as normal/abnormal . [facility] CenterYfsocydIFJPWJWYWP0416-48-84 04:37:00 Test Item Value Reference Range Interpretation Comments Lymphocytes (test code = Lymphocytes) 23.7 20.0-40.0 [facility] CenterUvftpuuJWSDGRYHGT8173-27-82 04:37:00 Test Item Value Reference Range Interpretation Comments Monocytes (test code = Monocytes) 8.8 2.0-12.0 [facility] CenterHybfywjQKYDXHGQRI6517-63-98 04:37:00 Test Item Value Reference Range Interpretation Comments Segs (test code = Segs) 62.3 45.0-75.0 [facility] AND [id number] 04:37:00 Test Item Value Reference Range Interpretation Comments UA Gran Cast (test code = UA Gran 6-10 /LPF Cast) [facility] AND [id number] 04:37:00 Test Item Value Reference Range Interpretation Comments UA Color (test code = Yellow *NA*(02/27/18 UA Color) 10:37 PM) [facility] AND [id number] 04:37:00 Test Item Value Reference Range Interpretation Comments UA Turbidity (test code Moderate = UA Turbidity) *ABN*(02/27/18 10:37 PM) [facility] AND [id number] 04:37:00 Test Item Value Reference Range Interpretation Comments UA Amorph Atiya (test code = Occasional /HPF UA Amorph Atiya) [facility] AND [id number] 04:37:00 Test Item Value Reference Range Interpretation Comments UA Bacteria (test code = UA Occasional /HPF Bacteria) [facility] AND [id number] 04:37:00 Test Item Value Reference Range Interpretation Comments UA Mucus (test code = UA Mucus) Few /LPF [facility] AND [id number] 04:37:00 Test Item Value Reference Range Interpretation Comments UA RBC (test code = 1 See_Comment [Automa garrett message] The UA RBC) system which ge nerated this result transmit garrett reference range : <=2. The reference range was not used to interpr et this result as cassie l/abnormal. [facility] [id number] 04:37:00 Test Item Value Reference Range Interpretation Comments UA Leuk Est (test Negative (02/27/18 10:37 code = UA Leuk Est) PM) [facility] AND [id number] 04:37:00 Test Item Value Reference Range Interpretation Comments UA Nitrite (test code Negative (02/27/18 = UA Nitrite) 10:37 PM) [facility] AND [id number] 04:37:00 Test Item Value Reference Range Interpretation Comments UA WBC (test code = 1 See_Comment [Automa garrett message] The UA WBC) system which ge nerated this result transmit garrett reference range : <=5. The reference range was not used to interpr et this result as cassie l/abnormal. [facility] [id number] 04:37:00 Test Item Value Reference Range Interpretation Comments UA Sq Epi (test code = UA Sq Occasional /LPF Epi) [facility] [id number] 04:37:00 Test Item Value Reference Range Interpretation Comments UA Protein (test code Negative (02/27/18 = UA Protein) 10:37 PM) [facility] [id number] 04:37:00 Test Item Value Reference Range Interpretation Comments UA Spec Grav (test code = UA Spec 1.009 1 Grav) [facility] [id number] 04:37:00 Test Item Value Reference Range Interpretation Comments UA pH (test code = UA pH) 6.0 1 5.0-8.0 [facility] [id number] 04:37:00 Test Item Value Reference Range Interpretation Comments UA Ketones (test code Negative *NA*(02/27/18 = UA Ketones) 10:37 PM) [facility] [id number] 04:37:00 Test Item Value Reference Range Interpretation Comments UA Urobilinogen (test code = UA <=1.0 mg/dL 0.1-1.0 Urobilinogen) [facility] [id number] 04:37:00 Test Item Value Reference Range Interpretation Comments UA Blood (test code = Negative (02/27/18 10:37 UA Blood) PM) [facility] [id number] 04:37:00 Test Item Value Reference Range Interpretation Comments UA Glucose (test code Negative *NA*(02/27/18 = UA Glucose) 10:37 PM) [facility] [id number] 04:37:00 Test Item Value Reference Range Interpretation Comments UA Bili (test code = Negative *NA*(02/27/18 UA Bili) 10:37 PM) [facility] - [id number] 04:37:00 Test Item Value Reference Range Interpretation Comments Influ A (test code = Negative (02/27/18 10:37 Influ A) PM) [facility] - [id number] 04:37:00 Test Item Value Reference Range Interpretation Comments Influ B (test code = Negative (02/27/18 10:37 Influ B) PM) [facility] [id number] 04:37:00 Test Item Value Reference Range Interpretation Comments Troponin-I (test code = Troponin-I) no gt <=0.40 [facility]annCARD[facility] [id number] 04:37:00 Test Item Value Reference Range Interpretation Comments proBNP (test code = proBNP) 2678 <=125 [facility] MichiganRppkvgzBREWORLIEARH5698-90-81 04:37:00 Test Item Value Reference Range Interpretation Comments CO2 (test code = CO2) 25 24-32 [facility] MichiganTzdericCFQYPFSGMFGF4052-45-78 04:37:00 Test Item Value Reference Range Interpretation Comments Calcium Lvl (test code = Calcium Lvl) 8.1 8.5-10.5 [facility] MichiganUfqswdoXUGFNVNRQXAX4127-19-21 04:37:00 Test Item Value Reference Range Interpretation Comments Potassium Lvl (test code = Potassium 3.6 3.5-5.1 Lvl) [facility] MichiganHhpwslaXYREVLVAFTHM7833-01-52 04:37:00 Test Item Value Reference Range Interpretation Comments Chloride Lvl (test code = Chloride Lvl) 108 95-109 [facility] MichiganQrcpzgdNEACXUSIPKGC4194-41-36 04:37:00 Test Item Value Reference Range Interpretation Comments Sodium Lvl (test code = Sodium Lvl) 142 135-145 [facility] MichiganAnxfbufIINLMKDIFBCV2330-71-33 04:37:00 Test Item Value Reference Range Interpretation Comments Creatinine Lvl (test code = Creatinine 0.80 0.50-1.40 Lvl) [facility] MichiganQclbiqcIVKZWCDWFGBS8853-99-48 04:37:00 Test Item Value Reference Range Interpretation Comments BUN (test code = BUN) 8 7-22 [facility] MichiganJszdsbsWHWGKQISLPPW4582-07-48 04:37:00 Test Item Value Reference Range Interpretation Comments Glucose Lvl (test code = Glucose Lvl) 88 70-99 [facility] MichiganFvszurqXFMFMXBQAZDA8488-38-62 04:37:00 Test Item Value Reference Range Interpretation Comments eGFR (test code = eGFR) 97 [facility] MichiganAacdnmxGBSUUOSRVKNC2138-20-19 04:37:00 Test Item Value Reference Range Interpretation Comments AGAP (test code = AGAP) 12.6 10.0-20.0 [facility] MichiganYnqbqjeGKDVALSJAU9217-96-72 04:37:00 Test Item Value Reference Range Interpretation Comments WBC (test code = WBC) 7.8 3.7-10.4 [facility] MichiganQqwadzcXSKZNSPZLV5168-58-07 04:37:00 Test Item Value Reference Range Interpretation Comments RBC (test code = RBC) 3.53 4.70-6.10 [facility] CenterHciltxdIUDEHSDCPO5550-21-61 04:37:00 Test Item Value Reference Range Interpretation Comments Hgb (test code = Hgb) 9.0 14.0-18.0 [facility] CenterNzvwenaGMDWFSKUEZ7285-10-34 04:37:00 Test Item Value Reference Range Interpretation Comments MCH (test code = MCH) 25.4 pg 27.0-31.0 [facility] CenterHctnzztVENFILWICT3006-88-14 04:37:00 Test Item Value Reference Range Interpretation Comments Hct (test code = Hct) 27.5 42.0-54.0 [facility] CenterSrlogfbNUGVMTRBWE4076-83-83 04:37:00 Test Item Value Reference Range Interpretation Comments MCV (test code = MCV) 78.1 80.0-94.0 [facility] CenterTuuuxpeSZWBEBUMOQ6776-42-34 04:37:00 Test Item Value Reference Range Interpretation Comments Platelet (test code = Platelet) 400 133-450 [facility] CenterHmfgsnuQOFIUYFHVJ3385-17-87 04:37:00 Test Item Value Reference Range Interpretation Comments MCHC (test code = MCHC) 32.5 32.0-36.0 [facility] CenterNdjtwdkQLVFUVDUPU2282-67-93 04:37:00 Test Item Value Reference Range Interpretation Comments MPV (test code = MPV) 8.2 7.4-10.4 [facility] CenterTetgmhoWQBMRUPFKG0098-70-03 04:37:00 Test Item Value Reference Range Interpretation Comments RDW (test code = RDW) 17.8 11.5-14.5 [facility] CenterPsjfyybPLKVVIVMBC3304-77-11 04:37:00 Test Item Value Reference Range Interpretation Comments Microcyte (test code = 1+ *ABN*(02/27/18 Microcyte) 10:37 PM) [facility] CenterVxtgwdqCZPMPCBCKR3589-51-99 04:37:00 Test Item Value Reference Range Interpretation Comments Eosinophils (test code = Eosinophils) 4.0 <=4.0 [facility] CenterVtzaimlNKUXSJMZPV4816-42-29 04:37:00 Test Item Value Reference Range Interpretation Comments Neutrophils # (test code = Neutrophils 4.8 1.5-8.1 #) [facility] CenterDmhiopjHEINGHSSAA8084-52-34 04:37:00 Test Item Value Reference Range Interpretation Comments Basophils (test code = Basophils) 1.2 <=1.0 [facility] CenterAxfkfbdMWUQPMMMNF1135-12-89 04:37:00 Test Item Value Reference Range Interpretation Comments Lymphocytes # (test code = Lymphocytes 1.8 1.0-5.5 #) [facility] CenterZimhhcfPJYKRKXEYX1572-81-75 04:37:00 Test Item Value Reference Range Interpretation Comments Monocytes # (test code = Monocytes #) 0.7 <=0.8 [facility] CenterHlxowkcOKGXEBEYRH7400-36-94 04:37:00 Test Item Value Reference Range Interpretation Comments Basophils # (test code = Basophils #) 0.1 <=0.2 [facility] CenterNohgxhqKKDITIUOGL8578-92-65 04:37:00 Test Item Value Reference Range Interpretation Comments Eosinophils # (test code = Eosinophils 0.3 <=0.5 #) [facility] CenterImwgcwuTKBFGKEUHK8240-71-20 04:37:00 Test Item Value Reference Range Interpretation Comments Lymphocytes (test code = Lymphocytes) 23.7 20.0-40.0 [facility] CenterOixvofyCGUQAJFMUR2284-86-18 04:37:00 Test Item Value Reference Range Interpretation Comments Monocytes (test code = Monocytes) 8.8 2.0-12.0 [facility] CenterPpltrwnIBJUXECHQN9127-89-18 04:37:00 Test Item Value Reference Range Interpretation Comments Segs (test code = Segs) 62.3 45.0-75.0 [facility] AND [id number] 04:37:00 Test Item Value Reference Range Interpretation Comments UA Gran Cast (test code = UA Gran 6-10 /LPF Cast) [facility] AND [id number] 04:37:00 Test Item Value Reference Range Interpretation Comments UA Color (test code = Yellow *NA*(02/27/18 UA Color) 10:37 PM) [facility] AND [id number] 04:37:00 Test Item Value Reference Range Interpretation Comments UA Turbidity (test code Moderate = UA Turbidity) *ABN*(02/27/18 10:37 PM) [facility] [facility] AND [id number] 04:37:00 Test Item Value Reference Range Interpretation Comments UA Amorph Atiya (test code = Occasional /HPF UA Amorph Atiya) [facility] AND [id number] 04:37:00 Test Item Value Reference Range Interpretation Comments UA Bacteria (test code = UA Occasional /HPF Bacteria) [facility] AND [id number] 04:37:00 Test Item Value Reference Range Interpretation Comments UA Mucus (test code = UA Mucus) Few /LPF [facility] AND [id number] 04:37:00 Test Item Value Reference Range Interpretation Comments UA RBC (test code = UA RBC) 1 <=2 [facility] AND [id number] 04:37:00 Test Item Value Reference Range Interpretation Comments UA Leuk Est (test Negative (02/27/18 10:37 code = UA Leuk Est) PM) [facility] AND [id number] 04:37:00 Test Item Value Reference Range Interpretation Comments UA Nitrite (test code Negative (02/27/18 = UA Nitrite) 10:37 PM) [facility] AND [id number] 04:37:00 Test Item Value Reference Range Interpretation Comments UA WBC (test code = UA WBC) 1 <=5 [facility] AND [id number] 04:37:00 Test Item Value Reference Range Interpretation Comments UA Sq Epi (test code = UA Sq Occasional /LPF Epi) [facility] AND [id number] 04:37:00 Test Item Value Reference Range Interpretation Comments UA Protein (test code Negative (02/27/18 = UA Protein) 10:37 PM) [facility] AND [id number] 04:37:00 Test Item Value Reference Range Interpretation Comments UA Spec Grav (test code = UA Spec 1.009 1 Grav) [facility] AND [id number] 04:37:00 Test Item Value Reference Range Interpretation Comments UA pH (test code = UA pH) 6.0 1 5.0-8.0 [facility] AND [id number] 04:37:00 Test Item Value Reference Range Interpretation Comments UA Ketones (test code Negative *NA*(02/27/18 = UA Ketones) 10:37 PM) [facility] AND [id number] 04:37:00 Test Item Value Reference Range Interpretation Comments UA Urobilinogen (test code = UA <=1.0 mg/dL 0.1-1.0 Urobilinogen) [facility] AND [id number] 04:37:00 Test Item Value Reference Range Interpretation Comments UA Blood (test code = Negative (02/27/18 10:37 UA Blood) PM) [facility] AND [id number] 04:37:00 Test Item Value Reference Range Interpretation Comments UA Glucose (test code Negative *NA*(02/27/18 = UA Glucose) 10:37 PM) [facility] AND [id number] 04:37:00 Test Item Value Reference Range Interpretation Comments UA Bili (test code = Negative *NA*(02/27/18 UA Bili) 10:37 PM) [facility] [id number] 04:37:00 Test Item Value Reference Range Interpretation Comments Influ A (test code = Negative (02/27/18 10:37 Influ A) PM) [facility] [id number] 04:37:00 Test Item Value Reference Range Interpretation Comments Influ B (test code = Negative (02/27/18 10:37 Influ B) PM) [facility]ljpYAIEFJUTQMVE7397-08-79 12:27:00 Test Item Value Reference Range Interpretation Comments AGAP (test code = AGAP) 12.7 10.0-20.0 [facility]MgcadkxZTLCYAQIZHUQ4181-94-75 12:27:00 Test Item Value Reference Range Interpretation Comments Glucose Lvl (test code = Glucose Lvl) 79 70-99 [facility]QmunybxOEVHPNTDGPGI6837-06-27 12:27:00 Test Item Value Reference Range Interpretation Comments Potassium Lvl (test code = Potassium 3.7 3.5-5.1 Lvl) [facility]NqggokyPKMTJQPNKHZI0921-17-22 12:27:00 Test Item Value Reference Range Interpretation Comments Sodium Lvl (test code = Sodium Lvl) 144 135-145 [facility]AvbrnezBYSJKTUAWMOY1365-82-86 12:27:00 Test Item Value Reference Range Interpretation Comments Chloride Lvl (test code = Chloride Lvl) 109 95-109 [facility]OpvwaydKVDKSVSDRNCY8308-68-05 12:27:00 Test Item Value Reference Range Interpretation Comments eGFR (test code = eGFR) 104 [facility]QlqdewfFXUDPMQWXWMD8479-93-13 12:27:00 Test Item Value Reference Range Interpretation Comments Creatinine Lvl (test code = Creatinine 0.68 0.50-1.40 Lvl) [facility]XibcptrOLDZJIWAYTQJ6868-78-63 12:27:00 Test Item Value Reference Range Interpretation Comments Calcium Lvl (test code = Calcium Lvl) 8.2 8.5-10.5 [facility]VqkvsuvDCSKTNHDJVNN2702-41-35 12:27:00 Test Item Value Reference Range Interpretation Comments CO2 (test code = CO2) 26 24-32 [facility]SrcsbvtUFGXQWHYBILA6106-71-36 12:27:00 Test Item Value Reference Range Interpretation Comments BUN (test code = BUN) 9 7-22 [facility] CenterCkrlyslAIZOPGKQJA3590-91-87 12:27:00 Test Item Value Reference Range Interpretation Comments MPV (test code = MPV) 8.2 7.4-10.4 [facility] CenterDxdobudFKWFHNMEFU4727-70-46 12:27:00 Test Item Value Reference Range Interpretation Comments RDW (test code = RDW) 17.6 11.5-14.5 [facility] CenterPgkmzeyMIYZJJUEGE3075-17-92 12:27:00 Test Item Value Reference Range Interpretation Comments Platelet (test code = Platelet) 336 133-450 [facility] CenterYccwnhsVODPCCEOZV4610-77-17 12:27:00 Test Item Value Reference Range Interpretation Comments MCV (test code = MCV) 80.4 80.0-94.0 [facility] CenterZycfcigTEVUVVBBLW3276-25-28 12:27:00 Test Item Value Reference Range Interpretation Comments MCH (test code = MCH) 25.7 pg 27.0-31.0 [facility] CenterJffotweHCHAAJHOWW5859-36-31 12:27:00 Test Item Value Reference Range Interpretation Comments MCHC (test code = MCHC) 32.0 32.0-36.0 [facility] CenterFpzwaxbDGVUANUPQL5223-31-98 12:27:00 Test Item Value Reference Range Interpretation Comments RBC (test code = RBC) 3.65 4.70-6.10 [facility] CenterPhvsvzoVLNYERPZPM1081-50-91 12:27:00 Test Item Value Reference Range Interpretation Comments WBC (test code = WBC) 6.8 3.7-10.4 [facility] CenterIksipfbQSXFZAHHXJ9444-95-57 12:27:00 Test Item Value Reference Range Interpretation Comments Hgb (test code = Hgb) 9.4 14.0-18.0 [facility] CenterKbiubryFDBHTQWDTE2703-39-75 12:27:00 Test Item Value Reference Range Interpretation Comments Hct (test code = Hct) 29.3 42.0-54.0 [facility] CenterSxqznswFQVKMHYECN9421-57-40 12:27:00 Test Item Value Reference Range Interpretation Comments Lymphocytes # (test code = Lymphocytes 1.4 1.0-5.5 #) [facility] CenterYwwqcibTXVRPJOECU6402-71-14 12:27:00 Test Item Value Reference Range Interpretation Comments Monocytes # (test code 0.6 See_Comment [Aut omated message] The = Monocytes #) system which generated this result tra nsmitted reference range : <=0.8. The reference r ondina was not used to int erpret this result as normal/abnormal . [facility] CenterNzpgtcmOEVMMQILCM8886-05-24 12:27:00 Test Item Value Reference Range Interpretation Comments Basophils # (test code 0.1 See_Comment [Aut omated message] The = Basophils #) system which generated this result tra nsmitted reference range : <=0.2. The reference r ondina was not used to int erpret this result as normal/abnormal . [facility] CenterQrwfxeoXPZBCVZUPD1526-49-72 12:27:00 Test Item Value Reference Range Interpretation Comments Neutrophils # (test code = Neutrophils 4.5 1.5-8.1 #) [facility] CenterGplqngpZBTVXAENXU9464-15-26 12:27:00 Test Item Value Reference Range Interpretation Comments Lymphocytes (test code = Lymphocytes) 19.9 20.0-40.0 [facility] CenterTopibupGDCULESYSI2089-00-61 12:27:00 Test Item Value Reference Range Interpretation Comments Monocytes (test code = Monocytes) 8.8 2.0-12.0 [facility] CenterXqmvfdzGKIVYTDDEC0660-06-52 12:27:00 Test Item Value Reference Range Interpretation Comments Segs (test code = Segs) 66.4 45.0-75.0 [facility] CenterQwcvouyQRLHWRKAMT7151-50-82 12:27:00 Test Item Value Reference Range Interpretation Comments Eosinophils # (test code 0.3 See_Comment [A utomated message] The = Eosinophils #) system whic h generated this result tra nsmitted reference range : <=0.5. The reference r ondina was not used to int erpret this result as normal/abnormal . [facility] CenterUxijtrdOFWLWVPICE2402-57-19 12:27:00 Test Item Value Reference Range Interpretation Comments Basophils (test code = 1.0 See_Comment [Aut omated message] The Basophils) system which ge nerated this result tra nsmitted reference range : <=1.0. The reference r ondina was not used to int erpret this result as normal/abnormal . [facility]MjflbvxAFRNQSHDFG4167-60-86 12:27:00 Test Item Value Reference Range Interpretation Comments Eosinophils (test code = 3.9 See_Comment [A utomated message] The Eosinophils) system which ge nerated this result tra nsmitted reference range : <=4.0. The reference r ondina was not used to int erpret this result as normal/abnormal . [facility]KzowrwqDTWSBSTJVXFI7922-30-16 12:27:00 Test Item Value Reference Range Interpretation Comments AGAP (test code = AGAP) 12.7 10.0-20.0 [facility]QfbgxrlAYMVGXMFKYQC9094-23-74 12:27:00 Test Item Value Reference Range Interpretation Comments Glucose Lvl (test code = Glucose Lvl) 79 70-99 [facility]EuswfivXOJCSLRJZDVN4209-50-53 12:27:00 Test Item Value Reference Range Interpretation Comments Potassium Lvl (test code = Potassium 3.7 3.5-5.1 Lvl) [facility]ZsrnrndIBMWNMCYOQWI8914-63-00 12:27:00 Test Item Value Reference Range Interpretation Comments Sodium Lvl (test code = Sodium Lvl) 144 135-145 [facility]UldvalxKTSUGUYKBKRC5790-67-92 12:27:00 Test Item Value Reference Range Interpretation Comments Chloride Lvl (test code = Chloride Lvl) 109 95-109 [facility]RvopowpLVBQGNGBZSGR6765-91-31 12:27:00 Test Item Value Reference Range Interpretation Comments eGFR (test code = eGFR) 104 [facility]UyctscmSSEJAWXUXLPM2045-85-76 12:27:00 Test Item Value Reference Range Interpretation Comments Creatinine Lvl (test code = Creatinine 0.68 0.50-1.40 Lvl) [facility]SynadpdGZJAGTOAEPEH4271-99-83 12:27:00 Test Item Value Reference Range Interpretation Comments Calcium Lvl (test code = Calcium Lvl) 8.2 8.5-10.5 [facility]OteglviJIRHOTOERVSZ2567-12-31 12:27:00 Test Item Value Reference Range Interpretation Comments CO2 (test code = CO2) 26 24-32 [facility]JdqkeutWIBYYJOFMWJT3400-66-55 12:27:00 Test Item Value Reference Range Interpretation Comments BUN (test code = BUN) 9 7-22 [facility] CenterKeuhybcUGSOPAZSBI5531-84-32 12:27:00 Test Item Value Reference Range Interpretation Comments MPV (test code = MPV) 8.2 7.4-10.4 [facility] CenterWgdlmewQHQCRYJMAN3895-79-83 12:27:00 Test Item Value Reference Range Interpretation Comments RDW (test code = RDW) 17.6 11.5-14.5 [facility] CenterXulxrhmQAIQGFYZPK9792-64-93 12:27:00 Test Item Value Reference Range Interpretation Comments Platelet (test code = Platelet) 336 133-450 [facility] CenterHavykssEIVNISPNLR3916-55-98 12:27:00 Test Item Value Reference Range Interpretation Comments MCV (test code = MCV) 80.4 80.0-94.0 [facility] CenterOuhydciRRCHIFWGXS1807-19-32 12:27:00 Test Item Value Reference Range Interpretation Comments MCH (test code = MCH) 25.7 pg 27.0-31.0 [facility] CenterLmsrjxsBNXEKEQDTM3017-73-89 12:27:00 Test Item Value Reference Range Interpretation Comments MCHC (test code = MCHC) 32.0 32.0-36.0 [facility] CenterNmdvkpvRERMIVOMSM7347-49-29 12:27:00 Test Item Value Reference Range Interpretation Comments RBC (test code = RBC) 3.65 4.70-6.10 [facility] CenterXfwqmzvXAOJDMRCRY3741-66-27 12:27:00 Test Item Value Reference Range Interpretation Comments WBC (test code = WBC) 6.8 3.7-10.4 [facility] CenterMopitebLTDFIQJPLL7100-28-81 12:27:00 Test Item Value Reference Range Interpretation Comments Hgb (test code = Hgb) 9.4 14.0-18.0 [facility] CenterFzripavUTBPTYBHXE1943-29-92 12:27:00 Test Item Value Reference Range Interpretation Comments Hct (test code = Hct) 29.3 42.0-54.0 [facility] CenterIywtxxmFZKOCODOTC2524-70-28 12:27:00 Test Item Value Reference Range Interpretation Comments Lymphocytes # (test code = Lymphocytes 1.4 1.0-5.5 #) [facility] CenterDgcffmiVZKOHZPISK0385-28-63 12:27:00 Test Item Value Reference Range Interpretation Comments Monocytes # (test code 0.6 See_Comment [Aut omated message] The = Monocytes #) system which generated this result tra nsmitted reference range : <=0.8. The reference r ondina was not used to int erpret this result as normal/abnormal . [facility] CenterKnhmhwgEOJCHLUUSS7330-64-72 12:27:00 Test Item Value Reference Range Interpretation Comments Basophils # (test code 0.1 See_Comment [Aut omated message] The = Basophils #) system which generated this result tra nsmitted reference range : <=0.2. The reference r ondina was not used to int erpret this result as normal/abnormal . [facility] CenterIlpfxxoCMXSXQGVAE0952-79-36 12:27:00 Test Item Value Reference Range Interpretation Comments Neutrophils # (test code = Neutrophils 4.5 1.5-8.1 #) [facility] CenterHvftleiPPIKJAUKJS6309-76-82 12:27:00 Test Item Value Reference Range Interpretation Comments Lymphocytes (test code = Lymphocytes) 19.9 20.0-40.0 [facility] CenterYxibsxrRQILLKRSYC8174-07-92 12:27:00 Test Item Value Reference Range Interpretation Comments Monocytes (test code = Monocytes) 8.8 2.0-12.0 [facility] CenterCstuaptWEKMAZPRXF4856-36-79 12:27:00 Test Item Value Reference Range Interpretation Comments Segs (test code = Segs) 66.4 45.0-75.0 [facility] CenterOhvmgieMNPHGKGXHQ7691-47-32 12:27:00 Test Item Value Reference Range Interpretation Comments Eosinophils # (test code 0.3 See_Comment [A utomated message] The = Eosinophils #) system wh h generated this result tra nsmitted reference range : <=0.5. The reference r ondina was not used to int erpret this result as normal/abnormal . [facility] CenterFmtkvljLAFPOQKUDY4203-12-09 12:27:00 Test Item Value Reference Range Interpretation Comments Basophils (test code = 1.0 See_Comment [Aut omated message] The Basophils) system which ge nerated this result tra nsmitted reference range : <=1.0. The reference r ondina was not used to int erpret this result as normal/abnormal . [facility] CenterZfzxyewXAJRYLEBDD1079-44-83 12:27:00 Test Item Value Reference Range Interpretation Comments Eosinophils (test code = 3.9 See_Comment [A utomated message] The Eosinophils) system which ge nerated this result tra nsmitted reference range : <=4.0. The reference r ondina was not used to int erpret this result as normal/abnormal . [facility]JlgpfbjUSPNRWYALTJK5446-39-03 12:27:00 Test Item Value Reference Range Interpretation Comments AGAP (test code = AGAP) 12.7 10.0-20.0 [facility]ZspfdxkNIPJNQGZSBDE2766-09-42 12:27:00 Test Item Value Reference Range Interpretation Comments Glucose Lvl (test code = Glucose Lvl) 79 70-99 [facility]YhdbqorNOSOCJEHXYWH5750-13-90 12:27:00 Test Item Value Reference Range Interpretation Comments Potassium Lvl (test code = Potassium 3.7 3.5-5.1 Lvl) [facility]XxiwclnALOWJARTRWUJ5713-37-99 12:27:00 Test Item Value Reference Range Interpretation Comments Sodium Lvl (test code = Sodium Lvl) 144 135-145 [facility]JqunyndKTSFSLLQCSUZ0034-90-30 12:27:00 Test Item Value Reference Range Interpretation Comments Chloride Lvl (test code = Chloride Lvl) 109 95-109 [facility]XrcxrqhFPDMDCLTTXEH0092-94-05 12:27:00 Test Item Value Reference Range Interpretation Comments eGFR (test code = eGFR) 104 [facility]FdqirlyLVTGXPFJUNDS6059-93-67 12:27:00 Test Item Value Reference Range Interpretation Comments Creatinine Lvl (test code = Creatinine 0.68 0.50-1.40 Lvl) [facility]ZrjowcxPOZDDCXPOQGD7348-74-34 12:27:00 Test Item Value Reference Range Interpretation Comments Calcium Lvl (test code = Calcium Lvl) 8.2 8.5-10.5 [facility]FxdccwuKECYZHISDLMK1320-21-13 12:27:00 Test Item Value Reference Range Interpretation Comments CO2 (test code = CO2) 26 24-32 [facility]BqrtbssJSWGWZRGVDUY7502-40-21 12:27:00 Test Item Value Reference Range Interpretation Comments BUN (test code = BUN) 9 7-22 [facility] CenterLcmqfwgBWZSNHATAJ7961-62-09 12:27:00 Test Item Value Reference Range Interpretation Comments MPV (test code = MPV) 8.2 7.4-10.4 [facility] CenterZwwrcmdCVXBSEQYMZ1558-31-82 12:27:00 Test Item Value Reference Range Interpretation Comments RDW (test code = RDW) 17.6 11.5-14.5 [facility] CenterJuqpveiZDBEYCKGXI5884-57-80 12:27:00 Test Item Value Reference Range Interpretation Comments Platelet (test code = Platelet) 336 133-450 [facility] CenterKaooujaGKFGVZABOB9036-47-80 12:27:00 Test Item Value Reference Range Interpretation Comments MCV (test code = MCV) 80.4 80.0-94.0 [facility] CenterWltfmvtYMQGAZYVDZ8620-30-82 12:27:00 Test Item Value Reference Range Interpretation Comments MCH (test code = MCH) 25.7 pg 27.0-31.0 [facility] CenterLqclqwcSIFSLBRKLA9633-34-98 12:27:00 Test Item Value Reference Range Interpretation Comments MCHC (test code = MCHC) 32.0 32.0-36.0 [facility] CenterTonkuydCOPHWJMUUU0828-16-77 12:27:00 Test Item Value Reference Range Interpretation Comments RBC (test code = RBC) 3.65 4.70-6.10 [facility] CenterErzfqlgVHJYGGJAFW3483-28-28 12:27:00 Test Item Value Reference Range Interpretation Comments WBC (test code = WBC) 6.8 3.7-10.4 [facility] CenterLzeqgwsWPPQNVPQXU0479-65-75 12:27:00 Test Item Value Reference Range Interpretation Comments Hgb (test code = Hgb) 9.4 14.0-18.0 [facility] CenterWodbrxvYCGVVSFFYH8191-85-98 12:27:00 Test Item Value Reference Range Interpretation Comments Hct (test code = Hct) 29.3 42.0-54.0 [facility] CenterUjjdpzdDYGDMELVFE5620-21-03 12:27:00 Test Item Value Reference Range Interpretation Comments Lymphocytes # (test code = Lymphocytes 1.4 1.0-5.5 #) [facility] CenterBslchtmHTJIWQIHYW4492-86-45 12:27:00 Test Item Value Reference Range Interpretation Comments Monocytes # (test code 0.6 See_Comment [Aut omated message] The = Monocytes #) system which generated this result tra nsmitted reference range : <=0.8. The reference r ondina was not used to int erpret this result as normal/abnormal . [facility] CenterCrhttifPXMYLVLLRX5997-71-74 12:27:00 Test Item Value Reference Range Interpretation Comments Basophils # (test code 0.1 See_Comment [Aut omated message] The = Basophils #) system which generated this result tra nsmitted reference range : <=0.2. The reference r ondina was not used to int erpret this result as normal/abnormal . [facility] CenterCtrbyklMFGKXKFDAA9774-53-88 12:27:00 Test Item Value Reference Range Interpretation Comments Neutrophils # (test code = Neutrophils 4.5 1.5-8.1 #) [facility] CenterSeuiishKUFNEIRXEL3672-63-87 12:27:00 Test Item Value Reference Range Interpretation Comments Lymphocytes (test code = Lymphocytes) 19.9 20.0-40.0 [facility] CenterCbrsrgkKMLCVDVIKZ7208-46-14 12:27:00 Test Item Value Reference Range Interpretation Comments Monocytes (test code = Monocytes) 8.8 2.0-12.0 [facility] CenterLospmmrRLPLCFYCRH7210-58-64 12:27:00 Test Item Value Reference Range Interpretation Comments Segs (test code = Segs) 66.4 45.0-75.0 [facility] CenterBdiijxgYQDTLZLUZY5081-77-44 12:27:00 Test Item Value Reference Range Interpretation Comments Eosinophils # (test code 0.3 See_Comment [A utomated message] The = Eosinophils #) system whic h generated this result tra nsmitted reference range : <=0.5. The reference r ondina was not used to int erpret this result as normal/abnormal . [facility] CenterUjqvwubIUIQBIOIJO4231-66-81 12:27:00 Test Item Value Reference Range Interpretation Comments Basophils (test code = 1.0 See_Comment [Aut omated message] The Basophils) system which ge nerated this result tra nsmitted reference range : <=1.0. The reference r ondina was not used to int erpret this result as normal/abnormal . [facility] CenterWqsfipaZBOCOFVPVX9479-21-50 12:27:00 Test Item Value Reference Range Interpretation Comments Eosinophils (test code = 3.9 See_Comment [A utomated message] The Eosinophils) system which ge nerated this result tra nsmitted reference range : <=4.0. The reference r ondina was not used to int erpret this result as normal/abnormal . [facility] MichiganMballidRDEERAACKIPB9983-57-41 12:27:00 Test Item Value Reference Range Interpretation Comments AGAP (test code = AGAP) 12.7 10.0-20.0 [facility]UidguxqWXYPWRVDFLZL7070-12-02 12:27:00 Test Item Value Reference Range Interpretation Comments Glucose Lvl (test code = Glucose Lvl) 79 70-99 [facility]SqrtxphWOSKPXOQJLVZ6599-82-01 12:27:00 Test Item Value Reference Range Interpretation Comments Potassium Lvl (test code = Potassium 3.7 3.5-5.1 Lvl) [facility]ZhpmqszHCXSEWGCOOMD8151-82-01 12:27:00 Test Item Value Reference Range Interpretation Comments Sodium Lvl (test code = Sodium Lvl) 144 135-145 [facility] MichiganBjjtfjbJNFJEBPOENXP6825-40-22 12:27:00 Test Item Value Reference Range Interpretation Comments Chloride Lvl (test code = Chloride Lvl) 109 95-109 [facility] MichiganSqpljpaHCFCUCUSQCGK6228-71-28 12:27:00 Test Item Value Reference Range Interpretation Comments eGFR (test code = eGFR) 104 [facility] MichiganIouskvjPZCTNTKUSSVE1675-63-32 12:27:00 Test Item Value Reference Range Interpretation Comments Creatinine Lvl (test code = Creatinine 0.68 0.50-1.40 Lvl) [facility] MichiganOporolhQEAOMWCQRCEB1413-96-61 12:27:00 Test Item Value Reference Range Interpretation Comments Calcium Lvl (test code = Calcium Lvl) 8.2 8.5-10.5 [facility] MichiganNjvvcceIKLBASNHJENC7867-17-84 12:27:00 Test Item Value Reference Range Interpretation Comments CO2 (test code = CO2) 26 24-32 [facility] MichiganWmfjcbrADOTNWNDSYXT0654-59-04 12:27:00 Test Item Value Reference Range Interpretation Comments BUN (test code = BUN) 9 7-22 [facility] CenterNbiksztKHKJKBHMPS8752-76-58 12:27:00 Test Item Value Reference Range Interpretation Comments MPV (test code = MPV) 8.2 7.4-10.4 [facility] CenterBguomfhITBOGCHCJM5206-19-71 12:27:00 Test Item Value Reference Range Interpretation Comments RDW (test code = RDW) 17.6 11.5-14.5 [facility] CenterMitamrfHRTXTCLQLF7103-51-29 12:27:00 Test Item Value Reference Range Interpretation Comments Platelet (test code = Platelet) 336 133-450 [facility] CenterKxagvsfGNZZPLGYUE8546-69-60 12:27:00 Test Item Value Reference Range Interpretation Comments MCV (test code = MCV) 80.4 80.0-94.0 [facility] CenterLgmckseQEPPSKIHCW7144-00-80 12:27:00 Test Item Value Reference Range Interpretation Comments MCH (test code = MCH) 25.7 pg 27.0-31.0 [facility] CenterAsypnbeQVCSGFESFR3818-06-10 12:27:00 Test Item Value Reference Range Interpretation Comments MCHC (test code = MCHC) 32.0 32.0-36.0 [facility] CenterQjhttwgZNFFBQDTKL2316-72-91 12:27:00 Test Item Value Reference Range Interpretation Comments RBC (test code = RBC) 3.65 4.70-6.10 [facility] CenterEbijyxmUHEAWLHSGS5325-74-94 12:27:00 Test Item Value Reference Range Interpretation Comments WBC (test code = WBC) 6.8 3.7-10.4 [facility] CenterDnalukeACBNRGPJMB3567-00-76 12:27:00 Test Item Value Reference Range Interpretation Comments Hgb (test code = Hgb) 9.4 14.0-18.0 [facility] CenterMfswzfkBDMUQQGNTQ9961-28-42 12:27:00 Test Item Value Reference Range Interpretation Comments Hct (test code = Hct) 29.3 42.0-54.0 [facility] CenterHnrfeetYUFNPOPXMS0426-82-06 12:27:00 Test Item Value Reference Range Interpretation Comments Lymphocytes # (test code = Lymphocytes 1.4 1.0-5.5 #) [facility] CenterFbvmyqcWAEXQYPROC3553-24-37 12:27:00 Test Item Value Reference Range Interpretation Comments Monocytes # (test code 0.6 See_Comment [Aut omated message] The = Monocytes #) system which generated this result tra nsmitted reference range : <=0.8. The reference r ondina was not used to int erpret this result as normal/abnormal . [facility] CenterOqqpxoaXGKSRSACYL6616-11-91 12:27:00 Test Item Value Reference Range Interpretation Comments Basophils # (test code 0.1 See_Comment [Aut omated message] The = Basophils #) system which generated this result tra nsmitted reference range : <=0.2. The reference r ondina was not used to int erpret this result as normal/abnormal . [facility] CenterAakwfmaYNJHTYWXTS0629-36-65 12:27:00 Test Item Value Reference Range Interpretation Comments Neutrophils # (test code = Neutrophils 4.5 1.5-8.1 #) [facility] CenterDevydvkLTLXYODWXF2478-02-54 12:27:00 Test Item Value Reference Range Interpretation Comments Lymphocytes (test code = Lymphocytes) 19.9 20.0-40.0 [facility] CenterUuzizesWIAQIJXZYR0370-65-86 12:27:00 Test Item Value Reference Range Interpretation Comments Monocytes (test code = Monocytes) 8.8 2.0-12.0 [facility] CenterCnnxkjuTKXAOVXYSJ5087-54-04 12:27:00 Test Item Value Reference Range Interpretation Comments Segs (test code = Segs) 66.4 45.0-75.0 [facility] CenterRxojiouCZVVLSFZMB5813-29-53 12:27:00 Test Item Value Reference Range Interpretation Comments Eosinophils # (test code 0.3 See_Comment [A utomated message] The = Eosinophils #) system whic h generated this result tra nsmitted reference range : <=0.5. The reference r ondina was not used to int erpret this result as normal/abnormal . [facility] CenterSwyykseCAHUCVROFQ0334-45-81 12:27:00 Test Item Value Reference Range Interpretation Comments Basophils (test code = 1.0 See_Comment [Aut omated message] The Basophils) system which ge nerated this result tra nsmitted reference range : <=1.0. The reference r ondina was not used to int erpret this result as normal/abnormal . [facility] CenterUbocnsdFZRVXWYUIV8918-10-05 12:27:00 Test Item Value Reference Range Interpretation Comments Eosinophils (test code = 3.9 See_Comment [A utomated message] The Eosinophils) system which ge nerated this result tra nsmitted reference range : <=4.0. The reference r ondina was not used to int erpret this result as normal/abnormal . [facility]HxrlkhuFYLTAVQBSTYE6111-88-87 12:27:00 Test Item Value Reference Range Interpretation Comments AGAP (test code = AGAP) 12.7 10.0-20.0 [facility]GmpjdeePZNHLDNUJZCN9965-68-42 12:27:00 Test Item Value Reference Range Interpretation Comments Glucose Lvl (test code = Glucose Lvl) 79 70-99 [facility]PvqmrkqAEWSLYCXWIDM3282-42-02 12:27:00 Test Item Value Reference Range Interpretation Comments Potassium Lvl (test code = Potassium 3.7 3.5-5.1 Lvl) [facility]PoyfboaHZVOPUFWGCUZ3506-25-02 12:27:00 Test Item Value Reference Range Interpretation Comments Sodium Lvl (test code = Sodium Lvl) 144 135-145 [facility]VulxwkgXJEMMGQMQUVC4257-72-77 12:27:00 Test Item Value Reference Range Interpretation Comments Chloride Lvl (test code = Chloride Lvl) 109 95-109 [facility]LpkluxaNJJZQHBBYFSQ7732-35-38 12:27:00 Test Item Value Reference Range Interpretation Comments eGFR (test code = eGFR) 104 [facility]KyhwyobRMJOXBGPHUCH3116-22-07 12:27:00 Test Item Value Reference Range Interpretation Comments Creatinine Lvl (test code = Creatinine 0.68 0.50-1.40 Lvl) [facility]SxyheyqZZARSVAKFREI2237-53-39 12:27:00 Test Item Value Reference Range Interpretation Comments Calcium Lvl (test code = Calcium Lvl) 8.2 8.5-10.5 [facility]LlkzawhOONNJZKPLSIS7452-63-26 12:27:00 Test Item Value Reference Range Interpretation Comments CO2 (test code = CO2) 26 24-32 [facility]QlzjibtWDTNFHLPHRDQ2203-79-73 12:27:00 Test Item Value Reference Range Interpretation Comments BUN (test code = BUN) 9 7-22 [facility] CenterGicmyvbIUNLIYIASP0011-13-98 12:27:00 Test Item Value Reference Range Interpretation Comments MPV (test code = MPV) 8.2 7.4-10.4 [facility] CenterCzchbxeHJVJCLRYOE5926-28-00 12:27:00 Test Item Value Reference Range Interpretation Comments RDW (test code = RDW) 17.6 11.5-14.5 [facility] CenterNwchfcaLDEHFYIERE2484-85-16 12:27:00 Test Item Value Reference Range Interpretation Comments Platelet (test code = Platelet) 336 133-450 [facility] CenterFshrglyNFUOOAYQIU1505-68-88 12:27:00 Test Item Value Reference Range Interpretation Comments MCV (test code = MCV) 80.4 80.0-94.0 [facility] CenterJlotmcvRCECQUJIAH6360-65-84 12:27:00 Test Item Value Reference Range Interpretation Comments MCH (test code = MCH) 25.7 pg 27.0-31.0 [facility] CenterMyqcsykIRBHALGEPD4735-02-47 12:27:00 Test Item Value Reference Range Interpretation Comments MCHC (test code = MCHC) 32.0 32.0-36.0 [facility] CenterXjenvutYNQUVEJIXV5244-94-82 12:27:00 Test Item Value Reference Range Interpretation Comments RBC (test code = RBC) 3.65 4.70-6.10 [facility] CenterBwkywucXNTGGVKXDQ4015-52-31 12:27:00 Test Item Value Reference Range Interpretation Comments WBC (test code = WBC) 6.8 3.7-10.4 [facility] CenterYikfhxpBPOBMHHFFK4424-33-42 12:27:00 Test Item Value Reference Range Interpretation Comments Hgb (test code = Hgb) 9.4 14.0-18.0 [facility] CenterWlfumxfFVXDUWMWLH5646-47-82 12:27:00 Test Item Value Reference Range Interpretation Comments Hct (test code = Hct) 29.3 42.0-54.0 [facility] CenterKoexnpnNMMMEEWLZQ7767-05-65 12:27:00 Test Item Value Reference Range Interpretation Comments Lymphocytes # (test code = Lymphocytes 1.4 1.0-5.5 #) [facility] CenterWiyordbSBDGBWHEDU1649-77-50 12:27:00 Test Item Value Reference Range Interpretation Comments Monocytes # (test code = Monocytes #) 0.6 <=0.8 [facility] CenterVfvfkrnRYPRVZXVAM7611-90-81 12:27:00 Test Item Value Reference Range Interpretation Comments Basophils # (test code = Basophils #) 0.1 <=0.2 [facility] CenterNnrtvhcHSXIQOUGQG2662-89-81 12:27:00 Test Item Value Reference Range Interpretation Comments Neutrophils # (test code = Neutrophils 4.5 1.5-8.1 #) [facility] CenterYguubcpTRFWUVNRXC4126-36-26 12:27:00 Test Item Value Reference Range Interpretation Comments Lymphocytes (test code = Lymphocytes) 19.9 20.0-40.0 [facility] CenterHhfkrjtWCKYDNFLMM0806-65-20 12:27:00 Test Item Value Reference Range Interpretation Comments Monocytes (test code = Monocytes) 8.8 2.0-12.0 [facility] CenterVneejotALKWKQYMKY4567-90-59 12:27:00 Test Item Value Reference Range Interpretation Comments Segs (test code = Segs) 66.4 45.0-75.0 [facility] CenterNsbhqfzNCVZTHMKNV3861-07-45 12:27:00 Test Item Value Reference Range Interpretation Comments Eosinophils # (test code = Eosinophils 0.3 <=0.5 #) [place] [address]-12-20 12:27:00 Test Item Value Reference Range Interpretation Comments Basophils (test code = Basophils) 1.0 <=1.0 [facility] CenterZndsfswEVZNUJOFDS3484-10-67 12:27:00 Test Item Value Reference Range Interpretation Comments Eosinophils (test code = Eosinophils) 3.9 <=4.0 [facility]2018-12-19 10:35:00 Test Item Value Reference Range Interpretation Comments Calcium Lvl (test code = Calcium Lvl) 7.8 8.5-10.5 [facility]2018-12-19 10:35:00 Test Item Value Reference Range Interpretation Comments eGFR (test code = eGFR) 112 [facility]2018-12-19 10:35:00 Test Item Value Reference Range Interpretation Comments Creatinine Lvl (test code = Creatinine 0.56 0.50-1.40 Lvl) [facility]2018-12-19 10:35:00 Test Item Value Reference Range Interpretation Comments Phosphorus (test code = Phosphorus) 2.9 2.5-4.5 [facility]2018-12-19 10:35:00 Test Item Value Reference Range Interpretation Comments Glucose Lvl (test code = Glucose Lvl) 89 70-99 [facility]2018-12-19 10:35:00 Test Item Value Reference Range Interpretation Comments CO2 (test code = CO2) 25 24-32 [facility]2018-12-19 10:35:00 Test Item Value Reference Range Interpretation Comments BUN (test code = BUN) 9 7-22 [facility]2018-12-19 10:35:00 Test Item Value Reference Range Interpretation Comments Albumin Lvl (test code = Albumin Lvl) 2.1 3.5-5.0 [facility]2018-12-19 10:35:00 Test Item Value Reference Range Interpretation Comments Chloride Lvl (test code = Chloride Lvl) 111 95-109 [facility]2018-12-19 10:35:00 Test Item Value Reference Range Interpretation Comments Sodium Lvl (test code = Sodium Lvl) 144 135-145 [facility]2018-12-19 10:35:00 Test Item Value Reference Range Interpretation Comments Potassium Lvl (test code = Potassium 3.6 3.5-5.1 Lvl) [facility]2018-12-19 10:35:00 Test Item Value Reference Range Interpretation Comments AGAP (test code = AGAP) 11.6 10.0-20.0 [facility] CenterKrlnleeJVCASSVPJQ8162-37-21 10:35:00 Test Item Value Reference Range Interpretation Comments Hgb (test code = Hgb) 9.0 14.0-18.0 [facility] CenterOyybytvIELPEDUDID5141-29-02 10:35:00 Test Item Value Reference Range Interpretation Comments RBC (test code = RBC) 3.53 4.70-6.10 [facility] CenterOdcxlhhMOZTQTMEFU1028-21-10 10:35:00 Test Item Value Reference Range Interpretation Comments MCV (test code = MCV) 81.1 80.0-94.0 [facility] CenterVeboburFWTDVCBPMG4958-59-67 10:35:00 Test Item Value Reference Range Interpretation Comments Hct (test code = Hct) 28.6 42.0-54.0 [facility] CenterSrylsatEFHOUWYAPK3211-65-95 10:35:00 Test Item Value Reference Range Interpretation Comments WBC (test code = WBC) 6.9 3.7-10.4 [facility] CenterPazqxwxPGEJHQBVKY8642-34-79 10:35:00 Test Item Value Reference Range Interpretation Comments MPV (test code = MPV) 7.8 7.4-10.4 [facility] CenterPtpzvcqKEIZTYALZX4369-80-12 10:35:00 Test Item Value Reference Range Interpretation Comments Platelet (test code = Platelet) 294 133-450 [facility] CenterBzcmzryXZQYSKYRIB7208-46-58 10:35:00 Test Item Value Reference Range Interpretation Comments RDW (test code = RDW) 17.5 11.5-14.5 [facility] CenterXlgvfmbWEWLKZWHBG9192-06-53 10:35:00 Test Item Value Reference Range Interpretation Comments MCHC (test code = MCHC) 31.7 32.0-36.0 [facility] CenterHgyvpdqBQZMGXNOCH6263-93-35 10:35:00 Test Item Value Reference Range Interpretation Comments MCH (test code = MCH) 25.7 pg 27.0-31.0 [facility] CenterVokgjoyKCRNFOQFMQ5123-71-53 10:35:00 Test Item Value Reference Range Interpretation Comments Lymphocytes (test code = Lymphocytes) 18.5 20.0-40.0 [facility] CenterWpylzoaGZUJYTFHMD5649-36-47 10:35:00 Test Item Value Reference Range Interpretation Comments Segs (test code = Segs) 67.0 45.0-75.0 [facility] CenterFscuxryTGJTMWPGZU8406-84-57 10:35:00 Test Item Value Reference Range Interpretation Comments Monocytes (test code = Monocytes) 9.8 2.0-12.0 [facility] CenterUolobtvLBOSIURZDH5997-52-49 10:35:00 Test Item Value Reference Range Interpretation Comments Basophils (test code = 1.0 See_Comment [Aut omated message] The Basophils) system which ge nerated this result tra nsmitted reference range : <=1.0. The reference r ondina was not used to int erpret this result as normal/abnormal . [facility] CenterRtgriwrCMSYHHIBKG3577-14-18 10:35:00 Test Item Value Reference Range Interpretation Comments Eosinophils (test code = 3.7 See_Comment [A utomated message] The Eosinophils) system which ge nerated this result tra nsmitted reference range : <=4.0. The reference r ondina was not used to int erpret this result as normal/abnormal . [facility] CenterUnzofbyAERCUQYVPV2110-36-91 10:35:00 Test Item Value Reference Range Interpretation Comments Monocytes # (test code 0.7 See_Comment [Aut omated message] The = Monocytes #) system which generated this result tra nsmitted reference range : <=0.8. The reference r ondina was not used to int erpret this result as normal/abnormal . [facility] CenterCazwubwVZVKZBLOBF7917-29-85 10:35:00 Test Item Value Reference Range Interpretation Comments Lymphocytes # (test code = Lymphocytes 1.3 1.0-5.5 #) [facility] CenterGumdwyhEJIAKCNGVA9690-79-76 10:35:00 Test Item Value Reference Range Interpretation Comments Neutrophils # (test code = Neutrophils 4.6 1.5-8.1 #) [facility] CenterAfmljmzJCWRCUQXFT6341-81-58 10:35:00 Test Item Value Reference Range Interpretation Comments Basophils # (test code 0.1 See_Comment [Aut omated message] The = Basophils #) system which generated this result tra nsmitted reference range : <=0.2. The reference r ondina was not used to int erpret this result as normal/abnormal . [facility] CenterVjleymnCCLHLXRUCR4079-01-01 10:35:00 Test Item Value Reference Range Interpretation Comments Eosinophils # (test code 0.3 See_Comment [A utomated message] The = Eosinophils #) system Volpitic h generated this result tra nsmitted reference range : <=0.5. The reference r ondina was not used to int erpret this result as normal/abnormal . [place] [id number] 10:35:00 Test Item Value Reference Range Interpretation Comments Vanco Tr (test code = Vanco Tr) 21.8 [place] [id number] 10:35:00 Test Item Value Reference Range Interpretation Comments Vanco Tr TND (test code = Vanco Tr 0500 [address]) [facility]2018-12-19 10:35:00 Test Item Value Reference Range Interpretation Comments Calcium Lvl (test code = Calcium Lvl) 7.8 8.5-10.5 [facility]2018-12-19 10:35:00 Test Item Value Reference Range Interpretation Comments eGFR (test code = eGFR) 112 [facility]2018-12-19 10:35:00 Test Item Value Reference Range Interpretation Comments Creatinine Lvl (test code = Creatinine 0.56 0.50-1.40 Lvl) [facility]2018-12-19 10:35:00 Test Item Value Reference Range Interpretation Comments Phosphorus (test code = Phosphorus) 2.9 2.5-4.5 [facility]2018-12-19 10:35:00 Test Item Value Reference Range Interpretation Comments Glucose Lvl (test code = Glucose Lvl) 89 70-99 [facility]2018-12-19 10:35:00 Test Item Value Reference Range Interpretation Comments CO2 (test code = CO2) 25 24-32 [facility]2018-12-19 10:35:00 Test Item Value Reference Range Interpretation Comments BUN (test code = BUN) 9 7-22 [facility]2018-12-19 10:35:00 Test Item Value Reference Range Interpretation Comments Albumin Lvl (test code = Albumin Lvl) 2.1 3.5-5.0 [facility]2018-12-19 10:35:00 Test Item Value Reference Range Interpretation Comments Chloride Lvl (test code = Chloride Lvl) 111 95-109 [facility]2018-12-19 10:35:00 Test Item Value Reference Range Interpretation Comments Sodium Lvl (test code = Sodium Lvl) 144 135-145 [facility]2018-12-19 10:35:00 Test Item Value Reference Range Interpretation Comments Potassium Lvl (test code = Potassium 3.6 3.5-5.1 Lvl) [facility]2018-12-19 10:35:00 Test Item Value Reference Range Interpretation Comments AGAP (test code = AGAP) 11.6 10.0-20.0 [facility] CenterChbomtzGGEBSGCZBE9987-43-71 10:35:00 Test Item Value Reference Range Interpretation Comments Hgb (test code = Hgb) 9.0 14.0-18.0 [facility] CenterDqzgzvsZKBUWGHSRT6386-21-12 10:35:00 Test Item Value Reference Range Interpretation Comments RBC (test code = RBC) 3.53 4.70-6.10 [facility] CenterQjwdkxjVMZSZWDIVQ4792-93-14 10:35:00 Test Item Value Reference Range Interpretation Comments MCV (test code = MCV) 81.1 80.0-94.0 [facility] CenterAuhdgvbVVQFQYZFNR8991-86-11 10:35:00 Test Item Value Reference Range Interpretation Comments Hct (test code = Hct) 28.6 42.0-54.0 [facility] CenterLdayeheOKAUAQJMYC0843-19-29 10:35:00 Test Item Value Reference Range Interpretation Comments WBC (test code = WBC) 6.9 3.7-10.4 [facility] CenterIdfwaalTKMVEDGDFA3056-99-80 10:35:00 Test Item Value Reference Range Interpretation Comments MPV (test code = MPV) 7.8 7.4-10.4 [facility] CenterNptkyrmSJKJIVJVNV8156-44-02 10:35:00 Test Item Value Reference Range Interpretation Comments Platelet (test code = Platelet) 294 133-450 [facility] CenterCjqwchbJUKCWWKLCM4979-34-55 10:35:00 Test Item Value Reference Range Interpretation Comments RDW (test code = RDW) 17.5 11.5-14.5 [facility] CenterJltsznhCJLKSNXTYD8053-29-41 10:35:00 Test Item Value Reference Range Interpretation Comments MCHC (test code = MCHC) 31.7 32.0-36.0 [facility] CenterJivjhdwBHSOUMKGWL6380-29-92 10:35:00 Test Item Value Reference Range Interpretation Comments MCH (test code = MCH) 25.7 pg 27.0-31.0 [facility] CenterBskgkqgMUFBANDIBA3792-82-08 10:35:00 Test Item Value Reference Range Interpretation Comments Lymphocytes (test code = Lymphocytes) 18.5 20.0-40.0 [facility] CenterIqsrojoOTYIWOGNAO3365-32-35 10:35:00 Test Item Value Reference Range Interpretation Comments Segs (test code = Segs) 67.0 45.0-75.0 [facility] CenterUtqklcfCTTCCCRNQL8987-85-68 10:35:00 Test Item Value Reference Range Interpretation Comments Monocytes (test code = Monocytes) 9.8 2.0-12.0 [facility] CenterLtdmdekMKUEPWLKGV8308-96-70 10:35:00 Test Item Value Reference Range Interpretation Comments Basophils (test code = 1.0 See_Comment [Aut omated message] The Basophils) system which ge nerated this result tra nsmitted reference range : <=1.0. The reference r ondina was not used to int erpret this result as normal/abnormal . [facility] CenterHgsrjctTDURFTFIUC9962-59-29 10:35:00 Test Item Value Reference Range Interpretation Comments Eosinophils (test code = 3.7 See_Comment [A utomated message] The Eosinophils) system which ge nerated this result tra nsmitted reference range : <=4.0. The reference r ondina was not used to int erpret this result as normal/abnormal . [facility] CenterGetpixlBZAECHOEDT2610-26-35 10:35:00 Test Item Value Reference Range Interpretation Comments Monocytes # (test code 0.7 See_Comment [Aut omated message] The = Monocytes #) system which generated this result tra nsmitted reference range : <=0.8. The reference r ondina was not used to int erpret this result as normal/abnormal . [facility] CenterZibxbctBVLZJXXYPW1075-81-04 10:35:00 Test Item Value Reference Range Interpretation Comments Lymphocytes # (test code = Lymphocytes 1.3 1.0-5.5 #) [facility] CenterBdkbkubGEUWRCSZEZ0823-23-52 10:35:00 Test Item Value Reference Range Interpretation Comments Neutrophils # (test code = Neutrophils 4.6 1.5-8.1 #) [facility] CenterCtntesgSXRZGOZSFP7559-10-66 10:35:00 Test Item Value Reference Range Interpretation Comments Basophils # (test code 0.1 See_Comment [Aut omated message] The = Basophils #) system which generated this result tra nsmitted reference range : <=0.2. The reference r ondina was not used to int erpret this result as normal/abnormal . [facility] CenterGqamsyjYPYYQADGNL3830-02-61 10:35:00 Test Item Value Reference Range Interpretation Comments Eosinophils # (test code 0.3 See_Comment [A utomated message] The = Eosinophils #) system whic h generated this result tra nsmitted reference range : <=0.5. The reference r ondina was not used to int erpret this result as normal/abnormal . [place] [id number] 10:35:00 Test Item Value Reference Range Interpretation Comments Vanco Tr (test code = Vanco Tr) 21.8 [place] [id number] 10:35:00 Test Item Value Reference Range Interpretation Comments Vanco Tr TND (test code = Vanco Tr 0500 1 [address]) [facility]2018-12-19 10:35:00 Test Item Value Reference Range Interpretation Comments Calcium Lvl (test code = Calcium Lvl) 7.8 8.5-10.5 [facility]2018-12-19 10:35:00 Test Item Value Reference Range Interpretation Comments eGFR (test code = eGFR) 112 [facility]2018-12-19 10:35:00 Test Item Value Reference Range Interpretation Comments Creatinine Lvl (test code = Creatinine 0.56 0.50-1.40 Lvl) [facility]2018-12-19 10:35:00 Test Item Value Reference Range Interpretation Comments Phosphorus (test code = Phosphorus) 2.9 2.5-4.5 [facility]2018-12-19 10:35:00 Test Item Value Reference Range Interpretation Comments Glucose Lvl (test code = Glucose Lvl) 89 70-99 [facility]2018-12-19 10:35:00 Test Item Value Reference Range Interpretation Comments CO2 (test code = CO2) 25 24-32 [facility]2018-12-19 10:35:00 Test Item Value Reference Range Interpretation Comments BUN (test code = BUN) 9 7-22 [facility]2018-12-19 10:35:00 Test Item Value Reference Range Interpretation Comments Albumin Lvl (test code = Albumin Lvl) 2.1 3.5-5.0 [facility]2018-12-19 10:35:00 Test Item Value Reference Range Interpretation Comments Chloride Lvl (test code = Chloride Lvl) 111 95-109 [facility]2018-12-19 10:35:00 Test Item Value Reference Range Interpretation Comments Sodium Lvl (test code = Sodium Lvl) 144 135-145 [facility]2018-12-19 10:35:00 Test Item Value Reference Range Interpretation Comments Potassium Lvl (test code = Potassium 3.6 3.5-5.1 Lvl) [facility]2018-12-19 10:35:00 Test Item Value Reference Range Interpretation Comments AGAP (test code = AGAP) 11.6 10.0-20.0 [facility] CenterQgklsatOKLPYGWJWP5319-19-73 10:35:00 Test Item Value Reference Range Interpretation Comments Hgb (test code = Hgb) 9.0 14.0-18.0 [facility] CenterRrjutrkHFBYAPMQUM7223-35-00 10:35:00 Test Item Value Reference Range Interpretation Comments RBC (test code = RBC) 3.53 4.70-6.10 [facility] CenterKfrxflgFJJFBBXJVP9133-95-55 10:35:00 Test Item Value Reference Range Interpretation Comments MCV (test code = MCV) 81.1 80.0-94.0 [facility] CenterNjwfbqlMYDJLVOTSB4156-49-00 10:35:00 Test Item Value Reference Range Interpretation Comments Hct (test code = Hct) 28.6 42.0-54.0 [facility] CenterPjqmdztRKWNUISKUJ0130-01-31 10:35:00 Test Item Value Reference Range Interpretation Comments WBC (test code = WBC) 6.9 3.7-10.4 [facility] CenterDzrjoqsSXDNBHSBSE1013-31-23 10:35:00 Test Item Value Reference Range Interpretation Comments MPV (test code = MPV) 7.8 7.4-10.4 [facility] CenterXpqwyxpAHJMDHULXV0709-39-82 10:35:00 Test Item Value Reference Range Interpretation Comments Platelet (test code = Platelet) 294 133-450 [facility] CenterWfsnhjsFOVHPERAXI7485-24-77 10:35:00 Test Item Value Reference Range Interpretation Comments RDW (test code = RDW) 17.5 11.5-14.5 [facility] CenterOpiobrnXIDJACPCSM5143-67-90 10:35:00 Test Item Value Reference Range Interpretation Comments MCHC (test code = MCHC) 31.7 32.0-36.0 [facility] CenterJopkqdlUKJFJHSTCK3358-78-33 10:35:00 Test Item Value Reference Range Interpretation Comments MCH (test code = MCH) 25.7 pg 27.0-31.0 [facility] CenterFlbugujNDDZTSVVET4410-94-58 10:35:00 Test Item Value Reference Range Interpretation Comments Lymphocytes (test code = Lymphocytes) 18.5 20.0-40.0 [facility] CenterAsocqzpWOQFWKBWGR1181-30-36 10:35:00 Test Item Value Reference Range Interpretation Comments Segs (test code = Segs) 67.0 45.0-75.0 [facility] CenterPxkddfvJNAIDNVNPD6123-54-15 10:35:00 Test Item Value Reference Range Interpretation Comments Monocytes (test code = Monocytes) 9.8 2.0-12.0 [facility] CenterXgvtgdsDUUFBEKSZS7149-58-34 10:35:00 Test Item Value Reference Range Interpretation Comments Basophils (test code = 1.0 See_Comment [Aut omated message] The Basophils) system which ge nerated this result tra nsmitted reference range : <=1.0. The reference r ondina was not used to int erpret this result as normal/abnormal . [facility] CenterLehypxuCPEFIVUVIN4693-24-60 10:35:00 Test Item Value Reference Range Interpretation Comments Eosinophils (test code = 3.7 See_Comment [A utomated message] The Eosinophils) system which ge nerated this result tra nsmitted reference range : <=4.0. The reference r ondina was not used to int erpret this result as normal/abnormal . [facility] CenterNoclsmaOCZATKAWZK8599-07-42 10:35:00 Test Item Value Reference Range Interpretation Comments Monocytes # (test code 0.7 See_Comment [Aut omated message] The = Monocytes #) system which generated this result tra nsmitted reference range : <=0.8. The reference r ondina was not used to int erpret this result as normal/abnormal . [facility] CenterNoqalknAEJFJACDIH2136-38-11 10:35:00 Test Item Value Reference Range Interpretation Comments Lymphocytes # (test code = Lymphocytes 1.3 1.0-5.5 #) [facility] CenterVlzafdyVTARLYLBHC7290-05-32 10:35:00 Test Item Value Reference Range Interpretation Comments Neutrophils # (test code = Neutrophils 4.6 1.5-8.1 #) [facility] CenterHpmkpcqWFUBSDFHRX4642-84-07 10:35:00 Test Item Value Reference Range Interpretation Comments Basophils # (test code 0.1 See_Comment [Aut omated message] The = Basophils #) system which generated this result tra nsmitted reference range : <=0.2. The reference r ondina was not used to int erpret this result as normal/abnormal . [facility] CenterHneqdfeUDMQJWMCLK8007-24-14 10:35:00 Test Item Value Reference Range Interpretation Comments Eosinophils # (test code 0.3 See_Comment [A utomated message] The = Eosinophils #) system whic h generated this result tra nsmitted reference range : <=0.5. The reference r ondina was not used to int erpret this result as normal/abnormal . [place] [id number] 10:35:00 Test Item Value Reference Range Interpretation Comments Vanco Tr (test code = Vanco Tr) 21.8 [facility] 10:35:00 Test Item Value Reference Range Interpretation Comments Vanco Tr TND (test code = Vanco Tr 0500 [address] [facility]2018-12-19 10:35:00 Test Item Value Reference Range Interpretation Comments Calcium Lvl (test code = Calcium Lvl) 7.8 8.5-10.5 [facility]2018-12-19 10:35:00 Test Item Value Reference Range Interpretation Comments eGFR (test code = eGFR) 112 [facility]2018-12-19 10:35:00 Test Item Value Reference Range Interpretation Comments Creatinine Lvl (test code = Creatinine 0.56 0.50-1.40 Lvl) [facility]2018-12-19 10:35:00 Test Item Value Reference Range Interpretation Comments Phosphorus (test code = Phosphorus) 2.9 2.5-4.5 [facility]2018-12-19 10:35:00 Test Item Value Reference Range Interpretation Comments Glucose Lvl (test code = Glucose Lvl) 89 70-99 [facility]2018-12-19 10:35:00 Test Item Value Reference Range Interpretation Comments CO2 (test code = CO2) 25 24-32 [facility]2018-12-19 10:35:00 Test Item Value Reference Range Interpretation Comments BUN (test code = BUN) 9 7-22 [facility]2018-12-19 10:35:00 Test Item Value Reference Range Interpretation Comments Albumin Lvl (test code = Albumin Lvl) 2.1 3.5-5.0 [facility]2018-12-19 10:35:00 Test Item Value Reference Range Interpretation Comments Chloride Lvl (test code = Chloride Lvl) 111 95-109 [facility]2018-12-19 10:35:00 Test Item Value Reference Range Interpretation Comments Sodium Lvl (test code = Sodium Lvl) 144 135-145 [facility]2018-12-19 10:35:00 Test Item Value Reference Range Interpretation Comments Potassium Lvl (test code = Potassium 3.6 3.5-5.1 Lvl) [facility]2018-12-19 10:35:00 Test Item Value Reference Range Interpretation Comments AGAP (test code = AGAP) 11.6 10.0-20.0 [facility] CenterFffnjwqCUOEGCORYD8227-33-63 10:35:00 Test Item Value Reference Range Interpretation Comments Hgb (test code = Hgb) 9.0 14.0-18.0 [facility] CenterNgxuwrwKZXWSGHFHL6513-17-45 10:35:00 Test Item Value Reference Range Interpretation Comments RBC (test code = RBC) 3.53 4.70-6.10 [facility] CenterMdqknpiWZOXWUGCVJ1699-18-00 10:35:00 Test Item Value Reference Range Interpretation Comments MCV (test code = MCV) 81.1 80.0-94.0 [place] [address]-12-19 10:35:00 Test Item Value Reference Range Interpretation Comments Hct (test code = Hct) 28.6 42.0-54.0 [place] 706798-12-19 10:35:00 Test Item Value Reference Range Interpretation Comments WBC (test code = WBC) 6.9 3.7-10.4 [place] 706798-12-19 10:35:00 Test Item Value Reference Range Interpretation Comments MPV (test code = MPV) 7.8 7.4-10.4 [facility] CenterBgzclwcRJWCMCSGGG4737-81-99 10:35:00 Test Item Value Reference Range Interpretation Comments Platelet (test code = Platelet) 294 133-450 [facility] CenterOqufsgvVRCMQHODPI0821-45-92 10:35:00 Test Item Value Reference Range Interpretation Comments RDW (test code = RDW) 17.5 11.5-14.5 [facility] CenterZdmhtriGVLHKMMPJU8920-59-72 10:35:00 Test Item Value Reference Range Interpretation Comments MCHC (test code = MCHC) 31.7 32.0-36.0 [facility] CenterYstddhpOAOUWJJGNK3716-26-24 10:35:00 Test Item Value Reference Range Interpretation Comments MCH (test code = MCH) 25.7 pg 27.0-31.0 [facility] CenterGnpsklaQRINKXPKYI6118-62-24 10:35:00 Test Item Value Reference Range Interpretation Comments Lymphocytes (test code = Lymphocytes) 18.5 20.0-40.0 [facility] CenterYqzomnuQBEPBHFBTH5247-38-66 10:35:00 Test Item Value Reference Range Interpretation Comments Segs (test code = Segs) 67.0 45.0-75.0 [facility] CenterOttjszrUPIDNZWZEE0809-78-26 10:35:00 Test Item Value Reference Range Interpretation Comments Monocytes (test code = Monocytes) 9.8 2.0-12.0 [facility] CenterSvprcnrFHTSSGRKIF0391-85-85 10:35:00 Test Item Value Reference Range Interpretation Comments Basophils (test code = 1.0 See_Comment [Aut omated message] The Basophils) system which ge nerated this result tra nsmitted reference range : <=1.0. The reference r ondina was not used to int erpret this result as normal/abnormal . [facility] CenterSmxjskhOUILZBZCNF7407-29-31 10:35:00 Test Item Value Reference Range Interpretation Comments Eosinophils (test code = 3.7 See_Comment [A utomated message] The Eosinophils) system which ge nerated this result tra nsmitted reference range : <=4.0. The reference r ondina was not used to int erpret this result as normal/abnormal . [facility] CenterEossegdIVALGOVJBD9113-38-22 10:35:00 Test Item Value Reference Range Interpretation Comments Monocytes # (test code 0.7 See_Comment [Aut omated message] The = Monocytes #) system which generated this result tra nsmitted reference range : <=0.8. The reference r ondina was not used to int erpret this result as normal/abnormal . [facility] CenterWkrkgeyTCPKELAWJI3190-66-77 10:35:00 Test Item Value Reference Range Interpretation Comments Lymphocytes # (test code = Lymphocytes 1.3 1.0-5.5 #) [facility] CenterUbpaocsWWNFNWDVZE8812-91-68 10:35:00 Test Item Value Reference Range Interpretation Comments Neutrophils # (test code = Neutrophils 4.6 1.5-8.1 #) [facility] CenterNjdiuvjSSGFMUZFCT9815-55-02 10:35:00 Test Item Value Reference Range Interpretation Comments Basophils # (test code 0.1 See_Comment [Aut omated message] The = Basophils #) system which generated this result tra nsmitted reference range : <=0.2. The reference r ondina was not used to int erpret this result as normal/abnormal . [facility] CenterYffahpkIVZQAXQSYP0358-44-79 10:35:00 Test Item Value Reference Range Interpretation Comments Eosinophils # (test code 0.3 See_Comment [A utomated message] The = Eosinophils #) system whic h generated this result tra nsmitted reference range : <=0.5. The reference r ondina was not used to int erpret this result as normal/abnormal . [place] 183488-12-19 10:35:00 Test Item Value Reference Range Interpretation Comments Vanco Tr (test code = Vanco Tr) 21.8 [place] [id number] 10:35:00 Test Item Value Reference Range Interpretation Comments Vanco Tr TND (test code = Vanco Tr 0500 [address]) [facility]2018-12-19 10:35:00 Test Item Value Reference Range Interpretation Comments Calcium Lvl (test code = Calcium Lvl) 7.8 8.5-10.5 [facility]2018-12-19 10:35:00 Test Item Value Reference Range Interpretation Comments eGFR (test code = eGFR) 112 [facility]2018-12-19 10:35:00 Test Item Value Reference Range Interpretation Comments Creatinine Lvl (test code = Creatinine 0.56 0.50-1.40 Lvl) [facility]2018-12-19 10:35:00 Test Item Value Reference Range Interpretation Comments Phosphorus (test code = Phosphorus) 2.9 2.5-4.5 [facility]2018-12-19 10:35:00 Test Item Value Reference Range Interpretation Comments Glucose Lvl (test code = Glucose Lvl) 89 70-99 [facility]2018-12-19 10:35:00 Test Item Value Reference Range Interpretation Comments CO2 (test code = CO2) 25 24-32 [facility]2018-12-19 10:35:00 Test Item Value Reference Range Interpretation Comments BUN (test code = BUN) 9 7-22 [facility]2018-12-19 10:35:00 Test Item Value Reference Range Interpretation Comments Albumin Lvl (test code = Albumin Lvl) 2.1 3.5-5.0 [facility]2018-12-19 10:35:00 Test Item Value Reference Range Interpretation Comments Chloride Lvl (test code = Chloride Lvl) 111 95-109 [facility]2018-12-19 10:35:00 Test Item Value Reference Range Interpretation Comments Sodium Lvl (test code = Sodium Lvl) 144 135-145 [facility]2018-12-19 10:35:00 Test Item Value Reference Range Interpretation Comments Potassium Lvl (test code = Potassium 3.6 3.5-5.1 Lvl) [facility]2018-12-19 10:35:00 Test Item Value Reference Range Interpretation Comments AGAP (test code = AGAP) 11.6 10.0-20.0 [facility] CenterRjostloSHIOGTJTWJ2285-64-52 10:35:00 Test Item Value Reference Range Interpretation Comments Hgb (test code = Hgb) 9.0 14.0-18.0 [place] 706798-12-19 10:35:00 Test Item Value Reference Range Interpretation Comments RBC (test code = RBC) 3.53 4.70-6.10 [facility] CenterTzrtfhnLJKQQIRJZT3813-38-39 10:35:00 Test Item Value Reference Range Interpretation Comments MCV (test code = MCV) 81.1 80.0-94.0 [facility] CenterObbbnkbVKPPKWIAZF2490-74-16 10:35:00 Test Item Value Reference Range Interpretation Comments Hct (test code = Hct) 28.6 42.0-54.0 [address]12-19 10:35:00 Test Item Value Reference Range Interpretation Comments WBC (test code = WBC) 6.9 3.7-10.4 [facility] CenterIdwzriuLZTLNCXYSJ9562-25-82 10:35:00 Test Item Value Reference Range Interpretation Comments MPV (test code = MPV) 7.8 7.4-10.4 [facility] CenterPayuccoUMIYEABATC4347-36-85 10:35:00 Test Item Value Reference Range Interpretation Comments Platelet (test code = Platelet) 294 133-450 [facility] CenterYkznzhtFBREZFQNZO8258-08-77 10:35:00 Test Item Value Reference Range Interpretation Comments RDW (test code = RDW) 17.5 11.5-14.5 [facility] CenterWwnuemnFCNUVYDUUY0002-94-67 10:35:00 Test Item Value Reference Range Interpretation Comments MCHC (test code = MCHC) 31.7 32.0-36.0 [facility] CenterSdkczlfWVQMBIQRIJ8020-61-07 10:35:00 Test Item Value Reference Range Interpretation Comments MCH (test code = MCH) 25.7 pg 27.0-31.0 [facility] CenterVeuiytpRMXSYBTCPQ6461-30-08 10:35:00 Test Item Value Reference Range Interpretation Comments Lymphocytes (test code = Lymphocytes) 18.5 20.0-40.0 [facility] CenterGljfmrhANMENCRMLM5028-16-80 10:35:00 Test Item Value Reference Range Interpretation Comments Segs (test code = Segs) 67.0 45.0-75.0 [facility] CenterHoenhbyQOXEOOOYFZ4458-71-25 10:35:00 Test Item Value Reference Range Interpretation Comments Monocytes (test code = Monocytes) 9.8 2.0-12.0 [facility] CenterRcypfyqFUPEAWPIUG3397-62-78 10:35:00 Test Item Value Reference Range Interpretation Comments Basophils (test code = Basophils) 1.0 <=1.0 [facility] CenterNlglfqoBTMRFZBYRA4679-73-82 10:35:00 Test Item Value Reference Range Interpretation Comments Eosinophils (test code = Eosinophils) 3.7 <=4.0 [facility] CenterJfipdvwWAMOPFHPCO3210-96-69 10:35:00 Test Item Value Reference Range Interpretation Comments Monocytes # (test code = Monocytes #) 0.7 <=0.8 [facility] CenterCpakzgoCSPBLQDADK1305-55-46 10:35:00 Test Item Value Reference Range Interpretation Comments Lymphocytes # (test code = Lymphocytes 1.3 1.0-5.5 #) [facility] CenterSgvubukRHWARTLDSS3203-32-93 10:35:00 Test Item Value Reference Range Interpretation Comments Neutrophils # (test code = Neutrophils 4.6 1.5-8.1 #) [facility] CenterLoxgywsMCUJQRUQIY9611-43-47 10:35:00 Test Item Value Reference Range Interpretation Comments Basophils # (test code = Basophils #) 0.1 <=0.2 [facility] CenterCpvwuqjGZZWPHOQVH4147-28-97 10:35:00 Test Item Value Reference Range Interpretation Comments Eosinophils # (test code = Eosinophils 0.3 <=0.5 #) [facility] CenterHupruslXBJYXSFUGD5404-06-38 10:35:00 Test Item Value Reference Range Interpretation Comments Vanco Tr (test code = Vanco Tr) 21.8 [place] [id number] 10:35:00 Test Item Value Reference Range Interpretation Comments Vanco Tr TND (test code = Vanco Tr 0500 1 TND) [facility]ouvZTJSCXJWOSSL2726-81-88 10:29:00 Test Item Value Reference Range Interpretation Comments AGAP (test code = AGAP) 11.4 10.0-20.0 [facility]HnuurksNFNHCAHRKDTL0107-30-37 10:29:00 Test Item Value Reference Range Interpretation Comments Chloride Lvl (test code = Chloride Lvl) 111 95-109 [facility]OfekgptQNQVFHIIGWWI4626-24-39 10:29:00 Test Item Value Reference Range Interpretation Comments Sodium Lvl (test code = Sodium Lvl) 144 135-145 [facility]KqwhbcwAYBTFMEXJMMD0772-76-16 10:29:00 Test Item Value Reference Range Interpretation Comments Potassium Lvl (test code = Potassium 3.4 3.5-5.1 Lvl) [facility] MichiganThabsieUPJDJZTLRAMK4672-67-94 10:29:00 Test Item Value Reference Range Interpretation Comments Calcium Lvl (test code = Calcium Lvl) 7.6 8.5-10.5 [facility]ExboqklDNAKOLLXLFTC7492-26-85 10:29:00 Test Item Value Reference Range Interpretation Comments Glucose Lvl (test code = Glucose Lvl) 85 70-99 [facility] MichiganDuvirpfVRHPTKRJOMUF6499-26-17 10:29:00 Test Item Value Reference Range Interpretation Comments eGFR (test code = eGFR) 114 [facility]KdqoiigYFPSKQCHURCX2959-26-57 10:29:00 Test Item Value Reference Range Interpretation Comments Creatinine Lvl (test code = Creatinine 0.54 0.50-1.40 Lvl) [facility]CaxlcqdPVKGAVULGYDE5890-78-24 10:29:00 Test Item Value Reference Range Interpretation Comments BUN (test code = BUN) 8 7-22 [facility]MqorshbZATNWRTBMPBZ2697-34-88 10:29:00 Test Item Value Reference Range Interpretation Comments CO2 (test code = CO2) 25 24-32 [facility] CenterHgysnmzDGQZSSOCLG5392-32-11 10:29:00 Test Item Value Reference Range Interpretation Comments Platelet (test code = Platelet) 275 133-450 [facility] CenterEcieaykXDVBKYBMJW8029-79-40 10:29:00 Test Item Value Reference Range Interpretation Comments RDW (test code = RDW) 17.0 11.5-14.5 [facility] CenterHxugqdkUOEAAQUNQP0435-89-27 10:29:00 Test Item Value Reference Range Interpretation Comments MCHC (test code = MCHC) 32.4 32.0-36.0 [facility] CenterXgrnumcDGEOVZOMYL8042-99-58 10:29:00 Test Item Value Reference Range Interpretation Comments MCH (test code = MCH) 26.1 pg 27.0-31.0 [facility] CenterHwjtkzpYAZPJPNSUN2130-37-63 10:29:00 Test Item Value Reference Range Interpretation Comments MCV (test code = MCV) 80.5 80.0-94.0 [facility] CenterMljwjnkBQHEAIRPYY5781-68-48 10:29:00 Test Item Value Reference Range Interpretation Comments Hct (test code = Hct) 27.5 42.0-54.0 [facility] CenterAsoquboUWUHKOLOJL7245-84-32 10:29:00 Test Item Value Reference Range Interpretation Comments RBC (test code = RBC) 3.42 4.70-6.10 [facility] CenterRuvyxwtNJLHJYKJVE8629-93-10 10:29:00 Test Item Value Reference Range Interpretation Comments Hgb (test code = Hgb) 8.9 14.0-18.0 [facility] CenterKkbdmwmTPYVAYTDED0519-77-30 10:29:00 Test Item Value Reference Range Interpretation Comments WBC (test code = WBC) 6.9 3.7-10.4 [facility] CenterHgkjenaNSEYBRXMCA4872-76-61 10:29:00 Test Item Value Reference Range Interpretation Comments MPV (test code = MPV) 8.0 7.4-10.4 [facility] CenterIxbtullEMXSRUVYJQ2797-33-40 10:29:00 Test Item Value Reference Range Interpretation Comments Monocytes # (test code 0.7 See_Comment [Aut omated message] The = Monocytes #) system which generated this result tra nsmitted reference range : <=0.8. The reference r ondina was not used to int erpret this result as normal/abnormal . [facility] CenterYhjdmbcVRGLDFTSZF1446-57-96 10:29:00 Test Item Value Reference Range Interpretation Comments Lymphocytes # (test code = Lymphocytes 1.6 1.0-5.5 #) [facility] CenterHdpmtqjRVJRKADDIR7452-18-79 10:29:00 Test Item Value Reference Range Interpretation Comments Eosinophils # (test code 0.3 See_Comment [A utomated message] The = Eosinophils #) system [facility] h generated this result tra nsmitted reference range : <=0.5. The reference r ondina was not used to int erpret this result as normal/abnormal . [facility] CenterIjrerwxATHBUSDPEN2343-24-07 10:29:00 Test Item Value Reference Range Interpretation Comments Lymphocytes (test code = Lymphocytes) 23.6 20.0-40.0 [facility] CenterSlxoyeuSQYARLQHER1526-23-47 10:29:00 Test Item Value Reference Range Interpretation Comments Monocytes (test code = Monocytes) 10.1 2.0-12.0 [facility] CenterRdqltlrIHQONBXWTW0543-10-93 10:29:00 Test Item Value Reference Range Interpretation Comments Eosinophils (test code = 3.9 See_Comment [A utomated message] The Eosinophils) system which ge nerated this result tra nsmitted reference range : <=4.0. The reference r ondina was not used to int erpret this result as normal/abnormal . [facility] CenterYeroqdeYGWSSSEIWY2237-59-56 10:29:00 Test Item Value Reference Range Interpretation Comments Basophils (test code = 0.7 See_Comment [Aut omated message] The Basophils) system which ge nerated this result tra nsmitted reference range : <=1.0. The reference r ondina was not used to int erpret this result as normal/abnormal . [facility] CenterZkxqdacQPZQAJDRJW4957-58-14 10:29:00 Test Item Value Reference Range Interpretation Comments Neutrophils # (test code = Neutrophils 4.2 1.5-8.1 #) [facility] CenterCnpjybmLCFFDGLNTX9554-20-36 10:29:00 Test Item Value Reference Range Interpretation Comments Segs (test code = Segs) 61.7 45.0-75.0 [facility]EjxvzvvRNTQNTEUYWEB3604-14-19 10:29:00 Test Item Value Reference Range Interpretation Comments AGAP (test code = AGAP) 11.4 10.0-20.0 [facility]TxpdmkoYZWYHFDTFOWJ2210-41-52 10:29:00 Test Item Value Reference Range Interpretation Comments Chloride Lvl (test code = Chloride Lvl) 111 95-109 [facility]NnlbrcnQJGHJMCBNRGM3904-19-20 10:29:00 Test Item Value Reference Range Interpretation Comments Sodium Lvl (test code = Sodium Lvl) 144 135-145 [facility]ColvcyhQYRGIQGNXXIG7879-92-99 10:29:00 Test Item Value Reference Range Interpretation Comments Potassium Lvl (test code = Potassium 3.4 3.5-5.1 Lvl) [facility]SqntgkmSMKHORDVKNBA1288-45-18 10:29:00 Test Item Value Reference Range Interpretation Comments Calcium Lvl (test code = Calcium Lvl) 7.6 8.5-10.5 [facility]HzvlemoHBMUBZVNNAIZ4118-74-59 10:29:00 Test Item Value Reference Range Interpretation Comments Glucose Lvl (test code = Glucose Lvl) 85 70-99 [facility]KnsrjqtLVQCTUHHGTMH2396-85-05 10:29:00 Test Item Value Reference Range Interpretation Comments eGFR (test code = eGFR) 114 [facility]HhlngarNTBVQBMFTATV5167-06-74 10:29:00 Test Item Value Reference Range Interpretation Comments Creatinine Lvl (test code = Creatinine 0.54 0.50-1.40 Lvl) [facility]YyhuedcKXTWAGWRRSRW8033-47-04 10:29:00 Test Item Value Reference Range Interpretation Comments BUN (test code = BUN) 8 7-22 [facility]VjwvtjlRHLCXSRODLGJ6312-41-85 10:29:00 Test Item Value Reference Range Interpretation Comments CO2 (test code = CO2) 25 24-32 [facility] CenterIzxqrfgZHCHYRKRQJ7766-61-32 10:29:00 Test Item Value Reference Range Interpretation Comments Platelet (test code = Platelet) 275 133-450 [facility] CenterKaxqlnuFHTVRJHUKD9041-36-79 10:29:00 Test Item Value Reference Range Interpretation Comments RDW (test code = RDW) 17.0 11.5-14.5 [facility] CenterFxxtblmGJQBTWRGDN6656-09-44 10:29:00 Test Item Value Reference Range Interpretation Comments MCHC (test code = MCHC) 32.4 32.0-36.0 [facility] CenterAlxsjebGSPHIKAGDO2380-43-00 10:29:00 Test Item Value Reference Range Interpretation Comments MCH (test code = MCH) 26.1 pg 27.0-31.0 [facility] CenterNhjnavhENFOYUZGLC6726-38-42 10:29:00 Test Item Value Reference Range Interpretation Comments MCV (test code = MCV) 80.5 80.0-94.0 [facility] CenterDozgdfrHTNUTSHKPE3827-81-89 10:29:00 Test Item Value Reference Range Interpretation Comments Hct (test code = Hct) 27.5 42.0-54.0 [facility] CenterIlvdjhkETAOTZOITB2377-53-09 10:29:00 Test Item Value Reference Range Interpretation Comments RBC (test code = RBC) 3.42 4.70-6.10 [facility] CenterOjxwtzmQQMDQPEWQV4278-04-02 10:29:00 Test Item Value Reference Range Interpretation Comments Hgb (test code = Hgb) 8.9 14.0-18.0 [facility] CenterEmqmuxoHZQEFRZXJU6476-99-96 10:29:00 Test Item Value Reference Range Interpretation Comments WBC (test code = WBC) 6.9 3.7-10.4 [facility] CenterPadluuuWHEJIBACVJ4041-04-02 10:29:00 Test Item Value Reference Range Interpretation Comments MPV (test code = MPV) 8.0 7.4-10.4 [facility] CenterGlrfpurSJVWPIYLQP2554-53-44 10:29:00 Test Item Value Reference Range Interpretation Comments Monocytes # (test code 0.7 See_Comment [Aut omated message] The = Monocytes #) system which generated this result tra nsmitted reference range : <=0.8. The reference r ondina was not used to int erpret this result as normal/abnormal . [facility] CenterPlvzmmiFVXHMWVFHT9743-92-09 10:29:00 Test Item Value Reference Range Interpretation Comments Lymphocytes # (test code = Lymphocytes 1.6 1.0-5.5 #) [facility] CenterNkbhlgsUGTOKSEURT0296-40-89 10:29:00 Test Item Value Reference Range Interpretation Comments Eosinophils # (test code 0.3 See_Comment [A utomated message] The = Eosinophils #) system whic h generated this result tra nsmitted reference range : <=0.5. The reference r ondian was not used to int erpret this result as normal/abnormal . [facility] CenterEwzvwvcKBIIIPDKEZ2624-52-31 10:29:00 Test Item Value Reference Range Interpretation Comments Lymphocytes (test code = Lymphocytes) 23.6 20.0-40.0 [facility] CenterThtwrroCCQNFOGZMF2970-09-18 10:29:00 Test Item Value Reference Range Interpretation Comments Monocytes (test code = Monocytes) 10.1 2.0-12.0 [facility] CenterLqqflwqLSNYCRNBDT9630-11-51 10:29:00 Test Item Value Reference Range Interpretation Comments Eosinophils (test code = 3.9 See_Comment [A utomated message] The Eosinophils) system which ge nerated this result tra nsmitted reference range : <=4.0. The reference r ondina was not used to int erpret this result as normal/abnormal . [facility] CenterEmskbwgASMWQQRHFU8553-16-48 10:29:00 Test Item Value Reference Range Interpretation Comments Basophils (test code = 0.7 See_Comment [Aut omated message] The Basophils) system which ge nerated this result tra nsmitted reference range : <=1.0. The reference r ondina was not used to int erpret this result as normal/abnormal . [facility] CenterOdgzcqpARPILCDRTG4424-10-19 10:29:00 Test Item Value Reference Range Interpretation Comments Neutrophils # (test code = Neutrophils 4.2 1.5-8.1 #) [facility] CenterPvgjzkoQMHXBKWESX8363-74-85 10:29:00 Test Item Value Reference Range Interpretation Comments Segs (test code = Segs) 61.7 45.0-75.0 [facility]KwdfoodXGANQHYCSIJQ2894-09-81 10:29:00 Test Item Value Reference Range Interpretation Comments AGAP (test code = AGAP) 11.4 10.0-20.0 [facility]XxzholkGMZDGHPNJEHW5891-31-82 10:29:00 Test Item Value Reference Range Interpretation Comments Chloride Lvl (test code = Chloride Lvl) 111 95-109 [facility]StzhhgeKZDOAEZGPOXA8086-56-51 10:29:00 Test Item Value Reference Range Interpretation Comments Sodium Lvl (test code = Sodium Lvl) 144 135-145 [facility]PliwyuoIPZCQNPWGFWC6713-22-49 10:29:00 Test Item Value Reference Range Interpretation Comments Potassium Lvl (test code = Potassium 3.4 3.5-5.1 Lvl) [facility]YpjzyxnLWIHTFYTLOLD8973-57-65 10:29:00 Test Item Value Reference Range Interpretation Comments Calcium Lvl (test code = Calcium Lvl) 7.6 8.5-10.5 [facility]VliflrxQIKKAWZLFBXW3603-35-88 10:29:00 Test Item Value Reference Range Interpretation Comments Glucose Lvl (test code = Glucose Lvl) 85 70-99 [facility]GjbpkrwXGLHITCDLCMG6792-45-35 10:29:00 Test Item Value Reference Range Interpretation Comments eGFR (test code = eGFR) 114 [facility]MhzlfsvFRPFKFHIEEKV6505-78-96 10:29:00 Test Item Value Reference Range Interpretation Comments Creatinine Lvl (test code = Creatinine 0.54 0.50-1.40 Lvl) [facility]WdmhvsfBPISRBOSOYCS7090-15-53 10:29:00 Test Item Value Reference Range Interpretation Comments BUN (test code = BUN) 8 7-22 [facility]GldyuneWUMDFUKKKBHX5278-66-72 10:29:00 Test Item Value Reference Range Interpretation Comments CO2 (test code = CO2) 25 24-32 [facility] CenterFspdnljTUEPVXWMZY4394-39-68 10:29:00 Test Item Value Reference Range Interpretation Comments Platelet (test code = Platelet) 275 133-450 [facility] CenterIqbsqorLBMUCGWKMI3312-42-92 10:29:00 Test Item Value Reference Range Interpretation Comments RDW (test code = RDW) 17.0 11.5-14.5 [facility] CenterQrcxxngICYQOHTQZJ3374-61-03 10:29:00 Test Item Value Reference Range Interpretation Comments MCHC (test code = MCHC) 32.4 32.0-36.0 [facility] CenterLrlkmnjGFBWCXBHZP9497-81-88 10:29:00 Test Item Value Reference Range Interpretation Comments MCH (test code = MCH) 26.1 pg 27.0-31.0 [facility] CenterYawusirVYMCMNPSKY5543-43-36 10:29:00 Test Item Value Reference Range Interpretation Comments MCV (test code = MCV) 80.5 80.0-94.0 [facility] CenterAxrvttiEGCGSCTWRM9956-56-17 10:29:00 Test Item Value Reference Range Interpretation Comments Hct (test code = Hct) 27.5 42.0-54.0 [facility] CenterIacuqosIMJLSXPPPU6985-80-46 10:29:00 Test Item Value Reference Range Interpretation Comments RBC (test code = RBC) 3.42 4.70-6.10 [facility] CenterHwdzbnrZZZOXJBROZ3578-29-44 10:29:00 Test Item Value Reference Range Interpretation Comments Hgb (test code = Hgb) 8.9 14.0-18.0 [facility] CenterYgvmjxvOEXXEEXQCS1773-32-12 10:29:00 Test Item Value Reference Range Interpretation Comments WBC (test code = WBC) 6.9 3.7-10.4 [facility] CenterWonuwyfXJGMGZVLST1558-57-20 10:29:00 Test Item Value Reference Range Interpretation Comments MPV (test code = MPV) 8.0 7.4-10.4 [facility] CenterIwgmndoZGMELBUVQZ4625-46-46 10:29:00 Test Item Value Reference Range Interpretation Comments Monocytes # (test code 0.7 See_Comment [Aut omated message] The = Monocytes #) system which generated this result tra nsmitted reference range : <=0.8. The reference r ondina was not used to int erpret this result as normal/abnormal . [facility] CenterAvhefqsECMNMEGDDW1829-25-34 10:29:00 Test Item Value Reference Range Interpretation Comments Lymphocytes # (test code = Lymphocytes 1.6 1.0-5.5 #) [facility] CenterFcvpriqFEOVBHQQGR6181-59-34 10:29:00 Test Item Value Reference Range Interpretation Comments Eosinophils # (test code 0.3 See_Comment [A utomated message] The = Eosinophils #) system whic h generated this result tra nsmitted reference range : <=0.5. The reference r ondina was not used to int erpret this result as normal/abnormal . [facility] CenterElvtmgxAZVZFQOMGB9875-02-21 10:29:00 Test Item Value Reference Range Interpretation Comments Lymphocytes (test code = Lymphocytes) 23.6 20.0-40.0 [facility] CenterMvkimpdGNRWQRPWVF6753-07-49 10:29:00 Test Item Value Reference Range Interpretation Comments Monocytes (test code = Monocytes) 10.1 2.0-12.0 [facility] CenterSqbzlioOVPJSONSUU4267-23-65 10:29:00 Test Item Value Reference Range Interpretation Comments Eosinophils (test code = 3.9 See_Comment [A utomated message] The Eosinophils) system which ge nerated this result tra nsmitted reference range : <=4.0. The reference r ondina was not used to int erpret this result as normal/abnormal . [facility] CenterWlghxenRALFKVHRLT6337-99-16 10:29:00 Test Item Value Reference Range Interpretation Comments Basophils (test code = 0.7 See_Comment [Aut omated message] The Basophils) system which ge nerated this result tra nsmitted reference range : <=1.0. The reference r ondina was not used to int erpret this result as normal/abnormal . [facility] CenterZfyycsfUFXRLZHOEQ7652-87-99 10:29:00 Test Item Value Reference Range Interpretation Comments Neutrophils # (test code = Neutrophils 4.2 1.5-8.1 #) [facility] CenterZndmqbxZWVFWYTEHO1989-28-30 10:29:00 Test Item Value Reference Range Interpretation Comments Segs (test code = Segs) 61.7 45.0-75.0 [facility]SfegsopOUWDJRDWSDBM5520-39-59 10:29:00 Test Item Value Reference Range Interpretation Comments AGAP (test code = AGAP) 11.4 10.0-20.0 [facility]EtfcrhoGFGHVWJVYIBQ9634-08-64 10:29:00 Test Item Value Reference Range Interpretation Comments Chloride Lvl (test code = Chloride Lvl) 111 95-109 [facility]WcyodmtNVFNKVMYFOSI9076-15-12 10:29:00 Test Item Value Reference Range Interpretation Comments Sodium Lvl (test code = Sodium Lvl) 144 135-145 [facility]QkpccwhFRABLTXAFMLD4173-18-00 10:29:00 Test Item Value Reference Range Interpretation Comments Potassium Lvl (test code = Potassium 3.4 3.5-5.1 Lvl) [facility]TjszdnjJQXLAAOSSESK6922-59-85 10:29:00 Test Item Value Reference Range Interpretation Comments Calcium Lvl (test code = Calcium Lvl) 7.6 8.5-10.5 [facility]RawpoorJLRKKMNJPRBM8642-15-15 10:29:00 Test Item Value Reference Range Interpretation Comments Glucose Lvl (test code = Glucose Lvl) 85 70-99 [facility]XvrydnuHEEOQQPJPJTV1297-32-30 10:29:00 Test Item Value Reference Range Interpretation Comments eGFR (test code = eGFR) 114 [facility]PgltctlVDAYOWENZHOO1800-76-49 10:29:00 Test Item Value Reference Range Interpretation Comments Creatinine Lvl (test code = Creatinine 0.54 0.50-1.40 Lvl) [facility] MichiganExokuucHACAJFUOYGDK9450-61-89 10:29:00 Test Item Value Reference Range Interpretation Comments BUN (test code = BUN) 8 7-22 [facility]UwofgbwVRFLOQGBPHQP4994-95-47 10:29:00 Test Item Value Reference Range Interpretation Comments CO2 (test code = CO2) 25 24-32 [facility] CenterNomwoqoYDGOSIEGSM5549-48-76 10:29:00 Test Item Value Reference Range Interpretation Comments Platelet (test code = Platelet) 275 133-450 [facility] CenterDfpxweqDOLUTQFQLO7843-69-11 10:29:00 Test Item Value Reference Range Interpretation Comments RDW (test code = RDW) 17.0 11.5-14.5 [facility] CenterOoyolxbSUZEKUCUCU6635-98-06 10:29:00 Test Item Value Reference Range Interpretation Comments MCHC (test code = MCHC) 32.4 32.0-36.0 [facility] CenterSibsagbWAZXZYGWNB2095-99-40 10:29:00 Test Item Value Reference Range Interpretation Comments MCH (test code = MCH) 26.1 pg 27.0-31.0 [facility] CenterFmvgvhmQCOZCVEIUW8291-12-46 10:29:00 Test Item Value Reference Range Interpretation Comments MCV (test code = MCV) 80.5 80.0-94.0 [facility] CenterZpzxenbZUNUDTRPIJ8211-88-66 10:29:00 Test Item Value Reference Range Interpretation Comments Hct (test code = Hct) 27.5 42.0-54.0 [facility] CenterBmzxfqvYQQZBPLMES0072-50-27 10:29:00 Test Item Value Reference Range Interpretation Comments RBC (test code = RBC) 3.42 4.70-6.10 [facility] CenterRdbjirfXUWXVAPJXD7106-14-77 10:29:00 Test Item Value Reference Range Interpretation Comments Hgb (test code = Hgb) 8.9 14.0-18.0 [facility] CenterDvlxxzaWDTQLDPAGB1657-66-06 10:29:00 Test Item Value Reference Range Interpretation Comments WBC (test code = WBC) 6.9 3.7-10.4 [facility] CenterOsvddgxBNOAVGXNIV3127-44-99 10:29:00 Test Item Value Reference Range Interpretation Comments MPV (test code = MPV) 8.0 7.4-10.4 [facility] CenterMnjzxnmKABKZDFYKC5014-17-59 10:29:00 Test Item Value Reference Range Interpretation Comments Monocytes # (test code 0.7 See_Comment [Aut omated message] The = Monocytes #) system which generated this result tra nsmitted reference range : <=0.8. The reference r ondina was not used to int erpret this result as normal/abnormal . [facility] CenterLmojustSLTEKBXDJU1467-11-93 10:29:00 Test Item Value Reference Range Interpretation Comments Lymphocytes # (test code = Lymphocytes 1.6 1.0-5.5 #) [facility] CenterEdbyinwXNEVDQOMMK0547-86-53 10:29:00 Test Item Value Reference Range Interpretation Comments Eosinophils # (test code 0.3 See_Comment [A utomated message] The = Eosinophils #) system wh h generated this result tra nsmitted reference range : <=0.5. The reference r ondina was not used to int erpret this result as normal/abnormal . [facility] CenterFdiaxjxTLENTZGBMA9429-23-75 10:29:00 Test Item Value Reference Range Interpretation Comments Lymphocytes (test code = Lymphocytes) 23.6 20.0-40.0 [facility] CenterWzioihoBLWTUXAQWR9991-74-93 10:29:00 Test Item Value Reference Range Interpretation Comments Monocytes (test code = Monocytes) 10.1 2.0-12.0 [facility] CenterUeelajuABWRJZXBHG5688-62-87 10:29:00 Test Item Value Reference Range Interpretation Comments Eosinophils (test code = 3.9 See_Comment [A utomated message] The Eosinophils) system which ge nerated this result tra nsmitted reference range : <=4.0. The reference r ondina was not used to int erpret this result as normal/abnormal . [facility] CenterTztkvedOBGLUQAULJ9107-53-09 10:29:00 Test Item Value Reference Range Interpretation Comments Basophils (test code = 0.7 See_Comment [Aut omated message] The Basophils) system which ge nerated this result tra nsmitted reference range : <=1.0. The reference r ondina was not used to int erpret this result as normal/abnormal . [facility] CenterQrqqyyvBOWDERPKZF2015-88-23 10:29:00 Test Item Value Reference Range Interpretation Comments Neutrophils # (test code = Neutrophils 4.2 1.5-8.1 #) [facility] CenterYovnhwcGSZYBFMSJN0991-42-93 10:29:00 Test Item Value Reference Range Interpretation Comments Segs (test code = Segs) 61.7 45.0-75.0 [facility]TxowjzhISXSTHNXSWOS2296-98-33 10:29:00 Test Item Value Reference Range Interpretation Comments AGAP (test code = AGAP) 11.4 10.0-20.0 [facility]LlqbojeLIOUSMEHQHPK4468-50-18 10:29:00 Test Item Value Reference Range Interpretation Comments Chloride Lvl (test code = Chloride Lvl) 111 95-109 [facility] MichiganSezvpelEOHRIBKFYLCB1712-06-92 10:29:00 Test Item Value Reference Range Interpretation Comments Sodium Lvl (test code = Sodium Lvl) 144 135-145 [facility]ObkjrqySUKEJLKYDKMF9072-58-29 10:29:00 Test Item Value Reference Range Interpretation Comments Potassium Lvl (test code = Potassium 3.4 3.5-5.1 Lvl) [facility]YilvbotIIRPFASUOVKS6964-96-41 10:29:00 Test Item Value Reference Range Interpretation Comments Calcium Lvl (test code = Calcium Lvl) 7.6 8.5-10.5 [facility]RugrjopYBIXHXJLPZQB0578-93-15 10:29:00 Test Item Value Reference Range Interpretation Comments Glucose Lvl (test code = Glucose Lvl) 85 70-99 [facility]UtnftbkCNMQRFPRRDAV2016-20-10 10:29:00 Test Item Value Reference Range Interpretation Comments eGFR (test code = eGFR) 114 [facility]VejmamgCYUSBTXDJSPS7615-95-32 10:29:00 Test Item Value Reference Range Interpretation Comments Creatinine Lvl (test code = Creatinine 0.54 0.50-1.40 Lvl) [facility]XsadwefHBTMILBDCLJY2531-54-07 10:29:00 Test Item Value Reference Range Interpretation Comments BUN (test code = BUN) 8 7-22 [facility] MichiganSzzycusDTWBWZXDVRTM7245-16-55 10:29:00 Test Item Value Reference Range Interpretation Comments CO2 (test code = CO2) 25 24-32 [facility] CenterIwbtlooLBHXLAGXPG0474-03-28 10:29:00 Test Item Value Reference Range Interpretation Comments Platelet (test code = Platelet) 275 133-450 [facility] CenterUcyqdwuGPJFWABLMT4871-94-18 10:29:00 Test Item Value Reference Range Interpretation Comments RDW (test code = RDW) 17.0 11.5-14.5 [facility] CenterGqwoyseXXOLANITKB8770-70-15 10:29:00 Test Item Value Reference Range Interpretation Comments MCHC (test code = MCHC) 32.4 32.0-36.0 [facility] CenterPoeccpuLHAGNEWWFB7406-43-18 10:29:00 Test Item Value Reference Range Interpretation Comments MCH (test code = MCH) 26.1 pg 27.0-31.0 [facility] CenterHcfihgtUDDWLTOFNO1567-57-37 10:29:00 Test Item Value Reference Range Interpretation Comments MCV (test code = MCV) 80.5 80.0-94.0 [facility] CenterPieqcieNEMIKRLOEH2974-62-22 10:29:00 Test Item Value Reference Range Interpretation Comments Hct (test code = Hct) 27.5 42.0-54.0 [facility] CenterFvrvndlNBOMLLGEGJ1512-53-04 10:29:00 Test Item Value Reference Range Interpretation Comments RBC (test code = RBC) 3.42 4.70-6.10 [facility] CenterMpdrzrxPGVRLITOOR7061-69-87 10:29:00 Test Item Value Reference Range Interpretation Comments Hgb (test code = Hgb) 8.9 14.0-18.0 [facility] CenterXjfinzyHHETTHTVPA8149-71-73 10:29:00 Test Item Value Reference Range Interpretation Comments WBC (test code = WBC) 6.9 3.7-10.4 [facility] CenterLdfkwwoYKEGYSNMFX8383-07-71 10:29:00 Test Item Value Reference Range Interpretation Comments MPV (test code = MPV) 8.0 7.4-10.4 [facility] CenterOzwbjyrFAAUMGUNGD6763-14-56 10:29:00 Test Item Value Reference Range Interpretation Comments Monocytes # (test code = Monocytes #) 0.7 <=0.8 [facility] CenterKtbwqfcJHCIQREZNU4248-10-25 10:29:00 Test Item Value Reference Range Interpretation Comments Lymphocytes # (test code = Lymphocytes 1.6 1.0-5.5 #) [facility] CenterLjcxjkuDFKGHBKCKR3763-87-94 10:29:00 Test Item Value Reference Range Interpretation Comments Eosinophils # (test code = Eosinophils 0.3 <=0.5 #) [facility] CenterXkjtksoIVQPBRMSHX6794-07-60 10:29:00 Test Item Value Reference Range Interpretation Comments Lymphocytes (test code = Lymphocytes) 23.6 20.0-40.0 [facility] Cent[id number] 10:29:00 Test Item Value Reference Range Interpretation Comments Monocytes (test code = Monocytes) 10.1 2.0-12.0 [facility] CenterCyexgzvKYCPHACCGQ1363-00-76 10:29:00 Test Item Value Reference Range Interpretation Comments Eosinophils (test code = Eosinophils) 3.9 <=4.0 [facility] CenterWcmdjmzFBFVCQVWPB3208-62-89 10:29:00 Test Item Value Reference Range Interpretation Comments Basophils (test code = Basophils) 0.7 <=1.0 [facility] CenterTaehxrvMLEMUDUTHG5329-24-39 10:29:00 Test Item Value Reference Range Interpretation Comments Neutrophils # (test code = Neutrophils 4.2 1.5-8.1 #) [facility] CenterBdirmlnVWKKWMUYIR3726-06-98 10:29:00 Test Item Value Reference Range Interpretation Comments Segs (test code = Segs) 61.7 45.0-75.0 [facility] CenterGqtlyifPOUOWOMMHV1559-26-91 11:52:00 Test Item Value Reference Range Interpretation Comments Basophils # (test code 0.1 See_Comment [Aut omated message] The = Basophils #) system which generated this result tra nsmitted reference range : <=0.2. The reference r ondina was not used to int erpret this result as normal/abnormal . [facility] CenterEhjfbllYIVIYXHTHP7953-42-50 11:52:00 Test Item Value Reference Range Interpretation Comments Basophils # (test code 0.1 See_Comment [Aut omated message] The = Basophils #) system which generated this result tra nsmitted reference range : <=0.2. The reference r ondina was not used to int erpret this result as normal/abnormal . [facility] CenterThgugnxEFGKLXLQTU4161-82-42 11:52:00 Test Item Value Reference Range Interpretation Comments Basophils # (test code 0.1 See_Comment [Aut omated message] The = Basophils #) system which generated this result tra nsmitted reference range : <=0.2. The reference r ondina was not used to int erpret this result as normal/abnormal . [facility] CenterGvetyyuWEPTSJHJRH5205-38-51 11:52:00 Test Item Value Reference Range Interpretation Comments Basophils # (test code 0.1 See_Comment [Aut omated message] The = Basophils #) system which generated this result tra nsmitted reference range : <=0.2. The reference r ondina was not used to int erpret this result as normal/abnormal . [facility] CenterKwoewruHZYKMWTVPC4037-10-26 11:52:00 Test Item Value Reference Range Interpretation Comments Basophils # (test code = Basophils #) 0.1 <=0.2 [facility] [id number] 23:42:00 Test Item Value Reference Range Interpretation Comments MRSA by PCR (test Negative (02/16/18 5:42 code = MRSA by PCR) PM) [facility] [id number] 23:42:00 Test Item Value Reference Range Interpretation Comments MRSA by PCR (test Negative (02/16/18 5:42 code = MRSA by PCR) PM) [facility] [id number] 23:42:00 Test Item Value Reference Range Interpretation Comments MRSA by PCR (test Negative (02/16/18 5:42 code = MRSA by PCR) PM) [facility] [id number] 23:42:00 Test Item Value Reference Range Interpretation Comments MRSA by PCR (test Negative (02/16/18 5:42 code = MRSA by PCR) PM) [facility] [id number] 23:42:00 Test Item Value Reference Range Interpretation Comments MRSA by PCR (test Negative (02/16/18 5:42 code = MRSA by PCR) PM) [facility] CenterNznonfbKHNGLKSJWS6518-66-21 12:00:00 Test Item Value Reference Range Interpretation Comments Vanco Tr TND (test code = Vanco Tr 0530 1 TND) [facility]NtyrpjpZWIVJJPYDO1810-71-77 12:00:00 Test Item Value Reference Range Interpretation Comments Vanco Tr (test code = Vanco Tr) 6.7 [facility] HospitalFkeymafRZHJGUBEIV7436-16-14 12:00:00 Test Item Value Reference Range Interpretation Comments Vanco Tr TND (test code = Vanco Tr 0530 1 TND) [facility]DcwhcflVWMLUEYHOB5717-09-81 12:00:00 Test Item Value Reference Range Interpretation Comments Vanco Tr (test code = Vanco Tr) 6.7 [facility] HospitalSuslekrTUONZBLNER6493-65-40 12:00:00 Test Item Value Reference Range Interpretation Comments Vanco Tr TND (test code = Vanco Tr 0530 1 TND) [facility] HospitalGrwpjudBWHUEQNGQG1843-49-50 12:00:00 Test Item Value Reference Range Interpretation Comments Vanco Tr (test code = Vanco Tr) 6.7 [facility] HospitalOmcdjquABSDBVTOOK3508-38-19 12:00:00 Test Item Value Reference Range Interpretation Comments Vanco Tr TND (test code = Vanco Tr 0530 1 TND) [facility] HospitalVnviretCDNVKHLLGJ6823-69-31 12:00:00 Test Item Value Reference Range Interpretation Comments Vanco Tr (test code = Vanco Tr) 6.7 [facility] HospitalSvncpnyLDXXNTJJPZ2524-69-59 12:00:00 Test Item Value Reference Range Interpretation Comments Vanco Tr TND (test code = Vanco Tr 0530 1 TND) [facility] CenterAzwtbwyJVGRWSWQYV1434-95-04 12:00:00 Test Item Value Reference Range Interpretation Comments Vanco Tr (test code = Vanco Tr) 6.7 [facility]xt[facility]kMZSLNZJQTZ8130-07-06 22:11:00 Test Item Value Reference Range Interpretation Comments PTT (test code = PTT) 38.4 s 22.9-35.8 [facility]EhmcdpiAKMEVMSMIR0430-94-45 22:11:00 Test Item Value Reference Range Interpretation Comments PTT (test code = PTT) 38.4 s 22.9-35.8 [facility] MichiganPewldgjASFOMWTJGY0541-36-21 22:11:00 Test Item Value Reference Range Interpretation Comments PTT (test code = PTT) 38.4 s 22.9-35.8 [facility] HospitalKzwzcwrAGUIDVJQOW3302-81-16 22:11:00 Test Item Value Reference Range Interpretation Comments PTT (test code = PTT) 38.4 s 22.9-35.8 [facility] MichiganYmyczsyMISFLBCKYG8670-83-01 22:11:00 Test Item Value Reference Range Interpretation Comments PTT (test code = PTT) 38.4 s 22.9-35.8 [facility] HospitalCulture: Ojqykhsgl0505-10-11 22:47:00 Test Item Value Reference Range Interpretation Comments Culture: Anaerobic No Anaerobes Isolated (test code = Culture: Anaerobic) [facility] Stain Cddxvr1604-38-81 22:47:00 Test Item Value Reference Range Interpretation Comments Gram Stain Report Rare WBC's No Organisms (test code = Gram Seen Stain Report) [facility] HospitalannCulture: Aspirate/Body Fluid/Nrvwpe6048-50-21 22:47:00 Test Item Value Reference Range Interpretation Comments Culture: Aspirate/Body Fluid/Tissue No Growth (test code = Culture: Aspirate/Body Fluid/Tissue) [facility] HospitalannCulture: Gdsyxbzdv1180-93-70 22:47:00 Test Item Value Reference Range Interpretation Comments Culture: Anaerobic No Anaerobes Isolated (test code = Culture: Anaerobic) [facility] Stain Sifonu7392-15-74 22:47:00 Test Item Value Reference Range Interpretation Comments Gram Stain Report Rare WBC's No Organisms (test code = Gram Seen Stain Report) [facility] Fluid/Qmpkkt3659-18-57 22:47:00 Test Item Value Reference Range Interpretation Comments Culture: Aspirate/Body Fluid/Tissue No Growth (test code = Culture: Aspirate/Body Fluid/Tissue) [facility]: Ifldelwim5562-41-46 22:47:00 Test Item Value Reference Range Interpretation Comments Culture: Anaerobic No Anaerobes Isolated (test code = Culture: Anaerobic) [facility] Stain Egkuvb9020-84-72 22:47:00 Test Item Value Reference Range Interpretation Comments Gram Stain Report Rare WBC's No Organisms (test code = Gram Seen Stain Report) [facility] Aspirate/Body Fluid/Gubtgb3427-16-84 22:47:00 Test Item Value Reference Range Interpretation Comments Culture: Aspirate/Body Fluid/Tissue No Growth (test code = Culture: Aspirate/Body Fluid/Tissue) [facility] HospitalCulture: Qduhrxgcb0144-05-04 22:47:00 Test Item Value Reference Range Interpretation Comments Culture: Anaerobic No Anaerobes Isolated (test code = Culture: Anaerobic) [facility] Stain Qamdpv1629-44-39 22:47:00 Test Item Value Reference Range Interpretation Comments Gram Stain Report Rare WBC's No Organisms (test code = Gram Seen Stain Report) [facility] Aspirate/Body Fluid/Ticbzk3901-92-15 22:47:00 Test Item Value Reference Range Interpretation Comments Culture: Aspirate/Body Fluid/Tissue No Growth (test code = Culture: Aspirate/Body Fluid/Tissue) [facility] HospitalannCulture: Ojqkzibuv5092-22-84 22:47:00 Test Item Value Reference Range Interpretation Comments Culture: Anaerobic No Anaerobes Isolated (test code = Culture: Anaerobic) [facility] HospitalGram Stain Nbdnxu1191-21-44 22:47:00 Test Item Value Reference Range Interpretation Comments Gram Stain Report Rare WBC's No Organisms (test code = Gram Seen Stain Report) [facility] HospitalannCulture: Aspirate/Body Fluid/Weuttj9248-30-84 22:47:00 Test Item Value Reference Range Interpretation Comments Culture: Aspirate/Body Fluid/Tissue No Growth (test code = Culture: Aspirate/Body Fluid/Tissue) [facility] HospitalCulture: Ewchyjkrk2856-24-86 22:40:00 Test Item Value Reference Range Interpretation Comments Culture: Anaerobic No Anaerobes Isolated (test code = Culture: Anaerobic) [facility] Stain Ntifdw3307-15-78 22:40:00 Test Item Value Reference Range Interpretation Comments Gram Stain Report Rare WBC's No Organisms (test code = Gram Seen Stain Report) [facility] Aspirate/Body Fluid/Srzhjq2926-45-89 22:40:00 Test Item Value Reference Range Interpretation Comments Culture: Aspirate/Body Fluid/Tissue No Growth (test code = Culture: Aspirate/Body Fluid/Tissue) [facility] HospitalCulture: Hyybdfitl6114-94-46 22:40:00 Test Item Value Reference Range Interpretation Comments Culture: Anaerobic No Anaerobes Isolated (test code = Culture: Anaerobic) [facility] HospitalGram Stain Oxnrud2632-79-70 22:40:00 Test Item Value Reference Range Interpretation Comments Gram Stain Report Rare WBC's No Organisms (test code = Gram Seen Stain Report) [facility] HospitalCulture: Aspirate/Body Fluid/Zifslr8988-92-15 22:40:00 Test Item Value Reference Range Interpretation Comments Culture: Aspirate/Body Fluid/Tissue No Growth (test code = Culture: Aspirate/Body Fluid/Tissue) [facility] HospitalCulture: Asafuytis2151-32-80 22:40:00 Test Item Value Reference Range Interpretation Comments Culture: Anaerobic No Anaerobes Isolated (test code = Culture: Anaerobic) [facility] Stain Uoaiew5069-76-72 22:40:00 Test Item Value Reference Range Interpretation Comments Gram Stain Report Rare WBC's No Organisms (test code = Gram Seen Stain Report) [facility] HospitalannCulture: Aspirate/Body Fluid/Yavrwh2928-58-23 22:40:00 Test Item Value Reference Range Interpretation Comments Culture: Aspirate/Body Fluid/Tissue No Growth (test code = Culture: Aspirate/Body Fluid/Tissue) [facility] HospitalannCulture: Tqcwhrcfc5970-98-44 22:40:00 Test Item Value Reference Range Interpretation Comments Culture: Anaerobic No Anaerobes Isolated (test code = Culture: Anaerobic) [facility] HospitalannGram Stain Mtzvnp8980-07-03 22:40:00 Test Item Value Reference Range Interpretation Comments Gram Stain Report Rare WBC's No Organisms (test code = Gram Seen Stain Report) [facility]annCulture: Aspirate/Body Fluid/Puagee5609-71-53 22:40:00 Test Item Value Reference Range Interpretation Comments Culture: Aspirate/Body Fluid/Tissue No Growth (test code = Culture: Aspirate/Body Fluid/Tissue) [facility] HospitalCulture: Thnyrboxm4029-45-71 22:40:00 Test Item Value Reference Range Interpretation Comments Culture: Anaerobic No Anaerobes Isolated (test code = Culture: Anaerobic) [facility] HospitalHERCAMOSHOP Stain Ylscdj6095-56-86 22:40:00 Test Item Value Reference Range Interpretation Comments Gram Stain Report Rare WBC's No Organisms (test code = Gram Seen Stain Report) [facility] HospitalCulture: Aspirate/Body Fluid/Ojzesv0856-30-02 22:40:00 Test Item Value Reference Range Interpretation Comments Culture: Aspirate/Body Fluid/Tissue No Growth (test code = Culture: Aspirate/Body Fluid/Tissue) [facility] [employer] [id number] 09:55:00 Test Item Value Reference Range Interpretation Comments Antibody Scrn (test Negative (02/14/18 code = Antibody Scrn) 3:55 AM) [facility] [employer] [place] [employer] [id number] 09:55:00 Test Item Value Reference Range Interpretation Comments ABO/Rh (test code = ABO/Rh) A POS [facility] [employer] [id number] 09:55:00 Test Item Value Reference Range Interpretation Comments B/C Ratio (test code = B/C Ratio) 14 1 6-25 [facility] [employer] [id number] 09:55:00 Test Item Value Reference Range Interpretation Comments Globulin (test code = Globulin) 5.3 2.7-4.2 [place] [id number] 09:55:00 Test Item Value Reference Range Interpretation Comments A/G Ratio (test code = A/G Ratio) 0.5 1 0.7-1.6 [place] [address]-12-13 09:55:00 Test Item Value Reference Range Interpretation Comments Albumin Lvl (test code = Albumin Lvl) 2.8 3.5-5.0 [place] [address]-12-13 09:55:00 Test Item Value Reference Range Interpretation Comments Alk Phos (test code = Alk Phos) 92 39-136 [place] 416248-12-13 09:55:00 Test Item Value Reference Range Interpretation Comments ALT (test code = ALT) 21 See_Comment [Auto mated message] The system which ge nerated this result transmit garrett reference range : <=65. The reference range was not used to interpr et this result as cassie l/abnormal. [place] 416248-12-13 09:55:00 Test Item Value Reference Range Interpretation Comments AST (test code = AST) 15 See_Comment [Auto mated message] The system which ge nerated this result transmit garrett reference range : <=37. The reference range was not used to interpr et this result as cassie l/abnormal. [place] 416248-12-13 09:55:00 Test Item Value Reference Range Interpretation Comments Total Protein (test code = Total 8.1 6.4-8.4 Protein) [place] 416248-12-13 09:55:00 Test Item Value Reference Range Interpretation Comments Bili Total (test code = Bili Total) 0.2 0.2-1.3 [place] [address]-12-13 09:55:00 Test Item Value Reference Range Interpretation Comments PTT (test code = PTT) 35.4 s 22.9-35.8 [place] [address]-12-13 09:55:00 Test Item Value Reference Range Interpretation Comments PT (test code = PT) 13.4 s 12.0-14.[address]12-13 09:55:00 Test Item Value Reference Range Interpretation Comments INR (test code = INR) 1.04 1 0.85-1.17 [facility] [id number] 09:55:00 Test Item Value Reference Range Interpretation Comments Antibody Scrn (test Negative (02/14/18 code = Antibody Scrn) 3:55 AM) [facility] [id number] 09:55:00 Test Item Value Reference Range Interpretation Comments ABO/Rh (test code = ABO/Rh) A POS [facility] [employer] [id number] 09:55:00 Test Item Value Reference Range Interpretation Comments B/C Ratio (test code = B/C Ratio) 14 1 6-25 [facility] [employer] [id number] 09:55:00 Test Item Value Reference Range Interpretation Comments Globulin (test code = Globulin) 5.3 2.7-4.2 [facility]Share[facility] [id number] 09:55:00 Test Item Value Reference Range Interpretation Comments A/G Ratio (test code = A/G Ratio) 0.5 1 0.7-1.6 [facility] [id number] 09:55:00 Test Item Value Reference Range Interpretation Comments Albumin Lvl (test code = Albumin Lvl) 2.8 3.5-5.0 [facility] [employer] [id number] 09:55:00 Test Item Value Reference Range Interpretation Comments Alk Phos (test code = Alk Phos) 92 39-136 [facility] [id number] 09:55:00 Test Item Value Reference Range Interpretation Comments ALT (test code = ALT) 21 See_Comment [Auto mated message] The system which ge nerated this result transmit garrett reference range : <=65. The reference range was not used to interpr et this result as cassie l/abnormal. [facility] [employer] [id number] 09:55:00 Test Item Value Reference Range Interpretation Comments AST (test code = AST) 15 See_Comment [Auto mated message] The system which ge nerated this result transmit garrett reference range : <=37. The reference range was not used to interpr et this result as cassie l/abnormal. [facility] [employer] [id number] 09:55:00 Test Item Value Reference Range Interpretation Comments Total Protein (test code = Total 8.1 6.4-8.4 Protein) [facility] [employer] [id number] 09:55:00 Test Item Value Reference Range Interpretation Comments Bili Total (test code = Bili Total) 0.2 0.2-1.3 [facility] HospitalKxnbsioQHVOFTZJAO6277-95-09 09:55:00 Test Item Value Reference Range Interpretation Comments PTT (test code = PTT) 35.4 s 22.9-35.8 [facility] HospitalWtpdsloCDXUMIMCGR2804-00-33 09:55:00 Test Item Value Reference Range Interpretation Comments PT (test code = PT) 13.4 s 12.0-14.7 [facility] HospitalIlizbdnQFRGOMXOPE3829-64-02 09:55:00 Test Item Value Reference Range Interpretation Comments INR (test code = INR) 1.04 1 0.85-1.17 [facility] [employer] [id number] 09:55:00 Test Item Value Reference Range Interpretation Comments Antibody Scrn (test Negative (02/14/18 code = Antibody Scrn) 3:55 AM) [facility] [employer] [id number] 09:55:00 Test Item Value Reference Range Interpretation Comments ABO/Rh (test code = ABO/Rh) A POS [facility] [employer] [id number] 09:55:00 Test Item Value Reference Range Interpretation Comments B/C Ratio (test code = B/C Ratio) 14 1 6-25 [facility] [employer] [id number] 09:55:00 Test Item Value Reference Range Interpretation Comments Globulin (test code = Globulin) 5.3 2.7-4.2 [facility] [employer] [id number] 09:55:00 Test Item Value Reference Range Interpretation Comments A/G Ratio (test code = A/G Ratio) 0.5 1 0.7-1.6 [facility] [employer] [id number] 09:55:00 Test Item Value Reference Range Interpretation Comments Albumin Lvl (test code = Albumin Lvl) 2.8 3.5-5.0 [facility] [employer] [id number] 09:55:00 Test Item Value Reference Range Interpretation Comments Alk Phos (test code = Alk Phos) 92 39-136 [facility] [employer] [id number] 09:55:00 Test Item Value Reference Range Interpretation Comments ALT (test code = ALT) 21 See_Comment [Auto mated message] The system which ge nerated this result transmit garrett reference range : <=65. The reference range was not used to interpr et this result as cassie l/abnormal. [facility] [employer] [id number] 09:55:00 Test Item Value Reference Range Interpretation Comments AST (test code = AST) 15 See_Comment [Auto mated message] The system which ge nerated this result transmit garrett reference range : <=37. The reference range was not used to interpr et this result as cassie l/abnormal. [facility] [employer] [id number] 09:55:00 Test Item Value Reference Range Interpretation Comments Total Protein (test code = Total 8.1 6.4-8.4 Protein) [facility] [employer] [id number] 09:55:00 Test Item Value Reference Range Interpretation Comments Bili Total (test code = Bili Total) 0.2 0.2-1.3 [facility] HospitalHsywdoaVZMPMUYVLW8563-04-22 09:55:00 Test Item Value Reference Range Interpretation Comments PTT (test code = PTT) 35.4 s 22.9-35.8 [facility] HospitalYpdcivsOOONDKWKIK6797-27-63 09:55:00 Test Item Value Reference Range Interpretation Comments PT (test code = PT) 13.4 s 12.0-14.7 [facility] HospitalWidlrmtZBQFGXNCRI4443-81-68 09:55:00 Test Item Value Reference Range Interpretation Comments INR (test code = INR) 1.04 1 0.85-1.17 [facility] [employer] [id number] 09:55:00 Test Item Value Reference Range Interpretation Comments Antibody Scrn (test Negative (02/14/18 code = Antibody Scrn) 3:55 AM) [facility] [employer] [id number] 09:55:00 Test Item Value Reference Range Interpretation Comments ABO/Rh (test code = ABO/Rh) A POS [facility] [employer] [id number] 09:55:00 Test Item Value Reference Range Interpretation Comments B/C Ratio (test code = B/C Ratio) 14 1 6-25 [facility] [employer] [id number] 09:55:00 Test Item Value Reference Range Interpretation Comments Globulin (test code = Globulin) 5.3 2.7-4.2 [facility] [id number] 09:55:00 Test Item Value Reference Range Interpretation Comments A/G Ratio (test code = A/G Ratio) 0.5 1 0.7-1.6 [facility]2018-12-13 09:55:00 Test Item Value Reference Range Interpretation Comments Albumin Lvl (test code = Albumin Lvl) 2.8 3.5-5.0 [facility]2018-12-13 09:55:00 Test Item Value Reference Range Interpretation Comments Alk Phos (test code = Alk Phos) 92 39-136 [facility]2018-12-13 09:55:00 Test Item Value Reference Range Interpretation Comments ALT (test code = ALT) 21 See_Comment [Auto mated message] The system which ge nerated this result transmit garrett reference range : <=65. The reference range was not used to interpr et this result as cassie l/abnormal. [facility]2018-12-13 09:55:00 Test Item Value Reference Range Interpretation Comments AST (test code = AST) 15 See_Comment [Auto mated message] The system which ge nerated this result transmit garrett reference range : <=37. The reference range was not used to interpr et this result as cassie l/abnormal. [facility]2018-12-13 09:55:00 Test Item Value Reference Range Interpretation Comments Total Protein (test code = Total 8.1 6.4-8.4 Protein) [facility]2018-12-13 09:55:00 Test Item Value Reference Range Interpretation Comments Bili Total (test code = Bili Total) 0.2 0.2-1.3 [facility] CenterAczymcrFMUNFCQIIQ4697-18-47 09:55:00 Test Item Value Reference Range Interpretation Comments PTT (test code = PTT) 35.4 s 22.9-35.8 [facility] C[id number] 09:55:00 Test Item Value Reference Range Interpretation Comments PT (test code = PT) 13.4 s 12.0-14.7 [facility] CenterAcfuomfZJCHDOWRME7235-88-43 09:55:00 Test Item Value Reference Range Interpretation Comments INR (test code = INR) 1.04 1 0.85-1.17 [facility] [id number] 09:55:00 Test Item Value Reference Range Interpretation Comments Antibody Scrn (test Negative (02/14/18 code = Antibody Scrn) 3:55 AM) [facility] BANK [id number] 09:55:00 Test Item Value Reference Range Interpretation Comments ABO/Rh (test code = ABO/Rh) A POS [facility]2018-12-13 09:55:00 Test Item Value Reference Range Interpretation Comments B/C Ratio (test code = B/C Ratio) 14 1 6-25 [facility]2018-12-13 09:55:00 Test Item Value Reference Range Interpretation Comments Globulin (test code = Globulin) 5.3 2.7-4.2 [facility]2018-12-13 09:55:00 Test Item Value Reference Range Interpretation Comments A/G Ratio (test code = A/G Ratio) 0.5 1 0.7-1.6 [facility]2018-12-13 09:55:00 Test Item Value Reference Range Interpretation Comments Albumin Lvl (test code = Albumin Lvl) 2.8 3.5-5.0 [facility]2018-12-13 09:55:00 Test Item Value Reference Range Interpretation Comments Alk Phos (test code = Alk Phos) 92 39-136 [facility]2018-12-13 09:55:00 Test Item Value Reference Range Interpretation Comments ALT (test code = ALT) 21 <=65 [facility]2018-12-13 09:55:00 Test Item Value Reference Range Interpretation Comments AST (test code = AST) 15 <=37 [facility] [id number] 09:55:00 Test Item Value Reference Range Interpretation Comments Total Protein (test code = Total 8.1 6.4-8.4 Protein) [facility]2018-12-13 09:55:00 Test Item Value Reference Range Interpretation Comments Bili Total (test code = Bili Total) 0.2 0.2-1.3 [facility] [id number] 09:55:00 Test Item Value Reference Range Interpretation Comments PTT (test code = PTT) 35.4 s 22.9-35.8 [facility] [id number] 09:55:00 Test Item Value Reference Range Interpretation Comments PT (test code = PT) 13.4 s 12.0-14.7 [facility] [id number] 09:55:00 Test Item Value Reference Range Interpretation Comments INR (test code = INR) 1.04 1 0.85-1.17 [facility]2018-12-13 03:06:00 Test Item Value Reference Range Interpretation Comments Lactic Acid Lvl (test code = Lactic 1.3 0.5-2.2 Acid Lvl) [place] [id number] 03:06:00 Test Item Value Reference Range Interpretation Comments Sed Rate (test code = 60 See_Comment [Auto mated message] The Sed Rate) system which ge nerated this result transmit garrett reference range : <=15. The reference range was not used to interpr et this result as cassie l/abnormal. [facility]2018-12-13 03:06:00 Test Item Value Reference Range Interpretation Comments Lactic Acid Lvl (test code = Lactic 1.3 0.5-2.2 Acid Lvl) [facility] [id number] 03:06:00 Test Item Value Reference Range Interpretation Comments Sed Rate (test code = 60 See_Comment [Auto mated message] The Sed Rate) system which ge nerated this result transmit garrett reference range : <=15. The reference range was not used to interpr et this result as cassie l/abnormal. [facility]2018-12-13 03:06:00 Test Item Value Reference Range Interpretation Comments Lactic Acid Lvl (test code = Lactic 1.3 0.5-2.2 Acid Lvl) [facility] [id number] 03:06:00 Test Item Value Reference Range Interpretation Comments Sed Rate (test code = 60 See_Comment [Auto mated message] The Sed Rate) system which ge nerated this result transmit garrett reference range : <=15. The reference range was not used to interpr et this result as cassie l/abnormal. [facility]2018-12-13 03:06:00 Test Item Value Reference Range Interpretation Comments Lactic Acid Lvl (test code = Lactic 1.3 0.5-2.2 Acid Lvl) [place] [id number] 03:06:00 Test Item Value Reference Range Interpretation Comments Sed Rate (test code = 60 See_Comment [Auto mated message] The Sed Rate) system which ge nerated this result transmit garrett reference range : <=15. The reference range was not used to interpr et this result as cassie l/abnormal. [facility] [id number] 03:06:00 Test Item Value Reference Range Interpretation Comments Lactic Acid Lvl (test code = Lactic 1.3 0.5-2.2 Acid Lvl) [facility] [id number] 03:06:00 Test Item Value Reference Range Interpretation Comments Sed Rate (test code = Sed Rate) 60 <=15 [facility] BANK [id number] 01:24:00 Test Item Value Reference Range Interpretation Comments RBC product (test code Product available = RBC product) 4(02/13/18 7:24 PM) [facility] BANK [id number] 01:24:00 Test Item Value Reference Range Interpretation Comments RBC product (test code Product available = RBC product) 4(02/13/18 7:24 PM) [facility] BANK [id number] 01:24:00 Test Item Value Reference Range Interpretation Comments RBC product (test code Product available = RBC product) 4(02/13/18 7:24 PM) [facility] BANK [id number] 01:24:00 Test Item Value Reference Range Interpretation Comments RBC product (test code Product available = RBC product) 4(02/13/18 7:24 PM) [facility] BANK [id number] 01:24:00 Test Item Value Reference Range Interpretation Comments RBC product (test code Product available = RBC product) 4(02/13/18 7:24 PM) [facility] AND [id number] 01:00:00 Test Item Value Reference Range Interpretation Comments UA Hyal Cast (test 4 See_Comment [Automat ed message] The code = UA Hyal Cast) system which generated this result transmit garrett reference range : <=2. The reference range was not used to interpr et this result as cassie l/abnormal. [facility] AND [id number] 01:00:00 Test Item Value Reference Range Interpretation Comments UA Mucus (test code = UA Mucus) Many /LPF [facility] AND [id number] 01:00:00 Test Item Value Reference Range Interpretation Comments UA WBC (test code = 1 See_Comment [Automa garrett message] The UA WBC) system which ge nerated this result transmit garrett reference range : <=5. The reference range was not used to interpr et this result as cassie l/abnormal. [facility] AND [id number] 01:00:00 Test Item Value Reference Range Interpretation Comments UA Protein (test code Negative (02/13/18 7:00 = UA Protein) PM) [facility] AND [id number] 01:00:00 Test Item Value Reference Range Interpretation Comments UA Spec Grav (test code = UA Spec 1.013 1 Grav) [facility] AND [id number] 01:00:00 Test Item Value Reference Range Interpretation Comments UA pH (test code = UA pH) 6.0 1 5.0-8.0 [facility] AND [id number] 01:00:00 Test Item Value Reference Range Interpretation Comments UA Nitrite (test code Negative (02/13/18 7:00 = UA Nitrite) PM) [facility] AND [id number] 01:00:00 Test Item Value Reference Range Interpretation Comments UA Blood (test code = Negative (02/13/18 7:00 UA Blood) PM) [facility] AND [id number] 01:00:00 Test Item Value Reference Range Interpretation Comments UA Bili (test code = Negative *NA*(02/13/18 UA Bili) 7:00 PM) [facility] AND [id number] 01:00:00 Test Item Value Reference Range Interpretation Comments UA Ketones (test code = UA Ketones) Negative [facility] AND [id number] 01:00:00 Test Item Value Reference Range Interpretation Comments UA Glucose (test code Negative *NA*(02/13/18 = UA Glucose) 7:00 PM) [facility] AND [id number] 01:00:00 Test Item Value Reference Range Interpretation Comments UA Sq Epi (test code = UA Sq Occasional /LPF Epi) [facility] AND [id number] 01:00:00 Test Item Value Reference Range Interpretation Comments UA Leuk Est (test Negative (02/13/18 7:00 code = UA Leuk Est) PM) [facility] AND [id number] 01:00:00 Test Item Value Reference Range Interpretation Comments UA Urobilinogen (test code = UA <=1.0 mg/dL 0.1-1.0 Urobilinogen) [facility] AND [id number] 01:00:00 Test Item Value Reference Range Interpretation Comments UA Color (test code = Yellow *NA*(02/13/18 UA Color) 7:00 PM) [facility] AND [id number] 01:00:00 Test Item Value Reference Range Interpretation Comments UA Turbidity (test code = Clear (02/13/18 7:00 UA Turbidity) PM) [facility] AND [id number] 01:00:00 Test Item Value Reference Range Interpretation Comments UA Hyal Cast (test 4 See_Comment [Automat ed message] The code = UA Hyal Cast) system which generated this result transmit garrett reference range : <=2. The reference range was not used to interpr et this result as cassie l/abnormal. [facility] AND [id number] 01:00:00 Test Item Value Reference Range Interpretation Comments UA Mucus (test code = UA Mucus) Many /LPF [facility] AND [id number] 01:00:00 Test Item Value Reference Range Interpretation Comments UA WBC (test code = 1 See_Comment [Automa garrett message] The UA WBC) system which ge nerated this result transmit garrett reference range : <=5. The reference range was not used to interpr et this result as cassie l/abnormal. [facility] AND [id number] 01:00:00 Test Item Value Reference Range Interpretation Comments UA Protein (test code Negative (02/13/18 7:00 = UA Protein) PM) [facility] AND [id number] 01:00:00 Test Item Value Reference Range Interpretation Comments UA Spec Grav (test code = UA Spec 1.013 1 Grav) [facility] AND [id number] 01:00:00 Test Item Value Reference Range Interpretation Comments UA pH (test code = UA pH) 6.0 1 5.0-8.0 [facility] AND [id number] 01:00:00 Test Item Value Reference Range Interpretation Comments UA Nitrite (test code Negative (02/13/18 7:00 = UA Nitrite) PM) [facility] AND [id number] 01:00:00 Test Item Value Reference Range Interpretation Comments UA Blood (test code = Negative (02/13/18 7:00 UA Blood) PM) [facility] AND [id number] 01:00:00 Test Item Value Reference Range Interpretation Comments UA Bili (test code = Negative *NA*(02/13/18 UA Bili) 7:00 PM) [facility] AND [id number] 01:00:00 Test Item Value Reference Range Interpretation Comments UA Ketones (test code = UA Ketones) Negative [facility] AND [id number] 01:00:00 Test Item Value Reference Range Interpretation Comments UA Glucose (test code Negative *NA*(02/13/18 = UA Glucose) 7:00 PM) [facility] AND [id number] 01:00:00 Test Item Value Reference Range Interpretation Comments UA Sq Epi (test code = UA Sq Occasional /LPF Epi) [facility] AND [id number] 01:00:00 Test Item Value Reference Range Interpretation Comments UA Leuk Est (test Negative (02/13/18 7:00 code = UA Leuk Est) PM) [facility] AND [id number] 01:00:00 Test Item Value Reference Range Interpretation Comments UA Urobilinogen (test code = UA <=1.0 mg/dL 0.1-1.0 Urobilinogen) [facility] AND [id number] 01:00:00 Test Item Value Reference Range Interpretation Comments UA Color (test code = Yellow *NA*(02/13/18 UA Color) 7:00 PM) [facility] AND [id number] 01:00:00 Test Item Value Reference Range Interpretation Comments UA Turbidity (test code = Clear (02/13/18 7:00 UA Turbidity) PM) [facility] AND [id number] 01:00:00 Test Item Value Reference Range Interpretation Comments UA Hyal Cast (test 4 See_Comment [Automat ed message] The code = UA Hyal Cast) system which generated this result transmit garrett reference range : <=2. The reference range was not used to interpr et this result as cassie l/abnormal. [facility] AND [id number] 01:00:00 Test Item Value Reference Range Interpretation Comments UA Mucus (test code = UA Mucus) Many /LPF [facility] AND [id number] 01:00:00 Test Item Value Reference Range Interpretation Comments UA WBC (test code = 1 See_Comment [Automa garrett message] The UA WBC) system which ge nerated this result transmit garrett reference range : <=5. The reference range was not used to interpr et this result as cassie l/abnormal. [facility] AND [id number] 01:00:00 Test Item Value Reference Range Interpretation Comments UA Protein (test code Negative (02/13/18 7:00 = UA Protein) PM) [facility] AND [id number] 01:00:00 Test Item Value Reference Range Interpretation Comments UA Spec Grav (test code = UA Spec 1.013 1 Grav) [facility] AND [id number] 01:00:00 Test Item Value Reference Range Interpretation Comments UA pH (test code = UA pH) 6.0 1 5.0-8.0 [facility] AND [id number] 01:00:00 Test Item Value Reference Range Interpretation Comments UA Nitrite (test code Negative (02/13/18 7:00 = UA Nitrite) PM) [facility] AND [id number] 01:00:00 Test Item Value Reference Range Interpretation Comments UA Blood (test code = Negative (02/13/18 7:00 UA Blood) PM) [facility] AND [id number] 01:00:00 Test Item Value Reference Range Interpretation Comments UA Bili (test code = Negative *NA*(02/13/18 UA Bili) 7:00 PM) [facility] AND [id number] 01:00:00 Test Item Value Reference Range Interpretation Comments UA Ketones (test code = UA Ketones) Negative [facility] AND [id number] 01:00:00 Test Item Value Reference Range Interpretation Comments UA Glucose (test code Negative *NA*(02/13/18 = UA Glucose) 7:00 PM) [facility] AND [id number] 01:00:00 Test Item Value Reference Range Interpretation Comments UA Sq Epi (test code = UA Sq Occasional /LPF Epi) [facility] AND [id number] 01:00:00 Test Item Value Reference Range Interpretation Comments UA Leuk Est (test Negative (02/13/18 7:00 code = UA Leuk Est) PM) [facility] AND [id number] 01:00:00 Test Item Value Reference Range Interpretation Comments UA Urobilinogen (test code = UA <=1.0 mg/dL 0.1-1.0 Urobilinogen) [facility] AND [id number] 01:00:00 Test Item Value Reference Range Interpretation Comments UA Color (test code = Yellow *NA*(02/13/18 UA Color) 7:00 PM) [facility] AND [id number] 01:00:00 Test Item Value Reference Range Interpretation Comments UA Turbidity (test code = Clear (02/13/18 7:00 UA Turbidity) PM) [facility] AND [id number] 01:00:00 Test Item Value Reference Range Interpretation Comments UA Hyal Cast (test 4 See_Comment [Automat ed message] The code = UA Hyal Cast) system which generated this result transmit garrett reference range : <=2. The reference range was not used to interpr et this result as cassie l/abnormal. [facility] AND [id number] 01:00:00 Test Item Value Reference Range Interpretation Comments UA Mucus (test code = UA Mucus) Many /LPF [facility] AND [id number] 01:00:00 Test Item Value Reference Range Interpretation Comments UA WBC (test code = 1 See_Comment [Automa garrett message] The UA WBC) system which ge nerated this result transmit garrett reference range : <=5. The reference range was not used to interpr et this result as cassie l/abnormal. [facility] AND [id number] 01:00:00 Test Item Value Reference Range Interpretation Comments UA Protein (test code Negative (02/13/18 7:00 = UA Protein) PM) [facility] AND [id number] 01:00:00 Test Item Value Reference Range Interpretation Comments UA Spec Grav (test code = UA Spec 1.013 1 Grav) [facility] AND [id number] 01:00:00 Test Item Value Reference Range Interpretation Comments UA pH (test code = UA pH) 6.0 1 5.0-8.0 [facility] AND [id number] 01:00:00 Test Item Value Reference Range Interpretation Comments UA Nitrite (test code Negative (02/13/18 7:00 = UA Nitrite) PM) [facility] AND [id number] 01:00:00 Test Item Value Reference Range Interpretation Comments UA Blood (test code = Negative (02/13/18 7:00 UA Blood) PM) [facility] AND [id number] 01:00:00 Test Item Value Reference Range Interpretation Comments UA Bili (test code = Negative *NA*(02/13/18 UA Bili) 7:00 PM) [facility] AND [id number] 01:00:00 Test Item Value Reference Range Interpretation Comments UA Ketones (test code = UA Ketones) Negative [facility] AND [id number] 01:00:00 Test Item Value Reference Range Interpretation Comments UA Glucose (test code Negative *NA*(02/13/18 = UA Glucose) 7:00 PM) [facility] AND [id number] 01:00:00 Test Item Value Reference Range Interpretation Comments UA Sq Epi (test code = UA Sq Occasional /LPF Epi) [facility] AND [id number] 01:00:00 Test Item Value Reference Range Interpretation Comments UA Leuk Est (test Negative (02/13/18 7:00 code = UA Leuk Est) PM) [facility] AND [id number] 01:00:00 Test Item Value Reference Range Interpretation Comments UA Urobilinogen (test code = UA <=1.0 mg/dL 0.1-1.0 Urobilinogen) [facility] AND [id number] 01:00:00 Test Item Value Reference Range Interpretation Comments UA Color (test code = Yellow *NA*(02/13/18 UA Color) 7:00 PM) [facility] AND [id number] 01:00:00 Test Item Value Reference Range Interpretation Comments UA Turbidity (test code = Clear (02/13/18 7:00 UA Turbidity) PM) [facility] AND [id number] 01:00:00 Test Item Value Reference Range Interpretation Comments UA Hyal Cast (test code = UA Hyal Cast) 4 <=2 [facility] AND [id number] 01:00:00 Test Item Value Reference Range Interpretation Comments UA Mucus (test code = UA Mucus) Many /LPF [facility] AND [id number] 01:00:00 Test Item Value Reference Range Interpretation Comments UA WBC (test code = UA WBC) 1 <=5 [facility] AND [id number] 01:00:00 Test Item Value Reference Range Interpretation Comments UA Protein (test code Negative (02/13/18 7:00 = UA Protein) PM) [facility] AND [id number] 01:00:00 Test Item Value Reference Range Interpretation Comments UA Spec Grav (test code = UA Spec 1.013 1 Grav) [facility] AND [id number] 01:00:00 Test Item Value Reference Range Interpretation Comments UA pH (test code = UA pH) 6.0 1 5.0-8.0 [facility] AND [id number] 01:00:00 Test Item Value Reference Range Interpretation Comments UA Nitrite (test code Negative (02/13/18 7:00 = UA Nitrite) PM) [facility] AND [id number] 01:00:00 Test Item Value Reference Range Interpretation Comments UA Blood (test code = Negative (02/13/18 7:00 UA Blood) PM) [facility] AND [id number] 01:00:00 Test Item Value Reference Range Interpretation Comments UA Bili (test code = Negative *NA*(02/13/18 UA Bili) 7:00 PM) [facility] AND [id number] 01:00:00 Test Item Value Reference Range Interpretation Comments UA Ketones (test code = UA Ketones) Negative [facility] AND [id number] 01:00:00 Test Item Value Reference Range Interpretation Comments UA Glucose (test code Negative *NA*(02/13/18 = UA Glucose) 7:00 PM) [facility] AND [id number] 01:00:00 Test Item Value Reference Range Interpretation Comments UA Sq Epi (test code = UA Sq Occasional /LPF Epi) [facility] AND [id number] 01:00:00 Test Item Value Reference Range Interpretation Comments UA Leuk Est (test Negative (02/13/18 7:00 code = UA Leuk Est) PM) [facility] [id number] 01:00:00 Test Item Value Reference Range Interpretation Comments UA Urobilinogen (test code = UA <=1.0 mg/dL 0.1-1.0 Urobilinogen) [facility] [id number] 01:00:00 Test Item Value Reference Range Interpretation Comments UA Color (test code = Yellow *NA*(02/13/18 UA Color) 7:00 PM) [facility] [id number] 01:00:00 Test Item Value Reference Range Interpretation Comments UA Turbidity (test code = Clear (02/13/18 7:00 UA Turbidity) PM) [facility] [id number] 22:30:00 Test Item Value Reference Range Interpretation Comments Total CK (test code = Total CK) 26 12-191 [facility] [id number] 22:30:00 Test Item Value Reference Range Interpretation Comments BNP (test code = BNP) 81 [facility] [id number] 22:30:00 Test Item Value Reference Range Interpretation Comments Troponin-I (test code no gt See_Comment [Auto mated message] The = Troponin-I) system which g enerated this result transmit garrett reference range : <=0.40. The reference r ondina was not used to interpr et this result as cassie l/abnormal. [facility] [employer] [id number] 22:30:00 Test Item Value Reference Range Interpretation Comments Lactic Acid Lvl (test code = Lactic 2.1 0.5-2.2 Acid Lvl) [facility] [employer] [id number] 22:30:00 Test Item Value Reference Range Interpretation Comments B/C Ratio (test code = B/C Ratio) 10 1 6-25 [facility] [id number] 22:30:00 Test Item Value Reference Range Interpretation Comments Globulin (test code = Globulin) 4.7 2.7-4.2 [facility] [employer] [id number] 22:30:00 Test Item Value Reference Range Interpretation Comments A/G Ratio (test code = A/G Ratio) 0.6 1 0.7-1.6 [facility]2018-12-12 22:30:00 Test Item Value Reference Range Interpretation Comments Total Protein (test code = Total 7.6 6.4-8.4 Protein) [facility]2018-12-12 22:30:00 Test Item Value Reference Range Interpretation Comments Bili Total (test code = Bili Total) 0.4 0.2-1.3 [facility]2018-12-12 22:30:00 Test Item Value Reference Range Interpretation Comments AST (test code = AST) 13 See_Comment [Auto mated message] The system which ge nerated this result transmit garrett reference range : <=37. The reference range was not used to interpr et this result as cassie l/abnormal. [facility]2018-12-12 22:30:00 Test Item Value Reference Range Interpretation Comments Alk Phos (test code = Alk Phos) 95 39-136 [facility]2018-12-12 22:30:00 Test Item Value Reference Range Interpretation Comments ALT (test code = ALT) 18 See_Comment [Auto mated message] The system which ge nerated this result transmit garrett reference range : <=65. The reference range was not used to interpr et this result as cassie l/abnormal. [facility]2018-12-12 22:30:00 Test Item Value Reference Range Interpretation Comments Albumin Lvl (test code = Albumin Lvl) 2.9 3.5-5.0 [id number] 22:30:00 Test Item Value Reference Range Interpretation Comments D-Dimer (test code = D-Dimer) 0.55 [facility] [id number] 22:30:00 Test Item Value Reference Range Interpretation Comments C-REACTIVE PROTEIN (test code = 48.5 C-REACTIVE PROTEIN) [facility] [id number] 22:30:00 Test Item Value Reference Range Interpretation Comments Total CK (test code = Total CK) 26 12-191 [facility] [id number] 22:30:00 Test Item Value Reference Range Interpretation Comments BNP (test code = BNP) 81 [facility] [id number] 22:30:00 Test Item Value Reference Range Interpretation Comments Troponin-I (test code no gt See_Comment [Auto mated message] The = Troponin-I) system which g enerated this result transmit garrett reference range : <=0.40. The reference r ondina was not used to interpr et this result as cassie l/abnormal. [place] [id number] 22:30:00 Test Item Value Reference Range Interpretation Comments Lactic Acid Lvl (test code = Lactic 2.1 0.5-2.2 Acid Lvl) [place] [id number] 22:30:00 Test Item Value Reference Range Interpretation Comments B/C Ratio (test code = B/C Ratio) 10 1 6-[address]12-12 22:30:00 Test Item Value Reference Range Interpretation Comments Globulin (test code = Globulin) 4.7 2.7-4.2 [place] [id number] 22:30:00 Test Item Value Reference Range Interpretation Comments A/G Ratio (test code = A/G Ratio) 0.6 1 0.7-1.[address]12-12 22:30:00 Test Item Value Reference Range Interpretation Comments Total Protein (test code = Total 7.6 6.4-8.4 Protein) [address]12-12 22:30:00 Test Item Value Reference Range Interpretation Comments Bili Total (test code = Bili Total) 0.4 0.2-1.[address]12-12 22:30:00 Test Item Value Reference Range Interpretation Comments AST (test code = AST) 13 See_Comment [Auto mated message] The system which ge nerated this result transmit garrett reference range : <=37. The reference range was not used to interpr et this result as cassie l/abnormal. [place] [id number] 22:30:00 Test Item Value Reference Range Interpretation Comments Alk Phos (test code = Alk Phos) 95 39-136 [place] [address]-12-12 22:30:00 Test Item Value Reference Range Interpretation Comments ALT (test code = ALT) 18 See_Comment [Auto mated message] The system which ge nerated this result transmit garrett reference range : <=65. The reference range was not used to interpr et this result as cassie l/abnormal. [facility] [id number] 22:30:00 Test Item Value Reference Range Interpretation Comments Albumin Lvl (test code = Albumin Lvl) 2.9 3.5-5.0 [id number] 22:30:00 Test Item Value Reference Range Interpretation Comments D-Dimer (test code = D-Dimer) 0.55 [facility] [id number] 22:30:00 Test Item Value Reference Range Interpretation Comments C-REACTIVE PROTEIN (test code = 48.5 C-REACTIVE PROTEIN) [facility] [id number] 22:30:00 Test Item Value Reference Range Interpretation Comments Total CK (test code = Total CK) 26 12-191 [facility] [id number] 22:30:00 Test Item Value Reference Range Interpretation Comments BNP (test code = BNP) 81 [facility] [id number] 22:30:00 Test Item Value Reference Range Interpretation Comments Troponin-I (test code no gt See_Comment [Auto mated message] The = Troponin-I) system which g enerated this result transmit garrett reference range : <=0.40. The reference r ondina was not used to interpr et this result as cassie l/abnormal. [facility] [id number] 22:30:00 Test Item Value Reference Range Interpretation Comments Lactic Acid Lvl (test code = Lactic 2.1 0.5-2.2 Acid Lvl) [facility] [id number] 22:30:00 Test Item Value Reference Range Interpretation Comments B/C Ratio (test code = B/C Ratio) 10 1 6-25 [facility] [id number] 22:30:00 Test Item Value Reference Range Interpretation Comments Globulin (test code = Globulin) 4.7 2.7-4.2 [facility] [id number] 22:30:00 Test Item Value Reference Range Interpretation Comments A/G Ratio (test code = A/G Ratio) 0.6 1 0.7-1.6 [facility] [id number] 22:30:00 Test Item Value Reference Range Interpretation Comments Total Protein (test code = Total 7.6 6.4-8.4 Protein) [facility] [id number] 22:30:00 Test Item Value Reference Range Interpretation Comments Bili Total (test code = Bili Total) 0.4 0.2-1.3 [facility]2018-12-12 22:30:00 Test Item Value Reference Range Interpretation Comments AST (test code = AST) 13 See_Comment [Auto mated message] The system which ge nerated this result transmit garrett reference range : <=37. The reference range was not used to interpr et this result as cassie l/abnormal. [facility]2018-12-12 22:30:00 Test Item Value Reference Range Interpretation Comments Alk Phos (test code = Alk Phos) 95 39-136 [facility]2018-12-12 22:30:00 Test Item Value Reference Range Interpretation Comments ALT (test code = ALT) 18 See_Comment [Auto mated message] The system which ge nerated this result transmit garrett reference range : <=65. The reference range was not used to interpr et this result as cassie l/abnormal. [facility]2018-12-12 22:30:00 Test Item Value Reference Range Interpretation Comments Albumin Lvl (test code = Albumin Lvl) 2.9 3.5-5.0 [facility] [id number] 22:30:00 Test Item Value Reference Range Interpretation Comments D-Dimer (test code = D-Dimer) 0.55 [facility] [id number] 22:30:00 Test Item Value Reference Range Interpretation Comments C-REACTIVE PROTEIN (test code = 48.5 C-REACTIVE PROTEIN) [facility] [id number] 22:30:00 Test Item Value Reference Range Interpretation Comments Total CK (test code = Total CK) 26 12-191 [facility] [id number] 22:30:00 Test Item Value Reference Range Interpretation Comments BNP (test code = BNP) 81 [facility] [id number] 22:30:00 Test Item Value Reference Range Interpretation Comments Troponin-I (test code no gt See_Comment [Auto mated message] The = Troponin-I) system which g enerated this result transmit garrett reference range : <=0.40. The reference r ondina was not used to interpr et this result as cassie l/abnormal. [place] [id number] 22:30:00 Test Item Value Reference Range Interpretation Comments Lactic Acid Lvl (test code = Lactic 2.1 0.5-2.2 Acid Lvl) [address]12-12 22:30:00 Test Item Value Reference Range Interpretation Comments B/C Ratio (test code = B/C Ratio) 10 1 6-[address]12-12 22:30:00 Test Item Value Reference Range Interpretation Comments Globulin (test code = Globulin) 4.7 2.7-4.2 [place] [address]-12-12 22:30:00 Test Item Value Reference Range Interpretation Comments A/G Ratio (test code = A/G Ratio) 0.6 1 0.7-1.[address]12-12 22:30:00 Test Item Value Reference Range Interpretation Comments Total Protein (test code = Total 7.6 6.4-8.4 Protein) [place] [id number] 22:30:00 Test Item Value Reference Range Interpretation Comments Bili Total (test code = Bili Total) 0.4 0.2-1.3 [place] 416248-12-12 22:30:00 Test Item Value Reference Range Interpretation Comments AST (test code = AST) 13 See_Comment [Auto mated message] The system which ge nerated this result transmit garrett reference range : <=37. The reference range was not used to interpr et this result as cassie l/abnormal. [facility]2018-12-12 22:30:00 Test Item Value Reference Range Interpretation Comments Alk Phos (test code = Alk Phos) 95 39-136 [place] [address]-12-12 22:30:00 Test Item Value Reference Range Interpretation Comments ALT (test code = ALT) 18 See_Comment [Auto mated message] The system which ge nerated this result transmit garrett reference range : <=65. The reference range was not used to interpr et this result as cassie l/abnormal. [place] 416248-12-12 22:30:00 Test Item Value Reference Range Interpretation Comments Albumin Lvl (test code = Albumin Lvl) 2.9 3.5-5.0 [facility] [id number] 22:30:00 Test Item Value Reference Range Interpretation Comments D-Dimer (test code = D-Dimer) 0.55 [facility] [id number] 22:30:00 Test Item Value Reference Range Interpretation Comments C-REACTIVE PROTEIN (test code = 48.5 C-REACTIVE PROTEIN) [facility] HospitalannCARDIAC [id number] 22:30:00 Test Item Value Reference Range Interpretation Comments Total CK (test code = Total CK) 26 12-191 [facility] Tw[employer]annCARVinspiAC [id number] 22:30:00 Test Item Value Reference Range Interpretation Comments BNP (test code = BNP) 81 [facility] TwillionannJobspottingAC [id number] 22:30:00 Test Item Value Reference Range Interpretation Comments Troponin-I (test code = Troponin-I) no gt <=0.40 [facility] [employer] [id number] 22:30:00 Test Item Value Reference Range Interpretation Comments Lactic Acid Lvl (test code = Lactic 2.1 0.5-2.2 Acid Lvl) [facility] [employer] [id number] 22:30:00 Test Item Value Reference Range Interpretation Comments B/C Ratio (test code = B/C Ratio) 10 1 6-25 [facility] [employer] [id number] 22:30:00 Test Item Value Reference Range Interpretation Comments Globulin (test code = Globulin) 4.7 2.7-4.2 [facility] [employer] [id number] 22:30:00 Test Item Value Reference Range Interpretation Comments A/G Ratio (test code = A/G Ratio) 0.6 1 0.7-1.6 [facility] [employer] [id number] 22:30:00 Test Item Value Reference Range Interpretation Comments Total Protein (test code = Total 7.6 6.4-8.4 Protein) [facility] [employer] [id number] 22:30:00 Test Item Value Reference Range Interpretation Comments Bili Total (test code = Bili Total) 0.4 0.2-1.3 [facility] [employer] [id number] 22:30:00 Test Item Value Reference Range Interpretation Comments AST (test code = AST) 13 <=37 [facility]2018-12-12 22:30:00 Test Item Value Reference Range Interpretation Comments Alk Phos (test code = Alk Phos) 95 39-136 [facility]2018-12-12 22:30:00 Test Item Value Reference Range Interpretation Comments ALT (test code = ALT) 18 <=65 [facility]2018-12-12 22:30:00 Test Item Value Reference Range Interpretation Comments Albumin Lvl (test code = Albumin Lvl) 2.9 3.5-5.0 [facility] Hospit[id number] 22:30:00 Test Item Value Reference Range Interpretation Comments D-Dimer (test code = D-Dimer) 0.55 [facility] [id number] 22:30:00 Test Item Value Reference Range Interpretation Comments C-REACTIVE PROTEIN (test code = 48.5 C-REACTIVE PROTEIN) [facility]
[2022-12-21] MEDS ORDERED: MORPHINE 4 MG/ML SYR ONE ×2 (21:32→22:22)
[2022-12-21] MEDS ORDERED: ONDANSETRON 4 MG (ODT) TAB ONE (21:32)
--- NOTE | 2022-12-21 21:50 | RAD REPORT ---
EXAM DESCRIPTION: RADChest Single View12/21/2022 9:31 pm CLINICAL HISTORY: CHEST PAIN COMPARISON: Chest Single View dated 10/19/2022; Chest Single View dated 08/31/2022; Chest Single View dated 11/20/2021; Chest Single View dated 08/15/2018 TECHNIQUE: Portable AP view of the chest. FINDINGS: Under penetration somewhat limits evaluation. Blunting of the left costophrenic angle, fav ored to be artifactual. The lungs show no other focal opacity. No pneumothorax or effusion. The card iomediastinal contours are unremarkable. IMPRESSION: No acute cardiopulmonary process. Findings as above.
--- NOTE | 2022-12-21 22:08 | EDPHYS ---
Physician Documentation [facility] Name: Fred Hardy Age: 67 yrs Sex: Male : 1955 Arrival Date: 12/21/2022 Time: 19:56 Bed 24 Private MD: ED Physician Kofi Birch HPI: 12/21 20:26 This 67 yrs old Male presents to ER via Ambulatory with complaints of Chest ec2 Pain, Back Pain. 20:26 Patient arrives today due to concern for multiple complaints including chest pain, back ec2 pain, anxiety. Patient reports that he experienced some left sinus pressure prior to arrival. States that the pain started approximately 3 hours prior to arrival. Patient reports no exertional component, states that he is completely asymptomatic at this time. States that he also has a history of anxiety and thinks this is contributing to this, states that he takes buspirone for this. Patient reports some occasional shortness of breath. Patient reports no fevers or chills, no nausea or vomiting. Patient also reports history of low back pain that is chronic for him.. Historical: - Allergies: 20:07 IV contrast; lg3 20:07 PENICILLINS; lg3 - PMHx: 20:07 coronary atherosclerosis; Hyperlipidemia; Hypertension; Myocardial infarction; lg3 Transient cerebral ischemia; - PSHx: 20:07 Coronary Angioplasty; Coronary artery bypass graft; umbilical hernia repair; lg3 - Immunization history:: Adult Immunizations up to date, Client reports receiving the 2nd dose of the Covid vaccine. - Social history:: Smoking status: Patient denies any tobacco usage or history of. Patient/guardian denies using alcohol, street drugs. ROS: 20:26 Constitutional: Chest pain, back pain, anxiety. ec2 Exam: 20:26 Constitutional: GEN: NAD Head: atraumatic Eyes: EOMI Ears: External ears are ec2 normal. CV: regular rate LUNGS: no respiratory distress ABD: non-distended SKIN: no evidence of rashes MSK: no evidence of trauma NEURO: moves all extremities equally psych: Anxious individual. Vital Signs: 20:04 BP 148 / 86; Pulse 78; Resp 19 S; Temp 97.9; Pulse Ox 94% on R/A; Weight 87.54 kg (R); lg3 Height 5 ft. 11 in. (R); Pain 8/10; 22:05 BP 107 / 67; Pulse 70; Pulse Ox 96% on R/A; ap3 20:04 Body Mass Index 26.92 (87.54 kg, 180.34 cm) lg3 20:04 Pain Scale: Adult lg3 MDM: 20:04 Patient medically screened. ec2 20:16 Patient medically screened. ec2 20:26 ED course: Patient arrives today due to concern for chest pain, anxiety, low back pain. ec2 Examination remarkable for anxious individual was otherwise in no acute distress with reassuring vital signs. Will obtain cardiac profile, EKG, chest x-ray, give the patient Valium as well as a full dose of aspirin. Currently considering process such as anxiety, ACS, less risk for PE or dissection.. ED course: EKG independently reviewed and interpreted by me, shows normal sinus rhythm, rate of 67, no acute ST segment elevations, nonconcerning intervals. . 21:24 ED course: CBC is reassuring, metabolic profile shows appropriate electrolytes, some ec2 diminished renal function with a GFR of 60 and a creatinine of 1.3, troponin within normal ranges. . 21:51 ED course: Chest x-ray independently reviewed and interpreted by me, shows no acute ec2 intrathoracic process.. 22:03 HEART Score: History: Slightly Suspicious (0), ECG: Non specific repolarization ec2 disturbance / LBTB / PM (1), Age: > or = 65 years (2), Risk Factors: > or = 3 Risk factors for atherosclerotic disease (2), Troponin: < or = 1 x Normal Limit (0), Total Score = 5. ED course: On reassessment patient reports some chest discomfort, will give the patient dose of morphine. Patient ultimately with a heart score of 5, will admit for continued cardiac management. I discussed case with the hospitalist, pending admission.. 22:32 Data reviewed: vital signs. ec2 12/21 20:26 Order name: Basic Metabolic Panel; Complete Time: 21:23 ec2 12/21 20:26 Order name: CBC with Diff; Complete Time: 21:23 ec2 12/21 20:26 Order name: Troponin HS; Complete Time: 21:23 ec2 12/21 22:48 Order name: NT PRO-BNP EDMS 12/21 22:48 Order name: Lipid Profile EDMS 12/21 22:48 Order name: Basic Metabolic Panel EDMS 12/21 22:48 Order name: Basic Metabolic Panel EDMS 12/21 22:48 Order name: CBC with Automated Diff EDMS 12/21 22:48 Order name: CBC with Automated Diff EDMS 12/21 22:48 Order name: Magnesium EDMS 12/21 22:48 Order name: Magnesium EDMS 12/21 22:48 Order name: Troponin High Sensitivity EDMS 12/21 22:48 Order name: Troponin High Sensitivity EDMS 12/21 22:48 Order name: Troponin High Sensitivity EDMS 12/21 22:48 Order name: Troponin High Sensitivity EDMS 12/21 20:26 Order name: XRAY Chest (1 view); Complete Time: 21:51 ec2 12/22 12:39 Order name: NM EDMS 12/21 20:26 Order name: EKG; Complete Time: 20:26 ec2 12/21 22:46 Order name: CONS Physician Consult EDMS 12/21 20:26 Order name: Cardiac monitoring; Complete Time: 20:29 ec2 12/21 20:26 Order name: EKG - Nurse/Tech; Complete Time: 20:29 ec2 12/21 20:26 Order name: IV Saline Lock; Complete Time: 20:29 ec2 12/21 20:26 Order name: Labs collected and sent; Complete Time: 20:29 ec2 12/21 20:26 Order name: O2 Per Protocol; Complete Time: 20:29 ec2 12/21 20:26 Order name: O2 Sat Monitoring; Complete Time: 20:29 ec2 Administered Medications: 20:40 Drug: Aspirin PO Chewable Tablet 324 mg PO once; 81 mg tablets x 4 Route: PO; mb9 20:40 Drug: Diazepam IVP 5 mg IVP once Route: IVP; Site: right forearm; mb9 22:17 Follow up: Response: No adverse reaction ap3 20:53 Drug: diphenhydrAMINE IVP 25 mg IVP once Route: IVP; Site: right forearm; mb9 22:17 Follow up: Response: No adverse reaction ap3 22:17 Drug: morphine IVP or IV 4 mg IVP once over 4 mins Route: IVP; Infused Over: 4 mins; ap3 Site: right forearm; Disposition Summary: 12/21/22 22:07 Hospitalization Ordered Notes: Hospitalization Status: Inpatient Admission ec2 Condition: Stable ec2 Problem: an acute exacerbation ec2 Symptoms: have improved ec2 Bed/Room Type: Standard ec2 Location: [facility] ER HOLD(12/21/22 22:18) Room Assignment: ERHOLD-(12/21/22 22:18) cg Provider: Janet Zapata(12/21/22 22:32) ec2 Diagnosis - Chest pain, unspecified ec2 Discharge Instructions: - Discharge Summary Sheet ap3 Forms: - Medication Reconciliation Form ec2 - SBAR form ec2 - Leadership Thank You Letter ec2 Signatures: Dispatcher [employer] Anay Mina RN RN cg Shandra Carrington RN RN ap3 Keyona Sullivan RN RN 3 Gayle Barr RN RN mb9 Kofi Birch MD MD ec2 Corrections: (The following items were deleted from the chart) 22:18 22:07 Telemetry/MedSurg (Inpatient) ec2 cg 22:18 22:07 ec2 22:32 22:07 Kwabena Viveros ec2 ec2
--- NOTE | 2022-12-21 22:08 | ER ---
Nurse's Notes [facility] Name: Fred Hardy Age: 67 yrs Sex: Male : 1955 Arrival Date: 12/21/2022 Time: 19:56 Bed 24 Private MD: Diagnosis: Chest pain, unspecified Presentation: 12/21 20:04 Chief complaint: Patient states: bryan had a really stressful day today. i went to bed lg3 around 1900 and woke up at 1930 with extreme back pain, SOB and center chest pain radiating to left shoulder. Coronavirus screen: Client denies travel out of the [place] in the last 14 days. At this time, the client does not indicate any symptoms associated with coronavirus-19. Ebola Screen: No symptoms or risks identified at this time. Initial Sepsis Screen: Does the patient meet any 2 criteria? No. Patient's initial sepsis screen is negative. Does the patient have a suspected source of infection? No. Patient's initial sepsis screen is negative. Risk Assessment: Do you want to hurt yourself or someone else? Patient reports no desire to harm self or others. Onset of symptoms was December 21, 2022. 20:04 Method Of Arrival: Ambulatory lg3 20:04 Acuity: JOSÉ MIGUEL 3 lg3 Triage Assessment: 20:07 General: Appears in no apparent distress. uncomfortable, Behavior is calm, cooperative. lg3 Pain: Complains of pain in back Pain radiates to left shoulder. EENT: No deficits noted. No signs and/or symptoms were reported regarding the EENT system. Neuro: No deficits noted. Britt Agitation-Sedation Scale (RASS): 0 - Alert and Calm Level of Consciousness is awake, alert, obeys commands, Oriented to person, place, time, situation. Cardiovascular: Reports chest pain, shortness of breath, Capillary refill < 3 seconds Clubbing of nail beds is absent JVD is absent Patient's skin is warm and dry. Respiratory: No deficits noted. Reports shortness of breath Airway is patent Respiratory effort is even, unlabored, Respiratory pattern is regular, symmetrical. 20:07 GI: No deficits noted. No signs and/or symptoms were reported involving the lg3 gastrointestinal system. : No deficits noted. No signs and/or symptoms were reported regarding the genitourinary system. Derm: No deficits noted. No signs and/or symptoms reported regarding the dermatologic system. Skin is intact, is healthy with good turgor, Skin is dry, Skin is normal, Skin temperature is warm. Musculoskeletal: No deficits noted. No signs and/or symptoms reported regarding the musculoskeletal system. Circulation, motion, and sensation intact. Range of motion: intact in all extremities. Historical: - Allergies: 20:07 IV contrast; lg3 20:07 PENICILLINS; lg3 - PMHx: 20:07 coronary atherosclerosis; Hyperlipidemia; Hypertension; Myocardial infarction; lg3 Transient cerebral ischemia; - PSHx: 20:07 Coronary Angioplasty; Coronary artery bypass graft; umbilical hernia repair; lg3 - Immunization history:: Adult Immunizations up to date, Client reports receiving the 2nd dose of the Covid vaccine. - Social history:: Smoking status: Patient denies any tobacco usage or history of. Patient/guardian denies using alcohol, street drugs. Screenin:20 [facility] ED Fall Risk Assessment (Adult) History of falling in the last 3 months, mb9 including since admission No falls in past 3 months (0 pts) Confusion or Disorientation No (0 pts) Intoxicated or Sedated No (0 pts) Impaired Gait No (0 pts) Mobility Assist Device Used Yes (1 pt) Altered Elimination No (0 pt) Score/Fall Risk Level 0 - 2 = Low Risk Oriented to surroundings, Maintained a safe environment, Educated pt \T\ family on fall prevention, incl call for assistance when getting out of bed. Abuse screen: Denies threats or abuse. Nutritional screening: No deficits noted. Tuberculosis screening: No symptoms or risk factors identified. Assessment: 20:19 General: Appears uncomfortable, Behavior is anxious. Pain: Complains of pain in chest mb9 Pain radiates to back Pain currently is 8 out of 10 on a pain scale. Quality of pain is described as throbbing, Pain began suddenly, Is continuous. Neuro: Britt Agitation-Sedation Scale (RASS): 0 - Alert and Calm Level of Consciousness is awake, alert, obeys commands, Oriented to person, place, time, situation, Appropriate for age. Cardiovascular: Reports chest pain, shortness of breath, Heart tones S1 S2 present Patient's skin is warm and dry. Rhythm is regular. Respiratory: Reports shortness of breath Airway is patent Respiratory effort is even, unlabored, Respiratory pattern is regular, symmetrical. GI: Abdomen is round non-distended, Bowel sounds present X 4 quads. Abd is soft and non tender X 4 quads. Reports nausea. : No signs and/or symptoms were reported regarding the genitourinary system. EENT: No signs and/or symptoms were reported regarding the EENT system. Derm: Skin is pink, warm \T\ dry. Musculoskeletal: Range of motion: intact in all extremities. Vital Signs: 20:04 BP 148 / 86; Pulse 78; Resp 19 S; Temp 97.9; Pulse Ox 94% on R/A; Weight 87.54 kg (R); lg3 Height 5 ft. 11 in. (R); Pain 8/10; 22:05 BP 107 / 67; Pulse 70; Pulse Ox 96% on R/A; ap3 20:04 Body Mass Index 26.92 (87.54 kg, 180.34 cm) lg3 20:04 Pain Scale: Adult lg3 ED Course: 19:59 Patient arrived in ED. jj6 20:04 Kofi Birch MD is Attending Physician. ec2 20:07 Triage completed. lg3 20:07 Arm band placed on right wrist. lg3 20:16 Kofi Birch MD is Attending Physician. ec2 20:19 Gayle Barr RN is Primary Nurse. mb9 20:20 Placed in gown. Bed in low position. Call light in reach. Side rails up X 1. Client mb9 placed on continuous cardiac and pulse oximetry monitoring. NIBP monitoring applied. environmental monitoring technician on. 20:20 Inserted saline lock: 18 gauge in right forearm, using aseptic technique. Blood mb9 collected. 20:20 EKG done, by ED staff, reviewed by Kofi Birch MD. mb9 20:21 No provider procedures requiring assistance completed. mb9 20:29 Basic Metabolic Panel Sent. mb9 20:29 CBC with Diff Sent. mb9 20:29 Troponin HS Sent. mb9 21:00 Report given to IZABELLA eDvi. mb9 21:33 XRAY Chest (1 view) In Process Unspecified. EDMS 22:07 Kwabena Viveros MD is Hospitalizing Provider. ec2 22:32 Janet Zapata MD is Hospitalizing Provider. ec2 12/22 18:50 IV discontinued, intact, bleeding controlled, No redness/swelling at site. Pressure eh3 dressing applied. Administered Medications: 12/21 20:40 Drug: Aspirin PO Chewable Tablet 324 mg PO once; 81 mg tablets x 4 Route: PO; mb9 20:40 Drug: Diazepam IVP 5 mg IVP once Route: IVP; Site: right forearm; mb9 22:17 Follow up: Response: No adverse reaction ap3 20:53 Drug: diphenhydrAMINE IVP 25 mg IVP once Route: IVP; Site: right forearm; mb9 22:17 Follow up: Response: No adverse reaction ap3 22:17 Drug: morphine IVP or IV 4 mg IVP once over 4 mins Route: IVP; Infused Over: 4 mins; ap3 Site: right forearm; Medication: 20:21 VIS not applicable for this client. mb9 Outcome: 22:07 Decision to Hospitalize by Provider. ec2 12/22 18:49 Discharged to home ambulatory, with family, 3 Condition: stable Discharge instructions given to patient, Instructed on discharge instructions, follow up and referral plans. Demonstrated understanding of instructions, follow-up care, 18:50 Patient left the ED. eh3 Signatures: Dispatcher [employer] Shandra Baig RN RN ap3 Keyona Sullivan RN RN lg3 Rosemarie Masterson6 Linette Moreno RN RN eh3 Gayle Barr RN RN mb9 Kofi Birch MD MD ec2
--- NOTE | 2022-12-21 22:33 | P.HP ---
Certification for Inpatient Patient admitted to: Observation With expected LOS: <2 Midnights Patient will require the following post-hospital care: None Practitioner: I am a practitioner with admitting privileges, knowledge of patient current condition, hospital course, and medical plan of care. Services: Services provided to patient in accordance with Admission requirements found in Title 42 Section 412.3 of the Code of Federal Regulations Patient History Date of Service: 12/21/22 Reason for admission: chest pain History of Present Illness: 67-year-old male with a past medical history of SC, CAD, status post CABG hypertension, hyperlipidemia, TIA presents to the emergency room with chest pain. He reported symptoms started about 2 to 3 hours prior to arrival. He reports chest pain, back pain resolved with prn analgesics given in ER. Reports associated anxiety, Reports history of chronic low back pain. He denies chest pain radiation, shortness of breath, cough, dizziness, edema.BP 148 / 86; Pulse 78; Resp 19 S; Temp 97.9; Pulse Ox 94% on R/A EKG normal sinus rhythm, rate of 67, no acute ST segment elevations, nonconcerning intervals.plan to admit for chest pain. Laboratory evaluation acute kidney injury BUN 25 creatinine 1.32 unknown baseline CBC unremarkable troponin normal, chest x-ray no acute processes Allergies No Known Allergies Allergy (Unverified 08/27/15 17:54) - Past Medical/Surgical History Diabetic: No -: HTN -: HLD -: SC sp CAB, PCI -: CAB -: PCI - Social History Smoking Status: Former smoker Alcohol use: No CD- Drugs: No Caffeine use: Yes Place of Residence: Home Review of Systems 10-point ROS is otherwise unremarkable Physical Examination - Physical Exam General: Alert, In no apparent distress, Oriented x3 HEENT: Atraumatic, Normocephalic, PERRLA Neck: Supple, 2+ carotid pulse no bruit Respiratory: Clear to auscultation bilaterally, Normal air movement Cardiovascular: No edema, Normal pulses, Regular rate/rhythm Capillary refill: <2 Seconds Gastrointestinal: Normal bowel sounds, Soft and benign Musculoskeletal: No clubbing, No swelling Integumentary: No rashes, No breakdown Neurological: Normal speech, Normal strength at 5/5 x4 extr - Studies Laboratory Data (last 24 hrs) 12/21/22 12/21/22 20:29 20:29 WBC 6.90 Hgb 14.9 Hct 43.5 Plt Count 182 Sodium 140 Potassium 3.7 BUN 25 H Creatinine 1.32 H Glucose 111 H Assessment and Plan - Plan Assessment plan Chest pain rule out SC Acute kidney injury unknown baseline Prior SC, CAD, status post CABG hypertension hyperlipidemia History TIA DVT proplyaxis Assessment plan Chest pain rule out SC Prior SC, CAD, status post CABG hypertension Cardiology consult, trend troponins, BNP, As needed analgesics,antilipid, asprin BP 148 / 86; Pulse 78; Resp 19 S; Temp 97.9; Pulse Ox 94% on R/A EKG normal sinus rhythm, rate of 67, no acute ST segment elevations, nonconcerning intervals.plan to admit for chest pain. troponin normal, CBC unremarkable chest x-ray no acute processes Acute kidney injury unknown baseline BUN 25 creatinine 1.32 unknown baseline gentle IVF hyperlipidemia History TIA Resume appropriate home meds Full code N.p.o. after midnight DVT Heparin Discharge Plan: Home Plan to discharge in: 24 Hours - Advance Directives Does patient have a Living Will: No Does patient have a Durable POA for Healthcare: No - Code Status/Comfort Care Code Status: Full Code Physician Review: Patient Assessed, Agree with Above Assessment and Plan Critical Care: No Time Spent Managing Pts Care (In Minutes): 50
[2022-12-21] MEDS: HEPARIN 5000 UNIT/ML 1 ML VIAL SQ SCH (23:34)
[2022-12-21] MEDS ORDERED: NA CHLORIDE 0.9% 1,000 ML IV SCH (23:45)
[2022-12-21 23:59] VITALS: BMI 26.9
[2022-12-22] MEDS ORDERED: ONDANSETRON 4 MG/2 ML VIAL IV PRN (03:30)
[2022-12-22] MEDS: HEPARIN 5000 UNIT/ML 1 ML VIAL SQ SCH ×3 (03:42→17:00)
[2022-12-22] MEDS ORDERED: HEPARIN 5000 UNIT/ML 1 ML VIAL ONE ×2 (03:45→09:00)
[2022-12-22] MEDS ORDERED: NA CHLORIDE 0.9% 1,000 ML ONE (03:45)
[2022-12-22 06:14] LABS: Absolute Lymphocytes (CBC) 2.2 K/uL (0.7-4.9); Hematocrit 40.2 % (39.6-49.0); Lymphocytes % 40.5 % (15.3-44.8); MCV 94.4 fL (80-100); MPV 8.8 fL (7.6-11.3); Platelets 171 thou/uL (152-406); RBC Red Blood Cell Count 4.26 M/uL (4.33-5.43)
[2022-12-22 06:30] LABS: Potassium 3.5 mEq/L (3.5-5.1)
[2022-12-22] MEDS ORDERED: REGADENOSON 0.4 MG/5 ML SYR IV ONE (08:12)
[2022-12-22] MEDS ORDERED: ASPIRIN 81 MG CHEWABLE TABLET ONE (09:00)
[2022-12-22] MEDS ORDERED: ASPIRIN 325 MG TAB PO SCH (09:00)
[2022-12-22] MEDS ORDERED: ASPIRIN 325 MG TAB ONE (09:01)
[2022-12-22] MEDS ORDERED: HYDROCODONE/APAP 5/325 MG TAB PO ONE (11:56)
--- NOTE | 2022-12-22 12:39 | RAD REPORT ---
EXAM DESCRIPTION: NM - Rest Stress Cardiac Imaging - 12/22/2022 12:18 pm CLINICAL HISTORY: Chest pain. COMPARISON: None. TECHNIQUE: The patient was administered 10.3 mCi of Tc 99m Sestamibi prior to resting SPECT imaging of the heart. The patient was then administered 29.6 MCi of Tc 99m Sestamibi following exercise or ph armacologic stress. Multiplanar SPECT images were reviewed. FINDINGS: Small to moderate area of diminished radiotracer uptake involves the inferior apical left ventricular myocardium on stress images. This demonstrates partial reaccumulation of radiotracer on rest images. The left ventricular ejection fraction equals 53% IMPRESSION: Small to moderate partially with reversible perfusion defect involving the inferior api tenzin left ventricular myocardium may indicated infarct with adelaide-infarct ischemia
[2022-12-22] MEDS ORDERED: KCL 20 MEQ/100 mL IVPB 100 ML IV ONE (12:41)
[2022-12-22] MEDS ORDERED: HYDROCODONE/APAP 5/325 MG TAB ONE (12:41)
--- NOTE | 2022-12-22 14:37 | ECHO ---
HEIGHT: 5 ft 11 in WEIGHT: 192 lb 15.883 oz DATE OF STUDY: 12/22/[address]: Janet Zapata MD 2-DIMENSIONAL: YES M.MODE: YES DOPPLER: YES COLOR FLOW: YES TDS: PORTABLE: YES DEFINITY: BUBBLE STUDY: DIAGNOSIS: CHEST PAIN, RULE OUT ACUTE CORONARY SYNDROME CARDIAC HISTORY: CATHERIZATION: YES SURGERY: YES PROSTHETIC VALVE: NO PACEMAKER: NO MEASUREMENTS (cm) DIASTOLIC (NORMALS) SYSTOLIC (NORMALS) IVSd 1.1 (0.6-1.2) LA Diam 3.1 (1.9-4.0) LVEF 55% LVIDd 3.7 (3.5-5.7) LVIDs 2.7 (2.0-3.5) %FS 28% LVPWd 1.2 (0.6-1.2) Ao Diam 3.0 (2.0-3.7) 2 DIMENSIONAL ASSESSMENT: RIGHT ATRIUM: NORMAL LEFT ATRIUM: NORMAL RIGHT VENTRICLE: NORMAL LEFT VENTRICLE: NORMAL TRICUSPID VALVE: NORMAL MITRAL VALVE: NORMAL PULMONIC VALVE: NORMAL AORTIC VALVE: NORMAL PERICARDIAL EFFUSION: NONE AORTIC ROOT: NORMAL LEFT VENTRICULAR WALL MOTION: NORMAL DOPPLER/COLOR FLOW: MILD MITRAL REGURGITATION COMMENTS: 1. NORMAL LEFT VENTRICULAR EJECTION FRACTION 55-60% 2. NORMAL WALL MOTION 3. NORMAL DIASTIOLIC FUNCTION 4. MILD MITRAL REGURGITATION TECHNOLOGIST: SHENA CROSS
--- NOTE | 2022-12-22 14:41 | EKG ---
Test Date: 2022-12-21 Test Time: 20:17:54 [employer]: VALENTINE MEASUREMENT RESULTS: Intervals: Rate: 67 GA: 126 QRSD: 86 QT: 392 QTc: 414 Fleming: P: 6 GA: 126 QRS: 54 T: 56 INTERPRETIVE STATEMENTS: Normal sinus rhythm Inferior infarct, age undetermined Abnormal ECG Compared to ECG 10/19/2022 20:05:14 Myocardial infarct finding now present Electronically Signed On 12-22-22 14:39:35 CDT by Nishant Perez
--- NOTE | 2022-12-22 14:50 | TREADPHA ---
DX: CHEST PAIN Date of Study: 12/22/2022 Ht: 5' 11 " Wt: 192 lb 15.883 oz Consulting Physician: ERIC MEDICATIONS: YURI ASPIRIN, HEPARIN, ZOFRAN, CRESTOR HISTORY: 67 YEAR OLD MALE WITH COMPLAINTS OF CHEST PAIN. HISTORY OF HYPERTENSION, CORONARY ARTERY BYPASS GRAFT TIMES FOUR, STROKE, HYPERLIPIDEMIA. NON SMOKER, QUIT IN 2017, NON DRINKER. PHYSICIAL EXAMINATION: RESTING B.P.: 1303/70 RESTING H.R.: 50 RESTING EKG: NORMAL SINUS RHYTHM PROTOCOL: PHARMACOLOGIC EXERCISE TIME: 3:30 B.P. AT PEAK STRESS: 100/67 IMPRESSION: LEXISCAN INJECTED, FOLLOWED BY CARDIOLITE PER PROTOCOL. SEE NUCLEAR MEDICINE REPORT. NO SUPRAVENTRICULAR TACHYCARDIA, VENTRICULAR TACHYCARDIA, PREMATURE ATRIAL COMPLEXES, PREMATURE VENTRICULAR COMPLEXES. PATIENT REPORTS CHEST TIGHTNESS. SEVEN OUT OF TEN PRIOR WITH NO CHANGE DURING PROCEDURE. NO ELECTROCARDIOGRAM CHANGES WITH LEXISCAN.
--- NOTE | 2022-12-22 17:30 | CON ---
Date of Consultation: 12/22/2022 Reason For Consultation: Chest pain. History Of Present Illness: A 67-year-old male with history of coronary artery disease, status post CABG; hypertension; dyslipidemia; TIA, presented to the emergency room with chest pain that is sharp. No radiation not related to exertion. He has been chest pain free since admission. Feels well now . Past Medical History: As outlined above in HPI. Medications: Refer consultation sheet for detailed list. Allergies: NO KNOWN DRUG ALLERGIES. Family History: No premature coronary artery disease or cancer. Social History: He is an ex-smoker. Does not drink, use any drugs. Review of Systems: All systems reviewed are negative except as mentioned in HPI. Physical Examination: Vital Signs: Reviewed. Head and Neck: Pupils are equal, reactive to light. Intact eye movements. No JVD. No cervical lym phadenopathy. Neck: Supple. Thyroid is not enlarged. Lungs: Clear to auscultation bilaterally. No rhonchi, wheezing, or crackles. No accessory muscle u se. Heart: Regular. No extra sounds. Abdomen: Soft, nontender. Bowel sounds positive. No organomegaly. No masses or hernia. No rigidi ty or rebound. Extremities: No clubbing, cyanosis. Intact pulses. Skin: No rash. Neurologic: Alert, awake, oriented x3. No focal deficits appreciated. Lymph Nodes: No cervical or axillary lymphadenopathy. Investigations: BUN 21, creatinine 0.92. Cardiac enzymes x4 are negative. Hemoglobin 13.6. Assessment/recommendations: 1.Chest pain. It is atypical. Cardiac enzymes are negative. Patient can be released. Follow up w ricardo belcher as an outpatient for exercise stress test. 2.Dyslipidemia. Continue statin. 3.Hypertension. Blood pressure is controlled. SR/MODL Voice ID: [id number] Report ID: [id number]
[2022-12-22 19:08] VITALS: TEMP 97.9
[2022-12-22 19:09] VITALS: BP 107/67; O2SAT 96
[2022-12-22] MEDS ORDERED: ROSUVASTATIN 10 MG TAB PO SCH (21:00)
== END 2022-12-22 18:35 | disposition home or self-care (01) ==
LOC: ER 19:56 → ERHOLD 23:07
PROVIDERS: ADMIT Hospitalist; ATTEND Hospitalist
DX: R07.89 Other chest pain (principal); I25.10 Atherosclerotic heart disease of native coronary artery without angina pectoris; I25.2 Old myocardial infarction; I10 Essential (primary) hypertension; E78.5 Hyperlipidemia, unspecified; F41.9 Anxiety disorder, unspecified; M54.50 Low back pain, unspecified; N17.9 Acute kidney failure, unspecified; Z95.1 Presence of aortocoronary bypass graft; Z86.73 Personal history of transient ischemic attack (TIA), and cerebral infarction without residual deficits
CPT/HCPCS: 93005; 93017; 93306; 85025 ×2; 80048 ×2; 36415; 83735; 80061; 84484 ×3; 83880; 71045; 78452; 96375; 96374; 99285; J1644 ×2; J3480; Q0162; J2785; J1200; J3360; J7030; A9500; G0378

== ENCOUNTER 2023-01-15 18:35 | Inpatient (IN) | payer OTHER ==
[2023-01-15 19:02] LABS: Protime INR 1.02
[2023-01-15 19:03] LABS: Hematocrit 44.4 % (39.6-49.0); MCV 95.9 fL (80-100); MPV 8.5 fL (7.6-11.3); Platelets 221 thou/uL (152-406); RBC Red Blood Cell Count 4.63 M/uL (4.33-5.43)
--- OUTSIDE RECORDS SUMMARY | 2023-01-15 19:06 | XMS REPORT | Continuity of Care Document ---
:1955 Author Organization [facility] t Address [address] [facility] [address] [place] [address] Care Team Providers Name Role Phone Sharpless Primary Care Physician Jamal Red Attending Clinician Unavailable PABLO ALLEN Attending Clinician Unavailable VERITO BAILEY Attending Clinician Unavailable Pablo Allen DO Attending Clinician LAB90 Attending Clinician Unavailable KEYONA SUAZO Attending Clinician Unavailable KEYONA SUAZO Attending Clinician Unavailable Doctor Unassigned, Anthem Attending Clinician Unavailable JD HINES Attending Clinician Unavailable Sami RUSSO Mahesheva Don Attending Clinician LUCITA CARBAJAL Attending Clinician Unavailable Tin KNUTSON, Jd Attending Clinician Denny Del Real Primary Attending Clinician Unavailable Amrik ERICKSON, Arsen Attending Clinician ARSEN DIXON Attending Clinician Unavailable Sofia Gatica Attending Clinician [phone] Salome KNUTSON, Edin Ovalles Attending Clinician [...] Expiration Date Eva FERREIRA MA DUAL 7 [id number] 2022 COMPLETE CAP(HMO 00:00:00 D-SNP OA) [employer] MEDICARE 7 [id number] 2021 [id number] GOLD 00:00:00 PLUS 2021 HUMANA 3 [id number] 2021 00:00:00 MEDICAID OF [place] [id number] 2021 00:00:00 [place] [facility]IMARY [id number] 2019 CARE 00:00:00 Problems Condition Condition Condition [...] TIS ITIS 6-13 09:57:00 l Active 00:00: [place] 08/15/2018 00 [facility] ABDOMINAL ABDOMINAL Diagnosis Active 2018-08-16 Memoria PAIN PAIN 6-13 02:35:00 l Active 00:00: [place] 08/15/2018 00 [facility] BLAYNE-SEROMA BLAYNE-SEROMA Diagnosis Active 2018-06-21 Memoria Active 4-16 10:59:00 l 06/18/2018 00:00: Arsenio freedman [address] CHEST PAIN CHEST Diagnosis Active 2018-06-03 Memoria PAIN 3-31 15:02:00 l Active 00:00: [place] 06/02/2018 00 [facility] STERNAL STERNAL Diagnosis Active 2018-05-19 Memoria OSTEOMYELI OSTEOMYELI 3-07 06:57:00 l TIS TIS 00:00: [place] Active 00 05/09/2018 [facility] M86.61 - M86.61 - Diagnosis Active 2019-0 2018-04-08 Memoria OTHER OTHER 2-01 13:48:00 l CHRONIC CHRONIC 00:01: [place] OSTEOMYELI OSTEOMYELI 00 TIS, S TIS, S Active 04/05/2018 [facility] SHORTNESS SHORTNESS Diagnosis Active 2017-032018-02-28 Memoria OF BREATH OF BREATH 2 03:46:00 l Active 00:00: [place] 02/27/2018 00 [facility] ACUTE ACUTE Diagnosis Active 2017-032018-03-07 Mem oria EXACERBATI EXACERBATI 04-30 22:14:00 l ON OF ON OF 00:00: [place] CONGESTIVE CONGESTIVE 00 HEART F HEART F Active 02/27/2018 [facility] DIFFICULTY DIFFICULT Diagnosis Active 2017-032018-02-27 Memoria BREATHING Y 04-30 23:09:00 l BREATHING 00:00: [place] Active 00 02/27/2018 [facility] [place] SOB, SOB, Diagnosis Active 2017-032018-02-28 Mem oria TACHYCARDI TACHYCARDI 04-16 22:16:00 l A A Active 00:00: [place] 02/13/2018 00 [facility] Dyspnea Dyspnea Disease Active 2017-03 Univers 1-12 ity of 00:00: [place] [address] Medical Branch Other Other Disease Active 2017-03 Univers chest pain chest pain 1-08 it y of 00:00: [place] [address] Medical Branch Cellulitis Cellulitis Disease Active 2017-03 U nivers of chest of chest 1-07 ity of wall wall 00:00: [place] [address] Medical Branch Elevated Elevated Disease Active 2017-03 Unive rs total total 0-10 ity of protein protein 00:00: [place] [address] Medical Branch GELY GELY Disease Active Univers (obstructi (obstructi 9-17 it y of ve sleep ve sleep 00:00: [place] apnea) apnea) 00 Medical Branch Acute on Acute on Disease Active Unive rs chronic chronic 9-17 [place] of diastolic diastolic [place] congest[place] congestive 00 Me dical heart heart Branch failure failure Weakness Weakness Disease Active Unive rs 9-16 ity of 00:00: [place] [address] Medical Branch SOB SOB Disease Active Univers [...] disease of disease of 00:00: automatic [place] [facility] [place] 00 ally from Medical artery of artery of request [facility] [place] for heart with heart with surgery stable stable [id number] angina angina pectoris pectoris Coronary Coronary Disease Active Overview: Un jody artery artery 8-30 Formattin ity of disease of disease of 00:00: g of this [place] 00 note Medical artery of artery of might be Br anch [place] different heart with heart with from the stable stable original. angina angina Added pectoris pectoris automatic ally from request for surgery [id number] Coronary Coronary Disease Active Overview: Un jody artery artery 8-24 Added ity of disease disease 00:00: automatic [place] involving involving 00 ally from M edical [place] request Branch coronary coronary for artery of artery of surgery [place] [id number] heart with heart with other form other form of angina of angina pectoris pectoris Coronary Coronary Disease Active Overview: Un jody artery artery 8-24 Formattin ity of disease disease 00:00: g of this [place] involving involving 00 note Medi tenzin [place] might be Branch coronary coronary different artery of artery of from the [place] original. heart with heart with Added other form other form automatic of angina of angina ally from pectoris pectoris request for surgery [id number] Umbilical Umbilical Disease Active Overview: Univers hernia hernia 6-05 Formattin ity of without without 00:00: g of this [place] obstructio obstructio 00 note Me dical n and n and might be Branch without without different gangrene gangrene from the original. Added automatic ally from request for surgery [id number] Prediabete Prediabete Disease Active U nivers s s 4-16 ity of 00:00: [place] 00 Medical Branch Obesity Obesity Disease Active Univers (BMI (BMI 4-16 ity of 30.0-34.9) 30.0-34.9) [place] Dizziness Dizziness Disease Active Uni vers 4-10 ity of 00:00: [place] 00 Medical Branch Chest Chest Disease Active Univers tightness tightness 4-10 ity of 00:00: [place] 00 Medical Branch History of History of [...] use 4-10 ity of disorder disorder 00:00: [place] 00 Medical Branch Sleep Sleep Disease Active Univers disorder disorder 4-10 ity of breathing breathing 00:00[place] 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 (dyspnea (dyspnea 4-10 ity of on on 00:00: [place] exertion) exertion) 00 [facility] Branch CVA CVA Disease Active [facility] [...] of lung field lung field 9 [facility] Infection Infection Problem 2018-10-24 Memoria following following 11:25:49 l a a [place] procedure, procedure, other other surgical surgical site, site, initial initial encounter encounter 10/24/2018 [facility] Localized Localized Problem 2018-10-24 Memoria enlarged enlarged 11:25:49 l lymph lymph [place] nodes nodes 10/24/2018 [facility] Other Other Problem 2018-10-24 Memor ia specified specified 11:25:49 l postproced postproced He rmladi ural ural states states 10/24/2018 [facility] Presence Presence Problem 2018-10-24 Memoria of of 11:25:49 l aortocoron aortocoron He rmann juana bypass juana bypass graft graft 10/24/2018 [facility] Unspecifie Unspecifi Problem 2018-09-18 Memoria d severe ed severe 14:04:56 l protein-ca protein-ca He rmann fely fely malnutriti malnutriti on on 09/18/2018 [facility] Acute Acute Problem 2018-09-10 Memor ia posthemorr posthemorr 14:31:25 l hagic hagic [place] anemia anemia 09/10/2018 [facility] Osteomyeli Osteomyel Problem 2018-09-18 Memoria tis, itis, 14:04:56 l unspecifie unspecifie He rmann d d 09/18/2018 [facility] 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-18 Memoria rotic erotic 14:04:56 l heart heart [place] disease of disease of [place] coronary coronary artery artery without without angina angina pectoris pectoris 09/18/2018 [facility] Essential Essential Problem 2018-09-10 Memoria (primary) (primary) 14:31:25 l hypertensi hypertensi He rmann on on 09/10/2018 [facility] Hyperlipid Hyperlipi Problem 2018-09-18 Memoria emia demia, 14:04:56 l unspecifie unspecifie He rmann d d 09/18/2018 [facility] Personal Personal Problem 2018-09-18 Memoria history of history of 14:04:56 l nicotine nicotine Arsenio n dependence dependence 9 [facility] Major Major Problem 2018-09-10 Memor ia depressive depressive 14:31:25 l disorder, disorder, Herm ladi single single episode, episode, unspecifie unspecifie d d 09/10/2018 [facility] Anxiety Anxiety Problem 2018-09-10 M emoria disorder, disorder, 14:31:25 l unspecifie unspecifie He rmann d d 09/10/2018 [facility] Insomnia, Insomnia, Problem 2018-09-10 Memoria unspecifie unspecifie 14:31:25 l d d [place] 09/10/2018 [facility] Ischemic Ischemic Problem 2018-09-18 Memoria cardiomyop cardiomyop 14:04:56 l athy athy [place] 09/18/2018 [facility] Constipati Constipat Problem 2018-09-10 Memoria on, ion, 14:31:25 l unspecifie unspecifie He rmann d d 09/10/2018 [facility] Radiograph Radiograp Problem 2018-09-18 Memoria ic dye hic dye 14:04:56 l allergy allergy [place] status status 09/18/[address] [facility] Fluid Fluid Problem 2018-09-17 Kuldeep teto overload, overload, 12:21:37 l unspecifie unspecifie He rmann d d 09/17/2018 [facility] Erythemato Erythemat Problem 2018-09-17 Memoria us ous 12:21:37 l condition, condition, He rmann unspecifie unspecifie d d 09/17/2018 [facility] Allergy Allergy Problem 2018-09-17 Me moria status to status to 12:21:37 l penicillin penicillin He rmann 09/17/2018 [facility] Other long Other Problem 2018-09-17 M emoria term fdc 12:21:37 l (current) (current) Herm ladi drug drug therapy therapy 09/17/2018 [facility] Family Family Problem 2018-09-17 Kuldeep teto history of history of 12:21:37 l ischemic ischemic Arsenio freedman heart heart disease disease and other and other diseases diseases of the of the commercial credit lead commercial credit lead y 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 y 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 09/17/2018 [facility] Shortness Shortness Problem 2018-09-18 Memoria of breath of breath 14:04:56 l 09/18/2018 Arsenio freedman [facility] Atelectasi Atelectas Problem 2018-09-18 Memoria s is 14:04:56 l 09/18/2018 Arsenio freedman [facility] Cellulitis Celluliti Problem 2018-09-18 Memoria of chest s of chest 14:04:56 l wall wall [place] 09/18/2018 [facility] Acute on Acute on Problem 2018-09-18 Memoria chronic chronic 14:04:56 l combined combined Arsenio n systolic systolic (congestiv (congestiv e) and e) and diastolic diastolic (congestiv (congestiv e) heart e) heart failure failure 09/18/2018 [facility] Frequency Frequency Problem 2018-09-18 Memoria of of 14:04:56 l micturitio micturitio He rmann n n 09/18/2018 [facility] Localized Localized Problem 2018-09-18 Memoria edema edema 14:04:56 l 09/18/2018 Arsenio freedman [facility] Body mass Body mass Problem 2018-09-18 Memoria index index 14:04:56 l (BMI) (BMI) [place] 27.0-27.9, 27.0-27.9, adult adult 09/18/2018 [facility] Coronary Coronary Problem Active 2018-10-24 Memoria arterioscl arterioscl 11:25:49 l erosis erosis [place] (disorder) (disorder) Active Problem 10/24/2018 [facility], [facility] ILLNESS, ILLNESS, Diagnosis Active 2018-05-19 Memoria UNSPECIFIE UNSPECIFIE 06:57:00 l D D Active [place] [facility] POSTPROC POSTPROC Diagnosis Active 2018-06-03 Memoria SEROMA OF SEROMA OF 15:02:00 l SKIN, SKIN, [place] SUBCU SUBCU FOLLOWING FOLLOWING Active [facility] ACUTE ACUTE Diagnosis Active 2018-08-17 Mem oria CHOLECYSTI CHOLECYSTI 09:57:00 l TIS TIS Active Arsenio freedman [facility] HEART HEART Diagnosis Active 2018-03-07 Mem oria FAILURE, FAILURE, 22:14:00 l UNSPECIFIE UNSPECIFIE He rmladi D D Active [facility] History of Past Illness Condition Condition Condition Status Onset Resolution Last Treating Co mments Source Name Details Category Date Date Treatment Clinician Date Other Other Problem 2018-2018-10-24 2018-10-24 M emoria acute acute 2-06 11:25:49 11:25:49 l osteomyeli osteomyeli 06:03: He antonio tis, other tis, other 01 site site 04/10/2018 10/24/2018 Z[facility]RA [facility] Hypertensi Hypertens Problem 2018-2018-09-18 2018-09-18 Memoria ve heart shelia heart 06-26 14:04:56 14:04:56 l disease disease 05:04: [place] with heart with heart 24 failure failure 06/26/2018 09/18/2018 [facility] Allergies, Adverse Reactions, Alerts Allergy Allergy Status Severity Reaction(s) Onset Inactive Treating Comm ents Source Name Type Date Date Clinician Penicill DA Active [facility] ins 06-24 Clear 00:00: Merrill 00 [facility] iodine DA Active [facility] 06-24 Clear 00:00: Merrill 00 [facility] Iodine Propensi Active Itching Kaela ty [...] Date Stop Date Source Natural father Stroke [facility] Natural father Diabetes [facility] Natural father Hypertension [facility] Natural mother Diabetes [facility] Natural mother Hypertension [facility] Social History Social Habit Start Date Stop Date Quantity Comments Source History SDOH Kaela tavera Alcohol Frequency History SDOH Kaela tavera Alcohol Std Drinks History SDOH Kaela tavera Alcohol Binge History of tobacco Cigarette Smoker [facility] Exposure to Not sure [facility] SARS-CoV-2 (event) [facility] Sexual orientation [facility] Tobacco use and 2021-05-03 2021-05-03 Smokeless Kaela schaffer exposure 00:00:00 00:00:00 tobacco non-user Alcohol Comment 2021-05-03 2021-05-03 rarely Kaela shirleyjessica 00:00:00 00:00:00 Education 2021-05-03 2021-05-03 15 Kaela Johnson 00:00:00 00:00:00 Cigarette 2021-05-03 2021-05-03 Kaela Alex pack-years 00:00:00 00:00:00 Social History 2018-08-16 2018-08-16 Sonu Cintia mike 07:52:22 07:52:22 Alcohol intake 2015-08-28 2015-08-28 [facility]:00 non-drinker of Medical Ce nter alcohol (finding) Cigarettes smoked 2015-08-27 2015-08-27 [facility] current (pack per 00:00:00 00:00:00 [facility] day) - Reported Sex Ass[birth year] At [birth year] [facility] 00:00:00 00:00:00 [facility] Smoking Status Start Date Stop Date Source Ex-smoker 2021-05-03 00:00:00 2021-05-03 00:00:00 Kaela echols Smokes tobacco daily 2015-08-27 00:00:00 [facility] Medications Ordered Filled Start Stop Current Ordering Indication Dosage Frequency Signature Comments Components Source Medication Medication Date Date Medication? Clinician (SIG) Name Name Lisinopril 2022-0 2022- No 10mg Take 10 mg Kaela 10 MG oral 3-30 03-30 by mouth Seyb old Tablet 10:39: 00:00 daily 21 :00 Tramadol 2021-0 Yes [id number] 50mg QD Take 1 Ke lsey HCl 50 MG 3-30 tablet (50 Seyb old oral Tablet 00:00: mg total) 00 by mouth daily as needed for pain Lisinopril Yes 10mg Take 10 mg K elsey 10 MG oral 3-01 by mouth Seybo ld Tablet 14:00: daily 07 Escitalopra 0 Yes [id number] 10mg Take 1 Kaela m Oxalate 3-01 tablet (10 Seyb old (Lexapro) 00:00: mg total) 10 MG oral 00 by mouth Tablet daily Aspirin 81 0 Yes [id number] 81mg Take 1 Kaela MG oral 3-01 tablet (81 Seybol d Chewable 00:00: mg total) Tablet 00 by mouth daily Tramadol 2021-0 Yes [id number] 50mg Q24H Take 1 Ke lsey HCl 50 MG 3-01 tablet (50 Seyb old oral Tablet 00:00: mg total) 00 by mouth daily as needed for pain Escitalopra Yes [id number] 10mg Take 1 Kaela m Oxalate 3-01 tablet (10 Seyb old (Lexapro) 00:00: mg total) 10 MG oral 00 by mouth Tablet daily Aspirin 81 0 Yes [id number] 81mg Take 1 Kaela MG oral 3-01 tablet (81 Seybol d Chewable 00:00: mg total) Tablet 00 by mouth daily Tramadol 0 2021- No [id number] 50mg QD Take 1 K elsey HCl 50 MG 3-01 03-30 tablet (50 Sey bold oral Tablet 00:00: 00:00 mg total) 00 :00 by mouth daily as needed for pain lisinopriL 2019-03 Yes 10mg Take 10 mg U nivers 10 mg 1-09 by mouth ity of tablet 19:16: daily. [address] lisinopriL 2019-03 Yes 10mg Take 10 mg U nivers 10 mg 1-09 by mouth ity of tablet 19:16: daily. [address] lisinopriL 2019-03 Yes 10mg Take 10 mg U nivers 10 mg 1-09 by mouth ity of tablet 19:16: daily. [place] [address] Medical Branch lisinopriL 2019- Yes 10mg Take 10 mg U nivers 10 mg 1-09 by mouth ity of tablet 19:16: daily. [place] [address] Medical Branch lisinopriL 2019-03 Yes 10mg Take 10 mg U nivers 10 mg 1-09 by mouth ity of tablet 19:16: daily. [place] [address] Medical Branch lisinopriL 2019-03 Yes 10mg Take 10 mg U nivers 10 mg 1-09 by mouth ity of tablet 13:16: daily. [place] [address] Medical Branch atorvastati 2019-03 Yes [id number] 40mg Take 1 Univers n 40 mg 1-09 tablet by ity of tablet 00:00: mouth [place] 00 daily. Medical Branch aspirin 81 2019-03 Yes [id number] 81mg Take 1 Univers mg EC 1-09 tablet by ity of tablet 00:00: mouth [place] 00 daily. Medical Branch atorvastati 2019-03 Yes [id number] 40mg Take 1 Univers n 40 mg 1-09 tablet by ity of tablet 00:00: mouth [place] 00 daily. Medical Branch aspirin 81 2019-03 Yes [id number] 81mg Take 1 Univers mg EC 1-09 tablet by ity of tablet 00:00: mouth [place] 00 daily. Medical Branch atorvastati 2019-03 Yes [id number] 40mg Take 1 Univers n 40 mg 1-09 tablet by ity of tablet 00:00: mouth [place] 00 daily. Medical Branch aspirin 81 2019-03 Yes [id number] 81mg Take 1 Univers mg EC 1-09 tablet by ity of tablet 00:00: mouth [place] 00 daily. Medical Branch atorvastati 2019-03 Yes [id number] 40mg Take 1 Univers n 40 mg 1-09 tablet by ity of tablet 00:00: mouth [place] 00 daily. Medical Branch aspirin 81 2019-03 Yes [id number] 81mg Take 1 Univers mg EC 1-09 tablet by ity of tablet 00:00: mouth [place] 00 daily. Medical Branch atorvastati 2019-03 Yes [id number] 40mg Take 1 Univers n 40 mg 1-09 tablet by ity of tablet 00:00: mouth [place] 00 daily. Medical Branch aspirin 81 2019-03 Yes [id number] 81mg Take 1 Univers mg EC 1-09 tablet by ity of tablet 00:00: mouth [place] 00 daily. Medical Branch atorvastati 2020-1 Yes [id number] 40mg Take 1 Univers n 40 mg 1-09 tablet by ity of tablet 00:00: mouth [place] 00 daily. Medical Branch aspirin 81 2020-1 Yes [id number] 81mg Take 1 Univers mg EC 1-09 tablet by ity of tablet 00:00: mouth [place] 00 daily. Medical Branch metoprolol 2020-0 Yes [id number] 25mg Take 1 U nivers succinate 9-10 tablet by ity o f XL 25 mg 24 00:00: mouth [place] hr tablet 00 daily. Medical Branch traZODone 2020-0 Yes [id number] 50mg Take 1 Un jody 50 mg 9-10 tablet by ity of tablet 00:00: mouth at [place] 00 bedtime. Medical Branch cyclobenzap 2019-0 Yes [id number] 10mg Take 1 Univers rine 10 mg 9-10 tablet by ity of tablet 00:00: mouth 3 00 (three) Medical times Branch daily as needed for Muscle Spasms. naproxen 2020-0 Yes [id number] 500mg Take 1 U nivers 500 mg 9-10 tablet by ity of tablet 00:00: mouth 2 00 (two) Medical times Branch daily with meals. buPROPion 2020-0 Yes [id number] 150mg Take 1 U nivers SR 9-10 tablet by ity of (WELLBUTRIN 00:00: mouth 2 Oni as SR) 150 mg 00 (two) Medical SR tablet times Branch daily. metoprolol 2020-0 Yes [id number] 25mg Take 1 U nivers succinate 9-10 tablet by ity o f XL 25 mg 24 00:00: mouth [place] hr tablet 00 daily. Medical Branch traZODone 2020-0 Yes [id number] 50mg Take 1 Un jody 50 mg 9-10 tablet by ity of tablet 00:00: mouth at [place] 00 bedtime. Medical Branch cyclobenzap 2020-0 Yes [id number] 10mg Take 1 Univers rine 10 mg 9-10 tablet by ity of tablet 00:00: mouth 3 [place] 00 (three) Medical times Branch daily as needed for Muscle Spasms. naproxen 2020-0 Yes [id number] 500mg Take 1 U nivers 500 mg 9-10 tablet by ity of tablet 00:00: mouth 2 [place] 00 (two) Medical times Branch daily with meals. buPROPion 2020-0 Yes [id number] 150mg Take 1 U nivers SR 9-10 tablet by ity of (WELLBUTRIN 00:00: mouth 2 Oni as SR) 150 mg 00 (two) Medical SR tablet times Branch daily. metoprolol 2020-0 Yes [id number] 25mg Take 1 U nivers succinate 9-10 tablet by ity o f XL 25 mg 24 00:00: mouth [place] hr tablet 00 daily. Medical Branch traZODone 2020-0 Yes [id number] 50mg Take 1 Un jody 50 mg 9-10 tablet by ity of tablet 00:00: mouth at [place] 00 bedtime. Medical Branch cyclobenzap 2020-0 Yes [id number] 10mg Take 1 Univers rine 10 mg 9-10 tablet by ity of tablet 00:00: mouth 3 (three) Medical times Branch daily as needed for Muscle Spasms. naproxen 2020-0 Yes [id number] 500mg Take 1 U nivers 500 mg 9-10 tablet by ity of tablet 00:00: mouth 2 00 (two) Medical times Branch daily with meals. buPROPion 2020-0 Yes [id number] 150mg Take 1 U nivers SR 9-10 tablet by ity of (WELLBUTRIN 00:00: mouth 2 Oni as SR) 150 mg 00 (two) Medical SR tablet times Branch daily. traZODone 2020-0 Yes [id number] 50mg Take 1 Un jody 50 mg 9-10 tablet by ity of tablet 00:00: mouth at [place] 00 bedtime. Medical Branch cyclobenzap 2020-0 Yes [id number] 10mg Take 1 Univers rine 10 mg 9-10 tablet by ity of tablet 00:00: mouth 3 [place] (three) Medical times Branch daily as needed for Muscle Spasms. traZODone 2020-0 Yes [id number] 50mg Take 1 Un jody 50 mg 9-10 tablet by ity of tablet 00:00: mouth at [place] 00 bedtime. Medical Branch cyclobenzap 2020-0 Yes [id number] 10mg Take 1 Univers rine 10 mg 9-10 tablet by ity of tablet 00:00: mouth 3 (three) Medical times Branch daily as needed for Muscle Spasms. traZODone 2020-0 Yes [id number] 50mg Take 1 Un jody 50 mg 9-10 tablet by ity of tablet 00:00: mouth at [place] 00 bedtime. Medical Branch cyclobenzap 2020-0 Yes [id number] 10mg Take 1 Univers rine 10 mg 9-10 tablet by ity of tablet 00:00: mouth 3 (three) Medical times Branch daily as needed for Muscle Spasms. traZODone 2020-0 Yes [id number] 50mg Take 1 Un jody 50 mg 9-10 tablet by ity of tablet 00:00: mouth at [place] 00 bedtime. Medical Branch cyclobenzap 2020-0 Yes [id number] 10mg Take 1 Univers rine 10 mg 9-10 tablet by ity of tablet 00:00: mouth 3 (three) Medical times Branch daily as needed for Muscle Spasms. traZODone 2020-0 Yes [id number] 50mg Take 1 Un jody 50 mg 9-10 tablet by ity of tablet 00:00: mouth at [place] 00 bedtime. Medical Branch cyclobenzap 2019-0 Yes [id number] 10mg Take 1 Univers rine 10 mg 9-10 tablet by ity of tablet 00:00: mouth 3 [place] (three) Medical times Branch daily as needed for Muscle Spasms. traZODone 2020-0 Yes [id number] 50mg Take 1 Un jody 50 mg 9-10 tablet by ity of tablet 00:00: mouth at [place] bedtime. Medical Branch cyclobenzap 2019-0 Yes [id number] 10mg Take 1 Univers rine 10 mg 9-10 tablet by ity of tablet 00:00: mouth 3 [place] (three) Medical times Branch daily as needed for Muscle Spasms. metoprolol 2019-0 Yes [id number] 25mg Take 1 U nivers succinate 9-10 tablet by ity o f XL 25 mg 24 00:00: mouth [place] hr tablet 00 daily. [facility] traZODone 2020-0 Yes [id number] 50mg Take 1 Un jody 50 mg 9-10 tablet by ity of tablet 00:00: mouth at [place] 00 bedtime. Medical [facility] cyclobenzap 2019-0 Yes [id number] 10mg Take 1 [facility] rine 10 mg 9-10 tablet by ity of tablet 00:00: mouth 3 [place] 00 (three) Medical times Branch daily as needed for Muscle Spasms. naproxen 2019-0 Yes [id number] 500mg Take 1 U nivers 500 mg 9-10 tablet by ity of tablet 00:00: mouth 2 [place] 00 (two) Medical times Branch daily with meals. buPROPion 2020-0 Yes [id number] 150mg Take 1 U nivers SR 9-10 tablet by ity of (WELLBUTRIN 00:00: mouth 2 [place] SR) 150 mg 00 (two) Medical SR tablet times Branch daily. metoprolol 2020-0 Yes [id number] 25mg Take 1 U nivers succinate 9-10 tablet by ity o f XL 25 mg 24 00:00: mouth [place] hr tablet 00 daily. [facility] traZODone 2020-0 Yes [id number] 50mg Take 1 Un jody 50 mg 9-10 tablet by ity of tablet 00:00: mouth at [place] 00 bedtime. [facility] cyclobenzap 2019-0 Yes [id number] 10mg Take 1 [facility] rine 10 mg 9-10 tablet by ity of tablet 00:00: mouth 3 [place] 00 (three) Medical times Branch daily as needed for Muscle Spasms. naproxen 2019-0 Yes [id number] 500mg Take 1 U nivers 500 mg 9-10 tablet by ity of tablet 00:00: mouth 2 [place] 00 (two) Medical times Branch daily with meals. buPROPion 2020-0 Yes [id number] 150mg Take 1 U nivers SR 9-10 tablet by ity of (WELLBUTRIN 00:00: mouth 2 [place] SR) 150 mg 00 (two) Medical SR tablet times Branch daily. metoprolol 2019-0 2020- No [id number] 25mg Take 1 [facility] succinate 9-10 11-09 tablet by ity of XL 25 mg 24 00:00: 00:[place] tablet 00 :00 daily. [facility] naproxen 2019-0 2020- No [id number] 500mg Take 1 [facility] 500 mg 9-10 11-09 tablet by ity of tablet 00:00: 00:00 mouth 2 [place] 00 :00 (two) Medical times Branch daily with meals. buPROPion 2020-0 2020- No [id number] 150mg Take 1 [facility] SR 9-10 11-09 tablet by ity of (WELLBUTRIN 00:00: 00:00 mouth 2 [place] SR) 150 mg 00 :00 (two) Medical SR tablet times Branch daily. metoprolol 2020-0 2020- No [id number] 25mg Take 1 [facility] succinate 9-10 11-09 tablet by ity of XL 25 mg 24 00:00: 00:[place] tablet 00 :00 daily. [facility] naproxen 2019- No [id number] 500mg Take 1 [facility] 500 mg 9-10 11-09 tablet by ity of tablet 00:00: 00:00 mouth 2 [place] 00 :00 (two) Medical times Branch daily with meals. buPROPion 2019- No [id number] 150mg Take 1 [facility] SR 9-10 11-09 tablet by ity of (WELLBUTRIN 00:00: 00:00 mouth 2 [place] SR) 150 mg 00 :00 (two) Medical SR tablet times Branch daily. metoprolol 2019- No [id number] 25mg Take 1 [facility] succinate 9-10 11-09 tablet by ity of XL 25 mg 24 00:00: 00:[place] tablet 00 :00 daily. [facility] naproxen No [id number] 500mg Take 1 [facility] 500 mg 9-10 -09 tablet by ity of tablet 00:00: 00:00 mouth 2 [place] 00 :00 (two) Medical times Branch daily with meals. buPROPion 2019- No [id number] 150mg Take 1 [facility] SR 9-10 11-09 tablet by ity of (WELLBUTRIN 00:00: 00:00 mouth 2 [place] SR) 150 mg 00 :00 (two) Medical SR tablet times Branch daily. TRAZODONE 2018-03 Yes [id number] TAKE THREE [facility] 50 mg 1-18 TABLETS BY ity of tablet 00:00: MOUTH AT [address] Medical Branch TRAZODONE 2018-03 Yes [id number] TAKE THREE [facility] 50 mg 1-18 TABLETS BY ity of tablet 00:00: [facility]TH AT [place] [facility] 2018-03 2020- No [id number] TAKE THREE [facility] 50 mg 1-18 09-10 TABLETS BY ity of tablet 00:00: 00:00 MOUTH AT [place] 00 [facility] TRA[facility] 2018-03 2020- No [id number] TAKE THREE [facility] 50 mg 1-18 09-10 TABLETS BY ity of tablet 00:00: 00:00 MOUTH AT [place] 00 :00 BEDTIME Medical Branch metoprolol Yes [...] Memoria 6-14 (Same as: l 14:00: Colace) [place] 00 (Do Not Crush) Docusate No Notes: [facility] 6-14 (Same as: l 14:00: Colace) [place] 00 (Do Not Crush) Docusate No Notes: [facility]oria 6-14 (Same as: l 14:00: Colace) [place] 00 (Do Not Crush) Docusate No Notes: [facility] 6-14 (Same as: l 14:00: Colace) [place] 00 (Do Not Crush) Docusate No Notes: [...] teto 6-14 acetaminop l 11:00: hen 4000 [place] 00 mg/day (4 gm/day). (Same as: Tylenol [...] teto 6-14 acetaminop l 11:00: hen 4000 [place] 00 mg/day (4 gm/day). (Same as: Tylenol Extra Strength) Tylenol No Notes: Max Kuldeep teto 6-14 acetaminop l 11:00: hen 4000 [place] 00 mg/day (4 gm/day). (Same as: Tylenol Extra Strength) Tylenol No Notes: Max Kuldeep teto 6-14 acetaminop l 11:00: hen 4000 [place] 00 mg/day (4 gm/day). (Same as: Tylenol Extra Strength) Lovenox No Notes: Memoria 6-14 (Same as: l 09:00: Lovenox) [place] Lovenox No Notes: [facility] 6-14 (Same as: l 09:00: Lovenox) [place] Lovenox No Notes: [facility]oria 6-14 (Same as: l 09:00: Lovenox) [place] Lovenox No Notes: [facility] 6-14 (Same as: l 09:00: Lovenox) [place] Lovenox No Notes: [facility] 6-14 (Same as: l 09:00: Lovenox) [place] 00 Lovenox No Notes: [facility]oria 6-14 (Same as: l 09:00: Lovenox) [place] Isolyte S No Notes: Memori a PH [...] 14 (Same as: l 08:13: Zofran) [place] MEDICATION WASTE Product Size: 4 mg Product Wasted: _0__ mg Glucagon 0 No 1 mg, Memoria 08-16 Route: IM, l 08:13: Drug form: [place] 00 PDR/INJ, PRN, Dosing Weight 81.818, kg, [...] 3:12:00 CDT Ondansetron No Notes: Kuldeep teto 08-16 (Same as: l 08:13: Zofran) [place] MEDICATION WASTE Product Size: 4 mg Product Wasted: _0__ mg Glucagon No 1 mg, Memoria 08-16 Route: IM, l 08:13: Drug form: [place] [...] Syringe 6-14 25 mL, l 08:13: Route: [place] 00 IVP, Drug Form: INJ, Dosing Weight [...] 6-14 Route: IM, l 08:13: Drug form: [place] 00 PDR/INJ, PRN, Dosing Weight 81.818, kg, PRN Blood Glucose Results, Start date: 08/16/18 3:13:00 CDT, Duration: 30 day, Stop date: 09/15/18 3:12:00 CDT Dextrose 2019-0 No 12.5 gm, Memor ia 50% Syringe 6-14 25 mL, l 08:13: Route: [place] 00 IVP, Drug Form: INJ, Dosing Weight [...] 6-14 Route: IM, l 08:13: Drug form: [place] 00 PDR/INJ, PRN, Dosing Weight 81.818, kg, [...] Memoria 6-14 Route: l 07:11: IVP, ONCE, [place] 00 Dosing Weight 81.818, kg, Priority: STAT, Start date: 08/16/18 2:11:00 CDT, Stop date: 08/16/18 2:11:00 CDT Zofran 2019-0 No 4 mg, Memoria 6-14 Route: l 07:11: IVP, Drug [place] 00 form: INJ, ONCE, Dosing Weight 81.818, kg, Priority: STAT, Start date: 08/16/18 2:11:00 CDT, Stop date: 08/16/18 2:11:00 CDT Morphine 2019-0 No 4 mg, [facility]oria 6-14 Route: l 07:11: IVP, ONCE, [place] 00 Dosing Weight 81.818, kg, Priority: STAT, Start date: 08/16/18 2:11:00 CDT, Stop date: 08/16/18 2:11:00 CDT Zofran 2019-0 No 4 mg, [facility]oria 6-14 Route: l 07:11: IVP, Drug [place] 00 form: INJ, ONCE, Dosing Weight 81.818, kg, Priority: STAT, Start date: 08/16/18 2:11:00 CDT, Stop date: 08/16/18 2:11:00 CDT Morphine 2019-0 No 4 mg, Memoria 6-14 Route: l 07:11: IVP, ONCE, [place] 00 Dosing Weight 81.818, kg, Priority: STAT, Start date: 08/16/18 2:11:00 CDT, Stop date: 08/16/18 2:11:00 CDT Zofran 2019-0 No 4 mg, [facility]oria 6-14 Route: l 07:11: IVP, Drug [place] 00 form: INJ, ONCE, Dosing Weight 81.818, kg, Priority: STAT, Start date: 08/16/18 2:11:00 CDT, Stop date: 08/16/18 2:11:00 CDT Morphine 2019-0 No 4 mg, [facility] 6-14 Route: l 07:11: IVP, ONCE, [place] 00 Dosing Weight 81.818, kg, Priority: STAT, Start date: 08/16/18 2:11:00 CDT, Stop date: 08/16/18 2:11:00 CDT Doxycycline 2019-0 Yes Notes: Kuldeep teto 4-19 (Same as: l 18:35: Vibramycin [place] 00 ) Doxycycline 2019-0 Yes Notes: Kuldeep teto 4-19 (Same as: l 18:35: Vibramycin [place] 00 ) Doxycycline 2019-0 Yes Notes: Kuldeep teto 4-19 (Same as: l 18:35: Vibramycin [place] 00 ) Doxycycline 2019-0 Yes Notes: Kuldeep teto 4-19 (Same as: l 18:35: Vibramycin [place] 00 ) Doxycycline 2019-0 Yes Notes: Kuldeep teto 4-19 (Same as: l 18:35: Vibramycin [place] 00 ) Doxycycline Yes Notes: Kuldeep teto 4-19 (Same as: l 18:35: Vibramycin [place] ) Trazodone No Notes: Memori a Hydrochlori 4-02 (Same As: l de 50 MG 02:00: Desyrel) [place] nn Oral Tablet atorvastati No Notes: Kuldeep teto n 4-02 (Same as: l 02:00: Lipitor) [place] 00 Trazodone No Notes: Memori a Hydrochlori 4-02 (Same As: l de 50 MG 02:00: Desyrel) [place] nn Oral Tablet atorvastati No Notes: Kuldeep teto n 4-02 (Same as: l 02:00: Lipitor) [place] 00 Trazodone No Notes: Memori a Hydrochlori 4-02 (Same As: l de 50 MG 02:00: Desyrel) [place] nn Oral Tablet atorvastati No Notes: Kuldeep teto n 4-02 (Same as: l 02:00: Lipitor) [place] 00 Trazodone No Notes: Memori a Hydrochlori 4-02 [...] day, # 28 tab, 0 Refill(s), Pharmacy: [facility] [facility] [address] doxycycline Yes 100 mg = 1 Memoria hyclate 100 4-01 tab, PO, l MG Oral 20:58: Q12H, X 14 Herm ladi Tablet 00 day, # 28 tab, 0 Refill(s), Pharmacy: [facility] [facility] [address] doxycycline Yes 100 mg = 1 [facility]oria hyclate 100 4-01 tab, PO, l MG Oral 20:58: Q12H, X 14 [place] ladi Tablet 00 day, # 28 tab, 0 Refill(s), Pharmacy: [facility] [facility] [address] doxycycline Yes 100 mg = 1 [facility] hyclate 100 4-01 tab, PO, l MG Oral 20:58: Q12H, X 14 [place] ladi Tablet 00 day, # 28 tab, 0 Refill(s), Pharmacy: [facility] [address] doxycycline Yes 100 mg = 1 [facility] hyclate 100 4-01 tab, PO, l MG Oral 20:58: Q12H, X 14 [place] ladi Tablet 00 day, # 28 tab, 0 Refill(s), Pharmacy: [facility] [facility] [address] doxycycline Yes 100 mg = 1 [facility]oria hyclate 100 4-01 tab, PO, l MG Oral 20:58: Q12H, X 14 [place] ladi Tablet 00 day, # 28 tab, 0 Refill(s), Pharmacy: [facility] [facility] [address] meropenem No Notes: Memori a 06-03 Same as l 18:00: Merrem [place] 00 MEDICATION WASTE Product Size: 500 mg Product Wasted: ___ mg meropenem No Notes: Memori a 06-03 Same as l 18:00: Merrem [place] 00 MEDICATION WASTE Product Size: 500 mg Product Wasted: ___ mg meropenem No Notes: Memori a 06-03 Same as l 18:00: Merrem [place] 00 MEDICATION WASTE Product Size: 500 mg [...] a 06-03 Same as l 18:00: Merrem [place] 00 MEDICATION WASTE Product Size: 500 mg Product Wasted: ___ mg tramadol No Notes: Not Mem oria hydrochlori - to exceed l de 50 MG 17:30: 400mg/day. Her [place] Oral Tablet 00 (Same As: Ultram) tramadol No Notes: Not Mem oria hydrochlori - to exceed l de 50 MG 17:30: 400mg/day. Her [place] Oral Tablet 00 (Same As: Ultram) tramadol No Notes: Not Mem oria hydrochlori - to exceed l de 50 MG 17:30: 400mg/day. Her [place] Oral Tablet 00 (Same As: Ultram) tramadol No Notes: Not Mem oria hydrochlori - to exceed l de 50 MG 17:30: 400mg/day. Her [place] Oral Tablet 00 (Same As: Ultram) tramadol No Notes: Not Mem oria hydrochlori - to exceed l de 50 MG 17:30: 400mg/day. Her [place] Oral Tablet 00 (Same As: Ultram) tramadol No Notes: Not Mem oria hydrochlori - to exceed l de 50 MG 17:30: 400mg/day. Her [place] Oral Tablet 00 (Same As: Ultram) Doxycycline No Notes: Kuldeep teto 4-01 (Same as: l 15:10: Vibramycin [place] 00 ) Doxycycline No Notes: Kuldeep teto 4-01 (Same as: l 15:10: Vibramycin [place] 00 ) Doxycycline No Notes: Kuldeep teto 4-01 (Same as: l 15:10: Vibramycin [place] 00 ) Doxycycline No Notes: Kuldepe teto 4-01 (Same as: l 15:10: Vibramycin [place] 00 ) Doxycycline No Notes: Kuldeep teto 4- (Same as: l 15:10: Vibramycin [place] 00 ) Doxycycline No Notes: Kuldeep teto 4-01 (Same as: l 15:10: Vibramycin [place] 00 ) tramadol No Notes: Not Mem oria hydrochlori - to exceed l de 50 MG 14:00: 400mg/day. Her [place] Oral Tablet 00 (Same As: Ultram) Aspirin 81 No Notes: Do Me moria MG Enteric 06-03 not crush l Coated 14:00: or chew. [place] Tablet 00 (Same As: Ecotrin) Midodrine No Notes: Memori a 4- (Same l 14:00: as:Proamat [place] 00 ine) metoprolol No Notes: Memor ia extended - (Same as: l release 14:00: Toprol XL) [place] lad[place] 00 Do Not Crush Lisinopril No Notes: Memor ia 4- (Same as: l 14:00: Prinivil, [place] 00 Zestril) duloxetine No Notes: Memor ia 4-01 (Same as: l 14:00: Cymbalta) [place] 00 (Do Not Crush) Docusate No Notes: Memoria Sodium 100 4-01 (Same as: l MG Oral 14:00: Colace) [place] Capsule 00 (Do Not [Colace] Crush) clopidogrel No Notes: Kuldeep teto 4-01 (Same As: l 14:00: Plavix) [place] 00 heparin No Notes: Memoria 4-01 porcine l 14:00: heparin [place] 00 Buspirone No Notes: Memori a 4-01 (Same As: l 14:00: BuSpar) [place] 00 duloxetine No Notes: Memor ia 4-01 (Same as: l 14:00: Cymbalta) [place] 00 (Do Not Crush) Docusate No Notes: Memoria Sodium 100 4-01 (Same as: l MG Oral 14:00: Colace) [place] Capsule 00 (Do Not [Colace] Crush) clopidogrel No Notes: Kuldeep teto 4-01 (Same As: l 14:00: Plavix) [place] 00 heparin No Notes: Memoria 4-01 porcine l 14:00: heparin [place] 00 Buspirone No Notes: Memori a 4-01 (Same As: l 14:00: BuSpar) [place] tramadol No Notes: Not Mem oria hydrochlori [...] ia 4-01 (Same as: l 14:00: Prinivil, [place] 00 Zestril) duloxetine No Notes: Memor ia 4-01 (Same as: l 14:00: Cymbalta) [place] 00 (Do Not Crush) Docusate No Notes: Memoria Sodium 100 4-01 (Same as: l MG Oral 14:00: Colace) [place] Capsule 00 (Do Not [Colace] Crush) clopidogrel No Notes: Kuldeep teto 4-01 (Same As: l 14:00: Plavix) [place] 00 heparin No Notes: Memoria 4-01 porcine l 14:00: heparin [place] Buspirone No Notes: Memori a 4-01 (Same As: l 14:00: BuSpar) [place] 00 tramadol No Notes: Not Mem oria hydrochlori 4-01 to exceed l de 50 MG 14:00: 400mg/day. [place] Oral Tablet 00 (Same As: Ultram) Aspirin 81 No Notes: Do Me moria MG Enteric 4-01 not crush l Coated 14:00: or chew. [place] Tablet 00 (Same As: Ecotrin) Midodrine No Notes: Memori a 4- (Same l 14:00: as:Proamat [place] 00 ine) metoprolol No Notes: Memor ia extended 4- (Same as: l release 14:00: Toprol XL) [place] lad[place] 00 Do Not Crush Lisinopril No Notes: Memor ia 4- (Same as: l 14:00: Prinivil, [place] 00 Zestril) duloxetine No Notes: Memor ia 4- (Same as: l 14:00: Cymbalta) [place] 00 (Do Not Crush) Docusate No Notes: Memoria Sodium 100 - (Same as: l MG Oral 14:00: Colace) [place] Capsule 00 (Do Not [Colace] Crush) clopidogrel No Notes: Kuldeep teto - (Same As: l 14:00: Plavix) [place] 00 heparin No Notes: Memoria 4- porcine l 14:00: heparin [place] 00 Buspirone No Notes: Memori a 4- (Same As: l 14:00: BuSpar) [place] 00 tramadol No Notes: Not Mem oria hydrochlori 06-03 to exceed l de 50 MG 14:00: 400mg/day. [place] Oral Tablet 00 (Same As: Ultram) Aspirin 81 No Notes: Do Me moria MG Enteric 06-03 not crush l Coated 14:00: or chew. [place] Tablet 00 (Same As: Ecotrin) Midodrine No Notes: Memori a 4- (Same l 14:00: as:Proamat [place] 00 ine) metoprolol No Notes: Memor ia extended 4- (Same as: l release 14:00: Toprol XL) [place] lad[place] 00 Do Not Crush Lisinopril No Notes: Memor ia 4- (Same as: l 14:00: Prinivil, [place] 00 Zestril) duloxetine No Notes: Memor ia 4- (Same as: l 14:00: Cymbalta) [place] 00 (Do Not Crush) Docusate No Notes: Memoria Sodium 100 4-01 (Same as: l MG Oral 14:00: Colace) [place] Capsule 00 (Do Not [Colace] Crush) clopidogrel No Notes: Kuldeep teto 4-01 (Same As: l 14:00: Plavix) [place] 00 heparin No Notes: Memoria 4-01 porcine l 14:00: heparin [place] Buspirone No Notes: Memori a 4-01 (Same As: l 14:00: BuSpar) [place] 00 tramadol No Notes: Not Mem oria hydrochlori 4- to exceed l de 50 MG 14:00: 400mg/day. [place] Oral Tablet 00 (Same As: Ultram) Aspirin 81 No Notes: Do Me moria MG Enteric 4- not crush l Coated 14:00: or chew. [place] Tablet 00 (Same As: Ecotrin) Midodrine No Notes: Memori a 4-01 (Same l 14:00: as:Proamat [place] 00 ine) metoprolol No Notes: Memor ia extended 4-01 (Same as: l release 14:00: Toprol XL) Herm lad[place] 00 Do Not Crush Lisinopril No Notes: Memor ia 4-01 (Same as: l 14:00: Prinivil, [place] 00 Zestril) duloxetine No Notes: Memor ia 4-01 (Same as: l 14:00: Cymbalta) [place] 00 (Do Not Crush) Docusate No Notes: Memoria Sodium 100 4-01 (Same as: l MG Oral 14:00: Colace) [place] Capsule 00 (Do Not [Colace] Crush) clopidogrel No Notes: Kuldeep teto 4-01 (Same As: l 14:00: Plavix) [place] 00 heparin No Notes: Memoria 4-01 porcine l 14:00: heparin [place] 00 Buspirone No Notes: Memori a 4-01 (Same As: l 14:00: BuSpar) [place] 00 tramadol No Notes: Not Mem oria hydrochlori 4-01 to exceed l de 50 MG 14:00: 400mg/day. [place] Oral Tablet 00 (Same As: Ultram) Aspirin 81 No Notes: Do Me moria MG Enteric 06-03 not crush l Coated 14:00: or chew. [place] Tablet 00 (Same As: Ecotrin) Midodrine No Notes: Memori a - (Same l 14:00: as:Proamat [place] 00 ine) metoprolol No Notes: Memor ia extended 06-03 (Same as: l release 14:00: Toprol XL) Herm ladi 00 Do Not Crush Lisinopril No Notes: Memor ia - (Same as: l 14:00: Prinivil, [place] 00 Zestril) tramadol No Notes: Not Mem oria hydrochlori - to exceed l de 50 MG 04:45: 400mg/day. Her f[place] Oral Tablet 00 (Same As: Ultram) tramadol No Notes: Not Mem oria hydrochlori - to exceed l de 50 MG 04:45: [...] teto 4-01 (Same as: l 02:32: Apresoline [place] 00 ) Push over 5 minutes Hydralazine 0 No Notes: Kuldeep teto 4-01 (Same as: l 02:32: Apresoline [place] ) Push over 5 minutes Hydralazine No Notes: Kuldeep teto 4-01 (Same as: l 02:32: Apresoline [place] ) Push over 5 minutes Hydralazine No Notes: Kuldeep teto 4-01 (Same as: l 02:32: Apresoline [place] ) Push over 5 minutes Hydralazine No Notes: Kuldeep teto 4-01 (Same as: l 02:32: Apresoline [place] ) Push over 5 minutes Trazodone No Notes: Memori a 4-01 (Same As: l 02:19: Desyrel) [place] Trazodone No Notes: Memori a 4- (Same As: l 02:19: Desyrel) [place] Trazodone No Notes: Memori a 4- (Same As: l 02:19: Desyrel) [place] Trazodone No Notes: Memori a 4- (Same As: l 02:19: Desyrel) [place] Trazodone No Notes: Memori a 4-01 (Same As: l 02:19: Desyrel) [place] Trazodone No Notes: Memori a 4-01 (Same As: l 02:19: Desyrel) [place] Vancomycin No 2000 mg: Me moria 4- infuse l 00:00: over 2.5 [place] 00 hours For adult patients only: Round to nearest 250 mg per Medical Staff approval MEDICATION WASTE Product Size: 1000 mg Product Wasted: ___ mg cefepime No Notes: Memoria 4- (Same As: l 00:00: Maxipime) [place] MEDICATION WASTE Product Size: 1000 mg Product [...] Memoria 06-03 (Same As: l 00:00: Maxipime) [place] 00 MEDICATION WASTE Product Size: 1000 mg [...] cap, PO, l MG Oral 23:50: Daily [place] Capsule [Colace] Docusate Yes 100 mg = 1 Mem oria Sodium 100 3-31 cap, PO, l MG Oral 23:50: Daily [place] Capsule [Colace] Docusate Yes 100 mg = [...] 3-31 tab, PO, l tablet 23:49: Daily [place] Aspirin 81 Yes 81 mg = 1 Me moria MG Enteric 3-31 tab, PO, l Coated 23:49: Daily [place] Tablet midodrine Yes 2.5 mg = 1 Me moria 2.5 mg oral 3-31 tab, PO, l tablet 23:49: Daily [place] Aspirin 81 Yes 81 mg = 1 Me moria MG Enteric 3-31 tab, PO, l Coated 23:49: Daily [place] Tablet midodrine Yes 2.5 mg = 1 Me moria 2.5 mg oral 3-31 tab, PO, l tablet 23:49: Daily [place] Aspirin 81 Yes 81 mg = 1 Me moria MG Enteric 3-31 tab, PO, l Coated 23:49: Daily [place] Tablet midodrine Yes 2.5 mg = 1 Me moria 2.5 mg oral 3-31 tab, PO, l tablet 23:49: Daily Aspirin 81 Yes 81 mg = 1 Me moria MG Enteric 3-31 tab, PO, l Coated 23:49: Daily [place] Tablet midodrine Yes 2.5 mg = 1 Me moria 2.5 mg oral 3-31 tab, PO, l tablet 23:49: Daily Aspirin 81 Yes 81 mg = 1 Me moria MG Enteric 3-31 tab, PO, l Coated 23:49: Daily [place] Tablet midodrine Yes 2.5 mg = 1 Me moria 2.5 mg oral 3-31 tab, PO, l tablet 23:49: Daily Glucagon No 1 mg, Memoria -31 Route: IM, l 22:10: Drug form: PDR/INJ, [...] ___ mg Glucagon No 1 mg, Memoria 31 Route: IM, l 22:10: Drug form: [place] 00 PDR/INJ, PRN, Dosing Weight 96.8, kg, [...] 06-02 not exceed l 22:10: 4 gm/day. [place] 00 (Same as: Tylenol) Melatonin No Notes: Memori a 06-02 (Same as: l 22:10: Melatonin) Ondansetron No Notes: Kuldeep teto 06-02 (Same as: l 22:10: Zofran) MEDICATION WASTE Product Size: 4 mg Product Wasted: ___ mg Glucagon No 1 mg, Memoria 06-02 Route: IM, l 22:10: Drug form: [place] 00 PDR/INJ, PRN, Dosing Weight 96.8, kg, [...] 06-02 not exceed l 22:10: 4 gm/day. [place] 00 (Same as: Tylenol) Melatonin No Notes: [...] 06-02 Route: IM, l 22:10: Drug form: [place] 00 PDR/INJ, PRN, Dosing Weight 96.8, kg, [...] not exceed l 22:10: 4 gm/day. [place] (Same as: Tylenol) Melatonin No Notes: Memori a - (Same as: l 22:10: Melatonin) [place] Ondansetron No Notes: Kuldeep teto 06-02 (Same as: l 22:10: Zofran) MEDICATION WASTE Product Size: 4 mg Product Wasted: ___ mg Glucagon No 1 mg, Memoria 06-02 Route: IM, l 22:10: Drug form: [place] 00 PDR/INJ, PRN, Dosing Weight 96.8, kg, [...] 06-02 not exceed l 22:10: 4 gm/day. [place] (Same as: Tylenol) Melatonin No Notes: Memori a - (Same as: l 22:10: Melatonin) Ondansetron No Notes: Kuldeep teto 06-02 (Same as: l 22:10: Zofran) MEDICATION WASTE Product Size: 4 mg Product Wasted: ___ mg Trazodone Yes 50 mg = 1 Mem oria Hydrochlori 31 tab, PO, l de 50 MG 22:08: Bedtime Arsenio n Oral Tablet 00 tramadol Yes 100 mg = 2 Mem oria hydrochlori 3-31 tab, PO, l de 50 MG 22:08: Bedtime Arsenio n Oral Tablet 00 Trazodone 20190 Yes 50 mg = 1 Mem oria [...] PO, l de 50 MG 22:08: Bedtime Arseino n Oral Tablet 00 Metoprolol Yes 25 mg = 1 Me moria Succinate 3-31 tab, PO, l ER 25 mg 22:06: Daily [place] oral 00 tablet, extended release DULoxetine Yes 30 mg = 1 Me moria 30 mg oral 3-31 cap, PO, l delayed 22:06: Daily [place] release 00 capsule Metoprolol 2019-0 Yes 25 [...] 3-31 cap, PO, l delayed 22:06: Daily [place] release 00 capsule Metoprolol 2019-0 Yes 25 mg = 1 Me moria Succinate 3-31 tab, PO, l ER 25 mg 22:06: Daily [place] oral 00 tablet, extended release DULoxetine 2019-0 Yes 30 mg = 1 Me moria 30 mg oral 3-31 cap, PO, l delayed 22:06: Daily [place] release 00 capsule Metoprolol 2019-0 Yes 25 mg = 1 Me moria Succinate 3-31 tab, PO, l ER 25 mg 22:06: Daily [place] oral 00 tablet, extended release DULoxetine 2019-0 Yes 30 mg = 1 Me moria 30 mg oral 3-31 cap, PO, l delayed 22:06: Daily [place] release 00 capsule lisinopril 2019-0 Yes 2.5 mg = Mem oria 5 mg oral 3-19 0.5 tab, l tablet 15:58: PO, Daily, Marcia nn 00 # 30 tab, 0 Refill(s), Pharmacy: [facility] [facility] [address] lisinopril 2019-0 Yes 2.5 mg = Mem oria 5 mg oral 3-19 0.5 tab, l tablet 15:58: PO, Daily, Marcia nn 00 # 30 tab, 0 Refill(s), Pharmacy: [facility] [address] lisinopril 2019-0 Yes 2.5 mg = Mem oria 5 mg oral 3-19 0.5 tab, l tablet 15:58: PO, Daily, Marcia nn 00 # 30 tab, 0 Refill(s), Pharmacy: [facility] [address] lisinopril 2019-0 Yes 2.5 mg = Mem oria 5 mg oral 3-19 0.5 tab, l tablet 15:58: PO, Daily, Marcia nn 00 # 30 tab, 0 Refill(s), Pharmacy: [facility] [address] lisinopril 2019-0 Yes 2.5 mg = Mem oria 5 mg oral 3-19 0.5 tab, l tablet 15:58: PO, Daily, Marcia nn 00 # 30 tab, 0 Refill(s), Pharmacy: [facility] [address] lisinopril 2019-0 Yes 2.5 mg = Mem oria 5 mg oral 3-19 0.5 tab, l tablet 15:58: PO, Daily, Marcia nn 00 # 30 tab, 0 Refill(s), Pharmacy: [facility] [address] Vancomycin 2018-0 No 2001 mg: Me moria 3-18 infuse l 23:00: over 2.5 [place] 00 hours For adult patients only: Round to nearest 250 mg per Medical Staff approval MEDICATION WASTE Product Size: 1000 mg Product Wasted: ___ mg Vancomycin 2019-0 No 2001 mg: Me moria 3-18 infuse l 23:00: over 2.5 [place] 00 hours For adult patients only: Round to nearest 250 mg per Medical Staff approval MEDICATION WASTE Product Size: 1000 mg Product Wasted: ___ mg Vancomycin 2019-0 No 2001 mg: Me moria 3-18 infuse l 23:00: over 2.5 [place] 00 hours For adult patients only: Round [...] No 133 mL, Mem oria 3-17 Route: MA, l 22:12: Drug Form: [place] 00 CARLOZ, Dosing Weight 80.909, kg, ONCE, Start date: 05/19/18 17:12:00 CDT, Stop date: 05/19/18 17:12:00 CDT Fleet Enema 2018-0 No 133 mL, Mem oria 3-17 Route: MA, l 22:12: Drug Form: [place] 00 CARLOZ, Dosing Weight 80.909, kg, ONCE, Start date: 05/19/18 17:12:00 CDT, Stop date: 05/19/18 17:12:00 CDT Fleet Enema 2018-0 No 133 mL, Mem oria 3-17 Route: MA, l 22:12: Drug Form: [place] 00 CARLOZ, Dosing Weight 80.909, kg, ONCE, Start date: 05/19/18 17:12:00 CDT, Stop date: 05/19/18 17:12:00 CDT Fleet Enema 2019-0 No 133 mL, Mem oria 3-17 Route: MA, l 22:12: Drug Form: [place] 00 CARLOZ, Dosing Weight 80.909, kg, ONCE, Start date: 05/19/18 17:12:00 CDT, Stop date: 05/19/18 17:12:00 CDT Fleet Enema 2018-0 No 133 mL, Mem o[facility] 3-17 Route: MA, l 22:12: Drug Form: [place] 00 CARLOZ, Dosing Weight 80.909, kg, ONCE, Start date: 05/19/18 17:12:00 CDT, Stop date: 05/19/18 17:12:00 CDT Fleet Enema 2019-0 No 133 mL, Mem oria 3-17 Route: MA, l 22:12: Drug Form: [place] 00 CARLOZ, Dosing Weight 80.909, kg, ONCE, Start date: 05/19/18 17:12:00 CDT, Stop date: 05/19/18 17:12:00 CDT Naloxone No Notes: [facility] 3-15 Same as l 19:11: Narcan [place] Naloxone No Notes: Memoria 3-15 Same as l 19:11: Narcan [place] Naloxone No Notes: Memoria 3-15 Same as l 19:11: Narcan [place] Naloxone No Notes: Memoria 3-15 Same as l 19:11: Narcan [place] Naloxone No Notes: Memoria 3-15 Same as l 19:11: Narcan [place] Naloxone No Notes: Memoria 3-15 Same as l 19:11: Narcan [place] Romazicon Yes Notes: Memori a 3-15 (Same as: l 19:01: Romazicon) [place] 00 Romazicon Yes Notes: Memori a 3-15 (Same [...] 3-15 Drug form: l 16:39: INJ, ONCE, Cody 00 Stop date: 05/17/18 11:39:00 CDT morphine [...] 3-15 Drug form: l 16:39: INJ, ONCE, [place] 00 Stop date: 05/17/18 11:39:00 CDT neostigmine 2019-0 No Route: IV, Memoria (ANES) 3-15 Drug form: l 16:39: INJ, ONCE, [place] 00 Stop date: 05/17/18 11:39:00 CDT morphine 2019-0 No Route: IV, Mem oria Sulfate 3-15 Drug form: l (ANES) 16:39: INJ, ONCE, Marcia nn Stop date: 05/17/18 11:39:00 CDT ondansetron 2019-0 No Route: IV, Memoria (ANES) 3-15 Drug form: l 16:39: INJ, ONCE, Cody Stop date: 05/17/18 11:39:00 CDT glycopyrrol 2019-0 [...] ONCE, Stop date: 05/17/18 11:39:00 CDT cefepime 0 No Route: IV, Mem oria (ANES) 1000 15 Drug form: l mg 15:59: INJ, date: 05/17/18 10:59:00 CDT, Stop date: 05/17/18 11:59:00 CDT cefepime 20190 No Route: IV, Mem oria (ANES) 1000 15 Drug form: l mg 15:59: INJ, date: 05/17/18 10:59:00 CDT, Stop date: 05/17/18 11:59:00 CDT cefepime 0 No Route: IV, Mem oria (ANES) 1000 15 Drug form: l mg 15:59: INJ, date: 05/17/18 10:59:00 CDT, Stop date: 05/17/18 11:59:00 CDT cefepime 20190 No Route: IV, Mem oria (ANES) 1000 315 Drug form: l mg 15:59: INJ, date: 05/17/18 10:59:00 CDT, Stop date: 05/17/18 11:59:00 CDT cefepime 20190 No Route: IV, Mem oria (ANES) 1000 3-15 Drug form: l mg 15:59: INJ, date: 05/17/18 10:59:00 CDT, Stop date: 05/17/18 11:59:00 CDT cefepime 20190 No Route: IV, Mem oria (ANES) 1000 315 Drug form: l mg 15:59: INJ, date: [...] SOLN, ONCE, Stop date: 05/17/18 10:43:00 CDT succinylcho [...] (ANES) 3-15 Drug form: l 15:43: SOLN, Cody 00 ONCE, Stop date: 05/17/18 10:43:00 CDT succinylcho 2019-0 No Route: IV, Memoria line (ANES) 3-15 Drug form: l 15:43: INJ, ONCE, [place] Stop date: 05/17/18 10:43:00 CDT midazolam 2019-0 No Route: IV, Me moria (ANES) 3-15 Drug form: l 15:43: SOLN, Cody ONCE, Stop date: 05/17/18 10:43:00 CDT succinylcho [...] (ANES) 3-15 Drug form: l 15:43: SOLN, [place] 00 ONCE, Stop date: 05/17/18 10:43:00 CDT Flumazenil 2019-0 No Notes: Memor ia 3-15 (Same as: l 15:35: Romazicon) [place] 00 Morphine 2019-0 No Notes: Memoria 3-15 (Same l 15:35: as:MORPhin [place] 00 e Sulfate) Hydromorpho No Notes: Kuldeep teto ne 3-15 Same as l 15:35: Dilaudid [place] Acetaminoph No Notes: Max Memoria en 3-15 acetaminop l 15:35: hen 4000 [place] 00 mg/day (4 gm/day). (Same as: Tylenol Extra Strength) Promethazin No Notes: Do M emoria e 3-15 not give l 15:35: IV push. [place] (Same as: Phenergan) Ondansetron No Notes: Kuldeep teto 3-15 (Same as: l 15:35: Zofran) [place] 00 MEDICATION WASTE Product Size: 4 mg Product Wasted: ___ mg Meperidine No Notes: Memor ia 3-15 (Same as: l 15:35: Demerol) "Use Precaution in Elderly, Seizure disorders, and Renal impairment " Glycopyrrol No Notes: Kuldeep teto ate 3-15 (Same as: l 15:35: Robinul) [place] 00 Naloxone No Notes: Memoria 3-15 Same as l 15:35: Narcan Flumazenil No Notes: Memor ia 3-15 (Same as: l 15:35: Romazicon) Morphine No Notes: Memoria 3-15 (Same l 15:35: as:MORPhin [place] 00 e Sulfate) Hydromorpho No Notes: Kuldeep teto ne 3-15 Same as l 15:35: Dilaudid [place] Acetaminoph No Notes: Max Memoria en 3-15 acetaminop l 15:35: hen 4000 [place] 00 mg/day (4 gm/day). (Same as: Tylenol Extra Strength) Promethazin No Notes: Do M emoria e 3-15 not give l 15:35: IV push. [place] 00 (Same as: Phenergan) Ondansetron No Notes: Kuldeep teto 3-15 (Same as: l 15:35: Zofran) [place] 00 MEDICATION WASTE Product Size: 4 mg Product Wasted: ___ mg Meperidine No Notes: Memor ia 3-15 (Same as: l 15:35: Demerol) "Use Precaution in Elderly, Seizure disorders, and Renal impairment " Glycopyrrol No Notes: Kuldeep teto ate 3-15 (Same as: l 15:35: Robinul) [place] 00 Naloxone No Notes: Memoria 3-15 Same as l 15:35: Narcan Flumazenil No Notes: Memor ia 3-15 (Same as: l 15:35: Romazicon) [place] 00 Morphine No Notes: Memoria 3-15 (Same l 15:35: as:MORPhin [place] 00 e Sulfate) Hydromorpho No Notes: Kuldeep [...] Memoria 3-15 Same as l 15:35: Narcan [place] 00 Flumazenil No Notes: Memor ia 3-15 (Same as: l 15:35: Romazicon) [place] 00 Morphine No Notes: Memoria 3-15 (Same l 15:35: as:MORPhin [place] 00 e Sulfate) Hydromorpho No Notes: Kuldeep teto ne 3-15 Same as l 15:35: Dilaudid [place] Acetaminoph No Notes: Max Memoria en 3-15 acetaminop l 15:35: hen 4000 [place] 00 mg/day (4 gm/day). (Same as: Tylenol Extra Strength) Promethazin No Notes: Do M emoria e 3-15 not give l 15:35: IV push. [place] (Same as: Phenergan) Ondansetron No Notes: Kuldeep [...] Notes: Memoria 3-15 (Same l 15:35: as:MORPhin [place] 00 e Sulfate) Hydromorpho No Notes: Kuldeep teto ne 3-15 Same as l 15:35: Dilaudid [place] 00 Acetaminoph No Notes: Max Memoria en 3-15 acetaminop l 15:35: hen 4000 [place] 00 mg/day (4 gm/day). (Same as: Tylenol Extra Strength) Promethazin No Notes: Do M emoria e 3-15 not give l 15:35: IV push. [place] (Same as: Phenergan) Ondansetron No Notes: Kuldeep [...] en 3-15 acetaminop l 15:35: hen 4000 mg/day (4 gm/day). (Same as: Tylenol [...] CDT, Stop date: 05/17/18 11:17:00 CDT acetaminoph 0 No Route: IV, Memoria en (ANES) 3-15 Drug form: l 10 mg 15:17: INJ, Start Arsenio n date: 05/17/18 10:17:00 CDT, Stop date: 05/17/18 11:17:00 CDT acetaminoph 0 No Route: IV, Memoria en (ANES) 3-15 Drug form: l 10 mg 15:17: INJ, Start Arsenio n date: 05/17/18 10:17:00 CDT, Stop date: 05/17/18 11:17:00 CDT acetaminoph 0 No Route: IV, Memoria en (ANES) 3-15 Drug form: l 10 mg 15:17: INJ, Start Arsenio n date: 05/17/18 10:17:00 CDT, Stop date: 05/17/18 11:17:00 CDT acetaminoph No Route: IV, Memoria en (ANES) 3-15 Drug form: l 10 mg 15:17: INJ, Start Arsenio n date: 05/17/18 10:17:00 CDT, Stop date: 05/17/18 11:17:00 CDT phenylephri 0 No Route: IV, Memoria ne (ANES) 3-15 Drug form: l 100 14:50: INJ, Start [place] microgram date: 05/17/18 9:50:00 CDT, Stop date: 05/17/18 10:50:00 CDT phenylephri 2018-0 No Route: IV, Memoria ne (ANES) 3-15 Drug form: l 100 14:50: INJ, Start Cody microgram 00 date: 05/17/18 9:50:00 CDT, Stop [...] Drug form: l 100 14:50: INJ, Start Cody microgram date: 05/17/18 9:50:00 CDT, Stop date: 05/17/18 10:50:00 CDT phenylephri 2019-0 No Route: IV, Memoria ne (ANES) 3-15 Drug form: l 100 14:50: INJ, Start Cody microgram date: 05/17/18 9:50:00 CDT, Stop date: 05/17/18 10:50:00 CDT Lactated 2019-0 No Route: IV, Mem oria Ringers 3-15 Total l Injection 14:30: Volume: Marcia nn IV (ANES) 00 1,000, 1000 mL Start date: 05/17/18 9:30:00 CDT, Stop date: 05/17/18 10:30:00 CDT Lactated 2018-0 No Route: IV, Mem oria Ringers 3-15 Total l Injection 14:30: Volume: Marcia nn IV (ANES) 00 1,000, 1000 mL Start date: 05/17/18 9:30:00 CDT, Stop date: 05/17/18 10:30:00 CDT Lactated 2019-0 No Route: IV, Mem oria Ringers 3-15 Total l Injection 14:30: Volume: Marcia nn IV (ANES) 00 1,000, 1000 mL Start date: 05/17/18 9:30:00 CDT, Stop date: 05/17/18 10:30:00 CDT Lactated 2019-0 No Route: IV, Mem oria Ringers 3-15 [...] ia 3-15 (Same as: l 14:00: Prinivil, Cody 00 Zestril) Lisinopril No Notes: Memor ia 3-15 (Same as: l 14:00: Prinivil, [place] 00 Zestril) Lisinopril No Notes: Memor ia 3-15 (Same as: l 14:00: Prinivil, [place] 00 Zestril) Lisinopril 2018-0 No Notes: Memor ia 3-15 (Same as: l 14:00: Prinivil, [place] 00 Zestril) Vancomycin 2018- No 2000 mg: Me moria 3-15 infuse l 06:00: over 2.5 [place] 00 hours For adult patients only: Round to nearest 250 mg per Medical Staff approval MEDICATION WASTE Product Size: 1000 mg Product Wasted: ___ mg Vancomycin 2018-0 No 2000 mg: Me moria 3-15 infuse l 06:00: over 2.5 [place] 00 hours For adult patients only: Round [...] moria 3-15 infuse l 06:00: over 2.5 [place] 00 hours For adult patients only: Round to nearest 250 mg per Medical Staff approval MEDICATION WASTE Product Size: 1000 mg Product Wasted: ___ mg Vancomycin 2018-0 No 2001 mg: Me moria 3-15 infuse l 06:00: over 2.5 [place] 00 hours For adult patients only: Round [...] mg 3-14 "Syringe l injection 22:49: for Cody 00 catheter clearance or interventi onal radiology use. Reconstitu te each vial of Cathflo Activase with 2.2 ml Sterile Water resulting in a 1 mg/ml solution. (Same as: Activase) MEDICATION WASTE Product Size: 2 mg Product Wasted: ___ mg alteplase 2 No Notes: Kuldeep teto mg 3-14 "Syringe l injection 22:49: for [place] 00 catheter clearance or interventi onal radiology use. Reconstitu te each vial of Cathflo Activase with 2.2 ml Sterile Water resulting in a 1 mg/ml solution. (Same as: Activase) MEDICATION WASTE Product Size: 2 mg Product Wasted: ___ mg alteplase 2 No Notes: Kuldeep teto mg 3-14 "Syringe l injection 22:49: for [place] 00 catheter clearance or interventi onal radiology [...] mg 3-14 "Syringe l injection 22:49: for [place] 00 catheter clearance or interventi onal radiology [...] mg 3-14 "Syringe l injection 22:48: for [place] 00 catheter clearance or interventi onal radiology use. Reconstitu te each vial of Cathflo Activase with 2.2 ml Sterile Water resulting in a 1 mg/ml solution. (Same as: Activase) MEDICATION WASTE Product Size: 2 mg Product Wasted: ___ mg alteplase 2 No Notes: Kuldeep teto mg 3-14 "Syringe l injection 22:48: for [place] 00 catheter clearance or interventi onal radiology [...] mg 3-14 "Syringe l injection 22:48: for [place] 00 catheter clearance or interventi onal radiology use. Reconstitu te each vial of Cathflo Activase with 2.2 ml Sterile Water resulting in a 1 mg/ml solution. (Same as: Activase) MEDICATION WASTE Product Size: 2 mg Product Wasted: ___ mg Chlorpromaz No Notes: Kuldeep teto ine 3-14 (Same As: l 03:48: Thorazine) Chlorpromaz No Notes: Kuldeep teto ine 3-14 (Same As: l 03:48: Thorazine) [place] 00 Chlorpromaz 2019-0 No Notes: Kuldeep teto ine 3-14 (Same As: l 03:48: Thorazine) Chlorpromaz 2018-0 No Notes: Kuldeep teto ine 3-14 (Same As: l 03:48: Thorazine) Chlorpromaz 2018-0 No Notes: Kuldeep teto ine 3-14 (Same As: l 03:48: Thorazine) Chlorpromaz 2018-0 No Notes: Kuldeep teto ine 3-14 (Same As: l 03:48: Thorazine) Metoclopram 2019-0 No 10 mg, Kuldeep teto thor 3-13 Route: l 17:13: IVP, ONCE, Dosing Weight 80.909, kg, Start date: 05/15/18 12:13:00 CDT, Stop date: 05/15/18 12:13:00 CDT Metoclopram 2019-0 No 10 mg, Kuldeep teto thor 3-13 [...] CDT, Stop date: 05/15/18 12:13:00 CDT Metoclopram 2019-0 No 10 mg, Kuldeep teto thor 3-13 Route: l 17:13: IVP, ONCE, Dosing Weight 80.909, kg, Start date: 05/15/18 12:13:00 CDT, Stop date: 05/15/18 12:13:00 CDT Metoclopram 2019-0 No 10 mg, Kuldeep teto thor 3-13 Route: l 17:13: IVP, ONCE, [place] 00 Dosing Weight 80.909, kg, Start date: 05/15/18 12:13:00 CDT, Stop date: 05/15/18 12:13:00 CDT Docusate No Notes: Memoria Sodium 100 3-13 (Same as: l MG Oral 15:11: Colace) [place] Capsule 00 (Do Not [Colace] Crush) Docusate No Notes: Memoria Sodium 100 3-13 (Same as: l MG Oral 15:11: Colace) [place] Capsule 00 (Do Not [Colace] Crush) Docusate No Notes: Memoria Sodium 100 3-13 (Same as: l MG Oral 15:11: Colace) [place] Capsule 00 (Do Not [Colace] Crush) Docusate No Notes: Memoria Sodium 100 3-13 (Same as: l MG Oral 15:11: Colace) [place] Capsule 00 (Do Not [Colace] Crush) Docusate No Notes: Memoria Sodium 100 3-13 (Same as: l MG Oral 15:11: Colace) [place] Capsule 00 (Do Not [Colace] Crush) Docusate No Notes: Memoria Sodium 100 3-13 (Same as: l MG Oral 15:11: Colace) [place] Capsule 00 (Do Not [Colace] Crush) Chlorpromaz No Notes: Kuldeep teto ine 3-12 (Same As: l 23:30: Thorazine) [place] Chlorpromaz No Notes: Kuldeep teto ine 3-12 (Same As: l 23:30: Thorazine) [place] Chlorpromaz No Notes: Kuldeep teto ine 3-12 (Same As: l 23:30: Thorazine) [place] Chlorpromaz No Notes: Kuldeep teto ine 3-12 (Same As: l 23:30: Thorazine) [place] Chlorpromaz No Notes: Kuldeep teto ine 3-12 (Same As: l 23:30: Thorazine) [place] Chlorpromaz No Notes: Kuldeep teto ine 3-12 (Same As: l 23:30: Thorazine) [place] 00 Reglan No Notes: Memoria 3-12 (Same as: l 21:45: Reglan) [place] 00 Reglan No Notes: Memoria 3-12 (Same as: l 21:45: Reglan) [place] 00 Reglan No Notes: Memoria 3-12 (Same as: l 21:45: Reglan) [place] 00 Reglan No Notes: Memoria 3-12 (Same as: l 21:45: Reglan) [place] 00 Reglan No Notes: Memoria 3-12 (Same as: l 21:45: Reglan) [place] 00 Reglan No Notes: Memoria 3-12 (Same as: l 21:45: Reglan) [place] 00 cefepime Yes Notes: Memoria 3-12 (Same [...] 1000 mg Product Wasted: _0__ mg Fentanyl 2018-0 No Notes: Memoria 3-12 (Same as: l 16:56: Sublimaze) [place] 00 Preservati ve free. Fentanyl No Notes: Memoria 3-12 (Same as: l 16:56: Sublimaze) [place] 00 Preservati ve free. Fentanyl No Notes: Memoria 3-12 (Same as: l 16:56: Sublimaze) [place] 00 Preservati ve free. Fentanyl No Notes: Memoria 3-12 (Same as: l 16:56: Sublimaze) [place] 00 Preservati ve free. Fentanyl No Notes: Memoria 3-12 (Same as: l 16:56: Sublimaze) [place] 00 Preservati ve free. Fentanyl No Notes: Memoria 3-12 (Same as: l 16:56: Sublimaze) [place] 00 Preservati ve free. lidocaine No Notes: Memori a 3-12 Preservati l 05:00: ve free. [place] 00 (Same as: Xylocaine MPF) lidocaine No Notes: Memori a 3-12 Preservati l 05:00: ve free. [place] 00 (Same as: Xylocaine MPF) lidocaine No Notes: Memori a 3-12 Preservati l 05:00: ve free. [place] 00 (Same as: Xylocaine MPF) lidocaine No Notes: Memori a 3-12 Preservati l 05:00: ve free. [place] 00 (Same as: Xylocaine MPF) lidocaine No Notes: Memori a 3-12 Preservati l 05:00: ve free. [place] 00 (Same as: Xylocaine MPF) lidocaine No Notes: Memori a 3-12 Preservati l 05:00: ve free. [place] 00 (Same as: Xylocaine MPF) Sodium 2019- No 250 mL, Memoria Chloride 3-12 Rate: [...] Rate: To l 0.9% 02:42: prime line Cody (titrate) 00 and flush 250 mL remaining [...] Rate: To l 0.9% 02:42: prime line Cody (titrate) 00 and flush 250 mL remaining blood products., Dosing Weight 80.909, kg, Route: IV, Total Volume: 250, Priority: Routine, Start Date: 05/13/18 21:42:00 CDT, Duration: 30 day, Stop date: 06/12/18 21:41:00 CDT, Replace Every: 24 hr Sodium 2019-0 No 250 mL, Memoria Chloride 3-12 Rate: To l 0.9% 02:42: prime line Cody (titrate) 00 and flush 250 mL remaining [...] date: 06/12/18 20:20:00 CDT, 2.05, m2 normal 20190 No 1,000 mL, Memori a saline 0.9% [...] Notes: Memoria 3-11 (Same l 22:48: as:MORPhin [place] 00 e Sulfate) Morphine No Notes: Memoria 3-11 (Same l 22:48: as:MORPhin [place] 00 e Sulfate) Morphine No Notes: Memoria 3-11 (Same l 22:48: as:MORPhin [place] 00 e Sulfate) Morphine No Notes: Memoria 3-11 (Same l 22:48: as:MORPhin [place] 00 e Sulfate) albumin No 250 mL, [...] 00 Stop date: 05/13/18 10:36:00 CDT morphine 0 No Route: IV, Mem oria Sulfate 3-11 Drug form: l (ANES) 15:36: INJ, ONCE, Marcia nn 00 Stop date: 05/13/18 10:36:00 CDT morphine 0 No Route: IV, Mem oria Sulfate 3-11 [...] 3-11 Drug form: l 14:05: INJ, ONCE, Cody Stop date: 05/13/18 9:05:00 CDT sugammadex 2019-0 No Route: IV, M emoria (ANES) 3-11 Drug form: l 14:05: SOLN, [place] ONCE, Stop date: 05/13/18 9:05:00 CDT acetaminoph 2019-0 No Route: IV, Memoria en (ANES) 3-11 Drug form: l 14:05: INJ, ONCE, [place] Stop date: 05/13/18 9:05:00 CDT sugammadex 2019-0 No Route: IV, M emoria (ANES) 3-11 Drug form: l 14:05: SOLN, [place] 00 ONCE, Stop date: 05/13/18 9:05:00 CDT acetaminoph 2019-0 No Route: IV, Memoria en (ANES) 3-11 Drug form: l 14:05: INJ, ONCE, [place] Stop date: 05/13/18 9:05:00 CDT sugammadex 2019-0 No Route: IV, M emoria (ANES) 3- Drug form: l 14:05: SOLN, [place] 00 ONCE, Stop date: 05/13/18 9:05:00 CDT acetaminoph No Route: IV, Memoria en (ANES) - Drug form: l 14:05: INJ, ONCE, [place] 00 Stop date: 05/13/18 9:05:00 CDT sugammadex No Route: IV, M emoria (ANES) 3- Drug form: l 14:05: SOLN, [place] 00 ONCE, Stop date: 05/13/18 9:05:00 CDT acetaminoph No Route: IV, Memoria en (ANES) 3- Drug form: l 14:05: INJ, ONCE, [place] 00 Stop date: 05/13/18 9:05:00 CDT sugammadex No Route: IV, M emoria (ANES) 3- Drug form: l 14:05: SOLN, [place] 00 ONCE, Stop date: 05/13/18 9:05:00 CDT [...] minutes Hydromorpho No Notes: Kuldeep teto ne -11 Same as l 13:39: Dilaudid Morphine No Notes: Memoria 3-11 (Same l 13:39: as:MORPhin e Sulfate) Naloxone No Notes: Memoria 3-11 Same as l 13:39: Narcan Flumazenil No Notes: Memor ia - (Same as: l 13:39: Romazicon) [place] Dexamethaso 2019- No Notes: Kuldeep teto ne 3-11 Concentrat l 13:39: ion: [place] 00 4mg/ml Ondansetron 2019-0 No Notes: Kuldeep teto 3-11 (Same as: l 13:39: Zofran) [place] 00 MEDICATION WASTE Product Size: 4 mg Product Wasted: ___ mg Albuterol 2019- No Notes: SEE Me moria 0.83 MG/ML 3-11 RT l Inhalant 13:39: DOCUMENTAT Her fernandes Solution 00 ION (Same as: Proventil) Hydralazine 2018- No Notes: Kuldeep teto 3-11 (Same as: l 13:39: Apresoline Cody 00 ) Push over 5 minutes Hydromorpho 2018- No Notes: Kuldeep teto ne 3-11 Same as l 13:39: Dilaudid [place] 00 Morphine 2018- No Notes: Memoria 3-11 (Same l 13:39: as:MORPhin [place] 00 e Sulfate) Naloxone 2018- No Notes: Memoria 3-11 Same as l 13:39: Narcan [place] Flumazenil 2018- No Notes: Memor ia 3-11 (Same as: l 13:39: Romazicon) [place] Dexamethaso 2018- No Notes: Kuldeep teto ne 3-11 Concentrat l 13:39: ion: [place] 00 4mg/ml Ondansetron 2018- No Notes: Kuldeep teto 3-11 (Same as: l 13:39: Zofran) [place] 00 MEDICATION WASTE Product Size: 4 mg Product Wasted: ___ mg Albuterol 2019- No Notes: SEE Me moria 0.83 MG/ML 3-11 RT l Inhalant 13:39: DOCUMENTAT Her fernandes Solution 00 ION (Same as: Proventil) Hydralazine 2019- No Notes: Kuldeep teto 3-11 (Same as: l 13:39: Apresoline [place] 00 ) Push over 5 minutes Hydromorpho 2018- No Notes: Kuldeep teto ne 3-11 Same as l 13:39: Dilaudid [place] 00 Morphine 2018-0 No Notes: Memoria 3-11 (Same l 13:39: as:MORPhin [place] 00 e Sulfate) Naloxone 2019- No Notes: Memoria 3-11 Same as l 13:39: Narcan [place] 00 Flumazenil 2019-0 No Notes: Memor ia 3-11 (Same as: l 13:39: Romazicon) [place] Dexamethaso 2018-0 No Notes: Kuldeep teto ne 3-11 Concentrat l 13:39: ion: [place] 00 4mg/ml Ondansetron 2019-0 No Notes: Kuldeep [...] 13:39: as:MORPhin [place] 00 e Sulfate) Naloxone 2018-0 No Notes: Memoria 3-11 Same as l 13:39: Narcan [place] 00 Flumazenil 2018- No Notes: Memor ia 3-11 (Same as: l 13:39: Romazicon) [place] Dexamethaso 2019-0 No Notes: Kuldeep teto ne 3-11 Concentrat l 13:39: ion: [place] 00 4mg/ml Ondansetron 2019-0 No Notes: Kuldeep [...] Memoria 3-11 Same as l 13:39: Narcan [place] Flumazenil No Notes: Memor ia 3-11 (Same as: l 13:39: Romazicon) [place] Dexamethaso 2018- No Notes: Kuldeep teto ne 3-11 Concentrat l 13:39: ion: [place] 00 4mg/ml Ondansetron 2018- No Notes: Kuldeep teto 3-11 (Same as: l 13:39: Zofran) Cody MEDICATION WASTE Product Size: 4 mg Product [...] ne 3-11 Same as l 13:39: Dilaudid [place] 00 Morphine 2018- No Notes: Memoria 3-11 [...] teto 3-11 (Same as: l 13:39: Zofran) [place] 00 MEDICATION WASTE Product Size: 4 mg Product Wasted: ___ mg esmolol 2019-0 No Route: IV, Kuldeep teto (ANES) 3-11 Drug form: l 13:38: INJ, ONCE, Stop date: 05/13/18 8:38:00 CDT esmolol 2019-0 No Route: IV, Kuldeep teto (ANES) 3-11 Drug form: l 13:38: INJ, ONCE, Stop date: 05/13/18 8:38:00 CDT esmolol 2019-0 No Route: IV, Kuldeep teto (ANES) 3-11 Drug form: l 13:38: INJ, ONCE, Stop date: 05/13/18 8:38:00 CDT esmolol 2019-0 No Route: IV, Kuldeep teto (ANES) 3-11 Drug form: l 13:38: INJ, ONCE, Stop date: 05/13/18 8:38:00 CDT esmolol 2019-0 No Route: IV, Kuldeep teto (ANES) 3-11 Drug form: l 13:38: INJ, ONCE, Stop date: 05/13/18 8:38:00 CDT esmolol 2019-0 No Route: IV, Kuldeep teto (ANES) 3-11 Drug form: l 13:38: INJ, ONCE, Stop date: 05/13/18 8:38:00 CDT fentaNYL 2019-0 No Route: IV, Mem [...] 3-11 Drug form: l 13:28: INJ, ONCE, [place] 00 Stop date: 05/13/18 8:28:00 CDT midazolam [...] 3-11 Drug form: l 13:23: INJ, ONCE, [place] 00 Stop date: 05/13/18 8:23:00 CDT lidocaine 2019-0 No Route: IV, Me moria (ANES) 3-11 Drug form: l 13:23: INJ, ONCE, [place] 00 Stop date: 05/13/18 8:23:00 CDT propofol 2019-0 No Route: IV, Mem oria (ANES) 3-11 Drug form: l 13:23: INJ, ONCE, Stop date: 05/13/18 8:23:00 CDT midazolam 2019-0 No Route: IV, Me moria (ANES) 3-11 Drug form: l 13:23: SOLN, [place] 00 ONCE, Stop date: 05/13/18 8:23:00 CDT rocuronium 2019-0 No Route: IV, M emoria (ANES) 3-11 Drug form: l 13:23: INJ, ONCE, [place] 00 Stop date: 05/13/18 8:23:00 CDT lidocaine 2019-0 No Route: IV, Me moria (ANES) 3-11 Drug form: l 13:23: INJ, ONCE, [place] 00 Stop date: 05/13/18 8:23:00 CDT propofol 2019-0 No Route: IV, Mem oria (ANES) 3-11 Drug form: l 13:23: INJ, ONCE, [place] 00 Stop date: 05/13/18 8:23:00 CDT midazolam 2019-0 No Route: IV, Me moria (ANES) 3-11 Drug form: l 13:23: SOLN, [place] ONCE, Stop date: 05/13/18 8:23:00 CDT rocuronium 2019-0 No Route: IV, M emoria (ANES) 3-11 Drug form: l 13:23: INJ, ONCE, [place] 00 Stop date: 05/13/18 8:23:00 CDT lidocaine 2019-0 No Route: IV, Me moria (ANES) 3-11 Drug form: l 13:23: INJ, ONCE, [place] 00 Stop date: 05/13/18 8:23:00 CDT propofol [...] [place] 00 Stop date: 05/13/18 8:23:00 CDT lidocaine 2019-0 No Route: IV, Me moria (ANES) 3-11 Drug form: l 13:23: INJ, ONCE, Stop date: 05/13/18 8:23:00 CDT propofol 2019-0 No Route: IV, Mem oria (ANES) 3-11 Drug form: l 13:23: INJ, ONCE, Stop date: 05/13/18 8:23:00 CDT midazolam 2019-0 No Route: IV, Me moria (ANES) 3- Drug form: l 13:23: SOLN, ONCE, Stop date: 05/13/18 8:23:00 CDT rocuronium 2019-0 No Route: IV, M emoria (ANES) 3- Drug form: l 13:23: INJ, [...] CDT, Stop date: 05/13/18 8:09:00 CDT Lactated 2018-0 No Route: IV, Mem oria Ringers 3-11 [...] 20:00: over 2.5 [place] 00 hours Vancomycin 2019-0 No 2000 mg: Me moria 3- infuse l 20:00: over 2.5 [place] 00 hours Vancomycin 2019-0 No 2000 mg: Me moria 3- infuse l 20:00: over 2.5 [place] 00 hours Vancomycin 2019-0 No 2000 mg: Me moria 3- infuse l 20:00: over 2.5 [place] 00 hours Vancomycin 2019-0 No 2000 mg: Me moria 3- infuse l 20:00: over 2.5 [place] 00 hours Vancomycin 2019-0 No 2000 mg: Me moria 3- infuse l 20:00: over 2.5 [place] 00 hours heparin No Notes: Memoria 3-09 porcine l 15:00: heparin [place] 00 heparin No Notes: Memoria 3-09 porcine l 15:00: heparin [place] 00 heparin No Notes: Memoria 3-09 porcine l 15:00: heparin [place] 00 heparin No Notes: Memoria 3- porcine l 15:00: heparin [place] 00 heparin No Notes: Memoria 3- porcine l 15:00: heparin [place] 00 heparin No Notes: Memoria 309 porcine l 15:00: heparin [place] 00 Acetaminoph No Notes: Kuldeep teto en 325 MG / 05-11 (Same as: l Hydrocodone 01:40: [place] Marcia nn Bitartrate 00 325/5) Do 5 MG Oral not exceed Tablet 4gm/day of [[place] acetaminop 5/325] hen. Acetaminoph No Notes: Kuldeep teto en 325 MG / 05-11 (Same as: l Hydrocodone 01:40: [place] Marcia nn Bitartrate 00 325/5) Do 5 MG Oral not exceed Tablet 4gm/day of [[place] acetaminop 5/325] hen. Acetaminoph No Notes: Kuldeep teto en 325 MG / 05-11 (Same as: l Hydrocodone 01:40: [place] Marcia nn Bitartrate 00 325/5) Do 5 MG Oral not exceed Tablet 4gm/day of [[place] acetaminop 5/325] hen. Acetaminoph No Notes: Kuldeep teto en 325 MG / 05-11 (Same as: l Hydrocodone 01:40: [place] Marcia nn Bitartrate 00 325/5) Do 5 MG Oral not exceed Tablet 4gm/day of [[place] acetaminop 5/325] hen. Acetaminoph No Notes: Kuldeep teto en 325 MG / 05-11 (Same as: l Hydrocodone 01:40: [place] Marcia nn Bitartrate 00 325/5) Do 5 MG Oral not exceed Tablet 4gm/day of [[place] acetaminop 5/325] hen. Acetaminoph No Notes: Kuldeep teto en 325 MG / 3-09 (Same as: l Hydrocodone 01:40: [place] Marcia nn Bitartrate 00 325/5) Do 5 MG Oral not exceed Tablet 4gm/day of [[place] acetaminop 5/325] hen. 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, Duration: 30 day, Stop date: 06/08/18 9:00:00 CDT clopidogrel 2018-0 No Notes: Kuldeep teto 3-08 (Same As: l 15:00: Plavix) [place] 00 Lisinopril No Notes: Memor ia 3-08 (Same as: l 15:00: Prinivil, [place] 00 Zestril) 24 HR No 25 mg, 1 [facility] Metoprolol 3-08 tab, l Tartrate 25 15:00: Route: PO, [place] MG Extended 00 Drug form: Release ERTAB, Tablet Daily, [Toprol] 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, 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, Stop date: 06/08/18 9:00:00 CDT ferrous 2018-0 No Notes: [facility] sulfate 3-08 Dose=___mg l 15:00: elemental [place] 00 iron duloxetine 0 No 30 mg, 1 Mem oria 3-08 cap, l 15:00: Route: PO, [place] 00 Drug form: DRC, Daily, Dosing Weight 80.909, kg, 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, 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, Stop date: 06/08/18 9:00:00 CDT clopidogrel 2018-0 No Notes: Kuldeep teto 3-08 (Same As: l 15:00: Plavix) [place] Lisinopril 0 No Notes: Memor ia 3-08 (Same as: l 15:00: Prinivil, [place] 00 Zestril) 24 HR No 25 mg, 1 [facility] Metoprolol 3-08 tab, l Tartrate 25 15:00: Route: PO, [place] MG Extended 00 Drug form: Release ERTAB, Tablet Daily, [Toprol] 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, 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, Stop date: 06/08/18 9:00:00 CDT ferrous 2018-0 No Notes: [facility] sulfate 3-08 Dose=___mg l 15:00: elemental [place] 00 iron duloxetine 0 No 30 mg, 1 Mem oria 3-08 cap, l 15:00: Route: PO, [place] 00 Drug form: DRC, Daily, Dosing Weight 80.909, kg, 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, 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, Stop date: 06/08/18 9:00:00 CDT clopidogrel 2018-0 No Notes: Kuldeep teto 3-08 (Same As: l 15:00: Plavix) Lisinopril 0 No Notes: Memor ia 3-08 (Same as: l 15:00: Prinivil, [place] 00 Zestril) 24 HR No 25 mg, 1 [facility] Metoprolol 3-08 tab, l Tartrate 25 15:00: Route: PO, Cody MG Extended 00 Drug form: Release ERTAB, Tablet Daily, [Toprol] 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, Duration: 30 day, Stop date: 06/08/18 9:00:00 CDT ferrous 2019-0 No Notes: [facility] sulfate 3-08 Dose=___mg l 15:00: elemental [place] 00 iron duloxetine 2018-0 No 30 mg, 1 Mem oria 3-08 cap, l 15:00: Route: PO, [place] 00 Drug form: DRC, Daily, Dosing Weight 80.909, kg, 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, Duration: 30 day, Stop date: 06/08/18 9:00:00 CDT clopidogrel 2018-0 No Notes: Kuldeep teto 3-08 (Same As: l 15:00: Plavix) Lisinopril 0 No Notes: Memor ia 3-08 (Same as: l 15:00: Prinivil, [place] 00 Zestril) 24 HR No 25 mg, 1 [facility] Metoprolol 3-08 tab, l Tartrate 25 15:00: Route: PO, [place] MG Extended 00 Drug form: Release ERTAB, Tablet Daily, [Toprol] 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, Duration: 30 day, Stop date: 06/08/18 9:00:00 CDT ferrous 2018-0 No Notes: [facility] sulfate 3-08 Dose=___mg l 15:00: elemental [place] iron duloxetine 0 No 30 mg, 1 Mem oria 3-08 cap, l 15:00: Route: PO, [place] 00 Drug form: DRC, Daily, Dosing Weight 80.909, kg, 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, Duration: 30 day, Stop date: 06/08/18 9:00:00 [...] Tablet Daily, [Toprol] 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, Duration: 30 day, Stop date: 06/08/18 9:00:00 CDT ferrous 2019-0 No Notes: [facility] sulfate 3-08 Dose=___mg l 15:00: elemental [place] 00 iron duloxetine 2018-0 No 30 mg, 1 Mem oria 3-08 cap, l 15:00: Route: PO, [place] 00 Drug form: DRC, Daily, Dosing Weight 80.909, kg, 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, Duration: 30 day, Stop date: 06/08/18 9:00:00 CDT clopidogrel 2019-0 No Notes: Kuldeep teto 3-08 (Same As: l 15:00: Plavix) [place] 00 Lisinopril 2018-0 No Notes: Memor ia 3-08 (Same as: l 15:00: Prinivil, [place] 00 Zestril) Saline 2018-0 No 10 mL, [facility] Flush 0.9% 3-08 Route: l 06:00: IVP, Drug [place] 00 Form: INJ, Dosing Weight 80.909, kg, Q8H, Start date: 05/10/18 0:00: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, Duration: 30 day, Stop date: 06/08/18 16:00:00 CDT Saline 2019-0 No 10 mL, [facility] Flush 0.9% 3-08 Route: l 06:00: IVP, Drug [place] 00 Form: INJ, Dosing Weight 80.909, kg, Q8H, Start date: 05/10/18 0:00: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, Duration: 30 day, Stop date: 06/08/18 16:00:00 CDT Saline 2019-0 No 10 mL, [facility] Flush 0.9% 3-08 Route: l 06:00: IVP, Drug [place] 00 Form: INJ, Dosing Weight 80.909, kg, Q8H, Start date: 05/10/18 0:00: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, Duration: 30 day, Stop date: 06/08/18 16:00:00 CDT Saline 2019-0 No 10 mL, [facility] Flush 0.9% 3-08 Route: l 06:00: IVP, Drug [place] 00 Form: INJ, Dosing Weight 80.909, kg, Q8H, Start date: 05/10/18 0:00: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, Duration: 30 day, Stop date: 06/08/18 16:00:00 CDT Saline 2019-0 No 10 mL, [facility] Flush 0.9% 3-08 Route: l 06:00: IVP, Drug [place] 00 Form: INJ, Dosing Weight 80.909, kg, Q8H, Start date: 05/10/18 0:00: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, Duration: 30 day, Stop date: 06/08/18 16:00:00 CDT Saline No 10 mL, [facility] Flush 0.9% 3-08 Route: l 06:00: IVP, Drug Form: INJ, Dosing Weight 80.909, kg, Q8H, Start date: 05/10/18 0:00: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, Duration: 30 day, Stop date: 06/08/18 16:00:00 CDT Mirtazapine No Notes: Kuldeep teto 3-08 (Same l 03:00: as:Remeron [place] 00 ) Trazodone No Notes: Memori a Hydrochlori 3-08 (Same As: l de 50 MG 03:00: Desyrel) Marcia nn Oral Tablet atorvastati No Notes: Kuldeep teto n 3-08 (Same as: l 03:00: Lipitor) [place] Mirtazapine No Notes: Kuldeep teto 3-08 (Same l 03:00: as:Remeron [place] 00 ) Trazodone No Notes: Memori a Hydrochlori 3-08 (Same As: l de 50 MG 03:00: Desyrel) Marcia nn Oral Tablet atorvastati No Notes: Kuldeep teto n 3-08 (Same as: l 03:00: Lipitor) [place] Mirtazapine No Notes: Kuldeep teto 3-08 (Same l 03:00: as:Remeron [place] ) Trazodone No Notes: Memori a Hydrochlori 3-08 (Same As: l de 50 MG 03:00: Desyrel) Marcia nn Oral Tablet atorvastati No Notes: Kuldeep teto n 3-08 (Same as: l 03:00: Lipitor) [place] Mirtazapine No Notes: Kuldeep teto 3-08 (Same l 03:00: as:Remeron [place] ) Trazodone No Notes: Memori a Hydrochlori 3-08 (Same As: l de 50 MG 03:00: Desyrel) Marcia nn Oral Tablet 00 atorvastati No Notes: Kuldeep teto n 3-08 (Same as: l 03:00: Lipitor) [place] Mirtazapine No Notes: Kuldeep teto 3-08 (Same l 03:00: as:Remeron [place] 00 ) Trazodone No Notes: Memori a Hydrochlori 3-08 (Same As: l de 50 MG 03:00: Desyrel) Marcia nn Oral Tablet 00 atorvastati No Notes: Kuldeep teto n 3-08 (Same as: l 03:00: Lipitor) [place] Mirtazapine No Notes: Kuldeep teto 3-08 (Same l 03:00: as:Remeron [place] 00 ) Trazodone No Notes: Memori a Hydrochlori 3-08 (Same As: l de 50 MG 03:00: Desyrel) Marcia nn Oral Tablet atorvastati No Notes: Kuldeep teto n 3-08 (Same as: l 03:00: Lipitor) [place] Saline No 10 mL, [facility] Flush 0.9% 3-07 Route: l 23:54: IVP, Drug [place] 00 Form: INJ, Dosing Weight 80.909, kg, PRN, PRN Line Flush, Start date: 05/09/18 17:54: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, Duration: 30 day, Stop date: 06/08/18 18:53:00 CDT Saline No 10 mL, [facility] Flush 0.9% 3-07 Route: l 23:54: IVP, Drug [place] 00 Form: INJ, Dosing Weight 80.909, kg, PRN, PRN Line Flush, Start date: 05/09/18 17:54: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, Duration: 30 day, Stop date: 06/08/18 18:53:00 CDT Saline No 10 mL, [facility] Flush 0.9% 3-07 Route: l 23:54: IVP, Drug [place] 00 Form: INJ, Dosing Weight 80.909, kg, PRN, PRN Line Flush, Start date: 05/09/18 17:54: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, Duration: 30 day, Stop date: 06/08/18 18:53:00 CDT Saline 2019-0 No 10 mL, [facility] Flush 0.9% 3-07 Route: l 23:54: IVP, Drug [place] 00 Form: INJ, Dosing Weight 80.909, kg, PRN, PRN Line Flush, Start date: 05/09/18 17:54: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, Duration: 30 day, Stop date: 06/08/18 18:53:00 CDT Saline 2018-0 No 10 mL, [facility] Flush 0.9% 3-07 Route: l 23:54: IVP, Drug [place] 00 Form: INJ, Dosing Weight 80.909, kg, PRN, PRN Line Flush, Start date: 05/09/18 17:54: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, Duration: 30 day, Stop date: 06/08/18 18:53:00 CDT Saline 2018-0 No 10 mL, [facility] Flush 0.9% 3-07 Route: l 23:54: IVP, Drug [place] 00 Form: INJ, Dosing Weight 80.909, kg, PRN, PRN Line Flush, Start date: 05/09/18 17:54: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, Duration: 30 day, Stop date: 06/08/18 18:53:00 [...] a 3-07 (Same As: l 23:00: BuSpar) [place] cefepime 0 No Notes: [facility]oria 3-07 (Same [...] l 23:00: BuSpar) cefepime No Notes: [facility] 3- (Same As: l 23:00: Maxipime) MEDICATION WASTE Product Size: 1000 mg Product Wasted: ___ mg Buspirone No Notes: Memori a 3-07 (Same As: l 23:00: BuSpar) cefepime No Notes: [facility] 3- (Same As: l 23:00: Maxipime) MEDICATION WASTE [...] 00 Posiflush) Vancomycin No Notes: For Bradley freitasria 3-07 adult l 22:00: patients [place] 00 only: Round to nearest 250 mg per Medical Staff approval MEDICATION WASTE Product Size: 1000 mg Product Wasted: ___ mg BD Normal No Notes: Memori a Saline 3-07 (Same as: l Flush 22:00: BD [place] Posiflush) Vancomycin No Notes: For Bradley freitasria 3-07 adult l 22:00: patients [place] 00 only: Round to nearest 250 mg [...] 3-07 (Same as: l Flush 22:00: BD [place] Posiflush) Vancomycin No Notes: For Bradley freitasria 3-07 adult l 22:00: patients [place] 00 only: Round to nearest 250 mg per Medical Staff approval MEDICATION WASTE Product Size: 1000 mg Product Wasted: ___ mg BD Normal No Notes: Memori a Saline 3-07 (Same as: l Flush 22:00: BD [place] Posiflush) Vancomycin No Notes: For Bradley freitasria 3-07 adult l 22:00: patients [place] 00 only: Round to nearest 250 mg per Medical Staff approval MEDICATION WASTE Product Size: 1000 mg Product Wasted: ___ mg BD Normal No Notes: Memori a Saline 3-07 (Same as: l Flush 22:00: BD [place] Posiflush) Vancomycin No Notes: For Bradley cleaning 3- adult l 22:00: patients [place] 00 only: Round to nearest 250 mg per Medical Staff approval MEDICATION WASTE Product Size: 1000 mg Product Wasted: ___ mg Sodium 2018- No 25 mL, [facility] Chloride 3-07 Route: IV, l 0.9% IV 19:59: Start [place] 00 date: 05/09/18 13:59: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, Duration: 30 day, Stop date: 06/08/18 14:58:00 CDT, PRN Line Flush BD Normal No Notes: Memori a Saline 3-07 (Same as: l Flush 19:59: BD [place] Posiflush) Sodium No 25 mL, [facility] Chloride 3-07 Route: IV, l 0.9% IV 19:59: Start [place] 00 date: 05/09/18 13:59: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, Duration: 30 day, Stop date: 06/08/18 14:58:00 CDT, PRN Line Flush BD Normal No Notes: Memori a Saline 3-07 (Same as: l Flush 19:59: BD [place] Posiflush) Sodium No 25 mL, [facility] Chloride 3-07 Route: IV, l 0.9% IV 19:59: Start [place] 00 date: 05/09/18 13:59: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, Duration: 30 day, Stop date: 06/08/18 14:58:00 CDT, PRN Line Flush BD Normal No Notes: Memori a Saline 3-07 (Same as: l Flush 19:59: BD [place] Posiflush) Sodium 2018- No 25 mL, [facility] Chloride 3-07 Route: IV, l 0.9% IV 19:59: Start [place] 00 date: 05/09/18 13:59: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, Duration: 30 day, Stop date: 06/08/18 14:58:00 CDT, PRN Line Flush BD Normal No Notes: Memori a Saline 3-07 (Same as: l Flush 19:59: BD [place] 00 Posiflush) Sodium 2019 No 25 mL, [facility] Chloride 3-07 Route: IV, l 0.9% IV 19:59: Start [place] 00 date: 05/09/18 13:59: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, Duration: 30 day, Stop date: 06/08/18 14:58:00 CDT, PRN Line Flush BD Normal No Notes: Memori a Saline 3-07 (Same as: l Flush 19:59: BD [place] 00 Posiflush) Sodium 2019 No 25 mL, [facility] Chloride 3-07 Route: IV, l 0.9% IV 19:59: Start [place] 00 date: 05/09/18 13:59: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, Duration: 30 day, Stop date: 06/08/18 14:58:00 CDT, PRN Line Flush BD Normal No Notes: Memori a Saline 3-07 (Same as: l Flush 19:59: BD [place] 00 Posiflush) BD Normal No Notes: Memori [...] 3-07 (Same as: l Flush 19:58: BD [place] 00 Posiflush) tramadol 2019- Yes 100 mg = 2 [...] mL, Route: l mg 19:28: INJ, Drug [place] injection 00 form: SOLN, ONCE, Dosing Weight 80.909, kg, Start date: 05/09/18 13:28: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, Stop date: 05/09/18 13:28: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, [place] CVAD < 7 [place] alteplase 2 2019-0 No 1 mg, 1 Mem oria mg 3-07 mL, Route: l injection 19:28: INJ, Drug Her fernandes 00 form: SOLN, ONCE, Dosing Weight 80.909, kg, Start date: 05/09/18 13:28: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, Stop date: 05/09/18 13:28: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, [place] CVAD < 7 [place] Cathflo 2019-0 No 1 mg, 1 Memoria Activase 2 3-07 mL, Route: l mg 19:28: INJ, Drug [place] injection 00 form: SOLN, ONCE, Dosing Weight 80.909, kg, Start date: 05/09/18 13:28: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, Stop date: 05/09/18 13:28: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, [place] CVAD < 7 [place] alteplase 2 2019-0 No 1 mg, 1 Mem oria mg 3-07 mL, Route: l injection 19:28: INJ, Drug Her fernandes 00 form: SOLN, ONCE, Dosing Weight 80.909, kg, Start date: 05/09/18 13:28: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, Stop date: 05/09/18 13:28: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, [place] CVAD < 7 [place] Cathflo 2019-0 No 1 mg, 1 [facility] Activase 2 3-07 mL, Route: l mg 19:28: INJ, Drug [place] injection 00 form: SOLN, ONCE, Dosing Weight 80.909, kg, Start date: 05/09/18 13:28: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, Stop date: 05/09/18 13:28: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, [place] CVAD < 7 [place] alteplase 2 2019-0 No 1 mg, 1 Mem oria mg 3-07 mL, Route: l injection 19:28: INJ, Drug Her fernandes 00 form: SOLN, ONCE, Dosing Weight 80.909, kg, Start date: 05/09/18 13:28: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, Stop date: 05/09/18 13:28: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, [place] CVAD < 7 [place] Cathflo 2019-0 No 1 mg, 1 [facility] Activase 2 3-07 mL, Route: l mg 19:28: INJ, Drug [place] injection 00 form: SOLN, ONCE, Dosing Weight 80.909, kg, Start date: 05/09/18 13:28: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, Stop date: 05/09/18 13:28: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, [place] CVAD < 7 [place] alteplase 2 2019-0 No 1 mg, 1 Mem oria mg 3-07 mL, Route: l injection 19:28: INJ, Drug Her fernandes 00 form: SOLN, ONCE, Dosing Weight 80.909, kg, Start date: 05/09/18 13:28: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, Stop date: 05/09/18 13:28: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, [place] CVAD < 7 [place] Cathflo 2019-0 No 1 mg, 1 [facility] Activase 2 3-07 mL, Route: l mg 19:28: INJ, Drug [place] injection 00 form: SOLN, ONCE, Dosing Weight 80.909, kg, Start date: 05/09/18 13:28: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, Stop date: 05/09/18 13:28: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, [place] CVAD < 7 [place] alteplase 2 2019-0 No 1 mg, 1 Mem oria mg 3-07 mL, Route: l injection 19:28: INJ, Drug Her fernandes 00 form: SOLN, ONCE, Dosing Weight 80.909, kg, Start date: 05/09/18 13:28: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, Stop date: 05/09/18 13:28: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, [place] CVAD < 7 [place] Cathflo 2019-0 No 1 mg, 1 [facility] Activase 2 3-07 mL, Route: l mg 19:28: INJ, Drug [place] injection 00 form: SOLN, ONCE, Dosing Weight 80.909, kg, Start date: 05/09/18 13:28: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, Stop date: 05/09/18 13:28: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, [place] CVAD < 7 [place] alteplase 2 2019-0 No 1 mg, 1 Mem oria mg 3-07 mL, Route: l injection 19:28: INJ, Drug Her fernandes 00 form: SOLN, ONCE, Dosing Weight 80.909, kg, Start date: 05/09/18 13:28: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, Stop date: 05/09/18 13:28: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, [place] CVAD < 7 [place] Morphine 2018-0 No Notes: Memoria -07 (Same l 19:09: as:MORPhin [place] 00 e Sulfate) Acetaminoph No Notes: Do M emoria en 05-09 not exceed l 19:09: 4 gm/day. [place] 00 (Same as: Tylenol) Ondansetron 2018-0 No Notes: Kuldeep teto -07 (Same as: l 19:09: Zofran [place] 00 ODT) Glucagon 2018-0 No 1 mg, Memoria 3-07 Route: IM, l 19:09: Drug form: [place] 00 PDR/INJ, PRN, Dosing Weight 80.909, kg, PRN Blood Glucose Results, Start date: 05/09/18 13:09: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, Duration: 30 day, Stop date: 06/08/18 14:08:00 CDT Dextrose 2018-0 No 12.5 gm, Memor ia 50% Syringe 05-09 25 mL, l 19:09: Route: [place] 00 IVP, Drug Form: INJ, Dosing Weight 80.909, kg, PRN, PRN Blood Glucose Results, Start date: 05/09/18 13:09: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, Duration: 30 day, Stop date: 06/08/18 14:08:00 CDT Morphine 2019-0 No Notes: [facility]oria 3-07 (Same l 19:09: as:MORPhin [place] 00 e Sulfate) Acetaminoph 2018- No Notes: Do M emoria en 3-07 not exceed l 19:09: 4 gm/day. [place] 00 (Same as: Tylenol) Ondansetron 2018- No Notes: Kuldeep teto 3-07 (Same as: l 19:09: Zofran [place] 00 ODT) Glucagon 2019- No 1 mg, Memoria 3-07 Route: IM, l 19:09: Drug form: [place] 00 PDR/INJ, PRN, Dosing Weight 80.909, kg, PRN Blood Glucose Results, Start date: 05/09/18 13:09: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, Duration: 30 day, Stop date: 06/08/18 14:08:00 CDT Dextrose 2019-0 No 12.5 gm, Memor ia 50% Syringe 05-09 25 mL, l 19:09: Route: [place] 00 IVP, Drug Form: INJ, Dosing Weight 80.909, kg, PRN, PRN Blood Glucose Results, Start date: 05/09/18 13:09: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, Duration: 30 day, Stop date: 06/08/18 14:08:00 CDT Morphine 2019-0 No Notes: [facility] 3-07 (Same l 19:09: as:MORPhin [place] 00 e Sulfate) Acetaminoph No Notes: Do M emoria en 3-07 not exceed l 19:09: 4 gm/day. [place] 00 (Same as: Tylenol) Ondansetron 2018-0 No Notes: Kuldeep teto 3-07 (Same as: l 19:09: Zofran [place] 00 ODT) Morphine 2018-0 No Notes: [facility] 3-07 (Same l 19:09: as:MORPhin [place] 00 e Sulfate) Acetaminoph 2018-0 No Notes: Do M emoria en 3-07 not exceed l 19:09: 4 gm/day. [place] 00 (Same as: Tylenol) Ondansetron 2018-0 No Notes: Kuldeep teto 3-07 (Same as: l 19:09: Janes Ahuja ODT) Glucagon 2019-0 No 1 mg, [facility] 3-07 Route: IM, l 19:09: Drug form: [place] 00 PDR/INJ, PRN, Dosing Weight 80.909, kg, PRN Blood Glucose Results, Start date: 05/09/18 13:09: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, Duration: 30 day, Stop date: 06/08/18 14:08:00 CDT Dextrose 2018-0 No 12.5 gm, Memor ia 50% Syringe 3-07 25 mL, l 19:09: Route: [place] 00 IVP, Drug Form: INJ, Dosing Weight 80.909, kg, PRN, PRN Blood Glucose Results, Start date: 05/09/18 13:09: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, Duration: 30 day, Stop date: 06/08/18 14:08:00 CDT Glucagon 2018-0 No 1 mg, Memoria 05-09 Route: IM, l 19:09: Drug form: [place] 00 PDR/INJ, PRN, Dosing Weight 80.909, kg, PRN Blood Glucose Results, Start date: 05/09/18 13:09: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, Duration: 30 day, Stop date: 06/08/18 14:08:00 CDT Dextrose 2019-0 No 12.5 gm, Memor ia 50% Syringe 3-07 25 mL, l 19:09: Route: [place] 00 IVP, Drug Form: INJ, Dosing Weight 80.909, kg, PRN, PRN Blood Glucose Results, Start date: 05/09/18 13:09: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, Duration: 30 day, Stop date: 06/08/18 14:08:00 CDT Morphine 2018-0 No Notes: [facility]oria 3- (Same l 19:09: as:MORPhin [place] 00 e Sulfate) Acetaminoph 2018-0 No Notes: Do M emoria en 05-09 not exceed l 19:09: 4 gm/day. [place] 00 (Same as: Tylenol) Ondansetron 2018-0 No Notes: Kuldeep teto 3-07 (Same as: l 19:09: Zofran [place] 00 ODT) Glucagon 2019-0 No 1 mg, Memoria 3-07 Route: IM, l 19:09: Drug form: [place] 00 PDR/INJ, PRN, Dosing Weight 80.909, kg, PRN Blood Glucose Results, Start date: 05/09/18 13:09: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, Duration: 30 day, Stop date: 06/08/18 14:08:00 CDT Dextrose 2019-0 No 12.5 gm, Memor ia 50% Syringe 3-07 25 mL, l 19:09: Route: [place] 00 IVP, Drug Form: INJ, Dosing Weight 80.909, kg, PRN, PRN Blood Glucose Results, Start date: 05/09/18 13:09: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, Duration: 30 day, Stop date: 06/08/18 14:08:00 CDT Morphine 2018-0 No Notes: [facility] 3- (Same l 19:09: as:MORPhin [place] 00 e Sulfate) Acetaminoph 2018-0 No Notes: Do M emoria en - not exceed l 19:09: 4 gm/day. [place] 00 (Same as: Tylenol) Ondansetron 2018-0 No Notes: Kuldeep teto 3-07 (Same as: l 19:09: Zofran [place] 00 ODT) Glucagon 2018-0 No 1 mg, Memoria 3-07 Route: IM, l 19:09: Drug form: [place] 00 PDR/INJ, PRN, Dosing Weight 80.909, kg, PRN Blood Glucose Results, Start date: 05/09/18 13:09: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, Duration: 30 day, Stop date: 06/08/18 14:08:00 CDT Dextrose 2019-0 No 12.5 gm, Memor ia 50% Syringe 3-07 25 mL, l 19:09: Route: [place] 00 IVP, Drug Form: INJ, Dosing Weight 80.909, kg, PRN, PRN Blood Glucose Results, Start date: 05/09/18 13:09: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, Duration: 30 day, Stop date: 06/08/18 14:08:00 CDT TRAMADOL 50 2019-0 Yes [id number] TAKE ONE [facility] mg tablet 3- TABLET BY [facility] o f 00:00: MOUTH FOUR [place] 00 TIMES A [facility] DAY [facility] TRAMADOL 50 2019-0 Yes [id number] TAKE ONE [facility] mg tablet 3-07 TABLET BY it[facility] o f 00:00: MOUTH FOUR 00 TIMES A Medical DAY [facility] TRAMADOL 50 2019-0 2020- No [id number] TAKE ONE [facility] mg tablet 3-07 09-10 TABLET BY [facility] of 00:00: 00:00 MOUTH FOUR [place] 00 :00 TIMES A Medical DAY [facility] TRAMADOL 50 2018-0 2020- No [id number] TAKE ONE [facility] mg tablet 3-07 09-10 TABLET BY [facility]y of 00:00: 00:00 MOUTH FOUR [place] 00 :00 TIMES A Medical DAY Branch midodrine 2019-0 Yes 2.5mg Take 1 [facility] 2.5 mg 2-08 tablet by [facility] of tablet 00:00: mouth 2 [place] 00 (two) Medical times Branch daily. midodrine [id number] Yes 2.5mg Take 1 [facility] 2.5 mg 2-08 tablet by [facility] of tablet 00:00: mouth 2 [place] (two) Medical times [facility] daily. midodrine 2018-0 2020- No 2.5mg Take 1 [facility] ers 2.5 mg 2-08 09-10 tablet by [facility] of tablet 00:00: 00:00 mouth 2 [place] 00 :00 (two) Medical times Branch daily. midodrine 2018-0 2020- No 2.5mg Take 1 [facility] ers 2.5 mg 2-08 09-10 tablet by [facility] of tablet 00:00: 00:00 mouth 2 [place] 00 :00 (two) Medical times [facility] daily. Lasix 2017-03 No Notes: [facility]oria 2-29 (Same as: l 15:00: Lasix) May Cody 00 cause GI upset. Give with food or milk. Lasix 2017-03 No Notes: [facility] 2-29 (Same as: l 15:00: Lasix) May Cody 00 cause GI upset. Give with food or milk. Lasix 2017-03 No Notes: [facility] 2-29 (Same as: l 15:00: Lasix) May [place] 00 cause GI upset. Give with food or milk. Lasix 2017-03 No Notes: [facility] 2-29 (Same as: l 15:00: Lasix) May Cody 00 cause GI upset. Give with food or milk. Lasix 2017-03 No Notes: [facility] 2-29 (Same as: l 15:00: Lasix) May Cody 00 cause GI upset. Give with food or milk. Lasix 2017- No Notes: [facility] 2-29 (Same as: l 15:00: Lasix) May Seymour 00 cause GI upset. Give with food or milk. Potassium 2017-03 No Notes: Memori a Chloride 2-28 (Same as: l 18:32: K-Dur 20) Cody 00 "Do Not Crush" Give with food and full glass of water For patients unable to swallow tablet, dissolve in one half glass of water. Allow about 2 minutes for the tablets to disintegra te. Stir before giving to prepare slurry and administer . Please exclude Patient s with feeding tube less than 14 [place] (Dobhoff, J-tube etc) and pediatric and patients. Potassium 2017-03 No Notes: [facility] a Chloride 2-28 (Same as: l 18:32: K-Dur 20) Cody 00 "Do Not Crush" Give with food and full glass of water For patients unable to swallow tablet, dissolve in one half glass of water. Allow about 2 minutes for the tablets to disintegra te. Stir before giving to prepare slurry and administer . Please exclude Patient s with feeding tube less than 14 [place] (Dobhoff, J-tube etc) and pediatric and patients. Potassium 2017-03 No Notes: Memori a Chloride 2-28 (Same as: l 18:32: K-Dur 20) Cody 00 "Do Not Crush" Give with food and full glass of water For patients unable to swallow tablet, dissolve in one half glass of water. Allow about 2 minutes for the tablets to disintegra te. Stir before giving to prepare slurry and administer . Please exclude Patient s with feeding tube less than 14 [place] (Dobhoff, J-tube etc) and pediatric and patients. Potassium 2017-03 No Notes: Memori a Chloride 2-28 (Same as: l 18:32: K-Dur 20) Cody 00 "Do Not Crush" Give with food and full glass of water For patients unable to swallow tablet, dissolve in one half glass of water. Allow about 2 minutes for the tablets to disintegra te. Stir before giving to prepare slurry and administer . Please exclude Patient s with feeding tube less than 14 [place] (Dobhoff, J-tube etc) and pediatric and patients. Potassium 2017-03 No Notes: Memori a Chloride 2-28 (Same as: l 18:32: K-Dur 20) [place] 00 "Do Not Crush" Give with food and full glass of water For patients unable to swallow tablet, dissolve in one half glass of water. Allow about 2 minutes for the tablets to disintegra te. Stir before giving to prepare slurry and administer . Please exclude Patient s with feeding tube less than 14 [place]ian (Dobhoff, J-tube etc) and pediatric and patients. Potassium 2017-03 No Notes: Memori a Chloride 2-28 (Same as: l 18:32: K-Dur 20) Cody 00 "Do Not Crush" Give with food and full glass of water For patients unable to swallow tablet, dissolve in one half glass of water. Allow about 2 minutes for the tablets to disintegra te. Stir before giving to prepare slurry and administer . Please exclude Patient s with feeding tube less than 14 [place] (Dobhoff, J-tube etc) and pediatric and patients. Rocephin 1 2017-03 No 2 gm, IV, Me moria g injection 2-28 Q24H, X 14 l 18:26: day, # 14 [place] 00 ea, 0 Refill(s), other Furosemide 2017-03 No 20 mg = 1 Me moria 20 MG Oral 2-28 tab, PO, l Tablet 18:26: Daily, # [place] 00 30 tab, 0 Refill(s), Pharmacy: [facility] [id number] Rocephin 1 2017-03 No 2 gm, IV, Me moria g injection 2-28 Q24H, X 14 l 18:26: day, # 14 [place] 00 ea, 0 Refill(s), other Furosemide 2017-03 No 20 mg = 1 Me moria 20 MG Oral 2-28 tab, PO, l Tablet 18:26: Daily, # [place] 00 30 tab, 0 Refill(s), Pharmacy: [facility] [id number] Rocephin 1 2017-03 No 2 gm, IV, Me moria g injection 2-28 Q24H, X 14 l 18:26: day, # 14 [place] 00 ea, 0 Refill(s), other Furosemide 2017-03 No 20 mg = 1 Me moria 20 MG Oral 2-28 tab, PO, l Tablet 18:26: Daily, # [place] 00 30 tab, 0 Refill(s), Pharmacy: [facility] [facility] [address] [facility] 2017-03 No 2 gm, IV, Me moria g injection 2-28 Q24H, X 14 l 18:26: day, # 14 [place] 00 ea, 0 Refill(s), other Furosemide 2017-03 No 20 mg = 1 Me moria 20 MG Oral 2-28 tab, PO, l Tablet 18:26: Daily, # [place] 00 30 tab, 0 Refill(s), Pharmacy: [facility] [facility] [address] [facility] 1 2017-03 No 2 gm, IV, Me moria g injection 2-28 Q24H, X 14 l 18:26: day, # 14 [place] 00 ea, 0 Refill(s), other Furosemide 2017-03 No 20 mg = 1 Me moria 20 MG Oral 2-28 tab, PO, l Tablet 18:26: Daily, # [place] 00 30 tab, 0 Refill(s), Pharmacy: [facility] [facility] [address] [facility] 2017-03 No 2 gm, IV, Me moria g injection 2-28 Q24H, X 14 l 18:26: day, # 14 [place] 00 ea, 0 Refill(s), other Furosemide 2017-03 No 20 mg = 1 Me moria 20 MG Oral 2-28 tab, PO, l Tablet 18:26: Daily, # [place] 00 30 tab, 0 Refill(s), Pharmacy: [facility] [address] Potassium 2017-03 No Notes: Memori a Chloride 2-28 (Same as: l 16:19: K-Dur 20) [place] 00 "Do Not Crush" Give with food and full glass of water For patients unable to swallow tablet, dissolve in one half glass of water. Allow about 2 minutes for the tablets to disintegra te. Stir before giving to prepare slurry and administer . Please exclude Patient s with feeding tube less than 14 [place] (Dobhoff, J-tube etc) and pediatric and patients. [...] s with feeding tube less than 14 [place] (Dobhoff, J-tube etc) and pediatric and patients. Potassium 2017-03 No Notes: Memori a Chloride 2-28 (Same as: l 16:19: K-Dur 20) [place] 00 "Do Not Crush" Give with food and full glass of water For patients unable to swallow tablet, dissolve in one half glass of water. Allow about 2 minutes for the tablets to disintegra te. Stir before giving to prepare slurry and administer . Please exclude Patient s with feeding tube less than 14 [place] (Dobhoff, J-tube etc) and pediatric and patients. [...] s with feeding tube less than 14 [place] (Dobhoff, J-tube etc) and pediatric and patients. [...] s with feeding tube less than 14 [place] (Dobhoff, J-tube etc) and pediatric and patients. [...] s with feeding tube less than 14 [place] (Dobhoff, J-tube etc) and pediatric and patients. [...] n with 05-02 (Same l minerals 15:00: as:Thera-Bradley Her fernandes 00 , Theragran- M) WASTE: F/P - Black; E - Municipal Trash Bin Give with food. atorvastati 2017-03 No Notes: Kuldeep teto n 2-28 (Same as: l 03:00: Lipitor) [place] 00 Trazodone 2017-03 No Notes: Memori a Hydrochlori 2-28 (Same As: l de 50 MG 03:00: Desyrel) Marcia nn Oral Tablet 00 Mirtazapine 2017-03 No Notes: Kuldeep teto 2-28 (Same l 03:00: as:Remeron [place] 00 ) atorvastati 2017-03 No Notes: Kuldeep teto n 2-28 (Same as: l 03:00: Lipitor) [place] 00 Trazodone 2017-03 No Notes: Memori a Hydrochlori 2-28 (Same As: l de 50 MG 03:00: Desyrel) Marcia nn Oral Tablet 00 Mirtazapine 2017-03 No Notes: Kuldeep teto 2-28 (Same l 03:00: as:Remeron ) atorvastati 2017-03 No Notes: Kuldeep teto n 2-28 (Same as: l 03:00: Lipitor) [place] Trazodone 2017-03 No Notes: Memori a Hydrochlori 2-28 (Same As: l de 50 MG 03:00: Desyrel) Marcia nn Oral Tablet 00 Mirtazapine 2017-03 No Notes: Kuldeep teto 2-28 (Same l 03:00: as:Remeron ) atorvastati 2017-03 No Notes: Kuldeep teto n 2-28 (Same as: l 03:00: Lipitor) [place] Trazodone 2017-03 No Notes: Memori a Hydrochlori 2-28 (Same As: l de 50 MG 03:00: Desyrel) Marcia nn Oral Tablet 00 Mirtazapine 2017-03 No Notes: Kuldeep teto 2-28 (Same l 03:00: as:Remeron ) atorvastati 2017-03 No Notes: Kuldeep teto n 2-28 (Same as: l 03:00: Lipitor) [place] Trazodone 2017-03 No Notes: Memori a Hydrochlori 2-28 (Same As: l de 50 MG 03:00: Desyrel) Marcia nn Oral Tablet Mirtazapine 2017-03 No Notes: Kuldeep teto 2-28 (Same l 03:00: as:ero ) atorvastati 2017-03 No Notes: Kuldeep teto n 2-28 (Same as: l 03:00: Lipitor) [place] Trazodone 2017-03 No Notes: Memori a Hydrochlori 2-28 (Same As: l de 50 MG 03:00: Desyrel) Marcia nn Oral Tablet 00 Mirtazapine 2017-03 No Notes: Kuldeep teto 2-28 (Same l 03:00: as:Remeron ) Beneprotein 2017-03 No Notes: Kuldeep teto 7 gm pkt 2-27 (Same as: l 22:30: Beneprotei n) Beneprotein 2017-03 No Notes: Kuldeep teto 7 gm pkt 2-27 (Same as: l 22:30: Beneprotei [place] 00 n) Beneprotein 2017-03 No Notes: Kuldeep teto 7 gm pkt 2-27 (Same as: l 22:30: Beneprotei [place] 00 n) Beneprotein 2017-03 No Notes: Kuldeep teto 7 gm pkt 2-27 (Same as: l 22:30: Beneprotei [place] 00 n) Beneprotein 2017-03 No Notes: Kuldeep teto 7 gm pkt 2-27 (Same as: l 22:30: Beneprotei [place] 00 n) Beneprotein 2017-03 No Notes: Kuldeep [...] l 15:24: food. iron [place] 00 elemental 12mq=338re as ferrous sulfate Dose=___mg elemental iron duloxetine 2017-03 No Notes: Memor ia 2-27 (Same as: l 15:24: Cymbalta) Cody (Do Not Crush) clopidogrel 2017-03 No Notes: Kuldeep teto 2-27 (Same As: l 15:24: Plavix) [place] Buspirone 2017-03 No Notes: Memori a 2-27 (Same As: l 15:24: BuSpar) [place] Vancomycin 2017-03 No 2001 mg: Me moria 2-27 infuse l 15:24: over 2.5 [place] 00 hours metoprolol 2017-03 No Notes: Memor ia extended 2-27 (Same as: l release 15:24: Toprol XL) Herm ladi 00 Do Not Crush Lisinopril 2017-03 No Notes: Memor ia 2-27 (Same as: l 15:24: Prinivil, [place] 00 Zestril) ferrous 2017-03 No Notes: Memoria sulfate 2-27 Give with l 15:24: food. iron [place] 00 elemental [id number] as ferrous sulfate Dose=___mg elemental iron duloxetine 2017-03 No Notes: Memor ia 2-27 (Same as: l 15:24: Cymbalta) [place] (Do Not Crush) clopidogrel 2017-03 No Notes: Kuldeep teto 2-27 (Same As: l 15:24: Plavix) [place] 00 Buspirone 2017-03 No Notes: Memori a 2-27 (Same As: l 15:24: BuSpar) [place] 00 Vancomycin 2017-03 No 2001 mg: Me [...] with l 15:24: food. iron [place] elemental [id number] as ferrous sulfate Dose=___mg elemental iron duloxetine 2017-03 No Notes: Memor ia 2-27 (Same as: l 15:24: Cymbalta) [place] 00 (Do Not Crush) clopidogrel 2017-03 No Notes: Kuldeep teto 2-27 (Same As: l 15:24: Plavix) [place] 00 Buspirone 2017-03 No Notes: Memori a 2-27 (Same As: l 15:24: BuSpar) [place] 00 Vancomycin 2017-03 No 2001 mg: Me moria 2-27 infuse l 15:24: over 2.5 [place] 00 hours metoprolol 2017-03 No Notes: Memor ia extended 2-27 (Same as: l release 15:24: Toprol XL) Herm ladi 00 Do Not Crush Lisinopril 2017-03 No Notes: Memor ia 2-27 (Same as: l 15:24: Prinivil, [place] 00 Zestril) ferrous 2017-03 No Notes: Memoria sulfate 2-27 Give with l 15:24: food. iron [place] 00 elemental [id number] as ferrous sulfate Dose=___mg elemental iron duloxetine 2017-03 No Notes: Memor ia 2-27 (Same as: l 15:24: Cymbalta) [place] 00 (Do Not Crush) clopidogrel 2017-03 No Notes: Kuldeep etto 2-27 (Same As: l 15:24: Plavix) [place] [...] 2-27 Give with l 15:24: food. iron [place] 00 elemental [id number] as ferrous sulfate Dose=___mg elemental iron duloxetine 2017-03 No Notes: Memor ia 2-27 (Same as: l 15:24: Cymbalta) [place] 00 (Do Not Crush) clopidogrel 2017-03 No Notes: Kuldeep teto 2-27 (Same As: l 15:24: Plavix) [place] 00 Buspirone 2017-03 No Notes: Memori a 2-27 (Same As: l 15:24: BuSpar) [place] 00 Vancomycin 2017-03 No 2001 mg: Me moria 2-27 infuse l 15:24: over 2.5 [place] 00 hours metoprolol 2017-03 No Notes: Memor ia extended 2-27 (Same as: l release 15:24: Toprol XL) Herm ladi 00 Do Not Crush Lisinopril 2017-03 No Notes: Memor ia 2-27 (Same as: l 15:24: Prinivil, [place] 00 Zestril) ferrous 2017-03 No Notes: Memoria sulfate 2-27 Give with l 15:24: food. iron elemental [id number] as ferrous sulfate Dose=___mg elemental iron duloxetine 2017-03 No Notes: Memor ia 2-27 (Same as: l 15:24: Cymbalta) [place] 00 (Do Not Crush) clopidogrel 2017-03 No Notes: Kuldeep teto 2-27 (Same As: l 15:24: Plavix) [place] 00 Buspirone 2017-03 No Notes: Memori a [...] 0.9% 2-27 (Same as: l 15:00: BD [place] 00 Posiflush) Furosemide 2017-03 No Notes: Memor ia 2-27 (Same as: l 15:00: Lasix) [place] 00 MEDICATION WASTE Product Size: 40 mg [...] 0.9% 2-27 (Same as: l 15:00: BD [place] 00 Posiflush) Furosemide 2017-03 No Notes: Memor ia 2-27 (Same as: l 15:00: Lasix) [place] 00 MEDICATION WASTE Product Size: 40 mg Product Wasted: ___ mg Enoxaparin 2017-03 No Notes: Memor ia 2-27 (Same as: l 15:00: Lovenox) [place] Saline 2017-03 No Notes: Memoria Flush 0.9% 2-27 (Same as: l 15:00: BD [place] 00 Posiflush) Furosemide 2017-03 No Notes: Memor ia - (Same as: l 15:00: Lasix) [place] 00 MEDICATION WASTE Product Size: 40 mg Product Wasted: ___ mg Enoxaparin 2017-03 No Notes: Memor ia 2- (Same as: l 15:00: Lovenox) [place] Saline 2017-03 No Notes: Memoria Flush 0.9% -27 (Same as: l 15:00: BD [place] Posiflush) Furosemide 2017-03 No Notes: Memor ia - (Same as: l 15:00: Lasix) Cody MEDICATION WASTE Product Size: 40 mg Product Wasted: ___ mg Dexamethaso 2017-03 No Notes: Kuldeep teto ne 05-01 Concentrat l 09:59: ion: [place] 00 4mg/ml Dexamethaso 2017-03 No Notes: Kuldeep teto ne 05-01 Concentrat l 09:59: ion: [place] 00 4mg/ml Dexamethaso 2017-03 No Notes: Kuldeep [...] 00 4mg/ml Benadryl 2017-03 No Notes: Memoria 2- (Same as: l 08:25: Benadryl) [place] Benadryl 2017-03 No Notes: Memoria 2- (Same as: l 08:25: Benadryl) [place] Benadryl 2017-03 No Notes: Memoria 2- (Same as: l 08:25: Benadryl) [place] Benadryl 2017-03 No Notes: Memoria 2-27 (Same as: l 08:25: Benadryl) [place] 00 Benadryl 2017-03 No Notes: Memoria 2-27 (Same as: l 08:25: Benadryl) [place] 00 Benadryl 2017-03 No Notes: Memoria 2-27 (Same as: l 08:25: Benadryl) [place] 00 Saline 2017-03 No Notes: Memoria Flush 0.9% 2-27 (Same as: l 08:24: BD [place] 00 Posiflush) Saline 2017-03 No Notes: Memoria Flush 0.9% 2-27 (Same as: l 08:24: BD [place] 00 Posiflush) Saline 2017-03 No Notes: Memoria Flush 0.9% 2-27 (Same as: l 08:24: BD [place] 00 Posiflush) Saline 2017-03 No Notes: Memoria Flush 0.9% 2-27 (Same as: l 08:24: BD [place] 00 Posiflush) Saline 2017-03 No Notes: Memoria Flush 0.9% 2-27 (Same as: l 08:24: BD [place] 00 Posiflush) Saline 2017-03 No Notes: Memoria Flush 0.9% 2-27 (Same as: l 08:24: BD [place] 00 Posiflush) Benadryl 2017-03 No Notes: Memoria 2-27 (Same as: l 06:45: Benadryl) [place] Dexamethaso 2017-03 No 12 mg, 3 Me moria ne 2-27 mL, Route: l 06:45: IVP, Drug [place] 00 form: INJ, ONCE, Dosing Weight 83.182, kg, Priority: STAT, 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 date: 02/28/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, 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 date: 02/28/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 Benadryl 2017-03 No Notes: Memoria 2-27 (Same as: l 06:45: Benadryl) [place] Dexamethaso 2017-03 No 12 mg, 3 Me moria ne 2-27 mL, Route: l 06:45: IVP, Drug [place] 00 form: INJ, ONCE, Dosing Weight 83.182, kg, Priority: STAT, Start date: 02/28/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, 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 date: 02/28/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 Benadryl 2017-03 No Notes: Memoria 2-27 (Same as: l 06:45: Benadryl) [place] Dexamethaso 2017-03 No 12 mg, 3 Me moria ne 2-27 mL, Route: l 06:45: IVP, Drug [place] 00 form: INJ, ONCE, Dosing Weight 83.182, kg, Priority: STAT, Start date: 02/28/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, Stop date: 02/28/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 Benadryl 2017-03 No Notes: Memoria 2-27 (Same as: l 06:45: Benadryl) [place] 00 Dexamethaso 2017-03 No 12 mg, 3 Me moria ne 2-27 mL, Route: l 06:45: IVP, Drug [place] 00 form: INJ, ONCE, Dosing Weight 83.182, kg, Priority: STAT, Start date: 02/28/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, Stop date: 02/28/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 Benadryl 2017-03 No Notes: Memoria 2-27 (Same as: l 06:45: Benadryl) [place] Dexamethaso 2017-03 No 12 mg, 3 Me moria ne 2-27 mL, Route: l 06:45: IVP, Drug [place] 00 form: INJ, ONCE, Dosing Weight 83.182, kg, Priority: STAT, Start date: 02/28/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, Stop date: 02/28/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 Benadryl 2017-03 No Notes: Memoria 2-27 (Same as: l 06:45: Benadryl) [place] Dexamethaso 2017-03 No 12 mg, 3 Me moria ne 2-27 mL, Route: l 06:45: IVP, Drug [place] 00 form: INJ, ONCE, Dosing Weight 83.182, kg, Priority: STAT, Start date: 02/28/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, Stop date: 02/28/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 tramadol 2017-03 No 50 mg = 1 [...] 2-20 250 mL, l mL-NaCl 17:58: IVPB, Cody 0.9% 00 Q12H, 0 intravenous Refill(s) solution [...] tab, PO, l tablet 17:58: Daily, 0 Cody 00 Refill(s) ferrous 2017-03 No 325 mg = 1 Kuldeep teto sulfate 325 2-20 tab, PO, l MG Oral 17:58: Daily, 0 Arsenio n Tablet 00 Refill(s) vancomycin 2017-03 No 1.25 gm = Me moria 1.25 g/250 2-20 250 mL, l mL-NaCl 17:58: IVPB, Cody 0.9% 00 Q12H, 0 intravenous Refill(s) solution Mirtazapine 2017-03 No 15 mg = 1 M emoria 15 MG Oral 2-20 tab, PO, l Tablet 17:58: Bedtime, 0 Marcia nn 00 Refill(s) lisinopril 2017-03 No 5 mg = 1 Mem oria 5 mg oral 2-20 tab, PO, l tablet 17:58: Daily, 0 [place] 00 Refill(s) ferrous 2017-03 No 325 mg [...] tab, PO, l tablet 17:58: Daily, 0 [place] 00 Refill(s) ferrous 2017-03 No 325 mg [...] tab, PO, l tablet 17:58: Daily, 0 [place] 00 Refill(s) ferrous 2017-03 No 325 mg = 1 Kuldeep teto sulfate 325 2-20 tab, PO, l MG Oral 17:58: Daily, 0 Arsenio n Tablet 00 Refill(s) vancomycin 2017-03 No 1.25 gm = Me moria 1.25 g/250 2-20 250 mL, l mL-NaCl 17:58: IVPB, Cody 0.9% 00 Q12H, 0 intravenous Refill(s) solution Mirtazapine 2017-03 No 15 mg = 1 M emoria 15 MG Oral 2-20 tab, PO, l Tablet 17:58: Bedtime, 0 Marcia nn 00 Refill(s) lisinopril 2017-03 No 5 mg = 1 Mem oria 5 mg oral 2-20 tab, PO, l tablet 17:58: Daily, 0 [place] 00 Refill(s) ferrous 2017-03 No 325 mg [...] moria 2-20 infuse l 03:00: over 2.5 [place] 00 hours Vancomycin 2017-03 No 2001 mg: Me moria 2-20 infuse l 03:00: over 2.5 [place] 00 hours Fleet Enema 2017-03 No 12 years, Memoria 2-19 Pediatric l 17:47: Dosing [place] 00 Fleet Enema 2017-03 No 12 years, Memoria 2-19 Pediatric l 17:47: Dosing [place] 00 Fleet Enema 2017-03 No 12 years, Memoria 2-19 Pediatric l 17:47: Dosing [place] 00 Fleet Enema 2017-03 No 12 years, Memoria 2-19 Pediatric l 17:47: Dosing [place] 00 Fleet Enema 2017-03 No 12 years, Memoria 2-19 Pediatric l 17:47: Dosing [place] 00 Fleet Enema 2017-03 No 12 years, Memoria 2-19 Pediatric l 17:47: Dosing [place] 00 Lisinopril 2017-03 No Notes: Memor ia 2-19 (Same as: l 15:18: Prinivil, [place] 00 Zestril) Lisinopril 2017-03 No Notes: Memor ia 2-19 (Same as: l 15:18: Prinivil, [place] 00 Zestril) Lisinopril 2017-03 No Notes: Memor ia 2-19 (Same as: l 15:18: Prinivil, [place] 00 Zestril) Lisinopril 2017-03 No Notes: Memor ia 2-19 (Same as: l 15:18: Prinivil, [place] 00 Zestril) Lisinopril 2017-03 No Notes: Memor ia 2-19 (Same as: l 15:18: Prinivil, [place] 00 Zestril) Lisinopril 2017-03 No Notes: Memor ia 2-19 (Same as: l 15:18: Prinivil, [place] 00 Zestril) Sodium 2017-03 No 25 mL, Memoria Chloride 2-18 Route: IV, l 0.9% IV 14:04: Start [place] 00 date: 02/19/18 8:04: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, Duration: 30 day, Stop date: 03/21/18 8:03: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, PRN Line Flush BD Normal 2017-03 No Notes: Memori a Saline 2-18 (Same as: l Flush 14:04: BD [place] Posiflush) Sodium 2017-03 No 25 mL, Memoria Chloride 2-18 Route: IV, l 0.9% IV 14:04: Start date: 02/19/18 8:04: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, Duration: 30 day, Stop date: 03/21/18 8:03: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, PRN Line Flush BD Normal 2017-03 No Notes: Memori a Saline 2-18 (Same as: l Flush 14:04: BD [place] Posiflush) Sodium 2017-03 No 25 mL, Memoria Chloride 2-18 Route: IV, l 0.9% IV 14:04: date: 02/19/18 8:04: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, Duration: 30 day, Stop date: 03/21/18 8:03: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, PRN Line Flush BD Normal 2017-03 No Notes: Memori a Saline 2-18 (Same as: l Flush 14:04: BD [place] Posiflush) Sodium 2017-03 No 25 mL, Memoria Chloride 2-18 Route: IV, l 0.9% IV 14:04: date: 02/19/18 8:04: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, Duration: 30 day, Stop date: 03/21/18 8:03: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, PRN Line Flush BD Normal 2017-03 No Notes: Memori a Saline 2-18 (Same as: l Flush 14:04: BD [place] Posiflush) Sodium 2017-03 No 25 mL, Memoria Chloride 2-18 Route: IV, l 0.9% IV 14:04: date: 02/19/18 8:04: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, Duration: 30 day, Stop date: 03/21/18 8:03: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, PRN Line Flush BD Normal 2017-03 No Notes: Memori a Saline 2-18 (Same as: l Flush 14:04: BD [place] 00 Posiflush) Sodium 2017-03 No 25 mL, Memoria Chloride 2-18 Route: IV, l 0.9% IV 14:04: Start Cody 00 date: 02/19/18 8:04: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, Duration: 30 day, Stop date: 03/21/18 8:03: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, PRN Line Flush BD Normal 2017-03 No [...] Memoria Sulfate 2-17 (Zinc l 19:30: sulfate Cody 00 capsule) - 220 mg Zinc sulfate = 50 mg elemental zinc Same as Zinc Sulfate Zinc 2017-03 No Notes: Memoria Sulfate 2-17 (Zinc l 19:30: sulfate [place] 00 capsule) - 220 mg Zinc sulfate = 50 mg elemental zinc Same as Zinc Sulfate Zinc 2017-03 No Notes: Memoria Sulfate 2-17 (Zinc l 19:30: sulfate [place] 00 capsule) - 220 mg Zinc sulfate = 50 mg elemental zinc Same as Zinc Sulfate Beneprotein 2017-03 No Notes: Kuldeep teto 7 gm pkt 2-17 (Same as: l 18:38: Beneprotei [place] 00 n) Beneprotein 2017-03 No Notes: Kuldeep [...] l 16:37: food. iron [place] 00 elemental [id number] as ferrous sulfate Dose=___mg elemental iron ferrous 2017-03 No Notes: Memoria sulfate 2-17 Give with l 16:37: food. iron [place] 00 elemental [id number] as ferrous sulfate Dose=___mg elemental iron ferrous 2017-03 No Notes: Memoria sulfate 2-17 Give with l 16:37: food. iron [place] 00 elemental [id number] as ferrous sulfate Dose=___mg elemental iron ferrous 2017-03 No Notes: Memoria sulfate 2-17 Give with l 16:37: food. iron [place] 00 elemental [id number] as ferrous sulfate Dose=___mg elemental iron ferrous 2017-03 No Notes: Memoria sulfate 2-17 Give with l 16:37: food. iron [place] 00 elemental [id number]=[id number] as ferrous sulfate Dose=___mg elemental iron ferrous 2017-03 No Notes: Memoria sulfate 2-17 Give with l 16:37: food. iron [place] 00 elemental [id number] as ferrous sulfate Dose=___mg elemental iron Docusate 2017-03 No Notes: Memoria Sodium 100 2-17 (Same as: l MG Oral 03:00: Colace) Cody Capsule 00 (Do Not Crush) Docusate 2017-03 No Notes: Memoria Sodium 100 2-17 (Same as: l MG Oral 03:00: Colace) [place] Capsule 00 (Do Not Crush) Docusate 2017-03 No Notes: Memoria Sodium 100 2-17 (Same as: l MG Oral 03:00: Colace) [place] Capsule 00 (Do Not Crush) Docusate 2017-03 No Notes: Memoria Sodium 100 2-17 (Same as: l MG Oral 03:00: Colace) [place] Capsule 00 (Do Not Crush) Docusate 2017-03 [...] Dissolve l 15:49: in 8 oz of Cody 00 water or juice. (Same as: Miralax) Miralax 2017-03 No Notes: Memoria 2-16 Dissolve l 15:49: in 8 oz of [place] 00 water or juice. (Same as: Miralax) Miralax 2017-03 No Notes: Memoria 2-16 Dissolve l 15:49: in 8 oz of [place] 00 water or juice. (Same as: Miralax) Miralax 2017-03 No Notes: Memoria 2-16 Dissolve l 15:49: in 8 oz of [place] 00 water or juice. (Same as: Miralax) Miralax 2017-03 No Notes: Memoria 2-16 Dissolve l 15:49: in 8 oz of [place] 00 water or juice. (Same as: Miralax) Vancomycin 2017-03 No 2001 mg: Me moria 2-15 infuse l 21:00: over 2.5 [place] 00 hours Vancomycin 2017-03 No 2001 mg: [...] moria 2-15 infuse l 21:00: over 2.5 [place] 00 hours Saline 2017-03 No Notes: Memoria Flush 0.9% 2-14 (Same as: l 22:00: BD [place] 00 Posiflush) Saline 2017-03 No Notes: Memoria Flush 0.9% 2-14 (Same as: l 22:00: BD [place] 00 Posiflush) Saline 2017-03 No Notes: Memoria Flush 0.9% 2-14 (Same as: l 22:00: BD [place] 00 Posiflush) Saline 2017-03 No Notes: Memoria Flush 0.9% 2-14 (Same as: l 22:00: BD [place] 00 Posiflush) Saline 2017-03 No Notes: Memoria Flush 0.9% 2-14 (Same as: l 22:00: BD [place] 00 Posiflush) Saline 2017-03 No Notes: Memoria Flush 0.9% 2-14 (Same as: l 22:00: BD [place] 00 Posiflush) Saline 2017-03 No Notes: Memoria Flush 0.9% 2-14 (Same as: l 17:44: BD [place] 00 Posiflush) Saline 2017-03 No Notes: Memoria Flush 0.9% 2-14 (Same as: l 17:44: BD [place] 00 Posiflush) Saline 2017-03 No Notes: Memoria Flush 0.9% 2-14 (Same as: l 17:44: BD [place] 00 Posiflush) Saline 2017-03 No Notes: Memoria Flush 0.9% 2-14 (Same as: l 17:44: BD [place] 00 Posiflush) Saline 2017-03 No Notes: Memoria Flush 0.9% 2-14 (Same as: l 17:44: BD [place] 00 Posiflush) Saline 2017-03 No Notes: Memoria Flush 0.9% 2-14 (Same as: l 17:44: BD [place] 00 Posiflush) morphine 2017-03 No Notes: Memoria Sulfate 2-14 (Same l 15:35: as:MORPhin [place] 00 e Sulfate) morphine 2017-03 No Notes: Memoria Sulfate 2-14 (Same l 15:35: as:MORPhin [place] 00 e Sulfate) morphine 2017-03 No Notes: Memoria Sulfate 2-14 (Same l 15:35: as:MORPhin [place] 00 e Sulfate) morphine 2017-03 No Notes: [...] ia 2-14 (Same as: l 15:00: Lovenox) Cody 00 Docusate 2017-03 No Notes: Memoria Sodium 100 2-14 (Same as: l MG Oral 15:00: Colace) [place] Capsule 00 (Do Not Crush) Enoxaparin 2017-03 No Notes: Memor ia 2-14 (Same as: l 15:00: Lovenox) [place] 00 Docusate 2017-03 No Notes: Memoria Sodium 100 2-14 (Same as: l MG Oral 15:00: Colace) Cody Capsule 00 (Do Not Crush) Enoxaparin 2017-03 [...] (Same as: l MG Oral 15:00: Colace) Cody Capsule 00 (Do Not Crush) Enoxaparin 2017-03 No Notes: Memor ia 2-14 (Same as: l 15:00: Lovenox) Cody 00 morphine 2017-03 No Notes: Memoria 0.5 mg/mL 2-14 (Same l preservativ 13:38: as:MORPhin Seymour e-free 00 e Sulfate) injectable solution morphine 2017-03 No Notes: Memoria 0.5 mg/mL 2-14 (Same l preservativ 13:38: as:MORPhin Cody e-free 00 e Sulfate) injectable solution morphine 2017-03 No Notes: Memoria 0.5 mg/mL 2-14 (Same l preservativ 13:38: as:MORPhin Cody e-free 00 e Sulfate) injectable solution morphine [...] Kuldeep teto 2-14 (Same l 03:00: as:Remeron Cody 00 ) Mirtazapine 2017-03 No Notes: Kuldeep teto 2-14 (Same l 03:00: as:Remeron Cody 00 ) Mirtazapine 2017-03 No Notes: Kuldeep teto 2-14 (Same l 03:00: as:Remeron Cody ) Mirtazapine 2017-03 No Notes: Kuldeep teto 2-14 (Same l 03:00: as:Remeron Cody 00 ) Mirtazapine 2017-03 No Notes: Kuldeep teto 2-14 (Same l 03:00: as:Remeron Cody 00 ) Mirtazapine 2017-03 No Notes: Kuldeep teto 2-14 (Same l 03:00: as:Remeron Cody 00 ) Saline 2017-03 No Notes: Memoria Flush 0.9% 2-13 (Same as: l 23:46: BD Cody 00 Posiflush) Sodium 2017-03 No 1,000 mL, Memori a Chloride 2-13 Rate: 100 l 0.45% IV 23:46: ml/hr, [place] 1,000 mL 00 Infuse over: 10 hr, Route: IV, Dosing Weight 85 kg, Total Volume: 1,000, Start date: 02/14/18 17:46: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, Duration: 30 day, Stop date: 03/16/18 17:45: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, 2.1, m2 Dulcolax 2017-03 No Notes: Memoria Laxative 2-13 (Same As: l 23:46: Dulcolax, [place] 00 Correctol) (Do Not Crush) "Do Not Crush" Ondansetron 2017-03 No Notes: Kuldeep teto 2-13 (Same as: l 23:46: Zofran Cody 00 ODT) Diphenhydra 2017-03 No Notes: Kuldeep teto mine 2-13 (Same as: l 23:46: Benadryl) Cody 00 Acetaminoph 2017-03 No Notes: Max Memoria en 2-13 acetaminop l 23:46: hen = 4000 [place] 00 mg/day (4 gm/day). (Same as: Tylenol) Acetaminoph 2017-03 No Notes: Kuldeep teto en 325 MG / 2-13 (Same as: l Hydrocodone 23:46: [place] Marcia nn Bitartrate 00 325/5) Do 5 MG Oral not exceed Tablet 4gm/day of acetaminop hen. 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 (Same as: Tylenol) Acetaminoph 2017-03 No Notes: Kuldeep teto en 325 MG / 2-13 (Same as: l Hydrocodone 23:46: [place] nn Bitartrate 00 325/5) Do 5 MG Oral not exceed Tablet 4gm/day of acetaminop hen. Saline 2017-03 No Notes: Memoria Flush 0.9% 2-13 (Same as: l 23:46: BD [place] 00 Posiflush) Sodium 2017-03 No 1,000 mL, Memori a Chloride 2-13 Rate: 100 l 0.45% IV 23:46: ml/hr, [place] 1,000 mL 00 Infuse over: 10 hr, Route: IV, Dosing Weight 85 kg, Total Volume: 1,000, Start date: 02/14/18 17:46: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, Duration: 30 day, Stop date: 03/16/18 17:45: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, 2.1, m2 Dulcolax 2017-03 No Notes: Memoria Laxative 2-13 (Same As: l 23:46: Dulcolax, [place] 00 Correctol) (Do Not Crush) "Do Not Crush" Ondansetron 2017-03 No Notes: Kuldeep teto 2-13 (Same as: l 23:46: Zofran [place] 00 ODT) Diphenhydra 2017-03 No Notes: Kuldeep teto mine 2-13 (Same as: l 23:46: Benadryl) [place] 00 Acetaminoph 2017-03 No Notes: Max Memoria en 2-13 acetaminop l 23:46: hen = 4000 [place] 00 mg/day (4 gm/day). (Same as: Tylenol) Acetaminoph 2017-03 No Notes: Kuldeep teto en 325 MG / 2-13 (Same as: l Hydrocodone 23:46: [place]cia nn Bitartrate 00 325/5) Do 5 [...] Total Volume: 1,000, Start date: 02/14/18 17:46: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, Duration: 30 day, Stop date: 03/16/18 17:45: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, 2.1, m2 Dulcolax 2017-03 No Notes: Memoria Laxative 2-13 (Same As: l 23:46: Dulcolax, [place] 00 Correctol) (Do Not Crush) "Do Not Crush" Ondansetron 2017-03 No Notes: Kuldeep teto 2-13 (Same as: l 23:46: Zofran [place] 00 ODT) Diphenhydra 2017-03 No Notes: Kuldeep teto mine 2-13 (Same as: l 23:46: Benadryl) [place] 00 Acetaminoph 2017-03 No Notes: Max Memoria en 2-13 acetaminop l 23:46: hen = 4000 [place] 00 mg/day (4 gm/day). (Same as: Tylenol) Acetaminoph 2017-03 No Notes: Kuldeep teto en 325 MG / 2-13 (Same as: l Hydrocodone 23:46: [place] nn Bitartrate 00 325/5) Do 5 MG Oral not exceed Tablet 4gm/day of acetaminop hen. Saline 2017-03 No Notes: Memoria Flush 0.9% 2-13 (Same as: l 23:46: BD [place] 00 Posiflush) Sodium 2017-03 No 1,000 mL, Memori a Chloride 2-13 Rate: 100 l 0.45% IV 23:46: ml/hr, [place] 1,000 mL 00 Infuse over: 10 hr, Route: IV, Dosing Weight 85 kg, Total Volume: 1,000, Start date: 02/14/18 17:46: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, Duration: 30 day, Stop date: 03/16/18 17:45: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, 2.1, m2 Dulcolax 2017-03 No Notes: Memoria Laxative 2-13 (Same As: l 23:46: Dulcolax, [place] 00 Correctol) (Do Not Crush) "Do Not Crush" Ondansetron 2017-03 No Notes: Kuldeep teto 2-13 (Same as: l 23:46: Zofran [place] 00 ODT) Diphenhydra 2017-03 No Notes: Kuldeep teto mine 2-13 (Same as: l 23:46: Benadryl) [place] 00 Acetaminoph 2017-03 No Notes: Max Memoria en 2-13 acetaminop l 23:46: hen = 4000 [place] 00 mg/day (4 gm/day). (Same as: Tylenol) Acetaminoph 2017-03 No Notes: Kuldeep teto en 325 MG / 2-13 (Same as: l Hydrocodone 23:46: [place] nn Bitartrate 00 325/5) Do 5 [...] Total Volume: 1,000, Start date: 02/14/18 17:46: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, Duration: 30 day, Stop date: 03/16/18 17:45: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, 2.1, m2 Dulcolax 2017-03 No Notes: Memoria Laxative 2-13 (Same As: l 23:46: Dulcolax, [place] 00 Correctol) (Do Not Crush) "Do Not Crush" Ondansetron 2017-03 No Notes: Kuldeep teto 2-13 (Same as: l 23:46: Zofran [place] 00 ODT) Diphenhydra 2017-03 No Notes: Kuldeep teto mine 2-13 (Same as: l 23:46: Benadryl) [place] 00 Acetaminoph 2017-03 No Notes: Max Memoria en 2-13 acetaminop l 23:46: hen = 4000 [place] 00 mg/day (4 gm/day). (Same as: Tylenol) Acetaminoph 2017-03 No Notes: Kuldeep teto en 325 MG / 2-13 (Same as: l Hydrocodone 23:46: [place] nn Bitartrate 00 325/5) Do 5 MG Oral not exceed Tablet 4gm/day of acetaminop hen. sugammadex 2017-03 No Route: IV, M emoria (ANES) 2-13 Drug form: l 22:11: SOLN, [place] 00 ONCE, Stop date: 02/14/18 16:11: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 sugammadex 2017-03 No Route: IV, M emoria (ANES) 2-13 Drug form: l 22:11: SOLN, [place] 00 ONCE, Stop date: 02/14/18 16:11: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 sugammadex 2017-03 No Route: IV, M emoria (ANES) 2-13 Drug form: l 22:11: SOLN, [place] 00 ONCE, Stop date: 02/14/18 16:11: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 sugammadex 2017-03 No Route: IV, M emoria (ANES) 2-13 Drug form: l 22:11: SOLN, [place] 00 ONCE, Stop date: 02/14/18 16:11: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 sugammadex 2017-03 No Route: IV, M emoria (ANES) 2-13 Drug form: l 22:11: SOLN, [place] 00 ONCE, Stop date: 02/14/18 16:11: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 sugammadex 2017-03 No Route: IV, M emoria (ANES) 2-13 Drug form: l 22:11: SOLN, [place] 00 ONCE, Stop date: 02/14/18 16:11: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 ePHEDrine 2017-03 No Route: IV, Me moria (ANES) 2-13 Drug form: l 22:07: INJ, ONCE, [place] 00 Stop date: 02/14/18 16:07: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 ePHEDrine 2017-03 No Route: IV, Me moria (ANES) 2-13 Drug form: l 22:07: INJ, ONCE, Stop date: 02/14/18 16:07: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 ePHEDrine 2018 No Route: IV, Me moria (ANES) 2-13 Drug form: l 22:07: INJ, ONCE, Stop date: 02/14/18 16:07: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 ePHEDrine 2018 No Route: IV, Me moria (ANES) 2-13 Drug form: l 22:07: INJ, ONCE, Stop date: 02/14/18 16:07: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 ePHEDrine 2018 No Route: IV, Me moria (ANES) 2-13 Drug form: l 22:07: INJ, ONCE, Stop date: 02/14/18 16:07: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 ePHEDrine 2017-03 No Route: IV, Me moria (ANES) 2-13 Drug form: l 22:07: INJ, ONCE, Stop date: 02/14/18 16:07: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 succinylcho 2017-03 No Route: IV, Memoria line (ANES) 2-13 Drug form: l 22:02: INJ, ONCE, Stop date: 02/14/18 16:02: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 phenylephri 2017-03 No Route: IV, Memoria ne (ANES) 2-13 Drug form: l 22:02: INJ, ONCE, Stop date: 02/14/18 16:02: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 dexamethaso 2017- No Route: IV, Memoria ne (ANES) 2-13 Drug form: l 22:02: INJ, ONCE, Stop date: 02/14/18 16:02: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 ondansetron 2017-03 No Route: IV, Memoria (ANES) 2-13 Drug form: l 22:02: INJ, ONCE, Stop date: 02/14/18 16:02: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 succinylcho 2017-03 No Route: IV, Memoria line (ANES) 2-13 Drug form: l 22:02: INJ, ONCE, Stop date: 02/14/18 16:02: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 phenylephri 2017-03 No Route: IV, Memoria ne (ANES) 2-13 Drug form: l 22:02: INJ, ONCE, Stop date: 02/14/18 16:02: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 dexamethaso 2018- No Route: IV, Memoria ne (ANES) 2-13 Drug form: l 22:02: INJ, ONCE, Stop date: 02/14/18 16:02: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 ondansetron 2018 No Route: IV, Memoria (ANES) 2-13 Drug form: l 22:02: INJ, ONCE, Stop date: 02/14/18 16:02: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 succinylcho 2018 No Route: IV, Memoria line (ANES) 2-13 Drug form: l 22:02: INJ, ONCE, Stop date: 02/14/18 16:02: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 phenylephri 2018 No Route: IV, Memoria ne (ANES) 2-13 Drug form: l 22:02: INJ, ONCE, Stop date: 02/14/18 16:02: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 dexamethaso 2018- No Route: IV, Memoria ne (ANES) 2-13 Drug form: l 22:02: INJ, ONCE, Stop date: 02/14/18 16:02: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 ondansetron 2017-03 No Route: IV, Memoria (ANES) 2-13 Drug form: l 22:02: INJ, ONCE, Stop date: 02/14/18 16:02: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 succinylcho 2018 No Route: IV, Memoria line (ANES) 2-13 Drug form: l 22:02: INJ, ONCE, Stop date: 02/14/18 16:02: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 phenylephri 2017-03 No Route: IV, Memoria ne (ANES) 2-13 Drug form: l 22:02: INJ, ONCE, Stop date: 02/14/18 16:02: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 dexamethaso 2018- No Route: IV, Memoria ne (ANES) 2-13 Drug form: l 22:02: INJ, ONCE, Stop date: 02/14/18 16:02: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 ondansetron 2018 No Route: IV, Memoria (ANES) 2-13 Drug form: l 22:02: INJ, ONCE, Stop date: 02/14/18 16:02: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 succinylcho 2017-03 No Route: IV, Memoria line (ANES) 2-13 Drug form: l 22:02: INJ, ONCE, Stop date: 02/14/18 16:02: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 phenylephri 2018 No Route: IV, Memoria ne (ANES) 2-13 Drug form: l 22:02: INJ, ONCE, Stop date: 02/14/18 16:02: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 dexamethaso 2018 No Route: IV, Memoria ne (ANES) 2-13 Drug form: l 22:02: INJ, ONCE, Stop date: 02/14/18 16:02: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 ondansetron 2017-03 No Route: IV, Memoria (ANES) 2-13 Drug form: l 22:02: INJ, ONCE, Stop date: 02/14/18 16:02: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 succinylcho 2017-03 No Route: IV, Memoria line (ANES) 2-13 Drug form: l 22:02: INJ, ONCE, Stop date: 02/14/18 16:02: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 phenylephri 2017-03 No Route: IV, Memoria ne (ANES) 2-13 Drug form: l 22:02: INJ, ONCE, Stop date: 02/14/18 16:02: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 dexamethaso 2017-03 No Route: IV, Memoria ne (ANES) 2-13 Drug form: l 22:02: INJ, ONCE, Stop date: 02/14/18 16:02: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 ondansetron 2017-03 No Route: IV, Memoria (ANES) 2-13 Drug form: l 22:02: INJ, ONCE, Stop date: 02/14/18 16:02: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 fentaNYL 2017-03 No Route: IV, Mem oria (ANES) 2-13 Drug form: l 21:57: INJ, ONCE, Stop date: 02/14/18 15:57: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 lidocaine 2017-03 No Route: IV, Me moria (ANES) 2-13 Drug form: l 21:57: INJ, ONCE, [place] 00 Stop date: 02/14/18 15:57: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 propofol 2017-03 No Route: IV, Mem oria (ANES) 2-13 Drug form: l 21:57: INJ, ONCE, Stop date: 02/14/18 15:57: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 rocuronium 2017-03 No Route: IV, M emoria (ANES) 2-13 Drug form: l 21:57: INJ, ONCE, [place] 00 Stop date: 02/14/18 15:57: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 midazolam 2017-03 No Route: IV, Me moria (ANES) 2-13 Drug form: l 21:57: SOLN, [place] 00 ONCE, Stop date: 02/14/18 15:57: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 fentaNYL 2017-03 No Route: IV, Mem oria (ANES) 2-13 Drug form: l 21:57: INJ, ONCE, Stop date: 02/14/18 15:57: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 lidocaine 2017-03 No Route: IV, Me moria (ANES) 2-13 Drug form: l 21:57: INJ, ONCE, Stop date: 02/14/18 15:57: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 propofol 2017-03 No Route: IV, Mem oria (ANES) 2-13 Drug form: l 21:57: INJ, ONCE, Stop date: 02/14/18 15:57: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 rocuronium 2017-03 No Route: IV, M emoria (ANES) 2-13 Drug form: l 21:57: INJ, ONCE, [place] 00 Stop date: 02/14/18 15:57: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 midazolam 2017-03 No Route: IV, Me moria (ANES) 2-13 Drug form: l 21:57: SOLN, [place] 00 ONCE, Stop date: 02/14/18 15:57: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 fentaNYL 2017-03 No Route: IV, Mem oria (ANES) 2-13 Drug form: l 21:57: INJ, ONCE, Stop date: 02/14/18 15:57: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 lidocaine 2017-03 No Route: IV, Me moria (ANES) 2-13 Drug form: l 21:57: INJ, ONCE, [place] 00 Stop date: 02/14/18 15:57: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 propofol 2018- No Route: IV, Mem oria (ANES) 2-13 Drug form: l 21:57: INJ, ONCE, [place] 00 Stop date: 02/14/18 15:57: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 rocuronium 2018 No Route: IV, M emoria (ANES) 2-13 Drug form: l 21:57: INJ, ONCE, Stop date: 02/14/18 15:57: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 midazolam 2017-03 No Route: IV, Me moria (ANES) 2-13 Drug form: l 21:57: SOLN, [place] ONCE, Stop date: 02/14/18 15:57: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 fentaNYL 2017-03 No Route: IV, Mem oria (ANES) 2-13 Drug form: l 21:57: INJ, ONCE, Stop date: 02/14/18 15:57: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 lidocaine 2017-03 No Route: IV, Me moria (ANES) 2-13 Drug form: l 21:57: INJ, ONCE, Stop date: 02/14/18 15:57: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 propofol 2017-03 No Route: IV, Mem oria (ANES) 2-13 Drug form: l 21:57: INJ, ONCE, Stop date: 02/14/18 15:57: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 rocuronium 2017-03 No Route: IV, M emoria (ANES) 2-13 Drug form: l 21:57: INJ, ONCE, Stop date: 02/14/18 15:57: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 midazolam 2017-03 No Route: IV, Me moria (ANES) 2-13 Drug form: l 21:57: SOLN, [place] 00 ONCE, Stop date: 02/14/18 15:57: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 fentaNYL 2017-03 No Route: IV, Mem oria (ANES) 2-13 Drug form: l 21:57: INJ, ONCE, Stop date: 02/14/18 15:57: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 lidocaine 2017-03 No Route: IV, Me moria (ANES) 2-13 Drug form: l 21:57: INJ, ONCE, [place] 00 Stop date: 02/14/18 15:57: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 propofol 2017-03 No Route: IV, Mem oria (ANES) 2-13 Drug form: l 21:57: INJ, ONCE, Stop date: 02/14/18 15:57: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 rocuronium 2017-03 No Route: IV, M emoria (ANES) 2-13 Drug form: l 21:57: INJ, ONCE, Stop date: 02/14/18 15:57: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 midazolam 2017-03 No Route: IV, Me moria (ANES) 2-13 Drug form: l 21:57: SOLN, [place] 00 ONCE, Stop date: 02/14/18 15:57: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 fentaNYL 2017-03 No Route: IV, Mem oria (ANES) 2-13 Drug form: l 21:57: INJ, ONCE, Stop date: 02/14/18 15:57: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 lidocaine 2017-03 No Route: IV, Me moria (ANES) 2-13 Drug form: l 21:57: INJ, ONCE, Stop date: 02/14/18 15:57: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 propofol 2017-03 No Route: IV, Mem oria (ANES) 2-13 Drug form: l 21:57: INJ, ONCE, Stop date: 02/14/18 15:57: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 rocuronium 2017-03 No Route: IV, M emoria (ANES) 2-13 Drug form: l 21:57: INJ, ONCE, Stop date: 02/14/18 15:57: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 midazolam 2017-03 No Route: IV, Me moria (ANES) 2-13 Drug form: l 21:57: SOLN, 00 ONCE, Stop date: 02/14/18 15:57: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 Promethazin 2017-03 No Notes: Do M emoria [...] days Memor ia 2-13 l 21:47: MEDICATION [place] 00 WASTE Product Size: 30 mg Product Wasted: ___ mg Labetalol 2017-03 No Notes: Memori a 2-13 (Same as: l 21:47: Normodyne, [place] 00 Trandate) Push over 2 minutes Give bolus over 2-3 minutes. Sodium 2017-03 No 500 mL, Memoria Chloride 2-13 1500 l 0.9% 21:47: ml/hr, [place] (Bolus) IV 00 Infuse Over: 20 minutes, Route: IV, 500, Drug form: INJ, ONCE, Dosing Weight 85 kg, Start date: 02/14/18 15:47: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, Stop date: 02/14/18 15:47: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 Naloxone 2017-03 No Notes: Memoria 2-13 Same [...] ia 2-13 (Same as: l 21:47: Lopressor) [place] 00 Push over 2 minutes Ketorolac 2017-03 [...] Weight 85 kg, Start date: 02/14/18 15:47: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, Stop date: 02/14/18 15:47: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 Naloxone 2017-03 No Notes: Memoria 2-13 Same as l 21:47: Narcan [place] 00 Flumazenil 2017-03 No Notes: Memor ia 2-13 (Same as: l 21:47: Romazicon) [place] 00 Morphine 2017-03 No Notes: Memoria 2-13 (Same l 21:47: as:MORPhin [place] 00 e Sulfate) Hydromorpho 2017-03 No Notes: Kuldeep teto ne 2-13 Same as l 21:47: Dilaudid [place] 00 Promethazin 2017-03 No Notes: Do M emoria e 2-13 not give l 21:47: IV push. [place] 00 (Same as: Phenergan) Ondansetron 2017-03 No Notes: Kuldeep teto 2-13 (Same as: l 21:47: Zofran) [place] MEDICATION WASTE Product Size: 4 mg Product Wasted: ___ mg Metoprolol 2017-03 No Notes: Memor ia 2-13 (Same as: l 21:47: Lopressor) [place] Push over 2 minutes Ketorolac 2017-03 No 4 days Memor ia 2-13 l 21:47: MEDICATION [place] WASTE Product Size: 30 mg Product Wasted: ___ mg Labetalol 2017-03 No Notes: Memori a 2-13 (Same as: l 21:47: Normodyne, [place] 00 Trandate) Push over 2 minutes Give bolus over 2-3 minutes. Sodium 2017-03 No 500 mL, Memoria Chloride 2-13 1500 l 0.9% 21:47: ml/hr, [place] (Bolus) IV 00 Infuse Over: 20 minutes, Route: IV, 500, Drug form: INJ, ONCE, Dosing Weight 85 kg, Start date: 02/14/18 15:47: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, Stop date: 02/14/18 15:47: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 Naloxone 2017-03 No Notes: Memoria 2-13 Same as l 21:47: Narcan [place] 00 Flumazenil 2017-03 No Notes: Memor ia 2-13 (Same as: l 21:47: Romazicon) [place] Morphine 2017-03 No Notes: Memoria 2-13 (Same l 21:47: as:MORPhin [place] 00 e Sulfate) Hydromorpho 2017-03 No Notes: Kuldeep teto ne 2-13 Same as l 21:47: Dilaudid [place] 00 Promethazin 2017-03 No Notes: Do M [...] days Memor ia 2-13 l 21:47: MEDICATION [place] 00 WASTE Product Size: 30 mg Product Wasted: ___ mg Labetalol 2017-03 No Notes: Memori a 2-13 (Same as: l 21:47: Normodyne, [place] 00 Trandate) Push over 2 minutes Give bolus over 2-3 minutes. Sodium 2018- No 500 mL, Memoria Chloride 2-13 1500 l 0.9% 21:47: ml/hr, [place] (Bolus) IV 00 Infuse Over: 20 minutes, Route: IV, 500, Drug form: INJ, ONCE, Dosing Weight 85 kg, Start date: 02/14/18 15:47: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, Stop date: 02/14/18 15:47: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 Naloxone 2017-03 No Notes: Memoria 2-13 Same as l 21:47: Narcan [place] Flumazenil 2017-03 No Notes: Memor ia 2-13 (Same as: l 21:47: Romazicon) [place] Morphine 2017-03 No Notes: Memoria 2-13 (Same [...] ia 2-13 (Same as: l 21:47: Lopressor) [place] Push over 2 minutes Ketorolac 2017-03 No 4 days Memor ia 2-13 l 21:47: MEDICATION [place] 00 WASTE Product Size: 30 mg Product Wasted: ___ mg Labetalol 2017-03 No Notes: Memori a 2-13 (Same as: l 21:47: Normodyne, [place] 00 Trandate) Push over 2 minutes Give bolus over 2-3 minutes. Sodium 2017-03 No 500 mL, Memoria Chloride 2-13 1500 l 0.9% 21:47: ml/hr, [place] (Bolus) IV 00 Infuse Over: 20 minutes, Route: IV, 500, Drug form: INJ, ONCE, Dosing Weight 85 kg, Start date: 02/14/18 15:47: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, Stop date: 02/14/18 15:47: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 Naloxone 2017-03 No Notes: Memoria 2-13 Same as l 21:47: Narcan [place] Flumazenil 2017-03 No Notes: Memor ia 2-13 (Same as: l 21:47: Romazicon) [place] Morphine 2017-03 No Notes: Memoria 2-13 (Same l 21:47: as:MORPhin [place] 00 e Sulfate) Hydromorpho 2017-03 No Notes: Kuldeep teto ne 2-13 Same as l 21:47: Dilaudid [place] 00 Promethazin 2017-03 No Notes: Do M emoria e 2-13 not give l 21:47: IV push. [place] 00 (Same as: Phenergan) Ondansetron 2017-03 No Notes: Kuldeep teto 2-13 (Same as: l 21:47: Zofran) [place] 00 MEDICATION WASTE Product Size: 4 mg Product Wasted: ___ mg Metoprolol 2017-03 No Notes: Memor ia 2-13 (Same as: l 21:47: Lopressor) [place] 00 Push over 2 minutes Ketorolac 2017-03 No 4 days Memor ia 2-13 l 21:47: MEDICATION [place] 00 WASTE Product Size: 30 mg Product Wasted: ___ mg Labetalol 2017-03 No Notes: Memori a 2-13 (Same as: l 21:47: Normodyne, [place] 00 Trandate) Push over 2 minutes Give bolus over 2-3 minutes. Sodium 2017-03 No 500 mL, Memoria Chloride 2-13 1500 l 0.9% 21:47: ml/hr, [place] (Bolus) IV 00 Infuse Over: 20 minutes, Route: IV, 500, Drug form: INJ, ONCE, Dosing Weight 85 kg, Start date: 02/14/18 15:47: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, Stop date: 02/14/18 15:47: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 Naloxone 2017-03 No Notes: Memoria 2-13 Same as l 21:47: Narcan [place] 00 Flumazenil 2017-03 No Notes: Memor ia 2-13 (Same as: l 21:47: Romazicon) [place] 00 Morphine 2017-03 No Notes: Memoria 2-13 (Same l 21:47: as:MORPhin [place] 00 e Sulfate) Hydromorpho 2017-03 No Notes: Kuldeep teto ne 2-13 Same as l 21:47: Dilaudid [place] vancomycin 2017-03 No Route: IV, M emoria (ANES) 1000 2-13 Drug form: l mg 21:45: INJ, Start [place] 00 date: 02/14/18 15:45: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, Stop date: 02/14/18 16:45: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 vancomycin 2017-03 No Route: IV, Bradley emoria (ANES) 1000 04-17 Drug form: l mg 21:45: INJ, Start date: 02/14/18 15:45: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, Stop date: 02/14/18 16:45: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 vancomycin 2017-03 No Route: IV, Bradley emoria (ANES) 1000 04-17 Drug form: l mg 21:45: INJ, Start date: 02/14/18 15:45: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, Stop date: 02/14/18 16:45: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 vancomycin 2017-03 No Route: IV, Bradley emoria (ANES) 1000 04-17 Drug form: l mg 21:45: INJ, Start date: 02/14/18 15:45: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, Stop date: 02/14/18 16:45: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 vancomycin 2017-03 No Route: IV, Bradley emoria (ANES) 1000 04-17 Drug form: l mg 21:45: INJ, Start date: 02/14/18 15:45: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, Stop date: 02/14/18 16:45: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 vancomycin 2017-03 No Route: IV, Bradley emoria (ANES) 1000 04-17 Drug form: l mg 21:45: INJ, Start date: 02/14/18 15:45: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, Stop date: 02/14/18 16:45: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 Sodium 2017-03 No Route: IV, Memor ia Chloride 2-13 Total l 0.9% IV 21:08: Volume: Cody (ANES) 1000 00 1,000, mL Start date: 02/14/18 15:08: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, Stop date: 02/14/18 16:08: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 Sodium 2017-03 No Route: IV, Memor ia Chloride 2-13 Total l 0.9% IV 21:08: Volume: Seymour (ANES) 1000 00 1,000, mL Start date: 02/14/18 15:08: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, Stop 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: 02/14/18 16:08: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 Sodium 2017-03 No Route: IV, Memor ia Chloride 2-13 Total l 0.9% IV 21:08: Volume: Cody (ANES) 1000 00 1,000, mL Start date: 02/14/18 15:08: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, Stop date: 02/14/18 16:08: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 Sodium 2017-03 No Route: IV, Memor ia Chloride 2-13 Total l 0.9% IV 21:08: Volume: Seymour (ANES) 1000 00 1,000, mL Start date: 02/14/18 15:08: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, Stop date: 02/14/18 16:08: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 Sodium 2017-03 No Route: IV, Memor ia Chloride 2-13 Total l 0.9% IV 21:08: Volume: Seymour (ANES) 1000 00 1,000, mL Start date: 02/14/18 15:08:00 SHELL FREEZING MACHINE OPERATOR, Stop date: 02/14/18 16:08:00 SHELL FREEZING MACHINE OPERATOR Sodium 2017-03 No Route: IV, Memor ia Chloride 2-13 Total l 0.9% IV 21:08: Volume: Cody (ANES) 1000 00 1,000, mL Start date: 02/14/18 15:08:00 SHELL FREEZING MACHINE OPERATOR, Stop date: 02/14/18 16:08:00 SHELL FREEZING MACHINE OPERATOR Ativan 2017-03 No Notes: Memoria 2-13 (Same as: l 18:24: Ativan) Seymour Ativan 2017-03 No Notes: Memoria 2-13 (Same as: l 18:24: Ativan) Cody Ativan 2017-03 No Notes: Memoria 2-13 (Same as: l 18:24: Ativan) Semyour Ativan 2017-03 No Notes: Memoria 2-13 (Same as: l 18:24: Ativan) Cody Ativan 2017-03 No Notes: Memoria 2-13 (Same as: l 18:24: Ativan) Cody Ativan 2017-03 No Notes: Memoria 2-13 (Same as: l 18:24: Ativan) Cody Thiamine 2017-03 No Notes: Memoria 2-13 (Same As: l 16:00: Vitamin Seymour 00 B1) multivitami 2017-03 No Notes: Kuldeep teto n with 2-13 (Same l minerals 16:00: as:Thera-M Her fernandes 00 , Theragran- M) WASTE: F/P - Black; E - Municipal Trash Bin Give with food. Thiamine 2017-03 No Notes: Memoria 2-13 (Same As: l 16:00: Vitamin Cody 00 B1) multivitami 2017-03 No Notes: Kuldeep [...] Memoria 2-13 (Same As: l 16:00: Vitamin Cody 00 B1) multivitami 2017-03 No Notes: Kuldeep teto n with 2-13 (Same l minerals 16:00: as:Thera-Bradley Her fernandes 00 , Theragran- ) WASTE: F/P - Black; E - Municipal [...] Memoria 2-13 (Same As: l 16:00: Vitamin Cody 00 B1) multivitami 2017-03 No Notes: Kuldeep teto n with 2-13 (Same l minerals 16:00: as:Thera-M Her fernandes 00 , Theragran- M) WASTE: F/P - Black; E - [employer] Give with food. 24 HR 2017-03 No Notes: [facility] Metoprolol 2-13 (Same as: l Tartrate 25 15:00: Toprol XL) Cody MG Extended 00 Do Not Release Crush Tablet [Toprol] duloxetine 2017-03 No Notes: Memor ia 2-13 (Same as: l 15:00: Cymbalta) [place] 00 (Do Not Crush) Plavix 2017-03 No Notes: [facility]oria 2-13 (Same As: l 15:00: Plavix) [place] 00 24 HR 2017-03 No Notes: [facility] Metoprolol 2-13 (Same as: l Tartrate 25 15:00: Toprol XL) [place] MG Extended 00 Do Not Release Crush Tablet [Toprol] duloxetine 2017-03 No Notes: Memor ia 2-13 (Same as: l 15:00: Cymbalta) [place] 00 (Do Not Crush) Plavix 2017-03 No Notes: [facility] 2-13 (Same As: l 15:00: Plavix) [place] 00 24 HR 2017-03 No Notes: [facility] Metoprolol 2-13 (Same as: l Tartrate 25 15:00: Toprol XL) [place] MG Extended 00 Do Not Release Crush Tablet [Toprol] duloxetine 2017-03 No Notes: Memor ia 2-13 (Same as: l 15:00: Cymbalta) [place] 00 (Do Not Crush) Plavix 2017-03 No Notes: [facility]oria 2-13 (Same As: l 15:00: Plavix) [place] 00 24 HR 2017-03 No Notes: [facility] Metoprolol 2-13 (Same as: l Tartrate 25 15:00: Toprol XL) [place] MG Extended 00 Do Not Release Crush Tablet [Toprol] duloxetine 2017-03 No Notes: Memor ia 2-13 (Same as: l 15:00: Cymbalta) [place] 00 (Do Not Crush) Plavix 2017-03 No Notes: [facility] 2-13 (Same As: l 15:00: Plavix) [place] 00 24 HR 2017-03 No Notes: [facility] Metoprolol 2-13 (Same as: l Tartrate 25 15:00: Toprol XL) [place] MG Extended 00 Do Not Release Crush Tablet [Toprol] duloxetine 2017-03 No Notes: Memor ia 2-13 (Same as: l 15:00: Cymbalta) [place] 00 (Do Not Crush) Plavix 2017-03 No Notes: [facility] 2-13 (Same As: l 15:00: Plavix) [place] 00 24 HR 2017-03 No Notes: [facility] Metoprolol 2-13 (Same as: l Tartrate 25 15:00: Toprol XL) [place] MG Extended 00 Do Not Release Crush Tablet [Toprol] duloxetine 2017-03 No Notes: Memor ia 2-13 (Same as: l 15:00: Cymbalta) [place] 00 (Do Not Crush) Plavix 2017-03 No Notes: [facility] 2-13 (Same As: l 15:00: Plavix) [place] 00 atorvastati 2017-03 No Notes: Kuldeep teto n 2-13 (Same as: l 03:00: Lipitor) [place] 00 Trazodone 2017-03 No Notes: Memori a Hydrochlori 2-13 (Same As: l de 50 MG 03:00: Desyrel) Marcia nn Oral Tablet 00 atorvastati 2017-03 No Notes: Kuldeep teto n 2-13 (Same as: l 03:00: Lipitor) [place] Trazodone 2017-03 No Notes: [facility]ori a Hydrochlori 2-13 (Same As: l de 50 MG 03:00: Desyrel) Marcia nn Oral Tablet 00 atorvastati 2017-03 No Notes: Kuldeep teto n 2-13 (Same as: l 03:00: Lipitor) [place] Trazodone 2017-03 No Notes: [facility]ori a Hydrochlori 2-13 (Same As: l de 50 MG 03:00: Desyrel) Marcia nn Oral Tablet 00 atorvastati 2017-03 No Notes: Kuldeep teto n 2-13 (Same as: l 03:00: Lipitor) [place] 00 Trazodone 2017-03 No Notes: Memori a [...] n 2-13 (Same as: l 03:00: Lipitor) [place] 00 Trazodone 2017-03 No Notes: [facility]ori a Hydrochlori 2-13 (Same As: l de 50 MG 03:00: Desyrel) [place]cia nn Oral Tablet 00 Sodium 2017-03 No 250 mL, [facility] Chloride 2-13 Rate: To l 0.9% 01:24: prime line [place] (titrate) 00 and flush 250 mL remaining blood products., Dosing Weight 85, kg, Route: IV, Total Volume: 250, Priority: Routine, Start Date: 02/13/18 19:24:00 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, Duration: 30 day, Stop date: 03/15/18 19:23:00 SHELL FREEZING MACHINE OPERATOR, Replace Every: 24 hr Sodium 2017-03 No 250 mL, [facility] Chloride 2-13 Rate: To l 0.9% 01:24: prime line [place] (titrate) 00 and flush 250 mL remaining blood products., Dosing Weight 85, kg, Route: IV, Total Volume: 250, Priority: Routine, Start Date: 02/13/18 19:24:00 SHELL FREEZING MACHINE OPERATOR, Duration: 30 day, Stop date: 03/15/18 19:23:00 SHELL FREEZING MACHINE OPERATOR, Replace Every: 24 hr Sodium 2017-03 No 250 mL, [facility] Chloride 2-13 Rate: To l 0.9% 01:24: prime line [place] (titrate) 00 and flush 250 mL remaining blood products., Dosing Weight 85, kg, Route: IV, Total Volume: 250, Priority: Routine, Start Date: 02/13/18 19:24:00 SHELL FREEZING MACHINE OPERATOR, Duration: 30 day, Stop date: 03/15/18 19:23:00 SHELL FREEZING MACHINE OPERATOR, Replace Every: 24 hr Sodium 2017-03 No 250 mL, [facility] Chloride 2-13 Rate: To l 0.9% 01:24: prime line [place] (titrate) 00 and flush 250 mL remaining blood products., Dosing Weight 85, kg, Route: IV, Total Volume: 250, Priority: Routine, Start Date: 02/13/18 19:24:00 SHELL FREEZING MACHINE OPERATOR, Duration: 30 day, Stop date: 03/15/18 19:23:00 SHELL FREEZING MACHINE OPERATOR, Replace Every: 24 hr Sodium 2017-03 No 250 mL, [facility] Chloride 2-13 Rate: To l 0.9% 01:24: prime line [place] (titrate) 00 and flush 250 mL remaining blood products., Dosing Weight 85, kg, Route: IV, Total Volume: 250, Priority: Routine, Start Date: 02/13/18 19:24:00 SHELL FREEZING MACHINE OPERATOR, Duration: 30 day, Stop date: 03/15/18 19:23:00 SHELL FREEZING MACHINE OPERATOR, Replace Every: 24 hr Sodium 2018-1 No 250 mL, [facility] Chloride 2-13 Rate: To l 0.9% 01:24: prime line [place] (titrate) 00 and flush 250 mL remaining blood products., Dosing Weight 85, kg, Route: IV, Total Volume: 250, Priority: Routine, Start Date: 02/13/18 19:24:00 SHELL FREEZING MACHINE OPERATOR, Duration: 30 day, Stop date: 03/15/18 19:23:00 SHELL FREEZING MACHINE OPERATOR, Replace Every: 24 hr Vancomycin 2018- No 2000 mg: Me moria 2-13 infuse l 00:00: over 2.5 [place] 00 hours For adult patients only: Round to nearest 250 mg per Medical Staff approval MEDICATION WASTE Product Size: 1000 mg Product Wasted: ___ mg Vancomycin 2017- No 2000 mg: Me moria 2-13 infuse l 00:00: over 2.5 [place] 00 hours For adult patients only: Round to nearest 250 mg per Medical Staff approval MEDICATION WASTE Product Size: 1000 mg Product Wasted: ___ mg Vancomycin 2018- No 2000 mg: Me moria 2-13 infuse l 00:00: over 2.5 [place] 00 hours For adult patients only: Round [...] 1000 mg Product Wasted: ___ mg Vancomycin 2018-1 No 2001 mg: Me moria 2-13 infuse l 00:00: over 2.5 [place] 00 hours For adult patients only: Round to nearest 250 mg per Medical Staff approval MEDICATION WASTE Product Size: 1000 mg Product Wasted: ___ mg Vancomycin 2018- No 2000 mg: Me moria 2-13 infuse l 00:00: over 2.5 [place] 00 hours For adult patients only: Round [...] s with feeding tube less than 14 [place] (Dobhoff, J-tube etc) and pediatric and patients. [...] s with feeding tube less than 14 [place] (Dobhoff, J-tube etc) and pediatric and patients. [...] s with feeding tube less than 14 [place] (Dobhoff, J-tube etc) and pediatric and patients. [...] s with feeding tube less than 14 [place] (Dobhoff, J-tube etc) and pediatric and patients. [...] s with feeding tube less than 14 [place] (Dobhoff, J-tube etc) and pediatric and patients. [...] s with feeding tube less than 14 [place] (Dobhoff, J-tube etc) and pediatric and patients. [...] a 2-12 (Same As: l 23:00: BuSpar) NS 1,000 mL 2017-03 No 1,000 mL, M emoria 2-12 Rate: 75 l 22:01: ml/hr, Infuse over: 13.3 hr, Route: IV, Dosing Weight 85 kg, Total Volume: 1,000, Start date: 02/13/18 16:01:00 SHELL FREEZING MACHINE OPERATOR, Duration: 30 day, Stop date: 03/15/18 16:00:00 SHELL FREEZING MACHINE OPERATOR, 2.1, m2 NS 1,000 mL 2017- No 1,000 mL, M emoria 2-12 Rate: 75 l 22:01: ml/hr, [place] 00 Infuse over: 13.3 hr, Route: IV, Dosing Weight 85 kg, Total Volume: 1,000, Start date: 02/13/18 16:01:00 SHELL FREEZING MACHINE OPERATOR, Duration: 30 day, Stop date: 03/15/18 16:00:00 SHELL FREEZING MACHINE OPERATOR, 2.1, m2 NS 1,000 mL 2017-03 No 1,000 mL, M emoria 2-12 Rate: 75 l 22:01: ml/hr, [place] 00 Infuse over: 13.3 hr, Route: IV, Dosing Weight 85 kg, Total Volume: 1,000, Start date: 02/13/18 16:01:00 SHELL FREEZING MACHINE OPERATOR, Duration: 30 day, Stop date: 03/15/18 16:00:00 SHELL FREEZING MACHINE OPERATOR, 2.1, m2 NS 1,000 mL 2017-03 No 1,000 mL, M emoria 2-12 Rate: 75 l 22:01: ml/hr, [place] 00 Infuse over: 13.3 hr, Route: IV, Dosing Weight 85 kg, Total Volume: 1,000, Start date: 02/13/18 16:01:00 SHELL FREEZING MACHINE OPERATOR, Duration: 30 day, Stop date: 03/15/18 16:00:00 SHELL FREEZING MACHINE OPERATOR, 2.1, m2 NS 1,000 mL 2017-03 No 1,000 mL, M emoria 2-12 Rate: 75 l 22:01: ml/hr, [place] 00 Infuse over: 13.3 hr, Route: IV, Dosing Weight 85 kg, Total Volume: 1,000, Start date: 02/13/18 16:01:00 SHELL FREEZING MACHINE OPERATOR, Duration: 30 day, Stop date: 03/15/18 16:00:00 SHELL FREEZING MACHINE OPERATOR, 2.1, m2 NS 1,000 mL 2017-03 No 1,000 mL, M emoria 2-12 Rate: 75 l 22:01: ml/hr, [place] 00 Infuse over: 13.3 hr, Route: IV, Dosing Weight 85 kg, Total Volume: 1,000, Start date: 02/13/18 16:01:00 SHELL FREEZING MACHINE OPERATOR, Duration: 30 day, Stop date: 03/15/18 16:00:00 SHELL FREEZING MACHINE OPERATOR, 2.1, m2 Rocephin + 2017-03 No Notes: [...] PO, l oral tablet 21:11: Bedtime, # [place] 00 30 tab, 0 Refill(s) busPIRone 2017-03 [...] tab, PO, l tablet 21:11: BID, 0 [place] 00 Refill(s) clopidogrel 2017-03 No 75 mg [...] PO, l oral tablet 21:11: Bedtime, # [place] 00 30 tab, 0 Refill(s) busPIRone 2017-03 No 10 mg = 1 Mem oria 10 mg oral 2-12 tab, PO, l tablet 21:11: BID, 0 [place] 00 Refill(s) Sulfamethox 2017-03 No 1 tab, PO, [facility]oria azole 800 2-12 BID, # 14 l MG / 21:11: tab, 0 [place] Trimethopri 00 Refill(s) m 160 MG Oral Tablet Tramadol 2017-03 No 50 mg, PO, Mem oria 2-12 Q4-6H, PRN l 21:11: Pain, # 20 [place] 00 tab, 0 Refill(s) midodrine 2017-03 No 2.5 mg = 1 Me moria 2.5 mg oral 2-12 tab, PO, l tablet 21:11: BID, 0 [place] 00 Refill(s) clopidogrel 2017-03 No 75 mg = 1 M emoria 75 MG Oral 2-12 tab, PO, l Tablet 21:11: Daily, # [place] [Plavix] 00 90 tab, 1 Refill(s) duloxetine [...] PO, l oral tablet 21:11: Bedtime, # [place] 00 30 tab, 0 Refill(s) busPIRone 2017-03 No 10 mg = 1 Mem oria 10 mg oral 2-12 tab, PO, l tablet 21:11: BID, 0 [place] 00 Refill(s) Sulfamethox 2017-03 No 1 tab, PO, [facility] azole 800 2-12 BID, # 14 l MG / 21:11: tab, 0 [place] Trimethopri 00 Refill(s) m 160 MG Oral Tablet Tramadol 2017-03 No 50 mg, PO, Mem oria 2-12 Q4-6H, PRN l 21:11: Pain, # 20 [place] 00 tab, 0 Refill(s) midodrine 2017-03 No 2.5 mg = 1 Me moria 2.5 mg oral 2-12 tab, PO, l tablet 21:11: BID, 0 [place] 00 Refill(s) clopidogrel 2017-03 No 75 mg = 1 M emoria 75 MG Oral 2-12 tab, PO, l Tablet 21:11: Daily, # [place] [Plavix] 00 90 tab, 1 Refill(s) duloxetine 2017-03 No 30 mg, PO, M emoria 2-12 Daily, 0 l 21:11: Refill(s) [place] 00 metoprolol 2017-03 No 25 mg = [...] emoria 2-12 Daily, 0 l 21:11: Refill(s) [place] 00 metoprolol 2017-03 No 25 mg = [...] 14 l MG / 21:11: tab, 0 [place] Trimethopri 00 Refill(s) m 160 MG Oral Tablet Tramadol 2017-03 No 50 mg, PO, Mem oria 2-12 Q4-6H, PRN l 21:11: Pain, # 20 [place] 00 tab, 0 Refill(s) Trazodone 2017-03 No 100 mg = 2 Me moria Hydrochlori 2-12 tab, PO, l de 50 MG 21:11: Bedtime, 0 Her fernandes Oral Tablet 00 Refill(s) midodrine 2017-03 No 2.5 mg = 1 Me moria 2.5 mg oral 2-12 tab, PO, l tablet 21:11: BID, 0 [place] 00 Refill(s) atorvastati 2017-03 No 80 mg = 1 M emoria n 80 mg 2-12 tab, PO, l oral tablet 21:11: Bedtime, # [place] 00 30 tab, 0 Refill(s) busPIRone 2017-03 No 10 mg = 1 Mem oria 10 mg oral 2-12 tab, PO, l tablet 21:11: BID, 0 [place] 00 Refill(s) Sulfamethox 2017-03 No 1 tab, PO, [facility] azole 800 2-12 BID, # 14 l MG / 21:11: tab, 0 [place] Trimethopri 00 Refill(s) m 160 MG Oral Tablet Tramadol 2017-03 No 50 mg, PO, Mem oria 2-12 Q4-6H, PRN l 21:11: Pain, # 20 [place] 00 tab, 0 Refill(s) midodrine 2017-03 No 2.5 mg = 1 Me moria 2.5 mg oral 2-12 tab, PO, l tablet 21:11: BID, 0 [place] 00 Refill(s) clopidogrel 2017-03 No 75 mg = 1 M emoria 75 MG Oral 2-12 tab, PO, l Tablet 21:11: Daily, # [place] [Plavix] 00 90 tab, 1 Refill(s) duloxetine 2017-03 No 30 mg, PO, M emoria 2-12 Daily, 0 l 21:11: Refill(s) [place] 00 metoprolol 2017-03 No 25 mg = [...] Q4-6H, PRN l 21:11: Pain, # 20 [place] 00 tab, 0 Refill(s) midodrine 2017-03 No 2.5 mg = 1 Me moria 2.5 mg oral 2-12 tab, PO, l tablet 21:11: BID, 0 [place] 00 Refill(s) Acetaminoph 2017-03 No Notes: Do M emoria en 2-12 not exceed l 20:53: 4 gm/day. [place] 00 (Same as: Tylenol) Ondansetron 2017-03 No Notes: Kuldeep teto -12 (Same as: l 20:53: Zofran) [place] 00 MEDICATION WASTE Product Size: 4 mg Product Wasted: ___ mg Glucagon 2017-03 No 1 mg, [facility]oria 2-12 Route: IM, l 20:53: Drug form: [place] PDR/INJ, PRN, kg, PRN Blood Glucose Results, Start date: 02/13/18 14:53:00 SHELL FREEZING MACHINE OPERATOR, Duration: 30 day, Stop date: 03/15/18 14:52:00 SHELL FREEZING MACHINE OPERATOR Dextrose 2017-03 No 25 gm, 50 Kuldeep teto 50% Syringe 2-12 mL, Route: l 20:53: IVP, Drug Form: INJ, kg, PRN, PRN Blood Glucose Results, Start date: 02/13/18 14:53:00 SHELL FREEZING MACHINE OPERATOR, Duration: 30 day, Stop date: 03/15/18 14:52:00 SHELL FREEZING MACHINE OPERATOR Acetaminoph 2017-03 No Notes: Do M emoria en 2-12 not exceed l 20:53: 4 gm/day. [place] 00 (Same as: Tylenol) Ondansetron 2017-03 No Notes: Kuldeep teto 2-12 (Same as: l 20:53: Zofran) [place] 00 MEDICATION WASTE Product Size: 4 mg Product Wasted: ___ mg Glucagon 2017-03 No 1 mg, Memoria 212 Route: IM, l 20:53: Drug form: [place] 00 PDR/INJ, PRN, kg, PRN Blood Glucose Results, Start date: 02/13/18 14:53:00 SHELL FREEZING MACHINE OPERATOR, Duration: 30 day, Stop date: 03/15/18 14:52:00 SHELL FREEZING MACHINE OPERATOR Dextrose 2017-03 No 25 gm, 50 Kuldeep teto 50% Syringe 2-12 mL, Route: l 20:53: IVP, Drug Form: INJ, kg, PRN, PRN Blood Glucose Results, Start date: 02/13/18 14:53:00 SHELL FREEZING MACHINE OPERATOR, Duration: 30 day, Stop date: 03/15/18 14:52:00 SHELL FREEZING MACHINE OPERATOR Acetaminoph 2017-03 No Notes: Do M emoria en 212 not exceed l 20:53: 4 gm/day. [place] 00 (Same as: Tylenol) Ondansetron 2017-03 No Notes: Kuldeep teto 2-12 (Same as: l 20:53: Zofran) [place] 00 MEDICATION WASTE Product Size: 4 mg Product Wasted: ___ mg Glucagon 2017-03 No 1 mg, [facility] 2-12 Route: IM, l 20:53: Drug form: [place] 00 PDR/INJ, PRN, kg, PRN Blood Glucose Results, Start date: 02/13/18 14:53:00 SHELL FREEZING MACHINE OPERATOR, Duration: 30 day, Stop date: 03/15/18 14:52:00 SHELL FREEZING MACHINE OPERATOR Dextrose 2017-03 No 25 gm, 50 Kuldeep teto 50% Syringe 2-12 mL, Route: l 20:53: IVP, Drug Form: INJ, kg, PRN, PRN Blood Glucose Results, Start date: 02/13/18 14:53:00 SHELL FREEZING MACHINE OPERATOR, Duration: 30 day, Stop date: 03/15/18 14:52:00 SHELL FREEZING MACHINE OPERATOR Acetaminoph 2017-03 No Notes: Do M emoria en 04-16 not exceed l 20:53: 4 gm/day. [place] 00 (Same as: Tylenol) Ondansetron 2017-03 No Notes: Kuldeep teto 2-12 (Same as: l 20:53: Zofran) [place] MEDICATION WASTE Product Size: 4 mg Product Wasted: ___ mg Glucagon 2017-03 No 1 mg, [facility] 212 Route: IM, l 20:53: Drug form: [place] PDR/INJ, PRN, kg, PRN Blood Glucose Results, Start date: 02/13/18 14:53:00 SHELL FREEZING MACHINE OPERATOR, Duration: 30 day, Stop date: 03/15/18 14:52:00 SHELL FREEZING MACHINE OPERATOR Dextrose 2017-03 No 25 gm, 50 Kuldeep teto 50% Syringe 2-12 mL, Route: l 20:53: IVP, Drug Form: INJ, kg, PRN, PRN Blood Glucose Results, Start date: 02/13/18 14:53:00 SHELL FREEZING MACHINE OPERATOR, Duration: 30 day, Stop date: 03/15/18 14:52:00 SHELL FREEZING MACHINE OPERATOR Acetaminoph 2017-03 No Notes: Do M emoria en 212 not exceed l 20:53: 4 gm/day. [place] 00 (Same as: Tylenol) Ondansetron 2017-03 No Notes: Kuldeep teto 2-12 (Same as: l 20:53: Zofran) [place] MEDICATION WASTE Product Size: 4 mg Product Wasted: ___ mg Glucagon 2017-03 No 1 mg, [facility] 2-12 Route: IM, l 20:53: Drug form: [place] PDR/INJ, PRN, kg, PRN Blood Glucose Results, Start date: 02/13/18 14:53:00 SHELL FREEZING MACHINE OPERATOR, Duration: 30 day, Stop date: 03/15/18 14:52:00 SHELL FREEZING MACHINE OPERATOR Dextrose 2017-03 No 25 gm, 50 Kuldeep teto 50% Syringe 2-12 mL, Route: l 20:53: IVP, Drug Form: INJ, kg, PRN, PRN Blood Glucose Results, Start date: 02/13/18 14:53:00 SHELL FREEZING MACHINE OPERATOR, Duration: 30 day, Stop date: 03/15/18 14:52:00 SHELL FREEZING MACHINE OPERATOR Acetaminoph 2017-03 No Notes: Do M emoria en 12 not exceed l 20:53: 4 gm/day. (Same as: Tylenol) Ondansetron 2017-03 No Notes: Kuldeep teto 2-12 (Same as: l 20:53: Zofran) MEDICATION WASTE Product Size: 4 mg Product Wasted: ___ mg Glucagon 2017-03 No 1 mg, Memoria 2-12 Route: IM, l 20:53: Drug form: [place] 00 PDR/INJ, PRN, kg, PRN Blood Glucose Results, Start date: 02/13/18 14:53:00 SHELL FREEZING MACHINE OPERATOR, Duration: 30 day, Stop date: 03/15/18 14:52:00 SHELL FREEZING MACHINE OPERATOR Dextrose 2017-03 No 25 gm, 50 Kuldeep teto 50% Syringe 2-12 mL, Route: l 20:53: IVP, Drug Form: INJ, kg, PRN, PRN Blood Glucose Results, Start date: 02/13/18 14:53:00 SHELL FREEZING MACHINE OPERATOR, Duration: 30 day, Stop date: 03/15/18 14:52:00 SHELL FREEZING MACHINE OPERATOR DULoxetine 2017-03 No 30 mg = 1 [...] tab, PO, l oral 18:48: Daily, # [place] enteric 00 30 tab, 0 coated Refill(s) [...] PO, l oral tablet 18:48: Bedtime, 0 [place] 00 Refill(s) midodrine 2017-03 No 5 mg = 2 Kuldeep teto 2.5 mg oral 2-12 tab, PO, l tablet 18:48: Daily, # [place] 00 180 tab, 0 Refill(s) busPIRone 2017-03 [...] , 8.6 mg l 18:48: =, PO, [place] 00 Daily, Refill(s) 0 atorvastati 2017-03 Yes 80 mg = 1 M emoria n 80 mg 2-12 tab, PO, l oral tablet 18:48: Bedtime, 0 [place] 00 Refill(s) midodrine 2017-03 No 5 mg = 2 Kuldeep teto 2.5 mg oral 2-12 tab, PO, l tablet 18:48: Daily, # [place] 00 180 tab, 0 Refill(s) busPIRone 2017-03 Yes 10 mg = 1 Mem oria 10 mg oral 2-12 tab, PO, l tablet 18:48: BID, 0 [place] 00 Refill(s) Trazodone 2017-03 No 50 mg [...] tab, PO, l oral 18:48: Daily, # [place] enteric 00 30 tab, 0 coated Refill(s) [...] , 8.6 mg l 18:48: =, PO, [place] 00 Daily, Refill(s) 0 atorvastati 2017-03 Yes 80 mg = 1 M emoria n 80 mg 2-12 tab, PO, l oral tablet 18:48: Bedtime, 0 [place] 00 Refill(s) midodrine 2017-03 No 5 mg = 2 Kuldeep teto 2.5 mg oral 2-12 tab, PO, l tablet 18:48: Daily, # [place] 00 180 tab, 0 Refill(s) busPIRone 2017-03 Yes 10 mg = 1 Mem oria 10 mg oral 2-12 tab, PO, l tablet 18:48: BID, 0 [place] 00 Refill(s) Trazodone 2017-03 No 50 mg [...] PO, l oral tablet 18:48: Bedtime, 0 [place] 00 Refill(s) midodrine 2017-03 No 5 mg [...] tab, PO, l tablet 18:48: Daily, 0 [place] 00 Refill(s) Aspirin 81 2017-03 No 162 [...] , 8.6 mg l 18:48: =, PO, [place] 00 Daily, Refill(s) 0 atorvastati 2017-03 Yes 80 mg = 1 M emoria n 80 mg 2-12 tab, PO, l oral tablet 18:48: Bedtime, 0 [place] 00 Refill(s) midodrine 2017-03 No 5 mg = 2 Kuldeep teto 2.5 mg oral 2-12 tab, PO, l tablet 18:48: Daily, # [place] 00 180 tab, 0 Refill(s) busPIRone 2017-03 Yes 10 mg = 1 Mem oria 10 mg oral 2-12 tab, PO, l tablet 18:48: BID, 0 [place] 00 Refill(s) Trazodone 2017-03 No 50 mg [...] tab, PO, l oral 18:48: Daily, # [place] enteric 00 30 tab, 0 coated Refill(s) [...] , 8.6 mg l 18:48: =, PO, [place] 00 Daily, Refill(s) 0 atorvastati 2017-03 Yes 80 mg = 1 M emoria n 80 mg 2-12 tab, PO, l oral tablet 18:48: Bedtime, 0 [place] 00 Refill(s) midodrine 2017-03 No 5 mg = 2 Kuldeep teto 2.5 mg oral 2-12 tab, PO, l tablet 18:48: Daily, # [place] 00 180 tab, 0 Refill(s) busPIRone 2017-03 Yes 10 mg = 1 Mem oria 10 mg oral 2-12 tab, PO, l tablet 18:48: BID, 0 [place] 00 Refill(s) Trazodone 2017-03 No 50 mg = 1 Mem oria Hydrochlori 2-12 tab, PO, l de 50 MG 18:48: TID, # 90 Herm ladi Oral Tablet 00 tab, 0 Refill(s) clopidogrel 2017-03 Yes [id number] 75mg Take 1 [facility] 75 mg 1-14 07 tablet by ity of tablet 00:00: mouth [place] 00 daily. [facility] clopidogrel 2017-03 Yes [id number] 75mg Take 1 [facility] 75 mg 1-14 07 tablet by ity of tablet 00:00: mouth [place] 00 daily. [facility] clopidogrel 2017-03 2020- No [id number] 75mg Take 1 [facility] 75 mg 1-14 09-10 tablet by ity of tablet 00:00: 00:00 mouth [place] 00 :00 daily. [facility] clopidogrel 2017-03 2020- No [id number] 75mg Take 1 [facility] 75 mg 1-14 09-10 tablet by ity of tablet 00:00: 00:00 mouth [place] 00 :00 daily. [facility] DULoxetine 2017-03 Yes [id number] 30mg Take 1 [facility] 30 mg 0-22 capsule by ity of capsule 00:00: mouth [place] 00 daily. [facility] busPIRone 2017-03 Yes [id number] 10mg Take 1 Un jody 10 mg 0-22 tablet by ity of tablet 00:00: mouth 2 [place] 00 (two) Medical times Branch daily. DULoxetine 2017-03 Yes [id number] 30mg Take 1 [facility] 30 mg 0-22 capsule by ity of capsule 00:00: mouth [place] 00 daily. [facility] busPIRone 2017-03 Yes [id number] 10mg Take 1 Un jody 10 mg 0-22 tablet by ity of tablet 00:00: mouth 2 [place] 00 (two) Medical times [facility] daily. DULoxetine 2017-03 2020- No [id number] 30mg Take 1 [facility] 30 mg 0-22 09-10 capsule by ity of capsule 00:00: 00:00 mouth [place] 00 :00 daily. [facility] busPIRone 2017-03 2020- No [id number] 10mg Take 1 U nivers 10 mg 0-22 09-10 tablet by ity of tablet 00:00: 00:00 mouth 2 [place] 00 :00 (two) Medical times Branch daily. DULoxetine 2017-03 2020- No [id number] 30mg Take 1 [facility] 30 mg 0-22 09-10 capsule by ity of capsule 00:00: 00:00 mouth [place] 00 :00 daily. [facility] busPIRone 2017-03 2020- No [id number] 10mg Take 1 U nivers 10 mg [...] [place] 00 daily. [facility] pantoprazol 2018-0 2020- No 40mg Take 1 Uni vers e 40 mg EC 9-08 11-09 tablet by ity of tablet 00:00: 00:00 mouth [place] 00 :00 daily. [facility] pantoprazol 2018-0 2020- No 40mg Take 1 Uni vers e 40 mg EC 9-08 11-09 tablet by ity of tablet 00:00: 00:00 mouth [place] 00 :00 daily. [facility] pantoprazol 2018-0 2020- No 40mg Take 1 Uni vers [...] Name Observation Time Observation Value Comments Source Heart rate 2021-06-01 15:26:00 82 /min Kaela tenorioboliang Body temperature 2021-06-01 15:26:00 36 Aretha Kaycee ey Seybold Respiratory rate 2021-06-01 15:26:00 16 /min Kaycee ey Seybold Body height 2021-06-01 15:26:00 177.8 cm Kaela tenorioboliang Body weight 2021-06-01 15:26:00 101.152 kg Kaela tenorioboliang BMI 2021-06-01 15:26:00 32.00 kg/m2 Kaela tenoriobold Systolic blood 2021-06-01 15:26:00 136 mm[Hg] Kaela Seybold pressure Diastolic blood 2021-06-01 15:26:00 90 mm[Hg] Kelse y Seybold pressure Systolic blood 2021-05-03 19:49:00 130 mm[Hg] Kaela Seybold pressure Diastolic blood 2021-05-03 19:49:00 78 mm[Hg] Kelse y Seybold pressure Heart rate 2021-05-03 19:49:00 109 /min Kaela tenorioboliang Body temperature 2021-05-03 19:49:00 36.67 Aretha Kaycee ey Seybold Respiratory rate 2021-05-03 19:49:00 21 /min Kaycee tenorio Seybold Body height 2021-05-03 19:49:00 177.8 cm Kaela tenorioboliang Body weight 2021-05-03 19:49:00 102.059 kg Kaela tenoriobold BMI 2021-05-03 19:49:00 32.28 kg/m2 Kaela tenorioboliang Systolic blood 2020-01-12 19:23:00 145 mm[Hg] Univer sity of pressure [facility] Diastolic blood 2020-01-12 19:23:00 93 mm[Hg] Unive [...] /min [facility] Systolic blood 2020-01-12 19:23:00 145 mm[Hg] Univer [facility]ity [facility] Diastolic blood 2020-01-12 19:23:00 93 mm[Hg] Unive rsity of pressure [facility] Heart rate 2020-01-12 19:12:00 91 /min [facility] Respiratory rate 2020-01-12 19:12:00 17 /min [facility] Body height 2020-01-12 19:12:00 180.3 cm [facility] Body weight 2020-01-12 19:12:00 108.5 kg [facility] BMI 2020-01-12 19:12:00 33.36 kg/m2 [facility] Oxygen saturation in 2020-01-12 19:12:00 92 /min [facility] Oxygen saturation in 2019-11-13 19:01:00 96 /min [facility] Systolic blood 2019-11-13 19:01:00 131 mm[Hg] [facility] Diastolic blood 2019-11-13 19:01:00 73 mm[Hg] Unive rsity of pressure [facility] Heart rate 2019-11-13 19:01:00 79 /min [facility] Body temperature 2019-11-13 19:01:00 36.17 Aretha [facility] Respiratory rate 2019-11-13 19:01:00 24 /min [facility] Body height 2019-11-13 19:01:00 180.3 cm [facility] Body weight 2019-11-13 19:01:00 109.317 kg [facility] BMI 2019-11-13 19:01:00 33.61 kg/m2 [facility] Respitory Rate 2018-08-16 16:55:00 Memori al [place] Systolic (mm Hg) 2018-08-16 16:55:00 Kuldeep rial [place] Diastolic (mm Hg) 2018-08-16 16:55:00 Mem o[facility] [place] Heart Rate 2018-08-16 16:55:00 [facility] Temperature Oral (F) 2018-08-16 13:25:00 96.9 F [facility] Respitory Rate 2018-08-16 13:25:00 [facility] Systolic (mm Hg) 2018-08-16 13:25:00 Kuldeep rial [facility] Diastolic (mm Hg) 2018-08-16 13:25:00 Mem o[facility] Heart Rate 2018-08-16 13:25:00 [facility] BMI Calculated 2018-08-16 07:46:00 [facility] Height 2018-08-16 07:46:00 185.42 cm [facility] Weight 2018-08-16 07:46:00 [facility] Systolic (mm Hg) 2018-08-16 07:44:00 Kuldeep [facility] Diastolic (mm Hg) 2018-08-16 07:44:00 [facility] Heart Rate 2018-08-16 07:44:00 [facility] Respitory Rate 2018-08-16 07:44:00 [facility] Temperature Oral (F) 2018-08-16 07:44:00 98.2 F [facility] Temperature Oral (F) 2018-08-16 06:58:00 98.3 F [facility] Weight 2018-08-16 01:17:00 [facility] Height 2018-08-16 01:17:00 185.42 cm [facility] BMI Calculated 2018-08-16 01:17:00 [facility] Height 2018-06-19 10:53:00 185.42 cm [facility] BMI Calculated 2018-06-19 10:53:00 [facility] Weight 2018-06-19 10:53:00 [facility] Temperature Oral (F) 2018-06-03 20:45:00 98.2 F [facility] Systolic (mm Hg) 2018-06-03 20:45:00 Kuldeep rial [facility] Diastolic (mm Hg) 2018-06-03 20:45:00 [facility] Respitory Rate 2018-06-03 20:45:00 [facility] Heart Rate 2018-06-03 20:45:00 [facility] Systolic (mm Hg) 2018-06-03 19:45:00 Kuldeep rial [facility] Diastolic (mm Hg) 2018-06-03 19:45:00 Mem o[facility] Respitory Rate 2018-06-03 19:45:00 [facility] Heart Rate 2018-06-03 19:45:00 [facility] Systolic (mm Hg) 2018-06-03 19:15:00 Kuldeep rial [facility] Diastolic (mm Hg) 2018-06-03 19:15:00 [facility] Respitory Rate 2018-06-03 19:15:00 [facility] Heart Rate 2018-06-03 19:15:00 [facility] Temperature Oral (F) 2018-06-03 18:45:00 97.8 F [facility] BMI Calculated 2018-06-03 14:00:00 [facility] Weight 2018-06-03 14:00:00 [facility] Height 2018-06-03 14:00:00 185.4 cm [facility] Temperature Oral (F) 2018-06-03 12:15:00 98.1 F [facility] BMI Calculated 2018-06-02 23:24:00 [facility] Weight 2018-06-02 23:24:00 [facility] Height 2018-06-02 23:24:00 185.42 cm [facility] Weight 2018-06-02 20:36:00 [facility] Respitory Rate 2018-05-21 12:44:00 [facility] Systolic (mm Hg) 2018-05-21 12:44:00 Kuldeep [facility] Diastolic (mm Hg) 2018-05-21 12:44:00 [facility] o[facility] Temperature Oral (F) 2018-05-21 12:44:00 98.3 F [facility] Heart Rate 2018-05-21 12:44:00 [facility] Systolic (mm Hg) 2018-05-21 09:00:00 Kuldeep [facility] Diastolic (mm Hg) 2018-05-21 09:00:00 [facility] Heart Rate 2018-05-21 09:00:00 [facility] Respitory Rate 2018-05-21 09:00:00 [facility] Temperature Oral (F) 2018-05-21 09:00:00 97.8 F [facility] Systolic (mm Hg) 2018-05-21 05:00:00 Kuldeep [facility] Diastolic (mm Hg) 2018-05-21 05:00:00 [facility] Temperature Oral (F) 2018-05-21 05:00:00 98.0 F [facility] Respitory Rate 2018-05-21 05:00:00 [facility] Heart Rate 2018-05-21 05:00:00 [facility] Weight 2018-05-09 18:49:00 [facility] BMI Calculated 2018-05-09 18:49:00 [facility] Height 2018-05-09 18:49:00 185.42 cm [facility] Systolic (mm Hg) 2018-03-01 19:00:00 Kuldeep [facility] Diastolic (mm Hg) 2018-03-01 19:00:00 [facility] Systolic (mm Hg) 2018-03-01 18:00:00 Kuldeep [facility] Diastolic (mm Hg) 2018-03-01 18:00:00 [facility] Temperature Oral (F) 2018-03-01 18:00:00 98.0 F [facility] Systolic (mm Hg) 2018-03-01 17:00:00 Kuldeep [facility] Diastolic (mm Hg) 2018-03-01 17:00:00 [facility] Temperature Oral (F) 2018-03-01 14:00:00 98.1 F [facility] Temperature Oral (F) 2018-03-01 11:42:00 98 F [facility] Respitory Rate 2018-02-28 14:00:00 [facility] Respitory Rate 2018-02-28 13:00:00 [facility] Respitory Rate 2018-02-28 12:00:00 [facility] BMI Calculated 2018-02-28 10:03:00 [facility] Height 2018-02-28 10:03:00 185.42 cm [facility] Weight 2018-02-28 10:03:00 [facility] Weight 2018-02-28 10:01:00 [facility] BMI Calculated 2018-02-28 10:01:00 [facility] Height 2018-02-28 10:01:00 185.42 cm [facility] Temperature Oral (F) 2018-02-28 08:15:00 98.0 F [facility] Systolic (mm Hg) 2018-02-28 08:15:00 Kuldeep [facility] Diastolic (mm Hg) 2018-02-28 08:15:00 [facility] Respitory Rate 2018-02-28 08:15:00 [facility] Systolic (mm Hg) 2018-02-28 07:45:00 Kuldeep [facility] Diastolic (mm Hg) 2018-02-28 07:45:00 [facility] Respitory Rate 2018-02-28 07:45:00 [facility] Systolic (mm Hg) 2018-02-28 07:27:00 Kuldeep [facility] Diastolic (mm Hg) 2018-02-28 07:27:00 [facility] Temperature Oral (F) 2018-02-28 07:27:00 98.0 F [facility] Respitory Rate 2018-02-28 07:27:00 [facility] Temperature Oral (F) 2018-02-28 05:30:00 97.9 F [facility] Height 2018-02-28 03:15:00 185.42 cm [facility] Heart Rate 2018-02-28 03:15:00 [facility] BMI Calculated 2018-02-28 03:15:00 [facility] Weight 2018-02-28 03:15:00 [facility] Systolic (mm Hg) 2018-02-21 16:48:00 Kuldeep [facility] Diastolic (mm Hg) 2018-02-21 16:48:00 [facility] Temperature Oral (F) 2018-02-21 16:48:00 98.3 F [facility] Respitory Rate 2018-02-21 16:48:00 [facility] Heart Rate 2018-02-21 16:48:00 [facility] Heart Rate 2018-02-21 13:47:00 [facility] Temperature Oral (F) 2018-02-21 13:47:00 97.7 F [facility] Systolic (mm Hg) 2018-02-21 13:47:00 Kuldeep rial [facility] Diastolic (mm Hg) 2018-02-21 13:47:00 [facility] Respitory Rate 2018-02-21 13:47:00 [facility] Temperature Oral (F) 2018-02-21 10:00:00 98.3 F [facility] Systolic (mm Hg) 2018-02-21 10:00:00 Kuldeep [facility] Diastolic (mm Hg) 2018-02-21 10:00:00 [facility] Heart Rate 2018-02-21 10:00:00 [facility] Respitory Rate 2018-02-21 10:00:00 [facility] BMI Calculated 2018-02-13 20:53:00 [facility] Height 2018-02-13 20:53:00 185.42 cm [facility] Weight 2018-02-13 20:53:00 [facility] Height 2018-02-13 18:42:00 185.42 cm [facility] Weight 2018-02-13 18:42:00 [facility] BMI Calculated 2018-02-13 18:42:00 [facility] Systolic (mm Hg) 2018-02-13 18:42:00 Kuldeep [facility] Diastolic (mm Hg) 2018-02-13 18:42:00 [facility] Procedures Procedure Date / Time Performing Clinician Source Performed [id number] 2022-06-24 00:00:00 NGUCH.08 [facility] [id number] 2022-06-24 00:00:00 NGUCH.08 [facility] [id number] 2022-06-24 00:00:00 NGUCH.08 [facility] [id number] 2022-06-24 00:00:00 NGUCH.08 [facility] [id number] 2022-06-24 00:00:00 NGUCH.08 [facility] [id number] 2022-06-24 00:00:00 NGUCH.08 [facility] EXTERNAL PROVIDER - ADC 2020-11-03 05:01:00 Doctor Unassigned, [facility] REFERRAL [facility] AGREEMENTS AUTHORIZATIONS 2019-11-11 05:01:00 Doctor Unassigned, [facility] AND IRREVOCABLE [facility] ASSIGNMENTS (FORM 2001) CABG x 4 - Coronary 2017-11-02 05:00:00 [facility] artery bypass grafts x 4 CABG - Coronary artery 2017-11-02 05:00:00 Doc vasquez [facility] bypass graft Repair of umbilical 2016-03-05 00:00:00 [facility] hernia Encounters Start End Encounter Admission Attending Care Care Encounter Source Date/Time Date/Time Type Type Clinicians Facility Department ID 2018-06-02 Inpatient E [facility] MED 7501 Mem oria 16:35:00 l [facility] [place] 2022-06-24 2022-06-25 Inpatient EM NICHOLAS Red INTE.02 [id number] [facility] 02:18:00 11:01:00 Jamal 55 [facility] [place], operated by [facility] 2022-06-24 2022-06-24 Outpatient ELSA Red LABO [id number] [facility] 06:25:00 06:25:00 Jamal 77 [facility] 2022-05-11 2022-05-11 Outpatient KAELA ALLEN [id number] Kaela 00:00:00 00:00:00 PABLO Raymondol tonia 2021-06-17 2021-06-17 Outpatient KAELA ALLEN [id number] Kaela 00:00:00 00:00:00 PABLO Raymondol tonia 2021-06-13 2021-06-13 Outpatient KAELA BAILEY [id number] Kaela 00:00:00 00:00:00 VERITO Raymondol tonia 2021-06-01 2021-06-01 Office Garfield Allen 1.2.840.114 [id number] Kaela 11:00:00 11:15:00 Visit Pablo Méndez 350.1.13.13 Se schaffer 1.2.7.2.686 [id number] [id number] 2021-05-31 2021-05-31 Outpatient KAELA ALLEN [id number] Kaela 10:30:00 10:30:00 PABLO Martinybol d 2021-05-04 2021-05-04 Outpatient LAB90 KAELA BRICE [id number] Kaela 09:45:00 09:45:00 Seybol d 2021-05-04 2021-05-04 Outpatient KAELA ALLEN KAELA [id number] Kaela 00:00:00 00:00:00 PABLO ybol d 2021-05-03 2021-05-03 Office Garfield Allen 1.2.840.114 [id number] Kaela 14:15:00 15:00:00 Visit Pablo Dev 350.1.13.13 Se schaffer 1.2.7.2.686 [id number] 2021-05-03 2021-05-03 Outpatient KAELA ALLEN KAELA [id number] Kaela 00:00:00 00:00:00 PABLO Raymondol tonia 2021-01-13 2021-01-13 Outpatient KEYONA SPAIN [facility] [id number] Univers 15:00:00 15:00:00 KEYONA SUAZO i ty of [facility] 2020-11-03 2020-11-03 Orders Doctor TERRY 1.2.840.114 [id number] Univers 00:00:00 00:00:00 Only Unassigned, EMMA 350.1.13.10 ity of [facility] 4.2.7.2.686 Oni as [phone] [address] 2020-07-12 2020-07-12 Outpatient R TIN [facility] [id number] Univers 13:00:00 13:00:00 JD smith o f [facility] 2020-05-11 2020-05-11 [facility] 1.2.840.114 [id number] Univers 00:00:00 00:00:00 Outreach Mahesh PRIMARY 350.1.13.10 i ty of [facility] [place] PAVSUNIL[place] [phone] [address] 2020-05-11 2020-05-11 [facility] 1.2.840.114 [id number] 00:00:00 00:00:00 Outreach Mahesh PRIMARY 350.1.13.10 Arian CARE 4.2.7.2.686 PAVILLION [id number] [facility] 2020-02-06 2020-02-06 Outpatient [facility] [id number] Univers 13:00:00 13:00:00 LUCITA smith [facility] 2020-01-19 2020-01-19 Telephone [facility] 1.2.348.884 [id number] Univers 00:00:00 00:00:00 Arvinkatiuska [place] 350.1.13.10 ity of [place] Profess[place] [phone] [address] 2020-01-19 2020-01-19 Telephone [facility] 1.2.149.847 [id number] 00:00:00 00:00:00 Arvinkatiuska Vadim 350.1.13.10 [place] 4.2.7.2.[phone] 2020-01-14 2020-01-14 Outpatient R [facility] [id number] Univers 11:40:00 11:40:00 JD wong [facility] 2020-01-12 2020-01-12 Office [facility] 1.2.840.114 [id number] Univers 12:41:56 13:52:29 Visit Arvinkatiuska Vadim 350.1.13.10 [place] [phone] [address] 2020-01-12 2020-01-12 Office [facility] 1.2.840.114 [id number] 12:41:56 13:52:29 Visit Jd Fierro 350.1.13.10 [place] 4.2.7.2.[address] Professio [id number] [address] 2020-01-12 2020-01-12 Outpatient R [facility] [id number] Univers 13:00:00 13:00:00 ARVINKATIUSKA sarah o f [facility] 2019-11-13 2019-11-13 Office Care, Denny Primary [facility] 1.2.840 .114 [id number] Univers 13:03:27 14:10:15 Visit Arsen Dixon [facility] 350.1.13.10 ity [place] PRIMARY [id number] [facility] CARE - [address] NAJMA 2019-11-13 2019-11-13 Telephone Amrik Arsen LETY 1.2.840.114 [id number] Univers 00:00:00 00:00:00 [facility] 350.1.13.10 it y of [place] [id number] [facility] [address] Branch 2019-11-11 2019-11-11 Outpatient Sue DIXON ARSEN [facility] [id number] Univers 10:30:00 10:30:00 ity of [facility] 2019-11-11 2019-11-11 Orders Doctor STEWART 1.2.840.114 [id number] Univers 00:00:00 00:00:00 Only Unassigned, EMMA 350.1.13.10 ity of [facility] 4.2.7.2.686 Oni as [phone] [facility] 009 Branch 2019-05-27 2019-05-27 Telephone TERRY Roa 1.2.840.114 [id number] Univers 00:00:00 00:00:00 Sofia EMMA 350.1.13.10 it y of [facility] [place] [id number] [facility] 037 Branch 2019-03-28 2019-03-28 Telephone HUMPHREY Mcmahon 1.2.840.114 [id number] Univers 00:00:00 00:00:00 [facility] Y HEALTH 350.1.13.10 ity of [place] [id number] [facility] 059 Branch 2018-08-16 2018-08-16 Observatio nullFlavo [facility] [id number] Memoria 01:10:48 18:24:00 jasmina Ahuja 03 [facility] 2018-08-16 2018-08-16 Observatio nullFlavo [facility] [id number] [id number] Memoria 01:10:48 18:24:00 jasmina Ahuja 03 [facility] 2018-08-15 2018-08-16 Outpatient Emery [facility] [id number] [facility] 20:10:48 13:24:00 Gladys 03 [place] 2018-08-16 2018-08-16 Outpatient E [facility] [id number] [facility] 01:28:00 01:28:00 2018-06-21 2018-06-21 Bedded nullFlavo [facility] [id number] Memoria 15:57:00 21:41:00 Outpatient r Seym[facility] 02 [facility] 2018-06-21 2018-06-21 Bedded nullFlavo [facility] [id number] Memoria 15:57:00 21:41:00 Outpatient r Seymour 02 [facility] 2018-06-21 2018-06-21 Outpatient Vasquez, [facility] [id number] 10:57:00 16:41:00 Pepito Tapia 2018-06-21 2018-06-21 Outpatient [facility] [id number] Memoria 10:57:00 10:57:00 l [facility] 2018-06-02 2018-06-03 Inpatient nullFlavo [facility] [id number] Memoria 20:34:00 23:50:00 r Cody 01 [facility] 2018-06-02 2018-06-03 Inpatient nullFlavo [facility] [id number] Memoria 20:34:00 23:50:00 r Cody 01 [facility] 2018-06-02 2018-06-03 Outpatient Eddy, [facility] [id number] 15:34:00 18:50:00 Timothy 2018-05-09 2018-05-21 Inpatient nullFlavo [facility] [id number] Memoria 18:05:00 17:09:00 r Seymour 66 [facility] 2018-05-09 2018-05-21 Inpatient nullFlavo [facility] [id number] Memoria 18:05:00 17:09:00 r Seymour 66 [facility] 2018-05-09 2018-05-21 Outpatient Gabe, [facility] [id number] 12:05:00 12:09:00 Mimi 66 M 2018-05-08 2018-05-08 Ambulatory nullFlavo [facility] [id number] Memoria 19:30:00 19:30:00 Pre-Reg r Cardiology 03 [facility] 2018-05-08 2018-05-08 [place] [id number] Memoria 19:30:00 19:30:00 Pre-Reg r Cardiology 03 l [facility] 2018-05-08 2018-05-08 Outpatient MHIE [place] [id number] Memoria 13:30:00 13:30:00 03 rebeca Ahuja 2018-05-08 2018-05-08 Outpatient [facility] [id number] 13:30:00 13:30:00 Hector Vanegas 03 2018-04-29 2018-04-29 Ambulatory nullFlavo [facility] [id number] Memoria 16:30:00 16:30:00 Pre-Reg r Cardiology 02 l [facility] 2018-04-29 2018-04-29 [place] [id number] Memoria 16:30:00 16:30:00 Pre-Reg r Cardiology 02 [facility] 2018-04-29 2018-04-29 Outpatient IE IE [id number] Memoria 10:30:00 10:30:00 02 [facility] 2018-04-29 2018-04-29 Outpatient Seymour [facility] [id number] 10:30:00 10:30:00 Hector Vanegas 2018-04-05 2018-04-06 Outpt Diag nullFlavo [facility] [id number] Memoria 22:00:00 05:59:00 Services r Outpatient 00 [facility] 2018-04-05 2018-04-06 Outpt Diag nullFlavo [facility] [id number] Memoria 22:00:00 05:59:00 Services r Outpatient 00 [facility] 2018-04-05 2018-04-05 Outpatient Nghia Oneal 2.16.840. 2.16.840. 1. [id number] 16:00:00 23:59:00 M [id number]. [id number] 3.615.30 5.30 2018-02-28 2018-03-01 Inpatient [facility] [id number] Memoria 09:45:00 20:05:00 r Seymour 61 [facility] 2018-02-28 2018-03-01 Inpatient nullFlavo [facility] [id number] Memoria 09:45:00 20:05:00 r Cody 61 [facility] 2018-02-28 2018-03-01 Outpatient Pe, Jamie Jamie [facility] [id number] 03:45:00 14:05:00 A 63 2018-02-28 2018-02-28 Emergency nullFlavo [facility] [id number] Memoria 03:10:00 08:14:00 r Seymour 00 l [facility] 2018-02-28 2018-02-28 Emergency nullFlavo [facility] [id number] Memoria 03:10:00 08:14:00 r Seymour 00 l [facility] 2018-02-27 2018-02-28 Outpatient Ilbin, [facility] [id number] 21:10:00 02:14:00 Brigido Dick 2018-02-13 2018-02-21 Inpatient nullFlavo [facility] [id number] Memoria 20:01:00 20:00:00 r Cody 46 [facility] 2018-02-13 2018-02-21 Inpatient nullFlavo [facility] [id number] Memoria 20:01:00 20:00:00 r Seymour 46 [facility] 2018-02-13 2018-02-21 Outpatient Osuagviktoriya, [facility] [id number] 14:01:00 14:00:00 Chi Camilla Nielsen 2018-02-13 2018-02-14 [place] [id number] Memoria 18:30:00 05:59:59 r Cardiology 01 [facility] 2018-02-13 2018-02-14 [place] [id number] Memoria 18:30:00 05:59:59 r Cardiology 01 [facility] 2018-02-13 2018-02-13 [facility] [id number] 12:30:00 23:59:59 Hector Gene 2018-02-13 2018-02-13 Outpatient MHIE IE [id number] Memoria 12:30:00 12:30:00 01 rebeca Cody 2018-02-11 2018-02-11 [place] [id number] Memoria 17:00:00 17:00:00 Pre-Reg r Cardiology 00 [facility] 2018-02-11 2018-02-11 Ambulatory nullFlavo [facility] [id number] Memoria 17:00:00 17:00:00 Pre-Reg r Cardiology 00 l [facility] 2018-02-11 2018-02-11 Outpatient Seymour, [facility] [id number] 11:00:00 11:00:00 Hector Vanegas 00 Results Test Description Test Time Test [...] RATIOS: RISK CHOLHDL) MALE FEMALE1/2 AVERAGE 3.43 3.27AVERA GE 4.97 4.442X AVERAGE 9.55 7.053X AVERAGE 23.39 11.04 NOTE THAT THE REFERENCE VALUE IS RELATED TO RISK LEVELS ASRECOMMENDED B Y THE [facility]G, [facility] . [Automated mess age] The system which Questra nerated this result tra nsmitted reference range : 0-. The reference range was not used to interpr et this result as normal/abnormal . HDL CHOLESTEROL 47 MG/DL 40-59 N (test code = HDL) NON-HDL CHOLESTEROL 89 mg/dL <130 (test code = NHDL) LIPOPROTEIN LDL 82 MG/DL 0-129 N <100 OPTIMAL 100 - 129 (test code = LDL) NEAR OPTIM AL/ABOVE [id number] - 15 9 [id number] - 189 HIGH>OR= 190 VE RY HIGHNOTE [...] this result as normal/abnormal . BASIC METABOLIC [id number] 05:35:00 Test Item Value Reference Range Interpretation [...] MG/DL 8.5-10.1 L = CA) CBC W/AUTO [id number] 05:34:00 Test Item Value Reference Range Interpretation [...] DIFF REQUIRED NO DIFF/SCN CRITERIA SLIDE R EVIEW (test code = MDIFF) CONSISTA NT WITH AUTO DIFFERENTI AL. COAGULATION TIME [id number] 02:25:00 Test Item Value Reference Range Interpretation Comments COAGULATION TIME ACTIVATED (test code 267 SEC 74-125 H = ACT) - XR CHEST 1 [id number] 01:41:00 [facility] 1955 Sex: M Name: PATITO HARDY [place] : 1955 Age/S: 66 / M [id number] Unit #: [id number] Loc: [place] [address] Phys: Sydney De Leon MD Acct: [id number] Dis Date: Status: REG ER PHONE #: [phone] Exam Date: 06/24/2022 0139 FAX #: Reason: chest pain EXAMS: CPT: [id number] XR CHEST 1 V 05950 Fluoro Time: DAP (Gy m2): Air Kerma (mGy): AP Portable Chest Location Code M12 HISTORY: chest pain FINDINGS: The left lung base and costophrenic angle are not fully included in the fvejc-eb-fbbo. Mild atelectatic changes are present in the left lower lobe. Right lung is clear. There is no pneumothorax. Cardiac silhouette and mediastinum appear within normal limits. IMPRESSION: Mild left basilar montoya bsegmental atelectasis. Limited study. at 0141 Reported and signed by: Janet Queen M.D. CC: Sydney De Leon MD PAGE 1 Signed Report Name: PATITO HARDY [place] : 1955 Age/S: 66 / M [id number] [address] Unit#: [id number] Loc: [place] [address] Phys: Sydney De Leon MD Acct: [id number] Dis Date: Status:REG ER PHONE #: [phone] Exam Date: 06/24/2022 0139 FAX #: Reason: chest pain EXAMS: CPT: [id number] XR CHEST 1 V 69112 Fluoro Time: DAP (Gy m2): Air Kerma (mGy): (Continued) Technologist: Alice Posada, RT(R)(CT) Trnscb Date/Time: 06/24/2022 (014) DelaneyMA50 Orig Print D/T: S: 06/24/2022 (014) PAGE 2 Signed ReportTROP-I HIGH [id number] 01:38:00 Test Item Value Reference Range Interpretation [...] URLs may varyby method. Completed by Nursing: [id number] 01:38:00 Test Item Value Reference Range Interpretation [...] TESTS AND APPROPRIATECLIN ICAL EUALUATIONS. BASIC METABOLIC [id number] 01:38:00 Test Item Value Reference Range Interpretation [...] CK) Completed by Nursing: NONT PRO-BRAIN NATRIURETIC [id number] 01:38:00 Test Item Value Reference Range Interpretation Comments NT PRO-BRAIN NATRIURETIC PEPTI 127 PG/ML 0-100 H (test code = PROBNP) Completed by Nursing: NOCBC W/O [id number] 01:19:00 Test Item Value Reference Range Interpretation [...] = 9.90 fL 7.0-9.6 H MPV) CHEM [id number] 09:13:00 Test Item Value Reference Range Interpretation Comments Bili Indirect Unable to See_Comment [Automated (test code = Bili Calculate message] T he system Indirect) which generated this result transmitted reference range : <=1.0. The reference range was not used to interpret this result as normal/abnormal . [facility] [employer] [id number] 09:13:00 Test Item Value Reference Range Interpretation Comments Bili Direct (test code no gt See_Comment [Aut omated message] The = Bili Direct) system which generated this result tra nsmitted reference range : <=0.3. The reference r ondina was not used to int erpret this result as cassie l/abnormal. [facility] [employer] [id number] 09:13:00 Test Item Value Reference Range Interpretation Comments Total Protein (test code = Total 6.9 6.4-8.4 Protein) [facility] [employer] [id number] 09:13:00 Test Item Value Reference Range Interpretation Comments Albumin Lvl (test code = Albumin Lvl) 3.0 3.5-5.0 [facility]2019-06-14 09:13:00 Test Item Value Reference Range Interpretation Comments Globulin (test code = Globulin) 3.9 2.7-4.2 [facility]2019-06-14 09:13:00 Test Item Value Reference Range Interpretation Comments Alk Phos (test code = Alk Phos) 214 39-136 [facility]2019-06-14 09:13:00 Test Item Value Reference Range Interpretation Comments Bili Total (test code = Bili Total) 0.3 0.2-1.3 [facility]2019-06-14 09:13:00 Test Item Value Reference Range Interpretation Comments AST (test code = AST) 207 See_Comment [Auto mated message] The system which ge nerated this result transmit garrett reference range : <=37. The reference range was not used to interpr et this result as cassie l/abnormal. [facility]2019-06-14 09:13:00 Test Item Value Reference Range Interpretation Comments A/G Ratio (test code = A/G Ratio) 0.8 1 0.7-1.6 [facility]2019-06-14 09:13:00 Test Item Value Reference Range Interpretation Comments ALT (test code = ALT) 148 See_Comment [Auto mated message] The system which ge nerated this result transmit garrett reference range : <=65. The reference range was not used to interpr et this result as cassie l/abnormal. [id number] Test Item Value Reference Range Interpretation Comments AGAP (test code = AGAP) 11.2 10.0-20.0 [facility]MwaoldyYYVPFCCGXNFE5402-04-38 09:13:00 Test Item Value Reference Range Interpretation Comments eGFR (test code = eGFR) 85 [facility] HospitalVairnawSLIAUBFJHWZH5467-12-36 09:13:00 Test Item Value Reference Range Interpretation Comments Creatinine Lvl (test code = Creatinine 0.96 0.50-1.40 Lvl) [facility] HospitalHmuoeveAKJIXHQSXYPG4721-82-57 09:13:00 Test Item Value Reference Range Interpretation Comments Potassium Lvl (test code = Potassium 4.2 3.5-5.1 Lvl) [facility] HospitalDiusgptWQMDROJZSFOW8967-66-96 09:13:00 Test Item Value Reference Range Interpretation Comments Sodium Lvl (test code = Sodium Lvl) 141 135-145 [facility] HospitalYfmxekoHKOQOPQQCWBG1271-27-21 09:13:00 Test Item Value Reference Range Interpretation Comments Chloride Lvl (test code = Chloride Lvl) 110 95-109 [facility] HospitalRwevlnzYBAEYADUUMLC4752-34-16 09:13:00 Test Item Value Reference Range Interpretation Comments CO2 (test code = CO2) 24 24-32 [facility] HospitalCscjbupLECGHKHYRTNS4446-84-78 09:13:00 Test Item Value Reference Range Interpretation Comments BUN (test code = BUN) 19 7-22 [facility] HospitalHzqxtqnPTAYIBYUUJSU4312-89-57 09:13:00 Test Item Value Reference Range Interpretation Comments Glucose Lvl (test code = Glucose Lvl) 86 70-99 [facility] HospitalQwaedihSBMCTKHTNUDX3139-32-12 09:13:00 Test Item Value Reference Range Interpretation Comments Calcium Lvl (test code = Calcium Lvl) 9.0 8.5-10.5 [facility]VmzeveaPOYZXNUTGW0086-22-21 09:13:00 Test Item Value Reference Range Interpretation Comments Microcyte (test code = 1+ *ABN*(08/16/18 Microcyte) 4:13 AM) [facility]neTxvdjerVATOSCGVUP2704-01-16 09:13:00 Test Item Value Reference Range Interpretation Comments Neutrophils # (test code = Neutrophils 2.7 1.5-8.1 #) [facility]neVgojmwvWVVXKMMTUJ5165-04-55 09:13:00 Test Item Value Reference Range Interpretation Comments Lymphocytes # (test code = Lymphocytes 1.3 1.0-5.5 #) [facility]neSgezwqvQHRZYCVLTE1852-06-99 09:13:00 Test Item Value Reference Range Interpretation Comments Segs (test code = Segs) 56.2 45.0-75.0 [facility]neTxsoylfYQIOVIHKCA2739-56-16 09:13:00 Test Item Value Reference Range Interpretation Comments Monocytes # (test code 0.4 See_Comment [Aut omated message] The = Monocytes #) system which generated this result tra nsmitted reference range : <=0.8. The reference r ondina was not used to int erpret this result as normal/abnormal . [facility]neAxretkfIYPKUEBDHD2947-52-66 09:13:00 Test Item Value Reference Range Interpretation Comments Lymphocytes (test code = Lymphocytes) 26.8 20.0-40.0 [facility] Cle[facility]neJwvdkheXUEXODVRIN1095-36-47 09:13:00 Test Item Value Reference Range Interpretation Comments Monocytes (test code = Monocytes) 8.7 2.0-12.0 [facility] CleburneNdzlculVVDXVEBBGA5579-12-73 09:13:00 Test Item Value Reference Range Interpretation Comments Basophils (test code = 2.1 See_Comment [Aut omated message] The Basophils) system which ge nerated this result tra nsmitted reference range : <=1.0. The reference r ondina was not used to int erpret this result as normal/abnormal . [facility] CleburneUndevrnCNAOPJBLIZ7600-36-01 09:13:00 Test Item Value Reference Range Interpretation Comments Eosinophils (test code = 6.2 See_Comment [A utomated message] The Eosinophils) system which ge nerated this result tra nsmitted reference range : <=4.0. The reference r ondina was not used to int erpret this result as normal/abnormal . [facility] Cle[facility]neWdkhhdcUMLKWAVLYZ0990-73-69 09:13:00 Test Item Value Reference Range Interpretation Comments Basophils # (test code 0.1 See_Comment [Aut omated message] The = Basophils #) system which generated this result tra nsmitted reference range : <=0.2. The reference r ondina was not used to int erpret this result as normal/abnormal . [facility] Cle[facility]neRvdwdqgXNMXPMNOSN4683-09-29 09:13:00 Test Item Value Reference Range Interpretation Comments Eosinophils # (test code 0.3 See_Comment [A utomated message] The = Eosinophils #) system [facility] h generated this result tra nsmitted reference range : <=0.5. The reference r ondina was not used to int erpret this result as normal/abnormal . [facility] CleburneRyzfgwsIQXUUARXHR4599-47-75 09:13:00 Test Item Value Reference Range Interpretation Comments MCV (test code = MCV) 77.7 80.0-94.0 [facility] CleburneGexbciqLGGTSFNPKE0274-58-54 09:13:00 Test Item Value Reference Range Interpretation Comments Hgb (test code = Hgb) 10.5 14.0-18.0 [facility] Cle[facility]neOaydugvCQNJCVYXDE4851-49-12 09:13:00 Test Item Value Reference Range Interpretation Comments Hct (test code = Hct) 33.2 42.0-54.0 [facility] CleburneViristnDNHJCBPKRA4188-96-68 09:13:00 Test Item Value Reference Range Interpretation Comments WBC (test code = WBC) 4.7 3.7-10.4 [facility] CleburneRhmplvjQZPCWEDLJR2319-64-08 09:13:00 Test Item Value Reference Range Interpretation Comments RBC (test code = RBC) 4.27 4.70-6.10 [facility]nePrkxkqrMZOSLAAESQ6051-16-32 09:13:00 Test Item Value Reference Range Interpretation Comments MCH (test code = MCH) 24.5 pg 27.0-31.0 [facility] Cle[facility]neNlwkwtfQUJDMSGUIO1617-89-32 09:13:00 Test Item Value Reference Range Interpretation Comments Platelet (test code = Platelet) 267 133-450 [facility] Cle[facility]neYkhydygLQXYKPNILG0369-35-09 09:13:00 Test Item Value Reference Range Interpretation Comments MPV (test code = MPV) 7.8 7.4-10.4 [facility] Cle[facility]neWswfesmIHWHURAOLS6166-14-15 09:13:00 Test Item Value Reference Range Interpretation Comments MCHC (test code = MCHC) 31.5 32.0-36.0 [facility] Cle[facility]nePjhffvzFHCSISSHCX0689-01-47 09:13:00 Test Item Value Reference Range Interpretation Comments RDW (test code = RDW) 19.2 11.5-14.5 [facility]2019-06-14 09:13:00 Test Item Value Reference Range Interpretation Comments Bili Indirect Unable to See_Comment [Automated (test code = Bili Calculate message] T he system Indirect) which generated this result transmitted reference range : <=1.0. The reference range was not used to interpret this result as normal/abnormal . [facility]2019-06-14 09:13:00 Test Item Value Reference Range Interpretation Comments Bili Direct (test code no gt See_Comment [Aut omated message] The = Bili Direct) system which generated this result tra nsmitted reference range : <=0.3. The reference r ondina was not used to int erpret this result as cassie l/abnormal. [facility]2019-06-14 09:13:00 Test Item Value Reference Range Interpretation Comments Total Protein (test code = Total 6.9 6.4-8.4 Protein) [facility]2019-06-14 09:13:00 Test Item Value Reference Range Interpretation Comments Albumin Lvl (test code = Albumin Lvl) 3.0 3.5-5.0 [facility]2019-06-14 09:13:00 Test Item Value Reference Range Interpretation Comments Globulin (test code = Globulin) 3.9 2.7-4.2 [facility]2019-06-14 09:13:00 Test Item Value Reference Range Interpretation Comments Alk Phos (test code = Alk Phos) 214 39-136 [facility]2019-06-14 09:13:00 Test Item Value Reference Range Interpretation Comments Bili Total (test code = Bili Total) 0.3 0.2-1.3 [facility]2019-06-14 09:13:00 Test Item Value Reference Range Interpretation Comments AST (test code = AST) 207 See_Comment [Auto mated message] The system which ge nerated this result transmit garrett reference range : <=37. The reference range was not used to interpr et this result as cassie l/abnormal. [facility]2019-06-14 09:13:00 Test Item Value Reference Range Interpretation Comments A/G Ratio (test code = A/G Ratio) 0.8 1 0.7-1.6 [facility]2019-06-14 09:13:00 Test Item Value Reference Range Interpretation Comments ALT (test code = ALT) 148 See_Comment [Auto mated message] The system which ge nerated this result transmit garrett reference range : <=65. The reference range was not used to interpr et this result as cassie l/abnormal. [facility] HospitalFankbnxWVUSXGUXANZB1094-57-40 09:13:00 Test Item Value Reference Range Interpretation Comments AGAP (test code = AGAP) 11.2 10.0-20.0 [facility] HospitalKuomqdqGIISLWEOOSPS5336-49-35 09:13:00 Test Item Value Reference Range Interpretation Comments eGFR (test code = eGFR) 85 [facility] HospitalBchcnluUUTBLZYMQIEC3456-29-41 09:13:00 Test Item Value Reference Range Interpretation Comments Creatinine Lvl (test code = Creatinine 0.96 0.50-1.40 Lvl) [facility] HospitalXikrvsoIHQRMQGPRBEK2925-69-49 09:13:00 Test Item Value Reference Range Interpretation Comments Potassium Lvl (test code = Potassium 4.2 3.5-5.1 Lvl) [facility] HospitalYrlmlcvDNTBPUMGVPMH2255-53-63 09:13:00 Test Item Value Reference Range Interpretation Comments Sodium Lvl (test code = Sodium Lvl) 141 135-145 [facility] HospitalUbuzpfcJIGPXCBIGIVC1849-87-94 09:13:00 Test Item Value Reference Range Interpretation Comments Chloride Lvl (test code = Chloride Lvl) 110 95-109 [facility] HospitalTattiebZFHEGOHWWYZN6363-31-88 09:13:00 Test Item Value Reference Range Interpretation Comments CO2 (test code = CO2) 24 24-32 [facility] HospitalGsdacinRWQIZMXHNCME7701-07-83 09:13:00 Test Item Value Reference Range Interpretation Comments BUN (test code = BUN) 19 7-22 [facility] HospitalQncifpkTVGHAMDKBAQP7021-94-72 09:13:00 Test Item Value Reference Range Interpretation Comments Glucose Lvl (test code = Glucose Lvl) 86 70-99 [facility] HospitalLvuractNHTYFDTEVLBD4505-15-72 09:13:00 Test Item Value Reference Range Interpretation Comments Calcium Lvl (test code = Calcium Lvl) 9.0 8.5-10.5 [facility]neUafgfvbRYWZPNXYYT2173-95-61 09:13:00 Test Item Value Reference Range Interpretation Comments Microcyte (test code = 1+ *ABN*(08/16/18 Microcyte) 4:13 AM) [facility]neYtxoumjSPHJDVRWXW6569-28-33 09:13:00 Test Item Value Reference Range Interpretation Comments Neutrophils # (test code = Neutrophils 2.7 1.5-8.1 #) [facility] CleburneHnagqrsEBFYNPWFWL3581-83-52 09:13:00 Test Item Value Reference Range Interpretation Comments Lymphocytes # (test code = Lymphocytes 1.3 1.0-5.5 #) [facility] Cle[facility]neJuxytjwGYVIEEQIJV4182-86-69 09:13:00 Test Item Value Reference Range Interpretation Comments Segs (test code = Segs) 56.2 45.0-75.0 [facility] CleburneDznrmmnXQXJXEAYYN4869-51-91 09:13:00 Test Item Value Reference Range Interpretation Comments Monocytes # (test code 0.4 See_Comment [Aut omated message] The = Monocytes #) system which generated this result tra nsmitted reference range : <=0.8. The reference r ondina was not used to int erpret this result as normal/abnormal . [facility] Cle[facility]neYdasfndYBRAYLCEWU4558-62-15 09:13:00 Test Item Value Reference Range Interpretation Comments Lymphocytes (test code = Lymphocytes) 26.8 20.0-40.0 [facility] CleburneHmlffyeICRRWWZEHJ1641-99-13 09:13:00 Test Item Value Reference Range Interpretation Comments Monocytes (test code = Monocytes) 8.7 2.0-12.0 [facility] Cle[facility]neMbevrkfJBIAMGHGDL3401-78-74 09:13:00 Test Item Value Reference Range Interpretation Comments Basophils (test code = 2.1 See_Comment [Aut omated message] The Basophils) system which ge nerated this result tra nsmitted reference range : <=1.0. The reference r ondina was not used to int erpret this result as normal/abnormal . [facility] CleburneFaixvulJPQZHDEKMZ5005-18-41 09:13:00 Test Item Value Reference Range Interpretation Comments Eosinophils (test code = 6.2 See_Comment [A utomated message] The Eosinophils) system which ge nerated this result tra nsmitted reference range : <=4.0. The reference r ondina was not used to int erpret this result as normal/abnormal . [facility] CleburneRnrmsruGLFOQETWSL4020-87-34 09:13:00 Test Item Value Reference Range Interpretation Comments Basophils # (test code 0.1 See_Comment [Aut omated message] The = Basophils #) system which generated this result tra nsmitted reference range : <=0.2. The reference r ondina was not used to int erpret this result as normal/abnormal . [facility] CleburneCvptwcwKVBTGKGDRD1164-27-70 09:13:00 Test Item Value Reference Range Interpretation Comments Eosinophils # (test code 0.3 See_Comment [A utomated message] The = Eosinophils #) system whic h generated this result tra nsmitted reference range : <=0.5. The reference r ondina was not used to int erpret this result as normal/abnormal . [facility] CleburneQiumqgfCZRTEJHGFF3158-89-48 09:13:00 Test Item Value Reference Range Interpretation Comments MCV (test code = MCV) 77.7 80.0-94.0 [facility] CleburneCutkibkWGUFANCBSY1659-62-60 09:13:00 Test Item Value Reference Range Interpretation Comments Hgb (test code = Hgb) 10.5 14.0-18.0 [facility] Cle[facility]neAxgvbzhELNFFSTJQV9539-69-62 09:13:00 Test Item Value Reference Range Interpretation Comments Hct (test code = Hct) 33.2 42.0-54.0 [facility] CleburneWurfgnhVULVYLJXIR0032-80-30 09:13:00 Test Item Value Reference Range Interpretation Comments WBC (test code = WBC) 4.7 3.7-10.4 [facility] CleburneMzamyftOKVNPUBASK4087-33-56 09:13:00 Test Item Value Reference Range Interpretation Comments RBC (test code = RBC) 4.27 4.70-6.10 [facility] CleburneDxllqngLPRHFKQKQR2392-14-50 09:13:00 Test Item Value Reference Range Interpretation Comments MCH (test code = MCH) 24.5 pg 27.0-31.0 [facility] CleburneIsxedzgCYRGEIGYRN4999-39-04 09:13:00 Test Item Value Reference Range Interpretation Comments Platelet (test code = Platelet) 267 133-450 [facility] CleburneLwgrlrnZLOIDFHMHS3243-11-31 09:13:00 Test Item Value Reference Range Interpretation Comments MPV (test code = MPV) 7.8 7.4-10.4 [facility] CleburneArcyltfYGZWFKBTAG2836-36-45 09:13:00 Test Item Value Reference Range Interpretation Comments MCHC (test code = MCHC) 31.5 32.0-36.0 [facility] CleburneLmuptprWZYSHQMJUW5314-05-94 09:13:00 Test Item Value Reference Range Interpretation Comments RDW (test code = RDW) 19.2 11.5-14.5 [facility]2019-06-14 09:13:00 Test Item Value Reference Range Interpretation Comments Bili Indirect Unable to See_Comment [Automated (test code = Bili Calculate message] T he system Indirect) which generated this result transmitted reference range : <=1.0. The reference range was not used to interpret this result as normal/abnormal . [facility]2019-06-14 09:13:00 Test Item Value Reference Range Interpretation Comments Bili Direct (test code no gt See_Comment [Aut omated message] The = Bili Direct) system which generated this result tra nsmitted reference range : <=0.3. The reference r ondina was not used to int erpret this result as cassie l/abnormal. [facility]2019-06-14 09:13:00 Test Item Value Reference Range Interpretation Comments Total Protein (test code = Total 6.9 6.4-8.4 Protein) [facility]2019-06-14 09:13:00 Test Item Value Reference Range Interpretation Comments Albumin Lvl (test code = Albumin Lvl) 3.0 3.5-5.0 [facility]2019-06-14 09:13:00 Test Item Value Reference Range Interpretation Comments Globulin (test code = Globulin) 3.9 2.7-4.2 [facility]2019-06-14 09:13:00 Test Item Value Reference Range Interpretation Comments Alk Phos (test code = Alk Phos) 214 39-136 [facility]2019-06-14 09:13:00 Test Item Value Reference Range Interpretation Comments Bili Total (test code = Bili Total) 0.3 0.2-1.3 [facility]2019-06-14 09:13:00 Test Item Value Reference Range Interpretation Comments AST (test code = AST) 207 See_Comment [Auto mated message] The system which ge nerated this result transmit garrett reference range : <=37. The reference range was not used to interpr et this result as cassie l/abnormal. [facility]2019-06-14 09:13:00 Test Item Value Reference Range Interpretation Comments A/G Ratio (test code = A/G Ratio) 0.8 1 0.7-1.6 [facility]2019-06-14 09:13:00 Test Item Value Reference Range Interpretation Comments ALT (test code = ALT) 148 See_Comment [Auto mated message] The system which ge nerated this result transmit garrett reference range : <=65. The reference range was not used to interpr et this result as cassie l/abnormal. [facility] HospitalOjvlzfzITEXVQUFYLZV6482-71-31 09:13:00 Test Item Value Reference Range Interpretation Comments AGAP (test code = AGAP) 11.2 10.0-20.0 [facility] HospitalMhxqrmsZOQYEASJHTLH3647-76-41 09:13:00 Test Item Value Reference Range Interpretation Comments eGFR (test code = eGFR) 85 [facility] HospitalPirgcwpVIFDAYUKOKYA9519-98-45 09:13:00 Test Item Value Reference Range Interpretation Comments Creatinine Lvl (test code = Creatinine 0.96 0.50-1.40 Lvl) [facility] HospitalUglxmleZVXUXKYRMPLZ8316-92-23 09:13:00 Test Item Value Reference Range Interpretation Comments Potassium Lvl (test code = Potassium 4.2 3.5-5.1 Lvl) [facility] HospitalUnuxarcMLNXVSHVIJFU7757-80-80 09:13:00 Test Item Value Reference Range Interpretation Comments Sodium Lvl (test code = Sodium Lvl) 141 135-145 [facility] HospitalIwqdfnkCQEBSILUVZBY6319-61-17 09:13:00 Test Item Value Reference Range Interpretation Comments Chloride Lvl (test code = Chloride Lvl) 110 95-109 [facility] HospitalEhtkefnMVBUVDWQAFHE4935-79-02 09:13:00 Test Item Value Reference Range Interpretation Comments CO2 (test code = CO2) 24 24-32 [facility] HospitalFcwephwCYBRHVFGSAWI4508-40-54 09:13:00 Test Item Value Reference Range Interpretation Comments BUN (test code = BUN) 19 7-22 [facility] HospitalAlrqmkeMDTSZSNDQEGN3218-68-00 09:13:00 Test Item Value Reference Range Interpretation Comments Glucose Lvl (test code = Glucose Lvl) 86 70-99 [facility] HospitalIoypdnuPYJKJHZYOUFO0061-98-95 09:13:00 Test Item Value Reference Range Interpretation Comments Calcium Lvl (test code = Calcium Lvl) 9.0 8.5-10.5 [facility] Cle[facility]neDwonezdRWNKNRDVEW0411-08-12 09:13:00 Test Item Value Reference Range Interpretation Comments Microcyte (test code = 1+ *ABN*(08/16/18 Microcyte) 4:13 AM) [facility]neVxdgddsUFDUHKJXLS3009-71-97 09:13:00 Test Item Value Reference Range Interpretation Comments Neutrophils # (test code = Neutrophils 2.7 1.5-8.1 #) [facility] Cle[facility]neJgakxneRTFYMRWMQA0093-47-19 09:13:00 Test Item Value Reference Range Interpretation Comments Lymphocytes # (test code = Lymphocytes 1.3 1.0-5.5 #) [facility] CleburneUyriyhwQOPKIJEWAV7266-73-39 09:13:00 Test Item Value Reference Range Interpretation Comments Segs (test code = Segs) 56.2 45.0-75.0 [facility] CleburneObhjuoxAWATBBNQJE9084-69-71 09:13:00 Test Item Value Reference Range Interpretation Comments Monocytes # (test code 0.4 See_Comment [Aut omated message] The = Monocytes #) system which generated this result tra nsmitted reference range : <=0.8. The reference r ondina was not used to int erpret this result as normal/abnormal . [facility] CleburneYmyjorsUVJLGTKGFE0426-21-11 09:13:00 Test Item Value Reference Range Interpretation Comments Lymphocytes (test code = Lymphocytes) 26.8 20.0-40.0 [facility] Cle[facility]neOdlhjxsPGZJJGZHVN6057-16-81 09:13:00 Test Item Value Reference Range Interpretation Comments Monocytes (test code = Monocytes) 8.7 2.0-12.0 [facility] CleburneRsvhvqoBFQJBMXCCU0959-15-28 09:13:00 Test Item Value Reference Range Interpretation Comments Basophils (test code = 2.1 See_Comment [Aut omated message] The Basophils) system which ge nerated this result tra nsmitted reference range : <=1.0. The reference r ondina was not used to int erpret this result as normal/abnormal . [facility] CleburneMciybauXWDEWFDHBZ0173-58-68 09:13:00 Test Item Value Reference Range Interpretation Comments Eosinophils (test code = 6.2 See_Comment [A utomated message] The Eosinophils) system which ge nerated this result tra nsmitted reference range : <=4.0. The reference r ondina was not used to int erpret this result as normal/abnormal . [facility] CleburneLaroqsmZWUVYYSWRH4751-32-75 09:13:00 Test Item Value Reference Range Interpretation Comments Basophils # (test code 0.1 See_Comment [Aut omated message] The = Basophils #) system which generated this result tra nsmitted reference range : <=0.2. The reference r ondina was not used to int erpret this result as normal/abnormal . [facility] CleburneWhfwkbwTCPNOHJSYO9654-87-30 09:13:00 Test Item Value Reference Range Interpretation Comments Eosinophils # (test code 0.3 See_Comment [A utomated message] The = Eosinophils #) system whic h generated this result tra nsmitted reference range : <=0.5. The reference r ondina was not used to int erpret this result as normal/abnormal . [facility] CleburneUxhvrjkFUXIPZPAXV2090-30-29 09:13:00 Test Item Value Reference Range Interpretation Comments MCV (test code = MCV) 77.7 80.0-94.0 [facility] Cle[facility]neAsgedduBIRUULVQRP8451-27-16 09:13:00 Test Item Value Reference Range Interpretation Comments Hgb (test code = Hgb) 10.5 14.0-18.0 [facility] CleburneEifmdtkKVITBBYCFN1399-40-23 09:13:00 Test Item Value Reference Range Interpretation Comments Hct (test code = Hct) 33.2 42.0-54.0 [facility] Cle[facility]neUwnnqznQSWCPMSYFC0807-75-16 09:13:00 Test Item Value Reference Range Interpretation Comments WBC (test code = WBC) 4.7 3.7-10.4 [facility] CleburneGwdkcqrXKRNFILDVN2178-19-96 09:13:00 Test Item Value Reference Range Interpretation Comments RBC (test code = RBC) 4.27 4.70-6.10 [facility] CleburneWptbnqxQWTDBAPMDQ1918-37-53 09:13:00 Test Item Value Reference Range Interpretation Comments MCH (test code = MCH) 24.5 pg 27.0-31.0 [facility] CleburneNjxshorVCAPTEZSTH0137-17-82 09:13:00 Test Item Value Reference Range Interpretation Comments Platelet (test code = Platelet) 267 133-450 [facility] CleburneYencxevHWPGOOHEZH1556-22-16 09:13:00 Test Item Value Reference Range Interpretation Comments MPV (test code = MPV) 7.8 7.4-10.4 [facility] CleburneRcytyjqMNBNRXDBAL7755-70-96 09:13:00 Test Item Value Reference Range Interpretation Comments MCHC (test code = MCHC) 31.5 32.0-36.0 [facility] CleburneVuqtjueKCSIBHIAXR8431-83-67 09:13:00 Test Item Value Reference Range Interpretation Comments RDW (test code = RDW) 19.2 11.5-14.5 [facility]2019-06-14 09:13:00 Test Item Value Reference Range Interpretation Comments Bili Indirect Unable to See_Comment [Automated (test code = Bili Calculate message] T he system Indirect) which generated this result transmitted reference range : <=1.0. The reference range was not used to interpret this result as normal/abnormal . [facility]2019-06-14 09:13:00 Test Item Value Reference Range Interpretation Comments Bili Direct (test code no gt See_Comment [Aut omated message] The = Bili Direct) system which generated this result tra nsmitted reference range : <=0.3. The reference r ondina was not used to int erpret this result as cassie l/abnormal. [facility]2019-06-14 09:13:00 Test Item Value Reference Range Interpretation Comments Total Protein (test code = Total 6.9 6.4-8.4 Protein) [facility]2019-06-14 09:13:00 Test Item Value Reference Range Interpretation Comments Albumin Lvl (test code = Albumin Lvl) 3.0 3.5-5.0 [facility]2019-06-14 09:13:00 Test Item Value Reference Range Interpretation Comments Globulin (test code = Globulin) 3.9 2.7-4.2 [facility]2019-06-14 09:13:00 Test Item Value Reference Range Interpretation Comments Alk Phos (test code = Alk Phos) 214 39-136 [facility]2019-06-14 09:13:00 Test Item Value Reference Range Interpretation Comments Bili Total (test code = Bili Total) 0.3 0.2-1.3 [facility]2019-06-14 09:13:00 Test Item Value Reference Range Interpretation Comments AST (test code = AST) 207 See_Comment [Auto mated message] The system which ge nerated this result transmit garrett reference range : <=37. The reference range was not used to interpr et this result as cassie l/abnormal. [facility]2019-06-14 09:13:00 Test Item Value Reference Range Interpretation Comments A/G Ratio (test code = A/G Ratio) 0.8 1 0.7-1.6 [facility]2019-06-14 09:13:00 Test Item Value Reference Range Interpretation Comments ALT (test code = ALT) 148 See_Comment [Auto mated message] The system which ge nerated this result transmit garrett reference range : <=65. The reference range was not used to interpr et this result as cassie l/abnormal. [facility]CraxuvvBVXWNTFBDYFH1852-52-07 09:13:00 Test Item Value Reference Range Interpretation Comments AGAP (test code = AGAP) 11.2 10.0-20.0 [facility] HospitalMsmstykWBQGAGIMOCDB3971-63-93 09:13:00 Test Item Value Reference Range Interpretation Comments eGFR (test code = eGFR) 85 [facility] HospitalJqqoqhzODMGILZPEFUU6169-59-90 09:13:00 Test Item Value Reference Range Interpretation Comments Creatinine Lvl (test code = Creatinine 0.96 0.50-1.40 Lvl) [facility] HospitalJtkysplIOQWBOQXRYAP1873-20-90 09:13:00 Test Item Value Reference Range Interpretation Comments Potassium Lvl (test code = Potassium 4.2 3.5-5.1 Lvl) [facility] HospitalSebmhelSUVXFVTLIQEW1380-75-81 09:13:00 Test Item Value Reference Range Interpretation Comments Sodium Lvl (test code = Sodium Lvl) 141 135-145 [facility] HospitalPuyssdwNRWDAGSRIIQI2898-77-62 09:13:00 Test Item Value Reference Range Interpretation Comments Chloride Lvl (test code = Chloride Lvl) 110 95-109 [facility] HospitalPlpdadgBHJRPFVUWOZW9335-89-85 09:13:00 Test Item Value Reference Range Interpretation Comments CO2 (test code = CO2) 24 24-32 [facility] HospitalUvkqxtrCCXVUGGVVOMI6743-79-98 09:13:00 Test Item Value Reference Range Interpretation Comments BUN (test code = BUN) 19 7-22 [facility] HospitalEmsaqdnTDDGFZGKOTGQ2254-52-46 09:13:00 Test Item Value Reference Range Interpretation Comments Glucose Lvl (test code = Glucose Lvl) 86 70-99 [facility] HospitalKiwdmwtRLLVDXWJKVOK7568-16-44 09:13:00 Test Item Value Reference Range Interpretation Comments Calcium Lvl (test code = Calcium Lvl) 9.0 8.5-10.5 [facility]NdlngmpCEGSXRHPAU0440-59-20 09:13:00 Test Item Value Reference Range Interpretation Comments Microcyte (test code = 1+ *ABN*(08/16/18 Microcyte) 4:13 AM) [facility]neGvkxjprGEVDDFXUCJ1180-92-39 09:13:00 Test Item Value Reference Range Interpretation Comments Neutrophils # (test code = Neutrophils 2.7 1.5-8.1 #) [facility]neClqfdomDRXNUQQOGA5160-79-81 09:13:00 Test Item Value Reference Range Interpretation Comments Lymphocytes # (test code = Lymphocytes 1.3 1.0-5.5 #) [facility]neSssofarHKMJXHFLXZ5769-00-43 09:13:00 Test Item Value Reference Range Interpretation Comments Segs (test code = Segs) 56.2 45.0-75.0 [facility]neGcsbvwqZDLLOIYPVX3837-88-31 09:13:00 Test Item Value Reference Range Interpretation Comments Monocytes # (test code 0.4 See_Comment [Aut omated message] The = Monocytes #) system which generated this result tra nsmitted reference range : <=0.8. The reference r ondina was not used to int erpret this result as normal/abnormal . [facility]neWrpvitaLZISOBGTAH9317-00-15 09:13:00 Test Item Value Reference Range Interpretation Comments Lymphocytes (test code = Lymphocytes) 26.8 20.0-40.0 [facility]neKobnmnrKQRASWRAGD9541-36-13 09:13:00 Test Item Value Reference Range Interpretation Comments Monocytes (test code = Monocytes) 8.7 2.0-12.0 [facility]neCpwsutaOMOGFCUYSJ1934-71-93 09:13:00 Test Item Value Reference Range Interpretation Comments Basophils (test code = 2.1 See_Comment [Aut omated message] The Basophils) system which ge nerated this result tra nsmitted reference range : <=1.0. The reference r ondina was not used to int erpret this result as normal/abnormal . [facility]neBhrlssjRUPMWKFAKP2312-51-10 09:13:00 Test Item Value Reference Range Interpretation Comments Eosinophils (test code = 6.2 See_Comment [A utomated message] The Eosinophils) system which ge nerated this result tra nsmitted reference range : <=4.0. The reference r ondina was not used to int erpret this result as normal/abnormal . [facility]neQwdgiziNIIDNWAVUK5083-88-65 09:13:00 Test Item Value Reference Range Interpretation Comments Basophils # (test code 0.1 See_Comment [Aut omated message] The = Basophils #) system which generated this result tra nsmitted reference range : <=0.2. The reference r ondina was not used to int erpret this result as normal/abnormal . [facility]neObwxqtuXYKINLZBUP9024-33-96 09:13:00 Test Item Value Reference Range Interpretation Comments Eosinophils # (test code 0.3 See_Comment [A utomated message] The = Eosinophils #) system whic h generated this result tra nsmitted reference range : <=0.5. The reference r ondina was not used to int erpret this result as normal/abnormal . [facility]neFnvzmvcAFBJJEFRMZ9113-62-08 09:13:00 Test Item Value Reference Range Interpretation Comments MCV (test code = MCV) 77.7 80.0-94.0 [facility]neRbriucgDLDLWLDPEY3920-40-34 09:13:00 Test Item Value Reference Range Interpretation Comments Hgb (test code = Hgb) 10.5 14.0-18.0 [facility]neFrhvzimSEPLDWDDRW2853-89-28 09:13:00 Test Item Value Reference Range Interpretation Comments Hct (test code = Hct) 33.2 42.0-54.0 [facility]neFfwrfwaHQXOQPDNII2175-15-52 09:13:00 Test Item Value Reference Range Interpretation Comments WBC (test code = WBC) 4.7 3.7-10.4 [facility]neMzgaedzQNKMLOBQZO3223-07-44 09:13:00 Test Item Value Reference Range Interpretation Comments RBC (test code = RBC) 4.27 4.70-6.10 [facility]neRfzppfmBCZGZZCAYC3370-35-92 09:13:00 Test Item Value Reference Range Interpretation Comments MCH (test code = MCH) 24.5 pg 27.0-31.0 [facility]neAhnjascFGZWQBVWPX7774-53-49 09:13:00 Test Item Value Reference Range Interpretation Comments Platelet (test code = Platelet) 267 133-450 [facility]neXdkxyopUKBNTRJLZK1176-75-76 09:13:00 Test Item Value Reference Range Interpretation Comments MPV (test code = MPV) 7.8 7.4-10.4 [facility]neUgtztpwKJWMKNEZUP0231-18-55 09:13:00 Test Item Value Reference Range Interpretation Comments MCHC (test code = MCHC) 31.5 32.0-36.0 [facility]neCqborcoFCFCJQHDOB6219-45-98 09:13:00 Test Item Value Reference Range Interpretation Comments RDW (test code = RDW) 19.2 11.5-14.5 [facility]2019-06-14 09:13:00 Test Item Value Reference Range Interpretation Comments Bili Indirect (test code Unable to Calculate <=1.0 = Bili Indirect) [facility]2019-06-14 09:13:00 Test Item Value Reference Range Interpretation Comments Bili Direct (test code = Bili Direct) no gt <=0.3 [facility]2019-06-14 09:13:00 Test Item Value Reference Range Interpretation Comments Total Protein (test code = Total 6.9 6.4-8.4 Protein) [facility]2019-06-14 09:13:00 Test Item Value Reference Range Interpretation Comments Albumin Lvl (test code = Albumin Lvl) 3.0 3.5-5.0 [facility]2019-06-14 09:13:00 Test Item Value Reference Range Interpretation Comments Globulin (test code = Globulin) 3.9 2.7-4.2 [facility]2019-06-14 09:13:00 Test Item Value Reference Range Interpretation Comments Alk Phos (test code = Alk Phos) 214 39-136 [facility]2019-06-14 09:13:00 Test Item Value Reference Range Interpretation Comments Bili Total (test code = Bili Total) 0.3 0.2-1.3 [facility]2019-06-14 09:13:00 Test Item Value Reference Range Interpretation Comments AST (test code = AST) 207 <=37 [facility]2019-06-14 09:13:00 Test Item Value Reference Range Interpretation Comments A/G Ratio (test code = A/G Ratio) 0.8 1 0.7-1.6 [facility]2019-06-14 09:13:00 Test Item Value Reference Range Interpretation Comments ALT (test code = ALT) 148 <=65 [facility] HospitalYttirjnRPUHJXYRPTXL1148-87-38 09:13:00 Test Item Value Reference Range Interpretation Comments AGAP (test code = AGAP) 11.2 10.0-20.0 [facility] HospitalDckwgrxWTWDEDGUCAMG1456-02-17 09:13:00 Test Item Value Reference Range Interpretation Comments eGFR (test code = eGFR) 85 [facility] HospitalUfpgedpBBEQWICUBVSG6283-17-63 09:13:00 Test Item Value Reference Range Interpretation Comments Creatinine Lvl (test code = Creatinine 0.96 0.50-1.40 Lvl) [facility] HospitalUlnvfjrOBXRRNTCKCZZ4877-75-34 09:13:00 Test Item Value Reference Range Interpretation Comments Potassium Lvl (test code = Potassium 4.2 3.5-5.1 Lvl) [facility] HospitalDtvvyvzMPYEJEQPVZUP1127-32-87 09:13:00 Test Item Value Reference Range Interpretation Comments Sodium Lvl (test code = Sodium Lvl) 141 135-145 [facility] HospitalBtjwdwsOKEFJDHHEIIW0125-68-94 09:13:00 Test Item Value Reference Range Interpretation Comments Chloride Lvl (test code = Chloride Lvl) 110 95-109 [facility] HospitalLhqfarqLJYODYMDRKGL9717-38-16 09:13:00 Test Item Value Reference Range Interpretation Comments CO2 (test code = CO2) 24 24-32 [facility] HospitalBrmyfztNGDBNIZAIXAY9727-73-69 09:13:00 Test Item Value Reference Range Interpretation Comments BUN (test code = BUN) 19 7-22 [facility] HospitalRyjjyztTUZDAZVPNKVU3945-46-92 09:13:00 Test Item Value Reference Range Interpretation Comments Glucose Lvl (test code = Glucose Lvl) 86 70-99 [facility] HospitalQfajbxfNMGOMASPMUNF2123-64-73 09:13:00 Test Item Value Reference Range Interpretation Comments Calcium Lvl (test code = Calcium Lvl) 9.0 8.5-10.5 [facility]neGymzijuWJIYWRXHMA5747-95-94 09:13:00 Test Item Value Reference Range Interpretation Comments Microcyte (test code = 1+ *ABN*(08/16/18 Microcyte) 4:13 AM) [facility]neOthqhfoFBHOXPDKKF4503-78-39 09:13:00 Test Item Value Reference Range Interpretation Comments Neutrophils # (test code = Neutrophils 2.7 1.5-8.1 #) [facility]neRglmgeaDFOPDPJHEK8675-19-93 09:13:00 Test Item Value Reference Range Interpretation Comments Lymphocytes # (test code = Lymphocytes 1.3 1.0-5.5 #) [facility] Cle[facility]neKaxcwveRFJFGIHFRN6281-77-55 09:13:00 Test Item Value Reference Range Interpretation Comments Segs (test code = Segs) 56.2 45.0-75.0 [facility]neDhmnuexFXNNMFPXNO1969-35-83 09:13:00 Test Item Value Reference Range Interpretation Comments Monocytes # (test code = Monocytes #) 0.4 <=0.8 [facility] Cle[facility]neLlufsecWERIAZLDQB3724-67-37 09:13:00 Test Item Value Reference Range Interpretation Comments Lymphocytes (test code = Lymphocytes) 26.8 20.0-40.0 [facility]neQchhxdaKCWAEVVVQP2248-15-72 09:13:00 Test Item Value Reference Range Interpretation Comments Monocytes (test code = Monocytes) 8.7 2.0-12.0 [facility]neCpcjkeoWUKITWVTFU5909-39-28 09:13:00 Test Item Value Reference Range Interpretation Comments Basophils (test code = Basophils) 2.1 <=1.0 [facility]neDsdcillWHBLTGNGJD8967-54-90 09:13:00 Test Item Value Reference Range Interpretation Comments Eosinophils (test code = Eosinophils) 6.2 <=4.0 [facility]neDvuipmbECFPVBEWSQ1671-22-75 09:13:00 Test Item Value Reference Range Interpretation Comments Basophils # (test code = Basophils #) 0.1 <=0.2 [facility]neCtbnxawFCNDMAUIKU1107-75-38 09:13:00 Test Item Value Reference Range Interpretation Comments Eosinophils # (test code = Eosinophils 0.3 <=0.5 #) [facility]neJhrhhenKXZQYCSOJK2121-91-42 09:13:00 Test Item Value Reference Range Interpretation Comments MCV (test code = MCV) 77.7 80.0-94.0 [facility] CleburneZzdolnuSJOPKTUOKS4517-67-03 09:13:00 Test Item Value Reference Range Interpretation Comments Hgb (test code = Hgb) 10.5 14.0-18.0 [facility]neLpdifrnMNDFHQRUIC2093-83-46 09:13:00 Test Item Value Reference Range Interpretation Comments Hct (test code = Hct) 33.2 42.0-54.0 [facility]neQmvjaoxSBTNCQLOGI1425-72-93 09:13:00 Test Item Value Reference Range Interpretation Comments WBC (test code = WBC) 4.7 3.7-10.4 [facility]neAqemsgiZKDLRPGSIU8044-19-96 09:13:00 Test Item Value Reference Range Interpretation Comments RBC (test code = RBC) 4.27 4.70-6.10 [facility]neMirpmcuRCRZGSZYHR8029-52-04 09:13:00 Test Item Value Reference Range Interpretation Comments MCH (test code = MCH) 24.5 pg 27.0-31.0 [facility]neUuqcekxOSXUSPPQEX2060-98-06 09:13:00 Test Item Value Reference Range Interpretation Comments Platelet (test code = Platelet) 267 133-450 [facility] CleburneBeqxihyBEYJCONRUY9537-69-92 09:13:00 Test Item Value Reference Range Interpretation Comments MPV (test code = MPV) 7.8 7.4-10.4 [facility]neLhxdpbeWBYAZLPGKJ2788-18-47 09:13:00 Test Item Value Reference Range Interpretation Comments MCHC (test code = MCHC) 31.5 32.0-36.0 [facility]nePdrlhslGTWZUKFENJ5873-63-10 09:13:00 Test Item Value Reference Range Interpretation Comments RDW (test code = RDW) 19.2 11.5-14.5 [facility]2019-06-14 09:13:00 Test Item Value Reference Range Interpretation Comments Bili Indirect (test code Unable to Calculate <=1.0 = Bili Indirect) [facility]2019-06-14 09:13:00 Test Item Value Reference Range Interpretation Comments Bili Direct (test code = Bili Direct) no gt <=0.3 [facility]2019-06-14 09:13:00 Test Item Value Reference Range Interpretation Comments Total Protein (test code = Total 6.9 6.4-8.4 Protein) [facility]2019-06-14 09:13:00 Test Item Value Reference Range Interpretation Comments Albumin Lvl (test code = Albumin Lvl) 3.0 3.5-5.0 [facility]2019-06-14 09:13:00 Test Item Value Reference Range Interpretation Comments Globulin (test code = Globulin) 3.9 2.7-4.2 [facility]2019-06-14 09:13:00 Test Item Value Reference Range Interpretation Comments Alk Phos (test code = Alk Phos) 214 39-136 [facility]2019-06-14 09:13:00 Test Item Value Reference Range Interpretation Comments Bili Total (test code = Bili Total) 0.3 0.2-1.3 [facility]2019-06-14 09:13:00 Test Item Value Reference Range Interpretation Comments AST (test code = AST) 207 <=37 [facility]2019-06-14 09:13:00 Test Item Value Reference Range Interpretation Comments A/G Ratio (test code = A/G Ratio) 0.8 1 0.7-1.6 [facility]2019-06-14 09:13:00 Test Item Value Reference Range Interpretation Comments ALT (test code = ALT) 148 <=65 [facility] HospitalOorwpqoTLTINFKACJLD3395-23-19 09:13:00 Test Item Value Reference Range Interpretation Comments AGAP (test code = AGAP) 11.2 10.0-20.0 [facility] HospitalRbwttmpKUCQBIDNJOKK4205-66-70 09:13:00 Test Item Value Reference Range Interpretation Comments eGFR (test code = eGFR) 85 [facility] HospitalHbnxdcoVEKIZDCIJHPO8490-07-20 09:13:00 Test Item Value Reference Range Interpretation Comments Creatinine Lvl (test code = Creatinine 0.96 0.50-1.40 Lvl) [facility] HospitalUxmrooaEBXFJOWVSRDB0464-16-44 09:13:00 Test Item Value Reference Range Interpretation Comments Potassium Lvl (test code = Potassium 4.2 3.5-5.1 Lvl) [facility] HospitalSbkofodVCQNDZBUDOWN4574-56-27 09:13:00 Test Item Value Reference Range Interpretation Comments Sodium Lvl (test code = Sodium Lvl) 141 135-145 [facility] HospitalFmvcidiAQRQKWTIEVQW8380-36-68 09:13:00 Test Item Value Reference Range Interpretation Comments Chloride Lvl (test code = Chloride Lvl) 110 95-109 [facility] HospitalHzlkztsJALMHZMBAHBG3836-75-14 09:13:00 Test Item Value Reference Range Interpretation Comments CO2 (test code = CO2) 24 24-32 [facility] HospitalDwsularYBNDXEBYIPJF3909-88-57 09:13:00 Test Item Value Reference Range Interpretation Comments BUN (test code = BUN) 19 7-22 [facility] HospitalUzcxycwMUGKFFNJXDKR6038-49-19 09:13:00 Test Item Value Reference Range Interpretation Comments Glucose Lvl (test code = Glucose Lvl) 86 70-99 [facility] HospitalFewsjzxQRCXXGCRILYZ7328-75-70 09:13:00 Test Item Value Reference Range Interpretation Comments Calcium Lvl (test code = Calcium Lvl) 9.0 8.5-10.5 [facility]neSfcbwsgZVVARIPEEH5556-38-29 09:13:00 Test Item Value Reference Range Interpretation Comments Microcyte (test code = 1+ *ABN*(08/16/18 Microcyte) 4:13 AM) [facility]neDezudhnZNRITBEHPG2783-89-40 09:13:00 Test Item Value Reference Range Interpretation Comments Neutrophils # (test code = Neutrophils 2.7 1.5-8.1 #) [facility]neRufxxwzOZYPLVLTKR4922-52-28 09:13:00 Test Item Value Reference Range Interpretation Comments Lymphocytes # (test code = Lymphocytes 1.3 1.0-5.5 #) [facility]neNjdfphlTVIYZZTIDR7900-85-00 09:13:00 Test Item Value Reference Range Interpretation Comments Segs (test code = Segs) 56.2 45.0-75.0 [facility] Cle[facility]neDaybhrsTGOARDPHKE0871-82-33 09:13:00 Test Item Value Reference Range Interpretation Comments Monocytes # (test code = Monocytes #) 0.4 <=0.8 [facility]neHykteuhYALXQDBKEO9742-31-16 09:13:00 Test Item Value Reference Range Interpretation Comments Lymphocytes (test code = Lymphocytes) 26.8 20.0-40.0 [facility] Cle[facility]neZffsjtrWZXLAGCSEV3763-33-61 09:13:00 Test Item Value Reference Range Interpretation Comments Monocytes (test code = Monocytes) 8.7 2.0-12.0 [facility]nePzbsyfkDOAELOIGWT1131-92-16 09:13:00 Test Item Value Reference Range Interpretation Comments Basophils (test code = Basophils) 2.1 <=1.0 [facility]neUqkqxcpVYKTKDYHBF2916-70-47 09:13:00 Test Item Value Reference Range Interpretation Comments Eosinophils (test code = Eosinophils) 6.2 <=4.0 [facility] Cle[facility]neDledzwoJBLAKNFJAL8628-17-82 09:13:00 Test Item Value Reference Range Interpretation Comments Basophils # (test code = Basophils #) 0.1 <=0.2 [facility] Cle[facility]neWqvqsokTCVCIBAAZG3551-10-79 09:13:00 Test Item Value Reference Range Interpretation Comments Eosinophils # (test code = Eosinophils 0.3 <=0.5 #) [facility] CleburneTbrlockLVUPBFGRMP2487-49-78 09:13:00 Test Item Value Reference Range Interpretation Comments MCV (test code = MCV) 77.7 80.0-94.0 [facility] Cle[facility]neWjiefbgOKMBONSTLP5574-02-04 09:13:00 Test Item Value Reference Range Interpretation Comments Hgb (test code = Hgb) 10.5 14.0-18.0 [facility]neYepdglnFQULZDOYOS2526-64-81 09:13:00 Test Item Value Reference Range Interpretation Comments Hct (test code = Hct) 33.2 42.0-54.0 [facility]neHhajcdxCEGEFPPWGW3880-81-11 09:13:00 Test Item Value Reference Range Interpretation Comments WBC (test code = WBC) 4.7 3.7-10.4 [facility]nePaksqcjBGNPYLPORL5106-86-27 09:13:00 Test Item Value Reference Range Interpretation Comments RBC (test code = RBC) 4.27 4.70-6.10 [facility]neYvwlqugEFDHHXVBUH5402-45-93 09:13:00 Test Item Value Reference Range Interpretation Comments MCH (test code = MCH) 24.5 pg 27.0-31.0 [facility]GdwwzddAYXVOWFNSH2558-76-23 09:13:00 Test Item Value Reference Range Interpretation Comments Platelet (test code = Platelet) 267 133-450 [facility] DallasBlihhpyDRZPZZWJCH4199-86-85 09:13:00 Test Item Value Reference Range Interpretation Comments MPV (test code = MPV) 7.8 7.4-10.4 [facility] DallasJtouzftZXJJXYKHCO9111-56-79 09:13:00 Test Item Value Reference Range Interpretation Comments MCHC (test code = MCHC) 31.5 32.0-36.0 [facility] DallasLfhsnvfRKYCLSPQMC7598-71-69 09:13:00 Test Item Value Reference Range Interpretation Comments RDW (test code = RDW) 19.2 11.5-14.5 [facility] DallasOgeqbfnUUUTSQRQBM2474-33-15 02:46:00 Test Item Value Reference Range Interpretation Comments [facility] HIV 4th GEN (test Negative *NA*(08/15/18 code = CDC HIV 4th 9:46 PM) GEN) [facility] DallasGimgfwnPPKUIFEVEC9031-20-18 02:46:00 Test Item Value Reference Range Interpretation Comments [facility] HIV 4th GEN (test Negative *NA*(08/15/18 code = CDC HIV 4th 9:46 PM) GEN) [facility] DallasYaftswdWYRNSUZJAO0135-08-13 02:46:00 Test Item Value Reference Range Interpretation Comments CDC HIV 4th GEN (test Negative *NA*(08/15/18 code = CDC HIV 4th 9:46 PM) GEN) [facility] JqdwbeiLTHNZNOEVZ3838-38-14 02:46:00 Test Item Value Reference Range Interpretation Comments CDC HIV 4th GEN (test Negative *NA*(08/15/18 code = CDC HIV 4th 9:46 PM) GEN) [facility] EeuyqyfUAYRYORMWJ7846-11-53 02:46:00 Test Item Value Reference Range Interpretation Comments CDC HIV 4th GEN (test Negative *NA*(08/15/18 code = CDC HIV 4th 9:46 PM) GEN) [facility][id number] 02:46:00 Test Item Value Reference Range Interpretation Comments [facility] HIV 4th GEN (test Negative *NA*(08/15/18 code = CDC HIV 4th 9:46 PM) GEN) [facility] [id number] 02:44:00 Test Item Value Reference Range Interpretation Comments ABO/Rh (test code = ABO/Rh) [facility] [id number] 02:44:00 Test Item Value Reference Range Interpretation Comments Antibody Scrn (test Negative (08/15/18 9:44 code = Antibody Scrn) PM) [facility] [id number] 02:44:00 Test Item Value Reference Range Interpretation Comments ABO/Rh (test code = ABO/Rh) A [facility] [id number] 02:44:00 Test Item Value Reference Range Interpretation Comments Antibody Scrn (test Negative (08/15/18 9:44 code = Antibody Scrn) PM) [facility] [id number] 02:44:00 Test Item Value Reference Range Interpretation Comments ABO/Rh (test code = ABO/Rh) A [facility] [id number] 02:44:00 Test Item Value Reference Range Interpretation Comments Antibody Scrn (test Negative (08/15/18 9:44 code = Antibody Scrn) PM) [facility] [id number] 02:44:00 Test Item Value Reference Range Interpretation Comments ABO/Rh (test code = ABO/Rh) [facility] [id number] 02:44:00 Test Item Value Reference Range Interpretation Comments Antibody Scrn (test Negative (08/15/18 9:44 code = Antibody Scrn) PM) [facility] [id number] 02:44:00 Test Item Value Reference Range Interpretation Comments ABO/Rh (test code = ABO/Rh) A [facility] [id number] 02:44:00 Test Item Value Reference Range Interpretation Comments Antibody Scrn (test Negative (08/15/18 9:44 code = Antibody Scrn) PM) [facility] [id number] 02:44:00 Test Item Value Reference Range Interpretation Comments ABO/Rh (test code = ABO/Rh) [facility] [id number] 02:44:00 Test Item Value Reference Range Interpretation Comments Antibody Scrn (test Negative (08/15/18 9:44 code = Antibody Scrn) PM) [facility] [id number] 02:42:00 Test Item Value Reference Range Interpretation Comments Troponin-I (test code no gt See_Comment [Auto mated message] The = Troponin-I) system which g enerated this result transmit garrett reference range : <=0.40. The reference r ondina was not used to interpr et this result as cassie l/abnormal. [facility]2019-06-14 02:42:00 Test Item Value Reference Range Interpretation Comments Lipase Lvl (test code = Lipase Lvl) 165 73-393 [facility]2019-06-14 02:42:00 Test Item Value Reference Range Interpretation Comments Bili Indirect (test 0.2 See_Comment [Automa garrett message] The code = Bili Indirect) system which generated this result tra nsmitted reference range : <=1.0. The reference r ondina was not used to int erpret this result as normal/abnormal . [facility]2019-06-14 02:42:00 Test Item Value Reference Range Interpretation Comments Bili Total (test code = Bili Total) 0.3 0.2-1.3 [facility]2019-06-14 02:42:00 Test Item Value Reference Range Interpretation Comments Alk Phos (test code = Alk Phos) 203 39-136 [facility]2019-06-14 02:42:00 Test Item Value Reference Range Interpretation Comments AST (test code = AST) 194 See_Comment [Auto mated message] The system which ge nerated this result transmit garrett reference range : <=37. The reference range was not used to interpr et this result as cassie l/abnormal. [facility]2019-06-14 02:42:00 Test Item Value Reference Range Interpretation Comments ALT (test code = ALT) 109 See_Comment [Auto mated message] The system which ge nerated this result transmit garrett reference range : <=65. The reference range was not used to interpr et this result as cassie l/abnormal. [facility]2019-06-14 02:42:00 Test Item Value Reference Range Interpretation Comments Bili Direct (test code 0.1 See_Comment [Aut omated message] The = Bili Direct) system which generated this result tra nsmitted reference range : <=0.3. The reference r ondina was not used to int erpret this result as cassie l/abnormal. [facility]2019-06-14 02:42:00 Test Item Value Reference Range Interpretation Comments Albumin Lvl (test code = Albumin Lvl) 3.0 3.5-5.0 [facility]2019-06-14 02:42:00 Test Item Value Reference Range Interpretation Comments Total Protein (test code = Total 6.9 6.4-8.4 Protein) [facility]2019-06-14 02:42:00 Test Item Value Reference Range Interpretation Comments Globulin (test code = Globulin) 3.9 2.7-4.2 [facility]2019-06-14 02:42:00 Test Item Value Reference Range Interpretation Comments A/G Ratio (test code = A/G Ratio) 0.8 1 0.7-1.6 [facility]2019-06-14 02:42:00 Test Item Value Reference Range Interpretation Comments eGFR (test code = eGFR) 68 [facility]2019-06-14 02:42:00 Test Item Value Reference Range Interpretation Comments Potassium Lvl (test code = Potassium 3.9 3.5-5.1 Lvl) [facility]2019-06-14 02:42:00 Test Item Value Reference Range Interpretation Comments Sodium Lvl (test code = Sodium Lvl) 139 135-145 [facility]2019-06-14 02:42:00 Test Item Value Reference Range Interpretation Comments Calcium Lvl (test code = Calcium Lvl) 8.6 8.5-10.5 [facility]2019-06-14 02:42:00 Test Item Value Reference Range Interpretation Comments CO2 (test code = CO2) 25 24-32 [facility]2019-06-14 02:42:00 Test Item Value Reference Range Interpretation Comments Chloride Lvl (test code = Chloride Lvl) 105 95-109 [facility]2019-06-14 02:42:00 Test Item Value Reference Range Interpretation Comments Creatinine Lvl (test code = Creatinine 1.16 0.50-1.40 Lvl) [facility]2019-06-14 02:42:00 Test Item Value Reference Range Interpretation Comments BUN (test code = BUN) 21 7-22 [facility]2019-06-14 02:42:00 Test Item Value Reference Range Interpretation Comments Glucose Lvl (test code = Glucose Lvl) 88 70-99 [facility]2019-06-14 02:42:00 Test Item Value Reference Range Interpretation Comments AGAP (test code = AGAP) 12.9 10.0-20.0 [facility][id number] 02:42:00 Test Item Value Reference Range Interpretation Comments RDW (test code = RDW) 19.1 11.5-14.5 [facility]neQejtarcADEBJBEXCI9531-04-56 02:42:00 Test Item Value Reference Range Interpretation Comments MPV (test code = MPV) 8.0 7.4-10.4 [facility]neGrxdzqtMRVJHIDZHH8554-86-30 02:42:00 Test Item Value Reference Range Interpretation Comments Platelet (test code = Platelet) 259 133-450 [facility] CleburneGnitddmHXVWJMYFTG7114-06-27 02:42:00 Test Item Value Reference Range Interpretation Comments MCHC (test code = MCHC) 31.2 32.0-36.0 [facility] Cle[facility]neJvwocwjNGJAGOYTMN9620-48-96 02:42:00 Test Item Value Reference Range Interpretation Comments Hct (test code = Hct) 33.3 42.0-54.0 [facility] CleburneLmqcsioBPYQNMCTYV7649-28-92 02:42:00 Test Item Value Reference Range Interpretation Comments Hgb (test code = Hgb) 10.4 14.0-18.0 [facility] CleburneZdysomcQMERZRNAEU7334-32-65 02:42:00 Test Item Value Reference Range Interpretation Comments RBC (test code = RBC) 4.26 4.70-6.10 [facility] Cle[facility]neGpxjgkwYNTHUUHKPC6400-15-09 02:42:00 Test Item Value Reference Range Interpretation Comments MCV (test code = MCV) 78.2 80.0-94.0 [facility] Cle[facility]neScsnwsxWFCPXAKLTE6514-51-06 02:42:00 Test Item Value Reference Range Interpretation Comments MCH (test code = MCH) 24.4 pg 27.0-31.0 [facility] Cle[facility]neKclbxxuRZKNXCBBAI0172-89-66 02:42:00 Test Item Value Reference Range Interpretation Comments WBC (test code = WBC) 6.0 3.7-10.4 [facility] Cle[facility]neWnwzlunYANGZWMIAY8842-20-92 02:42:00 Test Item Value Reference Range Interpretation Comments Neutrophils # (test code = Neutrophils 4.0 1.5-8.1 #) [facility] Cle[facility]neKrdrvqeVVIZGLRNYQ3359-65-45 02:42:00 Test Item Value Reference Range Interpretation Comments Lymphocytes # (test code = Lymphocytes 1.3 1.0-5.5 #) [facility] CleburneZblueidCTTZKPMRUR4547-80-03 02:42:00 Test Item Value Reference Range Interpretation Comments Basophils (test code = 1.4 See_Comment [Aut omated message] The Basophils) system which ge nerated this result tra nsmitted reference range : <=1.0. The reference r ondina was not used to int erpret this result as normal/abnormal . [facility] CleburneOqjqodmFWVOOAYUKQ3899-12-58 02:42:00 Test Item Value Reference Range Interpretation Comments Eosinophils (test code = 3.5 See_Comment [A utomated message] The Eosinophils) system which ge nerated this result tra nsmitted reference range : <=4.0. The reference r ondina was not used to int erpret this result as normal/abnormal . [facility] Cle[facility]neZnzrjomLBFYWMCZUL0638-90-18 02:42:00 Test Item Value Reference Range Interpretation Comments Lymphocytes (test code = Lymphocytes) 21.4 20.0-40.0 [facility] CleburneAypoxgtNCPWXPFIXN3770-62-90 02:42:00 Test Item Value Reference Range Interpretation Comments Monocytes (test code = Monocytes) 7.3 2.0-12.0 [facility] CleburneVonlegkYGTYMENJAR3121-14-84 02:42:00 Test Item Value Reference Range Interpretation Comments Basophils # (test code 0.1 See_Comment [Aut omated message] The = Basophils #) system which generated this result tra nsmitted reference range : <=0.2. The reference r ondina was not used to int erpret this result as normal/abnormal . [facility] CleburneRyjkoysBQKUSMQZHY5368-95-29 02:42:00 Test Item Value Reference Range Interpretation Comments Microcyte (test code = 1+ *ABN*(08/15/18 Microcyte) 9:42 PM) [facility] CleburneGfhoqurAXRIRGAXPN0970-32-17 02:42:00 Test Item Value Reference Range Interpretation Comments Monocytes # (test code 0.4 See_Comment [Aut omated message] The = Monocytes #) system which generated this result tra nsmitted reference range : <=0.8. The reference r ondina was not used to int erpret this result as normal/abnormal . [facility] HospitalVuxdtzwAKAFPXHVBR0918-45-52 02:42:00 Test Item Value Reference Range Interpretation Comments Eosinophils # (test code 0.2 See_Comment [A utomated message] The = Eosinophils #) system whic h generated this result tra nsmitted reference range : <=0.5. The reference r ondina was not used to int erpret this result as normal/abnormal . [facility] HospitalJfcbdtvIACLIILGJW6831-99-74 02:42:00 Test Item Value Reference Range Interpretation Comments Segs (test code = Segs) 66.4 45.0-75.0 [facility]neWvtmrpdWSTUILNJOE1044-98-57 02:42:00 Test Item Value Reference Range Interpretation Comments PT (test code = PT) 13.5 s 12.0-14.7 [facility] HospitalQntokucGWYTNBVMJZ3586-60-77 02:42:00 Test Item Value Reference Range Interpretation Comments PTT (test code = PTT) 28.8 s 22.9-35.8 [facility] HospitalRcvxatyOLRNNYQRLR9120-36-50 02:42:00 Test Item Value Reference Range Interpretation Comments INR (test code = INR) 1.05 1 0.85-1.17 [facility] [id number] 02:42:00 Test Item Value Reference Range Interpretation Comments Troponin-I (test code no gt See_Comment [Auto mated message] The = Troponin-I) system which g enerated this result transmit garrett reference range : <=0.40. The reference r ondina was not used to interpr et this result as cassie l/abnormal. [facility] UCXAU7683-04-04 02:42:00 Test Item Value Reference Range Interpretation Comments Lipase Lvl (test code = Lipase Lvl) 165 73-393 [facility] POEHL5215-69-55 02:42:00 Test Item Value Reference Range Interpretation Comments Bili Indirect (test 0.2 See_Comment [Automa garrett message] The code = Bili Indirect) system which generated this result tra nsmitted reference range : <=1.0. The reference r ondina was not used to int erpret this result as normal/abnormal . [facility] [id number] 02:42:00 Test Item Value Reference Range Interpretation Comments Bili Total (test code = Bili Total) 0.3 0.2-1.3 [facility]2019-06-14 02:42:00 Test Item Value Reference Range Interpretation Comments Alk Phos (test code = Alk Phos) 203 39-136 [facility]2019-06-14 02:42:00 Test Item Value Reference Range Interpretation Comments AST (test code = AST) 194 See_Comment [Auto mated message] The system which ge nerated this result transmit garrett reference range : <=37. The reference range was not used to interpr et this result as cassie l/abnormal. [facility]2019-06-14 02:42:00 Test Item Value Reference Range Interpretation Comments ALT (test code = ALT) 109 See_Comment [Auto mated message] The system which ge nerated this result transmit garrett reference range : <=65. The reference range was not used to interpr et this result as cassie l/abnormal. [facility]2019-06-14 02:42:00 Test Item Value Reference Range Interpretation Comments Bili Direct (test code 0.1 See_Comment [Aut omated message] The = Bili Direct) system which generated this result tra nsmitted reference range : <=0.3. The reference r ondina was not used to int erpret this result as cassie l/abnormal. [facility]2019-06-14 02:42:00 Test Item Value Reference Range Interpretation Comments Albumin Lvl (test code = Albumin Lvl) 3.0 3.5-5.0 [facility]2019-06-14 02:42:00 Test Item Value Reference Range Interpretation Comments Total Protein (test code = Total 6.9 6.4-8.4 Protein) [facility]2019-06-14 02:42:00 Test Item Value Reference Range Interpretation Comments Globulin (test code = Globulin) 3.9 2.7-4.2 [facility]2019-06-14 02:42:00 Test Item Value Reference Range Interpretation Comments A/G Ratio (test code = A/G Ratio) 0.8 1 0.7-1.6 [facility]2019-06-14 02:42:00 Test Item Value Reference Range Interpretation Comments eGFR (test code = eGFR) 68 [facility]2019-06-14 02:42:00 Test Item Value Reference Range Interpretation Comments Potassium Lvl (test code = Potassium 3.9 3.5-5.1 Lvl) [facility]2019-06-14 02:42:00 Test Item Value Reference Range Interpretation Comments Sodium Lvl (test code = Sodium Lvl) 139 135-145 [facility]2019-06-14 02:42:00 Test Item Value Reference Range Interpretation Comments Calcium Lvl (test code = Calcium Lvl) 8.6 8.5-10.5 [facility]2019-06-14 02:42:00 Test Item Value Reference Range Interpretation Comments CO2 (test code = CO2) 25 24-32 [facility]2019-06-14 02:42:00 Test Item Value Reference Range Interpretation Comments Chloride Lvl (test code = Chloride Lvl) 105 95-109 [facility]2019-06-14 02:42:00 Test Item Value Reference Range Interpretation Comments Creatinine Lvl (test code = Creatinine 1.16 0.50-1.40 Lvl) [facility]2019-06-14 02:42:00 Test Item Value Reference Range Interpretation Comments BUN (test code = BUN) 21 7-22 [facility]2019-06-14 02:42:00 Test Item Value Reference Range Interpretation Comments Glucose Lvl (test code = Glucose Lvl) 88 70-99 [facility]2019-06-14 02:42:00 Test Item Value Reference Range Interpretation Comments AGAP (test code = AGAP) 12.9 10.0-20.0 [facility] CleburneGbblgzmWJDDSRXFGV9313-48-69 02:42:00 Test Item Value Reference Range Interpretation Comments RDW (test code = RDW) 19.1 11.5-14.5 [facility] CleburneYyxeukbXUDLOAGLPA0494-51-56 02:42:00 Test Item Value Reference Range Interpretation Comments MPV (test code = MPV) 8.0 7.4-10.4 [facility] CleburneXqafvxqIREOZEULFK1636-25-50 02:42:00 Test Item Value Reference Range Interpretation Comments Platelet (test code = Platelet) 259 133-450 [facility] CleburneQiywtqdDFNLIXNNZS1519-25-97 02:42:00 Test Item Value Reference Range Interpretation Comments MCHC (test code = MCHC) 31.2 32.0-36.0 [facility] CleburneTylgpnjXPKXBQNDBH1991-91-93 02:42:00 Test Item Value Reference Range Interpretation Comments Hct (test code = Hct) 33.3 42.0-54.0 [facility] CleburneOehqqrqJVSGMEZPDH8079-10-62 02:42:00 Test Item Value Reference Range Interpretation Comments Hgb (test code = Hgb) 10.4 14.0-18.0 [facility] CleburneMwurxsrUAYJLZXZJJ1776-54-72 02:42:00 Test Item Value Reference Range Interpretation Comments RBC (test code = RBC) 4.26 4.70-6.10 [facility] CleburneYlqpbljLSOETZRVRS9197-67-32 02:42:00 Test Item Value Reference Range Interpretation Comments MCV (test code = MCV) 78.2 80.0-94.0 [facility] CleburneEhjimtnLZYNBTVEPI7619-85-20 02:42:00 Test Item Value Reference Range Interpretation Comments MCH (test code = MCH) 24.4 pg 27.0-31.0 [facility] CleburneTejbtunMWKVAGXAQW2819-49-28 02:42:00 Test Item Value Reference Range Interpretation Comments WBC (test code = WBC) 6.0 3.7-10.4 [facility] CleburneLxpndamPLRUBESMOF8523-18-71 02:42:00 Test Item Value Reference Range Interpretation Comments Neutrophils # (test code = Neutrophils 4.0 1.5-8.1 #) [facility] Cle[facility]neIlakxrrBNDNRWQCGT2801-62-59 02:42:00 Test Item Value Reference Range Interpretation Comments Lymphocytes # (test code = Lymphocytes 1.3 1.0-5.5 #) [facility] CleburneEtsujslZHDGLDYUVT0829-01-29 02:42:00 Test Item Value Reference Range Interpretation Comments Basophils (test code = 1.4 See_Comment [Aut omated message] The Basophils) system which ge nerated this result tra nsmitted reference range : <=1.0. The reference r ondina was not used to int erpret this result as normal/abnormal . [facility] CleburneWaiofblNLCLOMVDBV5856-24-85 02:42:00 Test Item Value Reference Range Interpretation Comments Eosinophils (test code = 3.5 See_Comment [A utomated message] The Eosinophils) system which ge nerated this result tra nsmitted reference range : <=4.0. The reference r ondina was not used to int erpret this result as normal/abnormal . [facility] CleburneKoqaqcsPYYPQFWFXS7917-21-43 02:42:00 Test Item Value Reference Range Interpretation Comments Lymphocytes (test code = Lymphocytes) 21.4 20.0-40.0 [facility] CleburneEuthgazMNQPNVVSJQ4012-07-14 02:42:00 Test Item Value Reference Range Interpretation Comments Monocytes (test code = Monocytes) 7.3 2.0-12.0 [facility] CleburneKmotrqpAHRREGZBAH3974-72-34 02:42:00 Test Item Value Reference Range Interpretation Comments Basophils # (test code 0.1 See_Comment [Aut omated message] The = Basophils #) system which generated this result tra nsmitted reference range : <=0.2. The reference r ondina was not used to int erpret this result as normal/abnormal . [facility] CleburneEbmsvsrSDEJFYVCRT1365-29-70 02:42:00 Test Item Value Reference Range Interpretation Comments Microcyte (test code = 1+ *ABN*(08/15/18 Microcyte) 9:42 PM) [facility] Cle[facility]neXikuzwtXFBKYDXPGX0701-36-06 02:42:00 Test Item Value Reference Range Interpretation Comments Monocytes # (test code 0.4 See_Comment [Aut omated message] The = Monocytes #) system which generated this result tra nsmitted reference range : <=0.8. The reference r ondina was not used to int erpret this result as normal/abnormal . [facility] CleburneWcfjmmmZHUBOKGLYL9638-52-76 02:42:00 Test Item Value Reference Range Interpretation Comments Eosinophils # (test code 0.2 See_Comment [A utomated message] The = Eosinophils #) system wh h generated this result tra nsmitted reference range : <=0.5. The reference r ondina was not used to int erpret this result as normal/abnormal . [facility] CleburneMnvlbleGLTGDRBVUU0423-14-00 02:42:00 Test Item Value Reference Range Interpretation Comments Segs (test code = Segs) 66.4 45.0-75.0 [facility] CleburneLqjpowrLBGTYGTBJG2012-61-53 02:42:00 Test Item Value Reference Range Interpretation Comments PT (test code = PT) 13.5 s 12.0-14.7 [facility] CleburneAtoqovlNPXKFLRFCN5282-29-61 02:42:00 Test Item Value Reference Range Interpretation Comments PTT (test code = PTT) 28.8 s 22.9-35.8 [facility] TexasYevxpfvKHUQFPLMSQ1147-34-67 02:42:00 Test Item Value Reference Range Interpretation Comments INR (test code = INR) 1.05 1 0.85-1.17 [facility] [id number] 02:42:00 Test Item Value Reference Range Interpretation Comments Troponin-I (test code no gt See_Comment [Auto mated message] The = Troponin-I) system which g enerated this result transmit garrett reference range : <=0.40. The reference r ondina was not used to interpr et this result as cassie l/abnormal. [facility]2019-06-14 02:42:00 Test Item Value Reference Range Interpretation Comments Lipase Lvl (test code = Lipase Lvl) 165 73-393 [facility]2019-06-14 02:42:00 Test Item Value Reference Range Interpretation Comments Bili Indirect (test 0.2 See_Comment [Automa garrett message] The code = Bili Indirect) system which generated this result tra nsmitted reference range : <=1.0. The reference r ondina was not used to int erpret this result as normal/abnormal . [facility]2019-06-14 02:42:00 Test Item Value Reference Range Interpretation Comments Bili Total (test code = Bili Total) 0.3 0.2-1.3 [facility]2019-06-14 02:42:00 Test Item Value Reference Range Interpretation Comments Alk Phos (test code = Alk Phos) 203 39-136 [facility]2019-06-14 02:42:00 Test Item Value Reference Range Interpretation Comments AST (test code = AST) 194 See_Comment [Auto mated message] The system which ge nerated this result transmit garrett reference range : <=37. The reference range was not used to interpr et this result as cassie l/abnormal. [facility]2019-06-14 02:42:00 Test Item Value Reference Range Interpretation Comments ALT (test code = ALT) 109 See_Comment [Auto mated message] The system which ge nerated this result transmit garrett reference range : <=65. The reference range was not used to interpr et this result as cassie l/abnormal. [facility]2019-06-14 02:42:00 Test Item Value Reference Range Interpretation Comments Bili Direct (test code 0.1 See_Comment [Aut omated message] The = Bili Direct) system which generated this result tra nsmitted reference range : <=0.3. The reference r ondina was not used to int erpret this result as cassie l/abnormal. [facility]2019-06-14 02:42:00 Test Item Value Reference Range Interpretation Comments Albumin Lvl (test code = Albumin Lvl) 3.0 3.5-5.0 [facility]2019-06-14 02:42:00 Test Item Value Reference Range Interpretation Comments Total Protein (test code = Total 6.9 6.4-8.4 Protein) [facility]2019-06-14 02:42:00 Test Item Value Reference Range Interpretation Comments Globulin (test code = Globulin) 3.9 2.7-4.2 [facility]2019-06-14 02:42:00 Test Item Value Reference Range Interpretation Comments A/G Ratio (test code = A/G Ratio) 0.8 1 0.7-1.6 [place] [id number] 02:42:00 Test Item Value Reference Range Interpretation Comments eGFR (test code = eGFR) 68 [facility]2019-06-14 02:42:00 Test Item Value Reference Range Interpretation Comments Potassium Lvl (test code = Potassium 3.9 3.5-5.1 Lvl) [facility]2019-06-14 02:42:00 Test Item Value Reference Range Interpretation Comments Sodium Lvl (test code = Sodium Lvl) 139 135-145 [facility]2019-06-14 02:42:00 Test Item Value Reference Range Interpretation Comments Calcium Lvl (test code = Calcium Lvl) 8.6 8.5-10.5 [facility]2019-06-14 02:42:00 Test Item Value Reference Range Interpretation Comments CO2 (test code = CO2) 25 24-32 [facility]2019-06-14 02:42:00 Test Item Value Reference Range Interpretation Comments Chloride Lvl (test code = Chloride Lvl) 105 95-109 [facility]2019-06-14 02:42:00 Test Item Value Reference Range Interpretation Comments Creatinine Lvl (test code = Creatinine 1.16 0.50-1.40 Lvl) [facility]2019-06-14 02:42:00 Test Item Value Reference Range Interpretation Comments BUN (test code = BUN) 21 7-22 [facility]2019-06-14 02:42:00 Test Item Value Reference Range Interpretation Comments Glucose Lvl (test code = Glucose Lvl) 88 70-99 [facility]2019-06-14 02:42:00 Test Item Value Reference Range Interpretation Comments AGAP (test code = AGAP) 12.9 10.0-20.0 [facility]AickpmgWXDFHQSNBQ0850-32-89 02:42:00 Test Item Value Reference Range Interpretation Comments RDW (test code = RDW) 19.1 11.5-14.5 [facility]neVaibkvtWWXCUPTUSV0335-69-23 02:42:00 Test Item Value Reference Range Interpretation Comments MPV (test code = MPV) 8.0 7.4-10.4 [facility]neWnhegdjVXABJBRFAW5087-31-32 02:42:00 Test Item Value Reference Range Interpretation Comments Platelet (test code = Platelet) 259 133-450 [facility]neMilvpekGISOLPXNGD9161-88-78 02:42:00 Test Item Value Reference Range Interpretation Comments MCHC (test code = MCHC) 31.2 32.0-36.0 [facility]neJactqzcTZUAYNGSLZ1093-41-73 02:42:00 Test Item Value Reference Range Interpretation Comments Hct (test code = Hct) 33.3 42.0-54.0 [facility]neMqlhbehNJMMZHORFC4127-40-17 02:42:00 Test Item Value Reference Range Interpretation Comments Hgb (test code = Hgb) 10.4 14.0-18.0 [facility]neVsfxmcnRURWJODGKJ1292-18-40 02:42:00 Test Item Value Reference Range Interpretation Comments RBC (test code = RBC) 4.26 4.70-6.10 [facility]neFimqnpvFNBXZYBTNP7436-35-52 02:42:00 Test Item Value Reference Range Interpretation Comments MCV (test code = MCV) 78.2 80.0-94.0 [facility]neAdjbmefUNGXIBLRFY5466-07-00 02:42:00 Test Item Value Reference Range Interpretation Comments MCH (test code = MCH) 24.4 pg 27.0-31.0 [place] 085099-06-14 02:42:00 Test Item Value Reference Range Interpretation Comments WBC (test code = WBC) 6.0 3.7-10.4 [facility]neSkxvnftIMPYBXHZPN2661-58-21 02:42:00 Test Item Value Reference Range Interpretation Comments Neutrophils # (test code = Neutrophils 4.0 1.5-8.1 #) [facility]neOrqswjyGJEMXZKBIF6557-69-21 02:42:00 Test Item Value Reference Range Interpretation Comments Lymphocytes # (test code = Lymphocytes 1.3 1.0-5.5 #) [facility]neVbjaugyFJMWAHVUZV4028-73-30 02:42:00 Test Item Value Reference Range Interpretation Comments Basophils (test code = 1.4 See_Comment [Aut omated message] The Basophils) system which ge nerated this result tra nsmitted reference range : <=1.0. The reference r ondina was not used to int erpret this result as normal/abnormal . [facility]neByiyizjGDZQXBCTOZ1511-09-38 02:42:00 Test Item Value Reference Range Interpretation Comments Eosinophils (test code = 3.5 See_Comment [A utomated message] The Eosinophils) system which ge nerated this result tra nsmitted reference range : <=4.0. The reference r ondina was not used to int erpret this result as normal/abnormal . [facility]neRsqylrxEXJXASUHZJ4965-31-35 02:42:00 Test Item Value Reference Range Interpretation Comments Lymphocytes (test code = Lymphocytes) 21.4 20.0-40.0 [facility] Cle[facility]neQliukccYGNZCRXQLD5623-69-24 02:42:00 Test Item Value Reference Range Interpretation Comments Monocytes (test code = Monocytes) 7.3 2.0-12.0 [facility] Cle[facility]neZfpocwbECBZQOZHUM9460-17-27 02:42:00 Test Item Value Reference Range Interpretation Comments Basophils # (test code 0.1 See_Comment [Aut omated message] The = Basophils #) system which generated this result tra nsmitted reference range : <=0.2. The reference r ondina was not used to int erpret this result as normal/abnormal . [facility]neMwlrtosLPMYSJAWEK1114-16-32 02:42:00 Test Item Value Reference Range Interpretation Comments Microcyte (test code = 1+ *ABN*(08/15/18 Microcyte) 9:42 PM) [facility]neQypqsloPZCSTLKKCI9014-21-24 02:42:00 Test Item Value Reference Range Interpretation Comments Monocytes # (test code 0.4 See_Comment [Aut omated message] The = Monocytes #) system which generated this result tra nsmitted reference range : <=0.8. The reference r ondina was not used to int erpret this result as normal/abnormal . [facility]neNfdntbaOERVOIQQAS1489-25-73 02:42:00 Test Item Value Reference Range Interpretation Comments Eosinophils # (test code 0.2 See_Comment [A utomated message] The = Eosinophils #) system whic h generated this result tra nsmitted reference range : <=0.5. The reference r ondina was not used to int erpret this result as normal/abnormal . [facility]neGzsnjgwCWBTZXRDFY0799-66-51 02:42:00 Test Item Value Reference Range Interpretation Comments Segs (test code = Segs) 66.4 45.0-75.0 [facility] CleburneZydovyfTYVQCUEHEH9424-10-00 02:42:00 Test Item Value Reference Range Interpretation Comments PT (test code = PT) 13.5 s 12.0-14.7 [facility]neHvaqalaFDWDWJEZXD2012-07-75 02:42:00 Test Item Value Reference Range Interpretation Comments PTT (test code = PTT) 28.8 s 22.9-35.8 [facility] CleburneFcamezaMYOGSKRTQO0887-62-80 02:42:00 Test Item Value Reference Range Interpretation Comments INR (test code = INR) 1.05 1 0.85-1.17 [facility] [id number] 02:42:00 Test Item Value Reference Range Interpretation Comments Troponin-I (test code no gt See_Comment [Auto mated message] The = Troponin-I) system which g enerated this result transmit garrett reference range : <=0.40. The reference r ondina was not used to interpr et this result as cassie l/abnormal. [facility] TexasChalk[facility] [id number] 02:42:00 Test Item Value Reference Range Interpretation Comments Lipase Lvl (test code = Lipase Lvl) 165 73-393 [facility] GPDOB1847-02-38 02:42:00 Test Item Value Reference Range Interpretation Comments Bili Indirect (test 0.2 See_Comment [Automa garrett message] The code = Bili Indirect) system which generated this result tra nsmitted reference range : <=1.0. The reference r ondina was not used to int erpret this result as normal/abnormal . [facility]2019-06-14 02:42:00 Test Item Value Reference Range Interpretation Comments Bili Total (test code = Bili Total) 0.3 0.2-1.3 [facility]2019-06-14 02:42:00 Test Item Value Reference Range Interpretation Comments Alk Phos (test code = Alk Phos) 203 39-136 [facility]2019-06-14 02:42:00 Test Item Value Reference Range Interpretation Comments AST (test code = AST) 194 See_Comment [Auto mated message] The system which ge nerated this result transmit garrett reference range : <=37. The reference range was not used to interpr et this result as cassie l/abnormal. [facility]2019-06-14 02:42:00 Test Item Value Reference Range Interpretation Comments ALT (test code = ALT) 109 See_Comment [Auto mated message] The system which ge nerated this result transmit garrett reference range : <=65. The reference range was not used to interpr et this result as cassie l/abnormal. [facility]2019-06-14 02:42:00 Test Item Value Reference Range Interpretation Comments Bili Direct (test code 0.1 See_Comment [Aut omated message] The = Bili Direct) system which generated this result tra nsmitted reference range : <=0.3. The reference r ondina was not used to int erpret this result as cassie l/abnormal. [facility]2019-06-14 02:42:00 Test Item Value Reference Range Interpretation Comments Albumin Lvl (test code = Albumin Lvl) 3.0 3.5-5.0 [facility]2019-06-14 02:42:00 Test Item Value Reference Range Interpretation Comments Total Protein (test code = Total 6.9 6.4-8.4 Protein) [facility]2019-06-14 02:42:00 Test Item Value Reference Range Interpretation Comments Globulin (test code = Globulin) 3.9 2.7-4.2 [facility]2019-06-14 02:42:00 Test Item Value Reference Range Interpretation Comments A/G Ratio (test code = A/G Ratio) 0.8 1 0.7-1.6 [place] [id number] 02:42:00 Test Item Value Reference Range Interpretation Comments eGFR (test code = eGFR) 68 [facility]2019-06-14 02:42:00 Test Item Value Reference Range Interpretation Comments Potassium Lvl (test code = Potassium 3.9 3.5-5.1 Lvl) [facility]2019-06-14 02:42:00 Test Item Value Reference Range Interpretation Comments Sodium Lvl (test code = Sodium Lvl) 139 135-145 [facility]2019-06-14 02:42:00 Test Item Value Reference Range Interpretation Comments Calcium Lvl (test code = Calcium Lvl) 8.6 8.5-10.5 [facility]2019-06-14 02:42:00 Test Item Value Reference Range Interpretation Comments CO2 (test code = CO2) 25 24-32 [facility]2019-06-14 02:42:00 Test Item Value Reference Range Interpretation Comments Chloride Lvl (test code = Chloride Lvl) 105 95-109 [facility]2019-06-14 02:42:00 Test Item Value Reference Range Interpretation Comments Creatinine Lvl (test code = Creatinine 1.16 0.50-1.40 Lvl) [facility]2019-06-14 02:42:00 Test Item Value Reference Range Interpretation Comments BUN (test code = BUN) 21 7-22 [facility]2019-06-14 02:42:00 Test Item Value Reference Range Interpretation Comments Glucose Lvl (test code = Glucose Lvl) 88 70-99 [facility]2019-06-14 02:42:00 Test Item Value Reference Range Interpretation Comments AGAP (test code = AGAP) 12.9 10.0-20.0 [facility]neIvibctnKHLELTGDOL3805-50-32 02:42:00 Test Item Value Reference Range Interpretation Comments RDW (test code = RDW) 19.1 11.5-14.5 [facility]neCjbqbpmUDKIGGVNXF1459-00-34 02:42:00 Test Item Value Reference Range Interpretation Comments MPV (test code = MPV) 8.0 7.4-10.4 [place] [id number] 02:42:00 Test Item Value Reference Range Interpretation Comments Platelet (test code = Platelet) 259 133-450 [facility] TexasLtrynefMPVJXBGHEH8073-79-51 02:42:00 Test Item Value Reference Range Interpretation Comments MCHC (test code = MCHC) 31.2 32.0-36.0 [facility] TexasOziqdzxEJQIDTOGKF3020-84-66 02:42:00 Test Item Value Reference Range Interpretation Comments Hct (test code = Hct) 33.3 42.0-54.0 [facility]VnxyfqdXOMFLRUZVF5585-25-79 02:42:00 Test Item Value Reference Range Interpretation Comments Hgb (test code = Hgb) 10.4 14.0-18.0 [facility] TexasVqkhvdjLUIGZWOJKJ1382-26-63 02:42:00 Test Item Value Reference Range Interpretation Comments RBC (test code = RBC) 4.26 4.70-6.10 [facility] HospitalBpakzeaRGRDWPBNVF9728-87-14 02:42:00 Test Item Value Reference Range Interpretation Comments MCV (test code = MCV) 78.2 80.0-94.0 [facility]CARD[facility] [id number] 02:42:00 Test Item Value Reference Range Interpretation Comments Troponin-I (test code = Troponin-I) no gt <=0.40 [facility] TexasCHEM [id number] 02:42:00 Test Item Value Reference Range Interpretation Comments Lipase Lvl (test code = Lipase Lvl) 165 73-393 [facility] [id number] 02:42:00 Test Item Value Reference Range Interpretation Comments Bili Indirect (test code = Bili 0.2 <=1.0 Indirect) [facility] EWBBO4501-06-60 02:42:00 Test Item Value Reference Range Interpretation Comments Bili Total (test code = Bili Total) 0.3 0.2-1.3 [facility] [id number] 02:42:00 Test Item Value Reference Range Interpretation Comments Alk Phos (test code = Alk Phos) 203 39-136 [facility] [id number] 02:42:00 Test Item Value Reference Range Interpretation Comments AST (test code = AST) 194 <=37 [facility] [id number] 02:42:00 Test Item Value Reference Range Interpretation Comments ALT (test code = ALT) 109 <=65 [facility]2019-06-14 02:42:00 Test Item Value Reference Range Interpretation Comments Bili Direct (test code = Bili Direct) 0.1 <=0.3 [facility]2019-06-14 02:42:00 Test Item Value Reference Range Interpretation Comments Albumin Lvl (test code = Albumin Lvl) 3.0 3.5-5.0 [facility]2019-06-14 02:42:00 Test Item Value Reference Range Interpretation Comments Total Protein (test code = Total 6.9 6.4-8.4 Protein) [facility] TexasKwshrngIROMXCJGCK0054-02-68 02:42:00 Test Item Value Reference Range Interpretation Comments MCH (test code = MCH) 24.4 pg 27.0-31.0 [facility]2019-06-14 02:42:00 Test Item Value Reference Range Interpretation Comments Globulin (test code = Globulin) 3.9 2.7-4.2 [facility]2019-06-14 02:42:00 Test Item Value Reference Range Interpretation Comments A/G Ratio (test code = A/G Ratio) 0.8 1 0.7-1.6 [facility]2019-06-14 02:42:00 Test Item Value Reference Range Interpretation Comments eGFR (test code = eGFR) 68 [facility]2019-06-14 02:42:00 Test Item Value Reference Range Interpretation Comments Potassium Lvl (test code = Potassium 3.9 3.5-5.1 Lvl) [facility]2019-06-14 02:42:00 Test Item Value Reference Range Interpretation Comments Sodium Lvl (test code = Sodium Lvl) 139 135-145 [facility]2019-06-14 02:42:00 Test Item Value Reference Range Interpretation Comments Calcium Lvl (test code = Calcium Lvl) 8.6 8.5-10.5 [facility]2019-06-14 02:42:00 Test Item Value Reference Range Interpretation Comments CO2 (test code = CO2) 25 24-32 [facility]2019-06-14 02:42:00 Test Item Value Reference Range Interpretation Comments Chloride Lvl (test code = Chloride Lvl) 105 95-109 [facility]2019-06-14 02:42:00 Test Item Value Reference Range Interpretation Comments Creatinine Lvl (test code = Creatinine 1.16 0.50-1.40 Lvl) [facility]2019-06-14 02:42:00 Test Item Value Reference Range Interpretation Comments BUN (test code = BUN) 21 7-22 [facility]neJzajatmIEBZTFTTWY2423-02-69 02:42:00 Test Item Value Reference Range Interpretation Comments WBC (test code = WBC) 6.0 3.7-10.4 [facility]2019-06-14 02:42:00 Test Item Value Reference Range Interpretation Comments Glucose Lvl (test code = Glucose Lvl) 88 70-99 [facility]2019-06-14 02:42:00 Test Item Value Reference Range Interpretation Comments AGAP (test code = AGAP) 12.9 10.0-20.0 [facility] Cle[facility]neNmbceilCGBWECGWUI2829-95-79 02:42:00 Test Item Value Reference Range Interpretation Comments RDW (test code = RDW) 19.1 11.5-14.5 [facility]neIxupwasUUPYVDCHDS8126-34-32 02:42:00 Test Item Value Reference Range Interpretation Comments MPV (test code = MPV) 8.0 7.4-10.4 [facility]neXtksbjfVXHKNANUFH7001-75-85 02:42:00 Test Item Value Reference Range Interpretation Comments Platelet (test code = Platelet) 259 133-450 [facility] Cle[facility]neLebqnieHWTBNFCJAF7113-95-06 02:42:00 Test Item Value Reference Range Interpretation Comments MCHC (test code = MCHC) 31.2 32.0-36.0 [facility] CleburneNcheyxlUMDAZUTYRY8403-60-57 02:42:00 Test Item Value Reference Range Interpretation Comments Hct (test code = Hct) 33.3 42.0-54.0 [facility] Cle[facility]neQjjlvucODSFKIVSVW8135-46-00 02:42:00 Test Item Value Reference Range Interpretation Comments Hgb (test code = Hgb) 10.4 14.0-18.0 [facility]neWopkxhdOLLMXQXYWU4077-01-22 02:42:00 Test Item Value Reference Range Interpretation Comments RBC (test code = RBC) 4.26 4.70-6.10 [facility]neJuuyilnFZKCYRYTHU4040-44-86 02:42:00 Test Item Value Reference Range Interpretation Comments MCV (test code = MCV) 78.2 80.0-94.0 [facility] Cle[facility]neIxadplpQGXYDOLYDR9194-87-82 02:42:00 Test Item Value Reference Range Interpretation Comments Neutrophils # (test code = Neutrophils 4.0 1.5-8.1 #) [facility]neSuglmenQZLNIHHSNY8238-58-38 02:42:00 Test Item Value Reference Range Interpretation Comments MCH (test code = MCH) 24.4 pg 27.0-31.0 [facility]neSvljuigFRSXQYKLJG5868-37-79 02:42:00 Test Item Value Reference Range Interpretation Comments WBC (test code = WBC) 6.0 3.7-10.4 [facility]neJruhsfeJPPRWWYUOW2466-78-03 02:42:00 Test Item Value Reference Range Interpretation Comments Neutrophils # (test code = Neutrophils 4.0 1.5-8.1 #) [facility]neAwnojbiPCZXHTJTIR2248-20-75 02:42:00 Test Item Value Reference Range Interpretation Comments Lymphocytes # (test code = Lymphocytes 1.3 1.0-5.5 #) [facility] Cle[facility]neTdlkcgnUVIPOHSRJU0646-55-84 02:42:00 Test Item Value Reference Range Interpretation Comments Basophils (test code = Basophils) 1.4 <=1.0 [facility] Cle[facility]neXaazyymJMKAAJFJRF6334-84-15 02:42:00 Test Item Value Reference Range Interpretation Comments Eosinophils (test code = Eosinophils) 3.5 <=4.0 [facility]neXwfvheyNSMDRMFTUW4505-79-90 02:42:00 Test Item Value Reference Range Interpretation Comments Lymphocytes (test code = Lymphocytes) 21.4 20.0-40.0 [facility]burneLppkgmoSBLIERGNLT2017-98-82 02:42:00 Test Item Value Reference Range Interpretation Comments Monocytes (test code = Monocytes) 7.3 2.0-12.0 [facility] Cle[facility]neVtkicjlWORAGDKGAW6639-81-65 02:42:00 Test Item Value Reference Range Interpretation Comments Basophils # (test code = Basophils #) 0.1 <=0.2 [facility]neGhftzfaWWKYVACRGO6434-79-14 02:42:00 Test Item Value Reference Range Interpretation Comments Microcyte (test code = 1+ *ABN*(08/15/18 Microcyte) 9:42 PM) [facility]neLcfosacUISYDBRYZL1569-27-78 02:42:00 Test Item Value Reference Range Interpretation Comments Lymphocytes # (test code = Lymphocytes 1.3 1.0-5.5 #) [facility]neJhmdaiqTGWEFBKRRA7860-15-69 02:42:00 Test Item Value Reference Range Interpretation Comments Monocytes # (test code = Monocytes #) 0.4 <=0.8 [facility] CleburneSxafesvDEMUSOZCXB2667-37-06 02:42:00 Test Item Value Reference Range Interpretation Comments Eosinophils # (test code = Eosinophils 0.2 <=0.5 #) [facility] CleburneWgmmijvSFQSGUNFKX3574-46-12 02:42:00 Test Item Value Reference Range Interpretation Comments Segs (test code = Segs) 66.4 45.0-75.0 [facility]neDurqobwVDUJUYWUVV3244-50-69 02:42:00 Test Item Value Reference Range Interpretation Comments PT (test code = PT) 13.5 s 12.0-14.7 [facility]neEbmqgrqVILTAHIVDZ0160-42-16 02:42:00 Test Item Value Reference Range Interpretation Comments PTT (test code = PTT) 28.8 s 22.9-35.8 [facility] CleburneHmzmyvcBDOOQQLJWX4413-35-41 02:42:00 Test Item Value Reference Range Interpretation Comments INR (test code = INR) 1.05 1 0.85-1.17 [facility] CleburnePybndvrMGWTSZNHXO5526-99-75 02:42:00 Test Item Value Reference Range Interpretation Comments Basophils (test code = 1.4 See_Comment [Aut omated message] The Basophils) system which ge nerated this result tra nsmitted reference range : <=1.0. The reference r ondina was not used to int erpret this result as normal/abnormal . [facility] Cle[facility]neWatfmmhIYMUQVTYLS0783-33-68 02:42:00 Test Item Value Reference Range Interpretation Comments Eosinophils (test code = 3.5 See_Comment [A utomated message] The Eosinophils) system which ge nerated this result tra nsmitted reference range : <=4.0. The reference r ondina was not used to int erpret this result as normal/abnormal . [facility]neQlzezfrAZJMSRSNIS5826-96-89 02:42:00 Test Item Value Reference Range Interpretation Comments Lymphocytes (test code = Lymphocytes) 21.4 20.0-40.0 [facility] CleburneGklaxtoEYJYZPWTMK3824-59-13 02:42:00 Test Item Value Reference Range Interpretation Comments Monocytes (test code = Monocytes) 7.3 2.0-12.0 [facility] CleburneXpphzolRHJHHZRCRK1306-28-56 02:42:00 Test Item Value Reference Range Interpretation Comments Basophils # (test code 0.1 See_Comment [Aut omated message] The = Basophils #) system which generated this result tra nsmitted reference range : <=0.2. The reference r ondina was not used to int erpret this result as normal/abnormal . [facility] CleburneIkyqqihNDGYPLITNL7363-15-99 02:42:00 Test Item Value Reference Range Interpretation Comments Microcyte (test code = 1+ *ABN*(08/15/18 Microcyte) 9:42 PM) [facility] CleburneOqazyyjEHLRHTDEOQ4416-36-28 02:42:00 Test Item Value Reference Range Interpretation Comments Monocytes # (test code 0.4 See_Comment [Aut omated message] The = Monocytes #) system which generated this result tra nsmitted reference range : <=0.8. The reference r ondina was not used to int erpret this result as normal/abnormal . [facility] Cle[facility]neTxathreVPJXJXABUZ3090-24-70 02:42:00 Test Item Value Reference Range Interpretation Comments Eosinophils # (test code 0.2 See_Comment [A utomated message] The = Eosinophils #) system whic h generated this result tra nsmitted reference range : <=0.5. The reference r ondina was not used to int erpret this result as normal/abnormal . [facility]neNejztftEBHGCVEOZZ5681-30-18 02:42:00 Test Item Value Reference Range Interpretation Comments Segs (test code = Segs) 66.4 45.0-75.0 [facility]neEpqrjahIREXBGODOL2681-83-76 02:42:00 Test Item Value Reference Range Interpretation Comments PT (test code = PT) 13.5 s 12.0-14.7 [facility] [facility]lYTGHLWZXPP6579[facility] 02:42:00 Test Item Value Reference Range Interpretation Comments PTT (test code = PTT) 28.8 s 22.9-35.8 [facility]WT[facility]OBMDJQ0041[facility]-03 02:42:00 Test Item Value Reference Range Interpretation Comments INR (test code = INR) 1.05 1 0.85-1.17 [facility] [id number] 02:42:00 Test Item Value Reference Range Interpretation Comments Troponin-I (test code = Troponin-I) no gt <=0.40 [facility]CHE[facility] [id number] 02:42:00 Test Item Value Reference Range Interpretation Comments Lipase Lvl (test code = Lipase Lvl) 165 73-393 [facility]2019-06-14 02:42:00 Test Item Value Reference Range Interpretation Comments Bili Indirect (test code = Bili 0.2 <=1.0 Indirect) [facility]2019-06-14 02:42:00 Test Item Value Reference Range Interpretation Comments Bili Total (test code = Bili Total) 0.3 0.2-1.3 [facility]2019-06-14 02:42:00 Test Item Value Reference Range Interpretation Comments Alk Phos (test code = Alk Phos) 203 39-136 [facility]2019-06-14 02:42:00 Test Item Value Reference Range Interpretation Comments AST (test code = AST) 194 <=37 [facility]2019-06-14 02:42:00 Test Item Value Reference Range Interpretation Comments ALT (test code = ALT) 109 <=65 [facility]2019-06-14 02:42:00 Test Item Value Reference Range Interpretation Comments Bili Direct (test code = Bili Direct) 0.1 <=0.3 [facility]2019-06-14 02:42:00 Test Item Value Reference Range Interpretation Comments Albumin Lvl (test code = Albumin Lvl) 3.0 3.5-5.0 [facility]2019-06-14 02:42:00 Test Item Value Reference Range Interpretation Comments Total Protein (test code = Total 6.9 6.4-8.4 Protein) [facility]2019-06-14 02:42:00 Test Item Value Reference Range Interpretation Comments Globulin (test code = Globulin) 3.9 2.7-4.2 [facility]2019-06-14 02:42:00 Test Item Value Reference Range Interpretation Comments A/G Ratio (test code = A/G Ratio) 0.8 1 0.7-1.6 [facility]2019-06-14 02:42:00 Test Item Value Reference Range Interpretation Comments eGFR (test code = eGFR) 68 [facility]2019-06-14 02:42:00 Test Item Value Reference Range Interpretation Comments Potassium Lvl (test code = Potassium 3.9 3.5-5.1 Lvl) [facility]2019-06-14 02:42:00 Test Item Value Reference Range Interpretation Comments Sodium Lvl (test code = Sodium Lvl) 139 135-145 [facility]2019-06-14 02:42:00 Test Item Value Reference Range Interpretation Comments Calcium Lvl (test code = Calcium Lvl) 8.6 8.5-10.5 [facility]2019-06-14 02:42:00 Test Item Value Reference Range Interpretation Comments CO2 (test code = CO2) 25 24-32 [facility]2019-06-14 02:42:00 Test Item Value Reference Range Interpretation Comments Chloride Lvl (test code = Chloride Lvl) 105 95-109 [facility]2019-06-14 02:42:00 Test Item Value Reference Range Interpretation Comments Creatinine Lvl (test code = Creatinine 1.16 0.50-1.40 Lvl) [facility]2019-06-14 02:42:00 Test Item Value Reference Range Interpretation Comments BUN (test code = BUN) 21 7-22 [facility]2019-06-14 02:42:00 Test Item Value Reference Range Interpretation Comments Glucose Lvl (test code = Glucose Lvl) 88 70-99 [facility]2019-06-14 02:42:00 Test Item Value Reference Range Interpretation Comments AGAP (test code = AGAP) 12.9 10.0-20.0 [facility]SlmarqlNHPGTDMWQN8886-22-48 02:42:00 Test Item Value Reference Range Interpretation Comments RDW (test code = RDW) 19.1 11.5-14.5 [facility]PtkfqjhSTCUBOSSQL9537-87-16 02:42:00 Test Item Value Reference Range Interpretation Comments MPV (test code = MPV) 8.0 7.4-10.4 [facility]LnvhcrbSGWGZSORJV1152-58-04 02:42:00 Test Item Value Reference Range Interpretation Comments Platelet (test code = Platelet) 259 133-450 [facility]WqyttyeWSCCJYXOQK1986-68-00 02:42:00 Test Item Value Reference Range Interpretation Comments MCHC (test code = MCHC) 31.2 32.0-36.0 [facility]neFkysqusWGDTCHFMLB8276-45-62 02:42:00 Test Item Value Reference Range Interpretation Comments Hct (test code = Hct) 33.3 42.0-54.0 [facility]neKuhlljnBTSKYSFXCJ3222-94-67 02:42:00 Test Item Value Reference Range Interpretation Comments Hgb (test code = Hgb) 10.4 14.0-18.0 [facility]neRnfldijWCTUDRGDVY0667-44-05 02:42:00 Test Item Value Reference Range Interpretation Comments RBC (test code = RBC) 4.26 4.70-6.10 [facility]neYaymezqXLZGRBFZSQ2817-80-98 02:42:00 Test Item Value Reference Range Interpretation Comments MCV (test code = MCV) 78.2 80.0-94.0 [facility]neJmqfyqsWYTRGITOZX3958-08-22 02:42:00 Test Item Value Reference Range Interpretation Comments MCH (test code = MCH) 24.4 pg 27.0-31.0 [facility]neAkkwzzeDDAIWDYZLL3597-57-23 02:42:00 Test Item Value Reference Range Interpretation Comments WBC (test code = WBC) 6.0 3.7-10.4 [facility]neDdcviruILTKJISGMC5042-66-44 02:42:00 Test Item Value Reference Range Interpretation Comments Neutrophils # (test code = Neutrophils 4.0 1.5-8.1 #) [facility]nePbcthdoVCRCEOYUVX7154-33-52 02:42:00 Test Item Value Reference Range Interpretation Comments Lymphocytes # (test code = Lymphocytes 1.3 1.0-5.5 #) [facility]neNjniquoDDQSBHKPAO0484-62-19 02:42:00 Test Item Value Reference Range Interpretation Comments Basophils (test code = Basophils) 1.4 <=1.0 [facility]neNrnwzkaZRUHNHKCHN2794-06-70 02:42:00 Test Item Value Reference Range Interpretation Comments Eosinophils (test code = Eosinophils) 3.5 <=4.0 [facility]neXlkduljIXFHSSIXSM3725-74-35 02:42:00 Test Item Value Reference Range Interpretation Comments Lymphocytes (test code = Lymphocytes) 21.4 20.0-40.0 [facility]neVzjjdnuCKXTRQBDWX2913-14-57 02:42:00 Test Item Value Reference Range Interpretation Comments Monocytes (test code = Monocytes) 7.3 2.0-12.0 [facility]neFgizxapNDLPABZEWA0023-55-43 02:42:00 Test Item Value Reference Range Interpretation Comments Basophils # (test code = Basophils #) 0.1 <=0.2 [facility]neIlfooehQNZCTOLXPH0750-49-46 02:42:00 Test Item Value Reference Range Interpretation Comments Microcyte (test code = 1+ *ABN*(08/15/18 Microcyte) 9:42 PM) [facility]neCwrwyahZPJWUSVXQF7214-52-23 02:42:00 Test Item Value Reference Range Interpretation Comments Monocytes # (test code = Monocytes #) 0.4 <=0.8 [facility]neCkuaookPBGFTMNTDI5446-56-35 02:42:00 Test Item Value Reference Range Interpretation Comments Eosinophils # (test code = Eosinophils 0.2 <=0.5 #) [facility]neNwoaxguAMGYDRMBSD4512-96-72 02:42:00 Test Item Value Reference Range Interpretation Comments Segs (test code = Segs) 66.4 45.0-75.0 [facility]neLdmflexDZNIDSJJEF4386-36-10 02:42:00 Test Item Value Reference Range Interpretation Comments PT (test code = PT) 13.5 s 12.0-14.7 [facility]neXvnmbyfMZNVVWEQRJ1154-85-52 02:42:00 Test Item Value Reference Range Interpretation Comments PTT (test code = PTT) 28.8 s 22.9-35.8 [facility]neGwyifwiFNXHQHMWMY1714-10-73 02:42:00 Test Item Value Reference Range Interpretation Comments INR (test code = INR) 1.05 1 0.85-1.17 [facility] TexasCulture: Mpayoekft4223-52-28 20:00:00 Test Item Value Reference Range Interpretation Comments Culture: Anaerobic (test Culture In Progress code = Culture: Anaerobic) [facility] Dztnls1168-19-72 20:00:00 Test Item Value Reference Range Interpretation Comments Gram Stain Report Rare WBC's No Organisms (test code = Gram Seen Stain Report) [facility] TexasCulture: Aspirate/Body Fluid/Qmzbcs3768-61-80 20:00:00 Test Item Value Reference Range Interpretation Comments Culture: Aspirate/Body No Growth; Holding Fluid/Tissue (test code = Culture: Aspirate/Body Fluid/Tissue) [facility] TexasCulture: Vhgunyznl7485-17-75 20:00:00 Test Item Value Reference Range Interpretation Comments Culture: Anaerobic (test Culture In Progress code = Culture: Anaerobic) [facility] Tdheom9544-03-09 20:00:00 Test Item Value Reference Range Interpretation Comments Gram Stain Report Rare WBC's No Organisms (test code = Gram Seen Stain Report) [facility] Aspirate/Body Fluid/Zhfpqe0607-12-90 20:00:00 Test Item Value Reference Range Interpretation Comments Culture: Aspirate/Body No Growth; Holding Fluid/Tissue (test code = Culture: Aspirate/Body Fluid/Tissue) [facility]Culture: Kteipniuo8766-92-56 20:00:00 Test Item Value Reference Range Interpretation Comments Culture: Anaerobic (test Culture In Progress code = Culture: Anaerobic) [facility]annGram Stain Ycnkoa0894-46-31 20:00:00 Test Item Value Reference Range Interpretation Comments Gram Stain Report Rare WBC's No Organisms (test code = Gram Seen Stain Report) [facility]annCulture: Aspirate/Body Fluid/Qqyiix1207-27-94 20:00:00 Test Item Value Reference Range Interpretation Comments Culture: Aspirate/Body No Growth; Holding Fluid/Tissue (test code = Culture: Aspirate/Body Fluid/Tissue) [facility]annCulture: Rxfecubrw5413-62-09 20:00:00 Test Item Value Reference Range Interpretation Comments Culture: Anaerobic (test Culture In Progress code = Culture: Anaerobic) [facility]annGram Stain [id number] 20:00:00 Test Item Value Reference Range Interpretation Comments Gram Stain Report Rare WBC's No Organisms (test code = Gram Seen Stain Report) [facility]annCulture: Aspirate/Body Fluid/Banfho2476-10-73 20:00:00 Test Item Value Reference Range Interpretation Comments Culture: Aspirate/Body No Growth; Holding Fluid/Tissue (test code = Culture: Aspirate/Body Fluid/Tissue) [facility]annCulture: Wuxrhzskt1483-29-53 20:00:00 Test Item Value Reference Range Interpretation Comments Culture: Anaerobic (test Culture In Progress code = Culture: Anaerobic) [facility]annGram Stain Wbujdx4318-12-45 20:00:00 Test Item Value Reference Range Interpretation Comments Gram Stain Report Rare WBC's No Organisms (test code = Gram Seen Stain Report) [facility] Dallasannlture: Aspirate/Body Fluid/Agkqko9966-65-15 20:00:00 Test Item Value Reference Range Interpretation Comments Culture: Aspirate/Body No Growth; Holding Fluid/Tissue (test code = Culture: Aspirate/Body Fluid/Tissue) [facility]Culture: Ifbpbtwfl1839-62-61 20:00:00 Test Item Value Reference Range Interpretation Comments Culture: Anaerobic (test Culture In Progress code = Culture: Anaerobic) [facility] Stain Yrzbxy2749-19-13 20:00:00 Test Item Value Reference Range Interpretation Comments Gram Stain Report Rare WBC's No Organisms (test code = Gram Seen Stain Report) [facility] Dallasannlture: Aspirate/Body Fluid/Ihtoub1312-89-04 20:00:00 Test Item Value Reference Range Interpretation Comments Culture: Aspirate/Body No Growth; Holding Fluid/Tissue (test code = Culture: Aspirate/Body Fluid/Tissue) [facility]Culture: Ozxmujmor8634-26-78 15:00:00 Test Item Value Reference Range Interpretation Comments Culture: Anaerobic No Anaerobes Isolated (test code = Culture: After 2 Days Anaerobic) [facility] Stain [id number] 15:00:00 Test Item Value Reference Range Interpretation Comments Gram Stain Report No Wbc'S Or Organisms (test code = Gram Seen Stain Report) [facility] Aspirate/Body Fluid/Bfrkvp0617-86-36 15:00:00 Test Item Value Reference Range Interpretation Comments Culture: 48 Hour Report - No Aspirate/Body Growth, Holding Fluid/Tissue (test code = Culture: Aspirate/Body Fluid/Tissue) [facility]Culture: Tofixozfv2682-20-27 15:00:00 Test Item Value Reference Range Interpretation Comments Culture: Anaerobic No Anaerobes Isolated (test code = Culture: After 2 Days Anaerobic) [facility] Stain Skhjac4720-46-99 15:00:00 Test Item Value Reference Range Interpretation Comments Gram Stain Report No Wbc'S Or Organisms (test code = Gram Seen Stain Report) [facility]: Aspirate/Body Fluid/Sgiesn7630-81-62 15:00:00 Test Item Value Reference Range Interpretation Comments Culture: 48 Hour Report - No Aspirate/Body Growth, Holding Fluid/Tissue (test code = Culture: Aspirate/Body Fluid/Tissue) [facility]Culture: Ddaqutyuu1981-66-41 15:00:00 Test Item Value Reference Range Interpretation Comments Culture: Anaerobic No Anaerobes Isolated (test code = Culture: After 2 Days Anaerobic) [facility] Stain [id number] 15:00:00 Test Item Value Reference Range Interpretation Comments Gram Stain Report No Wbc'S Or Organisms (test code = Gram Seen Stain Report) [facility]: Aspirate/Body Fluid/Qyccyx6788-51-77 15:00:00 Test Item Value Reference Range Interpretation Comments Culture: 48 Hour Report - No Aspirate/Body Growth, Holding Fluid/Tissue (test code = Culture: Aspirate/Body Fluid/Tissue) [facility]: Jfiyrgpvq5954-23-10 15:00:00 Test Item Value Reference Range Interpretation Comments Culture: Anaerobic No Anaerobes Isolated (test code = Culture: After 2 Days Anaerobic) [facility] [id number] 15:00:00 Test Item Value Reference Range Interpretation Comments Gram Stain Report No Wbc'S Or Organisms (test code = Gram Seen Stain Report) [facility]: Aspirate/Body Fluid/Jjoqtu2971-98-69 15:00:00 Test Item Value Reference Range Interpretation Comments Culture: 48 Hour Report - No Aspirate/Body Growth, Holding Fluid/Tissue (test code = Culture: Aspirate/Body Fluid/Tissue) [facility] [place]: Gtydfutpi3525-57-18 15:00:00 Test Item Value Reference Range Interpretation Comments Culture: Anaerobic No Anaerobes Isolated (test code = Culture: After 2 Days Anaerobic) [facility] Stain Cuhcax1342-84-15 15:00:00 Test Item Value Reference Range Interpretation Comments Gram Stain Report No Wbc'S Or Organisms (test code = Gram Seen Stain Report) [facility]: Aspirate/Body Fluid/Miatkv4435-96-68 15:00:00 Test Item Value Reference Range Interpretation Comments Culture: 48 Hour Report - No Aspirate/Body Growth, Holding Fluid/Tissue (test code = Culture: Aspirate/Body Fluid/Tissue) [facility]Cult[facility] [place]: [id number] 15:00:00 Test Item Value Reference Range Interpretation Comments Culture: Anaerobic No Anaerobes Isolated (test code = Culture: After 2 Days Anaerobic) [facility] Stain Vvbjij4417-65-91 15:00:00 Test Item Value Reference Range Interpretation Comments Gram Stain Report No Wbc'S Or Organisms (test code = Gram Seen Stain Report) [facility]: Aspirate/Body Fluid/Hcaqbj3783-98-56 15:00:00 Test Item Value Reference Range Interpretation Comments Culture: 48 Hour Report - No Aspirate/Body Growth, Holding Fluid/Tissue (test code = Culture: Aspirate/Body Fluid/Tissue) [facility]2019-04-01 10:50:00 Test Item Value Reference Range Interpretation Comments Calcium Lvl (test code = Calcium Lvl) 7.7 8.5-10.5 [facility]2019-04-01 10:50:00 Test Item Value Reference Range Interpretation Comments Potassium Lvl (test code = Potassium 3.6 3.5-5.1 Lvl) [facility]2019-04-01 10:50:00 Test Item Value Reference Range Interpretation Comments Chloride Lvl (test code = Chloride Lvl) 113 95-109 [facility]2019-04-01 10:50:00 Test Item Value Reference Range Interpretation Comments Sodium Lvl (test code = Sodium Lvl) 144 135-145 [facility]2019-04-01 10:50:00 Test Item Value Reference Range Interpretation Comments Creatinine Lvl (test code = Creatinine 0.86 0.50-1.40 Lvl) [facility]2019-04-01 10:50:00 Test Item Value Reference Range Interpretation Comments eGFR (test code = eGFR) 94 [facility]2019-04-01 10:50:00 Test Item Value Reference Range Interpretation Comments CO2 (test code = CO2) 22 24-32 [facility]2019-04-01 10:50:00 Test Item Value Reference Range Interpretation Comments Glucose Lvl (test code = Glucose Lvl) 89 70-99 [facility]2019-04-01 10:50:00 Test Item Value Reference Range Interpretation Comments BUN (test code = BUN) 10 7-22 [facility]2019-04-01 10:50:00 Test Item Value Reference Range Interpretation Comments AGAP (test code = AGAP) 12.6 10.0-20.0 [facility]2019-04-01 10:50:00 Test Item Value Reference Range Interpretation Comments Calcium Lvl (test code = Calcium Lvl) 7.7 8.5-10.5 [facility]2019-04-01 10:50:00 Test Item Value Reference Range Interpretation Comments Potassium Lvl (test code = Potassium 3.6 3.5-5.1 Lvl) [facility]2019-04-01 10:50:00 Test Item Value Reference Range Interpretation Comments Chloride Lvl (test code = Chloride Lvl) 113 95-109 [facility]2019-04-01 10:50:00 Test Item Value Reference Range Interpretation Comments Sodium Lvl (test code = Sodium Lvl) 144 135-145 [facility]2019-04-01 10:50:00 Test Item Value Reference Range Interpretation Comments Creatinine Lvl (test code = Creatinine 0.86 0.50-1.40 Lvl) [facility]2019-04-01 10:50:00 Test Item Value Reference Range Interpretation Comments eGFR (test code = eGFR) 94 [facility]2019-04-01 10:50:00 Test Item Value Reference Range Interpretation Comments CO2 (test code = CO2) 22 24-32 [facility]2019-04-01 10:50:00 Test Item Value Reference Range Interpretation Comments Glucose Lvl (test code = Glucose Lvl) 89 70-99 [facility]2019-04-01 10:50:00 Test Item Value Reference Range Interpretation Comments BUN (test code = BUN) 10 7-22 [facility]2019-04-01 10:50:00 Test Item Value Reference Range Interpretation Comments AGAP (test code = AGAP) 12.6 10.0-20.0 [facility]2019-04-01 10:50:00 Test Item Value Reference Range Interpretation Comments Calcium Lvl (test code = Calcium Lvl) 7.7 8.5-10.5 [facility]2019-04-01 10:50:00 Test Item Value Reference Range Interpretation Comments Potassium Lvl (test code = Potassium 3.6 3.5-5.1 Lvl) [facility]2019-04-01 10:50:00 Test Item Value Reference Range Interpretation Comments Chloride Lvl (test code = Chloride Lvl) 113 95-109 [facility]2019-04-01 10:50:00 Test Item Value Reference Range Interpretation Comments Sodium Lvl (test code = Sodium Lvl) 144 135-145 [facility]2019-04-01 10:50:00 Test Item Value Reference Range Interpretation Comments Creatinine Lvl (test code = Creatinine 0.86 0.50-1.40 Lvl) [facility]2019-04-01 10:50:00 Test Item Value Reference Range Interpretation Comments eGFR (test code = eGFR) 94 [facility]2019-04-01 10:50:00 Test Item Value Reference Range Interpretation Comments CO2 (test code = CO2) - [facility]2019-04-01 10:50:00 Test Item Value Reference Range Interpretation Comments Glucose Lvl (test code = Glucose Lvl) 89 70-99 [facility]2019-04-01 10:50:00 Test Item Value Reference Range Interpretation Comments BUN (test code = BUN) 10 - [facility]2019-04-01 10:50:00 Test Item Value Reference Range Interpretation Comments AGAP (test code = AGAP) 12.6 10.0-20.0 [facility]2019-04-01 10:50:00 Test Item Value Reference Range Interpretation Comments Calcium Lvl (test code = Calcium Lvl) 7.7 8.5-10.5 [facility]2019-04-01 10:50:00 Test Item Value Reference Range Interpretation Comments Potassium Lvl (test code = Potassium 3.6 3.5-5.1 Lvl) [facility]2019-04-01 10:50:00 Test Item Value Reference Range Interpretation Comments Chloride Lvl (test code = Chloride Lvl) 113 95-109 [facility]2019-04-01 10:50:00 Test Item Value Reference Range Interpretation Comments Sodium Lvl (test code = Sodium Lvl) 144 135-145 [facility]2019-04-01 10:50:00 Test Item Value Reference Range Interpretation Comments Creatinine Lvl (test code = Creatinine 0.86 0.50-1.40 Lvl) [facility]2019-04-01 10:50:00 Test Item Value Reference Range Interpretation Comments eGFR (test code = eGFR) 94 [facility]2019-04-01 10:50:00 Test Item Value Reference Range Interpretation Comments CO2 (test code = CO2) - [facility]2019-04-01 10:50:00 Test Item Value Reference Range Interpretation Comments Glucose Lvl (test code = Glucose Lvl) 89 70-99 [facility]2019-04-01 10:50:00 Test Item Value Reference Range Interpretation Comments BUN (test code = BUN) 10 7-22 [facility]2019-04-01 10:50:00 Test Item Value Reference Range Interpretation Comments AGAP (test code = AGAP) 12.6 10.0-20.0 [facility]2019-04-01 10:50:00 Test Item Value Reference Range Interpretation Comments Calcium Lvl (test code = Calcium Lvl) 7.7 8.5-10.5 [facility]2019-04-01 10:50:00 Test Item Value Reference Range Interpretation Comments Potassium Lvl (test code = Potassium 3.6 3.5-5.1 Lvl) [facility]2019-04-01 10:50:00 Test Item Value Reference Range Interpretation Comments Chloride Lvl (test code = Chloride Lvl) 113 95-109 [facility]2019-04-01 10:50:00 Test Item Value Reference Range Interpretation Comments Sodium Lvl (test code = Sodium Lvl) 144 135-145 [facility]2019-04-01 10:50:00 Test Item Value Reference Range Interpretation Comments Creatinine Lvl (test code = Creatinine 0.86 0.50-1.40 Lvl) [facility]2019-04-01 10:50:00 Test Item Value Reference Range Interpretation Comments eGFR (test code = eGFR) 94 [facility]2019-04-01 10:50:00 Test Item Value Reference Range Interpretation Comments CO2 (test code = CO2) 22 24-32 [facility]2019-04-01 10:50:00 Test Item Value Reference Range Interpretation Comments Glucose Lvl (test code = Glucose Lvl) 89 70-99 [facility]2019-04-01 10:50:00 Test Item Value Reference Range Interpretation Comments BUN (test code = BUN) 10 7- [facility]2019-04-01 10:50:00 Test Item Value Reference Range Interpretation Comments AGAP (test code = AGAP) 12.6 10.0-20.0 [facility]2019-04-01 10:50:00 Test Item Value Reference Range Interpretation Comments Calcium Lvl (test code = Calcium Lvl) 7.7 8.5-10.5 [facility]2019-04-01 10:50:00 Test Item Value Reference Range Interpretation Comments Potassium Lvl (test code = Potassium 3.6 3.5-5.1 Lvl) [facility]2019-04-01 10:50:00 Test Item Value Reference Range Interpretation Comments Chloride Lvl (test code = Chloride Lvl) 113 95-109 [facility]2019-04-01 10:50:00 Test Item Value Reference Range Interpretation Comments Sodium Lvl (test code = Sodium Lvl) 144 135-145 [facility]2019-04-01 10:50:00 Test Item Value Reference Range Interpretation Comments Creatinine Lvl (test code = Creatinine 0.86 0.50-1.40 Lvl) [facility]2019-04-01 10:50:00 Test Item Value Reference Range Interpretation Comments eGFR (test code = eGFR) 94 [facility]2019-04-01 10:50:00 Test Item Value Reference Range Interpretation Comments CO2 (test code = CO2) 22 24-32 [facility]2019-04-01 10:50:00 Test Item Value Reference Range Interpretation Comments Glucose Lvl (test code = Glucose Lvl) 89 70-99 [facility]2019-04-01 10:50:00 Test Item Value Reference Range Interpretation Comments BUN (test code = BUN) 10 7-22 [facility]2019-04-01 10:50:00 Test Item Value Reference Range Interpretation Comments AGAP (test code = AGAP) 12.6 10.0-20.0 [facility]2019-03-31 20:59:00 Test Item Value Reference Range Interpretation Comments BNP (test code = BNP) 454 [facility]2019-03-31 20:59:00 Test Item Value Reference Range Interpretation Comments Troponin-I (test code no gt See_Comment [Auto mated message] The = Troponin-I) system which g enerated this result transmit garrett reference range : <=0.40. The reference r ondina was not used to interpr et this result as cassie l/abnormal. [facility]2019-03-31 20:59:00 Test Item Value Reference Range Interpretation Comments Total CK (test code = Total CK) 38 12-191 [facility]ZtfwrgnVRXPBDSZMNWG3220-90-52 20:59:00 Test Item Value Reference Range Interpretation Comments AGAP (test code = AGAP) 9.7 10.0-20.0 [facility] HospitalAbanfvgWMXHEKKUJHAM8609-38-37 20:59:00 Test Item Value Reference Range Interpretation Comments B/C Ratio (test code = B/C Ratio) 11 1 6-25 [facility] HospitalQehylqyEZPZXIJYIYIC7242-57-95 20:59:00 Test Item Value Reference Range Interpretation Comments A/G Ratio (test code = A/G Ratio) 0.6 1 0.7-1.6 [facility] HospitalLwdfrrzLFSAXRYMNLXC0559-73-04 20:59:00 Test Item Value Reference Range Interpretation Comments Globulin (test code = Globulin) 4.2 2.7-4.2 [facility] HospitalCqdgpuuMVUHIIYEMPOR3091-50-59 20:59:00 Test Item Value Reference Range Interpretation Comments Albumin Lvl (test code = Albumin Lvl) 2.7 3.5-5.0 [facility] HospitalZfqslmvTPGTJJNJQYDG1579-68-64 20:59:00 Test Item Value Reference Range Interpretation Comments Glucose Lvl (test code = Glucose Lvl) 98 70-99 [facility] HospitalVkefleeYNJVRQPNGHDM3497-29-94 20:59:00 Test Item Value Reference Range Interpretation Comments CO2 (test code = CO2) 26 24-32 [facility] HospitalDmdgkztRLJQRBLAEMVF1866-41-89 20:59:00 Test Item Value Reference Range Interpretation Comments BUN (test code = BUN) 11 7-22 [facility] HospitalCmtlfjjYCHQHRBFFRQB1311-84-41 20:59:00 Test Item Value Reference Range Interpretation Comments eGFR (test code = eGFR) 82 [facility] HospitalSblnngxFDZNTZIKGISK3772-58-37 20:59:00 Test Item Value Reference Range Interpretation Comments AST (test code = AST) 6 See_Comment [Auto mated message] The system which ge nerated this result transmit garrett reference range : <=37. The reference range was not used to interpr et this result as cassie l/abnormal. [facility] HospitalVwhzoasEVMUPBLTLYYN3639-66-37 20:59:00 Test Item Value Reference Range Interpretation Comments ALT (test code = ALT) 13 See_Comment [Auto mated message] The system which ge nerated this result transmit garrett reference range : <=65. The reference range was not used to interpr et this result as cassie l/abnormal. [facility] HospitalMncbgxgAISNHCUDAQNU2322-10-22 20:59:00 Test Item Value Reference Range Interpretation Comments Creatinine Lvl (test code = Creatinine 1.00 0.50-1.40 Lvl) [facility] HospitalMbggkpaKUVYPQWCBBZR5988-21-30 20:59:00 Test Item Value Reference Range Interpretation Comments Bili Total (test code = Bili Total) 0.1 0.2-1.3 [facility] HospitalGkbbfgaVCKGKTWWHSLD7902-63-17 20:59:00 Test Item Value Reference Range Interpretation Comments Total Protein (test code = Total 6.9 6.4-8.4 Protein) [facility] HospitalWqnddvnMRPPYYEIRQDM5988-05-26 20:59:00 Test Item Value Reference Range Interpretation Comments Calcium Lvl (test code = Calcium Lvl) 8.2 8.5-10.5 [facility] HospitalVyoxwabIBKJUGYNEDGI9035-96-13 20:59:00 Test Item Value Reference Range Interpretation Comments Alk Phos (test code = Alk Phos) 122 39-136 [facility] HospitalXqzibzzTAWOJTXBCMNN1777-70-79 20:59:00 Test Item Value Reference Range Interpretation Comments Sodium Lvl (test code = Sodium Lvl) 145 135-145 [facility] HospitalQyhacjgSVVEOUPBHBXR3207-11-90 20:59:00 Test Item Value Reference Range Interpretation Comments Chloride Lvl (test code = Chloride Lvl) 113 95-109 [facility] HospitalZcyrjazPSWOZTXHNHRC3825-59-89 20:59:00 Test Item Value Reference Range Interpretation Comments Potassium Lvl (test code = Potassium 3.7 3.5-5.1 Lvl) [facility]neHldhoskFYLZKZLBSK4680-40-39 20:59:00 Test Item Value Reference Range Interpretation Comments PT (test code = PT) 13.3 s 12.0-14.7 [facility]neJeqygzkDAOWFSYKUH8554-78-98 20:59:00 Test Item Value Reference Range Interpretation Comments INR (test code = INR) 1.03 1 0.85-1.17 [facility]neAkbybhvZYDZNZTGVE2759-89-72 20:59:00 Test Item Value Reference Range Interpretation Comments PTT (test code = PTT) 31.9 s 22.9-35.8 [facility]neYmnwizbERQPIUYCIA8926-16-83 20:59:00 Test Item Value Reference Range Interpretation Comments MPV (test code = MPV) 8.1 7.4-10.4 [facility]neVlbegxgTKTPZMPGLB1810-82-92 20:59:00 Test Item Value Reference Range Interpretation Comments MCHC (test code = MCHC) 30.8 32.0-36.0 [facility] Cle[facility]nePbjhjuqBFTYMAFHZH6378-53-74 20:59:00 Test Item Value Reference Range Interpretation Comments MCV (test code = MCV) 81.3 80.0-94.0 [facility] Cle[facility]neFsplxdcVCSTOYRNMX8496-31-95 20:59:00 Test Item Value Reference Range Interpretation Comments MCH (test code = MCH) 25.1 pg 27.0-31.0 [facility] Cle[facility]neDrgcyzdPHESGUFHMQ9413-23-40 20:59:00 Test Item Value Reference Range Interpretation Comments RDW (test code = RDW) 18.6 11.5-14.5 [facility] Cle[facility]neKujwdeeOQNNIGECFM7719-94-08 20:59:00 Test Item Value Reference Range Interpretation Comments RBC (test code = RBC) 3.52 4.70-6.10 [facility]neWrqcfjpIQPBNMRBLU6395-16-27 20:59:00 Test Item Value Reference Range Interpretation Comments Hgb (test code = Hgb) 8.8 14.0-18.0 [facility]neVxgvnjbMPKNIKLTVE6255-12-08 20:59:00 Test Item Value Reference Range Interpretation Comments WBC (test code = WBC) 6.0 3.7-10.4 [facility]nePzdkxalZEGCONPJEN6290-22-70 20:59:00 Test Item Value Reference Range Interpretation Comments Hct (test code = Hct) 28.6 42.0-54.0 [facility] Cle[facility]neFugorjbGLNRWXPGMN9619-47-71 20:59:00 Test Item Value Reference Range Interpretation Comments Platelet (test code = Platelet) 390 133-450 [facility] Cle[facility]neSujwlwqKXEJMYIIVS5859-20-66 20:59:00 Test Item Value Reference Range Interpretation Comments Monocytes (test code = Monocytes) 10.1 2.0-12.0 [facility] Cle[facility]neWxqvodrPDMFULQSUD6800-31-15 20:59:00 Test Item Value Reference Range Interpretation Comments Lymphocytes (test code = Lymphocytes) 16.4 20.0-40.0 [facility] Cle[facility]neXwhizqlMZKPKCODSF7671-12-62 20:59:00 Test Item Value Reference Range Interpretation Comments Anisocyte (test code = 1+ *ABN*(06/02/18 Anisocyte) 3:59 PM) [facility] Cle[facility]neStmaxmrBGCJPUTDPL2296-69-31 20:59:00 Test Item Value Reference Range Interpretation Comments Eosinophils # (test code 0.2 See_Comment [A utomated message] The = Eosinophils #) system whic h generated this result tra nsmitted reference range : <=0.5. The reference r ondina was not used to int erpret this result as normal/abnormal . [facility] Cle[facility]neZtfrxgpURDMGJONYI3471-61-51 20:59:00 Test Item Value Reference Range Interpretation Comments Neutrophils # (test code = Neutrophils 4.1 1.5-8.1 #) [facility] Cle[facility]neCjlglfoDEMWTHSYTV5513-61-71 20:59:00 Test Item Value Reference Range Interpretation Comments Basophils (test code = 0.8 See_Comment [Aut omated message] The Basophils) system which ge nerated this result tra nsmitted reference range : <=1.0. The reference r ondina was not used to int erpret this result as normal/abnormal . [facility] Cle[facility]neKsslqpzLJMXVKVZOH5528-70-79 20:59:00 Test Item Value Reference Range Interpretation Comments Eosinophils (test code = 4.0 See_Comment [A utomated message] The Eosinophils) system which ge nerated this result tra nsmitted reference range : <=4.0. The reference r ondina was not used to int erpret this result as normal/abnormal . [facility]neFhhfolhEEWMWQTBYM2236-59-60 20:59:00 Test Item Value Reference Range Interpretation Comments Segs (test code = Segs) 68.7 45.0-75.0 [facility] Cle[facility]neYggdbsjULGHVITJNB0647-86-86 20:59:00 Test Item Value Reference Range Interpretation Comments Hypochrom (test code = 2+ (06/02/18 3:59 PM) Hypochrom) [facility] CleburneEakwzrmOXPREZKNZT5672-46-83 20:59:00 Test Item Value Reference Range Interpretation Comments Large Plt (test code Moderate *ABN*(06/02/18 = Large Plt) 3:59 PM) [facility] Cle[facility]neNfgruvyLFTECDGCBD8000-76-10 20:59:00 Test Item Value Reference Range Interpretation Comments Lymphocytes # (test code = Lymphocytes 1.0 1.0-5.5 #) [facility] Cle[facility]neHobnsfjFNTDTPKQBH3711-45-75 20:59:00 Test Item Value Reference Range Interpretation Comments Monocytes # (test code 0.6 See_Comment [Aut omated message] The = Monocytes #) system which generated this result tra nsmitted reference range : <=0.8. The reference r ondina was not used to int erpret this result as normal/abnormal . [facility]CARAC ELNVIYB2242-42-64 20:59:00 Test Item Value Reference Range Interpretation Comments BNP (test code = BNP) 454 [facility] GOZQLIQ7110-33-73 20:59:00 Test Item Value Reference Range Interpretation Comments Troponin-I (test code no gt See_Comment [Auto mated message] The = Troponin-I) system which g enerated this result transmit garrett reference range : <=0.40. The reference r ondina was not used to interpr et this result as cassie l/abnormal. [facility] FCDBTWK8861-15-13 20:59:00 Test Item Value Reference Range Interpretation Comments Total CK (test code = Total CK) 38 12-191 [facility] HospitalKqokeslIIITYEOMHHUG6313-82-86 20:59:00 Test Item Value Reference Range Interpretation Comments AGAP (test code = AGAP) 9.7 10.0-20.0 [facility] HospitalMfsvjwxEIDOUWRHWJAL5919-41-15 20:59:00 Test Item Value Reference Range Interpretation Comments B/C Ratio (test code = B/C Ratio) 11 1 6-25 [facility] HospitalFdldwlfWVXROUJQXVPS3688-28-74 20:59:00 Test Item Value Reference Range Interpretation Comments A/G Ratio (test code = A/G Ratio) 0.6 1 0.7-1.6 [facility] HospitalFmgvkopGNCUHELAAJKB7432-42-41 20:59:00 Test Item Value Reference Range Interpretation Comments Globulin (test code = Globulin) 4.2 2.7-4.2 [facility] HospitalBgtsymuPGJQEVXBZOPX8735-92-81 20:59:00 Test Item Value Reference Range Interpretation Comments Albumin Lvl (test code = Albumin Lvl) 2.7 3.5-5.0 [facility] HospitalKkeitbnKYLAICQVLBGL3094-07-37 20:59:00 Test Item Value Reference Range Interpretation Comments Glucose Lvl (test code = Glucose Lvl) 98 70-99 [facility] HospitalYmxhyccTXUPBDVWPLZN9377-84-27 20:59:00 Test Item Value Reference Range Interpretation Comments CO2 (test code = CO2) 26 24-32 [facility] HospitalNqinrjgHUPSHBHFQLKL2395-09-86 20:59:00 Test Item Value Reference Range Interpretation Comments BUN (test code = BUN) 11 7-22 [facility] HospitalBbyasffOIXFOGYPWOGB1901-35-15 20:59:00 Test Item Value Reference Range Interpretation Comments eGFR (test code = eGFR) 82 [facility] HospitalWcwjdkcFFHGIQGYMIZT5936-36-92 20:59:00 Test Item Value Reference Range Interpretation Comments AST (test code = AST) 6 See_Comment [Auto mated message] The system which ge nerated this result transmit garrett reference range : <=37. The reference range was not used to interpr et this result as cassie l/abnormal. [facility] HospitalSltgdrxDIFQVJOGRSDE1641-11-56 20:59:00 Test Item Value Reference Range Interpretation Comments ALT (test code = ALT) 13 See_Comment [Auto mated message] The system which ge nerated this result transmit garrett reference range : <=65. The reference range was not used to interpr et this result as cassie l/abnormal. [facility] HospitalKexwapkYIDZCKTGCXVO8843-03-23 20:59:00 Test Item Value Reference Range Interpretation Comments Creatinine Lvl (test code = Creatinine 1.00 0.50-1.40 Lvl) [facility] HospitalIvecxhiSMJNGJZTAZFG9296-31-10 20:59:00 Test Item Value Reference Range Interpretation Comments Bili Total (test code = Bili Total) 0.1 0.2-1.3 [facility] HospitalCrfxwquNMBORXNHCMNH5452-26-02 20:59:00 Test Item Value Reference Range Interpretation Comments Total Protein (test code = Total 6.9 6.4-8.4 Protein) [facility] HospitalFnycmnfNPWLRSVWTQUG6597-79-55 20:59:00 Test Item Value Reference Range Interpretation Comments Calcium Lvl (test code = Calcium Lvl) 8.2 8.5-10.5 [facility] HospitalPvmdkerIKWKCPUKQMMW2600-89-14 20:59:00 Test Item Value Reference Range Interpretation Comments Alk Phos (test code = Alk Phos) 122 39-136 [facility] HospitalSfoiixaZICCTZPOTUDG0823-90-92 20:59:00 Test Item Value Reference Range Interpretation Comments Sodium Lvl (test code = Sodium Lvl) 145 135-145 [facility] HospitalJrhtrrzDTZWFAREMQLU2295-09-57 20:59:00 Test Item Value Reference Range Interpretation Comments Chloride Lvl (test code = Chloride Lvl) 113 95-109 [facility] HospitalUxcaugnKFOWKTGUOWVT9298-03-99 20:59:00 Test Item Value Reference Range Interpretation Comments Potassium Lvl (test code = Potassium 3.7 3.5-5.1 Lvl) [facility]neHyuaaenSBDLJKVMJJ5440-87-59 20:59:00 Test Item Value Reference Range Interpretation Comments PT (test code = PT) 13.3 s 12.0-14.7 [facility] CleburneRouuwzaLETRETNYTF0988-89-40 20:59:00 Test Item Value Reference Range Interpretation Comments INR (test code = INR) 1.03 1 0.85-1.17 [facility] CleburneFyjwzsfZWOGCBFSLW9808-13-69 20:59:00 Test Item Value Reference Range Interpretation Comments PTT (test code = PTT) 31.9 s 22.9-35.8 [facility] CleburneGewlqyqKRPACMQSTS7149-05-91 20:59:00 Test Item Value Reference Range Interpretation Comments MPV (test code = MPV) 8.1 7.4-10.4 [facility] CleburneIlvdpqlSSVUQAIPAZ2916-74-82 20:59:00 Test Item Value Reference Range Interpretation Comments MCHC (test code = MCHC) 30.8 32.0-36.0 [facility] CleburneBrbvqefIGRHLGIFOQ3409-13-18 20:59:00 Test Item Value Reference Range Interpretation Comments MCV (test code = MCV) 81.3 80.0-94.0 [facility] CleburneOxtmzrjEORDRXKMIO6234-30-10 20:59:00 Test Item Value Reference Range Interpretation Comments MCH (test code = MCH) 25.1 pg 27.0-31.0 [facility] CleburneHpmuplcERERAVCEYT9377-01-38 20:59:00 Test Item Value Reference Range Interpretation Comments RDW (test code = RDW) 18.6 11.5-14.5 [facility] CleburneHhxozcxZUJZSIVAAD0627-29-15 20:59:00 Test Item Value Reference Range Interpretation Comments RBC (test code = RBC) 3.52 4.70-6.10 [facility] CleburneOkspgmlXPVCYOTGIP8221-49-40 20:59:00 Test Item Value Reference Range Interpretation Comments Hgb (test code = Hgb) 8.8 14.0-18.0 [facility] CleburneHitdrzuPGMPVXJYRS7210-83-47 20:59:00 Test Item Value Reference Range Interpretation Comments WBC (test code = WBC) 6.0 3.7-10.4 [facility] CleburneHatazgnZOWTDIFAGZ2968-67-35 20:59:00 Test Item Value Reference Range Interpretation Comments Hct (test code = Hct) 28.6 42.0-54.0 [facility] CleburneAchutxnCYXGFADVVW7206-14-25 20:59:00 Test Item Value Reference Range Interpretation Comments Platelet (test code = Platelet) 390 133-450 [facility] CleburneTplfmflXHPLOPFSBA2808-21-65 20:59:00 Test Item Value Reference Range Interpretation Comments Monocytes (test code = Monocytes) 10.1 2.0-12.0 [facility] CleburneWajzxjcIBCGLZCDFH0052-56-97 20:59:00 Test Item Value Reference Range Interpretation Comments Lymphocytes (test code = Lymphocytes) 16.4 20.0-40.0 [place] 085099-03-31 20:59:00 Test Item Value Reference Range Interpretation Comments Anisocyte (test code = 1+ *ABN*(06/02/18 Anisocyte) 3:59 PM) [facility] Cle[facility]neIpxddxeIWVRJPJDAJ3158-28-54 20:59:00 Test Item Value Reference Range Interpretation Comments Eosinophils # (test code 0.2 See_Comment [A utomated message] The = Eosinophils #) system [facility] generated this result tra nsmitted reference range : <=0.5. The reference r ondina was not used to int erpret this result as normal/abnormal . [facility] CleburnePkamppiHNBVYNHIST2578-12-64 20:59:00 Test Item Value Reference Range Interpretation Comments Neutrophils # (test code = Neutrophils 4.1 1.5-8.1 #) [facility] CleburneLbllsnnUCWPWMFEML7635-03-03 20:59:00 Test Item Value Reference Range Interpretation Comments Basophils (test code = 0.8 See_Comment [Aut omated message] The Basophils) system which ge nerated this result tra nsmitted reference range : <=1.0. The reference r ondina was not used to int erpret this result as normal/abnormal . [facility] CleburneIgnkeshXCVBJNOAFS9825-42-36 20:59:00 Test Item Value Reference Range Interpretation Comments Eosinophils (test code = 4.0 See_Comment [A utomated message] The Eosinophils) system which ge nerated this result tra nsmitted reference range : <=4.0. The reference r ondina was not used to int erpret this result as normal/abnormal . [facility] CleburneZqoxbpfXBDEUOEZYQ7215-79-26 20:59:00 Test Item Value Reference Range Interpretation Comments Segs (test code = Segs) 68.7 45.0-75.0 [facility] CleburneLxedjgoKRUWLBEXOZ8445-74-40 20:59:00 Test Item Value Reference Range Interpretation Comments Hypochrom (test code = 2+ (06/02/18 3:59 PM) Hypochrom) [facility] CleburneIirvkdyMZBQAIQZET4130-23-93 20:59:00 Test Item Value Reference Range Interpretation Comments Large Plt (test code Moderate *ABN*(06/02/18 = Large Plt) 3:59 PM) [facility] CleburneKxtgabdLGVSBWQYWD0782-74-28 20:59:00 Test Item Value Reference Range Interpretation Comments Lymphocytes # (test code = Lymphocytes 1.0 1.0-5.5 #) [facility] CleburneRdogzktMGMRZPMDIA0849-09-84 20:59:00 Test Item Value Reference Range Interpretation Comments Monocytes # (test code 0.6 See_Comment [Aut omated message] The = Monocytes #) system which generated this result tra nsmitted reference range : <=0.8. The reference r ondina was not used to int erpret this result as normal/abnormal . [facility] TexasCARSilent Edge EGNNBTZ4857-30-94 20:59:00 Test Item Value Reference Range Interpretation Comments BNP (test code = BNP) 454 [facility] TexasGeomagicSA[facility] IHAEWPP2255-83-48 20:59:00 Test Item Value Reference Range Interpretation Comments Troponin-I (test code no gt See_Comment [Auto mated message] The = Troponin-I) system which g enerated this result transmit garrett reference range : <=0.40. The reference r ondina was not used to interpr et this result as cassie l/abnormal. [facility] TexasKite.[facility] HPNVGDI0966-15-49 20:59:00 Test Item Value Reference Range Interpretation Comments Total CK (test code = Total CK) 38 12-191 [facility] HospitalTtusmalFGELHYAZHLAE7088-86-38 20:59:00 Test Item Value Reference Range Interpretation Comments AGAP (test code = AGAP) 9.7 10.0-20.0 [facility] HospitalJdykhtrSKNMUIADNZDM1650-71-19 20:59:00 Test Item Value Reference Range Interpretation Comments B/C Ratio (test code = B/C Ratio) 11 1 6-25 [facility] HospitalDslxlqjJTMTXULTHBUB2002-37-74 20:59:00 Test Item Value Reference Range Interpretation Comments A/G Ratio (test code = A/G Ratio) 0.6 1 0.7-1.6 [facility] HospitalDdpdaygPQNWWOOEYSIR8616-30-88 20:59:00 Test Item Value Reference Range Interpretation Comments Globulin (test code = Globulin) 4.2 2.7-4.2 [facility] HospitalTcedyicEBIEPLOPDWUN0482-27-67 20:59:00 Test Item Value Reference Range Interpretation Comments Albumin Lvl (test code = Albumin Lvl) 2.7 3.5-5.0 [facility] HospitalQnifsynSOSFSWXHMVTH3061-88-68 20:59:00 Test Item Value Reference Range Interpretation Comments Glucose Lvl (test code = Glucose Lvl) 98 70-99 [facility] HospitalYsvuoonSLVGBTJUIUCC0907-01-79 20:59:00 Test Item Value Reference Range Interpretation Comments CO2 (test code = CO2) 26 24-32 [facility] HospitalJnaybkmDKEXGSOGQTLB2440-75-89 20:59:00 Test Item Value Reference Range Interpretation Comments BUN (test code = BUN) 11 7-22 [facility] HospitalXpdwsouUYQNYUNVZEQF4731-30-77 20:59:00 Test Item Value Reference Range Interpretation Comments eGFR (test code = eGFR) 82 [facility] HospitalUshphntJYXWDBADBSRP6476-71-49 20:59:00 Test Item Value Reference Range Interpretation Comments AST (test code = AST) 6 See_Comment [Auto mated message] The system which ge nerated this result transmit garrett reference range : <=37. The reference range was not used to interpr et this result as cassie l/abnormal. [facility] HospitalYovdilrQXDPJTHQEOKU5689-87-22 20:59:00 Test Item Value Reference Range Interpretation Comments ALT (test code = ALT) 13 See_Comment [Auto mated message] The system which ge nerated this result transmit garrett reference range : <=65. The reference range was not used to interpr et this result as cassie l/abnormal. [facility] HospitalXwwfdlyVKTXVHEJQMTB2207-12-60 20:59:00 Test Item Value Reference Range Interpretation Comments Creatinine Lvl (test code = Creatinine 1.00 0.50-1.40 Lvl) [facility] HospitalQrpnokrPBYHUHWOTFSJ0506-94-19 20:59:00 Test Item Value Reference Range Interpretation Comments Bili Total (test code = Bili Total) 0.1 0.2-1.3 [facility] HospitalEauezirNVMAVPMZWPGP0144-78-39 20:59:00 Test Item Value Reference Range Interpretation Comments Total Protein (test code = Total 6.9 6.4-8.4 Protein) [facility] HospitalQrosiexBGJTKAKVXVNX1557-93-25 20:59:00 Test Item Value Reference Range Interpretation Comments Calcium Lvl (test code = Calcium Lvl) 8.2 8.5-10.5 [facility] HospitalCrqsjqkMXGTQMXEAAKW8981-95-73 20:59:00 Test Item Value Reference Range Interpretation Comments Alk Phos (test code = Alk Phos) 122 39-136 [facility]FcpbvtnHKXEWNKDRPPT9105-64-40 20:59:00 Test Item Value Reference Range Interpretation Comments Sodium Lvl (test code = Sodium Lvl) 145 135-145 [facility] HospitalNzvsdjzSWICVUHABRJW4998-72-42 20:59:00 Test Item Value Reference Range Interpretation Comments Chloride Lvl (test code = Chloride Lvl) 113 95-109 [facility] HospitalYdwlaklDECNNOGXLAJF0849-52-14 20:59:00 Test Item Value Reference Range Interpretation Comments Potassium Lvl (test code = Potassium 3.7 3.5-5.1 Lvl) [facility]ZcdfuowNFSUXVGQLG3164-04-35 20:59:00 Test Item Value Reference Range Interpretation Comments PT (test code = PT) 13.3 s 12.0-14.7 [facility]neJtyyxhyMEIDNSLWNY9493-15-00 20:59:00 Test Item Value Reference Range Interpretation Comments INR (test code = INR) 1.03 1 0.85-1.17 [facility]neMugneqqFIGBSYVQYR0839-48-87 20:59:00 Test Item Value Reference Range Interpretation Comments PTT (test code = PTT) 31.9 s 22.9-35.8 [facility]neOlqoiuiMRBOQHLAAH3197-45-47 20:59:00 Test Item Value Reference Range Interpretation Comments MPV (test code = MPV) 8.1 7.4-10.4 [facility]neAmvlvxeROZCHMCKLO9547-01-42 20:59:00 Test Item Value Reference Range Interpretation Comments MCHC (test code = MCHC) 30.8 32.0-36.0 [facility] Cle[facility]neDgezimcTXSTQJCBPE5790-10-69 20:59:00 Test Item Value Reference Range Interpretation Comments MCV (test code = MCV) 81.3 80.0-94.0 [facility]neJkftlibQRSRBPPIMJ4658-46-10 20:59:00 Test Item Value Reference Range Interpretation Comments MCH (test code = MCH) 25.1 pg 27.0-31.0 [facility] Cle[facility]neRdemdnzGZQCFLSUGX9612-57-99 20:59:00 Test Item Value Reference Range Interpretation Comments RDW (test code = RDW) 18.6 11.5-14.5 [facility] CleburneDxorpabVYYEVHEDLD4846-52-10 20:59:00 Test Item Value Reference Range Interpretation Comments RBC (test code = RBC) 3.52 4.70-6.10 [facility]neWaynhzySMVMQUTWTZ4942-38-05 20:59:00 Test Item Value Reference Range Interpretation Comments Hgb (test code = Hgb) 8.8 14.0-18.0 [facility]neSqawbwpXSYROLDJBQ6060-61-30 20:59:00 Test Item Value Reference Range Interpretation Comments WBC (test code = WBC) 6.0 3.7-10.4 [facility]neBkfdstcTUEWRVTRXH5257-70-22 20:59:00 Test Item Value Reference Range Interpretation Comments Hct (test code = Hct) 28.6 42.0-54.0 [facility]neKzqcjetYDIPGQDCNE0943-64-84 20:59:00 Test Item Value Reference Range Interpretation Comments Platelet (test code = Platelet) 390 133-450 [facility]neYimnytcZAGCYTYFPR4418-22-82 20:59:00 Test Item Value Reference Range Interpretation Comments Monocytes (test code = Monocytes) 10.1 2.0-12.0 [facility] CleburneDifdzxbHCEFCUSBAW6738-25-00 20:59:00 Test Item Value Reference Range Interpretation Comments Lymphocytes (test code = Lymphocytes) 16.4 20.0-40.0 [facility]neNcgnjpaJQWWECAHSW9538-76-74 20:59:00 Test Item Value Reference Range Interpretation Comments Anisocyte (test code = 1+ *ABN*(06/02/18 Anisocyte) 3:59 PM) [facility]neKhervjtMRKYWRYOGR6869-77-05 20:59:00 Test Item Value Reference Range Interpretation Comments Eosinophils # (test code 0.2 See_Comment [A utomated message] The = Eosinophils #) system whic h generated this result tra nsmitted reference range : <=0.5. The reference r ondina was not used to int erpret this result as normal/abnormal . [facility]neJleidspKNVRTDJEQX4803-18-26 20:59:00 Test Item Value Reference Range Interpretation Comments Neutrophils # (test code = Neutrophils 4.1 1.5-8.1 #) [facility] Cle[facility]neAxzhoveDEDRFVGFOA4029-30-08 20:59:00 Test Item Value Reference Range Interpretation Comments Basophils (test code = 0.8 See_Comment [Aut omated message] The Basophils) system which ge nerated this result tra nsmitted reference range : <=1.0. The reference r ondina was not used to int erpret this result as normal/abnormal . [facility]neBehsmebOVXROTWULD9158-46-87 20:59:00 Test Item Value Reference Range Interpretation Comments Eosinophils (test code = 4.0 See_Comment [A utomated message] The Eosinophils) system which ge nerated this result tra nsmitted reference range : <=4.0. The reference r ondina was not used to int erpret this result as normal/abnormal . [facility]neHjhmgkmFRQBPYGYZK3233-43-10 20:59:00 Test Item Value Reference Range Interpretation Comments Segs (test code = Segs) 68.7 45.0-75.0 [facility]neOnghqvzCAITDWHDSV2813-89-24 20:59:00 Test Item Value Reference Range Interpretation Comments Hypochrom (test code = 2+ (06/02/18 3:59 PM) Hypochrom) [facility]neThuvulvRJYIEKSNTU2330-59-68 20:59:00 Test Item Value Reference Range Interpretation Comments Large Plt (test code Moderate *ABN*(06/02/18 = Large Plt) 3:59 PM) [facility]neDudebhpLFZSUIOPLV6540-41-42 20:59:00 Test Item Value Reference Range Interpretation Comments Lymphocytes # (test code = Lymphocytes 1.0 1.0-5.5 #) [facility]neDcnuhpuJDBBNRLFPZ7756-11-00 20:59:00 Test Item Value Reference Range Interpretation Comments Monocytes # (test code 0.6 See_Comment [Aut omated message] The = Monocytes #) system which generated this result tra nsmitted reference range : <=0.8. The reference r ondina was not used to int erpret this result as normal/abnormal . [facility]CARD[facility] YOHNUOB7212-06-56 20:59:00 Test Item Value Reference Range Interpretation Comments BNP (test code = BNP) 454 [facility] VVWEQMH5227-01-33 20:59:00 Test Item Value Reference Range Interpretation Comments Troponin-I (test code = Troponin-I) no gt <=0.40 [facility] RSWVGAR5180-27-49 20:59:00 Test Item Value Reference Range Interpretation Comments Total CK (test code = Total CK) 38 12-191 [facility] HospitalJprwczmBHCOTXEFLSJF4766-37-52 20:59:00 Test Item Value Reference Range Interpretation Comments AGAP (test code = AGAP) 9.7 10.0-20.0 [facility] HospitalZgybczuUKMHVBRSRNBC4563-76-94 20:59:00 Test Item Value Reference Range Interpretation Comments B/C Ratio (test code = B/C Ratio) 11 1 6-25 [facility] HospitalNmotwvxQBTIYBFAXIGG5711-28-62 20:59:00 Test Item Value Reference Range Interpretation Comments A/G Ratio (test code = A/G Ratio) 0.6 1 0.7-1.6 [facility] HospitalLhazfdtXATWGQKWDRQE3970-14-06 20:59:00 Test Item Value Reference Range Interpretation Comments Globulin (test code = Globulin) 4.2 2.7-4.2 [facility] HospitalJaphrhiLTBKXYHZLGTG3184-05-75 20:59:00 Test Item Value Reference Range Interpretation Comments Albumin Lvl (test code = Albumin Lvl) 2.7 3.5-5.0 [facility] HospitalMdtghipYCMTYTYMOMUG1008-33-76 20:59:00 Test Item Value Reference Range Interpretation Comments Glucose Lvl (test code = Glucose Lvl) 98 70-99 [facility] HospitalQthhwfdUULCVUWADVOT9292-50-21 20:59:00 Test Item Value Reference Range Interpretation Comments CO2 (test code = CO2) 26 24-32 [facility] HospitalSqaijjhESZEPUUEVVIZ9877-19-07 20:59:00 Test Item Value Reference Range Interpretation Comments BUN (test code = BUN) 11 7-22 [facility] HospitalMversacQVCKIHXEKWQN0855-38-20 20:59:00 Test Item Value Reference Range Interpretation Comments eGFR (test code = eGFR) 82 [facility] HospitalNxxlwofRJBVOHKEFSML8370-19-34 20:59:00 Test Item Value Reference Range Interpretation Comments AST (test code = AST) 6 <=37 [facility] HospitalXsavuxzVUYUXRRYUXHM8856-44-58 20:59:00 Test Item Value Reference Range Interpretation Comments ALT (test code = ALT) 13 <=65 [facility] HospitalRmbxkcaVRPCNXQXDFWD4012-50-84 20:59:00 Test Item Value Reference Range Interpretation Comments Creatinine Lvl (test code = Creatinine 1.00 0.50-1.40 Lvl) [facility] HospitalExoequeTYZHBRNQKPAN4995-60-49 20:59:00 Test Item Value Reference Range Interpretation Comments Bili Total (test code = Bili Total) 0.1 0.2-1.3 [facility] HospitalTdwndunZAFKWQHDEMIC9946-37-79 20:59:00 Test Item Value Reference Range Interpretation Comments Total Protein (test code = Total 6.9 6.4-8.4 Protein) [facility] HospitalAlsifyxVRASRWVLFUQQ4044-48-90 20:59:00 Test Item Value Reference Range Interpretation Comments Calcium Lvl (test code = Calcium Lvl) 8.2 8.5-10.5 [facility] HospitalZhpdapsBDSQXYFEGSSN6388-13-03 20:59:00 Test Item Value Reference Range Interpretation Comments Alk Phos (test code = Alk Phos) 122 39-136 [facility] HospitalPsobsyyAMEJRJVFBLAZ0955-84-37 20:59:00 Test Item Value Reference Range Interpretation Comments Sodium Lvl (test code = Sodium Lvl) 145 135-145 [facility] HospitalVlyrvrnVPCSQINLJTIE0826-94-66 20:59:00 Test Item Value Reference Range Interpretation Comments Chloride Lvl (test code = Chloride Lvl) 113 95-109 [facility] HospitalJbiszqqOJGMXSAZQODN8613-28-42 20:59:00 Test Item Value Reference Range Interpretation Comments Potassium Lvl (test code = Potassium 3.7 3.5-5.1 Lvl) [facility]neOzrwshdEEPSQQRXGL7837-50-76 20:59:00 Test Item Value Reference Range Interpretation Comments PT (test code = PT) 13.3 s 12.0-14.7 [facility]neVlsnuawPWNUHJWBVT9322-77-63 20:59:00 Test Item Value Reference Range Interpretation Comments INR (test code = INR) 1.03 1 0.85-1.17 [facility]neMtrakkkYBWHWBCUCX2669-57-77 20:59:00 Test Item Value Reference Range Interpretation Comments PTT (test code = PTT) 31.9 s 22.9-35.8 [facility]neWgnqqayRBVNRDADVW4927-47-76 20:59:00 Test Item Value Reference Range Interpretation Comments MPV (test code = MPV) 8.1 7.4-10.4 [facility]neNhbhhcaJXPOLLIZMJ3501-80-68 20:59:00 Test Item Value Reference Range Interpretation Comments MCHC (test code = MCHC) 30.8 32.0-36.0 [facility] Cle[facility]neUaffmhwITHJBNDEFG6435-40-33 20:59:00 Test Item Value Reference Range Interpretation Comments MCV (test code = MCV) 81.3 80.0-94.0 [facility] Cle[facility]neSayrcauJTVOGWMAMK8052-64-78 20:59:00 Test Item Value Reference Range Interpretation Comments MCH (test code = MCH) 25.1 pg 27.0-31.0 [facility] Cle[facility]neYygumfvYSXTJEDXCM6188-13-35 20:59:00 Test Item Value Reference Range Interpretation Comments RDW (test code = RDW) 18.6 11.5-14.5 [facility]neMiybvjdBAHEWGOFBE7011-17-15 20:59:00 Test Item Value Reference Range Interpretation Comments RBC (test code = RBC) 3.52 4.70-6.10 [facility]neBnvaadxTTEADFFZPU0067-69-03 20:59:00 Test Item Value Reference Range Interpretation Comments Hgb (test code = Hgb) 8.8 14.0-18.0 [facility]neEyvqdgaYOVNUJKTPR7830-85-90 20:59:00 Test Item Value Reference Range Interpretation Comments WBC (test code = WBC) 6.0 3.7-10.4 [facility]neSmirczzRUCYOGRYMI1743-84-05 20:59:00 Test Item Value Reference Range Interpretation Comments Hct (test code = Hct) 28.6 42.0-54.0 [facility] CleburneRgosvqnEWRKYPHJAP6645-23-42 20:59:00 Test Item Value Reference Range Interpretation Comments Platelet (test code = Platelet) 390 133-450 [facility] Cle[facility]neOkfkshiXHJAPJGEPS8831-55-41 20:59:00 Test Item Value Reference Range Interpretation Comments Monocytes (test code = Monocytes) 10.1 2.0-12.0 [facility] CleburneIinfkwfEOHYXKSAPR7605-57-84 20:59:00 Test Item Value Reference Range Interpretation Comments Lymphocytes (test code = Lymphocytes) 16.4 20.0-40.0 [facility]neCxhflesLBIEFPWPBE2626-08-36 20:59:00 Test Item Value Reference Range Interpretation Comments Anisocyte (test code = 1+ *ABN*(06/02/18 Anisocyte) 3:59 PM) [facility]neNfujshyOJXUELKMLP8776-66-90 20:59:00 Test Item Value Reference Range Interpretation Comments Eosinophils # (test code = Eosinophils 0.2 <=0.5 #) [facility]neIaxiwvrWJFGAWPXYZ6562-38-28 20:59:00 Test Item Value Reference Range Interpretation Comments Neutrophils # (test code = Neutrophils 4.1 1.5-8.1 #) [facility]neGqegajjAPBYJYMBIK1718-87-40 20:59:00 Test Item Value Reference Range Interpretation Comments Basophils (test code = Basophils) 0.8 <=1.0 [facility]neZppyjehLUYCQXZRBO6901-61-88 20:59:00 Test Item Value Reference Range Interpretation Comments Eosinophils (test code = Eosinophils) 4.0 <=4.0 [facility]neTaaybmpKBOAEGVTJD4402-51-50 20:59:00 Test Item Value Reference Range Interpretation Comments Segs (test code = Segs) 68.7 45.0-75.0 [facility]neQvkxpyhPELGDNHRAC9547-36-34 20:59:00 Test Item Value Reference Range Interpretation Comments Hypochrom (test code = 2+ (06/02/18 3:59 PM) Hypochrom) [facility]neVbzyuepJVGWEWLMWL8280-29-46 20:59:00 Test Item Value Reference Range Interpretation Comments Large Plt (test code Moderate *ABN*(06/02/18 = Large Plt) 3:59 PM) [facility]neVbpshniKLOIGRCXIF1860-62-98 20:59:00 Test Item Value Reference Range Interpretation Comments Lymphocytes # (test code = Lymphocytes 1.0 1.0-5.5 #) [facility]nePxqkgdnFDZDLCPKLZ8288-99-28 20:59:00 Test Item Value Reference Range Interpretation Comments Monocytes # (test code = Monocytes #) 0.6 <=0.8 [facility]CARAC PEQPTUR9787-84-53 20:59:00 Test Item Value Reference Range Interpretation Comments BNP (test code = BNP) 454 [facility] DMRDISA8269-98-91 20:59:00 Test Item Value Reference Range Interpretation Comments Troponin-I (test code no gt See_Comment [Auto mated message] The = Troponin-I) system which g enerated this result transmit garrett reference range : <=0.40. The reference r ondina was not used to interpr et this result as cassie l/abnormal. [facility]CARDIAC HLOJNHW4739-18-63 20:59:00 Test Item Value Reference Range Interpretation Comments Total CK (test code = Total CK) 38 12-191 [facility]ZqmebovGBPOETKDDIZV3844-54-22 20:59:00 Test Item Value Reference Range Interpretation Comments AGAP (test code = AGAP) 9.7 10.0-20.0 [facility] CampusDnrtndmZJULPJIDGTMS0651-06-63 20:59:00 Test Item Value Reference Range Interpretation Comments B/C Ratio (test code = B/C Ratio) 11 1 6-25 [facility] HospitalTneopmeGODBCDEIRMNT8205-66-86 20:59:00 Test Item Value Reference Range Interpretation Comments A/G Ratio (test code = A/G Ratio) 0.6 1 0.7-1.6 [facility] HospitalLdenvwfSCSJJRTSZREZ5322-96-95 20:59:00 Test Item Value Reference Range Interpretation Comments Globulin (test code = Globulin) 4.2 2.7-4.2 [facility] HospitalHugvnflEKNAWYNEEHXG4965-74-43 20:59:00 Test Item Value Reference Range Interpretation Comments Albumin Lvl (test code = Albumin Lvl) 2.7 3.5-5.0 [facility] HospitalRztslmoATNLIVEPDONH1823-40-41 20:59:00 Test Item Value Reference Range Interpretation Comments Glucose Lvl (test code = Glucose Lvl) 98 70-99 [facility] HospitalMdccsokRALWCMSEFVXP1606-21-48 20:59:00 Test Item Value Reference Range Interpretation Comments CO2 (test code = CO2) 26 24-32 [facility] CampusUypbctqOQFIGHZWNZVA6151-20-75 20:59:00 Test Item Value Reference Range Interpretation Comments BUN (test code = BUN) 11 7-22 [facility] HospitalVzyorsmHEXFPUGNHZDP5617-39-07 20:59:00 Test Item Value Reference Range Interpretation Comments eGFR (test code = eGFR) 82 [facility] HospitalHcvxrscFRISHTTLOLFX1694-94-26 20:59:00 Test Item Value Reference Range Interpretation Comments AST (test code = AST) 6 See_Comment [Auto mated message] The system which ge nerated this result transmit garrett reference range : <=37. The reference range was not used to interpr et this result as cassie l/abnormal. [facility] HospitalEvrlvcuQRWOIOZOGOJG2150-14-71 20:59:00 Test Item Value Reference Range Interpretation Comments ALT (test code = ALT) 13 See_Comment [Auto mated message] The system which ge nerated this result transmit garrett reference range : <=65. The reference range was not used to interpr et this result as cassie l/abnormal. [facility] HospitalGvrhigwPXGTSTXXHCTQ4876-14-84 20:59:00 Test Item Value Reference Range Interpretation Comments Creatinine Lvl (test code = Creatinine 1.00 0.50-1.40 Lvl) [facility] HospitalVpiqricSUEONMDGMLAO4130-73-10 20:59:00 Test Item Value Reference Range Interpretation Comments Bili Total (test code = Bili Total) 0.1 0.2-1.3 [facility] HospitalHhblhqdHUCYKSDTWTLC5892-21-06 20:59:00 Test Item Value Reference Range Interpretation Comments Total Protein (test code = Total 6.9 6.4-8.4 Protein) [facility] HospitalIjgxiodATIXSZQOUPZT7819-31-30 20:59:00 Test Item Value Reference Range Interpretation Comments Calcium Lvl (test code = Calcium Lvl) 8.2 8.5-10.5 [facility] HospitalQosdzioLEVJJCCYRPSM3198-06-97 20:59:00 Test Item Value Reference Range Interpretation Comments Alk Phos (test code = Alk Phos) 122 39-136 [facility] HospitalPhgfrlrYVKVGUADLGFL0384-53-45 20:59:00 Test Item Value Reference Range Interpretation Comments Sodium Lvl (test code = Sodium Lvl) 145 135-145 [facility] HospitalYmpkcalSRDANWRQHPBS2914-40-84 20:59:00 Test Item Value Reference Range Interpretation Comments Chloride Lvl (test code = Chloride Lvl) 113 95-109 [facility] HospitalLsdupmzCZCNGVWHXNMB9240-08-49 20:59:00 Test Item Value Reference Range Interpretation Comments Potassium Lvl (test code = Potassium 3.7 3.5-5.1 Lvl) [facility]neMklumluKIZTKBMTFC4752-75-79 20:59:00 Test Item Value Reference Range Interpretation Comments PT (test code = PT) 13.3 s 12.0-14.7 [facility]neXdcrrpoMSIVQOYLIJ1450-70-21 20:59:00 Test Item Value Reference Range Interpretation Comments INR (test code = INR) 1.03 1 0.85-1.17 [facility] Cle[facility]neNzsezdeYXPRVIKVVS8331-29-13 20:59:00 Test Item Value Reference Range Interpretation Comments PTT (test code = PTT) 31.9 s 22.9-35.8 [facility] Cle[facility]neIpyvtdpDJGYMMNOQE4316-99-56 20:59:00 Test Item Value Reference Range Interpretation Comments MPV (test code = MPV) 8.1 7.4-10.4 [facility] Cle[facility]neZvflmsqGPXSLBQLFP9635-31-24 20:59:00 Test Item Value Reference Range Interpretation Comments MCHC (test code = MCHC) 30.8 32.0-36.0 [facility] Cle[facility]neUkapkokHWYXRQHLZD6760-45-72 20:59:00 Test Item Value Reference Range Interpretation Comments MCV (test code = MCV) 81.3 80.0-94.0 [facility]neNvdbfjpHGMMBPJUFH4903-71-50 20:59:00 Test Item Value Reference Range Interpretation Comments MCH (test code = MCH) 25.1 pg 27.0-31.0 [facility] CleburneAonnefzNCGZOVYCUT5501-86-46 20:59:00 Test Item Value Reference Range Interpretation Comments RDW (test code = RDW) 18.6 11.5-14.5 [facility] Cle[facility]neCqjzdyxOOBLGPIJFY0422-86-81 20:59:00 Test Item Value Reference Range Interpretation Comments RBC (test code = RBC) 3.52 4.70-6.10 [facility]neHgogilxOSVBDKOVMO4362-13-73 20:59:00 Test Item Value Reference Range Interpretation Comments Hgb (test code = Hgb) 8.8 14.0-18.0 [facility] CleburneUueiaksUJIHMDIHIP3929-25-52 20:59:00 Test Item Value Reference Range Interpretation Comments WBC (test code = WBC) 6.0 3.7-10.4 [facility] CleburneJnfbznpTQVIAROLHU1322-80-56 20:59:00 Test Item Value Reference Range Interpretation Comments Hct (test code = Hct) 28.6 42.0-54.0 [facility] CleburneHkefzcaQNNBEJRYZZ2407-41-97 20:59:00 Test Item Value Reference Range Interpretation Comments Platelet (test code = Platelet) 390 133-450 [facility] CleburneHiaxapoZDISSCCAYB7705-84-69 20:59:00 Test Item Value Reference Range Interpretation Comments Monocytes (test code = Monocytes) 10.1 2.0-12.0 [facility] CleburneTnyfxhyUWWTMJLDDA9179-54-53 20:59:00 Test Item Value Reference Range Interpretation Comments Lymphocytes (test code = Lymphocytes) 16.4 20.0-40.0 [facility] CleburneNijxsvpFAJTDSPYVF7780-46-75 20:59:00 Test Item Value Reference Range Interpretation Comments Anisocyte (test code = 1+ *ABN*(06/02/18 Anisocyte) 3:59 PM) [facility] CleburnePryeuppSREZVDFWKR7638-54-98 20:59:00 Test Item Value Reference Range Interpretation Comments Eosinophils # (test code 0.2 See_Comment [A utomated message] The = Eosinophils #) system whic h generated this result tra nsmitted reference range : <=0.5. The reference r ondina was not used to int erpret this result as normal/abnormal . [facility]burneOzdqvacIKPWEAAVTR0022-14-34 20:59:00 Test Item Value Reference Range Interpretation Comments Neutrophils # (test code = Neutrophils 4.1 1.5-8.1 #) [facility] CleburneHusxfasHEAHPWYALE6952-86-40 20:59:00 Test Item Value Reference Range Interpretation Comments Basophils (test code = 0.8 See_Comment [Aut omated message] The Basophils) system which ge nerated this result tra nsmitted reference range : <=1.0. The reference r ondina was not used to int erpret this result as normal/abnormal . [facility] CleburneDeasyouVCIKFXRZIH6760-24-38 20:59:00 Test Item Value Reference Range Interpretation Comments Eosinophils (test code = 4.0 See_Comment [A utomated message] The Eosinophils) system which ge nerated this result tra nsmitted reference range : <=4.0. The reference r ondina was not used to int erpret this result as normal/abnormal . [facility] CleburneYzfhwleVLLAWJEHFP6732-61-99 20:59:00 Test Item Value Reference Range Interpretation Comments Segs (test code = Segs) 68.7 45.0-75.0 [facility] CleburneTuuhjzrDSIHKPCFXP0377-40-65 20:59:00 Test Item Value Reference Range Interpretation Comments Hypochrom (test code = 2+ (06/02/18 3:59 PM) Hypochrom) [facility] CleburneEyonnggPKQYCPZPEK6391-14-22 20:59:00 Test Item Value Reference Range Interpretation Comments Large Plt (test code Moderate *ABN*(06/02/18 = Large Plt) 3:59 PM) [facility] CleburneWwbyrzjSYQCIYJLTV5386-71-68 20:59:00 Test Item Value Reference Range Interpretation Comments Lymphocytes # (test code = Lymphocytes 1.0 1.0-5.5 #) [facility] CleburneIfiwjdwPGEZSCXYZL3300-66-21 20:59:00 Test Item Value Reference Range Interpretation Comments Monocytes # (test code 0.6 See_Comment [Aut omated message] The = Monocytes #) system which generated this result tra nsmitted reference range : <=0.8. The reference r ondina was not used to int erpret this result as normal/abnormal . [facility] DMFSXVN9849-40-53 20:59:00 Test Item Value Reference Range Interpretation Comments BNP (test code = BNP) 454 [facility] CIUGITZ7295-53-34 20:59:00 Test Item Value Reference Range Interpretation Comments Troponin-I (test code = Troponin-I) no gt <=0.40 [facility] LHCNQLK9878-24-68 20:59:00 Test Item Value Reference Range Interpretation Comments Total CK (test code = Total CK) 38 12-191 [facility]NlqeqxnOGIHFREXKPEZ6786-76-85 20:59:00 Test Item Value Reference Range Interpretation Comments AGAP (test code = AGAP) 9.7 10.0-20.0 [facility] HospitalMfqypseVBVGTNWKETFB7569-18-58 20:59:00 Test Item Value Reference Range Interpretation Comments B/C Ratio (test code = B/C Ratio) 11 1 6-25 [facility] HospitalKovmvzfYBUJGOBKCXWG6855-09-95 20:59:00 Test Item Value Reference Range Interpretation Comments A/G Ratio (test code = A/G Ratio) 0.6 1 0.7-1.6 [facility] HospitalJhjluqaSZBBCVQVPLEK7869-93-00 20:59:00 Test Item Value Reference Range Interpretation Comments Globulin (test code = Globulin) 4.2 2.7-4.2 [facility] HospitalOkselpwSDQYGUOZQVDE9421-86-21 20:59:00 Test Item Value Reference Range Interpretation Comments Albumin Lvl (test code = Albumin Lvl) 2.7 3.5-5.0 [facility] HospitalIsgjkuyTZQOKMPIBSTZ0206-51-16 20:59:00 Test Item Value Reference Range Interpretation Comments Glucose Lvl (test code = Glucose Lvl) 98 70-99 [facility] HospitalDthjafjXFYJPFXOYIEI4171-02-86 20:59:00 Test Item Value Reference Range Interpretation Comments CO2 (test code = CO2) 26 24-32 [facility] HospitalEvlsdmvGKNTHDWHLLPW1318-23-14 20:59:00 Test Item Value Reference Range Interpretation Comments BUN (test code = BUN) 11 7-22 [facility] HospitalWrmcnysIHZPEBAIEORI8541-98-74 20:59:00 Test Item Value Reference Range Interpretation Comments eGFR (test code = eGFR) 82 [facility] HospitalZzyykjoOEQDTCRGHMLP4745-02-48 20:59:00 Test Item Value Reference Range Interpretation Comments AST (test code = AST) 6 <=37 [facility] HospitalJzirayaRZOGJQGIVRWR7164-11-86 20:59:00 Test Item Value Reference Range Interpretation Comments ALT (test code = ALT) 13 <=65 [facility] HospitalGscftzxALFDLHAKTXKE5812-63-65 20:59:00 Test Item Value Reference Range Interpretation Comments Creatinine Lvl (test code = Creatinine 1.00 0.50-1.40 Lvl) [facility] HospitalYbjptctMVELFDRLCYTR0324-81-45 20:59:00 Test Item Value Reference Range Interpretation Comments Bili Total (test code = Bili Total) 0.1 0.2-1.3 [facility] HospitalWepzgrwLYQVYWAKDJUJ4867-95-05 20:59:00 Test Item Value Reference Range Interpretation Comments Total Protein (test code = Total 6.9 6.4-8.4 Protein) [facility] HospitalRlyboynUHKSHEQCHKLT7880-42-17 20:59:00 Test Item Value Reference Range Interpretation Comments Calcium Lvl (test code = Calcium Lvl) 8.2 8.5-10.5 [facility] HospitalOqdoshjFMEXDALGPHQM1297-68-42 20:59:00 Test Item Value Reference Range Interpretation Comments Alk Phos (test code = Alk Phos) 122 39-136 [facility] HospitalDlklusaVZXRDEWHMBLB9059-59-74 20:59:00 Test Item Value Reference Range Interpretation Comments Sodium Lvl (test code = Sodium Lvl) 145 135-145 [facility] HospitalUpvhtmlDHQJHOGVXIGZ9459-53-37 20:59:00 Test Item Value Reference Range Interpretation Comments Chloride Lvl (test code = Chloride Lvl) 113 95-109 [facility] HospitalQlltjsdGIZGIVCYFNWC8919-07-07 20:59:00 Test Item Value Reference Range Interpretation Comments Potassium Lvl (test code = Potassium 3.7 3.5-5.1 Lvl) [facility]neZwkophmRQEUIPUXCL9018-54-25 20:59:00 Test Item Value Reference Range Interpretation Comments PT (test code = PT) 13.3 s 12.0-14.7 [facility]neDihwwntNCRFIUKRVS0360-88-07 20:59:00 Test Item Value Reference Range Interpretation Comments INR (test code = INR) 1.03 1 0.85-1.17 [facility]neRlbbpuzZPHTQHHDTJ8466-41-53 20:59:00 Test Item Value Reference Range Interpretation Comments PTT (test code = PTT) 31.9 s 22.9-35.8 [facility] CleburneWojimwkHXANMISQUV0940-94-89 20:59:00 Test Item Value Reference Range Interpretation Comments MPV (test code = MPV) 8.1 7.4-10.4 [facility]neLqoubbcQFHCZPQMQU4239-38-85 20:59:00 Test Item Value Reference Range Interpretation Comments MCHC (test code = MCHC) 30.8 32.0-36.0 [facility]neKwdaanuXFGTMRGWDO0354-23-38 20:59:00 Test Item Value Reference Range Interpretation Comments MCV (test code = MCV) 81.3 80.0-94.0 [facility] Cle[facility]neZhhwrxkFRYXJUFSJE1473-90-30 20:59:00 Test Item Value Reference Range Interpretation Comments MCH (test code = MCH) 25.1 pg 27.0-31.0 [facility] Cle[facility]neOqeonqpQXUPXNVLED3701-52-45 20:59:00 Test Item Value Reference Range Interpretation Comments RDW (test code = RDW) 18.6 11.5-14.5 [facility] Cle[facility]neLjknnjqPHLYLCGTKV3310-67-60 20:59:00 Test Item Value Reference Range Interpretation Comments RBC (test code = RBC) 3.52 4.70-6.10 [facility]neIdgfojvHVUCWKQCWX1402-05-49 20:59:00 Test Item Value Reference Range Interpretation Comments Hgb (test code = Hgb) 8.8 14.0-18.0 [facility]neMucgmfvCBJMWCLNAO3788-34-98 20:59:00 Test Item Value Reference Range Interpretation Comments WBC (test code = WBC) 6.0 3.7-10.4 [facility]neVuztcyzDPEOZZCSUY6467-01-05 20:59:00 Test Item Value Reference Range Interpretation Comments Hct (test code = Hct) 28.6 42.0-54.0 [place] 085099-03-31 20:59:00 Test Item Value Reference Range Interpretation Comments Platelet (test code = Platelet) 390 133-450 [facility]neVjskhjnLKJEMNVALS7054-06-74 20:59:00 Test Item Value Reference Range Interpretation Comments Monocytes (test code = Monocytes) 10.1 2.0-12.0 [facility]neXjjqxosWEZAXYQWNX8384-70-93 20:59:00 Test Item Value Reference Range Interpretation Comments Lymphocytes (test code = Lymphocytes) 16.4 20.0-40.0 [facility] Cle[facility]neVlejbonAFVDIHAWUE8650-96-40 20:59:00 Test Item Value Reference Range Interpretation Comments Anisocyte (test code = 1+ *ABN*(06/02/18 Anisocyte) 3:59 PM) [facility]neTxfrtkmCYGOGYMFHK1970-94-90 20:59:00 Test Item Value Reference Range Interpretation Comments Eosinophils # (test code = Eosinophils 0.2 <=0.5 #) [facility] Cle[facility]neHajwidjVTCSHRBWUS9571-84-75 20:59:00 Test Item Value Reference Range Interpretation Comments Neutrophils # (test code = Neutrophils 4.1 1.5-8.1 #) [facility]neCwyuofhZCMKYRASHH2293-30-76 20:59:00 Test Item Value Reference Range Interpretation Comments Basophils (test code = Basophils) 0.8 <=1.0 [facility] CleburneRruhqdhUNRRFALSNI2364-01-17 20:59:00 Test Item Value Reference Range Interpretation Comments Eosinophils (test code = Eosinophils) 4.0 <=4.0 [facility] CleburneJunexaiATLFEJHUYB4372-94-97 20:59:00 Test Item Value Reference Range Interpretation Comments Segs (test code = Segs) 68.7 45.0-75.0 [facility] CleburneBjoxilsBZDLEDFVPV5881-32-77 20:59:00 Test Item Value Reference Range Interpretation Comments Hypochrom (test code = 2+ (06/02/18 3:59 PM) Hypochrom) [facility]neRrggqkcUJPPMDLKPU5408-03-49 20:59:00 Test Item Value Reference Range Interpretation Comments Large Plt (test code Moderate *ABN*(06/02/18 = Large Plt) 3:59 PM) [facility]neGqdnhopSBHNODSQXZ1492-90-81 20:59:00 Test Item Value Reference Range Interpretation Comments Lymphocytes # (test code = Lymphocytes 1.0 1.0-5.5 #) [facility]neEzhgupmBSAYZIFMWI0199-36-47 20:59:00 Test Item Value Reference Range Interpretation Comments Monocytes # (test code = Monocytes #) 0.6 <=0.8 [facility] Cle[facility]neXqgcgauYITFPVKXBY6768-34-92 14:40:00 Test Item Value Reference Range Interpretation Comments Platelet (test code = Platelet) 233 133-450 [facility] Cle[facility]neKzjnrwkWLGHSRAGPD5325-37-25 14:40:00 Test Item Value Reference Range Interpretation Comments MPV (test code = MPV) 8.3 7.4-10.4 [facility]neVxfqjxnPCKGVRPIIA4870-27-09 14:40:00 Test Item Value Reference Range Interpretation Comments MCHC (test code = MCHC) 32.2 32.0-36.0 [facility]neYjqugfpLDTEPVOZAE1685-92-48 14:40:00 Test Item Value Reference Range Interpretation Comments RDW (test code = RDW) 19.0 11.5-14.5 [facility] Cle[facility]neFfqtmfoFLIPLCDYZT3865-35-02 14:40:00 Test Item Value Reference Range Interpretation Comments Hgb (test code = Hgb) 8.8 14.0-18.0 [facility]neHjjmhszLAAZARCYZW6355-66-84 14:40:00 Test Item Value Reference Range Interpretation Comments RBC (test code = RBC) 3.40 4.70-6.10 [facility]neYwpqthsEOBIKBEMWI2788-16-26 14:40:00 Test Item Value Reference Range Interpretation Comments MCV (test code = MCV) 80.1 80.0-94.0 [place] 085099-03-19 14:40:00 Test Item Value Reference Range Interpretation Comments MCH (test code = MCH) 25.8 pg 27.0-31.0 [facility]neMgwqndfEGHHKTWVKI7899-87-22 14:40:00 Test Item Value Reference Range Interpretation Comments Hct (test code = Hct) 27.3 42.0-54.0 [facility] CleburneLhgwickRXHNEWXZHJ5604-80-87 14:40:00 Test Item Value Reference Range Interpretation Comments WBC (test code = WBC) 7.3 3.7-10.4 [facility] CleburneAetlxltOWRLCMCBQK7358-58-03 14:40:00 Test Item Value Reference Range Interpretation Comments Basophils (test code = 1.3 See_Comment [Aut omated message] The Basophils) system which ge nerated this result tra nsmitted reference range : <=1.0. The reference r ondina was not used to int erpret this result as normal/abnormal . [facility]neKenrhmjXGQSHDOHMP5292-64-34 14:40:00 Test Item Value Reference Range Interpretation Comments Neutrophils # (test code = Neutrophils 4.6 1.5-8.1 #) [facility] Cle[facility]neNebuybhRWGHEKJOUA7928-00-34 14:40:00 Test Item Value Reference Range Interpretation Comments Eosinophils (test code = 7.5 See_Comment [A utomated message] The Eosinophils) system which ge nerated this result tra nsmitted reference range : <=4.0. The reference r ondina was not used to int erpret this result as normal/abnormal . [facility] CleburneIhtwpzeOUXKGRXQGN2880-07-13 14:40:00 Test Item Value Reference Range Interpretation Comments Monocytes (test code = Monocytes) 8.8 2.0-12.0 [facility] Cle[facility]neVennwxwJPCLNHTRHS0473-30-23 14:40:00 Test Item Value Reference Range Interpretation Comments Segs (test code = Segs) 63.4 45.0-75.0 [facility] CleburneDgutcnnNKOPQLWJZZ7205-64-14 14:40:00 Test Item Value Reference Range Interpretation Comments Lymphocytes (test code = Lymphocytes) 19.0 20.0-40.0 [facility]neAjztaygBHZOEYPCLX9314-86-33 14:40:00 Test Item Value Reference Range Interpretation Comments Eosinophils # (test code 0.5 See_Comment [A utomated message] The = Eosinophils #) system whic h generated this result tra nsmitted reference range : <=0.5. The reference r ondina was not used to int erpret this result as normal/abnormal . [facility] CleburneAvglerkVLESMPRBRM0894-78-49 14:40:00 Test Item Value Reference Range Interpretation Comments Basophils # (test code 0.1 See_Comment [Aut omated message] The = Basophils #) system which generated this result tra nsmitted reference range : <=0.2. The reference r ondina was not used to int erpret this result as normal/abnormal . [facility]neKcfmpehOBEVLOJOAW4020-46-19 14:40:00 Test Item Value Reference Range Interpretation Comments Monocytes # (test code 0.6 See_Comment [Aut omated message] The = Monocytes #) system which generated this result tra nsmitted reference range : <=0.8. The reference r ondina was not used to int erpret this result as normal/abnormal . [facility]neAqrvpvrOFNLQFRPMG9244-68-27 14:40:00 Test Item Value Reference Range Interpretation Comments Lymphocytes # (test code = Lymphocytes 1.4 1.0-5.5 #) [facility]nePwqnlacWXLFEOLGPM7741-35-61 14:40:00 Test Item Value Reference Range Interpretation Comments Platelet (test code = Platelet) 233 133-450 [facility] CleburneVhvzrxbSGEURLUTFH2607-78-16 14:40:00 Test Item Value Reference Range Interpretation Comments MPV (test code = MPV) 8.3 7.4-10.4 [facility] CleburneGlbotghNERGWZLMNZ5611-10-58 14:40:00 Test Item Value Reference Range Interpretation Comments MCHC (test code = MCHC) 32.2 32.0-36.0 [facility] CleburneViobfseIMVOQOEEMP5895-82-58 14:40:00 Test Item Value Reference Range Interpretation Comments RDW (test code = RDW) 19.0 11.5-14.5 [facility]neDidclpcHQZGYSIKRE8145-77-44 14:40:00 Test Item Value Reference Range Interpretation Comments Hgb (test code = Hgb) 8.8 14.0-18.0 [facility]neVjdpuflWRQQXDIXJZ7293-08-10 14:40:00 Test Item Value Reference Range Interpretation Comments RBC (test code = RBC) 3.40 4.70-6.10 [facility]neMedvkyaDJZGGWCMVI5776-26-99 14:40:00 Test Item Value Reference Range Interpretation Comments MCV (test code = MCV) 80.1 80.0-94.0 [facility]neFnzykdsBOCOHCEXKB1889-46-38 14:40:00 Test Item Value Reference Range Interpretation Comments MCH (test code = MCH) 25.8 pg 27.0-31.0 [facility] CleburneAkoszhrQRNWDSKLXW5177-61-09 14:40:00 Test Item Value Reference Range Interpretation Comments Hct (test code = Hct) 27.3 42.0-54.0 [facility] CleburneSbruviaFSYNRGVRBU8793-06-71 14:40:00 Test Item Value Reference Range Interpretation Comments WBC (test code = WBC) 7.3 3.7-10.4 [facility]neAhcnrwrWNTBNCJRWH0803-98-65 14:40:00 Test Item Value Reference Range Interpretation Comments Basophils (test code = 1.3 See_Comment [Aut omated message] The Basophils) system which ge nerated this result tra nsmitted reference range : <=1.0. The reference r ondina was not used to int erpret this result as normal/abnormal . [facility]neHpjgwmeDWDYHPBGML6986-24-20 14:40:00 Test Item Value Reference Range Interpretation Comments Neutrophils # (test code = Neutrophils 4.6 1.5-8.1 #) [facility]neGmrxmoxOMHYDZPDSI9768-58-22 14:40:00 Test Item Value Reference Range Interpretation Comments Eosinophils (test code = 7.5 See_Comment [A utomated message] The Eosinophils) system which ge nerated this result tra nsmitted reference range : <=4.0. The reference r ondina was not used to int erpret this result as normal/abnormal . [facility]neMperbulMKSZPNHWBM7113-19-28 14:40:00 Test Item Value Reference Range Interpretation Comments Monocytes (test code = Monocytes) 8.8 2.0-12.0 [facility]nePmzvibqPXPMFJUHBU6193-11-21 14:40:00 Test Item Value Reference Range Interpretation Comments Segs (test code = Segs) 63.4 45.0-75.0 [facility]neXgheoqiFGOXWAXWMU3017-87-46 14:40:00 Test Item Value Reference Range Interpretation Comments Lymphocytes (test code = Lymphocytes) 19.0 20.0-40.0 [facility] CleburneQkkgyqrKJZNELTEUC4572-81-91 14:40:00 Test Item Value Reference Range Interpretation Comments Eosinophils # (test code 0.5 See_Comment [A utomated message] The = Eosinophils #) system [facility] generated this result tra nsmitted reference range : <=0.5. The reference r ondina was not used to int erpret this result as normal/abnormal . [facility]neHdzxvnxJNXBZQVDQN7627-38-18 14:40:00 Test Item Value Reference Range Interpretation Comments Basophils # (test code 0.1 See_Comment [Aut omated message] The = Basophils #) system which generated this result tra nsmitted reference range : <=0.2. The reference r ondina was not used to int erpret this result as normal/abnormal . [facility] CleburneIladqtdHDOYBQVQYN1510-29-23 14:40:00 Test Item Value Reference Range Interpretation Comments Monocytes # (test code 0.6 See_Comment [Aut omated message] The = Monocytes #) system which generated this result tra nsmitted reference range : <=0.8. The reference r ondina was not used to int erpret this result as normal/abnormal . [facility] CleburneDrmkibpUSFALZOMBH8739-79-25 14:40:00 Test Item Value Reference Range Interpretation Comments Lymphocytes # (test code = Lymphocytes 1.4 1.0-5.5 #) [facility]neUbtfryvSJMKVHXRCD8990-87-06 14:40:00 Test Item Value Reference Range Interpretation Comments Platelet (test code = Platelet) 233 133-450 [facility] Cle[facility]neXmnxbubCUKZFDIQNJ7990-26-82 14:40:00 Test Item Value Reference Range Interpretation Comments MPV (test code = MPV) 8.3 7.4-10.4 [facility] CleburneJebhltoJGORCMWKLE9356-85-79 14:40:00 Test Item Value Reference Range Interpretation Comments MCHC (test code = MCHC) 32.2 32.0-36.0 [facility]burneLeeawalTAGXHUTIUA1229-67-92 14:40:00 Test Item Value Reference Range Interpretation Comments RDW (test code = RDW) 19.0 11.5-14.5 [facility]burneBjoxgvkVBSLARUFZE0539-80-88 14:40:00 Test Item Value Reference Range Interpretation Comments Hgb (test code = Hgb) 8.8 14.0-18.0 [facility] CleburneYfcmepsJBUCUVOPBF3967-30-88 14:40:00 Test Item Value Reference Range Interpretation Comments RBC (test code = RBC) 3.40 4.70-6.10 [facility] CleburneVscstaeEVJXKQKAGX4885-20-07 14:40:00 Test Item Value Reference Range Interpretation Comments MCV (test code = MCV) 80.1 80.0-94.0 [facility] CleburneXnkmlyhBTFLZZLHFQ2295-62-78 14:40:00 Test Item Value Reference Range Interpretation Comments MCH (test code = MCH) 25.8 pg 27.0-31.0 [facility] CleburneVabetocOTABTFOTQH3049-15-95 14:40:00 Test Item Value Reference Range Interpretation Comments Hct (test code = Hct) 27.3 42.0-54.0 [facility] CleburneKysjlumLFDCTFFGQW0699-10-13 14:40:00 Test Item Value Reference Range Interpretation Comments WBC (test code = WBC) 7.3 3.7-10.4 [facility] CleburneOtpexxkTNLOOOPEFD8906-82-20 14:40:00 Test Item Value Reference Range Interpretation Comments Basophils (test code = 1.3 See_Comment [Aut omated message] The Basophils) system which ge nerated this result tra nsmitted reference range : <=1.0. The reference r ondina was not used to int erpret this result as normal/abnormal . [facility]neObnpdbjECUYADPHDD1255-25-83 14:40:00 Test Item Value Reference Range Interpretation Comments Neutrophils # (test code = Neutrophils 4.6 1.5-8.1 #) [facility] CleburneLbruqhmXPZVCWCWRS4064-35-77 14:40:00 Test Item Value Reference Range Interpretation Comments Eosinophils (test code = 7.5 See_Comment [A utomated message] The Eosinophils) system which ge nerated this result tra nsmitted reference range : <=4.0. The reference r ondina was not used to int erpret this result as normal/abnormal . [facility] CleburneAyqvcjrRAIVUKLSZN3600-80-92 14:40:00 Test Item Value Reference Range Interpretation Comments Monocytes (test code = Monocytes) 8.8 2.0-12.0 [facility] CleburneNfwzukmUVBEGEPGNL8156-39-47 14:40:00 Test Item Value Reference Range Interpretation Comments Segs (test code = Segs) 63.4 45.0-75.0 [facility] CleburneZvebhraJFWVPASVPR0064-18-34 14:40:00 Test Item Value Reference Range Interpretation Comments Lymphocytes (test code = Lymphocytes) 19.0 20.0-40.0 [facility] CleburneUaiyhijHHZUJAVAMZ6400-53-28 14:40:00 Test Item Value Reference Range Interpretation Comments Eosinophils # (test code 0.5 See_Comment [A utomated message] The = Eosinophils #) system [facility] generated this result tra nsmitted reference range : <=0.5. The reference r ondina was not used to int erpret this result as normal/abnormal . [facility] CleburneMyzczscILULISVTMM5690-38-53 14:40:00 Test Item Value Reference Range Interpretation Comments Basophils # (test code 0.1 See_Comment [Aut omated message] The = Basophils #) system which generated this result tra nsmitted reference range : <=0.2. The reference r ondina was not used to int erpret this result as normal/abnormal . [facility] CleburneHmrgtvmXBKERQAHHM4928-95-61 14:40:00 Test Item Value Reference Range Interpretation Comments Monocytes # (test code 0.6 See_Comment [Aut omated message] The = Monocytes #) system which generated this result tra nsmitted reference range : <=0.8. The reference r ondina was not used to int erpret this result as normal/abnormal . [facility] CleburneMveekncFGHJBZMMEV3858-18-53 14:40:00 Test Item Value Reference Range Interpretation Comments Lymphocytes # (test code = Lymphocytes 1.4 1.0-5.5 #) [facility] CleburneEcdedemYQIOUHNKDY9642-23-03 14:40:00 Test Item Value Reference Range Interpretation Comments Platelet (test code = Platelet) 233 133-450 [facility] CleburneWlozkmqOEZEJXLEYU7953-53-88 14:40:00 Test Item Value Reference Range Interpretation Comments MPV (test code = MPV) 8.3 7.4-10.4 [facility] CleburneOgizxvpFRQCWKVKPE4695-88-36 14:40:00 Test Item Value Reference Range Interpretation Comments MCHC (test code = MCHC) 32.2 32.0-36.0 [facility] CleburneWnstlbgQHHKCWESHK2390-11-61 14:40:00 Test Item Value Reference Range Interpretation Comments RDW (test code = RDW) 19.0 11.5-14.5 [facility] CleburneEiuphmmOGUBRPDQLX5944-82-45 14:40:00 Test Item Value Reference Range Interpretation Comments Hgb (test code = Hgb) 8.8 14.0-18.0 [facility]burneHgmwvpdYQNJSLONCS2011-82-16 14:40:00 Test Item Value Reference Range Interpretation Comments RBC (test code = RBC) 3.40 4.70-6.10 [facility] CleburnePjvjmagKZBPKQSWCH6400-35-96 14:40:00 Test Item Value Reference Range Interpretation Comments MCV (test code = MCV) 80.1 80.0-94.0 [facility] CleburneRmjljooKRHNJGKBVI2066-15-37 14:40:00 Test Item Value Reference Range Interpretation Comments MCH (test code = MCH) 25.8 pg 27.0-31.0 [facility] CleburneSncvwcgUZSDGNEDIX9436-63-34 14:40:00 Test Item Value Reference Range Interpretation Comments Hct (test code = Hct) 27.3 42.0-54.0 [facility] CleburneJxqmjvkQBPPUJGKWC9958-71-29 14:40:00 Test Item Value Reference Range Interpretation Comments WBC (test code = WBC) 7.3 3.7-10.4 [facility] CleburneOjowpxsFRQQVZFPUN7315-28-84 14:40:00 Test Item Value Reference Range Interpretation Comments Basophils (test code = Basophils) 1.3 <=1.0 [id number] 14:40:00 Test Item Value Reference Range Interpretation Comments Neutrophils # (test code = Neutrophils 4.6 1.5-8.1 #) [facility]neJwvhvvfJYDVETYNGM6438-00-44 14:40:00 Test Item Value Reference Range Interpretation Comments Eosinophils (test code = Eosinophils) 7.5 <=4.0 [facility][id number] 14:40:00 Test Item Value Reference Range Interpretation Comments Monocytes (test code = Monocytes) 8.8 2.0-12.0 [facility]neVswzvrhFQHFJIPIVC1133-33-76 14:40:00 Test Item Value Reference Range Interpretation Comments Segs (test code = Segs) 63.4 45.0-75.0 [facility]neIkkpaqsMQCGXYOHPX7760-77-88 14:40:00 Test Item Value Reference Range Interpretation Comments Lymphocytes (test code = Lymphocytes) 19.0 20.0-40.0 [facility]neBowjhazAHQMGUIXQM5268-08-29 14:40:00 Test Item Value Reference Range Interpretation Comments Eosinophils # (test code = Eosinophils 0.5 <=0.5 #) [facility]neUxhnbtdAPYTQSFQXI2477-68-98 14:40:00 Test Item Value Reference Range Interpretation Comments Basophils # (test code = Basophils #) 0.1 <=0.2 [facility]neMoprwjeGFKRUHSPTC0149-12-92 14:40:00 Test Item Value Reference Range Interpretation Comments Monocytes # (test code = Monocytes #) 0.6 <=0.8 [facility]neGdismklJQPMCNGBMV0531-39-09 14:40:00 Test Item Value Reference Range Interpretation Comments Lymphocytes # (test code = Lymphocytes 1.4 1.0-5.5 #) [facility]neHcntounIWJNZKLOIW9778-03-64 14:40:00 Test Item Value Reference Range Interpretation Comments Platelet (test code = Platelet) 233 133-450 [facility]neTalcsalXOYOCHBSXR7647-50-86 14:40:00 Test Item Value Reference Range Interpretation Comments MPV (test code = MPV) 8.3 7.4-10.4 [facility][id number] 14:40:00 Test Item Value Reference Range Interpretation Comments MCHC (test code = MCHC) 32.2 32.0-36.0 [facility]neTxfzavcRWBZXKMBXN6546-41-12 14:40:00 Test Item Value Reference Range Interpretation Comments RDW (test code = RDW) 19.0 11.5-14.5 [facility][id number] 14:40:00 Test Item Value Reference Range Interpretation Comments Hgb (test code = Hgb) 8.8 14.0-18.0 [facility]neMgufuxcSUSTOXDPPL8508-77-02 14:40:00 Test Item Value Reference Range Interpretation Comments RBC (test code = RBC) 3.40 4.70-6.10 [facility]neKbuyonvFBOLFLTEMW2425-06-79 14:40:00 Test Item Value Reference Range Interpretation Comments MCV (test code = MCV) 80.1 80.0-94.0 [facility]neAkkyoldKGLMKUSOAP0787-14-63 14:40:00 Test Item Value Reference Range Interpretation Comments MCH (test code = MCH) 25.8 pg 27.0-31.0 [facility]neYiuledgAYICAYEATA9225-44-34 14:40:00 Test Item Value Reference Range Interpretation Comments Hct (test code = Hct) 27.3 42.0-54.0 [facility] Cle[facility]neYaxotxuNGYNSBZMGK8691-27-41 14:40:00 Test Item Value Reference Range Interpretation Comments WBC (test code = WBC) 7.3 3.7-10.4 [facility]neVyayyzrIDOPGHBHDE7334-61-51 14:40:00 Test Item Value Reference Range Interpretation Comments Basophils (test code = 1.3 See_Comment [Aut omated message] The Basophils) system which ge nerated this result tra nsmitted reference range : <=1.0. The reference r ondina was not used to int erpret this result as normal/abnormal . [facility]neCrekorlVAGKDAPWTQ0251-19-77 14:40:00 Test Item Value Reference Range Interpretation Comments Neutrophils # (test code = Neutrophils 4.6 1.5-8.1 #) [facility]neJttrpbvZAIGDZTLJB9923-77-08 14:40:00 Test Item Value Reference Range Interpretation Comments Eosinophils (test code = 7.5 See_Comment [A utomated message] The Eosinophils) system which ge nerated this result tra nsmitted reference range : <=4.0. The reference r ondina was not used to int erpret this result as normal/abnormal . [facility]neNobqossGFHSSAAGUM0095-84-00 14:40:00 Test Item Value Reference Range Interpretation Comments Monocytes (test code = Monocytes) 8.8 2.0-12.0 [facility]neZhpwrcpFWPPBCTVVT5811-99-20 14:40:00 Test Item Value Reference Range Interpretation Comments Segs (test code = Segs) 63.4 45.0-75.0 [facility]neXviftvqHDCEQEZICY6942-60-20 14:40:00 Test Item Value Reference Range Interpretation Comments Lymphocytes (test code = Lymphocytes) 19.0 20.0-40.0 [facility]neThjjeftDRMRYRLIUX0731-65-17 14:40:00 Test Item Value Reference Range Interpretation Comments Eosinophils # (test code 0.5 See_Comment [A utomated message] The = Eosinophils #) system whic h generated this result tra nsmitted reference range : <=0.5. The reference r ondina was not used to int erpret this result as normal/abnormal . [facility]neGjsompnFIRQSCAFSF2586-35-53 14:40:00 Test Item Value Reference Range Interpretation Comments Basophils # (test code 0.1 See_Comment [Aut omated message] The = Basophils #) system which generated this result tra nsmitted reference range : <=0.2. The reference r ondina was not used to int erpret this result as normal/abnormal . [facility]neUbmwvawDJVHPEAZGH1129-37-15 14:40:00 Test Item Value Reference Range Interpretation Comments Monocytes # (test code 0.6 See_Comment [Aut omated message] The = Monocytes #) system which generated this result tra nsmitted reference range : <=0.8. The reference r ondina was not used to int erpret this result as normal/abnormal . [facility]neHdazcwaQRKOXVMTKJ1434-60-49 14:40:00 Test Item Value Reference Range Interpretation Comments Lymphocytes # (test code = Lymphocytes 1.4 1.0-5.5 #) [facility]neRehxipzLKPZOOCOHK1317-03-79 14:40:00 Test Item Value Reference Range Interpretation Comments Platelet (test code = Platelet) 233 133-450 [facility]neLoxsgyiPXISXGXLJH6259-70-78 14:40:00 Test Item Value Reference Range Interpretation Comments MPV (test code = MPV) 8.3 7.4-10.4 [facility]neCgcrcafCHVATOYSCZ9982-35-99 14:40:00 Test Item Value Reference Range Interpretation Comments MCHC (test code = MCHC) 32.2 32.0-36.0 [facility]neCbctracLBJLCDPTIX9058-01-61 14:40:00 Test Item Value Reference Range Interpretation Comments RDW (test code = RDW) 19.0 11.5-14.5 [facility]neVcdpskpKZGSHUYDYY5311-36-72 14:40:00 Test Item Value Reference Range Interpretation Comments Hgb (test code = Hgb) 8.8 14.0-18.0 [facility]neJhimecaEYOCFCYBJE8877-89-18 14:40:00 Test Item Value Reference Range Interpretation Comments RBC (test code = RBC) 3.40 4.70-6.10 [facility]neBgpbgbdRKAGVHRJKI0880-68-79 14:40:00 Test Item Value Reference Range Interpretation Comments MCV (test code = MCV) 80.1 80.0-94.0 [facility]neKgybyckDMAADQMTQQ2876-67-81 14:40:00 Test Item Value Reference Range Interpretation Comments MCH (test code = MCH) 25.8 pg 27.0-31.0 [facility]neJidqmkoYBBSNVJWNJ8514-42-05 14:40:00 Test Item Value Reference Range Interpretation Comments Hct (test code = Hct) 27.3 42.0-54.0 [facility]neJjjuvjaDFHHFLPCVZ2841-89-47 14:40:00 Test Item Value Reference Range Interpretation Comments WBC (test code = WBC) 7.3 3.7-10.4 [facility]neSplwcfpWRXFVEDICY9278-91-37 14:40:00 Test Item Value Reference Range Interpretation Comments Basophils (test code = Basophils) 1.3 <=1.0 [facility]neRkftmrjZWTDQBBDVM7782-16-67 14:40:00 Test Item Value Reference Range Interpretation Comments Neutrophils # (test code = Neutrophils 4.6 1.5-8.1 #) [facility]neKlmwmgmENMGANOZQB5738-27-23 14:40:00 Test Item Value Reference Range Interpretation Comments Eosinophils (test code = Eosinophils) 7.5 <=4.0 [facility]neUlrnfshUSNSOAOKGY1589-00-68 14:40:00 Test Item Value Reference Range Interpretation Comments Monocytes (test code = Monocytes) 8.8 2.0-12.0 [facility]neJtvqptwFXMDOXLFMX7557-87-60 14:40:00 Test Item Value Reference Range Interpretation Comments Segs (test code = Segs) 63.4 45.0-75.0 [facility]neQpenowtAKKYVODKJK2810-44-59 14:40:00 Test Item Value Reference Range Interpretation Comments Lymphocytes (test code = Lymphocytes) 19.0 20.0-40.0 [facility]neSisxgvtROCAIKRXXR9045-39-22 14:40:00 Test Item Value Reference Range Interpretation Comments Eosinophils # (test code = Eosinophils 0.5 <=0.5 #) [facility]neLklzuftIUBUQEGLBC5527-04-62 14:40:00 Test Item Value Reference Range Interpretation Comments Basophils # (test code = Basophils #) 0.1 <=0.2 [facility]neAzrfqyaRDRJGUTSZK8929-04-52 14:40:00 Test Item Value Reference Range Interpretation Comments Monocytes # (test code = Monocytes #) 0.6 <=0.8 [facility]neAzojgmuAFNHXDPNEQ2654-67-86 14:40:00 Test Item Value Reference Range Interpretation Comments Lymphocytes # (test code = Lymphocytes 1.4 1.0-5.5 #) [facility]2019-03-19 11:30:00 Test Item Value Reference Range Interpretation Comments Calcium Lvl (test code = Calcium Lvl) 8.3 8.5-10.5 [facility]2019-03-19 11:30:00 Test Item Value Reference Range Interpretation Comments Potassium Lvl (test code = Potassium 4.3 3.5-5.1 Lvl) [facility]2019-03-19 11:30:00 Test Item Value Reference Range Interpretation Comments Sodium Lvl (test code = Sodium Lvl) 143 135-145 [facility]2019-03-19 11:30:00 Test Item Value Reference Range Interpretation Comments Chloride Lvl (test code = Chloride Lvl) 108 95-109 [facility]2019-03-19 11:30:00 Test Item Value Reference Range Interpretation Comments eGFR (test code = eGFR) 105 [facility]2019-03-19 11:30:00 Test Item Value Reference Range Interpretation Comments Creatinine Lvl (test code = Creatinine 0.66 0.50-1.40 Lvl) [facility]2019-03-19 11:30:00 Test Item Value Reference Range Interpretation Comments CO2 (test code = CO2) 29 24-32 [facility]2019-03-19 11:30:00 Test Item Value Reference Range Interpretation Comments BUN (test code = BUN) 14 - [facility]2019-03-19 11:30:00 Test Item Value Reference Range Interpretation Comments Glucose Lvl (test code = Glucose Lvl) 79 70-99 [facility]2019-03-19 11:30:00 Test Item Value Reference Range Interpretation Comments AGAP (test code = AGAP) 10.3 10.0-20.0 [place] [id number] 11:30:00 Test Item Value Reference Range Interpretation Comments Vanco Tr TND (test code = Vanco Tr TND) unk [place] [id number] 11:30:00 Test Item Value Reference Range Interpretation Comments Vanco Tr (test code = Vanco Tr) 12.8 [facility]2019-03-19 11:30:00 Test Item Value Reference Range Interpretation Comments Calcium Lvl (test code = Calcium Lvl) 8.3 8.5-10.5 [facility]2019-03-19 11:30:00 Test Item Value Reference Range Interpretation Comments Potassium Lvl (test code = Potassium 4.3 3.5-5.1 Lvl) [facility]2019-03-19 11:30:00 Test Item Value Reference Range Interpretation Comments Sodium Lvl (test code = Sodium Lvl) 143 135-145 [facility]2019-03-19 11:30:00 Test Item Value Reference Range Interpretation Comments Chloride Lvl (test code = Chloride Lvl) 108 95-109 [facility]2019-03-19 11:30:00 Test Item Value Reference Range Interpretation Comments eGFR (test code = eGFR) 105 [facility]2019-03-19 11:30:00 Test Item Value Reference Range Interpretation Comments Creatinine Lvl (test code = Creatinine 0.66 0.50-1.40 Lvl) [facility]2019-03-19 11:30:00 Test Item Value Reference Range Interpretation Comments CO2 (test code = CO2) 29 24-32 [facility]2019-03-19 11:30:00 Test Item Value Reference Range Interpretation Comments BUN (test code = BUN) 14 - [facility]2019-03-19 11:30:00 Test Item Value Reference Range Interpretation Comments Glucose Lvl (test code = Glucose Lvl) 79 70-99 [facility]2019-03-19 11:30:00 Test Item Value Reference Range Interpretation Comments AGAP (test code = AGAP) 10.3 10.0-20.0 [place] [id number] 11:30:00 Test Item Value Reference Range Interpretation Comments Vanco Tr TND (test code = Vanco Tr TND) unk [place] [id number] 11:30:00 Test Item Value Reference Range Interpretation Comments Vanco Tr (test code = Vanco Tr) 12.8 [facility]2019-03-19 11:30:00 Test Item Value Reference Range Interpretation Comments Calcium Lvl (test code = Calcium Lvl) 8.3 8.5-10.5 [facility]2019-03-19 11:30:00 Test Item Value Reference Range Interpretation Comments Potassium Lvl (test code = Potassium 4.3 3.5-5.1 Lvl) [facility]2019-03-19 11:30:00 Test Item Value Reference Range Interpretation Comments Sodium Lvl (test code = Sodium Lvl) 143 135-145 [facility]2019-03-19 11:30:00 Test Item Value Reference Range Interpretation Comments Chloride Lvl (test code = Chloride Lvl) 108 95-109 [facility]2019-03-19 11:30:00 Test Item Value Reference Range Interpretation Comments eGFR (test code = eGFR) 105 [facility]2019-03-19 11:30:00 Test Item Value Reference Range Interpretation Comments Creatinine Lvl (test code = Creatinine 0.66 0.50-1.40 Lvl) [facility]2019-03-19 11:30:00 Test Item Value Reference Range Interpretation Comments CO2 (test code = CO2) 29 24-32 [facility]2019-03-19 11:30:00 Test Item Value Reference Range Interpretation Comments BUN (test code = BUN) 14 7-22 [facility]2019-03-19 11:30:00 Test Item Value Reference Range Interpretation Comments Glucose Lvl (test code = Glucose Lvl) 79 70-99 [facility]2019-03-19 11:30:00 Test Item Value Reference Range Interpretation Comments AGAP (test code = AGAP) 10.3 10.0-20.0 [place] [id number] 11:30:00 Test Item Value Reference Range Interpretation Comments Vanco Tr TND (test code = Vanco Tr TND) unk [place] [id number] 11:30:00 Test Item Value Reference Range Interpretation Comments Vanco Tr (test code = Vanco Tr) 12.8 [facility]2019-03-19 11:30:00 Test Item Value Reference Range Interpretation Comments Calcium Lvl (test code = Calcium Lvl) 8.3 8.5-10.5 [facility]2019-03-19 11:30:00 Test Item Value Reference Range Interpretation Comments Potassium Lvl (test code = Potassium 4.3 3.5-5.1 Lvl) [facility]2019-03-19 11:30:00 Test Item Value Reference Range Interpretation Comments Sodium Lvl (test code = Sodium Lvl) 143 135-145 [facility]2019-03-19 11:30:00 Test Item Value Reference Range Interpretation Comments Chloride Lvl (test code = Chloride Lvl) 108 95-109 [facility]2019-03-19 11:30:00 Test Item Value Reference Range Interpretation Comments eGFR (test code = eGFR) 105 [facility]2019-03-19 11:30:00 Test Item Value Reference Range Interpretation Comments Creatinine Lvl (test code = Creatinine 0.66 0.50-1.40 Lvl) [facility]2019-03-19 11:30:00 Test Item Value Reference Range Interpretation Comments CO2 (test code = CO2) 29 24-32 [facility]2019-03-19 11:30:00 Test Item Value Reference Range Interpretation Comments BUN (test code = BUN) 14 7-22 [facility]2019-03-19 11:30:00 Test Item Value Reference Range Interpretation Comments Glucose Lvl (test code = Glucose Lvl) 79 70-99 [facility]2019-03-19 11:30:00 Test Item Value Reference Range Interpretation Comments AGAP (test code = AGAP) 10.3 10.0-20.0 [place] [id number] 11:30:00 Test Item Value Reference Range Interpretation Comments Vanco Tr TND (test code = Vanco Tr TND) unk [place] [id number] 11:30:00 Test Item Value Reference Range Interpretation Comments Vanco Tr (test code = Vanco Tr) 12.8 [facility]2019-03-19 11:30:00 Test Item Value Reference Range Interpretation Comments Calcium Lvl (test code = Calcium Lvl) 8.3 8.5-10.5 [facility]2019-03-19 11:30:00 Test Item Value Reference Range Interpretation Comments Potassium Lvl (test code = Potassium 4.3 3.5-5.1 Lvl) [facility]2019-03-19 11:30:00 Test Item Value Reference Range Interpretation Comments Sodium Lvl (test code = Sodium Lvl) 143 135-145 [facility]2019-03-19 11:30:00 Test Item Value Reference Range Interpretation Comments Chloride Lvl (test code = Chloride Lvl) 108 95-109 [facility]2019-03-19 11:30:00 Test Item Value Reference Range Interpretation Comments eGFR (test code = eGFR) 105 [facility]2019-03-19 11:30:00 Test Item Value Reference Range Interpretation Comments Creatinine Lvl (test code = Creatinine 0.66 0.50-1.40 Lvl) [facility]2019-03-19 11:30:00 Test Item Value Reference Range Interpretation Comments CO2 (test code = CO2) 29 24-32 [facility]2019-03-19 11:30:00 Test Item Value Reference Range Interpretation Comments BUN (test code = BUN) 14 7-22 [facility]2019-03-19 11:30:00 Test Item Value Reference Range Interpretation Comments Glucose Lvl (test code = Glucose Lvl) 79 70-99 [facility]2019-03-19 11:30:00 Test Item Value Reference Range Interpretation Comments AGAP (test code = AGAP) 10.3 10.0-20.0 [place] [id number] 11:30:00 Test Item Value Reference Range Interpretation Comments Vanco Tr TND (test code = Vanco Tr TND) unk [place] [id number] 11:30:00 Test Item Value Reference Range Interpretation Comments Vanco Tr (test code = Vanco Tr) 12.8 [facility]2019-03-19 11:30:00 Test Item Value Reference Range Interpretation Comments Calcium Lvl (test code = Calcium Lvl) 8.3 8.5-10.5 [facility]2019-03-19 11:30:00 Test Item Value Reference Range Interpretation Comments Potassium Lvl (test code = Potassium 4.3 3.5-5.1 Lvl) [facility]2019-03-19 11:30:00 Test Item Value Reference Range Interpretation Comments Sodium Lvl (test code = Sodium Lvl) 143 135-145 [facility]2019-03-19 11:30:00 Test Item Value Reference Range Interpretation Comments Chloride Lvl (test code = Chloride Lvl) 108 95-109 [facility]2019-03-19 11:30:00 Test Item Value Reference Range Interpretation Comments eGFR (test code = eGFR) 105 [facility]2019-03-19 11:30:00 Test Item Value Reference Range Interpretation Comments Creatinine Lvl (test code = Creatinine 0.66 0.50-1.40 Lvl) [facility]2019-03-19 11:30:00 Test Item Value Reference Range Interpretation Comments CO2 (test code = CO2) 29 24-32 [facility]2019-03-19 11:30:00 Test Item Value Reference Range Interpretation Comments BUN (test code = BUN) 14 7-22 [facility]2019-03-19 11:30:00 Test Item Value Reference Range Interpretation Comments Glucose Lvl (test code = Glucose Lvl) 79 70-99 [facility]2019-03-19 11:30:00 Test Item Value Reference Range Interpretation Comments AGAP (test code = AGAP) 10.3 10.0-20.0 [place] [id number] 11:30:00 Test Item Value Reference Range Interpretation Comments Vanco Tr TND (test code = Vanco Tr TND) unk [place] [id number] 11:30:00 Test Item Value Reference Range Interpretation Comments Vanco Tr (test code = Vanco Tr) 12.8 [facility] [employer] VIdeokeannCARThe Luxe NomadAC [id number] 17:35:00 Test Item Value Reference Range Interpretation Comments Troponin-I (test code no gt See_Comment [Auto mated message] The = Troponin-I) system which g enerated this result transmit garrett reference range : <=0.40. The reference r ondina was not used to interpr et this result as cassie l/abnormal. [facility] IsmoleCARDIP[employer]res [id number] 17:35:00 Test Item Value Reference Range Interpretation Comments Total CK (test code = Total CK) 33 [facility] [employer] [id number] 17:35:00 Test Item Value Reference Range Interpretation Comments Troponin-I (test code no gt See_Comment [Auto mated message] The = Troponin-I) system which g enerated this result transmit garrett reference range : <=0.40. The reference r ondina was not used to interpr et this result as cassie l/abnormal. [facility] [employer] [id number] 17:35:00 Test Item Value Reference Range Interpretation Comments Total CK (test code = Total CK) 33 [facility] [employer]2019-03-18 17:35:00 Test Item Value Reference Range Interpretation Comments Troponin-I (test code no gt See_Comment [Auto mated message] The = Troponin-I) system which g enerated this result transmit garrett reference range : <=0.40. The reference r ondina was not used to interpr et this result as cassie l/abnormal. [facility] IsmoleCARDIAC [id number] 17:35:00 Test Item Value Reference Range Interpretation Comments Total CK (test code = Total CK) 33 [facility] [employer] [id number] 17:35:00 Test Item Value Reference Range Interpretation Comments Troponin-I (test code = Troponin-I) no gt <=0.40 [facility] [employer] VIdeokeannCARSilent Edge [id number] 17:35:00 Test Item Value Reference Range Interpretation Comments Total CK (test code = Total CK) 33 [facility] ContractuallyAC [id number] 17:35:00 Test Item Value Reference Range Interpretation Comments Troponin-I (test code no gt See_Comment [Auto mated message] The = Troponin-I) system which g enerated this result transmit garrett reference range : <=0.40. The reference r ondina was not used to interpr et this result as cassie l/abnormal. [facility] [employer]2019-03-18 17:35:00 Test Item Value Reference Range Interpretation Comments Total CK (test code = Total CK) 33 [facility] [place]2019-03-18 17:35:00 Test Item Value Reference Range Interpretation Comments Troponin-I (test code = Troponin-I) no gt <=0.40 [facility] [place]2019-03-18 17:35:00 Test Item Value Reference Range Interpretation Comments Total CK (test code = Total CK) 33 [facility]2019-03-18 12:45:00 Test Item Value Reference Range Interpretation Comments Troponin-I (test code no gt See_Comment [Auto mated message] The = Troponin-I) system which g enerated this result transmit garrett reference range : <=0.40. The reference r ondina was not used to interpr et this result as cassie l/abnormal. [facility] [place]2019-03-18 12:45:00 Test Item Value Reference Range Interpretation Comments Total CK (test code = Total CK) 33 [facility]2019-03-18 12:45:00 Test Item Value Reference Range Interpretation Comments Troponin-I (test code no gt See_Comment [Auto mated message] The = Troponin-I) system which g enerated this result transmit garrett reference range : <=0.40. The reference r ondina was not used to interpr et this result as cassie l/abnormal. [facility] [place]2019-03-18 12:45:00 Test Item Value Reference Range Interpretation Comments Total CK (test code = Total CK) 33 [facility] [place]2019-03-18 12:45:00 Test Item Value Reference Range Interpretation Comments Troponin-I (test code no gt See_Comment [Auto mated message] The = Troponin-I) system which g enerated this result transmit garrett reference range : <=0.40. The reference r ondina was not used to interpr et this result as cassie l/abnormal. [facility] ShowMe VIdeokeannCARDIAC [id number] 12:45:00 Test Item Value Reference Range Interpretation Comments Total CK (test code = Total CK) 33 [facility] ContractuallyAC [id number] 12:45:00 Test Item Value Reference Range Interpretation Comments Troponin-I (test code = Troponin-I) no gt <=0.40 [facility] ShowMe VIdeokeannSterraClimbAC [id number] 12:45:00 Test Item Value Reference Range Interpretation Comments Total CK (test code = Total CK) 33 [facility] ContractuallyAC [id number] 12:45:00 Test Item Value Reference Range Interpretation Comments Troponin-I (test code no gt See_Comment [Auto mated message] The = Troponin-I) system which g enerated this result transmit garrett reference range : <=0.40. The reference r ondina was not used to interpr et this result as cassie l/abnormal. [facility] [employer] [id number] 12:45:00 Test Item Value Reference Range Interpretation Comments Total CK (test code = Total CK) 33 [facility] ContractuallyAC [id number] 12:45:00 Test Item Value Reference Range Interpretation Comments Troponin-I (test code = Troponin-I) no gt <=0.40 [facility] [employer] [id number] 12:45:00 Test Item Value Reference Range Interpretation Comments Total CK (test code = Total CK) 33 [facility] KzsyhheLDYMSDBMPNLS8659-06-11 06:11:00 Test Item Value Reference Range Interpretation Comments AGAP (test code = AGAP) 9.1 10.0-20.0 [facility] XwpuycdBINXKUCIEAZC7859-80-07 06:11:00 Test Item Value Reference Range Interpretation Comments Sodium Lvl (test code = Sodium Lvl) 144 135-145 [facility]wkpkpqHGMQBMWIGKWE3952-59-81 06:11:00 Test Item Value Reference Range Interpretation Comments Chloride Lvl (test code = Chloride Lvl) 108 95-109 [facility] DallasUudgcleZKGHYCENBRND9228-70-48 06:11:00 Test Item Value Reference Range Interpretation Comments Potassium Lvl (test code = Potassium 4.1 3.5-5.1 Lvl) [facility]KzhhclfCYGZSLONGXNY9089-57-34 06:11:00 Test Item Value Reference Range Interpretation Comments CO2 (test code = CO2) 31 24-32 [facility] HospitalXjttzvdUMXUOIWXSQZM1970-56-98 06:11:00 Test Item Value Reference Range Interpretation Comments BUN (test code = BUN) 15 7-22 [facility] HospitalTisinuyXMMOOORFHQOK8904-47-39 06:11:00 Test Item Value Reference Range Interpretation Comments Glucose Lvl (test code = Glucose Lvl) 96 70-99 [facility] HospitalFwyxyvhAJPHGWYHEJOC5153-01-15 06:11:00 Test Item Value Reference Range Interpretation Comments Creatinine Lvl (test code = Creatinine 0.72 0.50-1.40 Lvl) [facility] HospitalQxezvrxPOYAYLUSBKRH9587-75-08 06:11:00 Test Item Value Reference Range Interpretation Comments eGFR (test code = eGFR) 102 [facility] HospitalAvtyshqYHSIAKIKMQAJ5389-80-46 06:11:00 Test Item Value Reference Range Interpretation Comments Calcium Lvl (test code = Calcium Lvl) 8.3 8.5-10.5 [facility]neRjmdesnKKMLECNRCV3770-07-95 06:11:00 Test Item Value Reference Range Interpretation Comments MPV (test code = MPV) 8.0 7.4-10.4 [facility] Cle[facility]neUfkyireYRCIRWZWKP2135-92-26 06:11:00 Test Item Value Reference Range Interpretation Comments Platelet (test code = Platelet) 217 133-450 [facility] Cle[facility]neQsovcdkICYFVMNBDT6340-04-83 06:11:00 Test Item Value Reference Range Interpretation Comments RDW (test code = RDW) 18.6 11.5-14.5 [facility] Cle[facility]neGlyyyabQSJRQDQDVQ8148-32-63 06:11:00 Test Item Value Reference Range Interpretation Comments MCH (test code = MCH) 26.0 pg 27.0-31.0 [facility] CleburneNzjptjnDMQDOYOPGX1972-72-94 06:11:00 Test Item Value Reference Range Interpretation Comments MCV (test code = MCV) 81.5 80.0-94.0 [facility] CleburneZfiyojeQBBOUFDYUC2470-41-58 06:11:00 Test Item Value Reference Range Interpretation Comments MCHC (test code = MCHC) 31.9 32.0-36.0 [facility] CleburneOeagsykJGMQHEVWER7426-74-55 06:11:00 Test Item Value Reference Range Interpretation Comments RBC (test code = RBC) 3.16 4.70-6.10 [facility] CleburneJabyoiuLEHJDLOMLS7291-41-41 06:11:00 Test Item Value Reference Range Interpretation Comments Hct (test code = Hct) 25.8 42.0-54.0 [facility] CleburneLckrfgnYMDRKPJLFN2972-69-38 06:11:00 Test Item Value Reference Range Interpretation Comments Hgb (test code = Hgb) 8.2 14.0-18.0 [facility] CleburneTislvtkZKHEFOAQBN5698-77-07 06:11:00 Test Item Value Reference Range Interpretation Comments WBC (test code = WBC) 7.5 3.7-10.4 [facility] CleburneCbbfbozNNWUWQAFSF7583-93-68 06:11:00 Test Item Value Reference Range Interpretation Comments Monocytes # (test code 0.7 See_Comment [Aut omated message] The = Monocytes #) system which generated this result tra nsmitted reference range : <=0.8. The reference r ondina was not used to int erpret this result as normal/abnormal . [facility] CleburneHcghwjjHAICTQLNEI0165-37-21 06:11:00 Test Item Value Reference Range Interpretation Comments Basophils # (test code 0.1 See_Comment [Aut omated message] The = Basophils #) system which generated this result tra nsmitted reference range : <=0.2. The reference r ondina was not used to int erpret this result as normal/abnormal . [facility] CleburneRbritudXMKIOHSENC5430-66-60 06:11:00 Test Item Value Reference Range Interpretation Comments Eosinophils # (test code 0.4 See_Comment [A utomated message] The = Eosinophils #) system whic h generated this result tra nsmitted reference range : <=0.5. The reference r ondina was not used to int erpret this result as normal/abnormal . [facility] CleburneYfjgoshOEIXPYNEOH0573-96-41 06:11:00 Test Item Value Reference Range Interpretation Comments Lymphocytes # (test code = Lymphocytes 1.6 1.0-5.5 #) [facility] Cle[facility]neEjfykhvHMXCTEOXFC7283-66-92 06:11:00 Test Item Value Reference Range Interpretation Comments Neutrophils # (test code = Neutrophils 4.8 1.5-8.1 #) [facility] CleburneMqpmiufDRGFBNQXSG0240-86-06 06:11:00 Test Item Value Reference Range Interpretation Comments Basophils (test code = 1.1 See_Comment [Aut omated message] The Basophils) system which ge nerated this result tra nsmitted reference range : <=1.0. The reference r ondina was not used to int erpret this result as normal/abnormal . [facility] CleburneVwlauwuFWYKIJVMBY9229-99-70 06:11:00 Test Item Value Reference Range Interpretation Comments Eosinophils (test code = 5.2 See_Comment [A utomated message] The Eosinophils) system which ge nerated this result tra nsmitted reference range : <=4.0. The reference r ondina was not used to int erpret this result as normal/abnormal . [facility] CleburneVakvlwcLMJHUUGDEL7372-81-95 06:11:00 Test Item Value Reference Range Interpretation Comments Monocytes (test code = Monocytes) 9.1 2.0-12.0 [facility] CleburneRurrzurUGPUCKIZDU1894-37-34 06:11:00 Test Item Value Reference Range Interpretation Comments Lymphocytes (test code = Lymphocytes) 21.2 20.0-40.0 [facility] CleburneFuljhjlBKPWBSQFOL1126-95-55 06:11:00 Test Item Value Reference Range Interpretation Comments Segs (test code = Segs) 63.4 45.0-75.0 [place] [id number] 06:11:00 Test Item Value Reference Range Interpretation Comments Vanco Tr TND (test code = Vanco Tr 0030 1 TND) [place] [id number] 06:11:00 Test Item Value Reference Range Interpretation Comments Vanco Tr (test code = Vanco Tr) 7.3 [facility] HospitalNcmmcgaDQLGHDIRHBQB9819-71-77 06:11:00 Test Item Value Reference Range Interpretation Comments AGAP (test code = AGAP) 9.1 10.0-20.0 [facility] HospitalFdghjkiTARNDLKLBLNO2812-84-86 06:11:00 Test Item Value Reference Range Interpretation Comments Sodium Lvl (test code = Sodium Lvl) 144 135-145 [facility] HospitalBnmczhkXWPADMOLBCIQ6162-08-35 06:11:00 Test Item Value Reference Range Interpretation Comments Chloride Lvl (test code = Chloride Lvl) 108 95-109 [facility] HospitalQrkdyelXQGGLWSRXOMR4781-15-50 06:11:00 Test Item Value Reference Range Interpretation Comments Potassium Lvl (test code = Potassium 4.1 3.5-5.1 Lvl) [facility] HospitalXzhngrkCSGJDHJVSHQY0948-86-84 06:11:00 Test Item Value Reference Range Interpretation Comments CO2 (test code = CO2) 31 24-32 [facility] HospitalWhhtyoxKMWTBNDJZFYY8482-27-68 06:11:00 Test Item Value Reference Range Interpretation Comments BUN (test code = BUN) 15 7-22 [facility] HospitalImwdqcoLGYBYANCEHVI2285-11-16 06:11:00 Test Item Value Reference Range Interpretation Comments Glucose Lvl (test code = Glucose Lvl) 96 70-99 [facility] HospitalOslgejzXQFXFSOWUXSQ7765-39-95 06:11:00 Test Item Value Reference Range Interpretation Comments Creatinine Lvl (test code = Creatinine 0.72 0.50-1.40 Lvl) [facility] HospitalJnaqhqwGFRPAMPOXKEA4858-87-32 06:11:00 Test Item Value Reference Range Interpretation Comments eGFR (test code = eGFR) 102 [facility] HospitalVobjtgxCVKGAICHYOQV6579-34-93 06:11:00 Test Item Value Reference Range Interpretation Comments Calcium Lvl (test code = Calcium Lvl) 8.3 8.5-10.5 [facility] Cle[facility]neYxvzgbaQKHWDIUVWN4801-57-18 06:11:00 Test Item Value Reference Range Interpretation Comments MPV (test code = MPV) 8.0 7.4-10.4 [facility] Cle[facility]neAigrpggBGSWASZCRI9007-82-37 06:11:00 Test Item Value Reference Range Interpretation Comments Platelet (test code = Platelet) 217 133-450 [facility] CleburneXhaozraLDHWGISWRD0222-05-91 06:11:00 Test Item Value Reference Range Interpretation Comments RDW (test code = RDW) 18.6 11.5-14.5 [facility] CleburneZcqlftaDSJKCJEIET8320-36-76 06:11:00 Test Item Value Reference Range Interpretation Comments MCH (test code = MCH) 26.0 pg 27.0-31.0 [facility] CleburnePgmayieYFVVOOSXRU5767-28-96 06:11:00 Test Item Value Reference Range Interpretation Comments MCV (test code = MCV) 81.5 80.0-94.0 [facility] CleburneEqsjxugKRKFXUGHUX8782-74-04 06:11:00 Test Item Value Reference Range Interpretation Comments MCHC (test code = MCHC) 31.9 32.0-36.0 [facility] CleburneSeibriuGTTMMTXEGA7102-51-73 06:11:00 Test Item Value Reference Range Interpretation Comments RBC (test code = RBC) 3.16 4.70-6.10 [facility] Cle[facility]neOtkqlkeNPUDHNANDM8441-18-68 06:11:00 Test Item Value Reference Range Interpretation Comments Hct (test code = Hct) 25.8 42.0-54.0 [place] 085099-03-18 06:11:00 Test Item Value Reference Range Interpretation Comments Hgb (test code = Hgb) 8.2 14.0-18.0 [facility] Cle[facility]neWrbovveIYIEXQRVPV3814-20-98 06:11:00 Test Item Value Reference Range Interpretation Comments WBC (test code = WBC) 7.5 3.7-10.4 [facility]neEeskkumOCAAAIOJMF8563-93-84 06:11:00 Test Item Value Reference Range Interpretation Comments Monocytes # (test code 0.7 See_Comment [Aut omated message] The = Monocytes #) system which generated this result tra nsmitted reference range : <=0.8. The reference r ondina was not used to int erpret this result as normal/abnormal . [facility] CleburneJmlbgkhQAOFYHQYKF5020-57-45 06:11:00 Test Item Value Reference Range Interpretation Comments Basophils # (test code 0.1 See_Comment [Aut omated message] The = Basophils #) system which generated this result tra nsmitted reference range : <=0.2. The reference r ondina was not used to int erpret this result as normal/abnormal . [facility] CleburneRlmeosdAEZCBJSRVF4760-41-34 06:11:00 Test Item Value Reference Range Interpretation Comments Eosinophils # (test code 0.4 See_Comment [A utomated message] The = Eosinophils #) system whic h generated this result tra nsmitted reference range : <=0.5. The reference r ondina was not used to int erpret this result as normal/abnormal . [facility] CleburneHjvclmnDAAVWKMTUP8251-55-31 06:11:00 Test Item Value Reference Range Interpretation Comments Lymphocytes # (test code = Lymphocytes 1.6 1.0-5.5 #) [facility] CleburneJdyaageSKVPMFEJYJ3242-55-19 06:11:00 Test Item Value Reference Range Interpretation Comments Neutrophils # (test code = Neutrophils 4.8 1.5-8.1 #) [facility] CleburneWehzlbcPODBWHNFPG1660-89-30 06:11:00 Test Item Value Reference Range Interpretation Comments Basophils (test code = 1.1 See_Comment [Aut omated message] The Basophils) system which ge nerated this result tra nsmitted reference range : <=1.0. The reference r ondina was not used to int erpret this result as normal/abnormal . [facility] Cle[facility]neSusgmtbIKWOCAQPTA3384-59-11 06:11:00 Test Item Value Reference Range Interpretation Comments Eosinophils (test code = 5.2 See_Comment [A utomated message] The Eosinophils) system which ge nerated this result tra nsmitted reference range : <=4.0. The reference r ondina was not used to int erpret this result as normal/abnormal . [facility] CleburneJteflwtMFRAHXDBZR7266-47-56 06:11:00 Test Item Value Reference Range Interpretation Comments Monocytes (test code = Monocytes) 9.1 2.0-12.0 [facility] CleburneTjifogrAERQEWJHDI0514-50-40 06:11:00 Test Item Value Reference Range Interpretation Comments Lymphocytes (test code = Lymphocytes) 21.2 20.0-40.0 [facility] CleburneIcexsmdBNGFHFDAKC9258-60-81 06:11:00 Test Item Value Reference Range Interpretation Comments Segs (test code = Segs) 63.4 45.0-75.0 [place] [id number] 06:11:00 Test Item Value Reference Range Interpretation Comments Vanco Tr TND (test code = Vanco Tr 0030 1 TND) [place] [id number] 06:11:00 Test Item Value Reference Range Interpretation Comments Vanco Tr (test code = Vanco Tr) 7.3 [facility] HospitalMazlrcbCDCHPQNVUZRQ2684-60-85 06:11:00 Test Item Value Reference Range Interpretation Comments AGAP (test code = AGAP) 9.1 10.0-20.0 [facility] HospitalDlaffrlHYOODTFTVRYR7218-39-29 06:11:00 Test Item Value Reference Range Interpretation Comments Sodium Lvl (test code = Sodium Lvl) 144 135-145 [facility] HospitalNglloqhEAACDPOSLJCI1103-79-78 06:11:00 Test Item Value Reference Range Interpretation Comments Chloride Lvl (test code = Chloride Lvl) 108 95-109 [facility] HospitalWfhoxmfGZMDCMYBSZSB3695-00-11 06:11:00 Test Item Value Reference Range Interpretation Comments Potassium Lvl (test code = Potassium 4.1 3.5-5.1 Lvl) [facility] HospitalCnfhsoyYPTDYGAQENRN8266-80-14 06:11:00 Test Item Value Reference Range Interpretation Comments CO2 (test code = CO2) 31 24-32 [facility] HospitalDmldlupUWYQAGEAPLQQ0609-14-98 06:11:00 Test Item Value Reference Range Interpretation Comments BUN (test code = BUN) 15 7-22 [facility] HospitalBbnrwypZPYEYNKNGLSQ1167-99-62 06:11:00 Test Item Value Reference Range Interpretation Comments Glucose Lvl (test code = Glucose Lvl) 96 70-99 [facility] HospitalGhajjlvUDTQDCTURRUE6737-76-29 06:11:00 Test Item Value Reference Range Interpretation Comments Creatinine Lvl (test code = Creatinine 0.72 0.50-1.40 Lvl) [facility] HospitalVtwiohwBTUZSLCUWESK1960-26-70 06:11:00 Test Item Value Reference Range Interpretation Comments eGFR (test code = eGFR) 102 [facility] HospitalLofbpctIEWBYEAYQIXK5423-31-87 06:11:00 Test Item Value Reference Range Interpretation Comments Calcium Lvl (test code = Calcium Lvl) 8.3 8.5-10.5 [facility] CleburneNhatmguUMALNEYXVB8673-23-63 06:11:00 Test Item Value Reference Range Interpretation Comments MPV (test code = MPV) 8.0 7.4-10.4 [facility] CleburneMwjljtxCTRFMOFIJC8950-17-38 06:11:00 Test Item Value Reference Range Interpretation Comments Platelet (test code = Platelet) 217 133-450 [facility] CleburneFhxksntDMZHHKBUFV0326-39-45 06:11:00 Test Item Value Reference Range Interpretation Comments RDW (test code = RDW) 18.6 11.5-14.5 [facility] CleburneUerekssLUMKZENZSH3250-59-78 06:11:00 Test Item Value Reference Range Interpretation Comments MCH (test code = MCH) 26.0 pg 27.0-31.0 [facility] Cle[facility]neKfohkzcOJCXPCWBCB8357-76-78 06:11:00 Test Item Value Reference Range Interpretation Comments MCV (test code = MCV) 81.5 80.0-94.0 [facility] Cle[facility]neXudnvozWTPBTTTOOS0763-97-30 06:11:00 Test Item Value Reference Range Interpretation Comments MCHC (test code = MCHC) 31.9 32.0-36.0 [facility] CleburnePygeeodSFRUWGOGMB0775-95-82 06:11:00 Test Item Value Reference Range Interpretation Comments RBC (test code = RBC) 3.16 4.70-6.10 [facility] CleburneGuhdllkBRUKHBVFPM7334-87-64 06:11:00 Test Item Value Reference Range Interpretation Comments Hct (test code = Hct) 25.8 42.0-54.0 [place] 085099-03-18 06:11:00 Test Item Value Reference Range Interpretation Comments Hgb (test code = Hgb) 8.2 14.0-18.0 [facility] Cle[facility]neJijwcwqMITWRPPDBH9962-61-59 06:11:00 Test Item Value Reference Range Interpretation Comments WBC (test code = WBC) 7.5 3.7-10.4 [facility] CleburneKgkjbzyNSGMBLHVEN0350-05-39 06:11:00 Test Item Value Reference Range Interpretation Comments Monocytes # (test code 0.7 See_Comment [Aut omated message] The = Monocytes #) system which generated this result tra nsmitted reference range : <=0.8. The reference r ondina was not used to int erpret this result as normal/abnormal . [facility] CleburneZnmpbseOTCUVBUCWL3400-92-24 06:11:00 Test Item Value Reference Range Interpretation Comments Basophils # (test code 0.1 See_Comment [Aut omated message] The = Basophils #) system which generated this result tra nsmitted reference range : <=0.2. The reference r ondina was not used to int erpret this result as normal/abnormal . [facility] CleburneZslkvyxRYVFEUHETH5365-00-00 06:11:00 Test Item Value Reference Range Interpretation Comments Eosinophils # (test code 0.4 See_Comment [A utomated message] The = Eosinophils #) system whic h generated this result tra nsmitted reference range : <=0.5. The reference r ondina was not used to int erpret this result as normal/abnormal . [facility] Cle[facility]neMqwsxcpTDFMPCLBPI7234-33-61 06:11:00 Test Item Value Reference Range Interpretation Comments Lymphocytes # (test code = Lymphocytes 1.6 1.0-5.5 #) [facility] Cle[facility]neShxdqjkLYWIZYSYOQ8826-70-92 06:11:00 Test Item Value Reference Range Interpretation Comments Neutrophils # (test code = Neutrophils 4.8 1.5-8.1 #) [facility] Cle[facility]neFkwhbohKHSSQEROXW9888-75-18 06:11:00 Test Item Value Reference Range Interpretation Comments Basophils (test code = 1.1 See_Comment [Aut omated message] The Basophils) system which ge nerated this result tra nsmitted reference range : <=1.0. The reference r ondina was not used to int erpret this result as normal/abnormal . [facility] CleburneXwbfwicCQFAOGHEJX5380-12-00 06:11:00 Test Item Value Reference Range Interpretation Comments Eosinophils (test code = 5.2 See_Comment [A utomated message] The Eosinophils) system which ge nerated this result tra nsmitted reference range : <=4.0. The reference r ondina was not used to int erpret this result as normal/abnormal . [facility] CleburneIuxmvgpILRWTSSCKE0280-04-91 06:11:00 Test Item Value Reference Range Interpretation Comments Monocytes (test code = Monocytes) 9.1 2.0-12.0 [facility] CleburneOgfxwpyUFHJRBMYKM2147-94-88 06:11:00 Test Item Value Reference Range Interpretation Comments Lymphocytes (test code = Lymphocytes) 21.2 20.0-40.0 [facility] CleburneUaqbaabCVZEJHVDUH1803-96-02 06:11:00 Test Item Value Reference Range Interpretation Comments Segs (test code = Segs) 63.4 45.0-75.0 [place] [id number] 06:11:00 Test Item Value Reference Range Interpretation Comments Vanco Tr TND (test code = Vanco Tr 0030 1 TND) [place] [id number] 06:11:00 Test Item Value Reference Range Interpretation Comments Vanco Tr (test code = Vanco Tr) 7.3 [facility] HospitalDguvuhfJRLJPPZVHPPG1639-22-90 06:11:00 Test Item Value Reference Range Interpretation Comments AGAP (test code = AGAP) 9.1 10.0-20.0 [facility] HospitalAxkyrunMFGADCXGGWQS7245-58-05 06:11:00 Test Item Value Reference Range Interpretation Comments Sodium Lvl (test code = Sodium Lvl) 144 135-145 [facility] HospitalAjqjvqcCFXAKQWRMSCE5896-99-14 06:11:00 Test Item Value Reference Range Interpretation Comments Chloride Lvl (test code = Chloride Lvl) 108 95-109 [facility] HospitalZaiammmNKNHUUREODDV6092-56-73 06:11:00 Test Item Value Reference Range Interpretation Comments Potassium Lvl (test code = Potassium 4.1 3.5-5.1 Lvl) [facility] HospitalVimhqzxNUZSSAVQRXSM3182-25-03 06:11:00 Test Item Value Reference Range Interpretation Comments CO2 (test code = CO2) 31 24-32 [facility] HospitalKogpvyyEVBOPPRVRSWV7856-77-33 06:11:00 Test Item Value Reference Range Interpretation Comments BUN (test code = BUN) 15 7-22 [facility] HospitalKgysspsMUZYXPJPGPZY2241-82-38 06:11:00 Test Item Value Reference Range Interpretation Comments Glucose Lvl (test code = Glucose Lvl) 96 70-99 [facility] HospitalOdwmnymUETIFCAHZWUS0736-04-31 06:11:00 Test Item Value Reference Range Interpretation Comments Creatinine Lvl (test code = Creatinine 0.72 0.50-1.40 Lvl) [facility] HospitalZbzhoinHIGWJMNXEVXS6786-36-22 06:11:00 Test Item Value Reference Range Interpretation Comments eGFR (test code = eGFR) 102 [facility] HospitalXxdzotmGPLYHZZYOYET6150-04-42 06:11:00 Test Item Value Reference Range Interpretation Comments Calcium Lvl (test code = Calcium Lvl) 8.3 8.5-10.5 [facility] CleburneEojylwsFLJEGLUDAM5643-27-84 06:11:00 Test Item Value Reference Range Interpretation Comments MPV (test code = MPV) 8.0 7.4-10.4 [facility] CleburneIfeibxmTVLRFDNZOM4380-80-80 06:11:00 Test Item Value Reference Range Interpretation Comments Platelet (test code = Platelet) 217 133-450 [facility] CleburneHbxapwqUBDACEZLBM0186-88-44 06:11:00 Test Item Value Reference Range Interpretation Comments RDW (test code = RDW) 18.6 11.5-14.5 [facility]KgiifvvGJTQKWWSXP1260-37-95 06:11:00 Test Item Value Reference Range Interpretation Comments MCH (test code = MCH) 26.0 pg 27.0-31.0 [facility]neLtlbnjdHNPOQNVGQB0145-88-23 06:11:00 Test Item Value Reference Range Interpretation Comments MCV (test code = MCV) 81.5 80.0-94.0 [facility]neQtmuauhURFDKKPFCD2328-33-92 06:11:00 Test Item Value Reference Range Interpretation Comments MCHC (test code = MCHC) 31.9 32.0-36.0 [facility]neFdmgbenPBUXBURTZA6454-77-39 06:11:00 Test Item Value Reference Range Interpretation Comments RBC (test code = RBC) 3.16 4.70-6.10 [facility]neWetymnmJREORIDTRL8242-17-81 06:11:00 Test Item Value Reference Range Interpretation Comments Hct (test code = Hct) 25.8 42.0-54.0 [facility]neYuuizdeEIPDMWUBWT7454-03-93 06:11:00 Test Item Value Reference Range Interpretation Comments Hgb (test code = Hgb) 8.2 14.0-18.0 [facility]neAbpdwpiWBCQDYEEAO4656-71-38 06:11:00 Test Item Value Reference Range Interpretation Comments WBC (test code = WBC) 7.5 3.7-10.4 [facility]neHbbttkpUUUZVXURUU8752-44-75 06:11:00 Test Item Value Reference Range Interpretation Comments Monocytes # (test code = Monocytes #) 0.7 <=0.8 [facility]neCuhoasaGDVAATQOUA1867-86-36 06:11:00 Test Item Value Reference Range Interpretation Comments Basophils # (test code = Basophils #) 0.1 <=0.2 [facility]neMkaojcoTHXEWBQUYM5493-96-54 06:11:00 Test Item Value Reference Range Interpretation Comments Eosinophils # (test code = Eosinophils 0.4 <=0.5 #) [facility]neUzqkinaPCOYVYCUVC5044-42-52 06:11:00 Test Item Value Reference Range Interpretation Comments Lymphocytes # (test code = Lymphocytes 1.6 1.0-5.5 #) [facility]neDojapapBBQEQIXBRD1925-92-30 06:11:00 Test Item Value Reference Range Interpretation Comments Neutrophils # (test code = Neutrophils 4.8 1.5-8.1 #) [facility]neFotxfprNHPNCFPFRC2426-14-85 06:11:00 Test Item Value Reference Range Interpretation Comments Basophils (test code = Basophils) 1.1 <=1.0 [facility]neWmlsatjTGBFTGBGHA0893-81-32 06:11:00 Test Item Value Reference Range Interpretation Comments Eosinophils (test code = Eosinophils) 5.2 <=4.0 [facility]neUwomlatDCVHTDVFXS2885-19-00 06:11:00 Test Item Value Reference Range Interpretation Comments Monocytes (test code = Monocytes) 9.1 2.0-12.0 [facility]neJasswfnNDBJRQALYF2710-60-06 06:11:00 Test Item Value Reference Range Interpretation Comments Lymphocytes (test code = Lymphocytes) 21.2 20.0-40.0 [facility]WwcajwdKDAZVVHFZL6877-07-12 06:11:00 Test Item Value Reference Range Interpretation Comments Segs (test code = Segs) 63.4 45.0-75.0 [facility]ItqosbkHJQUCRAYAW1002-46-32 06:11:00 Test Item Value Reference Range Interpretation Comments Vanco Tr TND (test code = Vanco Tr 0030 1 TND) [place] [id number] 06:11:00 Test Item Value Reference Range Interpretation Comments Vanco Tr (test code = Vanco Tr) 7.3 [facility] HospitalIlpuhxiCLJEQERCSMIW9898-87-39 06:11:00 Test Item Value Reference Range Interpretation Comments AGAP (test code = AGAP) 9.1 10.0-20.0 [facility] HospitalZotqbrrNGRYCHNDKNAA7560-84-59 06:11:00 Test Item Value Reference Range Interpretation Comments Sodium Lvl (test code = Sodium Lvl) 144 135-145 [facility] HospitalBcphggrAXNIRAQMLDSH2568-66-86 06:11:00 Test Item Value Reference Range Interpretation Comments Chloride Lvl (test code = Chloride Lvl) 108 95-109 [facility] HospitalYpqnedwFZFNDXDOSNIN7165-03-76 06:11:00 Test Item Value Reference Range Interpretation Comments Potassium Lvl (test code = Potassium 4.1 3.5-5.1 Lvl) [facility] HospitalLopajxfEUKYLNQQPVUV0940-94-22 06:11:00 Test Item Value Reference Range Interpretation Comments CO2 (test code = CO2) 31 24-32 [facility] HospitalDmreryiWNBGCLSXNBOT2827-14-31 06:11:00 Test Item Value Reference Range Interpretation Comments BUN (test code = BUN) 15 7-22 [facility] HospitalHpqjunpZBFETQUWERQS7371-77-01 06:11:00 Test Item Value Reference Range Interpretation Comments Glucose Lvl (test code = Glucose Lvl) 96 70-99 [facility] HospitalKrxeyusFWZQVABOUBNB2584-66-84 06:11:00 Test Item Value Reference Range Interpretation Comments Creatinine Lvl (test code = Creatinine 0.72 0.50-1.40 Lvl) [facility] HospitalKsjbjrxDIHJGWTGGNXE7943-70-33 06:11:00 Test Item Value Reference Range Interpretation Comments eGFR (test code = eGFR) 102 [facility] HospitalCvgbuqmNNUMCKKQWHSM1922-95-99 06:11:00 Test Item Value Reference Range Interpretation Comments Calcium Lvl (test code = Calcium Lvl) 8.3 8.5-10.5 [facility]neEwaaeuqJDZJGIKISO7543-40-46 06:11:00 Test Item Value Reference Range Interpretation Comments MPV (test code = MPV) 8.0 7.4-10.4 [facility]neDhpcjcyJWWSJABYLL0307-74-91 06:11:00 Test Item Value Reference Range Interpretation Comments Platelet (test code = Platelet) 217 133-450 [facility]neLqgnlsbLNSFOICIVU7621-69-43 06:11:00 Test Item Value Reference Range Interpretation Comments RDW (test code = RDW) 18.6 11.5-14.5 [facility]neFhceccuVQWCVUFCMG1512-73-56 06:11:00 Test Item Value Reference Range Interpretation Comments MCH (test code = MCH) 26.0 pg 27.0-31.0 [facility]neHgbnuqdBZBRLCIDNJ8928-39-62 06:11:00 Test Item Value Reference Range Interpretation Comments MCV (test code = MCV) 81.5 80.0-94.0 [facility]nePxnkupsVTKVRGUPGW2930-07-51 06:11:00 Test Item Value Reference Range Interpretation Comments MCHC (test code = MCHC) 31.9 32.0-36.0 [facility]nePwgrnjqKETXTYDLCW8870-89-67 06:11:00 Test Item Value Reference Range Interpretation Comments RBC (test code = RBC) 3.16 4.70-6.10 [facility]neZtdcpjsHUEAWEJQNS7788-89-88 06:11:00 Test Item Value Reference Range Interpretation Comments Hct (test code = Hct) 25.8 42.0-54.0 [facility]neWztsahsOOVHZWUUTP7476-88-24 06:11:00 Test Item Value Reference Range Interpretation Comments Hgb (test code = Hgb) 8.2 14.0-18.0 [facility]neNrxfnjxLVTGIZTKDC0912-24-27 06:11:00 Test Item Value Reference Range Interpretation Comments WBC (test code = WBC) 7.5 3.7-10.4 [facility]neXorgnpdEQSBZRTOKS3274-19-02 06:11:00 Test Item Value Reference Range Interpretation Comments Monocytes # (test code 0.7 See_Comment [Aut omated message] The = Monocytes #) system which generated this result tra nsmitted reference range : <=0.8. The reference r ondina was not used to int erpret this result as normal/abnormal . [facility]neYmwlcxpVYLOACIRSV0246-64-99 06:11:00 Test Item Value Reference Range Interpretation Comments Basophils # (test code 0.1 See_Comment [Aut omated message] The = Basophils #) system which generated this result tra nsmitted reference range : <=0.2. The reference r ondina was not used to int erpret this result as normal/abnormal . [facility]neScysmgzZVIUYRSLBP0298-47-28 06:11:00 Test Item Value Reference Range Interpretation Comments Eosinophils # (test code 0.4 See_Comment [A utomated message] The = Eosinophils #) system whic h generated this result tra nsmitted reference range : <=0.5. The reference r ondina was not used to int erpret this result as normal/abnormal . [facility]neLcwghkcINCZNYRVKA1475-73-20 06:11:00 Test Item Value Reference Range Interpretation Comments Lymphocytes # (test code = Lymphocytes 1.6 1.0-5.5 #) [facility]neEaybivhTICHJVZEQI5396-45-75 06:11:00 Test Item Value Reference Range Interpretation Comments Neutrophils # (test code = Neutrophils 4.8 1.5-8.1 #) [facility]neDhxpbavUWEURHGWYW8539-35-81 06:11:00 Test Item Value Reference Range Interpretation Comments Basophils (test code = 1.1 See_Comment [Aut omated message] The Basophils) system which ge nerated this result tra nsmitted reference range : <=1.0. The reference r ondina was not used to int erpret this result as normal/abnormal . [facility]neWhfatamNPPYWFKEFQ8136-89-19 06:11:00 Test Item Value Reference Range Interpretation Comments Eosinophils (test code = 5.2 See_Comment [A utomated message] The Eosinophils) system which ge nerated this result tra nsmitted reference range : <=4.0. The reference r ondina was not used to int erpret this result as normal/abnormal . [facility]neMgparvcTPSETHBVJY8123-05-57 06:11:00 Test Item Value Reference Range Interpretation Comments Monocytes (test code = Monocytes) 9.1 2.0-12.0 [facility]neKmmndpiQSDAUZJTXH2196-09-91 06:11:00 Test Item Value Reference Range Interpretation Comments Lymphocytes (test code = Lymphocytes) 21.2 20.0-40.0 [facility]YmaicadYXEMUZOYXC8931-08-72 06:11:00 Test Item Value Reference Range Interpretation Comments Segs (test code = Segs) 63.4 45.0-75.0 [facility] CenterJqqxbxvXALWSHDNYQ6820-22-97 06:11:00 Test Item Value Reference Range Interpretation Comments Vanco Tr TND (test code = Vanco Tr 0030 1 TND) [place] [id number] 06:11:00 Test Item Value Reference Range Interpretation Comments Vanco Tr (test code = Vanco Tr) 7.3 [facility] HospitalVztasafYZFMGLQPRAFR5551-67-83 06:11:00 Test Item Value Reference Range Interpretation Comments AGAP (test code = AGAP) 9.1 10.0-20.0 [facility] HospitalAjqwbroYELTDEQAZUFH7645-45-52 06:11:00 Test Item Value Reference Range Interpretation Comments Sodium Lvl (test code = Sodium Lvl) 144 135-145 [facility] HospitalJyknwpoHPOKRNESWTST6723-91-84 06:11:00 Test Item Value Reference Range Interpretation Comments Chloride Lvl (test code = Chloride Lvl) 108 95-109 [facility] HospitalPvpvlsrOJRBRDAPESCH9860-01-90 06:11:00 Test Item Value Reference Range Interpretation Comments Potassium Lvl (test code = Potassium 4.1 3.5-5.1 Lvl) [facility] HospitalUdgcgerDFURMICWDEFV4188-72-19 06:11:00 Test Item Value Reference Range Interpretation Comments CO2 (test code = CO2) 31 24-32 [facility] HospitalVuccpaaQEZKOSSWWEYJ2872-92-89 06:11:00 Test Item Value Reference Range Interpretation Comments BUN (test code = BUN) 15 7-22 [facility] HospitalKthqlpxGBDFZDKLQFBI0586-74-56 06:11:00 Test Item Value Reference Range Interpretation Comments Glucose Lvl (test code = Glucose Lvl) 96 70-99 [facility] HospitalCsguqptJWUAZGZBHBXM1896-11-14 06:11:00 Test Item Value Reference Range Interpretation Comments Creatinine Lvl (test code = Creatinine 0.72 0.50-1.40 Lvl) [facility] HospitalQgxrqyvLCECQZFVJBIH1695-15-81 06:11:00 Test Item Value Reference Range Interpretation Comments eGFR (test code = eGFR) 102 [facility] HospitalYqhucbqFUISXIASBAGJ5188-11-46 06:11:00 Test Item Value Reference Range Interpretation Comments Calcium Lvl (test code = Calcium Lvl) 8.3 8.5-10.5 [facility]neIsfdlewIBYYCTFWCX2908-61-00 06:11:00 Test Item Value Reference Range Interpretation Comments MPV (test code = MPV) 8.0 7.4-10.4 [facility]neYfjmvyvKRNNLWQGNY8667-34-11 06:11:00 Test Item Value Reference Range Interpretation Comments Platelet (test code = Platelet) 217 133-450 [facility]neZwtzlzmKCGADQNSZA5197-14-90 06:11:00 Test Item Value Reference Range Interpretation Comments RDW (test code = RDW) 18.6 11.5-14.5 [facility]neXnatjkiYGJGMIVAUL6040-14-11 06:11:00 Test Item Value Reference Range Interpretation Comments MCH (test code = MCH) 26.0 pg 27.0-31.0 [facility]neJtysjcjOZCHWOVPXK8166-32-51 06:11:00 Test Item Value Reference Range Interpretation Comments MCV (test code = MCV) 81.5 80.0-94.0 [facility]neZetanqcITBIQJLFMU1070-91-14 06:11:00 Test Item Value Reference Range Interpretation Comments MCHC (test code = MCHC) 31.9 32.0-36.0 [facility]neQhgwduuCIYABFVFMX7998-55-62 06:11:00 Test Item Value Reference Range Interpretation Comments RBC (test code = RBC) 3.16 4.70-6.10 [facility]neRvaaehtDHDCCXAMXD4822-98-91 06:11:00 Test Item Value Reference Range Interpretation Comments Hct (test code = Hct) 25.8 42.0-54.0 [facility]neFgyaltgWYBCGMLUJR2070-46-82 06:11:00 Test Item Value Reference Range Interpretation Comments Hgb (test code = Hgb) 8.2 14.0-18.0 [facility]neBkrcbuvDXIYYKBJDE4310-90-11 06:11:00 Test Item Value Reference Range Interpretation Comments WBC (test code = WBC) 7.5 3.7-10.4 [facility]nePvwrwvqPUJVMHYFMO0972-29-74 06:11:00 Test Item Value Reference Range Interpretation Comments Monocytes # (test code = Monocytes #) 0.7 <=0.8 [facility]neDmtnigkNXOIRYYGHK1573-61-97 06:11:00 Test Item Value Reference Range Interpretation Comments Basophils # (test code = Basophils #) 0.1 <=0.2 [facility]neUvgysavCHRESMWTEO1351-08-33 06:11:00 Test Item Value Reference Range Interpretation Comments Eosinophils # (test code = Eosinophils 0.4 <=0.5 #) [facility]neAoygwgtMBCJHDXZKR9925-04-98 06:11:00 Test Item Value Reference Range Interpretation Comments Lymphocytes # (test code = Lymphocytes 1.6 1.0-5.5 #) [facility]neRxeisnxJMWEUEOFHJ1873-14-57 06:11:00 Test Item Value Reference Range Interpretation Comments Neutrophils # (test code = Neutrophils 4.8 1.5-8.1 #) [facility]neIqcvoslDUDASOZPKY8261-25-52 06:11:00 Test Item Value Reference Range Interpretation Comments Basophils (test code = Basophils) 1.1 <=1.0 [facility]neJdmrlhkQGFJRXSBJE3089-08-72 06:11:00 Test Item Value Reference Range Interpretation Comments Eosinophils (test code = Eosinophils) 5.2 <=4.0 [facility]neVyhvvxzNPBXDSUIOC6612-42-41 06:11:00 Test Item Value Reference Range Interpretation Comments Monocytes (test code = Monocytes) 9.1 2.0-12.0 [facility]neKtzojuhXBLAMTXILM3205-72-78 06:11:00 Test Item Value Reference Range Interpretation Comments Lymphocytes (test code = Lymphocytes) 21.2 20.0-40.0 [facility]neCifhpgfSSAUNHDVRQ7388-46-21 06:11:00 Test Item Value Reference Range Interpretation Comments Segs (test code = Segs) 63.4 45.0-75.0 [facility]YxrbvueGXPXYSOYYN1837-70-72 06:11:00 Test Item Value Reference Range Interpretation Comments Vanco Tr TND (test code = Vanco Tr 0030 1 TND) [facility] AtlantaMfgkmriFCADKMFQVD2433-15-61 06:11:00 Test Item Value Reference Range Interpretation Comments Vanco Tr (test code = Vanco Tr) 7.3 [facility] HGDXB9978-79-85 10:50:00 Test Item Value Reference Range Interpretation Comments Magnesium Lvl (test code = Magnesium 1.8 1.8-2.4 Lvl) [facility] DJLBH4124-60-73 10:50:00 Test Item Value Reference Range Interpretation Comments Phosphorus (test code = Phosphorus) 3.3 2.5-4.5 [facility] HospitalMovnbmeTXBOJPSGWBLX0600-89-23 10:50:00 Test Item Value Reference Range Interpretation Comments AGAP (test code = AGAP) 9.9 10.0-20.0 [facility] HospitalFbjbeqzPQLIFHJUGTHN2583-55-05 10:50:00 Test Item Value Reference Range Interpretation Comments Calcium Lvl (test code = Calcium Lvl) 7.9 8.5-10.5 [facility] HospitalSginovgNAFAKOAUVNFT2963-65-96 10:50:00 Test Item Value Reference Range Interpretation Comments eGFR (test code = eGFR) 101 [facility] HospitalBnecabrGRPARBLFXYCN1687-03-09 10:50:00 Test Item Value Reference Range Interpretation Comments Creatinine Lvl (test code = Creatinine 0.72 0.50-1.40 Lvl) [facility] HospitalOopwhbkUFZNQORSXUMY2966-98-17 10:50:00 Test Item Value Reference Range Interpretation Comments Sodium Lvl (test code = Sodium Lvl) 143 135-145 [facility] HospitalHuluyjnKQTSWINUASQR8136-32-88 10:50:00 Test Item Value Reference Range Interpretation Comments Potassium Lvl (test code = Potassium 3.9 3.5-5.1 Lvl) [facility] HospitalEjzfclzFHHSXXMADEFX3426-00-57 10:50:00 Test Item Value Reference Range Interpretation Comments Chloride Lvl (test code = Chloride Lvl) 109 95-109 [facility] HospitalTajbsvnSRMHMRPYNBUT0344-93-11 10:50:00 Test Item Value Reference Range Interpretation Comments BUN (test code = BUN) 15 7-22 [facility] HospitalCsgnjbvSLEGHXAKFRGE9797-35-51 10:50:00 Test Item Value Reference Range Interpretation Comments CO2 (test code = CO2) 28 24-32 [facility] HospitalNckrmnwICYINLBPKSOE2799-58-36 10:50:00 Test Item Value Reference Range Interpretation Comments Glucose Lvl (test code = Glucose Lvl) 121 70-99 [facility]neWwywflxAXZSCXBMTN5087-77-74 10:50:00 Test Item Value Reference Range Interpretation Comments Basophils # (test code 0.1 See_Comment [Aut omated message] The = Basophils #) system which generated this result tra nsmitted reference range : <=0.2. The reference r ondina was not used to int erpret this result as normal/abnormal . [facility]neWnejglrNOHLPGTOPC9344-43-23 10:50:00 Test Item Value Reference Range Interpretation Comments Neutrophils # (test code = Neutrophils 4.6 1.5-8.1 #) [facility]neGeotuyiZJXVERBPKO4491-64-10 10:50:00 Test Item Value Reference Range Interpretation Comments Lymphocytes # (test code = Lymphocytes 1.5 1.0-5.5 #) [facility]neVkchdkhLBFGAUUKAC8118-83-35 10:50:00 Test Item Value Reference Range Interpretation Comments Lymphocytes (test code = Lymphocytes) 22.0 20.0-40.0 [facility]neAivvvbgJSMAKARWCP3250-79-47 10:50:00 Test Item Value Reference Range Interpretation Comments Monocytes (test code = Monocytes) 6.9 2.0-12.0 [facility]neHddntyoDXYKITQUAA3065-85-31 10:50:00 Test Item Value Reference Range Interpretation Comments Basophils (test code = 0.7 See_Comment [Aut omated message] The Basophils) system which ge nerated this result tra nsmitted reference range : <=1.0. The reference r ondina was not used to int erpret this result as normal/abnormal . [facility]neRbcrvvjMJUAIYBQCV5345-73-24 10:50:00 Test Item Value Reference Range Interpretation Comments Eosinophils (test code = 4.5 See_Comment [A utomated message] The Eosinophils) system which ge nerated this result tra nsmitted reference range : <=4.0. The reference r ondina was not used to int erpret this result as normal/abnormal . [facility]neVzdamgtAYRFCCMIQN2369-53-55 10:50:00 Test Item Value Reference Range Interpretation Comments Monocytes # (test code 0.5 See_Comment [Aut omated message] The = Monocytes #) system which generated this result tra nsmitted reference range : <=0.8. The reference r ondina was not used to int erpret this result as normal/abnormal . [facility]neUhqujfkZMTQXTUNXO3282-84-81 10:50:00 Test Item Value Reference Range Interpretation Comments Eosinophils # (test code 0.3 See_Comment [A utomated message] The = Eosinophils #) system [facility] h generated this result tra nsmitted reference range : <=0.5. The reference r ondina was not used to int erpret this result as normal/abnormal . [facility]neDztaurhCENPMWDKHW9883-61-72 10:50:00 Test Item Value Reference Range Interpretation Comments Segs (test code = Segs) 65.9 45.0-75.0 [facility]neOuwwlyhANNVMZLHSN8683-21-11 10:50:00 Test Item Value Reference Range Interpretation Comments MCH (test code = MCH) 26.3 pg 27.0-31.0 [facility]neXvlzmphNZECYKBHSD6537-48-89 10:50:00 Test Item Value Reference Range Interpretation Comments MCHC (test code = MCHC) 32.2 32.0-36.0 [facility]neOxqtuuoMQUEZSZZRR0223-95-97 10:50:00 Test Item Value Reference Range Interpretation Comments Hct (test code = Hct) 24.2 42.0-54.0 [facility]neDjewadjWCCHKIJUCT6278-19-46 10:50:00 Test Item Value Reference Range Interpretation Comments MCV (test code = MCV) 81.7 80.0-94.0 [facility]neGaeapnnSHDIAJGTSG4352-44-39 10:50:00 Test Item Value Reference Range Interpretation Comments Platelet (test code = Platelet) 200 133-450 [facility]neGuykrjxEEKJTORKBH4876-68-54 10:50:00 Test Item Value Reference Range Interpretation Comments RDW (test code = RDW) 18.4 11.5-14.5 [facility]neSbsgvqwGPLZHLQILQ5156-20-33 10:50:00 Test Item Value Reference Range Interpretation Comments MPV (test code = MPV) 8.2 7.4-10.4 [facility]neNdzegqpNPQVFUQYYN1281-06-72 10:50:00 Test Item Value Reference Range Interpretation Comments RBC (test code = RBC) 2.96 4.70-6.10 [facility]neQtfmwdnTBBGDKJTNA8482-15-10 10:50:00 Test Item Value Reference Range Interpretation Comments Hgb (test code = Hgb) 7.8 14.0-18.0 [facility]neUagjdlgKGWPFTRVKY4532-44-15 10:50:00 Test Item Value Reference Range Interpretation Comments WBC (test code = WBC) 7.0 3.7-10.4 [place] [id number] 10:50:00 Test Item Value Reference Range Interpretation Comments Vanco Tr (test code = Vanco Tr) 21.8 [place] [id number] 10:50:00 Test Item Value Reference Range Interpretation Comments Vanco Tr TND (test code = Vanco Tr TND) [facility]2019-03-17 10:50:00 Test Item Value Reference Range Interpretation Comments Magnesium Lvl (test code = Magnesium 1.8 1.8-2.4 Lvl) [facility]2019-03-17 10:50:00 Test Item Value Reference Range Interpretation Comments Phosphorus (test code = Phosphorus) 3.3 2.5-4.5 [facility] HospitalVfydszsGVRNHCUHQFXQ4431-26-07 10:50:00 Test Item Value Reference Range Interpretation Comments AGAP (test code = AGAP) 9.9 10.0-20.0 [facility] HospitalKkbuffvMDOBHOIJZNDR2893-01-71 10:50:00 Test Item Value Reference Range Interpretation Comments Calcium Lvl (test code = Calcium Lvl) 7.9 8.5-10.5 [facility] HospitalOhkyilbDMMLULEHBLDV2055-45-76 10:50:00 Test Item Value Reference Range Interpretation Comments eGFR (test code = eGFR) 101 [facility] HospitalLrqdwudEJXUHRWGFINF6369-81-92 10:50:00 Test Item Value Reference Range Interpretation Comments Creatinine Lvl (test code = Creatinine 0.72 0.50-1.40 Lvl) [facility] HospitalXubtfofNBBKCUBAACBA3062-00-07 10:50:00 Test Item Value Reference Range Interpretation Comments Sodium Lvl (test code = Sodium Lvl) 143 135-145 [facility] [facility]FPWCG3104-43-13 10:50:00 Test Item Value Reference Range Interpretation Comments Potassium Lvl (test code = Potassium 3.9 3.5-5.1 Lvl) [facility]LsqtkecLKMHUSXVZLIX0738-38-48 10:50:00 Test Item Value Reference Range Interpretation Comments Chloride Lvl (test code = Chloride Lvl) 109 95-109 [facility] HospitalRvfhakrVOZQDOOEVEJB8444-91-30 10:50:00 Test Item Value Reference Range Interpretation Comments BUN (test code = BUN) 15 7-22 [facility] HospitalYnxsvorAEPMQWLGCEQD3730-62-60 10:50:00 Test Item Value Reference Range Interpretation Comments CO2 (test code = CO2) 28 24-32 [facility] HospitalGktrpjdYRQIULLQDOZO2969-82-41 10:50:00 Test Item Value Reference Range Interpretation Comments Glucose Lvl (test code = Glucose Lvl) 121 70-99 [facility]HcwyxydZIWMZOVJXP6701-13-22 10:50:00 Test Item Value Reference Range Interpretation Comments Basophils # (test code 0.1 See_Comment [Aut omated message] The = Basophils #) system which generated this result tra nsmitted reference range : <=0.2. The reference r ondina was not used to int erpret this result as normal/abnormal . [facility]neNzzoggsJDPCFAPQLX1579-34-78 10:50:00 Test Item Value Reference Range Interpretation Comments Neutrophils # (test code = Neutrophils 4.6 1.5-8.1 #) [facility]neRdrcynqESJQCRLTPS5957-96-40 10:50:00 Test Item Value Reference Range Interpretation Comments Lymphocytes # (test code = Lymphocytes 1.5 1.0-5.5 #) [facility] Cle[facility]neIufqionFVMSFQMWAG7678-17-51 10:50:00 Test Item Value Reference Range Interpretation Comments Lymphocytes (test code = Lymphocytes) 22.0 20.0-40.0 [facility] Cle[facility]neLpfhbskRUIPSWLCBN3594-73-29 10:50:00 Test Item Value Reference Range Interpretation Comments Monocytes (test code = Monocytes) 6.9 2.0-12.0 [facility]neNrzoozuDROTEYQBDY1597-84-83 10:50:00 Test Item Value Reference Range Interpretation Comments Basophils (test code = 0.7 See_Comment [Aut omated message] The Basophils) system which ge nerated this result tra nsmitted reference range : <=1.0. The reference r ondina was not used to int erpret this result as normal/abnormal . [facility] Cle[facility]neAhkyuppMHWNKIRMBP8721-96-85 10:50:00 Test Item Value Reference Range Interpretation Comments Eosinophils (test code = 4.5 See_Comment [A utomated message] The Eosinophils) system which ge nerated this result tra nsmitted reference range : <=4.0. The reference r ondina was not used to int erpret this result as normal/abnormal . [facility]nePccgtadODQZLBQEKO6649-89-19 10:50:00 Test Item Value Reference Range Interpretation Comments Monocytes # (test code 0.5 See_Comment [Aut omated message] The = Monocytes #) system which generated this result tra nsmitted reference range : <=0.8. The reference r ondina was not used to int erpret this result as normal/abnormal . [facility]neCxjbnmeZNQGJRQXTY0392-26-66 10:50:00 Test Item Value Reference Range Interpretation Comments Eosinophils # (test code 0.3 See_Comment [A utomated message] The = Eosinophils #) system [employer] h generated this result tra nsmitted reference range : <=0.5. The reference r ondina was not used to int erpret this result as normal/abnormal . [facility]neCjymmrtRTCYFJYIKQ4455-33-91 10:50:00 Test Item Value Reference Range Interpretation Comments Segs (test code = Segs) 65.9 45.0-75.0 [facility] CleburneJsauehjLYYBVZAOZS2453-49-23 10:50:00 Test Item Value Reference Range Interpretation Comments MCH (test code = MCH) 26.3 pg 27.0-31.0 [facility] Cle[facility]neCgssykuNNUABVGWXE1773-86-21 10:50:00 Test Item Value Reference Range Interpretation Comments MCHC (test code = MCHC) 32.2 32.0-36.0 [facility] Cle[facility]neOtsxfeuQXYYCVYJTP1397-26-39 10:50:00 Test Item Value Reference Range Interpretation Comments Hct (test code = Hct) 24.2 42.0-54.0 [facility] Cle[facility]neSechmcsDQGWBMSKCR2585-88-10 10:50:00 Test Item Value Reference Range Interpretation Comments MCV (test code = MCV) 81.7 80.0-94.0 [facility] CleburneBrrjdomSOPKJRTOAY6105-47-74 10:50:00 Test Item Value Reference Range Interpretation Comments Platelet (test code = Platelet) 200 133-450 [facility] CleburneHjswmdeNFECAHHBZO7203-54-37 10:50:00 Test Item Value Reference Range Interpretation Comments RDW (test code = RDW) 18.4 11.5-14.5 [facility] Cle[facility]neNsbccftISODJVTNUV3997-02-10 10:50:00 Test Item Value Reference Range Interpretation Comments MPV (test code = MPV) 8.2 7.4-10.4 [facility]neOpkzuumRODZMURVXK9326-37-53 10:50:00 Test Item Value Reference Range Interpretation Comments RBC (test code = RBC) 2.96 4.70-6.10 [facility] CleburneAhuarnuJLFXUMCNCQ1436-78-10 10:50:00 Test Item Value Reference Range Interpretation Comments Hgb (test code = Hgb) 7.8 14.0-18.0 [facility] Cle[facility]neTwplyxcYDGZFQUBSB7509-24-76 10:50:00 Test Item Value Reference Range Interpretation Comments WBC (test code = WBC) 7.0 3.7-10.4 [facility]EjtqhhtNOQWMCIFTL1753-12-70 10:50:00 Test Item Value Reference Range Interpretation Comments Vanco Tr (test code = Vanco Tr) 21.8 [facility]KtaoaopSOUIXOGJSS6639-16-15 10:50:00 Test Item Value Reference Range Interpretation Comments Vanco Tr TND (test code = Vanco Tr TND) unk [facility] XNFIQ2734-02-82 10:50:00 Test Item Value Reference Range Interpretation Comments Magnesium Lvl (test code = Magnesium 1.8 1.8-2.4 Lvl) [facility] JIIYR2561-44-19 10:50:00 Test Item Value Reference Range Interpretation Comments Phosphorus (test code = Phosphorus) 3.3 2.5-4.5 [facility] HospitalPzflubwNKWTFRPVWNVA7672-52-57 10:50:00 Test Item Value Reference Range Interpretation Comments AGAP (test code = AGAP) 9.9 10.0-20.0 [facility] HospitalGhzydwaWJXDJIZSCTDE9251-38-46 10:50:00 Test Item Value Reference Range Interpretation Comments Calcium Lvl (test code = Calcium Lvl) 7.9 8.5-10.5 [facility] HospitalMfevxydZQBLTSHEJOIZ9912-99-33 10:50:00 Test Item Value Reference Range Interpretation Comments eGFR (test code = eGFR) 101 [facility] HospitalHuoatqcECFJRHLXAVIN3625-99-26 10:50:00 Test Item Value Reference Range Interpretation Comments Creatinine Lvl (test code = Creatinine 0.72 0.50-1.40 Lvl) [facility] HospitalQbcccvdDKVOIMKPVAIU6806-01-52 10:50:00 Test Item Value Reference Range Interpretation Comments Sodium Lvl (test code = Sodium Lvl) 143 135-145 [facility] HospitalWwzqqcjOKLIYKKGGVKO3342-43-30 10:50:00 Test Item Value Reference Range Interpretation Comments Potassium Lvl (test code = Potassium 3.9 3.5-5.1 Lvl) [facility] HospitalGmeexgpMXOMHEUDCUUQ4079-53-99 10:50:00 Test Item Value Reference Range Interpretation Comments Chloride Lvl (test code = Chloride Lvl) 109 95-109 [facility] HospitalMqorbmnPLMKHDCNBQAN8592-42-66 10:50:00 Test Item Value Reference Range Interpretation Comments BUN (test code = BUN) 15 7-22 [facility] HospitalEouzdiqKMXTTTWXVEVM0501-50-63 10:50:00 Test Item Value Reference Range Interpretation Comments CO2 (test code = CO2) 28 24-32 [facility]CczkeytJULWNXMBBMZJ4997-51-06 10:50:00 Test Item Value Reference Range Interpretation Comments Glucose Lvl (test code = Glucose Lvl) 121 70-99 [facility] Cle[facility]neVesmhqqXGBRASNGHL8003-92-65 10:50:00 Test Item Value Reference Range Interpretation Comments Basophils # (test code 0.1 See_Comment [Aut omated message] The = Basophils #) system which generated this result tra nsmitted reference range : <=0.2. The reference r ondina was not used to int erpret this result as normal/abnormal . [facility] CleburneDrernyiDQASZPWYLE0035-19-51 10:50:00 Test Item Value Reference Range Interpretation Comments Neutrophils # (test code = Neutrophils 4.6 1.5-8.1 #) [facility] Cle[facility]neKakcfgbYOEMHPBOKD3487-06-37 10:50:00 Test Item Value Reference Range Interpretation Comments Lymphocytes # (test code = Lymphocytes 1.5 1.0-5.5 #) [facility] Cle[facility]neXbivsenXNIRODLHKZ4246-02-62 10:50:00 Test Item Value Reference Range Interpretation Comments Lymphocytes (test code = Lymphocytes) 22.0 20.0-40.0 [facility] Cle[facility]neVbgpzbnDCOPOTRIVL5657-80-74 10:50:00 Test Item Value Reference Range Interpretation Comments Monocytes (test code = Monocytes) 6.9 2.0-12.0 [facility]neEsxbjjcEVTXLEXUSX3666-50-33 10:50:00 Test Item Value Reference Range Interpretation Comments Basophils (test code = 0.7 See_Comment [Aut omated message] The Basophils) system which ge nerated this result tra nsmitted reference range : <=1.0. The reference r ondina was not used to int erpret this result as normal/abnormal . [facility] CleburneSuacngkVDNMSAMPKV9756-79-33 10:50:00 Test Item Value Reference Range Interpretation Comments Eosinophils (test code = 4.5 See_Comment [A utomated message] The Eosinophils) system which ge nerated this result tra nsmitted reference range : <=4.0. The reference r ondina was not used to int erpret this result as normal/abnormal . [facility] CleburneKdruaacMGIEVXKWFD9994-57-88 10:50:00 Test Item Value Reference Range Interpretation Comments Monocytes # (test code 0.5 See_Comment [Aut omated message] The = Monocytes #) system which generated this result tra nsmitted reference range : <=0.8. The reference r ondina was not used to int erpret this result as normal/abnormal . [facility] CleburneZbzmhjaVCMWHMGPAP4333-30-95 10:50:00 Test Item Value Reference Range Interpretation Comments Eosinophils # (test code 0.3 See_Comment [A utomated message] The = Eosinophils #) system whic h generated this result tra nsmitted reference range : <=0.5. The reference r ondina was not used to int erpret this result as normal/abnormal . [facility]neEgcnlhaJFTOHYXNCA5724-25-30 10:50:00 Test Item Value Reference Range Interpretation Comments Segs (test code = Segs) 65.9 45.0-75.0 [facility] CleburneNtzisenLWKQETHIBO5154-71-48 10:50:00 Test Item Value Reference Range Interpretation Comments MCH (test code = MCH) 26.3 pg 27.0-31.0 [facility] Cle[facility]neAissxpgUIBPQYBXFI5151-83-89 10:50:00 Test Item Value Reference Range Interpretation Comments MCHC (test code = MCHC) 32.2 32.0-36.0 [facility] CleburneRbyxoysCMBNLTOYEU7280-37-51 10:50:00 Test Item Value Reference Range Interpretation Comments Hct (test code = Hct) 24.2 42.0-54.0 [facility] CleburneTfmzpjpZGMEJRWFFJ3564-06-19 10:50:00 Test Item Value Reference Range Interpretation Comments MCV (test code = MCV) 81.7 80.0-94.0 [facility] Cle[facility]neYqqicvmTFIURZJUJQ3773-00-01 10:50:00 Test Item Value Reference Range Interpretation Comments Platelet (test code = Platelet) 200 133-450 [facility] Cle[facility]neOnrzdtuPQQWVKVIOA8493-88-29 10:50:00 Test Item Value Reference Range Interpretation Comments RDW (test code = RDW) 18.4 11.5-14.5 [facility] CleburneRuviwecHUMUBGCGIE7460-45-12 10:50:00 Test Item Value Reference Range Interpretation Comments MPV (test code = MPV) 8.2 7.4-10.4 [facility] Cle[facility]neXxembajJWYLVAGXAN1227-69-78 10:50:00 Test Item Value Reference Range Interpretation Comments RBC (test code = RBC) 2.96 4.70-6.10 [facility] CleburneFhcrguoWOSTNHKVUX1253-67-50 10:50:00 Test Item Value Reference Range Interpretation Comments Hgb (test code = Hgb) 7.8 14.0-18.0 [facility] CleburneFksjygiYAAMCTQYVS2979-45-68 10:50:00 Test Item Value Reference Range Interpretation Comments WBC (test code = WBC) 7.0 3.7-10.4 [facility]SgqiaksTGMZDJODSY7752-44-84 10:50:00 Test Item Value Reference Range Interpretation Comments Vanco Tr (test code = Vanco Tr) 21.8 [facility] CenterCjlluwzMMWQFBHQDI5162-21-79 10:50:00 Test Item Value Reference Range Interpretation Comments Vanco Tr TND (test code = Vanco Tr TND) unk [facility] JZQES8542-90-83 10:50:00 Test Item Value Reference Range Interpretation Comments Magnesium Lvl (test code = Magnesium 1.8 1.8-2.4 Lvl) [facility] VKRKW3627-31-91 10:50:00 Test Item Value Reference Range Interpretation Comments Phosphorus (test code = Phosphorus) 3.3 2.5-4.5 [facility] HospitalZuoufdeEVMMBPIOPRUF3598-22-66 10:50:00 Test Item Value Reference Range Interpretation Comments AGAP (test code = AGAP) 9.9 10.0-20.0 [facility] HospitalQaklmkyFWRVXRKAHGQI2159-39-98 10:50:00 Test Item Value Reference Range Interpretation Comments Calcium Lvl (test code = Calcium Lvl) 7.9 8.5-10.5 [facility] HospitalIayybwtAVLOFCFFRGQT4405-53-06 10:50:00 Test Item Value Reference Range Interpretation Comments eGFR (test code = eGFR) 101 [facility] HospitalHfeiyqtIJAIIBFVISII4313-20-26 10:50:00 Test Item Value Reference Range Interpretation Comments Creatinine Lvl (test code = Creatinine 0.72 0.50-1.40 Lvl) [facility] HospitalKeayonaZKMWJVYVCXKS8533-15-68 10:50:00 Test Item Value Reference Range Interpretation Comments Sodium Lvl (test code = Sodium Lvl) 143 135-145 [facility] HospitalNrkixnbROJNYVACCWXB5885-41-27 10:50:00 Test Item Value Reference Range Interpretation Comments Potassium Lvl (test code = Potassium 3.9 3.5-5.1 Lvl) [facility] HospitalEevuwbyLLPSRZTFNBUH9056-19-49 10:50:00 Test Item Value Reference Range Interpretation Comments Chloride Lvl (test code = Chloride Lvl) 109 95-109 [facility] HospitalRbsqawrFFEXZNYRDPDY1846-21-41 10:50:00 Test Item Value Reference Range Interpretation Comments BUN (test code = BUN) 15 7-22 [facility] HospitalXcpezxuSFJFVTSGKZRQ2260-51-73 10:50:00 Test Item Value Reference Range Interpretation Comments CO2 (test code = CO2) 28 24-32 [facility] HospitalYrxxtqpRUQKJMCNJFFU1719-35-28 10:50:00 Test Item Value Reference Range Interpretation Comments Glucose Lvl (test code = Glucose Lvl) 121 70-99 [facility]neCjxivwwIRVXUWBAMR0137-58-92 10:50:00 Test Item Value Reference Range Interpretation Comments Basophils # (test code = Basophils #) 0.1 <=0.2 [facility]neAgndpluRTLRQUPLPC9198-92-17 10:50:00 Test Item Value Reference Range Interpretation Comments Neutrophils # (test code = Neutrophils 4.6 1.5-8.1 #) [facility] CleburneYmpddraKGFCKJEKCL2726-31-14 10:50:00 Test Item Value Reference Range Interpretation Comments Lymphocytes # (test code = Lymphocytes 1.5 1.0-5.5 #) [facility]neYcynqrqJXAIMKVKJN6624-33-00 10:50:00 Test Item Value Reference Range Interpretation Comments Lymphocytes (test code = Lymphocytes) 22.0 20.0-40.0 [facility] CleburneKgquyztXQNTDUHHNW2247-77-99 10:50:00 Test Item Value Reference Range Interpretation Comments Monocytes (test code = Monocytes) 6.9 2.0-12.0 [facility] Cle[facility]neMtduqdcTCBOQRXNPW9971-89-13 10:50:00 Test Item Value Reference Range Interpretation Comments Basophils (test code = Basophils) 0.7 <=1.0 [facility] CleburneDcwbrmsSQEGIJTPGJ4544-68-05 10:50:00 Test Item Value Reference Range Interpretation Comments Eosinophils (test code = Eosinophils) 4.5 <=4.0 [facility] CleburneSpauzydSAAXOMZWYI6163-89-31 10:50:00 Test Item Value Reference Range Interpretation Comments Monocytes # (test code = Monocytes #) 0.5 <=0.8 [facility] CleburneFsatjgmNRJXEXTWPZ5740-04-50 10:50:00 Test Item Value Reference Range Interpretation Comments Eosinophils # (test code = Eosinophils 0.3 <=0.5 #) [facility] CleburneAfzcujtCVOPLISCDI1526-73-53 10:50:00 Test Item Value Reference Range Interpretation Comments Segs (test code = Segs) 65.9 45.0-75.0 [facility] CleburneIimqtuiJSDAMEUDYK1656-43-55 10:50:00 Test Item Value Reference Range Interpretation Comments MCH (test code = MCH) 26.3 pg 27.0-31.0 [facility] CleburneZphwlspDDNSXVSLPY4474-21-06 10:50:00 Test Item Value Reference Range Interpretation Comments MCHC (test code = MCHC) 32.2 32.0-36.0 [facility] CleburneAkijkguUEOIJQUZDX1475-63-41 10:50:00 Test Item Value Reference Range Interpretation Comments Hct (test code = Hct) 24.2 42.0-54.0 [facility] CleburneLofeseqRHNFCMCTAH5276-23-41 10:50:00 Test Item Value Reference Range Interpretation Comments MCV (test code = MCV) 81.7 80.0-94.0 [facility] CleburneHrxmhrtUJTYIIGOOY5470-81-61 10:50:00 Test Item Value Reference Range Interpretation Comments Platelet (test code = Platelet) 200 133-450 [facility] CleburneDvuvjifGCAJHNHMKY9843-17-10 10:50:00 Test Item Value Reference Range Interpretation Comments RDW (test code = RDW) 18.4 11.5-14.5 [facility] CleburneZqqutbxWTJXVIETVL8375-99-04 10:50:00 Test Item Value Reference Range Interpretation Comments MPV (test code = MPV) 8.2 7.4-10.4 [facility] CleburneHqjspufDASCQIJTVK1557-42-58 10:50:00 Test Item Value Reference Range Interpretation Comments RBC (test code = RBC) 2.96 4.70-6.10 [facility] CleburneJbhdkdpTBASGPZGYQ4597-28-77 10:50:00 Test Item Value Reference Range Interpretation Comments Hgb (test code = Hgb) 7.8 14.0-18.0 [facility] CleburneHhtsdyiUYOSEKBYAG1102-52-84 10:50:00 Test Item Value Reference Range Interpretation Comments WBC (test code = WBC) 7.0 3.7-10.4 [place] 95369019-03-17 10:50:00 Test Item Value Reference Range Interpretation Comments Vanco Tr (test code = Vanco Tr) 21.8 [facility]ZxvgmwhONAJWQMQBK5265-62-85 10:50:00 Test Item Value Reference Range Interpretation Comments Vanco Tr TND (test code = Vanco Tr TND) unk [facility] ZCHCP6969-44-15 10:50:00 Test Item Value Reference Range Interpretation Comments Magnesium Lvl (test code = Magnesium 1.8 1.8-2.4 Lvl) [facility]2019-03-17 10:50:00 Test Item Value Reference Range Interpretation Comments Phosphorus (test code = Phosphorus) 3.3 2.5-4.5 [facility] HospitalXdujlujZSLGTOQCEGIR9517-85-39 10:50:00 Test Item Value Reference Range Interpretation Comments AGAP (test code = AGAP) 9.9 10.0-20.0 [facility] HospitalOnwfateAQJUWAIYBJLH3239-70-59 10:50:00 Test Item Value Reference Range Interpretation Comments Calcium Lvl (test code = Calcium Lvl) 7.9 8.5-10.5 [facility] HospitalHgqfvltRPWEUFHIDBEH7434-33-89 10:50:00 Test Item Value Reference Range Interpretation Comments eGFR (test code = eGFR) 101 [facility] HospitalUffffgjVYGTUWLMRHYU7895-54-08 10:50:00 Test Item Value Reference Range Interpretation Comments Creatinine Lvl (test code = Creatinine 0.72 0.50-1.40 Lvl) [facility] HospitalUhoalycUXRTKTIABYHN0872-10-81 10:50:00 Test Item Value Reference Range Interpretation Comments Sodium Lvl (test code = Sodium Lvl) 143 135-145 [facility] HospitalCquljaaVSEEETYFBBJT2278-39-91 10:50:00 Test Item Value Reference Range Interpretation Comments Potassium Lvl (test code = Potassium 3.9 3.5-5.1 Lvl) [facility] HospitalNwtpccyAJKZSJRXMESL3332-70-78 10:50:00 Test Item Value Reference Range Interpretation Comments Chloride Lvl (test code = Chloride Lvl) 109 95-109 [facility] HospitalYwlldlkJHVLKSJYJMCT0955-05-99 10:50:00 Test Item Value Reference Range Interpretation Comments BUN (test code = BUN) 15 7-22 [facility] HospitalEaetvbgVIGDBZRLUBDI7802-49-30 10:50:00 Test Item Value Reference Range Interpretation Comments CO2 (test code = CO2) 28 24-32 [facility] HospitalKcfprcmXAYGAAQNTKTR6875-54-45 10:50:00 Test Item Value Reference Range Interpretation Comments Glucose Lvl (test code = Glucose Lvl) 121 70-99 [facility] CleburneHirhsraUHJHXGNTMM8323-51-34 10:50:00 Test Item Value Reference Range Interpretation Comments Basophils # (test code 0.1 See_Comment [Aut omated message] The = Basophils #) system which generated this result tra nsmitted reference range : <=0.2. The reference r ondina was not used to int erpret this result as normal/abnormal . [facility] CleburneRbjpgvvKYTIHVRXXG8871-80-79 10:50:00 Test Item Value Reference Range Interpretation Comments Neutrophils # (test code = Neutrophils 4.6 1.5-8.1 #) [facility] CleburneWvitfuvKQQGCWSJJD6289-88-72 10:50:00 Test Item Value Reference Range Interpretation Comments Lymphocytes # (test code = Lymphocytes 1.5 1.0-5.5 #) [facility] CleburneLcxmgliSBXMBROPWG2956-10-00 10:50:00 Test Item Value Reference Range Interpretation Comments Lymphocytes (test code = Lymphocytes) 22.0 20.0-40.0 [facility] CleburneBioyvhlETTZHJJHBD7419-82-94 10:50:00 Test Item Value Reference Range Interpretation Comments Monocytes (test code = Monocytes) 6.9 2.0-12.0 [facility] CleburneCghisejMNPQAUOSOR5748-05-91 10:50:00 Test Item Value Reference Range Interpretation Comments Basophils (test code = 0.7 See_Comment [Aut omated message] The Basophils) system which ge nerated this result tra nsmitted reference range : <=1.0. The reference r ondina was not used to int erpret this result as normal/abnormal . [facility] CleburneNtwjhwjAXFCEMUMVI3147-55-16 10:50:00 Test Item Value Reference Range Interpretation Comments Eosinophils (test code = 4.5 See_Comment [A utomated message] The Eosinophils) system which ge nerated this result tra nsmitted reference range : <=4.0. The reference r ondina was not used to int erpret this result as normal/abnormal . [facility] CleburneHtxqpjdRXGVYNYPCK7629-77-77 10:50:00 Test Item Value Reference Range Interpretation Comments Monocytes # (test code 0.5 See_Comment [Aut omated message] The = Monocytes #) system which generated this result tra nsmitted reference range : <=0.8. The reference r ondina was not used to int erpret this result as normal/abnormal . [facility] CleburneCbrgcacBYVDMKUOGO0882-22-22 10:50:00 Test Item Value Reference Range Interpretation Comments Eosinophils # (test code 0.3 See_Comment [A utomated message] The = Eosinophils #) system whic h generated this result tra nsmitted reference range : <=0.5. The reference r ondina was not used to int erpret this result as normal/abnormal . [facility] CleburneFlbzouqUVYPTZIJOE7219-21-76 10:50:00 Test Item Value Reference Range Interpretation Comments Segs (test code = Segs) 65.9 45.0-75.0 [facility] CleburneYybiaklAJKCFNYOAI9088-20-91 10:50:00 Test Item Value Reference Range Interpretation Comments MCH (test code = MCH) 26.3 pg 27.0-31.0 [facility] CleburneUtujwheNDDIZOHFAO9936-81-21 10:50:00 Test Item Value Reference Range Interpretation Comments MCHC (test code = MCHC) 32.2 32.0-36.0 [place] [facility]pzgfmnDZTZWPGCLY5301-62-87 10:50:00 Test Item Value Reference Range Interpretation Comments Hct (test code = Hct) 24.2 42.0-54.0 [facility]neTruyzydSOYKZBJVGW9383-36-35 10:50:00 Test Item Value Reference Range Interpretation Comments MCV (test code = MCV) 81.7 80.0-94.0 [facility]neAwhisflODIQSSZRXE7333-02-13 10:50:00 Test Item Value Reference Range Interpretation Comments Platelet (test code = Platelet) 200 133-450 [facility]neRyivrgjMOLPHPSJNJ7652-29-10 10:50:00 Test Item Value Reference Range Interpretation Comments RDW (test code = RDW) 18.4 11.5-14.5 [facility]neZpcbkerIOHTMMWNRG2514-93-29 10:50:00 Test Item Value Reference Range Interpretation Comments MPV (test code = MPV) 8.2 7.4-10.4 [facility]neChhadgnHYOFBGXKYZ8841-27-42 10:50:00 Test Item Value Reference Range Interpretation Comments RBC (test code = RBC) 2.96 4.70-6.10 [facility]neNvnebyaOQOLZZZDTJ7684-05-55 10:50:00 Test Item Value Reference Range Interpretation Comments Hgb (test code = Hgb) 7.8 14.0-18.0 [facility]neEhdvyviTVRRDADFUS4176-95-67 10:50:00 Test Item Value Reference Range Interpretation Comments WBC (test code = WBC) 7.0 3.7-10.4 [facility]fh[facility]uYTWQDQZBRG8579-78-77 10:50:00 Test Item Value Reference Range Interpretation Comments Vanco Tr (test code = Vanco Tr) 21.8 [place] [id number] 10:50:00 Test Item Value Reference Range Interpretation Comments Vanco Tr TND (test code = Vanco Tr TND) unk [facility]2019-03-17 10:50:00 Test Item Value Reference Range Interpretation Comments Magnesium Lvl (test code = Magnesium 1.8 1.8-2.4 Lvl) [facility]2019-03-17 10:50:00 Test Item Value Reference Range Interpretation Comments Phosphorus (test code = Phosphorus) 3.3 2.5-4.5 [facility]CbmvmopOVMCJRSFGFNZ6276-52-96 10:50:00 Test Item Value Reference Range Interpretation Comments AGAP (test code = AGAP) 9.9 10.0-20.0 [facility] HospitalGhnfpujVKYYDACGYTGG8006-05-30 10:50:00 Test Item Value Reference Range Interpretation Comments Calcium Lvl (test code = Calcium Lvl) 7.9 8.5-10.5 [facility] HospitalAvbmttvWRQDWWEXIZIS6265-59-20 10:50:00 Test Item Value Reference Range Interpretation Comments eGFR (test code = eGFR) 101 [facility] HospitalDgiorhvVFTIWRUDRZCV5457-23-70 10:50:00 Test Item Value Reference Range Interpretation Comments Creatinine Lvl (test code = Creatinine 0.72 0.50-1.40 Lvl) [facility] HospitalQuafwbgTUIUBWRGQEVT4713-13-27 10:50:00 Test Item Value Reference Range Interpretation Comments Sodium Lvl (test code = Sodium Lvl) 143 135-145 [facility] HospitalQyrwkkwFLKYRYRYABHR0246-63-52 10:50:00 Test Item Value Reference Range Interpretation Comments Potassium Lvl (test code = Potassium 3.9 3.5-5.1 Lvl) [facility] HospitalUoawabiYIVUWIOWKTJD8230-53-16 10:50:00 Test Item Value Reference Range Interpretation Comments Chloride Lvl (test code = Chloride Lvl) 109 95-109 [facility] HospitalXxjlramVRJGFMAMRQZW7656-31-82 10:50:00 Test Item Value Reference Range Interpretation Comments BUN (test code = BUN) 15 7-22 [facility] HospitalAtwxkjtUKWMEVCGHHXZ5848-62-78 10:50:00 Test Item Value Reference Range Interpretation Comments CO2 (test code = CO2) 28 24-32 [facility] HospitalJqgkynbAIGFWYHQGEYJ5198-05-13 10:50:00 Test Item Value Reference Range Interpretation Comments Glucose Lvl (test code = Glucose Lvl) 121 70-99 [facility]neHzklxxpFUTMMOZEHS0732-76-17 10:50:00 Test Item Value Reference Range Interpretation Comments Basophils # (test code = Basophils #) 0.1 <=0.2 [facility]neRtqdjqoQAYPWPYMNE5060-70-78 10:50:00 Test Item Value Reference Range Interpretation Comments Neutrophils # (test code = Neutrophils 4.6 1.5-8.1 #) [facility]neYsxzhgdMUYSMMHRFC9920-74-63 10:50:00 Test Item Value Reference Range Interpretation Comments Lymphocytes # (test code = Lymphocytes 1.5 1.0-5.5 #) [facility]nePxabsidQPFJBUDTGC3090-58-87 10:50:00 Test Item Value Reference Range Interpretation Comments Lymphocytes (test code = Lymphocytes) 22.0 20.0-40.0 [facility]neXqpvighENFLWJGKII6770-54-12 10:50:00 Test Item Value Reference Range Interpretation Comments Monocytes (test code = Monocytes) 6.9 2.0-12.0 [facility]neJlixholXWPGCCGKKX0839-39-38 10:50:00 Test Item Value Reference Range Interpretation Comments Basophils (test code = Basophils) 0.7 <=1.0 [facility]neNvciqxcRQRKTNLXIB2165-99-18 10:50:00 Test Item Value Reference Range Interpretation Comments Eosinophils (test code = Eosinophils) 4.5 <=4.0 [facility]neWzokmqjCLNTNJZRIV7938-29-51 10:50:00 Test Item Value Reference Range Interpretation Comments Monocytes # (test code = Monocytes #) 0.5 <=0.8 [facility]neUjgmshcMMCOFZNOOC2167-18-40 10:50:00 Test Item Value Reference Range Interpretation Comments Eosinophils # (test code = Eosinophils 0.3 <=0.5 #) [facility]neBxjefizHTKOURTQYI8686-15-27 10:50:00 Test Item Value Reference Range Interpretation Comments Segs (test code = Segs) 65.9 45.0-75.0 [facility]neMjwcffeMCTSVHLOAI3988-67-53 10:50:00 Test Item Value Reference Range Interpretation Comments MCH (test code = MCH) 26.3 pg 27.0-31.0 [facility]WewnxwpCHDFNHCPIT2962-75-20 10:50:00 Test Item Value Reference Range Interpretation Comments MCHC (test code = MCHC) 32.2 32.0-36.0 [facility] TexasDzpvitjFYREWCLBKZ9330-64-60 10:50:00 Test Item Value Reference Range Interpretation Comments Hct (test code = Hct) 24.2 42.0-54.0 [facility] TexasFxzmikjKRVUJBBCBM8048-35-82 10:50:00 Test Item Value Reference Range Interpretation Comments MCV (test code = MCV) 81.7 80.0-94.0 [facility]neTndqpzxQQDQCISQBH7684-55-43 10:50:00 Test Item Value Reference Range Interpretation Comments Platelet (test code = Platelet) 200 133-450 [facility]neJknmavmILFNKUJVFR1981-11-83 10:50:00 Test Item Value Reference Range Interpretation Comments RDW (test code = RDW) 18.4 11.5-14.5 [facility] TexasUupbmrqIDJXLUAWCI6898-08-47 10:50:00 Test Item Value Reference Range Interpretation Comments MPV (test code = MPV) 8.2 7.4-10.4 [facility] TexasFlrfkskHCONOYVQIZ8990-80-92 10:50:00 Test Item Value Reference Range Interpretation Comments RBC (test code = RBC) 2.96 4.70-6.10 [facility] TexasGnfjjzrJTAUVKUWYP0531-09-51 10:50:00 Test Item Value Reference Range Interpretation Comments Hgb (test code = Hgb) 7.8 14.0-18.0 [facility] TexasYhryzmxDSRVUWUYXX0461-82-57 10:50:00 Test Item Value Reference Range Interpretation Comments WBC (test code = WBC) 7.0 3.7-10.4 [facility]JmugybsZSQCKVPYOL9803-85-97 10:50:00 Test Item Value Reference Range Interpretation Comments Vanco Tr (test code = Vanco Tr) 21.8 [facility] TexasGybxppvJLWONIXBXB8639-25-60 10:50:00 Test Item Value Reference Range Interpretation Comments Vanco Tr TND (test code = Vanco Tr TND) unk [facility]2019-03-16 09:08:00 Test Item Value Reference Range Interpretation Comments Bili Total (test code = Bili Total) 0.6 0.2-1.3 [facility]2019-03-16 09:08:00 Test Item Value Reference Range Interpretation Comments Total Protein (test code = Total 6.5 6.4-8.4 Protein) [facility]2019-03-16 09:08:00 Test Item Value Reference Range Interpretation Comments Alk Phos (test code = Alk Phos) 71 39-136 [facility]2019-03-16 09:08:00 Test Item Value Reference Range Interpretation Comments ALT (test code = ALT) 12 See_Comment [Auto mated message] The system which ge nerated this result transmit garrett reference range : <=65. The reference range was not used to interpr et this result as cassie l/abnormal. [place] 962879-03-16 09:08:00 Test Item Value Reference Range Interpretation Comments AST (test code = AST) 12 See_Comment [Auto mated message] The system which ge nerated this result transmit garrett reference range : <=37. The reference range was not used to interpr et this result as cassie l/abnormal. [facility]2019-03-16 09:08:00 Test Item Value Reference Range Interpretation Comments Albumin Lvl (test code = Albumin Lvl) 2.5 3.5-5.0 [place] 962879-03-16 09:08:00 Test Item Value Reference Range Interpretation Comments A/G Ratio (test code = A/G Ratio) 0.6 1 0.7-1.6 [place] 962879-03-16 09:08:00 Test Item Value Reference Range Interpretation Comments Globulin (test code = Globulin) 4.0 2.7-4.2 [place] 962879-03-16 09:08:00 Test Item Value Reference Range Interpretation Comments B/C Ratio (test code = B/C Ratio) 19 1 6-25 [facility]2019-03-16 09:08:00 Test Item Value Reference Range Interpretation Comments Bili Total (test code = Bili Total) 0.6 0.2-1.3 [place] 962879-03-16 09:08:00 Test Item Value Reference Range Interpretation Comments Total Protein (test code = Total 6.5 6.4-8.4 Protein) [facility]2019-03-16 09:08:00 Test Item Value Reference Range Interpretation Comments Alk Phos (test code = Alk Phos) 71 39-136 [facility]2019-03-16 09:08:00 Test Item Value Reference Range Interpretation Comments ALT (test code = ALT) 12 See_Comment [Auto mated message] The system which ge nerated this result transmit garrett reference range : <=65. The reference range was not used to interpr et this result as cassie l/abnormal. [facility]2019-03-16 09:08:00 Test Item Value Reference Range Interpretation Comments AST (test code = AST) 12 See_Comment [Auto mated message] The system which ge nerated this result transmit garrett reference range : <=37. The reference range was not used to interpr et this result as cassie l/abnormal. [place] 962879-03-16 09:08:00 Test Item Value Reference Range Interpretation Comments Albumin Lvl (test code = Albumin Lvl) 2.5 3.5-5.0 [place] 962879-03-16 09:08:00 Test Item Value Reference Range Interpretation Comments A/G Ratio (test code = A/G Ratio) 0.6 1 0.7-1.6 [facility]2019-03-16 09:08:00 Test Item Value Reference Range Interpretation Comments Globulin (test code = Globulin) 4.0 2.7-4.2 [facility]2019-03-16 09:08:00 Test Item Value Reference Range Interpretation Comments B/C Ratio (test code = B/C Ratio) 19 1 6-25 [place] 962879-03-16 09:08:00 Test Item Value Reference Range Interpretation Comments Bili Total (test code = Bili Total) 0.6 0.2-1.3 [place] 962879-03-16 09:08:00 Test Item Value Reference Range Interpretation Comments Total Protein (test code = Total 6.5 6.4-8.4 Protein) [place] 962879-03-16 09:08:00 Test Item Value Reference Range Interpretation Comments Alk Phos (test code = Alk Phos) 71 39-136 [facility]CHE[facility] [id number] 09:08:00 Test Item Value Reference Range Interpretation Comments ALT (test code = ALT) 12 See_Comment [Auto mated message] The system which ge nerated this result transmit garrett reference range : <=65. The reference range was not used to interpr et this result as cassie l/abnormal. [facility] [id number] 09:08:00 Test Item Value Reference Range Interpretation Comments AST (test code = AST) 12 See_Comment [Auto mated message] The system which ge nerated this result transmit garrett reference range : <=37. The reference range was not used to interpr et this result as cassie l/abnormal. [facility] [id number] 09:08:00 Test Item Value Reference Range Interpretation Comments Albumin Lvl (test code = Albumin Lvl) 2.5 3.5-5.0 [facility] [id number] 09:08:00 Test Item Value Reference Range Interpretation Comments A/G Ratio (test code = A/G Ratio) 0.6 1 0.7-1.6 [facility] [id number] 09:08:00 Test Item Value Reference Range Interpretation Comments Globulin (test code = Globulin) 4.0 2.7-4.2 [facility] [id number] 09:08:00 Test Item Value Reference Range Interpretation Comments B/C Ratio (test code = B/C Ratio) 19 1 6-25 [facility] [id number] 09:08:00 Test Item Value Reference Range Interpretation Comments Bili Total (test code = Bili Total) 0.6 0.2-1.3 [facility] [id number] 09:08:00 Test Item Value Reference Range Interpretation Comments Total Protein (test code = Total 6.5 6.4-8.4 Protein) [facility] [id number] 09:08:00 Test Item Value Reference Range Interpretation Comments Alk Phos (test code = Alk Phos) 71 39-136 [facility] [id number] 09:08:00 Test Item Value Reference Range Interpretation Comments ALT (test code = ALT) 12 <=65 [facility] [employer] [id number] 09:08:00 Test Item Value Reference Range Interpretation Comments AST (test code = AST) 12 <=37 [facility]2019-03-16 09:08:00 Test Item Value Reference Range Interpretation Comments Albumin Lvl (test code = Albumin Lvl) 2.5 3.5-5.0 [place] 962879-03-16 09:08:00 Test Item Value Reference Range Interpretation Comments A/G Ratio (test code = A/G Ratio) 0.6 1 0.7-1.6 [place] 962879-03-16 09:08:00 Test Item Value Reference Range Interpretation Comments Globulin (test code = Globulin) 4.0 2.7-4.2 [place] 962879-03-16 09:08:00 Test Item Value Reference Range Interpretation Comments B/C Ratio (test code = B/C Ratio) 19 1 6-25 [place] 962879-03-16 09:08:00 Test Item Value Reference Range Interpretation Comments Bili Total (test code = Bili Total) 0.6 0.2-1.3 [place] 962879-03-16 09:08:00 Test Item Value Reference Range Interpretation Comments Total Protein (test code = Total 6.5 6.4-8.4 Protein) [facility]2019-03-16 09:08:00 Test Item Value Reference Range Interpretation Comments Alk Phos (test code = Alk Phos) 71 39-136 [facility]2019-03-16 09:08:00 Test Item Value Reference Range Interpretation Comments ALT (test code = ALT) 12 See_Comment [Auto mated message] The system which ge nerated this result transmit garrett reference range : <=65. The reference range was not used to interpr et this result as cassie l/abnormal. [facility]2019-03-16 09:08:00 Test Item Value Reference Range Interpretation Comments AST (test code = AST) 12 See_Comment [Auto mated message] The system which ge nerated this result transmit garrett reference range : <=37. The reference range was not used to interpr et this result as cassie l/abnormal. [place] 962879-03-16 09:08:00 Test Item Value Reference Range Interpretation Comments Albumin Lvl (test code = Albumin Lvl) 2.5 3.5-5.0 [facility]2019-03-16 09:08:00 Test Item Value Reference Range Interpretation Comments A/G Ratio (test code = A/G Ratio) 0.6 1 0.7-1.6 [facility]2019-03-16 09:08:00 Test Item Value Reference Range Interpretation Comments Globulin (test code = Globulin) 4.0 2.7-4.2 [facility]2019-03-16 09:08:00 Test Item Value Reference Range Interpretation Comments B/C Ratio (test code = B/C Ratio) 19 08-27 [facility]2019-03-16 09:08:00 Test Item Value Reference Range Interpretation Comments Bili Total (test code = Bili Total) 0.6 0.2-1.3 [facility]2019-03-16 09:08:00 Test Item Value Reference Range Interpretation Comments Total Protein (test code = Total 6.5 6.4-8.4 Protein) [facility]2019-03-16 09:08:00 Test Item Value Reference Range Interpretation Comments Alk Phos (test code = Alk Phos) 71 39-136 [facility]2019-03-16 09:08:00 Test Item Value Reference Range Interpretation Comments ALT (test code = ALT) 12 <=65 [facility]2019-03-16 09:08:00 Test Item Value Reference Range Interpretation Comments AST (test code = AST) 12 <=37 [facility]2019-03-16 09:08:00 Test Item Value Reference Range Interpretation Comments Albumin Lvl (test code = Albumin Lvl) 2.5 3.5-5.0 [facility]2019-03-16 09:08:00 Test Item Value Reference Range Interpretation Comments A/G Ratio (test code = A/G Ratio) 0.6 1 0.7-1.6 [facility]2019-03-16 09:08:00 Test Item Value Reference Range Interpretation Comments Globulin (test code = Globulin) 4.0 2.7-4.2 [facility]2019-03-16 09:08:00 Test Item Value Reference Range Interpretation Comments B/C Ratio (test code = B/C Ratio) 19 1 6-25 [place] [id number] 20:56:00 Test Item Value Reference Range Interpretation Comments INR (test code = INR) 0.89 1 0.85-1.17 [id number] 20:56:00 Test Item Value Reference Range Interpretation Comments PT (test code = PT) 11.9 s 12.0-14.7 [facility]neTnsfquwDNMOGMNKWT0401-64-13 20:56:00 Test Item Value Reference Range Interpretation Comments INR (test code = INR) 0.89 1 0.85-1.17 [facility]neJsteefdCQZEDYSTZA5211-05-50 20:56:00 Test Item Value Reference Range Interpretation Comments PT (test code = PT) 11.9 s 12.0-14.7 [facility]neXujzaavXNGSWINQDY7359-99-01 20:56:00 Test Item Value Reference Range Interpretation Comments INR (test code = INR) 0.89 1 0.85-1.17 [facility]neRwavhvtRVENTMJNJN9510-50-90 20:56:00 Test Item Value Reference Range Interpretation Comments PT (test code = PT) 11.9 s 12.0-14.7 [facility]nePadkixhCNTLMDYTBK0722-60-02 20:56:00 Test Item Value Reference Range Interpretation Comments INR (test code = INR) 0.89 1 0.85-1.17 [facility]nePhvzuwoCBLFKDLJWB6601-18-67 20:56:00 Test Item Value Reference Range Interpretation Comments PT (test code = PT) 11.9 s 12.0-14.7 [facility]neXhtopaaCKFCJGRLLT3325-69-33 20:56:00 Test Item Value Reference Range Interpretation Comments INR (test code = INR) 0.89 1 0.85-1.17 [facility]neMwzdfnqYPKNYJKXLT2772-69-82 20:56:00 Test Item Value Reference Range Interpretation Comments PT (test code = PT) 11.9 s 12.0-14.7 [facility]neNeinmjuAWARFTEKGF4103-68-62 20:56:00 Test Item Value Reference Range Interpretation Comments INR (test code = INR) 0.89 1 0.85-1.17 [facility]neOusidrvUIWCBUILNR1264-31-18 20:56:00 Test Item Value Reference Range Interpretation Comments PT (test code = PT) 11.9 s 12.0-14.7 [facility]2019-03-15 15:16:00 Test Item Value Reference Range Interpretation Comments RBC product (test code Product available = RBC product) 1(05/17/18 10:16 AM) [facility] [id number] 15:16:00 Test Item Value Reference Range Interpretation Comments RBC product (test code Product available = RBC product) 1(05/17/18 10:16 AM) [facility] [id number] 15:16:00 Test Item Value Reference Range Interpretation Comments RBC product (test code Product available = RBC product) 1(05/17/18 10:16 AM) [facility] [id number] 15:16:00 Test Item Value Reference Range Interpretation Comments RBC product (test code Product available = RBC product) 1(05/17/18 10:16 AM) [facility] [id number] 15:16:00 Test Item Value Reference Range Interpretation Comments RBC product (test code Product available = RBC product) 1(05/17/18 10:16 AM) [facility] [id number] 15:16:00 Test Item Value Reference Range Interpretation Comments RBC product (test code Product available = RBC product) 1(05/17/18 10:16 AM) [facility] [id number] 13:26:00 Test Item Value Reference Range Interpretation Comments Antibody Scrn (test Negative (05/17/18 8:26 code = Antibody Scrn) AM) [facility] [id number] 13:26:00 Test Item Value Reference Range Interpretation Comments ABO/Rh (test code = ABO/Rh) A POS [facility] [id number] 13:26:00 Test Item Value Reference Range Interpretation Comments Antibody Scrn (test Negative (05/17/18 8:26 code = Antibody Scrn) AM) [facility] [id number] 13:26:00 Test Item Value Reference Range Interpretation Comments ABO/Rh (test code = ABO/Rh) A POS [facility] [id number] 13:26:00 Test Item Value Reference Range Interpretation Comments Antibody Scrn (test Negative (05/17/18 8:26 code = Antibody Scrn) AM) [facility] [id number] 13:26:00 Test Item Value Reference Range Interpretation Comments ABO/Rh (test code = ABO/Rh) A POS [facility] [employer] [id number] 13:26:00 Test Item Value Reference Range Interpretation Comments Antibody Scrn (test Negative (05/17/18 8:26 code = Antibody Scrn) AM) [facility] [employer] [id number] 13:26:00 Test Item Value Reference Range Interpretation Comments ABO/Rh (test code = ABO/Rh) A POS [facility] [employer] [id number] 13:26:00 Test Item Value Reference Range Interpretation Comments Antibody Scrn (test Negative (05/17/18 8:26 code = Antibody Scrn) AM) [facility] [employer] [id number] 13:26:00 Test Item Value Reference Range Interpretation Comments ABO/Rh (test code = ABO/Rh) A POS [facility] [employer] [id number] 13:26:00 Test Item Value Reference Range Interpretation Comments Antibody Scrn (test Negative (05/17/18 8:26 code = Antibody Scrn) AM) [facility] [employer] [id number] 13:26:00 Test Item Value Reference Range Interpretation Comments ABO/Rh (test code = ABO/Rh) A POS [facility] [id number] 09:48:00 Test Item Value Reference Range Interpretation Comments Phosphorus (test code = Phosphorus) 3.2 2.5-4.5 [facility] [id number] 09:48:00 Test Item Value Reference Range Interpretation Comments Bili Total (test code = Bili Total) 0.7 0.2-1.3 [facility] [id number] 09:48:00 Test Item Value Reference Range Interpretation Comments Total Protein (test code = Total 5.9 6.4-8.4 Protein) [facility] [id number] 09:48:00 Test Item Value Reference Range Interpretation Comments Albumin Lvl (test code = Albumin Lvl) 2.5 3.5-5.0 [facility] [id number] 09:48:00 Test Item Value Reference Range Interpretation Comments Alk Phos (test code = Alk Phos) 80 39-136 [facility]2019-03-15 09:48:00 Test Item Value Reference Range Interpretation Comments ALT (test code = ALT) 12 See_Comment [Auto mated message] The system which ge nerated this result transmit garrett reference range : <=65. The reference range was not used to interpr et this result as cassie l/abnormal. [facility]2019-03-15 09:48:00 Test Item Value Reference Range Interpretation Comments AST (test code = AST) 8 See_Comment [Auto mated message] The system which ge nerated this result transmit garrett reference range : <=37. The reference range was not used to interpr et this result as cassie l/abnormal. [facility]2019-03-15 09:48:00 Test Item Value Reference Range Interpretation Comments A/G Ratio (test code = A/G Ratio) 0.7 1 0.7-1.6 [place] [id number] 09:48:00 Test Item Value Reference Range Interpretation Comments Globulin (test code = Globulin) 3.4 2.7-4.2 [place] [id number] 09:48:00 Test Item Value Reference Range Interpretation Comments B/C Ratio (test code = B/C Ratio) 14 1 6-25 [facility]2019-03-15 09:48:00 Test Item Value Reference Range Interpretation Comments Magnesium Lvl (test code = Magnesium 1.8 1.8-2.4 Lvl) [facility]58[facility]-75 09:48:00 Test Item Value Reference Range Interpretation Comments INR (test code = INR) 1.15 1 0.85-1.17 [facility]FzyczauNTWYZMILLV4922-01-29 09:48:00 Test Item Value Reference Range Interpretation Comments PT (test code = PT) 14.5 s 12.0-14.7 [facility]LthjfezMSHIZIAGNJ0079-55-14 09:48:00 Test Item Value Reference Range Interpretation Comments PTT (test code = PTT) 43.8 s 22.9-35.8 [place] 962879-03-15 09:48:00 Test Item Value Reference Range Interpretation Comments Phosphorus (test code = Phosphorus) 3.2 2.5-4.5 [facility]2019-03-15 09:48:00 Test Item Value Reference Range Interpretation Comments Bili Total (test code = Bili Total) 0.7 0.2-1.3 [facility]2019-03-15 09:48:00 Test Item Value Reference Range Interpretation Comments Total Protein (test code = Total 5.9 6.4-8.4 Protein) [facility]2019-03-15 09:48:00 Test Item Value Reference Range Interpretation Comments Albumin Lvl (test code = Albumin Lvl) 2.5 3.5-5.0 [facility]2019-03-15 09:48:00 Test Item Value Reference Range Interpretation Comments Alk Phos (test code = Alk Phos) 80 39-136 [facility]2019-03-15 09:48:00 Test Item Value Reference Range Interpretation Comments ALT (test code = ALT) 12 See_Comment [Auto mated message] The system which ge nerated this result transmit garrett reference range : <=65. The reference range was not used to interpr et this result as cassie l/abnormal. [facility]2019-03-15 09:48:00 Test Item Value Reference Range Interpretation Comments AST (test code = AST) 8 See_Comment [Auto mated message] The system which ge nerated this result transmit garrett reference range : <=37. The reference range was not used to interpr et this result as cassie l/abnormal. [facility]2019-03-15 09:48:00 Test Item Value Reference Range Interpretation Comments A/G Ratio (test code = A/G Ratio) 0.7 1 0.7-1.6 [facility]2019-03-15 09:48:00 Test Item Value Reference Range Interpretation Comments Globulin (test code = Globulin) 3.4 2.7-4.2 [facility]2019-03-15 09:48:00 Test Item Value Reference Range Interpretation Comments B/C Ratio (test code = B/C Ratio) 14 1 6-25 [facility]2019-03-15 09:48:00 Test Item Value Reference Range Interpretation Comments Magnesium Lvl (test code = Magnesium 1.8 1.8-2.4 Lvl) [facility]QTH6111-71-89 09:48:00 Test Item Value Reference Range Interpretation Comments INR (test code = INR) 1.15 1 0.85-1.17 [facility]neFrtjbuaCUNBJYJIVS7814-79-02 09:48:00 Test Item Value Reference Range Interpretation Comments PT (test code = PT) 14.5 s 12.0-14.7 [address]03-15 09:48:00 Test Item Value Reference Range Interpretation Comments PTT (test code = PTT) 43.8 s 22.9-35.8 [place] 962879-03-15 09:48:00 Test Item Value Reference Range Interpretation Comments Phosphorus (test code = Phosphorus) 3.2 2.5-4.5 [place] 962879-03-15 09:48:00 Test Item Value Reference Range Interpretation Comments Bili Total (test code = Bili Total) 0.7 0.2-1.3 [place] [address]-03-15 09:48:00 Test Item Value Reference Range Interpretation Comments Total Protein (test code = Total 5.9 6.4-8.4 Protein) [place] 962879-03-15 09:48:00 Test Item Value Reference Range Interpretation Comments Albumin Lvl (test code = Albumin Lvl) 2.5 3.5-5.0 [place] 962879-03-15 09:48:00 Test Item Value Reference Range Interpretation Comments Alk Phos (test code = Alk Phos) 80 39-136 [place] 962879-03-15 09:48:00 Test Item Value Reference Range Interpretation Comments ALT (test code = ALT) 12 See_Comment [Auto mated message] The system which ge nerated this result transmit garrett reference range : <=65. The reference range was not used to interpr et this result as cassie l/abnormal. [place] 962879-03-15 09:48:00 Test Item Value Reference Range Interpretation Comments AST (test code = AST) 8 See_Comment [Auto mated message] The system which ge nerated this result transmit garrett reference range : <=37. The reference range was not used to interpr et this result as cassie l/abnormal. [place] 962879-03-15 09:48:00 Test Item Value Reference Range Interpretation Comments A/G Ratio (test code = A/G Ratio) 0.7 1 0.7-1.6 [facility]2019-03-15 09:48:00 Test Item Value Reference Range Interpretation Comments Globulin (test code = Globulin) 3.4 2.7-4.2 [facility]2019-03-15 09:48:00 Test Item Value Reference Range Interpretation Comments B/C Ratio (test code = B/C Ratio) 14 1 6-25 [facility]2019-03-15 09:48:00 Test Item Value Reference Range Interpretation Comments Magnesium Lvl (test code = Magnesium 1.8 1.8-2.4 Lvl) [facility]neVepelysCNBNRDAQEC2626-43-16 09:48:00 Test Item Value Reference Range Interpretation Comments INR (test code = INR) 1.15 1 0.85-1.17 [facility]neZiihemvFDUEIFYBKL5587-39-98 09:48:00 Test Item Value Reference Range Interpretation Comments PT (test code = PT) 14.5 s 12.0-14.7 [facility]neCcbumjxJKXKUVIYSA0143-29-78 09:48:00 Test Item Value Reference Range Interpretation Comments PTT (test code = PTT) 43.8 s 22.9-35.8 [facility]2019-03-15 09:48:00 Test Item Value Reference Range Interpretation Comments Phosphorus (test code = Phosphorus) 3.2 2.5-4.5 [facility]2019-03-15 09:48:00 Test Item Value Reference Range Interpretation Comments Bili Total (test code = Bili Total) 0.7 0.2-1.3 [facility]2019-03-15 09:48:00 Test Item Value Reference Range Interpretation Comments Total Protein (test code = Total 5.9 6.4-8.4 Protein) [facility]2019-03-15 09:48:00 Test Item Value Reference Range Interpretation Comments Albumin Lvl (test code = Albumin Lvl) 2.5 3.5-5.0 [facility]2019-03-15 09:48:00 Test Item Value Reference Range Interpretation Comments Alk Phos (test code = Alk Phos) 80 39-136 [facility]2019-03-15 09:48:00 Test Item Value Reference Range Interpretation Comments ALT (test code = ALT) 12 <=65 [facility]2019-03-15 09:48:00 Test Item Value Reference Range Interpretation Comments AST (test code = AST) 8 <=37 [place] 962879-03-15 09:48:00 Test Item Value Reference Range Interpretation Comments A/G Ratio (test code = A/G Ratio) 0.7 1 0.7-1.6 [place] 962879-03-15 09:48:00 Test Item Value Reference Range Interpretation Comments Globulin (test code = Globulin) 3.4 2.7-4.2 [facility]2019-03-15 09:48:00 Test Item Value Reference Range Interpretation Comments B/C Ratio (test code = B/C Ratio) 14 1 6-25 [place] 962879-03-15 09:48:00 Test Item Value Reference Range Interpretation Comments Magnesium Lvl (test code = Magnesium 1.8 1.8-2.4 Lvl) [facility]neTnqjsscKFOBCABLHL5366-97-51 09:48:00 Test Item Value Reference Range Interpretation Comments INR (test code = INR) 1.15 1 0.85-1.17 [place] 085099-03-15 09:48:00 Test Item Value Reference Range Interpretation Comments PT (test code = PT) 14.5 s 12.0-14.7 [place] [address]-03-15 09:48:00 Test Item Value Reference Range Interpretation Comments PTT (test code = PTT) 43.8 s 22.9-35.8 [place] 962879-03-15 09:48:00 Test Item Value Reference Range Interpretation Comments Phosphorus (test code = Phosphorus) 3.2 2.5-4.5 [facility]2019-03-15 09:48:00 Test Item Value Reference Range Interpretation Comments Bili Total (test code = Bili Total) 0.7 0.2-1.3 [place] 962879-03-15 09:48:00 Test Item Value Reference Range Interpretation Comments Total Protein (test code = Total 5.9 6.4-8.4 Protein) [facility]2019-03-15 09:48:00 Test Item Value Reference Range Interpretation Comments Albumin Lvl (test code = Albumin Lvl) 2.5 3.5-5.0 [place] 962879-03-15 09:48:00 Test Item Value Reference Range Interpretation Comments Alk Phos (test code = Alk Phos) 80 39-136 [place] 962879-03-15 09:48:00 Test Item Value Reference Range Interpretation Comments ALT (test code = ALT) 12 See_Comment [Auto mated message] The system which ge nerated this result transmit garrett reference range : <=65. The reference range was not used to interpr et this result as cassie l/abnormal. [place] [address]-03-15 09:48:00 Test Item Value Reference Range Interpretation Comments AST (test code = AST) 8 See_Comment [Auto mated message] The system which ge nerated this result transmit garrett reference range : <=37. The reference range was not used to interpr et this result as cassie l/abnormal. [place] 962879-03-15 09:48:00 Test Item Value Reference Range Interpretation Comments A/G Ratio (test code = A/G Ratio) 0.7 1 0.7-1.6 [place] [address]-03-15 09:48:00 Test Item Value Reference Range Interpretation Comments Globulin (test code = Globulin) 3.4 2.7-4.2 [place] [address]-03-15 09:48:00 Test Item Value Reference Range Interpretation Comments B/C Ratio (test code = B/C Ratio) 14 1 6-[address]03-15 09:48:00 Test Item Value Reference Range Interpretation Comments Magnesium Lvl (test code = Magnesium 1.8 1.8-2.4 Lvl) [place] 085099-03-15 09:48:00 Test Item Value Reference Range Interpretation Comments INR (test code = INR) 1.15 1 0.85-1.[address]03-15 09:48:00 Test Item Value Reference Range Interpretation Comments PT (test code = PT) 14.5 s 12.0-14.7 [place] 085099-03-15 09:48:00 Test Item Value Reference Range Interpretation Comments PTT (test code = PTT) 43.8 s 22.9-35.8 [place] 962879-03-15 09:48:00 Test Item Value Reference Range Interpretation Comments Phosphorus (test code = Phosphorus) 3.2 2.5-4.5 [facility]2019-03-15 09:48:00 Test Item Value Reference Range Interpretation Comments Bili Total (test code = Bili Total) 0.7 0.2-1.3 [place] 962879-03-15 09:48:00 Test Item Value Reference Range Interpretation Comments Total Protein (test code = Total 5.9 6.4-8.4 Protein) [facility]2019-03-15 09:48:00 Test Item Value Reference Range Interpretation Comments Albumin Lvl (test code = Albumin Lvl) 2.5 3.5-5.0 [facility]2019-03-15 09:48:00 Test Item Value Reference Range Interpretation Comments Alk Phos (test code = Alk Phos) 80 39-136 [facility]2019-03-15 09:48:00 Test Item Value Reference Range Interpretation Comments ALT (test code = ALT) 12 <=65 [facility]2019-03-15 09:48:00 Test Item Value Reference Range Interpretation Comments AST (test code = AST) 8 <=37 [facility]2019-03-15 09:48:00 Test Item Value Reference Range Interpretation Comments A/G Ratio (test code = A/G Ratio) 0.7 1 0.7-1.6 [facility]2019-03-15 09:48:00 Test Item Value Reference Range Interpretation Comments Globulin (test code = Globulin) 3.4 2.7-4.2 [facility]2019-03-15 09:48:00 Test Item Value Reference Range Interpretation Comments B/C Ratio (test code = B/C Ratio) 14 1 6-25 [place] 962879-03-15 09:48:00 Test Item Value Reference Range Interpretation Comments Magnesium Lvl (test code = Magnesium 1.8 1.8-2.4 Lvl) [facility]QnigkdfIOSXEVGNJM9614-19-17 09:48:00 Test Item Value Reference Range Interpretation Comments INR (test code = INR) 1.15 1 0.85-1.17 [facility]neMbsvugxPKQLTUOWAB8252-74-38 09:48:00 Test Item Value Reference Range Interpretation Comments PT (test code = PT) 14.5 s 12.0-14.7 [facility]UM[facility]VR8638[facility]46-30 09:48:00 Test Item Value Reference Range Interpretation Comments PTT (test code = PTT) 43.8 s 22.9-35.8 [facility]2019-03-14 10:21:00 Test Item Value Reference Range Interpretation Comments AST (test code = AST) 6 See_Comment [Auto mated message] The system which ge nerated this result transmit garrett reference range : <=37. The reference range was not used to interpr et this result as cassie l/abnormal. [facility]2019-03-14 10:21:00 Test Item Value Reference Range Interpretation Comments A/G Ratio (test code = A/G Ratio) 0.7 1 0.7-1.6 [facility]2019-03-14 10:21:00 Test Item Value Reference Range Interpretation Comments Total Protein (test code = Total 5.8 6.4-8.4 Protein) [facility]2019-03-14 10:21:00 Test Item Value Reference Range Interpretation Comments Globulin (test code = Globulin) 3.4 2.7-4.2 [facility]2019-03-14 10:21:00 Test Item Value Reference Range Interpretation Comments B/C Ratio (test code = B/C Ratio) 15 1 6-25 [facility]2019-03-14 10:21:00 Test Item Value Reference Range Interpretation Comments ALT (test code = ALT) 11 See_Comment [Auto mated message] The system which ge nerated this result transmit garrett reference range : <=65. The reference range was not used to interpr et this result as cassie l/abnormal. [facility]2019-03-14 10:21:00 Test Item Value Reference Range Interpretation Comments Bili Total (test code = Bili Total) 1.6 0.2-1.3 [facility]2019-03-14 10:21:00 Test Item Value Reference Range Interpretation Comments Albumin Lvl (test code = Albumin Lvl) 2.4 3.5-5.0 [facility]2019-03-14 10:21:00 Test Item Value Reference Range Interpretation Comments Alk Phos (test code = Alk Phos) 75 39-136 [facility]2019-03-14 10:21:00 Test Item Value Reference Range Interpretation Comments Magnesium Lvl (test code = Magnesium 1.8 1.8-2.4 Lvl) [facility]2019-03-14 10:21:00 Test Item Value Reference Range Interpretation Comments Phosphorus (test code = Phosphorus) 3.0 2.5-4.5 [facility]cdxmuqRKSXWYGDYK1119-69-71 10:21:00 Test Item Value Reference Range Interpretation Comments Vanco Lvl (test code = Vanco Lvl) 16.6 [facility]2019-03-14 10:21:00 Test Item Value Reference Range Interpretation Comments AST (test code = AST) 6 See_Comment [Auto mated message] The system which ge nerated this result transmit garrett reference range : <=37. The reference range was not used to interpr et this result as cassie l/abnormal. [facility]2019-03-14 10:21:00 Test Item Value Reference Range Interpretation Comments A/G Ratio (test code = A/G Ratio) 0.7 1 0.7-1.6 [facility]2019-03-14 10:21:00 Test Item Value Reference Range Interpretation Comments Total Protein (test code = Total 5.8 6.4-8.4 Protein) [facility]2019-03-14 10:21:00 Test Item Value Reference Range Interpretation Comments Globulin (test code = Globulin) 3.4 2.7-4.2 [facility]2019-03-14 10:21:00 Test Item Value Reference Range Interpretation Comments B/C Ratio (test code = B/C Ratio) 15 1 6-25 [facility]2019-03-14 10:21:00 Test Item Value Reference Range Interpretation Comments ALT (test code = ALT) 11 See_Comment [Auto mated message] The system which ge nerated this result transmit garrett reference range : <=65. The reference range was not used to interpr et this result as cassie l/abnormal. [facility]2019-03-14 10:21:00 Test Item Value Reference Range Interpretation Comments Bili Total (test code = Bili Total) 1.6 0.2-1.3 [facility]2019-03-14 10:21:00 Test Item Value Reference Range Interpretation Comments Albumin Lvl (test code = Albumin Lvl) 2.4 3.5-5.0 [facility]2019-03-14 10:21:00 Test Item Value Reference Range Interpretation Comments Alk Phos (test code = Alk Phos) 75 39-136 [facility]2019-03-14 10:21:00 Test Item Value Reference Range Interpretation Comments Magnesium Lvl (test code = Magnesium 1.8 1.8-2.4 Lvl) [facility]2019-03-14 10:21:00 Test Item Value Reference Range Interpretation Comments Phosphorus (test code = Phosphorus) 3.0 2.5-4.5 [facility]XbwugjaJDKHAPUTLW2670-53-30 10:21:00 Test Item Value Reference Range Interpretation Comments Vanco Lvl (test code = Vanco Lvl) 16.6 [facility]2019-03-14 10:21:00 Test Item Value Reference Range Interpretation Comments AST (test code = AST) 6 See_Comment [Auto mated message] The system which ge nerated this result transmit garrett reference range : <=37. The reference range was not used to interpr et this result as cassie l/abnormal. [facility]2019-03-14 10:21:00 Test Item Value Reference Range Interpretation Comments A/G Ratio (test code = A/G Ratio) 0.7 1 0.7-1.6 [facility]2019-03-14 10:21:00 Test Item Value Reference Range Interpretation Comments Total Protein (test code = Total 5.8 6.4-8.4 Protein) [facility]2019-03-14 10:21:00 Test Item Value Reference Range Interpretation Comments Globulin (test code = Globulin) 3.4 2.7-4.2 [facility]2019-03-14 10:21:00 Test Item Value Reference Range Interpretation Comments B/C Ratio (test code = B/C Ratio) 15 1 6-25 [facility]2019-03-14 10:21:00 Test Item Value Reference Range Interpretation Comments ALT (test code = ALT) 11 See_Comment [Auto mated message] The system which ge nerated this result transmit garrett reference range : <=65. The reference range was not used to interpr et this result as cassie l/abnormal. [facility]2019-03-14 10:21:00 Test Item Value Reference Range Interpretation Comments Bili Total (test code = Bili Total) 1.6 0.2-1.3 [facility]2019-03-14 10:21:00 Test Item Value Reference Range Interpretation Comments Albumin Lvl (test code = Albumin Lvl) 2.4 3.5-5.0 [facility]2019-03-14 10:21:00 Test Item Value Reference Range Interpretation Comments Alk Phos (test code = Alk Phos) 75 39-136 [facility]2019-03-14 10:21:00 Test Item Value Reference Range Interpretation Comments Magnesium Lvl (test code = Magnesium 1.8 1.8-2.4 Lvl) [facility]2019-03-14 10:21:00 Test Item Value Reference Range Interpretation Comments Phosphorus (test code = Phosphorus) 3.0 2.5-4.5 [facility]KcrjfjjZQKFFHBTZB8528-26-88 10:21:00 Test Item Value Reference Range Interpretation Comments Vanco Lvl (test code = Vanco Lvl) 16.6 [facility]2019-03-14 10:21:00 Test Item Value Reference Range Interpretation Comments AST (test code = AST) 6 <=37 [facility]2019-03-14 10:21:00 Test Item Value Reference Range Interpretation Comments A/G Ratio (test code = A/G Ratio) 0.7 1 0.7-1.6 [facility]2019-03-14 10:21:00 Test Item Value Reference Range Interpretation Comments Total Protein (test code = Total 5.8 6.4-8.4 Protein) [facility]2019-03-14 10:21:00 Test Item Value Reference Range Interpretation Comments Globulin (test code = Globulin) 3.4 2.7-4.2 [facility]2019-03-14 10:21:00 Test Item Value Reference Range Interpretation Comments B/C Ratio (test code = B/C Ratio) 15 1 6-25 [facility]2019-03-14 10:21:00 Test Item Value Reference Range Interpretation Comments ALT (test code = ALT) 11 <=65 [facility]2019-03-14 10:21:00 Test Item Value Reference Range Interpretation Comments Bili Total (test code = Bili Total) 1.6 0.2-1.3 [facility]2019-03-14 10:21:00 Test Item Value Reference Range Interpretation Comments Albumin Lvl (test code = Albumin Lvl) 2.4 3.5-5.0 [facility]2019-03-14 10:21:00 Test Item Value Reference Range Interpretation Comments Alk Phos (test code = Alk Phos) 75 39-136 [facility]2019-03-14 10:21:00 Test Item Value Reference Range Interpretation Comments Magnesium Lvl (test code = Magnesium 1.8 1.8-2.4 Lvl) [facility]2019-03-14 10:21:00 Test Item Value Reference Range Interpretation Comments Phosphorus (test code = Phosphorus) 3.0 2.5-4.5 [facility]PllqnhbKBKRXCTNYM0246-81-94 10:21:00 Test Item Value Reference Range Interpretation Comments Vanco Lvl (test code = Vanco Lvl) 16.6 [facility]2019-03-14 10:21:00 Test Item Value Reference Range Interpretation Comments AST (test code = AST) 6 See_Comment [Auto mated message] The system which ge nerated this result transmit garrett reference range : <=37. The reference range was not used to interpr et this result as cassie l/abnormal. [facility]2019-03-14 10:21:00 Test Item Value Reference Range Interpretation Comments A/G Ratio (test code = A/G Ratio) 0.7 1 0.7-1.6 [facility]2019-03-14 10:21:00 Test Item Value Reference Range Interpretation Comments Total Protein (test code = Total 5.8 6.4-8.4 Protein) [facility]2019-03-14 10:21:00 Test Item Value Reference Range Interpretation Comments Globulin (test code = Globulin) 3.4 2.7-4.2 [facility]2019-03-14 10:21:00 Test Item Value Reference Range Interpretation Comments B/C Ratio (test code = B/C Ratio) 15 1 6-25 [place] 962879-03-14 10:21:00 Test Item Value Reference Range Interpretation Comments ALT (test code = ALT) 11 See_Comment [Auto mated message] The system which ge nerated this result transmit garrett reference range : <=65. The reference range was not used to interpr et this result as cassie l/abnormal. [facility]2019-03-14 10:21:00 Test Item Value Reference Range Interpretation Comments Bili Total (test code = Bili Total) 1.6 0.2-1.3 [facility]2019-03-14 10:21:00 Test Item Value Reference Range Interpretation Comments Albumin Lvl (test code = Albumin Lvl) 2.4 3.5-5.0 [facility]2019-03-14 10:21:00 Test Item Value Reference Range Interpretation Comments Alk Phos (test code = Alk Phos) 75 39-136 [facility]2019-03-14 10:21:00 Test Item Value Reference Range Interpretation Comments Magnesium Lvl (test code = Magnesium 1.8 1.8-2.4 Lvl) [facility]2019-03-14 10:21:00 Test Item Value Reference Range Interpretation Comments Phosphorus (test code = Phosphorus) 3.0 2.5-4.5 [facility]SbrqnmpRBVZPKDHML2742-06-88 10:21:00 Test Item Value Reference Range Interpretation Comments Vanco Lvl (test code = Vanco Lvl) 16.6 [facility]2019-03-14 10:21:00 Test Item Value Reference Range Interpretation Comments AST (test code = AST) 6 <=37 [facility]2019-03-14 10:21:00 Test Item Value Reference Range Interpretation Comments A/G Ratio (test code = A/G Ratio) 0.7 1 0.7-1.6 [facility]2019-03-14 10:21:00 Test Item Value Reference Range Interpretation Comments Total Protein (test code = Total 5.8 6.4-8.4 Protein) [facility]2019-03-14 10:21:00 Test Item Value Reference Range Interpretation Comments Globulin (test code = Globulin) 3.4 2.7-4.2 [facility]2019-03-14 10:21:00 Test Item Value Reference Range Interpretation Comments B/C Ratio (test code = B/C Ratio) 15 1 6-25 [facility]2019-03-14 10:21:00 Test Item Value Reference Range Interpretation Comments ALT (test code = ALT) 11 <=65 [facility]2019-03-14 10:21:00 Test Item Value Reference Range Interpretation Comments Bili Total (test code = Bili Total) 1.6 0.2-1.3 [facility]2019-03-14 10:21:00 Test Item Value Reference Range Interpretation Comments Albumin Lvl (test code = Albumin Lvl) 2.4 3.5-5.0 [facility]2019-03-14 10:21:00 Test Item Value Reference Range Interpretation Comments Alk Phos (test code = Alk Phos) 75 [phone] [facility]2019-03-14 10:21:00 Test Item Value Reference Range Interpretation Comments Magnesium Lvl (test code = Magnesium 1.8 1.8-2.4 Lvl) [facility]2019-03-14 10:21:00 Test Item Value Reference Range Interpretation Comments Phosphorus (test code = Phosphorus) 3.0 2.5-4.5 [id number] 10:21:00 Test Item Value Reference Range Interpretation Comments Vanco Lvl (test code = Vanco Lvl) 16.6 [facility]PARATHYROID [id number] 08:07:00 Test Item Value Reference Range Interpretation Comments Ca Norm WB (test code = Ca Norm WB) 1.15 1.05-1.25 [facility]annPARATHYROID [id number] 08:07:00 Test Item Value Reference Range Interpretation Comments Ca Ion WB (test code = Ca Ion WB) 1.15 1.05-1.25 [facility]annPARATHYROID [id number] 08:07:00 Test Item Value Reference Range Interpretation Comments Ca Norm WB (test code = Ca Norm WB) 1.15 1.05-1.25 [facility]annPARATHYROID [id number] 08:07:00 Test Item Value Reference Range Interpretation Comments Ca Ion WB (test code = Ca Ion WB) 1.15 1.05-1.25 [facility]annPARATHYROID [id number] 08:07:00 Test Item Value Reference Range Interpretation Comments Ca Norm WB (test code = Ca Norm WB) 1.15 1.05-1.25 [facility]annCOP[facility] SPR[facility] HOSPITALATHYROID [id number] 08:07:00 Test Item Value Reference Range Interpretation Comments Ca Ion WB (test code = Ca Ion WB) 1.15 1.05-1.25 [facility]ATH[facility]LY [id number] 08:07:00 Test Item Value Reference Range Interpretation Comments Ca Norm WB (test code = Ca Norm WB) 1.15 1.05-1.25 [facility]annCOP[facility] HOSPITALATHYFORMERLY [facility] [id number] 08:07:00 Test Item Value Reference Range Interpretation Comments Ca Ion WB (test code = Ca Ion WB) 1.15 1.05-1.25 [facility]annCOP[facility] HOSPITALATHYFORMERLY [facility] [id number] 08:07:00 Test Item Value Reference Range Interpretation Comments Ca Norm WB (test code = Ca Norm WB) 1.15 1.05-1.25 [facility] HospitalATHYFORMERLY [facility] [id number] 08:07:00 Test Item Value Reference Range Interpretation Comments Ca Ion WB (test code = Ca Ion WB) 1.15 1.05-1.25 [facility] HospitalATHYFORMERLY [facility] [id number] 08:07:00 Test Item Value Reference Range Interpretation Comments Ca Norm WB (test code = Ca Norm WB) 1.15 1.05-1.25 [facility] HospitalATHYFORMERLY [facility] [id number] 08:07:00 Test Item Value Reference Range Interpretation Comments Ca Ion WB (test code = Ca Ion WB) 1.15 1.05-1.25 [facility] HospitalATHYFORMERLY [facility] [id number] 08:41:00 Test Item Value Reference Range Interpretation Comments Ca Norm WB (test code = Ca Norm WB) 1.11 1.05-1.25 [facility]annCOP[facility]INGS [facility] HOSPITALATHYFORMERLY [facility] [id number] 08:41:00 Test Item Value Reference Range Interpretation Comments Ca Ion WB (test code = Ca Ion WB) 1.09 1.05-1.25 [facility] HospitalATHYFORMERLY [facility] [id number] 08:41:00 Test Item Value Reference Range Interpretation Comments Ca Norm WB (test code = Ca Norm WB) 1.11 1.05-1.25 [facility]2019-03-12 08:41:00 Test Item Value Reference Range Interpretation Comments Ca Ion WB (test code = Ca Ion WB) 1.09 1.05-1.25 [facility]2019-03-12 08:41:00 Test Item Value Reference Range Interpretation Comments Ca Norm WB (test code = Ca Norm WB) 1.11 1.05-1.25 [facility]2019-03-12 08:41:00 Test Item Value Reference Range Interpretation Comments Ca Ion WB (test code = Ca Ion WB) 1.09 1.05-1.25 [facility]2019-03-12 08:41:00 Test Item Value Reference Range Interpretation Comments Ca Norm WB (test code = Ca Norm WB) 1.11 1.05-1.25 [facility]2019-03-12 08:41:00 Test Item Value Reference Range Interpretation Comments Ca Ion WB (test code = Ca Ion WB) 1.09 1.05-1.25 [facility]2019-03-12 08:41:00 Test Item Value Reference Range Interpretation Comments Ca Norm WB (test code = Ca Norm WB) 1.11 1.05-1.25 [facility]2019-03-12 08:41:00 Test Item Value Reference Range Interpretation Comments Ca Ion WB (test code = Ca Ion WB) 1.09 1.05-1.25 [facility]2019-03-12 08:41:00 Test Item Value Reference Range Interpretation Comments Ca Norm WB (test code = Ca Norm WB) 1.11 1.05-1.25 [facility]2019-03-12 08:41:00 Test Item Value Reference Range Interpretation Comments Ca Ion WB (test code = Ca Ion WB) 1.09 1.05-1.25 [facility] [id number] 04:19:00 Test Item Value Reference Range Interpretation Comments RBC product (test code Product available = RBC product) 2(05/13/18 11:19 PM) [facility] [id number] 04:19:00 Test Item Value Reference Range Interpretation Comments RBC product (test code Product available = RBC product) 2(05/13/18 11:19 PM) [facility] [id number] 04:19:00 Test Item Value Reference Range Interpretation Comments RBC product (test code Product available = RBC product) 2(05/13/18 11:19 PM) [facility] [id number] 04:19:00 Test Item Value Reference Range Interpretation Comments RBC product (test code Product available = RBC product) 2(05/13/18 11:19 PM) [facility] [id number] 04:19:00 Test Item Value Reference Range Interpretation Comments RBC product (test code Product available = RBC product) 2(05/13/18 11:19 PM) [facility] [id number] 04:19:00 Test Item Value Reference Range Interpretation Comments RBC product (test code Product available = RBC product) 2(05/13/18 11:19 PM) [facility] [id number] 02:42:00 Test Item Value Reference Range Interpretation Comments RBC product (test code Product available = RBC product) 3(05/13/18 9:42 PM) [facility] [id number] 02:42:00 Test Item Value Reference Range Interpretation Comments RBC product (test code Product available = RBC product) 3(05/13/18 9:42 PM) [facility] [id number] 02:42:00 Test Item Value Reference Range Interpretation Comments RBC product (test code Product available = RBC product) 3(05/13/18 9:42 PM) [facility] [id number] 02:42:00 Test Item Value Reference Range Interpretation Comments RBC product (test code Product available = RBC product) 3(05/13/18 9:42 PM) [facility] [id number] 02:42:00 Test Item Value Reference Range Interpretation Comments RBC product (test code Product available = RBC product) 3(05/13/18 9:42 PM) [facility] [id number] 02:42:00 Test Item Value Reference Range Interpretation Comments RBC product (test code Product available = RBC product) 3(05/13/18 9:42 PM) [facility]2019-03-12 01:42:00 Test Item Value Reference Range Interpretation Comments Lactic Acid Lvl (test code = Lactic 0.9 0.5-2.2 Acid Lvl) [id number] 01:42:00 Test Item Value Reference Range Interpretation Comments PT (test code = PT) 13.9 s 12.0-14.7 [place] [id number] 01:42:00 Test Item Value Reference Range Interpretation Comments INR (test code = INR) 1.09 1 0.85-1.17 [place] [id number] 01:42:00 Test Item Value Reference Range Interpretation Comments PTT (test code = PTT) 29.8 s 22.9-35.8 [facility]2019-03-12 01:42:00 Test Item Value Reference Range Interpretation Comments Lactic Acid Lvl (test code = Lactic 0.9 0.5-2.2 Acid Lvl) [id number] 01:42:00 Test Item Value Reference Range Interpretation Comments PT (test code = PT) 13.9 s 12.0-14.7 [facility]neMknozrlGMKDTTZWSL1458-69-06 01:42:00 Test Item Value Reference Range Interpretation Comments INR (test code = INR) 1.09 1 0.85-1.17 [facility]neEtxpatkJVOVLHOELS2025-92-03 01:42:00 Test Item Value Reference Range Interpretation Comments PTT (test code = PTT) 29.8 s 22.9-35.8 [facility]2019-03-12 01:42:00 Test Item Value Reference Range Interpretation Comments Lactic Acid Lvl (test code = Lactic 0.9 0.5-2.2 Acid Lvl) [facility] C[id number] 01:42:00 Test Item Value Reference Range Interpretation Comments PT (test code = PT) 13.9 s 12.0-14.7 [place] [id number] 01:42:00 Test Item Value Reference Range Interpretation Comments INR (test code = INR) 1.09 1 0.85-1.17 [facility] Cle[facility]neSdziurdSJQXIZRTEZ0369-71-47 01:42:00 Test Item Value Reference Range Interpretation Comments PTT (test code = PTT) 29.8 s 22.9-35.8 [facility]2019-03-12 01:42:00 Test Item Value Reference Range Interpretation Comments Lactic Acid Lvl (test code = Lactic 0.9 0.5-2.2 Acid Lvl) [id number] 01:42:00 Test Item Value Reference Range Interpretation Comments PT (test code = PT) 13.9 s 12.0-14.7 [place] 085099-03-12 01:42:00 Test Item Value Reference Range Interpretation Comments INR (test code = INR) 1.09 1 0.85-1.17 [facility]neChhrstlIZSAUEIQXH2481-02-51 01:42:00 Test Item Value Reference Range Interpretation Comments PTT (test code = PTT) 29.8 s 22.9-35.8 [facility]2019-03-12 01:42:00 Test Item Value Reference Range Interpretation Comments Lactic Acid Lvl (test code = Lactic 0.9 0.5-2.2 Acid Lvl) [id number] 01:42:00 Test Item Value Reference Range Interpretation Comments PT (test code = PT) 13.9 s 12.0-14.7 [facility] C[id number] 01:42:00 Test Item Value Reference Range Interpretation Comments INR (test code = INR) 1.09 1 0.85-1.17 [facility] CleburneHygovzsJSJBSHFCZT6086-66-98 01:42:00 Test Item Value Reference Range Interpretation Comments PTT (test code = PTT) 29.8 s 22.9-35.8 [facility]2019-03-12 01:42:00 Test Item Value Reference Range Interpretation Comments Lactic Acid Lvl (test code = Lactic 0.9 0.5-2.2 Acid Lvl) [id number] 01:42:00 Test Item Value Reference Range Interpretation Comments PT (test code = PT) 13.9 s 12.0-14.7 [facility] Cle[id number] 01:42:00 Test Item Value Reference Range Interpretation Comments INR (test code = INR) 1.09 1 0.85-1.17 [id number] 01:42:00 Test Item Value Reference Range Interpretation Comments PTT (test code = PTT) 29.8 s 22.9-35.8 [facility]: Vwngawjxi9415-18-10 13:11:00 Test Item Value Reference Range Interpretation Comments Culture: Anaerobic No Anaerobes Isolated (test code = Culture: Anaerobic) [facility] Stain [id number] 13:11:00 Test Item Value Reference Range Interpretation Comments Gram Stain Report No Wbc'S Or Organisms (test code = Gram Seen Stain Report) [facility]: Aspirate/Body Fluid/[id number] 13:11:00 Test Item Value Reference Range Interpretation Comments Culture: Aspirate/Body Fluid/Tissue No Growth (test code = Culture: Aspirate/Body Fluid/Tissue) [facility] [place]: Rkngvlajk1463-28-22 13:11:00 Test Item Value Reference Range Interpretation Comments Culture: Anaerobic No Anaerobes Isolated (test code = Culture: Anaerobic) [facility] Stain [id number] 13:11:00 Test Item Value Reference Range Interpretation Comments Gram Stain Report No Wbc'S Or Organisms (test code = Gram Seen Stain Report) [facility]: Aspirate/Body Fluid/Gcbilq5347-16-57 13:11:00 Test Item Value Reference Range Interpretation Comments Culture: Aspirate/Body Fluid/Tissue No Growth (test code = Culture: Aspirate/Body Fluid/Tissue) [facility] [place]: Cqzqmnpwe5156-72-72 13:11:00 Test Item Value Reference Range Interpretation Comments Culture: Anaerobic No Anaerobes Isolated (test code = Culture: Anaerobic) [facility] Stain [id number] 13:11:00 Test Item Value Reference Range Interpretation Comments Gram Stain Report No Wbc'S Or Organisms (test code = Gram Seen Stain Report) [facility]: Aspirate/Body Fluid/Aypmoj7573-52-76 13:11:00 Test Item Value Reference Range Interpretation Comments Culture: Aspirate/Body Fluid/Tissue No Growth (test code = Culture: Aspirate/Body Fluid/Tissue) [facility] [place]: Mkrnqummf6214-60-93 13:11:00 Test Item Value Reference Range Interpretation Comments Culture: Anaerobic No Anaerobes Isolated (test code = Culture: Anaerobic) [facility] Stain [id number] 13:11:00 Test Item Value Reference Range Interpretation Comments Gram Stain Report No Wbc'S Or Organisms (test code = Gram Seen Stain Report) [facility]: Aspirate/Body Fluid/Dqkdjq6877-08-86 13:11:00 Test Item Value Reference Range Interpretation Comments Culture: Aspirate/Body Fluid/Tissue No Growth (test code = Culture: Aspirate/Body Fluid/Tissue) [facility]: Piptcvpnr3614-87-87 13:11:00 Test Item Value Reference Range Interpretation Comments Culture: Anaerobic No Anaerobes Isolated (test code = Culture: Anaerobic) [facility] Stain Qplwyt9664-01-03 13:11:00 Test Item Value Reference Range Interpretation Comments Gram Stain Report No Wbc'S Or Organisms (test code = Gram Seen Stain Report) [facility]: Aspirate/Body Fluid/Rgyfas5455-38-30 13:11:00 Test Item Value Reference Range Interpretation Comments Culture: Aspirate/Body Fluid/Tissue No Growth (test code = Culture: Aspirate/Body Fluid/Tissue) [facility]: Chuhpppjh7874-67-36 13:11:00 Test Item Value Reference Range Interpretation Comments Culture: Anaerobic No Anaerobes Isolated (test code = Culture: Anaerobic) [facility] Stain [id number] 13:11:00 Test Item Value Reference Range Interpretation Comments Gram Stain Report No Wbc'S Or Organisms (test code = Gram Seen Stain Report) [facility]: Aspirate/Body Fluid/Ukdesb0654-06-53 13:11:00 Test Item Value Reference Range Interpretation Comments Culture: Aspirate/Body Fluid/Tissue No Growth (test code = Culture: Aspirate/Body Fluid/Tissue) [facility]neJqdpowjAOLHPOBEKX2821-45-56 10:03:00 Test Item Value Reference Range Interpretation Comments Sed Rate (test code = 33 See_Comment [Auto mated message] The Sed Rate) system which ge nerated this result transmit garrett reference range : <=15. The reference range was not used to interpr et this result as cassie l/abnormal. [facility]neBmadeptIJQWPMACPK2743-45-15 10:03:00 Test Item Value Reference Range Interpretation Comments PTT (test code = PTT) 32.6 s 22.9-35.8 [facility]ElqgmgsAQYWBCBUHH5240-06-30 10:03:00 Test Item Value Reference Range Interpretation Comments C-REACTIVE PROTEIN (test code = 12.4 C-REACTIVE PROTEIN) [facility] CleburneFvobgicZKAJUGPZNH2589-05-56 10:03:00 Test Item Value Reference Range Interpretation Comments Sed Rate (test code = 33 See_Comment [Auto mated message] The Sed Rate) system which ge nerated this result transmit garrett reference range : <=15. The reference range was not used to interpr et this result as cassie l/abnormal. [facility] CleburneTudeuncGNAILUIZWP5798-12-75 10:03:00 Test Item Value Reference Range Interpretation Comments PTT (test code = PTT) 32.6 s 22.9-35.8 [facility]eweswnXPOCKEUXGB4576-14-98 10:03:00 Test Item Value Reference Range Interpretation Comments C-REACTIVE PROTEIN (test code = 12.4 C-REACTIVE PROTEIN) [facility] CleburneZjymwdtRPBQYYZYMS7723-08-42 10:03:00 Test Item Value Reference Range Interpretation Comments Sed Rate (test code = 33 See_Comment [Auto mated message] The Sed Rate) system which ge nerated this result transmit garrett reference range : <=15. The reference range was not used to interpr et this result as cassie l/abnormal. [facility] Cle[facility]neFztyhdcVBJVTAADOE5108-76-27 10:03:00 Test Item Value Reference Range Interpretation Comments PTT (test code = PTT) 32.6 s 22.9-35.8 [facility] CenterMeqcjnyJQFQTTHKOP0645-15-21 10:03:00 Test Item Value Reference Range Interpretation Comments C-REACTIVE PROTEIN (test code = 12.4 C-REACTIVE PROTEIN) [facility] Cle[facility]neKtvpkxfYXLYYSPNRP2026-76-03 10:03:00 Test Item Value Reference Range Interpretation Comments Sed Rate (test code = Sed Rate) 33 <=15 [facility] CleburneDggsvijDMKEOWLTJG2519-56-73 10:03:00 Test Item Value Reference Range Interpretation Comments PTT (test code = PTT) 32.6 s 22.9-35.8 [facility] CenterNkrmomgUQMTOWONUV8490-78-42 10:03:00 Test Item Value Reference Range Interpretation Comments C-REACTIVE PROTEIN (test code = 12.4 C-REACTIVE PROTEIN) [facility] CleburneLegqocuRJVHNDOFXJ6355-67-00 10:03:00 Test Item Value Reference Range Interpretation Comments Sed Rate (test code = 33 See_Comment [Auto mated message] The Sed Rate) system which ge nerated this result transmit garrett reference range : <=15. The reference range was not used to interpr et this result as cassie l/abnormal. [facility] TexasTuilboqTRVJUUKRJU6806-34-09 10:03:00 Test Item Value Reference Range Interpretation Comments PTT (test code = PTT) 32.6 s 22.9-35.8 [facility] TexasOpufqvcTCKQMXINPQ1515-02-19 10:03:00 Test Item Value Reference Range Interpretation Comments C-REACTIVE PROTEIN (test code = 12.4 C-REACTIVE PROTEIN) [facility] TexasGremovqPVDNDTPCCE8013-68-23 10:03:00 Test Item Value Reference Range Interpretation Comments Sed Rate (test code = Sed Rate) 33 <=15 [facility]jfamaaPNCVGQSJXM1376-88-42 10:03:00 Test Item Value Reference Range Interpretation Comments PTT (test code = PTT) 32.6 s 22.9-35.8 [facility] CenterMmtdtkwSXMVXGWTSR7095-42-78 10:03:00 Test Item Value Reference Range Interpretation Comments C-REACTIVE PROTEIN (test code = 12.4 C-REACTIVE PROTEIN) [facility]ys[facility] BZRQHHY4828-08-23 01:00:00 Test Item Value Reference Range Interpretation Comments Antibody Scrn (test Negative (05/12/18 8:00 code = Antibody Scrn) PM) [facility] DallasTysdo [id number] 01:00:00 Test Item Value Reference Range Interpretation Comments ABO/Rh (test code = ABO/Rh) A POS [facility] [employer] [id number] 01:00:00 Test Item Value Reference Range Interpretation Comments Antibody Scrn (test Negative (05/12/18 8:00 code = Antibody Scrn) PM) [facility] [id number] 01:00:00 Test Item Value Reference Range Interpretation Comments ABO/Rh (test code = ABO/Rh) A POS [facility] [employer] [id number] 01:00:00 Test Item Value Reference Range Interpretation Comments Antibody Scrn (test Negative (05/12/18 8:00 code = Antibody Scrn) PM) [facility] [id number] 01:00:00 Test Item Value Reference Range Interpretation Comments ABO/Rh (test code = ABO/Rh) A [facility] Going[employer] [id number] 01:00:00 Test Item Value Reference Range Interpretation Comments Antibody Scrn (test Negative (05/12/18 8:00 code = Antibody Scrn) PM) [facility] DallasKROGNI BANK [id number] 01:00:00 Test Item Value Reference Range Interpretation Comments ABO/Rh (test code = ABO/Rh) A [facility] [employer] [facility] [id number] 01:00:00 Test Item Value Reference Range Interpretation Comments Antibody Scrn (test Negative (05/12/18 8:00 code = Antibody Scrn) PM) [facility]KROGNI [facility] [id number] 01:00:00 Test Item Value Reference Range Interpretation Comments ABO/Rh (test code = ABO/Rh) A POS [facility] [employer] BANK [id number] 01:00:00 Test Item Value Reference Range Interpretation Comments Antibody Scrn (test Negative (05/12/18 8:00 code = Antibody Scrn) PM) [facility] [employer] [id number] 01:00:00 Test Item Value Reference Range Interpretation Comments ABO/Rh (test code = ABO/Rh) A POS [facility] [employer] [id number] 09:58:00 Test Item Value Reference Range Interpretation Comments Bili Direct (test code no gt See_Comment [Aut omated message] The = Bili Direct) system which generated this result tra nsmitted reference range : <=0.3. The reference r ondina was not used to int erpret this result as cassie l/abnormal. [facility] [employer] [id number] 09:58:00 Test Item Value Reference Range Interpretation Comments Bili Indirect Unable to See_Comment [Automated (test code = Bili Calculate message] T he system Indirect) which generated this result transmitted reference range : <=1.0. The reference range was not used to interpret this result as normal/abnormal . [facility] RhjorpoIIIMHDSYTW1630-81-18 09:58:00 Test Item Value Reference Range Interpretation Comments Sed Rate (test code = 30 See_Comment [Auto mated message] The Sed Rate) system which ge nerated this result transmit garrett reference range : <=15. The reference range was not used to interpr et this result as cassie l/abnormal. [facility] DallasHmcdfcwTHCTOPCXBM5832-88-37 09:58:00 Test Item Value Reference Range Interpretation Comments Microcyte (test code = 1+ *ABN*(05/12/18 Microcyte) 4:58 AM) [facility]TtbutbhQQDGNDXJZV0055-73-99 09:58:00 Test Item Value Reference Range Interpretation Comments C-REACTIVE PROTEIN (test code = 9.8 C-REACTIVE PROTEIN) [facility]2019-03-10 09:58:00 Test Item Value Reference Range Interpretation Comments Bili Direct (test code no gt See_Comment [Aut omated message] The = Bili Direct) system which generated this result tra nsmitted reference range : <=0.3. The reference r ondina was not used to int erpret this result as cassie l/abnormal. [facility]2019-03-10 09:58:00 Test Item Value Reference Range Interpretation Comments Bili Indirect Unable to See_Comment [Automated (test code = Bili Calculate message] T he system Indirect) which generated this result transmitted reference range : <=1.0. The reference range was not used to interpret this result as normal/abnormal . [facility] CleburneGqgcxsyQTOWZRKRZW5851-91-26 09:58:00 Test Item Value Reference Range Interpretation Comments Sed Rate (test code = 30 See_Comment [Auto mated message] The Sed Rate) system which ge nerated this result transmit garrett reference range : <=15. The reference range was not used to interpr et this result as cassie l/abnormal. [facility] CleburneOizdgwfBACQNQULWV0418-40-95 09:58:00 Test Item Value Reference Range Interpretation Comments Microcyte (test code = 1+ *ABN*(05/12/18 Microcyte) 4:58 AM) [facility]FE6131[facility] 09:58:00 Test Item Value Reference Range Interpretation Comments C-REACTIVE PROTEIN (test code = 9.8 C-REACTIVE PROTEIN) [facility]2019-03-10 09:58:00 Test Item Value Reference Range Interpretation Comments Bili Direct (test code no gt See_Comment [Aut omated message] The = Bili Direct) system which generated this result tra nsmitted reference range : <=0.3. The reference r ondina was not used to int erpret this result as cassie l/abnormal. [facility]2019-03-10 09:58:00 Test Item Value Reference Range Interpretation Comments Bili Indirect Unable to See_Comment [Automated (test code = Bili Calculate message] T he system Indirect) which generated this result transmitted reference range : <=1.0. The reference range was not used to interpret this result as normal/abnormal . [id number] 09:58:00 Test Item Value Reference Range Interpretation Comments Sed Rate (test code = 30 See_Comment [Auto mated message] The Sed Rate) system which ge nerated this result transmit garrett reference range : <=15. The reference range was not used to interpr et this result as cassie l/abnormal. [facility]neArlshxoCYKCURZRSF2562-19-03 09:58:00 Test Item Value Reference Range Interpretation Comments Microcyte (test code = 1+ *ABN*(05/12/18 Microcyte) 4:58 AM) [facility]QjjglgqBFAVKQCJYC6992-27-09 09:58:00 Test Item Value Reference Range Interpretation Comments C-REACTIVE PROTEIN (test code = 9.8 C-REACTIVE PROTEIN) [facility]2019-03-10 09:58:00 Test Item Value Reference Range Interpretation Comments Bili Direct (test code = Bili Direct) no gt <=0.3 [facility]2019-03-10 09:58:00 Test Item Value Reference Range Interpretation Comments Bili Indirect (test code Unable to Calculate <=1.0 = Bili Indirect) [facility]neUignyowHLGGKYYSOD2384-73-11 09:58:00 Test Item Value Reference Range Interpretation Comments Sed Rate (test code = Sed Rate) 30 <=15 [facility]neMmglsrwCYOLYSPPNR4438-16-57 09:58:00 Test Item Value Reference Range Interpretation Comments Microcyte (test code = 1+ *ABN*(05/12/18 Microcyte) 4:58 AM) [facility]PmgswonEDCLJHXRTZ8936-51-64 09:58:00 Test Item Value Reference Range Interpretation Comments C-REACTIVE PROTEIN (test code = 9.8 C-REACTIVE PROTEIN) [facility]2019-03-10 09:58:00 Test Item Value Reference Range Interpretation Comments Bili Direct (test code no gt See_Comment [Aut omated message] The = Bili Direct) system which generated this result tra nsmitted reference range : <=0.3. The reference r ondina was not used to int erpret this result as cassie l/abnormal. [facility]2019-03-10 09:58:00 Test Item Value Reference Range Interpretation Comments Bili Indirect Unable to See_Comment [Automated (test code = Bili Calculate message] T he system Indirect) which generated this result transmitted reference range : <=1.0. The reference range was not used to interpret this result as normal/abnormal . [facility]neUotvpicRYUSYTJYSO3479-61-25 09:58:00 Test Item Value Reference Range Interpretation Comments Sed Rate (test code = 30 See_Comment [Auto mated message] The Sed Rate) system which ge nerated this result transmit garrett reference range : <=15. The reference range was not used to interpr et this result as cassie l/abnormal. [facility]neItrijqhYZXUVRVQZJ6008-87-70 09:58:00 Test Item Value Reference Range Interpretation Comments Microcyte (test code = 1+ *ABN*(05/12/18 Microcyte) 4:58 AM) [facility] CenterGvzdelzAZFNKFDXSY2572-12-25 09:58:00 Test Item Value Reference Range Interpretation Comments C-REACTIVE PROTEIN (test code = 9.8 C-REACTIVE PROTEIN) [facility]2019-03-10 09:58:00 Test Item Value Reference Range Interpretation Comments Bili Direct (test code = Bili Direct) no gt <=0.3 [facility]2019-03-10 09:58:00 Test Item Value Reference Range Interpretation Comments Bili Indirect (test code Unable to Calculate <=1.0 = Bili Indirect) [facility]neAmkokevWDYSLZGPXS5256-19-05 09:58:00 Test Item Value Reference Range Interpretation Comments Sed Rate (test code = Sed Rate) 30 <=15 [facility]neIwitgbkJHLCKHNTVA9947-71-47 09:58:00 Test Item Value Reference Range Interpretation Comments Microcyte (test code = 1+ *ABN*(05/12/18 Microcyte) 4:58 AM) [facility] CenterNeshdqkUZELCPGZOX9497-10-49 09:58:00 Test Item Value Reference Range Interpretation Comments C-REACTIVE PROTEIN (test code = 9.8 C-REACTIVE PROTEIN) [facility]2019-03-09 10:50:00 Test Item Value Reference Range Interpretation Comments Bili Indirect Unable to See_Comment [Automated (test code = Bili Calculate message] T he system Indirect) which generated this result transmitted reference range : <=1.0. The reference range was not used to interpret this result as normal/abnormal . [facility]2019-03-09 10:50:00 Test Item Value Reference Range Interpretation Comments Bili Direct (test code no gt See_Comment [Aut omated message] The = Bili Direct) system which generated this result tra nsmitted reference range : <=0.3. The reference r ondina was not used to int erpret this result as cassie l/abnormal. [facility]neNuadjjhEWCTKYGXCO4805-20-23 10:50:00 Test Item Value Reference Range Interpretation Comments Sed Rate (test code = 34 See_Comment [Auto mated message] The Sed Rate) system which ge nerated this result transmit garrett reference range : <=15. The reference range was not used to interpr et this result as cassie l/abnormal. [facility]neAinviryVUYOPOLTKQ2593-25-47 10:50:00 Test Item Value Reference Range Interpretation Comments Microcyte (test code = 1+ *ABN*(05/11/18 4:50 Microcyte) AM) [facility]KkzhvryRTDJQHPRFG1501-41-65 10:50:00 Test Item Value Reference Range Interpretation Comments C-REACTIVE PROTEIN (test code = 8.7 C-REACTIVE PROTEIN) [facility]2019-03-09 10:50:00 Test Item Value Reference Range Interpretation Comments Bili Indirect Unable to See_Comment [Automated (test code = Bili Calculate message] T he system Indirect) which generated this result transmitted reference range : <=1.0. The reference range was not used to interpret this result as normal/abnormal . [facility]2019-03-09 10:50:00 Test Item Value Reference Range Interpretation Comments Bili Direct (test code no gt See_Comment [Aut omated message] The = Bili Direct) system which generated this result tra nsmitted reference range : <=0.3. The reference r ondina was not used to int erpret this result as cassie l/abnormal. [facility]neBufaldvVQQFUTXZEN7390-88-33 10:50:00 Test Item Value Reference Range Interpretation Comments Sed Rate (test code = 34 See_Comment [Auto mated message] The Sed Rate) system which ge nerated this result transmit garrett reference range : <=15. The reference range was not used to interpr et this result as cassie l/abnormal. [id number] 10:50:00 Test Item Value Reference Range Interpretation Comments Microcyte (test code = 1+ *ABN*(05/11/18 4:50 Microcyte) AM) [facility] CenterFfvtymrUPAJHRGRLA2337-16-26 10:50:00 Test Item Value Reference Range Interpretation Comments C-REACTIVE PROTEIN (test code = 8.7 C-REACTIVE PROTEIN) [facility]2019-03-09 10:50:00 Test Item Value Reference Range Interpretation Comments Bili Indirect Unable to See_Comment [Automated (test code = Bili Calculate message] T he system Indirect) which generated this result transmitted reference range : <=1.0. The reference range was not used to interpret this result as normal/abnormal . [facility]2019-03-09 10:50:00 Test Item Value Reference Range Interpretation Comments Bili Direct (test code no gt See_Comment [Aut omated message] The = Bili Direct) system which generated this result tra nsmitted reference range : <=0.3. The reference r ondina was not used to int erpret this result as cassie l/abnormal. [id number] 10:50:00 Test Item Value Reference Range Interpretation Comments Sed Rate (test code = 34 See_Comment [Auto mated message] The Sed Rate) system which ge nerated this result transmit garrett reference range : <=15. The reference range was not used to interpr et this result as cassie l/abnormal. [id number] 10:50:00 Test Item Value Reference Range Interpretation Comments Microcyte (test code = 1+ *ABN*(05/11/18 4:50 Microcyte) AM) [facility] CenterFxvawhdYBWOVREQVP2959-46-02 10:50:00 Test Item Value Reference Range Interpretation Comments C-REACTIVE PROTEIN (test code = 8.7 C-REACTIVE PROTEIN) [facility]2019-03-09 10:50:00 Test Item Value Reference Range Interpretation Comments Bili Indirect (test code Unable to Calculate <=1.0 = Bili Indirect) [facility]2019-03-09 10:50:00 Test Item Value Reference Range Interpretation Comments Bili Direct (test code = Bili Direct) no gt <=0.3 [facility]neWprqxerCZHUATOXHU6073-22-22 10:50:00 Test Item Value Reference Range Interpretation Comments Sed Rate (test code = Sed Rate) 34 <=15 [facility][id number] 10:50:00 Test Item Value Reference Range Interpretation Comments Microcyte (test code = 1+ *ABN*(05/11/18 4:50 Microcyte) AM) [facility] CenterUzxdnbqHXFNQCREHV8173-79-58 10:50:00 Test Item Value Reference Range Interpretation Comments C-REACTIVE PROTEIN (test code = 8.7 C-REACTIVE PROTEIN) [facility]2019-03-09 10:50:00 Test Item Value Reference Range Interpretation Comments Bili Indirect Unable to See_Comment [Automated (test code = Bili Calculate message] T he system Indirect) which generated this result transmitted reference range : <=1.0. The reference range was not used to interpret this result as normal/abnormal . [facility]2019-03-09 10:50:00 Test Item Value Reference Range Interpretation Comments Bili Direct (test code no gt See_Comment [Aut omated message] The = Bili Direct) system which generated this result tra nsmitted reference range : <=0.3. The reference r ondina was not used to int erpret this result as cassie l/abnormal. [facility]neKbupkbfSSETFIGYDQ8874-45-00 10:50:00 Test Item Value Reference Range Interpretation Comments Sed Rate (test code = 34 See_Comment [Auto mated message] The Sed Rate) system which ge nerated this result transmit garrett reference range : <=15. The reference range was not used to interpr et this result as cassie l/abnormal. [facility]burneRkcutbzCATZWOECES7969-66-45 10:50:00 Test Item Value Reference Range Interpretation Comments Microcyte (test code = 1+ *ABN*(05/11/18 4:50 Microcyte) AM) [facility] CenterPshsjaxJIZHZFNLNK6903-59-72 10:50:00 Test Item Value Reference Range Interpretation Comments C-REACTIVE PROTEIN (test code = 8.7 C-REACTIVE PROTEIN) [facility]2019-03-09 10:50:00 Test Item Value Reference Range Interpretation Comments Bili Indirect (test code Unable to Calculate <=1.0 = Bili Indirect) [facility]2019-03-09 10:50:00 Test Item Value Reference Range Interpretation Comments Bili Direct (test code = Bili Direct) no gt <=0.3 [facility] TexasYddyatsYXCGUIIPNT8318-69-55 10:50:00 Test Item Value Reference Range Interpretation Comments Sed Rate (test code = Sed Rate) 34 <=15 [facility] TexasWsaqaskCMZHCSXUJD5751-51-52 10:50:00 Test Item Value Reference Range Interpretation Comments Microcyte (test code = 1+ *ABN*(05/11/18 4:50 Microcyte) AM) [facility] TexasQncqoyvMXERRYMJOF3502-71-18 10:50:00 Test Item Value Reference Range Interpretation Comments C-REACTIVE PROTEIN (test code = 8.7 C-REACTIVE PROTEIN) [facility]annMEROPENEM:SUSC:PT:ISOLATE:ORDQN:[id number] 23:28:00 Test Item Value Reference Range Interpretation Comments Gram Stain Report Rare WBC's No Organisms (test code = Gram Seen Stain Report) [facility] DallasannMEROPENEM:SUSC:PT:ISOLATE:ORDQN:[id number] 23:28:00 Test Item Value Reference Range Interpretation Comments Culture: Growth In Subculture Broth Wound/Abscess Only : Staphylococcus w/Gram Stain (test Species, Not S. aureus code = Culture: Wound/Abscess w/Gram Stain) [facility] DallasannMEROPENEM:SUSC:PT:ISOLATE:ORDQN:[id number] 23:28:00 Test Item Value Reference Range Interpretation Comments Staphylococcus Species, Staphylococcus Not S. aureus (test Species, Not S. aureus code = Staphylococcus Species, Not S. aureus) [facility] DallasannMEROPENEM:SUSC:PT:ISOLATE:ORDQN:[id number] 23:28:00 Test Item Value Reference Range Interpretation Comments Gram Stain Report Rare WBC's No Organisms (test code = Gram Seen Stain Report) [facility] DallasannMEROPENEM:SUSC:PT:ISOLATE:ORDQN:[id number] 23:28:00 Test Item Value Reference Range Interpretation Comments Culture: Growth In Subculture Broth Wound/Abscess Only : Staphylococcus w/Gram Stain (test Species, Not S. aureus code = Culture: Wound/Abscess w/Gram Stain) [facility]annMEROPENEM:SUSC:PT:ISOLATE:ORDQN:[id number] 23:28:00 Test Item Value Reference Range Interpretation Comments Staphylococcus Species, Staphylococcus Not S. aureus (test Species, Not S. aureus code = Staphylococcus Species, Not S. aureus) [facility] SoteroannMEROPENEM:SUSC:PT:ISOLATE:ORDQN:[id number] 23:28:00 Test Item Value Reference Range Interpretation Comments Gram Stain Report Rare WBC's No Organisms (test code = Gram Seen Stain Report) [facility] SoteroannMEROPENEM:SUSC:PT:ISOLATE:ORDQN:[id number] 23:28:00 Test Item Value Reference Range Interpretation Comments Culture: Growth In Subculture Broth Wound/Abscess Only : Staphylococcus w/Gram Stain (test Species, Not S. aureus code = Culture: Wound/Abscess w/Gram Stain) [facility] SoteroannMEROPENEM:SUSC:PT:ISOLATE:ORDQN:[id number] 23:28:00 Test Item Value Reference Range Interpretation Comments Staphylococcus Species, Staphylococcus Not S. aureus (test Species, Not S. aureus code = Staphylococcus Species, Not S. aureus) [facility] SoteroannMEROPENEM:SUSC:PT:ISOLATE:ORDQN:[id number] 23:28:00 Test Item Value Reference Range Interpretation Comments Gram Stain Report Rare WBC's No Organisms (test code = Gram Seen Stain Report) [facility] HermannMEROPENEM:SUSC:PT:ISOLATE:ORDQN:[id number] 23:28:00 Test Item Value Reference Range Interpretation Comments Culture: Growth In Subculture Broth Wound/Abscess Only : Staphylococcus w/Gram Stain (test Species, Not S. aureus code = Culture: Wound/Abscess w/Gram Stain) [facility] SoteroannMEROPENEM:SUSC:PT:ISOLATE:ORDQN:[id number] 23:28:00 Test Item Value Reference Range Interpretation Comments Staphylococcus Species, Staphylococcus Not S. aureus (test Species, Not S. aureus code = Staphylococcus Species, Not S. aureus) [facility] HermannMEROPENEM:SUSC:PT:ISOLATE:ORDQN:[id number] 23:28:00 Test Item Value Reference Range Interpretation Comments Gram Stain Report Rare WBC's No Organisms (test code = Gram Seen Stain Report) [facility] SoteroannMEROPENEM:SUSC:PT:ISOLATE:ORDQN:[id number] 23:28:00 Test Item Value Reference Range Interpretation Comments Culture: Growth In Subculture Broth Wound/Abscess Only : Staphylococcus w/Gram Stain (test Species, Not S. aureus code = Culture: Wound/Abscess w/Gram Stain) Sonu BautistaNEM:SUSC:PT:ISOLATE:ORDQN:[id number] 23:28:00 Test Item Value Reference Range Interpretation Comments Staphylococcus Species, Staphylococcus Not S. aureus (test Species, Not S. aureus code = Staphylococcus Species, Not S. aureus) [facility] SoteroMimaNEM:SUSC:PT:ISOLATE:ORDQN:[id number] 23:28:00 Test Item Value Reference Range Interpretation Comments Gram Stain Report Rare WBC's No Organisms (test code = Gram Seen Stain Report) [facility] SoteroladiSHELBYLEIDYNEM:SUSC:PT:ISOLATE:ORDQN:[id number] 23:28:00 Test Item Value Reference Range Interpretation Comments Culture: Growth In Subculture Broth Wound/Abscess Only : Staphylococcus w/Gram Stain (test Species, Not S. aureus code = Culture: Wound/Abscess w/Gram Stain) [facility] SoteroMimaNEM:SUSC:PT:ISOLATE:ORDQN:[id number] 23:28:00 Test Item Value Reference Range Interpretation Comments Staphylococcus Species, Staphylococcus Not S. aureus (test Species, Not S. aureus code = Staphylococcus Species, Not S. aureus) [facility] [employer] [id number] 17:06:00 Test Item Value Reference Range Interpretation Comments Procalcitonin Lvl (test no gt See_Comment [Au tomated message] code = Procalcitonin Lvl) Th e system which generated this result transmitted ref erence range: <=0.10. The reference range was not used to interpr et this result as normal/abnormal . [facility] [employer] [id number] 17:06:00 Test Item Value Reference Range Interpretation Comments Procalcitonin Lvl (test no gt See_Comment [Au tomated message] code = Procalcitonin Lvl) Th e system which generated this result transmitted ref erence range: <=0.10. The reference range was not used to interpr et this result as normal/abnormal . [facility] [employer] [id number] 17:06:00 Test Item Value Reference Range Interpretation Comments Procalcitonin Lvl (test no gt See_Comment [Au tomated message] code = Procalcitonin Lvl) Th e system which generated this result transmitted ref erence range: <=0.10. The reference range was not used to interpr et this result as normal/abnormal . [facility]2019-03-08 17:06:00 Test Item Value Reference Range Interpretation Comments Procalcitonin Lvl (test code = no gt <=0.10 Procalcitonin Lvl) [facility]2019-03-08 17:06:00 Test Item Value Reference Range Interpretation Comments Procalcitonin Lvl (test no gt See_Comment [Au tomated message] code = Procalcitonin Lvl) Th e system which generated this result transmitted ref erence range: <=0.10. The reference range was not used to interpr et this result as normal/abnormal . [facility]2019-03-08 17:06:00 Test Item Value Reference Range Interpretation Comments Procalcitonin Lvl (test code = no gt <=0.10 Procalcitonin Lvl) [id number] 09:26:00 Test Item Value Reference Range Interpretation Comments Microcyte (test code = 1+ *ABN*(05/10/18 3:26 Microcyte) AM) [id number] 09:26:00 Test Item Value Reference Range Interpretation Comments Microcyte (test code = 1+ *ABN*(05/10/18 3:26 Microcyte) AM) [id number] 09:26:00 Test Item Value Reference Range Interpretation Comments Microcyte (test code = 1+ *ABN*(05/10/18 3:26 Microcyte) AM) [facility]neSitrebqGUWIRSDSWI4561-08-21 09:26:00 Test Item Value Reference Range Interpretation Comments Microcyte (test code = 1+ *ABN*(05/10/18 3:26 Microcyte) AM) [facility] C[id number] 09:26:00 Test Item Value Reference Range Interpretation Comments Microcyte (test code = 1+ *ABN*(05/10/18 3:26 Microcyte) AM) [facility] C[id number] 09:26:00 Test Item Value Reference Range Interpretation Comments Microcyte (test code = 1+ *ABN*(05/10/18 3:26 Microcyte) AM) [facility] H[id number] 20:34:00 Test Item Value Reference Range Interpretation Comments Plt Morph (test code = Normal (05/09/18 2:34 PM) Plt Morph) [facility] HospitalJxfrbzpTBNYKZNGEK4852-17-20 20:34:00 Test Item Value Reference Range Interpretation Comments Plt Morph (test code = Normal (05/09/18 2:34 PM) Plt Morph) [facility] Ho[id number] 20:34:00 Test Item Value Reference Range Interpretation Comments Plt Morph (test code = Normal (05/09/18 2:34 PM) Plt Morph) [id number] 20:34:00 Test Item Value Reference Range Interpretation Comments Plt Morph (test code = Normal (05/09/18 2:34 PM) Plt Morph) [facility] HospitalAgmyyijIJUJZASDHN1104-05-29 20:34:00 Test Item Value Reference Range Interpretation Comments Plt Morph (test code = Normal (05/09/18 2:34 PM) Plt Morph) [facility] H[id number] 20:34:00 Test Item Value Reference Range Interpretation Comments Plt Morph (test code = Normal (05/09/18 2:34 PM) Plt Morph) [facility] [id number] 10:47:00 Test Item Value Reference Range Interpretation Comments BNP (test code = BNP) 288 [facility] [id number] 10:47:00 Test Item Value Reference Range Interpretation Comments Phosphorus (test code = Phosphorus) 3.3 2.5-4.5 [facility] [id number] 10:47:00 Test Item Value Reference Range Interpretation Comments Magnesium Lvl (test code = Magnesium 2.2 1.8-2.4 Lvl) [facility] [id number] 10:47:00 Test Item Value Reference Range Interpretation Comments Albumin Lvl (test code = Albumin Lvl) 2.3 3.5-5.0 [facility] [id number] 10:47:00 Test Item Value Reference Range Interpretation Comments Creatinine Lvl (test code = Creatinine 0.81 0.50-1.40 Lvl) [facility]2018-12-28 10:47:00 Test Item Value Reference Range Interpretation Comments ALT (test code = ALT) 14 See_Comment [Auto mated message] The system which ge nerated this result transmit garrett reference range : <=65. The reference range was not used to interpr et this result as cassie l/abnormal. [facility]2018-12-28 10:47:00 Test Item Value Reference Range Interpretation Comments AST (test code = AST) 9 See_Comment [Auto mated message] The system which ge nerated this result transmit garrett reference range : <=37. The reference range was not used to interpr et this result as cassie l/abnormal. [place] [id number] 10:47:00 Test Item Value Reference Range Interpretation Comments eGFR (test code = eGFR) 97 [facility]2018-12-28 10:47:00 Test Item Value Reference Range Interpretation Comments Sodium Lvl (test code = Sodium Lvl) 143 135-145 [facility]2018-12-28 10:47:00 Test Item Value Reference Range Interpretation Comments Potassium Lvl (test code = Potassium 3.3 3.5-5.1 Lvl) [facility]2018-12-28 10:47:00 Test Item Value Reference Range Interpretation Comments Chloride Lvl (test code = Chloride Lvl) 107 95-109 [facility]2018-12-28 10:47:00 Test Item Value Reference Range Interpretation Comments Total Protein (test code = Total 6.7 6.4-8.4 Protein) [facility]2018-12-28 10:47:00 Test Item Value Reference Range Interpretation Comments Bili Total (test code = Bili Total) 0.7 0.2-1.3 [facility]2018-12-28 10:47:00 Test Item Value Reference Range Interpretation Comments Calcium Lvl (test code = Calcium Lvl) 8.3 8.5-10.5 [facility]2018-12-28 10:47:00 Test Item Value Reference Range Interpretation Comments CO2 (test code = CO2) 29 24-32 [facility]2018-12-28 10:47:00 Test Item Value Reference Range Interpretation Comments BUN (test code = BUN) 14 7-22 [place] [id number] 10:47:00 Test Item Value Reference Range Interpretation Comments Glucose Lvl (test code = Glucose Lvl) 128 70-99 [facility]2018-12-28 10:47:00 Test Item Value Reference Range Interpretation Comments Alk Phos (test code = Alk Phos) 100 39-136 [facility]2018-12-28 10:47:00 Test Item Value Reference Range Interpretation Comments B/C Ratio (test code = B/C Ratio) 17 1 6-25 [facility]2018-12-28 10:47:00 Test Item Value Reference Range Interpretation Comments Globulin (test code = Globulin) 4.4 2.7-4.2 [facility]2018-12-28 10:47:00 Test Item Value Reference Range Interpretation Comments A/G Ratio (test code = A/G Ratio) 0.5 1 0.7-1.6 [facility]2018-12-28 10:47:00 Test Item Value Reference Range Interpretation Comments AGAP (test code = AGAP) 10.3 10.0-20.0 [id number] 10:47:00 Test Item Value Reference Range Interpretation Comments Microcyte (test code = 1+ *ABN*(03/01/18 Microcyte) 4:47 AM) [facility]neNdzerglXCAEKPELXR8149-40-28 10:47:00 Test Item Value Reference Range Interpretation Comments Lymphocytes # (test code = Lymphocytes 1.4 1.0-5.5 #) [facility]neClxoxyePPKWVYWDCT0966-77-65 10:47:00 Test Item Value Reference Range Interpretation Comments Monocytes # (test code 0.8 See_Comment [Aut omated message] The = Monocytes #) system which generated this result tra nsmitted reference range : <=0.8. The reference r ondina was not used to int erpret this result as normal/abnormal . [facility]neXpzhcrhIFZHVIHSUQ0602-20-08 10:47:00 Test Item Value Reference Range Interpretation Comments Segs (test code = Segs) 78.3 45.0-75.0 [facility]neKckkvtrIOUGFDFQEI5798-14-21 10:47:00 Test Item Value Reference Range Interpretation Comments Basophils (test code = 0.4 See_Comment [Aut omated message] The Basophils) system which ge nerated this result tra nsmitted reference range : <=1.0. The reference r ondina was not used to int erpret this result as normal/abnormal . [facility]neJwrmlqrTTJPMKYGXX3974-59-51 10:47:00 Test Item Value Reference Range Interpretation Comments Neutrophils # (test code = Neutrophils 8.1 1.5-8.1 #) [facility]neQnpvmcqGJUTQQMQPM2218-22-95 10:47:00 Test Item Value Reference Range Interpretation Comments Monocytes (test code = Monocytes) 7.9 2.0-12.0 [facility]neZxuyeeeYZEDFNFTAU9664-85-46 10:47:00 Test Item Value Reference Range Interpretation Comments Lymphocytes (test code = Lymphocytes) 13.4 20.0-40.0 [facility]neQqnxgmzWGYLETXADM0106-91-76 10:47:00 Test Item Value Reference Range Interpretation Comments Hct (test code = Hct) 27.0 42.0-54.0 [facility]nePxorelaTDQUVWYTIW7845-60-48 10:47:00 Test Item Value Reference Range Interpretation Comments MCV (test code = MCV) 78.7 80.0-94.0 [facility]neEgmlakjWGZAQTTNIL1215-98-58 10:47:00 Test Item Value Reference Range Interpretation Comments MCHC (test code = MCHC) 32.7 32.0-36.0 [facility]neVbfdkejLXYOZCUDZK9395-92-28 10:47:00 Test Item Value Reference Range Interpretation Comments MCH (test code = MCH) 25.8 pg 27.0-31.0 [facility]neIrwomytFCJRQWQJHK9992-83-93 10:47:00 Test Item Value Reference Range Interpretation Comments MPV (test code = MPV) 8.2 7.4-10.4 [facility]nePkhefcbQAIVCUJIEQ7385-26-45 10:47:00 Test Item Value Reference Range Interpretation Comments Platelet (test code = Platelet) 475 133-450 [facility]neLrktpwbBENQUAXZAP4721-43-54 10:47:00 Test Item Value Reference Range Interpretation Comments RDW (test code = RDW) 17.9 11.5-14.5 [facility]neVxypymmANGYVVTAZI7302-19-24 10:47:00 Test Item Value Reference Range Interpretation Comments RBC (test code = RBC) 3.42 4.70-6.10 [facility]neWvrafrqWOSQWCVOBQ4563-17-16 10:47:00 Test Item Value Reference Range Interpretation Comments Hgb (test code = Hgb) 8.8 14.0-18.0 [facility]HldetjiOOKSZBEOMP1795-53-11 10:47:00 Test Item Value Reference Range Interpretation Comments WBC (test code = WBC) 10.3 3.7-10.4 [facility]CARDIAC TVHPVVV7840-53-40 10:47:00 Test Item Value Reference Range Interpretation Comments BNP (test code = BNP) 288 [facility]2018-12-28 10:47:00 Test Item Value Reference Range Interpretation Comments Phosphorus (test code = Phosphorus) 3.3 2.5-4.5 [facility]2018-12-28 10:47:00 Test Item Value Reference Range Interpretation Comments Magnesium Lvl (test code = Magnesium 2.2 1.8-2.4 Lvl) [facility]2018-12-28 10:47:00 Test Item Value Reference Range Interpretation Comments Albumin Lvl (test code = Albumin Lvl) 2.3 3.5-5.0 [facility]2018-12-28 10:47:00 Test Item Value Reference Range Interpretation Comments Creatinine Lvl (test code = Creatinine 0.81 0.50-1.40 Lvl) [facility]2018-12-28 10:47:00 Test Item Value Reference Range Interpretation Comments ALT (test code = ALT) 14 See_Comment [Auto mated message] The system which ge nerated this result transmit garrett reference range : <=65. The reference range was not used to interpr et this result as cassie l/abnormal. [facility]2018-12-28 10:47:00 Test Item Value Reference Range Interpretation Comments AST (test code = AST) 9 See_Comment [Auto mated message] The system which ge nerated this result transmit garrett reference range : <=37. The reference range was not used to interpr et this result as cassie l/abnormal. [facility]2018-12-28 10:47:00 Test Item Value Reference Range Interpretation Comments eGFR (test code = eGFR) 97 [facility]2018-12-28 10:47:00 Test Item Value Reference Range Interpretation Comments Sodium Lvl (test code = Sodium Lvl) 143 135-145 [facility]2018-12-28 10:47:00 Test Item Value Reference Range Interpretation Comments Potassium Lvl (test code = Potassium 3.3 3.5-5.1 Lvl) [facility]2018-12-28 10:47:00 Test Item Value Reference Range Interpretation Comments Chloride Lvl (test code = Chloride Lvl) 107 95-109 [facility]2018-12-28 10:47:00 Test Item Value Reference Range Interpretation Comments Total Protein (test code = Total 6.7 6.4-8.4 Protein) [facility]2018-12-28 10:47:00 Test Item Value Reference Range Interpretation Comments Bili Total (test code = Bili Total) 0.7 0.2-1.3 [facility]2018-12-28 10:47:00 Test Item Value Reference Range Interpretation Comments Calcium Lvl (test code = Calcium Lvl) 8.3 8.5-10.5 [facility]2018-12-28 10:47:00 Test Item Value Reference Range Interpretation Comments CO2 (test code = CO2) 29 24-32 [facility]2018-12-28 10:47:00 Test Item Value Reference Range Interpretation Comments BUN (test code = BUN) 14 7-22 [facility]2018-12-28 10:47:00 Test Item Value Reference Range Interpretation Comments Glucose Lvl (test code = Glucose Lvl) 128 70-99 [facility]2018-12-28 10:47:00 Test Item Value Reference Range Interpretation Comments Alk Phos (test code = Alk Phos) 100 39-136 [facility]2018-12-28 10:47:00 Test Item Value Reference Range Interpretation Comments B/C Ratio (test code = B/C Ratio) 17 1 6-25 [facility]2018-12-28 10:47:00 Test Item Value Reference Range Interpretation Comments Globulin (test code = Globulin) 4.4 2.7-4.2 [facility]2018-12-28 10:47:00 Test Item Value Reference Range Interpretation Comments A/G Ratio (test code = A/G Ratio) 0.5 1 0.7-1.6 [facility]2018-12-28 10:47:00 Test Item Value Reference Range Interpretation Comments AGAP (test code = AGAP) 10.3 10.0-20.0 [facility]neIopienvEIZWQZBAXI2188-16-90 10:47:00 Test Item Value Reference Range Interpretation Comments Microcyte (test code = 1+ *ABN*(03/01/18 Microcyte) 4:47 AM) [facility]neDudqcaqVJWZACACYU3605-50-43 10:47:00 Test Item Value Reference Range Interpretation Comments Lymphocytes # (test code = Lymphocytes 1.4 1.0-5.5 #) [facility]neAassgzcYPVNNAQOUV1085-56-99 10:47:00 Test Item Value Reference Range Interpretation Comments Monocytes # (test code 0.8 See_Comment [Aut omated message] The = Monocytes #) system which generated this result tra nsmitted reference range : <=0.8. The reference r ondina was not used to int erpret this result as normal/abnormal . [facility]neAajhfexFLJHACWNLB3738-72-49 10:47:00 Test Item Value Reference Range Interpretation Comments Segs (test code = Segs) 78.3 45.0-75.0 [facility]neNpeciclDAGRDYPVDK7825-10-11 10:47:00 Test Item Value Reference Range Interpretation Comments Basophils (test code = 0.4 See_Comment [Aut omated message] The Basophils) system which ge nerated this result tra nsmitted reference range : <=1.0. The reference r ondina was not used to int erpret this result as normal/abnormal . [facility]neIcpahynSQGLESNETA7725-93-55 10:47:00 Test Item Value Reference Range Interpretation Comments Neutrophils # (test code = Neutrophils 8.1 1.5-8.1 #) [facility]neBkgqjnoSXQHOXSWUK8671-76-48 10:47:00 Test Item Value Reference Range Interpretation Comments Monocytes (test code = Monocytes) 7.9 2.0-12.0 [facility]neBziuramQSDUPUYWIB7110-76-87 10:47:00 Test Item Value Reference Range Interpretation Comments Lymphocytes (test code = Lymphocytes) 13.4 20.0-40.0 [facility]neAlkvoetVSIUXTSUMO7771-15-41 10:47:00 Test Item Value Reference Range Interpretation Comments Hct (test code = Hct) 27.0 42.0-54.0 [facility]neFstarydYDIJOKPPNP4645-26-55 10:47:00 Test Item Value Reference Range Interpretation Comments MCV (test code = MCV) 78.7 80.0-94.0 [facility] TexasCtfsmrmSFEOBILLYH8908-36-92 10:47:00 Test Item Value Reference Range Interpretation Comments MCHC (test code = MCHC) 32.7 32.0-36.0 [facility] TexasZrldbdmHRLJBYZDDS7329-01-72 10:47:00 Test Item Value Reference Range Interpretation Comments MCH (test code = MCH) 25.8 pg 27.0-31.0 [facility]IzgjdfmABGPFQPFIR5170-25-58 10:47:00 Test Item Value Reference Range Interpretation Comments MPV (test code = MPV) 8.2 7.4-10.4 [facility] DallasMadzcliWBXLUMIIJQ9891-24-35 10:47:00 Test Item Value Reference Range Interpretation Comments Platelet (test code = Platelet) 475 133-450 [facility]ImddvpuZRCIPBMIWA1368-11-19 10:47:00 Test Item Value Reference Range Interpretation Comments RDW (test code = RDW) 17.9 11.5-14.5 [facility] HospitalKqgcyvjQMLXQEMQVV5468-42-83 10:47:00 Test Item Value Reference Range Interpretation Comments RBC (test code = RBC) 3.42 4.70-6.10 [facility] TexasFfpmeakGPGXLNUOUZ3420-24-09 10:47:00 Test Item Value Reference Range Interpretation Comments Hgb (test code = Hgb) 8.8 14.0-18.0 [facility] TexasZanzxxbYTIGMPDBPM9246-78-59 10:47:00 Test Item Value Reference Range Interpretation Comments WBC (test code = WBC) 10.3 3.7-10.4 [facility] TexasCARDIAC ZTABWSR9619-29-08 10:47:00 Test Item Value Reference Range Interpretation Comments BNP (test code = BNP) 288 [facility]annCHEM DPYKM8831-71-21 10:47:00 Test Item Value Reference Range Interpretation Comments Phosphorus (test code = Phosphorus) 3.3 2.5-4.5 [facility] DallasannCHEM VCNFQ0742-47-98 10:47:00 Test Item Value Reference Range Interpretation Comments Magnesium Lvl (test code = Magnesium 2.2 1.8-2.4 Lvl) [facility] DallasannCHEM [id number] 10:47:00 Test Item Value Reference Range Interpretation Comments Albumin Lvl (test code = Albumin Lvl) 2.3 3.5-5.0 [facility] DallasannCHEM [id number] 10:47:00 Test Item Value Reference Range Interpretation Comments Creatinine Lvl (test code = Creatinine 0.81 0.50-1.40 Lvl) [facility]2018-12-28 10:47:00 Test Item Value Reference Range Interpretation Comments ALT (test code = ALT) 14 See_Comment [Auto mated message] The system which ge nerated this result transmit garrett reference range : <=65. The reference range was not used to interpr et this result as cassie l/abnormal. [facility]2018-12-28 10:47:00 Test Item Value Reference Range Interpretation Comments AST (test code = AST) 9 See_Comment [Auto mated message] The system which ge nerated this result transmit garrett reference range : <=37. The reference range was not used to interpr et this result as cassie l/abnormal. [facility]2018-12-28 10:47:00 Test Item Value Reference Range Interpretation Comments eGFR (test code = eGFR) 97 [facility]2018-12-28 10:47:00 Test Item Value Reference Range Interpretation Comments Sodium Lvl (test code = Sodium Lvl) 143 135-145 [facility]2018-12-28 10:47:00 Test Item Value Reference Range Interpretation Comments Potassium Lvl (test code = Potassium 3.3 3.5-5.1 Lvl) [facility]2018-12-28 10:47:00 Test Item Value Reference Range Interpretation Comments Chloride Lvl (test code = Chloride Lvl) 107 95-109 [facility]2018-12-28 10:47:00 Test Item Value Reference Range Interpretation Comments Total Protein (test code = Total 6.7 6.4-8.4 Protein) [facility]2018-12-28 10:47:00 Test Item Value Reference Range Interpretation Comments Bili Total (test code = Bili Total) 0.7 0.2-1.3 [facility]2018-12-28 10:47:00 Test Item Value Reference Range Interpretation Comments Calcium Lvl (test code = Calcium Lvl) 8.3 8.5-10.5 [facility]2018-12-28 10:47:00 Test Item Value Reference Range Interpretation Comments CO2 (test code = CO2) 29 24-32 [facility]2018-12-28 10:47:00 Test Item Value Reference Range Interpretation Comments BUN (test code = BUN) 14 7-22 [facility]2018-12-28 10:47:00 Test Item Value Reference Range Interpretation Comments Glucose Lvl (test code = Glucose Lvl) 128 70-99 [facility]2018-12-28 10:47:00 Test Item Value Reference Range Interpretation Comments Alk Phos (test code = Alk Phos) 100 39-136 [facility]2018-12-28 10:47:00 Test Item Value Reference Range Interpretation Comments B/C Ratio (test code = B/C Ratio) 17 1 6-25 [facility]2018-12-28 10:47:00 Test Item Value Reference Range Interpretation Comments Globulin (test code = Globulin) 4.4 2.7-4.2 [facility]2018-12-28 10:47:00 Test Item Value Reference Range Interpretation Comments A/G Ratio (test code = A/G Ratio) 0.5 1 0.7-1.6 [facility]2018-12-28 10:47:00 Test Item Value Reference Range Interpretation Comments AGAP (test code = AGAP) 10.3 10.0-20.0 [facility]neQljdqtrRRGTUNBJRL8125-32-79 10:47:00 Test Item Value Reference Range Interpretation Comments Microcyte (test code = 1+ *ABN*(03/01/18 Microcyte) 4:47 AM) [facility]neXnwozlxHHQMVKNRVD6950-00-62 10:47:00 Test Item Value Reference Range Interpretation Comments Lymphocytes # (test code = Lymphocytes 1.4 1.0-5.5 #) [facility]neBmharbtSWGIRQTIXW4772-03-58 10:47:00 Test Item Value Reference Range Interpretation Comments Monocytes # (test code 0.8 See_Comment [Aut omated message] The = Monocytes #) system which generated this result tra nsmitted reference range : <=0.8. The reference r ondina was not used to int erpret this result as normal/abnormal . [facility]neSmbrdpbBINBSCCTOW2790-15-06 10:47:00 Test Item Value Reference Range Interpretation Comments Segs (test code = Segs) 78.3 45.0-75.0 [facility]neRkvwocbPOAXGYHUGH4642-38-72 10:47:00 Test Item Value Reference Range Interpretation Comments Basophils (test code = 0.4 See_Comment [Aut omated message] The Basophils) system which ge nerated this result tra nsmitted reference range : <=1.0. The reference r ondina was not used to int erpret this result as normal/abnormal . [facility]neQefgvgeKEQNIWJWXX5950-75-71 10:47:00 Test Item Value Reference Range Interpretation Comments Neutrophils # (test code = Neutrophils 8.1 1.5-8.1 #) [facility]neOhvphklXESXWEAOFN4300-84-16 10:47:00 Test Item Value Reference Range Interpretation Comments Monocytes (test code = Monocytes) 7.9 2.0-12.0 [facility]neVmyfgdrPCNWESTIXI8212-44-45 10:47:00 Test Item Value Reference Range Interpretation Comments Lymphocytes (test code = Lymphocytes) 13.4 20.0-40.0 [facility]neFhqmioeOCRDMWBRPO6737-15-58 10:47:00 Test Item Value Reference Range Interpretation Comments Hct (test code = Hct) 27.0 42.0-54.0 [facility]neHzfdcofOTMOBVFAUJ2410-36-86 10:47:00 Test Item Value Reference Range Interpretation Comments MCV (test code = MCV) 78.7 80.0-94.0 [facility]neRqdbwczNMUFJWOBQI2805-08-26 10:47:00 Test Item Value Reference Range Interpretation Comments MCHC (test code = MCHC) 32.7 32.0-36.0 [facility]nePzvlkslSTWGXGLTIG2021-93-63 10:47:00 Test Item Value Reference Range Interpretation Comments MCH (test code = MCH) 25.8 pg 27.0-31.0 [facility]neUmrydckPGIITPLGGO1599-11-24 10:47:00 Test Item Value Reference Range Interpretation Comments MPV (test code = MPV) 8.2 7.4-10.4 [facility]neCkzqvbtIHDBQJLFOQ2411-16-85 10:47:00 Test Item Value Reference Range Interpretation Comments Platelet (test code = Platelet) 475 535-450 [facility]neXgmehgwVRRXTZGHEZ1174-93-83 10:47:00 Test Item Value Reference Range Interpretation Comments RDW (test code = RDW) 17.9 11.5-14.5 [facility]nePkebmodHZLIWSBESZ5771-18-84 10:47:00 Test Item Value Reference Range Interpretation Comments RBC (test code = RBC) 3.42 4.70-6.10 [facility] TexasVikrdupNOZEADXQKI7731-12-13 10:47:00 Test Item Value Reference Range Interpretation Comments Hgb (test code = Hgb) 8.8 14.0-18.0 [facility] HospitalXnfikwcETQASNUBFA3529-62-24 10:47:00 Test Item Value Reference Range Interpretation Comments WBC (test code = WBC) 10.3 3.7-10.4 [facility] WZDGJSF9156-36-59 10:47:00 Test Item Value Reference Range Interpretation Comments BNP (test code = BNP) 288 [facility]2018-12-28 10:47:00 Test Item Value Reference Range Interpretation Comments Phosphorus (test code = Phosphorus) 3.3 2.5-4.5 [facility]2018-12-28 10:47:00 Test Item Value Reference Range Interpretation Comments Magnesium Lvl (test code = Magnesium 2.2 1.8-2.4 Lvl) [facility]2018-12-28 10:47:00 Test Item Value Reference Range Interpretation Comments Albumin Lvl (test code = Albumin Lvl) 2.3 3.5-5.0 [facility]2018-12-28 10:47:00 Test Item Value Reference Range Interpretation Comments Creatinine Lvl (test code = Creatinine 0.81 0.50-1.40 Lvl) [facility]2018-12-28 10:47:00 Test Item Value Reference Range Interpretation Comments ALT (test code = ALT) 14 <=65 [facility]2018-12-28 10:47:00 Test Item Value Reference Range Interpretation Comments AST (test code = AST) 9 <=37 [facility]2018-12-28 10:47:00 Test Item Value Reference Range Interpretation Comments eGFR (test code = eGFR) 97 [facility]2018-12-28 10:47:00 Test Item Value Reference Range Interpretation Comments Sodium Lvl (test code = Sodium Lvl) 143 135-145 [facility]2018-12-28 10:47:00 Test Item Value Reference Range Interpretation Comments Potassium Lvl (test code = Potassium 3.3 3.5-5.1 Lvl) [facility]2018-12-28 10:47:00 Test Item Value Reference Range Interpretation Comments Chloride Lvl (test code = Chloride Lvl) 107 95-109 [facility]2018-12-28 10:47:00 Test Item Value Reference Range Interpretation Comments Total Protein (test code = Total 6.7 6.4-8.4 Protein) [facility]2018-12-28 10:47:00 Test Item Value Reference Range Interpretation Comments Bili Total (test code = Bili Total) 0.7 0.2-1.3 [facility]2018-12-28 10:47:00 Test Item Value Reference Range Interpretation Comments Calcium Lvl (test code = Calcium Lvl) 8.3 8.5-10.5 [facility]2018-12-28 10:47:00 Test Item Value Reference Range Interpretation Comments CO2 (test code = CO2) 29 24-32 [facility]2018-12-28 10:47:00 Test Item Value Reference Range Interpretation Comments BUN (test code = BUN) 14 7-22 [facility]2018-12-28 10:47:00 Test Item Value Reference Range Interpretation Comments Glucose Lvl (test code = Glucose Lvl) 128 70-99 [facility]2018-12-28 10:47:00 Test Item Value Reference Range Interpretation Comments Alk Phos (test code = Alk Phos) 100 39-136 [facility]2018-12-28 10:47:00 Test Item Value Reference Range Interpretation Comments B/C Ratio (test code = B/C Ratio) 17 1 6-25 [facility]2018-12-28 10:47:00 Test Item Value Reference Range Interpretation Comments Globulin (test code = Globulin) 4.4 2.7-4.2 [facility]2018-12-28 10:47:00 Test Item Value Reference Range Interpretation Comments A/G Ratio (test code = A/G Ratio) 0.5 1 0.7-1.6 [facility]2018-12-28 10:47:00 Test Item Value Reference Range Interpretation Comments AGAP (test code = AGAP) 10.3 10.0-20.0 [facility] HospitalRivjibfKQSMDXYFVW8871-93-22 10:47:00 Test Item Value Reference Range Interpretation Comments Microcyte (test code = 1+ *ABN*(03/01/18 Microcyte) 4:47 AM) [facility]neIdnyaimWUSGAADXRR5878-93-97 10:47:00 Test Item Value Reference Range Interpretation Comments Lymphocytes # (test code = Lymphocytes 1.4 1.0-5.5 #) [facility]neQhkarumSNGECRSABW7451-00-54 10:47:00 Test Item Value Reference Range Interpretation Comments Monocytes # (test code = Monocytes #) 0.8 <=0.8 [facility]neTrsmyprUGRGBWRGHM5739-82-13 10:47:00 Test Item Value Reference Range Interpretation Comments Segs (test code = Segs) 78.3 45.0-75.0 [facility]burneCuldulaKFEGUEQHGL7069-72-18 10:47:00 Test Item Value Reference Range Interpretation Comments Basophils (test code = Basophils) 0.4 <=1.0 [facility]neVpuibcpGYZWZMHBCL2102-40-37 10:47:00 Test Item Value Reference Range Interpretation Comments Neutrophils # (test code = Neutrophils 8.1 1.5-8.1 #) [facility]neYqujqudULIASCGLDH5859-54-21 10:47:00 Test Item Value Reference Range Interpretation Comments Monocytes (test code = Monocytes) 7.9 2.0-12.0 [facility]neSpbvmotMZLZKEYDEE5648-93-62 10:47:00 Test Item Value Reference Range Interpretation Comments Lymphocytes (test code = Lymphocytes) 13.4 20.0-40.0 [facility] [id number] 10:47:00 Test Item Value Reference Range Interpretation Comments Hct (test code = Hct) 27.0 42.0-54.0 [facility] [place]neVldvnnrJSGKTWXPTD9556-73-40 10:47:00 Test Item Value Reference Range Interpretation Comments MCV (test code = MCV) 78.7 80.0-94.0 [facility] [place]neZoprdykKNWDJDIMKB0760-07-69 10:47:00 Test Item Value Reference Range Interpretation Comments MCHC (test code = MCHC) 32.7 32.0-36.0 [facility] [place]neJnyouvnEXXEGJLBGA2788-68-02 10:47:00 Test Item Value Reference Range Interpretation Comments MCH (test code = MCH) 25.8 pg 27.0-31.0 [facility] [place]nePawqlzuYKLDNEVXFT2889-56-51 10:47:00 Test Item Value Reference Range Interpretation Comments MPV (test code = MPV) 8.2 7.4-10.4 [facility]HzmhpisJXVYBSETLZ5376-93-67 10:47:00 Test Item Value Reference Range Interpretation Comments Platelet (test code = Platelet) 475 133-450 [facility] HospitalMxtdvfdVYCBQJOJYI3202-01-38 10:47:00 Test Item Value Reference Range Interpretation Comments RDW (test code = RDW) 17.9 11.5-14.5 [facility] Cle[place]neLtdidpkLDIKGLCDGC5707-62-80 10:47:00 Test Item Value Reference Range Interpretation Comments RBC (test code = RBC) 3.42 4.70-6.10 [facility]XneyvgoEXZORKQTGJ0213-69-14 10:47:00 Test Item Value Reference Range Interpretation Comments Hgb (test code = Hgb) 8.8 14.0-18.0 [facility] HospitalSxdispbNWEDFPQPHK1323-23-92 10:47:00 Test Item Value Reference Range Interpretation Comments WBC (test code = WBC) 10.3 3.7-10.4 [facility] [id number] 10:47:00 Test Item Value Reference Range Interpretation Comments BNP (test code = BNP) 288 [facility] [id number] 10:47:00 Test Item Value Reference Range Interpretation Comments Phosphorus (test code = Phosphorus) 3.3 2.5-4.5 [facility] [id number] 10:47:00 Test Item Value Reference Range Interpretation Comments Magnesium Lvl (test code = Magnesium 2.2 1.8-2.4 Lvl) [facility]2018-12-28 10:47:00 Test Item Value Reference Range Interpretation Comments Albumin Lvl (test code = Albumin Lvl) 2.3 3.5-5.0 [facility]2018-12-28 10:47:00 Test Item Value Reference Range Interpretation Comments Creatinine Lvl (test code = Creatinine 0.81 0.50-1.40 Lvl) [facility]2018-12-28 10:47:00 Test Item Value Reference Range Interpretation Comments ALT (test code = ALT) 14 See_Comment [Auto mated message] The system which ge nerated this result transmit garrett reference range : <=65. The reference range was not used to interpr et this result as cassie l/abnormal. [facility]2018-12-28 10:47:00 Test Item Value Reference Range Interpretation Comments AST (test code = AST) 9 See_Comment [Auto mated message] The system which ge nerated this result transmit garrett reference range : <=37. The reference range was not used to interpr et this result as cassie l/abnormal. [facility]2018-12-28 10:47:00 Test Item Value Reference Range Interpretation Comments eGFR (test code = eGFR) 97 [facility]2018-12-28 10:47:00 Test Item Value Reference Range Interpretation Comments Sodium Lvl (test code = Sodium Lvl) 143 135-145 [facility]2018-12-28 10:47:00 Test Item Value Reference Range Interpretation Comments Potassium Lvl (test code = Potassium 3.3 3.5-5.1 Lvl) [facility]2018-12-28 10:47:00 Test Item Value Reference Range Interpretation Comments Chloride Lvl (test code = Chloride Lvl) 107 95-109 [facility]2018-12-28 10:47:00 Test Item Value Reference Range Interpretation Comments Total Protein (test code = Total 6.7 6.4-8.4 Protein) [facility]2018-12-28 10:47:00 Test Item Value Reference Range Interpretation Comments Bili Total (test code = Bili Total) 0.7 0.2-1.3 [facility]2018-12-28 10:47:00 Test Item Value Reference Range Interpretation Comments Calcium Lvl (test code = Calcium Lvl) 8.3 8.5-10.5 [facility]2018-12-28 10:47:00 Test Item Value Reference Range Interpretation Comments CO2 (test code = CO2) 29 24-32 [facility]2018-12-28 10:47:00 Test Item Value Reference Range Interpretation Comments BUN (test code = BUN) 14 7-22 [facility]2018-12-28 10:47:00 Test Item Value Reference Range Interpretation Comments Glucose Lvl (test code = Glucose Lvl) 128 70-99 [facility]2018-12-28 10:47:00 Test Item Value Reference Range Interpretation Comments Alk Phos (test code = Alk Phos) 100 39-136 [facility]2018-12-28 10:47:00 Test Item Value Reference Range Interpretation Comments B/C Ratio (test code = B/C Ratio) 17 1 6-25 [facility]2018-12-28 10:47:00 Test Item Value Reference Range Interpretation Comments Globulin (test code = Globulin) 4.4 2.7-4.2 [facility]2018-12-28 10:47:00 Test Item Value Reference Range Interpretation Comments A/G Ratio (test code = A/G Ratio) 0.5 1 0.7-1.6 [facility]2018-12-28 10:47:00 Test Item Value Reference Range Interpretation Comments AGAP (test code = AGAP) 10.3 10.0-20.0 [facility] [id number] 10:47:00 Test Item Value Reference Range Interpretation Comments Microcyte (test code = 1+ *ABN*(03/01/18 Microcyte) 4:47 AM) [facility] [place][id number] 10:47:00 Test Item Value Reference Range Interpretation Comments Lymphocytes # (test code = Lymphocytes 1.4 1.0-5.5 #) [facility] Cle[place]neGxgmisuBSNYDJSSCQ0926-69-24 10:47:00 Test Item Value Reference Range Interpretation Comments Monocytes # (test code 0.8 See_Comment [Aut omated message] The = Monocytes #) system which generated this result tra nsmitted reference range : <=0.8. The reference r ondina was not used to int erpret this result as normal/abnormal . [facility] [place]neOxdczweSSHNKLVSTS2876-98-80 10:47:00 Test Item Value Reference Range Interpretation Comments Segs (test code = Segs) 78.3 45.0-75.0 [facility] [place]neOuxzafeIZZWVAHHZP0118-05-72 10:47:00 Test Item Value Reference Range Interpretation Comments Basophils (test code = 0.4 See_Comment [Aut omated message] The Basophils) system which ge nerated this result tra nsmitted reference range : <=1.0. The reference r ondina was not used to int erpret this result as normal/abnormal . [facility] Cle[place]neJygmdttRLEYMLPZZO7925-44-55 10:47:00 Test Item Value Reference Range Interpretation Comments Neutrophils # (test code = Neutrophils 8.1 1.5-8.1 #) [facility] [place]neVeolygbRVRKNBCVJG3783-39-00 10:47:00 Test Item Value Reference Range Interpretation Comments Monocytes (test code = Monocytes) 7.9 2.0-12.0 [facility] HospitalDjlqgwuPDXRFPDTRM0080-22-48 10:47:00 Test Item Value Reference Range Interpretation Comments Lymphocytes (test code = Lymphocytes) 13.4 20.0-40.0 [facility] Cle[place]neCoycuehXLTHUBAFQV6467-04-28 10:47:00 Test Item Value Reference Range Interpretation Comments Hct (test code = Hct) 27.0 42.0-54.0 [facility] Cle[place]neXahdvkgYIQJSQPHRC2847-46-55 10:47:00 Test Item Value Reference Range Interpretation Comments MCV (test code = MCV) 78.7 80.0-94.0 [facility] Cle[place]neBpohsusZLHVKMIXKR2250-78-17 10:47:00 Test Item Value Reference Range Interpretation Comments MCHC (test code = MCHC) 32.7 32.0-36.0 [facility] [place]neTpdszcgJWCNNAYPRK3069-52-13 10:47:00 Test Item Value Reference Range Interpretation Comments MCH (test code = MCH) 25.8 pg 27.0-31.0 [facility] [place]neMzonifmLBEQNPYXXL5864-81-48 10:47:00 Test Item Value Reference Range Interpretation Comments MPV (test code = MPV) 8.2 7.4-10.4 [facility] Cle[place]neLrgrynbJNWOGNPRJB7983-24-29 10:47:00 Test Item Value Reference Range Interpretation Comments Platelet (test code = Platelet) 475 608-450 [facility] [place]neSitrpxqXHTZXACHJK0046-19-22 10:47:00 Test Item Value Reference Range Interpretation Comments RDW (test code = RDW) 17.9 11.5-14.5 [facility] C[id number] 10:47:00 Test Item Value Reference Range Interpretation Comments RBC (test code = RBC) 3.42 4.70-6.10 [facility] [place]nePgtkhvgTJLBFYNCXJ7462-62-59 10:47:00 Test Item Value Reference Range Interpretation Comments Hgb (test code = Hgb) 8.8 14.0-18.0 [facility] Cle[place]neSxseclyYHONXHBHZP6009-93-81 10:47:00 Test Item Value Reference Range Interpretation Comments WBC (test code = WBC) 10.3 3.7-10.4 [facility] [id number] 10:47:00 Test Item Value Reference Range Interpretation Comments BNP (test code = BNP) 288 [facility]2018-12-28 10:47:00 Test Item Value Reference Range Interpretation Comments Phosphorus (test code = Phosphorus) 3.3 2.5-4.5 [facility]2018-12-28 10:47:00 Test Item Value Reference Range Interpretation Comments Magnesium Lvl (test code = Magnesium 2.2 1.8-2.4 Lvl) [facility]2018-12-28 10:47:00 Test Item Value Reference Range Interpretation Comments Albumin Lvl (test code = Albumin Lvl) 2.3 3.5-5.0 [facility]2018-12-28 10:47:00 Test Item Value Reference Range Interpretation Comments Creatinine Lvl (test code = Creatinine 0.81 0.50-1.40 Lvl) [facility]2018-12-28 10:47:00 Test Item Value Reference Range Interpretation Comments ALT (test code = ALT) 14 <=65 [facility]2018-12-28 10:47:00 Test Item Value Reference Range Interpretation Comments AST (test code = AST) 9 <=37 [facility]2018-12-28 10:47:00 Test Item Value Reference Range Interpretation Comments eGFR (test code = eGFR) 97 [facility]2018-12-28 10:47:00 Test Item Value Reference Range Interpretation Comments Sodium Lvl (test code = Sodium Lvl) 143 135-145 [facility]2018-12-28 10:47:00 Test Item Value Reference Range Interpretation Comments Potassium Lvl (test code = Potassium 3.3 3.5-5.1 Lvl) [facility]2018-12-28 10:47:00 Test Item Value Reference Range Interpretation Comments Chloride Lvl (test code = Chloride Lvl) 107 95-109 [facility]2018-12-28 10:47:00 Test Item Value Reference Range Interpretation Comments Total Protein (test code = Total 6.7 6.4-8.4 Protein) [facility]2018-12-28 10:47:00 Test Item Value Reference Range Interpretation Comments Bili Total (test code = Bili Total) 0.7 0.2-1.3 [facility]2018-12-28 10:47:00 Test Item Value Reference Range Interpretation Comments Calcium Lvl (test code = Calcium Lvl) 8.3 8.5-10.5 [facility]2018-12-28 10:47:00 Test Item Value Reference Range Interpretation Comments CO2 (test code = CO2) 29 24-32 [facility]2018-12-28 10:47:00 Test Item Value Reference Range Interpretation Comments BUN (test code = BUN) 14 7-22 [facility]2018-12-28 10:47:00 Test Item Value Reference Range Interpretation Comments Glucose Lvl (test code = Glucose Lvl) 128 70-99 [facility]2018-12-28 10:47:00 Test Item Value Reference Range Interpretation Comments Alk Phos (test code = Alk Phos) 100 39-136 [facility]2018-12-28 10:47:00 Test Item Value Reference Range Interpretation Comments B/C Ratio (test code = B/C Ratio) 17 1 6-25 [facility]2018-12-28 10:47:00 Test Item Value Reference Range Interpretation Comments Globulin (test code = Globulin) 4.4 2.7-4.2 [facility]2018-12-28 10:47:00 Test Item Value Reference Range Interpretation Comments A/G Ratio (test code = A/G Ratio) 0.5 1 0.7-1.6 [facility]2018-12-28 10:47:00 Test Item Value Reference Range Interpretation Comments AGAP (test code = AGAP) 10.3 10.0-20.0 [facility] Cle[place][id number] 10:47:00 Test Item Value Reference Range Interpretation Comments Microcyte (test code = 1+ *ABN*(03/01/18 Microcyte) 4:47 AM) [facility] Clebur[id number] 10:47:00 Test Item Value Reference Range Interpretation Comments Lymphocytes # (test code = Lymphocytes 1.4 1.0-5.5 #) [facility] Cle[place]neRegmdfdTHRWNVOMLE6254-44-98 10:47:00 Test Item Value Reference Range Interpretation Comments Monocytes # (test code = Monocytes #) 0.8 <=0.8 [facility] CleburneHkxqzcdMHUILBBMLN5921-40-65 10:47:00 Test Item Value Reference Range Interpretation Comments Segs (test code = Segs) 78.3 45.0-75.0 [facility] Cle[place]neNaramczBMAGWFHBYM5902-36-28 10:47:00 Test Item Value Reference Range Interpretation Comments Basophils (test code = Basophils) 0.4 <=1.0 [facility] Cle[place]neScinbdfTQVCVIAUWE9907-78-03 10:47:00 Test Item Value Reference Range Interpretation Comments Neutrophils # (test code = Neutrophils 8.1 1.5-8.1 #) [facility] CleburneDgcbpikJTIPQEEJSJ2624-43-99 10:47:00 Test Item Value Reference Range Interpretation Comments Monocytes (test code = Monocytes) 7.9 2.0-12.0 [facility] Cle[place]neMdurbeeSLXEDJGOAQ5735-69-53 10:47:00 Test Item Value Reference Range Interpretation Comments Lymphocytes (test code = Lymphocytes) 13.4 20.0-40.0 [facility] Cle[place]neXjubtdgADSLSTQDHE7236-67-72 10:47:00 Test Item Value Reference Range Interpretation Comments Hct (test code = Hct) 27.0 42.0-54.0 [facility] Cle[place]neIwlwnfgCTVCCLMRKQ0132-54-54 10:47:00 Test Item Value Reference Range Interpretation Comments MCV (test code = MCV) 78.7 80.0-94.0 [facility] Cle[place]neKuyicnzOMSXCOVFDE0754-40-86 10:47:00 Test Item Value Reference Range Interpretation Comments MCHC (test code = MCHC) 32.7 32.0-36.0 [facility] Cle[place]neWimuvlkOTJBKZXTMV1488-79-65 10:47:00 Test Item Value Reference Range Interpretation Comments MCH (test code = MCH) 25.8 pg 27.0-31.0 [facility] [place]neMohjnomQHFDTYMBED7187-82-19 10:47:00 Test Item Value Reference Range Interpretation Comments MPV (test code = MPV) 8.2 7.4-10.4 [facility] [place]neHviyjbrXDZAKLCGQM2793-29-24 10:47:00 Test Item Value Reference Range Interpretation Comments Platelet (test code = Platelet) 475 133-450 [facility] Cle[place]neUfwleicHDAPBTSPRV4210-77-13 10:47:00 Test Item Value Reference Range Interpretation Comments RDW (test code = RDW) 17.9 11.5-14.5 [facility] CleburneAlgubxkJALEQZIQVL2382-64-24 10:47:00 Test Item Value Reference Range Interpretation Comments RBC (test code = RBC) 3.42 4.70-6.10 [facility] Cle[place]neBhlgghoABTVIPFSLC2368-46-13 10:47:00 Test Item Value Reference Range Interpretation Comments Hgb (test code = Hgb) 8.8 14.0-18.0 [facility] TexasZyssuaoWMYWSIGWZL0999-02-52 10:47:00 Test Item Value Reference Range Interpretation Comments WBC (test code = WBC) 10.3 3.7-10.4 [facility] [id number] 16:12:00 Test Item Value Reference Range Interpretation Comments Troponin-I (test code no gt See_Comment [Auto mated message] The = Troponin-I) system which g enerated this result transmit garrett reference range : <=0.40. The reference r ondina was not used to interpr et this result as cassie l/abnormal. [facility]2018-12-27 16:12:00 Test Item Value Reference Range Interpretation Comments Magnesium Lvl (test code = Magnesium 2.1 1.8-2.4 Lvl) [facility]2018-12-27 16:12:00 Test Item Value Reference Range Interpretation Comments Alk Phos (test code = Alk Phos) 132 39-136 [facility]2018-12-27 16:12:00 Test Item Value Reference Range Interpretation Comments Potassium Lvl (test code = Potassium 3.8 3.5-5.1 Lvl) [facility]2018-12-27 16:12:00 Test Item Value Reference Range Interpretation Comments Chloride Lvl (test code = Chloride Lvl) 108 95-109 [facility]2018-12-27 16:12:00 Test Item Value Reference Range Interpretation Comments Sodium Lvl (test code = Sodium Lvl) 141 135-145 [facility]2018-12-27 16:12:00 Test Item Value Reference Range Interpretation Comments eGFR (test code = eGFR) 96 [facility]2018-12-27 16:12:00 Test Item Value Reference Range Interpretation Comments B/C Ratio (test code = B/C Ratio) 7 1 6-25 [facility]2018-12-27 16:12:00 Test Item Value Reference Range Interpretation Comments AST (test code = AST) 15 See_Comment [Auto mated message] The system which ge nerated this result transmit garrett reference range : <=37. The reference range was not used to interpr et this result as cassie l/abnormal. [facility]2018-12-27 16:12:00 Test Item Value Reference Range Interpretation Comments Creatinine Lvl (test code = Creatinine 0.83 0.50-1.40 Lvl) [facility]2018-12-27 16:12:00 Test Item Value Reference Range Interpretation Comments ALT (test code = ALT) 20 See_Comment [Auto mated message] The system which ge nerated this result transmit garrett reference range : <=65. The reference range was not used to interpr et this result as cassie l/abnormal. [facility]2018-12-27 16:12:00 Test Item Value Reference Range Interpretation Comments AGAP (test code = AGAP) 13.8 10.0-20.0 [facility]2018-12-27 16:12:00 Test Item Value Reference Range Interpretation Comments Albumin Lvl (test code = Albumin Lvl) 2.5 3.5-5.0 [facility]2018-12-27 16:12:00 Test Item Value Reference Range Interpretation Comments Glucose Lvl (test code = Glucose Lvl) 153 70-99 [facility]2018-12-27 16:12:00 Test Item Value Reference Range Interpretation Comments BUN (test code = BUN) 6 7-22 [facility]2018-12-27 16:12:00 Test Item Value Reference Range Interpretation Comments CO2 (test code = CO2) 23 24-32 [facility]2018-12-27 16:12:00 Test Item Value Reference Range Interpretation Comments Calcium Lvl (test code = Calcium Lvl) 8.8 8.5-10.5 [facility]2018-12-27 16:12:00 Test Item Value Reference Range Interpretation Comments Bili Total (test code = Bili Total) 0.2 0.2-1.3 [facility]2018-12-27 16:12:00 Test Item Value Reference Range Interpretation Comments Total Protein (test code = Total 7.5 6.4-8.4 Protein) [facility]2018-12-27 16:12:00 Test Item Value Reference Range Interpretation Comments Globulin (test code = Globulin) 5.0 2.7-4.2 [facility]2018-12-27 16:12:00 Test Item Value Reference Range Interpretation Comments A/G Ratio (test code = A/G Ratio) 0.5 1 0.7-1.6 [facility]2018-12-27 16:12:00 Test Item Value Reference Range Interpretation Comments Phosphorus (test code = Phosphorus) 2.9 2.5-4.5 [facility] [id number] 16:12:00 Test Item Value Reference Range Interpretation Comments Troponin-I (test code no gt See_Comment [Auto mated message] The = Troponin-I) system which g enerated this result transmit garrett reference range : <=0.40. The reference r ondina was not used to interpr et this result as cassie l/abnormal. [facility]2018-12-27 16:12:00 Test Item Value Reference Range Interpretation Comments Magnesium Lvl (test code = Magnesium 2.1 1.8-2.4 Lvl) [facility]2018-12-27 16:12:00 Test Item Value Reference Range Interpretation Comments Alk Phos (test code = Alk Phos) 132 39-136 [facility]2018-12-27 16:12:00 Test Item Value Reference Range Interpretation Comments Potassium Lvl (test code = Potassium 3.8 3.5-5.1 Lvl) [facility]2018-12-27 16:12:00 Test Item Value Reference Range Interpretation Comments Chloride Lvl (test code = Chloride Lvl) 108 95-109 [facility]2018-12-27 16:12:00 Test Item Value Reference Range Interpretation Comments Sodium Lvl (test code = Sodium Lvl) 141 135-145 [facility]2018-12-27 16:12:00 Test Item Value Reference Range Interpretation Comments eGFR (test code = eGFR) 96 [facility]2018-12-27 16:12:00 Test Item Value Reference Range Interpretation Comments B/C Ratio (test code = B/C Ratio) 7 1 6-25 [facility]2018-12-27 16:12:00 Test Item Value Reference Range Interpretation Comments AST (test code = AST) 15 See_Comment [Auto mated message] The system which ge nerated this result transmit garrett reference range : <=37. The reference range was not used to interpr et this result as cassie l/abnormal. [facility]2018-12-27 16:12:00 Test Item Value Reference Range Interpretation Comments Creatinine Lvl (test code = Creatinine 0.83 0.50-1.40 Lvl) [facility]2018-12-27 16:12:00 Test Item Value Reference Range Interpretation Comments ALT (test code = ALT) 20 See_Comment [Auto mated message] The system which ge nerated this result transmit garrett reference range : <=65. The reference range was not used to interpr et this result as cassie l/abnormal. [facility]2018-12-27 16:12:00 Test Item Value Reference Range Interpretation Comments AGAP (test code = AGAP) 13.8 10.0-20.0 [facility]2018-12-27 16:12:00 Test Item Value Reference Range Interpretation Comments Albumin Lvl (test code = Albumin Lvl) 2.5 3.5-5.0 [facility]2018-12-27 16:12:00 Test Item Value Reference Range Interpretation Comments Glucose Lvl (test code = Glucose Lvl) 153 70-99 [facility]2018-12-27 16:12:00 Test Item Value Reference Range Interpretation Comments BUN (test code = BUN) 6 7-22 [facility]2018-12-27 16:12:00 Test Item Value Reference Range Interpretation Comments CO2 (test code = CO2) 23 24-32 [facility]2018-12-27 16:12:00 Test Item Value Reference Range Interpretation Comments Calcium Lvl (test code = Calcium Lvl) 8.8 8.5-10.5 [facility]2018-12-27 16:12:00 Test Item Value Reference Range Interpretation Comments Bili Total (test code = Bili Total) 0.2 0.2-1.3 [facility]2018-12-27 16:12:00 Test Item Value Reference Range Interpretation Comments Total Protein (test code = Total 7.5 6.4-8.4 Protein) [facility]2018-12-27 16:12:00 Test Item Value Reference Range Interpretation Comments Globulin (test code = Globulin) 5.0 2.7-4.2 [place] [id number] 16:12:00 Test Item Value Reference Range Interpretation Comments A/G Ratio (test code = A/G Ratio) 0.5 1 0.7-1.6 [facility]2018-12-27 16:12:00 Test Item Value Reference Range Interpretation Comments Phosphorus (test code = Phosphorus) 2.9 2.5-4.5 [facility] [id number] 16:12:00 Test Item Value Reference Range Interpretation Comments Troponin-I (test code no gt See_Comment [Auto mated message] The = Troponin-I) system which g enerated this result transmit garrett reference range : <=0.40. The reference r ondina was not used to interpr et this result as cassie l/abnormal. [facility]2018-12-27 16:12:00 Test Item Value Reference Range Interpretation Comments Magnesium Lvl (test code = Magnesium 2.1 1.8-2.4 Lvl) [facility]2018-12-27 16:12:00 Test Item Value Reference Range Interpretation Comments Alk Phos (test code = Alk Phos) 132 39-136 [facility]2018-12-27 16:12:00 Test Item Value Reference Range Interpretation Comments Potassium Lvl (test code = Potassium 3.8 3.5-5.1 Lvl) [facility]2018-12-27 16:12:00 Test Item Value Reference Range Interpretation Comments Chloride Lvl (test code = Chloride Lvl) 108 95-109 [facility]2018-12-27 16:12:00 Test Item Value Reference Range Interpretation Comments Sodium Lvl (test code = Sodium Lvl) 141 135-145 [facility]2018-12-27 16:12:00 Test Item Value Reference Range Interpretation Comments eGFR (test code = eGFR) 96 [facility]2018-12-27 16:12:00 Test Item Value Reference Range Interpretation Comments B/C Ratio (test code = B/C Ratio) 7 1 6-25 [facility]2018-12-27 16:12:00 Test Item Value Reference Range Interpretation Comments AST (test code = AST) 15 See_Comment [Auto mated message] The system which ge nerated this result transmit garrett reference range : <=37. The reference range was not used to interpr et this result as cassie l/abnormal. [facility]2018-12-27 16:12:00 Test Item Value Reference Range Interpretation Comments Creatinine Lvl (test code = Creatinine 0.83 0.50-1.40 Lvl) [facility]2018-12-27 16:12:00 Test Item Value Reference Range Interpretation Comments ALT (test code = ALT) 20 See_Comment [Auto mated message] The system which ge nerated this result transmit garrett reference range : <=65. The reference range was not used to interpr et this result as cassie l/abnormal. [facility]2018-12-27 16:12:00 Test Item Value Reference Range Interpretation Comments AGAP (test code = AGAP) 13.8 10.0-20.0 [facility]2018-12-27 16:12:00 Test Item Value Reference Range Interpretation Comments Albumin Lvl (test code = Albumin Lvl) 2.5 3.5-5.0 [facility]2018-12-27 16:12:00 Test Item Value Reference Range Interpretation Comments Glucose Lvl (test code = Glucose Lvl) 153 70-99 [facility]2018-12-27 16:12:00 Test Item Value Reference Range Interpretation Comments BUN (test code = BUN) 6 7-22 [facility]2018-12-27 16:12:00 Test Item Value Reference Range Interpretation Comments CO2 (test code = CO2) 23 24-32 [facility]2018-12-27 16:12:00 Test Item Value Reference Range Interpretation Comments Calcium Lvl (test code = Calcium Lvl) 8.8 8.5-10.5 [facility]2018-12-27 16:12:00 Test Item Value Reference Range Interpretation Comments Bili Total (test code = Bili Total) 0.2 0.2-1.3 [facility]2018-12-27 16:12:00 Test Item Value Reference Range Interpretation Comments Total Protein (test code = Total 7.5 6.4-8.4 Protein) [facility]2018-12-27 16:12:00 Test Item Value Reference Range Interpretation Comments Globulin (test code = Globulin) 5.0 2.7-4.2 [place] [id number] 16:12:00 Test Item Value Reference Range Interpretation Comments A/G Ratio (test code = A/G Ratio) 0.5 1 0.7-1.6 [facility]2018-12-27 16:12:00 Test Item Value Reference Range Interpretation Comments Phosphorus (test code = Phosphorus) 2.9 2.5-4.5 [facility] [id number] 16:12:00 Test Item Value Reference Range Interpretation Comments Troponin-I (test code = Troponin-I) no gt <=0.40 [facility]2018-12-27 16:12:00 Test Item Value Reference Range Interpretation Comments Magnesium Lvl (test code = Magnesium 2.1 1.8-2.4 Lvl) [facility]2018-12-27 16:12:00 Test Item Value Reference Range Interpretation Comments Alk Phos (test code = Alk Phos) 132 39-136 [facility]2018-12-27 16:12:00 Test Item Value Reference Range Interpretation Comments Potassium Lvl (test code = Potassium 3.8 3.5-5.1 Lvl) [facility]2018-12-27 16:12:00 Test Item Value Reference Range Interpretation Comments Chloride Lvl (test code = Chloride Lvl) 108 95-109 [facility]2018-12-27 16:12:00 Test Item Value Reference Range Interpretation Comments Sodium Lvl (test code = Sodium Lvl) 141 135-145 [facility]2018-12-27 16:12:00 Test Item Value Reference Range Interpretation Comments eGFR (test code = eGFR) 96 [facility]2018-12-27 16:12:00 Test Item Value Reference Range Interpretation Comments B/C Ratio (test code = B/C Ratio) 7 1 6-25 [facility]2018-12-27 16:12:00 Test Item Value Reference Range Interpretation Comments AST (test code = AST) 15 <=37 [facility]2018-12-27 16:12:00 Test Item Value Reference Range Interpretation Comments Creatinine Lvl (test code = Creatinine 0.83 0.50-1.40 Lvl) [facility]2018-12-27 16:12:00 Test Item Value Reference Range Interpretation Comments ALT (test code = ALT) 20 <=65 [facility]2018-12-27 16:12:00 Test Item Value Reference Range Interpretation Comments AGAP (test code = AGAP) 13.8 10.0-20.0 [facility]2018-12-27 16:12:00 Test Item Value Reference Range Interpretation Comments Albumin Lvl (test code = Albumin Lvl) 2.5 3.5-5.0 [facility]2018-12-27 16:12:00 Test Item Value Reference Range Interpretation Comments Glucose Lvl (test code = Glucose Lvl) 153 70-99 [facility]2018-12-27 16:12:00 Test Item Value Reference Range Interpretation Comments BUN (test code = BUN) 6 7-22 [facility]2018-12-27 16:12:00 Test Item Value Reference Range Interpretation Comments CO2 (test code = CO2) 23 24-32 [facility]2018-12-27 16:12:00 Test Item Value Reference Range Interpretation Comments Calcium Lvl (test code = Calcium Lvl) 8.8 8.5-10.5 [facility]2018-12-27 16:12:00 Test Item Value Reference Range Interpretation Comments Bili Total (test code = Bili Total) 0.2 0.2-1.3 [facility]2018-12-27 16:12:00 Test Item Value Reference Range Interpretation Comments Total Protein (test code = Total 7.5 6.4-8.4 Protein) [facility]2018-12-27 16:12:00 Test Item Value Reference Range Interpretation Comments Globulin (test code = Globulin) 5.0 2.7-4.2 [facility]2018-12-27 16:12:00 Test Item Value Reference Range Interpretation Comments A/G Ratio (test code = A/G Ratio) 0.5 1 0.7-1.6 [facility]2018-12-27 16:12:00 Test Item Value Reference Range Interpretation Comments Phosphorus (test code = Phosphorus) 2.9 2.5-4.5 [facility] [id number] 16:12:00 Test Item Value Reference Range Interpretation Comments Troponin-I (test code no gt See_Comment [Auto mated message] The = Troponin-I) system which g enerated this result transmit garrett reference range : <=0.40. The reference r ondina was not used to interpr et this result as cassie l/abnormal. [facility]2018-12-27 16:12:00 Test Item Value Reference Range Interpretation Comments Magnesium Lvl (test code = Magnesium 2.1 1.8-2.4 Lvl) [place] [id number] 16:12:00 Test Item Value Reference Range Interpretation Comments Alk Phos (test code = Alk Phos) 132 39-136 [facility]2018-12-27 16:12:00 Test Item Value Reference Range Interpretation Comments Potassium Lvl (test code = Potassium 3.8 3.5-5.1 Lvl) [facility]2018-12-27 16:12:00 Test Item Value Reference Range Interpretation Comments Chloride Lvl (test code = Chloride Lvl) 108 95-109 [facility]2018-12-27 16:12:00 Test Item Value Reference Range Interpretation Comments Sodium Lvl (test code = Sodium Lvl) 141 135-145 [place] [id number] 16:12:00 Test Item Value Reference Range Interpretation Comments eGFR (test code = eGFR) 96 [facility]2018-12-27 16:12:00 Test Item Value Reference Range Interpretation Comments B/C Ratio (test code = B/C Ratio) 7 1 6-25 [place] [id number] 16:12:00 Test Item Value Reference Range Interpretation Comments AST (test code = AST) 15 See_Comment [Auto mated message] The system which ge nerated this result transmit garrett reference range : <=37. The reference range was not used to interpr et this result as cassie l/abnormal. [place] [id number] 16:12:00 Test Item Value Reference Range Interpretation Comments Creatinine Lvl (test code = Creatinine 0.83 0.50-1.40 Lvl) [facility]2018-12-27 16:12:00 Test Item Value Reference Range Interpretation Comments ALT (test code = ALT) 20 See_Comment [Auto mated message] The system which ge nerated this result transmit garrett reference range : <=65. The reference range was not used to interpr et this result as cassie l/abnormal. [facility] [id number] 16:12:00 Test Item Value Reference Range Interpretation Comments AGAP (test code = AGAP) 13.8 10.0-20.0 [facility]2018-12-27 16:12:00 Test Item Value Reference Range Interpretation Comments Albumin Lvl (test code = Albumin Lvl) 2.5 3.5-5.0 [facility]2018-12-27 16:12:00 Test Item Value Reference Range Interpretation Comments Glucose Lvl (test code = Glucose Lvl) 153 70-99 [facility] [id number] 16:12:00 Test Item Value Reference Range Interpretation Comments BUN (test code = BUN) 6 7-22 [facility] [id number] 16:12:00 Test Item Value Reference Range Interpretation Comments CO2 (test code = CO2) 23 24-32 [facility]2018-12-27 16:12:00 Test Item Value Reference Range Interpretation Comments Calcium Lvl (test code = Calcium Lvl) 8.8 8.5-10.5 [facility] [id number] 16:12:00 Test Item Value Reference Range Interpretation Comments Bili Total (test code = Bili Total) 0.2 0.2-1.3 [facility] [id number] 16:12:00 Test Item Value Reference Range Interpretation Comments Total Protein (test code = Total 7.5 6.4-8.4 Protein) [facility]2018-12-27 16:12:00 Test Item Value Reference Range Interpretation Comments Globulin (test code = Globulin) 5.0 2.7-4.2 [facility] [id number] 16:12:00 Test Item Value Reference Range Interpretation Comments A/G Ratio (test code = A/G Ratio) 0.5 1 0.7-1.6 [facility]2018-12-27 16:12:00 Test Item Value Reference Range Interpretation Comments Phosphorus (test code = Phosphorus) 2.9 2.5-4.5 [facility] [id number] 16:12:00 Test Item Value Reference Range Interpretation Comments Troponin-I (test code = Troponin-I) no gt <=0.40 [facility]2018-12-27 16:12:00 Test Item Value Reference Range Interpretation Comments Magnesium Lvl (test code = Magnesium 2.1 1.8-2.4 Lvl) [facility]2018-12-27 16:12:00 Test Item Value Reference Range Interpretation Comments Alk Phos (test code = Alk Phos) 132 39-136 [facility]2018-12-27 16:12:00 Test Item Value Reference Range Interpretation Comments Potassium Lvl (test code = Potassium 3.8 3.5-5.1 Lvl) [facility]2018-12-27 16:12:00 Test Item Value Reference Range Interpretation Comments Chloride Lvl (test code = Chloride Lvl) 108 95-109 [facility]2018-12-27 16:12:00 Test Item Value Reference Range Interpretation Comments Sodium Lvl (test code = Sodium Lvl) 141 135-145 [facility]2018-12-27 16:12:00 Test Item Value Reference Range Interpretation Comments eGFR (test code = eGFR) 96 [facility]2018-12-27 16:12:00 Test Item Value Reference Range Interpretation Comments B/C Ratio (test code = B/C Ratio) 7 1 6-25 [facility]2018-12-27 16:12:00 Test Item Value Reference Range Interpretation Comments AST (test code = AST) 15 <=37 [place] [id number] 16:12:00 Test Item Value Reference Range Interpretation Comments Creatinine Lvl (test code = Creatinine 0.83 0.50-1.40 Lvl) [facility]2018-12-27 16:12:00 Test Item Value Reference Range Interpretation Comments ALT (test code = ALT) 20 <=65 [place] [id number] 16:12:00 Test Item Value Reference Range Interpretation Comments AGAP (test code = AGAP) 13.8 10.0-20.0 [facility]2018-12-27 16:12:00 Test Item Value Reference Range Interpretation Comments Albumin Lvl (test code = Albumin Lvl) 2.5 3.5-5.0 [facility]2018-12-27 16:12:00 Test Item Value Reference Range Interpretation Comments Glucose Lvl (test code = Glucose Lvl) 153 70-99 [id number] 16:12:00 Test Item Value Reference Range Interpretation Comments BUN (test code = BUN) 6 7-22 [facility]2018-12-27 16:12:00 Test Item Value Reference Range Interpretation Comments CO2 (test code = CO2) 23 24-32 [id number] 16:12:00 Test Item Value Reference Range Interpretation Comments Calcium Lvl (test code = Calcium Lvl) 8.8 8.5-10.5 [facility]2018-12-27 16:12:00 Test Item Value Reference Range Interpretation Comments Bili Total (test code = Bili Total) 0.2 0.2-1.3 [facility]2018-12-27 16:12:00 Test Item Value Reference Range Interpretation Comments Total Protein (test code = Total 7.5 6.4-8.4 Protein) [facility]2018-12-27 16:12:00 Test Item Value Reference Range Interpretation Comments Globulin (test code = Globulin) 5.0 2.7-4.2 [facility]2018-12-27 16:12:00 Test Item Value Reference Range Interpretation Comments A/G Ratio (test code = A/G Ratio) 0.5 1 0.7-1.6 [facility]2018-12-27 16:12:00 Test Item Value Reference Range Interpretation Comments Phosphorus (test code = Phosphorus) 2.9 2.5-4.5 [facility]2018-12-27 04:37:00 Test Item Value Reference Range Interpretation Comments Troponin-I (test code no gt See_Comment [Auto mated message] The = Troponin-I) system which g enerated this result transmit garrett reference range : <=0.40. The reference r ondina was not used to interpr et this result as cassie l/abnormal. [facility]2018-12-27 04:37:00 Test Item Value Reference Range Interpretation Comments proBNP (test code = 2678 See_Comment [Automa garrett message] The proBNP) system which ge nerated this result tra nsmitted reference range : <=125. The reference r ondina was not used to int erpret this result as cassie l/abnormal. [facility] Hos[id number] 04:37:00 Test Item Value Reference Range Interpretation Comments CO2 (test code = CO2) 25 24-32 [facility] Ho[id number] 04:37:00 Test Item Value Reference Range Interpretation Comments Calcium Lvl (test code = Calcium Lvl) 8.1 8.5-10.5 [facility] HospitalZeqlbdhSQHYSSFLEUCD4527-23-15 04:37:00 Test Item Value Reference Range Interpretation Comments Potassium Lvl (test code = Potassium 3.6 3.5-5.1 Lvl) [facility] HospitalMzexkydGKRELHLIOBSK1556-87-01 04:37:00 Test Item Value Reference Range Interpretation Comments Chloride Lvl (test code = Chloride Lvl) 108 95-109 [facility] HospitalPyvivmxOYNGCIFJSQJS1186-79-64 04:37:00 Test Item Value Reference Range Interpretation Comments Sodium Lvl (test code = Sodium Lvl) 142 135-145 [facility] HospitalGkmyeexPNWIGKXVNWET8966-86-70 04:37:00 Test Item Value Reference Range Interpretation Comments Creatinine Lvl (test code = Creatinine 0.80 0.50-1.40 Lvl) [facility] Hosp[id number] 04:37:00 Test Item Value Reference Range Interpretation Comments BUN (test code = BUN) 8 7-22 [facility] HospitalIkeqnetKZAHGSKAWXXJ2761-94-18 04:37:00 Test Item Value Reference Range Interpretation Comments Glucose Lvl (test code = Glucose Lvl) 88 70-99 [facility] HospitalEasejvtUXLKAMZELAYO9448-41-56 04:37:00 Test Item Value Reference Range Interpretation Comments eGFR (test code = eGFR) 97 [facility] HospitalTfmmsjzGRIDELCMFNSM5963-13-50 04:37:00 Test Item Value Reference Range Interpretation Comments AGAP (test code = AGAP) 12.6 10.0-20.0 [id number] 04:37:00 Test Item Value Reference Range Interpretation Comments WBC (test code = WBC) 7.8 3.7-10.4 [facility] CleburneVygqhroOLHJAWGAIA0651-01-73 04:37:00 Test Item Value Reference Range Interpretation Comments RBC (test code = RBC) 3.53 4.70-6.10 [facility]neOgdjyvwPZGYJFQNLK7445-72-20 04:37:00 Test Item Value Reference Range Interpretation Comments Hgb (test code = Hgb) 9.0 14.0-18.0 [facility] Cle[id number] 04:37:00 Test Item Value Reference Range Interpretation Comments MCH (test code = MCH) 25.4 pg 27.0-31.0 [facility] CleburneLfgskuiILKVKICGNS0563-90-69 04:37:00 Test Item Value Reference Range Interpretation Comments Hct (test code = Hct) 27.5 42.0-54.0 [facility] CleburneSsdqousSDMPPZUKBC2746-39-14 04:37:00 Test Item Value Reference Range Interpretation Comments MCV (test code = MCV) 78.1 80.0-94.0 [facility] Cle[facility]neDnfudftXVCMCAPHJC6401-58-60 04:37:00 Test Item Value Reference Range Interpretation Comments Platelet (test code = Platelet) 400 133-450 [id number] 04:37:00 Test Item Value Reference Range Interpretation Comments MCHC (test code = MCHC) 32.5 32.0-36.0 [facility] CleburneHaxegjqZKWCWUBRNN9546-55-74 04:37:00 Test Item Value Reference Range Interpretation Comments MPV (test code = MPV) 8.2 7.4-10.4 [facility] Clebur[id number] 04:37:00 Test Item Value Reference Range Interpretation Comments RDW (test code = RDW) 17.8 11.5-14.5 [facility] Cle[facility]neKtkwoygDONMCNDDTJ4051-44-92 04:37:00 Test Item Value Reference Range Interpretation Comments Microcyte (test code = 1+ *ABN*(02/27/18 Microcyte) 10:37 PM) [facility] C[id number] 04:37:00 Test Item Value Reference Range Interpretation Comments Eosinophils (test code = 4.0 See_Comment [A utomated message] The Eosinophils) system which ge nerated this result tra nsmitted reference range : <=4.0. The reference r ondina was not used to int erpret this result as normal/abnormal . [id number] 04:37:00 Test Item Value Reference Range Interpretation Comments Neutrophils # (test code = Neutrophils 4.8 1.5-8.1 #) [facility] C[id number] 04:37:00 Test Item Value Reference Range Interpretation Comments Basophils (test code = 1.2 See_Comment [Aut omated message] The Basophils) system which ge nerated this result tra nsmitted reference range : <=1.0. The reference r ondina was not used to int erpret this result as normal/abnormal . [facility] Cle[facility]neJwunfblZNWRYKKSLH8304-25-23 04:37:00 Test Item Value Reference Range Interpretation Comments Lymphocytes # (test code = Lymphocytes 1.8 1.0-5.5 #) [facility] Cle[facility]neGxiksmcNVCJAXLMRX7066-42-48 04:37:00 Test Item Value Reference Range Interpretation Comments Monocytes # (test code 0.7 See_Comment [Aut omated message] The = Monocytes #) system which generated this result tra nsmitted reference range : <=0.8. The reference r ondina was not used to int erpret this result as normal/abnormal . [facility] CleburneOeulbuxOPTMSHWSWD0973-16-46 04:37:00 Test Item Value Reference Range Interpretation Comments Basophils # (test code 0.1 See_Comment [Aut omated message] The = Basophils #) system which generated this result tra nsmitted reference range : <=0.2. The reference r ondina was not used to int erpret this result as normal/abnormal . [facility] Cle[id number] 04:37:00 Test Item Value Reference Range Interpretation Comments Eosinophils # (test code 0.3 See_Comment [A utomated message] The = Eosinophils #) system whic h generated this result tra nsmitted reference range : <=0.5. The reference r ondina was not used to int erpret this result as normal/abnormal . [facility] Clebur[id number] 04:37:00 Test Item Value Reference Range Interpretation Comments Lymphocytes (test code = Lymphocytes) 23.7 20.0-40.0 [facility] CleburneBbisixuVQRKYFNFWI1084-69-10 04:37:00 Test Item Value Reference Range Interpretation Comments Monocytes (test code = Monocytes) 8.8 2.0-12.0 [facility] Cl[id number] 04:37:00 Test Item Value Reference Range Interpretation Comments Segs (test code = Segs) 62.3 45.0-75.0 [facility]2018-12-27 04:37:00 Test Item Value Reference Range Interpretation Comments UA Gran Cast (test code = UA Gran 6-10 /LPF Cast) [facility] AND [id number] 04:37:00 Test Item Value Reference Range Interpretation Comments UA Color (test code = Yellow *NA*(02/27/18 UA Color) 10:37 PM) [facility] AND [id number] 04:37:00 Test Item Value Reference Range Interpretation Comments UA Turbidity (test code Moderate = UA Turbidity) *ABN*(02/27/18 10:37 PM) [facility] AND [id number] 04:37:00 Test Item Value Reference Range Interpretation Comments UA Amorph Atiya (test code = Occasional /HPF UA Amorph Atiya) [facility] AND [id number] 04:37:00 Test Item Value Reference Range Interpretation Comments UA Bacteria (test code = UA Occasional /HPF Bacteria) [facility] AND [id number] 04:37:00 Test Item Value Reference Range Interpretation Comments UA Mucus (test code = UA Mucus) Few /LPF [facility] AND [id number] 04:37:00 Test Item Value Reference Range Interpretation Comments UA RBC (test code = 1 See_Comment [Automa garrett message] The UA RBC) system which ge nerated this result transmit garrett reference range : <=2. The reference range was not used to interpr et this result as cassie l/abnormal. [facility] AND [id number] 04:37:00 Test Item Value Reference Range Interpretation Comments UA Leuk Est (test Negative (02/27/18 10:37 code = UA Leuk Est) PM) [facility] AND [id number] 04:37:00 Test Item Value Reference Range Interpretation Comments UA Nitrite (test code Negative (02/27/18 = UA Nitrite) 10:37 PM) [facility] AND [id number] 04:37:00 Test Item Value Reference Range Interpretation Comments UA WBC (test code = 1 See_Comment [Automa garrett message] The UA WBC) system which ge nerated this result transmit garrett reference range : <=5. The reference range was not used to interpr et this result as cassie l/abnormal. [facility] AND [id number] 04:37:00 Test Item Value Reference Range Interpretation Comments UA Sq Epi (test code = UA Sq Occasional /LPF Epi) [facility] [id number] 04:37:00 Test Item Value Reference Range Interpretation Comments UA Protein (test code Negative (02/27/18 = UA Protein) 10:37 PM) [facility] [id number] 04:37:00 Test Item Value Reference Range Interpretation Comments UA Spec Grav (test code = UA Spec 1.009 1 Grav) [facility] [id number] 04:37:00 Test Item Value Reference Range Interpretation Comments UA pH (test code = UA pH) 6.0 1 5.0-8.0 [facility] [id number] 04:37:00 Test Item Value Reference Range Interpretation Comments UA Ketones (test code Negative *NA*(02/27/18 = UA Ketones) 10:37 PM) [facility] [id number] 04:37:00 Test Item Value Reference Range Interpretation Comments UA Urobilinogen (test code = UA <=1.0 mg/dL 0.1-1.0 Urobilinogen) [facility] [id number] 04:37:00 Test Item Value Reference Range Interpretation Comments UA Blood (test code = Negative (02/27/18 10:37 [facility] Blood) PM) [facility] [id number] 04:37:00 Test Item Value Reference Range Interpretation Comments UA Glucose (test code Negative *NA*(02/27/18 = UA Glucose) 10:37 PM) [facility] [id number] 04:37:00 Test Item Value Reference Range Interpretation Comments UA Bili (test code = Negative *NA*(02/27/18 UA Bili) 10:37 PM) [facility] [id number] 04:37:00 Test Item Value Reference Range Interpretation Comments Influ A (test code = Negative (02/27/18 10:37 Influ A) PM) [facility] [id number] 04:37:00 Test Item Value Reference Range Interpretation Comments Influ B (test code = Negative (02/27/18 10:37 Influ B) PM[facility] [id number] 04:37:00 Test Item Value Reference Range Interpretation Comments Troponin-I (test code no gt See_Comment [Auto mated message] The = Troponin-I) system which g enerated this result transmit garrett reference range : <=0.40. The reference r ondina was not used to interpr et this result as cassie l/abnormal. [facility] [id number] 04:37:00 Test Item Value Reference Range Interpretation Comments proBNP (test code = 2678 See_Comment [Automa garrett message] The proBNP) system which ge nerated this result tra nsmitted reference range : <=125. The reference r ondina was not used to int erpret this result as cassie l/abnormal. [facility] UoeuotnRTTOOICHGQPD0128-19-24 04:37:00 Test Item Value Reference Range Interpretation Comments CO2 (test code = CO2) 25 24-32 [facility] DallasBxpfihoPGQFRXGEWMIR9690-79-73 04:37:00 Test Item Value Reference Range Interpretation Comments Calcium Lvl (test code = Calcium Lvl) 8.1 8.5-10.5 [facility] DallasLvdmjyrDRRFBVQAYQXL4969-38-95 04:37:00 Test Item Value Reference Range Interpretation Comments Potassium Lvl (test code = Potassium 3.6 3.5-5.1 Lvl) [facility] DallasVsjaetzKGIFZJSWUURQ9676-48-29 04:37:00 Test Item Value Reference Range Interpretation Comments Chloride Lvl (test code = Chloride Lvl) 108 95-109 [facility] DallasFjacbgcHJPRXVWIJSYO8284-24-44 04:37:00 Test Item Value Reference Range Interpretation Comments Sodium Lvl (test code = Sodium Lvl) 142 135-145 [facility] DallasDihxlcoVWUHUBWCESFL2877-18-56 04:37:00 Test Item Value Reference Range Interpretation Comments Creatinine Lvl (test code = Creatinine 0.80 0.50-1.40 Lvl) [facility] DallasGnxswlfSPTECPZUIYPL1539-30-82 04:37:00 Test Item Value Reference Range Interpretation Comments BUN (test code = BUN) 8 7-22 [facility] DallasKoxckitOPGGPRCJYRGC3388-46-76 04:37:00 Test Item Value Reference Range Interpretation Comments Glucose Lvl (test code = Glucose Lvl) 88 70-99 [facility] DallasQlzhnsyQELJWTPZOMJV3509-29-31 04:37:00 Test Item Value Reference Range Interpretation Comments eGFR (test code = eGFR) 97 [facility]Dq[facility]msAPFHCOQIESMY8778-67-26 04:37:00 Test Item Value Reference Range Interpretation Comments AGAP (test code = AGAP) 12.6 10.0-20.0 [facility]neArxucbdNWCLCCKBEY1711-84-30 04:37:00 Test Item Value Reference Range Interpretation Comments WBC (test code = WBC) 7.8 3.7-10.4 [facility]neGhdgcplVACQQOTMPO9926-79-06 04:37:00 Test Item Value Reference Range Interpretation Comments RBC (test code = RBC) 3.53 4.70-6.10 [facility]neBybhazgJIKTMXQOQA5173-95-55 04:37:00 Test Item Value Reference Range Interpretation Comments Hgb (test code = Hgb) 9.0 14.0-18.0 [facility]neHoddqzzWZMFNMTGMI6030-56-19 04:37:00 Test Item Value Reference Range Interpretation Comments MCH (test code = MCH) 25.4 pg 27.0-31.0 [facility]neQtkhwghWKFWPGYVFN3673-46-57 04:37:00 Test Item Value Reference Range Interpretation Comments Hct (test code = Hct) 27.5 42.0-54.0 [facility]neCnxukavOKSDTBKKPS2100-23-42 04:37:00 Test Item Value Reference Range Interpretation Comments MCV (test code = MCV) 78.1 80.0-94.0 [facility]neJddrwwbQTSRSKYRFE2585-20-06 04:37:00 Test Item Value Reference Range Interpretation Comments Platelet (test code = Platelet) 400 133-450 [facility]neBpmhpdeBRGRQODWXJ0281-88-99 04:37:00 Test Item Value Reference Range Interpretation Comments MCHC (test code = MCHC) 32.5 32.0-36.0 [facility]neRzmrhsjUKCIQFDGGS7659-80-18 04:37:00 Test Item Value Reference Range Interpretation Comments MPV (test code = MPV) 8.2 7.4-10.4 [facility] Cle[facility]neUqueepjVBYNRZWLPN0128-50-44 04:37:00 Test Item Value Reference Range Interpretation Comments RDW (test code = RDW) 17.8 11.5-14.5 [facility]neGphtcpfNGSYAJBPAV2105-70-20 04:37:00 Test Item Value Reference Range Interpretation Comments Microcyte (test code = 1+ *ABN*(02/27/18 Microcyte) 10:37 PM) [facility]neWacfqsfPZCKJCMHEQ0992-36-49 04:37:00 Test Item Value Reference Range Interpretation Comments Eosinophils (test code = 4.0 See_Comment [A utomated message] The Eosinophils) system which ge nerated this result tra nsmitted reference range : <=4.0. The reference r ondina was not used to int erpret this result as normal/abnormal . [facility]neXqhibhsBXQDWIQHJQ2229-41-77 04:37:00 Test Item Value Reference Range Interpretation Comments Neutrophils # (test code = Neutrophils 4.8 1.5-8.1 #) [facility]neLkbgnwgHPSTFBWVNK3750-31-96 04:37:00 Test Item Value Reference Range Interpretation Comments Basophils (test code = 1.2 See_Comment [Aut omated message] The Basophils) system which ge nerated this result tra nsmitted reference range : <=1.0. The reference r ondina was not used to int erpret this result as normal/abnormal . [facility] Cle[facility]neMyaujwkRAAAUGYHSO9519-34-67 04:37:00 Test Item Value Reference Range Interpretation Comments Lymphocytes # (test code = Lymphocytes 1.8 1.0-5.5 #) [facility]neQguyxatFLHPVYCKQX1769-74-38 04:37:00 Test Item Value Reference Range Interpretation Comments Monocytes # (test code 0.7 See_Comment [Aut omated message] The = Monocytes #) system which generated this result tra nsmitted reference range : <=0.8. The reference r ondina was not used to int erpret this result as normal/abnormal . [facility]nePnktkvsEPXUDATETT1967-91-18 04:37:00 Test Item Value Reference Range Interpretation Comments Basophils # (test code 0.1 See_Comment [Aut omated message] The = Basophils #) system which generated this result tra nsmitted reference range : <=0.2. The reference r ondina was not used to int erpret this result as normal/abnormal . [facility] Cle[facility]neXrxfavbSTLGAISCAC5634-30-79 04:37:00 Test Item Value Reference Range Interpretation Comments Eosinophils # (test code 0.3 See_Comment [A utomated message] The = Eosinophils #) system whic h generated this result tra nsmitted reference range : <=0.5. The reference r ondina was not used to int erpret this result as normal/abnormal . [facility]neQuiqbasVDQVXAJBTN3588-54-92 04:37:00 Test Item Value Reference Range Interpretation Comments Lymphocytes (test code = Lymphocytes) 23.7 20.0-40.0 [facility]neJpxkyxdTAYGDSXGZE2950-11-70 04:37:00 Test Item Value Reference Range Interpretation Comments Monocytes (test code = Monocytes) 8.8 2.0-12.0 [facility] Cle[facility]neVpmgsdaQPAJNYLJJQ7523-03-67 04:37:00 Test Item Value Reference Range Interpretation Comments Segs (test code = Segs) 62.3 45.0-75.0 [facility] AND [id number] 04:37:00 Test Item Value Reference Range Interpretation Comments UA Gran Cast (test code = UA Gran 6-10 /LPF Cast) [facility] AND [id number] 04:37:00 Test Item Value Reference Range Interpretation Comments UA Color (test code = Yellow *NA*(02/27/18 UA Color) 10:37 PM) [facility] AND [id number] 04:37:00 Test Item Value Reference Range Interpretation Comments UA Turbidity (test code Moderate = UA Turbidity) *ABN*(02/27/18 10:37 PM) [facility] AND [id number] 04:37:00 Test Item Value Reference Range Interpretation Comments UA Amorph Atiya (test code = Occasional /HPF UA Amorph Atiya) [facility] AND [id number] 04:37:00 Test Item Value Reference Range Interpretation Comments UA Bacteria (test code = UA Occasional /HPF Bacteria) [facility] AND [id number] 04:37:00 Test Item Value Reference Range Interpretation Comments UA Mucus (test code = UA Mucus) Few /LPF [facility] AND [id number] 04:37:00 Test Item Value Reference Range Interpretation Comments UA RBC (test code = 1 See_Comment [Automa garrett message] The UA RBC) system which ge nerated this result transmit garrett reference range : <=2. The reference range was not used to interpr et this result as cassie l/abnormal. [facility] AND [id number] 04:37:00 Test Item Value Reference Range Interpretation Comments UA Leuk Est (test Negative (02/27/18 10:37 code = UA Leuk Est) PM) [facility] AND [id number] 04:37:00 Test Item Value Reference Range Interpretation Comments UA Nitrite (test code Negative (02/27/18 = UA Nitrite) 10:37 PM) [facility] AND [id number] 04:37:00 Test Item Value Reference Range Interpretation Comments UA WBC (test code = 1 See_Comment [Automa garrett message] The UA WBC) system which ge nerated this result transmit garrett reference range : <=5. The reference range was not used to interpr et this result as cassie l/abnormal. [facility] AND [id number] 04:37:00 Test Item Value Reference Range Interpretation Comments UA Sq Epi (test code = UA Sq Occasional /LPF Epi) [facility] AND [id number] 04:37:00 Test Item Value Reference Range Interpretation Comments UA Protein (test code Negative (02/27/18 = UA Protein) 10:37 PM) [facility] AND [id number] 04:37:00 Test Item Value Reference Range Interpretation Comments UA Spec Grav (test code = UA Spec 1.009 1 Grav) [facility] AND [id number] 04:37:00 Test Item Value Reference Range Interpretation Comments UA pH (test code = UA pH) 6.0 1 5.0-8.0 [facility] AND [id number] 04:37:00 Test Item Value Reference Range Interpretation Comments UA Ketones (test code Negative *NA*(02/27/18 = UA Ketones) 10:37 PM) [facility] AND [id number] 04:37:00 Test Item Value Reference Range Interpretation Comments UA Urobilinogen (test code = UA <=1.0 mg/dL 0.1-1.0 Urobilinogen) [facility] AND [id number] 04:37:00 Test Item Value Reference Range Interpretation Comments UA Blood (test code = Negative (02/27/18 10:37 UA Blood) PM) [facility] AND [id number] 04:37:00 Test Item Value Reference Range Interpretation Comments UA Glucose (test code Negative *NA*(02/27/18 = UA Glucose) 10:37 PM) [facility] AND [id number] 04:37:00 Test Item Value Reference Range Interpretation Comments UA Bili (test code = Negative *NA*(02/27/18 UA Bili) 10:37 PM) [facility] - [id number] 04:37:00 Test Item Value Reference Range Interpretation Comments Influ A (test code = Negative (02/27/18 10:37 Influ A) PM) [facility]annVIRAL - [id number] 04:37:00 Test Item Value Reference Range Interpretation Comments Influ B (test code = Negative (02/27/18 10:37 Influ B) PM) [facility]annCARDIAC [id number] 04:37:00 Test Item Value Reference Range Interpretation Comments Troponin-I (test code no gt See_Comment [Auto mated message] The = Troponin-I) system which g enerated this result transmit garrett reference range : <=0.40. The reference r ondina was not used to interpr et this result as cassie l/abnormal. [facility]annCARDIAC [id number] 04:37:00 Test Item Value Reference Range Interpretation Comments proBNP (test code = 2678 See_Comment [Automa garrett message] The proBNP) system which ge nerated this result tra nsmitted reference range : <=125. The reference r ondina was not used to int erpret this result as cassie l/abnormal. [facility] EdoxgirXIRLLAAVKCWF6794-24-68 04:37:00 Test Item Value Reference Range Interpretation Comments CO2 (test code = CO2) 25 24-32 [facility] DallasYojsyvtGRMQBVMINXRV4494-57-21 04:37:00 Test Item Value Reference Range Interpretation Comments Calcium Lvl (test code = Calcium Lvl) 8.1 8.5-10.5 [facility] DallasUaxwykgOVIQGQKYSYWC1048-06-58 04:37:00 Test Item Value Reference Range Interpretation Comments Potassium Lvl (test code = Potassium 3.6 3.5-5.1 Lvl) [facility] DallasPpgpkliJRPBUPEZHPOF3293-79-52 04:37:00 Test Item Value Reference Range Interpretation Comments Chloride Lvl (test code = Chloride Lvl) 108 95-109 [facility] DallasNyxkaazARAJINAULIVJ6919-78-76 04:37:00 Test Item Value Reference Range Interpretation Comments Sodium Lvl (test code = Sodium Lvl) 142 135-145 [facility] DallasSvzlsnxJQZPSTUMZOCX9725-41-01 04:37:00 Test Item Value Reference Range Interpretation Comments Creatinine Lvl (test code = Creatinine 0.80 0.50-1.40 Lvl) [facility]OjxkefeFXGTNCJJVJVV4883-03-93 04:37:00 Test Item Value Reference Range Interpretation Comments BUN (test code = BUN) 8 7-22 [facility] HospitalJzftqqkGKHMIFUFCXER1574-13-97 04:37:00 Test Item Value Reference Range Interpretation Comments Glucose Lvl (test code = Glucose Lvl) 88 70-99 [facility] HospitalNenmxqhCRSFHZZCXJAG6009-13-74 04:37:00 Test Item Value Reference Range Interpretation Comments eGFR (test code = eGFR) 97 [facility] HospitalIlvhubaZCPBYZIMFIRR6326-93-00 04:37:00 Test Item Value Reference Range Interpretation Comments AGAP (test code = AGAP) 12.6 10.0-20.0 [facility]neWkqiziwHJRGPYNGZG8006-27-25 04:37:00 Test Item Value Reference Range Interpretation Comments WBC (test code = WBC) 7.8 3.7-10.4 [facility]neOnqineeHWBCSGHDWH5144-59-32 04:37:00 Test Item Value Reference Range Interpretation Comments RBC (test code = RBC) 3.53 4.70-6.10 [facility]neWbgjcdcFOHVRCZFYY4176-15-02 04:37:00 Test Item Value Reference Range Interpretation Comments Hgb (test code = Hgb) 9.0 14.0-18.0 [facility]neSwpsthyLEZGQVSSEU1565-73-52 04:37:00 Test Item Value Reference Range Interpretation Comments MCH (test code = MCH) 25.4 pg 27.0-31.0 [facility]nePsbaekxVUMKEZKMHN5974-33-35 04:37:00 Test Item Value Reference Range Interpretation Comments Hct (test code = Hct) 27.5 42.0-54.0 [facility]neNqltjqfDXSASMRSPN6420-88-58 04:37:00 Test Item Value Reference Range Interpretation Comments MCV (test code = MCV) 78.1 80.0-94.0 [facility]neBqsfhklGTSVSNQNXR0254-11-91 04:37:00 Test Item Value Reference Range Interpretation Comments Platelet (test code = Platelet) 400 133-450 [facility]neSghvpicSKMMAJLXPD9177-01-23 04:37:00 Test Item Value Reference Range Interpretation Comments MCHC (test code = MCHC) 32.5 32.0-36.0 [facility] CleburneHbobojcADGTMEAQXH8770-95-38 04:37:00 Test Item Value Reference Range Interpretation Comments MPV (test code = MPV) 8.2 7.4-10.4 [facility]neIkibvqoNBWMBZGDSN4308-75-55 04:37:00 Test Item Value Reference Range Interpretation Comments RDW (test code = RDW) 17.8 11.5-14.5 [facility]neOgkherjKUWVRFUNMY2755-88-24 04:37:00 Test Item Value Reference Range Interpretation Comments Microcyte (test code = 1+ *ABN*(02/27/18 Microcyte) 10:37 PM) [facility]neHfctrfyVUZWQNGGZD0841-79-17 04:37:00 Test Item Value Reference Range Interpretation Comments Eosinophils (test code = 4.0 See_Comment [A utomated message] The Eosinophils) system which ge nerated this result tra nsmitted reference range : <=4.0. The reference r ondina was not used to int erpret this result as normal/abnormal . [facility]neEntvrqiBVWMJEHERG9029-26-30 04:37:00 Test Item Value Reference Range Interpretation Comments Neutrophils # (test code = Neutrophils 4.8 1.5-8.1 #) [facility]neUynldbfPIQJATPTRY3128-10-07 04:37:00 Test Item Value Reference Range Interpretation Comments Basophils (test code = 1.2 See_Comment [Aut omated message] The Basophils) system which ge nerated this result tra nsmitted reference range : <=1.0. The reference r ondina was not used to int erpret this result as normal/abnormal . [facility]neImqmgygWGTLRBVYMN6010-81-88 04:37:00 Test Item Value Reference Range Interpretation Comments Lymphocytes # (test code = Lymphocytes 1.8 1.0-5.5 #) [facility] Cle[facility]neIcuhowyHUOSGPBZDC3214-94-20 04:37:00 Test Item Value Reference Range Interpretation Comments Monocytes # (test code 0.7 See_Comment [Aut omated message] The = Monocytes #) system which generated this result tra nsmitted reference range : <=0.8. The reference r ondina was not used to int erpret this result as normal/abnormal . [facility] Cle[facility]neWeyigizODVMJHDFZC7561-30-00 04:37:00 Test Item Value Reference Range Interpretation Comments Basophils # (test code 0.1 See_Comment [Aut omated message] The = Basophils #) system which generated this result tra nsmitted reference range : <=0.2. The reference r ondina was not used to int erpret this result as normal/abnormal . [facility] CleburneHqujjuhYXIPUTGRTX8779-92-57 04:37:00 Test Item Value Reference Range Interpretation Comments Eosinophils # (test code 0.3 See_Comment [A utomated message] The = Eosinophils #) system whic h generated this result tra nsmitted reference range : <=0.5. The reference r ondina was not used to int erpret this result as normal/abnormal . [facility] Cle[facility]neWozxgtyPDUGAMGGGC3827-81-84 04:37:00 Test Item Value Reference Range Interpretation Comments Lymphocytes (test code = Lymphocytes) 23.7 20.0-40.0 [facility] CleburneNfhqrhfHYCNRFMEQJ6506-29-72 04:37:00 Test Item Value Reference Range Interpretation Comments Monocytes (test code = Monocytes) 8.8 2.0-12.0 [facility] CleburneJzqcmzzABOWHIIAYE9283-80-56 04:37:00 Test Item Value Reference Range Interpretation Comments Segs (test code = Segs) 62.3 45.0-75.0 [facility] AND [id number] 04:37:00 Test Item Value Reference Range Interpretation Comments UA Gran Cast (test code = UA Gran 6-10 /LPF Cast) [facility] AND [id number] 04:37:00 Test Item Value Reference Range Interpretation Comments UA Color (test code = Yellow *NA*(02/27/18 UA Color) 10:37 PM) [facility] AND [id number] 04:37:00 Test Item Value Reference Range Interpretation Comments UA Turbidity (test code Moderate = UA Turbidity) *ABN*(02/27/18 10:37 PM) [facility] AND [id number] 04:37:00 Test Item Value Reference Range Interpretation Comments UA Amorph Atiya (test code = Occasional /HPF UA Amorph Atiya) [facility] AND [id number] 04:37:00 Test Item Value Reference Range Interpretation Comments UA Bacteria (test code = UA Occasional /HPF Bacteria) [facility] AND [id number] 04:37:00 Test Item Value Reference Range Interpretation Comments UA Mucus (test code = UA Mucus) Few /LPF [facility] AND [id number] 04:37:00 Test Item Value Reference Range Interpretation Comments UA RBC (test code = 1 See_Comment [Automa garrett message] The UA RBC) system which ge nerated this result transmit garrett reference range : <=2. The reference range was not used to interpr et this result as cassie l/abnormal. [facility] AND [id number] 04:37:00 Test Item Value Reference Range Interpretation Comments UA Leuk Est (test Negative (02/27/18 10:37 code = UA Leuk Est) PM) [facility] AND [id number] 04:37:00 Test Item Value Reference Range Interpretation Comments UA Nitrite (test code Negative (02/27/18 = UA Nitrite) 10:37 PM) [facility] AND [id number] 04:37:00 Test Item Value Reference Range Interpretation Comments UA WBC (test code = 1 See_Comment [Automa garrett message] The UA WBC) system which ge nerated this result transmit garrett reference range : <=5. The reference range was not used to interpr et this result as cassie l/abnormal. [facility] AND [id number] 04:37:00 Test Item Value Reference Range Interpretation Comments UA Sq Epi (test code = UA Sq Occasional /LPF Epi) [facility] AND [id number] 04:37:00 Test Item Value Reference Range Interpretation Comments UA Protein (test code Negative (02/27/18 = UA Protein) 10:37 PM) [facility] AND [id number] 04:37:00 Test Item Value Reference Range Interpretation Comments UA Spec Grav (test code = UA Spec 1.009 1 Grav) [facility] AND [id number] 04:37:00 Test Item Value Reference Range Interpretation Comments UA pH (test code = UA pH) 6.0 1 5.0-8.0 [facility] AND [id number] 04:37:00 Test Item Value Reference Range Interpretation Comments UA Ketones (test code Negative *NA*(02/27/18 = UA Ketones) 10:37 PM) [facility] AND [id number] 04:37:00 Test Item Value Reference Range Interpretation Comments UA Urobilinogen (test code = UA <=1.0 mg/dL 0.1-1.0 Urobilinogen) [facility] [id number] 04:37:00 Test Item Value Reference Range Interpretation Comments UA Blood (test code = Negative (02/27/18 10:37 [facility]A Blood) PM) [facility] [id number] 04:37:00 Test Item Value Reference Range Interpretation Comments UA Glucose (test code Negative *NA*(02/27/18 = UA Glucose) 10:37 PM) [facility] [id number] 04:37:00 Test Item Value Reference Range Interpretation Comments UA Bili (test code = Negative *NA*(02/27/18 UA Bili) 10:37 PM[facility] - [id number] 04:37:00 Test Item Value Reference Range Interpretation Comments Influ A (test code = Negative (02/27/18 10:37 Influ A) PM) [facility] - [id number] 04:37:00 Test Item Value Reference Range Interpretation Comments Influ B (test code = Negative (02/27/18 10:37 Influ B) PM) [facility]annCARDIAC [id number] 04:37:00 Test Item Value Reference Range Interpretation Comments Troponin-I (test code = Troponin-I) no gt <=0.40 [facility]annCARD[facility]AC [id number] 04:37:00 Test Item Value Reference Range Interpretation Comments proBNP (test code = proBNP) 2678 <=125 [facility] DallasLhymvbeGJFKZBPTINBX4915-51-02 04:37:00 Test Item Value Reference Range Interpretation Comments CO2 (test code = CO2) 25 24-32 [facility] QgpoyfwHRZVTTUOGGLK3541-27-12 04:37:00 Test Item Value Reference Range Interpretation Comments Calcium Lvl (test code = Calcium Lvl) 8.1 8.5-10.5 [facility] IvecnuoSMWJHNJOEJLX4539-73-46 04:37:00 Test Item Value Reference Range Interpretation Comments Potassium Lvl (test code = Potassium 3.6 3.5-5.1 Lvl) [facility] DallasZpbdczsYRBIAMEPXNQP9312-01-36 04:37:00 Test Item Value Reference Range Interpretation Comments Chloride Lvl (test code = Chloride Lvl) 108 95-109 [facility] [place]XbuyssvBQRKIGEBJPJP9807-66-50 04:37:00 Test Item Value Reference Range Interpretation Comments Sodium Lvl (test code = Sodium Lvl) 142 135-145 [facility]KufrmgiDWYHGXRFJXVJ9732-77-85 04:37:00 Test Item Value Reference Range Interpretation Comments Creatinine Lvl (test code = Creatinine 0.80 0.50-1.40 Lvl) [facility] HospitalRmqsjdvCYJCJQYYDATX0814-48-49 04:37:00 Test Item Value Reference Range Interpretation Comments BUN (test code = BUN) 8 7-22 [facility] HospitalCbxyddpTEYUJJCTBARH5156-25-80 04:37:00 Test Item Value Reference Range Interpretation Comments Glucose Lvl (test code = Glucose Lvl) 88 70-99 [facility] HospitalSxsroogHLXAONCMBFAG2637-21-95 04:37:00 Test Item Value Reference Range Interpretation Comments eGFR (test code = eGFR) 97 [facility] HospitalOvnrsviJBBGRIYJILFF2502-97-09 04:37:00 Test Item Value Reference Range Interpretation Comments AGAP (test code = AGAP) 12.6 10.0-20.0 [facility]ZzjcpvhTDTRDQIEME0959-53-58 04:37:00 Test Item Value Reference Range Interpretation Comments WBC (test code = WBC) 7.8 3.7-10.4 [facility]neHdgvpolGQGYBARVPJ1485-35-72 04:37:00 Test Item Value Reference Range Interpretation Comments RBC (test code = RBC) 3.53 4.70-6.10 [facility]neBfnfzxaEJMEOIIAGQ0175-09-88 04:37:00 Test Item Value Reference Range Interpretation Comments Hgb (test code = Hgb) 9.0 14.0-18.0 [facility]neBcpazkxJELYZZHOEC4735-90-17 04:37:00 Test Item Value Reference Range Interpretation Comments MCH (test code = MCH) 25.4 pg 27.0-31.0 [facility]neVxwwvudETJFTTPDME5732-65-51 04:37:00 Test Item Value Reference Range Interpretation Comments Hct (test code = Hct) 27.5 42.0-54.0 [facility] Cle[facility]neOgdisylERCVCJMDXN6903-81-98 04:37:00 Test Item Value Reference Range Interpretation Comments MCV (test code = MCV) 78.1 80.0-94.0 [facility]neZyxzojyXISUOIOEIH7306-62-66 04:37:00 Test Item Value Reference Range Interpretation Comments Platelet (test code = Platelet) 400 133-450 [facility]neYjcwokaCIJEZZALYF7075-61-35 04:37:00 Test Item Value Reference Range Interpretation Comments MCHC (test code = MCHC) 32.5 32.0-36.0 [facility]neAtwwiepCPODROAQHM6365-67-15 04:37:00 Test Item Value Reference Range Interpretation Comments MPV (test code = MPV) 8.2 7.4-10.4 [facility]neSszwjqjRMECRHBSKR3717-20-49 04:37:00 Test Item Value Reference Range Interpretation Comments RDW (test code = RDW) 17.8 11.5-14.5 [facility]neYomfxjrXCGOKKKTFL3857-45-50 04:37:00 Test Item Value Reference Range Interpretation Comments Microcyte (test code = 1+ *ABN*(02/27/18 Microcyte) 10:37 PM) [facility]neKwzkkgfTMPBGMQOCT2121-58-64 04:37:00 Test Item Value Reference Range Interpretation Comments Eosinophils (test code = Eosinophils) 4.0 <=4.0 [facility] Cle[facility]neSkqcsixJVHPEJZYPS5894-82-54 04:37:00 Test Item Value Reference Range Interpretation Comments Neutrophils # (test code = Neutrophils 4.8 1.5-8.1 #) [facility]neCxfhjgbUWRNXEBGQZ9947-14-81 04:37:00 Test Item Value Reference Range Interpretation Comments Basophils (test code = Basophils) 1.2 <=1.0 [facility]neLiiljwoXGLRSPBHAS1028-37-90 04:37:00 Test Item Value Reference Range Interpretation Comments Lymphocytes # (test code = Lymphocytes 1.8 1.0-5.5 #) [facility]neJcvutisBVNZUXMXSD2257-05-12 04:37:00 Test Item Value Reference Range Interpretation Comments Monocytes # (test code = Monocytes #) 0.7 <=0.8 [place] 085098-12-27 04:37:00 Test Item Value Reference Range Interpretation Comments Basophils # (test code = Basophils #) 0.1 <=0.2 [facility] Cle[facility]neTystptiGHWVXVNTAM5222-07-39 04:37:00 Test Item Value Reference Range Interpretation Comments Eosinophils # (test code = Eosinophils 0.3 <=0.5 #) [facility] CleburnePljwwalDDCAEAKKUO9686-77-65 04:37:00 Test Item Value Reference Range Interpretation Comments Lymphocytes (test code = Lymphocytes) 23.7 20.0-40.0 [address]12-27 04:37:00 Test Item Value Reference Range Interpretation Comments Monocytes (test code = Monocytes) 8.8 2.0-12.0 [facility] Cle[facility]neRnaajsxDCVTJVRMGF5826-82-05 04:37:00 Test Item Value Reference Range Interpretation Comments Segs (test code = Segs) 62.3 45.0-75.0 [facility] AND [id number] 04:37:00 Test Item Value Reference Range Interpretation Comments UA Gran Cast (test code = UA Gran 6-10 /LPF Cast) [facility] AND [id number] 04:37:00 Test Item Value Reference Range Interpretation Comments UA Color (test code = Yellow *NA*(02/27/18 UA Color) 10:37 PM) [facility] AND [id number] 04:37:00 Test Item Value Reference Range Interpretation Comments UA Turbidity (test code Moderate = UA Turbidity) *ABN*(02/27/18 10:37 PM) [facility] AND [id number] 04:37:00 Test Item Value Reference Range Interpretation Comments UA Amorph Atiya (test code = Occasional /HPF UA Amorph Atiya) [facility] AND [id number] 04:37:00 Test Item Value Reference Range Interpretation Comments UA Bacteria (test code = UA Occasional /HPF Bacteria) [facility] AND [id number] 04:37:00 Test Item Value Reference Range Interpretation Comments UA Mucus (test code = UA Mucus) Few /LPF [facility] AND [id number] 04:37:00 Test Item Value Reference Range Interpretation Comments UA RBC (test code = UA RBC) 1 <=2 [facility] AND [id number] 04:37:00 Test Item Value Reference Range Interpretation Comments UA Leuk Est (test Negative (02/27/18 10:37 code = UA Leuk Est) PM) [facility] AND [id number] 04:37:00 Test Item Value Reference Range Interpretation Comments UA Nitrite (test code Negative (02/27/18 = UA Nitrite) 10:37 PM) [facility] AND [id number] 04:37:00 Test Item Value Reference Range Interpretation Comments UA WBC (test code = UA WBC) 1 <=5 [facility] AND [id number] 04:37:00 Test Item Value Reference Range Interpretation Comments UA Sq Epi (test code = UA Sq Occasional /LPF Epi) [facility] [id number] 04:37:00 Test Item Value Reference Range Interpretation Comments UA Protein (test code Negative (02/27/18 = UA Protein) 10:37 PM) [facility] [id number] 04:37:00 Test Item Value Reference Range Interpretation Comments UA Spec Grav (test code = UA Spec 1.009 1 Grav) [facility] [id number] 04:37:00 Test Item Value Reference Range Interpretation Comments UA pH (test code = UA pH) 6.0 1 5.0-8.0 [facility] [id number] 04:37:00 Test Item Value Reference Range Interpretation Comments UA Ketones (test code Negative *NA*(02/27/18 = UA Ketones) 10:37 PM) [facility] [id number] 04:37:00 Test Item Value Reference Range Interpretation Comments UA Urobilinogen (test code = UA <=1.0 mg/dL 0.1-1.0 Urobilinogen) [facility] [id number] 04:37:00 Test Item Value Reference Range Interpretation Comments UA Blood (test code = Negative (02/27/18 10:37 UA Blood) PM) [facility] [id number] 04:37:00 Test Item Value Reference Range Interpretation Comments UA Glucose (test code Negative *NA*(02/27/18 = UA Glucose) 10:37 PM) [facility] [id number] 04:37:00 Test Item Value Reference Range Interpretation Comments UA Bili (test code = Negative *NA*(02/27/18 UA Bili) 10:37 PM) [facility] - [id number] 04:37:00 Test Item Value Reference Range Interpretation Comments Influ A (test code = Negative (02/27/18 10:37 Influ A) PM) [facility] [id number] 04:37:00 Test Item Value Reference Range Interpretation Comments Influ B (test code = Negative (02/27/18 10:37 Influ B) PM) [facility] [id number] 04:37:00 Test Item Value Reference Range Interpretation Comments Troponin-I (test code no gt See_Comment [Auto mated message] The = Troponin-I) system which g enerated this result transmit garrett reference range : <=0.40. The reference r ondina was not used to interpr et this result as cassie l/abnormal. [facility] DallasOscarCARThe Luxe NomadAC [id number] 04:37:00 Test Item Value Reference Range Interpretation Comments proBNP (test code = 2678 See_Comment [Automa garrett message] The proBNP) system which ge nerated this result tra nsmitted reference range : <=125. The reference r ondina was not used to int erpret this result as cassie l/abnormal. [facility] DallasPmizrjwDFZNZZHUEHMX6362-00-57 04:37:00 Test Item Value Reference Range Interpretation Comments CO2 (test code = CO2) 25 24-32 [facility] DallasRkmungcUGOGHTGLAEFZ8411-87-70 04:37:00 Test Item Value Reference Range Interpretation Comments Calcium Lvl (test code = Calcium Lvl) 8.1 8.5-10.5 [facility] DallasQyvtgzfRRPWKOOGQJPS1389-18-73 04:37:00 Test Item Value Reference Range Interpretation Comments Potassium Lvl (test code = Potassium 3.6 3.5-5.1 Lvl) [facility] DallasGumtvpcWQLCUYOWZUJV6605-83-06 04:37:00 Test Item Value Reference Range Interpretation Comments Chloride Lvl (test code = Chloride Lvl) 108 95-109 [facility] DallasWxhmdpnPKAVZDLIZJUT6385-56-96 04:37:00 Test Item Value Reference Range Interpretation Comments Sodium Lvl (test code = Sodium Lvl) 142 135-145 [facility] DallasCjykcvgNUKHGRRBRRAW5349-89-94 04:37:00 Test Item Value Reference Range Interpretation Comments Creatinine Lvl (test code = Creatinine 0.80 0.50-1.40 Lvl) [facility] DallasJfazgsaWUEMLPZDEBIJ8676-99-59 04:37:00 Test Item Value Reference Range Interpretation Comments BUN (test code = BUN) 8 7-22 [facility]ClkbeytSTIEEWISUMTG9210-06-63 04:37:00 Test Item Value Reference Range Interpretation Comments Glucose Lvl (test code = Glucose Lvl) 88 70-99 [facility] HospitalZskhduiHWQIAHWUWHCY8505-17-18 04:37:00 Test Item Value Reference Range Interpretation Comments eGFR (test code = eGFR) 97 [facility] DallasPcerbxyAAKVSKRRKFSH3339-04-77 04:37:00 Test Item Value Reference Range Interpretation Comments AGAP (test code = AGAP) 12.6 10.0-20.0 [facility] HospitalQuaewjhPOQSUSLAFK3256-17-43 04:37:00 Test Item Value Reference Range Interpretation Comments WBC (test code = WBC) 7.8 3.7-10.4 [facility]neZxqcnluIYMPTUALIR1527-64-66 04:37:00 Test Item Value Reference Range Interpretation Comments RBC (test code = RBC) 3.53 4.70-6.10 [facility] Cle[facility]neOiidslrUMUORZOTMK1490-55-77 04:37:00 Test Item Value Reference Range Interpretation Comments Hgb (test code = Hgb) 9.0 14.0-18.0 [facility] CleburneIhybnqnACEMDDPGMY2577-36-34 04:37:00 Test Item Value Reference Range Interpretation Comments MCH (test code = MCH) 25.4 pg 27.0-31.0 [facility] CleburneJtcbvwwJQHJLYMUQX5819-57-77 04:37:00 Test Item Value Reference Range Interpretation Comments Hct (test code = Hct) 27.5 42.0-54.0 [facility] CleburneUukatcmRTLCTOGNYN1564-82-64 04:37:00 Test Item Value Reference Range Interpretation Comments MCV (test code = MCV) 78.1 80.0-94.0 [facility]neTwpnxgvZOEDBPFJSC4681-67-79 04:37:00 Test Item Value Reference Range Interpretation Comments Platelet (test code = Platelet) 400 133-450 [facility]neTwkmvmsPGUKQJDGGH3695-73-65 04:37:00 Test Item Value Reference Range Interpretation Comments MCHC (test code = MCHC) 32.5 32.0-36.0 [facility] CleburneUrnumneQUBVASSKNE8374-91-64 04:37:00 Test Item Value Reference Range Interpretation Comments MPV (test code = MPV) 8.2 7.4-10.4 [facility] CleburneAknuvkaHGUTPLLDTE5098-24-86 04:37:00 Test Item Value Reference Range Interpretation Comments RDW (test code = RDW) 17.8 11.5-14.5 [facility] CleburneBuoksfwFPFROYGVXM6996-01-10 04:37:00 Test Item Value Reference Range Interpretation Comments Microcyte (test code = 1+ *ABN*(02/27/18 Microcyte) 10:37 PM) [facility] Cle[facility]neKhloxwdZDEDOUOMVX3065-40-31 04:37:00 Test Item Value Reference Range Interpretation Comments Eosinophils (test code = 4.0 See_Comment [A utomated message] The Eosinophils) system which ge nerated this result tra nsmitted reference range : <=4.0. The reference r ondina was not used to int erpret this result as normal/abnormal . [facility]neIrwrqjiFDASOGLDFR8390-08-79 04:37:00 Test Item Value Reference Range Interpretation Comments Neutrophils # (test code = Neutrophils 4.8 1.5-8.1 #) [facility] Cle[facility]neWvvuqtzBTFINYEJQF2916-02-78 04:37:00 Test Item Value Reference Range Interpretation Comments Basophils (test code = 1.2 See_Comment [Aut omated message] The Basophils) system which ge nerated this result tra nsmitted reference range : <=1.0. The reference r ondina was not used to int erpret this result as normal/abnormal . [facility]neHhsxymaFETMOSKVYZ9414-30-36 04:37:00 Test Item Value Reference Range Interpretation Comments Lymphocytes # (test code = Lymphocytes 1.8 1.0-5.5 #) [facility] CleburneRzlcoouXYDWFQSWSX5542-70-58 04:37:00 Test Item Value Reference Range Interpretation Comments Monocytes # (test code 0.7 See_Comment [Aut omated message] The = Monocytes #) system which generated this result tra nsmitted reference range : <=0.8. The reference r ondina was not used to int erpret this result as normal/abnormal . [facility] Cle[facility]neZwrpczwSXBOPTBRBP2281-14-95 04:37:00 Test Item Value Reference Range Interpretation Comments Basophils # (test code 0.1 See_Comment [Aut omated message] The = Basophils #) system which generated this result tra nsmitted reference range : <=0.2. The reference r ondina was not used to int erpret this result as normal/abnormal . [facility] Cle[facility]neXeukstnGVZPWJRXUP2048-10-11 04:37:00 Test Item Value Reference Range Interpretation Comments Eosinophils # (test code 0.3 See_Comment [A utomated message] The = Eosinophils #) system whic h generated this result tra nsmitted reference range : <=0.5. The reference r ondina was not used to int erpret this result as normal/abnormal . [facility] Cle[facility]neHefcczmCDWPZRWCPI7672-04-43 04:37:00 Test Item Value Reference Range Interpretation Comments Lymphocytes (test code = Lymphocytes) 23.7 20.0-40.0 [facility] CleburneTspldqvKITBUFSYWA9795-30-50 04:37:00 Test Item Value Reference Range Interpretation Comments Monocytes (test code = Monocytes) 8.8 2.0-12.0 [facility] CleburneBlwbwexHXLMOEPGQQ7308-03-72 04:37:00 Test Item Value Reference Range Interpretation Comments Segs (test code = Segs) 62.3 45.0-75.0 [facility] AND [id number] 04:37:00 Test Item Value Reference Range Interpretation Comments UA Gran Cast (test code = UA Gran 6-10 /LPF Cast) [facility] AND [id number] 04:37:00 Test Item Value Reference Range Interpretation Comments UA Color (test code = Yellow *NA*(02/27/18 UA Color) 10:37 PM) [facility] AND [id number] 04:37:00 Test Item Value Reference Range Interpretation Comments UA Turbidity (test code Moderate = UA Turbidity) *ABN*(02/27/18 10:37 PM) [facility] AND [id number] 04:37:00 Test Item Value Reference Range Interpretation Comments UA Amorph Atiya (test code = Occasional /HPF UA Amorph Atiya) [facility] AND [id number] 04:37:00 Test Item Value Reference Range Interpretation Comments UA Bacteria (test code = UA Occasional /HPF Bacteria) [facility] AND [id number] 04:37:00 Test Item Value Reference Range Interpretation Comments UA Mucus (test code = UA Mucus) Few /LPF [facility] AND [id number] 04:37:00 Test Item Value Reference Range Interpretation Comments UA RBC (test code = 1 See_Comment [Automa garrett message] The UA RBC) system which ge nerated this result transmit garrett reference range : <=2. The reference range was not used to interpr et this result as cassie l/abnormal. [facility] AND [id number] 04:37:00 Test Item Value Reference Range Interpretation Comments UA Leuk Est (test Negative (02/27/18 10:37 code = UA Leuk Est) PM) [facility] AND [id number] 04:37:00 Test Item Value Reference Range Interpretation Comments UA Nitrite (test code Negative (02/27/18 = UA Nitrite) 10:37 PM) [facility] AND [id number] 04:37:00 Test Item Value Reference Range Interpretation Comments UA WBC (test code = 1 See_Comment [Automa garrett message] The UA WBC) system which ge nerated this result transmit garrett reference range : <=5. The reference range was not used to interpr et this result as cassie l/abnormal. [facility] AND [id number] 04:37:00 Test Item Value Reference Range Interpretation Comments UA Sq Epi (test code = UA Sq Occasional /LPF Epi) [facility] AND [id number] 04:37:00 Test Item Value Reference Range Interpretation Comments UA Protein (test code Negative (02/27/18 = UA Protein) 10:37 PM) [facility] AND [id number] 04:37:00 Test Item Value Reference Range Interpretation Comments UA Spec Grav (test code = UA Spec 1.009 1 Grav) [facility] AND [id number] 04:37:00 Test Item Value Reference Range Interpretation Comments UA pH (test code = UA pH) 6.0 1 5.0-8.0 [facility] AND [id number] 04:37:00 Test Item Value Reference Range Interpretation Comments UA Ketones (test code Negative *NA*(02/27/18 = UA Ketones) 10:37 PM) [facility] AND [id number] 04:37:00 Test Item Value Reference Range Interpretation Comments UA Urobilinogen (test code = UA <=1.0 mg/dL 0.1-1.0 Urobilinogen) [facility] AND [id number] 04:37:00 Test Item Value Reference Range Interpretation Comments UA Blood (test code = Negative (02/27/18 10:37 UA Blood) PM) [facility] AND [id number] 04:37:00 Test Item Value Reference Range Interpretation Comments UA Glucose (test code Negative *NA*(02/27/18 = UA Glucose) 10:37 PM) [facility] AND [id number] 04:37:00 Test Item Value Reference Range Interpretation Comments UA Bili (test code = Negative *NA*(02/27/18 UA Bili) 10:37 PM) [facility] - [id number] 04:37:00 Test Item Value Reference Range Interpretation Comments Influ A (test code = Negative (02/27/18 10:37 Influ A) PM) [facility]annVIRAL - [id number] 04:37:00 Test Item Value Reference Range Interpretation Comments Influ B (test code = Negative (02/27/18 10:37 Influ B) PM) [facility] DallasannCARDIAC OKPQWSR6599-28-54 04:37:00 Test Item Value Reference Range Interpretation Comments Troponin-I (test code = Troponin-I) no gt <=0.40 [facility] DallasannCARDIAC NVCCHUE9906-26-43 04:37:00 Test Item Value Reference Range Interpretation Comments proBNP (test code = proBNP) 2678 <=125 [facility]JlslvicDHTJSBMSMERB2718-62-14 04:37:00 Test Item Value Reference Range Interpretation Comments CO2 (test code = CO2) 25 24-32 [facility] CampusSajlhdbHOKRSMHYBLJC9581-86-94 04:37:00 Test Item Value Reference Range Interpretation Comments Calcium Lvl (test code = Calcium Lvl) 8.1 8.5-10.5 [facility] CampusPwwganyUKAGEZAESQTN1840-09-23 04:37:00 Test Item Value Reference Range Interpretation Comments Potassium Lvl (test code = Potassium 3.6 3.5-5.1 Lvl) [facility] DallasQqfbagpFZSGGESITZCP3298-61-32 04:37:00 Test Item Value Reference Range Interpretation Comments Chloride Lvl (test code = Chloride Lvl) 108 95-109 [facility] CampusFmrepqlLJLCNKOZCIAT0943-81-58 04:37:00 Test Item Value Reference Range Interpretation Comments Sodium Lvl (test code = Sodium Lvl) 142 135-145 [facility]OufphggIIORNSVJFNAN3895-86-67 04:37:00 Test Item Value Reference Range Interpretation Comments Creatinine Lvl (test code = Creatinine 0.80 0.50-1.40 Lvl) [facility] CampusSoplpqxIWYECLGYRGND1863-92-20 04:37:00 Test Item Value Reference Range Interpretation Comments BUN (test code = BUN) 8 7-22 [facility]HfjnsvcRMDMWHJJLVDY9138-52-17 04:37:00 Test Item Value Reference Range Interpretation Comments Glucose Lvl (test code = Glucose Lvl) 88 70-99 [facility] HospitalNeekbbuTCZDOOFLNNCS5557-67-21 04:37:00 Test Item Value Reference Range Interpretation Comments eGFR (test code = eGFR) 97 [facility] HospitalEipnoetVAEVCZNZSVFZ3268-94-86 04:37:00 Test Item Value Reference Range Interpretation Comments AGAP (test code = AGAP) 12.6 10.0-20.0 [facility]neQqiezaeMJUFEFODTT3962-51-09 04:37:00 Test Item Value Reference Range Interpretation Comments WBC (test code = WBC) 7.8 3.7-10.4 [facility]neYozzdhwPZOQKLTIUN2736-69-48 04:37:00 Test Item Value Reference Range Interpretation Comments RBC (test code = RBC) 3.53 4.70-6.10 [facility] Cle[facility]neDamfdnzAUNWGGNQAC7121-50-49 04:37:00 Test Item Value Reference Range Interpretation Comments Hgb (test code = Hgb) 9.0 14.0-18.0 [facility]nePgzhtotMKLZKWIUTR5687-94-07 04:37:00 Test Item Value Reference Range Interpretation Comments MCH (test code = MCH) 25.4 pg 27.0-31.0 [facility] Cle[facility]neQkemkbsLWDVCXFBUJ6318-54-29 04:37:00 Test Item Value Reference Range Interpretation Comments Hct (test code = Hct) 27.5 42.0-54.0 [facility] Cle[facility]neCmrgrmbXBPKIPKXCB9940-68-68 04:37:00 Test Item Value Reference Range Interpretation Comments MCV (test code = MCV) 78.1 80.0-94.0 [facility]neSdomyzpFUHKYYMHCT7719-01-85 04:37:00 Test Item Value Reference Range Interpretation Comments Platelet (test code = Platelet) 400 133-450 [facility] Cle[facility]neCubnznlQBTRHLVZCQ9180-25-73 04:37:00 Test Item Value Reference Range Interpretation Comments MCHC (test code = MCHC) 32.5 32.0-36.0 [facility] CleburneZjvvrsdPVPJXRYRGR5960-63-68 04:37:00 Test Item Value Reference Range Interpretation Comments MPV (test code = MPV) 8.2 7.4-10.4 [facility] Cle[facility]neUpfrzctPSQMLQMUOK4161-31-47 04:37:00 Test Item Value Reference Range Interpretation Comments RDW (test code = RDW) 17.8 11.5-14.5 [facility]neKrhqweeEFGJQULNAC9893-46-66 04:37:00 Test Item Value Reference Range Interpretation Comments Microcyte (test code = 1+ *ABN*(02/27/18 Microcyte) 10:37 PM) [facility]neBedbrxaGYBWBUSFSH8690-41-17 04:37:00 Test Item Value Reference Range Interpretation Comments Eosinophils (test code = Eosinophils) 4.0 <=4.0 [facility] Cle[facility]neMhhcpexEIOPZTWUER3662-70-34 04:37:00 Test Item Value Reference Range Interpretation Comments Neutrophils # (test code = Neutrophils 4.8 1.5-8.1 #) [facility] CleburneZriqaavUCPDHHAMUQ9124-19-37 04:37:00 Test Item Value Reference Range Interpretation Comments Basophils (test code = Basophils) 1.2 <=1.0 [facility] [place]hygbhoBXXGIOTZTN8964-66-13 04:37:00 Test Item Value Reference Range Interpretation Comments Lymphocytes # (test code = Lymphocytes 1.8 1.0-5.5 #) [facility] [place]neRkwbcufBQWXUYQKIV1220-27-03 04:37:00 Test Item Value Reference Range Interpretation Comments Monocytes # (test code = Monocytes #) 0.7 <=0.8 [facility] [place]neRyaikavUFXDBPJDSL2210-33-79 04:37:00 Test Item Value Reference Range Interpretation Comments Basophils # (test code = Basophils #) 0.1 <=0.2 [facility] [place]neLueqlwdXXNKTPZXPQ7612-56-99 04:37:00 Test Item Value Reference Range Interpretation Comments Eosinophils # (test code = Eosinophils 0.3 <=0.5 #) [facility] [place]neBfgtixkGJQYXTXHNS2740-99-66 04:37:00 Test Item Value Reference Range Interpretation Comments Lymphocytes (test code = Lymphocytes) 23.7 20.0-40.0 [facility] [place]neOlidkfvBUUAPLWVXE3484-17-01 04:37:00 Test Item Value Reference Range Interpretation Comments Monocytes (test code = Monocytes) 8.8 2.0-12.0 [facility] [place]neHqagrvqVYLESACCNI9049-05-80 04:37:00 Test Item Value Reference Range Interpretation Comments Segs (test code = Segs) 62.3 45.0-75.0 [facility]2018-12-27 04:37:00 Test Item Value Reference Range Interpretation Comments UA Gran Cast (test code = UA Gran 6-10 /LPF Cast) [facility] AND [id number] 04:37:00 Test Item Value Reference Range Interpretation Comments UA Color (test code = Yellow *NA*(02/27/18 UA Color) 10:37 PM) [facility] [id number] 04:37:00 Test Item Value Reference Range Interpretation Comments UA Turbidity (test code Moderate = UA Turbidity) *ABN*(02/27/18 10:37 PM) [facility] [id number] 04:37:00 Test Item Value Reference Range Interpretation Comments UA Amorph Atiya (test code = Occasional /HPF UA Amorph Atiya) [facility] AND [id number] 04:37:00 Test Item Value Reference Range Interpretation Comments UA Bacteria (test code = UA Occasional /HPF Bacteria) [facility] [id number] 04:37:00 Test Item Value Reference Range Interpretation Comments UA Mucus (test code = UA Mucus) Few /LPF [facility] AND [id number] 04:37:00 Test Item Value Reference Range Interpretation Comments UA RBC (test code = UA RBC) [address] [facility] [id number] 04:37:00 Test Item Value Reference Range Interpretation Comments UA Leuk Est (test Negative (02/27/18 10:37 code = UA Leuk Est) PM) [facility] [id number] 04:37:00 Test Item Value Reference Range Interpretation Comments UA Nitrite (test code Negative (02/27/18 = UA Nitrite) 10:37 PM) [facility] [id number] 04:37:00 Test Item Value Reference Range Interpretation Comments UA WBC (test code = UA WBC) [address] [facility] [id number] 04:37:00 Test Item Value Reference Range Interpretation Comments UA Sq Epi (test code = UA Sq Occasional /LPF Epi) [facility] [id number] 04:37:00 Test Item Value Reference Range Interpretation Comments UA Protein (test code Negative (02/27/18 = UA Protein) 10:37 PM) [facility] [id number] 04:37:00 Test Item Value Reference Range Interpretation Comments UA Spec Grav (test code = UA Spec 1.009 [address]) [facility] AND [id number] 04:37:00 Test Item Value Reference Range Interpretation Comments UA pH (test code = UA pH) 6.0 1 5.0-8.0 [facility] AND [id number] 04:37:00 Test Item Value Reference Range Interpretation Comments UA Ketones (test code Negative *NA*(02/27/18 = UA Ketones) 10:37 PM) [facility] AND [id number] 04:37:00 Test Item Value Reference Range Interpretation Comments UA Urobilinogen (test code = UA <=1.0 mg/dL 0.1-1.0 Urobilinogen) [facility] AND [id number] 04:37:00 Test Item Value Reference Range Interpretation Comments UA Blood (test code = Negative (02/27/18 10:37 UA Blood) PM) [facility] AND [id number] 04:37:00 Test Item Value Reference Range Interpretation Comments UA Glucose (test code Negative *NA*(02/27/18 = UA Glucose) 10:37 PM) [facility] AND [id number] 04:37:00 Test Item Value Reference Range Interpretation Comments UA Bili (test code = Negative *NA*(02/27/18 UA Bili) 10:37 PM) [facility] [id number] 04:37:00 Test Item Value Reference Range Interpretation Comments Influ A (test code = Negative (02/27/18 10:37 Influ A) PM) [facility] - [id number] 04:37:00 Test Item Value Reference Range Interpretation Comments Influ B (test code = Negative (02/27/18 10:37 Influ B) PM) [facility] HospitalQmvadnjDBYGPNVBNJLO5563-81-21 12:27:00 Test Item Value Reference Range Interpretation Comments AGAP (test code = AGAP) 12.7 10.0-20.0 [facility] HospitalItygeegBGYOSMZDSZMD9910-80-03 12:27:00 Test Item Value Reference Range Interpretation Comments Glucose Lvl (test code = Glucose Lvl) 79 70-99 [facility]YphhaupVWJAMTANNIZO9317-20-54 12:27:00 Test Item Value Reference Range Interpretation Comments Potassium Lvl (test code = Potassium 3.7 3.5-5.1 Lvl) [facility] HospitalQpbeyvxIQRCKRWLQPEU0259-71-64 12:27:00 Test Item Value Reference Range Interpretation Comments Sodium Lvl (test code = Sodium Lvl) 144 135-145 [facility] HospitalHtaympzBDSAHWPRHLNK1401-28-03 12:27:00 Test Item Value Reference Range Interpretation Comments Chloride Lvl (test code = Chloride Lvl) 109 95-109 [facility] HospitalSxnhkocEDFYMJTJVQLI6881-84-07 12:27:00 Test Item Value Reference Range Interpretation Comments eGFR (test code = eGFR) 104 [facility] HospitalMerhsahTGWPQDHHYZTB4950-00-36 12:27:00 Test Item Value Reference Range Interpretation Comments Creatinine Lvl (test code = Creatinine 0.68 0.50-1.40 Lvl) [facility] HospitalDkldgxdRZTEIFNVHIGN8159-09-11 12:27:00 Test Item Value Reference Range Interpretation Comments Calcium Lvl (test code = Calcium Lvl) 8.2 8.5-10.5 [facility] HospitalTclnitnEPACFAFMPGIF1284-02-46 12:27:00 Test Item Value Reference Range Interpretation Comments CO2 (test code = CO2) 26 24-32 [facility] HospitalTvamnbgFPGNVKPSYIPE9861-54-23 12:27:00 Test Item Value Reference Range Interpretation Comments BUN (test code = BUN) 9 7-22 [facility] [place]neJfisyfuPUHBDXIFTX9279-41-93 12:27:00 Test Item Value Reference Range Interpretation Comments MPV (test code = MPV) 8.2 7.4-10.4 [facility] Cle[place]neJqraqqrWOQCHHLSIK1791-61-39 12:27:00 Test Item Value Reference Range Interpretation Comments RDW (test code = RDW) 17.6 11.5-14.5 [facility] [place]neOhrpglyOXMFCVRNAR3804-54-27 12:27:00 Test Item Value Reference Range Interpretation Comments Platelet (test code = Platelet) 336 133-450 [facility] Cle[place]neZvmguihEVUCUURASO1985-95-95 12:27:00 Test Item Value Reference Range Interpretation Comments MCV (test code = MCV) 80.4 80.0-94.0 [facility] Cle[place]neFavbhueECWUKJNDUA8881-31-36 12:27:00 Test Item Value Reference Range Interpretation Comments MCH (test code = MCH) 25.7 pg 27.0-31.0 [facility] [place]neCuvzbffUZBEJPDTCO0257-29-51 12:27:00 Test Item Value Reference Range Interpretation Comments MCHC (test code = MCHC) 32.0 32.0-36.0 [facility] Cle[place]neFxoxkqmJIBXKUGQGK7798-22-37 12:27:00 Test Item Value Reference Range Interpretation Comments RBC (test code = RBC) 3.65 4.70-6.10 [facility] [place]neCihpyjmSDETYXHXPX1502-86-35 12:27:00 Test Item Value Reference Range Interpretation Comments WBC (test code = WBC) 6.8 3.7-10.4 [facility] [place]neIocytfxOILBRKYLTB3920-84-64 12:27:00 Test Item Value Reference Range Interpretation Comments Hgb (test code = Hgb) 9.4 14.0-18.0 [facility] Cle[place]neGpgfzarZPJECZNYLU7387-07-84 12:27:00 Test Item Value Reference Range Interpretation Comments Hct (test code = Hct) 29.3 42.0-54.0 [facility] Cle[place]neUclmojgVYZPMIYHQB9674-34-59 12:27:00 Test Item Value Reference Range Interpretation Comments Lymphocytes # (test code = Lymphocytes 1.4 1.0-5.5 #) [facility] [place]neUkfwacwNLIWJYILHF3665-40-85 12:27:00 Test Item Value Reference Range Interpretation Comments Monocytes # (test code 0.6 See_Comment [Aut omated message] The = Monocytes #) system which generated this result tra nsmitted reference range : <=0.8. The reference r ondina was not used to int erpret this result as normal/abnormal . [facility] [place]neUmowhufEINOGJGYYL9327-89-33 12:27:00 Test Item Value Reference Range Interpretation Comments Basophils # (test code 0.1 See_Comment [Aut omated message] The = Basophils #) system which generated this result tra nsmitted reference range : <=0.2. The reference r ondina was not used to int erpret this result as normal/abnormal . [facility] [place]neZewfrqsGZWQCPXLBM7681-36-28 12:27:00 Test Item Value Reference Range Interpretation Comments Neutrophils # (test code = Neutrophils 4.5 1.5-8.1 #) [facility] [place]neHrwbuqjCEOQQXYIQU4435-08-97 12:27:00 Test Item Value Reference Range Interpretation Comments Lymphocytes (test code = Lymphocytes) 19.9 20.0-40.0 [facility] [place]neYioiwebOLLBSLRZCA3231-81-09 12:27:00 Test Item Value Reference Range Interpretation Comments Monocytes (test code = Monocytes) 8.8 2.0-12.0 [facility] Cle[place]neNexmhkoSQIFJRMNTH7248-83-80 12:27:00 Test Item Value Reference Range Interpretation Comments Segs (test code = Segs) 66.4 45.0-75.0 [facility] [place]neKcgnaluWDSLCTPHFU4889-30-82 12:27:00 Test Item Value Reference Range Interpretation Comments Eosinophils # (test code 0.3 See_Comment [A utomated message] The = Eosinophils #) system whic h generated this result tra nsmitted reference range : <=0.5. The reference r ondina was not used to int erpret this result as normal/abnormal . [facility] [place]neNvuikrqKDYSMXCCAY7801-23-59 12:27:00 Test Item Value Reference Range Interpretation Comments Basophils (test code = 1.0 See_Comment [Aut omated message] The Basophils) system which ge nerated this result tra nsmitted reference range : <=1.0. The reference r ondina was not used to int erpret this result as normal/abnormal . [facility] [place]neGsrcqbrEJOCBOIOAG3011-03-07 12:27:00 Test Item Value Reference Range Interpretation Comments Eosinophils (test code = 3.9 See_Comment [A utomated message] The Eosinophils) system which ge nerated this result tra nsmitted reference range : <=4.0. The reference r ondina was not used to int erpret this result as normal/abnormal . [facility] HospitalQldielkVMXEMHWIPWYK7580-68-53 12:27:00 Test Item Value Reference Range Interpretation Comments AGAP (test code = AGAP) 12.7 10.0-20.0 [facility] HospitalTjifftzQPJGMODLVEBJ4757-70-25 12:27:00 Test Item Value Reference Range Interpretation Comments Glucose Lvl (test code = Glucose Lvl) 79 70-99 [facility] HospitalRsfqwcwCDAUVNECNQRH4211-57-21 12:27:00 Test Item Value Reference Range Interpretation Comments Potassium Lvl (test code = Potassium 3.7 3.5-5.1 Lvl) [facility] HospitalWbnqugsLPAVYIQUTSKY7702-27-20 12:27:00 Test Item Value Reference Range Interpretation Comments Sodium Lvl (test code = Sodium Lvl) 144 135-145 [facility] HospitalAzjobqkMBXKTXPTQLWU7636-32-27 12:27:00 Test Item Value Reference Range Interpretation Comments Chloride Lvl (test code = Chloride Lvl) 109 95-109 [facility] HospitalUrqbxfpXIPNLQVPLDVH1147-25-85 12:27:00 Test Item Value Reference Range Interpretation Comments eGFR (test code = eGFR) 104 [facility] HospitalKrqrhesKVSCJQNUNALL3136-90-93 12:27:00 Test Item Value Reference Range Interpretation Comments Creatinine Lvl (test code = Creatinine 0.68 0.50-1.40 Lvl) [facility] HospitalEadislhHGAVNIUCVETJ8281-65-18 12:27:00 Test Item Value Reference Range Interpretation Comments Calcium Lvl (test code = Calcium Lvl) 8.2 8.5-10.5 [facility] HospitalVjcbklkIALYKMZBGDIO1105-82-02 12:27:00 Test Item Value Reference Range Interpretation Comments CO2 (test code = CO2) 26 24-32 [facility] HospitalGlmjicmGMPIPOSQCLZY8069-37-27 12:27:00 Test Item Value Reference Range Interpretation Comments BUN (test code = BUN) 9 7- [facility] [place]neOygpvswDGQYGYZZGP9321-64-66 12:27:00 Test Item Value Reference Range Interpretation Comments MPV (test code = MPV) 8.2 7.4-10.4 [facility] [place]neVtismezUAPNQDEBMB9785-22-33 12:27:00 Test Item Value Reference Range Interpretation Comments RDW (test code = RDW) 17.6 11.5-14.5 [facility] [place]neKdejokjTCZTDIARNJ5581-87-60 12:27:00 Test Item Value Reference Range Interpretation Comments Platelet (test code = Platelet) 336 133-450 [facility] [place]neNbbhmqiADQUWNJMLC9484-47-99 12:27:00 Test Item Value Reference Range Interpretation Comments MCV (test code = MCV) 80.4 80.0-94.0 [facility] [place]neMqbrhpuYMLSQLPUZO7604-93-42 12:27:00 Test Item Value Reference Range Interpretation Comments MCH (test code = MCH) 25.7 pg 27.0-31.0 [facility] Cle[place]neBfrhfevKCSUAVHDAU4360-68-13 12:27:00 Test Item Value Reference Range Interpretation Comments MCHC (test code = MCHC) 32.0 32.0-36.0 [facility] [place]neXkkahnuQALXOALBYW4261-82-74 12:27:00 Test Item Value Reference Range Interpretation Comments RBC (test code = RBC) 3.65 4.70-6.10 [facility] Cle[place]neZlvvrdeCHYXYBXLDM5587-98-93 12:27:00 Test Item Value Reference Range Interpretation Comments WBC (test code = WBC) 6.8 3.7-10.4 [facility] [place]neTwzigibMAHXOQIHVF7045-70-40 12:27:00 Test Item Value Reference Range Interpretation Comments Hgb (test code = Hgb) 9.4 14.0-18.0 [facility] [place]neIvvbhnlXNETXZOKBB4443-45-40 12:27:00 Test Item Value Reference Range Interpretation Comments Hct (test code = Hct) 29.3 42.0-54.0 [facility] [place]neVqxqwwwCOZDDNHDLD7329-29-04 12:27:00 Test Item Value Reference Range Interpretation Comments Lymphocytes # (test code = Lymphocytes 1.4 1.0-5.5 #) [facility] [place]neSvvdgfmBBWIZJXZQH4993-44-86 12:27:00 Test Item Value Reference Range Interpretation Comments Monocytes # (test code 0.6 See_Comment [Aut omated message] The = Monocytes #) system which generated this result tra nsmitted reference range : <=0.8. The reference r ondina was not used to int erpret this result as normal/abnormal . [facility] [place]neVzsoqxxGAWEWDYASF7021-48-43 12:27:00 Test Item Value Reference Range Interpretation Comments Basophils # (test code 0.1 See_Comment [Aut omated message] The = Basophils #) system which generated this result tra nsmitted reference range : <=0.2. The reference r ondina was not used to int erpret this result as normal/abnormal . [facility] [place]neAekxkgvJEHFUWSTWL4359-65-13 12:27:00 Test Item Value Reference Range Interpretation Comments Neutrophils # (test code = Neutrophils 4.5 1.5-8.1 #) [facility] [place]neUswqkgvVJFJORVVAZ9236-09-02 12:27:00 Test Item Value Reference Range Interpretation Comments Lymphocytes (test code = Lymphocytes) 19.9 20.0-40.0 [facility] [place]neHyfqdpuZIYVXAYHJO8196-95-50 12:27:00 Test Item Value Reference Range Interpretation Comments Monocytes (test code = Monocytes) 8.8 2.0-12.0 [facility] [place]neVfhtnpdGBRUORYXSJ1176-19-60 12:27:00 Test Item Value Reference Range Interpretation Comments Segs (test code = Segs) 66.4 45.0-75.0 [facility] [place]neKwhhbbgEPWXGZZBMG0758-50-19 12:27:00 Test Item Value Reference Range Interpretation Comments Eosinophils # (test code 0.3 See_Comment [A utomated message] The = Eosinophils #) system whic h generated this result tra nsmitted reference range : <=0.5. The reference r ondina was not used to int erpret this result as normal/abnormal . [facility] [place]neTxqrxuwAQULFSINLC7386-86-31 12:27:00 Test Item Value Reference Range Interpretation Comments Basophils (test code = 1.0 See_Comment [Aut omated message] The Basophils) system which ge nerated this result tra nsmitted reference range : <=1.0. The reference r ondina was not used to int erpret this result as normal/abnormal . [facility] [place]neUjoxcpuAFXLANMQIW2005-65-08 12:27:00 Test Item Value Reference Range Interpretation Comments Eosinophils (test code = 3.9 See_Comment [A utomated message] The Eosinophils) system which ge nerated this result tra nsmitted reference range : <=4.0. The reference r ondina was not used to int erpret this result as normal/abnormal . [facility] HospitalLogvyefRGMKYHIWWTZG6353-73-29 12:27:00 Test Item Value Reference Range Interpretation Comments AGAP (test code = AGAP) 12.7 10.0-20.0 [facility] HospitalDbsjkklZJJZCLWUPKFK8796-76-55 12:27:00 Test Item Value Reference Range Interpretation Comments Glucose Lvl (test code = Glucose Lvl) 79 70-99 [facility] HospitalQxfscmgNTLNHPJJWBYR9157-87-09 12:27:00 Test Item Value Reference Range Interpretation Comments Potassium Lvl (test code = Potassium 3.7 3.5-5.1 Lvl) [facility] HospitalKccuvyrHHQTOWANEHKK1344-14-64 12:27:00 Test Item Value Reference Range Interpretation Comments Sodium Lvl (test code = Sodium Lvl) 144 135-145 [facility] HospitalJwjbstpJOYFBPRMMTYS1269-22-35 12:27:00 Test Item Value Reference Range Interpretation Comments Chloride Lvl (test code = Chloride Lvl) 109 95-109 [facility] HospitalPqguhewXVFELNGFWWRN5800-63-06 12:27:00 Test Item Value Reference Range Interpretation Comments eGFR (test code = eGFR) 104 [facility] HospitalQyeeojbZLUSSKXDJAHY6236-60-67 12:27:00 Test Item Value Reference Range Interpretation Comments Creatinine Lvl (test code = Creatinine 0.68 0.50-1.40 Lvl) [facility] HospitalBfgqivwIXJEJSRXILPU3469-84-14 12:27:00 Test Item Value Reference Range Interpretation Comments Calcium Lvl (test code = Calcium Lvl) 8.2 8.5-10.5 [facility] HospitalEzmckuxHWMLHCYDXPWU6766-28-25 12:27:00 Test Item Value Reference Range Interpretation Comments CO2 (test code = CO2) 26 24-32 [facility] HospitalQezuxlgEKJYYOANVBTY7880-74-56 12:27:00 Test Item Value Reference Range Interpretation Comments BUN (test code = BUN) 9 7-22 [facility] [place]neAmfsgctLEUCITMHIP3843-22-02 12:27:00 Test Item Value Reference Range Interpretation Comments MPV (test code = MPV) 8.2 7.4-10.4 [facility] [place]neYifkqyqSANNDHCLBE1586-49-77 12:27:00 Test Item Value Reference Range Interpretation Comments RDW (test code = RDW) 17.6 11.5-14.5 [facility] Cle[place]neYzupckgOFXGGXOEHF6647-98-23 12:27:00 Test Item Value Reference Range Interpretation Comments Platelet (test code = Platelet) 336 133-450 [facility] CleburneDnroilfHJHZMGOSTJ0721-03-59 12:27:00 Test Item Value Reference Range Interpretation Comments MCV (test code = MCV) 80.4 80.0-94.0 [facility] Cle[place]neSscjpwmCDPUQDGLRQ9742-73-03 12:27:00 Test Item Value Reference Range Interpretation Comments MCH (test code = MCH) 25.7 pg 27.0-31.0 [facility] Cle[place]neThlozfaXWDPEXRRZK0904-80-20 12:27:00 Test Item Value Reference Range Interpretation Comments MCHC (test code = MCHC) 32.0 32.0-36.0 [facility] Cle[place]neQqmjnxbQJECOKXYBE7453-53-84 12:27:00 Test Item Value Reference Range Interpretation Comments RBC (test code = RBC) 3.65 4.70-6.10 [facility] Cle[place]neVdddsblGWQYTMJDON2663-96-32 12:27:00 Test Item Value Reference Range Interpretation Comments WBC (test code = WBC) 6.8 3.7-10.4 [facility] Cle[place]neKuhssisSZTXUNYKBP1388-24-13 12:27:00 Test Item Value Reference Range Interpretation Comments Hgb (test code = Hgb) 9.4 14.0-18.0 [facility] CleburneHyaamnlUVRPEMFCLE5756-13-21 12:27:00 Test Item Value Reference Range Interpretation Comments Hct (test code = Hct) 29.3 42.0-54.0 [facility] CleburneDkripwdTWJYPJRERS6834-31-32 12:27:00 Test Item Value Reference Range Interpretation Comments Lymphocytes # (test code = Lymphocytes 1.4 1.0-5.5 #) [facility] [place]neWzxraxvIWUMHEYXKX2253-63-15 12:27:00 Test Item Value Reference Range Interpretation Comments Monocytes # (test code 0.6 See_Comment [Aut omated message] The = Monocytes #) system which generated this result tra nsmitted reference range : <=0.8. The reference r ondina was not used to int erpret this result as normal/abnormal . [facility] CleburneYiieezcLBNMEJHYLP6943-37-41 12:27:00 Test Item Value Reference Range Interpretation Comments Basophils # (test code 0.1 See_Comment [Aut omated message] The = Basophils #) system which generated this result tra nsmitted reference range : <=0.2. The reference r ondina was not used to int erpret this result as normal/abnormal . [facility] Cle[place]neWugowsmDPTSQEACVJ5211-99-43 12:27:00 Test Item Value Reference Range Interpretation Comments Neutrophils # (test code = Neutrophils 4.5 1.5-8.1 #) [facility] CleburneAckoflpZMHHSPERVI1008-96-39 12:27:00 Test Item Value Reference Range Interpretation Comments Lymphocytes (test code = Lymphocytes) 19.9 20.0-40.0 [facility] Cle[place]neMjiufkiYHJHCRMJGZ0306-05-45 12:27:00 Test Item Value Reference Range Interpretation Comments Monocytes (test code = Monocytes) 8.8 2.0-12.0 [facility] CleburneMcnpveiNEBTQXJXTV5913-29-58 12:27:00 Test Item Value Reference Range Interpretation Comments Segs (test code = Segs) 66.4 45.0-75.0 [facility] Cle[place]neKphexmcWQXSACPQAP7965-11-50 12:27:00 Test Item Value Reference Range Interpretation Comments Eosinophils # (test code 0.3 See_Comment [A utomated message] The = Eosinophils #) system whic h generated this result tra nsmitted reference range : <=0.5. The reference r ondina was not used to int erpret this result as normal/abnormal . [facility] Cle[place]neXplpscmPVBKWSPLFE3786-39-12 12:27:00 Test Item Value Reference Range Interpretation Comments Basophils (test code = 1.0 See_Comment [Aut omated message] The Basophils) system which ge nerated this result tra nsmitted reference range : <=1.0. The reference r ondina was not used to int erpret this result as normal/abnormal . [facility] TexasSqcyariQWSNHYEECP7303-83-23 12:27:00 Test Item Value Reference Range Interpretation Comments Eosinophils (test code = 3.9 See_Comment [A utomated message] The Eosinophils) system which ge nerated this result tra nsmitted reference range : <=4.0. The reference r ondina was not used to int erpret this result as normal/abnormal . [facility]DvuldukOOHTOUUPXAVW0145-21-39 12:27:00 Test Item Value Reference Range Interpretation Comments AGAP (test code = AGAP) 12.7 10.0-20.0 [facility] HospitalMyidonjNJLDBMDLEWGX2238-65-83 12:27:00 Test Item Value Reference Range Interpretation Comments Glucose Lvl (test code = Glucose Lvl) 79 70-99 [facility] HospitalJxdcinpXKNADENPFRGD2896-44-98 12:27:00 Test Item Value Reference Range Interpretation Comments Potassium Lvl (test code = Potassium 3.7 3.5-5.1 Lvl) [facility] HospitalBzqtqgnFLZLBITSNFZE3690-91-94 12:27:00 Test Item Value Reference Range Interpretation Comments Sodium Lvl (test code = Sodium Lvl) 144 135-145 [facility] HospitalTwpzzimDWZBWZNJJIGB9935-17-48 12:27:00 Test Item Value Reference Range Interpretation Comments Chloride Lvl (test code = Chloride Lvl) 109 95-109 [facility] HospitalJyfqcmuIXRLKZXLREYE2394-74-46 12:27:00 Test Item Value Reference Range Interpretation Comments eGFR (test code = eGFR) 104 [facility] HospitalHqtlrpoWPDMMVUIUNFS8868-73-48 12:27:00 Test Item Value Reference Range Interpretation Comments Creatinine Lvl (test code = Creatinine 0.68 0.50-1.40 Lvl) [facility] HospitalPusdcmjUHHEALHWVZJE9052-63-06 12:27:00 Test Item Value Reference Range Interpretation Comments Calcium Lvl (test code = Calcium Lvl) 8.2 8.5-10.5 [facility] HospitalNqqewbaJFRSURTMGPJZ4283-70-39 12:27:00 Test Item Value Reference Range Interpretation Comments CO2 (test code = CO2) 26 24-32 [facility] HospitalZwvbjfiEHZJJVOPQVSJ0398-05-84 12:27:00 Test Item Value Reference Range Interpretation Comments BUN (test code = BUN) 9 7-22 [facility]NtlxjseGRBEPTVHHD0165-30-04 12:27:00 Test Item Value Reference Range Interpretation Comments MPV (test code = MPV) 8.2 7.4-10.4 [facility]neLlxauzrDYNFZQSFRE1391-21-76 12:27:00 Test Item Value Reference Range Interpretation Comments RDW (test code = RDW) 17.6 11.5-14.5 [facility]neSsqdhdqQATSMBALES0206-98-64 12:27:00 Test Item Value Reference Range Interpretation Comments Platelet (test code = Platelet) 336 133-450 [facility]neIjoespdRJTXMUBQQW6170-22-13 12:27:00 Test Item Value Reference Range Interpretation Comments MCV (test code = MCV) 80.4 80.0-94.0 [facility]neRhipiqpNIQTFTAYTF5053-90-24 12:27:00 Test Item Value Reference Range Interpretation Comments MCH (test code = MCH) 25.7 pg 27.0-31.0 [facility]neQzgfamiEAADHDAJJS9344-00-54 12:27:00 Test Item Value Reference Range Interpretation Comments MCHC (test code = MCHC) 32.0 32.0-36.0 [facility]neQfjyautNBEXMODNGR1121-36-61 12:27:00 Test Item Value Reference Range Interpretation Comments RBC (test code = RBC) 3.65 4.70-6.10 [facility]neFyvvsqxOSURBABXPQ8094-11-38 12:27:00 Test Item Value Reference Range Interpretation Comments WBC (test code = WBC) 6.8 3.7-10.4 [facility] Cle[facility]neNynnnzuQUBBOFHIVT1909-88-84 12:27:00 Test Item Value Reference Range Interpretation Comments Hgb (test code = Hgb) 9.4 14.0-18.0 [facility] Cle[facility]neTeejyxwIAMBJYPPMM6048-77-97 12:27:00 Test Item Value Reference Range Interpretation Comments Hct (test code = Hct) 29.3 42.0-54.0 [facility]neMjaclejXEHZOZSRGX4631-91-46 12:27:00 Test Item Value Reference Range Interpretation Comments Lymphocytes # (test code = Lymphocytes 1.4 1.0-5.5 #) [facility]neTlnwhxmRZKCWSNWOB9168-13-51 12:27:00 Test Item Value Reference Range Interpretation Comments Monocytes # (test code = Monocytes #) 0.6 <=0.8 [facility]neHmnundvKZGLAGUBSU0156-25-03 12:27:00 Test Item Value Reference Range Interpretation Comments Basophils # (test code = Basophils #) 0.1 <=0.2 [facility]neXfwfdloFZPKSIRHDS2986-27-94 12:27:00 Test Item Value Reference Range Interpretation Comments Neutrophils # (test code = Neutrophils 4.5 1.5-8.1 #) [facility] Cle[facility]neCqqufiiCEBAZERFHI4499-65-58 12:27:00 Test Item Value Reference Range Interpretation Comments Lymphocytes (test code = Lymphocytes) 19.9 20.0-40.0 [facility] Cle[facility]neDpotqqhNLFTFGVTMJ6913-68-47 12:27:00 Test Item Value Reference Range Interpretation Comments Monocytes (test code = Monocytes) 8.8 2.0-12.0 [facility] Cle[facility]neMyxszycQGAORJDHAO9067-10-71 12:27:00 Test Item Value Reference Range Interpretation Comments Segs (test code = Segs) 66.4 45.0-75.0 [facility]neXvjxsccWEUTZLXKCQ1051-45-54 12:27:00 Test Item Value Reference Range Interpretation Comments Eosinophils # (test code = Eosinophils 0.3 <=0.5 #) [facility] Cle[facility]neIqpmdatVOHXZONATV0316-32-62 12:27:00 Test Item Value Reference Range Interpretation Comments Basophils (test code = Basophils) 1.0 <=1.0 [facility]neQmlpvdeKQPLRBCSEU6657-73-21 12:27:00 Test Item Value Reference Range Interpretation Comments Eosinophils (test code = Eosinophils) 3.9 <=4.0 [facility] HospitalThzkxwwZGHUREALURIF9237-29-34 12:27:00 Test Item Value Reference Range Interpretation Comments AGAP (test code = AGAP) 12.7 10.0-20.0 [facility] HospitalOersoieMLBMXYAOIFMX9536-03-88 12:27:00 Test Item Value Reference Range Interpretation Comments Glucose Lvl (test code = Glucose Lvl) 79 70-99 [facility] HospitalXmvturyBDAUFNDQEFHG4653-55-91 12:27:00 Test Item Value Reference Range Interpretation Comments Potassium Lvl (test code = Potassium 3.7 3.5-5.1 Lvl) [facility] HospitalHoklybiUGRGMJGVRZSX4115-79-26 12:27:00 Test Item Value Reference Range Interpretation Comments Sodium Lvl (test code = Sodium Lvl) 144 135-145 [facility] HospitalYeflmjnKVXJSJVIYTGV3744-52-88 12:27:00 Test Item Value Reference Range Interpretation Comments Chloride Lvl (test code = Chloride Lvl) 109 95-109 [facility] HospitalUbyqnffQTNGWFONXSHM6334-37-46 12:27:00 Test Item Value Reference Range Interpretation Comments eGFR (test code = eGFR) 104 [facility] HospitalAhyciysGFMZUZGXJCBQ1690-00-14 12:27:00 Test Item Value Reference Range Interpretation Comments Creatinine Lvl (test code = Creatinine 0.68 0.50-1.40 Lvl) [facility] HospitalWofbmxgJEJURQWDGLWP1929-85-96 12:27:00 Test Item Value Reference Range Interpretation Comments Calcium Lvl (test code = Calcium Lvl) 8.2 8.5-10.5 [facility] HospitalDpuecxwETMWROSLWWQI6121-52-55 12:27:00 Test Item Value Reference Range Interpretation Comments CO2 (test code = CO2) 26 24-32 [facility] HospitalVazmxudMAIKMTCJZJMM1878-12-67 12:27:00 Test Item Value Reference Range Interpretation Comments BUN (test code = BUN) 9 7-22 [facility]neKtbknquBRFLHANNSY9771-70-05 12:27:00 Test Item Value Reference Range Interpretation Comments MPV (test code = MPV) 8.2 7.4-10.4 [facility]neQwrssplFRTAVAWSIW9639-14-10 12:27:00 Test Item Value Reference Range Interpretation Comments RDW (test code = RDW) 17.6 11.5-14.5 [facility]neMdkcbaeBPCBKDSJDH2989-57-99 12:27:00 Test Item Value Reference Range Interpretation Comments Platelet (test code = Platelet) 336 133-450 [facility]neMclztnbVBSIHSJMMQ3819-44-18 12:27:00 Test Item Value Reference Range Interpretation Comments MCV (test code = MCV) 80.4 80.0-94.0 [facility] Cle[facility]neLygmqseZKWOCCROVF2014-65-46 12:27:00 Test Item Value Reference Range Interpretation Comments MCH (test code = MCH) 25.7 pg 27.0-31.0 [facility] Cle[facility]neOliuzmcIGSFLBEAGJ4408-80-47 12:27:00 Test Item Value Reference Range Interpretation Comments MCHC (test code = MCHC) 32.0 32.0-36.0 [facility]neNrdgfqfXKEJQNMHWX5174-51-82 12:27:00 Test Item Value Reference Range Interpretation Comments RBC (test code = RBC) 3.65 4.70-6.10 [facility] CleburneRfcvotzPFCCVXHWAH0821-38-98 12:27:00 Test Item Value Reference Range Interpretation Comments WBC (test code = WBC) 6.8 3.7-10.4 [facility] Cle[facility]neClbeeynIAGNSTRCHJ3997-35-66 12:27:00 Test Item Value Reference Range Interpretation Comments Hgb (test code = Hgb) 9.4 14.0-18.0 [facility] CleburneHgzrdksOFEWMBORLS6792-29-62 12:27:00 Test Item Value Reference Range Interpretation Comments Hct (test code = Hct) 29.3 42.0-54.0 [facility]neCxasqxoJKBXPLUNOB4650-42-50 12:27:00 Test Item Value Reference Range Interpretation Comments Lymphocytes # (test code = Lymphocytes 1.4 1.0-5.5 #) [facility] Cle[facility]neTtevsvuAQZBJLTRUW9537-15-56 12:27:00 Test Item Value Reference Range Interpretation Comments Monocytes # (test code 0.6 See_Comment [Aut omated message] The = Monocytes #) system which generated this result tra nsmitted reference range : <=0.8. The reference r ondina was not used to int erpret this result as normal/abnormal . [facility] Cle[facility]neGftqmdsXRHVANVUNF7912-88-17 12:27:00 Test Item Value Reference Range Interpretation Comments Basophils # (test code 0.1 See_Comment [Aut omated message] The = Basophils #) system which generated this result tra nsmitted reference range : <=0.2. The reference r ondina was not used to int erpret this result as normal/abnormal . [facility]neJvorhgyVPOEOVOQHM5241-79-46 12:27:00 Test Item Value Reference Range Interpretation Comments Neutrophils # (test code = Neutrophils 4.5 1.5-8.1 #) [facility] Cle[facility]neFjfhvcjPEPEIVQWZZ0844-64-97 12:27:00 Test Item Value Reference Range Interpretation Comments Lymphocytes (test code = Lymphocytes) 19.9 20.0-40.0 [facility]neKnmifkkUZXOIKCWZT4706-93-39 12:27:00 Test Item Value Reference Range Interpretation Comments Monocytes (test code = Monocytes) 8.8 2.0-12.0 [facility]neQblzgskBLTOIVNSMU0492-31-70 12:27:00 Test Item Value Reference Range Interpretation Comments Segs (test code = Segs) 66.4 45.0-75.0 [facility] Cle[facility]neQzeitmhKZRURUDGWT9766-92-51 12:27:00 Test Item Value Reference Range Interpretation Comments Eosinophils # (test code 0.3 See_Comment [A utomated message] The = Eosinophils #) system whic h generated this result tra nsmitted reference range : <=0.5. The reference r ondina was not used to int erpret this result as normal/abnormal . [facility] CleburneGttgyaeWNAJVJPCWQ5959-21-68 12:27:00 Test Item Value Reference Range Interpretation Comments Basophils (test code = 1.0 See_Comment [Aut omated message] The Basophils) system which ge nerated this result tra nsmitted reference range : <=1.0. The reference r ondina was not used to int erpret this result as normal/abnormal . [facility]neKvclzopDYDFGXHTXQ0579-58-21 12:27:00 Test Item Value Reference Range Interpretation Comments Eosinophils (test code = 3.9 See_Comment [A utomated message] The Eosinophils) system which ge nerated this result tra nsmitted reference range : <=4.0. The reference r ondina was not used to int erpret this result as normal/abnormal . [facility] HospitalUkyvshkCAXIOFDIRYPY3075-84-90 12:27:00 Test Item Value Reference Range Interpretation Comments AGAP (test code = AGAP) 12.7 10.0-20.0 [facility] HospitalVwdotrnXANFLWACNJSM5412-68-97 12:27:00 Test Item Value Reference Range Interpretation Comments Glucose Lvl (test code = Glucose Lvl) 79 70-99 [facility] HospitalIfzagwgUJTJXWLWNYNW8030-03-35 12:27:00 Test Item Value Reference Range Interpretation Comments Potassium Lvl (test code = Potassium 3.7 3.5-5.1 Lvl) [facility] HospitalSrwmfsiMUJPUFJXUZAG5052-17-63 12:27:00 Test Item Value Reference Range Interpretation Comments Sodium Lvl (test code = Sodium Lvl) 144 135-145 [facility] HospitalVjojzvjONVNILJATWCQ3887-94-19 12:27:00 Test Item Value Reference Range Interpretation Comments Chloride Lvl (test code = Chloride Lvl) 109 95-109 [facility] HospitalBiucrfiGMMOZEXZDUCX4776-73-97 12:27:00 Test Item Value Reference Range Interpretation Comments eGFR (test code = eGFR) 104 [facility] HospitalJotvueqPVGDSVRULCDK2915-19-49 12:27:00 Test Item Value Reference Range Interpretation Comments Creatinine Lvl (test code = Creatinine 0.68 0.50-1.40 Lvl) [facility] HospitalTkekorlODHVROLPWEAC2544-99-05 12:27:00 Test Item Value Reference Range Interpretation Comments Calcium Lvl (test code = Calcium Lvl) 8.2 8.5-10.5 [facility] HospitalSdjsmsyBRHLJYBTRMVD6578-52-28 12:27:00 Test Item Value Reference Range Interpretation Comments CO2 (test code = CO2) 26 24-32 [facility] HospitalIngumbqVTTBCDEVUGUX8425-15-26 12:27:00 Test Item Value Reference Range Interpretation Comments BUN (test code = BUN) 9 7-22 [facility]neVqcajuuQBUAEHBSDX8584-87-79 12:27:00 Test Item Value Reference Range Interpretation Comments MPV (test code = MPV) 8.2 7.4-10.4 [facility]neAlmpmccSJFOPXJBVE8125-47-17 12:27:00 Test Item Value Reference Range Interpretation Comments RDW (test code = RDW) 17.6 11.5-14.5 [facility]neEclrouoXUQSSJJURQ1656-78-14 12:27:00 Test Item Value Reference Range Interpretation Comments Platelet (test code = Platelet) 336 133-450 [facility]neMpozqzeDXTNSEBLGB7235-42-48 12:27:00 Test Item Value Reference Range Interpretation Comments MCV (test code = MCV) 80.4 80.0-94.0 [facility]neYdukfcfEGRUKMHNBZ3800-50-60 12:27:00 Test Item Value Reference Range Interpretation Comments MCH (test code = MCH) 25.7 pg 27.0-31.0 [facility]neAdffpmjPJFAGGZVUA9142-21-83 12:27:00 Test Item Value Reference Range Interpretation Comments MCHC (test code = MCHC) 32.0 32.0-36.0 [facility]neCgnafptOFTGSZQKSY4540-73-94 12:27:00 Test Item Value Reference Range Interpretation Comments RBC (test code = RBC) 3.65 4.70-6.10 [facility]neFwwtkhhRYPUMAZLQF1869-26-37 12:27:00 Test Item Value Reference Range Interpretation Comments WBC (test code = WBC) 6.8 3.7-10.4 [facility]neMpqbrbsJJESNQJEGH9880-05-95 12:27:00 Test Item Value Reference Range Interpretation Comments Hgb (test code = Hgb) 9.4 14.0-18.0 [facility]neEoebhxiXPBTTUXHYW1410-85-29 12:27:00 Test Item Value Reference Range Interpretation Comments Hct (test code = Hct) 29.3 42.0-54.0 [facility] Cle[facility]neIhqnoccIOAMIXPNXV3436-99-99 12:27:00 Test Item Value Reference Range Interpretation Comments Lymphocytes # (test code = Lymphocytes 1.4 1.0-5.5 #) [facility]neTiugdxqLWMJQZDXZS9536-18-30 12:27:00 Test Item Value Reference Range Interpretation Comments Monocytes # (test code = Monocytes #) 0.6 <=0.8 [facility] Cle[facility]neUxsqtrcHIZPMKVBJU7069-43-17 12:27:00 Test Item Value Reference Range Interpretation Comments Basophils # (test code = Basophils #) 0.1 <=0.2 [facility]neBrjjvocNURQMPRPDH6315-05-31 12:27:00 Test Item Value Reference Range Interpretation Comments Neutrophils # (test code = Neutrophils 4.5 1.5-8.1 #) [facility]neJovggjvSRTXZCLTAA8487-76-91 12:27:00 Test Item Value Reference Range Interpretation Comments Lymphocytes (test code = Lymphocytes) 19.9 20.0-40.0 [facility] Cle[facility]neHbrjfpqCDAFCDJBVS3183-48-17 12:27:00 Test Item Value Reference Range Interpretation Comments Monocytes (test code = Monocytes) 8.8 2.0-12.0 [facility] Cle[facility]neOtzvpodWKIOQIMHUC1828-14-12 12:27:00 Test Item Value Reference Range Interpretation Comments Segs (test code = Segs) 66.4 45.0-75.0 [facility]neTaecbfmTSEFSSFBUF2966-54-17 12:27:00 Test Item Value Reference Range Interpretation Comments Eosinophils # (test code = Eosinophils 0.3 <=0.5 #) [facility]neVmqvxnwEDRLKLGXDP4654-95-37 12:27:00 Test Item Value Reference Range Interpretation Comments Basophils (test code = Basophils) 1.0 <=1.0 [facility]neQkpxfsiXTHIYFSKOA6668-26-65 12:27:00 Test Item Value Reference Range Interpretation Comments Eosinophils (test code = Eosinophils) 3.9 <=4.0 [facility]2018-12-19 10:35:00 Test Item Value Reference Range Interpretation Comments Calcium Lvl (test code = Calcium Lvl) 7.8 8.5-10.5 [facility]2018-12-19 10:35:00 Test Item Value Reference Range Interpretation Comments eGFR (test code = eGFR) 112 [facility]2018-12-19 10:35:00 Test Item Value Reference Range Interpretation Comments Creatinine Lvl (test code = Creatinine 0.56 0.50-1.40 Lvl) [facility]2018-12-19 10:35:00 Test Item Value Reference Range Interpretation Comments Phosphorus (test code = Phosphorus) 2.9 2.5-4.5 [facility]2018-12-19 10:35:00 Test Item Value Reference Range Interpretation Comments Glucose Lvl (test code = Glucose Lvl) 89 70-99 [facility]2018-12-19 10:35:00 Test Item Value Reference Range Interpretation Comments CO2 (test code = CO2) 25 24-32 [facility]2018-12-19 10:35:00 Test Item Value Reference Range Interpretation Comments BUN (test code = BUN) 9 7-22 [facility]2018-12-19 10:35:00 Test Item Value Reference Range Interpretation Comments Albumin Lvl (test code = Albumin Lvl) 2.1 3.5-5.0 [facility]2018-12-19 10:35:00 Test Item Value Reference Range Interpretation Comments Chloride Lvl (test code = Chloride Lvl) 111 95-109 [facility]2018-12-19 10:35:00 Test Item Value Reference Range Interpretation Comments Sodium Lvl (test code = Sodium Lvl) 144 135-145 [facility]2018-12-19 10:35:00 Test Item Value Reference Range Interpretation Comments Potassium Lvl (test code = Potassium 3.6 3.5-5.1 Lvl) [facility]2018-12-19 10:35:00 Test Item Value Reference Range Interpretation Comments AGAP (test code = AGAP) 11.6 10.0-20.0 [facility]neUtcjfloXXPLSZAPXH9286-42-92 10:35:00 Test Item Value Reference Range Interpretation Comments Hgb (test code = Hgb) 9.0 14.0-18.0 [facility]neJrntevpIJVXRDQTCB9363-34-95 10:35:00 Test Item Value Reference Range Interpretation Comments RBC (test code = RBC) 3.53 4.70-6.10 [place] 085098-12-19 10:35:00 Test Item Value Reference Range Interpretation Comments MCV (test code = MCV) 81.1 80.0-94.0 [facility]neHnhhszjBMHUDBVGIN4743-42-82 10:35:00 Test Item Value Reference Range Interpretation Comments Hct (test code = Hct) 28.6 42.0-54.0 [facility] Cle[facility]neHseguftSTKCGTROOV0052-65-23 10:35:00 Test Item Value Reference Range Interpretation Comments WBC (test code = WBC) 6.9 3.7-10.4 [facility] CleburneEchmoozEDVYQRKAOU8126-69-40 10:35:00 Test Item Value Reference Range Interpretation Comments MPV (test code = MPV) 7.8 7.4-10.4 [facility] Cle[facility]neTqziocpSDZBATUPXY5913-86-98 10:35:00 Test Item Value Reference Range Interpretation Comments Platelet (test code = Platelet) 294 133-450 [facility] CleburneZtdnkxuUEVJUVLWGP7931-43-85 10:35:00 Test Item Value Reference Range Interpretation Comments RDW (test code = RDW) 17.5 11.5-14.5 [facility] Cle[facility]neLaotgvcIVIXAPJDFZ2068-50-23 10:35:00 Test Item Value Reference Range Interpretation Comments MCHC (test code = MCHC) 31.7 32.0-36.0 [facility]neCghnymvSZWYZBDLCZ3603-87-72 10:35:00 Test Item Value Reference Range Interpretation Comments MCH (test code = MCH) 25.7 pg 27.0-31.0 [facility] CleburneRektplyGAXQDLLAIW9510-93-62 10:35:00 Test Item Value Reference Range Interpretation Comments Lymphocytes (test code = Lymphocytes) 18.5 20.0-40.0 [facility] CleburneBeuxwerWBTNPLIVQR2665-40-83 10:35:00 Test Item Value Reference Range Interpretation Comments Segs (test code = Segs) 67.0 45.0-75.0 [facility] CleburneVjwyuovRVYOTOKWLY4000-86-92 10:35:00 Test Item Value Reference Range Interpretation Comments Monocytes (test code = Monocytes) 9.8 2.0-12.0 [facility]neKxmetcqBVXDDQCZNQ2344-58-89 10:35:00 Test Item Value Reference Range Interpretation Comments Basophils (test code = 1.0 See_Comment [Aut omated message] The Basophils) system which ge nerated this result tra nsmitted reference range : <=1.0. The reference r ondina was not used to int erpret this result as normal/abnormal . [facility] CleburneVzkzkbuEUYFEHPPJZ6814-64-66 10:35:00 Test Item Value Reference Range Interpretation Comments Eosinophils (test code = 3.7 See_Comment [A utomated message] The Eosinophils) system which ge nerated this result tra nsmitted reference range : <=4.0. The reference r ondina was not used to int erpret this result as normal/abnormal . [facility] CleburneEgpunyaEUBOPLITCV8075-24-82 10:35:00 Test Item Value Reference Range Interpretation Comments Monocytes # (test code 0.7 See_Comment [Aut omated message] The = Monocytes #) system which generated this result tra nsmitted reference range : <=0.8. The reference r ondina was not used to int erpret this result as normal/abnormal . [facility] CleburneLaxvtzsPGVYYSOGZI7085-08-38 10:35:00 Test Item Value Reference Range Interpretation Comments Lymphocytes # (test code = Lymphocytes 1.3 1.0-5.5 #) [facility] CleburneCtfkiomQTURJGROWS7739-19-10 10:35:00 Test Item Value Reference Range Interpretation Comments Neutrophils # (test code = Neutrophils 4.6 1.5-8.1 #) [facility] CleburneAjjgnabHRJTOXYCWE5488-86-93 10:35:00 Test Item Value Reference Range Interpretation Comments Basophils # (test code 0.1 See_Comment [Aut omated message] The = Basophils #) system which generated this result tra nsmitted reference range : <=0.2. The reference r ondina was not used to int erpret this result as normal/abnormal . [facility] CleburneAhugeooPPGEFYMSMH4743-60-08 10:35:00 Test Item Value Reference Range Interpretation Comments Eosinophils # (test code 0.3 See_Comment [A utomated message] The = Eosinophils #) system whic h generated this result tra nsmitted reference range : <=0.5. The reference r ondina was not used to int erpret this result as normal/abnormal . [place] [id number] 10:35:00 Test Item Value Reference Range Interpretation Comments Michaelo Tr (test code = Vanco Tr) 21.8 [place] [id number] 10:35:00 Test Item Value Reference Range Interpretation Comments Vanco Tr TND (test code = Vanco Tr 0500 1 TND) [facility]2018-12-19 10:35:00 Test Item Value Reference Range Interpretation Comments Calcium Lvl (test code = Calcium Lvl) 7.8 8.5-10.5 [facility]2018-12-19 10:35:00 Test Item Value Reference Range Interpretation Comments eGFR (test code = eGFR) 112 [facility]2018-12-19 10:35:00 Test Item Value Reference Range Interpretation Comments Creatinine Lvl (test code = Creatinine 0.56 0.50-1.40 Lvl) [facility]2018-12-19 10:35:00 Test Item Value Reference Range Interpretation Comments Phosphorus (test code = Phosphorus) 2.9 2.5-4.5 [facility]2018-12-19 10:35:00 Test Item Value Reference Range Interpretation Comments Glucose Lvl (test code = Glucose Lvl) 89 70-99 [facility]2018-12-19 10:35:00 Test Item Value Reference Range Interpretation Comments CO2 (test code = CO2) 25 24-32 [facility]2018-12-19 10:35:00 Test Item Value Reference Range Interpretation Comments BUN (test code = BUN) 9 7-22 [facility]2018-12-19 10:35:00 Test Item Value Reference Range Interpretation Comments Albumin Lvl (test code = Albumin Lvl) 2.1 3.5-5.0 [facility]2018-12-19 10:35:00 Test Item Value Reference Range Interpretation Comments Chloride Lvl (test code = Chloride Lvl) 111 95-109 [facility]2018-12-19 10:35:00 Test Item Value Reference Range Interpretation Comments Sodium Lvl (test code = Sodium Lvl) 144 135-145 [facility]2018-12-19 10:35:00 Test Item Value Reference Range Interpretation Comments Potassium Lvl (test code = Potassium 3.6 3.5-5.1 Lvl) [facility]2018-12-19 10:35:00 Test Item Value Reference Range Interpretation Comments AGAP (test code = AGAP) 11.6 10.0-20.0 [facility]WLHV[facility]QQDZ6460[facility]-50 10:35:00 Test Item Value Reference Range Interpretation Comments Hgb (test code = Hgb) 9.0 14.0-18.0 [facility]ZanqvgzRCCEXYDWKB9402-73-01 10:35:00 Test Item Value Reference Range Interpretation Comments RBC (test code = RBC) 3.53 4.70-6.10 [facility]neRqippiqEPNMWOKHRK3155-36-30 10:35:00 Test Item Value Reference Range Interpretation Comments MCV (test code = MCV) 81.1 80.0-94.0 [facility]neZyubdoaNXFEDOKVPZ1289-82-83 10:35:00 Test Item Value Reference Range Interpretation Comments Hct (test code = Hct) 28.6 42.0-54.0 [facility]neDoxuhogLXKCDHVALD1516-97-55 10:35:00 Test Item Value Reference Range Interpretation Comments WBC (test code = WBC) 6.9 3.7-10.4 [facility]neHohlkrtKZTQVEQQMO0379-99-70 10:35:00 Test Item Value Reference Range Interpretation Comments MPV (test code = MPV) 7.8 7.4-10.4 [facility]neJxvtqteWHMPQXVJRO2777-32-77 10:35:00 Test Item Value Reference Range Interpretation Comments Platelet (test code = Platelet) 294 133-450 [facility]neBcfebghTWTMMENTVK8108-35-77 10:35:00 Test Item Value Reference Range Interpretation Comments RDW (test code = RDW) 17.5 11.5-14.5 [facility]neZafmtknMNRMOMDPCQ3100-92-01 10:35:00 Test Item Value Reference Range Interpretation Comments MCHC (test code = MCHC) 31.7 32.0-36.0 [facility]neZihvlamZCATZPZUCO1724-95-75 10:35:00 Test Item Value Reference Range Interpretation Comments MCH (test code = MCH) 25.7 pg 27.0-31.0 [facility]neIpoyaljDCYSDUMASQ4785-35-04 10:35:00 Test Item Value Reference Range Interpretation Comments Lymphocytes (test code = Lymphocytes) 18.5 20.0-40.0 [facility]neAqcdppvHKCWFJLWVU3492-90-80 10:35:00 Test Item Value Reference Range Interpretation Comments Segs (test code = Segs) 67.0 45.0-75.0 [facility]nePpdjgnhDWRPUIYRPQ9343-29-78 10:35:00 Test Item Value Reference Range Interpretation Comments Monocytes (test code = Monocytes) 9.8 2.0-12.0 [facility]neStgigygSCMJSODIPL9786-03-37 10:35:00 Test Item Value Reference Range Interpretation Comments Basophils (test code = 1.0 See_Comment [Aut omated message] The Basophils) system which ge nerated this result tra nsmitted reference range : <=1.0. The reference r ondina was not used to int erpret this result as normal/abnormal . [facility]neVrqguqfVALDUWVLOI2688-07-93 10:35:00 Test Item Value Reference Range Interpretation Comments Eosinophils (test code = 3.7 See_Comment [A utomated message] The Eosinophils) system which ge nerated this result tra nsmitted reference range : <=4.0. The reference r ondina was not used to int erpret this result as normal/abnormal . [facility]nePwwoosdXUYEMHWFMN1972-77-19 10:35:00 Test Item Value Reference Range Interpretation Comments Monocytes # (test code 0.7 See_Comment [Aut omated message] The = Monocytes #) system which generated this result tra nsmitted reference range : <=0.8. The reference r ondina was not used to int erpret this result as normal/abnormal . [facility]neLbwxygtLWFWWYLPPB2839-94-99 10:35:00 Test Item Value Reference Range Interpretation Comments Lymphocytes # (test code = Lymphocytes 1.3 1.0-5.5 #) [facility]neFwuafouCMDTDNDYBJ8019-11-71 10:35:00 Test Item Value Reference Range Interpretation Comments Neutrophils # (test code = Neutrophils 4.6 1.5-8.1 #) [facility]neCnfrzwfMOEZPGZDPM6234-40-95 10:35:00 Test Item Value Reference Range Interpretation Comments Basophils # (test code 0.1 See_Comment [Aut omated message] The = Basophils #) system which generated this result tra nsmitted reference range : <=0.2. The reference r ondina was not used to int erpret this result as normal/abnormal . [facility]neQrevgwzKBQEXVQMYE2129-95-21 10:35:00 Test Item Value Reference Range Interpretation Comments Eosinophils # (test code 0.3 See_Comment [A utomated message] The = Eosinophils #) system wh h generated this result tra nsmitted reference range : <=0.5. The reference r ondina was not used to int erpret this result as normal/abnormal . [place] [id number] 10:35:00 Test Item Value Reference Range Interpretation Comments Vanco Tr (test code = Vanco Tr) 21.8 [place] [id number] 10:35:00 Test Item Value Reference Range Interpretation Comments Vanco Tr TND (test code = Vanco Tr 0500 1 TND) [facility]2018-12-19 10:35:00 Test Item Value Reference Range Interpretation Comments Calcium Lvl (test code = Calcium Lvl) 7.8 8.5-10.5 [facility]2018-12-19 10:35:00 Test Item Value Reference Range Interpretation Comments eGFR (test code = eGFR) 112 [facility]2018-12-19 10:35:00 Test Item Value Reference Range Interpretation Comments Creatinine Lvl (test code = Creatinine 0.56 0.50-1.40 Lvl) [facility]2018-12-19 10:35:00 Test Item Value Reference Range Interpretation Comments Phosphorus (test code = Phosphorus) 2.9 2.5-4.5 [facility]2018-12-19 10:35:00 Test Item Value Reference Range Interpretation Comments Glucose Lvl (test code = Glucose Lvl) 89 70-99 [facility]2018-12-19 10:35:00 Test Item Value Reference Range Interpretation Comments CO2 (test code = CO2) 25 24-32 [facility]2018-12-19 10:35:00 Test Item Value Reference Range Interpretation Comments BUN (test code = BUN) 9 7-22 [facility]2018-12-19 10:35:00 Test Item Value Reference Range Interpretation Comments Albumin Lvl (test code = Albumin Lvl) 2.1 3.5-5.0 [facility]2018-12-19 10:35:00 Test Item Value Reference Range Interpretation Comments Chloride Lvl (test code = Chloride Lvl) 111 95-109 [facility]2018-12-19 10:35:00 Test Item Value Reference Range Interpretation Comments Sodium Lvl (test code = Sodium Lvl) 144 135-145 [facility]2018-12-19 10:35:00 Test Item Value Reference Range Interpretation Comments Potassium Lvl (test code = Potassium 3.6 3.5-5.1 Lvl) [facility]2018-12-19 10:35:00 Test Item Value Reference Range Interpretation Comments AGAP (test code = AGAP) 11.6 10.0-20.0 [facility]neMxdxvwfOWONCLLJGO8107-87-10 10:35:00 Test Item Value Reference Range Interpretation Comments Hgb (test code = Hgb) 9.0 14.0-18.0 [facility]neEbjdhmzYTBQITGABL9342-18-27 10:35:00 Test Item Value Reference Range Interpretation Comments RBC (test code = RBC) 3.53 4.70-6.10 [facility]neDzlkotbPZUWARYSNS4849-75-02 10:35:00 Test Item Value Reference Range Interpretation Comments MCV (test code = MCV) 81.1 80.0-94.0 [facility]neZhflwadOCATPCLACQ0177-21-96 10:35:00 Test Item Value Reference Range Interpretation Comments Hct (test code = Hct) 28.6 42.0-54.0 [facility]neRkppvquPSGRQZQCHN1283-83-47 10:35:00 Test Item Value Reference Range Interpretation Comments WBC (test code = WBC) 6.9 3.7-10.4 [facility]neMumtkvuAURCPJHMMB9683-33-14 10:35:00 Test Item Value Reference Range Interpretation Comments MPV (test code = MPV) 7.8 7.4-10.4 [facility]neXnymppzRCRMZCDKPK1842-85-52 10:35:00 Test Item Value Reference Range Interpretation Comments Platelet (test code = Platelet) 294 133-450 [facility]neMhfoykhQFKWWBRBKM3354-33-95 10:35:00 Test Item Value Reference Range Interpretation Comments RDW (test code = RDW) 17.5 11.5-14.5 [facility]neFnnhmjkWWKDQTEGBM0174-73-11 10:35:00 Test Item Value Reference Range Interpretation Comments MCHC (test code = MCHC) 31.7 32.0-36.0 [facility]neEyxoyssOWAQYYLHMY5863-06-88 10:35:00 Test Item Value Reference Range Interpretation Comments MCH (test code = MCH) 25.7 pg 27.0-31.0 [facility]neJeszzdtSQWTXIKCAT5352-18-36 10:35:00 Test Item Value Reference Range Interpretation Comments Lymphocytes (test code = Lymphocytes) 18.5 20.0-40.0 [facility]neJsebxfjWVLPJHAQFX1817-69-74 10:35:00 Test Item Value Reference Range Interpretation Comments Segs (test code = Segs) 67.0 45.0-75.0 [facility]neYdnntrsEHJDGTVAVA0563-47-48 10:35:00 Test Item Value Reference Range Interpretation Comments Monocytes (test code = Monocytes) 9.8 2.0-12.0 [facility]neZspgflnGJDVSUUDZT7657-38-58 10:35:00 Test Item Value Reference Range Interpretation Comments Basophils (test code = 1.0 See_Comment [Aut omated message] The Basophils) system which ge nerated this result tra nsmitted reference range : <=1.0. The reference r ondina was not used to int erpret this result as normal/abnormal . [facility]neKtsvwodKCMUPKKMGF7463-52-22 10:35:00 Test Item Value Reference Range Interpretation Comments Eosinophils (test code = 3.7 See_Comment [A utomated message] The Eosinophils) system which ge nerated this result tra nsmitted reference range : <=4.0. The reference r ondina was not used to int erpret this result as normal/abnormal . [facility]burneRabetraAVIYMQNASY2603-42-26 10:35:00 Test Item Value Reference Range Interpretation Comments Monocytes # (test code 0.7 See_Comment [Aut omated message] The = Monocytes #) system which generated this result tra nsmitted reference range : <=0.8. The reference r ondina was not used to int erpret this result as normal/abnormal . [facility]neMzncqkeQXWNQPFYLL7946-32-50 10:35:00 Test Item Value Reference Range Interpretation Comments Lymphocytes # (test code = Lymphocytes 1.3 1.0-5.5 #) [id number] 10:35:00 Test Item Value Reference Range Interpretation Comments Neutrophils # (test code = Neutrophils 4.6 1.5-8.1 #) [facility]neQpxpljnEMWBZUVYRA0539-80-32 10:35:00 Test Item Value Reference Range Interpretation Comments Basophils # (test code 0.1 See_Comment [Aut omated message] The = Basophils #) system which generated this result tra nsmitted reference range : <=0.2. The reference r ondina was not used to int erpret this result as normal/abnormal . [place] [id number] 10:35:00 Test Item Value Reference Range Interpretation Comments Eosinophils # (test code 0.3 See_Comment [A utomated message] The = Eosinophils #) system whic h generated this result tra nsmitted reference range : <=0.5. The reference r ondina was not used to int erpret this result as normal/abnormal . [place] [id number] 10:35:00 Test Item Value Reference Range Interpretation Comments Vanco Tr (test code = Vanco Tr) 21.8 [facility]htobqjMRQTNJTHSM7736-39-86 10:35:00 Test Item Value Reference Range Interpretation Comments Vanco Tr TND (test code = Vanco Tr 0500 1 TND) [facility]2018-12-19 10:35:00 Test Item Value Reference Range Interpretation Comments Calcium Lvl (test code = Calcium Lvl) 7.8 8.5-10.5 [facility]2018-12-19 10:35:00 Test Item Value Reference Range Interpretation Comments eGFR (test code = eGFR) 112 [facility]2018-12-19 10:35:00 Test Item Value Reference Range Interpretation Comments Creatinine Lvl (test code = Creatinine 0.56 0.50-1.40 Lvl) [facility]2018-12-19 10:35:00 Test Item Value Reference Range Interpretation Comments Phosphorus (test code = Phosphorus) 2.9 2.5-4.5 [facility]2018-12-19 10:35:00 Test Item Value Reference Range Interpretation Comments Glucose Lvl (test code = Glucose Lvl) 89 70-99 [facility]2018-12-19 10:35:00 Test Item Value Reference Range Interpretation Comments CO2 (test code = CO2) 25 24-32 [facility]2018-12-19 10:35:00 Test Item Value Reference Range Interpretation Comments BUN (test code = BUN) 9 7-22 [facility]2018-12-19 10:35:00 Test Item Value Reference Range Interpretation Comments Albumin Lvl (test code = Albumin Lvl) 2.1 3.5-5.0 [facility]2018-12-19 10:35:00 Test Item Value Reference Range Interpretation Comments Chloride Lvl (test code = Chloride Lvl) 111 95-109 [facility]2018-12-19 10:35:00 Test Item Value Reference Range Interpretation Comments Sodium Lvl (test code = Sodium Lvl) 144 135-145 [facility]2018-12-19 10:35:00 Test Item Value Reference Range Interpretation Comments Potassium Lvl (test code = Potassium 3.6 3.5-5.1 Lvl) [facility]2018-12-19 10:35:00 Test Item Value Reference Range Interpretation Comments AGAP (test code = AGAP) 11.6 10.0-20.0 [facility]neVplftynEVIHCVZDIU9133-08-44 10:35:00 Test Item Value Reference Range Interpretation Comments Hgb (test code = Hgb) 9.0 14.0-18.0 [facility]nePsxbtvoVBKCKJRAXO6999-29-45 10:35:00 Test Item Value Reference Range Interpretation Comments RBC (test code = RBC) 3.53 4.70-6.10 [facility]neOvpnscoFVGKHLNJVK2397-58-66 10:35:00 Test Item Value Reference Range Interpretation Comments MCV (test code = MCV) 81.1 80.0-94.0 [facility]neNwlsvceSJDUKWQAJR4795-75-37 10:35:00 Test Item Value Reference Range Interpretation Comments Hct (test code = Hct) 28.6 42.0-54.0 [facility]neFfnyvggOBHTKGCYCR4438-22-89 10:35:00 Test Item Value Reference Range Interpretation Comments WBC (test code = WBC) 6.9 3.7-10.4 [facility]neZtylwncJKDDNQVMYX3734-28-72 10:35:00 Test Item Value Reference Range Interpretation Comments MPV (test code = MPV) 7.8 7.4-10.4 [facility]neDrhosdgZLYPLLWOTL7749-94-77 10:35:00 Test Item Value Reference Range Interpretation Comments Platelet (test code = Platelet) 294 133-450 [facility]neBxepzpxMOFHEISPIP9851-92-65 10:35:00 Test Item Value Reference Range Interpretation Comments RDW (test code = RDW) 17.5 11.5-14.5 [facility]neLsclxpeYMHJBOKIAV1540-52-68 10:35:00 Test Item Value Reference Range Interpretation Comments MCHC (test code = MCHC) 31.7 32.0-36.0 [place] [id number] 10:35:00 Test Item Value Reference Range Interpretation Comments MCH (test code = MCH) 25.7 pg 27.0-31.0 [facility]neQpicnalXPLMIKRKJI5350-38-53 10:35:00 Test Item Value Reference Range Interpretation Comments Lymphocytes (test code = Lymphocytes) 18.5 20.0-40.0 [facility]neZcvqrudMOKNWBSVNH6711-04-78 10:35:00 Test Item Value Reference Range Interpretation Comments Segs (test code = Segs) 67.0 45.0-75.0 [facility]neLbondcjIZWHZDNOBL5446-75-33 10:35:00 Test Item Value Reference Range Interpretation Comments Monocytes (test code = Monocytes) 9.8 2.0-12.0 [facility]neUejnbnjGOHNSTHWAF9952-56-15 10:35:00 Test Item Value Reference Range Interpretation Comments Basophils (test code = Basophils) 1.0 <=1.0 [facility]neItvfotwSJVQXNVAEA8189-69-75 10:35:00 Test Item Value Reference Range Interpretation Comments Eosinophils (test code = Eosinophils) 3.7 <=4.0 [facility]neKtqztdoIDYCNIQYPF8996-17-98 10:35:00 Test Item Value Reference Range Interpretation Comments Monocytes # (test code = Monocytes #) 0.7 <=0.8 [facility]neDjqfmdwMGMGEMYZNE7664-72-80 10:35:00 Test Item Value Reference Range Interpretation Comments Lymphocytes # (test code = Lymphocytes 1.3 1.0-5.5 #) [facility]neYyhqvufZOKQXHZYVL0866-36-40 10:35:00 Test Item Value Reference Range Interpretation Comments Neutrophils # (test code = Neutrophils 4.6 1.5-8.1 #) [facility]neGyxigozLRRBHVIICV1964-80-00 10:35:00 Test Item Value Reference Range Interpretation Comments Basophils # (test code = Basophils #) 0.1 <=0.2 [facility]neQnpyxbgXKUDBOVURD9351-34-01 10:35:00 Test Item Value Reference Range Interpretation Comments Eosinophils # (test code = Eosinophils 0.3 <=0.5 #) [place] [id number] 10:35:00 Test Item Value Reference Range Interpretation Comments Vanco Tr (test code = Vanco Tr) 21.8 [place] [id number] 10:35:00 Test Item Value Reference Range Interpretation Comments Vanco Tr TND (test code = Vanco Tr 0500 1 TND) [facility]2018-12-19 10:35:00 Test Item Value Reference Range Interpretation Comments Calcium Lvl (test code = Calcium Lvl) 7.8 8.5-10.5 [facility]2018-12-19 10:35:00 Test Item Value Reference Range Interpretation Comments eGFR (test code = eGFR) 112 [facility]2018-12-19 10:35:00 Test Item Value Reference Range Interpretation Comments Creatinine Lvl (test code = Creatinine 0.56 0.50-1.40 Lvl) [facility]2018-12-19 10:35:00 Test Item Value Reference Range Interpretation Comments Phosphorus (test code = Phosphorus) 2.9 2.5-4.5 [facility]2018-12-19 10:35:00 Test Item Value Reference Range Interpretation Comments Glucose Lvl (test code = Glucose Lvl) 89 70-99 [facility]2018-12-19 10:35:00 Test Item Value Reference Range Interpretation Comments CO2 (test code = CO2) 25 24-32 [facility]2018-12-19 10:35:00 Test Item Value Reference Range Interpretation Comments BUN (test code = BUN) 9 7-22 [facility]2018-12-19 10:35:00 Test Item Value Reference Range Interpretation Comments Albumin Lvl (test code = Albumin Lvl) 2.1 3.5-5.0 [facility]2018-12-19 10:35:00 Test Item Value Reference Range Interpretation Comments Chloride Lvl (test code = Chloride Lvl) 111 95-109 [facility]2018-12-19 10:35:00 Test Item Value Reference Range Interpretation Comments Sodium Lvl (test code = Sodium Lvl) 144 135-145 [facility]2018-12-19 10:35:00 Test Item Value Reference Range Interpretation Comments Potassium Lvl (test code = Potassium 3.6 3.5-5.1 Lvl) [facility]2018-12-19 10:35:00 Test Item Value Reference Range Interpretation Comments AGAP (test code = AGAP) 11.6 10.0-20.0 [facility][id number] 10:35:00 Test Item Value Reference Range Interpretation Comments Hgb (test code = Hgb) 9.0 14.0-18.0 [facility]neHfmpnkpINTJLEVDZV4346-82-42 10:35:00 Test Item Value Reference Range Interpretation Comments RBC (test code = RBC) 3.53 4.70-6.10 [facility]neLsmsumcETRRESPZUH2915-83-32 10:35:00 Test Item Value Reference Range Interpretation Comments MCV (test code = MCV) 81.1 80.0-94.0 [facility]neKbhqhhrZKWYMLEFHY2215-82-22 10:35:00 Test Item Value Reference Range Interpretation Comments Hct (test code = Hct) 28.6 42.0-54.0 [facility]neCprbdvrTGZJXFZMCP1337-41-93 10:35:00 Test Item Value Reference Range Interpretation Comments WBC (test code = WBC) 6.9 3.7-10.4 [facility]neBxhqbiyAVRXQMEBRA6889-30-81 10:35:00 Test Item Value Reference Range Interpretation Comments MPV (test code = MPV) 7.8 7.4-10.4 [facility]neFutuzfpIFOVLYJQTA5054-99-42 10:35:00 Test Item Value Reference Range Interpretation Comments Platelet (test code = Platelet) 294 133-450 [facility]neOmafrtcQKOKNCDTHC6361-89-56 10:35:00 Test Item Value Reference Range Interpretation Comments RDW (test code = RDW) 17.5 11.5-14.5 [id number] 10:35:00 Test Item Value Reference Range Interpretation Comments MCHC (test code = MCHC) 31.7 32.0-36.0 [facility]neHydxtiyXKSEZWRZTX9274-44-17 10:35:00 Test Item Value Reference Range Interpretation Comments MCH (test code = MCH) 25.7 pg 27.0-31.0 [facility]neQvyfawgFDKTMVCTIM7707-65-03 10:35:00 Test Item Value Reference Range Interpretation Comments Lymphocytes (test code = Lymphocytes) 18.5 20.0-40.0 [facility]neLfawfdqAEQRPYKUUY6202-27-55 10:35:00 Test Item Value Reference Range Interpretation Comments Segs (test code = Segs) 67.0 45.0-75.0 [facility]neIvyhpnfWURRIWDMZL5975-85-89 10:35:00 Test Item Value Reference Range Interpretation Comments Monocytes (test code = Monocytes) 9.8 2.0-12.0 [facility]neSnymdooRDVTVFKUHB7664-30-14 10:35:00 Test Item Value Reference Range Interpretation Comments Basophils (test code = 1.0 See_Comment [Aut omated message] The Basophils) system which ge nerated this result tra nsmitted reference range : <=1.0. The reference r ondina was not used to int erpret this result as normal/abnormal . [facility]neEbwyewoDMTJRQBXCL8670-96-58 10:35:00 Test Item Value Reference Range Interpretation Comments Eosinophils (test code = 3.7 See_Comment [A utomated message] The Eosinophils) system which ge nerated this result tra nsmitted reference range : <=4.0. The reference r ondina was not used to int erpret this result as normal/abnormal . [facility]neCyxdrccVZVGOMKFXE3407-30-70 10:35:00 Test Item Value Reference Range Interpretation Comments Monocytes # (test code 0.7 See_Comment [Aut omated message] The = Monocytes #) system which generated this result tra nsmitted reference range : <=0.8. The reference r ondina was not used to int erpret this result as normal/abnormal . [facility]QdjrnerAMCJXTFFPB4806-79-21 10:35:00 Test Item Value Reference Range Interpretation Comments Lymphocytes # (test code = Lymphocytes 1.3 1.0-5.5 #) [facility]TzwyfyyFHHTIMYELU5248-74-91 10:35:00 Test Item Value Reference Range Interpretation Comments Neutrophils # (test code = Neutrophils 4.6 1.5-8.1 #) [facility]NpjfgkdJPUGNASEAX9481-18-31 10:35:00 Test Item Value Reference Range Interpretation Comments Basophils # (test code 0.1 See_Comment [Aut omated message] The = Basophils #) system which generated this result tra nsmitted reference range : <=0.2. The reference r ondina was not used to int erpret this result as normal/abnormal . [facility]neBllbymkXDKPADSDOS1096-52-43 10:35:00 Test Item Value Reference Range Interpretation Comments Eosinophils # (test code 0.3 See_Comment [A utomated message] The = Eosinophils #) system wh h generated this result tra nsmitted reference range : <=0.5. The reference r ondina was not used to int erpret this result as normal/abnormal . [place] [id number] 10:35:00 Test Item Value Reference Range Interpretation Comments Vanco Tr (test code = Vanco Tr) 21.8 [place] [id number] 10:35:00 Test Item Value Reference Range Interpretation Comments Vanco Tr TND (test code = Vanco Tr 0500 1 TND) [facility]2018-12-19 10:35:00 Test Item Value Reference Range Interpretation Comments Calcium Lvl (test code = Calcium Lvl) 7.8 8.5-10.5 [facility]2018-12-19 10:35:00 Test Item Value Reference Range Interpretation Comments eGFR (test code = eGFR) 112 [facility]2018-12-19 10:35:00 Test Item Value Reference Range Interpretation Comments Creatinine Lvl (test code = Creatinine 0.56 0.50-1.40 Lvl) [facility]2018-12-19 10:35:00 Test Item Value Reference Range Interpretation Comments Phosphorus (test code = Phosphorus) 2.9 2.5-4.5 [facility]2018-12-19 10:35:00 Test Item Value Reference Range Interpretation Comments Glucose Lvl (test code = Glucose Lvl) 89 70-99 [facility]2018-12-19 10:35:00 Test Item Value Reference Range Interpretation Comments CO2 (test code = CO2) 25 24-32 [facility]2018-12-19 10:35:00 Test Item Value Reference Range Interpretation Comments BUN (test code = BUN) 9 7-22 [facility]2018-12-19 10:35:00 Test Item Value Reference Range Interpretation Comments Albumin Lvl (test code = Albumin Lvl) 2.1 3.5-5.0 [facility]2018-12-19 10:35:00 Test Item Value Reference Range Interpretation Comments Chloride Lvl (test code = Chloride Lvl) 111 95-109 [facility]2018-12-19 10:35:00 Test Item Value Reference Range Interpretation Comments Sodium Lvl (test code = Sodium Lvl) 144 135-145 [facility]2018-12-19 10:35:00 Test Item Value Reference Range Interpretation Comments Potassium Lvl (test code = Potassium 3.6 3.5-5.1 Lvl) [facility]2018-12-19 10:35:00 Test Item Value Reference Range Interpretation Comments AGAP (test code = AGAP) 11.6 10.0-20.0 [facility]nePwcnajcHRYMTBWCKT8745-74-25 10:35:00 Test Item Value Reference Range Interpretation Comments Hgb (test code = Hgb) 9.0 14.0-18.0 [facility]neSpzzwcuPKYLAJIHNH9028-84-63 10:35:00 Test Item Value Reference Range Interpretation Comments RBC (test code = RBC) 3.53 4.70-6.10 [facility]neQjsfyddQRZTJYQHFA3552-26-24 10:35:00 Test Item Value Reference Range Interpretation Comments MCV (test code = MCV) 81.1 80.0-94.0 [facility]neIrqjttwEVRGOEYUAN5657-62-98 10:35:00 Test Item Value Reference Range Interpretation Comments Hct (test code = Hct) 28.6 42.0-54.0 [facility]neIeozhhnPYDYTDHZZC5493-24-00 10:35:00 Test Item Value Reference Range Interpretation Comments WBC (test code = WBC) 6.9 3.7-10.4 [facility]neDpqrnqcEVUEQPMPOA0014-70-64 10:35:00 Test Item Value Reference Range Interpretation Comments MPV (test code = MPV) 7.8 7.4-10.4 [facility]neHztcvljUFSLPMPMEE8937-81-79 10:35:00 Test Item Value Reference Range Interpretation Comments Platelet (test code = Platelet) 294 133-450 [facility]neDfipeunOGILIBMVGS6237-77-68 10:35:00 Test Item Value Reference Range Interpretation Comments RDW (test code = RDW) 17.5 11.5-14.5 [facility]neNboetqrULHDNSFVGJ4689-99-84 10:35:00 Test Item Value Reference Range Interpretation Comments MCHC (test code = MCHC) 31.7 32.0-36.0 [facility]neLaxcexxKKHDCOIOXE1374-15-28 10:35:00 Test Item Value Reference Range Interpretation Comments MCH (test code = MCH) 25.7 pg 27.0-31.0 [facility]neHahpsopCPQZYQVRVL3102-92-89 10:35:00 Test Item Value Reference Range Interpretation Comments Lymphocytes (test code = Lymphocytes) 18.5 20.0-40.0 [facility]MtveejwDBVLHZGQLF2628-96-90 10:35:00 Test Item Value Reference Range Interpretation Comments Segs (test code = Segs) 67.0 45.0-75.0 [facility] HospitalPtuosnxKDXEZEHBVO0155-63-95 10:35:00 Test Item Value Reference Range Interpretation Comments Monocytes (test code = Monocytes) 9.8 2.0-12.0 [facility] HospitalQxemqbaFRUMGJSBBF5177-53-29 10:35:00 Test Item Value Reference Range Interpretation Comments Basophils (test code = Basophils) 1.0 <=1.0 [facility] HospitalWtmoaqfHYYSEJXDEP5370-72-72 10:35:00 Test Item Value Reference Range Interpretation Comments Eosinophils (test code = Eosinophils) 3.7 <=4.0 [facility] HospitalYkxgpwoXXDFVGCUZC2527-76-62 10:35:00 Test Item Value Reference Range Interpretation Comments Monocytes # (test code = Monocytes #) 0.7 <=0.8 [facility] HospitalCnyuzzwGJIGAPALFB2682-72-07 10:35:00 Test Item Value Reference Range Interpretation Comments Lymphocytes # (test code = Lymphocytes 1.3 1.0-5.5 #) [facility] HospitalOjcskilXPLMHJDKND2403-46-27 10:35:00 Test Item Value Reference Range Interpretation Comments Neutrophils # (test code = Neutrophils 4.6 1.5-8.1 #) [facility] HospitalBrrlnkmZYEJQQFTJZ4770-18-90 10:35:00 Test Item Value Reference Range Interpretation Comments Basophils # (test code = Basophils #) 0.1 <=0.2 [facility] HospitalNxrryqoEFSYKPKZWR3396-55-68 10:35:00 Test Item Value Reference Range Interpretation Comments Eosinophils # (test code = Eosinophils 0.3 <=0.5 #) [facility]RoejobmXEVOERUMLL4837-65-45 10:35:00 Test Item Value Reference Range Interpretation Comments Vanco Tr (test code = Vanco Tr) 21.8 [facility]ImevbnhNAWITSDTBY6483-81-76 10:35:00 Test Item Value Reference Range Interpretation Comments Vanco Tr TND (test code = Vanco Tr 0500 1 TND) [facility]GxtysonPKXLGVGXJGBZ7690-92-97 10:29:00 Test Item Value Reference Range Interpretation Comments AGAP (test code = AGAP) 11.4 10.0-20.0 [facility] HospitalNtvcvfqROUTGSXBTJWO8796-23-71 10:29:00 Test Item Value Reference Range Interpretation Comments Chloride Lvl (test code = Chloride Lvl) 111 95-109 [facility] HospitalHdhkaxmSDMIBJDBYRFM2823-42-41 10:29:00 Test Item Value Reference Range Interpretation Comments Sodium Lvl (test code = Sodium Lvl) 144 135-145 [facility] HospitalXotmlioHRUIWZMXGQAD0852-08-19 10:29:00 Test Item Value Reference Range Interpretation Comments Potassium Lvl (test code = Potassium 3.4 3.5-5.1 Lvl) [facility] HospitalOqsrndcQQCVUBYLLLWV7836-59-79 10:29:00 Test Item Value Reference Range Interpretation Comments Calcium Lvl (test code = Calcium Lvl) 7.6 8.5-10.5 [facility] HospitalCczqaiuUQNDJTAPNAAP3845-03-12 10:29:00 Test Item Value Reference Range Interpretation Comments Glucose Lvl (test code = Glucose Lvl) 85 70-99 [facility] HospitalGcqukusDQJQPWCTHWIR5773-76-38 10:29:00 Test Item Value Reference Range Interpretation Comments eGFR (test code = eGFR) 114 [facility] HospitalDaloegcKTUAARIETEXV5713-91-67 10:29:00 Test Item Value Reference Range Interpretation Comments Creatinine Lvl (test code = Creatinine 0.54 0.50-1.40 Lvl) [facility] HospitalOkyzysuHRUNICNUWJUL3409-28-22 10:29:00 Test Item Value Reference Range Interpretation Comments BUN (test code = BUN) 8 7-22 [facility] HospitalBpepvfmFGEPNWBDCOYE5849-87-04 10:29:00 Test Item Value Reference Range Interpretation Comments CO2 (test code = CO2) 25 24-32 [facility]neDfkmjkvPKJTXBTHJF2124-75-56 10:29:00 Test Item Value Reference Range Interpretation Comments Platelet (test code = Platelet) 275 133-450 [facility]neBjyelrpECMAOGXECB2942-56-42 10:29:00 Test Item Value Reference Range Interpretation Comments RDW (test code = RDW) 17.0 11.5-14.5 [facility]neWprjxasTGRMWAVJGF4513-62-01 10:29:00 Test Item Value Reference Range Interpretation Comments MCHC (test code = MCHC) 32.4 32.0-36.0 [facility]neNbyywbaLQDNTNEQWX3804-37-81 10:29:00 Test Item Value Reference Range Interpretation Comments MCH (test code = MCH) 26.1 pg 27.0-31.0 [facility]neOondiaxFTSKZEKPRD0087-39-89 10:29:00 Test Item Value Reference Range Interpretation Comments MCV (test code = MCV) 80.5 80.0-94.0 [facility]neRtbefpvAGBYLXJLSZ1675-79-78 10:29:00 Test Item Value Reference Range Interpretation Comments Hct (test code = Hct) 27.5 42.0-54.0 [facility]neVzrqmcnCFQQGGVKLP1631-53-70 10:29:00 Test Item Value Reference Range Interpretation Comments RBC (test code = RBC) 3.42 4.70-6.10 [facility]neSewzxjcXAXVKSBBMM5402-55-69 10:29:00 Test Item Value Reference Range Interpretation Comments Hgb (test code = Hgb) 8.9 14.0-18.0 [facility]neEzjjkqtYYTNUZQIQV0921-92-92 10:29:00 Test Item Value Reference Range Interpretation Comments WBC (test code = WBC) 6.9 3.7-10.4 [facility]neCjsgcwjFZCGALVBYJ0241-93-27 10:29:00 Test Item Value Reference Range Interpretation Comments MPV (test code = MPV) 8.0 7.4-10.4 [facility]neEpakbjpTDGZHJJGWY9971-98-21 10:29:00 Test Item Value Reference Range Interpretation Comments Monocytes # (test code 0.7 See_Comment [Aut omated message] The = Monocytes #) system which generated this result tra nsmitted reference range : <=0.8. The reference r ondina was not used to int erpret this result as normal/abnormal . [facility]neVdayeqxLYTBLIWKAI9499-00-17 10:29:00 Test Item Value Reference Range Interpretation Comments Lymphocytes # (test code = Lymphocytes 1.6 1.0-5.5 #) [facility]neYfiuxyyXOUTWWKEDA7538-80-70 10:29:00 Test Item Value Reference Range Interpretation Comments Eosinophils # (test code 0.3 See_Comment [A utomated message] The = Eosinophils #) system whic h generated this result tra nsmitted reference range : <=0.5. The reference r ondina was not used to int erpret this result as normal/abnormal . [facility]neUzdymvhHWMJDOUIJY1328-75-93 10:29:00 Test Item Value Reference Range Interpretation Comments Lymphocytes (test code = Lymphocytes) 23.6 20.0-40.0 [facility]neDyvbdjzLSTELBOGHL4434-67-32 10:29:00 Test Item Value Reference Range Interpretation Comments Monocytes (test code = Monocytes) 10.1 2.0-12.0 [facility]neLeriwsnCJPBETRBRF9034-92-81 10:29:00 Test Item Value Reference Range Interpretation Comments Eosinophils (test code = 3.9 See_Comment [A utomated message] The Eosinophils) system which ge nerated this result tra nsmitted reference range : <=4.0. The reference r ondina was not used to int erpret this result as normal/abnormal . [facility]neYqxjvqnVQQAWHJZAX5605-47-59 10:29:00 Test Item Value Reference Range Interpretation Comments Basophils (test code = 0.7 See_Comment [Aut omated message] The Basophils) system which ge nerated this result tra nsmitted reference range : <=1.0. The reference r ondina was not used to int erpret this result as normal/abnormal . [facility]neNryrwaeGSVBXUWCLA1579-88-53 10:29:00 Test Item Value Reference Range Interpretation Comments Neutrophils # (test code = Neutrophils 4.2 1.5-8.1 #) [facility]neGkzvpubXYJPSYIVBC1140-35-73 10:29:00 Test Item Value Reference Range Interpretation Comments Segs (test code = Segs) 61.7 45.0-75.0 [facility] HospitalOgrrcppBUKGOKFAHOBL1488-32-77 10:29:00 Test Item Value Reference Range Interpretation Comments AGAP (test code = AGAP) 11.4 10.0-20.0 [facility] HospitalPxwbsyeXZDYRAWQDAQW1017-23-56 10:29:00 Test Item Value Reference Range Interpretation Comments Chloride Lvl (test code = Chloride Lvl) 111 95-109 [facility] HospitalYhqtzayPCTMWJVZTROI1791-56-49 10:29:00 Test Item Value Reference Range Interpretation Comments Sodium Lvl (test code = Sodium Lvl) 144 135-145 [facility] HospitalTavmjthNOIZJHYGPNSG7634-00-04 10:29:00 Test Item Value Reference Range Interpretation Comments Potassium Lvl (test code = Potassium 3.4 3.5-5.1 Lvl) [facility] HospitalDnyyyezWRGPDIXLKFJU8965-08-01 10:29:00 Test Item Value Reference Range Interpretation Comments Calcium Lvl (test code = Calcium Lvl) 7.6 8.5-10.5 [facility] HospitalQnbkizaFPBUAKZIQQUG3112-99-08 10:29:00 Test Item Value Reference Range Interpretation Comments Glucose Lvl (test code = Glucose Lvl) 85 70-99 [facility] HospitalRpyismpUCETKCVSRTCW2119-81-88 10:29:00 Test Item Value Reference Range Interpretation Comments eGFR (test code = eGFR) 114 [facility] HospitalTvmcxemJXIWTICSKGAX9314-74-35 10:29:00 Test Item Value Reference Range Interpretation Comments Creatinine Lvl (test code = Creatinine 0.54 0.50-1.40 Lvl) [facility] HospitalEdzoociLXSFFTAEOAXR4283-17-63 10:29:00 Test Item Value Reference Range Interpretation Comments BUN (test code = BUN) 8 7-22 [facility] HospitalWulcigsDVKFLMBPHRJP5329-88-21 10:29:00 Test Item Value Reference Range Interpretation Comments CO2 (test code = CO2) 25 24-32 [facility]neFodjwcsMBQEBNEXTP0670-26-04 10:29:00 Test Item Value Reference Range Interpretation Comments Platelet (test code = Platelet) 275 133-450 [facility]neXxrkchrUQDDYOHZNT2399-41-47 10:29:00 Test Item Value Reference Range Interpretation Comments RDW (test code = RDW) 17.0 11.5-14.5 [facility]neGgtdzosAFTDGORQBI9881-21-54 10:29:00 Test Item Value Reference Range Interpretation Comments MCHC (test code = MCHC) 32.4 32.0-36.0 [facility]neXehtplvUEJXRBJHZN2368-62-25 10:29:00 Test Item Value Reference Range Interpretation Comments MCH (test code = MCH) 26.1 pg 27.0-31.0 [facility]neUebywfkFVHKPNCPLV6441-45-18 10:29:00 Test Item Value Reference Range Interpretation Comments MCV (test code = MCV) 80.5 80.0-94.0 [facility]neDnbmgslVFHKELZBNF6055-66-45 10:29:00 Test Item Value Reference Range Interpretation Comments Hct (test code = Hct) 27.5 42.0-54.0 [facility]neJjsfpgxMNDLCNXTFY9871-17-29 10:29:00 Test Item Value Reference Range Interpretation Comments RBC (test code = RBC) 3.42 4.70-6.10 [facility]neXymassaLNVDSFDZMR6560-77-98 10:29:00 Test Item Value Reference Range Interpretation Comments Hgb (test code = Hgb) 8.9 14.0-18.0 [facility]neGmddwahNFUFMQYJUM1576-16-65 10:29:00 Test Item Value Reference Range Interpretation Comments WBC (test code = WBC) 6.9 3.7-10.4 [facility]nePwewalcCTCEADDYTP6303-76-30 10:29:00 Test Item Value Reference Range Interpretation Comments MPV (test code = MPV) 8.0 7.4-10.4 [facility]neCiwpsfuMWGATOVDPO5343-81-85 10:29:00 Test Item Value Reference Range Interpretation Comments Monocytes # (test code 0.7 See_Comment [Aut omated message] The = Monocytes #) system which generated this result tra nsmitted reference range : <=0.8. The reference r ondina was not used to int erpret this result as normal/abnormal . [facility]neCqtfwdaCXYUUABLWA7459-61-82 10:29:00 Test Item Value Reference Range Interpretation Comments Lymphocytes # (test code = Lymphocytes 1.6 1.0-5.5 #) [facility]neIauztasSJSLYTZXJA9428-44-38 10:29:00 Test Item Value Reference Range Interpretation Comments Eosinophils # (test code 0.3 See_Comment [A utomated message] The = Eosinophils #) system whic h generated this result tra nsmitted reference range : <=0.5. The reference r ondina was not used to int erpret this result as normal/abnormal . [facility]neFbotwapZPNAZOYWXH4190-97-14 10:29:00 Test Item Value Reference Range Interpretation Comments Lymphocytes (test code = Lymphocytes) 23.6 20.0-40.0 [facility]neJeygxfmCQKOILQUTJ1122-00-20 10:29:00 Test Item Value Reference Range Interpretation Comments Monocytes (test code = Monocytes) 10.1 2.0-12.0 [facility]neXeeftidNMYIEYGYNU6280-33-96 10:29:00 Test Item Value Reference Range Interpretation Comments Eosinophils (test code = 3.9 See_Comment [A utomated message] The Eosinophils) system which ge nerated this result tra nsmitted reference range : <=4.0. The reference r ondina was not used to int erpret this result as normal/abnormal . [facility]neYltvnneGPARFFXREO4333-28-03 10:29:00 Test Item Value Reference Range Interpretation Comments Basophils (test code = 0.7 See_Comment [Aut omated message] The Basophils) system which ge nerated this result tra nsmitted reference range : <=1.0. The reference r ondina was not used to int erpret this result as normal/abnormal . [facility]neKrhlmbqBOWQDVRGKV6375-11-38 10:29:00 Test Item Value Reference Range Interpretation Comments Neutrophils # (test code = Neutrophils 4.2 1.5-8.1 #) [facility]neJjpwkzjLIOQUEDJGF3583-78-26 10:29:00 Test Item Value Reference Range Interpretation Comments Segs (test code = Segs) 61.7 45.0-75.0 [facility] HospitalZyypgzpQDAFNVWUUPZI6680-00-67 10:29:00 Test Item Value Reference Range Interpretation Comments AGAP (test code = AGAP) 11.4 10.0-20.0 [facility] HospitalAhjingfNELLNVUOWIKV1465-26-38 10:29:00 Test Item Value Reference Range Interpretation Comments Chloride Lvl (test code = Chloride Lvl) 111 95-109 [facility] HospitalNvdymviIIEDEEYQDIAT6368-71-81 10:29:00 Test Item Value Reference Range Interpretation Comments Sodium Lvl (test code = Sodium Lvl) 144 135-145 [facility] HospitalIdngvdqLOJLPGRPLXCA6517-09-42 10:29:00 Test Item Value Reference Range Interpretation Comments Potassium Lvl (test code = Potassium 3.4 3.5-5.1 Lvl) [facility] HospitalVdvxyucLTUYRZLDSADW9170-82-28 10:29:00 Test Item Value Reference Range Interpretation Comments Calcium Lvl (test code = Calcium Lvl) 7.6 8.5-10.5 [facility] HospitalFspeplrOVDEUMOVALYB0939-53-19 10:29:00 Test Item Value Reference Range Interpretation Comments Glucose Lvl (test code = Glucose Lvl) 85 70-99 [facility] HospitalDpmfxkxCHXASKXKHXDJ7019-72-31 10:29:00 Test Item Value Reference Range Interpretation Comments eGFR (test code = eGFR) 114 [facility] HospitalUgndtwgIEIMZCNRTPZJ2808-51-07 10:29:00 Test Item Value Reference Range Interpretation Comments Creatinine Lvl (test code = Creatinine 0.54 0.50-1.40 Lvl) [facility] HospitalWotnapiNUNVFRBBVVVL1120-54-90 10:29:00 Test Item Value Reference Range Interpretation Comments BUN (test code = BUN) 8 7-22 [facility] HospitalHqgxgpuDMCFXSTUBTHH1656-07-88 10:29:00 Test Item Value Reference Range Interpretation Comments CO2 (test code = CO2) 25 24-32 [facility]neKjwagcpKWPUHCRLJY3052-49-78 10:29:00 Test Item Value Reference Range Interpretation Comments Platelet (test code = Platelet) 275 133-450 [facility]neWjnszraGIVMBHYBEM6966-77-02 10:29:00 Test Item Value Reference Range Interpretation Comments RDW (test code = RDW) 17.0 11.5-14.5 [facility]neXkjsecqXSCSIVGPOF4613-67-30 10:29:00 Test Item Value Reference Range Interpretation Comments MCHC (test code = MCHC) 32.4 32.0-36.0 [facility]neWnnfvabXNVHFPTTAD5960-14-72 10:29:00 Test Item Value Reference Range Interpretation Comments MCH (test code = MCH) 26.1 pg 27.0-31.0 [facility]neLkrybarRJUXWSIFYT7971-40-92 10:29:00 Test Item Value Reference Range Interpretation Comments MCV (test code = MCV) 80.5 80.0-94.0 [facility]neTcmqedkPCPGQDEYIZ0773-49-03 10:29:00 Test Item Value Reference Range Interpretation Comments Hct (test code = Hct) 27.5 42.0-54.0 [facility]neNilpcdhXGIYXKPEZH8810-82-41 10:29:00 Test Item Value Reference Range Interpretation Comments RBC (test code = RBC) 3.42 4.70-6.10 [facility]neSjwogiyQAWDMONEIV0407-05-27 10:29:00 Test Item Value Reference Range Interpretation Comments Hgb (test code = Hgb) 8.9 14.0-18.0 [facility]nePpchlcnRKPQCQXMEM9387-33-10 10:29:00 Test Item Value Reference Range Interpretation Comments WBC (test code = WBC) 6.9 3.7-10.4 [facility]neMeeueooKWZMQPFSUU4386-82-84 10:29:00 Test Item Value Reference Range Interpretation Comments MPV (test code = MPV) 8.0 7.4-10.4 [facility]neSlozcdfASRBOAHSTB1939-18-72 10:29:00 Test Item Value Reference Range Interpretation Comments Monocytes # (test code 0.7 See_Comment [Aut omated message] The = Monocytes #) system which generated this result tra nsmitted reference range : <=0.8. The reference r ondina was not used to int erpret this result as normal/abnormal . [facility]neZuauompDWUZKYRVWC2536-42-02 10:29:00 Test Item Value Reference Range Interpretation Comments Lymphocytes # (test code = Lymphocytes 1.6 1.0-5.5 #) [facility]neOezdvieBEDLBOKVXS0885-64-93 10:29:00 Test Item Value Reference Range Interpretation Comments Eosinophils # (test code 0.3 See_Comment [A utomated message] The = Eosinophils #) system whic h generated this result tra nsmitted reference range : <=0.5. The reference r ondina was not used to int erpret this result as normal/abnormal . [facility]neCjnmrwePOKCDSOGHC7415-10-23 10:29:00 Test Item Value Reference Range Interpretation Comments Lymphocytes (test code = Lymphocytes) 23.6 20.0-40.0 [facility]neMhvusxxQQPJDGUUNY0546-19-06 10:29:00 Test Item Value Reference Range Interpretation Comments Monocytes (test code = Monocytes) 10.1 2.0-12.0 [facility] [place]WtuzndeOMONNDRCNZ5990-54-94 10:29:00 Test Item Value Reference Range Interpretation Comments Eosinophils (test code = 3.9 See_Comment [A utomated message] The Eosinophils) system which ge nerated this result tra nsmitted reference range : <=4.0. The reference r ondina was not used to int erpret this result as normal/abnormal . [facility] [place]neVvmzdjvWQOYYTFGVT2135-06-89 10:29:00 Test Item Value Reference Range Interpretation Comments Basophils (test code = 0.7 See_Comment [Aut omated message] The Basophils) system which ge nerated this result tra nsmitted reference range : <=1.0. The reference r ondina was not used to int erpret this result as normal/abnormal . [facility] CleburneTbrcibwVDPJSRMUEH8352-91-45 10:29:00 Test Item Value Reference Range Interpretation Comments Neutrophils # (test code = Neutrophils 4.2 1.5-8.1 #) [facility] CleburneGqqiduvGLSAJJLWBI2855-22-69 10:29:00 Test Item Value Reference Range Interpretation Comments Segs (test code = Segs) 61.7 45.0-75.0 [facility]HejegyeQYCSCPQRFBBS5086-72-33 10:29:00 Test Item Value Reference Range Interpretation Comments AGAP (test code = AGAP) 11.4 10.0-20.0 [facility] HospitalJattljuXISQSIKUNPFY9080-13-07 10:29:00 Test Item Value Reference Range Interpretation Comments Chloride Lvl (test code = Chloride Lvl) 111 95-109 [facility] HospitalMnhlymrQLEMNFTYZZYZ6447-72-32 10:29:00 Test Item Value Reference Range Interpretation Comments Sodium Lvl (test code = Sodium Lvl) 144 135-145 [facility] HospitalDuxeqgqHGTOGTBSJPXR3530-53-39 10:29:00 Test Item Value Reference Range Interpretation Comments Potassium Lvl (test code = Potassium 3.4 3.5-5.1 Lvl) [facility] HospitalEkygepfOFPPYADUNEDS5425-43-67 10:29:00 Test Item Value Reference Range Interpretation Comments Calcium Lvl (test code = Calcium Lvl) 7.6 8.5-10.5 [facility] HospitalEnvyhrvSKXLFMJLIPBA6187-07-96 10:29:00 Test Item Value Reference Range Interpretation Comments Glucose Lvl (test code = Glucose Lvl) 85 70-99 [facility] HospitalQgletdyCNMESROHJKAC3045-95-39 10:29:00 Test Item Value Reference Range Interpretation Comments eGFR (test code = eGFR) 114 [facility] HospitalConpmjmAWSWBKRTJUPB3571-63-90 10:29:00 Test Item Value Reference Range Interpretation Comments Creatinine Lvl (test code = Creatinine 0.54 0.50-1.40 Lvl) [facility] HospitalKxcotbqRNOIDIXWWAYW1250-15-98 10:29:00 Test Item Value Reference Range Interpretation Comments BUN (test code = BUN) 8 7-22 [facility] HospitalOexctciUINTSMRPAPRD4049-74-73 10:29:00 Test Item Value Reference Range Interpretation Comments CO2 (test code = CO2) 25 24-32 [facility] CleburneDhamhnjZQFMKCCPFI5411-73-71 10:29:00 Test Item Value Reference Range Interpretation Comments Platelet (test code = Platelet) 275 133-450 [facility] Cle[place]neWgievjvYYKRACDQYB3752-55-44 10:29:00 Test Item Value Reference Range Interpretation Comments RDW (test code = RDW) 17.0 11.5-14.5 [facility] Cle[place]neIpdnwetLPZGZUXCAB8963-06-76 10:29:00 Test Item Value Reference Range Interpretation Comments MCHC (test code = MCHC) 32.4 32.0-36.0 [facility] Cle[place]neAcsinswQWGUSXPKIQ9609-03-02 10:29:00 Test Item Value Reference Range Interpretation Comments MCH (test code = MCH) 26.1 pg 27.0-31.0 [facility] CleburneBxnkyhqCOHGUKBBFY1789-50-59 10:29:00 Test Item Value Reference Range Interpretation Comments MCV (test code = MCV) 80.5 80.0-94.0 [facility] Cle[place]neQevhlcdCUEORCGCWJ0493-66-31 10:29:00 Test Item Value Reference Range Interpretation Comments Hct (test code = Hct) 27.5 42.0-54.0 [facility] CleburneRvwnxnmLBINNPGILP0224-70-44 10:29:00 Test Item Value Reference Range Interpretation Comments RBC (test code = RBC) 3.42 4.70-6.10 [facility] Cle[place]neKxuuejnEQGUKPUMVJ9186-46-26 10:29:00 Test Item Value Reference Range Interpretation Comments Hgb (test code = Hgb) 8.9 14.0-18.0 [facility] CleburneDfmrwrlFKMWTYOVTS6505-03-87 10:29:00 Test Item Value Reference Range Interpretation Comments WBC (test code = WBC) 6.9 3.7-10.4 [facility] Cle[place]neAxkphrlLMCYHCHSJZ9688-17-43 10:29:00 Test Item Value Reference Range Interpretation Comments MPV (test code = MPV) 8.0 7.4-10.4 [facility] CleburneCqowsxrQUFKLETDLB2460-55-10 10:29:00 Test Item Value Reference Range Interpretation Comments Monocytes # (test code = Monocytes #) 0.7 <=0.8 [facility] CleburneDhhevdwBXHKQKKVNZ3822-95-56 10:29:00 Test Item Value Reference Range Interpretation Comments Lymphocytes # (test code = Lymphocytes 1.6 1.0-5.5 #) [facility] [place]neXtnvnjySZLHVTASLF3115-01-92 10:29:00 Test Item Value Reference Range Interpretation Comments Eosinophils # (test code = Eosinophils 0.3 <=0.5 #) [facility] Cle[place]nePbvqlftCKTUQCVOYM0476-78-76 10:29:00 Test Item Value Reference Range Interpretation Comments Lymphocytes (test code = Lymphocytes) 23.6 20.0-40.0 [facility] Cle[place]neMekattyPNXZQFFRET6858-38-87 10:29:00 Test Item Value Reference Range Interpretation Comments Monocytes (test code = Monocytes) 10.1 2.0-12.0 [facility] Cle[place]neYeksazfCZXNMXHOJM5460-88-81 10:29:00 Test Item Value Reference Range Interpretation Comments Eosinophils (test code = Eosinophils) 3.9 <=4.0 [facility] Cle[place]neFlbojjfQBMRMULDHM5583-01-81 10:29:00 Test Item Value Reference Range Interpretation Comments Basophils (test code = Basophils) 0.7 <=1.0 [facility] Cle[place]neFqzyyitNNVXTCTMZC6804-55-72 10:29:00 Test Item Value Reference Range Interpretation Comments Neutrophils # (test code = Neutrophils 4.2 1.5-8.1 #) [facility] Cle[place]neTyfhpnnNODDBEOTZZ8014-76-87 10:29:00 Test Item Value Reference Range Interpretation Comments Segs (test code = Segs) 61.7 45.0-75.0 [facility] HospitalAabscatTDTKATTIIXNY0642-53-05 10:29:00 Test Item Value Reference Range Interpretation Comments AGAP (test code = AGAP) 11.4 10.0-20.0 [facility] HospitalAmjovmjQXNQGTQANUUS9301-50-27 10:29:00 Test Item Value Reference Range Interpretation Comments Chloride Lvl (test code = Chloride Lvl) 111 95-109 [facility] HospitalUbjmmmuHYRWFCZJNBRS0765-84-48 10:29:00 Test Item Value Reference Range Interpretation Comments Sodium Lvl (test code = Sodium Lvl) 144 135-145 [facility] HospitalJrnslhjNWOKTZVLAOCL8252-97-79 10:29:00 Test Item Value Reference Range Interpretation Comments Potassium Lvl (test code = Potassium 3.4 3.5-5.1 Lvl) [facility] HospitalGpxykovWIYSDDKAOHJU5534-12-73 10:29:00 Test Item Value Reference Range Interpretation Comments Calcium Lvl (test code = Calcium Lvl) 7.6 8.5-10.5 [facility] HospitalFjrevmgZMEOSUNDCPDL3087-12-60 10:29:00 Test Item Value Reference Range Interpretation Comments Glucose Lvl (test code = Glucose Lvl) 85 70-99 [facility] HospitalCcnlrayHPWWACXZFHIK5697-99-23 10:29:00 Test Item Value Reference Range Interpretation Comments eGFR (test code = eGFR) 114 [facility] HospitalReinknqTZDCUYXKPBPU2779-84-93 10:29:00 Test Item Value Reference Range Interpretation Comments Creatinine Lvl (test code = Creatinine 0.54 0.50-1.40 Lvl) [facility] HospitalPahoctcIIWHJNQHTZGY4091-96-17 10:29:00 Test Item Value Reference Range Interpretation Comments BUN (test code = BUN) 8 7-22 [facility] HospitalTmbiehvJQTQKCITVDXG4784-38-75 10:29:00 Test Item Value Reference Range Interpretation Comments CO2 (test code = CO2) 25 24-32 [facility] CleburneIhxergoXPHBGCCFNE7072-11-19 10:29:00 Test Item Value Reference Range Interpretation Comments Platelet (test code = Platelet) 275 133-450 [facility] CleburneBuxneurOXNCSISAVJ5644-10-34 10:29:00 Test Item Value Reference Range Interpretation Comments RDW (test code = RDW) 17.0 11.5-14.5 [facility] CleburneGmhsyurZEXHVCOUII0281-72-62 10:29:00 Test Item Value Reference Range Interpretation Comments MCHC (test code = MCHC) 32.4 32.0-36.0 [facility] CleburneCnasfssALNMDWSPWS9092-13-67 10:29:00 Test Item Value Reference Range Interpretation Comments MCH (test code = MCH) 26.1 pg 27.0-31.0 [facility] Cle[place]neRkiwrpyYPZJUDMQBT5525-67-74 10:29:00 Test Item Value Reference Range Interpretation Comments MCV (test code = MCV) 80.5 80.0-94.0 [facility] Cle[place]nePlezqbvGDYBXQLTXU7067-30-33 10:29:00 Test Item Value Reference Range Interpretation Comments Hct (test code = Hct) 27.5 42.0-54.0 [facility] Cle[place]neAfyvounJHLUIWJDJQ5618-03-75 10:29:00 Test Item Value Reference Range Interpretation Comments RBC (test code = RBC) 3.42 4.70-6.10 [facility] Cle[place]neIsjythdTQBTPJCKWE7013-83-86 10:29:00 Test Item Value Reference Range Interpretation Comments Hgb (test code = Hgb) 8.9 14.0-18.0 [facility] [place]neOwgrxuvEFVGBUMDVP9353-74-87 10:29:00 Test Item Value Reference Range Interpretation Comments WBC (test code = WBC) 6.9 3.7-10.4 [facility] Cle[place]neAfkurltEXQMNSGUEL4459-99-29 10:29:00 Test Item Value Reference Range Interpretation Comments MPV (test code = MPV) 8.0 7.4-10.4 [facility] Cle[place]neIulimqdNHZPBREUKP9561-48-06 10:29:00 Test Item Value Reference Range Interpretation Comments Monocytes # (test code 0.7 See_Comment [Aut omated message] The = Monocytes #) system which generated this result tra nsmitted reference range : <=0.8. The reference r ondina was not used to int erpret this result as normal/abnormal . [facility] [place]neOnxfhzjCTKGFPBITV7185-00-87 10:29:00 Test Item Value Reference Range Interpretation Comments Lymphocytes # (test code = Lymphocytes 1.6 1.0-5.5 #) [facility] CleburneZzsrgdjXMWOYCKOEB2323-20-37 10:29:00 Test Item Value Reference Range Interpretation Comments Eosinophils # (test code 0.3 See_Comment [A utomated message] The = Eosinophils #) system whic h generated this result tra nsmitted reference range : <=0.5. The reference r ondina was not used to int erpret this result as normal/abnormal . [facility] Cle[place]neXunquwoEWHXLMJLVB6722-48-42 10:29:00 Test Item Value Reference Range Interpretation Comments Lymphocytes (test code = Lymphocytes) 23.6 20.0-40.0 [facility] CleburneDkxgqccCSZLQQVCQM9718-97-08 10:29:00 Test Item Value Reference Range Interpretation Comments Monocytes (test code = Monocytes) 10.1 2.0-12.0 [facility] [place]neMfhcddiYMMDGQOOWD5309-93-41 10:29:00 Test Item Value Reference Range Interpretation Comments Eosinophils (test code = 3.9 See_Comment [A utomated message] The Eosinophils) system which ge nerated this result tra nsmitted reference range : <=4.0. The reference r ondina was not used to int erpret this result as normal/abnormal . [facility] Cle[place]neDbhgqatFQBVIXBVML2525-90-88 10:29:00 Test Item Value Reference Range Interpretation Comments Basophils (test code = 0.7 See_Comment [Aut omated message] The Basophils) system which ge nerated this result tra nsmitted reference range : <=1.0. The reference r ondina was not used to int erpret this result as normal/abnormal . [facility] CleburneBhilhjiZFAIYGBNHU0264-68-08 10:29:00 Test Item Value Reference Range Interpretation Comments Neutrophils # (test code = Neutrophils 4.2 1.5-8.1 #) [facility] Cle[place]neIudngfpGHJJXDXFJK1531-38-06 10:29:00 Test Item Value Reference Range Interpretation Comments Segs (test code = Segs) 61.7 45.0-75.0 [facility] HospitalChjzsypKLOUVTNDBLTA2112-37-51 10:29:00 Test Item Value Reference Range Interpretation Comments AGAP (test code = AGAP) 11.4 10.0-20.0 [facility] HospitalFucuivjTLYNNHKKGBFQ8729-69-46 10:29:00 Test Item Value Reference Range Interpretation Comments Chloride Lvl (test code = Chloride Lvl) 111 95-109 [facility] HospitalEmhhpmsNIOXPTSMCMMW1760-45-50 10:29:00 Test Item Value Reference Range Interpretation Comments Sodium Lvl (test code = Sodium Lvl) 144 135-145 [facility] HospitalZfdwxjiGBLKDMXDFVEU8363-63-53 10:29:00 Test Item Value Reference Range Interpretation Comments Potassium Lvl (test code = Potassium 3.4 3.5-5.1 Lvl) [facility] HospitalKxkagvmYYPCSCDVYKXZ6835-19-15 10:29:00 Test Item Value Reference Range Interpretation Comments Calcium Lvl (test code = Calcium Lvl) 7.6 8.5-10.5 [facility] HospitalYipwmbsRVKOSGBVCUBX7342-96-62 10:29:00 Test Item Value Reference Range Interpretation Comments Glucose Lvl (test code = Glucose Lvl) 85 70-99 [facility] HospitalBhhiwmfMSPKVQQUMKJZ3620-34-29 10:29:00 Test Item Value Reference Range Interpretation Comments eGFR (test code = eGFR) 114 [facility] HospitalXzxkqmbVYGNJXIRIVVV7367-45-03 10:29:00 Test Item Value Reference Range Interpretation Comments Creatinine Lvl (test code = Creatinine 0.54 0.50-1.40 Lvl) [facility] HospitalSkpjkdbQRZPGHYVQVEC6264-88-30 10:29:00 Test Item Value Reference Range Interpretation Comments BUN (test code = BUN) 8 7-22 [facility] HospitalTaqowzvRKTZPVPFTREN5497-67-49 10:29:00 Test Item Value Reference Range Interpretation Comments CO2 (test code = CO2) 25 24-32 [facility] CleburneNwlqzesCGAPMBIBUU4762-52-93 10:29:00 Test Item Value Reference Range Interpretation Comments Platelet (test code = Platelet) 275 133-450 [facility] CleburneRnxgdljCLWFLRHGSG5153-87-28 10:29:00 Test Item Value Reference Range Interpretation Comments RDW (test code = RDW) 17.0 11.5-14.5 [facility] CleburneTjkrjgvHGOJEMNRKE9798-54-38 10:29:00 Test Item Value Reference Range Interpretation Comments MCHC (test code = MCHC) 32.4 32.0-36.0 [facility] CleburneHunzfgaMNHGVPIBCY8911-72-52 10:29:00 Test Item Value Reference Range Interpretation Comments MCH (test code = MCH) 26.1 pg 27.0-31.0 [facility] Cle[place]neIgpfqyjKYTTHZXBMJ5026-41-08 10:29:00 Test Item Value Reference Range Interpretation Comments MCV (test code = MCV) 80.5 80.0-94.0 [facility] Cle[place]neVensmezKJFEBOWKLN8929-08-83 10:29:00 Test Item Value Reference Range Interpretation Comments Hct (test code = Hct) 27.5 42.0-54.0 [facility] CleburneWubsmboOASNAUZZVI6150-33-05 10:29:00 Test Item Value Reference Range Interpretation Comments RBC (test code = RBC) 3.42 4.70-6.10 [facility] CleburneYhvjwfhJNCOVNHPQF4762-15-04 10:29:00 Test Item Value Reference Range Interpretation Comments Hgb (test code = Hgb) 8.9 14.0-18.0 [facility] CleburneLszhwkePVSIDRVOKW8854-96-74 10:29:00 Test Item Value Reference Range Interpretation Comments WBC (test code = WBC) 6.9 3.7-10.4 [facility] CleburneRsdhjgdWFAWAEHRPH3325-25-49 10:29:00 Test Item Value Reference Range Interpretation Comments MPV (test code = MPV) 8.0 7.4-10.4 [facility] Cle[place]neSmkoimfUTJMAIWNIT0415-65-52 10:29:00 Test Item Value Reference Range Interpretation Comments Monocytes # (test code = Monocytes #) 0.7 <=0.8 [facility] Cle[place]neXnnwxygETRTLEWFVV4029-42-55 10:29:00 Test Item Value Reference Range Interpretation Comments Lymphocytes # (test code = Lymphocytes 1.6 1.0-5.5 #) [facility] CleburneLwmquikCSDWOWNWUN2391-09-29 10:29:00 Test Item Value Reference Range Interpretation Comments Eosinophils # (test code = Eosinophils 0.3 <=0.5 #) [facility] CleburneYlaekgiURKCYFWRIV7255-25-02 10:29:00 Test Item Value Reference Range Interpretation Comments Lymphocytes (test code = Lymphocytes) 23.6 20.0-40.0 [facility] CleburneFolrzhiXFAYBGQQCX1259-95-00 10:29:00 Test Item Value Reference Range Interpretation Comments Monocytes (test code = Monocytes) 10.1 2.0-12.0 [facility] CleburneHwspyxgYSUQTWCLRE2579-05-51 10:29:00 Test Item Value Reference Range Interpretation Comments Eosinophils (test code = Eosinophils) 3.9 <=4.0 [address]12-17 10:29:00 Test Item Value Reference Range Interpretation Comments Basophils (test code = Basophils) 0.7 <=1.0 [facility] CleburneRntarahHHDYIXPEOJ6933-17-24 10:29:00 Test Item Value Reference Range Interpretation Comments Neutrophils # (test code = Neutrophils 4.2 1.5-8.1 #) [facility] CleburneKbjjmuaYUZFGDVHSJ9374-87-21 10:29:00 Test Item Value Reference Range Interpretation Comments Segs (test code = Segs) 61.7 45.0-75.0 [place] 085098-12-16 11:52:00 Test Item Value Reference Range Interpretation Comments Basophils # (test code 0.1 See_Comment [Aut omated message] The = Basophils #) system which generated this result tra nsmitted reference range : <=0.2. The reference r ondina was not used to int erpret this result as normal/abnormal . [facility] Cle[place]neXgusiqhBRVJNDSIJJ7425-30-52 11:52:00 Test Item Value Reference Range Interpretation Comments Basophils # (test code 0.1 See_Comment [Aut omated message] The = Basophils #) system which generated this result tra nsmitted reference range : <=0.2. The reference r ondina was not used to int erpret this result as normal/abnormal . [facility] CleburneOidhjyoTSJGMPPIII1039-40-35 11:52:00 Test Item Value Reference Range Interpretation Comments Basophils # (test code 0.1 See_Comment [Aut omated message] The = Basophils #) system which generated this result tra nsmitted reference range : <=0.2. The reference r ondina was not used to int erpret this result as normal/abnormal . [facility] CleburneNqrwqwmOBBLKPXCQI4363-11-13 11:52:00 Test Item Value Reference Range Interpretation Comments Basophils # (test code = Basophils #) 0.1 <=0.2 [facility] CleburneInifznsJJXAEMNGHD3745-07-46 11:52:00 Test Item Value Reference Range Interpretation Comments Basophils # (test code 0.1 See_Comment [Aut omated message] The = Basophils #) system which generated this result tra nsmitted reference range : <=0.2. The reference r ondina was not used to int erpret this result as normal/abnormal . [facility] CleburneQadjasvNYQGADFHGU9418-56-78 11:52:00 Test Item Value Reference Range Interpretation Comments Basophils # (test code = Basophils #) 0.1 <=0.2 [facility] - UZXYEGRH2900-80-22 23:42:00 Test Item Value Reference Range Interpretation Comments MRSA by PCR (test Negative (02/16/18 5:42 code = MRSA by PCR) PM) [facility] [place] XAHXGLOE1145-93-09 23:42:00 Test Item Value Reference Range Interpretation Comments MRSA by PCR (test Negative (02/16/18 5:42 code = MRSA by PCR) PM) [facility] [place] - RCNYDYLD6255-49-62 23:42:00 Test Item Value Reference Range Interpretation Comments MRSA by PCR (test Negative (02/16/18 5:42 code = MRSA by PCR) PM) [facility] - QTPHAJFW4466-44-54 23:42:00 Test Item Value Reference Range Interpretation Comments MRSA by PCR (test Negative (02/16/18 5:42 code = MRSA by PCR) PM) [facility] - IFLHLRIN9528-06-68 23:42:00 Test Item Value Reference Range Interpretation Comments MRSA by PCR (test Negative (02/16/18 5:42 code = MRSA by PCR) PM) [facility] - [id number] 23:42:00 Test Item Value Reference Range Interpretation Comments MRSA by PCR (test Negative (02/16/18 5:42 code = MRSA by PCR) PM) [facility]MeuoapcGJCWYGXLDN6043-90-90 12:00:00 Test Item Value Reference Range Interpretation Comments Vanco Tr TND (test code = Vanco Tr 0530 1 TND) [facility]EaoufedPIDJXEUXXA8112-59-30 12:00:00 Test Item Value Reference Range Interpretation Comments Vanco Tr (test code = Vanco Tr) 6.7 [facility]ZtihmxdDLTFKXUJHB6469-68-63 12:00:00 Test Item Value Reference Range Interpretation Comments Vanco Tr TND (test code = Vanco Tr 0530 1 TND) [facility] CenterBxnatusTBAZGSWVRQ7540-67-40 12:00:00 Test Item Value Reference Range Interpretation Comments Vanco Tr (test code = Vanco Tr) 6.7 [facility] AtlantaBmzyvxvGZAOSRHHFC6292-71-26 12:00:00 Test Item Value Reference Range Interpretation Comments Vanco Tr TND (test code = Vanco Tr 0530 1 TND) [facility]UcgueftOHVCSCVMXR4139-40-03 12:00:00 Test Item Value Reference Range Interpretation Comments Vanco Tr (test code = Vanco Tr) 6.7 [facility] DallasNevgznvWOCUGVODPA1635-69-00 12:00:00 Test Item Value Reference Range Interpretation Comments Vanco Tr TND (test code = Vanco Tr 0530 1 TND) [facility] TexasShwaelkPJBYLLAYVL9806-07-77 12:00:00 Test Item Value Reference Range Interpretation Comments Vanco Tr (test code = Vanco Tr) 6.7 [facility] DallasNzzhcwnNHTEYRBTIA0097-46-25 12:00:00 Test Item Value Reference Range Interpretation Comments Vanco Tr TND (test code = Vanco Tr 0530 1 TND) [facility] AustinBncakubNIGUZGXEAV1320-76-51 12:00:00 Test Item Value Reference Range Interpretation Comments Vanco Tr (test code = Vanco Tr) 6.7 [facility] DallasRtxdyxpLLXWTUTFWO2468-40-23 12:00:00 Test Item Value Reference Range Interpretation Comments Vanco Tr TND (test code = Vanco Tr 0530 1 TND) [facility] AustinTizcpekBCHSAQQMDF8584-71-24 12:00:00 Test Item Value Reference Range Interpretation Comments Vanco Tr (test code = Vanco Tr) 6.7 [facility] Cle[place]neIaywttjXWAPLQVGCR3019-15-50 22:11:00 Test Item Value Reference Range Interpretation Comments PTT (test code = PTT) 38.4 s 22.9-35.8 [facility]WehewxdSTJCNRAVDL1378-10-27 22:11:00 Test Item Value Reference Range Interpretation Comments PTT (test code = PTT) 38.4 s 22.9-35.8 [facility] HospitalOvyypcpFAXSTLIFHF7139-23-87 22:11:00 Test Item Value Reference Range Interpretation Comments PTT (test code = PTT) 38.4 s 22.9-35.8 [facility] HospitalZduwszyEHAPEEQRGC4602-98-70 22:11:00 Test Item Value Reference Range Interpretation Comments PTT (test code = PTT) 38.4 s 22.9-35.8 [facility] HospitalBdnrnopVHJTCGXDSZ7980-83-55 22:11:00 Test Item Value Reference Range Interpretation Comments PTT (test code = PTT) 38.4 s 22.9-35.8 [facility]OzqvtduQUAKTCQIFQ3283-61-62 22:11:00 Test Item Value Reference Range Interpretation Comments PTT (test code = PTT) 38.4 s 22.9-35.8 [facility] Ampfuabwg8734-84-03 22:47:00 Test Item Value Reference Range Interpretation Comments Culture: Anaerobic No Anaerobes Isolated (test code = Culture: Anaerobic) [facility] Stain Ygtfbj1529-58-10 22:47:00 Test Item Value Reference Range Interpretation Comments Gram Stain Report Rare WBC's No Organisms (test code = Gram Seen Stain Report) [facility]: Aspirate/Body Fluid/Eyszge3248-55-37 22:47:00 Test Item Value Reference Range Interpretation Comments Culture: Aspirate/Body Fluid/Tissue No Growth (test code = Culture: Aspirate/Body Fluid/Tissue) [facility] [id number] 22:47:00 Test Item Value Reference Range Interpretation Comments Culture: Anaerobic No Anaerobes Isolated (test code = Culture: Anaerobic) [facility] Stain [id number] 22:47:00 Test Item Value Reference Range Interpretation Comments Gram Stain Report Rare WBC's No Organisms (test code = Gram Seen Stain Report) [facility]: Aspirate/Body Fluid/[id number] 22:47:00 Test Item Value Reference Range Interpretation Comments Culture: Aspirate/Body Fluid/Tissue No Growth (test code = Culture: Aspirate/Body Fluid/Tissue) [facility] [id number] 22:47:00 Test Item Value Reference Range Interpretation Comments Culture: Anaerobic No Anaerobes Isolated (test code = Culture: Anaerobic) [facility] [id number] 22:47:00 Test Item Value Reference Range Interpretation Comments Gram Stain Report Rare WBC's No Organisms (test code = Gram Seen Stain Report) [facility]: Aspirate/Body Fluid/Jpvsgr1028-25-26 22:47:00 Test Item Value Reference Range Interpretation Comments Culture: Aspirate/Body Fluid/Tissue No Growth (test code = Culture: Aspirate/Body Fluid/Tissue) [facility] Lmhycxuoe9541-04-16 22:47:00 Test Item Value Reference Range Interpretation Comments Culture: Anaerobic No Anaerobes Isolated (test code = Culture: Anaerobic) [facility] [id number] 22:47:00 Test Item Value Reference Range Interpretation Comments Gram Stain Report Rare WBC's No Organisms (test code = Gram Seen Stain Report) [facility] Aspirate/Body Fluid/[id number] 22:47:00 Test Item Value Reference Range Interpretation Comments Culture: Aspirate/Body Fluid/Tissue No Growth (test code = Culture: Aspirate/Body Fluid/Tissue) [facility]: Ytayucdlb0728-37-98 22:47:00 Test Item Value Reference Range Interpretation Comments Culture: Anaerobic No Anaerobes Isolated (test code = Culture: Anaerobic) [facility] Stain [id number] 22:47:00 Test Item Value Reference Range Interpretation Comments Gram Stain Report Rare WBC's No Organisms (test code = Gram Seen Stain Report) [facility] Aspirate/Body Fluid/Momxye0189-36-88 22:47:00 Test Item Value Reference Range Interpretation Comments Culture: Aspirate/Body Fluid/Tissue No Growth (test code = Culture: Aspirate/Body Fluid/Tissue) [facility]: Snonjhzor0551-02-00 22:47:00 Test Item Value Reference Range Interpretation Comments Culture: Anaerobic No Anaerobes Isolated (test code = Culture: Anaerobic) [facility] Stain [id number] 22:47:00 Test Item Value Reference Range Interpretation Comments Gram Stain Report Rare WBC's No Organisms (test code = Gram Seen Stain Report) [facility] Aspirate/Body Fluid/[id number] 22:47:00 Test Item Value Reference Range Interpretation Comments Culture: Aspirate/Body Fluid/Tissue No Growth (test code = Culture: Aspirate/Body Fluid/Tissue) [facility] Texas[facility]: [id number] 22:40:00 Test Item Value Reference Range Interpretation Comments Culture: Anaerobic No Anaerobes Isolated (test code = Culture: Anaerobic) [facility] St[facility] [id number] 22:40:00 Test Item Value Reference Range Interpretation Comments Gram Stain Report Rare WBC's No Organisms (test code = Gram Seen Stain Report) [facility]annCulture: Aspirate/Body Fluid/Mikdbe2111-90-44 22:40:00 Test Item Value Reference Range Interpretation Comments Culture: Aspirate/Body Fluid/Tissue No Growth (test code = Culture: Aspirate/Body Fluid/Tissue) [facility]: Qjnjflmbi7592-81-20 22:40:00 Test Item Value Reference Range Interpretation Comments Culture: Anaerobic No Anaerobes Isolated (test code = Culture: Anaerobic) [facility] Sbirez6135-16-37 22:40:00 Test Item Value Reference Range Interpretation Comments Gram Stain Report Rare WBC's No Organisms (test code = Gram Seen Stain Report) [facility]Culture: Aspirate/Body Fluid/[id number] 22:40:00 Test Item Value Reference Range Interpretation Comments Culture: Aspirate/Body Fluid/Tissue No Growth (test code = Culture: Aspirate/Body Fluid/Tissue) [facility]: [id number] 22:40:00 Test Item Value Reference Range Interpretation Comments Culture: Anaerobic No Anaerobes Isolated (test code = Culture: Anaerobic) [facility] Stain Vuiuzk3717-08-29 22:40:00 Test Item Value Reference Range Interpretation Comments Gram Stain Report Rare WBC's No Organisms (test code = Gram Seen Stain Report) [facility]: Aspirate/Body Fluid/[id number] 22:40:00 Test Item Value Reference Range Interpretation Comments Culture: Aspirate/Body Fluid/Tissue No Growth (test code = Culture: Aspirate/Body Fluid/Tissue) [facility] TexasCulture: [id number] 22:40:00 Test Item Value Reference Range Interpretation Comments Culture: Anaerobic No Anaerobes Isolated (test code = Culture: Anaerobic) [facility] [id number] 22:40:00 Test Item Value Reference Range Interpretation Comments Gram Stain Report Rare WBC's No Organisms (test code = Gram Seen Stain Report) [facility]: Aspirate/Body Fluid/Zmblia7854-97-61 22:40:00 Test Item Value Reference Range Interpretation Comments Culture: Aspirate/Body Fluid/Tissue No Growth (test code = Culture: Aspirate/Body Fluid/Tissue) [facility]: Dlxmfaqby1820-50-95 22:40:00 Test Item Value Reference Range Interpretation Comments Culture: Anaerobic No Anaerobes Isolated (test code = Culture: Anaerobic) [facility] IsmoleGram Stain Slilgc1364-07-31 22:40:00 Test Item Value Reference Range Interpretation Comments Gram Stain Report Rare WBC's No Organisms (test code = Gram Seen Stain Report) [facility]: Aspirate/Body Fluid/Cvjzaa4539-89-20 22:40:00 Test Item Value Reference Range Interpretation Comments Culture: Aspirate/Body Fluid/Tissue No Growth (test code = Culture: Aspirate/Body Fluid/Tissue) [facility]: Jkgzzyvpa2757-25-91 22:40:00 Test Item Value Reference Range Interpretation Comments Culture: Anaerobic No Anaerobes Isolated (test code = Culture: Anaerobic) [facility] DallasThumbAd Stain [id number] 22:40:00 Test Item Value Reference Range Interpretation Comments Gram Stain Report Rare WBC's No Organisms (test code = Gram Seen Stain Report) [facility]: Aspirate/Body Fluid/Fmsopx8969-81-00 22:40:00 Test Item Value Reference Range Interpretation Comments Culture: Aspirate/Body Fluid/Tissue No Growth (test code = Culture: Aspirate/Body Fluid/Tissue) [facility] [id number] 09:55:00 Test Item Value Reference Range Interpretation Comments Antibody Scrn (test Negative (02/14/18 code = Antibody Scrn) 3:55 AM) [facility] [employer] [id number] 09:55:00 Test Item Value Reference Range Interpretation Comments ABO/Rh (test code = ABO/Rh) A POS [facility] [id number] 09:55:00 Test Item Value Reference Range Interpretation Comments B/C Ratio (test code = B/C Ratio) 14 1 6-25 [facility] [id number] 09:55:00 Test Item Value Reference Range Interpretation Comments Globulin (test code = Globulin) 5.3 2.7-4.2 [facility] [id number] 09:55:00 Test Item Value Reference Range Interpretation Comments A/G Ratio (test code = A/G Ratio) 0.5 1 0.7-1.6 [facility] [id number] 09:55:00 Test Item Value Reference Range Interpretation Comments Albumin Lvl (test code = Albumin Lvl) 2.8 3.5-5.0 [facility] [id number] 09:55:00 Test Item Value Reference Range Interpretation Comments Alk Phos (test code = Alk Phos) 92 39-136 [facility] [id number] 09:55:00 Test Item Value Reference Range Interpretation Comments ALT (test code = ALT) 21 See_Comment [Auto mated message] The system which ge nerated this result transmit garrett reference range : <=65. The reference range was not used to interpr et this result as cassie l/abnormal. [facility] [id number] 09:55:00 Test Item Value Reference Range Interpretation Comments AST (test code = AST) 15 See_Comment [Auto mated message] The system which ge nerated this result transmit garrett reference range : <=37. The reference range was not used to interpr et this result as cassie l/abnormal. [facility] [id number] 09:55:00 Test Item Value Reference Range Interpretation Comments Total Protein (test code = Total 8.1 6.4-8.4 Protein) [facility] [id number] 09:55:00 Test Item Value Reference Range Interpretation Comments Bili Total (test code = Bili Total) 0.2 0.2-1.3 [facility] DallasRlwivmyGMQQWTVWMO3031-79-72 09:55:00 Test Item Value Reference Range Interpretation Comments PTT (test code = PTT) 35.4 s 22.9-35.8 [facility] DallasXxvbiinHEVIBKPYKU0848-53-69 09:55:00 Test Item Value Reference Range Interpretation Comments PT (test code = PT) 13.4 s 12.0-14.7 [facility] DallasHsejupfLKWYNCKIHN9021-54-79 09:55:00 Test Item Value Reference Range Interpretation Comments INR (test code = INR) 1.04 1 0.85-1.17 [facility] [employer] [id number] 09:55:00 Test Item Value Reference Range Interpretation Comments Antibody Scrn (test Negative (02/14/18 code = Antibody Scrn) 3:55 AM) [facility] [employer] [id number] 09:55:00 Test Item Value Reference Range Interpretation Comments ABO/Rh (test code = ABO/Rh) A POS [facility] [place] [id number] 09:55:00 Test Item Value Reference Range Interpretation Comments B/C Ratio (test code = B/C Ratio) 14 1 6-25 [place] [address]-12-13 09:55:00 Test Item Value Reference Range Interpretation Comments Globulin (test code = Globulin) 5.3 2.7-4.2 [place] [address]-12-13 09:55:00 Test Item Value Reference Range Interpretation Comments A/G Ratio (test code = A/G Ratio) 0.5 1 0.7-1.[address]12-13 09:55:00 Test Item Value Reference Range Interpretation Comments Albumin Lvl (test code = Albumin Lvl) 2.8 3.5-5.0 [place] [address]-12-13 09:55:00 Test Item Value Reference Range Interpretation Comments Alk Phos (test code = Alk Phos) 92 39-136 [place] [id number] 09:55:00 Test Item Value Reference Range Interpretation Comments ALT (test code = ALT) 21 See_Comment [Auto mated message] The system which ge nerated this result transmit garrett reference range : <=65. The reference range was not used to interpr et this result as cassie l/abnormal. [place] [id number] 09:55:00 Test Item Value Reference Range Interpretation Comments AST (test code = AST) 15 See_Comment [Auto mated message] The system which ge nerated this result transmit garrett reference range : <=37. The reference range was not used to interpr et this result as cassie l/abnormal. [place] [id number] 09:55:00 Test Item Value Reference Range Interpretation Comments Total Protein (test code = Total 8.1 6.4-8.4 Protein) [address]12-13 09:55:00 Test Item Value Reference Range Interpretation Comments Bili Total (test code = Bili Total) 0.2 0.2-1.[address]12-13 09:55:00 Test Item Value Reference Range Interpretation Comments PTT (test code = PTT) 35.4 s 22.9-35.[address]12-13 09:55:00 Test Item Value Reference Range Interpretation Comments PT (test code = PT) 13.4 s 12.0-14.7 [facility] TexasApukpcfKIZROCYVRD3629-35-17 09:55:00 Test Item Value Reference Range Interpretation Comments INR (test code = INR) 1.04 1 0.85-1.17 [facility] DallasTys[facility] [id number] 09:55:00 Test Item Value Reference Range Interpretation Comments Antibody Scrn (test Negative (02/14/18 code = Antibody Scrn) 3:55 AM) [facility] DallasKROGNI [facility] [id number] 09:55:00 Test Item Value Reference Range Interpretation Comments ABO/Rh (test code = ABO/Rh) A POS [facility] [id number] 09:55:00 Test Item Value Reference Range Interpretation Comments B/C Ratio (test code = B/C Ratio) 14 1 6-25 [facility] [id number] 09:55:00 Test Item Value Reference Range Interpretation Comments Globulin (test code = Globulin) 5.3 2.7-4.2 [facility] [id number] 09:55:00 Test Item Value Reference Range Interpretation Comments A/G Ratio (test code = A/G Ratio) 0.5 1 0.7-1.6 [facility] [id number] 09:55:00 Test Item Value Reference Range Interpretation Comments Albumin Lvl (test code = Albumin Lvl) 2.8 3.5-5.0 [facility] [id number] 09:55:00 Test Item Value Reference Range Interpretation Comments Alk Phos (test code = Alk Phos) 92 39-136 [facility] [id number] 09:55:00 Test Item Value Reference Range Interpretation Comments ALT (test code = ALT) 21 See_Comment [Auto mated message] The system which ge nerated this result transmit garrett reference range : <=65. The reference range was not used to interpr et this result as cassie l/abnormal. [facility] [id number] 09:55:00 Test Item Value Reference Range Interpretation Comments AST (test code = AST) 15 See_Comment [Auto mated message] The system which ge nerated this result transmit garrett reference range : <=37. The reference range was not used to interpr et this result as cassie l/abnormal. [facility] [id number] 09:55:00 Test Item Value Reference Range Interpretation Comments Total Protein (test code = Total 8.1 6.4-8.4 Protein) [facility] [id number] 09:55:00 Test Item Value Reference Range Interpretation Comments Bili Total (test code = Bili Total) 0.2 0.2-1.3 [facility] [id number] 09:55:00 Test Item Value Reference Range Interpretation Comments PTT (test code = PTT) 35.4 s 22.9-35.8 [facility] JbbllvoTQIMXTVQQU9076-96-25 09:55:00 Test Item Value Reference Range Interpretation Comments PT (test code = PT) 13.4 s 12.0-14.7 [facility] KdhrsdmQLTPOPYHLF3380-25-00 09:55:00 Test Item Value Reference Range Interpretation Comments INR (test code = INR) 1.04 1 0.85-1.17 [facility] [employer] [id number] 09:55:00 Test Item Value Reference Range Interpretation Comments Antibody Scrn (test Negative (02/14/18 code = Antibody Scrn) 3:55 AM) [facility] [employer] [id number] 09:55:00 Test Item Value Reference Range Interpretation Comments ABO/Rh (test code = ABO/Rh) A POS [facility] [id number] 09:55:00 Test Item Value Reference Range Interpretation Comments B/C Ratio (test code = B/C Ratio) 14 1 6-25 [facility] [id number] 09:55:00 Test Item Value Reference Range Interpretation Comments Globulin (test code = Globulin) 5.3 2.7-4.2 [facility] [id number] 09:55:00 Test Item Value Reference Range Interpretation Comments A/G Ratio (test code = A/G Ratio) 0.5 1 0.7-1.6 [facility] [id number] 09:55:00 Test Item Value Reference Range Interpretation Comments Albumin Lvl (test code = Albumin Lvl) 2.8 3.5-5.0 [facility] [id number] 09:55:00 Test Item Value Reference Range Interpretation Comments Alk Phos (test code = Alk Phos) 92 39-136 [facility] [id number] 09:55:00 Test Item Value Reference Range Interpretation Comments ALT (test code = ALT) 21 <=65 [facility] [id number] 09:55:00 Test Item Value Reference Range Interpretation Comments AST (test code = AST) 15 <=37 [facility] [id number] 09:55:00 Test Item Value Reference Range Interpretation Comments Total Protein (test code = Total 8.1 6.4-8.4 Protein) [facility] [id number] 09:55:00 Test Item Value Reference Range Interpretation Comments Bili Total (test code = Bili Total) 0.2 0.2-1.3 [facility] TexasXijqkvnCUGIMYRWUM2473-14-71 09:55:00 Test Item Value Reference Range Interpretation Comments PTT (test code = PTT) 35.4 s 22.9-35.8 [facility] DallasJvqjmdwFEDZNLGAFU6623-97-77 09:55:00 Test Item Value Reference Range Interpretation Comments PT (test code = PT) 13.4 s 12.0-14.7 [facility] DallasMoffbcrHWCPEZAGVK6177-97-58 09:55:00 Test Item Value Reference Range Interpretation Comments INR (test code = INR) 1.04 1 0.85-1.17 [facility] [employer] [id number] 09:55:00 Test Item Value Reference Range Interpretation Comments Antibody Scrn (test Negative (02/14/18 code = Antibody Scrn) 3:55 AM) [facility] [employer] [id number] 09:55:00 Test Item Value Reference Range Interpretation Comments ABO/Rh (test code = ABO/Rh) A POS [facility] [id number] 09:55:00 Test Item Value Reference Range Interpretation Comments B/C Ratio (test code = B/C Ratio) 14 1 6-25 [facility] [id number] 09:55:00 Test Item Value Reference Range Interpretation Comments Globulin (test code = Globulin) 5.3 2.7-4.2 [facility] [id number] 09:55:00 Test Item Value Reference Range Interpretation Comments A/G Ratio (test code = A/G Ratio) 0.5 1 0.7-1.6 [facility]2018-12-13 09:55:00 Test Item Value Reference Range Interpretation Comments Albumin Lvl (test code = Albumin Lvl) 2.8 3.5-5.0 [facility]2018-12-13 09:55:00 Test Item Value Reference Range Interpretation Comments Alk Phos (test code = Alk Phos) 92 39-136 [facility]2018-12-13 09:55:00 Test Item Value Reference Range Interpretation Comments ALT (test code = ALT) 21 See_Comment [Auto mated message] The system which ge nerated this result transmit garrett reference range : <=65. The reference range was not used to interpr et this result as cassie l/abnormal. [facility]2018-12-13 09:55:00 Test Item Value Reference Range Interpretation Comments AST (test code = AST) 15 See_Comment [Auto mated message] The system which ge nerated this result transmit garrett reference range : <=37. The reference range was not used to interpr et this result as cassie l/abnormal. [facility] [id number] 09:55:00 Test Item Value Reference Range Interpretation Comments Total Protein (test code = Total 8.1 6.4-8.4 Protein) [facility] [id number] 09:55:00 Test Item Value Reference Range Interpretation Comments Bili Total (test code = Bili Total) 0.2 0.2-1.3 [facility] [id number] 09:55:00 Test Item Value Reference Range Interpretation Comments PTT (test code = PTT) 35.4 s 22.9-35.8 [facility] [id number] 09:55:00 Test Item Value Reference Range Interpretation Comments PT (test code = PT) 13.4 s 12.0-14.7 [facility] [id number] 09:55:00 Test Item Value Reference Range Interpretation Comments INR (test code = INR) 1.04 1 0.85-1.17 [facility] Dallas[facility] [id number] 09:55:00 Test Item Value Reference Range Interpretation Comments Antibody Scrn (test Negative (02/14/18 code = Antibody Scrn) 3:55 AM) [facility] [employer] [id number] 09:55:00 Test Item Value Reference Range Interpretation Comments ABO/Rh (test code = ABO/Rh) A POS [facility]2018-12-13 09:55:00 Test Item Value Reference Range Interpretation Comments B/C Ratio (test code = B/C Ratio) 14 1 6-25 [facility]2018-12-13 09:55:00 Test Item Value Reference Range Interpretation Comments Globulin (test code = Globulin) 5.3 2.7-4.2 [facility]2018-12-13 09:55:00 Test Item Value Reference Range Interpretation Comments A/G Ratio (test code = A/G Ratio) 0.5 1 0.7-1.6 [facility]2018-12-13 09:55:00 Test Item Value Reference Range Interpretation Comments Albumin Lvl (test code = Albumin Lvl) 2.8 3.5-5.0 [facility]2018-12-13 09:55:00 Test Item Value Reference Range Interpretation Comments Alk Phos (test code = Alk Phos) 92 39-136 [facility]2018-12-13 09:55:00 Test Item Value Reference Range Interpretation Comments ALT (test code = ALT) 21 <=65 [facility]2018-12-13 09:55:00 Test Item Value Reference Range Interpretation Comments AST (test code = AST) 15 <=37 [place] [id number] 09:55:00 Test Item Value Reference Range Interpretation Comments Total Protein (test code = Total 8.1 6.4-8.4 Protein) [facility]2018-12-13 09:55:00 Test Item Value Reference Range Interpretation Comments Bili Total (test code = Bili Total) 0.2 0.2-1.3 [id number] 09:55:00 Test Item Value Reference Range Interpretation Comments PTT (test code = PTT) 35.4 s 22.9-35.8 [facility] [id number] 09:55:00 Test Item Value Reference Range Interpretation Comments PT (test code = PT) 13.4 s 12.0-14.7 [facility] [id number] 09:55:00 Test Item Value Reference Range Interpretation Comments INR (test code = INR) 1.04 1 0.85-1.17 [facility]2018-12-13 03:06:00 Test Item Value Reference Range Interpretation Comments Lactic Acid Lvl (test code = Lactic 1.3 0.5-2.2 Acid Lvl) [facility] [id number] 03:06:00 Test Item Value Reference Range Interpretation Comments Sed Rate (test code = 60 See_Comment [Auto mated message] The Sed Rate) system which ge nerated this result transmit garrett reference range : <=15. The reference range was not used to interpr et this result as cassie l/abnormal. [facility]2018-12-13 03:06:00 Test Item Value Reference Range Interpretation Comments Lactic Acid Lvl (test code = Lactic 1.3 0.5-2.2 Acid Lvl) [facility] CleburneBxvkaiuOMBUSDXASV6756-09-00 03:06:00 Test Item Value Reference Range Interpretation Comments Sed Rate (test code = 60 See_Comment [Auto mated message] The Sed Rate) system which ge nerated this result transmit garrett reference range : <=15. The reference range was not used to interpr et this result as cassie l/abnormal. [facility]2018-12-13 03:06:00 Test Item Value Reference Range Interpretation Comments Lactic Acid Lvl (test code = Lactic 1.3 0.5-2.2 Acid Lvl) [facility] C[id number] 03:06:00 Test Item Value Reference Range Interpretation Comments Sed Rate (test code = 60 See_Comment [Auto mated message] The Sed Rate) system which ge nerated this result transmit garrett reference range : <=15. The reference range was not used to interpr et this result as cassie l/abnormal. [facility]2018-12-13 03:06:00 Test Item Value Reference Range Interpretation Comments Lactic Acid Lvl (test code = Lactic 1.3 0.5-2.2 Acid Lvl) [facility] [id number] 03:06:00 Test Item Value Reference Range Interpretation Comments Sed Rate (test code = Sed Rate) 60 <=15 [place] [id number] 03:06:00 Test Item Value Reference Range Interpretation Comments Lactic Acid Lvl (test code = Lactic 1.3 0.5-2.2 Acid Lvl) [id number] 03:06:00 Test Item Value Reference Range Interpretation Comments Sed Rate (test code = 60 See_Comment [Auto mated message] The Sed Rate) system which ge nerated this result transmit garrett reference range : <=15. The reference range was not used to interpr et this result as cassie l/abnormal. [facility] [id number] 03:06:00 Test Item Value Reference Range Interpretation Comments Lactic Acid Lvl (test code = Lactic 1.3 0.5-2.2 Acid Lvl) [id number] 03:06:00 Test Item Value Reference Range Interpretation Comments Sed Rate (test code = Sed Rate) 60 <=15 [facility] [id number] 01:24:00 Test Item Value Reference Range Interpretation Comments RBC product (test code Product available = RBC product) 4(02/13/18 7:24 PM) [facility] [id number] 01:24:00 Test Item Value Reference Range Interpretation Comments RBC product (test code Product available = RBC product) 4(02/13/18 7:24 PM) [facility] [id number] 01:24:00 Test Item Value Reference Range Interpretation Comments RBC product (test code Product available = RBC product) 4(02/13/18 7:24 PM) [facility] [id number] 01:24:00 Test Item Value Reference Range Interpretation Comments RBC product (test code Product available = RBC product) 4(02/13/18 7:24 PM) [facility] [id number] 01:24:00 Test Item Value Reference Range Interpretation Comments RBC product (test code Product available = RBC product) 4(02/13/18 7:24 PM) [facility] [id number] 01:24:00 Test Item Value Reference Range Interpretation Comments RBC product (test code Product available = RBC product) 4(02/13/18 7:24 PM) [facility] [id number] 01:00:00 Test Item Value Reference Range Interpretation Comments UA WBC (test code = UA WBC) 1 <=5 [facility] [id number] 01:00:00 Test Item Value Reference Range Interpretation Comments UA Protein (test code Negative (02/13/18 7:00 = UA Protein) PM) [facility] AND [id number] 01:00:00 Test Item Value Reference Range Interpretation Comments UA Spec Grav (test code = UA Spec 1.013 1 Grav) [facility] AND [id number] 01:00:00 Test Item Value Reference Range Interpretation Comments UA pH (test code = UA pH) 6.0 1 5.0-8.0 [facility] AND [id number] 01:00:00 Test Item Value Reference Range Interpretation Comments UA Nitrite (test code Negative (02/13/18 7:00 = UA Nitrite) PM) [facility] AND [id number] 01:00:00 Test Item Value Reference Range Interpretation Comments UA Blood (test code = Negative (02/13/18 7:00 UA Blood) PM) [facility] AND [id number] 01:00:00 Test Item Value Reference Range Interpretation Comments UA Bili (test code = Negative *NA*(02/13/18 UA Bili) 7:00 PM) [facility] AND [id number] 01:00:00 Test Item Value Reference Range Interpretation Comments UA Ketones (test code = UA Ketones) Negative [facility] AND [id number] 01:00:00 Test Item Value Reference Range Interpretation Comments UA Glucose (test code Negative *NA*(02/13/18 = UA Glucose) 7:00 PM) [facility] AND [id number] 01:00:00 Test Item Value Reference Range Interpretation Comments UA Sq Epi (test code = UA Sq Occasional /LPF Epi) [facility] AND [id number] 01:00:00 Test Item Value Reference Range Interpretation Comments UA Leuk Est (test Negative (02/13/18 7:00 code = UA Leuk Est) PM) [facility] AND [id number] 01:00:00 Test Item Value Reference Range Interpretation Comments UA Urobilinogen (test code = UA <=1.0 mg/dL 0.1-1.0 Urobilinogen) [facility] AND [id number] 01:00:00 Test Item Value Reference Range Interpretation Comments UA Color (test code = Yellow *NA*(02/13/18 UA Color) 7:00 PM) [facility] AND [id number] 01:00:00 Test Item Value Reference Range Interpretation Comments UA Turbidity (test code = Clear (02/13/18 7:00 UA Turbidity) PM) [facility] AND [id number] 01:00:00 Test Item Value Reference Range Interpretation Comments UA Hyal Cast (test 4 See_Comment [Automat ed message] The code = UA Hyal Cast) system which generated this result transmit garrett reference range : <=2. The reference range was not used to interpr et this result as cassie l/abnormal. [facility] AND [id number] 01:00:00 Test Item Value Reference Range Interpretation Comments UA Mucus (test code = UA Mucus) Many /LPF [facility] AND [id number] 01:00:00 Test Item Value Reference Range Interpretation Comments UA WBC (test code = 1 See_Comment [Automa garrett message] The UA WBC) system which ge nerated this result transmit garrett reference range : <=5. The reference range was not used to interpr et this result as cassie l/abnormal. [facility] AND [id number] 01:00:00 Test Item Value Reference Range Interpretation Comments UA Protein (test code Negative (02/13/18 7:00 = UA Protein) PM) [facility] AND [id number] 01:00:00 Test Item Value Reference Range Interpretation Comments UA Spec Grav (test code = UA Spec 1.013 1 Grav) [facility] AND [id number] 01:00:00 Test Item Value Reference Range Interpretation Comments UA pH (test code = UA pH) 6.0 1 5.0-8.0 [facility] AND [id number] 01:00:00 Test Item Value Reference Range Interpretation Comments UA Nitrite (test code Negative (02/13/18 7:00 = UA Nitrite) PM) [facility] AND [id number] 01:00:00 Test Item Value Reference Range Interpretation Comments UA Blood (test code = Negative (02/13/18 7:00 UA Blood) PM) [facility] AND [id number] 01:00:00 Test Item Value Reference Range Interpretation Comments UA Bili (test code = Negative *NA*(02/13/18 UA Bili) 7:00 PM) [facility] AND [id number] 01:00:00 Test Item Value Reference Range Interpretation Comments UA Ketones (test code = UA Ketones) Negative [facility] AND [id number] 01:00:00 Test Item Value Reference Range Interpretation Comments UA Glucose (test code Negative *NA*(02/13/18 = UA Glucose) 7:00 PM) [facility] AND [id number] 01:00:00 Test Item Value Reference Range Interpretation Comments UA Sq Epi (test code = UA Sq Occasional /LPF Epi) [facility] AND [id number] 01:00:00 Test Item Value Reference Range Interpretation Comments UA Leuk Est (test Negative (02/13/18 7:00 code = UA Leuk Est) PM) [facility] AND [id number] 01:00:00 Test Item Value Reference Range Interpretation Comments UA Urobilinogen (test code = UA <=1.0 mg/dL 0.1-1.0 Urobilinogen) [facility] AND [id number] 01:00:00 Test Item Value Reference Range Interpretation Comments UA Color (test code = Yellow *NA*(02/13/18 UA Color) 7:00 PM) [facility] AND [id number] 01:00:00 Test Item Value Reference Range Interpretation Comments UA Turbidity (test code = Clear (02/13/18 7:00 UA Turbidity) PM) [facility] AND [id number] 01:00:00 Test Item Value Reference Range Interpretation Comments UA Hyal Cast (test 4 See_Comment [Automat ed message] The code = UA Hyal Cast) system which generated this result transmit garrett reference range : <=2. The reference range was not used to interpr et this result as cassie l/abnormal. [facility] AND [id number] 01:00:00 Test Item Value Reference Range Interpretation Comments UA Mucus (test code = UA Mucus) Many /LPF [facility] AND [id number] 01:00:00 Test Item Value Reference Range Interpretation Comments UA WBC (test code = 1 See_Comment [Automa garrett message] The UA WBC) system which ge nerated this result transmit garrett reference range : <=5. The reference range was not used to interpr et this result as cassie l/abnormal. [facility] AND [id number] 01:00:00 Test Item Value Reference Range Interpretation Comments UA Protein (test code Negative (02/13/18 7:00 = UA Protein) PM) [facility] AND [id number] 01:00:00 Test Item Value Reference Range Interpretation Comments UA Spec Grav (test code = UA Spec 1.013 1 Grav) [facility] AND [id number] 01:00:00 Test Item Value Reference Range Interpretation Comments UA pH (test code = UA pH) 6.0 1 5.0-8.0 [facility] AND [id number] 01:00:00 Test Item Value Reference Range Interpretation Comments UA Nitrite (test code Negative (02/13/18 7:00 = UA Nitrite) PM) [facility] AND [id number] 01:00:00 Test Item Value Reference Range Interpretation Comments UA Blood (test code = Negative (02/13/18 7:00 UA Blood) PM) [facility] AND [id number] 01:00:00 Test Item Value Reference Range Interpretation Comments UA Bili (test code = Negative *NA*(02/13/18 UA Bili) 7:00 PM) [facility] AND [id number] 01:00:00 Test Item Value Reference Range Interpretation Comments UA Ketones (test code = UA Ketones) Negative [facility] AND [id number] 01:00:00 Test Item Value Reference Range Interpretation Comments UA Glucose (test code Negative *NA*(02/13/18 = UA Glucose) 7:00 PM) [facility] AND [id number] 01:00:00 Test Item Value Reference Range Interpretation Comments UA Sq Epi (test code = UA Sq Occasional /LPF Epi) [facility] AND [id number] 01:00:00 Test Item Value Reference Range Interpretation Comments UA Leuk Est (test Negative (02/13/18 7:00 code = UA Leuk Est) PM) [facility] AND [id number] 01:00:00 Test Item Value Reference Range Interpretation Comments UA Urobilinogen (test code = UA <=1.0 mg/dL 0.1-1.0 Urobilinogen) [facility] AND [id number] 01:00:00 Test Item Value Reference Range Interpretation Comments UA Color (test code = Yellow *NA*(02/13/18 UA Color) 7:00 PM) [facility] AND [id number] 01:00:00 Test Item Value Reference Range Interpretation Comments UA Turbidity (test code = Clear (02/13/18 7:00 UA Turbidity) PM) [facility] AND [id number] 01:00:00 Test Item Value Reference Range Interpretation Comments UA Hyal Cast (test 4 See_Comment [Automat ed message] The code = UA Hyal Cast) system which generated this result transmit garrett reference range : <=2. The reference range was not used to interpr et this result as cassie l/abnormal. [facility] AND [id number] 01:00:00 Test Item Value Reference Range Interpretation Comments UA Mucus (test code = UA Mucus) Many /LPF [facility] AND [id number] 01:00:00 Test Item Value Reference Range Interpretation Comments UA WBC (test code = 1 See_Comment [Automa garrett message] The UA WBC) system which ge nerated this result transmit garrett reference range : <=5. The reference range was not used to interpr et this result as cassie l/abnormal. [facility] AND [id number] 01:00:00 Test Item Value Reference Range Interpretation Comments UA Protein (test code Negative (02/13/18 7:00 = UA Protein) PM) [facility] AND [id number] 01:00:00 Test Item Value Reference Range Interpretation Comments UA Spec Grav (test code = UA Spec 1.013 1 Grav) [facility] AND [id number] 01:00:00 Test Item Value Reference Range Interpretation Comments UA pH (test code = UA pH) 6.0 1 5.0-8.0 [facility] AND [id number] 01:00:00 Test Item Value Reference Range Interpretation Comments UA Nitrite (test code Negative (02/13/18 7:00 = UA Nitrite) PM) [facility] [id number] 01:00:00 Test Item Value Reference Range Interpretation Comments UA Blood (test code = Negative (02/13/18 7:00 UA Blood) PM) [facility] [id number] 01:00:00 Test Item Value Reference Range Interpretation Comments UA Bili (test code = Negative *NA*(02/13/18 UA Bili) 7:00 PM) [facility] [id number] 01:00:00 Test Item Value Reference Range Interpretation Comments UA Ketones (test code = UA Ketones) Negative [facility] AND [id number] 01:00:00 Test Item Value Reference Range Interpretation Comments UA Glucose (test code Negative *NA*(02/13/18 = UA Glucose) 7:00 PM) [facility] AND [id number] 01:00:00 Test Item Value Reference Range Interpretation Comments UA Sq Epi (test code = UA Sq Occasional /LPF Epi) [facility] AND [id number] 01:00:00 Test Item Value Reference Range Interpretation Comments UA Leuk Est (test Negative (02/13/18 7:00 code = UA Leuk Est) PM) [facility] AND [id number] 01:00:00 Test Item Value Reference Range Interpretation Comments UA Urobilinogen (test code = UA <=1.0 mg/dL 0.1-1.0 Urobilinogen) [facility] AND [id number] 01:00:00 Test Item Value Reference Range Interpretation Comments UA Color (test code = Yellow *NA*(02/13/18 UA Color) 7:00 PM) [facility] AND [id number] 01:00:00 Test Item Value Reference Range Interpretation Comments UA Turbidity (test code = Clear (02/13/18 7:00 UA Turbidity) PM) [facility] [id number] 01:00:00 Test Item Value Reference Range Interpretation Comments UA Hyal Cast (test code = UA Hyal Cast) 4 <=2 [facility] AND [id number] 01:00:00 Test Item Value Reference Range Interpretation Comments UA Mucus (test code = UA Mucus) Many /LPF [facility] AND [id number] 01:00:00 Test Item Value Reference Range Interpretation Comments UA WBC (test code = UA WBC) 1 <=5 [facility] AND [id number] 01:00:00 Test Item Value Reference Range Interpretation Comments UA Protein (test code Negative (02/13/18 7:00 = UA Protein) PM) [facility] AND [id number] 01:00:00 Test Item Value Reference Range Interpretation Comments UA Spec Grav (test code = UA Spec 1.013 1 Grav) [facility] AND [id number] 01:00:00 Test Item Value Reference Range Interpretation Comments UA pH (test code = UA pH) 6.0 1 5.0-8.0 [facility] AND [id number] 01:00:00 Test Item Value Reference Range Interpretation Comments UA Nitrite (test code Negative (02/13/18 7:00 = UA Nitrite) PM) [facility] AND [id number] 01:00:00 Test Item Value Reference Range Interpretation Comments UA Blood (test code = Negative (02/13/18 7:00 UA Blood) PM) [facility] AND [id number] 01:00:00 Test Item Value Reference Range Interpretation Comments UA Bili (test code = Negative *NA*(02/13/18 UA Bili) 7:00 PM) [facility] AND [id number] 01:00:00 Test Item Value Reference Range Interpretation Comments UA Ketones (test code = UA Ketones) Negative [facility] AND [id number] 01:00:00 Test Item Value Reference Range Interpretation Comments UA Glucose (test code Negative *NA*(02/13/18 = UA Glucose) 7:00 PM) [facility] AND [id number] 01:00:00 Test Item Value Reference Range Interpretation Comments UA Sq Epi (test code = UA Sq Occasional /LPF Epi) [facility] AND [id number] 01:00:00 Test Item Value Reference Range Interpretation Comments UA Leuk Est (test Negative (02/13/18 7:00 code = UA Leuk Est) PM) [facility] AND [id number] 01:00:00 Test Item Value Reference Range Interpretation Comments UA Urobilinogen (test code = UA <=1.0 mg/dL 0.1-1.0 Urobilinogen) [facility] AND [id number] 01:00:00 Test Item Value Reference Range Interpretation Comments UA Color (test code = Yellow *NA*(02/13/18 UA Color) 7:00 PM) [facility] AND [id number] 01:00:00 Test Item Value Reference Range Interpretation Comments UA Turbidity (test code = Clear (02/13/18 7:00 UA Turbidity) PM) [facility] AND [id number] 01:00:00 Test Item Value Reference Range Interpretation Comments UA Hyal Cast (test 4 See_Comment [Automat ed message] The code = UA Hyal Cast) system which generated this result transmit garrett reference range : <=2. The reference range was not used to interpr et this result as cassie l/abnormal. [facility] AND [id number] 01:00:00 Test Item Value Reference Range Interpretation Comments UA Mucus (test code = UA Mucus) Many /LPF [facility] AND [id number] 01:00:00 Test Item Value Reference Range Interpretation Comments UA WBC (test code = 1 See_Comment [Automa garrett message] The UA WBC) system which ge nerated this result transmit garrett reference range : <=5. The reference range was not used to interpr et this result as cassie l/abnormal. [facility] AND [id number] 01:00:00 Test Item Value Reference Range Interpretation Comments UA Protein (test code Negative (02/13/18 7:00 = UA Protein) PM) [facility] AND [id number] 01:00:00 Test Item Value Reference Range Interpretation Comments UA Spec Grav (test code = UA Spec 1.013 1 Grav) [facility] AND [id number] 01:00:00 Test Item Value Reference Range Interpretation Comments UA pH (test code = UA pH) 6.0 1 5.0-8.0 [facility] AND [id number] 01:00:00 Test Item Value Reference Range Interpretation Comments UA Nitrite (test code Negative (02/13/18 7:00 = UA Nitrite) PM) [facility] AND [id number] 01:00:00 Test Item Value Reference Range Interpretation Comments UA Blood (test code = Negative (02/13/18 7:00 UA Blood) PM) [facility] [id number] 01:00:00 Test Item Value Reference Range Interpretation Comments UA Bili (test code = Negative *NA*(02/13/18 UA Bili) 7:00 PM) [facility] [id number] 01:00:00 Test Item Value Reference Range Interpretation Comments UA Ketones (test code = UA Ketones) Negative [facility] [id number] 01:00:00 Test Item Value Reference Range Interpretation Comments UA Glucose (test code Negative *NA*(02/13/18 = UA Glucose) 7:00 PM) [facility] [id number] 01:00:00 Test Item Value Reference Range Interpretation Comments UA Sq Epi (test code = UA Sq Occasional /LPF Epi) [facility] [id number] 01:00:00 Test Item Value Reference Range Interpretation Comments UA Leuk Est (test Negative (02/13/18 7:00 code = UA Leuk Est) PM) [facility] [id number] 01:00:00 Test Item Value Reference Range Interpretation Comments UA Urobilinogen (test code = UA <=1.0 mg/dL 0.1-1.0 Urobilinogen) [facility] [id number] 01:00:00 Test Item Value Reference Range Interpretation Comments UA Color (test code = Yellow *NA*(02/13/18 UA Color) 7:00 PM) [facility] [id number] 01:00:00 Test Item Value Reference Range Interpretation Comments UA Turbidity (test code = Clear (02/13/18 7:00 UA Turbidity) PM) [facility] [id number] 01:00:00 Test Item Value Reference Range Interpretation Comments UA Hyal Cast (test code = UA Hyal Cast) 4 <=2 [facility] [id number] 01:00:00 Test Item Value Reference Range Interpretation Comments UA Mucus (test code = UA Mucus) Many /LPF [facility] [id number] 22:30:00 Test Item Value Reference Range Interpretation Comments Total CK (test code = Total CK) 26 12-191 [facility] [id number] 22:30:00 Test Item Value Reference Range Interpretation Comments BNP (test code = BNP) 81 [facility] DallasScramblerMailAC [id number] 22:30:00 Test Item Value Reference Range Interpretation Comments Troponin-I (test code = Troponin-I) no gt <=0.40 [facility] [id number] 22:30:00 Test Item Value Reference Range Interpretation Comments Lactic Acid Lvl (test code = Lactic 2.1 0.5-2.2 Acid Lvl) [facility] [id number] 22:30:00 Test Item Value Reference Range Interpretation Comments B/C Ratio (test code = B/C Ratio) 10 1 6-25 [facility] [id number] 22:30:00 Test Item Value Reference Range Interpretation Comments Globulin (test code = Globulin) 4.7 2.7-4.2 [facility] [id number] 22:30:00 Test Item Value Reference Range Interpretation Comments A/G Ratio (test code = A/G Ratio) 0.6 1 0.7-1.6 [facility] [id number] 22:30:00 Test Item Value Reference Range Interpretation Comments Total Protein (test code = Total 7.6 6.4-8.4 Protein) [facility] [id number] 22:30:00 Test Item Value Reference Range Interpretation Comments Bili Total (test code = Bili Total) 0.4 0.2-1.3 [facility] [id number] 22:30:00 Test Item Value Reference Range Interpretation Comments AST (test code = AST) 13 <=37 [facility] [id number] 22:30:00 Test Item Value Reference Range Interpretation Comments Alk Phos (test code = Alk Phos) 95 39-136 [facility] [id number] 22:30:00 Test Item Value Reference Range Interpretation Comments ALT (test code = ALT) 18 <=65 [facility] [id number] 22:30:00 Test Item Value Reference Range Interpretation Comments Albumin Lvl (test code = Albumin Lvl) 2.9 3.5-5.0 [id number] 22:30:00 Test Item Value Reference Range Interpretation Comments D-Dimer (test code = D-Dimer) 0.55 [facility] [id number] 22:30:00 Test Item Value Reference Range Interpretation Comments C-REACTIVE PROTEIN (test code = 48.5 C-REACTIVE PROTEIN) [facility]annCARDIAC [id number] 22:30:00 Test Item Value Reference Range Interpretation Comments Total CK (test code = Total CK) 26 12-191 [facility] [id number] 22:30:00 Test Item Value Reference Range Interpretation Comments BNP (test code = BNP) 81 [facility] [id number] 22:30:00 Test Item Value Reference Range Interpretation Comments Troponin-I (test code no gt See_Comment [Auto mated message] The = Troponin-I) system which g enerated this result transmit garrett reference range : <=0.40. The reference r ondina was not used to interpr et this result as csasie l/abnormal. [facility] [id number] 22:30:00 Test Item Value Reference Range Interpretation Comments Lactic Acid Lvl (test code = Lactic 2.1 0.5-2.2 Acid Lvl) [facility]2018-12-12 22:30:00 Test Item Value Reference Range Interpretation Comments B/C Ratio (test code = B/C Ratio) 10 1 6-25 [facility]2018-12-12 22:30:00 Test Item Value Reference Range Interpretation Comments Globulin (test code = Globulin) 4.7 2.7-4.2 [facility]2018-12-12 22:30:00 Test Item Value Reference Range Interpretation Comments A/G Ratio (test code = A/G Ratio) 0.6 1 0.7-1.6 [facility]2018-12-12 22:30:00 Test Item Value Reference Range Interpretation Comments Total Protein (test code = Total 7.6 6.4-8.4 Protein) [facility]2018-12-12 22:30:00 Test Item Value Reference Range Interpretation Comments Bili Total (test code = Bili Total) 0.4 0.2-1.3 [facility]2018-12-12 22:30:00 Test Item Value Reference Range Interpretation Comments AST (test code = AST) 13 See_Comment [Auto mated message] The system which ge nerated this result transmit garrett reference range : <=37. The reference range was not used to interpr et this result as cassie l/abnormal. [facility] [facility]2018-12-12 22:30:00 Test Item Value Reference Range Interpretation Comments Alk Phos (test code = Alk Phos) 95 39-136 [facility] [id number] 22:30:00 Test Item Value Reference Range Interpretation Comments ALT (test code = ALT) 18 See_Comment [Auto mated message] The system which ge nerated this result transmit garrett reference range : <=65. The reference range was not used to interpr et this result as cassie l/abnormal. [facility]2018-12-12 22:30:00 Test Item Value Reference Range Interpretation Comments Albumin Lvl (test code = Albumin Lvl) 2.9 3.5-5.0 [facility] [id number] 22:30:00 Test Item Value Reference Range Interpretation Comments D-Dimer (test code = D-Dimer) 0.55 [facility] [id number] 22:30:00 Test Item Value Reference Range Interpretation Comments C-REACTIVE PROTEIN (test code = 48.5 C-REACTIVE PROTEIN) [facility]2018-12-12 22:30:00 Test Item Value Reference Range Interpretation Comments Total CK (test code = Total CK) 26 12-191 [facility]2018-12-12 22:30:00 Test Item Value Reference Range Interpretation Comments BNP (test code = BNP) 81 [facility]2018-12-12 22:30:00 Test Item Value Reference Range Interpretation Comments Troponin-I (test code no gt See_Comment [Auto mated message] The = Troponin-I) system which g enerated this result transmit garrett reference range : <=0.40. The reference r ondina was not used to interpr et this result as cassie l/abnormal. [facility]2018-12-12 22:30:00 Test Item Value Reference Range Interpretation Comments Lactic Acid Lvl (test code = Lactic 2.1 0.5-2.2 Acid Lvl) [facility]2018-12-12 22:30:00 Test Item Value Reference Range Interpretation Comments B/C Ratio (test code = B/C Ratio) 10 1 6-25 [facility]2018-12-12 22:30:00 Test Item Value Reference Range Interpretation Comments Globulin (test code = Globulin) 4.7 2.7-4.2 [facility]2018-12-12 22:30:00 Test Item Value Reference Range Interpretation Comments A/G Ratio (test code = A/G Ratio) 0.6 1 0.7-1.6 [facility]2018-12-12 22:30:00 Test Item Value Reference Range Interpretation Comments Total Protein (test code = Total 7.6 6.4-8.4 Protein) [facility]2018-12-12 22:30:00 Test Item Value Reference Range Interpretation Comments Bili Total (test code = Bili Total) 0.4 0.2-1.3 [facility]2018-12-12 22:30:00 Test Item Value Reference Range Interpretation Comments AST (test code = AST) 13 See_Comment [Auto mated message] The system which ge nerated this result transmit garrett reference range : <=37. The reference range was not used to interpr et this result as cassie l/abnormal. [facility]2018-12-12 22:30:00 Test Item Value Reference Range Interpretation Comments Alk Phos (test code = Alk Phos) 95 39-136 [facility]2018-12-12 22:30:00 Test Item Value Reference Range Interpretation Comments ALT (test code = ALT) 18 See_Comment [Auto mated message] The system which ge nerated this result transmit garrett reference range : <=65. The reference range was not used to interpr et this result as cassie l/abnormal. [facility]2018-12-12 22:30:00 Test Item Value Reference Range Interpretation Comments Albumin Lvl (test code = Albumin Lvl) 2.9 3.5-5.0 [id number] 22:30:00 Test Item Value Reference Range Interpretation Comments D-Dimer (test code = D-Dimer) 0.55 [facility] [id number] 22:30:00 Test Item Value Reference Range Interpretation Comments C-REACTIVE PROTEIN (test code = 48.5 C-REACTIVE PROTEIN) [facility]2018-12-12 22:30:00 Test Item Value Reference Range Interpretation Comments Total CK (test code = Total CK) 26 12-191 [facility] Contractually [id number] 22:30:00 Test Item Value Reference Range Interpretation Comments BNP (test code = BNP) 81 [facility]2018-12-12 22:30:00 Test Item Value Reference Range Interpretation Comments Troponin-I (test code no gt See_Comment [Auto mated message] The = Troponin-I) system which g enerated this result transmit garrett reference range : <=0.40. The reference r ondina was not used to interpr et this result as cassie l/abnormal. [facility]2018-12-12 22:30:00 Test Item Value Reference Range Interpretation Comments Lactic Acid Lvl (test code = Lactic 2.1 0.5-2.2 Acid Lvl) [facility]2018-12-12 22:30:00 Test Item Value Reference Range Interpretation Comments B/C Ratio (test code = B/C Ratio) 10 1 6-25 [facility]2018-12-12 22:30:00 Test Item Value Reference Range Interpretation Comments Globulin (test code = Globulin) 4.7 2.7-4.2 [facility]2018-12-12 22:30:00 Test Item Value Reference Range Interpretation Comments A/G Ratio (test code = A/G Ratio) 0.6 1 0.7-1.6 [facility]2018-12-12 22:30:00 Test Item Value Reference Range Interpretation Comments Total Protein (test code = Total 7.6 6.4-8.4 Protein) [facility]2018-12-12 22:30:00 Test Item Value Reference Range Interpretation Comments Bili Total (test code = Bili Total) 0.4 0.2-1.3 [facility]2018-12-12 22:30:00 Test Item Value Reference Range Interpretation Comments AST (test code = AST) 13 See_Comment [Auto mated message] The system which ge nerated this result transmit garertt reference range : <=37. The reference range was not used to interpr et this result as cassie l/abnormal. [facility] [employer] [id number] 22:30:00 Test Item Value Reference Range Interpretation Comments Alk Phos (test code = Alk Phos) 95 39-136 [facility] DallasFieldSolutions [id number] 22:30:00 Test Item Value Reference Range Interpretation Comments ALT (test code = ALT) 18 See_Comment [Auto mated message] The system which ge nerated this result transmit garrett reference range : <=65. The reference range was not used to interpr et this result as cassie l/abnormal. [facility] [employer] [id number] 22:30:00 Test Item Value Reference Range Interpretation Comments Albumin Lvl (test code = Albumin Lvl) 2.9 3.5-5.0 [facility] [id number] 22:30:00 Test Item Value Reference Range Interpretation Comments D-Dimer (test code = D-Dimer) 0.55 [facility] [id number] 22:30:00 Test Item Value Reference Range Interpretation Comments C-REACTIVE PROTEIN (test code = 48.5 C-REACTIVE PROTEIN) [facility] DallasOscarCARThe Luxe NomadAC [id number] 22:30:00 Test Item Value Reference Range Interpretation Comments Total CK (test code = Total CK) 26 12-191 [facility] DallaseCareDiary [id number] 22:30:00 Test Item Value Reference Range Interpretation Comments BNP (test code = BNP) 81 [facility]2018-12-12 22:30:00 Test Item Value Reference Range Interpretation Comments Troponin-I (test code = Troponin-I) no gt <=0.40 [facility] [employer] [id number] 22:30:00 Test Item Value Reference Range Interpretation Comments Lactic Acid Lvl (test code = Lactic 2.1 0.5-2.2 Acid Lvl) [facility] [employer] [id number] 22:30:00 Test Item Value Reference Range Interpretation Comments B/C Ratio (test code = B/C Ratio) 10 1 6-25 [facility] [employer] [id number] 22:30:00 Test Item Value Reference Range Interpretation Comments Globulin (test code = Globulin) 4.7 2.7-4.2 [facility]2018-12-12 22:30:00 Test Item Value Reference Range Interpretation Comments A/G Ratio (test code = A/G Ratio) 0.6 1 0.7-1.6 [facility]2018-12-12 22:30:00 Test Item Value Reference Range Interpretation Comments Total Protein (test code = Total 7.6 6.4-8.4 Protein) [facility]2018-12-12 22:30:00 Test Item Value Reference Range Interpretation Comments Bili Total (test code = Bili Total) 0.4 0.2-1.3 [facility]2018-12-12 22:30:00 Test Item Value Reference Range Interpretation Comments AST (test code = AST) 13 <=37 [facility]2018-12-12 22:30:00 Test Item Value Reference Range Interpretation Comments Alk Phos (test code = Alk Phos) 95 39-136 [facility]2018-12-12 22:30:00 Test Item Value Reference Range Interpretation Comments ALT (test code = ALT) 18 <=65 [facility]2018-12-12 22:30:00 Test Item Value Reference Range Interpretation Comments Albumin Lvl (test code = Albumin Lvl) 2.9 3.5-5.0 [facility] [id number] 22:30:00 Test Item Value Reference Range Interpretation Comments D-Dimer (test code = D-Dimer) 0.55 [facility] [id number] 22:30:00 Test Item Value Reference Range Interpretation Comments C-REACTIVE PROTEIN (test code = 48.5 C-REACTIVE PROTEIN) [facility] [id number] 22:30:00 Test Item Value Reference Range Interpretation Comments Total CK (test code = Total CK) 26 12-191 [facility] [id number] 22:30:00 Test Item Value Reference Range Interpretation Comments BNP (test code = BNP) 81 [facility] [id number] 22:30:00 Test Item Value Reference Range Interpretation Comments Troponin-I (test code no gt See_Comment [Auto mated message] The = Troponin-I) system which g enerated this result transmit garrett reference range : <=0.40. The reference r ondina was not used to interpr et this result as cassie l/abnormal. [facility]2018-12-12 22:30:00 Test Item Value Reference Range Interpretation Comments Lactic Acid Lvl (test code = Lactic 2.1 0.5-2.2 Acid Lvl) [facility]2018-12-12 22:30:00 Test Item Value Reference Range Interpretation Comments B/C Ratio (test code = B/C Ratio) 10 1 6-25 [place] [id number] 22:30:00 Test Item Value Reference Range Interpretation Comments Globulin (test code = Globulin) 4.7 2.7-4.2 [facility]2018-12-12 22:30:00 Test Item Value Reference Range Interpretation Comments A/G Ratio (test code = A/G Ratio) 0.6 1 0.7-1.6 [place] [id number] 22:30:00 Test Item Value Reference Range Interpretation Comments Total Protein (test code = Total 7.6 6.4-8.4 Protein) [facility]2018-12-12 22:30:00 Test Item Value Reference Range Interpretation Comments Bili Total (test code = Bili Total) 0.4 0.2-1.3 [facility]2018-12-12 22:30:00 Test Item Value Reference Range Interpretation Comments AST (test code = AST) 13 See_Comment [Auto mated message] The system which ge nerated this result transmit garrett reference range : <=37. The reference range was not used to interpr et this result as cassie l/abnormal. [facility]2018-12-12 22:30:00 Test Item Value Reference Range Interpretation Comments Alk Phos (test code = Alk Phos) 95 39-136 [facility]2018-12-12 22:30:00 Test Item Value Reference Range Interpretation Comments ALT (test code = ALT) 18 See_Comment [Auto mated message] The system which ge nerated this result transmit garrett reference range : <=65. The reference range was not used to interpr et this result as cassie l/abnormal. [place] [id number] 22:30:00 Test Item Value Reference Range Interpretation Comments Albumin Lvl (test code = Albumin Lvl) 2.9 3.5-5.0 [facility] [id number] 22:30:00 Test Item Value Reference Range Interpretation Comments D-Dimer (test code = D-Dimer) 0.55 [facility] [id number] 22:30:00 Test Item Value Reference Range Interpretation Comments C-REACTIVE PROTEIN (test code = 48.5 C-REACTIVE PROTEIN) [facility]
[2023-01-15 19:36] LABS: Potassium 3.6 mEq/L (3.5-5.1); Troponin High Sensitivity 6.5 pg/mL (<58.9)
[2023-01-15] MEDS ORDERED: ASPIRIN 81 MG CHEWABLE TABLET ONE (19:38)
[2023-01-15] MEDS ORDERED: ONDANSETRON 4 MG/2 ML VIAL ONE (19:39)
--- NOTE | 2023-01-15 19:42 | RAD REPORT ---
EXAM DESCRIPTION: Hari Single View01/15/2023 7:26 pm CLINICAL HISTORY: Shortness of breath COMPARISON: December 2022 FINDINGS: The lungs appear clear of acute infiltrate. The heart is normal size IMPRESSION: No acute abnormalities displayed
--- NOTE | 2023-01-15 19:49 | EDPHYS ---
Physician Documentation [facility] Name: Fred Hardy Age: 67 yrs Sex: Male : 1955 Arrival Date: 01/15/2023 Time: 18:35 Bed 4 Private MD: ED Physician Ulisses Hinton HPI: 01/15 18:48 This 67 yrs old Male presents to ER via Wheelchair with complaints of Breathing rn Difficulty. 18:48 The patient has shortness of breath at rest. Onset: The symptoms/episode began/occurred rn 1 hour(s) ago. Duration: The symptoms are continuous, and are unchanged since they started. The patient's shortness of breath is aggravated by nothing, is alleviated by nothing. Severity of symptoms: At their worst the symptoms were moderate in the emergency department the symptoms are unchanged. The patient has experienced similar episodes in the past. Patient reports shortness of breath that began about an hour ago. Has multiple visits recently in the last 1 showing abnormal stress test. Told needs heart cath but had issues getting it. Had a CABG 5 years ago. No fever. No cough.. Historical: - Allergies: 18:45 IV contrast; cm10 18:45 PENICILLINS; cm10 - PMHx: 18:45 coronary atherosclerosis; Hyperlipidemia; Hypertension; Myocardial infarction; cm10 Transient cerebral ischemia; - PSHx: 18:45 Coronary Angioplasty; Coronary artery bypass graft; umbilical hernia repair; cm10 - Immunization history:: Adult Immunizations unknown. - Social history:: Smoking status: Patient denies any tobacco usage or history of. - Family history:: not pertinent. - Hospitalizations: : The patient was recently seen at [facility]. ROS: 18:48 Constitutional: Negative for fever, chills, and weight loss, Eyes: Negative for injury, rn pain, redness, and discharge, Neck: Negative for injury, pain, and swelling, Cardiovascular: Negative for palpitations, and edema, Respiratory: Positive for shortness of breath Abdomen/GI: Negative for abdominal pain, nausea, vomiting, diarrhea, and constipation, MS/Extremity: Negative for injury and deformity, Skin: Negative for injury, rash, and discoloration, Neuro: Negative for headache, weakness, numbness, tingling, and seizure, Exam: 18:48 Constitutional: This is a well developed, well nourished patient who is awake, alert, rn appears anxious and hyperventilating, tearful Head/Face: Normocephalic, atraumatic. Cardiovascular: Regular rate and rhythm. No pulse deficits. Respiratory: Hyperventilating, able to slow his breathing and answer questions. Abdomen/GI: Soft, non-tender Skin: Warm, dry with normal turgor. Normal color with no rashes, no lesions, and no evidence of cellulitis. MS/ Extremity: Pulses equal, no cyanosis. Neurovascular intact. Full, normal range of motion. Equal circumference. Neuro: Awake and alert, GCS 15 20:38 ECG was reviewed by the Attending Physician. rn Vital Signs: 18:45 BP 127 / 73; Pulse 77; Resp 20; Temp 98.4(O); Pulse Ox 99% on R/A; Weight 86.18 kg; cm10 Height 6 ft. 0 in. ; Pain 8/10; 18:46 BP 127 / 73; Pulse 75; Resp 17; Pulse Ox 98% ; ld1 19:31 BP 107 / 63; Pulse 57; Resp 16; Pulse Ox 96% on R/A; jb4 21:12 BP 101 / 65; Pulse 57; Resp 16; Pulse Ox 96% on R/A; jb4 18:45 Body Mass Index 25.77 (86.18 kg, 182.88 cm) cm10 18:45 Pain Scale: Adult cm10 MDM: 18:38 Patient medically screened. rn 19:47 Differential diagnosis: Anxiety Reaction CHF exacerbation, Myocardial Infarction rn pneumonia, Pneumothorax pulmonary edema, Unstable Angina. Data reviewed: vital signs, nurses notes, lab test result(s), EKG, radiologic studies, plain films, and as a result, I will admit patient. Consideration of Admission/Observation Patient was admitted/placed on observation. Escalation of care including admission/observation considered. Independent interpretation of the following test(s) in the Emergency Department EKG: See my EKG interpretation above X-Ray: My interpretation is Chest x-ray images negative for pneumothorax per my interpretation. Counseling: I had a detailed discussion with the patient and/or guardian regarding the historical points, exam findings, and any diagnostic results supporting the discharge/admit diagnosis, lab results, radiology results, the need for further work-up and treatment in the hospital. Response to treatment: the patient's symptoms have mildly improved after treatment, and as a result, I will admit patient. ED course: Troponin negative but chart review shows abnormal stress test last admission. Patient did not have a heart cath at that time. Will admit patient for further evaluation and cardiology consult.. 19:47 Care significantly affected by the following chronic conditions: Hypertension. rn 20:39 ED course: Patient feeling much better, chest pain-free, no longer has dyspnea.. rn 01/15 18:43 Order name: Basic Metabolic Panel; Complete Time: 19:37 rn 01/15 18:43 Order name: CBC with Diff; Complete Time: 19:25 rn 01/15 18:43 Order name: NT PRO-BNP; Complete Time: 19:37 rn 01/15 18:43 Order name: PT-INR; Complete Time: 19:25 rn 01/15 18:43 Order name: Troponin HS; Complete Time: 19:37 rn 01/15 20:11 Order name: Urinalysis w/ reflexes [facility] 01/15 20:11 Order name: CBC with Automated Diff [facility] 01/15 20:11 Order name: CBC with Automated Diff [facility] 01/15 20:11 Order name: Comprehensive Metabolic Panel [facility] 01/15 20:11 Order name: Comprehensive Metabolic Panel [facility] 01/15 20:11 Order name: Creatine Phosphokinase [facility] 01/15 20:11 Order name: Creatine Phosphokinase [facility] 01/15 20:11 Order name: Creatine Phosphokinase [facility] 01/15 20:11 Order name: Lipid Profile [facility] 01/15 20:11 Order name: Lipid Profile [facility] 01/15 20:11 Order name: Magnesium [facility] 01/15 20:11 Order name: Magnesium [facility] 01/15 20:11 Order name: Protime (+INR) [facility] 01/15 20:11 Order name: Protime (+INR) [facility] 01/15 20:11 Order name: PTT, Activated Partial Thromb [facility] 01/15 20:11 Order name: PTT, Activated Partial Thromb [facility] 01/15 18:43 Order name: XRAY Chest (1 view); Complete Time: 19:47 01/15 20:11 Order name: Chest Pa And Lat (2 Views) [facility] 01/15 20:11 Order name: Chest Pa And Lat (2 Views) [facility] 01/15 18:43 Order name: EKG; Complete Time: 18:43 rn 01/15 20:11 Order name: CONS Physician Consult [facility] 01/15 20:11 Order name: EKG Electrocardiogram [facility] 01/15 20:11 Order name: EKG Electrocardiogram [facility] 01/15 18:43 Order name: Cardiac monitoring; Complete Time: 18:45 rn 01/15 18:43 Order name: EKG - Nurse/Tech; Complete Time: 18:45 rn 01/15 18:43 Order name: IV Saline Lock; Complete Time: 18:50 rn 01/15 18:43 Order name: Labs collected and sent; Complete Time: 18:50 rn 01/15 18:43 Order name: O2 Per Protocol; Complete Time: 18:45 rn 01/15 18:43 Order name: O2 Sat Monitoring; Complete Time: 18:45 rn EC:38 Rate is 74 beats/min. Rhythm is regular. QRS [place] is Normal. MD interval is normal. QRS rn interval is normal. QT interval is normal. No Q waves. T waves are Normal. No ST changes noted. Clinical impression: NSR w/ Non-specific ST/T Changes. Interpreted by me. Reviewed by me. Administered Medications: 19:31 Drug: Aspirin PO Chewable Tablet 324 mg PO once; 81 mg tablets x 4 Route: PO; jb4 19:31 Drug: morphine IVP or IV 4 mg IVP once over 4 mins Route: IVP; Infused Over: 4 mins; jb4 Site: left antecubital; 19:31 Drug: Ondansetron IVP 4 mg IVP once; over 2 minutes Route: IVP; Site: left antecubital; jb4 21:12 Drug: fentaNYL (PF) IVP 50 mcg IVP once Route: IVP; Site: left antecubital; jb4 Disposition Summary: 01/15/23 19:49 Hospitalization Ordered Notes: Hospitalization Status: Observation rn Provider: Janet Zapata rn Location: Telemetry/MedSurg (observation) rn Condition: Stable rn Problem: an ongoing problem rn Symptoms: have improved rn Bed/Room Type: Standard rn Room Assignment: 407(01/15/23 20:36) cg Diagnosis - Dyspnea, unspecified rn - Chest pain, unspecified rn Forms: - Medication Reconciliation Form rn - SBAR form rn - Leadership Thank You Letter rn Signatures: Dispatcher [employer] Ulisses Goode MD MD rn Garcia, Cindy, RN RN cg Willie Mendez RN RN jb4 Lisa Sharp RN RN cm10 Corrections: (The following items were deleted from the chart) 20:36 19:49 irma haq
--- NOTE | 2023-01-15 19:49 | ER ---
Nurse's Notes [facility] Name: Fred Hardy Age: 67 yrs Sex: Male : 1955 Arrival Date: 01/15/2023 Time: 18:35 Bed 4 Private MD: Diagnosis: Dyspnea, unspecified;Chest pain, unspecified Presentation: 01/15 18:45 Chief complaint: Patient states: shortness of breath onset 1hr [employer]. Pt also reports cm10 chest pain to the center of his chest. Coronavirus screen: Vaccine status: Patient reports being unvaccinated. Client denies travel out of the [place] in the last 14 days. Ebola Screen: Patient denies travel to an Ebola-affected area in the 21 days before illness onset. No symptoms or risks identified at this time. Initial Sepsis Screen: Does the patient meet any 2 criteria? No. Patient's initial sepsis screen is negative. Does the patient have a suspected source of infection? No. Patient's initial sepsis screen is negative. Risk Assessment: Do you want to hurt yourself or someone else? Patient reports no desire to harm self or others. Onset of symptoms was January 15, 2023. 18:45 Method Of Arrival: Wheelchair cm10 18:45 Acuity: JOSÉ MIGUEL 2 cm10 Historical: - Allergies: 18:45 IV contrast; cm10 18:45 PENICILLINS; cm10 - PMHx: 18:45 coronary atherosclerosis; Hyperlipidemia; Hypertension; Myocardial infarction; cm10 Transient cerebral ischemia; - PSHx: 18:45 Coronary Angioplasty; Coronary artery bypass graft; umbilical hernia repair; cm10 - Immunization history:: Adult Immunizations unknown. - Social history:: Smoking status: Patient denies any tobacco usage or history of. - Family history:: not pertinent. - Hospitalizations: : The patient was recently seen at [facility]. Screenin:51 [facility] ED Fall Risk Assessment (Adult) History of falling in the last 3 months, mb9 including since admission No falls in past 3 months (0 pts) Confusion or Disorientation No (0 pts) Intoxicated or Sedated No (0 pts) Impaired Gait No (0 pts) Mobility Assist Device Used No (0 pt) Altered Elimination No (0 pt) Score/Fall Risk Level 0 - 2 = Low Risk Oriented to surroundings, Maintained a safe environment, Educated pt \T\ family on fall prevention, incl call for assistance when getting out of bed. Abuse screen: Denies threats or abuse. Nutritional screening: No deficits noted. Tuberculosis screening: No symptoms or risk factors identified. Assessment: 18:48 General: Appears uncomfortable, Behavior is anxious, crying. Pain: Complains of pain in mb9 chest Pain does not radiate. Pain currently is 10 out of 10 on a pain scale. Neuro: Britt Agitation-Sedation Scale (RASS): 0 - Alert and Calm Level of Consciousness is awake, alert, obeys commands, Oriented to person, place, time, situation, Appropriate for age. Cardiovascular: Reports chest pain, shortness of breath, Heart tones S1 S2 present Patient's skin is warm and dry. Cardiovascular: Rhythm is regular. Respiratory: Airway is patent Respiratory effort is even, unlabored, Respiratory pattern is regular, symmetrical. Respiratory: Reports shortness of breath Breath sounds are clear bilaterally. GI: Abdomen is round non-distended, Bowel sounds present X 4 quads. : No signs and/or symptoms were reported regarding the genitourinary system. EENT: No signs and/or symptoms were reported regarding the EENT system. Derm: Skin is pink, warm \T\ dry. Musculoskeletal: Range of motion: intact in all extremities. 19:14 Reassessment: Patient appears in no apparent distress at this time. Patient and/or jb4 family updated on plan of care and expected duration. Pain level reassessed. Patient is alert, oriented x 3, equal unlabored respirations, skin warm/dry/pink. Pt requesting pain medications, provider notified. See MAR for orders. 20:30 Reassessment: Patient appears in no apparent distress at this time. Patient and/or jb4 family updated on plan of care and expected duration. Pain level reassessed. Patient is alert, oriented x 3, equal unlabored respirations, skin warm/dry/pink. 21:38 Reassessment: Patient appears in no apparent distress at this time. Patient and/or jb4 family updated on plan of care and expected duration. Pain level reassessed. Patient is alert, oriented x 3, equal unlabored respirations, skin warm/dry/pink. Vital Signs: 18:45 BP 127 / 73; Pulse 77; Resp 20; Temp 98.4(O); Pulse Ox 99% on R/A; Weight 86.18 kg; cm10 Height 6 ft. 0 in. ; Pain 8/10; 18:46 BP 127 / 73; Pulse 75; Resp 17; Pulse Ox 98% ; ld1 19:31 BP 107 / 63; Pulse 57; Resp 16; Pulse Ox 96% on R/A; jb4 21:12 BP 101 / 65; Pulse 57; Resp 16; Pulse Ox 96% on R/A; jb4 18:45 Body Mass Index 25.77 (86.18 kg, 182.88 cm) cm10 18:45 Pain Scale: Adult cm10 ED Course: 18:36 Patient arrived in ED. rg4 18:38 Ulisses Hinton MD is Attending Physician. rn 18:46 Triage completed. cm10 18:46 Arm band placed on Patient placed in an exam room, on a stretcher, on security monitor, cm10 on pulse oximetry. 18:48 Gayle Barr, RN is Primary Nurse. mb9 18:48 EKG done, by ED staff, reviewed by Ulisses Hinton MD. mb9 18:50 Basic Metabolic Panel Sent. mb9 18:50 CBC with Diff Sent. mb9 18:50 NT PRO-BNP Sent. mb9 18:50 PT-INR Sent. mb9 18:50 Troponin HS Sent. mb9 18:51 Placed in gown. Bed in low position. Call light in reach. Side rails up X 1. Client mb9 placed on continuous cardiac and pulse oximetry monitoring. NIBP monitoring applied. monitor worker on. 18:54 Inserted saline lock: 20 gauge in left forearm, using aseptic technique. Blood ds4 collected. Missed attempt(s): 18 gauge in left antecubital area. Bleeding controlled, band aid applied, catheter tip intact. 19:05 Report given to Haydee. mb9 19:28 XRAY Chest (1 view) In Process Unspecified. EDMS 19:48 Janet Zapata MD is Hospitalizing Provider. rn 21:38 No provider procedures requiring assistance completed. Patient admitted, IV remains in jb4 place. Administered Medications: 19:31 Drug: Aspirin PO Chewable Tablet 324 mg PO once; 81 mg tablets x 4 Route: PO; jb4 19:31 Drug: morphine IVP or IV 4 mg IVP once over 4 mins Route: IVP; Infused Over: 4 mins; jb4 Site: left antecubital; 19:31 Drug: Ondansetron IVP 4 mg IVP once; over 2 minutes Route: IVP; Site: left antecubital; jb4 21:12 Drug: fentaNYL (PF) IVP 50 mcg IVP once Route: IVP; Site: left antecubital; jb4 Outcome: 19:49 Decision to Hospitalize by Provider. rn 21:38 Discharged to home ambulatory, jb4 21:38 Condition: stable 21:38 Discharge instructions given to patient, family, Instructed on the need for admit, Demonstrated understanding of instructions, 21:39 Patient left the ED. jb4 Signatures: Dispatcher [employer] EDMS Ulisses Hinton MD MD rn Swanson, Donovan ds4 Elisa Rodriguez4 Willie Mendez RN RN jb4 Jennifer Shah RN RN ld1 Momo, Gayle Leslie, RN RN mb9 Lisa Sharp RN RN cm10
[2023-01-15] MEDS: INSULIN REGULAR (HUMAN) 100 UNIT/ML SQ SCH (21:00)
[2023-01-15] MEDS ORDERED: FENTANYL CITR 100 MCG/2 ML ONE (21:21)
[2023-01-15 22:19] VITALS: BMI 26.4
[2023-01-15] MEDS ORDERED: HYDROCODONE/APAP 5/325 MG TAB PO ONE (23:03)
[2023-01-15] MEDS: NA CHLORIDE 0.9% 1,000 ML IV SCH (23:09)
[2023-01-15] MEDS: HEPARIN/D5W 25,000 UNIT/500 ML BAG IV SCH (23:40)
[2023-01-16 04:35] LABS: Protime INR 0.95
[2023-01-16 04:41] LABS: Absolute Lymphocytes (CBC) 2.6 K/uL (0.7-4.9); Hematocrit 40.8 % (39.6-49.0); Lymphocytes % 35.5 % (15.3-44.8); MPV 9.1 fL (7.6-11.3); Platelets 183 thou/uL (152-406)
[2023-01-16 04:51] LABS: Albumin 2.8 g/dL (3.4-5.0); Bilirubin Total 0.1 mg/dL (0.2-1.0); Magnesium 2.1 mg/dL (1.6-2.4); Potassium 3.9 mEq/L (3.5-5.1); Protein, Total 6.1 g/dL (6.4-8.2)
--- NOTE | 2023-01-16 05:23 | P.HP ---
Certification for Inpatient With expected LOS: >2 Midnights Patient will require the following post-hospital care: None Practitioner: I am a practitioner with admitting privileges, knowledge of patient current condition, hospital course, and medical plan of care. Services: Services provided to patient in accordance with Admission requirements found in Title 42 Section 412.3 of the Code of Federal Regulations Patient History Date of Service: 01/16/23 Primary Care Provider: Dr. Morocho Reason for admission: Chest pain History of Present Illness: Mr. Hardy is a 67 yo patient who lives alone. He had a quadruple bypass in 2018. He states he had a [place] July 29, 2022 and received one stent. Mr. Hardy has had stuttering chest pain increasing in frequency over the past 3-4 months. He states he feels like he is dying. He was frightened enough last week that he called his Sister to come sit with him. He states he gets SOB and then is not able to sleep for fear he is not going to wake. Mr. Hardy was here at [facility] last month with atypical chest pain, relatively normal ECHO, negative cardiac enzymes, but NM stress test showed "small to moderate partially reversible perfusion defect involving the inferior apical left ventricular myocardium. May indicate infarct with adelaide infarct ischemia." Allergies Iodinated Contrast Media Allergy (Verified 01/15/23 22:18) Itching Penicillins Allergy (Verified 01/15/23 22:18) Hives/Rash Home medications list reviewed: Yes Home Medications: Aspirin [Ecotrin 81 MG] 81 mg PO DAILY #30 tab 12/22/22 Clopidogrel Bisulfate [Plavix] 75 mg PO DAILY #30 tab 12/22/22 Clopidogrel Bisulfate [Plavix] 75 mg PO DAILY #30 tab 12/22/22 Losartan Potassium 50 mg PO DAILY #30 tab 12/22/22 Metoprolol Tartrate [Lopressor] 50 mg PO BID #60 tab 12/22/22 - Past Medical/Surgical History Has patient received pneumonia vaccine in the past: No Diabetic: No -: HTN -: HLD -: NH sp CAB, PCI -: CAB -: PCI Psychosocial/ Personal History: lives alone in an apartment - Family History Family History: Reviewed- Non-Contributory - Social History Smoking Status: Former smoker Alcohol use: No CD- Drugs: No Caffeine use: Yes Place of Residence: Home (alone in an apartment) Review of Systems 10-point ROS is otherwise unremarkable Cardiovascular: As per HPI Musculoskeletal: Other (s/p CVA right arm mild weakness, Left mild facial droop, left foot ) Physical Examination - Vital Signs Temperature: 97.3 F Blood Pressure: 115/68 Pulse: 63 Respirations: 18 Pulse Ox (%): 96 - Physical Exam General: Alert, Oriented x3, Other (anxious) HEENT: Normocephalic Neck: 2+ carotid pulse no bruit, JVD not distended Respiratory: Clear to auscultation bilaterally, Normal air movement Cardiovascular: No edema, Normal pulses, Normal S1 S2 Capillary refill: <2 Seconds Gastrointestinal: Normal bowel sounds Musculoskeletal: No clubbing, No swelling Integumentary: No rashes Neurological: Normal speech, Normal strength at 5/5 x4 extr External genitalia: Deferred Rectal: Deferred - Studies Laboratory Data (last 24 hrs) 01/15/23 01/15/23 01/15/23 18:48 18:48 18:48 WBC 7.10 Hgb 15.2 Hct 44.4 Plt Count 221 PT 11.2 INR 1.02 Sodium 141 Potassium 3.6 BUN 17 Creatinine 1.13 Glucose 100 Assessment and Plan - Problems (Diagnosis) (1) Angina at rest Current Visit: Yes Status: Acute Plan: Serial enzymes, telemetry, pain management, calm environment, trend vital signs, will start aspirin, Heparin drip without bolus and keep NPO and await Dr. Perez consult Discharge Plan: Home - Advance Directives Does patient have a Living Will: No Does patient have a Durable POA for Healthcare: No - Code Status/Comfort Care Code Status Assessed: Yes (full) Critical Care: No Time Spent Managing Pts Care (In Minutes): 60
[2023-01-16] MEDS: NA CHLORIDE 0.9% 1,000 ML IV SCH ×2 (06:00→16:00)
--- NOTE | 2023-01-16 07:19 | RAD REPORT ---
EXAM DESCRIPTION: RAD - Chest Pa And Lat (2 Views) - 01/16/2023 4:44 am CLINICAL HISTORY: paroxysmal dyspnea COMPARISON: Chest Single View dated 01/15/2023; Chest Single View dated 12/21/2022; Chest Single Vie w dated 10/19/2022; Chest Single View dated 08/31/2022 FINDINGS: Lines: None. Lungs: No evidence of edema or pneumonia. Linear opacities in lung bases likely reflecting scarring w hich are unchanged. Pleural: No significant pleural effusions or pneumothorax. Cardiac: The heart size is within normal limits. Mediastinum: Within normal limits. Bones: No acute fractures. Other: None IMPRESSION: No acute cardiopulmonary disease.
[2023-01-16] MEDS: INSULIN REGULAR (HUMAN) 100 UNIT/ML SQ SCH ×4 (07:30→20:43)
[2023-01-16] MEDS ORDERED: INFLUENZA VACCINE (for 6+ mo) 0.5 ML DOSE IMVAC ONE (08:00)
[2023-01-16] MEDS ORDERED: PNEUMOCOCCAL VACCINE 0.5 ML IMVAC ONE (08:00)
[2023-01-16] MEDS ORDERED: POTASSIUM CL SA 10 MEQ TAB PO ONE (09:00)
--- NOTE | 2023-01-16 12:51 | P.PN ---
Subjective Date of Service: 01/16/23 Primary Care Provider: Dr. Morocho Chief Complaint: Chest pain Subjective: No new changes, Improving, Doing well Patient is alert and oriented Denies CP ir discomfort On Heparin IV infusion No acute distress Patient is NPO fpr possible cardiac cath History of Present Illness: Mr. Hardy is a 67 yo patient who lives alone. He had a quadruple bypass in 2018. He states he had a [place] July 29, 2022 and received one stent. Mr. Hardy has had stuttering chest pain increasing in frequency over the past 3-4 months. He states he feels like he is dying. He was frightened enough last week that he called his Sister to come sit with him. He states he gets SOB and then is not able to sleep for fear he is not going to wake. Mr. Hardy was here at [facility] last month with atypical chest pain, relatively normal ECHO, negative cardiac enzymes, but NM stress test showed "small to moderate partially reversible perfusion defect involving the inferior apical left ventricular myocardium. May indicate infarct with adelaide infarct ischemia." Review of Systems 10-point ROS is otherwise unremarkable Physical Examination - Vital Signs Temperature: 97.2 F Blood Pressure: 81/44 Pulse: 44 Respirations: 15 Pulse Ox (%): 93 - Physical Exam General: Alert, Oriented x3 HEENT: Atraumatic, Normocephalic Neck: Supple, 2+ carotid pulse no bruit Respiratory: Clear to auscultation bilaterally, Normal air movement Cardiovascular: No edema, Normal pulses, Regular rate/rhythm, Normal S1 S2 Capillary refill: <2 Seconds Gastrointestinal: Normal bowel sounds, Soft and benign Musculoskeletal: No clubbing, No swelling Integumentary: No rashes, No breakdown Neurological: Normal gait, Normal speech, Normal affect - Studies Laboratory Data (last 24 hrs) 01/15/23 01/15/23 01/15/23 18:48 18:48 18:48 WBC 7.10 Hgb 15.2 Hct 44.4 Plt Count 221 PT 11.2 INR 1.02 Sodium 141 Potassium 3.6 BUN 17 Creatinine 1.13 Glucose 100 Assessment And Plan - Current Problems (Diagnosis) (1) Angina at rest Current Visit: Yes Status: Acute Plan: Acute, patient came in with SOB, -Elvated Tropi. No EKG changes Serial enzymes, telemetry, pain management, calm environment, trend vital signs, will start aspirin, Heparin ip without bolus and keep NPO and await Dr. 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 Perez consult (3) HTN (hypertension) Current Visit: Yes Status: Acute Qualifiers: Hypertension type: primary hypertension Qualified Code(s): I10 - Essential (primary) hypertension Discharge Plan: Home Plan to discharge in: 24 Hours - Code Status/Comfort Care Code Status Assessed: Yes (full code) Code Status: Full Code Physician Review: Patient Assessed, Agree with Above Assessment and Plan Critical Care: No Time Spent Managing PTS Care (In Minutes): 35 (minues)
[2023-01-16] MEDS ORDERED: FENTANYL CITR 100 MCG/2 ML IV ONE (17:09)
[2023-01-16 17:43] LABS: Potassium 3.9 mEq/L (3.5-5.1); Troponin High Sensitivity 6.5 pg/mL (<58.9)
[2023-01-16] MEDS: HEPARIN/D5W 25,000 UNIT/500 ML BAG IV SCH (21:48)
[2023-01-17] MEDS: NA CHLORIDE 0.9% 1,000 ML IV SCH ×2 (02:00→10:30)
[2023-01-17 04:27] LABS: Potassium 3.8 mEq/L (3.5-5.1)
[2023-01-17] MEDS: INSULIN REGULAR (HUMAN) 100 UNIT/ML SQ SCH ×2 (07:30→10:30)
--- NOTE | 2023-01-17 08:10 | P.PN ---
Subjective Date of Service: 01/17/23 Primary Care Provider: Dr. Morocho Chief Complaint: Chest pain Review of Systems 10-point ROS is otherwise unremarkable Physical Examination - Vital Signs Temperature: 98.0 F Blood Pressure: 135/60 Pulse: 44 Respirations: 16 Pulse Ox (%): 97 - Physical Exam General: Alert, In no apparent distress, Oriented x3 HEENT: Atraumatic, Normocephalic, PERRLA Neck: Supple, 2+ carotid pulse no bruit, JVD not distended Respiratory: Clear to auscultation bilaterally, Normal air movement Cardiovascular: No edema, Normal pulses, Regular rate/rhythm Capillary refill: <2 Seconds Gastrointestinal: Normal bowel sounds, Soft and benign Musculoskeletal: Other (ight arm mild weakness, Left mild facial droop, left foot) Integumentary: No rashes, No breakdown Neurological: Other (ight arm mild weakness, Left mild facial droop, left foot) Assessment And Plan - Plan Assessment plan Atypical chest pain chest pain rule out DE CAD history of CABG Hyperlipidemia NSTEMI Heparin drip HX CAD quadruple bypass in 2018. He states he had a [place] July 29, 2022 and received one stent. Mr. Hardy has had stuttering chest pain increasing in frequency over the past 3-4 months. He states he feels like he is dying. [facility] last month with atypical chest pain, relatively normal ECHO, negative cardiac enzymes, but NM stress test showed "small to moderate partially reversible perfusion defect involving the inferior apical left ventricular myocardium. May indicate infarct with adelaide infarct ischemia." Plan for PCI Dr Perez 01/17 Findings: 1. Left main; large and normal. 2. LAD; proximal 80%, mid 80% to 90% and then mid to distal right before the JOHNSON graft, there is 80% stenosis. 3. Left circumflex; very small with proximal 80% stenosis. 4. 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 Graft Study: 1. Patent SVG to PDA and the PDA holds the stent, that is widely patent. 2. Patent SVG to diagonal. 3. Patent JOHNSON to LAD, which seems to be functional as a jump graft to diagonal and then to the LAD. Conclusion: Severe [place] coronary artery disease, multivessel with patent grafts as outlined above History of CVA (s/p CVA right arm mild weakness, Left mild facial droop, left foot ) Fall precautions DVT cardiac Full code Diet cardiac Discharge Plan: Home Plan to discharge in: 48 Hours - Code Status/Comfort Care Code Status: Full Code Physician Review: Patient Assessed, Agree with Above Assessment and Plan Critical Care: No Time Spent Managing PTS Care (In Minutes): 35
[2023-01-17] MEDS ORDERED: HEPA 1000U/500MLS 2,000 UNIT/1,000 ML BAG IV ONE (10:52)
[2023-01-17] MEDS ORDERED: MIDAZOLAM HCL 2 MG/2 ML INJ ONE (10:53)
[2023-01-17] MEDS ORDERED: FENTANYL CITR 100 MCG/2 ML ONE (10:53)
[2023-01-17] MEDS ORDERED: CLOPIDOGREL 75 MG TABLET ONE (10:54)
[2023-01-17] MEDS ORDERED: TICAGRELOR 90 MG TABLET PO ONE (10:54)
[2023-01-17] MEDS ORDERED: ATROPINE SULF 1 MG/10 ML SYR IV ONE (10:54)
[2023-01-17] MEDS ORDERED: DIPHENHYDRAMINE 50 MG/ML VIAL ONE (11:41)
[2023-01-17] MEDS ORDERED: HEPARIN 5000 UNIT/ML 1 ML VIAL ONE (11:44)
--- NOTE | 2023-01-17 13:50 | OP ---
Date of Procedure: 01/17/2023 Surgeon: SCOTTY REYES Procedure Performed: Selective coronary angiogram with bypass graft study. Indication: Unstable angina with abnormal stress test. Access: Right femoral artery 6-Malawian closed with 6-Malawian Angio-Seal. Complications: None. Bleeding: Less than 20 mL. Description Of Procedure: After risks, benefits, alternatives were explained, patient agreed to proc edure and signed informed consent. Patient was brought into cardiac catheterization laboratory, prep ped and draped in the usual sterile fashion. Then I accessed right femoral artery using micropunctur e kit, ultrasound guidance, fluoroscopy, and placed a 6-Malawian [place] sheath and took 6-Malawian JL4 catheter over J-wire into the aortic root, engaged left main, took standard views and exchanged for a 6-Malawian JR4 catheter, engaged the RCA, SVG to RCA, SVG to diagonal, and JOHNSON to LAD, took standard views and then removed the catheter and the sheath. 6-Malawian Angio-Seal was used for closure with go od hemostasis. Findings: 1.Left main; large and normal. 2.LAD; proximal 80%, mid 80% to 90% and then mid to distal right before the JOHNSON graft, there is 80% stenosis. 3.Left circumflex; very small with proximal 80% stenosis. 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 Graft Study: 1.Patent SVG to PDA and the PDA holds the stent, that is widely patent. 2.Patent SVG to diagonal. 3.Patent JOHNSON to LAD, which seems to be functional as a jump graft to diagonal and then to the LAD. Conclusion: Severe [place] coronary artery disease, multivessel with patent grafts as outlined above. Plan: Medical management. SR/MODL Voice ID: [id number] Report ID: [id number]
--- NOTE | 2023-01-17 15:25 | P.DS ---
Admission Date: 01/15/23 Discharge Date: 01/17/23 Primary Care Provider: Dr. Morocho Disposition: ROUTINE DISCHARGE Discharge Condition: GOOD Reason for Admission: Chest pain - Problems (1) NSTEMI (non-ST elevated myocardial infarction) Current Visit: Yes Status: Acute (2) HTN (hypertension) Current Visit: Yes Status: Acute Qualifiers: Hypertension type: primary hypertension Qualified Code(s): I10 - Essential (primary) hypertension (3) CAD (coronary artery disease) Current Visit: Yes Status: Acute Brief History of Present Illness: 67 yo patient who lives alone. He had a quadruple bypass in 2018. He states he had a LA July 29, 2022 and received one stent. Mr. Hardy has had stuttering chest pain increasing in frequency over the past 3-4 months. He states he feels like he is dying. He was frightened enough last week that he called his Sister to come sit with him. He states he gets SOB and then is not able to sleep for fear he is not going to wake. Mr. Hardy was here at [facility] last month with atypical chest pain, relatively normal ECHO, negative cardiac enzymes, but NM stress test showed "small to moderate partially reversible perfusion defect involving the inferior apical left ventricular myocardium. May indicate infarct with [place]elaide infarct ischemia." - Physical Exam General: Alert, Oriented x3, Other (anxious) HEENT: Normocephalic Neck: 2+ carotid pulse no bruit, JVD not distended Respiratory: Clear to auscultation bilaterally, Normal air movement Cardiovascular: No edema, Normal pulses, Normal S1 S2 Capillary refill: <2 Seconds Gastrointestinal: Normal bowel sounds Musculoskeletal: No clubbing, No swelling Integumentary: No rashes Neurological: Normal speech, Normal strength at 5/5 x4 extr Hospital Course: Assessment plan Atypical chest pain chest pain rule out LA CAD history of CABG Hyperlipidemia NSTEMI Heparin drip HX CAD quadruple bypass in 2018. He states he had a LA July 29, 2022 and received one stent. Mr. Hardy has had stuttering chest pain increasing in frequency over the past 3-4 months. He states he feels like he is dying. [facility] last month with atypical chest pain, relatively normal ECHO, negative cardiac enzymes, but NM stress test showed "small to moderate partially reversible perfusion defect involving the inferior apical left ventricular myocardium. May indicate infarct with adelaide infarct ischemia." Plan for PCI Dr Perez 01/17 Findings: 1. Left main; large and normal. 2. LAD; proximal 80%, mid 80% to 90% and then mid to distal right before the JOHNSON graft, there is 80% stenosis. 3. Left circumflex; very small with proximal 80% stenosis. 4. 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 Graft Study: 1. Patent SVG to PDA and the PDA holds the stent, that is widely patent. 2. Patent SVG to diagonal. 3. Patent JOHNSON to LAD, which seems to be functional as a jump graft to diagonal and then to the LAD. Conclusion: Severe enterprise coronary artery disease, multivessel with patent grafts as outlined above -Follow up with PCP in 1 to 2 weeks -Follow up with cardiology 7-10 days -Please call nursing station [phone] if you have any questions regarding your medications, or hospital stay -Please return to the emergency department if your symptoms worsen Vital Signs/Physical Exam: Temp Pulse Resp BP Pulse Ox 98.0 F 44 L 16 135/60 97 01/17/23 15:23 01/17/23 15:23 01/17/23 15:23 01/17/23 15:23 01/17/23 15:23 Laboratory Data at Discharge: WBC 7.20 thou/uL (4.3-10.9) 01/16/23 03:21 Hgb 14.0 g/dL (13.6-17.9) 01/16/23 03:21 Hct 40.8 % (39.6-49.0) 01/16/23 03:21 Plt Count 183 thou/uL (152-406) 01/16/23 03:21 PT Cancelled 01/16/23 05:00 INR Cancelled 01/16/23 05:00 APTT 77.5 SECONDS (24.3-36.9) H 01/16/23 20:46 Sodium 138 mEq/L (136-145) 01/17/23 03:46 Potassium 3.8 mEq/L (3.5-5.1) 01/17/23 03:46 BUN 17 mg/dL (7-18) 01/17/23 03:46 Creatinine 1.02 mg/dL (0.70-1.30) 01/17/23 03:46 Glucose 115 mg/dL (74-106) H 01/17/23 03:46 Magnesium Cancelled 01/16/23 05:00 Total Bilirubin Cancelled 01/16/23 05:00 AST Cancelled 01/16/23 05:00 ALT Cancelled 01/16/23 05:00 Alkaline Phosphatase Cancelled 01/16/23 05:00 Triglycerides Cancelled 01/16/23 05:00 Cholesterol Cancelled 01/16/23 05:00 HDL Cholesterol Cancelled 01/16/23 05:00 Cholesterol/HDL Ratio Cancelled 01/16/23 05:00 Home Medications: Aspirin [Ecotrin 81 MG] 81 mg PO DAILY #30 tab 12/22/22 Clopidogrel Bisulfate [Plavix*] 75 mg PO DAILY #30 tab 12/22/22 Losartan Potassium 50 mg PO DAILY #30 tab 12/22/22 ALPRAZolam [Xanax] 0.5 mg PO BID PRN #30 tab 01/17/23 Metoprolol Tartrate [Lopressor] 25 mg PO BID #60 tab 01/17/23 Rosuvastatin [Crestor] 5 mg PO BEDTIME #30 tab 01/17/23 New Medications: Rosuvastatin [Crestor] 5 mg PO BEDTIME #30 tab Metoprolol Tartrate [Lopressor] 25 mg PO BID #60 tab ALPRAZolam [Xanax] 0.5 mg PO BID PRN #30 tab PRN Reason: Anxiety Physician Discharge Instructions: PROBLEM: Chest Pain, Status post heart cath GOAL: Clear understanding of disease process INSTRUCTIONS: -DC IV and DC home -Follow-up with PCP in 1 to 2 weeks -Follow-up with Cardiology in 1 to 2 weeks -Please call Dr. Zapata at [phone] if any questions regarding hospital stay -Please call nursing station at [phone] if any nursing or medication questions -Return to the emergency room if symptoms worsen Diet: AHA Activity: Fall precautions DME DME: Date Ordered: Name of Company: [employer] Services Needed: Name of Company: Date or Referral: IMMUNIZATION Influenza Vaccine Indicated: No Influenza Vaccine Given: No Date Given: Pneumonia Vaccine Indicated: No Pneumonia Vaccine Given: No Date Given: Diet: AHA Activity: Fall precautions Followup: Tyler Morocho MD [Primary Care Provider] -
[2023-01-17 15:54] VITALS: BP 140/85; TEMP 97.8
[2023-01-17 16:09] VITALS: O2SAT 99
--- NOTE | 2023-01-17 17:25 | EKG ---
Test Date: 2023-01-16 Test Time: 09:27:49 Boiler Or Engine Operator: SHERIF MEASUREMENT RESULTS: Intervals: Rate: 42 [place]: 208 QRSD: 76 QT: 456 QTc: 380 [place]: P: 20 [place]: 208 QRS: 70 T: 76 INTERPRETIVE STATEMENTS: Marked sinus bradycardia Abnormal ECG Compared to ECG 01/15/2023 18:44:39 ST (T wave) deviation now present Electronically Signed On 01-17-23 17:21:14 TEST WORKER by Nishant Perez
--- NOTE | 2023-01-17 17:28 | EKG ---
Test Date: 2023-01-15 Test Time: 18:44:39 Supervisor [employer]: MB MEASUREMENT RESULTS: Intervals: Rate: 74 [place]: 168 QRSD: 84 QT: 398 QTc: 441 [place]: P: 75 [place]: 168 QRS: 74 T: 73 INTERPRETIVE STATEMENTS: Normal sinus rhythm Possible Left atrial enlargement Possible Inferior infarct, age undetermined Abnormal ECG Compared to ECG 12/21/2022 20:17:54 No significant changes Electronically Signed On 01-17-23 17:22:49 [email or web address] DEVELOPER by Nishant Perez
== END 2023-01-17 17:10 | disposition home or self-care (01) | DRG 282 ==
LOC: ER 18:35 → ERHOLD 19:55 → 4TH 21:06
PROVIDERS: ADMIT Hospitalist; ATTEND Hospitalist
PROC: 4A023N7 Measurement of Cardiac Sampling and Pressure, Left Heart, Percutaneous Approach (ICD-10-PCS; principal; 2023-01-17)
PROC: B2111ZZ Fluoroscopy of Multiple Coronary Arteries using Low Osmolar Contrast (ICD-10-PCS; 2023-01-17)
PROC: B2121ZZ Fluoroscopy of Single Coronary Artery Bypass Graft using Low Osmolar Contrast (ICD-10-PCS; 2023-01-17)
DX: I21.4 Non-ST elevation (NSTEMI) myocardial infarction (principal); I10 Essential (primary) hypertension; E78.5 Hyperlipidemia, unspecified; I25.119 Atherosclerotic heart disease of native coronary artery with unspecified angina pectoris; I25.2 Old myocardial infarction; Z60.2 Problems related to living alone; Z95.1 Presence of aortocoronary bypass graft; Z88.0 Allergy status to penicillin; Z95.5 Presence of coronary angioplasty implant and graft; Z79.82 Long term (current) use of aspirin; Z79.02 Long term (current) use of antithrombotics/antiplatelets; Z79.899 Other long term (current) drug therapy; Z87.891 Personal history of nicotine dependence; Z91.041 Radiographic dye allergy status
CPT/HCPCS: 36415; 71045; 71046; 76937; 80048; 80053; 80061; 82550; 82947; 83735; 83880; 84484; 85025; 85610; 85730; 93005; 93455; 94760; 96374; 96375; 99285; C1760; C1893; G0269; J0461; J1200; J1644; J2250; J2405; J3010; J7030; Q9967

== ENCOUNTER 2023-02-06 19:31 | Emergency (ER) | payer OTHER ==
--- OUTSIDE RECORDS SUMMARY | 2023-02-06 19:41 | XMS REPORT | Continuity of Care Document ---
:1955 Author Organization [facility] t Address [address] [facility] [address] [place] [address] Care Team Providers Name Role Phone Sharpless Primary Care Physician Jamal Red Attending Clinician Unavailable PABLO ALLEN Attending Clinician Unavailable VERITO BAILEY Attending Clinician Unavailable Pablo Allen DO Attending Clinician LAB90 Attending Clinician Unavailable KEYONA SUAZO Attending Clinician Unavailable KEYONA SUAZO Attending Clinician Unavailable Doctor Unassigned, [place] Attending Clinician Unavailable JD HINES Attending Clinician Unavailable Sami RUSSO Mahesheva Don Attending Clinician LUCITA CARBAJAL Attending Clinician Unavailable Tin KNUTSON, Jd Attending Clinician Denny Del Real Primary Attending Clinician Unavailable Amrik ERICKSON, Arsen Attending Clinician ARSEN DIXON Attending Clinician Unavailable Sofia Gatica Attending Clinician [phone] Salome KNUTSON, Edin Ovalles Attending Clinician [...] Expiration Date Eva FERREIRA MA DUAL 7 [id number] 2022 COMPLETE CAP(HMO 00:00:00 D-SNP OA) [employer] MEDICARE 7 [id number] 2021 [id number] GOLD 00:00:00 PLUS 2021 HUMANA 3 [id number] 2021 00:00:00 MEDICAID OF [place] [id number] 2021 00:00:00 [place] [facility] [id number] 2019 CARE 00:00:00 Problems Condition Condition Condition [...] TIS ITIS 6-13 09:57:00 l Active 00:00: [place] 08/15/2018 00 [facility] ABDOMINAL ABDOMINAL Diagnosis Active 2018-08-16 Memoria PAIN PAIN 6-13 02:35:00 l Active 00:00: [place] 08/15/2018 00 [facility] BLAYNE-SEROMA BLAYNE-SEROMA Diagnosis Active 2018-06-21 Memoria Active 4-16 10:59:00 l 06/18/2018 00:00: Ar[place] 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 [address] CHEST PAIN CHEST Diagnosis Active 2018-06-03 Memoria PAIN 3-31 15:02:00 l Active 00:00: [place] 06/02/2018 00 [facility] STERNAL STERNAL Diagnosis Active 2018-05-19 Memoria OSTEOMYELI OSTEOMYELI 3-07 06:57:00 l TIS TIS 00:00: [place] Active 00 05/09/2018 [facility] M86.61 - M86.61 - Diagnosis Active 2019-0 2018-04-08 Memoria OTHER OTHER 2-01 13:48:00 l CHRONIC CHRONIC 00:01: [place] OSTEOMYELI OSTEOMYELI 00 TIS, S TIS, S Active 04/05/2018 [facility] SHORTNESS SHORTNESS Diagnosis Active 2017-032018-02-28 Memoria OF BREATH OF BREATH 2 03:46:00 l Active 00:00: [place] 02/27/2018 00 [facility] ACUTE ACUTE Diagnosis Active 2017-032018-03-07 Mem oria EXACERBATI EXACERBATI 04-30 22:14:00 l ON OF ON OF 00:00: [place] CONGESTIVE CONGESTIVE 00 HEART F HEART F Active 02/27/2018 [facility] DIFFICULTY DIFFICULT Diagnosis Active 2017-032018-02-27 Memoria BREATHING Y 04-30 23:09:00 l BREATHING 00:00: [place] Active 00 02/27/2018 [facility] SOB, SOB, Diagnosis Active 2017-032018-02-28 Mem oria TACHYCARDI TACHYCARDI 04-16 22:16:00 l A A Active 00:00: [place] 02/13/2018 00 [facility] Dyspnea Dyspnea Disease Active 2017-03 Univers 1-12 ity of 00:00: [place] [address] Medical Branch Other Other Disease Active 2017-03 Univers chest pain chest pain 1-08 it y of 00:00: [place] [address] Medical Branch Cellulitis Cellulitis Disease Active 2017-03 U nivers of chest of chest 1-07 ity of wall wall 00:00: [place] [address] Medical Branch Elevated Elevated Disease Active 2017-03 Unive rs total total 0-10 ity of protein protein 00:00: [place] [address] Medical Branch GELY GELY Disease Active Univers (obstructi (obstructi 9-17 it y of ve sleep ve sleep 00:00: [place] apnea) apnea) 00 Medical Branch Acute on Acute on Disease Active Unive rs chronic chronic 9-17 [place] of diastolic diastolic [place] congest[place] congestive 00 Me dical heart heart Branch failure failure Weakness Weakness Disease Active Unive rs 9-16 ity of 00:00: [place] [address] Medical Branch SOB SOB Disease Active Univers [...] disease of disease of 00:00: automatic [place] red devil red devil 00 ally from Medical artery of artery of request [facility] red devil red devil for heart with heart with surgery stable stable [id number] angina angina pectoris pectoris Coronary Coronary Disease Active Overview: Un jody artery artery 8-30 Formattin ity of disease of disease of 00:00: g of this [place] red devil red devil 00 note Medical artery of artery of might be Br anch red devil red devil different heart with heart with from the stable stable original. angina angina Added pectoris pectoris automatic ally from request for surgery [id number] Coronary Coronary Disease Active Overview: Un jody artery artery 8-24 Added ity of disease disease 00:00: automatic [place] involving involving 00 ally from M edical red devil red devil request Branch coronary coronary for artery of artery of surgery red devil red devil [id number] heart with heart with other form other form of angina of angina pectoris pectoris Coronary Coronary Disease Active Overview: Un jody artery artery 8-24 Formattin ity of disease disease 00:00: g of this [place] involving involving 00 note Medi tenzin red devil red devil might be Branch coronary coronary different artery of artery of from the red devil red devil original. heart with heart with Added other form other form automatic of angina of angina ally from pectoris pectoris request for surgery [id number] Umbilical Umbilical Disease Active Overview: Univers hernia hernia 6-05 Formattin ity of without without 00:00: g of this [place] obstructio obstructio 00 note Me dical n and n and might be Branch without without different gangrene gangrene from the original. Added automatic ally from request for surgery [id number] Prediabete Prediabete Disease Active U nivers s s 4-16 ity of 00:00: [place] 00 Medical Branch Obesity Obesity Disease Active Univers (BMI (BMI 4-16 ity of 30.0-34.9) 30.0-34.9) [place]:00: [place] Dizziness Dizziness Disease Active Uni vers 4-10 ity of 00:00: [place] 00 Medical Branch Chest Chest Disease Active Univers tightness tightness 4-10 ity of 00:00: [place] 00 Medical Branch History of History [...] use 4-10 ity of disorder disorder 00:00: [place] 00 Medical Branch Sleep Sleep Disease Active Univers disorder disorder 4-10 ity of breathing breathing [place] 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 (dyspnea (dyspnea 4-10 ity of on on 00:00: [place] exertion) exertion) 00 [facility] CVA CVA Disease Active [facility] [...] of lung field lung field 9 [facility] Infection Infection Problem 2018-10-24 Memoria following following 11:25:49 l a a [place] procedure, procedure, other other surgical surgical site, site, initial initial encounter encounter 10/24/2018 [facility] Localized Localized Problem 2018-10-24 Memoria enlarged enlarged 11:25:49 l lymph lymph [place] nodes nodes 10/24/2018 [facility] Other Other Problem 2018-10-24 Memor ia specified specified 11:25:49 l postproced postproced He rmladi ural ural states states 10/24/2018 [facility] Presence Presence Problem 2018-10-24 Memoria of of 11:25:49 l aortocoron aortocoron He rmann juana bypass juana bypass graft graft 10/24/2018 [facility] Unspecifie Unspecifi Problem 2018-09-18 Memoria d severe ed severe 14:04:56 l protein-ca protein-ca He rmann fely fely malnutriti malnutriti on on 09/18/2018 [facility] Acute Acute Problem 2018-09-10 Memor ia posthemorr posthemorr 14:31:25 l hagic hagic [place] anemia anemia 09/10/2018 [facility] Osteomyeli Osteomyel Problem 2018-09-18 Memoria tis, itis, 14:04:56 l unspecifie unspecifie He rmann d d 09/18/2018 [facility] 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-18 Memoria rotic erotic 14:04:56 l heart heart [place] disease of disease of red devil red devil coronary coronary artery artery without without angina angina pectoris pectoris 09/18/2018 [facility] Essential Essential Problem 2018-09-10 Memoria (primary) (primary) 14:31:25 l hypertensi hypertensi He rmann on on 09/10/2018 [facility] Hyperlipid Hyperlipi Problem 2018-09-18 Memoria emia demia, 14:04:56 l unspecifie unspecifie He rmann d d 09/18/2018 [facility] Personal Personal Problem 2018-09-18 Memoria history of history of 14:04:56 l nicotine nicotine Arsenio n dependence dependence 9 [facility] Major Major Problem 2018-09-10 Memor ia depressive depressive 14:31:25 l disorder, disorder, Herm ladi single single episode, episode, unspecifie unspecifie d d 09/10/2018 [facility] Anxiety Anxiety Problem 2018-09-10 M emoria disorder, disorder, 14:31:25 l unspecifie unspecifie He rmann d d 09/10/2018 [facility] Insomnia, Insomnia, Problem 2018-09-10 Memoria unspecifie unspecifie 14:31:25 l d d [place] 09/10/2018 [facility] Ischemic Ischemic Problem 2018-09-18 Memoria cardiomyop cardiomyop 14:04:56 l athy athy [place] 09/18/2018 [facility] Constipati Constipat Problem 2018-09-10 Memoria on, ion, 14:31:25 l unspecifie unspecifie He rmann d d 09/10/2018 [facility] Radiograph Radiograp Problem 2018-09-18 Memoria ic dye hic dye 14:04:56 l allergy allergy [place] status status 09/18/2018 [facility] Fluid Fluid Problem 2018-09-17 Kuldeep teto overload, overload, 12:21:37 l unspecifie unspecifie He rmann d d 09/17/2018 [facility] Erythemato Erythemat Problem 2018-09-17 Memoria us ous 12:21:37 l condition, condition, He rmann unspecifie unspecifie d d 09/17/2018 [facility] Allergy Allergy Problem 2018-09-17 Me moria status to status to 12:21:37 l penicillin penicillin He rmann 09/17/2018 [facility] Other long Other Problem 2018-09-17 M emoria term group home 12:21:37 l (current) (current) Herm ladi drug drug therapy therapy 09/17/2018 [facility] Family Family Problem 2018-09-17 Kuldeep teto history of history of 12:21:37 l ischemic ischemic Arsenio freedman heart heart disease disease and other and other diseases diseases of the of the shift leader shift 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 y 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 y system 09/17/2018 [facility] Shortness Shortness Problem 2018-09-18 Memoria of breath of breath 14:04:56 l 09/18/2018 Arsenio freedman [facility] Atelectasi Atelectas Problem 2018-09-18 Memoria s is 14:04:56 l 09/18/2018 Arsenio freedman [facility] Cellulitis Celluliti Problem 2018-09-18 Memoria of chest s of chest 14:04:56 l wall wall [place] 09/18/2018 [facility] Acute on Acute on Problem 2018-09-18 Memoria chronic chronic 14:04:56 l combined combined Arsenio n systolic systolic (congestiv (congestiv e) and e) and diastolic diastolic (congestiv (congestiv e) heart e) heart failure failure 09/18/2018 [facility] Frequency Frequency Problem 2018-09-18 Memoria of of 14:04:56 l micturitio micturitio He rmann n n 09/18/2018 [facility] Localized Localized Problem 2018-09-18 Memoria edema edema 14:04:56 l 09/18/2018 Arsenio freedman [facility] Body mass Body mass Problem 2018-09-18 Memoria index index 14:04:56 l (BMI) (BMI) [place] 27.0-27.9, 27.0-27.9, adult adult 09/18/2018 [facility] Coronary Coronary Problem Active 2018-10-24 Memoria arterioscl arterioscl 11:25:49 l erosis erosis [place] (disorder) (disorder) Active Problem 10/24/2018 [facility], [facility] ILLNESS, ILLNESS, Diagnosis Active 2018-05-19 Memoria UNSPECIFIE UNSPECIFIE 06:57:00 l D D Active [place] [facility] POSTPROC POSTPROC Diagnosis Active 2018-06-03 Memoria SEROMA OF SEROMA OF 15:02:00 l SKIN, SKIN, [place] SUBCU SUBCU FOLLOWING FOLLOWING Active [facility] ACUTE ACUTE Diagnosis Active 2018-08-17 Mem oria CHOLECYSTI CHOLECYSTI 09:57:00 l TIS TIS Active Arsenio freedman [facility] HEART HEART Diagnosis Active 2018-03-07 Mem oria FAILURE, FAILURE, 22:14:00 l UNSPECIFIE UNSPECIFIE He rmladi D D Active [facility] History of Past Illness Condition Condition Condition Status Onset Resolution Last Treating Co mments Source Name Details Category Date Date Treatment Clinician Date Other Other Problem 2018-2018-10-24 2018-10-24 M emoria acute acute 2-06 11:25:49 11:25:49 l osteomyeli osteomyeli 06:03: He antonio tis, other tis, other 01 site site 04/10/2018 10/24/2018 [facility] Hypertensi Hypertens Problem 2018-2018-09-18 2018-09-18 Memoria ve heart shelia heart 06-26 14:04:56 14:04:56 l disease disease 05:04: [place] with heart with heart 24 failure failure 06/26/2018 09/18/2018 [facility] Allergies, Adverse Reactions, Alerts Allergy Allergy Status Severity Reaction(s) Onset Inactive Treating Comm ents Source Name Type Date Date Clinician Penicill DA Active [facility] ins 06-24 Clear 00:00: [place] 00 [facility] iodine DA Active [facility] 06-24 Clear 00:00: [place] 00 [facility] Iodine Propensi Active Itching Kaela ty [...] penicill Active Memori a ins ins l [place] penicill penicill Active Memori a in<sup>1 in<sup>1 l </sup> </sup> [place] iodine<s iodine<s Active Memori a up>2</montoya up>2</montoya l p> p> [place] NKFA NKFA Active Memoria l [place] Family History Family Member Diagnosis Comments Start Date Stop Date Source Natural father Stroke [facility] Natural father Diabetes [facility] Natural father Hypertension [facility] Natural father Stroke [facility] Natural mother Diabetes [facility] Natural mother Hypertension [facility] Social History Social Habit Start Date Stop Date Quantity Comments Source History SDOH Kaela tavera Alcohol Frequency History SDOH Kaela Avila ld Alcohol Std Drinks History SDOH Kaela Avila ld Alcohol Binge Sexual orientation [facility] History of tobacco Cigarette Smoker [facility] Exposure to Not sure University of SARS-CoV-2 (event) [facility] Tobacco use and 2021-05-03 2021-05-03 Smokeless Kaela shirleyjessica exposure 00:00:00 00:00:00 tobacco non-user Alcohol Comment 2021-05-03 2021-05-03 rarely Kaela schaffer 00:00:00 00:00:00 Education 2021-05-03 2021-05-03 15 Kaela Johnson 00:00:00 00:00:00 Cigarette 2021-05-03 2021-05-03 Kaela Johnson pack-years 00:00:00 00:00:00 Social History 2018-08-16 2018-08-16 Sonu Cintia mike 07:52:22 07:52:22 Alcohol intake 2015-08-28 2015-08-28 [facility] 00:00:00 00:00:00 non-drinker of Medical Ce nter alcohol (finding) Cigarettes smoked 2015-08-27 2015-08-27 [facility] current (pack per 00:00:00 00:00:00 [facility] Center day) - Reported Sex Ass[birth year] At [birth year] [facility] 00:00:00 00:00:00 [facility] Smoking Status Start Date Stop Date Source Ex-smoker 2021-05-03 00:00:00 2021-05-03 00:00:00 Kaela echols Smokes tobacco daily 2015-08-27 00:00:00 [facility] Medications Ordered Filled Start Stop Current Ordering Indication Dosage Frequency Signature Comments Components Source Medication Medication Date Date Medication? Clinician (SIG) Name Name Ghanshyampril 2021- No 10mg Take 10 mg Kaela 10 MG oral 3-30 03-30 by mouth Seyb old Tablet 10:39: 00:00 daily 21 :00 Tramadol Yes [id number] 50mg QD Take 1 Ke lsey HCl 50 MG 3-30 tablet (50 Seyb old oral Tablet 00:00: mg total) 00 by mouth daily as needed for pain Lisinopril Yes 10mg Take 10 mg K elsey 10 MG oral 3-01 by mouth Seybo ld Tablet 14:00: daily 07 Escitalopra Yes [id number] 10mg Take 1 Kaela m Oxalate 3-01 tablet (10 Seyb old (Lexapro) 00:00: mg total) 10 MG oral 00 by mouth Tablet daily Aspirin 81 0 Yes [id number] 81mg Take 1 Kaela MG oral 3-01 tablet (81 Seybol d Chewable 00:00: mg total) Tablet 00 by mouth daily Tramadol Yes [id number] 50mg Q24H Take 1 Ke lsey HCl 50 MG 3-01 tablet (50 Seyb old oral Tablet 00:00: mg total) 00 by mouth daily as needed for pain Escitalopra Yes [id number] 10mg Take 1 Kaela m Oxalate 3-01 tablet (10 Seyb old (Lexapro) 00:00: mg total) 10 MG oral 00 by mouth Tablet daily Aspirin 81 2021-0 Yes [id number] 81mg Take 1 Kaela MG oral 3-01 tablet (81 Seybol d Chewable 00:00: mg total) Tablet 00 by mouth daily Tramadol 2021- No [id number] 50mg QD Take 1 K elsey HCl 50 MG 3-01 03-30 tablet (50 Sey bold oral Tablet 00:00: 00:00 mg total) 00 :00 by mouth daily as needed for pain lisinopriL 2019-03 Yes 10mg Take 10 mg U nivers 10 mg 1-09 by mouth ity of tablet 19:16: daily. [address] lisinopriL 2019-03 Yes 10mg Take 10 mg U nivers 10 mg 1-09 by mouth ity of tablet 19:16: daily. [place] 47 [facility] Branch lisinopriL 2019-03 Yes 10mg Take 10 mg U nivers 10 mg 1-09 by mouth ity of tablet 19:16: daily. [place] [address] Medical Branch lisinopriL 2019-03 Yes 10mg Take 10 mg U nivers 10 mg 1-09 by mouth ity of tablet 19:16: daily. [place] [address] Medical Branch lisinopriL 2019-03 Yes 10mg Take 10 mg U nivers 10 mg 1-09 by mouth ity of tablet 19:16: daily. [place] [address] Medical Branch lisinopriL 2019-03 Yes 10mg Take 10 mg U nivers 10 mg 1-09 by mouth ity of tablet 13:16: daily. [place] [address] Medical Branch atorvastati 2019-03 Yes [id number] 40mg Take 1 Univers n 40 mg 1-09 tablet by ity of tablet 00:00: mouth [place] 00 daily. Medical Branch aspirin 81 2019-03 Yes [id number] 81mg Take 1 Univers mg EC 1-09 tablet by ity of tablet 00:00: mouth [place] 00 daily. Medical Branch atorvastati 2019-03 Yes [id number] 40mg Take 1 Univers n 40 mg 1-09 tablet by ity of tablet 00:00: mouth [place] 00 daily. Medical Branch aspirin 81 2019-03 Yes [id number] 81mg Take 1 Univers mg EC 1-09 tablet by ity of tablet 00:00: mouth [place] 00 daily. Medical Branch atorvastati 2019-03 Yes [id number] 40mg Take 1 Univers n 40 mg 1-09 tablet by ity of tablet 00:00: mouth [place] 00 daily. Medical Branch aspirin 81 2019-03 Yes [id number] 81mg Take 1 Univers mg EC 1-09 tablet by ity of tablet 00:00: mouth [place] 00 daily. Medical Branch atorvastati 2019-03 Yes [id number] 40mg Take 1 Univers n 40 mg 1-09 tablet by ity of tablet 00:00: mouth [place] 00 daily. Medical Branch aspirin 81 2019-03 Yes [id number] 81mg Take 1 Univers mg EC 1-09 tablet by ity of tablet 00:00: mouth [place] 00 daily. Medical Branch atorvastati 2019-03 Yes [id number] 40mg Take 1 Univers n 40 mg 1-09 tablet by ity of tablet 00:00: mouth [place] 00 daily. Medical Branch aspirin 81 2019-03 Yes [id number] 81mg Take 1 Univers mg EC 1-09 tablet by ity of tablet 00:00: mouth [place] 00 daily. Medical Branch atorvastati 2019- Yes [id number] 40mg Take 1 Univers n 40 mg 1-09 tablet by ity of tablet 00:00: mouth [place] 00 daily. Medical Branch aspirin 81 2019-1 Yes [id number] 81mg Take 1 Univers mg EC 1-09 tablet by ity of tablet 00:00: mouth [place] 00 daily. Medical Branch metoprolol 2019-0 Yes [id number] 25mg Take 1 U nivers succinate 9-10 tablet by ity o f XL 25 mg 24 00:00: mouth [place] hr tablet 00 daily. Medical Branch traZODone 2019-0 Yes [id number] 50mg Take 1 Un jody 50 mg 9-10 tablet by ity of tablet 00:00: mouth at [place] 00 bedtime. Medical Branch cyclobenzap 2019-0 Yes [id number] 10mg Take 1 Univers rine 10 mg 9-10 tablet by ity of tablet 00:00: mouth 3 (three) Medical times Branch daily as needed for Muscle Spasms. naproxen 2019-0 Yes [id number] 500mg Take 1 U nivers 500 mg 9-10 tablet by ity of tablet 00:00: mouth 2 00 (two) Medical times Branch daily with meals. buPROPion 2019-0 Yes [id number] 150mg Take 1 U nivers SR 9-10 tablet by ity of (WELLBUTRIN 00:00: mouth 2 Oni as SR) 150 mg 00 (two) Medical SR tablet times Branch daily. metoprolol 2019-0 Yes [id number] 25mg Take 1 U nivers succinate 9-10 tablet by ity o f XL 25 mg 24 00:00: mouth [place] hr tablet 00 daily. Medical Branch traZODone 2019-0 Yes [id number] 50mg Take 1 Un jody 50 mg 9-10 tablet by ity of tablet 00:00: mouth at [place] 00 bedtime. Medical Branch cyclobenzap 2019-0 Yes [id number] 10mg Take 1 Univers rine 10 mg 9-10 tablet by ity of tablet 00:00: mouth 3 [place] 00 (three) Medical times Branch daily as needed for Muscle Spasms. naproxen 2020-0 Yes [id number] 500mg Take 1 U nivers 500 mg 9-10 tablet by ity of tablet 00:00: mouth 2 00 (two) Medical times Branch daily with meals. buPROPion 2020-0 Yes [id number] 150mg Take 1 U nivers SR 9-10 tablet by ity of (WELLBUTRIN 00:00: mouth 2 Oni as SR) 150 mg 00 (two) Medical SR tablet times Branch daily. metoprolol 2020-0 Yes [id number] 25mg Take 1 U nivers succinate 9-10 tablet by ity o f XL 25 mg 24 00:00: mouth [place] hr tablet 00 daily. Medical Branch traZODone 2020-0 Yes [id number] 50mg Take 1 Un jody 50 mg 9-10 tablet by ity of tablet 00:00: mouth at [place] 00 bedtime. Medical Branch cyclobenzap 2020-0 Yes [id number] 10mg Take 1 Univers rine 10 mg 9-10 tablet by ity of tablet 00:00: mouth 3 00 (three) Medical times Branch daily as needed for Muscle Spasms. naproxen 2020-0 Yes [id number] 500mg Take 1 U nivers 500 mg 9-10 tablet by ity of tablet 00:00: mouth 2 00 (two) Medical times Branch daily with meals. buPROPion 2020-0 Yes [id number] 150mg Take 1 U nivers SR 9-10 tablet by ity of (WELLBUTRIN 00:00: mouth 2 Oni as SR) 150 mg 00 (two) Medical SR tablet times Branch daily. traZODone 2020-0 Yes [id number] 50mg Take 1 Un jody 50 mg 9-10 tablet by ity of tablet 00:00: mouth at [place] 00 bedtime. Medical Branch cyclobenzap 2020-0 Yes [id number] 10mg Take 1 Univers rine 10 mg 9-10 tablet by ity of tablet 00:00: mouth 3 [place] 00 (three) Medical times Branch daily as needed for Muscle Spasms. traZODone 2020-0 Yes [id number] 50mg Take 1 Un jody 50 mg 9-10 tablet by ity of tablet 00:00: mouth at [place] 00 bedtime. Medical Branch cyclobenzap 2020-0 Yes [id number] 10mg Take 1 Univers rine 10 mg 9-10 tablet by ity of tablet 00:00: mouth 3 [place] 00 (three) Medical times Branch daily as needed for Muscle Spasms. traZODone 2020-0 Yes [id number] 50mg Take 1 Un jody 50 mg 9-10 tablet by ity of tablet 00:00: mouth at [place] bedtime. Medical Branch cyclobenzap 2020-0 Yes [id number] 10mg Take 1 Univers rine 10 mg 9-10 tablet by ity of tablet 00:00: mouth 3 [place] (three) Medical times Branch daily as needed for Muscle Spasms. traZODone 2020-0 Yes [id number] 50mg Take 1 Un jody 50 mg 9-10 tablet by ity of tablet 00:00: mouth at [place] 00 bedtime. Medical Branch cyclobenzap 2020-0 Yes [id number] 10mg Take 1 Univers rine 10 mg 9-10 tablet by ity of tablet 00:00: mouth 3 [place] (three) Medical times Branch daily as needed for Muscle Spasms. traZODone 2020-0 Yes [id number] 50mg Take 1 Un jody 50 mg 9-10 tablet by ity of tablet 00:00: mouth at [place] [address] bedtime. Medical Branch cyclobenzap 2019-0 Yes [id number] 10mg Take 1 Univers rine 10 mg 9-10 tablet by ity of tablet 00:00: mouth 3 [place] (three) Medical times [place] daily as needed for Muscle Spasms. traZODone 2019-0 Yes [id number] 50mg Take 1 Un jody 50 mg 9-10 tablet by ity of tablet 00:00: mouth at [place] 00 bedtime. Medical Branch cyclobenzap 2019-0 Yes [id number] 10mg Take 1 Univers rine 10 mg 9-10 tablet by ity of tablet 00:00: mouth 3 [place] (three) Medical times Branch daily as needed for Muscle Spasms. metoprolol 2020-0 Yes [id number] 25mg Take 1 U nivers succinate 9-10 tablet by ity o f XL 25 mg 24 00:00: mouth [place] hr tablet 00 daily. Medical Branch traZODone 2020-0 Yes [id number] 50mg Take 1 Un jody 50 mg 9-10 tablet by ity of tablet 00:00: mouth at [place] 00 bedtime. Medical Branch cyclobenzap 2019-0 Yes [id number] 10mg Take 1 [facility] rine 10 mg 9-10 tablet by ity of tablet 00:00: mouth 3 [place] (three) Medical times Branch daily as needed for Muscle Spasms. naproxen 2019-0 Yes [id number] 500mg Take 1 U nivers 500 mg 9-10 tablet by ity of tablet 00:00: mouth 2 [place] 00 (two) Medical times Branch daily with meals. buPROPion 2019-0 Yes [id number] 150mg Take 1 U nivers SR 9-10 tablet by ity of (WELLBUTRIN 00:00: mouth 2 [place] SR) 150 mg 00 (two) Medical SR tablet times Branch daily. metoprolol 2019-0 Yes [id number] 25mg Take 1 U nivers succinate 9-10 tablet by ity o f XL 25 mg 24 00:00: mouth [place] hr tablet 00 daily. Medical Branch traZODone 2019-0 Yes [id number] 50mg Take 1 Un jody 50 mg 9-10 tablet by ity of tablet 00:00: mouth at [place] 00 bedtime. Medical Branch cyclobenzap 2019-0 Yes [id number] 10mg Take 1 [facility] rine 10 mg 9-10 tablet by ity of tablet 00:00: mouth 3 [place] 00 (three) Medical times Branch daily as needed for Muscle Spasms. naproxen 2019-0 Yes [id number] 500mg Take 1 [facility] nivers 500 mg 9-10 tablet by ity of tablet 00:00: mouth 2 [place] 00 (two) Medical times Branch daily with meals. buPROPion 2019-0 Yes [id number] 150mg Take 1 U nivers SR 9-10 tablet by ity of (WELLBUTRIN 00:00: mouth 2 [place] SR) 150 mg 00 (two) Medical SR tablet times Branch daily. metoprolol 2019-0 2020- No [id number] 25mg Take 1 [facility] succinate 9-10 11-09 tablet by ity of XL 25 mg 24 00:00: 00:00 mouth [place] hr tablet 00 :00 daily. Medical Branch naproxen 2019-0 2020- No [id number] 500mg Take 1 [facility] 500 mg 9-10 11-09 tablet by ity of tablet 00:00: 00:00 mouth 2 [place] 00 :00 (two) Medical times Branch daily with meals. buPROPion 2019-0 2020- No [id number] 150mg Take 1 [facility] SR 9-10 11-09 tablet by ity of (WELLBUTRIN 00:00: 00:00 mouth 2 [place] SR) 150 mg 00 :00 (two) Medical SR tablet times Branch daily. metoprolol 2019- No [id number] 25mg Take 1 [facility] succinate 9-10 11-09 tablet by ity of XL 25 mg 24 00:00: 00:[place] mouth [place] hr tablet 00 :00 daily. Medical Branch naproxen 2019- No [id number] 500mg Take 1 [facility] 500 mg 9-10 11-09 tablet by ity of tablet 00:00: 00:00 mouth 2 [place] 00 :00 (two) Medical times Branch daily with meals. buPROPion 2019- No [id number] 150mg Take 1 [facility] SR 9-10 11-09 tablet by ity of (WELLBUTRIN 00:00: 00:00 mouth 2 [place] SR) 150 mg 00 :00 (two) Medical SR tablet times Branch daily. metoprolol 2019- No [id number] 25mg Take 1 [facility] succinate 9-10 11-09 tablet by ity of XL 25 mg 24 00:00: 00:00 mouth [place] hr tablet 00 :00 daily. Medical Branch naproxen No [id number] 500mg Take 1 [facility] 500 mg 9-10 11-09 tablet by ity of tablet 00:00: 00:00 mouth 2 [place] 00 :00 (two) Medical times Branch daily with meals. buPROPion 2019- No [id number] 150mg Take 1 [facility] SR 9-10 11-09 tablet by ity of (WELLBUTRIN 00:00: 00:00 mouth 2 [place] SR) 150 mg 00 :00 (two) Medical SR tablet times Branch daily. TRAZODONE 2018-03 Yes [id number] TAKE THREE [facility] 50 mg 1-18 TABLETS BY ity of tablet 00:00: MOUTH AT [place] 00 BEDTIME Medical Branch TRAZODONE 2018-03 Yes [id number] TAKE THREE [facility] 50 mg 1-18 TABLETS BY ity of tablet 00:00: MOUTH AT [place] 00 BEDTIME Medical Branch TRAZODONE 2018-03 2020- No [id number] TAKE THREE [facility] 50 mg 1-18 09-10 TABLETS BY ity of tablet 00:00: 00:00 MOUTH AT [place] 00 :00 BEDTIME Medical Branch TRAZODONE 2018-03- No [id number] TAKE THREE [facility] 50 mg 1-18 09-10 TABLETS BY ity of tablet 00:00: 00:00 MOUTH AT [place] 00 :00 BEDTIME Medical Branch metoprolol Yes 25mg Take 1 Unive rs succinate 7-02 tablet by ity o f XL 25 mg 24 00:00: mouth [place] hr tablet 00 daily. Medical Branch metoprolol Yes 25mg Take 1 Unive rs succinate 7-02 tablet by ity o f XL 25 mg 24 00:00: mouth [place] hr tablet 00 daily. Medical Branch metoprolol 2019- No 25mg [...] No Notes: Memor ia 300 MG Oral 08-16 (Same as: l Capsule 13:00: Neurontin) Herm ladi Tylenol No Notes: Max Kuldeep teto 6-14 acetaminop l 11:00: hen 4000 [place] 00 mg/day (4 gm/day). (Same as: Tylenol Extra Strength) Lovenox No Notes: Memoria 6-14 (Same as: l 09:00: Lovenox) [place] 00 Isolyte S No Notes: Memori a PH 7.4 -14 (Same as: l 1,000 mL 08:15: Isolyte S Herm ladi 00 PH 7.4) tramadol No Notes: Not Mem oria hydrochlori 14 to exceed l de 50 MG 08:14: 400mg/day. Her fernandes Oral Tablet 00 (Same As: Ultram) Ondansetron No Notes: Kuldeep teto 6-14 (Same as: l 08:13: Zofran) [place] 00 MEDICATION WASTE Product Size: 4 mg Product Wasted: _0__ mg Glucagon No 1 mg, Memoria 614 Route: IM, l 08:13: Drug form: [place] 00 PDR/INJ, PRN, Dosing Weight 81.818, kg, PRN Blood Glucose Results, Start date: 08/16/18 3:13:00 CDT, Duration: 30 day, Stop date: 09/15/18 3:12:00 CDT Dextrose 2019-0 No 12.5 gm, Memor ia 50% Syringe 614 25 mL, l 08:13: Route: [place] 00 IVP, Drug Form: INJ, Dosing Weight 81.818, kg, PRN, PRN Blood Glucose Results, Start date: 08/16/18 3:13:00 CDT, Duration: 30 day, Stop date: 09/15/18 3:12:00 CDT Zofran 2019-0 No 4 mg, Memoria 614 Route: l 07:11: IVP, Drug form: INJ, ONCE, Dosing Weight 81.818, kg, Priority: STAT, Start date: 08/16/18 2:11:00 CDT, Stop date: 08/16/18 2:11:00 CDT Morphine 2019-0 No 4 mg, Memoria 6 Route: l 07:11: IVP, ONCE, Dosing Weight 81.818, kg, Priority: STAT, Start date: 08/16/18 2:11:00 CDT, Stop date: 08/16/18 2:11:00 CDT Doxycycline 2018- Yes Notes: Kuldeep teto 06-21 (Same as: l 18:35: Vibramycin ) Trazodone No Notes: Memori a Hydrochlori 06-04 (Same As: l de 50 MG 02:00: Desyrel) Marcia nn Oral Tablet atorvastati No Notes: Kuldeep teto n 06-04 (Same as: l 02:00: Lipitor) doxycycline 2018- Yes 100 mg = 1 Memoria hyclate 100 - tab, PO, l MG Oral 20:58: Q12H, X 14 Herm ladi Tablet 00 day, # 28 tab, 0 Refill(s), Pharmacy: [facility] [id number] meropenem No Notes: Memori a 4- Same as l 18:00: [place] MEDICATION WASTE Product Size: 500 mg Product Wasted: ___ mg tramadol No Notes: Not Mem oria hydrochlori - to exceed l de 50 MG 17:30: 400mg/day. Her fernandes Oral Tablet 00 (Same As: Ultram) Doxycycline No Notes: Kuldeep teto - (Same as: l 15:10: Vibramycin [place] ) tramadol No Notes: Not Mem oria hydrochlori - to exceed l de 50 MG 14:00: 400mg/day. Her fernandes Oral Tablet 00 (Same As: Ultram) Aspirin 81 No Notes: Do Me moria MG Enteric 06-03 not crush l Coated 14:00: or chew. [place] Tablet 00 (Same As: Ecotrin) Midodrine No Notes: Memori a - (Same l 14:00: as:Proamat [place] 00 ine) metoprolol No Notes: Memor ia extended 06-03 (Same as: l release 14:00: Toprol XL) Herm ladi Do Not Crush Lisinopril No Notes: Memor ia 4- (Same as: l 14:00: Prinivil, [place] 00 Zestril) duloxetine No Notes: Memor ia 4- (Same as: l 14:00: Cymbalta) [place] 00 (Do Not Crush) Docusate No Notes: [facility] Sodium 100 - (Same as: l MG Oral 14:00: Colace) [place] Capsule 00 (Do Not [Colace] Crush) clopidogrel No Notes: Kuldeep teto - (Same As: l 14:00: Plavix) [place] 00 heparin No Notes: Memoria 4- porcine l 14:00: heparin [place] 00 Buspirone No Notes: Memori a 4- (Same As: l 14:00: BuSpar) [place] 00 tramadol No Notes: Not Mem oria hydrochlori - to exceed l de 50 MG 04:45: 400mg/day. Her fernand[place] Oral Tablet 00 (Same As: Ultram) Hydralazine No Notes: Kuldeep teto 4- (Same as: l 02:32: Apresoline ) Push over 5 minutes Trazodone No Notes: Memori a 06-03 (Same As: l 02:19: Desyrel) Vancomycin No 2001 mg: Me moria 06-03 infuse l 00:00: over 2.5 hours For adult patients only: Round to nearest 250 mg per Medical Staff approval MEDICATION WASTE Product Size: 1000 mg Product Wasted: ___ mg cefepime No Notes: Memoria 06-03 (Same As: l 00:00: Maxipime) MEDICATION WASTE [...] l tablet 23:49: Daily [place] 00 Glucagon No 1 mg, Memoria 06-02 Route: [...] PO, l ER 25 mg 22:06: Daily [place] oral 00 tablet, extended release DULoxetine Yes 30 mg = 1 Me moria 30 mg oral 3-31 cap, PO, l delayed 22:06: Daily [place] release 00 capsule lisinopril Yes 2.5 mg = Mem oria 5 mg oral 19 0.5 tab, l tablet 15:58: PO, Daily, Marcia nn 00 # 30 tab, 0 Refill(s), Pharmacy: [address] No 2001 mg: Me moria 3-18 infuse l 23:00: over 2.5 00 hours For adult patients only: Round to nearest 250 mg per Medical Staff approval MEDICATION WASTE Product Size: 1000 mg Product Wasted: ___ mg Fleet Enema No 133 mL, Mem oria 17 Route: TN, l 22:12: Drug Form: CARLOZ, Dosing Weight [...] ONCE, Stop date: 05/17/18 10:48:00 CDT propofol No Route: IV, Mem oria (ANES) 3-15 Drug form: l 15:48: INJ, ONCE, Stop date: 05/17/18 10:48:00 CDT succinylcho No Route: IV, Memoria line (ANES) 3-15 Drug form: l 15:43: INJ, ONCE, Stop date: 05/17/18 10:43:00 CDT midazolam No Route: IV, Me moria (ANES) 3-15 [...] 14:00: Prinivil, [place] 00 Zestril) Vancomycin No 2001 mg: Me moria 3-15 infuse l 06:00: over 2.5 [place] 00 hours For adult patients only: Round to nearest 250 mg per Medical Staff approval MEDICATION WASTE Product Size: 1000 mg Product Wasted: ___ mg alteplase 2 No Notes: Kuldeep teto mg 3-14 "Syringe l injection 22:49: for [place] catheter clearance or interventi onal radiology use. [...] (Same as: l MG Oral 15:11: Colace) Capsule (Do Not [Colace] Crush) Chlorpromaz No Notes: [...] 05:00: ve free. (Same as: Xylocaine MPF) Sodium No 250 mL, Memoria Chloride 3-12 Rate: To l 0.9% 02:42: prime line [place] (titrate) and flush 250 mL remaining blood products., Dosing Weight 80.909, kg, Route: IV, Total Volume: 250, Priority: Routine, Start Date: 05/13/18 21:42:00 CDT, Duration: 30 day, Stop date: 06/12/18 21:41:00 CDT, Replace Every: 24 hr normal No 1,000 mL, Memori a saline 0.9% 12 Rate: 75 l IV 1,000 mL 01:21: ml/hr, Infuse over: 13.3 hr, Route: IV, Dosing Weight 80.909 kg, Total Volume: 1,000, Start date: 05/13/18 20:21:00 CDT, Duration: 30 day, Stop date: 06/12/18 20:20:00 CDT, 2.05, m2 Morphine No Notes: Memoria 3-11 (Same l 22:48: as:MORPhin [place] 00 e Sulfate) albumin No 250 mL, Memoria human 5% 3 Route: IV, l intravenous 17:52: Dosing Herm ladi solution Weight 80.909, kg, ONCE, NOW, Start date: 05/13/18 12:52:00 CDT, Stop date: 05/13/18 12:52:00 CDT, Indication : Other see comments morphine No Route: IV, Mem oria Sulfate 05-13 Drug form: l (ANES) 15:36: INJ, ONCE, [place] nn 00 Stop date: 05/13/18 10:36:00 CDT sugammadex No Route: IV, M emoria (ANES) 05-13 Drug form: l 14:05: SOLN, [place] 00 ONCE, Stop date: 05/13/18 9:05:00 CDT acetaminoph No Route: IV, Memoria en (ANES) 05-13 Drug form: l 14:05: INJ, ONCE, [place] 00 Stop date: 05/13/18 9:05:00 CDT Albuterol No Notes: SEE Me moria 0.83 MG/ML - RT l Inhalant 13:39: DOCUMENTAT [place] Solution 00 ION (Same as: Proventil) Hydralazine No Notes: Kuldeep teto 3-11 (Same as: l 13:39: Apresoline ) Push over 5 minutes Hydromorpho No Notes: Kuldeep teto ne -11 Same as l 13:39: Dilaudid Morphine No Notes: Memoria 3-11 (Same l 13:39: as:MORPhin [place] Sulfate) Naloxone No Notes: Memoria 3-11 Same as l 13:39: Narcan Flumazenil No Notes: Memor ia -11 (Same as: l 13:39: Romazicon) Dexamethaso 2019-0 No Notes: Kuldeep teto ne 3-11 Concentrat l 13:39: ion: 4mg/ml Ondansetron 2018-0 No Notes: Kuldeep teto 3-11 (Same as: l 13:39: Zofran) MEDICATION WASTE Product Size: 4 mg Product Wasted: ___ mg esmolol No Route: IV, Ukldeep teto (ANES) 3- Drug form: l 13:38: INJ, ONCE, Stop date: 05/13/18 8:38:00 CDT fentaNYL 2018-0 No Route: IV, Mem oria (ANES) 3- Drug form: l 13:28: INJ, ONCE, Stop date: 05/13/18 8:28:00 CDT midazolam 2018- No Route: IV, Me moria (ANES) 3- Drug form: l 13:23: SOLN, ONCE, Stop date: 05/13/18 8:23:00 CDT rocuronium 2018-0 No Route: IV, M emoria (ANES) 3- Drug form: l 13:23: INJ, ONCE, Stop date: 05/13/18 8:23:00 CDT lidocaine 2018-0 No Route: IV, Me moria (ANES) 3- Drug form: l 13:23: INJ, ONCE, Stop date: 05/13/18 8:23:00 CDT propofol 2018-0 No Route: IV, Mem oria (ANES) 3- Drug form: l 13:23: INJ, ONCE, Stop date: 05/13/18 8:23:00 CDT phenylephri 2018- No Route: IV, Memoria ne (ANES) 3- Drug form: l 13:18: INJ, ONCE, Stop date: 05/13/18 8:18:00 CDT ePHEDrine 2018-0 No Route: IV, Me moria (ANES) 3-11 Drug form: l 13:08: INJ, ONCE, Stop date: 05/13/18 8:08:00 CDT Lactated 0 No Route: IV, Mem oria Ringers 3-11 Total l Injection 12:09: Volume: Marcia nn IV (ANES) 00 1,000, 1000 mL Start date: 05/13/18 7:09:00 CDT, Stop date: 05/13/18 8:09:00 CDT Vancomycin No 2001 mg: Me moria 05-11 infuse l 20:00: over 2.5 hours heparin No Notes: Memoria - porcine l 15:00: heparin Acetaminoph No Notes: Kuldeep teto en 325 MG / 05-11 (Same as: l Hydrocodone 01:40: [place] Marcia nn Bitartrate 00 325/5) Do 5 MG Oral not exceed Tablet 4gm/day of [[place] acetaminop 5/325] hen. 24 HR No 25 mg, 1 Memoria Metoprolol 3-08 tab, l Tartrate 25 15:00: Route: PO, [place] MG Extended 00 Drug form: Release ERTAB, Tablet Daily, [Toprol] Start date: 05/10/18 9:00:00 RUBBER INSULATOR, Duration: 30 day, Stop date: 06/08/18 9:00:00 CDT ferrous 0 No Notes: Memoria sulfate 05-10 Dose=___mg l 15:00: elemental iron duloxetine No 30 mg, 1 Mem oria 3-08 cap, l 15:00: Route: PO, [place] 00 Drug form: DRC, Daily, Dosing Weight 80.909, kg, Start date: 05/10/18 9:00:00 RUBBER INSULATOR, Duration: 30 day, Stop date: 06/08/18 9:00:00 CDT clopidogrel 2018-0 No Notes: Kuldeep teto 3-08 (Same As: l 15:00: Plavix) Lisinopril No Notes: Memor ia 3-08 (Same as: l 15:00: Prinivil, Zestril) Saline No 10 mL, Memoria Flush 0.9% 05-10 Route: l 06:00: IVP, Drug Form: INJ, Dosing Weight 80.909, kg, Q8H, Start date: 05/10/18 0:00:00 RUBBER INSULATOR, Duration: 30 day, Stop date: 06/08/18 16:00:00 CDT Mirtazapine No Notes: Kuldeep teto 3-08 (Same l 03:00: as:Remeron [place] 00 ) Trazodone No Notes: Memori a Hydrochlori 3-08 (Same As: l de 50 MG 03:00: Desyrel) [place] nn Oral Tablet atorvastati No Notes: Kuldeep teto n 3-08 (Same as: l 03:00: Lipitor) [place] Saline No 10 mL, Memoria Flush 0.9% 05-09 Route: l 23:54: IVP, Drug Form: INJ, Dosing Weight 80.909, kg, PRN, PRN Line Flush, Start date: 05/09/18 17:54:00 RUBBER INSULATOR, Duration: 30 day, Stop date: 06/08/18 18:53:00 CDT cefepime No Notes: [facility]oria 3-07 (Same As: l 23:00: Maxipime) [place] 00 MEDICATION WASTE Product Size: 1000 mg Product Wasted: ___ mg Buspirone No Notes: Memori a 3-07 (Same As: l 23:00: BuSpar) [place] Alprazolam No Notes: Memor ia 0.25 MG 05-09 With food l Oral Tablet 22:24: or milk Her fernandes [Xanax] 00 (Same as: Xanax) BD Normal No Notes: Memori a Saline -07 (Same as: l Flush 22:00: BD [place] Posiflush) Vancomycin No Notes: For M emoria 3-07 adult l 22:00: patients [place] 00 only: Round to nearest 250 mg per Medical Staff approval MEDICATION WASTE Product Size: 1000 mg Product Wasted: ___ mg Sodium No 25 mL, Memoria Chloride 05-09 Route: IV, l 0.9% IV 19:59: Start [place] 00 date: 05/09/18 13:59:00 RUBBER INSULATOR, Duration: 30 day, Stop date: 06/08/18 14:58:00 CDT, PRN Line Flush BD Normal No Notes: Memori a Saline 3-07 (Same as: l Flush 19:59: BD [place] 00 Posiflush) BD Normal No Notes: Memori a Saline 3-07 (Same as: l Flush 19:58: BD [place] 00 Posiflush) tramadol Yes 100 mg = 2 Mem oria hydrochlori 3-07 tab, PO, l de 50 MG 19:54: Bedtime, 0 Her fernand[place] Oral Tablet 00 Refill(s) Cathflo No 1 mg, 1 Memoria Activase 2 3-07 mL, Route: l mg 19:28: INJ, Drug [place] injection 00 form: SOLN, ONCE, Dosing Weight 80.909, kg, Start date: 05/09/18 13:28:00 RUBBER INSULATOR, Stop date: 05/09/18 13:28:00 RUBBER INSULATOR, [place] CVAD < 7 [place] alteplase 2 No 1 mg, 1 Mem oria mg 3-07 mL, Route: l injection 19:28: INJ, Drug [place] 00 form: SOLN, ONCE, Dosing Weight 80.909, kg, Start date: 05/09/18 13:28:00 RUBBER INSULATOR, Stop date: 05/09/18 13:28:00 RUBBER INSULATOR, Occluded CVAD < 7 [place] Morphine No Notes: Memoria 3-07 (Same l 19:09: as:MORPhin [place] 00 e Sulfate) Acetaminoph No Notes: Do M emoria en 05-09 not exceed l 19:09: 4 gm/day. [place] 00 (Same as: Tylenol) Ondansetron No Notes: Kuldeep teto -07 (Same as: l 19:09: Zofran [place] 00 ODT) Glucagon No 1 mg, Memoria 3 Route: IM, l 19:09: Drug form: [place] 00 PDR/INJ, PRN, Dosing Weight 80.909, kg, PRN Blood Glucose Results, Start date: 05/09/18 13:09:00 RUBBER INSULATOR, Duration: 30 day, Stop date: 06/08/18 14:08:00 CDT Dextrose No 12.5 gm, Memor ia 50% Syringe 3-07 25 mL, l 19:09: Route: IVP, Drug Form: INJ, Dosing Weight 80.909, kg, PRN, PRN Blood Glucose Results, Start date: 05/09/18 13:09:00 RUBBER INSULATOR, Duration: 30 day, Stop date: 06/08/18 14:08:00 CDT TRAMADOL 50 2019-0 Yes [id number] TAKE ONE [facility] mg tablet 3-07 TABLET BY ity o f 00:00: MOUTH FOUR [place] 00 TIMES A Medical DAY Branch TRAMADOL 50 2019-0 Yes [id number] TAKE ONE [facility] mg tablet 3-07 TABLET BY ity o f 00:00: MOUTH FOUR [place] 00 TIMES A Medical DAY Branch TRAMADOL 50 2018-0 2020- No [id number] TAKE ONE [facility] mg tablet 3-07 09-10 TABLET BY ity of 00:00: 00:00 MOUTH FOUR [place] 00 :00 TIMES A Medical DAY Branch TRAMADOL 50 2018-0 2020- No [id number] TAKE ONE [facility] mg tablet 3-07 09-10 TABLET BY ity of 00:00: 00:00 MOUTH FOUR [place] 00 :00 TIMES A Medical DAY Branch midodrine 2019- Yes 2.5mg Take 1 Un[facility] rs 2.5 mg 2-08 tablet by ity of tablet 00:00: mouth 2 00 (two) Medical times Branch daily. midodrine 0 Yes 2.5mg Take 1 Unive rs 2.5 mg 2-08 tablet by ity of tablet 00:00: mouth 2 [place] 00 (two) Medical times Branch daily. midodrine 0 2020- No 2.5mg Take 1 Univ ers 2.5 mg 2-08 09-10 tablet by ity of tablet 00:00: 00:00 mouth 2 [place] 00 :00 (two) Medical times Branch daily. midodrine 0 2020- No 2.5mg Take 1 Univ ers [...] s with feeding tube less than 14 [place] (Dobhoff, J-tube etc) and pediatric and patients. Rocephin 1 2017-03 No 2 gm, IV, Me moria g injection 05-02 Q24H, X 14 l 18:26: day, # 14 [place] 00 ea, 0 Refill(s), other Furosemide 2017-03 No 20 mg = 1 Me moria 20 MG Oral - tab, PO, l Tablet 18:26: Daily, # 00 30 tab, 0 Refill(s), Pharmacy: [address] 2017-03 No Notes: Memori a Chloride 05-02 (Same as: l 16:19: K-Dur 20) [place] 00 "Do Not Crush" Give with food and full glass of water For patients unable to swallow tablet, dissolve in one half glass of water. Allow about 2 minutes for the tablets to disintegra te. Stir before giving to prepare slurry and administer . Please exclude Patient s with feeding tube less than 14 [place] (Dobhoff, J-tube etc) and pediatric and patients. multivitami 2017-03 No Notes: Kuldeep teto n with 05-02 (Same l minerals 15:00: as:Thera-M Her f[place]and[place] 00 , Theragran- M) WASTE: F/P - Black; E - Municipal Trash Bin Give with food. atorvastati 2017-03 No Notes: Kuldeep teto n - (Same as: l 03:00: Lipitor) [place] 00 Trazodone 2017-03 No Notes: Memori a Hydrochlori - (Same As: l de 50 MG 03:00: Desyrel) [place]cia nn Oral Tablet 00 Mirtazapine 2017-03 No Notes: Kuldeep teto 2-28 (Same l 03:00: as:Remeron [place] 00 ) Beneprotein 2017-03 No Notes: Kuldeep teto 7 gm pkt 05-01 (Same as: l 22:30: Beneprotei [place] 00 n) Ceftriaxone 2017-03 No Notes: Kuldeep teto 2-27 (Same As: l 19:00: Rocephin). Use with 100 mL NS and infuse over 30 min MEDICATION WASTE Product Size: 2000 mg Product Wasted: ___ mg ferrous 2017-03 No Notes: Memoria sulfate 2-27 Give with l 15:24: food. iron elemental [id number] as ferrous sulfate Dose=___mg elemental iron duloxetine 2017-03 No Notes: Memor ia 2-27 (Same as: l 15:24: Cymbalta) [place] 00 (Do Not Crush) clopidogrel 2017-03 No Notes: Kuldeep teto 2-27 (Same As: l 15:24: Plavix) Buspirone 2017-03 No Notes: Memori a 2-27 (Same As: l 15:24: BuSpar) Vancomycin 2017-03 No 2001 mg: Me moria 2- infuse l 15:24: over 2.5 [place] 00 hours metoprolol 2017-03 No Notes: Memor ia extended 2-27 (Same as: l release 15:24: Toprol XL) Herm Do Not Crush Lisinopril 2017-03 No Notes: Memor ia 2-27 (Same as: l 15:24: Prinivil, Zestril) Enoxaparin 2017-03 No Notes: Memor ia 2-27 (Same as: l 15:00: Lovenox) [place] 00 Saline 2017-03 No Notes: [facility]oria Flush 0.9% 2-27 (Same as: l 15:00: BD [place] 00 Posiflush) Furosemide 2017-03 No Notes: Memor ia 2-27 (Same as: l 15:00: Lasix) [place] 00 MEDICATION WASTE Product Size: 40 mg Product Wasted: ___ mg Dexamethaso 2017-03 No Notes: Kuldeep teto ne 2-27 Concentrat l 09:59: ion: [place] 00 4mg/ml Benadryl 2017-03 No Notes: Memoria 2-27 (Same as: l 08:25: Benadryl) Saline 2017-03 No Notes: [facility] Flush 0.9% 2-27 (Same as: l 08:24: BD [place] Posiflush) Benadryl 2017-03 No Notes: [facility]oria 2-27 (Same as: l 06:45: Benadryl) [place] 00 Dexamethaso 2017-03 No 12 mg, 3 Me moria ne 2-27 mL, Route: l 06:45: IVP, Drug form: INJ, ONCE, Dosing Weight 83.182, kg, Priority: STAT, Start date: 02/28/18 0:45:00 RUBBER INSULATOR, Stop date: 02/28/18 0:45:00 RUBBER INSULATOR tramadol 2017-03 No 50 mg = 1 Kuldeep teto hydrochlori 2-20 tab, PO, l de 50 MG 18:02: Q8H, PRN Marcia nn Oral Tablet 00 Pain, X 3 day, # 7 tab, 0 Refill(s) vancomycin 2017-03 No 1.25 gm = Me moria 1.25 g/250 2-20 250 mL, l mL-NaCl 17:58: IVPB, [place] 0.9% 00 Q12H, 0 intravenous Refill(s) solution [...] moria 2-20 infuse l 03:00: over 2.5 [place] 00 hours Fleet Enema 2017-03 No 12 years, Memoria 2-19 Pediatric l 17:47: Dosing [place] 00 Lisinopril 2017-03 No Notes: Memor ia 2-19 (Same as: l 15:18: Prinivil, [place] 00 Zestril) Sodium 2017-03 No 25 mL, Memoria Chloride 2-18 Route: IV, l 0.9% IV 14:04: Start [place] 00 date: 02/19/18 8:04:00 RUBBER INSULATOR, Duration: 30 day, Stop date: 03/21/18 8:03:00 RUBBER INSULATOR, PRN Line Flush BD Normal 2017-03 No Notes: Memori a Saline -18 (Same as: l Flush 14:04: BD [place] 00 Posiflush) Zinc 2017-03 No Notes: [facility] Sulfate 2-17 (Zinc l 19:30: sulfate [place] 00 capsule) - 220 mg Zinc sulfate = 50 mg elemental zinc Same as Zinc Sulfate Beneprotein 2017-03 No Notes: Kuldeep teto 7 gm pkt 2-17 (Same as: l 18:38: Beneprotei [place] 00 n) ferrous 2017-03 No Notes: [facility]oria sulfate 2-17 Give with l 16:37: food. iron elemental [id number] as ferrous sulfate Dose=___mg elemental iron Docusate 2017-03 No Notes: [facility] Sodium 100 2-17 (Same as: l MG Oral 03:00: Colace) [place] Capsule 00 (Do Not Crush) Miralax 2017-03 [...] (Same as: l MG Oral 15:00: Colace) [place] Capsule 00 (Do Not Crush) Enoxaparin 2017-03 No Notes: Memor ia 2-14 (Same as: l 15:00: Lovenox) [place] 00 morphine 2017-03 No Notes: Memoria 0.5 mg/mL 2-14 (Same l preservativ 13:38: as:MORPhin [place] e-free 00 e Sulfate) injectable solution Mirtazapine [...] Total Volume: 1,000, Start date: 02/14/18 17:46:00 RUBBER INSULATOR, Duration: 30 day, Stop date: 03/16/18 17:45:00 RUBBER INSULATOR, 2.1, m2 Dulcolax 2017-03 No Notes: [facility] Laxative 2-13 (Same As: l 23:46: Dulcolax, [place] 00 Correctol) (Do Not Crush) "Do Not Crush" Ondansetron 2017-03 No Notes: Kuldeep teto 2-13 (Same as: l 23:46: Zofran [place] 00 ODT) Diphenhydra 2017-03 No Notes: Kuldeep teto mine 2-13 (Same as: l 23:46: Benadryl) [place] 00 Acetaminoph 2017-03 No Notes: Max Memoria en 2-13 acetaminop l 23:46: hen = 4000 [place] 00 mg/day (4 gm/day). (Same as: Tylenol) Acetaminoph 2017-03 No Notes: Kuldeep teto en 325 MG / 2-13 (Same as: l Hydrocodone 23:46: [place] Marcia nn Bitartrate 00 325/5) Do 5 MG Oral not exceed Tablet 4gm/day of acetaminop hen. sugammadex 2017-03 No Route: IV, M emoria (ANES) 2-13 Drug form: l 22:11: SOLN, [place] 00 ONCE, Stop date: 02/14/18 16:11:00 RUBBER INSULATOR ePHEDrine 2017-03 No Route: IV, Me moria (ANES) 2-13 Drug form: l 22:07: INJ, ONCE, [place] 00 Stop date: 02/14/18 16:07:00 RUBBER INSULATOR succinylcho 2017-03 No Route: IV, Memoria line (ANES) 2-13 Drug form: l 22:02: INJ, ONCE, Stop date: 02/14/18 16:02:00 RUBBER INSULATOR phenylephri 2017-03 No Route: IV, Memoria ne (ANES) 2-13 Drug form: l 22:02: INJ, ONCE, Stop date: 02/14/18 16:02:00 RUBBER INSULATOR dexamethaso 2017-03 No Route: IV, Memoria ne (ANES) 2-13 Drug form: l 22:02: INJ, ONCE, Stop date: 02/14/18 16:02:00 RUBBER INSULATOR ondansetron 2017-03 No Route: IV, Memoria (ANES) 2-13 Drug form: l 22:02: INJ, ONCE, Stop date: 02/14/18 16:02:00 RUBBER INSULATOR fentaNYL 2017-03 No Route: IV, Mem oria (ANES) 2-13 Drug form: l 21:57: INJ, ONCE, Stop date: 02/14/18 15:57:00 RUBBER INSULATOR lidocaine 2017-03 No Route: IV, Me moria (ANES) 2-13 Drug form: l 21:57: INJ, ONCE, Stop date: 02/14/18 15:57:00 RUBBER INSULATOR propofol 2017-03 No Route: IV, Mem oria (ANES) 2-13 Drug form: l 21:57: INJ, ONCE, Stop date: 02/14/18 15:57:00 RUBBER INSULATOR rocuronium 2017-03 No Route: IV, M emoria (ANES) 2-13 Drug form: l 21:57: INJ, ONCE, Stop date: 02/14/18 15:57:00 RUBBER INSULATOR midazolam 2017-03 No Route: IV, Me moria (ANES) 2-13 Drug form: l 21:57: SOLN, 00 ONCE, Stop date: 02/14/18 15:57:00 RUBBER INSULATOR Promethazin 2017-03 No Notes: Do M emoria e 2-13 not give l 21:47: IV push. (Same as: Phenergan) Ondansetron 2017-03 No Notes: Kuldeep teto 2-13 (Same as: l 21:47: Zofran) [place] 00 MEDICATION WASTE Product Size: 4 mg Product Wasted: ___ mg Metoprolol 2017-03 No Notes: Memor ia 2-13 (Same as: l 21:47: Lopressor) [place] 00 Push over 2 minutes Ketorolac 2017-03 No 4 days Memor ia 2-13 l 21:47: MEDICATION [place] WASTE Product Size: 30 mg Product Wasted: ___ mg Labetalol 2017-03 No Notes: Memori a 2-13 (Same as: l 21:47: Normodyne, [place] 00 Trandate) Push over 2 minutes Give bolus over 2-3 minutes. Sodium 2017-03 No 500 mL, Memoria Chloride 2-13 1500 l 0.9% 21:47: ml/hr, [place] (Bolus) IV 00 Infuse Over: 20 minutes, Route: IV, 500, Drug form: INJ, ONCE, Dosing Weight 85 kg, Start date: 02/14/18 15:47:00 RUBBER INSULATOR, Stop date: 02/14/18 15:47:00 RUBBER INSULATOR Naloxone 2017-03 No Notes: Memoria 2-13 Same as l 21:47: Narcan [place] 00 Flumazenil 2017-03 No Notes: Memor ia 2-13 (Same as: l 21:47: Romazicon) [place] 00 Morphine 2017-03 No Notes: Memoria 2-13 (Same l 21:47: as:MORPhin [place] 00 e Sulfate) Hydromorpho 2017-03 No Notes: Kuldeep teto ne 2-13 Same as l 21:47: Dilaudid [place] 00 vancomycin 2017-03 No Route: IV, M emoria (ANES) 1000 2-13 Drug form: l mg 21:45: INJ, Start [place] 00 date: 02/14/18 15:45:00 RUBBER INSULATOR, Stop date: 02/14/18 16:45:00 RUBBER INSULATOR Sodium 2017-03 No Route: IV, Memor ia Chloride 2-13 Total l 0.9% IV 21:08: Volume: [place] (ANES) 1000 00 1,000, mL Start date: 02/14/18 15:08:00 RUBBER INSULATOR, Stop date: 02/14/18 16:08:00 RUBBER INSULATOR Ativan 2017-03 No Notes: Memoria 2-13 (Same [...] Memoria 2-13 (Same As: l 15:00: Plavix) [place] 00 atorvastati 2017-03 No Notes: Kuldeep teto n 2-13 (Same as: l 03:00: Lipitor) [place] 00 Trazodone 2017-03 No Notes: Memori a Hydrochlori 2-13 (Same As: l de 50 MG 03:00: Desyrel) Marcia nn Oral Tablet 00 Sodium 2017-03 No 250 mL, Memoria Chloride 2-13 Rate: To l 0.9% 01:24: prime line [place] (titrate) 00 and flush 250 mL remaining blood products., Dosing Weight 85, kg, Route: IV, Total Volume: 250, Priority: Routine, Start Date: 02/13/18 19:24:00 RUBBER INSULATOR, Duration: 30 day, Stop date: 03/15/18 19:23:00 RUBBER INSULATOR, Replace Every: 24 hr Vancomycin 2017-03 No [...] s with feeding tube less than 14 [place] (Dobhoff, J-tube etc) and pediatric and patients. Buspirone 2017-03 No Notes: Memori a 2-12 (Same As: l 23:00: BuSpar) [place] 00 NS 1,000 mL 2017-03 No 1,000 mL, M emoria 12 Rate: 75 l 22:01: ml/hr, [place] 00 Infuse over: 13.3 hr, Route: IV, Dosing Weight 85 kg, Total Volume: 1,000, Start date: 02/13/18 16:01:00 RUBBER INSULATOR, Duration: 30 day, Stop date: 03/15/18 16:00:00 RUBBER INSULATOR, 2.1, m2 Rocephin + 2017-03 No Notes: [...] emoria 2-12 Daily, 0 l 21:11: Refill(s) [place] 00 metoprolol 2017-03 No 25 mg = [...] PO, l oral tablet 21:11: Bedtime, # [place] 00 30 tab, 0 Refill(s) busPIRone 2017-03 No 10 mg = 1 Mem oria 10 mg oral 2-12 tab, PO, l tablet 21:11: BID, 0 [place] 00 Refill(s) Sulfamethox 2017-03 No 1 tab, PO, Memoria azole 800 2-12 BID, # 14 l MG / 21:11: tab, 0 [place] Trimethopri 00 Refill(s) m 160 MG Oral [...] 2-12 not exceed l 20:53: 4 gm/day. [place] (Same as: Tylenol) Ondansetron 2017-03 No Notes: Kuldeep teto 2-12 (Same as: l 20:53: Zofran) [place] 00 MEDICATION WASTE Product Size: 4 mg Product Wasted: ___ mg Glucagon 2017-03 No 1 mg, Memoria 2-12 Route: IM, l 20:53: Drug form: PDR/INJ, PRN, kg, PRN Blood Glucose Results, Start date: 02/13/18 14:53:00 RUBBER INSULATOR, Duration: 30 day, Stop date: 03/15/18 14:52:00 RUBBER INSULATOR Dextrose 2017-03 No 25 gm, 50 Kuldeep teto 50% Syringe 2-12 mL, Route: l 20:53: IVP, Drug Form: INJ, kg, PRN, PRN Blood Glucose Results, Start date: 02/13/18 14:53:00 RUBBER INSULATOR, Duration: 30 day, Stop date: 03/15/18 14:52:00 RUBBER INSULATOR DULoxetine 2017-03 No 30 mg = 1 [...] , 8.6 mg l 18:48: =, PO, [place] 00 Daily, Refill(s) 0 atorvastati 2017-03 Yes 80 mg = 1 M emoria n 80 mg 2-12 tab, PO, l oral tablet 18:48: Bedtime, 0 [place] 00 Refill(s) midodrine 2017-03 No 5 mg = 2 Kuldeep teto 2.5 mg oral 2-12 tab, PO, l tablet 18:48: Daily, # [place] 00 180 tab, 0 Refill(s) busPIRone 2017-03 Yes 10 mg = 1 Mem oria 10 mg oral 2-12 tab, PO, l tablet 18:48: BID, 0 [place] 00 Refill(s) Trazodone 2017-03 No 50 mg = 1 Mem oria Hydrochlori 2-12 tab, PO, l de 50 MG 18:48: TID, # 90 Herm ladi Oral Tablet 00 tab, 0 Refill(s) clopidogrel 2017-03 Yes [id number] 75mg Take 1 Univers 75 mg 1-14 07 tablet by ity of tablet 00:00: mouth [place] 00 daily. [facility] clopidogrel 2017-03 Yes [id number] 75mg Take 1 Univers 75 mg 1-14 07 tablet by ity of tablet 00:00: mouth [place] 00 daily. [facility] clopidogrel 2017-03 2020- No [id number] 75mg Take 1 Univers 75 mg 1-14 09-10 tablet by ity of tablet 00:00: 00:00 mouth [place] 00 :00 daily. [facility] clopidogrel 2017-03 2020- No [id number] 75mg Take 1 Univers 75 mg 1-14 09-10 tablet by ity of tablet 00:00: 00:00 mouth [place] 00 :00 daily. [facility] DULoxetine 2017-03 Yes [id number] 30mg Take 1 Univers 30 mg 0-22 capsule by ity of capsule 00:00: mouth [place] 00 daily. Medical [facility] busPIRone 2017-03 Yes [id number] 10mg Take 1 Un jody 10 mg 0-22 tablet by ity of tablet 00:00: mouth 2 [place] 00 (two) Medical times Branch daily. DULoxetine 2017-03 Yes [id number] 30mg Take 1 Univers 30 mg 0-22 capsule by ity of capsule 00:00: mouth [place] 00 daily. [facility] busPIRone 2017-03 Yes [id number] 10mg Take 1 Un jody 10 mg 0-22 tablet by ity of tablet 00:00: mouth 2 [place] 00 (two) Medical times Branch daily. DULoxetine 2017-03 2020- No [id number] 30mg Take 1 Univers 30 mg 0-22 09-10 capsule by ity of capsule 00:00: 00:00 mouth [place] 00 :00 daily. [facility] busPIRone 2017-03 2020- No [id number] 10mg Take 1 U nivers 10 mg 0-22 09-10 tablet by ity of tablet 00:00: 00:00 mouth 2 [place] 00 :00 (two) Medical times Branch daily. DULoxetine 2017-03 2020- No [id number] 30mg Take 1 Univers 30 mg 0-22 09-10 capsule by ity of capsule 00:00: 00:00 mouth [place] 00 :00 daily. Medical [facility] busPIRone 2017-03- No [id number] 10mg Take 1 U nivers 10 mg [...] Uni vers e 40 mg EC 9-08 -09 tablet by ity of tablet 00:00: 00:00 mouth [place] 00 :00 daily. [facility] pantoprazol 2018-0 2020- No 40mg Take 1 Uni vers e 40 mg EC 9-08 -09 tablet by ity of tablet 00:00: [...] 2021-06-01 15:26:00 101.152 kg Kaela S eybold BMI 2021-06-01 15:26:00 32.00 kg/m2 Kaela S eybold Body weight 2021-05-03 19:49:00 102.059 kg Kaela S eybold BMI 2021-05-03 19:49:00 32.28 kg/m2 Kaela S eybold Systolic blood 2021-05-03 19:49:00 130 mm[Hg] Kaela Seybold pressure Diastolic blood 2021-05-03 19:49:00 78 mm[Hg] Kelse y [place] pressure Heart rate 2021-05-03 19:49:00 109 /min Kaela S eybold Body temperature 2021-05-03 19:49:00 36.67 Aretha Kaycee ey [place] Respiratory rate 2021-05-03 19:49:00 21 /min Kaycee ey [place] Body height 2021-05-03 19:49:00 177.8 cm Kaela S eybold Systolic blood 2020-01-12 19:23:00 145 mm[Hg] Univer sity of pressure [facility] Diastolic blood 2020-01-12 19:23:00 93 mm[Hg] Unive [...] 92 /min University of Arterial blood by [facility] tenzin Pulse oximetry Branch Systolic blood 2020-01-12 19:23:00 145 mm[Hg] Univer sity of pressure [place] [facility] Diastolic blood 2020-01-12 19:23:00 93 mm[Hg] Unive rsity of pressure [place] [facility] Heart rate 2020-01-12 19:12:00 91 /min [facility] [place] [facility] Respiratory rate 2020-01-12 19:12:00 17 /min Univ [facility] [place] [facility] Body height 2020-01-12 19:12:00 180.3 cm [facility] [place] [facility] Body weight 2020-01-12 19:12:00 108.5 kg [facility] [place] [facility] BMI 2020-01-12 19:12:00 33.36 kg/m2 [facility] [place] [facility] Oxygen saturation in 2020-01-12 19:12:00 92 /min University of Arterial blood by [place] [facility] teznin Pulse oximetry Branch Oxygen saturation in 2019-11-13 19:01:00 96 /min University of Arterial blood by [place] Medi tenzin Pulse oximetry Branch Systolic blood 2019-11-13 19:01:00 131 mm[Hg] Univer sity of pressure [place] [facility] Diastolic blood 2019-11-13 19:01:00 73 mm[Hg] Unive rsity of pressure [place] [facility] Heart rate 2019-11-13 19:01:00 79 /min [facility] [place] [facility] Body temperature 2019-11-13 19:01:00 36.17 Aretha [facility] [place] [facility] Respiratory rate 2019-11-13 19:01:00 24 /min Univ [facility] [place] [facility] Body height 2019-11-13 19:01:00 180.3 cm [facility] Body weight 2019-11-13 19:01:00 109.317 kg [facility] BMI 2019-11-13 19:01:00 33.61 kg/m2 [facility] Respitory Rate 2018-08-16 16:55:00 Memori al [place] Systolic (mm Hg) 2018-08-16 16:55:00 Kuldeep rial [place] Diastolic (mm Hg) 2018-08-16 16:55:00 Mem orial [place] Heart Rate 2018-08-16 16:55:00 [facility] [place] Temperature Oral (F) 2018-08-16 13:25:00 96.9 F [facility] [place] Respitory Rate 2018-08-16 13:25:00 Memori al [place] Systolic (mm Hg) 2018-08-16 13:25:00 Kuldeep rial [place] Diastolic (mm Hg) 2018-08-16 13:25:00 Mem orial [place] Heart Rate 2018-08-16 13:25:00 [facility] [place] BMI Calculated 2018-08-16 07:46:00 Memori al [place] Height 2018-08-16 07:46:00 185.42 cm [facility] [place] Weight 2018-08-16 07:46:00 [facility] [place] Systolic (mm Hg) 2018-08-16 07:44:00 Kuldeep rial [place] Diastolic (mm Hg) 2018-08-16 07:44:00 Mem orial [place] Heart Rate 2018-08-16 07:44:00 [facility] [place] Respitory Rate 2018-08-16 07:44:00 Memori al [place] Temperature Oral (F) 2018-08-16 07:44:00 98.2 F [facility] [place] Temperature Oral (F) 2018-08-16 06:58:00 98.3 F [facility] [place] Weight 2018-08-16 01:17:00 [facility] [place] Height 2018-08-16 01:17:00 185.42 cm [facility] [place] BMI Calculated 2018-08-16 01:17:00 Memori al [place] Height 2018-06-19 10:53:00 185.42 cm [facility] [place] BMI Calculated 2018-06-19 10:53:00 Memori al [place] Weight 2018-06-19 10:53:00 [facility] [place] Temperature Oral (F) 2018-06-03 20:45:00 98.2 F [facility] [place] Systolic (mm Hg) 2018-06-03 20:45:00 Kuldeep rial [place] Diastolic (mm Hg) 2018-06-03 20:45:00 Mem orial [place] Respitory Rate 2018-06-03 20:45:00 Memori al [place] Heart Rate 2018-06-03 20:45:00 [facility] [place] Systolic (mm Hg) 2018-06-03 19:45:00 Kuldeep rial [place] Diastolic (mm Hg) 2018-06-03 19:45:00 Mem orial [place] Respitory Rate 2018-06-03 19:45:00 Memori al [place] Heart Rate 2018-06-03 19:45:00 [facility] [place] Systolic (mm Hg) 2018-06-03 19:15:00 Kuldeep rial [place] Diastolic (mm Hg) 2018-06-03 19:15:00 Mem orial [place] Respitory Rate 2018-06-03 19:15:00 Memori al [place] Heart Rate 2018-06-03 19:15:00 [facility] [place] Temperature Oral (F) 2018-06-03 18:45:00 97.8 F [facility] [place] BMI Calculated 2018-06-03 14:00:00 Memori al [place] Weight 2018-06-03 14:00:00 [facility] [place] Height 2018-06-03 14:00:00 185.4 cm [facility] [place] Temperature Oral (F) 2018-06-03 12:15:00 98.1 F [facility] [place] BMI Calculated 2018-06-02 23:24:00 Memori al [place] Weight 2018-06-02 23:24:00 [facility] [place] Height 2018-06-02 23:24:00 185.42 cm [facility] [place] Weight 2018-06-02 20:36:00 [facility] [place] Respitory Rate 2018-05-21 12:44:00 Memori al [place] Systolic (mm Hg) 2018-05-21 12:44:00 Kuldeep rial [place] Diastolic (mm Hg) 2018-05-21 12:44:00 Mem orial [place] Temperature Oral (F) 2018-05-21 12:44:00 98.3 F [facility] [place] Heart Rate 2018-05-21 12:44:00 [facility] [place] Systolic (mm Hg) 2018-05-21 09:00:00 Kuldeep rial [place] Diastolic (mm Hg) 2018-05-21 09:00:00 Mem orial [place] Heart Rate 2018-05-21 09:00:00 [facility] [place] Respitory Rate 2018-05-21 09:00:00 Memori al [place] Temperature Oral (F) 2018-05-21 09:00:00 97.8 F [facility] [place] Systolic (mm Hg) 2018-05-21 05:00:00 Kuldeep rial [place] Diastolic (mm Hg) 2018-05-21 05:00:00 Mem orial [place] Temperature Oral (F) 2018-05-21 05:00:00 98.0 F [facility] [place] Respitory Rate 2018-05-21 05:00:00 Memori al [place] Heart Rate 2018-05-21 05:00:00 [facility] [place] Weight 2018-05-09 18:49:00 [facility] [place] BMI Calculated 2018-05-09 18:49:00 Memori al [place] Height 2018-05-09 18:49:00 185.42 cm [facility] [place] Systolic (mm Hg) 2018-03-01 19:00:00 Kuldeep rial [place] Diastolic (mm Hg) 2018-03-01 19:00:00 Mem orial [place] Systolic (mm Hg) 2018-03-01 18:00:00 Kuldeep rial [place] Diastolic (mm Hg) 2018-03-01 18:00:00 Mem orial [place] Temperature Oral (F) 2018-03-01 18:00:00 98.0 F [facility] [place] Systolic (mm Hg) 2018-03-01 17:00:00 Kuldeep rial [place] Diastolic (mm Hg) 2018-03-01 17:00:00 Mem orial [place] Temperature Oral (F) 2018-03-01 14:00:00 98.1 F [facility] [place] Temperature Oral (F) 2018-03-01 11:42:00 98 F [facility] [place] Respitory Rate 2018-02-28 14:00:00 Memori al [place] Respitory Rate 2018-02-28 13:00:00 Memori [facility] [place] Respitory Rate 2018-02-28 12:00:00 [facility] [place] BMI Calculated 2018-02-28 10:03:00 Memori al [place] Height 2018-02-28 10:03:00 185.42 cm [facility] [place] Weight 2018-02-28 10:03:00 [facility] [place] Weight 2018-02-28 10:01:00 [facility] [place] BMI Calculated 2018-02-28 10:01:00 Memori al [place] Height 2018-02-28 10:01:00 185.42 cm [facility] [place] Temperature Oral (F) 2018-02-28 08:15:00 98.0 F [facility] [place] Systolic (mm Hg) 2018-02-28 08:15:00 Kuldeep rial [place] Diastolic (mm Hg) 2018-02-28 08:15:00 Mem orial [place] Respitory Rate 2018-02-28 08:15:00 Memori al [place] Systolic (mm Hg) 2018-02-28 07:45:00 Kuldeep rial [place] Diastolic (mm Hg) 2018-02-28 07:45:00 Mem orial [place] Respitory Rate 2018-02-28 07:45:00 Memori al [place] Systolic (mm Hg) 2018-02-28 07:27:00 Kuldeep rial [place] Diastolic (mm Hg) 2018-02-28 07:27:00 Mem orial [place] Temperature Oral (F) 2018-02-28 07:27:00 98.0 F [facility] [place] Respitory Rate 2018-02-28 07:27:00 Memori al [place] Temperature Oral (F) 2018-02-28 05:30:00 97.9 F [facility] [place] Height 2018-02-28 03:15:00 185.42 cm [facility] [place] Heart Rate 2018-02-28 03:15:00 [facility] [place] BMI Calculated 2018-02-28 03:15:00 Memori al [place] Weight 2018-02-28 03:15:00 [facility] [place] Systolic (mm Hg) 2018-02-21 16:48:00 Kuldeep rial [place] Diastolic (mm Hg) 2018-02-21 16:48:00 Mem orial [place] Temperature Oral (F) 2018-02-21 16:48:00 98.3 F [facility] [place] Respitory Rate 2018-02-21 16:48:00 Memori al [place] Heart Rate 2018-02-21 16:48:00 [facility] [place] Heart Rate 2018-02-21 13:47:00 [facility] [place] Temperature Oral (F) 2018-02-21 13:47:00 97.7 F [facility] [place] Systolic (mm Hg) 2018-02-21 13:47:00 Kuldeep rial [place] Diastolic (mm Hg) 2018-02-21 13:47:00 Mem orial [place] Respitory Rate 2018-02-21 13:47:00 Memori al [place] Temperature Oral (F) 2018-02-21 10:00:00 98.3 F [facility] [place] Systolic (mm Hg) 2018-02-21 10:00:00 Kuldeep rial [place] Diastolic (mm Hg) 2018-02-21 10:00:00 Mem orial [place] Heart Rate 2018-02-21 10:00:00 [facility] [place] Respitory Rate 2018-02-21 10:00:00 Memori al [place] BMI Calculated 2018-02-13 20:53:00 Memori al [place] Height 2018-02-13 20:53:00 185.42 cm [facility] [place] Weight 2018-02-13 20:53:00 [facility] [place] Height 2018-02-13 18:42:00 185.42 cm [facility] [place] Weight 2018-02-13 18:42:00 [facility] [place] BMI Calculated 2018-02-13 18:42:00 Memori al [place] Systolic (mm Hg) 2018-02-13 18:42:00 Kuldeep rial [place] Diastolic (mm Hg) 2018-02-13 18:42:00 Mem orial [place] Procedures Procedure Date / Time Performing Clinician Source Performed [id number] 2022-06-24 00:00:00 NGUCH.08 [facility] [id number] 2022-06-24 00:00:00 NGUCH.08 [facility] [id number] 2022-06-24 00:00:00 NGUCH.08 [facility] [id number] 2022-06-24 00:00:00 NGUCH.08 [facility] [id number] 2022-06-24 00:00:00 NGUCH.08 [facility] [id number] 2022-06-24 00:00:00 NGUCH.08 [facility] EXTERNAL PROVIDER - ADC 2020-11-03 05:01:00 [facility] [place] [facility] AGREEMENTS AUTHORIZATIONS 2019-11-11 05:01:00 Doctor Unassigned, [facility] AND IRREVOCABLE [place] [facility] ASSIGNMENTS (FORM 2000) CABG x 4 - Coronary 2017-11-02 05:00:00 [facility] [place] artery bypass grafts x 4 CABG - Coronary artery 2017-11-02 05:00:00 Doc vasquez [place] bypass graft Repair of umbilical 2016-03-05 00:00:00 [facility] hernia Encounters Start End Encounter Admission Attending Care Care Encounter Source Date/Time Date/Time Type Type Clinicians Facility Department ID 2022-06-24 2022-06-25 Inpatient EM Teofilo VERNONPM INTE.02 [id number] [facility] 02:18:00 11:01:00 [facility] 55 [facility] 2022-06-24 2022-06-24 Outpatient ELSA Red LABO [id number] [facility] 06:25:00 06:25:00 [facility] 77 [facility] 2022-05-11 2022-05-11 Outpatient KAELA ALLEN [id number] Kaela 00:00:00 00:00:00 PABLO Martinybol tonia 2021-06-17 2021-06-17 Outpatient KAELA ALLEN [id number] Kaela 00:00:00 00:00:00 PABLO Raymondol tonia 2021-06-13 2021-06-13 Outpatient KAELA BAILEY [id number] Kaela 00:00:00 00:00:00 VERITO Raymondol tonia 2021-06-01 2021-06-01 Office Garfield Allen [id number] Kaela 11:00:00 11:15:00 Visit Pablo Méndez [id number] Se sarbjit 1.2.7.2.686 [id number] 2021-05-31 2021-05-31 Outpatient KAELA ALLEN [id number] Kaela 10:30:00 10:30:00 PABLO Martinybol d 2021-05-04 2021-05-04 Outpatient LAB90 KAELA BRICE [id number] Kaela 09:45:00 09:45:00 Seybol tonia 2021-05-04 2021-05-04 Outpatient KAELA ALLEN [id number] Kaela 00:00:00 00:00:00 PABOL Seybol d 2021-05-03 2021-05-03 Office Garfield Allen [id number] Kaela 14:15:00 15:00:00 Visit Pablo Méndez [id number] Se sarbjit 1.2.7.2.686 [id number] 2021-05-03 2021-05-03 Outpatient KAELA ALLEN KAELA [id number] Kaela 00:00:00 00:00:00 PABLO Raymondol tonia 2021-01-13 2021-01-13 Outpatient R KEYONA SUAZO [facility] [id number] Univers 15:00:00 15:00:00 KEYONA SUAZO i ty of [facility] 2020-11-03 2020-11-03 Orders Doctor STEWART [id number] Univers 00:00:00 00:00:00 Only Unassigned, EMMA [id number] ity of [place] [facility] 4.2.7.2.686 Oni as [id number] [address] 2020-07-12 2020-07-12 [facility] [id number] Univers 13:00:00 13:00:00 JD ity o f [facility] 2020-05-11 2020-05-11 Patient Sami [facility] [id number] Univers 00:00:00 00:00:00 Outreach Mahesh PRIMARY [id number] [facility] [place] [id number] [address] 2020-05-11 2020-05-11 Patient Sami [facility] [id number] 00:00:00 00:00:00 Outreach Mahesh PRIMARY [id number] Arian CARE 4.2.7.2.686 PAVILLION [id number] 2020-02-06 2020-02-06 Outpatient Sue CARBAJAL [facility] [id number] Univers 13:00:00 13:00:00 LUCITA smith of [facility] 2020-01-19 2020-01-19 Telephone [facility] [id number] [facility] 00:00:00 00:00:00 Jd Fierro [id number] ity [place] [phone] Ms dical nal [address] [place] [address] 2020-01-19 2020-01-19 Telephone [facility] [id number] 00:00:00 00:00:00 Jd Fierro 350.1.13.10 [place] 4.2.7.2.686 Professio [id number] [address] 2020-01-14 2020-01-14 Outpatient R [facility] [id number] Univers 11:40:00 11:40:00 JD smith o cely [facility] 2020-01-12 2020-01-12 Office [facility] [id number] [facility] 12:41:56 13:52:29 Visit Jd Fierro 350.1.13.10 ity [place] [id number] Ms dical [address] 2020-01-12 2020-01-12 Office [facility] [id number] 12:41:56 13:52:29 Visit Jd Fierro 350.1.13.10 [place] 4.2.7.2.686 Professio [id number] [address] 2020-01-12 2020-01-12 Outpatient R [facility] [id number] Univers 13:00:00 13:00:00 HALLEBARRY sarah wong f [facility] 2019-11-13 2019-11-13 Office [facility] LETY 1.2.840 .114 [id number] Univers 13:03:27 14:10:15 Visit Arsen Dixon [facility] 350.1.13.10 it[place] [id number] [address] 2019-11-13 2019-11-13 Telephone Arsen Dixon 1.2.840.114 [id number] Univers 00:00:00 00:00:00 [facility] 350.1.13.10 it y of [place] [id number] [facility] 362 Branch 2019-11-11 2019-11-11 Outpatient ARSEN CORTEZ [facility] [id number] Univers 10:30:00 10:30:00 ity of [facility] 2019-11-11 2019-11-11 Orders Doctor TERRY [id number] Univers 00:00:00 00:00:00 Only Unassigned, EMMA 350.1.13.10 ity of [facility] 4.2.7.2.686 Oni as [id number] [facility] 009 Branch 2019-05-27 2019-05-27 Telephone Roa, TERRY 1.2.840.114 [id number] Univers 00:00:00 00:00:00 Sofia EMMA 350.1.13.10 it y of [facility] [place] [id number] [facility] 037 Branch 2019-03-28 2019-03-28 Telephone HUMPHREY Mcmahon 1.2.840.114 [id number] Univers 00:00:00 00:00:00 [facility] Y HEALTH 350.1.13.10 ity of [facility] 4[place] [id number] [facility] 059 Branch 2018-08-16 2018-08-16 Observatio [facility] [id number] Memoria 01:10:48 18:24:00 jasmina Ahuja 03 [facility] 2018-08-15 2018-08-16 Outpatient Emery [facility] [id number] 20:10:48 13:24:00 [place] 2018-06-21 2018-06-21 Bedded [facility] [id number] Memoria 15:57:00 21:41:00 Outpatient sue Ahuja 02 [facility] 2018-06-21 2018-06-21 Outpatient Pedro [facility] [id number] 10:57:00 16:41:00 Pepito Tapia 02 2018-06-02 2018-06-03 Inpatient nullFlavo [facility] [id number] Memoria 20:34:00 23:50:00 r Seymour 01 l [facility] 2018-06-02 2018-06-03 Outpatient Eddy, [facility] [id number] 15:34:00 18:50:00 Timothy 2018-05-09 2018-05-21 Inpatient nullFlavo [facility] [id number] Memoria 18:05:00 17:09:00 r Seymour 68 l [facility] 2018-05-09 2018-05-21 Outpatient Gabe, [facility] [id number] 12:05:00 12:09:00 Mmii 68 M 2018-05-08 2018-05-08 Ambulatory nullFlavo [facility] [id number] Memoria 19:30:00 19:30:00 Pre-Reg r Cardiology 03 [facility] 2018-05-08 2018-05-08 Outpatient [facility] [place] [id number] Memoria 13:30:00 13:30:00 03 l [place] 2018-05-08 2018-05-08 Outpatient Seymour, [facility] [id number] 13:30:00 13:30:00 Hectorracquel Vanegas 03 2018-04-29 2018-04-29 Ambulatory nullFlavo [facility] [id number] Memoria 16:30:00 16:30:00 Pre-Reg r Cardiology 02 [facility] 2018-04-29 2018-04-29 Outpatient [facility] IE [id number] Memoria 10:30:00 10:30:00 02 l [place] 2018-04-29 2018-04-29 Outpatient Seymour [facility] [id number] 10:30:00 10:30:00 Hector Gene 2018-04-05 2018-04-06 Outpt Diag nullFlavo [facility] [id number] Memoria 22:00:00 05:59:00 Services r Outpatient 00 [facility] 2018-04-05 2018-04-05 Outpatient Nghia Oneal [id number] 16:00:00 23:59:00 [id number] 3.615.30 5.30 2018-02-28 2018-03-01 Inpatient nullFlavo [facility] [id number] Memoria 09:45:00 20:05:00 r Seymour 63 l [facility] 2018-02-28 2018-03-01 Outpatient Jamie Rush [facility] [id number] 03:45:00 14:05:00 A 63 2018-02-28 2018-02-28 [facility] [id number] Memoria 03:10:00 08:14:00 r Seymour 00 [facility] 2018-02-27 2018-02-28 Outpatient Adam [facility] [id number] 21:10:00 02:14:00 Brigido Jennings 2018-02-13 2018-02-21 Inpatient [facility] [id number] Memoria 20:01:00 20:00:00 r Seymour 46 [facility] 2018-02-13 2018-02-21 Outpatient Venkata [facility] [id number] 14:01:00 14:00:00 Chi 46 [facility]ia 2018-02-13 2018-02-14 Outpatient nullFlavo [facility] [id number] Memoria 18:30:00 05:59:59 r Cardiology 01 [facility] 2018-02-13 2018-02-13 Outpatient Seymour [facility] [id number] 12:30:00 23:59:59 Hector Gene 2018-02-13 2018-02-13 Outpatient CALI [facility] [id number] Memoria 12:30:00 12:30:00 01 rebeca Seymour 2018-02-11 2018-02-11 Ambulatory nullFlavo [facility] [id number] Memoria 17:00:00 17:00:00 Pre-Reg r Cardiology 00 [facility] 2018-02-11 2018-02-11 Outpatient Seymour [facility] [id number] 11:00:00 11:00:00 Hector Gene 00 Results Test [...] CHOL) CHOLESTEROL/HDL 2.89 RATIO See_Comment RISK ASSOCIA CASIE WITH RATIO (test code = CHOL/HDL RATIOS: RISK CHOLHDL) MALE FEMALE1/2 AVERAGE 3.43 3.27AVERAG E 4.97 4.442X AVERAGE 9.55 7.053X AVERAGE 23.39 11.04 NOTE THAT THE REFERENCE VALUE IS RELATED TO RISK LEVELS ASRECOMMENDED B Y THE [facility] . [Automated mess age] The system which [employer] nerated this result tra nsmitted reference range : 0-. The reference range was not used to interpr et this result as normal/abnormal . HDL CHOLESTEROL 47 MG/DL 40-59 N (test code = HDL) NON-HDL CHOLESTEROL 89 mg/dL <130 (test code = NHDL) LIPOPROTEIN LDL 82 MG/DL 0-129 N <100 OPTIMAL 100 - 129 (test code = LDL) NEAR OPTIM AL/ABOVE [id number] - 15 9 OMPTUNLJUW298 - 189 HIGH>OR= 190 VE RY HIGHNOTE THAT G UIDELINES ARE PROVIDED BY NATIONAL CHOLESTEROLEDUC ATION PROGRAM ADULT T REATMENT PANEL III LDL/HDL (test code 1.74 Ratio See_Comment N [Automat ed message] The = LDL/HDL) system which [employer] nerated this result tra nsmitted reference range : 1.48-3.22 Avg. The reference range was not used to interpr et this result as normal/abnormal . BASIC METABOLIC [id number] 05:35:00 Test Item Value Reference Range Interpretation [...] MG/DL 8.5-10.1 L = CA) CBC W/AUTO [id number] 05:34:00 Test Item Value Reference Range Interpretation [...] DIFF REQUIRED NO DIFF/SCN CRITERIA SLIDE R ROBERT (test code = MDIFF) CONSISTA NT WITH AUTO DIFFERENTI AL. COAGULATION TIME [id number] 02:25:00 Test Item Value Reference Range Interpretation Comments COAGULATION TIME ACTIVATED (test code 267 SEC 74-125 H = ACT) - XR CHEST 1 [id number] 01:41:00 [facility] 1955 Sex: M Name: PATITO HARDYland : 1955 Age/S: 66 / M [id number] Unit #: [id number] Loc: [place] [address] Phys: Sydney De Leon MD Acct: [id number] Dis Date: Status: REG ER PHONE #: [phone] Exam Date: 06/24/2022138 FAX #: Reason: chest pain EXAMS: CPT: [id number] XR CHEST 1 V 51880 Fluoro Time: DAP (Gy m2): Air Kerma (mGy): AP Portable Chest Location Code M12 HISTORY: chest pain FINDINGS: The left lung base and costophrenic angle are not fully included in the flvdd-gv-gwqk. Mild atelectatic changes are present in the left lower lobe. Right lung is clear. There is no pneumothorax. Cardiac silhouette and mediastinum appear within normal limits. IMPRESSION: Mild left basilar sub segmental atelectasis. Limited study. at 0141 Reported and signed by: Janet Queen M.D. CC: Sydney De Leon MD PAGE 1 Signed Report Name: PATITO HARDY [place] : 1955 Age/S: 66 / M [id number] Unit #: [id number] Loc: [place] [address] Phys: Sydney De Leon MD Acct: [id number] Dis Date: Status: REG ER PHONE #: [phone] Exam Date: 06/24/2022138 FAX #: Reason: chest pain EXAMS: CPT: [id number] XR CHEST 1 V 45847 Fluoro Time: DAP (Gy m2): Air Kerma (mGy): (Continued) Technologist: Alice Posada, RT(R)(CT) Trnscb Date/Time: 06/24/2022 (0141) DelaneyMA50 Orig Print D/T: S: 06/24/2022 (9334) PAGE 2 Signed ReportBASIC METABOLIC [id number] 01:38:00 Test Item Value Reference Range Interpretation [...] the recommended for nadja for GFRby the [facility] on for Adults.The GFR will [...] CK) Completed by Nursing: NONT PRO-BRAIN NATRIURETIC [id number] 01:38:00 Test Item Value Reference Range Interpretation Comments NT PRO-BRAIN NATRIURETIC PEPTI 127 PG/ML 0-100 H (test code = PROBNP) Completed by Nursing: NOTROP-I HIGH [id number] 01:38:00 Test Item Value Reference Range Interpretation [...] URLs may varyby method. Completed by Nursing: PSF-DJUUQ7598-10-22 01:38:00 Test Item Value Reference Range Interpretation [...] CONFIRMAT ORY TESTS AND APPROPRIATECLIN ICAL EUALUATIONS. CBC W/O [id number] 01:19:00 Test Item Value Reference Range Interpretation [...] = 9.90 fL 7.0-9.6 H MPV) CHEM [id number] 09:13:00 Test Item Value Reference Range Interpretation Comments Bili Indirect (test code Unable to Calculate <=1.0 = Bili Indirect) [facility]2019-06-14 09:13:00 Test Item Value Reference Range Interpretation Comments Bili Direct (test code = Bili Direct) no gt <=0.3 [facility]2019-06-14 09:13:00 Test Item Value Reference Range Interpretation Comments Total Protein (test code = Total 6.9 6.4-8.4 Protein) [facility]2019-06-14 09:13:00 Test Item Value Reference Range Interpretation Comments Albumin Lvl (test code = Albumin Lvl) 3.0 3.5-5.0 [facility]2019-06-14 09:13:00 Test Item Value Reference Range Interpretation Comments Globulin (test code = Globulin) 3.9 2.7-4.2 [facility]2019-06-14 09:13:00 Test Item Value Reference Range Interpretation Comments Alk Phos (test code = Alk Phos) 214 39-136 [facility]2019-06-14 09:13:00 Test Item Value Reference Range Interpretation Comments Bili Total (test code = Bili Total) 0.3 0.2-1.3 [facility]2019-06-14 09:13:00 Test Item Value Reference Range Interpretation Comments AST (test code = AST) 207 <=37 [facility] CenterYadwire Technology [id number] 09:13:00 Test Item Value Reference Range Interpretation Comments A/G Ratio (test code = A/G Ratio) 0.8 1 0.7-1.6 [facility]2019-06-14 09:13:00 Test Item Value Reference Range Interpretation Comments ALT (test code = ALT) 148 <=65 [facility] HospitalOjslhyiIQBRDIQKWGKT1175-23-59 09:13:00 Test Item Value Reference Range Interpretation Comments AGAP (test code = AGAP) 11.2 10.0-20.0 [facility] HospitalWzbpcupGDROTICLRONG2192-73-78 09:13:00 Test Item Value Reference Range Interpretation Comments eGFR (test code = eGFR) 85 [facility] HospitalIxbrszvGIJSOYCHLTVW4785-69-41 09:13:00 Test Item Value Reference Range Interpretation Comments Creatinine Lvl (test code = Creatinine 0.96 0.50-1.40 Lvl) [facility] HospitalKphwhzbUJMUWWOQLGTS3393-97-21 09:13:00 Test Item Value Reference Range Interpretation Comments Potassium Lvl (test code = Potassium 4.2 3.5-5.1 Lvl) [facility] HospitalKxfepldYOIJECCZLKFZ0191-63-25 09:13:00 Test Item Value Reference Range Interpretation Comments Sodium Lvl (test code = Sodium Lvl) 141 135-145 [facility] HospitalXxdnsufMTZGEOXVWHLE2313-12-06 09:13:00 Test Item Value Reference Range Interpretation Comments Chloride Lvl (test code = Chloride Lvl) 110 95-109 [facility] HospitalIdgfhivHDJBOIZPNDUS4583-20-10 09:13:00 Test Item Value Reference Range Interpretation Comments CO2 (test code = CO2) 24 24-32 [facility] HospitalUkkjmxiRQQREQLKIBIU8339-98-64 09:13:00 Test Item Value Reference Range Interpretation Comments BUN (test code = BUN) 19 7-22 [facility] HospitalQpehjagOCTCCLWDRTYF1421-72-65 09:13:00 Test Item Value Reference Range Interpretation Comments Glucose Lvl (test code = Glucose Lvl) 86 70-99 [facility] HospitalKcffhfdKXWMXHXMNKOG7985-24-70 09:13:00 Test Item Value Reference Range Interpretation Comments Calcium Lvl (test code = Calcium Lvl) 9.0 8.5-10.5 [facility] CenterZlezsllFBYGVOPMKI9920-87-84 09:13:00 Test Item Value Reference Range Interpretation Comments Microcyte (test code = 1+ *ABN*(08/16/18 Microcyte) 4:13 AM) [facility] CenterGfsbeenRDSPUYUKWE1175-81-20 09:13:00 Test Item Value Reference Range Interpretation Comments Neutrophils # (test code = Neutrophils 2.7 1.5-8.1 #) [facility] CenterRmjsfvbERTFNIWMTQ5728-08-09 09:13:00 Test Item Value Reference Range Interpretation Comments Lymphocytes # (test code = Lymphocytes 1.3 1.0-5.5 #) [facility] CenterWkkjzddGGOKNHANQQ5086-04-51 09:13:00 Test Item Value Reference Range Interpretation Comments Segs (test code = Segs) 56.2 45.0-75.0 [facility] CenterSuyhjzyNRBKTJUSLW8809-03-65 09:13:00 Test Item Value Reference Range Interpretation Comments Monocytes # (test code = Monocytes #) 0.4 <=0.8 [facility] CenterXwkwpneFZPCVLBOYN6218-30-31 09:13:00 Test Item Value Reference Range Interpretation Comments Lymphocytes (test code = Lymphocytes) 26.8 20.0-40.0 [facility] CenterJesmuzmJWSKMRIGQB7301-29-91 09:13:00 Test Item Value Reference Range Interpretation Comments Monocytes (test code = Monocytes) 8.7 2.0-12.0 [facility] CenterUyredewKKLDGCBSAI3476-82-76 09:13:00 Test Item Value Reference Range Interpretation Comments Basophils (test code = Basophils) 2.1 <=1.0 [facility] CenterNskvttwFNLNRYTMJJ7993-65-85 09:13:00 Test Item Value Reference Range Interpretation Comments Eosinophils (test code = Eosinophils) 6.2 <=4.0 [facility] CenterCdsfurhQPEPCFGVZU0300-96-73 09:13:00 Test Item Value Reference Range Interpretation Comments Basophils # (test code = Basophils #) 0.1 <=0.2 [facility] CenterNgdzkgeDIRPOMNNTH6611-89-34 09:13:00 Test Item Value Reference Range Interpretation Comments Eosinophils # (test code = Eosinophils 0.3 <=0.5 #) [facility] CenterZlilavbOWJLFQBLQX0529-85-80 09:13:00 Test Item Value Reference Range Interpretation Comments MCV (test code = MCV) 77.7 80.0-94.0 [facility] CenterZhfhrtqTTRCJAVJZC0670-49-19 09:13:00 Test Item Value Reference Range Interpretation Comments Hgb (test code = Hgb) 10.5 14.0-18.0 [facility] CenterObanccxXYTIDCEQIB4804-87-01 09:13:00 Test Item Value Reference Range Interpretation Comments Hct (test code = Hct) 33.2 42.0-54.0 [facility] CenterFtbiwhxKIHLDQBUGC3961-71-96 09:13:00 Test Item Value Reference Range Interpretation Comments WBC (test code = WBC) 4.7 3.7-10.4 [facility] ZsfrucaSSTJYMOTXB7566-46-85 09:13:00 Test Item Value Reference Range Interpretation Comments RBC (test code = RBC) 4.27 4.70-6.10 [facility] CenterBlrjzweVALVLEFATM2484-31-37 09:13:00 Test Item Value Reference Range Interpretation Comments MCH (test code = MCH) 24.5 pg 27.0-31.0 [facility] CenterTteaenzQUTQVWITQS9977-72-50 09:13:00 Test Item Value Reference Range Interpretation Comments Platelet (test code = Platelet) 267 133-450 [facility] SaultYwfiggxEKVYEYPAEM0114-96-35 09:13:00 Test Item Value Reference Range Interpretation Comments MPV (test code = MPV) 7.8 7.4-10.4 [facility] CenterMsvcyikMCMIAXQWIB6953-79-78 09:13:00 Test Item Value Reference Range Interpretation Comments MCHC (test code = MCHC) 31.5 32.0-36.0 [facility] CenterZzdzcsvENBXBYEWDQ0502-13-17 09:13:00 Test Item Value Reference Range Interpretation Comments RDW (test code = RDW) 19.2 11.5-14.5 [facility] CenterHcpdajtFXSDTVXQBG2133-25-25 02:46:00 Test Item Value Reference Range Interpretation Comments CDC HIV 4th GEN (test Negative *NA*(08/15/18 code = CDC HIV 4th 9:46 PM) GEN) [facility] QYTPEKZ6957-62-01 02:44:00 Test Item Value Reference Range Interpretation Comments ABO/Rh (test code = ABO/Rh) A POS [facility] [employer] BANK WWLTNLZ0844-02-56 02:44:00 Test Item Value Reference Range Interpretation Comments Antibody Scrn (test Negative (08/15/18 9:44 code = Antibody Scrn) PM) [facility] CenterCARDIAC EWQYRFF3094-31-37 02:42:00 Test Item Value Reference Range Interpretation Comments Troponin-I (test code = Troponin-I) no gt <=0.40 [facility] CenterCHEM HYVGU7790-09-54 02:42:00 Test Item Value Reference Range Interpretation Comments Lipase Lvl (test code = Lipase Lvl) 165 73-393 [facility]2019-06-14 02:42:00 Test Item Value Reference Range Interpretation Comments Bili Indirect (test code = Bili 0.2 <=1.0 Indirect) [facility]2019-06-14 02:42:00 Test Item Value Reference Range Interpretation Comments Bili Total (test code = Bili Total) 0.3 0.2-1.3 [facility]2019-06-14 02:42:00 Test Item Value Reference Range Interpretation Comments Alk Phos (test code = Alk Phos) 203 39-136 [facility]2019-06-14 02:42:00 Test Item Value Reference Range Interpretation Comments AST (test code = AST) 194 <=37 [facility]2019-06-14 02:42:00 Test Item Value Reference Range Interpretation Comments ALT (test code = ALT) 109 <=65 [facility]2019-06-14 02:42:00 Test Item Value Reference Range Interpretation Comments Bili Direct (test code = Bili Direct) 0.1 <=0.3 [facility]2019-06-14 02:42:00 Test Item Value Reference Range Interpretation Comments Albumin Lvl (test code = Albumin Lvl) 3.0 3.5-5.0 [facility]2019-06-14 02:42:00 Test Item Value Reference Range Interpretation Comments Total Protein (test code = Total 6.9 6.4-8.4 Protein) [facility]2019-06-14 02:42:00 Test Item Value Reference Range Interpretation Comments Globulin (test code = Globulin) 3.9 2.7-4.2 [facility]2019-06-14 02:42:00 Test Item Value Reference Range Interpretation Comments A/G Ratio (test code = A/G Ratio) 0.8 1 0.7-1.6 [facility]2019-06-14 02:42:00 Test Item Value Reference Range Interpretation Comments eGFR (test code = eGFR) 68 [facility]2019-06-14 02:42:00 Test Item Value Reference Range Interpretation Comments Potassium Lvl (test code = Potassium 3.9 3.5-5.1 Lvl) [place] 769469-06-14 02:42:00 Test Item Value Reference Range Interpretation Comments Sodium Lvl (test code = Sodium Lvl) 139 135-145 [facility]2019-06-14 02:42:00 Test Item Value Reference Range Interpretation Comments Calcium Lvl (test code = Calcium Lvl) 8.6 8.5-10.5 [facility]2019-06-14 02:42:00 Test Item Value Reference Range Interpretation Comments CO2 (test code = CO2) 25 24-32 [facility]2019-06-14 02:42:00 Test Item Value Reference Range Interpretation Comments Chloride Lvl (test code = Chloride Lvl) 105 95-109 [facility]2019-06-14 02:42:00 Test Item Value Reference Range Interpretation Comments Creatinine Lvl (test code = Creatinine 1.16 0.50-1.40 Lvl) [facility]2019-06-14 02:42:00 Test Item Value Reference Range Interpretation Comments BUN (test code = BUN) 21 7-22 [facility]2019-06-14 02:42:00 Test Item Value Reference Range Interpretation Comments Glucose Lvl (test code = Glucose Lvl) 88 70-99 [facility]2019-06-14 02:42:00 Test Item Value Reference Range Interpretation Comments AGAP (test code = AGAP) 12.9 10.0-20.0 [facility] CenterCxovalhGTPVOFYNYT5801-38-47 02:42:00 Test Item Value Reference Range Interpretation Comments RDW (test code = RDW) 19.1 11.5-14.5 [facility] CenterXeujhdfVBMODYHVRD7986-76-96 02:42:00 Test Item Value Reference Range Interpretation Comments MPV (test code = MPV) 8.0 7.4-10.4 [facility] CenterOuhcdzaJJIFYLDVNB5778-87-91 02:42:00 Test Item Value Reference Range Interpretation Comments Platelet (test code = Platelet) 259 133-450 [facility] CenterDhacyhkTTIIZUGGXL8109-34-34 02:42:00 Test Item Value Reference Range Interpretation Comments MCHC (test code = MCHC) 31.2 32.0-36.0 [facility] CenterVddxzqyEOTQOFYHIR3032-76-28 02:42:00 Test Item Value Reference Range Interpretation Comments Hct (test code = Hct) 33.3 42.0-54.0 [facility] CenterJgwkydqXADPLUSKTF4505-34-97 02:42:00 Test Item Value Reference Range Interpretation Comments Hgb (test code = Hgb) 10.4 14.0-18.0 [facility] CenterKcvmbelVJNYJDRZOG5602-07-70 02:42:00 Test Item Value Reference Range Interpretation Comments RBC (test code = RBC) 4.26 4.70-6.10 [facility] CenterBczqdzxYIFKQYZCWA3547-85-53 02:42:00 Test Item Value Reference Range Interpretation Comments MCV (test code = MCV) 78.2 80.0-94.0 [facility] CenterUduzysaESDVLGGRUQ2554-51-80 02:42:00 Test Item Value Reference Range Interpretation Comments MCH (test code = MCH) 24.4 pg 27.0-31.0 [facility] CenterJjonqssAFMMWAJSKD4684-76-41 02:42:00 Test Item Value Reference Range Interpretation Comments WBC (test code = WBC) 6.0 3.7-10.4 [facility] CenterOmajcjdCYGSVYRBPI0192-17-18 02:42:00 Test Item Value Reference Range Interpretation Comments Neutrophils # (test code = Neutrophils 4.0 1.5-8.1 #) [facility] CenterAzhhpfgBWQTCWKRDG8109-34-70 02:42:00 Test Item Value Reference Range Interpretation Comments Lymphocytes # (test code = Lymphocytes 1.3 1.0-5.5 #) [facility] CenterBxchzarRFKTQPHJLH7300-84-09 02:42:00 Test Item Value Reference Range Interpretation Comments Basophils (test code = Basophils) 1.4 <=1.0 [facility] CenterBdlpfenIVCOVTNOBS9360-49-86 02:42:00 Test Item Value Reference Range Interpretation Comments Eosinophils (test code = Eosinophils) 3.5 <=4.0 [facility] CenterFvxcenaCDDUBCVSCS6324-11-14 02:42:00 Test Item Value Reference Range Interpretation Comments Lymphocytes (test code = Lymphocytes) 21.4 20.0-40.0 [facility] CenterRzjsrkhZDVNGVFIPN3432-57-32 02:42:00 Test Item Value Reference Range Interpretation Comments Monocytes (test code = Monocytes) 7.3 2.0-12.0 [facility] CenterZifqgicLWSUIPUDHM2453-67-31 02:42:00 Test Item Value Reference Range Interpretation Comments Basophils # (test code = Basophils #) 0.1 <=0.2 [facility] CenterOecjlbnYFPWMOURTA5004-59-15 02:42:00 Test Item Value Reference Range Interpretation Comments Microcyte (test code = 1+ *ABN*(08/15/18 Microcyte) 9:42 PM) [facility] CenterYqzneuyNQRMMZJIJH4414-27-13 02:42:00 Test Item Value Reference Range Interpretation Comments Monocytes # (test code = Monocytes #) 0.4 <=0.8 [facility] CenterSriatnnMTHXLMIBHT0763-51-69 02:42:00 Test Item Value Reference Range Interpretation Comments Eosinophils # (test code = Eosinophils 0.2 <=0.5 #) [facility] CenterHuxglxiYBGFHEHGHL2725-39-50 02:42:00 Test Item Value Reference Range Interpretation Comments Segs (test code = Segs) 66.4 45.0-75.0 [facility] CenterYuokgkqNUVAIBMWES7193-83-65 02:42:00 Test Item Value Reference Range Interpretation Comments PT (test code = PT) 13.5 s 12.0-14.7 [facility] CenterRxizqpcWUIMZNLOMX1552-64-81 02:42:00 Test Item Value Reference Range Interpretation Comments PTT (test code = PTT) 28.8 s 22.9-35.8 [facility] CenterOhldjzyIIBWSGMMBM4368-56-73 02:42:00 Test Item Value Reference Range Interpretation Comments INR (test code = INR) 1.05 1 0.85-1.17 [facility]: Yaonarsdb8775-51-56 20:00:00 Test Item Value Reference Range Interpretation Comments Culture: Anaerobic (test Culture In Progress code = Culture: Anaerobic) [facility] Stain Ofwlka4974-86-38 20:00:00 Test Item Value Reference Range Interpretation Comments Gram Stain Report Rare WBC's No Organisms (test code = Gram Seen Stain Report) [facility] Hospitallture: Aspirate/Body Fluid/Atzagn9209-66-32 20:00:00 Test Item Value Reference Range Interpretation Comments Culture: Aspirate/Body No Growth; Holding Fluid/Tissue (test code = Culture: Aspirate/Body Fluid/Tissue) [facility] CenterCulture: Arzqmzcaj5109-75-18 15:00:00 Test Item Value Reference Range Interpretation Comments Culture: Anaerobic No Anaerobes Isolated (test code = Culture: After 2 Days Anaerobic) [facility] CenterGram Stain Xmtvwz7078-05-79 15:00:00 Test Item Value Reference Range Interpretation Comments Gram Stain Report No Wbc'S Or Organisms (test code = Gram Seen Stain Report) [facility] CenterCulture: Aspirate/Body Fluid/Rmumae7422-99-16 15:00:00 Test Item Value Reference Range Interpretation Comments Culture: 48 Hour Report - No Aspirate/Body Growth, Holding Fluid/Tissue (test code = Culture: Aspirate/Body Fluid/Tissue) [facility]2019-04-01 10:50:00 Test Item Value Reference Range Interpretation Comments Calcium Lvl (test code = Calcium Lvl) 7.7 8.5-10.5 [facility]2019-04-01 10:50:00 Test Item Value Reference Range Interpretation Comments Potassium Lvl (test code = Potassium 3.6 3.5-5.1 Lvl) [facility]2019-04-01 10:50:00 Test Item Value Reference Range Interpretation Comments Chloride Lvl (test code = Chloride Lvl) 113 95-109 [facility]2019-04-01 10:50:00 Test Item Value Reference Range Interpretation Comments Sodium Lvl (test code = Sodium Lvl) 144 135-145 [facility]2019-04-01 10:50:00 Test Item Value Reference Range Interpretation Comments Creatinine Lvl (test code = Creatinine 0.86 0.50-1.40 Lvl) [facility]2019-04-01 10:50:00 Test Item Value Reference Range Interpretation Comments eGFR (test code = eGFR) 94 [facility]2019-04-01 10:50:00 Test Item Value Reference Range Interpretation Comments CO2 (test code = CO2) 22 24-32 [facility]2019-04-01 10:50:00 Test Item Value Reference Range Interpretation Comments Glucose Lvl (test code = Glucose Lvl) 89 70-99 [facility]2019-04-01 10:50:00 Test Item Value Reference Range Interpretation Comments BUN (test code = BUN) 10 7-22 [facility]2019-04-01 10:50:00 Test Item Value Reference Range Interpretation Comments AGAP (test code = AGAP) 12.6 10.0-20.0 [facility] SKXLJSQ6123-97-62 20:59:00 Test Item Value Reference Range Interpretation Comments BNP (test code = BNP) 454 [facility] CenterCARTAY[facility] TFUVVUY4906-60-05 20:59:00 Test Item Value Reference Range Interpretation Comments Troponin-I (test code = Troponin-I) no gt <=0.40 [facility] CVGDBUA4366-63-04 20:59:00 Test Item Value Reference Range Interpretation Comments Total CK (test code = Total CK) 38 12-191 [facility] HospitalYynakvgQURQPBDJHGXC0539-20-75 20:59:00 Test Item Value Reference Range Interpretation Comments AGAP (test code = AGAP) 9.7 10.0-20.0 [facility] HospitalWookewbVRYACBEPARNH2983-07-47 20:59:00 Test Item Value Reference Range Interpretation Comments B/C Ratio (test code = B/C Ratio) 11 1 6-25 [facility] HospitalPjandslDGOPHCAUXXFL1691-34-68 20:59:00 Test Item Value Reference Range Interpretation Comments A/G Ratio (test code = A/G Ratio) 0.6 1 0.7-1.6 [facility] HospitalLkxtlosQPLHKZTJZRWM4682-61-23 20:59:00 Test Item Value Reference Range Interpretation Comments Globulin (test code = Globulin) 4.2 2.7-4.2 [facility] HospitalAwbhpgrUCBQHGBAYLAN0333-65-50 20:59:00 Test Item Value Reference Range Interpretation Comments Albumin Lvl (test code = Albumin Lvl) 2.7 3.5-5.0 [facility]FpvzoahHRBPAOMCHBJO5197-56-11 20:59:00 Test Item Value Reference Range Interpretation Comments Glucose Lvl (test code = Glucose Lvl) 98 70-99 [facility] HospitalFurhcidJSFOAOVLNMFY0920-04-18 20:59:00 Test Item Value Reference Range Interpretation Comments CO2 (test code = CO2) 26 24-32 [facility] HospitalLqmmfgmPCZFJIATCVZU3175-37-00 20:59:00 Test Item Value Reference Range Interpretation Comments BUN (test code = BUN) 11 7-22 [facility] HospitalLkthrzfOWGQEELRHBYF1121-56-14 20:59:00 Test Item Value Reference Range Interpretation Comments eGFR (test code = eGFR) 82 [facility] HospitalJvbmcnwNBOMSRITJEYK2646-85-19 20:59:00 Test Item Value Reference Range Interpretation Comments AST (test code = AST) 6 <=37 [facility] HospitalIhafhiyMLMBWMPYZBBU8704-13-05 20:59:00 Test Item Value Reference Range Interpretation Comments ALT (test code = ALT) 13 <=65 [facility] HospitalHmmtcicDJBCNTTKKUXI6563-31-82 20:59:00 Test Item Value Reference Range Interpretation Comments Creatinine Lvl (test code = Creatinine 1.00 0.50-1.40 Lvl) [facility] HospitalIpkalreBZIIRTINEDCL0755-38-90 20:59:00 Test Item Value Reference Range Interpretation Comments Bili Total (test code = Bili Total) 0.1 0.2-1.3 [facility] HospitalBzovdmwORFITEETNPTW4147-60-04 20:59:00 Test Item Value Reference Range Interpretation Comments Total Protein (test code = Total 6.9 6.4-8.4 Protein) [facility] HospitalYjgpjvvVZETLCLWUUYA4659-23-74 20:59:00 Test Item Value Reference Range Interpretation Comments Calcium Lvl (test code = Calcium Lvl) 8.2 8.5-10.5 [facility] HospitalMkktqefRVPXYFGMEUVG1454-99-79 20:59:00 Test Item Value Reference Range Interpretation Comments Alk Phos (test code = Alk Phos) 122 39-136 [facility] HospitalYehxqruUJLVKNXWIQMH5520-25-11 20:59:00 Test Item Value Reference Range Interpretation Comments Sodium Lvl (test code = Sodium Lvl) 145 135-145 [facility] HospitalPlooraoXFRYYNFCUNQD1347-10-04 20:59:00 Test Item Value Reference Range Interpretation Comments Chloride Lvl (test code = Chloride Lvl) 113 95-109 [facility] HospitalTnibmwfTNRRDYFJYEFH5688-58-07 20:59:00 Test Item Value Reference Range Interpretation Comments Potassium Lvl (test code = Potassium 3.7 3.5-5.1 Lvl) [facility]DcpnfbrWXVPEOQJVA0721-74-57 20:59:00 Test Item Value Reference Range Interpretation Comments PT (test code = PT) 13.3 s 12.0-14.7 [facility] CenterXvzbbyaDBPNCFEDOJ0321-03-11 20:59:00 Test Item Value Reference Range Interpretation Comments INR (test code = INR) 1.03 1 0.85-1.17 [facility] CenterUyywznoUQMNHIFSGE0836-00-37 20:59:00 Test Item Value Reference Range Interpretation Comments PTT (test code = PTT) 31.9 s 22.9-35.8 [facility] CenterKzwjpwaVALZEKGZHR8905-04-47 20:59:00 Test Item Value Reference Range Interpretation Comments MPV (test code = MPV) 8.1 7.4-10.4 [facility] CenterAgjqfttILTNZSYLYI6221-45-34 20:59:00 Test Item Value Reference Range Interpretation Comments MCHC (test code = MCHC) 30.8 32.0-36.0 [facility] CenterIjlioeqZISWICLXIP3871-27-26 20:59:00 Test Item Value Reference Range Interpretation Comments MCV (test code = MCV) 81.3 80.0-94.0 [facility] CenterDughocxJPASPKCZOF6583-07-94 20:59:00 Test Item Value Reference Range Interpretation Comments MCH (test code = MCH) 25.1 pg 27.0-31.0 [facility] CenterGgzlabzYXDNQZAYCB2460-35-69 20:59:00 Test Item Value Reference Range Interpretation Comments RDW (test code = RDW) 18.6 11.5-14.5 [facility] CenterRzhrdgsJCYVJVPXQZ6280-23-74 20:59:00 Test Item Value Reference Range Interpretation Comments RBC (test code = RBC) 3.52 4.70-6.10 [facility] CenterOvalsufXZWSYZKVEN0164-55-08 20:59:00 Test Item Value Reference Range Interpretation Comments Hgb (test code = Hgb) 8.8 14.0-18.0 [facility] CenterWzrbdbuDQEXGOLXPN3239-62-23 20:59:00 Test Item Value Reference Range Interpretation Comments WBC (test code = WBC) 6.0 3.7-10.4 [facility] CenterFiicpoaIRNBJBBVXO8934-74-76 20:59:00 Test Item Value Reference Range Interpretation Comments Hct (test code = Hct) 28.6 42.0-54.0 [facility] CenterFobjlouZQBGWSSQUD5646-41-60 20:59:00 Test Item Value Reference Range Interpretation Comments Platelet (test code = Platelet) 390 133-450 [facility] CenterItkjsxvXLTNHXRHUZ5893-53-26 20:59:00 Test Item Value Reference Range Interpretation Comments Monocytes (test code = Monocytes) 10.1 2.0-12.0 [facility] CenterNmmhljlAEDILBYQGY2772-14-74 20:59:00 Test Item Value Reference Range Interpretation Comments Lymphocytes (test code = Lymphocytes) 16.4 20.0-40.0 [facility] CenterFdkumtfRYKZRRTDCX9910-38-81 20:59:00 Test Item Value Reference Range Interpretation Comments Anisocyte (test code = 1+ *ABN*(06/02/18 Anisocyte) 3:59 PM) [facility] CenterMkgvfgsUVUTXCNJHK6092-44-12 20:59:00 Test Item Value Reference Range Interpretation Comments Eosinophils # (test code = Eosinophils 0.2 <=0.5 #) [facility] CenterYbcpkqdLUTMPZXJXI1159-33-06 20:59:00 Test Item Value Reference Range Interpretation Comments Neutrophils # (test code = Neutrophils 4.1 1.5-8.1 #) [facility] CenterHqgmagjHWJBCDNFXM2679-74-34 20:59:00 Test Item Value Reference Range Interpretation Comments Basophils (test code = Basophils) 0.8 <=1.0 [facility] CenterBdumxcoDSFOXVHBTP8381-93-15 20:59:00 Test Item Value Reference Range Interpretation Comments Eosinophils (test code = Eosinophils) 4.0 <=4.0 [facility] CenterQglukgvQSFZTLPYUC4198-41-39 20:59:00 Test Item Value Reference Range Interpretation Comments Segs (test code = Segs) 68.7 45.0-75.0 [facility] CenterImheldqXJTQIOLCTP1463-45-34 20:59:00 Test Item Value Reference Range Interpretation Comments Hypochrom (test code = 2+ (06/02/18 3:59 PM) Hypochrom) [facility] CenterBrnfkkgBBTQBUIVSH1462-07-17 20:59:00 Test Item Value Reference Range Interpretation Comments Large Plt (test code Moderate *ABN*(06/02/18 = Large Plt) 3:59 PM) [facility] CenterQqwhslkHPKOSBPFAM7752-73-16 20:59:00 Test Item Value Reference Range Interpretation Comments Lymphocytes # (test code = Lymphocytes 1.0 1.0-5.5 #) [facility] CenterGzevmtyWBFWPSAETN8887-54-23 20:59:00 Test Item Value Reference Range Interpretation Comments Monocytes # (test code = Monocytes #) 0.6 <=0.8 [facility] CenterYwjbdvbRELLRTTYPR4072-26-71 14:40:00 Test Item Value Reference Range Interpretation Comments Platelet (test code = Platelet) 233 133-450 [facility] CenterVjtjhaoEFAVSTUUOP9702-55-28 14:40:00 Test Item Value Reference Range Interpretation Comments MPV (test code = MPV) 8.3 7.4-10.4 [facility] CenterGzgfgvmWLTWWPLRGG9658-44-27 14:40:00 Test Item Value Reference Range Interpretation Comments MCHC (test code = MCHC) 32.2 32.0-36.0 [facility] CenterUbaumjoTRNEUKGIXQ5579-43-52 14:40:00 Test Item Value Reference Range Interpretation Comments RDW (test code = RDW) 19.0 11.5-14.5 [facility] CenterRbyafwhPDTPGJWEWI2141-17-81 14:40:00 Test Item Value Reference Range Interpretation Comments Hgb (test code = Hgb) 8.8 14.0-18.0 [facility] CenterEsfqsebYJERBBRMIF7132-12-32 14:40:00 Test Item Value Reference Range Interpretation Comments RBC (test code = RBC) 3.40 4.70-6.10 [facility] CenterFrxpflyIQEPFSQSUH9145-68-58 14:40:00 Test Item Value Reference Range Interpretation Comments MCV (test code = MCV) 80.1 80.0-94.0 [facility] CenterLmuptteNBUWQDKDWO9370-80-26 14:40:00 Test Item Value Reference Range Interpretation Comments MCH (test code = MCH) 25.8 pg 27.0-31.0 [facility] CenterZfylbrgEULXGGVCLR0519-69-85 14:40:00 Test Item Value Reference Range Interpretation Comments Hct (test code = Hct) 27.3 42.0-54.0 [facility] CenterPyjxphwBJBLBNUTMV9150-06-73 14:40:00 Test Item Value Reference Range Interpretation Comments WBC (test code = WBC) 7.3 3.7-10.4 [facility] CenterUdgvefuPLNSZXDLZK0187-30-14 14:40:00 Test Item Value Reference Range Interpretation Comments Basophils (test code = Basophils) 1.3 <=1.0 [facility] CenterLfrhovbDDIHRDVJCK3097-89-71 14:40:00 Test Item Value Reference Range Interpretation Comments Neutrophils # (test code = Neutrophils 4.6 1.5-8.1 #) [facility] CenterSokhkvyFGEFYLIGII9553-72-30 14:40:00 Test Item Value Reference Range Interpretation Comments Eosinophils (test code = Eosinophils) 7.5 <=4.0 [facility] CenterKoifdebPLYACLOGLM7917-52-06 14:40:00 Test Item Value Reference Range Interpretation Comments Monocytes (test code = Monocytes) 8.8 2.0-12.0 [facility] CenterVgojtwxVPZMMMDZSX8729-84-76 14:40:00 Test Item Value Reference Range Interpretation Comments Segs (test code = Segs) 63.4 45.0-75.0 [facility] CenterFcyrytcRDEMVTORWD8304-73-21 14:40:00 Test Item Value Reference Range Interpretation Comments Lymphocytes (test code = Lymphocytes) 19.0 20.0-40.0 [facility] CenterAwrtoukZOAHCRNSBM3614-91-56 14:40:00 Test Item Value Reference Range Interpretation Comments Eosinophils # (test code = Eosinophils 0.5 <=0.5 #) [facility] CenterHaxuttqBGEJVCASMF4647-08-39 14:40:00 Test Item Value Reference Range Interpretation Comments Basophils # (test code = Basophils #) 0.1 <=0.2 [place] 523939-03-19 14:40:00 Test Item Value Reference Range Interpretation Comments Monocytes # (test code = Monocytes #) 0.6 <=0.8 [place] 523939-03-19 14:40:00 Test Item Value Reference Range Interpretation Comments Lymphocytes # (test code = Lymphocytes 1.4 1.0-5.5 #) [facility]2019-03-19 11:30:00 Test Item Value Reference Range Interpretation Comments Calcium Lvl (test code = Calcium Lvl) 8.3 8.5-10.5 [facility]2019-03-19 11:30:00 Test Item Value Reference Range Interpretation Comments Potassium Lvl (test code = Potassium 4.3 3.5-5.1 Lvl) [facility]2019-03-19 11:30:00 Test Item Value Reference Range Interpretation Comments Sodium Lvl (test code = Sodium Lvl) 143 135-145 [facility]2019-03-19 11:30:00 Test Item Value Reference Range Interpretation Comments Chloride Lvl (test code = Chloride Lvl) 108 95-109 [facility]2019-03-19 11:30:00 Test Item Value Reference Range Interpretation Comments eGFR (test code = eGFR) 105 [facility]2019-03-19 11:30:00 Test Item Value Reference Range Interpretation Comments Creatinine Lvl (test code = Creatinine 0.66 0.50-1.40 Lvl) [facility]2019-03-19 11:30:00 Test Item Value Reference Range Interpretation Comments CO2 (test code = CO2) 29 24-32 [facility]2019-03-19 11:30:00 Test Item Value Reference Range Interpretation Comments BUN (test code = BUN) 14 7-22 [facility]2019-03-19 11:30:00 Test Item Value Reference Range Interpretation Comments Glucose Lvl (test code = Glucose Lvl) 79 70-99 [facility] V[facility]YQ5519[facility] 11:30:00 Test Item Value Reference Range Interpretation Comments AGAP (test code = AGAP) 10.3 10.0-20.0 [facility] HrssrhbMBRKXBXOSZ6433-42-84 11:30:00 Test Item Value Reference Range Interpretation Comments Vanco Tr TND (test code = Vanco Tr TND) unk [facility]AjjfrpmOXXCTMVXHC4773-62-06 11:30:00 Test Item Value Reference Range Interpretation Comments Vanco Tr (test code = Vanco Tr) 12.8 [facility]annCARD[facility]AC IMVVLZE5439-29-45 17:35:00 Test Item Value Reference Range Interpretation Comments Troponin-I (test code = Troponin-I) no gt <=0.40 [facility]annC[facility]AC ZMASJHA8967-32-18 17:35:00 Test Item Value Reference Range Interpretation Comments Total CK (test code = Total CK) 33 12-191 [facility]annC[facility] FEDEAPP6088-79-22 12:45:00 Test Item Value Reference Range Interpretation Comments Troponin-I (test code = Troponin-I) no gt <=0.40 [facility] HBRQKXL4801-60-52 12:45:00 Test Item Value Reference Range Interpretation Comments Total CK (test code = Total CK) 33 12-191 [facility] HospitalJdvrzszANABKDHUNUSJ1187-52-12 06:11:00 Test Item Value Reference Range Interpretation Comments AGAP (test code = AGAP) 9.1 10.0-20.0 [facility] QyyawgyZPOMSTDHAMMC4894-45-73 06:11:00 Test Item Value Reference Range Interpretation Comments Sodium Lvl (test code = Sodium Lvl) 144 135-145 [facility] BbrpogiORNHREFVLPJS3863-57-20 06:11:00 Test Item Value Reference Range Interpretation Comments Chloride Lvl (test code = Chloride Lvl) 108 95-109 [facility] SpcezjuCBNBXACNEJWA5208-82-76 06:11:00 Test Item Value Reference Range Interpretation Comments Potassium Lvl (test code = Potassium 4.1 3.5-5.1 Lvl) [facility]VhjbtflKHJISXOGCGZL6773-28-40 06:11:00 Test Item Value Reference Range Interpretation Comments CO2 (test code = CO2) 31 24-32 [facility] HospitalJuevudvWRPNIFMJRGXD6186-04-70 06:11:00 Test Item Value Reference Range Interpretation Comments BUN (test code = BUN) 15 7-22 [facility] HospitalIgbqjnaPKYZKVFDZZBD3969-23-67 06:11:00 Test Item Value Reference Range Interpretation Comments Glucose Lvl (test code = Glucose Lvl) 96 70-99 [facility] HospitalDwgnpnwQWEXQIIQORKP2456-93-52 06:11:00 Test Item Value Reference Range Interpretation Comments Creatinine Lvl (test code = Creatinine 0.72 0.50-1.40 Lvl) [facility] HospitalTvuzqvgLLRNEEYIJLLP6672-14-09 06:11:00 Test Item Value Reference Range Interpretation Comments eGFR (test code = eGFR) 102 [facility] HospitalXscejsyGDTVTMNLTKKG3031-40-70 06:11:00 Test Item Value Reference Range Interpretation Comments Calcium Lvl (test code = Calcium Lvl) 8.3 8.5-10.5 [facility] CenterAceyynqRFCMBLPIEH6561-73-19 06:11:00 Test Item Value Reference Range Interpretation Comments MPV (test code = MPV) 8.0 7.4-10.4 [facility] CenterOzmbcxmXRNRWROOUB8320-79-50 06:11:00 Test Item Value Reference Range Interpretation Comments Platelet (test code = Platelet) 217 133-450 [facility] CenterPmctdqjTLGSMCYRXO8196-93-25 06:11:00 Test Item Value Reference Range Interpretation Comments RDW (test code = RDW) 18.6 11.5-14.5 [facility] CenterDfhdxuoDSRVKMBZGV7755-41-95 06:11:00 Test Item Value Reference Range Interpretation Comments MCH (test code = MCH) 26.0 pg 27.0-31.0 [facility] CenterLjavbriAPXPNPPHZB4506-36-01 06:11:00 Test Item Value Reference Range Interpretation Comments MCV (test code = MCV) 81.5 80.0-94.0 [facility] CenterXibwwbxMTHJMOYOTQ4160-94-80 06:11:00 Test Item Value Reference Range Interpretation Comments MCHC (test code = MCHC) 31.9 32.0-36.0 [facility] CenterRkrvnpxMDVFJWLLWB6802-79-20 06:11:00 Test Item Value Reference Range Interpretation Comments RBC (test code = RBC) 3.16 4.70-6.10 [facility] CenterTbebtxkEVNAQFUFGN1876-78-45 06:11:00 Test Item Value Reference Range Interpretation Comments Hct (test code = Hct) 25.8 42.0-54.0 [facility] CenterPsznmoaPOOZRCCFQD8358-98-00 06:11:00 Test Item Value Reference Range Interpretation Comments Hgb (test code = Hgb) 8.2 14.0-18.0 [facility] CenterZbjqhttPNLEIAQCNW5905-57-58 06:11:00 Test Item Value Reference Range Interpretation Comments WBC (test code = WBC) 7.5 3.7-10.4 [facility] CenterKaboysbGIEUMSTVGG0996-63-81 06:11:00 Test Item Value Reference Range Interpretation Comments Monocytes # (test code = Monocytes #) 0.7 <=0.8 [facility] CenterQbgzqlpERYIIWAMLP3631-35-37 06:11:00 Test Item Value Reference Range Interpretation Comments Basophils # (test code = Basophils #) 0.1 <=0.2 [facility] CenterKzyltbsQOQVRZLFZY8077-17-75 06:11:00 Test Item Value Reference Range Interpretation Comments Eosinophils # (test code = Eosinophils 0.4 <=0.5 #) [facility] CenterHxqayvyPKUZPGQNIC9868-20-94 06:11:00 Test Item Value Reference Range Interpretation Comments Lymphocytes # (test code = Lymphocytes 1.6 1.0-5.5 #) [facility] CenterLdkqsowFBBNTMITAY4402-13-16 06:11:00 Test Item Value Reference Range Interpretation Comments Neutrophils # (test code = Neutrophils 4.8 1.5-8.1 #) [facility] CenterPeufheiSXYPXUHBTZ4229-41-09 06:11:00 Test Item Value Reference Range Interpretation Comments Basophils (test code = Basophils) 1.1 <=1.0 [facility] CenterFftmctuPAWUPHOTZA5869-73-79 06:11:00 Test Item Value Reference Range Interpretation Comments Eosinophils (test code = Eosinophils) 5.2 <=4.0 [facility] CenterUbgwvqcTCZXUSNLNB1475-16-21 06:11:00 Test Item Value Reference Range Interpretation Comments Monocytes (test code = Monocytes) 9.1 2.0-12.0 [facility] CenterKabkbewBALSETYNSS9785-17-46 06:11:00 Test Item Value Reference Range Interpretation Comments Lymphocytes (test code = Lymphocytes) 21.2 20.0-40.0 [facility] CenterVlfcyvwJOYJRZKVZW1113-26-51 06:11:00 Test Item Value Reference Range Interpretation Comments Segs (test code = Segs) 63.4 45.0-75.0 [place] [id number] 06:11:00 Test Item Value Reference Range Interpretation Comments Vanco Tr TND (test code = Vanco Tr 0030 1 TND) [place] 09570019-03-18 06:11:00 Test Item Value Reference Range Interpretation Comments Vanco Tr (test code = Vanco Tr) 7.3 [facility]2019-03-17 10:50:00 Test Item Value Reference Range Interpretation Comments Magnesium Lvl (test code = Magnesium 1.8 1.8-2.4 Lvl) [facility]2019-03-17 10:50:00 Test Item Value Reference Range Interpretation Comments Phosphorus (test code = Phosphorus) 3.3 2.5-4.5 [facility] HospitalLksskbxXIAOEPHJPNRT7850-77-42 10:50:00 Test Item Value Reference Range Interpretation Comments AGAP (test code = AGAP) 9.9 10.0-20.0 [facility] HospitalJybwvkrHXTBSXKJAMAL9992-98-63 10:50:00 Test Item Value Reference Range Interpretation Comments Calcium Lvl (test code = Calcium Lvl) 7.9 8.5-10.5 [facility] HospitalPourmpiDBSCIRCFBEHK7974-53-06 10:50:00 Test Item Value Reference Range Interpretation Comments eGFR (test code = eGFR) 101 [facility] HospitalVdaophaPDCOFBWTYHBL2583-53-20 10:50:00 Test Item Value Reference Range Interpretation Comments Creatinine Lvl (test code = Creatinine 0.72 0.50-1.40 Lvl) [facility] HospitalKsoiljxXYKKSUGJSKYR9557-67-93 10:50:00 Test Item Value Reference Range Interpretation Comments Sodium Lvl (test code = Sodium Lvl) 143 135-145 [facility] HospitalGvpflevLADUUWIBURIX4059-96-92 10:50:00 Test Item Value Reference Range Interpretation Comments Potassium Lvl (test code = Potassium 3.9 3.5-5.1 Lvl) [facility] HospitalYivstjcLGLGBYTVVAFL7272-12-73 10:50:00 Test Item Value Reference Range Interpretation Comments Chloride Lvl (test code = Chloride Lvl) 109 95-109 [facility] HospitalSlnqawbBMSTQYZRUDYS9421-03-10 10:50:00 Test Item Value Reference Range Interpretation Comments BUN (test code = BUN) 15 7-22 [facility] HospitalIncptshFKZXOYLDMBRM4423-66-63 10:50:00 Test Item Value Reference Range Interpretation Comments CO2 (test code = CO2) 28 24-32 [facility] HospitalNljetfnTUEDEJQGGFQN9130-59-64 10:50:00 Test Item Value Reference Range Interpretation Comments Glucose Lvl (test code = Glucose Lvl) 121 70-99 [facility] CenterJaqgbvwSQSWBUZRME3981-03-91 10:50:00 Test Item Value Reference Range Interpretation Comments Basophils # (test code = Basophils #) 0.1 <=0.2 [facility] CenterDbhgvnhCSEBZGNWKQ6480-96-75 10:50:00 Test Item Value Reference Range Interpretation Comments Neutrophils # (test code = Neutrophils 4.6 1.5-8.1 #) [facility] CenterKjzlorgOZLYAXGBJL8578-84-47 10:50:00 Test Item Value Reference Range Interpretation Comments Lymphocytes # (test code = Lymphocytes 1.5 1.0-5.5 #) [facility] CenterXgajhomTEIWJHKPKO2149-15-21 10:50:00 Test Item Value Reference Range Interpretation Comments Lymphocytes (test code = Lymphocytes) 22.0 20.0-40.0 [facility] CenterSpjmydtUFDIJMBNKI9908-51-05 10:50:00 Test Item Value Reference Range Interpretation Comments Monocytes (test code = Monocytes) 6.9 2.0-12.0 [facility] CenterPoydcxwASPAMILGLR8627-08-78 10:50:00 Test Item Value Reference Range Interpretation Comments Basophils (test code = Basophils) 0.7 <=1.0 [facility] CenterAzfesnqINSKWBMYQU5669-42-71 10:50:00 Test Item Value Reference Range Interpretation Comments Eosinophils (test code = Eosinophils) 4.5 <=4.0 [facility] CenterGpfvmnnOGILMONWFB4552-00-68 10:50:00 Test Item Value Reference Range Interpretation Comments Monocytes # (test code = Monocytes #) 0.5 <=0.8 [facility] CenterLsjfmuhZLCXMRTLMV9503-81-96 10:50:00 Test Item Value Reference Range Interpretation Comments Eosinophils # (test code = Eosinophils 0.3 <=0.5 #) [facility] CenterZpbrydeYPTQQHKZBW8181-94-53 10:50:00 Test Item Value Reference Range Interpretation Comments Segs (test code = Segs) 65.9 45.0-75.0 [facility] CenterRyjmevrCQXTODOHTQ8779-77-12 10:50:00 Test Item Value Reference Range Interpretation Comments MCH (test code = MCH) 26.3 pg 27.0-31.0 [facility] CenterAtimglrZKVQRLTXEL7453-67-71 10:50:00 Test Item Value Reference Range Interpretation Comments MCHC (test code = MCHC) 32.2 32.0-36.0 [facility] CenterElxzcpvVARCUANWYS8771-80-46 10:50:00 Test Item Value Reference Range Interpretation Comments Hct (test code = Hct) 24.2 42.0-54.0 [facility] CenterPhgqsjgWOUGLQRLDK3262-69-68 10:50:00 Test Item Value Reference Range Interpretation Comments MCV (test code = MCV) 81.7 80.0-94.0 [facility] CenterJbmctjeKEIHJTTTUH3738-11-89 10:50:00 Test Item Value Reference Range Interpretation Comments Platelet (test code = Platelet) 200 133-450 [facility] CenterVbsljczLHTWGNICJL8388-34-43 10:50:00 Test Item Value Reference Range Interpretation Comments RDW (test code = RDW) 18.4 11.5-14.5 [facility] CenterKurznijPRIGSXLYVG3278-04-54 10:50:00 Test Item Value Reference Range Interpretation Comments MPV (test code = MPV) 8.2 7.4-10.4 [facility] CenterBzfeqwcRJGZMKIUIT1531-42-25 10:50:00 Test Item Value Reference Range Interpretation Comments RBC (test code = RBC) 2.96 4.70-6.10 [facility] CenterErmedorXOWQVWKBMY7960-81-96 10:50:00 Test Item Value Reference Range Interpretation Comments Hgb (test code = Hgb) 7.8 14.0-18.0 [facility] CenterYbnqgefXVKEHQLVRK5024-67-79 10:50:00 Test Item Value Reference Range Interpretation Comments WBC (test code = WBC) 7.0 3.7-10.4 [facility] CenterJpswoklVJBMTNJTCU9941-97-61 10:50:00 Test Item Value Reference Range Interpretation Comments Vanco Tr (test code = Vanco Tr) 21.8 [facility] CenterBknevxtJZOXZYITPF7867-98-12 10:50:00 Test Item Value Reference Range Interpretation Comments Vanco Tr TND (test code = Vanco Tr TND) unk [facility]2019-03-16 09:08:00 Test Item Value Reference Range Interpretation Comments Bili Total (test code = Bili Total) 0.6 0.2-1.3 [facility] HospitalViewCastATRIUM [facility] B[facility] CENTERBAXCO4464-56-20 09:08:00 Test Item Value Reference Range Interpretation Comments Total Protein (test code = Total 6.5 6.4-8.4 Protein) [facility]2019-03-16 09:08:00 Test Item Value Reference Range Interpretation Comments Alk Phos (test code = Alk Phos) 71 39-136 [facility]2019-03-16 09:08:00 Test Item Value Reference Range Interpretation Comments ALT (test code = ALT) 12 <=65 [facility] [facility] [id number] 09:08:00 Test Item Value Reference Range Interpretation Comments AST (test code = AST) 12 <=37 [facility] [id number] 09:08:00 Test Item Value Reference Range Interpretation Comments Albumin Lvl (test code = Albumin Lvl) 2.5 3.5-5.0 [facility] [id number] 09:08:00 Test Item Value Reference Range Interpretation Comments A/G Ratio (test code = A/G Ratio) 0.6 1 0.7-1.6 [facility]2019-03-16 09:08:00 Test Item Value Reference Range Interpretation Comments Globulin (test code = Globulin) 4.0 2.7-4.2 [facility] [id number] 09:08:00 Test Item Value Reference Range Interpretation Comments B/C Ratio (test code = B/C Ratio) 19 1 6-25 [facility]QfqsjjkMZUTGEDDHI4004-05-31 20:56:00 Test Item Value Reference Range Interpretation Comments INR (test code = INR) 0.89 1 0.85-1.17 [facility] CenterMoiiwnxATOJHITWCY4916-14-00 20:56:00 Test Item Value Reference Range Interpretation Comments PT (test code = PT) 11.9 s 12.0-14.7 [facility] [employer] [id number] 15:16:00 Test Item Value Reference Range Interpretation Comments RBC product (test code Product available = RBC product) 1(05/17/18 10:16 AM) [facility] [employer] BANK [id number] 13:26:00 Test Item Value Reference Range Interpretation Comments Antibody Scrn (test Negative (05/17/18 8:26 code = Antibody Scrn) AM) [facility] BANK [id number] 13:26:00 Test Item Value Reference Range Interpretation Comments ABO/Rh (test code = ABO/Rh) A POS [facility]2019-03-15 09:48:00 Test Item Value Reference Range Interpretation Comments Phosphorus (test code = Phosphorus) 3.2 2.5-4.5 [facility]2019-03-15 09:48:00 Test Item Value Reference Range Interpretation Comments Bili Total (test code = Bili Total) 0.7 0.2-1.3 [facility]2019-03-15 09:48:00 Test Item Value Reference Range Interpretation Comments Total Protein (test code = Total 5.9 6.4-8.4 Protein) [facility]2019-03-15 09:48:00 Test Item Value Reference Range Interpretation Comments Albumin Lvl (test code = Albumin Lvl) 2.5 3.5-5.0 [facility]2019-03-15 09:48:00 Test Item Value Reference Range Interpretation Comments Alk Phos (test code = Alk Phos) 80 39-136 [facility]2019-03-15 09:48:00 Test Item Value Reference Range Interpretation Comments ALT (test code = ALT) 12 <=65 [facility]2019-03-15 09:48:00 Test Item Value Reference Range Interpretation Comments AST (test code = AST) 8 <=37 [facility]2019-03-15 09:48:00 Test Item Value Reference Range Interpretation Comments A/G Ratio (test code = A/G Ratio) 0.7 1 0.7-1.6 [facility]2019-03-15 09:48:00 Test Item Value Reference Range Interpretation Comments Globulin (test code = Globulin) 3.4 2.7-4.2 [facility]2019-03-15 09:48:00 Test Item Value Reference Range Interpretation Comments B/C Ratio (test code = B/C Ratio) 14 1 6-25 [facility]2019-03-15 09:48:00 Test Item Value Reference Range Interpretation Comments Magnesium Lvl (test code = Magnesium 1.8 1.8-2.4 Lvl) [facility] CenterTyztnioMYKPOEIFEJ2734-19-53 09:48:00 Test Item Value Reference Range Interpretation Comments INR (test code = INR) 1.15 1 0.85-1.17 [facility] CenterYdsiehgTHPMNQDROW3927-57-82 09:48:00 Test Item Value Reference Range Interpretation Comments PT (test code = PT) 14.5 s 12.0-14.7 [facility] CenterSzpnrtjTGESORZTDW0826-84-73 09:48:00 Test Item Value Reference Range Interpretation Comments PTT (test code = PTT) 43.8 s 22.9-35.8 [facility]2019-03-14 10:21:00 Test Item Value Reference Range Interpretation Comments AST (test code = AST) 6 <=37 [facility]2019-03-14 10:21:00 Test Item Value Reference Range Interpretation Comments A/G Ratio (test code = A/G Ratio) 0.7 1 0.7-1.6 [facility]2019-03-14 10:21:00 Test Item Value Reference Range Interpretation Comments Total Protein (test code = Total 5.8 6.4-8.4 Protein) [facility]2019-03-14 10:21:00 Test Item Value Reference Range Interpretation Comments Globulin (test code = Globulin) 3.4 2.7-4.2 [facility]2019-03-14 10:21:00 Test Item Value Reference Range Interpretation Comments B/C Ratio (test code = B/C Ratio) 15 1 6-25 [facility]2019-03-14 10:21:00 Test Item Value Reference Range Interpretation Comments ALT (test code = ALT) 11 <=65 [facility]2019-03-14 10:21:00 Test Item Value Reference Range Interpretation Comments Bili Total (test code = Bili Total) 1.6 0.2-1.3 [facility]2019-03-14 10:21:00 Test Item Value Reference Range Interpretation Comments Albumin Lvl (test code = Albumin Lvl) 2.4 3.5-5.0 [facility]2019-03-14 10:21:00 Test Item Value Reference Range Interpretation Comments Alk Phos (test code = Alk Phos) 75 39-136 [facility]2019-03-14 10:21:00 Test Item Value Reference Range Interpretation Comments Magnesium Lvl (test code = Magnesium 1.8 1.8-2.4 Lvl) [facility] CenterYadwire Technology [id number] 10:21:00 Test Item Value Reference Range Interpretation Comments Phosphorus (test code = Phosphorus) 3.0 2.5-4.5 [facility] CenterPlvsbsqMQZHPHBWVQ0532-10-50 10:21:00 Test Item Value Reference Range Interpretation Comments Vanco Lvl (test code = Vanco Lvl) 16.6 [facility] [id number] 08:07:00 Test Item Value Reference Range Interpretation Comments Ca Norm WB (test code = Ca Norm WB) 1.15 1.05-1.25 [facility]2019-03-13 08:07:00 Test Item Value Reference Range Interpretation Comments Ca Ion WB (test code = Ca Ion WB) 1.15 1.05-1.25 [facility]2019-03-12 08:41:00 Test Item Value Reference Range Interpretation Comments Ca Norm WB (test code = Ca Norm WB) 1.11 1.05-1.25 [facility]2019-03-12 08:41:00 Test Item Value Reference Range Interpretation Comments Ca Ion WB (test code = Ca Ion WB) 1.09 1.05-1.25 [facility] CenterPicsaStock [facility] [id number] 04:19:00 Test Item Value Reference Range Interpretation Comments RBC product (test code Product available = RBC product) 2(05/13/18 11:19 PM) [facility] [employer] [facility] [id number] 02:42:00 Test Item Value Reference Range Interpretation Comments RBC product (test code Product available = RBC product) 3(05/13/18 9:42 PM) [facility] CenterYadwire Technology [id number] 01:42:00 Test Item Value Reference Range Interpretation Comments Lactic Acid Lvl (test code = Lactic 0.9 0.5-2.2 Acid Lvl) [facility] CenterIpkiurbKOOGGDFVNQ1579-45-66 01:42:00 Test Item Value Reference Range Interpretation Comments PT (test code = PT) 13.9 s 12.0-14.7 [facility] CenterByzdgyrKXBHAENJFY7687-33-36 01:42:00 Test Item Value Reference Range Interpretation Comments INR (test code = INR) 1.09 1 0.85-1.17 [facility] CenterAdrskfmBZSXHZHQMZ7101-92-64 01:42:00 Test Item Value Reference Range Interpretation Comments PTT (test code = PTT) 29.8 s 22.9-35.8 [facility]: [id number] 13:11:00 Test Item Value Reference Range Interpretation Comments Culture: Anaerobic No Anaerobes Isolated (test code = Culture: Anaerobic) [facility] CenterGram Stain Rfypxw6065-97-07 13:11:00 Test Item Value Reference Range Interpretation Comments Gram Stain Report No Wbc'S Or Organisms (test code = Gram Seen Stain Report) [facility] Hospitallture: Aspirate/Body Fluid/Puivnu2228-41-06 13:11:00 Test Item Value Reference Range Interpretation Comments Culture: Aspirate/Body Fluid/Tissue No Growth (test code = Culture: Aspirate/Body Fluid/Tissue) [facility] CenterSdudltjWIQUURDPFK0279-59-85 10:03:00 Test Item Value Reference Range Interpretation Comments Sed Rate (test code = Sed Rate) 33 <=15 [facility] CenterFvporbjIVGVRGAWWT6216-69-62 10:03:00 Test Item Value Reference Range Interpretation Comments PTT (test code = PTT) 32.6 s 22.9-35.8 [facility] CenterFsegctsBPBAVRXDIU1734-35-28 10:03:00 Test Item Value Reference Range Interpretation Comments C-REACTIVE PROTEIN (test code = 12.4 C-REACTIVE PROTEIN) [facility] [id number] 01:00:00 Test Item Value Reference Range Interpretation Comments Antibody Scrn (test Negative (05/12/18 8:00 code = Antibody Scrn) PM) [facility] CenterHearsay.it [id number] 01:00:00 Test Item Value Reference Range Interpretation Comments ABO/Rh (test code = ABO/Rh) A POS [facility] [employer] [id number] 09:58:00 Test Item Value Reference Range Interpretation Comments Bili Direct (test code = Bili Direct) no gt <=0.3 [facility] [id number] 09:58:00 Test Item Value Reference Range Interpretation Comments Bili Indirect (test code Unable to Calculate <=1.0 = Bili Indirect) [facility] CenterCthwkmbLRMEWLVNIQ6958-76-65 09:58:00 Test Item Value Reference Range Interpretation Comments Sed Rate (test code = Sed Rate) 30 <=15 [facility] CenterMdmgxxcZQAYCMPYFB1577-01-78 09:58:00 Test Item Value Reference Range Interpretation Comments Microcyte (test code = 1+ *ABN*(05/12/18 Microcyte) 4:58 AM) [facility] CenterAniljfzINQXILUFWK0942-72-84 09:58:00 Test Item Value Reference Range Interpretation Comments C-REACTIVE PROTEIN (test code = 9.8 C-REACTIVE PROTEIN) [facility] CenterCHEM [id number] 10:50:00 Test Item Value Reference Range Interpretation Comments Bili Indirect (test code Unable to Calculate <=1.0 = Bili Indirect) [facility] [id number] 10:50:00 Test Item Value Reference Range Interpretation Comments Bili Direct (test code = Bili Direct) no gt <=0.3 [facility] CenterGfbknhiETRHOWYEMS1141-28-27 10:50:00 Test Item Value Reference Range Interpretation Comments Sed Rate (test code = Sed Rate) 34 <=15 [facility] CenterUdkyahcQTTILKIWJV6177-81-46 10:50:00 Test Item Value Reference Range Interpretation Comments Microcyte (test code = 1+ *ABN*(05/11/18 4:50 Microcyte) AM) [facility] CenterIjfjbqgOOXEVYTCMY5040-19-34 10:50:00 Test Item Value Reference Range Interpretation Comments C-REACTIVE PROTEIN (test code = 8.7 C-REACTIVE PROTEIN) [facility] HospitalannMEROPENEM:SUSC:PT:ISOLATE:ORDQN:[id number] 23:28:00 Test Item Value Reference Range Interpretation Comments Gram Stain Report Rare WBC's No Organisms (test code = Gram Seen Stain Report) [facility] HospitalannMEROPENEM:SUSC:PT:ISOLATE:ORDQN:[id number] 23:28:00 Test Item Value Reference Range Interpretation Comments Culture: Growth In Subculture Broth Wound/Abscess Only : Staphylococcus w/Gram Stain (test Species, Not S. aureus code = Culture: Wound/Abscess w/Gram Stain) [facility]annMEROPENEM:SUSC:PT:ISOLATE:ORDQN:[id number] 23:28:00 Test Item Value Reference Range Interpretation Comments Staphylococcus Species, Staphylococcus Not S. aureus (test Species, Not S. aureus code = Staphylococcus Species, Not S. aureus) [facility]2019-03-08 17:06:00 Test Item Value Reference Range Interpretation Comments Procalcitonin Lvl (test code = no gt <=0.10 Procalcitonin Lvl) [facility] CenterBdzkbijCOUTPKJZWT8801-91-39 09:26:00 Test Item Value Reference Range Interpretation Comments Microcyte (test code = 1+ *ABN*(05/10/18 3:26 Microcyte) AM) [facility] CenterBldhldvULXLQZYYEW6508-46-39 20:34:00 Test Item Value Reference Range Interpretation Comments Plt Morph (test code = Normal (05/09/18 2:34 PM) Plt Morph) [facility] CenterCARDIAC [id number] 10:47:00 Test Item Value Reference Range Interpretation Comments BNP (test code = BNP) 288 [facility]2018-12-28 10:47:00 Test Item Value Reference Range Interpretation Comments Phosphorus (test code = Phosphorus) 3.3 2.5-4.5 [facility]2018-12-28 10:47:00 Test Item Value Reference Range Interpretation Comments Magnesium Lvl (test code = Magnesium 2.2 1.8-2.4 Lvl) [facility]2018-12-28 10:47:00 Test Item Value Reference Range Interpretation Comments Albumin Lvl (test code = Albumin Lvl) 2.3 3.5-5.0 [facility]2018-12-28 10:47:00 Test Item Value Reference Range Interpretation Comments Creatinine Lvl (test code = Creatinine 0.81 0.50-1.40 Lvl) [facility]2018-12-28 10:47:00 Test Item Value Reference Range Interpretation Comments ALT (test code = ALT) 14 <=65 [facility]2018-12-28 10:47:00 Test Item Value Reference Range Interpretation Comments AST (test code = AST) 9 <=37 [facility]2018-12-28 10:47:00 Test Item Value Reference Range Interpretation Comments eGFR (test code = eGFR) 97 [facility]2018-12-28 10:47:00 Test Item Value Reference Range Interpretation Comments Sodium Lvl (test code = Sodium Lvl) 143 135-145 [facility]2018-12-28 10:47:00 Test Item Value Reference Range Interpretation Comments Potassium Lvl (test code = Potassium 3.3 3.5-5.1 Lvl) [facility]2018-12-28 10:47:00 Test Item Value Reference Range Interpretation Comments Chloride Lvl (test code = Chloride Lvl) 107 95-109 [facility]2018-12-28 10:47:00 Test Item Value Reference Range Interpretation Comments Total Protein (test code = Total 6.7 6.4-8.4 Protein) [facility]2018-12-28 10:47:00 Test Item Value Reference Range Interpretation Comments Bili Total (test code = Bili Total) 0.7 0.2-1.3 [facility]2018-12-28 10:47:00 Test Item Value Reference Range Interpretation Comments Calcium Lvl (test code = Calcium Lvl) 8.3 8.5-10.5 [facility]2018-12-28 10:47:00 Test Item Value Reference Range Interpretation Comments CO2 (test code = CO2) 29 24-32 [facility]2018-12-28 10:47:00 Test Item Value Reference Range Interpretation Comments BUN (test code = BUN) 14 7-22 [facility]2018-12-28 10:47:00 Test Item Value Reference Range Interpretation Comments Glucose Lvl (test code = Glucose Lvl) 128 70-99 [facility]2018-12-28 10:47:00 Test Item Value Reference Range Interpretation Comments Alk Phos (test code = Alk Phos) 100 39-136 [facility]2018-12-28 10:47:00 Test Item Value Reference Range Interpretation Comments B/C Ratio (test code = B/C Ratio) 17 1 6-25 [facility]2018-12-28 10:47:00 Test Item Value Reference Range Interpretation Comments Globulin (test code = Globulin) 4.4 2.7-4.2 [facility]2018-12-28 10:47:00 Test Item Value Reference Range Interpretation Comments A/G Ratio (test code = A/G Ratio) 0.5 1 0.7-1.6 [facility]2018-12-28 10:47:00 Test Item Value Reference Range Interpretation Comments AGAP (test code = AGAP) 10.3 10.0-20.0 [facility] [id number] 10:47:00 Test Item Value Reference Range Interpretation Comments Microcyte (test code = 1+ *ABN*(03/01/18 Microcyte) 4:47 AM) [facility] CenterWjaxsbqXNLEGPGSOA8150-63-75 10:47:00 Test Item Value Reference Range Interpretation Comments Lymphocytes # (test code = Lymphocytes 1.4 1.0-5.5 #) [facility] CenterRzkqvtwWQNJQUPNLK8899-40-83 10:47:00 Test Item Value Reference Range Interpretation Comments Monocytes # (test code = Monocytes #) 0.8 <=0.8 [facility] CenterLrvcikaKTQPSMOQLG1799-49-78 10:47:00 Test Item Value Reference Range Interpretation Comments Segs (test code = Segs) 78.3 45.0-75.0 [facility] CenterEvcfymxGJJBKDOFTA8129-07-27 10:47:00 Test Item Value Reference Range Interpretation Comments Basophils (test code = Basophils) 0.4 <=1.0 [facility] CenterIoigfqnANPRKZEOTV1859-06-51 10:47:00 Test Item Value Reference Range Interpretation Comments Neutrophils # (test code = Neutrophils 8.1 1.5-8.1 #) [facility] CenterPlmmurlDAQOBLWCHX4518-10-24 10:47:00 Test Item Value Reference Range Interpretation Comments Monocytes (test code = Monocytes) 7.9 2.0-12.0 [facility] CenterBvswkgiMCWSHJDYKR0484-53-25 10:47:00 Test Item Value Reference Range Interpretation Comments Lymphocytes (test code = Lymphocytes) 13.4 20.0-40.0 [facility] CenterPxemsgqIESVREUSYX2379-91-58 10:47:00 Test Item Value Reference Range Interpretation Comments Hct (test code = Hct) 27.0 42.0-54.0 [facility] CenterOcthfeyNMZKZUQEKP4525-22-38 10:47:00 Test Item Value Reference Range Interpretation Comments MCV (test code = MCV) 78.7 80.0-94.0 [facility] CenterWkiwgvmHHFXMUKFHU0099-99-38 10:47:00 Test Item Value Reference Range Interpretation Comments MCHC (test code = MCHC) 32.7 32.0-36.0 [facility] CenterCghbcmeRHJAYJJTYY4385-55-33 10:47:00 Test Item Value Reference Range Interpretation Comments MCH (test code = MCH) 25.8 pg 27.0-31.0 [facility] SaultKpcbjdiXITANKERER6478-35-81 10:47:00 Test Item Value Reference Range Interpretation Comments MPV (test code = MPV) 8.2 7.4-10.4 [facility] SaultSoupyyuOFLSGEXINH4279-08-63 10:47:00 Test Item Value Reference Range Interpretation Comments Platelet (test code = Platelet) 475 133-450 [facility] CenterWcqbitjIASQUSEOUO9608-75-81 10:47:00 Test Item Value Reference Range Interpretation Comments RDW (test code = RDW) 17.9 11.5-14.5 [facility] CenterQdqisxmPSAUIPTGHY2011-16-37 10:47:00 Test Item Value Reference Range Interpretation Comments RBC (test code = RBC) 3.42 4.70-6.10 [facility] CenterOgokkemYSYJITTZFH3372-73-27 10:47:00 Test Item Value Reference Range Interpretation Comments Hgb (test code = Hgb) 8.8 14.0-18.0 [facility] CenterRnfoequDRYRQYXEOG5026-48-40 10:47:00 Test Item Value Reference Range Interpretation Comments WBC (test code = WBC) 10.3 3.7-10.4 [facility] CenterCARDIAC XSAYZAE8460-08-12 16:12:00 Test Item Value Reference Range Interpretation Comments Troponin-I (test code = Troponin-I) no gt <=0.40 [facility] [id number] 16:12:00 Test Item Value Reference Range Interpretation Comments Magnesium Lvl (test code = Magnesium 2.1 1.8-2.4 Lvl) [facility]2018-12-27 16:12:00 Test Item Value Reference Range Interpretation Comments Alk Phos (test code = Alk Phos) 132 39-136 [facility]2018-12-27 16:12:00 Test Item Value Reference Range Interpretation Comments Potassium Lvl (test code = Potassium 3.8 3.5-5.1 Lvl) [facility]2018-12-27 16:12:00 Test Item Value Reference Range Interpretation Comments Chloride Lvl (test code = Chloride Lvl) 108 95-109 [facility]2018-12-27 16:12:00 Test Item Value Reference Range Interpretation Comments Sodium Lvl (test code = Sodium Lvl) 141 135-145 [facility]2018-12-27 16:12:00 Test Item Value Reference Range Interpretation Comments eGFR (test code = eGFR) 96 [facility]2018-12-27 16:12:00 Test Item Value Reference Range Interpretation Comments B/C Ratio (test code = B/C Ratio) 7 1 6-25 [place] 769468-12-27 16:12:00 Test Item Value Reference Range Interpretation Comments AST (test code = AST) 15 <=37 [place] 769468-12-27 16:12:00 Test Item Value Reference Range Interpretation Comments Creatinine Lvl (test code = Creatinine 0.83 0.50-1.40 Lvl) [facility]2018-12-27 16:12:00 Test Item Value Reference Range Interpretation Comments ALT (test code = ALT) 20 <=65 [facility]2018-12-27 16:12:00 Test Item Value Reference Range Interpretation Comments AGAP (test code = AGAP) 13.8 10.0-20.0 [facility]2018-12-27 16:12:00 Test Item Value Reference Range Interpretation Comments Albumin Lvl (test code = Albumin Lvl) 2.5 3.5-5.0 [facility]2018-12-27 16:12:00 Test Item Value Reference Range Interpretation Comments Glucose Lvl (test code = Glucose Lvl) 153 70-99 [facility]2018-12-27 16:12:00 Test Item Value Reference Range Interpretation Comments BUN (test code = BUN) 6 7-22 [facility]2018-12-27 16:12:00 Test Item Value Reference Range Interpretation Comments CO2 (test code = CO2) 23 24-32 [facility]2018-12-27 16:12:00 Test Item Value Reference Range Interpretation Comments Calcium Lvl (test code = Calcium Lvl) 8.8 8.5-10.5 [facility]2018-12-27 16:12:00 Test Item Value Reference Range Interpretation Comments Bili Total (test code = Bili Total) 0.2 0.2-1.3 [facility]2018-12-27 16:12:00 Test Item Value Reference Range Interpretation Comments Total Protein (test code = Total 7.5 6.4-8.4 Protein) [place] [id number] 16:12:00 Test Item Value Reference Range Interpretation Comments Globulin (test code = Globulin) 5.0 2.7-4.2 [facility] [employer] [id number] 16:12:00 Test Item Value Reference Range Interpretation Comments A/G Ratio (test code = A/G Ratio) 0.5 1 0.7-1.6 [facility] [employer] [id number] 16:12:00 Test Item Value Reference Range Interpretation Comments Phosphorus (test code = Phosphorus) 2.9 2.5-4.5 [facility] [employer] ELJHQTR1883-10-71 04:37:00 Test Item Value Reference Range Interpretation Comments Troponin-I (test code = Troponin-I) no gt <=0.40 [facility] [employer] [id number] 04:37:00 Test Item Value Reference Range Interpretation Comments proBNP (test code = proBNP) 2678 <=125 [facility] IhcrzmaCMNKTSKBPMWB9882-78-54 04:37:00 Test Item Value Reference Range Interpretation Comments CO2 (test code = CO2) 25 24-32 [facility] HospitalWaooopwTHWYPFNAIOGM1404-65-85 04:37:00 Test Item Value Reference Range Interpretation Comments Calcium Lvl (test code = Calcium Lvl) 8.1 8.5-10.5 [facility] HospitalQkrtpzwVDVEEWEDTHVS2779-63-30 04:37:00 Test Item Value Reference Range Interpretation Comments Potassium Lvl (test code = Potassium 3.6 3.5-5.1 Lvl) [facility] HospitalAmxqacdHVIEWWDBRAVR8616-15-69 04:37:00 Test Item Value Reference Range Interpretation Comments Chloride Lvl (test code = Chloride Lvl) 108 95-109 [facility] HospitalRurtpuuWOFZOMSZATOC8617-20-72 04:37:00 Test Item Value Reference Range Interpretation Comments Sodium Lvl (test code = Sodium Lvl) 142 135-145 [facility] HospitalKpatvlcFDYVAHWIJRMW2713-29-10 04:37:00 Test Item Value Reference Range Interpretation Comments Creatinine Lvl (test code = Creatinine 0.80 0.50-1.40 Lvl) [facility] HospitalWefvlceWHWYSCLAILUO8741-56-55 04:37:00 Test Item Value Reference Range Interpretation Comments BUN (test code = BUN) 8 7-22 [facility] HospitalWczwqpbBVLMXCIETKSQ1335-40-55 04:37:00 Test Item Value Reference Range Interpretation Comments Glucose Lvl (test code = Glucose Lvl) 88 70-99 [facility]VnszmuzVJLTWIYKRXTX3383-91-64 04:37:00 Test Item Value Reference Range Interpretation Comments eGFR (test code = eGFR) 97 [facility] HospitalFnzwmlaTPMEFZKDNYIL6907-74-74 04:37:00 Test Item Value Reference Range Interpretation Comments AGAP (test code = AGAP) 12.6 10.0-20.0 [facility] CenterWbgpdijXCYPFIPTRV0184-95-89 04:37:00 Test Item Value Reference Range Interpretation Comments WBC (test code = WBC) 7.8 3.7-10.4 [facility] CenterIbdasegKGLWVCEDFW4996-38-11 04:37:00 Test Item Value Reference Range Interpretation Comments RBC (test code = RBC) 3.53 4.70-6.10 [facility] [facility]OcrwohsRNELIKHJVD6087-69-42 04:37:00 Test Item Value Reference Range Interpretation Comments Hgb (test code = Hgb) 9.0 14.0-18.0 [facility]QcvrmdrVDQRZRUODT8936-15-19 04:37:00 Test Item Value Reference Range Interpretation Comments MCH (test code = MCH) 25.4 pg 27.0-31.0 [facility] CenterSihphkbVFPEPFLYVT8831-81-51 04:37:00 Test Item Value Reference Range Interpretation Comments Hct (test code = Hct) 27.5 42.0-54.0 [facility] CenterDtgogcmLZTLDOOWGD4505-73-81 04:37:00 Test Item Value Reference Range Interpretation Comments MCV (test code = MCV) 78.1 80.0-94.0 [facility] CenterQnipluoRJPJADQPUT0650-53-21 04:37:00 Test Item Value Reference Range Interpretation Comments Platelet (test code = Platelet) 400 133-450 [facility] CenterRkpgybnPBHYMGYBJP1996-80-21 04:37:00 Test Item Value Reference Range Interpretation Comments MCHC (test code = MCHC) 32.5 32.0-36.0 [facility] CenterKjesxedULUKPNJYLX5094-24-95 04:37:00 Test Item Value Reference Range Interpretation Comments MPV (test code = MPV) 8.2 7.4-10.4 [facility] CenterGzbznnwEGQJRFBMAP7125-10-71 04:37:00 Test Item Value Reference Range Interpretation Comments RDW (test code = RDW) 17.8 11.5-14.5 [facility] CenterCerxpqpWAGITBFZGV7944-99-79 04:37:00 Test Item Value Reference Range Interpretation Comments Microcyte (test code = 1+ *ABN*(02/27/18 Microcyte) 10:37 PM) [facility] CenterGqjkfipCNMGYGVWJF6157-04-06 04:37:00 Test Item Value Reference Range Interpretation Comments Eosinophils (test code = Eosinophils) 4.0 <=4.0 [facility] CenterMdkukusAPSAZDWYQD0701-28-50 04:37:00 Test Item Value Reference Range Interpretation Comments Neutrophils # (test code = Neutrophils 4.8 1.5-8.1 #) [facility] CenterBfliixuPKHLXDVPQV4801-89-22 04:37:00 Test Item Value Reference Range Interpretation Comments Basophils (test code = Basophils) 1.2 <=1.0 [facility] CenterZvccbxeLWWLFGYEHL8212-95-47 04:37:00 Test Item Value Reference Range Interpretation Comments Lymphocytes # (test code = Lymphocytes 1.8 1.0-5.5 #) [facility] CenterGebqawhXBBTKRWIPD5957-03-23 04:37:00 Test Item Value Reference Range Interpretation Comments Monocytes # (test code = Monocytes #) 0.7 <=0.8 [facility] CenterNlholwiYPUGQDGEMT0984-47-94 04:37:00 Test Item Value Reference Range Interpretation Comments Basophils # (test code = Basophils #) 0.1 <=0.2 [facility] CenterNsdkrlgDYXJYFAETI2445-10-45 04:37:00 Test Item Value Reference Range Interpretation Comments Eosinophils # (test code = Eosinophils 0.3 <=0.5 #) [facility] CenterAkkrexfKQKFKDNZWD6286-96-63 04:37:00 Test Item Value Reference Range Interpretation Comments Lymphocytes (test code = Lymphocytes) 23.7 20.0-40.0 [facility] CenterZqivhkkQTINHXUEET6759-70-63 04:37:00 Test Item Value Reference Range Interpretation Comments Monocytes (test code = Monocytes) 8.8 2.0-12.0 [facility] CenterEnxaejmAHVRMXVIAY6520-23-92 04:37:00 Test Item Value Reference Range Interpretation Comments Segs (test code = Segs) 62.3 45.0-75.0 [facility]2018-12-27 04:37:00 Test Item Value Reference Range Interpretation Comments UA Gran Cast (test code = UA Gran 6-10 /LPF Cast) [facility] AND MQKQP5330-26-01 04:37:00 Test Item Value Reference Range Interpretation Comments UA Color (test code = Yellow *NA*(02/27/18 UA Color) 10:37 PM) [facility] [id number] 04:37:00 Test Item Value Reference Range Interpretation Comments UA Turbidity (test code Moderate = UA Turbidity) *ABN*(02/27/18 10:37 PM) [facility] AND [id number] 04:37:00 Test Item Value Reference Range Interpretation Comments UA Amorph Atiya (test code = Occasional /HPF UA Amorph Atiya) [facility] [id number] 04:37:00 Test Item Value Reference Range Interpretation Comments UA Bacteria (test code = UA Occasional /HPF Bacteria) [facility] [id number] 04:37:00 Test Item Value Reference Range Interpretation Comments UA Mucus (test code = UA Mucus) Few /LPF [facility] [id number] 04:37:00 Test Item Value Reference Range Interpretation Comments UA RBC (test code = UA RBC) 1 <=2 [facility] [id number] 04:37:00 Test Item Value Reference Range Interpretation Comments UA Leuk Est (test Negative (02/27/18 10:37 code = UA Leuk Est) PM) [facility] [id number] 04:37:00 Test Item Value Reference Range Interpretation Comments UA Nitrite (test code Negative (02/27/18 = UA Nitrite) 10:37 PM) [facility] [id number] 04:37:00 Test Item Value Reference Range Interpretation Comments UA WBC (test code = UA WBC) 1 <=5 [facility] [id number] 04:37:00 Test Item Value Reference Range Interpretation Comments UA Sq Epi (test code = UA Sq Occasional /LPF Epi) [facility] [id number] 04:37:00 Test Item Value Reference Range Interpretation Comments UA Protein (test code Negative (02/27/18 = UA Protein) 10:37 PM) [facility] [id number] 04:37:00 Test Item Value Reference Range Interpretation Comments UA Spec Grav (test code = UA Spec 1.009 1 Grav) [facility] [id number] 04:37:00 Test Item Value Reference Range Interpretation Comments UA pH (test code = UA pH) 6.0 1 5.0-8.0 [facility] [id number] 04:37:00 Test Item Value Reference Range Interpretation Comments UA Ketones (test code Negative *NA*(02/27/18 = UA Ketones) 10:37 PM) [facility] [id number] 04:37:00 Test Item Value Reference Range Interpretation Comments UA Urobilinogen (test code = UA <=1.0 mg/dL 0.1-1.0 Urobilinogen) [facility] AND [id number] 04:37:00 Test Item Value Reference Range Interpretation Comments UA Blood (test code = Negative (02/27/18 10:37 UA Blood) PM) [facility] AND [id number] 04:37:00 Test Item Value Reference Range Interpretation Comments UA Glucose (test code Negative *NA*(02/27/18 = UA Glucose) 10:37 PM) [facility] AND [id number] 04:37:00 Test Item Value Reference Range Interpretation Comments UA Bili (test code = Negative *NA*(02/27/18 UA Bili) 10:37 PM) [facility] - [id number] 04:37:00 Test Item Value Reference Range Interpretation Comments Influ A (test code = Negative (02/27/18 10:37 Influ A) PM) [facility] - [id number] 04:37:00 Test Item Value Reference Range Interpretation Comments Influ B (test code = Negative (02/27/18 10:37 Influ B) PM) [facility]fyXLCPWSEZBNHA5978-84-94 12:27:00 Test Item Value Reference Range Interpretation Comments AGAP (test code = AGAP) 12.7 10.0-20.0 [facility]LghsakjOECOEVCVGMFW7266-74-89 12:27:00 Test Item Value Reference Range Interpretation Comments Glucose Lvl (test code = Glucose Lvl) 79 70-99 [facility] ResourcesBpwnlocOBNJHTZNEBAI4161-57-97 12:27:00 Test Item Value Reference Range Interpretation Comments Potassium Lvl (test code = Potassium 3.7 3.5-5.1 Lvl) [facility]CyhtbjlHRWTRRGZUKHG5221-79-56 12:27:00 Test Item Value Reference Range Interpretation Comments Sodium Lvl (test code = Sodium Lvl) 144 135-145 [facility] HospitalTimoinbBDPVACJPAVMA3040-28-75 12:27:00 Test Item Value Reference Range Interpretation Comments Chloride Lvl (test code = Chloride Lvl) 109 95-109 [facility] HospitalIycznvfQUEMLXKCASLF9932-13-16 12:27:00 Test Item Value Reference Range Interpretation Comments eGFR (test code = eGFR) 104 [facility] HospitalJiclszqMUPOOZPVFLUE6566-95-87 12:27:00 Test Item Value Reference Range Interpretation Comments Creatinine Lvl (test code = Creatinine 0.68 0.50-1.40 Lvl) [facility] HospitalWveldanITNDCLNMQFUW7879-08-41 12:27:00 Test Item Value Reference Range Interpretation Comments Calcium Lvl (test code = Calcium Lvl) 8.2 8.5-10.5 [facility] HospitalWyrfhynBUFQMIEEXFXR8493-71-90 12:27:00 Test Item Value Reference Range Interpretation Comments CO2 (test code = CO2) 26 24-32 [facility] HospitalMoazqvpRFVMGHAOMWOW5874-64-95 12:27:00 Test Item Value Reference Range Interpretation Comments BUN (test code = BUN) 9 7-22 [facility] CenterQhhbxwdMPKBQNAVIW8468-94-04 12:27:00 Test Item Value Reference Range Interpretation Comments MPV (test code = MPV) 8.2 7.4-10.4 [facility] CenterCohvdlqQAWNEGRXBO2021-96-02 12:27:00 Test Item Value Reference Range Interpretation Comments RDW (test code = RDW) 17.6 11.5-14.5 [facility] CenterBlihbouNZKUNTLATY2425-44-29 12:27:00 Test Item Value Reference Range Interpretation Comments Platelet (test code = Platelet) 336 133-450 [facility] CenterRqovmrgETZGNKKRCA3893-85-76 12:27:00 Test Item Value Reference Range Interpretation Comments MCV (test code = MCV) 80.4 80.0-94.0 [facility] CenterTsqxvuoYYNALAGSKQ3053-47-99 12:27:00 Test Item Value Reference Range Interpretation Comments MCH (test code = MCH) 25.7 pg 27.0-31.0 [facility] CenterKlaogrqVGFYMPYWTV4305-66-32 12:27:00 Test Item Value Reference Range Interpretation Comments MCHC (test code = MCHC) 32.0 32.0-36.0 [facility] CenterLklhaopBAEFLNPGWV5263-37-11 12:27:00 Test Item Value Reference Range Interpretation Comments RBC (test code = RBC) 3.65 4.70-6.10 [facility] CenterMzkuakrMOZZQVHCXJ4696-35-17 12:27:00 Test Item Value Reference Range Interpretation Comments WBC (test code = WBC) 6.8 3.7-10.4 [facility] CenterJekixqtSEXHIRQNEL1423-59-55 12:27:00 Test Item Value Reference Range Interpretation Comments Hgb (test code = Hgb) 9.4 14.0-18.0 [facility] CenterWoocpjrLUZWRUCHZW5361-66-73 12:27:00 Test Item Value Reference Range Interpretation Comments Hct (test code = Hct) 29.3 42.0-54.0 [facility] CenterNmekbshNWKQJIVPVQ4699-75-02 12:27:00 Test Item Value Reference Range Interpretation Comments Lymphocytes # (test code = Lymphocytes 1.4 1.0-5.5 #) [facility] CenterLaijibjTPSDXTCBDL9846-41-58 12:27:00 Test Item Value Reference Range Interpretation Comments Monocytes # (test code = Monocytes #) 0.6 <=0.8 [facility] CenterQpycbtsVKXZDBWOXD0041-35-27 12:27:00 Test Item Value Reference Range Interpretation Comments Basophils # (test code = Basophils #) 0.1 <=0.2 [facility] CenterTxcxorrIDBDKNFEGO3570-59-84 12:27:00 Test Item Value Reference Range Interpretation Comments Neutrophils # (test code = Neutrophils 4.5 1.5-8.1 #) [facility] CenterEdrnfskVLRBKXNWCF4143-65-02 12:27:00 Test Item Value Reference Range Interpretation Comments Lymphocytes (test code = Lymphocytes) 19.9 20.0-40.0 [facility] CenterLdbjcxqPBNJJRCQLE2158-97-59 12:27:00 Test Item Value Reference Range Interpretation Comments Monocytes (test code = Monocytes) 8.8 2.0-12.0 [facility] CenterOpkxsvkBQZOYPZEDJ9926-50-91 12:27:00 Test Item Value Reference Range Interpretation Comments Segs (test code = Segs) 66.4 45.0-75.0 [facility] CenterVsgxutlBYJDCLHJZQ3837-65-37 12:27:00 Test Item Value Reference Range Interpretation Comments Eosinophils # (test code = Eosinophils 0.3 <=0.5 #) [facility] CenterViowsltKHZZUGPFPI3460-29-96 12:27:00 Test Item Value Reference Range Interpretation Comments Basophils (test code = Basophils) 1.0 <=1.0 [place] 523938-12-20 12:27:00 Test Item Value Reference Range Interpretation Comments Eosinophils (test code = Eosinophils) 3.9 <=4.0 [facility]2018-12-19 10:35:00 Test Item Value Reference Range Interpretation Comments Calcium Lvl (test code = Calcium Lvl) 7.8 8.5-10.5 [facility]2018-12-19 10:35:00 Test Item Value Reference Range Interpretation Comments eGFR (test code = eGFR) 112 [facility]2018-12-19 10:35:00 Test Item Value Reference Range Interpretation Comments Creatinine Lvl (test code = Creatinine 0.56 0.50-1.40 Lvl) [facility]2018-12-19 10:35:00 Test Item Value Reference Range Interpretation Comments Phosphorus (test code = Phosphorus) 2.9 2.5-4.5 [facility]2018-12-19 10:35:00 Test Item Value Reference Range Interpretation Comments Glucose Lvl (test code = Glucose Lvl) 89 70-99 [facility]2018-12-19 10:35:00 Test Item Value Reference Range Interpretation Comments CO2 (test code = CO2) 25 24-32 [facility]2018-12-19 10:35:00 Test Item Value Reference Range Interpretation Comments BUN (test code = BUN) 9 7-22 [facility]2018-12-19 10:35:00 Test Item Value Reference Range Interpretation Comments Albumin Lvl (test code = Albumin Lvl) 2.1 3.5-5.0 [facility]2018-12-19 10:35:00 Test Item Value Reference Range Interpretation Comments Chloride Lvl (test code = Chloride Lvl) 111 95-109 [facility]2018-12-19 10:35:00 Test Item Value Reference Range Interpretation Comments Sodium Lvl (test code = Sodium Lvl) 144 135-145 [facility]2018-12-19 10:35:00 Test Item Value Reference Range Interpretation Comments Potassium Lvl (test code = Potassium 3.6 3.5-5.1 Lvl) [facility]2018-12-19 10:35:00 Test Item Value Reference Range Interpretation Comments AGAP (test code = AGAP) 11.6 10.0-20.0 [facility] CenterKeosqzsKOYSQMQPJC8818-77-77 10:35:00 Test Item Value Reference Range Interpretation Comments Hgb (test code = Hgb) 9.0 14.0-18.0 [facility] CenterFdhzmjbMHEWIXMWCS4260-19-31 10:35:00 Test Item Value Reference Range Interpretation Comments RBC (test code = RBC) 3.53 4.70-6.10 [facility] CenterHzakzsnDKCHCWAYBW7598-89-25 10:35:00 Test Item Value Reference Range Interpretation Comments MCV (test code = MCV) 81.1 80.0-94.0 [facility] CenterIplxswdWMHTOVITDH2883-18-48 10:35:00 Test Item Value Reference Range Interpretation Comments Hct (test code = Hct) 28.6 42.0-54.0 [facility] CenterYjctfiuNTAVMOZINA2584-40-58 10:35:00 Test Item Value Reference Range Interpretation Comments WBC (test code = WBC) 6.9 3.7-10.4 [facility] CenterBihknapNGAYNXWSLJ4517-21-53 10:35:00 Test Item Value Reference Range Interpretation Comments MPV (test code = MPV) 7.8 7.4-10.4 [facility] CenterCxwsvtfUJDFPPUTHE2368-59-35 10:35:00 Test Item Value Reference Range Interpretation Comments Platelet (test code = Platelet) 294 133-450 [facility] CenterPkiqfgyQZHNOLNINR3051-55-83 10:35:00 Test Item Value Reference Range Interpretation Comments RDW (test code = RDW) 17.5 11.5-14.5 [facility] CenterAzejlbsINAQAIGIPT5946-38-97 10:35:00 Test Item Value Reference Range Interpretation Comments MCHC (test code = MCHC) 31.7 32.0-36.0 [facility] CenterXloeycuOFADILQJCF9643-05-42 10:35:00 Test Item Value Reference Range Interpretation Comments MCH (test code = MCH) 25.7 pg 27.0-31.0 [facility] CenterXzdpubpCZKCNMAKPE3009-53-84 10:35:00 Test Item Value Reference Range Interpretation Comments Lymphocytes (test code = Lymphocytes) 18.5 20.0-40.0 [facility] CenterTwtxyotTHBPLCKFRA8376-55-46 10:35:00 Test Item Value Reference Range Interpretation Comments Segs (test code = Segs) 67.0 45.0-75.0 [facility] CenterJkhgxhxNNFFNIHNUM2981-13-96 10:35:00 Test Item Value Reference Range Interpretation Comments Monocytes (test code = Monocytes) 9.8 2.0-12.0 [facility] CenterKgfrfdgTMYVGSWXRL1966-48-96 10:35:00 Test Item Value Reference Range Interpretation Comments Basophils (test code = Basophils) 1.0 <=1.0 [facility] CenterVryxcfwGJKXWSZAYF5756-66-46 10:35:00 Test Item Value Reference Range Interpretation Comments Eosinophils (test code = Eosinophils) 3.7 <=4.0 [facility] CenterJpnsseaHDFBUXTKSF4865-08-67 10:35:00 Test Item Value Reference Range Interpretation Comments Monocytes # (test code = Monocytes #) 0.7 <=0.8 [facility] CenterJalgahbJVAZGVRKRT1496-98-55 10:35:00 Test Item Value Reference Range Interpretation Comments Lymphocytes # (test code = Lymphocytes 1.3 1.0-5.5 #) [facility] CenterDmmlhsoBIQHZVURGG5198-71-81 10:35:00 Test Item Value Reference Range Interpretation Comments Neutrophils # (test code = Neutrophils 4.6 1.5-8.1 #) [facility] CenterKkxzymvOITLMKBZFG4054-44-88 10:35:00 Test Item Value Reference Range Interpretation Comments Basophils # (test code = Basophils #) 0.1 <=0.2 [facility] CenterGechcvaMLJNFYEBCZ7116-24-98 10:35:00 Test Item Value Reference Range Interpretation Comments Eosinophils # (test code = Eosinophils 0.3 <=0.5 #) [place] [id number] 10:35:00 Test Item Value Reference Range Interpretation Comments Vanco Tr (test code = Vanco Tr) 21.8 [place] [id number] 10:35:00 Test Item Value Reference Range Interpretation Comments Vanco Tr TND (test code = Vanco Tr 0500 1 TND) [facility] HospitalZpppvilBUJDKARGAPOB1696-39-89 10:29:00 Test Item Value Reference Range Interpretation Comments AGAP (test code = AGAP) 11.4 10.0-20.0 [facility] HospitalYmzcxezKDLHQAEEFBMU9611-81-80 10:29:00 Test Item Value Reference Range Interpretation Comments Chloride Lvl (test code = Chloride Lvl) 111 95-109 [facility] HospitalMcvcdybBRBXVKNBKHGT3365-76-35 10:29:00 Test Item Value Reference Range Interpretation Comments Sodium Lvl (test code = Sodium Lvl) 144 135-145 [facility] HospitalHmnoxczCEHXQSCQOVTS1441-92-85 10:29:00 Test Item Value Reference Range Interpretation Comments Potassium Lvl (test code = Potassium 3.4 3.5-5.1 Lvl) [facility] HospitalEegictsJQTEGYEJIYBN0597-09-29 10:29:00 Test Item Value Reference Range Interpretation Comments Calcium Lvl (test code = Calcium Lvl) 7.6 8.5-10.5 [facility] HospitalKcnqhyeALUFWRRITKZD7603-35-04 10:29:00 Test Item Value Reference Range Interpretation Comments Glucose Lvl (test code = Glucose Lvl) 85 70-99 [facility] HospitalAbauhhyOKSDLBEOYIZD9475-33-39 10:29:00 Test Item Value Reference Range Interpretation Comments eGFR (test code = eGFR) 114 [facility] HospitalKvobecxZFJVNSQBJRKA3899-34-56 10:29:00 Test Item Value Reference Range Interpretation Comments Creatinine Lvl (test code = Creatinine 0.54 0.50-1.40 Lvl) [facility] HospitalXswepkxZLHPXCEJYKPH3716-23-31 10:29:00 Test Item Value Reference Range Interpretation Comments BUN (test code = BUN) 8 7-22 [facility] HospitalUicdwxvLOGJTMLYEZEE7513-35-88 10:29:00 Test Item Value Reference Range Interpretation Comments CO2 (test code = CO2) 25 24-32 [facility] CenterYmvzsvaNAVWVVLVHW4465-68-43 10:29:00 Test Item Value Reference Range Interpretation Comments Platelet (test code = Platelet) 275 133-450 [facility] CenterJfmpucnRWIQOLESNN6029-18-81 10:29:00 Test Item Value Reference Range Interpretation Comments RDW (test code = RDW) 17.0 11.5-14.5 [facility] CenterTduqbyhEEQFAPZHSA4535-29-77 10:29:00 Test Item Value Reference Range Interpretation Comments MCHC (test code = MCHC) 32.4 32.0-36.0 [facility] CenterTjtvgwaZPBRGOCKXJ5321-09-67 10:29:00 Test Item Value Reference Range Interpretation Comments MCH (test code = MCH) 26.1 pg 27.0-31.0 [facility] CenterSsmfnylHDTAIMDGIY5297-76-15 10:29:00 Test Item Value Reference Range Interpretation Comments MCV (test code = MCV) 80.5 80.0-94.0 [facility] CenterSrunfvqDLCGYAZSYS6119-77-26 10:29:00 Test Item Value Reference Range Interpretation Comments Hct (test code = Hct) 27.5 42.0-54.0 [facility] CenterQgnrgugZBNIRNZDJW2660-53-29 10:29:00 Test Item Value Reference Range Interpretation Comments RBC (test code = RBC) 3.42 4.70-6.10 [facility] CenterXibkmgzIGYDWVGFHZ4530-61-93 10:29:00 Test Item Value Reference Range Interpretation Comments Hgb (test code = Hgb) 8.9 14.0-18.0 [place] [address]-12-17 10:29:00 Test Item Value Reference Range Interpretation Comments WBC (test code = WBC) 6.9 3.7-10.4 [facility] CenterBvvxrmwFONXTOAQCO9198-76-10 10:29:00 Test Item Value Reference Range Interpretation Comments MPV (test code = MPV) 8.0 7.4-10.4 [facility] CenterIyfshwpNBMKDUIRLG0207-67-68 10:29:00 Test Item Value Reference Range Interpretation Comments Monocytes # (test code = Monocytes #) 0.7 <=0.8 [place] [address]-12-17 10:29:00 Test Item Value Reference Range Interpretation Comments Lymphocytes # (test code = Lymphocytes 1.6 1.0-5.5 #) [facility] CenterRgzxyvuFILTCANTIK0168-93-40 10:29:00 Test Item Value Reference Range Interpretation Comments Eosinophils # (test code = Eosinophils 0.3 <=0.5 #) [facility] CenterKrhwakbZYUQKBWRZH9909-81-41 10:29:00 Test Item Value Reference Range Interpretation Comments Lymphocytes (test code = Lymphocytes) 23.6 20.0-40.0 [facility] CenterPgvmyrsXEIVYESORB6727-73-62 10:29:00 Test Item Value Reference Range Interpretation Comments Monocytes (test code = Monocytes) 10.1 2.0-12.0 [facility] CenterRipierxOWATPSMXPC3211-95-99 10:29:00 Test Item Value Reference Range Interpretation Comments Eosinophils (test code = Eosinophils) 3.9 <=4.0 [place] 523938-12-17 10:29:00 Test Item Value Reference Range Interpretation Comments Basophils (test code = Basophils) 0.7 <=1.0 [facility]aultUrmfrwvSQDAPPIJWU6107-48-70 10:29:00 Test Item Value Reference Range Interpretation Comments Neutrophils # (test code = Neutrophils 4.2 1.5-8.1 #) [facility] SaultKghzynsKFOQZQRGAO4987-65-56 10:29:00 Test Item Value Reference Range Interpretation Comments Segs (test code = Segs) 61.7 45.0-75.0 [facility] SaultRwojlfiKYUFEPOXVF4057-86-97 11:52:00 Test Item Value Reference Range Interpretation Comments Basophils # (test code = Basophils #) 0.1 <=0.2 [facility] CenterBACTERIAL - EQDOVDYA3355-66-45 23:42:00 Test Item Value Reference Range Interpretation Comments MRSA by PCR (test Negative (02/16/18 5:42 code = MRSA by PCR) PM) [facility] CenterDajbzvkFMPJKOTQWT3574-24-00 12:00:00 Test Item Value Reference Range Interpretation Comments Vanco Tr TND (test code = Vanco Tr 0530 1 TND) [facility] CenterEhgjsppVZTTWBZGDF6954-19-75 12:00:00 Test Item Value Reference Range Interpretation Comments Vanco Tr (test code = Vanco Tr) 6.7 [facility] SaultVkflvmiBVHRJMOKJR3397-52-26 22:11:00 Test Item Value Reference Range Interpretation Comments PTT (test code = PTT) 38.4 s 22.9-35.8 [facility] CenterCulture: Ligyohiem0623-82-95 22:47:00 Test Item Value Reference Range Interpretation Comments Culture: Anaerobic No Anaerobes Isolated (test code = Culture: Anaerobic) [facility] Stain Xatydb9371-07-16 22:47:00 Test Item Value Reference Range Interpretation Comments Gram Stain Report Rare WBC's No Organisms (test code = Gram Seen Stain Report) [facility]annCulture: Aspirate/Body Fluid/Vdmtpa5614-02-59 22:47:00 Test Item Value Reference Range Interpretation Comments Culture: Aspirate/Body Fluid/Tissue No Growth (test code = Culture: Aspirate/Body Fluid/Tissue) [facility] CenterCulture: Rbbvkmzij3640-68-98 22:40:00 Test Item Value Reference Range Interpretation Comments Culture: Anaerobic No Anaerobes Isolated (test code = Culture: Anaerobic) [facility] [id number] 22:40:00 Test Item Value Reference Range Interpretation Comments Gram Stain Report Rare WBC's No Organisms (test code = Gram Seen Stain Report) [facility] Aspirate/Body Fluid/[id number] 22:40:00 Test Item Value Reference Range Interpretation Comments Culture: Aspirate/Body Fluid/Tissue No Growth (test code = Culture: Aspirate/Body Fluid/Tissue) [facility] [id number] 09:55:00 Test Item Value Reference Range Interpretation Comments Antibody Scrn (test Negative (02/14/18 code = Antibody Scrn) 3:55 AM) [facility] [id number] 09:55:00 Test Item Value Reference Range Interpretation Comments ABO/Rh (test code = ABO/Rh) A POS [facility] [id number] 09:55:00 Test Item Value Reference Range Interpretation Comments B/C Ratio (test code = B/C Ratio) 14 1 6-25 [facility] [id number] 09:55:00 Test Item Value Reference Range Interpretation Comments Globulin (test code = Globulin) 5.3 2.7-4.2 [facility] [id number] 09:55:00 Test Item Value Reference Range Interpretation Comments A/G Ratio (test code = A/G Ratio) 0.5 1 0.7-1.6 [facility] [id number] 09:55:00 Test Item Value Reference Range Interpretation Comments Albumin Lvl (test code = Albumin Lvl) 2.8 3.5-5.0 [facility] [id number] 09:55:00 Test Item Value Reference Range Interpretation Comments Alk Phos (test code = Alk Phos) 92 39-136 [facility] [id number] 09:55:00 Test Item Value Reference Range Interpretation Comments ALT (test code = ALT) 21 <=65 [facility] [id number] 09:55:00 Test Item Value Reference Range Interpretation Comments AST (test code = AST) 15 <=37 [facility] [id number] 09:55:00 Test Item Value Reference Range Interpretation Comments Total Protein (test code = Total 8.1 6.4-8.4 Protein) [facility] [id number] 09:55:00 Test Item Value Reference Range Interpretation Comments Bili Total (test code = Bili Total) 0.2 0.2-1.3 [id number] 09:55:00 Test Item Value Reference Range Interpretation Comments PTT (test code = PTT) 35.4 s 22.9-35.8 [facility] [id number] 09:55:00 Test Item Value Reference Range Interpretation Comments PT (test code = PT) 13.4 s 12.0-14.7 [facility] [id number] 09:55:00 Test Item Value Reference Range Interpretation Comments INR (test code = INR) 1.04 1 0.85-1.17 [facility] [id number] 03:06:00 Test Item Value Reference Range Interpretation Comments Lactic Acid Lvl (test code = Lactic 1.3 0.5-2.2 Acid Lvl) [facility] [id number] 03:06:00 Test Item Value Reference Range Interpretation Comments Sed Rate (test code = Sed Rate) 60 <=15 [facility] [id number] 01:24:00 Test Item Value Reference Range Interpretation Comments RBC product (test code Product available = RBC product) 4(02/13/18 7:24 PM) [facility] AND [id number] 01:00:00 Test Item Value Reference Range Interpretation Comments UA pH (test code = UA pH) 6.0 1 5.0-8.0 [facility] AND [id number] 01:00:00 Test Item Value Reference Range Interpretation Comments UA Nitrite (test code Negative (02/13/18 7:00 = UA Nitrite) PM) [facility] AND [id number] 01:00:00 Test Item Value Reference Range Interpretation Comments UA Blood (test code = Negative (02/13/18 7:00 UA Blood) PM) [facility] AND [id number] 01:00:00 Test Item Value Reference Range Interpretation Comments UA Bili (test code = Negative *NA*(02/13/18 UA Bili) 7:00 PM) [facility] AND [id number] 01:00:00 Test Item Value Reference Range Interpretation Comments UA Ketones (test code = UA Ketones) Negative [facility] [id number] 01:00:00 Test Item Value Reference Range Interpretation Comments UA Glucose (test code Negative *NA*(02/13/18 = UA Glucose) 7:00 PM) [facility] [id number] 01:00:00 Test Item Value Reference Range Interpretation Comments UA Sq Epi (test code = UA Sq Occasional /LPF Epi) [facility] [id number] 01:00:00 Test Item Value Reference Range Interpretation Comments UA Leuk Est (test Negative (02/13/18 7:00 code = UA Leuk Est) PM) [facility] [id number] 01:00:00 Test Item Value Reference Range Interpretation Comments UA Urobilinogen (test code = UA <=1.0 mg/dL 0.1-1.0 Urobilinogen) [facility] [id number] 01:00:00 Test Item Value Reference Range Interpretation Comments UA Color (test code = Yellow *NA*(02/13/18 UA Color) 7:00 PM) [facility] [id number] 01:00:00 Test Item Value Reference Range Interpretation Comments UA Turbidity (test code = Clear (02/13/18 7:00 UA Turbidity) PM) [facility] [id number] 01:00:00 Test Item Value Reference Range Interpretation Comments UA Hyal Cast (test code = UA Hyal Cast) 4 <=2 [facility] [id number] 01:00:00 Test Item Value Reference Range Interpretation Comments UA Mucus (test code = UA Mucus) Many /LPF [facility] [id number] 01:00:00 Test Item Value Reference Range Interpretation Comments UA WBC (test code = UA WBC) 1 <=5 [facility] [id number] 01:00:00 Test Item Value Reference Range Interpretation Comments UA Protein (test code Negative (02/13/18 7:00 = UA Protein) PM) [facility] [id number] 01:00:00 Test Item Value Reference Range Interpretation Comments UA Spec Grav (test code = UA Spec 1.013 1 Grav) [facility] [id number] 22:30:00 Test Item Value Reference Range Interpretation Comments Total CK (test code = Total CK) 26 12-191 [facility] [id number] 22:30:00 Test Item Value Reference Range Interpretation Comments BNP (test code = BNP) 81 [facility] [id number] 22:30:00 Test Item Value Reference Range Interpretation Comments Troponin-I (test code = Troponin-I) no gt <=0.40 [facility] [id number] 22:30:00 Test Item Value Reference Range Interpretation Comments Lactic Acid Lvl (test code = Lactic 2.1 0.5-2.2 Acid Lvl) [facility] [id number] 22:30:00 Test Item Value Reference Range Interpretation Comments B/C Ratio (test code = B/C Ratio) 10 1 6-25 [facility] [id number] 22:30:00 Test Item Value Reference Range Interpretation Comments Globulin (test code = Globulin) 4.7 2.7-4.2 [facility] [id number] 22:30:00 Test Item Value Reference Range Interpretation Comments A/G Ratio (test code = A/G Ratio) 0.6 1 0.7-1.6 [facility] [employer]2018-12-12 22:30:00 Test Item Value Reference Range Interpretation Comments Total Protein (test code = Total 7.6 6.4-8.4 Protein) [facility] [id number] 22:30:00 Test Item Value Reference Range Interpretation Comments Bili Total (test code = Bili Total) 0.4 0.2-1.3 [facility] [id number] 22:30:00 Test Item Value Reference Range Interpretation Comments AST (test code = AST) 13 <=37 [facility]2018-12-12 22:30:00 Test Item Value Reference Range Interpretation Comments Alk Phos (test code = Alk Phos) 95 39-136 [facility] [id number] 22:30:00 Test Item Value Reference Range Interpretation Comments ALT (test code = ALT) 18 <=65 [facility]2018-12-12 22:30:00 Test Item Value Reference Range Interpretation Comments Albumin Lvl (test code = Albumin Lvl) 2.9 3.5-5.0 [facility] [id number] 22:30:00 Test Item Value Reference Range Interpretation Comments D-Dimer (test code = D-Dimer) 0.55 [facility] [id number] 22:30:00 Test Item Value Reference Range Interpretation Comments C-REACTIVE PROTEIN (test code = 48.5 C-REACTIVE PROTEIN) [facility] Notes Date/Time Note Provider Source 2022-06-25 11:01:00 [id number]:01:00 [facility] ([facility])Cardiology Progress NoteREPORT#:[id number] REPORT STATUS: SignedDATE:06/25/22 TIME:1101 PATIENT: PATITO HARDY UNIT #: [id number]#: [id number] [address] AGE: 66 SEX: M ATTEND: Jamal Red [facility] AUTHOR: Neno Augustin MD * ALL edits or amendments must be made on the electronic/computer document * SubjectiveHPI:66-year-old gentleman with significant PMH PSH and comorbidties including premature CAD s/p CABG x 4 in 2018 who experienced severe cp / angina sob diaphoresis upper epigastric pain. He states his symptoms started around 5 PM and he woke up and drenched with sweat. This incident occurred again at 11 PM. He also complains of moderate, achy, sharp epigastric pain. He states thissensation is similar to his cardiac issues. Serial EKG's suggested acute STEMI involving the inferior distribution. Code STEMI was activated Free Text Subj NotesFree Text Subj Notes:NO recurrent angina Objective GeneralVS/I O:24 hour I O endin g at 0700: 06/25 0700 06/24 1900 Intake Total 1250.00 450.00 Output Total 400 300 Balance 850.00 150.00 Intake, IV 1200.00 200.00 Intake, Oral 50 250 Number 0 Bowel Movements Number Void s 3 Output, Stool 0 Output, Urine 400 300 Vital Signs: Date Time Temp Pulse Resp B/P B/P Pulse O 2 O2 Flow FiO2 Mean Ox Delivery Rate 06/25 0900 79 96 06/25 0800 60 119/62 85 95 06/25 0747 36.5 06/25 0705 94 Room air 06/25 0700 63 139/64 92 9 7 06/25 0600 58 135/68 96 95 06/25 [...] 2000 36.4 84 15 104/52 69 96 06/24 2000 84 104/5 2 75 91 06/24 1944 97 Room air 21 06/24 1915 94 105/56 73 93 06/24 1820 37.2 15 06/24 1800 93 114/65 83 93 06/24 1700 100 127/82 97 93 06/24 1600 90 116/71 89 93 06/24 1402 65 16 115/59 83 95 06/24 1300 85 18 99/56 75 96 06/24 1201 101 2 9 125/103 111 97 PATIENT WEIGHT: Weight (lb): Weight (oz): Weight (kg): 77.273 Medications:Active Meds + DC'd Last 24 HrsAtorvastatin Calcium (LIPITOR) 80 MG DAILY 1700 PO Sodium Chloride (0.9% Sodium Chloride) 1,000 ML .Q10H IV Aspirin (ECOTRIN) 81 MG DAILY PO Carvedilol (COREG) 6.25 MG Q12HR PO Clopidogrel Bisulfate (Plavix) 75 MG DAILY PO Isosorbide Mononitrate (IMDUR) 60 MG DAILY PO Mupirocin (BACTROBAN NASAL-ADULT ICU/ISSA MRSA PATIENTS) 1 APPLIC 0900,1700 NASAL Physical ExamGeneral appearance: alert, awake, oriented, no acute distress, pleasant, conversational, mental status normal, no respiratory distressHead/Eyes: atraumatic, EOMI, normocephalic, PERRLAENT: moist mucosal membranesNeck: carotid bruit, JVD present, full range of motion, non-tenderCardiovascular: CV assessment: abnormal S1/S2, ectopy, gallop, S3 present, S4 present Murmur assessment:I/ HSMRespiratory: crackles, rales, shortness of breathAbdomen: no distention, no mass/organomegaly, no pulsatile mass, no reboundLower extremity: LE assessment: edema, abnormal peripheral pulseNeuro/LENS MOLDER: alert, oriented X 3, normal speech, no motor deficits Diagnosis, Assessment PlanConsultants: cardiolog y Free Text DxA P NotesFree Text DxA P Notes:ASSESSMENT: Acute STEMI - inferior distribution - s/p successful primary PCI with PTCA of red devil RCA and DEStenting of the SVG to the RPDA Acute on chronic systolic and diastolic congestive heart failure - HFrEF 45% Coronary atherosclerotic disease - s/p CABG x 4 in 2018 Ischemic cardiomyopathy Metabolic syndrome with HHD dyslipdemia insulin resistance PLAN: Otimize cardiac medical management s/p successful primar y PCI with PTCA of red devil RCA and DEStenting of th e SVG to the RPDA Continue DAPT Discharge planning Staged PCI of the LAD can be pusued subsequently pending clinical course as outpatient at 1103 RPT #: [id number] OF REPORT PRProgress rqcb0925-05-07H80:01:00L.[id number] l able for patient snmkMCHGQEWYMSEMLE7130-64-95P67:04:02 2022-06-25 09:54:00 [id number]:54:00 [facility] ([facility])Hospitalist Discharg e SummaryREPORT#:[id number] REPORT STATUS: SignedDATE:06/25/22 TIME:953 PATIENT: PATITO HARDY UNIT #: [id number]#: [id number] [address] AGE: 66 SEX: M ATTEND: Jamal Red [facility] AUTHOR: Jamal Red MD * ALL edits o r amendments must be made on the electronic/computer document * General InformationDischarge date: 06/25/22Discharge diagnosis:Acute STEMI (ST elevation myocardial infarction)Status post LHC , S/p PCI PCI with PTCA of red devil RCA and DEStenting of the SVG to the RPDA by Dr Augustin on 06/24/22CAD with quadrupple CABG 2018 Acute on chronic systolic and diastolic congestive heart failure Ischemic cardiomyopathyCoronary atherosclerotic disease - s/p CABG x 4 in 2018Metabolic syndrome with HHD dyslipdemia insulin resistanceAKI(acute kidney injury) Hospital course:66-year-old male with history of CAD with quadruple bypass 2018 who presented to the ED with diaphoresis and upper epigastric pain/chest discomfort. Patient report s that his neighbour had noticed about 2 days ago that he wasn't looking well and mentioned to him . But his symptoms started around 5 PM yesterday whenhe woke up and drenched with sweat. This incident occurred again at 11 PM. He also complains of moderate, achy, sharp epigastric pain. He states this sensation is similar to his cardiac issues. Denies any fever, chills, shortnessof breath, nausea or vomiting. Brought in by EMS with concerns for STEMI. Serial EKG's suggested acute STEMI involving the inferior distribution. Code STEMI was activated and he wa s taken to the [facility] and Dr. Augustin perfomed heart cath with PCI with PTCA of red devil RCA and DEStenting of the SVG to the RPDA by Dr Augustin o n 06/24/22Patient was monitored on telemetry and continued on our antiplatelet therapy with pain medications and home medications titrated. Patient responded well to treatment and is being discharged home today in a stable condition with and advised to follow-up with PCP in 1 week and also with cardiology in 1 to 2 weeksConsultants: cardiology Med Rec Med RecDischarge meds:Start taking the following new medications:CLOPIDOGREL (PLAVIX) 75 MG TAB 75 MILLIGRAM ORAL DAILY. Qty = 30 No Refills ASPIRIN (ASPIRIN) 81 MG TAB.CHEW 8 1 MILLIGRAM ORAL DAILY. Qty = 30 No Refills CARVEDILOL (COREG) 6.25 MG TAB 6.25 MILLIGRAM ORAL TWICE DAILY WITH MEALS. Qty = 60 No Refills ATORVASTATIN (LIPITOR) 80 MG TAB 80 MILLIGRAM ORAL DAILY. Qty = 30 No Refills ISOSORBIDE MONONITRATE SR (IMDUR) 60 MG TAB.SR.24H 60 MILLIGRAM ORAL DAILY. Qty = 30 No Refills ObjectiveVS/I OLast Documented: Result Date Time Pulse Ox 96 06/25 0900 Pulse 79 06/25 0900 B/P 119/62 06/25 0800 B/P Mean 85 06/25 0800 Temp 97.7 06/25 0747 O2 Delivery Room air 06/25 0705 Resp 14 06/25 0000 FiO2 21 06/24 1944 O2 Flow Rate 1 06/24 1100 24 hour I O ending at 0700: 06/25 0700 06/24 1900 Intake Total 1250.00 450.0 0 Output Total 400 300 Balance 850.00 150.00 Intake, IV 1200.00 200.00 Intake, Oral 50 250 Number 0 Bowel Movements Number Voids 3 Output, Stool 0 Output, Urine 400 300 General appearance: alert, awakeHead/Eyes: atraumatic, normocephalic, PERRLENT: moist mucosal membranesNeck: full range of motion, no JVDCardiovascular: normal capillary refill, normal heart sounds, regular rate rhythm, no heave, no murmurRespiratory: aerating well, souleymane r to auscultation, symmetric expansion, no distressAbdomen: non-tender, normal bowel sounds , soft, no distentionGenitourinary: no bladder distentionMusculoskeletal: normal inspection, no CVA tendernessNeuro/LENS MOLDER: alert, oriented X 3, CNII-XII intact, no motor deficits, no sensory deficitsSkin: dry, intact, normal color, normal temperature, no rash, access site to right grion intact. Pressure dressing C/D/I. Psychiatry: normal affect, normal mood Discharge Instruction s PCPDischarge to: Home/Self CareAdditional Discharge Routines: PCP Follow-Up, Carriage Rider Follow-UpDiet: Diabetic, CardiacDischarge management: greater than 30 mins Follow-up AppointmentsPCP follow-up: PCP: Tyler Morocho Jr, MD PCP follow up timeframe: In 1-2 weeksAttending Physician: Attending Physician: Jamal Red MD Hpkuxlkqgm provider 1: Provider 1: Neno Augustin MD Specialty: CardiologyInterventional Consult follow up timeframe: In 1-2 weeks at 1231 RPT #: [id number] OF REPORT DSDischarge [id number]:54:00L.[id number] v ailable for patient [id number]:32:15 2022-06-24 15:01:00 [id number]:01:00 [facility] ([facility]ENTERCard[facility] Progress NoteREPORT#:[id number] REPORT STATUS: SignedDATE:06/24/22 TIME:1501 PATIENT: PATITO HARDY UNIT #: [id number]#: [id number] [address] [birth year] AGE: 66 SEX: M ATTEND: Jamal Red [facility] AUTHOR: Neno Augustin MD * ALL edits or amendments must be made on the electronic/computer document * SubjectiveHPI:66-year-old gentleman with significant PMH PSH and comorbidties including premature CAD s/p CABG x 4 in 2018 who experienced severe cp / angina sob diaphoresis upper epigastric pain. He states his symptoms started around 5 PM and he woke up and drenched with sweat. This incident occurred again at 11 PM. He also complains of moderate, achy, sharp epigastric pain. He states thissensation is similar to his cardiac issues. Serial EKG's suggested acute STEMI involving the inferior distribution. Code STEMI was activated Free Text Subj NotesFree Text Subj Notes:Feeling betterLes s cp angina Objective GeneralVS/I O:24 hour I O ending at 0700: 06/24 0700 06/23 1900 Intake Total 1300.00 Output Total Balance 1300.00 Intake, IV 1300.00 Patient 77.273 kg Weight Weight Estimated Measurement Method Vital Signs: Date Time Temp Pulse Resp B/P B/P Pulse O2 O2 Flow FiO2 Mean Ox Delivery Rate 06/24 1402 65 16 115/59 83 95 06/24 1300 85 18 99/56 75 96 06/24 1201 101 29 125/103 111 97 06/24 1100 36.4 Nasal 1 cannula 06/24 1100 65 16 105/58 76 95 06/24 1000 61 11 86/49 65 96 06/24 0942 98 Nasal 2 28 cannula 06/24 0900 81 28 156/83 115 98 06/24 080 0 64 14 146/87 110 97 06/24 0700 36.1 Nasal 2 cannula 06/24 0700 72 34 146/91 111 97 06/24 063 0 66 11 167/96 125 98 06/24 0615 [...] 84 33 152/79 106 06/24 0315 69 1 6 162/96 122 06/24 0130 70 19 168/90 116 98 Nasal 2 cannula 06/24 0125 Nasal 2 cannula 06/24 0123 98 Nasal 2 cannula 06/24 0111 36.7 85 20 177/98 124 97 Room air PATIENT WEIGHT: Weight (lb): Weight (oz): Weight (kg): 77.273 Medications:Active Meds + DC'd Last 24 HrsAtorvastatin Calcium (LIPITOR) 80 MG DAILY 1700 PO Aspirin (ECOTRIN) 81 MG DAILY PO Carvedilol (COREG) 6.25 MG Q12HR PO Clopidogrel Bisulfate (Plavix) 75 MG DAILY PO Isosorbide Mononitrate (IMDUR) 60 MG DAILY PO Mupirocin (BACTROBAN NASAL-ADULT ICU/ISSA MRSA PATIENTS) 1 APPLIC 0900,1700 NASAL Ticagrelor (BRILINTA) 0 .STK-MED ONE .ROUTE (DC) Iopamidol (ISOVUE-300) 0 .STK-MED ONE .ROUTE (DC) Diphenhydramine HCl (BENADRYL) 0 .STK-MED ONE .ROUTE (DC) Famotidine (PEPCID) 0 .STK-MED ONE .ROUTE (DC) Methylprednisolone Sodium Succinate (Solu-MEDROL ) 0 .STK-MED ONE .ROUTE (DC) Heparin Sodium (Porcine) (HEPARIN SODIUM) 0 .STK-MED ONE .ROUTE (DC) Heparin Sodium (Porcine) (HEPARIN 1,000 UNITS/NS 500 ML) 1,500 ML .STK-MED ONE IV (DC) Iopamidol (ISOVUE-300) 0 .STK-MED ONE .ROUTE (DC ) Lidocaine HCl (lidocaine HCL) 0 .STK-MED ONE .ROUTE (DC) Midazolam HCl (VERSED) 0 .STK-MED ON E .ROUTE (DC) Nitroglycerin/Dextrose (NITROGLYCERI N 100 MCG/ML DRIP) 250 ML .STK-MED ONE IV (DC) Fentanyl Citrate (SUBLIMAZE) 0 .STK-MED ONE .ROUTE (DC) Aspirin (ASPIRIN CHEWABLE) 324 MG X1ED STA PO (DC) Physical ExamGeneral appearance : alert, awake, oriented, conversational, mental status normalHead/Eyes: atraumatic, EOMI, normocephalic, PERRLAENT: moist mucosal membranesNeck: carotid bruit, JVD present, full range of motion, non-tenderCardiovascular: CV assessment: abnormal S1/S2, ectopy, gallop, S3 present, S4 present Murmur assessment:I/ HSMRespiratory: crackles, rales, shortness of breathAbdomen: no distention, no mass/organomegaly, no pulsatile mass, no reboundLower extremity: LE assessment: edema, abnormal peripheral pulseNeuro/LENS MOLDER: alert, oriented X 3, normal speech, no motor deficits ResultsFindings/Data:Laboratory Tests 06/24 06/04 2 06/24 06/24 0650 0650 0444 0111Chemistry Sodium (134 - 147 mmol/L) 136 138 [...] Glomerular Filtr Rate (>60 estGFR) >=60 max estimate 48 L Glucose (70 - 110 MG/DL) 132 H 122 H Hemoglobin A1c (0.0 - 5.7 % A1C) 5.3 Calcium (8.5 - 10.1 MG/DL) 8.2 L 9.0 Total Creatine Kinase (26 - 192 58Unit/L) Troponin I High Sens (0 - 78 ng/L) 5.9 NT-Pro-B Natriuret Pep (0 - 100 PG/ML) 127 H Triglyceride s (0 - 150 MG/DL) 51 Cholesterol (133 - 200 MG/DL) 136 LDL Cholesterol Measurd (0 - 129 82MG/DL) Non-HDL Cholesterol (<130 mg/dL) 89 HDL Cholesterol (40 - 59 MG/DL) 47 LDL/HDL Ratio (1.48 - 3.22 Avg Ratio) 1.74 Cholesterol/HDL Ratio (0 RATIO) 2.89 Laboratory Tests 06/24 06/24 0217 0111 Coagulation Activated Coag Time (74 - 125 SEC) 267 H D-Dimer (215 - 500 ng/mLFEU ) 261 Laboratory Tests 06/24 06/24 0444 0111 Hematology WBC (3.5 - 11.0 K/mm3) 9.9 9.5 RBC (4.70 - 6.10 M/mm3) 4.69 L 5.09 Hgb (12.3 - 15.9 G/DL) 14.7 16.0 H Hct (35.8 - 46.7 %) 43.5 47.9 H MCV (86.3 - 98.9 Fl) 92.8 94.1 MCH (28.9 - 34. 4 pg) 31.3 31.4 MCHC (32.1 - 34.5 G/DL) 33.8 33.4 RDW (11.5 - 14.5 SD) 12.8 12.6 Plt Count (150 - 450 K/mm3) 216 237 MPV (7.0 - 9.6 fL) 10.00 H 9.90 H Neut % (Auto) (40 - 76 %) 93.4 H Lymph % (Auto) (20.5 - 51.1 %) 4.1 L [place] % (Auto) (1.7 - 9.3 %) 1.5 L Eos % (Auto) (0.0 - 6.0 %) 0.1 Bas o % (Auto) (0.0 - 2.0 %) 0.6 Neut # (Auto) (1.8 - 7.6 K/mm3) 9.2 H Lymph # (Auto) (0.6 - 3.0 K/mm3 ) 0.4 L [place] # (Auto) (0.2 - 1.5 K/mm3) 0.2 Eos # (Auto) (0.0 - 0.4 K/mm3) 0.0 Baso # (Auto) (0.0 - 0.2 K/mm3) 0.1 Abs Immat Gran (auto) (0.00 - 0.0 3 x10 3/uL) 0.03 Add Manual Diff (CRITERIA DIFF/SCN) NO Immature Gran % (0.0 - 5.0 %) 0.3 Nucleated RBC % (0.0 - 1.0 /100WBC%) 0.0 Radiology data:Recent Impressions:RADIOLOGY - XR CHEST 1 V 06/24 0135 Report Impression - Status: SIGNED Entered: 06/24/2022143 IMPRESSION: Mild left basilar subsegmental atelectasis. Limited study.Impression By: [email or web address] - Janet Queen M.D. Diagnosis, Assessment PlanConsultants: cardiology Free Text DxA P NotesFree Text DxA P Notes:ASSESSMENT: Acute STEMI - inferior distribution - s/p successful primary PCI with PTCA of red devil RCA and DEStenting of the SVG to the RPDA Acute on chronic systolic and diastolic congestive heart failure - HFrEF 45% Coronary atherosclerotic disease - s/p CABG x 4 in 2018 Ischemic cardiomyopathy Metabolic syndrome with HHD dyslipdemia insulin resistance PLAN: Otimize cardiac medical management s/p successful primar y PCI with PTCA of red devil RCA and DEStenting of th e SVG to the RPDA at 1101 RPT #: [id number] OF REPORT PRProgress [id number]:01:00L.[id number] rebeca able for patient [id number]:02:2022-06-24 08:43:00 [id number]:43:00 [facility] ([facility])Pulmonary Consultation NoteREPORT#:[id number] REPORT STATUS : SignedDATE:06/24/22 TIME:0843 PATIENT: PATITO HARDY UNIT #: [id number]#: [id number] [address] AGE: 66 SEX: M ATTEND: Jamal Red [facility] AUTHOR: Arnie Candelario MD * ALL edits or amendments must be made on the electronic/computer document * History of Presen t Illness HPIHPI:66-year-old with history of coronary disease status post CABG in 2018Presented with chest pain, EKG showed STEMI, STEMI code activated, status post cardiac cath with PCIIn the ICU overnight, acceptable hemodynamic profile, minimal oxygen requirementN o chest painNo fever or chills History - Adult longitudinalAdditional medical history:Coronary artery diseaseAdditional surgical history:CABGAdditional family history:Not contributory to this problemSmoking status for patients 13 years old or older: Unknown,if ever smokedMedications:Current Hospital Medications:Antihistamine Drugs Sig/Jenniffer Start time Last Medication Dose Route Stop Time Status Admin Diphenhydramine HCl 0 .STK-MED ONE 06/24 0149 DC (BENADRYL) .ROUTE Blood Formation,Coagulation Sig/Jenniffer Start time Last Medication Dose Route Stop Time Status Admin Clopidogrel Bisulfate 75 MG DAILY 06/24 0900 AC (Plavix) PO 07/24 0859 Ticagrelor 0 .STK-MED ONE 06/24 0243 DC (BRILINTA) .ROUTE Heparin Sodium 0 .STK-MED ONE 06/24 145 DC (Porcine) .ROUTE (HEPARIN SODIUM) Heparin Sodium 1,500 ML .STK-ME D ONE 06/24 145 DC (Porcine) IV (HEPARIN 1,000 UNITS/ NS 500 ML) Cardiovascular Drugs Sig/Jenniffer Start time Last Medication Dose Route Stop Time Status Admin Atorvastatin Calcium 80 MG DAILY 1700 06/24 1700 AC (LIPITOR) PO 07/24 165 Carvedilol 6.25 MG Q12HR 06/24 09 AC (COREG) P O 07/24 0859 Isosorbide 60 MG DAILY 06/24 09 AC Mononitrate PO 07/24 08 (IMDUR) Lidocaine HCl 0 .STK-MED ONE 06/24 014 DC (lidocaine HCL) .ROUTE Nitroglycerin/ 250 ML .STK-MED ONE 06/24 014 DC Dextrose IV (NITROGLYCERIN 100 MCG/ML DRIP) Central Nervous System Agents Sig/Jenniffer Star t time Last Medication Dose Route Stop Time Status Admin Aspirin 81 MG DAILY 06/24 899 AC (ECOTRIN ) PO 07/24 858 Midazolam HCl 0 .STK-MED ONE 06/24 014 DC (VERSED) .ROUTE Fentanyl Citrate 0 .STK-MED ONE 06/24 014 DC (SUBLIMAZE) .ROUTE Aspirin 324 MG X1ED STA 06/24 0110 DC 06/24 (ASPIRIN CHEWABLE) PO 06/24 011 0118 Diagnostic Agents Sig/Jenniffer Start time Last Medication Dose Route Stop Time Status Admin Iopamidol 0 .STK-ME D ONE 06/24 0233 DC (ISOVUE-300) .ROUTE Iopamidol [...] Stop Time Status Admin Mupirocin 1 APPLIC 0900,0 06/24 09 AC (BACTROBAN NASAL- NASAL 06/28 170 ADULT ICU/ISSA MRSA PATIENTS) Allergies:Coded Allergies:Penicillins (Severe, SWELLING 06/24/22)iodine (Severe, SWELLING 06/24/22) Review of SystemsAll systems rev neg: except as marked Objective Physical ExamVitals:Last Documented: Result Date Time Pulse Ox 98 06/24 629 B/P 167/96 06/24 629 B/P Mean 125 06/24 629 Pulse 66 06/24 629 Resp 11 06/24 629 FiO2 28 06/24 405 O2 Delivery Nasal cannula 06/24 405 O2 Flow Rate 2 06/24 405 Tem p 36.3 06/24 0337 Vascular pulse assessment:palpated: R dorsalis pedis, L dorsali s pedis, R radial, L radial. ResultsResults: x-ray personally reviewed Free Text Obj NotesFree Text Obj Notes:General appearance: alert, awake, orientedHead/Eyes: atraumatic, normocephalic, PERRLANeck: full range of motion, non-tender, normal thyroidCardiovascular: normal heart sounds, normal S1/S2, regular rate rhythmRespiratory/chest: aerating well, clear to auscultation, symmetric expansionAbdomen: soft, non-tender, normal bowel soundsGenitourinary: no bladder distention, no flank painExtremities: No edema, moves all, normal capillary refill, no calf tendernessMusculoskeletal: full range of motion, normal inspection, painless range of motion, straight leg raise negSkin: dry, intact, normal color Diagnosis, Assessment Plan Diagnosis, Assessment PlanProblem List/A P: 1. STEMI (ST elevation myocardial infarction) 2. Acute on chronic diastolic CHF (congestive heart failure) 3. Metabolic syndrome 4. JOAN (acute kidney injury) Consultants: cardiology Free Text DxA P NotesFree Text DxA P Notes:Status post PCIAcceptable hemodynamic profileOn coronary artery disease regimenTransfer to telemetryDischarge planning Electronically Joy d by Arnie Candelario MD on 06/24/22 at 0844 RPT #: [id number] OF REPORT [id number]:43:00L.[id number] 035AVAvailable for patient [id number]:45:12 2022-06-24 04:48:00 [id number]:48:00 [facility] ([facility])Hospitalist History PhysicalREPORT#:[id number] REPORT STATUS: SignedDATE:06/24/22 TIME:447 PATIENT: PATITO HARDY UNIT #: [id number]#: [id number] [facility]DOB: [birth year] AGE: 66 SEX: M ATTEND: Jamal Red MDA AUTHOR: Anisha Pendleton I APRNNP * ALL edits or amendments must be made on the electronic/computer document * Anisha Pendleton I 06/24/22 0448:History of Present Illness HPIChie f complaint:s/p Heart CathPCP:PCP: Tyler Morocho Jr, MD HPI:Patito Hardy is a 66-year-old male wit h history of CAD with quadruple bypass 2018 who presented to the ED with diaphoresis and upper epigastric pain/chest discomfort. Patient report s that his neighbour had noticed about 2 days ago thathe wasn't looking well and mentioned to him. But his symptoms started around 5PM yesterday when he woke up and drenched with sweat. This incident occurred again at 11 PM. He also complains of moderate, achy, sharp epigastric pain. Hestates this sensation is similar to his cardiac issues. Denies any fever, chills, shortness of breath, nausea or vomiting. Brought in by EMS with concerns for STEMI. Serial EKG's suggested acute STEMI involving the inferior distribution. Code STEMI was activated and he wa s taken to the laborer concrete p[facility] and perfomed heart cath with PCI with PTCA of red devil RCA and DEStenting of the SVG to the RPDA by Dr Demetria freedman 06/24/22 Informant/historian: patient History Social HistorySmoking status for patients 13 years old or older: Unknown,if ever smoked Medication/Allergy-Vaccine HxAllergies:Coded Allergies:Penicillins (Severe, SWELLING 06/24/22)iodine (Severe, SWELLING 06/24/22) Review of SystemsMusculoskeletal:Reports: other (generalized weakness). All systems rev neg: except as noted OBJECTIVEVS/I O:Vital Signs Date Temp Pulse Resp B/P B/P Mean Pulse Ox FiO2 06/24 97.3-98.0 64-85 10-33 112-177/63-98 84-124 96-98 28 Last Documented: Result Date Time Pulse Ox 9 8 06/24 0545 B/P 133/74 06/24 0545 B/P Mean 93 06/24 0545 Pulse 64 06/24 0545 Resp 10 06/24 054 5 FiO2 28 06/24 0406 O2 Delivery Nasal cannula 06/24 0406 O2 Flow Rate 2 06/24 0406 Temp 97.3 06/24 0337 24 hour I O ending at 0700: 06/24 070 0 06/23 1900 Intake Total Output Total Balance Patient 77.273 kg Weight Weight Estimated Measurement Method Patient Weight and BMI Weight (kg): 77.273 BMI: 23.1 Medications:Active Meds + DC'd Last 24 HrsAtorvastatin Calcium (LIPITOR) 8 0 MG DAILY 1700 PO Aspirin (ECOTRIN) 81 MG DAILY P O Carvedilol (COREG) 6.25 MG Q12HR PO Clopidogrel Bisulfate (Plavix) 75 MG DAILY PO Isosorbide Mononitrate (IMDUR) 60 MG DAILY PO Mupirocin (BACTROBAN NASAL-ADULT ICU/ISSA MRSA PATIENTS) 1 APPLIC 0900,1700 NASAL Ticagrelor (BRILINTA) 0 .STK-MED ONE .ROUTE (DC) Iopamidol (ISOVUE-300) 0 .STK-MED ONE .ROUTE (DC) Diphenhydramine HCl (BENADRYL) 0 .STK-MED ONE .ROUTE (DC) Famotidine (PEPCID) 0 .STK-MED ONE .ROUTE (DC) Methylprednisolone Sodium Succinate (Solu-MEDROL ) 0 .STK-MED ONE .ROUTE (DC) Heparin Sodium (Porcine) (HEPARIN SODIUM) 0 .STK-MED ONE .ROUTE (DC) Heparin Sodium (Porcine) (HEPARIN 1,000 UNITS/NS 500 ML) 1,500 ML .STK-MED ONE IV (DC) Iopamidol (ISOVUE-300) 0 .STK-MED ONE .ROUTE (DC ) Lidocaine HCl (lidocaine HCL) 0 .STK-MED ONE .ROUTE (DC) Midazolam HCl (VERSED) 0 .STK-MED ON E .ROUTE (DC) Nitroglycerin/Dextrose (NITROGLYCERI N 100 MCG/ML DRIP) 250 ML .STK-MED ONE IV (DC) Fentanyl Citrate (SUBLIMAZE) 0 .STK-MED ONE .ROUTE (DC) Aspirin (ASPIRIN CHEWABLE) 324 MG X1ED STA PO (DC) General appearance: alert, awake, oriented, no acute distress, no respiratory distressHead/Eyes: atraumatic, normocephalic, PERRLENT: moist mucosal membranesNeck: full range of motion, no JVDCardiovascular: normal capillary refill, normal heart sounds, regular rate rhythm, no heave, no murmurRespiratory: aerating well, souleymane r to auscultation, symmetric expansion, no distressAbdomen: non-tender, normal bowel sounds , soft, no distentionGenitourinary: no bladder distention Vascular pulse assessment:palpated: R dorsalis pedis, L dorsalis pedis, R radial, L radial. Musculoskeletal: normal inspection, no CVA tendernessNeuro/LENS MOLDER: alert, oriented X 3, CNII-XII intact, no motor deficits, no sensory deficitsSkin: dry, intact, normal color, normal temperature, no rash, access site to right grion intact. Pressure dressing C/D/I. Psychiatry: normal affect, normal mood ResultsFindings/Data:Laboratory Tests: 06/24 06/24 06/24 0444 0217 0111Chemistry Sodium (134 - 147 mmol/L) 136 138 Potassium (3.4 - 5.0 mmol/L) 4.3 4.4 Chloride (100 - 108 mmol/L) 108 105 Carbon Dioxide (21 - 32 mmol/L) 27 31 Anion Gap (4.0 - 15.0 GAP calc) 1.0 L 2.0 L BUN (7 - 18 MG/DL) 22 H 27 H Creatinine (0.8 - 1.3 MG/DL) 1. 1 1.6 H Glomerular Filtr Rate (>60 estGFR) >=60 ma x estimate 48 L Glucose (70 - 110 MG/DL) 132 H 122 H Calcium (8.5 - 10.1 MG/DL) 8.2 L 9.0 Total Creatine Kinase (26 - 192 Unit/L) 58 Troponin I High Sens (0 - 78 ng/L) 5.9 NT-Pro-B Natriuret Pep (0 - 100 PG/ML) 127 HCoagulation Activated Coag Time (74 - 125 SEC) 267 H D-Dimer (215 - 50 0 ng/mLFEU) 261Hematology WBC (3.5 - 11.0 K/mm3) 9.9 9.5 [...] H Neut % (Auto) (40 - 76 % ) 93.4 H Lymph % (Auto) (20.5 - 51.1 %) 4.1 L [place] % (Auto) (1.7 - 9.3 %) 1.5 L Eos % (Auto) (0.0 - 6.0 %) 0.1 Baso % (Auto) (0.0 - 2.0 %) 0.6 Neut # (Auto) (1.8 - 7.6 K/mm3) 9.2 H Lymph # (Auto) (0.6 - 3.0 K/mm3) 0.4 L [place] # (Auto) (0.2 - 1.5 K/mm3) 0.2 Eos # (Auto) (0.0 - 0.4 K/mm3) 0.0 Baso # (Auto) (0.0 - 0.2 K/mm3) 0.1 Abs Immat Gran (auto) (0.00 - 0.03 x10 3/uL) 0.03 Add Manual Diff (CRITERIA DIFF/SCN) NO Immature Gran % (0.0 - 5.0 %) 0.3 Nucleated RBC % (0.0 - 1.0 /100WBC%) 0.0 Laboratory Tests 06/24/22 0444:[Embedded Image Not Available] 06/24/22 0111:[Embedded Image Not Available] Radiology data:Recent Impressions:RADIOLOGY - XR CHEST 1 V 06/24 0135 Report Impression - Status: SIGNED Entered: 06/24/2022 0144 IMPRESSION: Mild left basilar subsegmental atelectasis. Limited study.Impression By: Angel - Janet Queen M.D. Results: labs reviewed, vital signs reviewed, vital signs stable Diagnosis, Assessment PlanProblem List/A P: 1. STEMI (ST elevation myocardial infarction) 2. Status post left heart catheterization by percutaneous approach 3. Acute on chronic diastolic CHF (congestive heart failure) 4. Metabolic syndrome 5. JOAN (acute kidney injury) Free Text A P: Acut e STEMI (ST elevation myocardial infarction)Status post left heart catheterization by percutaneous approachHx of CAD with quadrupple CABG 2018 - PC I with PTCA of red devil RCA and DEStenting of the SV G to the RPDA by Dr Liu 06/24/22- monitor under continuous telemetry- start DAPT with ASA + Plavix per cardiology. start statin, and BB. Add low dose Imdur due to refractory atypical chest/back pain. -obtain echo- Cardiology following-Telemetry monitoring Acute on chronic systolic and diastolic congestive heart failure Ischemic cardiomyopathy- HFrEF 45%- further managment same as above- optimize cardiac medica l management Coronary atherosclerotic disease - s/ p CABG x 4 in 2018- DEStenting of the SVG to the RPDA by Dr Augustin on 06/24/22- DAPT with ASA + Plavix Metabolic syndrome with HHD dyslipdemia insulin resistance- borderline elevated glucose level- check A1C and lipid panel at AM- resume statin- lifestyle modification JOAN (acute kidney injury) (HCC)- admitted with Cr 1.6, BUN 27, EGF R 28, improving- Likely due to prerenal state; cardiorenal, hypoxia, hypoperfusion.- continue 1 L NS at 100cc/h- avoid nephrotoxin where possible- monitor renal function with daily labs- renally dose meds DVT prophylaxis: SCDs, Plavix + ASA GI prophylaxis: pepcidDisposition Anticipated: Home with family support vs rehabTime Spent on Patien t Care, Coordination and Counselin min. Code Status: Full code. Anisha Pendleton APRN Consultants: cardiologyPlan discussed with: patientTime spent: Time spent on patient care (minutes): 45Code status: full code Jamal Red 06/24/22 1741:Attestations Physician AttestationAgree w/findings plan:Appreciate note from NPAgree with the history and physical findingsLab works notedImaging noted as wellFindings were discusse d with the DAMION and Staff at 0753Electronically Signed by Jamal Red MD o n 06/24/22 at 1742 RPT #: [id number] OF REPORT HPHistory and physical [id number]:48:00L.[id number] 5 AVAvailable for patient [id number]:53:31 2022-06-24 03:02:00 [id number]:02:00 [facility] ([facility])Cardiology ConsultationREPORT#:[id number] REPORT STATUS: SignedDATE:06/24/22 TIME:0302 PATIENT: PATITO HARDY UNIT #: [id number]#: [id number] [address] [birth year] AGE: 66 SEX: M ATTEND: Jamal Red [facility] AUTHOR: Neno Augustin MD * ALL edits or amendments must be made on the electronic/computer document * History of Presen t Illness HPIHPI:66-year-old gentleman with significant PMH PSH and comorbidties including premature CAD s/p CABG x 4 in 2018 who experienced severe cp / angina sob diaphoresis upper epigastric pain. He states his symptoms started around 5 PM and he woke up and drenched with sweat. This incident occurred again at 11 PM. He also complains of moderate, achy, sharp epigastric pain. He states thissensation is similar to his cardiac issues. Serial EKG's suggested acute STEMI involving the inferior distribution. Code STEMI was activated History - Adult longitudinalSmoking status for patients 13 years old or older: Unknown,if ever smokedAllergies:Coded Allergies:Penicillins (Severe, SWELLING 06/24/22)iodine (Severe, SWELLING 06/24/22) Review of SystemsConstitutional:fatigue, generalized weakness, malaise. Skin:diaphoresis, ecchymosis, itching, swelling. Allergy/Immun:allergic reaction, hives, rhinorrhea, sneezing. Eyes:Denies: redness, discharge, visual loss/blurred, itching, diplopia, eye pain, photophobia, swelling. ENT:nasal congestion, sinus problem, sore throat. Respiratory:Reports: FRIEDMAN (dyspnea on exertion), non productive cough, SOB. Cardiovascular:Reports: chest pain, dyspnea on exertion, edema, orthopnea, parox noctural dyspnea, unstable angina. GI:Reports: abdominal pain, GERD. :Denies: dysuria, flank pain, frequency, hematuria, nocturia, penile discharge , penile lesion, testicular pain, testicular swelling, urgency, urinary retention. Musculoskeletal:arthritis, joint pain. Heme:petechiae. Endocrine:Denies: cold intolerance, heat intolerance, polydipsia, polyphagia, polyuria, weight gain, weight loss. Neuro:Denies: confusion, seizure, slurred speech , syncope, unable to speak. Psych:anxiety, stress. Objective GeneralVS/I O:Vital Signs: Date Time Temp Pulse Resp B/P B/P Pulse O2 O2 Flow FiO2 Mean Ox Delivery Rate 06/24 0130 70 19 168/90 11 6 98 Nasal 2 cannula 06/24 0125 Nasal 2 cannula 06/24 0123 98 Nasal 2 cannula 06/24 0111 36.7 85 20 177/98 124 97 Room air 24 hour I O ending at 0700: 06/24 0700 06/23 1900 Intake Total Output Total Balance Patient 77.273 kg Weight Weight Estimated Measurement Method PATIENT WEIGHT: Weight (lb): Weight (oz): Weight (kg): 77.273 Physical ExamGeneral appearance: alert, awake, oriented, conversational, mental status normalHead/Eyes: atraumatic, EOMI, normocephalic , PERRLAENT: moist mucosal membranesNeck: carotid bruit, JVD present, full range of motion, non-tenderCardiovascular: CV assessment: abnorma l S1/S2, ectopy, gallop, S3 present, S4 present Murmur assessment:I/ HSMRespiratory: crackles, rales, shortness of breathAbdomen: no distention , no mass/organomegaly, no pulsatile mass, no reboundLower extremity: LE assessment: edema, abnormal peripheral pulseNeuro/LENS MOLDER: alert, oriented X 3, normal speech, no motor deficits ResultsFindings/Data:Laboratory Tests 06/24 011 1 Chemistry Sodium (134 - 147 mmol/L) 138 Potass[place] m (3.4 - 5.0 mmol/L) 4.4 Chloride (100 - 108 mmol/L) 105 Carbon Dioxide (21 - 32 mmol/L) 31 Anion Gap (4.0 - 15.0 GAP calc) 2.0 L BUN (7 - 18 MG/DL) 27 H Creatinine (0.8 - 1.3 MG/DL) 1.6 H Glomerular Filtr Rate (>60 estGFR) 48 L Glucose (70 - 110 MG/DL) 122 H Calcium (8.5 - 10.1 MG/DL ) 9.0 Total Creatine Kinase (26 - 192 [...] (7.0 - 9.6 fL) 9.90 H Radiology Data:Recent Impressions:RADIOLOGY - XR CHEST 1 V 06/24 134 Report Impression - Status: SIGNED Entered: 06/24/2022143 IMPRESSION: Mild left basilar subsegmental atelectasis. Limited study.Impression By: Angel - Janet Queen M.D. Diagnosis, Assessment Plan Free Text DxA P NotesFree Text DxA P Notes:ASSESSMENT : Acute STEMI - inferior distribution - s/p successful primary PCI with PTCA of red devil RCA and DEStenting of the SVG to the RPDA Acute on chronic systolic and diastolic congestive heart failure - HFrEF 45% Coronary atherosclerotic disease - s/p CABG x 4 in 2018 Ischemic cardiomyopathy Metabolic syndrome with HHD dyslipdemia insulin resistance PLAN: s/p successful primary PCI with PTCA of red devil RCA and DEStenting of the SVG to the RPDA optimize cardiac medical management at 1058 RPT #: [id number] OF REPORT [id number]:02:00L.[id number] 020AVAvailable for patient [id number]:58:21 2022-06-24 02:57:00 [id number]:57:00 [facility] ([facility] Operative NoteREPORT#:[id number] REPORT STATUS: SignedDATE:06/24/22 TIME:0257 PATIENT: PATITO HARDY UNIT #: [id number]#: [id number] [address] [birth year] AGE: 66 SEX: M ATTEND: Jamal Red [facility] AUTHOR: Neno Augustin MD * ALL edits or amendments must be made on the electronic/computer document * Operative Report Operative NoteNote: Procedure Date: 06/24/2022 Procedures performed:1. Left heart / cardiac catheterization, selective diagnostic coronary angiograms, and left ventriculogram, LEFT INTERNAL MAMMARY ARTERY (JOHNSON) graft and SAPHENOUS VEIN BYPASS GRAFT (SVG) angiograms2. Percutaneous coronary revascularization of the red devil RIGHT POSTERIOR DESCENDING ARTERY (RPDA)) distribution by primary PTCA and drug-eluting stentingof the distal portion of the SVG to the RPDA across the distal anastomosis into the mid RPDA using a 2.5 x 18 mm Xience stent Indication:Acute inferior STEMI with known significant CAD s/p CABG x 4 in 2018 with progressive unstable angina Procedure details:Following informed consent and detailed discussion of procedural risks and benefits with the patient that preceded time-out session as [facility] then followed by adequate moderate sedation induction and local anesthesia administration, diagnostic cardiac catheterization with selective coronary angiograms, bypass graft angiograms, and left ventriculogram performed via the right femoral arterial approach through a 5 Fr sheath using 5 Fr JL4 and XB3.5 guding catheters were successfully obtained. Following diagnostic angiograms, decision was made to proceed with percutaneous coronary revascularization of the red devil RIGHT CORONARY ARTERY distribution. The proximal to mid portions of the previously occlude RCA was successfully crossed using a 0.014" Whisper wire. Serial PTCA was performed using a 2.5 x 15mm Emerge balloon. After flow wa s restored, the distal RCA was also noted to beoccluded at the distal anastomosis of the SVG to the RPDA. Attention was then turned to SVG to the RPDA. The Whisper wire was then redirected t o successfullycrossed the distal anastomosis into the RPDA. Follolwing predilatation perfomedusing the 2.5 x 15 mm Emerge balloon, a 2.5 x 18 mm Xience stent was successfully deployed covering the distal anastomosis spanning from the distal SVG into the mid RPDA. Follow-up angiograms demonstrated an excellent angiographic results and no residual stenosis within the stented segment. 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 Results: I. Diagnostic angiography demonstrated moderate to severe diifuse coronary calcification with significant red devil three vessel coronary artery and bypass grafts atherosclerotic disease in a right dominant coronary distribution 1. LMCA -- 20-30% scattered plaques2. LAD -- diffusely diseased with scattered more focal 70-95% stenoses throughout extending beyond the bypass graft distal anastomosis.3. LCX -- 100% total chronic occlusion in the proximal portion. All obtuse marginal branches (OMB) were small in caliber with diffuse disease was diffuse disease in The SVG bypass to a proximal OMB was patent but the red devil OMB was atretic with diffuse disease beyond the distal anastomosis. In addition, The JOHNSON bypass appeared to attach to another OMB wa s patent but the red devil OMB was also atretic and subtottally occluded beyond the distal anastomosis. 4 RCA -- 100% chronic total occlusion in the distal portion. The SVG bypass to the RIGHT POSTERIOR DESCENDING ARTERY (RPDA) was patent with subtotal occlusion at the distal anastomosis. II. Left ventriculography Left ventriculogram demonstrated mild left ventricula r systolic dysfunction. Estimated LVEF was 45%. LVEDP was 18-20 mmHg. III. Percutaneous coronary intervention and revascularization: Primary percutaneous coronary revascularization of the RIGHT CORONARY ARTERY proximal and mid distribution was performed using a 2.5 x 15 mm Emerge balloon. Primary percutaneous coronary revascularization of the RIGHT POSTERIOR DESCENDING ARTERY (RPDA) distribution was successfully achieved by primary PTCA followed b y drug-eluting stenting of the distal portion of the SVG to the RPDA across the distal anastomosi s into the mid RPDA using a 2.5 x 18 mm Xience stentwith excellent angiographic results as described above. KASIE 3 flow was successfully restored from KASIE 2 flow. The result was discussed and presented in details with the patient and family. All questions and concerns were addressed satisfactorily. at 1104 RPT #: [id number] OF REPORT OPOperative [id number]:57:00L.[id number] a ilable for patient [id number]:04:42 2022-06-24 01:25:00 [id number]:25:00 [facility] ([facility])EMERGENCY PROVIDER REPORTREPORT#:[id number] REPORT STATUS: SignedDATE:06/24/22 TIME:0125 PATIENT: PATITO HARDY UNIT #: [id number]#: [id number] ROOM/BED: .MVL80-8TSI: 57 AGE: 66 SEX: M PCP PHYS: Tyler Morocho Jr MDSERVICE AUTHOR: Sydney De Leon MD * ALL edits or amendments must be made on the electronic/computer document * HPI-Chest Pain 40 and Over Free Text HPI NotesFree Text HPI [id number] male with history of quadruple bypass presents with diaphoresis and upper epigastric pain/chest discomfort. He states his symptoms started around 5PM and he woke up and drenched with sweat. This incident occurred agai n at 11 PM. He also complains of moderate, achy, sharp epigastric pain. He states thissensation i s similar to his cardiac issues. Denies any fever, chills, shortnessof breath, nausea or vomiting. Brought in by EMS with concerns for STEMI GeneralConfirmed Patient YesInitial Greet Date/Time 06/24/22 010 PresentationChief Complaint Chest pain, Diaphoresis, Shortness of breathSudden in Onset? YesOnset Occurred Today, Hours agoSymptom Duration Since onset, Waxes and wanes, Lasting hoursProgression since Onset Gradually worsening)( Migration/Movement None Risk-Chest Pain 40 and Over Risk Stratification) ( Coronary Artery Disease Risk factors reviewed, Hyperlipidemia, Hypertension)( Thoracic Aortic Dissection Risk factors reviewed, Hypertension)( Pulmonary Embolism Risk factors reviewed)( AMI-Aspirin Aspirin Last 24 Hrs 324 mg, By EMS)( HEART for MACE )( HEART for MACE Response Value History Mod index of suspicion [address]-depression 2 Age Age 45 - 65 1 Risk Factors for CAD 3+ CAD risk factors 2 Troponin < or = to NL troponin 0 Total 6 Review of Systems ROS StatementsAll systems rev neg except as marked. Basic Review of SystemsBasic ROS EYES: No redness, ENT: No sore throat, : N o dysuria/frequency, HEM: No bleeding/bruising Focused Review of SystemsNeurologicReports: Numbness (L arm), Tingling. Past Medical History - AdultStated Complaint CHEST PAINAllergiesCoded Allergies:Penicillins (Severe, SWELLING 06/24/22)iodine (Severe, SWELLING 06/24/22) Calculated Suicide Risk (nurs) No riskSmoking status for patients 13 years old or older: Unknown,if ever smoked Physical Exam Vital SignsVital SignsFirst Documented: Result Date Time Pulse Ox 97 06/24 110 B/P 177/98 06/24 011 1 B/P Mean 124 06/24 110 O2 Delivery Room air 06/24 110 Temp 36.7 06/24 110 Pulse 85 06/24 110 Resp 20 06/24 110 O2 Flow Rate 2 06/24 122 Last Documented: Result Date Time Pulse Ox 98 06/24 129 B/P 168/90 06/24 129 B/P Mean 116 06/24 129 O2 Delivery Nasal cannula 06/24 129 O2 Flow Rate 2 06/24 129 Pulse 70 06/24 129 Resp 19 06/24 129 Temp 36.7 06/24 110 Review of Vital Signs Unavailable Focused PEGeneral/Const General/Const Awake, Alert Distress/Hydration Distress mild. Resp/Chest Respiratory/Chest Atraumatic, Breath sounds NL, Breath sounds = bilat, No respiratory distressCardiovascular Cardiovascular Heart rate NL, Regular rhythm, Heart sounds NLAbdomen/GI Abdomen/GI Atraumatic, Soft, Non-tender Interpretation Diagnostics Lab Result s InterpretationResultsLaboratory Tests 06/24/22110:[Embedded Image Not Available]Laboratory Tests: 06/24 Chemistry Sodium (134 - 147 mmol/L) 138 Potassium (3.4 - 5.0 mmol/L) 4.4 Chloride (100 - 108 mmol/L) 105 Carbon Dioxide (21 - 32 mmol/L) 31 Anion Gap (4. 0 - 15.0 GAP calc) 2.0 L BUN (7 - 18 MG/DL) 27 H Creatinine (0.8 - 1.3 MG/DL) 1.6 H Glomerular Filtr Rate (>60 estGFR) 48 L Glucose (70 - 110 MG/DL) 122 H Calcium (8.5 - 10.1 MG/DL) 9.0 Tota l Creatine Kinase (26 - 192 Unit/L) 58 Troponin I High Sens (0 - 78 ng/L) 5.9 NT-Pro-B Natriuret Pep (0 - 100 PG/ML) 127 H Coagulation Activated Coag Time (74 - 125 SEC) 267 H D-Dimer (215 - 50 0 ng/mLFEU) 261 Hematology WBC (3.5 - 11.0 K/mm3) 9.5 RBC (4.70 - 6.10 M/mm3) 5.09 Hgb (12.3 - 15.9 G/DL) 16.0 H Hct (35.8 - 46.7 %) 47.9 H MCV (86.3 - 98.9 Fl) 94.1 MCH (28.9 - 34.4 pg) 31.4 MCHC (32.1 - 34.5 G/DL) 33.4 RDW (11.5 - 14.5 SD ) 12.6 Plt Count (150 - 450 K/mm3) 237 MPV (7.0 - 9.6 fL) 9.90 H Recent Impressions:RADIOLOGY - XR CHEST 1 V 06/24 0135 Report Impression - Status: SIGNED Entered: 06/24/2022 014 IMPRESSION: Mild left basilar subsegmental atelectasis. Limited study.Impression By: DelaneyMALauri - Janet Queen M.D. Lab Imaging StatementLaboratory radiographic studies reviewe d and considered in the medical decision-making. ECG #1 InterpretationDate 06/24/22Time 0107Interpreted by and reviewed by me, Independently interpretedRate 69ECG Q-T-ST - ID STEMI inferior wall, ST depression - lat Re-Evaluation MDM Free Text MDM NotesFree Text MDM NotesCode STEMI activated Differential diagnosis: NSTEMI, STEMI, pneumonia, angina, ACS , costochondritis, asthma exacerbation, pulmonary embolism, GERD/gastritis Final diagnoses: STEMI Comorbidities/restratification: Quadruple bypass , hypertension, CAD--Acuity of presenting problems : Acute severe chest pain History obtained from independent source: EMS External records reviewed: EKG Discussion of management/consultants: -- Discussed management of the patient with hospitalist and they agree and willadmit patient-- Discussed case with Specialist: They agree with management plan and will see patient-spoke to nuclear physicist and will present for cardiac catheterization Independent interpretation of studies by Dr. De Leon: EKG independently reviewed and interpreted Diagnostic testing/prescription medication considered (not performed): None Social determinants of health that affect care: None Shared decision making: Discussion with patient on work-up and disposition basedon presenting symptoms/complaints. Admitted to the ICU after catheterization ED CourseMedication(s) OrderedMedication(s) Ordered:Antihistamine Drugs Sig/Jenniffer Start time Last Medication Dose Route Stop Time Status Admin Diphenhydramine HCl 0 .STK-MED ONE 06/24 0149 DC .ROUTE Blood Formation,Coagulation Sig/Jenniffer Start time Last Medication Dose Route Stop Time Status Admin Heparin Sodium 0 .STK-MED ONE 06/24 145 DC (Porcine) .ROUTE Heparin Sodium 1,500 ML .STK-ME D ONE 06/24 145 DC (Porcine) IV Cardiovascular Drugs Sig/Jenniffer Start time Last Medication Dose Route Stop Time Status Admin Lidocaine HCl 0 .STK-MED ONE 06/24 145 DC .ROUTE Nitroglycerin/ 250 ML .STK-MED ONE 06/24 145 DC Dextrose IV Central Nervous System Agents Sig/Jenniffer Start rory e Last Medication Dose Route Stop Time Status Admi n Midazolam HCl 0 .STK-MED ONE 06/24 145 DC .ROUTE Fentanyl Citrate 0 .STK-MED ONE 06/24 014 5 DC .ROUTE Aspirin 324 MG X1ED STA 06/24 109 DC 06/24 PO 06/24 110 0118 Diagnostic [...] APPLIC 0900,1700 06/24 0900 AC NASAL 06/28 1701 Patient Discharge Departure Vital Signs/ConditionVital SignsFirst Documented: Result Date Time Pulse Ox 97 06/24 011 B/P 177/98 06/24 011 B/P Mean 124 06/24 011 O2 Delivery Room air 06/24 110 Temp 36.7 06/24 011 Pulse 85 06/24 0111 Resp 20 06/24 011 1 O2 Flow Rate 2 06/24 0123 Last Documented: Resul t Date Time Pulse Ox 98 06/24 0130 B/P 168/90 04/ 2 0130 B/P Mean 116 06/24 0130 O2 Delivery Nasal cannula 06/24 129 O2 Flow Rate 2 06/24 013 Pulse 70 06/240 Resp 19 06/24 129 Temp 36.7 06/24 0111 All vital signs available at the time of this entry have been reviewed. Clinical ImpressionClinical ImpressionPrimary Impression: STEMI (ST elevation myocardial infarction) Disposition DecisionAdmit Admit Physician Name Jamal Red MD Admit Physician Hospitalist Request Time 213 Request Date 06/24/22 )( Admission Accepts Yes )( Accepted Time 213 )( Accepted Date 06/24/22 Call Information will see patient Discharge/Care Plan Admit NoteI have spoken with the patient and/or caregivers. I hav e explained the patient'scondition, diagnoses and treatment plan based on the information availabl e to meat this time. I have answered the patient's and/or caregiver's questions and addressed any concerns. The patient and/or caregivers have as good an understanding of the patient's diagnosis , condition and treatment plan as can beexpected a t this point. The patient has been stabilized within the capability ofthe emergency department . The patient will be transported for further care and management or will be moved to an observatio or inpatient service. I have communicated with the staff or medical practitioner taking over this patient's care. at 0410 RPT #: [id number] OF REPORTEDKindred Healthcare department [id number] matias ilable for patient [id number]
[2023-02-06 20:10] LABS: Absolute Lymphocytes (CBC) 1.7 K/uL (0.7-4.9); Hematocrit 41.8 % (39.6-49.0); Lymphocytes % 30.2 % (15.3-44.8); MPV 8.7 fL (7.6-11.3); Platelets 187 thou/uL (152-406)
[2023-02-06 20:26] LABS: Magnesium 2.2 mg/dL (1.6-2.4); Potassium 4.3 mEq/L (3.5-5.1); Troponin High Sensitivity 6.9 pg/mL (<58.9)
[2023-02-06 20:41] LABS: ALT/SGPT 17 U/L (16-61); AST/SGOT 14 U/L (15-37); Alkaline Phosphatase 91 U/L (45-117); Bilirubin Total 0.2 mg/dL (0.2-1.0); Protein, Total 6.8 g/dL (6.4-8.2)
[2023-02-06 20:42] LABS: Bilirubin Direct < 0.1 mg/dL (0-0.2); Bilirubin Indirect, Calculated ND mg/dL (0.2-0.8)
[2023-02-06] MEDS ORDERED: ASPIRIN 81 MG CHEWABLE TABLET ONE (20:46)
--- NOTE | 2023-02-06 20:56 | RAD REPORT ---
EXAM DESCRIPTION: Hari Single View02/06/2023 8:45 pm CLINICAL HISTORY: Chest pain COMPARISON: January 2023 FINDINGS: Chronic changes left lung base. The lungs appear clear of acute infiltrate. The heart is b orderline enlarged IMPRESSION: No acute abnormalities displayed
[2023-02-06] MEDS ORDERED: ONDANSETRON 4 MG/2 ML VIAL ONE (22:00)
[2023-02-06] MEDS ORDERED: MORPHINE 4 MG/ML SYR ONE (22:00)
--- NOTE | 2023-02-07 05:35 | ER ---
Nurse's Notes [facility] Name: Fred Hardy Age: 67 yrs Sex: Male : 1955 Arrival Date: 02/06/2023 Time: 19:31 Bed 14 Private MD: Diagnosis: Suicidal ideations Presentation: 02/06 19:38 Chief complaint: Patient states: Chest pain across chest that radiates to back onset cm10 today. PT states that he feels like he has an elephant sitting on his chest. Coronavirus screen: Vaccine status: Patient reports being unvaccinated. Client denies travel out of the [place] in the last 14 days. Ebola Screen: Patient denies travel to an Ebola-affected area in the 21 days before illness onset. No symptoms or risks identified at this time. Initial Sepsis Screen: Does the patient meet any 2 criteria? No. Patient's initial sepsis screen is negative. Does the patient have a suspected source of infection? No. Patient's initial sepsis screen is negative. Risk Assessment: Do you want to hurt yourself or someone else? Patient reports no desire to harm self or others. Onset of symptoms was February 06, 2023. 19:38 Method Of Arrival: Ambulatory cm10 19:38 Acuity: JOSÉ MIGUEL 2 cm10 Historical: - Allergies: 19:40 IV contrast; cm10 19:40 PENICILLINS; cm10 - PMHx: 19:40 coronary atherosclerosis; Hyperlipidemia; Hypertension; Myocardial infarction; cm10 Transient cerebral ischemia; - PSHx: 19:40 Coronary Angioplasty; Coronary artery bypass graft; umbilical hernia repair; cm10 - Immunization history:: Adult Immunizations unknown. - Social history:: Smoking status: Patient/guardian denies using tobacco. Screenin:37 [facility] ED Fall Risk Assessment (Adult) History of falling in the last 3 months, la4 including since admission No falls in past 3 months (0 pts) Confusion or Disorientation No (0 pts) Intoxicated or Sedated No (0 pts) Impaired Gait No (0 pts) Mobility Assist Device Used No (0 pt) Altered Elimination No (0 pt) Score/Fall Risk Level 0 - 2 = Low Risk. 23:37 Abuse screen: Denies threats or abuse. Denies injuries from another. Nutritional la4 screening: No deficits noted. Tuberculosis screening: No symptoms or risk factors identified. Assessment: 21:01 General: Appears in no apparent distress. Behavior is calm, cooperative, appropriate la4 for age. Pain: Complains of pain in chest Pain does not radiate. Quality of pain is described as sharp, Pain began suddenly. Cardiovascular: Heart tones S1 S2 Capillary refill < 3 seconds is brisk fingers toes Pulses are all present. Rhythm is sinus rhythm. Respiratory: Respiratory effort is even, unlabored, Respiratory pattern is regular, symmetrical, Breath sounds are clear bilaterally. in mediastinum, right upper lobe, left upper lobe, right middle lobe, left lower lobe, right lower lobe, left posterior upper lobe, right posterior upper lobe, left posterior lower lobe, right posterior middle lobe and right posterior lower lobe. 02/07 01:01 General: [facility]. vc1 Psych: 02/06 23:27 [place] Suicide Severity Screening: In the past month, have you wished you were la4 or wished you could go to sleep and not wake up? Patient responds "No." "In the past month, have you actually had any thoughts of killing yourself?" Patient responds "yes." Based off the client's response additional [place] suicide severity screening questions to be further documented on paper forms. Pt states that sometimes he thinks of killing himself due to all his health problems "In your lifetime, have you ever done anything, started to do anything, or prepared to do anything to end your life?" Patient responds "no.". Subjective: Patient's mood is irritable, Delusions are denied, Hallucinations are denied Having thoughts of suicide. Denies suicidal plan. Pt told his sister 6 months ago and a week ago that he would take a gun and one bullet and shoot himself. However the patient does not own and gun. When asked if he could obtain a gun the patient began to discuss his financial hardships and problems with identity theft that has been ongoing for over the past year or more. Pt has no other ideas on how he would attempt suicide. Subjective:. Objective: Patient is defensive, irritable, Speech is normal, Affect is appropriate. Interventions: Pt refusing to change into gown. Safety Checks: Door is open. Visitors are present. Pt denies substance abuse. Commitment: Patient will be a voluntary commitment. Pt is asking to be sent for psychiatric evaluation because he is unsure if all his pain and discomfort is "mental" or if there is something else going on. pt states that his symptoms make him consider suicide. Vital Signs: 19:38 Pulse 58; Resp 16; Temp 97.1(IR); Pulse Ox 96% ; Weight 92.99 kg; Height 6 ft. 0 in. ; cm10 Pain 9/10; 19:41 BP 131 / 80; cm10 20:30 BP 130 / 77; Pulse 60; Resp 20; Pulse Ox 97% on R/A; la4 21:00 BP 93 / 54; Pulse 58; Resp 20; Pulse Ox 96% ; la4 22:56 BP 106 / 64; Pulse 57; Resp 20; Pulse Ox 98% ; la4 02/07 01:40 BP 107 / 65; Pulse 47; Resp 20; Pulse Ox 96% ; la4 02/06 19:38 Body Mass Index 27.80 (92.99 kg, 182.88 cm) cm10 02/06 19:38 Pain Scale: Adult cm10 Vitals: 02/06 19:41 Cardiac Rhythm Assessment Regular Sinus rhythm. la4 22:56 Cardiac Rhythm Assessment Regular Sinus rhythm. la4 Josephine Coma Score: 19:41 Eye Response: spontaneous(4). Motor Response: obeys commands(6). Verbal Response: la4 oriented(5). Total: 15. 22:56 Eye Response: spontaneous(4). Motor Response: obeys commands(6). Verbal Response: la4 oriented(5). Total: 15. 02/07 01:40 Eye Response: spontaneous(4). Motor Response: obeys commands(6). Verbal Response: la4 oriented(5). Total: 15. ED Course: 02/06 19:34 Patient arrived in ED. gm2 19:40 Triage completed. cm10 19:41 Arm band placed on Patient placed in an exam room, on a stretcher. cm10 19:42 Nayeli Méndez FNP-C is [facility]. kb 19:42 Andrew Soto MD is Attending Physician. kb 19:50 Bed in low position. Call light in reach. Side rails up X2. Adult w/ patient. la4 19:50 Provided Education on: plan of care. Client placed on continuous cardiac and pulse la4 oximetry monitoring. NIBP monitoring applied. 19:50 No provider procedures requiring assistance completed. Patient maintains SpO2 la4 saturation greater than 95% on room air. 19:56 Initial lab(s) drawn, by me, sent to lab. Inserted saline lock: 18 gauge in right cm10 forearm, using aseptic technique. Blood collected. 19:57 Basic Metabolic Panel Sent. cm10 19:57 CBC with Diff Sent. cm10 19:57 Magnesium Sent. cm10 19:57 NT PRO-BNP Sent. cm10 19:57 PT-INR Sent. cm10 20:29 Lupillo Maya, RN is Primary Nurse. la4 20:47 XRAY Chest (1 view) In Process Unspecified. EDMS 02/07 00:52 faxed paperwork to [place] [id number] and Sandra. 01:00 Attending Physician role handed off by Andrew Soto MD kb 01:00 Yousif Pozo MD is Attending Physician. kb 01:40 IV discontinued, intact, bleeding controlled, No redness/swelling at site. Pressure la4 dressing applied. Administered Medications: 02/06 20:44 Drug: Aspirin PO Chewable Tablet 324 mg PO once; 81 mg tablets x 4 Route: PO; la4 23:37 Follow up: Response: No adverse reaction; No change in condition la4 Medication: 02/07 01:40 VIS not applicable for this client. la4 Outcome: 01:40 Transferred by ground EMS Note: [facility] la4 01:40 Condition: stable 01:40 Instructed on the need for transfer, Demonstrated understanding of 02:10 ER care complete, transfer ordered by MD. la4 02:10 Patient left the ED. la4 Signatures: Dispatcher [employer] EDIN Nayeli Méndez, DIRECTOR OF CLINICAL SERVICES-C DIRECTOR OF CLINICAL SERVICES-Lauren Summers RN RN vc1 Lisa Sharp RN RN cm10 Drea Perez 12 Juliane Jean 2 Lupillo Maya, RN RN la4
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
[2023-02-07 14:09] VITALS: TEMP 97.1
[2023-02-07 14:15] VITALS: BP 107/65; O2SAT 96
== END 2023-02-07 02:10 ==
LOC: ER 19:31
DX: R45.851 Suicidal ideations (principal); R07.89 Other chest pain; I10 Essential (primary) hypertension; Z88.0 Allergy status to penicillin; Z91.041 Radiographic dye allergy status; Z95.1 Presence of aortocoronary bypass graft
CPT/HCPCS: 93005; 85025; 80048; 36415; 83735; 85610; 80076; 85730; 84484 ×2; 83880; 71045; 99285; 80143; 82077; J2405

== ENCOUNTER → 2023-03-10 | Emergency (ER) | payer OTHER ==
[~2023-03-10] MED LIST: ASPIRIN 81 MG CHEWABLE TABLET ONE; CLOPIDOGREL 75 MG TABLET ONE; HEPARIN 5000 UNIT/ML 1 ML VIAL ONE; HEPARIN/D5W 25,000 UNIT/500 ML BAG IV ONE; NA CHLORIDE 0.9% 1,000 ML ONE
[2023-03-10 22:32] LABS: Absolute Lymphocytes (CBC) 1.4 K/uL (0.7-4.9); Hematocrit 39.6 % (39.6-49.0); Lymphocytes % 17.7 % (15.3-44.8); MCV 93.6 fL (80-100); Platelets 183 thou/uL (152-406); RBC Red Blood Cell Count 4.23 M/uL (4.33-5.43)
--- NOTE | 2023-03-10 22:32 | RAD REPORT ---
EXAM DESCRIPTION: RAD - Chest Single View - 03/10/2023 10:20 pm CLINICAL HISTORY: CHEST PAIN Chest pain. COMPARISON: Chest Single View dated 02/06/2023; Chest Pa And Lat (2 Views) dated 01/16/2023; Chest Si ngle View dated 01/15/2023; Chest Single View dated 12/21/2022 FINDINGS: Portable technique limits examination quality. The lungs are underinflated resulting in vascular crowding. Subtle opacity seen projecting over both lung bases lobe likely related to soft tissue interposition artifact. No consolidation suspected. The heart is mildly enlarged in size. No displaced fractures.
--- NOTE | 2023-03-10 22:54 | ER ---
Nurse's Notes [facility] Name: Fred Hardy Age: 67 yrs Sex: Male : 1955 Arrival Date: 03/10/2023 Time: 21:35 Bed 17 Private MD: Diagnosis: ST elevation (STEMI) myocardial infarction of inferior wall Presentation: 03/10 21:59 Chief complaint: Patient states: I have been having pain in my legs, chest tightness jb4 and generalized body aches. I had 4+ edema to my legs yesterday. Coronavirus screen: At this time, the client does not indicate any symptoms associated with coronavirus-19. Ebola Screen: No symptoms or risks identified at this time. Initial Sepsis Screen: Does the patient meet any 2 criteria? No. Patient's initial sepsis screen is negative. Does the patient have a suspected source of infection? No. Patient's initial sepsis screen is negative. Risk Assessment: Do you want to hurt yourself or someone else? Patient reports no desire to harm self or others. Onset of symptoms was March 10, 2023. Transition of care: patient was not received from another setting of care. 21:59 Method Of Arrival: Wheelchair jb4 21:59 Acuity: JOSÉ MIGUEL 3 jb4 Historical: - Allergies: 22:01 IV contrast; jb4 22:01 PENICILLINS; jb4 - PMHx: 22:01 Hyperlipidemia; coronary atherosclerosis; Hypertension; Myocardial infarction; jb4 Transient cerebral ischemia; - PSHx: 22:01 Coronary Angioplasty; umbilical hernia repair; Coronary artery bypass graft; jb4 - Immunization history:: Adult Immunizations up to date. Screenin:28 [facility] ED Fall Risk Assessment (Adult) History of falling in the last 3 months, tm6 including since admission No falls in past 3 months (0 pts). Abuse screen: Denies threats or abuse. Denies injuries from another. Nutritional screening: No deficits noted. Tuberculosis screening: No symptoms or risk factors identified. Assessment: 22:26 General: Appears in no apparent distress. Behavior is calm, cooperative. Pain: tm6 Complains of pain in chest. Pain: Quality of pain is described as pressure, Pain began. Neuro: Level of Consciousness is awake, alert, obeys commands, Oriented to person, place, time, situation. Cardiovascular: Capillary refill < 3 seconds Patient's skin is warm and dry. Respiratory: Airway is patent Respiratory effort is even, unlabored, Respiratory pattern is regular, symmetrical. GI: Abdomen is flat, non-distended. : No signs and/or symptoms were reported regarding the genitourinary system. EENT: No signs and/or symptoms were reported regarding the EENT system. Derm: No signs and/or symptoms reported regarding the dermatologic system. Musculoskeletal: No signs and/or symptoms reported regarding the musculoskeletal system. 23:14 Reassessment: report given to Micah PAREKH at [address] [facility]. tm6 Vital Signs: 21:59 BP 103 / 54; Pulse 58; Resp 16; Temp 97.9(TE); Pulse Ox 94% on R/A; Weight 90.72 kg; jb4 Height 6 ft. 0 in. ; 22:27 BP 92 / 47; Pulse 58; Resp 17; Pulse Ox 96% on R/A; tm6 22:56 BP 95 / 58; Pulse 61; Pulse Ox 96% on R/A; tm6 21:59 Body Mass Index 27.12 (90.72 kg, 182.88 cm) jb4 ED Course: 21:42 Patient arrived in ED. gm2 21:48 Nayeli Méndez FNP-C [facility]. kb 21:48 Emiliano Dee MD is Attending Physician. kb 21:51 Charly Silva, IZABELLA is Primary Nurse. tm6 22:01 Triage completed. jb4 22:01 Arm band placed on right wrist. jb4 22:22 XRAY Chest (1 view) In Process Unspecified. EDMS 22:25 No provider procedures requiring assistance completed. Inserted saline lock: 20 gauge tm6 in right forearm, using aseptic technique. Patient maintains SpO2 saturation greater than 95% on room air. 22:28 Patient has correct armband on for positive identification. Bed in low position. Call tm6 light in reach. Side rails up X2. Provided Education on: plan of care. Client placed on continuous cardiac and pulse oximetry monitoring. NIBP monitoring applied. bus driver/monitor on. Door closed. Noise minimized. Warm blanket given. 22:31 Initiated transfer with Ashley at [facility]. rv1 22:[address] Acosta [address] [facility] Calender Runner. rv1 22:48 [facility] ETA 10 mins. rv1 23:05 Inserted saline lock: 20 gauge in left forearm, using aseptic technique. mc5 23:14 Pt bed assignment [address] [place] [id number] Rm 17. rv1 23:14 Patient transferred, IV remains in place. tm6 Administered Medications: 22:34 Drug: Aspirin PO Chewable Tablet 324 mg PO once; 81 mg tablets x 4 {Note: 2 aspirin tm6 given, per Itzel WASTEWATER ENGINEER. Patient took 2 81mg aspirin prior to coming to ED..} Route: PO; 22:49 Drug: Heparin (ND Drip) 12 units/kg/hr - ([place] [address] units, D5W IV 500 ml) IV at tm6 calculated rate Per protocol; Max initial rate 1000 units/hr {Co-Signature: sofie (Willie Mendez RN).} Route: IV; Rate: calculated rate; Site: right forearm; 22:49 Drug: Heparin (ND-Bolus No thrombolytic) - HEParin IVP 60 units/kg IVP once; Max 5000 tm6 units {Co-Signature: sofie (Willie Mendez RN).} Route: IVP; Site: right forearm; 22:53 Drug: Clopidogrel PO 300 mg PO once Route: PO; tm6 Medication: 23:14 VIS not applicable for this client. tm6 Outcome: 22:54 ER care complete, transfer ordered by MD. hernández 23:13 [place] [facility] [place] 23:13 Condition: stable 23:13 Instructed on the need for transfer, Demonstrated understanding of instructions, 23:14 Patient left the ED. tm6 Signatures: Dispatcher [employer] EDMS Nayeli Méndez, GEORGINA-Dick WHITLEYP-Willie Dasilva, RN RN jb4 Sari Scott rv1 Jeanette Land 5 Juliane Jean 2 Charly Silva RN RN tm6 Willie Mendez RN jb4
--- NOTE | 2023-03-10 22:54 | EDPHYS ---
Physician Documentation [facility] Name: Fred Hardy Age: 67 yrs Sex: Male : 1955 Arrival Date: 03/10/2023 Time: 21:35 Bed 17 Private MD: ED Physician Emiliano Dee HPI: 03/10 22:54 This 67 yrs old Male presents to ER via Wheelchair with complaints of Leg Swelling, kb Chest Pain, sweating. 22:54 Patient is a 67-year-old male with a history of stroke, ID, quadruple bypass who kb presents for chest tightness, lower extremity edema, shortness of breath, nausea and episodes of diaphoresis that started last night. States this feels similar to the last time he had a heart attack.. Historical: - Allergies: 22:01 IV contrast; jb4 22:01 PENICILLINS; jb4 - PMHx: 22:01 Hyperlipidemia; coronary atherosclerosis; Hypertension; Myocardial infarction; jb4 Transient cerebral ischemia; - PSHx: 22:01 Coronary Angioplasty; umbilical hernia repair; Coronary artery bypass graft; jb4 - Immunization history:: Adult Immunizations up to date. ROS: 22:51 Constitutional: Negative for fever, chills, and weight loss, kb 22:51 Cardiovascular: Positive for chest pain, edema, Negative for orthopnea, palpitations, paroxysmal nocturnal dyspnea, 22:51 Respiratory: Positive for shortness of breath, 22:51 Abdomen/GI: Positive for nausea, Negative for abdominal pain, vomiting, diarrhea, 22:51 All other systems are negative, Exam: 22:51 Constitutional: This is a well developed, well nourished patient who is awake, alert, kb and in no acute distress. Head/Face: Normocephalic, atraumatic. ENT: Moist Mucous membranes Cardiovascular: Regular rate Respiratory: Respirations even and unlabored. No increased work of breathing. Talking in full sentences Abdomen/GI: Soft, non-tender. No distention Skin: Warm, dry with normal turgor. Normal color. MS/ Extremity: Pulses equal, no cyanosis. Neurovascular intact. Full, normal range of motion. Neuro: Awake and alert, GCS 15, oriented to person, place, time, and situation. Moves all extremities. Normal gait. 22:51 ECG was reviewed by the Attending Physician. Vital Signs: 21:59 BP 103 / 54; Pulse 58; Resp 16; Temp 97.9(TE); Pulse Ox 94% on R/A; Weight 90.72 kg; jb4 Height 6 ft. 0 in. ; 22:27 BP 92 / 47; Pulse 58; Resp 17; Pulse Ox 96% on R/A; tm6 22:56 BP 95 / 58; Pulse 61; Pulse Ox 96% on R/A; tm6 21:59 Body Mass Index 27.12 (90.72 kg, 182.88 cm) jb4 MDM: 21:48 Patient medically screened. kb 22:52 Data reviewed: vital signs, nurses notes. kb 22:52 Differential diagnosis: abnormal EKG, acute myocardial infarction, anxiety, coronary kb artery disease congestive heart failure. The patient was given aspirin in the Emergency Department. Consideration of Admission/Observation Escalation of care including admission/observation considered. will transfer to [facility] for STEMI. Management of patient was discussed with the following: Lead Javascript Engineer: Dr Perez recommends transfer for STEMI. Management of patient was discussed with the following: Dr Acosta, filler operator accepts pt for transfer to [facility]. Counseling: I had a detailed discussion with the patient and/or guardian regarding the historical points, exam findings, and any diagnostic results supporting the discharge/admit diagnosis, the need to transfer to another facility, for higher level of care, [facility] does not immediately have the required specialist. 03/10 21:48 Order name: Basic Metabolic Panel 03/10 21:48 Order name: CBC with Diff; Complete Time: 22:40 kb 03/10 21:48 Order name: Magnesium kb 03/10 21:48 Order name: NT PRO-BNP 03/10 21:48 Order name: Troponin HS kb 03/10 21:48 Order name: XRAY Chest (1 view); Complete Time: 22:34 kb 03/10 21:48 Order name: EKG; Complete Time: 21:49 kb 03/10 21:48 Order name: Cardiac monitoring; Complete Time: 22:34 kb 03/10 21:48 Order name: EKG - Nurse/Tech; Complete Time: 22:34 kb 03/10 21:48 Order name: IV Saline Lock; Complete Time: 22:34 kb 03/10 21:48 Order name: Labs collected and sent; Complete Time: 22:34 kb 03/10 21:48 Order name: O2 Per Protocol; Complete Time: 22:34 kb 03/10 21:48 Order name: O2 Sat Monitoring; Complete Time: :34 kb 03/10 22:42 Order name: Misc. Order: RECOLLECT GREEN TOP; Complete Time: 22:50 rv1 Administered Medications: 22:34 Drug: Aspirin PO Chewable Tablet 324 mg PO once; 81 mg tablets x 4 {Note: 2 aspirin tm6 given, per Itzel MORTGAGE COLLECTOR. Patient took 2 81mg aspirin prior to coming to ED..} Route: PO; 22:49 Drug: Heparin (ID Drip) 12 units/kg/[place] - ([place] [address] units, D5W IV 500 ml) IV at tm6 calculated rate Per protocol; Max initial rate 1000 units/hr {Co-Signature: sofie (Willie Mendez RN).} Route: IV; Rate: calculated rate; Site: right forearm; 22:49 Drug: Heparin (ID-Bolus No thrombolytic) - HEParin IVP 60 units/kg IVP once; Max 5000 tm6 units {Co-Signature: sofie (Willie Mendez RN).} Route: IVP; Site: right forearm; 22:53 Drug: Clopidogrel PO 300 mg PO once Route: PO; tm6 Disposition: 22:54 Critical Care:. kb 23:39 Co-signature as Attending Physician, Emiliano Dee MD I reviewed the patient's care rt provided by the Advanced Practice Provider and agree with the diagnosis and treatment plan. Disposition Summary: 03/10/23 22:54 Transfer Ordered Notes: Transfer Location: [facility] kb Reason: Higher level of care kb Problem: new kb Symptoms: are unchanged kb Condition: Stable(03/10/23 22:54) kb Accepting Physician: Dr Acosta(03/10/23 23:14) tm6 Diagnosis - ST elevation (STEMI) myocardial infarction of inferior wall kb Discharge Instructions: - Discharge Summary Sheet tm6 Forms: - Medication Reconciliation Form kb - SBAR form kb Critical care time excluding procedures: 22:54 Critical care time: Bedside Care: 10 minutes, Consultation: 10 minutes, Family kb Intervention: 10 minutes. Total time: 30 minutes Signatures: Dispatcher [employer] EDNayeli Reyes, GEORGINA-C ROTOFORMER BACKTENDER-Compab Willie Mendez RN RN jb4 Emiliano Dee MD MD rt Sari Scott 1 Charly Silva RN RN tm6 Willie Mendez RN jb4 Corrections: (The following items were deleted from the chart) :54 Dr Karla hernández kb :54 Stable kb kb 23:14 :54 Dr Karla hernández tm6
[2023-03-10 23:18] LABS: Potassium 3.7 mEq/L (3.5-5.1)
[2023-03-11 02:22] VITALS: TEMP 97.9; O2SAT 96
[2023-03-11 02:32] VITALS: BP 95/58
--- NOTE | 2023-03-12 12:24 | EKG ---
Test Date: 2023-03-10 Test Time: 22:28:50 Residential Subcontractor: JOSUÉ MEASUREMENT RESULTS: Intervals: Rate: 58 PA: 180 QRSD: 94 QT: 436 QTc: 428 [place]: P: 28 PA: 180 QRS: 61 T: 60 INTERPRETIVE STATEMENTS: Sinus bradycardia Inferior infarct, age undetermined T wave abnormality, consider anterior ischemia Abnormal ECG Compared to ECG 03/10/2023 22:07:06 T-wave abnormality now present Possible ischemia now present Myocardial infarct finding still present Electronically Signed On 03-12-23 12:20:04 MARKETING OPERATIONS ASSISTANT by Nishant Perez
--- NOTE | 2023-03-12 12:25 | EKG ---
Test Date: 2023-03-10 Test Time: 22:07:06 Porcelain Enamel Sprayer: DEEDEE MEASUREMENT RESULTS: Intervals: Rate: 58 VT: 180 QRSD: 80 QT: 422 QTc: 414 [place]: P: 27 VT: 180 QRS: 55 T: 67 INTERPRETIVE STATEMENTS: Sinus bradycardia Inferior infarct, possibly acute ACUTE MT / STEMI Abnormal ECG Compared to ECG 02/06/2023 19:47:30 Sinus rhythm no longer present ST (T wave) deviation no longer present Myocardial infarct finding still present Electronically Signed On 03-12-23 12:20:16 HEAD OF DIGITAL ADVERTISING & INTEGRATION by Nishant Perez
== END ==
LOC: ER 21:35
DX: I21.19 ST elevation (STEMI) myocardial infarction involving other coronary artery of inferior wall (principal); I10 Essential (primary) hypertension; Z95.1 Presence of aortocoronary bypass graft; I25.2 Old myocardial infarction; Z88.0 Allergy status to penicillin; Z91.041 Radiographic dye allergy status
CPT/HCPCS: 93005 ×2; 85025; 80048; 36415; 83735; 84484; 83880; 71045; 96374; 99285; J1644; J7030

== ENCOUNTER → 2023-05-18 | Emergency (ER) | payer OTHER ==
[~2023-05-18] MED LIST changes: -CLOPIDOGREL 75 MG TABLET ONE; +DIAZEPAM 5 MG TABLET ONE; -HEPARIN 5000 UNIT/ML 1 ML VIAL ONE; -HEPARIN/D5W 25,000 UNIT/500 ML BAG IV ONE; +MORPHINE 4 MG/ML SYR ONE; -NA CHLORIDE 0.9% 1,000 ML ONE; +ONDANSETRON 4 MG/2 ML VIAL ONE
[2023-05-18 17:55] LABS: Absolute Basophils 0.1 K/uL (0-0.5); Absolute Eosinophils 0.2 K/uL (0-0.5); Absolute Lymphocytes (CBC) 1.3 K/uL (0.7-4.9); Absolute Monocytes 0.4 K/uL (0.1-1.3); Absolute Neutrophil 3.1 K/uL (1.8-8.0); Basophils % 1.5 % (0-1.3); Eosinophils % 3.3 % (0-4.4); Hematocrit 43.8 % (39.6-49.0); Hemoglobin 14.8 g/dL (13.6-17.9); Lymphocytes % 25.9 % (15.3-44.8); MCH 31.8 pg (27.0-35.0); MCHC 33.8 g/dL (32.0-36.0); MPV 8.2 fL (7.6-11.3); Monocytes % 8.1 % (3.3-12.3); Neutrophils % 61.2 % (41.7-73.7); Platelets 219 thou/uL (152-406); RBC Red Blood Cell Count 4.66 M/uL (4.33-5.43); Red Cell Distribution Width 13.3 % (12.1-15.2)
[2023-05-18 18:12] LABS: Anion Gap 8.5 mEq/L (5.0-15.0); Potassium 3.5 mEq/L (3.5-5.1); Troponin High Sensitivity 5.5 pg/mL (<58.9)
--- NOTE | 2023-05-18 18:44 | RAD REPORT ---
[facility] CLINICAL HISTORY: CHEST PAIN COMPARISON: Chest Single View dated 03/10/2023; Chest Single View dated 02/06/2023; Chest Pa And Lat (2 Views) dated 01/16/2023; Chest Single View dated 01/15/2023 TECHNIQUE: Portable AP view of the chest. FINDINGS: Decreased inspiratory effort limits evaluation. Interstitial prominence at the periphery o f both lung bases may relate to superimposition of soft tissues, correlate to mild interstitial thick ening. No pneumothorax or effusion. The cardiomediastinal contours are unremarkable. IMPRESSION: Possible mild interstitial thickening at the lung bases versus artifact. No other acute findings.
--- NOTE | 2023-05-18 20:57 | RAD REPORT ---
EXAM DESCRIPTION: CT - Head Brain Wo Cont - 05/18/2023 8:19 pm CLINICAL HISTORY: SLURRED SPEECH COMPARISON: Head Brain Wo Cont dated 08/27/2015 TECHNIQUE: Noncontrast head CT images were obtained without IV contrast. Multiplanar reformats were generated and reviewed. All CT scans are performed using dose optimization technique as appropriate and may include automated exposure control or mA/KV adjustment according to patient size. FINDINGS: Left basal ganglia focus of hypoattenuation. No intracranial hemorrhage, mass, or edema. Midline structures are unremarkable. Normal ventricular caliber for age. Paula-white matter differentiation is otherwise preserved, without evidence of acute infarct. Other pa tchy basal ganglia and deep white matter hypoattenuation, stable and nonspecific, may relate to chron ic small vessel ischemic changes. No abnormal extra-axial fluid collections. Mastoid air cells and visualized portions of the paranasal sinuses are clear. No acute bony findings. IMPRESSION: Left basal ganglia focus of hypoattenuation, may represent a small infarct of indetermin ate age. The findings were communicated to Nayeli Méndez on 05/18/2023 at 20:53 hours.
--- NOTE | 2023-05-18 21:34 | ER ---
Nurse's Notes [facility] Name: Fred Hardy Age: 67 yrs Sex: Male : 1955 Arrival Date: 05/18/2023 Time: 17:28 Bed 5 Private MD: Diagnosis: Chest pain, unspecified Presentation: 05/17 17:37 Chief complaint: Patient states: chest pain for the last couple of hours. ED provider nj1 at bedside. 17:37 Coronavirus screen: Vaccine status: Patient reports being unvaccinated. Ebola Screen: nj1 Patient denies travel to an Ebola-affected area in the 21 days before illness onset. Initial Sepsis Screen: Does the patient meet any 2 criteria? No. Patient's initial sepsis screen is negative. Does the patient have a suspected source of infection? No. Patient's initial sepsis screen is negative. Risk Assessment: Do you want to hurt yourself or someone else? Patient reports no desire to harm self or others. Onset of symptoms was May 18, 2023. 17:37 Method Of Arrival: Ambulatory [facility] 17:37 Acuity: JOSÉ MIGUEL 3 nj Historical: - Allergies: 17:40 IV contrast; nj1 17:40 PENICILLINS; nj1 - PMHx: 17:40 coronary atherosclerosis; Hyperlipidemia; Hypertension; Myocardial infarction; nj1 Transient cerebral ischemia; - PSHx: 17:40 Coronary Angioplasty; Coronary artery bypass graft; umbilical hernia repair; nj1 - Immunization history:: Client reports having NOT received the Covid vaccine. - Social history:: Smoking status: Patient/guardian denies using tobacco, but has a distant history of tobacco abuse. Screenin:14 [facility] ED Fall Risk Assessment (Adult) History of falling in the last 3 months, [facility] including since admission No falls in past 3 months (0 pts) Confusion or Disorientation No (0 pts) Intoxicated or Sedated No (0 pts) Impaired Gait No (0 pts) Mobility Assist Device Used No (0 pt) Altered Elimination No (0 pt) Score/Fall Risk Level 0 - 2 = Low Risk Oriented to surroundings, Maintained a safe environment, Hourly rounding (assess needs \T\ fall precautionary measures) done. Abuse screen: Denies threats or abuse. Denies injuries from another. Nutritional screening: No deficits noted. Tuberculosis screening: No symptoms or risk factors identified. Assessment: 17:40 General: Appears in no apparent distress. comfortable, Behavior is calm, cooperative, nj1 appropriate for age. 17:40 Pain: Complains of pain in chest Pain currently is 8 out of 10 on a pain scale. Quality nj1 of pain is described as pressure. Neuro: Level of Consciousness is awake, alert, obeys commands, Oriented to person, place, time, situation, Speech is normal, Cardiovascular: Patient's skin is warm and dry. Rhythm is regular. Cardiovascular: Reports chest pain. Respiratory: Airway is patent Respiratory effort is even, unlabored. 19:05 Reassessment: Patient appears in no apparent distress at this time. Resting/sleeping. nj1 19:10 General: Appears in no apparent distress. uncomfortable, Behavior is calm, cooperative. jw7 19:10 Pain: Complains of pain in chest Pain radiates to right arm Pain currently is 8 out of jw7 10 on a pain scale. Quality of pain is described as pressure, Pain began gradually, Is continuous. Neuro: Level of Consciousness is awake, alert, obeys commands, Oriented to person, place, time, situation, Speech is normal, Facial symmetry appears normal. Cardiovascular: Heart tones S1 S2 present Capillary refill < 3 seconds Clubbing of nail beds is absent JVD is absent Patient's skin is warm and dry. Rhythm is regular. Respiratory: Airway is patent Trachea midline Respiratory effort is even, unlabored, Respiratory pattern is regular, symmetrical. GI: Abdomen is flat, non-distended, Bowel sounds present X 4 quads. Abd is soft and non tender X 4 quads. : No deficits noted. No signs and/or symptoms were reported regarding the genitourinary system. EENT: No deficits noted. No signs and/or symptoms were reported regarding the EENT system. Derm: Skin is intact, is healthy with good turgor, Skin is dry, Skin is normal, Skin temperature is warm. Musculoskeletal: Circulation, motion, and sensation intact. Range of motion: intact in all extremities. 20:00 Reassessment: Patient appears in no apparent distress at this time. No changes from jw7 previously documented assessment. Patient and/or family updated on plan of care and expected duration. Pain level reassessed. Patient is alert, oriented x 3, equal unlabored respirations, skin warm/dry/pink. 21:00 Reassessment: Patient appears in no apparent distress at this time. No changes from jw7 previously documented assessment. Patient and/or family updated on plan of care and expected duration. Pain level reassessed. Patient is alert, oriented x 3, equal unlabored respirations, skin warm/dry/pink. 21:45 Reassessment: Patient appears in no apparent distress at this time. Patient and/or jb4 family updated on plan of care and expected duration. Pain level reassessed. Patient is alert, oriented x 3, equal unlabored respirations, skin warm/dry/pink. Vital Signs: 17:37 BP 142 / 87; Pulse 67; Resp 18; Temp 97.7(O); Pulse Ox 96% on R/A; Weight 89.81 kg; nj1 Height 6 ft. 0 in. ; Pain 8/10; 19:05 BP 126 / 65; Pulse 64; Resp 12; Pulse Ox 93% on R/A; nj1 20:00 BP 120 / 80; Pulse 53; Resp 13 S; Pulse Ox 94% on R/A; jw7 21:00 BP 119 / 74; Pulse 53; Resp 13 S; Pulse Ox 93% on R/A; jw7 17:37 Body Mass Index 26.85 (89.81 kg, 182.88 cm) nj1 17:37 Pain Scale: Adult nj NIH Stroke Scale Scores: 21:48 NIHSS Score: 0 kb ED Course: 17:32 Patient arrived in ED. mg5 17:35 Cassie Monterroso, IZABELLA is Primary Nurse. nj1 17:36 [facility]C [facility] kb 17:36 Emiliano Dee MD is Attending Physician. kb 17:40 Patient has correct armband on for positive identification. Placed in gown. Bed in low nj1 position. Call light in reach. Side rails up X 1. Provided Education on: call light, fall precautions. 17:40 Client placed on continuous cardiac and pulse oximetry monitoring. NIBP monitoring nj1 applied. night monitor on. 17:50 No provider procedures requiring assistance completed. Inserted saline lock: 20 gauge kd3 in left antecubital area, using aseptic technique. Blood collected. 17:51 Initial lab(s) drawn, by in, sent to lab. EKG done, by ED staff. kd3 18:02 Triage completed. nj1 18:05 XRAY Chest (1 view) In Process Unspecified. EDMS 18:09 Arm band placed on. nj1 19:00 Report received from IZABELLA Padron. jw7 19:49 Primary Nurse role handed off by Cassie Monterroso RN nj1 20:21 CT Head Brain wo Cont In Process Unspecified. EDMS 21:20 Attending Physician role handed off by Emiliano Dee MD sp4 21:20 Yousif Pozo MD is Attending Physician. sp4 21:45 IV discontinued, intact, bleeding controlled, No redness/swelling at site. Pressure jb4 dressing applied. Administered Medications: 18:00 Drug: Aspirin PO Chewable Tablet 324 mg PO once; 81 mg tablets x 4 Route: PO; nj1 21:45 Follow up: Response: No adverse reaction jb4 19:28 Drug: morphine IVP or IV 2 mg IVP once over 4 mins Route: IVP; Infused Over: 4 mins; jw7 Site: left antecubital; 21:45 Follow up: Response: No adverse reaction; Marked relief of symptoms jb4 19:28 Drug: Ondansetron IVP 4 mg IVP once; over 2 minutes Route: IVP; Site: left antecubital; jw7 21:45 Follow up: Response: No adverse reaction; Marked relief of symptoms jb4 20:55 CANCELLED (Physician Discretion): morphineor iv 4 mg IVP once over 4 mins 21:44 Drug: Diazepam PO 5 mg PO once Route: PO; jb4 21:44 Follow up: Response: Medication administered at discharge. jb4 Medication: 21:45 VIS not applicable for this client. jb4 Outcome: 21:33 Discharge ordered by . kb 21:45 Discharged to home ambulatory, with family, jb4 21:45 Condition: stable 21:45 Discharge instructions given to patient, family, Instructed on discharge instructions, follow up and referral plans. Demonstrated understanding of instructions, follow-up care, 21:49 Patient left the ED. jb4 NIH Stroke Scale - NIH Stroke Score Date: 05/18/2023 Time: 21:48 Total Score = 0 10. Dysarthria (speech clarity - read or repeat words) - 0(Normal) 11. Extinction and Inattention (visual/tactile/auditory/spatial/personal) - 0(No abnormality) 1a. Level of Consciousness (LOC) - 0(Alert) 1b. Level of Consciousness (LOC) (Month \T\ Age) - 0(Both) 1c. LOC Commands (Open \T\ Closes Eyes/Chummer) - 0(Both) 2. Best Gaze (Lateral Gaze Paresis) - 0(Normal) 3. Visual Field Loss - 0(No visual loss) 4. Facial Palsy - 0(Normal) 5a. Left Arm: Motor (10-second hold) - 0(No drift) 5b. Right Arm: Motor (10-second hold) - 0(No drift) 6a. Left Leg: Motor (5-second hold - always test supine) - 0(No drift) 6b. Right Leg: Motor (5-second hold - always test supine) - 0(No drift) 7. Limb Ataxia (finger/nose \T\ heel/mullins - test with eyes open) - 0(Absent) 8. Sensory Loss (pinprick arms/legs/face) - 0(Normal) 9. Best Language: Aphasia (description/naming/reading) - 0(No aphasia) Initials: kb Signatures: Dispatcher [employer] EDMS Nayeli Méndez, GLASS SAGGER-C GLASS SAGGER-Ckb Willie Mendez, RN RN jb4 Nereida Martinez RN RN kd3 Justina Michael, RN RN jw7 Yousif Pozo MD MD sp4 Cassie Monterroso RN RN shayla1 Merissa Goodson mg5 Corrections: (The following items were deleted from the chart) 18:02 17:37 Chief complaint: Patient states: chest pain for the last couple of hours shayla1 shayla1
--- NOTE | 2023-05-18 21:34 | EDPHYS ---
Physician Documentation [facility] Name: Fred Hardy Age: 67 yrs Sex: Male : 1955 Arrival Date: 05/18/2023 Time: 17:28 Bed 5 Private MD: ED Physician Yousif Pozo HPI: 05/17 21:51 This 67 yrs old Male presents to ER via Ambulatory with complaints of Nausea, Breathing kb Difficulty, Cough, Chest Pain. 21:51 Patient is a 67-year-old male who presents for diffuse chest pain that he has daily but kb today the pain made him very anxious so he came in for evaluation. States he did take a Xanax for the anxiety but then became concerned that he was not going to wake up if he went to sleep so he wanted to come get checked out. Patient states he was recently flown to [facility] for a STEMI but when he got there they did a heart cath and he had no blockages. States the dewer told him he did not have a heart attack.. Historical: - Allergies: 17:40 IV contrast; nj1 17:40 PENICILLINS; nj1 - PMHx: 17:40 coronary atherosclerosis; Hyperlipidemia; Hypertension; Myocardial infarction; nj1 Transient cerebral ischemia; - PSHx: 17:40 Coronary Angioplasty; Coronary artery bypass graft; umbilical hernia repair; nj1 - Immunization history:: Client reports having NOT received the Covid vaccine. - Social history:: Smoking status: Patient/guardian denies using tobacco, but has a distant history of tobacco abuse. ROS: 21:48 Constitutional: As per HPI kb Exam: 21:48 Constitutional: This is a well developed, well nourished patient who is awake, alert, kb and in no acute distress. Head/Face: Normocephalic, atraumatic. ENT: Moist Mucous membranes Cardiovascular: Regular rate Respiratory: Respirations even and unlabored. No increased work of breathing. Talking in full sentences Abdomen/GI: Soft, non-tender. No distention Skin: Warm, dry with normal turgor. Normal color. MS/ Extremity: Pulses equal, no cyanosis. Neurovascular intact. Full, normal range of motion. Neuro: Awake and alert, GCS 15, oriented to person, place, time, and situation. Moves all extremities. Normal gait. 21:48 Constitutional: The patient appears anxious, Vital Signs: 17:37 BP 142 / 87; Pulse 67; Resp 18; Temp 97.7(O); Pulse Ox 96% on R/A; Weight 89.81 kg; nj1 Height 6 ft. 0 in. ; Pain 8/10; 19:05 BP 126 / 65; Pulse 64; Resp 12; Pulse Ox 93% on R/A; nj1 20:00 BP 120 / 80; Pulse 53; Resp 13 S; Pulse Ox 94% on R/A; jw7 21:00 BP 119 / 74; Pulse 53; Resp 13 S; Pulse Ox 93% on R/A; jw7 17:37 Body Mass Index 26.85 (89.81 kg, 182.88 cm) nj1 17:37 Pain Scale: Adult nj1 NIH Stroke Scale Scores: 21:48 NIHSS Score: 0 kb MDM: 17:36 Patient medically screened. kb 19:13 ED course: Sister reports pt had slurred speech when she spoke to him on the phone kb around 1430. States he sounds normal now, but would like a CT of his brain to be safe. . 19:30 Management of patient was discussed with the following: Dr. Dee who agrees with kb repeat troponin and discharged home if normal to follow-up with cardiology.. 21:15 Management of patient was discussed with the following: Dr. Pozo, including CT kb scan of brain. Recommends follow-up with neurology on outpatient basis.. 21:46 Data reviewed: vital signs, nurses notes. kb 21:48 Differential diagnosis: abnormal EKG, acute myocardial infarction, anxiety, coronary kb artery disease chest wall pain. The patient was given aspirin in the Emergency Department. Consideration of Admission/Observation Escalation of care including admission/observation considered. Admission considered for chest pain with a heart score of 4 but patient reports he has this pain daily. Patient reports he took Xanax for it today and tried to go to sleep but then started getting more anxious about not waking up so that is what made him come in for evaluation. Serial troponins within normal limits, EKG without acute findings. Patient has no neurodeficits and is in no distress.. Historians other than the Patient: Family Member: Sister. Counseling: I had a detailed discussion with the patient and/or guardian regarding the historical points, exam findings, and any diagnostic results supporting the discharge/admit diagnosis, lab results, radiology results, the need for outpatient follow up, a dewer, a neurologist, to return to the emergency department if symptoms worsen or persist or if there are any questions or concerns that arise at home. 05/17 17:43 Order name: Basic Metabolic Panel; Complete Time: 18:12 kb 05/17 17:43 Order name: CBC with Diff; Complete Time: 18:05 kb 05/17 17:43 Order name: Magnesium; Complete Time: 18:12 kb 05/17 17:43 Order name: Troponin HS; Complete Time: 18:12 kb 05/17 20:55 Order name: Troponin High Sensitivity; Complete Time: 21:33 jb4 05/17 17:43 Order name: XRAY Chest (1 view); Complete Time: 18:45 kb 05/17 19:13 Order name: CT Head Brain wo Cont; Complete Time: 21:00 kb 05/17 17:43 Order name: EKG; Complete Time: 17:44 kb 05/17 17:43 Order name: Cardiac monitoring; Complete Time: 17:56 kb 05/17 17:43 Order name: EKG - Nurse/Tech; Complete Time: 17:56 kb 05/17 17:43 Order name: IV Saline Lock; Complete Time: 17:56 kb 05/17 17:43 Order name: Labs collected and sent; Complete Time: 17:56 kb 05/17 17:43 Order name: O2 Per Protocol; Complete Time: 17:56 kb 05/17 17:43 Order name: O2 Sat Monitoring; Complete Time: 17:56 kb Administered Medications: 18:00 Drug: Aspirin PO Chewable Tablet 324 mg PO once; 81 mg tablets x 4 Route: PO; nj1 21:45 Follow up: Response: No adverse reaction jb4 19:28 Drug: morphine IVP or IV 2 mg IVP once over 4 mins Route: IVP; Infused Over: 4 mins; jw7 Site: left antecubital; 21:45 Follow up: Response: No adverse reaction; Marked relief of symptoms jb4 19:28 Drug: Ondansetron IVP 4 mg IVP once; over 2 minutes Route: IVP; Site: left antecubital; jw7 21:45 Follow up: Response: No adverse reaction; Marked relief of symptoms jb4 20:55 CANCELLED (Physician Discretion): morphineor iv 4 mg IVP once over 4 mins kb 21:44 Drug: Diazepam PO 5 mg PO once Route: PO; jb4 21:44 Follow up: Response: Medication administered at discharge. jb4 Disposition: 05/18 19:00 Co-signature as Attending Physician, Yousif Pozo MD I agree with the assessment sp4 and plan of care. I reviewed the patient's care provided by Advanced Practice Provider \T\ agree w/ the diagnosis \T\ care plan. I personally saw the pt \T\ performed a substantive portion of the visit, incldng all aspects of the (History/Exam/Medical Decision Making). Disposition Summary: 05/18/23 21:33 Discharge Ordered Notes: Location: Home kb Condition: Stable kb Diagnosis - Chest pain, unspecified kb Followup: kb - With: Emergency Department - When: As needed - Reason: Worsening of condition Followup: kb - With: Private Physician - When: 2 - 3 days - Reason: Recheck today's complaints, Continuance of care, Re-evaluation by your physician Discharge Instructions: - Discharge Summary Sheet kb - Nonspecific Chest Pain, Adult, [id number] kb - Generalized Anxiety Disorder, Adult kb Forms: - Medication Reconciliation Form kb - Thank You Letter kb - Antibiotic Education kb - Prescription Opioid Use kb - Patient Portal Instructions kb - Leadership Thank You Letter NIH Stroke Scale - NIH Stroke Score Date: 05/18/2023 Time: 21:48 Total Score = 0 10. Dysarthria (speech clarity - read or repeat words) - 0(Normal) 11. Extinction and Inattention (visual/tactile/auditory/spatial/personal) - 0(No abnormality) 1a. Level of Consciousness (LOC) - 0(Alert) 1b. Level of Consciousness (LOC) (Month \T\ Age) - 0(Both) 1c. LOC Commands (Open \T\ Closes Eyes/Tele Marketing Executive) - 0(Both) 2. Best Gaze (Lateral Gaze Paresis) - 0(Normal) 3. Visual Field Loss - 0(No visual loss) 4. Facial Palsy - 0(Normal) 5a. Left Arm: Motor (10-second hold) - 0(No drift) 5b. Right Arm: Motor (10-second hold) - 0(No drift) 6a. Left Leg: Motor (5-second hold - always test supine) - 0(No drift) 6b. Right Leg: Motor (5-second hold - always test supine) - 0(No drift) 7. Limb Ataxia (finger/nose \T\ heel/mullins - test with eyes open) - 0(Absent) 8. Sensory Loss (pinprick arms/legs/face) - 0(Normal) 9. Best Language: Aphasia (description/naming/reading) - 0(No aphasia) Initials: kb Signatures: Dispatcher [employer] EDNayeli Reyes, BARREL PLANER-C BARREL PLANER-CkWillie Mckeon, RN RN jb4 Justina Michael RN RN jw7 Yousif Pozo MD MD sp4 Cassie Montreroso RN RN nj1 Corrections: (The following items were deleted from the chart) 05/17 20:55 20:54 morphine IVP or IV 4 mg IVP once over 4 mins ordered. kb kb
[2023-05-18 22:02] VITALS: BP 119/74; TEMP 97.7; O2SAT 93
== END ==
LOC: ER 17:28
DX: R07.9 Chest pain, unspecified (principal); F41.9 Anxiety disorder, unspecified; I10 Essential (primary) hypertension; Z95.1 Presence of aortocoronary bypass graft; Z98.61 Coronary angioplasty status; Z88.0 Allergy status to penicillin; Z91.041 Radiographic dye allergy status
CPT/HCPCS: 85025; 80048; 36415; 83735; 84484 ×2; 70450; 71045; 96375; 96374; 99285; J2405; 93005

== ENCOUNTER 2023-08-08 03:14 | Emergency (ER) | payer OTHER ==
[2023-08-08] MEDS ORDERED: ONDANSETRON 4 MG/2 ML VIAL ONE (03:22)
[2023-08-08] MEDS ORDERED: MORPHINE 4 MG/ML SYR ONE (03:22)
[2023-08-08] MEDS ORDERED: LORAZEPAM 1 MG TABLET ONE (03:23)
[2023-08-08 03:59] LABS: PT Prothrombin Time 11.5 SECONDS (9.5-12.5); Protime INR 1.05
[2023-08-08 04:01] LABS: Absolute Basophils 0.1 K/uL (0-0.5); Absolute Eosinophils 0.3 K/uL (0-0.5); Absolute Lymphocytes (CBC) 1.9 K/uL (0.7-4.9); Absolute Monocytes 0.5 K/uL (0.1-1.3); Absolute Neutrophil 4.4 K/uL (1.8-8.0); Basophils % 0.8 % (0-1.3); Eosinophils % 3.5 % (0-4.4); Hemoglobin 14.8 g/dL (13.6-17.9); Lymphocytes % 27.3 % (15.3-44.8); MCH 31.5 pg (27.0-35.0); MCHC 33.7 g/dL (32.0-36.0); MCV 93.4 fL (80-100); Monocytes % 6.6 % (3.3-12.3); Neutrophils % 61.8 % (41.7-73.7); Nucleated Red Blood Cells % 0.4 % (0-0); Platelets 212 thou/uL (152-406); RBC Red Blood Cell Count 4.71 M/uL (4.33-5.43); Red Cell Distribution Width 13.4 % (12.1-15.2)
[2023-08-08 04:16] LABS: ALT/SGPT 15 U/L (16-61); Albumin/Globulin Ratio 0.8 (1.1-1.8); Alkaline Phosphatase 90 U/L (45-117); Anion Gap 7.6 mEq/L (5.0-15.0); BUN Blood Urea Nitrogen 14 mg/dL (7-18); Bicarbonate 28 mEq/L (21-32); Bilirubin Total 0.2 mg/dL (0.2-1.0); Globulin 3.6 g/dL (2.3-3.5); Glomerular Filtration Rate 62 ml/min (=/>90); Glucose Level 130 mg/dL (74-106); Magnesium 1.9 mg/dL (1.6-2.4); NT PRO-BNP 164 pg/mL (<125); Potassium 3.6 mEq/L (3.5-5.1); Protein, Total 6.6 g/dL (6.4-8.2); Sodium Level 140 mEq/L (136-145); Troponin High Sensitivity 5.2 pg/mL (<58.9)
[2023-08-08 04:17] LABS: AST/SGOT < 10 U/L (15-37); Bilirubin Direct < 0.2 mg/dL (0-0.2)
[2023-08-08] MEDS ORDERED: MORPHINE 2 MG/ML SYR ONE (05:46)
[2023-08-08] MEDS ORDERED: NA CHLORIDE 0.9% 500 ML ONE (05:47)
--- NOTE | 2023-08-08 06:33 | ER ---
Nurse's Notes [facility] Name: Fred Hardy Age: 67 yrs Sex: Male : 1955 Arrival Date: 08/08/2023 Time: 03:14 Bed 7 Private MD: Diagnosis: Chest pain, unspecified;Non cardiac chest pain Presentation: 08/07 03:19 Chief complaint: EMS states: I started having chest pain at 10pm last night and now I jb4 have tingling down my left side and I feel weak all over and I hurt all over. It feels like I have someone sitting on my chest. Coronavirus screen: At this time, the client does not indicate any symptoms associated with coronavirus-19. Ebola Screen: No symptoms or risks identified at this time. Initial Sepsis Screen: Does the patient meet any 2 criteria? No. Patient's initial sepsis screen is negative. Does the patient have a suspected source of infection? No. Patient's initial sepsis screen is negative. Risk Assessment: Do you want to hurt yourself or someone else? Patient reports no desire to harm self or others. Onset of symptoms was July 07, 2023. Transition of care: patient was not received from another setting of care. 03:19 Method Of Arrival: Ambulatory jb4 03:19 Acuity: JOSÉ MIGUEL 2 jb4 Historical: - Allergies: 03:21 IV contrast; jb4 03:21 PENICILLINS; jb4 - PMHx: 03:21 coronary atherosclerosis; Hyperlipidemia; Hypertension; Myocardial infarction; jb4 Transient cerebral ischemia; - PSHx: 03:21 Coronary artery bypass graft; umbilical hernia repair; Coronary Angioplasty; jb4 - Immunization history:: Adult Immunizations up to date. - Infectious Disease History:: Denies. - Social history:: Smoking status: Patient denies any tobacco usage or history of. - Family history:: not pertinent. Screenin:39 [facility] ED Fall Risk Assessment (Adult) History of falling in the last 3 months, cp4 including since admission No falls in past 3 months (0 pts) Confusion or Disorientation No (0 pts) Intoxicated or Sedated No (0 pts) Impaired Gait No (0 pts) Mobility Assist Device Used No (0 pt) Altered Elimination No (0 pt) Score/Fall Risk Level 0 - 2 = Low Risk Oriented to surroundings, Maintained a safe environment, Assessed \T\ reinforced patient's understanding of fall precautions, Hourly rounding (assess needs \T\ fall precautionary measures) done. Abuse screen: Denies threats or abuse. Nutritional screening: No deficits noted. Tuberculosis screening: No symptoms or risk factors identified. Assessment: 03:39 General: Appears uncomfortable, Behavior is calm, cooperative, appropriate for age. cp4 Pain: Pain does not radiate. Pain began 1 hour ago. Cardiovascular: Reports chest pain, shortness of breath. Respiratory: Reports shortness of breath at rest Breath sounds are clear bilaterally. Vital Signs: 03:20 BP 102 / 85; Pulse 55; Resp 18; Pulse Ox 96% ; cp4 04:00 BP 118 / 75; Pulse 55; Resp 18; Pulse Ox 94% ; cp4 05:00 BP 95 / 73; Pulse 50; Resp 18; Pulse Ox 94% ; cp4 06:00 BP 117 / 65; Pulse 50; Resp 18; Pulse Ox 96% 2 lpm ; cp4 ED Course: 03:17 Patient arrived in ED. jj6 03:19 Yousif Pozo MD is Attending Physician. sp4 03:20 Ester Merritt is Primary Nurse. cp4 03:21 Triage completed. jb4 03:21 Arm band placed on right wrist. jb4 03:38 XRAY Chest (1 view) In Process Unspecified. EDMS 03:39 Bed in low position. Call light in reach. Side rails up X2. Provided Education on: cp4 chest pain. Client placed on continuous cardiac and pulse oximetry monitoring. NIBP monitoring applied. clinical research monitor on. Pulse ox on. 03:39 No provider procedures requiring assistance completed. Initial lab(s) drawn, by mn, cp4 sent to lab. Inserted saline lock: 20 gauge in right antecubital area, using aseptic technique. Blood collected. O2 via room air. 05:42 Troponin High Sensitivity Sent. cp4 06:31 Nishant Perez MD is Referral Physician. sp4 06:44 IV discontinued, intact, bleeding controlled, No redness/swelling at site. Pressure km8 dressing applied. Administered Medications: 03:31 Drug: Ondansetron IVP 4 mg IVP once; over 2 minutes Route: IVP; Site: right antecubital;cp4 05:51 Follow up: Response: No adverse reaction cp4 03:31 Drug: LORazepam PO 2 mg PO once Route: PO; cp4 05:51 Follow up: Response: No adverse reaction cp4 03:32 Drug: morphine IVP or IV 4 mg IVP once over 4 mins Route: IVP; Infused Over: 4 mins; cp4 Site: right antecubital; 05:51 Follow up: Response: No adverse reaction cp4 05:51 Drug: NS 0.9% IV 500 ml IV at bolus once Route: IV; Rate: bolus; Site: right cp4 antecubital; 06:40 Follow up: IV Status: Completed infusion; IV Intake: 500ml km8 05:51 Drug: morphine IVP or IV 2 mg IVP once over 4 mins Route: IVP; Infused Over: 4 mins; cp4 Site: right antecubital; 05:52 Follow up: Response: No adverse reaction cp4 Medication: 03:39 VIS not applicable for this client. cp4 Intake: 06:40 IV: 500ml; Total: 500ml. km8 Outcome: 06:32 Discharge ordered by MD. perdomo 06:44 Discharged to home ambulatory, with family, km8 06:44 Condition: good 06:44 Discharge instructions given to patient, Instructed on discharge instructions, follow up and referral plans. Demonstrated understanding of instructions, follow-up care, 06:44 Patient left the ED. km8 Signatures: Dispatcher [employer] EDMS Willie Mendez, RN RN jb4 Rosemarie Masterson6 Yousif Pozo MD MD sp4 Ester Merritt Katie, RN RN km8
--- NOTE | 2023-08-08 06:33 | EDPHYS ---
Physician Documentation [facility] Name: Fred Hardy Age: 67 yrs Sex: Male : 1955 Arrival Date: 08/08/2023 Time: 03:14 Bed 7 Private MD: ED Physician Yousif Pozo HPI: 08/07 03:20 This 67 yrs old Male presents to ER via Unassigned with complaints of Chest sp4 Pain, LEFT ARM NUMBNESS. 05:48 67-year-old male with past medical history of hyperlipidemia, CAD, hypertension, AR, sp4 TIA, CABG presents from home with chest pain after he consumed cannabis cookie. Patient complains of numbness tingling in the left arm. Patient's medications include aspirin 81 mg, clopidogrel 75 mg, losartan 50 mg, metoprolol 25 mg rosuvastatin 5 mg alprazolam as needed. Last admission 07/26/2023. Patient was assessed by technician chemical cleaning and technician chemical cleaning advised medical management. Patient is apparently allergic to iodine and he cannot have iodine enhanced CT scan. During this admission cardiology assessment was history of coronary artery disease history of CABG recent angiogram showing patent grafts, and technician chemical cleaning determined that patient can see them on outpatient basis. Medical management was advised. Historical: - Allergies: 03:21 IV contrast; jb4 03:21 PENICILLINS; jb4 - PMHx: 03:21 coronary atherosclerosis; Hyperlipidemia; Hypertension; Myocardial infarction; jb4 Transient cerebral ischemia; - PSHx: 03:21 Coronary artery bypass graft; umbilical hernia repair; Coronary Angioplasty; jb4 - Immunization history:: Adult Immunizations up to date. - Infectious Disease History:: Denies. - Social history:: Smoking status: Patient denies any tobacco usage or history of. - Family history:: not pertinent. ROS: 05:48 Constitutional: Negative for fever, chills, and weight loss, positive for chest pain sp4 and left arm tingling 05:48 All other systems are negative, Exam: 05:48 Constitutional: This is a well developed, well nourished patient who is awake, alert, sp4 and in no acute distress. Head/Face: Normocephalic, atraumatic. Eyes: Pupils equal round and reactive to light, extra-ocular motions intact. Lids and lashes normal. Conjunctiva and sclera are not injected. Cornea within normal limits. Periorbital areas with no swelling, redness, or edema. ENT: Nares patent. No nasal discharge, no septal abnormalities noted. Tympanic membranes are normal and external auditory canals are clear. Oropharynx with no redness, swelling, or masses, exudates, or evidence of obstruction, uvula midline. Mucous membranes moist. Neck: Trachea midline, no thyromegaly or masses palpated, and no cervical lymphadenopathy. Supple, full range of motion without nuchal rigidity, or vertebral point tenderness. Chest/axilla: Normal chest wall appearance and motion. Nontender with no deformity. No lesions are appreciated. Cardiovascular: Regular rate and rhythm with a normal S1 and S2. No gallops, murmurs, or rubs. Normal PMI, no JVD. No pulse deficits. Respiratory: Lungs have equal breath sounds bilaterally, clear to auscultation and percussion. No rales, rhonchi or wheezes noted. No increased work of breathing, no retractions or nasal flaring. Abdomen/GI: Soft, with normal bowel sounds. No distension or tympany. No guarding or rebound. No evidence of tenderness throughout. Back: No spinal tenderness. No costovertebral tenderness. Skin: Warm, dry with normal turgor. Normal color with no rashes, no lesions, and no evidence of cellulitis. MS/ Extremity: Pulses equal, no cyanosis. Neurovascular intact. Full, normal range of motion. Neuro: Awake and alert, GCS 15, oriented to person, place, time, and situation. Cranial nerves II-XII grossly intact. Motor strength 5/5 in all extremities. Sensory grossly intact. Psych: Awake, alert, with orientation to person, place and time. Behavior, mood, and affect are within normal limits 05:48 ECG was reviewed by the Attending Physician. EKG at 0 322 sinus bradycardia at the rate of 58 otherwise normal EKG. Vital Signs: 03:20 BP 102 / 85; Pulse 55; Resp 18; Pulse Ox 96% ; cp4 04:00 BP 118 / 75; Pulse 55; Resp 18; Pulse Ox 94% ; cp4 05:00 BP 95 / 73; Pulse 50; Resp 18; Pulse Ox 94% ; cp4 06:00 BP 117 / 65; Pulse 50; Resp 18; Pulse Ox 96% 2 lpm ; cp4 MDM: 03:20 Patient medically screened. sp4 05:46 ED course: Last [facility] 01/17/2023 Findings: 1. Left main; large and normal. 2. LAD; sp4 proximal 80%, mid 80% to 90% and then mid to distal right before the JOHNSON graft, there is 80% stenosis. 3. Left circumflex; very small with proximal 80% stenosis. 4. 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 Graft Study: 1. Patent SVG to PDA and the PDA holds the stent, that is widely patent. 2. Patent SVG to diagonal. 3. Patent JOHNSON to LAD, which seems to be functional as a jump graft to diagonal and then to the LAD. Conclusion: Severe [place] coronary artery disease, multivessel with patent grafts as outlined above. Plan: Medical management. :0. 05:52 Differential diagnosis: acute myocardial infarction, acute pericarditis, anxiety, sp4 coronary artery disease chest wall pain, congestive heart failure esophagitis. HEART Score: History: Slightly Suspicious (0), ECG: Normal (0), Age: > or = 65 years (2), Risk Factors: > or = 3 Risk factors for atherosclerotic disease (2), Troponin: < or = 1 x Normal Limit (0), Total Score = 4. ED course: EXAM DESCRIPTION: Chest Single View CLINICAL HISTORY: CHEST PAIN COMPARISON: Chest x-ray 07/26/2023 TECHNIQUE: Single AP view of the chest. FINDINGS: Lung volumes adequate. Cardiac silhouette is unchanged. No pneumothorax. Unchanged coarse bilateral interstitial markings. No large pleural effusion. No focal consolidation. No acute bony finding. IMPRESSION: 1. No acute cardiopulmonary findings. 2. Unchanged coarse bilateral interstitial markings. . 05:55 The patient was not given aspirin in the Emergency Department. Patient reports taking sp4 aspirin within the past 24 hours. Data reviewed: vital signs, nurses notes, old medical records, lab test result(s), EKG, radiologic studies. ED course: And at this time awaiting for the repeat troponin. 08/07 03:20 Order name: Basic Metabolic Panel; Complete Time: 04:31 sp4 08/07 03:20 Order name: CBC with Diff; Complete Time: 04:11 sp4 08/07 03:20 Order name: LFT's; Complete Time: 04:31 sp08/07 03:20 Order name: Magnesium; Complete Time: 04:31 08/07 03:20 Order name: NT PRO-BNP; Complete Time: 04:31 sp08/07 03:20 Order name: PT-INR; Complete Time: 04:11 sp08/07 03:20 Order name: Troponin HS; Complete Time: 04:31 sp4 08/07 05:36 Order name: Troponin High Sensitivity; Complete Time: 06:27 sp4 08/07 03:20 Order name: XRAY Chest (1 view) 08/07 03:20 Order name: EKG; Complete Time: 03:21 sp08/07 03:20 Order name: Cardiac monitoring; Complete Time: 03:20 08/07 03:20 Order name: EKG - Nurse/Tech; Complete Time: 03:20 sp08/07 03:20 Order name: IV Saline Lock; Complete Time: 03:20 sp08/07 03:20 Order name: Labs collected and sent; Complete Time: 03:20 08/07 03:20 Order name: O2 Per Protocol; Complete Time: 03:21 08/07 03:20 Order name: O2 Sat Monitoring; Complete Time: 03:21 EC:48 Rate is 58 beats/min. Rhythm is regular, Sinus bradycardia. QRS [place] is Normal. MT sp4 interval is normal. QRS interval is normal. QT interval is normal. No Q waves. T waves are Normal. No ST changes noted. Clinical impression: No evidence of ischemia. Interpreted by me. Reviewed by me. Administered Medications: 03:31 Drug: Ondansetron IVP 4 mg IVP once; over 2 minutes Route: IVP; Site: right antecubital;cp4 05:51 Follow up: Response: No adverse reaction cp4 03:31 Drug: LORazepam PO 2 mg PO once Route: PO; cp4 05:51 Follow up: Response: No adverse reaction cp4 03:32 Drug: morphine IVP or IV 4 mg IVP once over 4 mins Route: IVP; Infused Over: 4 mins; cp4 Site: right antecubital; 05:51 Follow up: Response: No adverse reaction cp4 05:51 Drug: NS 0.9% IV 500 ml IV at bolus once Route: IV; Rate: bolus; Site: right cp4 antecubital; 06:40 Follow up: IV Status: Completed infusion; IV Intake: 500ml km8 05:51 Drug: morphine IVP or IV 2 mg IVP once over 4 mins Route: IVP; Infused Over: 4 mins; cp4 Site: right antecubital; 05:52 Follow up: Response: No adverse reaction cp4 Disposition Summary: 08/08/23 06:32 Discharge Ordered Notes: Location: Home sp4 Problem: new sp4 Symptoms: have improved sp4 Condition: Stable sp4 Diagnosis - Chest pain, unspecified sp4 - Non cardiac chest pain sp4 Followup: sp4 - With: Nishant Perez MD - When: 7 - 10 days - Reason: Recheck today's complaints Discharge Instructions: - Discharge Summary Sheet sp4 - Nonspecific Chest Pain, Adult, [id number] sp4 Forms: - Patient Portal Instructions sp4 Signatures: Dispatcher [employer] Willie Lowe, RN RN [email or web address] Yousif Pozo MD MD sp4 Ester Merritt Katie RN [id number] Corrections: (The following items were deleted from the chart) 05:12 04:13 Chest For PE Angio+CT.RAD.BRZ ordered. EDMS EDMS
[2023-08-08 07:16] VITALS: BP 117/65; O2SAT 96
--- NOTE | 2023-08-08 13:04 | RAD REPORT ---
EXAM DESCRIPTION: RAD - Chest Single View - 08/08/2023 3:36 am CLINICAL HISTORY: CHEST PAIN COMPARISON: Chest x-ray 07/26/2023 TECHNIQUE: Single AP view of the chest. FINDINGS: Lung volumes adequate. Cardiac silhouette is unchanged. No pneumothorax. Unchanged coarse bilateral interstitial markings. No large pleural effusion. No focal consolidation. No acute bony finding. IMPRESSION: 1. No acute cardiopulmonary findings. 2. Unchanged coarse bilateral interstitial markings. Electronically signed by: Ramila Connell MD 08/08/2023 04:20 AM CDT Z9 Due to temporary technical issues with the PACS/Fluency reporting system, reports are being signed by the in house radiologists without review as a courtesy to insure prompt reporting. The interpreting radiologist is fully responsible for the content of the report.
--- NOTE | 2023-08-08 16:32 | EKG ---
Test Date: 2023-08-08 Test Time: 03:22:47 Cashier Host/Hostess: WILFREDO MEASUREMENT RESULTS: Intervals: Rate: 58 GA: 168 QRSD: 88 QT: 424 QTc: 416 [place]: P: 6 GA: 168 QRS: 51 T: 44 INTERPRETIVE STATEMENTS: Sinus bradycardia Inferior infarct, age undetermined Abnormal ECG Compared to ECG 07/26/2023 04:26:11 No significant changes Electronically Signed On 08-08-23 16:30:54 CDT by Josse David
== END 2023-08-08 06:44 | disposition home or self-care (01) ==
LOC: ER 03:14
DX: R07.89 Other chest pain (principal); Z95.1 Presence of aortocoronary bypass graft
CPT/HCPCS: 96361; 93005; 85025; 80048; 36415; 83735; 85610; 80076; 84484 ×2; 83880; 71045; 96375; 96374; 99285; J2270; J2405; J7040

== ENCOUNTER 2023-08-16 00:21 | Observation (INO) | payer OTHER ==
[2023-08-16] MEDS ORDERED: LORazepam 2 MG/ML VIAL ONE (01:04)
[2023-08-16] MEDS ORDERED: FUROSEMIDE 40 MG/4 ML VIAL ONE (01:04)
[2023-08-16 01:43] LABS: Absolute Basophils 0.1 K/uL (0-0.5); Absolute Eosinophils 0.1 K/uL (0-0.5); Absolute Lymphocytes (CBC) 1.1 K/uL (0.7-4.9); Absolute Monocytes 0.6 K/uL (0.1-1.3); Absolute Neutrophil 5.1 K/uL (1.8-8.0); Basophils % 0.8 % (0-1.3); Eosinophils % 1.7 % (0-4.4); Hematocrit 39.3 % (39.6-49.0); Hemoglobin 13.3 g/dL (13.6-17.9); Lymphocytes % 16.3 % (15.3-44.8); MCH 31.6 pg (27.0-35.0); MCHC 33.9 g/dL (32.0-36.0); MCV 93.2 fL (80-100); Monocytes % 8.1 % (3.3-12.3); Neutrophils % 73.1 % (41.7-73.7); PT Prothrombin Time 13.1 SECONDS (9.5-12.5); Platelets 228 thou/uL (152-406); Protime INR 1.2; RBC Red Blood Cell Count 4.22 M/uL (4.33-5.43); Red Cell Distribution Width 13.7 % (12.1-15.2)
[2023-08-16 01:54] LABS: Albumin 3.4 g/dL (3.4-5.0); Albumin/Globulin Ratio 0.9 (1.1-1.8); Anion Gap 8.5 mEq/L (5.0-15.0); Bilirubin Direct 0.3 mg/dL (0-0.2); Bilirubin Indirect, Calculated 0.7 mg/dL (0.2-0.8); Globulin 3.7 g/dL (2.3-3.5); Magnesium 1.8 mg/dL (1.6-2.4); Potassium 3.5 mEq/L (3.5-5.1); Protein, Total 7.1 g/dL (6.4-8.2); Troponin High Sensitivity 6.5 pg/mL (<58.9)
[2023-08-16] MEDS ORDERED: HYDROCODONE/APAP 10/325 TAB ONE (02:08)
--- NOTE | 2023-08-16 02:51 | ER ---
Nurse's Notes [facility] Name: Fred Hardy Age: 67 yrs Sex: Male : 1955 Arrival Date: 08/16/2023 Time: 00:21 Bed 3 Private MD: Diagnosis: Cocaine associated agitation, acute stimulant intoxication, dyspnea and bilateral lower extremity edema, Presentation: 08/15 00:28 Chief complaint: EMS states: He called for leg swelling, shortness of breath and high vc1 blood pressure. 00:28 Coronavirus screen: Client denies travel out of the [place] in the last 14 days. At this vc1 time, the client does not indicate any symptoms associated with coronavirus-19. Coronavirus screen: Client denies travel out of the [place] in the last 14 days. At this time, the client does not indicate any symptoms associated with coronavirus-19. Ebola Screen: Patient negative for fever greater than or equal to 101.5 degrees Fahrenheit, and additional compatible Ebola Virus Disease symptoms Patient denies exposure to infectious person. Patient denies travel to an Ebola-affected area in the 21 days before illness onset. No symptoms or risks identified at this time. Initial Sepsis Screen: Does the patient meet any 2 criteria? No. Patient's initial sepsis screen is negative. Does the patient have a suspected source of infection? No. Patient's initial sepsis screen is negative. Risk Assessment: Do you want to hurt yourself or someone else? Patient reports no desire to harm self or others. Onset of symptoms was August 16, 2023. Care prior to arrival: None. Activity prior to arrival: None. Mechanism of Injury: No Mechanism of Injury. 00:28 Method Of Arrival: EMS: [facility] vc1 00:28 Acuity: JOSÉ MIGUEL 3 vc1 Triage Assessment: 00:43 General: Appears in no apparent distress. uncomfortable, Behavior is calm, cooperative, vc1 appropriate for age. Pain: Complains of pain in right leg and left leg Pain does not radiate. Pain currently is 6 out of 10 on a pain scale. Quality of pain is described as pressure. EENT: No deficits noted. No signs and/or symptoms were reported regarding the EENT system. Neuro: Level of Consciousness is awake, alert, obeys commands, Oriented to person, place, time, situation, Appropriate for age restless and hyperactive. Cardiovascular: Edema is 2+ to left ankle, left foot, left toes, right ankle, right foot and right toes. Respiratory: Airway is patent Respiratory effort is even, unlabored, Respiratory pattern is regular, symmetrical, Breath sounds are clear. GI: Abdomen is round obese, Bowel sounds present X 4 quads. Abd is soft and non tender. : No deficits noted. No signs and/or symptoms were reported regarding the genitourinary system. Derm: Skin is intact, is healthy with good turgor, Skin is dry, Skin is normal, Skin temperature is warm. Musculoskeletal: No deficits noted. No signs and/or symptoms reported regarding the musculoskeletal system. Historical: - Allergies: 00:42 IV contrast; vc1 00:42 PENICILLINS; vc1 - PMHx: 00:42 coronary atherosclerosis; Hyperlipidemia; Hypertension; Myocardial infarction; vc1 Transient cerebral ischemia; - PSHx: 00:42 Coronary Angioplasty; Coronary artery bypass graft; umbilical hernia repair; vc1 - Immunization history:: Client reports having NOT received the Covid vaccine. Flu vaccine is not up to date. - Infectious Disease History:: Denies. - Social history:: Smoking status: Patient/guardian denies using tobacco, the patient reports quitting approximately 4 years ago, Patient uses street drugs, cocaine. - Family history:: not pertinent. Screenin:45 Abuse screen: Denies threats or abuse. Nutritional screening: No deficits noted. vc1 Tuberculosis screening: No symptoms or risk factors identified. 00:46 [facility] ED Fall Risk Assessment (Adult) History of falling in the last 3 months, vc1 including since admission No falls in past 3 months (0 pts) Confusion or Disorientation No (0 pts) Intoxicated or Sedated Yes (3 pts) Impaired Gait No (0 pts) Mobility Assist Device Used No (0 pt) Altered Elimination No (0 pt) Score/Fall Risk Level 3 or more points = High Risk Oriented to surroundings, Maintained a safe environment, Educated pt \\T\\ family on fall prevention, incl call for assistance when getting out of bed. Assessment: 01:20 General: Appears uncomfortable, Behavior is cooperative, agitated, anxious. General: PT kd3 administered furosemide and provided a urinal. Pt educated on medications and safety. . Neuro: Level of Consciousness is awake, alert, obeys commands, Oriented to person, place, time, situation. Cardiovascular: Patient's skin is warm and dry. Respiratory: Airway is patent Trachea midline Respiratory effort is even, unlabored, Respiratory pattern is regular, symmetrical. 01:25 General: PT is alert and oriented but is very paranoid and anxious, Pt admits to kd3 snorting an unknown amount of cocaine. Pt administered Ativan for anxiety and agitation. Pt educated on medication. . 01:30 Neuro: Level of Consciousness is awake, alert, confused, Insurance Billing Specialist are equal bilaterally kd3 Moves all extremities. Full function Facial symmetry appears normal. 01:30 Respiratory: Airway is patent Trachea midline Respiratory effort is even, unlabored, kd3 Respiratory pattern is regular, symmetrical. 01:45 General: Pt's sister had arrived to the bedside. PT had told his sister that he needed kd3 to urinate. Pt's sister handed the patient his urinal and stepped outside the door. This RN had walked by the room at that time and asked the sister if everything was OK. Pt's sister informed this RN that the patient needed to urinate and was asking to stand up out of the bed. This RN notified the patient's sister that the patient had received Ativan as well as furosemide and that he could not stand to urinate. Pt has been educated on the subject and had verbally agreed. Pt notified again to not stand up out of the bed. Pt's sister was still standing outside of the room and speaking to the patient while he attempted to urinate. This RN continued on with duties and shortly returned to find the patient being lifted off of the floor by staff members. Pt's sister reports that he has scooted off of the bottom of the bed to get around the side rails that were up on either side of him and had fallen. Pt's sister states "he just wouldn't listen to me". This RN instructed the sister to call for a staff member to stand at bedside to assist with urination to ensure patient safety. Trauma scans ordered by the provider. . 02:44 General: Pt's sister is leaving now. PT moved to a room closer to the nurse station. . kd3 03:12 General: PT is cleaned of incontinence with fresh brief, linen, and gown. PT provided kd3 warm blankets, lights dimmed to minimize stimulation. Pt remains on continuous monitoring and is visible from the nurses station. . 03:17 General: General: Pt continues to be hyperactive in the bed. Pt is seen in the room kd3 moaning and touching his genitals. Redirection attempts fail. PT does also continue to roll in the bed which poses a risk to safety. Pt administered Geodon for extreme agitation, hyperactive behaviors, hypersexuality, and alerted mental status. . 03:34 General: Pt pending transfer to upstairs room. Pt administered Geodon for agitation and vc1 restlessness and will be transported upstairs after patients agitation has decreased and we are able to perform a straight cath for urine. . 04:07 General: Pt woken up for straight cath procedure. Pt urine collected and sent to the kd3 lab. Pt tolerated well. Pt cleaned of incontinent, fresh brief and blankets applied for comfort. Pt remains stable . Vital Signs: 00:28 BP 156 / 96; Pulse 93; Resp 14; Temp 98; Pulse Ox 97% ; Weight 98.88 kg; Height 5 ft. vc1 11 in. ; 01:21 BP 145 / 106; Pulse 84; Resp 17; Pulse Ox 96% on R/A; kd3 02:27 BP 163 / 107; Pulse 98; Resp 19; Pulse Ox 96% on R/A; kd3 04:08 BP 170 / 111; Pulse 95; Resp 15; Pulse Ox 96% on R/A; kd3 00:28 Body Mass Index 30.40 (98.88 kg, 180.34 cm) vc1 [place] Coma Score: 03:01 Eye Response: spontaneous(4). Motor Response: obeys commands(6). Verbal Response: sp4 oriented(5). Total: 15. NIH Stroke Scale Scores: 03:01 NIHSS Score: 0 sp4 ED Course: 00:28 Patient arrived in ED. vc1 00:30 Yousif Pozo MD is Attending Physician. sp4 00:40 Lauren Luciano RN is Primary Nurse. vc1 00:42 Triage completed. vc1 00:45 Arm band placed on right wrist. vc1 00:45 Patient has correct armband on for positive identification. Bed in low position. Call vc1 light in reach. Side rails up X2. shelter monitor on. Pulse ox on. NIBP on. 00:51 Initial lab(s) drawn, by ED staff, sent to lab. Inserted saline lock: 20 gauge in left kd3 antecubital area, using aseptic technique. Blood collected. 00:54 Warm blanket given. vk 00:55 Troponin HS Sent. vk 00:55 NT PRO-BNP Sent. vk 00:55 PT-INR Sent. vk 00:55 Magnesium Sent. vk 00:55 LFT's Sent. vk 00:55 CBC with Diff Sent. vk 00:55 Basic Metabolic Panel Sent. vk 01:06 XRAY Chest (1 view) In Process Unspecified. EDMS 01:55 CT Traumagram (Head C Spine CAP wo con) In Process Unspecified. EDMS 02:50 Isaiah Red MD is Hospitalizing Provider. sp4 03:31 Door closed. Lights dimmed. vk 03:31 Cleaned of incontinence. vk 04:09 Straight cath inserted, using sterile technique, Specimen obtained. Patient tolerated kd3 well. 04:10 Urine Drug Screen Sent. kd3 04:11 No provider procedures requiring assistance completed. kd3 Administered Medications: 01:12 Drug: Ativan IVP 2 mg IVP once Route: IVP; Site: left antecubital; kd3 04:10 Follow up: Response: Adverse reaction, Physician notified; Anxiety increased kd3 01:12 Drug: Furosemide IVP 40 mg IVP once; give over 2 minutes Route: IVP; Site: left kd3 antecubital; 04:11 Follow up: Response: No adverse reaction kd3 02:16 Drug: [place] PO 10 mg-325 mg 1 tabs PO once Route: PO; kd3 04:10 Follow up: Response: No adverse reaction; Pain is decreased kd3 03:17 Drug: Geodon IM 20 mg IM once Route: IM; Site: left gluteus; kd3 04:10 Follow up: Response: No adverse reaction; Anxiety decreased; RASS: Light sedation (-2) kd3 Medication: 00:46 VIS not applicable for this client. vc1 Outcome: 02:51 Decision to Hospitalize by Provider. sp4 05:21 Patient left the ED. kd3 NIH Stroke Scale - NIH Stroke Score Date: 08/16/2023 Time: 03:01 Total Score = 0 10. Dysarthria (speech clarity - read or repeat words) - 0(Normal) 11. Extinction and Inattention (visual/tactile/auditory/spatial/personal) - 0(No abnormality) 1a. Level of Consciousness (LOC) - 0(Alert) 1b. Level of Consciousness (LOC) (Month \\T\\ Age) - 0(Both) 1c. LOC Commands (Open \\T\\ Closes Eyes/Carbon Plant Grinder) - 0(Both) 2. Best Gaze (Lateral Gaze Paresis) - 0(Normal) 3. Visual Field Loss - 0(No visual loss) 4. Facial Palsy - 0(Normal) 5a. Left Arm: Motor (10-second hold) - 0(No drift) 5b. Right Arm: Motor (10-second hold) - 0(No drift) 6a. Left Leg: Motor (5-second hold - always test supine) - 0(No drift) 6b. Right Leg: Motor (5-second hold - always test supine) - 0(No drift) 7. Limb Ataxia (finger/nose \\T\\ heel/mullins - test with eyes open) - 0(Absent) 8. Sensory Loss (pinprick arms/legs/face) - 0(Normal) 9. Best Language: Aphasia (description/naming/reading) - 0(No aphasia) Initials: sp4 Signatures: Dispatcher [employer] EDMS Nereida Martinez RN RN kd3 Lauren Luciano RN RN vc1 Yousif Pozo MD MD sp4 Alejandra Smith Corrections: (The following items were deleted from the chart) 02:36 00:46 [facility] ED Fall Risk Assessment (Adult) History of falling in the last 3 vc1 months, including since admission No falls in past 3 months (0 pts) Confusion or Disorientation No (0 pts) Intoxicated or Sedated No (0 pts) Impaired Gait No (0 pts) Mobility Assist Device Used No (0 pt) Altered Elimination No (0 pt) Score/Fall Risk Level 0 - 2 = Low Risk Oriented to surroundings, Maintained a safe environment, Educated pt \\T\\ family on fall prevention, incl call for assistance when getting out of bed, vc1 03:34 01:20 Respiratory: Airway is patent Trachea midline Respiratory effort is even, kd3 unlabored, Respiratory pattern is regular, symmetrical, kd3 03:44 01:25 General: PT is alert and oriented but is very paranoid and anxious. Pt kd3 administered Ativan for anxiety and agitation. Pt educated on medication. . kd3
--- NOTE | 2023-08-16 02:51 | EDPHYS ---
Physician Documentation [facility] Name: Fred Hardy Age: 67 yrs Sex: Male : 1955 Arrival Date: 08/16/2023 Time: 00:21 Bed 3 Private MD: ED Physician Yousif Pozo HPI: 08/15 00:30 This 67 yrs old Male presents to ER via Unassigned with complaints of sp4 bilateral leg swelling, dyspnea . 02:52 . sp4 02:58 The is a 67-year-old male with past medical history of hyperlipidemia coronary artery sp4 disease hypertension ID TIA and CABG history of THC use and cocaine use. Patient presents with acute dyspnea bilateral lower extremity swelling and agitation with anxiety secondary to recent cocaine abuse. Patient reported he snorted powdered cocaine prior to arrival. Patient's medications include aspirin 81 mg daily, Plavix 75 mg daily, losartan 50 mg daily, alprazolam 0.5 mg twice daily, metoprolol 25 mg p.o. twice daily, rosuvastatin 5 mg p.o. bedtime.. Historical: - Allergies: 00:42 IV contrast; vc1 00:42 PENICILLINS; vc1 - PMHx: 00:42 coronary atherosclerosis; Hyperlipidemia; Hypertension; Myocardial infarction; vc1 Transient cerebral ischemia; - PSHx: 00:42 Coronary Angioplasty; Coronary artery bypass graft; umbilical hernia repair; vc1 - Immunization history:: Client reports having NOT received the Covid vaccine. Flu vaccine is not up to date. - Infectious Disease History:: Denies. - Social history:: Smoking status: Patient/guardian denies using tobacco, the patient reports quitting approximately 4 years ago, Patient uses street drugs, cocaine. - Family history:: not pertinent. ROS: 03:01 Constitutional: Negative for fever, chills, and weight loss, positive for lower sp4 extremity edema bilaterally, positive for shortness of breath, positive for cocaine ingestion prior to arrival. 03:01 All other systems are negative, Exam: 03:01 Constitutional: This is a well developed, well nourished patient who is awake, alert, sp4 anxious appearing male, mild agitation on arrival. Head/Face: Normocephalic, atraumatic. Eyes: Pupils equal round and reactive to light, extra-ocular motions intact. Lids and lashes normal. Conjunctiva and sclera are not injected. Cornea within normal limits. Periorbital areas with no swelling, redness, or edema. ENT: Nares patent. No nasal discharge, no septal abnormalities noted. Tympanic membranes are normal and external auditory canals are clear. Oropharynx with no redness, swelling, or masses, exudates, or evidence of obstruction, uvula midline. Mucous membranes moist. Neck: Trachea midline, no thyromegaly or masses palpated, and no cervical lymphadenopathy. Supple, full range of motion without nuchal rigidity, or vertebral point tenderness. Chest/axilla: Normal chest wall appearance and motion. Nontender with no deformity. No lesions are appreciated. Cardiovascular: Regular rate and rhythm with a normal S1 and S2. No gallops, murmurs, or rubs. Normal PMI, no JVD. No pulse deficits. Respiratory: Lungs have equal breath sounds bilaterally, clear to auscultation and percussion. No rales, rhonchi or wheezes noted. No increased work of breathing, no retractions or nasal flaring. Abdomen/GI: Soft, with normal bowel sounds. No distension or tympany. No guarding or rebound. No evidence of tenderness throughout. Back: No spinal tenderness. No costovertebral tenderness. Skin: Warm, dry with normal turgor. Normal color with no rashes, no lesions, and no evidence of cellulitis. MS/ Extremity: Pulses equal, no cyanosis. Neurovascular intact. Full, normal range of motion. Neuro: Awake and alert, GCS 15, oriented to person, place, time, and situation. Cranial nerves II-XII grossly intact. Motor strength 5/5 in all extremities. Sensory grossly intact. Psych: Awake, alert, with orientation to person, place and time. Behavior, mood, and affect are within normal limits 03:03 ECG was reviewed by the Attending Physician. EKG at 0024 reveals normal sinus rhythm sp4 with a rate of 88. Positive muscle tremor artifact. Otherwise unremarkable. Vital Signs: 00:28 BP 156 / 96; Pulse 93; Resp 14; Temp 98; Pulse Ox 97% ; Weight 98.88 kg; Height 5 ft. vc1 11 in. ; 01:21 BP 145 / 106; Pulse 84; Resp 17; Pulse Ox 96% on R/A; kd3 02:27 BP 163 / 107; Pulse 98; Resp 19; Pulse Ox 96% on R/A; kd3 04:08 BP 170 / 111; Pulse 95; Resp 15; Pulse Ox 96% on R/A; kd3 00:28 Body Mass Index 30.40 (98.88 kg, 180.34 cm) vc1 NIH Stroke Scale Scores: 03:01 NIHSS Score: 0 sp4 [place] Coma Score: 03:01 Eye Response: spontaneous(4). Motor Response: obeys commands(6). Verbal Response: sp4 oriented(5). Total: 15. MDM: 00:31 Patient medically screened. sp4 03:05 ED course: EXAM: XR Chest, 1 View CLINICAL HISTORY: The patient is 67 years old and is sp4 Male; CHEST PAIN TECHNIQUE: Frontal view of the chest. COMPARISON: XR Chest dated August 08 2023 FINDINGS: LUNGS: Mild coarse interstitial markings are present. There is no lobar consolidation. PLEURAL SPACE: Unremarkable. No pneumothorax. HEART: Unremarkable. No cardiomegaly. MEDIASTINUM: Unremarkable. Normal mediastinal contour. BONES/JOINTS: Multilevel degenerative change of the spine is present. No acute fracture. UPPER ABDOMEN: Unremarkable as visualized. IMPRESSION: No acute cardiopulmonary process. . 03:08 Differential Diagnosis altered mental status, sepsis, flu. Data reviewed: vital signs, sp4 nurses notes, EMS record, old medical records, lab test result(s), CBC, electrolytes, hepatic panel, EKG, radiologic studies, CT scan, plain films. Consideration of Admission/Observation Patient was admitted/placed on observation. Escalation of care including admission/observation considered. Management of patient was discussed with the following: Hospitalist: Teofilo KNUTSON . ED course: Positive for acute intoxication secondary to cocaine abuse. Ativan caused further agitation. We have administered Geodon for persistent agitation. Patient also managed to fall down on the room and had to be CAT scan to rule out acute injury secondary to the fall.. 04:04 ED course: CT Trauma Scan - MUSCULOSKELETAL: Chest Wall: No evidence of acute rib or sp4 sternal fracture. Prior median sternotomy postsurgical change. Pelvis: No obvious fracture, severe motion artifact is present. Proximal Appendicular Bones and Joints: No acute fracture or dislocation. Suspected subchondral sclerotic lesion of the superolateral right femoral head. Muscles and Subcutaneous Tissues: No soft tissue injury. IMPRESSION: 1. Significant exam limitations. If there is persistent clinical concern despite negative findings, repeat imaging with radiograph and/or CT is recommended. 2. No acute intracranial abnormality. 3. No acute cervical osseous abnormality. Significantly limited assessment. 4. No acute traumatic injury of the chest, abdomen, or pelvis. Significantly limited assessment. 5. No acute thoracic or lumbar osseous abnormality. Moderately limited assessment. 6. Numerous chronic and incidental findings above. Electronically signed by: iTen Redmond MD 08/16/2023 03:15 AM. 08/15 00:30 Order name: Basic Metabolic Panel; Complete Time: 02:29 [facility] 08/15 00:30 Order name: CBC with Diff; Complete Time: 02:29 [facility] 08/15 00:30 Order name: LFT's; Complete Time: 02:29 [facility] 08/15 00:30 Order name: Magnesium; Complete Time: 02:29 [facility] 08/15 00:30 Order name: NT PRO-BNP; Complete Time: 02:29 [facility] 08/15 00:30 Order name: PT-INR; Complete Time: 02:29 [facility] 08/15 00:30 Order name: Troponin HS; Complete Time: 02:29 [facility] 08/15 03:00 Order name: Alcohol Level [facility] 08/15 03:00 Order name: Urine Drug Screen [facility] 08/15 03:07 Order name: Urinalysis w/ reflexes [facility] 08/15 03:07 Order name: CBC with Automated Diff [facility] 08/15 03:07 Order name: CBC with Automated Diff [facility] 08/15 03:07 Order name: Comprehensive Metabolic Panel [facility] 08/15 03:07 Order name: Comprehensive Metabolic Panel [facility] 08/15 03:07 Order name: Troponin High Sensitivity [facility] 08/15 03:07 Order name: Troponin High Sensitivity [facility] 08/15 03:07 Order name: Troponin High Sensitivity [facility] 08/15 03:07 Order name: Troponin High Sensitivity [facility] 08/15 00:30 Order name: XRAY Chest (1 view) [facility] 08/15 01:31 Order name: CT Traumagram (Head C Spine CAP wo con) [facility] 08/15 00:30 Order name: EKG; Complete Time: 00:31 [facility] 08/15 00:30 Order name: Cardiac monitoring; Complete Time: 00:32 [facility] 08/15 00:30 Order name: EKG - Nurse/Tech; Complete Time: 00:32 [facility] 08/15 00:30 Order name: IV Saline Lock; Complete Time: 00:55 sp4 08/15 00:30 Order name: Labs collected and sent; Complete Time: 00:55 sp4 08/15 00:30 Order name: O2 Per Protocol; Complete Time: 00:38 sp4 08/15 00:30 Order name: O2 Sat Monitoring; Complete Time: 00:38 sp4 08/15 01:08 Order name: Misc. Order: recollect labs; Complete Time: 01:19 kmf EC:03 Rate is 88 beats/min. Rhythm is regular, Normal Sinus Rhythm. QRS [place] is Normal. PA sp4 interval is normal. QRS interval is normal. QT interval is normal. No Q waves. T waves are Normal. No ST changes noted. Clinical impression: No evidence of ischemia. Interpreted by me. Reviewed by me. Administered Medications: 01:12 Drug: Ativan IVP 2 mg IVP once Route: IVP; Site: left antecubital; kd3 04:10 Follow up: Response: Adverse reaction, Physician notified; Anxiety increased kd3 01:12 Drug: Furosemide IVP 40 mg IVP once; give over 2 minutes Route: IVP; Site: left kd3 antecubital; 04:11 Follow up: Response: No adverse reaction kd3 02:16 Drug: [place] PO 10 mg-325 mg 1 tabs PO once Route: PO; kd3 04:10 Follow up: Response: No adverse reaction; Pain is decreased kd3 03:17 Drug: Geodon IM 20 mg IM once Route: IM; Site: left gluteus; kd3 04:10 Follow up: Response: No adverse reaction; Anxiety decreased; RASS: Light sedation (-2) kd3 Disposition Summary: 08/16/23 02:51 Hospitalization Ordered Notes: Hospitalization Status: Observation sp4 Provider: Isaiah Red spSara Location: Telemetry/MedSurg (observation) sp4 Condition: Stable sp4 Problem: new sp4 Symptoms: have improved sp4 Bed/Room Type: Standard sp4 Room Assignment: 201(08/16/23 03:16) vc1 Diagnosis - Cocaine associated agitation, acute stimulant intoxication, dyspnea and bilateral sp4 lower extremity edema, Forms: - Medication Reconciliation Form sp4 - SBAR form sp4 - Leadership Thank You Letter sp4 NIH Stroke Scale - NIH Stroke Score Date: 08/16/2023 Time: 03:01 Total Score = 0 10. Dysarthria (speech clarity - read or repeat words) - 0(Normal) 11. Extinction and Inattention (visual/tactile/auditory/spatial/personal) - 0(No abnormality) 1a. Level of Consciousness (LOC) - 0(Alert) 1b. Level of Consciousness (LOC) (Month \T\ Age) - 0(Both) 1c. LOC Commands (Open \T\ Closes Eyes/Mechanical Estimator) - 0(Both) 2. Best Gaze (Lateral Gaze Paresis) - 0(Normal) 3. Visual Field Loss - 0(No visual loss) 4. Facial Palsy - 0(Normal) 5a. Left Arm: Motor (10-second hold) - 0(No drift) 5b. Right Arm: Motor (10-second hold) - 0(No drift) 6a. Left Leg: Motor (5-second hold - always test supine) - 0(No drift) 6b. Right Leg: Motor (5-second hold - always test supine) - 0(No drift) 7. Limb Ataxia (finger/nose \T\ heel/mullins - test with eyes open) - 0(Absent) 8. Sensory Loss (pinprick arms/legs/face) - 0(Normal) 9. Best Language: Aphasia (description/naming/reading) - 0(No aphasia) Initials: sp4 Signatures: Dispatcher [employer] EDMS Nereida Martinez, RN RN kd3 Lauren Luciano RN RN vc1 Yousif Pozo MD MD sp4 Kaela Diaz [facility] Corrections: (The following items were deleted from the chart) 00:31 00:31 BASIC METABOLIC PANEL+C.LAB.BRZ ordered. EDMS EDMS 00:31 00:31 CBC+H.LAB.BRZ ordered. EDMS EDMS 00:31 00:31 HEPATIC FUNCTION+C.LAB.BRZ ordered. EDMS EDMS 00:31 00:31 MAGNESIUM+C.LAB.BRZ ordered. EDMS EDMS 00:31 00:31 PROBNP+C.LAB.BRZ ordered. EDMS EDMS 00:31 00:31 PROTIME (+INR)+COAG.LAB.BRZ ordered. EDMS EDMS 00:31 00:31 Troponin High Sensitivity+C.LAB.BRZ ordered. EDMS EDMS 03:12 02:51 sp4 kmf 03:16 03:12 221 kmf vc1
[2023-08-16] MEDS ORDERED: ZIPRASIDONE MESYLA 20 MG/VIAL IM ONE (02:59)
[2023-08-16] MEDS ORDERED: ACETAMINOPHEN 325 MG TABLET PO PRN (03:02)
[2023-08-16] MEDS ORDERED: ONDANSETRON 4 MG/2 ML VIAL IV PRN (03:02)
--- NOTE | 2023-08-16 03:07 | P.HP ---
Certification for Inpatient Patient admitted to: Observation With expected LOS: <2 Midnights Practitioner: I am a practitioner with admitting privileges, knowledge of patient current condition, hospital course, and medical plan of care. Services: Services provided to patient in accordance with Admission requirements found in Title 42 Section 412.3 of the Code of Federal Regulations Patient History Date of Service: 08/16/23 Reason for admission: AMS History of Present Illness: 67-year-old male with past medical history of hypertension, hyperlipidemia, coronary artery disease , [place] , TIA and CABG , history of THC use and cocaine use. Patient came in with shortness of breath associated with bilateral lower extremity swelling and agitation secondary to cocaine abuse. At the time of interview patient is altered and cannot offer any history hence most of the history is obtained from the chart review and also talking to the ER physician. Apparently he snorted powdered cocaine prior to coming to ER. Then started having shortness of breath and chest discomfort. Patient was assessed in the ER and was admitted for further management of CHF exacerbation and altered mental status. Patient was really agitated in the ER. Allergies Iodinated Contrast Media Allergy (Verified 01/15/23 22:18) Itching Penicillins Allergy (Verified 01/15/23 22:18) Hives/Rash Home medications list reviewed: Yes Home Medications: Aspirin [Ecotrin 81 MG] 81 mg PO DAILY #30 tab 12/22/22 Clopidogrel Bisulfate [Plavix*] 75 mg PO DAILY #30 tab 12/22/22 Losartan Potassium 50 mg PO DAILY #30 tab 12/22/22 ALPRAZolam [Xanax] 0.5 mg PO BID PRN #30 tab 01/17/23 Metoprolol Tartrate [Lopressor] 25 mg PO BID #60 tab 01/17/23 Rosuvastatin [Crestor] 5 mg PO BEDTIME #30 tab 01/17/23 - Past Medical/Surgical History Diabetic: No Past Medical History: Reviewed- Non-Contributory -: HTN -: HLD -: [place] sp CAB, PCI Past Surgical History: Reviewed- Non-Contributory -: CAB -: PCI Psychosocial/ Personal History: lives alone in an apartment - Social History Smoking Status: Current some day smoker Alcohol use: No CD- Drugs: No Caffeine use: Yes Review of Systems is unable to be obtained Physical Examination - Vital Signs Temperature: 98 F Blood Pressure: 156/90 Pulse: 86 Respirations: 18 Pulse Ox (%): 94 - Physical Exam General: Mild distress, Confused HEENT: Atraumatic, Normocephalic Neck: Supple Respiratory: Clear to auscultation bilaterally, Normal air movement, Crackles/rales Cardiovascular: Regular rate/rhythm, Normal S1 S2, Edema Capillary refill: <2 Seconds Gastrointestinal: Soft and benign, W/out hepatosplenomegaly Musculoskeletal: No clubbing, Swelling Integumentary: No rashes, No breakdown Neurological: Other (Confused ), Abnormal gait, Abnormal speech, Abnormal strength Lymphatics: No axilla or inguinal lymphadenopathy - Studies Laboratory Data (last 24 hrs) 08/16/23 08/16/23 08/16/23 01:17 01:17 01:17 WBC 7.00 Hgb 13.3 L Hct 39.3 L Plt Count 228 PT 13.1 H INR 1.20 Sodium 137 Potassium 3.5 BUN 13 Creatinine 1.16 Glucose 84 Magnesium 1.8 Total Bilirubin 1.0 AST 13 L ALT 15 L Alkaline Phosphatase 88 Assessment and Plan - Problems (Diagnosis) (1) Acute encephalopathy Current Visit: Yes Status: Acute (2) CAD (coronary artery disease) Current Visit: No Status: Acute Plan: Acute encephalopathy possibly toxic Monitor closely under telemetry CT head was negative for any acute changes Neuro vital signs monitored N.p.o. for now Unstable angina with a history of CAD and CABG and PCI Will trend cardiac enzymes Will monitor telemetry EKG did not show any acute changes suggestive of ischemia Will get an echocardiogram Cardiology consult Acute on chronic CHF possibly systolic/diastolic Monitor closely on telemetry Started on diuresis X-ray findings noted Continue home medications Titrate as needed Will obtain an echocardiogram Substance abuse with cocaine Patient still altered Need counseling about substance abuse cessation GI/DVT prophylaxis Advanced directive full code for now Discharge Plan: Home Plan to discharge in: 48 Hours - Advance Directives Does patient have a Living Will: No Does patient have a Durable POA for Healthcare: No Time Spent Managing Pts Care (In Minutes): 48
[2023-08-16] MEDS ORDERED: NA CHLORIDE 0.9% 1,000 ML IV SCH (04:00)
[2023-08-16 04:53] LABS: Barbiturates NEGATIVE (NEGATIVE); Benzodiazepines NEGATIVE (NEGATIVE); Cocaine POSITIVE (NEGATIVE); METHAMPHETAM NEGATIVE (NEGATIVE); Methadone NEGATIVE (NEGATIVE); Opiates NEGATIVE (NEGATIVE); Phencyclidine NEGATIVE (NEGATIVE); THC Cannibis NEGATIVE (NEGATIVE)
[2023-08-16 05:27] VITALS: BMI 28.0
[2023-08-16 05:45] VITALS: O2SAT 97
--- NOTE | 2023-08-16 07:21 | P.PN ---
Subjective Date of Service: 08/16/23 Chief Complaint: AMS Presented with chest pain after cocaine use, noted to have elevated troponin and congestive heart failure, Patient sedated after given Geodon, minimally responds to verbal plan for heart cath today with cardiology Review of Systems per HPI Physical Examination - Vital Signs Temperature: 98 F Blood Pressure: 156/90 Pulse: 86 Respirations: 18 Pulse Ox (%): 94 - Physical Exam General: Other (Sedated minimally response to verbal) HEENT: Atraumatic, Normocephalic Neck: JVD not distended Respiratory: Normal air movement, Diminished Cardiovascular: Normal pulses, Regular rate/rhythm Gastrointestinal: Soft and benign Musculoskeletal: No swelling Integumentary: No breakdown Neurological: Other (Confused,) - Studies Laboratory Data (last 24 hrs) 08/16/23 08/16/23 08/16/23 01:17 01:17 01:17 WBC 7.00 Hgb 13.3 L Hct 39.3 L Plt Count 228 PT 13.1 H INR 1.20 Sodium 137 Potassium 3.5 BUN 13 Creatinine 1.16 Glucose 84 Magnesium 1.8 Total Bilirubin 1.0 AST 13 L ALT 15 L Alkaline Phosphatase 88 Assessment And Plan - Plan CAD (coronary artery disease) Unstable angina with a history of CAD and CABG and PCI Will trend cardiac enzymes, telemetry, echocardiogram ordered Cardiology consult. plan for heart cath today for elevated troponin Acute encephalopathy possibly toxic Monitor closely under telemetry CT head was negative for any acute changes Neuro vital signs monitored N.p.o. for now Acute on chronic CHF possibly systolic/diastolic Monitor closely on telemetry, plan for diuresis Continue home medications Titrate as needed Will obtain an echocardiogram Substance abuse with cocaine Marijuana use Patient still altered Need counseling about substance abuse cessation GI/DVT prophylaxis Advanced directive full code for now Discharge Plan: Home Critical Care: No Time Spent Managing PTS Care (In Minutes): 35
[2023-08-16] MEDS: FUROSEMIDE 20 MG/ 2ML VIAL IV SCH (11:31)
--- NOTE | 2023-08-16 11:44 | P.CNS ---
Date of Consult: 08/16/23 Chief Complaint: AMS History of Present Illness: Patient with PMH of CAD s/p CABG, presented with chest pain, worsening SOB, bilateral lower extremities swelling and agitation after recent cocaine use, patient is only responsive to painful stimuli and refuses to open eye despite multiple attempts. Allergies Iodinated Contrast Media Allergy (Verified 01/15/23 22:18) Itching Penicillins Allergy (Verified 01/15/23 22:18) Hives/Rash Home Medications: Aspirin [Ecotrin 81 MG] 81 mg PO DAILY #30 tab 12/22/22 Clopidogrel Bisulfate [Plavix*] 75 mg PO DAILY #30 tab 12/22/22 Losartan Potassium 50 mg PO DAILY #30 tab 12/22/22 ALPRAZolam [Xanax] 0.5 mg PO BID PRN #30 tab 01/17/23 Metoprolol Tartrate [Lopressor] 25 mg PO BID #60 tab 01/17/23 Rosuvastatin [Crestor] 5 mg PO BEDTIME #30 tab 01/17/23 - Past Medical/Surgical History Diabetic: No -: HTN -: HLD -: [place] sp CAB, PCI -: CAB -: PCI Psychosocial/ Personal History: lives alone in an apartment - Social History Smoking Status: Former smoker Alcohol use: No CD- Drugs: No Caffeine use: Yes Review of Systems is unable to be obtained Physical Examination Temp Pulse Resp BP Pulse Ox 98 F 56 18 156/90 H 94 08/16/23 09:33 08/16/23 11:31 08/16/23 09:33 08/16/23 11:31 08/16/23 09:33 General: Other (reponse to painful stimuli but refuses to open eyes or communicate) HEENT: Atraumatic, PERRLA, Mucous membr. moist/pink, EOMI, Sclerae nonicteric Neck: Supple, 2+ carotid pulse no bruit, No LAD, Without JVD or thyroid abnormality Respiratory: Clear to auscultation bilaterally, Normal air movement Cardiovascular: Regular rate/rhythm, Normal S1 S2, Edema Gastrointestinal: Normal bowel sounds, No tenderness Laboratory Data (last 24 hrs) 08/16/23 08/16/23 08/16/23 01:17 01:17 01:17 WBC 7.00 Hgb 13.3 L Hct 39.3 L Plt Count 228 PT 13.1 H INR 1.20 Sodium 137 Potassium 3.5 BUN 13 Creatinine 1.16 Glucose 84 Magnesium 1.8 Total Bilirubin 1.0 AST 13 L ALT 15 L Alkaline Phosphatase 88 - Problems (1) Bilateral lower extremity edema Current Visit: Yes Status: Acute Plan: agree with IV lasix 20 mg BID. monitor input and output and correct electrolytes. (2) CAD (coronary artery disease) Current Visit: No Status: Acute Plan: patient with history of bypass surgery and recent coronary angiogram done on 01/2023 shows patent grafts, cardiac enzymes are negative so far, no need for further cardiac work up, please advise patient on danger of cocaine use. (3) HTN (hypertension) Current Visit: No Status: Acute Plan: patient BP is high, resume Losartan 50 mg daily Qualifiers: Hypertension type: primary hypertension Qualified Code(s): I10 - Essential (primary) hypertension
--- NOTE | 2023-08-16 13:04 | ECHO ---
HEIGHT: 6 ft 0 in WEIGHT: 207 lb 0 oz DATE OF STUDY: 08/16/[address]: Jamal Red DO 2-DIMENSIONAL: YES M.MODE: YES DOPPLER: YES COLOR FLOW: YES TDS: YES PORTABLE: YES DEFINITY: NO BUBBLE STUDY: NO DIAGNOSIS: CONGESTIVE HEART FAILURE CARDIAC HISTORY: CATHERIZATION: YES SURGERY: YES PROSTHETIC VALVE: NO PACEMAKER: NO MEASUREMENTS (cm) DIASTOLIC (NORMALS) SYSTOLIC (NORMALS) IVSd 0.9 (0.6-1.2) LA Diam 3.2 (1.9-4.0) LVEF 57% LVIDd 3.4 (3.5-5.7) LVIDs 2.4 (2.0-3.5) %FS 29% LVPWd 1.0 (0.6-1.2) Ao Diam 3.1 (2.0-3.7) 2 DIMENSIONAL ASSESSMENT: RIGHT ATRIUM: NORMAL LEFT ATRIUM: NORMAL RIGHT VENTRICLE: NORMAL LEFT VENTRICLE: NORMAL TRICUSPID VALVE: TRACE OF TRICUSPID REGURGITATION MITRAL VALVE: TRACE OF MITRAL REGURGITATION PULMONIC VALVE: NORMAL AORTIC VALVE: NORMAL PERICARDIAL EFFUSION: NONE AORTIC ROOT: NORMAL LEFT VENTRICULAR WALL MOTION: NORMAL. DOPPLER/COLOR FLOW: GRADE I DIASTOLIC DYSFUNCTION. COMMENTS: 1. NORMAL LEFT VENTRICULAR SYSTOLIC FUNCTION, EJECTION FRACTION 60%, NORMAL WALL MOTION. 2. GRADE I DIASTOLIC DYSFUNCTION. 3. INFERIOR VENA CAVA NOT WELL VISUALIZED. TECHNOLOGIST: SHENA CROSS
[2023-08-16 13:54] VITALS: BP 156/90; TEMP 98
--- NOTE | 2023-08-17 06:51 | RAD REPORT ---
EXAM DESCRIPTION: RAD - Chest Single View - 08/16/2023 1:04 am CLINICAL HISTORY: The patient is 67 years old and is Male; CHEST PAIN TECHNIQUE: Frontal view of the chest. COMPARISON: XR Chest dated August 08 2023 FINDINGS: LUNGS: Mild coarse interstitial markings are present. There is no lobar consolidation. PLEURAL SPACE: Unremarkable. No pneumothorax. HEART: Unremarkable. No cardiomegaly. MEDIASTINUM: Unremarkable. Normal mediastinal contour. BONES/JOINTS: Multilevel degenerative change of the spine is present. No acute fracture. UPPER ABDOMEN: Unremarkable as visualized. IMPRESSION: No acute cardiopulmonary process. Electronically signed by: Honey Gomes MD 08/16/2023 01:46 AM CDT RP Due to temporary technical issues with the PACS/Fluency reporting system, reports are being signed by the in house radiologists without review as a courtesy to insure prompt reporting. The interpreting radiologist is fully responsible for the content of the report.
--- NOTE | 2023-08-17 06:58 | RAD REPORT ---
EXAM DESCRIPTION: CT - Head C Spine Cap Wo Con - 08/16/2023 7:10 am CLINICAL HISTORY: Male, 67 years old, fall acute COMPARISON: CT head and brain MRI 07/26/2023 TECHNIQUE: CT acquisition of the head without contrast. CT acquisition of the cervical spine without contrast. CT acquisition of the chest, abdomen, and pelvis without contrast. Coronal and sagittal re formatted images provided. Coronal and sagittal reformats provided. This exam was performed according to departmental dose-optimization program which includes automated exposure control, adjustment of t he mA and/or kV according to patient size, and/or use of iterative reconstruction technique. FINDINGS: SUPPORTIVE DEVICES: None. HEAD: Brain: No evidence of intracranial hemorrhage, mass effect, midline shift, edema, or extra-axial flui d collection. Patchy areas of hypodensity are noted throughout the cerebral white matter most likely due to chronic microvascular ischemic changes. More focal hypodensities redemonstrated within the rig ht mei radiata and left basal ganglia. CSF Spaces: Unremarkable. Skull: The calvarium is intact. Soft tissue: No evidence of scalp or soft tissue injury. Other: The imaged facial bones are intact. The globes and orbits are unremarkable. The visualized par anasal sinuses and mastoid cells are clear. Multiple absent teeth and carious lesions, including a la rge left mandibular molar periapical lucency. CERVICAL SPINE: Motion artifact significantly limits assessment. Morphology: No obvious fracture or compression deformity. Alignment: No traumatic listhesis. Craniocervical Junction: Intact with degenerative change. Disc Levels: Multilevel degenerative changes. Other: No acute finding of the neck soft tissues. Lack of intravenous contrast limits evaluation of the abdominal and pelvic viscera and vascular struc tures. Beam hardening from arms down positioning results in decreased [id number] and further triana its interpretation. CHEST: Vasculature: No noncontrast evidence of injury. Mild aortic and branch vessel atherosclerosis. Heart and Pericardium: Normal heart size. No pericardial effusion. Post-CABG change with severe nativ e coronary atherosclerosis. Mediastinum: No mediastinal hematoma. Unremarkable esophagus. Lungs and Airways: No pulmonary contusion or laceration. Mild peripheral scarring/atelectasis in the mid to lower lungs. Pleural Space: No pneumothorax or hemothorax. ABDOMEN/PELVIS: Liver: No evidence of liver injury. Gallbladder/Biliary System: Calcified stone within the gallbladder lumen. No evident wall thickening or ductal dilation. Pancreas: No evidence of pancreatic injury. Spleen: No evidence of splenic injury. Adrenals: Unremarkable. Kidneys and Ureters: No evidence of injury. Right extrarenal pelvis and mild bilateral ureteral promi nence. Bladder: No gross bladder contusion or obvious rupture. Reproductive Organs: Unremarkable as visualized. Vasculature: No noncontrast evidence of injury. Aortic and branch vessel atherosclerosis. Mesentery and Peritoneum: No hemoperitoneum or pneumoperitoneum. Bowel: Atraumatic appearance. Dense rectal stool. THORACIC AND LUMBAR SPINE: Morphology: No fracture. Vertebral body heights are normal. Alignment: No traumatic listhesis. Disc Levels: Moderate multilevel degenerative changes. MUSCULOSKELETAL: Chest Wall: No evidence of acute rib or sternal fracture. Prior median sternotomy postsurgical change . Pelvis: No obvious fracture, severe motion artifact is present. Proximal Appendicular Bones and Joints: No acute fracture or dislocation. Suspected subchondral scler otic lesion of the superolateral right femoral head. Muscles and Subcutaneous Tissues: No soft tissue injury. IMPRESSION: 1. Significant exam limitations. If there is persistent clinical concern despite negat bryan findings, repeat imaging with radiograph and/or CT is recommended. 2. No acute intracranial abnormality. 3. No acute cervical osseous abnormality. Significantly limited assessment. 4. No acute traumatic injury of the chest, abdomen, or pelvis. Significantly limited assessment. 5. No acute thoracic or lumbar osseous abnormality. Moderately limited assessment. 6. Numerous chronic and incidental findings above. Electronically signed by: Tien Redmond MD 08/16/2023 03:15 AM CDT Due to temporary technical issues with the PACS/Fluency reporting system, reports are being signed by the in house radiologists without review as a courtesy to insure prompt reporting. The interpreting radiologist is fully responsible for the content of the report.
--- NOTE | 2023-08-20 15:09 | EKG ---
Test Date: 2023-08-16 Test Time: 00:24:20 Cutting Table Operator: WILFREDO MEASUREMENT RESULTS: Intervals: Rate: 88 MO: 184 QRSD: 80 QT: 378 QTc: 457 [place]: P: 79 MO: 184 QRS: 53 T: 49 INTERPRETIVE STATEMENTS: Sinus rhythm with premature supraventricular complexes and fusion complexes Inferior infarct, age undetermined Abnormal ECG Compared to ECG 08/08/2023 03:22:47 Atrial premature complex(es) now present Fusion complex(es) now present Sinus bradycardia no longer present Myocardial infarct finding still present Electronically Signed On 08-20-23 14:56:38 CDT by Nishant Perez
== END 2023-08-16 15:04 | disposition home or self-care (01) ==
LOC: ER 00:21 → ERHOLD 03:02 → 2ND 04:26
PROVIDERS: ADMIT Family Medicine; ATTEND Hospitalist
DX: G93.40 Encephalopathy, unspecified (principal); I50.9 Heart failure, unspecified; I25.10 Atherosclerotic heart disease of native coronary artery without angina pectoris; I25.2 Old myocardial infarction; I20.0 Unstable angina; I10 Essential (primary) hypertension; F15.129 Other stimulant abuse with intoxication, unspecified; F14.129 Cocaine abuse with intoxication, unspecified; R45.1 Restlessness and agitation; E78.5 Hyperlipidemia, unspecified; R06.02 Shortness of breath; R22.43 Localized swelling, mass and lump, lower limb, bilateral; F17.210 Nicotine dependence, cigarettes, uncomplicated; R79.89 Other specified abnormal findings of blood chemistry; Z86.73 Personal history of transient ischemic attack (TIA), and cerebral infarction without residual deficits; Z95.1 Presence of aortocoronary bypass graft; Z88.0 Allergy status to penicillin; Z88.8 Allergy status to other drugs, medicaments and biological substances; Z79.82 Long term (current) use of aspirin
CPT/HCPCS: 93005; 93306; 85025; 80048; 36415; 83735; 85610; 80076; 84484 ×3; 83880; 80307; 70450; 71250; 72125; 71045; 51702; 96375; 96372; 96374; 99285; 82077; J1940 ×2; J3486; G0378 ×2

== ENCOUNTER 2023-09-11 17:38 | Emergency (ER) | payer OTHER ==
[2023-09-11 20:50] LABS: Absolute Basophils 0.1 K/uL (0-0.5); Absolute Eosinophils 0.2 K/uL (0-0.5); Absolute Monocytes 0.6 K/uL (0.1-1.3); Absolute Neutrophil 3.1 K/uL (1.8-8.0); Basophils % 1.4 % (0-1.3); Eosinophils % 3.9 % (0-4.4); Hematocrit 40.5 % (39.6-49.0); Hemoglobin 13.4 g/dL (13.6-17.9); Lymphocytes % 33.9 % (15.3-44.8); MCH 31.1 pg (27.0-35.0); MCHC 33.2 g/dL (32.0-36.0); MCV 93.8 fL (80-100); MPV 9.1 fL (7.6-11.3); Monocytes % 9.4 % (3.3-12.3); Neutrophils % 51.4 % (41.7-73.7); Nucleated Red Blood Cells % 0.1 % (0-0); Platelets 201 thou/uL (152-406); RBC Red Blood Cell Count 4.32 M/uL (4.33-5.43); Red Cell Distribution Width 13.8 % (12.1-15.2)
[2023-09-11 21:38] LABS: Anion Gap 5.8 mEq/L (5.0-15.0); Potassium 3.8 mEq/L (3.5-5.1); Troponin High Sensitivity 4.3 pg/mL (<58.9)
--- NOTE | 2023-09-11 23:32 | ER ---
Nurse's Notes [facility] Name: Fred Hardy Age: 67 yrs Sex: Male : 1955 Arrival Date: 09/11/2023 Time: 17:38 Bed 5 Private MD: Diagnosis: Chest pain, unspecified Presentation: 09/10 19:26 Chief complaint: Patient states: Chest pain and neck pain "couple of hours" [employer] SERVICES INTERN. eb1 19:26 Method Of Arrival: Ambulatory eb1 20:00 Coronavirus screen: Vaccine status: Patient reports having had a previously documented ha1 Covid positive illness. Ebola Screen: No symptoms or risks identified at this time. Initial Sepsis Screen: Does the patient meet any 2 criteria? No. Patient's initial sepsis screen is negative. Does the patient have a suspected source of infection? No. Patient's initial sepsis screen is negative. Risk Assessment: Do you want to hurt yourself or someone else? Patient reports no desire to harm self or others. Onset of symptoms was September 11, 2023. 20:00 Acuity: JOSÉ MIGUEL 2 ha1 Historical: - Allergies: 19:28 PENICILLINS; eb1 19:28 IV contrast; eb1 - PMHx: 19:28 Hypertension; Hyperlipidemia; coronary atherosclerosis; Myocardial infarction; eb1 Transient cerebral ischemia; - PSHx: 19:28 heart stent; Coronary Angioplasty; Coronary artery bypass graft; umbilical hernia eb1 repair; - Immunization history:: Adult Immunizations unknown. - Infectious Disease History:: Denies. - Social history:: Smoking status: unknown. Screenin:25 [facility] ED Fall Risk Assessment (Adult) History of falling in the last 3 months, ha1 including since admission No falls in past 3 months (0 pts) Confusion or Disorientation No (0 pts) Intoxicated or Sedated No (0 pts) Impaired Gait No (0 pts) Mobility Assist Device Used No (0 pt) Altered Elimination No (0 pt) Score/Fall Risk Level 0 - 2 = Low Risk Oriented to surroundings, Maintained a safe environment, Educated pt \\T\\ family on fall prevention, incl call for assistance when getting out of bed, Hourly rounding (assess needs \\T\\ fall precautionary measures) done. Abuse screen: Denies threats or abuse. Denies injuries from another. Nutritional screening: No deficits noted. Tuberculosis screening: No symptoms or risk factors identified. Assessment: 19:25 General: Appears distressed, Behavior is calm, cooperative. Pain: Complains of pain in ha1 chest Pain does not radiate. Pain currently is 8 out of 10 on a pain scale. Quality of pain is described as heavy, pressure, Pain began 1 day ago. Neuro: Level of Consciousness is awake, alert, obeys commands, Oriented to person, place, time, situation. Cardiovascular: Reports chest pain, Heart tones S1 S2 present Capillary refill < 3 seconds Patient's skin is warm and dry. Rhythm is sinus rhythm. Respiratory: Airway is patent Respiratory effort is even, unlabored, Respiratory pattern is regular, symmetrical. GI: No signs and/or symptoms were reported involving the gastrointestinal system. : No signs and/or symptoms were reported regarding the genitourinary system. 20:20 Reassessment: Patient and/or family updated on plan of care and expected duration. Pain ha1 level reassessed. Patient is alert, oriented x 3, equal unlabored respirations, skin warm/dry/pink. 21:25 Reassessment: Patient and/or family updated on plan of care and expected duration. Pain ha1 level reassessed. Patient is alert, oriented x 3, equal unlabored respirations, skin warm/dry/pink. 22:20 Reassessment: Patient and/or family updated on plan of care and expected duration. Pain ha1 level reassessed. Patient is alert, oriented x 3, equal unlabored respirations, skin warm/dry/pink. 23:00 Reassessment: Patient and/or family updated on plan of care and expected duration. Pain ha1 level reassessed. Patient is alert, oriented x 3, equal unlabored respirations, skin warm/dry/pink. Vital Signs: 19:00 BP 107 / 58; Pulse 61; Resp 16; Temp 97.1; Pulse Ox 94% ; Weight 92.99 kg; Height 5 ft. eb1 0 in. ; Pain 8/10; 19:23 BP 99 / 75; Pulse 58; Resp 17 S; Pulse Ox 93% on R/A; ha1 20:20 BP 119 / 67; Pulse 51; Resp 17 S; Pulse Ox 96% on R/A; ha1 21:25 BP 111 / 67; Pulse 48; Resp 17 S; Pulse Ox 94% on R/A; ha1 22:00 BP 99 / 67; Pulse 49; Resp 18 S; Pulse Ox 94% on R/A; ha1 23:00 BP 113 / 72; Pulse 53; Resp 17 S; Pulse Ox 96% on R/A; ha1 19:00 Body Mass Index 40.04 (92.99 kg, 152.4 cm) eb1 19:00 Pain Scale: Adult eb1 ED Course: 19:20 Patient arrived in ED. rg4 19:21 Joel Shah DO is Attending Physician. ms3 19:21 Patient has correct armband on for positive identification. Placed in gown. Bed in low ha1 position. Call light in reach. Side rails up X 1. 19:21 Client placed on continuous cardiac and pulse oximetry monitoring. NIBP monitoring ha1 applied. pvc monitor on. 19:21 Door closed. Noise minimized. Warm blanket given. Pillow given. ha1 19:21 Arm band placed on right wrist. ha1 19:45 Inserted saline lock: 20 gauge in right forearm, using aseptic technique. Blood ha1 collected. 20:01 Triage completed. ha1 20:01 O2 via room air. ha1 20:41 Attending Physician role handed off by Joel Shah DO sp3 20:41 Andrew Soto MD is Attending Physician. sp3 21:34 Chest Single View In Process Unspecified. EDTX 21:45 Miriam Garcia RN is Primary Nurse. ha1 23:52 No provider procedures requiring assistance completed. IV discontinued, intact, ha1 bleeding controlled, No redness/swelling at site. Pressure dressing applied. 23:52 Provided Education on: following up with field service poultry technician . ha1 Administered Medications: No medications were administered Medication: 20:42 VIS not applicable for this client. ha1 Outcome: 23:32 Discharge ordered by . sp3 23:52 Discharged to home ambulatory, ha1 23:52 Condition: stable 23:52 Discharge instructions given to patient, Instructed on discharge instructions, follow up and referral plans. Demonstrated understanding of instructions, follow-up care, 23:53 Patient left the ED. ha1 Signatures: Dispatcher [employer] EDElisa Rueda rg4 Corrine Robertson RN RN eb1 Joel Shah DO DO ms3 Andrew Soto MD MD sp3 Garcia, Miriam, RN RN ha1
--- NOTE | 2023-09-11 23:33 | EDPHYS ---
Physician Documentation [facility] Name: Fred Hardy Age: 67 yrs Sex: Male : 1955 Arrival Date: 09/11/2023 Time: 17:38 Bed 5 Private MD: ED Physician Andrew Soto HPI: 09/10 19:22 This 67 yrs old Male presents to ER via Unassigned with complaints of Chest Pain. ms3 19:22 67-year-old male with past medical history of cardiac bypass presents to the emergency ms3 department for chest pain, neck pain that has been ongoing for 5 years. Patient states he did take 2 aspirin today. Patient denies any alleviating or inciting factors.. Historical: - Allergies: 19:28 PENICILLINS; eb1 19:28 IV contrast; eb1 - PMHx: 19:28 Hypertension; Hyperlipidemia; coronary atherosclerosis; Myocardial infarction; eb1 Transient cerebral ischemia; - PSHx: 19:28 heart stent; Coronary Angioplasty; Coronary artery bypass graft; umbilical hernia eb1 repair; - Immunization history:: Adult Immunizations unknown. - Infectious Disease History:: Denies. - Social history:: Smoking status: unknown. ROS: 19:22 Constitutional: Negative for fever, and chills. Neck: Negative for injury, pain, and ms3 swelling, 19:22 Respiratory: Negative for shortness of breath, cough, wheezing, and pleuritic chest pain, Abdomen/GI: Negative for abdominal pain, nausea, vomiting, diarrhea, and constipation, MS/Extremity: Negative for injury and deformity, Skin: Negative for injury, rash, and discoloration, 19:22 Cardiovascular: Positive for chest pain, Exam: 19:22 ECG was reviewed by the Attending Physician. ms3 19:22 Constitutional: This is a well developed, well nourished patient who is awake, alert, ms3 and in no acute distress. Neck: Trachea midline, no cervical lymphadenopathy. Supple, full range of motion without nuchal rigidity, or vertebral point tenderness. No Meningismus. Chest/axilla: Normal chest wall appearance and motion. Nontender with no deformity. Cardiovascular: Regular rate and rhythm with a normal S1 and S2. No gallops, murmurs, or rubs. Normal PMI, no JVD. No pulse deficits. Respiratory: Lungs have equal breath sounds bilaterally, clear to auscultation and percussion. No rales, rhonchi or wheezes noted. No increased work of breathing, no retractions or nasal flaring. Abdomen/GI: Soft, non-tender, with normal bowel sounds. No distension or tympany. No guarding or rebound. No evidence of tenderness throughout. Skin: Warm, dry with normal turgor. Normal color with no rashes, no lesions, and no evidence of cellulitis. MS/ Extremity: Pulses equal, no cyanosis. Neurovascular intact. Full, normal range of motion. Vital Signs: 19:00 BP 107 / 58; Pulse 61; Resp 16; Temp 97.1; Pulse Ox 94% ; Weight 92.99 kg; Height 5 ft. eb1 0 in. ; Pain 8/10; 19:23 BP 99 / 75; Pulse 58; Resp 17 S; Pulse Ox 93% on R/A; ha1 20:20 BP 119 / 67; Pulse 51; Resp 17 S; Pulse Ox 96% on R/A; ha1 21:25 BP 111 / 67; Pulse 48; Resp 17 S; Pulse Ox 94% on R/A; ha1 22:00 BP 99 / 67; Pulse 49; Resp 18 S; Pulse Ox 94% on R/A; ha1 23:00 BP 113 / 72; Pulse 53; Resp 17 S; Pulse Ox 96% on R/A; ha1 19:00 Body Mass Index 40.04 (92.99 kg, 152.4 cm) eb1 19:00 Pain Scale: Adult eb1 MDM: 19:21 Patient medically screened. ms3 19:22 Differential diagnosis: abnormal EKG, acute myocardial infarction, coronary artery ms3 disease pneumonia. 20:55 Transition of care: After a detail discussion of the patient's case, care is ms3 transferred to Andrew Soto MD. 21:37 Data reviewed: vital signs, nurses notes. ED course: 67-year-old male with chest pain sp3 signed out to me by Dr. Shah at change of shift. Probable low risk chest pain based on heart score which is pending. If initial troponin negative will obtain second troponin and if negative safely discharge patient home to cardiology follow-up. Patient currently resting comfortably no acute distress sleeping.. 23:30 ED course: Repeat troponin negative we will safely discharge him home at this time. sp3 Follow-up with cardiology return here for any worsening symptoms or further concerns. Repeat EKG demonstrates no change.. 09/10 20:45 Order name: Troponin High Sensitivity: Draw 2 hours after first; Complete Time: 23:29 sp3 09/10 21:05 Order name: CBC with Automated Diff EDMS 09/10 21:06 Order name: Basic Metabolic Panel; Complete Time: 22:50 EDMS 09/10 21:06 Order name: Troponin High Sensitivity; Complete Time: 22:50 EDMS 09/10 21:06 Order name: Chest Single View EDMS 09/10 19:21 Order name: EKG; Complete Time: 21:06 ms3 09/10 22:51 Order name: EKG; Complete Time: 22:51 sp3 09/10 19:21 Order name: Cardiac monitoring; Complete Time: 19:24 ms3 09/10 19:21 Order name: EKG - Nurse/Tech; Complete Time: 19:24 ms3 09/10 19:21 Order name: IV Saline Lock; Complete Time: 19:24 ms3 09/10 19:21 Order name: Labs collected and sent; Complete Time: 19:24 ms3 09/10 19:21 Order name: O2 Per Protocol; Complete Time: 19:24 ms3 09/10 19:21 Order name: O2 Sat Monitoring; Complete Time: 19:24 ms3 09/10 22:51 Order name: EKG - Nurse/Tech; Complete Time: 22:58 sp3 EC:22 Rate is 56 beats/min. Rhythm is regular. QRS [place] is Normal. [place] interval is normal. QRS ms3 interval is normal. Clinical impression: Sinus bradycardia. Interpreted by me. Reviewed by me. Administered Medications: No medications were administered Disposition Summary: 09/11/23 23:32 Discharge Ordered Notes: Location: Home sp3 Condition: Stable sp3 Diagnosis - Chest pain, unspecified sp3 Followup: sp3 - With: Private Physician - When: Upon discharge from the Emergency Department - Reason: Continuance of care Discharge Instructions: - Discharge Summary Sheet sp3 - Nonspecific Chest Pain, Adult sp3 Forms: - Medication Reconciliation Form sp3 - Antibiotic Education sp3 - Prescription Opioid Use sp3 - Patient Portal Instructions sp3 - Leadership Thank You Letter sp3 Signatures: Dispatcher [employer] Corrine Mccallum RN RN eb1 Joel Shah DO DO ms3 Andrew Soto MD MD sp3 Miriam Garcia, RN RN ha1 Corrections: (The following items were deleted from the chart) 21: 21:06 Troponin High Sensitivity+C.LAB.BRZ ordered. EDMS EDMS : 21:06 Chest Single View+RAD.RAD.BRZ ordered. EDMS EDMS : 21:06 BASIC METABOLIC PANEL+C.LAB.BRZ ordered. EDMS EDMS : 21: CBC+H.LAB.BRZ ordered. EDMS EDMS : 21:06 Troponin High Sensitivity+C.LAB.BRZ ordered. EDMS EDMS
[2023-09-12 02:27] VITALS: TEMP 97.1
[2023-09-12 02:44] VITALS: BP 113/72; O2SAT 96
--- NOTE | 2023-09-12 12:10 | EKG ---
Test Date: 2023-09-11 Test Time: 22:55:04 Field Party Manager: VERNON MEASUREMENT RESULTS: Intervals: Rate: 55 [place]: 144 QRSD: 84 QT: 456 QTc: 436 [place]: P: -8 [place]: 144 QRS: 54 T: 53 INTERPRETIVE STATEMENTS: Sinus bradycardia with sinus arrhythmia Inferior infarct, possibly acute ACUTE [place] Abnormal ECG Compared to ECG 08/16/2023 00:24:20 Sinus rhythm no longer present Atrial premature complex(es) no longer present Fusion complex(es) no longer present Myocardial infarct finding still present Electronically Signed On 09-12-23 12:09:30 CDT by Josse David
--- NOTE | 2023-09-12 12:11 | EKG ---
Test Date: 2023-09-11 Test Time: 17:54:41 Enterprise Solutions Architect: MEASUREMENT RESULTS: Intervals: Rate: 56 [place]: 174 QRSD: 88 QT: 440 QTc: 424 [place]: P: 63 [place]: 174 QRS: 59 T: 53 INTERPRETIVE STATEMENTS: Sinus bradycardia Inferior infarct, age undetermined Abnormal ECG Compared to ECG 08/16/2023 00:24:20 Sinus rhythm no longer present Atrial premature complex(es) no longer present Fusion complex(es) no longer present Myocardial infarct finding still present Electronically Signed On 09-12-23 12:10:07 CDT by Josse David
--- NOTE | 2023-09-12 12:12 | RAD REPORT ---
EXAM DESCRIPTION: RAD - Chest Single View - 09/11/2023 9:32 pm CLINICAL HISTORY: PAIN TECHNIQUE: Frontal view of the chest. COMPARISON: XR Chest dated 08/16/2023 FINDINGS: Lungs: Coarsened interstitial markings. Patchy left basilar opacification. Pleural space: Unremarkable. No pneumothorax. Heart: Unremarkable. No cardiomegaly. Mediastinum: Unremarkable. Normal mediastinal contour. Bones/joints: Unremarkable. No acute fracture. IMPRESSION: Patchy left basilar opacification (atelectasis and/or infiltrate). Electronically signed by: Bernadette Verde MD 09/11/2023 09:51 PM CDT Due to temporary technical issues with the PACS/Fluency reporting system, reports are being signed by the in house radiologist without review as a courtesy to ensure prompt reporting. The interpreting r adiologist is fully responsible for the content of the report.
== END 2023-09-11 23:53 | disposition home or self-care (01) ==
LOC: ER 17:38
DX: R07.9 Chest pain, unspecified (principal); M54.2 Cervicalgia; Z88.0 Allergy status to penicillin; I10 Essential (primary) hypertension; E78.5 Hyperlipidemia, unspecified; I25.10 Atherosclerotic heart disease of native coronary artery without angina pectoris; Z95.5 Presence of coronary angioplasty implant and graft; I21.9 Acute myocardial infarction, unspecified; G45.9 Transient cerebral ischemic attack, unspecified
CPT/HCPCS: 36415; 71045; 80048; 84484; 85025; 93005; 99285

== ENCOUNTER 2023-10-23 21:39 | Emergency (ER) | payer OTHER ==
[2023-10-23 23:35] LABS: Absolute Basophils 0.1 K/uL (0-0.5); Absolute Eosinophils 0.2 K/uL (0-0.5); Absolute Lymphocytes (CBC) 1.6 K/uL (0.7-4.9); Absolute Monocytes 0.5 K/uL (0.1-1.3); Absolute Neutrophil 4.3 K/uL (1.8-8.0); Basophils % 1.2 % (0-1.3); Eosinophils % 3.3 % (0-4.4); Hematocrit 46.6 % (39.6-49.0); Hemoglobin 15.3 g/dL (13.6-17.9); Lymphocytes % 23.5 % (15.3-44.8); MCH 30.8 pg (27.0-35.0); MCHC 32.9 g/dL (32.0-36.0); MCV 93.5 fL (80-100); MPV 8.4 fL (7.6-11.3); Monocytes % 7.5 % (3.3-12.3); Neutrophils % 64.5 % (41.7-73.7); Nucleated Red Blood Cells % 0.1 % (0-0); Platelets 241 thou/uL (152-406); RBC Red Blood Cell Count 4.98 M/uL (4.33-5.43); Red Cell Distribution Width 13.8 % (12.1-15.2)
[2023-10-23 23:42] LABS: PT Prothrombin Time 10.5 SECONDS (9.4-12.5); Protime INR 0.94
[2023-10-23 23:54] LABS: ALT/SGPT 18 U/L (16-61); AST/SGOT 14 U/L (15-37); Albumin 3.5 g/dL (3.4-5.0); Albumin/Globulin Ratio 0.9 (1.1-1.8); Alkaline Phosphatase 94 U/L (45-117); Anion Gap 9.6 mEq/L (5.0-15.0); BUN Blood Urea Nitrogen 14 mg/dL (7-18); Bicarbonate 26 mEq/L (21-32); Bilirubin Total 0.4 mg/dL (0.2-1.0); Glomerular Filtration Rate 82 ml/min (=/>90); Glucose Level 83 mg/dL (74-106); Magnesium 2.2 mg/dL (1.6-2.4); NT PRO-BNP 273 pg/mL (<125); Potassium 3.6 mEq/L (3.5-5.1); Protein, Total 7.5 g/dL (6.4-8.2); Sodium Level 140 mEq/L (136-145); Troponin High Sensitivity 6.9 pg/mL (<58.9)
[2023-10-23 23:56] LABS: Bilirubin Direct < 0.2 mg/dL (0-0.2); Bilirubin Indirect, Calculated 0.2 mg/dL (0.2-0.8)
[2023-10-24] MEDS ORDERED: ALPRAZOLAM 1 MG TABLET ONE (01:02)
--- NOTE | 2023-10-24 01:26 | ER ---
Nurse's Notes [facility] Name: Fred Hardy Age: 67 yrs Sex: Male : 1955 Arrival Date: 10/23/2023 Time: 21:39 Bed DX3 Private MD: Diagnosis: Anxiety disorder, unspecified;Chest pain, unspecified Presentation: 10/22 22:10 Coronavirus screen: Vaccine status: Patient reports being unvaccinated. Ebola Screen: tm6 Patient negative for fever greater than or equal to 101.5 degrees Fahrenheit, and additional compatible Ebola Virus Disease symptoms Patient denies exposure to infectious person. Patient denies travel to an Ebola-affected area in the 21 days before illness onset. No symptoms or risks identified at this time. Initial Sepsis Screen: Does the patient meet any 2 criteria? No. Patient's initial sepsis screen is negative. Does the patient have a suspected source of infection? No. Patient's initial sepsis screen is negative. Risk Assessment: Do you want to hurt yourself or someone else? Patient reports no desire to harm self or others. 22:10 Method Of Arrival: Ambulatory tm6 22:10 Chief complaint: Patient states: been out of xanax for 2 days, doctor has not been able tm6 to refill. When I wake up from sleeping, I don't know where I am. My body hurts, my chest hurts, my neck hurts. I feel lost. Onset of symptoms was October 20, 2023. 22:10 Acuity: JOSÉ MIGUEL 3 tm6 Triage Assessment: 22:21 General: Appears uncomfortable, Behavior is cooperative, anxious. Pain: Complains of tm6 pain in back and chest Pain currently is 8 out of 10 on a pain scale. EENT: No signs and/or symptoms were reported regarding the EENT system. Neuro: Level of Consciousness is awake, alert, obeys commands, Oriented to person, place, time, situation. Cardiovascular: Reports chest pain, Patient's skin is warm and dry. Rhythm is regular Chest pain. Cardiovascular: Rhythm is sinus bradycardia. Respiratory: Airway is patent Respiratory effort is even, unlabored, Respiratory pattern is regular, symmetrical. GI: No signs and/or symptoms were reported involving the gastrointestinal system. Abdomen is flat, non-distended. : No signs and/or symptoms were reported regarding the genitourinary system. Derm: No signs and/or symptoms reported regarding the dermatologic system. Musculoskeletal: Reports pain in back and neck. Historical: - Allergies: 22:11 IV contrast; tm6 22:11 PENICILLINS; tm6 - PMHx: 22:11 Hyperlipidemia; coronary atherosclerosis; Hypertension; Myocardial infarction; tm6 Transient cerebral ischemia; Anxiety; - PSHx: 22:11 Coronary Angioplasty; Coronary artery bypass graft; heart stent; umbilical hernia tm6 repair; - Immunization history:: Adult Immunizations not immunized. - Infectious Disease History:: Denies. - Social history:: Smoking status: Patient denies any tobacco usage or history of. Patient/guardian denies using alcohol. Screenin/21 01:37 [facility] ED Fall Risk Assessment (Adult) History of falling in the last 3 months, vc1 including since admission No falls in past 3 months (0 pts) Confusion or Disorientation No (0 pts) Intoxicated or Sedated No (0 pts) Impaired Gait No (0 pts) Mobility Assist Device Used No (0 pt) Altered Elimination No (0 pt) Score/Fall Risk Level 0 - 2 = Low Risk Oriented to surroundings, Maintained a safe environment, Educated pt \T\ family on fall prevention, incl call for assistance when getting out of bed. Abuse screen: Denies threats or abuse. Nutritional screening: No deficits noted. Tuberculosis screening: No symptoms or risk factors identified. Assessment: 01:37 Reassessment: Patient and/or family updated on plan of care and expected duration. Pain vc1 level reassessed. Patient is alert, oriented x 3, equal unlabored respirations, skin warm/dry/pink. Patient denies pain at this time. Patient states feeling better. Patient states symptoms have improved. Vital Signs: 10/22 22:09 BP 125 / 82; Pulse 61; Resp 23; Temp 98(O); Pulse Ox 96% on R/A; Weight 90.72 kg; tm6 Height 6 ft. 0 in. ; Pain 8/; 10/23 01:38 BP 124 / 80; Pulse 60; Resp 18; Pulse Ox 98% ; vc1 10/22 22:09 Body Mass Index 27.12 (90.72 kg, 182.88 cm) tm6 10/22 22:09 Pain Scale: Adult 6 ED Course: 10/22 21:41 Patient arrived in ED. jj6 21:56 Lori Rojas PA-C is PHCP. sb4 21:56 Gilmar Miranda MD is Attending Physician. sb4 22:11 Triage completed. tm6 22:20 Arm band placed on right wrist. EKG completed in triage. Results shown to MD. tm6 22:59 XRAY Chest (1 view) In Process Unspecified. EDMS 23:15 Basic Metabolic Panel Sent. vk 23:15 CBC with Diff Sent. vk 23:15 LFT's Sent. vk 23:15 Magnesium Sent. vk 23:15 Troponin HS Sent. vk 23:15 PT-INR Sent. vk 23:15 NT PRO-BNP Sent. vk 23:15 Missed attempt(s): 22 gauge in right forearm. vk 23:16 Missed attempt(s): 22 gauge in left antecubital area. vk 23:16 Initial lab(s) drawn, by ED staff, sent to lab. vk 23:27 Inserted saline lock: 22 gauge in left forearm, using aseptic technique. Blood oe collected. Flushed with 10 mL NS. 23:38 Basic Metabolic Panel Sent. vc1 23:38 CBC with Diff Sent. vc1 23:38 LFT's Sent. vc1 23:38 Magnesium Sent. vc1 23:38 NT PRO-BNP Sent. vc1 23:38 PT-INR Sent. vc1 23:38 Troponin HS Sent. vc1 10/23 01:25 Ariel Mobley MD is Referral Physician. sb4 01:37 No provider procedures requiring assistance completed. IV discontinued, intact, vc1 bleeding controlled, No redness/swelling at site. Pressure dressing applied. Patient maintains SpO2 saturation greater than 95% on room air. Administered Medications: 01:09 Drug: ALPRAZolam PO Tablet 1 mg PO once Route: PO; cg Medication: 01:37 VIS not applicable for this client. vc1 Outcome: 01:25 Discharge ordered by . sb4 01:37 Discharged to home ambulatory, with significant other, vc1 01:37 Condition: good 01:37 Discharge instructions given to patient, Instructed on discharge instructions, follow up and referral plans. Demonstrated understanding of instructions, follow-up care, medications, Prescriptions given X 1, 01:38 Patient left the ED. vc1 Signatures: Dispatcher [employer] Anay Mina RN RN Lemuel Mancia Jennifer jj6 Lauren Luciano, RN RN vc1 Lori Rojas PA-C PA-C sb4 Charly Silva RN RN tm6 Alejandra Smith
--- NOTE | 2023-10-24 01:26 | EDPHYS ---
Physician Documentation [facility] Name: Fred Hardy Age: 67 yrs Sex: Male : 1955 Arrival Date: 10/23/2023 Time: 21:39 Bed DX3 Private MD: ED Physician Gilmar Miranda HPI: 10/22 22:30 This 67 yrs old Male presents to ER via Ambulatory with complaints of Chest Pain, sb4 Shortness Of Breath, Anxiety. 22:30 chest pain that began this morning upon waking with radiating to left arm and sb4 associated shortness of breath. states he gets this pain somewhat frequently, is usually secondary to anxiety, and relieved with xanax. states he has been out of his xanax for 2 days now and does not have an appointment to see his PCP for another 2 weeks. Historical: - Allergies: 22:11 IV contrast; tm6 22:11 PENICILLINS; tm6 - PMHx: 22:11 Hyperlipidemia; coronary atherosclerosis; Hypertension; Myocardial infarction; tm6 Transient cerebral ischemia; Anxiety; - PSHx: 22:11 Coronary Angioplasty; Coronary artery bypass graft; heart stent; umbilical hernia tm6 repair; - Immunization history:: Adult Immunizations not immunized. - Infectious Disease History:: Denies. - Social history:: Smoking status: Patient denies any tobacco usage or history of. Patient/guardian denies using alcohol. ROS: 22:30 Constitutional: Negative for fever, chills, and weight loss, sb4 22:30 Cardiovascular: Positive for chest pain, 22:30 Respiratory: Positive for shortness of breath, 22:30 Psych: Positive for anxiety, 22:30 All other systems are negative, Exam: 22:30 Head/Face: Normocephalic, atraumatic. Eyes: Extra-ocular motions intact. Periorbital sb4 areas with no swelling, redness, or edema. ENT: Mucous membranes moist. Cardiovascular: Regular rate and rhythm with a normal S1 and S2. Respiratory: Lungs have equal breath sounds bilaterally, clear to auscultation and percussion. No rales, rhonchi or wheezes noted. No increased work of breathing, no retractions or nasal flaring. Abdomen/GI: Soft, non-tender, no distension. Skin: Warm, dry with normal turgor. Normal color with no rashes, no lesions, and no evidence of cellulitis. MS/ Extremity: Pulses equal, no cyanosis. Neurovascular intact. Full, normal range of motion. 22:30 Constitutional: The patient appears alert, awake, anxious, Vital Signs: 22:09 BP 125 / 82; Pulse 61; Resp 23; Temp 98(O); Pulse Ox 96% on R/A; Weight 90.72 kg; tm6 Height 6 ft. 0 in. ; Pain 10/12; 10/23 01:38 BP 124 / 80; Pulse 60; Resp 18; Pulse Ox 98% ; vc1 10/22 22:09 Body Mass Index 27.12 (90.72 kg, 182.88 cm) tm6 10/22 22:09 Pain Scale: Adult tm6 MDM: 10/22 21:58 Patient medically screened. sb4 23:57 Data reviewed: vital signs, nurses notes, lab test result(s), EKG, radiologic studies, sb4 and as a result, I will discharge patient. Scoring Tools HEART Score: History: ECG: Age: Risk Factors: > or = 3 Risk factors for atherosclerotic disease (2), Troponin: Total Score = 4. Counseling: I had a detailed discussion with the patient and/or guardian regarding the historical points, exam findings, and any diagnostic results supporting the discharge/admit diagnosis, lab results, radiology results, to return to the emergency department if symptoms worsen or persist or if there are any questions or concerns that arise at home. 10/22 22:18 Order name: Basic Metabolic Panel; Complete Time: 23:56 sb4 10/22 22:18 Order name: CBC with Diff; Complete Time: 23:40 sb4 10/22 22:18 Order name: LFT's; Complete Time: 23:56 sb4 10/22 22:18 Order name: Magnesium; Complete Time: 23:56 sb4 10/22 22:18 Order name: NT PRO-BNP; Complete Time: 23:56 sb4 10/22 22:18 Order name: PT-INR; Complete Time: 23:47 sb4 10/22 22:18 Order name: Troponin HS; Complete Time: 23:56 sb4 10/22 22:18 Order name: XRAY Chest (1 view) sb4 10/22 22:18 Order name: EKG - Nurse/Tech; Complete Time: 22:20 sb4 10/22 22:18 Order name: IV Saline Lock; Complete Time: 23:38 sb4 10/22 22:18 Order name: Labs collected and sent; Complete Time: 23:38 sb4 10/22 22:18 Order name: O2 Per Protocol; Complete Time: 23:38 sb4 10/22 22:18 Order name: O2 Sat Monitoring; Complete Time: 23:38 sb4 EC:25 Rate is 54 beats/min. Rhythm is regular, Sinus bradycardia. [place] interval is normal at sb4 144 msec. QRS interval is normal at 88 msec. QT interval is normal at 413 msec. No Q waves. T waves are Normal. No ST changes noted. Clinical impression: Sinus bradycardia and No evidence of ischemia. Interpreted by me. Reviewed by me. Administered Medications: 10/23 01:09 Drug: ALPRAZolam PO Tablet 1 mg PO once Route: PO; cg Disposition: 10/24 01:19 Co-signature as Attending Physician, Gilmar Miranda MD I agree with the assessment and samantha plan of care. Disposition Summary: 10/24/23 01:25 Discharge Ordered Notes: Location: Home sb4 Problem: an acute exacerbation sb4 Symptoms: have improved sb4 Condition: Stable sb4 Diagnosis - Anxiety disorder, unspecified sb4 - Chest pain, unspecified sb4 Followup: sb4 - With: Ariel Mobley MD - When: 2 - 3 days - Reason: Recheck today's complaints, Re-evaluation by your physician Discharge Instructions: - Discharge Summary Sheet sb4 - Nonspecific Chest Pain, Adult, [place] sb4 - Managing Anxiety, Adult sb4 Forms: - Patient Portal Instructions sb4 - Leadership Thank You Letter sb4 Prescriptions: - alprazolam 0.5 mg Oral tablet - take 1 tablet ORAL route daily As needed; 5 tablet; Refills: 0, Product sb4 Selection Permitted Signatures: Dispatcher [employer] Gilmar Castellanos MD MD cha Garcia, Cindy RN RN Lori Arceo PA-C PA-C sb4 Charly Silva RN RN tm6 Corrections: (The following items were deleted from the chart) 10/22 22:18 22:18 BASIC METABOLIC PANEL+C.LAB.BRZ ordered. EDMS EDMS 22:18 22:18 CBC+H.LAB.BRZ ordered. EDMS EDMS 22:18 22:18 HEPATIC FUNCTION+C.LAB.BRZ ordered. EDMS EDMS 22:18 22:18 MAGNESIUM+C.LAB.BRZ ordered. EDMS EDMS 22:18 22:18 PROBNP+C.LAB.BRZ ordered. EDMS EDMS 22:18 22:18 PROTIME (+INR)+COAG.LAB.BRZ ordered. EDMS EDMS 22:18 22:18 Troponin High Sensitivity+C.LAB.BRZ ordered. EDMS EDMS 22:18 22:18 Chest Single View+RAD.RAD.BRZ ordered. EDMS EDMS 10/23 01:30 08 22:18 Cardiac monitoring ordered. sb4 vc1
[2023-10-24 02:35] VITALS: TEMP 98
[2023-10-24 02:38] VITALS: BP 124/80; O2SAT 98
--- NOTE | 2023-10-24 16:56 | EKG ---
Test Date: 2023-10-23 Test Time: 22:21:42 Manager Development: DEEDEE MEASUREMENT RESULTS: Intervals: Rate: 54 WA: 144 QRSD: 88 QT: 418 QTc: 396 [place]: P: 13 WA: 144 QRS: 42 T: 39 INTERPRETIVE STATEMENTS: Sinus bradycardia Inferior infarct, age undetermined Abnormal ECG Compared to ECG 09/11/2023 22:55:04 Sinus arrhythmia no longer present Myocardial infarct finding still present Electronically Signed On 10-24-23 16:55:38 CDT by Josse David
--- NOTE | 2023-10-24 17:46 | RAD REPORT ---
EXAM DESCRIPTION: RAD - Chest Single View - 10/23/2023 10:56 pm CLINICAL HISTORY: Chest pain. TECHNIQUE: Frontal view of the chest. COMPARISON: XR Chest 09/11/2023. FINDINGS: Lungs: Coarsened interstitial markings. No focal consolidation. Pleural space: Unremarkable. No pneumothorax. Heart: The cardiac silhouette is mildly enlarged, stable, in part accentuated by portable technique . Mediastinum: Unremarkable. Normal mediastinal contour. Bones/joints: Unremarkable. No acute fracture. IMPRESSION: No acute disease. Electronically signed by: Bernadette Verde MD 10/23/2023 11:13 PM CDT RP Due to temporary technical issues with the PACS/Fluency reporting system, reports are being signed by the in house radiologists without review as a courtesy to insure prompt reporting. The interpreting radiologist is fully responsible for the content of the report.
== END 2023-10-24 01:38 | disposition home or self-care (01) ==
LOC: ER 21:39
DX: F41.9 Anxiety disorder, unspecified (principal); I10 Essential (primary) hypertension; I25.2 Old myocardial infarction; Z95.1 Presence of aortocoronary bypass graft; Z98.61 Coronary angioplasty status; Z95.818 Presence of other cardiac implants and grafts
CPT/HCPCS: 36415; 71045; 80048; 80076; 83735; 83880; 84484; 85025; 85610; 93005

== ENCOUNTER 2024-02-24 16:19 | Observation (INO) | payer OTHER ==
[2024-02-24] MEDS ORDERED: ASPIRIN 81 MG CHEWABLE TABLET ONE (16:47)
[2024-02-24] MEDS ORDERED: NA CHLORIDE 0.9% 500 ML ONE (16:48)
[2024-02-24 17:16] LABS: SARS-CoV-2 Antigen CONTROL BLUE LINE VIS/BG OK; SARS-CoV-2 Antigen Rapid Res Negative (Negative)
[2024-02-24 17:20] LABS: Absolute Basophils 0.1 K/uL (0-0.5); Absolute Eosinophils 0.2 K/uL (0-0.5); Absolute Lymphocytes (CBC) 1.3 K/uL (0.7-4.9); Absolute Monocytes 0.3 K/uL (0.1-1.3); Absolute Neutrophil 3.3 K/uL (1.8-8.0); Basophils % 1.2 % (0-1.3); Eosinophils % 3.4 % (0-4.4); Hematocrit 45.4 % (39.6-49.0); Hemoglobin 15.2 g/dL (13.6-17.9); Lymphocytes % 24.4 % (15.3-44.8); MCH 30.9 pg (27.0-35.0); MCHC 33.4 g/dL (32.0-36.0); MCV 92.4 fL (80-100); MPV 8.3 fL (7.6-11.3); Monocytes % 5.9 % (3.3-12.3); Neutrophils % 65.1 % (41.7-73.7); Platelets 222 thou/uL (152-406); RBC Red Blood Cell Count 4.91 M/uL (4.33-5.43); Red Cell Distribution Width 13.4 % (12.1-15.2)
[2024-02-24 17:44] LABS: ALT/SGPT 23 U/L (16-61); AST/SGOT 19 U/L (15-37); Albumin 2.8 g/dL (3.4-5.0); Albumin/Globulin Ratio 0.7 (1.1-1.8); Alkaline Phosphatase 99 U/L (45-117); Anion Gap 10.8 mEq/L (5.0-15.0); BUN Blood Urea Nitrogen 17 mg/dL (7-18); Bicarbonate 24 mEq/L (21-32); Bilirubin Total 0.2 mg/dL (0.2-1.0); Glomerular Filtration Rate 65 ml/min (=/>90); Glucose Level 137 mg/dL (74-106); Lipase 29 U/L (13-75); NT PRO-BNP 76 pg/mL (<125); Potassium 3.8 mEq/L (3.5-5.1); Protein, Total 6.8 g/dL (6.4-8.2); Sodium Level 140 mEq/L (136-145); Troponin High Sensitivity 5.4 pg/mL (<58.9)
[2024-02-24 17:47] LABS: Bilirubin Direct < 0.2 mg/dL (0-0.2)
--- NOTE | 2024-02-24 17:53 | RAD REPORT ---
EXAMINATION: ONE VIEW CHEST XR CLINICAL INDICATION: DYSPNEA TECHNIQUE: Frontal chest projection is submitted. Examination is limited by patient positioning and t echnique. COMPARISON: No prior exam. FINDINGS: Mild pulmonary edema suspected. The heart is moderately enlarged. No displaced fractures identified. IMPRESSION: Mild CHF.
[2024-02-24 17:59] LABS: PT Prothrombin Time 10.9 SECONDS (9.4-12.5); Protime INR 0.97
--- NOTE | 2024-02-24 18:13 | ER ---
Nurse's Notes [facility] Name: Fred Hardy Age: 68 yrs Sex: Male : 1955 Arrival Date: 02/24/2024 Time: 16:19 Bed 20 Private MD: Diagnosis: Dyspnea;Chest pain, unspecified;Anxiety disorder, unspecified;Cocaine abuse;Cocaine abuse with cocaine-induced anxiety disorder Presentation: 02/23 16:28 Chief complaint: Chief complaint: Patient states: I got upset at [employer] and became tm6 very short of breath and am having trouble breathing. I took my alprazolam about 20 min ago. 16:28 Coronavirus screen: Client denies travel out of the [place] in the last 14 days. Ebola tm6 Screen: Patient negative for fever greater than or equal to 101.5 degrees Fahrenheit, and additional compatible Ebola Virus Disease symptoms Patient denies exposure to infectious person. Patient denies travel to an Ebola-affected area in the 21 days before illness onset. No symptoms or risks identified at this time. Initial Sepsis Screen: Does the patient meet any 2 criteria? RR > 20 per min. Does the patient have a suspected source of infection? No. Patient's initial sepsis screen is negative. Risk Assessment: Do you want to hurt yourself or someone else? Patient reports no desire to harm self or others. Onset of symptoms was February 24, 2024 at 16:00. 16:28 Method Of Arrival: Ambulatory tm6 16:28 Acuity: JOSÉ MIGUEL 3 tm6 Triage Assessment: 16:29 General: Appears uncomfortable, Behavior is cooperative. Pain: Denies pain. EENT: No tm6 signs and/or symptoms were reported regarding the EENT system. Neuro: Level of Consciousness is awake, alert, obeys commands, Oriented to person, place, time, situation. Cardiovascular: Reports shortness of breath, Patient's skin is warm and dry. Respiratory: Reports shortness of breath labored breathing Onset: The symptoms/episode began/occurred about 20 min ago, the patient has mild shortness of breath. GI: No signs and/or symptoms were reported involving the gastrointestinal system. Abdomen is flat, non-distended. : No signs and/or symptoms were reported regarding the genitourinary system. Derm: No signs and/or symptoms reported regarding the dermatologic system. Musculoskeletal: No signs and/or symptoms reported regarding the musculoskeletal system. Historical: - Allergies: 16:29 IV contrast; tm6 16:29 PENICILLINS; tm6 - PMHx: 16:29 Anxiety; coronary atherosclerosis; Hyperlipidemia; Hyperlipidemia; Hypertension; tm6 Myocardial infarction; Transient cerebral ischemia; - PSHx: 16:29 Coronary Angioplasty; Coronary artery bypass graft; heart stent; umbilical hernia tm6 repair; - Immunization history:: Flu vaccine is not up to date. - Infectious Disease History:: Denies. - Social history:: Smoking status: Patient denies any tobacco usage or history of. Screenin:10 [facility] ED Fall Risk Assessment (Adult) History of falling in the last 3 months, bp including since admission No falls in past 3 months (0 pts) Confusion or Disorientation No (0 pts) Intoxicated or Sedated No (0 pts) Impaired Gait No (0 pts) Mobility Assist Device Used No (0 pt) Altered Elimination No (0 pt) Score/Fall Risk Level 0 - 2 = Low Risk Oriented to surroundings. Abuse screen: Denies threats or abuse. Denies injuries from another. Nutritional screening: No deficits noted. Tuberculosis screening: No symptoms or risk factors identified. Assessment: 16:30 General: Appears in no apparent distress. Behavior is cooperative, appropriate for age, bp anxious. Cardiovascular: Rhythm is sinus rhythm. Respiratory: Airway is patent Respiratory effort is even, unlabored, Breath sounds are clear bilaterally. 18:30 Reassessment: Patient appears in no apparent distress at this time. Patient is alert, bp oriented x 3, equal unlabored respirations, skin warm/dry/pink. 18:55 Reassessment: REPORT FAXED TO 211. bp Vital Signs: 16:28 BP 150 / 96; Pulse 83; Resp 25; Pulse Ox 97% on R/A; MAP 109 mmHg; Weight 97.52 kg; tm6 Height 6 ft. 0 in. ; Pain 0/10; 16:44 Temp 97.3(TE); iw 16:28 Body Mass Index 29.16 (97.52 kg, 182.88 cm) tm6 16:28 Pain Scale: Adult tm6 [place] Coma Score: 18:27 Eye Response: spontaneous(4). Motor Response: obeys commands(6). Verbal Response: samantha oriented(5). Total: 15. ED Course: 16:20 Patient arrived in ED. ra3 16:23 Gilmar Miranda MD is Attending Physician. samantha 16:28 Nilay Pineda, IZABELLA is Primary Nurse. bp 16:29 Triage completed. tm6 16:30 Arm band placed on right wrist. tm6 16:50 Initial lab(s) drawn, Repeat lab(s) drawn. sent to lab. First set of blood cultures bp drawn by me, Second set of blood cultures drawn. 17:05 Inserted saline lock: 20 gauge in right forearm, using aseptic technique. Blood bp collected. Flushed with 10 mL NS. 17:10 Patient has correct armband on for positive identification. bp 17:50 XRAY Chest (1 view) In Process Unspecified. EDMS 18:12 Prince Encarnacion MD is Hospitalizing Provider. samantha 18:19 UDS Sent. hb 18:19 Urinalysis w/ reflexes Sent. hb 19:47 Provided Education on: NEED FOR ADMIT. kj2 19:48 No provider procedures requiring assistance completed. kj2 19:49 Patient admitted, IV remains in place. kj2 Administered Medications: 16:45 Drug: Aspirin PO Chewable Tablet 81 mg PO once Route: PO; bp 19:15 Follow up: Response: No adverse reaction kj2 17:05 Drug: NS 0.9% IV 500 ml 500 ml IV at 1 bolus once; to be given as a bolus over 30 bp minutes Volume: 500 ml; Route: IV; Rate: 1 bolus; Site: right forearm; 18:00 Drug: NS 0.9% IV (30 ml/kg) 30 ml/kg IV at bolus once; Sepsis Protocol; to be given as bp a bolus over 90 minutes Route: IV; Rate: bolus; Site: right forearm; 19:30 Follow up: IV Status: Completed infusion; IV Intake: 1000ml kj2 18:15 Drug: levofloxacin IVPB 500 mg 100 ml IVPB once over 60 mins Volume: 100 ml; Route: bp IVPB; Infused Over: 60 mins; Site: right forearm; 19:15 Follow up: IV Status: Completed infusion; IV Intake: 100ml kj2 18:15 Drug: LevOfloxacin PO 250 mg PO once Route: PO; bp 19:40 Follow up: Response: No adverse reaction kj2 18:30 Drug: Famotidine IVP 20 mg IVP once; dilute with 10 mL 0.9% NaCl; give over 2 minutes bp Route: IVP; Site: right forearm; 19:45 Follow up: Response: No adverse reaction kj2 18:30 Drug: Ativan IVP 1 mg IVP once Route: IVP; Site: right forearm; bp 19:15 Follow up: Response: No adverse reaction kj2 18:30 Drug: Clopidogrel PO 75 mg PO once Route: PO; bp 19:45 Follow up: Response: No adverse reaction kj2 18:30 Drug: Enoxaparin Sub-Q 90 mg Sub-Q once Route: Sub-Q; Site: right lower abdomen; bp 19:15 Follow up: Response: No adverse reaction kj2 18:30 Drug: Losartan PO 50 mg PO once Route: PO; bp 19:15 Follow up: Response: No adverse reaction kj2 Medication: 19:47 VIS not applicable for this client. kj2 Intake: 19:15 IV: 100ml; Total: 100ml. kj2 19:30 IV: 1000ml; Total: 1100ml. kj2 Outcome: 18:12 Decision to Hospitalize by Provider. samantha 19:48 Admitted to Med/surg accompanied by tech, via wheelchair, kj2 19:48 Condition: stable 19:48 Instructed on the need for admit, 19:50 Patient left the ED. kj2 Signatures: Dispatcher [employer] EDGilmar Dunn MD MD cha Williams, Irene, RN Jannet Hess RN RN hb Peltier, Brian RN Charly Wong RN RN tm6 Alva, Ruby ra Kizzy Brown RN RN kj2 Corrections: (The following items were deleted from the chart) 16:29 16:28 Chief complaint: tm6 tm6 16:31 16:28 Chief complaint: Patient states: I got upset at [employer] and became very short tm6 of breath and am having trouble breathing Chief complaint: Patient states: I got upset at [employer] and became very short of breath and am having trouble breathing tm6
--- NOTE | 2024-02-24 18:13 | EDPHYS ---
Physician Documentation [facility] Name: Fred Hardy Age: 68 yrs Sex: Male : 1955 Arrival Date: 02/24/2024 Time: 16:19 Bed 20 Private MD: ED Physician Gilmar Miranda HPI: 02/23 18:04 This 68 yrs old Male presents to ER via Ambulatory with complaints of samantha Breathing Difficulty. 18:04 The patient has shortness of breath with light activity, during emotionally upset. samantha Onset: The symptoms/episode began/occurred just prior to arrival. Duration: The symptoms are continuous, but are steadily getting better. The patient's shortness of breath has no apparent modifying factors. Associated signs and symptoms: Pertinent positives: non-productive cough. Severity of symptoms: At their worst the symptoms were mild in the emergency department the symptoms have resolved. The patient has experienced similar episodes in the past, several times. Historical: - Allergies: 16:29 IV contrast; tm6 16:29 PENICILLINS; tm6 - PMHx: 16:29 Anxiety; coronary atherosclerosis; Hyperlipidemia; Hyperlipidemia; Hypertension; tm6 Myocardial infarction; Transient cerebral ischemia; - PSHx: 16:29 Coronary Angioplasty; Coronary artery bypass graft; heart stent; umbilical hernia tm6 repair; - Immunization history:: Flu vaccine is not up to date. - Infectious Disease History:: Denies. - Social history:: Smoking status: Patient denies any tobacco usage or history of. ROS: 18:05 Constitutional: Negative for fever, chills, and weight loss, Eyes: Negative for injury, samantha pain, redness, and discharge, ENT: Negative for injury, pain, and discharge, Neck: Negative for injury, pain, and swelling, Abdomen/GI: Negative for abdominal pain, nausea, vomiting, diarrhea, and constipation, Back: Negative for injury and pain, : Negative for injury, bleeding, discharge, and swelling, MS/Extremity: Negative for injury and deformity, Skin: Negative for injury, rash, and discoloration, Neuro: Negative for headache, weakness, numbness, tingling, and seizure, Psych: Negative for depression, anxiety, suicide ideation, homicidal ideation, and hallucinations, Allergy/Immunology: Negative for hives, rash, and allergies, Endocrine: Negative for neck swelling, polydipsia, polyuria, polyphagia, and marked weight changes, Hematologic/Lymphatic: Negative for swollen nodes, abnormal bleeding, and unusual bruising, 18:05 Cardiovascular: Positive for chest pain, of the chest, 18:05 Respiratory: Positive for shortness of breath, Exam: 18:05 Constitutional: This is a well developed, well nourished patient who is awake, alert, samantha and in no acute distress. Head/Face: Normocephalic, atraumatic. Eyes: Pupils equal round and reactive to light, extra-ocular motions intact. Lids and lashes normal. Conjunctiva and sclera are non-icteric and not injected. Cornea within normal limits. Periorbital areas with no swelling, redness, or edema. ENT: Nares patent. No nasal discharge, no septal abnormalities noted. Tympanic membranes are normal and external auditory canals are clear. Oropharynx with no redness, swelling, or masses, exudates, or evidence of obstruction, uvula midline. Mucous membranes moist. Neck: Trachea midline, no thyromegaly or masses palpated, and no cervical lymphadenopathy. Supple, full range of motion without nuchal rigidity, or vertebral point tenderness. No Meningismus. Chest/axilla: Normal chest wall appearance and motion. Nontender with no deformity. No lesions are appreciated. Cardiovascular: Regular rate and rhythm with a normal S1 and S2. No gallops, murmurs, or rubs. Normal PMI, no JVD. No pulse deficits. Respiratory: Lungs have equal breath sounds bilaterally, clear to auscultation and percussion. No rales, rhonchi or wheezes noted. No increased work of breathing, no retractions or nasal flaring. Abdomen/GI: Soft, non-tender, with normal bowel sounds. No distension or tympany. No guarding or rebound. No evidence of tenderness throughout. Back: No spinal tenderness. No costovertebral tenderness. Full range of motion. Male : Normal genitalia with no discharge or lesions. Skin: Warm, dry with normal turgor. Normal color with no rashes, no lesions, and no evidence of cellulitis. MS/ Extremity: Pulses equal, no cyanosis. Neurovascular intact. Full, normal range of motion., bilateral aka Neuro: Awake and alert, GCS 15, oriented to person, place, time, and situation. Cranial nerves II-XII grossly intact. Motor strength 5/5 in all extremities. Sensory grossly intact. Cerebellar exam normal. Normal gait. Psych: Awake, alert, with orientation to person, place and time. Behavior, mood, and affect are within normal limits. 18:05 ECG was reviewed by the Attending Physician. Vital Signs: 16:28 BP 150 / 96; Pulse 83; Resp 25; Pulse Ox 97% on R/A; MAP 109 mmHg; Weight 97.52 kg; tm6 Height 6 ft. 0 in. ; Pain 0/10; 16:44 Temp 97.3(TE); iw 16:28 Body Mass Index 29.16 (97.52 kg, 182.88 cm) tm6 16:28 Pain Scale: Adult tm6 Herscher Coma Score: 18:27 Eye Response: spontaneous(4). Motor Response: obeys commands(6). Verbal Response: samantha oriented(5). Total: 15. MDM: 16:23 Medical Screening Exam initiated samantha 18:07 Differential diagnosis: Anemia Anxiety Reaction Bronchitis CHF exacerbation, Chronic samantha Obstructive Pulmonary Disease acute myocardial infarction, anxiety, chest wall pain, Cholelithiasis costochondritis, esophagitis, gastritis, gastroesophageal reflux disease (GERD), pancreatitis, peptic ulcer disease, pericarditis, pleurisy, pneumonia, pneumothorax, pulmonary embolus, stable angina, thoracic aortic disection, unstable angina, Myocardial Infarction pneumonia, Pneumothorax Psychogenic pulmonary edema, Pulmonary Embolism reactive airway disease, Sepsis. Antibiotic administration: Not indicated. Differential Diagnosis flu. HEART Score: History: Moderately Suspicious (1), ECG: Non specific repolarization disturbance / LBTB / PM (1), Age: > or = 65 years (2), Risk Factors: > or = 3 Risk factors for atherosclerotic disease (2), [Hypercholesterolemia] [Hypertension] [+ Family HX] [Obesity] Troponin: < or = 1 x Normal Limit (0). The patient was given aspirin in the Emergency Department. KASIE Risk Score: 1 - patient's age is greater or equal to 65 years, 1 - Three or more CAD risk factors, 1- Known CAD, 1 - ASA use in past 7 days, 1 - Recent [<24hrs] Severe Angina, TOTAL SCORE = 5. Immunization status: Pneumococcal vaccine: within last 5 years. Influenza vaccine: within last 5 years. Data reviewed: vital signs, nurses notes, lab test result(s), EKG, radiologic studies, plain films. Consideration of Admission/Observation Patient was admitted/placed on observation. Escalation of care including admission/observation considered. I considered the following discharge prescriptions or medication management in the emergency department Medications were administered in the Emergency Department. See MAR. Independent interpretation of the following test(s) in the Emergency Department EKG: See my EKG interpretation above. Test considered but Not performed: CT: ct chest. Historians other than the Patient: Family Member: sister well informed. pt well informed. Care significantly affected by the following chronic conditions: Hypertension, Congestive Heart Failure, Obesity, anxiety. Counseling: I had a detailed discussion with the patient and/or guardian regarding the historical points, exam findings, and any diagnostic results supporting the discharge/admit diagnosis, the presence of at least one elevated blood pressure reading (>120/80) during this emergency department visit, lab results, radiology results, the need for further work-up and treatment in the hospital. 18:28 Post IV fluid administration reassessment for Sepsis: Client not prescribed the 30 samantha mL/kg IVF due to: Heart: cancel secondary to cardiomegaly, chf hx. 02/23 16:24 Order name: Basic Metabolic Panel; Complete Time: 17:56 [facility] 02/23 16:24 Order name: CBC with Diff; Complete Time: 17:33 [facility] 02/23 16:24 Order name: LFT's; Complete Time: 17:56 [facility] 02/23 16:24 Order name: Magnesium; Complete Time: 17:56 [facility] 02/23 16:24 Order name: NT PRO-BNP; Complete Time: 17:56 [facility] 02/23 16:24 Order name: PT-INR; Complete Time: 18:15 [facility] 02/23 16:24 Order name: Troponin HS; Complete Time: 17:56 [facility] 02/23 16:24 Order name: Flu; Complete Time: 17:33 [facility] 02/23 16:24 Order name: Urinalysis w/ reflexes; Complete Time: 18:38 [facility] 02/23 16:24 Order name: UDS; Complete Time: 19:09 [facility] 02/23 16:24 Order name: SARS RAPID; Complete Time: 17:33 [facility] 02/23 16:24 Order name: Lipase; Complete Time: 17:56 [facility] 02/23 16:24 Order name: Blood Culture Adult (2) samantha 02/23 17:05 Order name: Lactate w/ 2H reflex if indic.; Complete Time: 17:45 bp 02/23 17:46 Order name: Ghost Lactate-NO COLLECT Timer EDMS 02/23 18:32 Order name: Basic Metabolic Panel EDMS 02/23 18:32 Order name: Basic Metabolic Panel EDNV 02/23 18:32 Order name: CBC with Automated Diff EDMS 02/23 18:32 Order name: CBC with Automated Diff EDMS 02/23 18:32 Order name: Lipid Profile EDMS 02/23 18:32 Order name: Lipid Profile EDMS 02/23 18:32 Order name: Troponin High Sensitivity EDMS 02/23 18:32 Order name: Troponin High Sensitivity EDMS 02/23 18:32 Order name: Troponin High Sensitivity EDMS 02/23 18:32 Order name: Troponin High Sensitivity EDNV 02/23 18:32 Order name: Troponin High Sensitivity EDNV 02/23 18:33 Order name: Urine Drug Screen EDMS 02/23 16:24 Order name: XRAY Chest (1 view); Complete Time: 17:56 samantha 02/23 18:32 Order name: Echo with Doppler EDNV 02/23 16:24 Order name: EKG; Complete Time: 16:25 samantha 02/23 16:24 Order name: Cardiac monitoring; Complete Time: 16:44 samantha 02/23 16:24 Order name: EKG - Nurse/Tech; Complete Time: 16:44 samantha 02/23 16:24 Order name: IV Saline Lock; Complete Time: 17:05 samantha 02/23 16:24 Order name: Labs collected and sent; Complete Time: 17:05 samantha 02/23 16:24 Order name: O2 Per Protocol; Complete Time: 16:44 samantha 02/23 16:24 Order name: O2 Sat Monitoring; Complete Time: 16:44 samantha EC:05 Rate is 85 beats/min. Rhythm is regular. QRS [place] is Normal. GA interval is normal. QRS samantha interval is normal. QT interval is normal. No Q waves. T waves are Normal. No ST changes noted. Clinical impression: Abnormal EKG without significant change and No evidence of ischemia. Interpreted by me. Reviewed by me. Administered Medications: 16:45 Drug: Aspirin PO Chewable Tablet 81 mg PO once Route: PO; bp 19:15 Follow up: Response: No adverse reaction kj2 17:05 Drug: NS 0.9% IV 500 ml 500 ml IV at 1 bolus once; to be given as a bolus over 30 bp minutes Volume: 500 ml; Route: IV; Rate: 1 bolus; Site: right forearm; 18:00 Drug: NS 0.9% IV (30 ml/kg) 30 ml/kg IV at bolus once; Sepsis Protocol; to be given as bp a bolus over 90 minutes Route: IV; Rate: bolus; Site: right forearm; 19:30 Follow up: IV Status: Completed infusion; IV Intake: 1000ml kj2 18:15 Drug: levofloxacin IVPB 500 mg 100 ml IVPB once over 60 mins Volume: 100 ml; Route: bp IVPB; Infused Over: 60 mins; Site: right forearm; 19:15 Follow up: IV Status: Completed infusion; IV Intake: 100ml kj2 18:15 Drug: LevOfloxacin PO 250 mg PO once Route: PO; bp 19:40 Follow up: Response: No adverse reaction kj2 18:30 Drug: Famotidine IVP 20 mg IVP once; dilute with 10 mL 0.9% NaCl; give over 2 minutes bp Route: IVP; Site: right forearm; 19:45 Follow up: Response: No adverse reaction kj2 18:30 Drug: Ativan IVP 1 mg IVP once Route: IVP; Site: right forearm; bp 19:15 Follow up: Response: No adverse reaction kj2 18:30 Drug: Clopidogrel PO 75 mg PO once Route: PO; bp 19:45 Follow up: Response: No adverse reaction kj2 18:30 Drug: Enoxaparin Sub-Q 90 mg Sub-Q once Route: Sub-Q; Site: right lower abdomen; bp 19:15 Follow up: Response: No adverse reaction kj2 18:30 Drug: Losartan PO 50 mg PO once Route: PO; bp 19:15 Follow up: Response: No adverse reaction kj2 Disposition Summary: 02/24/24 18:12 Hospitalization Ordered Notes: Hospitalization Status: Inpatient Admission samantha Provider: Prince samantha Encarnacion Location: Telemetry/MedSurg (observation) samantha Condition: Fair samantha Problem: new samantha Symptoms: have improved samantha Bed/Room Type: Standard samantha Room Assignment: 211(02/24/24 18:44) rv1 Diagnosis - Dyspnea samantha - Chest pain, unspecified samantha - Anxiety disorder, unspecified samantha - Cocaine abuse samantha - Cocaine abuse with cocaine-induced anxiety disorder samantha Forms: - Medication Reconciliation Form samantha - SBAR form samantha - Leadership Thank You Letter samantha Signatures: Dispatcher [employer] EDGilmar Dunn MD MD cha Peltier, Brian, RN RN Sari Adners rv1 Charly Silva RN RN tm6 Kizzy Brown RN kj2 Corrections: (The following items were deleted from the chart) 16:25 16:25 BASIC METABOLIC PANEL+C.LAB.BRZ ordered. EDMS EDMS 16:25 16:25 CBC+H.LAB.BRZ ordered. EDMS EDMS 16:25 16:25 HEPATIC FUNCTION+C.LAB.BRZ ordered. EDMS EDMS 16:25 16:25 MAGNESIUM+C.LAB.BRZ ordered. EDMS EDMS 16:25 16:25 PROBNP+C.LAB.BRZ ordered. EDMS EDMS 16:25 16:25 PROTIME (+INR)+COAG.LAB.BRZ ordered. EDMS EDMS 16:25 16:25 Troponin High Sensitivity+C.LAB.BRZ ordered. EDMS EDMS 16:25 16:25 Influenza Screen (A \T\ B)+BA.LAB.BRZ ordered. EDMS EDMS 16:25 16:25 Urinalysis+U.LAB.BRZ ordered. EDMS EDMS 16:25 16:25 URINE DRUG SCREEN+UC.LAB.BRZ ordered. EDMS EDMS 16:25 16:25 SARS-COV-2 Antigen Rapid+I.LAB.BRZ ordered. EDMS EDMS 16:25 16:25 LIPASE+C.LAB.BRZ ordered. EDMS EDMS 16:25 16:25 BLOOD CULTURE*+BA.LAB.BRZ ordered. EDMS EDMS 18:44 18:12 samantha rv1
[2024-02-24] MEDS ORDERED: LORazepam 2 MG/ML VIAL ONE (18:17)
[2024-02-24] MEDS ORDERED: ENOXAPARIN 100 MG/ML SYR SQ ONE (18:17)
[2024-02-24] MEDS ORDERED: levoFLOXacin 250 MG TAB ONE (18:17)
[2024-02-24] MEDS ORDERED: CLOPIDOGREL 75 MG TABLET ONE (18:17)
[2024-02-24] MEDS ORDERED: FAMOTIDINE 20 MG/2 ML VIAL IV ONE (18:18)
[2024-02-24] MEDS ORDERED: NA CHLORIDE 0.9% 2,000 ML ONE (18:18)
[2024-02-24] MEDS ORDERED: Levofloxacin500mg IV 500 MG/100 ML BAG IV ONE (18:18)
[2024-02-24] MEDS ORDERED: LOSARTAN POTASSIUM 50 MG TABLET ONE (18:18)
[2024-02-24 18:26] LABS: Specific Gravity 1.016 (1.005-1.030); Sqamous Epithelial None Seen /HPF (None Seen); Urine Bacteria None Seen /HPF (<20); Urine Bilirubin NEGATIVE (Negative); Urine Blood Negative (Negative); Urine Clarity Clear (Clear); Urine Color Light-Yellow (Yellow); Urine Culture Reflex Order NOT NEEDED; Urine Glucose NEGATIVE (Negative); Urine Ketones NEGATIVE (Negative); Urine Microscopic Reflex YN ORDER UMIC; Urine Mucus Slight /HPF (None Seen); Urine Nitrite NEGATIVE (Negative); Urine Protein NEGATIVE (Negative); Urine RBC <5 /HPF (None Seen); Urine Urobilinogen Normal (Normal); Urine WBC <5 /HPF (<5); Urine Yeast (Budding) Trace /HPF (None Seen); Urine pH 5.5 (5.0-7.0)
[2024-02-24] MEDS ORDERED: NITROGLYCERIN 0.4 MG/TAB SL PRN (18:27)
[2024-02-24 18:39] LABS: Barbiturates NEGATIVE (NEGATIVE); Benzodiazepines POSITIVE (NEGATIVE); Cocaine POSITIVE (NEGATIVE); METHAMPHETAM NEGATIVE (NEGATIVE); Methadone NEGATIVE (NEGATIVE); Opiates NEGATIVE (NEGATIVE); Phencyclidine NEGATIVE (NEGATIVE); THC Cannibis NEGATIVE (NEGATIVE)
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
[2024-02-24] MEDS: FUROSEMIDE 40 MG/4 ML VIAL IV ONE (19:01)
[2024-02-24 20:09] VITALS: O2SAT 97
[2024-02-24 20:14] VITALS: TEMP 97.3
[2024-02-24 21:05] VITALS: BP 119/69; BMI 29.1
[2024-02-24] MEDS ORDERED: ZOLPIDEM TARTRATE 5 MG TABLET PO ONE (23:40)
[2024-02-24 23:58] LABS: Troponin High Sensitivity 7.4 pg/mL (<58.9)
[2024-02-25] MEDS ORDERED: ASPIRIN EC 81 MG TAB PO SCH (09:00)
[2024-02-25] MEDS ORDERED: ENOXAPARIN 40 MG/0.4 ML SQ SCH (09:00)
--- NOTE | 2024-02-25 11:08 | EKG ---
Test Date: 2024-02-24 Test Time: 16:40:38 Sharepoint Administrator: BP MEASUREMENT RESULTS: Intervals: Rate: 85 RI: 168 QRSD: 88 QT: 364 QTc: 433 [place]: P: 51 RI: 168 QRS: 70 T: 61 INTERPRETIVE STATEMENTS: Normal sinus rhythm Inferior infarct, age undetermined Abnormal ECG Compared to ECG 10/23/2023 22:21:42 Sinus bradycardia no longer present Myocardial infarct finding still present Electronically Signed On 02-25-24 11:06:57 CAR SHAGGER by Josse David
== END 2024-02-24 23:50 | disposition left against medical advice (07) ==
LOC: ER 16:19 → ERHOLD 18:27 → 2ND 18:57
PROVIDERS: ADMIT Internal Medicine; ATTEND Internal Medicine
DX: R07.9 Chest pain, unspecified (principal); R06.00 Dyspnea, unspecified; I10 Essential (primary) hypertension; E78.5 Hyperlipidemia, unspecified; I25.10 Atherosclerotic heart disease of native coronary artery without angina pectoris; F41.9 Anxiety disorder, unspecified; F43.10 Post-traumatic stress disorder, unspecified; I25.2 Old myocardial infarction; F14.10 Cocaine abuse, uncomplicated; F14.180 Cocaine abuse with cocaine-induced anxiety disorder; Z95.1 Presence of aortocoronary bypass graft; Z88.0 Allergy status to penicillin; Z91.048 Other nonmedicinal substance allergy status; Z79.82 Long term (current) use of aspirin; Z11.52 Encounter for screening for COVID-19; Z86.73 Personal history of transient ischemic attack (TIA), and cerebral infarction without residual deficits; Z98.890 Other specified postprocedural states
CPT/HCPCS: 96365; 93005; 87040 ×2; 85025; 81001; 80048; 36415; 83735; 85610; 80061; 80076; 83605; 84484 ×2; 83690; 84145; 83880; 80307; 87804 ×2; 71045; 96375; 96372; 99285; 87811; J1650; J7040; J7030; G0378 ×2

== ENCOUNTER 2024-06-01 11:33 | Emergency (ER) | payer OTHER ==
--- NOTE | 2024-06-02 12:02 | EDPHYS ---
Physician Documentation [facility] Name: Fred Hardy Age: 68 yrs Sex: Male : 1955 Arrival Date: 06/01/2024 Time: 11:33 Bed 14 Private MD: ED Physician Administered Medications: No medications were administered Disposition Summary: 06/01/24 12:01 Eloped Notes: Disposition: Before Triage kb3 Reason: feeling better kb3 Signatures: Ulisses Hinton MD MD rn Bradberry, Kelly, RN RN kb3 Corrections: (The following items were deleted from the chart) 06/01 12:03 11:47 Medical Screening Exam initiated rn iram
== END 2024-06-01 12:01 | disposition left against medical advice (07) ==
LOC: ER 11:33
DX: Z02.9 Encounter for administrative examinations, unspecified (principal)

== ENCOUNTER 2024-06-23 01:45 | Emergency (ER) | payer OTHER ==
[2024-06-23] MEDS ORDERED: ONDANSETRON 4 MG/2 ML VIAL ONE (02:33)
[2024-06-23] MEDS ORDERED: LORazepam 2 MG/ML VIAL ONE (02:33)
[2024-06-23] MEDS ORDERED: NITROGLYCERIN 1 GM PKT TD ONE (02:34)
[2024-06-23] MEDS ORDERED: MORPHINE 4 MG/ML SYR ONE (02:35)
[2024-06-23 02:43] LABS: PT Prothrombin Time 10.9 SECONDS (10-13.0); Protime INR 0.95
[2024-06-23 02:44] LABS: Absolute Basophils 0.1 K/uL (0-0.5); Absolute Eosinophils 0.1 K/uL (0-0.5); Absolute Lymphocytes (CBC) 1.2 K/uL (0.7-4.9); Absolute Monocytes 0.4 K/uL (0.1-1.3); Absolute Neutrophil 4.2 K/uL (1.8-8.0); Basophils % 1.1 % (0-1.3); Eosinophils % 2.4 % (0-4.4); Hematocrit 42.4 % (39.6-49.0); Hemoglobin 14.3 g/dL (13.6-17.9); Lymphocytes % 19.3 % (15.3-44.8); MCH 30.7 pg (27.0-35.0); MCHC 33.9 g/dL (32.0-36.0); MCV 90.5 fL (80-100); MPV 8.8 fL (7.6-11.3); Monocytes % 7.4 % (3.3-12.3); Neutrophils % 69.8 % (41.7-73.7); Platelets 205 thou/uL (152-406); RBC Red Blood Cell Count 4.68 M/uL (4.33-5.43); Red Cell Distribution Width 14.6 % (12.1-15.2)
[2024-06-23 03:09] LABS: ALT/SGPT 17 U/L (16-61); AST/SGOT 12 U/L (15-37); Albumin 2.8 g/dL (3.4-5.0); Albumin/Globulin Ratio 0.8 (1.1-1.8); Alkaline Phosphatase 91 U/L (45-117); Anion Gap 7.6 mEq/L (5.0-15.0); BUN Blood Urea Nitrogen 21 mg/dL (7-18); Bicarbonate 27 mEq/L (21-32); Bilirubin Total 0.2 mg/dL (0.2-1.0); Globulin 3.4 g/dL (2.3-3.5); Glomerular Filtration Rate 62 ml/min (=/>90); Glucose Level 140 mg/dL (74-106); Magnesium 1.9 mg/dL (1.6-2.4); NT PRO-BNP 223 pg/mL (<125); Potassium 3.6 mEq/L (3.5-5.1); Protein, Total 6.2 g/dL (6.4-8.2); Sodium Level 140 mEq/L (136-145); Troponin High Sensitivity 11.9 pg/mL (<58.9)
[2024-06-23 03:39] LABS: Bilirubin Direct < 0.2 mg/dL (0-0.2)
--- NOTE | 2024-06-23 05:30 | ER ---
Nurse's Notes [facility] Name: Fred Hardy Age: 68 yrs Sex: Male : 1955 Arrival Date: 06/23/2024 Time: 01:45 Bed 7 Private MD: Diagnosis: Chest pain, unspecified;Acute cocaine induced chest pain Presentation: 06/23 02:03 Chief complaint: Patient states: c/o chest tightness and upper abdominal pain radiating al5 to the back since [id number] yesterday. took tramadol at 2100 and 2300 but did not help. took 2 tylenol prior to ems arrival. admits to cocaine use about 2 nights ago. Coronavirus screen: At this time, the client does not indicate any symptoms associated with coronavirus-19. Ebola Screen: No symptoms or risks identified at this time. Initial Sepsis Screen: Does the patient meet any 2 criteria? No. Patient's initial sepsis screen is negative. Does the patient have a suspected source of infection? No. Patient's initial sepsis screen is negative. Risk Assessment: Do you want to hurt yourself or someone else? Patient reports no desire to harm self or others. Onset of symptoms was June 22, 2024. 02:03 Method Of Arrival: EMS: [facility] al5 02:03 Acuity: JOSÉ MIGUEL 2 al5 02:03 Care prior to arrival: Medication(s) given: ASA, 81 mg, x 4, IV initiated. 20 GA, in al5 the left forearm, Glucose check: 120. Triage Assessment: 02:05 General: Appears in no apparent distress. comfortable, Behavior is calm, cooperative. al5 Pain: Complains of pain in chest, right upper quadrant and left upper quadrant Pain radiates to back. EENT: No signs and/or symptoms were reported regarding the EENT system. Neuro: Level of Consciousness is awake, alert, obeys commands, Oriented to person, place, time, situation. Cardiovascular: Capillary refill < 3 seconds Patient's skin is warm and dry. Respiratory: Airway is patent Respiratory effort is even, unlabored, Respiratory pattern is regular, symmetrical. GI: Abdomen is round non-distended, Reports upper abdominal pain. : No signs and/or symptoms were reported regarding the genitourinary system. Derm: Skin is intact, is healthy with good turgor, Skin is pink, warm \T\ dry. normal. Musculoskeletal: No signs and/or symptoms reported regarding the musculoskeletal system. Historical: - Allergies: 02:05 IV contrast; al5 02:05 PENICILLINS; al5 - PMHx: 02:05 Anxiety; coronary atherosclerosis; Hyperlipidemia; Hypertension; Myocardial infarction; al5 Transient cerebral ischemia; PTSD (umbilical hernia repair); - PSHx: 02:05 Coronary Angioplasty; Coronary artery bypass graft; heart stent; umbilical hernia al5 repair; - Immunization history:: Adult Immunizations up to date. - Infectious Disease History:: Denies. - Social history:: Smoking status: Patient/guardian denies using tobacco, but has a distant history of tobacco abuse. - Family history:: not pertinent. Screenin:14 [facility] ED Fall Risk Assessment (Adult) History of falling in the last 3 months, al5 including since admission No falls in past 3 months (0 pts) Confusion or Disorientation No (0 pts) Intoxicated or Sedated No (0 pts) Impaired Gait No (0 pts) Mobility Assist Device Used No (0 pt) Altered Elimination No (0 pt) Score/Fall Risk Level 0 - 2 = Low Risk Oriented to surroundings, Maintained a safe environment, Hourly rounding (assess needs \T\ fall precautionary measures) done. Abuse screen: Denies threats or abuse. Denies injuries from another. Nutritional screening: No deficits noted. Tuberculosis screening: No symptoms or risk factors identified. Assessment: 02:13 Reassessment: see triage assessment. Pain: Pain began 1 day ago. al5 03:30 Reassessment: Patient appears in no apparent distress at this time. Patient and/or al5 family updated on plan of care and expected duration. Pain level reassessed. Patient is alert, oriented x 3, equal unlabored respirations, skin warm/dry/pink. Patient states feeling better. 04:20 Reassessment: Patient appears in no apparent distress at this time. Patient and/or al5 family updated on plan of care and expected duration. Pain level reassessed. Patient is alert, oriented x 3, equal unlabored respirations, skin warm/dry/pink. Patient states symptoms have improved. 05:38 Reassessment: Patient appears in no apparent distress at this time. No changes from al5 previously documented assessment. Patient and/or family updated on plan of care and expected duration. Pain level reassessed. Patient is alert, oriented x 3, equal unlabored respirations, skin warm/dry/pink. Vital Signs: 02:03 BP 161 / 89; Pulse 63; Resp 16; Temp 97.6; Pulse Ox 96% on R/A; Weight 92.53 kg; Height al5 5 ft. 11 in. ; Pain 8/10; 02:30 BP 153 / 93; Pulse 64; Resp 19; Pulse Ox 95% on R/A; al5 03:00 BP 134 / 92; Pulse 59; Resp 16; Pulse Ox 95% on R/A; al5 03:30 BP 128 / 91; Pulse 56; Resp 17; Pulse Ox 96% on R/A; al5 04:00 BP 119 / 83; Pulse 53; Resp 17; Pulse Ox 96% on R/A; al5 04:32 BP 108 / 74; Pulse 54; Resp 17; Pulse Ox 97% on R/A; al5 05:13 BP 103 / 78; Pulse 54; Resp 17; Pulse Ox 98% on R/A; kd3 02:03 Body Mass Index 28.45 (92.53 kg, 180.34 cm) al5 02:03 Pain Scale: Adult al5 [place] Coma Score: 06/24 02:30 Eye Response: spontaneous(4). Motor Response: obeys commands(6). Verbal Response: sp4 oriented(5). Total: 15. ED Course: 06/23 01:57 Patient arrived in ED. [email or web address] 01:59 Yousif Pozo MD is Attending Physician. sp4 02:05 Triage completed. al5 02:05 Arm band placed on right wrist. Patient placed in the treatment room, in view of staff al5 members, on monitor car operator, on pulse oximetry. 02:13 Shandra Landrum RN is Primary Nurse. al5 02:15 Patient has correct armband on for positive identification. Bed in low position. Call al5 light in reach. Side rails up X2. Provided Education on: plan of care. Client placed on continuous cardiac and pulse oximetry monitoring. NIBP monitoring applied. teletypesetter monitor on. 02:15 No provider procedures requiring assistance completed. Maintain EMS IV. Dressing al5 intact. Good blood return noted. Site clean \T\ dry. Gauge \T\ site: 20G LFA. Flushed with 10 mL NS. Patient maintains SpO2 saturation greater than 95% on room air. 02:21 EKG done, by ED staff, reviewed by Yousif Pozo MD. oe 02:22 Basic Metabolic Panel Sent. kd3 02:22 CBC with Diff Sent. kd3 02:22 LFT's Sent. kd3 02:22 Magnesium Sent. kd3 02:22 NT PRO-BNP Sent. kd3 02:22 PT-INR Sent. kd3 02:22 Troponin HS Sent. kd3 03:03 XRAY Chest (1 view) In Process Unspecified. EDMS 04:37 Troponin High Sensitivity Sent. oe 05:38 IV discontinued, intact, bleeding controlled, No redness/swelling at site. Pressure al5 dressing applied. Administered Medications: 02:17 Not Given (given by jesse): aspirinchewable tablet 324 mg PO once; 81 mg tablets x 4 al5 02:42 Drug: Ativan IVP 1 mg IVP once Route: IVP; Site: right forearm; al5 04:32 Follow up: Response: No adverse reaction; Anxiety decreased al5 02:42 Drug: morphine IVP or IV 4 mg IVP once over 4 mins Route: IVP; Infused Over: 4 mins; al5 Site: right forearm; 04:32 Follow up: Response: No adverse reaction; Pain is decreased al5 02:42 Drug: Ondansetron IVP 4 mg IVP once; over 2 minutes Route: IVP; Site: right forearm; al5 04:32 Follow up: Response: No adverse reaction al5 04:29 Not Given (Hemodynamic Parameters): nitroglycerinointment 2 % 0.5 inches Transdermal al5 once Medication: 02:14 VIS not applicable for this client. al5 Outcome: 05:30 Discharge ordered by . sp4 05:38 Discharged to home ambulatory, al5 05:38 Condition: good 05:38 Discharge instructions given to patient, Instructed on discharge instructions, follow up and referral plans. Demonstrated understanding of instructions, follow-up care, 05:38 Patient left the ED. al5 Signatures: Dispatcher [employer] EDMS Lemuel Ybarra oe Rosemarie [email or web address] Nereida Martinez, RN RN kd3 Yousif Pozo MD MD sp4 Langhorst, Shandra, RN RN al5
--- NOTE | 2024-06-23 05:30 | EDPHYS ---
Physician Documentation [facility] Name: Fred Hardy Age: 68 yrs Sex: Male : 1955 Arrival Date: 06/23/2024 Time: 01:45 Bed 7 Private MD: ED Physician Yousif Pozo HPI: 06/23 01:59 This 68 yrs old Other Race Male presents to ER via Unassigned with complaints of Chest sp4 Pain. 06/24 02:30 68-year-old male presents with complaint of acute onset chest pain. History of CAD,. sp4 Historical: - Allergies: 06/23 02:05 IV contrast; al5 02:05 PENICILLINS; al5 - PMHx: 02:05 Anxiety; coronary atherosclerosis; Hyperlipidemia; Hypertension; Myocardial infarction; al5 Transient cerebral ischemia; PTSD (umbilical hernia repair); - PSHx: 02:05 Coronary Angioplasty; Coronary artery bypass graft; heart stent; umbilical hernia al5 repair; - Immunization history:: Adult Immunizations up to date. - Infectious Disease History:: Denies. - Social history:: Smoking status: Patient/guardian denies using tobacco, but has a distant history of tobacco abuse. - Family history:: not pertinent. ROS: 06/24 02:30 Constitutional: Negative for fever, chills, and weight loss, positive for chest pain sp4 All other systems are negative, Exam: 02:30 Constitutional: This is a well developed, well nourished patient who is awake, alert, sp4 and in no acute distress. Head/Face: Normocephalic, atraumatic. Eyes: Pupils equal round and reactive to light, extra-ocular motions intact. Lids and lashes normal. Conjunctiva and sclera are not injected. Cornea within normal limits. Periorbital areas with no swelling, redness, or edema. ENT: Nares patent. No nasal discharge, no septal abnormalities noted. Tympanic membranes are normal and external auditory canals are clear. Oropharynx with no redness, swelling, or masses, exudates, or evidence of obstruction, uvula midline. Mucous membranes moist. Neck: Trachea midline, no thyromegaly or masses palpated, and no cervical lymphadenopathy. Supple, full range of motion without nuchal rigidity, or vertebral point tenderness. Chest/axilla: Normal chest wall appearance and motion. Nontender with no deformity. No lesions are appreciated. Cardiovascular: Regular rate and rhythm with a normal S1 and S2. No gallops, murmurs, or rubs. Normal PMI, no JVD. No pulse deficits. Respiratory: Lungs have equal breath sounds bilaterally, clear to auscultation and percussion. No rales, rhonchi or wheezes noted. No increased work of breathing, no retractions or nasal flaring. Abdomen/GI: Soft, with normal bowel sounds. No distension or tympany. No guarding or rebound. No evidence of tenderness throughout. Back: No spinal tenderness. No costovertebral tenderness. Skin: Warm, dry with normal turgor. Normal color with no rashes, no lesions, and no evidence of cellulitis. MS/ Extremity: Pulses equal, no cyanosis. Neurovascular intact. Full, normal range of motion. Neuro: Awake and alert, GCS 15, oriented to person, place, time, and situation. Cranial nerves II-XII grossly intact. Motor strength 5/5 in all extremities. Sensory grossly intact. Psych: Awake, alert, with orientation to person, place and time. Behavior, mood, and affect are within normal limits Vital Signs: 06/23 02:03 BP 161 / 89; Pulse 63; Resp 16; Temp 97.6; Pulse Ox 96% on R/A; Weight 92.53 kg; Height al5 5 ft. 11 in. ; Pain 8/10; 02:30 BP 153 / 93; Pulse 64; Resp 19; Pulse Ox 95% on R/A; al5 03:00 BP 134 / 92; Pulse 59; Resp 16; Pulse Ox 95% on R/A; al5 03:30 BP 128 / 91; Pulse 56; Resp 17; Pulse Ox 96% on R/A; al5 04:00 BP 119 / 83; Pulse 53; Resp 17; Pulse Ox 96% on R/A; al5 04:32 BP 108 / 74; Pulse 54; Resp 17; Pulse Ox 97% on R/A; al5 05:13 BP 103 / 78; Pulse 54; Resp 17; Pulse Ox 98% on R/A; kd3 02:03 Body Mass Index 28.45 (92.53 kg, 180.34 cm) al5 02:03 Pain Scale: Adult al5 [place] Coma Score: 06/24 02:30 Eye Response: spontaneous(4). Motor Response: obeys commands(6). Verbal Response: sp4 oriented(5). Total: 15. MDM: 06/23 04:26 Medical Screening Exam initiated sp4 06/24 02:30 Differential diagnosis: acute pericarditis, anxiety, coronary artery disease chest wall sp4 pain, congestive heart failure. Data reviewed: vital signs, nurses notes. 02:32 HEART Score: History: Slightly Suspicious (0), ECG: Non specific repolarization sp4 disturbance / LBTB / PM (1), Age: > or = 65 years (2), Risk Factors: > or = 3 Risk factors for atherosclerotic disease (2), Troponin: < or = 1 x Normal Limit (0), Total Score = 5. ED course: Chest pain likely cocaine induced, second troponin negative, patient stable for discharge home. Advised to discontinue cocaine use. 06/23 02:16 Order name: Basic Metabolic Panel; Complete Time: 05:16 sp4 06/23 02:16 Order name: CBC with Diff; Complete Time: 05:16 sp4 06/23 02:16 Order name: LFT's; Complete Time: 05:16 sp4 06/23 02:16 Order name: Magnesium; Complete Time: 05:16 sp4 06/23 02:16 Order name: NT PRO-BNP; Complete Time: 05:16 sp4 06/23 02:16 Order name: PT-INR; Complete Time: 05:16 sp4 06/23 02:16 Order name: Troponin HS; Complete Time: 05:16 sp4 06/23 04:31 Order name: Troponin High Sensitivity; Complete Time: 05:16 al5 06/23 02:16 Order name: XRAY Chest (1 view); Complete Time: 02:32 sp4 06/23 02:06 Order name: EKG; Complete Time: 02:06 sp4 06/23 02:06 Order name: EKG - Nurse/Tech; Complete Time: 02:54 sp4 06/23 02:16 Order name: Cardiac monitoring; Complete Time: 02:51 sp4 06/23 02:16 Order name: EKG - Nurse/Tech; Complete Time: 02:17 sp4 06/23 02:16 Order name: IV Saline Lock; Complete Time: 02:17 sp4 06/23 02:16 Order name: Labs collected and sent; Complete Time: 02:17 sp4 06/23 02:16 Order name: O2 Per Protocol; Complete Time: 02:17 sp4 06/23 02:16 Order name: O2 Sat Monitoring; Complete Time: 02: sp4 Administered Medications: 06/23 02:17 Not Given (given by jesse): aspirinchewable tablet 324 mg PO once; 81 mg tablets x 4 al5 02:42 Drug: Ativan IVP 1 mg IVP once Route: IVP; Site: right forearm; al5 04:32 Follow up: Response: No adverse reaction; Anxiety decreased al5 02:42 Drug: morphine IVP or IV 4 mg IVP once over 4 mins Route: IVP; Infused Over: 4 mins; al5 Site: right forearm; 04:32 Follow up: Response: No adverse reaction; Pain is decreased al5 02:42 Drug: Ondansetron IVP 4 mg IVP once; over 2 minutes Route: IVP; Site: right forearm; al5 04:32 Follow up: Response: No adverse reaction al5 04:29 Not Given (Hemodynamic Parameters): nitroglycerinointment 2 % 0.5 inches Transdermal al5 once Disposition Summary: 06/23/24 05:30 Discharge Ordered Notes: Location: Home sp4 Problem: new sp4 Symptoms: have improved sp4 Condition: Stable sp4 Diagnosis - Chest pain, unspecified sp4 - Acute cocaine induced chest pain sp4 Followup: sp4 - With: Private Physician - When: 7 - 10 days - Reason: Recheck today's complaints Discharge Instructions: - Discharge Summary Sheet sp4 - Cocaine Use Disorder sp4 Forms: - Patient Portal Instructions sp4 Addendum: 06/24/2024 21:43 Addendum: Initial EKG 06/23/2024 at 0202 normal sinus rhythm rate 62, no ST elevation s p4 or depression, no ectopy, normal axis, normal intervals. Overall normal EKG. Repeat EKG 06/23/2024 at 0 5:23 AM sinus bradycardia rate 53, no ST elevation or depression, no ectopy, normal axis, normal intervals, otherwise normal EKG.. Signatures: Dispatcher [employer] Yousif Crabtree MD MD sp4 Shandra Landrum RN RN al5 Corrections: (The following items were deleted from the chart) 06/23 02:16 02:16 BASIC METABOLIC PANEL+C.LAB.BRZ ordered. EDMS EDMS 02:16 02:16 CBC+H.LAB.BRZ ordered. EDMS EDMS 02:16 02:16 HEPATIC FUNCTION+C.LAB.BRZ ordered. EDMS EDMS 02:16 02:16 MAGNESIUM+C.LAB.BRZ ordered. EDMS EDMS 02:16 02:16 PROBNP+C.LAB.BRZ ordered. EDMS EDMS 02:16 02:16 PROTIME (+INR)+COAG.LAB.BRZ ordered. EDMS EDMS 02:16 02:16 Troponin High Sensitivity+C.LAB.BRZ ordered. EDMS EDMS 02:16 02:16 Chest Single View+RAD.RAD.BRZ ordered. EDMS EDMS
--- NOTE | 2024-06-23 05:57 | RAD REPORT ---
EXAM: XR Chest, 1 View CLINICAL HISTORY: The patient is 68 years old and is Male; CHEST PAIN TECHNIQUE: Frontal view of the chest. COMPARISON: No relevant prior studies available. FINDINGS: Lungs: Mildly prominent interstitial markings. Patchy opacity in the left lung base. Pleural space: Blunting of the right costophrenic angle which may indicate a right pleural effusi on. No pneumothorax. Heart: Unremarkable. Mediastinum: Unremarkable. Normal mediastinal contour. Bones/joints: No acute findings. IMPRESSION: 1. Mildly prominent interstitial markings. Patchy opacity in the left lung base. 2. Blunting of the right costophrenic angle which may indicate a right pleural effusion. Electronically signed by: Suleman Kaur MD 06/23/2024 04:29 AM CDT 8 Due to temporary technical issues with the [employer] reporting system, reports are being carlos d by the in-house radiologist without review as a courtesy to ensure prompt reporting the interpreting radiologist is fully responsible for the content of the report. Transcribed Date/Time: 06/23/2024 5:57 AM
[2024-06-23 06:07] VITALS: TEMP 97.6
[2024-06-23 06:14] VITALS: BP 103/78; O2SAT 98
--- NOTE | 2024-06-25 12:44 | EKG ---
Test Date: 2024-06-23 Test Time: 05:23:50 Mri Specialist: ALLIE MEASUREMENT RESULTS: Intervals: Rate: 53 UT: 178 QRSD: 88 QT: 430 QTc: 403 Colp: P: -28 UT: 178 QRS: 26 T: 69 INTERPRETIVE STATEMENTS: Sinus bradycardia Inferior infarct, age undetermined Abnormal ECG Compared to ECG 06/23/2024 02:02:54 Sinus rhythm no longer present Myocardial infarct finding still present Electronically Signed On 06-25-24 12:38:16 CDT by Josse David
--- NOTE | 2024-06-25 12:45 | EKG ---
Test Date: 2024-06-23 Test Time: 02:02:54 [employer] Scientist: ALLIE MEASUREMENT RESULTS: Intervals: Rate: 62 GA: 186 QRSD: 88 QT: 410 QTc: 416 [place]: P: 24 GA: 186 QRS: 38 T: 63 INTERPRETIVE STATEMENTS: Normal sinus rhythm Inferior infarct, age undetermined Abnormal ECG Compared to ECG 02/24/2024 16:40:38 No significant changes Electronically Signed On 06-25-24 12:39:56 CDT by Josse David
== END 2024-06-23 05:38 | disposition home or self-care (01) ==
LOC: ER 01:45
DX: F14.188 Cocaine abuse with other cocaine-induced disorder (principal); I10 Essential (primary) hypertension; Z95.1 Presence of aortocoronary bypass graft
CPT/HCPCS: 93005 ×2; 85025; 80048; 36415; 83735; 85610; 80076; 84484 ×2; 83880; 71045; 96375; 96374; 99285; J2405

== ENCOUNTER 2024-12-30 15:10 | Emergency (ER) | payer OTHER ==
[2024-12-30] MEDS ORDERED: LORazepam 2 MG/ML VIAL ONE (15:35)
[2024-12-30 16:06] LABS: Absolute Lymphocytes (CBC) 1.1 K/uL (0.7-4.9); Hematocrit 42.9 % (39.6-49.0); Hemoglobin 14.4 g/dL (13.6-17.9); MCH 31.4 pg (27.0-35.0); MCHC 33.6 g/dL (32.0-36.0); MCV 93.4 fL (80-100); MPV 9.0 fL (7.6-11.3); Nucleated RBC Absolute Count 0.0 (0-0); Nucleated Red Blood Cells % 0.1 % (0-0); RBC Red Blood Cell Count 4.59 M/uL (4.33-5.43); White Blood Count 5.40 thou/uL (4.3-10.9)
[2024-12-30] MEDS ORDERED: ASPIRIN 81 MG CHEWABLE TABLET ONE (16:06)
[2024-12-30 16:11] LABS: PT Prothrombin Time 11.0 SECONDS (10-13.0); Protime INR 0.97
--- NOTE | 2024-12-30 16:18 | RAD REPORT ---
EXAM: Chest Single View HISTORY: 69 years Male CHEST PAIN COMPARISON: 08/21/2024 FINDINGS: LUNGS/PLEURA: Similar diffuse prominence of the pulmonary interstitium. No new acute process identifi ed. CARDIAC/MEDIASTINUM: Mild cardiomegaly UPPER ABDOMEN: No significant abnormality. BONES: No acute abnormality. LINES/TUBES/OTHER: N/A IMPRESSION: Similar interstitial prominence may reflect chronic changes. Edema and/or atypical pneumonia less lik marj but within the differential.
[2024-12-30 16:23] LABS: ALT/SGPT 23 U/L (16-61); AST/SGOT 15 U/L (15-37); Albumin 2.9 g/dL (3.4-5.0); Albumin/Globulin Ratio 0.8 (1.1-1.8); Alkaline Phosphatase 79 U/L (45-117); Anion Gap 8.9 mEq/L (5.0-15.0); BUN Blood Urea Nitrogen 15 mg/dL (7-18); Globulin 3.7 g/dL (2.3-3.5); Glucose Level 108 mg/dL (74-106); Magnesium 1.9 mg/dL (1.6-2.4); NT PRO-BNP 130 pg/mL (<125); Potassium 3.9 mEq/L (3.5-5.1); Troponin High Sensitivity 7.0 pg/mL (<58.9)
[2024-12-30 16:24] LABS: Bilirubin Indirect, Calculated 0.0 mg/dL (0.2-0.8)
--- NOTE | 2024-12-30 16:54 | RAD REPORT ---
EXAMINATION: Thorax Wo Con CLINICAL INDICATION: Male, 69 years old. CHEST PAIN TECHNIQUE: Routine CT scan of the chest without intravenous contrast. One or more of the following do se reduction techniques were used: Automated exposure control, adjustment of the mA and/or kV according to patient size, and/or iterative reconstruction. Unless otherwise specified, incidental fi ndings do not require dedicated imaging follow-up. [id number]. COMPARISON: 08/31/2022 FINDINGS: LOWER NECK: Visualized thyroid gland and soft tissues are normal. MEDIASTINUM AND LYMPH NODES: No mediastinal mass or fluid collection. Normal size mediastinal, hilar, and axillary lymph nodes. Mild distal esophageal thickening. THORACIC AORTA: No thoracic aortic aneurysm. Atherosclerotic changes are present. PULMONARY ARTERIES: Caliber is within normal limits. Unable to assess for pulmonary emboli without IV contrast. HEART: Mild cardiomegaly. Severe coronary artery calcifications.No significant pericardial effusion. LUNGS AND AIRWAYS: Scarring present in the right middle lobe and lingula. No consolidative airspace d isease. Mild subpleural reticulation. Mild intralobular. No suspicious and/or stable pulmonary nodules. PLEURA: Trace chronic pleural effusions. No pneumothorax. OSSEOUS STRUCTURES AND CHEST WALL: No fracture or suspicious osseous lesions. UPPER ABDOMEN: No acute abnormalities. IMPRESSION: Intralobular septal thickening likely reflecting mild interstitial edema superimposed upon a backgrou nd of early chronic interstitial lung changes. No evidence of pneumonia.
--- NOTE | 2024-12-30 19:09 | ER ---
Nurse's Notes [facility] Name: Fred Hardy Age: 69 yrs Sex: Male : 1955 Arrival Date: 12/30/2024 Time: 15:10 Bed 24 Private MD: Diagnosis: Chest pain, unspecified Presentation: 12/30 15:15 Chief complaint: EMS states: patient has on \T\ of body pain that is getting worst \T\ rg 5 today his chest is hurting bad. he is anxious and having shortness of breath. 15:15 Coronavirus screen: Client denies travel out of the [place] in the last 14 days. Ebola rg5 Screen: Patient negative for fever greater than or equal to 101.5 degrees Fahrenheit, and additional compatible Ebola Virus Disease symptoms Patient denies exposure to infectious person. Patient denies travel to an Ebola-affected area in the 21 days before illness onset. Initial Sepsis Screen: Does the patient meet any 2 criteria? No. Patient's initial sepsis screen is negative. Does the patient have a suspected source of infection? No. Patient's initial sepsis screen is negative. Risk Assessment: Do you want to hurt yourself or someone else? Patient reports no desire to harm self or others. Onset of symptoms was December 30, 2024. 15:15 Method Of Arrival: EMS: [facility] rg5 15:15 Acuity: JOSÉ MIGUEL 3 rg5 Triage Assessment: 15:30 General: Appears uncomfortable, Behavior is cooperative, appropriate for age, anxious. rg5 Pain: Complains of pain in chest Quality of pain is described as aching, crampy. EENT: No signs and/or symptoms were reported regarding the EENT system. Neuro: Level of Consciousness is awake, alert, obeys commands, Oriented to person, place, time, situation. Cardiovascular: Reports chest pain, shortness of breath, Patient's skin is warm and dry. Respiratory: Airway is patent Respiratory effort is even, unlabored. GI: Abdomen is round non-distended. : No signs and/or symptoms were reported regarding the genitourinary system. Derm: Skin is intact, Skin is dry, Skin is normal. Musculoskeletal: Circulation, motion, and sensation intact. Range of motion: intact in all extremities. Historical: - Allergies: 15:30 IV contrast; rg5 15:30 PENICILLINS; rg5 - PMHx: 15:30 Anxiety; coronary atherosclerosis; Hyperlipidemia; Hypertension; Myocardial infarction; rg5 PTSD; Transient cerebral ischemia; - PSHx: 15:30 Coronary Angioplasty; Coronary artery bypass graft; heart stent; umbilical hernia rg5 repair; - Immunization history:: Adult Immunizations unknown. - Infectious Disease History:: Denies. - Social history:: Smoking status: unknown. Screenin:23 [facility] ED Fall Risk Assessment (Adult) History of falling in the last 3 months, rg5 including since admission No falls in past 3 months (0 pts) Confusion or Disorientation No (0 pts) Intoxicated or Sedated No (0 pts) Impaired Gait Yes (1 pt) Mobility Assist Device Used Yes (1 pt) Altered Elimination No (0 pt) Score/Fall Risk Level 0 - 2 = Low Risk. Assessment: 15:30 Reassessment: No changes from previously documented assessment. Patient and/or family rg5 updated on plan of care and expected duration. Pain level reassessed. Patient is alert, oriented x 3, equal unlabored respirations, skin warm/dry/pink. Pain: Complains of pain in chest Pain radiates to right leg and left leg Pain began gradually. 16:00 Reassessment: No changes from previously documented assessment. Patient is alert, rg5 oriented x 3, equal unlabored respirations, skin warm/dry/pink. 17:23 Reassessment: Patient and/or family updated on plan of care and expected duration. Pain rg5 level reassessed. Patient is alert, oriented x 3, equal unlabored respirations, skin warm/dry/pink. Patient states symptoms have improved. 18:45 Reassessment: Patient and/or family updated on plan of care and expected duration. Pain rg5 level reassessed. Patient is alert, oriented x 3, equal unlabored respirations, skin warm/dry/pink. Patient states feeling better. Patient states symptoms have improved. Vital Signs: 15:30 BP 146 / 87; Pulse 76; Resp 19; Temp 98; Pulse Ox 76% ; Pain 9/10; rg5 16:20 BP 129 / 77; Pulse 65; Resp 18; Pulse Ox 95% ; rg5 17:15 BP 135 / 100; Pulse 62; Resp 18; Pulse Ox 96% ; Pain 0/10; rg5 18:45 BP 136 / 71; Pulse 80; Resp 18; Pulse Ox 98% ; Pain 0/10; rg5 15:30 Pain Scale: Adult rg5 17:15 Pain Scale: Adult rg5 18:45 Pain Scale: Adult rg5 ED Course: 15:11 Patient arrived in ED. im 15:13 [facility] sb4 15:13 Joel Shah DO is Attending Physician. sb4 15:16 Darrius Lucio, RN is Primary Nurse. rg5 15:30 Arm band placed on. EKG completed in triage. Results shown to MD. rg5 16:00 No provider procedures requiring assistance completed. Inserted saline lock: 20 gauge rg5 in right wrist, using aseptic technique. Blood collected. Flushed with 10 mL NS. 16:00 Patient maintains SpO2 saturation greater than 95% on room air. rg5 16:06 XRAY Chest (1 view) In Process Unspecified. EDMS 16:39 CT Chest Wo Con In Process Unspecified. EDMS 17:19 Triage completed. rg5 17:23 Patient has correct armband on for positive identification. Bed in low position. Call rg5 light in reach. Client placed on continuous cardiac and pulse oximetry monitoring. NIBP monitoring applied. 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 Pulse ox on. NIBP on. Door closed. Noise minimized. Warm blanket given. Pillow given. 19:18 IV discontinued, bleeding controlled, No redness/swelling at site. Pressure dressing rg5 applied. Administered Medications: 15:30 Drug: Ativan IVP 1 mg IVP once Route: IVP; Site: right wrist; rg5 15:49 Drug: Aspirin PO Chewable Tablet 324 mg PO once; 81 mg tablets x 4 Route: PO; rg5 Medication: 17:23 VIS not applicable for this client. rg5 Outcome: 19:08 Discharge ordered by . sb4 19:18 Discharged to home ambulatory, rg5 19:18 Condition: stable 19:18 Discharge instructions given to patient, 19:44 Patient left the ED. rg5 Signatures: Dispatcher [employer] EDMS Lori Rojas PA-C PA-C sb4 Christine Deluna Darrius Lucio, RN RN rg5
--- NOTE | 2024-12-30 19:09 | EDPHYS ---
Physician Documentation [facility] Name: Fred Hardy Age: 69 yrs Sex: Male : 1955 Arrival Date: 12/30/2024 Time: 15:10 Bed 24 Private MD: ED Physician Joel Shah HPI: 12/30 17:49 This 69 yrs old Male presents to ER via EMS with complaints of Chest Pain, Shortness Of sb4 Breath. 17:49 Patient reports chest pain and shortness of breath over the past 3 days. Reports an sb4 increase in his anxiety as well. Has an extensive cardiac history, reports noncompliance with his medications. Historical: - Allergies: 15:30 IV contrast; rg5 15:30 PENICILLINS; rg5 - PMHx: 15:30 Anxiety; coronary atherosclerosis; Hyperlipidemia; Hypertension; Myocardial infarction; rg5 PTSD; Transient cerebral ischemia; - PSHx: 15:30 Coronary Angioplasty; Coronary artery bypass graft; heart stent; umbilical hernia rg5 repair; - Immunization history:: Adult Immunizations unknown. - Infectious Disease History:: Denies. - Social history:: Smoking status: unknown. ROS: 17:49 Constitutional: Negative for fever, chills, and weight loss, sb4 17:49 Cardiovascular: Positive for chest pain, 17:49 Respiratory: Positive for shortness of breath, 17:49 Psych: Positive for anxiety, 17:49 All other systems are negative, Exam: 17:49 Head/Face: Normocephalic, atraumatic. Eyes: Extra-ocular motions intact. Periorbital sb4 areas with no swelling, redness, or edema. ENT: Mucous membranes moist. Cardiovascular: Regular rate and rhythm with a normal S1 and S2. Respiratory: No increased work of breathing, no retractions or nasal flaring. Abdomen/GI: Soft, non-tender, no distension. Skin: Warm, dry with normal turgor. Normal color with no rashes, no lesions, and no evidence of cellulitis. 17:49 Constitutional: The patient appears alert, awake, anxious, uncomfortable, 17:57 Chest/axilla: Inspection: Sternotomy scar, sb4 Vital Signs: 15:30 BP 146 / 87; Pulse 76; Resp 19; Temp 98; Pulse Ox 76% ; Pain 9/10; rg5 16:20 BP 129 / 77; Pulse 65; Resp 18; Pulse Ox 95% ; rg5 17:15 BP 135 / 100; Pulse 62; Resp 18; Pulse Ox 96% ; Pain 0/10; rg5 18:45 BP 136 / 71; Pulse 80; Resp 18; Pulse Ox 98% ; Pain 0/10; rg5 15:30 Pain Scale: Adult rg5 17:15 Pain Scale: Adult rg5 18:45 Pain Scale: Adult rg5 MDM: 15:14 Medical Screening Exam initiated sb4 18:11 Differential diagnosis: acute OK, abnormal EKG, fluid overload, anxiety, pneumonia, sb4 angina. Data reviewed: vital signs, nurses notes, lab test result(s), EKG, radiologic studies, and as a result, I will discharge patient. Consideration of Admission/Observation Escalation of care including admission/observation considered. Care significantly affected by the following chronic conditions: Hypertension. Scoring Tools HEART Score: History: ECG: Age: Risk Factors: > or = 3 Risk factors for atherosclerotic disease (2), Troponin: Total Score = 5. 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 ED course: Patient is feeling better does not wish to stay in the hospital and I recommended admission. His initial workup was negative. Will obtain a repeat troponin and if it is negative we will provide patient with informed discharge. 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 12/30 15:28 Order name: Basic Metabolic Panel; Complete Time: 16:24 sb4 12/30 15:28 Order name: CBC with Diff; Complete Time: 16:12 sb4 12/30 15:28 Order name: LFT's; Complete Time: 16:24 sb4 12/30 15:28 Order name: Magnesium; Complete Time: 16:24 sb4 12/30 15:28 Order name: NT PRO-BNP; Complete Time: 16:24 sb4 12/30 15:28 Order name: PT-INR; Complete Time: 16:12 sb4 12/30 15:28 Order name: Troponin HS; Complete Time: 16:24 sb4 12/30 18:03 Order name: Troponin High Sensitivity; Complete Time: 19:07 sb4 12/30 15:28 Order name: XRAY Chest (1 view); Complete Time: 16:20 sb4 12/30 16:24 Order name: CT Chest Wo Con; Complete Time: 16:57 sb4 12/30 15:28 Order name: Cardiac monitoring; Complete Time: 16:10 sb4 12/30 15:28 Order name: EKG - Nurse/Tech; Complete Time: 15:48 sb4 12/30 15:28 Order name: IV Saline Lock; Complete Time: 16:10 sb4 12/30 15:28 Order name: Labs collected and sent; Complete Time: 15:57 sb4 12/30 15:28 Order name: O2 Per Protocol; Complete Time: 16:10 sb4 12/30 15:28 Order name: O2 Sat Monitoring; Complete Time: 16:10 sb4 EC:29 Rate is 78 beats/min. Rhythm is regular, Normal Sinus Rhythm. MD interval is normal at sb4 184 msec. QRS interval is normal at 84 msec. QT interval is normal at 376 msec. No Q waves. T waves are Normal. No ST changes noted. Clinical impression: Normal ECG. Interpreted by me. Reviewed by me. Administered Medications: 15:30 Drug: Ativan IVP 1 mg IVP once Route: IVP; Site: right wrist; rg5 15:49 Drug: Aspirin PO Chewable Tablet 324 mg PO once; 81 mg tablets x 4 Route: PO; rg5 Disposition: 19:18 I was immediately available on-site in the Emergency Department for consultation in the ms3 care of the patient. Disposition Summary: 12/30/24 19:08 Discharge Ordered Notes: Location: Home sb4 Problem: new sb4 Symptoms: are resolved sb4 Condition: Stable sb4 Diagnosis - Chest pain, unspecified sb4 Followup: sb4 - With: Emergency Department - When: As needed - Reason: Trouble breathing, Worsening of condition Discharge Instructions: - Discharge Summary Sheet sb4 - Nonspecific Chest Pain, Adult, [id number] sb4 Forms: - Patient Portal Instructions sb4 - Leadership Thank You Letter sb4 Signatures: Dispatcher [employer] EDMS Joel Shah, DO DO ms3 Lori Rojas, PA-C PA-C sb4 Darrius Lucio, RN RN rg5 Corrections: (The following items were deleted from the chart) 15:29 15:29 BASIC METABOLIC PANEL+C.LAB.BRZ ordered. EDMS EDMS 15: 15:29 CBC+H.LAB.BRZ ordered. EDMS EDMS 15:29 15:29 HEPATIC FUNCTION+C.LAB.BRZ ordered. EDMS EDMS 15: 15:29 MAGNESIUM+C.LAB.BRZ ordered. EDMS EDMS 15:29 15:29 PROBNP+C.LAB.BRZ ordered. EDMS EDMS 15:29 15:29 PROTIME (+INR)+COAG.LAB.BRZ ordered. EDMS EDMS 15:29 15:29 Troponin High Sensitivity+C.LAB.BRZ ordered. EDMS EDMS 15:29 15:29 Chest Single View+RAD.RAD.BRZ ordered. EDMS EDMS
[2024-12-31 01:43] VITALS: TEMP 98
[2024-12-31 01:47] VITALS: BP 136/71; O2SAT 98
== END 2024-12-30 19:44 | disposition home or self-care (01) ==
LOC: ER 15:10
DX: R07.89 Other chest pain (principal); F41.9 Anxiety disorder, unspecified; I10 Essential (primary) hypertension; I25.2 Old myocardial infarction; Z95.1 Presence of aortocoronary bypass graft; Z95.818 Presence of other cardiac implants and grafts
CPT/HCPCS: 36415; 71045; 71250; 80048; 80076; 83735; 83880; 84484; 85025; 85610; 93005; 96374; 99285